=== PATIENT | male | born 1945 | race Caucasian/White ===

== ENCOUNTER → 2017-02-11 | Outpatient (CLI) | payer OTHER ==
[~2017-02-11] MED LIST: AMR2 PO; CPRDOTS OTR; FLM4 PO; GADAVIST IV PRN; HYDCR1CL TOP; INSDGIPEN SC; LISI-787 PO; METF-384 PO; VGR50 PO
--- NOTE | 2017-02-11 21:47 | DIAGNOSTIC IMAGING REPORT ---
MRI right foot RIGHT LOWER EXT NON JOINT COMBO CLINICAL HISTORY: OSTEOMYELITIS Right osteomyelitis TECHNIQUE: Multiaxial MRI acquisition COMPARISON STUDY: None FINDINGS: Severe cellulitis-type process over the dorsal aspect of the osseous structures of the foot and forefoot. Findings of bone marrow replacement involving the proximal and distal phalanx of the great toe. Considerable associated granulation and/or inflammatory tissue. These regions show considerable postcontrast enhancement. Very subtle in homogeneity medial lateral aspect of the distal first metatarsal raise the possibility of very early and or minimal osteomyelitis like change. The remaining phalanges show generally unremarkable signal characteristics. No additional bone marrow replacing process is identified. There is no evidence for a drainable abscess or collection. IMPRESSION: 1. Findings of diffuse cellulitis, although there is no evidence for drainable abscess or collection. 2. Osteomyelitis with bony destructive change involving the proximal and distal phalanx of the great toe. 3. Possible early minimal osteomyelitis-type change distal aspect first metatarsal. 4. No additional foci of osteomyelitis.. 5. Moderate generalized degenerative change. Electronically signed by: Abdullahi Zapata M.D. 02/11/2017 9:45 PM Dictated Date/Time: 02/11/2017 9:42 PM
== END | disposition home or self-care (01) ==
LOC: C.MRI 19:46
PROVIDERS: ATTEND Physician Assistant
DX: M86.171 Other acute osteomyelitis, right ankle and foot (principal)

== ENCOUNTER 2018-03-26 13:05 | Inpatient (IN) | payer OTHER ==
[~2018-03-26] VITALS: Ht 162.6 cm; Wt 92.8 kg
[2018-03-26] VITALS (12 sets, daily range): BP systolic 103–133; BP diastolic 61–81; PULSE 72–90; TEMP 36.8–37.8; O2SAT 93–97; Ht 162.6 cm; Wt 92.8 kg
[~2018-03-26 13:05] MED LIST changes: -GADAVIST IV PRN
[2018-03-26] MEDS ORDERED: DiphenhydrAMINE HCL 50 MG/ML VIAL IV STA (13:41)
[2018-03-26] MEDS ORDERED: FAMOTIDINE 20MG/5ML IV PUSH IV STA (13:41)
[2018-03-26] MEDS ORDERED: METHYLPREDNISOLONE 125 MG VIAL IV STA (13:41)
[2018-03-26 14:23] LABS: BASO % 0.3 %; BASO ABS # 0.03 K/uL (0-0.2); EOS % 1.8 %; EOS ABS # 0.21 K/uL (0-0.5); HEMATOCRIT 43.8 % (42-52); HEMOGLOBIN 15.5 g/dL (14.0-18.0); IG# 0.03 K/uL (0.00-0.02); LYMPH % 26.7 %; LYMPH ABS # 3.13 K/uL (1.2-3.4); MEAN CELL VOLUME 84.1 fL (80-100); MEAN CORPUSCULAR HEMOGLOBIN 29.8 pg (25-34); MEAN CORPUSCULAR HGB CONC 35.4 g/dl (32-36); MEAN PLATELET VOLUME 10.5 fL (7.4-10.4); MONO % 7.2 %; MONO ABS # 0.85 K/uL (0.11-0.59); NEUT % 63.7 %; NEUT ABS # 7.49 K/uL (1.4-6.5); PLATELET COUNT 253 K/uL (130-400); RED CELL DISTRIBUTION WIDTH CV 12.2 % (11.5-14.5); RED CELL DISTRIBUTION WIDTH SD 37.3 fL (36.4-46.3); WHITE BLOOD COUNT 11.74 K/uL (4.8-10.8)
[2018-03-26 14:35] LABS: CALCIUM 9.1 mg/dl (8.5-10.1); CREATININE 1.24 mg/dl (0.60-1.40); POTASSIUM 3.5 mmol/L (3.5-5.1)
[2018-03-26] MEDS ORDERED: LSN/10125 PO (14:52)
[2018-03-26] MEDS ORDERED: ASPI81TA28 PO (14:52)
[2018-03-26] MEDS ORDERED: NVLG SC (14:52)
[2018-03-26] MEDS ORDERED: SIMV80TA2 PO (14:52)
[2018-03-26] MEDS ORDERED: DiphenhydrAMINE HCL 50 MG/ML VIAL IV PRN (15:45)
[2018-03-26] MEDS ORDERED: CLONIDINE HCL 0.1 MG TAB PO PRN (15:45)
[2018-03-26] MEDS ORDERED: ALUMINUM/MAGNESIUM/SIMETH (MAALOX MAX) 30 ML UDC PO PRN (15:45)
[2018-03-26] MEDS ORDERED: FAMOTIDINE IV INJ 20 MG in DEXTROSE 5% 100ML 100 ML IV SCH (15:45)
[2018-03-26] MEDS ORDERED: NITROGLYCERIN 0.4 MG SL PER TAB CHARGE SL PRN (15:45)
[2018-03-26] MEDS ORDERED: ACETAMINOPHEN 325 MG TAB PO PRN (15:45)
[2018-03-26] MEDS ORDERED: ONDANSETRON INJ 2 MG/ML 2 ML VIAL IV PRN (15:45)
[2018-03-26] MEDS ORDERED: GLUCAGON FOR INJ 1 MG VIAL IM PRN (16:15)
[2018-03-26] MEDS ORDERED: CARBOHYDRATES FOR HYPOGLYCEMIA PO PRN (16:15)
[2018-03-26] MEDS ORDERED: DEXTROSE 50% 50 ML SYR IV PRN (16:15)
[2018-03-26] MEDS ORDERED: GLUCOSE 40% GEL 15 GM TUBE PO PRN (16:15)
[2018-03-26] MEDS ORDERED: GLUCOSE 10 TABS/TUBE PO PRN (16:15)
--- NOTE | 2018-03-26 16:44 | HISTORY & PHYSICAL EXAMINATION ---
DATE OF ADMISSION: 03/26/2018 CHIEF COMPLAINT: Angioedema. HISTORY OF PRESENT ILLNESS: This is a 72-year-old male with past medical history significant for type 2 diabetes, hyperlipidemia, obesity, hypertension, otitis media, chronic mastoiditis, unilateral hearing loss, presents with angioedema. The patient says in the midnight, he woke up with the swelling of the tongue, and this was not getting better, so he came to the ER. Initially, his tongue was swollen very much. His lips were also swollen, and the ER physician thought of intubating him, but he was responding well with Solu-Medrol, Pepcid, and Benadryl. Swelling has much improved. Denies any shortness of breath. He says he is hungry and wants to eat. Denies any headaches, no blurred vision. He is hard of hearing. He has some runny nose. Denies sore throat, denies cough, no fever, no chills, no chest pain, no shortness of breath, no abdominal pain, no nausea. Normal bowel and bladder movements. Currently resting comfortably and hemodynamically stable. ALLERGIES: No known drug allergies. PAST MEDICAL HISTORY: As mentioned above. PAST SURGICAL HISTORY: Colonoscopy, mastoid surgery, left foot surgery, shoulder arthroscopic surgery. MEDICATIONS: The patient is on aspirin 81 mg p.o. daily, Lantus 35 units at bedtime, Novolin N 5 units under skin b.i.d., lisinopril/hydrochlorothiazide 10/12.5 mg p.o. daily, metformin 1000 mg p.o. b.i.d., simvastatin 80 mg p.o. daily, Flomax 0.4 mg p.o. daily. FAMILY HISTORY: Significant for father who of lung cancer at the age of 54. Mother has hypertension. Uncles, brothers, and aunts have diabetes. SOCIAL HISTORY: . Former smoker, quit in 1980. Alcohol occasional. No drug use. REVIEW OF SYMPTOMS: As per HPI. Rest of review of systems negative. PHYSICAL EXAMINATION: GENERAL: The patient is moderate build, not in distress. VITAL SIGNS: Temperature 37, pulse 89, respiratory rate is 16, blood pressure 124/75, oxygen saturation 93% on room air. HEENT: No pallor, no icterus. Pupils equal, round, reactive to light. Swollen tongue and swollen lips. NECK: No JVD, no carotid bruit, no neck masses. CARDIOVASCULAR SYSTEM: S1 and S2 heard, regular rate and rhythm, no murmur, no gallop. RESPIRATORY SYSTEM: Normal AP diameter. No accessory muscle use. No wheezing, no crackles. GASTROINTESTINAL: Abdomen is soft, bowel sounds present, nontender, no distention. CENTRAL NERVOUS SYSTEM: Cranial nerves II through XII grossly intact. Nonfocal. EXTREMITIES: No edema, no erythema. LABORATORY DATA: WBC 11.7, hemoglobin 15.5, hematocrit 43.8, platelets 253. Sodium 132, potassium 3.5, chloride 96, CO2 of 27, BUN 15, creatinine 1.2, serum glucose 315. Calcium 9.1. PT 10.4, INR 1, APTT 26. ASSESSMENT AND PLAN: This is a 72-year-old male who presents with 1. Angioedema, The patient says there is no change in medication recently. No insect bites. No food allergy. Probably lisinopril could be a culprit although the patient is on it for about 10 years on this medication. We will hold lisinopril/hydrochlorothiazide medication. The patient received IV methylprednisone, IV Pepcid, and IV Benadryl in the ER. We will continue with Claritin, Pepcid, and methylprednisolone. Monitor on the tele floor and IV Benadryl p.r.n. The patient was receiving 2 units of fresh frozen plasma in the ER. 2. Diabetes. The patient is on Lantus 25 units at bedtime and insulin sliding scale. Hold metformin. We will monitor the blood sugar. 3. Hypertension. Holding lisinopril/hydrochlorothiazide. The patient is on clonidine p.r.n. We will monitor the blood pressure. May discharge him on amlodipine. 4. Hyperlipidemia, on statin, which is on hold for now. 5. The patient is to continue Flomax. 6. Deep venous thrombosis prophylaxis: SCDs. 7. Disposition: Admit to tele floor. Expect to discharge him home and follow with his family doctor. Level 1. Full code. MTDD
[2018-03-26] MEDS: SODIUM CHLORIDE 0.9% 1000ML 1,000 ML IV SCH (17:10)
[2018-03-26] MEDS: INSULIN ASPART 100 UNITS/ML 3 ML PEN SC SCH ×2 (18:00→21:34)
--- NOTE | 2018-03-26 19:21 | EMERGENCY ROOM VISIT NOTE ---
History Report prepared by Shira: Felicia Robledo Under the Supervision of: Dr. Carlos Vega M.D. First contact with patient: 13:34 Chief Complaint: FACIAL PAIN/INJURY Stated Complaint: SWELLED TOUNGE History of Present Illness The patient is a 72 year old male who presents to the Emergency Room with complaints of a sudden swollen tongue since 0001 this morning. He states that the swelling has gone down since. The patient reports having shortness of breath initially but has since resolved since the swelling in his tongue has decreased. He also complains of swollen neck, but denies having rashes and fevers. He states that he has been on Lisinopril for years. He denies eating anything usual. The patient denies any pain to his neck or mouth or recent dental work. Source of History: patient Onset: 2017 this morning Position: tongue Symptom Intensity: moderate Quality: other (swollen) Timing: other (Improving) Associated Symptoms: + SOB, No fevers, No rash Note: additional symptom: swollen neck Review of Systems See HPI for pertinent positives & negatives. A total of 10 systems reviewed and were otherwise negative. Past Medical & Surgical Medical Problems: (1) Angioedema (2) Hypertension Family History No pertinent family history Social History Smoking Status: Former Smoker Marital Status: Occupation Status: retired Current/Historical Medications Scheduled Aspirin (Aspirin Ec), 81 MG PO DAILY Hctz/Lisinopril (Lisinopril/Hctz 10/12.5 Mg), 1 TAB PO DAILY Insulin Aspart (Novolog), 5 UNITS SC TID Insulin Glargine (Lantus Solostar), 35 UNITS SC HS Metformin Hcl (Glucophage), 1,000 MG PO BID Simvastatin (Zocor), 80 MG PO QPM Tamsulosin HCl (Tamsulosin HCl), 0.4 MG PO DAILY Allergies Coded Allergies: No Known Allergies (Unverified , 03/26/18) Physical Exam Vital Signs Date Time Temp Pulse Resp B/P (MAP) Pulse Ox O2 Delivery O2 Flow Rate FiO2 03/26/18 15:37 37.0 90 18 117/77 97 03/26/18 15:22 37.0 73 16 124/75 93 03/26/18 15:06 72 16 125/78 94 Room Air 03/26/18 14:59 76 18 133/72 94 Room Air 03/26/18 14:51 95 Room Air 03/26/18 14:51 95 Room Air 03/26/18 14:48 76 20 112/72 95 Room Air 03/26/18 14:36 72 19 133/75 95 Room Air 03/26/18 14:23 72 19 119/73 94 03/26/18 14:18 78 18 122/66 96 Room Air 03/26/18 14:10 96 Room Air 03/26/18 14:08 78 20 119/69 96 Room Air 03/26/18 14:05 96 Room Air 03/26/18 14:01 96 Room Air 03/26/18 13:58 80 20 125/87 96 Room Air 03/26/18 13:48 82 03/26/18 13:23 37.1 90 20 122/74 95 Room Air Physical Exam Constitutional: Vital signs reviewed. Eyes: Pupils are equal round reactive to light. Conjunctiva are noninjected. ENT: Mild swelling to the tongue, no uvula edema. No significant swelling to the throat, no elevation of the tongue. No tenderness to the submental region. Patient is edentulous. Mucous membranes are moist. Respiratory: Clear to auscultation bilaterally. Breath sounds are equal bilaterally. Cardiovascular: Regular rate and rhythm. No rubs or gallops. GI: Soft, nondistended and nontender. Bowel sounds are present. Musculoskeletal: No peripheral edema. No lower extremity tenderness. Integumentary: No cyanosis. No urticaria. Neurological: The patient is awake and alert. No focal deficits. Psychiatric: Normal affect. Medical Decision & Procedures Laboratory Results 03/26/18 13:51 Red Blood Count 5.21, Mean Corpuscular Volume 84.1, Mean Corpuscular Hemoglobin 29.8, Mean Corpuscular Hemoglobin Concent 35.4, Mean Platelet Volume 10.5, Neutrophils (%) (Auto) 63.7, Lymphocytes (%) (Auto) 26.7, Monocytes (%) (Auto) 7.2, Eosinophils (%) (Auto) 1.8, Basophils (%) (Auto) 0.3, Neutrophils # (Auto) 7.49, Lymphocytes # (Auto) 3.13, Monocytes # (Auto) 0.85, Eosinophils # (Auto) 0.21, Basophils # (Auto) 0.03 03/26/18 13:51 Test 03/26/18 13:51 03/26/18 14:06 White Blood Count 11.74 K/uL (4.8-10.8) Red Blood Count 5.21 M/uL (4.7-6.1) Hemoglobin 15.5 g/dL (14.0-18.0) Hematocrit 43.8 % (42-52) Mean Corpuscular Volume 84.1 fL (80-100) Mean Corpuscular Hemoglobin 29.8 pg (25-34) Mean Corpuscular Hemoglobin Concent 35.4 g/dl (32-36) Platelet Count 253 K/uL (130-400) Mean Platelet Volume 10.5 fL (7.4-10.4) Neutrophils (%) (Auto) 63.7 % Lymphocytes (%) (Auto) 26.7 % Monocytes (%) (Auto) 7.2 % Eosinophils (%) (Auto) 1.8 % Basophils (%) (Auto) 0.3 % Neutrophils # (Auto) 7.49 K/uL (1.4-6.5) Lymphocytes # (Auto) 3.13 K/uL (1.2-3.4) Monocytes # (Auto) 0.85 K/uL (0.11-0.59) Eosinophils # (Auto) 0.21 K/uL (0-0.5) Basophils # (Auto) 0.03 K/uL (0-0.2) RDW Standard Deviation 37.3 fL (36.4-46.3) RDW Coefficient of Variation 12.2 % (11.5-14.5) Immature Granulocyte % (Auto) 0.3 % Immature Granulocyte # (Auto) 0.03 K/uL (0.00-0.02) Prothrombin Time 10.4 SECONDS (9.0-12.0) Prothromb Time International Ratio 1.0 (0.9-1.1) Activated Partial Thromboplast Time 26.0 SECONDS (21.0-31.0) Partial Thromboplastin Ratio 1.0 Anion Gap 7.0 mmol/L (3-11) Est Creatinine Clear Calc Drug Dose 55.3 ml/min Estimated GFR () 66.9 Estimated GFR (Non- 57.7 BUN/Creatinine Ratio 12.1 (10-20) Calcium Level 9.1 mg/dl (8.5-10.1) Beta-Hydroxybutyric Acid 0.94 mg/dL (0.2-2.81) Hepatitis C Antibody Screen NEG (NEG) Laboratory results as reviewed by me. Medications Administered Medications (Trade) Dose Ordered Sig/Larissa Route Start Time Stop Time Status Last Admin Dose Admin Methylprednisolone Sodium Succinate (Solu-Medrol IV) 125 mg NOW STAT IV 03/26/18 13:41 03/26/18 13:44 DC 03/26/18 13:53 125 MG Diphenhydramine HCl (Benadryl Inj) 50 mg NOW STAT IV 03/26/18 13:41 03/26/18 13:44 DC 03/26/18 13:54 50 MG Famotidine (Pepcid 20mg Iv Push) 20 mg ONE STAT IV 03/26/18 13:41 03/26/18 13:44 DC 03/26/18 13:51 20 MG ED Course 1336: The patient was evaluated in room C8. A complete history and physical exam was performed. 1341: Ordered Famotidine 20 mg IV, Benadryl Inj 50 mg IV, Methylprednisolone Sodium Succinate 125 mg IV. 1345: The patient was moved to the trauma bay. I again explained carefully why we are giving him FFP and his diagnosis and treatment plan. The patient denies having worsening symptoms. He also consented to intubation if necessary. 1410: I spoke to Dr. Posada who said that he is happy to take the patient to the ICU if necessary. I said I will speak to the hospitalist to see how they feel. He agrees that it is unlikely to be Bryan's due to rapid improvement. 1413: I reassessed the patient. We are still waiting for FFP. He denies any symptoms besides being hungry. He has no change in appearance. 1452: I spoke with Mana Ramos PA-C of the [facility] Hospitalist Service. We discussed the patient and his results. The patient will be further evaluated by Mana Ramos PA-C. 1545: I checked on the patient. FFP is infusing. He does not have any change in symptoms. Medical Decision This is a 72-year-old male who presents with swelling to his tongue and throat. Differential diagnosis includes MARYSOL inhibitor induced angioedema, idiopathic angioedema, allergic reaction, Bryan's angina I did perform a limited focused review of portions of the patient's old chart on the electronic medical record. The patient has had no recent pertinent visits to this hospital. I did evaluate the patient as noted above. Patient is presenting with angioedema. He did show me a picture from how he first looked on his phone. He had severe swelling of his tongue at that time which was protruding out of his mouth. Currently he has some mild swelling but has significant swelling to his neck. He does not require immediate intubation. He has no difficulty breathing or stridor. I do suspect he has MARYSOL inhibitor induced angioedema as he is on Zestoretic. I do not believe he has Claudia's angina. The patient is edentulous and has no pain to his throat or mouth. He also has no fever. Additionally he has had significant improvement spontaneously which is not consistent with Bryan's. IV access was established. The patient was moved to the trauma bay. I did obtain consent for transfusion of blood products. I did transfuse the patient 2 units of FFP. I did treat the patient with IV Solu- Medrol, Pepcid and Benadryl. The patient was placed on a continuous gambling monitor. I did order and personally review the patient's 12-lead EKG as described above. I did order and review the patient's blood work as noted in the electronic medical record. He is hyperglycemic. He is mildly hyponatremic. I did reassess the patient multiple times. I did explain the diagnosis to him and his . I did discuss case with the manager of training. I did discuss case with the hospitalist and case preparer and liner. He was accepted to the ICU. Medication Reconcilliation Current Medication List: was personally reviewed by me Blood Pressure Screening Patient's blood pressure: Normal blood pressure Consults Time Called: 1400 Consulting Physician: Dr. Posada, Vice President Of Compliance Returned Call: [address] Posada who said that he is happy to take the patient to the ICU if necessary. I said I will speak to the hospitalist to see how they feel. He agrees that it is unlikely to be Bryan's due to rapid improvement. Additional Consults: Time Called: 1452 Consulted Physician: Mana Ramos PA-C, [facility] Returned Call: 1452 Additional Comments: I spoke with Mana Ramos PA-C of the [facility]ist [facility]. We discussed the patient and his results. The patient will be further evaluated by Mana Ramos PA-C. Impression Primary Impression: Angioedema Additional Impressions: Hyponatremia Hyperglycemia Critical Care I have personally spent 40 minutes of critical care time in the direct management of this patient. This includes bedside care, interpretation of diagnostic studies, and testing, discussion with consultants, patient, and family members, and other required patient management activities. This 40 minutes is in excess of all separately billable procedures. Scribe Attestation The scribe's documentation has been prepared under my direct and personally reviewed by me in its entirety. I confirm that the note above accurately reflects all work, treatment, procedures, and medical decision making performed by me. Departure Information Dispostion Being Evaluated By Hospitalist Referrals Lamberto Razo M.D. (PCP) Patient Instructions [facility] Problem Qualifiers Primary Impression: Angioedema Encounter type: initial encounter Qualified Codes: T78.3XXA - Angioneurotic edema, initial encounter
[2018-03-26] MEDS ORDERED: INSULIN GLARGINE SOLOSTAR 100 UNITS/ML 3 ML PEN SC SCH (21:00)
[2018-03-26] MEDS ORDERED: CETIRIZINE HCL 10 MG TAB PO SCH (21:00)
[2018-03-27] MEDS ORDERED: INSULIN ASPART 100 UNITS/ML 3 ML PEN SC ONE (00:15)
[2018-03-27 00:25] VITALS: BP 123/72; PULSE 71; TEMP 37; O2SAT 95
[2018-03-27 04:09] VITALS: BP 118/66; PULSE 66; TEMP 37; O2SAT 92
[2018-03-27] MEDS: SODIUM CHLORIDE 0.9% 1000ML 1,000 ML IV SCH (05:19)
[2018-03-27] MEDS ORDERED: FAMOTIDINE IV INJ 20 MG in SYRINGE 3 ML IV SCH (06:00)
[2018-03-27 06:13] LABS: BASO % 0.1 %; BASO ABS # 0.01 K/uL (0-0.2); HEMATOCRIT 40.6 % (42-52); HEMOGLOBIN 14.3 g/dL (14.0-18.0); IG# 0.03 K/uL (0.00-0.02); LYMPH ABS # 1.62 K/uL (1.2-3.4); MEAN CELL VOLUME 84.8 fL (80-100); MEAN CORPUSCULAR HEMOGLOBIN 29.9 pg (25-34); MEAN CORPUSCULAR HGB CONC 35.2 g/dl (32-36); MEAN PLATELET VOLUME 10.4 fL (7.4-10.4); MONO % 3.5 %; MONO ABS # 0.47 K/uL (0.11-0.59); NEUT % 84.2 %; PLATELET COUNT 256 K/uL (130-400); RED CELL DISTRIBUTION WIDTH SD 37.3 fL (36.4-46.3); WHITE BLOOD COUNT 13.53 K/uL (4.8-10.8)
[2018-03-27 06:43] VITALS: BP 106/59; PULSE 61; TEMP 36.9; O2SAT 94
[2018-03-27 06:45] LABS: CALCIUM 8.7 mg/dl (8.5-10.1); CREATININE 0.96 mg/dl (0.60-1.40); POTASSIUM 3.4 mmol/L (3.5-5.1)
[2018-03-27] MEDS ORDERED: POTASSIUM CHLORIDE 10 MEQ TABCR PO STA (07:35)
[2018-03-27] MEDS: INSULIN ASPART 100 UNITS/ML 3 ML PEN SC SCH ×2 (08:01→11:55)
[2018-03-27] MEDS ORDERED: METHYLPREDNISOLONE IV 60 MG in SYRINGE 0 ML IV SCH (09:00)
[2018-03-27] MEDS ORDERED: TAMSULOSIN HCL 0.4 MG CAP PO SCH (09:00)
[2018-03-27] MEDS ORDERED: ASPIRIN 81 MG ECTAB PO SCH (09:00)
[2018-03-27] MEDS ORDERED: INSULIN GLARGINE SOLOSTAR 100 UNITS/ML 3 ML PEN SC ONE (10:00)
[2018-03-27] MEDS ORDERED: AMLODIPINE BESYLATE 5 MG TAB PO ONE (10:00)
[2018-03-27 10:23] VITALS: BP 106/59; PULSE 61; TEMP 36.9; O2SAT 94
[2018-03-27 10:54] VITALS: BP 114/66; PULSE 67; TEMP 36.6; O2SAT 96
[2018-03-27] MEDS ORDERED: PRED10TA PO (14:56)
[2018-03-27] MEDS ORDERED: ZYR10 PO (14:56)
[2018-03-27] MEDS ORDERED: NRV5 PO (14:56)
[2018-03-27] MEDS ORDERED: RANI150T3 PO (14:56)
--- NOTE | 2018-03-27 15:00 | Discharge Instructions ---
Discharge Instructions Date of Service March 27, 2018. Admission Reason for Admission: Angioedema Discharge Discharge Diagnosis / Problem: angioedema Discharge Goals Goal(s): Decrease discomfort Activity Recommendations Activity Limitations: resume your previous activity . Instructions / Follow-Up Instructions / Follow-Up FOLLOWUP WITH FAMILY DOCTOR ON April AT 12:45PM BLOOD PRESSURE CHECK UP WITH FAMILY DOCTOR. STOPPED BLOOD PRESSURE MEDICATION LISINOPRIL/HCTZ( LISINOPRIL MOST LIKELY CAUSE FOR ALLERGIC REACTION). STARTED ON NEW BLOOD PRESSURE MEDICATION AMLODIPINE 5MG ONE TABLET DAILY. ALSO PRESCRIBED PREDNISONE TAPERING DOSE, ZYRTEC AND ZANTAC FOR COUPLE OF WEEKS. ALLERGY/IMMUNOLOGY REFERRAL PER FAMILY DOCTOR. MONITOR BLOOD SUGARS WHILE ON PREDNISONE Current Hospital Diet Patient's current hospital diet: Diabetes Type 2 Diet, AHA Diet (Heart Healthy) Discharge Diet Recommended Diet: AHA Diet (Heart Healthy), Diabetes Type 2 Diet Pending Studies Studies pending at discharge: no Medical Emergencies . Who to Call and When: Medical Emergencies: If at any time you feel your situation is an emergency, please call 911 immediately. . Non-Emergent Contact Non-Emergency issues call your: Primary Care Provider . . "Provider Documentation" section prepared by Yannick Parson. .
--- NOTE | 2018-03-27 19:16 | Progress Note ---
Internal Med Progress Note Date of Service: March 27, 2018. Provider Documentation: SUBJECTIVE: resting comfortably tounge swelling and lips swelling resolved tolerating regular diet no sob afebrile wants to go home OBJECTIVE: Vital Signs-as noted below Exam: General-alert and awake and oriented. Not in distress ENT-normal hearing Neck-supple Lungs-cta b/l no wheezing or crackles Heart-s1 and s2 heard regular rate and rhythm,no Murmur Abdomen-soft bowel sounds present non tender no distension Extremities-no edema present non tender Neuro-alert and awake moves extremities Lab data as noted below. ASSESSMENT & PLAN: This is a 72-year-old male who presents with 1. Angioedema, The patient says there is no change in medication recently. No insect bites. No food allergy. Probably lisinopril could be a culprit although the patient is on it for about 10 years on this medication. We will hold lisinopril/hydrochlorothiazide medication. The patient received IV methylprednisone, IV Pepcid, and IV Benadryl in the ER. We will continue with zyrtec, Pepcid, and methylprednisolone. Monitor on the tele floor and IV Benadryl p.r.n. The patient was receiving 2 units of fresh frozen plasma in the ER. resolved d/c on prednisone taper, zyrtec and zantac f/u with pcp. 2. Diabetes. The patient is on Lantus 25 units at bedtime and insulin sliding scale. Hold metformin. We will monitor the blood sugar. d/c on home meds. 3. Hypertension. Holding lisinopril/hydrochlorothiazide. The patient is on clonidine p.r.n. stopped lisnopril/hctz on discharge. started on amlodipine 5mg daily f/u with pcp. 4. Hyperlipidemia, on statin, 5. The patient is to continue Flomax. discharged home Vital Signs: Date Time Temp Pulse Resp B/P (MAP) Pulse Ox O2 Delivery O2 Flow Rate FiO2 03/27/18 14:59 Room Air 03/27/18 11:32 Room Air 03/27/18 10:54 36.6 67 20 114/66 (82) 96 Room Air 03/27/18 10:23 36.9 61 16 94 Room Air 03/27/18 08:00 Room Air 03/27/18 06:43 36.9 61 16 106/59 (75) 94 Room Air 03/27/18 04:09 37.0 66 16 118/66 (83) 92 Room Air 03/27/18 04:00 Room Air 03/27/18 00:25 37.0 71 16 123/72 (89) 95 Room Air 03/26/18 23:59 Room Air 03/26/18 22:58 73 18 118/75 94 03/26/18 21:55 37.6 73 17 121/72 94 03/26/18 20:55 37.8 74 17 127/81 94 03/26/18 20:00 Room Air 03/26/18 19:55 37.8 78 17 103/61 94 03/26/18 19:25 36.8 75 16 115/70 94 Lab Results: Results Past 24 Hours Test 03/26/18 20:44 03/27/18 00:01 03/27/18 05:39 03/27/18 07:29 Range/Units Bedside Glucose 391 240 167 70-99 mg/dl White Blood Count 13.53 4.8-10.8 K/uL Red Blood Count 4.79 4.7-6.1 M/uL Hemoglobin 14.3 14.0-18.0 g/dL Hematocrit 40.6 42-52 % Mean Corpuscular Volume 84.8 80-100 fL Mean Corpuscular Hemoglobin 29.9 25-34 pg Mean Corpuscular Hemoglobin Concent 35.2 32-36 g/dl Platelet Count 256 130-400 K/uL Mean Platelet Volume 10.4 7.4-10.4 fL Neutrophils (%) (Auto) 84.2 % Lymphocytes (%) (Auto) 12.0 % Monocytes (%) (Auto) 3.5 % Eosinophils (%) (Auto) 0.0 % Basophils (%) (Auto) 0.1 % Neutrophils # (Auto) 11.40 1.4-6.5 K/uL Lymphocytes # (Auto) 1.62 1.2-3.4 K/uL Monocytes # (Auto) 0.47 0.11-0.59 K/uL Eosinophils # (Auto) 0.00 0-0.5 K/uL Basophils # (Auto) 0.01 0-0.2 K/uL RDW Standard Deviation 37.3 36.4-46.3 fL RDW Coefficient of Variation 12.0 11.5-14.5 % Immature Granulocyte % (Auto) 0.2 % Immature Granulocyte # (Auto) 0.03 0.00-0.02 K/uL Sodium Level 135 136-145 mmol/L Potassium Level 3.4 3.5-5.1 mmol/L Chloride Level 101 98-107 mmol/L Carbon Dioxide Level 29 21-32 mmol/L Anion Gap 5.0 3-11 mmol/L Blood Urea Nitrogen 15 7-18 mg/dl Creatinine 0.96 0.60-1.40 mg/dl Est Creatinine Clear Calc Drug Dose 71.5 ml/min Estimated GFR () 91.2 Estimated GFR (Non- 78.7 BUN/Creatinine Ratio 16.0 10-20 Random Glucose 128 70-99 mg/dl Calcium Level 8.7 8.5-10.1 mg/dl Magnesium Level 2.0 1.8-2.4 mg/dl Test 03/27/18 11:24 Range/Units Bedside Glucose 212 70-99 mg/dl
--- NOTE | 2018-03-27 19:34 | Discharge Summary ---
Discharge Summary Date of Service March 27, 2018. Discharge Summary Admission Date: March 26, 2018 at 15:48 Discharge Date: March 27, 2018 Discharge Disposition: Home Principal Diagnosis: ANGIOEDEMA Secondary Diagnoses/Problems: type 2 diabetes, hyperlipidemia, obesity, hypertension, otitis media, chronic mastoiditis, unilateral hearing loss Medication Reconciliation New Medications: Amlodipine Besylate (Amlodipine Besylate) 5 Mg Tab 5 MG PO DAILY, #30 TAB 1 Refill Prednisone Tab (Prednisone) 10 Mg Tab 50 MG PO UD, #30 TAB PREDNSIONE 50MG PO DAILY X 2 DAYS THEN PREDNSIONE 40MG PO DAILY X 2 DAYS THEN PREDNSIONE 30MG PO DAILY X 2 DAYS THEN PREDNSIONE 20MG PO DAILY X 2 DAYS THEN PREDNSIONE 10MG PO DAILY X 2 DAYS THEN STOP Ranitidine Hcl (Zantac) 150 Mg Tab 150 MG PO BID, #30 TAB Cetirizine HCl (All Day Allergy) 10 Mg Tab 10 MG PO HS for 14 Days, TAB Continued Medications: Aspirin (Aspirin Ec) 81 Mg Tab 81 MG PO DAILY Insulin Aspart (Novolog) 100 Units/Ml Inj 5 UNITS SC TID Insulin Glargine (Lantus Solostar) 100 Unit/Ml Inj 35 UNITS SC HS, PEN Metformin Hcl (Glucophage) 1,000 Mg Tab 1000 MG PO BID, TAB Simvastatin (Zocor) 80 Mg Tab 80 MG PO QPM, TAB Tamsulosin HCl (Tamsulosin HCl) 0.4 Mg Cap 0.4 MG PO DAILY Discontinued Medications: Hctz/Lisinopril (Lisinopril/Hctz 10/12.5 Mg) 1 Ea Tab 1 TAB PO DAILY, TAB Admission Information HPI (per Admitting provider): : This is a 72-year-old male with past medical history significant for type 2 diabetes, hyperlipidemia, obesity, hypertension, otitis media, chronic mastoiditis, unilateral hearing loss, presents with angioedema. The patient says in the midnight, he woke up with the swelling of the tongue, and this was not getting better, so he came to the ER. Initially, his tongue was swollen very much. His lips were also swollen, and the ER physician thought of intubating him, but he was responding well with Solu-Medrol, Pepcid, and Benadryl. Swelling has much improved. Denies any shortness of breath. He says he is hungry and wants to eat. Denies any headaches, no blurred vision. He is hard of hearing. He has some runny nose. Denies sore throat, denies cough, no fever, no chills, no chest pain, no shortness of breath, no abdominal pain, no nausea. Normal bowel and bladder movements. Currently resting comfortably and hemodynamically stable. Physical Exam (per Admitting): GENERAL: The patient is moderate build, not in distress. VITAL SIGNS: Temperature 37, pulse 89, respiratory rate is 16, blood pressure 124/75, oxygen saturation 93% on room air. HEENT: No pallor, no icterus. Pupils equal, round, reactive to light. Swollen tongue and swollen lips. NECK: No JVD, no carotid bruit, no neck masses. CARDIOVASCULAR SYSTEM: S1 and S2 heard, regular rate and rhythm, no murmur, no gallop. RESPIRATORY SYSTEM: Normal AP diameter. No accessory muscle use. No wheezing, no crackles. GASTROINTESTINAL: Abdomen is soft, bowel sounds present, nontender, no distention. CENTRAL NERVOUS SYSTEM: Cranial nerves II through XII grossly intact. Nonfocal. EXTREMITIES: No edema, no erythema. Hospital Course This is a 72-year-old male who presents with 1. Angioedema, The patient says there is no change in medication recently. No insect bites. No food allergy. Probably lisinopril could be a culprit although the patient is on it for about 10 years on this medication. We will hold lisinopril/hydrochlorothiazide medication. The patient received IV methylprednisone, IV Pepcid, and IV Benadryl in the ER. We will continue with zyrtec, Pepcid, and methylprednisolone. Monitor on the tele floor and IV Benadryl p.r.n. The patient was receiving 2 units of fresh frozen plasma in the ER. resolved d/c on prednisone taper, zyrtec and zantac f/u with pcp. 2. Diabetes. The patient is on Lantus 25 units at bedtime and insulin sliding scale. Hold metformin. We will monitor the blood sugar. d/c on home meds. 3. Hypertension. Holding lisinopril/hydrochlorothiazide. The patient is on clonidine p.r.n. stopped lisnopril/hctz on discharge. started on amlodipine 5mg daily f/u with pcp. 4. Hyperlipidemia, on statin, 5. The patient is to continue Flomax. discharged home Total time spent on discharge = 35MINUTES This includes examination of the patient, discharge planning, medication reconciliation, and communication with other providers. Discharge Instructions Discharge Instructions Date of Service March 27, 2018. Admission Reason for Admission: Angioedema Discharge Discharge Diagnosis / Problem: angioedema Discharge Goals Goal(s): Decrease discomfort Activity Recommendations Activity Limitations: resume your previous activity . Instructions / Follow-Up Instructions / Follow-Up FOLLOWUP WITH FAMILY DOCTOR ON April AT 12:45PM BLOOD PRESSURE CHECK UP WITH FAMILY DOCTOR. STOPPED BLOOD PRESSURE MEDICATION LISINOPRIL/HCTZ( LISINOPRIL MOST LIKELY CAUSE FOR ALLERGIC REACTION). STARTED ON NEW BLOOD PRESSURE MEDICATION AMLODIPINE 5MG ONE TABLET DAILY. ALSO PRESCRIBED PREDNISONE TAPERING DOSE, ZYRTEC AND ZANTAC FOR COUPLE OF WEEKS. ALLERGY/IMMUNOLOGY REFERRAL PER FAMILY DOCTOR. MONITOR BLOOD SUGARS WHILE ON PREDNISONE Current Hospital Diet Patient's current hospital diet: Diabetes Type 2 Diet, AHA Diet (Heart Healthy) Discharge Diet Recommended Diet: AHA Diet (Heart Healthy), Diabetes Type 2 Diet Pending Studies Studies pending at discharge: no Medical Emergencies . Who to Call and When: Medical Emergencies: If at any time you feel your situation is an emergency, please call 911 immediately. . Non-Emergent Contact Non-Emergency issues call your: Primary Care Provider
== END 2018-03-27 15:42 | disposition home or self-care (01) | DRG 916 ==
LOC: C.EDB 13:06 → C.2E 15:48 → ENRESERV 16:03
PROVIDERS: ADMIT Internal Medicine; ATTEND Internal Medicine
DX: T78.3XXA Angioneurotic edema, initial encounter (principal); E87.1 Hypo-osmolality and hyponatremia; I10 Essential (primary) hypertension; E11.65 Type 2 diabetes mellitus with hyperglycemia; E78.5 Hyperlipidemia, unspecified; E66.9 Obesity, unspecified; H91.90 Unspecified hearing loss, unspecified ear; H70.10 Chronic mastoiditis, unspecified ear; Z68.35 Body mass index [BMI] 35.0-35.9, adult; Z79.82 Long term (current) use of aspirin; Z87.891 Personal history of nicotine dependence; Z79.4 Long term (current) use of insulin; Z79.84 Long term (current) use of oral hypoglycemic drugs; Z83.3 Family history of diabetes mellitus; Z82.49 Family history of ischemic heart disease and other diseases of the circulatory system; Z80.1 Family history of malignant neoplasm of trachea, bronchus and lung

== ENCOUNTER 2021-11-08 10:35 | Inpatient (IN) ==
--- NOTE | 2021-11-08 10:54 | Emergency Department Note ---
History of Present Illness General Chief complaint: Shortness of Breath/Dyspnea Stated complaint: VOMITING,NAUSEA,RUNNY NOSE,SOB Time Seen by Provider: 11/08/21 10:42 Source: patient Mode of arrival: wheelchair Limitations: physical limitation (severely CHILKAT) History of Present Illness Provider complaint: Multiple complaints Onset (ago): day(s) 4 Maximum Pain Intensity: 4 Associated symptoms: + headaches, + loss of appetite, + malaise, + nausea/vomiting and + weakness; no chest pain, no cough, no fever/chills or no shortness of breath This is a 76 male [facility] emergency room with multiple complaints that he states began on Thursday. Patient states he has had weakness, lightheadedness, poor appetite, nausea. He denies vomiting or diarrhea, denies overt fevers or chills. Only bedside states he lives with them and no one else in the household has been ill. They cannot provide any additional history. Difficulty obtaining history from the patient as he is severely hard of hearing. Patient does have chronic lower extremity edema that he feels is unchanged. Patient denies worsening cough or shortness of breath at rest, however states he feels more winded with exertion. Denies chest pain or abdominal pain. Denies any new medications. Pt seen during a time of high acuity and national emergency pandemic while wearing PPE. Home Medications Medication Instructions Recorded Confirmed Type amlodipine 5 mg tablet 5 mg PO DAILY 11/08/21 11/08/21 History aspirin 81 mg tablet,delayed 81 mg PO DAILY 11/08/21 11/08/21 History release atorvastatin 40 mg tablet 40 mg PO DAILY 11/08/21 11/08/21 History insulin NPH isoph U-100 human 100 35 unit SUBCUT HS 11/08/21 11/08/21 History unit/mL subcutaneous suspension (Novolin N NPH U-100 Insulin isophane) insulin regular human 100 unit/mL 5 unit SUBCUT TID 11/08/21 11/08/21 History injection solution (Novolin R Regular U-100 Insulin) metformin 1,000 mg tablet 1,000 mg PO BID 11/08/21 11/08/21 History tamsulosin 0.4 mg capsule 0.4 mg PO HS 11/08/21 11/08/21 History Allergies Allergy/AdvReac Type Severity Reaction Status Date / Time No Known Allergies Allergy Unverified 03/26/18 14:44 Past Med/Surg History Social History Feels Safe at Home: Yes Review of Systems A total of 10 systems reviewed and were otherwise negative All systems reviewed & are unremarkable except as noted in HPI & below Physical Exam Vital Signs Vital Signs - 24 hr 11/08/21 10:38 11/08/21 11:33 11/08/21 12:36 Temperature 36.8 C Temperature Source Temporal Artery Scan Pulse Rate 79 Pulse Rate [Apical] 145 H Respiratory Rate 20 23 Respiratory Effort / Characteristics Non-Labored Non-Labored Respiratory Depth Normal Respiratory Pattern Regular Blood Pressure 156/83 H Blood Pressure [Left Arm] 129/90 Blood Pressure Mean 107 Blood Pressure Mean [Left Arm] 103 Pulse Oximetry 97 97 95 Oxygen Delivery Method Room Air Room Air Oxygen Flow Rate 0 Sepsis Recent Fever Within 48 Hours No Sepsis New/Unexplained Change in Mental Status No Sepsis Action Taken by Nursing No Action Required 11/08/21 13:05 11/08/21 13:20 Temperature Temperature Source Pulse Rate 141 H Pulse Rate [Apical] 96 H Respiratory Rate 18 Respiratory Effort / Characteristics Respiratory Depth Respiratory Pattern Blood Pressure 124/93 Blood Pressure [Left Arm] 124/93 Blood Pressure Mean Blood Pressure Mean [Left Arm] 103 Pulse Oximetry Oxygen Delivery Method Oxygen Flow Rate Sepsis Recent Fever Within 48 Hours Sepsis New/Unexplained Change in Mental Status Sepsis Action Taken by Nursing GENERAL: alert, well appearing, well nourished, no distress, non-toxic, severely CHILKAT EYE EXAM: normal conjunctiva, PERRL and EOM's grossly intact OROPHARYNX: no exudate, no erythema, lips, buccal mucosa, and tongue normal and mucous membranes are moist NECK: supple, no nuchal rigidity, no adenopathy, non-tender LUNGS: Clear to auscultation. Normal chest wall mechanics, no w/r/r, no tachypnea or increased work of breathing HEART: JESSICA murmurs, S1 normal and S2 normal ABDOMEN: abdomen soft, non-tender, normo-active bowel sounds, no masses, no rebound or guarding. BACK: Back is symmetrical on inspection and there is no deformity, no midline tenderness, no CVA tenderness. SKIN: no rashes and no bruising UPPER EXTREMITIES: upper extremities are grossly normal. FROM, nml pulses b/l. LOWER EXTREMITIES: 2+ pitting edema b/l, ulcerative area noted anterior distal RLE. FROM, nml pulses b/l. NEURO EXAM: Normal sensorium, cranial nerves II-XII grossly intact, normal speech, no gross weakness of arms, no gross weakness of legs. Gross sensation intact. Course Course 1405: Discussed with [facility]. Administered Medications Heparin Sodium/Dextrose (Heparin Sodium/Dextrose) 25,000 units in 500 mls @ 26 mls/hr IV .[id number] [facility]; Protocol Stop: 12/08/21 14:59 Last Admin: 11/08/21 15:59 Dose: 1,300 units/hr, 26 mls/hr Documented by: [id number] Cosigned by: [id number] Discontinued Medications Furosemide (Furosemide 40 Mg/4 Ml Vial) 40 mg IV ONE ONE Stop: 11/08/21 12:47 Last Admin: 11/08/21 13:08 Dose: 40 mg Documented by: [id number] Heparin Sodium (Porcine) (Heparin Sod (Porcine) 1000 Unit/Ml) 6,000 units IV NOW ONE Stop: 11/08/21 14:55 Last Admin: 11/08/21 15:58 Dose: 6,000 units Documented by: [id number] Cosigned by: [id number] Heparin Sodium (Porcine) (Heparin Sod (Porcine) 1000 Unit/Ml) Confirm Administered Dose 1,000 units .ROUTE .STK-MED ONE Stop: 11/08/21 15:44 Last Admin: 11/08/21 15:59 Dose: Not Given Documented by: [id number] Heparin Sodium/Dextrose (Heparin 32700 Unit/500 Ml D5w) Confirm Administered Dose 25,000 units IV .STK-MED ONE Stop: 11/08/21 15:44 Last Admin: 11/08/21 16:00 Dose: Not Given Documented by: [id number] Cefepime HCl (Maxipime) 2,000 mg in 20 mls @ 5 mls/min IV NOW STA; Protocol Stop: 11/08/21 14:41 Last Admin: 11/08/21 15:27 Dose: 5 mls/min Documented by: [id number] Insulin Human Regular (Novolin-R Insulin Per Unit Charge) 10 units SC NOW STA Stop: 11/08/21 12:47 Last Admin: 11/08/21 12:57 Dose: 10 units Documented by: [id number] Cosigned by: [id number] Insulin Human Regular (Novolin-R Insulin Per Unit Charge) 8 units SC NOW STA Stop: 11/08/21 15:02 Last Admin: 11/08/21 15:26 Dose: 8 units Documented by: [id number] Cosigned by: [id number] Ioversol (Optiray 320 125ml) 79 ml IV ONCE ONE Stop: 11/08/21 15:55 Last Admin: 11/08/21 15:55 Dose: 79 ml Documented by: [id number] Metoprolol Tartrate (Metoprolol Tartrate 1 Mg/Ml Vial) 5 mg IV NOW STA Stop: 11/08/21 12:57 Last Admin: 11/08/21 13:05 Dose: 5 mg Documented by: [id number] Metoprolol Tartrate (Metoprolol Tartrate 1 Mg/Ml Vial) 5 mg IV NOW STA Stop: 11/08/21 14:33 Last Admin: 11/08/21 14:44 Dose: 5 mg Documented by: [id number] Medical Decision Making Differential Diagnosis Differential Diagnosis includes but is not limited to dehydration, stroke, anemia, hypoglycemia, hyponatremia, hypernatremia, urinary tract infection, pneumonia, bronchitis, sepsis, gastroenteritis, additional abdominal pathology, metabolic abnormalities and infections. Medical Records Attestation: I reviewed the patient's medical records. Home Medications Current Medication List: was personally reviewed by me Laboratory Data Attestation: I reviewed the patient's lab results. Result diagrams: 11/08/21 11:23 11/08/21 11:23 Lab Results 11/08/21 11/08/21 11/08/21 Range/Units 11:23 11:23 11:23 WBC 16.89 H (4.8-10.8) K/uL RBC 4.42 L (4.7-6.1) M/uL Hgb 13.3 L (14.0-18.0) g/dL Hct 39.7 L (42-52) % MCV 89.8 (80-100) fL MCH 30.1 (25-34) pg MCHC 33.5 (32-36) g/dL RDW Std Deviation 42.8 (36.4-46.3) fL RDW Coeff of Scott 13.1 (11.5-14.5) % Plt Count 409 H (130-400) K/uL MPV 10.6 H (7.4-10.4) fL Immature Gran % (Auto) 0.4 % Neut % (Auto) 83.1 % Lymph % (Auto) 8.0 % Ray % (Auto) 8.2 % Eos % (Auto) 0.2 % Baso % (Auto) 0.1 % Neut # (Auto) 14.04 H (1.4-6.5) K/uL Lymph # (Auto) 1.35 (1.2-3.4) K/uL Ray # (Auto) 1.38 H (0.11-0.59) K/uL Eos # (Auto) 0.03 (0-0.5) K/uL Baso # (Auto) 0.02 (0-0.2) K/uL Immature Gran # (Auto) 0.07 H (0.00-0.02) K/uL PT (9.0-12.0) Seconds INR (0.9-1.1) APTT (21.0-31.0) Seconds PTT Ratio Sodium 129 L (136-145) mmol/L Potassium 4.3 (3.5-5.1) mmol/L Chloride 93 L (98-107) mmol/L Carbon Dioxide 29 (21-32) mmol/L Anion Gap 7.0 (3-11) BUN 23 H (7-18) mg/dl Creatinine 1.32 (0.6-1.4) mg/dl Est Cr Clr Drug Dosing 48.2 ml/min Est GFR ( Amer) 60.3 ml/min Est GFR (Non-Af Amer) 52.0 ml/min BUN/Creatinine Ratio 17.1 (10-20) Glucose 497 H* (70-99) mg/dl POC Glucose (70-99) mg/dl Osmolality (280-300) mOsm/kg Lactate (0.4-2.0) mmol/L Calcium 9.4 (8.5-10.1) mg/dl Magnesium 2.2 (1.8-2.4) mg/dl Total Bilirubin 0.8 (0.2-1) mg/dl AST 15 (15-37) U/L ALT 20 (12-78) Alkaline Phosphatase 112 (45-117) U/L Troponin I < 0.015 (0-0.045) ng/ml NT-Pro-B Natriuret Pep 2219 H (0-1800) pg/ml Total Protein 8.5 H (6.4-8.2) gm/dl Albumin 2.9 L (3.4-5.0) gm/dl Globulin 5.6 H (2.5-4.0) gm/dl Albumin/Globulin Ratio 0.5 L (0.9-2) Lipase 214 (73-393) U/L Beta-Hydroxybutyric Acd (0.2-2.81) mg/dl Procalcitonin (0-0.5) ng/ml TSH 2.020 (0.300-4.500) uIu/ml Nasal Screen MRSA (PCR) (Negative) SARS-CoV-2 (PCR) NEGATIVE (Negative) Influenza Type A (PCR) Negative (Neg) Influenza Type B (PCR) Negative (Neg) RSV (RT-PCR) Negative (Neg) 11/08/21 11/08/21 11/08/21 Range/Units 11:23 11:23 13:00 WBC (4.8-10.8) K/uL RBC (4.7-6.1) M/uL Hgb (14.0-18.0) g/dL Hct (42-52) % MCV (80-100) fL MCH (25-34) pg MCHC (32-36) g/dL RDW Std Deviation (36.4-46.3) fL RDW Coeff of Scott (11.5-14.5) % Plt Count (130-400) K/uL MPV (7.4-10.4) fL Immature Gran % (Auto) % Neut % (Auto) % Lymph % (Auto) % Ray % (Auto) % Eos % (Auto) % Baso % (Auto) % Neut # (Auto) (1.4-6.5) K/uL Lymph # (Auto) (1.2-3.4) K/uL Ray # (Auto) (0.11-0.59) K/uL Eos # (Auto) (0-0.5) K/uL Baso # (Auto) (0-0.2) K/uL Immature Gran # (Auto) (0.00-0.02) K/uL PT 10.5 (9.0-12.0) Seconds INR 1.0 (0.9-1.1) APTT 29.8 (21.0-31.0) Seconds PTT Ratio 1.1 Sodium (136-145) mmol/L Potassium (3.5-5.1) mmol/L Chloride (98-107) mmol/L Carbon Dioxide (21-32) mmol/L Anion Gap (3-11) BUN (7-18) mg/dl Creatinine (0.6-1.4) mg/dl Est Cr Clr Drug Dosing ml/min Est GFR ( Amer) ml/min Est GFR (Non-Af Amer) ml/min BUN/Creatinine Ratio (10-20) Glucose (70-99) mg/dl POC Glucose (70-99) mg/dl Osmolality 312 H (280-300) mOsm/kg Lactate (0.4-2.0) mmol/L Calcium (8.5-10.1) mg/dl Magnesium (1.8-2.4) mg/dl Total Bilirubin (0.2-1) mg/dl AST (15-37) U/L ALT (12-78) Alkaline Phosphatase (45-117) U/L Troponin I (0-0.045) ng/ml NT-Pro-B Natriuret Pep (0-1800) pg/ml Total Protein (6.4-8.2) gm/dl Albumin (3.4-5.0) gm/dl Globulin (2.5-4.0) gm/dl Albumin/Globulin Ratio (0.9-2) Lipase (73-393) U/L Beta-Hydroxybutyric Acd (0.2-2.81) mg/dl Procalcitonin 0.50 (0-0.5) ng/ml TSH (0.300-4.500) uIu/ml Nasal Screen MRSA (PCR) (Negative) SARS-CoV-2 (PCR) (Negative) Influenza Type A (PCR) (Neg) Influenza Type B (PCR) (Neg) RSV (RT-PCR) (Neg) 11/08/21 11/08/21 11/08/21 Range/Units 13:40 14:01 14:03 WBC (4.8-10.8) K/uL RBC (4.7-6.1) M/uL Hgb (14.0-18.0) g/dL Hct (42-52) % MCV (80-100) fL MCH (25-34) pg MCHC (32-36) g/dL RDW Std Deviation (36.4-46.3) fL RDW Coeff of Scott (11.5-14.5) % Plt Count (130-400) K/uL MPV (7.4-10.4) fL Immature Gran % (Auto) % Neut % (Auto) % Lymph % (Auto) % Ray % (Auto) % Eos % (Auto) % Baso % (Auto) % Neut # (Auto) (1.4-6.5) K/uL Lymph # (Auto) (1.2-3.4) K/uL Ray # (Auto) (0.11-0.59) K/uL Eos # (Auto) (0-0.5) K/uL Baso # (Auto) (0-0.2) K/uL Immature Gran # (Auto) (0.00-0.02) K/uL PT (9.0-12.0) Seconds INR (0.9-1.1) APTT (21.0-31.0) Seconds PTT Ratio Sodium (136-145) mmol/L Potassium (3.5-5.1) mmol/L Chloride (98-107) mmol/L Carbon Dioxide (21-32) mmol/L Anion Gap (3-11) BUN (7-18) mg/dl Creatinine (0.6-1.4) mg/dl Est Cr Clr Drug Dosing ml/min Est GFR ( Amer) ml/min Est GFR (Non-Af Amer) ml/min BUN/Creatinine Ratio (10-20) Glucose (70-99) mg/dl POC Glucose 398 H* (70-99) mg/dl Osmolality (280-300) mOsm/kg Lactate 1.7 (0.4-2.0) mmol/L Calcium (8.5-10.1) mg/dl Magnesium (1.8-2.4) mg/dl Total Bilirubin (0.2-1) mg/dl AST (15-37) U/L ALT (12-78) Alkaline Phosphatase (45-117) U/L Troponin I (0-0.045) ng/ml NT-Pro-B Natriuret Pep (0-1800) pg/ml Total Protein (6.4-8.2) gm/dl Albumin (3.4-5.0) gm/dl Globulin (2.5-4.0) gm/dl Albumin/Globulin Ratio (0.9-2) Lipase (73-393) U/L Beta-Hydroxybutyric Acd (0.2-2.81) mg/dl Procalcitonin (0-0.5) ng/ml TSH (0.300-4.500) uIu/ml Nasal Screen MRSA (PCR) Negative (Negative) SARS-CoV-2 (PCR) (Negative) Influenza Type A (PCR) (Neg) Influenza Type B (PCR) (Neg) RSV (RT-PCR) (Neg) Imaging Data Radiologist's Impression: Chest X-Ray 11/08/21 10:50 XR chest 1V portable CLINICAL HISTORY: weak, cough TECHNIQUE: Single frontal radiograph of the chest was obtained. Comparison: None available at the time of this dictation. FINDINGS: No lines and tubes are seen. The cardiomediastinal silhouette is normal. The lungs are clear. No evidence of pleural effusion or pneumothorax. IMPRESSION: No acute chest disease. ACT 112: Negative or not required by law. Electronically signed by: Anderson Serra M.D. 11/08/2021 11:53 AM ECG Data Attestation: I personally reviewed and interpreted this ECG as follows: Indication: + SOB/dyspnea Rate (beats per minute): 101 Rhythm: + sinus tachycardia ECG Intervals/blocks: + Normal QRS and + Normal QT ECG [place]: + Left axis deviation ECG ST segments: + Nonspecific ST abnormalities ECG Findings: + PACs Additional Comments: Repeat EKG from 1314 shows atrial fibrillation with RVR at a rate of 108, a right bundle branch block with a QRS of 126, normal QT, left axis, and nonspecific ST/T wave changes MDM Narrative This is a 76-year-old male presents emergency department due to multiple symptoms that he states began the beginning of the week. Patient severely hard of hearing, initial HPI very limited as a result of this. Labs drawn and sent, chest x-ray performed, patient started on telemetry. Family at bedside only able to provide minimal additional information. Patient found to have a leukocytosis. Patient noted to have bilateral lower extremity edema which she stated was chronic and unchanged, however there was an ulcerative lesion noted anteriorly to the distal right lower extremity with mild surrounding erythema. Patient denied any worsening pain at the site. While patient being evaluated he was noted to have a rhythm change that now appeared to be atrial fibrillation with RVR. Repeat EKG was performed. Patient's chest x-ray did not show any obvious pneumonia or acute pulmonary edema. Patient found to have an elevated BNP. Patient denied any prior history of CHF. Patient was given 1 dose of metoprolol IV with improvement in his overall rate. Despite lower extremity edema I do not suspect PE. No hypoxia or increased shortness of breath noted, patient describes trouble breathing with exertion. Covid swab negative. Patient otherwise remained hemodynamically stable. He denied any coming chest pain or shortness of breath at rest. Blood cultures and procalcitonin added due to leukocytosis. Nasal swab performed due to need for additional inpatient evaluation, and MRSA swab added. Patient also noted to have marked hyperglycemia. Patient given SQ insulin with some improvement. No evidence of DKA. Case discussed with hospitalist for additional evaluation and management. An order was placed for continuous cardiac monitoring. The monitor shows a rate of _108_ with _atrial fibrillation_ rhythm. Impression & Plan Dyspnea, Atrial fibrillation with rapid ventricular response, Elevated brain natriuretic peptide (BNP) level, Bilateral edema of lower extremity, Leukocytosis Discharge Plan Visit Data Chief Complaint: Shortness of Breath/Dyspnea Stated Complaint: VOMITING,NAUSEA,RUNNY NOSE,SOB ED Provider: Era Peterson Discharge Problem: Dyspnea, Atrial fibrillation with rapid ventricular response, Elevated brain natriuretic peptide (BNP) level, Bilateral edema of lower extremity, Leukocytosis Patient Disposition: Being Evaluated by Hospitalist Discharge Instructions Interventions: ED Discharge Assessment Last Done: 11/08/21 16:16 Discharge Problem: Dyspnea Qualifiers: Dyspnea type: shortness of breath Qualified Code(s): R06.02 - Shortness of breath Leukocytosis Qualifiers: Leukocytosis type: unspecified Qualified Code(s): D72.829 - Elevated white blood cell count, unspecified
[2021-11-08 11:33] LABS: Basophils # (auto) 0.02 K/uL (0-0.2); Basophils % (auto) 0.1 %; Eosinophils # (auto) 0.03 K/uL (0-0.5); Eosinophils % (auto) 0.2 %; Hematocrit (blood only) 39.7 % (42-52); Hemoglobin 13.3 g/dL (14.0-18.0); Immature Granulocytes # (auto) 0.07 K/uL (0.00-0.02); Immature Granulocytes % (auto) 0.4 %; Lymphocytes # (auto) 1.35 K/uL (1.2-3.4); Mean Corpuscular Hemoglobin 30.1 pg (25-34); Mean Corpuscular Hgb Conc 33.5 g/dL (32-36); Mean Corpuscular Volume 89.8 fL (80-100); Mean Platelet Volume 10.6 fL (7.4-10.4); Monocytes # (auto) 1.38 K/uL (0.11-0.59); Monocytes % (auto) 8.2 %; Neutrophils # (auto) 14.04 K/uL (1.4-6.5); Neutrophils % (auto) 83.1 %; Platelet Count 409 K/uL (130-400); RDW Coefficient of Variation 13.1 % (11.5-14.5); RDW Standard Deviation 42.8 fL (36.4-46.3); Red Blood Count 4.42 M/uL (4.7-6.1); White Blood Count 16.89 K/uL (4.8-10.8)
--- NOTE | 2021-11-08 11:54 | XRay Report ---
XR chest 1V portable CLINICAL HISTORY: weak, cough TECHNIQUE: Single frontal radiograph of the chest was obtained. Comparison: None available at the time of this dictation. FINDINGS: No lines and tubes are seen. The cardiomediastinal silhouette is normal. The lungs are clear. No evid ence of pleural effusion or pneumothorax. IMPRESSION: No acute chest disease. ACT 112: Negative or not required by law. Electronically signed by: Anderson Serra M.D. 11/08/2021 11:53 AM
[2021-11-08 12:15] LABS: Influenza A virus by PCR Negative (Neg); Influenza B virus by PCR Negative (Neg); RSV by PCR Negative (Neg); SARS CoV2 RNA(COVID-19) InHosp NEGATIVE (Negative)
[2021-11-08 12:39] LABS: Alanine Aminotransferase 20 (12-78); Albumin Globulin Ratio 0.5 (0.9-2); Albumin Level 2.9 gm/dl (3.4-5.0); Alkaline Phosphatase 112 U/L (45-117); Aspartate Aminotransferase 15 U/L (15-37); BUN Creatinine Ratio 17.1 (10-20); Bilirubin,Total 0.8 mg/dl (0.2-1); Blood Urea Nitrogen 23 mg/dl (7-18); Calcium 9.4 mg/dl (8.5-10.1); Carbon Dioxide 29 mmol/L (21-32); Chloride 93 mmol/L (98-107); Creatinine Clr Calc Pharmacy 48.2 ml/min; Est GFR (African American) 60.3 ml/min; Globulin 5.6 gm/dl (2.5-4.0); Glucose 497 mg/dl (70-99); Lipase 214 U/L (73-393); Magnesium 2.2 mg/dl (1.8-2.4); NT Pro B Type Natriuretic Pept 2219 pg/ml (0-1800); Potassium 4.3 mmol/L (3.5-5.1); Sodium 129 mmol/L (136-145); Total Protein 8.5 gm/dl (6.4-8.2); Troponin I < 0.015 ng/ml (0-0.045)
[2021-11-08] MEDS ORDERED: NovoLIN-R INSULIN PER UNIT CHARGE SC STA ×2 (12:46→15:01)
[2021-11-08] MEDS ORDERED: FUROSEMIDE 40 MG/4 ML VIAL IV ONE (12:46)
[2021-11-08] MEDS ORDERED: METOPROLOL TARTRATE 1 MG/ML VIAL IV STA ×2 (12:56→14:32)
[2021-11-08] MEDS ORDERED: CEFEPIME 2,000 MG/20 ML VIAL IV STA (14:38)
[2021-11-08] MEDS ORDERED: HEPARIN SOD (PORCINE) 1000 UNIT/ML IV ONE (14:54)
[2021-11-08 15:09] LABS: Appearance Urine Clear (Clear); Bacteria Urine Automated Negative (Negative); Bilirubin Urine Negative (Negative); Blood Urine Negative (Negative); Cast Urine Automated 0 /lpf (0-5); Color Urine Yellow; Glucose Urine UA 3+ (Negative); Ketones Urine Negative (Negative); Leukocyte Esterase Urine 1+ (Negative); Nitrite Urine Negative (Negative); Protein Urine Negative (Negative); RBC Urine Automated 0-4 /hpf (0-4); Specific Gravity Urine 1.012 (1.000-1.030); Urobilinogen Urine Negative (Negative); WBC Urine Automated >30 /hpf (0-5); pH Urine 6.5 (4.5-7.5)
[2021-11-08 15:17] LABS: D Dimer 1760 ug/L FEU (0-500)
[2021-11-08] MEDS ORDERED: HEPARIN 25000 UNIT/500 ML D5W IV ONE (15:43)
[2021-11-08] MEDS ORDERED: HEPARIN SOD (PORCINE) 1000 UNIT/ML ONE (15:43)
[2021-11-08] MEDS ORDERED: OPTIRAY 320 125ml IV ONE (15:54)
[2021-11-08 15:57] LABS: Partial Thromboplastin Ratio 1.1; Partial Thromboplastin Time 29.8 Seconds (21.0-31.0); Prothrombin Time 10.5 Seconds (9.0-12.0)
[2021-11-08] MEDS: HEPARIN SODIUM/DEXTROSE 25,000 UNITS/500 ML BAG IV SCH (15:59)
--- NOTE | 2021-11-08 16:03 | CT Scan Report ---
CT angio chest PE protocol CLINICAL HISTORY: SOB TECHNIQUE: Multidetector row helical CT of the chest was performed. Coronal and sagittal reformations were obtained. Coronal and sagittal MIPS were obtained from the axial data set and were submitted fo r review. Automated dose lowering techniques and/or adjustment according to patient size were utiliz ed for this exam. Comparison: None available at the time of this dictation. FINDINGS: Lungs and pleura: Mosaic attenuation is seen. Bibasilar atelectasis is noted. Heart and pericardium: Heart size is normal. No pericardial effusion. Vessels: No evidence of pulmonary embolism. Mediastinum and gregorio: Unremarkable. Chest wall and lower neck: Unremarkable. Abdomen: A hiatal hernia is seen. Bones: Degenerative changes in the thoracic spine. Old healed rib fractures are incidentally noted on the left. IMPRESSION: 1. No evidence of pulmonary embolism. 2. Mosaic attenuation may reflect small airways disease. No evidence of consolidation to suggest pne [facility]. ACT 112: Negative or not required by law. Electronically signed by: Anderson Serra M.D. 11/08/2021 4:02 PM
[2021-11-08] MEDS ORDERED: PHARMACY GLYCEMIC MGMT CONSULT PRN (16:14)
[2021-11-08] MEDS ORDERED: GLUCOSE 10 TABS/TUBE PO PRN (16:14)
[2021-11-08] MEDS ORDERED: DEXTROSE 50% 50 ML SYRINGE IV PRN (16:14)
[2021-11-08] MEDS ORDERED: ACETAMINOPHEN 325 MG TAB PO PRN (16:14)
[2021-11-08] MEDS ORDERED: GLUCOSE 40% GEL 15 GM TUBE PO PRN (16:14)
[2021-11-08] MEDS ORDERED: CARBOHYDRATES FOR HYPOGLYCEMIA PO PRN (16:14)
[2021-11-08] MEDS ORDERED: GLUCAGON FOR INJ 1 MG VIAL SQ PRN (16:14)
--- NOTE | 2021-11-08 16:18 | Electrocardiogram Report ---
Test Reason : Blood Pressure : / mmHG Vent. Rate : 101 BPM Atrial Rate : 144 BPM P-R Int : 144 ms QRS Dur : 114 ms QT Int : 384 ms P-R-T Axes : 048 -55 065 degrees QTc Int : 497 ms Sinus tachycardia with Premature atrial complexes Right bundle branch block Left anterior fascicular block Bifascicular block Left ventricular hypertrophy with repolarization abnormality Cannot rule out Septal infarct , age undetermined Abnormal ECG When compared with ECG of 21-OCT-2012 11:14, Premature atrial complexes are now Present (RBBB and left anterior fascicular block) is now Present Confirmed by Hill Echevarria ([id number]) on 11/08/2021 4:18:12 PM Referred By: Confirmed By:Hill Echevarria
--- NOTE | 2021-11-08 16:20 | Electrocardiogram Report ---
Test Reason : Blood Pressure : / mmHG Vent. Rate : 108 BPM Atrial Rate : 082 BPM P-R Int : 000 ms QRS Dur : 126 ms QT Int : 364 ms P-R-T Axes : 000 -58 069 degrees QTc Int : 487 ms Atrial fibrillation with rapid ventricular response Right bundle branch block Left anterior fascicular block Bifascicular block Voltage criteria for left ventricular hypertrophy Cannot rule out Septal infarct (cited on or before 08-NOV-2021) Abnormal ECG When compared with ECG of 08-NOV-2021 11:05, (unconfirmed) Atrial fibrillation has replaced Sinus rhythm Confirmed by Hill Echevarria ([id number]) on 11/08/2021 4:20:44 PM Referred By: REFERRED SELF Confirmed By:Hill Echevarria
[2021-11-08] MEDS ORDERED: PIPERACILL/TAZOBAC CONSULT ACTIVE PRN (16:42)
[2021-11-08] MEDS ORDERED: PIPERACILLIN/TAZOBACTAM 4.5 GM in DEXTROSE 5% 100 ML IV ONE (17:00)
--- NOTE | 2021-11-08 17:05 | Ultrasound Report ---
BILATERAL LOWER EXTREMITY VENOUS DOPPLER HISTORY: elevated D-dimer, swollen lower extremities COMPARISON STUDY: None. FINDINGS: There is normal compressibility, flow, and augmentation within the bilateral lower extremit y deep venous systems. IMPRESSION: No DVT within the right or left lower extremity. ACT 112: Negative or not required by law. Electronically signed by: Del Blackburn M.D. 11/08/2021 5:04 PM
--- NOTE | 2021-11-08 17:13 | History & Physical Report ---
Date of Service November 08, 2021 Assessment & Plan (1) Atrial fibrillation with rapid ventricular response: Plan: -Admit to telemetry -Patient presenting from home with reports of worsening shortness of breath x 1 week. -In the ED, found to be in new onset atrial fibrillation with RVR -S/p metoprolol 5 mg IV x 2 with improvement in heart rate, will start metoprolol tartrate 12.5 mg p.o. every 6 hours -[id number] -will start IV heparin bolus and drip -Echo -Cardiology consult, input appreciated -Given clear CXR in the setting of new onset A. fib, D-dimer was checked and found to be elevated. CTA chest negative for PE and BL LE Doppler negative for DVT (2) Volume overload: Plan: -Lower extremity edema noted on exam -S/p Lasix 40 mg IV in the ED, continue Lasix 40 mg IV daily -Hanna placed for strict I's and O's, low Na+ diet, daily weights -? Tachycardia induced heart failure vs other, echo pending (3) Cellulitis: Plan: -LLE erythematous and warm to touch. Wound noted on right anterior quintana. -WBC 16 K, tachycardic. Normal lactate and stable BP. -Start IV Zosyn -Noted negative MRSA nasal swab -Wound care nurse consult (4) DM type 2 (diabetes mellitus, type 2): Plan: -Hgb A1c 13.2 01/2021, history of noncompliance -Presenting with uncontrolled hyperglycemia, glucose of 497 -No signs of DKA -Received SQ insulin in the ED with improvement in blood sugar -Continue with Lantus and NovoLog per protocol -Glycemic pharmacy consult (5) Abnormal urinalysis: Plan: -UA does not strongly suggest UTI -On IV Zosyn as above -Follow urine culture (6) Hypertension: Plan: -BP currently controlled -will hold amlodipine for now while starting metoprolol (7) DVT prophylaxis: Plan: -On IV heparin Admission and Anticipated Discharge Date Admission Date: November 08, 2021 History of Present Illness Chief Complaint: Shortness of Breath Primary Care Provider: James Maria, 76 year old male with PMH DM type II, HTN, BPH, medical non compliance, and other problems listed below who presents to the ED with reports of shortness of breath. Patient is extremely hard of hearing and history is difficult to obtain. is also at the bedside however she is a poor historian as well. Patient has been complaining of nausea and worsening shortness of breath over the past 1 week. He reports one episode of vomiting. He has lower extremity edema on exam and patient and are both unsure how long it has been present. Patient denies chest pain and palpitations. No lightheadedness, dizziness, diaphoresis, syncopal events. No abdominal pain or diarrhea. Denies bright red bleeding per rectum, dark tarry stools, hematemesis, coffee-ground emesis. No urinary symptoms. No fevers or chills. In the ED, patient is found to be in new onset atrial fibrillation with RVR. He has bilateral lower extremity swelling with evidence of cellulitis on the left anterior quintana. WBC 16 K. BP stable, lactate WNL. Glucose 497. Patient was given IV cefepime, IV Lasix 40 mg, 10 units regular insulin SQ, metoprolol 5 mg IV. Allergies Allergy/AdvReac Type Severity Reaction Status Date / Time No Known Allergies Allergy Unverified 03/26/18 14:44 Home Medications Medication Instructions Recorded Confirmed Type amlodipine 5 mg tablet 5 mg PO DAILY 11/08/21 11/08/21 History aspirin 81 mg tablet,delayed 81 mg PO DAILY 11/08/21 11/08/21 History release atorvastatin 40 mg tablet 40 mg PO DAILY 11/08/21 11/08/21 History insulin NPH isoph U-100 human 100 35 unit SUBCUT HS 11/08/21 11/08/21 History unit/mL subcutaneous suspension (Novolin N NPH U-100 Insulin isophane) insulin regular human 100 unit/mL 5 unit SUBCUT TID 11/08/21 11/08/21 History injection solution (Novolin R Regular U-100 Insulin) metformin 1,000 mg tablet 1,000 mg PO BID 11/08/21 11/08/21 History tamsulosin 0.4 mg capsule 0.4 mg PO HS 11/08/21 11/08/21 History Past Med/Surg History Medical History BPH (benign prostatic hyperplasia) DM type 2 (diabetes mellitus, type 2) Hypertension Surgical History H/O shoulder surgery S/P foot surgery, left Family History Brother Diabetes Social History (Updated 11/08/21 @ 17:24 by BARTOLO Galvin) Smoking Status: Former smoker Hx Alcohol Use: No Feels Safe at Home: Yes Review of Systems Review of Systems: ROS per HPI, all other systems reviewed and negative Physical Exam Constitutional: + ill appearing; no acute distress Eyes: PERRL, conjunctivae normal, anicteric sclerae ENMT: external ear and nose normal, oropharynx normal Ears: + hearing impairment Respiratory: normal respiratory effort, lungs clear to auscultation Cardiovascular: Rate/Rhythm: + tachycardic and + irregularly irregular Vessels: normal peripheral pulses Extremities: + edema (+2 pitting edema BLE) Gastrointestinal (Abdomen): normal bowel sounds, soft, nontender, no hepatosplenomegaly Musculoskeletal: no cyanosis or clubbing, extremities motor strength 5/5 Skin: no rashes, warm and dry Dry, cracking skin noted BLE; right anterior quintana wound without significant surrounding erythema or drainage; left anterior quintana red and warm to touch, no drainage noted Neurologic: PERRL, EOMI, accommodation nl, no face palsy, no dysarthria Psychiatric: A+Ox3, euthymic affect Results & Data Results & Data ([facility]) Vital Signs (Past 12 Hours) Vital Signs Temp Pulse Pulse Resp BP BP Pulse Ox 11/08/21 16:00 93 H 18 93 11/08/21 14:42 140 H 18 108/73 95 11/08/21 13:20 96 H 18 124/93 11/08/21 13:05 141 H 124/93 11/08/21 12:36 145 H 23 129/90 95 11/08/21 11:33 97 11/08/21 10:38 36.8 C 79 20 156/83 H 97 Laboratory Results Short CBC 11/08/21 11/08/21 Range/Units 11:23 11:23 WBC 16.89 H (4.8-10.8) K/uL Hgb 13.3 L (14.0-18.0) g/dL Hct 39.7 L (42-52) % Plt Count 409 H (130-400) K/uL Glucose 497 H* (70-99) mg/dl BMP 11/08/21 11:23 Sodium 129 L Potassium 4.3 Chloride 93 L Carbon Dioxide 29 BUN 23 H Creatinine 1.32 Glucose 497 H* Calcium 9.4 Cardiac Enzymes 11/08/21 Range/Units 11:23 Troponin I < 0.015 (0-0.045) ng/ml Liver Function 11/08/21 Range/Units 11:23 Total Bilirubin 0.8 (0.2-1) mg/dl AST 15 (15-37) U/L ALT 20 (12-78) Alkaline Phosphatase 112 (45-117) U/L Albumin 2.9 L (3.4-5.0) gm/dl Urine 11/08/21 Range/Units 15:00 Urine Color Yellow Urine Appearance Clear (Clear) Urine pH 6.5 (4.5-7.5) Ur Specific [place] 1.012 (1.000-1.030) Urine Protein Negative (Negative) Urine Glucose (UA) 3+ H (Negative) Diagnostic Findings Chest X-Ray 11/08/21 10:50 XR chest 1V portable CLINICAL HISTORY: weak, cough TECHNIQUE: Single frontal radiograph of the chest was obtained. Comparison: None available at the time of this dictation. FINDINGS: No lines and tubes are seen. The cardiomediastinal silhouette is normal. The lungs are clear. No evidence of pleural effusion or pneumothorax. IMPRESSION: No acute chest disease. ACT 112: Negative or not required by law. Electronically signed by: Anderson Serra M.D. 11/08/2021 11:53 AM Venous Doppler Study 11/08/21 15:22 BILATERAL LOWER EXTREMITY VENOUS DOPPLER HISTORY: elevated D-dimer, swollen lower extremities COMPARISON STUDY: None. FINDINGS: There is normal compressibility, flow, and augmentation within the bilateral lower extremity deep venous systems. IMPRESSION: No DVT within the right or left lower extremity. ACT 112: Negative or not required by law. Electronically signed by: Del Blackburn M.D. 11/08/2021 5:04 PM Chest CTA 11/08/21 15:36 CT angio chest PE protocol CLINICAL HISTORY: SOB TECHNIQUE: Multidetector row helical CT of the chest was performed. Coronal and sagittal reformations were obtained. Coronal and sagittal MIPS were obtained from the axial data set and were submitted for review. Automated dose lowering techniques and/or adjustment according to patient size were utilized for this exam. Comparison: None available at the time of this dictation. FINDINGS: Lungs and pleura: Mosaic attenuation is seen. Bibasilar atelectasis is noted. Heart and pericardium: Heart size is normal. No pericardial effusion. Vessels: No evidence of pulmonary embolism. Mediastinum and gregorio: Unremarkable. Chest wall and lower neck: Unremarkable. Abdomen: A hiatal hernia is seen. Bones: Degenerative changes in the thoracic spine. Old healed rib fractures are incidentally noted on the left. IMPRESSION: 1. No evidence of pulmonary embolism. 2. Mosaic attenuation may reflect small airways disease. No evidence of consolidation to suggest pneumonia. ACT 112: Negative or not required by law. Electronically signed by: Anderson Serra M.D. 11/08/2021 4:02 PM Code Status & VTE Plan Code Status Patient is a full code as per my discussion with him. VTE Prophylaxis Plan VTE Prophylaxis will be ordered: No Supervising Physician Co-Signing Physician Notes Primary concern is 76-year-old man extremely hard of hearing therefore history is challenging. Presents with worsening shortness of breath over the last week and worsening lower extremity edema. Found to have new onset atrial fibrillation with rapid ventricular response. Also hyperglycemic with a glucose of 497. Leukocytosis present 16 K with a normal lactate. He is not septic appearing but has a left lower extremity cellulitis that is evident. Denies any fevers or chills. Physical exam reveals overall hypervolemia but patient is comfortable and not tachypneic. He is oxygenating well on room air. Heart exam reveals S1/S2 heard with no murmurs gallops or rubs. An irregularly irregular rhythm was auscultated. Pulmonary auscultation was clear throughout but prompted coughing that was nonproductive. Abdomen was soft, protuberant, nondistended and nontender. 2+ pitting edema in bilateral lower extremities with lower extremity erythema extending up the leg around a well-healed anterior tibial wound and stopping short of the knee. There is additional warmth to this area and no clear area of drainage. Hanna is in place and he appears to have 1200 cc output just 2 hours after Lasix IV was given. He responded well to Lasix and two doses of IV Lopressor and subsequently was put on oral Lopressor for rate control. Agree with plan above including echocardiogram and cardiac consult. In the setting of clear chest x-ray with new onset atrial fibrillation and swollen legs a D-dimer was checked and elevated. A CT of the chest with contrast revealed no evidence of PE and there was no blood clot in either lower extremity. Continue heparin drip for stroke prevention, and insulin overnight to correct hyperglycemia. DO Jonathan
[2021-11-08] MEDS ORDERED: INSULIN GLARGINE SOLOSTAR 100 UNITS/ML 3 ML PEN SC ONE (17:15)
[2021-11-08] MEDS: METOPROLOL TARTRATE 25 MG TAB PO SCH ×2 (17:18→21:45)
[2021-11-08] MEDS ORDERED: PIPERACILLIN/TAZOBACTAM 4.5 GM/120ML D5W IV ONE (17:38)
[2021-11-08] MEDS: Heparin IV Adult Wt-Based Standard WITH Bolus Protocol IV SCH ×2 (18:06→18:07)
[2021-11-08] MEDS: INSULIN ASPART PER UNIT SC SCH ×2 (18:39→21:34)
--- NOTE | 2021-11-08 19:32 | Pharmacy Report ---
Pharmacy Glycemic Short Note 2 - Date of Service November 08, 2021 - Glycemic Short BSG Results (Last 24 hours): 11/08/21 11/08/21 11/08/21 11:23 14:01 17:04 Glucose 497 H* POC Glucose 398 H* 255 H 11/08/21 18:12 Glucose POC Glucose 213 H OUTPATIENT ANTIDIABETIC REGIMEN: * NPH 35 units SC HS * Novolin R 5 units SC TIDM * Metformin 1000 mg PO BIDM * HbA1c pending ASSESSMENT: * FA is a 76 year old male presented to ED today with complaints of nausea and worsening shortness of breath x 1 week, subsequently found to be in Afib with RVR. Patient also with LLE cellulitis. * BSG on presentation of 497 mg/dL, treated with 18 units of SC Novolin-R * BSGs trended downward, 213 mg/dL at dinnertime * Will give reduced dose of basal insulin today in light of clear liquid diet PLAN FOR INPATIENT GLYCEMIC CONTROL: * Hold outpatient oral diabetes medications * Basal insulin * Lantus 25 units SC x 1 (~70% of home basal dose) * Bolus insulin * NovoLog per scale ACHS or Q6hrs while NPO * Goal Range: Low 110 mg/dL - High 140 mg/dL * Correction Factor: 30 mg/dL/unit * Nutritional / Prandial insulin per carb ratio of 1 unit per 8 grams CHO consumed PLAN FOR DISCHARGE: * tbd
[2021-11-08] MEDS ORDERED: INSULIN GLARGINE SOLOSTAR 100 UNITS/ML 3 ML PEN SC SCH (21:00)
[2021-11-08] MEDS: PIPERACILLIN/TAZOBACTAM 3.375 GM in DEXTROSE 5% 100 ML IV SCH (21:45)
[2021-11-08] MEDS: TAMSULOSIN HCL 0.4 MG CAP PO SCH (21:45)
[2021-11-08 23:36] LABS: Partial Thromboplastin Ratio 1.5; Partial Thromboplastin Time 39.3 Seconds (21.0-31.0)
[2021-11-09] MEDS ORDERED: INSULIN ASPART PER UNIT SC SCH (02:00)
[2021-11-09] MEDS: METOPROLOL TARTRATE 25 MG TAB PO SCH ×3 (03:48→20:51)
[2021-11-09] MEDS: PIPERACILLIN/TAZOBACTAM 3.375 GM in DEXTROSE 5% 100 ML IV SCH ×3 (06:12→20:58)
[2021-11-09 07:21] LABS: Hematocrit (blood only) 35.4 % (42-52); Hemoglobin 11.8 g/dL (14.0-18.0); Mean Corpuscular Hemoglobin 29.9 pg (25-34); Mean Corpuscular Hgb Conc 33.3 g/dL (32-36); Mean Corpuscular Volume 89.6 fL (80-100); Mean Platelet Volume 10.5 fL (7.4-10.4); Platelet Count 404 K/uL (130-400); RDW Coefficient of Variation 13.3 % (11.5-14.5); RDW Standard Deviation 43.8 fL (36.4-46.3); Red Blood Count 3.95 M/uL (4.7-6.1); White Blood Count 21.54 K/uL (4.8-10.8)
[2021-11-09 07:46] LABS: Partial Thromboplastin Ratio 1.4; Partial Thromboplastin Time 37.3 Seconds (21.0-31.0)
[2021-11-09] MEDS: INSULIN ASPART PER UNIT SC SCH ×4 (07:53→20:58)
[2021-11-09 08:07] LABS: BUN Creatinine Ratio 20.9 (10-20); Calcium 8.6 mg/dl (8.5-10.1); Creatinine Clr Calc Pharmacy 62.3 ml/min; Est GFR (African American) 85.4 ml/min; Est GFR (Non-African American) 73.7 ml/min
[2021-11-09] MEDS: ASPIRIN 81 MG ECTAB PO SCH (08:55)
[2021-11-09] MEDS: ATORVASTATIN 40 MG TAB PO SCH (08:55)
[2021-11-09] MEDS: FUROSEMIDE 40 MG/4 ML VIAL IV SCH (08:56)
[2021-11-09] MEDS ORDERED: HEPARIN SOD (PORCINE) 1000 UNIT/ML IV ONE (09:00)
[2021-11-09 09:08] LABS: Estimated Average Glucose 269 mg/dl
[2021-11-09] MEDS: HEPARIN SODIUM/DEXTROSE 25,000 UNITS/500 ML BAG IV SCH ×2 (09:21→16:10)
[2021-11-09] MEDS ORDERED: POTASSIUM CHLORIDE CRTAB 20 MEQ TABCR PO STA (09:34)
--- NOTE | 2021-11-09 10:51 | Cardiology Consultation ---
Date of Consultation November 09, 2021 Assessment & Plan (1) Paroxysmal atrial fibrillation: (2) Premature atrial complexes: (3) Moderate aortic stenosis: (4) HTN (hypertension): (5) DM type 2 (diabetes mellitus, type 2): Newly diagnosed atrial fibrillation with rapid ventricular response. Patient spontaneously converted to sinus rhythm. Continue beta-arnel therapy. Transition to metoprolol tartrate 25 mg twice daily. Continue intravenous heparin while hospitalized. Recommend Eliquis 5 mg twice daily for chronic anticoagulation. This may be initiated at time of discharge if cost effective. Echocardiogram demonstrating newly diagnosed moderate aortic valve stenosis. Physical exam consistent with this finding. Recommend repeat 2D transthoracic echocardiogram in 6-12 months. Amlodipine can remain on hold to allow for titration of metoprolol as needed. Thank you for allowing to participate in the care of your patient. Outpatient cardiology follow-up in 2-4 weeks. History of Present Illness Reason for Consultation: Paroxysmal atrial fibrillation Requesting Physician: Angela MCFARLAND Attending Physician: Vicente Adamson MD History of Present Illness 76-year-old patient presented to the emergency department with shortness of breath. Interview limited due to severe hearing impairment. H&P reports shortness of breath, however, patient states he had "abdominal discomfort" on admission. Initial ECG demonstrating sinus rhythm with frequent premature atrial complexes with conversion to atrial fibrillation with RVR yesterday. He spontaneously converted back to sinus rhythm with PACs at approximately 5 PM 11/08/2021. Low-dose beta-arnel and intravenous heparin initiated. Bedside echocardiogram revealing preserved LV systolic function with moderate aortic stenosis. Patient resting comfortably. Lying supine without conversational dyspnea. Denies orthopnea or PND. No palpitations, lightheadedness, dizziness, chest discomfort, or unusual shortness of breath. Ambulates with use of a cane. Reports remote fall without significant injury, however, in general he is steady. Lives with his and daughter. Denies any history of GI bleeding. History of diabetes and hypertension. Allergies Allergy/AdvReac Type Severity Reaction Status Date / Time No Known Allergies Allergy Unverified 03/26/18 14:44 Home Medications Medication Instructions Recorded Confirmed Type amlodipine 5 mg tablet 5 mg PO DAILY 11/08/21 11/08/21 History aspirin 81 mg tablet,delayed 81 mg PO DAILY 11/08/21 11/08/21 History release atorvastatin 40 mg tablet 40 mg PO DAILY 11/08/21 11/08/21 History insulin NPH isoph U-100 human 100 35 unit SUBCUT HS 11/08/21 11/08/21 History unit/mL subcutaneous suspension (Novolin N NPH U-100 Insulin isophane) insulin regular human 100 unit/mL 5 unit SUBCUT TID 11/08/21 11/08/21 History injection solution (Novolin R Regular U-100 Insulin) metformin 1,000 mg tablet 1,000 mg PO BID 11/08/21 11/08/21 History tamsulosin 0.4 mg capsule 0.4 mg PO HS 11/08/21 11/08/21 History Patient History Medical History BPH (benign prostatic hyperplasia) DM type 2 (diabetes mellitus, type 2) Hypertension Surgical History H/O shoulder surgery S/P foot surgery, left Family History Brother Diabetes Social History Smoking Status: Never smoker Second Hand Exposure: No; Do You Dip or Chew Tobacco: No; Tobacco Cessation Education Requested by Patient: No Hx Alcohol Use: Yes Alcohol type: beer Hx Substance Use: No Preferred Language: Indonesian Communication Ability: Effective Wrapper Sorter Required: No Beliefs That Will Affect Care: None Current Living Situation: Spouse Other Information That Helps Us Care for You: No Feels Safe at Home: Yes Safety Concerns: Feels Safe At This Time Assistive Devices: None Review of Systems Review of Systems: All systems reviewed & are unremarkable except as noted in Subjective Physical Exam Constitutional: well developed and well nourished; no acute distress ENMT: Ears: + hearing impairment Respiratory: normal respiratory effort; no respiratory distress and no retractions Auscultation: no crackles, no rales, no rhonchi and no wheezes Cardiovascular: Rate/Rhythm: + irregularly irregular Heart Sounds: normal S1, normal S2 and + murmur (3/6 mid to late peaking, systolic, medium pitched) Vessels: no JVD and no carotid bruit Extremities: no edema Gastrointestinal (Abdomen): Inspection/Auscultation: abdomen normal to inspection and normal bowel sounds; abdomen not distended Percussion/Palpatio n: abdomen soft; abdomen nontender, no guarding and abdomen not rigid Neurologic: CN's II-XI intact bilaterally and moves all extremities; no focal motor deficits Motor/Sensory: no tremor Results & Data ([facility]) Vital Signs (Past 12 Hours) Vital Signs Temp Pulse Pulse Resp BP Pulse Ox 11/09/21 07:59 37.0 C 88 16 120/73 96 11/09/21 07:29 84 11/09/21 03:47 36.5 C 73 16 125/76 93 11/08/21 23:00 36.9 C 86 69 16 120/80 93
[2021-11-09] MEDS: DOXYCYCLINE HYCLATE 100 MG in DEXTROSE 5% 100 ML IV SCH (11:22)
--- NOTE | 2021-11-09 11:24 | Hospitalist Progress Note ---
Date of Service November 09, 2021 Assessment & Plan (1) Atrial fibrillation with rapid ventricular response: Plan: -Admitted to telemetry -Patient presenting from home with reports of worsening shortness of breath x 1 week. -In the ED, found to be in new onset atrial fibrillation with RVR -S/p metoprolol 5 mg IV x 2 with improvement in heart rate on admission, started metoprolol tartrate 12.5 mg p.o. every 6 hours -[id number] - started IV heparin on admission -Echo ordered -EF 60 to 65%. There is mild concentric LVH. LA is moderately dilated. Aortic valve is moderately calcified. Moderate valvular aortic stenosis. -Cardiology consulted, input appreciated -Patient converted to sinus rhythm overnight -Plan to switch to metoprolol 25 twice daily, continue IV heparin while inpatient, likely discharge on Eliquis, hold amlodipine while titrating metoprol ol -Patient will also need to follow-up with cardiology in 2 to 4 weeks, and repeat echo in 6 to 12 months, given moderate -Given clear CXR in the setting of new onset A. fib, D-dimer was checked and found to be elevated. CTA chest negative for PE and BL LE Doppler negative for DVT (2) Volume overload: Plan: -Lower extremity edema noted on exam -S/p Lasix 40 mg IV in the ED, continue Lasix 40 mg IV daily -Hanna placed for strict I's and O's, low Na+ diet, daily weights -? Tachycardia induced heart failure vs other, echo ordered -Tachycardia now resolved, patient responding well to Lasix (3) Cellulitis: Plan: -LLE erythematous and warm to touch. Wound noted on right anterior quintana. -WBC 16 K, tachycardic on admission. Normal lactate and stable BP. -Started IV Zosyn on admission, WBC now elevated above 20,000 - Blood cultures pending, added doxycycline for possible MRSA coverage -Noted negative MRSA nasal swab -Wound care nurse consult (4) DM type 2 (diabetes mellitus, type 2): Plan: -Hgb A1c 13.2 01/2021, history of noncompliance Current hemoglobin A1c, 11% -Presenting with uncontrolled hyperglycemia, glucose of 497 -No signs of DKA -Received SQ insulin in the ED with improvement in blood sugar -Continue with Lantus and NovoLog per protocol -Glycemic pharmacy consult (5) Abnormal urinalysis: Plan: -UA does not strongly suggest UTI -On IV Zosyn as above -Follow urine culture (6) Hypertension: Plan: -BP currently controlled -will hold amlodipine for now while starting metoprolol (7) DVT prophylaxis: Plan: -On IV heparin Admission and Anticipated Discharge Date Admission Date: November 08, 2021 Subjective Patient seen in follow-up of Avni parra with RVR Converted to sinus rhythm overnight Blood work concerning for leukocytosis, also A1c obtained this morning at 11% Currently patient is sitting up in bed, eating lunch. Said that he felt hungry at first, but now his appetite is not so good. He says that he has some increased shortness of breath, however he is breathing comfortably on room air. Denies fevers, chills, chest pain, abdominal pain, nausea or vomiting. Hanna catheter is placed, draining clear yellow urine. Patient is very hard of hearing. Review of Systems Review of Systems: All systems reviewed & are unremarkable except as noted in Subjective Physical Exam Physical Exam: Constitutional:L elderly male + ill appearing; no acu te distress Eyes: PERRL, EOMI, conju nctivae normal, an icteric sclerae ENMT: external ear and n ose normal, oropha rynx normal Ears: + hearing impairm ent Respiratory: normal respiratory effort, lungs audi ar to auscultation , + decreased mena th sounds Cardiovascular:L RRR Vessels: jennifer l peripheral pulse s Extremities: + edema (+1 pitting edema BLE) Gastrointestinal ( Abdomen): normal bowel sound s, soft, nontender Musculoskeletal: extremities motor strength 5/5 Skin: warm and dry, crac braydon skin noted BL E; right anterior quintana wound without significant surro unding erythema, l eft anterior quintana red and warm to to uch, no drainage n oted Neurologic: PERRL, EOMI, no fa ce palsy, no dysar thria, moves extre mities Psychiatric: A+Ox3, euthymic af fect Results & Data Results & Data ([facility]) Vital Signs (Past 12 Hours) Vital Signs Temp Pulse Pulse Resp BP Pulse Ox 11/09/21 07:59 37.0 C 88 16 120/73 96 11/09/21 07:29 84 11/09/21 03:47 36.5 C 73 16 125/76 93 Laboratory Results 11/09/21 11/09/21 11/09/21 Range/Units 06:56 06:56 06:56 WBC (4.8-10.8) K/uL RBC (4.7-6.1) M/uL Hgb (14.0-18.0) g/dL Hct (42-52) % MCV (80-100) fL MCH (25-34) pg MCHC (32-36) g/dL RDW Std Deviation (36.4-46.3) fL RDW Coeff of Scott (11.5-14.5) % Plt Count (130-400) K/uL MPV (7.4-10.4) fL Immature Gran % (Auto) % Neut % (Auto) % Lymph % (Auto) % [place] % (Auto) % Eos % (Auto) % Baso % (Auto) % Neut # (Auto) (1.4-6.5) K/uL Lymph # (Auto) (1.2-3.4) K/uL [place] # (Auto) (0.11-0.59) K/uL Eos # (Auto) (0-0.5) K/uL Baso # (Auto) (0-0.2) K/uL Immature Gran # (Auto) (0.00-0.02) K/uL PT (9.0-12.0) Seconds INR (0.9-1.1) APTT 37.3 H (21.0-31.0) Seconds PTT Ratio 1.4 D-Dimer (0-500) ug/L FEU Sodium (136-145) mmol/L Potassium (3.5-5.1) mmol/L Chloride (98-107) mmol/L Carbon Dioxide (21-32) mmol/L Anion Gap (3-11) BUN (7-18) mg/dl Creatinine (0.6-1.4) mg/dl Est Cr Clr Drug Dosing ml/min Est GFR ( Amer) ml/min Est GFR (Non-Af Amer) ml/min BUN/Creatinine Ratio (10-20) Glucose (70-99) mg/dl POC Glucose (70-99) mg/dl Estimat Average Glucose 269 mg/dl Hemoglobin A1c 11.0 H (4.5-5.6) % Osmolality (280-300) mOsm/kg Lactate (0.4-2.0) mmol/L Calcium (8.5-10.1) mg/dl Magnesium 2.1 (1.8-2.4) mg/dl Total Bilirubin (0.2-1) mg/dl AST (15-37) U/L ALT (12-78) Alkaline Phosphatase (45-117) U/L Troponin I (0-0.045) ng/ml NT-Pro-B Natriuret Pep (0-1800) pg/ml Total Protein (6.4-8.2) gm/dl Albumin (3.4-5.0) gm/dl Globulin (2.5-4.0) gm/dl Albumin/Globulin Ratio (0.9-2) Lipase (73-393) U/L Beta-Hydroxybutyric Acd (0.2-2.81) mg/dl Procalcitonin (0-0.5) ng/ml TSH (0.300-4.500) uIu/ml Urine Color Urine Appearance (Clear) Urine pH (4.5-7.5) Ur Specific [place] (1.000-1.030) Urine Protein (Negative) Urine Glucose (UA) (Negative) Urine Ketones (Negative) Urine Blood (Negative) Urine Nitrite (Negative) Urine Bilirubin (Negative) Urine Urobilinogen (Negative) Ur Leukocyte Esterase (Negative) Urine WBC (Auto) (0-5) /hpf Urine RBC (Auto) (0-4) /hpf U Hyaline Cast (Auto) (0-5) /lpf U Epithel Cells (Auto) (0-5) /lpf Urine Bacteria (Auto) (Negative) Urine Osmolality (500-800) mOsm/kg Nasal Screen MRSA (PCR) (Negative) SARS-CoV-2 (PCR) (Negative) Influenza Type A (PCR) (Neg) Influenza Type B (PCR) (Neg) RSV (RT-PCR) (Neg) 11/09/21 11/09/21 11/09/21 Range/Units 06:56 06:56 01:42 WBC 21.54 H (4.8-10.8) K/uL RBC 3.95 L (4.7-6.1) M/uL Hgb 11.8 L (14.0-18.0) g/dL Hct 35.4 L (42-52) % MCV 89.6 (80-100) fL MCH 29.9 (25-34) pg MCHC 33.3 (32-36) g/dL RDW Std Deviation 43.8 (36.4-46.3) fL RDW Coeff of Scott 13.3 (11.5-14.5) % Plt Count 404 H (130-400) K/uL MPV 10.5 H (7.4-10.4) fL Immature Gran % (Auto) % Neut % (Auto) % Lymph % (Auto) % [place] % (Auto) % Eos % (Auto) % Baso % (Auto) % Neut # (Auto) (1.4-6.5) K/uL Lymph # (Auto) (1.2-3.4) K/uL [place] # (Auto) (0.11-0.59) K/uL Eos # (Auto) (0-0.5) K/uL Baso # (Auto) (0-0.2) K/uL Immature Gran # (Auto) (0.00-0.02) K/uL PT (9.0-12.0) Seconds INR (0.9-1.1) APTT (21.0-31.0) Seconds PTT Ratio D-Dimer (0-500) ug/L FEU Sodium 137 D (136-145) mmol/L Potassium 3.0 L D (3.5-5.1) mmol/L Chloride 99 (98-107) mmol/L Carbon Dioxide 31 (21-32) mmol/L Anion Gap 6.0 (3-11) BUN 21 H (7-18) mg/dl Creatinine 0.99 D (0.6-1.4) mg/dl Est Cr Clr Drug Dosing 62.3 ml/min Est GFR ( Amer) 85.4 ml/min Est GFR (Non-Af Amer) 73.7 ml/min BUN/Creatinine Ratio 20.9 H (10-20) Glucose 161 H (70-99) mg/dl POC Glucose 120 H (70-99) mg/dl Estimat Average Glucose mg/dl Hemoglobin A1c (4.5-5.6) % Osmolality (280-300) mOsm/kg Lactate (0.4-2.0) mmol/L Calcium 8.6 (8.5-10.1) mg/dl Magnesium (1.8-2.4) mg/dl Total Bilirubin (0.2-1) mg/dl AST (15-37) U/L ALT (12-78) Alkaline Phosphatase (45-117) U/L Troponin I (0-0.045) ng/ml NT-Pro-B Natriuret Pep (0-1800) pg/ml Total Protein (6.4-8.2) gm/dl Albumin (3.4-5.0) gm/dl Globulin (2.5-4.0) gm/dl Albumin/Globulin Ratio (0.9-2) Lipase (73-393) U/L Beta-Hydroxybutyric Acd (0.2-2.81) mg/dl Procalcitonin (0-0.5) ng/ml TSH (0.300-4.500) uIu/ml Urine Color Urine Appearance (Clear) Urine pH (4.5-7.5) Ur Specific [place] (1.000-1.030) Urine Protein (Negative) Urine Glucose (UA) (Negative) Urine Ketones (Negative) Urine Blood (Negative) Urine Nitrite (Negative) Urine Bilirubin (Negative) Urine Urobilinogen (Negative) Ur Leukocyte Esterase (Negative) Urine WBC (Auto) (0-5) /hpf Urine RBC (Auto) (0-4) /hpf U Hyaline Cast (Auto) (0-5) /lpf U Epithel Cells (Auto) (0-5) /lpf Urine Bacteria (Auto) (Negative) Urine Osmolality (500-800) mOsm/kg Nasal Screen MRSA (PCR) (Negative) SARS-CoV-2 (PCR) (Negative) Influenza Type A (PCR) (Neg) Influenza Type B (PCR) (Neg) RSV (RT-PCR) (Neg) 11/08/21 11/08/21 11/08/21 Range/Units 23:13 23:08 23:08 WBC (4.8-10.8) K/uL RBC (4.7-6.1) M/uL Hgb (14.0-18.0) g/dL Hct (42-52) % MCV (80-100) fL MCH (25-34) pg MCHC (32-36) g/dL RDW Std Deviation (36.4-46.3) fL RDW Coeff of Scott (11.5-14.5) % Plt Count (130-400) K/uL MPV (7.4-10.4) fL Immature Gran % (Auto) % Neut % (Auto) % Lymph % (Auto) % [place] % (Auto) % Eos % (Auto) % Baso % (Auto) % Neut # (Auto) (1.4-6.5) K/uL Lymph # (Auto) (1.2-3.4) K/uL [place] # (Auto) (0.11-0.59) K/uL Eos # (Auto) (0-0.5) K/uL Baso # (Auto) (0-0.2) K/uL Immature Gran # (Auto) (0.00-0.02) K/uL PT (9.0-12.0) Seconds INR (0.9-1.1) APTT 39.3 H (21.0-31.0) Seconds PTT Ratio 1.5 D-Dimer (0-500) ug/L FEU Sodium (136-145) mmol/L Potassium (3.5-5.1) mmol/L Chloride (98-107) mmol/L Carbon Dioxide (21-32) mmol/L Anion Gap (3-11) BUN (7-18) mg/dl Creatinine (0.6-1.4) mg/dl Est Cr Clr Drug Dosing ml/min Est GFR ( Amer) ml/min Est GFR (Non-Af Amer) ml/min BUN/Creatinine Ratio (10-20) Glucose (70-99) mg/dl POC Glucose 73 (70-99) mg/dl Estimat Average Glucose mg/dl Hemoglobin A1c (4.5-5.6) % Osmolality (280-300) mOsm/kg Lactate (0.4-2.0) mmol/L Calcium (8.5-10.1) mg/dl Magnesium (1.8-2.4) mg/dl Total Bilirubin (0.2-1) mg/dl AST (15-37) U/L ALT (12-78) Alkaline Phosphatase (45-117) U/L Troponin I < 0.015 (0-0.045) ng/ml NT-Pro-B Natriuret Pep (0-1800) pg/ml Total Protein (6.4-8.2) gm/dl Albumin (3.4-5.0) gm/dl Globulin (2.5-4.0) gm/dl Albumin/Globulin Ratio (0.9-2) Lipase (73-393) U/L Beta-Hydroxybutyric Acd (0.2-2.81) mg/dl Procalcitonin (0-0.5) ng/ml TSH (0.300-4.500) uIu/ml Urine Color Urine Appearance (Clear) Urine pH (4.5-7.5) Ur Specific [place] (1.000-1.030) Urine Protein (Negative) Urine Glucose (UA) (Negative) Urine Ketones (Negative) Urine Blood (Negative) Urine Nitrite (Negative) Urine Bilirubin (Negative) Urine Urobilinogen (Negative) Ur Leukocyte Esterase (Negative) Urine WBC (Auto) (0-5) /hpf Urine RBC (Auto) (0-4) /hpf U Hyaline Cast (Auto) (0-5) /lpf U Epithel Cells (Auto) (0-5) /lpf Urine Bacteria (Auto) (Negative) Urine Osmolality (500-800) mOsm/kg Nasal Screen MRSA (PCR) (Negative) SARS-CoV-2 (PCR) (Negative) Influenza Type A (PCR) (Neg) Influenza Type B (PCR) (Neg) RSV (RT-PCR) (Neg) 11/08/21 11/08/21 11/08/21 Range/Units 21:32 18:12 17:41 WBC (4.8-10.8) K/uL RBC (4.7-6.1) M/uL Hgb (14.0-18.0) g/dL Hct (42-52) % MCV (80-100) fL MCH (25-34) pg MCHC (32-36) g/dL RDW Std Deviation (36.4-46.3) fL RDW Coeff of Scott (11.5-14.5) % Plt Count (130-400) K/uL MPV (7.4-10.4) fL Immature Gran % (Auto) % Neut % (Auto) % Lymph % (Auto) % [place] % (Auto) % Eos % (Auto) % Baso % (Auto) % Neut # (Auto) (1.4-6.5) K/uL Lymph # (Auto) (1.2-3.4) K/uL [place] # (Auto) (0.11-0.59) K/uL Eos # (Auto) (0-0.5) K/uL Baso # (Auto) (0-0.2) K/uL Immature Gran # (Auto) (0.00-0.02) K/uL PT (9.0-12.0) Seconds INR (0.9-1.1) APTT (21.0-31.0) Seconds PTT Ratio D-Dimer (0-500) ug/L FEU Sodium (136-145) mmol/L Potassium (3.5-5.1) mmol/L Chloride (98-107) mmol/L Carbon Dioxide (21-32) mmol/L Anion Gap (3-11) BUN (7-18) mg/dl Creatinine (0.6-1.4) mg/dl Est Cr Clr Drug Dosing ml/min Est GFR ( Amer) ml/min Est GFR (Non-Af Amer) ml/min BUN/Creatinine Ratio (10-20) Glucose (70-99) mg/dl POC Glucose 105 H 213 H (70-99) mg/dl Estimat Average Glucose mg/dl Hemoglobin A1c (4.5-5.6) % Osmolality (280-300) mOsm/kg Lactate (0.4-2.0) mmol/L Calcium (8.5-10.1) mg/dl Magnesium (1.8-2.4) mg/dl Total Bilirubin (0.2-1) mg/dl AST (15-37) U/L ALT (12-78) Alkaline Phosphatase (45-117) U/L Troponin I < 0.015 (0-0.045) ng/ml NT-Pro-B Natriuret Pep (0-1800) pg/ml Total Protein (6.4-8.2) gm/dl Albumin (3.4-5.0) gm/dl Globulin (2.5-4.0) gm/dl Albumin/Globulin Ratio (0.9-2) Lipase (73-393) U/L Beta-Hydroxybutyric Acd (0.2-2.81) mg/dl Procalcitonin (0-0.5) ng/ml TSH (0.300-4.500) uIu/ml Urine Color Urine Appearance (Clear) Urine pH (4.5-7.5) Ur Specific [place] (1.000-1.030) Urine Protein (Negative) Urine Glucose (UA) (Negative) Urine Ketones (Negative) Urine Blood (Negative) Urine Nitrite (Negative) Urine Bilirubin (Negative) Urine Urobilinogen (Negative) Ur Leukocyte Esterase (Negative) Urine WBC (Auto) (0-5) /hpf Urine RBC (Auto) (0-4) /hpf U Hyaline Cast (Auto) (0-5) /lpf U Epithel Cells (Auto) (0-5) /lpf Urine Bacteria (Auto) (Negative) Urine Osmolality (500-800) mOsm/kg Nasal Screen MRSA (PCR) (Negative) SARS-CoV-2 (PCR) (Negative) Influenza Type A (PCR) (Neg) Influenza Type B (PCR) (Neg) RSV (RT-PCR) (Neg) 11/08/21 11/08/21 11/08/21 Range/Units 17:04 15:00 15:00 WBC (4.8-10.8) K/uL RBC (4.7-6.1) M/uL Hgb (14.0-18.0) g/dL Hct (42-52) % MCV (80-100) fL MCH (25-34) pg MCHC (32-36) g/dL RDW Std Deviation (36.4-46.3) fL RDW Coeff of Scott (11.5-14.5) % Plt Count (130-400) K/uL MPV (7.4-10.4) fL Immature Gran % (Auto) % Neut % (Auto) % Lymph % (Auto) % [place] % (Auto) % Eos % (Auto) % Baso % (Auto) % Neut # (Auto) (1.4-6.5) K/uL Lymph # (Auto) (1.2-3.4) K/uL [place] # (Auto) (0.11-0.59) K/uL Eos # (Auto) (0-0.5) K/uL Baso # (Auto) (0-0.2) K/uL Immature Gran # (Auto) (0.00-0.02) K/uL PT (9.0-12.0) Seconds INR (0.9-1.1) APTT (21.0-31.0) Seconds PTT Ratio D-Dimer (0-500) ug/L FEU Sodium (136-145) mmol/L Potassium (3.5-5.1) mmol/L Chloride (98-107) mmol/L Carbon Dioxide (21-32) mmol/L Anion Gap (3-11) BUN (7-18) mg/dl Creatinine (0.6-1.4) mg/dl Est Cr Clr Drug Dosing ml/min Est GFR ( Amer) ml/min Est GFR (Non-Af Amer) ml/min BUN/Creatinine Ratio (10-20) Glucose (70-99) mg/dl POC Glucose 255 H (70-99) mg/dl Estimat Average Glucose mg/dl Hemoglobin A1c (4.5-5.6) % Osmolality (280-300) mOsm/kg Lactate (0.4-2.0) mmol/L Calcium (8.5-10.1) mg/dl Magnesium (1.8-2.4) mg/dl Total Bilirubin (0.2-1) mg/dl AST (15-37) U/L ALT (12-78) Alkaline Phosphatase (45-117) U/L Troponin I (0-0.045) ng/ml NT-Pro-B Natriuret Pep (0-1800) pg/ml Total Protein (6.4-8.2) gm/dl Albumin (3.4-5.0) gm/dl Globulin (2.5-4.0) gm/dl Albumin/Globulin Ratio (0.9-2) Lipase (73-393) U/L Beta-Hydroxybutyric Acd (0.2-2.81) mg/dl Procalcitonin (0-0.5) ng/ml TSH (0.300-4.500) uIu/ml Urine Color Yellow Urine Appearance Clear (Clear) Urine pH 6.5 (4.5-7.5) Ur Specific [place] 1.012 (1.000-1.030) Urine Protein Negative (Negative) Urine Glucose (UA) 3+ H (Negative) Urine Ketones Negative (Negative) Urine Blood Negative (Negative) Urine Nitrite Negative (Negative) Urine Bilirubin Negative (Negative) Urine Urobilinogen Negative (Negative) Ur Leukocyte Esterase 1+ H (Negative) Urine WBC (Auto) >30 H (0-5) /hpf Urine RBC (Auto) 0-4 (0-4) /hpf U Hyaline Cast (Auto) 0 (0-5) /lpf U Epithel Cells (Auto) 5-10 H (0-5) /lpf Urine Bacteria (Auto) Negative (Negative) Urine Osmolality 310 L (500-800) mOsm/kg Nasal Screen MRSA (PCR) (Negative) SARS-CoV-2 (PCR) (Negative) Influenza Type A (PCR) (Neg) Influenza Type B (PCR) (Neg) RSV (RT-PCR) (Neg) 11/08/21 11/08/21 11/08/21 Range/Units 14:49 14:03 14:01 WBC (4.8-10.8) K/uL RBC (4.7-6.1) M/uL Hgb (14.0-18.0) g/dL Hct (42-52) % MCV (80-100) fL MCH (25-34) pg MCHC (32-36) g/dL RDW Std Deviation (36.4-46.3) fL RDW Coeff of Scott (11.5-14.5) % Plt Count (130-400) K/uL MPV (7.4-10.4) fL Immature Gran % (Auto) % Neut % (Auto) % Lymph % (Auto) % [place] % (Auto) % Eos % (Auto) % Baso % (Auto) % Neut # (Auto) (1.4-6.5) K/uL Lymph # (Auto) (1.2-3.4) K/uL [place] # (Auto) (0.11-0.59) K/uL Eos # (Auto) (0-0.5) K/uL Baso # (Auto) (0-0.2) K/uL Immature Gran # (Auto) (0.00-0.02) K/uL PT (9.0-12.0) Seconds INR (0.9-1.1) APTT (21.0-31.0) Seconds PTT Ratio D-Dimer 1760 H* (0-500) ug/L FEU Sodium (136-145) mmol/L Potassium (3.5-5.1) mmol/L Chloride (98-107) mmol/L Carbon Dioxide (21-32) mmol/L Anion Gap (3-11) BUN (7-18) mg/dl Creatinine (0.6-1.4) mg/dl Est Cr Clr Drug Dosing ml/min Est GFR ( Amer) ml/min Est GFR (Non-Af Amer) ml/min BUN/Creatinine Ratio (10-20) Glucose (70-99) mg/dl POC Glucose 398 H* (70-99) mg/dl Estimat Average Glucose mg/dl Hemoglobin A1c (4.5-5.6) % Osmolality (280-300) mOsm/kg Lactate (0.4-2.0) mmol/L Calcium (8.5-10.1) mg/dl Magnesium (1.8-2.4) mg/dl Total Bilirubin (0.2-1) mg/dl AST (15-37) U/L ALT (12-78) Alkaline Phosphatase (45-117) U/L Troponin I (0-0.045) ng/ml NT-Pro-B Natriuret Pep (0-1800) pg/ml Total Protein (6.4-8.2) gm/dl Albumin (3.4-5.0) gm/dl Globulin (2.5-4.0) gm/dl Albumin/Globulin Ratio (0.9-2) Lipase (73-393) U/L Beta-Hydroxybutyric Acd (0.2-2.81) mg/dl Procalcitonin (0-0.5) ng/ml TSH (0.300-4.500) uIu/ml Urine Color Urine Appearance (Clear) Urine pH (4.5-7.5) Ur Specific [place] (1.000-1.030) Urine Protein (Negative) Urine Glucose (UA) (Negative) Urine Ketones (Negative) Urine Blood (Negative) Urine Nitrite (Negative) Urine Bilirubin (Negative) Urine Urobilinogen (Negative) Ur Leukocyte Esterase (Negative) Urine WBC (Auto) (0-5) /hpf Urine RBC (Auto) (0-4) /hpf U Hyaline Cast (Auto) (0-5) /lpf U Epithel Cells (Auto) (0-5) /lpf Urine Bacteria (Auto) (Negative) Urine Osmolality (500-800) mOsm/kg Nasal Screen MRSA (PCR) Negative (Negative) SARS-CoV-2 (PCR) (Negative) Influenza Type A (PCR) (Neg) Influenza Type B (PCR) (Neg) RSV (RT-PCR) (Neg) 11/08/21 11/08/21 11/08/21 Range/Units 13:40 13:00 11:23 WBC (4.8-10.8) K/uL RBC (4.7-6.1) M/uL Hgb (14.0-18.0) g/dL Hct (42-52) % MCV (80-100) fL MCH (25-34) pg MCHC (32-36) g/dL RDW Std Deviation (36.4-46.3) fL RDW Coeff of Scott (11.5-14.5) % Plt Count (130-400) K/uL MPV (7.4-10.4) fL Immature Gran % (Auto) % Neut % (Auto) % Lymph % (Auto) % [place] % (Auto) % Eos % (Auto) % Baso % (Auto) % Neut # (Auto) (1.4-6.5) K/uL Lymph # (Auto) (1.2-3.4) K/uL [place] # (Auto) (0.11-0.59) K/uL Eos # (Auto) (0-0.5) K/uL Baso # (Auto) (0-0.2) K/uL Immature Gran # (Auto) (0.00-0.02) K/uL PT 10.5 (9.0-12.0) Seconds INR 1.0 (0.9-1.1) APTT 29.8 (21.0-31.0) Seconds PTT Ratio 1.1 D-Dimer (0-500) ug/L FEU Sodium (136-145) mmol/L Potassium (3.5-5.1) mmol/L Chloride (98-107) mmol/L Carbon Dioxide (21-32) mmol/L Anion Gap (3-11) BUN (7-18) mg/dl Creatinine (0.6-1.4) mg/dl Est Cr Clr Drug Dosing ml/min Est GFR ( Amer) ml/min Est GFR (Non-Af Amer) ml/min BUN/Creatinine Ratio (10-20) Glucose (70-99) mg/dl POC Glucose (70-99) mg/dl Estimat Average Glucose mg/dl Hemoglobin A1c (4.5-5.6) % Osmolality 312 H (280-300) mOsm/kg Lactate 1.7 (0.4-2.0) mmol/L Calcium (8.5-10.1) mg/dl Magnesium (1.8-2.4) mg/dl Total Bilirubin (0.2-1) mg/dl AST (15-37) U/L ALT (12-78) Alkaline Phosphatase (45-117) U/L Troponin I (0-0.045) ng/ml NT-Pro-B Natriuret Pep (0-1800) pg/ml Total Protein (6.4-8.2) gm/dl Albumin (3.4-5.0) gm/dl Globulin (2.5-4.0) gm/dl Albumin/Globulin Ratio (0.9-2) Lipase (73-393) U/L Beta-Hydroxybutyric Acd (0.2-2.81) mg/dl Procalcitonin (0-0.5) ng/ml TSH (0.300-4.500) uIu/ml Urine Color Urine Appearance (Clear) Urine pH (4.5-7.5) Ur Specific [place] (1.000-1.030) Urine Protein (Negative) Urine Glucose (UA) (Negative) Urine Ketones (Negative) Urine Blood (Negative) Urine Nitrite (Negative) Urine Bilirubin (Negative) Urine Urobilinogen (Negative) Ur Leukocyte Esterase (Negative) Urine WBC (Auto) (0-5) /hpf Urine RBC (Auto) (0-4) /hpf U Hyaline Cast (Auto) (0-5) /lpf U Epithel Cells (Auto) (0-5) /lpf Urine Bacteria (Auto) (Negative) Urine Osmolality (500-800) mOsm/kg Nasal Screen MRSA (PCR) (Negative) SARS-CoV-2 (PCR) (Negative) Influenza Type A (PCR) (Neg) Influenza Type B (PCR) (Neg) RSV (RT-PCR) (Neg) 11/08/21 11/08/21 11/08/21 Range/Units 11:23 11:23 11:23 WBC (4.8-10.8) K/uL RBC (4.7-6.1) M/uL Hgb (14.0-18.0) g/dL Hct (42-52) % MCV (80-100) fL MCH (25-34) pg MCHC (32-36) g/dL RDW Std Deviation (36.4-46.3) fL RDW Coeff of Scott (11.5-14.5) % Plt Count (130-400) K/uL MPV (7.4-10.4) fL Immature Gran % (Auto) % Neut % (Auto) % Lymph % (Auto) % [place] % (Auto) % Eos % (Auto) % Baso % (Auto) % Neut # (Auto) (1.4-6.5) K/uL Lymph # (Auto) (1.2-3.4) K/uL [place] # (Auto) (0.11-0.59) K/uL Eos # (Auto) (0-0.5) K/uL Baso # (Auto) (0-0.2) K/uL Immature Gran # (Auto) (0.00-0.02) K/uL PT (9.0-12.0) Seconds INR (0.9-1.1) APTT (21.0-31.0) Seconds PTT Ratio D-Dimer (0-500) ug/L FEU Sodium 129 L (136-145) mmol/L Potassium 4.3 (3.5-5.1) mmol/L Chloride 93 L (98-107) mmol/L Carbon Dioxide 29 (21-32) mmol/L Anion Gap 7.0 (3-11) BUN 23 H (7-18) mg/dl Creatinine 1.32 (0.6-1.4) mg/dl Est Cr Clr Drug Dosing 48.2 ml/min Est GFR ( Amer) 60.3 ml/min Est GFR (Non-Af Amer) 52.0 ml/min BUN/Creatinine Ratio 17.1 (10-20) Glucose 497 H* (70-99) mg/dl POC Glucose (70-99) mg/dl Estimat Average Glucose mg/dl Hemoglobin A1c (4.5-5.6) % Osmolality (280-300) mOsm/kg Lactate (0.4-2.0) mmol/L Calcium 9.4 (8.5-10.1) mg/dl Magnesium 2.2 (1.8-2.4) mg/dl Total Bilirubin 0.8 (0.2-1) mg/dl AST 15 (15-37) U/L ALT 20 (12-78) Alkaline Phosphatase 112 (45-117) U/L Troponin I < 0.015 (0-0.045) ng/ml NT-Pro-B Natriuret Pep 2219 H (0-1800) pg/ml Total Protein 8.5 H (6.4-8.2) gm/dl Albumin 2.9 L (3.4-5.0) gm/dl Globulin 5.6 H (2.5-4.0) gm/dl Albumin/Globulin Ratio 0.5 L (0.9-2) Lipase 214 (73-393) U/L Beta-Hydroxybutyric Acd (0.2-2.81) mg/dl Procalcitonin 0.50 (0-0.5) ng/ml TSH 2.020 (0.300-4.500) uIu/ml Urine Color Urine Appearance (Clear) Urine pH (4.5-7.5) Ur Specific [place] (1.000-1.030) Urine Protein (Negative) Urine Glucose (UA) (Negative) Urine Ketones (Negative) Urine Blood (Negative) Urine Nitrite (Negative) Urine Bilirubin (Negative) Urine Urobilinogen (Negative) Ur Leukocyte Esterase (Negative) Urine WBC (Auto) (0-5) /hpf Urine RBC (Auto) (0-4) /hpf U Hyaline Cast (Auto) (0-5) /lpf U Epithel Cells (Auto) (0-5) /lpf Urine Bacteria (Auto) (Negative) Urine Osmolality (500-800) mOsm/kg Nasal Screen MRSA (PCR) (Negative) SARS-CoV-2 (PCR) NEGATIVE (Negative) Influenza Type A (PCR) Negative (Neg) Influenza Type B (PCR) Negative (Neg) RSV (RT-PCR) Negative (Neg) 11/08/21 Range/Units 11:23 WBC 16.89 H (4.8-10.8) K/uL RBC 4.42 L (4.7-6.1) M/uL Hgb 13.3 L (14.0-18.0) g/dL Hct 39.7 L (42-52) % MCV 89.8 (80-100) fL MCH 30.1 (25-34) pg MCHC 33.5 (32-36) g/dL RDW Std Deviation 42.8 (36.4-46.3) fL RDW Coeff of Scott 13.1 (11.5-14.5) % Plt Count 409 H (130-400) K/uL MPV 10.6 H (7.4-10.4) fL Immature Gran % (Auto) 0.4 % Neut % (Auto) 83.1 % Lymph % (Auto) 8.0 % [place] % (Auto) 8.2 % Eos % (Auto) 0.2 % Baso % (Auto) 0.1 % Neut # (Auto) 14.04 H (1.4-6.5) K/uL Lymph # (Auto) 1.35 (1.2-3.4) K/uL [place] # (Auto) 1.38 H (0.11-0.59) K/uL Eos # (Auto) 0.03 (0-0.5) K/uL Baso # (Auto) 0.02 (0-0.2) K/uL Immature Gran # (Auto) 0.07 H (0.00-0.02) K/uL PT (9.0-12.0) Seconds INR (0.9-1.1) APTT (21.0-31.0) Seconds PTT Ratio D-Dimer (0-500) ug/L FEU Sodium (136-145) mmol/L Potassium (3.5-5.1) mmol/L Chloride (98-107) mmol/L Carbon Dioxide (21-32) mmol/L Anion Gap (3-11) BUN (7-18) mg/dl Creatinine (0.6-1.4) mg/dl Est Cr Clr Drug Dosing ml/min Est GFR ( Amer) ml/min Est GFR (Non-Af Amer) ml/min BUN/Creatinine Ratio (10-20) Glucose (70-99) mg/dl POC Glucose (70-99) mg/dl Estimat Average Glucose mg/dl Hemoglobin A1c (4.5-5.6) % Osmolality (280-300) mOsm/kg Lactate (0.4-2.0) mmol/L Calcium (8.5-10.1) mg/dl Magnesium (1.8-2.4) mg/dl Total Bilirubin (0.2-1) mg/dl AST (15-37) U/L ALT (12-78) Alkaline Phosphatase (45-117) U/L Troponin I (0-0.045) ng/ml NT-Pro-B Natriuret Pep (0-1800) pg/ml Total Protein (6.4-8.2) gm/dl Albumin (3.4-5.0) gm/dl Globulin (2.5-4.0) gm/dl Albumin/Globulin Ratio (0.9-2) Lipase (73-393) U/L Beta-Hydroxybutyric Acd (0.2-2.81) mg/dl Procalcitonin (0-0.5) ng/ml TSH (0.300-4.500) uIu/ml Urine Color Urine Appearance (Clear) Urine pH (4.5-7.5) Ur Specific [place] (1.000-1.030) Urine Protein (Negative) Urine Glucose (UA) (Negative) Urine Ketones (Negative) Urine Blood (Negative) Urine Nitrite (Negative) Urine Bilirubin (Negative) Urine Urobilinogen (Negative) Ur Leukocyte Esterase (Negative) Urine WBC (Auto) (0-5) /hpf Urine RBC (Auto) (0-4) /hpf U Hyaline Cast (Auto) (0-5) /lpf U Epithel Cells (Auto) (0-5) /lpf Urine Bacteria (Auto) (Negative) Urine Osmolality (500-800) mOsm/kg Nasal Screen MRSA (PCR) (Negative) SARS-CoV-2 (PCR) (Negative) Influenza Type A (PCR) (Neg) Influenza Type B (PCR) (Neg) RSV (RT-PCR) (Neg) Medications Administered Current Inpatient Medications Acetaminophen (Acetaminophen 325 Mg Tab) 650 mg PO Q4H PRN PRN Reason: Pain or Fever Stop: 12/08/21 16:13 Aspirin (Aspirin 81 Mg Ectab) 81 mg PO DAILY [facility] Stop: 12/09/21 08:59 Last Admin: 11/09/21 08:55 Dose: 81 mg Documented by: Atorvastatin Calcium (Atorvastatin 40 Mg Tab) 40 mg PO DAILY [facility] Stop: 12/09/21 08:59 Last Admin: 11/09/21 08:55 Dose: 40 mg Documented by: Dextrose (Dextrose 50% 50 Ml Syringe) 25 - 50 ml IV UD PRN; Protocol PRN Reason: Hypoglycemia Protocol Stop: 12/08/21 16:13 Furosemide (Furosemide 40 Mg/4 Ml Vial) 40 mg IV DAILY [facility] Stop: 12/09/21 08:59 Last Admin: 11/09/21 08:56 Dose: 40 mg Documented by: Glucagon (Glucagon For Inj 1 Mg Vial) 1 mg SQ UD PRN; Protocol PRN Reason: Hypoglycemia Protocol Stop: 12/08/21 16:13 Glucose (Glucose 10 Tabs/Tube) 4 - 8 tabs PO UD PRN; Protocol PRN Reason: Hypoglycemia Protocol Stop: 12/08/21 16:13 Glucose (Glucose 40% Gel 15 Gm Tube) 15 - 30 gm PO UD PRN; Protocol PRN Reason: Hypoglycemia Protocol Stop: 12/08/21 16:13 Heparin Sodium/Dextrose (Heparin Sodium/Dextrose) 25,000 units in 500 mls @ 30 mls/hr IV .[id number] [facility]; Protocol Stop: 12/08/21 14:59 Last Admin: 11/09/21 09:21 Dose: 1,500 units/hr, 30 mls/hr Documented by: Piperacillin Sod/Tazobactam (Sod 3.375 gm/ Dextrose) 115 mls @ 28.75 mls/hr IV Q8H [facility]; Protocol Stop: 11/15/21 21:59 Last Infusion: 11/09/21 10:12 Dose: Infused Documented by: Doxycycline Hyclate 100 mg/ (Dextrose) 110 mls @ 50 mls/hr IV Q12H [facility] Stop: 11/16/21 10:59 Insulin Aspart (Insulin Aspart Per Unit) 0 units SC ACHS [facility] Stop: 12/08/21 16:29 Last Admin: 11/09/21 07:53 Dose: 5 units Documented by: Metoprolol Tartrate (Metoprolol Tartrate 25 Mg Tab) 12.5 mg PO Q6H [facility] Stop: 12/08/21 15:59 Last Admin: 11/09/21 09:21 Dose: 12.5 mg Documented by: Miscellaneous (Carbohydrates For Hypoglycemia ) 15 - 30 gm PO UD PRN PRN Reason: Hypoglycemia Protocol Stop: 12/08/21 16:13 Miscellaneous Information (Pharmacy Glycemic Mgmt Consult) 1 ea N/A UD PRN; Protocol PRN Reason: Consult Stop: 12/08/21 16:13 Miscellaneous Information (Piperacill/Tazobac Consult Active) 1 ea N/A UD PRN PRN Reason: Consult Stop: 12/08/21 16:41 Tamsulosin HCl (Tamsulosin Hcl 0.4 Mg Cap) 0.4 mg PO HS [facility] Stop: 12/08/21 20:59 Last Admin: 11/08/21 21:45 Dose: 0.4 mg Documented by:
[2021-11-09] MEDS ORDERED: METOPROLOL TARTRATE 25 MG TAB PO ONE (13:00)
[2021-11-09] MEDS: ADVANCED PROBIOTIC 1250 MG CAPSULE PO SCH (13:20)
[2021-11-09 14:32] LABS: Partial Thromboplastin Ratio 1.6; Partial Thromboplastin Time 42.1 Seconds (21.0-31.0)
--- NOTE | 2021-11-09 14:47 | Pharmacy Report ---
Pharmacy Glycemic Short Note 2 - Date of Service November 09, 2021 - Glycemic Short BSG Results (Last 24 hours): 11/08/21 11/08/21 11/08/21 17:04 18:12 21:32 Glucose POC Glucose 255 H 213 H 105 H 11/08/21 11/09/21 11/09/21 23:13 01:42 06:56 Glucose 161 H POC Glucose 73 120 H 11/09/21 11/09/21 11:39 11:41 Glucose POC Glucose 326 H* 294 H OUTPATIENT ANTIDIABETIC REGIMEN: * NPH 35 units SC HS * Novolin R 5 units SC TIDM * Metformin 1000 mg PO BIDM * HbA1c pending ASSESSMENT: 11/09: * Patient received total of 46 units of insulin yesterday; 25 units basal + 21 units bolus. * Fasting BSG = 161 mg/dl. Continued same basal dose of insulin at HS. * Pre-lunch BSG trended up to 294 mg/dl. Novolog parameters tightened with dinner. 11/08/21 * FA is a 76 year old male presented to ED today with complaints of nausea and worsening shortness of breath x 1 week, subsequently found to be in Afib with RVR. Patient also with LLE cellulitis. * BSG on presentation of 497 mg/dL, treated with 18 units of SC Novolin-R * BSGs trended downward, 213 mg/dL at dinnertime * Will give reduced dose of basal insulin today in light of clear liquid diet PLAN FOR INPATIENT GLYCEMIC CONTROL: * Hold outpatient oral diabetes medications * Basal insulin * Lantus 25 units SC HS * Bolus insulin: tightened CF/CR * NovoLog per scale ACHS or Q6hrs while NPO * Goal Range: Low 110 mg/dL - High 140 mg/dL * Correction Factor: 25 mg/dL/unit * Nutritional / Prandial insulin per carb ratio of 1 unit per 7 grams CHO consumed PLAN FOR DISCHARGE: * tbd
[2021-11-09] MEDS ORDERED: POTASSIUM CHLORIDE CRTAB 20 MEQ TABCR PO SCH (16:00)
[2021-11-09] MEDS ORDERED: PROMETHAZINE HCL 6.25 MG in SODIUM CHLORIDE 0.9% 50 ML IV PRN (17:42)
[2021-11-09] MEDS: TAMSULOSIN HCL 0.4 MG CAP PO SCH (20:52)
[2021-11-09] MEDS: INSULIN GLARGINE SOLOSTAR 100 UNITS/ML 3 ML PEN SC SCH (20:54)
[2021-11-09 21:44] LABS: Partial Thromboplastin Time 51.3 Seconds (21.0-31.0)
[2021-11-10] MEDS: DOXYCYCLINE HYCLATE 100 MG in DEXTROSE 5% 100 ML IV SCH ×3 (00:38→23:21)
[2021-11-10] MEDS: HEPARIN SODIUM/DEXTROSE 25,000 UNITS/500 ML BAG IV SCH ×2 (02:11→18:26)
[2021-11-10] MEDS: PIPERACILLIN/TAZOBACTAM 3.375 GM in DEXTROSE 5% 100 ML IV SCH ×3 (05:43→21:06)
--- NOTE | 2021-11-10 06:58 | Hospitalist Progress Note ---
Date of Service November 10, 2021 Assessment & Plan (1) Atrial fibrillation with rapid ventricular response: Plan: -Admitted to telemetry -Patient presenting from home with reports of worsening shortness of breath x 1 week. -In the ED, found to be in new onset atrial fibrillation with RVR -S/p metoprolol 5 mg IV x 2 with improvement in heart rate on admission, started metoprolol tartrate 12.5 mg p.o. every 6 hours -[id number] - started IV heparin on admission -Echo ordered -EF 60 to 65%. There is mild concentric LVH. LA is moderately dilated. Aortic valve is moderately calcified. Moderate valvular aortic stenosis. -Cardiology consulted, input appreciated -Patient spontaneously converted to sinus rhythm overnight, has frequent PACs, bursts of paroxysmal atrial tachycardia -switched to metoprolol 25 twice daily, continue IV heparin while inpatient, likely discharge on Eliquis, hold amlodipine while titrating metoprolol -Patient will also need to follow-up with cardiology in 2 to 4 weeks, and repeat echo in 6 to 12 months, given moderate -Given clear CXR in the setting of new onset A. fib, D-dimer was checked and found to be elevated. CTA chest negative for PE and BL LE Doppler negative for DVT (2) Volume overload: Plan: -Lower extremity edema noted on exam -S/p Lasix 40 mg IV in the ED, continue Lasix 40 mg IV daily -Hanna placed for strict I's and O's, low Na+ diet, daily weights -? Tachycardia induced heart failure vs other, echo ordered -Tachycardia now resolved, patient responding well to Lasix (3) Cellulitis: Plan: -LLE erythematous and warm to touch. Wound noted on right anterior quintana. -WBC 16 K, tachycardic on admission. Normal lactate and stable BP. -Started IV Zosyn on admission, WBC now elevated above 20,000 - Blood cultures negative in 48 hrs - added doxycycline for possible MRSA coverage -Noted negative MRSA nasal swab -Wound care nurse consult (4) DM type 2 (diabetes mellitus, type 2): Plan: -Hgb A1c 13.2 01/2021, history of noncompliance Current hemoglobin A1c, 11% -Presenting with uncontrolled hyperglycemia, glucose of 497 -No signs of DKA -Received SQ insulin in the ED with improvement in blood sugar -Continue with Lantus and NovoLog per protocol -Glycemic pharmacy consult (5) Abnormal urinalysis: Plan: -UA does not strongly suggest UTI -On IV Zosyn as above -Follow urine culture (6) Hypertension: Plan: -BP currently controlled -will hold amlodipine for now while starting metoprolol (7) DVT prophylaxis: Plan: -On IV heparin Admission and Anticipated Discharge Date Admission Date: November 08, 2021 Subjective Patient seen in follow-up of Avni parra with RVR Converted to sinus rhythm Blood work concerning for leukocytosis, also A1c obtained here at 11% Currently patient is sitting up in chair, eating. Says his appetite is much improved. Continues to have increased shortness of breath, however he is breathing comfortably on room air. Denies fevers, chills, chest pain, abdominal pain, nausea or vomiting. Hanna catheter is placed, draining clear yellow urine. Patient is very hard of hearing. Review of Systems Review of Systems: All systems reviewed & are unremarkable except as noted in Subjective Physical Exam Physical Exam: Constitutional:L elderly male + ill appearing; no acu te distress Eyes: PERRL, EOMI, conju nctivae normal, an icteric sclerae ENMT: external ear and n ose normal, oropha rynx normal Ears: + hearing impairm ent Respiratory: normal respiratory effort, lungs audi ar to auscultation , + decreased mena th sounds Cardiovascular:L irregular, + syst. murmur, + edema ( +1 pitting edema B LE) Gastrointestinal ( Abdomen): normal bowel sound s, soft, nontender Musculoskeletal: extremities motor strength 5/5 Skin: warm and dry, crac braydon skin noted BL E; right anterior quintana wound without significant surro unding erythema, l eft anterior quintana red and warm to to uch, no drainage n oted Neurologic: PERRL, EOMI, no fa ce palsy, no dysar thria, moves extre mities Psychiatric: A+Ox3, euthymic af fect Results & Data Results & Data ([facility]) Vital Signs (Past 12 Hours) Vital Signs Temp Pulse Pulse Resp BP BP Pulse Ox 11/10/21 04:26 37.0 C 76 20 132/74 94 11/10/21 00:29 79 11/09/21 23:35 36.9 C 69 20 99/59 L 93 11/09/21 20:27 36.6 C 68 18 119/71 92 Laboratory Results 11/10/21 11/10/21 11/10/21 Range/Units 11:25 11:25 07:57 WBC (4.8-10.8) K/uL RBC (4.7-6.1) M/uL Hgb (14.0-18.0) g/dL Hct (42-52) % MCV (80-100) fL MCH (25-34) pg MCHC (32-36) g/dL RDW Std Deviation (36.4-46.3) fL RDW Coeff of Scott (11.5-14.5) % Plt Count (130-400) K/uL MPV (7.4-10.4) fL APTT 64.9 H* (21.0-31.0) Seconds PTT Ratio 2.5 Sodium (136-145) mmol/L Potassium (3.5-5.1) mmol/L Chloride (98-107) mmol/L Carbon Dioxide (21-32) mmol/L Anion Gap (3-11) BUN (7-18) mg/dl Creatinine (0.6-1.4) mg/dl Est Cr Clr Drug Dosing ml/min Est GFR ( Amer) ml/min Est GFR (Non-Af Amer) ml/min BUN/Creatinine Ratio (10-20) Glucose (70-99) mg/dl POC Glucose 332 H* 321 H* (70-99) mg/dl Calcium (8.5-10.1) mg/dl Phosphorus (2.5-4.9) mg/dl Magnesium (1.8-2.4) mg/dl 11/10/21 11/10/21 11/10/21 Range/Units 07:57 07:57 07:31 WBC 17.95 H (4.8-10.8) K/uL RBC 4.35 L (4.7-6.1) M/uL Hgb 13.1 L (14.0-18.0) g/dL Hct 39.4 L (42-52) % MCV 90.6 (80-100) fL MCH 30.1 (25-34) pg MCHC 33.2 (32-36) g/dL RDW Std Deviation 43.9 (36.4-46.3) fL RDW Coeff of Scott 13.2 (11.5-14.5) % Plt Count 505 H (130-400) K/uL MPV 10.0 (7.4-10.4) fL APTT (21.0-31.0) Seconds PTT Ratio Sodium 131 L (136-145) mmol/L Potassium 3.2 L (3.5-5.1) mmol/L Chloride 92 L (98-107) mmol/L Carbon Dioxide 34 H (21-32) mmol/L Anion Gap 5.0 (3-11) BUN 18 (7-18) mg/dl Creatinine 1.20 (0.6-1.4) mg/dl Est Cr Clr Drug Dosing 51.3 ml/min Est GFR ( Amer) 67.7 ml/min Est GFR (Non-Af Amer) 58.4 ml/min BUN/Creatinine Ratio 15.2 (10-20) Glucose 273 H (70-99) mg/dl POC Glucose 289 H (70-99) mg/dl Calcium 8.7 (8.5-10.1) mg/dl Phosphorus 2.3 L (2.5-4.9) mg/dl Magnesium 2.0 (1.8-2.4) mg/dl 11/09/21 11/09/21 11/09/21 Range/Units 21:04 20:48 16:37 WBC (4.8-10.8) K/uL RBC (4.7-6.1) M/uL Hgb (14.0-18.0) g/dL Hct (42-52) % MCV (80-100) fL MCH (25-34) pg MCHC (32-36) g/dL RDW Std Deviation (36.4-46.3) fL RDW Coeff of Scott (11.5-14.5) % Plt Count (130-400) K/uL MPV (7.4-10.4) fL APTT 51.3 H* (21.0-31.0) Seconds PTT Ratio 2.0 Sodium (136-145) mmol/L Potassium (3.5-5.1) mmol/L Chloride (98-107) mmol/L Carbon Dioxide (21-32) mmol/L Anion Gap (3-11) BUN (7-18) mg/dl Creatinine (0.6-1.4) mg/dl Est Cr Clr Drug Dosing ml/min Est GFR ( Amer) ml/min Est GFR (Non-Af Amer) ml/min BUN/Creatinine Ratio (10-20) Glucose (70-99) mg/dl POC Glucose 155 H 238 H (70-99) mg/dl Calcium (8.5-10.1) mg/dl Phosphorus (2.5-4.9) mg/dl Magnesium (1.8-2.4) mg/dl 11/09/21 Range/Units 13:57 WBC (4.8-10.8) K/uL RBC (4.7-6.1) M/uL Hgb (14.0-18.0) g/dL Hct (42-52) % MCV (80-100) fL MCH (25-34) pg MCHC (32-36) g/dL RDW Std Deviation (36.4-46.3) fL RDW Coeff of Scott (11.5-14.5) % Plt Count (130-400) K/uL MPV (7.4-10.4) fL APTT 42.1 H (21.0-31.0) Seconds PTT Ratio 1.6 Sodium (136-145) mmol/L Potassium (3.5-5.1) mmol/L Chloride (98-107) mmol/L Carbon Dioxide (21-32) mmol/L Anion Gap (3-11) BUN (7-18) mg/dl Creatinine (0.6-1.4) mg/dl Est Cr Clr Drug Dosing ml/min Est GFR ( Amer) ml/min Est GFR (Non-Af Amer) ml/min BUN/Creatinine Ratio (10-20) Glucose (70-99) mg/dl POC Glucose (70-99) mg/dl Calcium (8.5-10.1) mg/dl Phosphorus (2.5-4.9) mg/dl Magnesium (1.8-2.4) mg/dl Medications Administered Current Inpatient Medications Acetaminophen (Acetaminophen 325 Mg Tab) 650 mg PO Q4H PRN PRN Reason: Pain or Fever Stop: 12/08/21 16:13 Aspirin (Aspirin 81 Mg Ectab) 81 mg PO DAILY [facility] Stop: 12/09/21 08:59 Last Admin: 11/09/21 08:55 Dose: 81 mg Documented by: Atorvastatin Calcium (Atorvastatin 40 Mg Tab) 40 mg PO DAILY [facility] Stop: 12/09/21 08:59 Last Admin: 11/09/21 08:55 Dose: 40 mg Documented by: Dextrose (Dextrose 50% 50 Ml Syringe) 25 - 50 ml IV UD PRN; Protocol PRN Reason: Hypoglycemia Protocol Stop: 12/08/21 16:13 Furosemide (Furosemide 40 Mg/4 Ml Vial) 40 mg IV DAILY [facility] Stop: 12/09/21 08:59 Last Admin: 11/09/21 08:56 Dose: 40 mg Documented by: Glucagon (Glucagon For Inj 1 Mg Vial) 1 mg SQ UD PRN; Protocol PRN Reason: Hypoglycemia Protocol Stop: 12/08/21 16:13 Glucose (Glucose 10 Tabs/Tube) 4 - 8 tabs PO UD PRN; Protocol PRN Reason: Hypoglycemia Protocol Stop: 12/08/21 16:13 Glucose (Glucose 40% Gel 15 Gm Tube) 15 - 30 gm PO UD PRN; Protocol PRN Reason: Hypoglycemia Protocol Stop: 12/08/21 16:13 Heparin Sodium/Dextrose (Heparin Sodium/Dextrose) 25,000 units in 500 mls @ 31 mls/hr IV .Q16H8M [facility]; Protocol Stop: 12/08/21 14:59 Last Admin: 11/10/21 02:11 Dose: 1,550 units/hr, 31 mls/hr Documented by: Piperacillin Sod/Tazobactam (Sod 3.375 gm/ Dextrose) 115 mls @ 28.75 mls/hr IV Q8H [facility]; Protocol Stop: 11/15/21 21:59 Last Admin: 11/10/21 05:43 Dose: 28.8 mls/hr Documented by: Doxycycline Hyclate 100 mg/ (Dextrose) 110 mls @ 50 mls/hr IV Q12H [facility] Stop: 11/16/21 10:59 Last Infusion: 11/10/21 02:50 Dose: Infused Documented by: Promethazine HCl 6.25 mg/ (Sodium Chloride) 50.25 mls @ 201 mls/hr IV Q6H PRN PRN Reason: Nausea And Vomiting Stop: 12/09/21 17:41 Last Infusion: 11/09/21 18:40 Dose: Infused Documented by: Insulin Aspart (Insulin Aspart Per Unit) 0 units SC ACHS [facility] Stop: 12/08/21 16:29 Last Admin: 11/09/21 20:58 Dose: 1 units Documented by: Insulin Glargine (Insulin Glargine Solostar 100 Units/Ml 3 Ml Pen) 25 units SC HS [facility] Stop: 12/09/21 20:59 Last Admin: 11/09/21 20:54 Dose: 25 units Documented by: Lactobacillus Acidoph/Casei/Rhamnos (Advanced Probiotic 1250 Mg Capsule) 2 cap PO DAILY [facility] Stop: 12/09/21 12:59 Last Admin: 11/09/21 13:20 Dose: 2 cap Documented by: Metoprolol Tartrate (Metoprolol Tartrate 25 Mg Tab) 25 mg PO BID [facility] Stop: 12/09/21 20:59 Last Admin: 11/09/21 20:51 Dose: 25 mg Documented by: Miscellaneous (Carbohydrates For Hypoglycemia ) 15 - 30 gm PO UD PRN PRN Reason: Hypoglycemia Protocol Stop: 12/08/21 16:13 Miscellaneous Information (Pharmacy Glycemic Mgmt Consult) 1 ea N/A UD PRN; Protocol PRN Reason: Consult Stop: 12/08/21 16:13 Miscellaneous Information (Piperacill/Tazobac Consult Active) 1 ea N/A UD PRN PRN Reason: Consult Stop: 12/08/21 16:41 Tamsulosin HCl (Tamsulosin Hcl 0.4 Mg Cap) 0.4 mg PO HS [facility] Stop: 12/08/21 20:59 Last Admin: 11/09/21 20:52 Dose: 0.4 mg Documented by:
[2021-11-10 08:07] LABS: Hematocrit (blood only) 39.4 % (42-52); Hemoglobin 13.1 g/dL (14.0-18.0); Mean Corpuscular Hemoglobin 30.1 pg (25-34); Mean Corpuscular Hgb Conc 33.2 g/dL (32-36); Mean Corpuscular Volume 90.6 fL (80-100); Platelet Count 505 K/uL (130-400); RDW Coefficient of Variation 13.2 % (11.5-14.5); RDW Standard Deviation 43.9 fL (36.4-46.3); Red Blood Count 4.35 M/uL (4.7-6.1); White Blood Count 17.95 K/uL (4.8-10.8)
[2021-11-10 08:28] LABS: Partial Thromboplastin Ratio 2.5
[2021-11-10] MEDS: INSULIN ASPART PER UNIT SC SCH ×4 (08:31→20:55)
[2021-11-10 08:32] LABS: Partial Thromboplastin Time 64.9 Seconds (21.0-31.0)
[2021-11-10 08:34] LABS: BUN Creatinine Ratio 15.2 (10-20); Calcium 8.7 mg/dl (8.5-10.1); Creatinine Clr Calc Pharmacy 51.3 ml/min; Est GFR (African American) 67.7 ml/min; Est GFR (Non-African American) 58.4 ml/min; Potassium 3.2 mmol/L (3.5-5.1)
[2021-11-10] MEDS: ATORVASTATIN 40 MG TAB PO SCH (08:34)
[2021-11-10] MEDS: METOPROLOL TARTRATE 25 MG TAB PO SCH ×2 (08:34→20:58)
[2021-11-10] MEDS: ADVANCED PROBIOTIC 1250 MG CAPSULE PO SCH (08:34)
[2021-11-10] MEDS: ASPIRIN 81 MG ECTAB PO SCH (08:34)
[2021-11-10 08:35] LABS: Phosphorus 2.3 mg/dl (2.5-4.9)
[2021-11-10] MEDS ORDERED: POTASSIUM CHLORIDE CRTAB 20 MEQ TABCR PO STA ×2 (08:44→15:34)
[2021-11-10] MEDS ORDERED: INSULIN GLARGINE SOLOSTAR 100 UNITS/ML 3 ML PEN SC SCH (09:00)
--- NOTE | 2021-11-10 13:59 | Cardiology Progress Note ---
Date of Service November 10, 2021 Assessment & Plan (1) Paroxysmal atrial fibrillation: (2) Premature atrial complexes: (3) Moderate aortic stenosis: (4) HTN (hypertension): (5) DM type 2 (diabetes mellitus, type 2): Plan: Newly diagnosed atrial fibrillation with rapid ventricular response. Patient spontaneously converted to sinus rhythm. Short bursts of asymptomatic paroxysmal atrial tachycardia on telemetry. Transition to metoprolol tartrate 25 mg twice daily. Continue intravenous heparin while hospitalized. Transition to Eliquis 5 mg twice daily at time of discharge if cost effective. Echocardiogram demonstrating newly diagnosed moderate aortic valve stenosis. Physical exam consistent with this finding. Repeat 2D transthoracic echocardiogram in 6-12 months. Continue to hold amlodipine. Thank you for allowing to participate in the care of your patient. Outpatient cardiology follow-up in 2-4 weeks. Admission and Anticipated Discharge Date Admission Date: November 08, 2021 Subjective Patient seen and examined at bedside. Hard of hearing. Denies chest pain, shortness of breath, or palpitations. Telemetry demonstrating sinus rhythm with frequent premature atrial complex heart rate generally in the low to mid 80s. Short bursts of paroxysmal atrial tachycardia recorded. No signs/symptoms of GI/ blood loss. Denies orthopnea, or PND. Lower extremity edema and healing excoriation unchanged. Review of Systems Review of Systems: All systems reviewed & are unremarkable except as noted in Subjective Physical Exam Constitutional: well developed and well nourished; no acute distress ENMT: Ears: + hearing impairment Respiratory: normal respiratory effort; no respiratory distress and no retractions Auscultation: no crackles, no rales, no rhonchi and no wheezes Cardiovascular: Rate/Rhythm: + irregularly irregular Heart Sounds: normal S1, normal S2 and + murmur (3/6 mid to late peaking, systolic, medium pitched) Vessels: no JVD and no carotid bruit Extremities: no edema Gastrointestinal (Abdomen): Inspection/Auscultation: abdomen normal to inspection and normal bowel sounds; abdomen not distended Percussion/Palpation: abdomen soft; abdomen nontender, no guarding and abdomen not rigid Neurologic: CN's II-XI intact bilaterally and moves all extremities; no focal motor deficits Motor/Sensory: no tremor Results & Data ([facility]) Vital Signs (Past 12 Hours) Vital Signs Temp Pulse Pulse Resp BP Pulse Ox 11/10/21 12:01 36.9 C 63 18 135/72 95 11/10/21 08:00 36.8 C 60 20 142/63 H 95 11/10/21 07:11 68 11/10/21 04:26 37.0 C 76 20 132/74 94
--- NOTE | 2021-11-10 17:51 | Electrocardiogram Report ---
Test Reason : Blood Pressure : / mmHG Vent. Rate : 081 BPM Atrial Rate : 104 BPM P-R Int : 000 ms QRS Dur : 122 ms QT Int : 402 ms P-R-T Axes : 000 -55 023 degrees QTc Int : 466 ms Sinus rhythm with frequent Premature supraventricular complexes Right bundle branch block Left anterior fascicular block Bifascicular block Moderate voltage criteria for LVH, may be normal variant Cannot rule out Septal infarct (cited on or before 08-NOV-2021) Nonspecific T wave abnormality Abnormal ECG When compared with ECG of 08-NOV-2021 13:14, Sinus rhythm has replaced Atrial fibrillation Nonspecific T wave abnormality now evident in Inferior leads Nonspecific T wave abnormality, worse in Anterior leads Confirmed by Ky Minaya ([id number]) on 11/10/2021 5:50:49 PM Referred By: REFERRED SELF Confirmed By:Ky Minaya
[2021-11-10] MEDS: INSULIN GLARGINE SOLOSTAR 100 UNITS/ML 3 ML PEN SC SCH (20:57)
[2021-11-10] MEDS: TAMSULOSIN HCL 0.4 MG CAP PO SCH (20:58)
[2021-11-11] MEDS: INSULIN ASPART PER UNIT SC SCH ×6 (00:24→20:59)
--- NOTE | 2021-11-11 06:06 | Electrocardiogram Report ---
Test Reason : Blood Pressure : / mmHG Vent. Rate : 081 BPM Atrial Rate : 129 BPM P-R Int : 150 ms QRS Dur : 118 ms QT Int : 440 ms P-R-T Axes : 047 -61 -10 degrees QTc Int : 511 ms Sinus rhythm with frequent Premature atrial complexes Right bundle branch block Left anterior fascicular block Bifascicular block Moderate voltage criteria for LVH, may be normal variant Cannot rule out Septal infarct (cited on or before 08-NOV-2021) Abnormal ECG When compared with ECG of 09-NOV-2021 06:08, Nonspecific T wave abnormality, improved in Anterior leads Confirmed by Ky Minaya ([id number]) on 11/11/2021 6:06:11 AM Referred By: REFERRED SELF Confirmed By:Ky Minaya
[2021-11-11] MEDS: PIPERACILLIN/TAZOBACTAM 3.375 GM in DEXTROSE 5% 100 ML IV SCH (06:07)
[2021-11-11 06:23] LABS: BUN Creatinine Ratio 15.9 (10-20); Calcium 8.2 mg/dl (8.5-10.1); Creatinine Clr Calc Pharmacy 51.7 ml/min; Est GFR (African American) 67.7 ml/min; Est GFR (Non-African American) 58.4 ml/min; Magnesium 1.9 mg/dl (1.8-2.4); Partial Thromboplastin Ratio 2.4; Potassium 3.4 mmol/L (3.5-5.1)
[2021-11-11 06:24] LABS: Phosphorus 2.2 mg/dl (2.5-4.9)
[2021-11-11 06:37] LABS: Partial Thromboplastin Time 63.4 Seconds (21.0-31.0)
[2021-11-11] MEDS: ASPIRIN 81 MG ECTAB PO SCH (08:13)
[2021-11-11] MEDS: ADVANCED PROBIOTIC 1250 MG CAPSULE PO SCH (08:13)
[2021-11-11] MEDS: INSULIN GLARGINE SOLOSTAR 100 UNITS/ML 3 ML PEN SC SCH ×2 (08:13→21:00)
[2021-11-11] MEDS: ATORVASTATIN 40 MG TAB PO SCH (08:14)
[2021-11-11] MEDS: METOPROLOL TARTRATE 25 MG TAB PO SCH ×2 (08:14→21:01)
[2021-11-11] MEDS: FUROSEMIDE 40 MG/4 ML VIAL IV SCH (08:26)
[2021-11-11 08:47] LABS: Hematocrit (blood only) 35.1 % (42-52); Hemoglobin 11.6 g/dL (14.0-18.0); Mean Corpuscular Hemoglobin 29.8 pg (25-34); Mean Corpuscular Volume 90.2 fL (80-100); Mean Platelet Volume 10.4 fL (7.4-10.4); Platelet Count 492 K/uL (130-400); RDW Coefficient of Variation 13.2 % (11.5-14.5); RDW Standard Deviation 43.4 fL (36.4-46.3); Red Blood Count 3.89 M/uL (4.7-6.1); White Blood Count 15.99 K/uL (4.8-10.8)
[2021-11-11] MEDS: HEPARIN SODIUM/DEXTROSE 25,000 UNITS/500 ML BAG IV SCH (09:39)
--- NOTE | 2021-11-11 10:46 | Cardiology Progress Note ---
Date of Service November 11, 2021 Assessment & Plan (1) Paroxysmal atrial fibrillation: (2) Premature atrial complexes: (3) Moderate aortic stenosis: (4) HTN (hypertension): (5) DM type 2 (diabetes mellitus, type 2): (6) Hypokalemia: Plan: Continue metoprolol tartrate 25 mg twice daily. Continue intravenous heparin while hospitalized. Transition to Eliquis 5 mg twice daily at time of discharge if cost effective. Echocardiogram demonstrating newly diagnosed moderate aortic valve stenosis. Repeat 2D transthoracic echocardiogram in 6-12 months. Thank you for allowing to participate in the care of your patient. Outpatient cardiology follow-up in 2-4 weeks. Admission and Anticipated Discharge Date Admission Date: November 08, 2021 Subjective Patient seen examined the bedside. Poor historian due to hearing impairment. Telemetry reveals sinus rhythm with PACs. No recurrent atrial fibrillation. Denies chest pain or shortness of breath. No palpitations, lightheadedness, or dizziness. Hypokalemia and hypophosphatemia noted on a.m. labs. Currently receiving intravenous supplementation. Review of Systems Review of Systems: Other (Unable to complete a full review of systems due to severe hearing impairment.) Physical Exam Constitutional: well developed and well nourished; no acute distress ENMT: Ears: + hearing impairment Respiratory: normal respiratory effort; no respiratory distress and no retractions Auscultation: no crackles, no rales, no rhonchi and no wheezes Cardiovascular: Rate/Rhythm: + irregularly irregular Heart Sounds: normal S1, normal S2 and + murmur (3/6 mid to late peaking, systolic, medium pitched) Vessels: no JVD and no carotid bruit Extremities: no edema Gastrointestinal (Abdomen): Inspection/Auscultation: abdomen normal to inspection and normal bowel sounds; abdomen not distended Percussion/Palpation: abdomen soft; abdomen nontender, no guarding and abdomen not rigid Neurologic: CN's II-XI intact bilaterally and moves all extremities; no focal motor deficits Motor/Sensory: no tremor Results & Data ([facility]) Vital Signs (Past 12 Hours) Vital Signs Temp Pulse Pulse Resp BP Pulse Ox 11/11/21 08:09 36.5 C 69 19 154/88 H 97 11/11/21 03:55 36.8 C 74 20 118/74 94 11/10/21 23:10 37.1 C 63 16 125/61 94 11/10/21 23:00 81
[2021-11-11] MEDS ORDERED: POTASSIUM CHLORIDE CRTAB 20 MEQ TABCR PO STA (11:23)
--- NOTE | 2021-11-11 11:26 | Hospitalist Progress Note ---
Date of Service November 11, 2021 Assessment & Plan (1) Atrial fibrillation with rapid ventricular response: Plan: Acute HFpEF in setting of newly diagnosed Aortic valve stenosis and Afib RVR. -Admitted to telemetry -Patient presenting from home with reports of worsening shortness of breath x 1 week. -In the ED, found to be in new onset atrial fibrillation with RVR -S/p metoprolol 5 mg IV x 2 with improvement in heart rate on admission, started metoprolol tartrate 12.5 mg p.o. every 6 hours -[id number] 4 - started IV heparin on admission -Echo ordered -EF 60 to 65%. There is mild concentric LVH. LA is moderately dilated. Aortic valve is moderately calcified. Moderate valvular aortic stenosis. -Cardiology consulted, input appreciated -Patient spontaneously converted to sinus rhythm overnight, has frequent PACs, bursts of paroxysmal atrial tachycardia -switched to metoprolol 25 twice daily, continue IV heparin while inpatient, likely discharge on Eliquis, hold amlodipine while titrating metoprolol -Eliquis abarca checked, $47 per month -Patient will also need to follow-up with cardiology in 2 to 4 weeks, and repeat echo in 6 to 12 months, given moderate -Given clear CXR in the setting of new onset A. fib, D-dimer was checked and found to be elevated. CTA chest negative for PE and BL LE Doppler negative for DVT (2) Volume overload: Plan: -Lower extremity edema noted on exam -S/p Lasix 40 mg IV in the ED, continue Lasix 40 mg IV daily -Hanna placed for strict I's and O's, low Na+ diet, daily weights -? Tachycardia induced heart failure vs other, echo ordered -Tachycardia now resolved, patient responding well to Lasix (3) Cellulitis: Plan: -LLE erythematous and warm to touch. Wound noted on right anterior quintana. -WBC 16 K, tachycardic on admission. Normal lactate and stable BP. -Started IV Zosyn on admission, WBC now elevated above 20,000 - Blood cultures negative in 48 hrs - follow the final results - added doxycycline for possible MRSA coverage -Noted negative MRSA nasal swab -Wound care nurse consult -WBC is trending down (4) DM type 2 (diabetes mellitus, type 2): Plan: -Hgb A1c 13.2 01/2021, history of noncompliance Current hemoglobin A1c, 11% -Presenting with uncontrolled hyperglycemia, glucose of 497 -No signs of DKA -Received SQ insulin in the ED with improvement in blood sugar -Continue with Lantus and NovoLog per protocol -Glycemic pharmacy consult, diabetes education provided - pt will need close outpt follow up (5) Abnormal urinalysis: Plan: -UA does not strongly suggest UTI -On IV Zosyn as above -urine culture not c/w uti (6) Hypertension: Plan: -BP currently controlled -will hold amlodipine for now while starting metoprolol (7) DVT prophylaxis: Plan: -On IV heparin Admission and Anticipated Discharge Date Admission Date: November 08, 2021 Subjective Patient seen in follow-up of Avni parra with RVR Converted to sinus rhythm Blood work concerning for leukocytosis, also A1c obtained here at 11% Currently patient is laying in bed, in NAD Overall feeling much better Denies fevers, chills, chest pain, abdominal pain, nausea or vomiting. Breathing is improved. Patient is very hard of hearing. Patient's updated at the bedside. She was also updated by habitat biologist, given elevated hemoglobin A1c. Zosyn switched to cefazolin. Review of Systems Review of Systems: All systems reviewed & are unremarkable except as noted in Subjective Physical Exam Physical Exam: Constitutional:L elderly male in no acute distress Eyes: PERRL, EOMI, conju nctivae normal, an icteric sclerae ENMT: external ear and n ose normal, oropha rynx normal Ears: + hearing impairm ent Respiratory: normal respiratory effort, lungs audi ar to auscultation , + decreased mena th sounds Cardiovascular:L irregular, + syst. murmur, + edema ( +1 pitting edema B LE) Gastrointestinal ( Abdomen): normal bowel sound s, soft, nontender Musculoskeletal: extremities motor strength 5/5 Skin: warm and dry, crac braydon skin noted BL E; right anterior quintana wound without significant surro unding erythema, l eft anterior quintana red and warm to to uch, no drainage n oted Neurologic: PERRL, EOMI, no fa ce palsy, no dysar thria, moves extre mities Psychiatric: A+Ox3, euthymic af fect Results & Data Results & Data ([facility]) Vital Signs (Past 12 Hours) Vital Signs Temp Pulse Pulse Resp BP Pulse Ox 11/11/21 08:09 36.5 C 69 19 154/88 H 97 11/11/21 08:00 75 11/11/21 03:55 36.8 C 74 20 118/74 94 Laboratory Results 11/11/21 11/11/21 11/11/21 Range/Units 11:15 07:20 05:42 WBC 15.99 H (4.8-10.8) K/uL RBC 3.89 L (4.7-6.1) M/uL Hgb 11.6 L (14.0-18.0) g/dL Hct 35.1 L (42-52) % MCV 90.2 (80-100) fL MCH 29.8 (25-34) pg MCHC 33.0 (32-36) g/dL RDW Std Deviation 43.4 (36.4-46.3) fL RDW Coeff of Scott 13.2 (11.5-14.5) % Plt Count 492 H (130-400) K/uL MPV 10.4 (7.4-10.4) fL APTT (21.0-31.0) Seconds PTT Ratio Sodium (136-145) mmol/L Potassium (3.5-5.1) mmol/L Chloride (98-107) mmol/L Carbon Dioxide (21-32) mmol/L Anion Gap (3-11) BUN (7-18) mg/dl Creatinine (0.6-1.4) mg/dl Est Cr Clr Drug Dosing ml/min Est GFR ( Amer) ml/min Est GFR (Non-Af Amer) ml/min BUN/Creatinine Ratio (10-20) Glucose (70-99) mg/dl POC Glucose 268 H 173 H (70-99) mg/dl Calcium (8.5-10.1) mg/dl Phosphorus (2.5-4.9) mg/dl Magnesium (1.8-2.4) mg/dl 11/11/21 11/11/21 11/11/21 Range/Units 05:42 05:42 04:27 WBC (4.8-10.8) K/uL RBC (4.7-6.1) M/uL Hgb (14.0-18.0) g/dL Hct (42-52) % MCV (80-100) fL MCH (25-34) pg MCHC (32-36) g/dL RDW Std Deviation (36.4-46.3) fL RDW Coeff of Scott (11.5-14.5) % Plt Count (130-400) K/uL MPV (7.4-10.4) fL APTT 63.4 H* (21.0-31.0) Seconds PTT Ratio 2.4 Sodium 133 L (136-145) mmol/L Potassium 3.4 L (3.5-5.1) mmol/L Chloride 99 (98-107) mmol/L Carbon Dioxide 29 (21-32) mmol/L Anion Gap 5.0 (3-11) BUN 19 H (7-18) mg/dl Creatinine 1.20 (0.6-1.4) mg/dl Est Cr Clr Drug Dosing 51.7 ml/min Est GFR ( Amer) 67.7 ml/min Est GFR (Non-Af Amer) 58.4 ml/min BUN/Creatinine Ratio 15.9 (10-20) Glucose 169 H (70-99) mg/dl POC Glucose 163 H (70-99) mg/dl Calcium 8.2 L (8.5-10.1) mg/dl Phosphorus 2.2 L (2.5-4.9) mg/dl Magnesium 1.9 (1.8-2.4) mg/dl 11/11/21 11/10/21 11/10/21 Range/Units 00:18 20:31 16:23 WBC (4.8-10.8) K/uL RBC (4.7-6.1) M/uL Hgb (14.0-18.0) g/dL Hct (42-52) % MCV (80-100) fL MCH (25-34) pg MCHC (32-36) g/dL RDW Std Deviation (36.4-46.3) fL RDW Coeff of Scott (11.5-14.5) % Plt Count (130-400) K/uL MPV (7.4-10.4) fL APTT (21.0-31.0) Seconds PTT Ratio Sodium (136-145) mmol/L Potassium (3.5-5.1) mmol/L Chloride (98-107) mmol/L Carbon Dioxide (21-32) mmol/L Anion Gap (3-11) BUN (7-18) mg/dl Creatinine (0.6-1.4) mg/dl Est Cr Clr Drug Dosing ml/min Est GFR ( Amer) ml/min Est GFR (Non-Af Amer) ml/min BUN/Creatinine Ratio (10-20) Glucose (70-99) mg/dl POC Glucose 217 H 86 116 H (70-99) mg/dl Calcium (8.5-10.1) mg/dl Phosphorus (2.5-4.9) mg/dl Magnesium (1.8-2.4) mg/dl 11/10/21 11/10/21 Range/Units 11:25 11:25 WBC (4.8-10.8) K/uL RBC (4.7-6.1) M/uL Hgb (14.0-18.0) g/dL Hct (42-52) % MCV (80-100) fL MCH (25-34) pg MCHC (32-36) g/dL RDW Std Deviation (36.4-46.3) fL RDW Coeff of Scott (11.5-14.5) % Plt Count (130-400) K/uL MPV (7.4-10.4) fL APTT (21.0-31.0) Seconds PTT Ratio Sodium (136-145) mmol/L Potassium (3.5-5.1) mmol/L Chloride (98-107) mmol/L Carbon Dioxide (21-32) mmol/L Anion Gap (3-11) BUN (7-18) mg/dl Creatinine (0.6-1.4) mg/dl Est Cr Clr Drug Dosing ml/min Est GFR ( Amer) ml/min Est GFR (Non-Af Amer) ml/min BUN/Creatinine Ratio (10-20) Glucose (70-99) mg/dl POC Glucose 332 H* 321 H* (70-99) mg/dl Calcium (8.5-10.1) mg/dl Phosphorus (2.5-4.9) mg/dl Magnesium (1.8-2.4) mg/dl Medications Administered Current Inpatient Medications Acetaminophen (Acetaminophen 325 Mg Tab) 650 mg PO Q4H PRN PRN Reason: Pain or Fever Stop: 12/08/21 16:13 Aspirin (Aspirin 81 Mg Ectab) 81 mg PO DAILY [facility] Stop: 12/09/21 08:59 Last Admin: 11/11/21 08:13 Dose: 81 mg Documented by: Atorvastatin Calcium (Atorvastatin 40 Mg Tab) 40 mg PO DAILY [facility] Stop: 12/09/21 08:59 Last Admin: 11/11/21 08:14 Dose: 40 mg Documented by: Dextrose (Dextrose 50% 50 Ml Syringe) 25 - 50 ml IV UD PRN; Protocol PRN Reason: Hypoglycemia Protocol Stop: 12/08/21 16:13 Furosemide (Furosemide 40 Mg/4 Ml Vial) 40 mg IV DAILY [facility] Stop: 12/09/21 08:59 Last Admin: 11/11/21 08:26 Dose: 40 mg Documented by: Glucagon (Glucagon For Inj 1 Mg Vial) 1 mg SQ UD PRN; Protocol PRN Reason: Hypoglycemia Protocol Stop: 12/08/21 16:13 Glucose (Glucose 10 Tabs/Tube) 4 - 8 tabs PO UD PRN; Protocol PRN Reason: Hypoglycemia Protocol Stop: 12/08/21 16:13 Glucose (Glucose 40% Gel 15 Gm Tube) 15 - 30 gm PO UD PRN; Protocol PRN Reason: Hypoglycemia Protocol Stop: 12/08/21 16:13 Heparin Sodium/Dextrose (Heparin Sodium/Dextrose) 25,000 units in 500 mls @ 31 mls/hr IV .Q16H8M [facility]; Protocol Stop: 12/08/21 14:59 Last Admin: 11/11/21 09:39 Dose: 1,550 units/hr, 31 mls/hr Documented by: Piperacillin Sod/Tazobactam (Sod 3.375 gm/ Dextrose) 115 mls @ 28.75 mls/hr IV Q8H [facility]; Protocol Stop: 11/15/21 21:59 Last Infusion: 11/11/21 10:38 Dose: Infused Documented by: Doxycycline Hyclate 100 mg/ (Dextrose) 110 mls @ 50 mls/hr IV Q12H [facility] Stop: 11/16/21 10:59 Last Infusion: 11/11/21 01:33 Dose: Infused Documented by: Promethazine HCl 6.25 mg/ (Sodium Chloride) 50.25 mls @ 201 mls/hr IV Q6H PRN PRN Reason: Nausea And Vomiting Stop: 12/09/21 17:41 Last Infusion: 11/09/21 18:40 Dose: Infused Documented by: Insulin Aspart (Insulin Aspart Per Unit) 0 units SC ACHS [facility] Stop: 12/08/21 16:29 Last Admin: 11/11/21 08:24 Dose: 17 units Documented by: Insulin Glargine (Insulin Glargine Solostar 100 Units/Ml 3 Ml Pen) 20 units SC BID [facility] Stop: 12/10/21 08:59 Last Admin: 11/11/21 08:13 Dose: 20 units Documented by: Lactobacillus Acidoph/Casei/Rhamnos (Advanced Probiotic 1250 Mg Capsule) 2 cap PO DAILY [facility] Stop: 12/09/21 12:59 Last Admin: 11/11/21 08:13 Dose: 2 cap Documented by: Metoprolol Tartrate (Metoprolol Tartrate 25 Mg Tab) 25 mg PO BID [facility] Stop: 12/09/21 20:59 Last Admin: 11/11/21 08:14 Dose: 25 mg Documented by: Miscellaneous (Carbohydrates For Hypoglycemia ) 15 - 30 gm PO UD PRN PRN Reason: Hypoglycemia Protocol Stop: 12/08/21 16:13 Miscellaneous Information (Pharmacy Glycemic Mgmt Consult) 1 ea N/A UD PRN; Protocol PRN Reason: Consult Stop: 12/08/21 16:13 Miscellaneous Information (Piperacill/Tazobac Consult Active) 1 ea N/A UD PRN PRN Reason: Consult Stop: 12/08/21 16:41 Potassium Chloride (Potassium Chloride Crtab 20 Meq Tabcr) 40 meq PO NOW STA Stop: 11/11/21 11:24 Tamsulosin HCl (Tamsulosin Hcl 0.4 Mg Cap) 0.4 mg PO HS [facility] Stop: 12/08/21 20:59 Last Admin: 11/10/21 20:58 Dose: 0.4 mg Documented by:
[2021-11-11] MEDS: DOXYCYCLINE HYCLATE 100 MG in DEXTROSE 5% 100 ML IV SCH ×2 (12:03→23:22)
[2021-11-11] MEDS: ceFAZolin 2000MG 2,000 MG/15 ML SYR IV SCH ×2 (15:17→21:01)
[2021-11-11] MEDS: TAMSULOSIN HCL 0.4 MG CAP PO SCH (21:01)
[2021-11-12] MEDS: HEPARIN SODIUM/DEXTROSE 25,000 UNITS/500 ML BAG IV SCH ×2 (01:44→17:19)
[2021-11-12] MEDS: ceFAZolin 2000MG 2,000 MG/15 ML SYR IV SCH ×3 (05:48→21:00)
[2021-11-12 06:40] LABS: Hematocrit (blood only) 35.9 % (42-52); Hemoglobin 11.7 g/dL (14.0-18.0); Mean Corpuscular Hemoglobin 29.5 pg (25-34); Mean Corpuscular Hgb Conc 32.6 g/dL (32-36); Mean Corpuscular Volume 90.7 fL (80-100); Mean Platelet Volume 9.9 fL (7.4-10.4); Platelet Count 521 K/uL (130-400); RDW Coefficient of Variation 13.2 % (11.5-14.5); RDW Standard Deviation 43.7 fL (36.4-46.3); Red Blood Count 3.96 M/uL (4.7-6.1); White Blood Count 13.43 K/uL (4.8-10.8)
[2021-11-12 07:10] LABS: Partial Thromboplastin Ratio 2.2
[2021-11-12 07:27] LABS: Partial Thromboplastin Time 58.8 Seconds (21.0-31.0)
[2021-11-12 07:29] LABS: BUN Creatinine Ratio 14.9 (10-20); Calcium 8.4 mg/dl (8.5-10.1); Creatinine Clr Calc Pharmacy 54.8 ml/min; Est GFR (African American) 71.2 ml/min; Est GFR (Non-African American) 61.5 ml/min; Magnesium 2.1 mg/dl (1.8-2.4); Phosphorus 2.6 mg/dl (2.5-4.9); Potassium 3.7 mmol/L (3.5-5.1)
[2021-11-12] MEDS: INSULIN ASPART PER UNIT SC SCH ×4 (07:59→21:00)
[2021-11-12] MEDS: ATORVASTATIN 40 MG TAB PO SCH (08:00)
[2021-11-12] MEDS: ASPIRIN 81 MG ECTAB PO SCH (08:00)
[2021-11-12] MEDS: ADVANCED PROBIOTIC 1250 MG CAPSULE PO SCH (08:00)
[2021-11-12] MEDS: METOPROLOL TARTRATE 25 MG TAB PO SCH ×2 (08:00→21:00)
[2021-11-12] MEDS: FUROSEMIDE 40 MG/4 ML VIAL IV SCH (08:03)
[2021-11-12] MEDS ORDERED: INSULIN GLARGINE SOLOSTAR 100 UNITS/ML 3 ML PEN SC SCH (09:00)
--- NOTE | 2021-11-12 09:08 | Hospitalist Progress Note ---
Date of Service November 12, 2021 Assessment & Plan (1) Atrial fibrillation with rapid ventricular response: Plan: Acute HFpEF in setting of newly diagnosed Aortic valve stenosis and Afib RVR. -Admitted to telemetry -Patient presenting from home with reports of worsening shortness of breath x 1 week. -In the ED, found to be in new onset atrial fibrillation with RVR -S/p metoprolol 5 mg IV x 2 with improvement in heart rate on admission, started metoprolol tartrate 12.5 mg p.o. every 6 hours -[id number] - started IV heparin on admission -Echo ordered -EF 60 to 65%. There is mild concentric LVH. LA is moderately dilated. Aortic valve is moderately calcified. Moderate valvular aortic stenosis. -Cardiology consulted, input appreciated -Patient spontaneously converted to sinus rhythm overnight, has frequent PACs, bursts of paroxysmal atrial tachycardia -switched to metoprolol 25 twice daily, continue IV heparin while inpatient, likely discharge on Eliquis, hold amlodipine while titrating metoprolol -Eliquis abarca checked, $47 per month -Patient will also need to follow-up with cardiology in 2 to 4 weeks, and repeat echo in 6 to 12 months, given moderate -Given clear CXR in the setting of new onset A. fib, D-dimer was checked and found to be elevated. CTA chest negative for PE and BL LE Doppler negative for DVT (2) Volume overload: Plan: -Lower extremity edema noted on exam -S/p Lasix 40 mg IV in the ED, continue Lasix 40 mg IV daily -Hanna placed for strict I's and O's, low Na+ diet, daily weights -? Tachycardia induced heart failure vs other, echo ordered -Tachycardia now resolved, patient responding well to Lasix (3) Cellulitis: Plan: -LLE erythematous and warm to touch. Wound noted on right anterior quintana. -WBC 16 K, tachycardic on admission. Normal lactate and stable BP. -Started IV Zosyn on admission, WBC now elevated above 20,000 - Blood cultures negative in 48 hrs - follow the final results - added doxycycline for possible MRSA coverage -Noted negative MRSA nasal swab -Wound care nurse consult -WBC is trending down, zosyn switched to cefazolin, plan to switch to PO Abx (4) DM type 2 (diabetes mellitus, type 2): Plan: -Hgb A1c 13.2 01/2021, history of noncompliance Current hemoglobin A1c, 11% -Presenting with uncontrolled hyperglycemia, glucose of 497 -No signs of DKA -Received SQ insulin in the ED with improvement in blood sugar -Continue with Lantus and NovoLog per protocol -Glycemic pharmacy consult, diabetes education provided - pt will need close outpt follow up (5) Abnormal urinalysis: Plan: -UA does not strongly suggest UTI -On IV Zosyn as above -urine culture not c/w uti (6) Hypertension: Plan: -BP currently controlled -will hold amlodipine for now while starting metoprolol (7) DVT prophylaxis: Plan: -On IV heparin Admission and Anticipated Discharge Date Admission Date: November 08, 2021 Subjective Patient seen in follow-up of Avni parra with RVR Converted to sinus rhythm Blood work concerning for leukocytosis likely secondary to LE cellulitis, also A1c obtained here elevated at 11% Currently patient is laying in bed, in NAD Overall feeling much better Denies fevers, chills, chest pain, abdominal pain, nausea or vomiting. Breathing is improved. Patient is very hard of hearing. Patient's updated at the bedside yesterday. She was also updated by conservation educator, given elevated hemoglobin A1c. Review of Systems Review of Systems: All systems reviewed & are unremarkable except as noted in Subjective Physical Exam Physical Exam: Constitutional:L elderly male in no acute distress Eyes: PERRL, EOMI, conju nctivae normal, an icteric sclerae ENMT: external ear and n ose normal, oropha rynx normal Ears: + hearing impairm ent Respiratory: normal respiratory effort, lungs audi ar to auscultation , + decreased mena th sounds Cardiovascular:L irregular, + syst. murmur, + edema ( +1 pitting edema B LE) Gastrointestinal ( Abdomen): normal bowel sound s, soft, nontender Musculoskeletal: extremities motor strength 5/5 Skin: warm and dry, crac braydon skin noted BL E; right anterior quintana wound without significant surro unding erythema, l eft anterior quintana red and warm to to uch, no drainage n oted (improving) Neurologic: PERRL, EOMI, no fa ce palsy, no dysar thria, moves extre mities Psychiatric: A+Ox3, euthymic af fect Results & Data Results & Data ([facility]) Vital Signs (Past 12 Hours) Vital Signs Temp Pulse Pulse Resp BP Pulse Ox 11/12/21 08:59 75 11/12/21 08:12 36.5 C 97 H 20 120/63 98 11/12/21 03:39 36.5 C 52 L 18 119/72 96 11/11/21 23:56 36.4 C L 78 16 110/67 95 Laboratory Results 11/12/21 11/12/21 11/12/21 Range/Units 07:19 05:55 05:55 WBC 13.43 H (4.8-10.8) K/uL RBC 3.96 L (4.7-6.1) M/uL Hgb 11.7 L (14.0-18.0) g/dL Hct 35.9 L (42-52) % MCV 90.7 (80-100) fL MCH 29.5 (25-34) pg MCHC 32.6 (32-36) g/dL RDW Std Deviation 43.7 (36.4-46.3) fL RDW Coeff of Scott 13.2 (11.5-14.5) % Plt Count 521 H (130-400) K/uL MPV 9.9 (7.4-10.4) fL APTT 58.8 H* (21.0-31.0) Seconds PTT Ratio 2.2 Sodium (136-145) mmol/L Potassium (3.5-5.1) mmol/L Chloride (98-107) mmol/L Carbon Dioxide (21-32) mmol/L Anion Gap (3-11) BUN (7-18) mg/dl Creatinine (0.6-1.4) mg/dl Est Cr Clr Drug Dosing ml/min Est GFR ( Amer) ml/min Est GFR (Non-Af Amer) ml/min BUN/Creatinine Ratio (10-20) Glucose (70-99) mg/dl POC Glucose 226 H (70-99) mg/dl Calcium (8.5-10.1) mg/dl Phosphorus (2.5-4.9) mg/dl Magnesium (1.8-2.4) mg/dl 11/12/21 11/11/21 11/11/21 Range/Units 05:55 20:05 16:23 WBC (4.8-10.8) K/uL RBC (4.7-6.1) M/uL Hgb (14.0-18.0) g/dL Hct (42-52) % MCV (80-100) fL MCH (25-34) pg MCHC (32-36) g/dL RDW Std Deviation (36.4-46.3) fL RDW Coeff of Scott (11.5-14.5) % Plt Count (130-400) K/uL MPV (7.4-10.4) fL APTT (21.0-31.0) Seconds PTT Ratio Sodium 132 L (136-145) mmol/L Potassium 3.7 (3.5-5.1) mmol/L Chloride 99 (98-107) mmol/L Carbon Dioxide 27 (21-32) mmol/L Anion Gap 6.0 (3-11) BUN 17 (7-18) mg/dl Creatinine 1.15 (0.6-1.4) mg/dl Est Cr Clr Drug Dosing 54.8 ml/min Est GFR ( Amer) 71.2 ml/min Est GFR (Non-Af Amer) 61.5 ml/min BUN/Creatinine Ratio 14.9 (10-20) Glucose 203 H (70-99) mg/dl POC Glucose 172 H 177 H (70-99) mg/dl Calcium 8.4 L (8.5-10.1) mg/dl Phosphorus 2.6 (2.5-4.9) mg/dl Magnesium 2.1 (1.8-2.4) mg/dl 11/11/21 Range/Units 11:15 WBC (4.8-10.8) K/uL RBC (4.7-6.1) M/uL Hgb (14.0-18.0) g/dL Hct (42-52) % MCV (80-100) fL MCH (25-34) pg MCHC (32-36) g/dL RDW Std Deviation (36.4-46.3) fL RDW Coeff of Scott (11.5-14.5) % Plt Count (130-400) K/uL MPV (7.4-10.4) fL APTT (21.0-31.0) Seconds PTT Ratio Sodium (136-145) mmol/L Potassium (3.5-5.1) mmol/L Chloride (98-107) mmol/L Carbon Dioxide (21-32) mmol/L Anion Gap (3-11) BUN (7-18) mg/dl Creatinine (0.6-1.4) mg/dl Est Cr Clr Drug Dosing ml/min Est GFR ( Amer) ml/min Est GFR (Non-Af Amer) ml/min BUN/Creatinine Ratio (10-20) Glucose (70-99) mg/dl POC Glucose 268 H (70-99) mg/dl Calcium (8.5-10.1) mg/dl Phosphorus (2.5-4.9) mg/dl Magnesium (1.8-2.4) mg/dl Medications Administered Current Inpatient Medications Acetaminophen (Acetaminophen 325 Mg Tab) 650 mg PO Q4H PRN PRN Reason: Pain or Fever Stop: 12/08/21 16:13 Aspirin (Aspirin 81 Mg Ectab) 81 mg PO DAILY D[facility] Stop: 12/09/21 08:59 Last Admin: 11/12/21 08:00 Dose: 81 mg Documented by: Atorvastatin Calcium (Atorvastatin 40 Mg Tab) 40 mg PO DAILY [facility] Stop: 12/09/21 08:59 Last Admin: 11/12/21 08:00 Dose: 40 mg Documented by: Dextrose (Dextrose 50% 50 Ml Syringe) 25 - 50 ml IV UD PRN; Protocol PRN Reason: Hypoglycemia Protocol Stop: 12/08/21 16:13 Furosemide (Furosemide 40 Mg/4 Ml Vial) 40 mg IV DAILY DARIN Stop: 12/09/21 08:59 Last Admin: 11/12/21 08:03 Dose: 40 mg Documented by: Glucagon (Glucagon For Inj 1 Mg Vial) 1 mg SQ UD PRN; Protocol PRN Reason: Hypoglycemia Protocol Stop: 12/08/21 16:13 Glucose (Glucose 10 Tabs/Tube) 4 - 8 tabs PO UD PRN; Protocol PRN Reason: Hypoglycemia Protocol Stop: 12/08/21 16:13 Glucose (Glucose 40% Gel 15 Gm Tube) 15 - 30 gm PO UD PRN; Protocol PRN Reason: Hypoglycemia Protocol Stop: 12/08/21 16:13 Heparin Sodium/Dextrose (Heparin Sodium/Dextrose) 25,000 units in 500 mls @ 31 mls/hr IV .Q16H8M [facility]; Protocol Stop: 12/08/21 14:59 Last Titration: 11/12/21 07:31 Dose: 1,550 units/hr, 31 mls/hr Documented by: Doxycycline Hyclate 100 mg/ (Dextrose) 110 mls @ 50 mls/hr IV Q12H [facility] Stop: 11/16/21 10:59 Last Infusion: 11/12/21 01:34 Dose: Infused Documented by: Promethazine HCl 6.25 mg/ (Sodium Chloride) 50.25 mls @ 201 mls/hr IV Q6H PRN PRN Reason: Nausea And Vomiting Stop: 12/09/21 17:41 Last Infusion: 11/09/21 18:40 Dose: Infused Documented by: Cefazolin Sodium (Ancef 2000mg) 2,000 mg in 15 mls @ 3.75 mls/min IV Q8H [facility]; Protocol Stop: 11/18/21 13:59 Last Admin: 11/12/21 05:48 Dose: 3.75 mls/min Documented by: Insulin Aspart (Insulin Aspart Per Unit) 0 units SC DAILY@0730 [facility] Stop: 12/08/21 16:29 Last Admin: 11/12/21 07:59 Dose: 20 units Documented by: Insulin Aspart (Insulin Aspart Per Unit) 0 units SC 1130,1630,2100 [facility] Stop: 12/12/21 11:29 Insulin Glargine (Insulin Glargine Solostar 100 Units/Ml 3 Ml Pen) 25 units SC BID [facility] Stop: 12/10/21 08:59 Last Admin: 11/12/21 08:00 Dose: 25 units Documented by: Lactobacillus Acidoph/Casei/Rhamnos (Advanced Probiotic 1250 Mg Capsule) 2 cap PO DAILY [facility] Stop: 12/09/21 12:59 Last Admin: 11/12/21 08:00 Dose: 2 cap Documented by: Metoprolol Tartrate (Metoprolol Tartrate 25 Mg Tab) 25 mg PO BID [facility] Stop: 12/09/21 20:59 Last Admin: 11/12/21 08:00 Dose: 25 mg Documented by: Miscellaneous (Carbohydrates For Hypoglycemia ) 15 - 30 gm PO UD PRN PRN Reason: Hypoglycemia Protocol Stop: 12/08/21 16:13 Miscellaneous Information (Pharmacy Glycemic Mgmt Consult) 1 ea N/A UD PRN; Protocol PRN Reason: Consult Stop: 02/06/22 16:13 Tamsulosin HCl (Tamsulosin Hcl 0.4 Mg Cap) 0.4 mg PO [facility] Stop: 12/08/21 20:59 Last Admin: 11/11/21 21:01 Dose: 0.4 mg Documented by:
--- NOTE | 2021-11-12 09:43 | Pharmacy Report ---
Pharmacy Glycemic Short Note 2 - Date of Service November 12, 2021 - Glycemic Short BSG Results (Last 24 hours): 11/11/21 11/11/21 11/11/21 11:15 16:23 20:05 Glucose POC Glucose 268 H 177 H 172 H 11/12/21 11/12/21 05:55 07:19 Glucose 203 H POC Glucose 226 H OUTPATIENT ANTIDIABETIC REGIMEN: * NPH 35 units SC HS * Novolin R 5 units SC TIDM * Metformin 1000 mg PO BIDM * HbA1c: 11% (11/09/21) ASSESSMENT: 11/11: * BSGs yesterday of 173, 268, 177, and 172 mg/dL * Received 91 units of insulin (40 units of basal and 51 units of prandial/correctional) * Fasting BSG of 226 mg/dL this morning - will increase basal insulin today * Given high at lunch yesterday, will tighten AM Novolog 11/09: * Patient received total of 46 units of insulin yesterday; 25 units basal + 21 units bolus. * Fasting BSG = 161 mg/dl. Continued same basal dose of insulin at HS. * Pre-lunch BSG trended up to 294 mg/dl. Novolog parameters tightened with dinner. 11/08/21 * FA is a 76 year old male presented to ED today with complaints of nausea and worsening shortness of breath x 1 week, subsequently found to be in Afib with RVR. Patient also with LLE cellulitis. * BSG on presentation of 497 mg/dL, treated with 18 units of SC Novolin-R * BSGs trended downward, 213 mg/dL at dinnertime * Will give reduced dose of basal insulin today in light of clear liquid diet PLAN FOR INPATIENT GLYCEMIC CONTROL: * Hold outpatient oral diabetes medications * Basal insulin * Lantus 20-25 units SC BID (see EHR for details) * Bolus insulin: tightened CF/CR * NovoLog per scale ACHS or Q6hrs while NPO * Goal Range: Low 110 mg/dL - High 140 mg/dL * Correction Factor: 15 mg/dL/unit with breakfast, 25 mg/dL/unit with lunch, dinner, HS * Nutritional / Prandial insulin per carb ratio of 1 unit per 5 grams CHO consumed w/ breakfast, 1 unit per 7 grams CHO consumed w/ lunch, dinner, HS PLAN FOR DISCHARGE: * HbA1c of 11% suggests poor outpatient glycemic control * Current regimen is not providing adequate basal insulin as he is only receiving NPH once daily * Patient uses Novolin R and NPH as an outpatient due to cost considerations * Agree with note from patient educator that patient would likely benefit from pre-mixed 70/30 insulin SC BIDM * Will continue to follow inpatient insulin needs to guide dosing of 70/30 insulin * Discontinue current outpatient NPH and regular insulin orders * SMBG pre-breakfast, pre-dinner, and HS * eGFR > 60 - reasonable to continue metformin at discharge * Patient will need prompt outpatient follow-up to guide further insulin dosing
--- NOTE | 2021-11-12 10:11 | Cardiology Progress Note ---
Date of Service November 12, 2021 Assessment & Plan (1) Paroxysmal atrial fibrillation: (2) Premature atrial complexes: (3) Moderate aortic stenosis: (4) HTN (hypertension): (5) DM type 2 (diabetes mellitus, type 2): (6) Hypokalemia: (7) Cellulitis: Plan: Continue metoprolol tartrate 25 mg twice daily. Continue intravenous heparin while hospitalized. Transition to Eliquis 5 mg twice daily at time of discharge if cost effective. Echocardiogram demonstrating newly diagnosed moderate aortic valve stenosis. Repeat 2D transthoracic echocardiogram in 6-12 months. Treatment of cellulitis as per internal medicine. Supplement electrolytes as indicated. Thank you for allowing to participate in the care of your patient. Outpatient cardiology follow-up in 2-4 weeks. Admission and Anticipated Discharge Date Admission Date: November 08, 2021 Subjective Patient seen and examined at the bedside. Denies chest pain or shortness of breath. Limited historian due to severe hearing impairment. Left lower extremity cellulitis improving. Telemetry reviewed sinus rhythm with frequent premature atrial complexes. Heart rate ranging 80-90 bpm. Review of Systems Review of Systems: All systems reviewed & are unremarkable except as noted in Subjective Physical Exam Constitutional: well developed and well nourished; no acute distress ENMT: Ears: + hearing impairment Respiratory: normal respiratory effort; no respiratory distress and no retractions Auscultation: no crackles, no rales, no rhonchi and no wheezes Cardiovascular: Rate/Rhythm: + irregularly irregular Heart Sounds: normal S1, normal S2 and + murmur (3/6 mid to late peaking, systolic, medium pitched) Vessels: no JVD and no carotid bruit Extremities: + edema (Left lower extr emity edema with erythema) Gastrointestinal (Abdomen): Inspection/Auscultation: abdomen normal to inspection and normal bowel sounds; abdomen not distended Percussion/Palpation: abdomen soft; abdomen nontender, no guarding and abdomen not rigid Neurologic: CN's II-XI intact bilaterally and moves all extremities; no focal motor deficits Motor/Sensory: no tremor Results & Data ([facility]) Vital Signs (Past 12 Hours) Vital Signs Temp Pulse Pulse Resp BP Pulse Ox 11/12/21 08:59 75 11/12/21 08:12 36.5 C 97 H 20 120/63 98 11/12/21 03:39 36.5 C 52 L 18 119/72 96 11/11/21 23:56 36.4 C L 78 16 110/67 95
[2021-11-12] MEDS: DOXYCYCLINE HYCLATE 100 MG in DEXTROSE 5% 100 ML IV SCH ×2 (11:16→22:39)
[2021-11-12] MEDS: INSULIN GLARGINE SOLOSTAR 100 UNITS/ML 3 ML PEN SC SCH (20:59)
[2021-11-12] MEDS: TAMSULOSIN HCL 0.4 MG CAP PO SCH (21:00)
[2021-11-13] MEDS: ceFAZolin 2000MG 2,000 MG/15 ML SYR IV SCH ×3 (05:38→21:41)
[2021-11-13 05:47] LABS: Hemoglobin 12.5 g/dL (14.0-18.0); Mean Corpuscular Hemoglobin 29.9 pg (25-34); Mean Corpuscular Hgb Conc 33.8 g/dL (32-36); Mean Corpuscular Volume 88.5 fL (80-100); Mean Platelet Volume 9.8 fL (7.4-10.4); Platelet Count 517 K/uL (130-400); RDW Coefficient of Variation 13.1 % (11.5-14.5); RDW Standard Deviation 42.1 fL (36.4-46.3); Red Blood Count 4.18 M/uL (4.7-6.1); White Blood Count 13.04 K/uL (4.8-10.8)
[2021-11-13 06:06] LABS: BUN Creatinine Ratio 18.9 (10-20); Calcium 8.6 mg/dl (8.5-10.1); Creatinine Clr Calc Pharmacy 59.5 ml/min; Est GFR (African American) 78.6 ml/min; Est GFR (Non-African American) 67.8 ml/min; Magnesium 1.9 mg/dl (1.7-2.4); Phosphorus 3.8 mg/dl (2.5-4.9)
[2021-11-13 06:11] LABS: Partial Thromboplastin Ratio 2.1
[2021-11-13 06:15] LABS: Partial Thromboplastin Time 55.3 Seconds (21.0-31.0)
[2021-11-13] MEDS: INSULIN ASPART PER UNIT SC SCH ×4 (07:39→21:45)
[2021-11-13] MEDS: ASPIRIN 81 MG ECTAB PO SCH (07:40)
[2021-11-13] MEDS: INSULIN GLARGINE SOLOSTAR 100 UNITS/ML 3 ML PEN SC SCH ×2 (07:40→21:40)
[2021-11-13] MEDS: METOPROLOL TARTRATE 25 MG TAB PO SCH ×2 (07:40→21:41)
[2021-11-13] MEDS: ADVANCED PROBIOTIC 1250 MG CAPSULE PO SCH (07:40)
[2021-11-13] MEDS: ATORVASTATIN 40 MG TAB PO SCH (07:40)
[2021-11-13] MEDS: FUROSEMIDE 40 MG/4 ML VIAL IV SCH (07:46)
[2021-11-13] MEDS ORDERED: INSULIN GLARGINE SOLOSTAR 100 UNITS/ML 3 ML PEN SC SCH (09:00)
--- NOTE | 2021-11-13 09:06 | Pharmacy Report ---
Pharmacy Glycemic Short Note 2 - Date of Service November 13, 2021 - Glycemic Short BSG Results (Last 24 hours): 11/12/21 11/12/21 11/12/21 11:24 16:26 20:12 Glucose POC Glucose 287 H 104 H 146 H 11/13/21 11/13/21 05:19 07:16 Glucose 157 H POC Glucose 228 H OUTPATIENT ANTIDIABETIC REGIMEN: * NPH 35 units SC HS * Novolin R 5 units SC TIDM * Metformin 1000 mg PO BIDM * HbA1c: 11% (11/09/21) ASSESSMENT: 11/12: * BSGs yesterday of 226, 287, 104, and 146 mg/dL * Received 92 units of insulin (50 of which was basal) * Continues on heparin infusion (contains dextrose) * Will plan to continue use scaled Lantus dose this evening to provide equivalent/increased dose compared to yesterday 11/11: * BSGs yesterday of 173, 268, 177, and 172 mg/dL * Received 91 units of insulin (40 units of basal and 51 units of prandial/correctional) * Fasting BSG of 226 mg/dL this morning - will increase basal insulin today * Given high at lunch yesterday, will tighten AM Novolog 11/08/21 * FA is a 76 year old male presented to ED today with complaints of nausea and worsening shortness of breath x 1 week, subsequently found to be in Afib with RVR. Patient also with LLE cellulitis. * BSG on presentation of 497 mg/dL, treated with 18 units of SC Novolin-R * BSGs trended downward, 213 mg/dL at dinnertime * Will give reduced dose of basal insulin today in light of clear liquid diet PLAN FOR INPATIENT GLYCEMIC CONTROL: * Hold outpatient oral diabetes medications * Basal insulin * Lantus 25-30 units SC BID (see EHR for details) * Bolus insulin: tightened CF/CR * NovoLog per scale ACHS or Q6hrs while NPO * Goal Range: Low 110 mg/dL - High 140 mg/dL * Correction Factor: 15 mg/dL/unit with breakfast, 25 mg/dL/unit with lunch, dinner, HS * Nutritional / Prandial insulin per carb ratio of 1 unit per 5 grams CHO consumed w/ breakfast, 1 unit per 7 grams CHO consumed w/ lunch, dinner, HS PLAN FOR DISCHARGE: * HbA1c of 11% suggests poor outpatient glycemic control * Current regimen is not providing adequate basal insulin as he is only receiving NPH once daily * Patient uses Novolin R and NPH as an outpatient due to cost considerations * Agree with note from consumer educator that patient would likely benefit from pre-mixed 70/30 insulin SC BIDM * At this point, pre-mixed 70/30 insulin 45 units SC with breakfast and 25 units SC with dinner is reasonable (prioritizing safety) * Discontinue current outpatient NPH and regular insulin orders * SMBG pre-breakfast, pre-dinner, and HS * eGFR > 60 - reasonable to continue metformin at discharge * Patient will need prompt outpatient follow-up to guide further insulin dosing
[2021-11-13] MEDS: HEPARIN SODIUM/DEXTROSE 25,000 UNITS/500 ML BAG IV SCH (09:33)
--- NOTE | 2021-11-13 10:45 | Cardiology Progress Note ---
Date of Service November 13, 2021 Assessment & Plan (1) Paroxysmal atrial fibrillation: (2) Premature atrial complexes: (3) Moderate aortic stenosis: (4) HTN (hypertension): (5) DM type 2 (diabetes mellitus, type 2): (6) Hypokalemia: (7) Cellulitis: Plan: Telemetry reviewed demonstrating irregular supraventricular rhythm. Difficulty discerning P wave activity. Will reassess twelve-lead ECG. Continue metoprolol tartrate 25 mg twice daily. Continue intravenous heparin while hospitalized. Transition to Eliquis 5 mg twice daily at time of discharge if cost effective. Echocardiogram demonstrating newly diagnosed moderate aortic valve stenosis. Repeat 2D transthoracic echocardiogram in 6-12 months. Treatment of cellulitis as per internal medicine. Supplement electrolytes as indicated. Outpatient cardiology follow-up in 2-4 weeks. Admission and Anticipated Discharge Date Admission Date: November 08, 2021 Subjective Patient seen and examined at the bedside. Left lower extremity cellulitis improving. Denies chest pain or palpitations. Poor historian due to severe hearing impairment. Communication via writing on tablet today. Review of Systems Review of Systems: All systems reviewed & are unremarkable except as noted in Subjective Physical Exam Constitutional: well developed and well nourished; no acute distress ENMT: Ears: + hearing impairment Respiratory: normal respiratory effort; no respiratory distress and no retractions Auscultation: no crackles, no rales, no rhonchi and no wheezes Cardiovascular: Rate/Rhythm: + irregularly irregular Heart Sounds: normal S1, normal S2 and + murmur (3/6 mid to late peaking, systolic, medium pitched) Vessels: no JVD and no carotid bruit Extremities: + edema (Left lower ex tremity edema with erythema) Gastrointestinal (Abdomen): Inspection/Auscultation: abdomen normal to inspection and normal bowel sounds; abdomen not distended Percussion/Palpation: abdomen soft; abdomen nontender, no guarding and abdomen not rigid Neurologic: CN's II-XI intact bilaterally and moves all extremities; no focal motor deficits Motor/Sensory: no tremor Results & Data ([facility]) Vital Signs (Past 12 Hours) Vital Signs Temp Pulse Pulse Resp BP Pulse Ox 11/13/21 08:00 60 11/13/21 07:55 36.9 C 83 18 128/61 96 11/13/21 02:56 36.8 C 72 18 133/84 95 11/12/21 23:09 36.8 C 72 18 138/82 92 11/12/21 23:00 69
[2021-11-13] MEDS: DOXYCYCLINE HYCLATE 100 MG in DEXTROSE 5% 100 ML IV SCH ×2 (11:05→22:33)
--- NOTE | 2021-11-13 12:14 | Electrocardiogram Report ---
Test Reason : Blood Pressure : / mmHG Vent. Rate : 058 BPM Atrial Rate : 058 BPM P-R Int : 156 ms QRS Dur : 132 ms QT Int : 438 ms P-R-T Axes : 052 -64 -39 degrees QTc Int : 429 ms Sinus bradycardia with Premature atrial complexes Right bundle branch block Left anterior fascicular block Moderate voltage criteria for LVH, may be normal variant Possible Old Septal infarct (cited on or before 08-NOV-2021) Abnormal ECG When compared with ECG of 10-NOV-2021 04:59, No significant change Confirmed by Sujit Perez ([id number]) on 11/13/2021 12:13:56 PM Referred By: REFERRED SELF Confirmed By:Sujit Perez
[2021-11-13] MEDS: TAMSULOSIN HCL 0.4 MG CAP PO SCH (21:41)
--- NOTE | 2021-11-13 23:42 | Hospitalist Progress Note ---
Date of Service November 13, 2021 Assessment & Plan (1) Atrial fibrillation with rapid ventricular response: Plan: Acute HFpEF in setting of newly diagnosed Aortic valve stenosis and Afib RVR. -Admitted to telemetry -Patient presenting from home with reports of worsening shortness of breath x 1 week. -In the ED, found to be in new onset atrial fibrillation with RVR -S/p metoprolol 5 mg IV x 2 with improvement in heart rate on admission, started metoprolol tartrate 12.5 mg p.o. every 6 hours -[id number] - started IV heparin on admission -Echo ordered -EF 60 to 65%. There is mild concentric LVH. LA is moderately dilated. Aortic valve is moderately calcified. Moderate valvular aortic stenosis. -Cardiology consulted, input appreciated -Patient spontaneously converted to sinus rhythm overnight, has frequent PACs, bursts of paroxysmal atrial tachycardia -switched to metoprolol 25 twice daily, continue IV heparin while inpatient, likely discharge on Eliquis, hold amlodipine while titrating metoprolol -Eliquis abarca checked, $47 per month -Patient will also need to follow-up with cardiology in 2 to 4 weeks, and repeat echo in 6 to 12 months, given moderate 11/13/21 Cardiology on board Continue metoprolol 25 mg BID rate control with metoprolol Continue heparin drip for now, will transition to Eliquis (2) Volume overload: Plan: -Lower extremity edema noted on exam -S/p Lasix 40 mg IV in the ED, continue Lasix 40 mg IV daily -Hanna placed for strict I's and O's, low Na+ diet, daily weights -? Tachycardia induced heart failure vs other, echo ordered -Tachycardia now resolved, patient responding well to Lasix - Will transition to PO lasix on discharge (3) Cellulitis: Plan: -LLE erythematous and warm to touch. Wound noted on right anterior quintana. -WBC 16 K, tachycardic on admission. Normal lactate and stable BP. -Started IV Zosyn on admission, WBC now elevated above 20,000 - Blood cultures negative in 48 hrs - follow the final results - added doxycycline for possible MRSA coverage -Noted negative MRSA nasal swab -Wound care nurse consult -WBC is trending down, zosyn switched to cefazolin, plan to switch to PO Abx (4) DM type 2 (diabetes mellitus, type 2): Plan: -Hgb A1c 13.2 01/2021, history of noncompliance Current hemoglobin A1c, 11% -Presenting with uncontrolled hyperglycemia, glucose of 497 -No signs of DKA -Received SQ insulin in the ED with improvement in blood sugar -Continue with Lantus and NovoLog per protocol -Glycemic pharmacy consult, diabetes education provided - pt will need close outpt follow up (5) Abnormal urinalysis: Plan: -UA does not strongly suggest UTI -On IV Zosyn as above -urine culture not c/w uti (6) Hypertension: Plan: -BP currently controlled -will hold amlodipine for now while starting metoprolol (7) DVT prophylaxis: Plan: -On IV heparin Admission and Anticipated Discharge Date Admission Date: November 08, 2021 Subjective Pt was seen and examined for follow up of SOB and LLE cellulitis Lying in bed with no acute distress watching TV Pt said that he feels fine Cellulitis in LE improves Denies any chest pain, palpitation, dizziness and SOB Review of Systems Review of Systems: All systems reviewed & are unremarkable except as noted in Subjective Physical Exam Physical Exam: General- No acute distress Head- atraumatic Eyes- PERRL, EOMI, ENT- decrease hearing function Neck- supple, no JVD Lungs- clear to auscultation Heart- irregular rhythm; +murmur Abdomen- normal bowel sounds, soft, nontender Extremities- no calf tenderness, +edema, LLE edema improved Neuro- alert, oriented x 3; PERRL, EOMI; no facial palsy; no dysarthria Skin- warm & dry Results & Data Results & Data ([facility]) Vital Signs (Past 12 Hours) Vital Signs Temp Pulse Pulse Resp BP Pulse Ox 11/13/21 23:09 36.7 C 64 19 131/75 96 11/13/21 19:09 36.7 C 82 18 144/83 H 92 11/13/21 16:30 36.5 C 89 18 133/64 98 11/13/21 16:00 69
[2021-11-14] MEDS: HEPARIN SODIUM/DEXTROSE 25,000 UNITS/500 ML BAG IV SCH ×2 (01:02→17:04)
[2021-11-14] MEDS: ceFAZolin 2000MG 2,000 MG/15 ML SYR IV SCH ×3 (05:28→20:48)
[2021-11-14 06:36] LABS: Partial Thromboplastin Ratio 2.5
[2021-11-14 06:47] LABS: Partial Thromboplastin Time 65.2 Seconds (21.0-31.0)
[2021-11-14] MEDS: METOPROLOL TARTRATE 25 MG TAB PO SCH ×2 (08:10→20:27)
[2021-11-14] MEDS: ATORVASTATIN 40 MG TAB PO SCH (08:10)
[2021-11-14] MEDS: ASPIRIN 81 MG ECTAB PO SCH (08:10)
[2021-11-14] MEDS: ADVANCED PROBIOTIC 1250 MG CAPSULE PO SCH (08:10)
[2021-11-14] MEDS: FUROSEMIDE 40 MG/4 ML VIAL IV SCH (08:15)
[2021-11-14] MEDS: INSULIN GLARGINE SOLOSTAR 100 UNITS/ML 3 ML PEN SC SCH ×2 (08:36→20:27)
[2021-11-14] MEDS: INSULIN ASPART PER UNIT SC SCH ×5 (08:38→20:47)
--- NOTE | 2021-11-14 10:30 | Cardiology Progress Note ---
Date of Service November 14, 2021 Assessment & Plan (1) Paroxysmal atrial fibrillation: (2) Heart failure with preserved ejection fraction: (3) Cellulitis: (4) Moderate aortic stenosis: (5) Premature atrial complexes: Plan: Patient remains in sinus rhythm with frequent premature atrial complexes on telemetry. Continue beta-arnel. Transition IV heparin to Eliquis at discharge. Volume status improved with IV furosemide. Renal function remains stable. Cell ulitis resolving. Patient may be transition to oral furosemide 40 mg daily. Echocardiogram demonstrating newly diagnosed moderate aortic valve stenosis. Repeat 2D transthoracic echocardiogram in 6-12 months. Treatment of cellulitis as per internal medicine. Supplement electrolytes as indicated. Outpatient cardiology follow-up in 2-4 weeks. Admission and Anticipated Discharge Date Admission Date: November 08, 2021 Subjective JunePatient seen and examined at the bedside. Telemetry reveals sinus rhythm with PACs. Fluid balance -1.8 L. Stable renal function. No orthopnea or PND. Denies palpitations or chest discomfort. Poor historian due to severe hearing impairment. Review of Systems Review of Systems: All systems reviewed & are unremarkable except as noted in Subjective Physical Exam Constitutional: well developed and well nourished; no acute distress ENMT: Ears: + hearing impairment Respiratory: normal respiratory effort; no respiratory distress and no retractions Auscultation: no crackles, no rales, no rhonchi and no wheezes Cardiovascular: Rate/Rhythm: + irregularly irregular Heart Sounds: normal S1, normal S2 and + murmur (3/6 mid to late peaking, systolic, medium pitched) Vessels: no JVD and no carotid bruit Extremities: + edema (Left lower extr emity edema with erythema) Gastrointestinal (Abdomen): Inspection/Auscultation: abdomen normal to inspection and normal bowel sounds; abdomen not distended Percussion/Palpation: abdomen soft; abdomen nontender, no guarding and abdomen not rigid Neurologic: CN's II-XI intact bilaterally and moves all extremities; no focal motor deficits Motor/Sensory: no tremor Results & Data ([facility]) Vital Signs (Past 12 Hours) Vital Signs Temp Pulse Pulse Resp BP Pulse Ox 11/14/21 07:26 36.5 C 61 19 118/68 93 11/14/21 02:39 36.9 C 70 18 128/86 94 11/13/21 23:09 36.7 C 64 19 131/75 96 11/13/21 23:00 74
[2021-11-14 10:51] LABS: Hematocrit (blood only) 37.7 % (42-52); Hemoglobin 12.4 g/dL (14.0-18.0); Mean Corpuscular Hemoglobin 29.7 pg (25-34); Mean Corpuscular Hgb Conc 32.9 g/dL (32-36); Mean Corpuscular Volume 90.4 fL (80-100); Platelet Count 516 K/uL (130-400); RDW Coefficient of Variation 13.3 % (11.5-14.5); RDW Standard Deviation 43.7 fL (36.4-46.3); Red Blood Count 4.17 M/uL (4.7-6.1); White Blood Count 14.21 K/uL (4.8-10.8)
[2021-11-14 11:20] LABS: BUN Creatinine Ratio 18.4 (10-20); Calcium 8.3 mg/dl (8.5-10.1); Est GFR (Non-African American) 62.1 ml/min; Potassium 4.4 mmol/L (3.5-5.1)
--- NOTE | 2021-11-14 11:21 | Pharmacy Report ---
Pharmacy Glycemic Short Note 2 - Date of Service November 14, 2021 - Glycemic Short BSG Results (Last 24 hours): 11/13/21 11/13/21 11/13/21 11:25 11:26 11:27 POC Glucose 485 H* 269 H 304 H* 11/13/21 11/13/21 11/14/21 16:14 19:56 07:13 POC Glucose 178 H 196 H 190 H 11/14/21 10:52 POC Glucose 284 H OUTPATIENT ANTIDIABETIC REGIMEN: * NPH 35 units SC HS * Novolin R 5 units SC TIDM * Metformin 1000 mg PO BIDM * HbA1c: 11% (11/09/21) ASSESSMENT: 11/14/21: * Patient has been receiving ~100 units of insulin per day for the past several days, with a majority of BSGs still above goal. * Novolog parameters tightened this morning to provide additional coverage with breakfast, but pre-lunch BSG still elevated today. Will tighten again tomorrow morning if patient remains hospitalized. * Likely transition to NPH tomorrow morning in preparation for discharge on 70/30 insulin. 11/12 * BSGs yesterday of 226, 287, 104, and 146 mg/dL * Received 92 units of insulin (50 of which was basal) * Continues on heparin infusion (contains dextrose) * Will plan to continue use scaled Lantus dose this evening to provide equivalent/increased dose compared to yesterday 11/11 * BSGs yesterday of 173, 268, 177, and 172 mg/dL * Received 91 units of insulin (40 units of basal and 51 units of prandial/correctional) * Fasting BSG of 226 mg/dL this morning - will increase basal insulin today * Given high at lunch yesterday, will tighten AM Novolog 11/08 * FA is a 76 year old male presented to ED today with complaints of nausea and worsening shortness of breath x 1 week, subsequently found to be in Afib with RVR. Patient also with LLE cellulitis. * BSG on presentation of 497 mg/dL, treated with 18 units of SC Novolin-R * BSGs trended downward, 213 mg/dL at dinnertime * Will give reduced dose of basal insulin today in light of clear liquid diet PLAN FOR INPATIENT GLYCEMIC CONTROL: * Hold outpatient oral diabetes medications * Basal insulin * Lantus 25-30 units SC BID (see EHR for details) * Bolus insulin: tightened CF/CR * NovoLog per scale ACHS or Q6hrs while NPO * Goal Range: Low 110 mg/dL - High 140 mg/dL * Correction Factor: 12 mg/dL/unit with breakfast, 25 mg/dL/unit with lunch, dinner, HS * Nutritional / Prandial insulin per carb ratio of 1 unit per 3 grams CHO consumed w/ breakfast, 1 unit per 7 grams CHO consumed w/ lunch, dinner, HS PLAN FOR DISCHARGE: * HbA1c of 11% suggests poor outpatient glycemic control * Current regimen is not providing adequate basal insulin as he is only receiving NPH once daily * Patient uses Novolin R and NPH as an outpatient due to cost considerations * Agree with note from sap bpc architect that patient would likely benefit from pre-mixed 70/30 insulin SC BIDM * At this point, pre-mixed 70/30 insulin 55 units SC with breakfast and 25 units SC with dinner is reasonable (prioritizing safety) * Discontinue current outpatient NPH and regular insulin orders * SMBG pre-breakfast, pre-dinner, and HS * eGFR > 60 - reasonable to continue metformin at discharge * Patient will need prompt outpatient follow-up to guide further insulin dosing
[2021-11-14] MEDS: DOXYCYCLINE HYCLATE 100 MG in DEXTROSE 5% 100 ML IV SCH ×2 (12:09→23:47)
[2021-11-14 18:09] LABS: Partial Thromboplastin Time 52.8 Seconds (21.0-31.0)
[2021-11-14] MEDS: TAMSULOSIN HCL 0.4 MG CAP PO SCH (20:27)
--- NOTE | 2021-11-14 23:12 | Hospitalist Progress Note ---
Date of Service November 14, 2021 Assessment & Plan (1) Atrial fibrillation with rapid ventricular response: Plan: Acute HFpEF in setting of newly diagnosed Aortic valve stenosis and Afib RVR. -Admitted to telemetry -Patient presenting from home with reports of worsening shortness of breath x 1 week. -In the ED, found to be in new onset atrial fibrillation with RVR -S/p metoprolol 5 mg IV x 2 with improvement in heart rate on admission, started metoprolol tartrate 12.5 mg p.o. every 6 hours -[id number] - started IV heparin on admission -Echo ordered -EF 60 to 65%. There is mild concentric LVH. LA is moderately dilated. Aortic valve is moderately calcified. Moderate valvular aortic stenosis. -Cardiology consulted, input appreciated -Patient spontaneously converted to sinus rhythm overnight, has frequent PACs, bursts of paroxysmal atrial tachycardia -switched to metoprolol 25 twice daily, continue IV heparin while inpatient, likely discharge on Eliquis, hold amlodipine while titrating metoprolol -Eliquis abarca checked, $47 per month -Patient will also need to follow-up with cardiology in 2 to 4 weeks, and repeat echo in 6 to 12 months, given moderate 11/14/21 Cardiology on board Continue metoprolol 25 mg BID rate control with metoprolol Continue heparin drip for now, will transition to Eliquis (2) Volume overload: Plan: -Lower extremity edema noted on exam -S/p Lasix 40 mg IV in the ED, continue Lasix 40 mg IV daily -Hanna placed for strict I's and O's, low Na+ diet, daily weights -? Tachycardia induced heart failure vs other, echo ordered -Tachycardia now resolved, patient responding well to Lasix - Continue IV lasix for now, will transition to PO lasix 40mg daily (3) Cellulitis: Plan: -LLE erythematous and warm to touch. Wound noted on right anterior quintana. -WBC 16 K, tachycardic on admission. Normal lactate and stable BP. -Started IV Zosyn on admission, WBC now elevated above 20,000 - Blood cultures negative in 48 hrs - follow the final results - added doxycycline for possible MRSA coverage -Noted negative MRSA nasal swab -Wound care nurse consult -WBC is trending down, zosyn switched to cefazolin, plan to switch to PO Abx (4) DM type 2 (diabetes mellitus, type 2): Plan: -Hgb A1c 13.2 01/2021, history of noncompliance Current hemoglobin A1c, 11% -Presenting with uncontrolled hyperglycemia, glucose of 497 -No signs of DKA -Received SQ insulin in the ED with improvement in blood sugar -Continue with Lantus and NovoLog per protocol -Glycemic pharmacy consult, diabetes education provided - pt will need close outpt follow up (5) Abnormal urinalysis: Plan: -UA does not strongly suggest UTI -On IV Zosyn as above -urine culture grew multiple organisms ( possible contamination) (6) Hypertension: Plan: BP currently controlled Amlodipine on hold Continue metoprolol (7) D-dimer, elevated: Plan: Mostly due to acute illness/infection Doppler of LE showed no DVT within the right or left lower extremity. CTA showed no evidence of pulmonary embolism. Mosaic attenuation may reflect small airways disease. No evidence of consolidation to suggest pneumonia. (8) DVT prophylaxis: Plan: -On IV heparin Admission and Anticipated Discharge Date Admission Date: November 08, 2021 Subjective Pt was seen and examined for follow up of SOB and LLE cellulitis Lying in bed with no acute distress watching TV Denies any chest pain, palpitation, dizziness and SOB Review of Systems Review of Systems: All systems reviewed & are unremarkable except as noted in Subjective Physical Exam Physical Exam: General- No acute distress Head- atraumatic Eyes- PERRL, EOMI, ENT- decrease hearing function Neck- supple, no JVD Lungs- clear to auscultation Heart- irregular rhythm; +murmur Abdomen- normal bowel sounds, soft, nontender Extremities- no calf tenderness, +edema, LLE edema improved Neuro- alert, oriented x 3; PERRL, EOMI; no facial palsy; no dysarthria Skin- warm & dry Results & Data Results & Data ([facility]) Vital Signs (Past 12 Hours) Vital Signs Temp Pulse Resp BP Pulse Ox 11/14/21 22:19 36.8 C 73 18 133/81 94 11/14/21 19:19 36.9 C 63 17 145/87 H 95 11/14/21 15:25 36.8 C 60 19 119/63 95
[2021-11-15] MEDS: ceFAZolin 2000MG 2,000 MG/15 ML SYR IV SCH ×3 (06:17→22:23)
[2021-11-15 06:50] LABS: Partial Thromboplastin Time 79.5 Seconds (21.0-31.0)
[2021-11-15] MEDS: METOPROLOL TARTRATE 25 MG TAB PO SCH ×2 (07:58→20:58)
[2021-11-15] MEDS: ASPIRIN 81 MG ECTAB PO SCH (07:58)
[2021-11-15] MEDS: ADVANCED PROBIOTIC 1250 MG CAPSULE PO SCH (07:58)
[2021-11-15] MEDS: ATORVASTATIN 40 MG TAB PO SCH (07:58)
[2021-11-15] MEDS: FUROSEMIDE 40 MG/4 ML VIAL IV SCH (08:03)
[2021-11-15] MEDS: HEPARIN SODIUM/DEXTROSE 25,000 UNITS/500 ML BAG IV SCH (08:48)
[2021-11-15] MEDS: INSULIN HUMAN NPH SC SCH (08:49)
--- NOTE | 2021-11-15 09:07 | Pharmacy Report ---
Pharmacy Glycemic Short Note 2 - Date of Service November 15, 2021 - Glycemic Short BSG Results (Last 24 hours): 11/14/21 11/14/21 11/14/21 05:37 10:52 16:10 Glucose 178 H POC Glucose 284 H 133 H 11/14/21 11/15/21 19:43 07:30 Glucose POC Glucose 197 H 150 H OUTPATIENT ANTIDIABETIC REGIMEN: * NPH 35 units SC HS * Novolin R 5 units SC TIDM * Metformin 1000 mg PO BIDM * HbA1c: 11% (11/09/21) ASSESSMENT: 11/15: * BSGs acceptable yesterday. Received 60 units of Lantus + 55 units of Novolog (TDD = 115 units). * Transitioned patient to NPH this AM to prepare for discharge on 70/30 insulin. * Will split NPH 2/3 in the AM and 1/3 in the PM * Novolog parameters had been tightened for this morning by previous pharmacist to account for persistent postprandial hyperglycemia at lunchtime. Will cont inue. * Slight mixup this morning and AM Novolog was not administered by RN due to 0730 dose already being documented on from previous day accidently. Regardless, lunch BSG was lowest it's been in several days likely due to NPH peak. 11/14: * Patient has been receiving ~100 units of insulin per day for the past several days, with a majority of BSGs still above goal. * Novolog parameters tightened this morning to provide additional coverage with breakfast, but pre-lunch BSG still elevated today. Will tighten again tomorrow morning if patient remains hospitalized. * Likely transition to NPH tomorrow morning in preparation for discharge on 70/30 insulin. PLAN FOR INPATIENT GLYCEMIC CONTROL: * Hold outpatient oral diabetes medications * Basal insulin * Discontinue Lantus * NPH 35 units SC daily with breakfast * NPH 20-25 units SC daily with dinner (BSG 140 or less = 20 units; BSG 141 or more = 25 units) * Bolus insulin * NovoLog per scale ACHS or Q6hrs while NPO * Goal Range: Low 110 mg/dL - High 140 mg/dL * Correction Factor: 12 mg/dL/unit with breakfast, 25 mg/dL/unit with lunch, dinner, HS * Nutritional / Prandial insulin per carb ratio of 1 unit per 3 grams CHO consumed w/ breakfast, 1 unit per 7 grams CHO consumed w/ lunch, dinner, HS PLAN FOR DISCHARGE: * HbA1c of 11% suggests poor outpatient glycemic control * Current regimen is not providing adequate basal insulin as he is only receiving NPH once daily * Patient uses Novolin R and NPH as an outpatient due to cost considerations * Agree with note from educator senior clinical that patient would likely benefit from pre-mixed 70/30 insulin SC BIDM * At this point, pre-mixed 70/30 insulin 60 units SC with breakfast and 30 units SC with dinner is reasonable (prioritizing safety) * Discontinue current outpatient NPH and regular insulin orders * SMBG pre-breakfast, pre-dinner, and HS * eGFR > 60 - reasonable to continue metformin at discharge * Patient will need prompt outpatient follow-up to guide further insulin dosing
[2021-11-15 09:55] LABS: Hematocrit (blood only) 37.4 % (42-52); Hemoglobin 12.4 g/dL (14.0-18.0); Mean Corpuscular Hgb Conc 33.2 g/dL (32-36); Mean Corpuscular Volume 90.3 fL (80-100); Mean Platelet Volume 9.8 fL (7.4-10.4); Platelet Count 470 K/uL (130-400); RDW Coefficient of Variation 13.3 % (11.5-14.5); RDW Standard Deviation 43.7 fL (36.4-46.3); Red Blood Count 4.14 M/uL (4.7-6.1); White Blood Count 13.04 K/uL (4.8-10.8)
--- NOTE | 2021-11-15 10:14 | Cardiology Progress Note ---
Date of Service November 15, 2021 Assessment & Plan (1) Paroxysmal atrial fibrillation: (2) Heart failure with preserved ejection fraction: (3) Cellulitis: (4) Moderate aortic stenosis: (5) Premature atrial complexes: Plan: Patient remains in sinus rhythm with frequent premature atrial complexes on telemetry. Continue beta-arnel. Discontinue IV heparin. Eliquis 5 mg twice daily. Outpatient cost $47 per month. Transition to oral furosemide 40 mg daily. Echocardiogram demonstrating newly diagnosed moderate aortic valve stenosis. Repeat 2D transthoracic echocardiogram in 6-12 months. Treatment of cellulitis as per internal medicine. Supplement electrolytes as indicated. No further inpatient cardiac testing or intervention. Cardiology will sign off. Please call with questions. Outpatient cardiology follow-up in 2-4 weeks. Admission and Anticipated Discharge Date Admission Date: November 08, 2021 Subjective Patient seen and examined at bedside. Fluid balance negative additional 2 L. Remains in sinus rhythm on telemetry. No chest pain or shortness of breath. Denies palpitations or lightheadedness. No signs/symptoms of GI/ blood loss. Requesting discharge. Offers no new concerns/complaints. White blood cell count and platelet trending downward. Severe hearing impairment. Review of Systems Review of Systems: All systems reviewed & are unremarkable except as noted in Subjective Physical Exam Constitutional: well developed and well nourished; no acute distress ENMT: Ears: + hearing impairment Respiratory: normal respiratory effort; no respiratory distress and no retractions Auscultation: no crackles, no rales, no rhonchi and no wheezes Cardiovascular: Rate/Rhythm: + irregularly irregular Heart Sounds: normal S1, normal S2 and + murmur (3/6 mid to late peaking, systolic, medium pitched) Vessels: no JVD and no carotid bruit Extremities: + edema (Left lower extremity edema with erythema) Gastrointestinal (Abdomen): Inspection/Auscultation: abdomen normal to inspection and normal bowel sounds; abdomen not distended Percussion/Pa lpation: abdomen soft; abdomen nontender, no guarding and abdomen not rigid Neurologic: CN's II-XI intact bilaterally and moves all extremities; no focal motor deficits Motor/Sensory: no tremor Results & Data ([facility]) Vital Signs (Past 12 Hours) Vital Signs Temp Pulse Pulse Resp BP BP Pulse Ox 11/15/21 07:39 36.7 C 66 19 120/70 96 11/15/21 07:38 63 11/15/21 05:25 36.6 C 58 L 16 114/66 95 11/14/21 22:19 36.8 C 73 18 133/81 94
[2021-11-15 10:15] LABS: BUN Creatinine Ratio 20.7 (10-20); Calcium 8.6 mg/dl (8.5-10.1); Est GFR (African American) 74.4 ml/min; Est GFR (Non-African American) 64.2 ml/min; Potassium 4.1 mmol/L (3.5-5.1)
[2021-11-15] MEDS: DOXYCYCLINE HYCLATE 100 MG in DEXTROSE 5% 100 ML IV SCH ×2 (11:24→22:23)
[2021-11-15] MEDS: INSULIN ASPART PER UNIT SC SCH ×3 (12:04→21:05)
[2021-11-15] MEDS: APIXABAN 5 MG TABLET PO SCH ×2 (12:05→20:59)
[2021-11-15 13:26] LABS: Partial Thromboplastin Ratio 1.2; Partial Thromboplastin Time 32.2 Seconds (21.0-31.0)
[2021-11-15] MEDS ORDERED: INSULIN HUMAN NPH SC SCH (16:30)
[2021-11-15] MEDS: TAMSULOSIN HCL 0.4 MG CAP PO SCH (20:58)
--- NOTE | 2021-11-15 23:26 | Hospitalist Progress Note ---
Date of Service November 15, 2021 Assessment & Plan (1) Atrial fibrillation with rapid ventricular response: Plan: Acute HFpEF in setting of newly diagnosed Aortic valve stenosis and Afib RVR. -Admitted to telemetry -Patient presenting from home with reports of worsening shortness of breath x 1 week. -In the ED, found to be in new onset atrial fibrillation with RVR -S/p metoprolol 5 mg IV x 2 with improvement in heart rate on admission, started metoprolol tartrate 12.5 mg p.o. every 6 hours -[id number] - started IV heparin on admission -Echo ordered -EF 60 to 65%. There is mild concentric LVH. LA is moderately dilated. Aortic valve is moderately calcified. Moderate valvular aortic stenosis. -Cardiology consulted, input appreciated -Patient spontaneously converted to sinus rhythm overnight, has frequent PACs, bursts of paroxysmal atrial tachycardia -switched to metoprolol 25 twice daily, continue IV heparin while inpatient, likely discharge on Eliquis, hold amlodipine while titrating metoprolol -Eliquis abarca checked, $47 per month -Patient will also need to follow-up with cardiology in 2 to 4 weeks, and repeat echo in 6 to 12 months, given moderate 11/15/21 Cardiology on board Continue metoprolol 25 mg BID rate control with metoprolol Heparin drip discontinue, then transition to Eliquis (2) Volume overload: Plan: -Lower extremity edema noted on exam -S/p Lasix 40 mg IV in the ED, continue Lasix 40 mg IV daily -Hanna placed for strict I's and O's, low Na+ diet, daily weights -? Tachycardia induced heart failure vs other, echo ordered -Tachycardia now resolved, patient responding well to Lasix - Continue IV lasix for now, will transition to PO lasix 40mg daily in am (3) Cellulitis: Plan: -LLE erythematous and warm to touch. Wound noted on right anterior quintana. -WBC 16 K, tachycardic on admission. Normal lactate and stable BP. -Started IV Zosyn on admission, WBC now elevated above 20,000 - Blood cultures negative in 48 hrs - follow the final results - added doxycycline for possible MRSA coverage -Noted negative MRSA nasal swab -Wound care nurse consult -WBC is trending down, zosyn switched to cefazolin, plan to switch to PO Abx Clinically improved significantly (4) DM type 2 (diabetes mellitus, type 2): Plan: -Hgb A1c 13.2 01/2021, history of noncompliance Current hemoglobin A1c, 11% -Presenting with uncontrolled hyperglycemia, glucose of 497 -No signs of DKA -Received SQ insulin in the ED with improvement in blood sugar -Continue with Lantus and NovoLog per protocol -Glycemic pharmacy consult, diabetes education provided - pt will need close outpt follow up (5) Abnormal urinalysis: Plan: -UA does not strongly suggest UTI -On IV Zosyn as above -urine culture grew multiple organisms ( possible contamination) (6) Hypertension: Plan: BP currently controlled Amlodipine on hold Continue metoprolol (7) D-dimer, elevated: Plan: Mostly due to acute illness/infection Doppler of LE showed no DVT within the right or left lower extremity. CTA showed no evidence of pulmonary embolism. Mosaic attenuation may reflect small airways disease. No evidence of consolidation to suggest pneumonia. (8) DVT prophylaxis: Plan: -On IV heparin Admission and Anticipated Discharge Date Admission Date: November 08, 2021 Subjective Pt was seen and examined for follow up of SOB and LLE cellulitis Lying in bed with no acute distress watching TV Patient is very anxious to go home today We will remove Hanna catheter and PT/OT eval before discharge Denies any chest pain, palpitation, dizziness and SOB Review of Systems Review of Systems: All systems reviewed & are unremarkable except as noted in Subjective Physical Exam Physical Exam: General- No acute distress Head- atraumatic Eyes- PERRL, EOMI, ENT- decrease hearing function Neck- supple, no JVD Lungs- clear to auscultation Heart- irregular rhythm; +murmur Abdomen- normal bowel sounds, soft, nontender Extremities- no calf tenderness, +edema, LLE edema improved Neuro- alert, oriented x 3; PERRL, EOMI; no facial palsy; no dysarthria Skin- warm & dry Results & Data Results & Data ([facility]) Vital Signs (Past 12 Hours) Vital Signs Temp Pulse Pulse Resp BP BP Pulse Ox 11/15/21 19:32 36.6 C 64 18 113/70 95 11/15/21 15:28 36.7 C 68 64 19 124/72 91 11/15/21 11:29 36.5 C 58 L 20 121/71 97
[2021-11-16] MEDS: ceFAZolin 2000MG 2,000 MG/15 ML SYR IV SCH ×2 (05:46→15:21)
[2021-11-16] MEDS: APIXABAN 5 MG TABLET PO SCH (08:09)
[2021-11-16] MEDS: METOPROLOL TARTRATE 25 MG TAB PO SCH (08:10)
[2021-11-16] MEDS: ATORVASTATIN 40 MG TAB PO SCH (08:10)
[2021-11-16] MEDS: ADVANCED PROBIOTIC 1250 MG CAPSULE PO SCH (08:11)
[2021-11-16] MEDS: ASPIRIN 81 MG ECTAB PO SCH (08:12)
[2021-11-16] MEDS: INSULIN ASPART PER UNIT SC SCH ×2 (08:17→12:08)
[2021-11-16] MEDS: INSULIN HUMAN NPH SC SCH (08:25)
[2021-11-16] MEDS ORDERED: FUROSEMIDE 40 MG TAB PO SCH (09:00)
[2021-11-16 09:17] LABS: Hematocrit (blood only) 39.9 % (42-52); Hemoglobin 12.9 g/dL (14.0-18.0); Mean Corpuscular Hemoglobin 29.7 pg (25-34); Mean Corpuscular Hgb Conc 32.3 g/dL (32-36); Mean Corpuscular Volume 91.7 fL (80-100); Mean Platelet Volume 9.8 fL (7.4-10.4); Platelet Count 469 K/uL (130-400); RDW Coefficient of Variation 13.3 % (11.5-14.5); RDW Standard Deviation 44.7 fL (36.4-46.3); Red Blood Count 4.35 M/uL (4.7-6.1); White Blood Count 11.72 K/uL (4.8-10.8)
[2021-11-16 09:29] LABS: Partial Thromboplastin Ratio 1.2; Partial Thromboplastin Time 30.8 Seconds (21.0-31.0)
--- NOTE | 2021-11-16 16:24 | Discharge Summary ---
Date of Service November 16, 2021 Admission HPI Per Admitting Provider 76 year old male with PMH DM type II, HTN, BPH, medical non compliance, and other problems listed below who presents to the ED with reports of shortness of breath. Patient is extremely hard of hearing and history is difficult to obtain. is also at the bedside however she is a poor historian as well. Patient has been complaining of nausea and worsening shortness of breath over the past 1 week. He reports one episode of vomiting. He has lower extremity edema on exam and patient and are both unsure how long it has been present. Patient denies chest pain and palpitations. No lightheadedness, dizziness, diaphoresis, syncopal events. No abdominal pain or diarrhea. Denies bright red bleeding per rectum, dark tarry stools, hematemesis, coffee-ground emesis. No urinary symptoms. No fevers or chills. In the ED, patient is found to be in new onset atrial fibrillation with RVR. He has bilateral lower extremity swelling with evidence of cellulitis on the left anterior quintana. WBC 16 K. BP stable, lactate WNL. Glucose 497. Patient was given IV cefepime, IV Lasix 40 mg, 10 units regular insulin SQ, metoprolol 5 mg IV. Admission Exam Per Admitting Provider Constitutional: + ill appearing; no acute distress Eyes: PERRL, conjunctivae normal, anicteric sclerae ENMT: external ear and nose normal, oropharynx normal Ears: + hearing impairment Respiratory: normal respiratory effort, lungs clear to auscultation Cardiovascular: Rate/Rhythm: + tachycardic and + irregularly irregular Vessels: normal peripheral pulses Extremities: + edema (+2 pitting edema BLE) Gastrointestinal (Abdomen): normal bowel sounds, soft, nontender, no hepatosplenomegaly Musculoskeletal: no cyanosis or clubbing, extremities motor strength 5/5 Skin: no rashes, warm and dry Dry, cracking skin noted BLE; right anterior quintana wound without significant surrounding erythema or drainage; left anterior quintana red and warm to touch, no drainage noted Neurologic: PERRL, EOMI, accommodation nl, no face palsy, no dysarthria Psychiatric: A+Ox3, euthymic affect Principal Diagnosis Atrial fibrillation with rapid ventricular response: Volume overload: Cellulitis: DM type 2 (diabetes mellitus, type 2) Hypertension: D-dimer, elevated: Discharge Exam General- No acute distress Head- atraumatic Eyes- PERRL, EOMI, ENT- decrease hearing function Neck- supple, no JVD Lungs- clear to auscultation Heart- irregular rhythm; +murmur Abdomen- normal bowel sounds, soft, nontender Extremities- no calf tenderness, +edema, LLE edema improved Neuro- alert, oriented x 3; PERRL, EOMI; no facial palsy; no dysarthria Skin- warm & dry Discharge Data Allergies Allergy/AdvReac Type Severity Reaction Status Date / Time No Known Allergies Allergy Unverified 03/26/18 14:44 Consultations 11/08/21 14:04 ED Decision to Admit Stat 11/08/21 15:16 Consult Cardiology Routine Ordered Studies 11/08/21 15:22 US venous doppler LE BI Urgent 11/08/21 15:36 CT angio chest PE protocol Stat CT angio chest PE protocol CLINICAL HISTORY: SOB TECHNIQUE: Multidetector row helical CT of the chest was performed. Coronal and sagittal reformations were obtained. Coronal and sagittal MIPS were obtained from the axial data set and were submitted for review. Automated dose lowering techniques and/or adjustment according to patient size were utilized for this exam. Comparison: None available at the time of this dictation. FINDINGS: Lungs and pleura: Mosaic attenuation is seen. Bibasilar atelectasis is noted. Heart and pericardium: Heart size is normal. No pericardial effusion. Vessels: No evidence of pulmonary embolism. Mediastinum and gregorio: Unremarkable. Chest wall and lower neck: Unremarkable. Abdomen: A hiatal hernia is seen. Bones: Degenerative changes in the thoracic spine. Old healed rib fractures are incidentally noted on the left. IMPRESSION: 1. No evidence of pulmonary embolism. 2. Mosaic attenuation may reflect small airways disease. No evidence of consolidation to suggest pneumonia. ACT 112: Negative or not required by law. Electronically signed by: Anderson Serra M.D. 11/08/2021 4:02 PM Dictated:11/08/21 1558 Transcribed: 11/08/21 1558 BILATERAL LOWER EXTREMITY VENOUS DOPPLER HISTORY: elevated D-dimer, swollen lower extremities COMPARISON STUDY: None. FINDINGS: There is normal compressibility, flow, and augmentation within the bilateral lower extremity deep venous systems. IMPRESSION: No DVT within the right or left lower extremity. ACT 112: Negative or not required by law. Electronically signed by: Del Blackburn M.D. 11/08/2021 5:04 PM Dictated:11/08/[id number] Transcribed: 11/08/21 170 XR chest 1V portable CLINICAL HISTORY: weak, cough TECHNIQUE: Single frontal radiograph of the chest was obtained. Comparison: None available at the time of this dictation. FINDINGS: No lines and tubes are seen. The cardiomediastinal silhouette is normal. The lungs are clear. No evidence of pleural effusion or pneumothorax. IMPRESSION: No acute chest disease. ACT 112: Negative or not required by law. Electronically signed by: Anderson Serra M.D. 11/08/2021 11:53 AM Dictated:11/08/21 115 Transcribed: 11/08/21 115 Diabetes Follow up Diabetes Follow-up Needed for HgbA1c >9% Hospital Course (1) Atrial fibrillation with rapid ventricular response: Acute HFpEF in setting of newly diagnosed Aortic valve stenosis and Afib RVR. -Admitted to telemetry -Patient presenting from home with reports of worsening shortness of breath x 1 week. -In the ED, found to be in new onset atrial fibrillation with RVR -S/p metoprolol 5 mg IV x 2 with improvement in heart rate on admission, started metoprolol tartrate 12.5 mg p.o. every 6 hours -[id number] - started IV heparin on admission -Echo ordered -EF 60 to 65%. There is mild concentric LVH. LA is moderately dilated. Aortic valve is moderately calcified. Moderate valvular aortic stenosis. -Cardiology consulted, input appreciated -Patient spontaneously converted to sinus rhythm overnight, has frequent PACs, bursts of paroxysmal atrial tachycardia -switched to metoprolol 25 twice daily, continue IV heparin while inpatient, likely discharge on Eliquis, hold amlodipine while titrating metoprolol -Eliquis abarca checked, $47 per month -Patient will also need to follow-up with cardiology in 2 to 4 weeks, and repeat echo in 6 to 12 months, given moderate 11/15/21 Cardiology on board Continue metoprolol 25 mg BID rate control with metoprolol Heparin drip discontinue, then transition to Eliquis (2) Volume overload: -Lower extremity edema noted on exam -S/p Lasix 40 mg IV in the ED, continue Lasix 40 mg IV daily -Hanna placed for strict I's and O's, low Na+ diet, daily weights -? Tachycardia induced heart failure vs other, echo ordered -Tachycardia now resolved, patient responding well to Lasix - Continue IV lasix for now, will transition to PO lasix 40mg daily in am (3) Cellulitis: -LLE erythematous and warm to touch. Wound noted on right anterior quintana. -WBC 16 K, tachycardic on admission. Normal lactate and stable BP. -Started IV Zosyn on admission, WBC now elevated above 20,000 - Blood cultures negative in 48 hrs - follow the final results - added doxycycline for possible MRSA coverage -Noted negative MRSA nasal swab -Wound care nurse consult -WBC is trending down, zosyn switched to cefazolin, plan to switch to PO Abx Clinically improved significantly (4) DM type 2 (diabetes mellitus, type 2): -Hgb A1c 13.2 01/2021, history of noncompliance Current hemoglobin A1c, 11% -Presenting with uncontrolled hyperglycemia, glucose of 497 -No signs of DKA -Received SQ insulin in the ED with improvement in blood sugar -Continue with Lantus and NovoLog per protocol -Glycemic pharmacy consult, diabetes education provided - pt will need close outpt follow up (5) Abnormal urinalysis: -UA does not strongly suggest UTI -On IV Zosyn as above -urine culture grew multiple organisms ( possible contamination) (6) Hypertension: BP currently controlled Amlodipine on hold Continue metoprolol (7) D-dimer, elevated: Mostly due to acute illness/infection Doppler of LE showed no DVT within the right or left lower extremity. CTA showed no evidence of pulmonary embolism. Mosaic attenuation may reflect small airways disease. No evidence of consolidation to suggest pneumonia. (8) DVT prophylaxis: -On IV heparin Total Time Total Time Spent Total Time Spent (In Minutes): 35 minutes Discharge Plan Discharge Items Patient Disposition: Home - Home Health Services Reason For Visit: AFIB RVR Discharge Diagnosis: Atrial fibrillation with rapid ventricular response: Volume overload: Cellulitis: DM type 2 (diabetes mellitus, type 2) Hypertension: D-dimer, elevated: Activity: Resume your previous activity Non-emergency contact: Primary Care Provider Call non-emergency contact if: you have any medication questions Follow-up/Referrals: James Maria DO [Primary Care Provider] - (Date & Time 11/20/2021 2:20 PM Provider James Maria DO Department [facility] ) Diet: Carb Consistent or DM2 Addtl Attending Provider Instructions: Follow up with your primary care provider on 11/20/2021 at 2:20 PM at the [facility] Follow up with cardiology Dr. Oreilly in 2-4 weeks for repeat echocardiogram in 6 months Check BMP in 1-2 weeks to monitor electrolytes and renal function Continue monitor your blood sugar and bring your blood sugar log at your next appointment with your provider Continue Insulin 70/30 with 50 units subq with breakfast and 25 units Subq with dinner Fall precaution Medication Instructions:Eliquis Your condition is typically treated with an anticoagulant. Anticoagulants will thin your blood to help prevent new clots. You should take her medication exactly as directed. Never skip a dose. Never take a double dose. If you miss a dose, take it as soon as you remember. Avoid NSAIDs (Motrin, Aleve, Naproxen, Ibuprofen, Advil, Meloxicam,..) due to risks of bleeding Call your Primary Care doctor if you experience any of the following: Swelling or Pain in your leg Sudden, continuous pain deep in a muscle Pain that worsens when you are active or when you stand still for a long time Chest Pain Sudden Shortness of Breath Rapid or pounding heart beat Fainting Dizziness Cough with blood or bloody sputum Sweating more than normal Bruises Heavy or uncontrolled bleeding Blood in your urine, stool or vomit Black or tarry stools Pending Studies at Discharge: No Stand-Alone Forms: [facility], Smoking Cessation Medications and DC Order Prescriptions: New Eliquis 5 mg tablet 5 mg PO BID Qty: 60 RF: 0 furosemide 40 mg Tablet 40 mg PO QAM 30 Days Qty: 30 RF: 0 metoprolol tartrate 25 mg Tablet 25 mg PO BID 30 Days Qty: 60 RF: 0 Novolin 70/30 U-100 Insulin 100 unit/mL (70-30) suspension 1 sliding scale dose subcut USEASDIRECTD Qty: 10 RF: 0 Continued atorvastatin 40 mg tablet 40 mg PO DAILY RF: 0 aspirin 81 mg tablet,delayed release (DR/EC) 81 mg PO DAILY RF: 0 tamsulosin 0.4 mg capsule 0.4 mg PO HS RF: 0 metformin 1,000 mg tablet 1,000 mg PO BID RF: 0 Discontinued amlodipine 5 mg tablet 5 mg PO DAILY RF: 0 Novolin R Regular U-100 Insuln 100 unit/mL solution 5 unit subcut TID RF: 0 Novolin N NPH U-100 Insulin 100 unit/mL suspension 35 unit SUBCUT HS RF: 0 Discharge Orders: Discharge Order (Routine); Ordered 11/16/21 Ordered By: Javan Montiel/Other Patient Handouts: Diabetes and Heart Disease, High Blood Sugar (Hy perglycemia), Managing Type 2 Diabetes, Eating Heart-Healthy Foods Admission Data Admit Date/Time: 11/08/21 14:09 Attending Provider: Javan Keith Admit Provider: Crystal Castillo Primary Care Provider: James Maria Other Providers: Clemente Slaughter ; Crystal Castillo ; Vicente Adamson Other Interventions: Discharge Summary Assessment (RN) Last Done: 11/16/21 15:29
== END 2021-11-16 17:33 | disposition home or self-care (01) | DRG 308 ==
LOC: ED 10:35 → EDINP 14:09 → SUATTDRO 14:09 → 2S 16:16

== ENCOUNTER 2021-12-01 11:31 | Inpatient (IN) ==
--- NOTE | 2021-12-01 12:54 | Emergency Department Note ---
Impression & Plan Bacteremia, Cellulitis of right anterior lower leg ED Provider Note Name: KATHARINE VANN Age: 76 Sex: M Arrives Via: Walk-In Informant: Patient, ED Provider: Naveen Mendez MD Chief Complaint: Illness Impression: As per impressions above Medical Decision Makin-year-old gentleman with recent hospitalization has a history of A. fib, CAD, the M2, hypertension, recurrent cellulitis, multiple other medical comorbidities. He notes that he was here 2 days ago for an episode of weakness and was discharged after feeling better. He returns due to 2 of 4 bottles of blood cultures being positive at this time. Patient states he is just been tired but otherwise feeling well. He has been on an antibiotic for a right quintana infection, Keflex for the last 9 days. notes that the quintana infection has not improved at all. Patient has not had any recent fevers, chills, nausea, vomiting or other acute symptoms while here or in the last day besides this just generalized weakness and fatigue. Labs are unremarkable and there is no evidence that he is currently septic however he does have positive blood cultures must be presumed bacteremic at this time. Given his history I feel that hospitalization would be the more effective way of monitoring this patient. He was given IV daptomycin as this should cover primarily skin issues. Pharmacist was consulted who agrees with this plan. Marian pastor was consulted for further management. Per pharmacy evaluation patient is on Keflex for which she has been on about 9 days. It appears per the that this is due to the cellulitis of his right leg which has been gradually worsening despite the Keflex. Prior Medical Record and Triage/Nursing Notes reviewed by Me Additional history obtained from chart Differentials:Viral syndrome, otitis, pharyngitis, pneumonia, influenza, meningitis, urinary tract infection, sepsis, bacteremia, as well as other pathologies. Vital Signs: reviewed and remarkable for no significant abnormalities Interventions: Daptomycin 6 mg/kg IV Labs:Reviewed and remarkable for no significant abnormalities Imaging:States of imaging reviewed from 2 days ago EKG:Per My Interpretation: Indication Sepsis: NSR 61 bpm, qtc 455 with bifascicular. No Ectopy. No Ischemia. Compared to EKG 11/30/21, no significant changes. Consults:Dr Inna Fonseca Hospitalist Plan: Disposition:Hospitalization Condition: Good History of Present Illness:76-year-old male arrives for evaluation of positive blood cultures. Patient notes he been feeling weak and tired in the last few days. He has been developing a worsening redness of his right leg and reportedly was started on an antibiotic that is unsure what it is. Patient was seen in the ER 2 days ago after falling and weakness. He was noted to be hy poglycemic with hypokalemia and elevated lactate. As he was feeling better he was discharged home. Overnight blood cultures into the 4 bottles had become positive with gram-positive cocci. Patient states since going home is just been tired. His notes he is not getting up moving around as much. He has been eating and drinking okay. He denies any cough, fevers, chills, nausea, vomiting, urinary/bowel symptoms. He does note that he has been having increasing swelling of his lower legs and his lower abdomen. He does sometimes get short of breath with exertion but notes more that he is quite fatigued. He has not taken any medications this morning other than his typical medications a nd his antibiotic. He is unsure what the antibiotic is but feels it is a green pill. He does not know why he started the antibiotic but thinks it may have been because of the redness on his leg. Patient denies any history of severe infections nor sepsis previously. He does have a history of paroxysmal A. fib and is on Eliquis for this. Patient denies any falls, trauma, injuries since his evaluation a few days ago when he had extensive work-up at that time. Patient was advised to come to the ER as now 2 of the 4 blood cultures have started growing out bacteria. ROS: See above HPI for pertinent positives & negatives. A total of 10 systems reviewed and were otherwise negative. Past Medical History:See Below Past Surgical History:See Below Family History:See Below Social History:See Below Home Medications:See Below Allergies:No known drug allergies Vitals:Blood Pressure: 130/84, Pulse 64, RR 18, T 36.0C, O2 98% on RA Physical Exam: GENERAL: Patient is tired and elderly appearing and in no acute distress. EYES: No scleral icterus, unremarkable pupils. ENT: Mucous membranes moist, no nasal congestion. NECK: No masses appreciated, nomeningismus, trachea is midline. RESPIRATORY: No dyspnea. Crackles bilateral lower lungs but equal bilaterally. No wheeze, no rhonchi. CARDIOVASCULAR: Irregular.No murmurs, rubs, gallops appreciated. GASTROINTESTINAL: Mildly distended but otherwise abdomen soft, non-tender, no peritonitis.Bowel sounds positive.No masses appreciated. BACK: No midline tenderness, no CVA tenderness EXTREMITIES: 3+ pitting edema right lower leg 2+ pitting edema left lower leg moderate erythema right lower leg with scab. Overall vascular disease noted normal motion all extremities, no cyanosis. NEUROLOGIC: Alert and oriented, no acute motor or sensory deficits, no focal weakness, cranial nerves grossly intact. Patient is very hard of hearing SKIN: No rash, no jaundice, no diaphoresis. PSYCH: Appropriate GCS: 15 ED Course: Times/Reassessments: Stable throughout no complaints Naveen Mendez MD Past Med/Surg History Medical History BPH (benign prostatic hyperplasia) DM type 2 (diabetes mellitus, type 2) Hypertension Surgical History H/O shoulder surgery S/P foot surgery, left Family History Brother Diabetes Social History Smoking Status: Former smoker Tobacco Type: Cigarettes Second Hand Exposure: No; Hx Alcohol Use: Yes Alcohol type: beer Hx Substance Use: No Preferred Language: Taiwanese Communication Ability: Effective Sort Manager Required: No Beliefs That Will Affect Care: None marital status: Current Living Situation: Spouse How many Children do You have: 3 Feels Safe at Home: Yes Assistive Devices: None Allergies Allergies Allergy/AdvReac Type Severity Reaction Status Date / Time No Known Allergies Allergy Unverified 03/26/18 14:44 Home Meds Home Medications Medication Instructions Recorded Confirmed aspirin 81 mg tablet,delayed 81 mg PO DAILY 11/08/21 11/08/21 release atorvastatin 40 mg tablet 40 mg PO DAILY 11/08/21 11/08/21 metformin 1,000 mg tablet 1,000 mg PO BID 11/08/21 11/08/21 tamsulosin 0.4 mg capsule 0.4 mg PO HS 11/08/21 11/08/21 Previous Rx's Medication Instructions Recorded apixaban 5 mg tablet (Eliquis) 5 mg PO BID #60 tab 11/11/21 furosemide 40 mg tablet 40 mg PO QAM 30 Days #30 tab 11/16/21 insulin human U-100 NPH-regulr 1 sliding scale dose SUBCUT 11/16/21 70-30 mix 100 unit/mL subcutaneous USEASDIRECTD #10 ml susp (Novolin 70/30 U-100 Insulin) metoprolol tartrate 25 mg tablet 25 mg PO BID 30 Days #60 tab 11/16/21 Results & Data (ED) Vital Signs Vital Signs - 24 hr 12/01/21 11:38 Temperature 36.0 C L Temperature Source Temporal Artery Scan Pulse Rate 64 Pulse Rhythm Regular Pulse Strength Normal Respiratory Rate 18 Respiratory Effort / Characteristics Non-Labored Spontaneous Respiratory Depth Normal Respiratory Pattern Regular Blood Pressure 130/84 Blood Pressure Mean 99 Blood Pressure Position Sitting Pulse Oximetry 98 Oxygen Delivery Method Room Air Sepsis Recent Fever Within 48 Hours No Sepsis New/Unexplained Change in Mental Status No Sepsis Action Taken by Nursing No Action Required Laboratory Data Result diagrams: 12/01/21 12:19 12/01/21 12:19 Lab Results 12/01/21 12/01/21 12/01/21 Range/Units 12:19 12:19 12:19 WBC 9.48 (4.8-10.8) K/uL RBC 4.17 L (4.7-6.1) M/uL Hgb 12.4 L (14.0-18.0) g/dL Hct 37.9 L (42-52) % MCV 90.9 (80-100) fL MCH 29.7 (25-34) pg MCHC 32.7 (32-36) g/dL RDW Std Deviation 44.1 (36.4-46.3) fL RDW Coeff of Scott 13.3 (11.5-14.5) % Plt Count 247 (130-400) K/uL MPV 10.7 H (7.4-10.4) fL Immature Gran % (Auto) 0.1 % Neut % (Auto) 46.5 % Lymph % (Auto) 42.8 % [place] % (Auto) 6.5 % Eos % (Auto) 3.7 % Baso % (Auto) 0.4 % Neut # (Auto) 4.40 (1.4-6.5) K/uL Lymph # (Auto) 4.06 H (1.2-3.4) K/uL [place] # (Auto) 0.62 H (0.11-0.59) K/uL Eos # (Auto) 0.35 (0-0.5) K/uL Baso # (Auto) 0.04 (0-0.2) K/uL Immature Gran # (Auto) 0.01 (0.00-0.02) K/uL PT 11.6 (9.0-12.0) Seconds INR 1.2 H (0.9-1.1) APTT 30.0 (21.0-31.0) Seconds PTT Ratio 1.1 Sodium 138 (136-145) mmol/L Potassium 3.7 (3.5-5.1) mmol/L Chloride 99 (98-107) mmol/L Carbon Dioxide 32 (21-32) mmol/L Anion Gap 7 (3-11) BUN 28 H (6-23) mg/dl Creatinine 1.30 (0.6-1.4) mg/dl Est Cr Clr Drug Dosing 49.9 ml/min Est GFR ( Amer) 61.4 ml/min Est GFR (Non-Af Amer) 53.0 ml/min BUN/Creatinine Ratio 21.5 H (10-20) Glucose 103 H (70-99(Fasting)) mg/dl Lactate (0.4-2.0) mmol/L Calcium 8.8 (8.5-10.1) mg/dl Magnesium 1.8 (1.7-2.4) mg/dl Total Bilirubin 0.7 (0.2-1.0) mg/dl AST 14 (13-39) U/L ALT 11 (7-52) U/L Alkaline Phosphatase 52 (34-104) U/L Troponin I < 0.03 (0-0.04) ng/ml B-Natriuretic Peptide (0-100) pg/ml Total Protein 7.7 (6.0-8.3) gm/dl Albumin 3.8 (3.4-5.0) gm/dl Globulin 3.9 (2.5-4.0) gm/dl Albumin/Globulin Ratio 1.0 (0.9-2) Procalcitonin (0-0.5) ng/ml 12/01/21 12/01/21 12/01/21 Range/Units 12:19 13:03 13:03 WBC (4.8-10.8) K/uL RBC (4.7-6.1) M/uL Hgb (14.0-18.0) g/dL Hct (42-52) % MCV (80-100) fL MCH (25-34) pg MCHC (32-36) g/dL RDW Std Deviation (36.4-46.3) fL RDW Coeff of Scott (11.5-14.5) % Plt Count (130-400) K/uL MPV (7.4-10.4) fL Immature Gran % (Auto) % Neut % (Auto) % Lymph % (Auto) % [place] % (Auto) % Eos % (Auto) % Baso % (Auto) % Neut # (Auto) (1.4-6.5) K/uL Lymph # (Auto) (1.2-3.4) K/uL [place] # (Auto) (0.11-0.59) K/uL Eos # (Auto) (0-0.5) K/uL Baso # (Auto) (0-0.2) K/uL Immature Gran # (Auto) (0.00-0.02) K/uL PT (9.0-12.0) Seconds INR (0.9-1.1) APTT (21.0-31.0) Seconds PTT Ratio Sodium (136-145) mmol/L Potassium (3.5-5.1) mmol/L Chloride (98-107) mmol/L Carbon Dioxide (21-32) mmol/L Anion Gap (3-11) BUN (6-23) mg/dl Creatinine (0.6-1.4) mg/dl Est Cr Clr Drug Dosing ml/min Est GFR ( Amer) ml/min Est GFR (Non-Af Amer) ml/min BUN/Creatinine Ratio (10-20) Glucose (70-99(Fasting)) mg/dl Lactate 0.7 (0.4-2.0) mmol/L Calcium (8.5-10.1) mg/dl Magnesium (1.7-2.4) mg/dl Total Bilirubin (0.2-1.0) mg/dl AST (13-39) U/L ALT (7-52) U/L Alkaline Phosphatase (34-104) U/L Troponin I (0-0.04) ng/ml B-Natriuretic Peptide 67 (0-100) pg/ml Total Protein (6.0-8.3) gm/dl Albumin (3.4-5.0) gm/dl Globulin (2.5-4.0) gm/dl Albumin/Globulin Ratio (0.9-2) Procalcitonin < 0.05 (0-0.5) ng/ml Discharge Plan Visit Data Chief Complaint: Swelling/Edema to Extremity Stated Complaint: BACTERIAL INFECTION, SWELLING IN LE ED Provider: Naveen Mendez Discharge Problem: Bacteremia, Cellulitis of right anterior lower leg Forms Stand Alone Forms: [facility] Prescriptions Prescriptions: No Action atorvastatin 40 mg tablet 40 mg PO DAILY RF: 0 aspirin 81 mg tablet,delayed release (DR/EC) 81 mg PO DAILY RF: 0 tamsulosin 0.4 mg capsule 0.4 mg PO HS RF: 0 metformin 1,000 mg tablet 1,000 mg PO BID RF: 0 Eliquis 5 mg tablet 5 mg PO BID Qty: 60 RF: 0 furosemide 40 mg Tablet 40 mg PO QAM 30 Days Qty: 30 RF: 0 metoprolol tartrate 25 mg Tablet 25 mg PO BID 30 Days Qty: 60 RF: 0 Novolin 70/30 U-100 Insulin 100 unit/mL (70-30) suspension 1 sliding scale dose subcut USEASDIRECTD Qty: 10 RF: 0 Referrals Referrals: James Maria DO [Primary Care Provider] -
[2021-12-01 12:58] LABS: Basophils # (auto) 0.04 K/uL (0-0.2); Basophils % (auto) 0.4 %; Eosinophils # (auto) 0.35 K/uL (0-0.5); Eosinophils % (auto) 3.7 %; Hematocrit (blood only) 37.9 % (42-52); Hemoglobin 12.4 g/dL (14.0-18.0); Immature Granulocytes # (auto) 0.01 K/uL (0.00-0.02); Immature Granulocytes % (auto) 0.1 %; Lymphocytes # (auto) 4.06 K/uL (1.2-3.4); Lymphocytes % (auto) 42.8 %; Mean Corpuscular Hemoglobin 29.7 pg (25-34); Mean Corpuscular Hgb Conc 32.7 g/dL (32-36); Mean Corpuscular Volume 90.9 fL (80-100); Mean Platelet Volume 10.7 fL (7.4-10.4); Monocytes # (auto) 0.62 K/uL (0.11-0.59); Monocytes % (auto) 6.5 %; Neutrophils % (auto) 46.5 %; Platelet Count 247 K/uL (130-400); RDW Coefficient of Variation 13.3 % (11.5-14.5); RDW Standard Deviation 44.1 fL (36.4-46.3); Red Blood Count 4.17 M/uL (4.7-6.1); White Blood Count 9.48 K/uL (4.8-10.8)
[2021-12-01 13:08] LABS: INR 1.2 (0.9-1.1); Partial Thromboplastin Ratio 1.1; Prothrombin Time 11.6 Seconds (9.0-12.0)
[2021-12-01] MEDS ORDERED: DAPTOmycin 450 MG in SYRINGE 0 ML IV ONE (13:14)
[2021-12-01 13:30] LABS: Troponin I < 0.03 ng/ml (0-0.04)
[2021-12-01 13:43] LABS: Alanine Aminotransferase 11 U/L (7-52); Albumin Level 3.8 gm/dl (3.4-5.0); Alkaline Phosphatase 52 U/L (34-104); Anion Gap 7 (3-11); Aspartate Aminotransferase 14 U/L (13-39); BUN Creatinine Ratio 21.5 (10-20); Bilirubin,Total 0.7 mg/dl (0.2-1.0); Blood Urea Nitrogen 28 mg/dl (6-23); Calcium 8.8 mg/dl (8.5-10.1); Carbon Dioxide 32 mmol/L (21-32); Chloride 99 mmol/L (98-107); Creatinine Clr Calc Pharmacy 49.9 ml/min; Est GFR (African American) 61.4 ml/min; Globulin 3.9 gm/dl (2.5-4.0); Glucose 103 mg/dl (70-99(Fasting)); Magnesium 1.8 mg/dl (1.7-2.4); Potassium 3.7 mmol/L (3.5-5.1); Sodium 138 mmol/L (136-145); Total Protein 7.7 gm/dl (6.0-8.3)
--- NOTE | 2021-12-01 14:59 | History & Physical Report ---
Date of Service December 01, 2021 Assessment & Plan (1) Bacteremia: Plan: Patient is 76 y/o M with PMH paroxysmal A. fib on Eliquis, DM 2, HTN, dyslipidemia, BPH, chronic hearing loss presented to ER as call back as had positive blood cultures from ER visit yesterday for fall. 2 out of 4 blood cultures gram-positive cocci. 11/30/2021 WBC: 14. Lactate: 2.1 Today WBC: 9, lactate: 1.7 Blood cultures pending In ER given daptomycin Continue daptomycin ID consult May need to consider echo CBC in am (2) Cellulitis: Plan: Possible lower extremity cellulitis Recently treated for left lower extremity cellulitis during admission 11/08/2021- 11/16/2021 Continue daptomycin BLE Edema Echo 11/2021 with EF: 60-65%, moderate aortic stenosis Lungs clear to auscultation Continue oral lasix, monitor volume status may need to further adjust (3) DM type 2 (diabetes mellitus, type 2): Plan: Hypoglycemic episodes A1c: 11 on 11/09/2021 Patient's home insulin was adjusted upon hospital discharge. Past several days has had to hypoglycemic episodes which resulted in patient having falls and unresponsive episodes. Patient denies noting any hypoglycemic symptoms Hold home insulin and Metformin NovoLog sliding scale, loose correction at this time Pharmacy consult for assistance Patient will need further adjusting her medications to try to avoid hypoglycemic episodes (4) Paroxysmal atrial fibrillation: Plan: On Eliquis Continue Eliquis, metoprolol tartrate (5) Hypertension: Plan: Stable Continue metoprolol tartrate (6) Dyslipidemia: Plan: Hold atorvastatin while on daptomycin DVT Prophylaxis On Eliquis Full Code as per discussion with pt Follows with Dr Maria for routine care Pt was seen and care coordinated with Dr Castillo. See addendum History of Present Illness Chief Complaint: +blood cultures Primary Care Provider: James Maria, Patient is 76 y/o M with PMH paroxysmal A. fib on Eliquis, DM 2, HTN, dyslipidemia, BPH, chronic hearing loss presented to ER as call back as had positive blood cultures from yesterday. History obtained from patient however with increased difficulty secondary to patient's hearing loss, his assist with history. Patient with history of hospitalization 11/08/2021-11/16/2021 for new onset atrial fibrillation, volume overload, LLE cellulitis. During that admission he was treated with Zosyn, doxycycline and was transitioned to cefazolin. He was discharged home on Eliquis. 11/22/21 was given Keflex for cellulitis leg. Yesterday seen in ER 11/30/2021 as he had a fall and was found to have BSG in the 30s by EMS and was brought to hospital. Patient reports he remembers lying on couch and then next thing he remembers EMS was around him on his kitchen floor and he was diaphoretic. During ER evaluation patient had CT head without any acute intracranial abnormality, CXR without acute abnormality, had WBC of 14, lactate of 2.1. Cultures were drawn. His BSG had improved and he was discharged home. Patient reports at home last night his blood sugars were running high 200s. This morning his BSG was 118. Patient states also had an episode of hypoglycemia 3 days ago where his family found him lying down and yelling out for help and at that time was found to have BSG of 48, EMS had given patient glucose and had improved. He denies noticing any symptoms of hypoglycemia. Patient does not remember this episode. Patient reports recently was taking Novolin NPH 50 units before breakfast and 25 units before supper since his last admission (prior to that was on Novolin NPH 35units HS, Novolin R 5 units TID) Reports last several days has been taking Novolin NPH 35 units at bedtime. Reports he cut his Metformin from 1000 mg twice daily to 500 mg twice daily at direction of ER and had 500 mg Metformin this morning. Patient and are unsure if he has had any increased lower extremity edema or redness to legs. Denies fever/chills, N/V/D/C, ARBOLEDA, dizziness, vision changes, neck pain, CP, SOB, orthopnea, palpitations, cough, sore throat, choking, otalgia, rhinorrhea, abdominal pain, paresthesias, extremity weakness, urinary symptoms. Allergies Allergy/AdvReac Type Severity Reaction Status Date / Time lisinopril Allergy Severe Swelling Unverified 12/01/21 14:28 of Face/Lips/Tongue Home Medications Medication Instructions Recorded Confirmed Type aspirin 81 mg tablet,delayed 81 mg PO QAM 11/08/21 12/01/21 History release atorvastatin 40 mg tablet 40 mg PO QAM 11/08/21 12/01/21 History metformin 1,000 mg tablet 500 mg PO BIDM 11/08/21 12/01/21 History tamsulosin 0.4 mg capsule 0.4 mg PO HS 11/08/21 12/01/21 History apixaban 5 mg tablet (Eliquis) 5 mg PO BID #60 tab 11/11/21 12/01/21 Rx furosemide 40 mg tablet 40 mg PO QAM 30 Days #30 tab 11/16/21 12/01/21 Rx metoprolol tartrate 25 mg tablet 25 mg PO BID 30 Days #60 tab 11/16/21 12/01/21 Rx cephalexin 500 mg capsule 500 mg PO TID 12/01/21 12/01/21 History insulin NPH isoph U-100 human 100 35 unit SUBCUT HS 12/01/21 12/01/21 History unit/mL subcutaneous suspension (Novolin N NPH U-100 Insulin isophane) Past Med/Surg History Medical History BPH (benign prostatic hyperplasia) DM type 2 (diabetes mellitus, type 2) Dyslipidemia Hearing loss Hypertension Paroxysmal atrial fibrillation Surgical History H/O shoulder surgery S/P foot surgery, left Family History Brother Diabetes Social History Smoking Status: Never smoker Tobacco Type: Cigarettes Second Hand Exposure: No; Do You Dip or Chew Tobacco: No; Hx Alcohol Use: Yes Alcohol type: beer Hx Substance Use: No Preferred Language: Moroccan Communication Ability: Effective Communication Ability Comment: 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 glasses at bedside Review of Systems Review of Systems: All systems reviewed & are unremarkable except as noted in HPI & below Physical Exam Physical Exam: General: no acute distress, WDWN Head: normocephalic, atraumatic Eyes: PERRL, EOM's intact, conjunctiva non-injected, anicteric ENT: normal inspection external ears, nose, mucous membranes moist Neck: supple, trachea midline Lungs: clear, no respiratory distress, no wheezing/rhonchi/rales CV: RRR, + systolic murmur, 2+ pretibial edema Abd: normal BS, soft, non-tender Ext: no calf tenderness, RLE: anterior quintana with eschar with surrounding erythema, LLE: mild erythema anterior leg, non-tender to palpation Neuro: A&O x 3, no focal deficits noted, normal affect Skin: warm, dry Results & Data Results & Data ([facility]) Vital Signs (Past 12 Hours) Vital Signs Temp Pulse Resp BP Pulse Ox 12/01/21 14:10 65 19 12/01/21 14:01 66 24 118/84 12/01/21 14:00 61 20 12/01/21 13:50 58 L 15 12/01/21 13:40 59 L 16 12/01/21 13:30 58 L 17 130/71 12/01/21 13:20 60 20 12/01/21 13:10 57 L 16 12/01/21 13:04 59 L 16 104/69 12/01/21 13:00 58 L 17 12/01/21 12:52 58 L 17 120/72 94 12/01/21 12:51 58 L 18 95 12/01/21 11:38 36.0 C L 64 18 130/84 98 Laboratory Results Short CBC 12/01/21 Range/Units 12:19 WBC 9.48 (4.8-10.8) K/uL Hgb 12.4 L (14.0-18.0) g/dL Hct 37.9 L (42-52) % Plt Count 247 (130-400) K/uL BMP 12/01/21 12:19 Sodium 138 Potassium 3.7 Chloride 99 Carbon Dioxide 32 BUN 28 H Creatinine 1.30 Glucose 103 H Calcium 8.8 Cardiac Enzymes 12/01/21 Range/Units 12:19 Troponin I < 0.03 (0-0.04) ng/ml Liver Function 12/01/21 Range/Units 12:19 Total Bilirubin 0.7 (0.2-1.0) mg/dl AST 14 (13-39) U/L ALT 11 (7-52) U/L Alkaline Phosphatase 52 (34-104) U/L Albumin 3.8 (3.4-5.0) gm/dl Code Status & VTE Plan VTE Prophylaxis Plan VTE Prophylaxis will be ordered: Yes Supervising Physician Co-Signing Physician Notes I have seen and examined the patient and have discussed the case with the provider above. I agree with the assessment and plan as stated. 76 yo M recently discharged on an increased amount of insulin presented to the ER recently and was hypoglycemic. Incidentally found to have positive blood cultures and was called back to the ER. Questionable bilateral lower extremity cellulitis as a source of GPC in blood, not yet speciated. Feels well, afebrile. Denies any other issues. Very hard of hearing limiting history somewhat. Also has an estranged relationship with his who is in the room. Physical exam reveals a WNWD older man in NAD who is breathing with normal effort, clear lungs to auscultation, 3/6 JESSICA across precordium, a soft, NTND abdomen, and bilateral lower extremities with erythema on the distal lower legs with a well healed scabbed wound on the left lower leg and the right leg looks as if a wound has just healed. Slight swelling present but no milagro edema. Agree with Daptomycin and monitoring as above. Repeat blood cultures are pending and there is no other obvious source at this time. DO Jonathan
[2021-12-01] MEDS ORDERED: GLUCOSE 40% GEL 15 GM TUBE PO PRN (17:33)
[2021-12-01] MEDS ORDERED: GLUCOSE 10 TABS/TUBE PO PRN (17:33)
[2021-12-01] MEDS ORDERED: PHARMACY GLYCEMIC MGMT CONSULT PRN (17:33)
[2021-12-01] MEDS ORDERED: DEXTROSE 50% 50 ML SYRINGE IV PRN (17:33)
[2021-12-01] MEDS ORDERED: CARBOHYDRATES FOR HYPOGLYCEMIA PO PRN (17:33)
[2021-12-01] MEDS ORDERED: ACETAMINOPHEN 325 MG TAB PO PRN (17:33)
[2021-12-01] MEDS ORDERED: GLUCAGON FOR INJ 1 MG VIAL SQ PRN (17:33)
[2021-12-01] MEDS: INSULIN ASPART PER UNIT SC SCH ×2 (17:59→21:32)
[2021-12-01] MEDS: METOPROLOL TARTRATE 25 MG TAB PO SCH (21:25)
[2021-12-01] MEDS: TAMSULOSIN HCL 0.4 MG CAP PO SCH (21:26)
[2021-12-01] MEDS: APIXABAN 5 MG TABLET PO SCH (21:58)
[2021-12-01 23:19] LABS: Appearance Urine Cloudy (Clear); Bacteria Urine Automated Negative (Negative); Bilirubin Urine Negative (Negative); Blood Urine 1+ (Negative); Color Urine Yellow; Glucose Urine UA Negative (Negative); Ketones Urine Negative (Negative); Leukocyte Esterase Urine 3+ (Negative); Nitrite Urine Negative (Negative); Protein Urine Negative (Negative); RBC Urine Automated 0-4 /hpf (0-4); Specific Gravity Urine 1.008 (1.000-1.030); Urobilinogen Urine Negative (Negative); WBC Urine Automated >30 /hpf (0-5); pH Urine 6.5 (4.5-7.5)
[2021-12-02] MEDS ORDERED: INSULIN ASPART PER UNIT SC ONE (02:00)
[2021-12-02 07:46] LABS: Hematocrit (blood only) 35.1 % (42-52); Hemoglobin 11.3 g/dL (14.0-18.0); Mean Corpuscular Hemoglobin 29.5 pg (25-34); Mean Corpuscular Hgb Conc 32.2 g/dL (32-36); Mean Corpuscular Volume 91.6 fL (80-100); Mean Platelet Volume 10.4 fL (7.4-10.4); Platelet Count 223 K/uL (130-400); RDW Coefficient of Variation 13.3 % (11.5-14.5); RDW Standard Deviation 44.4 fL (36.4-46.3); Red Blood Count 3.83 M/uL (4.7-6.1); White Blood Count 9.88 K/uL (4.8-10.8)
[2021-12-02] MEDS: FUROSEMIDE 40 MG TAB PO SCH (07:49)
[2021-12-02] MEDS: APIXABAN 5 MG TABLET PO SCH ×2 (07:49→20:10)
[2021-12-02] MEDS: ASPIRIN 81 MG ECTAB PO SCH (07:49)
[2021-12-02] MEDS: METOPROLOL TARTRATE 25 MG TAB PO SCH ×2 (07:49→21:15)
[2021-12-02] MEDS: INSULIN ASPART PER UNIT SC SCH ×4 (07:53→20:12)
[2021-12-02 08:09] LABS: BUN Creatinine Ratio 23.1 (10-20); Calcium 8.4 mg/dl (8.5-10.1); Creatinine Clr Calc Pharmacy 59.9 ml/min; Est GFR (African American) 76.9 ml/min; Est GFR (Non-African American) 66.3 ml/min; Potassium 3.5 mmol/L (3.5-5.1)
--- NOTE | 2021-12-02 09:11 | Electrocardiogram Report ---
Test Reason : Blood Pressure : / mmHG Vent. Rate : 061 BPM Atrial Rate : 061 BPM P-R Int : 160 ms QRS Dur : 120 ms QT Int : 452 ms P-R-T Axes : 050 -55 025 degrees QTc Int : 455 ms Normal sinus rhythm Right bundle branch block Left anterior fascicular block Bifascicular block Voltage criteria for left ventricular hypertrophy Abnormal ECG When compared with ECG of 30-NOV-2021 03:29, Premature supraventricular complexes are no longer Present Confirmed by Hill Echevarria ([id number]) on 12/02/2021 9:10:55 AM Referred By: REFERRED SELF Confirmed By:Hill Echevarria
--- NOTE | 2021-12-02 09:22 | Pharmacy Report ---
Pharmacy Glycemic Short Note 2 - Date of Service December 02, 2021 - Glycemic Short BSG Results (Last 24 hours): 12/01/21 12/01/21 12/01/21 12:19 17:51 21:21 Glucose 103 H POC Glucose 79 92 12/02/21 12/02/21 12/02/21 01:59 07:28 07:31 Glucose 109 H POC Glucose 166 H 112 H OUTPATIENT ANTIDIABETIC REGIMEN: * Supposed to be taking: * Novolin 70/30 - 50 units SC w/ breakfast and 25 units SC w/ dinner * Metformin 1000 mg PO BIDM * Actually taking: * NPH 50 units SC w/ breakfast and 25 units SC w/ dinner (caused hypoglycemia) * Last several days: NPH 35 units SC at bedtime * Metformin 500 mg PO BIDM * HbA1c = 11% (11/09/21) ASSESSMENT: * 76 yo M admitted yesterday secondary to bacteremia. Pharmacy has been consulted to assist with inpatient glycemic management. Patient has noted multiple recent episodes of hypoglycemia with hypoglycemic unawareness. Believe there is some confusion with home insulin regimen since it was changed prior to discharge earlier this month. * BSG was 103 mg/dL upon admission. Trended down to 79 mg/dL at dinner and then 92 mg/dL at bedtime. Received no insulin yesterday. Only Metformin in AM prior to admission. * Fasting BSG was 112 mg/dL this AM. Will hold off on any further basal at this time. But given A1c from earlier this month, patient will likely require basal in the coming days. * Novolog will be initiated according to previous admission data with tighter carb coverage/correctional with breakfast only. Targeting a goal of 110-140 mg/dL. PLAN FOR INPATIENT GLYCEMIC CONTROL: * Hold outpatient oral diabetes medications * Basal insulin * None at this time * Bolus insulin * NovoLog per scale ACHS or Q6hrs while NPO * Goal Range: Low 110 mg/dL - High 140 mg/dL * Breakfast: Correction Factor: 12 mg/dL/unit; Nutritional / Prandial insulin per carb ratio of 1 unit per 4 grams CHO consumed * Lunch, Dinner, Bedtime: Correction Factor: 25 mg/dL/unit; Nutritional / Prandial insulin per carb ratio of 1 unit per 7 grams CHO consumed PLAN FOR DISCHARGE: * To be determined.
[2021-12-02] MEDS ORDERED: DAPTOmycin 400 MG in SYRINGE 0 ML IV SCH (14:00)
--- NOTE | 2021-12-02 19:01 | Hospitalist Progress Note ---
Date of Service December 02, 2021 Assessment & Plan (1) Bacteremia: Plan: Patient is 76 y/o M with PMH paroxysmal A. fib on Eliquis, DM 2, HTN, dyslipidemia, BPH, chronic hearing loss presented to ER as call back as had positive blood cultures from ER visit yesterday for fall. 2 out of 4 blood cultures gram-positive cocci. mild leukocytosis that resolved overnight cellultis has improved overnight. 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 (2) Cellulitis: Plan: plan as above. (3) DM type 2 (diabetes mellitus, type 2): Plan: Hypoglycemic episodes at home after escalation in insulin given at discharge, mid Nov. Hard to say if he is complying with the instructions correctly, but lows are dangerous. Currently, he is controlled and glycemic pharmacist is consulted. Cont and appreciate pharmacy dc recs for insulin going home tomorrow. (4) Paroxysmal atrial fibrillation: Plan: Continue Eliquis, heart rate at goal on metoprolol tartrate (5) Hypertension: Plan: chronic, stable, cont current therapy. (6) Dyslipidemia: Plan: Hold atorvastatin while on daptomycin (7) DVT prophylaxis: Plan: Eliquis Full Dispo-to floor, dc home tomorrow. 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 Physical Exam Physical Exam: CONSTITUTIONAL: WNWD, vitals as above, generally well- appearing, NAD EYES: normal conjunctivae, no scleral icterus ENT: external ear and nose normal, MMM NECK: trachea midline RESPIRATORY: clear to auscultation bilaterally, no crackles, rales or wheezes, normal respiratory effort CARDIOVASCULAR: regular rate and rhythm, S1 and 2 heard without murmurs, gallops or rubs, no JVD, no peripheral edema CHEST: inspection of chest was normal GASTROINTESTINAL: soft, nontender, ND, no guarding MUSCULOSKELETAL: strength 5/5 throughout, head is normocephalic and atraumatic SKIN: warm and dry NEUROLOGIC: CN 2-12 grossly intact except he is hard of hearing, no sensory deficit, normal cognition, normal speech, no tremor PSYCHIATRIC: alert cooperative and oriented to person, place and time. Euthymic mood, makes good eye contact, language grossly intact, recent and remote memory grossly intact. Results & Data Results & Data ([facility]) Vital Signs (Past 12 Hours) Vital Signs Temp Pulse Pulse Resp BP Pulse Ox 12/02/21 16:45 55 L 12/02/21 16:12 36.5 C 57 L 20 125/75 97 12/02/21 11:14 36.3 C L 55 L 20 142/82 H 99 12/02/21 07:32 55 L Laboratory Results Short CBC 12/02/21 Range/Units 07:28 WBC 9.88 (4.8-10.8) K/uL Hgb 11.3 L (14.0-18.0) g/dL Hct 35.1 L (42-52) % Plt Count 223 (130-400) K/uL BMP 12/02/21 07:28 Sodium 137 Potassium 3.5 Chloride 101 Carbon Dioxide 32 BUN 25 H Creatinine 1.08 Glucose 109 H Calcium 8.4 L Urine 12/01/21 Range/Units 23:00 Urine Color Yellow Urine Appearance Cloudy A (Clear) Urine pH 6.5 (4.5-7.5) Ur Specific [place] 1.008 (1.000-1.030) Urine Protein Negative (Negative) Urine Glucose (UA) Negative (Negative) Medications Administered Current Inpatient Medications Acetaminophen (Acetaminophen 325 Mg Tab) 650 mg PO Q4H PRN PRN Reason: Pain or Fever Stop: 12/31/21 17:32 Apixaban (Apixaban 5 Mg Tablet) 5 mg PO BID DARIN Stop: 12/31/21 20:59 Last Admin: 12/02/21 07:49 Dose: 5 mg Documented by: Aspirin (Aspirin 81 Mg Ectab) 81 mg PO QAM DARIN Stop: 01/01/22 08:59 Last Admin: 12/02/21 07:49 Dose: 81 mg Documented by: Dextrose (Dextrose 50% 50 Ml Syringe) 25 - 50 ml IV UD PRN; Protocol PRN Reason: Hypoglycemia Protocol Stop: 12/31/21 17:32 Furosemide (Furosemide 40 Mg Tab) 40 mg PO QAM [facility] Stop: 01/01/22 08:59 Last Admin: 12/02/21 07:49 Dose: 40 mg Documented by: Glucagon (Glucagon For Inj 1 Mg Vial) 1 mg SQ UD PRN; Protocol PRN Reason: Hypoglycemia Protocol Stop: 12/31/21 17:32 Glucose (Glucose 10 Tabs/Tube) 4 - 8 tabs PO UD PRN; Protocol PRN Reason: Hypoglycemia Protocol Stop: 12/31/21 17:32 Glucose (Glucose 40% Gel 15 Gm Tube) 15 - 30 gm PO UD PRN; Protocol PRN Reason: Hypoglycemia Protocol Stop: 12/31/21 17:32 Daptomycin 400 mg/ Syringe 8 mls @ 4 mls/min IV Q24H [facility]; Protocol Stop: 12/16/21 13:59 Last Admin: 12/02/21 17:12 Dose: 4 mls/min Documented by: Insulin Aspart (Insulin Aspart Per Unit) 0 units SC DAILY@0730 DARIN; Protocol Stop: 12/31/21 17:59 Insulin Aspart (Insulin Aspart Per Unit) 0 units SC TID@1130,1630,2100 [facility]; Protocol Stop: 01/01/22 11:29 Last Admin: 12/02/21 17:11 Dose: 6 units Documented by: Metoprolol Tartrate (Metoprolol Tartrate 25 Mg Tab) 25 mg PO BID [facility] Stop: 12/31/21 20:59 Last Admin: 12/02/21 07:49 Dose: 25 mg Documented by: Miscellaneous (Carbohydrates For Hypoglycemia ) 15 - 30 gm PO UD PRN PRN Reason: Hypoglycemia Protocol Stop: 12/31/21 17:32 Miscellaneous Information (Daptomycin Consult Active) 1 ea N/A UD PRN PRN Reason: Consult Stop: 12/31/21 13:13 Miscellaneous Information (Pharmacy Glycemic Mgmt Consult) 1 ea N/A UD PRN; Protocol PRN Reason: Consult Stop: 12/31/21 17:32 Tamsulosin HCl (Tamsulosin Hcl 0.4 Mg Cap) 0.4 mg PO HS [facility] Stop: 12/31/21 20:59 Last Admin: 12/01/21 21:26 Dose: 0.4 mg Documented by:
[2021-12-02] MEDS ORDERED: LINEZOLID CONSULT ACTIVE PRN (19:12)
[2021-12-02] MEDS: LINEZOLID 600 MG TAB PO SCH (20:10)
[2021-12-02] MEDS: TAMSULOSIN HCL 0.4 MG CAP PO SCH (20:10)
[2021-12-03] MEDS ORDERED: INSULIN ASPART PER UNIT SC SCH ×2 (07:30→11:30)
[2021-12-03] MEDS: ASPIRIN 81 MG ECTAB PO SCH (08:13)
[2021-12-03] MEDS: FUROSEMIDE 40 MG TAB PO SCH (08:13)
[2021-12-03] MEDS: APIXABAN 5 MG TABLET PO SCH (08:13)
[2021-12-03] MEDS: METOPROLOL TARTRATE 25 MG TAB PO SCH (08:14)
[2021-12-03] MEDS: LINEZOLID 600 MG TAB PO SCH (08:14)
[2021-12-03] MEDS ORDERED: INSULIN 70% ASPART PROTAMINE/30% ASPART SC ONE (08:30)
--- NOTE | 2021-12-03 12:22 | Discharge Summary ---
Date of Service December 03, 2021 Admission HPI Per Admitting Provider Patient is 76 y/o M with PMH paroxysmal A. fib on Eliquis, DM 2, HTN, dyslipidemia, BPH, chronic hearing loss presented to ER as call back as had positive blood cultures from yesterday. History obtained from patient however with increased difficulty secondary to patient's hearing loss, his assist with history. Patient with history of hospitalization 11/08/2021-11/16/2021 for new onset atrial fibrillation, volume overload, LLE cellulitis. During that admission he was treated with Zosyn, doxycycline and was transitioned to cefazolin. He was discharged home on Eliquis. 11/22/21 was given Keflex for cellulitis leg. Yesterday seen in ER 11/30/2021 as he had a fall and was found to have BSG in the 30s by EMS and was brought to hospital. Patient reports he remembers lying on couch and then next thing he remembers EMS was around him on his kitchen floor and he was diaphoretic. During ER evaluation patient had CT head without any acute intracranial abnormality, CXR without acute abnormality, had WBC of 14, lactate of 2.1. Cultures were drawn. His BSG had improved and he was discharged home. Patient reports at home last night his blood sugars were running high 200s. This morning his BSG was 118. Patient states also had an episode of hypoglycemia 3 days ago where his family found him lying down and yelling out for help and at that time was found to have BSG of 48, EMS had given patient glucose and had improved. He denies noticing any symptoms of hypoglycemia. Patient does not remember this episode. Patient reports recently was taking Novolin NPH 50 units before breakfast and 25 units before supper since his last admission (prior to that was on Novolin NPH 35units HS, Novolin R 5 units TID) Reports last several days has been taking Novolin NPH 35 units at bedtime. Reports he cut his Metformin from 1000 mg twice daily to 500 mg twice daily at direction of ER and had 500 mg Metformin this morning. Patient and are unsure if he has had any increased lower extremity edema or redness to legs. Denies fever/chills, N/V/D/C, ARBOLEDA, dizziness, vision changes, neck pain, CP, SOB, orthopnea, palpitations, cough, sore throat, choking, otalgia, rhinorrhea, abdominal pain, paresthesias, extremity weakness, urinary symptoms. Admission Exam Per Admitting Provider General: no acute distress, WDWN Head: normocephalic, atraumatic Eyes: PERRL, EOM's intact, conjunctiva non-injected, anicteric ENT: normal inspection external ears, nose, mucous membranes moist Neck: supple, trachea midline Lungs: clear, no respiratory distress, no wheezing/rhonchi/rales CV: RRR, + systolic murmur, 2+ pretibial edema Abd: normal BS, soft, non-tender Ext: no calf tenderness, RLE: anterior quintana with eschar with surrounding erythema, LLE: mild erythema anterior leg, non-tender to palpation Neuro: A&O x 3, no focal deficits noted, normal affect Skin: warm, dry Principal Diagnosis bilateral leg cellulitis insulin dependent diabetes mellitus Discharge Exam CONSTITUTIONAL: WNWD, vitals as above, generally well-appearing, NAD EYES: normal conjunctivae, no scleral icterus ENT: external ear and nose normal, MMM NECK: trachea midline RESPIRATORY: clear to auscultation bilaterally, no crackles, rales or wheezes, normal respiratory effort CARDIOVASCULAR: regular rate and rhythm, S1 and 2 heard without murmurs, gallops or rubs, no JVD, no peripheral edema CHEST: inspection of chest was normal GASTROINTESTINAL: soft, nontender, ND, no guarding MUSCULOSKELETAL: strength 5/5 throughout, head is normocephalic and atraumatic SKIN: warm and dry NEUROLOGIC: CN 2-12 grossly intact except he is hard of hearing, no sensory deficit, normal cognition, normal speech, no tremor PSYCHIATRIC: alert cooperative and oriented to person, place and time. Euthymic mood, makes good eye contact, language grossly intact, recent and remote memory grossly intact. Discharge Data Allergies Allergy/AdvReac Type Severity Reaction Status Date / Time lisinopril Allergy Severe Swelling Unverified 12/01/21 14:28 of Face/Lips/Tongue Consultations 12/01/21 14:05 ED Decision to Admit Stat 12/01/21 17:33 Consult Infectious Diseases Routine Hospital Course (1) Bacteremia: Patient is 76 y/o M with PMH paroxysmal A. fib on Eliquis, DM 2, HTN, dyslipidemia, BPH, chronic hearing loss presented to ER as call back as had positive blood cultures from ER visit for fall. 2 out of 4 blood cultures gram-positive cocci. mild leukocytosis that resolved overnight cellultis has improved overnight. 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 (2) Cellulitis: plan as above. (3) DM type 2 (diabetes mellitus, type 2): Hypoglycemic episodes at home after escalation in insulin given at discharge, mid Nov. Hard to say if he is complying with the instructions correctly, but lows are dangerous. Currently, he is controlled and glycemic pharmacist is consulted. (4) Paroxysmal atrial fibrillation: Continue Eliquis, heart rate at goal on metoprolol tartrate (5) Hypertension: chronic, stable, cont current therapy. (6) Dyslipidemia: Hold atorvastatin while on daptomycin (7) DVT prophylaxis: Eliquis Full Dispo-to floor, me home Total Time Total Time Spent Total Time Spent (In Minutes): 60 Discharge Plan Discharge Items Patient Disposition: Home - Self-Care Reason For Visit: BACTERIAMIA Discharge Diagnosis: bilateral leg cellulitis insulin dependent diabetes mellitus Condition on Discharge: Good Activity: Resume your previous activity Non-emergency contact: Primary Care Provider Call non-emergency contact if: you have any medication questions, your symptoms worsen and you have a fever Follow-up/Referrals: James Maria DO [Primary Care Provider] - (Date & Time 12/10/2021 11:00 AM Provider James Maria DO Department [facility] ) Diet: Carb Consistent or DM2 Addtl Attending Provider Instructions: Please take all medications as instructed on discharge list below. You have been given antibiotics to take for your legs, which have improved. This is consistent with cellulitis. You were also found to have some low blood sugars, which may be from not switching to the 70/30 mixed insulin that was prescribed at the last discharge. Please make sure to take this insulin INSTEAD OF your Novolin NPH, as your Novolin NPH given at night may cause more low blood sugar levels which can be dangerous. Close MTM clinic followup is recommended. Please follow-up with your primary care provider within one week of the hospital discharge for re-evaluation of your legs, and to ensure you are still doing well on the antibiotic therapy. This will also be an important time to check that your blood sugars have been steady on this new insulin. Please bring a record of your blood sugars for review when you come to your outpatient appointment. It was a pleasure taking care of you! Please call if you have any questions or problems. You can reach a [facility] hospitalist on duty at [facility] 24 hours a day by calling [phone]. Take care of yourself. Crystal Castillo, [facility] Center[facility] Pending Studies at Discharge: Yes Studies:: finalized blood cultures are pending Stand-Alone Forms: My [facility] Medications and DC Order Prescriptions: New linezolid 600 mg Tablet 600 mg PO BID Qty: 28 RF: 0 Novolin 70/30 U-100 Insulin 100 unit/mL (70-30) suspension 15 unit subcut DIRECTED Qty: 10 RF: 0 Continued atorvastatin 40 mg tablet 40 mg PO QAM RF: 0 aspirin 81 mg tablet,delayed release (DR/EC) 81 mg PO QAM RF: 0 tamsulosin 0.4 mg capsule 0.4 mg PO HS RF: 0 metformin 1,000 mg tablet 500 mg PO BIDM RF: 0 Eliquis 5 mg tablet 5 mg PO BID Qty: 60 RF: 0 Changed Novolin N NPH U-100 Insulin 100 unit/mL suspension 15 unit SUBCUT QAM Qty: 10 RF: 0 Discontinued cephalexin 500 mg capsule 500 mg PO TID RF: 0 Novolin N NPH U-100 Insulin 100 unit/mL suspension 35 unit SUBCUT HS RF: 0 Discharge Orders: Discharge Order (Routine); Ordered 12/03/21 Ordered By: Crystal Montiel/Other Patient Handouts: Managing Type 2 Diabetes, Special Foot Care for Diabetes Admission Data Admit Date/Time: 12/01/21 14:58 Attending Provider: Crystal Castillo Admit Provider: Crystal Castillo Primary Care Provider: James Maria Other Providers: Javan Keith ; Rebel Pacheco ; Alethea Jennings ; Wilian Ramos I. ; Roland Coleman II ; Gerri Thacker ; Abdullahi Bains ; Stanford Whitfield Other Interventions: Discharge Summary Assessment (RN) Last Done: 12/03/21 12:44
--- NOTE | 2021-12-03 15:07 | Pharmacy Report ---
Pharmacy Glycemic Short Note 2 - Date of Service December 03, 2021 - Glycemic Short BSG Results (Last 24 hours): 12/02/21 12/02/21 12/03/21 16:39 20:08 07:57 POC Glucose 93 132 H 173 H 12/03/21 12:06 POC Glucose 174 H OUTPATIENT ANTIDIABETIC REGIMEN: * Supposed to be taking: * Novolin 70/30 - 50 units SC w/ breakfast and 25 units SC w/ dinner * Metformin 1000 mg PO BIDM * Actually taking: * NPH 50 units SC w/ breakfast and 25 units SC w/ dinner (caused hypoglycemia) * Last several days: NPH 35 units SC at bedtime * Metformin 500 mg PO BIDM * HbA1c = 11% (11/09/21) ASSESSMENT: 12/03 * Initiated 70/30 this AM with intent to use at home, however, patient with large supply of NPH that he would prefer to use (per Twila Siddiqui) * To be discharged today per Dr. Castillo - see below 12/02 * 76 yo M admitted yesterday secondary to bacteremia. Pharmacy has been consulted to assist with inpatient glycemic management. Patient has noted multiple recent episodes of hypoglycemia with hypoglycemic unawareness. Believe there is some confusion with home insulin regimen since it was changed prior to discharge earlier this month. * BSG was 103 mg/dL upon admission. Trended down to 79 mg/dL at dinner and then 92 mg/dL at bedtime. Received no insulin yesterday. Only Metformin in AM prior to admission. * Fasting BSG was 112 mg/dL this AM. Will hold off on any further basal at this time. But given A1c from earlier this month, patient will likely require basal in the coming days. * Novolog will be initiated according to previous admission data with tighter carb coverage/correctional with breakfast only. Targeting a goal of 110-140 mg/dL. PLAN FOR INPATIENT GLYCEMIC CONTROL: * Hold outpatient oral diabetes medications * Basal insulin * None at this time * Bolus insulin * NovoLog per scale ACHS or Q6hrs while NPO * Goal Range: Low 110 mg/dL - High 140 mg/dL * Breakfast: Correction Factor: 12 mg/dL/unit; Nutritional / Prandial insulin per carb ratio of 1 unit per 4 grams CHO consumed * Lunch, Dinner, Bedtime: Correction Factor: 25 mg/dL/unit; Nutritional / Prandial insulin per carb ratio of 1 unit per 7 grams CHO consumed PLAN FOR DISCHARGE: * Discussed extensively with Twila Siddiqui and Dr. Castillo. Patient's preference for NPH as only insulin is reasonable for now as insulin requirements this admission are significantly different and lower than prior. Will change to AM administration for now, which will hopefully prevent lows. Will start with low-dose NPH. Metformin was recently decreased due to lows - patient may benefit from an increase but will defer to MTM clinic which he is to f/u w in ~5 days * Plan * NPH 15 units SC qAM * Metformin 500 mg PO BIDM
--- NOTE | 2021-12-03 20:44 | Communication Note ---
Date of Service: December 03, 2021 Patient had already been discharged when the final change to NPH recommendation was made. In fact the patient had expressed that he was not using the original 70/[address] Keith at discharge a couple of weeks ago. He had wanted to use the NPH insulin he had in his personal stock before transitioning. Today on discharge, he left with the discharge summary sheet that said he should have a Novolin 70/30 Flex Pen and take 30 units in the morning and 15 units at night. His reports that she preferred the vial and not the pen, therefore the pharmacist dispensed the active Rx from Dr. Keith a few weeks ago which stated he should take 50 units in the morning and 25 units at night. I instructed his to let him know to decrease the dosage accordingly . She repeated back to me that he should only be taking 30 units in the morning and 15 units in the evening of the Novolin 70/30 solution that he picled up today. Verbalized understanding with intent to comply. Crystal Castillo DO [facility] Hospitalist
== END 2021-12-03 15:15 | disposition home or self-care (01) | DRG 603 ==
LOC: ED 11:31 → EDINP 14:58 → 2N 12-02 02:14 → 3N 12-03 03:34
DX: N40.0 Benign prostatic hyperplasia without lower urinary tract symptoms; I25.10 Atherosclerotic heart disease of native co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 angina pectoris; Z87.891 Personal history of nicotine dependence; Z79.82 Long term (current) use of aspirin; Z79.4 Long term (current) use of insulin; I35.0 Nonrheumatic aortic (valve) stenosis; L03.116 Cellulitis of left lower limb; E87.6 Hypokalemia; L03.115 Cellulitis of right lower limb; H91.90 Unspecified hearing loss, unspecified ear; I48.0 Paroxysmal atrial fibrillation; I10 Essential (primary) hypertension; E78.5 Hyperlipidemia, unspecified; E11.649 Type 2 diabetes mellitus with hypoglycemia without coma; Z91.14 Patient's other noncompliance with medication regimen

== ENCOUNTER 2022-05-16 13:07 | Inpatient (IN) ==
[2022-05-16] MEDS ORDERED: VANCOMYCIN HCL 1,500 MG in SODIUM CHLORIDE 0.9% 500 ML IV ONE (14:29)
[2022-05-16] MEDS ORDERED: CIPROFLOXACIN / D5W 400 MG/200 ML BAG IV STA (14:29)
[2022-05-16] MEDS ORDERED: VANCOMYCIN CONSULT ACTIVE PRN ×2 (14:29→18:32)
--- NOTE | 2022-05-16 14:37 | Emergency Department Note ---
History of Present Illness General Chief complaint: Foot Injury/Pain Stated complaint: WOUND ON BOTTOM OF RIGHT FOOT Time Seen by Provider: 05/16/22 14:05 Source: patient and family () History of Present Illness Provider complaint: Right foot swelling and redness Onset (ago): week(s) 1 Location: foot and right Radiation: non-radiation Pain Consistency: + constant Quality: + other (Swelling and redness) Relieved By: + none Associated symptoms: no chest pain, no cough, no fever/chills, no malaise, no n ausea/vomiting or no shortness of breath This is a 76-year-old male sent here from his doctor's office for an infection of his right foot. The patient has had redness and swelling to the right foot for approximately 1 week. He was on doxycycline and Keflex for this because he had some redness to his quintana with some abrasions. He is still on this medication. He apparently stepped on 2 screws a week ago which punctured his shoe and went into his foot. He did not notice at the time as he has diabetic neuropathy and his feet are insensate. He progressively developed swelling and redness to the foot. He has had no fevers or chills, cough or cold symptoms, chest pain, shortness of breath, nausea, vomiting, diarrhea, abdominal pain or urinary symptoms. He was seen at his doctor's office today and sent here for IV antibiotics. Home Medications Medication Instructions Recorded Confirmed Type atorvastatin 40 mg tablet 40 mg PO QA 11/08/21 05/16/22 History tamsulosin 0.4 mg capsule 0.4 mg PO [facility] 11/08/21 05/16/22 History apixaban 5 mg tablet (Eliquis) 5 mg PO BID #60 tabs 11/11/21 05/16/22 Rx furosemide 40 mg tablet 40 mg PO DAILY 05/16/22 05/16/22 History insulin aspart U-100 100 unit/mL 5 unit subcut TIDM 05/16/22 05/16/22 History (3 mL) subcutaneous pen (Novolog Flexpen U-100 Insulin aspart) insulin glargine 100 unit/mL (3 20 unit subcut HS 05/16/22 05/16/22 History mL) subcutaneous pen (Lantus Solostar U-100 Insulin) metformin 500 mg tablet,extended 1,000 mg PO QA 05/16/22 05/16/22 History release 24 hr metoprolol tartrate 25 mg tablet 25 mg PO BID 05/16/22 05/16/22 History silver sulfadiazine 1 % topical 1 applic topical DAILY 05/16/22 05/16/22 History cream (SSD) Allergies Allergy/AdvReac Type Severity Reaction Status Date / Time lisinopril Allergy Severe Swelling Verified 05/16/22 16:40 of Face/Lips/Tongue Past Med/Surg History Medical History Atrial fibrillation with rapid ventricular response Bilateral edema of lower extremity BPH (benign prostatic hyperplasia) Dyslipidemia Dyspnea Elevated brain natriuretic peptide (BNP) level Hearing loss Hypertension Leukocytosis Surgical History H/O shoulder surgery S/P foot surgery, left Family History Brother Diabetes Social History Smoking Status: Former smoker Tobacco Type: Cigarettes Second Hand Exposure: No; Hx Alcohol Use: Yes Alcohol type: beer Hx Substance Use: No Preferred Language: Bengali Communication Ability: Effective Garage Attendant Required: No Beliefs That Will Affect Care: None marital status: Current Living Situation: Spouse How many Children do You have: 3 Feels Safe at Home: Yes Assistive Devices: Glasses Review of Systems See HPI for pertinent positives & negatives. and A total of 10 systems reviewed and were otherwise negative Physical Exam Vital Signs Vital Signs - 24 hr 05/16/22 13:23 05/16/22 13:55 Temperature 36.4 C L Temperature Source Temporal Artery Scan Pulse Rate 78 Pulse Rate [Finger] 75 Pulse Rhythm Regular Pulse Rhythm [Finger] Regular Pulse Strength Normal Pulse Strength [Finger] Normal Respiratory Rate 20 18 Respiratory Effort / Characteristics Non-Labored Spontaneous Non-Labored Respiratory Depth Normal Normal Respiratory Pattern Regular Blood Pressure 112/69 Blood Pressure [Right Arm] 130/63 Blood Pressure Mean 83 Blood Pressure Mean [Right Arm] 85 Blood Pressure Position Sitting Blood Pressure Position [Right Arm] Lying Pulse Oximetry 94 95 Oxygen Delivery Method Room Air Room Air Sepsis Recent Fever Within 48 Hours No Sepsis New/Unexplained Change in Mental Status No Sepsis Action Taken by Nursing No Action Required Constitutional: Vital signs reviewed. Eyes: Pupils are equal round reactive to light. Conjunctiva are noninjected. ENT: Pharynx is clear without erythema or exudate. Mucous membranes are moist. Neck supple without meningeal signs. Respiratory: Clear to auscultation bilaterally. Breath sounds are equal bilater ally. Cardiovascular: Regular rate and rhythm. No rubs or gallops. GI: Soft, nondistended and nontender. Bowel sounds are present. Musculoskeletal: Diffuse swelling to the right foot with 1 cm puncture wound to the sole in the midfoot without drainage. There is diffuse erythema to the sole of the foot. No tenderness. There is some increased warmth. Abrasions to the right quintana with some mild erythema. Integumentary: No cyanosis. or jaundice. Neurological: The patient is awake and alert. Very hard of hearing. Psychiatric: Normal affect. Not anxious appearing. Course Administered Medications Discontinued Medications Vancomycin HCl 1,500 mg/ (Sodium Chloride) 530 mls @ 200 mls/hr IV NOW ONE Stop: 05/16/22 17:07 Last Admin: 05/16/22 15:43 Dose: 200 mls/hr Documented By: [facility] Medical Decision Making Differential Diagnosis Cellulitis, abscess, retained foreign body, osteomyelitis, fracture, Sirs Medical Records Attestation: I reviewed the patient's medical records. I did perform a limited focused review of portions of the patient's old chart on the electronic medical record. The patient was admitted in December for bacteremia and bilateral lower extremity cellulitis. He had 2 out of 4 blood cultures which grew out gram-positive cocci Home Medications Current Medication List: was personally reviewed by me Laboratory Data Attestation: I reviewed the patient's lab results. Result diagrams: 05/16/22 14:49 05/16/22 14:49 Lab Results 05/16/22 05/16/22 Range/Units 14:49 14:49 WBC 12.07 H (4.8-10.8) K/ul RBC 4.13 L (4.63-6.08) M/uL Hgb 12.0 L (14.0-18.0) g/dl Hct 35.0 L (40.1-51.0) % MCV 84.7 (80.0-100.0) fL MCH 29.1 (25.0-34.0) pg MCHC 34.3 (32.0-36.0) g/dL RDW Std Deviation 38.6 (36.4-46.3) fL RDW Coeff of Scott 12.5 (11.5-14.5) % Plt Count 356 (130-400) K/uL MPV 10.2 (9.4-12.4) fL Immature Gran % (Auto) 0.2 % Neut % (Auto) 76.5 % Lymph % (Auto) 14.8 % Blair % (Auto) 7.5 % Eos % (Auto) 0.6 % Baso % (Auto) 0.4 % Neut # (Auto) 9.23 H (1.4-6.5) K/uL Lymph # (Auto) 1.79 (1.2-3.4) K/uL Blair # (Auto) 0.90 H (0.24-0.82) K/uL Eos # (Auto) 0.07 (0-0.50) K/uL Baso # (Auto) 0.05 (0-0.2) K/uL Immature Gran # (Auto) 0.03 H (0.00-0.02) K/uL Sodium 136 (136-145) mmol/L Potassium 3.1 L (3.5-5.1) mmol/L Chloride 95 L (98-107) mmol/L Carbon Dioxide 31 (21-32) mmol/L Anion Gap 10 (3-11) BUN 18 (6-23) mg/dl Creatinine 1.07 (0.6-1.4) mg/dl Est Cr Clr Drug Dosing 57.6 ml/min Est GFR ( Amer) 77.7 ml/min Est GFR (Non-Af Amer) 67.1 ml/min BUN/Creatinine Ratio 16.8 (10-20) Glucose 198 H (70-99(Fasting)) mg/dl Calcium 8.7 (8.5-10.1) mg/dl Total Bilirubin 1.0 (0.2-1.0) mg/dl AST 14 (13-39) U/L ALT 12 (7-52) U/L Alkaline Phosphatase 69 (34-104) U/L Total Protein 7.3 (6.0-8.3) gm/dl Albumin 3.4 (3.4-5.0) gm/dl Globulin 3.9 (2.5-4.0) gm/dl Albumin/Globulin Ratio 0.9 (0.9-2) Imaging Data Radiologist's Impression: Foot X-Ray 05/16/22 14:06 XR foot RT min 3V routine CLINICAL HISTORY: stepped on nail eval for foreign body or fracture within right foot COMPARISON STUDY: Right foot MRI 02/11/2017. FINDINGS: Diffuse soft tissue swelling within the right ankle and right foot. There are small plantar and posterior calcaneal spurs. No acute fracture or dislocation within the right foot. Chronic changes within the proximal phalanx of the right first toe. Moderate degenerative changes. Bunion at the first MTP joint. The Lisfranc joint is intact. No radiopaque foreign bodies. Mild degenerative changes at the intertarsal joints IMPRESSION: 1. No fracture or dislocation within the right foot. 2. No radiopaque foreign bodies. 3. Chronic/degenerative changes as described above. ACT 112: Negative or not required by law. Electronically signed by: Del Blackburn M.D. 05/16/2022 2:47 PM [facility] Narrative I did evaluate the patient as noted above. The patient is presenting with a right foot infection after stepping on 2 screws through his shoes a week ago. He has been on doxycycline and Keflex before he injured himself but he has worsening infection. He was seen by his doctor and sent here for IV antibiotic treatment. He does have severe diabetic neuropathy and so he does not really feel the foot at all. I the access was established. Blood cultures were obtained. I did treat the patient with IV Vanco and Cipro. I did order and personally reviewed the images of the patient's right foot x-rays as described above. There is no evidence of acute fracture or foreign body. I did order and review the patient's blood work as noted in the electronic medical record. His white count is elevated at 12. Hemoglobin is 12 is well. Platelet count is within normal limits. CMP is remarkable for hyperglycemia with a glucose of 198 and a potassium of 3.1. He was given K dur 40 mill equivalent p.o. He was informed of his test results. I did discuss case with the hospitalist and case management social worker.. Impression & Plan Right foot infection, Puncture wound of foot, right, Acute hyperglycemia, Acute hypokalemia Discharge Plan Visit Data Chief Complaint: Foot Injury/Pain Stated Complaint: WOUND ON BOTTOM OF RIGHT FOOT ED Provider: Carlos Vega Discharge Problem: Right foot infection, Puncture wound of foot, right, Acute hyperglycemia, Acute hypokalemia Patient Disposition: Being Evaluated by Hospitalist Forms Stand Alone Forms: My [facility] Prescriptions Prescriptions: No Action furosemide 40 mg tablet 40 mg PO DAILY silver sulfadiazine [SSD] 1 % cream 1 applic TOPICAL DAILY Rx Instructions: APPLY TO LEFT FOOT metformin 500 mg tablet extended release 24 hr 1,000 mg PO QAM insulin aspart U-100 [Novolog Flexpen U-100 Insulin] 100 unit/mL (3 mL) Insulin Pen 5 unit SUBCUT TIDM metoprolol tartrate 25 mg tablet 25 mg PO BID insulin glargine [Lantus Solostar U-100 Insulin] 100 unit/mL (3 mL) insulin pen 20 unit SUBCUT HS Rx Instructions: PER GMG 15 UNITS AT HS. atorvastatin 40 mg tablet 40 mg PO QAM tamsulosin 0.4 mg capsule 0.4 mg PO QAM Eliquis 5 mg tablet 5 mg PO BID Qty: 60 0RF Referrals Referrals: James Maria DO [Primary Care Provider] - : Puncture wound of foot, right Qualifiers: Encounter type: initial encounter Qualified Code(s): S91.331A - Puncture wound without foreign body, right foot, initial encounter
--- NOTE | 2022-05-16 14:48 | XRay Report ---
XR foot RT min 3V routine CLINICAL HISTORY: stepped on nail eval for foreign body or fracture within right foot COMPARISON STUDY: Right foot MRI 02/11/2017. FINDINGS: Diffuse soft tissue swelling within the right ankle and right foot. There are small plantar and posterior calcaneal spurs. No acute fracture or dislocation within the right foot. Chronic gregory es within the proximal phalanx of the right first toe. Moderate degenerative changes. Bunion at the f irst MTP joint. The Lisfranc joint is intact. No radiopaque foreign bodies. Mild degenerative changes at the intertarsal joints IMPRESSION: 1. No fracture or dislocation within the right foot. 2. No radiopaque foreign bodies. 3. Chronic/degenerative changes as described above. ACT 112: Negative or not required by law. Electronically signed by: Del Blackburn M.D. 05/16/2022 2:47 PM
[2022-05-16 14:58] LABS: Basophils # (auto) 0.05 K/uL (0-0.2); Basophils % (auto) 0.4 %; Eosinophils # (auto) 0.07 K/uL (0-0.50); Eosinophils % (auto) 0.6 %; Immature Granulocytes # (auto) 0.03 K/uL (0.00-0.02); Immature Granulocytes % (auto) 0.2 %; Lymphocytes # (auto) 1.79 K/uL (1.2-3.4); Lymphocytes % (auto) 14.8 %; Mean Corpuscular Hemoglobin 29.1 pg (25.0-34.0); Mean Corpuscular Hgb Conc 34.3 g/dL (32.0-36.0); Mean Corpuscular Volume 84.7 fL (80.0-100.0); Mean Platelet Volume 10.2 fL (9.4-12.4); Monocytes % (auto) 7.5 %; Neutrophils # (auto) 9.23 K/uL (1.4-6.5); Neutrophils % (auto) 76.5 %; Platelet Count 356 K/uL (130-400); RDW Coefficient of Variation 12.5 % (11.5-14.5); RDW Standard Deviation 38.6 fL (36.4-46.3); Red Blood Count 4.13 M/uL (4.63-6.08); White Blood Count 12.07 K/ul (4.8-10.8)
[2022-05-16 15:34] LABS: Albumin Globulin Ratio 0.9 (0.9-2); Albumin Level 3.4 gm/dl (3.4-5.0); BUN Creatinine Ratio 16.8 (10-20); Calcium 8.7 mg/dl (8.5-10.1); Creatinine Clr Calc Pharmacy 57.6 ml/min; Est GFR (African American) 77.7 ml/min; Est GFR (Non-African American) 67.1 ml/min; Globulin 3.9 gm/dl (2.5-4.0); Potassium 3.1 mmol/L (3.5-5.1); Total Protein 7.3 gm/dl (6.0-8.3)
[2022-05-16] MEDS ORDERED: POTASSIUM CHLORIDE 10 MEQ TABCR PO STA (16:05)
--- NOTE | 2022-05-16 17:01 | History & Physical Report ---
Date of Service May 16, 2022 Assessment & Plan (1) Right foot ulcer: Plan: Cellulitis RLE Patient is 76 y/o M with PMH paroxysmal A. fib on Eliquis, DM 2, HTN, dyslipidemia, BPH, chronic hearing loss presented to ER for right foot wound x approximately two weeks after stepping on screw. Denies fever/chills Vitals stable, afebrile, WBC: 12. ESR: 55, CRP: 2.95, normal procalcitonin Lactate pending Xray right foot: No fracture or dislocation within the right foot. No radiopaque foreign bodies. Doppler RLE: No DVT Blood cultures pending Wound culture pending In ER given cipro, vancomycin Will change to Zosyn, vancomycin Since inflammatory markers elevated MRI foot pending to r/o osteomyelitis CBC, BMP in am Wound nurse consult Ortho consult Hypokalemia: K: 3.1 In ER given 40meq KCl po Replace and monitor Obtain magnesium lab BLE Edema: History Echo 11/2021 with EF: 60-65%, moderate aortic stenosis Lungs clear to auscultation Continue oral lasix, monitor volume status may need to further adjust DM type 2: A1c: 11 on 11/09/2021 Hold home Metformin Continue Lantus Novolog sliding scale per protocol A1c in am Paroxysmal atrial fibrillation: On Eliquis Continue Eliquis, metoprolol tartrate Hypertension: Stable Continue metoprolol tartrate Dyslipidemia: Continue atorvastatin BPH: Continue tamsulosin DVT Prophylaxis: On Eliquis Full Code as per discussion with pt Follows with Dr Maria for routine care Pt was seen and care coordinated with Dr Wyatt. See addendum History of Present Illness Chief Complaint: Right foot wound Primary Care Provider: James Maria DO Patient is 76 y/o M with PMH paroxysmal A. fib on Eliquis, DM 2, HTN, dyslipidemia, BPH, chronic hearing loss presented to ER for right foot wound x approximately two weeks. Patient is poor historian and is very hard of hearing. Reports approximately 2 weeks ago he unknowingly stepped on screw with right foot. States found it at the end of the day when he took his shoe off he had blood on bottom of foot and screw lodged into sole of shoe. He reports history neuropathy and does not have sensation to feet, therefore denies any foot pain. He is unaware of any drainage from foot. Denies known fever or chills. Patient reports blisters to bilateral hands in April 2022 as well as scabs to bilateral legs from scratching per pt. Patient was seen by [facility] on 04/25/22 and had noted scabs to RLE with redness to lower anterior and lateral leg with suspected cellulitis and was started on Keflex. Patient admits to not taking as directed and only took about half of course of treatment. Outpatient chart reviewed. Telemedicine visit on 05/02/22 and given doxycycline for 10 day course secondary to continued RLE erythema. Tdap ordered in 04/2022 outpatient. Patient not sure of his medications. Patient's reports he manages own medications and she thinks he usually takes as directed but isn't sure. Denies fever/chills, diaphoresis, N/V/D/C, ARBOLEDA, dizziness, syncope, vision changes, neck pain, CP, SOB, orthopnea, palpitations, cough, sore throat, choking, otalgia, rhinorrhea, abdominal pain, paresthesias, weakness, rashes, urinary symptoms. Allergies Allergy/AdvReac Type Severity Reaction Status Date / Time lisinopril Allergy Severe Swelling Verified 05/16/22 16:40 of Face/Lips/Tongue Home Medications Medication Instructions Recorded Confirmed Type atorvastatin 40 mg tablet 40 mg PO QAM 11/08/21 05/16/22 History tamsulosin 0.4 mg capsule 0.4 mg PO QAM 11/08/21 05/16/22 History apixaban 5 mg tablet (Eliquis) 5 mg PO BID #60 tabs 11/11/21 05/16/22 Rx furosemide 40 mg tablet 40 mg PO DAILY 05/16/22 05/16/22 History insulin aspart U-100 100 unit/mL 5 unit subcut TIDM 05/16/22 05/16/22 History (3 mL) subcutaneous pen (Novolog Flexpen U-100 Insulin aspart) insulin glargine 100 unit/mL (3 20 unit subcut HS 05/16/22 05/16/22 History mL) subcutaneous pen (Lantus Solostar U-100 Insulin) metformin 500 mg tablet,extended 1,000 mg PO QAM 05/16/22 05/16/22 History release 24 hr metoprolol tartrate 25 mg tablet 25 mg PO BID 05/16/22 05/16/22 History silver sulfadiazine 1 % topical 1 applic topical DAILY 05/16/22 05/16/22 History cream (SSD) Past Med/Surg History Medical History (Updated 05/16/22 @ 19:39 by Joseline Diggs PA-C) Atrial fibrillation with rapid ventricular response Bilateral edema of lower extremity BPH (benign prostatic hyperplasia) Diabetes mellitus, type II Dyslipidemia Dyspnea Edema of both legs Elevated brain natriuretic peptide (BNP) level Hearing loss Hypertension Leukocytosis Paroxysmal atrial fibrillation Surgical History H/O shoulder surgery S/P foot surgery, left Family History Brother Diabetes Social History Smoking Status: Former smoker Tobacco Type: Cigarettes Second Hand Exposure: No; Hx Alcohol Use: Yes Alcohol type: beer Hx Substance Use: No Preferred Language: Ivorian Communication Ability: Effective Data Processor Required: No Beliefs That Will Affect Care: None marital status: Current Living Situation: Spouse How many Children do You have: 3 Feels Safe at Home: Yes Assistive Devices: Glasses Review of Systems Review of Systems: All systems reviewed & are unremarkable except as noted in HPI & below Physical Exam Physical Exam: General: no distress, WDWN Head: normocephalic, atraumatic Eyes: conjunctiva non-injected, anicteric ENT: hard of hearing, normal inspection external ears, nose, mucous membranes moist Neck: supple, trachea midline Lungs: clear, no respiratory distress, no wheezing/rhonchi/rales CV: RRR, + murmur Abd: normal BS, soft, non-tender Ext: no cyanosis, no calf tenderness, RLE greater than LLE pitting edema, RLE: anterior quintana with slight erythema (reviewed outpatient chart and images and much decreased erythema of RLE from previous); Right Foot: +ulcer plantar surface mid foot with surrounding maceration, no purulent discharge Neuro: A&O x 3, no focal deficits noted, normal affect Skin: warm, dry, bilateral lower legs with scattered scabs Results & Data Results & Data ([facility]) Vital Signs (Past 12 Hours) Vital Signs Temp Pulse Pulse Resp BP BP Pulse Ox 05/16/22 13:55 75 18 130/63 95 05/16/22 13:23 36.4 C L 78 20 112/69 94 O2 Del Method 05/16/22 13:55 Room Air 05/16/22 13:23 Room Air Laboratory Results Short CBC 05/16/22 Range/Units 14:49 WBC 12.07 H (4.8-10.8) K/ul Hgb 12.0 L (14.0-18.0) g/dl Hct 35.0 L (40.1-51.0) % Plt Count 356 (130-400) K/uL BMP 05/16/22 14:49 Sodium 136 Potassium 3.1 L Chloride 95 L Carbon Dioxide 31 BUN 18 Creatinine 1.07 Glucose 198 H Calcium 8.7 Liver Function 05/16/22 Range/Units 14:49 Total Bilirubin 1.0 (0.2-1.0) mg/dl AST 14 (13-39) U/L ALT 12 (7-52) U/L Alkaline Phosphatase 69 (34-104) U/L Albumin 3.4 (3.4-5.0) gm/dl Diagnostic Findings Foot X-Ray 05/16/22 14:06 XR foot RT min 3V routine CLINICAL HISTORY: stepped on nail eval for foreign body or fracture within right foot COMPARISON STUDY: Right foot MRI 02/11/2017. FINDINGS: Diffuse soft tissue swelling within the right ankle and right foot. There are small plantar and posterior calcaneal spurs. No acute fracture or dislocation within the right foot. Chronic changes within the proximal phalanx of the right first toe. Moderate degenerative changes. Bunion at the first MTP joint. The Lisfranc joint is intact. No radiopaque foreign bodies. Mild degenerative changes at the intertarsal joints IMPRESSION: 1. No fracture or dislocation within the right foot. 2. No radiopaque foreign bodies. 3. Chronic/degenerative changes as described above. ACT 112: Negative or not required by law. Electronically signed by: Del Blackburn M.D. 05/16/2022 2:47 PM Venous Doppler Study 05/16/22 17:22 ULTRASOUND RIGHT LOWER EXTREMITY VENOUS CLINICAL HISTORY: Right leg swelling. Foot wound. COMPARISON STUDY: Bilateral lower extremity venous ultrasound dated 11/08/2021. TECHNIQUE: Real-time, grayscale, and color Doppler sonography of the deep veins of the right lower extremity was performed from the inguinal crease to the calf. Compression and augmentation were utilized. FINDINGS: There is no sonographic evidence of deep venous thrombosis identified in the right lower extremity. The common femoral, superficial femoral, and popliteal veins are patent and normally compressible. The greater saphenous vein and the profunda femoris vein at the junction with the common femoral vein are clear. The visualized calf veins are patent. A small popliteal cyst measures 3.1 x 0.7 x 1.1 cm. IMPRESSION: 1. There is no sonographic evidence of deep venous thrombosis identified in the right lower extremity. 2. Small popliteal cyst. ACT 112: Negative or not required by law. Electronically signed by: Chris Earl M.D. 05/16/2022 6:44 PM Code Status & VTE Plan VTE Prophylaxis Plan VTE Prophylaxis will be ordered: Yes Supervising Physician Co-Signing Physician Notes Patient was seen and examined independently at bedside. Chart reviewed. Case discussed with Joseline and agree with the documentation above. In summary, this is a 76 year old diabetic male, very hard of hearing, who was sent to the ED for evaluation of right leg cellulitis and right sole puncture wound from a screw. He has been on keflex followed by pastor as OP. On exam, he is lying comfortably in bed, AAO, hard of hearing, chest clear, heart sounds normal, abd benign, RLE swollen compared to the left, cellulitis on right quintana, right sole with puncture wound with surrounding maceration, no purulent drainage noted. Labs with mild leucocytosis, Xray right foot with no fracture or radiopaque foreign bodies. Agree with broad empiric antibiotics for now given his DM, and failure of OP ABx pending blood and wound culture results, check inflammatory markers ESR, CRP- if elevated, consider MRI right foot to r/o underlying OM. Check procal, lactate. Might need podiatry/ID eval pending clx and imaging results. Tailor antibiotics as more data available. Rest as per the note above.
[2022-05-16] MEDS ORDERED: POTASSIUM CHLORIDE 10 MEQ TABCR PO ONE (18:31)
[2022-05-16] MEDS ORDERED: DEXTROSE 50% 50 ML SYRINGE IV PRN (18:32)
[2022-05-16] MEDS ORDERED: GLUCOSE 40% GEL 15 GM TUBE PO PRN (18:32)
[2022-05-16] MEDS ORDERED: CARBOHYDRATES FOR HYPOGLYCEMIA PO PRN (18:32)
[2022-05-16] MEDS ORDERED: GLUCAGON FOR INJ 1 MG VIAL SQ PRN (18:32)
[2022-05-16] MEDS ORDERED: ACETAMINOPHEN 325 MG TAB PO PRN (18:32)
[2022-05-16] MEDS ORDERED: POLYETHYLENE (MIRALAX) 17 GM PACK PO PRN (18:32)
[2022-05-16] MEDS ORDERED: PROMETHAZINE HCL 6.25 MG in SODIUM CHLORIDE 0.9% 50 ML IV PRN (18:32)
[2022-05-16] MEDS ORDERED: GLUCOSE 10 TAB/TUBE PO PRN (18:32)
--- NOTE | 2022-05-16 18:46 | Ultrasound Report ---
ULTRASOUND RIGHT LOWER EXTREMITY VENOUS CLINICAL HISTORY: Right leg swelling. Foot wound. COMPARISON STUDY: Bilateral lower extremity venous ultrasound dated 11/08/2021. TECHNIQUE: Real-time, grayscale, and color Doppler sonography of the deep veins of the right lower ex tremity was performed from the inguinal crease to the calf. Compression and augmentation were utilize d. FINDINGS: There is no sonographic evidence of deep venous thrombosis identified in the right lower ex tremity. The common femoral, superficial femoral, and popliteal veins are patent and normally anita sible. The greater saphenous vein and the profunda femoris vein at the junction with the common femor al vein are clear. The visualized calf veins are patent. A small popliteal cyst measures 3.1 x 0.7 x 1.1 cm. IMPRESSION: 1. There is no sonographic evidence of deep venous thrombosis identified in the right lower extremity . 2. Small popliteal cyst. ACT 112: Negative or not required by law. Electronically signed by: Chris Earl M.D. 05/16/2022 6:44 PM
--- NOTE | 2022-05-16 19:25 | Pharmacy Report ---
Pharmacy PK ABX Note - Date of Service May 16, 2022 - Assessment and Plan Assessment 76 year old M receiving vancomycin/Zosyn for treatment of ft infection. Pertinent microbiologic data includes: N/A. Day # 1 of antimicrobial therapy. Plan Vancomycin * Loading dose: 1500 mg IVx 1 * Maintenance dose: 1000 mg IV every 12 hours * Regimen is predicted to achieve target AUC/DIAMANTE of 400-600 mg/L.hr * Trough to be ordered based upon duration and clinical picture Pharmacy will continue to follow and will adjust dose/frequency as necessary. Thank you. Pharmacy has transitioned to AUC monitoring for vancomycin. AUC/DIAMANTE is the preferred PK/PD target and is associated with decreased risk of nephrotoxicity compared to traditional trough targets.
[2022-05-16] MEDS ORDERED: PIPERACILLIN/TAZOBACTAM 3.375 GM in DEXTROSE 5% 100 ML IV ONE (20:00)
[2022-05-16] MEDS ORDERED: POTASSIUM CHLORIDE CRTAB 20 MEQ TABCR PO ONE (21:00)
[2022-05-16] MEDS: METOPROLOL TARTRATE 25 MG TAB PO SCH (21:33)
[2022-05-16] MEDS: LANTUS PER UNIT CHARGE SQ SCH (21:33)
[2022-05-16] MEDS: APIXABAN 5 MG TABLET PO SCH (21:33)
[2022-05-16] MEDS: INSULIN ASPART PER UNIT SC SCH (21:33)
[2022-05-16] MEDS ORDERED: VANCOMYCIN HCL 1,000 MG in SODIUM CHLORIDE 0.9% 500 ML IV SCH (23:00)
[2022-05-16] MEDS ORDERED: VANCOMYCIN HCL 1,000 MG in SODIUM CHLORIDE 0.9% 250 ML IV SCH (23:00)
--- NOTE | 2022-05-17 01:30 | Magnetic Resonance Report ---
MRI OF THE RIGHT ANKLE WITHOUT IV CONTRAST CLINICAL HISTORY: Right ankle wound. The patient stepped on a nail. Assess for osteomyelitis. COMPARISON STUDY: Radiographs of the right foot dated 05/16/2022. TECHNIQUE: MRI of the right ankle is performed utilizing various T1 and T2-weighted sequences in the axial, sagittal, and coronal planes. IV contrast was not administered for this examination. The exami nation is degraded by motion artifact. FINDINGS: There is a small wound along the plantar aspect of the hindfoot at the level of the anterio r calcaneus. Diffuse soft tissue edema is present around the foot and ankle with mild subcutaneous fl uid. No organized fluid collection is seen suggest abscess. There is no marrow signal abnormality vamsi ntified typical for osteomyelitis. There is no evidence of acute fracture. 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 There is a small defect in the medial band of the plantar fascia at the punct ure site, likely related to the puncture wound. The plantar fascia is otherwise intact. Moderate oste oarthritic change is seen throughout the ankle and hindfoot. Degenerative change is noted in the tibi otalar articulation with a trace joint effusion. Tiny osteochondral defects are noted in the talar do me. The Achilles tendon is normal in morphology and signal intensity. There is a split tear of the pe roneus brevis tendon. The peroneus longus tendon is intact. The anterior and posterior tendons are pr eserved. There is chronic tearing of the anterior tibiofibular and anterior talofibular ligaments, as well as the calcaneofibular ligament. The deltoid ligament appears intact. There is a large plantar heel spur. An os trigonum is incidentally noted. There is generalized atrophy of the regional muscula ture. Intramuscular edema is noted within the flexor musculature along the plantar aspect of the foot . IMPRESSION: 1. There is evidence of a puncture wound along the plantar aspect of the hindfoot. 2. Diffuse soft tissue edema is present throughout the foot and ankle. Correlate clinically for evide nce of cellulitis. No organized fluid collection is seen to indicate abscess. 3. There is no marrow signal abnormality to indicate osteomyelitis as clinically queried. 4. There is a nonspecific myositis of the flexor musculature along the plantar aspect of the hindfoot . 5. Chronic and degenerative changes as above. 6. Split thickness tear of the peroneus brevis tendon. 7. Additional findings as above. Electronically signed by: Chris Earl M.D. 05/17/2022 1:28 AM
[2022-05-17] MEDS: PIPERACILLIN/TAZOBACTAM 3.375 GM in DEXTROSE 5% 100 ML IV SCH ×3 (01:40→17:24)
[2022-05-17 06:53] LABS: Basophils # (auto) 0.08 K/uL (0-0.2); Basophils % (auto) 0.8 %; Eosinophils % (auto) 1.9 %; Hematocrit (blood only) 33.3 % (40.1-51.0); Hemoglobin 10.9 g/dl (14.0-18.0); Immature Granulocytes # (auto) 0.04 K/uL (0.00-0.02); Immature Granulocytes % (auto) 0.4 %; Lymphocytes # (auto) 2.37 K/uL (1.2-3.4); Lymphocytes % (auto) 22.7 %; Mean Corpuscular Hemoglobin 28.5 pg (25.0-34.0); Mean Corpuscular Hgb Conc 32.7 g/dL (32.0-36.0); Mean Corpuscular Volume 86.9 fL (80.0-100.0); Mean Platelet Volume 10.4 fL (9.4-12.4); Monocytes # (auto) 0.98 K/uL (0.24-0.82); Monocytes % (auto) 9.4 %; Neutrophils # (auto) 6.77 K/uL (1.4-6.5); Neutrophils % (auto) 64.8 %; Platelet Count 337 K/uL (130-400); RDW Coefficient of Variation 12.4 % (11.5-14.5); RDW Standard Deviation 39.5 fL (36.4-46.3); Red Blood Count 3.83 M/uL (4.63-6.08); White Blood Count 10.44 K/ul (4.8-10.8)
[2022-05-17 07:25] LABS: BUN Creatinine Ratio 18.8 (10-20); Calcium 7.9 mg/dl (8.5-10.1); Creatinine Clr Calc Pharmacy 59.1 ml/min; Est GFR (African American) 88.6 ml/min; Est GFR (Non-African American) 76.5 ml/min; Magnesium 1.5 mg/dl (1.7-2.4); Potassium 3.9 mmol/L (3.5-5.1)
[2022-05-17 07:46] LABS: Estimated Average Glucose 177 mg/dl; Hemoglobin A1C 7.8 % (4.5-5.6)
--- NOTE | 2022-05-17 08:27 | Progress Notes ---
DATE OF SERVICE: 05/17/2022. The patient is a 76-year-old gentleman with diabetes and neuropathy. He stepped on a screw 2 weeks ago, has a puncture wound on the bottom of the right foot. He was admitted by medicine. He has been afebrile. His vital signs are stable. White count initially was 12 but it is down to 10 now. Sed rate 55. C- reactive protein 2.95. Examination demonstrates that he has palpable dorsalis pedis and posterior tibial pulses. There is mild swelling of the foot and ankle. He can wiggle his toes and flex and extend the ankle with normal strength. There is a puncture wound on the plantar aspect of the foot with a 0.5 cm area of excoriation. There is no crepitation, subcutaneous emphysema, significant redness, swelling, or mass appreciated. There is no drainage and pain is mild. He reports being able to feel some discomfort now, but the foot is generally numb. Capillary refill less than 2 seconds. I reviewed x-rays, which show no evidence of fracture or dislocation. The MRI shows a puncture wound, but no abscess or osteomyelitis. Reports are noted. IMPRESSION: Puncture wound on the bottom of the right foot in a patient who has neuropathy and diabetes. cellulitis PLAN: His health history, medications, etc., are noted and reviewed. Fortunately, he does not require any orthopedic intervention. I would recommend that we apply a dressing to the foot to protect it. He can elevate, apply ice. He may weightbear as tolerated. He may eat. He does not require any orthopedic surgery. He can follow up with us in the office upon his discharge. A short course of antibiotics should suffice. He may continue on his blood thinner. Cultures are pending. Job ID: [id number] [facility]
[2022-05-17] MEDS ORDERED: TAMSULOSIN HCL 0.4 MG CAP PO SCH (09:00)
[2022-05-17] MEDS: APIXABAN 5 MG TABLET PO SCH ×2 (09:07→22:05)
[2022-05-17] MEDS: FUROSEMIDE 40 MG TAB PO SCH (09:07)
[2022-05-17] MEDS: METOPROLOL TARTRATE 25 MG TAB PO SCH ×2 (09:07→22:05)
[2022-05-17] MEDS: ATORVASTATIN 40 MG TAB PO SCH (09:07)
[2022-05-17] MEDS: INSULIN ASPART PER UNIT SC SCH ×4 (09:11→22:00)
[2022-05-17] MEDS: LANTUS PER UNIT CHARGE SQ SCH ×2 (09:12→22:00)
[2022-05-17] MEDS: MAGNESIUM SULFATE / D5W 1 GM/100 ML BAG IV SCH ×2 (10:52→12:41)
[2022-05-17] MEDS: VANCOMYCIN HCL 750 MG in SODIUM CHLORIDE 0.9% 250 ML IV SCH ×2 (11:03→22:08)
--- NOTE | 2022-05-17 22:10 | Hospitalist Progress Note ---
Date of Service May 17, 2022 Assessment & Plan (1) Right foot ulcer: Plan: Cellulitis RLE Patient is 76 y/o M with PMH paroxysmal A. fib on Eliquis, DM 2, HTN, dyslipidemia, BPH, chronic hearing loss presented to ER for right foot wound x approximately two weeks after stepping on screw. Vitals stable, afebrile, WBC: 12. ESR: 55, CRP: 2.95, normal procalcitonin Xray right foot: No fracture or dislocation within the right foot. No radiopaque foreign bodies. Doppler RLE: No DVT MRI right ankle showed evidence of a puncture wound along the plantar aspect of the hindfoot. Diffuse soft tissue edema is present throughout the foot and ankle. Blood cultures no growth so far Wound culture grew staph species Received IV Cipro and vancomycin in the ER Currently on IV Zosyn and Vanco Orthopedic on board recommended no orthopedic surgical intervention at this time Continue weightbearing as tolerated Dressing can be placed to protect left foot Follow-up with Ortho as an outpatient Continue monitor closely Hypokalemia: K: 3.1 on admission Potassium 3.9 this morning Continue monitor BLE Edema: History Echo 11/2021 with EF: 60-65%, moderate aortic stenosis Lungs clear to auscultation Continue oral lasix DM type 2: Most recent hemoglobin A1c 7.8 on07/18/22 Continue to hold home Metformin Continue Lantus and insulin sliding scale Continue monitor blood sugar Paroxysmal atrial fibrillation: Continue Eliquis, metoprolol tartrate stable Hypertension: Stable Continue metoprolol tartrate Dyslipidemia: Continue atorvastatin BPH: Continue tamsulosin DVT Prophylaxis: On Eliquis Full Code Admission and Anticipated Discharge Date Admission Date: May 16, 2022 Subjective Patient was seen and evaluated for follow-up of f right leg cellulitis and right sole puncture wound from a screw. Sitting on the edge of the bed with present eating his meal and watching TV He said pain is controlled under at the bottom of the right foot Denies any chest pain, palpitation, dizziness, shortness of breath. Review of Systems Review of Systems: All systems reviewed & are unremarkable except as noted in Subjective Physical Exam Physical Exam: General- No acute distress Head- atraumatic Eyes- PERRL, EOMI, ENT- +decrease hearing function Neck- supple, no JVD Lungs- clear to auscultation Heart- regular rhythm; no murmur Abdomen- normal bowel sounds, soft, nontender Extremities- no calf tenderness, +right foot swelling, +puncture at the bottom of right foot, No drainage Neuro- alert, oriented x 3; PERRL, EOMI; no facial palsy; no dysarthria Skin- warm & dry Results & Data Results & Data ([facility]) Vital Signs (Past 12 Hours) Vital Signs Temp Pulse Resp BP Pulse Ox O2 Del Method 05/17/22 16:00 36.3 C L 62 18 128/69 96 Room Air
[2022-05-17] MEDS ORDERED: Nursing to Pharmacy Communication SCH (22:30)
[2022-05-18] MEDS: PIPERACILLIN/TAZOBACTAM 3.375 GM in DEXTROSE 5% 100 ML IV SCH ×2 (03:05→10:03)
[2022-05-18 07:56] LABS: Hematocrit (blood only) 33.2 % (40.1-51.0); Mean Corpuscular Hemoglobin 29.2 pg (25.0-34.0); Mean Corpuscular Hgb Conc 33.1 g/dL (32.0-36.0); Mean Corpuscular Volume 88.1 fL (80.0-100.0); Mean Platelet Volume 10.3 fL (9.4-12.4); Platelet Count 302 K/uL (130-400); RDW Coefficient of Variation 12.6 % (11.5-14.5); Red Blood Count 3.77 M/uL (4.63-6.08); White Blood Count 9.28 K/ul (4.8-10.8)
[2022-05-18 08:18] LABS: BUN Creatinine Ratio 16.7 (10-20); Calcium 8.1 mg/dl (8.5-10.1); Creatinine Clr Calc Pharmacy 52.5 ml/min; Est GFR (African American) 76.9 ml/min; Est GFR (Non-African American) 66.3 ml/min; Magnesium 1.9 mg/dl (1.7-2.4); Potassium 3.7 mmol/L (3.5-5.1)
[2022-05-18] MEDS: METOPROLOL TARTRATE 25 MG TAB PO SCH (08:47)
[2022-05-18] MEDS: ATORVASTATIN 40 MG TAB PO SCH (08:47)
[2022-05-18] MEDS: APIXABAN 5 MG TABLET PO SCH (08:47)
[2022-05-18] MEDS: FUROSEMIDE 40 MG TAB PO SCH (08:47)
[2022-05-18] MEDS: LANTUS PER UNIT CHARGE SQ SCH (08:49)
[2022-05-18] MEDS: INSULIN ASPART PER UNIT SC SCH ×2 (08:49→12:56)
[2022-05-18] MEDS: VANCOMYCIN HCL 750 MG in SODIUM CHLORIDE 0.9% 250 ML IV SCH (11:17)
[2022-05-18] MEDS ORDERED: metroNIDAZOLE 500 MG TAB PO SCH (14:00)
[2022-05-18] MEDS ORDERED: cephALEXin 500 MG CAP PO SCH (14:00)
--- NOTE | 2022-05-18 15:36 | Discharge Summary ---
Date of Service May 18, 2022 Admission HPI Per Admitting Provider Patient is 76 y/o M with PMH paroxysmal A. fib on Eliquis, DM 2, HTN, dyslipidemia, BPH, chronic hearing loss presented to ER for right foot wound x approximately two weeks. Patient is poor historian and is very hard of hearing. Reports approximately 2 weeks ago he unknowingly stepped on screw with right foot. States found it at the end of the day when he took his shoe off he had blood on bottom of foot and screw lodged into sole of shoe. He reports history neuropathy and does not have sensation to feet, therefore denies any foot pain. He is unaware of any drainage from foot. Denies known fever or chills. Patient reports blisters to bilateral hands in April 2022 as well as scabs to bilateral legs from scratching per pt. Patient was seen by [facility] on 04/25/22 and had noted scabs to RLE with redness to lower anterior and lateral leg with suspected cellulitis and was started on Keflex. Patient admits to not taking as directed and only took about half of course of treatment. Outpatient chart reviewed. Telemedicine visit on 05/02/22 and given doxycycline for 10 day course secondary to continued RLE erythema. Tdap ordered in 04/2022 outpatient. Patient not sure of his medications. Patient's reports he manages own medications and she thinks he usually takes as directed but isn't sure. Denies fever/chills, diaphoresis, N/V/D/C, ARBOELDA, dizziness, syncope, vision changes, neck pain, CP, SOB, orthopnea, palpitations, cough, sore throat, choking, otalgia, rhinorrhea, abdominal pain, paresthesias, weakness, rashes, urinary symptoms. Admission Exam Per Admitting Provider General: no distress, WDWN Head: normocephalic, atraumatic Eyes: conjunctiva non-injected, anicteric ENT: hard of hearing, normal inspection external ears, nose, mucous membranes moist Neck: supple, trachea midline Lungs: clear, no respiratory distress, no wheezing/rhonchi/rales CV: RRR, + murmur Abd: normal BS, soft, non-tender Ext: no cyanosis, no calf tenderness, RLE greater than LLE pitting edema, RLE: anterior quintana with slight erythema (reviewed outpatient chart and images and much decreased erythema of RLE from previous); Right Foot: +ulcer plantar surface mid foot with surrounding maceration, no purulent discharge Neuro: A&O x 3, no focal deficits noted, normal affect Skin: warm, dry, bilateral lower legs with scattered scabs Principal Diagnosis Right foot cellulitis Hypokalemia: Diabetes Paroxysmal atrial fibrillation: Hypertension: Dyslipidemia: BPH Discharge Exam General- No acute distress Head- atraumatic Eyes- PERRL, EOMI, ENT- +decrease hearing function Neck- supple, no JVD Lungs- clear to auscultation Heart- regular rhythm; no murmur Abdomen- normal bowel sounds, soft, nontender Extremities- no calf tenderness, +right foot swelling, +puncture at the bottom of right foot, No drainage Neuro- alert, oriented x 3; PERRL, EOMI; no facial palsy; no dysarthria Skin- warm & dry Discharge Data Allergies Allergy/AdvReac Type Severity Reaction Status Date / Time lisinopril Allergy Severe Swelling Verified 05/16/22 16:40 of Face/Lips/Tongue Consultations 05/16/22 16:05 ED Decision to Admit Stat 05/17/22 08:00 Consult Orthopedic Surgery Routine Ordered Studies 05/16/22 17:22 US venous doppler LE RT Urgent 05/16/22 19:40 MR ankle RT wo con Routine MRI OF THE RIGHT ANKLE WITHOUT IV CONTRAST CLINICAL HISTORY: Right ankle wound. The patient stepped on a nail. Assess for osteomyelitis. COMPARISON STUDY: Radiographs of the right foot dated 05/16/2022. TECHNIQUE: MRI of the right ankle is performed utilizing various T1 and T2- weighted sequences in the axial, sagittal, and coronal planes. IV contrast was not administered for this examination. The examination is degraded by motion artifact. FINDINGS: There is a small wound along the plantar aspect of the hindfoot at the level of the anterior calcaneus. Diffuse soft tissue edema is present around the foot and ankle with mild subcutaneous fluid. No organized fluid collection is seen suggest abscess. There is no marrow signal abnormality identified typical for osteomyelitis. There is no evidence of acute fracture. 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 There is a small defect in the medial band of the plantar fascia at the puncture site, likely related to the puncture wound. The plantar fascia is otherwise intact. Moderate osteoarthritic change is seen throughout the ankle and hindfoot. Degenerative change is noted in the tibiotalar articulation with a trace joint effusion. Tiny osteochondral defects are noted in the talar dome. The Achilles tendon is normal in morphology and signal intensity. There is a split tear of the peroneus brevis tendon. The peroneus longus tendon is intact. The anterior and posterior tendons are preserved. There is chronic tearing of the anterior tibiofibular and anterior t alofibular ligaments, as well as the calcaneofibular ligament. The deltoid ligament appears intact. There is a large plantar heel spur. An os trigonum is incidentally noted. There is generalized atrophy of the regional musculature. Intramuscular edema is noted within the flexor musculature along the plantar aspect of the foot. IMPRESSION: 1. There is evidence of a puncture wound along the plantar aspect of the hindfoot. 2. Diffuse soft tissue edema is present throughout the foot and ankle. Correlate clinically for evidence of cellulitis. No organized fluid collection is seen to indicate abscess. 3. There is no marrow signal abnormality to indicate osteomyelitis as clinically queried. 4. There is a nonspecific myositis of the flexor musculature along the plantar aspect of the hindfoot. 5. Chronic and degenerative changes as above. 6. Split thickness tear of the peroneus brevis tendon. 7. Additional findings as above. Electronically signed by: Chris Earl M.D. 05/17/2022 1:28 AM Dictated:05/16/222148 Transcribed: 05/16/222148 ULTRASOUND RIGHT LOWER EXTREMITY VENOUS CLINICAL HISTORY: Right leg swelling. Foot wound. COMPARISON STUDY: Bilateral lower extremity venous ultrasound dated 11/08/2021. TECHNIQUE: Real-time, grayscale, and color Doppler sonography of the deep veins of the right lower extremity was performed from the inguinal crease to the calf. Compression and augmentation were utilized. FINDINGS: There is no sonographic evidence of deep venous thrombosis identified in the right lower extremity. The common femoral, superficial femoral, and popliteal veins are patent and normally compressible. The greater saphenous vein and the profunda femoris vein at the junction with the common femoral vein are clear. The visualized calf veins are patent. A small popliteal cyst measures 3.1 x 0.7 x 1.1 cm. IMPRESSION: 1. There is no sonographic evidence of deep venous thrombosis identified in the right lower extremity. 2. Small popliteal cyst. ACT 112: Negative or not required by law. Electronically signed by: Chris Earl M.D. 05/16/2022 6:44 PM Dictated:05/16/221843 Transcribed: 05/16/221843 XR foot RT min 3V routine CLINICAL HISTORY: stepped on nail eval for foreign body or fracture within right foot COMPARISON STUDY: Right foot MRI 02/11/2017. FINDINGS: Diffuse soft tissue swelling within the right ankle and right foot. There are small plantar and posterior calcaneal spurs. No acute fracture or dislocation within the right foot. Chronic changes within the proximal phalanx of the right first toe. Moderate degenerative changes. Bunion at the first MTP joint. The Lisfranc joint is intact. No radiopaque foreign bodies. Mild degenerative changes at the intertarsal joints IMPRESSION: 1. No fracture or dislocation within the right foot. 2. No radiopaque foreign bodies. 3. Chronic/degenerative changes as described above. ACT 112: Negative or not required by law. Electronically signed by: Del Blackburn M.D. 05/16/2022 2:47 PM Dictated:05/16/22 144 Transcribed: 05/16/221443 Hospital Course (1) Right foot ulcer: Cellulitis RLE Patient is 76 y/o M with PMH paroxysmal A. fib on Eliquis, DM 2, HTN, dyslipidemia, BPH, chronic hearing loss presented to ER for right foot wound x approximately two weeks after stepping on screw. Vitals stable, afebrile, WBC: 12. ESR: 55, CRP: 2.95, normal procalcitonin Xray right foot: No fracture or dislocation within the right foot. No radiopaque foreign bodies. Doppler RLE: No DVT MRI right ankle showed evidence of a puncture wound along the plantar aspect of the hindfoot. Diffuse soft tissue edema is present throughout the foot and ankle. Blood cultures no growth so far Wound culture grew staph species Received IV Cipro and vancomycin in the ER Currently on IV Zosyn and Vanco Will transition to Keflex 50mmg TID and Flagyl 500mg TID for 7 days Orthopedic on board recommended no orthopedic surgical intervention at this time Continue weightbearing as tolerated Dressing can be placed to protect left foot Follow-up with Ortho as an outpatient Continue monitor closely Hypokalemia: K: 3.1 on admission Potassium 3.9 this morning Continue monitor BLE Edema: History Echo 11/2021 with EF: 60-65%, moderate aortic stenosis Lungs clear to auscultation Continue oral lasix DM type 2: Most recent hemoglobin A1c 7.8 on07/18/22 Continue to hold home Metformin Continue Lantus and insulin sliding scale Continue monitor blood sugar Paroxysmal atrial fibrillation: Continue Eliquis, metoprolol tartrate stable Hypertension: Stable Continue metoprolol tartrate Dyslipidemia: Continue atorvastatin BPH: Continue tamsulosin DVT Prophylaxis: On Eliquis Full Code Total Time Total Time Spent Total Time Spent (In Minutes): 35 minutes Discharge Plan Discharge Items Patient Disposition: Home - Self-Care Reason For Visit: CELLULITIS Discharge Diagnosis: Right foot cellulitis Hypokalemia: Diabetes Paroxysmal atrial fibrillation: Hypertension: Dyslipidemia: BPH Activity: Resume your previous activity Non-emergency contact: Primary Care Provider Call non-emergency contact if: you have any medication questions, your symptoms worsen, your pain is unusual for you, your temperature is above 101, your wound has increased redness and your wound has increased drainage Follow-up/Referrals: Jeremiah Catalan MD [Surgeon] - James Maria DO [Primary Care Provider] - Diet: Carb Consistent or DM2 Addtl Attending Provider Instructions: Follow up with your primary care provider within 1 week (please call to schedule for the appointment ) Follow up with orthopedic Dr. Catalan in 2 to 3 weeks (please call to schedule for the appointment) Continue weightbearing as tolerated Dressing can be placed at the bottom of the left foot to protect it from dirt Continue daily wound care complete the course of the antibiotic Fall precaution Seek medical attention if wound worsening (drainage, redness, pain) or develop any fever Pending Studies at Discharge: No Stand-Alone Forms: [facility], Smoking Cessation Medications and DC Order Prescriptions: New cephalexin 500 mg Capsule 500 mg PO TID 7 Days Qty: 21 0RF metronidazole 500 mg Tablet 500 mg PO TID 7 Days Qty: 21 0RF Continued furosemide 40 mg tablet 40 mg PO DAILY silver sulfadiazine [SSD] 1 % cream 1 applic TOPICAL DAILY Rx Instructions: APPLY TO LEFT FOOT metformin 500 mg tablet extended release 24 hr 1,000 mg PO QAM insulin aspart U-100 [Novolog Flexpen U-100 Insulin] 100 unit/mL (3 mL) Insulin Pen 5 unit SUBCUT TIDM metoprolol tartrate 25 mg tablet 25 mg PO BID insulin glargine [Lantus Solostar U-100 Insulin] 100 unit/mL (3 mL) insulin pen 20 unit SUBCUT HS Rx Instructions: PER GMG 15 UNITS AT HS. atorvastatin 40 mg tablet 40 mg PO QAM tamsulosin 0.4 mg capsule 0.4 mg PO QAM Eliquis 5 mg tablet 5 mg PO BID Qty: 60 0RF Discharge Orders: Discharge Order (Routine); Ordered 05/18/22 Ordered By: Javan Keith Admission Data Admit Date/Time: 05/16/22 16:30 Attending Provider: Javan Keith Admit Provider: Derek Wyatt Primary Care Provider: James Maria Other Providers: Derek Wyatt ; Jeremiah Catalan Other Interventions: Discharge Summary Assessment (RN) Last Done: 05/18/22 15:53
[2022-05-18] MEDS ORDERED: TAMSULOSIN HCL 0.4 MG CAP PO SCH (21:00)
== END 2022-05-18 16:33 | disposition home or self-care (01) | DRG 605 ==
LOC: ED 13:07 → EDINP 16:30 → SUATTDRO 16:30 → 3N 19:21

== ENCOUNTER 2023-04-29 14:54 | Inpatient (IN) ==
[2023-04-29 16:04] LABS: Appearance Urine Cloudy (Clear); Bacteria Urine Automated Negative (Negative); Bilirubin Urine Negative (Negative); Blood Urine 2+ (Negative); Color Urine Yellow; Glucose Urine UA 3+ (Negative); Ketones Urine Negative (Negative); Leukocyte Esterase Urine 2+ (Negative); Nitrite Urine Negative (Negative); Protein Urine 1+ (Negative); RBC Urine Automated 0-4 /hpf (0-4); Specific Gravity Urine 1.024 (1.000-1.030); Urobilinogen Urine Negative (Negative); WBC Urine Automated >30 /hpf (0-5); pH Urine 5.5 (4.5-7.5)
[2023-04-29 16:16] LABS: Basophils # (auto) 0.04 K/uL (0-0.2); Basophils % (auto) 0.6 %; Hematocrit (blood only) 42.5 % (42.0-52.0); Hemoglobin 14.3 g/dl (14.0-18.0); Immature Granulocytes # (auto) 0.02 K/uL (0.01-0.20); Immature Granulocytes % (auto) 0.3 %; Lymphocytes # (auto) 0.42 K/uL (1.2-3.4); Lymphocytes % (auto) 6.6 %; Mean Corpuscular Hemoglobin 29.5 pg (25.0-34.0); Mean Corpuscular Hgb Conc 33.6 g/dL (32.0-36.0); Mean Corpuscular Volume 87.8 fL (80.0-100.0); Mean Platelet Volume 10.9 fL (9.4-12.4); Monocytes # (auto) 0.23 K/uL (0.11-0.59); Monocytes % (auto) 3.6 %; Neutrophils # (auto) 5.67 K/uL (1.40-6.50); Neutrophils % (auto) 88.9 %; Platelet Count 180 K/uL (130-400); RDW Coefficient of Variation 12.8 % (11.5-14.5); RDW Standard Deviation 41.1 fL (36.4-46.3); Red Blood Count 4.84 M/uL (4.70-6.10); White Blood Count 6.38 K/ul (4.8-10.8)
[2023-04-29 16:24] LABS: Alanine Aminotransferase 10 U/L (7-52); Albumin Globulin Ratio 0.9 (0.9-2); Albumin Level 3.6 gm/dl (3.4-5.0); Alkaline Phosphatase 76 U/L (34-104); Anion Gap 10 (3-11); Aspartate Aminotransferase 14 U/L (13-39); BUN Creatinine Ratio 18.6 (10-20); Bilirubin,Total 0.9 mg/dl (0.2-1.0); Blood Urea Nitrogen 24 mg/dl (6-23); Calcium 8.6 mg/dl (8.6-10.3); Carbon Dioxide 28 mmol/L (21-32); Chloride 91 mmol/L (98-107); Est GFR (African American) 61.6 ml/min; Est GFR (Non-African American) 53.1 ml/min; Globulin 3.8 gm/dl (2.5-4.0); Glucose 425 mg/dl (70-99(Fasting)); Potassium 4.2 mmol/L (3.5-5.1); Sodium 129 mmol/L (136-145); Total Protein 7.4 gm/dl (6.0-8.3)
[2023-04-29 16:29] LABS: INR 1.2 (0.9-1.1); Partial Thromboplastin Ratio 1.1; Partial Thromboplastin Time 30.8 Seconds (21.0-31.0); Prothrombin Time 12.9 Seconds (9.0-12.0)
[2023-04-29] MEDS ORDERED: cefTRIAXone SODIUM 2,000 MG/70 ML BAG IV STA (16:34)
[2023-04-29] MEDS ORDERED: NovoLIN-R INSULIN PER UNIT CHARGE IV STA (16:34)
[2023-04-29] MEDS ORDERED: SODIUM CHLORIDE 0.9% 1000ML 1,000 ML IV ONE ×2 (16:34→20:20)
--- NOTE | 2023-04-29 16:34 | Electrocardiogram Report ---
Test Reason : Blood Pressure : / mmHG Vent. Rate : 087 BPM Atrial Rate : 087 BPM P-R Int : 152 ms QRS Dur : 114 ms QT Int : 432 ms P-R-T Axes : 041 -62 -56 degrees QTc Int : 519 ms Sinus rhythm with Premature supraventricular complexes Pulmonary disease pattern Incomplete right bundle branch block Left anterior fascicular block Left ventricular hypertrophy ( R in aVL , Romhilt-Quevedo ) Cannot rule out Septal infarct (cited on or before 29-APR-2023) Prolonged QT Abnormal ECG When compared with ECG of 01-DEC-2021 12:10, Premature supraventricular complexes are now Present Anterior T wave inversion now present Confirmed by Chema Landa ([id number]) on 04/29/2023 4:33:47 PM Referred By: Confirmed By:Chema Landa
--- NOTE | 2023-04-29 16:37 | Emergency Department Note ---
Impression & Plan UTI (urinary tract infection), Acute hyperglycemia, Weakness ED Provider Note NAME: KATHARINE VANN AGE: 77 SEX: M : 1945 ARRIVES VIA: Walk-In INFORMANT: Patient ED PROVIDER(S): Norberto Cervantes DO CHIEF COMPLAINT: weakness HPI: Patient is a 77-year-old male who presents to the ER with a past medical history of memory issues, ulcer on the right heel, sent in by wound care clinic for patient being tired/weak and run down. Patient notes that he has not been feeling good since yesterday and had some vomiting yesterday. He had not eaten anything yesterday. Today he did not take his insulin because he was not eating. He does admit to eating part of a whopper from [employer] and drinking a little fluid. Denies any headache or change in vision. No chest pain or shortness of breath. No belly pain. Denies any dysuria, urgency, or frequency. No fevers. notes that the wound on the heel is improving. PAST MEDICAL HISTORY:See Below PAST SURGICAL HISTORY:See Below FAMILY HISTORY:See Below SOCIAL HISTORY:See Below HOME MEDICATIONS:See Below ALLERGIES:See Below VITALS:See Below PHYSICAL EXAMINATION: GENERAL: Sitting up in bed, alert, well appearing, well nourished, no distress, non-toxic EYE EXAM: normal conjunctiva. PERRL and EOM's grossly intact. OROPHARYNX:mucous membranes are moist NECK: supple, no nuchal rigidity, no adenopathy, non-tender LUNGS: Clear to auscultation. Normal chest wall mechanics HEART: no murmurs, S1 normal and S2 normal ABDOMEN: abdomen soft, non-tender, normo-active bowel sounds, no masses, no rebound or guarding. BACK: Back is symmetrical on inspection and there is no deformity, no midline tenderness, no CVA tenderness. SKIN: Wound at the base of the right heel with no surrounding erythema or induration. UPPER EXTREMITIES: upper extremities are grossly normal. LOWER EXTREMITIES: No pitting edema. NEURO EXAM: Normal sensorium, cranial nerves II-XII grossly intact, normal speech, no gross weakness of arms, no gross weakness of legs. MEDICAL DECISION MAKING: Patient is a 77-year-old male who presents ER for above-stated complaint. IV was established blood work was obtained. External records were reviewed. Labs show no significant leukocytosis or anemia. INR was unremarkable. BMP with a mild hyponatremia at 129 which is pseudo secondary to the elevated glucose at 425. Patient was given 8 units as well as IV fluids. Close trend down to 2-3. LFTs bilirubin was unremarkable. TSH was unremarkable. UA showed leuks and whites with only 10-20 epithelial cells. Did show a fair amount of urinary retention. Hanna was ordered as a CT abdomen pelvis showed no other acute pathology. Patient was updated at bedside. Discussed with the at bedside as well as majority of history was obtained from her. X-ray of the right foot was unremarkable. He was given 2 g of Rocephin and admitted to the hospital service after discussion with them for further evaluation management and treatment. Triage Nursing notes reviewed. Limited review of prior medical records performed Vital Signs: reviewed and remarkable for no significant abnormalities Differential diagnosis: Infection, dehydration, metabolic abnormality, hypo/hyperglycemia, electrolyte disturbance, anemia, hypoxia, cardiac sources, intracerebral event, toxicologic, neurologic, as well as other pathologies. ER treatment provided: See below Diagnostics interpreted by me include EKG and cardiac monitoring as listed below: -Cardiac Monitoring: An order was placed for continuous cardiac monitoring. The monitor shows a rate of 90 with sinus rhythm. -ECG: Sinus rhythm rate of 61 Left axis right bundle branch block QTc 455 -Laboratory studies:Interpreted by me as stated above in MDM and shown below. Imaging studies: Xrays: As interpreted by me: Portable AP upright 1 view of the chest shows no focal infiltrate X-ray of the calcaneus was unremarkable CTs show: CT of the abdomen pelvis was unremarkable Consultation(s): As described in MDM Procedures:none Critical Care: None Past Med/Surg History Medical History Abnormal urinalysis Acute hyperglycemia Acute hypokalemia Atrial fibrillation with rapid ventricular response Bilateral edema of lower extremity BPH (benign prostatic hyperplasia) Cellulitis D-dimer, elevated Diabetes mellitus, type II DM type 2 (diabetes mellitus, type 2) DVT prophylaxis Dyslipidemia Dyspnea Edema of both legs Elevated brain natriuretic peptide (BNP) level Hearing loss Heart failure with preserved ejection fraction HTN (hypertension) Hypertension Hypokalemia Leukocytosis Moderate aortic stenosis Paroxysmal atrial fibrillation Paroxysmal atrial fibrillation Premature atrial complexes Puncture wound of foot, right Right foot infection Volume overload Surgical History H/O shoulder surgery S/P foot surgery, left Family History Brother Diabetes Social History Smoking Status: Former smoker Tobacco Type: Cigarettes Second Hand Exposure: No; Do You Dip or Chew Tobacco: No (quit in 1979); Hx Alcohol Use: Yes Alcohol type: beer Hx Substance Use: No Preferred Language: Romanian Communication Ability: Effective Communication Ability Comment: pt very hard of hearing Nitroglycerin Nitrator Operator Batch Required: No Beliefs That Will Affect Care: None marital status: Current Living Situation: Spouse How many Children do You have: 3 Feels Safe at Home: Yes Assistive Devices: Cane and Glasses Allergies Allergies Allergy/AdvReac Type Severity Reaction Status Date / Time lisinopril Allergy Severe Swelling Verified 04/29/23 14:12 of Face/Lips/Tongue Home Meds Home Medications Medication Instructions Recorded Confirmed atorvastatin 40 mg tablet 40 mg PO QAM 11/08/21 04/29/23 tamsulosin 0.4 mg capsule 0.4 mg PO QAM 11/08/21 04/29/23 insulin aspart U-100 100 unit/mL 5 unit subcut TIDM 05/16/22 04/29/23 (3 mL) subcutaneous pen (Novolog FlexPen U-100 Insulin aspart) insulin glargine 100 unit/mL (3 20 unit subcut HS 05/16/22 04/29/23 mL) subcutaneous pen (Lantus Solostar U-100 Insulin) metformin 500 mg tablet,extended 1,000 mg PO QAM 05/16/22 04/29/23 release 24 hr metoprolol tartrate 25 mg tablet 25 mg PO BID 05/16/22 04/29/23 furosemide 40 mg tablet 0 mg PO QAM 11/20/22 04/29/23 furosemide 40 mg tablet 0 mg PO QPM 11/20/22 04/29/23 Previous Rx's Medication Instructions Recorded apixaban 5 mg tablet (Eliquis) 5 mg PO BID #60 tabs 11/11/21 Results & Data (ED) Vital Signs Vital Signs - 24 hr 04/29/23 14:58 04/29/23 15:51 04/29/23 15:53 Temperature 36.4 C L Temperature Source Temporal Artery Scan Pulse Rate 83 87 Pulse Rate [Apical] 85 Respiratory Rate 26 H 24 Respiratory Depth Normal Blood Pressure 138/77 Blood Pressure [Right Arm] 126/79 Blood Pressure Mean 97 Blood Pressure Mean [Right Arm] 94 Blood Pressure Position Sitting Pulse Oximetry 96 96 Oxygen Delivery Method Room Air Sepsis Recent Fever Within 48 Hours No Sepsis New/Unexplained Change in Mental Status No Sepsis Action Taken by Nursing No Action Required 04/29/23 17:58 04/29/23 20:04 Temperature Temperature Source Pulse Rate 87 Pulse Rate [Apical] 90 Respiratory Rate 20 Respiratory Depth Blood Pressure Blood Pressure [Right Arm] 133/81 Blood Pressure Mean Blood Pressure Mean [Right Arm] 98 Blood Pressure Position Pulse Oximetry 95 Oxygen Delivery Method Room Air Sepsis Recent Fever Within 48 Hours Sepsis New/Unexplained Change in Mental Status Sepsis Action Taken by Nursing Laboratory Data 04/29/23 15:43 04/29/23 15:43 Lab Results 04/29/23 04/29/23 04/29/23 Range/Units 15:33 15:43 15:43 WBC 6.38 (4.8-10.8) K/ul RBC 4.84 (4.70-6.10) M/uL Hgb 14.3 (14.0-18.0) g/dl Hct 42.5 (42.0-52.0) % MCV 87.8 (80.0-100.0) fL MCH 29.5 (25.0-34.0) pg MCHC 33.6 (32.0-36.0) g/dL RDW Std Deviation 41.1 (36.4-46.3) fL RDW Coeff of Scott 12.8 (11.5-14.5) % Plt Count 180 (130-400) K/uL MPV 10.9 (9.4-12.4) fL Immature Gran % (Auto) 0.3 % Neut % (Auto) 88.9 % Lymph % (Auto) 6.6 % P[place] % (Auto) 3.6 % Eos % (Auto) 0.0 % Baso % (Auto) 0.6 % Neut # (Auto) 5.67 (1.40-6.50) K/uL Lymph # (Auto) 0.42 L (1.2-3.4) K/uL [place] # (Auto) 0.23 (0.11-0.59) K/uL Eos # (Auto) 0.00 (0-0.50) K/uL Baso # (Auto) 0.04 (0-0.2) K/uL Immature Gran # (Auto) 0.02 (0.01-0.20) K/uL PT 12.9 H (9.0-12.0) Seconds INR 1.2 H (0.9-1.1) APTT 30.8 (21.0-31.0) Seconds PTT Ratio 1.1 Sodium (136-145) mmol/L Potassium (3.5-5.1) mmol/L Chloride (98-107) mmol/L Carbon Dioxide (21-32) mmol/L Anion Gap (3-11) BUN (6-23) mg/dl Creatinine (0.6-1.4) mg/dl Est Cr Clr Drug Dosing Est GFR ( Amer) ml/min Est GFR (Non-Af Amer) ml/min BUN/Creatinine Ratio (10-20) Glucose (70-99(Fasting)) mg/dl POC Glucose (70-99) mg/dl Calcium (8.6-10.3) mg/dl Magnesium (1.7-2.4) mg/dl Total Bilirubin (0.2-1.0) mg/dl AST (13-39) U/L ALT (7-52) U/L Alkaline Phosphatase (34-104) U/L Total Protein (6.0-8.3) gm/dl Albumin (3.4-5.0) gm/dl Globulin (2.5-4.0) gm/dl Albumin/Globulin Ratio (0.9-2) TSH (0.300-4.500) uIu/ml Urine Color Urine Appearance (Clear) Urine pH (4.5-7.5) Ur Specific [place] (1.000-1.030) Urine Protein (Negative) Urine Glucose (UA) (Negative) Urine Ketones (Negative) Urine Blood (Negative) Urine Nitrite (Negative) Urine Bilirubin (Negative) Urine Urobilinogen (Negative) Ur Leukocyte Esterase (Negative) Urine WBC (Auto) (0-5) /hpf Urine RBC (Auto) (0-4) /hpf U Hyaline Cast (Auto) (0-5) /lpf U Epithel Cells (Auto) (0-5) /lpf Urine Bacteria (Auto) (Negative) Urine Yeast SARS-CoV-2 (PCR) NEGATIVE (Negative) Influenza Type A (PCR) Negative (Neg) Influenza Type B (PCR) Negative (Neg) RSV (RT-PCR) Negative (Neg) 04/29/23 04/29/23 04/29/23 Range/Units 15:43 15:43 15:43 WBC (4.8-10.8) K/ul RBC (4.70-6.10) M/uL Hgb (14.0-18.0) g/dl Hct (42.0-52.0) % MCV (80.0-100.0) fL MCH (25.0-34.0) pg MCHC (32.0-36.0) g/dL RDW Std Deviation (36.4-46.3) fL RDW Coeff of Scott (11.5-14.5) % Plt Count (130-400) K/uL MPV (9.4-12.4) fL Immature Gran % (Auto) % Neut % (Auto) % Lymph % (Auto) % P[place] % (Auto) % Eos % (Auto) % Baso % (Auto) % Neut # (Auto) (1.40-6.50) K/uL Lymph # (Auto) (1.2-3.4) K/uL [place] # (Auto) (0.11-0.59) K/uL Eos # (Auto) (0-0.50) K/uL Baso # (Auto) (0-0.2) K/uL Immature Gran # (Auto) (0.01-0.20) K/uL PT (9.0-12.0) Seconds INR (0.9-1.1) APTT (21.0-31.0) Seconds PTT Ratio Sodium 129 L (136-145) mmol/L Potassium 4.2 (3.5-5.1) mmol/L Chloride 91 L (98-107) mmol/L Carbon Dioxide 28 (21-32) mmol/L Anion Gap 10 (3-11) BUN 24 H (6-23) mg/dl Creatinine 1.29 (0.6-1.4) mg/dl Est Cr Clr Drug Dosing Not Reportable Est GFR ( Amer) 61.6 ml/min Est GFR (Non-Af Amer) 53.1 ml/min BUN/Creatinine Ratio 18.6 (10-20) Glucose 425 H* (70-99(Fasting)) mg/dl POC Glucose (70-99) mg/dl Calcium 8.6 (8.6-10.3) mg/dl Magnesium 1.7 (1.7-2.4) mg/dl Total Bilirubin 0.9 (0.2-1.0) mg/dl AST 14 (13-39) U/L ALT 10 (7-52) U/L Alkaline Phosphatase 76 (34-104) U/L Total Protein 7.4 (6.0-8.3) gm/dl Albumin 3.6 (3.4-5.0) gm/dl Globulin 3.8 (2.5-4.0) gm/dl Albumin/Globulin Ratio 0.9 (0.9-2) TSH 1.379 (0.300-4.500) uIu/ml Urine Color Yellow Urine Appearance Cloudy A (Clear) Urine pH 5.5 (4.5-7.5) Ur Specific [place] 1.024 (1.000-1.030) Urine Protein 1+ H (Negative) Urine Glucose (UA) 3+ H (Negative) Urine Ketones Negative (Negative) Urine Blood 2+ H (Negative) Urine Nitrite Negative (Negative) Urine Bilirubin Negative (Negative) Urine Urobilinogen Negative (Negative) Ur Leukocyte Esterase 2+ H (Negative) Urine WBC (Auto) >30 H (0-5) /hpf Urine RBC (Auto) 0-4 (0-4) /hpf U Hyaline Cast (Auto) 1-5 (0-5) /lpf U Epithel Cells (Auto) 10-20 H (0-5) /lpf Urine Bacteria (Auto) Negative (Negative) Urine Yeast Not Reportable SARS-CoV-2 (PCR) (Negative) Influenza Type A (PCR) (Neg) Influenza Type B (PCR) (Neg) RSV (RT-PCR) (Neg) 04/29/23 04/29/23 Range/Units 16:39 19:02 WBC (4.8-10.8) K/ul RBC (4.70-6.10) M/uL Hgb (14.0-18.0) g/dl Hct (42.0-52.0) % MCV (80.0-100.0) fL MCH (25.0-34.0) pg MCHC (32.0-36.0) g/dL RDW Std Deviation (36.4-46.3) fL RDW Coeff of Scott (11.5-14.5) % Plt Count (130-400) K/uL MPV (9.4-12.4) fL Immature Gran % (Auto) % Neut % (Auto) % Lymph % (Auto) % [place] % (Auto) % Eos % (Auto) % Baso % (Auto) % Neut # (Auto) (1.40-6.50) K/uL Lymph # (Auto) (1.2-3.4) K/uL [place] # (Auto) (0.11-0.59) K/uL Eos # (Auto) (0-0.50) K/uL Baso # (Auto) (0-0.2) K/uL Immature Gran # (Auto) (0.01-0.20) K/uL PT (9.0-12.0) Seconds INR (0.9-1.1) APTT (21.0-31.0) Seconds PTT Ratio Sodium (136-145) mmol/L Potassium (3.5-5.1) mmol/L Chloride (98-107) mmol/L Carbon Dioxide (21-32) mmol/L Anion Gap (3-11) BUN (6-23) mg/dl Creatinine (0.6-1.4) mg/dl Est Cr Clr Drug Dosing Est GFR ( Amer) ml/min Est GFR (Non-Af Amer) ml/min BUN/Creatinine Ratio (10-20) Glucose (70-99(Fasting)) mg/dl POC Glucose 368 H* 223 H (70-99) mg/dl Calcium (8.6-10.3) mg/dl Magnesium (1.7-2.4) mg/dl Total Bilirubin (0.2-1.0) mg/dl AST (13-39) U/L ALT (7-52) U/L Alkaline Phosphatase (34-104) U/L Total Protein (6.0-8.3) gm/dl Albumin (3.4-5.0) gm/dl Globulin (2.5-4.0) gm/dl Albumin/Globulin Ratio (0.9-2) TSH (0.300-4.500) uIu/ml Urine Color Urine Appearance (Clear) Urine pH (4.5-7.5) Ur Specific [place] (1.000-1.030) Urine Protein (Negative) Urine Glucose (UA) (Negative) Urine Ketones (Negative) Urine Blood (Negative) Urine Nitrite (Negative) Urine Bilirubin (Negative) Urine Urobilinogen (Negative) Ur Leukocyte Esterase (Negative) Urine WBC (Auto) (0-5) /hpf Urine RBC (Auto) (0-4) /hpf U Hyaline Cast (Auto) (0-5) /lpf U Epithel Cells (Auto) (0-5) /lpf Urine Bacteria (Auto) (Negative) Urine Yeast SARS-CoV-2 (PCR) (Negative) Influenza Type A (PCR) (Neg) Influenza Type B (PCR) (Neg) RSV (RT-PCR) (Neg) Administered Medications Discontinued Medications Ceftriaxone Sodium (Rocephin) 2,000 mg in 70 mls @ 140 mls/hr IV NOW STA Stop: 04/29/23 17:03 Last Infusion: 04/29/23 17:35 Dose: 0 mls/hr Documented By: Admin: 04/29/23 16:49 Dose: 140 mls/hr Documented By: Sodium Chloride (Nss 1000ml) 1,000 mls @ 999 mls/hr IV .Q1H1M ONE Stop: 04/29/23 17:34 Last Infusion: 04/29/23 17:50 Dose: 0 mls/hr Documented By: JEAN PAUL Admin: 04/29/23 16:50 Dose: 999 mls/hr Documented By: Cefepime HCl (Maxipime) 2,000 mg in 20 mls @ 5 mls/min IV NOW STA; Protocol Stop: 04/29/23 19:39 Last Admin: 04/29/23 20:05 Dose: 5 mls/min Documented By: DANICA Insulin Glargine (Lantus Per Unit Charge) 30 units SQ NOW STA Stop: 04/29/23 19:39 Last Admin: 04/29/23 20:06 Dose: 30 units Documented By: DANICA Co-signed By: Insulin Human Regular (Novolin-R Insulin Per Unit Charge) 8 units IV NOW STA Stop: 04/29/23 16:35 Last Admin: 04/29/23 16:49 Dose: 8 units Documented By: Co-signed By: JOSEPHINE Ioversol (Optiray 320 100ml) 93 ml IV ONCE ONE Stop: 04/29/23 17:52 Last Admin: 04/29/23 17:51 Dose: 93 ml Documented By: BARBARA Imaging Data Radiologist's Impression: Chest X-Ray 04/29/23 15:04 XR chest 1V not portable CLINICAL HISTORY: lethargy TECHNIQUE: Single frontal radiograph of the chest was obtained. Comparison: Comparison is made to chest radiograph 11/30/2021 FINDINGS: No lines and tubes are seen. Cardiomegaly is noted. The lungs are clear. No evidence of pleural effusion or pneumothorax. IMPRESSION: No acute chest disease. ACT 112: Negative or not required by law. Electronically signed by: Anderson Serra M.D. 04/29/2023 5:20 PM Abdomen/Pelvis CT 04/29/23 16:34 CT abd pelvis IV con only CLINICAL HISTORY: abd pain vomiting TECHNIQUE: Helical axial images of the abdomen and pelvis were obtained and displayed. Automated dose lowering techniques and/or adjustment according to patient size were utilized for this exam. This exam was performed with intravenous contrast. CT DOSE: 1549.33 mGy.cm COMPARISON: None available at the time of this dictation. FINDINGS: Lower chest: Bibasilar atelectasis versus scarring is seen. Liver: Unremarkable. No focal lesions are seen. Gallbladder and biliary tree: No calcified gallstones. Normal caliber wall. No intra- or extrahepatic biliary ductal dilation. Pancreas: Unremarkable, no focal lesions. Spleen: Unremarkable. Adrenals: Unremarkable. Kidneys and ureters: Left or the right hydronephrosis and hydroureter are seen. Bladder: Diffuse homogeneous wall thickening is seen. Reproductive organs: Unremarkable. Bowel: The appendix is normal. There is a small hiatal hernia. Lymph nodes Retroperitoneal: Unremarkable. Pelvic: Unremarkable. Mesenteric: Unremarkable. Peritoneum: Normal. Vessels: Atherosclerotic calcifications are seen. Abdominal wall: Right fat-containing inguinal hernia. Bones: Degenerative changes in the visualized spine. Benign-appearing chondroid lesion is seen in the left intertrochanteric femur. 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 No acute abnormality. ACT 112: Negative or not required by law. Electronically signed by: Anderson Serra M.D. 04/29/2023 6:33 PM Calcaneus X-Ray 04/29/23 16:34 XR calcaneus RT min 2V CLINICAL HISTORY: r heel wound TECHNIQUE: 2 views of the right calcaneus were obtained. Comparison: None available at the time of this dictation. FINDINGS: No evidence of bony erosion is seen. The alignment is anatomic. The joint spaces are well preserved. Soft tissue swelling is seen. IMPRESSION: No radiographic evidence of osteomyelitis. If clinical concern remains, MRI is a more sensitive modality. ACT 112: Negative or not required by law. Electronically signed by: Anderson Serra M.D. 04/29/2023 5:18 PM Discharge Plan Visit Data Chief Complaint: Vomiting Stated Complaint: ISNT EATING,VOMITING,SHAKING ED Provider: Norberto Cervantes Discharge Problem: UTI (urinary tract infection), Acute hyperglycemia, Weakness Forms Stand Alone Forms: [facility] Prescriptions Prescriptions: No Action furosemide 40 mg tablet 0 mg PO QPM Rx Instructions: Patient only taking 40mg at night if needed for swelling metformin 500 mg tablet extended release 24 hr 1,000 mg PO QAM insulin aspart U-100 [Novolog FlexPen U-100 Insulin] 100 unit/mL (3 mL) Insulin Pen 5 unit SUBCUT TIDM metoprolol tartrate 25 mg tablet 25 mg PO BID insulin glargine [Lantus Solostar U-100 Insulin] 100 unit/mL (3 mL) insulin pen 20 unit SUBCUT HS Rx Instructions: PER [facility]G 15 UNITS AT HS. furosemide 40 mg tablet 0 mg PO QAM Rx Instructions: Pt only taking 80mg by mouth in the morning as needed for swelling atorvastatin 40 mg tablet 40 mg PO QAM tamsulosin 0.4 mg capsule 0.4 mg PO QAM Eliquis 5 mg tablet 5 mg PO BID Qty: 60 0RF Referrals Referrals: James Maria DO [Primary Care Provider] -
[2023-04-29 16:43] LABS: Influenza A virus by PCR Negative (Neg); Influenza B virus by PCR Negative (Neg); RSV by PCR Negative (Neg); SARS CoV2 RNA(COVID-19) Ceph NEGATIVE (Negative)
--- NOTE | 2023-04-29 17:20 | XRay Report ---
XR calcaneus RT min 2V CLINICAL HISTORY: r heel wound TECHNIQUE: 2 views of the right calcaneus were obtained. Comparison: None available at the time of this dictation. FINDINGS: No evidence of bony erosion is seen. The alignment is anatomic. The joint spaces are well preserved. Soft tissue swelling is seen. IMPRESSION: No radiographic evidence of osteomyelitis. If clinical concern remains, MRI is a more sensitive modal ity. ACT 112: Negative or not required by law. Electronically signed by: Anderson Serra M.D. 04/29/2023 5:18 PM
--- NOTE | 2023-04-29 17:22 | XRay Report ---
XR chest 1V not portable CLINICAL HISTORY: lethargy TECHNIQUE: Single frontal radiograph of the chest was obtained. Comparison: Comparison is made to chest radiograph 11/30/2021 FINDINGS: No lines and tubes are seen. Cardiomegaly is noted. The lungs are clear. No evidence of pleural effus ion or pneumothorax. IMPRESSION: No acute chest disease. ACT 112: Negative or not required by law. Electronically signed by: Anderson Serra M.D. 04/29/2023 5:20 PM
[2023-04-29] MEDS ORDERED: OPTIRAY 320 100ml IV ONE (17:51)
--- NOTE | 2023-04-29 18:35 | CT Scan Report ---
CT abd pelvis IV con only CLINICAL HISTORY: abd pain vomiting TECHNIQUE: Helical axial images of the abdomen and pelvis were obtained and displayed. Automated dose lowering techniques and/or adjustment according to patient size were utilized for this exam. This e xam was performed with intravenous contrast. CT DOSE: 1549.33 mGy.cm COMPARISON: None available at the time of this dictation. FINDINGS: Lower chest: Bibasilar atelectasis versus scarring is seen. Liver: Unremarkable. No focal lesions are seen. Gallbladder and biliary tree: No calcified gallstones. Normal caliber wall. No intra- or extrahepatic biliary ductal dilation. Pancreas: Unremarkable, no focal lesions. Spleen: Unremarkable. Adrenals: Unremarkable. Kidneys and ureters: Left or the right hydronephrosis and hydroureter are seen. Bladder: Diffuse homogeneous wall thickening is seen. Reproductive organs: Unremarkable. Bowel: The appendix is normal. There is a small hiatal hernia. Lymph nodes Retroperitoneal: Unremarkable. Pelvic: Unremarkable. Mesenteric: Unremarkable. Peritoneum: Normal. Vessels: Atherosclerotic calcifications are seen. Abdominal wall: Right fat-containing inguinal hernia. Bones: Degenerative changes in the visualized spine. Benign-appearing chondroid lesion is seen in the left intertrochanteric femur. 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 No acute abnormality. ACT 112: Negative or not required by law. Electronically signed by: Anderson Serra M.D. 04/29/2023 6:33 PM
[2023-04-29] MEDS ORDERED: CEFEPIME 2,000 MG/20 ML VIAL IV STA (19:36)
[2023-04-29] MEDS ORDERED: LANTUS PER UNIT CHARGE SQ STA (19:38)
[2023-04-29 20:06] LABS: Magnesium 1.7 mg/dl (1.7-2.4)
--- NOTE | 2023-04-29 20:11 | History & Physical Report ---
Date of Service April 29, 2023 Assessment & Plan (1) Weakness: Plan: Multifactorial: Complicated UTI secondary to obstructive uropathy (bladder outlet obstruction on CT), history of BPH, no sepsis for now hyperglycemia secondary to medication noncompliance, DM2 insulin requiring suboptimal control as of recent hemoglobin A1c of 9.2 last December 2022 chronic diastolic heart failure (EF 60%, TTE 2022), patient on the dry side PAF, patient NSR on Eliquis moderate hypertension, stable hyperlipidemia on statin Rx chronic anemia, hemoglobin better than baseline secondary to hemoconcentration severe hearing loss history chronic LE venous ulcers, stable as per recent wound care center visit Irrational thoughts/behavior as per rule out delusional disorder Possible functional disability, patient does not think patient can live independently. past tobacco abuse Medical telemetry CS, Cefepime Continue Hanna catheter Urology consult Re: Bladder outlet obstruction Basal bolus insulin, ISS BG goal 1 10-1 40, carb count coverage, update hemoglobin A1c Gentle IV hydration for now given valvular heart disease Psych consult as per patient request Re: Irrational thoughts/behavior, concern for delusional disorder PT OT eval DVT prophylaxis. Eliquis DNR as per patient's prior wishes as per . Patient requesting updates providers. Zabrina Farhana Sebastian, contact #[phone]. Text document was generated using [employer] voice recognition software. It may contain grammatical or spelling errors. Kindly contact undersigned for clarification of any documentation item in question. History of Present Illness Chief Complaint: Fatigue, weakness as per records Primary Care Provider: James Maria DO History obtained from patient, family, and records. History from patient secondary to severe hearing impairment. Medical history significant for chronic diastolic heart failure (EF 60%, TTE 2022), A-fib on Eliquis, moderate , hypertension, hyperlipidemia, BPH, chronic anemia (baseline hemoglobin of 11), severe hearing loss, history chronic LE venous ulcers, hoarding behavior as per records/hx of obsessional thoughts/acts as per records, past tobacco abuse Last confinement May 2022 for right foot cellulitis. Patient seen at [facility] in [facility] last month for malaise and fatigue. Patient returning to [facility] from [employer] [place] at that time. Patient noted to be hyperglycemic, BSG 300s. Patient has been living in his car on a family property with limited access to electricity and running water as per the last few months. Patient concerned about patient's irrational behavior. Patient contemplating on asking patient's family doctor to have a psychiatrist evaluate patient. Patient not feeling well since last week. Tired no appetite, with emesis. Not taking insulin because of poor appetite. Patient denies headache, chest pain, SOB, abdominal pain. 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 Patient directed to ER for evaluation. BSG 400s upon arrival at the ER. Hanna catheter placed for urinary retention. IV ceftriaxone administered at the ER for UTI. Medical History as above Surgical History : Mastoidectomy, shoulder surgery, foot surgery Family History : DM, lung cancer Personal/Social history : Past tobacco abuse, occasional EtOH intake, retired from [employer] employment Allergies Allergy/AdvReac Type Severity Reaction Status Date / Time lisinopril Allergy Severe Swelling Verified 04/29/23 14:12 of Face/Lips/Tongue Home Medications Medication Instructions Recorded Confirmed Type atorvastatin 40 mg tablet 40 mg PO QAM 11/08/21 04/29/23 History tamsulosin 0.4 mg capsule 0.4 mg PO QAM 11/08/21 04/29/23 History apixaban 5 mg tablet (Eliquis) 5 mg PO BID #60 tabs 11/11/21 04/29/23 Rx insulin aspart U-100 100 unit/mL 5 unit subcut TIDM 05/16/22 04/29/23 History (3 mL) subcutaneous pen (Novolog FlexPen U-100 Insulin aspart) insulin glargine 100 unit/mL (3 20 unit subcut HS 05/16/22 04/29/23 History mL) subcutaneous pen (Lantus Solostar U-100 Insulin) metformin 500 mg tablet,extended 1,000 mg PO QAM 05/16/22 04/29/23 History release 24 hr metoprolol tartrate 25 mg tablet 25 mg PO BID 05/16/22 04/29/23 History furosemide 40 mg tablet 0 mg PO QAM 11/20/22 04/29/23 History furosemide 40 mg tablet 0 mg PO QPM 11/20/22 04/29/23 History Past Med/Surg History Medical History Abnormal urinalysis Acute hyperglycemia Acute hypokalemia Atrial fibrillation with rapid ventricular response Bilateral edema of lower extremity BPH (benign prostatic hyperplasia) Cellulitis D-dimer, elevated Diabetes mellitus, type II DM type 2 (diabetes mellitus, type 2) DVT prophylaxis Dyslipidemia Dyspnea Edema of both legs Elevated brain natriuretic peptide (BNP) level Hearing loss Heart failure with preserved ejection fraction HTN (hypertension) Hypertension Hypokalemia Leukocytosis Moderate aortic stenosis Paroxysmal atrial fibrillation Paroxysmal atrial fibrillation Premature atrial complexes Puncture wound of foot, right Right foot infection Volume overload Surgical History H/O shoulder surgery S/P foot surgery, left Family History Brother Diabetes Social History Smoking Status: Former smoker Tobacco Type: Cigarettes Second Hand Exposure: No; Do You Dip or Chew Tobacco: No; Tobacco Cessation Education Requested by Patient: No Hx Alcohol Use: No Hx Substance Use: No Preferred Language: Yoruba Communication Ability: Impaired Communication Ability Comment: pt very hard of hearing Golf Caddie Required: No Beliefs That Will Affect Care: None marital status: Current Living Situation: Alone Current Living Situation Comment: lives in a building that has no running water How many Children do You have: 3 Other Information That Helps Us Care for You: No Feels Safe at Home: Yes Safety Concerns: Feels Safe At This Time Assistive Devices: Cane Review of Systems Review of Systems: Could not be reliably obtained secondary to hearing impairment Physical Exam Physical Exam: GENERAL: Slightly uncomfortable, hard of hearing, no respiratory distress SKIN: Normal color, warm HEENT: Bespectacled, pink palpebral conjunctivae, no ptosis, dry buccal mucosa NECK : Supple, no tenderness CHEST : CTA, no tenderness HEART : RRR, systolic murmur ABDOMEN: Some distention, nontender EXTREMITIES : Dressings over both lower extremities,, no LE tenderness, no other conspicuous deformities noted NEUROLOGIC : Coherent, no facial asymmetry, marked hearing impairment, gait and stance not assessed Results & Data Results & Data Vital Signs (Past 12 Hours) Vital Signs Temp Pulse Pulse Resp BP BP Pulse Ox 04/29/23 20:04 87 04/29/23 17:58 90 20 133/81 95 04/29/23 15:53 87 04/29/23 15:51 85 24 126/79 96 04/29/23 14:58 36.4 C L 83 26 H 138/77 96 O2 Del Method 04/29/23 20:04 04/29/23 17:58 Room Air 04/29/23 15:53 04/29/23 15:51 04/29/23 14:58 Room Air Laboratory Results Laboratory Results WBC 6.38 K/ul (4.8-10.8) 04/29/23 15:43 RBC 4.84 M/uL (4.70-6.10) 04/29/23 15:43 Hgb 14.3 g/dl (14.0-18.0) 04/29/23 15:43 Hct 42.5 % (42.0-52.0) 04/29/23 15:43 MCV 87.8 fL (80.0-100.0) 04/29/23 15:43 MCH 29.5 pg (25.0-34.0) 04/29/23 15:43 MCHC 33.6 g/dL (32.0-36.0) 04/29/23 15:43 RDW Std Deviation 41.1 fL (36.4-46.3) 04/29/23 15:43 RDW Coeff of Scott 12.8 % (11.5-14.5) 04/29/23 15:43 Plt Count 180 K/uL (130-400) 04/29/23 15:43 MPV 10.9 fL (9.4-12.4) 04/29/23 15:43 Immature Gran % (Auto) 0.3 % 04/29/23 15:43 Neut % (Auto) 88.9 % 04/29/23 15:43 Lymph % (Auto) 6.6 % 04/29/23 15:43 [place] % (Auto) 3.6 % 04/29/23 15:43 Eos % (Auto) 0.0 % 04/29/23 15:43 Baso % (Auto) 0.6 % 04/29/23 15:43 Neut # (Auto) 5.67 K/uL (1.40-6.50) 04/29/23 15:43 Lymph # (Auto) 0.42 K/uL (1.2-3.4) L 04/29/23 15:43 [place] # (Auto) 0.23 K/uL (0.11-0.59) 04/29/23 15:43 Eos # (Auto) 0.00 K/uL (0-0.50) 04/29/23 15:43 Baso # (Auto) 0.04 K/uL (0-0.2) 04/29/23 15:43 Immature Gran # (Auto) 0.02 K/uL (0.01-0.20) 04/29/23 15:43 PT 12.9 Seconds (9.0-12.0) H 04/29/23 15:43 INR 1.2 (0.9-1.1) H 04/29/23 15:43 APTT 30.8 Seconds (21.0-31.0) 04/29/23 15:43 PTT Ratio 1.1 04/29/23 15:43 Sodium 129 mmol/L (136-145) L 04/29/23 15:43 Potassium 4.2 mmol/L (3.5-5.1) 04/29/23 15:43 Chloride 91 mmol/L (98-107) L 04/29/23 15:43 Carbon Dioxide 28 mmol/L (21-32) 04/29/23 15:43 Anion Gap 10 (3-11) 04/29/23 15:43 BUN 24 mg/dl (6-23) H 04/29/23 15:43 Creatinine 1.29 mg/dl (0.6-1.4) 04/29/23 15:43 Est Cr Clr Drug Dosing Not Reportable 04/29/23 15:43 Est GFR ( Amer) 61.6 ml/min 04/29/23 15:43 Est GFR (Non-Af Amer) 53.1 ml/min 04/29/23 15:43 BUN/Creatinine Ratio 18.6 (10-20) 04/29/23 15:43 Glucose 425 mg/dl (70-99(Fasting)) H* 04/29/23 15:43 POC Glucose 223 mg/dl (70-99) H 04/29/23 19:02 Calcium 8.6 mg/dl (8.6-10.3) 04/29/23 15:43 Magnesium 1.7 mg/dl (1.7-2.4) 04/29/23 15:43 Total Bilirubin 0.9 mg/dl (0.2-1.0) 04/29/23 15:43 AST 14 U/L (13-39) 04/29/23 15:43 ALT 10 U/L (7-52) 04/29/23 15:43 Alkaline Phosphatase 76 U/L (34-104) 04/29/23 15:43 Total Protein 7.4 gm/dl (6.0-8.3) 04/29/23 15:43 Albumin 3.6 gm/dl (3.4-5.0) 04/29/23 15:43 Globulin 3.8 gm/dl (2.5-4.0) 04/29/23 15:43 Albumin/Globulin Ratio 0.9 (0.9-2) 04/29/23 15:43 Urine Color Yellow 04/29/23 15:43 Urine Appearance Cloudy (Clear) A 04/29/23 15:43 Urine pH 5.5 (4.5-7.5) 04/29/23 15:43 Ur Specific Cecilia 1.024 (1.000-1.030) 04/29/23 15:43 Urine Protein 1+ (Negative) H 04/29/23 15:43 Urine Glucose (UA) 3+ (Negative) H 04/29/23 15:43 Urine Ketones Negative (Negative) 04/29/23 15:43 Urine Blood 2+ (Negative) H 04/29/23 15:43 Urine Nitrite Negative (Negative) 04/29/23 15:43 Urine Bilirubin Negative (Negative) 04/29/23 15:43 Urine Urobilinogen Negative (Negative) 04/29/23 15:43 Ur Leukocyte Esterase 2+ (Negative) H 04/29/23 15:43 Urine WBC (Auto) >30 /hpf (0-5) H 04/29/23 15:43 Urine RBC (Auto) 0-4 /hpf (0-4) 04/29/23 15:43 U Hyaline Cast (Auto) 1-5 /lpf (0-5) 04/29/23 15:43 U Epithel Cells (Auto) 10-20 /lpf (0-5) H 04/29/23 15:43 Urine Bacteria (Auto) Negative (Negative) 04/29/23 15:43 Urine Yeast Not Reportable 04/29/23 15:43 SARS-CoV-2 (PCR) NEGATIVE (Negative) 04/29/23 15:33 Influenza Type A (PCR) Negative (Neg) 04/29/23 15:33 Influenza Type B (PCR) Negative (Neg) 04/29/23 15:33 RSV (RT-PCR) Negative (Neg) 04/29/23 15:33 Impressions Chest X-Ray 04/29/23 15:04 XR chest 1V not portable CLINICAL HISTORY: lethargy TECHNIQUE: Single frontal radiograph of the chest was obtained. Comparison: Comparison is made to chest radiograph 11/30/2021 FINDINGS: No lines and tubes are seen. Cardiomegaly is noted. The lungs are clear. No evidence of pleural effusion or pneumothorax. IMPRESSION: No acute chest disease. ACT 112: Negative or not required by law. Electronically signed by: Anderson Serra M.D. 04/29/2023 5:20 PM Abdomen/Pelvis CT 04/29/23 16:34 CT abd pelvis IV con only CLINICAL HISTORY: abd pain vomiting TECHNIQUE: Helical axial images of the abdomen and pelvis were obtained and displayed. Automated dose lowering techniques and/or adjustment according to patient size were utilized for this exam. This exam was performed with intravenous contrast. CT DOSE: 1549.33 mGy.cm COMPARISON: None available at the time of this dictation. FINDINGS: Lower chest: Bibasilar atelectasis versus scarring is seen. Liver: Unremarkable. No focal lesions are seen. Gallbladder and biliary tree: No calcified gallstones. Normal caliber wall. No intra- or extrahepatic biliary ductal dilation. Pancreas: Unremarkable, no focal lesions. Spleen: Unremarkable. Adrenals: Unremarkable. Kidneys and ureters: Left or the right hydronephrosis and hydroureter are seen. Bladder: Diffuse homogeneous wall thickening is seen. Reproductive organs: Unremarkable. Bowel: The appendix is normal. There is a small hiatal hernia. Lymph nodes Retroperitoneal: Unremarkable. Pelvic: Unremarkable. Mesenteric: Unremarkable. Peritoneum: Normal. Vessels: Atherosclerotic calcifications are seen. Abdominal wall: Right fat-containing inguinal hernia. Bones: Degenerative changes in the visualized spine. Benign-appearing chondroid lesion is seen in the left intertrochanteric femur. 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 No acute abnormality. ACT 112: Negative or not required by law. Electronically signed by: Anderson Serra M.D. 04/29/2023 6:33 PM Calcaneus X-Ray 04/29/23 16:34 XR calcaneus RT min 2V CLINICAL HISTORY: r heel wound TECHNIQUE: 2 views of the right calcaneus were obtained. Comparison: None available at the time of this dictation. FINDINGS: No evidence of bony erosion is seen. The alignment is anatomic. The joint spaces are well preserved. Soft tissue swelling is seen. IMPRESSION: No radiographic evidence of osteomyelitis. If clinical concern remains, MRI is a more sensitive modality. ACT 112: Negative or not required by law. Electronically signed by: Anderson Serra M.D. 04/29/2023 5:18 PM Diagnostic Findings EKG as per my interpretation : Rate 85, NSR, LAD, LAFB, RBBB, LVH, T wave inversions inferior and anterolateral leads
--- NOTE | 2023-04-29 20:38 | Urology Consultation ---
Date of Consultation April 29, 2023 Assessment & Plan (1) BPH (benign prostatic hyperplasia): The patient has been admitted to [facility] secondary to altered mental status from presumed hyperglycemia and urinary tract infection. I discussed with the hospitalist service. From a urologic perspective we recommend the following: Patient has had a Hanna catheter placed would recommend maintaining this catheter for the present time as appears the patient has a chronic bladder outlet obstruction resulting hydronephrosis. The Hanna catheter will hopefully help alleviate some of the hydronephrosis and will also provide source control for urinary tract infection It appears by urinalysis that the patient does have a urinary tract infection. He was initially treated with antibiotics in form of Rocephin but this has been changed to cefepime. A urine culture has been sent. Broad-spectrum antibiotics to be continued until further culture data is available at which time his antibiotics can be adjusted based on these results As noted the patient has had a normal PSA in the year 2019 As an outpatient the patient does take Flomax which should continue Additional recommendations be forthcoming based on his clinical course as it unfolds History of Present Illness Reason for Consultation: Bladder outlet obstruction with bilateral hydronephrosis History of Present Illness This is a 77-year-old male who presented to the emergency department secondary to altered mental status from the wound care center. It should be noted that the patient was somewhat confused and therefore did not prove to be the best historian. The history was obtained from discussion with the hospitalist service and review of records. This patient presented to the emergency department from the wound care clinic as the patient was noted to be tired and somewhat confused. I was that I was able to question the patient briefly and he could answer some yes or no questions. Patient did report that he was not feeling well and had some vomiting on 04/29/2023. The patient reportedly was not taking his insulin because he has not been eating very much. I did question patient on urologic symptoms and the patient notes over the past several days he felt as though he had urinary frequency having to urinate every 15 minutes. He could not delineate whether or not he was emptying his bladder completely. He did not report any fevers, shakes, or chills. Since arrival to the emergency department patient has had labs and imaging which independent reviewed. Chest x-ray showed no evidence of pneumonia. A CT scan of the abdomen pelvis showed the patient had evidence of chronic bladder outlet obstruction with bilateral hydronephrosis noted with left appearing greater than right. A calcaneus x-ray was performed that showed no evidence of osteomyelitis. Labs include a CBC were white blood cell count, hemoglobin, hematocrit, platelet count were normal. Chemistry profile shows sodium is 129 with a normal potassium. BUN had a slight elevation at 24 and his creatinine was within the normal range at 1.29. A urinalysis was performed that showed cloudy urine which was negative for nitrites. He did have 2+ leukocyte Estrace and greater than 30 white blood cells per high-power field. No bacteria or yeast were noted on this study. Patient was tested for COVID-19, influenza a and B, and RSV all of which were negative. It is noteworthy mention that the patient did have a PSA checked as an outpatient in 2019 which was noted to be nonelevated At the time of my interview he was resting comfortably in the bed he was in no distress Allergies Allergy/AdvReac Type Severity Reaction Status Date / Time lisinopril Allergy Severe Swelling Verified 04/29/23 14:12 of Face/Lips/Tongue Home Medications Medication Instructions Recorded Confirmed Type atorvastatin 40 mg tablet 40 mg PO QAM 11/08/21 04/29/23 History tamsulosin 0.4 mg capsule 0.4 mg PO QAM 11/08/21 04/29/23 History apixaban 5 mg tablet (Eliquis) 5 mg PO BID #60 tabs 11/11/21 04/29/23 Rx insulin aspart U-100 100 unit/mL 5 unit subcut TIDM 05/16/22 04/29/23 History (3 mL) subcutaneous pen (Novolog FlexPen U-100 Insulin aspart) insulin glargine 100 unit/mL (3 20 unit subcut HS 05/16/22 04/29/23 History mL) subcutaneous pen (Lantus Solostar U-100 Insulin) metformin 500 mg tablet,extended 1,000 mg PO QAM 05/16/22 04/29/23 History release 24 hr metoprolol tartrate 25 mg tablet 25 mg PO BID 05/16/22 04/29/23 History furosemide 40 mg tablet 0 mg PO QAM 11/20/22 04/29/23 History furosemide 40 mg tablet 0 mg PO QPM 11/20/22 04/29/23 History Patient History Medical History Abnormal urinalysis Acute hyperglycemia Acute hypokalemia Atrial fibrillation with rapid ventricular response Bilateral edema of lower extremity BPH (benign prostatic hyperplasia) Cellulitis D-dimer, elevated Diabetes mellitus, type II DM type 2 (diabetes mellitus, type 2) DVT prophylaxis Dyslipidemia Dyspnea Edema of both legs Elevated brain natriuretic peptide (BNP) level Hearing loss Heart failure with preserved ejection fraction HTN (hypertension) Hypertension Hypokalemia Leukocytosis Moderate aortic stenosis Paroxysmal atrial fibrillation Paroxysmal atrial fibrillation Premature atrial complexes Puncture wound of foot, right Right foot infection Volume overload Surgical History H/O shoulder surgery S/P foot surgery, left Family History Brother Diabetes Social History Smoking Status: Former smoker Tobacco Type: Cigarettes Second Hand Exposure: No; Do You Dip or Chew Tobacco: No (quit in 1979); Hx Alcohol Use: Yes Alcohol type: beer Hx Substance Use: No Preferred Language: Telugu Communication Ability: Effective Communication Ability Comment: pt very hard of hearing Socket 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 Required: No Beliefs That Will Affect Care: None marital status: Current Living Situation: Spouse How many Children do You have: 3 Feels Safe at Home: Yes Assistive Devices: Cane and Glasses Review of Systems Constitutional: no fever Respiratory: no dyspnea Cardiovascular: no chest pain Gastrointestinal: no abdominal pain Genitourinary: + as per Subjective / HPI Musculoskeletal: no back pain Physical Exam Constitutional: WD/WN, vitals as above Eyes: no conjunctival abnormality ENMT: Ears: + hearing impairment Neck: trachea midline Respiratory: normal respiratory effort; no respiratory distress and no labored breathing Cardiovascular: Rate/Rhythm: regular rate and regular rhythm Gastrointestinal (Abdomen): Abdomen is soft and nonrigid. Palpation did not cause pain Genitourinary: No CVA tenderness noted bilaterally Results & Data Vital Signs (Past 12 Hours) Vital Signs Temp Pulse Pulse Resp BP BP Pulse Ox 04/29/23 20:04 87 04/29/23 17:58 90 20 133/81 95 04/29/23 15:53 87 04/29/23 15:51 85 24 126/79 96 04/29/23 14:58 36.4 C L 83 26 H 138/77 96 O2 Del Method 04/29/23 20:04 04/29/23 17:58 Room Air 04/29/23 15:53 04/29/23 15:51 04/29/23 14:58 Room Air PG Care Time/CCT Total # of Minutes Spent Total Time Spent with Patient: Total time spent is greater than 50% in coordination of care (as documented) at patient's floor/unit and/or counseling patient: Coding Level of Care Code 81818 INT INP/OBS CARE 375MIN Diagnoses BPH (benign prostatic hyperplasia) N40.0
[2023-04-29] MEDS ORDERED: GLUCAGON FOR INJ 1 MG VIAL SQ PRN (22:27)
[2023-04-29] MEDS ORDERED: CARBOHYDRATES FOR HYPOGLYCEMIA PO PRN (22:27)
[2023-04-29] MEDS ORDERED: GLUCOSE 10 TAB/TUBE PO PRN (22:27)
[2023-04-29] MEDS ORDERED: PROMETHAZINE HCL 6.25 MG in SODIUM CHLORIDE 0.9% 50 ML IV PRN (22:27)
[2023-04-29] MEDS ORDERED: DEXTROSE 50% 50 ML SYRINGE IV PRN (22:27)
[2023-04-29] MEDS ORDERED: GLUCOSE 40% GEL 15 GM TUBE PO PRN (22:27)
[2023-04-29] MEDS: APIXABAN 5 MG TABLET PO SCH (23:23)
[2023-04-29] MEDS: METOPROLOL TARTRATE 25 MG TAB PO SCH (23:23)
[2023-04-29] MEDS: INSULIN ASPART PER UNIT CHARGE SC SCH (23:23)
[2023-04-30] MEDS ORDERED: METOPROLOL TARTRATE 1 MG/ML VIAL IV STA ×2 (06:11→08:43)
[2023-04-30] MEDS: MAGNESIUM SULFATE / D5W 1 GM/100 ML BAG IV SCH ×2 (06:24→09:03)
[2023-04-30 07:19] LABS: Estimated Average Glucose 260 mg/dl; Hemoglobin A1C 10.7 % (4.5-5.6)
[2023-04-30 07:34] LABS: Basophils # (auto) 0.04 K/uL (0-0.2); Basophils % (auto) 0.7 %; Hematocrit (blood only) 37.5 % (42.0-52.0); Hemoglobin 12.7 g/dl (14.0-18.0); Immature Granulocytes # (auto) 0.02 K/uL (0.01-0.20); Immature Granulocytes % (auto) 0.3 %; Lymphocytes # (auto) 0.62 K/uL (1.2-3.4); Lymphocytes % (auto) 10.4 %; Mean Corpuscular Hemoglobin 29.7 pg (25.0-34.0); Mean Corpuscular Hgb Conc 33.9 g/dL (32.0-36.0); Mean Corpuscular Volume 87.8 fL (80.0-100.0); Mean Platelet Volume 10.9 fL (9.4-12.4); Monocytes # (auto) 0.33 K/uL (0.11-0.59); Monocytes % (auto) 5.5 %; Neutrophils # (auto) 4.94 K/uL (1.40-6.50); Neutrophils % (auto) 83.1 %; Platelet Count 129 K/uL (130-400); RDW Coefficient of Variation 12.8 % (11.5-14.5); RDW Standard Deviation 40.7 fL (36.4-46.3); Red Blood Count 4.27 M/uL (4.70-6.10); White Blood Count 5.95 K/ul (4.8-10.8)
[2023-04-30 07:48] LABS: BUN Creatinine Ratio 16.5 (10-20); Calcium 7.8 mg/dl (8.6-10.3); Creatinine Clr Calc Pharmacy 61.2 ml/min; Est GFR (African American) 75.5 ml/min; Est GFR (Non-African American) 65.1 ml/min; Potassium 3.4 mmol/L (3.5-5.1)
[2023-04-30] MEDS: INSULIN ASPART PER UNIT CHARGE SC SCH ×4 (07:58→20:18)
[2023-04-30] MEDS: TAMSULOSIN HCL 0.4 MG CAP PO SCH (07:59)
[2023-04-30] MEDS: CEFEPIME 2,000 MG in SYRINGE 0 ML IV SCH ×2 (07:59→20:26)
[2023-04-30] MEDS: ATORVASTATIN 40 MG TAB PO SCH (07:59)
[2023-04-30] MEDS: METOPROLOL TARTRATE 25 MG TAB PO SCH ×3 (07:59→20:26)
[2023-04-30] MEDS: APIXABAN 5 MG TABLET PO SCH ×2 (07:59→20:26)
--- NOTE | 2023-04-30 09:58 | Urology Progress Note ---
Date of Service April 30, 2023 Assessment & Plan (1) Urinary retention: (2) Hydronephrosis: (3) UTI (urinary tract infection): (4) BPH (benign prostatic hyperplasia): Plan 77yo/M who presented with weakness and altered mental status and admitted with presumed hyperglycemia and urinary tract infection. CT abd pelvis on arrival demonstrated chronic bladder outlet obstruction with resulting left greater than right hydronephrosis. Afebrile at present (Tmax 38.0C earlier this morning). Hemodynamically stable. Labs today show no leukocytosis, hemoglobin 12.7, creatinine normal. Urine culture pending, on IV cefepime. Hanna intact and draining clear yellow urine with sediment. Continue supportive care and antibiotics. Follow culture and tailor as culture data becomes available. Maintain Hanna catheter. Okay to hand irrigate as needed for retention, suprapubic pain. Urology will follow. Admission and Anticipated Discharge Date Admission Date: April 29, 2023 Subjective Pt examined at bedside this AM. Awake, resting in bed on arrival. No acute distress. Denied fever, chills, nausea, vomiting. There is a documented fever of 38C at 0726 this morning. Denies any pain or discomfort. Hanna draining clear urine with sediment. Review of Systems Constitutional: as per Subjective / HPI Gastrointestinal: as per Subjective / HPI Genitourinary: + as per Subjective / HPI Physical Exam Constitutional: no acute distress ENMT: Ears: + hearing impairment Neurologic: awake Psychiatric: Orientation: alert and cooperative Genitourinary: Hanna catheter intact draining clear urine with sediment Results & Data Vital Signs (Past 12 Hours) Vital Signs Temp Pulse Pulse Resp BP BP Pulse Ox 04/30/23 09:21 117 H 153/84 H 04/30/23 09:06 125 H 157/91 H 04/30/23 08:33 37.3 C 117 H 16 103/75 93 04/30/23 06:40 133 H 147/84 H 04/30/23 07:26 38.0 C H 113 H 18 118/83 93 04/30/23 07:26 122 H 04/30/23 06:40 133 H 147/76 H 04/30/23 06:35 130 H 133/86 04/30/23 06:23 120 H 133/86 04/30/23 03:38 36.5 C 72 18 130/82 97 04/29/23 23:59 76 04/29/23 23:00 04/29/23 23:00 37.0 C 81 18 149/84 H 95 O2 Del Method 04/30/23 09:21 04/30/23 09:06 04/30/23 08:33 Room Air 04/30/23 06:40 04/30/23 07:26 Room Air 04/30/23 07:26 04/30/23 06:40 04/30/23 06:35 04/30/23 06:23 04/30/23 03:38 Room Air 04/29/23 23:59 04/29/23 23:00 Room Air 04/29/23 23:00 Room Air PG Care Time/CCT Total # of Minutes Spent Total Time Spent with Patient: Total time spent is greater than 50% in coordination of care (as documented) at patient's floor/unit and/or counseling patient: Coding Level of Care Code 07757 SUB INP/OBS CARE 2/35MIN Diagnoses Urinary retention R33.9 Hydronephrosis N13.30 UTI (urinary tract infection) N39.0 BPH (benign prostatic hyperplasia) N40.0
--- NOTE | 2023-04-30 11:25 | Cardiology Consultation ---
Date of Consultation April 30, 2023 Assessment & Plan (1) Paroxysmal atrial fibrillation: (2) Hydronephrosis: (3) UTI (urinary tract infection): (4) Aortic stenosis: Plan IMPRESSION: 77 year old male admitted for generalized weakness/malaise found to have an acute UTI and hydronephrosis. Hx of PAF, lapsed into course AFIB/Flutter this am around 03:30 am. Self converted to NSR at 11:10 am. PLAN: Recurrent PAF likely due to acute illness self converted to NSR- recommend treatment of underlying UTI per primary service/urology. 1. Continue beta arnel as ordered, tartrate 25 mg TID- consider transitioning to succinate formulary at discharge. 2. Continue anticoagulation with Eliquis 5 mg twice daily as ordered. 3. Monitor renal function, mild hyponatremia and hypokalemia noted, replete potassium for a goal of 4.0 and mag of 2.0. 4. Aortic stenosis classified as moderate on last echo 12/2022- will continue to monitor as an outpatient. Case discussed with Dr. Mathis. Supervising Physician Co-Signing Physician Notes Patient seen and examined records as above. Intermittent atrial fibrillation observed this admission with underlying bifascicular heart block. No profound bradycardia arrhythmias. Patient asymptomatic but intermittently experiencing atrial fibrillation Plan as above we will increase metoprolol to tartrate even further to 4 times p er day. Supplement potassium If becomes persistent issue would consider amiodarone however bifascicular block on EKG with increased tendencies towards high degree AV block with antiarrhythmic therapy Treat underlying medical issues History of Present Illness Reason for Consultation: PAF RVR Requesting Physician: Marian pastor Attending Physician: Derek Wyatt MD History of Present Illness 77-year-old male who initially presented to [facility] emergency department due to generalized malaise and weakness Was seen at the wound care clinic on 04/27 due to lower extremity venous ulcers and at this time was found to be weak with decreased responsiveness. He was directed to the ER for further evaluations. Patient was hyperglycemic and retaining urine. Urology consulted. Hanna catheter was placed and patient was started on antibiotics. Upon chart review it appears the patient has been living out of his car with limited access to electricity and running water. had concerns regarding patient's irrational behavior. Otherwise patient carries a history of chronic diastolic CHF with most recent echocardiogram showing an EF of 60% on 12/2022. Also noted to have paroxysmal AFIB- anticoagulated on Eliquis, moderate aortic stenosis, and hypertension. Cardiology consulted this morning (04/30) due to course AFIB/Flutter rapid ventricular rates (120-160s) around 0330 am. Self converted to NSR with PACs 70s at 11:10 am. He is currently maintained on metoprolol tartrate 25 mg 3 times daily and anticoagulated with Eliquis. Hypokalemia noted on blood work, supplemented with 40meq of potassium this morning. Upon entrance into the room patient resting in bed. at bedside and assists with history due to significant hearing impairment. No acute concerns. Patient was asymptomatic while in AFIB. No chest pain or shortness. No lightheadedness. No evidence of acute CHF- Denies orthopnea, PND, or lower extremity edema. PAST MEDICAL HISTORY: 1. Paroxysmal atrial fibrillation with a [id number] score of 4 2. Moderate aortic stenosis 3. Very hard of hearing 4. Diabetes 5. Hypertension Allergies Allergy/AdvReac Type Severity Reaction Status Date / Time lisinopril Allergy Severe Swelling Verified 04/29/23 14:12 of Face/Lips/Tongue Home Medications Medication Instructions Recorded Confirmed Type atorvastatin 40 mg tablet 40 mg PO QAM 11/08/21 04/29/23 History tamsulosin 0.4 mg capsule 0.4 mg PO QAM 11/08/21 04/29/23 History apixaban 5 mg tablet (Eliquis) 5 mg PO BID #60 tabs 11/11/21 04/29/23 Rx insulin aspart U-100 100 unit/mL 5 unit subcut TIDM 05/16/22 04/29/23 History (3 mL) subcutaneous pen (Novolog FlexPen U-100 Insulin aspart) insulin glargine 100 unit/mL (3 20 unit subcut HS 05/16/22 04/29/23 History mL) subcutaneous pen (Lantus Solostar U-100 Insulin) metformin 500 mg tablet,extended 1,000 mg PO QAM 05/16/22 04/29/23 History release 24 hr metoprolol tartrate 25 mg tablet 25 mg PO BID 05/16/22 04/29/23 History furosemide 40 mg tablet 0 mg PO QAM 11/20/22 04/29/23 History furosemide 40 mg tablet 0 mg PO QPM 11/20/22 04/29/23 History Patient History Medical History Abnormal urinalysis Acute hyperglycemia Acute hypokalemia Atrial fibrillation with rapid ventricular response Bilateral edema of lower extremity BPH (benign prostatic hyperplasia) Cellulitis D-dimer, elevated Diabetes mellitus, type II DM type 2 (diabetes mellitus, type 2) DVT prophylaxis Dyslipidemia Dyspnea Edema of both legs Elevated brain natriuretic peptide (BNP) level Hearing loss Heart failure with preserved ejection fraction HTN (hypertension) Hypertension Hypokalemia Leukocytosis Moderate aortic stenosis Paroxysmal atrial fibrillation Paroxysmal atrial fibrillation Premature atrial complexes Puncture wound of foot, right Right foot infection Volume overload Surgical History H/O shoulder surgery S/P foot surgery, left Family History Brother Diabetes Social History Smoking Status: Former smoker Tobacco Type: Cigarettes Second Hand Exposure: No; Do You Dip or Chew Tobacco: No; Tobacco Cessation Education Requested by Patient: No Hx Alcohol Use: No Hx Substance Use: No Preferred Language: Persian Communication Ability: Impaired Communication Ability Comment: pt very hard of hearing Private Duty Nurse Required: No Beliefs That Will Affect Care: None marital status: Current Living Situation: Alone Current Living Situation Comment: lives in a building that has no running water How many Children do You have: 3 Other Information That Helps Us Care for You: No Feels Safe at Home: Yes Safety Concerns: Feels Safe At This Time Assistive Devices: Cane Review of Systems Review of Systems: All systems reviewed & are unremarkable except as noted in HPI & below and Other (Limited due to hearing impairment.) Physical Exam Constitutional: WD/WN, vitals as above no acute distress Eyes: PERRL, conjunctivae normal, anicteric sclerae Neck: normal visual inspection and trachea midline Respiratory: normal respiratory effort, lungs clear to auscultation no cough Cardiovascular: RRR, no murmur, no edema Heart Sounds: normal S1, normal S2 and + murmur (+2/6 systolic murmur) Vessels: no JVD Extremities: no edema Gastrointestinal (Abdomen): normal bowel sounds, soft, nontender, no hepatosplenomegaly Skin: no rashes, warm and dry Psychiatric: Orientation: alert, oriented to person and oriented to place Results & Data Vital Signs (Past 12 Hours) Vital Signs Temp Pulse Pulse Resp BP BP BP 04/30/23 10:49 37.6 C H 54 L 18 121/84 04/30/23 09:21 117 H 153/84 H 04/30/23 09:06 125 H 157/91 H 04/30/23 08:33 37.3 C 117 H 16 103/75 04/30/23 06:40 133 H 147/84 H 04/30/23 07:26 38.0 C H 113 H 18 118/83 04/30/23 07:26 122 H 04/30/23 06:40 133 H 147/76 H 04/30/23 06:35 130 H 133/86 04/30/23 06:23 120 H 133/86 04/30/23 03:38 36.5 C 72 18 130/82 04/29/23 23:59 76 Pulse Ox O2 Del Method 04/30/23 10:49 92 Room Air 04/30/23 09:21 04/30/23 09:06 04/30/23 08:33 93 Room Air 04/30/23 06:40 04/30/23 07:26 93 Room Air 04/30/23 07:26 04/30/23 06:40 04/30/23 06:35 04/30/23 06:23 04/30/23 03:38 97 Room Air 04/29/23 23:59 Laboratory Results Cardiac Enzymes 04/29/23 Range/Units 15:43 AST 14 (13-39) U/L Coagulation 04/29/23 Range/Units 15:43 PT 12.9 H (9.0-12.0) Seconds APTT 30.8 (21.0-31.0) Seconds CBC 04/29/23 04/30/23 Range/Units 15:43 06:44 WBC 6.38 5.95 (4.8-10.8) K/ul RBC 4.84 4.27 L (4.70-6.10) M/uL Hgb 14.3 12.7 L (14.0-18.0) g/dl Hct 42.5 37.5 L (42.0-52.0) % Plt Count 180 129 L (130-400) K/uL Neut # (Auto) 5.67 4.94 (1.40-6.50) K/uL Lymph # (Auto) 0.42 L 0.62 L (1.2-3.4) K/uL Tate # (Auto) 0.23 0.33 (0.11-0.59) K/uL Eos # (Auto) 0.00 0.00 (0-0.50) K/uL Baso # (Auto) 0.04 0.04 (0-0.2) K/uL Comprehensive Metabolic Panel 04/29/23 04/30/23 Range/Units 15:43 06:44 Sodium 129 L 131 L (136-145) mmol/L Potassium 4.2 3.4 L (3.5-5.1) mmol/L Chloride 91 L 96 L (98-107) mmol/L Carbon Dioxide 28 29 (21-32) mmol/L BUN 24 H 18 (6-23) mg/dl Creatinine 1.29 1.09 (0.6-1.4) mg/dl Glucose 425 H* 123 H (70-99(Fasting)) mg/dl Calcium 8.6 7.8 L (8.6-10.3) mg/dl AST 14 (13-39) U/L ALT 10 (7-52) U/L Alkaline Phosphatase 76 (34-104) U/L Total Protein 7.4 (6.0-8.3) gm/dl Albumin 3.6 (3.4-5.0) gm/dl Intake and Output 04/29/23 04/30/23 04/30/23 22:59 06:59 14:59 Intake Total 1070 / 1070 200 / 200 Output Total 950 / 950 Balance 1070 / 120 -950 / 120 200 / 200 Intake: IV 1070 / 1070 200 / 200 Magnesium Sulfate / D5w 1 gm In 200 / 200 100 ml @ 50 mls/hr IV Q2H DARIN Rx#:[id number] Sodium Chloride 0.9% 1000ML 1, 1000 / 1000 000 ml @ 999 mls/hr IV .Q1H1M ONE Rx#:[id number] cefTRIAXone SODIUM 2,000 mg In 70 / 70 70 ml @ 140 mls/hr IV NOW STA Rx#:[id number] Output: Urine Amount (Catheter) 950 / 950 Hanna/Indwelling 950 / 950 Other: Weight 84.5 kg 88 kg Weight Measurement Method Built in [facility]
--- NOTE | 2023-04-30 11:41 | Electrocardiogram Report ---
Test Reason : Blood Pressure : / mmHG Vent. Rate : 118 BPM Atrial Rate : 357 BPM P-R Int : 000 ms QRS Dur : 120 ms QT Int : 336 ms P-R-T Axes : 089 -62 068 degrees QTc Int : 470 ms Atrial flutter with variable A-V block Pulmonary disease pattern Right bundle branch block Left anterior fascicular block Left ventricular hypertrophy with repolarization abnormality Abnormal ECG When compared with ECG of 29-APR-2023 15:30, Atrial flutter has replaced Sinus rhythm HR has increased by 31 bpm Confirmed by Sujit Perez ([id number]) on 04/30/2023 11:41:50 AM Referred By: REFERRED SELF Confirmed By:Sujit Perez
--- NOTE | 2023-04-30 12:32 | Psychiatric Consultation ---
Date of Consultation April 30, 2023 Impression / Recommendations Impression Diagnostically it is difficult to fully assess Selvin given his severe hearing loss with no access to hearing aids nor ability to use sign language or alternative means of communicating except via writing and he is not very cooperative with this process and disengaged quickly. There are no overt signs of psychosis nor bev, he denies depressed or anxious mood and seems he is able to care for his basic needs. Of greater concern is his level of cognition given recent hyponatremia, which can certainly contribute to confusion/encephalopathy, versus possible dementia/neurocognitive disorder given prior head CT in Nov 2021 with radiologist read noting "Age-related involutional changes. White matter hypodensities suggest chronic microvascular ischemic disease. Cerebral vascular calcifications." Given his multiple metabolic and cardiovascular conditions there may be a component of vascular dementia. In terms of delusional disorder that is impossible to assess at this time given limited ability to engage with him. Certainly chronic hoarding behaviors, obsessional acts/beliefs and preference to be on his own could represent some type of schizoid personality disorder though given his long marriage, children and report of recent family vacation with cruise to [place] suspect much more likely is that his increased isolation represents martial discord versus worse vernon dementia process with change in behaviors. (1) Memory loss: (2) Severe hearing loss: Plan -Consider outpatient dementia/memory workup with brain MRI if concerns for behavioral changes persist -Strongly recommend hearing aids/corrective device; he may be isolating due to frustration of not being able to communicate when around others Psych History Identifying Data 77 yo old man with history of CHF, afib, HTN, HLD, BPH, severe hearing loss, chronic venous ulcers with no known formal psychiatric history but history of hoarding/obsessions admitted medically for weakness. Psychiatry consulted for rule out of delusional disorder. Chief Complaint "I'm in my tree stand". History of Present Illness Selvin was admitted for weakness felt to be multifactorial in nature including UTI. During admission his reported concerns about him: "Patient has been living in his car on a family property with limited access to electricity and running water as per the last few months.Patient concerned about patient's irrational behavior." per hospitalist H&P and requested psychiatry consult. In meeting with patient and his today full assessment is extremely difficult due to his severe hearing loss requiring that all questions be written out for him to respond to. He stated he enjoys going to his property because that's where his tree stand is and he likes being there. Stated his mood is "so so" and then fell back asleep and did not wake until his lunch was brought. His , Farhana, at bedside provides some collateral but this is also limited. She states they have been for 54 years and have three children. Selvin spends the winter months in their apartment but in the summer has been living out near his tree stand and using the bathroom in the [place]. He drives to the store to get food and comes to the apartment to change clothes and shower. She wishes he wouldn't go out there but notes that he is "stubborn" and she hasn't been able to convince him to remain in the apartment. No clear marital stress but she notes that maybe if she got an apartment with more than one bedroom then he might spend more time at home. She doesn't have concerns about his driving but doesn't think it's good for him to be staying out at the tree stand. She denies that he has any psychiatric history of prior diagnoses, no history of hospitalizations, no prior suicide attempts. Allergies Allergy/AdvReac Type Severity Reaction Status Date / Time lisinopril Allergy Severe Swelling Verified 04/29/23 14:12 of Face/Lips/Tongue Home Medications Medication Instructions Recorded Confirmed Type atorvastatin 40 mg tablet 40 mg PO QAM 11/08/21 04/29/23 History tamsulosin 0.4 mg capsule 0.4 mg PO QAM 11/08/21 04/29/23 History apixaban 5 mg tablet (Eliquis) 5 mg PO BID #60 tabs 11/11/21 04/29/23 Rx insulin aspart U-100 100 unit/mL 5 unit subcut TIDM 05/16/22 04/29/23 History (3 mL) subcutaneous pen (Novolog FlexPen U-100 Insulin aspart) insulin glargine 100 unit/mL (3 20 unit subcut HS 05/16/22 04/29/23 History mL) subcutaneous pen (Lantus Solostar U-100 Insulin) metformin 500 mg tablet,extended 1,000 mg PO QAM 05/16/22 04/29/23 History release 24 hr metoprolol tartrate 25 mg tablet 25 mg PO BID 05/16/22 04/29/23 History furosemide 40 mg tablet 0 mg PO QAM 11/20/22 04/29/23 History furosemide 40 mg tablet 0 mg PO QPM 11/20/22 04/29/23 History Patient History Medical History Abnormal urinalysis Acute hyperglycemia Acute hypokalemia Atrial fibrillation with rapid ventricular response Bilateral edema of lower extremity BPH (benign prostatic hyperplasia) Cellulitis D-dimer, elevated Diabetes mellitus, type II DM type 2 (diabetes mellitus, type 2) DVT prophylaxis Dyslipidemia Dyspnea Edema of both legs Elevated brain natriuretic peptide (BNP) level Hearing loss Heart failure with preserved ejection fraction HTN (hypertension) Hypertension Hypokalemia Leukocytosis Moderate aortic stenosis Paroxysmal atrial fibrillation Paroxysmal atrial fibrillation Premature atrial complexes Puncture wound of foot, right Right foot infection Volume overload Surgical History H/O shoulder surgery S/P foot surgery, left Family History Brother Diabetes Social History Smoking Status: Former smoker Tobacco Type: Cigarettes Second Hand Exposure: No; Do You Dip or Chew Tobacco: No; Tobacco Cessation Education Requested by Patient: No Hx Alcohol Use: No Hx Substance Use: No Preferred Language: Slovenian Communication Ability: Impaired Communication Ability Comment: pt very hard of hearing Transportation Department Head Required: No Beliefs That Will Affect Care: None marital status: Current Living Situation: Alone Current Living Situation Comment: lives in a building that has no running water How many Children do You have: 3 Other Information That Helps Us Care for You: No Feels Safe at Home: Yes Safety Concerns: Feels Safe At This Time Assistive Devices: Cane Physical Exam Psychiatric: Orientation: alert and oriented to person Apperance: appropriately dressed and appropriately groomed Eye Contact: + fair eye contact Motor Behavior: no abnormal motor movements Speech: normal rate/rhythm/volume of speech (brief) Affect: + constricted affect Mood: no depressed mood and no anxious mood Thought Process: + concrete thought process Thought Content: reality based without delusions Suicidal Thoughts: denies suicidal thoughts Insight: + limited insight Judgment: + limited judgement Vital Signs (Past 24 Hours): Last Vital Signs Temp 37.6 C H 04/30/23 10:49 Pulse 71 04/30/23 11:49 Resp 18 04/30/23 10:49 BP 121/84 04/30/23 10:49 Pulse Ox 92 04/30/23 10:49 O2 Del Method Room Air 04/30/23 10:49 Review of Systems Other (severe hearing loss) Results & Data (PSY) Laboratory Results hyponatremia Medications Administered Apixaban (Apixaban 5 Mg Tablet) 5 mg PO BID [facility] Stop: 05/29/23 22:26 Last Admin: 04/30/23 07:59 Dose: 5 mg Documented By: Admin: 04/29/23 23:23 Dose: 5 mg Documented By: WARREN Atorvastatin Calcium (Atorvastatin 40 Mg Tab) 40 mg PO [facility] Stop: 05/30/23 08:59 Last Admin: 04/30/23 07:59 Dose: 40 mg Documented By: BELINDA Sodium Chloride (Nss 1000ml) 1,000 mls @ 50 mls/hr IV .Q20H ONE Stop: 04/30/23 16:19 Last Admin: 04/29/23 22:36 Dose: 50 mls/hr Documented By: WARREN Cefepime HCl 2,000 mg/ Syringe 20 mls @ 5 mls/min IV Q12H [facility]; Protocol Stop: 05/10/23 07:59 Last Admin: 04/30/23 07:59 Dose: 5 mls/min Documented By: BELINDA Insulin Aspart (Insulin Aspart Per Unit Charge) 0 units SC ACHS [facility] Stop: 05/29/23 22:26 Last Admin: 04/30/23 12:16 Dose: 4 units Documented By: BELINDA Co-signed By: LUIS F Admin: 04/30/23 07:58 Dose: 1 units Documented By: BELINDA Co-signed By: LUIS F Admin: 04/29/23 23:23 Dose: 4 units Documented By: WARREN Co-signed By: SD Tamsulosin HCl (Tamsulosin Hcl 0.4 Mg Cap) [facility] Stop: 05/30/23 08:59 Last Admin: 04/30/23 07:59 Dose: 0.4 mg Documented By: BELINDA Coding Level of Care Code 03799 IN/OBS CONSULT LVL 3,45M Diagnoses Memory loss R41.3 Severe hearing loss H91.90 Time Spent (min) 50
[2023-04-30] MEDS ORDERED: METOPROLOL TARTRATE 25 MG TAB PO SCH (14:00)
[2023-04-30] MEDS ORDERED: POTASSIUM CHLORIDE CRTAB 20 MEQ TABCR PO ONE (14:45)
--- NOTE | 2023-04-30 18:33 | Hospitalist Progress Note ---
Date of Service April 30, 2023 Assessment & Plan (1) UTI (urinary tract infection): (2) Urinary retention: (3) Paroxysmal atrial fibrillation with RVR: (4) Diabetes mellitus, type II: (5) Hyponatremia: (6) Hypokalemia: Plan 77-year-old male with multiple medical problems including chronic diastolic CHF, paroxysmal A-fib on Eliquis, presented to ED not feeling well for past week. Not taking insulin because of poor appetite and blood sugar 400s in the ED, also found to have urinary retention and Hanna was placed. Per , patient has been living in his car on a family property with limited access to electricity and running water for the last few months CT A/P- Chronic bladder outlet obstruction is seen with resulting left greater than right hydronephrosis. No acute abnormality. Xray rt calcaneus- No radiographic evidence of osteomyelitis. UTI-continue cefepime pending final urine culture results. Urine retention-status post Hanna. Urology following. Continue Flomax. Hyponatremia-mild, recheck in am Hypokalemia- repleted, recheck in am Paroxysmal A-fib with RVR- going in and out of A fib. Lopressor increased to qid. Already on eliquis. Lopressor prn. Cardiology on board Right heel ulcer- does not look infected. Xray does not show OM. Follows with wound care and already improving per . continue wound care. Valvular heart disease-echo shows moderately severe valve aortic stenosis, mild MR, trace TR, EF 50 to 55%. Diabetes mellitus type 2- continue lantus, SSI. adjust as indicated Hearing loss- recommend hearing aids Seen by psych- recommended OP dementia/memory workup with brain MRI if concerns for behavioral changes persist. Strongly recommend hearing aids/corrective device; he may be isolating due to frustration of not being able to communicate when around others DVT ppx- Eliquis Dispo- pending clx results. PT OT malgorzata. Admission and Anticipated Discharge Date Admission Date: April 29, 2023 Subjective Patient was seen and examined at bedside in presence of his . He was sleeping but easily arousable. States he is tired and did not get much sleep last night and is trying to catch up with sleep. Had fever this morning. Appetite okay. No chest pain, shortness of breath, nausea or vomiting. Review of Systems Review of Systems: All systems reviewed & are unremarkable except as noted in Subjective Physical Exam Physical Exam: General: Sleeping, easily arousable, not in acute distress, on room air HEENT: ARNOL[place], MMM Chest: Fair breath sounds bilaterally, no wheezes or crackles CVS: Irregular, normal heart sounds, no murmur Abdomen: Soft, non tender, not distended, normal bowel sounds Neuro: Sleeping, easily arousable, very hard of hearing, answering simple questions Extremities: No cyanosis, clubbing or edema Skin: Left heel wound noted- doesn't look deep or infected- follows with wound care 3x/wk and states improving Results & Data Results & Data Vital Signs (Past 12 Hours) Vital Signs Temp Pulse Pulse Resp BP BP BP 04/30/23 17:29 111 H 125/75 04/30/23 16:31 112 H 04/30/23 15:45 36.8 C 114 H 18 106/61 04/30/23 13:29 101 H 108/68 04/30/23 11:49 71 04/30/23 08:00 04/30/23 10:49 37.6 C H 54 L 18 121/84 04/30/23 09:21 117 H 153/84 H 04/30/23 09:06 125 H 157/91 H 04/30/23 08:33 37.3 C 117 H 16 103/75 04/30/23 06:40 133 H 147/84 H 04/30/23 07:26 38.0 C H 113 H 18 118/83 04/30/23 07:26 122 H 04/30/23 06:40 133 H 147/76 H 04/30/23 06:35 130 H 133/86 Pulse Ox O2 Del Method 04/30/23 17:29 04/30/23 16:31 04/30/23 15:45 93 Room Air 04/30/23 13:29 04/30/23 11:49 04/30/23 08:00 Room Air 04/30/23 10:49 92 Room Air 04/30/23 09:21 04/30/23 09:06 04/30/23 08:33 93 Room Air 04/30/23 06:40 04/30/23 07:26 93 Room Air 04/30/23 07:26 04/30/23 06:40 04/30/23 06:35
[2023-04-30] MEDS: LANTUS PER UNIT CHARGE SQ SCH (20:25)
[2023-05-01 07:35] LABS: Albumin Globulin Ratio 0.9 (0.9-2); Albumin Level 3.1 gm/dl (3.4-5.0); BUN Creatinine Ratio 15.8 (10-20); Bilirubin,Total 0.9 mg/dl (0.2-1.0); Calcium 7.9 mg/dl (8.6-10.3); Creatinine Clr Calc Pharmacy 66.2 ml/min; Est GFR (African American) 82.8 ml/min; Est GFR (Non-African American) 71.4 ml/min; Globulin 3.6 gm/dl (2.5-4.0); Magnesium 2.1 mg/dl (1.7-2.4); Phosphorus 2.2 mg/dl (2.5-4.9); Potassium 3.8 mmol/L (3.5-5.1); Total Protein 6.7 gm/dl (6.0-8.3)
--- NOTE | 2023-05-01 07:35 | Cardiology Progress Note ---
Date of Service May 01, 2023 Assessment & Plan (1) Paroxysmal atrial fibrillation: (2) Hydronephrosis: (3) UTI (urinary tract infection): (4) Aortic stenosis: Plan IMPRESSION: 77 year old male admitted for generalized weakness/malaise found to have an acute UTI and hydronephrosis. History of paroxysmal atrial fibrillation, having episodes of intermittent atrial fibrillation observed this admission with underlying bifascicular heart block. No profound bradycardia arrhythmias. Patient asymptomatic. PLAN: Recurrent PAF likely due to acute illness self converted to NSR- recommend treatment of underlying UTI per primary service/urology. 1. Continue beta arnel as ordered, tartrate 25 mg 4 times daily- consider transitioning to succinate formulary at discharge. 2. Start amiodarone 200 mg three times daily with meals, however, given bifascicular block caution use- monitor on telemetry while inpatient. 3. Continue anticoagulation with Eliquis 5 mg twice daily as ordered. 4. Monitor renal function, replete potassium for a goal of 4.0 and mag of 2.0. 5. Aortic stenosis classified as moderate on last echo 12/2022- will continue to monitor as an outpatient. Case discussed with Dr. Mathis. Will monitor. Admission and Anticipated Discharge Date Admission Date: April 29, 2023 Supervising Physician Co-Signing Physician Notes Patient seen and examined, chart, medications, telemetry reviewed. No acute cardiac implants but still having intermittent atrial fibrillation. Plan as above initiated amiodarone with continued telemetry, daily EKG. Keep potassium greater than 4 Subjective 77 year old male admitted for generalized weakness/malaise found to have an acute UTI and hydronephrosis. Hx of PAF, lapsed into course AFIB/Flutter this am around 03:30 am on 04/30. Self converted to NSR at 11:10 am, 04/30. Metoprolol tartrate increased to 25 mg 4 times daily. Anticoagulated with Eliquis. 05/01: Telemetry: Episodes of PAF with rates 110-460s. NSR rates in the 80s. Upon entrance into the room patient resting in bed without complaint. ROS limited due to significant hearing impairment. Remains asymptomatic with PAF. No acute concerns. No chest pain or shortness. No lightheadedness. No evidence of acute CHF- Denies orthopnea, PND, or lower extremity edema Review of Systems Review of Systems: All systems reviewed & are unremarkable except as noted in HPI & below (limited due to [place]) Physical Exam Constitutional: WD/WN, vitals as above no acute distress Eyes: PERRL, conjunctivae normal, anicteric sclerae Neck: normal visual inspection and trachea midline Respiratory: normal respiratory effort, lungs clear to auscultation no cough Cardiovascular: Rate/Rhythm: + tachycardic and + irregularly irregular Heart Sounds: normal S1, normal S2 and + murmur (+2/6 systolic murmur) Vessels: no JVD Extremities: no edema Gastrointestinal (Abdomen): normal bowel sounds, soft, nontender, no hepatosplenomegaly Skin: no rashes, warm and dry Psychiatric: Orientation: alert, oriented to person and oriented to place Results & Data Vital Signs (Past 12 Hours) Vital Signs Temp Pulse Pulse Resp BP BP Pulse Ox 05/01/23 07:08 115 H 05/01/23 03:55 37 C 66 18 114/63 93 05/01/23 00:00 79 04/30/23 23:23 37 C 66 18 116/60 94 04/30/23 20:00 O2 Del Method 05/01/23 07:08 05/01/23 03:55 Room Air 05/01/23 00:00 04/30/23 23:23 Room Air 04/30/23 20:00 Room Air Laboratory Results Cardiac Enzymes 05/01/23 Range/Units 06:52 AST 32 (13-39) U/L CBC 05/01/23 Range/Units 06:52 WBC 7.54 (4.8-10.8) K/ul RBC 4.40 L (4.70-6.10) M/uL Hgb 13.2 L (14.0-18.0) g/dl Hct 37.6 L (42.0-52.0) % Plt Count 91 L (130-400) K/uL Comprehensive Metabolic Panel 05/01/23 Range/Units 06:52 Sodium 129 L (136-145) mmol/L Potassium 3.8 (3.5-5.1) mmol/L Chloride 94 L (98-107) mmol/L Carbon Dioxide 29 (21-32) mmol/L BUN 16 (6-23) mg/dl Creatinine 1.01 (0.6-1.4) mg/dl Glucose 110 H (70-99(Fasting)) mg/dl Calcium 7.9 L (8.6-10.3) mg/dl AST 32 (13-39) U/L ALT 18 (7-52) U/L Alkaline Phosphatase 58 (34-104) U/L Total Protein 6.7 (6.0-8.3) gm/dl Albumin 3.1 L (3.4-5.0) gm/dl Intake and Output 04/30/23 05/01/23 05/01/23 22:59 06:59 14:59 Intake Total 1989 100 / 0 Output Total 2099 800 / 2900 Balance -110 / -610 -700 / -610 Intake: IV 1000 / 1200 Sodium Chloride 0.9% 1000ML 1, 1000 / 1000 000 ml @ 50 mls/hr IV .Q20H [facility] Rx#:[id number] Oral 990 / 1090 100 / 1090 Output: Urine Amount (Catheter) 2099 800 / 2900 Hanna/Indwelling 2099 800 / 2900 Other: Weight 88.4 kg Weight Measurement Method Built in [facility]
[2023-05-01 07:55] LABS: Hematocrit (blood only) 37.6 % (42.0-52.0); Hemoglobin 13.2 g/dl (14.0-18.0); Mean Corpuscular Hgb Conc 35.1 g/dL (32.0-36.0); Mean Corpuscular Volume 85.5 fL (80.0-100.0); Mean Platelet Volume 11.7 fL (9.4-12.4); Platelet Count 91 K/uL (130-400); RDW Coefficient of Variation 12.7 % (11.5-14.5); RDW Standard Deviation 39.5 fL (36.4-46.3); White Blood Count 7.54 K/ul (4.8-10.8)
[2023-05-01] MEDS: POTASSIUM CHLORIDE CRTAB 20 MEQ TABCR PO SCH (08:01)
[2023-05-01] MEDS: CEFEPIME 2,000 MG in SYRINGE 0 ML IV SCH ×2 (08:01→20:36)
[2023-05-01] MEDS: ATORVASTATIN 40 MG TAB PO SCH (08:01)
[2023-05-01] MEDS: APIXABAN 5 MG TABLET PO SCH ×2 (08:01→20:36)
[2023-05-01] MEDS: METOPROLOL TARTRATE 25 MG TAB PO SCH ×4 (08:01→20:37)
[2023-05-01] MEDS: TAMSULOSIN HCL 0.4 MG CAP PO SCH (08:01)
[2023-05-01] MEDS: INSULIN ASPART PER UNIT CHARGE SC SCH ×4 (08:03→21:14)
[2023-05-01] MEDS: POT PHOSPHATE MONOBASIC W/ SOD TAB PO SCH ×4 (08:54→20:38)
[2023-05-01 09:16] LABS: Anaplasmosis Smear(Rpt to DOH) Pos for Anaplasma
[2023-05-01] MEDS: DOXYCYCLINE HYCLATE 100 MG in DEXTROSE 5% 100 ML IV SCH ×2 (09:59→20:38)
[2023-05-01] MEDS: AMIODARONE 200 MG TAB PO SCH ×3 (10:00→16:24)
[2023-05-01] MEDS: ACETAMINOPHEN 325 MG TAB PO PRN (11:12)
--- NOTE | 2023-05-01 12:33 | Urology Progress Note ---
Date of Service May 01, 2023 Assessment & Plan (1) Urinary retention: (2) Hydronephrosis: (3) UTI (urinary tract infection): (4) BPH (benign prostatic hyperplasia): Plan 77yo/M who presented with weakness and altered mental status and admitted with presumed hyperglycemia and urinary tract infection. CT abd pelvis on arrival demonstrated chronic bladder outlet obstruction with resulting left greater than right hydronephrosis. Afebrile at present (Tmax 37.9C earlier this morning). Hemodynamically stable. Labs today show no leukocytosis, hemoglobin 13.2, creatinine normal. Urine culture with more than 3 types of organisms present, all moderate counts. On Cefepime and Doxycycline. Hanna intact and draining clear yellow urine. Continue supportive care and antibiotics. Maintain Hanna catheter. Okay to hand irrigate as needed for retention, suprapubic pain. Will arrange outpatient follow-up with our service for voiding trial and continued care. Urology will follow peripherally. Please contact us with any further questions, concerns, or changes in patient status. Admission and Anticipated Discharge Date Admission Date: April 29, 2023 Subjective Patient examined at bedside this AM. Awake, sitting up in bed on arrival. No acute distress. ROS limited due to significant hearing impairment. Denied any pain or discomfort. Hanna catheter intact, draining clear yellow urine Review of Systems Constitutional: as per Subjective / HPI Gastrointestinal: as per Subjective / HPI Genitourinary: + as per Subjective / HPI Physical Exam Constitutional: no acute distress ENMT: Ears: + hearing impairment Neurologic: awake Psychiatric: Orientation: alert and cooperative Genitourinary: Hanna catheter intact draining clear urine Results & Data Vital Signs (Past 12 Hours) Vital Signs Temp Pulse Pulse Resp BP Pulse Ox O2 Del Method 05/01/23 11:10 37.9 C H 144 H 22 125/85 95 Room Air 05/01/23 07:45 Room Air 05/01/23 07:49 37.8 C H 130 H 22 128/84 94 Room Air 05/01/23 07:08 115 H 05/01/23 03:55 37 C 66 18 114/63 93 Room Air PG Care Time/CCT Total # of Minutes Spent Total Time Spent with Patient: Total time spent is greater than 50% in coordination of care (as documented) at patient's floor/unit and/or counseling patient: Coding Level of Care Code 89129 SUB INP/OBS CARE 235MIN Diagnoses Urinary retention R33.9 Hydronephrosis N13.30 UTI (urinary tract infection) N39.0 BPH (benign prostatic hyperplasia) N40.0
[2023-05-01] MEDS ORDERED: GADOBUTROL 65ML VIAL IV ONE (15:51)
--- NOTE | 2023-05-01 16:03 | Hospitalist Progress Note ---
Date of Service May 01, 2023 Assessment & Plan (1) UTI (urinary tract infection): (2) Urinary retention: (3) Paroxysmal atrial fibrillation with RVR: (4) Diabetes mellitus, type II: (5) Hyponatremia: (6) Hypokalemia: Plan 77-year-old male with multiple medical problems including chronic diastolic CHF, paroxysmal A-fib on Eliquis, presented to ED not feeling well for past week. Not taking insulin because of poor appetite and blood sugar 400s in the ED, also found to have urinary retention and Hanna was placed. Per , patient has been living in [place] with limited access to electricity and running water for the last few months CT A/P- Chronic bladder outlet obstruction is seen with resulting left greater than right hydronephrosis. No acute abnormality. Xray rt calcaneus- No radiographic evidence of osteomyelitis. 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 Will consider discontinuation of empiric ABx if continues to improve with doxy. . Urine retention-status post Hanna. Urology following. Continue Flomax. Hyponatremia-mild, relatively stable, recheck in am Hypokalemia- resolved Paroxysmal A-fib with RVR- Tele reviewed. Still with Afib despite escalation of Lopressor to qid. Amio added per cardio today. Already on eliquis. Cardiology on board Right heel ulcer- does not look infected. Xray does not show OM. Follows with wound care and already improving per . continue wound care. Valvular heart disease-echo shows moderately severe valve aortic stenosis, mild MR, trace TR, EF 50 to 55%. Diabetes mellitus type 2- continue lantus, SSI. adjust as indicated Hearing loss- recommend hearing aids Seen by psych- recommended OP dementia/memory workup with brain MRI if concerns for behavioral changes persist. Strongly recommend hearing aids/corrective device; he may be isolating due to frustration of not being able to communicate when around others. Will order MRI brain per recommendation. DVT ppx- Eliquis Dispo- Amio loaded for A fib. Pending clinical improvement. MRI pending. PT OT eval Admission and Anticipated Discharge Date Admission Date: April 29, 2023 Subjective Seen and examined at bedside. Very hard of hearing. States he got good sleep. Denies any CP, palpitations, fever, chills. No N/V. Appetite normal. Review of Systems Review of Systems: All systems reviewed & are unremarkable except as noted in Subjective Physical Exam Physical Exam: General: Sleeping, easily arousable, not in acute distress, on room air HEENT: ARNOLDO, MMM Chest: Fair breath sounds bilaterally, no wheezes or crackles CVS: Irregular, normal heart sounds, no murmur Abdomen: Soft, non tender, not distended, normal bowel sounds Neuro: Sleeping, easily arousable, very hard of hearing, answering simple questions Extremities: No cyanosis, clubbing or edema Skin: Left heel wound noted- doesn't look deep or infected- follows with wound care 3x/wk and states improving Results & Data Results & Data Vital Signs (Past 12 Hours) Vital Signs Temp Pulse Pulse Resp BP BP Pulse Ox 05/01/23 12:36 36.5 C 52 L 18 120/82 94 05/01/23 12:33 36.4 C L 150 H 22 117/73 95 05/01/23 11:10 37.9 C H 144 H 22 125/85 95 05/01/23 07:45 05/01/23 07:49 37.8 C H 130 H 22 128/84 94 05/01/23 07:08 115 H O2 Del Method 05/01/23 12:36 Room Air 05/01/23 12:33 Room Air 05/01/23 11:10 Room Air 05/01/23 07:45 Room Air 05/01/23 07:49 Room Air 05/01/23 07:08
--- NOTE | 2023-05-01 16:43 | Magnetic Resonance Report ---
MR brain wo/w con CLINICAL HISTORY: AMS, behavioral issues TECHNIQUE: Multiplanar and multisequence MR images of the brain were obtained prior to and following administration of gadolinium contrast. Comparison: None available at the time of this dictation. FINDINGS: No abnormal restricted diffusion is identified. Foci of T2 and FLAIR hyperintensity are noted in the paraventricular areas consistent with chronic small vessel ischemic disease. Ex vacuo ventriculomegal y and sulcal enlargement is noted compatible with diffuse volume loss. No mass or abnormal enhancemen t is seen. There is no mass effect or midline shift. There is no evidence of acute intraparenchymal h emorrhage. No extra axial fluid collections are seen. The corpus callosum, pituitary gland, and cereb ellar tonsils appear grossly unremarkable. Flow voids of the major intracranial arterial vessels are identified. The imaged portions of the para nasal sinuses, mastoid air cells, and orbits are unremarkable. IMPRESSION: No acute abnormalities. ACT 112: Negative or not required by law. Electronically signed by: Anderson Serra M.D. 05/01/2023 4:40 PM
[2023-05-01] MEDS: LANTUS PER UNIT CHARGE SQ SCH ×2 (21:17→21:44)
[2023-05-02] MEDS: INSULIN ASPART PER UNIT CHARGE SC SCH ×4 (08:17→22:07)
[2023-05-02] MEDS: CEFEPIME 2,000 MG in SYRINGE 0 ML IV SCH (08:18)
[2023-05-02] MEDS: APIXABAN 5 MG TABLET PO SCH ×2 (08:18→20:43)
[2023-05-02] MEDS: ATORVASTATIN 40 MG TAB PO SCH (08:18)
[2023-05-02] MEDS: TAMSULOSIN HCL 0.4 MG CAP PO SCH (08:19)
[2023-05-02] MEDS: POTASSIUM CHLORIDE CRTAB 20 MEQ TABCR PO SCH (08:19)
[2023-05-02] MEDS: METOPROLOL TARTRATE 25 MG TAB PO SCH ×2 (08:23→20:43)
[2023-05-02] MEDS: AMIODARONE 200 MG TAB PO SCH ×3 (08:23→18:03)
[2023-05-02] MEDS: DOXYCYCLINE HYCLATE 100 MG in DEXTROSE 5% 100 ML IV SCH ×2 (08:37→20:45)
[2023-05-02 08:52] LABS: Hematocrit (blood only) 33.7 % (42.0-52.0); Hemoglobin 11.8 g/dl (14.0-18.0); Mean Corpuscular Hemoglobin 29.7 pg (25.0-34.0); Mean Corpuscular Volume 84.9 fL (80.0-100.0); Mean Platelet Volume 11.9 fL (9.4-12.4); Platelet Count 86 K/uL (130-400); RDW Coefficient of Variation 12.6 % (11.5-14.5); RDW Standard Deviation 38.5 fL (36.4-46.3); Red Blood Count 3.97 M/uL (4.70-6.10); White Blood Count 8.85 K/ul (4.8-10.8)
[2023-05-02 09:04] LABS: Calcium 7.9 mg/dl (8.6-10.3); Creatinine Clr Calc Pharmacy 66.7 ml/min; Est GFR (African American) 83.8 ml/min; Est GFR (Non-African American) 72.3 ml/min; Magnesium 1.9 mg/dl (1.7-2.4); Phosphorus 2.6 mg/dl (2.5-4.9); Potassium 3.4 mmol/L (3.5-5.1)
[2023-05-02] MEDS: ACETAMINOPHEN 325 MG TAB PO PRN ×2 (09:48→23:56)
--- NOTE | 2023-05-02 12:03 | Cardiology Progress Note ---
Date of Service May 02, 2023 Assessment & Plan (1) Paroxysmal atrial fibrillation: (2) Hydronephrosis: (3) UTI (urinary tract infection): (4) Aortic stenosis: Plan Reduce metoprolol to tartrate to 25 mg twice daily. Continue oral amiodarone 200 mg 3 times daily. Oral anticoagulation with Eliquis 5 mg twice daily. Monitor renal function. Replace potassium as indicated. Surveillance of moderate to severe aortic stenosis with repeat echocardiography in the outpatient setting. Addendum: ECG demonstrating prolonged QT. Recommend repeat ECG with further recommendations regarding amiodarone dosing pending review. Admission and Anticipated Discharge Date Admission Date: April 29, 2023 Subjective 77-year-old male seen examined at the bedside. Extremely hard of hearing. Continues to note headache over the past 3 days. Internal medicine aware of symptoms. MRI of the brain unremarkable. Denies chest pain or shortness of breath. Telemetry reveals sinus rhythm with PACs, heart rate 60-70s beats per minute. Review of Systems Review of Systems: Other (Incomplete review of systems due to hearing impairment) Physical Exam Constitutional: well nourished; no acute distress Respiratory: no respiratory distress, no labored breathing and no retractions Auscultation: no crackles, no rales, no rhonchi and no wheezes Cardiovascular: Rate/Rhythm: + irregularly irregular Heart Sounds: normal S1, normal S2 and + murmur (3/6 systolic ejection) Extremities: no edema Gastrointestinal (Abdomen): Inspection/Auscultation: abdomen not distended Percussion/Palpation: abdomen nontender, no guarding and abdomen not rigid Neurologic: CN's II-XI intact bilaterally and moves all extremities Motor/Sensory: no tremor Results & Data Vital Signs (Past 12 Hours) Vital Signs Temp Pulse Pulse Resp BP BP Pulse Ox 05/02/23 11:00 36.4 C L 52 L 18 109/71 94 05/02/23 07:57 05/02/23 07:37 37.2 C 63 16 104/68 92 05/02/23 06:22 84 05/02/23 04:04 36.9 C 81 18 121/72 93 05/02/23 01:48 71 O2 Del Method 05/02/23 11:00 Room Air 05/02/23 07:57 Room Air 05/02/23 07:37 Room Air 05/02/23 06:22 07/01/23 04:04 Room Air 05/02/23 01:48 Laboratory Results CBC 05/02/23 Range/Units 08:25 WBC 8.85 (4.8-10.8) K/ul RBC 3.97 L (4.70-6.10) M/uL Hgb 11.8 L (14.0-18.0) g/dl Hct 33.7 L (42.0-52.0) % Plt Count 86 L (130-400) K/uL Comprehensive Metabolic Panel 05/02/23 Range/Units 08:25 Sodium 130 L (136-145) mmol/L Potassium 3.4 L (3.5-5.1) mmol/L Chloride 95 L (98-107) mmol/L Carbon Dioxide 30 (21-32) mmol/L BUN 22 (6-23) mg/dl Creatinine 1.00 (0.6-1.4) mg/dl Glucose 136 H (70-99(Fasting)) mg/dl Calcium 7.9 L (8.6-10.3) mg/dl Intake and Output 05/01/23 05/02/23 05/02/23 22:59 06:59 14:59 Intake Total 810 / 1550 150 / 1550 110 / 110 Output Total 625 / 1075 450 / 1075 Balance 185 / 475 -300 / 475 110 / 110 Intake: IV 110 / 220 110 / 110 Doxycycline Hyclate 100 mg In 110 / 220 110 / 110 Dextrose 5% 100 ml @ 50 mls/hr IV Q12H [facility] Rx#:[id number] Oral 700 / 1330 150 / 1330 Output: Urine 275 / 275 Urine Amount (Catheter) 350 / 800 450 / 800 Hanna/Indwelling 350 / 800 450 / 800 Other: Weight 88.4 kg 87.9 kg Weight Measurement Method Built in [facility]
--- NOTE | 2023-05-02 12:54 | Hospitalist Progress Note ---
Date of Service May 02, 2023 Assessment & Plan (1) Anaplasmosis: (2) Paroxysmal atrial fibrillation with RVR: (3) Hypokalemia: (4) Urinary retention: (5) Diabetes mellitus, type II: (6) Hyponatremia: Plan 77-year-old male with multiple medical problems including chronic diastolic CHF, paroxysmal A-fib on Eliquis, presented to ED not feeling well for past week. Not taking insulin because of poor appetite and blood sugar 400s in the ED, also found to have urinary retention and Hanna was placed. Per , patient has been living in [place] with limited access to electricity and running water for the last few months CT A/P- Chronic bladder outlet obstruction is seen with resulting left greater than right hydronephrosis. No acute abnormality. Xray rt calcaneus- No radiographic evidence of osteomyelitis. 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 Lyme negative. Abnormal UA-urine culture negative. Empiric cefepime discontinued 05/02. Monitor. Urine retention-status post Hanna. Urology following. Continue Flomax. Hyponatremia-mild, relatively stable, recheck in am Hypokalemia-mild, on oral supplementation Paroxysmal A-fib with RVR- Tele reviewed. Lopressor dose reduced per cardiology. On Amio loading per cardiology started 05/01. Already on eliquis. Cardiology on board Prolonged QTc- QTc worsened to 537. On amio load- cardio aware. Avoid further QT prolonging meds, replete electrolytes. Valvular heart disease-echo shows moderately severe valve aortic stenosis, mild MR, trace TR, EF 50 to 55%. Repeat echo as outpatient per cardiology Right heel ulcer- does not look infected. Xray does not show OM. Follows with wound care and already improving per . continue wound care. Diabetes mellitus type 2- continue lantus, SSI. adjust as indicated Hearing loss- recommend hearing aids Seen by psych- recommended OP dementia/memory workup with brain MRI if concerns for behavioral changes persist. Strongly recommend hearing aids/corrective device; he may be isolating due to frustration of not being able to communicate when around others. MRI brain with no acute findings. DVT ppx- Eliquis Dispo- Amio loaded for A fib. PT OT eval Admission and Anticipated Discharge Date Admission Date: April 29, 2023 Subjective Patient was seen and examined at bedside. He is sleepy but easily arousable. States he feels tired. No fever, chills, chest pain, shortness of breath, nausea or vomiting. Review of Systems Review of Systems: All systems reviewed & are unremarkable except as noted in Subjective Physical Exam Physical Exam: General: Sleeping, easily arousable, not in acute distress, on room air HEENT: ARNOLDO, MMM Chest: Fair breath sounds bilaterally, no wheezes or crackles CVS: Regular, normal heart sounds, no murmur Abdomen: Soft, non tender, not distended, normal bowel sounds Neuro: Sleeping, easily arousable, very hard of hearing, answering simple questions Extremities: No cyanosis, clubbing or edema Skin: Left heel wound noted- doesn't look deep or infected- follows with wound care 3x/wk and states improving Results & Data Results & Data Vital Signs (Past 12 Hours) Vital Signs Temp Pulse Pulse Resp BP BP Pulse Ox 05/02/23 11:00 36.4 C L 52 L 18 109/71 94 05/02/23 07:57 05/02/23 07:37 37.2 C 63 16 104/68 92 05/02/23 06:22 84 05/02/23 04:04 36.9 C 81 18 121/72 93 05/02/23 01:48 71 O2 Del Method 05/02/23 11:00 Room Air 05/02/23 07:57 Room Air 05/02/23 07:37 Room Air 05/02/23 06:22 05/02/23 04:04 Room Air 05/02/23 01:48 Laboratory Results Short CBC 05/02/23 Range/Units 08:25 WBC 8.85 (4.8-10.8) K/ul Hgb 11.8 L (14.0-18.0) g/dl Hct 33.7 L (42.0-52.0) % Plt Count 86 L (130-400) K/uL BMP 05/02/23 08:25 Sodium 130 L Potassium 3.4 L Chloride 95 L Carbon Dioxide 30 BUN 22 Creatinine 1.00 Glucose 136 H Calcium 7.9 L Diagnostic Findings Current Inpatient Medications Acetaminophen (Acetaminophen 325 Mg Tab) 650 mg PO Q4H PRN PRN Reason: Pain or Fever Stop: 05/29/23 22:26 Last Admin: 05/02/23 09:48 Dose: 650 mg Amiodarone HCl (Amiodarone 200 Mg Tab) 200 mg PO TIDM [facility] Stop: 05/31/23 09:29 Last Admin: 05/02/23 08:23 Dose: 200 mg Apixaban (Apixaban 5 Mg Tablet) 5 mg PO BID [facility] Stop: 05/29/23 22:26 Last Admin: 05/02/23 08:18 Dose: 5 mg Atorvastatin Calcium (Atorvastatin 40 Mg Tab) 40 mg PO QAM [facility] Stop: 05/30/23 08:59 Last Admin: 05/02/23 08:18 Dose: 40 mg Dextrose (Dextrose 50% 50 Ml Syringe) 25 - 50 ml IV UD PRN; Protocol PRN Reason: Hypoglycemia Protocol Stop: 05/29/23 22:26 Glucagon (Glucagon For Inj 1 Mg Vial) 1 mg SQ UD PRN; Protocol PRN Reason: Hypoglycemia Protocol Stop: 05/29/23 22:26 Glucose (Glucose 40% Gel 15 Gm Tube) 15 - 30 gm PO UD PRN; Protocol PRN Reason: Hypoglycemia Protocol Stop: 05/29/23 22:26 Glucose (Glucose 10 Tab/Tube) 4 - 8 tab PO UD PRN; Protocol PRN Reason: Hypoglycemia Treatment Stop: 05/29/23 22:26 Promethazine HCl 6.25 mg/ (Sodium Chloride) 50.25 mls @ 201 mls/hr IV Q6H PRN PRN Reason: Nausea And Vomiting Stop: 05/29/23 22:26 Doxycycline Hyclate 100 mg/ (Dextrose) 110 mls @ 50 mls/hr IV Q12H [facility] Stop: 05/15/23 09:29 Last Infusion: 05/02/23 10:39 Dose: Infused Insulin Aspart (Insulin Aspart Per Unit Charge) 0 units SC ACHS [facility] Stop: 05/29/23 22:26 Last Admin: 05/02/23 08:17 Dose: 2 units Insulin Glargine (Lantus Per Unit Charge) 40 units SQ HS [facility] Stop: 05/31/23 21:29 Last Admin: 05/01/23 21:44 Dose: 10 units Metoprolol Tartrate (Metoprolol Tartrate 25 Mg Tab) 25 mg PO BID [facility] Stop: 06/01/23 20:59 Miscellaneous (Carbohydrates For Hypoglycemia ) 15 - 30 gm PO UD PRN PRN Reason: Hypoglycemia Protocol Stop: 05/29/23 22:26 Potassium Chloride (Potassium Chloride Crtab 20 Meq Tabcr) 40 meq PO DAILY [facility] Stop: 05/31/23 08:59 Last Admin: 05/02/23 08:19 Dose: 40 meq Tamsulosin HCl (Tamsulosin Hcl 0.4 Mg Cap) 0.4 mg PO QAM [facility] Stop: 05/30/23 08:59 Last Admin: 05/02/23 08:19 Dose: 0.4 mg
[2023-05-02] MEDS ORDERED: POTASSIUM CHLORIDE CRTAB 20 MEQ TABCR PO ONE (13:04)
[2023-05-02] MEDS: LANTUS PER UNIT CHARGE SQ SCH (22:07)
[2023-05-03 06:31] LABS: Hematocrit (blood only) 31.7 % (42.0-52.0); Hemoglobin 10.8 g/dl (14.0-18.0); Mean Corpuscular Hemoglobin 29.8 pg (25.0-34.0); Mean Corpuscular Hgb Conc 34.1 g/dL (32.0-36.0); Mean Corpuscular Volume 87.3 fL (80.0-100.0); Mean Platelet Volume 11.9 fL (9.4-12.4); Platelet Count 102 K/uL (130-400); RDW Coefficient of Variation 12.9 % (11.5-14.5); RDW Standard Deviation 41.1 fL (36.4-46.3); Red Blood Count 3.63 M/uL (4.70-6.10); White Blood Count 10.43 K/ul (4.8-10.8)
[2023-05-03 06:53] LABS: BUN Creatinine Ratio 26.6 (10-20); Creatinine Clr Calc Pharmacy 70.6 ml/min; Est GFR (African American) 90.3 ml/min; Est GFR (Non-African American) 77.9 ml/min; Potassium 3.9 mmol/L (3.5-5.1)
[2023-05-03] MEDS: INSULIN ASPART PER UNIT CHARGE SC SCH ×4 (08:28→20:54)
[2023-05-03] MEDS: AMIODARONE 200 MG TAB PO SCH (08:29)
[2023-05-03] MEDS: ATORVASTATIN 40 MG TAB PO SCH (08:30)
[2023-05-03] MEDS: APIXABAN 5 MG TABLET PO SCH ×2 (08:30→20:53)
[2023-05-03] MEDS: POTASSIUM CHLORIDE CRTAB 20 MEQ TABCR PO SCH (08:31)
[2023-05-03] MEDS: DOXYCYCLINE HYCLATE 100 MG in DEXTROSE 5% 100 ML IV SCH ×2 (08:32→20:55)
[2023-05-03] MEDS: TAMSULOSIN HCL 0.4 MG CAP PO SCH (08:32)
[2023-05-03] MEDS: METOPROLOL TARTRATE 25 MG TAB PO SCH ×3 (08:33→21:42)
[2023-05-03] MEDS: ACETAMINOPHEN 325 MG TAB PO PRN ×2 (08:36→21:37)
--- NOTE | 2023-05-03 11:19 | Hospitalist Progress Note ---
Date of Service May 03, 2023 Assessment & Plan (1) Anaplasmosis: (2) Paroxysmal atrial fibrillation with RVR: (3) Hypokalemia: (4) Urinary retention: (5) Diabetes mellitus, type II: (6) Hyponatremia: Plan 77-year-old male with multiple medical problems including chronic diastolic CHF, paroxysmal A-fib on Eliquis, presented to ED not feeling well for past week. Not taking insulin because of poor appetite and blood sugar 400s in the ED, also found to have urinary retention and Hanna was placed. Per , patient has been living in his car [place] a [place] property with limited access to electricity and running water for the last few months CT A/P- Chronic bladder outlet obstruction is seen with resulting left greater than right hydronephrosis. No acute abnormality. Xray rt calcaneus- No radiographic evidence of osteomyelitis. 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 Urine retention-status post Hanna. Urology following. Continue Flomax. Hyponatremia-mild, relatively stable, recheck in am Hypokalemia- resolved with oral supplementation Paroxysmal A-fib with RVR- Tele reviewed. Initially lopressor uptitrated but was still having Afib with RVR, hence amion was started by cardio on 05/01 but had prolonged QTc >500, hence amio on hold today. Repeat EKG in am. Continue lopressor, eliquis and tele. Prolonged QTc- QTc still >500. Amio on hold per cardio. Avoid further QT prolonging meds. Valvular heart disease-echo shows moderately severe valve aortic stenosis, mild MR, trace TR, EF 50 to 55%. Repeat echo as outpatient per cardiology Right heel ulcer- does not look infected. Xray does not show OM. Follows with wound care and already improving per . continue wound care. Diabetes mellitus type 2- continue lantus, SSI. adjust as indicated Hearing loss- recommend hearing aids Seen by psych- recommended OP dementia/memory workup with brain MRI if concerns for behavioral changes persist. Strongly recommend hearing aids/corrective device; he may be isolating due to frustration of not being able to communicate when around others. MRI brain with no acute findings. DVT ppx- Eliquis Dispo- On amio load for A fib requiring inpatient monitoring. Also will need PT OT Eval Admission and Anticipated Discharge Date Admission Date: April 29, 2023 Subjective Patient was seen and examined at bedside. He feels much better and is asking when he can go home. He is fully awake alert today and had done his breakfast. No fever, chills, chest pain, shortness of breath, nausea or vomiting Review of Systems Review of Systems: All systems reviewed & are unremarkable except as noted in Subjective Physical Exam Physical Exam: General: Sitting in bed not in acute distress, on room air HEENT: [place], MMM Chest: Fair breath sounds bilaterally, no wheezes or crackles CVS: Regular, normal heart sounds, no murmur Abdomen: Soft, non tender, not distended, normal bowel sounds Neuro: Awake, alert, very hard of hearing, answering questions appropriately Extremities: No cyanosis, clubbing or edema Skin: Left heel wound noted- doesn't look deep or infected- follows with wound care 3x/wk and improving Results & Data Results & Data Vital Signs (Past 12 Hours) Vital Signs Temp Pulse Pulse Resp BP BP Pulse Ox 05/03/23 06:44 56 L 05/03/23 07:24 37.0 C 53 L 16 126/72 93 05/03/23 02:57 36.6 C 53 L 18 121/72 94 O2 Del Method 05/03/23 06:44 05/03/23 07:24 Room Air 05/03/23 02:57 Room Air Laboratory Results Short CBC 05/03/23 Range/Units 05:44 WBC 10.43 (4.8-10.8) K/ul Hgb 10.8 L (14.0-18.0) g/dl Hct 31.7 L (42.0-52.0) % Plt Count 102 L (130-400) K/uL BMP 05/03/23 05:44 Sodium 132 L Potassium 3.9 Chloride 98 Carbon Dioxide 29 BUN 25 H Creatinine 0.94 Glucose 91 Calcium 8.0 L Medications Administered Current Inpatient Medications Acetaminophen (Acetaminophen 325 Mg Tab) 650 mg PO Q4H PRN PRN Reason: Pain or Fever Stop: 05/29/23 22:26 Last Admin: 05/03/23 08:36 Dose: 650 mg Apixaban (Apixaban 5 Mg Tablet) 5 mg PO BID DARIN Stop: 05/29/23 22:26 Last Admin: 05/03/23 08:30 Dose: 5 mg Atorvastatin Calcium (Atorvastatin 40 Mg Tab) 40 mg PO QAM [facility]IN Stop: 05/30/23 08:59 Last Admin: 05/03/23 08:30 Dose: 40 mg Dextrose (Dextrose 50% 50 Ml Syringe) 25 - 50 ml IV UD PRN; Protocol PRN Reason: Hypoglycemia Protocol Stop: 05/29/23 22:26 Glucagon (Glucagon For Inj 1 Mg Vial) 1 mg SQ UD PRN; Protocol PRN Reason: Hypoglycemia Protocol Stop: 05/29/23 22:26 Glucose (Glucose 40% Gel 15 Gm Tube) 15 - 30 gm PO UD PRN; Protocol PRN Reason: Hypoglycemia Protocol Stop: 05/29/23 22:26 Glucose (Glucose 10 Tab/Tube) 4 - 8 tab PO UD PRN; Protocol PRN Reason: Hypoglycemia Treatment Stop: 05/29/23 22:26 Promethazine HCl 6.25 mg/ (Sodium Chloride) 50.25 mls @ 201 mls/hr IV Q6H PRN PRN Reason: Nausea And Vomiting Stop: 05/29/23 22:26 Doxycycline Hyclate 100 mg/ (Dextrose) 110 mls @ 50 mls/hr IV Q12H [facility] Stop: 05/15/23 09:29 Last Infusion: 05/03/23 10:47 Dose: Infused Insulin Aspart (Insulin Aspart Per Unit Charge) 0 units SC ACHS D[facility] Stop: 05/29/23 22:26 Last Admin: 05/03/23 08:28 Dose: 3 units Insulin Glargine (Lantus Per Unit Charge) 40 units SQ HS D[facility]IN Stop: 05/31/23 21:29 Last Admin: 05/02/23 22:07 Dose: 40 units Metoprolol Tartrate (Metoprolol Tartrate 25 Mg Tab) 25 mg PO Q8 [facility] Stop: 06/02/23 13:59 Miscellaneous (Carbohydrates For Hypoglycemia ) 15 - 30 gm PO UD PRN PRN Reason: Hypoglycemia Protocol Stop: 05/29/23 22:26 Potassium Chloride (Potassium Chloride Crtab 20 Meq Tabcr) 40 meq PO DAILY DARIN Stop: 05/31/23 08:59 Last Admin: 05/03/23 08:31 Dose: 40 meq Tamsulosin HCl (Tamsulosin Hcl 0.4 Mg Cap) 0.4 mg PO QAM [facility] Stop: 05/30/23 08:59 Last Admin: 05/03/23 08:32 Dose: 0.4 mg
[2023-05-03] MEDS ORDERED: POTASSIUM CHLORIDE CRTAB 20 MEQ TABCR PO STA (11:33)
[2023-05-03] MEDS ORDERED: AMIODARONE 200 MG TAB PO SCH (11:36)
--- NOTE | 2023-05-03 11:40 | Cardiology Progress Note ---
Date of Service May 03, 2023 Assessment & Plan (1) Paroxysmal atrial fibrillation: (2) Prolonged QT interval: (3) Anaplasmosis: (4) Hydronephrosis: (5) UTI (urinary tract infection): (6) Aortic stenosis: Plan Repeat ECG today demonstrating prolonged QT interval. Hold amiodarone. Increase metoprolol tartrate to 25 mg 3 times daily. Repeat ECG in a.m.. Continue oral anticoagulation with Eliquis. Replace potassium as indicated. Surveillance of moderate to severe aortic stenosis with repeat echocardiography in the outpatient setting. Admission and Anticipated Discharge Date Admission Date: April 29, 2023 Subjective Patient seen examined the bedside. Hard of hearing. Denies chest pain or palpitations. Telemetry reveals sinus rhythm with PACs. Repeat ECG this a.m. demonstrating prolonged QT however somewhat improved compared to 05/02/2023. Previously noted headache unchanged. Review of Systems Review of Systems: All systems reviewed & are unremarkable except as noted in Subjective Physical Exam Constitutional: well nourished; no acute distress Respiratory: no respiratory distress, no labored breathing and no retractions Auscultation: no crackles, no rales, no rhonchi and no wheezes Cardiovascular: Rate/Rhythm: + irregularly irregular Heart Sounds: normal S1, normal S2 and + murmur (3/6 systolic ejection) Extremities: no edema Gastrointestinal (Abdomen): Inspection/Auscultation: abdomen not distended Percussion/Palpation: abdomen nontender, no guarding and abdomen not rigid Neurologic: CN's II-XI intact bilaterally and moves all extremities Motor/Sensory: no tremor Results & Data Vital Signs (Past 12 Hours) Vital Signs Temp Pulse Pulse Resp BP BP Pulse Ox 05/03/23 11:00 36.7 C 59 L 18 120/70 97 05/03/23 06:44 56 L 05/03/23 07:24 37.0 C 53 L 16 126/72 93 05/03/23 02:57 36.6 C 53 L 18 121/72 94 O2 Del Method 05/03/23 11:00 Room Air 05/03/23 06:44 05/03/23 07:24 Room Air 05/03/23 02:57 Room Air Laboratory Results CBC 05/03/23 Range/Units 05:44 WBC 10.43 (4.8-10.8) K/ul RBC 3.63 L (4.70-6.10) M/uL Hgb 10.8 L (14.0-18.0) g/dl Hct 31.7 L (42.0-52.0) % Plt Count 102 L (130-400) K/uL Comprehensive Metabolic Panel 05/03/23 Range/Units 05:44 Sodium 132 L (136-145) mmol/L Potassium 3.9 (3.5-5.1) mmol/L Chloride 98 (98-107) mmol/L Carbon Dioxide 29 (21-32) mmol/L BUN 25 H (6-23) mg/dl Creatinine 0.94 (0.6-1.4) mg/dl Glucose 91 (70-99(Fasting)) mg/dl Calcium 8.0 L (8.6-10.3) mg/dl Intake and Output 05/02/23 05/03/23 05/03/23 22:59 06:59 14:59 Intake Total 950 / 1460 400 / 1460 110 / 110 Output Total 1150 / 1575 425 / 1575 Balance -200 / -115 -25 / -115 110 / 110 Intake: IV 110 / 220 110 / 110 Doxycycline Hyclate 100 mg In 110 / 220 110 / 110 Dextrose 5% 100 ml @ 50 mls/hr IV Q12H [facility] Rx#:[id number] Oral 840 / 1240 400 / 1240 Output: Urine Amount (Catheter) 1150 / 1575 425 / 1575 Hanna/Indwelling 1150 / 1575 425 / 1575 Other: Weight 86.9 kg Weight Measurement Method Built in [facility]
[2023-05-03] MEDS: LANTUS PER UNIT CHARGE SQ SCH (20:54)
[2023-05-04] MEDS: METOPROLOL TARTRATE 25 MG TAB PO SCH ×3 (06:06→21:09)
--- NOTE | 2023-05-04 06:09 | Electrocardiogram Report ---
Test Reason : Blood Pressure : / mmHG Vent. Rate : 076 BPM Atrial Rate : 057 BPM P-R Int : 144 ms QRS Dur : 120 ms QT Int : 478 ms P-R-T Axes : 069 -56 -41 degrees QTc Int : 537 ms Sinus bradycardia with frequent Premature supraventricular complexes Right bundle branch block Left anterior fascicular block Bifascicular block Voltage criteria for left ventricular hypertrophy Abnormal ECG When compared with ECG of 30-APR-2023 09:12, Sinus rhythm has replaced Atrial fibrillation QT has lengthened T wave inversion now evident in Inferolateral leads Confirmed by Ky Minaya ([id number]) on 05/04/2023 6:09:12 AM Referred By: REFERRED SELF Confirmed By:Ky Minaya
[2023-05-04 07:07] LABS: BUN Creatinine Ratio 23.7 (10-20); Calcium 8.3 mg/dl (8.6-10.3); Creatinine Clr Calc Pharmacy 71.4 ml/min; Est GFR (African American) 91.5 ml/min; Est GFR (Non-African American) 78.9 ml/min; Magnesium 1.9 mg/dl (1.7-2.4); Potassium 4.1 mmol/L (3.5-5.1)
[2023-05-04] MEDS: DOXYCYCLINE HYCLATE 100 MG in DEXTROSE 5% 100 ML IV SCH ×2 (08:53→21:08)
[2023-05-04] MEDS: INSULIN ASPART PER UNIT CHARGE SC SCH ×4 (08:53→21:08)
[2023-05-04] MEDS: ATORVASTATIN 40 MG TAB PO SCH (08:54)
[2023-05-04] MEDS: APIXABAN 5 MG TABLET PO SCH ×2 (08:54→21:09)
[2023-05-04] MEDS: TAMSULOSIN HCL 0.4 MG CAP PO SCH (08:54)
[2023-05-04] MEDS: POTASSIUM CHLORIDE CRTAB 20 MEQ TABCR PO SCH (08:54)
[2023-05-04] MEDS ORDERED: METOPROLOL TARTRATE 25 MG TAB PO ONE (09:28)
--- NOTE | 2023-05-04 11:54 | Cardiology Progress Note ---
Date of Service May 04, 2023 Assessment & Plan (1) Paroxysmal atrial fibrillation: (2) Prolonged QT interval: (3) Anaplasmosis: (4) Hydronephrosis: (5) UTI (urinary tract infection): (6) Aortic stenosis: Plan Unfortunately metoprolol was held over the last 24 hours due to mild sinus bradycardia (HR 55-60 bpm) and therefore, patient reverted back to atrial fibrillation RVR at 8:28 this morning. He is asymptomatic. Metoprolol tartrate was held this morning, so one dose reordered now at 25 mg daily. Continue metoprolol tartrate q 8 hours as ordered. Continue Eliquis 5 mg BID. Will not resume amiodarone given borderline prolonged QT intervals. Surveillance of moderate to severe aortic stenosis with repeat echocardiography in the outpatient setting. Continue treatment for anaplasmosis and UTI per hospitalist. Case discussed with Dr. Alegria I spent a total of 35 minutes on the date of service in preparation, delivery, and documentation of the care provided to this patient, excluding any time spent in the performance of separately billed services. Shelley Russell PA-C Department of Cardiology, [facility] This chart was completed in part utilizing Speech Voice Recognition Software. Grammatical errors, random word insertions, pronoun errors, and incomplete sentences are an occasional consequence of this system due to software limitations, ambient noise, and hardware issues. Any formal questions or concerns about the content, text, or information contained within the body of this dictation should be directly addressed to the provider for clarification. Admission and Anticipated Discharge Date Admission Date: April 29, 2023 Supervising Physician Co-Signing Physician Notes Supervising Physician Attestation: I have personally performed a history and physical examination on the patient. I agree with the physician health education assistant's findings and plan as documented with the following additions. Subjective: Patient with out acute cardiac complaint. Difficult to account for his mental status given underlying hearing difficulty. He has been in and out of atrial fibrillation. At most recent review of telemetry as of 2:36 PM today, he was back in sinus rhythm with premature atrial contractions Exam: Cardiovascular: Regular rhythm, 1/6 systolic murmur, trace edema, lower extremity leg wraps noted : Hanna catheter in place draining clear yellow urine Data: EKG performed 05/04/2023 at 9:23 AM revealed atrial fibrillation 112 bpm with bifascicular block, QTc 570, however this must be interpreted in the setting of his wide QRS duration of 120 ms, and T wave inversions. Assessment and Plan: Paroxysmal atrial fibrillation -Agree with metoprolol rather than amiodarone due to concerns of QT interval prolongation in the setting of underlying bifascicular block. -Continue anticoagulation with Eliquis. -Continue doxycycline for the treatment of suspected anaplasmosis. -Ongoing observation for moderate to severe aortic stenosis, outpatient follow- up recommended. I spent a total of 20 minutes on the date of service in preparation, delivery, and documentation of the care provided to this patient, excluding any time spent in the performance of separately billed services. Cyrus Alegria, DO Subjective Patient resting in bed. Feeling well this morning. Hard of hearing. Denies chest pain, SOB, palpitations, weakness. Slept well. Per nurse, patient's metoprolol was held since yesterday morning, meaning he missed yesterday afternoon, evening and this morning dose due to sinus bradycardia. Unfortunately at 8:28 AM, patient reverted back in to atrial fibrillation with mildly elevated rates. He is asymptomatic. Review of Systems Review of Systems: All systems reviewed & are unremarkable except as noted in HPI & below Physical Exam Constitutional: WD/WN, vitals as above well nourished; no acute distress Respiratory: no respiratory distress, no labored breathing, no retractions and no cough Auscultation: no crackles, no rales, no rhonchi and no wheezes Cardiovascular: RRR, no murmur, no edema Rate/Rhythm: + tachycardic and + irregularly irregular Heart Sounds: + murmur (3/6 systolic ejection) V essels: no JVD Extremities: + edema (trace ankle and pretibial edema) Gastrointestinal (Abdomen): normal bowel sounds, soft, nontender, no hepatosplenomegaly Inspection/Auscultation: abdomen not distended Percussion/Palpation: abdomen nontender, no guarding and abdomen not rigid Skin: no rashes, warm and dry Neurologic: CN's II-XI intact bilaterally and moves all extremities Motor/Sensory: no tremor Psychiatric: Orientation: alert, oriented to person and oriented to place Results & Data Vital Signs (Past 12 Hours) Vital Signs Temp Pulse Pulse Resp BP BP Pulse Ox 05/04/23 11:29 37.6 C H 92 H 18 146/67 H 94 05/04/23 07:35 36.5 C 84 18 144/69 H 94 05/04/23 06:00 57 L 05/04/23 07:14 05/04/23 04:06 36.7 C 59 L 18 126/72 96 O2 Del Method 05/04/23 11:29 Room Air 05/04/23 07:35 Room Air 05/04/23 06:00 05/04/23 07:14 Room Air 05/04/23 04:06 Room Air Laboratory Results Comprehensive Metabolic Panel 05/04/23 Range/Units 06:16 Sodium 134 L (136-145) mmol/L Potassium 4.1 (3.5-5.1) mmol/L Chloride 99 (98-107) mmol/L Carbon Dioxide 30 (21-32) mmol/L BUN 22 (6-23) mg/dl Creatinine 0.93 (0.6-1.4) mg/dl Glucose 73 (70-99(Fasting)) mg/dl Calcium 8.3 L (8.6-10.3) mg/dl Intake and Output 05/03/23 05/04/23 05/04/23 22:59 06:59 14:59 Intake Total 720 / 1180 350 / 1180 110 / 110 Output Total 1550 / 2450 900 / 2450 850 / 850 Balance -830 / -1270 -550 / -1270 -740 / -740 Intake: IV 110 / 220 110 / 110 Doxycycline Hyclate 100 mg In 110 / 220 110 / 110 Dextrose 5% 100 ml @ 50 mls/hr IV Q12H [facility] Rx#:[id number] Oral 720 / 960 240 / 960 Output: Urine Amount (Catheter) 1550 / 2450 900 / 2450 850 / 850 Hanna/Indwelling 1550 / 2450 900 / 2450 850 / 850 Other: Weight 87 kg 87 kg Weight Measurement Method [facility] Built in [facility] Patient Weight 05/05/23 06:59 Weight 87 kg Diagnostic Findings Telemetry reviewed: NSR overnight. This morning at 8:28, patient reverted back to atrial fibrillation with HR's 90-110 bmp. EKG this morning: Atrial fibrillation with RVR RBBB, LAFB QT/QTc 418/570 ms EKG this morning around 7:00 AM Sinus bradycardia with Premature atrial complexes Right bundle branch block Left anterior fascicular block Bifascicular block Moderate voltage criteria for LVH, may be normal variant QT/QTc 478/473 ms Medications Administered Current Inpatient Medications Acetaminophen (Acetaminophen 325 Mg Tab) 650 mg PO Q4H PRN PRN Reason: Pain or Fever Stop: 05/29/23 22:26 Last Admin: 05/03/23 21:37 Dose: 650 mg Apixaban (Apixaban 5 Mg Tablet) 5 mg PO BID [facility] Stop: 05/29/23 22:26 Last Admin: 05/04/23 08:54 Dose: 5 mg Atorvastatin Calcium (Atorvastatin 40 Mg Tab) 40 mg PO QAM [facility] Stop: 05/30/23 08:59 Last Admin: 05/04/23 08:54 Dose: 40 mg Dextrose (Dextrose 50% 50 Ml Syringe) 25 - 50 ml IV UD PRN; Protocol PRN Reason: Hypoglycemia Protocol Stop: 05/29/23 22:26 Glucagon (Glucagon For Inj 1 Mg Vial) 1 mg SQ UD PRN; Protocol PRN Reason: Hypoglycemia Protocol Stop: 05/29/23 22:26 Glucose (Glucose 40% Gel 15 Gm Tube) 15 - 30 gm PO UD PRN; Protocol PRN Reason: Hypoglycemia Protocol Stop: 05/29/23 22:26 Glucose (Glucose 10 Tab/Tube) 4 - 8 tab PO UD PRN; Protocol PRN Reason: Hypoglycemia Treatment Stop: 05/29/23 22:26 Promethazine HCl 6.25 mg/ (Sodium Chloride) 50.25 mls @ 201 mls/hr IV Q6H PRN PRN Reason: Nausea And Vomiting Stop: 05/29/23 22:26 Doxycycline Hyclate 100 mg/ (Dextrose) 110 mls @ 50 mls/hr IV Q12H [facility] Stop: 05/15/23 09:29 Last Infusion: 05/04/23 11:23 Dose: Infused Insulin Aspart (Insulin Aspart Per Unit Charge) 0 units SC ACHS [facility] Stop: 05/29/23 22:26 Last Admin: 05/04/23 08:53 Dose: 3 units Insulin Glargine (Lantus Per Unit Charge) 40 units SQ HS [facility] Stop: 05/31/23 21:29 Last Admin: 05/03/23 20:54 Dose: 40 units Metoprolol Tartrate (Metoprolol Tartrate 25 Mg Tab) 25 mg PO Q8 [facility] Stop: 06/02/23 13:59 Last Admin: 05/04/23 06:06 Dose: Not Given Miscellaneous (Carbohydrates For Hypoglycemia ) 15 - 30 gm PO UD PRN PRN Reason: Hypoglycemia Protocol Stop: 05/29/23 22:26 Potassium Chloride (Potassium Chloride Crtab 20 Meq Tabcr) 40 meq PO DAILY DARIN Stop: 05/31/23 08:59 Last Admin: 05/04/23 08:54 Dose: 40 meq Tamsulosin HCl (Tamsulosin Hcl 0.4 Mg Cap) 0.4 mg PO QAM [facility] Stop: 05/30/23 08:59 Last Admin: 05/04/23 08:54 Dose: 0.4 mg
--- NOTE | 2023-05-04 13:48 | Hospitalist Progress Note ---
Date of Service May 04, 2023 Assessment & Plan (1) Anaplasmosis: (2) Paroxysmal atrial fibrillation with RVR: (3) Hypokalemia: (4) Urinary retention: (5) Diabetes mellitus, type II: (6) Hyponatremia: Plan 77-year-old male with multiple medical problems including chronic diastolic CHF, paroxysmal A-fib on Eliquis, presented to ED not feeling well for past week. Not taking insulin because of poor appetite and blood sugar 400s in the ED, also found to have urinary retention and Hanna was placed. Per , patient has been living in his car on a family property with limited access to electricity and running water for the last few months CT A/P- Chronic bladder outlet obstruction is seen with resulting left greater than right hydronephrosis. No acute abnormality. Xray rt calcaneus- No radiographic evidence of osteomyelitis. 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 Lyme negative. Urine retention-status post Hanna. Urology following. Continue Flomax. Hyponatremia-mild, improved, recheck in am Hypokalemia- resolved with oral supplementation Paroxysmal A-fib with RVR- Tele reviewed. Initially lopressor uptitrated but was still having Afib with RVR, hence amio was started by cardio on 05/01 but had prolonged QTc >500, hence amio discontinued. However he had sinus bradycardia and his beta-arnel was held-converted to A-fib this vnuganw-jheg-wnyxkei was resumed and now back to sinus rhythm. Continue lopressor, eliquis and tele. Prolonged QTc- QTc still >500. Amio discontinued per cardio. Avoid further QT prolonging meds. Valvular heart disease-echo shows moderately severe valve aortic stenosis, mild MR, trace TR, EF 50 to 55%. Repeat echo as outpatient per cardiology Right heel ulcer- does not look infected. Xray does not show OM. Follows with wound care and already improving per . continue wound care. Diabetes mellitus type 2- continue lantus, SSI. adjust as indicated Hearing loss- recommend hearing aids Seen by psych- recommended OP dementia/memory workup with brain MRI if concerns for behavioral changes persist. Strongly recommend hearing aids/corrective device; he may be isolating due to frustration of not being able to communicate when around others. MRI brain with no acute findings. DVT ppx- Eliquis Dispo- PT OT Eval for discharge planning Admission and Anticipated Discharge Date Admission Date: April 29, 2023 Subjective Patient was seen and examined at bedside. Feels good. Denies any new issues. No fever, chills, chest pain or shortness of breath nausea or vomiting. He states his tiredness is improving. Appetite is normal. Having regular bowel movements daily Review of Systems Review of Systems: All systems reviewed & are unremarkable except as noted in Subjective Physical Exam Physical Exam: General: Sitting in bed not in acute distress, on room air HEENT: ARNOLDO, MMM Chest: Fair breath sounds bilaterally, no wheezes or crackles CVS: Regular, normal heart sounds, no murmur Abdomen: Soft, non tender, not distended, normal bowel sounds Neuro: Awake, alert, very hard of hearing, answering questions appropriately Extremities: No cyanosis, clubbing or edema Skin: Left heel wound noted- doesn't look deep or infected- follows with wound care 3x/wk and improving Results & Data Results & Data Vital Signs (Past 12 Hours) Vital Signs Temp Pulse Pulse Resp BP BP Pulse Ox 05/04/23 11:29 37.6 C H 92 H 18 146/67 H 94 05/04/23 07:35 36.5 C 84 18 144/69 H 94 05/04/23 06:00 57 L 05/04/23 07:14 05/04/23 04:06 36.7 C 59 L 18 126/72 96 O2 Del Method 05/04/23 11:29 Room Air 05/04/23 07:35 Room Air 05/04/23 06:00 05/04/23 07:14 Room Air 05/04/23 04:06 Room Air Laboratory Results BMP 05/04/23 06:16 Sodium 134 L Potassium 4.1 Chloride 99 Carbon Dioxide 30 BUN 22 Creatinine 0.93 Glucose 73 Calcium 8.3 L Medications Administered Current Inpatient Medications Acetaminophen (Acetaminophen 325 Mg Tab) 650 mg PO Q4H PRN PRN Reason: Pain or Fever Stop: 05/29/23 22:26 Last Admin: 05/03/23 21:37 Dose: 650 mg Apixaban (Apixaban 5 Mg Tablet) 5 mg PO BID [facility] Stop: 05/29/23 22:26 Last Admin: 05/04/23 08:54 Dose: 5 mg Atorvastatin Calcium (Atorvastatin 40 Mg Tab) 40 mg PO QAM [facility] Stop: 05/30/23 08:59 Last Admin: 05/04/23 08:54 Dose: 40 mg Dextrose (Dextrose 50% 50 Ml Syringe) 25 - 50 ml IV UD PRN; Protocol PRN Reason: Hypoglycemia Protocol Stop: 05/29/23 22:26 Glucagon (Glucagon For Inj 1 Mg Vial) 1 mg SQ UD PRN; Protocol PRN Reason: Hypoglycemia Protocol Stop: 05/29/23 22:26 Glucose (Glucose 40% Gel 15 Gm Tube) 15 - 30 gm PO UD PRN; Protocol PRN Reason: Hypoglycemia Protocol Stop: 05/29/23 22:26 Glucose (Glucose 10 Tab/Tube) 4 - 8 tab PO UD PRN; Protocol PRN Reason: Hypoglycemia Treatment Stop: 05/29/23 22:26 Promethazine HCl 6.25 mg/ (Sodium Chloride) 50.25 mls @ 201 mls/hr IV Q6H PRN PRN Reason: Nausea And Vomiting Stop: 05/29/23 22:26 Doxycycline Hyclate 100 mg/ (Dextrose) 110 mls @ 50 mls/hr IV Q12H [facility] Stop: 05/15/23 09:29 Last Infusion: 05/04/23 11:23 Dose: Infused Insulin Aspart (Insulin Aspart Per Unit Charge) 0 units SC ACHS [facility] Stop: 05/29/23 22:26 Last Admin: 05/04/23 12:26 Dose: 8 units Insulin Glargine (Lantus Per Unit Charge) 40 units SQ HS [facility] Stop: 05/31/23 21:29 Last Admin: 05/03/23 20:54 Dose: 40 units Metoprolol Tartrate (Metoprolol Tartrate 25 Mg Tab) 25 mg PO Q8 [facility] Stop: 06/02/23 13:59 Last Admin: 05/04/23 06:06 Dose: Not Given Miscellaneous (Carbohydrates For Hypoglycemia ) 15 - 30 gm PO UD PRN PRN Reason: Hypoglycemia Protocol Stop: 05/29/23 22:26 Potassium Chloride (Potassium Chloride Crtab 20 Meq Tabcr) 40 meq PO DAILY [facility] Stop: 05/31/23 08:59 Last Admin: 05/04/23 08:54 Dose: 40 meq Tamsulosin HCl (Tamsulosin Hcl 0.4 Mg Cap) 0.4 mg PO QAM [facility] Stop: 05/30/23 08:59 Last Admin: 05/04/23 08:54 Dose: 0.4 mg
[2023-05-04] MEDS: LANTUS PER UNIT CHARGE SQ SCH (21:08)
[2023-05-05] MEDS: METOPROLOL TARTRATE 25 MG TAB PO SCH (06:10)
[2023-05-05 06:39] LABS: Hematocrit (blood only) 33.7 % (42.0-52.0); Hemoglobin 11.3 g/dl (14.0-18.0); Mean Corpuscular Hemoglobin 29.4 pg (25.0-34.0); Mean Corpuscular Hgb Conc 33.5 g/dL (32.0-36.0); Mean Corpuscular Volume 87.5 fL (80.0-100.0); Mean Platelet Volume 11.3 fL (9.4-12.4); Platelet Count 244 K/uL (130-400); RDW Standard Deviation 41.2 fL (36.4-46.3); Red Blood Count 3.85 M/uL (4.70-6.10); White Blood Count 13.02 K/ul (4.8-10.8)
[2023-05-05 06:51] LABS: BUN Creatinine Ratio 27.2 (10-20); Calcium 8.2 mg/dl (8.6-10.3); Creatinine Clr Calc Pharmacy 72.1 ml/min; Est GFR (African American) 92.7 ml/min; Est GFR (Non-African American) 79.9 ml/min; Magnesium 1.9 mg/dl (1.7-2.4); Potassium 4.4 mmol/L (3.5-5.1)
[2023-05-05] MEDS: POTASSIUM CHLORIDE CRTAB 20 MEQ TABCR PO SCH (08:18)
[2023-05-05] MEDS: TAMSULOSIN HCL 0.4 MG CAP PO SCH (08:19)
[2023-05-05] MEDS: APIXABAN 5 MG TABLET PO SCH (08:19)
[2023-05-05] MEDS: ATORVASTATIN 40 MG TAB PO SCH (08:19)
[2023-05-05] MEDS: INSULIN ASPART PER UNIT CHARGE SC SCH ×2 (08:23→12:26)
[2023-05-05] MEDS: DOXYCYCLINE HYCLATE 100 MG in DEXTROSE 5% 100 ML IV SCH (09:45)
--- NOTE | 2023-05-05 14:00 | Discharge Summary ---
Date of Service May 05, 2023 Admission HPI Per Admitting Provider History obtained from patient, family, and records. History from patient secondary to severe hearing impairment. Medical history significant for chronic diastolic heart failure (EF 60%, TTE 2022), A-fib on Eliquis, moderate , hypertension, hyperlipidemia, BPH, chronic anemia (baseline hemoglobin of 11), severe hearing loss, history chronic LE venous ulcers, hoarding behavior as per records/hx of obsessional thoughts/acts as per records, past tobacco abuse Last confinement May 2022 for right foot cellulitis. Patient seen at [facility] in [facility] last month for malaise and fatigue. Patient returning to [facility] from [employer] at that time. Patient noted to be hyperglycemic, BSG 300s. Patient has been living in his car on a family property with limited access to electricity and running water as per the last few months. Patient concerned about patient's irrational behavior. Patient contemplating on asking patient's family doctor to have a psychiatrist evaluate patient. Patient not feeling well since last week. Tired no appetite, with emesis. Not taking insulin because of poor appetite. Patient denies headache, chest pain, SOB, abdominal pain. 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 Patient directed to ER for evaluation. BSG 400s upon arrival at the ER. Yee catheter placed for urinary retention. IV ceftriaxone administered at the ER for UTI. 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 Admission Exam Per Admitting Provider GENERAL: Slightly uncomfortable, hard of hearing, no respiratory distress SKIN: Normal color, warm HEENT: Bespectacled, pink palpebral conjunctivae, no ptosis, dry buccal mucosa NECK : Supple, no tenderness CHEST : CTA, no tenderness HEART : RRR, systolic murmur ABDOMEN: Some distention, nontender EXTREMITIES : Dressings over both lower extremities,, no LE tenderness, no other conspicuous deformities noted NEUROLOGIC : Coherent, no facial asymmetry, marked hearing impairment, gait and stance not assessed Principal Diagnosis Anaplasmosis, paroxysmal atrial fibrillation with RVR Discharge Exam General: Sitting in bed not in acute distress, on room air HEENT: ARNOLDO, MMM Chest: Fair breath sounds bilaterally, no wheezes or crackles CVS: Regular, normal heart sounds, no murmur Abdomen: Soft, non tender, not distended, normal bowel sounds Neuro: Awake, alert, very hard of hearing, answering questions appropriately Extremities: No cyanosis, clubbing or edema Skin: Left heel wound noted- doesn't look deep or infected- follows with wound care 3x/wk and improving Discharge Data Allergies Allergy/AdvReac Type Severity Reaction Status Date / Time lisinopril Allergy Severe Swelling Verified 04/29/23 14:12 of Face/Lips/Tongue Consultations 04/29/23 19:35 ED Decision to Admit Stat 04/29/23 20:17 Consult Psychiatry Routine 04/29/23 22:27 Consult Urology Routine 04/30/23 08:43 Consult Cardiology Routine Ordered Studies 04/29/23 16:34 CT Abd and Pelvis [CT abd pelvis IV con only] Stat 05/01/23 08:08 MRI Brain [MR brain wo/w con] Routine Laboratory Results WBC 13.02 K/ul (4.8-10.8) H 05/05/23 05:49 RBC 3.85 M/uL (4.70-6.10) L 05/05/23 05:49 Hgb 11.3 g/dl (14.0-18.0) L 05/05/23 05:49 Hct 33.7 % (42.0-52.0) L 05/05/23 05:49 MCV 87.5 fL (80.0-100.0) 05/05/23 05:49 MCH 29.4 pg (25.0-34.0) 05/05/23 05:49 MCHC 33.5 g/dL (32.0-36.0) 05/05/23 05:49 RDW Std Deviation 41.2 fL (36.4-46.3) 05/05/23 05:49 RDW Coeff of Scott 13.0 % (11.5-14.5) 05/05/23 05:49 Plt Count 244 K/uL (130-400) 05/05/23 05:49 MPV 11.3 fL (9.4-12.4) 05/05/23 05:49 Immature Gran % (Auto) 0.3 % 04/30/23 06:44 Neut % (Auto) 83.1 % 04/30/23 06:44 Lymph % (Auto) 10.4 % 04/30/23 06:44 [place] % (Auto) 5.5 % 04/30/23 06:44 Eos % (Auto) 0.0 % 04/30/23 06:44 Baso % (Auto) 0.7 % 04/30/23 06:44 Neut # (Auto) 4.94 K/uL (1.40-6.50) 04/30/23 06:44 Lymph # (Auto) 0.62 K/uL (1.2-3.4) L 04/30/23 06:44 [place] # (Auto) 0.33 K/uL (0.11-0.59) 04/30/23 06:44 Eos # (Auto) 0.00 K/uL (0-0.50) 04/30/23 06:44 Baso # (Auto) 0.04 K/uL (0-0.2) 04/30/23 06:44 Immature Gran # (Auto) 0.02 K/uL (0.01-0.20) 04/30/23 06:44 Peripher Smr Path Cons 05/01/23 06:52 PT 12.9 Seconds (9.0-12.0) H 04/29/23 15:43 INR 1.2 (0.9-1.1) H 04/29/23 15:43 APTT 30.8 Seconds (21.0-31.0) 04/29/23 15:43 PTT Ratio 1.1 04/29/23 15:43 Sodium 133 mmol/L (136-145) L 05/05/23 05:49 Potassium 4.4 mmol/L (3.5-5.1) 05/05/23 05:49 Chloride 99 mmol/L (98-107) 05/05/23 05:49 Carbon Dioxide 29 mmol/L (21-32) 05/05/23 05:49 Anion Gap 5 (3-11) 05/05/23 05:49 BUN 25 mg/dl (6-23) H 05/05/23 05:49 Creatinine 0.92 mg/dl (0.6-1.4) 05/05/23 05:49 Est Cr Clr Drug Dosing 72.1 ml/min 05/05/23 05:49 Est GFR ( Amer) 92.7 ml/min 05/05/23 05:49 Est GFR (Non-Af Amer) 79.9 ml/min 05/05/23 05:49 BUN/Creatinine Ratio 27.2 (10-20) H 05/05/23 05:49 Glucose 94 mg/dl (70-99(Fasting)) 05/05/23 05:49 POC Glucose 208 mg/dl (70-99) H 05/05/23 11:15 Estimat Average Glucose 260 mg/dl 04/29/23 15:43 Hemoglobin A1c 10.7 % (4.5-5.6) H 04/29/23 15:43 Calcium 8.2 mg/dl (8.6-10.3) L 05/05/23 05:49 Phosphorus 2.6 mg/dl (2.5-4.9) 05/02/23 08:25 Magnesium 1.9 mg/dl (1.7-2.4) 05/05/23 05:49 Total Bilirubin 0.9 mg/dl (0.2-1.0) 05/01/23 06:52 AST 32 U/L (13-39) 05/01/23 06:52 ALT 18 U/L (7-52) 05/01/23 06:52 Alkaline Phosphatase 58 U/L (34-104) 05/01/23 06:52 Total Protein 6.7 gm/dl (6.0-8.3) 05/01/23 06:52 Albumin 3.1 gm/dl (3.4-5.0) L 05/01/23 06:52 Globulin 3.6 gm/dl (2.5-4.0) 05/01/23 06:52 Albumin/Globulin Ratio 0.9 (0.9-2) 05/01/23 06:52 TSH 1.379 uIu/ml (0.300-4.500) 04/29/23 15:43 Urine Color Yellow 04/29/23 15:43 Urine Appearance Cloudy (Clear) A 04/29/23 15:43 Urine pH 5.5 (4.5-7.5) 04/29/23 15:43 Ur Specific [place] 1.024 (1.000-1.030) 04/29/23 15:43 Urine Protein 1+ (Negative) H 04/29/23 15:43 Urine Glucose (UA) 3+ (Negative) H 04/29/23 15:43 Urine Ketones Negative (Negative) 04/29/23 15:43 Urine Blood 2+ (Negative) H 04/29/23 15:43 Urine Nitrite Negative (Negative) 04/29/23 15:43 Urine Bilirubin Negative (Negative) 04/29/23 15:43 Urine Urobilinogen Negative (Negative) 04/29/23 15:43 Ur Leukocyte Esterase 2+ (Negative) H 04/29/23 15:43 Urine WBC (Auto) >30 /hpf (0-5) H 04/29/23 15:43 Urine RBC (Auto) 0-4 /hpf (0-4) 04/29/23 15:43 U Hyaline Cast (Auto) 1-5 /lpf (0-5) 04/29/23 15:43 U Epithel Cells (Auto) 10-20 /lpf (0-5) H 04/29/23 15:43 Urine Bacteria (Auto) Negative (Negative) 04/29/23 15:43 Urine Yeast Not Reportable 04/29/23 15:43 Anaplasma Smear See Comment A 05/01/23 06:52 Anaplasma Comment Pos for Anaplasma 05/01/23 06:52 SARS-CoV-2 (PCR) NEGATIVE (Negative) 04/29/23 15:33 Influenza Type A (PCR) Negative (Neg) 04/29/23 15:33 Influenza Type B (PCR) Negative (Neg) 04/29/23 15:33 RSV (RT-PCR) Negative (Neg) 04/29/23 15:33 Impressions Chest X-Ray 04/29/23 15:04 XR chest 1V not portable CLINICAL HISTORY: lethargy TECHNIQUE: Single frontal radiograph of the chest was obtained. Comparison: Comparison is made to chest radiograph 11/30/2021 FINDINGS: No lines and tubes are seen. Cardiomegaly is noted. The lungs are clear. No evidence of pleural effusion or pneumothorax. IMPRESSION: No acute chest disease. ACT 112: Negative or not required by law. Electronically signed by: Anderson Serra M.D. 04/29/2023 5:20 PM Abdomen/Pelvis CT 04/29/23 16:34 CT abd pelvis IV con only CLINICAL HISTORY: abd pain vomiting TECHNIQUE: Helical axial images of the abdomen and pelvis were obtained and displayed. Automated dose lowering techniques and/or adjustment according to patient size were utilized for this exam. This exam was performed with intravenous contrast. CT DOSE: 1549.33 mGy.cm COMPARISON: None available at the time of this dictation. FINDINGS: Lower chest: Bibasilar atelectasis versus scarring is seen. Liver: Unremarkable. No focal lesions are seen. Gallbladder and biliary tree: No calcified gallstones. Normal caliber wall. No intra- or extrahepatic biliary ductal dilation. Pancreas: Unremarkable, no focal lesions. Spleen: Unremarkable. Adrenals: Unremarkable. Kidneys and ureters: Left or the right hydronephrosis and hydroureter are seen. Bladder: Diffuse homogeneous wall thickening is seen. Reproductive organs: Unremarkable. Bowel: The appendix is normal. There is a small hiatal hernia. Lymph nodes Retroperitoneal: Unremarkable. Pelvic: Unremarkable. Mesenteric: Unremarkable. Peritoneum: Normal. Vessels: Atherosclerotic calcifications are seen. Abdominal wall: Right fat-containing inguinal hernia. Bones: Degenerative changes in the visualized spine. Benign-appearing chondroid lesion is seen in the left intertrochanteric femur. 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 No acute abnormality. ACT 112: Negative or not required by law. Electronically signed by: Anderson Serra M.D. 04/29/2023 6:33 PM Calcaneus X-Ray 04/29/23 16:34 XR calcaneus RT min 2V CLINICAL HISTORY: r heel wound TECHNIQUE: 2 views of the right calcaneus were obtained. Comparison: None available at the time of this dictation. FINDINGS: No evidence of bony erosion is seen. The alignment is anatomic. The joint spaces are well preserved. Soft tissue swelling is seen. IMPRESSION: No radiographic evidence of osteomyelitis. If clinical concern remains, MRI is a more sensitive modality. ACT 112: Negative or not required by law. Electronically signed by: Anderson Serra M.D. 04/29/2023 5:18 PM Brain MRI 05/01/23 08:08 MR brain wo/w con CLINICAL HISTORY: AMS, behavioral issues TECHNIQUE: Multiplanar and multisequence MR images of the brain were obtained prior to and following administration of gadolinium contrast. Comparison: None available at the time of this dictation. FINDINGS: No abnormal restricted diffusion is identified. Foci of T2 and FLAIR hyperintensity are noted in the paraventricular areas consistent with chronic small vessel ischemic disease. Ex vacuo ventriculomegaly and sulcal enlargement is noted compatible with diffuse volume loss. No mass or abnormal enhancement is seen. There is no mass effect or midline shift. There is no evidence of acute intraparenchymal hemorrhage. No extra axial fluid collections are seen. The corpus callosum, pituitary gland, and cerebellar tonsils appear grossly unremarkable. Flow voids of the major intracranial arterial vessels are identified. The imaged portions of the paranasal sinuses, mastoid air cells, and orbits are unremarkable. IMPRESSION: No acute abnormalities. ACT 112: Negative or not required by law. Electronically signed by: Anderson Serra M.D. 05/01/2023 4:40 PM Diabetes Follow up Diabetes Follow-up Needed for HgbA1c >9% Hospital Course (1) Anaplasmosis: (2) Paroxysmal atrial fibrillation with RVR: (3) Hypokalemia: (4) Urinary retention: (5) Diabetes mellitus, type II: (6) Hyponatremia: Plan 77-year-old male with multiple medical problems including chronic diastolic CHF, paroxysmal A-fib on Eliquis, presented to ED not feeling well for past week. Not taking insulin because of poor appetite and blood sugar 400s in the ED, also found to have urinary retention and Yee was placed. Per , patient has been living in his car [place] a [place] with limited access to electricity and running water for the last few months. Patient was found to have chronic GORDON with hydronephrosis and underwent placement per urology. Also started on Flomax. Patient was started empirically on cefepime for suspected UTI but was discontinued as urine cultures were negative. He was however found to have anaplasmosis and was started on doxycycline with improvement in his mentation, alertness and energy. Hospital course was complicated by A-fib with RVR which did not resolve with uptitration of beta-arnel, hence Amio was added to his limited due to prolongation of QTc more than 500 and it was discontinued. He has converted back to normal sinus rhythm with only beta-blockers now. I spoke to cardiology prior to discharge who attributed his paroxysmal A-fib with RVR related to acute medical illness and hopefully should resolve once it is fully treated and recommended continuing his home dose of beta-blockers. He also has chronic heel wound which does not look infected and seems to be improving-it is being followed by wound care as outpatient. Patient was seen by therapy and recommended home with home therapy. Patient is comfortable and stable for discharge home on Yee with outpatient follow-up for voiding trial. Also discharging on Doxy to complete antibiotic course for anaplasmosis. Anaplasmosis- started on doxy D5, continue Doxy to complete antibiotic course. Lyme negative. Urine retention- CT A/P- Chronic bladder outlet obstruction is seen with resulting left greater than right hydronephrosis. No acute abnormality. - Seen by urology, status post Yee. Continue Flomax. - Follow-up with urology outpatient for voiding trial -Discussed with RN to teach Yee care to patient and family prior to discharge Hyponatremia-mild, improving, 133 at discharge Hypokalemia- resolved Paroxysmal A-fib with RVR- Tele reviewed. Initially lopressor uptitrated but was still having Afib with RVR, hence amio was started by cardio on 05/01 but had prolonged QTc >500, hence amio discontinued. However he had sinus bradycardia and his beta-arnel was held-converted to B-jwf-gztu-arnel was resumed and now back to sinus rhythm. Continue lopressor, eliquis. Asymptomatic with A-fib episodes. Prolonged QTc- QTc still >500. Amio discontinued per cardio. Avoid further QT prolonging meds. Valvular heart disease-echo shows moderately severe valve aortic stenosis, mild MR, trace TR, EF 50 to 55%. Repeat echo as outpatient per cardiology Right heel ulcer- does not look infected. Xray does not show OM. Follows with wound care and already improving per . continue wound care. Follow-up as outpatient Diabetes mellitus type 2- continue home meds Hearing loss- recommend hearing aids Seen by psych- recommended OP dementia/memory workup with brain MRI if concerns for behavioral changes persist. Strongly recommend hearing aids/corrective device; he may be isolating due to frustration of not being able to communicate when around others. MRI brain with no acute findings. Total Time Total Time Spent Total Time Spent (In Minutes): 40 Discharge Plan Discharge Items Patient Disposition: Home - Self-Care Reason For Visit: ENCEPHALOPATHY Discharge Diagnosis: Anaplasmosis, Paroxysmal A fib with RVR Activity: Resume your previous activity Non-emergency contact: Primary Care Provider, Breastfeeding Educator and Urologist Call non-emergency contact if: you have any medication questions, your symptoms worsen, your pain is concerning for you and you have a fever Follow-up/Referrals: Joni Leong DO [Physician] - (call to schedule appointment for voiding trial) James Maria DO [Primary Care Provider] - Diet: Carb Consistent or DM2 and Heart Healthy Addtl Attending Provider Instructions: Continue doxycycline 1 tab twice daily for for 1 more week Continue yee and yee care. Follow up with urology for voiding trial Continue local wound care If fever, chills, confusion etc, please come back to the emergency Precautions against further tick bites Addtl Cleaning Technician Provider Instructions: The urology office will contact you to arrange a follow-up visit. Please call our office at [phone] with any questions, concerns or need to reschedule appointments for any reason. We are happy to assist you. Yee Catheter care: Keep the catheter well secured with either a leg back or leg strap with large bag. Empty your bag when it's about half full. Use mild soap (such as Dove or Dial) and water to wash the catheter and the head of your penis daily, or more frequently if needed. You may shower as normal. Please avoid tub baths or soaking until catheter removed. Call [facility] at [phone] right away if you have any of the following: Heavy bleeding, clots, or bright red blood from the catheter Catheter that falls out or stops draining Foul-smelling discharge from your catheter Pending Studies at Discharge: No Stand-Alone Forms: [facility], Smoking Cessation Medications and DC Order Prescriptions: New doxycycline hyclate 100 mg tablet 100 mg PO BID Qty: 14 0RF Continued furosemide 40 mg tablet 0 mg PO QPM Rx Instructions: Patient only taking 40mg at night if needed for swelling metformin 500 mg tablet extended release 24 hr 1,000 mg PO QAM insulin aspart U-100 [Novolog FlexPen U-100 Insulin] 100 unit/mL (3 mL) Insulin Pen 5 unit SUBCUT TIDM metoprolol tartrate 25 mg tablet 25 mg PO BID insulin glargine [Lantus Solostar U-100 Insulin] 100 unit/mL (3 mL) insulin pen 20 unit SUBCUT HS Rx Instructions: PER GMG 15 UNITS AT HS. furosemide 40 mg tablet 0 mg PO QAM Rx Instructions: Pt only taking 80mg by mouth in the morning as needed for swelling atorvastatin 40 mg tablet 40 mg PO QAM tamsulosin 0.4 mg capsule 0.4 mg PO QAM Eliquis 5 mg tablet 5 mg PO BID Qty: 60 0RF Discharge Orders: Discharge Order (Routine); Ordered 05/05/23 Ordered By: Derek Wyatt Admission Data Admit Date/Time: 04/29/23 20:13 Attending Provider: Derek Wyatt Admit Provider: Gerald Hagan Primary Care Provider: James Maria Other Providers: Rubia Morrison ; Sona Colmenares ; Abdullahi Merritt ; Gerald Hagan ; Chema Hannah ; Del Ward ; Arron Tripathi ; Angela Douglas ; Joni Leong ; Georgie Nevarez ; Flavia Jin ; Naveen Krishnamurthy ; Arabella Hanson ; Danya Charles. ; Carlos Patrick ; Ceferino Honeycutt ; Cleve Mathis ; [facility] Other Interventions: Discharge Summary Assessment (RN) Last Done: 05/05/23 13:34
--- NOTE | 2023-05-05 14:20 | Communication Note ---
Date of Service: May 05, 2023 Patient resting comfortably. Telemetry reveals sinus rhythm in the 60s overnight last night and again today. Having had an episode of atrial fibrillation on 05/04/2023. Hanna catheter remains in place, with 3.8 L of urine output noted in the last 24 hours. Continue metoprolol tartrate 25 mg every 8 hours, Eliquis 5 mg twice daily. Continue doxycycline.
--- NOTE | 2023-05-05 22:28 | Electrocardiogram Report ---
Test Reason : Blood Pressure : / mmHG Vent. Rate : 067 BPM Atrial Rate : 067 BPM P-R Int : 156 ms QRS Dur : 120 ms QT Int : 496 ms P-R-T Axes : 033 -55 -44 degrees QTc Int : 524 ms Sinus rhythm with Premature atrial complexes Right bundle branch block Left anterior fascicular block Bifascicular block Voltage criteria for left ventricular hypertrophy T wave abnormality, consider inferolateral ischemia Abnormal ECG When compared with ECG of 02-MAY-2023 09:41, No significant change was found Confirmed by Ky Minaya ([id number]) on 05/05/2023 10:27:37 PM Referred By: REFERRED SELF Confirmed By:Ky Minaya
--- NOTE | 2023-05-06 22:56 | Electrocardiogram Report ---
Test Reason : Blood Pressure : / mmHG Vent. Rate : 059 BPM Atrial Rate : 059 BPM P-R Int : 150 ms QRS Dur : 118 ms QT Int : 478 ms P-R-T Axes : 074 -51 -37 degrees QTc Int : 473 ms Sinus bradycardia with Premature atrial complexes Right bundle branch block Left anterior fascicular block Bifascicular block Moderate voltage criteria for LVH, may be normal variant T wave abnormality, consider inferior ischemia Abnormal ECG When compared with ECG of 03-MAY-2023 09:30, T wave inversion no longer evident in Anterolateral leads Confirmed by Ky Minaya ([id number]) on 05/06/2023 10:56:26 PM Referred By: REFERRED SELF Confirmed By:Ky Minaya
--- NOTE | 2023-05-06 23:04 | Electrocardiogram Report ---
Test Reason : Blood Pressure : / mmHG Vent. Rate : 112 BPM Atrial Rate : 087 BPM P-R Int : 000 ms QRS Dur : 120 ms QT Int : 418 ms P-R-T Axes : 000 -61 065 degrees QTc Int : 570 ms Atrial fibrillation with rapid ventricular response Right bundle branch block Left anterior fascicular block Bifascicular block Voltage criteria for left ventricular hypertrophy Abnormal ECG When compared with ECG of 04-MAY-2023 06:01, Atrial fibrillation has replaced Sinus rhythm Vent. rate has increased BY 53 BPM Confirmed by Ky Minaya ([id number]) on 05/06/2023 11:04:12 PM Referred By: REFERRED SELF Confirmed By:Ky Minaya
--- NOTE | 2023-05-07 22:13 | Electrocardiogram Report ---
Test Reason : Blood Pressure : / mmHG Vent. Rate : 056 BPM Atrial Rate : 056 BPM P-R Int : 152 ms QRS Dur : 126 ms QT Int : 528 ms P-R-T Axes : 045 -55 -46 degrees QTc Int : 509 ms Poor data quality, interpretation may be adversely affected Sinus bradycardia Right bundle branch block Left anterior fascicular block Left ventricular hypertrophy with QRS widening Abnormal ECG When compared with ECG of 04-MAY-2023 09:23, Sinus rhythm has replaced Atrial fibrillation Vent. rate has decreased BY 56 BPM T wave inversion now evident in Inferior leads Confirmed by Ky Minaya ([id number]) on 05/07/2023 10:13:25 PM Referred By: REFERRED SELF Confirmed By:Ky Minaya
--- NOTE | 2023-05-07 22:15 | Electrocardiogram Report ---
Test Reason : Blood Pressure : / mmHG Vent. Rate : 056 BPM Atrial Rate : 056 BPM P-R Int : 152 ms QRS Dur : 118 ms QT Int : 482 ms P-R-T Axes : 052 -54 -45 degrees QTc Int : 465 ms Sinus bradycardia Right bundle branch block Left anterior fascicular block Bifascicular block Moderate voltage criteria for LVH, may be normal variant Abnormal ECG When compared with ECG of 05-May-2023 06:02, No significant change Confirmed by Ky Minaya ([id number]) on 05/07/2023 10:14:46 PM Referred By: REFERRED SELF Confirmed By:Ky Minaya
== END 2023-05-05 14:31 | disposition home health service (06) | DRG 699 ==
LOC: ED 14:54 → 2N 20:13

== ENCOUNTER 2023-07-24 12:49 | Inpatient (IN) ==
[2023-07-24] MEDS ORDERED: SODIUM CHLORIDE 0.9% 2,000 ML IV ONE (13:18)
[2023-07-24] MEDS ORDERED: METOPROLOL TARTRATE 1 MG/ML VIAL IV STA ×2 (13:20→13:50)
[2023-07-24 13:36] LABS: iSTAT Blood Urea Nitrogen > 140 mg/dl (7-18); iSTAT Carbon Dioxide 25 mmol/L (24-31); iSTAT Chloride 103 mmol/L (101-112); iSTAT Creatinine 3.2 mg/dl (0.6-1.3); iSTAT Glucose 700 mg/dl (70-99); iSTAT Hematocrit 46 % (42-52); iSTAT Hemoglobin 15.6 g/dl (14.0-18.0); iSTAT Ionized Calcium 1.06 mmol/l (1.12-1.32); iSTAT Potassium 3.9 mmol/L (3.3-5.0); iSTAT Sodium 143 mmol/L (135-144)
--- NOTE | 2023-07-24 13:45 | XRay Report ---
XR chest 1V portable HISTORY: Sepsis COMPARISON: Chest 04/29/2023. FINDINGS: No pneumothorax. No pleural effusions. The cardiac silhouette remains mildly enlarged. No e vidence for pulmonary edema. No new focal lung consolidations to suggest a pneumonia. No acute fractu res identified. IMPRESSION: No significant change compared to the prior study. No acute process. ACT 112: Negative or not required by law. Electronically signed by: Del Blackburn M.D. 07/24/2023 1:43 PM
--- NOTE | 2023-07-24 13:49 | Emergency Department Note ---
Impression & Plan Hyperosmolar hyperglycemic state (HHS), Homelessness, DKA (diabetic ketoacidosis), Elevated troponin, Sepsis, Acute renal failure, Indwelling Hanna catheter present, Atrial flutter with rapid ventricular response ED Provider Note NAME: KATHARINE VANN AGE: 77 SEX: M ARRIVES VIA: Ambulance INFORMANT: Patient ED PROVIDER(S): Mane Jolley MD CHIEF COMPLAINT: Weakness, tachycardia, hyperglycemia PLAN: Disposition: Admit MEDICAL DECISION MAKING: The patient is a 77-year-old gentleman with a past medical history of atrial fibrillation on Eliquis, history of diabetes, homelessness who presents to the emergency department via EMS for evaluation of confusion, generalized weakness. Per EMS the patient had not been seen for 4 days. The patient is homeless and lives on family property and lives in a tent. The patient's reports that he has been doing this for the past 2 months. This was also documented in a recent hospitalization to this facility in May. The patient apparently has been taking his medications per the . She reports she does store his insulin and refrigerator and gives it to him. She reports that the patient cannot live with her and their daughter according to the lease. He was briefly staying with his sister but she acknowledges that he is a "hoarder" and so cannot live with his sister anymore. The patient also has extremely poor hearing and cannot provide any history. Per EMS report/discussion on medical command they found the patient to have a BSG greater than 500 and was noted to have heart rate in the 180s with a narrow complex which did not respond to 6 mg followed by 12 mg of adenosine. Blood pressure was 140s/100s. The patient was awake and alert. They describe that the patient appears significantly dehydrated and so IV access was limited and so left tibial IO was placed. Per my instruction they administered IV fluid hydration with pressure bag and if trending improvement HR could defer treatment with rate controlling medications until arriving to the emergency department. Upon arriving to the emergency department the patient is ill-appearing, afebrile. Heart rate had trended from the 170s-180s to 160s-170s after 500 cc of normal saline, 150-160s after 1000cc NSS total. Blood pressure remained 100s. I-STAT performed demonstrates glucose of 700 with sodium of 143 and thus adjusted sodium is 155 representing approximate 4L free water deficit. Creatinine is 3.2 reflecting acute kidney injury/renal failure with BUN greater than 140. H/H 15.6/46 which is increased from values last month likely reflecting hemoconcentration in the setting of suspected HHS. EKG on arrival demonstrates suspected atrial flutter at 166, incomplete right bundle branch block, left anterior fascicular block, LVH. Marked ST abnormality is noted without overt ST elevation. QTc 501, QRS 114. Of note, the patient did spontaneously cardiovert to normal sinus rhythm following IV fluid hydration and Lopressor 5 mg x 1. WBC 16.6k with neutrophil predominance but no left shift, nonspecific. Mild lymphopenia is noted, also nonspecific. H/H 14.7/44.8 likely reflecting component of hemoconcentration. Platelets wnl. Initial VBG 7.29 after on the initial 500 cc of fluid. Subsequently serum chemistry demonstrates normal bicarbonate of 24 with anion gap of 17. Creatinine of 3.01 with BUN of 122 demonstrating improving trend from initial i- STAT. Sodium 142 with glucose of 760 and so similar adjusted sodium of ~155. LFTs without significant normality. Initial high-sensitivity troponin 110, nons pecific and in the setting of atrial flutter with RVR 180s of uncertain duration. Procalcitonin is elevated 1.6. UA is suspicious for infection with WBCs albeit with epithelial cells and no bacteria. Lyme screen was negative. CT of the head and CT of the abdomen pelvis were performed for further evaluation and are pending. Otherwise, patient's treatment included 30 cc/kg of IVF NSS per IBW with caution due to acute renal failure, empiric antibiotics with cefepime and vancomycin, insulin drip for HHS, and IV fluid maintenance at 250 cc/h with half-normal saline and 20 of KCl. Patient's at the bedside was updated repeatedly of the patient's critical condition. Case was discussed with Marga Le [facility] PAC with Dr. Castillo, [facility] hospitalist, who will evaluate the patient for admission. Further management per admitting team. Triage Nursing notes reviewed and agree them. Prior/outside medical records reviewed Vital Signs: reviewed Differential diagnosis: Infection, dehydration, metabolic abnormality, hypo/hyperglycemia, electrolyte disturbance, anemia, hypoxia, cardiac sources, intracerebral event, toxicologic, neurologic, as well as other pathologies. ER treatment provided: See below. Diagnostics interpreted by me: ECG 1255: Atrial flutter rvr, 166 bpm, incomplete right bundle branch block, left anterior fascicular block, LVH. Marked ST abnormality is noted without overt ST elevation. QTc 501, QRS 114 ECG 1459: Sinus rhythm with PACs, 73 bpm, left anterior fascicular block, LVH, T wave inversion in the anterior and lateral leads, no overt ST elevation. QTc 515, QRS 120 Cardiac Monitoring: An order for continuous cardiac monitoring was placed and demonstrated Atrial flutter rvr, 166 bpm. Laboratory studies: See below Imaging studies: See below Consultation(s): Case was discussed with [facility] PAC with Dr. Castillo, [facility] hospitalist, who will evaluate the patient for admission. HPI: The patient is a 77-year-old gentleman with a past medical history of atrial fibrillation on Eliquis, history of diabetes, homelessness who presents to the emergency department via EMS for evaluation of confusion, generalized weakness. Per EMS the patient had not been seen for 4 days. The patient is homeless and lives on family property and lives in a tent. The patient's reports that he has been doing this for the past 2 months. This was also documented in a recent hospitalization to this facility in May. The patient a pparently has been taking his medications per the . She reports she does store his insulin and refrigerator and gives it to him. She reports that the patient cannot live with her and their daughter according to the lease. He was briefly staying with his sister but she acknowledges that he is a "hoarder" and so cannot live with his sister anymore. The patient also has extremely poor hearing and cannot provide any history. Per EMS report/discussion on medical command they found the patient to have a BSG greater than 500 and was noted to have heart rate in the 180s with a narrow complex which did not respond to 6 mg followed by 12 mg of adenosine. Blood pressure was 140s/100s. The patient was awake and alert. They describe that the patient appears significantly dehydrated and so IV access was limited and so left tibial IO was placed. Per my instruction they administered IV fluid hydration with pressure bag and if trending improvement HR could defer treatment with rate controlling medications until arriving to the emergency department. ROS: See above HPI for pertinent positives & negatives. A total of 10 systems reviewed and were otherwise negative. VITALS:See Below PHYSICAL EXAMINATION: GENERAL: Awake, alert, ill-appearing, unkempt. HENT: Normocephalic, atraumatic. Oropharynx with dry cracked MM. EYES: Normal conjunctiva. Sclera non-icteric. EOMI. No nystamgus. PEARRL. NECK: Supple. No nuchal rigidity. FROM. No JVD. RESPIRATORY: Clear to auscultation. CARDIAC: Tachycardic rate, irregular rhythm. Extremities warm and well perfused. Pulses equal. ABDOMEN: Soft, non-distended. No tenderness to palpation. No rebound or guarding. No masses. RECTAL: Deferred. MUSCULOSKELETAL: Chest examination reveals no tenderness. The back is symmetrical on inspection without obvious abnormality. There is no CVA tenderness to palpation. No joint edema. LOWER EXTREMITIES: Calves are equal size bilaterally and non-tender. No edema. No discoloration. NEURO: Chronic severe hearing loss. Otherwise, no overt sensory or motor deficits noted. SKIN: Cool, mottled, with tenting. No jaundice noted. ED COURSE: Procedures: Peripheral IV placement under dynamic ultrasound guidance. Indication: IV access / sepsis. Catheter type: 20 gauge, 2-inch angiocath Location: Right upper arm Emergent consent implied. Skin was prepped in the standard fashion with chlorhexidine. Ultrasound used to identify target vessel in the right upper arm. Needle was inserted through the skin in the standard fashion and carefully advanced under dynamic ultrasound guidance into blood vessel lumen. Good blood return and flush. The patient tolerated the procedure well and there were no complications. Critical Care: I have personally spent greater than 125 minutes of critical care time in the direct management of this patient. This includes bedside care, interpretation of diagnostic studies, and testing, discussion with consultants, patient, and family members, and other required patient management activities. This 125 minutes is in excess of all separately billable procedures. Mane Jolley MD Past Med/Surg History Medical History Abnormal urinalysis Acute hyperglycemia Acute hypokalemia Atrial fibrillation with rapid ventricular response Bilateral edema of lower extremity BPH (benign prostatic hyperplasia) Cellulitis D-dimer, elevated Diabetes mellitus, type II DM type 2 (diabetes mellitus, type 2) DVT prophylaxis Dyslipidemia Dyspnea Edema of both legs Elevated brain natriuretic peptide (BNP) level Hearing loss Heart failure with preserved ejection fraction HTN (hypertension) Hypertension Hypokalemia Leukocytosis Moderate aortic stenosis Paroxysmal atrial fibrillation Paroxysmal atrial fibrillation Premature atrial complexes Puncture wound of foot, right Right foot infection Volume overload Surgical History H/O shoulder surgery History of ear surgery age 19, mastoid S/P foot surgery, left Family History Brother Diabetes Social History Smoking Status: Former smoker Tobacco Type: Cigarettes Second Hand Exposure: No; Do You Dip or Chew Tobacco: No; Hx Alcohol Use: No Hx Substance Use: No Preferred Language: Thai Communication Ability: Impaired Communication Ability Comment: pt very hard of hearing Flight Kitchen Manager Required: No Beliefs That Will Affect Care: None marital status: Current Living Situation: Alone Current Living Situation Comment: lives in a building that has no running water How many Children do You have: 3 Feels Safe at Home: Yes Assistive Devices: Cane Allergies Allergies Allergy/AdvReac Type Severity Reaction Status Date / Time lisinopril Allergy Severe Swelling Verified 05/26/23 14:21 of Face/Lips/Tongue Home Meds Home Medications Medication Instructions Recorded Confirmed atorvastatin 40 mg tablet 40 mg PO QAM 11/08/21 07/24/23 insulin aspart U-100 100 unit/mL 5 unit subcut TIDM 05/16/22 07/24/23 (3 mL) subcutaneous pen (Novolog FlexPen U-100 Insulin aspart) metformin 500 mg tablet,extended 1,000 mg PO QAM 05/16/22 07/24/23 release 24 hr metoprolol tartrate 25 mg tablet 25 mg PO BID 05/16/22 07/24/23 furosemide 40 mg tablet 40 mg PO QPM 11/20/22 07/24/23 furosemide 40 mg tablet 80 mg PO QAM 11/20/22 07/24/23 insulin degludec 100 20 unit subcut HS 06/17/23 07/24/23 unit-liraglutide 3.6 mg/mL(3 mL) subcutaneous pen (Xultophy 100/3.6) Previous Rx's Medication Instructions Recorded apixaban 5 mg tablet (Eliquis) 5 mg PO BID #60 tabs 11/11/21 finasteride 5 mg tablet 5 mg PO DAILY #30 tabs 05/20/23 tamsulosin 0.4 mg capsule 0.4 mg PO DAILY #30 caps 05/20/23 Results & Data (ED) Vital Signs Vital Signs - 24 hr 07/24/23 12:56 07/24/23 13:18 07/24/23 13:00 Temperature 36.7 C Temperature Source Axillary Pulse Rate 172 H 162 H 159 H Pulse Rate from SpO2 Sensor Pulse Rhythm Irregular Respiratory Rate 22 28 H Respiratory Effort / Characteristics Non-Labored Spontaneous Respiratory Depth Normal Respiratory Pattern Regular Blood Pressure 110/78 Blood Pressure Mean 88 Blood Pressure Position Lying Pulse Oximetry 87 L Oxygen Delivery Method Room Air Oxygen Flow Rate Sepsis Recent Fever Within 48 Hours No Sepsis New/Unexplained Change in Mental Status Yes Sepsis Action Taken by Nursing Physician Notified 07/24/23 13:05 07/24/23 13:10 07/24/23 13:15 Temperature Temperature Source Pulse Rate 171 H 169 H 159 H Pulse Rate from SpO2 Sensor Pulse Rhythm Respiratory Rate 23 Respiratory Effort / Characteristics Respiratory Depth Respiratory Pattern Blood Pressure 110/75 Blood Pressure Mean 86 Blood Pressure Position Pulse Oximetry Oxygen Delivery Method Oxygen Flow Rate Sepsis Recent Fever Within 48 Hours Sepsis New/Unexplained Change in Mental Status Sepsis Action Taken by Nursing 07/24/23 13:20 07/24/23 13:30 07/24/23 13:32 Temperature Temperature Source Pulse Rate 160 H 173 H 150 H Pulse Rate from SpO2 Sensor 99 H 101 H Pulse Rhythm Respiratory Rate 26 H 27 H 25 H Respiratory Effort / Characteristics Respiratory Depth Respiratory Pattern Blood Pressure 110/78 135/60 135/60 Blood Pressure Mean 88 85 85 Blood Pressure Position Pulse Oximetry 85 L 94 93 Oxygen Delivery Method Nasal Cannula Nasal Cannula Nasal Cannula Oxygen Flow Rate 2 2 2 Sepsis Recent Fever Within 48 Hours Sepsis New/Unexplained Change in Mental Status Sepsis Action Taken by Nursing 07/24/23 13:40 07/24/23 13:51 07/24/23 14:01 Temperature Temperature Source Pulse Rate 166 H 167 H 154 H Pulse Rate from SpO2 Sensor Pulse Rhythm Respiratory Rate 26 H 28 H 26 H Respiratory Effort / Characteristics Respiratory Depth Respiratory Pattern Blood Pressure 80/65 L Blood Pressure Mean 70 Blood Pressure Position Pulse Oximetry 90 93 Oxygen Delivery Method Nasal Cannula Nasal Cannula Oxygen Flow Rate 2 2 Sepsis Recent Fever Within 48 Hours Sepsis New/Unexplained Change in Mental Status Sepsis Action Taken by Nursing 07/24/23 14:05 07/24/23 14:06 07/24/23 14:06 Temperature Temperature Source Pulse Rate 162 H 154 H Pulse Rate from SpO2 Sensor 96 H 102 H Pulse Rhythm Respiratory Rate 26 H 28 H Respiratory Effort / Characteristics Respiratory Depth Respiratory Pattern Blood Pressure 94/65 L Blood Pressure Mean 87 Blood Pressure Position Pulse Oximetry 92 91 Oxygen Delivery Method Oxygen Flow Rate Sepsis Recent Fever Within 48 Hours Sepsis New/Unexplained Change in Mental Status Sepsis Action Taken by Nursing 07/24/23 14:10 07/24/23 14:10 07/24/23 14:15 Temperature Temperature Source Pulse Rate 154 H 153 H Pulse Rate from SpO2 Sensor 122 H 101 H Pulse Rhythm Respiratory Rate 27 H 27 H Respiratory Effort / Characteristics Respiratory Depth Respiratory Pattern Blood Pressure 109/74 Blood Pressure Mean 89 Blood Pressure Position Pulse Oximetry 90 89 L Oxygen Delivery Method Oxygen Flow Rate Sepsis Recent Fever Within 48 Hours Sepsis New/Unexplained Change in Mental Status Sepsis Action Taken by Nursing 07/24/23 14:20 07/24/23 14:25 07/24/23 14:30 Temperature Temperature Source Pulse Rate 157 H 140 H 130 H Pulse Rate from SpO2 Sensor 99 H 97 H 101 H Pulse Rhythm Respiratory Rate 19 25 H 24 Respiratory Effort / Characteristics Respiratory Depth Respiratory Pattern Blood Pressure Blood Pressure Mean Blood Pressure Position Pulse Oximetry 83 L 87 L 96 Oxygen Delivery Method Oxygen Flow Rate Sepsis Recent Fever Within 48 Hours Sepsis New/Unexplained Change in Mental Status Sepsis Action Taken by Nursing 07/24/23 14:35 07/24/23 14:40 07/24/23 14:43 Temperature Temperature Source Pulse Rate 134 H 145 H Pulse Rate from SpO2 Sensor 109 H 105 H Pulse Rhythm Respiratory Rate 25 H 25 H Respiratory Effort / Characteristics Respiratory Depth Respiratory Pattern Blood Pressure 97/70 L Blood Pressure Mean 74 Blood Pressure Position Pulse Oximetry 99 97 Oxygen Delivery Method Oxygen Flow Rate Sepsis Recent Fever Within 48 Hours Sepsis New/Unexplained Change in Mental Status Sepsis Action Taken by Nursing 07/24/23 14:43 07/24/23 14:45 07/24/23 14:51 Temperature Temperature Source Pulse Rate 130 H 138 H 161 H Pulse Rate from SpO2 Sensor 126 H 94 H Pulse Rhythm Respiratory Rate 24 22 20 Respiratory Effort / Characteristics Respiratory Depth Respiratory Pattern Blood Pressure 89/73 L Blood Pressure Mean 78 Blood Pressure Position Pulse Oximetry 96 97 97 Oxygen Delivery Method Nasal Cannula Oxygen Flow Rate 2 Sepsis Recent Fever Within 48 Hours Sepsis New/Unexplained Change in Mental Status Sepsis Action Taken by Nursing 07/24/23 15:00 07/24/23 15:10 07/24/23 15:20 Temperature Temperature Source Pulse Rate 72 81 76 Pulse Rate from SpO2 Sensor 72 Pulse Rhythm Respiratory Rate 25 H 22 21 Respiratory Effort / Characteristics Respiratory Depth Respiratory Pattern Blood Pressure 125/69 110/78 108/72 Blood Pressure Mean 87 88 84 Blood Pressure Position Pulse Oximetry 98 99 99 Oxygen Delivery Method Nasal Cannula Nasal Cannula Nasal Cannula Oxygen Flow Rate 2 2 2 Sepsis Recent Fever Within 48 Hours Sepsis New/Unexplained Change in Mental Status Sepsis Action Taken by Nursing 07/24/23 15:30 07/24/23 15:41 07/24/23 16:00 Temperature Temperature Source Pulse Rate 80 81 77 Pulse Rate from SpO2 Sensor Pulse Rhythm Respiratory Rate 22 22 26 H Respiratory Effort / Characteristics Respiratory Depth Respiratory Pattern Blood Pressure 112/76 111/62 131/73 Blood Pressure Mean 88 78 92 Blood Pressure Position Pulse Oximetry 100 100 99 Oxygen Delivery Method Nasal Cannula Nasal Cannula Nasal Cannula Oxygen Flow Rate 2 2 2 Sepsis Recent Fever Within 48 Hours Sepsis New/Unexplained Change in Mental Status Sepsis Action Taken by Nursing 07/24/23 17:05 07/24/23 17:22 07/24/23 18:10 Temperature Temperature Source Pulse Rate 94 H 89 Pulse Rate from SpO2 Sensor 72 Pulse Rhythm Respiratory Rate 25 H Respiratory Effort / Characteristics Respiratory Depth Respiratory Pattern Blood Pressure 112/79 Blood Pressure Mean 90 Blood Pressure Position Pulse Oximetry 95 Oxygen Delivery Method Nasal Cannula Nasal Cannula Oxygen Flow Rate 2 2 Sepsis Recent Fever Within 48 Hours Sepsis New/Unexplained Change in Mental Status Sepsis Action Taken by Nursing 07/24/23 18:20 07/24/23 18:30 07/24/23 18:44 Temperature Temperature Source Pulse Rate 86 86 Pulse Rate from SpO2 Sensor 82 78 Pulse Rhythm Respiratory Rate 25 H 23 Respiratory Effort / Characteristics Respiratory Depth Respiratory Pattern Blood Pressure 120/54 L 106/74 Blood Pressure Mean 76 84 Blood Pressure Position Pulse Oximetry 99 100 Oxygen Delivery Method Nasal Cannula Nasal Cannula Room Air Oxygen Flow Rate 2 2 Sepsis Recent Fever Within 48 Hours Sepsis New/Unexplained Change in Mental Status Sepsis Action Taken by Nursing Laboratory Data Attestation: I reviewed the patient's lab results. 07/24/23 13:10 07/24/23 13:10 Lab Results 09/22/23 09/22/23 09/22/23 Range/Units 13:10 13:10 13:10 WBC 16.65 H (4.8-10.8) K/ul RBC 5.12 (4.70-6.10) M/uL Hgb 14.7 (14.0-18.0) g/dl POC Hgb (14.0-18.0) g/dl Hct 44.8 (42.0-52.0) % POC Hct (42-52) % MCV 87.5 (80.0-100.0) fL MCH 28.7 (25.0-34.0) pg MCHC 32.8 (32.0-36.0) g/dL RDW Std Deviation 45.0 (36.4-46.3) fL RDW Coeff of Scott 13.9 (11.5-14.5) % Plt Count 218 (130-400) K/uL MPV 11.8 (9.4-12.4) fL Immature Gran % (Auto) 0.3 % Neut % (Auto) 87.3 % Lymph % (Auto) 5.3 % Maury % (Auto) 6.5 % Eos % (Auto) 0.4 % Baso % (Auto) 0.2 % Neut # (Auto) 14.52 H (1.40-6.50) K/uL Lymph # (Auto) 0.89 L (1.20-3.40) K/uL Maury # (Auto) 1.08 H (0.11-0.59) K/uL Eos # (Auto) 0.07 (0.00-0.50) K/uL Baso # (Auto) 0.04 (0.00-0.20) K/uL Immature Gran # (Auto) 0.05 (0.01-0.20) K/uL PT 13.0 H (9.0-12.0) Seconds INR 1.2 H (0.9-1.1) ABG pH (7.35-7.45) ABG pCO2 (35-46) mmHg ABG pO2 (80-95) mmHg ABG HCO3 (19-24) mmol/L ABG O2 Saturation (90-95) % ABG Base Excess (-9-1.8) mEq/L Domingo Test (Pos) VBG pH (7.36-7.41) VBG pCO2 (38-50) mmHg VBG pO2 mmHg VBG HCO3 mmol/L VBG O2 Saturation % VBG Base Excess mEq/L Oxygen Given POC Sodium (135-144) mmol/L Sodium 142 (136-145) mmol/L POC Potassium (3.3-5.0) mmol/L Potassium 3.9 (3.5-5.1) mmol/L POC Chloride (101-112) mmol/L Chloride 101 (98-107) mmol/L Carbon Dioxide 24 (21-32) mmol/L POC Total CO2 (24-31) mmol/L Anion Gap 17 H (3-11) POC Anion Gap (16-25) mmol/L POC BUN (7-18) mg/dl BUN 125 H (6-23) mg/dl Creatinine 3.28 H (0.6-1.4) mg/dl POC Creatinine (0.6-1.3) mg/dl Est Cr Clr Drug Dosing 17.0 ml/min Est GFR ( Amer) 19.9 ml/min Est GFR (Non-Af Amer) 17.2 ml/min BUN/Creatinine Ratio 38.1 H (10-20) Glucose 768 H* (70-99(Fasting)) mg/dl POC Glucose (70-99) mg/dl POC Glucose (other) (70-99) mg/dl Osmolality (280-300) mOsm/kg Lactate (0.4-2.0) mmol/L Calcium 8.7 (8.6-10.3) mg/dl POC Ioniz Calcium Tho (1.12-1.32) mmol/l Phosphorus 5.8 H (2.5-4.9) mg/dl Magnesium 2.9 H (1.7-2.4) mg/dl Total Bilirubin 0.5 (0.2-1.0) mg/dl Direct Bilirubin 0.1 (0-0.2) mg/dl AST 11 L (13-39) U/L ALT 10 (7-52) U/L Alkaline Phosphatase 78 (34-104) U/L Total Creatine Kinase 116 (30-223) U/L Troponin I High Sens 110.4 H* (0-20) pg/ml Total Protein 7.4 (6.0-8.3) gm/dl Albumin 3.1 L (3.4-5.0) gm/dl Lipase 6 L (11-82) U/L Procalcitonin (0-0.5) ng/ml TSH (0.300-4.500) uIu/ml Urine Color Urine Appearance (Clear) Urine pH (4.5-7.5) Ur Specific [place] (1.000-1.030) Urine Protein (Negative) Urine Glucose (UA) (Negative) Urine Ketones (Negative) Urine Blood (Negative) Urine Nitrite (Negative) Urine Bilirubin (Negative) Urine Urobilinogen (Negative) Ur Leukocyte Esterase (Negative) Urine WBC (Auto) (0-5) /hpf Urine RBC (Auto) (0-4) /hpf U Hyaline Cast (Auto) (0-5) /lpf U Epithel Cells (Auto) (0-5) /lpf Urine Bacteria (Auto) (Negative) WBC Casts (0) /lpf Urine Osmolality (500-800) mOsm/kg Ur Random Creatinine mg/dl Ur Random Sodium mmol/L Ur Random Potassium mmol/L Ur Random Chloride mmol/L Salicylates (3.0-30) mg/dl Acetaminophen (10-30) ug/ml Ethyl Alcohol mg/dL (<10.0) mg/dl Anaplasma Smear Babesia Smear Lyme Disease IgG Ab (Negative) Lyme Disease IgM Ab (Negative) SARS-CoV-2 (PCR) (Negative) Influenza Type A (PCR) (Neg) Influenza Type B (PCR) (Neg) RSV (RT-PCR) (Neg) 07/24/23 07/24/23 07/24/23 Range/Units 13:10 13:10 13:10 WBC (4.8-10.8) K/ul RBC (4.70-6.10) M/uL Hgb (14.0-18.0) g/dl POC Hgb (14.0-18.0) g/dl Hct (42.0-52.0) % POC Hct (42-52) % MCV (80.0-100.0) fL MCH (25.0-34.0) pg MCHC (32.0-36.0) g/dL RDW Std Deviation (36.4-46.3) fL RDW Coeff of Scott (11.5-14.5) % Plt Count (130-400) K/uL MPV (9.4-12.4) fL Immature Gran % (Auto) % Neut % (Auto) % Lymph % (Auto) % Maury % (Auto) % Eos % (Auto) % Baso % (Auto) % Neut # (Auto) (1.40-6.50) K/uL Lymph # (Auto) (1.20-3.40) K/uL Maury # (Auto) (0.11-0.59) K/uL Eos # (Auto) (0.00-0.50) K/uL Baso # (Auto) (0.00-0.20) K/uL Immature Gran # (Auto) (0.01-0.20) K/uL PT (9.0-12.0) Seconds INR (0.9-1.1) ABG pH (7.35-7.45) ABG pCO2 (35-46) mmHg ABG pO2 (80-95) mmHg ABG HCO3 (19-24) mmol/L ABG O2 Saturation (90-95) % ABG Base Excess (-9-1.8) mEq/L Domingo Test (Pos) VBG pH (7.36-7.41) VBG pCO2 (38-50) mmHg VBG pO2 mmHg VBG HCO3 mmol/L VBG O2 Saturation % VBG Base Excess mEq/L Oxygen Given POC Sodium (135-144) mmol/L Sodium (136-145) mmol/L POC Potassium (3.3-5.0) mmol/L Potassium (3.5-5.1) mmol/L POC Chloride (101-112) mmol/L Chloride (98-107) mmol/L Carbon Dioxide (21-32) mmol/L POC Total CO2 (24-31) mmol/L Anion Gap (3-11) POC Anion Gap (16-25) mmol/L POC BUN (7-18) mg/dl BUN (6-23) mg/dl Creatinine (0.6-1.4) mg/dl POC Creatinine (0.6-1.3) mg/dl Est Cr Clr Drug Dosing ml/min Est GFR ( Amer) ml/min Est GFR (Non-Af Amer) ml/min BUN/Creatinine Ratio (10-20) Glucose (70-99(Fasting)) mg/dl POC Glucose (70-99) mg/dl POC Glucose (other) (70-99) mg/dl Osmolality 385 H* (280-300) mOsm/kg Lactate (0.4-2.0) mmol/L Calcium (8.6-10.3) mg/dl POC Ioniz Calcium Tho (1.12-1.32) mmol/l Phosphorus (2.5-4.9) mg/dl Magnesium (1.7-2.4) mg/dl Total Bilirubin (0.2-1.0) mg/dl Direct Bilirubin (0-0.2) mg/dl AST (13-39) U/L ALT (7-52) U/L Alkaline Phosphatase (34-104) U/L Total Creatine Kinase (30-223) U/L Troponin I High Sens (0-20) pg/ml Total Protein (6.0-8.3) gm/dl Albumin (3.4-5.0) gm/dl Lipase (11-82) U/L Procalcitonin 1.65 H (0-0.5) ng/ml TSH (0.300-4.500) uIu/ml Urine Color Urine Appearance (Clear) Urine pH (4.5-7.5) Ur Specific [place] (1.000-1.030) Urine Protein (Negative) Urine Glucose (UA) (Negative) Urine Ketones (Negative) Urine Blood (Negative) Urine Nitrite (Negative) Urine Bilirubin (Negative) Urine Urobilinogen (Negative) Ur Leukocyte Esterase (Negative) Urine WBC (Auto) (0-5) /hpf Urine RBC (Auto) (0-4) /hpf U Hyaline Cast (Auto) (0-5) /lpf U Epithel Cells (Auto) (0-5) /lpf Urine Bacteria (Auto) (Negative) WBC Casts (0) /lpf Urine Osmolality (500-800) mOsm/kg Ur Random Creatinine mg/dl Ur Random Sodium mmol/L Ur Random Potassium mmol/L Ur Random Chloride mmol/L Salicylates (3.0-30) mg/dl Acetaminophen (10-30) ug/ml Ethyl Alcohol mg/dL (<10.0) mg/dl Anaplasma Smear Babesia Smear Lyme Disease IgG Ab Negative (Negative) Lyme Disease IgM Ab Negative (Negative) SARS-CoV-2 (PCR) (Negative) Influenza Type A (PCR) (Neg) Influenza Type B (PCR) (Neg) RSV (RT-PCR) (Neg) 07/24/23 07/24/23 07/24/23 Range/Units 13:16 13:23 14:35 WBC (4.8-10.8) K/ul RBC (4.70-6.10) M/uL Hgb (14.0-18.0) g/dl POC Hgb 15.6 (14.0-18.0) g/dl Hct (42.0-52.0) % POC Hct 46 (42-52) % MCV (80.0-100.0) fL MCH (25.0-34.0) pg MCHC (32.0-36.0) g/dL RDW Std Deviation (36.4-46.3) fL RDW Coeff of Scott (11.5-14.5) % Plt Count (130-400) K/uL MPV (9.4-12.4) fL Immature Gran % (Auto) % Neut % (Auto) % Lymph % (Auto) % Maury % (Auto) % Eos % (Auto) % Baso % (Auto) % Neut # (Auto) (1.40-6.50) K/uL Lymph # (Auto) (1.20-3.40) K/uL Maury # (Auto) (0.11-0.59) K/uL Eos # (Auto) (0.00-0.50) K/uL Baso # (Auto) (0.00-0.20) K/uL Immature Gran # (Auto) (0.01-0.20) K/uL PT (9.0-12.0) Seconds INR (0.9-1.1) ABG pH (7.35-7.45) ABG pCO2 (35-46) mmHg ABG pO2 (80-95) mmHg ABG HCO3 (19-24) mmol/L ABG O2 Saturation (90-95) % ABG Base Excess (-9-1.8) mEq/L Domingo Test (Pos) VBG pH (7.36-7.41) VBG pCO2 (38-50) mmHg VBG pO2 mmHg VBG HCO3 mmol/L VBG O2 Saturation % VBG Base Excess mEq/L Oxygen Given POC Sodium 143 (135-144) mmol/L Sodium (136-145) mmol/L POC Potassium 3.9 (3.3-5.0) mmol/L Potassium (3.5-5.1) mmol/L POC Chloride 103 (101-112) mmol/L Chloride (98-107) mmol/L Carbon Dioxide (21-32) mmol/L POC Total CO2 25 (24-31) mmol/L Anion Gap (3-11) POC Anion Gap 19.0 (16-25) mmol/L POC BUN > 140 H* (7-18) mg/dl BUN (6-23) mg/dl Creatinine (0.6-1.4) mg/dl POC Creatinine 3.2 H (0.6-1.3) mg/dl Est Cr Clr Drug Dosing ml/min Est GFR ( Amer) ml/min Est GFR (Non-Af Amer) ml/min BUN/Creatinine Ratio (10-20) Glucose (70-99(Fasting)) mg/dl POC Glucose > 600 H* (70-99) mg/dl POC Glucose (other) 700 H* (70-99) mg/dl Osmolality (280-300) mOsm/kg Lactate 4.7 H* (0.4-2.0) mmol/L Calcium (8.6-10.3) mg/dl POC Ioniz Calcium Tho 1.06 L (1.12-1.32) mmol/l Phosphorus (2.5-4.9) mg/dl Magnesium (1.7-2.4) mg/dl Total Bilirubin (0.2-1.0) mg/dl Direct Bilirubin (0-0.2) mg/dl AST (13-39) U/L ALT (7-52) U/L Alkaline Phosphatase (34-104) U/L Total Creatine Kinase (30-223) U/L Troponin I High Sens (0-20) pg/ml Total Protein (6.0-8.3) gm/dl Albumin (3.4-5.0) gm/dl Lipase (11-82) U/L Procalcitonin (0-0.5) ng/ml TSH (0.300-4.500) uIu/ml Urine Color Urine Appearance (Clear) Urine pH (4.5-7.5) Ur Specific [place] (1.000-1.030) Urine Protein (Negative) Urine Glucose (UA) (Negative) Urine Ketones (Negative) Urine Blood (Negative) Urine Nitrite (Negative) Urine Bilirubin (Negative) Urine Urobilinogen (Negative) Ur Leukocyte Esterase (Negative) Urine WBC (Auto) (0-5) /hpf Urine RBC (Auto) (0-4) /hpf U Hyaline Cast (Auto) (0-5) /lpf U Epithel Cells (Auto) (0-5) /lpf Urine Bacteria (Auto) (Negative) WBC Casts (0) /lpf Urine Osmolality (500-800) mOsm/kg Ur Random Creatinine mg/dl Ur Random Sodium mmol/L Ur Random Potassium mmol/L Ur Random Chloride mmol/L Salicylates (3.0-30) mg/dl Acetaminophen (10-30) ug/ml Ethyl Alcohol mg/dL (<10.0) mg/dl Anaplasma Smear Babesia Smear Lyme Disease IgG Ab (Negative) Lyme Disease IgM Ab (Negative) SARS-CoV-2 (PCR) (Negative) Influenza Type A (PCR) (Neg) Influenza Type B (PCR) (Neg) RSV (RT-PCR) (Neg) 07/24/23 07/24/23 07/24/23 Range/Units 14:35 15:00 15:00 WBC (4.8-10.8) K/ul RBC (4.70-6.10) M/uL Hgb (14.0-18.0) g/dl POC Hgb (14.0-18.0) g/dl Hct (42.0-52.0) % POC Hct (42-52) % MCV (80.0-100.0) fL MCH (25.0-34.0) pg MCHC (32.0-36.0) g/dL RDW Std Deviation (36.4-46.3) fL RDW Coeff of Scott (11.5-14.5) % Plt Count (130-400) K/uL MPV (9.4-12.4) fL Immature Gran % (Auto) % Neut % (Auto) % Lymph % (Auto) % Maury % (Auto) % Eos % (Auto) % Baso % (Auto) % Neut # (Auto) (1.40-6.50) K/uL Lymph # (Auto) (1.20-3.40) K/uL Maury # (Auto) (0.11-0.59) K/uL Eos # (Auto) (0.00-0.50) K/uL Baso # (Auto) (0.00-0.20) K/uL Immature Gran # (Auto) (0.01-0.20) K/uL PT (9.0-12.0) Seconds INR (0.9-1.1) ABG pH (7.35-7.45) ABG pCO2 (35-46) mmHg ABG pO2 (80-95) mmHg ABG HCO3 (19-24) mmol/L ABG O2 Saturation (90-95) % ABG Base Excess (-9-1.8) mEq/L Domingo Test (Pos) VBG pH 7.29 L (7.36-7.41) VBG pCO2 50 (38-50) mmHg VBG pO2 51 mmHg VBG HCO3 24 mmol/L VBG O2 Saturation 72.1 % VBG Base Excess -3.1 mEq/L Oxygen Given POC Sodium (135-144) mmol/L Sodium (136-145) mmol/L POC Potassium (3.3-5.0) mmol/L Potassium (3.5-5.1) mmol/L POC Chloride (101-112) mmol/L Chloride (98-107) mmol/L Carbon Dioxide (21-32) mmol/L POC Total CO2 (24-31) mmol/L Anion Gap (3-11) POC Anion Gap (16-25) mmol/L POC BUN (7-18) mg/dl BUN (6-23) mg/dl Creatinine (0.6-1.4) mg/dl POC Creatinine (0.6-1.3) mg/dl Est Cr Clr Drug Dosing ml/min Est GFR ( Amer) ml/min Est GFR (Non-Af Amer) ml/min BUN/Creatinine Ratio (10-20) Glucose (70-99(Fasting)) mg/dl POC Glucose (70-99) mg/dl POC Glucose (other) (70-99) mg/dl Osmolality (280-300) mOsm/kg Lactate (0.4-2.0) mmol/L Calcium (8.6-10.3) mg/dl POC Ioniz Calcium Tho (1.12-1.32) mmol/l Phosphorus (2.5-4.9) mg/dl Magnesium (1.7-2.4) mg/dl Total Bilirubin (0.2-1.0) mg/dl Direct Bilirubin (0-0.2) mg/dl AST (13-39) U/L ALT (7-52) U/L Alkaline Phosphatase (34-104) U/L Total Creatine Kinase (30-223) U/L Troponin I High Sens (0-20) pg/ml Total Protein (6.0-8.3) gm/dl Albumin (3.4-5.0) gm/dl Lipase (11-82) U/L Procalcitonin (0-0.5) ng/ml TSH (0.300-4.500) uIu/ml Urine Color Yellow Urine Appearance Cloudy A (Clear) Urine pH 5.0 (4.5-7.5) Ur Specific [place] 1.018 (1.000-1.030) Urine Protein 1+ H (Negative) Urine Glucose (UA) 3+ H (Negative) Urine Ketones Negative (Negative) Urine Blood 3+ H (Negative) Urine Nitrite Negative (Negative) Urine Bilirubin Negative (Negative) Urine Urobilinogen Negative (Negative) Ur Leukocyte Esterase 2+ H (Negative) Urine WBC (Auto) >30 H (0-5) /hpf Urine RBC (Auto) 10-30 H (0-4) /hpf U Hyaline Cast (Auto) 1-5 (0-5) /lpf U Epithel Cells (Auto) 10-20 H (0-5) /lpf Urine Bacteria (Auto) Negative (Negative) WBC Casts 1-5 H (0) /lpf Urine Osmolality 406 L (500-800) mOsm/kg Ur Random Creatinine mg/dl Ur Random Sodium mmol/L Ur Random Potassium mmol/L Ur Random Chloride mmol/L Salicylates (3.0-30) mg/dl Acetaminophen (10-30) ug/ml Ethyl Alcohol mg/dL (<10.0) mg/dl Anaplasma Smear Babesia Smear Lyme Disease IgG Ab (Negative) Lyme Disease IgM Ab (Negative) SARS-CoV-2 (PCR) (Negative) Influenza Type A (PCR) (Neg) Influenza Type B (PCR) (Neg) RSV (RT-PCR) (Neg) 07/24/23 07/24/23 07/24/23 Range/Units 15:00 16:25 16:25 WBC (4.8-10.8) K/ul RBC (4.70-6.10) M/uL Hgb (14.0-18.0) g/dl POC Hgb (14.0-18.0) g/dl Hct (42.0-52.0) % POC Hct (42-52) % MCV (80.0-100.0) fL MCH (25.0-34.0) pg MCHC (32.0-36.0) g/dL RDW Std Deviation (36.4-46.3) fL RDW Coeff of Scott (11.5-14.5) % Plt Count (130-400) K/uL MPV (9.4-12.4) fL Immature Gran % (Auto) % Neut % (Auto) % Lymph % (Auto) % Maury % (Auto) % Eos % (Auto) % Baso % (Auto) % Neut # (Auto) (1.40-6.50) K/uL Lymph # (Auto) (1.20-3.40) K/uL Maury # (Auto) (0.11-0.59) K/uL Eos # (Auto) (0.00-0.50) K/uL Baso # (Auto) (0.00-0.20) K/uL Immature Gran # (Auto) (0.01-0.20) K/uL PT (9.0-12.0) Seconds INR (0.9-1.1) ABG pH (7.35-7.45) ABG pCO2 (35-46) mmHg ABG pO2 (80-95) mmHg ABG HCO3 (19-24) mmol/L ABG O2 Saturation (90-95) % ABG Base Excess (-9-1.8) mEq/L Domingo Test (Pos) VBG pH (7.36-7.41) VBG pCO2 (38-50) mmHg VBG pO2 mmHg VBG HCO3 mmol/L VBG O2 Saturation % VBG Base Excess mEq/L Oxygen Given POC Sodium (135-144) mmol/L Sodium 140 (136-145) mmol/L POC Potassium (3.3-5.0) mmol/L Potassium 3.6 (3.5-5.1) mmol/L POC Chloride (101-112) mmol/L Chloride 107 (98-107) mmol/L Carbon Dioxide 21 (21-32) mmol/L POC Total CO2 (24-31) mmol/L Anion Gap 12 H (3-11) POC Anion Gap (16-25) mmol/L POC BUN (7-18) mg/dl BUN 122 H (6-23) mg/dl Creatinine 3.09 H (0.6-1.4) mg/dl POC Creatinine (0.6-1.3) mg/dl Est Cr Clr Drug Dosing 18.1 ml/min Est GFR ( Amer) 21.4 ml/min Est GFR (Non-Af Amer) 18.5 ml/min BUN/Creatinine Ratio 39.5 H (10-20) Glucose 694 H* (70-99(Fasting)) mg/dl POC Glucose (70-99) mg/dl POC Glucose (other) (70-99) mg/dl Osmolality (280-300) mOsm/kg Lactate (0.4-2.0) mmol/L Calcium 8.0 L (8.6-10.3) mg/dl POC Ioniz Calcium Tho (1.12-1.32) mmol/l Phosphorus (2.5-4.9) mg/dl Magnesium (1.7-2.4) mg/dl Total Bilirubin (0.2-1.0) mg/dl Direct Bilirubin (0-0.2) mg/dl AST (13-39) U/L ALT (7-52) U/L Alkaline Phosphatase (34-104) U/L Total Creatine Kinase (30-223) U/L Troponin I High Sens 102.7 H* (0-20) pg/ml Total Protein (6.0-8.3) gm/dl Albumin (3.4-5.0) gm/dl Lipase (11-82) U/L Procalcitonin (0-0.5) ng/ml TSH 1.716 (0.300-4.500) uIu/ml Urine Color Urine Appearance (Clear) Urine pH (4.5-7.5) Ur Specific [place] (1.000-1.030) Urine Protein (Negative) Urine Glucose (UA) (Negative) Urine Ketones (Negative) Urine Blood (Negative) Urine Nitrite (Negative) Urine Bilirubin (Negative) Urine Urobilinogen (Negative) Ur Leukocyte Esterase (Negative) Urine WBC (Auto) (0-5) /hpf Urine RBC (Auto) (0-4) /hpf U Hyaline Cast (Auto) (0-5) /lpf U Epithel Cells (Auto) (0-5) /lpf Urine Bacteria (Auto) (Negative) WBC Casts (0) /lpf Urine Osmolality (500-800) mOsm/kg Ur Random Creatinine 38.5 mg/dl Ur Random Sodium 14 mmol/L Ur Random Potassium 24.3 mmol/L Ur Random Chloride < 15 mmol/L Salicylates (3.0-30) mg/dl Acetaminophen (10-30) ug/ml Ethyl Alcohol mg/dL < 10.0 (<10.0) mg/dl Anaplasma Smear Babesia Smear Lyme Disease IgG Ab (Negative) Lyme Disease IgM Ab (Negative) SARS-CoV-2 (PCR) (Negative) Influenza Type A (PCR) (Neg) Influenza Type B (PCR) (Neg) RSV (RT-PCR) (Neg) 07/24/23 07/24/23 07/24/23 Range/Units 16:25 17:06 17:10 WBC (4.8-10.8) K/ul RBC (4.70-6.10) M/uL Hgb (14.0-18.0) g/dl POC Hgb (14.0-18.0) g/dl Hct (42.0-52.0) % POC Hct (42-52) % MCV (80.0-100.0) fL MCH (25.0-34.0) pg MCHC (32.0-36.0) g/dL RDW Std Deviation (36.4-46.3) fL RDW Coeff of Scott (11.5-14.5) % Plt Count (130-400) K/uL MPV (9.4-12.4) fL Immature Gran % (Auto) % Neut % (Auto) % Lymph % (Auto) % Maury % (Auto) % Eos % (Auto) % Baso % (Auto) % Neut # (Auto) (1.40-6.50) K/uL Lymph # (Auto) (1.20-3.40) K/uL Maury # (Auto) (0.11-0.59) K/uL Eos # (Auto) (0.00-0.50) K/uL Baso # (Auto) (0.00-0.20) K/uL Immature Gran # (Auto) (0.01-0.20) K/uL PT (9.0-12.0) Seconds INR (0.9-1.1) ABG pH (7.35-7.45) ABG pCO2 (35-46) mmHg ABG pO2 (80-95) mmHg ABG HCO3 (19-24) mmol/L ABG O2 Saturation (90-95) % ABG Base Excess (-9-1.8) mEq/L Domingo Test (Pos) VBG pH (7.36-7.41) VBG pCO2 (38-50) mmHg VBG pO2 mmHg VBG HCO3 mmol/L VBG O2 Saturation % VBG Base Excess mEq/L Oxygen Given POC Sodium (135-144) mmol/L Sodium (136-145) mmol/L POC Potassium (3.3-5.0) mmol/L Potassium (3.5-5.1) mmol/L POC Chloride (101-112) mmol/L Chloride (98-107) mmol/L Carbon Dioxide (21-32) mmol/L POC Total CO2 (24-31) mmol/L Anion Gap (3-11) POC Anion Gap (16-25) mmol/L POC BUN (7-18) mg/dl BUN (6-23) mg/dl Creatinine (0.6-1.4) mg/dl POC Creatinine (0.6-1.3) mg/dl Est Cr Clr Drug Dosing ml/min Est GFR ( Amer) ml/min Est GFR (Non-Af Amer) ml/min BUN/Creatinine Ratio (10-20) Glucose (70-99(Fasting)) mg/dl POC Glucose 594 H* (70-99) mg/dl POC Glucose (other) (70-99) mg/dl Osmolality (280-300) mOsm/kg Lactate (0.4-2.0) mmol/L Calcium (8.6-10.3) mg/dl POC Ioniz Calcium Tho (1.12-1.32) mmol/l Phosphorus (2.5-4.9) mg/dl Magnesium (1.7-2.4) mg/dl Total Bilirubin (0.2-1.0) mg/dl Direct Bilirubin (0-0.2) mg/dl AST (13-39) U/L ALT (7-52) U/L Alkaline Phosphatase (34-104) U/L Total Creatine Kinase (30-223) U/L Troponin I High Sens (0-20) pg/ml Total Protein (6.0-8.3) gm/dl Albumin (3.4-5.0) gm/dl Lipase (11-82) U/L Procalcitonin (0-0.5) ng/ml TSH (0.300-4.500) uIu/ml Urine Color Urine Appearance (Clear) Urine pH (4.5-7.5) Ur Specific [place] (1.000-1.030) Urine Protein (Negative) Urine Glucose (UA) (Negative) Urine Ketones (Negative) Urine Blood (Negative) Urine Nitrite (Negative) Urine Bilirubin (Negative) Urine Urobilinogen (Negative) Ur Leukocyte Esterase (Negative) Urine WBC (Auto) (0-5) /hpf Urine RBC (Auto) (0-4) /hpf U Hyaline Cast (Auto) (0-5) /lpf U Epithel Cells (Auto) (0-5) /lpf Urine Bacteria (Auto) (Negative) WBC Casts (0) /lpf Urine Osmolality (500-800) mOsm/kg Ur Random Creatinine mg/dl Ur Random Sodium mmol/L Ur Random Potassium mmol/L Ur Random Chloride mmol/L Salicylates < 3.0 L (3.0-30) mg/dl Acetaminophen < 3 L (10-30) ug/ml Ethyl Alcohol mg/dL (<10.0) mg/dl Anaplasma Smear Babesia Smear Lyme Disease IgG Ab (Negative) Lyme Disease IgM Ab (Negative) SARS-CoV-2 (PCR) NEGATIVE (Negative) Influenza Type A (PCR) Negative (Neg) Influenza Type B (PCR) Negative (Neg) RSV (RT-PCR) Negative (Neg) 07/24/23 07/24/23 07/24/23 Range/Units 17:28 17:28 17:33 WBC (4.8-10.8) K/ul RBC (4.70-6.10) M/uL Hgb (14.0-18.0) g/dl POC Hgb (14.0-18.0) g/dl Hct (42.0-52.0) % POC Hct (42-52) % MCV (80.0-100.0) fL MCH (25.0-34.0) pg MCHC (32.0-36.0) g/dL RDW Std Deviation (36.4-46.3) fL RDW Coeff of Scott (11.5-14.5) % Plt Count (130-400) K/uL MPV (9.4-12.4) fL Immature Gran % (Auto) % Neut % (Auto) % Lymph % (Auto) % Maury % (Auto) % Eos % (Auto) % Baso % (Auto) % Neut # (Auto) (1.40-6.50) K/uL Lymph # (Auto) (1.20-3.40) K/uL Maury # (Auto) (0.11-0.59) K/uL Eos # (Auto) (0.00-0.50) K/uL Baso # (Auto) (0.00-0.20) K/uL Immature Gran # (Auto) (0.01-0.20) K/uL PT (9.0-12.0) Seconds INR (0.9-1.1) ABG pH 7.38 (7.35-7.45) ABG pCO2 38 (35-46) mmHg ABG pO2 96 H (80-95) mmHg ABG HCO3 23 (19-24) mmol/L ABG O2 Saturation 98.5 H (90-95) % ABG Base Excess -2.3 (-9-1.8) mEq/L Domingo Test Pos (Pos) VBG pH (7.36-7.41) VBG pCO2 (38-50) mmHg VBG pO2 mmHg VBG HCO3 mmol/L VBG O2 Saturation % VBG Base Excess mEq/L Oxygen Given 2 L POC Sodium (135-144) mmol/L Sodium (136-145) mmol/L POC Potassium (3.3-5.0) mmol/L Potassium (3.5-5.1) mmol/L POC Chloride (101-112) mmol/L Chloride (98-107) mmol/L Carbon Dioxide (21-32) mmol/L POC Total CO2 (24-31) mmol/L Anion Gap (3-11) POC Anion Gap (16-25) mmol/L POC BUN (7-18) mg/dl BUN (6-23) mg/dl Creatinine (0.6-1.4) mg/dl POC Creatinine (0.6-1.3) mg/dl Est Cr Clr Drug Dosing ml/min Est GFR ( Amer) ml/min Est GFR (Non-Af Amer) ml/min BUN/Creatinine Ratio (10-20) Glucose (70-99(Fasting)) mg/dl POC Glucose (70-99) mg/dl POC Glucose (other) (70-99) mg/dl Osmolality (280-300) mOsm/kg Lactate 3.3 H* (0.4-2.0) mmol/L Calcium (8.6-10.3) mg/dl POC Ioniz Calcium Tho (1.12-1.32) mmol/l Phosphorus (2.5-4.9) mg/dl Magnesium (1.7-2.4) mg/dl Total Bilirubin (0.2-1.0) mg/dl Direct Bilirubin (0-0.2) mg/dl AST (13-39) U/L ALT (7-52) U/L Alkaline Phosphatase (34-104) U/L Total Creatine Kinase (30-223) U/L Troponin I High Sens (0-20) pg/ml Total Protein (6.0-8.3) gm/dl Albumin (3.4-5.0) gm/dl Lipase (11-82) U/L Procalcitonin (0-0.5) ng/ml TSH (0.300-4.500) uIu/ml Urine Color Urine Appearance (Clear) Urine pH (4.5-7.5) Ur Specific [place] (1.000-1.030) Urine Protein (Negative) Urine Glucose (UA) (Negative) Urine Ketones (Negative) Urine Blood (Negative) Urine Nitrite (Negative) Urine Bilirubin (Negative) Urine Urobilinogen (Negative) Ur Leukocyte Esterase (Negative) Urine WBC (Auto) (0-5) /hpf Urine RBC (Auto) (0-4) /hpf U Hyaline Cast (Auto) (0-5) /lpf U Epithel Cells (Auto) (0-5) /lpf Urine Bacteria (Auto) (Negative) WBC Casts (0) /lpf Urine Osmolality (500-800) mOsm/kg Ur Random Creatinine mg/dl Ur Random Sodium mmol/L Ur Random Potassium mmol/L Ur Random Chloride mmol/L Salicylates (3.0-30) mg/dl Acetaminophen (10-30) ug/ml Ethyl Alcohol mg/dL (<10.0) mg/dl Anaplasma Smear See Comment Babesia Smear See Comment Lyme Disease IgG Ab (Negative) Lyme Disease IgM Ab (Negative) SARS-CoV-2 (PCR) (Negative) Influenza Type A (PCR) (Neg) Influenza Type B (PCR) (Neg) RSV (RT-PCR) (Neg) 07/24/23 Range/Units 18:11 WBC (4.8-10.8) K/ul RBC (4.70-6.10) M/uL Hgb (14.0-18.0) g/dl POC Hgb (14.0-18.0) g/dl Hct (42.0-52.0) % POC Hct (42-52) % MCV (80.0-100.0) fL MCH (25.0-34.0) pg MCHC (32.0-36.0) g/dL RDW Std Deviation (36.4-46.3) fL RDW Coeff of Scott (11.5-14.5) % Plt Count (130-400) K/uL MPV (9.4-12.4) fL Immature Gran % (Auto) % Neut % (Auto) % Lymph % (Auto) % Maury % (Auto) % Eos % (Auto) % Baso % (Auto) % Neut # (Auto) (1.40-6.50) K/uL Lymph # (Auto) (1.20-3.40) K/uL Maury # (Auto) (0.11-0.59) K/uL Eos # (Auto) (0.00-0.50) K/uL Baso # (Auto) (0.00-0.20) K/uL Immature Gran # (Auto) (0.01-0.20) K/uL PT (9.0-12.0) Seconds INR (0.9-1.1) ABG pH (7.35-7.45) ABG pCO2 (35-46) mmHg ABG pO2 (80-95) mmHg ABG HCO3 (19-24) mmol/L ABG O2 Saturation (90-95) % ABG Base Excess (-9-1.8) mEq/L Domingo Test (Pos) VBG pH (7.36-7.41) VBG pCO2 (38-50) mmHg VBG pO2 mmHg VBG HCO3 mmol/L VBG O2 Saturation % VBG Base Excess mEq/L Oxygen Given POC Sodium (135-144) mmol/L Sodium (136-145) mmol/L POC Potassium (3.3-5.0) mmol/L Potassium (3.5-5.1) mmol/L POC Chloride (101-112) mmol/L Chloride (98-107) mmol/L Carbon Dioxide (21-32) mmol/L POC Total CO2 (24-31) mmol/L Anion Gap (3-11) POC Anion Gap (16-25) mmol/L POC BUN (7-18) mg/dl BUN (6-23) mg/dl Creatinine (0.6-1.4) mg/dl POC Creatinine (0.6-1.3) mg/dl Est Cr Clr Drug Dosing ml/min Est GFR ( Amer) ml/min Est GFR (Non-Af Amer) ml/min BUN/Creatinine Ratio (10-20) Glucose (70-99(Fasting)) mg/dl POC Glucose 489 H* (70-99) mg/dl POC Glucose (other) (70-99) mg/dl Osmolality (280-300) mOsm/kg Lactate (0.4-2.0) mmol/L Calcium (8.6-10.3) mg/dl POC Ioniz Calcium Tho (1.12-1.32) mmol/l Phosphorus (2.5-4.9) mg/dl Magnesium (1.7-2.4) mg/dl Total Bilirubin (0.2-1.0) mg/dl Direct Bilirubin (0-0.2) mg/dl AST (13-39) U/L ALT (7-52) U/L Alkaline Phosphatase (34-104) U/L Total Creatine Kinase (30-223) U/L Troponin I High Sens (0-20) pg/ml Total Protein (6.0-8.3) gm/dl Albumin (3.4-5.0) gm/dl Lipase (11-82) U/L Procalcitonin (0-0.5) ng/ml TSH (0.300-4.500) uIu/ml Urine Color Urine Appearance (Clear) Urine pH (4.5-7.5) Ur Specific [place] (1.000-1.030) Urine Protein (Negative) Urine Glucose (UA) (Negative) Urine Ketones (Negative) Urine Blood (Negative) Urine Nitrite (Negative) Urine Bilirubin (Negative) Urine Urobilinogen (Negative) Ur Leukocyte Esterase (Negative) Urine WBC (Auto) (0-5) /hpf Urine RBC (Auto) (0-4) /hpf U Hyaline Cast (Auto) (0-5) /lpf U Epithel Cells (Auto) (0-5) /lpf Urine Bacteria (Auto) (Negative) WBC Casts (0) /lpf Urine Osmolality (500-800) mOsm/kg Ur Random Creatinine mg/dl Ur Random Sodium mmol/L Ur Random Potassium mmol/L Ur Random Chloride mmol/L Salicylates (3.0-30) mg/dl Acetaminophen (10-30) ug/ml Ethyl Alcohol mg/dL (<10.0) mg/dl Anaplasma Smear Babesia Smear Lyme Disease IgG Ab (Negative) Lyme Disease IgM Ab (Negative) SARS-CoV-2 (PCR) (Negative) Influenza Type A (PCR) (Neg) Influenza Type B (PCR) (Neg) RSV (RT-PCR) (Neg) Administered Medications Insulin Human Regular 250 (units/ Sodium Chloride) 250 mls @ 7.6 mls/hr IV .Q24H DARIN; Protocol Stop: 08/23/23 15:29 Last Titration: 07/24/23 17:09 Dose: 9.1 units/hr, 9.1 mls/hr Documented By: CHANEL Co-signed By: ROMULO Admin: 07/24/23 15:53 Dose: 7.6 units/hr, 7.6 mls/hr Documented By: ROMULO Co-signed By: CHANEL Potassium Chloride/Sodium Chloride (1/2 Nss + 20meq Kcl 1000ml) 20 meq in 1,000 mls @ 250 mls/hr IV .Q4H DARIN; Protocol Stop: 08/23/23 15:29 Last Admin: 07/24/23 15:53 Dose: 250 mls/hr Documented By: ROMULO Discontinued Medications Sodium Chloride (Nss) 2,000 mls @ 999 mls/hr IV .Q2H1M ONE Stop: 07/24/23 15:18 Last Admin: 07/24/23 13:10 Dose: 999 mls/hr Documented By: CHANEL Cefepime HCl (Maxipime) 2,000 mg in 20 mls @ 5 mls/min IV NOW STA; Protocol Stop: 07/24/23 15:01 Last Admin: 07/24/23 15:54 Dose: 5 mls/min Documented By: ROMULO Vancomycin HCl 2,000 mg/ (Sodium Chloride) 540 mls @ 200 mls/hr IV NOW ONE Stop: 07/24/23 17:55 Last Admin: 07/24/23 15:53 Dose: 200 mls/hr Documented By: ROMULO Insulin Human Regular (Novolin-R Bolus From Bag) 7.6 units IV ONE ONE Stop: 07/24/23 15:46 Last Admin: 07/24/23 15:54 Dose: 7.6 units Documented By: ROMULO Co-signed By: CHANEL Metoprolol Tartrate (Metoprolol Tartrate 1 Mg/Ml Vial) 5 mg IV NOW STA Stop: 07/24/23 13:21 Last Admin: 07/24/23 14:17 Dose: 5 mg Documented By: CHANEL Metoprolol Tartrate (Metoprolol Tartrate 1 Mg/Ml Vial) 5 mg IV NOW STA Stop: 07/24/23 13:51 Last Admin: 07/24/23 16:04 Dose: Not Given Documented By: CHANEL Imaging Data Radiologist's Impression: Chest X-Ray 07/24/23 13:18 XR chest 1V portable HISTORY: Sepsis COMPARISON: Chest 04/29/2023. FINDINGS: No pneumothorax. No pleural effusions. The cardiac silhouette remains mildly enlarged. No evidence for pulmonary edema. No new focal lung consolidations to suggest a pneumonia. No acute fractures identified. IMPRESSION: No significant change compared to the prior study. No acute process. ACT 112: Negative or not required by law. Electronically signed by: Del Blackburn M.D. 07/24/2023 1:43 PM Discharge Plan Visit Data Chief Complaint: Confusion Stated Complaint: CONFUSION ED Provider: Cross,Mane E Discharge Problem: Hyperosmolar hyperglycemic state (HHS), Homelessness, DKA (diabetic ket oacidosis), Elevated troponin, Sepsis, Acute renal failure, Indwelling [place]anna catheter present, Atrial flutter with rapid ventricular response Discharge Instructions Interventions: ED Discharge Assessment Last Done: 07/24/23 18:44 Forms Stand Alone Forms: [facility] Prescriptions Prescriptions: No Action furosemide 40 mg tablet 40 mg PO QPM Rx Instructions: Patient only taking 40mg at night if needed for swelling Xultophy 100/3.6 100 unit-3.6 mg /mL (3 mL) insulin pen 20 unit subcut HS tamsulosin 0.4 mg capsule 0.4 mg PO DAILY Qty: 30 11RF finasteride 5 mg tablet 5 mg PO DAILY Qty: 30 11RF metformin 500 mg tablet extended release 24 hr 1,000 mg PO QAM insulin aspart U-100 [Novolog FlexPen U-100 Insulin] 100 unit/mL (3 mL) Insulin Pen 5 unit SUBCUT TIDM metoprolol tartrate 25 mg tablet 25 mg PO BID furosemide 40 mg tablet 80 mg PO QAM Rx Instructions: Pt only taking 80mg by mouth in the morning as needed for swelling atorvastatin 40 mg tablet 40 mg PO QAM Eliquis 5 mg tablet 5 mg PO BID Qty: 60 0RF Referrals Referrals: James Maria DO [Primary Care Provider] -
[2023-07-24 14:43] LABS: Basophils # (auto) 0.04 K/uL (0.00-0.20); Basophils % (auto) 0.2 %; Eosinophils # (auto) 0.07 K/uL (0.00-0.50); Eosinophils % (auto) 0.4 %; Hematocrit (blood only) 44.8 % (42.0-52.0); Hemoglobin 14.7 g/dl (14.0-18.0); Immature Granulocytes # (auto) 0.05 K/uL (0.01-0.20); Immature Granulocytes % (auto) 0.3 %; Lymphocytes # (auto) 0.89 K/uL (1.20-3.40); Lymphocytes % (auto) 5.3 %; Mean Corpuscular Hemoglobin 28.7 pg (25.0-34.0); Mean Corpuscular Hgb Conc 32.8 g/dL (32.0-36.0); Mean Corpuscular Volume 87.5 fL (80.0-100.0); Mean Platelet Volume 11.8 fL (9.4-12.4); Monocytes # (auto) 1.08 K/uL (0.11-0.59); Monocytes % (auto) 6.5 %; Neutrophils # (auto) 14.52 K/uL (1.40-6.50); Neutrophils % (auto) 87.3 %; Platelet Count 218 K/uL (130-400); RDW Coefficient of Variation 13.9 % (11.5-14.5); Red Blood Count 5.12 M/uL (4.70-6.10); White Blood Count 16.65 K/ul (4.8-10.8)
[2023-07-24 14:56] LABS: Base Excess VBG -3.1 mEq/L; HCO3 VBG 24 mmol/L; Oxygen Saturation VBG 72.1 %; PCO2 VBG 50 mmHg (38-50); PO2 VBG 51 mmHg; pH VBG 7.29 (7.36-7.41)
[2023-07-24] MEDS ORDERED: CEFEPIME 2,000 MG/20 ML VIAL IV STA (14:58)
[2023-07-24 15:03] LABS: INR 1.2 (0.9-1.1)
[2023-07-24] MEDS ORDERED: VANCOMYCIN CONSULT ACTIVE PRN (15:14)
[2023-07-24] MEDS ORDERED: VANCOMYCIN HCL 2,000 MG in SODIUM CHLORIDE 0.9% 500 ML IV ONE (15:14)
[2023-07-24 15:21] LABS: Albumin Level 3.1 gm/dl (3.4-5.0); BUN Creatinine Ratio 38.1 (10-20); Bilirubin Direct 0.1 mg/dl (0-0.2); Bilirubin,Total 0.5 mg/dl (0.2-1.0); Calcium 8.7 mg/dl (8.6-10.3); Est GFR (African American) 19.9 ml/min; Est GFR (Non-African American) 17.2 ml/min; Magnesium 2.9 mg/dl (1.7-2.4); Phosphorus 5.8 mg/dl (2.5-4.9); Potassium 3.9 mmol/L (3.5-5.1); Total Protein 7.4 gm/dl (6.0-8.3); Troponin I High Sensitivity 110.4 pg/ml (0-20)
[2023-07-24] MEDS ORDERED: GLUCOSE 40% GEL 15 GM TUBE PO PRN (15:26)
[2023-07-24] MEDS ORDERED: STAT IV Infusion **Titration per Protocol STA (15:26)
[2023-07-24] MEDS ORDERED: HHS GOAL RANGE 250-350 mg/dl ONE ×2 (15:26→19:42)
[2023-07-24] MEDS ORDERED: GLUCAGON FOR INJ 1 MG VIAL SQ PRN (15:26)
[2023-07-24] MEDS ORDERED: DEXTROSE 50% 50 ML SYRINGE IV PRN (15:26)
[2023-07-24] MEDS ORDERED: GLUCOSE 10 TAB/TUBE PO PRN (15:26)
[2023-07-24] MEDS ORDERED: INSULIN REGULAR 250 UNITS in SODIUM CHLORIDE 0.9% 247.5 ML IV SCH (15:30)
[2023-07-24 15:37] LABS: Appearance Urine Cloudy (Clear); Bacteria Urine Automated Negative (Negative); Bilirubin Urine Negative (Negative); Blood Urine 3+ (Negative); Color Urine Yellow; Glucose Urine UA 3+ (Negative); Ketones Urine Negative (Negative); Leukocyte Esterase Urine 2+ (Negative); Nitrite Urine Negative (Negative); Protein Urine 1+ (Negative); Specific Gravity Urine 1.018 (1.000-1.030); Urobilinogen Urine Negative (Negative); WBC Urine Automated >30 /hpf (0-5)
[2023-07-24] MEDS ORDERED: NovoLIN-R BOLUS FROM BAG IV ONE (15:45)
[2023-07-24] MEDS: SODIUM CHLOR 0.45% + 20MEQ KCL 20 MEQ/1,000 ML BAG IV SCH (15:53)
[2023-07-24 16:23] LABS: Lyme Ab IgG w/WB Rflx Negative (Negative); Lyme Ab IgM w/WB Rflx Negative (Negative)
--- NOTE | 2023-07-24 16:25 | Critical Care Consultation ---
Date of Consultation July 24, 2023 Assessment & Plan (1) Elevated troponin: (2) Severe aortic stenosis: (3) Acute electrocardiogram changes: (4) Chronic heart failure with preserved ejection fraction (HFpEF): (5) CESAR (acute kidney injury): (6) Metabolic encephalopathy: (7) High anion gap metabolic acidosis: (8) Admitted to intensive care unit: (9) Paroxysmal atrial fibrillation: (10) Diabetes mellitus, type II: Plan Reason Critically Ill: 77-year-old male past medical history of HFpEF, paroxysmal A-fib on apixaban, diabetes, dyslipidemia presented to the hospital with A-fib with RVR and hypotension Chest x-ray 07/24/2023 personally reviewed: Portable film, fair inspiratory effort, bilateral costophrenic and cardiophrenic intersecting, increased cardiac silhouette, increased pulmonary vascular markings 2D echo 04/30/2023: EF 50-55%, moderate concentric LVH, moderate to severe aortic stenosis, moderate mitral calcification, RV normal in size and function Neuro - [facility]: Negative -- Altered mental status Patient is very hard to hear It is difficult to ascertain whether he is truly encephalopathic, HHS might be playing a role With sign language he answers all the questions appropriately Follow-up TSH and free T4 Cardiac - -- Hypotension Patient responded to IV fluids Continue to monitor -- A-fib with RVR At the time of presentation Rate controlled now after IV fluid bolus --Elevated troponin with T wave inversions Continue to trend Eat G 07/24/2023: Sinus rhythm, left axis deviation with LVH, incomplete right bundle branch block, T wave inversions with ST depression in the lateral leads Respiratory - -- Acute hypoxic respiratory failure Does have some patchy opacities on the chest x-ray Continue with O2 supplementation to keep oxygen saturation 90-92% GI - -- No acute issues RENAL/LYTES - --High anion gap Delta-delta: Greater than 2, metabolic acidosis plus alkalosis High anion gap is likely from lactic acidosis, alkalosis could be from CESAR Follow up serum osm, urine osm, urine lytes Follow up ABG Monitor -- CESAR Follow-up urine lites Monitor BUN/creatinine Avoid nephrotoxic medications Strict ins and outs - -- BPH On finasteride and tamsulosin ENDO - -- HHS Continue with insulin drip until anion gap closes Decreasing blood glucose no more than 100 in an hour Replace potassium IV when potassium level between 3.3-5.3 BMP every 4 hours Continue with IV fluids HEME - -- Monitor H&H ID - -- Leukocytosis Urine negative for bacteria and leukocyte esterase Procalcitonin 1.65 On physical exam patient does have crackles Treat as if patient has pneumonia --Prophylaxis VTE: Apixaban GI: Pantoprazole Lines: Peripheral Diet: N.p.o. Plan: Given the hyponatremia would recommend half NS fluids after resuscitation is done Continue with broad-spectrum antibiotics Follow-up TSH Strict in and out Follow-up urine lites Do not decrease the blood glucose more than 100/h I have personally spent 55 minutes of critical care time in the direct management of this patient. This is a life/limb threatening event. This includes time spent evaluating patient, direct bedside care, chart review, placing orders, interpretation of diagnostic studies, discussion with consultants, patient, and family members, as well as other required patient management activities. This time is exclusive of all separately billable procedures, and teaching time and separate from and in addition to any other critical care service time. History of Present Illness History of Present Illness 77-year-old male present to the hospital brought to the hospital for altered mental status Past medical history: HFpEF, paroxysmal A-fib on Eliquis, hypertension, dyslipidemia ICU consulted for hypotension and DKA When patient presented to the ER his heart rate was in the 170s-180s. He was given adenosine x2. He received a bolus after which his heart rate went to 150s. He was given 5 mg of Lopressor which finally led to his rhythm going back to sinus At the time of examination patient's heart rate was in the low 70s. Saturation 94% on 2 L. Blood pressure in the 130s He is very hard to hear. He denied any pain except for the left lower extremity where he got intraosseous line. Denies any issues with breathing. No abdominal pain. He was recently admitted to treated with UTI with negative cultures. Patient is very hard to hear. History was obtained from previous records and ER chart Allergies Allergy/AdvReac Type Severity Reaction Status Date / Time lisinopril Allergy Severe Swelling Verified 05/26/23 14:21 of Face/Lips/Tongue Home Medications Medication Instructions Recorded Confirmed Type atorvastatin 40 mg tablet 40 mg PO QAM 11/08/21 07/24/23 History apixaban 5 mg tablet (Eliquis) 5 mg PO BID #60 tabs 11/11/21 07/24/23 Rx insulin aspart U-100 100 unit/mL 5 unit subcut TIDM 05/16/22 07/24/23 History (3 mL) subcutaneous pen (Novolog FlexPen U-100 Insulin aspart) metformin 500 mg tablet,extended 1,000 mg PO QAM 05/16/22 07/24/23 History release 24 hr metoprolol tartrate 25 mg tablet 25 mg PO BID 05/16/22 07/24/23 History furosemide 40 mg tablet 40 mg PO QPM 11/20/22 07/24/23 History furosemide 40 mg tablet 80 mg PO QAM 11/20/22 07/24/23 History finasteride 5 mg tablet 5 mg PO DAILY #30 tabs 05/20/23 07/24/23 Rx tamsulosin 0.4 mg capsule 0.4 mg PO DAILY #30 caps 05/20/23 07/24/23 Rx insulin degludec 100 20 unit subcut HS 06/17/23 07/24/23 History unit-liraglutide 3.6 mg/mL(3 mL) subcutaneous pen (Xultophy 100/3.6) Patient History Medical History (Updated 07/24/23 @ 16:52 by Marga Le PA-C) Abnormal urinalysis Acute hyperglycemia Acute hypokalemia Atrial fibrillation with rapid ventricular response Bilateral edema of lower extremity BPH (benign prostatic hyperplasia) Cellulitis D-dimer, elevated Diabetes mellitus, type II DM type 2 (diabetes mellitus, type 2) DVT prophylaxis Dyslipidemia Dyspnea Edema of both legs Elevated brain natriuretic peptide (BNP) level Hearing loss Heart failure with preserved ejection fraction HTN (hypertension) Hypertension Hypokalemia Leukocytosis Moderate aortic stenosis Paroxysmal atrial fibrillation Paroxysmal atrial fibrillation Premature atrial complexes Puncture wound of foot, right Right foot infection Volume overload Surgical History (Updated 06/17/23 @ 16:06 by Chanell Darden PA-C) H/O shoulder surgery History of ear surgery age 19, mastoid S/P foot surgery, left Family History Brother Diabetes Social History Smoking Status: Former smoker Tobacco Type: Cigarettes Second Hand Exposure: No; Do You Dip or Chew Tobacco: No; Hx Alcohol Use: No Hx Substance Use: No Preferred Language: Vietnamese Communication Ability: Impaired Communication Ability Comment: pt very hard of hearing Fresh Food Manager Required: No Beliefs That Will Affect Care: None marital status: Current Living Situation: Alone Current Living Situation Comment: lives in a building that has no running water How many Children do You have: 3 Feels Safe at Home: Yes Assistive Devices: Cane Review of Systems Review of Systems: All systems reviewed & are unremarkable except as noted in HPI & below Physical Exam Physical Exam: Constitutional: No acute distress HEENT: EOMI, PERRLA Respiratory system: Decreased air entry bilaterally, no wheeze, no rhonchi, positive crackles bilaterally CVS: S1-S2 positive, 3 out of 6 systolic murmur appreciated best at the aorta Abdomen: Soft, nontender, nondistended, positive bowel sounds x4 Extremities: +2 pulses bilaterally radialis, no cyanosis, no edema, +1 pulses bilateral lower extremities, Right extremity warm, chronic venous stasis of the right lower extremity, left lower extremity cold Neuro: Awake alert oriented x3 Psych: Normal mood and affect G/U: Positive Hanna Skin: no rashes, warm and dry Lymphatic: no cervical or axillary lymphadenopathy Results & Data Results & Data Vital Signs (Past 12 Hours) Vital Signs Temp Pulse Resp BP Pulse Ox O2 Del Method O2 Flow Rate 07/24/23 14:45 138 H 22 97 07/24/23 14:43 130 H 24 96 07/24/23 14:43 97/70 L 07/24/23 14:40 145 H 25 H 97 07/24/23 14:35 134 H 25 H 99 07/24/23 14:30 130 H 24 96 07/24/23 14:25 140 H 25 H 87 L 07/24/23 14:20 157 H 19 83 L 07/24/23 14:15 153 H 27 H 89 L 07/24/23 14:10 154 H 27 H 90 07/24/23 14:10 109/74 07/24/23 14:06 94/65 L 07/24/23 14:06 154 H 28 H 91 07/24/23 14:05 162 H 26 H 92 07/24/23 14:01 154 H 26 H 07/24/23 13:51 167 H 28 H 93 Nasal Cannula 2 07/24/23 13:40 166 H 26 H 80/65 L 90 Nasal Cannula 2 07/24/23 13:32 150 H 25 H 135/60 93 Nasal Cannula 2 07/24/23 13:30 173 H 27 H 135/60 94 Nasal Cannula 2 07/24/23 13:20 160 H 26 H 110/78 85 L Nasal Cannula 2 07/24/23 13:15 159 H 23 07/24/23 13:10 169 H 23 110/75 07/24/23 13:05 171 H 23 07/24/23 13:00 159 H 28 H 07/24/23 13:18 36.7 C 162 H 22 110/78 87 L Room Air 07/24/23 12:56 172 H Laboratory Results 07/24/23 13:10 07/24/23 13:10 Coding Level of Care Code 68975 CRITICAL CARE 1ST 30-74M Diagnoses Elevated troponin R77.8 Severe aortic stenosis I35.0 Acute electrocardiogram changes R94.31 Chronic heart failure with preserved ejection fraction (HFpEF) I50.32 CESAR (acute kidney injury) N17.9 Metabolic encephalopathy G93.41 High anion gap metabolic acidosis E87.29 Admitted to intensive care unit Z78.9 Paroxysmal atrial fibrillation I48.0 Diabetes mellitus, type II E11.9 Time Spent (min) 55
--- NOTE | 2023-07-24 16:33 | History & Physical Report ---
Date of Service July 24, 2023 Assessment & Plan (1) Admitted to intensive care unit: (2) DKA (diabetic ketoacidosis): (3) High anion gap metabolic acidosis: (4) Metabolic encephalopathy: (5) Paroxysmal atrial fibrillation: (6) CESAR (acute kidney injury): (7) Elevated troponin: (8) Acute electrocardiogram changes: (9) Chronic heart failure with preserved ejection fraction (HFpEF): (10) Severe aortic stenosis: Plan This is a critically ill 77-year-old male who has a significant past medical history of medication noncompliance, T2DM, PAF anticoagulated on Eliquis, chronic HFpEF, moderate to severe aortic stenosis, HTN, HLD and BPH who presents to ED via EMS secondary to altered mental status. Admitted to intensive care unit DKA in setting of uncontrolled T2DM High anion gap metabolic acidosis Metabolic encephalopathy Lactic acidosis Patient being admitted to ICU Attending discussed with ICU provider Dr. Cruz continue insulin bolus/gtt Currently has 1/2NS + 20 meq KCL @ 250/hr q4h vbg ph, bmp, mag, phos trend lactic acid - received 2L in ED further tx and management as per steel inspector home regimen of basal/bolus insulin and metformin previous a1c 10.7 04/29/23 Possible Sepsis pt with initial tachycardia, leukocytosis, initial hypotension, lactic acidosis tachycardia improved after fluid administration/IV lopressor for afib blood/urine culture obtained empirically tx with vanco/cefepime in ED - will continue for now CT head/CT a/p pending lyme screen negative anaplasma, babesia ordered - pt recently dx with anaplasma and started on tx in May, uncertain if he completed tx CESAR baseline cr 0.8 presents with BUN/CR 125/3.28 likely profound dehydration Elevated troponin Acute EKG changes obtain stat echo per steel inspector, this was discussed with buttonhole marker cycle trops, likely in setting of critical illness EKG 73 NSR PAC, RBBB, LAFB, St t wave changes diffusely likely demand ischemia PAF initially presented in RVR, converted after IVF and IV metoprolol uncertain if compliant with eliquis will place on Heparin gtt for now Chronic HFpEF Severe Aortic Stenosis HTN HLD daily weights/strict intake and output recent echo: 04/2023 EF 50-55%, moderate concentric LVH, moderate to severe aortic stenosis, moderate mitral calcification, RV normal in size and function monitor volume status closey BPH with GORDON yee in place [facility] urology follow pt, yee exchanged in ED urine appears negative, await culture continue yee DVT ppx: IV heparin, transiton to eliquis when able to tolerate po FULL CODE - as per discussion with , will need reevaluated once pt more alert PCP: Elvie Maria Dispo: pt currently residing in a tent on a property of his that does not have running water which is unsafe, office of aging involved, lives with daughter in [facility] in [place] and she tells me occupancy is only 2 so he can't live there. Last hosp stay dispo to sister jerel apparently, will need CM involvement Pt was seen and examined in collaboration with Dr. Castillo, please see addendum A total of 125 was spent coordinating, documenting, and providing care for this patient excluding time spent in the performance of separately billed services. This included personally viewing all current laboratories and imaging studies, medication reconciliation, outpatient chart review, and discussion with specialists. History of Present Illness Chief Complaint: altered mental status. Primary Care Provider: James Maria, This is a 77-year-old male who has a significant past medical history of med ication noncompliance, T2DM, PAF anticoagulated on Eliquis, chronic HFpEF, moderate to severe aortic stenosis, HTN, HLD and BPH who presents to ED via EMS secondary to altered mental status. Patient's is at bedside and helps elicit history although still very limited. Patient was last seen by her on 07/20 when she took him to urology appointment due to concern for possible Yee catheter not functioning. At that time his Yee catheter was functioning appropriately but he underwent Yee exchange at that time. She then dropped him back off to his, "tent." Patient and do not live together. lives with their daughter in an apartment and due to occupancy limit of 2 he is unable to stay there. She states that he currently lives in [place] on a piece of their property in a tent. There is a house there but does not have electricity or running water so therefore he stays in a tent. She is unsure if he has been compliant with his medications. Nobody heard from him since Thursday when his son went to check on him today he was confused and altered. EMS was then summoned. Of significance patient was recently hospitalized on 04/29-05/05. At that time he presented with weakness and blood sugars in the 400s along with urinary retention. Yee catheter was placed at that time. He was seen and evaluated by urology and found to have chronic bladder outlet obstruction and recommended continue Yee catheter placement and started on Flomax. He was also empirically treated for UTI although this cultures came back negative. His hospital course at that time was complicated with A-fib with RVR. He was also noted to have anaplasmosis and started on doxycycline. History is unable to be obtained from patient secondary to underlying confusion as well as a severe he aring impairment. Upon arrival EMS noted patient to have elevated heart rates into the 170s 180s. Adenosine was tried x2 without improvement. He received a 500 bolus of IV fluid with mild improvement in heart rates into the 150s. When patient arrived at ED he received further IV fluid as well as Lopressor 5 mg IV x1 which resulted in a spontaneous conversion back to normal sinus rhythm with normotension. He was found to have severe hyperglycemia, HHS, hyponatremia, concern for sepsis, elevated troponin with significant EKG changes, CESAR, lactic acidosis. In ED received 2 L of IV fluid, empirically was treated with IV cefepime and vancomycin and initiated on insulin bolus and drip. Allergies Allergy/AdvReac Type Severity Reaction Status Date / Time lisinopril Allergy Severe Swelling Verified 05/26/23 14:21 of Face/Lips/Tongue Home Medications Medication Instructions Recorded Confirmed Type atorvastatin 40 mg tablet 40 mg PO QAM 11/08/21 07/24/23 History apixaban 5 mg tablet (Eliquis) 5 mg PO BID #60 tabs 11/11/21 07/24/23 Rx insulin aspart U-100 100 unit/mL 5 unit subcut TIDM 05/16/22 07/24/23 History (3 mL) subcutaneous pen (Novolog FlexPen U-100 Insulin aspart) metformin 500 mg tablet,extended 1,000 mg PO QAM 05/16/22 07/24/23 History release 24 hr metoprolol tartrate 25 mg tablet 25 mg PO BID 05/16/22 07/24/23 History furosemide 40 mg tablet 40 mg PO QPM 11/20/22 07/24/23 History furosemide 40 mg tablet 80 mg PO QAM 11/20/22 07/24/23 History finasteride 5 mg tablet 5 mg PO DAILY #30 tabs 05/20/23 07/24/23 Rx tamsulosin 0.4 mg capsule 0.4 mg PO DAILY #30 caps 05/20/23 07/24/23 Rx insulin degludec 100 20 unit subcut HS 06/17/23 07/24/23 History unit-liraglutide 3.6 mg/mL(3 mL) subcutaneous pen (Xultophy 100/3.6) Past Med/Surg History Medical History Abnormal urinalysis Acute hyperglycemia Acute hypokalemia Atrial fibrillation with rapid ventricular response Bilateral edema of lower extremity BPH (benign prostatic hyperplasia) Cellulitis D-dimer, elevated Diabetes mellitus, type II DM type 2 (diabetes mellitus, type 2) DVT prophylaxis Dyslipidemia Dyspnea Edema of both legs Elevated brain natriuretic peptide (BNP) level Hearing loss Heart failure with preserved ejection fraction HTN (hypertension) Hypertension Hypokalemia Leukocytosis Moderate aortic stenosis Paroxysmal atrial fibrillation Paroxysmal atrial fibrillation Premature atrial complexes Puncture wound of foot, right Right foot infection Volume overload Surgical History H/O shoulder surgery History of ear surgery age 19, mastoid S/P foot surgery, left Family History Brother Diabetes Social History Smoking Status: Former smoker Tobacco Type: Cigarettes Second Hand Exposure: No; Do You Dip or Chew Tobacco: No; Hx Alcohol Use: No Hx Substance Use: No Preferred Language: Montenegrin Communication Ability: Impaired Communication Ability Comment: pt very hard of hearing Traveler Changer Required: No Beliefs That Will Affect Care: None marital status: Current Living Situation: Alone Current Living Situation Comment: lives in a building that has no running water How many Children do You have: 3 Feels Safe at Home: Yes Assistive Devices: Cane Review of Systems Review of Systems: All systems reviewed & are unremarkable except as noted in HPI & below Physical Exam Physical Exam: please refer to Dr. Castillo addendum for physical exam findings Results & Data Results & Data Vital Signs (Past 12 Hours) Vital Signs Temp Pulse Resp BP Pulse Ox O2 Del Method O2 Flow Rate 07/24/23 14:45 138 H 22 97 07/24/23 14:43 130 H 24 96 07/24/23 14:43 97/70 L 07/24/23 14:40 145 H 25 H 97 07/24/23 14:35 134 H 25 H 99 07/24/23 14:30 130 H 24 96 07/24/23 14:25 140 H 25 H 87 L 07/24/23 14:20 157 H 19 83 L 07/24/23 14:15 153 H 27 H 89 L 07/24/23 14:10 154 H 27 H 90 07/24/23 14:10 109/74 07/24/23 14:06 94/65 L 07/24/23 14:06 154 H 28 H 91 07/24/23 14:05 162 H 26 H 92 07/24/23 14:01 154 H 26 H 07/24/23 13:51 167 H 28 H 93 Nasal Cannula 2 07/24/23 13:40 166 H 26 H 80/65 L 90 Nasal Cannula 2 07/24/23 13:32 150 H 25 H 135/60 93 Nasal Cannula 2 07/24/23 13:30 173 H 27 H 135/60 94 Nasal Cannula 2 07/24/23 13:20 160 H 26 H 110/78 85 L Nasal Cannula 2 07/24/23 13:15 159 H 23 07/24/23 13:10 169 H 23 110/75 07/24/23 13:05 171 H 23 07/24/23 13:00 159 H 28 H 07/24/23 13:18 36.7 C 162 H 22 110/78 87 L Room Air 07/24/23 12:56 172 H Diagnostic Findings Chest X-Ray 07/24/23 13:18 XR chest 1V portable HISTORY: Sepsis COMPARISON: Chest 04/29/2023. FINDINGS: No pneumothorax. No pleural effusions. The cardiac silhouette remains mildly enlarged. No evidence for pulmonary edema. No new focal lung consolidations to suggest a pneumonia. No acute fractures identified. IMPRESSION: No significant change compared to the prior study. No acute process. ACT 112: Negative or not required by law. Electronically signed by: Del Blackburn M.D. 07/24/2023 1:43 PM Medications Administered Medication List Vancomycin HCl 2,000 mg/ (Sodium Chloride) 540 mls @ 200 mls/hr IV NOW ONE Stop: 07/24/23 17:55 Last Admin: 07/24/23 15:53 Dose: 200 mls/hr Documented By: ROMULO Insulin Human Regular 250 (units/ Sodium Chloride) 250 mls @ 7.6 mls/hr IV .Q24H DARIN; Protocol Stop: 08/23/23 15:29 Last Admin: 07/24/23 15:53 Dose: 7.6 units/hr, 7.6 mls/hr Documented By: ROMULO Co-signed By: CHANEL Potassium Chloride/Sodium Chloride (1/2 Nss + 20meq Kcl 1000ml) 20 meq in 1,000 mls @ 250 mls/hr IV .Q4H DARIN; Protocol Stop: 08/23/23 15:29 Last Admin: 07/24/23 15:53 Dose: 250 mls/hr Documented By: ROMULO Discontinued Medications Sodium Chloride (Nss) 2,000 mls @ 999 mls/hr IV .Q2H1M ONE Stop: 07/24/23 15:18 Last Admin: 07/24/23 13:10 Dose: 999 mls/hr Documented By: CHANEL Cefepime HCl (Maxipime) 2,000 mg in 20 mls @ 5 mls/min IV NOW STA; Protocol Stop: 07/24/23 15:01 Last Admin: 07/24/23 15:54 Dose: 5 mls/min Documented By: ROMULO Insulin Human Regular (Novolin-R Bolus From Bag) 7.6 units IV ONE ONE Stop: 07/24/23 15:46 Last Admin: 07/24/23 15:54 Dose: 7.6 units Documented By: ROMULO Co-signed By: CHANEL Metoprolol Tartrate (Metoprolol Tartrate 1 Mg/Ml Vial) 5 mg IV NOW STA Stop: 07/24/23 13:21 Last Admin: 07/24/23 14:17 Dose: 5 mg Documented By: CHANEL Metoprolol Tartrate (Metoprolol Tartrate 1 Mg/Ml Vial) 5 mg IV NOW STA Stop: 07/24/23 13:51 Last Admin: 07/24/23 16:04 Dose: Not Given Documented By: CHANEL ECG Additional Comments: EKG 73 NSR PAC, RBBB, LAFB, St t wave changes diffusely COVID-19 Results Results COVID-19 Adm Lab Results: RBC 5.12 M/uL (4.70-6.10) 07/24/23 WBC 16.65 K/ul (4.8-10.8) H 07/24/23 Hgb 14.7 g/dl (14.0-18.0) 07/24/23 Hct 44.8 % (42.0-52.0) 07/24/23 Plt Count 218 K/uL (130-400) 07/24/23 Neutrophils (%) (Auto) 87.3 % 07/24/23 Lymphocytes (%) (Auto) 5.3 % 07/24/23 Monocytes # (Auto) 1.08 K/uL (0.11-0.59) H 07/24/23 Eosinophils # (Auto) 0.07 K/uL (0.00-0.50) 07/24/23 Immature Granulocyte % (Auto) 0.3 % 07/24/23 Neutrophils # (Auto) 14.52 K/uL (1.40-6.50) H 07/24/23 Lymphocytes # (Auto) 0.89 K/uL (1.20-3.40) L 07/24/23 Monocytes # (Auto) 1.08 K/uL (0.11-0.59) H 07/24/23 Eosinophils # (Auto) 0.07 K/uL (0.00-0.50) 07/24/23 Basophils # (Auto) 0.04 K/uL (0.00-0.20) 07/24/23 Immature Granulocyte # (Auto) 0.05 K/uL (0.01-0.20) 3 Na 140 mmol/L (136-145) 07/24/23 K 3.6 mmol/L (3.5-5.1) 07/24/23 Cl 107 mmol/L (98-107) 07/24/23 CO2 21 mmol/L (21-32) 07/24/23 Anion Gap 12 (3-11) H 07/24/23 BUN 122 mg/dl (6-23) H 07/24/23 Creatinine 3.09 mg/dl (0.6-1.4) H 07/24/23 BUN/Creatinine Ratio 39.5 (10-20) H 07/24/23 Glucose Level 694 mg/dl (70-99(Fasting)) H* 07/24/23 Ca 8.0 mg/dl (8.6-10.3) L 07/24/23 Phosphorus Level 5.8 mg/dl (2.5-4.9) H 07/24/23 Total Bilirubin 0.5 mg/dl (0.2-1.0) 07/24/23 Direct Bilirubin 0.1 mg/dl (0-0.2) 07/24/23 AST/SGOT 11 U/L (13-39) L 07/24/23 ALT/SGPT 10 U/L (7-52) 07/24/23 Alkaline Phosphatase 78 U/L (34-104) 07/24/23 Total Protein 7.4 gm/dl (6.0-8.3) 07/24/23 Albumin 3.1 gm/dl (3.4-5.0) L 07/24/23 Total CK 116 U/L (30-223) 07/24/23 Procalcitonin 1.65 ng/ml (0-0.5) H 07/24/23 INR 1.2 (0.9-1.1) H 07/24/23 COVID-19 PCR NEGATIVE (Negative) 07/24/23 Influenza Virus Type A (PCR) Negative (Neg) 07/24/23 Influenza Virus Type B (PCR) Negative (Neg) 07/24/23 ABG pH 7.38 (7.35-7.45) 07/24/23 ABG pCO2 38 mmHg (35-46) 07/24/23 ABG pO2 96 mmHg (80-95) H 07/24/23 ABG HCO3 23 mmol/L (19-24) 07/24/23 ABG O2 Saturation 98.5 % (90-95) H 07/24/23 ABG Base Excess -2.3 mEq/L (-9-1.8) 07/24/23 Chest X-Ray 07/24/23 Code Status & VTE Plan Code Status FULL CODE - discussed with at bedside who feels this is what he would want will need to be re evaluated once pt more medical stable VTE Prophylaxis Plan VTE Prophylaxis will be ordered: Yes Supervising Physician Co-Signing Physician Notes I have seen and examined the patient and have discussed the case with the provider above. I agree with the assessment and plan as stated. 77-year-old patient with a history of atrial fibrillation on Eliquis, diabetes and homelessness presents with confusion and weakness. He lives on someone's property in a tent and has variable compliance with medications including insulin. He arrives in rapid ventricular response improved after 2 doses of adenosine in route and 1 dose of Lopressor 5 mg IV. He spontaneously converted to sinus rhythm after fluid resuscitation and initial treatment in the ER. He was hypotensive with blood pressure responding to fluid boluses and now in the 120 systolic. He appears clinically septic with uncertain source. In addition to IV fluid resuscitation he was started on vancomycin and cefepime for broad- spectrum antibiotic coverage. His is present at the bedside but does not live with him and has not seen him since Thursday. On Thursday she states that he was walking to his urology appointment and was mentating clearly. This was 5 days ago. Work-up includes EKG with new T wave inversions and ST depressions in the inferior lateral leads. Troponin is 38. He is found to have acute renal failure with a creatinine of 3.28 and a baseline creatinine of 0.92. Glucose is 768 and he is in diabetic ketoacidosis. Anion gap is elevated. Serum osmolality is 385 with calculated serum osmolality of 371 giving an awesome gap of 14. An ethyl alcohol level, acetaminophen level and salicylate level are pending. pH is 7.29. Lactate is elevated and this with ketosis likely represents the cause of his acidosis. Additional ingestion cannot be ruled out at this time however. On exam he is hard of hearing and just has general weakness. He is nonverbal and does not follow instructions. Mucous membranes are dry, pupils are round and equal bilaterally. Skin is warm and dry. Cardiac exam reveals S1-S2 without murmur with a regular rate and rhythm. Lungs are clear to auscultation throughout. Abdomen is soft there is tenderness in the right upper quadrant. Extremities are warm and well-perfused. He is confused limiting and neuromuscular exam but there does not appear to be any overt focal deficit outside of the confusion. Labs, imaging, EKG, medications reviewed. Medications reconciled using outpatient records. Discussed case with ICU doctor for transfer to ICU given multiple systems affected and a septic patient. Stat echo requested per ICU physician with new T wave inversions and ST depressions. Doubt ACS given lower highly sensitive troponin in a critically ill patient with ongoing tachycardia. 1. Severe sepsis 2. Rapid atrial fibrillation, h/o PAF on apixaban 3. Acute renal failure 4. Demand ischemia 5. Homelessness 6. Acute metabolic encephalopathy 7. Anion gap metabolic acidosis 8. Chronic HFpEF 9. Moderate aortic stenosis Critically ill with sepsis 2/2 unclear source, DKA with presumed noncompliance with insulin, acute renal failure likely a result of sepsis/ongoing illness and lack of access to proper food and water given homelessness, and acute metabolic encephalopathy. Cont sepsis resuscitation efforts. He appears more resuscitated and has converted to sinus rhythm. Agree with admission to ICU with multiple systems affected. Cont IVF but cautious to avoid overloading given h/o aortic stenosis. Tick borne illness possible given h/o living in a tent outdoors. Rickettsial panel pending. Echo ordered to rule out ACS with elevated troponin, confusion and EKG changes. Acidosis and renal failure will likely correct with IVF. DKA with IVF and insulin which was started in the ER. reports she thinks he is a full code and that she would be his medical decision maker. The Office of Aging has been contacted given his current living conditions which are inadequate for his age, medical conditions, and frailty level. He is also hard of hearing which may contribute to delirium and insecurity. Will work to communicate our plans clearly as he starts to improve clinically. NPO for now. DO Jonathan
[2023-07-24 16:53] LABS: Potassium 3.6 mmol/L (3.5-5.1)
--- NOTE | 2023-07-24 16:53 | Communication Note ---
Date of Service: July 24, 2023 HOSPITALIST ATTENDING ADDENDUM: 77-year-old patient with a history of atrial fibrillation on Eliquis, diabetes and homelessness presents with confusion and weakness. He lives on someone's property in a tent and has variable compliance with medications including insulin. He arrives in rapid ventricular response improved after 2 doses of adenosine in route and 1 dose of Lopressor 5 mg IV. He spontaneously converted to sinus rhythm after fluid resuscitation and initial treatment in the ER. He was hypotensive with blood pressure responding to fluid boluses and now in the 120 systolic. He appears clinically septic with uncertain source. In addition to IV fluid resuscitation he was started on vancomycin and cefepime for broad- spectrum antibiotic coverage. His is present at the bedside but does not live with him and has not seen him since Thursday. On Thursday she states that he was walking to his urology appointment and was mentating clearly. This was 5 days ago. Work-up includes EKG with new T wave inversions and ST depressions in the inferior lateral leads. Troponin is 38. He is found to have acute renal failure with a creatinine of 3.28 and a baseline creatinine of 0.92. Glucose is 768 and he is in diabetic ketoacidosis. Anion gap is elevated. Serum osmolality is 385 with calculated serum osmolality of 371 giving an awesome gap of 14. An ethyl alcohol level, acetaminophen level and salicylate level are pending. pH is 7.29. Lactate is elevated and this with ketosis likely represents the cause of his acidosis. Additional ingestion cannot be ruled out at this time however. On exam he is hard of hearing and just has general weakness. He is nonverbal and does not follow instructions. Mucous membranes are dry, pupils are round and equal bilaterally. Skin is warm and dry. Cardiac exam reveals S1-S2 without murmur with a regular rate and rhythm. Lungs are clear to auscultation throughout. Abdomen is soft there is tenderness in the right upper quadrant. Extremities are warm and well-perfused. He is confused limiting and neuromuscular exam but there does not appear to be any overt focal deficit outside of the confusion. Labs, imaging, EKG, medications reviewed. Medications reconciled using outpatient records. Discussed case with ICU doctor for transfer to ICU given multiple systems affected and a septic patient. Stat echo requested per ICU physician with new T wave inversions and ST depressions. Doubt ACS given lower highly sensitive troponin in a critically ill patient with ongoing tachycardia. 1. Severe sepsis 2. Rapid atrial fibrillation, h/o PAF on apixaban 3. Acute renal failure 4. Demand ischemia 5. Homelessness 6. Acute metabolic encephalopathy 7. Anion gap metabolic acidosis 8. Chronic HFpEF 9. Moderate aortic stenosis Critically ill with sepsis 2/2 unclear source, DKA with presumed noncompliance with insulin, acute renal failure likely a result of sepsis/ongoing illness and lack of access to proper food and water given homelessness, and acute metabolic encephalopathy. Cont sepsis resuscitation efforts. He appears more resuscitated and has converted to sinus rhythm. Agree with admission to ICU with multiple systems affected. Cont IVF but cautious to avoid overloading given h/o aortic stenosis. Tick borne illness possible given h/o living in a te nt outdoors. Rickettsial panel pending. Echo ordered to rule out ACS with elevated troponin, confusion and EKG changes. Acidosis and renal failure will likely correct with IVF. DKA with IVF and insulin which was started in the ER. reports she thinks he is a full code and that she would be his medical decision maker. The Office of Aging has been contacted given his current living conditions which are inadequate for his age, medical conditions, and frailty level. He is also hard of hearing which may contribute to delirium and insecurity. Will work to communicate our plans clearly as he starts to improve clinically. NPO for now. DO Jonathan
[2023-07-24 17:04] LABS: Acetaminophen < 3 ug/ml (10-30); Salicylate < 3.0 mg/dl (3.0-30)
--- NOTE | 2023-07-24 17:11 | Electrocardiogram Report ---
Test Reason : Blood Pressure : / mmHG Vent. Rate : 073 BPM Atrial Rate : 073 BPM P-R Int : 140 ms QRS Dur : 120 ms QT Int : 468 ms P-R-T Axes : 063 -59 237 degrees QTc Int : 515 ms Sinus rhythm with Premature atrial complexes Right bundle branch block Left anterior fascicular block Left ventricular hypertrophy T-wave inversion in Anterior leads , consider ischemia Abnormal ECG When compared with ECG of 05-MAY-2023 06:03, Premature atrial complexes are now Present T wave inversion now evident in Anterior leads Confirmed by Sujit Perez ([id number]) on 07/24/2023 5:11:25 PM Referred By: REFERRED SELF Confirmed By:Sujit Perez
[2023-07-24 17:23] LABS: BUN Creatinine Ratio 39.5 (10-20); Creatinine Clr Calc Pharmacy 18.1 ml/min; Est GFR (African American) 21.4 ml/min; Est GFR (Non-African American) 18.5 ml/min
[2023-07-24] MEDS ORDERED: PENDING D5 1/2NS+20mEq KCL IVF SCH ×2 (17:30→18:15)
[2023-07-24 17:35] LABS: Troponin I High Sensitivity 102.7 pg/ml (0-20)
[2023-07-24 17:39] LABS: Thyroid Stimulating Hormone 1.716 uIu/ml (0.300-4.500)
[2023-07-24 17:44] LABS: Base Excess ABG -2.3 mEq/L (-9-1.8); HCO3 ABG 23 mmol/L (19-24); Oxygen Saturation ABG 98.5 % (90-95); PCO2 ABG 38 mmHg (35-46); PO2 ABG 96 mmHg (80-95); pH ABG 7.38 (7.35-7.45)
[2023-07-24 17:51] LABS: Allen Test Pos (Pos)
[2023-07-24] MEDS ORDERED: PANTOprazole 40 MG TAB PO STA (18:19)
[2023-07-24 18:25] LABS: Chloride Random Urine < 15 mmol/L; Potassium Random Urine 24.3 mmol/L; Sodium Random Urine 14 mmol/L
[2023-07-24 18:25] LABS: Influenza A virus by PCR Negative (Neg); Influenza B virus by PCR Negative (Neg); RSV by PCR Negative (Neg); SARS CoV2 RNA(COVID-19) Ceph NEGATIVE (Negative)
[2023-07-24 18:33] LABS: Creatinine Urine Random 38.5 mg/dl
[2023-07-24] MEDS ORDERED: INSULIN ASPART PER UNIT CHARGE SC SCH (19:42)
[2023-07-24] MEDS ORDERED: PHARMACY GLYCEMIC MGMT CONSULT PRN (19:42)
[2023-07-24] MEDS ORDERED: Heparin IV Adult Wt-Based Standard *NO* Bolus Protocol IV SCH (19:42)
--- NOTE | 2023-07-24 19:49 | CT Scan Report ---
Exam(s): CT HEAD Without Contrast EXAM: CT Head Without Intravenous Contrast CLINICAL HISTORY: Reason for exam: ams. TECHNIQUE: Axial computed tomography images of the head/brain without intravenous contrast. CTDI is 37.78 mGy and DLP is 546.36 mGy-cm. Automated exposure control was utilized for the study. A dose lowering technique was utilized adhering to the principles of ALARA. COMPARISON: No relevant prior studies available. FINDINGS: No acute intracranial hemorrhage. No midline shift or mass effect. The territorial franco-white matter differentiation is maintained throughout. Age-related cerebral volume loss. Periventricular and subcortical white matter hypoattenuation, consistent with chronic microangiopathy. The visualized orbits appear grossly unremarkable. The calvarium is intact. The visualized paranasal sinuses and mastoid air cells are grossly clear. IMPRESSION: No acute intracranial hemorrhage, midline shift, or mass effect. Electronically signed by: Shawn Trotter MD 07/24/23 19:48 PM
--- NOTE | 2023-07-24 19:50 | CT Scan Report ---
Exam(s): CT ABDOMEN + PELVIS Without Contrast EXAM: CT Abdomen and Pelvis Without Intravenous Contrast CLINICAL HISTORY: Reason for exam: sepsis, ?UTI. TECHNIQUE: Axial computed tomography images of the abdomen and pelvis without intravenous contrast. CTDI is 26.62 mGy and DLP is 1218.87 mGy-cm. Automated exposure control was utilized for the study. A dose lowering technique was utilized adhering to the principles of ALARA. COMPARISON: No relevant prior studies available. FINDINGS: Lung bases: Unremarkable. No mass. No consolidation. Mediastinum: Small hiatal hernia. ABDOMEN: Liver: Hepatic steatosis. Gallbladder and bile ducts: Sludge in the gallbladder. No calcified stones. No ductal dilation. Pancreas: Atrophy of the pancreas. No ductal dilation. Spleen: Unremarkable. No splenomegaly. Adrenals: Unremarkable. No mass. Kidneys and ureters: No hydronephrosis or nephrolithiasis. Mild fullness of the bilateral renal collecting systems. Stomach and bowel: Diverticulosis, without acute diverticulitis. No small bowel obstruction. No free intraperitoneal air . PELVIS: Appendix: No findings to suggest acute appendicitis. Bladder: Wall thickening of the urinary bladder with indwelling Hanna catheter. Correlate for UTI. No stones. Reproductive: Unremarkable as visualized. ABDOMEN and PELVIS: Intraperitoneal space: Unremarkable. No free air. No significant fluid collection. Bones/joints: Degenerative changes of the spine. No acute fracture. No dislocation. Soft tissues: Unremarkable. Vasculature: Atherosclerotic changes of the aorta. No abdominal aortic aneurysm. Lymph nodes: Unremarkable. No enlarged lymph nodes. IMPRESSION: 1. Wall thickening of the urinary bladder with indwelling Hanna catheter. Correlate for UTI. 2. Hepatic steatosis. 3. Sludge in the gallbladder. 4. No hydronephrosis or nephrolithiasis. Mild fullness of the bilateral renal collecting systems. 5. Diverticulosis, without acute diverticulitis. No small bowel obstruction. No free intraperitoneal air . Electronically signed by: Shawn Trotter MD 07/24/23 19:49 PM
[2023-07-24] MEDS: HEPARIN SODIUM/DEXTROSE 25,000 UNITS/500 ML BAG IV SCH (20:25)
[2023-07-24] MEDS: INSULIN ASPART PER UNIT CHARGE SC SCH ×2 (21:07→21:09)
[2023-07-24] MEDS: D5W AND 1/2NSS + 20MEQ KCL 20 MEQ/1,000 ML BAG IV SCH (21:07)
[2023-07-24] MEDS: ICU Protocol for HYPERglycemia SCH ×2 (21:08→21:09)
--- NOTE | 2023-07-24 21:43 | Pharmacy Report ---
Pharmacy PK ABX Note - Date of Service July 24, 2023 - Assessment and Plan Assessment 77 year old M receiving cefepime/vancomycin for treatment of UTI/AMS. Pertinent microbiologic data includes: blood cultures and urine culture pending. Serum creatinine (3.28mg/dL) significantly elevated from baseline (~1.0mg/dL) Day # 1 of antimicrobial therapy. Plan Vancomycin * Loading dose: 2000 mg IV x 1 * Will dose further vancomycin per levels due to CESAR * Random level ordered for 07/24/23 with AM labs Cefepime * 2gm x1 given in ED * Target dose 2gm Q8H * Dose adjusted to 1gm Q12H based on CrCl ~17 Pharmacy will continue to follow and will adjust dose/frequency as necessary. Thank you.
[2023-07-24 21:58] LABS: BUN Creatinine Ratio 39.7 (10-20); Calcium 8.2 mg/dl (8.6-10.3); Creatinine Clr Calc Pharmacy 20.5 ml/min; Est GFR (African American) 22.9 ml/min; Est GFR (Non-African American) 19.8 ml/min; Magnesium 2.7 mg/dl (1.7-2.4); Phosphorus 3.4 mg/dl (2.5-4.9); Potassium 3.9 mmol/L (3.5-5.1); Troponin I High Sensitivity 163.1 pg/ml (0-20)
[2023-07-24] MEDS ORDERED: POTASSIUM CHLORIDE CRTAB 20 MEQ TABCR PO STA (22:11)
[2023-07-25] MEDS: D5W AND 1/2NSS + 20MEQ KCL 20 MEQ/1,000 ML BAG IV SCH ×3 (00:25→10:20)
[2023-07-25 01:12] LABS: BUN Creatinine Ratio 38.6 (10-20); Calcium 7.9 mg/dl (8.6-10.3); Creatinine Clr Calc Pharmacy 21.4 ml/min; Est GFR (African American) 24.1 ml/min; Est GFR (Non-African American) 20.8 ml/min; Magnesium 2.3 mg/dl (1.7-2.4); Phosphorus 2.5 mg/dl (2.5-4.9)
[2023-07-25 03:50] LABS: Partial Thromboplastin Ratio 1.2; Partial Thromboplastin Time 33.7 Seconds (21.0-31.0)
[2023-07-25] MEDS ORDERED: CEFEPIME 1,000 MG in SYRINGE 0 ML IV SCH (04:00)
[2023-07-25] MEDS ORDERED: HEPARIN SOD (PORCINE) 1000 UNIT/ML IV ONE (04:15)
[2023-07-25 05:20] LABS: A calco-baum cmplx NotReported Not Detected (NotDetected); Bact fragilis Not Reported Not Detected (NotDetected); C auris Not Reported Not Detected (NotDetected); CTX-M Resistant Gene Not Detected (NotDetected); Calbicans Not Reported Not Detected (NotDetected); Candida glabrata Not Reported Not Detected (NotDetected); Candida krusei Not Reported Not Detected (NotDetected); Cneoformans/gatti Not Reported Not Detected (NotDetected); Cparapsilosis Not Reported Not Detected (NotDetected); E cloacae compx Not Reported Not Detected (NotDetected); Efaecalis Not Reported Not Detected (NotDetected); Efaecium Not Reported Not Detected (NotDetected); Enterobacterales DETECTED (NotDetected); Enterobacterales Not Reported DETECTED (NotDetected); Escherichia coli Not Reported Not Detected (NotDetected); H influenzae Not Reported Not Detected (NotDetected); IMP Resistant Gene Not Detected (NotDetected); K aerogenes Not Reported Not Detected (NotDetected); KPC Resistant Gene Not Detected (NotDetected); Koxytoca Not Reported Not Detected (NotDetected); Kpneumoniae grp Not Reported Not Detected (NotDetected); Lmonocyt Not Reported Not Detected (NotDetected); N meningitidis Not Reported Not Detected (NotDetected); NDM Resistant Gene Not Detected (NotDetected); OXA 48 Like Resistant Gene Not Detected (NotDetected); P aeruginosa Not Reported Not Detected (NotDetected); Proteus spp Not Reported Not Detected (NotDetected); Salmonella spp Not Reported Not Detected (NotDetected); Smarcescens Not Reported DETECTED (NotDetected); Staph lugdunensis Not Reported Not Detected (NotDetected); Staph spp. Not Reported Not Detected (NotDetected); Staphaureus Not Reported Not Detected (NotDetected); Staphepi Not Reported Not Detected (NotDetected); Stenmaltophilia Not Reported Not Detected (NotDetected); Strep agal(GrpB) Not Reported Not Detected (NotDetected); Strep pneum Not Reported Not Detected (NotDetected); Strep pyog (GrpA) Not Reported Not Detected (NotDetected); Strep spp Not Reported Not Detected (NotDetected); VIM Resistant Gene Not Detected (NotDetected)
[2023-07-25 05:44] LABS: Calcium 7.7 mg/dl (8.6-10.3); Creatinine Clr Calc Pharmacy 22.5 ml/min; Est GFR (African American) 25.7 ml/min; Est GFR (Non-African American) 22.1 ml/min; Magnesium 2.3 mg/dl (1.7-2.4); Phosphorus 2.1 mg/dl (2.5-4.9); Potassium 3.9 mmol/L (3.5-5.1)
[2023-07-25 06:10] LABS: Serratia marcescens DETECTED (NotDetected)
--- NOTE | 2023-07-25 07:03 | Electrocardiogram Report ---
Test Reason : Blood Pressure : / mmHG Vent. Rate : 166 BPM Atrial Rate : 000 BPM P-R Int : 000 ms QRS Dur : 114 ms QT Int : 302 ms P-R-T Axes : 000 -57 150 degrees QTc Int : 501 ms Atrial fibrillation with rapid ventricular response Incomplete right bundle branch block Left anterior fascicular block Left ventricular hypertrophy Marked ST abnormality, possible lateral subendocardial injury Abnormal ECG When compared with ECG of 05-MAY-2023 06:03, Significant changes have occurred Confirmed by Arron Jennings ([id number]) on 07/25/2023 7:02:48 AM Referred By: REFERRED SELF Confirmed By:Tito Jennings
[2023-07-25] MEDS: SODIUM CHLOR 0.45% + 20MEQ KCL 20 MEQ/1,000 ML BAG IV SCH (07:25)
--- NOTE | 2023-07-25 07:52 | Critical Care Progress Note ---
Date of Service July 25, 2023 Assessment & Plan (1) Elevated troponin: (2) Severe aortic stenosis: (3) Acute electrocardiogram changes: (4) Chronic heart failure with preserved ejection fraction (HFpEF): (5) CESAR (acute kidney injury): (6) Metabolic encephalopathy: (7) High anion gap metabolic acidosis: (8) Admitted to intensive care unit: (9) Paroxysmal atrial fibrillation: (10) Diabetes mellitus, type II: Plan Reason Critically Ill: 77-year-old male past medical history of HFpEF, paroxysmal A-fib on apixaban, diabetes, dyslipidemia presented to the hospital with A-fib with RVR and hypotension Chest x-ray 07/24/2023 personally reviewed: Portable film, fair inspiratory effort, bilateral costophrenic and cardiophrenic intersecting, increased cardiac silhouette, increased pulmonary vascular markings 2D echo 07/24/2023: EF 55%, RV normal in size and function, moderate concentric LVH, mild pulmonary hypertension, grade 2 diastolic dysfunction, moderate to severe aortic stenosis Neuro - [facility] ICU: Negative -- Altered mental status --> improved Patient is very hard to hear It is difficult to ascertain whether he is truly encephalopathic, [facility] might be playing a role With sign language he answers all the questions appropriately Follow-up TSH and free T4 Cardiac - -- Hypotension Patient responded to IV fluids Continue to monitor -- A-fib with RVR At the time of presentation Continue with metoprolol --Elevated troponin with T wave inversions Continue to trend Repeat 2D echo 07/25/2023 does not show any significant change compared to before EKG 07/24/2023: Sinus rhythm, left axis deviation with LVH, incomplete right bundle branch block, T wave inversions with ST depression in the lateral leads -- Moderate to severe aortic stenosis with pulmonary hypertension Type II 2D echo 07/24/2023: EF 55%, RV normal in size and function, moderate concentric LVH, mild pulmonary hypertension, grade 2 diastolic dysfunction, moderate to severe aortic stenosis Respiratory - -- Patchy opacities on the chest x-ray Not requiring any oxygen right now GI - -- No acute issues RENAL/LYTES - -- S/p high anion gap Delta-delta: Greater than 2, metabolic acidosis plus alkalosis High anion gap is likely from lactic acidosis, alkalosis could be from renal loss Monitor -- CESAR --> improving Monitor BUN/creatinine Avoid nephrotoxic medications Strict ins and outs - -- BPH On finasteride and tamsulosin at home Currently on home ENDO - -- HHS Continue with insulin drip until anion gap closes Decreasing blood glucose no more than 100 in an hour Replace potassium IV when potassium level between 3.3-5.3 BMP every 4 hours Continue with IV fluids HEME - -- Monitor H&H ID - -- Gram-negative bacteremia Urine negative for bacteria and leukocyte esterase Nasal MRSA negative Procalcitonin 1.65 On physical exam patient does have crackles Source unclear right now, pneumonia versus GI Continue with cefepime --Prophylaxis VTE: Heparin drip GI: Pantoprazole Lines: Peripheral Diet: N.p.o. Plan: In/out: +3.7 L, urine output 1974 Patient still into A-fib RVR. He was given 5 mg of metoprolol x2. Heart rate still in the 130s If it persistently stays that way then I will start him on diltiazem drip. If the blood pressure starts trending down then we will start him on amiodarone drip. He is already on apixaban at home. Continue with antibiotics for gram-negative bacteremia Potassium and phosphorus being replaced. Resume cardiac diet was the patient is bridged to subcu insulin We will try to see if we can bridge insulin drip to subcu insulin I have personally spent 38 minutes of critical care time in the direct management of this patient. This is a life/limb threatening event. This includes time spent evaluating patient, direct bedside care, chart review, placing orders, interpretation of diagnostic studies, discussion with consultants, patient, and family members, as well as other required patient management activities. This time is exclusive of all separately billable procedures, and teaching time and separate from and in addition to any other critical care service time. Admission and Anticipated Discharge Date Admission Date: July 24, 2023 Subjective Patient seen and examined at bedside. No acute distress, no adverse events overnight. At the time of examination patient went into A-fib with RVR heart rate in the 150s. Blood pressure was still in the 110s. He was not in any shortness of breath. He was saturating 97% on room air. He is very hard to hear. Denies any chest pain at that time No shortness of breath Denies any abdominal pain Review of Systems Review of Systems: All systems reviewed & are unremarkable except as noted in Subjective Physical Exam Physical Exam: Constitutional: No acute distress HEENT: EOMI, PERRLA Respiratory system: Decreased air entry bilaterally, no wheeze, no rhonchi, positive crackles bilaterally CVS: S1-S2 positive, 3 out of 6 systolic murmur appreciated best at the aorta Abdomen: Soft, nontender, nondistended, positive bowel sounds x4 Extremities: +2 pulses bilaterally radialis, no cyanosis, no edema, +1 pulses bilateral lower extremities, chronic venous stasis of the right lower extremity Neuro: Awake alert oriented to self and place Psych: Normal mood and affect G/U: Positive Hanna Skin: no rashes, warm and dry Lymphatic: no cervical or axillary lymphadenopathy Results & Data Results & Data Vital Signs (Past 12 Hours) Vital Signs Temp Pulse Resp BP BP Pulse Ox O2 Del Method 07/25/23 06:02 37.4 C 106 H 25 H 112/54 L 97 07/25/23 06:02 112/54 L 07/25/23 06:00 37.5 C 100 H 25 H 100 07/25/23 05:02 115/52 L 07/25/23 05:02 37.5 C 119 H 25 H 100 07/25/23 05:00 37.5 C 95 H 26 H 115/52 L 86 L 07/25/23 04:01 138/78 07/25/23 04:01 37.6 C H 102 H 22 100 07/25/23 04:00 37.6 C H 108 H 25 H 138/78 94 07/25/23 03:33 115/67 07/25/23 03:33 37.6 C H 102 H 21 95 07/25/23 03:00 37.8 C H 101 H 27 H 115/67 95 07/25/23 02:01 119/50 L 07/25/23 02:01 37.9 C H 94 H 24 96 07/25/23 02:00 37.9 C H 109 H 28 H 119/50 L 83 L 07/25/23 01:00 38.0 C H 98 H 29 H 114/61 93 07/25/23 01:00 114/61 07/25/23 00:00 38.0 C H 110 H 29 H 97/56 L 84 L 07/25/23 00:00 97/56 L 07/24/23 23:00 38.1 C H 102 H 30 H 97/56 L 85 L 07/24/23 22:01 38.1 C H 95 H 26 H 98 07/24/23 22:01 113/53 L 07/24/23 22:00 38.1 C H 115 H 28 H 113/53 L 79 L 07/24/23 21:47 38.0 C H 96 H 28 H 100 07/24/23 21:47 93/53 L 07/24/23 20:00 Room Air 07/24/23 21:00 37.9 C H 96 H 28 H 108/64 95 07/24/23 20:19 108/64 07/24/23 20:19 37.7 C H 89 25 H 07/24/23 20:00 37.6 C H 97 H 24 106/57 L 99 07/24/23 20:00 106/57 L 07/24/23 21:07 97 H 07/24/23 20:55 37.5 C 22 90/64 L 97 Room Air Laboratory Results 07/24/23 13:10 07/25/23 05:07 Coding Level of Care Code 63850 CRITICAL CARE 1ST 30-74M Diagnoses Elevated troponin R77.8 Severe aortic stenosis I35.0 Acute electrocardiogram changes R94.31 Chronic heart failure with preserved ejection fraction (HFpEF) I50.32 CESAR (acute kidney injury) N17.9 Metabolic encephalopathy G93.41 High anion gap metabolic acidosis E87.29 Admitted to intensive care unit Z78.9 Paroxysmal atrial fibrillation I48.0 Diabetes mellitus, type II E11.9 Time Spent (min) 38
[2023-07-25] MEDS ORDERED: POTASSIUM PHOS 3 MMOL/1 ML INFUSION IV STA (08:03)
[2023-07-25] MEDS ORDERED: LANTUS PER UNIT CHARGE SC ONE ×3 (08:30→21:00)
[2023-07-25] MEDS ORDERED: POTASSIUM PHOSPHATE 15 MMOL in SODIUM CHLORIDE 0.9% 250 ML IV ONE (08:30)
[2023-07-25] MEDS ORDERED: METOPROLOL TARTRATE 1 MG/ML VIAL IV ONE ×2 (08:30→08:38)
[2023-07-25] MEDS ORDERED: METOPROLOL TARTRATE 1 MG/ML VIAL IV PRN (08:42)
[2023-07-25] MEDS ORDERED: AMIODARONE IV BOLUS & DRIP IV STA (08:53)
[2023-07-25] MEDS ORDERED: 0.2 MICRON FILTER SET 1 EACH IV STA (08:53)
[2023-07-25] MEDS ORDERED: AMIODARONE / D5W 150 MG/100 ML BAG IV STA (08:53)
[2023-07-25] MEDS ORDERED: STAT IV Infusion **Titration per Protocol STA (08:53)
[2023-07-25] MEDS ORDERED: AMIODARONE / D5W 360 MG/200 ML BAG IV ONE (09:03)
[2023-07-25 09:36] LABS: Calcium 7.7 mg/dl (8.6-10.3); Magnesium 2.2 mg/dl (1.7-2.4); Potassium 4.2 mmol/L (3.5-5.1)
[2023-07-25] MEDS: ICU Protocol for HYPERglycemia SCH ×4 (09:38→20:17)
[2023-07-25] MEDS: INSULIN ASPART PER UNIT CHARGE SC SCH ×4 (09:40→20:18)
[2023-07-25 09:42] LABS: BUN Creatinine Ratio 37.6 (10-20); Creatinine Clr Calc Pharmacy 23.2 ml/min; Est GFR (African American) 26.6 ml/min; Phosphorus 2.3 mg/dl (2.5-4.9)
[2023-07-25] MEDS ORDERED: fentaNYL citrate PF 100 MCG/2 ML VIAL ONE (10:03)
[2023-07-25] MEDS ORDERED: MIDAZOLAM HCL 1 MG/ML 2ML VIAL ONE (10:07)
[2023-07-25 10:32] LABS: Troponin I High Sensitivity 176.8 pg/ml (0-20)
--- NOTE | 2023-07-25 10:41 | Nephrology Consultation ---
Date of Consultation July 25, 2023 Assessment & Plan (1) CESAR (acute kidney injury): Patient with acute kidney injury due to ischemic ATN in setting of gram-negative bacteremia. Creatinine on admission was 3.2 from a normal baseline of 0.9. Patient is being resuscitated with IV fluids and antibiotics. Creatinine downtrending to 2.5. Electrolytes are stable no indication for dialysis. -Avoid hypotension. Avoid contrast or other nephrotoxins. Continue IV fluids for resuscitation (2) DKA (diabetic ketoacidosis): Patient is on insulin drip per ICU and primary team. (3) Bacteremia: Continue IV antibiotics renally dosed for current GFR. History of Present Illness Reason for Consultation: Acute renal failure Requesting Physician: Delano Qureshi MD Attending Physician: Delano Qureshi MD History of Present Illness This is 77-year-old male with history of type 2 diabetes on insulin, A-fib on Eliquis CHF, BPH follows with urology and fairly normal renal function at baseline who was admitted with altered mental status found to have DKA and acute kidney injury with creatinine of 3.28. Patient has been unwell for about 5 days. Patient is reportedly homeless and has medication noncompliance. His blood cultures are growing gram-negative bacilli. He is receiving IV antibiotics. He is getting IV fluids creatinine is improving to 2.6. This morning he went into A-fib with rapid ventricular response and did not respond to amiodarone. He has been cardioverted. Heart rate is now in the 80s. Blood pressure is improving. He has a Hanna catheter and making some urine. Allergies Allergy/AdvReac Type Severity Reaction Status Date / Time lisinopril Allergy Severe Swelling Verified 05/26/23 14:21 of Face/Lips/Tongue Home Medications Medication Instructions Recorded Confirmed Type atorvastatin 40 mg tablet 40 mg PO QAM 11/08/21 07/24/23 History apixaban 5 mg tablet (Eliquis) 5 mg PO BID #60 tabs 11/11/21 07/24/23 Rx insulin aspart U-100 100 unit/mL 5 unit subcut TIDM 05/16/22 07/24/23 History (3 mL) subcutaneous pen (Novolog FlexPen U-100 Insulin aspart) metformin 500 mg tablet,extended 1,000 mg PO QAM 05/16/22 07/24/23 History release 24 hr metoprolol tartrate 25 mg tablet 25 mg PO BID 05/16/22 07/24/23 History furosemide 40 mg tablet 40 mg PO QPM 11/20/22 07/24/23 History furosemide 40 mg tablet 80 mg PO QAM 11/20/22 07/24/23 History finasteride 5 mg tablet 5 mg PO DAILY #30 tabs 05/20/23 07/24/23 Rx tamsulosin 0.4 mg capsule 0.4 mg PO DAILY #30 caps 05/20/23 07/24/23 Rx insulin degludec 100 20 unit subcut HS 06/17/23 07/24/23 History unit-liraglutide 3.6 mg/mL(3 mL) subcutaneous pen (Colbyltophy 100/3.6) Patient History Medical History Abnormal urinalysis Acute hyperglycemia Acute hypokalemia Atrial fibrillation with rapid ventricular response Bilateral edema of lower extremity BPH (benign prostatic hyperplasia) Cellulitis D-dimer, elevated Diabetes mellitus, type II DM type 2 (diabetes mellitus, type 2) DVT prophylaxis Dyslipidemia Dyspnea Edema of both legs Elevated brain natriuretic peptide (BNP) level Hearing loss Heart failure with preserved ejection fraction HTN (hypertension) Hypertension Hypokalemia Leukocytosis Moderate aortic stenosis Paroxysmal atrial fibrillation Paroxysmal atrial fibrillation Premature atrial complexes Puncture wound of foot, right Right foot infection Volume overload Surgical History H/O shoulder surgery History of ear surgery age 19, mastoid S/P foot surgery, left Family History Brother Diabetes Social History Smoking Status: Former smoker Tobacco Type: Cigarettes Second Hand Exposure: No; Do You Dip or Chew Tobacco: No; Hx Alcohol Use: No Hx Substance Use: No Preferred Language: Upper Sorbian Communication Ability: GRINDSTONE Communication Ability Comment: pt very hard of hearing Engine Tester Required: No Beliefs That Will Affect Care: None marital status: Current Living Situation: Alone Current Living Situation Comment: lives in a building that has no running water How many Children do You have: 3 Feels Safe at Home: Hesitant to Answer Assistive Devices: Cane Review of Systems Review of Systems: All other systems were reviewed and negative except as noted in HPI Physical Exam Physical Exam: General exam: Appears comfortable, no acute distress HEENT: Pupils are equal and reactive to light Neck: No JVD, neck is supple trachea is midline Respiratory system: Clear breath sounds bilaterally. Gastrointestinal: Abdomen is soft, non distended, non tender, bowel sounds are present CVS: Regular rate and rhythm. No murmurs, rubs or gallops Musculoskeletal: No joint or muscle tenderness Extremities: Non tender, 1+ edema, peripheral pulses are present Neuro: Oriented, no tremors, no focal neurological deficits Skin: No rashes Results & Data Vital Signs (Past 12 Hours) Vital Signs Temp Pulse Resp BP Pulse Ox 07/25/23 09:40 160 H 114/61 07/25/23 09:40 155 H 115/75 07/25/23 08:55 140 H 109/61 07/25/23 08:54 150 H 117/81 07/25/23 06:02 37.4 C 106 H 25 H 112/54 L 97 07/25/23 06:02 112/54 L 07/25/23 06:00 37.5 C 100 H 25 H 100 07/25/23 05:02 115/52 L 07/25/23 05:02 37.5 C 119 H 25 H 100 07/25/23 05:00 37.5 C 95 H 26 H 115/52 L 86 L 07/25/23 04:01 138/78 07/25/23 04:01 37.6 C H 102 H 22 100 07/25/23 04:00 37.6 C H 108 H 25 H 138/78 94 07/25/23 03:33 115/67 07/25/23 03:33 37.6 C H 102 H 21 95 07/25/23 03:00 37.8 C H 101 H 27 H 115/67 95 07/25/23 02:01 119/50 L 07/25/23 02:01 37.9 C H 94 H 24 96 07/25/23 02:00 37.9 C H 109 H 28 H 119/50 L 83 L 07/25/23 01:00 38.0 C H 98 H 29 H 114/61 93 07/25/23 01:00 114/61 07/25/23 00:00 38.0 C H 110 H 29 H 97/56 L 84 L 07/25/23 00:00 97/56 L 07/24/23 23:00 38.1 C H 102 H 30 H 97/56 L 85 L Laboratory Results 07/25/23 08:24 07/24/23 07/24/23 07/24/23 13:10 13:10 21:12 WBC 16.65 H RBC 5.12 MCV 87.5 MCH 28.7 MCHC 32.8 RDW Std Deviation 45.0 RDW Coeff of Scott 13.9 Plt Count 218 MPV 11.8 Phosphorus 5.8 H 3.4 D Albumin 3.1 L 07/25/23 07/25/23 07/25/23 00:41 05:07 08:24 WBC RBC MCV MCH MCHC RDW Std Deviation RDW Coeff of Scott Plt Count MPV Phosphorus 2.5 2.1 L 2.3 L Albumin
--- NOTE | 2023-07-25 11:03 | Procedure Note ---
Procedure Note Date of Service July 25, 2023 Note Cardioversion note: Patient heart rate was persistently in the 150s-160s even after giving 10 mg of Lopressor. He was even given amiodarone bolus 150 mg with no change. His systolic blood pressure started to trend down into the 90s. Plan was made to cardiovert the patient. Verbal consent was obtained from the patient. The patient was given 50 mcg of fentanyl and 2 mg of midazolam. Pads where placed for continuous monitoring. It was placed in synchronized mode. Defibrillator was charged to 150 J. 1 shock of synchronized cardioversion was given with return of rhythm and sinus. MAP postprocedure was 68 We will continue with amiodarone drip. Please note the above document was generated using voice recognition software. It may contain grammatical, syntax or spelling errors.Any formal questions or concerns about the content, text or information contained within the body of this dictation should be directly addressed to the provider for clarification. Coding CPT Codes Resuscitation - Resuscitation: 26980 Cardioversion electric, ext ([id number]) [facility] Procedure Codes (Charges) Resuscitation Resuscitation: 01095 Cardioversion electric, ext
[2023-07-25 11:19] LABS: Partial Thromboplastin Ratio 1.5
[2023-07-25 11:31] LABS: Partial Thromboplastin Time 41.9 Seconds (21.0-31.0)
[2023-07-25] MEDS: CEFEPIME 2,000 MG in SYRINGE 0 ML IV SCH ×2 (11:32→23:26)
[2023-07-25] MEDS: SODIUM CHLORIDE 0.45 % 1,000 ML IV SCH (11:32)
[2023-07-25] MEDS: POT PHOSPHATE MONOBASIC W/ SOD TAB PO SCH ×3 (12:43→20:24)
[2023-07-25] MEDS: METOPROLOL TARTRATE 25 MG TAB PO SCH ×2 (12:43→20:24)
[2023-07-25] MEDS: PANTOprazole 40 MG TAB PO SCH (12:44)
[2023-07-25 13:09] LABS: BUN Creatinine Ratio 38.8 (10-20); Calcium 7.7 mg/dl (8.6-10.3); Creatinine Clr Calc Pharmacy 23.2 ml/min; Est GFR (African American) 26.6 ml/min; Phosphorus 2.2 mg/dl (2.5-4.9); Potassium 4.6 mmol/L (3.5-5.1)
--- NOTE | 2023-07-25 14:03 | Pharmacy Report ---
Pharmacy Glycemic Short Note 2 - Date of Service July 25, 2023 - Glycemic Short BSG Results (Last 24 hours): 07/24/23 07/24/23 07/24/23 13:10 16:25 17:06 Glucose 768 H* 694 H* POC Glucose 594 H* 07/24/23 07/24/23 07/24/23 18:11 19:13 20:03 Glucose POC Glucose 489 H* 372 H* 299 H 07/24/23 07/24/23 07/24/23 21:07 21:12 21:58 Glucose 167 H POC Glucose 292 H 184 H 07/24/23 07/24/23 07/25/23 22:31 23:04 00:03 Glucose POC Glucose 183 H 150 H 256 H 07/25/23 07/25/23 07/25/23 00:41 01:02 01:57 Glucose 208 H POC Glucose 228 H 224 H 07/25/23 07/25/23 07/25/23 03:02 04:05 04:54 Glucose POC Glucose 201 H 200 H 182 H 07/25/23 07/25/23 07/25/23 05:07 06:02 06:59 Glucose 185 H POC Glucose 192 H 217 H 07/25/23 07/25/23 07/25/23 08:09 08:24 09:08 Glucose 257 H POC Glucose 241 H 245 H 07/25/23 11:08 Glucose POC Glucose 296 H OUTPATIENT ANTIDIABETIC REGIMEN: * Xultophy 20 units SC HS * Novolog 5 units SC AC * HbA1c: 10.7% (04/29/23) ASSESSMENT: * 77 yo M admitted on 07/24/23 secondary to HHS/CESAR/Afib/Resp failure. Pharmacy has been consulted to assist with inpatient glycemic management. Patient is a Type 2 diabetic as an outpatient. Please refer to outpatient regimen and most recent HbA1c above. * BSG was 768 mg/dL upon arrival yesterday. Started on an insulin drip. Received ~ 62 units via drip over a 12 hour period. * Will give a dose of basal insulin this morning in hopes of transitioning. Hazardous Waste Remover okay with transitioning today. * RN shut insulin drip off right after Lantus administration without overlap due to compatibility issues. Discontinued dextrose and potassium containing fluids. Hazardous Waste Remover would like 1/2 NS running at 75 mL/hr. * Remains NPO. No enteral nutrition yet. Cefepime for infection. Amiodarone and Heparin drips running. * Will start Novolog q4 for time being. PLAN FOR INPATIENT GLYCEMIC CONTROL: * Discontinued insulin drip and fluids associated with drip * Basal insulin * Lantus 15 units SC x 1 this AM * Lantus 0-10 units SC x 1 this PM per BSG (see eMAR for more details) * Bolus insulin * NovoLog per scale q4h while NPO * Goal Range: Low 110 mg/dL - High 140 mg/dL * Correction Factor: 20 mg/dL/unit * Nutritional / Prandial insulin per carb ratio of 1 unit per 7 grams CHO consumed
--- NOTE | 2023-07-25 14:19 | Hospitalist Progress Note ---
Date of Service July 25, 2023 Assessment & Plan (1) Admitted to intensive care unit: (2) DKA (diabetic ketoacidosis): (3) High anion gap metabolic acidosis: (4) Metabolic encephalopathy: (5) Paroxysmal atrial fibrillation: (6) CESAR (acute kidney injury): (7) Elevated troponin: (8) Acute electrocardiogram changes: (9) Chronic heart failure with preserved ejection fraction (HFpEF): (10) Severe aortic stenosis: Plan per admitting service notes with addendum: This is a critically ill 77-year-old male who has a significant past medical history of medication noncompliance, T2DM, PAF anticoagulated on Eliquis, chronic HFpEF, moderate to severe aortic stenosis, HTN, HLD and BPH who presents to ED via EMS secondary to altered mental status. DKA in the setting of Sepsis Metabolic encephalopathy 07/25 transitioned to Glargine + Novolog continue to monitor closely Sepsis secondary to Bacteremia, UTI Gram negative bacilli pt with initial tachycardia, leukocytosis, initial hypotension, lactic acidosis tachycardia improved after fluid administration/IV lopressor for afib blood/urine culture obtained empirically tx with vanco/cefepime in ED - will continue for now CT head/CT a/p pending lyme screen negative anaplasma, babesia ordered - pt recently dx with anaplasma and started on tx in May, uncertain if he completed tx 07/25 Urine and Blood culture: gram negative bacilli repeat blood culture ordered for tomorrow continue IV Cefepime Day 2 CESAR baseline cr 0.8 presents with BUN/CR 125/3.28 crea 2.5 continue IV fluids Elevated troponin Acute EKG changes obtain stat echo per cash register servicer, this was discussed with time checker cycle trops, likely in setting of critical illness EKG 73 NSR PAC, RBBB, LAFB, St t wave changes diffusely likely demand ischemia 07/25 trop 100, 200, 100s Atrial Fibrillation in RVR has history of a fib initially presented in RVR, converted after IVF and IV metoprolol uncertain if compliant with eliquis 07/25 required Cardioversion as HR still elevated, BP on the lower side converted to sinus rhythm continue Amiodarone drip continue Heparin drip Chronic HFpEF Severe Aortic Stenosis HTN HLD daily weights/strict intake and output recent echo: 04/2023 EF 50-55%, moderate concentric LVH, moderate to severe aortic stenosis, moderate mitral calcification, RV normal in size and function 07/25 appears euvolemic at this time BPH with GORDON yee in place [facility] urology follow pt, yee exchanged in ED urine appears negative, await culture continue yee DVT ppx: IV heparin, transiton to eliquis when able to tolerate po FULL CODE - as per discussion with , will need reevaluated once pt more alert PCP: Elvie Maria Disposititon: pending Admission and Anticipated Discharge Date Admission Date: July 24, 2023 Subjective ff up for DKA, etc seen resting in bed, sleeping, awakened to verbal stimuli but drifts back to sleep s/p Cardioversion for A fib, received Fentanyl prior to procedure no pain, shortness of breath Review of Systems Review of Systems: all noted and negative except for above Physical Exam Physical Exam: General-drowsy, not in distress, breathing in sentences with no effort or accessory muscle use Eyes- anicteric Neck- no JVD Lungs- clear breath sounds bilaterally, no rales/wheezes Heart- normal rate, regular rhythm; no murmurs Abdomen- normal bowel sounds, nondistended, soft, nontender Extremities- no pretibial edema, no calf tenderness Neuro- drowsy; no gross focal neurologic deficits Skin- warm & dry Results & Data Results & Data Vital Signs (Past 12 Hours) Vital Signs Temp Pulse Resp BP Pulse Ox O2 Del Method 07/25/23 13:42 Room Air 07/25/23 08:00 114 H 07/25/23 09:40 160 H 114/61 07/25/23 09:40 155 H 115/75 07/25/23 08:55 140 H 109/61 07/25/23 08:54 150 H 117/81 07/25/23 06:02 37.4 C 106 H 25 H 112/54 L 97 07/25/23 06:02 112/54 L 07/25/23 06:00 37.5 C 100 H 25 H 100 07/25/23 05:02 115/52 L 07/25/23 05:02 37.5 C 119 H 25 H 100 07/25/23 05:00 37.5 C 95 H 26 H 115/52 L 86 L 07/25/23 04:01 138/78 07/25/23 04:01 37.6 C H 102 H 22 100 07/25/23 04:00 37.6 C H 108 H 25 H 138/78 94 07/25/23 03:33 115/67 07/25/23 03:33 37.6 C H 102 H 21 95 07/25/23 03:00 37.8 C H 101 H 27 H 115/67 95 all noted and reviewed including below
[2023-07-25] MEDS: PANTOprazole 40 MG in SYRINGE 0 ML IV SCH (14:56)
[2023-07-25] MEDS ORDERED: AMIODARONE / D5W 360 MG/200 ML BAG IV SCH (15:00)
[2023-07-25] MEDS: HEPARIN SODIUM/DEXTROSE 25,000 UNITS/500 ML BAG IV SCH (15:02)
[2023-07-25] MEDS ORDERED: fentaNYL citrate PF 100 MCG/2 ML VIAL IV STA (16:36)
[2023-07-25] MEDS ORDERED: MIDAZOLAM HCL 1 MG/ML 2ML VIAL IV STA (16:37)
[2023-07-25] MEDS ORDERED: ICU ELECTROLYTE REPLACEMENT PROTOCOL SCH (18:00)
--- NOTE | 2023-07-25 22:08 | Communication Note ---
Date of Service: July 25, 2023 RN inquiring about CODE STATUS not currently addressed in patient's EMR. DNR as per prior directives as per discussion with patient's over the ph one.
[2023-07-25] MEDS ORDERED: ACETAMINOPHEN 325 MG TAB PO STA (23:07)
[2023-07-25] MEDS ORDERED: ACETAMINOPHEN 325 MG TAB PO PRN (23:07)
[2023-07-26 00:40] LABS: Potassium 3.9 mmol/L (3.5-5.1)
[2023-07-26] MEDS ORDERED: traMADol HCL 50 MG TABLET PO STA (01:28)
[2023-07-26] MEDS: SODIUM CHLORIDE 0.45 % 1,000 ML IV SCH ×2 (01:42→13:59)
[2023-07-26] MEDS: INSULIN ASPART PER UNIT CHARGE SC SCH ×5 (01:43→19:54)
[2023-07-26 06:30] LABS: Basophils # (auto) 0.03 K/uL (0.00-0.20); Basophils % (auto) 0.2 %; Eosinophils % (auto) 3.9 %; Hematocrit (blood only) 32.2 % (42.0-52.0); Hemoglobin 10.5 g/dl (14.0-18.0); Immature Granulocytes # (auto) 0.16 K/uL (0.01-0.20); Lymphocytes # (auto) 2.42 K/uL (1.20-3.40); Lymphocytes % (auto) 15.7 %; Mean Corpuscular Hemoglobin 28.7 pg (25.0-34.0); Mean Corpuscular Hgb Conc 32.6 g/dL (32.0-36.0); Mean Platelet Volume 11.7 fL (9.4-12.4); Monocytes # (auto) 0.83 K/uL (0.11-0.59); Monocytes % (auto) 5.4 %; Neutrophils # (auto) 11.36 K/uL (1.40-6.50); Neutrophils % (auto) 73.8 %; Platelet Count 182 K/uL (130-400); RDW Coefficient of Variation 14.5 % (11.5-14.5); RDW Standard Deviation 46.8 fL (36.4-46.3); Red Blood Count 3.66 M/uL (4.70-6.10)
[2023-07-26 07:04] LABS: Partial Thromboplastin Ratio 1.8
[2023-07-26 07:06] LABS: Partial Thromboplastin Time 49.5 Seconds (21.0-31.0)
--- NOTE | 2023-07-26 07:14 | Electrocardiogram Report ---
Test Reason : Blood Pressure : / mmHG Vent. Rate : 065 BPM Atrial Rate : 065 BPM P-R Int : 130 ms QRS Dur : 112 ms QT Int : 518 ms P-R-T Axes : 045 -65 -85 degrees QTc Int : 538 ms Normal sinus rhythm with sinus arrhythmia Left anterior fascicular block Bifascicular block Minimal voltage criteria for LVH, may be normal variant Marked T-wave abnormality, consider inferolateral ischemia Abnormal ECG When compared with ECG of 24-JUL-2023 14:59, Premature atrial complexes are no longer Present Confirmed by Arron Jennings ([id number]) on 07/26/2023 7:14:11 AM Referred By: REFERRED SELF Confirmed By:Tito Jennings
--- NOTE | 2023-07-26 07:24 | Electrocardiogram Report ---
Test Reason : Blood Pressure : / mmHG Vent. Rate : 059 BPM Atrial Rate : 059 BPM P-R Int : 134 ms QRS Dur : 118 ms QT Int : 568 ms P-R-T Axes : 042 -50 261 degrees QTc Int : 562 ms Sinus bradycardia with marked sinus arrhythmia Left anterior fascicular block Left ventricular hypertrophy with QRS widening and repolarization abnormality vs ischemia Incomplete right bundle branch block Prolonged QT Abnormal ECG When compared with ECG of 25-JUL-2023 11:13, (unconfirmed) No significant change was found Confirmed by Arron Jennings ([id number]) on 07/26/2023 7:23:52 AM Referred By: REFERRED SELF Confirmed By:Tito Jennings
--- NOTE | 2023-07-26 07:34 | Ultrasound Report ---
BILATERAL LOWER EXTREMITY VENOUS DOPPLER CLINICAL HISTORY: leg pain COMPARISON STUDY: Right lower extremity venous Doppler ultrasound May 16, 2022. Bilateral lower ext remity venous Doppler ultrasound November 08, 2021. TECHNIQUE: Sonography of the deep venous system of the bilateral lower extremities was performed. Co mpression and augmentation were evaluated. FINDINGS: Evaluation of the calf vessels was suboptimal due to edema. Left popliteal vein was not we ll-visualized due to difficulty positioning. The bilateral common femoral, superficial femoral and po pliteal veins were compressible. Augmentation was normal. Flow was shown within the deep calf vessels . Note is made of a 3.6 x 0.7 x 2.4 cm right popliteal cyst. IMPRESSION: 1. No evidence of deep venous thrombus within the bilateral lower extremities although exam technical ly compromised, as above. 2. 3.6 x 0.7 x 2.4 cm right popliteal cyst. ACT 112: Negative or not required by law. Electronically signed by: Marco Mcpherson M.D. 07/26/2023 7:32 AM
[2023-07-26] MEDS: PANTOprazole 40 MG TAB PO SCH (08:50)
[2023-07-26] MEDS: METOPROLOL TARTRATE 25 MG TAB PO SCH ×2 (08:50→20:03)
[2023-07-26] MEDS: HEPARIN SODIUM/DEXTROSE 25,000 UNITS/500 ML BAG IV SCH (09:32)
[2023-07-26] MEDS: CEFEPIME 2,000 MG in SYRINGE 0 ML IV SCH ×2 (10:09→22:24)
[2023-07-26 10:12] LABS: Calcium 7.8 mg/dl (8.6-10.3); Creatinine Clr Calc Pharmacy 26.3 ml/min; Est GFR (African American) 28.1 ml/min; Est GFR (Non-African American) 24.2 ml/min; Potassium 3.4 mmol/L (3.5-5.1)
[2023-07-26] MEDS: PANTOprazole 40 MG in SYRINGE 0 ML IV SCH (10:44)
--- NOTE | 2023-07-26 10:58 | Nephrology Progress Note ---
Date of Service July 26, 2023 Assessment & Plan (1) CESAR (acute kidney injury): Plan: Patient with acute kidney injury due to ischemic ATN in setting of gram-negative bacteremia. Creatinine on admission was 3.2 from a normal baseline of 0.9. today cr down to 2.4. Patient is being resuscitated with IV fluids and antibiotics. Electrolytes are stable no indication for dialysis. -Avoid hypotension. Avoid contrast or other nephrotoxins. Continue IV fluids f or resuscitation (2) DKA (diabetic ketoacidosis): Plan: Patient is on insulin drip per ICU and primary team. (3) Bacteremia: Plan: Continue IV antibiotics renally dosed for current GFR. Admission and Anticipated Discharge Date Admission Date: July 24, 2023 Subjective Seen for CESAR. he feels better today. He says he is hungry and wants to eat. No SOB Review of Systems Review of Systems: All other systems were reviewed and negative except as noted in HPI Physical Exam Physical Exam: General exam: Appears comfortable, no acute distress HEENT: Pupils are equal and reactive to light Neck: No JVD, neck is supple trachea is midline Respiratory system: Clear breath sounds bilaterally. Gastrointestinal: Abdomen is soft, non distended, non tender, bowel sounds are present CVS: Regular rate and rhythm. No murmurs, rubs or gallops Musculoskeletal: No joint or muscle tenderness Extremities: Non tender, 1+ edema, peripheral pulses are present Neuro: Oriented, no tremors, no focal neurological deficits Skin: No rashes Results & Data Vital Signs (Past 12 Hours) Vital Signs Temp Pulse Pulse Resp BP Pulse Ox O2 Del Method 07/26/23 07:44 36.5 C 59 L 17 117/54 L 92 Room Air 07/26/23 07:20 61 07/26/23 05:15 97/64 L 07/26/23 02:32 36.8 C 67 19 93/55 L 93 Room Air 07/25/23 23:26 37 C 68 19 118/55 L 97 Room Air Laboratory Results 07/26/23 05:50 07/25/23 07/26/23 12:21 05:43 WBC 15.40 H RBC 3.66 L MCV 88.0 MCH 28.7 MCHC 32.6 RDW Std Deviation 46.8 H RDW Coeff of Scott 14.5 Plt Count 182 MPV 11.7 Phosphorus 2.2 L
[2023-07-26] MEDS ORDERED: INSULIN ASPART PER UNIT CHARGE SC SCH (12:00)
--- NOTE | 2023-07-26 13:59 | Pharmacy Report ---
Pharmacy Glycemic Short Note 2 - Date of Service July 26, 2023 - Glycemic Short BSG Results (Last 24 hours): 07/25/23 07/25/23 07/25/23 14:44 16:36 20:14 Glucose POC Glucose 303 H* 200 H 238 H 07/26/23 07/26/23 07/26/23 01:11 05:06 05:50 Glucose 81 POC Glucose 124 H 71 07/26/23 07/26/23 07/26/23 06:29 07:59 11:59 Glucose POC Glucose 84 88 127 H OUTPATIENT ANTIDIABETIC REGIMEN: * Xultophy 20 units SC HS * Novolog 5 units SC AC * HbA1c: 10.7% (04/29/23) ASSESSMENT: 07/26: * Selvin received 59 units of insulin yesterday, 40 units basal + 19 units bolus. BSGs were: 725-886-498-302-200-238 mg/dL. * Fasting BSG was below goal at 84 mg/dL this AM. Will reduce basal significantly given NPO and dextrose discontinued. Will loosen Novolog as well while NPO. 07/25: * 77 yo M admitted on 07/24/23 secondary to HHS/CESAR/Afib/Resp failure. Pharmacy has been consulted to assist with inpatient glycemic management. Patient is a Type 2 diabetic as an outpatient. Please refer to outpatient regimen and most recent HbA1c above. * BSG was 768 mg/dL upon arrival yesterday. Started on an insulin drip. Received ~ 62 units via drip over a 12 hour period. * Will give a dose of basal insulin this morning in hopes of transitioning. 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 * RN shut insulin drip off right after Lantus administration without overlap due to compatibility issues. Discontinued dextrose and potassium containing fluids. Biscuit Factory Worker would like 1/2 NS running at 75 mL/hr. * Remains NPO. No enteral nutrition yet. Cefepime for infection. Amiodarone and Heparin drips running. * Will start Novolog q4 for time being. PLAN FOR INPATIENT GLYCEMIC CONTROL: * Basal insulin * Lantus 12 units SC HS * Bolus insulin * NovoLog per scale q4h while NPO * Goal Range: Low 110 mg/dL - High 140 mg/dL * Correction Factor: 30 mg/dL/unit * Nutritional / Prandial insulin per carb ratio of 1 unit per 10 grams CHO consumed
[2023-07-26] MEDS ORDERED: POTASSIUM CHLORIDE CRTAB 20 MEQ TABCR PO STA (14:05)
[2023-07-26] MEDS: traMADol HCL 50 MG TABLET PO PRN (14:36)
[2023-07-26] MEDS: ICU Protocol for HYPERglycemia SCH (15:25)
--- NOTE | 2023-07-26 15:37 | Hospitalist Progress Note ---
Date of Service July 26, 2023 Assessment & Plan (1) DKA (diabetic ketoacidosis): (2) High anion gap metabolic acidosis: (3) Metabolic encephalopathy: (4) Paroxysmal atrial fibrillation: (5) CESAR (acute kidney injury): (6) Elevated troponin: (7) Acute electrocardiogram changes: (8) Chronic heart failure with preserved ejection fraction (HFpEF): (9) Severe aortic stenosis: Plan per admitting service notes with addendum: This is a critically ill 77-year-old male who has a significant past medical history of medication noncompliance, T2DM, PAF anticoagulated on Eliquis, chronic HFpEF, moderate to severe aortic stenosis, HTN, HLD and BPH who presents to ED via EMS secondary to altered mental status. Sepsis secondary to Bacteremia, UTI Serratia marescens In the setting of indwelling Yee catheter pt with initial tachycardia, leukocytosis, initial hypotension, lactic acidosis tachycardia improved after fluid administration/IV lopressor for afib blood/urine culture obtained empirically tx with vanco/cefepime in ED - will continue for now CT head/CT a/p pending lyme screen negative anaplasma, babesia ordered - pt recently dx with anaplasma and started on tx in May, uncertain if he completed tx 07/26 Urine and Blood culture: Serratia marescens repeat blood culture: Pending Stable continue IV Cefepime Day 3 We will consult ID DKA in the setting of Sepsis Metabolic encephalopathy 07/26 Resolved transitioned to Glargine + Novolog continue to monitor closely CESAR Likely from prerenal, sepsis baseline cr 0.8 presents with BUN/CR 125/3.28 crea still at 2.5 Nephrology service on board continue IV fluids Atrial Fibrillation in RVR In the setting of sepsis has history of a fib initially presented in RVR, converted after IVF and IV metoprolol uncertain if compliant with eliquis 07/26 required Cardioversion in the ICU converted to sinus rhythm Also required amiodarone drip Continue metoprolol tartrate 25 mg twice daily Transition from heparin drip to usual Eliquis 5 mg twice a day this evening Elevated troponin Acute EKG changes obtain stat echo per weighmaster, this was discussed with food services coordinator cycle trops, likely in setting of critical illness EKG 73 NSR PAC, RBBB, LAFB, St t wave changes diffusely likely demand ischemia 9/24 trop 100, 200, 100s Chronic HFpEF Severe Aortic Stenosis HTN HLD daily weights/strict intake and output recent echo: 04/2023 EF 50-55%, moderate concentric LVH, moderate to severe aortic stenosis, moderate mitral calcification, RV normal in size and function 07/26 appears euvolemic at this time BPH with GORDON yee in place [facility] urology follow pt, yee exchanged in ED continue yee DVT ppx: IV heparin, transiton to eliis FULL CODE - as per discussion with , will need reevaluated once pt more alert PCP: Elvie Maria Disposition Pending Will order PT and OT evaluation Admission and Anticipated Discharge Date Admission Date: July 24, 2023 Subjective Follow-up for bacteremia, UTI, DKA, etc. seen resting in bed, comfortable states he feels fine overall no chest pain, dyspnea, palpitations, dizziness no fever/chills, nausea/vomiting no other new symptoms Review of Systems Review of Systems: all noted and negative except for above Physical Exam Physical Exam: General- oriented x 3, not in distress, speaks in sentences with no effort or accessory muscle use Eyes- anicteric Neck- no JVD Lungs- clear breath sounds bilaterally, no crackles or wheezing Heart- normal rate, regular rhythm; no murmurs Abdomen- normal bowel sounds, nondistended, soft, no tenderness Extremities- no pretibial edema, no calf tenderness Neuro- alert, oriented x 3; no gross focal neurologic deficits Skin- warm & dry Results & Data Results & Data Vital Signs (Past 12 Hours) Vital Signs Temp Pulse Pulse Resp BP Pulse Ox O2 Del Method 07/26/23 12:24 36.6 C 58 L 19 124/68 91 Room Air 07/26/23 08:00 Room Air 07/26/23 07:44 36.5 C 59 L 17 117/54 L 92 Room Air 07/26/23 07:20 61 07/26/23 05:15 97/64 L all noted and reviewed including below
[2023-07-26] MEDS ORDERED: Nursing to Pharmacy Communication SCH (15:45)
[2023-07-26] MEDS: APIXABAN 5 MG TABLET PO SCH (20:03)
[2023-07-26] MEDS ORDERED: LANTUS PER UNIT CHARGE SC SCH (21:00)
[2023-07-27] MEDS: SODIUM CHLORIDE 0.45 % 1,000 ML IV SCH ×3 (04:18→18:21)
[2023-07-27] MEDS: traMADol HCL 50 MG TABLET PO PRN (04:32)
[2023-07-27 06:31] LABS: BUN Creatinine Ratio 28.8 (10-20); Calcium 7.7 mg/dl (8.6-10.3); Est GFR (African American) 27.7 ml/min; Est GFR (Non-African American) 23.9 ml/min; Magnesium 2.3 mg/dl (1.7-2.4); Phosphorus 3.1 mg/dl (2.5-4.9); Potassium 4.3 mmol/L (3.5-5.1)
[2023-07-27] MEDS: INSULIN ASPART PER UNIT CHARGE SC SCH ×4 (08:18→22:06)
[2023-07-27] MEDS: PANTOprazole 40 MG TAB PO SCH (08:18)
[2023-07-27] MEDS: METOPROLOL TARTRATE 25 MG TAB PO SCH ×2 (08:18→21:49)
[2023-07-27] MEDS: APIXABAN 5 MG TABLET PO SCH ×2 (08:18→21:49)
--- NOTE | 2023-07-27 09:25 | Nephrology Progress Note ---
Date of Service July 27, 2023 Assessment & Plan (1) CESAR (acute kidney injury): Plan: Improving stage 3 nonoliguric CESAR from ischemic ATN in setting of gram-negative bacteremia. Creatinine on admission was 3.2 from a normal baseline of 0.9. today cr plateau'd mid 2's x 24 hrs w/ polyuria. Patient is being resuscitated with IV fluids and antibiotics. Electrolytes are stable no indication for dialysis. DKA has resolved; no longer on insulin gtt -Avoid hypotension. Avoid contrast or other nephrotoxins. -Continue 1/2 NS current rate for resuscitation (2) Bacteremia: Plan: arriaga sensitive Serratia marescens bacteremia >> 9/24 cxs negative at 24hrs. Continue cefepime renally dosed for current GFR. Admission and Anticipated Discharge Date Admission Date: July 24, 2023 Subjective off of insulin gtt now; 3.4 L UOP past 24 hr; no interval events clinically. denies pain, sob, edema worsening. Review of Systems Review of Systems: All systems reviewed & are unremarkable except as noted in Subjective Physical Exam Constitutional: well developed, well nourished and + frail appearing; no acute distress Eyes: EOM intact bilaterally ENMT: Ears: + hearing impairment; no external ear abnormality Nose: no external nose abnormality Mouth: + dry oral mucous membranes Neck: no nuchal rigidity Respiratory: normal respiratory effort Auscultation: + diminished lung sounds and + crackles (bibasilar) Cardiovascular: Rate/Rhythm: regular rate and regular rhythm Extremities: + edema (2+ BL ankle) Gastrointestinal (Abdomen): Inspection/Auscultation: normal bowel sounds Percussion/Palpation: abdomen soft; abdomen nontender Musculoskeletal: Extremities: strength 5/5 throughout Skin: no rashes, warm and dry Neurologic: griffith, fluent speech, no tremor Results & Data Vital Signs (Past 12 Hours) Vital Signs Temp Pulse Pulse Resp BP Pulse Ox O2 Del Method 07/27/23 07:19 36.4 C L 61 16 124/72 93 Room Air 07/27/23 02:34 37 C 60 18 118/64 94 Room Air 07/27/23 00:00 57 L 07/26/23 22:54 36.8 C 60 18 108/53 L 94 Room Air Laboratory Results 07/26/23 05:43 07/27/23 05:53
[2023-07-27] MEDS: CEFEPIME 2,000 MG in SYRINGE 0 ML IV SCH ×2 (11:15→22:11)
--- NOTE | 2023-07-27 13:08 | Pharmacy Report ---
Pharmacy Glycemic Short Note 2 - Date of Service July 27, 2023 - Glycemic Short BSG Results (Last 24 hours): 07/26/23 07/26/23 07/27/23 16:23 19:51 05:53 Glucose 164 H POC Glucose 206 H 249 H 07/27/23 07/27/23 07:21 11:27 Glucose POC Glucose 153 H 173 H OUTPATIENT ANTIDIABETIC REGIMEN: * Xultophy 20 units SC HS * Novolog 5 units SC AC * HbA1c: 10.7% (04/29/23) ASSESSMENT: 07/27: * BSGs 142-892-410-173mg/dL the last 24h. Received 12 units of basal and 11 units of bolus insulin yesterday. * Diet reinitiated and continues on antibiotics. * Increase basal to 15 units at HS given slightly elevated fasting. Novolog parameters tightened with advancement of diet. 07/26: * Selvin received 59 units of insulin yesterday, 40 units basal + 19 units bolus. BSGs were: [id number] mg/dL. * Fasting BSG was below goal at 84 mg/dL this AM. Will reduce basal significantly given NPO and dextrose discontinued. Will loosen Novolog as well while NPO. 07/25: * 77 yo M admitted on 07/24/23 secondary to HHS/CESAR/Afib/Resp failure. Pharmacy has been consulted to assist with inpatient glycemic management. Patient is a Type 2 diabetic as an outpatient. Please refer to outpatient regimen and most recent HbA1c above. * BSG was 768 mg/dL upon arrival yesterday. Started on an insulin drip. Received ~ 62 units via drip over a 12 hour period. * Will give a dose of basal insulin this morning in hopes of transitioning. Staff Counsel okay with transitioning today. * RN shut insulin drip off right after Lantus administration without overlap due to compatibility issues. Discontinued dextrose and potassium containing fluids. Staff Counsel would like 1/2 NS running at 75 mL/hr. * Remains NPO. No enteral nutrition yet. Cefepime for infection. Amiodarone and Heparin drips running. * Will start Novolog q4 for time being. PLAN FOR INPATIENT GLYCEMIC CONTROL: * Basal insulin * Lantus 15 units SC HS * Bolus insulin * NovoLog per scale q4h while NPO * Goal Range: Low 110 mg/dL - High 140 mg/dL * Correction Factor: 20 mg/dL/unit * Nutritional / Prandial insulin per carb ratio of 1 unit per 7 grams CHO consumed
--- NOTE | 2023-07-27 15:17 | Hospitalist Progress Note ---
Date of Service July 27, 2023 Assessment & Plan (1) DKA (diabetic ketoacidosis): (2) High anion gap metabolic acidosis: (3) Metabolic encephalopathy: (4) Paroxysmal atrial fibrillation: (5) CESAR (acute kidney injury): (6) Elevated troponin: (7) Acute electrocardiogram changes: (8) Chronic heart failure with preserved ejection fraction (HFpEF): (9) Severe aortic stenosis: Plan per admitting service notes with addendum: This is a critically ill 77-year-old male who has a significant past medical history of medication noncompliance, T2DM, PAF anticoagulated on Eliquis, chronic HFpEF, moderate to severe aortic stenosis, HTN, HLD and BPH who presents to ED via EMS secondary to altered mental status. Sepsis secondary to Bacteremia, UTI Serratia marescens In the setting of indwelling Yee catheter pt with initial tachycardia, leukocytosis, initial hypotension, lactic acidosis tachycardia improved after fluid administration/IV lopressor for afib blood/urine culture obtained empirically tx with vanco/cefepime in ED - will continue for now CT head/CT a/p pending lyme screen negative anaplasma, babesia ordered - pt recently dx with anaplasma and started on tx in May, uncertain if he completed tx 07/27 Urine and Blood culture: Serratia marescens repeat blood culture: Negative Stable continue IV Cefepime Day 4 ID consulted DKA in the setting of Sepsis Metabolic encephalopathy 07/27 Resolved transitioned to Glargine + Novolog continue to monitor closely CESAR Likely from prerenal, sepsis baseline cr 0.8 presents with BUN/CR 125/3.28 crea still at 2.5 Nephrology service on board continue IV fluids Atrial Fibrillation in RVR In the setting of sepsis has history of a fib initially presented in RVR, converted after IVF and IV metoprolol uncertain if compliant with eliquis required Cardioversion in the ICU converted to sinus rhythm Also required amiodarone drip 07/27 SR now Continue metoprolol tartrate 25 mg twice daily Eliquis 5 mg twice a day Elevated troponin Acute EKG changes obtain stat echo per rail car loader, this was discussed with resaw carriage operator cycle trops, likely in setting of critical illness EKG 73 NSR PAC, RBBB, LAFB, St t wave changes diffusely likely demand ischemia trop 100, 200, 100s Chronic HFpEF Severe Aortic Stenosis HTN HLD daily weights/strict intake and output recent echo: 04/2023 EF 50-55%, moderate concentric LVH, moderate to severe aortic stenosis, moderate mitral calcification, RV normal in size and function appears euvolemic at this time BPH with GORDON yee in place [facility] urology follow pt, yee exchanged in ED continue yee DVT ppx: Gera FULL CODE - as per discussion with , will need reevaluated once pt more garrett leigh PCP: Elvie Maria Disposition Pending PT/OT evaluation Admission and Anticipated Discharge Date Admission Date: July 24, 2023 Subjective ff up for bacteremia, UTI, etc seen resting in bed, comfortable sitting up states he feels improving overall no chest pain, dyspnea, palpitations, dizziness no abdominal pain ,nausea, chills no other symptoms Review of Systems Review of Systems: all noted and negative except for above Physical Exam Physical Exam: General- oriented x 3, not in distress, speaks in sentences with no effort or accessory muscle use Eyes- anicteric Neck- no JVD Lungs- clear breath sounds bilaterally, no rales/wheezes Heart- normal rate, regular rhythm; no murmurs Abdomen- normal bowel sounds, nondistended, soft, nontender Extremities- no pretibial edema, no calf tenderness Neuro- alert, oriented x 3; no gross focal neurologic deficits Skin- warm & dry Results & Data Results & Data Vital Signs (Past 12 Hours) Vital Signs Temp Pulse Pulse Resp BP Pulse Ox O2 Del Method 07/27/23 12:37 37.1 C 07/27/23 12:34 61 20 118/62 95 Nasal Cannula 07/27/23 07:00 61 07/27/23 07:19 36.4 C L 61 16 124/72 93 Room Air O2 Flow Rate 07/27/23 12:37 07/27/23 12:34 2 07/27/23 07:00 07/27/23 07:19 all noted and reviewed including below
--- NOTE | 2023-07-27 16:56 | Infectious Disease Consult ---
Date of Service July 27, 2023 Telehealth Information I performed this visit using a real-time telehealth connection between my location and the patients location ([facility]). After connecting through interactive tele-video, patient was identified by name and date of and/or wristband check.Patient (or authorized healthcare help desk representative) was informed that this was a telemedicine visit and it was being conducted confidentially over secure lines. My office door was closed and no one else was present in the room with me.Patient (or authorized healthcare help desk representative) provided consent to proceed with the visit, expressed an understanding of privacy and security of the telemedicine visit, and gave permission to have a hospital help desk representative in the room in order to assist with the visit and to conduct portions of the visit, as needed. I informed the patient (or authorized healthcare help desk representative) that I reviewed their record and presented the opportunity for them to ask any questions regarding the visit today. The patient agreed to participate. Assessment & Plan (1) Gram-negative bacteremia: (2) Catheter-associated urinary tract infection: (3) Indwelling Yee catheter present: (4) DKA (diabetic ketoacidosis): Plan - We agree with the primary team on IV cefepime. Please continue IV cefepime while inpatient. Can step-down to oral Bactrim DS 1 tablet twice daily to complete a course of 10 days including inpatient hospital days. Anticipated end date will be August 03, 2023. - Thank you for consulting ID. We will sign off for now. History of Present Illness History of Present Illness Mr. Sebastian is 77 yo man with medical history of type 2 diabetes, HTN, heart failure with preserved ejection fraction, severe aortic stenosis, paroxysmal AFib, dyslipidemia, and BPH (with indwelling Yee catheter) who was admitted to [facility] on 07/24 because of altered mental status. On presentation, he was found to be in AFib with RVR at 172. He was normotensive and afebrile. He was also hypoxic at room air thus requiring 2 L per minute oxygen via nasal cannula. His initial workup showed leukocytosis of 16.6 (ANC C 14.5), CESAR and anion gap metabolic acidosis. He had a CT abdomen pelvis showing a urinary bladder wall thickening with indwelling Yee catheter. Hepatic steatosis and sludge in the gallbladder were also noticed. No hydronephrosis or nephrolithiasis and there was diverticulosis without acute diverticulitis. Shortly after admission, 3/4 bottles of blood culture came back positive for Serratia. The organism also grew from urine culture. Id team was consulted for further recommendations and to help with the management of complicated UTI with Serratia bacteremia. Allergies Allergy/AdvReac Type Severity Reaction Status Date / Time lisinopril Allergy Severe Swelling Verified 05/26/23 14:21 of Face/Lips/Tongue Home Medications Medication Instructions Recorded Confirmed Type atorvastatin 40 mg tablet 40 mg PO QAM 11/08/21 07/24/23 History apixaban 5 mg tablet (Eliquis) 5 mg PO BID #60 tabs 11/11/21 07/24/23 Rx insulin aspart U-100 100 unit/mL 5 unit subcut TIDM 05/16/22 07/24/23 History (3 mL) subcutaneous pen (Novolog FlexPen U-100 Insulin aspart) metformin 500 mg tablet,extended 1,000 mg PO QAM 05/16/22 07/24/23 History release 24 hr metoprolol tartrate 25 mg tablet 25 mg PO BID 05/16/22 07/24/23 History furosemide 40 mg tablet 40 mg PO QPM 11/20/22 07/24/23 History furosemide 40 mg tablet 80 mg PO QAM 11/20/22 07/24/23 History finasteride 5 mg tablet 5 mg PO DAILY #30 tabs 05/20/23 07/24/23 Rx tamsulosin 0.4 mg capsule 0.4 mg PO DAILY #30 caps 05/20/23 07/24/23 Rx insulin degludec 100 20 unit subcut HS 06/17/23 07/24/23 History unit-liraglutide 3.6 mg/mL(3 mL) subcutaneous pen (Xultophy 100/3.6) Patient History Medical History Abnormal urinalysis Acute hyperglycemia Acute hypokalemia Atrial fibrillation with rapid ventricular response Bilateral edema of lower extremity BPH (benign prostatic hyperplasia) Cellulitis D-dimer, elevated Diabetes mellitus, type II DM type 2 (diabetes mellitus, type 2) DVT prophylaxis Dyslipidemia Dyspnea Edema of both legs Elevated brain natriuretic peptide (BNP) level Hearing loss Heart failure with preserved ejection fraction HTN (hypertension) Hypertension Hypokalemia Leukocytosis Moderate aortic stenosis Paroxysmal atrial fibrillation Paroxysmal atrial fibrillation Premature atrial complexes Puncture wound of foot, right Right foot infection Volume overload Surgical History H/O shoulder surgery History of ear surgery age 19, mastoid S/P foot surgery, left Family History Brother Diabetes Social History Smoking Status: Former smoker Tobacco Type: Cigarettes Second Hand Exposure: No; Do You Dip or Chew Tobacco: No; Hx Alcohol Use: No Hx Substance Use: No Preferred Language: Pashto Communication Ability: [facility] Communication Ability Comment: pt very hard of hearing Community Education Coordinator Required: No Beliefs That Will Affect Care: None marital status: Current Living Situation: Alone Current Living Situation Comment: lives in a building that has no running water How many Children do You have: 3 Feels Safe at Home: Hesitant to Answer Assistive Devices: Cane Review of Systems Constitutional: fatigue, but no fever or chills HEENT: no sore throat, no nasal discharge Cardiovascular: no chest pain, or palpitations Respiratory: no shortness of breath, no cough Gastrointestinal: No nausea, vomiting, diarrhea or abdominal pain : yee catheter in place Musculoskeletal/Skin: no muscle pain or skin rash Neurologic: no dizziness or headache Physical Exam Couldn't be obtained as the consult was via telemed. Results & Data Vital Signs (Past 12 Hours) Vital Signs Temp Pulse Pulse Resp BP Pulse Ox O2 Del Method 07/27/23 15:17 36.4 C L 60 18 118/61 94 Room Air 07/27/23 12:37 37.1 C 07/27/23 12:34 61 20 118/62 95 Nasal Cannula 07/27/23 07:00 61 07/27/23 07:19 36.4 C L 61 16 124/72 93 Room Air O2 Flow Rate 07/27/23 15:17 07/27/23 12:37 07/27/23 12:34 2 07/27/23 07:00 07/27/23 07:19 Laboratory Results MICROBIOLOGY: 07/24: 3/4 bottles of blood culture positive for Serratia 07/24: Urine culture positive for Serratia 07/26: 2 sets of blood culture negative to date Diagnostic Findings Ct abd/pelvis on 07/24: 1. Wall thickening of the urinary bladder with indwelling Yee catheter. Correlate for UTI. 2. Hepatic steatosis. 3. Sludge in the gallbladder. 4. No hydronephrosis or nephrolithiasis. Mild fullness of the bilateral renal collecting systems. 5. Diverticulosis, without acute diverticulitis. No small bowel obstruction. No free intraperitoneal air .
[2023-07-27] MEDS ORDERED: LANTUS PER UNIT CHARGE SC SCH (21:00)
[2023-07-28] MEDS: traMADol HCL 50 MG TABLET PO PRN ×3 (00:50→21:41)
[2023-07-28] MEDS: SODIUM CHLORIDE 0.45 % 1,000 ML IV SCH (06:30)
[2023-07-28 07:23] LABS: Creatinine Clr Calc Pharmacy 26.8 ml/min; Est GFR (African American) 31.8 ml/min; Est GFR (Non-African American) 27.4 ml/min; Magnesium 2.1 mg/dl (1.7-2.4); Phosphorus 2.8 mg/dl (2.5-4.9); Potassium 4.1 mmol/L (3.5-5.1)
--- NOTE | 2023-07-28 08:22 | Nephrology Progress Note ---
Date of Service July 28, 2023 Assessment & Plan (1) CESAR (acute kidney injury): Plan: further improving stage 3 nonoliguric CESAR from ischemic ATN in setting of gram- negative bacteremia. Creatinine on admission was 3.2 from a normal baseline of 1.0. today cr somewhat improved to 2.2 w/ ongoing polyuria, suggestive of recovery phase of ATN. Patient is being resuscitated with IV fluids and antibiotics. Electrolytes are stable no indication for dialysis. DKA has resolved; no longer on insulin gtt. On Lasix 80/40 as an outpatient -Avoid hypotension. Avoid contrast or other nephrotoxins. -Stopped half-normal saline Started potassium 20 mill equivalents twice daily Started Lasix 20 mg IV every 8 hour (patient with Hanna) Care coordinated with Dr. Qureshi (2) Bacteremia: Plan: arriaga sensitive Serratia marescens bacteremia >> 9/24 cxs negative at 48 hrs. Continue cefepime renally dosed for current GFR; plan to change to bactrim at d/c per ID Admission and Anticipated Discharge Date Admission Date: July 24, 2023 Subjective No interval events clinically. Does admit his breath is a bit short. He cannot really comment on his edema. Review of Systems Review of Systems: All systems reviewed & are unremarkable except as noted in Subjective Physical Exam Constitutional: well developed, well nourished and + frail appearing; no acute distress Eyes: EOM intact bilaterally ENMT: Ears: + hearing impairment; no external ear abnormality Nose: no external nose abnormality Mouth: + dry oral mucous membranes Neck: no nuchal rigidity Respiratory: + labored breathing (Slight) Auscultation: + diminished lung sounds and + crackles (bibasilar) Cardiovascular: Rate/Rhythm: regular rate and regular rhythm Extremities: + edema (2+ BL ankle) Gastrointestinal (Abdomen): Inspection/Auscultation: normal bowel sounds Percussion/Palpation: abdomen soft; abdomen nontender Musculoskeletal: Extremities: strength 5/5 throughout Skin: no rashes, warm and dry Results & Data Vital Signs (Past 12 Hours) Vital Signs Temp Pulse Pulse Resp BP Pulse Ox O2 Del Method 07/28/23 02:29 36.8 C 63 18 128/76 98 Room Air 07/28/23 00:00 64 07/27/23 23:00 37.1 C 61 18 133/69 94 Room Air Laboratory Results 07/26/23 05:43 07/28/23 06:18
[2023-07-28] MEDS: METOPROLOL TARTRATE 25 MG TAB PO SCH ×2 (08:28→20:21)
[2023-07-28] MEDS: PANTOprazole 40 MG TAB PO SCH (08:28)
[2023-07-28] MEDS: APIXABAN 5 MG TABLET PO SCH ×2 (08:28→20:20)
[2023-07-28] MEDS: INSULIN ASPART PER UNIT CHARGE SC SCH ×4 (08:35→21:43)
[2023-07-28] MEDS: CEFEPIME 2,000 MG in SYRINGE 0 ML IV SCH (10:50)
--- NOTE | 2023-07-28 11:46 | Pharmacy Report ---
Pharmacy Glycemic Short Note 2 - Date of Service July 28, 2023 - Glycemic Short BSG Results (Last 24 hours): 07/27/23 07/27/23 07/27/23 16:17 19:42 20:13 Glucose POC Glucose 203 H 219 H 191 H 07/28/23 07/28/23 07/28/23 06:18 07:38 11:20 Glucose 156 H POC Glucose 187 H 229 H OUTPATIENT ANTIDIABETIC REGIMEN: * Xultophy 20 units SC HS * Novolog 5 units SC AC * HbA1c: 10.7% (04/29/23) ASSESSMENT: 07/28: * BSGs 255-306-912-229mg/dL the last 24h. Received 15 units of basal and 25 units of bolus insulin yesterday. * Tolerating diet, continues on cefepime. * Increase basal to 20 units given elevated fasting. Tighten novolog for improved prandial coverage and improved PO intake. 07/27: * BSGs [phone]/dL the last 24h. Received 12 units of basal and 11 units of bolus insulin yesterday. * Diet reinitiated and continues on antibiotics. * Increase basal to 15 units at HS given slightly elevated fasting. Novolog parameters tightened with advancement of diet. 07/26: * Selvin received 59 units of insulin yesterday, 40 units basal + 19 units bolus. BSGs were: [phone] mg/dL. * Fasting BSG was below goal at 84 mg/dL this AM. Will reduce basal significantly given NPO and dextrose discontinued. Will loosen Novolog as well while NPO. 07/25: * 77 yo M admitted on 07/24/23 secondary to HHS/CESAR/Afib/Resp failure. Pharmacy has been consulted to assist with inpatient glycemic management. Patient is a Type 2 diabetic as an outpatient. Please refer to outpatient regimen and most recent HbA1c above. * BSG was 768 mg/dL upon arrival yesterday. Started on an insulin drip. Received ~ 62 units via drip over a 12 hour period. * Will give a dose of basal insulin this morning in hopes of transitioning. Conductor Pullman okay with transitioning today. * RN shut insulin drip off right after Lantus administration without overlap due to compatibility issues. Discontinued dextrose and potassium containing fluids. Conductor Pullman would like 1/2 NS running at 75 mL/hr. * Remains NPO. No enteral nutrition yet. Cefepime for infection. Amiodarone and Heparin drips running. * Will start Novolog q4 for time being. PLAN FOR INPATIENT GLYCEMIC CONTROL: * Basal insulin * Lantus 20 units SC HS * Bolus insulin * NovoLog per scale q4h while NPO * Goal Range: Low 110 mg/dL - High 140 mg/dL * Correction Factor: 15mg/dL/unit * Nutritional / Prandial insulin per carb ratio of 1 unit per 5 grams CHO consumed
[2023-07-28] MEDS: FUROSEMIDE INJ 20 MG/2 ML VIAL IV SCH ×2 (12:36→21:31)
[2023-07-28] MEDS: POTASSIUM CHLORIDE CRTAB 20 MEQ TABCR PO SCH ×2 (12:37→20:24)
--- NOTE | 2023-07-28 15:22 | Hospitalist Progress Note ---
Date of Service July 28, 2023 Assessment & Plan (1) DKA (diabetic ketoacidosis): (2) High anion gap metabolic acidosis: (3) Metabolic encephalopathy: (4) Paroxysmal atrial fibrillation: (5) CESAR (acute kidney injury): (6) Elevated troponin: (7) Acute electrocardiogram changes: (8) Chronic heart failure with preserved ejection fraction (HFpEF): (9) Severe aortic stenosis: Plan per admitting service notes with addendum: This is a critically ill 77-year-old male who has a significant past medical history of medication noncompliance, T2DM, PAF anticoagulated on Eliquis, chronic HFpEF, moderate to severe aortic stenosis, HTN, HLD and BPH who presents to ED via EMS secondary to altered mental status. Sepsis secondary to Bacteremia, UTI Serratia marescens In the setting of indwelling Yee catheter pt with initial tachycardia, leukocytosis, initial hypotension, lactic acidosis tachycardia improved after fluid administration/IV lopressor for afib blood/urine culture obtained empirically tx with vanco/cefepime in ED - will continue for now CT head/CT a/p pending lyme screen negative anaplasma, babesia ordered - pt recently dx with anaplasma and started on tx in May, uncertain if he completed tx 07/28 Urine and Blood culture: Serratia marescens repeat blood culture: Negative Stable continue IV Cefepime Day 5 ID consulted-recommend oral Bactrim- contraindicated in light of acute kidney injury Recommended Levaquin-contraindicated in light of prolonged QT ID recommends last day of antibiotic August 03, 2023 Recommend continue IV antibiotics till then DKA in the setting of Sepsis Metabolic encephalopathy 07/28 Resolved transitioned to Glargine + Novolog continue to monitor closely CESAR Likely from prerenal, sepsis baseline cr 0.8 presents with BUN/CR 125/3.28 crea still at 2.2 Nephrology service on board given IV fluids - (+) edema IV fluids held Lasix 20mg IV q8h ordered Atrial Fibrillation in RVR In the setting of sepsis has history of a fib initially presented in RVR, converted after IVF and IV metoprolol uncertain if compliant with eliquis required Cardioversion in the ICU converted to sinus rhythm Also required amiodarone drip 07/28 SR now Continue metoprolol tartrate 25 mg twice daily Eliquis 5 mg twice a day Elevated troponin Acute EKG changes obtain stat echo per criminal justice lawyer, this was discussed with printed circuit boards solder leveler cycle trops, likely in setting of critical illness EKG 73 NSR PAC, RBBB, LAFB, St t wave changes diffusely likely demand ischemia trop 100, 200, 100s Chronic HFpEF Severe Aortic Stenosis HTN HLD daily weights/strict intake and output recent echo: 04/2023 EF 50-55%, moderate concentric LVH, moderate to severe aortic stenosis, moderate mitral calcification, RV normal in size and function appears euvolemic at this time BPH with GORDON yee in place [facility] urology follow pt, yee exchanged in ED continue yee DVT ppx: Eliquis FULL CODE - as per discussion with , will need reevaluated once pt more alert PCP: Elvie Maria Disposition Pending PT/OT evaluation Admission and Anticipated Discharge Date Admission Date: July 24, 2023 Subjective Follow-up for UTI, bacteremia, etc. Seen resting in bed, comfortable, not in distress, watching TV States he feels okay overall Feels he is improving No chest pain, palpitation, shortness of breath, dizziness Denies abdominal pain, nausea or vomiting No other new symptoms Review of Systems Review of Systems: all noted and negative except for above Physical Exam Physical Exam: General- oriented x 3, not in distress, speaks in sentences with no effort or accessory muscle use Eyes- anicteric Neck- no JVD Lungs- clear breath sounds bilaterally, no rales/wheezes Heart- normal rate, regular rhythm; no murmurs Abdomen- normal bowel sounds, nondistended, soft, nontender Extremities- no pretibial edema, no calf tenderness Neuro- alert, oriented x 3; no gross focal neurologic deficits Skin- warm & dry Results & Data Results & Data Vital Signs (Past 12 Hours) Vital Signs Temp Pulse Pulse Resp BP Pulse Ox O2 Del Method 07/28/23 11:57 36.8 C 63 18 119/79 97 Room Air 07/28/23 07:00 60 07/28/23 08:00 36.8 C 88 18 104/56 L 97 Room Air all noted and reviewed including below
[2023-07-28] MEDS: CARBOHYDRATES FOR HYPOGLYCEMIA PO PRN (20:00)
[2023-07-28] MEDS ORDERED: LANTUS PER UNIT CHARGE SC SCH (21:00)
[2023-07-29] MEDS ORDERED: INSULIN ASPART PER UNIT CHARGE SC SCH
[2023-07-29] MEDS: CEFEPIME 2,000 MG in SYRINGE 0 ML IV SCH ×2 (00:15→10:58)
[2023-07-29] MEDS: FUROSEMIDE INJ 20 MG/2 ML VIAL IV SCH ×2 (04:28→12:12)
[2023-07-29 06:17] LABS: Hematocrit (blood only) 35.4 % (42.0-52.0); Hemoglobin 11.7 g/dl (14.0-18.0); Mean Corpuscular Hemoglobin 28.7 pg (25.0-34.0); Mean Corpuscular Hgb Conc 33.1 g/dL (32.0-36.0); Mean Corpuscular Volume 86.8 fL (80.0-100.0); Platelet Count 275 K/uL (130-400); RDW Coefficient of Variation 14.1 % (11.5-14.5); RDW Standard Deviation 45.2 fL (36.4-46.3); Red Blood Count 4.08 M/uL (4.70-6.10); White Blood Count 15.04 K/ul (4.8-10.8)
[2023-07-29 06:38] LABS: Calcium 8.4 mg/dl (8.6-10.3); Creatinine Clr Calc Pharmacy 24.8 ml/min; Est GFR (African American) 28.9 ml/min; Phosphorus 3.1 mg/dl (2.5-4.9); Potassium 4.1 mmol/L (3.5-5.1)
[2023-07-29] MEDS: INSULIN ASPART PER UNIT CHARGE SC SCH ×4 (08:56→21:19)
[2023-07-29] MEDS: PANTOprazole 40 MG TAB PO SCH (08:57)
[2023-07-29] MEDS: APIXABAN 5 MG TABLET PO SCH ×2 (08:57→21:18)
[2023-07-29] MEDS: METOPROLOL TARTRATE 25 MG TAB PO SCH ×2 (08:57→21:21)
[2023-07-29] MEDS: POTASSIUM CHLORIDE CRTAB 20 MEQ TABCR PO SCH (08:58)
[2023-07-29] MEDS ORDERED: LANTUS PER UNIT CHARGE SC SCH (09:00)
--- NOTE | 2023-07-29 09:17 | Hospitalist Progress Note ---
Date of Service July 29, 2023 Assessment & Plan (1) DKA (diabetic ketoacidosis): (2) High anion gap metabolic acidosis: (3) Metabolic encephalopathy: (4) Paroxysmal atrial fibrillation: (5) CESAR (acute kidney injury): (6) Elevated troponin: (7) Acute electrocardiogram changes: (8) Chronic heart failure with preserved ejection fraction (HFpEF): (9) Severe aortic stenosis: Plan per admitting service notes with addendum: This is a critically ill 77-year-old male who has a significant past medical history of medication noncompliance, T2DM, PAF anticoagulated on Eliquis, chronic HFpEF, moderate to severe aortic stenosis, HTN, HLD and BPH who presents to ED via EMS secondary to altered mental status. Sepsis secondary to Bacteremia, UTI Serratia marescens In the setting of indwelling Yee catheter pt with initial tachycardia, leukocytosis, initial hypotension, lactic acidosis tachycardia improved after fluid administration/IV lopressor for afib blood/urine culture obtained empirically tx with vanco/cefepime in ED CT head/CT a/p pending lyme screen negative anaplasma, babesia ordered - pt recently dx with anaplasma and started on tx in May, uncertain if he completed tx Urine and Blood culture: Serratia marescens repeat blood culture: Negative continue IV Cefepime Day 6 ID consulted-recommend oral Bactrim- contraindicated in light of acute kidney injury Recommended Levaquin-contraindicated in light of prolonged QT ID recommends last day of antibiotic August 03, 2023 Recommend continue IV antibiotics till then DKA in the setting of Sepsis Metabolic encephalopathy Resolved transitioned to Glargine + Novolog continue to monitor closely CESAR Likely from prerenal, sepsis baseline cr 0.8 presents with BUN/CR 125/3.28 crea still at 2.4 Nephrology service consulted and following closely Pt received IVF, IV lasix Atrial Fibrillation in RVR In the setting of sepsis has history of a fib initially presented in RVR, converted after IVF and IV metoprolol uncertain if compliant with eliquis required Cardioversion in the ICU converted to sinus rhythm Also required amiodarone drip SR now Continue metoprolol tartrate 25 mg twice daily Eliquis 5 mg twice a day Elevated troponin Acute EKG changes obtained echo per bird raiser, this was discussed with processing specialist cycled trops, likely in setting of critical illness EKG 73 NSR PAC, RBBB, LAFB, St t wave changes diffusely likely demand ischemia trop 100, 200, 100s Chronic HFpEF Severe Aortic Stenosis HTN HLD daily weights/strict intake and output recent echo: 04/2023 EF 50-55%, moderate concentric LVH, moderate to severe aortic stenosis, moderate mitral calcification, RV normal in size and function appears euvolemic at this time BPH with GORDON yee in place [facility] urology follow pt, yee exchanged in ED continue yee DVT ppx: Eliquis FULL CODE - as per discussion with , will need reevaluated once pt more alert. Currently DNR/DNI in our system. PCP: Elvie Maria Disposition Pending, [facility] of [facility] involved PT/OT evaluation Admission and Anticipated Discharge Date Admission Date: July 24, 2023 Subjective Follow-up for UTI, bacteremia, CESAR, etc. Sitting up in chair, in NAD, eating - also met with office of ageing and was interviewed by them States he feels better overall No fevre, chills, chest pain, palpitation, shortness of breath, dizziness Denies abdominal pain, nausea or vomiting BP on lower side overnight Nephrology following closely Review of Systems Review of Systems: All systems reviewed & are unremarkable except as noted in Subjective Physical Exam Physical Exam: General- oriented x 3, not in distress, speaks in sentences with no effort or accessory muscle use Eyes- anicteric Neck- no JVD Lungs- clear breath sounds bilaterally, no rales/wheezes Heart- normal rate, regular rhythm; no murmurs Abdomen- normal bowel sounds, nondistended, soft, nontender Extremities- no pretibial edema, no calf tenderness Neuro- alert, oriented x 3; no gross focal neurologic deficits Skin- warm & dry Results & Data Results & Data Vital Signs (Past 12 Hours) Vital Signs Temp Pulse Pulse Resp BP Pulse Ox O2 Del Method 07/29/23 08:07 36.1 C L 71 24 110/62 96 Room Air 07/29/23 04:42 36.8 C 64 15 117/68 95 Room Air 07/29/23 00:00 62 07/29/23 00:05 36.8 C 61 19 129/65 95 Room Air Laboratory Results 07/29/23 07/29/23 07/29/23 Range/Units 07:28 05:39 05:39 WBC 15.04 H (4.8-10.8) K/ul RBC 4.08 L (4.70-6.10) M/uL Hgb 11.7 L (14.0-18.0) g/dl Hct 35.4 L (42.0-52.0) % MCV 86.8 (80.0-100.0) fL MCH 28.7 (25.0-34.0) pg MCHC 33.1 (32.0-36.0) g/dL RDW Std Deviation 45.2 (36.4-46.3) fL RDW Coeff of Scott 14.1 (11.5-14.5) % Plt Count 275 (130-400) K/uL MPV 11.0 (9.4-12.4) fL Sodium 138 (136-145) mmol/L Potassium 4.1 (3.5-5.1) mmol/L Chloride 106 (98-107) mmol/L Carbon Dioxide 26 (21-32) mmol/L Anion Gap 6 (3-11) BUN 53 H (6-23) mg/dl Creatinine 2.41 H (0.6-1.4) mg/dl Est Cr Clr Drug Dosing 24.8 ml/min Est GFR ( Amer) 28.9 ml/min Est GFR (Non-Af Amer) 25.0 ml/min BUN/Creatinine Ratio 22.0 H (10-20) Glucose 170 H (70-99(Fasting)) mg/dl POC Glucose 191 H (70-99) mg/dl Calcium 8.4 L (8.6-10.3) mg/dl Phosphorus 3.1 (2.5-4.9) mg/dl Magnesium 2.0 (1.7-2.4) mg/dl 07/29/23 07/28/23 07/28/23 Range/Units 04:27 23:50 20:17 WBC (4.8-10.8) K/ul RBC (4.70-6.10) M/uL Hgb (14.0-18.0) g/dl Hct (42.0-52.0) % MCV (80.0-100.0) fL MCH (25.0-34.0) pg MCHC (32.0-36.0) g/dL RDW Std Deviation (36.4-46.3) fL RDW Coeff of Scott (11.5-14.5) % Plt Count (130-400) K/uL MPV (9.4-12.4) fL Sodium (136-145) mmol/L Potassium (3.5-5.1) mmol/L Chloride (98-107) mmol/L Carbon Dioxide (21-32) mmol/L Anion Gap (3-11) BUN (6-23) mg/dl Creatinine (0.6-1.4) mg/dl Est Cr Clr Drug Dosing ml/min Est GFR ( Amer) ml/min Est GFR (Non-Af Amer) ml/min BUN/Creatinine Ratio (10-20) Glucose (70-99(Fasting)) mg/dl POC Glucose 164 H 160 H 77 (70-99) mg/dl Calcium (8.6-10.3) mg/dl Phosphorus (2.5-4.9) mg/dl Magnesium (1.7-2.4) mg/dl 07/28/23 07/28/23 07/28/23 Range/Units 19:52 19:51 16:37 WBC (4.8-10.8) K/ul RBC (4.70-6.10) M/uL Hgb (14.0-18.0) g/dl Hct (42.0-52.0) % MCV (80.0-100.0) fL MCH (25.0-34.0) pg MCHC (32.0-36.0) g/dL RDW Std Deviation (36.4-46.3) fL RDW Coeff of Scott (11.5-14.5) % Plt Count (130-400) K/uL MPV (9.4-12.4) fL Sodium (136-145) mmol/L Potassium (3.5-5.1) mmol/L Chloride (98-107) mmol/L Carbon Dioxide (21-32) mmol/L Anion Gap (3-11) BUN (6-23) mg/dl Creatinine (0.6-1.4) mg/dl Est Cr Clr Drug Dosing ml/min Est GFR ( Amer) ml/min Est GFR (Non-Af Amer) ml/min BUN/Creatinine Ratio (10-20) Glucose (70-99(Fasting)) mg/dl POC Glucose 64 L* 67 L* 74 (70-99) mg/dl Calcium (8.6-10.3) mg/dl Phosphorus (2.5-4.9) mg/dl Magnesium (1.7-2.4) mg/dl 07/28/23 Range/Units 11:20 WBC (4.8-10.8) K/ul RBC (4.70-6.10) M/uL Hgb (14.0-18.0) g/dl Hct (42.0-52.0) % MCV (80.0-100.0) fL MCH (25.0-34.0) pg MCHC (32.0-36.0) g/dL RDW Std Deviation (36.4-46.3) fL RDW Coeff of Scott (11.5-14.5) % Plt Count (130-400) K/uL MPV (9.4-12.4) fL Sodium (136-145) mmol/L Potassium (3.5-5.1) mmol/L Chloride (98-107) mmol/L Carbon Dioxide (21-32) mmol/L Anion Gap (3-11) BUN (6-23) mg/dl Creatinine (0.6-1.4) mg/dl Est Cr Clr Drug Dosing ml/min Est GFR ( Amer) ml/min Est GFR (Non-Af Amer) ml/min BUN/Creatinine Ratio (10-20) Glucose (70-99(Fasting)) mg/dl POC Glucose 229 H (70-99) mg/dl Calcium (8.6-10.3) mg/dl Phosphorus (2.5-4.9) mg/dl Magnesium (1.7-2.4) mg/dl Medications Administered Current Inpatient Medications Acetaminophen (Acetaminophen 325 Mg Tab) 650 mg PO QID PRN PRN Reason: pain/fever Stop: 08/24/23 23:06 Apixaban (Apixaban 5 Mg Tablet) 5 mg PO BID DARIN Stop: 08/25/23 20:59 Last Admin: 07/29/23 08:57 Dose: 5 mg Dextrose (Dextrose 50% 50 Ml Syringe) 25 - 50 ml IV UD PRN; Protocol PRN Reason: Hypoglycemia Protocol Stop: 08/23/23 15:25 Furosemide (Furosemide Inj 20 Mg/2 Ml Vial) 20 mg IV Q8H [facility] Stop: 08/27/23 11:59 Last Admin: 07/29/23 04:28 Dose: 20 mg Glucagon (Glucagon For Inj 1 Mg Vial) 1 mg SQ UD PRN; Protocol PRN Reason: Hypoglycemia Protocol Stop: 08/23/23 15:25 Glucose (Glucose 40% Gel 15 Gm Tube) 15 - 30 gm PO UD PRN; Protocol PRN Reason: Hypoglycemia Protocol Stop: 08/23/23 15:25 Glucose (Glucose 10 Tab/Tube) 4 - 8 tab PO UD PRN; Protocol PRN Reason: Hypoglycemia Treatment Stop: 08/23/23 15:25 Cefepime HCl 2,000 mg/ Syringe 20 mls @ 5 mls/min IV Q12H [facility] Stop: 08/08/23 10:29 Last Admin: 07/29/23 00:15 Dose: 5 mls/min Insulin Aspart (Insulin Aspart Per Unit Charge) 0 units SC ACHS [facility]; Protocol Stop: 08/25/23 16:29 Last Admin: 07/29/23 08:56 Dose: 15 units Insulin Glargine (Lantus Per Unit Charge) 20 units SC DAILY [facility]; Protocol Stop: 08/27/23 20:59 Last Admin: 07/29/23 08:57 Dose: 20 units Metoprolol Tartrate (Metoprolol Tartrate 25 Mg Tab) 25 mg PO BID [facility] Stop: 08/24/23 08:59 Last Admin: 07/29/23 08:57 Dose: 25 mg Metoprolol Tartrate (Metoprolol Tartrate 1 Mg/Ml Vial) 5 mg IV Q4 PRN PRN Reason: HR>120 Stop: 08/24/23 11:59 Miscellaneous (Carbohydrates For Hypoglycemia ) 15 - 30 gm PO UD PRN PRN Reason: Hypoglycemia Protocol Stop: 08/23/23 15:25 Last Admin: 07/28/23 20:00 Dose: 15 gm Miscellaneous Information (Pharmacy Glycemic Mgmt Consult) 1 each N/A UD PRN PRN Reason: Consult Stop: 08/23/23 19:41 Pantoprazole Sodium (Pantoprazole 40 Mg Tab) 40 mg PO DAILY [facility] Stop: 08/24/23 08:59 Last Admin: 07/29/23 08:57 Dose: 40 mg Potassium Chloride (Potassium Chloride Crtab 20 Meq Tabcr) 20 meq PO BID DARIN Stop: 08/27/23 11:59 Last Admin: 07/29/23 08:58 Dose: 20 meq Tramadol HCl (Tramadol Hcl 50 Mg Tablet) 25 - 50 mg PO Q4H PRN PRN Reason: Pain Stop: 08/25/23 05:21 Last Admin: 07/28/23 21:41 Dose: 50 mg
[2023-07-29] MEDS: CEFEPIME 1,000 MG in SYRINGE 0 ML IV SCH (12:12)
--- NOTE | 2023-07-29 12:36 | Pharmacy Report ---
Pharmacy Glycemic Short Note 2 - Date of Service July 29, 2023 - Glycemic Short BSG Results (Last 24 hours): 07/28/23 07/28/23 07/28/23 16:37 19:51 19:52 Glucose POC Glucose 74 67 L* 64 L* 07/28/23 07/28/23 07/29/23 20:17 23:50 04:27 Glucose POC Glucose 77 160 H 164 H 07/29/23 07/29/23 07/29/23 05:39 07:28 11:13 Glucose 170 H POC Glucose 191 H 312 H* 07/29/23 11:14 Glucose POC Glucose 283 H OUTPATIENT ANTIDIABETIC REGIMEN: * Xultophy 20 units SC HS * Novolog 5 units SC AC * HbA1c: 10.7% (04/29/23) ASSESSMENT: 07/29: * BSGs 26-38-766-283mg/dl the last 24h. Received no basal and 38 units of bolus insulin yesterday. * Stressors stable. * Given low BSGs yesterday at dinner, Lantus was held. Resumed this AM at 20 units as fasting was 191mg/dL. Novolog loosened back to 20/6 today and again BSG is high at lunch. Will use a tighter carb ratio tomorrow at breakfast with looser ratio at all other times (max 15 units at lunch, dinner and HS). 07/28: * BSGs [phone]/dL the last 24h. Received 15 units of basal and 25 units of bolus insulin yesterday. * Tolerating diet, continues on cefepime. * Increase basal to 20 units given elevated fasting. Tighten novolog for improved prandial coverage and improved PO intake. 07/27: * BSGs [phone]/dL the last 24h. Received 12 units of basal and 11 units of bolus insulin yesterday. * Diet reinitiated and continues on antibiotics. * Increase basal to 15 units at HS given slightly elevated fasting. Novolog parameters tightened with advancement of diet. 07/26: * Selvin received 59 units of insulin yesterday, 40 units basal + 19 units bolus. BSGs were: [phone] mg/dL. * Fasting BSG was below goal at 84 mg/dL this AM. Will reduce basal significantly given NPO and dextrose discontinued. Will loosen Novolog as well while NPO. 07/25: * 77 yo M admitted on 07/24/23 secondary to HHS/CESAR/Afib/Resp failure. Pharmacy has been consulted to assist with inpatient glycemic management. Patient is a Type 2 diabetic as an outpatient. Please refer to outpatient regimen and most recent HbA1c above. * BSG was 768 mg/dL upon arrival yesterday. Started on an insulin drip. Received ~ 62 units via drip over a 12 hour period. * Will give a dose of basal insulin this morning in hopes of transitioning. Tier Lift Operator okay with transitioning today. * RN shut insulin drip off right after Lantus administration without overlap due to compatibility issues. Discontinued dextrose and potassium containing fluids. Tier Lift Operator would like 1/2 NS running at 75 mL/hr. * Remains NPO. No enteral nutrition yet. Cefepime for infection. Amiodarone and Heparin drips running. * Will start Novolog q4 for time being. PLAN FOR INPATIENT GLYCEMIC CONTROL: * Basal insulin * Lantus 20 units SC daily * Bolus insulin * NovoLog per scale q4h while NPO * Goal Range: Low 110 mg/dL - High 140 mg/dL * Correction Factor: 20mg/dL/unit * Nutritional / Prandial insulin per carb ratio of 1 unit per 5 grams (breakfast), 6 grams (1130,1630,2100) CHO consumed
--- NOTE | 2023-07-29 13:51 | Nephrology Progress Note ---
Date of Service July 29, 2023 Assessment & Plan (1) CESAR (acute kidney injury): Plan: today plateau'd stage 3 nonoliguric CESAR from ischemic ATN in setting of gram- negative bacteremia; had improved initially then stalled w/ resuming diuretics. Creatinine on admission was 3.2 from a normal baseline of 1.0. today cr plateau'd at 2.4 w/ massive polyuria, suggestive of recovery phase of ATN in setting of diuretics. Patient is on antibiotics. Electrolytes are stable no indication for dialysis. DKA has resolved; no longer on insulin gtt. On Lasix 80/40 as an outpatient -Avoid hypotension. Avoid contrast or other nephrotoxins. -creat may worsen tomorrow >> overall 9L negative on the admission and 7L past 24 hrs >>>had considered giving NS but w/ marked fluid intake (2+L on daylight by midday), will let him continue po ad harinder -hold lasix and K after midday today >> likely to resume in am -recheck BMP in AM and reevaluate at that point -stricter I/O to be taken and started daily standing weight to help eval volume status -defer to primary service when to remove yee (could remove today; would keep one more day if feasible given 9L UOP (sic)) Care coordinated with Dr. Adamson (2) Bacteremia: Plan: arriaga sensitive Serratia marescens bacteremia w/ presume source >> 07/26 cxs ne gative at 48 hrs and not further updated today so far. Continue cefepime renally dosed for current GFR; plan to change to bactrim at d/c per ID Admission and Anticipated Discharge Date Admission Date: July 24, 2023 Subjective I/O have been somewhat incomplete overnight >> pt taking in far more than charted; does endorse thirst ; no sob, no change in edema Review of Systems Review of Systems: All systems reviewed & are unremarkable except as noted in Subjective Physical Exam Constitutional: well developed, well nourished and + frail appearing; no acute distress Eyes: EOM intact bilaterally ENMT: Ears: + hearing impairment; no external ear abnormality Nose: no external nose abnormality Mouth: + dry oral mucous membranes Neck: no nuchal rigidity Respiratory: normal respiratory effort and + labored breathing (Slight) Auscultation: + diminished lung sounds and + crackles (bibasilar) Cardiovascular: Rate/Rhythm: regular rate and regular rhythm Extremities: + edema (2+ BL ankle) Gastrointestinal (Abdomen): Inspection/Auscultation: normal bowel sounds Percussion/Palpation: abdomen soft; abdomen nontender Musculoskeletal: Extremities: strength 5/5 throughout Skin: no rashes, warm and dry Results & Data Vital Signs (Past 12 Hours) Vital Signs Temp Pulse Resp BP Pulse Ox O2 Del Method 07/29/23 11:31 36.3 C L 79 11 L 98/76 L 98 Room Air 07/29/23 08:07 36.1 C L 71 24 110/62 96 Room Air 07/29/23 04:42 36.8 C 64 15 117/68 95 Room Air Laboratory Results 07/29/23 05:39 07/29/23 05:39 Diagnostic Findings TTE > modertate/ severe , EF 55%; DDF
[2023-07-29] MEDS ORDERED: SODIUM CHLORIDE 0.9% 1,000 ML IV SCH (14:00)
[2023-07-30] MEDS: CEFEPIME 1,000 MG in SYRINGE 0 ML IV SCH ×2 (00:30→12:08)
[2023-07-30 06:13] LABS: Hematocrit (blood only) 32.2 % (42.0-52.0); Hemoglobin 10.8 g/dl (14.0-18.0); Mean Corpuscular Hemoglobin 29.3 pg (25.0-34.0); Mean Corpuscular Hgb Conc 33.5 g/dL (32.0-36.0); Mean Corpuscular Volume 87.3 fL (80.0-100.0); Mean Platelet Volume 10.8 fL (9.4-12.4); Platelet Count 328 K/uL (130-400); RDW Coefficient of Variation 14.2 % (11.5-14.5); Red Blood Count 3.69 M/uL (4.70-6.10); White Blood Count 18.85 K/ul (4.8-10.8)
[2023-07-30] MEDS: traMADol HCL 50 MG TABLET PO PRN (06:32)
[2023-07-30 06:39] LABS: Creatinine Clr Calc Pharmacy 23.4 ml/min; Est GFR (African American) 26.9 ml/min; Est GFR (Non-African American) 23.2 ml/min; Magnesium 1.9 mg/dl (1.7-2.4); Phosphorus 3.7 mg/dl (2.5-4.9); Potassium 4.1 mmol/L (3.5-5.1)
[2023-07-30 08:22] LABS: Babesia microti DNA Not Detected (Not Detected)
[2023-07-30] MEDS: METOPROLOL TARTRATE 25 MG TAB PO SCH ×2 (08:56→20:02)
[2023-07-30] MEDS: PANTOprazole 40 MG TAB PO SCH (08:56)
[2023-07-30] MEDS: INSULIN ASPART PER UNIT CHARGE SC SCH ×4 (08:56→20:08)
[2023-07-30] MEDS: APIXABAN 5 MG TABLET PO SCH ×2 (08:56→20:03)
[2023-07-30] MEDS ORDERED: LANTUS PER UNIT CHARGE SC SCH (09:00)
--- NOTE | 2023-07-30 09:52 | Nephrology Progress Note ---
Date of Service July 30, 2023 Assessment & Plan (1) CESAR (acute kidney injury): Plan: today slightly worse stage 3 nonoliguric CESAR from ischemic ATN in setting of gram-negative bacteremia; had improved initially then stalled w/ resuming diuretics. Creatinine on admission was 3.2 from a normal baseline of 1.0. today cr increased from 2.4 yesterday to 2.6 today w/ massive polyuria, suggestive of recovery phase of ATN in setting of diuretics. Patient is on a ntibiotics. Electrolytes are stable no indication for dialysis. DKA has resolved; no longer on insulin gtt. On Lasix 80/40 as an outpatient but not likely he was taking as prescribed -Avoid hypotension. Avoid contrast or other nephrotoxins. -creat may worsen tomorrow >> intake and outtake have not always been accurately charted and nursing aware/working on this Standing weight today 77.7 -Will for today continue to hold lasix and K -recheck BMP in AM -Continue strict intake and outtake and daily standing weight to help eval volume status -for now no FR -defer to primary service when to remove yee >> history of obstructive uropathy and failed or near failed voiding trial prior to admission (2) Bacteremia: Plan: arriaga sensitive Serratia marescens bacteremia w/ presume source >> 07/26 cxs negative at 48 hrs and not further updated today so far. Continue cefepime renally dosed for current GFR; plan to change to bactrim at d/c per ID Admission and Anticipated Discharge Date Admission Date: July 24, 2023 Subjective No interval events clinically. Patient feels his fluid status is acceptable. No shortness of breath, no worsening edema Review of Systems Review of Systems: All systems reviewed & are unremarkable except as noted in Subjective Physical Exam Constitutional: well developed, well nourished and + frail appearing; no acute distress Eyes: EOM intact bilaterally ENMT: Ears: + hearing impairment; no external ear abnormality Nose: no external nose abnormality Mouth: + dry oral mucous membranes Neck: no nuchal rigidity Respiratory: normal respiratory effort Auscultation: + diminished lung sounds Cardiovascular: Rate/Rhythm: regular rate and regular rhythm Extremities: + edema (2+ BL ankle) Gastrointestinal (Abdomen): Inspection/Auscultation: normal bowel sounds Percussion/Palpation: abdomen soft; abdomen nontender Musculoskeletal: Extremities: strength 5/5 throughout Skin: no rashes, warm and dry Results & Data Vital Signs (Past 12 Hours) Vital Signs Temp Pulse Pulse Resp BP Pulse Ox O2 Del Method 07/30/23 08:00 Room Air 07/30/23 08:00 62 07/30/23 08:04 36.6 C 64 18 127/99 95 Room Air 07/30/23 03:30 36.8 C 68 18 144/81 H 95 Room Air 07/29/23 23:00 78 07/29/23 23:18 37.5 C 72 18 122/66 93 Room Air Laboratory Results 07/30/23 05:35 07/30/23 05:35
--- NOTE | 2023-07-30 11:24 | Hospitalist Progress Note ---
Date of Service July 30, 2023 Assessment & Plan (1) DKA (diabetic ketoacidosis): (2) High anion gap metabolic acidosis: (3) Metabolic encephalopathy: (4) Paroxysmal atrial fibrillation: (5) CESAR (acute kidney injury): (6) Elevated troponin: (7) Acute electrocardiogram changes: (8) Chronic heart failure with preserved ejection fraction (HFpEF): (9) Severe aortic stenosis: Plan This is a critically ill 77-year-old male who has a significant past medical history of medication noncompliance, T2DM, PAF anticoagulated on Eliquis, chronic HFpEF, moderate to severe aortic stenosis, HTN, HLD and BPH who presents to ED via EMS secondary to altered mental status. Sepsis secondary to Bacteremia, UTI Serratia marescens In the setting of indwelling Yee catheter pt with initial tachycardia, leukocytosis, initial hypotension, lactic acidosis tachycardia improved after fluid administration/IV lopressor for afib blood/urine culture obtained empirically tx with vanco/cefepime in ED CT head/CT a/p pending lyme screen negative anaplasma, babesia ordered - pt recently dx with anaplasma and started on tx in May, uncertain if he completed tx Urine and Blood culture: Serratia marescens repeat blood culture: Negative continue IV Cefepime ID consulted-recommend oral Bactrim- contraindicated in light of acute kidney injury Recommended Levaquin-contraindicated in light of prolonged QT ID recommends last day of antibiotic August 03, 2023 Recommend continue IV antibiotics till then DKA in the setting of Sepsis Metabolic encephalopathy Resolved transitioned to Glargine + Novolog continue to monitor closely CESAR Likely from prerenal, sepsis baseline cr 0.8 presents with BUN/CR 125/3.28 crea still at 2.4 -> 2.6 Nephrology service consulted and following closely Pt received IVF, IV lasix; holding lasix now Atrial Fibrillation in RVR In the setting of sepsis has history of a fib initially presented in RVR, converted after IVF and IV metoprolol uncertain if compliant with eliquis required Cardioversion in the ICU converted to sinus rhythm Also required amiodarone drip SR now Continue metoprolol tartrate 25 mg twice daily Eliquis 5 mg twice a day Elevated troponin Acute EKG changes obtained echo per director transition, this was discussed with newsstand vendor cycled trops, likely in setting of critical illness EKG 73 NSR PAC, RBBB, LAFB, St t wave changes diffusely likely demand ischemia trop 100, 200, 100s Chronic HFpEF Severe Aortic Stenosis HTN HLD daily weights/strict intake and output recent echo: 04/2023 EF 50-55%, moderate concentric LVH, moderate to severe aortic stenosis, moderate mitral calcification, RV normal in size and function appears euvolemic at this time BPH with GORDON yee in place [facility] follow pt, yee exchanged in ED continue yee DVT ppx: Eliquis FULL CODE - as per discussion with , will need reevaluated once pt more alert. Currently DNR/DNI in our system. PCP: Elvie Maria Disposition Pending, Office of ageing involved PT/OT evaluation Admission and Anticipated Discharge Date Admission Date: July 24, 2023 Subjective Follow-up for UTI, bacteremia, CESAR, etc. Sitting up in chair, in NAD, eating. States he feels better overall No fever, chills, chest pain, palpitation, shortness of breath, dizziness Denies abdominal pain, nausea or vomiting BP on lower side previous night Nephrology following closely Also met with office of ageing and was interviewed by them yesterday Review of Systems Review of Systems: All systems reviewed & are unremarkable except as noted in Subjective Physical Exam Physical Exam: General- oriented x 3, not in distress, speaks in sentences with no effort or accessory muscle use Eyes- anicteric Neck- no JVD Lungs- clear breath sounds bilaterally, no rales/wheezes Heart- normal rate, regular rhythm; no murmurs Abdomen- normal bowel sounds, nondistended, soft, nontender Extremities- no pretibial edema, no calf tenderness Neuro- alert, oriented x 3; no gross focal neurologic deficits Skin- warm & dry Results & Data Results & Data Vital Signs (Past 12 Hours) Vital Signs Temp Pulse Pulse Resp BP Pulse Ox O2 Del Method 07/30/23 08:00 Room Air 07/30/23 08:00 62 07/30/23 08:04 36.6 C 64 18 127/99 95 Room Air 07/30/23 03:30 36.8 C 68 18 144/81 H 95 Room Air Laboratory Results 07/30/23 07/30/23 07/30/23 Range/Units 11:07 07:18 05:35 WBC 18.85 H (4.8-10.8) K/ul RBC 3.69 L (4.70-6.10) M/uL Hgb 10.8 L (14.0-18.0) g/dl Hct 32.2 L (42.0-52.0) % MCV 87.3 (80.0-100.0) fL MCH 29.3 (25.0-34.0) pg MCHC 33.5 (32.0-36.0) g/dL RDW Std Deviation 45.0 (36.4-46.3) fL RDW Coeff of Scott 14.2 (11.5-14.5) % Plt Count 328 (130-400) K/uL MPV 10.8 (9.4-12.4) fL Sodium (136-145) mmol/L Potassium (3.5-5.1) mmol/L Chloride (98-107) mmol/L Carbon Dioxide (21-32) mmol/L Anion Gap (3-11) BUN (6-23) mg/dl Creatinine (0.6-1.4) mg/dl Est Cr Clr Drug Dosing ml/min Est GFR ( Amer) ml/min Est GFR (Non-Af Amer) ml/min BUN/Creatinine Ratio (10-20) Glucose (70-99(Fasting)) mg/dl POC Glucose 252 H 160 H (70-99) mg/dl Calcium (8.6-10.3) mg/dl Phosphorus (2.5-4.9) mg/dl Magnesium (1.7-2.4) mg/dl Babesia microti DNA PCR (Not Detected) 07/30/23 07/29/23 07/29/23 Range/Units 05:35 20:59 16:18 WBC (4.8-10.8) K/ul RBC (4.70-6.10) M/uL Hgb (14.0-18.0) g/dl Hct (42.0-52.0) % MCV (80.0-100.0) fL MCH (25.0-34.0) pg MCHC (32.0-36.0) g/dL RDW Std Deviation (36.4-46.3) fL RDW Coeff of Scott (11.5-14.5) % Plt Count (130-400) K/uL MPV (9.4-12.4) fL Sodium 138 (136-145) mmol/L Potassium 4.1 (3.5-5.1) mmol/L Chloride 103 (98-107) mmol/L Carbon Dioxide 27 (21-32) mmol/L Anion Gap 8 (3-11) BUN 59 H (6-23) mg/dl Creatinine 2.56 H (0.6-1.4) mg/dl Est Cr Clr Drug Dosing 23.4 ml/min Est GFR ( Amer) 26.9 ml/min Est GFR (Non-Af Amer) 23.2 ml/min BUN/Creatinine Ratio 23.0 H (10-20) Glucose 150 H (70-99(Fasting)) mg/dl POC Glucose 97 184 H (70-99) mg/dl Calcium 8.0 L (8.6-10.3) mg/dl Phosphorus 3.7 (2.5-4.9) mg/dl Magnesium 1.9 (1.7-2.4) mg/dl Babesia microti DNA PCR (Not Detected) 07/24/23 Range/Units 17:28 WBC (4.8-10.8) K/ul RBC (4.70-6.10) M/uL Hgb (14.0-18.0) g/dl Hct (42.0-52.0) % MCV (80.0-100.0) fL MCH (25.0-34.0) pg MCHC (32.0-36.0) g/dL RDW Std Deviation (36.4-46.3) fL RDW Coeff of Scott (11.5-14.5) % Plt Count (130-400) K/uL MPV (9.4-12.4) fL Sodium (136-145) mmol/L Potassium (3.5-5.1) mmol/L Chloride (98-107) mmol/L Carbon Dioxide (21-32) mmol/L Anion Gap (3-11) BUN (6-23) mg/dl Creatinine (0.6-1.4) mg/dl Est Cr Clr Drug Dosing ml/min Est GFR ( Amer) ml/min Est GFR (Non-Af Amer) ml/min BUN/Creatinine Ratio (10-20) Glucose (70-99(Fasting)) mg/dl POC Glucose (70-99) mg/dl Calcium (8.6-10.3) mg/dl Phosphorus (2.5-4.9) mg/dl Magnesium (1.7-2.4) mg/dl Babesia microti DNA PCR Not Detected (Not Detected) Medications Administered Current Inpatient Medications Acetaminophen (Acetaminophen 325 Mg Tab) 650 mg PO QID PRN PRN Reason: pain/fever Stop: 08/24/23 23:06 Apixaban (Apixaban 5 Mg Tablet) 5 mg PO BID DARIN Stop: 08/25/23 20:59 Last Admin: 07/30/23 08:56 Dose: 5 mg Dextrose (Dextrose 50% 50 Ml Syringe) 25 - 50 ml IV UD PRN; Protocol PRN Reason: Hypoglycemia Protocol Stop: 08/23/23 15:25 Furosemide (Furosemide Inj 20 Mg/2 Ml Vial) 20 mg IV Q8H DARIN Stop: 08/27/23 11:59 Last Admin: 07/29/23 12:12 Dose: 20 mg Glucagon (Glucagon For Inj 1 Mg Vial) 1 mg SQ UD PRN; Protocol PRN Reason: Hypoglycemia Protocol Stop: 08/23/23 15:25 Glucose (Glucose 40% Gel 15 Gm Tube) 15 - 30 gm PO UD PRN; Protocol PRN Reason: Hypoglycemia Protocol Stop: 08/23/23 15:25 Glucose (Glucose 10 Tab/Tube) 4 - 8 tab PO UD PRN; Protocol PRN Reason: Hypoglycemia Treatment Stop: 08/23/23 15:25 Cefepime HCl 1,000 mg/ Syringe 10 mls @ 5 mls/min IV Q12H DARIN; Protocol Stop: 08/03/23 11:59 Last Admin: 07/30/23 00:30 Dose: 5 mls/min Insulin Aspart (Insulin Aspart Per Unit Charge) 0 units SC TID@1130,1630,2100 [facility]; Protocol Stop: 08/25/23 16:29 Last Admin: 07/29/23 21:19 Dose: Not Given Insulin Aspart (Insulin Aspart Per Unit Charge) 0 units SC DAILY@0730 [facility] Stop: 08/29/23 07:29 Last Admin: 07/30/23 08:56 Dose: 11 units Insulin Glargine (Lantus Per Unit Charge) 23 units SC DAILY [facility]; Protocol Stop: 08/27/23 20:59 Last Admin: 07/30/23 08:57 Dose: 23 units Metoprolol Tartrate (Metoprolol Tartrate 25 Mg Tab) 25 mg PO BID D[facility]IN Stop: 08/24/23 08:59 Last Admin: 07/30/23 08:56 Dose: 25 mg Metoprolol Tartrate (Metoprolol Tartrate 1 Mg/Ml Vial) 5 mg IV Q4 PRN PRN Reason: HR>120 Stop: 08/24/23 11:59 Miscellaneous (Carbohydrates For Hypoglycemia ) 15 - 30 gm PO UD PRN PRN Reason: Hypoglycemia Protocol Stop: 08/23/23 15:25 Last Admin: 07/28/23 20:00 Dose: 15 gm Miscellaneous Information (Pharmacy Glycemic Mgmt Consult) 1 each N/A UD PRN PRN Reason: Consult Stop: 08/23/23 19:41 Pantoprazole Sodium (Pantoprazole 40 Mg Tab) 40 mg PO DAILY [facility] Stop: 08/24/23 08:59 Last Admin: 07/30/23 08:56 Dose: 40 mg Potassium Chloride (Potassium Chloride Crtab 20 Meq Tabcr) 20 meq PO BID DARIN Stop: 08/27/23 11:59 Last Admin: 07/29/23 08:58 Dose: 20 meq Tramadol HCl (Tramadol Hcl 50 Mg Tablet) 25 - 50 mg PO Q4H PRN PRN Reason: Pain Stop: 08/25/23 05:21 Last Admin: 07/30/23 06:32 Dose: 50 mg
--- NOTE | 2023-07-30 14:18 | Pharmacy Report ---
Pharmacy Glycemic Short Note 2 - Date of Service July 30, 2023 - Glycemic Short BSG Results (Last 24 hours): 07/29/23 07/29/23 07/30/23 16:18 20:59 05:35 Glucose 150 H POC Glucose 184 H 97 07/30/23 07/30/23 07:18 11:07 Glucose POC Glucose 160 H 252 H OUTPATIENT ANTIDIABETIC REGIMEN: * Xultophy 20 units SC HS * Novolog 5 units SC AC * HbA1c: 10.7% (04/29/23) ASSESSMENT: 07/30: * BSGs 953-24-734-252mg/dL the last 24h. Received 20 units of basal and 42 units of bolus insulin yesterday. * Other stressors stable. * Titrate basal given elevated fasting to 23 units. Novolog further tightened at breakfast. Will loosen lunch, dinner, HS parameters given tendency to go low at night (continue max 15 units) 07/29: * BSGs 84-45-013-283mg/dl the last 24h. Received no basal and 38 units of bolus insulin yesterday. * Stressors stable. * Given low BSGs yesterday at dinner, Lantus was held. Resumed this AM at 20 units as fasting was 191mg/dL. Novolog loosened back to 20/6 today and again BSG is high at lunch. Will use a tighter carb ratio tomorrow at breakfast with looser ratio at all other times (max 15 units at lunch, dinner and HS). 07/28: * BSGs 144-914-855-229mg/dL the last 24h. Received 15 units of basal and 25 units of bolus insulin yesterday. * Tolerating diet, continues on cefepime. * Increase basal to 20 units given elevated fasting. Tighten novolog for improved prandial coverage and improved PO intake. 07/27: * BSGs 756-125-748-173mg/dL the last 24h. Received 12 units of basal and 11 units of bolus insulin yesterday. * Diet reinitiated and continues on antibiotics. * Increase basal to 15 units at HS given slightly elevated fasting. Novolog parameters tightened with advancement of diet. 07/26: * Selvin received 59 units of insulin yesterday, 40 units basal + 19 units bolus. BSGs were: [phone] mg/dL. * Fasting BSG was below goal at 84 mg/dL this AM. Will reduce basal significantly given NPO and dextrose discontinued. Will loosen Novolog as well while NPO. 07/25: * 77 yo M admitted on 07/24/23 secondary to HHS/CESAR/Afib/Resp failure. Pharmacy has been consulted to assist with inpatient glycemic management. Patient is a Type 2 diabetic as an outpatient. Please refer to outpatient regimen and most recent HbA1c above. * BSG was 768 mg/dL upon arrival yesterday. Started on an insulin drip. Received ~ 62 units via drip over a 12 hour period. * Will give a dose of basal insulin this morning in hopes of transitioning. Genetic Technologist okay with transitioning today. * RN shut insulin drip off right after Lantus administration without overlap due to compatibility issues. Discontinued dextrose and potassium containing fluids. Genetic Technologist would like 1/2 NS running at 75 mL/hr. * Remains NPO. No enteral nutrition yet. Cefepime for infection. Amiodarone and Heparin drips running. * Will start Novolog q4 for time being. PLAN FOR INPATIENT GLYCEMIC CONTROL: * Basal insulin * Lantus 23 units SC daily * Bolus insulin * NovoLog per scale ACHS * Goal Range: Low 110 mg/dL - High 140 mg/dL * Correction Factor: 15mg/dL/unit (breakfast), 25mg/dL/unit (lunch/dinner/ HS) * Nutritional / Prandial insulin per carb ratio of 1 unit per 5 grams (breakfast), 7 grams (lunch/dinner/HS) CHO consumed
--- NOTE | 2023-07-30 22:16 | Electrocardiogram Report ---
Test Reason : Blood Pressure : / mmHG Vent. Rate : 056 BPM Atrial Rate : 056 BPM P-R Int : 136 ms QRS Dur : 110 ms QT Int : 522 ms P-R-T Axes : 045 -60 243 degrees QTc Int : 503 ms Sinus bradycardia Incomplete right bundle branch block Left anterior fascicular block Possible Septal infarct , age undetermined Prolonged QT Abnormal ECG When compared with ECG of 26-JUL-2023 06:24, QT has shortened Confirmed by Ky Minaya ([id number]) on 07/30/2023 10:15:42 PM Referred By: REFERRED SELF Confirmed By:Ky Minaya
[2023-07-31] MEDS: CEFEPIME 1,000 MG in SYRINGE 0 ML IV SCH ×3 (00:42→23:01)
[2023-07-31] MEDS: traMADol HCL 50 MG TABLET PO PRN ×2 (00:44→23:01)
[2023-07-31 06:25] LABS: BUN Creatinine Ratio 25.8 (10-20); Calcium 8.1 mg/dl (8.6-10.3); Creatinine Clr Calc Pharmacy 24.5 ml/min; Est GFR (African American) 28.5 ml/min; Est GFR (Non-African American) 24.6 ml/min; Magnesium 1.8 mg/dl (1.7-2.4); Phosphorus 3.3 mg/dl (2.5-4.9); Potassium 4.5 mmol/L (3.5-5.1)
[2023-07-31 06:26] LABS: Hematocrit (blood only) 32.4 % (42.0-52.0); Hemoglobin 10.7 g/dl (14.0-18.0); Mean Corpuscular Hemoglobin 28.4 pg (25.0-34.0); Mean Corpuscular Volume 85.9 fL (80.0-100.0); Mean Platelet Volume 10.5 fL (9.4-12.4); Platelet Count 324 K/uL (130-400); RDW Coefficient of Variation 14.1 % (11.5-14.5); RDW Standard Deviation 44.4 fL (36.4-46.3); Red Blood Count 3.77 M/uL (4.70-6.10); White Blood Count 16.39 K/ul (4.8-10.8)
--- NOTE | 2023-07-31 07:25 | Hospitalist Progress Note ---
Date of Service July 31, 2023 Assessment & Plan (1) DKA (diabetic ketoacidosis): (2) High anion gap metabolic acidosis: (3) Metabolic encephalopathy: (4) Paroxysmal atrial fibrillation: (5) CESAR (acute kidney injury): (6) Elevated troponin: (7) Acute electrocardiogram changes: (8) Chronic heart failure with preserved ejection fraction (HFpEF): (9) Severe aortic stenosis: Plan This is a critically ill 77-year-old male who has a significant past medical history of medication noncompliance, T2DM, PAF anticoagulated on Eliquis, chronic HFpEF, moderate to severe aortic stenosis, HTN, HLD and BPH who presents to ED via EMS secondary to altered mental status. Sepsis secondary to Bacteremia, UTI Serratia marescens In the setting of indwelling Yee catheter pt with initial tachycardia, leukocytosis, initial hypotension, lactic acidosis tachycardia improved after fluid administration/IV lopressor for afib blood/urine culture obtained empirically tx with vanco/cefepime in ED CT head/CT a/p obtained lyme screen negative anaplasma, babesia ordered - pt recently dx with anaplasma and started on tx in May, uncertain if he completed tx Urine and Blood culture: Serratia marescens repeat blood culture: Negative continue IV Cefepime ID consulted-recommend oral Bactrim- contraindicated in light of acute kidney injury Recommended Levaquin-contraindicated in light of prolonged QT ID recommends last day of antibiotic August 03, 2023 Recommend continue IV antibiotics till then DKA in the setting of Sepsis Metabolic encephalopathy Resolved transitioned to Glargine + Novolog continue to monitor closely CESAR Likely from prerenal, sepsis baseline cr 0.8 presents with BUN/CR 125/3.28 crea still at 2.4 Nephrology service consulted and following closely Pt received IVF, IV lasix prn Atrial Fibrillation in RVR In the setting of sepsis has history of a fib initially presented in RVR, converted after IVF and IV metoprolol uncertain if compliant with eliquis required Cardioversion in the ICU converted to sinus rhythm Also required amiodarone drip SR now Continue metoprolol tartrate 25 mg twice daily Eliquis 5 mg twice a day Elevated troponin Acute EKG changes obtained echo per cash van salesperson, this was discussed with lead burner supervisor cycled trops, likely in setting of critical illness EKG 73 NSR PAC, RBBB, LAFB, St t wave changes diffusely likely demand ischemia trop 100, 200, 100s Chronic HFpEF Severe Aortic Stenosis HTN HLD daily weights/strict intake and output recent echo: 04/2023 EF 50-55%, moderate concentric LVH, moderate to severe aortic stenosis, moderate mitral calcification, RV normal in size and function appears euvolemic at this time BPH with GORDON yee in place [facility] follow pt, yee exchanged in ED continue yee DVT ppx: Gera Initially FULL CODE - as per discussion with on admission ->Currently DNR/DNI - changed by conference specialist after discussing w/ fam. PCP: Elvie Maria Disposition Pending, Office of ageing involved PT/OT evaluation Admission and Anticipated Discharge Date Admission Date: July 24, 2023 Subjective Follow-up for UTI, bacteremia, CESAR, etc. Laying in bed in NAD. Feels more tired today. says he feels some shortness of breath, he is saturating well on RA. Reports some cough. No fever, chills, chest pain, palpitation Denies abdominal pain, nausea or vomiting. He is eating well, has good appetite. Nephrology following closely CM and Office of ageing involved. Review of Systems Review of Systems: All systems reviewed & are unremarkable except as noted in Subjective Physical Exam Physical Exam: General- oriented x 3, not in distress, speaks in sentences with no effort or accessory muscle use Eyes- anicteric Neck- no JVD Lungs- clear breath sounds bilaterally, no rales/wheezes Heart- normal rate, regular rhythm; no murmurs Abdomen- normal bowel sounds, nondistended, soft, nontender Extremities- no pretibial edema, no calf tenderness Neuro- alert, oriented x 3; no gross focal neurologic deficits Skin- warm & dry Results & Data Results & Data Vital Signs (Past 12 Hours) Vital Signs Temp Pulse Pulse Resp BP Pulse Ox O2 Del Method 07/31/23 04:36 36.4 C L 63 16 102/62 95 Room Air 07/31/23 00:00 65 07/30/23 22:25 37.3 C 65 20 117/67 97 Room Air Laboratory Results 07/31/23 07/31/23 07/31/23 Range/Units 07:14 05:38 05:38 WBC 16.39 H (4.8-10.8) K/ul RBC 3.77 L (4.70-6.10) M/uL Hgb 10.7 L (14.0-18.0) g/dl Hct 32.4 L (42.0-52.0) % MCV 85.9 (80.0-100.0) fL MCH 28.4 (25.0-34.0) pg MCHC 33.0 (32.0-36.0) g/dL RDW Std Deviation 44.4 (36.4-46.3) fL RDW Coeff of Scott 14.1 (11.5-14.5) % Plt Count 324 (130-400) K/uL MPV 10.5 (9.4-12.4) fL Sodium 134 L (136-145) mmol/L Potassium 4.5 (3.5-5.1) mmol/L Chloride 101 (98-107) mmol/L Carbon Dioxide 27 (21-32) mmol/L Anion Gap 6 (3-11) BUN 63 H (6-23) mg/dl Creatinine 2.44 H (0.6-1.4) mg/dl Est Cr Clr Drug Dosing 24.5 ml/min Est GFR ( Amer) 28.5 ml/min Est GFR (Non-Af Amer) 24.6 ml/min BUN/Creatinine Ratio 25.8 H (10-20) Glucose 207 H (70-99(Fasting)) mg/dl POC Glucose 202 H (70-99) mg/dl Calcium 8.1 L (8.6-10.3) mg/dl Phosphorus 3.3 (2.5-4.9) mg/dl Magnesium 1.8 (1.7-2.4) mg/dl Babesia microti DNA PCR (Not Detected) 07/30/23 07/30/23 07/30/23 Range/Units 20:03 16:09 11:07 WBC (4.8-10.8) K/ul RBC (4.70-6.10) M/uL Hgb (14.0-18.0) g/dl Hct (42.0-52.0) % MCV (80.0-100.0) fL MCH (25.0-34.0) pg MCHC (32.0-36.0) g/dL RDW Std Deviation (36.4-46.3) fL RDW Coeff of Scott (11.5-14.5) % Plt Count (130-400) K/uL MPV (9.4-12.4) fL Sodium (136-145) mmol/L Potassium (3.5-5.1) mmol/L Chloride (98-107) mmol/L Carbon Dioxide (21-32) mmol/L Anion Gap (3-11) BUN (6-23) mg/dl Creatinine (0.6-1.4) mg/dl Est Cr Clr Drug Dosing ml/min Est GFR ( Amer) ml/min Est GFR (Non-Af Amer) ml/min BUN/Creatinine Ratio (10-20) Glucose (70-99(Fasting)) mg/dl POC Glucose 204 H 202 H 252 H (70-99) mg/dl Calcium (8.6-10.3) mg/dl Phosphorus (2.5-4.9) mg/dl Magnesium (1.7-2.4) mg/dl Babesia microti DNA PCR (Not Detected) 07/24/23 Range/Units 17:28 WBC (4.8-10.8) K/ul RBC (4.70-6.10) M/uL Hgb (14.0-18.0) g/dl Hct (42.0-52.0) % MCV (80.0-100.0) fL MCH (25.0-34.0) pg MCHC (32.0-36.0) g/dL RDW Std Deviation (36.4-46.3) fL RDW Coeff of Scott (11.5-14.5) % Plt Count (130-400) K/uL MPV (9.4-12.4) fL Sodium (136-145) mmol/L Potassium (3.5-5.1) mmol/L Chloride (98-107) mmol/L Carbon Dioxide (21-32) mmol/L Anion Gap (3-11) BUN (6-23) mg/dl Creatinine (0.6-1.4) mg/dl Est Cr Clr Drug Dosing ml/min Est GFR ( Amer) ml/min Est GFR (Non-Af Amer) ml/min BUN/Creatinine Ratio (10-20) Glucose (70-99(Fasting)) mg/dl POC Glucose (70-99) mg/dl Calcium (8.6-10.3) mg/dl Phosphorus (2.5-4.9) mg/dl Magnesium (1.7-2.4) mg/dl Babesia microti DNA PCR Not Detected (Not Detected) Medications Administered Current Inpatient Medications Acetaminophen (Acetaminophen 325 Mg Tab) 650 mg PO QID PRN PRN Reason: pain/fever Stop: 08/24/23 23:06 Apixaban (Apixaban 5 Mg Tablet) 5 mg PO BID DARIN Stop: 08/25/23 20:59 Last Admin: 07/30/23 20:03 Dose: 5 mg Dextrose (Dextrose 50% 50 Ml Syringe) 25 - 50 ml IV UD PRN; Protocol PRN Reason: Hypoglycemia Protocol Stop: 08/23/23 15:25 Furosemide (Furosemide Inj 20 Mg/2 Ml Vial) 20 mg IV Q8H DARIN Stop: 08/27/23 11:59 Last Admin: 07/29/23 12:12 Dose: 20 mg Glucagon (Glucagon For Inj 1 Mg Vial) 1 mg SQ UD PRN; Protocol PRN Reason: Hypoglycemia Protocol Stop: 08/23/23 15:25 Glucose (Glucose 40% Gel 15 Gm Tube) 15 - 30 gm PO UD PRN; Protocol PRN Reason: Hypoglycemia Protocol Stop: 08/23/23 15:25 Glucose (Glucose 10 Tab/Tube) 4 - 8 tab PO UD PRN; Protocol PRN Reason: Hypoglycemia Treatment Stop: 08/23/23 15:25 Cefepime HCl 1,000 mg/ Syringe 10 mls @ 5 mls/min IV Q12H DARIN; Protocol Stop: 08/03/23 11:59 Last Admin: 07/31/23 00:42 Dose: 5 mls/min Insulin Aspart (Insulin Aspart Per Unit Charge) 0 units SC TID@1130,1630,2100 [facility]; Protocol Stop: 08/25/23 16:29 Last Admin: 07/30/23 20:08 Dose: 3 units Insulin Aspart (Insulin Aspart Per Unit Charge) 0 units SC DAILY@0730 [facility] Stop: 08/29/23 07:29 Last Admin: 07/30/23 08:56 Dose: 11 units Insulin Glargine (Lantus Per Unit Charge) 23 units SC DAILY [facility]; Protocol Stop: 08/27/23 20:59 Last Admin: 07/30/23 08:57 Dose: 23 units Metoprolol Tartrate (Metoprolol Tartrate 25 Mg Tab) 25 mg PO BID DARIN Stop: 08/24/23 08:59 Last Admin: 07/30/23 20:02 Dose: 25 mg Metoprolol Tartrate (Metoprolol Tartrate 1 Mg/Ml Vial) 5 mg IV Q4 PRN PRN Reason: HR>120 Stop: 08/24/23 11:59 Miscellaneous (Carbohydrates For Hypoglycemia ) 15 - 30 gm PO UD PRN PRN Reason: Hypoglycemia Protocol Stop: 08/23/23 15:25 Last Admin: 07/28/23 20:00 Dose: 15 gm Miscellaneous Information (Pharmacy Glycemic Mgmt Consult) 1 each N/A UD PRN PRN Reason: Consult Stop: 08/23/23 19:41 Pantoprazole Sodium (Pantoprazole 40 Mg Tab) 40 mg PO DAILY [facility] Stop: 08/24/23 08:59 Last Admin: 07/30/23 08:56 Dose: 40 mg Potassium Chloride (Potassium Chloride Crtab 20 Meq Tabcr) 20 meq PO BID DARIN Stop: 08/27/23 11:59 Last Admin: 07/29/23 08:58 Dose: 20 meq Tramadol HCl (Tramadol Hcl 50 Mg Tablet) 25 - 50 mg PO Q4H PRN PRN Reason: Pain Stop: 08/25/23 05:21 Last Admin: 07/31/23 00:44 Dose: 50 mg
[2023-07-31] MEDS: APIXABAN 5 MG TABLET PO SCH ×2 (08:03→21:22)
[2023-07-31] MEDS: PANTOprazole 40 MG TAB PO SCH (08:04)
[2023-07-31] MEDS: METOPROLOL TARTRATE 25 MG TAB PO SCH ×2 (08:04→21:22)
[2023-07-31] MEDS: INSULIN ASPART PER UNIT CHARGE SC SCH ×4 (08:10→21:22)
[2023-07-31] MEDS: LANTUS PER UNIT CHARGE SC SCH (08:10)
--- NOTE | 2023-07-31 08:42 | XRay Report ---
XR chest 1V portable CLINICAL HISTORY: HF pt gaining wt > check plm vasc congestion TECHNIQUE: Single frontal radiograph of the chest was obtained. Comparison: Comparison is made to chest radiograph 07/24/2023 FINDINGS: No lines and tubes are seen. Cardiomegaly is noted. The lungs are clear. No evidence of pleural effus ion or pneumothorax. IMPRESSION: Cardiomegaly without significant pulmonary vascular congestion. ACT 112: Negative or not required by law. Electronically signed by: Anderson Serra M.D. 07/31/2023 8:40 AM
[2023-07-31] MEDS ORDERED: LANTUS PER UNIT CHARGE SC SCH (09:00)
[2023-07-31] MEDS: FUROSEMIDE INJ 20 MG/2 ML VIAL IV SCH ×3 (09:14→21:23)
--- NOTE | 2023-07-31 11:53 | Pharmacy Report ---
Pharmacy Glycemic Short Note 2 - Date of Service July 31, 2023 - Glycemic Short BSG Results (Last 24 hours): 07/30/23 07/30/23 07/31/23 16:09 20:03 05:38 Glucose 207 H POC Glucose 202 H 204 H 07/31/23 07/31/23 07:14 11:13 Glucose POC Glucose 202 H 229 H OUTPATIENT ANTIDIABETIC REGIMEN: * Xultophy 20 units SC HS * Novolog 5 units SC AC * HbA1c: 10.7% (04/29/23) ASSESSMENT: 07/31: * BSGs elevated the last 24h: [phone]/dL. Received 23 units of basal and 42 units of bolus insulin yesterday. * Further titrate basal, 30 units. Novolog carb ratio tightened at breakfast and lunch. Continue with looser parameters at dinner and HS. 07/30: * BSGs 665-41-238-252mg/dL the last 24h. Received 20 units of basal and 42 units of bolus insulin yesterday. * Other stressors stable. * Titrate basal given elevated fasting to 23 units. Novolog further tightened at breakfast. Will loosen lunch, dinner, HS parameters given tendency to go low at night (continue max 15 units) 07/29: * BSGs [phone]/dl the last 24h. Received no basal and 38 units of bolus insulin yesterday. * Stressors stable. * Given low BSGs yesterday at dinner, Lantus was held. Resumed this AM at 20 units as fasting was 191mg/dL. Novolog loosened back to 20/6 today and again BSG is high at lunch. Will use a tighter carb ratio tomorrow at breakfast with looser ratio at all other times (max 15 units at lunch, dinner and HS). 07/28: * BSGs [phone]/dL the last 24h. Received 15 units of basal and 25 units of bolus insulin yesterday. * Tolerating diet, continues on cefepime. * Increase basal to 20 units given elevated fasting. Tighten novolog for improved prandial coverage and improved PO intake. 07/27: * BSGs [phone]/dL the last 24h. Received 12 units of basal and 11 units of bolus insulin yesterday. * Diet reinitiated and continues on antibiotics. * Increase basal to 15 units at HS given slightly elevated fasting. Novolog parameters tightened with advancement of diet. 07/26: * Selvin received 59 units of insulin yesterday, 40 units basal + 19 units bolus. BSGs were: [phone] mg/dL. * Fasting BSG was below goal at 84 mg/dL this AM. Will reduce basal significantly given NPO and dextrose discontinued. Will loosen Novolog as well while NPO. 07/25: * 77 yo M admitted on 07/24/23 secondary to HHS/CESAR/Afib/Resp failure. Pharmacy has been consulted to assist with inpatient glycemic management. Patient is a Type 2 diabetic as an outpatient. Please refer to outpatient regimen and most recent HbA1c above. * BSG was 768 mg/dL upon arrival yesterday. Started on an insulin drip. Received ~ 62 units via drip over a 12 hour period. * Will give a dose of basal insulin this morning in hopes of transitioning. Bundle Person okay with transitioning today. * RN shut insulin drip off right after Lantus administration without overlap due to compatibility issues. Discontinued dextrose and potassium containing fluids. Bundle Person would like 1/2 NS running at 75 mL/hr. * Remains NPO. No enteral nutrition yet. Cefepime for infection. Amiodarone and Heparin drips running. * Will start Novolog q4 for time being. PLAN FOR INPATIENT GLYCEMIC CONTROL: * Basal insulin * Lantus 30 units SC daily * Bolus insulin * NovoLog per scale ACHS * Goal Range: Low 110 mg/dL - High 140 mg/dL * Correction Factor: 15mg/dL/unit (breakfast), 20 mg/dL/unit (lunch), 25mg/dL/unit (dinner/ HS) * Nutritional / Prandial insulin per carb ratio of 1 unit per 4 grams (breakfast), 6 grams (lunch), 7 grams (dinner/HS) CHO consumed
--- NOTE | 2023-07-31 17:20 | Nephrology Progress Note ---
Date of Service July 31, 2023 Assessment & Plan (1) CESAR (acute kidney injury): Plan: today basically plateau'd stage 3 nonoliguric CESAR from ischemic ATN in setting of gram-negative bacteremia; had improved initially then stalled w/ resuming diuretics. Creatinine on admission was 3.2 from a normal baseline of 1.0. today cr increased from 2.4 yesterday to 2.6 today w/ massive polyuria, suggestive of recovery phase of ATN in setting of diuretics. Patient is on antibiotics. Electrolytes are stable no indication for dialysis. DKA has resolved; no longer on insulin gtt. On Lasix 80/40 as an outpatient but not likely he was taking as prescribed -Avoid hypotension. Avoid contrast or other nephrotoxins. >> intake and outtake have not always been accurately charted and nursing aware/working on this Standing weight today 80.1 from 77.7 yesterday ->>>>Will for today resume lasix and K at lower doses >> 10 mg tid lasix and 20 mEq bid K startrign this PM -recheck BMP in AM -Continue strict intake and outtake and daily standing weight to help eval volume status -for now no FR >> history of obstructive uropathy and failed or near failed voiding trial prior to admission; so would not remove yee unles urology OK's (2) Bacteremia: Plan: arriaga sensitive Serratia marescens bacteremia w/ presume source >> 07/26 cxs negative at 48 hrs and not further updated today so far. Continue cefepime renally dosed for current GFR; plan to change to bactrim at d/c per ID Admission and Anticipated Discharge Date Admission Date: July 24, 2023 Subjective no interval events clnically. seen on early AM rounds. notes he feels more sob today, mroe short. also c/o sore butt from sitting in bed. Review of Systems Review of Systems: All systems reviewed & are unremarkable except as noted in Subjective Physical Exam Constitutional: well developed, well nourished and + frail appearing; no acute distress Eyes: EOM intact bilaterally ENMT: Ears: + hearing impairment; no external ear abnormality Nose: no external nose abnormality Mouth: + dry oral mucous membranes Neck: no nuchal rigidity Respiratory: normal respiratory effort and + labored breathing (Slightly more prominent today) Auscultation: + diminished lung sounds and + crackles (bibasilar) Cardiovascular: Rate/Rhythm: regular rate and regular rhythm Extremities: + edema (2+ BL ankle) Gastrointestinal (Abdomen): Inspection/Auscultation: normal bowel sounds Percussion/Palpation: abdomen soft; abdomen nontender Musculoskeletal: Extremities: strength 5/5 throughout Skin: no rashes, warm and dry Results & Data Vital Signs (Past 12 Hours) Vital Signs Temp Pulse Pulse Resp BP Pulse Ox O2 Del Method 07/31/23 16:05 36.6 C 60 17 115/61 98 Room Air 07/31/23 11:57 36.6 C 65 18 144/56 H 98 Room Air 07/31/23 08:00 63 07/31/23 07:58 36.6 C 65 18 127/68 96 Room Air Laboratory Results 07/31/23 05:38 07/31/23 05:38
--- OUTSIDE RECORDS SUMMARY | 2023-07-31 19:40 | External Medical Summary | Summary of Care ---
Author Name Unknown Organization [facility] Address [address] [facility] [place] [address] Phone [phone] Care Team Providers Care Auto Garage Mechanic Name Role Phone Rylan Mariar Sophy Primary Care Provider Reason for Visit * Reason Comments Dosage Adjustment In Person (Anticoag Cl inic) Diabetes Follow-Up * Evaluate & Treat - Unlimited Visits (Within 10 days (routine)) - Authorized Specialty Diagnoses / Procedures Referred By Collin leigh Referred To Contact Pharmacist / Pharmacy Diagnoses Type 2 diabetes mellitus with hemoglobin A1c goal of less than 8.0% ([facility]) Michael Hunt DO [address] [place] [address] Referral ID Status Reason Start Date Expiration Date Visits Requested Visits Authorized [id number] Authorized Specialty Services Required 05/08/2023 99 99 Encounter Details Date Type Department Care Team Description 05/27/2023 Office Visit Pharmacy, [facility] [address] [address] [facility] [address] [place] [address] [address] Type 2 diabetes mellitus with hemoglobin A1c goal of less than 8.0% ([facility])* Allergies Active Allergy Reactions Severity Noted Date Comments Lisinopril Edema face/lips/tongue High 04/05/2018 documented as of this encounter (statuses as of 05/27/2023) Medications Medication Sig Dispensed Refills Start Date End Date Status ONETOUCH ULTRA BLUE STRP USE TO CHECK GLUCOSE 4 TIMES DAILY 100 Strip 0 7 Active ONETOUCH DELICA LANCETS 33G MISC USE ONE TO CHECK GLUCOSE 4 TIMES DAILY 100 Each 0 7 Active Sildenafil Citrate (VIAGRA) 50 MG TabletIndications:Im potence of organic origin Take 1 Tab by mouth as needed for Erectile Dysfunction. 5 Tab 6 7 Active Glucose Blood (ONETOUCH VERIO) STRP Use up to 4 times a day E11.9 300 Strip 3 7 Active Fluorouracil 5 % External Cream (Efudex) Apply to Scalp, ears, and temples twice a day for three weeks. 40 g 1 1 Active Insulin Syringe-Needle U-100 30G X 5/16" 0.3 MLIndications:Type 2 diabetes mellitus with polyneuropathy (HCC),Type 2 diabetes mellitus with hemoglobin A1c goal of less than 8.0% (HCC) Use up to 4 x a day for insulin dosing E11.9 3 Each 1 1 Active FreeStyle Rose Marie 2 Sensor Test blood sugars four times daily 2 Each 11 2 Active FreeStyle Rose Marie 2 Grant Device Test blood sugars four times daily 1 Each 0 2 Active Insulin Aspart 100 UNIT/ML Injection Solution 5 Units. Pt takes 5 to 6 units before meals 0 2 Active Gentamicin Sulfate 0.1 % External OintmentIndications: Secondary impetiginization Apply to wounds on hands twice daily 15 g 1 3 Active Cephalexin 500 MG Oral Capsule (Keflex) Take 1 Capsule by mouth in the morning and 1 Capsule at noon and 1 Capsule before bedtime. 0 3 Active Silver sulfADIAZINE 1 % External Cream (Silvadene) Apply to wounds on hands 100 g 1 3 Active Ciprofloxacin HCl 500 MG Oral Tablet (Cipro) Take 1 Tablet by mouth in the morning and 1 Tablet before bedtime. 14 Tablet 0 3 Active Additional Information Patient not taking.Reported on 05/07/2023 Pen Webster 32G X 4 MMIndications:Type 2 diabetes mellitus with hemoglobin A1c goal of less than 8.0% ([facility]) Use as directed. Use to inject insulin up to 4 times daily. 400 Each 3 3 Active Pen Webster 32G X 4 MM Use as directed. Use to inject insulin up to 4 times daily. 30 Each 0 3 Active Doxycycline Hyclate 100 MG Oral Tablet Take 1 Tablet by mouth in the morning and 1 Tablet before bedtime. 0 3 Active Metoprolol Tartrate 25 MG Oral Tablet (Lopressor)Indicatio ns:Chronic atrial fibrillation (HCC) TAKE ONE TABLET BY MOUTH TWICE A DAY -- IN THE MORNING AND BEFORE BEDTIME 180 Tablet 1 3 04/28/20 24 Active metFORMIN HCl ER 500 MG Oral Tablet Extended Release 24 Hour (Glucophage XR)Indications:Type 2 diabetes mellitus with diabetic neuropathy, with long-term current use of insulin (HCC) TAKE TWO TABLETS BY MOUTH EVERY MORNING 180 Tablet 3 3 02/26/20 24 Active NovoLOG FlexPen 100 UNIT/ML Subcutaneous Solution Pen-injector INJECT 5 UNITS UNDER THE SKIN THREE TIMES DAILY WITH MEALS 15 mL 3 3 01/15/20 24 Active Tamsulosin HCl 0.4 MG Oral Capsule (Flomax)Indications: BPH with obstruction/lower urinary tract symptoms TAKE ONE CAPSULE BY MOUTH EVERY MORNING 100 Capsule 2 3 01/01/20 24 Active Atorvastatin Calcium 40 MG Oral Tablet (Lipitor)Indications :Dyslipidemia TAKE ONE TABLET BY MOUTH EVERY DAY 90 Tablet 1 3 01/01/20 24 Active Eliquis 5 MG Oral TabletIndications:Ch ronic atrial fibrillation (HCC) TAKE ONE TABLET BY MOUTH TWICE A DAY; MORNING AND BEFORE BEDTIME 180 Tablet 3 3 12/29/19 24 Active Furosemide 40 MG Oral Tablet (Lasix) TAKE TWO TABLETS BY MOUTH EVERY MORNING AND ONE TABLET IN THE AFTERNOON 270 Tablet 3 3 11/17/19 24 Active Xultophy 100-3.6 UNIT-MG/ML Subcutaneous Solution Pen-injector (Insulin Degludec-Liraglutide ) Inject 20 Units under the skin at bedtime. 15 mL 5 3 Active Insulin Glargine Solostar 100 UNIT/ML Subcutaneous Solution Pen-injectorIndicati ons:Type 2 diabetes mellitus with hemoglobin A1c goal of less than 8.0% (HCC) Inject 12 units subcutaneously at bedtime 15 mL 3 3 05/27/20 23 Discontin ued(Medic ation/Dos e Changed) documented as of this encounter (statuses as of 05/27/2023) Active Problems Problem Noted Date Medical home patient encounter 3 Hypertensive heart disease with chronic diastolic congestive heart failure 01/20/2023 Chronic heart failure with preserved eje ction fraction 01/06/2023 Nonrheumatic aortic valve stenosis 11/21 Cellulitis of toe of left foot 2 Last Assessment & Plan: Wound culture taken Start keflex 500 mg QID x 7 days Wound care clinic tomorrow Unsteady gait when walking 05/27/2022 Last Assessment & Plan: PT/OT eval ordered/faxed Overweight (BMI 25.0-29.9) 05/22/2022 Hoarding behavior 03/20/2022 Paroxysmal atrial fibrillation 2 Last Assessment & Plan: Rate controlled Continue metoprolol and eliquis Moderate aortic stenosis 03/20/2022 Diabetic ulcer of toe of rig ht foot associated with type 2 diabetes mellitus, with fat layer exposed 01/09/2022 Atherosclerosis of [place] coronary arter y without angina pectoris 01/09/2022 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 Readings usually in the 100's Continue Lantus 20 u HS, Novolog 5 u TID with meals Foot deformity, bilateral 10/21/2018 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 Last Assessment & Plan: BP at goal Continue lasix 40 mg daily Dyslipidemia 10/15/2009 Overview: Per Lipid Taxonomy. Type 2 diabetes mellitus with hemoglobin A1c goal of less than 8.0% 08/16/2009 Overview: Modified per Diabetes protocol #14. ICD-10 update of inactive term Last Assessment & Plan: BS have been hitting lows due to extra novolog Encouraged pt to stick to novolog 5 u TID with meals, metformin 1000 mg BID, Lantus 20 u at night. Will f/u with MTM to discuss Mixed conductive and sensori neural hearing loss of right ear with restricted hearing of left ear Overview: right documented as of this encounter (statuses as of 05/27/2023) Resolved Problems Problem Noted Date Resolved Date Heart failure 06/05/2022 01/20/2023 Puncture wound of right foot 05/26/2022 Overview: With associated cellulitis. Inpt treatment 05/16-05/18 Last Assessment & Plan: Healing well Going to wound care Blistering of skin 04/25/2022 05/22/2022 Last Assessment & Plan: Pt denies burning hands or smoking. He is not picking blisters, no rash on other parts of body, No pain or s/s infection. Covering fingers. Not on palms--not itchy. Will send derm ask a doc for advice. Cellulitis of right lower extremity 04/25/2022 05/22/2022 Last Assessment & Plan: Concern for early cellulitis. See photos with erythema R lower leg. Will start cephalexin. Advised to call with worsening symptoms. Will plan nurse or [facility] provider telemedicine recheck visit one week to assess healing. Need for prophylactic vaccin ation with tetanus-diphtheria (Td) 04/15/2022 05/22/2022 Wound of right leg 03/20/2022 05/22/2022 Mixed obsessional thoughts and acts 11/21/2019 01/09/2022 Need for prophylactic vaccin ation and inoculation against influenza 10/21/2018 02/09/2020 Overview: Acute. DM type 2 nursing care encounter 10/21/2018 03/13/2020 Neurogenic ulcer of foot 05/19/2017 017 HTN, GOAL BELOW 140/80 06/21/2012 6 Overview: Per HTN Protocol #27. OBESITY, BMI 30-34 (SEE ACTUAL BMI) 01/24/2010 03/13/2020 Overview: Per Obesity Taxonomy HTN, GOAL BELOW 130/80 11/28/2009 2 Overview: Per HTN Taxonomy. DM type 2, not at goal 04/05/2009 9 Overview: Modified per Diabetes protocol #14. Dyslipidemia, goal LDL below 160 04/05/2009 10/15/2009 Overview: Per Lipid Taxonomy. Obesity, BMI not known 04/04/2009 0 Overview: Per Obesity Taxonomy ADVANCE DIRECTIVE INFORMATION 07/15/2006 Overview: Pt took booklet. Historical. AC SEROUS OTITIS MEDIA 07/15/2006 8 HTN, goal below 140/90 12/26/2004 0 Overview: Per HTN Taxonomy. 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 Allergic rhinitis 10/21/2018 Dysfunction of eustachian tube 1 12/22/2017 documented as of this encounter (statuses as of 05/27/2023) Immunizations Name Administration Dates Next Due COVID-19 mRNA, LNP-s, No Pre serve, 2-Dose Series (Moderna) 03/24/2021,02/22/2021 COVID-19, LNP-s, No Preserve , Ministerio-sucrose, Ages 12+ (Pfizer) 02/25/2022 Covid-19, Mrna, Lnp-s, Pf, B ivalent, 30 Mcg, IM, 12 yrs and above (Pfizer) 11/17/2022 Pneumococcal Conjugate Vacc, 13 Valent (Prevnar) 12/24/2015 Pneumococcal Polysaccharide PPV23 (Pneumovax) 07/23/2011 Seasonal Influenza Virus Vac cine, Unspecified Formulation 08/10/2021,08/03/2020,08/22/2019,10/21,09/10/2017,09/16/2016,2013 ,08/03/2012,07/23/2011,09/10/2010,12/04,08/06/2009,11/01/2008 Seasonal Influenza, Quadriva lent Hd (Fluzone Hd) 08/05/2022,08/10/2021 Seasonal Influenza, Quadriva lent, No Preserve, 6 Mons & Above, IM 08/03/2020,10/21/2018,09/10/2017 Seasonal Influenza, Quadriva lent, No Preserve, IM 09/16/2016,11/22/2015 Seasonal Influenza, Split, I IV3, With Preserve, Inj 08/15/2014,2013,08/03/2012,07/23,09/10/2010,12/25/2009,08/06/2009 ,11/01/2008 Seasonal Influenza, Trivalen t, Adjuvanted, 65+ yrs 08/22/2019 TDAP (age 10 and older)(Boostrix) 02/03/2023 TDAP (age 11 and older)(Adacel) 10/21/2011 Varicella Zoster Vaccine (Adult) 08/03/2012 Zoster Vaccine Recombinant (Shingrix) 03/13/2020 ,11/21/2019 documented as of this encounter Social History Tobacco Use Types Packs/Day Years Used Date Smoking Tobacco: Former Cigarettes Q uit: 11/02/1980 Passive Smoke Exposure: Never Smokeless Tobacco: Never Alcohol Use Standard Drinks/Week Comments Yes 0 (1 standard drink = 0.6 oz pure alcohol) As of 2.17.2006, the last noted alcohol intake was 1 ounces. Food Insecurity Answer Date Recorded Within the past 12 months, y ou worried that your food would run out before you got money to buy more. Never true 01/28/2023 Within the past 12 months, t he food you bought just didn't last and you didn't have money to get more. Never true 01/28/2023 Sex Assigned at Date Recorded Male 11/21/2019 11:44 AM EST Job Start Date Occupation Industry Not on file Not on file Not on file documented as of this encounter Progress Notes * Samina Blunt, [facility] - 05/27/2023 12:56 PM EDT Images from the original note were not included. Medication Therapy Disease [facility] - Diabetes Management Progress Note Selvin Sebastian, identified by name and date of , is a 77 year old male being seen for diabetes management/education. Patient presents for return diabetic visit. DIABETES: Current diabetic medications: Lantus 20 units QHS Humalog 6 untis with meals-usually just with breakfast Metformin ER 500 mg 2 tabs AM Medication Injection Site: Abdomen Lifestyle: Diet: unchanged Glucose Review/SMBG: Readings obtained from patient device Hypoglycemia: Does your blood sugar go below 70 mg/dL? Yes Hyperglycemia symptoms present: none Recent Labs Units 05/19/23 1525 01/27/23 1101 09/01/22 1442 HEMOGLOBIN A1C - [facility] % 9.4* 9.2* 9.0* Recent Labs Units 05/19/23 1525 01/27/23 1101 11/20/22 1157 ESTIMATED GLOMERULAR FILTRATION RATE - [facility] mL/min 54* 63 59* CREATININE - [facility] mg/dL 1.4* 1.2 1.3* HYPERTENSION: Patient on ACEi/ARB: no, Lisinopril ADR BP Readings from Last 3 Encounters: 05/11/23 106/60 02/18/23 122/60 02/03/23 116/66 Blood pressure at goal: yes HYPERLIPIDEMIA: Patient is taking moderate or high intensity statin: yes HEALTH MAINTENANCE REVIEW: There are no preventive care reminders to display for this patient. ASSESSMENT & PLAN: ICD-10-CM 1. Type 2 diabetes mellitus with hemoglobin A1c goal of less than 8.0% (HCC) E11.9 BG Readings - Blood sugars uncontrolled. Medications - Reviewed current regimen, patient is adherent to regimen. Diet, Exercise, Lifestyle - No significant lifestyle changes since last visit. Discussed with patient . Patient is agreeable to CGM Patient aware to contact clinic if any hypoglycemia before next visit. MEDICATION CHANGES: yes, see below; preferred pharmacy Diabetic Medications: STOP Lantus 20 units QHS Humalog 6 untis with meals-usually just with breakfast Metformin ER 500 mg 2 tabs AM START Xultofy 20 units HEALTH MAINTENANCE INTERVENTIONS: Labs: Up to Date Immunizations: Up to Date Foot Exam: Up to Date Eye Exam: Up to Date Annual Wellness Visit: Up to Date FOLLOW UP: Return to clinic in 12 weeks 09/03/2023 Russel Sue PharmD Clinical Pharmacist [facility] 05/27/2023 1:55 PM Samina Blunt RPh Clinical Pharmacist - Police Crime Scene Technician [facility] 05/27/2023, 12:56 PM documented in this encounter Plan of Treatment Upcoming Encounters Date Type Specialty Care Team Description 06/26/2023 Nutrition Services Nutrition Services Dinah Mohamud RDN [address] [place] [id number] 06/26/2023 Office Visit Podiatry Kylie Burroughs DPM [address] [place] [address] 07/13/2023 Office Visit Cardiology Del Díaz Jr., DO 08/05/2023 Office Visit Otolaryngology Jose Antonio Su MD [address] [place], [place] [id number] 09/03/2023 Office Visit Pharmacy [facility]a [address] [place] [address] 09/03/2023 Office Visit Family Medicine James Maria DO [address] [place] [address] 09/11/2023 Office Visit Dermatology Lily Piedra MD 02/08/2024 Office Visit Family Medicine James Maria, DO [address] [place] [address] Scheduled Procedures Name Priority Associated Diagnoses Date/Ti me COLONOSCOPY FLEXIBLE PROXIMA L DIAGNOSTIC Recall Encounter for screening colonoscopy Health Maintenance Due Date Last Done Comments Influenza Vaccine (FLU shot) (#1) 2023 08/05/2022, 08/10/2021, 08/10/2021, Additional history exists B-12 09/01/2023 09/01/2022, 11/02, 01/11/2018 DIABETES-EYE EXAM 09/01/2023 09/01/2022, , 12/15/2019, Additional history exists DIABETES-FOOT EXAM 09/01/2023 09/01/2022, 0 02/28/2021, 10/13/2019, Additional history exists HbA1c 11/19/2023 05/19/2023, 01/01, 09/01/2022, Additional history exists Albumin/Creatinine Ratio 01/28/2024 023, 06/05/2022, 03/13/2020, Additional history exists Depression Screening, Annual for Pts 12 and Over 02/19/2024 02/18/2023 GFR 05/19/2024 05/19/2023, 05/0 04/2023, 01/27/2023, Additional history exists DTaP,Tdap,and Td Vaccines (3 - Td or Tdap) 02/03/2033 02/03/2023, 10/21/2011, 11/09/2003 Pneumococcal Vaccine: 65+ Years Completed 12/24/2015, 07/23/2011 Zoster Vaccines Completed 03/13/2020, 11/03, 08/03/2012 COVID-19 Vaccine Completed 11/17/2022, , 03/24/2021, Additional history exists GARDASIL-HPV IMMUNIZATION SERIES Aged Out No longer eligible based on patient's age to complete this topic Hepatitis B Aged Out No longer eligi ble based on patient's age to complete this topic MENINGOCOCCAL (MENACTRA/MENVEO) Aged Out No longer eligible based on patient's age to complete this topic documented as of this encounter Medical Devices Not on filedocumented as of this encounter Visit Diagnoses Diagnosis Type 2 diabetes mellitus with hemoglobin A1c goal of less than 8.0% ([facility])- Primary documented in this encounter Advance Directives Healthcare Agents on File Name Relationship Healthcare [facility] Communication Farhana Sebastian Spouse Health Care Agent Care Teams Auto Garage Mechanic Relationship Specialty Start Date End Date James Maria DO [address] [place] [id number] PCP - General Family Medicine 06/07/18 documented as of this encounter
--- OUTSIDE RECORDS SUMMARY | 2023-07-31 19:40 | External Medical Summary ---
Author Name UNSPECIFIED Address Unknown Organization [facility] History of Encounters Reason for Assessment: Discharge from [facility] Inpatient Facility where the patient bee n admitted: No inpatient facility admission Discharge Disposition: Other Unknown Functional Assessment When Dyspneic: When walking more th an 20 feet, climbing stairs Bowel Incontinence Frequency: Very rarel y or never has bowel incontinence Cognitive and Behavioral and Psychiatric Symptoms: None Current Ability: Bathing: able to partic ipate in bathing self in shower or tub, but requires presence of another person throughout the bath for assistance or supervision. Current Ability: Ambulation: Requires us e of a two-handed device (e.g., walker or crutches) to walk alone on a level surface and/or requires human supervision or assistance to negotiate stairs or steps or uneven surfaces. Current: Management Of Oral Medications: Able to take medication(s) at the correct times if: (a) individual dosages are prepared in advance by another person; OR (b) another person develops a drug diary or chart
--- OUTSIDE RECORDS SUMMARY | 2023-07-31 19:40 | External Medical Summary | Summary of Care ---
Author Name Unknown Organization [facility] Address [address] [place] [address] Phone [phone] Care Team Providers Care Fish Pitcher Name Role Phone Rylan Mariar Sophy Primary Care Provider Reason for Visit * Reason Comments Follow Up Routine foot care Encounter Details Date Type Department Care Team Description 06/26/2023 Office Visit Podiatry [facility] [address] [facility] [place] [address] Kylie Burroughs, DPMarga [address] [facility], [place] [id number] DM type 2 with diabetic peripheral neuropathy (HCC)*; Onychomycosis Allergies Active Allergy Reactions Severity Noted Date Comments Lisinopril Edema face/lips/tongue High 04/05/2018 documented as of this encounter (statuses as of 06/26/2023) Medications Medication Sig Dispensed Refills Start Date End Date Status ONETOUCH ULTRA BLUE STRP USE TO CHECK GLUCOSE 4 TIMES DAILY 100 Strip 0 11/13/2016 Active ONETOUCH DELICA LANCETS 33G MISC USE ONE TO CHECK GLUCOSE 4 TIMES DAILY 100 Each 0 11/13/2016 Active Sildenafil Citrate (VIAGRA) 50 MG TabletIndications:Imp otence of organic origin Take 1 Tab by mouth as needed for Erectile Dysfunction. 5 Tab 6 08/24/2017 Active Glucose Blood (ONETOUCH VERIO) STRP Use up to 4 times a day E11.9 300 Strip 3 08/24/2017 Active Fluorouracil 5 % External Cream (Efudex) Apply to Scalp, ears, and temples twice a day for three weeks. 40 g 1 07/05/2021 Active Insulin Syringe-Needle U-100 30G X 5/16" 0.3 MLIndications:Type 2 diabetes mellitus with polyneuropathy (HCC),Type 2 diabetes mellitus with hemoglobin A1c goal of less than 8.0% (HCC) Use up to 4 x a day for insulin dosing E11.9 3 Each 1 09/05/2021 Active FreeStyle Rose Marie 2 Sensor Test blood sugars four times daily 2 Each 11 12/27/2021 Active FreeStyle Rose Marie 2 [place] Device Test blood sugars four times daily 1 Each 0 12/27/2021 Active Insulin Aspart 100 UNIT/ML Injection Solution 5 Units. Pt takes 5 to 6 units before meals 0 05/16/2022 Active Gentamicin Sulfate 0.1 % External OintmentIndications:S econdary impetiginization Apply to wounds on hands twice daily 15 g 1 01/28/2023 Active Cephalexin 500 MG Oral Capsule (Keflex) Take 1 Capsule by mouth in the morning and 1 Capsule at noon and 1 Capsule before bedtime. 0 11/24/2022 Active Silver sulfADIAZINE 1 % External Cream (Silvadene) Apply to wounds on hands 100 g 1 04/01/2023 Active Ciprofloxacin HCl 500 MG Oral Tablet (Cipro) Take 1 Tablet by mouth in the morning and 1 Tablet before bedtime. 14 Tablet 0 04/01/2023 Active Additional Information Patient not taking.Reported on 05/07/2023 Pen Morrison 32G X 4 MMIndications:Type 2 diabetes mellitus with hemoglobin A1c goal of less than 8.0% ([facility]) Use as directed. Use to inject insulin up to 4 times daily. 400 Each 3 05/06/2023 Active Pen Morrison 32G X 4 MM Use as directed. Use to inject insulin up to 4 times daily. 30 Each 0 05/06/2023 Active Doxycycline Hyclate 100 MG Oral Tablet Take 1 Tablet by mouth in the morning and 1 Tablet before bedtime. 0 05/05/2023 Active Metoprolol Tartrate 25 MG Oral Tablet (Lopressor)Indication s:Chronic atrial fibrillation (HCC) TAKE ONE TABLET BY MOUTH TWICE A DAY -- IN THE MORNING AND BEFORE BEDTIME 180 Tablet 1 04/29/2023 4 Active metFORMIN HCl ER 500 MG Oral Tablet Extended Release 24 Hour (Glucophage XR)Indications:Type 2 diabetes mellitus with diabetic neuropathy, with long-term current use of insulin (HCC) TAKE TWO TABLETS BY MOUTH EVERY MORNING 180 Tablet 3 02/26/2023 4 Active NovoLOG FlexPen 100 UNIT/ML Subcutaneous Solution Pen-injector INJECT 5 UNITS UNDER THE SKIN THREE TIMES DAILY WITH MEALS 15 mL 3 01/15/2023 4 Active Tamsulosin HCl 0.4 MG Oral Capsule (Flomax)Indications:B PH with obstruction/lower urinary tract symptoms TAKE ONE CAPSULE BY MOUTH EVERY MORNING 100 Capsule 2 01/01/2023 4 Active Atorvastatin Calcium 40 MG Oral Tablet (Lipitor)Indications: Dyslipidemia TAKE ONE TABLET BY MOUTH EVERY DAY 90 Tablet 1 01/01/2023 4 Active Eliquis 5 MG Oral TabletIndications:Chr onic atrial fibrillation (HCC) TAKE ONE TABLET BY MOUTH TWICE A DAY; MORNING AND BEFORE BEDTIME 180 Tablet 3 12/29/2022 4 Active Furosemide 40 MG Oral Tablet (Lasix) TAKE TWO TABLETS BY MOUTH EVERY MORNING AND ONE TABLET IN THE AFTERNOON 270 Tablet 3 11/17/2022 4 Active Xultophy 100-3.6 UNIT-MG/ML Subcutaneous Solution Pen-injector (Insulin Degludec-Liraglutide) Inject 20 Units under the skin at bedtime. 15 mL 5 05/27/2023 Active documented as of this encounter (statuses as of 06/26/2023) Active Problems Problem Noted Date Medical home [...] 05/22/2022 Hoarding behavior 03/20/2022 Paroxysmal atrial fibrillation Last Assessment & Plan: Rate controlled Continue metoprolol and eliquis Moderate aortic stenosis 03/20/2022 Diabetic ulcer of toe of rig ht foot associated with type 2 diabetes mellitus, with fat layer exposed 01/09/2022 Atherosclerosis of [place] coronary arter y without angina pectoris 01/09/2022 [...] as of this encounter (statuses as of 06/26/2023) Resolved Problems Problem Noted Date Resolved Date [...] as of this encounter (statuses as of 06/26/2023) Immunizations Name Administration Dates Next Due COVID-19 [...] cine, Unspecified Formulation 08/10/2021,08/03/2020,08/22/2019,10/21,09/10/2017,09/16/2016,2013 ,08/03/2012,07/23/2011,09/10/2010,12/04,08/06/2009,11/01/2008 Seasonal Influenza, PF, 6 mo ns & Above, IM , (Flulaval) 08/03/2020,10/21/2018,09/10/2017 Seasonal Influenza, Quadriva lent Hd (Fluzone Hd) 08/05/2022,08/10/2021 Seasonal Influenza, Quadriva lent, No Preserve, IM [...] as of this encounter Progress Notes * Kylie Burroughs DPM - 06/26/2023 2:40 PM EDT Podiatry Established Note [facility] Name: Selvin Sebastian : 1945 Date: 06/26/2023 REASON FOR VISIT: diabetic foot care SUBJECTIVE: This patient is a 77 year old male who presents today accompanied by his . He is very hard of hearing and she helps communicate. 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 He is unable totrim his toenails which are elongated, thickened. He has tubi presser hand compression sleeves on and reports new wounds. She has yet to call [facility] wound care of which he typically goes to. They have no concerns though. 02/03/2023 was last visit with PCP James Maria DO. He also saw Dr. Rudd on 05/11/23 for hospital discharge follow up. 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 Inpt treatment 05/16-05/18 Sensorineural hearing loss, unilateral 2003 left ALLERGIES: Review of patient's allergies indicates: Allergen Reactions Lisinopril Edema face/lips/tongue REVIEW OF SYSTEMS: CONSTITUTIONAL: No change in weight, No fatigue and No fevers, sweats, or chills FOCUSED PODIATRIC EXAM: Vascular: Pedal pulses not assessed due to compression wraps. Capillary refill time is within normal limits to all toes. No warmth. Neurologic: No hypersensitivity. Musculoskeletal: He denies pain with palpation of either foot. Dermatological: Toenails 1-5 bilaterally are thickened and elongated as well as discolored. No interdigital changes. Chronic appearing discoloration documented in past note. Difficult to assess due to compression wraps. No visible open wounds. Class Findings for Routine Foot Care Class A Findings: None Class B Findings: Advanced trophic changes (at least three of the following): hair growth (decreaseor absence), nail changes (thickening) and pigmentary changes (discoloration) Class C Findings: Edema and Paresthesia (abnormal spontaneous sensations in feet) Modifier: Q9 - 1 Class B Finding and 2 Class C Findings DIAGNOSTIC STUDIES: None ASSESSMENT: 1. DM type 2 with diabetic peripheral neuropathy (HCC) 2. Onychomycosis TA T1 T2 T3 T4 T5 T6 T7 T8 T9 PLAN: Procedure: After mild cleansing and drying of feet, toenails 1-5 bilaterally were manually and mechanically debrided without incident. A nail splitter was used to remove all incurvating edges. A nail sticker wasused to trim nail to appropriate length. An electrical bur was used in a side to side motion to reduce nail thickness, hypertrophic growth, and to smooth all edges. Patient tolerated well. They noted improvement following procedure. Follow up: 3 months documented in this encounter Nursing Notes * MANUEL Elliott - 06/26/2023 2:43 PM EDT Patient presents today for routine foot care. documented in this encounter Plan of Treatment Upcoming Encounters Date Type Specialty Care Team Description 07/13/2023 Office Visit Cardiology Del Díaz Jr., DO 08/05/2023 Office Visit Otolaryngology Jose Antonio Su MD [address] [place] [address] 09/03/2023 Office Visit Pharmacy [facility] Erica [address] [place] [address] 09/03/2023 Office Visit Family James Rooney DO [address] [place] [address] 09/11/2023 Office Visit Dermatology Luis F Mendez MD [address] [place] [address] 09/30/2023 Office Visit Podiatry Kylie Burroughs DPM [address] [place] [address] 02/08/2024 Office Visit Family James Rooney DO [address] [place] [address] Scheduled Procedures Name Priority Associated Diagnoses Date/Ti [...] and Over 02/19/2024 02/18/2023 GFR 05/19/2024 05/19/2023, 0504/2023, 01/27/2023, Additional history exists DTaP,Tdap,and Td Vaccines [...] as of this encounter Visit Diagnoses Diagnosis DM type 2 with diabetic peripheral neuropathy (HCC)- Primary Type II or unspecified type diabetes mellitus with neurological manifestations, not stated as uncontrolled Onychomycosis Dermatophytosis of nail documented in this encounter Advance Directives Healthcare Agents on File Name Relationship Healthcare Agent Relationshi p Communication Farhana Sebastian Spouse Health Care Agent Care Teams Fish Pitcher Relationship Specialty Start Date End Date James Maria DO [address] [place] [address] PCP - General Family Medicine 06/07/18 documented as of this encounter
--- OUTSIDE RECORDS SUMMARY | 2023-07-31 19:40 | External Medical Summary | Summary of Care ---
Author Name Unknown Organization [facility] Address [address] [facility] [address] Phone [phone] Care Team Providers Care Casting Supervisor Name Role Phone James Maria DO Primary Care Provider Reason for Visit * Reason Onset Date Comments Forms Request 05/26/2023 Physician Order Discharge Agency from [facility] Encounter Details Date Type Department Care Team Description 05/26/2023 Telephone Family Practice [facility] [address] [place] [phone] James Maria DO [address] [place] [phone] Forms Request (Physician Order Discharge A... Allergies Active Allergy Reactions Severity Noted Date Comments Lisinopril Edema face/lips/tongue High 04/05/2018 documented as of this encounter (statuses as of 05/26/2023) Medications Medication Sig Dispensed Refills Start Date End Date Status ONETOUCH ULTRA BLUE STRP USE TO CHECK GLUCOSE 4 TIMES DAILY 100 Strip 0 7 Active ONETOUCH DELICA LANCETS 33G MISC USE ONE TO CHECK GLUCOSE 4 TIMES DAILY 100 Each 0 7 Active Sildenafil Citrate (VIAGRA) 50 MG TabletIndications:Imp [...] hemoglobin A1c goal of less than 8.0% ([facility]) Use up to 4 x a day for insulin dosing E11.9 3 Each 1 1 Active FreeStyle Rose Marie 2 Sensor Test blood sugars four times daily 2 Each 11 2 Active FreeStyle Rose Marie 2 [place] Device Test blood sugars four times daily 1 Each 0 2 Active Insulin Aspart 100 UNIT/ML Injection Solution 5 Units. Pt takes 5 to 6 units before meals 0 2 Active Gentamicin Sulfate 0.1 % External OintmentIndications:S [...] Information Patient not taking.Reported on 05/07/2023 Pen Luna 32G X 4 MMIndications:Type 2 diabetes mellitus with hemoglobin A1c goal of less than 8.0% ([facility]) Use as directed. Use to inject insulin up to 4 times daily. 400 Each 3 3 Active Pen Luna 32G X 4 MM Use as directed. Use to inject insulin up to 4 times daily. 30 Each 0 3 Active Doxycycline Hyclate 100 MG Oral Tablet Take 1 Tablet by mouth in the morning and 1 Tablet before bedtime. 0 3 Active Insulin Glargine Solostar 100 UNIT/ML Subcutaneous Solution Pen-injectorIndicatio ns:Type 2 diabetes mellitus with hemoglobin A1c goal of less than 8.0% ([facility]) Inject 12 units subcutaneously at bedtime 15 mL 3 3 Active Metoprolol Tartrate 25 MG Oral [...] 01/01/20 24 Active Eliquis 5 MG Oral TabletIndications:Chr onic atrial fibrillation (HCC) TAKE ONE TABLET BY MOUTH TWICE A DAY; MORNING AND BEFORE BEDTIME 180 Tablet 3 3 12/29/19 24 Active Furosemide 40 MG Oral Tablet (Lasix) TAKE TWO TABLETS BY MOUTH EVERY MORNING AND ONE TABLET IN THE AFTERNOON 270 Tablet 3 3 11/17/19 24 Active documented as of this encounter (statuses as of 05/26/2023) Active Problems Problem Noted Date Medical home [...] with fat layer exposed 01/09/2022 Atherosclerosis of [place] coronary arter y without angina pectoris 01/09/2022 [...] as of this encounter (statuses as of 05/26/2023) Resolved Problems Problem Noted Date Resolved Date [...] DM type 2, not at goal 04/05/2009 10/15/200 9 Overview: Modified per Diabetes protocol #14. [...] as of this encounter (statuses as of 05/26/2023) Immunizations Name Administration Dates Next Due COVID-19 [...] on file documented as of this encounter Miscellaneous Notes * Telephone Encounter - MICHEL Castañeda - 05/26/2023 12:11 PM EDT A Physician Order Discharge form was dropped off [facility] for Dr. James Maria and was placed in his mailbox. documented in this encounter Plan of Treatment Upcoming Encounters Date Type Specialty Care Team Description 05/27/2023 Office Visit Pharmacy [facility] Erica [address] [place] [phone] 06/26/2023 Nutrition Services Nutrition Services Dinah Mohamud, FELIPEN [address] [place] [address] 06/26/2023 Office Visit Podiatry Kylie Burroughs, REMEDIOS [address] [facility] [place] [phone] 07/13/2023 Office Visit Cardiology Del Díaz Jr., DO 08/05/2023 Office Visit Otolaryngology Jose Antonio Su MD [address] [place], [place] [phone] 09/03/2023 Office Visit Family Medicine James Maria DO [address] [place] [phone] 09/11/2023 Office Visit Dermatology Lily Piedra MD 02/08/2024 Office Visit Family Medicine James Maria DO [address] [place] [address] Scheduled Procedures Name Priority Associated Diagnoses Date/Ti [...] Not on filedocumented as of this encounter Advance Directives Healthcare Agents on File Name Relationship [facility] Farhana Sebastian Spouse Health Care Agent Care Teams Casting Supervisor Relationship Specialty Start Date End Date James Maria, [address] [place] [address] PCP - General Family Medicine 06/07/18 documented as of this encounter
--- OUTSIDE RECORDS SUMMARY | 2023-07-31 19:40 | External Medical Summary | Summary of Care ---
Author Name Unknown Organization [facility] Address [address] [facility] [place] [address] Phone [phone] Care Team Providers Care Second Baller Name Role Phone Yariel Mariavor Sophy Primary Care Provider Reason for Visit * Reason Comments DSMT Follow-Up Encounter Details Date Type Department Care Team Description 06/26/2023 Nutrition Services Nutrition, [facility] [address] [place] [address] Dinah Mohamud RDN [address] [place] [address] Type 2 diabetes mellitus with hemoglobin A1c goal of less than 8.0% ([facility])*; Dyslipidemia; HTN, goal below 130/80; Type 2 diabetes mellitus with polyneuropathy ([facility]); Overweight (BMI 25.0-29.9) Allergies Active Allergy Reactions Severity Noted Date [...] 11 12/27/2021 Active FreeStyle Rose Marie 2 [place] Device Test blood sugars four times daily [...] Information Patient not taking.Reported on 05/07/2023 Pen [place] 32G X 4 MMIndications:Type 2 diabetes mellitus with hemoglobin A1c goal of less than 8.0% (HCC) Use as directed. Use to inject insulin up to 4 times daily. 400 Each 3 05/06/2023 Active Pen [place] 32G X 4 MM Use as directed. [...] with fat layer exposed 01/09/2022 Atherosclerosis of [place] coronary arter y without angina pectoris 01/09/2022 [...] = 0.6 oz pure alcohol) As of 2..2006, the last noted alcohol intake was 1 [...] on file documented as of this encounter Last Filed Vital Signs Vital Sign Reading Time Taken Comments Blood Pressure - - Pulse - - Temperature - - Respiratory Rate - - Oxygen Saturation - - Inhaled Oxygen Concentration - - Weight 81 kg (178 lb 8 oz) 06/26/2023 2:11 PM ED T Height 167.6 cm (5' 6") 06/26/2023 2:11 PM EDT Body Mass Index 28.81 06/26/2023 2:11 PM EDT documented in this encounter Patient Instructions * Patient Instructions* Dinah Mohamud RDN - 06/26/2023 2:34 PM EDT Participant will take insulin daily as prescribed. documented in this encounter Progress Notes * Dinah Mohamud RDN - 06/26/2023 2:12 PM EDT DIABETES SELF-MANAGEMENT TRAINING/FOLLOW UP NOTE Name: Selvin Sebastian Date: 06/26/2023 Participant was seen in person in clinic today. is also present. Last order of DIABETES MANAGEMENT EDUCATION (ADA) REFERRAL was found on 05/08/2023 from Telephone on 05/08/2023 Last order of CLINICAL NUTRITION AND DIABETES EDUCATION ANNUAL RENEWAL was found on 12/22/2022 from Telephone on 12/19/2022 Last order of PEDIATRIC DIABETES MANAGEMENT EDUCATION (ADA) REFERRAL OP was found on 05/13/2017 fromOffice Visit on 05/13/[address]? Yes Participant scheduled for 1:1 training due to lack of classes scheduled within 2 months of appointment. What diabetes concerns and/or barriers to care would you like to discuss in your appointment: none Topics from last visit to attempt to cover today: none Was behavior objective from last visit met at least 80% of the time: Medications: No Psychosocial Screening: Lately have you been feeling down, depressed or hopeless most of the day? No Food Insecurity: Within the past 12 months, I worried whether our food would run out before we got money to buy more. No Within the past 12 months, the food we bought just did not last and we did not have money to buy more. No Sleep Health: Addressed - How many hours are you sleeping during the night? 6 hours Do you have difficulty falling or staying asleep? Yes, staying asleep Do you snore? Does not know Are you waking up during the night with symptoms of low glucose levels (shaky, sweaty, nightmares)?No Are you waking up during the night to urinate frequently? Participant currently has a urinary catheter in place Diabetes Medications: Aspart insulin 5-6 units before meals Metformin 500 mg 2 tablets in AM and 2 tablets at HS Novolog 5 units with meals (not being used) Xultophy 20 units at evening (not currently being used) Monitoring blood glucose, interpreting and using results Results for orders placed or performed in visit on 05/19/23 HEMOGLOBIN A1C Result Value Ref Range Hemoglobin A1C 9.4 (H) 4.0 - 5.6 % Estimated Average Glucose 223 (H) <126 mg/dL Results for orders placed or performed in visit on 01/27/23 HEMOGLOBIN A1C Result Value Ref Range Hemoglobin A1C 9.2 (H) 4.0 - 5.6 % Estimated Average Glucose 217 (H) <126 mg/dL Results for orders placed or performed in visit on 09/01/22 HEMOGLOBIN A1C Result Value Ref Range Hemoglobin A1C 9.0 (H) 4.0 - 5.6 % Estimated Average Glucose 212 (H) <126 mg/dL Out of target, trending up slightly Self-Monitoring Blood Glucose Source of Information: Participant does not monitor blood glucoses Hypoglycemia?: No Diet: Breakfast: oatmeal with brown sugar with milk, coffee Snacks: none Lunch: can of vegetable or pot roast or nails or barley soup or sandwich-ham BBQ, coffee Snacks: none Dinner: skips or pot roast soup or TV dinner-turkey, gravy, mashed potatoes, apple dessert Snacks: crackers with cheese spread Drinks: water, coffee sometimes with Splenda Restaurant meals: once a week Alcohol: couple times a week-beer Tobacco Use: No Weight management review: Wt Readings from Last 6 Encounters: 06/26/23 81 kg (178 lb 8 oz) 05/19/23 81.7 kg (180 lb 3.2 oz) 05/11/23 84.8 kg (187 lb) 04/20/23 85.3 kg (188 lb 1.6 oz) 02/18/23 92.1 kg (203 lb 1.6 oz) 02/03/23 91.7 kg (202 lb 3 oz) Weight changes since last visit: decreased 9.5 lbs in past 4 months Physical Activity: Limited, currently wobbly, sometimes walks with walker. States he is fine to walk after he gets up. ADA STANDARDS OF CARE/BUNDLE MEASURES Diabetes Bundle / Standards of Care: Needs annual dilated eye exam, B12 screening (if taking metformin), dental exam, and flu vaccine Therapy Management Plan: Hypertension: BP Readings from Last 3 Encounters: 05/11/23 106/60 02/18/23 122/60 02/03/23 116/66 At goal/target Dyslipidemia: Lab Results Component Value Date/Time LDL CHOLESTEROL (CALCULATED) - [facility] 56 05/19/2023 03:25 PM LDL CHOLESTEROL (CALCULATED) - [facility] 85 06/04/2016 01:48 PM LDL CHOLESTEROL (DIRECT MEASURE) - [facility] 53 01/11/2018 11:20 AM At goal/target Taking Statin Kidney function review: Lab Results Component Value Date/Time ESTIMATED GLOMERULAR FILTRATION RATE - [facility] 54 (L) 05/19/2023 03:25 PM ESTIMATED GLOMERULAR FILTRATION RATE - [facility] >60.0 06/01/2020 03:18 PM ESTIMATED GLOMERULAR FILTRATION RATE - [facility] >60.0 2013 03:29 PM Lab Results Component Value Date/Time ALBUMIN / CREATININE RATIO, URINE - [facility] 63 (H) 01/27/2023 11:20 AM ALBUMIN / CREATININE RATIO, URINE - [facility] 23 03/13/2020 01:44 PM Out of target DSMT/Diabetes MNT Diagnosis: Inability or lack of desire to manage self care related to not following diabetes medication regimen as evidenced by encounter with participant DSMT Follow-up Assessment of Content Areas: Choose the answer that represents the participant's competency in ONLY topics assessed from previous visit and addressed today. Areas taught today must correlate with intervention. If content area not assessed and/or intervened today, it will be deferred to future session. Using medications safely: Needs review (2) Monitoring blood glucose, interpreting and using results: Needs review (2) Prevention, detection, and treatment of chronic complications: Needs review (2) Developing strategies to address psychosocial issues: Needs review (2) DSMT/ Diabetes MNT intervention: Medication: Participant again states he is not taking his insulin regimen. Encouraged him to take it. Discussed Xultophy was ordered but states MTM pharmacist states he can take previous insulinuntil it's gone. States "I don't know" when asked why he isn't taking it. Monitoring: Participant is not currently checking glucose levels. states she needs to get another sensor; last one was working incorrectly. Patient states he doesn't like to check glucose levelswith a meter due to sore fingers when checking. Reminded of his appointment with [facility] on[facility] 03. Chronic Complications: Discussed need for taking insulin regimen and checking glucose levels to prevent complications. Reminded of participant's Cardiology appointment on July 13. Psychosocial: No social issues now noted. states participant is living in a trailer on the property. Participant Selected Behavioral Objective: Medications: To improve blood glucose levels, I will take insulin daily as prescribed. Recommended Medication Changes: No changes. Education materials given to participant/caregiver and reviewed during today's visit: None given today Possible Future Topics: Content areas that were not assessed in prior visits: All content areas have been assessed. Time Spent With Patient: Time in: 2:10 PM Time out: 2:36 PM Billing: MNT: 30 Minutes (23-37) Plan for Return: 4 months Participant provided with contact information for Diabetes Care [facility] Machine Engra[facility]. All [facility] providers within the system are able to see [place] [employer] education and outcomes within the participant's electronic medical record. Dinah Mohamud RDN, NUTRITION SERVICES [facility] Diabetes Care and [employer] [facility] documented in this encounter Plan of Treatment Upcoming Encounters Date Type Specialty Care Team Description 07/13/2023 Office Visit Cardiology Del Díaz Jr., DO 08/05/2023 Office Visit Otolaryngology Jose Antonio Su MD [address] [place] [address] 09/03/2023 Office Visit Pharmacy [facility] [address] [place] [address] 09/03/2023 Office Visit Family Medicine James Maria, DO [address] [place] [address] 09/11/2023 Office Visit Dermatology Luis F Mendez MD [address] [place] [address] 09/30/2023 Office Visit Podiatry Kylie Burroughs, [facility] [address] [place] [address] 02/08/2024 Office Visit Family Medicine James Maria DO [address] [place] [address] Scheduled Procedures Name Priority Associated Diagnoses Date/Ti [...] hemoglobin A1c goal of less than 8.0% (HCC)- Primary Dyslipidemia Other and unspecified hyperlipidemia HTN, goal below 130/80 Unspecified essential hypertension Type 2 diabetes mellitus with polyneuropathy (HCC) Type II or unspecified type diabetes mellitus with neurological manifestations, not stated as uncontrolled Overweight (BMI 25.0-29.9) Overweight documented in this encounter Advance Directives Healthcare Agents on File Name Relationship Healthcare Agent Relationshi p Communication Farhana Sebastian Spouse Health Care Agent Care Teams Second Baller Relationship Specialty Start Date End Date James Maria DO [address] [place] [address] PCP - General Family Medicine 06/07/18 documented as of this encounter
--- OUTSIDE RECORDS SUMMARY | 2023-07-31 19:40 | External Medical Summary | Summary of Care ---
Author Name Unknown Organization [facility] Address [address] [facility] [facility] [address] Phone [phone] Care Team Providers Care Maintenance Shop Laborer Name Role Phone James Maria DO Primary Care Provider Reason for Visit * Reason Onset Date Comments Test Results 05/21/2023 Encounter Details Date Type Department Care Team Description 05/21/2023 Telephone Family Practice [facility] [address] [place] [address] Angela Rudd DO [address] [place] [address] Test Results (/) Allergies Active Allergy Reactions Severity Noted Date Comments Lisinopril Edema face/lips/tongue High 04/05/2018 documented as of this encounter (statuses as of 05/25/2023) Medications Medication Sig Dispensed Refills Start Date [...] hemoglobin A1c goal of less than 8.0% ([facility]) Use up to 4 x a day for insulin dosing E11.9 3 Each 1 1 Active FreeStyle Rose Marie 2 Sensor Test blood sugars four times daily 2 Each 11 2 Active FreeStyle Rose Marie 2 [place] Device Test blood sugars four times daily [...] Information Patient not taking.Reported on 05/07/2023 Pen [place] 32G X 4 MMIndications:Type 2 diabetes mellitus with hemoglobin A1c goal of less than 8.0% ([facility]) Use as directed. Use to inject insulin up to 4 times daily. 400 Each 3 3 Active Pen [place] 32G X 4 MM Use as directed. Use to inject insulin up to 4 times daily. 30 Each 0 3 Active Doxycycline Hyclate 100 MG Oral Tablet Take 1 Tablet by mouth in the morning and 1 Tablet before bedtime. 0 3 Active Insulin Glargine Solostar 100 UNIT/ML Subcutaneous Solution Pen-injectorIndicatio ns:Type 2 diabetes mellitus with hemoglobin A1c goal of less than 8.0% ([facility]) Inject 12 units subcutaneously at bedtime 15 [...] as of this encounter (statuses as of 05/25/2023) Active Problems Problem Noted Date Medical home [...] with fat layer exposed 01/09/2022 Atherosclerosis of [place] coronary arter y without angina pectoris 01/09/2022 [...] as of this encounter (statuses as of 05/25/2023) Resolved Problems Problem Noted Date Resolved Date [...] as of this encounter (statuses as of 05/25/2023) Immunizations Name Administration Dates Next Due COVID-19 [...] encounter Miscellaneous Notes * Telephone Encounter - MANUEL Main - 05/22/2023 2:54 PM EDT Spoke to , made aware. * Telephone Encounter - Angela Rdud DO - 05/22/2023 1:41 PM EDT First time note of low potassium, will await recheck in 1 month. Would advise to try to incorportate K into diet - leafy greens, beans, bananas Thank you * Telephone Encounter - Shani Calderon LPN - 05/21/2023 3:28 PM EDT Called and s/w . Aware of results, can get recheck bw done in 1 month. Pt does not take a potassium supplement. Do you want him to start one? * Telephone Encounter - Angela Rudd DO - 05/21/2023 2:38 PM EDT Labs stable but note of mild elevation in wbc, anemia, low potassium Would advise recheck 1 month with nonfasting labs Does pt take K supplement while on lasix? Thank you documented in this encounter Plan of Treatment Upcoming Encounters Date Type Specialty Care Team Description 05/27/2023 Office Visit Pharmacy [facility] [address] [place] [address] 06/26/2023 Nutrition Services Nutrition Services Dinah Mohamud RDN [address] [place] [address] 06/26/2023 Office Visit Podiatry Kylie Burroughs DPM [address] [place] [address] 07/13/2023 Office Visit Cardiology Del Díaz Jr., DO 08/05/2023 Office Visit Otolaryngology Jose Antonio Su MD [address] [place] [address] 09/03/2023 Office Visit Family James Rooney DO [address] [place] [address] 09/11/2023 Office Visit Dermatology Lily Piedra MD 02/08/2024 Office Visit Family James Rooney DO [address] [place] [address] Scheduled Orders Name Type Priority Associated Diagnoses Orde r Schedule CBC WITH WBC DIFFERENTIAL Lab Routine Leukocytosis, unspecified type Hypokalemia Expected: 06/19/2023 (Approximate), Expires: 05/21/2024 BASIC METABOLIC PANEL Lab Routine Leukocytosis, unspecified type Hypokalemia Expected: 06/19/2023 (Approximate), Expires: 05/20/2024 Scheduled Procedures Name Priority Associated Diagnoses Date/Ti [...] as of this encounter Visit Diagnoses Diagnosis Leukocytosis, unspecified type- Primary Hypokalemia Hypopotassemia documented in this encounter Advance Directives Healthcare Agents on File Name Relationship Healthcare Agent [facility] Communication Farhana Sebastian Spouse Health Care Agent Care Teams Maintenance Shop Laborer Relationship Specialty Start Date End Date James Maria, [address] [place] [address] PCP - General Family Medicine 06/07/18 documented as of this encounter
--- OUTSIDE RECORDS SUMMARY | 2023-07-31 19:41 | External Medical Summary | Summary of Care ---
Author Name Unknown Organization [facility] Address [address] [facility] [address] Phone [phone] Care Team Providers Care Glass Frame Fitter Name Role Phone Rylan Mariar Sophy Primary Care Provider Encounter Details Date Type Department Care Team Description 05/19/2023 Office Visit Audiology [facility] [address] [place] [address] Dixie Mcgill Au.D. [address] [place] [address] Mixed conductive and sensorineural hearing loss of right ear with restricted hearing of left ear* Allergies Active Allergy Reactions Severity Noted Date Comments Lisinopril Edema face/lips/tongue High 04/05/2018 documented as of this encounter (statuses as of 05/19/2023) Medications Medication Sig Dispensed Refills Start Date [...] hemoglobin A1c goal of less than 8.0% ([facility]) Use up to 4 x a day for insulin dosing E11.9 3 Each 1 1 Active FreeStyle Rose Marie 2 Sensor Test blood sugars four times daily 2 Each 11 2 Active FreeStyle Rose Marie 2 [place] Device Test blood sugars four times daily [...] Information Patient not taking.Reported on 05/07/2023 Pen [place] 32G X 4 MMIndications:Type 2 diabetes mellitus with hemoglobin A1c goal of less than 8.0% ([facility]) Use as directed. Use to inject insulin up to 4 times daily. 400 Each 3 3 Active Pen [place] 32G X 4 MM Use as directed. Use to inject insulin up to 4 times daily. 30 Each 0 3 Active Doxycycline Hyclate 100 MG Oral Tablet Take 1 Tablet by mouth in the morning and 1 Tablet before bedtime. 0 3 Active Insulin Glargine Solostar 100 UNIT/ML Subcutaneous Solution Pen-injectorIndicatio ns:Type 2 diabetes mellitus with hemoglobin A1c goal of less than 8.0% ([facility]) Inject 12 units subcutaneously at bedtime 15 [...] as of this encounter (statuses as of 05/19/2023) Active Problems Problem Noted Date Medical home [...] with fat layer exposed 01/09/2022 Atherosclerosis of [place] coronary arter y without angina pectoris 01/09/2022 [...] as of this encounter (statuses as of 05/19/2023) Resolved Problems Problem Noted Date Resolved Date [...] as of this encounter (statuses as of 05/19/2023) Immunizations Name Administration Dates Next Due COVID-19 [...] as of this encounter Progress Notes * Bryan Perez - 05/19/2023 3:02 PM EDT Images from the original note were not included. Audiologic evaluation was completed on referral from Otolaryngology clinic. Tympanometry 530[address] Right: Flat with normal equivalent volume ("Type B") Left: Could not obtain seal Standard audiometric testing 31339 ABSD insert earphones Fair to Good reliability Right: severe to profound mixed hearing loss Left: DNT Speech awareness thresholds were consistent with hearing thresholds, obtained @ 75 dbHL in right ear . Word recognition scores CNE Bryan Avilez, CCC-A 05/19/2023 3:02 PM Scan: audiogram, tympanograms documented in this encounter Plan of Treatment Upcoming Encounters Date Type Specialty Care Team Description 05/19/2023 Laboratory Laboratory [facility] [address] [facility] [place] [address] Arrived 05/27/2023 [facility] [address] [facility] [place] [address] 06/26/2023 Nutrition Services Nutrition Services Dinah Mohamud RDN [address] [facility] [place] [address] 06/26/2023 Office Visit Podiatry Kylie Burroughs DPM [address] [place], [place] [id number] 07/13/2023 Office Visit Cardiology Del Díaz Jr., DO 08/05/2023 Office Visit Otolaryngology Jose Antonio Su MD [address] [place] [address] 09/03/2023 Office Visit Family Medicine James Maria DO [address] [place] [address] 09/11/2023 Office Visit Dermatology Lily Piedra MD 02/08/2024 Office Visit Family Medicine James Maria DO [address] [place] [address] Scheduled Procedures Name Priority Associated Diagnoses Date/Ti me COLONOSCOPY FLEXIBLE PROXIMA L DIAGNOSTIC Recall Encounter for screening colonoscopy Health Maintenance Due Date Last Done Comments Influenza Vaccine (FLU shot) (#1) 2023 08/05/2022, 08/10/2021, 08/10/2021, Additional history exists HbA1c 07/30/2023 01/27/2023, 08/04, 05/21/2022, Additional history exists B-12 09/01/2023 09/01/2022, 11/02, 01/11/2018 DIABETES-EYE EXAM 09/01/2023 09/01/2022, , 12/15/2019, Additional history exists DIABETES-FOOT EXAM 09/01/2023 09/01/2022, 0 02/28/2021, 10/13/2019, Additional history exists Albumin/Creatinine Ratio 01/28/2024 023, 06/05/2022, 03/13/2020, Additional history exists Depression Screening, Annual for Pts 12 and Over 02/19/2024 02/18/2023 GFR 03/07/2024 03/07/2023, 01/01, 11/20/2022, Additional history exists DTaP,Tdap,and Td Vaccines (3 [...] Not on filedocumented as of this encounter Procedures Procedure Name Priority Date/Time Associated Diagnosis Comments AUDIOMETRIC RESULT 05/19/2023 documented in this encounter Results * AUDIOMETRIC RESULT (05/19/2023) 05/19/2023 [facility] documented in this encounter Visit Diagnoses Diagnosis Mixed conductive and sensorineural hearing loss of right ear with restricted hearing of left ear- Primary documented in this encounter Advance Directives Healthcare Agents on File Name Relationship Healthcare Agent Relationshi p Communication Farhana Sebastian Spouse Health Care Agent Care Teams Glass Frame Fitter Relationship Specialty Start Date End Date James Maria DO [address] [place] [address] PCP - General Family Medicine 06/07/18 documented as of this encounter
--- OUTSIDE RECORDS SUMMARY | 2023-07-31 19:41 | External Medical Summary ---
Author Name Unknown Address Unknown Organization [facility] [place] [address] Laboratory Report Ordering Provider Test Date Status BENJAMIN BA 05/19/2023 15:25:03 Final Observation Date Value Abnormality Reference (Units ) Status SYNC LEUKOCYTES IN BLOOD BY AUTOMATED COUNT 05/19/2023 15:25:03 11.92 Above high normal 4.00-10.80 (K/uL) Final Segs 05/19/2023 15:25:03 61.4 40.0-75.0 (%) Final Lymphs % 05/19/2023 15:25:03 26.6 18.0-42.0 (%) Final Monos 05/19/2023 15:25:03 9.1 1.0-11.0 (%) Final Eosinophils 05/19/2023 15:25:03 2.6 0.0-6.0 (%) Final Basos 05/19/2023 15:25:03 0.3 0.0-2.0 (%) Final Absolute Segs 05/19/2023 15:25:03 7.32 1.80-7.70 (K/uL) Final Lymphs, absolute 05/19/2023 15:25:03 3.17 1.00-4.80 (K/ul) Final Monos, Abs 05/19/2023 15:25:03 1.09 0.00-1.10 (K/uL) Final Eos, Abs 05/19/2023 15:25:03 0.31 0.00-0.70 (K/uL) Final Basos, Abs 05/19/2023 15:25:03 0.03 0.00-0.20 (K/uL) Final Performing Location [facility] [place] [address]
--- OUTSIDE RECORDS SUMMARY | 2023-07-31 19:41 | External Medical Summary | Summary of Care ---
Author Name Unknown Organization [facility] Address [address] [place] [address] Phone [phone] Care Team Providers Care Associate Professor Of Literature Name Role Phone Crow James Dyefiliberto Primary Care Provider Reason for Visit * Reason Comments Outpatient Testing Encounter Details Date Type Department Care Team Description 05/19/2023 [facility] [place] [address] [facility] [address] [place] [address] Mixed conductive and sensorineural hearing loss of both ears; Dyslipidemia; Type 2 diabetes mellitus with hemoglobin A1c goal of less than 8.0% ([facility]); Anaplasmosis; Bladder outlet obstruction; Atrial fibrillation with RVR ([facility]); Electrolyte abnormality Allergies Active Allergy Reactions Severity Noted Date [...] 11 2 Active FreeStyle Rose Marie 2 [place] Device Test blood sugars four times daily [...] Information Patient not taking.Reported on 05/07/2023 Pen Otley 32G X 4 MMIndications:Type 2 diabetes mellitus with hemoglobin A1c goal of less than 8.0% ([facility]) Use as directed. Use to inject insulin up to 4 times daily. 400 Each 3 3 Active Pen Otley 32G X 4 MM Use as directed. [...] with fat layer exposed 01/09/2022 Atherosclerosis of [place] coronary arter y without angina pectoris 01/09/2022 [...] 30 Mcg, IM, 12 yrs and above ([facility]) 11/17/2022 Pneumococcal Conjugate Vacc, 13 Valent (Prevnar) [...] on file documented as of this encounter Plan of Treatment Upcoming Encounters Date Type Specialty Care Team Description 05/27/2023 Office Visit Pharmacy [facility] [address] [facility] [place] [address] 06/26/2023 Nutrition Services Nutrition Services Dinah Mohamud, FELIPEN [address] [place] [address] 06/26/2023 Office Visit Podiatry Kylie Burroughs, REMEDIOS [address] [facility] [place] [address] 07/13/2023 Office Visit Cardiology Del Díaz Jr., 08/05/2023 Office Visit Otolaryngology Jose Antonio Su MD [address] [place] [address] 09/03/2023 Office Visit Family Medicine James Maria DO [address] [place] [address] 09/11/2023 Office Visit Dermatology Lily Piedra MD 02/08/2024 Office Visit Family Medicine James Maria, DO [address] [place] [address] Pending Results Name Type Priority Associated Diagnoses Date /Time COMPREHENSIVE METABOLIC PANEL Lab Routine Dyslipidemia 05/19/2023 3:25 PM EDT HEMOGLOBIN A1C Lab Routine Type 2 diabetes mellitus with hemoglobin A1c goal of less than 8.0% ([facility]) 05/19/2023 3:25 PM EDT LIPID PANEL WITH DIRECT LDL IF TG IS HIGH Lab Routine Dyslipidemia 05/19/2023 3:25 PM EDT Scheduled Procedures Name Priority Associated Diagnoses Date/Ti [...] Procedure Name Priority Date/Time Associated Diagnosis Comments DIFFERENTIAL, AUTOMATED Routine 05/19/2023 3:25 PM EDT Mixed conductive and sensorineural hearing loss of both ears CBC WITH WBC DIFFERENTIAL Routine 05/19/2023 3:25 PM EDT Mixed conductive and sensorineural hearing loss of both ears CBC Routine 05/19/2023 3:25 PM EDT Mixed conductive and sensorineural hearing loss of both ears documented in this encounter Results * (ABNORMAL) DIFFERENTIAL, AUTOMATED (05/19/2023 3:25 PM EDT) [facility] Signature WBC 11.92(H) 4.00 - 10.80 K/uL 05/19/2023 3:38 PM EDT [facility] Neutrophils % 61.4 40.0 - 75.0 % 05/19/2023 3:38 PM EDT [facility] Lymphocytes % 26.6 18.0 - 42.0 % 05/19/2023 3:38 PM EDT [facility] Monocytes % 9.1 1.0 - 11.0 % 05/19/2023 3:38 PM EDT [facility] Eosinophils % 2.6 0.0 - 6.0 % 05/19/2023 3:38 PM EDT [facility] Basophils % 0.3 0.0 - 2.0 % 05/19/2023 3:38 PM EDT [facility] [place] [facility] Absolute Neutrophils 7.32 1.80 - 7.70 K/uL 05/19/2023 3:38 PM EDT [facility] Absolute Lymphocytes 3.17 1.00 - 4.80 K/ul 05/19/2023 3:38 PM EDT [facility] Absolute Monocytes 1.09 0.00 - 1.10 K/uL 05/19/2023 3:38 PM EDT [facility] Absolute Eosinophils 0.31 0.00 - 0.70 K/uL 05/19/2023 3:38 PM EDT [facility] Absolute Basophils 0.03 0.00 - 0.20 K/uL 05/19/2023 3:38 PM EDT [facility] Blood Venous blood specimen / Unknown Venipuncture / Unknown 05/19/2023 3:25 PM EDT 05/19/2023 3:25 PM EDT James Maria DO LAB BLOOD ORDER [facility] [place] [facility] [address] [facility] [place] [address] * (ABNORMAL) CBC (05/19/2023 3:25 PM EDT) WBC 11.92(H) 4.00 - 10.80 K/uL 05/19/2023 3:38 PM EDT [facility] RBC 4.52 4.50 - 5.25 M/uL 05/19/2023 3:38 PM EDT [facility] HGB 13.2(L) 14.0 - 16.8 g/dL 05/19/2023 3:38 PM EDT [facility] HCT 39.7(L) 40.0 - 48.4 % 05/19/2023 3:38 PM EDT [facility] MCV 87.8 82.0 - 99.5 fL 05/19/2023 3:38 PM EDT [facility] MCH 29.2 27.0 - 34.0 pg 05/19/2023 3:38 PM EDT [facility] MCHC 33.2 32.0 - 36.0 g/dL 05/19/2023 3:38 PM EDT [facility] RDW 13.1 11.5 - 15.5 % 05/19/2023 3:38 PM EDT [facility] PLT 271 140 - 400 K/uL 05/19/2023 3:38 PM EDT [facility] MPV 10.3 6.6 - 11.1 fL 05/19/2023 3:38 PM EDT [facility] Blood Venous blood specimen / Unknown Venipuncture / Unknown 05/19/2023 3:25 PM EDT 05/19/2023 3:25 PM EDT James Maria DO LAB BLOOD ORDER [facility] [address] [place] [address] documented in this encounter Visit Diagnoses Diagnosis Mixed conductive and sensorineural hearing loss of both ears Mixed hearing loss, bilateral Dyslipidemia Other and unspecified hyperlipidemia Type 2 diabetes mellitus with hemoglobin A1c goal of less than 8.0% (HCC) Anaplasmosis Other ehrlichiosis Bladder outlet obstruction Bladder neck obstruction Atrial fibrillation with RVR (HCC) Atrial fibrillation Electrolyte abnormality Electrolyte and fluid disorders not elsewhere classified documented in this encounter Advance Directives Healthcare Agents on File Name Relationship Healthcare Agent Relationshi p Communication Farhana Sebastian Spouse Health Care Agent Care Teams Associate Professor Of Literature Relationship Specialty Start Date End Date James Maria DO [address] [place] [address] PCP - General Family Medicine 06/07/18 documented as of this encounter
--- OUTSIDE RECORDS SUMMARY | 2023-07-31 19:41 | External Medical Summary ---
Author Name Unknown Address Unknown Organization [id number]:[facility] - [address] [place] [address] Laboratory Report Ordering Provider Test Date Status BENJAMIN BA 05/19/2023 15:25:03 Final Observation Date Value Abnormality Reference (Units ) Status WBC, Total 05/19/2023 15:25:03 11.92 Above high normal 4 .00-10.80 (K/uL) Final RBC 05/19/2023 15:25:03 4.52 4.50-5.25 (M/uL) Final Hemoglobin 05/19/2023 15:25:03 13.2 Below low normal 14 .0-16.8 (g/dL) Final HCT 05/19/2023 15:25:03 39.7 Below low normal 40. 0-48.4 (%) Final MCV 05/19/2023 15:25:03 87.8 82.0-99.5 (fL) Final MCH 05/19/2023 15:25:03 29.2 27.0-34.0 (pg) Final MCHC 05/19/2023 15:25:03 33.2 32.0-36.0 (g/dL) Final RDW 05/19/2023 15:25:03 13.1 11.5-15.5 (%) Final Platelets 05/19/2023 15:25:03 271 140-400 (K /uL) Final MPV 05/19/2023 15:25:03 10.3 6.6-11.1 ( fL) Final Performing Location [facility] [address] - [address] [place] [address]
--- OUTSIDE RECORDS SUMMARY | 2023-07-31 19:41 | External Medical Summary ---
Author Name Unknown Address Unknown Organization K01:[facility] [address] [place] [address] Laboratory Report Ordering Provider Test Date Status BENJAMIN BA 05/19/2023 15:25:03 Final Observation Date Value Abnormality Reference (Units ) Status Triglyceride 05/19/2023 15:25:03 71 <=174 ( mg/dL) Final Performing Location [facility] - [address] [place] [address]
--- OUTSIDE RECORDS SUMMARY | 2023-07-31 19:41 | External Medical Summary | Summary of Care ---
Author Name Unknown Organization [facility] Address [address] [facility] [address] Phone [phone] Care Team Providers Care Human Resources Director Name Role Phone James Maria DO Primary Care Provider Reason for Visit * Reason Comments Hearing Problem * Evaluate & Treat - Unlimited Visits (Within 3 days (urgent)) - Authorized Specialty Diagnoses / Procedures Referred By Collin leigh Referred To Contact Otolaryngology Diagnoses Mixed conductive and sensorineural hearing loss of both ears James Maria DO [address] [place] [address] Referral ID Status Reason Start Date Expiration Date Visits Requested Visits Authorized [id number] Authorized Specialty Services Required 02/03/2023 999 999 Encounter Details Date Type Department Care Team Description 05/19/2023 Office Visit Otolaryngology [facility] [address] [place] [address] Gurinder Arias DO [address] [place] [address] Bilateral hearing loss, unspecified hearing loss type* Allergies Active Allergy Reactions Severity Noted Date [...] 11 2 Active FreeStyle Rose Marie 2 [place] Device Test blood sugars four times daily [...] Information Patient not taking.Reported on 05/07/2023 Pen Coleman 32G X 4 MMIndications:Type 2 diabetes mellitus with hemoglobin A1c goal of less than 8.0% (HCC) Use as directed. Use to inject insulin up to 4 times daily. 400 Each 3 3 Active Pen Coleman 32G X 4 MM Use as directed. [...] DM type 2, not at goal 04/05/2009 10//200 9 Overview: Modified per Diabetes protocol #14. [...] - Inhaled Oxygen Concentration - - Weight 81.7 kg (180 lb 3.2 oz) 05/19/2023 2:35 P M EDT Height 167.6 cm (5' 6") 05/19/2023 2:35 PM EDT Body Mass Index 29.09 05/19/2023 2:35 PM EDT documented in this encounter Progress Notes * Gurinder Arias, DO - 05/19/2023 2:36 PM EDT Images from the original note were not included. Otolaryngology Head and Neck Surgery 05/19/2023 Patient comes in today for check of his ears. He has a ear with no hearing on the left. This happened when he was 18 years old.. He saw Dr. Multani in 2020 for right tympanic membrane perforation. He recommended observation as this was his only hearing ear. 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.A31 Type 2 diabetes mellitus with hemoglobin A1c goal of less than 8.0% ([facility]) E11.9 Dyslipidemia E78.5 HTN, goal below 130/80 I10 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, bilateral M21.961, M21.962 Type 2 diabetes mellitus with polyneuropathy ([facility]) E11.42 Tympanic membrane perforation, 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, 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, with fat layer exposed ([facility]) E11.621, L97.512 Atherosclerosis of [place] co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 angina pectoris I25.10 Hoarding behavior F42.3 Paroxysmal atrial fibrillation ([facility]) I48.0 Moderate aortic stenosis I35.0 Overweight (BMI 25.0-29.9) E66.3 Unsteady gait when walking R26.81 Cellulitis of toe of left foot L03.032 Nonrheumatic aortic valve stenosis I35.0 Chronic heart failure with preserved ejection fraction (HCC) I50.32 Hypertensive heart disease with chronic diastolic congestive heart failure (HCC) I11.0, I50.32 Medical home patient encounter Z00.8 Past Medical History: Diagnosis Date Allergic rhinitis 2003 BPH with obstruction/lower urinary tract symptoms 03/13/2020 Chronic mastoiditis 2004 Diabetes mellitus (HCC) Dysfunction of eustachian tube 2004 Dyslipidemia 10/15/2009 Per Lipid Taxonomy. Hypertension Mixed hearing loss, unilateral 2004 right Mixed obsessional thoughts and acts 11/21/2019 Multilevel degenerative disc disease 03/13/2020 Otitis media 2004 Overweight (BMI 25.0-29.9) 05/22/2022 Puncture wound of right foot 05/26/2022 With associated cellulitis. Inpt treatment 05/16-05/18 Sensorineural hearing loss, unilateral 2003 left Past Surgical History: Procedure Laterality Date COLONOSCOPY 11/05 clear - repeat 10 y COLONOSCOPY, DIAGNOSTIC (RECTUM) 12/10/2015 diverticulosis, repeat 10 yrs/COLONOSCOPY FLEXIBLE PROXIMAL DIAGNOSTIC performed by Agustin Saravia MD at ENDOSCOPY [facility] FOOT/TOE SURGERY NEC 11/14 L foot deformity L-/S-SPINE PARAVERTEBRAL FACET INJ,1 LEVEL 05/03/2020 L-/S-SPINE PARAVERTEBRAL FACET INJ, 1 LEVEL performed by Avtar Merchant DO at OR [facility] MASTOID SURGERY REVISION/APICECTOMY age 18 [facility] SHOULDER ARTHROSCOPY SURGERY 01/07 spur removed Medications Current Outpatient Medications Medication Sig Dispense Refill ONETOUCH ULTRA BLUE STRP USE TO CHECK GLUCOSE 4 TIMES DAILY 100 Strip 0 ONETOUCH DELICA LANCETS 33G [facility] USE ONE TO CHECK GLUCOSE 4 TIMES DAILY 100 Each 0 Sildenafil Citrate (VIAGRA) 50 MG Tablet Take 1 Tab by mouth as needed for Erectile Dysfunction. 5 Tab 6 Glucose Blood (ONETOUCH VERIO) STRP Use up to 4 times a day E11.9 300 Strip 3 Fluorouracil 5 % External Cream (Efudex) Apply to Scalp, ears, and temples twice a day for three weeks. 40 g 1 Insulin Syringe-Needle U-100 30G X 5/16" 0.3 ML Use up to 4 x a day for insulin dosing E11.9 3 Each 1 FreeStyle Rose Marie 2 Sensor Test blood sugars four times daily 2 Each 11 FreeStyle Rose Marie 2 [place] Device Test blood sugars four times daily 1 Each 0 Insulin Aspart 100 UNIT/ML Injection Solution 5 Units. Pt takes 5 to 6 units before meals Gentamicin Sulfate 0.1 % External Ointment Apply to wounds on hands twice daily 15 g 1 Cephalexin 500 MG Oral Capsule (Keflex) Take 1 Capsule by mouth in the morning and 1 Capsule atnoon and 1 Capsule before bedtime. (Patient not taking: Reported on 02/03/2023) Qavaxho-Uqgzjy-Foqsm Pertussis 5-2.5-18.5 LF-MCG/0.5 Suspension Prefilled Syringe (Boostrix) Administer 0.5ml intramuscularly as directed 0.5 mL 0 Silver sulfADIAZINE 1 % External Cream (Silvadene) Apply to wounds on hands 100 g 1 Ciprofloxacin HCl 500 MG Oral Tablet (Cipro) Take 1 Tablet by mouth in the morning and 1 Tabletbefore bedtime. (Patient not taking: Reported on 05/07/2023) 14 Tablet 0 Pen Coleman 32G X 4 MM Use as directed. Use to inject insulin up to 4 times daily. 400 Each 3 Pen Coleman 32G X 4 MM Use as directed. Use to inject insulin up to 4 times daily. 30 Each 0 Doxycycline Hyclate 100 MG Oral Tablet Take 1 Tablet by mouth in the morning and 1 Tablet before bedtime. Insulin Glargine Solostar 100 UNIT/ML Subcutaneous Solution Pen-injector Inject 12 units subcutaneously at bedtime 15 mL 3 Metoprolol Tartrate 25 MG Oral Tablet (Lopressor) TAKE ONE TABLET BY MOUTH TWICE A DAY -- IN THE MORNING AND BEFORE BEDTIME 180 Tablet 1 metFORMIN HCl ER 500 MG Oral Tablet Extended Release 24 Hour (Glucophage XR) TAKE TWO TABLETS BY MOUTH EVERY MORNING 180 Tablet 3 NovoLOG FlexPen 100 UNIT/ML Subcutaneous Solution Pen-injector INJECT 5 UNITS UNDER THE SKIN THREE TIMES DAILY WITH MEALS 15 mL 3 Tamsulosin HCl 0.4 MG Oral Capsule (Flomax) TAKE ONE CAPSULE BY MOUTH EVERY MORNING 100 Capsule2 Atorvastatin Calcium 40 MG Oral Tablet (Lipitor) TAKE ONE TABLET BY MOUTH EVERY DAY 90 Tablet 1 Eliquis 5 MG Oral Tablet TAKE ONE TABLET BY MOUTH TWICE A DAY; MORNING AND BEFORE BEDTIME 180 Tablet 3 Furosemide 40 MG Oral Tablet (Lasix) TAKE TWO TABLETS BY MOUTH EVERY MORNING AND ONE TABLET IN THE AFTERNOON 270 Tablet 3 No current facility-administered medications for this visit. Allergies Review of patient's allergies indicates: Allergen Reactions Lisinopril Edema face/lips/tongue Family History Family History Problem Relation Age of Onset Diabetes Uncle (Unspecified) Diabetes Uncle (Unspecified) Diabetes Aunt (Unspecified) Diabetes Aunt (Unspecified) Hypertension Mother MVA age 69 Cancer Father lung - age 54 Diabetes Brother Social History Social History Tobacco Use Smoking status: Former Types: Cigarettes Quit date: 11/02/1980 Years since quittin.5 Passive exposure: Never Smokeless tobacco: Never Substance Use Topics Alcohol use: Yes Alcohol/week: 0.0 standard drinks Comment: As of 12.19.2006, the last noted alcohol intake was 1 ounces. Vaping/E-Cigarette Use Vaping/E-Cigarette Substances Vaping/E-Cigarette Devices Review of Systems Negative for constitutional, eyes, cardiac, pulmonary, hepatic, renal, digestive, hematologic, epileptic, syncopal, musculo-skeletal, mental health, integumentary, hypertensive, lipid, arthritic, diabetic, thyroid or neurologic disorders (except as listed in the PMH and Problem List). Physical Examination: Ht 1.676 m (5' 6") | Wt 81.7 kg (180 lb 3.2 oz) | BMI 29.09 kg/m | BSA 1.95 m PHYSICAL EXAM General: This is a healthy appearing male who appears his stated age. The patient is alert and appropriately verbally conversant without hoarseness. Face: The face was inspected and no cutaneous masses or lesions were visualized. There was no erythema or edema noted. Facial movement was symmetric without weakness. No skin lesions were detected. There was no sinus tenderness elicited. The parotid and submandibular glands were normal to palpation. Eyes: Extra-ocular muscle function was intact. No nystagmus was observed. Pupils were equal. Cranial Nerves: Cranial nerves II, III, IV, and were noted to be intact via extra-ocular muscle movement testing. Cranial nerve VII noted to be intact and symmetric by facial movement. Ears: Examination of the ears revealed that the auricles were normally formed with no lesions. The external auditory canals were cleaned of any obstructing cerumen. Left tympanic membrane was intact but thickened and opaque. Right TM with a near total perforation Assessment: 77-year-old male with a profound hearing loss in the left ear and a near total perforation in the right with resultant severe mixed hearing loss on the right Plan: - will refer to otology at [facility] to see if tympanoplasty would be an option as his bone scores on the right are in the mild to moderate range. - he will follow-up in my office p.r.n.. I spent a total of 30 minutes on the date of service in preparation, delivery, and documentation ofthe care provided to the above patient, excluding any time spent on the performance of any procedures or separately billable services. documented in this encounter Nursing Notes * Kitty Madison LPN - 05/19/2023 2:33 PM EDT Chief Complaint Patient presents with Hearing Problem Patient presents today with . states he is here for his hearing. She states he has no hearing in the left ear and has a perf in the right ear. Saw Dr. Multani in 2020 who stated there couldn't be much done. They want a second opinion on this. No ear pain. Has some ear drainage. No recent hearing test. documented in this encounter Plan of Treatment Upcoming Encounters Date Type Specialty Care Team Description 05/19/2023 Laboratory [facility] [address] [place] [address] Arrived 05/27/2023 Office Visit Pharmacy [facility] [address] [place] [address] 06/26/2023 Nutrition Services Nutrition Services Dinah Mohamud RDN [address] [facility] [place] [address] 06/26/2023 Office Visit Podiatry Kylie Burroughs DPM [address] [place] [address] [place] [address] 07/13/2023 Office Visit Cardiology Del Díaz Jr., DO 08/05/2023 Office Visit Otolaryngology Jose Antonio Su MD [address] [place] [address] 09/03/2023 Office Visit Family [facility] James Maria DO [address] [place] [address] 09/11/2023 Office Visit Dermatology Lily Piedra MD 02/08/2024 Office Visit [facility] James Maria DO [address] [place] [address] Scheduled Procedures Name Priority Associated Diagnoses Date/Ti me COLONOSCOPY FLEXIBLE PROXIMA L DIAGNOSTIC Recall Encounter for screening colonoscopy Scheduled Referrals Name Type Priority Associated Diagnoses Orde r Schedule OTOLARYNGOLOGY REFERRAL OP Referral Within 3 days (urgent) Mixed conductive and sensorineural hearing loss of both ears Ordered: 02/03/2023 Health Maintenance Due Date Last Done Comments [...] as of this encounter Visit Diagnoses Diagnosis Bilateral hearing loss, unspecified hearing loss type- Primary documented in this encounter Advance Directives Healthcare Agents on File Name Relationship Healthcare Agent Relationshi p Communication Farhana Jaz Spouse Health Care Agent Care Teams Human Resources Director Relationship Specialty Start Date End Date James Maria DO [address] [place] [address] PCP - General Family Medicine 06/07/18 documented as of this encounter
--- OUTSIDE RECORDS SUMMARY | 2023-07-31 19:41 | External Medical Summary | Summary of Care ---
Author Name Unknown Organization [facility] Address [address] [facility] [place] [address] Phone [phone] Care Team Providers Care Baking Assistant Name Role Phone Rylan Mariar Sophy Primary Care Provider Reason for Visit * Reason Comments case management Encounter Details Date Type Department Care Team Description 05/13/2023 Group Dynamics InstructorStrip Deburrer [address] [place] [address] Marga Leong, RN Medical home patient encounter* Allergies Active Allergy Reactions Severity Noted Date Comments Lisinopril Edema face/lips/tongue High 04/05/2018 documented as of this encounter (statuses as of 05/13/2023) Medications Medication Sig Dispensed Refills Start Date [...] 11 2 Active FreeStyle Rose Marie 2 [place] Device Test blood sugars four times daily [...] Information Patient not taking.Reported on 05/07/2023 Pen Reading 32G X 4 MMIndications:Type 2 diabetes mellitus with hemoglobin A1c goal of less than 8.0% ([facility]) Use as directed. Use to inject insulin up to 4 times daily. 400 Each 3 3 Active Pen Reading 32G X 4 MM Use as directed. Use to inject insulin up to 4 times daily. 30 Each 0 3 Active Doxycycline Hyclate 100 MG Oral Tablet Take 1 Tablet by mouth in the morning and 1 Tablet before bedtime. 0 3 Active Insulin Glargine Solostar 100 UNIT/ML Subcutaneous Solution Pen-injectorIndicatio ns:Type 2 diabetes mellitus with hemoglobin A1c goal of less than 8.0% ([facility]) Inject 12 units subcutaneously at bedtime 15 [...] as of this encounter (statuses as of 05/13/2023) Active Problems Problem Noted Date Medical home [...] with fat layer exposed 01/09/2022 Atherosclerosis of [place] coronary arter y without angina pectoris 01/09/2022 [...] as of this encounter (statuses as of 05/13/2023) Resolved Problems Problem Noted Date Resolved Date [...] as of this encounter (statuses as of 05/13/2023) Immunizations Name Administration Dates Next Due COVID-19 [...] as of this encounter Progress Notes * Marga Leong RN - 05/13/2023 10:35 AM EDT 1. Follow-up Post Discharge 2. Attempted Phone Call Third Attempt 3. Call Outcome Left Voicemail/Message 4. Plan To send letter documented in this encounter Plan of Treatment Upcoming Encounters Date Type Specialty Care Team Description 05/19/2023 Office Visit Otolaryngology Gurinder Arias DO [address] [place] [address] 05/27/2023 Office Visit Pharmacy [facility] Erica [address] [place] [address] 06/26/2023 Nutrition Services Nutrition Services Cade Dinahty Lowry, RDN [address] [place] [address] 06/26/2023 Office Visit Podiatry Kylie Burroughs, DPMarga [address] [place] [address] 07/13/2023 Office Visit Cardiology Del Díaz Jr., DO 09/03/2023 Office Visit Family Medicine James Maria, [address] [address] 09/11/2023 Office Visit Dermatology Lily Piedra MD 02/08/2024 Office Visit Family Medicine James Maria, [address] [place] [address] Scheduled Procedures Name Priority Associated Diagnoses Date/Ti [...] as of this encounter Visit Diagnoses Diagnosis Medical home patient encounter- Primary Other specified examination documented in this encounter Advance Directives Healthcare Agents on File Name Relationship Healthcare [facility] Communication Farhana Sebastian Spouse Health Care Agent Care Teams Baking Assistant Relationship Specialty Start Date End Date James Maria DO [address] [place] [address] PCP - General Family Medicine 06/07/18 documented as of this encounter
--- OUTSIDE RECORDS SUMMARY | 2023-07-31 19:41 | External Medical Summary ---
Author Name Unknown Address Unknown Organization K[facility] - [address] [place] [address] Laboratory Report Ordering Provider Test Date Status BENJAMIN BA 05/19/2023 15:25:03 Final Observation Date Value Abnormality Reference (Units ) Status HbA1C 05/19/2023 15:25:03 9.4 Above high normal 4. 0-5.6 (%) Final Performing Location [facility] - [address] [place] [address]
--- OUTSIDE RECORDS SUMMARY | 2023-07-31 19:41 | External Medical Summary ---
Author Name Unknown Address Unknown Organization K01[facility] [place] [address] [place] [address] Laboratory Report Ordering Provider Test Date Status MEJIABENJAMIN BLANTON 05/19/2023 15:25:03 Final Observation Date Value Abnormality Reference (Units ) Status BUN 05/19/2023 15:25:03 24 Above high normal 6-20 (mg/dL) Final Creatinine 05/19/2023 15:25:03 1.4 Above high normal 0.6-1.2 (mg/dL) Final Glomerular filtration rate/1.73 sq M.predicted [Volume Rate/Area] in Serum, Plasma or Blood by Creatinine-based formula (CKD-EPI) 05/19/2023 15:25:03 54 Below low normal >=60 (mL/min) Final Performing Location [facility] [place] [address] [place] [address]
--- OUTSIDE RECORDS SUMMARY | 2023-07-31 19:42 | External Medical Summary | Summary of Care ---
Author Name Unknown Organization [facility] [address] [facility] [address] Phone [phone] Care Team Providers Care Ball Worker Name Role Phone James Maria Primary Care Provider Reason for Visit * Reason Onset Date Comments Hospital Follow-Up Pt being seen for hospital f/u apt he had UTI and also for vomiting and had high sugar. Was just seen in Urology today. Hospital Follow-Up 05/11/2023 Encounter Details Date Type Department Care Team Description 05/11/2023 Office Visit Family Practice [facility] [address] [place] [address] Angela Rudd DO [address] [place] [address] Hospital discharge follow-up*; Anaplasmosis; Bladder outlet obstruction; Atrial fibrillation with RVR ([facility]); Electrolyte abnormality; Type 2 diabetes mellitus with hemoglobin A1c goal of less than 8.0% ([facility]) Allergies Active Allergy Reactions Severity Noted Date Comments Lisinopril Edema face/lips/tongue High 04/05/2018 documented as of this encounter (statuses as of 05/11/2023) Medications Medication Sig Dispensed Refills Start Date [...] 11 2 Active FreeStyle Rose Marie 2 [place] Device Test blood sugars four times daily [...] Information Patient not taking.Reported on 05/07/2023 Pen [place] 32G X 4 MMIndications:Type 2 diabetes mellitus with hemoglobin A1c goal of less than 8.0% (HCC) Use as directed. Use to inject insulin up to 4 times daily. 400 Each 3 3 Active Pen [place] 32G X 4 MM Use as directed. [...] as of this encounter (statuses as of 05/11/2023) Active Problems Problem Noted Date Medical home [...] with fat layer exposed 01/09/2022 Atherosclerosis of [place] coronary arter y without angina pectoris 01/09/2022 [...] as of this encounter (statuses as of 05/11/2023) Resolved Problems Problem Noted Date Resolved Date [...] with worsening symptoms. Will plan nurse or [facility] provider telemedicine recheck visit one week to [...] as of this encounter (statuses as of 05/11/2023) Immunizations Name Administration Dates Next Due COVID-19 [...] Passive Smoke Exposure: Never Smokeless Tobacco: Never Tobacco Cessation:Counseling Given: Not Answered Alcohol Use Standard Drinks/Week Comments Yes 0 [...] Sign Reading Time Taken Comments Blood Pressure 106/60 05/11/2023 4:38 PM EDT Pulse 60 05/11/2023 4:38 PM EDT Temperature 36.7 C (98 F) 05/11/2023 4:38 PM EDT Respiratory Rate 18 05/11/2023 4:38 PM EDT Oxygen Saturation - - Inhaled Oxygen Concentration - - Weight 84.8 kg (187 lb) 05/11/2023 4:38 PM EDT Height - - Body Mass Index 30.18 04/20/2023 3:34 PM EDT documented in this encounter Progress Notes * Angela Meeks Tobin, DO - 05/11/2023 4:48 PM EDT Subjective: Selvin Sebastian is a 77 year old male. Chief Complaint Patient presents with Hospital Follow-Up Pt being seen for hospital f/u apt he had UTI and also for vomiting and had high sugar. Was just seen in Urology today. There are no exam notes on file for this visit. HPI: This is a 77 year old male with PMHx as below presents with [facility] hospital follow up Admitted 04/29 Discharged 05/05 [address] [place] family property over last few months Did not feel well - decreased responsiveness at wound care appt Dx anaplasmosis, a fib with RVR CT chronic GORDON L >R hydronephrosis with urinary retention yee placed, saw urology today. Started flomax. Has follow up appt next week ? 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 Did have MRI brain in hospital no acute abnormaltiies Rose Marie was placed - has MTM follow up No concerns today Health Maintenance Due Topic Date Due B-12 Never done Patient Active Problem List Diagnosis Code Mixed conductive and sensorineural hearing loss of right ear with restricted hearing of left ear H90.A31 Type 2 diabetes mellitus with hemoglobin A1c goal of less than 8.0% (HCC) E11.9 Dyslipidemia E78.5 HTN, goal below 130/80 I10 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, bilateral M21.961, M21.962 Type 2 diabetes mellitus with polyneuropathy (HCC) E11.42 Tympanic membrane perforation, 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, 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, with fat layer exposed ([facility]) E11.621, L97.512 Atherosclerosis of [place] co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 angina pectoris I25.10 Hoarding behavior F42.3 Paroxysmal atrial fibrillation ([facility]) I48.0 Moderate aortic stenosis I35.0 Overweight (BMI 25.0-29.9) E66.3 Unsteady gait when walking R26.81 Cellulitis of toe of left foot L03.032 Nonrheumatic aortic valve stenosis I35.0 Chronic heart failure with preserved ejection fraction (HCC) I50.32 Hypertensive heart disease with chronic diastolic congestive heart failure (HCC) I11.0, I50.32 Medical home patient encounter Z00.8 Current Outpatient Medications Medication Sig Dispense Refill EqalixTOUCH ULTRA BLUE STRP USE TO CHECK GLUCOSE 4 TIMES DAILY 100 Strip 0 EqalixTOUCH DELICA LANCETS 33G MISC USE ONE TO [...] 2 Each 11 FreeStyle Rose Marie 2 [place] Device Test blood sugars four times daily 1 Each 0 Insulin Aspart 100 UNIT/ML Injection Solution 5 Units. Pt takes 5 to 6 units before meals Gentamicin Sulfate 0.1 % External Ointment Apply to wounds on hands twice daily 15 g 1 Pen [place] 32G X 4 MM Use as directed. Use to inject insulin up to 4 times daily. 400 Each 3 Pen [place] 32G X 4 MM Use as directed. [...] TABLET IN THE AFTERNOON 270 Tablet 3 Cephalexin 500 MG Oral Capsule (Keflex) Take 1 Capsule by mouth in the morning and 1 Capsule atnoon and 1 Capsule before bedtime. (Patient not taking: Reported on 02/03/2023) Afuyadw-Hxkzst-Vughq Pertussis 5-2.5-18.5 LF-MCG/0.5 Suspension Prefilled Syringe (Boostrix) Administer 0.5ml intramuscularly as directed 0.5 mL 0 Silver sulfADIAZINE 1 % External Cream (Silvadene) Apply to wounds on hands 100 g 1 Ciprofloxacin HCl 500 MG Oral Tablet (Cipro) Take 1 Tablet by mouth in the morning and 1 Tabletbefore bedtime. (Patient not taking: Reported on 05/07/2023) 14 Tablet 0 No current facility-administered medications for this visit. Past Medical History: Diagnosis Date Allergic rhinitis 2004 BPH with obstruction/lower urinary tract symptoms 03/13/2020 [...] performed by Agustin Saravia MD at ENDOSCOPY [facility] FOOT/TOE SURGERY NEC 11/14 L foot deformity L-/S-SPINE PARAVERTEBRAL FACET INJ,1 LEVEL 05/03/2020 L-/S-SPINE PARAVERTEBRAL FACET INJ, 1 LEVEL performed by Avtar Merchant DO at OR [facility] MASTOID SURGERY REVISION/APICECTOMY age 18 [facility] SHOULDER ARTHROSCOPY SURGERY 01/07 spur removed Review of patient's allergies indicates: Allergen Reactions Lisinopril Edema face/lips/tongue Family History Problem Relation Age of Onset Diabetes Uncle (Unspecified) Diabetes Uncle (Unspecified) Diabetes Aunt (Unspecified) Diabetes Aunt (Unspecified) Hypertension Mother MVA age 69 Cancer Father lung - age 54 Diabetes Brother Family Status Relation Status UNCLE (Not Specified) UNCLE (Not Specified) AUNT (Not Specified) AUNT (Not Specified) Mo (Not Specified) Fa (Not Specified) Bro (Not Specified) Social History Socioeconomic History Marital status: Spouse name: Farhana Number of children: 3 Years of education: Not on file Highest education level: Not on file Occupational History 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 Drug use: No Sexual activity: Not on file Other Topics Concern Not on file Social History Narrative Not on file Social Determinants of Health Financial Resource Strain: Not on file Food Insecurity: No Food Insecurity Worried About Running Out of Food in the Last Year: Never true Ran Out of Food in the Last Year: Never true Transportation Needs: Not on file Physical Activity: Not on file Stress: Not on file Social Connections: Not on file Intimate Partner Violence: Not on file Housing Stability: Not on file Review of Systems: As per HPI all other ROS negative. Wt Readings from Last 3 Encounters: 05/11/23 84.8 kg (187 lb) 06/19/23 85.3 kg (188 lb 1.6 oz) 02/18/23 92.1 kg (203 lb 1.6 oz) Results for orders placed or performed in visit on 04/01/23 CULTURE, WOUND, SUPERFICIAL, AEROBIC Result Value Ref Range Culture Growth Many Staphylococcus, coagulase negative (A) Susceptibility Staphylococcus, coagulase negative - MICROBROTH DILUTIONS Clindamycin Susceptible Erythromycin Resistant Oxacillin* Resistant * Oxacillin/Methicillin resistant Staphylococci are considered clinically resistant to all Beta-lactam (Penicillin and Cephalosporin) antibiotics. Quinolone antibiotics should also not be used for Staphylococci that are Oxacillin resistant. Penicillin G Resistant Tetracycline Resistant Trimeth/Sulfamethoxazole Resistant Vancomycin Susceptible SURGICAL PATHOLOGY Result Value Ref Range Final Diagnosis A. Skin, R dorsal hand, punch: Intradermal cleft with fibrin (see comment) Comment: A trichrome/elastin stain shows that the material within and surrounding the cleft contains degenerated elastin. 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 The material surrounding the cleft is negative for CK5/6 and Thioflavin-T, making bullous amyloidosis unlikely. 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 B. Skin, R dorsal hand perilesional biopsy, direct immunofluorescence: IgG: Staining of dermal amorphous material IgA: Similar but less intense staining as IgG C3: Granular C3 at the dermal epidermal junction and in dermal papillae Fibrinogen: Staining of the dermal amorphous material and surrounding dermis +/- Controls: Appropriate References: Zay A, Gissel L, Devonte JR, Barry JL. Bullous solar elastosis. Am J Dermatopathol. 2005 Dec;27(1):34-5. doi: 10.1097/[id number]. PMID: 99127183. Darryl BT, Nikos UP, Navid B. Bullous solar elastosis. J Am Acad Dermatol. 1995;34(5 Pt 1):856-8. doi: 10.1016/n5055-[address]21(42)37584-8. PMID: 3362795. 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 Skin. punch Received in formalin with a container labeled with "Selvin Sebastian", "[id number]" and "1945" and " right dorsal hand". Received is a 0.4 x 0.4 cm skin punch. The skin surface is mckeon, dull. The underlying tissue is inked. The specimen is wrapped and submitted bisected in cassette A1. Gross By: CAM B. Skin. biopsy, immunofluorescence Received in [place]'s solution with a container labeled with "Selvin Sebastian", "[id number]" and "1945" and " right dorsal hand Perilesional". Received is a 0.3 x 0.2 cm skin punch. The skin surface is mckeon, dull. The specimen is washed, snap frozen, and slides are cut for immunofluorescence. Gross By: CAM Microscopic Description A: Hematoxylin and eosin stained sections of this punch biopsy reveal a hyperkeratotic stratum corneum overlying an acanthotic epidermis. The underlying dermis shows marked solar elastosis with focalclefting and cracking of the amorphous bluish material and focal intradermal cystic areas, some associated with fibrin. There is a superficial perivascular lymphocytic infiltrate with focal red bloodcell extravasation. B: Microscopic examination performed. Sign Out Location Pathologist sign out performed at [facility] ([facility] [address] [place] [address]. Photographic images and diagrams represent diaz findings in this case; they are not intended to replace a complete review of the final diagnostic report. The following statement applies to Flow Cytometry, Histology, In situ Hybridization Assays and Molecular Genetics. This test was developed and performed at [facility] and its performance characteristics determined by [employer]. It has not been cleared or approved by the U.S. Food and Drug Administration. The FDA has determined that such clearance or approval is not necessary. This test is used for clinical purposes. It should not be regarded as investigationalor for research. Special stains, including histochemical stains, and studies using immunologic and KALINA methodology (where applicable) are performed with appropriate positive and negative control reactions. OBJECTIVE: Physical Exam: BP 106/60 | Pulse 60 | Temp 36.7 C (98 F) (Tympanic) | Resp 18 | Wt 84.8 kg (187 lb) | BMI 30.18 kg/m | BSA 1.99 m General: alert, healthy and no distress Heart: regular rate & rhythm and pos JESSICA Lungs: lungs clear to auscultation Hospital discharge follow-up (Primary) - DISCH MED RECON CUR MED LIS Anaplasmosis - CBC WITH WBC DIFFERENTIAL; Future; Expected date: 05/11/2023 Bladder outlet obstruction - CBC WITH WBC DIFFERENTIAL; Future; Expected date: 05/11/2023 Atrial fibrillation with RVR (HCC) - CBC WITH WBC DIFFERENTIAL; Future; Expected date: 05/11/2023 Electrolyte abnormality - COMPREHENSIVE METABOLIC PANEL; Future; Expected date: 05/11/2023 Type 2 diabetes mellitus with hemoglobin A1c goal of less than 8.0% (HCC) Angela Rudd DO documented in this encounter Plan of Treatment Upcoming Encounters Date Type Specialty Care Team Description 05/19/2023 Office Visit Otolaryngology Gurinder Arias DO [address] [place] [address] 05/27/2023 Office Visit Pharmacy [facility] Erica [address] [place] [address] 06/26/2023 Nutrition Services Nutrition Services Dinah Mohamud, ALFIE [address] [place] [address] 06/26/2023 Office Visit Podiatry Kylie Burroughs, N[address] [place] [address] 07/13/2023 Office Visit Cardiology Del Díaz Jr., DO 09/03/2023 Office Visit Family Medicine James Maria DO [address] [place] [address] 09/11/2023 Office Visit Dermatology Lily Piedra MD 02/08/2024 Office Visit Family Medicine James Maria, [address] [place] [address] Scheduled Orders Name Type Priority Associated Diagnoses Orde r Schedule CBC WITH WBC DIFFERENTIAL Lab Routine Anaplasmosis Bladder outlet obstruction Atrial fibrillation with RVR (HCC) Expected: 05/11/2023 (Approximate), Expires: 05/11/2024 COMPREHENSIVE METABOLIC PANEL Lab Routine Electrolyte abnormality Expected: 05/11/2023 (Approximate), Expires: 05/10/2024 Scheduled Procedures Name Priority Associated Diagnoses Date/Ti me COLONOSCOPY FLEXIBLE PROXIMA L DIAGNOSTIC Recall Encounter for screening colonoscopy Health Maintenance Due Date Last Done Comments B-12 1963 Influenza Vaccine (FLU shot) (#1) 2023 08/05/2022, 08/10/2021, 08/10/2021, Additional history exists HbA1c 07/30/2023 01/27/2023, 08/04, 05/21/2022, Additional history exists DIABETES-EYE EXAM 09/01/2023 09/01/2022, , 12/15/2019, Additional [...] as of this encounter Visit Diagnoses Diagnosis Hospital discharge follow-up- Primary Other follow-up examination Anaplasmosis Other ehrlichiosis Bladder outlet obstruction Bladder neck obstruction Atrial fibrillation with RVR (HCC) Atrial fibrillation Electrolyte abnormality Electrolyte and fluid disorders not elsewhere classified Type 2 diabetes mellitus with hemoglobin A1c goal of less than 8.0% ([facility]) documented in this encounter Advance Directives Healthcare Agents on File Name Relationship Healthcare Agent [facility] Communication Farhana Sebastian Spouse Health Care Agent Care Teams Ball Worker Relationship Specialty Start Date End Date James Maria DO [address] [place] [address] PCP - General Family Medicine 06/07/18 documented as of this encounter
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
--- OUTSIDE RECORDS SUMMARY | 2023-07-31 19:42 | External Medical Summary | Summary of Care ---
Author Name Unknown Organization [facility] Address [address] [address] Phone [phone] Care Team Providers Care Clinical Evaluator Name Role Phone Rylan Mariar Sophy Primary Care Provider Reason for Referral * Evaluate & Treat - Unlimited Visits (Within 10 days (routine)) - Authorized Specialty Diagnoses / Procedures Referred By Collin leigh Referred To Contact Pharmacist / Pharmacy Diagnoses Type 2 diabetes mellitus with hemoglobin A1c goal of less than 8.0% ([facility]LY [facility]) Michael Hunt DO [address] [place] [address] Referral ID Status Reason Start Date Expiration Date Visits Requested Visits Authorized [id number] Authorized Specialty Services Required 05/08/2023 99 99 Question Answer Referral Priority Within 10 days (routine) Department: Primary Care Reason for Referral: DM Target A1c: < 8 Comments Pharmacist Medication Therapy Management: Minimum frequency patient should be seen in person for medication management: as appropriate per clinical condition and patient status By my signature, I understand that my patient Selvin Sebastian will have his medication therapy managed by the [facility] Medication Therapy Disease Management [facility] ([facility]) per established policies, procedures, and protocols. I also certify that this referral may serve as an initiation of service for the management of drug therapy in the above noted patient. [facility] providers will be responsible for scheduling patient visits, obtaining appropriate laboratory studies, and adjusting medication management therapy per patient's need, in addition to those roles spelled out in the clinic policy, procedures, and drug management protocols. I understand that the service provided by the [facility] Clinic is voluntary and have informed patient that they can refuse the service at their discretion. I am aware that the [facility] Clinic will provide me with a copy of the patient encounter via my [employer]. I authorize the [facility] to carry out these activities on my behalf. I consider this program to be a necessary part of the patient's medical care. Michael Hunt DO * Evaluate & Treat - Unlimited Visits (Within 10 days (routine)) - Authorized Specialty Diagnoses / Procedures Referred By Contac t Referred To Contact Maid Supervisor / Nutrition Services Diagnoses Type 2 diabetes mellitus with hemoglobin A1c goal of less than 8.0% ([facility]) Michael Hunt DO [address] [place] [address] Referral ID Status Reason Start Date Expiration Date Visits Requested Visits Authorized [id number] Authorized Specialty Services Required 05/08/[phone] Question Answer Referral Priority Within 10 days (routine) Reason for Referral Type 2 Diabetes Is this a newly diagnosed condition? No Comments This referral is for Diabetes Self-Management Training (DSMT) by a recognized [place] [employer] (ADA) museum educator: Nurse (RN), Registered Dietitian Supervisory Clerk (RDN), and/or Diabetes Medical Nutrition Therapy (MNT) Management (dietitian only). Diabetes educators are responsible for assessing the participant's diabetes education needs, and providing diabetes self-management training in accordance with the standards set by the ADA for DSMT. Any adjustment in diabetes therapy will be made within the guidelines of standards of practice and [facility] approved policies and procedures. I understand that the museum educator will keep me informed. Areas of Education: Pathophysiology Nutrition Physical Activity Medications Monitoring Acute Complications Chronic Complications Psychosocial Management Promote Health/Behavior Change Participant will be offered 1:1 education training if there is a lack of classes available within 2 months. Providers can also order 1:1 training if indicated for participant for the following reasons: 1:1 Training for Insulin Initiation Participant Inappropriate for Class Setting By my electronic signature, I understand that my patient will be offered the comprehensive ADA content area above unless deemed not appropriate of I specify otherwise here: Reason for Visit * Reason Onset Date Comments Advice 05/08/2023 Encounter Details Date Type Department Care Team Description 05/08/[address] [facility] [address] [place] [address] James Maria DO [address] [place] [address] Advice Allergies Active Allergy Reactions Severity Noted Date Comments Lisinopril Edema face/lips/tongue High 04/05/2018 documented as of this encounter (statuses as of 05/11/2023) Medications Medication Sig Dispensed Refills Start Date End Date Status ONETOUCH ULTRA BLUE STRP USE TO CHECK GLUCOSE 4 TIMES DAILY 100 Strip 0 11/13/19 17 Active ONETOUCH DELICA LANCETS 33G MISC USE ONE TO CHECK GLUCOSE 4 TIMES DAILY 100 Each 0 11/13/19 17 Active Sildenafil Citrate (VIAGRA) 50 MG TabletIndications:I mpotence of organic origin Take 1 Tab by mouth as needed for Erectile Dysfunction. 5 Tab 6 08/24/20 17 Active Glucose Blood (ONETOUCH VERIO) STRP Use up to 4 times a day E11.9 300 Strip 3 08/24/20 17 Active Fluorouracil 5 % External Cream (Efudex) Apply to Scalp, ears, and temples twice a day for three weeks. 40 g 1 07/05/20 21 Active Insulin Syringe-Needle U-100 30G X 03/17" 0.3 MLIndications:Type 2 diabetes mellitus with polyneuropathy (HCC),Type 2 diabetes mellitus with hemoglobin A1c goal of less than 8.0% (HCC) Use up to 4 x a day for insulin dosing E11.9 3 Each 1 09/05/20 21 Active FreeStyle Rose Marie 2 Sensor Test blood sugars four times daily 2 Each 11 12/27/19 22 Active FreeStyle Rose Marie 2 [place] Device Test blood sugars four times daily 1 Each 0 12/27/19 Active Insulin Aspart 100 UNIT/ML Injection Solution 5 Units. Pt takes 5 to 6 units before meals 0 05/16/20 Active Gentamicin Sulfate 0.1 % External OintmentIndications :Secondary impetiginization Apply to wounds on hands twice daily 15 g 1 01/29/20 Active Cephalexin 500 MG Oral Capsule (Keflex) Take 1 Capsule by mouth in the morning and 1 Capsule at noon and 1 Capsule before bedtime. 0 11/24/19 Active Silver sulfADIAZINE 1 % External Cream (Silvadene) Apply to wounds on hands 100 g 1 04/01/20 Active Ciprofloxacin HCl 500 MG Oral Tablet (Cipro) Take 1 Tablet by mouth in the morning and 1 Tablet before bedtime. 14 Tablet 0 04/01/20 Active Additional Information Patient not taking.Reported on 05/07/2023 [place] 32G X 4 MMIndications:Type 2 diabetes mellitus with hemoglobin A1c goal of less than 8.0% ([facility]) Use as directed. Use to inject insulin up to 4 times daily. 400 Each 3 05/06/20 Active [place] 32G X 4 MM Use as directed. Use to inject insulin up to 4 times daily. 30 Each 0 05/06/20 Active Doxycycline Hyclate 100 MG Oral Tablet Take 1 Tablet by mouth in the morning and 1 Tablet before bedtime. 0 05/05/20 Active Insulin Glargine Solostar 100 UNIT/ML Subcutaneous Solution Pen-injector (Lantus SoloStar)Indication s:Type 2 diabetes mellitus with hemoglobin A1c goal of less than 8.0% ([facility]) Inject 12 units subcutaneously at bedtime 15 mL 3 05/08/20 Active Furosemide 40 MG Oral Tablet (Lasix) Take 2 tablets in the morning, 1 tablet in the afternoon 270 Tablet 3 11/17/19 23 023 Discontinued(L egacy prescription brought in as discontinued) Eliquis 5 MG Oral TabletIndications:a fib Take 1 Tablet by mouth in the morning and 1 Tablet before bedtime. 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 TAKE ONE CAPSULE BY MOUTH EVERY MORNING 100 Capsule 2 01/02/20 23 023 Discontinued(L egacy prescription brought in as discontinued) NovoLOG FlexPen 100 UNIT/ML Subcutaneous Solution Pen-injector (insulin aspart) INJECT UNDER THE SKIN 5 UNITS THREE TIMES A DAY WITH MEALS 15 mL 3 01/16/20 23 023 Discontinued(L egacy prescription brought in as discontinued) Lantus SoloStar 100 UNIT/ML Subcutaneous Solution Pen-injector (Insulin Glargine Solostar)Indication s:Type 2 diabetes mellitus with hemoglobin A1c goal of less than 8.0% (HCC) INJECT 15 UNITS UNDER THE SKIN BEFORE BEDTIME 15 mL 3 02/10/20 23 023 Discontinued metFORMIN HCl ER 500 MG Oral Tablet Extended Release 24 Hour (Glucophage XR)Indications:Type 2 diabetes mellitus with diabetic neuropathy, with long-term current use of insulin (HCC) TAKE TWO TABLETS BY MOUTH EVERY MORNING 180 Tablet 3 02/27/20 23 023 Discontinued(L egacy prescription brought in as discontinued) Metoprolol Tartrate 25 MG Oral Tablet (Lopressor)Indicati ons:Chronic atrial fibrillation (HCC) TAKE ONE TABLET BY MOUTH TWICE A DAY -- IN THE MORNING AND BEFORE BEDTIME 180 Tablet 1 04/29/20 23 023 Discontinued(L egacy prescription brought in as discontinued) documented as of this encounter (statuses as [...] with fat layer exposed 01/09/2022 Atherosclerosis of [place] coronary arter y without angina pectoris 01/09/2022 [...] 30 Mcg, IM, 12 yrs and above ([employer]) 11/17/2022 Pneumococcal Conjugate Vacc, 13 Valent (Prevnar) [...] encounter Miscellaneous Notes * Telephone Encounter - Celina Lau LPN - 05/11/2023 2:26 PM EDT Instructions per Dr. Hunt as listed below for BS parameters and Lantus placed in letter form and faxed to [facility], attn: Kristi Munoz RN At [phone]. Kristi at [facility] advised information will be faxed as requested. * Telephone Encounter - Ananya Monk - 05/11/2023 12:00 PM EDT Patient scheduled with clinical informatics educator. * Telephone Encounter - Sara Woods LPN - 05/08/2023 4:47 PM EDT Kristi returned call. Informed of message. Verbalized understanding. She requested orders for lantus and parameters on BS to be fax to [facility] FAX [phone] * Telephone Encounter - Naveen Johnson RN - 05/08/2023 4:37 PM EDT Called, left message for Kristi Munoz RN home health nursing to return call to nurse call center. Please inform Kristi of Dr. Hunt's previous message. FYI to [facility]. * Telephone Encounter - Michael Hunt DO - 05/08/2023 4:19 PM EDT Advise decrease Lantus insulin to 12 units at bedtime and continue home glucose monitoring. Advise prolonged fasting. Continue to monitor home glucose levels and call for blood glucose less than 50 or greater than 400 Advise referral [facility] pharmacy and museum educator * Telephone Encounter - Beverly Storey LPN - 05/08/2023 3:22 PM EDT Provider to address: Dr. Maria Reason for Call: Advice Contact: Telephone Call Contact Type: Care Coordination Outcome: HH Concerns Kristi RN Calling from: [facility] Report/Concerns of: BS Symptoms: No symptoms at this time. Vitals: BP 115/75, P 61- has been dropping to 50 and will then go back up, RR 17, T 96.0, SP O2 98%RA, Lung sounds CTA but diminished at the bases, BS 68 Narrative: Reports that the pt's BSG has been going below 70's at times since 10 PM last night. BSG at this time is 68 and was up to 115 earlier today at 0530. Pt has not taken any insulin since 8 PM last night but did take Metformin this morning. Pt had dinner last night around 5-6 PM. Since the pt has not had a full meal. Has drank soda and iseating cheese-it's now. Pt's eating schedule is off since coming home from the hospital. Is having the pt drink hot chocolate at this time. Is going to speak with their social scientist to see what resources can be set up for the pt. Asks that she is called back with advice due to the pt being hard of hearing. Kristi can be reached at [phone]. Please advise. Total Time including non face to face (minutes): 15 * Telephone Encounter - MICHEL Norman - 05/08/2023 3:18 PM EDT Reason for patient's call: report on patient Low blood sugars Caller was transferred to Beverly at the nurse line. documented in this encounter Plan of Treatment Upcoming Encounters Date Type Specialty Care Team Description 05/11/2023 Office Visit Family Medicine Angela Rudd, [address] [place] [address] 05/19/2023 Office Visit Otolaryngology Gurinder Arias, [address] [place] [address] 05/27/2023 Office Visit Pharmacy [facility], [facility] Erica [address] [place] [address] 06/26/2023 Nutrition Services Nutrition Services Dinah Mohamud, RDN [address] [place] [address] 06/26/2023 Office Visit Podiatry Kylie Burroughs, REMEDI[facility] [address] [place] [address] [place] [address] 07/13/2023 Office Visit Cardiology Del Díaz Jr., DO 09/03/2023 Office Visit Family Medicine James Maria DO [address] [place] [address] 09/11/2023 Office Visit Dermatology Lily Piedra MD 02/08/2024 Office Visit Family Medicine James Maria DO [address] [place] [address] Scheduled Procedures Name Priority Associated Diagnoses Date/Ti me COLONOSCOPY FLEXIBLE PROXIMA L DIAGNOSTIC Recall Encounter for screening colonoscopy Scheduled Referrals Name Type Priority Associated Diagnoses Orde r Schedule DIABETES MANAGEMENT EDUCATION (ADA) REFERRAL Referral Within 10 days (routine) Type 2 diabetes mellitus with hemoglobin A1c goal of less than 8.0% (HCC) Ordered: 05/08/2023 PHARMACIST MEDS THERAPY MGMT REFERRAL OP Referral Within 10 days (routine) Type 2 diabetes mellitus with hemoglobin A1c goal of less than 8.0% (HCC) Ordered: 05/08/2023 Health Maintenance Due Date Last Done Comments [...] than 8.0% ([facility])- Primary documented in this encounter Advance Directives Healthcare Agents on File Name Relationship Healthcare Agent Relationshi p Communication Farhana [place] Spouse Health Care Agent Care Teams Clinical Evaluator Relationship Specialty Start Date End Date James Maria DO [address] [place] [address] PCP - General Family Medicine 06/07/18 documented as of this encounter
--- OUTSIDE RECORDS SUMMARY | 2023-07-31 19:42 | External Medical Summary | Summary of Care ---
Author Name Unknown Organization [facility] Address [address] [facility] [place] [address] Phone [phone] Care Team Providers Care Stitcher Around Name Role Phone Yariel Mariavor Sophy DO Primary Care Provider Reason for Visit * Reason Comments eRx-Medication Refill Encounter Details Date Type Department Care Team Description 04/27/2023 Refill Family Practice [facility] [address] [place] [address] Kenney Walton DO [address] [place] [address] Chronic atrial fibrillation (HCC) Allergies Active Allergy Reactions Severity Noted Date Comments Lisinopril Edema face/lips/tongue High 04/05/2018 documented as of this encounter (statuses as of 04/30/2023) Medications Medication Sig Dispensed Refills Start Date [...] 11 2 Active FreeStyle Rose Marie 2 [place] Device Test blood sugars four times daily 1 Each 0 2 Active Pen [place] 32G X 4 MMIndications:Type 2 diabetes mellitus with hemoglobin A1c goal of less than 8.0% ([facility]) Use as directed . Use to inject insulin up to 4 times daily. 400 Each 3 2 Active Insulin Aspart 100 UNIT/ML Injection Solution 5 Units. Pt takes 5 to 6 units before meals 0 2 Active Furosemide 40 MG Oral Tablet (Lasix) Take 2 tablets in the morning, 1 tablet in the afternoon 270 Tablet 3 3 Active Eliquis 5 MG Oral TabletIndications:tip b Take 1 Tablet by mouth in the morning and 1 Tablet before bedtime. 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 0 3 Active Lantus SoloStar 100 UNIT/ML Subcutaneous Solution Pen-injector (Insulin Glargine Solostar)Indications: Type 2 diabetes mellitus with hemoglobin A1c goal of less than 8.0% ([facility]) INJECT 15 UNITS UNDER THE SKIN BEFORE BEDTIME 15 mL 3 3 Active metFORMIN HCl ER 500 MG Oral Tablet Extended Release 24 Hour (Glucophage XR)Indications:Type 2 diabetes mellitus with diabetic neuropathy, with long-term current use of insulin (HCC) TAKE TWO TABLETS BY MOUTH EVERY MORNING 180 Tablet 3 3 Active Silver sulfADIAZINE 1 % External Cream (Silvadene) Apply to wounds on hands 100 g 1 3 Active Ciprofloxacin HCl 500 MG Oral Tablet (Cipro) Take 1 Tablet by mouth in the morning and 1 Tablet before bedtime. 14 Tablet 0 3 Active Metoprolol Tartrate 25 MG Oral Tablet (Lopressor)Indication s:Chronic atrial fibrillation (HCC) TAKE ONE TABLET BY MOUTH TWICE A DAY -- IN THE MORNING AND BEFORE BEDTIME 180 Tablet 1 3 Active Metoprolol Tartrate 25 MG Oral Tablet (Lopressor)Indication s:Chronic atrial fibrillation (HCC) Take 1 Tablet by mouth in the morning and 1 Tablet before bedtime. 180 Tablet 0 3 04/29/20 23 Discontinued documented as of this encounter (statuses as of 04/30/2023) Active Problems Problem Noted Date Hypertensive heart [...] with fat layer exposed 01/09/2022 Atherosclerosis of [place] coronary arter y without angina pectoris 01/09/2022 [...] as of this encounter (statuses as of 04/30/2023) Resolved Problems Problem Noted Date Resolved Date [...] as of this encounter (statuses as of 04/30/2023) Immunizations Name Administration Dates Next Due COVID-19 [...] encounter Miscellaneous Notes * Telephone Encounter - Pinky Flores LPN - 04/30/2023 8:44 AM EDTSigned Prescriptions: Disp Refills Metoprolol Tartrate 25 MG Oral Tablet (Lop*180 Ta*1 Sig: TAKE ONE TABLET BY MOUTH TWICE A DAY -- IN THE MORNING AND BEFORE BEDTIMEAuthorizing Provider: KENNEY WALTON User: FRED DUPONT * Telephone Encounter - Fred Dupont [facility] - 04/29/2023 1:09 PM EDTSigned Prescriptions: Disp Refills Metoprolol Tartrate 25 MG Oral Tablet (Lop*180 Ta*1 Sig: TAKE ONE TABLET BY MOUTH TWICE A DAY -- IN THE MORNING AND BEFORE BEDTIME Authorizing Provider: KENNEY WALTON Ordering User: FRED DUPONT * Telephone Encounter - Jonna Deshpande [facility] - 04/29/2023 1:01 PM EDT Did you pend patient's preferred pharmacy and medication before forwarding?yes Pharmacy: [facility] Pending Prescriptions: Disp Refills Metoprolol Tartrate 25 MG Oral Tablet (Lo*180 Ta*0 Sig: TAKE ONE TABLET BY MOUTH TWICE A DAY -- IN THE MORNING AND BEFORE BEDTIME Last Visit: Visit date not found (in office), 05/27/2022 (telemedicine) Next Visit: Visit date not found If no future appointments scheduled, and last appointment is greater than a year ago, please schedule patient for a follow-up appointment Last date the medication was ordered: 01/09/23 Is this request for a controlled substance?No Urine Drug Screen:No results found for this or any previous visit. Patient Phone Numbers Labs: Lab Results Component Value Date/Time CREAT 1.2 01/27/2023 11:01 AM CREAT 1.32 11/08/2021 12:00 AM CREAT 1.1 06/01/2020 03:18 PM POTASSIUM 4.0 01/27/2023 11:01 AM POTASSIUM 4.3 11/08/2021 12:00 AM POTASSIUM 4.5 06/01/2020 03:18 PM TSH 2.020 11/08/2021 12:00 AM TSH 2.18 11/01/2008 10:02 AM LDLCALC 56 09/01/2022 02:42 PM LDLCALC 85 06/04/2016 01:48 PM LDLDIRECT 53 01/11/2018 11:20 AM ALT 19 09/01/2022 02:42 PM ALT 8 (L) 01/11/2018 11:20 AM HGBA1C 9.2 (H) 01/27/2023 11:01 AM HGBA1C 7.4 (H) 03/13/2020 09:26 AM documented in this encounter Plan of Treatment Upcoming Encounters Date Type Specialty Care Team Description 05/07/2023 Office Visit Dermatology Angelica Vuong MD [address] [place] [address], [place] [address] 05/19/2023 Office Visit Otolaryngology Gurinder Arias, DO [address] [place] [address] 05/27/2023 Office Visit Pharmacy [facility] Erica [address] [place] [address] 06/26/2023 Nutrition Services Nutrition Services Dinah Mohamud, ALFIE [address] [place] [address] 06/26/2023 Office Visit Podiatry Fred Burroughs, REM[place] [address] [place], [place] [address] [address] 07/13/2023 Office Visit Cardiology Del Díaz Jr., DO 09/03/2023 Office Visit Family Medicine James Maria, DO [address] [place] [address] 09/11/2023 Office Visit Dermatology Lily Piedra MD 02/08/2024 Office Visit Family Medicine James Maria, [address] [place] [address] Scheduled Procedures Name Priority Associated Diagnoses Date/Ti [...] as of this encounter Visit Diagnoses Diagnosis Chronic atrial fibrillation (HCC) Atrial fibrillation documented in this encounter Advance Directives Healthcare Agents on File Name Relationship Healthcare Agent Relationshi p Communication Farhana Sebastian Spouse Health Care Agent Care Teams Stitcher Around Relationship Specialty Start Date End Date James Maria DO [address] [place] [address] PCP - General Family Medicine 06/07/18 documented as of this encounter
--- OUTSIDE RECORDS SUMMARY | 2023-07-31 19:42 | External Medical Summary | Summary of Care ---
Author Name Unknown Organization [facility] Address [address] [facility] [place] [address] Phone [phone] Care Team Providers Care Casting Room Operator Name Role Phone Yariel Mariavor Sophy Primary Care Provider Reason for Visit * Reason Comments Nutritional Services Documentation Encounter Details Date Type Department Care Team Description 04/22/2023 Nutrition Services Nutrition, [facility] [address] [place] [address] Dinah Mohamud RDN [address] [place] [address] Allergies Active Allergy Reactions Severity Noted Date Comments Lisinopril Edema face/lips/tongue High 04/05/2018 documented as of this encounter (statuses as of 04/22/2023) Medications Medication Sig Dispensed Refills Start Date [...] 11 12/27/2021 Active FreeStyle Rose Marie 2 [place] Device Test blood sugars four times daily 1 Each 0 12/27/2021 Active Pen [place] 32G X 4 MMIndications:Type 2 diabetes mellitus with hemoglobin A1c goal of less than 8.0% ([facility]) Use as directed . Use to inject [...] than 8.0% ([facility]) INJECT 15 UNITS UNDER THE SKIN BEFORE BEDTIME 15 mL 3 02/09/2023 Active metFORMIN HCl ER 500 MG Oral Tablet Extended Release 24 Hour (Glucophage XR)Indications:Type 2 diabetes mellitus with diabetic neuropathy, with long-term current use of insulin ([facility]) TAKE TWO TABLETS BY MOUTH EVERY MORNING 180 Tablet 3 02/26/2023 Active Silver sulfADIAZINE 1 % External Cream (Silvadene) Apply to wounds on hands 100 g 1 04/01/2023 Active Ciprofloxacin HCl 500 MG Oral Tablet (Cipro) Take 1 Tablet by mouth in the morning and 1 Tablet before bedtime. 14 Tablet 0 04/01/2023 Active documented as of this encounter (statuses as of 04/22/2023) Active Problems Problem Noted Date Hypertensive heart [...] with fat layer exposed 01/09/2022 Atherosclerosis of [place] coronary arter y without angina pectoris 01/09/2022 [...] as of this encounter (statuses as of 04/22/2023) Resolved Problems Problem Noted Date Resolved Date [...] with worsening symptoms. Will plan nurse or [facility] provider telemedicine recheck visit one week to [...] as of this encounter (statuses as of 04/22/2023) Immunizations Name Administration Dates Next Due COVID-19 mRNA, LNP-s, No Pre serve, 2-Dose Series (Moderna) 03/24/2021,02/22/2021 COVID-19, LNP-s, No Preserve , Ministerio-sucrose, Ages 12+ (Pfizer) 02/25/2022 Covid-19, Mrna, Lnp-s, Pf, B ivalent, 30 Mcg, IM, 12 yrs and above ([facility]) 11/17/2022 Pneumococcal Conjugate Vacc, 13 Valent (Prevnar) [...] as of this encounter Progress Notes * Dinah Mohamud RDN - 04/22/2023 2:19 PM EDT I contacted [facility] in regards to 's complaint of the cost of pt's insulin being higher. Spoke withChristine regarding this. Information on pt's cost of insulin is: Novolog flexpen solution pen injector - 90 day supply, this is eligible now for refill, copay will be $77.45 lantus solostar solution pen injector- 100 day supply, next refill is on 05/08/23 - copay will be$60.72 Attempted to contact pt's regarding this. Left message on her voicemail. Also sent her a [employer] message regarding the same. Dinah Mohamud RDN, Clinical Dietitian II, [facility] Clinical Nutrition Services [facility] [address] [place] [address] Available via [employer] Portal documented in this encounter Plan of Treatment Upcoming Encounters Date Type Specialty Care Team Description 05/19/2023 Office Visit Otolaryngology Gurinder Arias, [address] [place] [address] 05/27/2023 Office Visit Pharmacy [facility] Erica [address] [place] [address] 06/26/2023 Nutrition Services Nutrition Services Dinah Mohamud RDN [address] [place] [address] 06/26/2023 Office Visit Podiatry Kylie Burroughs DPM [address] [facility] [place], [place] [address] 07/13/2023 Office Visit Cardiology Del Díaz Jr., DO 09/03/2023 Office Visit Family Medicine James Maria DO [address] [place] [address] 09/11/2023 Office Visit Dermatology Lily Piedra MD 02/08/2024 Office Visit Family Medicine James Maria DO [address] [place] [address] Scheduled Procedures Name Priority Associated Diagnoses Date/Ti [...] Agents on File Name Relationship Healthcare Agent [facility] p Communication Farhana Sebastian Spouse Health Care Agent [phone] (Mobile) Care Teams Casting Room Operator Relationship Specialty Start Date End Date James Maria DO [address] [place] [address] PCP - General Family Medicine 06/07/18 documented as of this encounter
--- OUTSIDE RECORDS SUMMARY | 2023-07-31 19:42 | External Medical Summary | Summary of Care ---
Author Name Unknown Organization [facility] [address] [facility] [address] Phone [phone] Care Team Providers Care Railroad Mechanic Name Role Phone James Maria DO Primary Care Provider Reason for Referral * Evaluate & Treat - Unlimited Visits (Within 3 days (urgent)) - Authorized Specialty Diagnoses / Procedures Referred By Collin leigh Referred To Contact Psychiatry Diagnoses Behavioral change James Maria DO [address] [place] [address] Referral ID Status Reason Start Date Expiration Date Visits Requested Visits Authorized [id number] Authorized Specialty Services Required 04/16/2023 999 999 Question Answer Referral Priority Within 3 days (urgent) Is this referral for medication management? Yes Referral To anita Reason for Referral Other (Comment) Comments Question of cognitive status, is he competent? Living in the [facility] right now, not taking care of himself. Reason for Visit * Reason Onset Date Comments Appointment 04/16/2023 Encounter Details Date Type Department Care Team Description 04/16/2023 Telephone Family Practice [facility] [address] [place] [address] James Maria DO [address] [place] [address] Appointment Allergies Active Allergy Reactions Severity Noted Date Comments Lisinopril Edema face/lips/tongue High 04/05/2018 documented as of this encounter (statuses as of 04/16/2023) Medications Medication Sig Dispensed Refills Start Date [...] 11 12/27/2021 Active FreeStyle Rose Marie [address] [place] Device Test blood sugars four times daily 1 Each 0 12/27/2021 Active Pen [place] 32G X 4 MMIndications:Type 2 diabetes mellitus with hemoglobin A1c goal of less than 8.0% (HCC) Use as directed . Use to inject [...] neuropathy, with long-term current use of insulin ([facility]) TAKE TWO TABLETS BY MOUTH EVERY MORNING 180 Tablet 3 02/26/2023 Active Silver sulfADIAZINE 1 % External Cream (Silvadene) Apply to wounds on hands 100 g 1 04/01/2023 Active Ciprofloxacin HCl 500 MG Oral Tablet (Cipro) Take 1 Tablet by mouth in the morning and 1 Tablet before bedtime. 14 Tablet 0 04/01/2023 Active documented as of this encounter (statuses as of 04/16/2023) Active Problems Problem Noted Date Hypertensive heart disease with chronic diastolic congestive heart failure 01/20/2023 Chronic heart failure with preserved eje ction fraction 01/06/2023 Nonrheumatic aortic valve stenosis 11/21 Cellulitis of toe of left foot Last Assessment & Plan: Wound culture taken [...] with fat layer exposed 01/09/2022 Atherosclerosis of [place] coronary arter y without angina pectoris 01/09/2022 [...] as of this encounter (statuses as of 04/16/2023) Resolved Problems Problem Noted Date Resolved Date [...] as of this encounter (statuses as of 04/16/2023) Immunizations Name Administration Dates Next Due COVID-19 [...] Miscellaneous Notes * Telephone Encounter - MICHEL Liu - 04/16/2023 4:23 PM EDT LMOM for patient to call and schedule intake visit with Iris. MICHEL Liu * Telephone Encounter - Ananya Monk - 04/16/2023 4:19 PM EDT Please assist with scheduling 3 day urgent referral * Telephone Encounter - James Maria DO - 04/16/2023 4:09 PM EDT Schedule appointment please Call for appointment arrangement documented in this encounter Plan of Treatment Upcoming Encounters Date Type Specialty Care Team Description 04/20/2023 Nutrition Services Nutrition Services Dinah Mohamud, ALFIE [address] [place] [address] 05/19/2023 Office Visit Otolaryngology Gurinder Arias DO [address] [place] [address] 05/27/2023 Office Visit Pharmacy [facility] [address] Erica [address] [place] [address] 06/26/2023 Office Visit Podiatry Kylie Burroughs, [address] [place] [address] 07/13/2023 Office Visit Cardiology Del Díaz Jr., DO 09/03/2023 Office Visit Family Medicine James Maria DO [address] [place] [address] 09/11/2023 Office Visit Dermatology Lily Piedra MD 02/08/2024 Office Visit Family Medicine James Maria DO [address] [place] [address] Scheduled Procedures Name Priority Associated Diagnoses Date/Ti me COLONOSCOPY FLEXIBLE PROXIMA L DIAGNOSTIC Recall Encounter for screening colonoscopy Scheduled Referrals Name Type Priority Associated Diagnoses Orde r Schedule ADULT/PEDS PSYCHIATRY REFERRAL OP Referral Within 3 days (urgent) Behavioral change Ordered: 04/16/2023 Health Maintenance Due Date Last Done Comments [...] as of this encounter Visit Diagnoses Diagnosis Behavioral change- Primary Unspecified disturbance of conduct documented in this encounter Advance Directives Healthcare Agents on File Name Relationship Healthcare Agent Relationshi p Communication Farhana Sebastian Spouse Health Care Agent Care Teams Railroad Mechanic Relationship Specialty Start Date End Date James Maria DO [address] [place] [address] PCP - General Family Medicine 06/07/18 documented as of this encounter
--- OUTSIDE RECORDS SUMMARY | 2023-07-31 19:42 | External Medical Summary | Summary of Care ---
Author Name Unknown Organization [facility] Address [address] [facility] [place] [address] Phone [phone] Care Team Providers Care Surgical Sales Representative Name Role Phone Yariel Mariavor Sophy Primary Care Provider Reason for Visit * Reason Comments Nutritional Services Documentation Encounter Details Date Type Department Care Team Description 05/01/2023 Nutrition Services Nutrition, [facility] [address] [place] [address] Dinah Mohamud RDN [address] [place] [address] Allergies Active Allergy Reactions Severity Noted Date Comments Lisinopril Edema face/lips/tongue High 04/05/2018 documented as of this encounter (statuses as of 05/01/2023) Medications Medication Sig Dispensed Refills Start Date [...] hemoglobin A1c goal of less than 8.0% ([facility]) Use up to 4 x a day for insulin dosing E11.9 3 Each 1 09/05/2021 Active FreeStyle Rose Marie 2 Sensor Test blood sugars four times daily 2 Each 11 12/27/2021 Active FreeStyle Rose Marie 2 [place] Device Test blood sugars four times daily 1 Each 0 12/27/2021 Active Pen [place] 32G X 4 MMIndications:Type 2 diabetes mellitus with hemoglobin A1c goal of less than 8.0% ([facility]) Use as directed . Use [...] EVERY MORNING 100 Capsule 2 01/01/2023 Active NovoLOG FlexPen 100 UNIT/ML Subcutaneous Solution [...] hemoglobin A1c goal of less than 8.0% ([facility]) INJECT 15 UNITS UNDER THE SKIN BEFORE BEDTIME 15 mL 3 02/09/2023 Active metFORMIN HCl ER 500 MG Oral Tablet Extended Release 24 Hour (Glucophage XR)Indications:Type 2 diabetes mellitus with diabetic neuropathy, with long-term current use of insulin ([facility]) TAKE TWO TABLETS BY MOUTH EVERY MORNING 180 Tablet 3 02/26/2023 Active Silver sulfADIAZINE 1 % External Cream (Silvadene) Apply to wounds on hands 100 g 1 04/01/2023 Active Ciprofloxacin HCl 500 MG Oral Tablet (Cipro) Take 1 Tablet by mouth in the morning and 1 Tablet before bedtime. 14 Tablet 0 04/01/2023 Active Metoprolol Tartrate 25 MG Oral Tablet (Lopressor)Indications :Chronic atrial fibrillation ([facility]) TAKE ONE TABLET BY MOUTH TWICE A DAY -- IN THE MORNING AND BEFORE BEDTIME 180 Tablet 1 04/29/2023 Active documented as of this encounter (statuses as of 05/01/2023) Active Problems Problem Noted Date Hypertensive heart [...] with fat layer exposed 01/09/2022 Atherosclerosis of [place] coronary arter y without angina pectoris 01/09/2022 [...] as of this encounter (statuses as of 05/01/2023) Resolved Problems Problem Noted Date Resolved Date [...] with worsening symptoms. Will plan nurse or [facility] provider telemedicine recheck visit one week to [...] as of this encounter (statuses as of 05/01/2023) Immunizations Name Administration Dates Next Due COVID-19 mRNA, LNP-s, No Pre serve, 2-Dose Series (Moderna) 03/24/2021,02/22/2021 COVID-19, LNP-s, No Preserve , Ministerio-sucrose, Ages 12+ (Pfizer) 02/25/2022 Covid-19, Mrna, Lnp-s, Pf, B ivalent, 30 Mcg, IM, 12 yrs and above ([employer]) 11/17/2022 Pneumococcal Conjugate Vacc, 13 Valent (Prevnar) [...] = 0.6 oz pure alcohol) As of 2, the last noted alcohol intake was 1 [...] Progress Notes * Dinah Mohamud RDN - 05/01/2023 3:51 PM EDT Attempted to contact pt for follow-up after April 20 appointment. Spoke with pt's . She stateshe is currently in the hospital, [facility]. Patient's glucose level was 412 last Thursday but pt refused to go to the ER. Per pt eating poorly 2 days prior to admission, and had an episode of vomiting.He agreed to go to the local ER on Thursday. has no questions or concerns for me regarding diabetes or nutrition at this time. Dinah Mohamud RDN, Clinical Dietitian II, [facility] Clinical Nutrition Services [facility] [address] [place] [address] Available via [employer] Portal documented in this encounter Plan of Treatment Upcoming Encounters Date Type Specialty Care Team Description 05/07/2023 Office Visit Dermatology Angelica Vuong MD [address] [facility] [place] [address] 05/19/2023 Office Visit Otolaryngology Gurinder Arias, DO [address] [place] [address] 05/27/2023 Office Visit Pharmacy [facility] Erica [address] [place] [address] 06/26/2023 Nutrition Services Nutrition Services Dinah Mohamud, ALFIE [address] [place] [address] 06/26/2023 Office Visit Podiatry Kylie Burroughs [address] [address] 07/13/2023 Office Visit Cardiology Del Díaz Jr., DO 09/03/2023 Office Visit Family Medicine James Maria DO [address] [place] [address] 09/11/2023 Office Visit Dermatology Lily Piedra MD 02/08/2024 Office Visit Family Medicine James Maria DO [address] [place] [address] Scheduled Procedures Name Priority Associated Diagnoses Date/Ti [...] Sebastian Spouse Health Care Agent Care Teams Surgical Sales Representative Relationship Specialty Start Date End Date James Maria DO [address] [place] [address] PCP - General Family Medicine 06/07/18 documented as of this encounter
--- OUTSIDE RECORDS SUMMARY | 2023-07-31 19:42 | External Medical Summary | Summary of Care ---
Author Name Unknown Organization [facility] Address [address] [facility] [address] Phone [phone] Care Team Providers Care Executive Legal Secretary Name Role Phone James Maria Primary Care Provider Reason for Visit * Reason Onset Date Comments Test Results Biopsy 04/07/2023 Encounter Details Date Type Department Care Team Description 04/07/2023 Telephone Dermatology [facility] [place] [address] [facility] [place] [address] Lily Piedra MD [address] [facility] [place] [address] Test Results Biopsy Allergies Active Allergy Reactions Severity Noted Date Comments Lisinopril Edema face/lips/tongue High 04/05/2018 documented as of this encounter (statuses as of 04/08/2023) Medications Medication Sig Dispensed Refills Start Date [...] 11 12/27/2021 Active FreeStyle Rose Marie 2 [place] Device Test blood sugars four times daily 1 Each 0 12/27/2021 Active Pen [place] 32G X 4 MMIndications:Type 2 diabetes mellitus with hemoglobin A1c goal of less than 8.0% ([facility]) Use as directed . [...] hemoglobin A1c goal of less than 8.0% ([facility]) INJECT 15 UNITS UNDER THE SKIN BEFORE BEDTIME 15 mL 3 02/09/2023 Active metFORMIN HCl ER 500 MG Oral Tablet Extended Release 24 Hour (Glucophage XR)Indications:Type 2 diabetes mellitus with diabetic neuropathy, with long-term current use of insulin ([facility]) TAKE TWO TABLETS BY [...] as of this encounter (statuses as of 04/08/2023) Active Problems Problem Noted Date Hypertensive heart [...] with fat layer exposed 01/09/2022 Atherosclerosis of [place] coronary arter y without angina pectoris 01/09/2022 [...] as of this encounter (statuses as of 04/08/2023) Resolved Problems Problem Noted Date Resolved Date [...] as of this encounter (statuses as of 04/08/2023) Immunizations Name Administration Dates Next Due COVID-19 mRNA, LNP-s, No Pre serve, 2-Dose Series (Moderna) 03/24/2021,02/22/2021 COVID-19, LNP-s, No Preserve , Ministerio-sucrose, Ages 12+ (Pfizer) 02/25/2022 Covid-19, Mrna, Lnp-s, Pf, B ivalent, 30 Mcg, IM, 12 yrs and above ([employer]) 11/17/2022 Pneumococcal Conjugate Vacc, 13 Valent (Prevnar) [...] Influenza, Trivalen t, Adjuvanted, 65+ yrs 08/22/2019 TD - Tetanus/Diptheria (ADULT) 11/09/2003 TDAP (age 10 and older)(Boostrix) 02/03/2023 TDAP [...] Miscellaneous Notes * Telephone Encounter - MICHEL Cooney - 04/08/2023 2:49 PM EDT Added patient to recall list for 1 month f/u with a MD. * Telephone Encounter - Katherine Ugarte LPN - 04/08/2023 2:[address] per Dr. Piedra, patient will need appointment in 1 month * Telephone Encounter - Katherine Ugarte LPN - 04/07/2023 8:51 AM EDT Left voice message on patient's (Farhana) cell phone to return call to office. * Telephone Encounter - Kathreine Ugarte LPN - 04/07/2023 7:25 AM EDT ----- Message from Lily Piedra MD sent at 04/06/2023 5:23 PM EDT ----- Please let pt know that biopsies continue to show changes suggestive of blistering from underlying diabetes. No other specific changes identified. Wound care should be helping with hand wounds. Pt needs follow up in next 1 mo - thank you documented in this encounter Plan of Treatment Upcoming Encounters Date Type Specialty Care Team Description 04/20/2023 Nutrition Services Nutrition Services Dinah Mohamud, FELIPEN [address] [place] [address] 05/19/2023 Office Visit Otolaryngology Gurinder Arias, DO [address] [place] [address] 05/27/2023 Office Visit Pharmacy [facility] Erica [address] [place] [address] 06/26/2023 Office Visit Podiatry Kylie Burroughs, [address] [address] 07/13/2023 Office Visit Cardiology Del Díaz Jr., DO 09/03/2023 Office Visit Family Medicine James Maria, DO [address] [place] [address] 09/11/2023 Office Visit Dermatology Lily Piedra MD [address] [place] [address], [place] [address] 02/08/2024 Office Visit Family Medicine James Maria DO [address] [place] [address] Scheduled Procedures Name Priority Associated Diagnoses Date/Ti [...] 01/28/2024 023, 06/05/2022, 03/13/2020, Additional history exists GFR 01/28/2024 01/27/2023, 11/02, 11/14/2022, Additional history exists Depression Screening, Annual for Pts 12 and Over 02/19/2024 02/18/2023 DTaP,Tdap,and Td Vaccines (3 - Td or [...] Sebastian Spouse Health Care Agent Care Teams Executive Legal Secretary Relationship Specialty Start Date End Date James Maria DO [address] [place] [address] PCP - General Family Medicine 06/07/18 documented as of this encounter
--- OUTSIDE RECORDS SUMMARY | 2023-07-31 19:42 | External Medical Summary | Summary of Care ---
Author Name Unknown Organization [facility] Address [address] [facility] [place] [address] Phone [phone] Care Team Providers Care Full Decator Operator Name Role Phone Yariel Mariavor Sophy DO Primary Care Provider Reason for Visit * Reason Comments eRx-Medication Refill Encounter Details Date Type Department Care Team Description 04/27/2023 Refill Family Practice [facility] [address] [place] [address] Kenney Walton DO [address] [place] [address] Chronic atrial fibrillation (HCC) Allergies Active Allergy Reactions Severity Noted Date Comments Lisinopril Edema face/lips/tongue High 04/05/2018 documented as of this encounter (statuses as of 04/29/2023) Medications Medication Sig Dispensed Refills Start Date [...] 11 2 Active FreeStyle Rose Marie 2 [place] Device Test blood sugars four times daily 1 Each 0 2 Active Pen [place] 32G X 4 MMIndications:Type 2 diabetes mellitus with hemoglobin A1c goal of less than 8.0% ([facility]) Use as directed . Use to inject [...] hemoglobin A1c goal of less than 8.0% ([facility]) INJECT 15 UNITS UNDER THE SKIN BEFORE [...] as of this encounter (statuses as of 04/29/2023) Active Problems Problem Noted Date Hypertensive heart [...] with fat layer exposed 01/09/2022 Atherosclerosis of [place] coronary arter y without angina pectoris 01/09/2022 [...] as of this encounter (statuses as of 04/29/2023) Resolved Problems Problem Noted Date Resolved Date [...] as of this encounter (statuses as of 04/29/2023) Immunizations Name Administration Dates Next Due COVID-19 [...] encounter Miscellaneous Notes * Telephone Encounter - Fred Dupont RPh - 04/29/2023 1:09 PM EDTSigned Prescriptions: Disp Refills Metoprolol Tartrate 25 MG Oral Tablet (Lop*180 Ta*1 Sig: TAKE ONE TABLET BY MOUTH TWICE A DAY -- IN THE MORNING AND BEFORE BEDTIME Authorizing Provider: KENNEY WALTON Ordering User: FRED DUPONT * Telephone Encounter - Jonna Deshpande CPhT - 04/29/2023 1:01 PM EDT Did you pend patient's preferred pharmacy and medication before forwarding?yes Pharmacy: [facility] Pending Prescriptions: Disp Refills Metoprolol Tartrate [...] or any previous visit. Patient Phone Numbers StudyRoom [phone] Labs: Lab Results Component Value Date/Time CREAT [...] Office Visit Dermatology Angelica Vuong MD [address] [facility] [address] 05/19/2023 Office Visit Otolaryngology Gurinder Arias, DO [address] [place] [address] 05/27/2023 Office Visit Pharmacy [facility] Erica [address] [place], [place] [address] 06/26/2023 Nutrition Services Nutrition Services Dinah Mohamud, ALFIE [address] [place] [address] 06/26/2023 Office Visit Podiatry Fred Burroughs [address] [address] 07/13/2023 Office Visit Cardiology Del Díaz Jr., DO 09/03/2023 Office Visit Family Medicine James Maria DO [address] [place] [address] 09/11/2023 Office Visit Dermatology Lily Piedra MD 02/08/2024 Office Visit Family Medicine James Maria DO [address] [place] [address] Scheduled Procedures Name Priority Associated Diagnoses Date/Ti [...] Agents on File Name Relationship Healthcare Agent Relationsca p Communication Farhana Sebastian Spouse Health Care Agent Care Teams Full Decator Operator Relationship Specialty Start Date End Date James Maria DO [address] [place] [address] PCP - General Family Medicine 06/07/18 documented as of this encounter
--- OUTSIDE RECORDS SUMMARY | 2023-07-31 19:42 | External Medical Summary | Summary of Care ---
Author Name Unknown Organization [facility] [address] [facility] [address] Phone [phone] Care Team Providers Care Machinist Bench Name Role Phone MariaJamesfiliberto Primary Care Provider Encounter Details Date Type Department Care Team Description 05/08/2023 Tow Truck OperatorKitchen Mechanic [facility] [address] [place] [address] Shani Garcia, RN Medical home patient encounter* Allergies Active Allergy Reactions Severity Noted Date Comments Lisinopril Edema face/lips/tongue High 04/05/2018 documented as of this encounter (statuses as of 05/08/2023) Medications Medication Sig Dispensed Refills Start Date [...] 0.3 MLIndications:Type 2 diabetes mellitus with polyneuropathy ([facility]),Type 2 diabetes mellitus with hemoglobin A1c goal of less than 8.0% ([facility]) Use up to 4 x a day for insulin dosing E11.9 3 Each 1 09/05/2021 Active FreeStyle Rose Marie 2 Sensor Test blood sugars four times daily 2 Each 11 12/27/2021 Active FreeStyle Rose Marie 2 [place] Device Test blood sugars four times daily 1 Each 0 12/27/2021 Active Insulin Aspart 100 UNIT/ML Injection Solution 5 Units. Pt takes 5 to 6 units before meals 0 05/16/2022 Active Furosemide 40 MG Oral Tablet (Lasix) Take 2 tablets in the morning, 1 tablet in the afternoon 270 Tablet 3 11/17/2022 Active Eliquis 5 MG Oral TabletIndications:tip b [...] 01/15/2023 Active Gentamicin Sulfate 0.1 % External OintmentIndications:S [...] A1c goal of less than 8.0% ([facility]) INJECT 15 UNITS UNDER THE SKIN BEFORE BEDTIME 15 mL 3 02/09/2023 Active metFORMIN HCl ER 500 MG Oral Tablet Extended Release 24 Hour (Glucophage XR)Indications:Type 2 diabetes mellitus with diabetic neuropathy, with long-term current use of insulin ([facility]) TAKE TWO TABLETS BY MOUTH EVERY MORNING 180 Tablet 3 02/26/2023 Active Silver sulfADIAZINE 1 % External Cream (Silvadene) Apply to wounds on hands 100 g 1 04/01/2023 Active Ciprofloxacin HCl 500 MG Oral Tablet (Cipro) Take 1 Tablet by mouth in the morning and 1 Tablet before bedtime. 14 Tablet 0 04/01/2023 Active Additional Information Patient not taking.Reported on 05/07/2023 Metoprolol Tartrate 25 MG Oral Tablet (Lopressor)Indication s:Chronic atrial fibrillation (HCC) TAKE ONE TABLET BY MOUTH TWICE A DAY -- IN THE MORNING AND BEFORE BEDTIME 180 Tablet 1 04/29/2023 Active [place] 32G X 4 MMIndications:Type 2 diabetes mellitus with hemoglobin A1c goal of less than 8.0% (HCC) Use as directed. Use to inject insulin up to 4 times daily. 400 Each 3 05/06/2023 Active [place] 32G X 4 MM Use as directed. Use to inject insulin up to 4 times daily. 30 Each 0 05/06/2023 Active Doxycycline Hyclate 100 MG Oral Tablet Take 1 Tablet by mouth in the morning and 1 Tablet before bedtime. 0 05/05/2023 Active documented as of this encounter (statuses as of 05/08/2023) Active Problems Problem Noted Date Medical home [...] with fat layer exposed 01/09/2022 Atherosclerosis of [place] coronary arter y without angina pectoris 01/09/2022 [...] as of this encounter (statuses as of 05/08/2023) Resolved Problems Problem Noted Date Resolved Date [...] with worsening symptoms. Will plan nurse or [facility] provider telemedicine recheck visit one week [...] DM type 2, not at goal 04/05/2009 10 9 Overview: Modified per Diabetes protocol #14. [...] as of this encounter (statuses as of 05/08/2023) Immunizations Name Administration Dates Next Due COVID-19 [...] as of this encounter Progress Notes * Shani Garcia RN - 05/08/2023 1:14 PM EDT CM coverage for primary CM: 1. Follow-up Post Discharge 2. Attempted Phone Call Second Attempt 3. Call Outcome Left Voicemail/Message 4. Plan To attempt another outreach documented in this encounter Plan of Treatment Upcoming Encounters Date Type Specialty Care Team Description 05/11/2023 Office Visit Family Medicine Angela Rudd DO [address] [place] [address] 05/19/2023 Office Visit Otolaryngology Gurinder Arias DO [address] [place] [address] 05/27/2023 Office Visit Pharmacy [facility] Erica [address] [place] [address] 06/26/2023 Nutrition Services Nutrition Services Dinah Mohamud, FELIPEN [address] [place] [address] 06/26/2023 Office Visit Podiatry Kylie Burroughs, DPNan [address] [place] [address] [place] [address] 07/13/2023 Office Visit Cardiology Del Díaz Jr., DO 09/03/2023 Office Visit Family Medicine James Maria, [address] [place] [address] 09/11/2023 Office Visit Dermatology Lily Piedra MD 02/08/2024 Office Visit Family Medicine James Maria, [address] [place] [address] Scheduled Procedures Name Priority Associated Diagnoses Date/Ti me COLONOSCOPY FLEXIBLE PROXIMA L DIAGNOSTIC Recall Encounter for screening colonoscopy Health Maintenance Due Date Last Done Comments Influenza Vaccine (FLU shot) (#1) 2023 08/05/2022, 08/10/2021, 08/10/2021, Additional history exists HbA1c 07/30/2023 01/27/2023, 08/04, 05/21/2022, Additional history exists B-12 09/01/2023 DIABETES-EYE EXAM 09/01/2023 09/01/2022, , 12/15/2019, Additional [...] Name Relationship Healthcare Agent [facility] p Communication Farhana Sebastian Spouse Health Care Agent [phone] (Mobile) Care Teams Machinist Bench Relationship Specialty Start Date End Date James Maria DO [address] [place] [address] PCP - General Family Medicine 06/07/18 documented as of this encounter
--- OUTSIDE RECORDS SUMMARY | 2023-07-31 19:42 | External Medical Summary | Summary of Care ---
Author Name Unknown Organization [facility] Address [address] [facility] [place] [address] Phone [phone] Care Team Providers Care Mail Caller Name Role Phone Rylan Mariar Sophy Primary Care Provider Reason for Visit * Reason Comments case management Encounter Details Date Type Department Care Team Description 05/07/2023 Radiation Oncology TherapistFinish Mender [address] [place] [address] Marga Leong, RN Medical home patient encounter* Allergies Active Allergy Reactions Severity Noted Date Comments Lisinopril Edema face/lips/tongue High 04/05/2018 documented as of this encounter (statuses as of 05/07/2023) Medications Medication Sig Dispensed Refills Start Date [...] 11 12/27/2021 Active FreeStyle Rose Marie 2 [place] Device Test blood sugars four times daily [...] Oral Tablet (Lopressor)Indications :Chronic atrial fibrillation (HCC) TAKE ONE TABLET BY MOUTH TWICE A DAY -- IN THE MORNING AND BEFORE BEDTIME 180 Tablet 1 04/29/2023 Active Pen [place] 32G X 4 MMIndications:Type 2 diabetes mellitus with hemoglobin A1c goal of less than 8.0% (HCC) Use as directed. Use to inject insulin up to 4 times daily. 400 Each 3 05/06/2023 Active Pen [place] 32G X 4 MM Use as directed. Use to inject insulin up to 4 times daily. 30 Each 0 05/06/2023 Active documented as of this encounter (statuses as of 05/07/2023) Active Problems Problem Noted Date Medical home [...] with fat layer exposed 01/09/2022 Atherosclerosis of [place] coronary arter y without angina pectoris 01/09/2022 [...] as of this encounter (statuses as of 05/07/2023) Resolved Problems Problem Noted Date Resolved Date [...] with worsening symptoms. Will plan nurse or [facility] provider telemedicine recheck visit one week [...] as of this encounter (statuses as of 05/07/2023) Immunizations Name Administration Dates Next Due COVID-19 [...] Progress Notes * Marga Leong RN - 05/07/2023 9:58 AM EDT 1. Follow-up Post Discharge 2. Attempted Phone Call First Attempt 3. Call Outcome Left Voicemail/Message 4. Plan To attempt another outreach Patient was declined for [facility] enrollment. Message received via tiger text. documented in this encounter Plan of Treatment Upcoming Encounters Date Type Specialty Care Team Description 05/07/2023 [facility] [address] [facility] [address] 05/11/2023 Office Visit Family Medicine Angela Rudd DO [address] [place] [address] 05/19/2023 Office Visit Otolaryngology Gurinder Arias, DO [address] [place] [address] 05/27/2023 Office Visit Pharmacy [facility] Erica [address] [place] [address] 06/26/2023 Nutrition Services Nutrition Services Dinah Mohamud, FELIPEN [address] [place] [address] 06/26/2023 Office Visit Podiatry Kylie Burroughs DPM [address] [place] [address] [place] [address] 07/13/2023 Office Visit Cardiology Del Díaz Jr., DO 09/03/2023 Office Visit Family Medicine James Maria DO [address] [place] [address] 09/11/2023 Office Visit Dermatology Lily Piedra MD 02/08/2024 Office Visit Family Medicine James Maria, [address] [place] [address] Scheduled Procedures Name Priority Associated Diagnoses Date/Ti [...] Agents on File Name Relationship Healthcare Agent [facility] Communication Farhana Sebastian Spouse Health Care Agent Care Teams Mail Caller Relationship Specialty Start Date End Date Jaems Maria DO [address] [place] [address] PCP - General Family Medicine 06/07/18 documented as of this encounter
--- OUTSIDE RECORDS SUMMARY | 2023-07-31 19:42 | External Medical Summary | Summary of Care ---
Author Name Unknown Organization [facility] Address [address] [facility] [place] [address] Phone [phone] Care Team Providers Care Braille Typist Name Role Phone Mejia Maria DO Primary Care Provider Reason for Visit * Reason Onset Date Comments Medication Refill 05/06/2023 Encounter Details Date Type Department Care Team Description 05/06/2023 Refill Family Practice [facility] [address] [place] [address] Mejia Maria DO [address] [place] [address] Type 2 diabetes mellitus with hemoglobin A1c goal of less than 8.0% ([facility]) Allergies Active Allergy Reactions Severity Noted Date Comments Lisinopril Edema face/lips/tongue High 04/05/2018 documented as of this encounter (statuses as of 05/06/2023) Medications Medication Sig Dispensed Refills Start Date [...] 07/05/2021 Active Insulin Syringe-Needle U-100 30G X /16" 0.3 MLIndications:Type 2 diabetes mellitus with polyneuropathy (HCC),Type 2 diabetes mellitus with hemoglobin A1c goal of less than 8.0% ([facility]) Use up to 4 x a day for insulin dosing E11.9 3 Each 1 09/05/2021 Active FreeStyle Rose Marie 2 Sensor Test blood sugars four times daily 2 Each 11 12/27/2021 Active FreeStyle Rose Marie 2 [place] Device Test blood sugars four times daily [...] A1c goal of less than 8.0% ([facility]) INJECT 15 UNITS UNDER [...] BEDTIME 180 Tablet 1 04/29/2023 Active [place] 32G X 4 MMIndications:Type 2 diabetes mellitus with hemoglobin A1c goal of less than 8.0% ([facility]) Use as directed. Use to inject insulin up to 4 times daily. 400 Each 3 05/06/2023 Active [place] 32G X 4 MM Use as directed. Use to inject insulin up to 4 times daily. 30 Each 0 05/06/2023 Active [place] 32G X 4 MMIndications:Type 2 diabetes mellitus with hemoglobin A1c goal of less than 8.0% ([facility]) Use as directed . Use to inject insulin up to 4 times daily. 400 Each 3 01/06/2022 05/06/20 23 Discontinu ed(Refill) documented as of this encounter (statuses as of 05/06/2023) Active Problems Problem Noted Date Hypertensive heart [...] with fat layer exposed 01/09/2022 Atherosclerosis of [place] coronary arter y without angina pectoris 01/09/2022 [...] as of this encounter (statuses as of 05/06/2023) Resolved Problems Problem Noted Date Resolved Date [...] as of this encounter (statuses as of 05/06/2023) Immunizations Name Administration Dates Next Due COVID-19 mRNA, LNP-s, No Pre serve, 2-Dose Series (Moderna) 03/24/2021,02/22/2021 COVID-19, LNP-s, No Preserve , Ministerio-sucrose, Ages 12+ (Pfizer) 02/25/2022 Covid-19, Mrna, Lnp-s, Pf, B ivalent, 30 Mcg, IM, 12 yrs and above (SelectMinds) 11/17/2022 Pneumococcal Conjugate Vacc, 13 Valent (Prevnar) [...] encounter Miscellaneous Notes * Telephone Encounter - Mejia Maria DO - 05/06/2023 11:10 AM EDT Signed Prescriptions: Disp Refills [place] 32G X 4 MM 400 Ea*3 Sig: Use as directed. Use to inject insulin up to 4 times daily. Authorizing Provider: MEJIA AMRIA [place] 32G X 4 MM 30 Each0 Sig: Use as directed. Use to inject insulin up to 4 times daily. Authorizing Provider: MEJIA MARIA * Telephone Encounter - Sara Marga Woods LPN - 05/06/2023 10:26 AM EDT Provider to address: Dr Maria Reason for Call: Medication Refill Contact: Telephone Call Contact Type: Medication Outcome: calling, pt is out of pen needles, would like short term supply sent to [facility] and RX sent to mail order. Orders pending Pending Prescriptions: Disp Refills [place] 32G X 4 MM 400 Ea*3 Sig: Use as directed. Use to inject insulin up to 4 times daily. [place] 32G X 4 MM 30 Each0 Sig: Use as directed. Use to inject insulin up to 4 times daily. 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, bilateral M21.961, M21.962 Type 2 diabetes mellitus with polyneuropathy ([facility]) E11.42 Tympanic membrane perforation, 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, 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, with fat layer exposed ([facility]) E11.621, L97.512 Atherosclerosis of [place] co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 angina pectoris I25.10 Hoarding behavior F42.3 Paroxysmal atrial fibrillation ([facility]) I48.0 Moderate aortic stenosis I35.0 Overweight (BMI 25.0-29.9) E66.3 Unsteady gait when walking R26.81 Cellulitis of toe of left foot L03.032 Nonrheumatic aortic valve stenosis I35.0 Chronic heart failure with preserved ejection fraction (HCC) I50.32 Hypertensive heart disease with chronic diastolic congestive heart failure (HCC) I11.0, I50.32 Labs: Lab Results Component Value Date/Time CREATININE - [facility] 1.2 01/27/2023 11:01 AM CREATININE - [facility] 1.1 06/01/2020 03:18 PM CREATININE, RANDOM URINE - [facility] 33 01/27/2023 11:20 AM CREATININE, RANDOM URINE - [facility] 113 03/13/2020 01:44 PM CREATININE-OUTSIDE LAB 1.32 11/08/2021 12:00 AM Lab Results Component Value Date/Time POTASSIUM - [facility] 4.0 01/27/2023 11:01 AM POTASSIUM - [facility] 4.5 06/01/2020 03:18 PM POTASSIUM-OUTSIDE LAB 4.3 11/08/2021 12:00 AM Lab Results Component Value Date/Time TSH - [facility] 2.18 11/01/2008 10:02 AM TSH - OUTSIDE LAB 2.020 11/08/2021 12:00 AM Lab Results Component Value Date/Time LDL CHOLESTEROL (CALCULATED) - [facility] 56 09/01/2022 02:42 PM LDL CHOLESTEROL (CALCULATED) - [facility] 70 02/27/2021 11:24 AM LDL CHOLESTEROL (CALCULATED) - [facility] 85 06/04/2016 01:48 PM LDL CHOLESTEROL (CALCULATED) - [facility] 110 02/13/2015 09:41 AM LDL CHOLESTEROL (DIRECT MEASURE) - [facility] 53 01/11/2018 11:20 AM LDL CHOLESTEROL (DIRECT MEASURE) - [facility] 54 09/10/2017 11:28 AM Lab Results Component Value Date/Time ALT - [facility] 19 09/01/2022 02:42 PM ALT - [facility] 8 (L) 01/11/2018 11:20 AM Hemoglobin AIC Results: Lab Results Component Value Date/Time HEMOGLOBIN A1C - [facility] 9.2 (H) 01/27/2023 11:01 AM HEMOGLOBIN A1C - [facility] 9.0 (H) 09/01/2022 02:42 PM HEMOGLOBIN A1C - [facility] 7.8 (H) 05/21/2022 04:49 PM HEMOGLOBIN A1C - [facility] 7.4 (H) 03/13/2020 09:26 AM HEMOGLOBIN A1C - [facility] 11.5 (H) 11/16/2019 08:37 AM HEMOGLOBIN A1C - [facility] 14.3 (H) 12/13/2018 03:03 PM Total Time including non face to face (minutes): 5 documented in this encounter Plan of Treatment Upcoming Encounters Date Type Specialty Care Team Description 05/07/2023 Office Visit Dermatology Angelica Vuong MD [address] [place] [address], [place] [address] 05/11/2023 Office Visit Family Medicine Angela Rudd, DO [address] [place] [address] 05/19/2023 Office Visit Otolaryngology Gurinder Arias, DO [address] [place] [address] 05/27/2023 Office Visit Pharmacy [facility] Erica [address] [place] [address] 06/26/2023 Nutrition Services Nutrition Services Dinah Mohamud, FELIPEN [address] [place] [address] 06/26/2023 Office Visit Podiatry Kylie Burroughs, REMEDIOS [address] [place], [place] [address] [id number] 07/13/2023 Office Visit Cardiology Del Díaz Jr., DO 09/03/2023 Office Visit Family Medicine Mejia Maria, DO [address] [place] [address] 09/11/2023 Office Visit Dermatology Lily Piedra MD 02/08/2024 Office Visit Family Medicine Mejia Maria, [address] [place] [address] Scheduled Procedures Name Priority Associated Diagnoses Date/Ti [...] A1c goal of less than 8.0% ([facility]) documented in this encounter Advance Directives Healthcare Agents on File Name Relationship Healthcare Agent [facility] p Communication Farhana Sebastian Spouse Health Care Agent Care Teams Braille Typist Relationship Specialty Start Date End Date Mejia Maria DO [address] [place] [address] PCP - General Family Medicine 06/07/18 documented as of this encounter
--- OUTSIDE RECORDS SUMMARY | 2023-07-31 19:42 | External Medical Summary | Summary of Care ---
Author Name Unknown Organization [facility] Address [address] [facility] [place] [address] Phone [phone] Care Team Providers Care Internship Coordinator Name Role Phone James Maria Primary Care Provider Reason for Visit * Reason Comments Follow Up Here for 1 mo f/u bl isters on fingers. Just got out hospital on Thursday had UTI. No strength in hands per patient. Encounter Details Date Type Department Care Team Description 05/07/2023 Office Visit Dermatology [facility] [address] [facility] [place] [address] Angelica Vuong MD 200 [place] [address] Dermatosis* Allergies Active Allergy Reactions Severity Noted Date Comments Lisinopril Edema face/lips/tongue High 04/05/2018 documented as of this encounter (statuses as of 05/10/2023) Medications Medication Sig Dispensed Refills Start Date End Date Status ONETOUCH ULTRA BLUE STRP USE TO CHECK GLUCOSE 4 TIMES DAILY 100 Strip 0 11/13/19 17 Active ONETOUCH DELICA LANCETS 33G MISC USE ONE TO CHECK GLUCOSE 4 TIMES DAILY 100 Each 0 11/13/19 17 Active Sildenafil Citrate (VIAGRA) 50 MG TabletIndications:Im [...] 21 Active Insulin Syringe-Needle U-100 30G X /16" [...] 12/27/19 22 Active FreeStyle Rose Marie 2 [place] Device Test blood sugars four times daily 1 Each 0 12/27/19 22 Active Insulin Aspart 100 UNIT/ML Injection Solution 5 Units. Pt takes 5 to 6 units before meals 0 05/16/20 22 Active Gentamicin Sulfate 0.1 % External OintmentIndications: Secondary impetiginization Apply to wounds on hands twice daily 15 g 1 01/29/20 23 Active Cephalexin 500 MG Oral Capsule (Keflex) Take 1 Capsule by mouth in the morning and 1 Capsule at noon and 1 Capsule before bedtime. 0 11/24/19 23 Active Silver sulfADIAZINE 1 % External Cream (Silvadene) Apply to wounds on hands 100 g 1 04/01/20 23 Active Ciprofloxacin HCl 500 MG Oral Tablet (Cipro) Take 1 Tablet by mouth in the morning and 1 Tablet before bedtime. 14 Tablet 0 04/01/20 Active Additional Information Patient not taking.Reported on 05/07/2023 [place] 32G X 4 MMIndications:Type 2 diabetes mellitus with hemoglobin A1c goal of less than 8.0% ([facility]) Use as directed. Use to inject insulin up to 4 times daily. 400 Each 3 05/06/20 23 Active Pen [place] 32G X 4 MM Use as directed. Use to inject insulin up to 4 times daily. 30 Each 0 05/06/20 23 Active Doxycycline Hyclate 100 MG Oral Tablet Take 1 Tablet by mouth in the morning and 1 Tablet before bedtime. 0 05/05/20 23 Active Furosemide 40 MG Oral Tablet (Lasix) Take 2 tablets in the morning, 1 tablet in the afternoon 270 Tablet 3 11/17/19 23 01/16/2 023 Discontinued([place] prescription brought in as discontinued) Eliquis 5 MG Oral TabletIndications:af ib Take 1 Tablet by mouth in the morning and 1 Tablet before bedtime. 180 Tablet 3 12/29/19 023 Discontinued([place] prescription brought in as discontinued) Atorvastatin Calcium 40 MG Oral Tablet (Lipitor)Indications :Dyslipidemia TAKE ONE TABLET BY MOUTH EVERY DAY 90 Tablet 1 01/02/20 23 023 Discontinued([place] prescription brought in as discontinued) Tamsulosin HCl 0.4 MG Oral Capsule (Flomax)Indications: BPH with obstruction/lower urinary tract symptoms TAKE ONE CAPSULE BY MOUTH EVERY MORNING 100 Capsule 2 01/02/20 023 Discontinued([place] prescription brought in as discontinued) NovoLOG FlexPen 100 UNIT/ML Subcutaneous Solution Pen-injector (insulin aspart) INJECT UNDER THE SKIN 5 UNITS THREE TIMES A DAY WITH MEALS 15 mL 3 01/16/20 023 Discontinued([place] prescription brought in as discontinued) Lantus SoloStar 100 UNIT/ML Subcutaneous Solution Pen-injector (Insulin Glargine Solostar)Indications :Type 2 diabetes mellitus with hemoglobin A1c goal of less than 8.0% (HCC) INJECT 15 UNITS UNDER THE SKIN BEFORE BEDTIME 15 mL 3 02/10/20 023 Discontinued metFORMIN HCl ER 500 MG Oral Tablet Extended Release 24 Hour (Glucophage XR)Indications:Type 2 diabetes mellitus with diabetic neuropathy, with long-term current use of insulin (HCC) TAKE TWO TABLETS BY MOUTH EVERY MORNING 180 Tablet 3 02/27/20 023 Discontinued([place] prescription brought in as discontinued) Metoprolol Tartrate 25 MG Oral Tablet (Lopressor)Indicatio ns:Chronic atrial fibrillation (HCC) TAKE ONE TABLET BY MOUTH TWICE A DAY -- IN THE MORNING AND BEFORE BEDTIME 180 Tablet 1 04/29/20 23 023 Discontinued([place] prescription brought in as discontinued) documented as of this encounter (statuses as of 05/10/2023) Active Problems Problem Noted Date Medical home patient encounter Hypertensive heart disease with chronic diastolic congestive [...] with fat layer exposed 01/09/2022 Atherosclerosis of [place] coronary arter y without angina pectoris 01/09/2022 [...] as of this encounter (statuses as of 05/10/2023) Resolved Problems Problem Noted Date Resolved Date [...] as of this encounter (statuses as of 05/10/2023) Immunizations Name Administration Dates Next Due COVID-19 [...] as of this encounter Progress Notes * Angelica Vuong MD - 05/07/2023 1:16 PM EDT SUBJECTIVE: History of Present Illness: Selvin Sebastian is a 77 year old male seen today for follow up of ulcers on hands. 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 REVIEW OF SYSTEMS: SKIN: No other new or changing moles. HEME/LYMPH: No new or enlarging lumps or bumps. MEDICA TIONS: Current Outpatient Medications Medication Sig Dispense Refill ONETOUCH ULTRA BLUE STRP USE TO CHECK GLUCOSE 4 TIMES DAILY 100 Strip 0 ONETOUCH DELICA LANCETS 33G MISC USE ONE [...] 2 Each 11 FreeStyle Rose Marie 2 [place] Device Test blood sugars four times daily 1 Each 0 Insulin Aspart 100 UNIT/ML Injection Solution 5 Units. Pt takes 5 to 6 units before meals Furosemide 40 MG Oral Tablet (Lasix) Take 2 tablets in the morning, 1 tablet in the afternoon 270 Tablet 3 Eliquis 5 MG Oral Tablet Take 1 Tablet by mouth in the morning and 1 Tablet before bedtime. 180Tablet 3 Atorvastatin Calcium 40 MG Oral Tablet (Lipitor) TAKE ONE TABLET BY MOUTH EVERY DAY 90 Tablet 1 Tamsulosin HCl 0.4 MG Oral Capsule (Flomax) TAKE ONE CAPSULE BY MOUTH EVERY MORNING 100 Capsule2 NovoLOG FlexPen 100 UNIT/ML Subcutaneous Solution Pen-injector (insulin aspart) INJECT UNDER THE SKIN 5 UNITS THREE TIMES A DAY WITH MEALS 15 mL 3 Gentamicin Sulfate 0.1 % External Ointment Apply to wounds on hands twice daily 15 g 1 Cephalexin 500 MG Oral Capsule (Keflex) Take 1 Capsule by mouth in the morning and 1 Capsule atnoon and 1 Capsule before bedtime. (Patient not taking: Reported on 02/03/2023) Nvbmapc-Ssdslw-Xxrzy Pertussis 5-2.5-18.5 LF-MCG/0.5 Suspension Prefilled Syringe (Boostrix) Administer 0.5ml intramuscularly as directed 0.5 mL 0 Lantus SoloStar 100 UNIT/ML Subcutaneous Solution Pen-injector (Insulin Glargine Solostar) INJECT 15 UNITS UNDER THE SKIN BEFORE BEDTIME 15 mL 3 metFORMIN HCl ER 500 MG Oral Tablet Extended Release 24 Hour (Glucophage XR) TAKE TWO TABLETS BY MOUTH EVERY MORNING 180 Tablet 3 Silver sulfADIAZINE 1 % External Cream (Silvadene) Apply to wounds on hands 100 g 1 Ciprofloxacin HCl 500 MG Oral Tablet (Cipro) Take 1 Tablet by mouth in the morning and 1 Tabletbefore bedtime. (Patient not taking: Reported on 05/07/2023) 14 Tablet 0 Metoprolol Tartrate 25 MG Oral Tablet (Lopressor) TAKE ONE TABLET BY MOUTH TWICE A DAY -- IN THE MORNING AND BEFORE BEDTIME 180 Tablet 1 [place] 32G X 4 MM Use as directed. Use to inject insulin up to 4 times daily. 400 Each 3 [place] 32G X 4 MM Use as directed. Use to inject insulin up to 4 times daily. 30 Each 0 Doxycycline Hyclate 100 MG Oral Tablet Take 1 Tablet by mouth in the morning and 1 Tablet before bedtime. No current facility-administered medications for this visit. ALLERG IES: Lisinopril OBJECTIVE: GEN: poor hearing - Healthy, alert, no distress, appears oriented, pleasant and cooperative. SKIN: Detailed exam of bilateral upper ext. (arm, hand, fingers) completed and are normal except: 1. Hands - a few erosions, healing ASSESS MENT/PLAN: 1. Bullous process, healing Con't silvadene to any eroded areas 1-2x daily, vaseline under occlusion at night otherwise, pt will call if any worsening wounds Follow-up: as needed There were no barriers tolearning and no other pain was related to today's visit. The patient and/or person accompanying patient demonstrates understanding of the visit and treatment. Angelica Vuong MD 05/07/2023 1:17 PM documented in this encounter Nursing Notes * aPm Ferreira LPN - 05/07/2023 1:15 PM EDT Patient identified by name and date of . Do you have any concerns about pain management for today's visit? No Living Will or Advance Directive for Health Care as noted on problem list. [facility] is a way you can talk to your provider online through e-mail. Would you like to sign up? I can activate it for you? ALREADY ACTIVE Chief Complaint Patient presents with Follow Up Here for 1 mo f/u blisters on fingers. Just got out hospital on Thursday had UTI. documented in this encounter Plan of Treatment Upcoming Encounters Date Type Specialty Care Team Description 05/11/2023 Office Visit Family Medicine Angela Rudd, DO [address] [place] [address] 05/19/2023 Office Visit Otolaryngology Gurinder Arias, [address] [place] [address] 05/27/2023 Office Visit Pharmacy [facility] [address] [place] [address] 06/26/2023 Nutrition Services Nutrition Services Dinah Mohamud RDN [address] [place] [address] 06/26/2023 Office Visit Podiatry Kylie Burroughs DPM [address] [place] [address] [place] [address] 07/13/2023 Office Visit Cardiology Del Díaz Jr., DO 09/03/2023 Office Visit Family Medicine James Maria, [address] [place] [address] 09/11/2023 Office Visit Dermatology Lily Piedra MD 02/08/2024 Office Visit Family Medicine James Maria, [address] [place] [address] Scheduled Procedures Name Priority Associated Diagnoses Date/Ti [...] as of this encounter Visit Diagnoses Diagnosis 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
--- OUTSIDE RECORDS SUMMARY | 2023-07-31 19:43 | External Medical Summary | Summary of Care ---
Author Name Unknown Organization [facility] [address] [facility] [address] Phone [phone] Care Team Providers Care Electrolysis Engineer Name Role Phone James Maria Primary Care Provider Reason for Visit * Reason Onset Date Comments Test Results Biopsy 04/07/2023 Encounter Details Date Type Department Care Team Description 04/07/2023 Telephone Dermatology [facility] [place] [address] [facility] [place] [address] Lily Piedra MD [address] [facility] [place] [address] Test Results Biopsy Allergies Active Allergy Reactions Severity Noted Date Comments Lisinopril Edema face/lips/tongue High 04/05/2018 documented as of this encounter (statuses as of 04/07/2023) Medications Medication Sig Dispensed Refills Start Date [...] 11 12/27/2021 Active FreeStyle Rose Marie 2 [place] Device Test blood sugars four times daily 1 Each 0 12/27/2021 Active Pen [place] 32G X 4 MMIndications:Type 2 diabetes mellitus with hemoglobin A1c goal of less than 8.0% ([facility]) Use as directed . Use [...] goal of less than 8.0% ([facility]) INJECT 15 UNITS UNDER THE SKIN BEFORE BEDTIME 15 mL 3 02/09/2023 Active metFORMIN HCl ER 500 MG Oral Tablet Extended Release 24 Hour (Glucophage XR)Indications:Type 2 diabetes mellitus with diabetic neuropathy, with long-term current use of insulin ([facility]) TAKE TWO TABLETS BY MOUTH [...] as of this encounter (statuses as of 04/07/2023) Active Problems Problem Noted Date Hypertensive heart [...] with fat layer exposed 01/09/2022 Atherosclerosis of [place] coronary arter y without angina pectoris 01/09/2022 [...] as of this encounter (statuses as of 04/07/2023) Resolved Problems Problem Noted Date Resolved Date [...] as of this encounter (statuses as of 04/07/2023) Immunizations Name Administration Dates Next Due COVID-19 mRNA, LNP-s, No Pre serve, 2-Dose Series (Moderna) 03/24/2021,02/22/2021 COVID-19, LNP-s, No Preserve , Ministerio-sucrose, Ages 12+ (Pfizer) 02/25/2022 Covid-19, Mrna, Lnp-s, Pf, B ivalent, 30 Mcg, IM, 12 yrs and above ([employer] 11/17/2022 Pneumococcal Conjugate Vacc, 13 Valent (Prevnar) [...] encounter Miscellaneous Notes * Telephone Encounter - Katherine Ugarte LPN - 04/07/2023 8:51 AM EDT Left voice message on patient's (Farhana) cell phone to return call to office. * Telephone Encounter - Katherine Ugarte LPN - 04/07/2023 7:25 AM EDT [...] Description 04/20/2023 Nutrition Services Nutrition Services Dinah Mohamud RDN [address] [place] [address] 05/19/2023 Office Visit Otolaryngology Gurinder Arias, DO [address] [place] [address] 05/27/2023 Office Visit Pharmacy [facility] Erica [address] [place] [address] 06/26/2023 Office Visit Podiatry Kylie Burroughs Marga [address] [facility] [place] [address] 07/13/2023 Office Visit Cardiology Del Díaz Jr., DO 09/03/2023 Office Visit Family Medicine James Maria, [address] [place] [address] 09/11/2023 Office Visit Dermatology Lily Piedra MD [address] [place] [address], [place] [address] 02/08/2024 Office Visit Family Medicine James Maria DO [address] [place] [address] Scheduled Procedures Name Priority Associated Diagnoses Date/Ti [...] Sebastian Spouse Health Care Agent Care Teams Electrolysis Engineer Relationship Specialty Start Date End Date James Maria DO [address] [place] [address] PCP - General Family Medicine 06/07/18 documented as of this encounter
--- OUTSIDE RECORDS SUMMARY | 2023-07-31 19:43 | External Medical Summary | Summary of Care ---
Author Name Unknown Organization [facility] Address [address] [facility] [address] Phone [phone] Care Team Providers Care Clinical Specialist Medical Device Name Role Phone James Maria Primary Care Provider Reason for Visit * Reason Onset Date Comments Test Results 04/06/2023 Encounter Details Date Type Department Care Team Description 04/06/2023 Telephone Dermatology [facility] [place] [address] [facility] [place] [address] Lily Piedra MD 200 [place] [address] Test Results Allergies Active Allergy Reactions Severity Noted Date [...] 11 12/27/2021 Active FreeStyle Rose Marie 2 [place] Device Test blood sugars four times daily 1 Each 0 12/27/2021 Active Pen [place] 32G X 4 MMIndications:Type 2 diabetes mellitus with hemoglobin A1c goal of less than 8.0% ([facility]) Use as directed . Use to [...] goal of less than 8.0% ([facility]) INJECT 15 UNITS UNDER THE SKIN BEFORE BEDTIME 15 mL 3 02/09/2023 Active metFORMIN HCl ER 500 MG Oral Tablet Extended Release 24 Hour (Glucophage XR)Indications:Type 2 diabetes mellitus with diabetic neuropathy, with long-term current use of insulin ([facility]) TAKE TWO TABLETS BY MOUTH EVERY [...] with fat layer exposed 01/09/2022 Atherosclerosis of [place] coronary arter y without angina pectoris 01/09/2022 [...] with worsening symptoms. Will plan nurse or [facility] provider telemedicine recheck visit one [...] 30 Mcg, IM, 12 yrs and above ([employer]) 11/17/2022 Pneumococcal Conjugate Vacc, 13 Valent (Prevnar) [...] Encounter - Katherine Ugarte LPN - 04/07/2023 8:50 AM EDT Left voice message on patient's (Farhana) cell phone to return call. * Telephone Encounter - Katherine Ugarte LPN - 04/06/2023 7:22 AM EDT ----- Message from Lily Piedra MD sent at 04/05/2023 7:24 AM EDT ----- Please let pt know staph had a lot or resistance and the cipro isn't convering well. Only option is clindamycin is still infected. If pt not getting care at wound center now, please arrange derm follow up in next 1-2 wks. thanks documented in this encounter Plan of Treatment Upcoming Encounters Date Type Specialty Care Team Description 04/20/2023 Nutrition Services Nutrition Services Dinah Mohamud, FELIPEN [address] [place] [address] 05/19/2023 Office Visit Otolaryngology Gurinder Arias, DO [address] [place] [address] 05/27/2023 Office Visit Pharmacy [facility] Erica [address] [place] [address] 06/26/2023 Office Visit Podiatry [facility]ylie Burroughs, [facility] [id number] 07/13/2023 Office Visit Cardiology Del Díaz Jr., DO 09/03/2023 Office Visit Family Medicine James Maria, [address] [place] [address] 09/11/2023 Office Visit Dermatology Lily Piedra MD [address] [place] [address], [place] [address] 02/08/2024 Office Visit Family Medicine James Maria, [address] [place] [address] Scheduled Procedures Name Priority Associated Diagnoses Date/Ti [...] Spouse Health Care Agent Care Teams Clinical Specialist Medical Device Relationship Specialty Start Date End Date James Maria, [address] [place] [address] PCP - General Family Medicine 06/07/18 documented as of this encounter
--- OUTSIDE RECORDS SUMMARY | 2023-07-31 19:43 | External Medical Summary | Summary of Care ---
Author Name Unknown Organization [facility] Address [address] [facility] [address] Phone [phone] Care Team Providers Care Folding Machine Tender Name Role Phone James Maria Primary Care Provider Reason for Visit * Reason Onset Date Comments Test Results Biopsy 04/07/2023 Encounter Details Date Type Department Care Team Description 04/07/2023 Telephone Dermatology [facility] [place] [address] [facility] [place] [address] Lily Piedra MD [address] [facility] [place] [address] Test Results Biopsy Allergies Active Allergy Reactions [...] 11 12/27/2021 Active FreeStyle Rose Marie 2 [place] Device Test blood sugars four times daily 1 Each 0 12/27/2021 Active Pen [place] 32G X 4 MMIndications:Type 2 diabetes mellitus with hemoglobin A1c goal of less than 8.0% ([facility]) Use as directed . Use to inject [...] hemoglobin A1c goal of less than 8.0% ([facility]) INJECT 15 UNITS UNDER THE SKIN BEFORE BEDTIME 15 mL 3 02/09/2023 Active metFORMIN HCl ER 500 MG Oral Tablet Extended Release 24 Hour (Glucophage XR)Indications:Type 2 diabetes mellitus with diabetic neuropathy, with long-term current use of insulin ([facility]) TAKE TWO TABLETS BY MOUTH EVERY MORNING [...] with fat layer exposed 01/09/2022 Atherosclerosis of [place] coronary arter y without angina pectoris 01/09/2022 [...] 30 Mcg, IM, 12 yrs and above ([employer]) 11/17/2022 Pneumococcal Conjugate Vacc, 13 Valent (Prevnar) [...] Mohamud, FELIPEN [address] [place] [address] 05/19/2023 Office Visit Otolaryngology Gurinder Arias, DO [address] [place] [address] 05/27/2023 Office Visit Pharmacy [facility] Erica [address] [place] [address] 06/26/2023 Office Visit Podiatry Kylie Burroughs, DP [address] [facility] [place] [address] 07/13/2023 Office Visit Cardiology Del Díaz Jr., DO 09/03/2023 Office Visit Family Medicine James Maria, [address] [place] [address] 09/11/2023 Office Visit Dermatology Lily Piedra MD [address] [place] [address] 02/08/2024 Office Visit Family Medicine James Maria, DO [address] [place] [address] Scheduled Procedures Name Priority Associated Diagnoses Date/Ti [...] Sebastian Spouse Health Care Agent Care Teams Folding Machine Tender Relationship Specialty Start Date End Date James Maria DO [address] [place] [address] PCP - General Family Medicine 06/07/18 documented as of this encounter
--- OUTSIDE RECORDS SUMMARY | 2023-07-31 19:43 | External Medical Summary | Summary of Care ---
Author Name Unknown Organization [facility] Address [address] [facility] [address] Phone [phone] Care Team Providers Care Lip Of Shank Cutter Name Role Phone James Maria Primary Care Provider Reason for Visit * Reason Onset Date Comments Test Results Biopsy 04/07/2023 Encounter Details Date Type Department Care Team Description 04/07/2023 Telephone Dermatology [facility] [place] [address] [facility] [place] [address] Lily Piedra MD [address] [facility] [place] [address] Test Results Biopsy Allergies Active Allergy Reactions [...] 11 12/27/2021 Active FreeStyle Rose Marie 2 [place] Device Test blood sugars four times daily 1 Each 0 12/27/2021 Active Pen [place] 32G X 4 MMIndications:Type 2 diabetes mellitus with hemoglobin A1c goal of less than 8.0% ([facility]) Use as directed . Use to [...] A1c goal of less than 8.0% ([facility]) INJECT 15 UNITS UNDER THE SKIN BEFORE BEDTIME 15 mL 3 02/09/2023 Active metFORMIN HCl ER 500 MG Oral Tablet Extended Release 24 Hour (Glucophage XR)Indications:Type 2 diabetes mellitus with diabetic neuropathy, with long-term current use of insulin ([facility]) TAKE TWO TABLETS BY MOUTH EVERY [...] with fat layer exposed 01/09/2022 Atherosclerosis of [place] coronary arter y without angina pectoris 01/09/2022 [...] 30 Mcg, IM, 12 yrs and above ([employer]) 11/17/2022 Pneumococcal Conjugate Vacc, 13 Valent (Prevnar) [...] Mohamud, ALFIE [address] [place] [address] 05/19/2023 Office Visit Otolaryngology Gurinder Arias, DO [address] [place] [address] 05/27/2023 Office Visit Pharmacy [facility] Erica [address] [place] [address] 06/26/2023 Office Visit Podiatry Kylie Burroughs, [address] [address] 07/13/2023 Office Visit Cardiology Del Díaz Jr., DO 09/03/2023 Office Visit Family Medicine James Maria DO [address] [place] [address] 09/11/2023 Office Visit Dermatology Lily Piedra MD [address] [place] [address], [place] [address] 02/08/2024 Office Visit Family Medicine James Maria DO [address] [place] [address] Scheduled Procedures Name Priority Associated Diagnoses Date/Ti me COLONOSCOPY FLEXIBLE PROXIMA L DIAGNOSTIC Recall Encounter for screening colonoscopy Health Maintenance Due Date Last Done Comments HbA1c 07/30/2023 01/27/2023, 08/04, 05/21/2022, Additional history exists DIABETES-EYE EXAM 09/01/2023 09/01/2022, , 12/15/2019, Additional history exists DIABETES-FOOT EXAM 09/01/2023 09/01/2022, 0 02/28/2021, 10/13/2019, Additional history exists Yearly B-12 09/01/2023 09/01/2022, 11/02, 01/11/2018 Albumin/Creatinine Ratio 01/28/202401/27/2 023, 06/05/2022, 03/13/2020, Additional history exists GFR [...] Sebastian Spouse Health Care Agent Care Teams Lip Of Shank Cutter Relationship Specialty Start Date End Date James Maria DO [address] [place] [address] PCP - General Family Medicine 06/07/18 documented as of this encounter
--- OUTSIDE RECORDS SUMMARY | 2023-07-31 19:43 | External Medical Summary | Summary of Care ---
Author Name Unknown Organization [facility] Address [address] [facility] [place] [address] Phone [phone] Care Team Providers Care Oysterman Name Role Phone James Maria Primary Care Provider Reason for Visit * Reason Onset Date Comments Test Results 04/06/2023 Encounter Details Date Type Department Care Team Description 04/06/2023 Telephone Dermatology [facility] [place] [address] [facility] [place] [address] Lily Piedra MD 200 [place] [address] Test Results Allergies Active Allergy Reactions Severity [...] A1c goal of less than 8.0% ([facility]) Use up to 4 x a day for insulin dosing E11.9 3 Each 1 09/05/2021 Active FreeStyle Rose Marie 2 Sensor Test blood sugars four times daily 2 Each 11 12/27/2021 Active FreeStyle Rose Marie 2 [place] Device Test blood sugars four times daily 1 Each 0 12/27/2021 Active Pen [place] 32G X 4 MMIndications:Type 2 diabetes mellitus with hemoglobin A1c goal of less than 8.0% ([facility]) Use as directed . 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 Will plan nurse or [facility] provider telemedicine recheck visit one week [...] 30 Mcg, IM, 12 yrs and above ([employer]) 11/17/2022 Pneumococcal Conjugate Vacc, 13 Valent (Prevnar) [...] Ugarte LPN - 04/08/2023 2:29 PM EDT Patient's made aware of message from Dr. Piedra. * Telephone Encounter - Katherine Ugarte LPN - 04/08/2023 9:09 AM EDT Left a second message on patient's 's cell phone to return call. * Telephone [...] 04/20/2023 Nutrition Services Nutrition Services Dinah Mohamud, RDN [address] [place] [address] 05/19/2023 Office Visit Otolaryngology Gurinder Arias, DO [address] [place] [address] 05/27/2023 Office Visit Pharmacy [facility] Erica [address] [place] [address] 06/26/2023 Office Visit Podiatry Kylie Burroughs [address] [place] [address] 07/13/2023 Office Visit Cardiology Del Díaz Jr., 09/03/2023 Office Visit Family Medicine James Maria, DO [address] [place] [address] 09/11/2023 Office Visit Dermatology Lily Piedra MD [address] [place] [address], [place] [address] 02/08/2024 Office Visit Family Medicine [place] James Sherfiliberto, DO [address] [place] [address] Scheduled Procedures Name Priority Associated Diagnoses Date/Ti [...] Agents on File Name Relationship [facility] Farhana Sebastian Spouse Health Care Agent Care Teams Oysterman Relationship Specialty Start Date End Date James Maria DO [address] [place] [address] PCP - General Family Medicine 06/07/18 documented as of this encounter
--- OUTSIDE RECORDS SUMMARY | 2023-07-31 19:43 | External Medical Summary | Summary of Care ---
Author Name Unknown Organization [facility] Address [address] [facility] [place] [address] Phone [phone] Care Team Providers Care Airport Operations Manager Name Role Phone James Maria Primary Care Provider Reason for Visit * Reason Onset Date Comments Test Results 04/06/2023 Encounter Details Date Type Department Care Team Description 04/06/2023 Telephone Dermatology [facility] [place] [address] [facility] [place] [address] Lily Piedra MD 200 [place] [address] Test Results Allergies Active Allergy Reactions Severity [...] hemoglobin A1c goal of less than 8.0% ([facility]) Use up to 4 x a day for insulin dosing E11.9 3 Each 1 09/05/2021 Active FreeStyle Rose Marie 2 Sensor Test blood sugars four times daily 2 Each 11 12/27/2021 Active FreeStyle Rose Marie 2 [place] Device Test blood sugars four times daily 1 Each 0 12/27/2021 Active Pen [place] 32G X 4 MMIndications:Type 2 diabetes mellitus with hemoglobin A1c goal of less than 8.0% ([facility]) Use as directed . Use to inject [...] hemoglobin A1c goal of less than 8.0% ([facility]) INJECT 15 UNITS UNDER THE SKIN BEFORE BEDTIME 15 mL 3 02/09/2023 Active metFORMIN HCl ER 500 MG Oral Tablet Extended Release 24 Hour (Glucophage XR)Indications:Type 2 diabetes mellitus with diabetic neuropathy, with long-term current use of insulin ([facility]) TAKE TWO TABLETS BY MOUTH EVERY MORNING [...] with fat layer exposed 01/09/2022 Atherosclerosis of [place] coronary arter y without angina pectoris 01/09/2022 [...] with worsening symptoms. Will plan nurse or [facility] provider telemedicine recheck visit one [...] 30 Mcg, IM, 12 yrs and above ([employer]) 11/17/2022 Pneumococcal Conjugate Vacc, 13 Valent (Prevnar) [...] to return call. * Telephone Encounter - Ktaherine Ugarte LPN - 04/06/2023 7:22 AM EDT [...] Mohamud, ALFIE [address] [place] [address] 05/19/2023 Office Visit Otolaryngology Gurinder Arias, DO [address] [place] [address] 05/27/2023 Office Visit Pharmacy [facility] Erica [address] [place] [address] 06/26/2023 Office Visit Podiatry Kylie Burroughs [address] [place] [address] 07/13/2023 Office Visit Cardiology Del Díaz Jr., DO 09/03/2023 Office Visit Family Medicine James Maria, [address] [place] [address] 09/11/2023 Office Visit Dermatology Lily Piedra MD [address] [place] [address], [place] [address] 02/08/2024 Office Visit Family Medicine James Maria DO [address] [place] [address] Scheduled Procedures Name Priority Associated Diagnoses Date/Ti me COLONOSCOPY FLEXIBLE PROXIMA L DIAGNOSTIC Recall Encounter for screening colonoscopy [facility] Maintenance Due Date Last Done Comments [...] Agents on File Name Relationship Healthcare Agent [facility] p Communication Farhana Sebastian Spouse Health Care Agent Care Teams Airport Operations Manager Relationship Specialty Start Date End Date James Maria, [address] [place] [address] PCP - General Family Medicine 06/07/18 documented as of this encounter
--- OUTSIDE RECORDS SUMMARY | 2023-07-31 19:43 | External Medical Summary | Summary of Care ---
Author Name Unknown Organization [facility] Address [address] [facility] [place] [address] Phone [phone] Care Team Providers Care Aircraft Detail Draftsperson Name Role Phone James Maria Primary Care Provider Reason for Visit * Reason Onset Date Comments Test Results 04/06/2023 Encounter Details Date Type Department Care Team Description 04/06/2023 Telephone Dermatology [facility] [place] 200 [facility] [place] [address] Lily Piedra MD 200 [place] [address] Test Results Allergies Active Allergy Reactions Severity Noted Date Comments Lisinopril Edema face/lips/tongue High 04/05/2018 documented as of this encounter (statuses as of 04/06/2023) Medications Medication Sig Dispensed Refills Start Date [...] hemoglobin A1c goal of less than 8.0% ([facility]) Use up to 4 x a day for insulin dosing E11.9 3 Each 1 09/05/2021 Active FreeStyle Rose Marie 2 Sensor Test blood sugars four times daily 2 Each 11 12/27/2021 Active FreeStyle Rose Marie 2 [place] Device Test blood sugars four times daily 1 Each 0 12/27/2021 Active Pen [place] 32G X 4 MMIndications:Type 2 diabetes mellitus with hemoglobin A1c goal of less than 8.0% ([facility]) Use as directed . Use to [...] hemoglobin A1c goal of less than 8.0% ([facility]) INJECT 15 UNITS UNDER THE SKIN BEFORE BEDTIME 15 mL 3 02/09/2023 Active metFORMIN HCl ER 500 MG Oral Tablet Extended Release 24 Hour (Glucophage XR)Indications:Type 2 diabetes mellitus with diabetic neuropathy, with long-term current use of insulin ([facility]) TAKE TWO TABLETS BY MOUTH EVERY MORNING 180 Tablet 3 02/26/2023 Active Silver sulfADIAZINE 1 % External Cream (Silvadene) Apply to wounds on hands 100 g 1 04/01/2023 Active Ciprofloxacin HCl 500 MG Oral Tablet (Cipro) Take 1 Tablet by mouth in the morning and 1 Tablet before bedtime. 14 Tablet 0 04/01/2023 Active documented as of this encounter (statuses as of 04/06/2023) Active Problems Problem Noted Date Hypertensive heart [...] with fat layer exposed 01/09/2022 Atherosclerosis of [place] coronary arter y without angina pectoris 01/09/2022 [...] as of this encounter (statuses as of 04/06/2023) Resolved Problems Problem Noted Date Resolved Date [...] with worsening symptoms. Will plan nurse or [facility] provider telemedicine recheck visit one week [...] as of this encounter (statuses as of 04/06/2023) Immunizations Name Administration Dates Next Due COVID-19 mRNA, LNP-s, No Pre serve, 2-Dose Series (Moderna) 03/24/2021,02/22/2021 COVID-19, LNP-s, No Preserve , Ministerio-sucrose, Ages 12+ (Pfizer) 02/25/2022 Covid-19, Mrna, Lnp-s, Pf, B ivalent, 30 Mcg, IM, 12 yrs and above ([employer]) 11/17/2022 Pneumococcal Conjugate Vacc, 13 Valent (Prevnar) [...] Mohamud, FELIPEN [address] [place] [address] 05/19/2023 Office Visit Otolaryngology Gurinder Arias, DO [address] [place] [address] 05/27/2023 Office Visit Pharmacy [facility] Erica [address] [place] [address] 06/26/2023 Office Visit Podiatry Kylie Burroughs, REMEDIOS [address] [facility] [place] [address] 07/13/2023 Office Visit Cardiology Del Díaz Jr., 09/03/2023 Office Visit Family Medicine James Maria DO [address] [place] [address] 09/11/2023 [facility] [address] [place] [address], [place] [address] 02/08/2024 Office Visit Family Medicine James Mraia DO [address] [place] [address] Scheduled Procedures Name Priority Associated Diagnoses Date/Ti [...] Jaz Spouse Health Care Agent Care Teams Aircraft Detail Draftsperson Relationship Specialty Start Date End Date James Maria DO [address] [place] [address] PCP - General Family Medicine 06/07/18 documented as of this encounter
--- OUTSIDE RECORDS SUMMARY | 2023-07-31 19:44 | External Medical Summary | Summary of Care ---
Author Name Unknown Organization [facility] Address [address] [place] [address] Phone [phone] Care Team Providers Care Dry Chain Operator Name Role Phone James Maria Primary Care Provider Reason for Visit * Reason Comments Follow Up Here for blisters on fingers. Encounter Details Date Type Department Care Team Description 04/01/2023 Office Visit Dermatology [facility] [place] [address] [facility] [place] [address] Lily Piedra MD 200 [facility] [place] [address] Skin bulla*; Open wound of finger of left hand, initial encounter Allergies Active Allergy Reactions Severity Noted Date Comments Lisinopril Edema face/lips/tongue High 04/05/2018 documented as of this encounter (statuses as of 04/01/2023) Medications Medication Sig Dispensed Refills Start Date [...] times a day E11.9 300 Strip 3 10/23/201 7 Active Fluorouracil 5 % External Cream [...] 11 2 Active FreeStyle Rose Marie 2 [place] Device Test blood sugars four times daily 1 Each 0 2 Active Pen [place] 32G X 4 MMIndications:Type 2 diabetes mellitus with hemoglobin A1c goal of less than 8.0% ([facility]) Use as directed . Use [...] 3 3 Active Eliquis 5 MG Oral TabletIndications:af ib Take [...] EVERY MORNING 100 Capsule 2 3 Active Metoprolol Tartrate 25 MG Oral Tablet (Lopressor)Indicatio ns:Chronic atrial fibrillation (HCC) Take 1 Tablet by mouth in the morning and 1 Tablet before bedtime. 180 Tablet 0 3 Active NovoLOG FlexPen 100 UNIT/ML Subcutaneous Solution Pen-injector (insulin aspart) INJECT UNDER THE SKIN 5 UNITS THREE TIMES A DAY WITH MEALS 15 mL 3 3 Active Gentamicin Sulfate 0.1 % External OintmentIndications: [...] before bedtime. 14 Tablet 0 3 Active Silver sulfADIAZINE 1 % External Cream (Silvadene) Apply to sores on hands 3 times daily until healed 50 g 3 2 023 Discontinued(Re fill) Silver sulfADIAZINE 1 % External Cream (Silvadene) Apply to sores on hands 3 times daily until healed 50 g 3 3 023 Discontinued documented as of this encounter (statuses as of 04/01/2023) Active Problems Problem Noted Date Hypertensive heart [...] with fat layer exposed 01/09/2022 Atherosclerosis of [place] coronary arter y without angina pectoris 01/09/2022 [...] as of this encounter (statuses as of 04/01/2023) Resolved Problems Problem Noted Date Resolved Date [...] as of this encounter (statuses as of 04/01/2023) Immunizations Name Administration Dates Next Due COVID-19 [...] as of this encounter Progress Notes * Lily Piedra MD - 04/01/2023 12:22 PM EDT Chief Complaint Patient presents with Follow Up Here for blisters on fingers. History of Present Illness: Selvin Sebastian is a 77 year old male seen today for follow up of blisters on hands. 01/28/2023 (in office), see last visit - took cipro and things got temporarily better, now getting more blisters again. Biopsies and dif non- diagnostic in past, amyloid bx neg Has deep wounds on left hand. Not using any care. Not healing. Is seeing wound care for foot, but they're not currently treating hands MEDICA TIONS: Current Outpatient Medications Medication Sig [...] 2 Each 11 FreeStyle Rose Marie 2 [place] Device Test blood sugars four times daily 1 Each 0 Pen [place] 32G X 4 MM Use as directed . Use to inject insulin up to 4 times daily. 400 Each 3 Insulin Aspart 100 UNIT/ML Injection Solution 5 Units. Pt takes 5 to 6 units before meals Silver sulfADIAZINE 1 % External Cream (Silvadene) Apply to sores on hands 3 times daily until healed 50 g 3 Furosemide 40 MG Oral Tablet (Lasix) Take [...] CAPSULE BY MOUTH EVERY MORNING 100 Capsule2 Metoprolol Tartrate 25 MG Oral Tablet (Lopressor) Take 1 Tablet by mouth in the morning and 1 Tablet before bedtime. 180 Tablet 0 NovoLOG FlexPen 100 UNIT/ML Subcutaneous Solution Pen-injector [...] bedtime. (Patient not taking: Reported on 02/03/2023) Npmiejc-Fbhwrc-Mtetz Pertussis 5-2.5-18.5 LF-MCG/0.5 Suspension Prefilled Syringe (Boostrix) Administer 0.5ml intramuscularly as directed 0.5 mL 0 Lantus SoloStar 100 UNIT/ML Subcutaneous Solution Pen-injector (Insulin Glargine Solostar) INJECT 15 UNITS UNDER THE SKIN BEFORE BEDTIME 15 mL 3 metFORMIN HCl ER 500 MG Oral Tablet Extended Release 24 Hour (Glucophage XR) TAKE TWO TABLETS BY MOUTH EVERY MORNING 180 Tablet 3 No current facility-administered medications for this visit. 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 Questions were answered. Risks including infection, bleeding, scar and expected care were outlined. Patient understands that further treatment may be recommended for concerning pathology. The lesion in questions was identified with skin marking pen and photographed. Location: A R dorsal hand margin of lesion B. R dorsal hand perilesional . The site was prepped with alcohol and anesthetized with <2.5mL buffered 0.5% lidocaine with 1:200,000 epinephrine. A 4 mm punch tool was used to remove lesion. Specimen in formalin to dermatopathology. gelfoam, dressing applied and wound instructions given. We will correspond regarding results and further treatment recommendations as appropriate. 2. Ulcerations L hand May have started as blisters Dressed today - start ciprofloxacin 500 BID for 1 wk Start silvadene dressings until can be seen by wound Called wound center to ask for care (he has appt Thursday for foot) Follow-up: 1 mo There were no barriers tolearning and no other pain was related to today's visit. The patient and/or person accompanying patient demonstrates understanding of the visit and treatment. Lily Piedra MD 04/01/2023 12:23 PM documented in this encounter Nursing Notes * Pam Ferreira LPN - 04/01/2023 12:23 PM EDT Patient identified by name and date of . Do you have any concerns about pain management for today's visit? No Living Will or Advance Directive for Health Care as noted on problem list. [facility] is a way you can talk to your provider online through e-mail. Would you like to sign up? I can activate it for you? ALREADY ACTIVE Chief Complaint Patient presents with Follow Up Here for blisters on fingers. documented in this encounter Plan of Treatment Upcoming Encounters Date Type Specialty Care Team Description 04/20/2023 Nutrition Services Nutrition Services Dinah Mohamud RDN [address] [place] [address] 05/19/2023 Office Visit Otolaryngology Gurinder Arias, DO [address] [place] [address] 05/27/[address] [facility] Erica [address] [place] [address] 06/26/2023 Office Visit Podiatry Kylie Burroughs, REMEDIOS [address] [facility] [place] [address] 07/13/2023 Office Visit Cardiology Del Díaz Jr., DO 09/03/2023 Office Visit Family Medicine James Maria, [address] [place] [address] 09/11/2023 Office Visit Dermatology Lily Piedra MD [address] [place] [address], [place] [address] 02/08/2024 Office Visit Family Medicine James Maria, DO [address] [place] [address] Pending Results Name Type Priority Associated Diagnoses Date /Time SURGICAL PATHOLOGY Pathology Routine Skin bulla 04/01/2023 12:48 PM EDT CULTURE, WOUND, SUPERFICIAL, AEROBIC Lab Routine Open wound of finger of left hand, initial encounter 04/01/2023 12:54 PM EDT Scheduled Procedures Name Priority Associated [...] as of this encounter Visit Diagnoses Diagnosis Skin bulla- Primary Other specified disorder of skin Open wound of finger of left hand, initial encounter documented in this encounter Advance Directives Healthcare Agents on File Name Relationship Healthcare Agent Relationshi p Communication Farhana Sebastian Spouse Health Care Agent Care Teams Dry Chain Operator Relationship Specialty Start Date End Date James Maria DO [address] [place] [address] PCP - General Family Medicine 06/07/18 documented as of this encounter
--- OUTSIDE RECORDS SUMMARY | 2023-07-31 19:44 | External Medical Summary | Summary of Care ---
Author Name Unknown Organization [facility] Address [address] [facility] [place] [address] Phone [phone] Care Team Providers Care Lead Simulation Modeling Engineer Name Role Phone Rylan Mariar Sophy Primary Care Provider Encounter Details Date Type Department Care Team Description 03/25/2023 Telephone [facility] [place] [address] [place] [address] Wendy Cisneros CRNP [address] [facility] [place] [address] Allergies Active Allergy Reactions Severity Noted Date Comments Lisinopril Edema face/lips/tongue High 04/05/2018 documented as of this encounter (statuses as of 03/25/2023) Medications Medication Sig Dispensed Refills Start Date [...] 11 12/27/2021 Active FreeStyle Rose Marie 2 [place] Device Test blood sugars four times daily 1 Each 0 12/27/2021 Active Pen [place] 32G X 4 MMIndications:Type 2 diabetes mellitus with hemoglobin A1c goal of less than 8.0% ([facility]) Use as directed . Use to inject insulin up to 4 times daily. 400 Each 3 01/06/2022 Active Insulin Aspart 100 UNIT/ML Injection Solution 5 Units. Pt takes 5 to 6 units before meals 0 05/16/2022 Active Silver sulfADIAZINE 1 % External Cream (Silvadene) Apply to sores on hands 3 times daily until healed 50 g 3 08/27/2022 Active Furosemide 40 MG Oral Tablet (Lasix) [...] EVERY MORNING 180 Tablet 3 02/26/2023 Active documented as of this encounter (statuses as of 03/25/2023) Active Problems Problem Noted Date Hypertensive heart [...] with fat layer exposed 01/09/2022 Atherosclerosis of [place] coronary arter y without angina pectoris 01/09/2022 [...] as of this encounter (statuses as of 03/25/2023) Resolved Problems Problem Noted Date Resolved Date [...] as of this encounter (statuses as of 03/25/2023) Immunizations Name Administration Dates Next Due COVID-19 mRNA, LNP-s, No Pre serve, 2-Dose Series (Moderna) 03/24/2021,02/22/2021 COVID-19, LNP-s, No Preserve , Ministerio-sucrose, Ages 12+ (Pfizer) 02/25/2022 Covid-19, Mrna, Lnp-s, Pf, B ivalent Booster, 30 Mcg, IM, 12 yrs and above [...] encounter Miscellaneous Notes * Telephone Encounter - BARTOLO Bentley - 03/25/2023 2:19 PM EDT I continue to get refill/form requests from [facility] for patients Rose Marie supplies. [place] is no longer following pt. The forms needs sent to PCP for signature. [employer] #[phone] fax [phone] Sharing with intake to call and request they fax to pcp. Sharing with pcp and MTM as FYI. documented in this encounter Plan of Treatment Upcoming Encounters Date Type Specialty Care Team Description 04/01/2023 Office Visit Dermatology Lily Piedra MD [address] [place] [address] 04/03/2023 Office Visit Otolaryngology Gurinder Arias DO [address] [place] [address] 04/20/2023 Nutrition Services Nutrition Services Dinah Mohamud, FELIPEN [address] [place] [address] 05/27/2023 Office Visit Pharmacy [facility] Erica [address] [place] [address] 06/26/2023 Office Visit Podiatry Kylie Burroughs, REMEDIOS [address] [facility] [place] [address] 07/13/2023 Office Visit Cardiology Del Díaz Jr., DO 09/03/2023 Office Visit Family Medicine James Maria DO [address] [place] [address] 09/11/2023 Office Visit Dermatology Lily Piedra MD [address] [place] [address], [place] [address] 02/08/2024 Office Visit Family Medicine James Maria DO [address] [place] [address] Scheduled Procedures Name Priority Associated Diagnoses Date/Ti [...] Sebastian Spouse Health Care Agent Care Teams Lead Simulation Modeling Engineer Relationship Specialty Start Date End Date James Maria DO [address] [place] [address] PCP - General Family Medicine 06/07/18 documented as of this encounter
--- OUTSIDE RECORDS SUMMARY | 2023-07-31 19:44 | External Medical Summary | Summary of Care ---
Author Name Unknown Organization [facility] Address [address] [place] [address] Phone [phone] Care Team Providers Care Tyre Retreader Name Role Phone Rylan Mariar Sophy Primary Care Provider Reason for Visit * Reason Onset Date Comments Appointment 03/04/2023 Encounter Details Date Type Department Care Team Description 03/04/2023 Telephone Podiatry, [facility] [address] [place] [address] Kylie Burroughs, REMEDIOS [address] [place] [address] Appointment Allergies Active Allergy Reactions Severity Noted Date Comments Lisinopril Edema face/lips/tongue High 04/05/2018 documented as of this encounter (statuses as of 03/04/2023) Medications Medication Sig Dispensed Refills Start Date [...] 11 12/27/2021 Active FreeStyle Rose Marie 2 [place] Device Test blood sugars four times daily 1 Each 0 12/27/2021 Active Pen [place] 32G X 4 MMIndications:Type 2 diabetes mellitus [...] as of this encounter (statuses as of 03/04/2023) Active Problems Problem Noted Date Hypertensive heart [...] with fat layer exposed 01/09/2022 Atherosclerosis 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 documented in this encounter Plan of Treatment Upcoming Encounters Date Type Specialty Care Team Description 03/23/2023 [facility] [address] [place] [address] 04/03/2023 Office Visit Otolaryngology Gurinder Arias DO [address] [place] [address] 04/20/2023 Nutrition Services Nutrition Services Dinah Mohamud RDN [address] [place] [address] 05/27/2023 Office Visit Pharmacy [facility], [facility] Erica [address] [place] [address] 07/13/2023 Office Visit Cardiology Del Díaz Jr., DO 09/03/2023 Office Visit Family Medicine James Maria, [address] [place] [address] 09/11/2023 Office Visit Dermatology Lily Piedra MD [address] [place] [address] 02/08/2024 Office Visit Family Medicine James Maria, [address] [place] [address] Scheduled Procedures Name Priority Associated Diagnoses Date/Ti me COLONOSCOPY FLEXIBLE PROXIMA L DIAGNOSTIC Recall Encounter for screening colonoscopy Health Maintenance Due Date Last Done Comments HgA1C 07/30/2023 01/27/2023, 08/04, 05/21/2022, Additional history exists DIABETES-EYE EXAM 09/01/2023 09/01/2022, , 12/15/2019, Additional history exists DIABETES-FOOT EXAM 09/01/2023 09/01/2022, 0 02/28/2021, 10/13/2019, Additional history exists Yearly B-12 09/01/2023 09/01/2022, 11/02, 01/11/2018 Albumin/Creatinine Ratio 01/28/2024 023, 06/05/2022, 03/13/2020, Additional history exists GFR - Renal Function 01/28/2024 01/27/2023, 11/20/2022, 11/14/2022, Additional history exists Depression Screening, Annual [...] Sebastian Spouse Health Care Agent Care Teams Tyre Retreader Relationship Specialty Start Date End Date James Maria DO [address] [place] [address] PCP - General Family Medicine 06/07/18 documented as of this encounter
--- OUTSIDE RECORDS SUMMARY | 2023-07-31 19:44 | External Medical Summary ---
Author Name Unknown Address Unknown Organization K01:[facility] [address] [facility] [address] [place] [address] Laboratory Report Ordering Provider Test Date Status HERMES GOMEZ 04/01/2023 12:54:06 Final Observation Date Value Abnormality Reference (Units ) Status Bacteria identified in Unspecified specimen by Culture 04/01/2023 12:54:06 [id number]^STAPHYLO COCCUS, COAGULASE NEGATIVE Abnormal Final Performing Location [facility] [address] [place] [address] Ordering Provider Test Date Status HERMES GOMEZ 04/01/2023 12:54:06 Final Observation Date Value Abnormality Reference (Units ) Status Clindamycin 04/01/2023 12:54:06 <=0.25 Susceptible Final Erythromycin susceptibility 04/01/2023 12:54:06 >=8 Resistant Final Oxacillinsusceptibility 04/01/2023 12:54:06 >=4 Resistant Final Performing Location [facility] [place] [address] [place] [address]
--- OUTSIDE RECORDS SUMMARY | 2023-07-31 19:44 | External Medical Summary | Summary of Care ---
Author Name Unknown Organization [facility] Address [address] [place] [address] Phone [phone] Care Team Providers Care Cut Off Saw Operator Metal Name Role Phone James Maria Primary Care Provider Reason for Visit * Reason Comments Follow Up Here for blisters on fingers. Encounter Details Date Type Department Care Team Description 04/01/2023 Office Visit Dermatology Dakota S[facility]chez [place] [address] [facility] [place] [address] Lily Piedra MD 200 [facility] [place] [address] Skin bulla*; Open wound of finger of [...] 11 2 Active FreeStyle Rose Marie 2 [place] Device Test blood sugars four times daily 1 Each 0 2 Active Pen [place] 32G X 4 MMIndications:Type 2 diabetes mellitus with hemoglobin A1c goal of less than 8.0% ([facility]) Use as directed . Use to inject [...] with fat layer exposed 01/09/2022 Atherosclerosis of [place] coronary arter y without angina pectoris 01/09/2022 [...] 2 Each 11 FreeStyle Rose Marie 2 [place] Device Test blood sugars four times daily 1 Each 0 Pen [place] 32G X 4 MM Use as directed [...] bedtime. (Patient not taking: Reported on 02/03/2023) Bacgojx-Ktvimi-Dsshn Pertussis 5-2.5-18.5 LF-MCG/0.5 Suspension Prefilled Syringe (Boostrix) [...] wound instructions given. We will correspond regarding resultsand further treatment recommendations as appropriate. 2. Ulcerations [...] Mohamud RDN [address] [place] [address] 05/19/2023 Office Visit Otolaryngology Gurinder Arias, DO [address] [place] [address] 05/27/2023 Office Visit Pharmacy [facility] Erica [address] [place] [address] 06/26/2023 Office Visit Podiatry Kylie Burroughs, REMEDIOS [address] [facility] [place] [address] 07/13/2023 Office Visit Cardiology Del Díaz Jr., DO 09/03/2023 Office Visit Family Medicine James Maria, [address] [place] [address] 09/11/2023 Office Visit Dermatology Lily Piedra MD [address] [place] [address], [place] [address] 02/08/2024 Office Visit Family Medicine James Maria, DO [address] [place] [address] Pending Results Name Type Priority Associated Diagnoses [...] Sebastian Spouse Health Care Agent Care Teams Cut Off Saw Operator Metal Relationship Specialty Start Date End Date James Maria DO [address] [place] [address] PCP - General Family Medicine 06/07/18 documented as of this encounter
--- OUTSIDE RECORDS SUMMARY | 2023-07-31 19:44 | External Medical Summary | Summary of Care ---
Author Name Unknown Organization [facility] Address [address] [facility] [place] [address] Phone [phone] Care Team Providers Care Reed Repairer Name Role Phone Yariel Mariavor Sophy Primary Care Provider Reason for Visit * Reason Comments eRx-Medication Refill Encounter Details Date Type Department Care Team Description 02/26/2023 Refill [facility], [facility] [address] [place] [address] Wendy Cisneros CRNP [address] [place] [address] Type 2 diabetes mellitus with diabetic neuropathy, with long-term current use of insulin ([facility]) Allergies Active Allergy Reactions Severity Noted Date Comments Lisinopril Edema face/lips/tongue High 04/05/2018 documented as of this encounter (statuses as of 02/26/2023) Medications Medication Sig Dispensed Refills Start Date [...] 11 2 Active FreeStyle Rose Marie 2 [place] Device Test blood sugars four times daily 1 Each 0 2 Active Pen [place] 32G X 4 MMIndications:Type 2 diabetes mellitus with hemoglobin A1c goal of less than 8.0% ([facility]) Use as directed . Use to inject insulin up to 4 times daily. 400 Each 3 2 Active Insulin Aspart 100 UNIT/ML Injection Solution 5 Units. Pt takes 5 to 6 units before meals 0 2 Active Silver sulfADIAZINE 1 % External Cream (Silvadene) Apply to sores on hands 3 times daily until healed 50 g 3 2 Active Furosemide 40 MG Oral Tablet [...] neuropathy, with long-term current use of insulin ([facility]) TAKE TWO TABLETS BY MOUTH EVERY MORNING 180 Tablet 3 3 Active metFORMIN HCl ER 500 MG Oral Tablet Extended Release 24 Hour (Glucophage XR)Indications:Type 2 diabetes mellitus with diabetic neuropathy, with long-term current use of insulin ([facility]) Take by mouth 2 Tablets in the morning. 180 Tablet 3 2 02/27/20 23 Discontinued documented as of this encounter (statuses as of 02/26/2023) Active Problems Problem Noted Date Hypertensive heart [...] with fat layer exposed 01/09/2022 Atherosclerosis of [place] coronary arter y without angina pectoris 01/09/2022 [...] as of this encounter (statuses as of 02/26/2023) Resolved Problems Problem Noted Date Resolved Date [...] as of this encounter (statuses as of 02/26/2023) Immunizations Name Administration Dates Next Due COVID-19 [...] encounter Miscellaneous Notes * Telephone Encounter - Julia Johnson MD - 02/26/2023 6:59 PM EDT Signed Prescriptions: Disp Refills metFORMIN HCl ER 500 MG Oral Tablet Extend*180 Ta*3 Sig: TAKE TWO TABLETS BY MOUTH EVERY MORNING Authorizing Provider: JULIA JOHNSON * Telephone Encounter - BARTOLO Bentley - 02/26/2023 4:48 PM EDTPending Prescriptions: Disp Refills metFORMIN HCl ER 500 MG Oral Tablet Extend*180 Ta*3 Sig: TAKE TWO TABLETS BY MOUTH EVERY MORNING * Telephone Encounter - Pinky Flores LPN - 02/26/2023 4:34 PM EDTPending Prescriptions: Disp Refills metFORMIN HCl ER 500 MG Oral Tablet Extend*180 Ta*3 Sig: TAKE TWO TABLETS BY MOUTH EVERY MORNING * Telephone Encounter - Pinky Flores LPN - 02/26/2023 4:31 PM EDT Did you pend patient's preferred pharmacy and medication before forwarding?yes Pharmacy: [facility] [place] Pending Prescriptions: Disp Refills metFORMIN HCl ER 500 MG Oral Tablet Exten*180 Ta*3 Sig: TAKE TWO TABLETS BY MOUTH EVERY MORNING Last Visit: Visit date not found (in office), 05/27/2022 (telemedicine) Next Visit: Visit date not found If no future appointments scheduled, and last appointment is greater than a year ago, please schedule patient for a follow-up appointment Last date the medication was ordered: 12/25/21 Is this request for a controlled substance?No Urine Drug Screen:No results found for this or any previous visit. Patient Phone Numbers [employer] [phone] [employer] [phone] Labs: Lab Results Component Value Date/Time CREAT [...] AM HGBA1C 7.4 (H) 03/13/2020 09:26 AM Pinky Flores LPN [facility] 02/26/2023,4:31 PM documented in this encounter Plan of Treatment Upcoming Encounters Date Type Specialty Care Team Description 03/23/2023 Office Visit Podiatry Kylie Burruoghs DPM [address] [place] [address] [place] [address] 04/03/2023 Office Visit Otolaryngology Gurinder Arias DO [address] [place] [address] 04/20/2023 Nutrition Services Nutrition Services Dinah Mohamud RDN [address] [place] [address] 05/27/2023 Office Visit Pharmacy Anatoly Vogel [facility] Erica [address] [place] [address] 07/13/2023 Office Visit Cardiology Del Díaz Jr., DO 09/03/2023 Office Visit Family Medicine James Maria, [address] [place] [address] 09/11/2023 Office Visit Dermatology Lily Piedra MD [address] [facility], [place] [address] 02/08/2024 Office Visit Family Medicine James Maria DO [address] [place] [address] Scheduled Procedures Name Priority Associated Diagnoses Date/Ti [...] Diagnoses Diagnosis Type 2 diabetes mellitus with diabetic neuropathy, with long-term current use of insulin (HCC) documented in this encounter Advance Directives Healthcare Agents on File Name [facility] Farhana Sebastian Spouse Health Care Agent Care Teams Reed Repairer Relationship Specialty Start Date End Date James Maria DO [address] [place] [address] PCP - General Family Medicine 06/07/18 documented as of this encounter
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
--- OUTSIDE RECORDS SUMMARY | 2023-07-31 19:44 | External Medical Summary | Summary of Care ---
Author Name Unknown Organization [facility] Address [address] [facility] [place] [address] Phone [phone] Care Team Providers Care Butcher Name Role Phone James Maria Primary Care Provider Reason for Visit * Reason Onset Date Comments [facility]: Maintenance 03/25/2023 Encounter Details Date Type Department Care Team Description 03/25/2023 Telephone [facility], [facility] [address] [place] [address] Wendy Cisneros CRNP [address] [place] [address] [facility]: Maintenance Allergies Active Allergy Reactions Severity Noted Date [...] less than 8.0% ([facility]) Use up to 4 x a day for insulin dosing E11.9 3 Each 1 09/05/2021 Active FreeStyle Rose Marie 2 Sensor Test blood sugars four times daily 2 Each 11 12/27/2021 Active FreeStyle Rose Marie 2 [place] Device Test blood sugars four times daily 1 Each 0 12/27/2021 Active Pen [place] 32G X 4 MMIndications:Type 2 diabetes mellitus with hemoglobin A1c goal of less than 8.0% ([facility]) Use as directed . Use to inject [...] with fat layer exposed 01/09/2022 Atherosclerosis of [place] coronary arter y without angina pectoris 01/09/2022 [...] 30 Mcg, IM, 12 yrs and above ([facility]) 11/17/2022 Pneumococcal Conjugate Vacc, 13 Valent (Prevnar) [...] encounter Miscellaneous Notes * Telephone Encounter - Jane Merino LPN - 03/25/2023 3:18 PM EDT [facility] Spoke to Sharla and made aware to contact PCP office withany medical issues as patient not with [facility] at this time. Gave PCP name and contact info. * Telephone Encounter - BARTOLO Bentley - 03/25/2023 2:19 PM EDT I continue to get refill/form requests from [facility] for patients Rose Marie supplies. [facility] is no longer following pt. The forms needs sent to PCP for signature. [facility] #[phone] fax [phone] Sharing with intake to call and request they fax to pcp. Sharing with pcp and MTM as FYI. documented in this encounter Plan of Treatment Upcoming Encounters Date Type Specialty Care Team Description 04/01/2023 Office Visit Dermatology Lily Piedra MD [address] [place] [place], [place] [address] 04/03/2023 Office Visit Otolaryngology Gurinder Arias, DO [address] [place] [address] 04/20/2023 Nutrition Services Nutrition Services Dinah Mohamud, FELIPEN [address] [place] [address] 05/27/2023 Office Visit Pharmacy [facility] Erica [address] [place] [address] 06/26/2023 Office Visit Podiatry Kylie Burroughs, DPMarga [address] [facility] [place] [address] 07/13/2023 Office Visit Cardiology Del Díaz Jr., DO 09/03/2023 Office Visit Family Medicine James Maria, DO [address] [place] [address] 09/11/2023 Office Visit Dermatology Lily Piedra MD [address] [place], [place] [address] 02/08/2024 Office Visit Family Medicine James Maria, DO [address] [place] [address] Scheduled Procedures Name Priority Associated Diagnoses Date/Ti [...] Sebastian Spouse Health Care Agent Care Teams Butcher Relationship Specialty Start Date End Date James Maria DO [address] [place] [address] PCP - General Family Medicine 06/07/18 documented as of this encounter
--- OUTSIDE RECORDS SUMMARY | 2023-07-31 19:45 | External Medical Summary | Summary of Care ---
Author Name Unknown Organization [facility] Address [address] [place] [address] Phone [phone] Care Team Providers Care Conveyor Operator Name Role Phone James Maria Primary Care Provider Reason for Visit * Reason Onset Date Comments Referral Requested by Specialist 02/24/2023 Encounter Details Date Type Department Care Team Description 02/24/2023 Telephone Podiatry, [facility] [address] [place] [address] Kylie Burroughs DPM [address] [place] [address] Referral Requested by Specialist Allergies Active Allergy Reactions Severity Noted Date Comments Lisinopril Edema face/lips/tongue High 04/05/2018 documented as of this encounter (statuses as of 02/24/2023) Medications Medication Sig Dispensed Refills Start Date [...] MLIndications:Type 2 diabetes mellitus with polyneuropathy ([facility]),Type 2 diabetes mellitus with hemoglobin A1c goal of less than 8.0% ([facility]) Use up to 4 x a day for insulin dosing E11.9 3 Each 1 09/05/2021 Active metFORMIN HCl ER 500 MG Oral Tablet Extended Release 24 Hour (Glucophage XR)Indications:Type 2 diabetes mellitus with diabetic neuropathy, with long-term current use of insulin ([facility]) Take by mouth 2 Tablets in the morning. 180 Tablet 3 12/25/2021 Active FreeStyle Rose Marie 2 Sensor Test blood sugars four times daily 2 Each 11 12/27/2021 Active FreeStyle Rose Marie 2 [place] Device Test blood sugars four times daily 1 Each 0 12/27/2021 Active Pen [place] 32G X 4 MMIndications:Type 2 diabetes mellitus [...] BEFORE BEDTIME 15 mL 3 02/09/2023 Active documented as of this encounter (statuses as of 02/24/2023) Active Problems Problem Noted Date Hypertensive heart [...] with fat layer exposed 01/09/2022 Atherosclerosis of [place] coronary arter y without angina pectoris 01/09/2022 [...] as of this encounter (statuses as of 02/24/2023) Resolved Problems Problem Noted Date Resolved Date [...] as of this encounter (statuses as of 02/24/2023) Immunizations Name Administration Dates Next Due COVID-19 mRNA, LNP-s, No Pre serve, 2-Dose Series (Moderna) 03/24/2021,02/22/2021 COVID-19, LNP-s, No Preserve , Ministerio-sucrose, Ages 12+ (Pfizer) 02/25/2022 Covid-19, Mrna, Lnp-s, Pf, B ivalent Booster, 30 Mcg, IM, 12 yrs and above ([place]) 11/17/2022 Pneumococcal Conjugate Vacc, 13 Valent (Prevnar) [...] encounter Miscellaneous Notes * Telephone Encounter - Samantha Bailey LPN - 02/24/2023 12:06 PM EDT I believe this was sent to the incorrect pool. * Telephone Encounter - MICHEL Donaldson - 02/24/2023 10:54 AM EDT Due to new Medicare guidelines for Podiatry Routine Footcare & Mycotic Nail visits, we will need documented medical necessity for this patient's upcoming appointment on 03/23/2023. Moving forward, a new referral will need to be placed every 6 months and must include the below information for Medicare to pay for services. Can you please assist with placing a new referral with the below outlined? 1) Can Patient perform routine footcare without assistance? (Y/N) 2)Does patient have a chronic condition? (Y/N) 3) Has patient been seen in the past 6 months? (Y/N) documented in this encounter Plan of Treatment Upcoming Encounters Date Type Specialty Care Team Description 03/23/2023 Office Visit Podiatry Kylie Burroughs, REMEDIOS [address] [place] [place] [address] 04/20/2023 Nutrition Services Nutrition Services Dinah Mohamud, ALFIE [address] [place] [address] 05/27/2023 Office Visit Pharmacy [facility] [address] Erica [address] [place] [address] 07/13/2023 Office Visit Cardiology Del Díaz Jr., DO 09/03/2023 Office Visit Family Medicine James Maria DO [address] [place] [address] 09/11/2023 Office Visit Dermatology Lily Piedra MD [address] [place] [address] 02/08/2024 Office Visit Family Medicine James Maria DO [address] [place] [id number] Scheduled Procedures Name Priority Associated Diagnoses Date/Ti [...] Communication Farhana Sebastian Spouse Health Care Agent [phone] (Mobile) Care Teams Conveyor Operator Relationship Specialty Start Date End Date James Maria DO [address] [place] [address] PCP - General Family Medicine 06/07/18 documented as of this encounter
--- OUTSIDE RECORDS SUMMARY | 2023-07-31 19:45 | External Medical Summary | Summary of Care ---
Author Name Unknown Organization [facility] Address [address] [place] [address] Phone [phone] Care Team Providers Care Chain Repairer Name Role Phone James Maria Primary Care Provider Reason for Visit * Reason Onset Date Comments Referral Requested by Specialist 02/24/2023 Encounter Details Date Type Department Care Team Description 02/24/2023 Telephone Podiatry, [facility] [address] [place] [address] Kylie Burroughs DPM [address] [place] [address] Referral Requested by Specialist Allergies Active Allergy Reactions Severity Noted Date Comments Lisinopril Edema face/lips/tongue High 04/05/2018 documented as of this encounter (statuses as of 02/25/2023) Medications Medication Sig Dispensed Refills Start Date [...] 0.3 MLIndications:Type 2 diabetes mellitus with polyneuropathy ([facility]),Type 2 diabetes mellitus with hemoglobin A1c goal of less than 8.0% ([facility]) Use up to 4 x a day for insulin dosing E11.9 3 Each 1 09/05/2021 Active metFORMIN HCl ER 500 MG Oral Tablet Extended Release 24 Hour (Glucophage XR)Indications:Type 2 diabetes mellitus with diabetic neuropathy, with long-term current use of insulin ([facility]) Take by mouth 2 Tablets in the morning. 180 Tablet 3 12/25/2021 Active FreeStyle Rose Marie 2 Sensor Test blood sugars four times daily 2 Each 11 12/27/2021 Active FreeStyle Rose Marie 2 [place] Device Test blood sugars four times daily 1 Each 0 12/27/2021 Active Pen [place] 32G X 4 MMIndications:Type 2 diabetes mellitus with hemoglobin A1c goal of less than 8.0% ([facility]) Use as directed . Use to [...] hemoglobin A1c goal of less than 8.0% ([facility]) INJECT 15 UNITS UNDER THE SKIN BEFORE BEDTIME 15 mL 3 02/09/2023 Active documented as of this encounter (statuses as of 02/25/2023) Active Problems Problem Noted Date Hypertensive heart [...] with fat layer exposed 01/09/2022 Atherosclerosis of [place] coronary arter y without angina pectoris 01/09/2022 [...] as of this encounter (statuses as of 02/25/2023) Resolved Problems Problem Noted Date Resolved Date [...] as of this encounter (statuses as of 02/25/2023) Immunizations Name Administration Dates Next Due COVID-19 mRNA, LNP-s, No Pre serve, 2-Dose Series (Moderna) 03/24/2021,02/22/2021 COVID-19, LNP-s, No Preserve , Ministerio-sucrose, Ages 12+ (Pfizer) 02/25/2022 Covid-19, Mrna, Lnp-s, Pf, B ivalent Booster, 30 Mcg, IM, 12 yrs and above ([place]) 11/17/2022 Pneumococcal Conjugate Vacc, 13 Valent (Prevnar) [...] as of this encounter Miscellaneous Notes * Addendum Note - Jabari Bowen LPN - 02/25/2023 2:41 PM EDTAddended by: JABARI BOWEN on: 02/25/2023 02:41 PM Modules accepted: Orders * Telephone Encounter - Jabari Bowen LPN - 02/25/2023 2:40 PM EDT Pended referral with 3 questions. Please review sign and then we will fax * Telephone Encounter - MICHEL Hernández - 02/24/2023 12:47 PM EDT FYI pt was seen here 4-4 * Telephone Encounter - Samantha Bailey LPN [...] 03/23/2023 Office Visit Podiatry Kylie Burroughs, REMEDI[facility] [address] [place] [address] [place] [id number] 04/03/2023 Office Visit Otolaryngology Gurinder Arias DO [address] [place] [address] 04/20/2023 Nutrition Services Nutrition Services Dinah Mohamud RDN [address] [place] [address] 05/27/2023 Office Visit Pharmacy [facility] [address] [place] [address] 07/13/2023 Office Visit Cardiology Del Díaz Jr., DO 09/03/2023 Office Visit Family Medicine James Maria, [address] [place] [address] 09/11/2023 Office Visit Dermatology Lily Piedra MD [address] [facility], [place] [address] 02/08/2024 Office Visit Family Medicine James Maria, DO [address] [place] [address] Scheduled Procedures Name Priority Associated Diagnoses Date/Ti [...] with neurological manifestations, not stated as uncontrolled documented in this encounter Advance Directives Healthcare Agents on File Name Relationship Healthcare Agent Relationshi p Communication Farhana Sebastian Spouse Health Care Agent Care Teams Chain Repairer Relationship Specialty Start Date End Date James Maria DO [address] [place] [address] PCP - General Family Medicine 06/07/18 documented as of this encounter
--- OUTSIDE RECORDS SUMMARY | 2023-07-31 19:45 | External Medical Summary | Summary of Care ---
Author Name Unknown Organization [facility] Address [address] [facility] [address] Phone [phone] Care Team Providers Care Technical System Analyst Name Role Phone Yariel Mariavor Sophy Primary Care Provider Reason for Visit * Reason Onset Date Comments Adult Annual Wellness Visit, Initial Visit 02/18 Encounter Details Date Type Department Care Team Description 02/18/2023 Pharmacy Pharmacy, [facility] [address] [facility] [address] [facility] [address] [place] [address] Routine general medical examination at a health care facility* Allergies Active Allergy Reactions Severity Noted Date Comments Lisinopril Edema face/lips/tongue High 04/05/2018 documented as of this encounter (statuses as of 02/18/2023) Medications Medication Sig Dispensed Refills Start Date [...] 0.3 MLIndications:Type 2 diabetes mellitus with polyneuropathy ([facility]),Type 2 diabetes mellitus with hemoglobin A1c goal of less than 8.0% ([facility]) Use up to 4 x a day for insulin dosing E11.9 3 Each 1 09/05/2021 Active metFORMIN HCl ER 500 MG Oral Tablet Extended Release 24 Hour (Glucophage XR)Indications:Type 2 diabetes mellitus with diabetic neuropathy, with long-term current use of insulin ([facility]) Take by mouth 2 Tablets in the morning. 180 Tablet 3 12/25/2021 Active FreeStyle Rose Marie 2 Sensor Test blood sugars four times daily 2 Each 11 12/27/2021 Active FreeStyle Rose Marie 2 [place] Device Test blood sugars four times daily 1 Each 0 12/27/2021 Active Pen Victor 32G X 4 MMIndications:Type 2 diabetes mellitus [...] as of this encounter (statuses as of 02/18/2023) Active Problems Problem Noted Date Hypertensive heart [...] with fat layer exposed 01/09/2022 Atherosclerosis of [place] coronary arter y without angina pectoris 01/09/2022 [...] as of this encounter (statuses as of 02/18/2023) Resolved Problems Problem Noted Date Resolved Date [...] as of this encounter (statuses as of 02/18/2023) Immunizations Name Administration Dates Next Due COVID-19 mRNA, LNP-s, No Pre serve, 2-Dose Series (Moderna) 03/24/2021,02/22/2021 COVID-19, LNP-s, No Preserve , Ministerio-sucrose, Ages 12+ (Pfizer) 02/25/2022 Covid-19, Mrna, Lnp-s, Pf, B ivalent Booster, 30 Mcg, IM, 12 yrs and above ([email or web address]) 11/17/2022 Pneumococcal Conjugate Vacc, 13 Valent (Prevnar) [...] = 0.6 oz pure alcohol) As of 12.19.2006, the last noted alcohol [...] Sign Reading Time Taken Comments Blood Pressure 122/60 02/18/2023 1:55 PM EDT Pulse 57 02/18/2023 1:55 PM EDT Temperature - - Respiratory Rate - - Oxygen Saturation - - Inhaled Oxygen Concentration - - Weight 92.1 kg (203 lb 1.6 oz) 02/18/2023 1:55 P M EDT Height 167.6 cm (5' 6") 02/18/2023 1:55 PM EDT Body Mass Index 32.78 02/18/2023 1:55 PM EDT documented in this encounter Patient Instructions * Patient Instructions* Samina Blunt, [facility] - 02/18/2023 1:56 PM EDT Hi Zabrina Jaz, As your primary care physician, I know that regular visits with my patients who have several chronic conditions can go a long way in helping you stay healthy. Many times, the clinic team and I are in touch with you and/or other care team members between office visits to adjust medications, discuss any changes in your health, and review our care plan to make sure it is still meeting your needs. I am dedicated to helping you take a more active role in your overall care. It is important that there are resources available to you, so I created a personalized plan of care with a Health Calendar for you, which is included on the next page of this letter. Below is a list that summarizes your electronic health record: Health Maintenance Due: Health Maintenance Due Topic Date Due Depression Screening, Annual for Pts 12 and Over 11/21/2020 Current Medication List: (as of 02/18/2023 (in office), Visit date not found (telemedicine) ) Current Outpatient Medications Medication Sig Dispense Refill [...] for insulin dosing E11.9 3 Each 1 metFORMIN HCl ER 500 MG Oral Tablet Extended Release 24 Hour (Glucophage XR) Take by mouth 2 Tablets in the morning. 180 Tablet 3 FreeStyle Rose Marie 2 Sensor Test blood sugars four times daily 2 Each 11 FreeStyle Rose Marie 2 [place] Device Test blood sugars four times daily 1 Each 0 Pen Victor 32G X 4 MM Use as directed [...] bedtime. (Patient not taking: Reported on 02/03/2023) Xllhvyp-Pfvuvs-Rsqyv Pertussis 5-2.5-18.5 LF-MCG/0.5 Suspension Prefilled Syringe (Boostrix) Administer 0.5ml intramuscularly as directed 0.5 mL 0 Lantus SoloStar 100 UNIT/ML Subcutaneous Solution Pen-injector (Insulin Glargine Solostar) INJECT 15 UNITS UNDER THE SKIN BEFORE BEDTIME 15 mL 3 No current facility-administered medications for this visit. Current List of Allergies: (as of 02/18/2023 (in office), Visit date not found (telemedicine) ) Review of patient's allergies indicates: Allergen Reactions Lisinopril Edema face/lips/tongue Most Recent Lab Results: Results for orders placed or performed in visit on 01/27/23 HEMOGLOBIN A1C Result Value Ref Range Hemoglobin A1C 9.2 (H) 4.0 - 5.6 % Estimated Average Glucose 217 (H) <126 mg/dL BASIC METABOLIC PANEL Result Value Ref Range BUN 23 (H) 6 - 20 mg/dL Creatinine 1.2 0.6 - 1.2 mg/dL Estimated Glomerular Filtration Rate 63 >=60 mL/min Sodium 141 135 - 146 mmol/L Potassium 4.0 3.5 - 5.1 mmol/L Chloride 97 (L) 98 - 107 mmol/L CO2 36 (H) 22 - 32 mmol/L Anion Gap 8 7 - 15 mmol/L Glucose 82 70 - 120 mg/dL Calcium 9.5 8.4 - 10.2 mg/dL CBC Result Value Ref Range WBC 9.97 4.00 - 10.80 K/uL RBC 4.83 4.50 - 5.25 M/uL HGB 13.7 (L) 14.0 - 16.8 g/dL HCT 41.7 40.0 - 48.4 % MCV 86.3 82.0 - 99.5 fL MCH 28.4 27.0 - 34.0 pg MCHC 32.9 32.0 - 36.0 g/dL RDW 12.2 11.5 - 15.5 % PLT 268 140 - 400 K/uL MPV 11.2 6.6 - 11.1 fL nRBCs 0 <=0 /100 WBCs ALBUMIN / CREATININE RATIO, URINE Result Value Ref Range Albumin, Random Urine 2.08 mg/dL Creatinine, Random Urine 33 mg/dL Albumin / Creatinine Ratio, Urine 63 (H) <30 mg/g Creat Sincerely, James Maria, DO 02/18/2023 [facility] Calendar (as of 02/18/2023 (in office), Visit date not found (telemedicine) ) Care needs Care needs Last completed Due next A1C blood sugar test 01/27/2023 07/30/2023 Dilated eye exam (by eye doctor or retinal camera) 09/01/2022 09/01/2023 Yearly foot exam 09/01/2022 09/01/2023 Yearly B-12 vitamin test 09/01/2022 09/01/2023 Urine albumin/creatinine test 01/27/2023 01/28/2024 Kidney Function Test 01/27/2023 01/28/2024 Diphtheria, tetanus & pertussis vaccines (3 - Td or Tdap) 02/03/2023 02/03/2033 As you look over the recommended services, be sure to check with your insurance company to determine what's covered. [employer] is a great tool that helps you review your medical record online, including test results, doctor notes and your health summary. You can also schedule appointments with me and other members of your care team, request prescription refills and ask for advice related to your medical conditions at [email or web address]. documented in this encounter Progress Notes * Samina Blunt RPh - 02/18/2023 1:10 PM EDT I had the privilege of seeing Selvin Bereket Sebastian for an Annual Wellness Visit today. Care Gaps and Best Practices were addressed as appropriate I reviewed health maintenance items and preventative health recommendations. All other screenings and interventions are noted below. Adult Annual Wellness Visit: Selvin Sebastian is a 77 year old male who presents for an Adult Annual Wellness Visit. Depression Screening: Did the patient complete the screening questionnaire for Depression? Yes Is the patient's total score for Depression 15 or greater? No, no further intervention needed, unless requested by patient. Did the patient answer positively to the suicide question? No, no further intervention needed, unless requested by patient. In general, compared to other people your age, what would you say that your health is? Good Ht Readings from Last 1 Encounters: 02/18/23 1.676 m (5' 6") Wt Readings from Last 1 Encounters: 02/18/23 92.1 kg (203 lb 1.6 oz) Body Mass Index: BMI Greater than 30 Body mass index is 32.78 kg/m. BP Readings from Last 1 Encounters: 02/18/23 122/60 Medical/Surgical/Family History Reviewed: Yes Past Medical History: Diagnosis Date Allergic rhinitis [...] performed by Agustin Saravia MD at ENDOSCOPY [facility] FOOT/TOE SURGERY NEC 11/14 L foot deformity L-/S-SPINE PARAVERTEBRAL FACET INJ,1 LEVEL 05/03/2020 L-/S-SPINE PARAVERTEBRAL FACET INJ, 1 LEVEL performed by Avtar Merchant, at OR [facility] MASTOID SURGERY REVISION/APICECTOMY age 18 [facility] SHOULDER ARTHROSCOPY SURGERY 01/07 spur removed Family History Problem Relation Age of Onset Diabetes Uncle (Unspecified) Diabetes Uncle (Unspecified) Diabetes Aunt (Unspecified) Diabetes Aunt (Unspecified) Hypertension Mother MVA age 69 Cancer Father lung - age 54 Diabetes Brother Has patient ever had cancer? No Social History Tobacco Use Smoking status: Former Types: Cigarettes Quit date: 11/02/1980 Years since quittin.3 Smokeless tobacco: Never Substance Use Topics Alcohol use: Yes Alcohol/week: 0.0 standard drinks Comment: As of 2.2006, the last noted alcohol intake was 1 ounces. Vaping/E-Cigarette Use Vaping/E-Cigarette Substances Vaping/E-Cigarette Devices Tobacco/Alcohol screening completed today? Yes Hospital Care: Admissions (within the last year): no ER within 30 days: No Does the patient have an Advance Directives/Living Will? No. Does the patient want information? Yes. Information given to patient Last Physical Exam: Last physical exam: 02/03/23 Does patient see primary provider regularly? Yes Does patient see other providers? No Patient Care Team updated? Yes Review of patient's allergies indicates: Allergen Reactions Lisinopril Edema face/lips/tongue Immunization History Administered Date(s) Administered COVID-19 mRNA, LNP-s, No Preserve, 2-Dose Series (Moderna) 02/22/2021, 03/24/2021 COVID-19, LNP-s, No Preserve, Ministerio-sucrose, Ages 12+ (Pfizer) 02/25/2022 Covid-19, Mrna, Lnp-s, Pf, Bivalent Booster, 30 Mcg, IM, 12 yrs and above (Pfizer) 11/17/2022 Pneumococcal Conjugate Vacc, 13 Valent (Prevnar) 12/24/2015 Pneumococcal Polysaccharide PPV23 (Pneumovax) 07/23/2011 Seasonal Influenza Virus Vaccine, Unspecified Formulation 11/01/2008, 08/06/2009, 12/25/2009, 09/10/2010, 07/23/2011, 08/03/2012, 2013, 09/16/2016, 09/10/2017, 10/21/2018, 08/22/2019, 08/03/2020, 08/10/2021 Seasonal Influenza, Quadrivalent Hd (Fluzone Hd) 08/10/2021, 08/05/2022 Seasonal Influenza, Quadrivalent, No Preserve, 6 Mons & Above, IM 09/10/2017, 10/21/2018, 08/03/2020 Seasonal Influenza, Quadrivalent, No Preserve, IM 11/22/2015, 09/16/2016 Seasonal Influenza, Split, IIV3, With Preserve, Inj 11/01/2008, 08/06/2009, 12/25/2009, 09/10/2010, 07/23/2011, 08/03/2012, 2013, 08/15/2014 Seasonal Influenza, Trivalent, Adjuvanted, 65+ yrs 08/22/2019 TD - Tetanus/Diptheria (ADULT) 11/09/2003 TDAP (age 10 and older)(Boostrix) 02/03/2023 TDAP (age 11 and older)(Adacel) 10/21/2011 Varicella Zoster Vaccine (Adult) 08/03/2012 Zoster Vaccine Recombinant (Shingrix) 11/21/2019, 03/13/2020 Current Outpatient Medications Medication Sig Dispense Refill [...] for insulin dosing E11.9 3 Each 1 metFORMIN HCl ER 500 MG Oral Tablet Extended Release 24 Hour (Glucophage XR) Take by mouth 2 Tablets in the morning. 180 Tablet 3 FreeStyle Rose Marie 2 Sensor Test blood sugars four times daily 2 Each 11 FreeStyle Rose Marie 2 [place] Device Test blood sugars four times daily 1 Each 0 Pen Victor 32G X 4 MM Use as directed [...] bedtime. (Patient not taking: Reported on 02/03/2023) Yxqjshq-Xqawix-Fpysh Pertussis 5-2.5-18.5 LF-MCG/0.5 Suspension Prefilled Syringe (Boostrix) Administer 0.5ml intramuscularly as directed 0.5 mL 0 Lantus SoloStar 100 UNIT/ML Subcutaneous Solution Pen-injector (Insulin Glargine Solostar) INJECT 15 UNITS UNDER THE SKIN BEFORE BEDTIME 15 mL 3 No current facility-administered medications for this visit. 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, with fat layer exposed ([facility]) E11.621, L97.512 Atherosclerosis of ho-chunk co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 angina pectoris I25.10 Hoarding behavior F42.3 Paroxysmal atrial fibrillation ([facility]) I48.0 Moderate aortic stenosis I35.0 Overweight (BMI 25.0-29.9) E66.3 Unsteady gait when walking R26.81 Cellulitis of toe of left foot L03.032 Nonrheumatic aortic valve stenosis I35.0 Chronic heart failure with preserved ejection fraction (HCC) I50.32 Hypertensive heart disease with chronic diastolic congestive heart failure (HCC) I11.0, I50.32 Medication Compliance: Patient is able to obtain all of his medications? Yes Patient takes medications as prescribed? Yes Patient manages own medications: Yes Patient uses a pill box? No Dental Exam: No Eye Screening: No Are you having trouble with hearing? Yes Do you use an assistive device to help your hearing? No Exercise Screening: exercises 1-2 times per week Nutrition Assessment: Eats three meals a day Pain Screening: Are you having any pain? No Sleep Screening Tool 'STOP': 1. Do you snore? Yes 2. Do you feel fatigued during the day? No 3. Do you wake up feeling like you haven't slept? No 4. Have you been told you stop breathing at night? No 5. Do you gasp for air or choke while sleeping? No 6. Have you been told you have Sleep Apnea? No 7. Do you have high blood pressure or are on medication(s) to control high blood pressure? Yes SCORE: If you check YES to two or more questions, make a referral for Obstructive Sleep Apnea Patient and Caregiver Support System: Patient lives alone Means of Transportation: Drives. Not a concern. Patient lives in apartment Community Resources: Unkown and Not Applicable Functional Status and ADL Skills: Has patient ever had an amputation? No Functional Assessment: 60- Requires occasional assistance but is able to care for needs Ambulation: Patient ambulates without assistive device. Independent Dressing: Gets clothes and dresses without any assistance: Independent Able to move freely in chair or bed including turning over: Independent Repositioning (bed or chair): Not applicable Transfers: Independent Toileting: Goes to bathroom, uses toilet, arranges clothes and returns without any assistance: Independent Toileting: continent of bladder and continent of bowel Feeding: Self Bathing: Assist; Not Applicable Requires minimal assistance with ADLs. Instrumental ADL's: Shopping: Independent Housekeeping: Moderate Assistance Handling Finances: Independent DME Vendor Name: Not Applicable Fall Risk Assessment: Can the patient demonstrate that he can stand from a sitting position? Yes Has the patient had a fall within the last 6 months? Yes Does the patient have a problem with his gait or balance? Yes Does the patient take 4 or more prescription medicines? Yes Does the patient use sedatives or narcotics? No Fall Risk Factors Present: History of falls within the past 6 months Yes Cause of fall: Patient lost balance. Uses more than 4 medications Balance or gait disturbances Older than age 70 Pbm-Uf-gkg-Go Test: Time began at 1:43. Patient stood from sitting position and walked approximately 10 feet, returned and sat down. Total time for dma-xp-wqs-go test was 15 seconds. Mis-Py-ouu-Go Test completed? Yes Gender Specific Preventative Plan: Health Maintenance Topic Date Due Depression Screening, Annual for Pts 12 and Over 11/21/2020 HgA1C 07/30/2023 DIABETES-EYE EXAM 09/01/2023 DIABETES-FOOT EXAM 09/01/2023 Yearly B-12 09/01/2023 Albumin/Creatinine Ratio 01/28/2024 GFR - Renal Function 01/28/2024 DTaP,Tdap,and Td Vaccines (3 - Td or Tdap) 02/03/2033 Influenza Vaccine (FLU shot) Completed Zoster Vaccines Completed Pneumococcal Vaccine: 65+ Years Completed COVID-19 Vaccine Completed Hepatitis B Aged Out MENINGOCOCCAL (MENACTRA/MENVEO) Aged Out GARDASIL-HPV IMMUNIZATION SERIES Aged Out Follow Up/ Referrals/Handouts: Falls Risk screening - patient at high risk for falls Routine general medical examination at a health care facility (Primary) Follow Up: Return in 1 year (on 02/19/2024) for 12 month Subsequent Adult Wellness Visit. | For: 12 month Subsequent Adult Wellness Visit | Check-out note: 12 month Subsequent Adult Wellness Visit Would patient like to schedule next AWV visit? No Samina Blunt, [facility] AD8 Dementia Screening Interview Person answering questions: patient Remember, "Yes, a change" indicates that there has been a change in the last several years caused by cognitive (thinking and memory) problems 1. Problems with judgement (eg: problems making decisions, bad financial decisions, problems with thinking). No (0) 2. Less interest in hobbies/activities. No (0) 3. Repeats the same things over and over (questions, stories, or statements). No (0) 4. Trouble learning how to use a tool, appliance, or gadget (eg: VCR, computer, microwave, remote control). No (0) 5. Forgets correct month or year. No (0) 6. Trouble handling complicated financial affairs (eg: balancing checkbook, income taxes, paying bills). No (0) 7. Trouble remembering appointments. No (0) 8. Daily problems with thinking and/or memory. No (0) TOTAL AD8: 0 - AD8 Dementia Screening Score The final score is a sum of the number items marked "Yes, A Change". 0 - 1: Normal cognition; 2 or greater: Cognitive impairments is likely to be present - further testing required documented in this encounter Plan of Treatment Upcoming Encounters Date Type Specialty Care Team Description 03/23/2023 Office Visit Podiatry Kylie Burroughs DPM [address] [place] [address] [place] [id number] 04/20/2023 Nutrition Services Nutrition Services Dinah Mohamud RDN [address] [place] [address] 05/27/2023 Office Visit Pharmacy [facility] Erica [address] [place] [address] 07/13/2023 Office Visit Cardiology Del Díaz Jr., DO 09/03/2023 Office Visit Family Medicine James Maria DO [address] [place] [address] 09/11/2023 Office Visit Dermatology Lily Piedra MD [address] [place] [address], [place] [address] 02/08/2024 Office Visit Family Medicine James Maria, [address] [place] [address] Scheduled Procedures Name Priority Associated Diagnoses Date/Ti me COLONOSCOPY FLEXIBLE PROXIMA L DIAGNOSTIC Recall Encounter for screening colonoscopy Health Maintenance Due Date Last Done Comments Depression Screening, Annual for Pts 12 and Over 11/21/2020 11/21/2019 HgA1C 07/30/2023 01/27/2023, 08/04, 05/21/2022, Additional history exists DIABETES-EYE EXAM 09/01/2023 09/01/2022, , 12/15/2019, Additional history exists DIABETES-FOOT EXAM 09/01/2023 09/01/2022, 0 02/28/2021, 10/13/2019, Additional history exists Yearly B-12 09/01/2023 09/01/2022, 11/02, 01/11/2018 Albumin/Creatinine Ratio 01/28/2024 023, 06/05/2022, 03/13/2020, Additional history exists GFR - Renal Function 01/28/2024 01/27/2023, 11/20/2022, 11/14/2022, Additional history exists DTaP,Tdap,and Td Vaccines (3 [...] as of this encounter Visit Diagnoses Diagnosis Routine general medical examination at a health care facility- Primary documented in this encounter Advance Directives Healthcare Agents on File Name Relationship Healthcare Agent Relationshi p Communication Farhana Sebastian Spouse Health Care Agent Care Teams Technical System Analyst Relationship Specialty Start Date End Date James Maria DO [address] [place] [address] PCP - General Family Medicine 06/07/18 documented as of this encounter
--- OUTSIDE RECORDS SUMMARY | 2023-07-31 19:45 | External Medical Summary | Summary of Care ---
Author Name Unknown Organization [facility] Address [address] [place] [address] Phone [phone] Care Team Providers Care Manager Implementation Name Role Phone Yariel Mariavor Sophy Primary Care Provider Reason for Referral * Evaluate & Treat - Unlimited Visits (Within 30 days (routine)) - Authorized Specialty Diagnoses / Procedures Referred By Collin leigh Referred To Contact Podiatry Diagnoses DM type 2 with diabetic peripheral neuropathy (HCC) Kylie Burroughs DPM [address] [place] [address] Referral ID Status Reason Start Date Expiration Date Visits Requested Visits Authorized [id number] Authorized Specialty Services Required 02/25/[phone] Question Answer Referral Priority Within 30 days (routine) Which condition are you referring this patient for? Routine Foot Care Medicare Patient? No Comments 1) Can Patient perform routine footcare without assistance? NO 2)Does patient have a chronic condition? YES 3) Has patient been seen in the past 6 months? YES Reason for Visit * Reason Onset Date Comments Referral Requested by Specialist 02/24/2023 Encounter Details Date Type Department Care Team Description 02/24/2023 Telephone Podiatry, [address] [address] Kylie Burroughs DPM [address] [place] [address] Referral Requested by Specialist Allergies [...] with long-term current use of insulin (HCC) Take by mouth 2 Tablets in the morning. 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 01/09/2022 [...] encounter Miscellaneous Notes * Addendum Note - Kenney Rudd DO - 02/25/2023 2:44 PM EDTAddended by: KENNEY RUDD on: 02/25/2023 02:44 PM Modules accepted: Orders * Addendum Note - Jabari Bowen LPN [...] Description 03/23/2023 Office Visit Podiatry Kylie Burroughs, DPMarga [address] [place] [address] 04/03/2023 Office Visit Otolaryngology Gurinder Arias, DO [address] [place] [address] 04/20/2023 Nutrition Services Nutrition Services Dinah Mohamud, FELIPEN [address] [place] [address] 05/27/2023 Office Visit Pharmacy [facility] Erica [address] [place] [address] 07/13/2023 Office Visit Cardiology Del Díaz Jr., 09/03/2023 Office Visit Family Medicine James Maria, [address] [place] [address] 09/11/2023 Office Visit Dermatology Lily Piedra MD [address] [place] [address], [place] [address] 02/08/2024 Office Visit Family Medicine James Maria, DO [address] [place] [address] Scheduled Procedures Name Priority Associated Diagnoses Date/Ti [...] Agents on File Name Relationship Healthcare Agent [facility] Communication Farhanadiego Sebastian Spouse Health Care Agent Care Teams Manager Implementation Relationship Specialty Start Date End Date James Maria DO [address] [place] [address] PCP - General Family Medicine 06/07/18 documented as of this encounter
--- OUTSIDE RECORDS SUMMARY | 2023-07-31 19:45 | External Medical Summary | Summary of Care ---
Author Name Unknown Organization [facility] Address [address] [place] [address] Phone [phone] Care Team Providers Care Installer Apprentice Name Role Phone Yariel Mariavor Sophy Primary Care Provider Reason for Referral * Evaluate & Treat - Unlimited Visits (Within 30 days (routine)) - Authorized Specialty Diagnoses / Procedures Referred By Collin leigh Referred To Contact Podiatry Diagnoses DM type 2 with diabetic peripheral neuropathy (HCC) Kylie Burroughs DPM [address] [place] [address] Referral ID Status Reason Start Date Expiration Date Visits Requested Visits Authorized [id number] Authorized Specialty Services Required 02/25/2023 999 999 [...] Department Care Team Description 02/24/2023 Telephone Podiatry, [address] [address] Kylie Burroughs DPM [address] [place] [address] Referral Requested by Specialist Allergies [...] 11 12/27/2021 Active FreeStyle Rose Marie 2 [place] Device Test blood sugars four times daily 1 Each 0 12/27/2021 Active Pen [place] 32G X 4 MMIndications:Type 2 diabetes mellitus [...] of less than 8.0% ([facility]) INJECT 15 UNITS UNDER THE SKIN [...] with fat layer exposed 01/09/2022 Atherosclerosis of [place] coronary arter y without angina pectoris 01/09/2022 [...] Office Visit Podiatry Kylie Burroughs, DPMarga [address] [place] [address] 04/03/2023 Office Visit Otolaryngology Gurinder Arais, DO [address] [place] [address] 04/20/2023 Nutrition Services Nutrition Services Dinah Mohamud, FELIPEN [address] [place] [address] 05/27/2023 Office Visit Pharmacy [facility] Erica [address] [place] [address] 07/13/2023 Office Visit Cardiology Del Díaz Jr., 09/03/2023 Office Visit Family Medicine James Maria, [address] [place] [address] 09/11/2023 Office Visit Dermatology Lily Piedra MD [address] [place] [address], [place] [address] 02/08/2024 Office Visit Family Medicine James Maria, DO [address] [place] [address] Scheduled Procedures Name Priority Associated Diagnoses Date/Ti [...] Agents on File Name Relationship Healthcare Agent [facility] Communication Farhanadiego Sebastian Spouse Health Care Agent Care Teams Installer Apprentice Relationship Specialty Start Date End Date James Maria DO [address] [place] [address] PCP - General Family Medicine 06/07/18 documented as of this encounter
--- OUTSIDE RECORDS SUMMARY | 2023-07-31 19:45 | External Medical Summary | Summary of Care ---
Author Name Unknown Organization [facility] Address [address] [place] [address] Phone [phone] Care Team Providers Care Switch Engineer Name Role Phone James Maria Primary Care Provider Reason for Visit * Reason Onset Date Comments TRIAGE 02/23/2023 Encounter Details Date Type Department Care Team Description 02/23/2023 Telephone Otolaryngology [facility] [address] [place] [address] Services, Scheduling [address] [place] [address] TRIAGE Allergies Active Allergy Reactions Severity Noted Date [...] 0.3 MLIndications:Type 2 diabetes mellitus with polyneuropathy ([facility]),Type 2 diabetes mellitus with hemoglobin A1c goal of less than 8.0% ([facility]) Use up to 4 x a day for insulin dosing E11.9 3 Each 1 09/05/2021 Active metFORMIN HCl ER 500 MG Oral Tablet Extended Release 24 Hour (Glucophage XR)Indications:Type 2 diabetes mellitus with diabetic neuropathy, with long-term current use of insulin ([facility]) Take by mouth 2 Tablets in the morning. 180 Tablet 3 12/25/2021 Active FreeStyle Rose Marie 2 Sensor Test blood sugars four times daily 2 Each 11 12/27/2021 Active FreeStyle Rose Marie 2 [place] Device Test blood sugars four times daily 1 Each 0 12/27/2021 Active Pen [place] 32G X 4 MMIndications:Type 2 diabetes mellitus with hemoglobin A1c goal of less than 8.0% ([facility]) Use as directed . Use to inject [...] with fat layer exposed 01/09/2022 Atherosclerosis of [place] coronary arter y without angina pectoris 01/09/2022 [...] Miscellaneous Notes * Telephone Encounter - MICHEL Snyder - 02/24/2023 1:47 PM EDT Patient is scheduled Unique * Telephone Encounter - Jane Pool LPN - 02/24/2023 9:45 AM EDT Next available with audio. There is a separate referral for audio. Can be seen first with Julia for a hearing test also. * Telephone Encounter - MICHEL Andrew - 02/23/2023 4:54 PM EDT Please be Advised of a 3 Day Urgent Referral for tinnitus to be triaged for Audio/ENT Thank You documented in this encounter Plan of Treatment Upcoming Encounters Date Type Specialty Care Team Description 03/23/2023 Office Visit Podiatry Kylie Burroughs, DPM [address] [place] [address] 04/03/2023 Office Visit Otolaryngology Gurinder Arias, DO [address] [place] [address] 04/20/2023 Nutrition Services Nutrition Services Dinah Mohamud, FELIPEN [address] [place] [address] 05/27/2023 Office Visit Pharmacy [facility] Erica [address] [place] [address] 07/13/2023 Office Visit Cardiology Del Díaz Jr., 09/03/2023 Office Visit Family Medicine James Maria, DO [address] [place] [address] 09/11/2023 Office Visit Dermatology Lily Piedra MD [address] [place] [address] 02/08/2024 Office Visit Family Medicine James Maria, DO [address] [place] [address] Scheduled Procedures Name Priority Associated Diagnoses Date/Ti [...] Sebastian Spouse Health Care Agent Care Teams Switch Engineer Relationship Specialty Start Date End Date James Maria DO [address] [place] [address] PCP - General Family Medicine 06/07/18 documented as of this encounter
--- OUTSIDE RECORDS SUMMARY | 2023-07-31 19:45 | External Medical Summary | Summary of Care ---
Author Name Unknown Organization [facility] Address [address] [place] [address] Phone [phone] Care Team Providers Care Special Education Professor Name Role Phone James Maria Primary Care Provider Reason for Visit * Reason Onset Date Comments Referral Requested by Specialist 02/24/2023 Encounter Details Date Type Department Care Team Description 02/24/2023 Telephone Podiatry, [facility] [address] [place] [address] Kylie Burroughs DPM [address] [place] [address] Referral Requested by Specialist Allergies [...] 0.3 MLIndications:Type 2 diabetes mellitus with polyneuropathy ([facility]),Type 2 diabetes mellitus with hemoglobin A1c goal of less than 8.0% ([facility]) Use up to 4 x a day for insulin dosing E11.9 3 Each 1 09/05/2021 Active metFORMIN HCl ER 500 MG Oral Tablet Extended Release 24 Hour (Glucophage XR)Indications:Type 2 diabetes mellitus with diabetic neuropathy, with long-term current use of insulin ([facility]) Take by mouth 2 Tablets in the morning. 180 Tablet 3 12/25/2021 Active FreeStyle Rose Marie 2 Sensor Test blood sugars four times daily 2 Each 11 12/27/2021 Active FreeStyle Rose Marie 2 [place] Device Test blood sugars four times daily 1 Each 0 12/27/2021 Active Pen [place] 32G X 4 MMIndications:Type 2 diabetes mellitus with hemoglobin A1c goal of less than 8.0% ([facility]) Use as directed . Use [...] hemoglobin A1c goal of less than 8.0% ([facility]) INJECT 15 UNITS UNDER THE SKIN [...] 30 Mcg, IM, 12 yrs and above ([facility]) 11/17/2022 Pneumococcal Conjugate Vacc, 13 Valent (Prevnar) [...] Miscellaneous Notes * Telephone Encounter - MICHEL Hernández - [...] Office Visit Podiatry Kylie Burroughs, DPMarga [address] [facility] [place] [address] 04/20/2023 Nutrition Services Nutrition Services Dinah Mohamud, ALFIE [address] [place] [address] 05/27/2023 Office Visit Pharmacy [facility] Erica [address] [place] [address] 07/13/2023 Office Visit Cardiology Del Díaz Jr., DO 09/03/2023 Office Visit Family Medicine James Maria, [address] [place] [address] 09/11/2023 Office Visit Dermatology Lily Piedra MD [address] [place] [address], [place] [address] 02/08/2024 Office Visit Family Medicine James Maria, [address] [place] [address] Scheduled Procedures Name Priority Associated Diagnoses Date/Ti [...] Agents on File Name Relationship [facility] Communication Farhana Sebastian Spouse Health Care Agent Care Teams Special Education Professor Relationship Specialty Start Date End Date James Maria DO [address] [place] [address] PCP - General Family Medicine 06/07/18 documented as of this encounter
--- OUTSIDE RECORDS SUMMARY | 2023-07-31 19:45 | External Medical Summary | Summary of Care ---
Author Name Unknown Organization [facility] Address [address] [place] [address] Phone [phone] Care Team Providers Care Manager Cash Name Role Phone James Maria Primary Care Provider Reason for Visit * Reason Onset Date Comments Referral Requested by Specialist 02/24/2023 Encounter Details Date Type Department Care Team Description 02/24/2023 Telephone Podiatry, [facility] [address] [place] [address] Kylie Burroughs DPM [address] [place] [address] Referral Requested by Specialist Allergies [...] 2 diabetes mellitus with polyneuropathy ([facility]),Type 2 diabetes mellitus with hemoglobin A1c goal of less than 8.0% ([facility]) Use up to 4 x a day for insulin dosing E11.9 3 Each 1 09/05/2021 Active metFORMIN HCl ER 500 MG Oral Tablet Extended Release 24 Hour (Glucophage XR)Indications:Type 2 diabetes mellitus with diabetic neuropathy, with long-term current use of insulin ([facility]) Take by mouth 2 Tablets in the morning. 180 Tablet 3 12/25/2021 Active FreeStyle Rose Marie 2 Sensor Test blood sugars four times daily 2 Each 11 12/27/2021 Active FreeStyle Rose Marie 2 [place] Device Test blood sugars four times daily 1 Each 0 12/27/2021 Active Pen [place] 32G X 4 MMIndications:Type 2 diabetes mellitus with hemoglobin A1c goal of less than 8.0% ([facility]) Use as directed . Use [...] goal of less than 8.0% ([facility]) INJECT 15 UNITS UNDER THE [...] with fat layer exposed 01/09/2022 Atherosclerosis of [place] coronary arter y without angina pectoris [...] 30 Mcg, IM, 12 yrs and above ([facility]) 11/17/2022 Pneumococcal Conjugate Vacc, 13 Valent (Prevnar) [...] Office Visit Podiatry Kylie Burroughs, REMEDIOS [address] [place] [address] 04/20/2023 Nutrition Services Nutrition Services Dinah Mohamud, ALFIE [address] [place] [address] 05/27/2023 Office Visit Pharmacy [facility] Erica [address] [place] [address] 07/13/2023 Office Visit Cardiology Del Díaz Jr., DO 09/03/2023 Office Visit Family Medicine James Maria DO [address] [place] [address] 09/11/2023 Office Visit Dermatology Lily Piedra MD [address] [facility] [place] [address] 02/08/2024 Office Visit Family Medicine James Maria DO [address] [place] [address] Scheduled Procedures Name Priority Associated Diagnoses Date/Ti [...] Communication Farhana Sebastian Spouse Health Care Agent [phone] (Mobile) Care Teams Manager Cash Relationship Specialty Start Date End Date James Maria DO [address] [place] [address] PCP - General Family Medicine 06/07/18 documented as of this encounter
--- OUTSIDE RECORDS SUMMARY | 2023-07-31 19:45 | External Medical Summary | Summary of Care ---
Author Name Unknown Organization [facility] [address] [facility] [address] Phone [phone] Care Team Providers Care Scout Executive Name Role Phone Yariel Mariavor Sophy Primary Care Provider Reason for Visit * Reason Comments Dosage Adjustment In Person (Anticoag Cl inic) Diabetes Follow-Up Encounter Details Date Type Department Care Team Description 02/18/2023 [facility] Visit Pharm[facility], [facility] [address] [facility] [address] Type 2 diabetes mellitus with hemoglobin A1c goal of less than 8.0% ([facility])* Allergies Active Allergy Reactions Severity Noted Date [...] 11 12/27/2021 Active FreeStyle Rose Marie 2 [place] Device Test blood sugars four times daily 1 Each 0 12/27/2021 Active Pen [place] 32G X 4 MMIndications:Type 2 diabetes mellitus [...] with fat layer exposed 01/09/2022 Atherosclerosis of [place] coronary arter y without angina pectoris 01/09/2022 [...] 07/15/2006 8 HTN, goal below 140/90 12/26/2004 01/27/201 0 Overview: Per HTN Taxonomy. Hearing loss [...] 30 Mcg, IM, 12 yrs and above ([facility]) 11/17/2022 Pneumococcal Conjugate Vacc, 13 Valent (Prevnar) [...] this encounter Progress Notes * Samina Blunt, [facility] - 02/18/2023 1:01 PM EDT Images from the original note [...] your blood sugar go below 70 mg/dL? No Hyperglycemia symptoms present: none Recent Labs Units 01/27/23 1101 09/01/22 1442 05/21/22 1649 HEMOGLOBIN A1C - [facility] % 9.2* 9.0* 7.8* Recent Labs Units 01/27/23 1101 11/20/22 1157 11/14/22 1404 ESTIMATED GLOMERULAR FILTRATION RATE - [facility] mL/min 63 59* 55* CREATININE - [facility] mg/dL 1.2 1.3* 1.3* HYPERTENSION: Patient on ACEi/ARB: yes BP Readings from Last 3 Encounters: 02/03/23 116/66 01/06/23 126/70 12/01/22 120/62 Blood pressure at goal: yes HYPERLIPIDEMIA: Patient is taking moderate or high intensity statin: yes HEALTH MAINTENANCE REVIEW: Health Maintenance Due Topic Date Due Depression Screening, Annual for Pts 12 and Over 11/21/2020 ASSESSMENT & PLAN: No diagnosis found. BG Readings - Blood sugars uncontrolled. See BG download from CGM. Medications - Reviewed current regimen, patient is adherent to regimen. Will increase meal time insulin for better after meal coverage. Diet, Exercise, Lifestyle - No significant lifestyle changes since last visit. Discussed with patient. Patient is agreeable to CGM. Patient aware to contact clinic if any hypoglycemia before next visit. MEDICATION CHANGES: yes, see below; preferred pharmacy: [facility] ([facility]) Diabetic Medications: Lantus 20 units QHS Humalog 6 untis with meals-usually just with breakfast Metformin ER 500 mg 2 tabs AM HEALTH MAINTENANCE INTERVENTIONS: Labs: Up to Date Immunizations: Up to Date Foot Exam: Up to Date Eye Exam: Up to Date Annual Wellness Visit: Visit Scheduled for 02/18/23 FOLLOW UP: Return to clinic in 12 weeks 02/18/2023 Samina Blunt RPh Clinical Pharmacist - Midlevel Provider Med[facility] 02/18/2023, 1:01 PM documented in this encounter Plan of Treatment Upcoming Encounters Date Type Specialty Care Team Description 03/23/2023 Office Visit Podiatry Kylie Burroughs DPM [address] [place] [address] 04/20/2023 Nutrition Services Nutrition Services Dinah Mohamud RDN [address] [place] [address] 05/27/2023 Office Visit Pharmacy [facility] Erica [address] [place] [address] 07/13/2023 Office Visit Cardiology Del Díaz Jr., DO 09/03/2023 Office Visit Family Medicine James Maria DO [address] [place] [address] 09/11/2023 Office Visit Dermatology Lily Piedra MD [address] [facility], [place] [address] 02/08/2024 Office Visit Family Medicine James Maria DO [address] [place] [address] Scheduled Procedures Name Priority Associated Diagnoses Date/Ti [...] goal of less than 8.0% (HCC)- Primary documented in this encounter Advance Directives Healthcare Agents on File Name Relationship Healthcare Agent Relationshi p Communication Farhana Sebastian Spouse Health Care Agent Care Teams Scout Executive Relationship Specialty Start Date End Date James Maria DO [address] [place] [address] PCP - General Family Medicine 06/07/18 documented as of this encounter
--- OUTSIDE RECORDS SUMMARY | 2023-07-31 19:45 | External Medical Summary | Summary of Care ---
Author Name Unknown Organization [facility] Address [address] [place] [address] Phone [phone] Care Team Providers Care Quality Control Operator Name Role Phone James Maria Primary Care Provider Reason for Visit * Reason Onset Date Comments Referral Requested by Specialist 02/24/2023 Encounter Details Date Type Department Care Team Description 02/24/2023 Telephone Podiatry, [facility] [address] [place] [address] Kylie Burroughs DPM [address] [place] [address] Referral Requested by Specialist Allergies [...] 0.3 MLIndications:Type 2 diabetes mellitus with polyneuropathy ([facility]),Type 2 diabetes mellitus with hemoglobin A1c goal of less than 8.0% ([facility]) Use up to 4 x a day for insulin dosing E11.9 3 Each 1 09/05/2021 Active metFORMIN HCl ER 500 MG Oral Tablet Extended Release 24 Hour (Glucophage XR)Indications:Type 2 diabetes mellitus with diabetic neuropathy, with long-term current use of insulin ([facility]) Take by mouth 2 Tablets in the morning. 180 Tablet 3 12/25/2021 Active FreeStyle Rose Marie 2 Sensor Test blood sugars four times daily 2 Each 11 12/27/2021 Active FreeStyle Rose Marie 2 [place] Device Test blood sugars four times daily 1 Each 0 12/27/2021 Active Pen [place] 32G X 4 MMIndications:Type 2 diabetes mellitus with hemoglobin A1c goal of less than 8.0% ([facility]) Use as directed . Use to [...] hemoglobin A1c goal of less than 8.0% ([facility]) INJECT 15 UNITS UNDER THE SKIN [...] with fat layer exposed 01/09/2022 Atherosclerosis of [place] coronary arter y without angina pectoris 01/09/2022 [...] 30 Mcg, IM, 12 yrs and above ([facility]) 11/17/2022 Pneumococcal Conjugate Vacc, 13 Valent (Prevnar) [...] Miscellaneous Notes * Telephone Encounter - MICHEL Donaldson - [...] 03/23/2023 Office Visit Podiatry Kylie Burroughs, REMEDIOS [address] [place], [place] [address] [address] 04/20/2023 Nutrition Services Nutrition Services Dinah Mohamud, FELIPEN [address] [place] [address] 05/27/[address] [facility] Erica [address] [place] [address] 07/13/2023 Office Visit Cardiology Del Díaz Jr., 09/03/2023 Office Visit Family Medicine James Maria, [address] [place] [address] 09/11/2023 Office Visit Dermatology Lily Piedra MD [address] [place] [address], [place] [address] 02/08/2024 Office Visit Family Medicine James Maria, [address] [place] [address] Scheduled Procedures Name Priority Associated Diagnoses Date/Ti [...] Sebastian Spouse Health Care Agent Care Teams Quality Control Operator Relationship Specialty Start Date End Date James Maria DO [address] [place] [address] PCP - General Family Medicine 06/07/18 documented as of this encounter
--- OUTSIDE RECORDS SUMMARY | 2023-07-31 19:46 | External Medical Summary | Summary of Care ---
Author Name Unknown Organization [facility] Address [address] [facility] [place] [address] Phone [phone] Care Team Providers Care Mission Analyst Name Role Phone James Maria DO Primary Care Provider Reason for Visit * Reason Onset Date Comments Appointment 09/01/2022 bilateral leg sw elling, skin cracking/open under and in between toes Encounter Details Date Type Department Care Team Description 09/01/2022 Telephone Family Practice [facility] [address] [facility] [place] [address] James Maria DO [address] [facility] [place] [address] Appointment (bilateral leg swelling, skin ... Allergies Active Allergy Reactions Severity Noted Date Comments Lisinopril Edema face/lips/tongue High 04/05/2018 documented as of this encounter (statuses as of 02/16/2023) Medications Medication Sig Dispensed Refills Start Date End Date Status ONETOUCH ULTRA BLUE STRP USE TO CHECK GLUCOSE 4 TIMES DAILY 100 Strip 0 11/13/2016 Active ONETOUCH DELICA LANCETS 33G MISC USE ONE TO CHECK GLUCOSE 4 TIMES DAILY 100 Each 0 11/13/2016 Active Sildenafil Citrate (VIAGRA) 50 MG TabletIndications:I [...] 11 12/27/2021 Active FreeStyle Rose Marie 2 [place] Device Test blood sugars four times daily 1 Each 0 12/27/2021 Active Pen [place] 32G X 4 MMIndications:Type 2 diabetes mellitus with hemoglobin A1c goal of less than 8.0% ([facility]) Use as directed . Use to inject insulin up to 4 times daily. 400 Each 3 01/06/2022 Active Insulin Aspart 100 UNIT/ML Injection Solution 5 Units. Pt takes 5 to 6 units before meals 0 05/16/2022 Active Silver sulfADIAZINE 1 % External Cream (Silvadene) Apply to sores on hands 3 times daily until healed 50 g 3 08/27/2022 Active Eliquis 5 MG Oral TabletIndications:C hronic atrial fibrillation (HCC) Take by mouth 1 Tablet in the morning AND 1 Tablet before bedtime. 180 Tablet 3 12/25/2021 12/29/19 23 Discontinued Metoprolol Tartrate 25 MG Oral Tablet (Lopressor)Indicati ons:Chronic atrial fibrillation (HCC) Take by mouth 1 Tablet in the morning AND 1 Tablet before bedtime. 180 Tablet 3 12/25/2021 01/10/20 23 Discontinued Lantus SoloStar 100 UNIT/ML Subcutaneous Solution Pen-injector (Insulin Glargine)Indication s:Type 2 diabetes mellitus with hemoglobin A1c goal of less than 8.0% (HCC) Inject under the skin 15 Units before bedtime. 15 mL 3 01/06/2022 02/10/20 23 Discontinued NovoLOG FlexPen 100 UNIT/ML Subcutaneous Solution Pen-injector (insulin aspart) Inject under the skin 5 Units three times a day with meals . 15 mL 3 01/08/2022 01/16/20 23 Discontinued Tamsulosin HCl 0.4 MG Oral Capsule (Flomax)Indications :BPH with obstruction/lower urinary tract symptoms TAKE ONE CAPSULE BY MOUTH EVERY MORNING 100 Capsule 2 04/11/2022 01/02/20 23 Discontinued Furosemide 40 MG Oral Tablet (Lasix)Indications: Chronic atrial fibrillation (HCC) Take by mouth 1 Tablet in the morning. 90 Tablet 3 06/05/2022 11/17/19 23 Discontinued Atorvastatin Calcium 40 MG Oral Tablet (Lipitor)Indication s:cholesterol Take by mouth 1 Tablet in the morning. 90 Tablet 1 06/27/2022 01/02/20 23 Discontinued documented as of this encounter (statuses as of 02/16/2023) Active Problems Problem Noted Date Hypertensive heart [...] as of this encounter (statuses as of 02/16/2023) Resolved Problems Problem Noted Date Resolved Date [...] as of this encounter (statuses as of 02/16/2023) Immunizations Name Administration Dates Next Due COVID-19 mRNA, LNP-s, No Pre serve, 2-Dose Series (Moderna) 03/24/2021,02/22/2021 COVID-19, LNP-s, No Preserve , Ministerio-sucrose, Ages 12+ (Pfizer) 02/25/2022 Pneumococcal Conjugate Vacc, 13 Valent (Prevnar) 12/24/2015 [...] t, Adjuvanted, 65+ yrs 08/22/2019 TDAP (age 11 and older)(Adacel) 10/21/2011 Varicella [...] Miscellaneous Notes * Telephone Encounter - MICHEL Ward - 09/02/2022 12:30 PM EDT LM to see about moving Podiatry appt up. * Telephone Encounter - James Maria DO - 09/01/2022 3:05 PM EDT Please send these messages to scheduling first who can work on getting appointments for patients Visit with any available * Telephone Encounter - Leona Penn LPN - 09/01/2022 2:40 PM EDT Patient presented to mobile bus today for DM foot exam. Exam revealed bilateral leg swelling with cracking/opened skin underneath and in between his toes, feet are cool with an odor to them. Patient's states "I don't know if he is taking the Lasix, I think he is." Patient did not have good feeling in feet during foot exam. Patient is scheduled for podiatry appointment on 09/19/2022, however [facility] feels as if the patient should be sooner just to make sure feet do not get infected. Please help schedule appointment for patient if sooner appointment is available. Thank you. documented in this encounter Plan of Treatment Upcoming Encounters Date Type Specialty Care Team Description 02/18/2023 Office Visit Pharmacy [facility] [address] [place] [address] 02/18/2023 Pharmacy Pharmacy [facility] [address] [place] [address] 03/23/2023 Office Visit Podiatry Kylie Burroughs DPM [address] [facility] [place] [address] 04/20/2023 Nutrition Services Nutrition Services Dinah Mohamud RDN [address] [place] [address] 07/13/2023 Office Visit Cardiology Del Díaz Jr., DO [address] [place] [address] 09/03/2023 Office Visit Family Medicine James Maria, [address] [place] [address] 09/11/2023 Office Visit Dermatology Lily Piedra MD [address] [place] [address] 02/08/2024 Office Visit Family Medicine James Maria DO [address] [place] [address] Scheduled Procedures Name Priority Associated Diagnoses Date/Ti [...] Sebastian Spouse Health Care Agent Care Teams Mission Analyst Relationship Specialty Start Date End Date James Maria DO [address] [place] [address] PCP - General Family Medicine 06/07/18 documented as of this encounter
--- OUTSIDE RECORDS SUMMARY | 2023-07-31 19:46 | External Medical Summary | Summary of Care ---
Author Name Unknown Organization [facility] Address [address] [place] [address] Phone [phone] Care Team Providers Care Inspector Chief Name Role Phone Rylan Mariar Sophy Primary Care Provider Reason for Visit * Reason Comments Outpatient Testing Encounter Details Date Type Department Care Team Description 01/27/2023 Laboratory [facility] [place] [address] [place] [address] [place] [address] [place] [address] HTN, goal below 130/80; Paroxysmal atrial fibrillation (HCC); Nonrheumatic aortic valve stenosis Allergies Active Allergy Reactions Severity Noted Date Comments Lisinopril Edema face/lips/tongue High 04/05/2018 documented as of this encounter (statuses as of 01/27/2023) Medications Medication Sig Dispensed Refills Start Date [...] 11 12/27/2021 Active FreeStyle Rose Marie 2 [place] Device Test blood sugars four times daily 1 Each 0 12/27/2021 Active Lantus SoloStar 100 UNIT/ML Subcutaneous Solution Pen-injector (Insulin Glargine)Indications:T ype 2 diabetes mellitus with hemoglobin A1c goal of less than 8.0% (HCC) Inject under the skin 15 Units before bedtime. 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 01/09/2022 [...] as of this encounter (statuses as of 01/27/2023) Resolved Problems Problem Noted Date Resolved Date [...] as of this encounter (statuses as of 01/27/2023) Immunizations Name Administration Dates Next Due COVID-19 mRNA, LNP-s, No Pre serve, 2-Dose Series (Moderna) 03/24/2021,02/22/2021 COVID-19, LNP-s, No Preserve , Ministerio-sucrose, Ages 12+ (Pfizer) 02/25/2022 Covid-19, Mrna, Lnp-s, Pf, B ivalent Booster, 30 Mcg, IM, 12 yrs and above (Pfizer) 11/17/2022 Pneumococcal Conjugate Vacc, 13 Valent (Prevnar) 12/24/2015 Pneumococcal Polysaccharide PPV23 (Pneumovax) 07/23/2011 Seasonal Influenza, Quadriva lent Hd (Fluzone Hd) 08/05/2022,08/10/2021 Seasonal Influenza, Quadriva lent, No Preserve, 6 [place] & Above, IM 08/03/2020,10/21/2018,09/10/2017 Seasonal Influenza, Quadriva lent, No Preserve, IM 09/16/2016,11/22/2015 Seasonal Influenza, Split, I IV3, With Preserve, Inj 08/15/2014,2013,08/03/2012,07/23,09/10/2010,12/25/2009,08/06/2009 ,11/01/2008 Seasonal Influenza, Trivalen t, Adjuvanted, 65+ yrs 08/22/2019 TD - Tetanus/Diptheria (ADULT) 11/09/2003 TDAP (age 11 and older)(Adacel) 10/21/2011 Varicella [...] got money to buy more. Never true 08/21/2022 Within the past 12 months, t he food you bought just didn't last and you didn't have money to get more. Never true 05/15/2022 Sex Assigned at Date Recorded Male 11/21/2019 11:44 AM EST Job Start Date Occupation Industry Not on file Not on file Not on file documented as of this encounter Plan of Treatment Upcoming Encounters Date Type Specialty Care Team Description 02/03/2023 Office Visit Family Medicine James Maria DO [address] [place] [address] 02/18/2023 Office Visit Pharmacy [facility] [address] [facility] [place] [address] 02/18/2023 Pharmacy Pharmacy [facility] [address] [facility] [place] [address] 03/23/2023 Office Visit Podiatry Kylie Burroughs, DP [address] [facility] [place] [address] 04/20/2023 Nutrition Services Nutrition Services Dinah Mohamud RDN [address] [place] [address] 07/13/2023 Office Visit Cardiology Del Díaz Jr., DO [address] [place] [address] 09/11/2023 Office Visit Dermatology Lily Piedra MD [address] [place] [address], [place] [address] Pending Results Name Type Priority Associated Diagnoses Date /Time HEMOGLOBIN A1C Lab Routine HTN, goal below 130/80 01/27/2023 11:01 AM EDT BASIC METABOLIC PANEL Lab Routine HTN, goal below 130/80 01/27/2023 11:01 AM EDT CBC Lab Routine Paroxysmal atrial fibrillation (HCC) Nonrheumatic aortic valve stenosis 01/27/2023 11:01 AM EDT ALBUMIN / CREATININE RATIO, URINE Lab Routine HTN, goal below 130/80 01/27/2023 11:20 AM EDT Scheduled Procedures Name Priority Associated Diagnoses Date/Ti me COLONOSCOPY FLEXIBLE PROXIMA L DIAGNOSTIC Recall Encounter for screening colonoscopy Health Maintenance Due Date Last Done Comments Depression Screening, Annual for Pts 12 and Over 11/21/2020 11/21/2019 DTaP,Tdap,and Td Vaccines (2 - Td or Tdap) 10/21/2021 10/21/2011, 11/09/2003 HgA1C 03/01/2023 09/01/2022, 05/03, 02/27/2021, Additional history exists Albumin/Creatinine Ratio 06/05/2023 022, 03/13/2020, 12/13/2018, Additional history exists DIABETES-EYE EXAM 09/01/2023 09/01/2022, , 12/15/2019, Additional history exists DIABETES-FOOT EXAM 09/01/2023 09/01/2022, 0 02/28/2021, 10/13/2019, Additional history exists Yearly B-12 09/01/2023 09/01/2022, 11/02, 01/11/2018 GFR - Renal Function 11/20/2023 11/20/2022, 11/14/2022, 09/01/2022, Additional history exists Pneumococcal Vaccine: 65+ Years Completed 12/24/2015, 07/23/2011 Zoster Vaccines Completed 03/13/2020, 11/03, 08/03/2012 Influenza Vaccine (FLU shot) Completed 01/2022, 08/10/2021, 08/03/2020, Additional history exists COVID-19 Vaccine Completed 11/17/2022, [...] as of this encounter Visit Diagnoses Diagnosis HTN, goal below 130/80 Unspecified essential hypertension Paroxysmal atrial fibrillation (HCC) Atrial fibrillation Nonrheumatic aortic valve stenosis Aortic valve disorders documented in this encounter Advance Directives Healthcare Agents on File Name Relationship Healthcare Agent Relationshi p Communication Farhana Sebastian Spouse Health Care Agent Care Teams Inspector Chief Relationship Specialty Start Date End Date James Maria DO [address] [place] [address] PCP - General Family Medicine 06/07/18 documented as of this encounter
--- OUTSIDE RECORDS SUMMARY | 2023-07-31 19:46 | External Medical Summary | Summary of Care ---
Author Name Unknown Organization [facility] Address [address] [place] [address] Phone [phone] Care Team Providers Care Credit Negotiator Name Role Phone James Maria DO Primary Care Provider Reason for Visit * Reason Comments Follow Up Patient here for bli sters on his hands. He has been getting new blisters. Antibiotic oral Cipro and gentamicin ointment recently called to pharmacy. Just started. Patient very lethargic today. Encounter Details Date Type Department Care Team Description 01/28/2023 Office Visit Dermatology [facility] [place] [address] [facility] [place] [address] Lily Piedra MD [address] [facility] [place] [address] Bullous disorder, unspecified* Allergies Active Allergy Reactions Severity Noted Date Comments Lisinopril Edema face/lips/tongue High 04/05/2018 documented as of this encounter (statuses as of 01/28/2023) Medications Medication Sig Dispensed Refills Start Date [...] 11 12/27/2021 Active FreeStyle Rose Marie 2 [place] Device Test blood sugars four times daily 1 Each 0 12/27/2021 Active Lantus SoloStar 100 UNIT/ML Subcutaneous Solution Pen-injector (Insulin Glargine)Indications:T ype 2 diabetes mellitus with hemoglobin A1c goal of less than 8.0% (HCC) Inject under the skin 15 Units before bedtime. 15 mL 3 01/06/2022 Active Pen [place] 32G X 4 MMIndications:Type 2 diabetes mellitus [...] WITH MEALS 15 mL 3 01/15/2023 Active Ciprofloxacin HCl 500 MG Oral Tablet (Cipro)Indications:Sec ondary impetiginization 1 tablet twice daily for 5 days 10 Tablet 0 01/28/2023 Active Gentamicin Sulfate 0.1 % External OintmentIndications:Se condary impetiginization Apply to wounds on hands twice daily 15 g 1 01/28/2023 Active documented as of this encounter (statuses as of 01/28/2023) Active Problems Problem Noted Date Hypertensive heart [...] with fat layer exposed 01/09/2022 Atherosclerosis of [place] coronary arter y without angina pectoris 01/09/2022 [...] as of this encounter (statuses as of 01/28/2023) Resolved Problems Problem Noted Date Resolved Date [...] worsening symptoms. Will plan nurse or [facility] provider telemedicine recheck visit one week [...] as of this encounter (statuses as of 01/28/2023) Immunizations Name Administration Dates Next Due COVID-19 [...] Progress Notes * Lily Piedra MD - 01/28/2023 2:41 PM EDT Chief Complaint Patient presents with Follow Up Patient here for blisters on his hands. He has been getting new blisters. Antibiotic oral Cipro andgentamicin ointment recently called to pharmacy. Just started. Patient very lethargic today. History of Present Illness: Selvin Sebastian is a 77 year old male seen today for follow up of bullous lesions. 01/19/2023 (in office), saw Dr. Vuong last week. Had been popping blisters with pins. Culture with few enterobacter. cipro was prescribed but somehow not able to obtain at pharmacy. Got the gentamicin ointment and started using it. Amyloid fat pad biopsy negative biopsy 2021 - Skin, right 3rd dorsal finger: Intraepidermal to subepidermal separation with epidermal degeneration (see comment) Comment: Based on the histologic findings a viral process could be considered but this is a disconnect with the clinical findings. The broad zone of underlying fibrosis suggests prior scarring. Biopsy of a freshblister may be helpful. The dorsal hands appear doughy with possible coalescing papules. Biopsy of one of theseareas may also be helpful. B. Skin, perilesional right 3rd dorsal finger DIF: IgG: negative IgA: negative C3: granular at the dermal epidermal junction Fibrinogen: non-specific dermal staining +/- Controls: Appropriate Comment: The C3 findings in isolation are not specific and not supportive of epidermolysis bullosa acquisita or porphyria cutanea tarda. Clinical History notable for late complications of diabetes Also of note, his reports that his sister also gets blisters on his hands. 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 Also found that the tylenol he uses carries awarning about 'blisters'. REVIEW OF SYSTEMS: SKIN: no other skin symptoms MEDICA TIONS: Current Outpatient Medications Medication Sig [...] 2 Each 11 FreeStyle Rose Marie 2 [place] Device Test blood sugars four times daily 1 Each 0 Lantus SoloStar 100 UNIT/ML Subcutaneous Solution Pen-injector (Insulin Glargine) Inject under the skin 15 Units before bedtime. 15 mL 3 Pen [place] 32G X 4 MM Use as directed [...] A DAY WITH MEALS 15 mL 3 Ciprofloxacin HCl 500 MG Oral Tablet (Cipro) 1 tablet twice daily for 5 days 10 Tablet 0 Gentamicin Sulfate 0.1 % External Ointment Apply to wounds on hands twice daily 15 g 1 No current facility-administered medications for this visit. [place] IES: Lisinopril OBJECTIVE: SKIN: Erosions (bandages) on fingers with intact 1 cm bullae left 3rd finger. Dorsal hands with ecchymoses and solar damage. ASSESS MENT/PLAN: 1. Bullous diabetacorum Amyloid has been ruled out and lack of inflammatory process less likely EBA with negative DIF findings. Advised avoidance of frictional/sheer forces and poking blisters when the do occur may result in infection cipro 500 mg BID resent to pharmacy today is interested in discussing trial off eliquis but would need to cover with alternate anticoagulant - should discuss with pcp. Follow-up: as needed There were no barriers tolearning and no other pain was related to today's visit. The patient and/or person accompanying patient demonstrates understanding of the visit and treatment. Lily Piedra MD 01/28/2023 2:41 PM documented in this encounter Nursing Notes * Kathy Wall Geri, ACID BATH MIXER - 01/28/2023 1:06 PM EDT Patient identified by name and date of . Do you have any concerns about pain management for today's visit? No Living Will or Advance Directive for Health Care as noted on problem list. [facility] is a way you can talk to your provider online through e-mail. Would you like to sign up? I can activate it for you? ALREADY ACTIVE Chief Complaint Patient presents with Follow Up Patient here for blisters on his hands. He has been getting new blisters. Antibiotic oral Cipro andgentamicin ointment recently called to pharmacy. Just started. Patient very lethargic today. documented in this encounter Plan of Treatment Upcoming Encounters Date Type Specialty Care Team Description 02/03/2023 Office Visit Family Medicine James Maria DO [address] [place] [address] 02/18/2023 Office Visit Pharmacy [facility] [address] [facility] [place] [address] 02/18/2023 Pharmacy Pharmacy [facility] [address] [place] [address] 03/23/2023 Office Visit Podiatry Kylie Burroughs DPM [address] [facility] [place] [address] 04/20/2023 Nutrition Services Nutrition Services Dinah Mohamud RDN [address] [place] [address] 07/13/2023 Office Visit Cardiology Del Díaz Jr., DO [address] [place] [address] 09/11/2023 Office Visit Dermatology Lily Piedra MD [address] [place] [address] Scheduled Procedures Name Priority Associated Diagnoses Date/Ti me COLONOSCOPY FLEXIBLE PROXIMA L DIAGNOSTIC Recall Encounter for screening colonoscopy Health Maintenance Due Date Last Done Comments Depression Screening, Annual for Pts 12 and Over 11/21/2020 11/21/2019 DTaP,Tdap,and Td Vaccines (2 - Td or Tdap) 10/21/2021 10/21/2011, 11/09/2003 HgA1C 07/30/2023 01/27/2023, 08/04, 05/21/2022, Additional history exists DIABETES-EYE EXAM 09/01/2023 09/01/2022, , 12/15/2019, Additional history exists DIABETES-FOOT EXAM 09/01/2023 09/01/2022, 0 02/28/2021, 10/13/2019, Additional history exists Yearly B-12 09/01/2023 09/01/2022, 11/02, 01/11/2018 Albumin/Creatinine Ratio 01/28/2024 023, 06/05/2022, 03/13/2020, Additional history exists GFR - Renal Function 01/28/2024 01/27/2023, 11/20/2022, 11/14/2022, Additional history exists Pneumococcal Vaccine: 65+ Years [...] as of this encounter Visit Diagnoses Diagnosis Bullous disorder, unspecified- Primary documented in this encounter Advance Directives Healthcare Agents on File Name Relationship Healthcare Agent Relationshi p Communication Farhana Sebastian Spouse Health Care Agent Care Teams Credit Negotiator Relationship Specialty Start Date End Date James Maria DO [address] [place] [address] PCP - General Family Medicine 06/07/18 documented as of this encounter
--- OUTSIDE RECORDS SUMMARY | 2023-07-31 19:46 | External Medical Summary | Summary of Care ---
Author Name Unknown Organization [facility] Address [address] [place] [address] Phone [phone] Care Team Providers Care [employer] Consultant Name Role Phone Rylan Mariar Sophy Primary Care Provider Reason for Visit * Reason Comments Outpatient Testing Encounter Details Date Type Department Care Team Description 01/27/2023 Laboratory [facility] [place] [address] [place] [address] [place] [address] [place] [address] HTN, goal below 130/80; Paroxysmal [...] 11 12/27/2021 Active FreeStyle Rose Marie 2 [place] Device Test blood sugars four times daily 1 Each 0 12/27/2021 Active Lantus SoloStar 100 UNIT/ML Subcutaneous Solution Pen-injector (Insulin Glargine)Indications:T ype 2 diabetes mellitus with hemoglobin A1c goal of less than 8.0% (HCC) Inject under the skin 15 Units before bedtime. 15 mL 3 01/06/2022 Active Pen [place] 32G X 4 MMIndications:Type 2 diabetes mellitus [...] with fat layer exposed 01/09/2022 Atherosclerosis of [place] coronary arter y without angina pectoris 01/09/2022 [...] James Maria DO [address] [place] [address] 02/18/2023 Office Visit Pharmacy [facility] [address] [facility] [place] [address] 02/18/2023 Pharmacy [facility] [address] [facility] [place] [address] 03/23/2023 Office Visit Podiatry Kylie Burroughs, DP [address] [facility] [place] [address] 04/20/2023 Nutrition Services Nutrition Services Dinah Mohamud RDN [address] [place] [address] 07/13/2023 Office Visit Cardiology Del Díaz Jr., DO [address] [place] [address] 09/11/2023 Office Visit Dermatology Lily Piedra MD [address] [place] [address], [place] [address] Pending Results Name Type Priority Associated Diagnoses [...] Sebastian Spouse Health Care Agent Care Teams [employer] Consultant Relationship Specialty Start Date End Date James Maria DO [address] [place] [address] PCP - General Family Medicine 06/07/18 documented as of this encounter
--- OUTSIDE RECORDS SUMMARY | 2023-07-31 19:46 | External Medical Summary | Summary of Care ---
Author Name Unknown Organization [facility] Address [address] [place] [address] Phone [phone] Care Team Providers Care Director Furniture Name Role Phone James Maria DO Primary Care Provider Reason for Visit * Reason Onset Date Comments Advice 02/06/2023 Encounter Details Date Type Department Care Team Description 02/06/2023 Telephone Family Practice [facility] [place] [address] James Maria DO 132 [facility] [place] [address] Advice Allergies Active Allergy Reactions Severity Noted Date Comments Lisinopril Edema face/lips/tongue High 04/05/2018 documented as of this encounter (statuses as of 02/07/2023) Medications Medication Sig Dispensed Refills Start Date [...] 11 12/27/2021 Active FreeStyle Rose Marie 2 [place] Device Test blood sugars four times daily 1 Each 0 12/27/2021 Active Lantus SoloStar 100 UNIT/ML Subcutaneous Solution Pen-injector (Insulin Glargine)Indications:T ype 2 diabetes mellitus with hemoglobin A1c goal of less than 8.0% ([facility]) Inject under the skin 15 Units before bedtime. 15 mL 3 01/06/2022 Active Pen [place] 32G X 4 MMIndications:Type 2 diabetes mellitus with hemoglobin A1c goal of less than 8.0% ([facility]) Use as directed . Use [...] 1 Capsule before bedtime. 0 11/24/2022 Active documented as of this encounter (statuses as of 02/07/2023) Active Problems Problem Noted Date Hypertensive heart [...] with fat layer exposed 01/09/2022 Atherosclerosis of [place] coronary arter y without angina pectoris 01/09/2022 [...] as of this encounter (statuses as of 02/07/2023) Resolved Problems Problem Noted Date Resolved Date [...] with worsening symptoms. Will plan nurse or [facility] provider telemedicine recheck visit one week [...] as of this encounter (statuses as of 02/07/2023) Immunizations Name Administration Dates Next Due COVID-19 [...] Telephone Encounter - Celina Lau LPN - 02/07/2023 9:13 AM EDT Audiology referral faxed to office as noted below with receipt confirmaiton. My G sent. * Telephone Encounter - Sara Woods LPN - 02/06/2023 12:01 PM EDT calling, she just calling Chanell Darden's office to scheduled audiology appt. They told her the referral has not been received and needs sent. Please fax referral for audiology from 02/03/23 to [phone]. documented in this encounter Plan of Treatment Upcoming Encounters Date Type Specialty Care Team Description 02/18/2023 Office Visit [facility] [address] [place] [address] 02/18/2023 Pharmacy Pharmacy [facility] [address] [place] [address] 03/23/2023 Office Visit [facility] [address] [facility] [address] 04/20/2023 Nutrition Services Nutrition Services Dinah Mohamud, ALFIE [address] [place] [address] 07/13/2023 Office Visit Cardiology Del Díaz Jr., DO [address] [place] [address] 09/03/2023 Office Visit Family Medicine James Maria DO [address] [place] [address] 09/11/2023 Office Visit Dermatology Lily Piedra MD 200 [facility], [place] [address] 02/08/2024 Office Visit Family Medicine James Maria DO [address] [place] [address] Scheduled Procedures Name Priority Associated Diagnoses Date/Ti [...] as of this encounter Visit Diagnoses Diagnosis Mixed conductive and sensorineural hearing loss of right ear with restricted hearing of left ear- Primary documented in this encounter Advance Directives Healthcare Agents on File Name Relationship Healthcare Agent Relationshi p Communication Farhana Sebastian Spouse Health Care Agent [phone] (Mobile) Care Teams Director Furniture Relationship Specialty Start Date End Date James Maria DO [address] [place] [address] PCP - General Family Medicine 06/07/18 documented as of this encounter
--- OUTSIDE RECORDS SUMMARY | 2023-07-31 19:46 | External Medical Summary | Summary of Care ---
Author Name Unknown Organization [facility] Address [address] [place] [address] Phone [phone] Care Team Providers Care Registered Clinical Dietitian Name Role Phone James Maria Primary Care Provider Reason for Visit * Reason Onset Date Comments Med Request 01/28/2023 Encounter Details Date Type Department Care Team Description 01/28/2023 Telephone Dermatology [facility] [place] [facility] [place] [address] [facility] [address] Med Request Allergies Active Allergy Reactions Severity Noted Date [...] 11 12/27/2021 Active FreeStyle Rose Marie 2 [place] Device Test blood sugars four times daily 1 Each 0 12/27/2021 Active Lantus SoloStar 100 UNIT/ML Subcutaneous Solution Pen-injector (Insulin Glargine)Indications: Type 2 diabetes mellitus with hemoglobin A1c goal of less than 8.0% ([facility]) Inject under the skin 15 Units before bedtime. 15 mL 3 01/06/2022 Active Pen [place] 32G X 4 MMIndications:Type 2 diabetes mellitus [...] Active Ciprofloxacin HCl 500 MG Oral Tablet (Cipro)Indications:Se condary impetiginization 1 tablet twice daily for 5 days 10 Tablet 0 01/28/2023 Active Gentamicin Sulfate 0.1 % External OintmentIndications:S econdary impetiginization Apply to wounds on hands twice daily 15 g 1 01/28/2023 Active Gentamicin Sulfate 0.1 % External OintmentIndications:S econdary impetiginization Apply to wounds on hands twice daily 15 g 1 01/21/2023 01/29/20 23 Discontinu ed(Refill) Ciprofloxacin HCl 500 MG Oral Tablet (Cipro)Indications:Se condary impetiginization 1 tablet twice daily for 5 days 10 Tablet 0 01/21/2023 01/29/20 23 Discontinu ed(Refill) documented as of this [...] with fat layer exposed 01/09/2022 Atherosclerosis of [place] coronary arter y without angina pectoris 01/09/2022 [...] with worsening symptoms. Will plan nurse or [facility] provider telemedicine recheck visit one week [...] encounter Miscellaneous Notes * Telephone Encounter - Angelica Vuong MD - 01/28/2023 9:40 AM EDT Yes - it was supposed to be transferred to local pharmacy, not sure what happened. I can make sure it's there now. Pt can wait to fill ilt until visit today, Dr. Cardoza may want to utilize this regimen or wait until bx or cultures are done depending on exam. * Telephone Encounter - MICHEL Cooney - 01/28/2023 9:31 AM EDT Spoke to patient's . They never got the Cipro pills that were ordered by you on January 21. Shestated [facility] send [facility] to [facility] but they never received it. They did get the gentamycin ointment. Can the Cipro be sent to [facility] on ? Or should we wait since patient is being seen this afternoon by Dr. Piedra to possibly biopsy new blisters on fingers? documented in this encounter Plan of Treatment Upcoming Encounters Date Type Specialty Care Team Description 02/03/2023 Office Visit Family Medicine James Maria DO [address] [facility] [place] [address] 02/18/2023 Office Visit Pharmacy [facility] [address] [place] [address] 02/18/2023 Pharmacy Pharmacy [facility] [address] [place] [address] 03/23/2023 Office Visit Podiatry Kylie Burroughs DPM [address] [place] [address] 04/20/2023 Nutrition Services Nutrition Services Dinah Mohamud RDN [address] [place] [address] 07/13/2023 Office Visit Cardiology Del Díaz Jr., DO [address] [place] [address] 09/11/2023 Office Visit Dermatology Lily Piedra MD [address] [place] [address] Scheduled Procedures Name Priority Associated Diagnoses Date/Ti [...] as of this encounter Visit Diagnoses Diagnosis Secondary impetiginization Impetigo documented in this encounter Advance Directives Healthcare Agents on File Name Relationship Healthcare Agent Relationshi p Communication Farhana Sebastian Spouse Health Care Agent Care Teams Registered Clinical Dietitian Relationship Specialty Start Date End Date James Maria, [address] [place] [address] PCP - General Family Medicine 06/07/18 documented as of this encounter
--- OUTSIDE RECORDS SUMMARY | 2023-07-31 19:46 | External Medical Summary | Summary of Care ---
Author Name Unknown Organization [facility] Address [address] [place] [address] Phone [phone] Care Team Providers Care Professional Poker Player Name Role Phone Mejia Maria DO Primary Care Provider Reason for Visit * Reason Comments eRx-Medication Refill Encounter Details Date Type Department Care Team Description 02/09/2023 Refill Family Practice [facility] [address] [place] [address] Mejia Maria DO [address] [place] [address] Type 2 diabetes mellitus with hemoglobin A1c goal of less than 8.0% ([facility]) Allergies Active Allergy Reactions Severity Noted Date Comments Lisinopril Edema face/lips/tongue High 04/05/2018 documented as of this encounter (statuses as of 02/09/2023) Medications Medication Sig Dispensed Refills Start Date [...] 0.3 MLIndications:Type 2 diabetes mellitus with polyneuropathy ([facility]),Type 2 diabetes mellitus with hemoglobin A1c goal of less than 8.0% ([facility]) Use up to 4 x a day for insulin dosing E11.9 3 Each 1 1 Active metFORMIN HCl ER 500 MG Oral Tablet Extended Release 24 Hour (Glucophage XR)Indications:Type 2 diabetes mellitus with diabetic neuropathy, with long-term current use of insulin ([facility]) Take by mouth 2 Tablets in the morning. 180 Tablet 3 2 Active FreeStyle Rose Marie 2 Sensor Test blood sugars four times daily 2 Each 11 2 Active FreeStyle Rose Marie 2 [place] Device Test blood sugars four times daily 1 Each 0 2 Active Pen [place] 32G X 4 MMIndications:Type 2 diabetes mellitus with hemoglobin A1c goal of less than 8.0% ([facility]) Use as directed . Use to inject [...] BEFORE BEDTIME 15 mL 3 3 Active Lantus SoloStar 100 UNIT/ML Subcutaneous Solution Pen-injector (Insulin Glargine)Indications: Type 2 diabetes mellitus with hemoglobin A1c goal of less than 8.0% ([facility]) Inject under the skin 15 Units before bedtime. 15 mL 3 2 02/10/20 23 Discontinued documented as of this encounter (statuses as of 02/09/2023) Active Problems Problem Noted Date Hypertensive heart [...] with fat layer exposed 01/09/2022 Atherosclerosis of [place] coronary arter y without angina pectoris 01/09/2022 [...] as of this encounter (statuses as of 02/09/2023) Resolved Problems Problem Noted Date Resolved Date [...] with worsening symptoms. Will plan nurse or [facility] provider telemedicine recheck visit one week [...] as of this encounter (statuses as of 02/09/2023) Immunizations Name Administration Dates Next Due COVID-19 [...] Telephone Encounter - Mejia Maria DO - 02/09/2023 1:52 PM EDTSigned Prescriptions: Disp Refills Lantus SoloStar 100 UNIT/ML Subcutaneous S*15 mL 3 Sig: INJECT 15 UNITS UNDER THE SKIN BEFORE BEDTIME Authorizing Provider: MEJIA MARIA * Telephone Encounter - Lashaun Call LPN - 02/09/2023 1:38 PM EDTPending Prescriptions: Disp Refills Lantus SoloStar 100 UNIT/ML Subcutaneous S*15 mL 3 Sig: INJECT 15 UNITS UNDER THE SKIN BEFORE BEDTIME * Telephone Encounter - Lashaun Call LPN - 02/09/2023 1:37 PM EDT Pending Prescriptions: Disp Refills Lantus SoloStar 100 UNIT/ML Subcutaneous *15 mL 3 Sig: INJECT 15 UNITS UNDER THE SKIN BEFORE BEDTIME Last Visit: 02/03/2023 (in office), Visit date not found (telemedicine) Next Visit: 09/03/2023 Last date the medication was ordered: 01/06/22 Patient Active Problem List Diagnosis Code Mixed conductive and sensorineural hearing loss of right ear with restricted hearing of left ear H90.A31 Type 2 diabetes mellitus with hemoglobin A1c goal of less than 8.0% ([facility]) E11.9 Dyslipidemia E78.5 HTN, goal below 130/80 I10 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, bilateral M21.961, M21.962 Type 2 diabetes mellitus with polyneuropathy ([facility]) E11.42 Tympanic membrane perforation, 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, 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, with fat layer exposed ([facility]) E11.621, L97.512 Atherosclerosis of [place] co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 angina pectoris I25.10 Hoarding behavior F42.3 Paroxysmal atrial fibrillation ([facility]) I48.0 Moderate aortic stenosis I35.0 Overweight (BMI [...] - [facility] 14.3 (H) 12/13/2018 03:03 PM documented in this encounter Plan of Treatment Upcoming Encounters Date Type Specialty Care Team Description 02/18/2023 [facility] [address] [place] [address] 02/18/2023 Pharmacy Pharmacy [facility] [address] [place] [address] 03/23/2023 Office Visit Podiatry Kylie Burroughs DPM [address] [facility] [place] [address] 04/20/2023 Nutrition Services Nutrition Services Dinah Mohamud, ALFIE [address] [place] [address] 07/13/2023 Office Visit Cardiology Del Díaz Jr., [address] [place] [address] 09/03/2023 Office Visit Family Medicine Mejia Maria DO [address] [place] [address] 09/11/2023 Office Visit Dermatology Lily Piedra MD [address] [place] [address], [place] [address] 02/08/2024 Office Visit Family Medicine Mejia Maria, [address] [place] [address] Scheduled Procedures Name Priority Associated Diagnoses Date/Ti [...] A1c goal of less than 8.0% ([facility]CC) documented in this encounter Advance Directives Healthcare Agents on File Name Relationship Healthcare Agent [facility] p Communication Farhana Sebastian Spouse Health Care Agent Care Teams Professional Poker Player Relationship Specialty Start Date End Date Mejia Maria, [address] [place] [address] PCP - General Family Medicine 06/07/18 documented as of this encounter
--- OUTSIDE RECORDS SUMMARY | 2023-07-31 19:46 | External Medical Summary ---
Author Name Unknown Address Unknown Organization K01:[facility] - [address] [place] [address] Laboratory Report Ordering Provider Test Date Status BENJAMIN BA 01/27/2023 11:20:48 Final Observation Date Value Abnormality Reference (Units ) Status Albumin, Urine 01/27/2023 11:20:48 2.08 (mg/dL) Final Creatinine, Urine 01/27/2023 11:20:48 33 (mg/dL) Final Albumin/Creatinine [Mass Ratio] in Urine 01/27/2023 11:20:48 63 Above high normal <30 (mg/g Creat) Final Performing Location [facility] - [address] [place] [address]
--- OUTSIDE RECORDS SUMMARY | 2023-07-31 19:46 | External Medical Summary | Summary of Care ---
Author Name Unknown Organization [facility] Address [address] [place] [address] Phone [phone] Care Team Providers Care Principal Automation Engineer Name Role Phone James Maria Primary Care Provider Reason for Visit * Reason Onset Date Comments Appointment 01/27/2023 Encounter Details Date Type Department Care Team Description 01/27/2023 Telephone Dermatology [facility] [place] [address] [facility] [place] [address] Lily Piedra MD 200 [facility] [place] [address] Appointment Allergies Active Allergy Reactions Severity Noted [...] ([facility]) Use up to 4 x [...] 11 12/27/2021 Active FreeStyle Rose Marie 2 [place] Device Test blood sugars four times daily 1 Each 0 12/27/2021 Active Lantus SoloStar 100 UNIT/ML Subcutaneous Solution Pen-injector (Insulin Glargine)Indications: Type 2 diabetes mellitus with hemoglobin A1c goal of less than 8.0% ([facility]) Inject under the skin 15 Units before bedtime. 15 mL 3 01/06/2022 Active Pen [place] 32G X 4 MMIndications:Type 2 diabetes mellitus [...] Telephone Encounter - MICHEL Cooney - 01/28/2023 9:30 AM EDT Called patient's and scheduled sooner appt for this afternoon with Dr. Piedra. * Telephone Encounter - MICHEL Cooney - 01/27/2023 2:45 PM EDT [facility] wound clinic called to schedule patient with derm due to him having 2 blisters on his fingers. Offered February [address] Piedra. Wound clinic felt he would probably should be seen sooner. Will schedule pt for February 11 and call pt with sooner appointment when/if we get a cancellation. documented in this encounter Plan of Treatment Upcoming Encounters Date Type Specialty Care Team Description 01/28/2023 Office Visit Dermatology Lily Piedra MD 200 [facility] [place] [address] 02/03/2023 Office Visit Family Medicine James Maria DO [address] [place] [address] 02/18/2023 Office Visit Pharmacy [facility]a [address] [place] [address] 02/18/2023 Pharmacy Pharmacy [facility] [address] [place] [address] 03/23/2023 Office Visit Podiatry Kylie Burroughs, DPM [address] [facility], [place] [address] 04/20/2023 Nutrition Services Nutrition Services Dinah Mohamud, ALFIE [address] [place] [address] 07/13/2023 Office Visit Cardiology Del Díaz Jr., DO [address] [place] [address] 09/11/2023 Office Visit Dermatology Lily Piedra MD [address] [place] [address], [place] [address] Scheduled Procedures Name Priority Associated Diagnoses Date/Ti [...] Agents on File Name Relationship Healthcare Agent [facility] Communication Farhana Sebastian Spouse Health Care Agent Care Teams Principal Automation Engineer Relationship Specialty Start Date End Date James Maria, [address] [place] [address] PCP - General Family Medicine 06/07/18 documented as of this encounter
--- OUTSIDE RECORDS SUMMARY | 2023-07-31 19:46 | External Medical Summary | Summary of Care ---
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 Furnace Operator Name Role Phone James Maria DO Primary Care Provider Reason for Referral * Evaluate & Treat - Unlimited Visits (Within 3 days (urgent)) - Authorized Specialty Diagnoses / Procedures Referred By Collin leigh Referred To Contact Otolaryngology Diagnoses Mixed conductive and sensorineural hearing loss of both ears James Maria DO [address] [place] [address] Referral ID Status Reason Start Date Expiration Date Visits Requested Visits Authorized [id number] Authorized Specialty Services Required 02/03/2023 [id number] Question Answer Referral Priority Within 3 days (urgent) Reason for Referral Ear Conditions Specific Condition: Hearing Loss Is this sudden hearing loss or post chemotherapy hearing loss? No Comments Jose Rafael Darden * Evaluate & Treat - Unlimited Visits (Within 3 days (urgent)) - Authorized Specialty Diagnoses / Procedures Referred By Collin leigh Referred To Contact Audiology Diagnoses Mixed conductive and sensorineural hearing loss of both ears James Maria DO [address] [place] [address] Referral ID Status Reason Start Date Expiration Date Visits Requested Visits Authorized [id number] Authorized Specialty Services Required 02/03/2023 [id number] Question Answer Referral Priority Within 3 days (urgent) Reason for Referral: Hearing Loss Is this sudden hearing loss? No Comments Jose Rafael [place] Joanne Chanell Anthonycandido Reason for Visit * Reason Onset Date Comments Return Visit Pt here for 8 mo return. Pt accompanied by his . Blisters on hands and feet x 3 months. Pt has seen Dermatology for this and [facility]. Immunizations 02/03/2023 Encounter Details Date Type Department Care Team Description 02/03/2023 Office Visit [facility] [address] [place] [address] James Maria DO [address] [place] [address] Type 2 diabetes mellitus with hemoglobin A1c goal of less than 8.0% (HCC)*; Obesity, Class I, BMI 30.0-34.9 (see actual BMI); Dyslipidemia; Diabetic ulcer of toe of right foot associated with type 2 diabetes mellitus, with fat layer exposed (HCC); Paroxysmal atrial fibrillation (HCC); Need for zagphqaidj-qxukrad-xqyv ussis (Tdap) vaccine; HTN, goal below 130/80; Mixed conductive and sensorineural hearing loss of both ears Allergies Active Allergy Reactions Severity Noted Date Comments Lisinopril Edema face/lips/tongue High 04/05/2018 documented as of this encounter (statuses as of 02/03/2023) Medications Medication Sig Dispensed Refills Start Date [...] 11 12/27/2021 Active FreeStyle Rose Marie 2 Galt Device Test blood sugars four times daily 1 Each 0 12/27/2021 Active Lantus SoloStar 100 UNIT/ML Subcutaneous Solution Pen-injector (Insulin Glargine)Indications: Type 2 diabetes mellitus with hemoglobin A1c goal of less than 8.0% (HCC) Inject under the skin 15 Units before bedtime. 15 mL 3 01/06/2022 Active Pen [place] 32G X 4 MMIndications:Type 2 diabetes mellitus [...] 1 Capsule before bedtime. 0 11/24/2022 Active Suxmmog-Vqhrko-Biccp Pertussis 5-2.5-18.5 LF-MCG/0.5 Suspension Prefilled Syringe (Boostrix)Indications :Need for dpjxkdtjnn-lrxsixf-lx rtussis (Tdap) vaccine Inject 0.5 mL into a large muscle once for 1 dose. 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 01/09/2022 [...] as of this encounter (statuses as of 02/03/2023) Resolved Problems Problem Noted Date Resolved Date [...] as of this encounter (statuses as of 02/03/2023) Immunizations Name Administration Dates Next Due COVID-19 [...] Cigarettes Q uit: 11/02/1980 Smokeless Tobacco: Never Tobacco Cessation:Counseling Given: Not [...] Sign Reading Time Taken Comments Blood Pressure 116/66 02/03/2023 1:33 PM EDT Pulse 64 02/03/2023 1:33 PM EDT Temperature 36.8 C (98.3 F) 02/03/2023 1:33 PM ED T Respiratory Rate 16 02/03/2023 1:33 PM EDT Oxygen Saturation 96% 02/03/2023 1:33 PM EDT Inhaled Oxygen Concentration - - Weight 91.7 kg (202 lb 3 oz) 02/03/2023 1:33 PM EDT Height - - Body Mass Index 32.63 12/19/2022 3:09 PM EST documented in this encounter Patient Instructions * Patient Instructions* Celina Seay TONY Lau - 02/03/2023 1:34 PM EDT ~~PATIENT INSTRUCTIONS FOR Td VACCINE~~ Possible side effects of Td vaccine, (tetanus shot), are usually mild and can include: 1. Soreness or redness at injection site 2. Low grade fever 3. Body aches You may use a fever / pain reducing medication as needed for these symptoms. LET YOUR DOCTOR KNOW IMMEDIATELY IF YOU HAVE DIFFICULTY BREATHING OR SWALLOWING, EXPERIENCE ITCHINGOF FEET OR HANDS, HAVE SWELLING OF EYES, FACE OR INSIDE OF NOSE. BMI (Body Mass Index) is the number obtained by dividing a person's weight in kilograms by his or her height in meters squared. BMI is used in determining obesity. BMI is not used to determine a person's actual percentage of body fat, but it is a good tool to mechanical intern weight in terms of what is healthy and unhealthy. It is used to identify adults at increased risk for developing weight related medical problems. Estimated body mass index is 32.63 kg/m as calculated from the following: Height as of 12/19/22: 1.676 m (5' 6"). Weight as of this encounter: 91.7 kg (202 lb 3 oz). Obesity - BMI 30 kg/m2 to 34.9 kg/mg - Obese individuals are at risk for developing: * Heart disease * Stroke * Diabetes * High Blood Pressure * High Cholesterol * GERD (acid reflux) * Sleep Apnea * Osteoarthritis * Fatty Liver Disease * Certain Types of Cancers * Gout * Gall Bladder Disease - Weight loss has been shown to decrease weight related medical problems. - Each additional 5 unit increase in BMI at/above 25 kg/m2 is linked to a 40% increase in from heart and coronary artery disease. - The lifespan of those with a BMI of 30-35 kg/m2 is reduced by two to four years compared to thosewith a normal BMI. - A 12-week weight management text message program is also available. Go to [employer] and seethe message under '[facility]' for more information and enrollment. Patient is Instructed to: Diet: * Limit total fat intake to no more than 40 grams per day (low fat diet). * Increase fruits and vegetables to 5 servings per day, combined. * Limited starches (breads, pasta, rice, potatoes, corn, cereals) to 4 servings per day. Avoid Calorie Containing Drinks: * No fruit juices, regular sodas or sweetened drinks. * Water is preferred - 64 ounces per day unless advised of a fluid restriction. * Diet sodas and drinks permitted. Keep Honest, Accurate Food logs: * www.[employer].Rebelle * www.[employer].Rebelle * If you bite it - write it! Weigh Yourself Weekly: * Morning is best. * Try to do this outside your home. * Have a friend/spouse remind you to weigh yourself, accountability to others helps. Perform 30 minutes of physical activity daily: * Can do all at once or 5 minutes 6 times per day * 8, 000-10,000 steps per day using a pedometer * Make it fun! documented in this encounter Progress Notes * James Maria DO - 02/03/2023 1:42 PM EDT Images from the original note were not included. Assessment and Plan Type 2 diabetes mellitus with hemoglobin A1c goal of less than 8.0% (HCC) Needs to continue to work toward improvement in diet Patient still drinks regular sugar root beer and multiple light beers daily at home Skin lesions likely related to poor glycemic control And yet patient's inability to change his diet makes proper control nearly impossible - HEMOGLOBIN A1C; Future Obesity, Class I, BMI 30.0-34.9 (see actual BMI) Provided education Dyslipidemia - COMPREHENSIVE METABOLIC PANEL; Future - LIPID PANEL WITH DIRECT LDL IF TG IS HIGH; Future Diabetic ulcer of toe of right foot associated with type 2 diabetes mellitus, with fat layer exposed (HCC) Paroxysmal atrial fibrillation (HCC) Need for avfujinveb-ekzvugc-rhejwuexz (Tdap) vaccine - Iotlotj-Lwrgww-Wuavu Pertussis 5-2.5-18.5 LF-MCG/0.5 Suspension Prefilled Syringe (Boostrix); Inject 0.5 mL into a large muscle once for 1 dose. As directed HTN, goal below 130/80 - ALBUMIN / CREATININE RATIO, URINE; Future Mixed conductive and sensorineural hearing loss of both ears - CBC WITH WBC DIFFERENTIAL; Future - AUDIOLOGY REFERRAL OP - OTOLARYNGOLOGY REFERRAL OP History of Present Illness Selvin Sebastian is a 77 year old male that presents for Return Visit (Pt here for 8 mo return. Pt accompanied by his . Blisters on hands and feet x 3 months. Pt has seen Dermatology for this and [facility]. ) and Immunizations Presents in f/u today Exceptionally hard of hearing Would like to see [facility] audiology to see if anything else can be done Admits to poor dietary control Compliant with meds otherwise Ongoing skin blisters/bullae, were biopsied with derm Physical Exam Vitals: 02/03/23 1333 Temp: 36.8 C (98.3 F) Pulse: 64 Resp: 16 SpO2: 96% BP: 116/66 Physical Exam Constitutional: Appearance: Normal appearance. HENT: Head: Normocephalic and atraumatic. Eyes: Extraocular Movements: Extraocular movements intact. Pupils: Pupils are equal, round, and reactive to light. Cardiovascular: Rate and Rhythm: Normal rate. Heart sounds: Murmur heard. Neurological: General: No focal deficit present. Mental Status: He is alert and oriented to person, place, and time. Psychiatric: Mood and Affect: Mood normal. Behavior: Behavior normal. Wrap-Up Follow-up: Return in about 6 months (around 08/05/2023). | Check-out note: 6 month f/u and 12 months with ga Time: Total time today was 42 minutes excluding any time spent in the performance of separately billed services. Patient counseling on weight management given. * Celina aLu LPN - 02/03/2023 1:34 PM EDT documented in this encounter Plan of Treatment Upcoming Encounters Date Type Specialty Care Team Description 02/18/2023 Office Visit Pharmacy [facility] [address] [place] [address] 02/18/2023 Pharmacy Pharmacy [facility] [address] [place] [address] 03/23/2023 Office Visit Podiatry Kylie Burroughs, [facility] [address] [facility] [address] 04/20/2023 Nutrition Services Nutrition Services Dinah Mohamud, RDN [address] [place] [address] 07/13/2023 Office Visit Cardiology Del Díaz Jr. DO [address] [place] [address] 09/03/2023 Office Visit Family Medicine James Maria, [address] [place] [address] 09/11/2023 Office Visit Dermatology Lily Piedra MD [address] [place] [address], [place] [address] 02/08/2024 Office Visit Family Medicine James Maria DO [address] [place] [address] Scheduled Orders Name Type Priority Associated Diagnoses Orde r Schedule CBC WITH WBC DIFFERENTIAL Lab Routine Mixed conductive and sensorineural hearing loss of both ears Expected: 02/03/2023 (Approximate), Expires: 02/04/2024 COMPREHENSIVE METABOLIC PANEL Lab Routine Dyslipidemia Expected: 02/03/2023 (Approximate), Expires: 02/04/2024 HEMOGLOBIN A1C Lab Routine Type 2 diabetes mellitus with hemoglobin A1c goal of less than 8.0% (HCC) Expected: 02/03/2023 (Approximate), Expires: 02/04/2024 ALBUMIN / CREATININE RATIO, URINE Lab Routine HTN, goal below 130/80 Expected: 02/03/2023 (Approximate), Expires: 02/04/2024 LIPID PANEL WITH DIRECT LDL IF TG IS HIGH Lab Routine Dyslipidemia Expected: 02/03/2023, Expires: 02/04/2024 Scheduled Procedures Name Priority Associated Diagnoses Date/Ti me COLONOSCOPY FLEXIBLE PROXIMA L DIAGNOSTIC Recall Encounter for screening colonoscopy Scheduled Referrals Name Type Priority Associated Diagnoses Orde r Schedule AUDIOLOGY REFERRAL OP Referral Within 3 d ays (urgent) Mixed conductive and sensorineural hearing loss of both ears Ordered: 02/03/2023 OTOLARYNGOLOGY REFERRAL OP Referral Within 3 days [...] goal of less than 8.0% (HCC)- Primary Obesity, Class I, BMI 30.0-34.9 (see actual BMI) Obesity, unspecified Dyslipidemia Other and unspecified hyperlipidemia Diabetic ulcer of toe of right foot associated with type 2 diabetes mellitus, with fat layer exposed (HCC) Paroxysmal atrial fibrillation (HCC) Atrial fibrillation Need for gahcdijuxe-xdjutnb-clhlklbsw (Tdap) vaccine Need for prophylactic vaccination with combined xdpuejkuoz-vongnom-ohwyjdhzw (DTP) vaccine HTN, goal below 130/80 Unspecified essential hypertension Mixed conductive and sensorineural hearing loss of both ears Mixed hearing loss, bilateral documented in this encounter Advance Directives Healthcare Agents on File Name Relationship Healthcare Agent [facility] p Communication Farhana Sebastian Spouse Health Care Agent Care Teams Hydrogen Braze Furnace Operator Relationship Specialty Start Date End Date James Maria DO [address] [place] [address] PCP - General Family Medicine 06/07/18 documented as of this encounter
--- OUTSIDE RECORDS SUMMARY | 2023-07-31 19:47 | External Medical Summary ---
Author Name Unknown Address Unknown Organization [id number]:[facility] - [address] [place] [address] Laboratory Report Ordering Provider Test Date Status JULIEN QUIROS 01/27/2023 11:01:11 Final Observation Date Value Abnormality Reference (Units ) Status WBC, Total 01/27/2023 11:01:11 9.97 4.00-10.80 (K/uL) Final RBC 01/27/2023 11:01:11 4.83 4.50-5.25 (M/uL) Final Hemoglobin 01/27/2023 11:01:11 13.7 Below low normal 14.0-16.8 (g/dL) Final HCT 01/27/2023 11:01:11 41.7 40.0-48.4 (%) Final MCV 01/27/2023 11:01:11 86.3 82.0-99.5 (fL) Final MCH 01/27/2023 11:01:11 28.4 27.0-34.0 (pg) Final MCHC 01/27/2023 11:01:11 32.9 32.0-36.0 (g/dL) Final RDW 01/27/2023 11:01:11 12.2 11.5-15.5 (%) Final Platelets 01/27/2023 11:01:11 268 140-400 (K/uL) Final MPV 01/27/2023 11:01:11 11.2 6.6-11.1 (fL) Final Nucleated erythrocytes/100 leukocytes [Ratio] in Blood by Automated count 01/27/2023 11:01:11 0 <=0 (/100 WBCs) Final Performing Location [facility] - [address] [place] [address]
--- OUTSIDE RECORDS SUMMARY | 2023-07-31 19:47 | External Medical Summary | Summary of Care ---
Author Name Unknown Organization [facility] Address [address] [facility] [place] [address] Phone [phone] Care Team Providers Care Cloth Pattern Maker Name Role Phone James Maria Primary Care Provider Reason for Visit * Reason Comments Follow Up 5 week follow up. Ec ho 12/30/22. SOB ongoing. Edema in LE is better and wounds are healed. Denies chest pain, dizziness and palpitations. Encounter Details Date Type Department Care Team Description 01/06/2023 Office Visit Cardiology, [facility] [address] [facility] [place] [id number] Shelley Russell PA-C [address] [facility] [place] [address] Chronic heart failure with preserved ejection fraction (HCC)*; Paroxysmal atrial fibrillation (HCC); Nonrheumatic aortic valve stenosis; HTN, goal below 130/80 Allergies Active Allergy Reactions Severity Noted Date Comments Lisinopril Edema face/lips/tongue High 04/05/2018 documented as of this encounter (statuses as of 01/06/2023) Medications Medication Sig Dispensed Refills Start Date [...] the morning. 180 Tablet 3 12/25/2021 Active Metoprolol Tartrate 25 MG Oral Tablet (Lopressor)Indication s:Chronic atrial fibrillation (HCC) Take by mouth 1 Tablet in the morning AND 1 Tablet before bedtime. 180 Tablet 3 12/25/2021 Active FreeStyle Rose Marie 2 Sensor Test blood sugars four times daily 2 Each 11 12/27/2021 Active FreeStyle Rose Marie 2 [place] Device Test blood sugars four times daily 1 Each 0 12/27/2021 Active Lantus SoloStar 100 UNIT/ML Subcutaneous Solution Pen-injector (Insulin Glargine)Indications: Type 2 diabetes mellitus with hemoglobin A1c goal of less than 8.0% (HCC) Inject under the skin 15 Units before bedtime. 15 mL 3 01/06/2022 Active Pen [place] 32G X 4 MMIndications:Type 2 diabetes mellitus with hemoglobin A1c goal of less than 8.0% (HCC) Use as directed . Use to inject insulin up to 4 times daily. 400 Each 3 01/06/2022 Active NovoLOG FlexPen 100 UNIT/ML Subcutaneous Solution Pen-injector (insulin aspart) Inject under the skin 5 Units three times a day with meals . 15 mL 3 01/08/2022 Active Insulin Aspart 100 UNIT/ML Injection Solution [...] EVERY MORNING 100 Capsule 2 01/01/2023 Active documented as of this encounter (statuses as of 01/06/2023) Active Problems Problem Noted Date Chronic heart failure with preserved eje ction fraction 01/06/2023 Nonrheumatic aortic valve stenosis 11/21 Heart failure 06/05/2022 Cellulitis of toe of left foot 2 Last Assessment & Plan: Wound culture taken Start keflex 500 mg QID x 7 days Wound care clinic tomorrow Unsteady gait when walking 05/27/2022 Last Assessment & Plan: PT/OT eval ordered/faxed Puncture wound of right foot 05/26/2022 Overview: With associated cellulitis. Inpt treatment 05/16-05/18 Last Assessment & Plan: Healing well Going to wound care Overweight (BMI 25.0-29.9) 05/22/2022 Hoarding behavior 03/20/2022 Paroxysmal atrial fibrillation 2 Last Assessment & Plan: Rate controlled Continue metoprolol and eliquis Moderate aortic stenosis 03/20/2022 Diabetic ulcer of toe of rig ht foot associated with type 2 diabetes mellitus, with fat layer exposed 01/09/2022 Atherosclerosis of [place] coronary arter y without angina pectoris 01/09/2022 [...] as of this encounter (statuses as of 01/06/2023) Resolved Problems Problem Noted Date Resolved Date Blistering of skin 04/25/2022 05/22/2022 Last Assessment [...] with worsening symptoms. Will plan nurse or [facility] provider telemedicine recheck visit one week to [...] as of this encounter (statuses as of 01/06/2023) Immunizations Name Administration Dates Next Due COVID-19 [...] Sign Reading Time Taken Comments Blood Pressure 126/70 01/06/2023 1:52 PM EST Pulse 68 01/06/2023 1:52 PM EST Temperature 36.2 C (97.2 F) 01/06/2023 1:52 PM ES T Respiratory Rate 18 01/06/2023 1:52 PM EST Oxygen Saturation - - Inhaled Oxygen Concentration - - Weight 90.7 kg (200 lb) 01/06/2023 1:52 PM EST Height - - Body Mass Index 32.28 12/19/2022 3:09 PM EST documented in this encounter Progress Notes * Shelley Russell PA-C - 01/06/2023 2:05 PM EST 01/06/2023 Cardiology F/U: HPI: Patient is a 77-year-old male here today for close cardiology follow-up visit. Last clinic evaluation approximately 6 weeks ago with the undersigned. Primary marketing communications specialist is Dr. Díaz. Patient is significantly hard of hearing and has difficulty communicating. Most of the history and recent events were obtained from the who then communicates to the patient. In November 2022, furosemide was titrated to 80 mg in the morning and 40 mg in the afternoon due to worsening shortness of breath/edema. Symptoms improved with titration of diuretic.. He had LE woundsand went to wound clinic. Was treated for cellulitis and now improved/healed. Weight is stable from prior visit. He had updated echo demonstrating moderate . Currently he reports ongoing dyspnea, but this is stable. Denies chest pain. No dizziness. No palpitations. He has been out of Eliquis for about 1 week. Should have in the mail today. No chest pain, palpitations, dizziness, syncope or near syncope. No orthopnea, PND, or increased lower extremity edema. No fever, chills, cough, hematochezia, melena, or hemoptysis. Review of Systems: See HPI for pertinent positives. All others negative, other than those noted in HPI. PAST MEDICAL HISTORY: 1. Paroxysmal atrial fibrillation with a CHADS2 VASc score of 4 2. Moderate aortic stenosis 3. Very hard of hearing 4. Diabetes 5. Hypertension Patient Active Problem List Diagnosis Code Mixed conductive and sensorineural hearing loss of right ear with restricted hearing of left ear H90.A31 Type 2 diabetes mellitus with hemoglobin A1c goal of less than 8.0% ([facility]) E11.9 Dyslipidemia E78.5 HTN, goal below 130/80 I10 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, bilateral M21.961, M21.962 Type 2 diabetes mellitus with polyneuropathy ([facility]) E11.42 Tympanic membrane perforation, 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, 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, with fat layer exposed ([facility]) E11.621, L97.512 Atherosclerosis of [place] co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 angina pectoris I25.10 Hoarding behavior F42.3 Paroxysmal atrial fibrillation ([facility]) I48.0 Moderate aortic stenosis I35.0 Overweight (BMI 25.0-29.9) E66.3 Puncture wound of right foot S91.331A Unsteady gait when walking R26.81 Heart failure ([facility]) I50.9 Cellulitis of toe of left foot L03.032 Nonrheumatic aortic valve stenosis I35.0 Allergies as of 01/06/2023 - Reviewed 01/06/2023 Allergen Reaction Noted Lisinopril Edema face/lips/tongue 04/05/2018 Current Outpatient Medications Medication Sig Dispense Refill ONETOUCH ULTRA BLUE STRP USE TO CHECK GLUCOSE 4 TIMES DAILY 100 Strip 0 ONETOUCH DELICA LANCETS 33G MISC USE ONE TO CHECK GLUCOSE 4 TIMES DAILY 100 Each 0 Glucose Blood (ONETOUCH VERIO) STRP Use up [...] Tablets in the morning. 180 Tablet 3 Metoprolol Tartrate 25 MG Oral Tablet (Lopressor) Take by mouth 1 Tablet in the morning AND 1 Tablet before bedtime. 180 Tablet 3 FreeStyle Rose Marie 2 Sensor Test blood sugars four times daily 2 Each 11 FreeStyle Rose Marie 2 [place] Device Test blood sugars four times daily 1 Each 0 Lantus SoloStar 100 UNIT/ML Subcutaneous Solution Pen-injector (Insulin Glargine) Inject under the skin 15 Units before bedtime. 15 mL 3 Pen [place] 32G X 4 MM Use as directed . Use to inject insulin up to 4 times daily. 400 Each 3 NovoLOG FlexPen 100 UNIT/ML Subcutaneous Solution Pen-injector (insulin aspart) Inject under the skin 5 Units three times a day with meals . 15 mL 3 Insulin Aspart 100 UNIT/ML Injection Solution [...] CAPSULE BY MOUTH EVERY MORNING 100 Capsule2 Sildenafil Citrate (VIAGRA) 50 MG Tablet Take 1 Tab by mouth as needed for Erectile Dysfunction. 5 Tab 6 No current facility-administered medications for this visit. PHYSICAL EXAM: Vital Signs: BP 126/70 | Pulse 68 | Temp 36.2 C (97.2 F) | Resp 18 | Wt 90.7 kg (200 lb) | BMI 32.28 kg/m | BSA 2.06 m Wt Readings from Last 3 Encounters: 01/06/23 90.7 kg (200 lb) 12/19/22 91.6 kg (201 lb 14.4 oz) 12/01/22 90.6 kg (199 lb 12.8 oz) General: Awake, alert and oriented x 3. No acute distress. Hard of Hearing HEENT: Normocephalic, atraumatic. Neck: No JVD. No bruit. Cardiovascular: Regular. Positive S-4. Normal S-1 and S-2. No S-3. 3/6 mid to late systolic ejection murmur, greatest at the right sternal border, second intercostal space with radiation to the bilateral carotids. No rubs. Pulmonary: Clear to auscultation bilaterally. No rales, rhonchi, or wheezing. Abdomen: Bowel sounds x 4, soft. No rebound, guarding or tenderness. No organomegaly. Extremities: Compression stockings in place. Soft. No edema. Cardiac studies/labs: Echo report reviewed dated Dec 2022: Interpretation Summary The examination is adequate to evaluate the referral indication. The LV wall thickness is mildly increased (concentric). The left ventricular wall motion is normal. Calculated LV ejection Fraction = 60% (bi-plane method of discs). The left ventricular diastolic function is moderately abnormal (grade II). The aortic valve is severely calcified. Moderate aortic valve stenosis is present. Peak CW velocity=3.3 m/s, Mean gradient 22.1 mm Hg, DI=0.34, GAB=1.1 cm2. Mild tricuspid regurgitation is present. The aortic root and proximal ascending aorta are normal sized. Compared to the report of the prior study performed at [facility] on 11/09/2021, the aortic valve velocities have progressed. EKG performed Nov 2022 Normal sinus rhythm Right bundle branch block Left anterior fascicular block Bifascicular block Voltage criteria for LVH. Compared with prior EKG, PAC's are no longer present. Echocardiogram report reviewed dated November 09, 2021 at [facility]: Study was technically limited. No comparison study available. Ejection fraction 60-65%. Mild concentric LVH. Left atrium is moderately dilated. Aortic valve is moderately calcified. Moderate aortic valvular stenosis. Latest Reference Range & Units 11/14/22 14:04 11/20/22 11:57 BNP, NT-Pro <300 pg/mL 438 (H) Sodium 135 - 146 mmol/L 139 139 Potassium 3.5 - 5.1 mmol/L 4.6 4.3 Chloride 98 - 107 mmol/L 96 (L) 96 (L) CO2 22 - 32 mmol/L 32 35 (H) BUN 6 - 20 mg/dL 24 (H) 22 (H) Creatinine 0.6 - 1.2 mg/dL 1.3 (H) 1.3 (H) Estimated Glomerular Filtration Rate >=60 mL/min 55 (L) 59 (L) Anion Gap 7 - 15 mmol/L 11 8 Glucose 70 - 120 mg/dL 201 (H) 154 (H) Calcium 8.4 - 10.2 mg/dL 9.6 9.6 (H): Data is abnormally high (L): Data is abnormally low IMPRESSION: 77 year old male 1. Chronic HFpEF - improved edema/volume status with titration of furosemide. Appears euvolemic. Continue current furosemide dose. 2. Paroxysmal atrial fibrillation with a CHADS2 VASc score of 4. Currently NSR by exam finding. Continue anticoagulation 3. Moderate aortic stenosis - stable per recent echo. Plan to repeat in 1 year. 4. Very hard of hearing 5. Diabetes 6. Hypertension - controlled RECOMMENDATIONS: Edema improved. Appears euvolemic. Continue furosemide to 80 mg in the morning and 40 mg in the afternoon. Updated labs requested to monitor renal function. Stable moderate per echo. Will monitor. Repeat in 1 year. Continue metoprolol and Eliquis. He was educated on stroke risks when he runs out of [employer]. Short term supply offered for local pharmacy but he declines. Script should be in mail today and he will resume. Low sodium diet encouraged. Fluid restriction of 50-60 ounces per day. CHF tools discussed including daily weights, salt/sodium/fluid restriction, and use of diuretic protocol.. Most of today's visit and instructions were relayed through due to hearing impairment of the patient. All questions answered. I spent a total of 30 minutes on the date of service in preparation, delivery, and documentation ofthe care provided to Selvin Sebastian excluding any time spent in the performance of separately billed services. The patient agrees to the above plan and will call with additional questions or concerns. ER with all emergencies advised. Follow-up: Return in about 6 months (around 07/09/2023). | Check-out note: With Dr. Arjun Russell PAJoanneC Department of Cardiology This chart was completed in part utilizing [employer] Voice Recognition Software. Grammatical errors, random word insertions, prounoun errors, and incomplete sentences are an occasional consequence of this system due to software limitations, ambient noise, and hardware issues. Any formal questions or concerns about the content, text, or information contained within the body of this dictation should be directly addressed to the provider for clarification. documented in this encounter Nursing Notes * Ruben Valencia LPN - 01/06/2023 1:52 PM EST Patient identified by full name and date of Chief Complaint Patient presents with Follow Up 5 week follow up. Echo 12/30/22. SOB ongoing. Edema in LE is better and wounds are healed. Denies chest pain, dizziness and palpitations. Examination Room: 1 Name: Selvin Sebastian Date of : (1945). Reason for Visit: 5 week follow up Interim Hospitalization(s): Denies Problems/Concerns: See chief complaint Chest Pain/SOB: See chief complaint [facility] Discussed: Yes My [employer] [facility] is a way you can talk to your provider online through e-mail. Would you like to sign up? I can activate it for you? ALREADY ACTIVE Patient was instructed to not get up on the exam table until directed and assisted by their provider; patient is to remain seated in the chair/ wheelchair/ exam table for fall prevention and safety reasons. Patient is aware to have assistance to step down off exam table with personnel. Patient voiced full comprehension of instructions. documented in this encounter Plan of Treatment Upcoming Encounters Date Type Specialty Care Team Description 01/27/2023 Laboratory Laboratory [place] [address] [place] [facility] [place] [address] 02/03/2023 Office Visit Family Medicine James Maria DO [address] [place] [address] 02/18/2023 Office Visit Pharmacy Anatoly Vogel [facility] Erica [address] [place] [address] 02/18/2023 Pharmacy Pharmacy [facility] [address] [place] [address] 03/23/2023 Office Visit Podiatry Kylie Burroughs, REMEDIOS [address] [facility] [place] [address] 04/20/2023 Nutrition Services Nutrition Services Dinah Mohamud, ALFIE [address] [place] [address] 07/13/2023 Office Visit Cardiology Del Díaz Jr., DO [address] [place] [address] 09/11/2023 Office Visit Dermatology Lily Piedra MD [address] [place] [address] Scheduled Orders Name Type Priority Associated Diagnoses Orde r Schedule CBC Lab Routine Paroxysmal atrial fibrillation (HCC) Nonrheumatic aortic valve stenosis Expected: 01/06/2023, Expires: 01/07/2024 Scheduled Procedures Name Priority Associated Diagnoses Date/Ti me COLONOSCOPY FLEXIBLE PROXIMA L DIAGNOSTIC Recall Encounter for screening colonoscopy Health Maintenance Due Date Last Done Comments Depression Screening, Annual for Pts 12 and Over 11/21/2020 11/21/2019 DTaP,Tdap,and Td Vaccines (2 - Td or Tdap) 10/21/2021 10/21/2011, 11/09/2003 HgA1C 03/01/2023 09/01/2022, 07, 02/27/2021, Additional history exists Albumin/Creatinine Ratio 06/05/2023 [...] of this encounter Visit Diagnoses Diagnosis Chronic heart failure with preserved ejection fraction (HCC)- Primary Paroxysmal atrial fibrillation (HCC) Atrial fibrillation Nonrheumatic aortic valve stenosis Aortic valve disorders HTN, goal below 130/80 Unspecified essential hypertension documented in this encounter Advance Directives Healthcare Agents on File Name Relationship [facility] Farhana Sebastian Spouse Health Care Agent Care Teams Cloth Pattern Maker Relationship Specialty Start Date End Date James Maria DO [address] [place] [address] PCP - General Family Medicine 06/07/18 documented as of this encounter
--- OUTSIDE RECORDS SUMMARY | 2023-07-31 19:47 | External Medical Summary | Summary of Care ---
Author Name Unknown Organization [facility] Address [address] [place] [address] Phone [phone] Care Team Providers Care Sealer Aircraft Name Role Phone James Maria Primary Care Provider Reason for Visit * Reason Comments Follow Up Patient here for bli sters on his hands, arms, fingers. 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 He declined treatment previously but is now willing. Encounter Details Date Type Department Care Team Description 01/19/2023 Office Visit Dermatology [facility] [address] [facility] [place] [address] Angelica Vuong MD [address] [place] [address] Dermatitis*; Skin bulla; Secondary impetiginization Allergies Active Allergy Reactions Severity Noted Date Comments Lisinopril Edema face/lips/tongue High 04/05/2018 documented as of this encounter (statuses as of 01/21/2023) Medications Medication Sig Dispensed Refills Start Date [...] 11 12/27/2021 Active FreeStyle Rose Marie 2 [place] Device Test blood sugars four times daily 1 Each 0 12/27/2021 Active Lantus SoloStar 100 UNIT/ML Subcutaneous Solution Pen-injector (Insulin Glargine)Indications:T ype 2 diabetes mellitus with hemoglobin A1c goal of less than 8.0% (HCC) Inject under the skin 15 Units before bedtime. 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 Will plan nurse or [facility] provider telemedicine recheck visit one [...] DM type 2, not at goal 04/05/2009 10/ 9 Overview: Modified per Diabetes protocol #14. [...] as of this encounter (statuses as of 01/21/2023) Immunizations Name Administration Dates Next Due COVID-19 [...] Progress Notes * Angelica Vuong MD - 01/19/2023 11:27 AM EDT SUBJECTIVE: History of Present Illness: Selvin Sebastian is a 77 year old male seen today for follow up of hand blisters. Date Last Appointment: 08/27/2022 (in office, Dr. 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 Sometimes these are painful but he also has chronic numbness in hands/feet per . Hx bx and DIF 08/2022 inconclusive R 3rd finger (no evidence of EBA, PCT or BP), amyloid testing 'not interpretable'. Used silvadene with minimal improvement. 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 15 mL 3 Pen [place] 32G X 4 MM Use as directed [...] A DAY WITH MEALS 15 mL 3 No current facility-administered medications for this visit. ALLERG IES: Lisinopril OBJECTIVE: GEN: very poor hearing and slow gait, somnelent, no distress, appears oriented, pleasant and cooperative. SKIN: Detailed exam of abdomen and bilateral hand completed and are normal except: 1. R hand dorsal 3rd and 5th digits - 2 ulcers (each about 1.5 cm) with fibrinous centers and erythematous borders (from prior bullae per pt and ) Reviewed prior photos of leg and hand wounds, background slightly waxy scaly dorsal hand skin 2. Normal abdominal skin ASSESS MENT/PLAN: 1. Bullae and resultant and recalcitrant ulcers, DIF inconclusive, DDx bullous diabetacorum, R/O amyloid as below, orf based on clinical exam but hx not consistent with this. Re-cultured R 3rd digit wound, vaseline, bandages and wound center visits as previously. *there are no fresh bullae today, and they defer another hand bx for now (path mentioned biopsying 'doughy skin'), *will consider punch of dorsal hand in future. 2. R/O amyloid punch biopsy of fat pad - Punch biopsy was advised. Benefits of establish/confirmingdiagnosis and risks of scarring, recurrence, need for further treatment were explained and after verbal consent patient chose to proceed with the procedure. Time out called. Patient identified, procedure verified, site identified and verified. Patient and staff present in agreement. Area prepped with alcohol. Anesthesia with 0.5% lidocaine was administered, and a 4mm punch biopsy was performed. Hemostasis was obtained with gelfoam and pressure. The area was covered with a pressure dressing, andpost-op instructions were given. Patient tolerated the procedure well without complication and willbe contacted with the pathology. Follow-up: will adjust with lab/path results There were no barriers tolearning and no other pain was related to today's visit. The patient and/or person accompanying patient demonstrates understanding of the visit and treatment. Angelica Vuong MD 01/19/2023 11:27 AM documented in this encounter Nursing Notes * Kathy Nevarez LPN - 01/19/2023 11:16 AM EDT Patient identified by name and date of . Do you have any concerns about pain management for today's visit? No Living Will or Advance Directive for Health Care as noted on problem list. [facility] is a way you can talk to your provider online through e-mail. Would you like to sign up? I can activate it for you? ALREADY ACTIVE Chief Complaint Patient presents with Follow Up Patient here for blisters on his hands, arms, fingers. 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 He declined treatment previously but is now willing. documented in this encounter Miscellaneous Notes * Addendum Note - Angelica Vuong MD - 01/21/2023 3:07 PM EDTAddended by: ANGELICA VUONG on: 01/21/2023 03:07 PM Modules accepted: Orders * Result Encounter Note - Angelica Vuong MD - 01/21/2023 3:05 PM EDT Please let pt know there was infection on culture, fat pad biopsy did not show the internal inflammatory disease we talked about (amyloid). We will call in an antibiotic on the surface of the skin and internally to see if we can get the fingers to improve. If there is a new blister, they should call for Dr. Cardoza or me to biopsy documented in this encounter Plan of Treatment Upcoming Encounters Date Type Specialty Care Team Description 01/27/2023 Laboratory Laboratory [place] [address] [facility] [place] [address] 02/03/2023 Office Visit Family Medicine James Maria DO [address] [place] [address] 02/18/2023 Office Visit [facility] Erica [address] [place] [address] 02/18/2023 Pharmacy Pharmacy [facility] Erica [address] [place] [address] 03/23/2023 Office Visit Podiatry Kylie Burroughs DPM [address] [facility] [place] [address] 04/20/2023 Nutrition Services Nutrition Services Dinah Mohamud, ALFIE [address] [place] [address] 07/13/2023 Office Visit Cardiology Del Díaz Jr., DO [address] [place] [address] 09/11/2023 Office Visit Dermatology Lily Piedra MD [address] [place] [address] Scheduled Procedures Name Priority Associated Diagnoses Date/Ti me COLONOSCOPY FLEXIBLE PROXIMA L DIAGNOSTIC Recall Encounter for screening colonoscopy Health Maintenance Due Date Last Done Comments Depression Screening, Annual for Pts 12 and Over 11/21/2020 11/21/2019 DTaP,Tdap,and Td Vaccines (2 - Td or Tdap) 10/21/2021 10/21/2011, 11/09/2003 HgA1C 03/01/2023 09/01/2022, 07/2 , 02/27/2021, Additional history exists Albumin/Creatinine Ratio 06/05/2023 [...] Procedure Name Priority Date/Time Associated Diagnosis Comments SURGICAL PATHOLOGY Routine 01/19/2023 12 :00 PM EDT Dermatitis CULTURE, WOUND, SUPERFICIAL, AEROBIC Routine 01/19/2023 11:41 AM EDT Dermatitis documented in this encounter Results * SURGICAL PATHOLOGY (01/19/2023 12:00 PM EDT) Final Diagnosis A. Skin, abdomen, punch: Negative for amyloid on thioflavin T stain 01/21/2023 2:22 PM EDT [facility] Clinical History See Order Comments 01/21/2023 2:22 PM EDT [facility] Order Comments Normal abdominal skin for punch fat pad bx today (hx recalcitrant ulcers and waxy skin on hands x months, prior bx/DIF of hands inconclusive 08/2022) 01/21/2023 2:22 PM EDT [facility] Gross Description A. Skin. amyloid punch Received in formalin with a container labeled with "Selvin Sebastian", "[id number]" and "1945" and " abdomen". Received is a 0.4 x 0.4 cm skin punch. The skin surface is white, shiny and remarkable for a somewhat centrally located, slightly depressed mckeon area measuring approximately 0.2 x 0.1 cm, extending 0.1 cm from nearest margin. The specimen is wrapped in lens paper and submitted intact in cassette A1. Also received within the same specimen cup are multiple fragments of white to yellow, shiny lobular tissue measuring approximally 0.9 x 0.6 x 0.3 cm in aggregate. The specimen is wrapped in lens paper and entirely submitted in cassette A2. Gross By: RONNA Hopper 01/21/2023 2:22 PM EDT LABORATORY [facility] Sign Out Location Pathologist sign out performed at [facility] ([facility]), [facility] [place] [address]. 01/21/2023 2:22 PM EDT LABORATORY [facility] Photographic images and diagrams represent diaz findings in this case; they are not intended to replace a complete review of the final diagnostic report. The following statement applies to Flow Cytometry, Histology, In situ Hybridization Assays and Molecular Genetics. This test was developed and performed at [facility] and its performance characteristics determined by [employer]. It has not been cleared or approved by the U.S. Food and Drug Administration. The FDA has determined that such clearance or approval is not necessary. This test is used for clinical purposes. It should not be regarded as investigational or for research. Special stains, including histochemical stains, and studies using immunologic and KALINA methodology (where applicable) are performed with appropriate positive and negative control reactions. 01/21/2023 2:22 PM EDT LABORATORY [facility] Tissue Skin structure / Unknown 01/19/2023 12:00 PM EDT 01/19/2023 12:00 PM EDT Comment:Normal abdominal ski n for punch fat pad bx today (hx recalcitrant ulcers and waxy skin on hands x months, prior bx/DIF of hands inconclusive 08/2022) Angelica Vuong MD LAB PATHOLOGY OR DERABLES LABORATORY [facility] [address] [place] [address] * (ABNORMAL) CULTURE, WOUND, SUPERFICIAL, AEROBIC (01/19/2023 11:41 AM EDT) Culture Growth Few Enterobacter cloacae complex(A) MICROBROTH DILUTIONS 01/21/2023 1:46 PM EDT LABORATORY [facility] Comment:This bacterial speci es is known to produce a chromosomal AmpC inducible beta lactamase. Penicillin or cephalosporin use, with the exception of cefepime, may result in resistance. Superficial Wound Structure of right hand / Unknown Non-blood Collection / Unknown 01/19/2023 11:41 AM EDT 01/19/2023 1:52 PM EDT Narrative LABORATORY [facility] - 01/21/2023 1:46 PM EDT Light growth normal ervin Organism Antibiotic Method Susceptibility Enterobacter cloacae complex Cefepime MICROBROTH DILUTIONS <=1: Susceptible Enterobacter cloacae complex Cefoxitin MICROBROTH DILUTIONS >=64: Resistant Enterobacter cloacae complex Ciprofloxacin MICROBROTH DILUTIONS <=0.25: Susceptible Enterobacter cloacae complex Gentamicin MICROBROTH DILUTIONS <=1: Susceptible Enterobacter cloacae complex Piperacillin Tazobactam MICROBROTH DILUTIONS <=4: Susceptible Enterobacter cloacae complex Trimeth/Sulfamethoxazo le MICROBROTH DILUTIONS <=20: Susceptible Angelica Vuong MD LAB MICRO - GENE RAL ORDERABLES LABORATORY [facility] [address] [place] [address] documented in this encounter Visit Diagnoses Diagnosis Dermatitis- Primary Contact dermatitis and other eczema, due to unspecified cause Skin bulla Other specified disorder of skin Secondary impetiginization Impetigo documented in this encounter Advance Directives Healthcare Agents on File Name Relationship Healthcare Agent Relationshi p Communication Farhana Sebastian Spouse Health Care Agent Care Teams Sealer Aircraft Relationship Specialty Start Date End Date James Maria DO [address] [place] [address] PCP - General Family Medicine 06/07/18 documented as of this encounter
--- OUTSIDE RECORDS SUMMARY | 2023-07-31 19:47 | External Medical Summary | Summary of Care ---
Author Name Unknown Organization [facility] [address] [facility] [address] Phone [phone] Care Team Providers Care Pay Station Collector Name Role Phone Mejia Maria DO Primary Care Provider Reason for Visit * Reason Comments eRx-Medication Refill Encounter Details Date Type Department Care Team Description 01/13/2023 Refill Pharmacy, [facility] [address] [place] [address] Mejia Maria DO [address] [facility] [place] [address] Allergies Active Allergy Reactions Severity Noted Date Comments Lisinopril Edema face/lips/tongue High 04/05/2018 documented as of this encounter (statuses as of 01/15/2023) Medications Medication Sig Dispensed Refills Start Date End Date Status ONETOUCH ULTRA BLUE STRP USE TO CHECK GLUCOSE 4 TIMES DAILY 100 Strip 0 7 Active ONETOUCH DELICA LANCETS 33G MISC USE ONE TO CHECK GLUCOSE 4 TIMES DAILY 100 Each 0 7 Active Sildenafil Citrate (VIAGRA) 50 MG TabletIndications:I [...] 11 2 Active FreeStyle Rose Marie 2 [place] Device Test blood sugars four times daily 1 Each 0 2 Active Lantus SoloStar 100 UNIT/ML Subcutaneous Solution Pen-injector (Insulin Glargine)Indication s:Type 2 diabetes mellitus with hemoglobin A1c goal of less than 8.0% ([facility]) Inject under the skin 15 Units before bedtime. 15 mL 3 2 Active Pen [place] 32G X 4 MMIndications:Type 2 diabetes mellitus with hemoglobin A1c goal of less than 8.0% ([facility]) Use as directed . Use to inject [...] 3 3 Active Eliquis 5 MG Oral TabletIndications:a fib Take 1 Tablet by mouth in the morning and 1 Tablet before bedtime. 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 180 Tablet 0 3 Active NovoLOG FlexPen 100 UNIT/ML Subcutaneous Solution Pen-injector (insulin aspart) INJECT UNDER THE SKIN 5 UNITS THREE TIMES A DAY WITH MEALS 15 mL 3 3 Active NovoLOG FlexPen 100 UNIT/ML Subcutaneous Solution Pen-injector (insulin aspart) Inject under the skin 5 Units three times a day with meals . 15 mL 3 2 01/16/20 23 Discontinued documented as of this encounter (statuses as of 01/15/2023) Active Problems Problem Noted Date Chronic heart [...] with fat layer exposed 01/09/2022 Atherosclerosis of [place] coronary arter y without angina pectoris 01/09/2022 [...] as of this encounter (statuses as of 01/15/2023) Resolved Problems Problem Noted Date Resolved Date [...] as of this encounter (statuses as of 01/15/2023) Immunizations Name Administration Dates Next Due COVID-19 mRNA, LNP-s, No Pre serve, 2-Dose Series (Moderna) 03/24/2021,02/22/2021 COVID-19, LNP-s, No Preserve , Ministreio-sucrose, Ages 12+ (Pfizer) 02/25/2022 Covid-19, Mrna, Lnp-s, [...] Telephone Encounter - Mejia Maria DO - 01/15/2023 8:06 AM EDTSigned Prescriptions: Disp Refills NovoLOG FlexPen 100 UNIT/ML Subcutaneous S*15 mL 3 Sig: INJECT UNDER THE SKIN 5 UNITS THREE TIMES A DAY WITH MEALS Authorizing Provider: MEJIA MARIA * Telephone Encounter - MANUEL Main ASSIST - 01/14/2023 8:05 AM EDT Pending Prescriptions: Disp Refills NovoLOG FlexPen 100 UNIT/ML Subcutaneous S*15 mL 3 Sig: Inject under the skin 5 Units three times a day with meals . * Telephone Encounter - Clara Hwang MED ASSIST - 01/14/2023 8:04 AM EDT Did you pend patient's preferred pharmacy and medication before forwarding?yes Pharmacy: [facility] Pending Prescriptions: Disp Refills NovoLOG FlexPen 100 UNIT/ML Subcutaneous *15 mL 3 Sig: INJECT UNDER THE SKIN 5 UNITS THREE TIMES A DAY WITH MEALS Last Visit: 11/17/2022 (in office), Visit date not found (telemedicine) Next Visit: 02/18/2023 If no future appointments scheduled, and last appointment is greater than a year ago, please schedule patient for a follow-up appointment Last date the medication was ordered: 01/08/2022 Is this request for a controlled substance?No Urine Drug Screen:No results found for this or any previous visit. Patient Phone Numbers Labs: Lab Results Component Value Date/Time CREAT 1.3 (H) 11/20/2022 11:57 AM CREAT 1.32 11/08/2021 12:00 AM CREAT 1.1 06/01/2020 03:18 PM POTASSIUM 4.3 11/20/2022 11:57 AM POTASSIUM 4.3 11/08/2021 12:00 AM POTASSIUM 4.5 06/01/2020 03:18 PM TSH 2.020 11/08/2021 12:00 AM TSH 2.18 11/01/2008 10:02 AM LDLCALC 56 09/01/2022 02:42 PM LDLCALC 85 06/04/2016 01:48 PM LDLDIRECT 53 01/11/2018 11:20 AM ALT 19 09/01/2022 02:42 PM ALT 8 (L) 01/11/2018 11:20 AM HGBA1C 9.0 (H) 09/01/2022 02:42 PM HGBA1C 7.4 (H) 03/13/2020 09:26 AM documented in this encounter Plan of Treatment Upcoming Encounters Date Type Specialty Care Team Description 01/19/2023 Office Visit Dermatology Angelica Vuong MD [address] [place] [address] 01/27/2023 Laboratory [facility] [address] [address] 02/03/2023 Office Visit Family Medicine Mejia Maria, DO [address] [place] [address] 02/18/2023 [facility] [address] [place] [address] 02/18/2023 Pharmacy Pharmacy [facility] [address] [place] [address] 03/23/2023 Office Visit Podiatry Kylie Burroughs, DPM [address] [facility] [place] [address] 04/20/2023 Nutrition Services Nutrition Services Dinah Mohamud, RDN [address] [place] [address] 07/13/2023 Office Visit Cardiology Del Díaz Jr., DO [address] [place] [address] 09/11/2023 Office Visit Dermatology Lily Piedra MD [address] [place] [address] Scheduled Procedures Name Priority Associated Diagnoses Date/Ti [...] Agents on File Name Relationship Healthcare Agent [facility] Communication Farhana Sebastian Spouse Health Care Agent [id number] (Mobile) Care Teams Pay Station Collector Relationship Specialty Start Date End Date Mejia Maria DO [address] [place] [address] PCP - General Family Medicine 06/07/18 documented as of this encounter
--- OUTSIDE RECORDS SUMMARY | 2023-07-31 19:47 | External Medical Summary | Summary of Care ---
Author Name Unknown Organization [facility] Address [address] [place] [address] Phone [phone] Care Team Providers Care Hydraulic Dredge Operator Name Role Phone James Maria Primary Care Provider Reason for Visit * Reason Comments eRx-Medication Refill Encounter Details Date Type Department Care Team Description 01/09/2023 Refill [facility] at [facility], [facility] [address] [facility] [place] [address] Wendy Cisneros CRNP [address] [facility] [place] [address] Chronic atrial fibrillation (HCC) Allergies Active Allergy Reactions Severity Noted Date Comments Lisinopril Edema face/lips/tongue High 04/05/2018 documented as of this encounter (statuses as of 01/09/2023) Medications Medication Sig Dispensed Refills Start Date [...] 11 2 Active FreeStyle Rose Marie 2 Gary Device Test blood sugars four times daily 1 Each 0 2 Active Lantus SoloStar 100 UNIT/ML Subcutaneous Solution Pen-injector (Insulin Glargine)Indication s:Type 2 diabetes mellitus with hemoglobin A1c goal of less than 8.0% (HCC) Inject under the skin 15 Units before bedtime. 15 mL 3 2 Active Pen [place] 32G X 4 MMIndications:Type 2 diabetes mellitus with hemoglobin A1c goal of less than 8.0% (HCC) Use as directed . Use to inject insulin up to 4 times daily. 400 Each 3 2 Active NovoLOG FlexPen 100 UNIT/ML Subcutaneous Solution Pen-injector (insulin aspart) Inject under the skin 5 Units three times a day with meals . 15 mL 3 2 Active Insulin Aspart 100 UNIT/ML [...] before bedtime. 180 Tablet 0 3 Active Metoprolol Tartrate 25 MG Oral Tablet (Lopressor)Indicati ons:Chronic atrial fibrillation (HCC) Take by mouth 1 Tablet in the morning AND 1 Tablet before bedtime. 180 Tablet 3 2 01/10/20 23 Discontinued documented as of this encounter (statuses as of 01/09/2023) Active Problems Problem Noted Date Chronic heart [...] with fat layer exposed 01/09/2022 Atherosclerosis of [place] coronary arter y without angina pectoris 01/09/2022 [...] as of this encounter (statuses as of 01/09/2023) Resolved Problems Problem Noted Date Resolved Date [...] as of this encounter (statuses as of 01/09/2023) Immunizations Name Administration Dates Next Due COVID-19 [...] encounter Miscellaneous Notes * Telephone Encounter - Kenney Walton DO - 01/09/2023 5:52 PM ESTSigned Prescriptions: Disp Refills Metoprolol Tartrate 25 MG Oral Tablet (Lop*180 Ta*0 Sig: Take 1 Tablet by mouth in the morning and 1 Tablet before bedtime.Authorizing Provider: KENNEY WALTON-- * Telephone Encounter - BARTOLO Bentley - 01/09/2023 3:57 PM ESTPending Prescriptions: Disp Refills Metoprolol Tartrate 25 MG Oral Tablet [Pha*180 Ta*3 Sig: TAKE ONE TABLET BY MOUTH TWICE A DAY IN THE MORNING AND BEFORE BEDTIME * Telephone Encounter - Pinky Flores LPN - 01/09/2023 1:36 PM ESTPending Prescriptions: Disp Refills Metoprolol Tartrate 25 MG Oral Tablet [Pha*180 Ta*3 Sig: TAKE ONE TABLET BY MOUTH TWICE A DAY IN THE MORNING AND BEFORE BEDTIME * Telephone Encounter - Pinky Flores LPN - 01/09/2023 1:35 PM EST Did you pend patient's preferred pharmacy and medication before forwarding?yes Pharmacy: [facility] Pending Prescriptions: Disp Refills Metoprolol Tartrate 25 MG Oral Tablet (Lo*180 Ta*3 Sig: TAKE ONE TABLET BY MOUTH TWICE A DAY IN THE MORNING AND BEFORE BEDTIME Last Visit: Visit date not found (in office), 05/27/2022 (telemedicine) Next Visit: Visit date not found If no future appointments scheduled, and last appointment is greater than a year ago, please schedule patient for a follow-up appointment Last date the medication was ordered: 12/05/21 Is this request for a controlled substance?No [...] PM HGBA1C 7.4 (H) 03/13/2020 09:26 AM Pinky Flores LPN [facility] 01/09/2023,1:35 PM documented in this encounter Plan of Treatment Upcoming Encounters Date Type Specialty Care Team Description 01/27/2023 Laboratory Laboratory [place] [id number] [place] [facility] [place] [address] 02/03/2023 Office Visit Family Medicine James Maria DO [address] [place] [address] 02/18/2023 Office Visit Pharmacy [facility] [address] [place] [address] 02/18/2023 Pharmacy [facility] [address] [facility] [address] 03/23/2023 Office Visit Podiatry Kylie Burroughs DPM [address] [place] [address] [place] [phone] 04/20/2023 Nutrition Services Nutrition Services Dinah Mohamud, FELIPEN [address] [place] [address] 07/13/2023 Office Visit Cardiology Del Díaz Jr., DO [address] [place] [address] 09/11/2023 Office Visit Dermatology Lily Piedra MD [address] [facility], [place] [address] Scheduled Procedures Name Priority Associated Diagnoses Date/Ti [...] Agents on File Name Relationship Healthcare Agent [facility] Communication Farhana Sebastian Spouse Health Care Agent Care Teams Hydraulic Dredge Operator Relationship Specialty Start Date End Date James Maria DO [address] [place] [address] PCP - General Family Medicine 06/07/18 documented as of this encounter
--- OUTSIDE RECORDS SUMMARY | 2023-07-31 19:47 | External Medical Summary | Summary of Care ---
Author Name Unknown Organization [facility] Address [address] [place] [facility] [place] [address] Phone [phone] Care Team Providers Care Equity Manager Name Role Phone James Maria Primary Care Provider Reason for Visit * Reason Onset Date Comments Test Results 11/25/2022 Encounter Details Date Type Department Care Team Description 11/25/2022 Telephone Cardiology, [facility] [address] [place] [id number] Shelley Russell PA-C [address] [employer] [place] [address] Test Results Allergies Active Allergy Reactions Severity Noted Date Comments Lisinopril Edema face/lips/tongue High 04/05/2018 documented as of this encounter (statuses as of 01/19/2023) Medications Medication Sig Dispensed Refills Start Date [...] 11 2 Active FreeStyle Rose Marie 2 [place] Device Test blood sugars four times daily 1 Each 0 2 Active Lantus SoloStar 100 UNIT/ML Subcutaneous Solution Pen-injector (Insulin Glargine)Indication s:Type 2 diabetes mellitus with hemoglobin A1c goal of less than 8.0% (HCC) Inject under the skin 15 Units before bedtime. 15 mL 3 2 Active Pen [place] 32G X 4 MMIndications:Type 2 diabetes mellitus [...] 3 3 Active Eliquis 5 MG Oral TabletIndications:C hronic atrial fibrillation (HCC) Take by mouth 1 Tablet in the morning AND 1 Tablet before bedtime. 180 Tablet 3 2 12/29/19 23 Discontinued Metoprolol Tartrate 25 MG Oral Tablet (Lopressor)Indicati ons:Chronic atrial fibrillation (HCC) Take by mouth 1 Tablet in the morning AND 1 Tablet before bedtime. 180 Tablet 3 2 01/10/20 23 Discontinued NovoLOG FlexPen 100 UNIT/ML Subcutaneous Solution Pen-injector (insulin aspart) Inject under the skin 5 Units three times a day with meals . 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 Will await reply * Telephone Encounter - Shelley Russell PA-C - 11/26/2022 12:36 PM EST Increase furosemide to 80 mg in AM and 80 mg in PM. Repeat BMP in 1 week. Daily weight encouraged - record readings. Low sodium diet encouraged. Fluid restriction of about 50-60 ounces per day. Continue with wound clinic and leg wraps. * Telephone Encounter - Flavia Houston RN - 11/25/2022 3:08 PM EST Called, spoke with patient's spouse Farhana. Farhana reports evaluated at wound clinic today 11/25/2022. Wraps placed on legs; patient returns to wound clinic . Not noting much improvement in swelling prior to today with increase in diuretic. Patient and spouse forgot to weigh. No weight taken at wound clinic per spouse either. Daily weight education given to spouse, encouraged to start tomorrow. Aware to keep follow up on 12/01/22. * Telephone Encounter - Flavia Houston RN - 11/25/2022 3:03 PM EST ----- Message from Shelley Russell PA-C sent at 11/21/2022 11:54 AM EST ----- Stable labs and renal function. See how patient's edema is doing since increasing furosemide to 80 mg in AM and 40 mg in PM. Any improvement? Is weight down at all? How many lbs? Did he go to wound clinic this week as scheduled? Based on response and improvement, will make further recommendations regarding ongoing diuretic dose. documented in this encounter Plan of Treatment Upcoming Encounters Date Type Specialty Care Team Description 01/27/2023 Laboratory Laboratory [facility] [address] [place] [facility] [place] [address] 02/03/2023 Office Visit Family Medicine James Maria DO [address] [facility] [place] [address] 02/18/2023 Office Visit Pharmacy [facility] [address] [facility] [address] 02/18/2023 Pharmacy [facility] [address] [facility] [address] 03/23/2023 Office Visit Podiatry Kylie Burroughs DPM [address] [facility] [place] [address] 04/20/2023 Nutrition Services Nutrition Services Dinah Mohamud RDN [address] [place] [address] 07/13/2023 Office Visit Cardiology Del Díaz Jr., DO [address] [place] [address] 09/11/2023 Office Visit Dermatology Lily Piedra MD [address] [place], [place] [address] [address] Scheduled Procedures Name Priority Associated Diagnoses Date/Ti [...] Name Relationship Healthcare Agent Relationshi p Communication Farhanadiego Sebastian Spouse Health Care Agent Care Teams Equity Manager Relationship Specialty Start Date End Date James Maria DO [address] [place] [address] PCP - General Family Medicine 06/07/18 documented as of this encounter
--- OUTSIDE RECORDS SUMMARY | 2023-07-31 19:47 | External Medical Summary | Summary of Care ---
Author Name Unknown Organization [facility] Address [address] [facility] [place] [address] Phone [phone] Care Team Providers Care Call Or Contact Centre Team Leader Name Role Phone James Maria Primary Care Provider Reason for Visit * Reason Comments eRx-Medication Refill Encounter Details Date Type Department Care Team Description 01/01/2023 Refill ising at Home, [facility] [address] [facility] [place] [address] Lesa Johnson MD [address] [facility] [place] [address] Dyslipidemia Allergies Active Allergy Reactions Severity Noted Date Comments Lisinopril Edema face/lips/tongue High 04/05/2018 documented as of this encounter (statuses as of 01/01/2023) Medications Medication Sig Dispensed Refills Start Date [...] the morning. 180 Tablet 3 2 Active Metoprolol Tartrate 25 MG Oral Tablet (Lopressor)Indicati ons:Chronic atrial fibrillation (HCC) Take by mouth 1 Tablet in the morning AND 1 Tablet before bedtime. 180 Tablet 3 2 Active FreeStyle Rose Marie 2 Sensor Test blood sugars four times daily 2 Each 11 2 Active FreeStyle Rose Marie 2 [place] Device Test blood sugars four times daily 1 Each 0 2 Active Lantus SoloStar 100 UNIT/ML Subcutaneous Solution Pen-injector (Insulin Glargine)Indication s:Type 2 diabetes mellitus with hemoglobin A1c goal of less than 8.0% (HCC) Inject under the skin 15 Units before bedtime. 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 01/09/2022 [...] as of this encounter (statuses as of 01/01/2023) Resolved Problems Problem Noted Date Resolved Date [...] as of this encounter (statuses as of 01/01/2023) Immunizations Name Administration Dates Next Due COVID-19 [...] encounter Miscellaneous Notes * Telephone Encounter - Michael Hunt DO - 01/01/2023 5:25 PM ESTSigned Prescriptions: Disp Refills Atorvastatin Calcium 40 MG Oral Tablet (Li*90 Tab*1 Sig: TAKE ONE TABLET BY MOUTH EVERY DAY Authorizing Provider: MICHAEL HUNT * Telephone Encounter - Pinky Flores LPN - 01/01/2023 2:06 PM ESTPending Prescriptions: Disp Refills Atorvastatin Calcium 40 MG Oral Tablet [Ph*90 Tab*1 Sig: TAKE ONE TABLET BY MOUTH EVERY DAY * Telephone Encounter - Pinky Flores LPN - 01/01/2023 2:01 PM EST Did you pend patient's preferred pharmacy and medication before forwarding?yes Pharmacy: [facility] [place] Pending Prescriptions: Disp Refills Atorvastatin Calcium 40 MG Oral Tablet (L*90 Tab*1 Sig: TAKE ONE TABLET BY MOUTH EVERY DAY Last Visit: Visit date not found (in office), 05/27/2022 (telemedicine) Next Visit: Visit date not found If no future appointments scheduled, and last appointment is greater than a year ago, please schedule patient for a follow-up appointment Last date the medication was ordered: 06/27/22 Is this request for a controlled substance?No [...] AM Pinky Flores LPN [facility] 01/01/2023,2:01 PM documented in this encounter Plan of Treatment Upcoming Encounters Date Type Specialty Care Team Description 01/06/2023 Office Visit Cardiology Shelley Russell PA-C [address] [place] [address] 01/27/2023 Laboratory Laboratory [place], [address] [place] [address] 02/03/2023 Office Visit Family Medicine James Maria DO [address] [place] [address] 02/18/2023 Office Visit Pharmacy [facility] [address] [place] [address] 02/18/2023 Pharmacy Pharmacy [facility] [address] [facility] [address] 03/23/2023 Office Visit Podiatry Kylie Burroughs, DPMarga [address] [place] [address] 04/20/2023 Nutrition Services Nutrition Services Dinah Mohamud, ALFIE [address] [facility] [place] [address] 09/11/2023 Office Visit Dermatology Lily Piedra MD [address] [place] [address] Scheduled Procedures Name Priority Associated Diagnoses Date/Ti me COLONOSCOPY FLEXIBLE PROXIMA L DIAGNOSTIC Recall Encounter for screening colonoscopy Health Maintenance Due Date Last Done Comments Depression Screening, Annual for Pts 12 and Over 11/21/2020 11/21/2019 DTaP,Tdap,and Td Vaccines (2 - Td or Tdap) 10/21/2021 10/21/2011, 11/09/2003 HgA1C 03/01/2023 09/01/2022, 07/, 02/27/2021, Additional history exists Albumin/Creatinine Ratio 06/05/2023 [...] as of this encounter Visit Diagnoses Diagnosis Dyslipidemia Other and unspecified hyperlipidemia documented in this encounter Advance Directives Healthcare Agents on File Name Relationship Healthcare Agent Relationshi p Communication Farhana Sebastian Spouse Health Care Agent Care Teams Call Or Contact Centre Team Leader Relationship Specialty Start Date End Date James Maria DO [address] [place] [address] PCP - General Family Medicine 06/07/18 documented as of this encounter
--- OUTSIDE RECORDS SUMMARY | 2023-07-31 19:47 | External Medical Summary ---
Author Name Unknown Address Unknown Organization K01:[facility] - [address] [place] [address] Laboratory Report Ordering Provider Test Date Status BENJAMIN BA 01/27/2023 11:01:11 Final Observation Date Value Abnormality Reference (Units ) Status HbA1C 01/27/2023 11:01:11 9.2 Above high normal 4. 0-5.6 (%) Final Performing Location [facility] - [address] [place] [address]
--- OUTSIDE RECORDS SUMMARY | 2023-07-31 19:47 | External Medical Summary | Summary of Care ---
Author Name Unknown Organization [facility] Address [address] [facility] [place] [address] Phone [phone] Care Team Providers Care Customer Support Representative Name Role Phone James Maria DO Primary Care Provider Reason for Visit * Reason Comments eRx-Medication Refill Encounter Details Date Type Department Care Team Description 01/01/2023 Refill [facility], [facility] [address] [facility] [place] [address] James Maria DO [address] [facility] [place] [address] BPH with obstruction/lower urinary tract symptoms Allergies Active Allergy Reactions Severity Noted Date [...] 11 2 Active FreeStyle Rose Marie 2 [place] Device Test blood sugars four times daily 1 Each 0 2 Active Lantus SoloStar 100 UNIT/ML Subcutaneous Solution Pen-injector (Insulin Glargine)Indication s:Type 2 diabetes mellitus with hemoglobin A1c goal of less than 8.0% (HCC) Inject under the skin 15 Units before bedtime. 15 mL 3 2 Active Pen [place] 32G X 4 MMIndications:Type 2 diabetes mellitus [...] before bedtime. 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 without angina pectoris 01/09/2022 [...] 01/01/2023 5:25 PM ESTSigned Prescriptions: Disp Refills Tamsulosin HCl 0.4 MG Oral Capsule (Flomax)100 Ca*2 Sig: TAKE ONE CAPSULE BY MOUTH EVERY MORNING Authorizing Provider: MICHAEL HUNT * Telephone Encounter - Pinky Flores LPN - 01/01/2023 2:13 PM ESTPending Prescriptions: Disp Refills Tamsulosin HCl 0.4 MG Oral Capsule [Pharma*100 Ca*2 Sig: TAKE ONE CAPSULE BY MOUTH EVERY MORNING * Telephone Encounter - Pinky Flores LPN - 01/01/2023 2:07 PM EST Did you pend patient's preferred pharmacy and medication before forwarding?yes Pharmacy: [facility] [place] Pending Prescriptions: Disp Refills Tamsulosin HCl 0.4 MG Oral Capsule (Floma*100 Ca*2 Sig: TAKE ONE CAPSULE BY MOUTH EVERY MORNING Last Visit: Visit date not found (in office), 05/27/2022 (telemedicine) Next Visit: Visit date not found If no future appointments scheduled, and last appointment is greater than a year ago, please schedule patient for a follow-up appointment Last date the medication was ordered: 04/11/22 Is this request for a controlled substance?No [...] AM Pinky Flores LPN [facility] 01/01/2023,2:07 PM documented in this encounter Plan of Treatment Upcoming Encounters Date Type Specialty Care Team Description 01/06/2023 Office Visit Cardiology Shelley Russell PA-C [address] [place] [address] 01/27/2023 Laboratory Laboratory [facility] [address] [place] [address] 02/03/2023 Office Visit Family Medicine James Maria DO [address] [place] [address] 02/18/2023 [facility] [place] [address] 02/18/2023 Pharmacy Pharmacy [facility] [address] [place] [address] 03/23/2023 Office Visit Podiatry Kylie Burroughs DPM [address] [place] [address] [place] [address] 04/20/2023 Nutrition Services Nutrition Services Dinah Mohamud, ALFIE [address] [place] [address] 09/11/2023 Office Visit Dermatology Lily Piedra MD [address] [place] [address] Scheduled Procedures Name Priority Associated Diagnoses Date/Ti [...] as of this encounter Visit Diagnoses Diagnosis BPH with obstruction/lower urinary tract symptoms Hypertrophy of prostate with urinary obstruction and other lower urinary tract symptoms (LUTS) documented in this encounter Advance Directives Healthcare Agents on File Name Relationship Healthcare Agent Relationshi p Communication Farhana Sebastian Spouse Health Care Agent Care Teams Customer Support Representative Relationship Specialty Start Date End Date James Maria DO [address] [place] [address] PCP - General Family Medicine 06/07/18 documented as of this encounter
--- OUTSIDE RECORDS SUMMARY | 2023-07-31 19:47 | External Medical Summary | Summary of Care ---
Author Name Unknown Organization [facility] Address [address] [place] [address] Phone [phone] Care Team Providers Care Farm Equipment Mechanic Name Role Phone James Maria Primary Care Provider Reason for Visit * Reason Comments Follow Up Patient here for bli sters on his hands, arms, fingers. 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 He declined treatment previously but is now willing. Encounter Details Date Type Department Care Team Description 01/19/2023 Office Visit Dermatology [facility] [address] [place] [address] Angelica Vuong MD [address] [place] [address] Dermatitis*; Skin bulla Allergies Active Allergy Reactions Severity Noted Date [...] 11 12/27/2021 Active FreeStyle Rose Marie 2 [place] Device Test blood sugars four times daily 1 Each 0 12/27/2021 Active Lantus SoloStar 100 UNIT/ML Subcutaneous Solution Pen-injector (Insulin Glargine)Indications: Type 2 diabetes mellitus with hemoglobin A1c goal of less than 8.0% (HCC) Inject under the skin 15 Units before bedtime. 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 15 mL 3 Pen [place] 32G X 4 MM Use as directed [...] Health Care as noted on problem list. [employer] is a way you can talk to [...] is now willing. documented in this encounter Plan of Treatment Upcoming Encounters Date Type Specialty Care Team Description 01/27/2023 Laboratory Laboratory [place], [facility] [address] [facility] [place] [address] 02/03/2023 Office Visit Family Medicine James Maria, DO [address] [place] [address] 02/18/2023 Office Visit Pharmacy [facility] [address] [place] [address] 02/18/2023 Pharmacy Pharmacy [facility] [address] [place] [address] 03/23/2023 Office Visit Podiatry Kylie Burroughs DPM [address] [place], [place] [address] [address] 04/20/2023 Nutrition Services Nutrition Services Dinah Mohamud, FELIPEN [address] [place] [address] 07/13/2023 Office Visit Cardiology Del Díaz Jr., DO [address] [place] [address] 09/11/2023 Office Visit Dermatology Lily Piedra MD [address] [place] [address] Scheduled Procedures Name Priority Associated Diagnoses Date/Ti [...] Order Comments 01/21/2023 2:22 PM EDT [facility] Order Comments Normal abdominal skin for punch fat pad bx today (hx recalcitrant ulcers and waxy skin on hands x months, prior bx/DIF of hands inconclusive 08/2022) 01/21/2023 2:22 PM EDT [facility] Gross Description A. Skin. amyloid punch Received in formalin with a container labeled with "Selvin Sebastian", "[id number]" and "1945" and " abdomen". Received is [...] RONNA Hopper 01/21/2023 2:22 PM EDT [facility] Sign Out Location Pathologist sign out performed at [facility] ([facility] [address] [place] [id number]. 01/21/2023 2:22 PM EDT [facility] Photographic images and diagrams represent diaz findings in this case; they are not intended to replace a complete review of the final diagnostic report. The following statement applies to Flow Cytometry, Histology, In situ Hybridization Assays and Molecular Genetics. This test was developed and performed at [facility] and its performance characteristics determined by [employer]. It has not been cleared or approved [...] control reactions. 01/21/2023 2:22 PM EDT [facility] Tissue Skin structure / Unknown 01/19/2023 12:00 PM EDT 01/19/2023 12:00 PM EDT Comment:Normal abdominal ski n for punch fat pad bx today (hx recalcitrant ulcers and waxy skin on hands x months, prior bx/DIF of hands inconclusive 08/2022) Angelica Vuong MD LAB PATHOLOGY OR DERABLES Performing Organization Address [facility] Co de Phone Number [facility] [address] [place] [address] * (ABNORMAL) CULTURE, WOUND, SUPERFICIAL, AEROBIC (01/19/2023 11:41 AM EDT) Culture Growth Few Enterobacter cloacae complex(A) MICROBROTH DILUTIONS 01/21/2023 1:46 PM EDT [facility] Comment:This bacterial speci es is known to produce a chromosomal AmpC inducible beta lactamase. Penicillin or cephalosporin use, with the exception of cefepime, may result in resistance. Superficial Wound Structure of right hand / Unknown Non-blood Collection / Unknown 01/19/2023 11:41 AM EDT 01/19/2023 1:52 PM EDT Narrative [facility] - 01/21/2023 1:46 PM EDT Light growth [...] MD LAB MICRO - GENE RAL ORDERABLES Performing Organization Address [facility]/ZIP Co de Phone Number [facility] [address] [place] [address] documented in this encounter Visit Diagnoses Diagnosis Dermatitis- Primary Contact dermatitis and other eczema, due to unspecified cause Skin bulla Other specified disorder of skin documented in this encounter Advance Directives Healthcare Agents on File Name Relationship Healthcare Agent Relationshi p Communication Farhana Sebastian Spouse Health Care Agent Care Teams Farm Equipment Mechanic Relationship Specialty Start Date End Date James Maria DO [address] [place] [address] PCP - General Family Medicine 06/07/18 documented as of this encounter
--- OUTSIDE RECORDS SUMMARY | 2023-07-31 19:47 | External Medical Summary ---
Author Name Unknown Address Unknown Organization [id number]:LAB[facility]ATORY [facility] - [address] [place] [address] Laboratory Report Ordering Provider Test Date Status BENJAMIN BA 01/27/2023 11:01:11 Final Observation Date Value Abnormality Reference (Units ) Status BUN 01/27/2023 11:01:11 23 Above high normal 6-20 (mg/dL) Final Creatinine 01/27/2023 11:01:11 1.2 0.6-1.2 (mg/dL) Final Glomerular filtration rate/1.73 sq M.predicted [Volume Rate/Area] in Serum, Plasma or Blood by Creatinine-based formula (CKD-EPI) 01/27/2023 11:01:11 63 >=60 (mL/min) Final Performing Location [facility] - [address] [place] [address]
--- OUTSIDE RECORDS SUMMARY | 2023-07-31 19:47 | External Medical Summary | Summary of Care ---
Author Name Unknown Organization [facility] Address [address] [place] [address] Phone [phone] Care Team Providers Care Family Living Educator Name Role Phone James Maria Primary Care Provider Reason for Visit * Reason Comments Follow Up Patient here for bli sters on his hands, arms, fingers. 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 He declined treatment previously but is now willing. Encounter Details Date Type Department Care Team Description 01/19/2023 Office Visit Dermatology [facility] [address] [facility] [place] [address] Angeliac Vuong MD [address] [place] [address] Dermatitis*; Skin bulla Allergies Active Allergy Reactions [...] 11 12/27/2021 Active FreeStyle Rose Marie 2 [place] Device Test blood sugars four times daily 1 Each 0 12/27/2021 Active Lantus SoloStar 100 UNIT/ML Subcutaneous Solution Pen-injector (Insulin Glargine)Indications: Type 2 diabetes mellitus with hemoglobin A1c goal of less than 8.0% (HCC) Inject under the skin 15 Units before bedtime. 15 mL 3 01/06/2022 Active Pen [place] 32G X 4 MMIndications:Type 2 diabetes mellitus [...] with fat layer exposed 01/09/2022 Atherosclerosis of [place] coronary arter y without angina pectoris 01/09/2022 [...] 2 Each 11 FreeStyle Rose Marie 2 [place] Device Test blood sugars four times daily 1 Each 0 Lantus SoloStar 100 UNIT/ML Subcutaneous Solution Pen-injector (Insulin Glargine) Inject under the skin 15 Units before bedtime. 15 mL 3 Pen [place] 32G X 4 MM Use as directed [...] Health Care as noted on problem list. [employer] is a way you can talk to [...] Specialty Care Team Description 01/27/2023 Laboratory [facility] [address] [facility] [address] 02/03/2023 Office Visit Family Medicine James Maria, [address] [facility] [place], [place] [address] 02/18/2023 Office Visit Pharmacy [facility] [address] [facility] [place] [address] 02/18/2023 Pharmacy Pharmacy [facility] [address] [facility], [place] [address] 03/23/2023 Office Visit Podiatry Kylie Burroughs, DP [address] [facility] [place] [address] 04/20/2023 Nutrition Services Nutrition Services Dinah Mohamud, RDN [address] [place], [place] [address] 07/13/2023 Office Visit Cardiology Del Díaz Jr., DO [address] [place], [place] [address] 09/11/2023 Office Visit Dermatology Lily Piedra MD [address] [place] [address], [place] [address] Pending Results Name Type Priority Associated Diagnoses Date /Time SURGICAL PATHOLOGY Pathology Routine Dermatitis 01/19/2023 12:00 PM EDT Scheduled Orders Name Type Priority Associated Diagnoses Orde r Schedule CULTURE, WOUND, SUPERFICIAL, AEROBIC Lab Routine Dermatitis Ordered: 01/19/2023 Scheduled Procedures Name Priority Associated Diagnoses Date/Ti [...] as of this encounter Visit Diagnoses Diagnosis Dermatitis- Primary Contact dermatitis and other eczema, due to unspecified cause Skin bulla Other specified disorder of skin documented in this encounter Advance Directives Healthcare Agents on File Name Relationship Healthcare Agent [facility] p Communication Farhana Sebastian Spouse Health Care Agent Care Teams Family Living Educator Relationship Specialty Start Date End Date Jmaes Maria DO [address] [place] [address] PCP - General Family Medicine 06/07/18 documented as of this encounter
--- OUTSIDE RECORDS SUMMARY | 2023-07-31 19:47 | External Medical Summary ---
Author Name Unknown Address Unknown Organization K01:LAB[facility]ATORY [facility] - [address] [facility] [address] [place] [address] Laboratory Report Ordering Provider Test Date Status ENOCH OJEDA 01/19/2023 11:41:49 Final Observation Date Value Abnormality Reference (Units ) Status Bacteria identified in Unspecified specimen by Culture 01/19/2023 11:41:49 [id number] ACTER CLOACAE COMPLEX Abnormal Final Performing Location [facility]ORY [facility] - [address] [place] [address] Ordering Provider Test Date Status ENOCH OJEDA 01/19/2023 11:41:49 Final Observation Date Value Abnormality Reference (Units) Status Cefepime susceptibility 01/19/2023 11:41:49 <=1 Susceptible Final cefOXitin [Susceptibility] 01/19/2023 11:41:49 >=64 Resistant Final Ciprofloxacin 01/19/2023 11:41:49 <=0.25 Susceptible Final Gentamicin susceptibility 01/19/2023 11:41:49 <=1 Susceptible Final Piperacillin + Tazobactamsusceptibility 01/19/2023 11:41:49 <=4 Susceptible Final TMP-SMZ susceptibility 01/19/2023 11:41:49 <=20 Susceptible Final Performing Location [facility]ATORY [facility] [place] - [address] [facility] [address]
--- OUTSIDE RECORDS SUMMARY | 2023-07-31 19:47 | External Medical Summary | Summary of Care ---
Author Name Unknown Organization [facility] Address [address] [place] [address] Phone [phone] Care Team Providers Care Car Rental Deliverer Name Role Phone James Maria Primary Care Provider Reason for Visit * Reason Onset Date Comments Test Results 01/22/2023 Encounter Details Date Type Department Care Team Description 01/22/2023 Telephone Dermatology [facility] [place] [address] [facility] [place] [address] [facility] [address] Test Results Allergies Active Allergy Reactions Severity Noted Date Comments Lisinopril Edema face/lips/tongue High 04/05/2018 documented as of this encounter (statuses as of 01/22/2023) Medications Medication Sig Dispensed Refills Start Date [...] ([facility]) Use up to 4 x a day [...] 11 12/27/2021 Active FreeStyle Rose Marie 2 [place] Device Test blood sugars four times daily 1 Each 0 12/27/2021 Active Lantus SoloStar 100 UNIT/ML Subcutaneous Solution Pen-injector (Insulin Glargine)Indications:T ype 2 diabetes mellitus with hemoglobin A1c goal of less than 8.0% ([facility]) Inject under the skin 15 Units before bedtime. 15 mL 3 01/06/2022 Active Pen [place] 32G X 4 MMIndications:Type 2 diabetes mellitus with hemoglobin A1c goal of less than 8.0% ([facility]) Use as directed . Use to inject [...] as of this encounter (statuses as of 01/22/2023) Active Problems Problem Noted Date Hypertensive heart [...] as of this encounter (statuses as of 01/22/2023) Resolved Problems Problem Noted Date Resolved Date [...] as of this encounter (statuses as of 01/22/2023) Immunizations Name Administration Dates Next Due COVID-19 [...] encounter Miscellaneous Notes * Telephone Encounter - Pam Ferreira LPN - 01/22/2023 2:22 PM EDT Patients advised. She stated understanding. * Telephone Encounter - Pam Ferreira LPN - 01/22/2023 2:22 PM EDT ----- Message from Angelica Vuong MD sent at 01/21/2023 3:05 PM EDT ----- Please let pt know there was infection [...] Specialty Care Team Description 01/27/2023 Laboratory Laboratory [facility] [address] [place] [address] 02/03/2023 Office Visit Family Medicine James Maria, [address] [place] [address] 02/18/2023 Office Visit Pharmacy [facility] [address] [place] [address] 02/18/2023 Pharmacy Pharmacy [facility] [address] [place] [address] 03/23/2023 Office Visit Podiatry Kylie Burroughs DPM [address] [facility] [place] [address] 04/20/2023 Nutrition Services Nutrition Services Dinah Mohamud, RDN [address] [place] [address] 07/13/2023 Office Visit Cardiology Del Díaz Jr., DO [address] [place] [address] 09/11/2023 Office Visit Dermatology Lily Piedra MD [address] [place] [address] Scheduled Procedures Name Priority Associated Diagnoses Date/Ti [...] Sebastian Spouse Health Care Agent Care Teams Car Rental Deliverer Relationship Specialty Start Date End Date James Maria, [address] [place] [address] PCP - General Family Medicine 06/07/18 documented as of this encounter
--- OUTSIDE RECORDS SUMMARY | 2023-07-31 19:48 | External Medical Summary | Summary of Care ---
Author Name Unknown Organization [place] [address] Care Team Providers Care Parcel Carrier Name Role Phone James Maria Primary Care Provider Reason for Referral * Precert (Within 10 days (routine)) - Authorized Specialty Diagnoses / Procedures Referred By Contac t Referred To Contact Cardiac Studies Diagnoses Paroxysmal atrial fibrillation (HCC) Localized edema Nonrheumatic aortic valve stenosis Procedures ECHO, COMPLETE (2D), TRANS-THORACIC Shelley Russell PA-C [address] [place] [id number] Referral ID Status Reason Start Date Expiration Date V isits Requested Visits Authorized [id number] Authorized Precert 11/24/2022 999 999 Reason for Visit * Reason Comments Follow Up Encounter Details Date Type Department Care Team Description 11/17/2022 Office Visit Cardiology, [facility] [address] [place] [id number] Shelley Russell PA-C [address] [place] [id number] Localized edema*; Paroxysmal atrial fibrillation (HCC); Nonrheumatic aortic valve stenosis; HTN, goal below 130/80; Acute heart failure with preserved ejection fraction (HCC) Allergies Active Allergy Reactions Severity Noted Date Comments Lisinopril Edema face/lips/tongue High 04/05/2018 documented as of this encounter (statuses as of 11/21/2022) Medications Medication Sig Dispensed Refills Start Date [...] Erectile Dysfunction. 5 Tab 6 7 Active Additional Information Patient not taking.Informant: Spouse, Reported on 11/11/2022 Glucose Blood (ONETOUCH VERIO) STRP Use up to 4 times a day E11.9 300 Strip 3 7 Active Additional Information Patient not taking.Informant: Spouse, Reported on 11/11/2022 Fluorouracil 5 % External Cream (Efudex) Apply [...] dosing E11.9 3 Each 1 1 Active Eliquis 5 MG Oral TabletIndications:C hronic atrial fibrillation (HCC) Take by mouth 1 Tablet in the morning AND 1 Tablet before bedtime. 180 Tablet 3 2 Active Additional Information Patient taking differently:5 mg Oral BID(AM/PM),Indications: afib, Informant: Spouse, Reported on 11/11/2022 metFORMIN HCl ER 500 MG Oral Tablet [...] 11 2 Active FreeStyle Rose Marie 2 [place] Device Test blood sugars four times daily 1 Each 0 2 Active Lantus SoloStar 100 UNIT/ML Subcutaneous Solution Pen-injector (Insulin Glargine)Indication s:Type 2 diabetes mellitus with hemoglobin A1c goal of less than 8.0% (HCC) Inject under the skin 15 Units before bedtime. 15 mL 3 2 Active Pen [place] 32G X 4 MMIndications:Type 2 diabetes mellitus with hemoglobin A1c goal of less than 8.0% (HCC) Use as directed . Use to inject insulin up to 4 times daily. 400 Each 3 2 Active NovoLOG FlexPen 100 UNIT/ML Subcutaneous Solution Pen-injector (insulin aspart) Inject under the skin 5 Units three times a day with meals . 15 mL 3 2 Active Tamsulosin HCl 0.4 MG Oral Capsule (Flomax)Indications :BPH with obstruction/lower urinary tract symptoms TAKE ONE CAPSULE BY MOUTH EVERY MORNING 100 Capsule 2 2 Active Insulin Aspart 100 UNIT/ML Injection Solution 5 Units . Pt takes 5 to 6 units before meals 0 2 Active Atorvastatin Calcium 40 MG Oral Tablet (Lipitor)Indication s:cholesterol Take by mouth 1 Tablet in the morning. 90 Tablet 1 2 Active Silver sulfADIAZINE 1 % External Cream (Silvadene) Apply to sores on hands 3 times daily until healed 50 g 3 2 Active Furosemide 40 MG Oral Tablet (Lasix) Take 2 tablets in the morning, 1 tablet in the afternoon 270 Tablet 3 3 Active Furosemide 40 MG Oral Tablet (Lasix)Indications: Chronic atrial fibrillation (HCC) Take by mouth 1 Tablet in the morning. 90 Tablet 3 2 11/17/19 23 Discontinued documented as of this encounter (statuses as of 11/21/2022) Active Problems Problem Noted Date Nonrheumatic aortic [...] with fat layer exposed 01/09/2022 Atherosclerosis of [place] coronary arter y without angina pectoris 01/09/2022 [...] as of this encounter (statuses as of 11/21/2022) Resolved Problems Problem Noted Date Resolved Date [...] as of this encounter (statuses as of 11/21/2022) Immunizations Name Administration Dates Next Due COVID-19 [...] Sign Reading Time Taken Comments Blood Pressure 110/64 11/17/2022 12:57 PM EST Pulse 72 11/17/2022 12:57 PM EST Temperature 36.6 C (97.9 F) 11/17/2022 12:[address] Respiratory Rate 22 11/17/2022 12:57 PM EST Oxygen Saturation 99% 11/17/2022 12:57 PM EST Inhaled Oxygen Concentration - - Weight 92.5 kg (204 lb) 11/17/2022 12:57 PM EST Height - - Body Mass Index 32.94 09/04/2022 4:37 PM EDT documented in this encounter Progress Notes * Shelley Russell PA-C - 11/17/2022 12:58 PM EST 11/17/2022 Cardiology Acute Visit: HPI: Patient is a 77-year-old male here today for an acute cardiology visit requested by the patient's PCP office for worsening lower extremity edema and weight gain of approximately 25 lb over the last several months. Last clinic evaluation approximately [address] Díaz. Patient is significantly hard of hearing and has difficulty communicating. Most of the history and recent events were obtained from the who then communicated to the patient. Patient went to see PCP last week for routine follow-up. Found to be up approximately 25 lb in weight with worsening LE edema. Several small open wounds noted. He was referred to the wound clinic ands appt this week. No overt signs of cellulitis but B/L erythema noted again today Furosemide was increased to 40 mg twice daily for 3 days. Patient is on sure if this aided his symptoms. Weight is actually up again 4 lb today compared to PCP visit. He notes shortness of breath with minimal activity. No hypoxia in exam room today. No chest pain. No orthopnea, PND, lower extremityedema. reports he chronically sleeps upright in a recliner with feet hanging down. He is on chr onic anticoagulation so DVT is unlikely. Review of Systems: See HPI for pertinent positives. All others negative, other than those noted in HPI. PAST MEDICAL HISTORY: 1. Paroxysmal atrial fibrillation with a chads Vasc score of 4 2. Moderate aortic stenosis 3. Very hard of hearing 4. Diabetes 5. Hypertension Patient Active Problem List Diagnosis Code Mixed conductive and sensorineural hearing loss of right ear with restricted hearing of left ear H90.A31 Type 2 diabetes mellitus with hemoglobin A1c goal of less than 8.0% ([facility]) E11.9 Dyslipidemia E78.5 HTN, goal below 130/80 I10 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, bilateral M21.961, M21.962 Type 2 diabetes mellitus with polyneuropathy ([facility]) E11.42 Tympanic membrane perforation, 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, 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, with fat layer exposed ([facility]) E11.621, L97.512 Atherosclerosis of [place] co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 angina pectoris I25.10 Hoarding behavior F42.3 Paroxysmal atrial fibrillation (HCC) I48.0 Moderate aortic stenosis I35.0 Overweight (BMI 25.0-29.9) E66.3 Puncture wound of right foot S91.331A Unsteady gait when walking R26.81 Heart failure (HCC) I50.9 Cellulitis of toe of left foot L03.032 Allergies as of 11/17/2022 - Reviewed 11/17/2022 Allergen Reaction Noted Lisinopril Edema face/lips/tongue 04/05/2018 Current Outpatient Medications Medication Sig Dispense Refill ONETOUCH ULTRA BLUE STRP USE TO CHECK GLUCOSE 4 TIMES DAILY 100 Strip 0 ONETOUCH DELICA LANCETS 33G MISC USE ONE TO CHECK GLUCOSE 4 TIMES DAILY 100 Each 0 Fluorouracil 5 % External Cream (Efudex) Apply to Scalp, ears, and temples twice a day for three weeks. 40 g 1 Eliquis 5 MG Oral Tablet Take by mouth 1 Tablet in the morning AND 1 Tablet before bedtime. (Patient taking differently: Take 1 Tablet by mouth in the morning and 1 Tablet before bedtime.) 180 Tablet 3 metFORMIN HCl ER 500 MG Oral [...] 2 Each 11 FreeStyle Rose Marie 2 [place] Device Test blood sugars four times daily 1 Each 0 Lantus SoloStar 100 UNIT/ML Subcutaneous Solution Pen-injector (Insulin Glargine) Inject under the skin 15 Units before bedtime. 15 mL 3 Pen [place] 32G X 4 MM Use as directed . Use to inject insulin up to 4 times daily. 400 Each 3 NovoLOG FlexPen 100 UNIT/ML Subcutaneous Solution Pen-injector (insulin aspart) Inject under the skin 5 Units three times a day with meals . 15 mL 3 Tamsulosin HCl 0.4 MG Oral Capsule (Flomax) TAKE ONE CAPSULE BY MOUTH EVERY MORNING 100 Capsule2 Atorvastatin Calcium 40 MG Oral Tablet (Lipitor) Take by mouth 1 Tablet in the morning. 90 Tablet 1 Silver sulfADIAZINE 1 % External Cream (Silvadene) Apply to sores on hands 3 times daily until healed 50 g 3 Furosemide 40 MG Oral Tablet (Lasix) Take 2 tablets in the morning, 1 tablet in the afternoon 270 Tablet 3 Sildenafil Citrate (VIAGRA) 50 MG Tablet Take 1 Tab by mouth as needed for Erectile Dysfunction. (Patient not taking: Reported on 11/11/2022) 5 Tab 6 Glucose Blood (ONETOUCH VERIO) STRP Use up to 4 times a day E11.9 (Patient not taking: Reportedon 06/23/2022) 300 Strip 3 Insulin Syringe-Needle U-100 30G X /16" 0.3 ML Use up to 4 x a day for insulin dosing E11.9 3 Each 1 Insulin Aspart 100 UNIT/ML Injection Solution 5 Units . Pt takes 5 to 6 units before meals (Patient not taking: Reported on 06/23/2022) No current facility-administered medications for this visit. PHYSICAL EXAM: Vital Signs: BP 110/64 (BP Cuff Size: Large) | Pulse 72 | Temp 36.6 C (97.9 F) (Infrared ) | Resp 22 | Wt 92.5 kg (204 lb) | SpO2 99% | BMI 32.94 kg/m | BSA 2.08 m Wt Readings from Last 3 Encounters: 11/17/22 92.5 kg (204 lb) 11/11/22 90.9 kg (200 lb 6.4 oz) 09/04/22 80.8 kg (178 lb 2.1 oz) General: Awake, alert and oriented x [...] rebound, guarding or tenderness. No organomegaly. Extremities: 2+ hard indurated edema B/L with erythema B/L. Cardiac studies/labs: EKG performed today and reviewed personally: Normal sinus rhythm Right bundle branch block Left anterior fascicular block Bifascicular block Voltage criteria for LVH. Compared with prior EKG, PAC's are no longer present. Echocardiogram report reviewed dated November 09, 2021 at [facility]: Study was technically limited. No comparison study available. Ejection fraction 60-65%. Mild concentric LVH. Left atrium is moderately dilated. Aortic valve is moderately calcified. Moderate aortic valvular stenosis. Latest Reference Range & Units 11/14/22 14:04 Sodium 135 - 146 mmol/L 139 Potassium 3.5 - 5.1 mmol/L 4.6 Chloride 98 - 107 mmol/L 96 (L) CO2 22 - 32 mmol/L 32 BUN 6 - 20 mg/dL 24 (H) Creatinine 0.6 - 1.2 mg/dL 1.3 (H) Estimated Glomerular Filtration Rate >=60 mL/min 55 (L) Anion Gap 7 - 15 mmol/L 11 Glucose 70 - 120 mg/dL 201 (H) Calcium 8.4 - 10.2 mg/dL 9.6 (L): Data is abnormally low (H): Data is abnormally high IMPRESSION: 77 year old male 1. Worsening LE edema B/L with ulcerations 2. Paroxysmal atrial fibrillation with a chads Vasc score of 4. Currently NSR. Continue anticoagulation 3. Moderate aortic stenosis 4. Very hard of hearing 5. Diabetes 6. Hypertension RECOMMENDATIONS: Increased edema noted B/L with significant weight gain and ulcerations. He has been set up with wound clinic for later this week. Recommend further titration of diuretics. He will increase furosemide to 80 mg in the morning and 40 mg in the afternoon. Repeat BMP later this week. At that time will see if any progress is being made and will provide instructions for ongoing dose of diuretic. Low sodium diet encouraged. Will update echo as well to reevaluate LV function and aortic stenosis. CHF tools discussed including daily weights, salt/sodium/fluid restriction, and use of diuretic protocol.. Instructions written and provided to patient/. Most of today's visit and instructions were relayed through due to hearing impairment of the patient. I spent a total of 40 minutes on the date of service in preparation, delivery, and documentation ofthe care provided to Selvin Sebastian excluding any time spent in the performance of separately billed services. The patient agrees to the above plan and will call with additional questions or concerns. ER with all emergencies advised. Follow-up: Return in about 2 weeks (around 12/01/2022). | Check-out note: Blood work on in [place] Schedule echo 2 week f/u Drew Díaz or another AP Shelley Russell PA-C Department of Cardiology This chart was completed in part utilizing [employer] Voice Recognition Software. Grammatical errors, random word insertions, prounoun errors, and incomplete sentences are an occasional consequence of this system due to software limitations, ambient noise, and hardware issues. Any formal questions or concerns about the content, text, or information contained within the body of this dictation should be directly addressed to the provider for clarification. documented in this encounter Procedure Notes * Carlos Oreilly DO - 11/17/2022 12:54 PM ESTAssociated Order(s): EKG REASON FOR STUDY: parox a-fib; moderate aortic stenosis; diab CONCLUSIONS: Normal sinus rhythm with sinus arrhythmia Right bundle branch block Left anterior fascicular block Bifascicular block Left ventricular hypertrophy Abnormal ECG When compared with ECG of 26-NOV-2021 14:05, Premature atrial complexes are no longer Present Minimal criteria for Septal infarct are no longer Present Ventricular Rate: 69 Atrial Rate: 69 DC Interval: 178 QRS Duration: 120 QT/QTc: 446/477 ms P-R-T Dum[place]: 78 : -51 : 13 degrees documented in this encounter Nursing Notes * Kelechi Brooks RN - 11/17/2022 12:55 PM EST Examination Room: room 1 Name: Selvin Sebastian Date of : (1945). Reason for Visit: for follow up Interim Hospitalization(s): denies Problems/Concerns: lower legs swollen Chest Pain/SOB: PIERCE; denies [facility] Discussed: Yes [facility] is a way you can talk to [...] Encounters Date Type Specialty Care Team Description 12/01/2022 Office Visit Cardiology Shelley Russell PA-C [address] [facility] [place] [address] 12/10/2022 Office Visit Cardiology Del Díaz Jr., [address] [facility] [place] [address] 12/19/2022 Nutrition Services Nutrition Services Dinah Mohamud, FELIPEN [address] [facility] [place] [address] 12/24/2022 Office Visit [facility] Kylie Burroughs[facility] [phone] 12/30/2022 Cardiac Studies Cardiac Studies 02/03/2023 Office Visit Family Medicine James Maria, [address] [facility] [place] [address] 02/18/2023 Office Visit Pharmacy [facility] [address] [facility] [place] [address] 02/18/2023 Pharmacy [facility] [phone] 09/11/2023 Office Visit Dermatology Lily Piedra MD [address] [place], [place] [address] [address] Scheduled Orders Name Type Priority Associated Diagnoses Orde r Schedule ECHO, COMPLETE (2D), TRANS-THORACIC Echocardiology Routine Paroxysmal atrial fibrillation (HCC) Localized edema Nonrheumatic aortic valve stenosis Expected: 11/24/2022 (Approximate), Expires: 05/17/2024 Scheduled Procedures Name Priority Associated Diagnoses Date/Ti me COLONOSCOPY FLEXIBLE PROXIMA L DIAGNOSTIC Recall Encounter for screening colonoscopy Health Maintenance Due Date Last Done Comments Depression Screening, Annual for Pts 12 and Over 11/21/2020 11/21/2019 DTaP,Tdap,and Td Vaccines (2 - Td or Tdap) 10/21/2021 10/21/2011, 11/09/2003 HgA1C 03/01/2023 09/01/2022, 05/03, 02/27/2021, Additional history exists Alb / Creat Ratio 06/05/2023 06/05/2022, , 12/13/2018, Additional history exists DIABETES-EYE EXAM 09/01/2023 [...] Procedure Name Priority Date/Time Associated Diagnosis Comments DC ECG ROUTINE ECG W/LEAST 12 LDS W/I&R Routine 11/17/2022 12:54 PM EST Paroxysmal atrial fibrillation (HCC) Localized edema documented in this encounter Results * (ABNORMAL) BASIC METABOLIC PANEL (11/20/2022 11:57 AM EST) BUN 22(H) 6 - 20 mg/dL 11/20/2022 10:13 PM EST [facility] Creatinine 1.3(H) 0.6 - 1.2 mg/dL 11/20/2022 10:13 PM EST [facility] Estimated Glomerular Filtration Rate 59(L) >=60 mL/min 11/20/2022 10:13 PM EST [facility] Comment:eGFR is calculated b ased on the CKD-EPI 2020 equation Sodium 139 135 - 146 mmol/L 11/20/2022 10:13 PM EST [facility] Potassium 4.3 3.5 - 5.1 mmol/L 11/20/2022 10:13 PM EST [facility] Chloride 96(L) 98 - 107 mmol/L 11/20/2022 10:13 PM EST [facility] CO2 35(H) 22 - 32 mmol/L 11/20/2022 10:13 PM EST [facility] Anion Gap 8 7 - 15 mmol/L 11/20/2022 10:13 PM EST [facility] Glucose 154(H) 70 - 120 mg/dL 11/20/2022 10:13 PM EST [facility] Calcium 9.6 8.4 - 10.2 mg/dL 11/20/2022 10:13 PM EST [facility] Blood Venous blood specimen / Unknown Venipuncture / Unknown 11/20/2022 11:57 AM EST 11/20/2022 12:00 PM EST Shelley Russell PA-C LAB BLOOD [facility] [address] [place] [address] * (ABNORMAL) CBC (11/20/2022 11:57 AM EST) WBC 9.67 4.00 - 10.80 K/uL 11/20/2022 11:49 PM EST [facility] RBC 4.44 4.50 - 5.25 M/uL 11/20/2022 11:49 PM EST [facility] HGB 13.1(L) 14.0 - 16.8 g/dL 11/20/2022 11:49 PM EST [facility] HCT 40.2 40.0 - 48.4 % 11/20/2022 11:49 PM EST [facility] MCV 90.5 82.0 - 99.5 fL 11/20/2022 11:49 PM EST [facility] MCH 29.5 27.0 - 34.0 pg 11/20/2022 11:49 PM EST [facility] MCHC 32.6 32.0 - 36.0 g/dL 11/20/2022 11:49 PM EST [facility] RDW 12.4 11.5 - 15.5 % 11/20/2022 11:49 PM EST [facility] PLT 260 140 - 400 K/uL 11/20/2022 11:49 PM EST [facility] MPV 11.1 6.6 - 11.1 fL 11/20/2022 11:49 PM EST [facility] nRBCs 0 <=0 /100 WBCs 11/20/2022 11:49 PM EST [facility] Blood Venous blood specimen / Unknown Venipuncture / Unknown 11/20/2022 11:57 AM EST 11/20/2022 12:00 PM EST Shelley Russell PA-C [facility] Organization Address City/State/ZIP Co de Phone Number [facility] [address] [place] [address] * EKG (11/17/2022 12:54 PM EST) 11/17/2022 12:5 4 PM EST Procedure Note Carlos Oreilly DO - 11/17/2022 12:54 PM EST REASON FOR STUDY: parox a-fib; moderate aortic stenosis; diab CONCLUSIONS: Normal sinus rhythm with sinus arrhythmia Right bundle branch block Left anterior fascicular block Bifascicular block Left ventricular hypertrophy Abnormal ECG When compared with ECG of 26-NOV-2021 14:05, Premature atrial complexes are no longer Present Minimal criteria for Septal infarct are no longer Present Ventricular Rate: 69 Atrial Rate: 69 DC Interval: 178 QRS Duration: 120 QT/QTc: 446/477 ms P-R-T Dumont: 78 : -51 : 13 degrees Shelley Russell PA-C EKG [facility] CARDIOLOGY documented in this encounter Visit Diagnoses Diagnosis Localized edema- Primary Edema Paroxysmal atrial fibrillation (HCC) Atrial fibrillation Nonrheumatic aortic valve stenosis Aortic valve disorders HTN, goal below 130/80 Unspecified essential hypertension Acute heart failure with preserved ejection fraction (HCC) documented in this encounter Advance Directives Healthcare Agents on File Name Relationship Healthcare Agent [facility] Communication Farhana Sebastian Spouse Health Care Agent Care Teams Parcel Carrier Relationship Specialty Start Date End Date James Maria DO [address] [place] [id number] PCP - General Family Medicine 06/07/18 documented as of this encounter
--- OUTSIDE RECORDS SUMMARY | 2023-07-31 19:48 | External Medical Summary | Summary of Care ---
Author Name Unknown Organization [facility] Address [place] [address] Care Team Providers Care Rip Tailer Name Role Phone Rylan Mariar Sophy Primary Care Provider Reason for Visit * Reason Comments Nutritional Services Documentation Encounter Details Date Type Department Care Team Description 12/24/2022 Nutrition Services Nutrition, Erica Vogel [address] [place] [address] Dinah Mohamud RDN [address] [facility] [place] [address] Arrived Allergies Active Allergy Reactions Severity Noted Date Comments Lisinopril Edema face/lips/tongue High 04/05/2018 documented as of this encounter (statuses as of 12/24/2022) Medications Medication Sig Dispensed Refills Start Date End Date Status ONETOUCH ULTRA BLUE STRP USE TO CHECK GLUCOSE 4 TIMES DAILY 100 Strip 0 11/13/2016 Active ONETOUCH DELICA LANCETS 33G MISC USE ONE TO CHECK GLUCOSE 4 TIMES DAILY 100 Each 0 11/13/2016 Active Sildenafil Citrate (VIAGRA) 50 MG TabletIndications:Im [...] dosing E11.9 3 Each 1 09/05/2021 Active Eliquis 5 MG Oral TabletIndications:Ch ronic atrial fibrillation (HCC) Take by mouth 1 Tablet in the morning AND 1 Tablet before bedtime. 180 Tablet 3 12/25/2021 Active Additional Information Patient taking differently:5 mg [...] Tablet (Lopressor)Indicatio ns:Chronic atrial fibrillation (HCC) Take by mouth 1 Tablet in the morning AND 1 Tablet before bedtime. 180 Tablet 3 12/25/2021 Active FreeStyle Rose Marie 2 Sensor Test blood sugars four times daily 2 Each 11 12/27/2021 Active FreeStyle Rose Marie 2 [place] Device Test blood sugars four times daily 1 Each 0 12/27/2021 Active Lantus SoloStar 100 UNIT/ML Subcutaneous Solution Pen-injector (Insulin Glargine)Indications :Type 2 diabetes mellitus with hemoglobin A1c goal of less than 8.0% (HCC) Inject under the skin 15 Units before bedtime. 15 mL 3 01/06/2022 Active Pen [place] 32G X 4 MMIndications:Type 2 diabetes mellitus with hemoglobin A1c goal of less than 8.0% (HCC) Use as directed . Use to inject insulin up to 4 times daily. 400 Each 3 01/06/2022 Active NovoLOG FlexPen 100 UNIT/ML Subcutaneous Solution Pen-injector (insulin aspart) Inject under the skin 5 Units three times a day with meals . 15 mL 3 01/08/2022 Active Tamsulosin HCl 0.4 MG Oral Capsule (Flomax)Indications: BPH with obstruction/lower urinary tract symptoms TAKE ONE CAPSULE BY MOUTH EVERY MORNING 100 Capsule 2 04/11/2022 Active Insulin Aspart 100 UNIT/ML Injection Solution 5 Units. Pt takes 5 to 6 units before meals 0 05/16/2022 Active Atorvastatin Calcium 40 MG Oral Tablet (Lipitor)Indications :cholesterol Take by mouth 1 Tablet in the morning. 90 Tablet 1 06/27/2022 Active Silver sulfADIAZINE 1 % External Cream (Silvadene) Apply to sores on hands 3 times daily until healed 50 g 3 08/27/2022 Active Furosemide 40 MG Oral Tablet (Lasix) Take 2 tablets in the morning, 1 tablet in the afternoon 270 Tablet 3 11/17/2022 Active documented as of this encounter (statuses as of 12/24/2022) Active Problems Problem Noted Date Nonrheumatic aortic [...] with fat layer exposed 01/09/2022 Atherosclerosis of [place] coronary arter y without angina pectoris 01/09/2022 [...] as of this encounter (statuses as of 12/24/2022) Resolved Problems Problem Noted Date Resolved Date [...] as of this encounter (statuses as of 12/24/2022) Immunizations Name Administration Dates Next Due COVID-19 [...] Progress Notes * Dinah Mohamud RDN - 12/24/2022 1:35 PM EST Message sent to pt's PCP requesting a Neurology referral to address symptoms of neuropathy. Also requested a current albumin/creatinine ratio. If no improvement in this level, requested Nephrology consult. Dinah Mohamud RDN, Clinical Dietitian II, [facility] Clinical Nutrition Services [facility] [address] [place] [address] Available via [employer] Portal documented in this encounter Plan of Treatment Upcoming Encounters Date Type Specialty Care Team Description 12/24/2022 Office Visit Podiatry Kylie Burroughs, [facility] [address] [place], [place] [address] [id number] DM type 2 with diabetic peripheral neuropathy (HCC)*; Corns and callosities; Onychomycosis 12/30/2022 Cardiac Studies Cardiac Studies 01/06/2023 Office Visit Cardiology Shelley Russell PA-C [address] [place] [address] 02/03/2023 Office Visit Family Medicine James Maria DO [address] [place] [address] 02/18/20[facility] [address] [place] [address] 02/18/2023 Pharmacy Pharmacy [facility] [address] [place] [address] 04/20/2023 Nutrition Services Nutrition Services Dinah Mohamud RDN [address] [place] [address] 09/11/2023 Office Visit Dermatology Lily Piedra MD [address] [facility] [place] [address] Scheduled Procedures Name Priority Associated Diagnoses Date/Ti [...] Sebastian Spouse Health Care Agent Care Teams Rip Tailer Relationship Specialty Start Date End Date James Maria DO 132 [facility] [place] [address] PCP - General Family Medicine 06/07/18 documented as of this encounter
--- OUTSIDE RECORDS SUMMARY | 2023-07-31 19:48 | External Medical Summary | Summary of Care ---
Author Name Unknown Organization [place] [address] Care Team Providers Care Validation Software Facilitator Name Role Phone James Maria Primary Care Provider Reason for Visit * Reason Comments Follow Up Encounter Details Date Type Department Care Team Description 12/01/2022 Office Visit Cardiology, [facility] [address] [place] [address] Shelley Russell PA-C [address] [place] [address] Acute on chronic heart failure with preserved ejection fraction (HCC)*; Paroxysmal atrial fibrillation (HCC); Nonrheumatic aortic valve stenosis; HTN, goal below 130/80 Allergies Active Allergy Reactions Severity Noted Date Comments Lisinopril Edema face/lips/tongue High 04/05/2018 documented as of this encounter (statuses as of 12/01/2022) Medications Medication Sig Dispensed Refills Start Date [...] 11 12/27/2021 Active FreeStyle Rose Marie 2 [place] Device Test blood sugars four times daily 1 Each 0 12/27/2021 Active Lantus SoloStar 100 UNIT/ML Subcutaneous Solution Pen-injector (Insulin Glargine)Indications :Type 2 diabetes mellitus with hemoglobin A1c goal of less than 8.0% (HCC) Inject under the skin 15 Units before bedtime. 15 mL 3 01/06/2022 Active Pen [place] 32G X 4 MMIndications:Type 2 diabetes mellitus [...] as of this encounter (statuses as of 12/01/2022) Active Problems Problem Noted Date Nonrheumatic aortic [...] with fat layer exposed 01/09/2022 Atherosclerosis of [place] coronary arter y without angina pectoris 01/09/2022 [...] as of this encounter (statuses as of 12/01/2022) Resolved Problems Problem Noted Date Resolved Date [...] as of this encounter (statuses as of 12/01/2022) Immunizations Name Administration Dates Next Due COVID-19 [...] Sign Reading Time Taken Comments Blood Pressure 120/62 12/01/2022 3:20 PM EST Pulse 60 12/01/2022 3:20 PM EST Temperature 36.6 C (97.8 F) 12/01/2022 3:20 PM ES T Respiratory Rate 18 12/01/2022 3:20 PM EST Oxygen Saturation - - Inhaled Oxygen Concentration - - Weight 90.6 kg (199 lb 12.8 oz) 12/01/2022 3:20 PM EST Height - - Body Mass Index 32.26 09/04/2022 4:37 PM EDT documented in this encounter Progress Notes * Shelley Russell PA-C - 12/01/2022 3:53 PM EST 12/01/2022 Cardiology F/U: HPI: Patient is a 77-year-old male here today for close cardiology follow-up visit. Last clinic evaluation approximately 2 weeks ago with the undersigned as an acute add on at that time with complaints of worsening lower extremity edema and shortness of breath. Primary quality assurance assessor is Dr. Díaz. Patient is significantly hard of hearing and has difficulty communicating. Most of the history and recent events were obtained from the who then communicates to the patient. Last visit, furosemide was titrated to 80 mg in the morning and 40 mg in the afternoon due to worsening shortness of breath, weight gain of approximately 20 some lb and worsening lower extremity edema. He was sent to the [facility] wound clinic due to blistering of his legs and cellulitis. He has weeklyvisits and his swelling is improving. Finished antibiotics. After last labs, furosemide was to be increased to 80 mg twice daily but patient never received this message and has only been taking 80 in the morning and 40 mg in the afternoon. However he continues to respond to this dose. He is down nearly 6 lb since prior office visit. reports his lower extremity edema and wounds have greatly improved per this morning's visit to the Wound Clinic. He notes ongoing fatigue and shortness of breath. He is yet to have his repeat echocardiogram to evaluate aortic stenosis. Recent labs demonstrated stable renal function. 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, with fat layer exposed ([facility]) E11.621, L97.512 Atherosclerosis of [place] co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 angina pectoris I25.10 Hoarding behavior F42.3 Paroxysmal atrial fibrillation ([facility]) I48.0 Moderate aortic stenosis I35.0 Overweight (BMI 25.0-29.9) E66.3 Puncture wound of right foot S91.331A Unsteady gait when walking R26.81 Heart failure ([facility]) I50.9 Cellulitis of toe of left foot L03.032 Nonrheumatic aortic valve stenosis I35.0 Allergies as of 12/01/2022 - Reviewed 12/01/2022 Allergen Reaction Noted Lisinopril Edema face/lips/tongue 04/05/2018 [...] for insulin dosing E11.9 3 Each 1 Eliquis 5 MG Oral Tablet Take [...] before bedtime. 180 Tablet 3 FreeStyle Rose Amrie 2 Sensor Test blood sugars four times daily 2 Each 11 FreeStyle Rose Marie 2 [place] Device Test blood sugars four times daily 1 Each 0 Lantus SoloStar 100 UNIT/ML Subcutaneous Solution Pen-injector (Insulin Glargine) Inject under the skin 15 Units before bedtime. 15 mL 3 Pen [place] 32G X 4 MM Use as directed . Use to inject insulin up to 4 times daily. 400 Each 3 NovoLOG FlexPen 100 UNIT/ML Subcutaneous Solution Pen-injector (insulin aspart) Inject under the skin 5 Units three times a day with meals . 15 mL 3 Tamsulosin HCl 0.4 MG Oral Capsule (Flomax) TAKE ONE CAPSULE BY MOUTH EVERY MORNING 100 Capsule2 Insulin Aspart 100 UNIT/ML Injection Solution 5 Units. Pt takes 5 to 6 units before meals Atorvastatin Calcium 40 MG Oral Tablet (Lipitor) Take by mouth 1 Tablet in the morning. 90 Tablet 1 Silver sulfADIAZINE 1 % External Cream (Silvadene) Apply to sores on hands 3 times daily until healed 50 g 3 Furosemide 40 MG Oral Tablet (Lasix) Take 2 tablets in the morning, 1 tablet in the afternoon 270 Tablet 3 No current facility-administered medications for this visit. PHYSICAL EXAM: Vital Signs: BP 120/62 | Pulse 60 | Temp 36.6 C (97.8 F) | Resp 18 | Wt 90.6 kg (199 lb 12.8 oz) | BMI 32.26 kg/m | BSA 2.05 m Wt Readings from Last 3 Encounters: 12/01/22 90.6 kg (199 lb 12.8 oz) 11/17/22 92.5 kg (204 lb) 11/11/22 90.9 kg (200 lb 6.4 oz) General: Awake, alert and oriented x [...] rebound, guarding or tenderness. No organomegaly. Extremities: B/L extremities wrapped. No pitting edema above wraps. Cardiac studies/labs: EKG performed Nov 2022 Normal sinus rhythm Right bundle branch block Left anterior fascicular block Bifascicular block Voltage criteria for LVH. Compared with prior EKG, PAC's are no longer present. Echocardiogram report reviewed dated November 09, 2021 at [facility]: Study was technically limited. No comparison [...] low IMPRESSION: 77 year old male 1. Acute on chronic diastolic HF - improved edema/volume status with titration of furosemide. Weight trending down. 2. Paroxysmal atrial fibrillation with a CHADS2 VASc score of 4. Currently NSR. Continue anticoagulation 3. Moderate aortic stenosis - repeat echo scheduled for Dec 2022. 4. Very hard of hearing 5. Diabetes 6. Hypertension - controlled RECOMMENDATIONS: Edema improving. Weight trending down. Continue furosemide Recommend further titration of diuretics. He will increase furosemide to 80 mg in the morning and 40 mg in the afternoon. Recent labs with stable renal function. I'm concerned that his aortic stenosis has progressed based on his worsening fluid status and murmur on exam. Echo has been scheduled and will await results. May need to consider [facility] valve clinic appt. Low sodium diet encouraged. Fluid restriction of 50-60 ounces per day. CHF tools discussed including daily weights, salt/sodium/fluid restriction, and use of diuretic protocol.. Most of today's visit and instructions were relayed through due to hearing impairment of the patient. All questions answered. I spent a total of 40 minutes on the date of service in preparation, delivery, and documentation ofthe care provided to Selvin Sebastian excluding any time spent in the performance of separately billed services. The patient agrees to the above plan and will call with additional questions or concerns. ER with all emergencies advised. Follow-up: Return in about 1 month (around 12/30/2022). | Check-out note: Cancel dec appt with Dr. Díaz; Reschedule appt with Dr. Díaz for after echo in 1-2 months Shelley Russell PA-C Department of Cardiology This chart was completed in part utilizing [employer] Speech Voice Recognition Software. Grammatical errors, random [...] documented in this encounter Nursing Notes * Carolyn Rowan LPN - 12/01/2022 3:19 PM EST Examination Room: 6 Name: Selvin Sebastian Date of : (1945) Reason for Visit: Follow up[ Interim Hospitalization(s): Denies Problems/Concerns: SOB, fatigue Chest Pain/SOB: Denies [facility] a way you can [...] Encounters Date Type Specialty Care Team Description 12/19/2022 Nutrition Services Nutrition Services Dinah Mohamud, ALFIE [address] [place] [address] 12/24/2022 Office Visit Podiatry Kylie Burroughs DPM [address] [facility] [place] [address] 12/30/2022 Cardiac Studies Cardiac Studies 01/06/2023 Office Visit Cardiology Shelley Russell PA-C [address] [place] [address] 02/03/2023 Office Visit Family Medicine James Maria DO [address] [place] [address] 02/18/2023 [facility] [address] [place] [address] 02/18/2023 Pharmacy Pharmacy [facility] Erica 132 [facility] [place] [address] 09/11/2023 Office Visit Dermatology Lily Piedra MD 200 [facility] [place] [address] Scheduled Procedures Name Priority Associated Diagnoses Date/Ti [...] as of this encounter Visit Diagnoses Diagnosis Acute on chronic heart failure with preserved ejection fraction (HCC)- Primary Paroxysmal atrial fibrillation (HCC) Atrial fibrillation Nonrheumatic aortic valve stenosis Aortic valve disorders HTN, goal below 130/80 Unspecified essential hypertension documented in this encounter Advance Directives Healthcare Agents on File Name Relationship Healthcare Agent Relationsia p Communication Farhana Sebastian Spouse Health Care Agent Care Teams Validation Software Facilitator Relationship Specialty Start Date End Date James Maria DO 132 [facility] [place] [address] PCP - General Family Medicine 06/07/18 documented as of this encounter
--- OUTSIDE RECORDS SUMMARY | 2023-07-31 19:48 | External Medical Summary | Summary of Care ---
Author Name Unknown Organization [facility] Address [place] [address] Care Team Providers Care Engineering Mgr Name Role Phone James Maria Primary Care Provider Encounter Details Date Type Department Care Team Description 12/17/2022 Telephone [facility] [place] 132 [facility] [place] [address] Wendy Cisneros CRNP [facility] [place] [address] Allergies Active Allergy Reactions Severity Noted Date Comments Lisinopril Edema face/lips/tongue High 04/05/2018 documented as of this encounter (statuses as of 12/17/2022) Medications Medication Sig Dispensed Refills Start Date [...] 11 12/27/2021 Active FreeStyle Rose Marie 2 [place] Device Test blood sugars four times daily 1 Each 0 12/27/2021 Active Lantus SoloStar 100 UNIT/ML Subcutaneous Solution Pen-injector (Insulin Glargine)Indications :Type 2 diabetes mellitus with hemoglobin A1c goal of less than 8.0% (HCC) Inject under the skin 15 Units before bedtime. 15 mL 3 01/06/2022 Active Pen [place] 32G X 4 MMIndications:Type 2 diabetes mellitus [...] as of this encounter (statuses as of 12/17/2022) Active Problems Problem Noted Date Nonrheumatic aortic [...] with fat layer exposed 01/09/2022 Atherosclerosis of [place] coronary arter y without angina pectoris 01/09/2022 [...] as of this encounter (statuses as of 12/17/2022) Resolved Problems Problem Noted Date Resolved Date [...] as of this encounter (statuses as of 12/17/2022) Immunizations Name Administration Dates Next Due COVID-19 [...] * Telephone Encounter - BARTOLO Bentley - 12/17/2022 2:13 PM EST Pt is no longer followed by [facility], please call [employer] [facility] [employer] at [phone] and request theyfax request for rose marie supplies to pcp for approval. Thanks. documented in this encounter Plan of Treatment Upcoming Encounters Date Type Specialty Care Team Description 12/19/2022 Nutrition Services Nutrition Services Dinah Mohamud RDN [address] [place] [address] 12/24/2022 Office Visit Podiatry Kylie Burroughs DPM [address] [place], [place] [address] [address] 12/30/2022 Cardiac Studies Cardiac Studies 01/06/2023 Office Visit Cardiology Shelley Russell PA-C [address] [place] [address] 02/03/2023 Office Visit Family Medicine James Maria DO [address] [place] [address] 02/18/2023 Office Visit Pharmacy [facility] Erica [address] [place] [address] 02/18/2023 Pharmacy Pharmacy [facility] [address] [place] [address] 09/11/2023 Office Visit Dermatology Lily Piedra MD [address] [place] [address], [place] [address] Scheduled Procedures Name Priority Associated Diagnoses Date/Ti [...] Agents on File Name Relationship Healthcare Agent [facility] Communication Farhana Sebastian Spouse Health Care Agent Care Teams Engineering Mgr Relationship Specialty Start Date End Date James Maria DO [address] [place] [address] PCP - General Family Medicine 06/07/18 documented as of this encounter
--- OUTSIDE RECORDS SUMMARY | 2023-07-31 19:48 | External Medical Summary | Summary of Care ---
Author Name Unknown Organization [place] [address] Care Team Providers Care Mail Sorter Name Role Phone Yariel Mariavor Sophy Primary Care Provider Reason for Visit * Reason Comments DSMT Follow-Up Encounter Details Date Type Department Care Team Description 12/19/2022 Nutrition Services Nutrition, [facility] [address] [facility] [place] [address] Dinah Mohamud RDN 132 [facility] [place] [address] Type 2 diabetes mellitus with hemoglobin A1c goal of less than 8.0% ([facility])*; Dyslipidemia; Obesity, Class I, BMI 30.0-34.9 (see actual BMI); HTN, goal below 130/80 Allergies Active Allergy Reactions Severity Noted Date Comments Lisinopril Edema face/lips/tongue High 04/05/2018 documented as of this encounter (statuses as of 12/19/2022) Medications Medication Sig Dispensed Refills Start Date [...] 11 12/27/2021 Active FreeStyle Rose Marie 2 [place] Device Test blood sugars four times daily 1 Each 0 12/27/2021 Active Lantus SoloStar 100 UNIT/ML Subcutaneous Solution Pen-injector (Insulin Glargine)Indications :Type 2 diabetes mellitus with hemoglobin A1c goal of less than 8.0% (HCC) Inject under the skin 15 Units before bedtime. 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 Will plan nurse or INH provider telemedicine recheck visit one week to [...] as of this encounter (statuses as of 12/19/2022) Immunizations Name Administration Dates Next Due COVID-19 [...] - Inhaled Oxygen Concentration - - Weight 91.6 kg (201 lb 14.4 oz) 12/19/2022 3:09 PM EST with coat and shoes Height 167.6 cm (5' 6") 12/19/2022 3:09 PM EST Body Mass Index 32.59 12/19/2022 3:09 PM EST documented in this encounter Patient Instructions * Patient Instructions* Dinah Mohamud RDN - 12/19/2022 3:50 PM EST Participant will prime pen before insulin injection. Will contact Dr Maria about a referral to address worsening Neuropathy. documented in this encounter Progress Notes * Dinah Mohamud RDN - 12/19/2022 3:09 PM EST DIABETES SELF-MANAGEMENT TRAINING/FOLLOW UP NOTE Name: Selvin Sebastian Date: 12/19/2022 Participant seen in person, is also present. Last order of DIABETES MANAGEMENT EDUCATION (ADA) REFERRAL was found on 01/09/2022 from Home Visit on 01/09/2022 No order of CLINICAL NUTRITION AND DIABETES EDUCATION ANNUAL RENEWAL is found. Last order of PEDIATRIC DIABETES MANAGEMENT EDUCATION (ADA) REFERRAL OP was found on 05/13/2017 fromOffice Visit on 05/13/[address]? No, request pended Participant scheduled for 1:1 training due to lack of classes scheduled within 2 months of appointment. What diabetes concerns and/or barriers to care would you like to discuss in your appointment: Participant complains of painful fingertips and reddened fingers, and swollen legs. notes his ulcer on his toe has healed. Topics from last visit to attempt to cover today: None Was behavior objective from last visit met at least 80% of the time: Preventing chronic problems: Yes Diabetes Medications: Lantus 15 units in the evening Novolog 5 units before meals Metformin ER 500 mg 2 tablets in AM Monitoring blood glucose, interpreting and using results [...] Estimated Average Glucose 177 (H) <126 mg/dL Results for orders placed or performed in visit on 02/27/21 HEMOGLOBIN A1C Result Value Ref Range Hemoglobin A1C 13.2 (H) 4.0 - 5.6 % Estimated Average Glucose 332 (H) <126 mg/dL Out of target Self-Monitoring Blood Glucose Source of Information: Participant brought meter/CGM-has Freestyle Rose Marie 68-280's Hypoglycemia?: Yes, participant has had 1 episodes in past 1 week. Treats hypoglycemia by: Juice or milk Diet: Breakfast: Rice Chex cereal or pancakes and eggs, coffee Lunch: Vegetable beef or nails or beef barley soup, crackers Supper / Dinner: steak, black coffee, ring bologna and cheese Snacks: Pretzels and cheese Beverages: Water, coffee, root beer Weight management review: Wt Readings from Last 3 Encounters: 12/19/22 91.6 kg (201 lb 14.4 oz) 12/01/22 90.6 kg (199 lb 12.8 oz) 11/17/22 92.5 kg (204 lb) Weight changes since last visit: 23.8 lbs in past 3 months. Lasix dosage increased recently per . Physical Activity: Limited due to balance issues ADA STANDARDS OF CARE/BUNDLE MEASURES Therapy Management Plan: Hypertension: BP Readings from Last 3 Encounters: 12/01/22 120/62 11/17/22 110/64 11/11/22 126/60 At goal/target Taking Metoprolol Dyslipidemia: Lab Results Component Value Date/Time LDL CHOLESTEROL (CALCULATED) - As Seen on TV 56 09/01/2022 02:42 PM LDL CHOLESTEROL (CALCULATED) - As Seen on TV 85 06/04/2016 01:48 PM LDL CHOLESTEROL (DIRECT MEASURE) - As Seen on TV 53 01/11/2018 11:20 AM Results for orders placed or performed in visit on 09/01/22 LIPID PANEL WITH DIRECT LDL IF TG IS HIGH Result Value Ref Range Triglycerides 92 <=174 mg/dL Cholesterol 105 <200 mg/dL HDL Cholesterol 31 (L) >39 mg/dL Non-HDL Cholesterol 74 <=159 mg/dL LDL Cholesterol 56 <=129 mg/dL At goal/target Taking Statin/Antilipemic Kidney function review: ESTIMATED GLOMERULAR FILTRATION RATE - Date Value Ref Range Status 11/20/2022 59 (L) >=60 mL/min Final Comment: eGFR is calculated based on the CKD-EPI 2020 equation 06/01/2020 >60.0 >60 Final Comment: If patient is , multiply estimated GFR by 1.159. 2013 >60.0 >60 mL/min Final ALBUMIN / CREATININE RATIO, URINE - [facility] Date Value Ref Range Status 06/05/2022 140 (H) <30 mg/g Creat Final 03/13/2020 23 <30 mg/g creat Final Comment: Normal: <30 mg/g creatinine High: 30-300 mg/g creatinine Very High: >300 mg/g creatinine Nephrotic: >2200 mg/g creatinine No results found for: PROTEIN/ CREATININE RATIO At goal/target Diabetes Bundle / Standards of Care: Needs kidney function DSMT Follow-up Assessment of Content Areas: Choose [...] review (2) Prevention, detection, and treatment of acute complications: Needs review (2) Prevention, detection, and treatment of chronic complications: Needs review (2) DSMT/ Diabetes MNT intervention: Nutrition: Encouraged participant to decrease intake of foods and fluids with added sugar. He occasionally drinks regular soda, dislikes diet soda. Also notes eating a high-CHO meal before coming to appointment today. His CHO intake continues to vary from meal to meal per 's and his report. Medication: Reviewed participant's med regimen. Notes he did not take his mealtime insulin today before eating his high-CHO meal-meat, potatoes with gravy, and macaroni & cheese. Encouraged him to take meal time insulin 15 minutes before meals. Participant able to demonstrate adequate techniquefor giving insulin. States he rotates sites of injection. Reviewed recommended method of disposal of used needles. Reviewed need of priming pen prior to giving injection. Participant asking why he has a drop of liquid on tip of needle after injecting. Encouraged him to count to 10 before removing needle from skin and to be sure to prime the pen-rationale for doing this reviewed with him. He is ask ing what areas of the body he can inject-reviewed these with him using handout indicated below (Injecting Insulin). Monitoring: Participant able to show me glucose levels from CGM. [place] scanned- resulting glucose 215. He continues to be [facility]-next appointment on February 18. Acute Complications: Briefly reviewed need to treat hypoglycemia with simple CHO's. Encouraged participant to treat hypoglycemia with juice instead of milk. Chronic Complications: Participant is being followed by Cardiology in addition to [facility]. He has an upcoming appointment with Podiatry on December 24-he and are aware. Discussed follow-up with Neurology to address worsening neuropathy symptoms. If next albumin/creatinine ratio is elevated and increasing, he would also benefit from Nephrology referral. Participant Selected Behavioral Objective: Medications: To improve blood glucose levels, I will prime pen before insulin injection. Recommended Medication Changes: None Education materials given to participant/caregiver and reviewed during today's visit: Injecting insulin All [facility] providers within the system are able to see ADA education and outcomes within the participant electronic medical record. Possible Future Topics: Content areas that were not assessed in prior visits: All content areas have been assessed. Time Spent With Patient: Time in: 3:06 PM Time out: 3:54 PM Billing: DSMT: 30 Minutes Plan for Return: 04/20/2023 Participant provided with contact information for Diabetes Care and Pipe Finisher. Dinah Mohamud RDN, NUTRITION SERVICES [facility] Diabetes Care and Pipe Finisher documented in this encounter Plan of Treatment Upcoming Encounters Date Type Specialty Care Team Description 12/24/2022 Office Visit Podiatry Kylie Burroughs, DPM [address] [facility] [place] [address] 12/30/2022 Cardiac Studies Cardiac Studies 01/06/2023 Office Visit Cardiology Shelley Russell PA-C [address] [facility] [place] [address] 02/03/2023 Office Visit [facility] Medicine [facility] [address] 02/18/2023 [facility] [address] 02/18/2023 Pharmacy Pharmacy [facility] [address] [place] [address] 04/20/2023 Nutrition Services Nutrition Services Dinah Moh[facility]ud RDN [facility] [address] 09/11/2023 Office Visit Dermatology Lily Piedra MD [address] [place] [address], [place] [address] Scheduled Procedures Name Priority Associated Diagnoses Date/Ti [...] (HCC)- Primary Dyslipidemia Other and unspecified hyperlipidemia Obesity, Class I, BMI 30.0-34.9 (see actual BMI) Obesity, unspecified HTN, goal below 130/80 Unspecified essential hypertension documented in this encounter Advance Directives Healthcare Agents on File Name Relationship Healthcare Agent [facility] p Communication Farhana Sebastian Spouse Health Care Agent Care Teams Mail Sorter Relationship Specialty Start Date End Date James Maria DO [address] [place] [address] PCP - General Family Medicine 06/07/18 documented as of this encounter
--- OUTSIDE RECORDS SUMMARY | 2023-07-31 19:48 | External Medical Summary | Summary of Care ---
Author Name Unknown Organization [place] [address] Care Team Providers Care Visitor Services Representative Name Role Phone Mejia Maria DO Primary Care Provider Reason for Visit * Reason Comments eRx-Medication Refill Encounter Details Date Type Department Care Team Description 12/28/2022 Refill Family Practice [facility] [address] [place] [id number] Mejia Maria DO [address] [place] [address] Chronic atrial fibrillation (HCC) Allergies Active Allergy Reactions Severity Noted Date Comments Lisinopril Edema face/lips/tongue High 04/05/2018 documented as of this encounter (statuses as of 12/29/2022) Medications Medication Sig Dispensed Refills Start Date [...] 11 2 Active FreeStyle Rose Marie 2 [place] Device Test blood sugars four times daily 1 Each 0 2 Active Lantus SoloStar 100 UNIT/ML Subcutaneous Solution Pen-injector (Insulin Glargine)Indication s:Type 2 diabetes mellitus with hemoglobin A1c goal of less than 8.0% (HCC) Inject under the skin 15 Units before bedtime. 15 mL 3 2 Active Pen [place] 32G X 4 MMIndications:Type 2 diabetes mellitus [...] before bedtime. 180 Tablet 3 3 Active Eliquis 5 MG Oral TabletIndications:C hronic atrial fibrillation (HCC) Take by mouth 1 Tablet in the morning AND 1 Tablet before bedtime. 180 Tablet 3 2 12/29/19 23 Discontinued documented as of this encounter (statuses as of 12/29/2022) Active Problems Problem Noted Date Nonrheumatic aortic [...] with fat layer exposed 01/09/2022 Atherosclerosis of [place] coronary arter y without angina pectoris [...] as of this encounter (statuses as of 12/29/2022) Resolved Problems Problem Noted Date Resolved Date [...] as of this encounter (statuses as of 12/29/2022) Immunizations Name Administration Dates Next Due COVID-19 [...] Telephone Encounter - Mejia Maria DO - 12/29/2022 1:08 PM ESTSigned Prescriptions: Disp Refills Eliquis 5 MG Oral Tablet 180 Ta*3 Sig: Take 1 Tablet by mouth in the morning and 1 Tablet before bedtime. Authorizing Provider: MEJIA MARIA * Telephone Encounter - Beverly Storey LPN - 12/29/2022 12:10 PM EST Pending Prescriptions: Disp Refills Eliquis 5 MG Oral Tablet [Pharmacy Med Na*180 Ta*3 Sig: TAKE ONE TABLET BY MOUTH TWICE A DAY Last Visit: 11/11/2022 (in office), Visit date not found (telemedicine) Next Visit: 02/03/2023 Last date the medication was ordered: 12.25.2021 Pt only has a couple days left of the medication. Patient Active Problem List Diagnosis Code Mixed [...] [facility]) E11.621, L97.512 Atherosclerosis of [place] co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 angina pectoris I25.10 Hoarding behavior F42.3 Paroxysmal atrial fibrillation ([facility]) I48.0 Moderate aortic stenosis I35.0 Overweight (BMI 25.0-29.9) E66.3 Puncture wound of right foot S91.331A Unsteady gait when walking R26.81 Heart failure ([facility]) I50.9 Cellulitis of toe of left foot L03.032 Nonrheumatic aortic valve stenosis I35.0 Labs: Lab Results Component Value Date/Time CREATININE - [facility] 1.3 (H) 11/20/2022 11:57 AM CREATININE - [facility] 1.1 06/01/2020 03:18 PM CREATININE, RANDOM URINE - [facility] 29 06/05/2022 02:59 PM CREATININE, RANDOM URINE - [facility] 113 03/13/2020 01:44 PM CREATININE-OUTSIDE LAB 1.32 11/08/2021 12:00 AM Lab Results Component Value Date/Time POTASSIUM - [facility] 4.3 11/20/2022 11:57 AM POTASSIUM - [facility] 4.5 06/01/2020 03:18 [...] Component Value Date/Time HEMOGLOBIN A1C - [facility] 9.0 (H) 09/01/2022 02:42 PM HEMOGLOBIN A1C - [facility] 7.8 (H) 05/21/2022 04:49 PM HEMOGLOBIN A1C - [facility] 13.2 (H) 02/27/2021 11:24 AM HEMOGLOBIN A1C - [facility] 7.4 (H) 03/13/2020 09:26 AM HEMOGLOBIN A1C - [facility] 11.5 (H) 11/16/2019 08:37 AM HEMOGLOBIN A1C - [facility] 14.3 (H) 12/13/2018 03:03 PM documented in this encounter Plan of Treatment Upcoming Encounters Date Type Specialty Care Team Description 12/30/2022 Cardiac Studies Cardiac Studies 01/06/2023 Office Visit Cardiology Shelley Russell PA-C [address] [place] [address] 01/27/2023 Laboratory Laboratory [address] [place] [address] 02/03/2023 Office Visit Family Medicine Mejia Maria DO [address] [place] [address] 02/18/2023 Office Visit Pharmacy [facility] [address] [place] [address] 02/18/2023 Pharmacy [facility] [place] [address] 03/23/2023 Office Visit Podiatry Kylie Burroughs DPM [address] [place] [address] [place] [address] 04/20/2023 Nutrition Services Nutrition Services Dinah Mohamud RDN [address] [place] [address] 09/11/2023 Office Visit Dermatology Lily Piedra MD [address] [place] [address] Scheduled Procedures Name Priority Associated Diagnoses Date/Ti [...] File Name Relationship [facility] Farhana Sebastian Spouse Health Care Agent Care Teams Visitor Services Representative Relationship Specialty Start Date End Date Mejia Maria DO 132 [facility] [place] [address] PCP - General Family Medicine 06/07/18 documented as of this encounter
--- OUTSIDE RECORDS SUMMARY | 2023-07-31 19:48 | External Medical Summary | Summary of Care ---
Author Name Unknown Organization [place] [address] Care Team Providers Care Lane Marker Installer Name Role Phone Rylan Mariar Sophy Primary Care Provider Reason for Referral * Evaluate & Treat - Unlimited Visits (Within 3 days (urgent)) - Authorized Specialty Diagnoses / Procedures Referred By Contac t Referred To Contact Dietitian Diagnoses Type 2 diabetes mellitus with hemoglobin A1c goal of less than 8.0% ([facility]) Dinah Mohamud RDN [address] [place] [address] Referral ID Status Reason Start Date Expiration Date Visits Requested Visits Authorized [id number] Authorized Specialty Services Required 12/22/[phone] Question Answer Referral Priority Within 3 days (urgent) Comments This referral/annual renewal order is for Medical Nutrition Therapy (MNT) or Diabetes Self-Management Training (DSMT). MNT is provided by a Registered Dietitian Reading Specialist. MNT is an evidence-based medical approach to treating certain chronic conditions through the use of an individually-tailored nutrition, lifestyle changes and behavior modification plan. Diabetes Self-Management Training (DSMT) is provided by a recognized [place] [employer] (ADA) elementary educator: Nurse (RN), Registered Dietitian Reading Specialist (RDN), and/or Diabetes Medical Nutrition Therapy (MNT) Management (dietitian only). Diabetes educators are responsible for assessing the participant's diabetes education needs, and providing diabetes self-management training in accordance with the standards set by the ADA for DSMT. Any adjustment in diabetes therapy will be made within the guidelines of standards of practice and [facility] approved policies and procedures. I understand that the elementary educator will keep me informed. Areas of [...] Visit * Reason Onset Date Comments Referral 12/19/2022 Encounter Details Date Type Department Care Team Description 12/19/2022 Telephone Erica Rico [address] [place] [address] Dinah Mohamud RDN [address] [place] [address] Referral Allergies Active Allergy Reactions Severity Noted Date Comments Lisinopril Edema face/lips/tongue High 04/05/2018 documented as of this encounter (statuses as of 12/22/2022) Medications Medication Sig Dispensed Refills Start Date [...] 11 12/27/2021 Active FreeStyle Rose Marie 2 [place] Device Test blood sugars four times daily 1 Each 0 12/27/2021 Active Lantus SoloStar 100 UNIT/ML Subcutaneous Solution Pen-injector (Insulin Glargine)Indications :Type 2 diabetes mellitus with hemoglobin A1c goal of less than 8.0% (HCC) Inject under the skin 15 Units before bedtime. 15 mL 3 01/06/2022 Active Pen [place] 32G X 4 MMIndications:Type 2 diabetes mellitus [...] as of this encounter (statuses as of 12/22/2022) Active Problems Problem Noted Date Nonrheumatic aortic [...] with fat layer exposed 01/09/2022 Atherosclerosis of [place] coronary arter y without angina pectoris 01/09/2022 [...] as of this encounter (statuses as of 12/22/2022) Resolved Problems Problem Noted Date Resolved Date [...] as of this encounter (statuses as of 12/22/2022) Immunizations Name Administration Dates Next Due COVID-19 [...] encounter Miscellaneous Notes * Telephone Encounter - Dinah Mohamud RDN - 12/19/2022 8:08 PM EST Due to new calendar year, need current ADA Liquid Sugar Melter referral. Please sign pended order. Thank you. Dinah Mohamud RDN, Clinical Dietitian II, [facility] Clinical Nutrition Services [facility] [address] [place] [address] Available via [employer] St[employer] Portal documented in this encounter Plan of Treatment Upcoming Encounters Date Type Specialty Care Team Description 12/24/2022 Office Visit Podiatry Kylie Burroughs, DPMarga [address] [facility] [place] [address] 12/30/2022 Cardiac Studies Cardiac Studies 01/06/2023 Office Visit Cardiology Shelley Russell PA-C [address] [place] [address] 02/03/2023 Office Visit Family Medicine James Maria DO [address] [place] [address] 02/18/2023 [facility] [address] [place] [address] 02/18/2023 [facility] [address] [place] [address] 04/20/2023 Nutrition Services Nutrition Services Dinah Mohamud RDN [address] [place] [address] 09/11/2023 Office Visit Dermatology VanLily mills MD [address] [facility] [place] [address] Scheduled Procedures Name Priority Associated Diagnoses Date/Ti me COLONOSCOPY FLEXIBLE PROXIMA L DIAGNOSTIC Recall Encounter for screening colonoscopy Scheduled Referrals Name Type Priority Associated Diagnoses Orde r Schedule CLINICAL NUTRITION AND DIABETES EDUCATION ANNUAL RENEWAL Referral Within 3 days (urgent) Type 2 diabetes mellitus with hemoglobin A1c goal of less than 8.0% (HCC) Ordered: 12/22/2022 Health Maintenance Due Date Last Done Comments [...] Agents on File Name Relationship Healthcare Agent [facility] p Communication Farhana Sebastian Spouse Health Care Agent Care Teams Lane Marker Installer Relationship Specialty Start Date End Date James Maria DO 132 [facility] [place] [address] PCP - General Family Medicine 06/07/18 documented as of this encounter
--- OUTSIDE RECORDS SUMMARY | 2023-07-31 19:48 | External Medical Summary | Summary of Care ---
Author Name Unknown Organization [place] [address] Care Team Providers Care Living Supervisor Name Role Phone Rylan Mariar Sophy Primary Care Provider Reason for Visit * Reason Onset Date Comments Appointment 12/17/2022 Encounter Details Date Type Department Care Team Description 12/17/2022 Telephone [facility] [address] [facility] [place] [address] Services, Scheduling [address] [place] [address] Appointment (///) Allergies Active Allergy Reactions Severity Noted Date [...] 11 12/27/2021 Active FreeStyle Rose Marie 2 [place] Device Test blood sugars four times daily 1 Each 0 12/27/2021 Active Lantus SoloStar 100 UNIT/ML Subcutaneous Solution Pen-injector (Insulin Glargine)Indications :Type 2 diabetes mellitus with hemoglobin A1c goal of less than 8.0% (HCC) Inject under the skin 15 Units before bedtime. 15 mL 3 01/06/2022 Active Pen [place] 32G X 4 MMIndications:Type 2 diabetes mellitus [...] with fat layer exposed 01/09/2022 Atherosclerosis of [place] coronary arter y without angina pectoris 01/09/2022 [...] Miscellaneous Notes * Telephone Encounter - MICHEL Devries - 12/17/2022 3:53 PM EST Per Request to call [employer] at [phone] and have fax request for rose marie supply to PCP for approval... Called [employer] and lmom to advised to fax over request to PCP. documented in this encounter Plan of Treatment Upcoming Encounters Date Type Specialty Care Team Description 12/19/2022 Nutrition Services Nutrition Services Dinah Mohamud RDN [address] [place] [address] 12/24/2022 Office Visit Podiatry [facility]ylie [facility]roughs DPM [facility] [address] 12/30/2022 Cardiac Studies Cardiac Studies 01/06/2023 Office Visit Cardiology Shelley Russell PA-C [address] [place] [address] 02/03/2023 Office Visit Family Medicine James Maria DO [address] [place] [address] 02/18/2023 Office Visit Pharmacy [facility] [address] [place] [address] 02/18/2023 Pharmacy [facility] [address] [place] [address] 09/11/2023 Office Visit Dermatology Lily Piedra MD [address] [place] [address], [place] [address] Scheduled Procedures Name Priority Associated Diagnoses Date/Ti [...] File Name Relationship Healthcare Agent [facility] p Communication Farhana Sebastian Spouse Health Care Agent Care Teams Living Supervisor Relationship Specialty Start Date End Date James Maria DO [address] [place] [address] PCP - General Family Medicine 06/07/18 documented as of this encounter
--- OUTSIDE RECORDS SUMMARY | 2023-07-31 19:48 | External Medical Summary | Summary of Care ---
Author Name Unknown Organization [place] [address] Care Team Providers Care Aerospace Mechanic Name Role Phone James Maria Primary Care Provider Reason for Visit * Reason Comments Diabetic Foot Care Encounter Details Date Type Department Care Team Description 12/24/2022 Office Visit Podiatry [facility] 132 [facility] [place] [id number] Kylie Burroughs, DPMarga 400 [facility] [place] [id number] DM type 2 with diabetic peripheral [...] 11 12/27/2021 Active FreeStyle Rose Marie 2 [place] Device Test blood sugars four times daily [...] this encounter Progress Notes * Kylie Burroughs, DPM - 12/24/2022 2:00 PM EST Podiatry Established Note [facility] Name: Selvin Sebastian : 1945 Date: 12/24/2022 REASON FOR VISIT: diabetic foot care SUBJECTIVE: This patient is a 77 year old male who presents today accompanied by his . He is very hard of hearing and she helps communicate. 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 He is unable totrim his toenails which are elongated, thickened. He has compression wraps to the legs. reports wounds are nearly healed and they have one appointment with [facility] wound care coming up. 06/05/22 was last visit with PCP James Maria [...] Otitis media 2004 Overweight (BMI 25.0-29.9) 05/22/2022 Sensorineural hearing loss, unilateral 2003 left ALLERGIES: Review of patient's allergies indicates: Allergen Reactions Lisinopril Edema face/lips/tongue REVIEW OF SYSTEMS: CONSTITUTIONAL: No change in weight, No fatigue and No fevers, sweats, or chills FOCUSED PODIATRIC EXAM: Vascular: Pedal pulses not assessed due to compression wraps. Capillary refill time is within normal limits to all toes. No warmth. Neurologic: Sensation (light touch) intact to the bilateral lower extremities. No hypersensitivity. No weakness. No tremor. Musculoskeletal: He denies pain with palpation of [...] used to remove all incurvating edges. A tobacco cutter wasused to trim nail to appropriate length. An electrical bur was used in a side to side motion to reduce nail thickness, hypertrophic growth, and to smooth all edges. Patient tolerated well. They noted improvement following procedure. Follow up: 3 months documented in this encounter Nursing Notes * Celeste Huber LPN - 12/24/2022 1:46 PM EST Pt presents with his for diabetic nail care, no pain in feet. States BSG 'was high' today. documented in this encounter Plan of Treatment Upcoming Encounters Date Type Specialty Care Team Description 12/24/2022 Nutrition Services Nutrition Services Dinah Mohamud RDN 132 [place] [address] Arrived 12/30/2022 Cardiac Studies Cardiac Studies 01/06/2023 Office Visit Cardiology Shelley Russell PA-C [address] [place] [address] 02/03/2023 Office Visit Family Medicine James Maria DO [address] [place] [address] 02/18/2023 Office Visit Pharmacy [facility] [address] [place] [address] 02/18/2023 Pharmacy Pharmacy [facility] [address] [place] [address] 03/23/2023 Office Visit Podiatry Kylie Burroughs DPM [address] [place] [address] [place] [address] 04/20/2023 Nutrition Services Nutrition Services Dinah Mohamud RDN [address] [place] [address] 09/11/2023 Office Visit Dermatology Lily Piedra MD [address] [place] [address] Scheduled Procedures Name Priority Associated Diagnoses Date/Ti [...] Sebastian Spouse Health Care Agent Care Teams Aerospace Mechanic Relationship Specialty Start Date End Date James Maria DO [address] [place] [address] PCP - General Family Medicine 06/07/18 documented as of this encounter
--- OUTSIDE RECORDS SUMMARY | 2023-07-31 19:48 | External Medical Summary | Summary of Care ---
Author Name Unknown Organization [facility] [place] [address] Care Team Providers Care Meat Manager Name Role Phone James Maria Primary Care Provider Encounter Details Date Type Department Care Team Description 11/20/2022 Telephone [facility] [place] 132 [facility] [place] [address] Wendy Cisneros CRNP 132 [place] [address] Allergies Active Allergy Reactions Severity Noted Date Comments Lisinopril Edema face/lips/tongue High 04/05/2018 documented as of this encounter (statuses as of 11/20/2022) Medications Medication Sig Dispensed Refills Start Date [...] Erectile Dysfunction. 5 Tab 6 08/24/2017 Active Additional Information Patient not taking.Informant: Spouse, Reported on 11/11/2022 Glucose Blood (ONETOUCH VERIO) STRP Use up to 4 times a day E11.9 300 Strip 3 08/24/2017 Active Additional Information Patient not taking.Informant: Spouse, [...] 12/27/2021 Active FreeStyle Rose Marie 2 [place] Device Test blood sugars four times daily 1 Each 0 12/27/2021 Active Lantus SoloStar 100 UNIT/ML Subcutaneous Solution Pen-injector (Insulin Glargine)Indications :Type 2 diabetes mellitus with hemoglobin A1c goal of less than 8.0% (HCC) Inject under the skin 15 Units before bedtime. 15 mL 3 01/06/2022 Active Pen [place] 32G X 4 MMIndications:Type 2 diabetes mellitus [...] as of this encounter (statuses as of 11/20/2022) Active Problems Problem Noted Date Heart failure 06/05/2022 Cellulitis of toe of [...] with fat layer exposed 01/09/2022 Atherosclerosis of [place] coronary arter y without angina pectoris 01/09/2022 [...] as of this encounter (statuses as of 11/20/2022) Resolved Problems Problem Noted Date Resolved Date [...] as of this encounter (statuses as of 11/20/2022) Immunizations Name Administration Dates Next Due COVID-19 [...] * Telephone Encounter - BARTOLO Bentley - 11/20/2022 12:10 PM EST Pt is no longer followed by [facility]. Received fax for his diabetic supplies. Faxing to Jayla Spence to forward to PCP to address. documented in this encounter Plan of Treatment Upcoming Encounters Date Type Specialty Care Team Description 12/01/2022 Office Visit Cardiology Shelley Russell PA-C [address] [place] [address] 12/10/2022 Office Visit Cardiology Del Díaz Jr., DO [address] [place] [address] 12/19/2022 Nutrition Services Nutrition Services Dinah Mohamud, ALFIE [address] [place] [address] 12/24/2022 Office Visit Podiatry Kylie Burroughs, REMEDIOS [address] [place] [address] [place] [address] 12/30/2022 Cardiac Studies Cardiac Studies 02/03/2023 Office Visit Family Medicine James Maria, DO [address] [place] [address] 02/18/2023 Office Visit Pharmacy [facility] [address] [place] [address] 02/18/2023 Pharmacy Pharmacy [facility] [place] [address] 09/11/2023 Office Visit Dermatology [facility]ied[facility] [address] [facility] [address] Scheduled Procedures Name Priority Associated Diagnoses Date/Ti [...] 09/01/2022, 11/02, 01/11/2018 GFR - Renal Function 11/14/2023 11/14/2022, 09/01/2022, 05/21/2022, Additional history exists Pneumococcal Vaccine: 65+ Years [...] Sebastian Spouse Health Care Agent Care Teams Meat Manager Relationship Specialty Start Date End Date James Maria DO 132 [facility] [place] [address] PCP - General Family Medicine 06/07/18 documented as of this encounter
--- OUTSIDE RECORDS SUMMARY | 2023-07-31 19:49 | External Medical Summary | Summary of Care ---
Author Name Unknown Organization [place] [address] Care Team Providers Care Home Health Lvn Name Role Phone James Maria Primary Care Provider Reason for Visit * Reason Comments Dosage Adjustment In Person (Anticoag Cl inic) Diabetes Follow-Up Encounter Details Date Type Department Care Team Description 09/22/2022 Office Visit Pharmacy, [facility] 132 [facility] [place] [address] [facility] [address] Type 2 diabetes mellitus with hemoglobin A1c goal of less than 8.0% ([facility])* Allergies Active Allergy Reactions Severity Noted Date Comments Lisinopril Edema face/lips/tongue High 04/05/2018 documented as of this encounter (statuses as of 09/22/2022) Medications Medication Sig Dispensed Refills Start Date End Date Status ONETOUCH ULTRA BLUE STRP USE TO CHECK GLUCOSE 4 TIMES DAILY 100 Strip 0 11/13/2016 Active Additional Information Patient not taking.Reported on 06/23/2022 ONETOUCH DELICA LANCETS 33G MISC USE ONE TO CHECK GLUCOSE 4 TIMES DAILY 100 Each 0 11/13/2016 Active Additional Information Patient not taking.Reported on 06/23/2022 Sildenafil Citrate (VIAGRA) 50 MG TabletIndications:Im potence of organic origin Take 1 Tab by mouth as needed for Erectile Dysfunction. 5 Tab 6 08/24/2017 Active Glucose Blood (ONETOUCH VERIO) STRP Use up to 4 times a day E11.9 300 Strip 3 08/24/2017 Active Additional Information Patient not taking.Reported on 06/23/2022 Fluorouracil 5 % External Cream (Efudex) Apply [...] Patient taking differently:5 mg Oral BID(AM/PM),Indications: afib, Reported on 06/23/2022 metFORMIN HCl ER 500 MG Oral Tablet [...] 11 12/27/2021 Active FreeStyle Rose Marie 2 [place] Device Test blood sugars four times daily 1 Each 0 12/27/2021 Active Lantus SoloStar 100 UNIT/ML Subcutaneous Solution Pen-injector (Insulin Glargine)Indications :Type 2 diabetes mellitus with hemoglobin A1c goal of less than 8.0% (HCC) Inject under the skin 15 Units before bedtime. 15 mL 3 01/06/2022 Active Pen [place] 32G X 4 MMIndications:Type 2 diabetes mellitus [...] 2 04/11/2022 Active Insulin Aspart 100 UNIT/ML Subcutaneous Solution 5 Units . Pt takes 5 to 6 units before meals 0 05/16/2022 Active Furosemide 40 MG Oral Tablet (Lasix)Indications:C hronic atrial fibrillation (HCC) Take by mouth 1 Tablet in the morning. 90 Tablet 3 06/05/2022 Active Additional Information Patient taking differently:40 mg OralDAILY PRN, Other, edema, Reported on 06/23/2022 Atorvastatin Calcium 40 MG Oral Tablet (Lipitor)Indications :cholesterol Take by mouth 1 Tablet in the morning. 90 Tablet 1 06/27/2022 Active Silver sulfADIAZINE 1 % External Cream (Silvadene) Apply to sores on hands 3 times daily until healed 50 g 3 08/27/2022 Active documented as of this encounter (statuses as of 09/22/2022) Active Problems Problem Noted Date Heart failure [...] as of this encounter (statuses as of 09/22/2022) Resolved Problems Problem Noted Date Resolved Date [...] as of this encounter (statuses as of 09/22/2022) Immunizations Name Administration Dates Next Due COVID-19 [...] as of this encounter Progress Notes * Russel Clark, [facility] - 09/22/2022 11:36 AM EST Medication Therapy [facility] - Diabetes Management Progress Note Selvin Sebastian, identified by name and date of , is a 77 year old male being seen for diabetes management/education. Patient presents for return diabetic visit. DIABETES: Pertinent Interval History: Patient has been experiencing sensor difficulties with Rose Marie, no data from 09/09 to 09/20. Patient admits he has not been taking insulin due to not knowing what BG is. Did not perform BG fingerstick, wants to avoid because of many finger blisters/scabs. Current diabetic medications: Lantus 20 units QHS Humalog 5 untis with meals-usually just with breakfast Metformin ER 500 mg 2 tabs AM Medication Injection Site: Abdomen Lifestyle: Diet: unchanged Glucose Review/SMBG: Readings obtained from patient device Could not perform Rose Marie download so I reviewed Rose Marie device directly. Confirmed no data from 09/09 to 09/20. Sensor now working with readings almost all > 250, some "HI" (>500). Hypoglycemia: Does your blood sugar go below 70 mg/dL? No Hyperglycemia symptoms present: none Recent Labs Units 09/01/22 1442 05/21/22 1649 02/27/21 1124 HEMOGLOBIN A1C - [facility] % 9.0* 7.8* 13.2* Recent Labs Units 09/01/22 1442 05/21/22 1649 11/08/21 0000 ESTIMATED GLOMERULAR FILTRATION RATE - [facility] mL/min 71 81 -- EGFR-OUTSIDE LAB ML/MIN -- -- 52.0 CREATININE - [facility] mg/dL 1.1 1.0 -- CREATININE-OUTSIDE LAB MG/DL -- -- 1.32 HYPERTENSION: Patient on ACEi/ARB: no, allergy history BP Readings from Last 3 Encounters: 08/05/22 118/62 06/27/22 96/74 06/05/22 108/54 Blood pressure at goal: yes HYPERLIPIDEMIA: Patient is taking moderate or high intensity statin: yes HEALTH MAINTENANCE REVIEW: Health Maintenance Due Topic Date Due Hepatitis B (1 of 3 - 3-dose series) Never done Depression Screening, Annual for Pts 12 and Over 11/21/2020 DTaP,Tdap,and Td Vaccines (2 - Td or Tdap) 10/21/2021 COVID-19 Vaccine (4 - Booster for Moderna series) 04/22/2022 ASSESSMENT & PLAN: ICD-10-CM 1. Type 2 diabetes mellitus with hemoglobin A1c goal of less than 8.0% ([facility]) E11.9 BG Readings - Blood sugars uncontrolled. LibreView download failed. I looked through Rose Marie device to find no readings before 09/09 and 09/20. In the last few days, all readings generally > 250 mg/dl with some undetectably high (>500 mg/dl for rose marie). Patient admits he has not been taking insulin due to having issues with sensor (working now). Encouraged patient to (1) call rose marie customer service for any sensor/device malfunctions (provided number), and (2) to check BG with fingerstick if rose marie is not working. Of note, BG was controlled at previous visit on the prescribed regimen. Medications - Reviewed current regimen, patient is not adherent to regimen. Patient has been avoiding insulin use (both short and long acting) for last couple weeks due to fear of not knowing BG. Emphasized extreme importance to patient and his of him not foregoing insulin like this, as reflecting in his current readings > 500 mg/dl. Diet, Exercise, Lifestyle - No significant lifestyle changes since last visit. Patient is agreeable to Rose Marie Patient aware to contact clinic if any hypoglycemia before next visit. MEDICATION CHANGES: Resume Insulin as prescribed Diabetic Medications: Lantus 20 units QHS Humalog 5 untis with meals-usually just with breakfast Metformin ER 500 mg 2 tabs AM HEALTH MAINTENANCE INTERVENTIONS: Labs: Up to Date Immunizations: Due for Hep B, Tdap Foot Exam: Up to Date Eye Exam: Up to Date Annual Wellness Visit: Due - schedule at next visit FOLLOW UP: Return to clinic in 8 weeks 11/17/2022 Russel Clark [facility] Clinical Pharmacist - Drop Hammer Operator Helper Medication Therapy Management Clinic 09/22/2022, 11:36 AM documented in this encounter Plan of Treatment Upcoming Encounters Date Type Specialty Care Team Description 11/17/2022 Office Visit Pharmacy [facility] [address] [place] [address] 12/10/2022 Office Visit Cardiology Del Díaz Jr., DO [address] [place] [address] 12/24/2022 Office Visit Podiatry Kylie Burroughs DPM [address] [place] [address] [place] [address] 02/03/2023 Office Visit Family Medicine James Maria, 132 [place] [address] 09/11/2023 Office Visit Dermatology Lily Piedra MD 200 [place] [address] Scheduled Procedures Name Priority Associated Diagnoses Date/Ti me COLONOSCOPY FLEXIBLE PROXIMA L DIAGNOSTIC Recall Encounter for screening colonoscopy Health Maintenance Due Date Last Done Comments Hepatitis B (1 of 3 - 3-dose series) 1945 Depression Screening, Annual for Pts 12 and Over 11/21/2020 11/21/2019 DTaP,Tdap,and Td Vaccines (2 - Td or Tdap) 10/21/2021 10/21/2011, 11/09/2003 COVID-19 Vaccine (4 - Booster for Moderna series) 04/22/2022 02/25/2022, 03/24/2021, 02/22/2021 DIABETES-HGBA1C EVERY 6 MONTHS 03/01/2023 09/01/2022, 05/21/2022, 02/27/2021, Additional history exists Alb / Creat Ratio 06/05/2023 06/05/2022, , 12/13/2018, Additional history exists DIABETES-EYE EXAM 09/01/2023 09/01/2022, , 12/15/2019, Additional history exists DIABETES-FOOT EXAM 09/01/2023 09/01/2022, 0 02/28/2021, 10/13/2019, Additional history exists GFR - Renal Function 09/01/2023 09/01/2022, 05/21/2022, 11/08/2021, Additional history exists Yearly B-12 09/01/2023 09/01/2022, 11/02, 01/11/2018 Pneumococcal Vaccine: 65+ Years Completed 12/24/2015, 07/23/2011 Zoster Vaccines Completed 03/13/2020, 11/03, 08/03/2012 Influenza Vaccine (FLU shot) Completed 01/2022, 08/10/2021, 08/03/2020, Additional history exists GARDASIL-HPV IMMUNIZATION SERIES Aged [...] than 8.0% ([facility])- Primary documented in this encounter Advance Directives Healthcare Agents on File Name Relationship Healthcare Agent [facility] Farhana Sebastian Spouse Health Care Agent Care Teams Home Health Lvn Relationship Specialty Start Date End Date James Maria DO [address] [place] [address] PCP - General Family Medicine 06/07/18 documented as of this encounter
--- OUTSIDE RECORDS SUMMARY | 2023-07-31 19:49 | External Medical Summary | Summary of Care ---
Author Name Unknown Organization [place] [address] Care Team Providers Care Precipitate Washer Name Role Phone James Maria Primary Care Provider Encounter Details Date Type Department Care Team Description 09/19/2022 Office Visit Podiatry [facility] 132 [facility] [place] [id number] Kylie Burroughs, DPMarga [address] [facility] [phone] Onychomycosis*; Corns and callosities; DM type 2 with diabetic peripheral neuropathy (HCC) Allergies Active Allergy Reactions Severity Noted Date Comments Lisinopril Edema face/lips/tongue High 04/05/2018 documented as of this encounter (statuses as of 09/19/2022) Medications Medication Sig Dispensed Refills Start Date [...] 11 12/27/2021 Active FreeStyle Rose Marie 2 [place] Device Test blood sugars four times daily 1 Each 0 12/27/2021 Active Lantus SoloStar 100 UNIT/ML Subcutaneous Solution Pen-injector (Insulin Glargine)Indications :Type 2 diabetes mellitus with hemoglobin A1c goal of less than 8.0% (HCC) Inject under the skin 15 Units before bedtime. 15 mL 3 01/06/2022 Active Pen [place] 32G X 4 MMIndications:Type 2 diabetes mellitus [...] as of this encounter (statuses as of 09/19/2022) Active Problems Problem Noted Date Heart failure [...] as of this encounter (statuses as of 09/19/2022) Resolved Problems Problem Noted Date Resolved Date [...] as of this encounter (statuses as of 09/19/2022) Immunizations Name Administration Dates Next Due COVID-19 [...] of this encounter Progress Notes * Kylie Palmersh, REMEDIOS - 09/19/2022 1:54 PM EST Podiatry Established Note [facility] Name: Selvin Sebastian : 1945 Date: 09/19/2022 REASON FOR VISIT: diabetic foot care SUBJECTIVE: This patient is a 77 year old male who presents today accompanied by his . He is very hard of hearing and she helps communicate. 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 He has no open wounds. They report being discharged from [facility] wound care. 06/05/22 was last visit with PCP James [...] fatigue and No fevers, sweats, or chills EXTREMITIES: No pain, redness or swelling on the joints SKIN/INTEGUMENTARY: No rash and No itching, + Eschars to both legs FOCUSED PODIATRIC EXAM: Vascular: Pedal pulses palpable including dorsalis pedis and posterior tibial artery at 2/4 bilaterally. Capillary refill time is within normal limits to all toes. Non pitting edema noted to both legs. No warmth. Neurologic: Sensation (light touch) intact to the bilateral lower extremities. No hypersensitivity. No weakness. No tremor. Musculoskeletal: He denies pain with palpation of either foot. Dermatological: Toenails 1-5 bilaterally are thickened and elongated as well as discolored. No interdigital changes. Hyperkeratotic skin to the dorsal aspect of the left third toe. Chronic appearing discoloration tofeet/legs. Class Findings for Routine Foot Care Class A Findings: None Class B Findings: Advanced trophic changes (at least three of the following): hair growth (decreaseor absence), nail changes (thickening) and pigmentary changes (discoloration) Class C Findings: Edema and Paresthesia (abnormal spontaneous sensations in feet) Modifier: Q9 - 1 Class B Finding and 2 Class C Findings DIAGNOSTIC STUDIES: None ASSESSMENT: 1. Onychomycosis TA T1 T2 T3 T4 T5 T6 T7 T8 T9 2. Corns and callosities x 1 left third toe 3. DM type 2 with diabetic peripheral neuropathy (HCC) PLAN: Procedure: After mild cleansing and drying of feet, toenails 1-5 bilaterally were manually and mechanically debrided without incident. A nail splitter was used to remove all incurvating edges. A hand nailer was used to trim nail to appropriate length. An electrical bur was used in a side to side motion to reduce nail thickness, hypertrophic growth, and to smooth all edges. Patient tolerated well. They noted improvement following procedure. Procedure: After prepping the area with alcohol and allowing to dry, the hyperkeratotic lesion to the left third toe was sharply pared of all hyperkeratotic skin without incident. This was performed with a #15 blade. An electrical umbrella bur was used to reduce any remaining edges. Patient tolerated well andnoted improvement following procedure. Follow up: 3 months documented in this encounter Nursing Notes * Celeste Huber LPN - 09/19/2022 1:51 PM EST Pt presents with his for diabetic nail care, no pain in feet. Has a Rose Marie, states his sensor came out, has not replaced it yet; so did not check BSG today. documented in this encounter Plan of Treatment Upcoming Encounters Date Type Specialty Care Team Description 09/22/2022 Office Visit [facility]acy [facility] [address] [place] [address] 12/10/2022 Office Visit Cardiology Del Díaz Jr., [address] [place] [address] 12/24/2022 Office Visit Podiatry Kylie Burroughs DPM [address] [place], [place] [address] [address] 02/03/2023 Office Visit Family Medicine James Maria, [address] [place] [address] 09/11/2023 Office Visit Dermatology Lily Piedra MD 200 [place] [address] Scheduled Procedures Name Priority Associated Diagnoses Date/Ti [...] as of this encounter Visit Diagnoses Diagnosis Onychomycosis- Primary Dermatophytosis of nail Corns and callosities DM type 2 with diabetic peripheral neuropathy (HCC) Type II or unspecified type diabetes mellitus with neurological manifestations, not stated as uncontrolled documented in this encounter Advance Directives Healthcare Agents on File Name Relationship Healthcare Agent [facility] jj Sebastian Spouse Health Care Agent Care Teams Precipitate Washer Relationship Specialty Start Date End Date James Maria DO [address] [place] [address] PCP - General Family Medicine 06/07/18 documented as of this encounter
--- OUTSIDE RECORDS SUMMARY | 2023-07-31 19:49 | External Medical Summary ---
Author Name Unknown Address Unknown Organization K01:[facility] [address] [place] [address] Laboratory Report Ordering Provider Test Date Status JULIEN QUIROS 11/20/2022 11:57:56 Final Observation Date Value Abnormality Reference (Units ) Status BUN 11/20/2022 11:57:56 22 Above high normal 6-20 (mg/dL) Final Creatinine 11/20/2022 11:57:56 1.3 Above high normal 0.6-1.2 (mg/dL) Final Glomerular filtration rate/1.73 sq M.predicted [Volume Rate/Area] in Serum, Plasma or Blood by Creatinine-based formula (CKD-EPI) 11/20/2022 11:57:56 59 Below low normal >=60 (mL/min) Final Performing Location [facility] [place] - [address] [place] [address]
--- OUTSIDE RECORDS SUMMARY | 2023-07-31 19:49 | External Medical Summary | Summary of Care ---
Author Name Unknown Organization [place] [address] Care Team Providers Care Principal Product Manager Name Role Phone James Maria Primary Care Provider Reason for Visit * Reason Comments Dosage Adjustment In Person (Anticoag Cl inic) Diabetes Follow-Up Encounter Details Date Type Department Care Team Description 11/17/2022 Office Visit Pharmacy, [facility] [address] [facility] [place] [address] [facility] 132 [facility] [place] [address] Type 2 diabetes mellitus with hemoglobin A1c goal of less than 8.0% ([facility])* Allergies Active Allergy Reactions Severity Noted Date Comments Lisinopril Edema face/lips/tongue High 04/05/2018 documented as of this encounter (statuses as of 11/17/2022) Medications Medication Sig Dispensed Refills Start Date End Date Status ONETOUCH ULTRA BLUE STRP USE TO CHECK GLUCOSE 4 TIMES DAILY 100 Strip 0 11/13/2016 Active Additional Information Patient not taking.Informant: Spouse, Reported on 11/11/2022 ONETOUCH DELICA LANCETS 33G MISC USE ONE TO CHECK GLUCOSE 4 TIMES DAILY 100 Each 0 11/13/2016 Active Additional Information Patient not taking.Informant: Spouse, Reported on 11/11/2022 Sildenafil Citrate (VIAGRA) 50 MG TabletIndications:Im potence [...] 11 12/27/2021 Active FreeStyle Rose Marie 2 [place] Device Test blood sugars four times daily 1 Each 0 12/27/2021 Active Lantus SoloStar 100 UNIT/ML Subcutaneous Solution Pen-injector (Insulin Glargine)Indications :Type 2 diabetes mellitus with hemoglobin A1c goal of less than 8.0% (HCC) Inject under the skin 15 Units before bedtime. 15 mL 3 01/06/2022 Active Pen [place] 32G X 4 MMIndications:Type 2 diabetes mellitus [...] taking differently:40 mg OralDAILY PRN, Other, edema, Informant: Spouse, Reported on 11/11/2022 Atorvastatin Calcium 40 MG Oral Tablet (Lipitor)Indications :cholesterol Take by mouth 1 Tablet in the morning. 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 Will plan nurse or [facility] provider telemedicine recheck visit one week [...] as of this encounter (statuses as of 11/17/2022) Immunizations Name Administration Dates Next Due COVID-19 [...] this encounter Progress Notes * Samina Blunt, [facility] - 11/17/2022 11:20 AM EST Images from the original note were not [...] % 9.0* 7.8* 13.2* Recent Labs Units 11/14/22 1404 09/01/22 1442 05/21/22 1649 ESTIMATED GLOMERULAR FILTRATION RATE - [facility] mL/min 55* 71 81 CREATININE - [facility] mg/dL 1.3* 1.1 1.0 HYPERTENSION: Patient on ACEi/ARB: no, declines BP Readings from Last 3 Encounters: 11/11/22 126/60 08/05/22 118/62 06/27/22 96/74 Blood pressure at goal: yes HYPERLIPIDEMIA: Patient is taking moderate or high intensity statin: yes HEALTH MAINTENANCE REVIEW: Health Maintenance Due Topic Date Due Depression Screening, Annual for Pts 12 and Over 11/21/2020 DTaP,Tdap,and Td Vaccines (2 - Td or Tdap) 10/21/2021 ASSESSMENT & PLAN: No diagnosis found. BG Readings - Blood sugars controlled. Medications - Reviewed current regimen, patient is adherent to regimen. Recommending to continue atthis time. Diet, Exercise, Lifestyle - No significant lifestyle changes since last visit. Discussed with patient. Patient is agreeable to CGM. Patient aware to contact clinic if any hypoglycemia before next visit. MEDICATION CHANGES: no change Diabetic Medications: Lantus 20 units QHS Humalog 6 untis with meals-usually just with breakfast Metformin ER 500 mg 2 tabs AM HEALTH MAINTENANCE INTERVENTIONS: Labs: Up to Date Immunizations: Up to Date Foot Exam: Up to Date Eye Exam: Up to Date Annual Wellness Visit: Visit Scheduled for 02/18/22 FOLLOW UP: Return to clinic in 12 weeks 02/18/2023 Samina Blunt RPh Clinical Pharmacist - Driver Medication [facility] 11/17/2022, 11:20 AM documented in this encounter Plan of Treatment Upcoming Encounters Date Type Specialty Care Team Description 11/17/2022 Office Visit Cardiology Shelley Russell PA-C [address] [place] [address] 12/10/2022 Office Visit Cardiology Del Díaz Jr., DO [address] [place] [address] 12/19/2022 Nutrition Services Nutrition Services Dinah Mohamud RDN [address] [place] [address] 12/24/2022 Office Visit Podiatry Kylie Burroughs DPM [address] [place] [address] 02/03/2023 Office Visit Family Medicine Jaems Maria, [address] [place] [address] 02/18/2023 Office Visit Pharmacy [facility] Erica [address] [place] [address] 02/18/2023 Pharmacy Pharmacy [facility] [address] [place] [address] 09/11/2023 Office Visit Dermatology Lily Piedra MD 200 [facility], [place] [address] Scheduled Procedures Name Priority Associated Diagnoses Date/Ti [...] Agents on File Name Relationship [facility] Communication Farhana Sebastian Spouse Health Care Agent [phone] (Mobile) Care Teams Principal Product Manager Relationship Specialty Start Date End Date James Maria DO [address] [place] [address] PCP - General Family Medicine 06/07/18 documented as of this encounter
--- OUTSIDE RECORDS SUMMARY | 2023-07-31 19:49 | External Medical Summary ---
Author Name Unknown Address Unknown Organization K01:LABORATORY [facility] – [place], [place] - [address] [facility] [address] Laboratory Report Ordering Provider Test Date Status JULIEN QUIROS 11/20/2022 11:57:56 Final Observation Date Value Abnormality Reference (Units ) Status WBC, Total 11/20/2022 11:57:56 9.67 4.00-10.80 (K/uL) Final RBC 11/20/2022 11:57:56 4.44 4.50-5.25 (M/uL) Final Hemoglobin 11/20/2022 11:57:56 13.1 Below low normal 14.0-16.8 (g/dL) Final HCT 11/20/2022 11:57:56 40.2 40.0-48.4 (%) Final MCV 11/20/2022 11:57:56 90.5 82.0-99.5 (fL) Final MCH 11/20/2022 11:57:56 29.5 27.0-34.0 (pg) Final MCHC 11/20/2022 11:57:56 32.6 32.0-36.0 (g/dL) Final RDW 11/20/2022 11:57:56 12.4 11.5-15.5 (%) Final Platelets 11/20/2022 11:57:56 260 140-400 (K/uL) Final MPV 11/20/2022 11:57:56 11.1 6.6-11.1 (fL) Final Nucleated erythrocytes/100 leukocytes [Ratio] in Blood by Automated count 11/20/2022 11:57:56 0 <=0 (/100 WBCs) Final Performing Location LABORATORY [facility] - [address] [place] [address]
--- OUTSIDE RECORDS SUMMARY | 2023-07-31 19:49 | External Medical Summary ---
Author Name Unknown Address Unknown Organization K01:[place] [place] [address] [facility] [address] Laboratory Report Ordering Provider Test Date Status SHAGGY LANGFORD 11/14/2022 14:04:54 Final Observation Date Value Abnormality Reference (Units ) Status BUN 11/14/2022 14:04:54 24 Above high normal 6-20 (mg/dL) Final Creatinine 11/14/2022 14:04:54 1.3 Above high normal 0.6-1.2 (mg/dL) Final Glomerular filtration rate/1.73 sq M.predicted [Volume Rate/Area] in Serum, Plasma or Blood by Creatinine-based formula (CKD-EPI) 11/14/2022 14:04:54 55 Below low normal >=60 (mL/min) Final Performing Location [facility] [place] [address] [facility] [address]
--- OUTSIDE RECORDS SUMMARY | 2023-07-31 19:49 | External Medical Summary | Summary of Care ---
Author Name Unknown Organization [place] [address] Care Team Providers Care Service Rig Operator Name Role Phone James Maria Primary Care Provider Reason for Visit * Reason Comments Outpatient Testing Encounter Details Date Type Department Care Team Description 11/20/2022 Laboratory Laboratory, [place] [address] [place] [address] [place], [facility] [address] [place] [address] Paroxysmal atrial fibrillation (HCC); Localized edema; Nonrheumatic aortic valve stenosis Allergies Active Allergy [...] 11 12/27/2021 Active FreeStyle Rose Marie 2 [place] Device Test blood sugars four times daily 1 Each 0 12/27/2021 Active Lantus SoloStar 100 UNIT/ML Subcutaneous Solution Pen-injector (Insulin Glargine)Indications :Type 2 diabetes mellitus with hemoglobin A1c goal of less than 8.0% (HCC) Inject under the skin 15 Units before bedtime. 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 01/09/2022 [...] Shelley Russell PA-C [address] [place] [address] 12/10/2022 Office Visit Cardiology Del Díaz Jr., [address] [place] [address] 12/19/2022 Nutrition Services Nutrition Services Dinah Mohamud RDN [address] [place] [address] 12/24/2022 Office Visit Podiatry Kylie Burroughs, [facility] [address] [facility] [place] [address] 12/30/2022 Cardiac Studies Cardiac Studies 02/03/2023 Office Visit Family Medicine James Maria, [address] [place] [address] 02/18/2023 Office Visit Pharmacy [facility] Erica [address] [place] [address] 02/18/2023 [facility] [address] [place] [address] 09/11/2023 Office [facility]ermatology [facility] [address] Pending Results Name Type Priority Associated Diagnoses Date /Time CBC Lab Routine Paroxysmal atrial fibrillation (HCC) Localized edema Nonrheumatic aortic valve stenosis 11/20/2022 11:57 AM EST BASIC METABOLIC PANEL Lab Routine Paroxysmal atrial fibrillation (HCC) Localized edema Nonrheumatic aortic valve stenosis 11/20/2022 11:57 AM EST Scheduled Procedures Name Priority Associated Diagnoses Date/Ti [...] as of this encounter Visit Diagnoses Diagnosis Paroxysmal atrial fibrillation (HCC) Atrial fibrillation Localized edema Edema Nonrheumatic aortic valve stenosis Aortic valve disorders documented in this encounter Advance Directives Healthcare Agents on File Name Relationship Healthcare Agent Relationshi p Communication Farhana Sebastian Spouse Health Care Agent Care Teams Service Rig Operator Relationship Specialty Start Date End Date James Maria DO 132 [facility] [place] [address] PCP - General Family Medicine 06/07/18 documented as of this encounter
--- OUTSIDE RECORDS SUMMARY | 2023-07-31 19:49 | External Medical Summary | Summary of Care ---
Author Name Unknown Organization [place] [address] Care Team Providers Care Workers Compensation Administrator Name Role Phone James Maria DO Primary Care Provider Reason for Visit * Reason Onset Date Comments Appointment 11/10/2022 Encounter Details Date Type Department Care Team Description 11/10/2022 Telephone Family Practice [facility] [address] [place] [address] James Maria DO [address] [place] [address] Appointment Allergies Active Allergy Reactions Severity Noted Date Comments Lisinopril Edema face/lips/tongue High 04/05/2018 documented as of this encounter (statuses as of 11/10/2022) Medications Medication Sig Dispensed Refills Start Date [...] 11 12/27/2021 Active FreeStyle Rose Marie 2 [place] Device Test blood sugars four times daily 1 Each 0 12/27/2021 Active Lantus SoloStar 100 UNIT/ML Subcutaneous Solution Pen-injector (Insulin Glargine)Indications :Type 2 diabetes mellitus with hemoglobin A1c goal of less than 8.0% (HCC) Inject under the skin 15 Units before bedtime. 15 mL 3 01/06/2022 Active Pen [place] 32G X 4 MMIndications:Type 2 diabetes mellitus [...] as of this encounter (statuses as of 11/10/2022) Active Problems Problem Noted Date Heart failure [...] with fat layer exposed 01/09/2022 Atherosclerosis of tribal coronary arter y without angina pectoris 01/09/2022 [...] as of this encounter (statuses as of 11/10/2022) Resolved Problems Problem Noted Date Resolved Date [...] with worsening symptoms. Will plan nurse or [facility] provider telemedicine recheck visit one week to [...] as of this encounter (statuses as of 11/10/2022) Immunizations Name Administration Dates Next Due COVID-19 [...] encounter Miscellaneous Notes * Telephone Encounter - Beverly Storey LPN - 11/10/2022 10:12 AM EST Pt's spouse Farhana marina. States that the pt has a sore to his left lower leg near the [place]. Has been applying medicine and a bandaid to the area but when taking the bandaid off the area, it is completely soaked with yellow drainage. Is concerned that the area may be infected. Denies fever. Is asking to schedule the pt an appt. Appt scheduled for tomorrow 11.11.2022. documented in this encounter Plan of Treatment Upcoming Encounters Date Type Specialty Care Team Description 11/11/2022 Office Visit Family Medicine Benjamin Lennon CRNP [address] [place] [address] 11/17/2022 Office Visit Pharmacy [facility] Erica [address] [place] [address] 12/10/2022 Office Visit Cardiology Del Díaz Jr., DO [address] [place] [address] 12/19/2022 Nutrition Services Nutrition Services Dinah Mohamud RDN [address] [place] [address] 12/24/2022 Office Visit Podiatry Kylie Burroughs DPM [address] [place] [address] [place] [address] 02/03/2023 Office Visit Family Medicine James Maria DO [address] [place] [address] 09/11/2023 Office Visit Dermatology Lily Piedra MD 200 [facility] [place] [address] Scheduled Procedures Name Priority Associated Diagnoses Date/Ti [...] Sebastian Spouse Health Care Agent Care Teams Workers Compensation Administrator Relationship Specialty Start Date End Date James Maria DO [address] [place] [address] PCP - General Family Medicine 06/07/18 documented as of this encounter
--- OUTSIDE RECORDS SUMMARY | 2023-07-31 19:49 | External Medical Summary | Summary of Care ---
Author Name Unknown Organization [place] [address] Care Team Providers Care Nickel Plant Operator Name Role Phone James Maria Primary Care Provider Encounter Details Date Type Department Care Team Description 09/23/2022 Telephone Pharmacy, [facility] [address] [place] [address] [facility] [address] [place] [address] Allergies Active Allergy Reactions Severity Noted Date Comments Lisinopril Edema face/lips/tongue High 04/05/2018 documented as of this encounter (statuses as of 09/23/2022) Medications Medication Sig Dispensed Refills Start Date [...] 11 12/27/2021 Active FreeStyle Rose Marie 2 [place] Device Test blood sugars four times daily 1 Each 0 12/27/2021 Active Lantus SoloStar 100 UNIT/ML Subcutaneous Solution Pen-injector (Insulin Glargine)Indications :Type 2 diabetes mellitus with hemoglobin A1c goal of less than 8.0% (HCC) Inject under the skin 15 Units before bedtime. 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 Verified that patient resumed taking his insulin as prescribed. Educated spouse on S/S of DKA and that this is a medical emergency, should it occur. verbalizes understanding. Also notified that patient left paperwork of his in the office today and that we will hold onto it at clinic for them to come pick itup. Russel Clark PharmD, [facility] Emergency Department Technician Clinical Pharmacist 09/23/2022, 9:05 AM documented in this encounter Plan of Treatment Upcoming Encounters Date Type Specialty Care Team Description 11/17/2022 Office Visit Pharmacy [facility] Erica [address] [place] [address] 12/10/2022 Office Visit Cardiology Del Díaz Jr., DO [address] [place] [address] 12/24/2022 Office Visit Podiatry Kylie Burroughs DPM [address] [facility] [place] [address] 02/03/2023 Office Visit Family Medicine James Maria DO [address] [place] [address] 09/11/2023 Office Visit Dermatology Lily Piedra MD [address] [place] [address], [place] [address] Scheduled Procedures Name Priority Associated Diagnoses Date/Ti [...] Sebastian Spouse Health Care Agent Care Teams Nickel Plant Operator Relationship Specialty Start Date End Date James Maria DO [address] [place] [address] PCP - General Family Medicine 06/07/18 documented as of this encounter
--- OUTSIDE RECORDS SUMMARY | 2023-07-31 19:49 | External Medical Summary | Summary of Care ---
Author Name Unknown Organization [place] [address] Care Team Providers Care History Card Clerk Name Role Phone James Maria DO Primary Care Provider Encounter Details Date Type Department Care Team Description 11/17/2022 Immunization Pharmacy, [facility] [address] [facility] [place] [address] [facility] [address] [facility] [place] [address] Arrived Allergies Active Allergy Reactions Severity Noted [...] 11 12/27/2021 Active FreeStyle Rose Marie 2 [place] Device Test blood sugars four times daily 1 Each 0 12/27/2021 Active Lantus SoloStar 100 UNIT/ML Subcutaneous Solution Pen-injector (Insulin Glargine)Indications :Type 2 diabetes mellitus with hemoglobin A1c goal of less than 8.0% (HCC) Inject under the skin 15 Units before bedtime. 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 pectoris [...] [facility] Erica [address] [place] [address] 11/17/2022 Office Visit Cardiology Shelley Russell PA-C [address] [place] [address] 12/10/2022 Office Visit Cardiology Del Díaz Jr., DO [address] [place] [address] 12/19/2022 Nutrition Services Nutrition Services Dinah Mohamud, ALFIE [address] [place] [address] 12/24/2022 Office Visit Podiatry Kylie Burroughs DPM [address] [facility] [place] [address] 02/03/2023 Office Visit Family Medicine James Maria, [address] [place] [address] 09/11/2023 Office Visit Dermatology Lily Piedra MD [address] [place], [place] [address] [address] Scheduled Procedures Name Priority Associated Diagnoses Date/Ti [...] Sebastian Spouse Health Care Agent Care Teams History Card Clerk Relationship Specialty Start Date End Date James Maria DO [address] [place] [address] PCP - General Family Medicine 06/07/18 documented as of this encounter
--- OUTSIDE RECORDS SUMMARY | 2023-07-31 19:49 | External Medical Summary | Summary of Care ---
Author Name Unknown Organization [place] [address] Care Team Providers Care Wheel Cutter Name Role Phone James Maria Primary Care Provider Reason for Visit * Reason Comments Outpatient Testing Encounter Details Date Type Department Care Team Description 11/14/2022 Laboratory Laboratory, [place] [address] [place] [address] [place], Laboratory [address] [place] [address] Heart failure, unspecified HF chronicity, unspecified heart failure type (HCC) Allergies Active Allergy Reactions Severity Noted Date Comments Lisinopril Edema face/lips/tongue High 04/05/2018 documented as of this encounter (statuses as of 11/14/2022) Medications Medication Sig Dispensed Refills Start Date [...] 11 12/27/2021 Active FreeStyle Rose Marie 2 [place] Device Test blood sugars four times daily 1 Each 0 12/27/2021 Active Lantus SoloStar 100 UNIT/ML Subcutaneous Solution Pen-injector (Insulin Glargine)Indications :Type 2 diabetes mellitus with hemoglobin A1c goal of less than 8.0% (HCC) Inject under the skin 15 Units before bedtime. 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 pectoris 01/09/2022 [...] as of this encounter (statuses as of 11/14/2022) Resolved Problems Problem Noted Date Resolved Date [...] as of this encounter (statuses as of 11/14/2022) Immunizations Name Administration Dates Next Due COVID-19 [...] Date Type Specialty Care Team Description 11/17/2022 Immunization Pharmacy [facility] [place] [place] [address] 11/17/2022 Office Visit Pharmacy [facility] Erica [address] [place] [address] 11/17/2022 Office Visit Cardiology Shelley Russell PA-C [address] [place] [address] 12/10/2022 Office Visit Cardiology Del Díaz Jr., [address] [place] [address] 12/19/2022 Nutrition Services Nutrition Services Dinha Mohamud, FELIPEN [address] [place] [address] 12/24/2022 Office Visit Podiatry Kylie Burroughs DPM [address] [place] [id number] 02/03/2023 Office Visit Family Medicine James Maria, [address] [place] [address] 09/11/2023 Office Visit Dermatology Lily Piedra MD [address] [place] [address] [place] [address] Pending Results Name Type Priority Associated Diagnoses Date /Time BASIC METABOLIC PANEL Lab Routine Heart failure, unspecified HF chronicity, unspecified heart failure type (HCC) 11/14/2022 2:04 PM EST BNP, NT-PRO Lab Routine Heart failure, unspecified HF chronicity, unspecified heart failure type (HCC) 11/14/2022 2:04 PM EST Scheduled Procedures Name Priority Associated Diagnoses Date/Ti me COLONOSCOPY FLEXIBLE PROXIMA L DIAGNOSTIC Recall Encounter for screening colonoscopy Health Maintenance Due Date Last Done Comments Depression Screening, Annual for Pts 12 and Over 11/21/2020 11/21/2019 DTaP,Tdap,and Td Vaccines (2 - Td or Tdap) 10/21/2021 10/21/2011, 11/09/2003 COVID-19 Vaccine (4 - Booster for Moderna series) 04/22/2022 02/25/2022, 03/24/2021, 02/22/2021 HgA1C 03/01/2023 09/01/2022, 05/03, 02/27/2021, Additional history [...] as of this encounter Visit Diagnoses Diagnosis Heart failure, unspecified HF chronicity, unspecified heart failure type (HCC) documented in this encounter Advance Directives Healthcare Agents on File Name Relationship Healthcare Agent [facility] Communication Farhana Sebastian Spouse Health Care Agent Care Teams Wheel Cutter Relationship Specialty Start Date End Date James Maria, [address] [place] [address] PCP - General Family Medicine 06/07/18 documented as of this encounter
--- OUTSIDE RECORDS SUMMARY | 2023-07-31 19:49 | External Medical Summary | Summary of Care ---
Author Name Unknown Organization [place] [address] Care Team Providers Care Internetworking Technician Name Role Phone Yariel Mariavor Sophy Primary Care Provider Reason for Visit * Reason Onset Date Comments Appointment 11/12/2022 Encounter Details Date Type Department Care Team Description 11/12/2022 Telephone Family Practice [facility] [address] [facility] [place] [id number] Benjamin Lennon CRNP 132 [facility] [place] [address] Appointment Allergies Active Allergy Reactions Severity Noted Date Comments Lisinopril Edema face/lips/tongue High 04/05/2018 documented as of this encounter (statuses as of 11/19/2022) Medications Medication Sig Dispensed Refills Start Date [...] 11 2 Active FreeStyle Rose Marie 2 [place] Device Test blood sugars four times daily 1 Each 0 2 Active Lantus SoloStar 100 UNIT/ML Subcutaneous Solution Pen-injector (Insulin Glargine)Indication s:Type 2 diabetes mellitus with hemoglobin A1c goal of less than 8.0% (HCC) Inject under the skin 15 Units before bedtime. 15 mL 3 2 Active Pen Lolita 32G X 4 MMIndications:Type 2 diabetes mellitus [...] 2 Active Furosemide 40 MG Oral Tablet (Lasix)Indications: Chronic atrial fibrillation (HCC) Take by mouth 1 Tablet in the morning. 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 Agree with PCP recommendations for DTP of furosemide twice per day. Will await labs and response to therapy * Telephone Encounter - MICHEL Villatoro - 11/13/2022 1:45 PM EST Spoke with Farhana. Pt is scheduled for 11/17/22 with Shelley. Labs scheduled as well. * Telephone Encounter - Kelechi Brooks RN - 11/13/2022 1:14 PM EST Patient will have lab work drawn tomorrow 11/14/[address] [facility]. He has has 22 weight gain since 09/2022. His lower extremities are swollen. No abdominal; bloating; no cough. Does get PIERCE. He was taking Lasix 40 mg in am. Seen by doctor yesterday who told him to take 40 mg In am and 40 mg in pm X 3 days. He is on the 2nd day of it. * Telephone Encounter - Shelley Russell PA-C - 11/13/2022 11:14 AM EST Ok to add on next week at 1:00. In the meantime, nursing staff - please call patient. Assess for CHF symptoms beside weight gain - SOB, edema, abdominal bloating, orthopnea, cough? See how often he is taking furosemide and what dose? PCP ordered labs and not yet done. It would be helpful if he could have these done as well before the weekend and we can potentially adjust meds before appt * Telephone Encounter - MICHEL Hernández - 11/12/2022 8:21 AM EST Return pt of Dr Díaz, nothing open with him or AP, please triage and contact pt to schedule an appt. Thanks! * Telephone Encounter - BARTOLO Crooks - 11/12/2022 8:13 AM EST He came in for his wound yesterday-- noted he had 22lbs weight gain since September. HF patient. Please schedule pt with cardiology within 3 days. documented in this encounter Plan of Treatment Upcoming Encounters Date Type Specialty Care Team Description 11/20/2022 Laboratory Laboratory [facility] [address] [place] [address] 12/01/2022 Office Visit Cardiology Shelley Russell PA-C [address] [facility] [place] [address] 12/10/2022 Office Visit Cardiology Del Díaz Jr., DO [address] [place] [address] 12/19/2022 Nutrition Services Nutrition Services Dinah Mohamud RDN [address] [place] [address] 12/24/2022 Office Visit Podiatry Kylie Burroughs, REM[facility] [address] [facility] [place] [address] 12/30/2022 Cardiac Studies Cardiac Studies 02/03/2023 Office Visit Family Medicine James Maria DO 132 [facility] [place] [address] 02/18/2023 Office Visit Pharmacy [facility] [address] [place] [address] 02/18/2023 Pharmacy Pharm[facility], [facility] [address] [place] [address] 09/11/2023 Office Visit Dermatology Lily Piedra MD [address] [place] [address], [place] [address] Scheduled Procedures Name Priority Associated Diagnoses Date/Ti [...] File Name Relationship [facility] Farhana Sebastian Spouse Health Care Agent Care Teams Internetworking Technician Relationship Specialty Start Date End Date James Maria DO 132 [place] [address] PCP - General Family Medicine 06/07/18 documented as of this encounter
--- OUTSIDE RECORDS SUMMARY | 2023-07-31 19:49 | External Medical Summary ---
Author Name Unknown Address Unknown Organization K01:[facility] - [address] [place] [address] Laboratory Report Ordering Provider Test Date Status SHAGGY LANGFORD 11/14/2022 14:04:54 Final Observation Date Value Abnormality Reference (Units ) Status BNP, Pro-hormone 11/14/2022 14:04:54 438 Above high no rmal <300 (pg/mL) Final Performing Location [facility] - [address] [place] [address]
--- OUTSIDE RECORDS SUMMARY | 2023-07-31 19:49 | External Medical Summary | Summary of Care ---
Author Name Unknown Organization [place] [address] Care Team Providers Care Chemical Educator Name Role Phone James Maria Primary Care Provider Reason for Visit * Reason Comments DSMT Follow-Up Encounter Details Date Type Department Care Team Description 09/04/2022 Telemedicine Erica Rico 132 [facility] [place] [address] Dinah Mohamud RDN 132 [facility] [place] [address] Type 2 diabetes mellitus with hemoglobin A1c goal of less than 8.0% ([facility]; Dyslipidemia; HTN, goal below 130/80 Allergies Active Allergy Reactions Severity Noted Date Comments Lisinopril Edema face/lips/tongue High 04/05/2018 documented as of this encounter (statuses as of 09/04/2022) Medications Medication Sig Dispensed Refills Start Date End Date Status ONETOUCH ULTRA BLUE STRP USE TO CHECK GLUCOSE 4 TIMES DAILY 100 Strip 0 11/13/2016 Active Additional Information Patient not taking. Reported on 06/23/2022 ONETOUCH DELICA LANCETS 33G MISC USE ONE TO CHECK GLUCOSE 4 TIMES DAILY 100 Each 0 11/13/2016 Active Additional Information Patient not taking. Reported on 06/23/2022 Sildenafil Citrate (VIAGRA) 50 MG TabletIndications:Im potence of organic origin Take 1 Tab by mouth as needed for Erectile Dysfunction. 5 Tab 6 08/24/2017 Active Glucose Blood (ONETOUCH VERIO) STRP Use up to 4 times a day E11.9 300 Strip 3 08/24/2017 Active Additional Information Patient not taking. Reported on 06/23/2022 Fluorouracil 5 % External Cream [...] 3 12/25/2021 Active Additional Information Patient taking differently: 5 mg Oral BID, Indications: afib, Reported on 06/23/2022 metFORMIN HCl ER [...] 11 12/27/2021 Active FreeStyle Rose Marie 2 [place] Device Test blood sugars four times daily 1 Each 0 12/27/2021 Active Lantus SoloStar 100 UNIT/ML Subcutaneous Solution Pen-injector (Insulin Glargine)Indications :Type 2 diabetes mellitus with hemoglobin A1c goal of less than 8.0% (HCC) Inject under the skin 15 Units before bedtime. 15 mL 3 01/06/2022 Active Pen Aurora 32G X 4 MMIndications:Type 2 diabetes mellitus [...] 3 06/05/2022 Active Additional Information Patient taking differently: 40 mg Oral DAILY PRN, Other, edema, Reported on 06/23/2022 Atorvastatin Calcium 40 MG Oral Tablet (Lipitor)Indications :cholesterol Take by mouth 1 Tablet in the morning. 90 Tablet 1 06/27/2022 Active Silver sulfADIAZINE 1 % External Cream (Silvadene) Apply to sores on hands 3 times daily until healed 50 g 3 08/27/2022 Active documented as of this encounter (statuses as of 09/04/2022) Active Problems Problem Noted Date Heart failure [...] with fat layer exposed 01/09/2022 Atherosclerosis of [place] coronary arter y without angina pectoris 01/09/2022 [...] as of this encounter (statuses as of 09/04/2022) Resolved Problems Problem Noted Date Resolved Date [...] as of this encounter (statuses as of 09/04/2022) Immunizations Name Administration Dates Next Due COVID-19 [...] Tobacco Use Types Packs/Day Years Used Date Former Smoker Quit: 11/02 Smokeless Tobacco: Never Used Alcohol Use Standard Drinks/Week Comments Yes 0 [...] - Inhaled Oxygen Concentration - - Weight 80.8 kg (178 lb 2.1 oz) 09/04/2022 4:37 P M EDT Height 167.6 cm (5' 5.98") 09/04/2022 4:37 PM ED T Body Mass Index 28.77 09/04/2022 4:37 PM EDT documented in this encounter Patient Instructions * Patient Instructions* Dinah Mohamud RDN - 09/04/2022 4:49 PM EDT Participant will go to follow-up appointments with Podiatry, Cardiology, PCP, and [facility] as scheduled. documented in this encounter Progress Notes * Dinah Mohamud RDN - 09/04/2022 4:37 PM EDT DIABETES SELF-MANAGEMENT TRAINING/FOLLOW UP NOTE Name: Selvin Sebastian Date: 09/04/2022 After connecting to the patient via telephone, the patient was identified by name and date of . Patient was then informed that this was a telephone call only visit. The patient agreed to participate. Visit Disposition: Routine follow-up Total call duration was 8 minutes. Last order of DIABETES MANAGEMENT EDUCATION (ADA) [...] you like to discuss in your appointment: None. reports participant recently got over a "bad cold". States he was treated with Robitussin DM. States she has a cold today. Topics from last visit to attempt to cover today: None Was behavior objective from last visit met at least 80% of the time: Nutrition: Goal met 80% of the time: No Monitoring: Goal met 80% of the time: Unable to determine Diabetes Medications: Not reviewed Monitoring blood glucose, interpreting and using results [...] Estimated Average Glucose 332 (H) <126 mg/dL Self-Monitoring Blood Glucose Source of Information: Participant has a Freestyle Rose Marie Frequency of tests: unable to determine Hypoglycemia?: Unknown Diet: Not reviewed Weight management review: Wt Readings from Last 3 Encounters: 09/04/22 80.8 kg (178 lb 2.1 oz) 06/05/22 80.8 kg (178 lb 3 oz) 05/23/22 77.3 kg (170 lb 6.4 oz) Weight changes since last visit: decreased 9 lbs in past 5 1/2 months Physical Activity: Not reviewed ADA STANDARDS OF CARE/BUNDLE MEASURES Therapy Management Plan: Hypertension: BP Readings from Last 3 Encounters: 08/05/22 118/62 06/27/22 96/74 06/05/22 108/54 At goal/target Taking Metoprolol Dyslipidemia: Lab Results Component Value Date/Time LDL CHOLESTEROL (CALCULATED) - [facility] 56 09/01/2022 02:42 PM LDL CHOLESTEROL (CALCULATED) - [facility] 85 06/04/2016 01:48 PM LDL CHOLESTEROL (DIRECT MEASURE) - [facility] 53 01/11/2018 11:20 AM Results for orders [...] RATE - Date Value Ref Range Status 09/01/2022 71 >=60 mL/min Final Comment: eGFR is calculated based on the CKD-EPI 2020 equation 06/01/2020 >60.0 >60 Final Comment: If patient is , multiply estimated GFR by 1.159. 2013 >60.0 >60 mL/min Final ALBUMIN / CREATININE RATIO, URINE - Date Value Ref Range Status 06/05/2022 140 (H) <30 mg/g Creat Final 03/13/2020 23 <30 mg/g creat Final Comment: Normal: <30 mg/g creatinine High: 30-300 mg/g creatinine Very High: >300 mg/g creatinine Nephrotic: >2200 mg/g creatinine No results found for: PROTEIN/ CREATININE RATIO Out of target Diabetes Bundle / Standards of Care: Not reviewed DSMT Follow-up Assessment of Content Areas: Choose the answer that represents the participant's competency in ONLY topics assessed from previous visit and addressed today. Areas taught today must correlate with intervention. If content area not assessed and/or intervened today, it will be deferred to future session. Monitoring blood glucose, interpreting and using results: Needs review (2) Prevention, detection, and treatment of chronic complications: Needs review (2) DSMT/ Diabetes MNT intervention: Nutrition: states participant still occasionally drinks sugary beverages but notes not as often as previously. Monitoring: states participant's glucose levels fluctuate. No other details offered by . His diabetes regimen continues to be monitored by [facility]. Chronic Complications: states participant is doing well. States his open areas on his feet arehealed, but she notes some open areas on his toes. States she was given a treatment to apply; states this is working to clear it up. States participant has a [facility]. States he often has lower extremity edema-takes lasix PRN. Participant Selected Behavioral Objective: Preventing [facility] problems: To decrease the risk for complications, I will go to follow-up appointments with Podiatry, Cardiology, PCP, and [facility] as scheduled. Recommended Medication Changes: No changes recommended at this time Education materials given to participant/caregiver and reviewed during today's visit: None given today All [facility] providers within the system are able to see ADA education and outcomes within the participant electronic medical record. Of note: Due to 's respiratory symptoms, phone visit cut short. She is agreeable to a follow-upfor participant in next few months. Possible Future Topics: Content areas that were not assessed in prior visits: All content areas have been assessed. Time Spent With Patient: Time in: 12:47 PM Time out: 12:55 PM Billing: MNT: 15 Minutes (8-22) Plan for Return: 3 months Participant provided with contact information for Diabetes Care and Supervisor Machining. Dinah Mohamud RDN, NUTRITION SERVICES [facility] Diabetes Care and Supervisor Machining documented in this encounter Plan of Treatment Upcoming Encounters Date Type Specialty Care Team Description 09/19/2022 Office Visit Podiatry Kylie Burroughs, [facility] [address] [place] [address] [place] [address] 09/22/2022 Office Visit [facility]acy [facility] [address] [place] [address] 12/10/2022 Office Visit Cardiology Del Díaz Jr., DO [address] [place] [address] 02/03/2023 Office Visit Family Medicine James Maria, [address] [place] [address] 09/11/2023 Office Visit Dermatology Lily Piedra MD [address] [place] [address] [place] [address] Scheduled Procedures Name Priority Associated Diagnoses Date/Ti [...] this topic documented as of this encounter Implants Not on filedocumented as of this encounter Visit Diagnoses Diagnosis Type 2 diabetes mellitus with hemoglobin A1c goal of less than 8.0% (HCC)- Primary Dyslipidemia Other and unspecified hyperlipidemia HTN, goal below 130/80 Unspecified essential hypertension documented in this encounter Advance Directives Documents on File Type Date Recorded Patient Animal Humane Agent Supervisor Expl 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 Advanced Directive Advanced Directive Advanced Directive Advanced Directive Advanced Directive Advanced Directive Advanced Directive Advanced Directive Advanced Directive Advanced Directive Advanced Directive Advanced Directive Advanced Directive Advanced Directive Advanced Directive Advanced Directive Advanced Directive Advanced Directive Advanced Directive Advanced Directive Advanced Directive Advanced Directive Advanced Directive Advanced Directive Advanced Directive Advanced Directive Advanced Directive Advanced Directive Advanced Directive Advanced Directive Advanced Directive Advanced Directive Advanced Directive Advanced Directive Advanced Directive Advanced Directive Advanced Directive Advanced Directive Advanced Directive Advanced Directive Advanced Directive Advanced Directive Advanced Directive Advanced Directive Advanced Directive Advanced Directive Advanced Directive Advanced Directive Advanced Directive Advanced Directive Advanced Directive Advanced Directive Advanced Directive Advanced Directive Advanced Directive Advanced Directive Advanced Directive Advanced Directive Advanced Directive Advanced Directive Advanced Directive Advanced Directive Advanced Directive Advanced Directive Advanced Directive Advanced Directive Advanced Directive Advanced Directive Advanced Directive Advanced Directive Advanced Directive Advanced Directive Advanced Directive Advanced Directive Advanced Directive Advanced Directive Advanced Directive Advanced Directive Advanced Directive Advanced Directive Advanced Directive Advanced Directive Advanced Directive Advanced Directive Advanced Directive Advanced Directive Advanced Directive Advanced Directive Advanced Directive Advanced Directive Advanced Directive Advanced Directive Advanced Directive Advanced Directive Advanced Directive Advanced Directive Advanced Directive Advanced Directive Advanced Directive Advanced Directive Advanced Directive Advanced Directive Advanced Directive Advanced Directive Advanced Directive Advanced Directive Advanced Directive Advanced Directive Advanced Directive Advanced Directive Advanced Directive Advanced Directive Advanced Directive Advanced Directive Advanced Directive Advanced Directive Advanced Directive Advanced Directive Healthcare Agents on File Name Relationship Healthcare Agent Relationshi p Communication Farhana Sebastian Spouse Health Care Agent Care Teams Chemical Educator Relationship Specialty Start Date End Date James Maria DO [address] [place] [address] PCP - General Family Medicine 06/07/18 documented as of this encounter
--- OUTSIDE RECORDS SUMMARY | 2023-07-31 19:49 | External Medical Summary | Summary of Care ---
Author Name Unknown Organization [place] [address] Care Team Providers Care Composite Science Teacher Name Role Phone Crow James Dyefiliberto Primary Care Provider Reason for Referral * Evaluate & Treat - Unlimited Visits (Within 10 days (routine)) - Authorized Specialty Diagnoses / Procedures Referred By Conthuang t Referred To Contact Wound Care Diagnoses Ulcers of both lower extremities, unspecified ulcer stage (HCC) Benjamin Lennon CRNP [address] [place] [address] Referral ID Status Reason Start Date Expiration Date Visits Requested Visits Authorized [id number] Authorized Specialty Services Required 11/11/2022 999 999 Question Answer Referral Priority Within 10 days (routine) Comments Assess for: Hx of wound healing problem, ulcers in L calf Reason for Visit * Reason Comments Other Wound to left leg in the calf area; patient accompanied by spouse Farhana; she reports he is also having swelling to both legs - she states wound has been ongoing for about 2 weeks; patient states he has also been getting blisters to his hands Wound Care Encounter Details Date Type Department Care Team Description 11/11/2022 Office Visit Family Practice [facility] [address] [place] [address] Benjamin Lennon CRNP [address] [place] [address] Heart failure, unspecified HF chronicity, unspecified heart failure type (HCC)*; Ulcers of both lower extremities, unspecified ulcer stage ([facility]) Allergies Active Allergy Reactions Severity Noted Date Comments Lisinopril Edema face/lips/tongue High 04/05/2018 documented as of this encounter (statuses as of 11/11/2022) Medications Medication Sig Dispensed Refills Start Date [...] 12/27/2021 Active FreeStyle Rose Marie 2 [place] Device Test blood sugars four times daily 1 Each 0 12/27/2021 Active Lantus SoloStar 100 UNIT/ML Subcutaneous Solution Pen-injector (Insulin Glargine)Indications :Type 2 diabetes mellitus with hemoglobin A1c goal of less than 8.0% (HCC) Inject under the skin 15 Units before bedtime. 15 mL 3 01/06/2022 Active Pen [place] 32G X 4 MMIndications:Type 2 diabetes mellitus [...] as of this encounter (statuses as of 11/11/2022) Active Problems Problem Noted Date Heart failure [...] with fat layer exposed 01/09/2022 Atherosclerosis of [place] coronary arter y without angina pectoris 01/09/2022 [...] as of this encounter (statuses as of 11/11/2022) Resolved Problems Problem Noted Date Resolved Date [...] as of this encounter (statuses as of 11/11/2022) Immunizations Name Administration Dates Next Due COVID-19 [...] Sign Reading Time Taken Comments Blood Pressure 126/60 11/11/2022 4:24 PM EST Pulse 56 11/11/2022 4:24 PM EST Temperature 36.3 C (97.3 F) 11/11/2022 4 :24 PM EST Respiratory Rate 16 11/11/2022 4:24 PM EST Oxygen Saturation 94% 11/11/2022 4:2 4 PM EST 94% - 95% room air Inhaled Oxygen Concentration - - Weight 90.9 kg (200 lb 6.4 oz) 11/11/2022 4:24 PM EST without jacket or pants Height - - Body Mass Index 32.36 09/04/2022 4:37 PM EDT documented in this encounter Progress Notes * BARTOLO Crooks - 11/11/2022 4:50 PM EST Images from the original note were not included. Follow up Family Medicine Visit History of Present Illness Selvin Sebastian is a pleasant 77 year old male presenting with left wound calf. Accompanied by spouse Farhana Sebastian. Upon checking weight, he gained nearly 30lbs. Pt was re-weighted with just gown, still 22 lbs gain since 09/04/22. Patient was sleeping in in the chair when I entered the exam room. Extremely [place]. Farhana reports increased swelling in bilateral lower extremities. Has been taking lasix 40mg daily, does not check weight at home. Wound in his LLE, non healing for 2 weeks. 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/13/2020 Otitis media 2004 Overweight (BMI 25.0-29.9) 05/22/2022 Sensorineural hearing loss, unilateral 2003 left Past Surgical History: Procedure Laterality Date COLONOSCOPY 11/05 clear - repeat 10 y COLONOSCOPY, DIAGNOSTIC (RECTUM) 12/10/2015 diverticulosis, repeat 10 yrs/COLONOSCOPY FLEXIBLE PROXIMAL DIAGNOSTIC performed by Agustin Saravia MD at ENDOSCOPY [facility] FOOT/TOE SURGERY NEC 11/14 L foot deformity L-/S-SPINE PARAVERTEBRAL FACET INJ,1 LEVEL 05/03/2020 L-/S-SPINE PARAVERTEBRAL FACET INJ, 1 LEVEL performed by Avtar Merchant DO at OR [facility] MASTOID SURGERY REVISION/APICECTOMY age 18 [facility] SHOULDER ARTHROSCOPY SURGERY 01/07 spur removed Outpatient Medications Marked as Taking for the 11/11/22 encounter (Office Visit) with BARTOLO Crooks Medication Sig Silver sulfADIAZINE 1 % External Cream (Silvadene) Apply to sores on hands 3 times daily until healed Atorvastatin Calcium 40 MG Oral Tablet (Lipitor) Take by mouth 1 Tablet in the morning. Furosemide 40 MG Oral Tablet (Lasix) Take by mouth 1 Tablet in the morning. (Patient taking differently: Take 1 Tablet by mouth daily as needed for Other (edema).) Tamsulosin HCl 0.4 MG Oral Capsule (Flomax) TAKE ONE CAPSULE BY MOUTH EVERY MORNING NovoLOG FlexPen 100 UNIT/ML Subcutaneous Solution Pen-injector (insulin aspart) Inject under the skin 5 Units three times a day with meals . Lantus SoloStar 100 UNIT/ML Subcutaneous Solution Pen-injector (Insulin Glargine) Inject under the skin 15 Units before bedtime. Pen [place] 32G X 4 MM Use as directed . Use to inject insulin up to 4 times daily. FreeStyle Rose Marie 2 [place] Device Test blood sugars four times daily FreeStyle Rose Marie 2 Sensor Test blood sugars four times daily Eliquis 5 MG Oral Tablet Take by mouth 1 Tablet in the morning AND 1 Tablet before bedtime. (Patient taking differently: Take 1 Tablet by mouth in the morning and 1 Tablet before bedtime.) metFORMIN HCl ER 500 MG Oral Tablet Extended Release 24 Hour (Glucophage XR) Take by mouth 2 Tablets in the morning. Metoprolol Tartrate 25 MG Oral Tablet (Lopressor) Take by mouth 1 Tablet in the morning AND 1 Tablet before bedtime. Insulin Syringe-Needle U-100 30G X 5/16" 0.3 ML Use up to 4 x a day for insulin dosing E11.9 Fluorouracil 5 % External Cream (Efudex) Apply to Scalp, ears, and temples twice a day for three weeks. Review of patient's allergies indicates: Allergen Reactions Lisinopril Edema face/lips/tongue Most Recent Immunizations Administered Date(s) Administered COVID-19 mRNA, LNP-s, No Preserve, 2-Dose Series (Moderna) 03/24/2021 COVID-19, LNP-s, No Preserve, Ministerio-sucrose, Ages 12+ (Pfizer) 02/25/2022 Pneumococcal Conjugate Vacc, 13 Valent (Prevnar) 12/24/2015 Pneumococcal Polysaccharide PPV23 (Pneumovax) 07/23/2011 Seasonal Influenza, Quadrivalent Hd (Fluzone Hd) 08/05/2022 Seasonal Influenza, Quadrivalent, No Preserve, 6 Mons & Above, IM 08/03/2020 Seasonal Influenza, Quadrivalent, No Preserve, IM 09/16/2016 Seasonal Influenza, Split, IIV3, With Preserve, Inj 08/15/2014 Seasonal Influenza, Trivalent, Adjuvanted, 65+ yrs 08/22/2019 TD - Tetanus/Diptheria (ADULT) 11/09/2003 TDAP (age 11 and older)(Adacel) 10/21/2011 Varicella Zoster Vaccine (Adult) 08/03/2012 Zoster Vaccine Recombinant (Shingrix) 03/13/2020 Review of Systems: Review of Systems Constitutional: Positive for fatigue and unexpected weight change. Negative for chills and fever. Respiratory: Positive for shortness of breath (on exertion). Negative for wheezing. Cardiovascular: Positive for leg swelling. Negative for chest pain. Physical Exam BP 126/60 (BP Site: Left Arm, BP Position: Sitting, BP Cuff Size: Large) | Pulse 56 | Temp 36.3 C(97.3 F) (Tympanic) | Resp 16 | Wt 93.4 kg (206 lb) | BMI 33.27 kg/m | BSA 2.09 m Physical Exam Constitutional: General: He is not in acute distress. Appearance: Normal appearance. He is not toxic-appearing. HENT: Head: Normocephalic. Cardiovascular: Rate and Rhythm: Normal rate and regular rhythm. Heart sounds: Murmur (systolic) heard. Pulmonary: Effort: Pulmonary effort is normal. No respiratory distress. Breath sounds: Normal breath sounds. No wheezing or rales. Musculoskeletal: Cervical back: Neck supple. Right lower le+ Edema present. Left lower le+ Edema present. Legs: Comments: Two open ulcers in L calf with several small blisters, scabs on R quintana Skin: General: Skin is warm. Findings: Wound present. No erythema. Neurological: Mental Status: He is alert and oriented to person, place, and time. Psychiatric: Mood and Affect: Mood normal. Assessment and Plan 1. Heart failure, unspecified HF chronicity, unspecified heart failure type (HCC) Vitals stable, O2 Sats 95% Increase Lasix 40mg BID x 3 days and follow up with cardiology in 3 days - BASIC METABOLIC PANEL; Future - BNP, NT-PRO; Future 2. Ulcers of both lower extremities, unspecified ulcer stage (HCC) Multifactorial, venous statis, HF, DM No erythema or strikes Extensive swelling and blisters noted - WOUND CARE REFERRAL OP Wrap-Up I have advised the patient to call our office with any worsening or new symptoms. I spent a total of 40-54 minutes (exact time 45 mins) on the date of service in preparation, delivery, and documentation of the care provided to Selvin Sebastian excluding any time spent in the performance of separately billed services. JENNIFER Crooks, BARTOLO [facility] [place] documented in this encounter Nursing Notes * Naveen Johnson RN - 11/11/2022 4:20 PM EST Chief Complaint Patient presents with Other Wound to left leg in the calf area; patient accompanied by spouse Farhana; she reports he is also having swelling to both legs - she states wound has been ongoing for about 2 weeks; patient states he has also been getting blisters to his hands Wound Care documented in this encounter Plan of Treatment Upcoming Encounters Date Type Specialty Care Team Description 11/17/2022 Office Visit Pharmacy [facility] [address] [address] 12/10/2022 Office Visit Cardiology Del Díaz Jr., DO [address] [address] 12/19/2022 Nutrition Services Nutrition Services Dinah Mohamud, RDN [address] [facility] [address] [place] [address] 12/24/2022 Office Visit Podiatry Kylie Burroughs, DPM [address] [facility] [address] [address] 02/03/2023 Office Visit Family Medicine James Maria, DO [address] [address] 09/11/2023 Office Visit Dermatology Lily Piedra MD [address] [facility] [place] [facility] [place] [address] Scheduled Orders Name Type Priority Associated Diagnoses Orde r Schedule BASIC METABOLIC PANEL Lab Routine Heart failure, unspecified HF chronicity, unspecified heart failure type (HCC) Expected: 11/11/2022 (Approximate), Expires: 11/11/2023 BNP, NT-PRO Lab Routine Heart failure, unspecified HF chronicity, unspecified heart failure type (HCC) Expected: 11/11/2022 (Approximate), Expires: 11/11/2023 Scheduled Procedures Name Priority Associated Diagnoses Date/Ti me COLONOSCOPY FLEXIBLE PROXIMA L DIAGNOSTIC Recall Encounter for screening colonoscopy Scheduled Referrals Name Type Priority Associated Diagnoses Orde r Schedule WOUND CARE REFERRAL OP Referral Within 10 days (routine) Ulcers of both lower extremities, unspecified ulcer stage (HCC) Ordered: 11/11/2022 Health Maintenance Due Date Last Done Comments Depression Screening, Annual for Pts 12 and Over 11/21/2020 11/21/2019 DTaP,Tdap,and Td Vaccines (2 - Td or Tdap) 10/21/2021 10/21/2011, 11/09/2003 COVID-19 Vaccine (4 - Booster for Moderna series) 04/22/2022 02/25/2022, 03/24/2021, 02/22/2021 HgA1C 03/01/2023 09/01/2022, 07/, 02/27/2021, Additional history exists Alb / Creat [...] unspecified HF chronicity, unspecified heart failure type (HCC)- Primary Ulcers of both lower extremities, unspecified ulcer stage (HCC) documented in this encounter Advance Directives Healthcare Agents on File Name Relationship Healthcare Agent Relationshi p Communication Farhana Sebastian Spouse Health Care Agent Care Teams Composite Science Teacher Relationship Specialty Start Date End Date James Maria DO [address] [address] PCP - General Family Medicine 06/07/18 documented as of this encounter
--- OUTSIDE RECORDS SUMMARY | 2023-07-31 19:50 | External Medical Summary | Summary of Care ---
Author Name Unknown Organization [place] [address] Care Team Providers Care Reach Truck Operator Name Role Phone James Maria DO Primary Care Provider Encounter Details Date Type Department Care Team Description 09/01/2022 Nurse Only Family [facility] [address] [place] [address] 2, Nurse Care [facility] [address] [place] [address] Arrived Allergies Active Allergy Reactions Severity Noted Date Comments Lisinopril Edema face/lips/tongue High 04/05/2018 documented as of this encounter (statuses as of 09/01/2022) Medications Medication Sig Dispensed Refills Start Date [...] 11 12/27/2021 Active FreeStyle Rose Marie 2 [place] Device Test blood sugars four times daily 1 Each 0 12/27/2021 Active Lantus SoloStar 100 UNIT/ML Subcutaneous Solution Pen-injector (Insulin Glargine)Indications :Type 2 diabetes mellitus with hemoglobin A1c goal of less than 8.0% (HCC) Inject under the skin 15 Units before bedtime. 15 mL 3 01/06/2022 Active Pen [place] 32G X 4 MMIndications:Type 2 diabetes mellitus [...] as of this encounter (statuses as of 09/01/2022) Active Problems Problem Noted Date Heart failure [...] with fat layer exposed 01/09/2022 Atherosclerosis of [place] coronary arter y without angina pectoris 01/09/2022 [...] as of this encounter (statuses as of 09/01/2022) Resolved Problems Problem Noted Date Resolved Date [...] as of this encounter (statuses as of 09/01/2022) Immunizations Name Administration Dates Next Due COVID-19 [...] on file documented as of this encounter Patient Instructions * Patient Instructions* Mallika Elise Trey, TONY - 09/01/2022 2:45 PM EDT Diabetes: Keeping Feet Healthy Inspect your feet every day for signs of a problem. Diabetes can damage nerves in your feet and cause neuropathy. This condition makes it hard for you to feel injuries or sore spots. Diabetes can also change blood flow, making it harder for small problems, like a blister, to heal properly. In fact, minor injuries can quickly become serious infections that send you to the hospital. Practice self-care to protect your feet and keep them healthy. Take Special Care Inspect your feet daily for problems such as redness, blisters, cracks, dry skin, or numbness. Use a mirror to see the bottoms of your feet. Or, ask for help. Manage your diabetes. Monitor and control your blood sugar. Take all your medications as prescribed. Avoid walking barefoot, even indoors. Wash your feet with warm water and mild soap. Dry well, especially between toes. Dont treat corns or calluses yourself. Talk to your doctor or hr coordinator (a doctor who specializes in foot care) if you need assistance trimming your toenails. Use moisturizing cream or lotion if you have dry skin, but dont use it between toes. Dont use heating pads on your feet. If you have neuropathy, you could get a burn and not feel it. Stop smoking. Smoking restricts blood flow and can make it harder for wounds to heal. Have Regular Checkups Foot problems can develop quickly. So be sure to follow your healthcare teams schedule for regular checkups. During office visits, take off your shoes and socks as soon as you get in the exam room. Ask your healthcare provider to examine your feet for problems. This will make it easier to find and treat small skin irritations before they get worse. Regular checkups can also help keep track of the blood flow and feeling in your feet. If you have neuropathy, you may need to have checkups more often. Wear Proper Footwear Wearing proper footwear is very important. If areas of your feet have been damaged by too much pressure, your healthcare provider may recommend changing your footwear. In some cases, avoiding high heels or tight work boots may be all thats needed. Or, your healthcare provider may recommend special shoes or custom inserts. These help protect your feet and keep existing irritations from getting worse. If you need special footwear, ask your healthcare provider if you qualify for [employer] diabetic shoe program. Make Sure Shoes and Socks Fit Any pair of shoesnew or oldshould feel comfortable as soon as you put them on. There shouldnt be any rubbing when you walk. Wear the right shoe for any activity. For instance, a running shoeis designed to keep your feet injury-free while jogging. Buy shoes at the end of the day, when yourfeet are larger. Make sure they provide support without feeling too loose. Make sure your socks fit, too. Wear soft, seamless, well-padded socks for activity. Cotton or microfiber socks are best to help to absorb sweat. To protect your feet, avoid shoes that are open-toed or open-heeled. If you have questions about what kinds of shoes and socks are best, talk to your healthcare team. Get Regular Exercise Regular exercise improves blood flow in your feet. It also increases foot strength and flexibility.Gentle exercises, like walking or riding a stationary bicycle, are best. You can also do special foot exercises. Just be sure to talk with your healthcare provider before starting any exercise program. Also mention if any exercise causes pain, redness, or other signs of foot problems. Note: If you have any kind of break in the skin of your foot or ankle, keep the area clean. Then call your doctorespecially if the area doesnt appear to be healing. [id number] [employer], [address] [place] [address], [place] [address]. All rights reserved. This information is not intended as a substitute for professional medical care. Always follow your healthcare professional's instructions. documented in this encounter Progress Notes * Mallika Yang LPN - 09/01/2022 2:38 PM EDT DM Foot Exam completed today. Provider aware. Mallika Yang LPN Socks and Shoes Removed for Annual Diabetic Foot Screening RIGHT FOOT: Area of Concern: In between toes, open areas noted, and under great toe and pad of foot, appears to look blisters that may have opened, skin is sloughing off. . RIGHT Dorsalis Pedis Pulse: Palpable RIGHT Posterior Tibial Pulse: Unable to locate RIGHT Monofilament:Patient reports difficulty feeling monofilament at Great toe- plantar surface, Third toe-plantar surface, Ball of Foot-base of great toe, Ball of Foot-base of 3rd toe and Ball of Foot-base of little toe LEFT FOOT: Area of Concern open areas noted between toes and underneath on foot pad noted, appears as may have had blisters that opened. Skin is sloughing off. LEFT Dorsalis Pedis Pulse: Unable to locate LEFT Posterior Tibial Pulse: Unable to locate LEFT Monofilament:Patient reports difficulty feeling monofilament at Great toe- plantar surface, Third toe-plantar surface, Ball of Foot-base of great toe, Ball of Foot-base of 3rd toe and Ball of Foot-base of little toe Do you need diabetic shoes: N/A documented in this encounter Plan of Treatment Upcoming Encounters Date Type Specialty Care Team Description 09/03/2022 Office Visit Cardiology Arjun Nielsen, DO [place] [id number] 09/19/2022 Office Visit Podiatry Kylie Burroughs, DPM [address] [place] [address] [address] [phone] 09/22/2022 Office Visit Pharmacy [facility]a [address] [address] 02/03/2023 Office Visit Family Medicine James Maria DO [address] [address] 09/11/2023 Office Visit Dermatology Lily Piedra MD [address] [place] [address] Scheduled Orders Name Type Priority Associated Diagnoses Orde r Schedule CBC Lab Routine HTN, goal below 130/80 Encounter for long-term (current) use of medications Ordered: 09/01/2022 DIFFERENTIAL, AUTOMATED Lab Routine HTN, goal below 130/80 Encounter for long-term (current) use of medications Ordered: 09/01/2022 Scheduled Procedures Name Priority Associated Diagnoses Date/Ti me COLONOSCOPY FLEXIBLE PROXIMA L DIAGNOSTIC Recall Encounter for screening colonoscopy Health Maintenance Due Date Last Done Comments Yearly B-12 11/16/2020 11/16/2019, 01/11/2018 Depression Screening, Annual for Pts 12 and Over 11/21/2020 11/21/2019 DTaP,Tdap,and Td Vaccines (2 - Td or Tdap) 10/21/2021 10/21/2011, 11/09/2003 COVID-19 Vaccine (4 - Booster for Moderna series) 04/22/2022 02/25/2022, 03/24/2021, 02/22/2021 DIABETES-HGBA1C EVERY 6 MONTHS 11/21/2022 05/21/2022, 02/27/2021, 03/13/2020, Additional history exists GFR - Renal Function 05/21/2023 05/21/2022, 11/08/2021, 02/27/2021, Additional history exists Alb / Creat Ratio 06/05/2023 06/05/2022, , 12/13/2018, Additional history exists DIABETES-EYE EXAM 09/01/2023 09/01/2022, , 12/15/2019, Additional history exists DIABETES-FOOT EXAM 09/01/2023 09/01/2022, 0 02/28/2021, 10/13/2019, Additional history exists Pneumococcal Vaccine: 65+ Years [...] Procedure Name Priority Date/Time Associated Diagnosis Comments TELEMEDICINE DIABETIC EYE Routine 09/01/2022 Screening for diabetic retinopathy documented in this encounter Results * TELEMEDICINE DIABETIC EYE (09/01/2022) Specimen Narrative documented in this encounter Visit Diagnoses Diagnosis Type 2 diabetes mellitus with polyneuropathy (HCC)- Primary Type II or unspecified type diabetes mellitus with neurological manifestations, not stated as uncontrolled Screening for diabetic retinopathy Screening for other eye conditions Type 2 diabetes mellitus with hemoglobin A1c goal of less than 8.0% (HCC) Dyslipidemia Other and unspecified hyperlipidemia HTN, goal below 130/80 Unspecified essential hypertension Encounter for long-term (current) use of medications Encounter for long-term (current) use of other medications documented in this encounter Advance Directives Documents on File Type Date Recorded Patient 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
--- OUTSIDE RECORDS SUMMARY | 2023-07-31 19:50 | External Medical Summary | Summary of Care ---
Author Name Unknown Organization [place] [address] Care Team Providers Care Engineer System Administrator Name Role Phone James Maria DO Primary Care Provider Reason for Visit * Reason Onset Date Comments Health Maintenance 08/19/2022 Encounter Details Date Type Department Care Team Description 08/19/2022 Telephone Family Practice [facility] [address] [facility] [place] [address] James Maria DO [address] [facility] [place] [address] Health Maintenance Allergies Active Allergy Reactions Severity Noted Date Comments Lisinopril Edema face/lips/tongue High 04/05/2018 documented as of this encounter (statuses as of 08/19/2022) Medications Medication Sig Dispensed Refills Start Date [...] 11 12/27/2021 Active FreeStyle Rose Marie 2 [place] Device Test blood sugars four times daily 1 Each 0 12/27/2021 Active Lantus SoloStar 100 UNIT/ML Subcutaneous Solution Pen-injector (Insulin Glargine)Indications :Type 2 diabetes mellitus with hemoglobin A1c goal of less than 8.0% (HCC) Inject under the skin 15 Units before bedtime. 15 mL 3 01/06/2022 Active Pen [place] 32G X 4 MMIndications:Type 2 diabetes mellitus [...] the morning. 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 Never true 05/15/2022 Within the past 12 months, t he food you bought just didn't last and you didn't have money to get more. Never true 05/15/2022 Sex Assigned at Date Recorded Male 11/21/2019 11:44 AM EST Job Start Date Occupation Industry Not on file Not on file Not on file documented as of this encounter Miscellaneous Notes * Telephone Encounter - Vania Brownlee CMA - 08/19/2022 9:50 AM EDT Care Gaps Comprehensive Care Outreach Last Office/Telemedicine Visit: 06/05/2022 (in office), Visit date not found (telemedicine) Last Office/Telemedine Visit Annual Wellness: Next Office Visit: 02/03/2023 Hemoglobin AIC Results: Lab Results Component Value Date/Time HEMOGLOBIN A1C - [facility] 7.8 (H) 05/21/2022 04:49 PM HEMOGLOBIN A1C - [facility] 13.2 (H) 02/27/2021 11:24 AM HEMOGLOBIN A1C - [facility] 7.4 (H) 03/13/2020 09:26 AM HEMOGLOBIN A1C - [facility] 11.5 (H) 11/16/2019 08:37 AM HEMOGLOBIN A1C - [facility] 14.3 (H) 12/13/2018 03:03 PM Reviewed Health Maintenance below: Care needs Care needs Last completed Due next Yearly B-12 vitamin test 11/16/2019 11/16/2020 Diphtheria, tetanus & pertussis vaccines (2 - Td or Tdap) 10/21/2011 10/21/2021 Yearly foot exam 02/28/2021 02/28/2022 Dilated eye exam (by eye doctor or retinal camera) 03/04/2021 03/04/2022 COVID-19 Vaccine (4 - Booster for Moderna series) 02/25/2022 04/22/2022 A1C blood sugar test - every 6 months 05/21/2022 11/21/2022 Kidney Function Test 05/21/2022 05/21/2023 Urine albumin/creatinine test 06/05/2022 06/05/2023 Care Gap Outreach Action Taken: my portal message sent documented in this encounter Plan of Treatment Upcoming Encounters Date Type Specialty Care Team Description 09/03/2022 Office Visit Cardiology ArjunDel monsivais Jr., DO [address] [place] [address] 09/19/2022 Office Visit Podiatry Kylie Burroughs, DPM [address] [place] [address] 09/19/2022 Office Visit Pharmacy [facility] Erica [address] [place] [address] 02/03/2023 Office Visit Family Medicine James Maria, DO [address] [place] [address] Scheduled Procedures Name Priority Associated Diagnoses Date/Ti me COLONOSCOPY FLEXIBLE PROXIMA L DIAGNOSTIC Recall Encounter for screening colonoscopy Health Maintenance Due Date Last Done Comments Yearly B-12 11/16/2020 11/16/2019, 01/11/2018 Depression Screening, Annual for Pts 12 and Over 11/21/2020 11/21/2019 DTaP,Tdap,and Td Vaccines (2 - Td or Tdap) 10/21/2021 10/21/2011, 11/09/2003 DIABETES-FOOT EXAM 02/28/2022 02/28/2021, 1 12/14/2018, 06/07/2018, Additional history exists DIABETES-EYE EXAM 03/04/2022 03/04/2021, , 06/30/2016, Additional history exists COVID-19 Vaccine (4 - Booster for Moderna series) 04/22/2022 02/25/2022, 03/24/2021, 02/22/2021 DIABETES-HGBA1C EVERY 6 MONTHS 11/21/2022 05/21/2022, 02/27/2021, 03/13/2020, Additional history exists GFR - Renal Function 05/21/2023 05/21/2022, 11/08/2021, 02/27/2021, Additional history exists Alb / Creat Ratio 06/05/2023 06/05/2022, , 12/13/2018, Additional history exists Pneumococcal Vaccine: 65+ Years [...] filedocumented as of this encounter Advance Directives Documents on File Type Date Recorded Patient Leaf Sticker Expl anation Advanced Directive service a hi [...] Agents on File Name Relationship Healthcare Agent [facility] p Communication Farhana Sebastian Spouse Health Care Agent Care Teams Engineer System Administrator Relationship Specialty Start Date End Date James Maria DO [address] [facility] [place] [address] PCP - General Family Medicine 06/07/18 documented as of this encounter
--- OUTSIDE RECORDS SUMMARY | 2023-07-31 19:50 | External Medical Summary | Continuity of Care Document ---
Author Name Unknown Organization [id number] Address [address] [place] [id number] Care Team Providers Care Senior Program Planner Name Role Phone James Maria Primary Care Physician [phone] Encounter [facility] [id number] Date(s): 08/18/22 - 08/18/22 [id number] [address] [address] Encounter Diagnosis Puncture wound of foot, right(Discharge Diagnosis) - 08/18/22 Diabetic foot ulcer(Discharge Diagnosis) - 08/18/22 Discharge Disposition: Home or Self Care Attending Physician: MD Alayna, Jeremiah Lau Allergies, Adverse Reactions, Alerts Substance Reaction Severity Status hydrochlorothiazide-triamterene swelling Active Medications atorvastatin 40 mg oral tablet Start: 05/19/22 13:36:00 EDT Start Date: 05/19/22 Status: Ordered Eliquis 5 mg oral tablet Start: 05/19/22 13:35:00 EDT, 1 tab, PO, bid Start Date: 05/19/22 Status: Ordered furosemide 40 mg oral tablet Start: 05/19/22 13:34:00 EDT Start Date: 05/19/22 Status: Ordered metFORMIN 500 mg oral tablet Start: 05/19/22 13:34:00 EDT, 1 tab, PO, bid Start Date: 05/19/22 Status: Ordered metoprolol tartrate Start: 05/19/22 13:36:00 EDT Start Date: 05/19/22 Status: Ordered metroNIDAZOLE Start: 05/19/22 13:36:00 EDT Start Date: 05/19/22 Status: Ordered tamsulosin 0.4 mg oral capsule Start: 05/19/22 13:34:00 EDT Start Date: 05/19/22 Status: Ordered Mental Status 08/18/22 Barriers to Learning one year None evide nt Mandatory Health Literacy Documentation Yes Health Literacy Communication Barriers N ever Primary Language Tajik Problem List Condition Confirmation Course Effective Dates Status Health St [facility] Informant Diabetic foot ulcer Confirmed Active Puncture wound of foot, right Confirmed Active Diagnosis Diagnosis Type Effective Dates Health Status Cl inical Service Informant Diabetic foot ulcer Discharge Diagnosis 08/18/22 Puncture wound of foot, right Discharge Diagnosis 08/18/22 Social History Social History Type Response Smoking Status Never smoked cigaret live Sex Male Patient Care team information Personnel Name: DO Marai Trevor S Address: Address: [address] [place] [address] [place] [address]
--- OUTSIDE RECORDS SUMMARY | 2023-07-31 19:50 | External Medical Summary | Summary of Care ---
Author Name Unknown Organization [place] [address] Care Team Providers Care Dragline Engineer Name Role Phone Mejia Maria DO Primary Care Provider Reason for Visit * Reason Comments Follow Up Here for 2 week f/u blistering disorder. on his hands . Encounter Details Date Type Department Care Team Description 08/27/2022 Office Visit Dermatology [place] [address] [facility] [place] [address] Lily Piedra MD [address] [place] [address] Bullous disorder, unspecified* Allergies Active Allergy Reactions Severity Noted Date Comments Lisinopril Edema face/lips/tongue High 04/05/2018 documented as of this encounter (statuses as of 08/27/2022) Medications Medication Sig Dispensed Refills Start Date [...] 11 12/27/2021 Active FreeStyle Rose Marie 2 [place] Device Test blood sugars four times daily 1 Each 0 12/27/2021 Active Lantus SoloStar 100 UNIT/ML Subcutaneous Solution Pen-injector (Insulin Glargine)Indications :Type 2 diabetes mellitus with hemoglobin A1c goal of less than 8.0% (HCC) Inject under the skin 15 Units before bedtime. 15 mL 3 01/06/2022 Active Pen [place] 32G X 4 MMIndications:Type 2 diabetes mellitus [...] as of this encounter (statuses as of 08/27/2022) Active Problems Problem Noted Date Heart failure [...] with fat layer exposed 01/09/2022 Atherosclerosis of [place] coronary arter y without angina pectoris 01/09/2022 [...] as of this encounter (statuses as of 08/27/2022) Resolved Problems Problem Noted Date Resolved Date [...] as of this encounter (statuses as of 08/27/2022) Immunizations Name Administration Dates Next Due COVID-19 [...] this encounter Patient Instructions * Patient Instructions* Lily Piedra MD - 08/27/2022 9:29 AM EDT Everything You Should Know About Diabetic Blisters Medically reviewed by Luis Kohler M.D. By Carmencita Short Updated on July 30, 2018 If you have diabetes and experience the spontaneous eruption of blisters on your skin, they may well be diabetic blisters. These are also called bullosis diabeticorum or diabetic bullae. Although theblisters may be alarming when you first spot them, theyre painless and normally heal on their own without leaving scars. A number of skin conditions are associated with diabetes. Diabetic blisters are fairly rare. An article in the International Journal of Diabetes in Developing CountriesTrusted Source notes that in the [place], the disorder occurs in only 0.5 percent of people with diabetes. Diabetic blisters are twice as likely to be found in men than in women. Appearance of diabetic blisters Diabetic blisters most often appear on your legs, feet, and toes. Less frequently, they show up on hands, fingers, and arms. Diabetic blisters can be as large as 6 inches, though theyre normally smaller. Theyre often described as looking like blisters that occur when you get a burn, only without the pain. Diabetic blisters seldom appear as a single lesion. Rather, they are bilateral or occur in clusters. The skin surrounding the blisters isnt normally red or swollen. If it is, see your doctor promptly. Diabetic blisters contain a clear, sterile fluid, and theyre usually itchy. Read about the eight best remedies for itching. Treatment for diabetic blisters Given the risk of infection and ulceration when you have diabetes, you may want to see a gear hobber set up operator to rule out more serious skin conditions. Diabetic blisters usually heal in two to five weeks without intervention, according to an article in Clinical Diabetes. The fluid in the blisters is sterile. To prevent infection, you shouldnt puncture the blisters yourself, though if the lesion is large, your doctor may want to drain the fluid. This will keep the skin intact as a covering for the wound, which is seldom the case if the blister ruptures accidentally. Blisters may be treated with antibiotic cream or ointment and bandaged to protect them from furtherinjury. Your doctor may prescribe a steroidal cream if itching is severe. See a comparison of two antibiotic creams, Bacitracin and Neosporin. Ultimately, keeping your blood sugar levels under control is the most important step you can take to prevent diabetic blisters or to speed their healing if you already have them. Causes of diabetic blisters The cause of diabetic blisters is unknown. Many lesions appear with no known injury. Wearing shoes that dont fit well can cause blisters. The fungal infection Ratna albicans is another common cause of blisters in people who have diabetes. Youre more likely to get diabetic blisters if your blood sugar levels arent well controlled. People who have diabetic neuropathy, nerve damage that reduces sensitivity to pain, are more vulnerable to diabetic blisters. Peripheral artery disease is also thought to play a role. How to prevent diabetic blisters Its important to be vigilant about the condition of your skin if you have diabetes. Blisters andlesions may go unnoticed if you have neuropathy. There are steps you can take to prevent blisters and to keep from developing secondary infections when you have the lesions: Inspect your feet thoroughly each day. Protect your feet from injury by always wearing shoes and socks. Wear shoes that arent too tight. Break in new shoes slowly. Wear gloves when using scissors, hand tools, and gardening equipment that can cause blisters. Ultraviolet light causes blisters in some people. Apply sunscreen and limit exposure to the sun. HEALTHLINE NEWSLETTER Get our Diabetes email Twice a week well send you tips on eating wisely, news on breakthroughs, and more to help you stay on top of diabetes. Enter your email Your privacy is important to us When to see your doctor Contact your doctor if you develop blisters. Most blisters will heal themselves, but there is risk of secondary infection. The following symptoms warrant an immediate call to the doctor: redness around the blister swelling warmth radiating from the lesion pain fever that accompanies the above symptoms documented in this encounter Progress Notes * Lily Piedra MD - 08/27/2022 9:40 AM EDT Chief Complaint Patient presents with Follow Up Here for 2 week f/u blistering disorder. on his hands . History of Present Illness: Selvin Sebastian is a 77 year old male seen today for follow up of blistering on hands. 08/13/2022 (in office), Pt here with for follow up Biopsies healed well DM poorly controlled last year, but getting better States sister gets blisters too on hands, but no childhood or younger adult history of it in family Pt has history of legs wounds with slow healing, sees wound center, but now are healed A. 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 Amyloid stains were not interpretable REVIEW OF SYSTEMS: SKIN: No other new or changing moles. HEME/LYMPH: No new or enlarging lumps or bumps. MEDICA TIONS: Current Outpatient Medications Medication Sig Dispense Refill Silver sulfADIAZINE 1 % External Cream (Silvadene) Apply to sores on hands 3 times daily until healed 50 g 3 ONETOUCH ULTRA BLUE STRP USE TO CHECK GLUCOSE 4 TIMES DAILY (Patient not taking: Reported on 06/23/2022) 100 Strip 0 ONETOUCH DELICA LANCETS 33G MISC USE ONE TO CHECK GLUCOSE 4 TIMES DAILY (Patient not taking: Reported on 06/23/2022) 100 Each 0 Sildenafil Citrate (VIAGRA) 50 MG Tablet Take 1 Tab by mouth as needed for Erectile Dysfunction. 5 Tab 6 Glucose Blood (ONETOUCH VERIO) STRP Use up to 4 times a day E11.9 (Patient not taking: Reportedon 06/23/2022 ) 300 Strip 3 Fluorouracil 5 % External [...] Tablet before bedtime. (Patient taking differently: Take by mouth 5 mg 2 times a day . ) 180 Tablet 3 metFORMIN HCl ER 500 [...] 2 Each 11 FreeStyle Rose Marie 2 [place] Device Test blood sugars four times daily 1 Each 0 Lantus SoloStar 100 UNIT/ML Subcutaneous Solution Pen-injector (Insulin Glargine) Inject under the skin 15 Units before bedtime. 15 mL 3 Pen [place] 32G X 4 MM Use as directed [...] MORNING 100 Capsule2 Insulin Aspart 100 UNIT/ML Subcutaneous Solution 5 Units . Pt takes 5 to 6 units before meals (Patient not taking: Reported on 06/23/2022 ) Furosemide 40 MG Oral Tablet (Lasix) Take by mouth 1 Tablet in the morning. (Patient taking differently: Take by mouth 40 mg daily as needed for Other (edema). ) 90 Tablet 3 Atorvastatin Calcium 40 MG Oral Tablet (Lipitor) Take by mouth 1 Tablet in the morning. 90 Tablet 1 No current facility-administered medications for this visit. ALLERG IES: Lisinopril OBJECTIVE: GEN: Healthy, alert, no distress, appears oriented, pleasant and cooperative. SKIN: Hands - crusted healing blisters, solar elastosis ASSESS MENT/PLAN: 1. 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 Offered biopsy hand and abd fat to check for amyloid. Pt declines today but will think about it For wound care silvadene cream TID to blisters until healed. Bandage and protect as much as possible Follow-up: 1 yr skin check There were no barriers tolearning and no other pain was related to today's visit. The patient and/or person accompanying patient demonstrates understanding of the visit and treatment. Lily Piedra MD 08/27/2022 9:40 AM Ref: SELF[[id number]] NO STREET ADDRESS AVAILABLE None (office) None (fax) PCP: MEJIA MARIA [address] [place] [address] [phone] documented in this encounter Nursing Notes * Pam Ferreira LPN - 08/27/2022 9:14 AM EDT Patient identified by name and date of . Do you have any concerns about pain management for today's visit? No Living Will or Advance Directive for Health Care as noted on problem list. [facility] is a way you can talk to your provider online through e-mail. Would you like to sign up? I can activate it for you? ALREADY ACTIVE Chief Complaint Patient presents with Follow Up Here for 2 week f/u blistering disorder. on his hands . documented in this encounter Plan of Treatment Upcoming Encounters Date Type Specialty Care Team Description 09/01/2022 Nurse Only Family Medicine 2, Nurse [facility] [address] [place] [address] 09/03/2022 Office Visit Cardiology Arjun Nielsen, Del Gann DO [address] [place] [address] 09/19/2022 Office Visit Podiatry Kylie Burroughs DPM [address] [place] [address] 09/19/2022 Office Visit Pharmacy [facility] Erica [address] [facility] [place] [address] 02/03/2023 Office Visit Family Medicine Mejia Maria DO [address] [facility] [place] [address] 09/11/2023 Office Visit Dermatology Lily Piedra MD [address] [place] [address] Scheduled Procedures Name Priority Associated Diagnoses Date/Ti [...] Primary documented in this encounter Advance Directives Documents on File Type Date Recorded Patient Eyewear Consultant Expl anation Advanced Directive service a hi [...] on File Name Relationship Healthcare Agent [facility] Communication Farhana Sebastian Spouse Health Care Agent Care Teams Dragline Engineer Relationship Specialty Start Date End Date Mejia Maria DO [address] [place] [address] PCP - General Family Medicine 06/07/18 documented as of this encounter
--- OUTSIDE RECORDS SUMMARY | 2023-07-31 19:50 | External Medical Summary ---
Author Name Unknown Address Unknown Organization [facility] [address] [place] [address] Laboratory Report Ordering Provider Test Date Status BENJAMIN BA 09/01/2022 14:42:32 Final Observation Date Value Abnormality Reference (Units ) Status Vitamin B12 09/01/2022 14:42:32 441 232-1,24 5 (pg/mL) Final Performing Location [facility] [address] [place] [address]
--- OUTSIDE RECORDS SUMMARY | 2023-07-31 19:50 | External Medical Summary ---
Author Name Unknown Address Unknown Organization [facility] [address] [place] [address] Laboratory Report Ordering Provider Test Date Status BENJAMIN BA 09/01/2022 14:42:32 Final Observation Date Value Abnormality Reference (Units ) Status Triglyceride 09/01/2022 14:42:32 92 <=174 ( mg/dL) Final Performing Location [facility] [address] [place] [address]
--- OUTSIDE RECORDS SUMMARY | 2023-07-31 19:50 | External Medical Summary ---
Author Name Unknown Address Unknown Organization [facility] [address] [place] [address] Laboratory Report Ordering Provider Test Date Status BENJAMIN BA 09/01/2022 14:42:32 Final Observation Date Value Abnormality Reference (Units ) Status HbA1C 09/01/2022 14:42:32 9.0 Above high normal 4. 0-5.6 (%) Final Performing Location [facility] - [address] [place] [address]
--- OUTSIDE RECORDS SUMMARY | 2023-07-31 19:50 | External Medical Summary | Summary of Care ---
Author Name Unknown Organization [place] [address] Care Team Providers Care Manager Lvn Name Role Phone James Maria DO Primary Care Provider Reason for Visit * Reason Onset Date Comments Scan To Read 09/01/2022 diabetic retinop athy screening Encounter Details Date Type Department Care Team Description 09/01/2022 Telephone Family Practice [facility] [address] [place] [address] James Maria DO [address] [facility] [place] [address] Scan To Read (diabetic retinopathy screeni... Allergies Active Allergy Reactions Severity Noted Date Comments Lisinopril Edema face/lips/tongue High 04/05/2018 documented as of this encounter (statuses as of 09/03/2022) Medications Medication Sig Dispensed Refills Start Date [...] 11 12/27/2021 Active FreeStyle Rose Marie 2 [place] Device Test blood sugars four times daily 1 Each 0 12/27/2021 Active Lantus SoloStar 100 UNIT/ML Subcutaneous Solution Pen-injector (Insulin Glargine)Indications :Type 2 diabetes mellitus with hemoglobin A1c goal of less than 8.0% (HCC) Inject under the skin 15 Units before bedtime. 15 mL 3 01/06/2022 Active Pen [place] 32G X 4 MMIndications:Type 2 diabetes mellitus [...] as of this encounter (statuses as of 09/03/2022) Active Problems Problem Noted Date Heart failure [...] with fat layer exposed 01/09/2022 Atherosclerosis of [place] coronary arter y without angina pectoris 01/09/2022 [...] as of this encounter (statuses as of 09/03/2022) Resolved Problems Problem Noted Date Resolved Date [...] as of this encounter (statuses as of 09/03/2022) Immunizations Name Administration Dates Next Due COVID-19 [...] encounter Miscellaneous Notes * Telephone Encounter - Jeremiah Bermudez MD - 09/01/2022 3:20 PM EDT Retinal Scan Imaging [place] [id number] Retinal Scan Interpretation: There is no retinopathy in both eyes Diabetes Retinal Imaging Care Plan: The retinal scan results are normal - I will forward this encounter to the Ophthalmology DM Letter Pool [[id number]], they will send a normal retinal scan letter to the patient, and the patient will be seen back for a yearly scan. Jeremiah Bermudez MD 09/01/2022 3:20 PM * Telephone Encounter - Leona Penn LPN - 09/01/2022 2:33 PM EDT A Diabetic Telemed Eye image was taken and requires your interpretation for Dr Maria. Please check your inbasket for image. Patient prefers to be seen at [facility] if a follow-up appointment is needed. documented in this encounter Plan of Treatment Upcoming Encounters Date Type Specialty Care Team Description 09/19/2022 Office Visit Podiatry Kylie Burroughs DPM [address] [place] [id number] 09/22/2022 Office Visit Pharmacy [facility]a [address] [facility] [place] [address] 12/10/2022 Office Visit Cardiology Del Díaz Jr., DO [address] [place] [address] 02/03/2023 Office Visit Family Medicine James Maria, DO [address] [place] [address] 09/11/2023 Office Visit Dermatology Lily Piedra MD [address] [place] [address], [place] [address] Scheduled Procedures Name Priority Associated Diagnoses Date/Ti [...] Documents on File Type Date Recorded Patient Manager Helpdesk Expl anation Advanced Directive service a hi [...] Spouse Health Care Agent Care Teams Manager Lvn Relationship Specialty Start Date End Date James Maria DO [address] [place] [address] PCP - General Family Medicine 06/07/18 documented as of this encounter
--- OUTSIDE RECORDS SUMMARY | 2023-07-31 19:50 | External Medical Summary ---
Author Name Unknown Address Unknown Organization K01:LAB[facility]ATORY [facility] - [address] [facility] [address] Laboratory Report Ordering Provider Test Date Status BENJAMIN BA 09/01/2022 14:42:32 Final Observation Date Value Abnormality Reference (Units ) Status SYNC LEUKOCYTES IN BLOOD BY AUTOMATED COUNT 09/01/2022 14:42:32 9.96 4.00-10.80 (K/uL) Final Segs 09/01/2022 14:42:32 59.5 40.0-75.0 (%) Final Lymphs % 09/01/2022 14:42:32 31.2 18.0-42.0 (%) Final Monos 09/01/2022 14:42:32 6.1 1.0-11.0 (%) Final Eosinophils 09/01/2022 14:42:32 2.1 0.0-6.0 (%) Final Basos 09/01/2022 14:42:32 0.6 0.0-2.0 (%) Final Immature Granulocyte, Percent 09/01/2022 14:42:32 0.5 0.0-2.0 (%) Final Absolute Segs 09/01/2022 14:42:32 5.92 1.80-7.70 (K/uL) Final Lymphs, absolute 09/01/2022 14:42:32 3.11 1.00-4.80 (K/ul) Final Monos, Abs 09/01/2022 14:42:32 0.61 0.00-1.10 (K/uL) Final Eos, Abs 09/01/2022 14:42:32 0.21 0.00-0.70 (K/uL) Final Basos, Abs 09/01/2022 14:42:32 0.06 0.00-0.20 (K/uL) Final Immature Granulocytes, Number 09/01/2022 14:42:32 0.05 0.00-0.20 (K/uL) Final Performing Location LABORATORY [facility] [place] - [address] [facility] [address]
--- OUTSIDE RECORDS SUMMARY | 2023-07-31 19:50 | External Medical Summary ---
Author Name Unknown Address Unknown Organization K01:LABORATORY [facility] [place] - [address] [facility] [address] Laboratory Report Ordering Provider Test Date Status BENJAMIN BA 09/01/2022 14:42:32 Final Observation Date Value Abnormality Reference (Units ) Status WBC, Total 09/01/2022 14:42:32 9.96 4.00-10.80 (K/uL) Final RBC 09/01/2022 14:42:32 4.61 4.50-5.25 (M/uL) Final Hemoglobin 09/01/2022 14:42:32 13.6 Below low normal 14.0-16.8 (g/dL) Final HCT 09/01/2022 14:42:32 41.6 40.0-48.4 (%) Final MCV 09/01/2022 14:42:32 90.2 82.0-99.5 (fL) Final MCH 09/01/2022 14:42:32 29.5 27.0-34.0 (pg) Final MCHC 09/01/2022 14:42:32 32.7 32.0-36.0 (g/dL) Final RDW 09/01/2022 14:42:32 12.5 11.5-15.5 (%) Final Platelets 09/01/2022 14:42:32 298 140-400 (K/uL) Final MPV 09/01/2022 14:42:32 10.9 6.6-11.1 (fL) Final Nucleated erythrocytes/100 leukocytes [Ratio] in Blood by Automated count 09/01/2022 14:42:32 0 <=0 (/100 WBCs) Final Performing Location LABORATORY [facility] [place] - [address] [place] [address]
--- OUTSIDE RECORDS SUMMARY | 2023-07-31 19:50 | External Medical Summary | Summary of Care ---
Author Name Unknown Organization [place] [address] Care Team Providers Care Sccm Administrator Name Role Phone James Maria DO Primary Care Provider Encounter Details Date Type Department Care Team Description 08/18/2022 Scan Encounter Family Practice [facility] [address] [place] [address] James Maria DO [address] [place] [address] <No scans attached> Allergies Active Allergy Reactions Severity Noted Date [...] 11 12/27/2021 Active FreeStyle Rose Marie 2 [place] Device Test blood sugars four times daily 1 Each 0 12/27/2021 Active Lantus SoloStar 100 UNIT/ML Subcutaneous Solution Pen-injector (Insulin Glargine)Indications :Type 2 diabetes mellitus with hemoglobin A1c goal of less than 8.0% (HCC) Inject under the skin 15 Units before bedtime. 15 mL 3 01/06/2022 Active Pen [place] 32G X 4 MMIndications:Type 2 diabetes mellitus [...] with fat layer exposed 01/09/2022 Atherosclerosis of [place] coronary arter y without angina pectoris 01/09/2022 [...] Care Team Description 09/03/2022 Office Visit Cardiology Del Díaz Jr., DO [address] [place] [address] 09/19/2022 Office Visit Podiatry Kylie Burroughs, REMEDIOS [address] [place] [address] [place] [address] 09/19/2022 Office Visit Pharmacy [facility] Erica [address] [place] [address] 02/03/2023 Office Visit Family Medicine James Maria DO [address] [place] [address] Scheduled Procedures Name Priority Associated Diagnoses Date/Ti [...] Documents on File Type Date Recorded 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
--- OUTSIDE RECORDS SUMMARY | 2023-07-31 19:50 | External Medical Summary | Summary of Care ---
Author Name Unknown Organization [place] [address] Care Team Providers Care Director Law Enforcement Name Role Phone James Maria DO Primary Care Provider Reason for Visit * Reason Onset Date Comments Health Maintenance 08/21/2022 Encounter Details Date Type Department Care Team Description 08/21/2022 Telephone Family Practice [facility] [address] [facility] [place] [address] James Maria DO [address] [facility] [place] [address] Health Maintenance Allergies Active Allergy Reactions Severity Noted Date Comments Lisinopril Edema face/lips/tongue High 04/05/2018 documented as of this encounter (statuses as of 08/21/2022) Medications Medication Sig Dispensed Refills Start Date [...] 11 12/27/2021 Active FreeStyle Rose Marie 2 [place] Device Test blood sugars four times daily 1 Each 0 12/27/2021 Active Lantus SoloStar 100 UNIT/ML Subcutaneous Solution Pen-injector (Insulin Glargine)Indications :Type 2 diabetes mellitus with hemoglobin A1c goal of less than 8.0% (HCC) Inject under the skin 15 Units before bedtime. 15 mL 3 01/06/2022 Active Pen [place] 32G X 4 MMIndications:Type 2 diabetes mellitus [...] as of this encounter (statuses as of 08/21/2022) Active Problems Problem Noted Date Heart failure [...] fat layer exposed 01/09/2022 Atherosclerosis of [place] coronary arter y without angina pectoris [...] as of this encounter (statuses as of 08/21/2022) Resolved Problems Problem Noted Date Resolved Date [...] as of this encounter (statuses as of 08/21/2022) Immunizations Name Administration Dates Next Due COVID-19 [...] Telephone Encounter - Vania Brownlee CMA - 08/21/2022 9:03 AM EDT Care Gaps Comprehensive Care Outreach [...] 06/05/2022 06/05/2023 Care Gap Outreach Action Taken: Spoke to patient scheduled with mobile bus documented in this encounter Plan of Treatment Upcoming Encounters Date Type Specialty Care Team Description 09/01/2022 Nurse Only Family Medicine 2, Nurse [facility] Mobile [address] [facility] [place], [place] [address] 09/03/2022 Office Visit Cardiology Del Díaz Jr., DO [address] [facility] [place] [address] 09/19/2022 Office Visit Podiatry Kylie Burroughs, DP [address] [place] [place] [address] 09/19/2022 Office Visit Pharmacy [facility] [address] Erica [address] [place] [address] 02/03/2023 Office Visit [facility] [place] [address] Scheduled Procedures Name Priority Associated Diagnoses Date/Ti [...] as of this encounter Visit Diagnoses Diagnosis Screening for diabetic retinopathy- Primary Screening for other eye conditions documented in this encounter Advance Directives Documents on File Type Date Recorded 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
--- OUTSIDE RECORDS SUMMARY | 2023-07-31 19:50 | External Medical Summary ---
Author Name Unknown Address Unknown Organization K01:[place] [facility] [place] [address] [place] [address] Laboratory Report Ordering Provider Test Date Status BENJAMIN BA 09/01/2022 14:42:32 Final Observation Date Value Abnormality Reference (Units ) Status BUN 09/01/2022 14:42:32 21 Above high normal 6-20 (mg/dL) Final Creatinine 09/01/2022 14:42:32 1.1 0.6-1.2 (mg/dL) Final Glomerular filtration rate/1.73 sq M.predicted [Volume Rate/Area] in Serum, Plasma or Blood by Creatinine-based formula (CKD-EPI) 09/01/2022 14:42:32 71 >=60 (mL/min) Final Performing Location [facility] [place] [address] [place] [address]
--- OUTSIDE RECORDS SUMMARY | 2023-07-31 19:50 | External Medical Summary | Summary of Care ---
Author Name Unknown Organization [place] [address] Care Team Providers Care Rack Pusher Name Role Phone James Maria Primary Care Provider Reason for Visit * Reason Onset Date Comments Test Results Biopsy 08/22/2022 Encounter Details Date Type Department Care Team Description 08/22/2022 Telephone Dermatology [facility] Princess Troutman [address] [facility] [place] [address] Lily Piedra MD [address] [facility] [place] [address] Test Results Biopsy Allergies Active Allergy Reactions Severity Noted Date Comments Lisinopril Edema face/lips/tongue High 04/05/2018 documented as of this encounter (statuses as of 08/26/2022) Medications Medication Sig Dispensed Refills Start Date [...] 11 12/27/2021 Active FreeStyle Rose Marie 2 [place] Device Test blood sugars four times daily 1 Each 0 12/27/2021 Active Lantus SoloStar 100 UNIT/ML Subcutaneous Solution Pen-injector (Insulin Glargine)Indications :Type 2 diabetes mellitus with hemoglobin A1c goal of less than 8.0% (HCC) Inject under the skin 15 Units before bedtime. 15 mL 3 01/06/2022 Active Pen [place] 32G X 4 MMIndications:Type 2 diabetes mellitus [...] as of this encounter (statuses as of 08/26/2022) Active Problems Problem Noted Date Heart failure [...] with fat layer exposed 01/09/2022 Atherosclerosis of [place] coronary arter y without angina pectoris [...] as of this encounter (statuses as of 08/26/2022) Resolved Problems Problem Noted Date Resolved Date [...] as of this encounter (statuses as of 08/26/2022) Immunizations Name Administration Dates Next Due COVID-19 [...] * Telephone Encounter - MICHEL Cooney - 08/26/2022 12:19 PM EDT When I called pt to scheduled f/u appt (spoke to ) she said someone called about the biopsy results. I read her Dr. Piedra message/results and scheduled pt's f/u appt for tomorrow. * Telephone Encounter - Trini Estrada LPN - 08/25/2022 9:09 AM EDT Message left for patient to return call for results * Telephone Encounter - Dxiie Vivas LPN - 08/22/2022 3:03 PM EDT LMOM for patient to return call for results. * Telephone Encounter - Dixie Vivas LPN - 08/22/2022 3:03 PM EDT ----- Message from Lily Piedra MD sent at 08/22/2022 2:40 PM EDT ----- Please let pt know that biopsy didn't identify specific underlying cause for blistering. It may be from diabetes (most likely, but if wanting to exclude all other possibilities I can do one more biopsy from back of hand to check for another rare disorder. Thanks! documented in this encounter Plan of Treatment Upcoming Encounters Date Type Specialty Care Team Description 08/27/2022 Office Visit Dermatology Lily Piedra MD [address] [place] [address], [place] [address] 09/01/2022 Nurse Only Family Medicine 2, Nurse [facility] [place] Mobile [address] [place] [address] 09/03/2022 Office Visit Cardiology Del Díaz Jr., [address] [place] [address] 09/19/2022 Office Visit Podiat[facility] Kylie Burroughs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
--- OUTSIDE RECORDS SUMMARY | 2023-07-31 19:51 | External Medical Summary | Summary of Care ---
Author Name Unknown Organization [place] [address] Care Team Providers Care Printing Assistant Name Role Phone James Maria Primary Care Provider Reason for Visit * Reason Comments Follow Up Patient here for a c heck of a few spots on his scalp and ears. He also has been getting blisters on his hands that started in the past few weeks. Has some scabbed areas on arms. * Evaluate & Treat - Unlimited Visits (Within 10 days (routine)) - Authorized Specialty Diagnoses / Procedures Referred By Collin leigh Referred To Contact Dermatology Diagnoses Rash and nonspecific skin eruption [facility]neros [facility] [address] [facility] [address] Referral ID Status Reason Start Date Expiration Date Visits Requested Visits Authorized Authorized Specialty Services Required 04/28/2022 [id number] Encounter Details Date Type Department Care Team Description 08/13/2022 Office Visit Dermatology [facility] [place] [address] [place] [address] Lily Piedra MD [address] [facility] [place] [address] Bullous disorder*; Actinic keratoses; History of skin cancer Allergies Active Allergy Reactions Severity Noted Date Comments Lisinopril Edema face/lips/tongue High 04/05/2018 documented as of this encounter (statuses as of 08/13/2022) Medications Medication Sig Dispensed Refills Start Date [...] 11 12/27/2021 Active FreeStyle Rose Marie 2 [place] Device Test blood sugars four times daily 1 Each 0 12/27/2021 Active Lantus SoloStar 100 UNIT/ML Subcutaneous Solution Pen-injector (Insulin Glargine)Indications :Type 2 diabetes mellitus with hemoglobin A1c goal of less than 8.0% (HCC) Inject under the skin 15 Units before bedtime. 15 mL 3 01/06/2022 Active Pen [place] 32G X 4 MMIndications:Type 2 diabetes mellitus [...] as of this encounter (statuses as of 08/13/2022) Active Problems Problem Noted Date Heart failure 06/05/2022 Cellulitis of toe of left foot Last [...] with fat layer exposed 01/09/2022 Atherosclerosis of [place] coronary arter y without angina pectoris 01/09/2022 [...] as of this encounter (statuses as of 08/13/2022) Resolved Problems Problem Noted Date Resolved Date [...] as of this encounter (statuses as of 08/13/2022) Immunizations Name Administration Dates Next Due COVID-19 [...] Progress Notes * Lily Piedra MD - 08/13/2022 9:17 AM EDT Chief Complaint Patient presents with Follow Up Patient here for a check of a few spots on his scalp and ears. He also has been getting blisters onhis hands that started in the past few weeks. Has some scabbed areas on arms. Referring: BARTOLO Bentley Pt here with his , he has minimal hearing. He can hear some things when she speaks very loudly in R ear, also uses a tablet or written communication, no ASL HPI: 77 year old male with primary complaint of a skin eruption today. Referred by pcp with ask a doc 04/25 : Pt reporting past 10 days has blister that erupt on the fingers that open then scab. No pain, itching or drainage. No lesions anywhere else. No lesion on feet. He denies burning himself. Please see photos. Keeping hands clean and dry. Photos uploaded for review Still getting blisters, can't say whether sun exposure worsens them. asymptomatic blisters. Only new med in past year is eliquis and some temporary antibiotics last spring. 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 15 mL 3 Pen [place] 32G X 4 MM Use as directed [...] No current facility-administered medications for this visit. Review of patient's allergies indicates: Allergen Reactions Lisinopril Edema face/lips/tongue Exam: Well appearing in NAD. [place] type 2 skin. Left post helix, frontal scalp and forehead x3 Flat papule(s) with raised erythematous scaly circumscribed area with franco/white keratotic scale bilateral dorsal hands with few fluid filled blisters <1 cm and ecchymoses, faint erythema around some blisters Scattered benign appearing lesions over examined skin including waxy flesh- colored, greyish brown benign and non-inflamed appearing stuck-on papules and plaques and benign and uniform appearing brownmacules and patches in sun exposed areas. Impression/Plan: 1. blistering of hands and forearms differential diagnosis immunobullous, pct, phototoxic drug, bullous diabetacorum Somewhat, but not severely bothering pt, but he wants to know why he is blistering. Recommended biopsy and direct immunofluorescence for further information. May need additional lab studies pending results Recommended photoprotection high spf and /or gloves for mechanical protection of hands Procedure Note Punch Biopsy x2 Discussed the risks, benefits and alternatives of punch biopsy for pathological interpretation and verbal informed consent was obtained. Questions were answered. Risks including infection, bleeding, scar and expected care were outlined. Patient understands that further treatment may be recommended for concerning pathology. The lesion in questions was identified with skin marking pen and photographed. Location: R 3rd finger at lesion margin and R 3rd finger perilesional. The site was prepped with alcohol and anesthetized with <2.5mL buffered 0.5% lidocaine with 1:200,000 epinephrine. A 4 mm punch tool was used to remove lesion. Specimen in formalin to dermatopathology. 5-0 Prolene simple suture, dressing applied and wound instructions given. We will correspond regarding results and further treatment recommendations as appropriate. Suture removal: 2 wks Specimen (A) Specimen Description: R 3rd dorsal finger Specimen (B) Specimen Description: perilesional R 3rd dorsal finger for routine DIF all conjugates 2. Actinic keratosis Precancerous nature of these lesions was discussed with the patient and various options for field or spot treatment vs observation along with their respective applicable risks and benefits were also discussed. Procedure Note Cryotherapy: Discussed the risks, benefits and alternatives of cryotherapy and verbal informed consent was obtained. Questions were answered. Risks including infection, bleeding, scar, lesions recurrence and expected care were outlined. 4 site(s) were treated with 5-10 second freeze cycle x1 (location in exam) Wound care instructions given. Recheck if not resolved after healing or lesions recur. 3. history of Actinic keratosis and nonmelanoma skin cancer 4. Solar lentigines seborrheic keratosis Benign. Reassurance. Return to clinic 2 wks documented in this encounter Nursing Notes * Kathy Nevarez LPN - 08/13/2022 9:11 AM EDT Patient identified by name and date of . Do you have any concerns about pain management for today's visit? No Living Will or Advance Directive for Health Care as noted on problem list. [facility] is a way you can talk to your provider online through e-mail. Would you like to sign up? I can activate it for you? NO Chief Complaint Patient presents with Follow Up Patient here for a check of a few spots on his scalp and ears. He also has been getting blisters onhis hands that started in the past few weeks. Has some scabbed areas on arms. documented in this encounter Plan of Treatment Upcoming Encounters Date Type Specialty Care Team Description 09/03/2022 Office Visit Cardiology Arjun Nielsen, Del Gann DO [address] [facility] [place] [address] 09/19/2022 Office Visit Podiatry Kylie Burroughs, NANIM [address] [place] [address] 09/19/2022 Office Visit [facility]acy [facility] [place]a [address] [place] [address] 02/03/2023 Office Visit Family Medicine James Maria DO [address] [place] [address] Scheduled Orders Name Type Priority Associated Diagnoses Orde r Schedule SURGICAL PATHOLOGY Pathology Routine Bullous disorder Ordered: 08/13/2022 Scheduled Procedures Name Priority Associated Diagnoses Date/Ti [...] of this encounter Visit Diagnoses Diagnosis Bullous disorder- Primary Unspecified bullous dermatosis Actinic keratoses Actinic keratosis History of skin cancer Personal history of other malignant neoplasm of skin documented in this encounter Advance Directives Documents on File Type Date Recorded 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
--- OUTSIDE RECORDS SUMMARY | 2023-07-31 19:51 | External Medical Summary | Summary of Care ---
Author Name Unknown Organization [place] [address] Care Team Providers Care Auto Mechanics Instructor Name Role Phone James Maria Primary Care Provider Reason for Visit * Reason Onset Date Comments [facility]: Maintenance r eturn Medication Administration 08/05/2022 Flu an d/or Pneumo Inj Encounter Details Date Type Department Care Team Description 08/05/2022 Home Visit [facility], [facility] 132 [facility] [place] [address] Elda Ponce, RN 132 [facility] [place] [address] Need for prophylactic vaccination and inoculation against influenza*; Advanced care planning/counseling discussion Allergies Active Allergy Reactions Severity Noted Date Comments Lisinopril Edema face/lips/tongue High 04/05/2018 documented as of this encounter (statuses as of 08/05/2022) Medications Medication Sig Dispensed Refills Start Date End Date Status ONETOUCH ULTRA BLUE STRP USE TO CHECK GLUCOSE 4 TIMES DAILY 100 Strip 0 7 Active Additional Information Patient not taking. Reported on 06/23/2022 ONETOUCH DELICA LANCETS 33G MISC USE ONE TO CHECK GLUCOSE 4 TIMES DAILY 100 Each 0 7 Active Additional Information Patient not taking. Reported on 06/23/2022 Sildenafil Citrate (VIAGRA) 50 MG TabletIndications:I mpotence of organic origin Take 1 Tab by mouth as needed for Erectile Dysfunction. 5 Tab 6 7 Active Glucose Blood (ONETOUCH VERIO) STRP Use up to 4 times a day E11.9 300 Strip 3 7 Active Additional Information Patient not taking. Reported [...] 3 2 Active Additional Information Patient taking differently: 5 [...] 11 2 Active FreeStyle Rose Marie 2 [place] Device Test blood sugars four times daily 1 Each 0 2 Active Lantus SoloStar 100 UNIT/ML Subcutaneous Solution Pen-injector (Insulin Glargine)Indication s:Type 2 diabetes mellitus with hemoglobin A1c goal of less than 8.0% (HCC) Inject under the skin 15 Units before bedtime. 15 mL 3 2 Active Pen Reading 32G X 4 MMIndications:Type 2 [...] 2 2 Active Insulin Aspart 100 UNIT/ML Subcutaneous Solution 5 Units . Pt takes 5 to 6 units before meals 0 2 Active Furosemide 40 MG Oral Tablet (Lasix)Indications: Chronic atrial fibrillation (HCC) Take by mouth 1 Tablet in the morning. 90 Tablet 3 2 Active Additional Information Patient taking differently: 40 mg Oral DAILY PRN, Other, edema, Reported on 06/23/2022 Atorvastatin Calcium 40 MG Oral Tablet (Lipitor)Indication s:cholesterol Take by mouth 1 Tablet in the morning. 90 Tablet 1 2 Active Silver sulfADIAZINE 1 % External Cream (Silvadene) Apply topically to affected area daily. Apply to to the left foot ulcer once daily. Cover with dry dressing. Perform once daily. 50 g 1 1 08/05/20 22 Discontinued documented as of this encounter (statuses as of 08/05/2022) Active Problems Problem Noted Date Heart failure [...] as of this encounter (statuses as of 08/05/2022) Resolved Problems Problem Noted Date Resolved Date [...] as of this encounter (statuses as of 08/05/2022) Immunizations Name Administration Dates Next Due COVID-19 [...] Sign Reading Time Taken Comments Blood Pressure 118/62 08/05/2022 1:55 PM EDT Pulse 56 08/05/2022 1:55 PM EDT Temperature 36.6 C (97.8 F) 08/05/2022 1:55 PM ED T Respiratory Rate 20 08/05/2022 1:55 PM EDT Oxygen Saturation 97% 08/05/2022 1:55 PM EDT Inhaled Oxygen Concentration - - Weight - - Height - - Body Mass Index - - documented in this encounter Progress Notes * Elda Ponce RN - 08/05/2022 1:46 PM EDT [facility] Electronic Scale Assembler And Tester Monthly Visit Date: 08/05/2022 Time: 1:46 PM Name: Selvin Sebastian : 1945 Situation: return Background: Pafib, htn, CAD, moderate aortic stenosis, CHF, cellulitis, DM, dyslipidemia, neuropathy, DDD, BPH,b/l hearing loss [facility] Enrollment Date: 11/20/21 Last [facility] Provider Visit: 06/05/22 Utilization: 06/05/22 - cellulitis toe of L foot, culture, Keflex, Wound Clinic Managed Dr. Catalan - [facility] Assessment: Visited pt and at pt's sister's home in [place] Wounds are healed and has been d/c'd from [facility] Has been staying with his and daughter in [place] Is technically still homeless Has info, per , about ''Out of the Cold'' program but pt [place] to register [place] Checking bsgs 6-10x/daily Range 136-226 over past two days Wearing Freestyle Rose Marie and denies issues with device Wearing his new diabetic shoes Physical Exam: BP 118/62 | Pulse 56 | Temp 36.6 C (97.8 F) | Resp 20 | SpO2 97% Pain 0 Physical Exam HENT: Head: Normocephalic. Cardiovascular: Rate and Rhythm: Normal rate. Rhythm irregular. Comments: Irregularly irregular systolic murmur noted Pulmonary: Effort: Pulmonary effort is normal. Breath sounds: Normal breath sounds. Abdominal: General: Bowel sounds are normal. Palpations: Abdomen is soft. Musculoskeletal: Right lower leg: Edema present. Left lower leg: Edema present. Comments: RLE: well healing wound present to the sole of R foot. Skin peeling surrounding wound. No erythema or drainage noted LLE: Deep fissure-like wound in between the great toe and sole of the foot. Thick cream/brown drainage noted with surrounding erythema to distal foot DP pulses not palpable bilaterally Cap refill <2 seconds bilaterally +1 pitting edema bilaterallyl Skin: General: Skin is warm and dry. Capillary Refill: Capillary refill takes less than 2 seconds. Neurological: General: No focal deficit present. Mental Status: He is alert. Gait: Gait normal. Psychiatric: Mood and Affect: Mood normal. Problems/Symptoms: Review of Systems Constitutional: Negative. HENT: Positive for hearing loss (very DEERING - communicate with white board). Eyes: Negative. Respiratory: Negative. Cardiovascular: Positive for leg swelling (+2 b/l le pitting). Negative for chest pain and palpitations. Gastrointestinal: Negative. Endocrine: Negative. Genitourinary: Negative. Musculoskeletal: Positive for arthralgias and gait problem. Skin: Negative for wound. Allergic/Immunologic: Negative. Hematological: Bruises/bleeds easily. Psychiatric/Behavioral: Negative. All other systems reviewed and are negative. Medication Reconciliation: (See medication list) Does patient take medications as ordered: Yes Patient Well Being: Remains homeless Has been staying with and daughter much of time [facility] Completed this Visit: No. Routine visit and No falls since last visit Advanced Care Planning: No documentation, note updated. ACP Schmidt Info: DNR. DNI. Comfort measures only. Do not send to hospital unless comfort cannot be achieved at home. Elda Ponce RN 08/05/2022 2:24 PM Reinforcement/Education: Reinforced safety education and fall prevention. and Reinforced medication regimen. Timing., Dosing. and Purspose. Treatment/Plan: MTM follows for DM [facility] manages wounds [facility] Clinic for DM angeline Escobaralfredito Trotter Referral made to [facility] Patient's 'Red Flags': Instructed to report any signs of infection: Redness, swelling, uncontrolled pain, green/yellow drainage, foul odor or fever. Increased edema Unable to get insulin from sister's home (lives in van, stores new insulin pens at sister's home) Patient's Goals of Care: Hear better Wound healing Stay out of hospital Home Interventions Provided: Home Intervention: Other; flu vaccine Reinforced current Plan of Care, including self-management and medication regimen Updated Advanced Care Planning Note Updated Exacerbation Plan Patient Needs to Remember: Call [facility] with red flags Referrals Needed: none Follow Up: Is there cellular connectivity/connectivity in the home? Yes Does the patient have internet in the home? No Patient encouraged to call the intake phone number for all urgent but not emergent issues. Is the patient new to [facility] [facility] within the last 30 days? Yes, Is this a Transitions of Care visit? No Provider is in agreement with Plan of Care: Yes Scheduled to follow up with patient per PCP and specialists as scheduled. Elda Ponce RN 08/05/2022 1:46 PM PRE - ADMINISTRATION DOCUMENTATION Are you experiencing any cold symptoms or fever? No Have you had Guillain-Montezuma Syndrome (an illness that causes paralysis) within the last 6 weeks? No Have you had the flu shot in the past? YES Have you ever had a reaction to the flu shot? No Elda Ponce RN, 08/05/2022 2:20 PM Immunization Administration Documentation Time Out Procedure Performed: Yes Patient Identified (Ask Name/Date of ): Yes Does the patient have a fever greater than 101 degrees today? No Patient allergic to latex? No VFC Stock: No Injection(s) verified: Yes, Injection Name: Fluzone Verified Side and Site: Yes Verified Shot(s) with Parent(s)/Patient: Yes [facility] Graduation Progress Episode Start Date: Noted: 11/20/2021 [facility] Cohort: Focused Care Management (3-9 months) Active [facility] Care Team No data was found Updated: 08/05/2022 2:27 PM Active [facility] In-Home Services No data was found Additional Information: Has been d/c'd from [facility] Updated: 08/05/2022 2:27 PM Clinical Utilization No unanticipated acute utilization for a minimum of 2 months: Met No home-based advanced interventions for a minimum of 1 month: Met Additional Information: No data was found Updated: 08/05/2022 2:27 PM Self-Management and Exacerbation Planning "Red Flags" identified with EHR documentation, patient education, and teach back: Met "Self-Management Plan" identified with EHR documentation, patient education, and teach back: Met "Exacerbation Plan" identified with EHR documentation, patient education, and teach back: Met Additional Information: No data was found Updated: 08/05/2022 2:28 PM Social Determinants of Health [facility]DoH identified, documented in the EHR and solution(s) in place: In Progress Additional Information: Homeless - staying with and daughter much of time but their apt only allow 2 people to stay at apt. Pt has hoarding d/o and home has been condemned. [facility] Pt and have home in spring but per their reports they are unable to afford fourchette sewer and water hookups. Referral was made to [facility], Zaira Ballard, Rotary Driller Helper. Pt was given application and has been in touch with Mrs. Ballard for potential financial assistance. Patient also has number for Out of the Cold Program but has declined to register for program ([facility]) Updated: 08/05/2022 2:35 PM Patient-Centered Communication ACP Activity: In Progress ACP Note: In Progress Advanced Directive documents up-to-date and scanned in the EHR: In Progress Additional Information: No data was found Updated: 08/05/2022 2:35 PM Care Coordination Remote Patient Monitoring in place and transition communicated: Not Started Medication List up-to-date and adequate supply in the home: Met PCP and relevant Specialty appointments scheduled: Met Additional Information: No data was found Updated: 08/05/2022 2:35 PM documented in this encounter Miscellaneous Notes * ACP (Advance Care Planning) - Elda Ponce RN - 08/05/2022 2:20 PM EDT Patient-centered Communication 08/05/2022 The patient/surrogate voluntarily agreed to participate in advance care planning discussion. They were advised that this is a separate service which may incur out of pocket cost in the form of copayment and/or deductibles. Location: sister's home Individual(s) present for conversation: Patient and Spouse Decisions Additional Comments Discerning What Matters Most to the Patient: Source: Content from Respecting Choices Program Aligning Care With What Matters Most: Rationale for Decisions Source: Content from Respecting Choices Program 15 minutes spent in direct pzuj-op-doyd discussion today, Elda Ponce RN documented in this encounter Plan of Treatment Upcoming Encounters Date Type Specialty Care Team Description 08/13/2022 Office Visit Dermatology Lily Piedra MD [address] [facility] [place] [address] 09/03/2022 Office Visit Cardiology Del Díaz Jr., DO 132 [place] [address] 09/19/2022 Office Visit Podiatry Kylie Burroughs DPM [address] [place] [address] [place] [address] 09/19/2022 Office Visit Pharmacy [facility] Erica [address] [place] [address] 02/03/2023 Office Visit Family Medicine James Maria DO 132 [place] [address] Scheduled Procedures Name Priority Associated Diagnoses Date/Ti [...] as of this encounter Visit Diagnoses Diagnosis Need for prophylactic vaccination and inoculation against influenza- Primary Advanced care planning/counseling discussion Other specified counseling documented in this encounter Advance Directives Documents on File Type Date Recorded Patient Cd Technician Expl 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 Relationship Healthcare Agent Relationshi p Communication Farhana Auman Spouse Health Care Agent Care Teams Auto Mechanics Instructor Relationship Specialty Start Date End Date James Maria, [address] [facility] [place] [address] PCP - General Family Medicine 06/07/18 documented as of this encounter
--- OUTSIDE RECORDS SUMMARY | 2023-07-31 19:51 | External Medical Summary | Summary of Care ---
Author Name Unknown Organization [place] [address] Care Team Providers Care Ice Cream Man Name Role Phone James Maria DO Primary Care Provider Encounter Details Date Type Department Care Team Description 07/04/2022 Scan Encounter Family Practice [facility] [address] [place] [address] James Maria DO [address] [place] [address] <No scans attached> Allergies Active Allergy Reactions Severity Noted Date Comments Lisinopril Edema face/lips/tongue High 04/05/2018 documented as of this encounter (statuses as of 08/08/2022) Medications Medication Sig Dispensed Refills Start Date [...] 11 12/27/2021 Active FreeStyle Rose Marie 2 [place] Device Test blood sugars four times daily 1 Each 0 12/27/2021 Active Lantus SoloStar 100 UNIT/ML Subcutaneous Solution Pen-injector (Insulin Glargine)Indications :Type 2 diabetes mellitus with hemoglobin A1c goal of less than 8.0% (HCC) Inject under the skin 15 Units before bedtime. 15 mL 3 01/06/2022 Active Pen [place] 32G X 4 MMIndications:Type 2 diabetes mellitus [...] as of this encounter (statuses as of 08/08/2022) Active Problems Problem Noted Date Heart failure [...] with fat layer exposed 01/09/2022 Atherosclerosis of [place] coronary arter y without angina pectoris 01/09/2022 [...] as of this encounter (statuses as of 08/08/2022) Resolved Problems Problem Noted Date Resolved Date [...] as of this encounter (statuses as of 08/08/2022) Immunizations Name Administration Dates Next Due COVID-19 mRNA, LNP-s, No Pre serve, 2-Dose Series (Moderna) 03/24/2021,02/22/2021 COVID-19, LNP-s, No Preserve , Ministerio-sucrose, Ages 12+ (Pfizer) 02/25/2022 Pneumococcal Conjugate Vacc, 13 Valent (Prevnar) 12/24/2015 Pneumococcal Polysaccharide PPV23 (Pneumovax) 07/23/2011 Seasonal Influenza, Quadriva lent Hd (Fluzone Hd) 08/10/2021 Seasonal Influenza, Quadriva lent, No Preserve, 6 [...] Office Visit Dermatology Lily Piedra MD 200 [facility], [place] [address] 09/03/2022 Office Visit Cardiology Del Díaz Jr., DO 132 [facility] [place] [address] 09/19/2022 Office Visit Podiatry Kylie Burroughs DPM [address] [place] [address] [place] [address] 09/19/2022 Office Visit Pharmacy [facility] Erica [address] [place] [address] 02/03/2023 Office Visit Family Medicine James Maria, 132 [facility] [place] [address] Scheduled Procedures Name Priority Associated Diagnoses Date/Ti [...] Documents on File Type Date Recorded Patient Filer Helper Expl anation Advanced Directive service a hi [...] Agents on File Name Relationship Healthcare Agent Yunvalarie jj Communication Farhana Sebastian Spouse Health Care Agent Care Teams Ice Cream Man Relationship Specialty Start Date End Date James Maria, 132 [facility] [place] [address] PCP - General Family Medicine 06/07/18 documented as of this encounter
--- OUTSIDE RECORDS SUMMARY | 2023-07-31 20:10 | External Medical Summary | Summary of Care ---
Author Name Unknown Organization [facility] [address] Care Team Providers Care Skidway Worker Name Role Phone James Maria DO Primary Care Provider Encounter Details Date Type Department Care Team Description 07/04/2022 Scan Encounter Family Practice [facility] [address] [place] [address] James Maria DO [address] [place] [address] <No scans attached> Allergies Active Allergy Reactions Severity Noted Date Comments Lisinopril Edema face/lips/tongue High 04/05/2018 documented as of this encounter (statuses as of 07/10/2022) Medications Medication Sig Dispensed Refills Start Date [...] Information Patient not taking. Reported on 06/23/2022 Silver sulfADIAZINE 1 % External Cream (Silvadene) Apply topically to affected area daily. Apply to to the left foot ulcer once daily. Cover with dry dressing. Perform once daily. 50 g 1 04/17/2021 Active Additional Information Patient taking differently: Topical DAILY PRN, Wound Care, Apply to to the left foot ulcer once daily. Cover with dry dressing. Perform once daily., Reported on 06/23/2022 Fluorouracil 5 % External [...] blood sugars four times daily 2 Each 12/27/2021 Active FreeStyle Rose Marie 2 [place] Device Test blood sugars four times daily 1 Each 0 12/27/2021 Active Lantus SoloStar 100 UNIT/ML Subcutaneous Solution Pen-injector (Insulin Glargine)Indications :Type 2 diabetes mellitus with hemoglobin A1c goal of less than 8.0% (HCC) Inject under the skin 15 Units before bedtime. 15 mL 3 01/06/2022 Active Pen [place] 32G X 4 MMIndications:Type 2 diabetes mellitus with hemoglobin A1c goal of less than 8.0% ([facility]) Use as directed . Use to [...] as of this encounter (statuses as of 07/10/2022) Active Problems Problem Noted Date Heart failure [...] as of this encounter (statuses as of 07/10/2022) Resolved Problems Problem Noted Date Resolved Date [...] with worsening symptoms. Will plan nurse or [facility] provider telemedicine recheck visit one [...] as of this encounter (statuses as of 07/10/2022) Immunizations Name Administration Dates Next Due COVID-19 [...] = 0.6 oz pure alcohol) As of 2.17.2007, the last noted alcohol intake was 1 [...] 08/13/2022 Office Visit Dermatology Lily Piedra MD [address] [place] [id number] 09/03/2022 Office Visit Cardiology Del Díaz Jr., 132 [facility] [place] [address] 09/19/2022 Office Visit [facility] [address] 09/19/20[facility] [address] [place] [address] 02/03/2023 Office Visit Family Medicine James Maria, 132 [facility] [place] [address] Scheduled Procedures Name Priority Associated Diagnoses Date/Ti [...] Vaccine (4 - Booster for Moderna series) 06/27/2022 02/25/2022, 03/24/2021, 02/22/2021 Influenza Vaccine (FLU shot) (#1) 2022 08/10/2021, 08/03/2020, 08/22/2019, Additional history exists DIABETES-HGBA1C EVERY 6 MONTHS 11/21/2022 05/21/2022, 02/27/2021, 03/13/2020, Additional history exists GFR - Renal Function 05/21/2023 05/21/2022, 11/08/2021, 02/27/2021, Additional history exists Alb / Creat Ratio 06/05/2023 06/05/2022, , 12/13/2018, Additional history exists Pneumococcal Vaccine: 65+ Years Completed 12/24/2015, 07/23/2011 Zoster Vaccines Completed 03/13/2020, 11/03, 08/03/2012 GARDASIL-HPV IMMUNIZATION SERIES Aged Out No longer [...] Documents on File Type Date Recorded Patient Blade Boner Expl anation Advanced Directive service a hi [...] Directive Advanced Directive Advanced Directive Advanced Directive Care Teams Skidway Worker Relationship Specialty Start Date End Date James Maria, 132 [facility] [place] [address] PCP - General Family Medicine 06/07/18 documented as of this encounter
--- OUTSIDE RECORDS SUMMARY | 2023-07-31 20:10 | External Medical Summary | Summary of Care ---
Author Name Unknown Organization [place] [address] Care Team Providers Care Wheat Cleaner Name Role Phone Rylan Mariar Sophy Primary Care Provider Reason for Visit * Reason Onset Date Comments Appointment 07/15/2022 Encounter Details Date Type Department Care Team Description 07/15/2022 Telephone [facility] [address] [facility] [place] [address] Services, Scheduling [address] [place] [address] Appointment Allergies Active Allergy Reactions Severity Noted Date Comments Lisinopril Edema face/lips/tongue High 04/05/2018 documented as of this encounter (statuses as of 07/15/2022) Medications Medication Sig Dispensed Refills Start Date [...] 11 12/27/2021 Active FreeStyle Rose Marie 2 [place] Device Test blood sugars four times daily 1 Each 0 12/27/2021 Active Lantus SoloStar 100 UNIT/ML Subcutaneous Solution Pen-injector (Insulin Glargine)Indications :Type 2 diabetes mellitus with hemoglobin A1c goal of less than 8.0% (HCC) Inject under the skin 15 Units before bedtime. 15 mL 3 01/06/2022 Active Pen [place] 32G X 4 MMIndications:Type 2 diabetes mellitus [...] as of this encounter (statuses as of 07/15/2022) Active Problems Problem Noted Date Heart failure [...] with fat layer exposed 01/09/2022 Atherosclerosis of [place] coronary arter y without angina pectoris [...] as of this encounter (statuses as of 07/15/2022) Resolved Problems Problem Noted Date Resolved Date [...] as of this encounter (statuses as of 07/15/2022) Immunizations Name Administration Dates Next Due COVID-19 [...] * Telephone Encounter - MICHEL Devries - 07/15/2022 1:01 PM EDT Per Request to schedule 3 week return... Called s/w pt's Farhana genao adv 08/05 at 1:30pm is a good date and time. documented in this encounter Plan of Treatment Upcoming Encounters Date Type Specialty Care Team Description 08/05/2022 Home Visit [facility] Elda Ponce, RN [address] [place] [address] 08/13/2022 Office Visit Dermatology Lily Piedra MD [address] [place] [address], [place] [address] 09/03/2022 Office Visit Cardiology Del Díaz Jr., DO 132 [place] [address] 09/19/2022 Office Visit Podiatry Kylie Burroughs DPM [address] [facility] [place] [phone] 09/19/2022 Office Visit Pharmacy [facility] Erica [address] [place] [address] 02/03/2023 Office Visit Family Medicine James Maria, 132 [place] [address] Scheduled Procedures Name Priority Associated Diagnoses Date/Ti [...] Documents on File Type Date Recorded Patient Administrative Support Assoc Expl anation Advanced Directive service a hi [...] Directive Advanced Directive Advanced Directive Care Teams Wheat Cleaner Relationship Specialty Start Date End Date James Maria, DO 132 [facility] [place] [address] PCP - General Family Medicine 06/07/18 documented as of this encounter
--- OUTSIDE RECORDS SUMMARY | 2023-07-31 20:10 | External Medical Summary | Summary of Care ---
Author Name Unknown Organization [place] [address] Care Team Providers Care Hearing Instrument Specialist Name Role Phone James Maria Primary Care Provider Encounter Details Date Type Department Care Team Description 06/27/2022 Home Visit [facility], [facility] [address] [facility] [place] [address] Elda Ponce, RN [address] [facility] [place] [address] Allergies Active Allergy Reactions Severity Noted Date Comments Lisinopril Edema face/lips/tongue High 04/05/2018 documented as of this encounter (statuses as of 07/22/2022) Medications Medication Sig Dispensed Refills Start Date [...] Perform once daily. 50 g 1 1 Active Additional Information Patient taking differently: Topical [...] 11 2 Active FreeStyle Rose Marie 2 [place] Device Test blood sugars four times daily 1 Each 0 2 Active Lantus SoloStar 100 UNIT/ML Subcutaneous Solution Pen-injector (Insulin Glargine)Indication s:Type 2 diabetes mellitus with hemoglobin A1c goal of less than 8.0% (HCC) Inject under the skin 15 Units before bedtime. 15 mL 3 2 Active Pen [place] 32G X 4 MMIndications:Type 2 diabetes mellitus with hemoglobin A1c goal of less than 8.0% ([facility]) Use as directed . Use [...] Calcium 40 MG Oral Tablet (Lipitor)Indication s:Dyslipidemia Take by mouth 1 Tablet in the morning. 90 Tablet 1 2 06/27/20 22 Discontinued documented as of this encounter (statuses as of 07/22/2022) Active Problems Problem Noted Date Heart failure [...] with fat layer exposed 01/09/2022 Atherosclerosis of [place] coronary arter y without angina pectoris [...] as of this encounter (statuses as of 07/22/2022) Resolved Problems Problem Noted Date Resolved Date [...] with worsening symptoms. Will plan nurse or [facility] provider telemedicine recheck visit one [...] MEDIA 07/15/2006 8 HTN, goal below 140/90 12/26/200411/28/201 0 Overview: Per HTN Taxonomy. 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 Allergic rhinitis 10/21/2018 Dysfunction of eustachian tube 1 12/22/2017 documented as of this encounter (statuses as of 07/22/2022) Immunizations Name Administration Dates Next Due COVID-19 [...] Sign Reading Time Taken Comments Blood Pressure 96/74 06/27/2022 11:40 AM EDT Pulse 56 06/27/2022 11:40 AM EDT Temperature 36.3 C (97.4 F) 06/27/2022 11:40 AM E DT Respiratory Rate - - Oxygen Saturation 98% 06/27/2022 11:40 AM EDT Inhaled Oxygen Concentration - - Weight - - Height - - Body Mass Index - - documented in this encounter Progress Notes * Elda Ponce RN - 06/27/2022 8:26 AM EDT Images from the original note were not included. [facility] Gas Technician Monthly Visit Date: 06/27/2022 Time: 8:26 AM Name: Selvin Sebastian : 1945 Situation: return Background: Pafib, htn, CAD, moderate aortic stenosis, CHF, cellulitis, DM, dyslipidemia, neuropathy, DDD, BPH,b/l hearing loss [facility] Enrollment Date: 11/20/21 Last [facility] Provider Visit: 06/05/22 Utilization: 06/05/22 - cellulitis toe of L foot, culture, Keflex, Wound Clinic Dr. Catalan - [facility] Assessment: HH PT ordered for pt, [facility] unable to reach pt, contacts did not know where pt was located - wifechanging dressings for pt PT CURRENTLY HOMELESS: T/c to Farhana, reports she has lived in [place] for 5 years In beginning pt was living at their mother's home that they inherited in [place] Hoarded self and out of home in [place] went to live with daughter in [place] and Selvin went to live in [place] with sister [place] home has been condemned and is being sold Selvin no longer living with sister and occasionally stays at [place] property that is going to be sold in July, other times he stays with and daughter in their apt in [place] but they are not allowed to have more than 2 people in apt so he is technically homeless Lives out of his mini van much of time and sleeps in van nights he is unable to stay with and daughter in [place] Pt and have another home in [place] but they can not live there b/c the water and bung sewer are not hooked up and they do not have the money for hookups Farhana gave permission for me to contact [facility], Zaira Ballard [phone] to see about financial assistance in getting hookups paid for so that Selvin and Farhana can both [facility] and no longer pay rent Pt and both present for visit at pt's sister's home in [place] Had removed his Freestyle Rose Marie from his arm b/c it was not working Has another one - assisted him in putting on his arm MEDS: Requesting refill for Atorvastatin [id number]-rec completed Pt taking pills and insulin correctly WOUNDS: R anterior LE R Plantar Wound: Base L great toe L anterior LE Physical Exam: BP 96/74 | Pulse 56 | Temp 36.3 C (97.4 F) | SpO2 98% Pain 0 Physical Exam HENT: Head: Normocephalic. Cardiovascular: Comments: Irregularly irregular systolic murmur noted Pulmonary: Effort: Pulmonary effort is normal. Breath sounds: Normal breath sounds. Abdominal: General: Bowel sounds are normal. Palpations: Abdomen is soft. Musculoskeletal: Comments: RLE: well healing wound present to [...] Skin: General: Skin is warm and dry. Neurological: General: No focal deficit present. Mental Status: He is alert. Psychiatric: Mood and Affect: Mood normal. Problems/Symptoms: Review of Systems Constitutional: Negative. HENT: Positive for hearing loss (very [place] - communicate with white board). Eyes: Negative. Respiratory: Negative. Cardiovascular: Positive for leg swelling. Negative for chest pain and palpitations. Gastrointestinal: Negative. Endocrine: Negative. Genitourinary: Negative. Musculoskeletal: Positive for arthralgias and gait problem. Skin: Positive for wound. Allergic/Immunologic: Negative. Hematological: Bruises/bleeds easily. Psychiatric/Behavioral: Negative. All other systems reviewed and are negative. Medication Reconciliation: (See medication list) Does patient take medications as ordered: Yes Patient Well Being: [facility]-10 Completed this Visit: No. Routine visit and No falls since last visit Advanced Care Planning: No documentation, deferred d/t other issues. Reinforcement/Education: Educated on home safety: Create a fall proof home o Clear floors of clutter, loose wires, throw rugs, and cords. o Make sure halls, stairways, and entrances are well lit. o Install a nightlight in your bedroom, hallway and bathroom. o Install grab bars or handrails in the bathroom and on stairs. o Use a non-skid tub/shower mat. o Avoid climbing on a chair; instead use a step stool with a high handrail. o Keep sidewalks and steps in good repair o Keep steps and sidewalks free of snow and ice. Using aids to support and prevent falls o If you have poor balance or have fallen in the past, consider additional support such as a cane or walker. o Use a cane with good support and that is the proper length for you. o Use a walker if a cane doesnt provide enough support. Avoid medications that increase the risk of falling by causing dizziness, change in sensation or slowed reflexes. o Certain medicines may cause falls blood pressure pills, heart medicines, water pills, or sleeping pills. o Be sure to understand each medicine that you are taking and any side effects that may occur. Improve your balance and flexibility with muscle strengthening exercises. Ask your health care provider for some exercises that will be right for you. Instructed to report any signs of infection: Redness, swelling, uncontrolled pain, green/yellow drainage, foul odor or fever. Instructed to eat a healthy, well-balanced diet. Be cognizant of foods high in sugar and carbohydrates. Increase physical activity, take all medications as directed, monitor blood glucose twice a day. Check blood glucose once before breakfast (fasting) and once two hours after a meal (post-prandial), document and take readings to next PCP visit. Report consistently elevated or low readings. Goal is <130mg/dl fasting and <180mg/dl post-prandial. Target A1C is <7%. Reinforced safety education and fall prevention. and Reinforced medication regimen. Timing., Dosing. and Purspose. Treatment/Plan: MT follows for DM [facility] manages wounds [facility] mgmt Ramona Trotter Referral made to [facility] Home Interventions Provided: Home Intervention: Wound Care Specialty Referral Placed Reinforced current Plan of Care, including self-management and medication regimen Updated Advanced Care Planning Note Updated Exacerbation Plan Patient's 'Red Flags': 1. Instructed to report any signs of infection: Redness, swelling, uncontrolled pain, green/yellow drainage, foul odor or fever. 2. Increased edema 3. Unable to get insulin from sister's home (lives in van, stores new insulin pens at sister's home) Patient's Goals of Care: 1. Hear better 2. Wound healing 3. Stay out of hospital Patient Needs to Remember: Call [facility] with red flags Referrals Needed: Other to [facility] - referral placed Follow Up: Is there cellular connectivity/connectivity in the home? Yes Does the patient have internet in the home? Yes Patient encouraged to call the intake phone number for all urgent but not emergent issues. Is the patient new to [facility] within the last 30 days? No, Assess appropriateness for upcoming telehealth visits. Cancel telehealth visits & schedule home visit with care store team member(s)as indicated. Provider is in agreement with Plan of Care: Yes Scheduled to follow up with patient 08/05/22. Elda Ponce RN 06/27/2022 8:26 AM documented in this encounter Plan of Treatment Upcoming Encounters Date Type Specialty Care Team Description 08/05/2022 [facility] Visit [facility] Elda Ponce RN [address] [place] [address] [place] [address] 08/13/2022 Office Visit Dermatology Lily Piedra MD [address] [place] [address] 09/03/2022 Office Visit Cardiology Del Díaz Jr., DO 132 [facility] [place] [address] 09/19/2022 Office Visit Podiatry Kylie Burroughs, [facility] [address] [facility] [place] [address] 09/19/2022 Office Visit Pharmacy [facility] Erica 132 [facility] [place] [address] 02/03/2023 Office Visit Family Medicine James Maria, [address] [facility] [place] [address] Scheduled Procedures Name Priority Associated Diagnoses Date/Ti [...] Documents on File Type Date Recorded Patient Rate Examiner Expl anation Advanced Directive service a hi [...] Directive Advanced Directive Advanced Directive Care Teams Hearing Instrument Specialist Relationship Specialty Start Date End Date James Maria DO 132 [facility] [place] [address] PCP - General Family Medicine 06/07/18 documented as of this encounter
--- OUTSIDE RECORDS SUMMARY | 2023-07-31 20:11 | External Medical Summary | Continuity of Care Document ---
Author Name Unknown Organization [id number] Address [address] [place] [phone] Care Team Providers Care Press Secretary Name Role Phone James Maria Primary Care Physician [phone] Encounter [facility] [id number] Date(s): 07/04/22 - 07/04/22 [id number] [address] [address] Encounter Diagnosis Puncture wound of foot, right(Discharge Diagnosis) - 07/04/22 Diabetic foot ulcer(Discharge Diagnosis) - 07/04/22 Discharge Disposition: Home or Self Care Attending [...] Start Date: 05/19/22 Status: Ordered Mental Status 07/04/22 Barriers to Learning one year None evide nt Mandatory Health Literacy Documentation Yes Health Literacy Communication Barriers N ever Primary Language Cuban Problem List Condition Effective Dates Status Health Status Inform ant Diabetic foot ulcer(Confirmed) Active Puncture wound of foot, right(Confirmed) Active Diagnosis Diagnosis Type Effective Dates Health Status Cl inical Service Informant Diabetic foot ulcer Discharge Diagnosis 07/04/22 Puncture wound of foot, right Discharge Diagnosis 07/04/22 Social History Social History Type Response Smoking Status Never smoked cigaret live Sex Male Care Team Personnel Name: DO Maria Trevor S Address: [address] [place] [address] [place] [address] [place]
--- OUTSIDE RECORDS SUMMARY | 2023-07-31 20:11 | External Medical Summary | Summary of Care ---
Author Name Unknown Organization [place] [address] Care Team Providers Care Rack Carrier Name Role Phone James Maria DO Primary Care Provider Encounter Details Date Type Department Care Team Description 06/24/2022 Scan Encounter Family Practice [facility] [address] [place] [address] James Maria DO [address] [place] [address] <No scans attached> Allergies Active Allergy Reactions Severity Noted Date Comments Lisinopril Edema face/lips/tongue High 04/05/2018 documented as of this encounter (statuses as of 07/01/2022) Medications Medication Sig Dispensed Refills Start Date [...] Each 12/27/2021 Active FreeStyle Rose Marie 2 [place] Device Test blood sugars four times daily 1 Each 0 12/27/2021 Active Lantus SoloStar 100 UNIT/ML Subcutaneous Solution Pen-injector (Insulin Glargine)Indications :Type 2 diabetes mellitus with hemoglobin A1c goal of less than 8.0% (HCC) Inject under the skin 15 Units before bedtime. 15 mL 3 01/06/2022 Active Pen [place] 32G X 4 MMIndications:Type 2 diabetes mellitus with hemoglobin A1c goal of less than 8.0% ([facility]) Use as directed . Use to [...] DAILY PRN, Other, edema, Reported on 06/23/2022 documented as of this encounter (statuses as of 07/01/2022) Active Problems Problem Noted Date Heart failure [...] with fat layer exposed 01/09/2022 Atherosclerosis of [place] coronary arter y without angina pectoris 01/09/2022 [...] as of this encounter (statuses as of 07/01/2022) Resolved Problems Problem Noted Date Resolved Date [...] as of this encounter (statuses as of 07/01/2022) Immunizations Name Administration Dates Next Due COVID-19 [...] Encounters Date Type Specialty Care Team Description 08/07/2022 Office Visit Dermatology Suha Duran MD [address] [place] [address] 09/03/2022 Office Visit Cardiology Del Díaz Jr., DO 132 [facility] [place] [address] 09/19/2022 Office Visit Podiatry Kylie Burroughs DPM [address] [place], [place] [address] [address] 09/19/2022 Office Visit Pharmacy [facility] Erica [address] [facility] [place] [address] 02/03/2023 Office Visit Family Medicine James Maria DO 132 [facility] [place] [address] Scheduled Procedures Name Priority Associated Diagnoses Date/Ti [...] Documents on File Type Date Recorded Patient Leather Grader Expl anation Advanced Directive service a hi [...] Directive Advanced Directive Advanced Directive Care Teams Rack Carrier Relationship Specialty Start Date End Date James Maria DO [address] [facility] [place] [address] PCP - General Family Medicine 06/07/18 documented as of this encounter
--- OUTSIDE RECORDS SUMMARY | 2023-07-31 20:11 | External Medical Summary | Summary of Care ---
Author Name Unknown Organization [place] [address] Care Team Providers Care Roentgenology Teacher Name Role Phone James Maria DO Primary Care Provider Encounter Details Date Type Department Care Team Description 06/25/2022 Scan Encounter Family Practice [facility] [address] [place] [address] James Maria DO [address] [place] [address] <No scans attached> Allergies Active Allergy Reactions Severity Noted Date Comments Lisinopril Edema face/lips/tongue High 04/05/2018 documented as of this encounter (statuses as of 06/26/2022) Medications Medication Sig Dispensed Refills Start Date [...] 07/05/2021 Active Insulin Syringe-Needle U-100 30G X 03/17" 0.3 MLIndications:Type 2 diabetes mellitus with polyneuropathy (HCC),Type 2 diabetes mellitus with hemoglobin A1c goal of less than 8.0% (HCC) Use up to 4 x a day for insulin dosing E11.9 3 Each 1 09/05/2021 Active Atorvastatin Calcium 40 MG Oral Tablet (Lipitor)Indications :Dyslipidemia Take by mouth 1 Tablet in the morning. 90 Tablet 1 12/25/2021 Active Additional Information Patient taking differently: 40 mg Oral DAILY, Indications: cholesterol, Reported on 06/17/2022 Eliquis 5 MG Oral TabletIndications:Ch ronic atrial [...] 11 12/27/2021 Active FreeStyle Rose Marie 2 [place] Device Test blood sugars four times daily 1 Each 0 12/27/2021 Active Lantus SoloStar 100 UNIT/ML Subcutaneous Solution Pen-injector (Insulin Glargine)Indications :Type 2 diabetes mellitus with hemoglobin A1c goal of less than 8.0% (HCC) Inject under the skin 15 Units before bedtime. 15 mL 3 01/06/2022 Active Pen [place] 32G X 4 MMIndications:Type 2 diabetes mellitus [...] as of this encounter (statuses as of 06/26/2022) Active Problems Problem Noted Date Heart failure [...] 05/22/2022 Hoarding behavior 03/20/2022 Paroxysmal atrial fibrillation 05/19/202 2 Last Assessment & Plan: Rate controlled [...] as of this encounter (statuses as of 06/26/2022) Resolved Problems Problem Noted Date Resolved Date [...] as of this encounter (statuses as of 06/26/2022) Immunizations Name Administration Dates Next Due COVID-19 [...] Encounters Date Type Specialty Care Team Description 06/27/2022 Home Visit [facility] Elda Ponce, RN [address] [place] [address] 08/07/2022 Office Visit Dermatology Suha Duran MD [address] [place] [address] 09/03/2022 Office Visit Cardiology Del Díaz Jr., DO [address] [place] [address] 09/19/2022 Office Visit Podiatry Kylie Burroughs DPM [address] [place], [place] [address] [address] 09/19/2022 Office Visit Pharmacy [facility] Erica [address] [place] [address] 02/03/2023 Office Visit Family Medicine James Maria DO [address] [place] [address] Scheduled Procedures Name Priority Associated Diagnoses Date/Ti [...] Documents on File Type Date Recorded Patient Street Engineer Expl anation Advanced Directive service a hi [...] Directive Advanced Directive Advanced Directive Care Teams Roentgenology Teacher Relationship Specialty Start Date End Date James Maria DO [facility] [place] [address] PCP - General Family Medicine 06/07/18 documented as of this encounter
--- OUTSIDE RECORDS SUMMARY | 2023-07-31 20:11 | External Medical Summary | Summary of Care ---
Author Name Unknown Organization [place] [address] Care Team Providers Care Roller Machine Operator Name Role Phone James Maria DO Primary Care Provider Reason for Visit * Reason Onset Date Comments eRx-Medication Refill Status Check 06/27/2022 Encounter Details Date Type Department Care Team Description 06/27/2022 [facility] 132 [facility] [place] [address] Wendy Cisneros CRNP [address] [facility] [place] [address] Dyslipidemia Allergies Active Allergy Reactions Severity Noted Date Comments Lisinopril Edema face/lips/tongue High 04/05/2018 documented as of this encounter (statuses as of 06/27/2022) Medications Medication Sig Dispensed Refills Start Date [...] 11 2 Active FreeStyle Rose Marie 2 [place] Device Test blood sugars four times daily 1 Each 0 2 Active Lantus SoloStar 100 UNIT/ML Subcutaneous Solution Pen-injector (Insulin Glargine)Indication s:Type 2 diabetes mellitus with hemoglobin A1c goal of less than 8.0% (HCC) Inject under the skin 15 Units before bedtime. 15 mL 3 2 Active Pen [place] 32G X 4 MMIndications:Type 2 diabetes mellitus [...] the morning. 90 Tablet 1 2 Active Atorvastatin Calcium 40 MG Oral Tablet (Lipitor)Indication s:Dyslipidemia Take by mouth 1 Tablet in the morning. 90 Tablet 1 2 06/27/20 22 Discontinued documented as of this encounter (statuses as of 06/27/2022) Active Problems Problem Noted Date Heart failure [...] with fat layer exposed 01/09/2022 Atherosclerosis of [place] coronary arter y without angina pectoris 01/09/2022 [...] as of this encounter (statuses as of 06/27/2022) Resolved Problems Problem Noted Date Resolved Date [...] as of this encounter (statuses as of 06/27/2022) Immunizations Name Administration Dates Next Due COVID-19 [...] Miscellaneous Notes * Telephone Encounter - Julia Melgar MD - 06/27/2022 5:47 PM EDT Signed Prescriptions: Disp Refills Atorvastatin Calcium 40 MG Oral Tablet (Li*90 Tab*1 Sig: Take by mouth 1 Tablet in the morning. Authorizing Provider: JULIA MELGAR * Telephone Encounter - BARTOLO Bentley - 06/27/2022 2:18 PM EDT Pending Prescriptions: Disp Refills Atorvastatin Calcium 40 MG Oral Tablet [Ph*90 Tab*1 Sig: TAKE ONE TABLET BY MOUTH EVERY MORNING * Telephone Encounter - JOHN Garcia - 06/27/2022 2:05 PM EDT Pharmacy checking status. Thanks, Chanell Magana [employer] Accommodation Support Worker Pharmacy Refill Call Center 06/27/2022,2:05 PM * Telephone Encounter - Kylie Avalos [facility] - 06/27/2022 2:02 PM EDT Pending Prescriptions: Disp Refills Atorvastatin Calcium 40 MG Oral Tablet (L*90 Tab*1 Sig: TAKE ONE TABLET BY MOUTH EVERY MORNING * Telephone Encounter - Kylie Avalos [facility] - 06/27/2022 2:01 PM EDT Did you pend patient's preferred pharmacy and medication before forwarding?yes Pharmacy: [facility]- [place] Pending Prescriptions: Disp Refills Atorvastatin Calcium 40 MG Oral Tablet (L*90 Tab*1 Sig: TAKE ONE TABLET BY MOUTH EVERY MORNING Last Visit: Visit [...] Labs: Lab Results Component Value Date/Time CREAT 1.0 05/21/2022 04:49 PM CREAT 1.32 11/08/2021 12:00 AM CREAT 1.1 06/01/2020 03:18 PM POTASSIUM 3.6 05/21/2022 04:49 PM POTASSIUM 4.3 11/08/2021 12:00 AM POTASSIUM 4.5 06/01/2020 03:18 PM TSH 2.020 11/08/2021 12:00 AM TSH 2.18 11/01/2008 10:02 AM LDLCALC 70 02/27/2021 11:24 AM LDLCALC 85 06/04/2016 01:48 PM LDLDIRECT 53 01/11/2018 11:20 AM ALT 15 05/21/2022 04:49 PM ALT 8 (L) 01/11/2018 11:20 AM HGBA1C 7.8 (H) 05/21/2022 04:49 PM HGBA1C 7.4 (H) 03/13/2020 09:26 AM documented in this encounter Plan of Treatment Upcoming Encounters Date Type Specialty Care Team Description 08/07/2022 Office [facility] [address] 09/03/2022 Office Visit Cardiology Del Díaz Jr., DO [address] [place] [address] 09/19/2022 Office Visit Podiatry Kylie Burroughs, [address] [place] [address] 09/19/2022 Office Visit Pharmacy [facility] Erica [address] [place] [address] 02/03/2023 Office Visit Family Medicine James Maria DO [address] [place] [address] Scheduled Procedures Name Priority Associated Diagnoses Date/Ti [...] hyperlipidemia documented in this encounter Advance Directives Documents on File Type Date Recorded Patient Shale Processing Technician Expl 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 Directive Advanced Directive Advanced Directive Care Teams Roller Machine Operator Relationship Specialty Start Date End Date James Maria DO 132 [facility] [place] [address] PCP - General Family Medicine 06/07/18 documented as of this encounter
--- OUTSIDE RECORDS SUMMARY | 2023-07-31 20:11 | External Medical Summary | Summary of Care ---
Author Name Unknown Organization [place] [address] Care Team Providers Care Field Agronomist Name Role Phone James Maria Primary Care Provider Reason for Visit * Reason Comments Medication Discussion Encounter Details Date Type Department Care Team Description 06/23/2022 Pharmacy Pharmacy Call Center [address] [place] [address] Wb, Telepharmacy [facility] Part D [address] [place] [address] Encounter for medication review* Allergies Active Allergy Reactions Severity Noted Date Comments Lisinopril Edema face/lips/tongue High 04/05/2018 documented as of this encounter (statuses as of 06/23/2022) Medications Medication Sig Dispensed Refills Start Date [...] 11 12/27/2021 Active FreeStyle Rose Marie 2 [place] Device Test blood sugars four times daily 1 Each 0 12/27/2021 Active Lantus SoloStar 100 UNIT/ML Subcutaneous Solution Pen-injector (Insulin Glargine)Indications :Type 2 diabetes mellitus with hemoglobin A1c goal of less than 8.0% (HCC) Inject under the skin 15 Units before bedtime. 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 PHARMACY MTM PROGRESS NOTE [facility] [address] [facility] [place] [address] Service Delivery Delivery Method: Phone Outcome: [facility] Completed Health Profile Current Conditions: Afib, Diabetes, Enlarged Prostate, Fluid Rentention, High Blood Pressure, High Cholesterol and Sexual Dysfunction Drug allergies & side effects: Review of patient's allergies indicates: Allergen Reactions Lisinopril Edema face/lips/tongue Med List Home Medications Provider Atorvastatin Calcium 40 MG Oral Tablet (Lipitor) BARTOLO Bentley Take by mouth 1 Tablet in the morning. Patient taking differently: Take by mouth 40 mg daily . Associated Diagnoses: Dyslipidemia Eliquis 5 MG Oral Tablet BARTOLO Bentley Take by mouth 1 Tablet in the morning AND 1 Tablet before bedtime. Patient taking differently: Take by mouth 5 mg 2 times a day . Associated Diagnoses: Chronic atrial fibrillation (HCC) Fluorouracil 5 % External Cream (Efudex) Chris Damon MD Apply to Scalp, ears, and temples twice a day for three weeks. Patient not taking: Reported on 05/21/2022 Associated Diagnoses: -- FreeStyle Rose Marie 2 [place] Device BARTOLO Bentley Test blood sugars four times daily Associated Diagnoses: -- FreeStyle Rose Marie 2 Sensor BARTOLO Bentley Test blood sugars four times daily Associated Diagnoses: -- Furosemide 40 MG Oral Tablet (Lasix) James Maria DO Take by mouth 1 Tablet in the morning. Patient taking differently: Take by mouth 40 mg daily as needed for Other (edema). Associated Diagnoses: Chronic atrial fibrillation (HCC) Glucose Blood (ONETOUCH VERIO) STRP Lamberto Razo MD Use up to 4 times a day E11.9 Patient not taking: Reported on 06/23/2022 Associated Diagnoses: -- Insulin Aspart 100 UNIT/ML Subcutaneous Solution History Per Patient Associated Diagnoses: -- Insulin Syringe-Needle U-100 30G X 5/16" 0.3 ML James Maria DO Use up to 4 x a day for insulin dosing E11.9 Associated Diagnoses: Type 2 diabetes mellitus with polyneuropathy (HCC), Type 2 diabetes mellitus with hemoglobin A1c goal of less than 8.0% (HCC) Lantus SoloStar 100 UNIT/ML Subcutaneous Solution Pen-injector (Insulin Glargine) James Maria DO Inject under the skin 15 Units before bedtime. Associated Diagnoses: Type 2 diabetes mellitus with hemoglobin A1c goal of less than 8.0% (HCC) metFORMIN HCl ER 500 MG Oral Tablet Extended Release 24 Hour (Glucophage XR) BARTOLO Bentley Take by mouth 2 Tablets in the morning. Associated Diagnoses: Type 2 diabetes mellitus with diabetic neuropathy, with long-term current use of insulin (HCC) Metoprolol Tartrate 25 MG Oral Tablet (Lopressor) BARTOLO Bentley Take by mouth 1 Tablet in the morning AND 1 Tablet before bedtime. Associated Diagnoses: Chronic atrial fibrillation (HCC) NovoLOG FlexPen 100 UNIT/ML Subcutaneous Solution Pen-injector (insulin aspart) James Maria DO Inject under the skin 5 Units three times a day with meals . Associated Diagnoses: -- ONETOUCH DELICA LANCETS 33G MISC Vania Cabrera DO USE ONE TO CHECK GLUCOSE 4 TIMES DAILY Patient not taking: Reported on 06/23/2022 Associated Diagnoses: -- Notes: Dx: E11.9 ONETOUCH ULTRA BLUE STRP Vania Cabrera DO USE TO CHECK GLUCOSE 4 TIMES DAILY Patient not taking: Reported on 06/23/2022 Associated Diagnoses: -- Pen [place] 32G X 4 MM James Maria, DO Use as directed . Use to inject insulin up to 4 times daily. Associated Diagnoses: Type 2 diabetes mellitus with hemoglobin A1c goal of less than 8.0% ([facility]) Sildenafil Citrate (VIAGRA) 50 MG Tablet Lamberto Razo MD Take 1 Tab by mouth as needed for Erectile Dysfunction. Associated Diagnoses: Impotence of organic origin Silver sulfADIAZINE 1 % External Cream (Silvadene) Kylie Burroughs DPM Apply topically to affected area daily. Apply to to the left foot ulcer once daily. Cover with dry dressing. Perform once daily. Patient taking differently: Apply topically to affected area daily as needed for Wound Care. Apply to to the left foot ulcer once daily. Cover with dry dressing. Perform once daily. 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 06/07/15 ran out of medication not taking DANET Corley 08/07/15 reviewed DM meds today DANTE Corley TIPs None Action Plan 1. What type of item is this? Non-medication related Describe the item for the patient takeaway: Your blood pressure Describe what the patient should do (for the patient takeaway): It is also important to monitoryour blood pressure regularly. Make sure to record your readings in a log and take them with you toyour appointments. Providing these readings to your healthcare providers can help them better control your blood pressure. 2. What type of item is this? Non-medication related Describe the item for the patient takeaway: Your blood sugar Describe what the patient should do (for the patient takeaway): It is also important to monitoryour blood sugar regularly. Make sure to record your readings in a log and take them with you to your appointments. Providing these readings to your healthcare providers can help them better control your blood sugar. 3. What type of item is this? Non-medication related Describe the item for the patient takeaway: Your feet at home Describe what the patient should do (for the patient takeaway): When you have diabetes, it could put you at an increased risk for foot infections. Checking your feet at home is a great way to prevent foot infections. Check your feet daily for cuts, scrapes, blisters, sores and signs of infection. Signs of infection could include redness, swelling or skin feeling warm to touch. If you cannot see the bottom of your feet, use a mirror or ask someone for help. 4. What type of item is this? Non-medication related Describe the item for the patient takeaway: Your high or low blood sugar Describe what the patient should do (for the patient takeaway): When your blood sugar is too high or too low your body could experience symptoms. Signs include: dizziness, shakiness, feeling hungry, feeling thirsty, sweatiness, nervousness, irritability, weakness, sleepiness, blurred vision, increased urination, lack of coordination. If you notice any of these signs, it is a great time to check your blood sugar. Takeaway Service Information ? Date CMR was completed: 06/23/2022 ? Who was the recipient of the CMR service: Family Member (First Name: Farhana, Last Name: Jza) ? Was the patient in a skilled nursing care (LTC) facility when the CMR was completed? No ? Pharmacist's availability for questions: Thursday-Thursday 8:00am-4:30pm Takeaway Information ? Will the Patient Takeaway be sent to the Patient or someone else? Patient ? Language Template for the Patient Takeaway: Bahraini ? Additional notes for the Patient Takeaway (optional): I attest that I have reviewed and updated the patient's conditions, allergies, and medications to the best of my ability. Additional Call Notes 30 CMR Pt denied any issues with meds, is up to date on labs and appears adherent to meds Educated the importance of home bp and bg monitoring and what to do when low Educated the importance of checking feet at home regularly JOHN Gilbert Student Clinical Pharmacist Telepharmacy 06/23/2022, 2:20 PM * JOHN Gilbert Student - 06/23/2022 2:20 PM EDT CMR completed by [employer] student. documented in this encounter Plan of Treatment Upcoming Encounters Date Type Specialty Care Team Description 06/27/2022 Home Visit [facility] Elda Ponce, RN [address] [facility] [place] [address] 08/07/2022 Office Visit Dermatology Suha Duran MD [address] [place] [address] 09/03/2022 Office Visit Cardiology Del Díaz Jr., DO [address] [facility] [place] [address] 09/19/2022 Office Visit Podiatry Kylie Burroughs DPM [address] [place] [address] [place] [id number] 09/19/2022 Office Visit Pharmacy [facility] Erica [address] [facility] [place] [address] 02/03/2023 Office Visit Family Medicine James Maria DO [address] [facility] [place] [address] Scheduled Procedures Name Priority Associated Diagnoses Date/Ti [...] as of this encounter Visit Diagnoses Diagnosis Encounter for medication review- Primary Encounter for long-term (current) use of other medications documented in this encounter Advance Directives Documents on File Type Date Recorded Patient Trade Sales Assistant Expl anation Advanced Directive service a hi [...] Directive Advanced Directive Advanced Directive Care Teams Field Agronomist Relationship Specialty Start Date End Date James Maria, [address] [facility] [place] [id number] PCP - General Family Medicine 06/07/18 documented as of this encounter
--- OUTSIDE RECORDS SUMMARY | 2023-07-31 20:11 | External Medical Summary | Summary of Care ---
Author Name Unknown Organization [place] [address] Care Team Providers Care Crop Production Advisor Name Role Phone James Maria DO Primary Care Provider Reason for Visit * Reason Onset Date Comments [facility]: Maintenance 07/02/2022 c are coordination Encounter Details Date Type Department Care Team Description 07/02/2022 Scheduled Telephone [facility], [facility] 132 [facility] [place] [address] Elda Ponce, RN 132 [facility] [place] [address] Allergies Active Allergy Reactions Severity Noted Date Comments Lisinopril Edema face/lips/tongue High 04/05/2018 documented as of this encounter (statuses as of 07/02/2022) Medications Medication Sig Dispensed Refills Start Date [...] 11 12/27/2021 Active FreeStyle Rose Marie 2 [place] Device Test blood sugars four times daily 1 Each 0 12/27/2021 Active Lantus SoloStar 100 UNIT/ML Subcutaneous Solution Pen-injector (Insulin Glargine)Indications :Type 2 diabetes mellitus with hemoglobin A1c goal of less than 8.0% (HCC) Inject under the skin 15 Units before bedtime. 15 mL 3 01/06/2022 Active Pen [place] 32G X 4 MMIndications:Type 2 diabetes mellitus [...] as of this encounter (statuses as of 07/02/2022) Active Problems Problem Noted Date Heart failure [...] with fat layer exposed 01/09/2022 Atherosclerosis of [place] coronary arter y without angina pectoris 01/09/2022 [...] as of this encounter (statuses as of 07/02/2022) Resolved Problems Problem Noted Date Resolved Date [...] as of this encounter (statuses as of 07/02/2022) Immunizations Name Administration Dates Next Due COVID-19 [...] encounter Miscellaneous Notes * Telephone Encounter - Elda Ponce RN - 07/02/2022 10:08 AM EDT T/c to [facility] Spoke with [facility] saw him x1 at sister's address in [place] Was not able to get in touch with him for several weeks after that Was d/c'd from [facility] d/t [email or web address] does not go to [place] and pt may end up living in [place] in near future New referral will need to be made by [facility] T/c to [facility] left for [facility] along with my cell number No call back - f/u call to [facility] left for nursing staff asking to call me on my provided # rec'd call back from Ange - she was unaware that he was homeless and that was unable to visit him and no longer sees pt Informed that pt's dressings are not always changed on time d/t pt being homeless T/c to Farhana Delcid reports that pt was at Wound Clinic yesterday Toe is healed Wound care qod She is performing wound care for him every 2-3 days Has needed supplies Has apt with Dr. Catalan, [facility] on 07/04/22 to f/u for wound care management - was seen by Dr. Catalan in hospital per Farhana and [facility] wanted him to f/u Visit to Farhana at her apt in [place] Provided [employer] Application, encouraged to complete AGUSTIN T/c to Zaira Ballard with [employer] [facility] - informed Farhana has application, provided Farhana'snumber to Zaira with Farhana's permission documented in this encounter Plan of Treatment Upcoming Encounters Date Type Specialty Care Team Description 08/07/2022 Office Visit Dermatology Suha Duran MD [address] [place] [address] 09/03/2022 Office Visit Cardiology Del Díaz Jr., DO 132 [facility] [place] [address] 09/19/2022 Office Visit Podiatry Kylie Burroughs DPM [address] [facility] [place] [address] 09/19/2022 Office Visit Pharmacy [facility] Erica 132 [facility] [place] [address] 02/03/2023 Office Visit Family Medicine James Maria, 132 [facility] [place] [address] Scheduled Procedures Name Priority Associated Diagnoses Date/Ti [...] Documents on File Type Date Recorded Patient Kiln Car Repairer Expl anation Advanced Directive service a hi [...] Directive Advanced Directive Advanced Directive Care Teams Crop Production Advisor Relationship Specialty Start Date End Date James Maria DO [address] [place] [address] PCP - General Family Medicine 06/07/18 documented as of this encounter
--- OUTSIDE RECORDS SUMMARY | 2023-07-31 20:12 | External Medical Summary | Summary of Care ---
Author Name Unknown Organization [place] [address] Care Team Providers Care Apprentice Architect Name Role Phone James Maria Primary Care Provider Reason for Visit * Reason Comments Medication Discussion Encounter Details Date Type Department Care Team Description 06/23/2022 Pharmacy Pharmacy Call Center [address] [facility] [place] [address] W[place], Telepharmacy [facility] Part D [address] [place] [address] Encounter for medication review* Allergies Active Allergy [...] 11 12/27/2021 Active FreeStyle Rose Marie 2 [place] Device Test blood sugars four times daily 1 Each 0 12/27/2021 Active Lantus SoloStar 100 UNIT/ML Subcutaneous Solution Pen-injector (Insulin Glargine)Indications :Type 2 diabetes mellitus with hemoglobin A1c goal of less than 8.0% (HCC) Inject under the skin 15 Units before bedtime. 15 mL 3 01/06/2022 Active Pen [place] 32G X 4 MMIndications:Type 2 diabetes mellitus [...] with fat layer exposed 01/09/2022 Atherosclerosis of [place] coronary arter y without angina pectoris [...] this encounter Progress Notes * Josephine Simeon, [facility] - 06/23/2022 3:20 PM EDT Images from the original note were not included. PHARMACY MTM PROGRESS NOTE [facility]ARMACY [address] [facility] [address] Service Delivery Delivery Method: Phone Outcome: [facility] Completed Health Profile Current Conditions: Afib, Diabetes, [...] Associated Diagnoses: -- FreeStyle Rose Marie 2 [place] Device BARTOLO Bentley Test blood sugars four [...] Reported on 06/23/2022 Associated Diagnoses: -- Pen [place] 32G X 4 MM James Maria, DO Use as directed . Use to inject insulin up to 4 times daily. Associated Diagnoses: Type 2 diabetes mellitus with hemoglobin A1c goal of less than 8.0% ([facility]) Sildenafil Citrate (VIAGRA) 50 MG Tablet Lamberto [...] 06/07/15 ran out of medication not taking DANTE Corley 08/07/15 reviewed DM meds today DANTE [...] Family Member (First Name: Farhana, Last Name: Jaz) ? Was the patient in a care home care (LTC) facility when the CMR was completed? No ? Pharmacist's availability for questions: Thursday-Thursday 8:00am-4:30pm Takeaway Information ? Will the Patient Takeaway be sent to the Patient or someone else? Patient ? Language Template for the Patient Takeaway: Turkmen ? Additional notes for the Patient Takeaway [...] [facility] Elda Ponce, RN 132 [facility] [place] [address] 08/07/2022 Office Visit Dermatology Suha Duran MD [address] [place] [address] 09/03/2022 Office Visit Cardiology Del Díaz Jr., DO 132 [facility] [place] [address] 09/19/2022 Office Visit Podiatry Kylie Burroughs DPM [address] [place] [address] [place] [address] 09/19/2022 Office Visit Pharmacy [facility] Erica 132 [facility] [place] [address] 02/03/2023 Office Visit Family Medicine James Maria DO [address] [facility] [place] [address] Scheduled Procedures Name Priority Associated Diagnoses Date/Ti [...] Documents on File Type Date Recorded Patient Instrument Maker Expl anation Advanced Directive service a hi [...] Directive Advanced Directive Advanced Directive Care Teams Apprentice Architect Relationship Specialty Start Date End Date James Maria, 132 [facility] [place] [id number] PCP - General Family Medicine 06/07/18 documented as of this encounter
--- OUTSIDE RECORDS SUMMARY | 2023-07-31 20:12 | External Medical Summary | Summary of Care ---
Author Name Unknown Organization [place] [address] Care Team Providers Care Job Trainer Name Role Phone James Maria DO Primary Care Provider Encounter Details Date Type Department Care Team Description 06/18/[address] [facility] [address] [place] [address] James Maria DO [address] [place] [address] <No scans attached> Allergies Active Allergy Reactions [...] day E11.9 300 Strip 3 08/24/2017 Active Silver sulfADIAZINE 1 % External Cream (Silvadene) Apply topically to affected area daily. Apply to to the left foot ulcer once daily. Cover with dry dressing. Perform once daily. 50 g 1 04/17/2021 Active Fluorouracil 5 % External Cream (Efudex) Apply to Scalp, ears, and temples twice a day for three weeks. 40 g 1 07/05/2021 Active Additional Information Patient not taking. Reported on 05/21/2022 Insulin Syringe-Needle U-100 30G X 5/16" 0.3 [...] before bedtime. 180 Tablet 3 12/25/2021 Active metFORMIN HCl ER 500 MG Oral [...] 11 12/27/2021 Active FreeStyle Rose Marie 2 [place] Device Test blood sugars four times daily 1 Each 0 12/27/2021 Active Lantus SoloStar 100 UNIT/ML Subcutaneous Solution Pen-injector (Insulin Glargine)Indications :Type 2 diabetes mellitus with hemoglobin A1c goal of less than 8.0% (HCC) Inject under the skin 15 Units before bedtime. 15 mL 3 01/06/2022 Active Additional Information Patient taking differently: 20 Units Subcutaneous QHS, Reported on 03/18/2022 Pen [place] 32G X 4 MMIndications:Type 2 diabetes mellitus with hemoglobin A1c goal of less than 8.0% ([facility]) Use as directed . Use [...] the morning. 90 Tablet 3 06/05/2022 Active documented as of this encounter (statuses [...] with fat layer exposed 01/09/2022 Atherosclerosis of [place] coronary arter y without angina pectoris 01/09/2022 [...] Encounters Date Type Specialty Care Team Description 06/23/2022 Pharmacy Pharmacy [place], Telepharmacy [facility] Part [address] [facility] [place] [address] 06/27/2022 [facility] Visit [facility] Elda Ponce, RN 132 [facility] [place] [address] 08/07/2022 Office Visit Dermatology Suha Duran MD [address] [place] [address] 09/03/2022 Office Visit Cardiology Del Díaz Jr., DO 132 [facility] [place] [address] 09/19/2022 Office Visit Podiatry Kylie Burroughs DPM [address] [place], [place] [address] [id number] 09/19/2022 Office Visit Pharmacy [facility] Erica 132 [facility] [place] [address] 02/03/2023 Office Visit Family Medicine James Maria, [address] [facility] [place] [address] Scheduled Procedures Name Priority Associated Diagnoses Date/Ti [...] Documents on File Type Date Recorded Patient Nba Player Expl anation Advanced Directive service a hi [...] Directive Advanced Directive Advanced Directive Care Teams Job Trainer Relationship Specialty Start Date End Date James Maria, [address] [place] [address] [place] [address] PCP - General Family Medicine 06/07/18 documented as of this encounter
--- OUTSIDE RECORDS SUMMARY | 2023-07-31 20:12 | External Medical Summary | Summary of Care ---
Author Name Unknown Organization [facility] [address] Care Team Providers Care Educational Programming Director Name Role Phone James Maria Primary Care Provider Reason for Visit * Reason Comments Medication Discussion Encounter Details Date Type Department Care Team Description 06/23/2022 Pharmacy Pharmacy Call Center [phone] [place] [address] Wb, Telepharmacy [facility] Part D [address] [place] [address] Encounter for medication review* Allergies Active Allergy [...] 11 12/27/2021 Active FreeStyle Rose Marie 2 [place] Device Test blood sugars four times daily 1 Each 0 12/27/2021 Active Lantus SoloStar 100 UNIT/ML Subcutaneous Solution Pen-injector (Insulin Glargine)Indications :Type 2 diabetes mellitus with hemoglobin A1c goal of less than 8.0% (HCC) Inject under the skin 15 Units before bedtime. 15 mL 3 01/06/2022 Active Pen [place] 32G X 4 MMIndications:Type 2 diabetes mellitus [...] with fat layer exposed 01/09/2022 Atherosclerosis of [place] coronary arter y without angina [...] this encounter Progress Notes * Josephine Simeon, [facility] - 06/23/2022 3:20 PM EDT Images from the original note were not included. PHARMACY MTM PROGRESS NOTE [facility] [address] [facility] [address] Service Delivery Delivery Method: Phone Outcome: [facility] Completed Health Profile Current Conditions: Afib, Diabetes, [...] Associated Diagnoses: -- FreeStyle Rose Marie 2 [place] Device BARTOLO Bentley Test blood sugars four [...] Reported on 06/23/2022 Associated Diagnoses: -- Pen [place] 32G X 4 MM James Maria, DO Use as directed . Use to inject insulin up to 4 times daily. Associated Diagnoses: Type 2 diabetes mellitus with hemoglobin A1c goal of less than 8.0% ([facility]) Sildenafil Citrate (VIAGRA) 50 MG [...] Jaz) ? Was the patient in a nursing home care (LTC) facility when the CMR was completed? No ? Pharmacist's availability for questions: Thursday-Thursday 8:00am-4:30pm Takeaway Information ? Will the Patient Takeaway be sent to the Patient or someone else? Patient ? Language Template for the Patient Takeaway: [place]an ? Additional notes for the Patient Takeaway [...] [facility] Elda Ponce, RN [address] [facility] [place] [address] 08/07/2022 Office Visit Dermatology Suha Duran MD [address] [place] [address] 09/03/2022 Office Visit Cardiology Del Díaz Jr., DO 132 [facility] [place] [address] 09/19/2022 Office Visit Podiatry Kylie Burroughs DPM [address] [place] [address] [place] [address] 09/19/2022 Office Visit Pharmacy [facility] Erica [address] [facility] [place] [address] 02/03/2023 Office Visit Family Medicine James Maria DO 132 [facility] [place] [address] Scheduled Procedures Name Priority Associated Diagnoses Date/Ti [...] Documents on File Type Date Recorded Patient Pad Tufter Expl anation Advanced Directive service a hi [...] Directive Advanced Directive Advanced Directive Care Teams Educational Programming Director Relationship Specialty Start Date End Date James Maria, [address] [facility] [place] [id number] PCP - General Family Medicine 06/07/18 documented as of this encounter
--- OUTSIDE RECORDS SUMMARY | 2023-07-31 20:12 | External Medical Summary | Summary of Care ---
Author Name Unknown Organization [place] [address] Care Team Providers Care Catalog Specialist Name Role Phone James Maria Primary Care Provider Reason for Visit * Reason Comments Dosage Adjustment In Person (Anticoag Cl inic) Diabetes Follow-Up Encounter Details Date Type Department Care Team Description 06/20/2022 Office Visit Pharmacy, [facility] 132 [facility] [place] [address] [facility] 132 [facility] [place] [address] Type 2 diabetes mellitus with hemoglobin A1c goal of less than 8.0% ([facility])* Allergies Active Allergy Reactions Severity Noted Date Comments Lisinopril Edema face/lips/tongue High 04/05/2018 documented as of this encounter (statuses as of 06/20/2022) Medications Medication Sig Dispensed Refills Start Date [...] on 05/21/2022 Insulin Syringe-Needle U-100 30G X 03/17" 0.3 [...] 11 12/27/2021 Active FreeStyle Rose Marie 2 [place] Device Test blood sugars four times daily 1 Each 0 12/27/2021 Active Lantus SoloStar 100 UNIT/ML Subcutaneous Solution Pen-injector (Insulin Glargine)Indications :Type 2 diabetes mellitus with hemoglobin A1c goal of less than 8.0% (HCC) Inject under the skin 15 Units before bedtime. 15 mL 3 01/06/2022 Active Additional Information Patient taking differently: 20 Units Subcutaneous QHS, Reported on 03/18/2022 Pen [place] 32G X 4 MMIndications:Type 2 diabetes mellitus with hemoglobin A1c goal of less than 8.0% ([facility]) Use as directed . Use to [...] MG Oral Tablet (Lasix)Indications:C hronic atrial fibrillation ([facility]) Take by mouth 1 Tablet in the morning. 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 - 06/20/2022 1:59 PM EDT Medication Therapy [facility] - Diabetes Management Progress Note Selvin Sebastian, identified by name and date of , is a 76 year old male being seen for diabetes [...] Hyperglycemia symptoms present: none Recent Labs Units 05/21/22 1649 02/27/21 1124 HEMOGLOBIN A1C - [facility] % 7.8* 13.2* Recent Labs Units 05/21/22 1649 11/08/21 0000 02/27/21 1124 ESTIMATED GLOMERULAR FILTRATION RATE - [facility] mL/min 81 -- 72.4 EGFR-OUTSIDE LAB ML/MIN -- 52.0 -- CREATININE - [facility] mg/dL 1.0 -- 1.0 CREATININE-OUTSIDE LAB MG/DL -- 1.32 -- HYPERTENSION: Patient on ACEi/ARB: no, renal function BP Readings from Last 3 Encounters: 06/05/22 108/54 06/04/22 118/57 05/27/22 118/70 Blood pressure at goal: yes HYPERLIPIDEMIA: Patient is taking moderate or high intensity statin: yes HEALTH MAINTENANCE REVIEW: Health Maintenance Due Topic Date Due Yearly B-12 11/16/2020 Depression Screening, Annual for Pts 12 and Over 11/21/2020 DTaP,Tdap,and Td Vaccines (2 - Td or Tdap) 10/21/2021 DIABETES-FOOT EXAM 02/28/2022 DIABETES-EYE EXAM 03/04/2022 ASSESSMENT & PLAN: No diagnosis found. BG Readings Blood sugars controlled. A1c is well controlled and so is his CGM download. Medications Reviewed current regimen, patient is adherent to regimen. Discussed short acting insulin and when to take it. Diet, Exercise, Lifestyle No significant lifestyle changes since last visit. [...] UP: Return to clinic in 12 weeks 09/19/2022 Samina Blunt RPh Clinical Pharmacist - [facility] Medication Therapy [facility] 06/20/2022, 1:59 PM documented in this encounter Plan of Treatment Upcoming Encounters Date Type Specialty Care Team Description 06/23/2022 Pharmacy Pharmacy Wb, Telepharmacy [facility] [address] [place] [address] 06/27/2022 [facility] Visit [facility] Elda Ponce RN [address] [place] [address] 08/07/2022 Office Visit Dermatology Suha Duran MD [address] [place] [address] 09/03/2022 Office Visit Cardiology Del Díaz Jr., DO [address] [place] [address] 09/19/2022 Office Visit Podiatry Kylie Burroughs DPM [address] [place] [address] 09/19/2022 Office Visit Pharmacy [facility] Erica [address] [place] [address] 02/03/2023 Office Visit Family Medicine James Maria, 132 [place] [address] Scheduled Procedures Name Priority Associated Diagnoses Date/Ti [...] Documents on File Type Date Recorded Patient Hospital Wellness Coordinator Expl anation Advanced Directive service a hi [...] Directive Advanced Directive Advanced Directive Care Teams Catalog Specialist Relationship Specialty Start Date End Date James Maria DO [address] [place] [address] PCP - General Family Medicine 06/07/18 documented as of this encounter
--- OUTSIDE RECORDS SUMMARY | 2023-07-31 20:12 | External Medical Summary | Summary of Care ---
Author Name Unknown Organization [place] [address] Care Team Providers Care Packager Head Name Role Phone James Maria Primary Care Provider Reason for Visit * Reason Comments Diabetic Foot Care Encounter Details Date Type Department Care Team Description 06/18/2022 Office Visit Podiatry [facility] [address] [facility] [place] [address] Kylie Burroughs, [facility] [address] [facility] [phone] Onychomycosis*; DM type 2 with diabetic peripheral neuropathy (HCC); Edema of both lower legs Allergies Active Allergy Reactions Severity Noted Date Comments Lisinopril Edema face/lips/tongue High 04/05/2018 documented as of this encounter (statuses as of 06/18/2022) Medications Medication Sig Dispensed Refills Start Date [...] 11 12/27/2021 Active FreeStyle Rose Marie 2 [place] Device Test blood sugars four times daily 1 Each 0 12/27/2021 Active Lantus SoloStar 100 UNIT/ML Subcutaneous Solution Pen-injector (Insulin Glargine)Indications :Type 2 diabetes mellitus with hemoglobin A1c goal of less than 8.0% (HCC) Inject under the skin 15 Units before bedtime. 15 mL 3 01/06/2022 Active Additional Information Patient taking differently: 20 Units Subcutaneous QHS, Reported on 03/18/2022 Pen [place] 32G X 4 MMIndications:Type 2 diabetes mellitus [...] as of this encounter (statuses as of 06/18/2022) Active Problems Problem Noted Date Heart failure [...] fat layer exposed 01/09/2022 Atherosclerosis of [place] coronary arter y without angina pectoris 01/09/2022 [...] as of this encounter (statuses as of 06/18/2022) Resolved Problems Problem Noted Date Resolved Date [...] as of this encounter (statuses as of 06/18/2022) Immunizations Name Administration Dates Next Due COVID-19 [...] Progress Notes * Kylie Burroughs, DPM - 06/18/2022 12:51 PM EDT Podiatry Established Note [facility] Name: Selvin Sebastian : 1945 Date: 06/18/2022 REASON FOR VISIT: diabetic foot care SUBJECTIVE: This patient is a 76 year old male who presents today accompanied by his . He is very hard of hearing and she helps communicate. 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 reports recent hospitalization for toe and foot wounds. He is following with [facility] and has a follow up on Thursday. Past Medical History: Diagnosis Date Allergic rhinitis [...] discolored. No interdigital changes. Chronic appearing discoloration to feet/legs. Open wound interdigital space on left first toe as well as medial aspect of first metatarsal head and right plantar foot. Dressing not removed to right plantar foot. Class Findings for Routine Foot Care Class [...] T4 T5 T6 T7 T8 T9 2. DM type 2 with diabetic peripheral neuropathy (HCC) 3. Edema of both lower legs PLAN: Procedure: After mild cleansing and drying of feet, toenails 1-5 bilaterally were manually and mechanically debrided without incident. A nail splitter was used to remove all incurvating edges. A nail welter wasused to trim nail to appropriate length. An electrical bur was used in a side to side motion to reduce nail thickness, hypertrophic growth, and to smooth all edges. Patient tolerated well. They noted improvement following procedure. Wounds are being treated by outside facility. Follow up: 3 months documented in this encounter Nursing Notes * Celeste Huber LPN - 06/18/2022 12:48 PM EDT Pt presents with his for diabetic nail care, no pain in feet. She states he sees wound care for bilateral foot wounds, R foot is almost healed, a culture was taken of the L foot. BSG 272 this morning. documented in this encounter Plan of Treatment Upcoming Encounters Date Type Specialty Care Team Description 06/19/2022 Pharmacy Pharmacy Wb, Telepharmacy [facility] [address] [place] [address] 06/20/2022 Office Visit [facility]acy [facility] Erica [address] [facility] [place] [address] 06/27/2022 [facility] Rica Taylor, RN 132 [facility] [place] [address] 08/07/2022 Office Visit Dermatology Suha Duran MD [address] [place] [address] 09/03/2022 Office Visit Cardiology Del Díaz Jr., DO 132 [facility] [place] [address] 09/19/2022 Office Visit Podiatry Kylie Burroughs, [facility] [address] [facility] [place] [address] 02/03/2023 Office Visit Family Medicine James Maria, 132 [facility] [place] [address] Scheduled Procedures Name Priority Associated Diagnoses Date/Ti [...] Diagnoses Diagnosis Onychomycosis- Primary Dermatophytosis of nail DM type 2 with diabetic peripheral neuropathy (HCC) Type II or unspecified type diabetes mellitus with neurological manifestations, not stated as uncontrolled Edema of both lower legs documented in this encounter Advance Directives Documents on File Type Date Recorded 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
--- OUTSIDE RECORDS SUMMARY | 2023-07-31 20:12 | External Medical Summary | Summary of Care ---
Author Name Unknown Organization [place] [address] Care Team Providers Care Liquid Sugar Fortifier Name Role Phone James Maria DO Primary Care Provider Encounter Details Date Type Department Care Team Description 06/05/2022 Scan Encounter Family Practice [facility] [address] [place] [address] James Maria DO [address] [place] [address] <No scans attached> Allergies Active Allergy Reactions Severity Noted Date Comments Lisinopril Edema face/lips/tongue High 04/05/2018 documented as of this encounter (statuses as of 06/10/2022) Medications Medication Sig Dispensed Refills Start Date [...] the morning. 90 Tablet 1 12/25/2021 Active Eliquis 5 MG Oral TabletIndications:Ch ronic [...] 12/27/2021 Active FreeStyle Rose Marie 2 [place] Device Test blood sugars four times daily 1 Each 0 12/27/2021 Active Lantus SoloStar 100 UNIT/ML Subcutaneous Solution Pen-injector (Insulin Glargine)Indications :Type 2 diabetes mellitus with hemoglobin A1c goal of less than 8.0% (HCC) Inject under the skin 15 Units before bedtime. 15 mL 3 01/06/2022 Active Additional Information Patient taking differently: 20 Units Subcutaneous QHS, Reported on 03/18/2022 Pen [place] 32G X 4 MMIndications:Type 2 diabetes mellitus [...] EVERY MORNING 100 Capsule 2 04/11/2022 Active Cephalexin 500 MG Oral Capsule Take by mouth 1 Capsule in the morning AND 1 Capsule at noon AND 1 Capsule in the evening AND 1 Capsule before bedtime. Do all this for 7 days. 28 Capsule 0 06/04/2022 2 Active Insulin Aspart 100 UNIT/ML Subcutaneous Solution 5 Units . Pt takes 5 to 6 units before meals 0 05/16/2022 Active Furosemide 40 MG Oral Tablet (Lasix)Indications:C hronic atrial fibrillation (HCC) Take by mouth 1 Tablet in the morning. 90 Tablet 3 06/05/2022 Active documented as of this encounter (statuses as of 06/10/2022) Active Problems Problem Noted Date Heart failure [...] with fat layer exposed 01/09/2022 Atherosclerosis of [place] coronary arter y without angina pectoris 01/09/2022 [...] as of this encounter (statuses as of 06/10/2022) Resolved Problems Problem Noted Date Resolved Date [...] as of this encounter (statuses as of 06/10/2022) Immunizations Name Administration Dates Next Due COVID-19 [...] Encounters Date Type Specialty Care Team Description 06/18/2022 Office Visit Podiatry Kylie Burroughs DPM [address] [place] [address] 06/18/2022 Office Visit Pharmacy [facility] Erica 132 [facility] [place] [address] 06/27/2022 [facility] Visit [facility] Rica Taylor RN [address] [facility] [place] [address] 08/07/2022 Office Visit Dermatology Suha Duran MD [address] [place] [address] 09/03/2022 Office Visit Cardiology Del Díaz Jr., [address] [place] [address] 02/03/2023 Office Visit [facility] [place] [address] Scheduled Procedures Name Priority Associated Diagnoses Date/Ti [...] 05/21/2023 05/21/2022, 11/08/2021, 02/27/2021, Additional history exists DIABETES-URINE ALBUMIN/CREATININE EVERY 12 MONTHS 06/05/2023 06/05/2022, 03/13/2020, 12/13/2018, Additional history exists Pneumococcal Vaccine: 65+ [...] Documents on File Type Date Recorded 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
--- OUTSIDE RECORDS SUMMARY | 2023-07-31 20:12 | External Medical Summary | Summary of Care ---
Author Name Unknown Organization [place] [address] Care Team Providers Care Well Service Floor Worker Name Role Phone James Maria DO Primary Care Provider Reason for Visit * Reason Comments Return Visit Pt here for 6 mo ret urn. Pt had wound clinic appt this am due to bilat feet wounds. Encounter Details Date Type Department Care Team Description 06/05/2022 Office Visit Family Practice [facility] [address] [facility] [place] [id number] James Maria DO [address] [facility] [place] [address] Type 2 diabetes mellitus with hemoglobin A1c goal of less than 8.0% ([facility])*; Type 2 diabetes mellitus with polyneuropathy (HCC); Diabetic ulcer of toe of right foot associated with type 2 diabetes mellitus, with fat layer exposed (HCC); Heart failure, unspecified HF chronicity, unspecified heart failure type (HCC); Paroxysmal atrial fibrillation (HCC); Chronic atrial fibrillation (HCC); DM type 2 nursing care encounter (HCC); HTN, goal below 130/80; Atherosclerosis of [place] coronary artery of [place] heart without angina pectoris; Encounter for long-term (current) use of medications Allergies Active Allergy Reactions Severity Noted Date Comments Lisinopril Edema face/lips/tongue High 04/05/2018 documented as of this encounter (statuses as of 06/16/2022) Medications Medication Sig Dispensed Refills Start Date [...] day E11.9 300 Strip 3 7 Active Silver sulfADIAZINE 1 % External Cream (Silvadene) Apply topically to affected area daily. Apply to to the left foot ulcer once daily. Cover with dry dressing. Perform once daily. 50 g 1 1 Active Fluorouracil 5 % External Cream (Efudex) Apply to Scalp, ears, and temples twice a day for three weeks. 40 g 1 1 Active Additional Information Patient not taking. Reported on 05/21/2022 Insulin Syringe-Needle U-100 30G X 03/17" 0.3 MLIndications:Type 2 diabetes mellitus with polyneuropathy (HCC),Type 2 diabetes mellitus with hemoglobin A1c goal of less than 8.0% (HCC) Use up to 4 x a day for insulin dosing E11.9 3 Each 1 1 Active Atorvastatin Calcium 40 MG Oral Tablet (Lipitor)Indication s:Dyslipidemia Take by mouth 1 Tablet in the morning. 90 Tablet 1 2 Active Eliquis 5 MG Oral TabletIndications:C hronic atrial fibrillation (HCC) Take by mouth 1 Tablet in the morning AND 1 Tablet before bedtime. 180 Tablet 3 2 Active metFORMIN HCl ER 500 MG Oral [...] 11 2 Active FreeStyle Rose Marie 2 [place] Device Test blood sugars four times daily 1 Each 0 2 Active Lantus SoloStar 100 UNIT/ML Subcutaneous Solution Pen-injector (Insulin Glargine)Indication s:Type 2 diabetes mellitus with hemoglobin A1c goal of less than 8.0% (HCC) Inject under the skin 15 Units before bedtime. 15 mL 3 2 Active Additional Information Patient taking differently: 20 Units Subcutaneous QHS, Reported on 03/18/2022 [place] 32G X 4 MMIndications:Type 2 diabetes mellitus [...] the morning. 90 Tablet 3 2 Active Blood Glucose Monitoring Suppl ([employer] ULTRA SYSTEM) W/DEVICE KIT Use as directed 4 times a day as needed for Hyperglycemia (high sugar) or Hypoglycemia (low sugar). Use up to four times a day as directed 1 Kit 0 6 06/05/20 22 Discontinue d(Medicatio n List Clean Up) Blood Glucose Monitoring Suppl (ONETOUCH VERIO) w/Device KITIndications:Type 2 diabetes mellitus with hemoglobin A1c goal of 7.0%-8.0% (HCC) Use as directed. Recommend check glucose levels at least 2 times daily-once in AM before breakfast and once 2 hours after evening meal. 1 Kit 0 8 06/05/20 22 Discontinue d(Medicatio n List Clean Up) Furosemide 40 MG Oral Tablet (Lasix)Indications: Chronic atrial fibrillation (HCC) Take by mouth 1 Tablet in the morning. 90 Tablet 3 2 06/05/20 22 Discontinue d(Refill) Cephalexin 500 MG Oral Capsule Take by mouth 1 Capsule in the morning AND 1 Capsule at noon AND 1 Capsule in the evening AND 1 Capsule before bedtime. Do all this for 7 days. 28 Capsule 0 2 06/11/20 22 documented as of this encounter (statuses as of 06/16/2022) Active Problems Problem Noted Date Heart failure [...] with fat layer exposed 01/09/2022 Atherosclerosis of [place] coronary arter y without angina pectoris 01/09/2022 [...] as of this encounter (statuses as of 06/16/2022) Resolved Problems Problem Noted Date Resolved Date [...] as of this encounter (statuses as of 06/16/2022) Immunizations Name Administration Dates Next Due COVID-19 [...] Sign Reading Time Taken Comments Blood Pressure 108/54 06/05/2022 2:17 PM EDT Pulse 51 06/05/2022 2:17 PM EDT Temperature 36.4 C (97.5 F) 06/05/2022 2:17 PM ED T Respiratory Rate 16 06/05/2022 2:17 PM EDT Oxygen Saturation 97% 06/05/2022 2:17 PM EDT Inhaled Oxygen Concentration - - Weight 80.8 kg (178 lb 3 oz) 06/05/2022 2:17 PM EDT Height - - Body Mass Index 28.77 05/23/2022 3:10 PM EDT documented in this encounter Patient Instructions * Patient Instructions* Celina Lau LPN - 06/05/2022 2:32 PM EDT Images from the original note were not included. Dear Selvin Sebastian, The care of your Diabetes is very important to us. A yearly diabetic eye exam is important to protect your vision. If youre getting an eye exam done outside of [facility] please tell your Eye Doctor to fax or mail us the results of your Diabetic Eye Exam at your next visit. Our Address and Fax Number are listed below to help. Thank you for helping us to improve your Diabetes Care Our Office Address and Fax Number: James Maria DO Family [address] [phone] Diabetic Retinopathy: Evaluating Your Eyes Diabetic retinopathy is a condition that happens when diabetes damages blood vessels in the rear ofthe eye. It can lead to vision loss. To help catch it early, have a complete dilated eye exam at least once a year. During the exam, the eye healthcare provider will review your medical history, examine your eyes, and check your vision. Women who are and have pre-existing type 1 or type 2 diabetes have an increased risk of retinopathy. Women with diabetes should have an eye exam before or in the first trimester. They should continue to be monitored every trimester and for 1 year after delivery, depending on the severity of the retinopathy. The retina is the light-sensitive part of the eye that allows you to see. High blood sugar can damage blood vessels of the retina and cause them to leak or bleed. This damage can lead to abnormal blood vessel growth. This condition is called diabetic retinopathy. You may not have symptoms early in the disease. Later, there may be floaters, blurred vision, or poor night vision. There may also be partial or complete vision loss. Early cases of diabetic retinopathy can be treated by carefully controlling blood sugar, blood pressure, and cholesterol. Surgery or laser treatments may help restore lost vision. Laser surgery can shrink abnormal blood vessels or close ones that are leaking. Medicines injected in the eye can help decrease swelling of the retina. Home care Take all medicines, including insulin or oral diabetic medicine, exactly as prescribed. Follow the diet advised by your healthcare provider. If you have high cholesterol, follow a low-fat, low-cholesterol diet. Monitor blood sugars as advised. Try to achieve your ideal weight. If you smoke, quit smoking. Tobacco use worsens the effect of diabetes on your blood vessels. If you have high blood pressure, consider buying an automatic blood pressure machine. These are available at most pharmacies. Use this to monitor your blood pressure. Report your blood pressure readings to your healthcare provider. Exercise regularly. Follow-up care Follow up with your healthcare provider, or as advised. You must have a complete eye exam at least once a year, more often if needed. Untreated diabetic retinopathy can lead to complete loss of vision. Occupational therapists can help you adapt to any vision loss you have, including learning techniques to safely administer insulin. When to seek medical advice Call your healthcare provider right away if any of these occur. Increasing blurriness or any sudden changes in your vision Sudden flashes of light inside your eye New floaters (small dots or strings that seem to be moving across your field of vision) Eye pain, redness, or discharge from your eyelid New dark spots appearing in your field of vision Halos around lights Dimness of vision Partial or complete loss of vision Women with diabetes should have a complete eye exam before becoming , or as soon as possible when they find out they are . Retinopathy sometimes worsens during . Your eye exam Your eye healthcare provider uses an eye chart and other tools to check your vision. Then he or sheexamines your eyes for signs of disease. You are given eye drops to widen (dilate) your pupils. Youmay have one or more of the following tests: Tonometry to measure fluid pressure inside the eye. Slit lamp exam to allow the healthcare provider to view the structures of your eye. Ultrasound to create an image of the eye using sound waves. Ultrasound may be used if blood is found in the clear gel that fills the eye (vitreous). Ocular coherence tomography (OCT) to create an image of the retina using light waves. This showsif there is fluid leaking into certain parts of the eye. It can also measure the thickness of the retina. Fluorescein angiography This test may be done to check the health of the inside lining of the eye (retina). It also checks the tiny blood vessels (capillaries) that carry blood to the retina. During the test: Photographs are taken of the retina. A dye is then injected into the bloodstream through the arm or hand. The dye travels to the capillaries in the eye. More photographs are taken of the retina. The dye causes the capillaries to stand out on the photographs. You may feel brief nausea during the procedure. For a few hours after the test, your skin, eyes, and urine may appear yellow. Talk with your healthcare provider for more information about this test. Date Last Reviewed: 04/02/201619998467-1713 [employer]. [address] [place] [address]. All rights reserved. This information is not intended as a substitute for professional medical care. Always follow your healthcare professional's instructions. documented in this encounter Progress Notes * James Maria DO - 06/05/2022 2:37 PM EDT Images from the original note were not included. 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 DM type 2 nursing care encounter ([facility]) - TELEMEDICINE DIABETIC EYE; Future HTN, goal below 130/80 - VITAMIN B12; Future - CBC WITH WBC DIFFERENTIAL; Future - COMPREHENSIVE METABOLIC PANEL; Future - HEMOGLOBIN A1C; Future - ALBUMIN / CREATININE RATIO, URINE; Future - LIPID PANEL WITH DIRECT LDL IF TG IS HIGH; Future Atherosclerosis of [place] coronary artery of [place] heart without angina pectoris Encounter for long-term (current) use of medications - VITAMIN B12; Future - CBC WITH WBC DIFFERENTIAL; Future - COMPREHENSIVE METABOLIC PANEL; Future - HEMOGLOBIN A1C; Future - ALBUMIN / CREATININE RATIO, URINE; Future - LIPID PANEL WITH DIRECT LDL IF TG IS HIGH; Future History of Present Illness Selvin Sebastian is a 76 year old male that presents for Return Visit (Pt here for 6 mo return. Pt had wound clinic appt this am due to bilat feet wounds.) Presents in f/u today Almost unable to communicate with him Due to his lack of hearing But writing is one way we communicate No new concerns today A1C back for review Physical Exam Vitals: 06/05/22 1417 Temp: 36.4 C (97.5 F) Pulse: 51 Resp: 16 SpO2: 97% BP: 108/54 Physical Exam Vitals and nursing note reviewed. Constitutional: Appearance: Normal appearance. HENT: Head: Normocephalic and atraumatic. Right Ear: Tympanic membrane, ear canal and external ear normal. There is no impacted cerumen. Left Ear: Tympanic membrane, ear canal and external ear normal. There is no impacted cerumen. Nose: Nose normal. Mouth/Throat: Mouth: Mucous membranes are moist. Pharynx: Oropharynx is clear. Eyes: Extraocular Movements: Extraocular movements intact. Conjunctiva/sclera: Conjunctivae normal. Pupils: Pupils are equal, round, and reactive to light. Cardiovascular: Rate and Rhythm: Normal rate and regular rhythm. Heart sounds: Normal heart sounds. Pulmonary: Effort: Pulmonary effort is normal. Breath sounds: Normal breath sounds. Abdominal: General: Abdomen is flat. Palpations: Abdomen is soft. Musculoskeletal: General: Normal range of motion. Cervical back: Normal range of motion and neck supple. Lymphadenopathy: Cervical: No cervical adenopathy. Skin: General: Skin is warm and dry. Neurological: General: No focal deficit present. Mental Status: He is alert and oriented to person, place, and time. Wrap-Up Follow-up: Return in about 8 months (around 02/03/2023). | Check-out note: Please schedule for telemedicine eye exam Time: Total time today was 45 minutes excluding any time spent in the performance of separately billed services. * Celina Lau LPN - 06/05/2022 2:32 PM EDT The importance of having a yearly diabetic eye exam has been discussed with patient. Order and/or Referral placed along with patient instructions. Provider made aware. Celina Lau LPN documented in this encounter Miscellaneous Notes * Addendum Note - MICHEL Forrester - 06/16/2022 6:22 PM EDT Addended by: ODETTE LLANES on: 06/16/2022 06:22 PM Modules accepted: Orders documented in this encounter Plan of Treatment Upcoming Encounters Date Type Specialty Care Team Description 06/18/2022 Office Visit Podiatry Kylie Burroughs DPM [address] [facility] [place] [id number] 06/18/2022 Office Visit Pharmacy [facility] Erica [address] [place] [address] 06/27/2022 Home Visit [facility] Rica Taylor, RN [address] [facility] [place] [address] 08/07/2022 Office Visit Dermatology Suha Duran MD [address] [facility] [place] [address] 09/03/2022 Office Visit Cardiology Del Díaz Jr., DO [address] [place] [id number] 02/03/2023 Office Visit Family Medicine Yariel Mariavoolaf Beckett, DO [address] [place] [address] Scheduled Orders Name Type Priority Associated Diagnoses Orde r Schedule VITAMIN B12 Lab Routine Type 2 diabetes mellitus with hemoglobin A1c goal of less than 8.0% (HCC) HTN, goal below 130/80 Encounter for long-term (current) use of medications Expected: 06/05/2022 (Approximate), Expires: 06/05/2023 CBC WITH WBC DIFFERENTIAL Lab Routine Type 2 diabetes mellitus with hemoglobin A1c goal of less than 8.0% (HCC) HTN, goal below 130/80 Encounter for long-term (current) use of medications Expected: 06/05/2022 (Approximate), Expires: 06/05/2023 COMPREHENSIVE METABOLIC PANEL Lab Routine Type 2 diabetes mellitus with hemoglobin A1c goal of less than 8.0% (HCC) HTN, goal below 130/80 Encounter for long-term (current) use of medications Expected: 06/05/2022 (Approximate), Expires: 06/05/2023 HEMOGLOBIN A1C Lab Routine Type 2 diabetes mellitus with hemoglobin A1c goal of less than 8.0% (HCC) HTN, goal below 130/80 Encounter for long-term (current) use of medications Expected: 06/05/2022 (Approximate), Expires: 06/05/2023 LIPID PANEL WITH DIRECT LDL IF TG IS HIGH Lab Routine Type 2 diabetes mellitus with hemoglobin A1c goal of less than 8.0% (HCC) HTN, goal below 130/80 Encounter for long-term (current) use of medications Expected: 06/05/2022, Expires: 06/05/2023 Scheduled Procedures Name Priority Associated Diagnoses Date/Ti [...] Procedure Name Priority Date/Time Associated Diagnosis Comments ALBUMIN / CREATININE RATIO, URINE Routine 06/05/2022 2:59 PM EDT Type 2 diabetes mellitus with hemoglobin A1c goal of less than 8.0% (HCC) HTN, goal below 130/80 Encounter for long-term (current) use of medications documented in this encounter Results * (ABNORMAL) ALBUMIN / CREATININE RATIO, URINE (06/05/2022 2:59 PM EDT) Albumin, Random Urine 4.05 mg/dL [facility] [place]inine, Random Urine 29 mg/dL [facility] [place] Albumin / Creatinine Ratio, Urine 140(H) <30 mg/g Creat [facility] [place] Spec[place] Urine - Urine specimen obtai brian by clean catch procedure (specimen) Narrative [facility] [place] 06/05/2022 10:56 PM EDT Normal: <30 mg/g creatinine High: 30-300 mg/g creatinine Very High: >300 mg/g creatinine Nephrotic: >2200 mg/g creatinine [facility] [place] [address] [place] [address] documented in this encounter Visit Diagnoses Diagnosis Type 2 diabetes mellitus with hemoglobin A1c goal of less than 8.0% (HCC)- Primary Type 2 diabetes mellitus with polyneuropathy (HCC) Type II or unspecified type diabetes mellitus with neurological manifestations, not stated as uncontrolled Diabetic ulcer of toe of right foot associated with type 2 diabetes mellitus, with fat layer exposed (HCC) Heart failure, unspecified HF chronicity, unspecified heart failure type (HCC) Paroxysmal atrial fibrillation (HCC) Atrial fibrillation Chronic atrial fibrillation (HCC) Atrial fibrillation DM type 2 nursing care encounter (HCC) Type II or unspecified type diabetes mellitus without mention of complication, not stated as uncontrolled HTN, goal below 130/80 Unspecified essential hypertension Atherosclerosis of [place] coronary artery of [place] heart without angina pectoris Encounter for long-term (current) use of medications Encounter for long-term (current) use of other medications documented in this encounter Advance Directives Documents on File Type Date Recorded Patient Hotel Registration Clerk Expl anation Advanced Directive service a hi [...] Directive Advanced Directive Advanced Directive Care Teams Well Service Floor Worker Relationship Specialty Start Date End Date James Maria, [address] [facility] [place] [address] PCP - General Family Medicine 06/07/18 documented as of this encounter
--- OUTSIDE RECORDS SUMMARY | 2023-07-31 20:12 | External Medical Summary | Continuity of Care Document ---
Author Name Unknown Organization [id number] Address [address] [place] [id number] Care Team Providers Care Action Finisher Name Role Phone James Maria Primary Care Physician [phone] Encounter [facility] [phone] Date(s): 06/18/22 - 06/18/22 [id number] [address] [address] Encounter Diagnosis Puncture wound of foot, right(Discharge Diagnosis) - 06/18/22 Diabetic foot ulcer(Discharge Diagnosis) - 06/18/22 Discharge Disposition: Home or Self Care Attending [...] Start Date: 05/19/22 Status: Ordered Mental Status 06/18/22 Barriers to Learning one year None evide nt Mandatory Health Literacy Documentation Yes Health Literacy Communication Barriers N ever Primary Language Bulgarian Problem List Condition Effective Dates Status Health Status Inform ant Diabetic foot ulcer(Confirmed) Active Puncture wound of foot, right(Confirmed) Active Diagnosis Diagnosis Type Effective Dates Health Status Cl inical Service Informant Puncture wound of foot, right Discharge Diagnosis 06/18/22 Diabetic foot ulcer Discharge Diagnosis 06/18/22 Social History Social History Type Response Smoking Status Never smoked cigaret live Sex Male Care Team Personnel Name: DO Maria Trevor S Address: [address] [place] [address] [place] [address] [place]
--- OUTSIDE RECORDS SUMMARY | 2023-07-31 20:13 | External Medical Summary | Summary of Care ---
Author Name Unknown Organization [place] [address] Care Team Providers Care Forensic Document Examiner Name Role Phone James Maria Primary Care Provider Reason for Visit * Reason Onset Date Comments Information 06/04/2022 Encounter Details Date Type Department Care Team Description 06/04/2022 Telephone [facility] [place] [place] [address] [place] [address] Services, Scheduling [address] [place] [address] Information Allergies Active Allergy Reactions Severity Noted Date Comments Lisinopril Edema face/lips/tongue High 04/05/2018 documented as of this encounter (statuses as of 06/04/2022) Medications Medication Sig Dispensed Refills Start Date End Date Status Blood Glucose Monitoring Suppl (ONETOUCH ULTRA SYSTEM) W/DEVICE KIT Use as directed 4 times a day as needed for Hyperglycemia (high sugar) or Hypoglycemia (low sugar). Use up to four times a day as directed 1 Kit 0 01/29/2016 Active ONETOUCH ULTRA BLUE STRP USE TO CHECK [...] day E11.9 300 Strip 3 08/24/2017 Active Blood Glucose Monitoring Suppl ([employer]) w/Device KITIndications:Type 2 diabetes mellitus with hemoglobin A1c goal of 7.0%-8.0% ([facility]) Use as directed. Recommend check glucose levels at least 2 times daily-once in AM before breakfast and once 2 hours after evening meal. 1 Kit 0 05/12/2018 Active Silver sulfADIAZINE 1 % External Cream [...] less than 8.0% ([facility]) Use up to 4 x a day for insulin dosing E11.9 3 Each 1 09/05/2021 Active Atorvastatin Calcium 40 MG Oral Tablet (Lipitor)Indication s:Dyslipidemia Take by mouth 1 Tablet in the morning. 90 Tablet 1 12/25/2021 Active Eliquis 5 MG Oral TabletIndications:C hronic atrial fibrillation (HCC) Take by mouth 1 Tablet in the morning AND 1 Tablet before bedtime. 180 Tablet 3 12/25/2021 Active Furosemide 40 MG Oral Tablet (Lasix)Indications: Chronic atrial fibrillation (HCC) Take by mouth 1 Tablet in the morning. 90 Tablet 3 12/25/2021 Active metFORMIN HCl ER [...] times daily 2 Each 11 12/27/2021 Active Protection PlusStAgolo Rose Marie 2 [place] Device Test blood sugars four times daily 1 Each 0 12/27/2021 Active Lantus SoloStar 100 UNIT/ML Subcutaneous Solution Pen-injector (Insulin Glargine)Indication s:Type 2 diabetes mellitus with hemoglobin A1c goal of less than 8.0% (HCC) Inject under the skin 15 Units before bedtime. 15 mL 3 01/06/2022 Active Additional Information Patient taking differently: 20 Units Subcutaneous QHS, Reported on 03/18/2022 Pen [place] 32G X 4 MMIndications:Type 2 diabetes mellitus [...] EVERY MORNING 100 Capsule 2 04/11/2022 Active documented as of this encounter (statuses as of 06/04/2022) Active Problems Problem Noted Date Unsteady gait when walking 05/27/2022 Last Assessment & Plan: No actual falls, but has bumped into goetz while walking. Denies hitting his head. PT/OT eval and treat Puncture wound of right foot 05/26/2022 Overview: With associated cellulitis. Inpt treatment 05/16-05/18 Last Assessment & Plan: Finished abx. No surrounding erythema. Some erythema on quintana, but chronic. Continue to dress wound daily F/u schedule with Dr. Catalan (ortho) and Dr. Burroughs (podiatry) Overweight (BMI 25.0-29.9) 05/22/2022 Hoarding behavior 03/20/2022 Paroxysmal atrial fibrillation 2 Last Assessment & Plan: Rate controlled Continue metroprolol 25 mg BID, Eliquis 5 mg BID Moderate aortic stenosis 03/20/2022 Diabetic ulcer of toe of rig ht foot associated with type 2 diabetes mellitus, with fat layer exposed 01/09/2022 Atherosclerosis of [place] coronary arter y without angina pectoris 01/09/2022 [...] Last Assessment & Plan: BP at goal Dyslipidemia 10/15/2009 Overview: Per Lipid Taxonomy. Type 2 diabetes mellitus with hemoglobin A1c goal of less than 8.0% 08/16/2009 Overview: Modified per Diabetes protocol #14. ICD-10 update of inactive term Last Assessment & Plan: Uncontrolled--being followed by MTM --lantus 15 units daily --novolog 5 units TID wit meals --metformin 1000mg BID Mixed conductive and sensori neural hearing loss of right ear with restricted hearing of left ear Overview: right documented as of this encounter (statuses as of 06/04/2022) Resolved Problems Problem Noted Date Resolved Date [...] as of this encounter (statuses as of 06/04/2022) Immunizations Name Administration Dates Next Due COVID-19 [...] Miscellaneous Notes * Telephone Encounter - MICHEL Estrada - 06/04/2022 10:28 AM EDT Working in basket request to fax referral to HH for SN and PT form [facility]. [facility] onreferral so contacted them and faxed info to Sheila's attn and am waiting her return cb Sheila wang and asked for needs and I read through latest encounter for just PT and then refaxed her snapshot and demo and order and reached out to JACQUE Logan for more info to share and cb Sheila at [phone] when I get it To move ahead Sheila wang and said they cannot meet his needs now. Per Gisele Taylor, try [facility] and[facility]or [facility]? documented in this encounter Plan of Treatment Upcoming Encounters Date Type Specialty Care Team Description 06/05/2022 Office Visit Family Medicine James Maria DO [address] [place] [address] 06/10/2022 Home Visit Family Medicine Sara Recinos, Community Health Electronic Publisher [address] [place] [address] 06/18/2022 Office [facility] [address] 06/18/2022 Office Visit Pharmacy [facility] Erica [address] [facility] [place] [address] 06/27/2022 [facility] Rica Taylor, RN 132 [facility] [place] [address] 08/07/2022 Office Visit Dermatology Suha Duran MD [address] [place] [address] 09/03/2022 Office Visit Cardiology Del Díaz Jr., DO 132 [facility] [place] [address] Scheduled Procedures Name Priority Associated Diagnoses Date/Ti me COLONOSCOPY FLEXIBLE PROXIMA L DIAGNOSTIC Recall Encounter for screening colonoscopy Health Maintenance Due Date Last Done Comments Yearly B-12 11/16/2020 11/16/2019, 01/11/2018 Depression Screening, Annual for Pts 12 and Over 11/21/2020 11/21/2019 DIABETES-URINE ALBUMIN/CREATININE EVERY 12 MONTHS 03/13/2021 03/13/2020, 12/13/2018, 01/11/2018, Additional history exists DTaP,Tdap,and Td Vaccines (2 - Td or [...] 05/21/2023 05/21/2022, 11/08/2021, 02/27/2021, Additional history exists Pneumococcal Vaccine: 65+ Years [...] Documents on File Type Date Recorded Patient Toxicology Teacher Expl anation Advanced Directive service a hi [...] Directive Advanced Directive Advanced Directive Care Teams Forensic Document Examiner Relationship Specialty Start Date End Date James Maria DO [address] [place] [address] PCP - General Family Medicine 06/07/18 documented as of this encounter
--- OUTSIDE RECORDS SUMMARY | 2023-07-31 20:13 | External Medical Summary | Summary of Care ---
Author Name Unknown Organization [place] [address] Care Team Providers Care Behavioral Health Clinician Name Role Phone James Maria Primary Care Provider Reason for Visit * Reason Onset Date Comments Appointment 06/06/2022 Encounter Details Date Type Department Care Team Description 06/06/2022 Telephone [facility] [address] [facility] [place] [id number] Services, Scheduling [address] [place] [address] Appointment Allergies Active Allergy Reactions Severity Noted Date Comments Lisinopril Edema face/lips/tongue High 04/05/2018 documented as of this encounter (statuses as of 06/06/2022) Medications Medication Sig Dispensed Refills Start Date [...] 11 12/27/2021 Active FreeStyle Rose Marie 2 [place] Device Test blood sugars four times daily 1 Each 0 12/27/2021 Active Lantus SoloStar 100 UNIT/ML Subcutaneous Solution Pen-injector (Insulin Glargine)Indications :Type 2 diabetes mellitus with hemoglobin A1c goal of less than 8.0% (HCC) Inject under the skin 15 Units before bedtime. 15 mL 3 01/06/2022 Active Additional Information Patient taking differently: 20 Units Subcutaneous QHS, Reported on 03/18/2022 Pen [place] 32G X 4 MMIndications:Type 2 diabetes mellitus [...] as of this encounter (statuses as of 06/06/2022) Active Problems Problem Noted Date Heart failure [...] with fat layer exposed 01/09/2022 Atherosclerosis of [place] coronary arter y without angina pectoris 01/09/2022 [...] as of this encounter (statuses as of 06/06/2022) Resolved Problems Problem Noted Date Resolved Date [...] as of this encounter (statuses as of 06/06/2022) Immunizations Name Administration Dates Next Due COVID-19 [...] Miscellaneous Notes * Telephone Encounter - MICHEL Alexander - 06/06/2022 12:01 PM EDT In basket request: Spouse cancel 06/18 appointment not going to work needs it cancelled. Return call to schedule new appointment date and time. Left detailed message to call [facility] to seewhat day would work for patient. Provider schedule is open Jenny Logan. We can offer patient June 23 documented in this encounter Plan of Treatment Upcoming Encounters Date Type Specialty Care Team Description 06/18/2022 Office Visit Podiatry Kylie Burroughs DPM [address] [place], [place] [address] [address] 06/18/2022 Office Visit Pharmacy [facility] Erica [address] [place] [address] 06/27/2022 Home Visit [facility] Rica Taylor, RN 132 [facility] [place] [address] 08/07/2022 Office Visit Dermatology Suha Duran MD [address] [place] [address] 09/03/2022 Office Visit Cardiology Del Díaz Jr., DO [address] [place] [address] 02/03/2023 Office Visit Family Medicine James Maria, [address] [place] [address] Scheduled Procedures Name Priority Associated Diagnoses Date/Ti [...] Documents on File Type Date Recorded Patient Hose Finisher Expl anation Advanced Directive service a hi [...] Directive Advanced Directive Advanced Directive Care Teams Behavioral Health Clinician Relationship Specialty Start Date End Date James [facility] [place] [address] PCP - General Family Medicine 06/07/18 documented as of this encounter
--- OUTSIDE RECORDS SUMMARY | 2023-07-31 20:13 | External Medical Summary | Summary of Care ---
Author Name Unknown Organization [place] [address] Care Team Providers Care Air Conditioning Installer Supervisor Name Role Phone James Maria DO Primary Care Provider Reason for Visit * Reason Comments Return Visit Pt here for 6 mo ret urn. Pt had wound clinic appt this am due to bilat feet wounds. Encounter Details Date Type Department Care Team Description 06/05/2022 Office Visit Family Practice [facility] 132 [facility] [place] [id number] James [facility] DO [address] [facility] [address] Type 2 diabetes mellitus with hemoglobin A1c goal of less than 8.0% ([facility])*; Type 2 diabetes mellitus with polyneuropathy (HCC); Diabetic ulcer of toe of right foot associated with type 2 diabetes mellitus, with fat layer exposed (HCC); Heart failure, unspecified HF chronicity, unspecified heart failure type (HCC); Paroxysmal atrial fibrillation (HCC); Chronic atrial fibrillation (HCC); DM type 2 nursing care encounter (HCC); HTN, goal below 130/80; Atherosclerosis of [place] coronary artery of [place] heart without angina pectoris; Encounter for long-term (current) use of medications Allergies Active Allergy Reactions Severity Noted Date Comments Lisinopril Edema face/lips/tongue High 04/05/2018 documented as of this encounter (statuses as of 06/05/2022) Medications Medication Sig Dispensed Refills Start Date [...] 2 Each 11 2 Active FreeStyle Rose Marei 2 [place] Device Test blood sugars four times daily 1 Each 0 2 Active Lantus SoloStar 100 UNIT/ML Subcutaneous Solution Pen-injector (Insulin Glargine)Indication s:Type 2 diabetes mellitus with hemoglobin A1c goal of less than 8.0% (HCC) Inject under the skin 15 Units before bedtime. 15 mL 3 2 Active Additional Information Patient taking differently: 20 Units Subcutaneous QHS, Reported on 03/18/2022 Pen [place] 32G X 4 MMIndications:Type 2 diabetes mellitus [...] EVERY MORNING 100 Capsule 2 2 Active Cephalexin 500 MG Oral Capsule Take by mouth 1 Capsule in the morning AND 1 Capsule at noon AND 1 Capsule in the evening AND 1 Capsule before bedtime. Do all this for 7 days. 28 Capsule 0 2 06/11/20 22 Active Insulin Aspart 100 UNIT/ML Subcutaneous Solution 5 Units . Pt takes 5 to 6 units before meals 0 2 Active Furosemide 40 MG Oral Tablet (Lasix)Indications: Chronic atrial fibrillation (HCC) Take by mouth 1 Tablet in the morning. 90 Tablet 3 2 Active Blood Glucose Monitoring Suppl ([employer] ULTRA SYSTEM) W/DEVICE KIT Use as directed 4 times a day as needed for Hyperglycemia (high sugar) or Hypoglycemia (low sugar). Use up to four times a day as directed 1 Kit 0 6 06/05/20 22 Discontinu ed(Medicat ion List Clean Up) Blood Glucose Monitoring Suppl ([employer]) w/Device KITIndications:Type 2 diabetes mellitus with hemoglobin A1c goal of 7.0%-8.0% (HCC) Use as directed. Recommend check glucose levels at least 2 times daily-once in AM before breakfast and once 2 hours after evening meal. 1 Kit 0 8 06/05/20 Discontinu ed(Medicat ion List Clean Up) Furosemide 40 MG Oral Tablet (Lasix)Indications: Chronic atrial fibrillation (HCC) Take by mouth 1 Tablet in the morning. 90 Tablet 3 2 06/05/20 Discontinu ed(Refill) documented as of this encounter (statuses as of 06/05/2022) Active Problems Problem Noted Date Heart failure 06/05/2022 Unsteady gait when walking 05/27/2022 Last Assessment [...] with fat layer exposed 01/09/2022 Atherosclerosis of [place] coronary arter y without angina pectoris 01/09/2022 [...] as of this encounter (statuses as of 06/05/2022) Resolved Problems Problem Noted Date Resolved Date [...] as of this encounter (statuses as of 06/05/2022) Immunizations Name Administration Dates Next Due COVID-19 [...] getting an eye exam done outside of [facility] please tell your Eye Doctor to fax or mail us the results of your Diabetic Eye Exam at your next visit. Our Address and Fax Number are listed below to help. Thank you for helping us to improve your Diabetes Care Our Office Address and Fax Number: James Maria, Family [address] [address] Diabetic Retinopathy: Evaluating Your Eyes Diabetic retinopathy [...] information about this test. Date Last Reviewed: 04/02/201619993353-3033 [employer]. [address] [place] [address], [place] [address]. All rights reserved. This information is not [...] morning. DM type 2 nursing care encounter (HCC) - TELEMEDICINE DIABETIC EYE; Future HTN, goal below 130/80 - VITAMIN B12; Future - CBC WITH WBC DIFFERENTIAL; Future - COMPREHENSIVE METABOLIC PANEL; Future - HEMOGLOBIN A1C; Future - ALBUMIN / CREATININE RATIO, URINE; Future - LIPID PANEL WITH DIRECT LDL IF TG IS HIGH; Future Atherosclerosis of [place] coronary artery of [place] heart without angina pectoris Encounter for long-term [...] Celina Lau LPN documented in this encounter Plan of Treatment Upcoming Encounters Date Type Specialty Care Team Description 06/10/2022 Home Visit Family Medicine Sara Recinos, Community [facility] Flight Test Shop Mechanic [address] [place] [address] 06/18/2022 Office Visit [facility] [address] 06/18/2022 Office Visit Pharmacy [facility] Erica [address] [facility] [place] [address] 06/27/2022 [facility] Visit [facility] [place] Rica Taylor, RN [address] [facility] [place] [address] 08/07/2022 Office Visit Dermatology Suha Duran MD [address] [place] [address] 09/03/2022 Office Visit Cardiology Del Díaz Jr., DO [address] [facility] [place] [address] 02/03/2023 Office Visit Family Medicine James Maria, [address] [facility] [place] [address] Scheduled Orders Name Type Priority Associated Diagnoses [...] of medications Expected: 06/05/2022 (Approximate), Expires: 06/05/2023 ALBUMIN / CREATININE RATIO, URINE Lab Routine Type 2 diabetes mellitus with [...] below 130/80 Unspecified essential hypertension Atherosclerosis of [place] coronary artery of [place] heart without angina pectoris Encounter for long-term (current) use of medications Encounter for long-term (current) use of other medications documented in this encounter Advance Directives Documents on File Type Date Recorded Patient Hydraulic Barker Operator Expl 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 Directive Advanced Directive Advanced Directive Care Teams Air Conditioning Installer Supervisor Relationship Specialty Start Date End Date James Maria DO [address] [place] [address] PCP - General Family Medicine 06/07/18 documented as of this encounter
--- OUTSIDE RECORDS SUMMARY | 2023-07-31 20:13 | External Medical Summary | Summary of Care ---
Author Name Unknown Organization [place] [address] Care Team Providers Care Yarn Cleaner Name Role Phone James Maria Primary Care Provider Reason for Visit * Reason Onset Date Comments Information 06/04/2022 Encounter Details Date Type Department Care Team Description 06/04/2022 Telephone [facility] [employer] [place] [facility] [address] [place] [address] Services, Scheduling [address] [place] [address] Information Allergies Active Allergy Reactions Severity Noted [...] 3 08/24/2017 Active Blood Glucose Monitoring Suppl ([employer] w/Device KITIndications:Type 2 diabetes mellitus with hemoglobin A1c goal of 7.0%-8.0% ([facility]) Use as directed. Recommend check glucose levels [...] A1c goal of less than 8.0% ([facility]) Use up to 4 x a day [...] times daily 2 Each 11 12/27/2021 Active Fiber[employer] NetworksStSkyPower Rose Marie 2 [place] Device Test blood sugars four times daily 1 Each 0 12/27/2021 Active Lantus SoloStar 100 UNIT/ML Subcutaneous Solution Pen-injector (Insulin Glargine)Indication s:Type 2 diabetes mellitus with hemoglobin A1c goal of less than 8.0% (HCC) Inject under the skin 15 Units before bedtime. 15 mL 3 01/06/2022 Active Additional Information Patient taking differently: 20 Units Subcutaneous QHS, Reported on 03/18/2022 Pen [place] 32G X 4 MMIndications:Type 2 diabetes [...] of 06/05/2022) Active Problems Problem Noted Date Unsteady gait [...] with fat layer exposed 01/09/2022 Atherosclerosis of [place] coronary arter y without angina pectoris [...] to HH for SN and PT form [facility] Found [facility] listed onreferral so contacted them and faxed info to Sheila's attn and am waiting her return cb Sheila wang and asked for needs and I read through latest encounter for just PT and then refaxed her snapshot and demo and order and reached out to JACQUE oLgan for more info to share and cb Sheila at [phone] when I get it To move ahead Sheila wang and said they cannot meet his needs now. Per Gisele Taylor, try [facility] and[facility]or [facility]? Called [facility] 06/05 and spoke to Autumn who has availability next week and asked me to fax docs to her attn at [phone] so I did so at 830am documented in this encounter Plan of Treatment Upcoming Encounters Date Type Specialty Care Team Description 06/05/2022 Office Visit Family Medicine James Maria, 132 [facility] [place] [address] 06/10/2022 Home Visit Family Medicine Sara Recinos, [facility] Winemaker [address] [facility] [address] 06/18/2022 Office Visit Podiatry Kylie Burroughs, DPM [address] [facility] [place] [address] 06/18/2022 Office Visit Pharmacy [facility] Erica 132 [facility] [place] [address] 06/27/2022 [facility] Visit [facility] Rica Taylor, RN 132 [facility] [place] [address] 08/07/2022 Office Visit Dermatology Suha Duran MD [address] [place] [address] 09/03/2022 Office Visit Cardiology Del Díaz Jr., DO 132 [facility] [place] [address] Scheduled Procedures Name Priority Associated Diagnoses Date/Ti [...] Documents on File Type Date Recorded Patient Mexican Food Cook Expl anation Advanced Directive service a hi [...] Directive Advanced Directive Advanced Directive Care Teams Yarn Cleaner Relationship Specialty Start Date End Date James Maria DO [address] [place] [address] PCP - General Family Medicine 06/07/18 documented as of this encounter
--- OUTSIDE RECORDS SUMMARY | 2023-07-31 20:13 | External Medical Summary | Summary of Care ---
Author Name Unknown Organization [place] [address] Care Team Providers Care English Adjunct Faculty Name Role Phone James Maria DO Primary Care Provider Reason for Visit * Reason Comments Return Visit Pt here for 6 mo ret urn. Pt had wound clinic appt this am due to bilat feet wounds. Encounter Details Date Type Department Care Team Description 06/05/2022 Office Visit Family Practice [facility] 132 [facility] [place] [id number] James Maria DO [address] [facility] [place] [address] Type 2 diabetes mellitus with hemoglobin A1c goal of less than 8.0% ([facility])*; Type 2 diabetes mellitus with polyneuropathy (HCC); Diabetic ulcer of toe of right foot associated with type 2 diabetes mellitus, with fat layer exposed (HCC); Heart failure, unspecified HF chronicity, unspecified heart failure type (HCC); Paroxysmal atrial fibrillation (HCC); Chronic atrial fibrillation (HCC); DM type 2 nursing care encounter (HCC); HTN, goal below 130/80; Atherosclerosis of [place] coronary artery of [place] heart without angina pectoris; Encounter for long-term [...] 11 2 Active FreeStyle Rose Marie 2 Ashley Device Test blood sugars four times daily 1 Each 0 2 Active Lantus SoloStar 100 UNIT/ML Subcutaneous Solution Pen-injector (Insulin Glargine)Indication s:Type 2 diabetes mellitus with hemoglobin A1c goal of less than 8.0% (HCC) Inject under the skin 15 Units before bedtime. 15 mL 3 2 Active Additional Information Patient taking differently: 20 Units Subcutaneous QHS, Reported on 03/18/2022 Pen [place] 32G X 4 MMIndications:Type 2 diabetes mellitus [...] 3 2 Active Blood Glucose Monitoring Suppl ([facility] ULTRA SYSTEM) W/DEVICE KIT Use as directed 4 times a day as needed for Hyperglycemia (high sugar) or Hypoglycemia (low sugar). Use up to four times a day as directed 1 Kit 0 6 06/05/20 22 Discontinu ed(Medicat ion List Clean Up) Blood Glucose Monitoring Suppl ([employer] Technologies[employer]CH VERIO) w/Device KITIndications:Type 2 diabetes mellitus [...] with fat layer exposed 01/09/2022 Atherosclerosis of [place] coronary arter y without angina pectoris [...] getting an eye exam done outside of [facility] please tell your Eye Doctor to fax or mail us the results of your Diabetic Eye Exam at your next visit. Our Address and Fax Number are listed below to help. Thank you for helping us to improve your Diabetes Care Our Office Address and Fax Number: James Maria, Family [address] [address] Diabetic Retinopathy: Evaluating Your Eyes Diabetic retinopathy [...] information about this test. Date Last Reviewed: 04/02/201619998511-0833 [employer]. [address] [place] [address], [place] [address]. All rights reserved. This information is not [...] IF TG IS HIGH; Future Atherosclerosis of [place] coronary artery of [place] heart without angina pectoris Encounter for long-term [...] Visit Family Medicine Sara Recinos, Community Health Chemical Production Engineer [address] [place] [address] 06/18/2022 Office Visit Podiatry Kylie Burroughs DPM [facility] [address] 06/18/2022 Office Visit Pharmacy [facility] Erica 132 [facility] [place] [address] 06/27/2022 [facility] Visit [facility] Rica Taylor, RN 132 [facility] [place] [address] 08/07/2022 Office Visit Dermatology Suha Duran MD [address] [place] [address] 09/03/2022 Office Visit Cardiology Del Díaz Jr., DO 132 [facility] [place] [address] 02/03/2023 Office Visit Family Medicine James Maria, [address] [facility] [place] [address] Scheduled Orders Name Type Priority Associated Diagnoses [...] below 130/80 Unspecified essential hypertension Atherosclerosis of [place] coronary artery of [place] heart without angina pectoris Encounter for long-term (current) use of medications Encounter for long-term (current) use of other medications documented in this encounter Advance Directives Documents on File Type Date Recorded Patient Buildings And Grounds Superintendent Expl 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
--- OUTSIDE RECORDS SUMMARY | 2023-07-31 20:13 | External Medical Summary | Summary of Care ---
Author Name Unknown Organization [place] [address] Care Team Providers Care Wired Sweatband Cutter Name Role Phone James Maria Primary Care Provider Reason for Visit * Reason Onset Date Comments [facility]: Maintenance 06/04/2022 Encounter Details Date Type Department Care Team Description 06/04/2022 Telephone [facility], [facility] 132 [facility] [place] [address] [facility] 132 [place] [address] [facility]: Maintenance Allergies Active Allergy [...] 5 Tab 6 08/24/2017 Active Glucose Blood ([employer] VERIO) STRP Use up to 4 times a day E11.9 300 Strip 3 08/24/2017 Active Blood Glucose Monitoring Suppl ([employer] H2 VERIO) w/Device KITIndications:Type 2 diabetes mellitus with [...] 11 12/27/2021 Active FreeStyle Rose Marie 2 [place] Device Test blood sugars four times daily 1 Each 0 12/27/2021 Active Lantus SoloStar 100 UNIT/ML Subcutaneous Solution Pen-injector (Insulin Glargine)Indication s:Type 2 diabetes mellitus with hemoglobin A1c goal of less than 8.0% (HCC) Inject under the skin 15 Units before bedtime. 15 mL 3 01/06/2022 Active Additional Information Patient taking differently: 20 Units Subcutaneous QHS, Reported on 03/18/2022 Pen [place] 32G X 4 MMIndications:Type 2 diabetes mellitus with hemoglobin A1c goal of less than 8.0% ([facility]) Use as directed . Use [...] days. 28 Capsule 0 06/04/2022 2 Active documented as of this encounter (statuses [...] encounter Miscellaneous Notes * Telephone Encounter - Sherie Larson RN - 06/05/2022 10:43 AM EDT [facility] D/t notes reflecting acceptance Sherie Larson RN, JORDONN SARI nuclear powerplant mechanic helperUltrasonic Seaming Machine Operator * Telephone Encounter - Sherie Larson RN - 06/04/2022 3:14 PM EDT PC from jose daniel Mackenzie from [facility] stating they can NOT accept patient Message routed to care teams Sherie Larson RN, BSN SARI nuclear powerplant mechanic helperUltrasonic Seaming Machine Operator documented in this encounter Plan of Treatment Upcoming Encounters Date Type Specialty Care Team Description 06/05/2022 Office Visit Family Medicine James Maria DO [address] [place] [address] 06/10/2022 Home Visit Family Medicine Sara Recinso, Community Health Concessions Manager [address] [facility] [id number] 06/18/2022 Office Visit Podiatry Kylie Burroughs DPM 400 [facility] [place] [phone] 06/18/2022 Office Visit Pharmacy [facility] Erica 132 [facility] [place] [address] 06/27/2022 Home Visit [facility] Rica Taylor, RN 132 [facility] [place] [address] 08/07/2022 Office Visit Dermatology Suha Duran MD [address] [place] [address] 09/03/2022 Office Visit Cardiology Del Díaz Jr., DO 132 [facility] [place] [address] Scheduled Procedures Name Priority Associated Diagnoses Date/Ti [...] Documents on File Type Date Recorded 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
--- OUTSIDE RECORDS SUMMARY | 2023-07-31 20:13 | External Medical Summary | Summary of Care ---
Author Name Unknown Organization [place] [address] Care Team Providers Care Clam Grader Name Role Phone Crow James Sophy Primary Care Provider Encounter Details Date Type Department Care Team Description 06/04/2022 Home Visit [facility], [facility] [address] [facility] [place] [address] Jenny Logan PA-C 132 [facility] [place] [address] Cellulitis of toe of left foot*; Paroxysmal atrial fibrillation (HCC); HTN, goal below 130/80; Puncture wound of right foot, subsequent encounter; Unsteady gait when walking Allergies Active Allergy Reactions Severity Noted Date [...] 11 2 Active FreeStyle Rose Marie 2 [place] Device Test blood sugars four times daily 1 Each 0 2 Active Lantus SoloStar 100 UNIT/ML Subcutaneous Solution Pen-injector (Insulin Glargine)Indication s:Type 2 diabetes mellitus with hemoglobin A1c goal of less than 8.0% (HCC) Inject under the skin 15 Units before bedtime. 15 mL 3 2 Active Additional Information Patient taking differently: 20 Units Subcutaneous QHS, Reported on 03/18/2022 Pen [place] 32G X 4 MMIndications:Type 2 diabetes mellitus [...] 28 Capsule 0 2 06/11/20 22 Active Blood Glucose Monitoring Suppl ([employer] ULTRA SYSTEM) W/DEVICE KIT Use as directed 4 times a day as needed for Hyperglycemia (high sugar) or Hypoglycemia (low sugar). Use up to four times a day as directed 1 Kit 0 6 06/05/20 22 Discontinu ed(Medicat ion List Clean Up) Blood Glucose Monitoring Suppl ([employer]) w/Device KITIndications:Type 2 diabetes mellitus with hemoglobin A1c goal of 7.0%-8.0% ([facility]) Use as directed. Recommend check glucose levels at least 2 times daily-once in AM before breakfast and once 2 hours after evening meal. 1 Kit 0 8 06/05/20 22 Discontinu ed(Medicat ion List Clean Up) Furosemide 40 MG Oral Tablet (Lasix)Indications: Chronic atrial fibrillation (HCC) Take by mouth 1 Tablet in the morning. 90 Tablet 3 2 06/05/20 22 Discontinu ed(Refill) documented as of this encounter [...] Sign Reading Time Taken Comments Blood Pressure 118/57 06/04/2022 12:25 PM EDT Pulse 57 06/04/2022 12:25 PM EDT Temperature 36.6 C (97.9 F) 06/04/2022 12:25 PM E DT Respiratory Rate 18 06/04/2022 12:25 PM EDT Oxygen Saturation 97% 06/04/2022 12:25 PM EDT Inhaled Oxygen Concentration - - Weight - - Height - - Body Mass Index - - documented in this encounter Progress Notes * Jenny Logan PA-C - 06/05/2022 3:44 PM EDT Images from the original note were not included. [facility] Problem Oriented Charting Provider Visit Date: 06/05/2022 Time: 3:44 PM Ga Sub-Program: Focused Care Management (3-9 months) Assessment and Plan Cellulitis of toe of left foot Assessment & Plan: Wound culture taken Start keflex 500 mg QID x 7 days Wound care clinic tomorrow Orders: - Culture, Wound, Deep, Aerobic and Anaerobic Paroxysmal atrial fibrillation (HCC) Assessment & Plan: Rate controlled Continue metoprolol and eliquis HTN, goal below 130/80 Assessment & Plan: BP at goal Continue lasix 40 mg daily Puncture wound of right foot, subsequent encounter Assessment & Plan: Healing well Going to wound care Unsteady gait when walking Assessment & Plan: PT/OT eval ordered/faxed Additional Medical Decision Making: Selvin was seen with his , Farhana, today. She aided in communication ([place]) and information. It appears that the R foot is healing well. The left great toe has a wound and associated cellulitis. A culture was taken. Pt was started on Keflex. He will f/u withwound care tomorrow. He also has been experiencing some low blood sugars-usually around noon time. I believe the pt is giving himself extra novolog if his BS is running high. I advised against this. We will monitor his BS over the next few weeks. He also has an appointment with MTM on 06/18. I will f/u with pt next week. ADVANCED CARE PLANNING: Briefly discussed with . They have not yet discussed this. I provided aPOLST form, which we can discuss next visit. Scheduled appointments in the next 60 days: Future Appointments-next 60 days Date/Time Provider Specialty Dept Phone 06/10/2022 12:00 PM Sara Recinos, [facility] Family Medicine [phone] 06/18/2022 1:00 PM (Arrive by 12:45 PM) Kylie Burroughs DPM Podiatry [phone] 06/18/2022 2:30 PM [facility] [phone] 06/27/2022 2:30 PM Rica Taylor RN [facility] [phone] 08/07/2022 1:00 PM (Arrive by 12:45 PM) Suha Duran MD Dermatology [phone] 09/03/2022 3:00 PM (Arrive by 2:45 PM) Del Díaz Jr., Cardiology [phone] 02/03/2023 1:20 PM (Arrive by 1:05 PM) James Maria [facility] [phone] A total of 60 minutes was spent face to face (via video-based telemedicine if designated as a telemedicine visit) Subjective Subjective Is this a Telemedicine Visit? No, this is an Home Visit. Reason For [facility] Visit: Follow-Up Current Concerns: Selvin Sebastian is a 76 year old male seen today for a [facility] provider visit. Today's concerns: 1. L foot discoloration. Noticed for the last week. Denies pain or injury. No drainage noticed. No fever 2. Blood sugars have occasionally been running low around noon time. Pt reports getting high readings during lunch time that seem to persist, which prompted him to occasionally give himself an extra dose of novolog. This was discussed and discouraged. He will follow up with MTM to discuss adjustments. 3. Unsteadiness. Fell off the second rung of a ladder last week. Landed on his feet. Scraped his chest. Currently denies pain or difficulty breathing. Denies dizziness. Ambulating without any aids. Additional Review of Systems All other systems reviewed and are negative. Objective Objective BP 118/57 (BP Site: Right Arm, BP Position: Sitting) | Pulse 57 | Temp 36.6 C (97.9 F) | Resp 18 | SpO2 97% Last Weights: Wt Readings from Last 3 Encounters: 06/05/22 80.8 kg (178 lb 3 oz) 05/23/22 77.3 kg (170 lb 6.4 oz) 05/16/22 76.9 kg (169 lb 9.6 oz) Last BPs: BP Readings from Last 4 Encounters: 06/05/22 108/54 06/04/22 118/57 05/27/22 118/70 05/23/22 102/60 Physical Exam HENT: Head: Normocephalic. Cardiovascular: Comments: [...] alert. Psychiatric: Mood and Affect: Mood normal. Lab Review: I have reviewed the following results: BMP results Recent Labs Units 05/21/22 1649 11/08/21 0000 02/27/21 1124 SODIUM - [facility] mmol/L 136 -- 134* POTASSIUM - [facility] mmol/L 3.6 -- 4.2 POTASSIUM-OUTSIDE LAB MMOL/L -- 4.3 -- CHLORIDE - [facility] mmol/L 95* -- 97* CO2 - [facility] mmol/L 27 -- 23 CREATININE - [facility] mg/dL 1.0 -- 1.0 CREATININE-OUTSIDE LAB MG/DL -- 1.32 -- BUN - [facility] mg/dL 13 -- 14 CBC results Recent Labs Units 05/21/22 1649 11/08/21 0000 02/27/21 1124 WBC AUTO - [facility] K/uL 11.24* -- 9.72 HGB - [facility] g/dL 12.3* -- 14.6 HEMOGLOBIN-OUTSIDE LAB G/DL -- 13.3* -- HCT - [facility] % 37.3* -- 42.6 PLATELET AUTO - [facility] K/uL 343 -- 292 HbA1c results Recent Labs Units 05/21/22 1649 02/27/21 1124 HEMOGLOBIN A1C - [facility] % 7.8* 13.2* Medication Review "Bottles Out" medication review not performed today due to no changes with medication list reviewedand updated in the EMR as appropriate Jenny Logan PA-C 3:44 PM *Communication sent to PCP (via autofax if [facility]), [facility] Health Care Team members,relevant Specialty Care Physicians* documented in this encounter Miscellaneous Notes * Assessment & Plan Note - Jenny Logan PA-C - 06/05/2022 4:20 PM EDT Associated Problem(s): Paroxysmal atrial fibrillation (HCC) Rate controlled Continue metoprolol and eliquis * Assessment & Plan Note - Jenny Logan PA-C - 06/05/2022 4:19 PM EDT Associated Problem(s): Cellulitis of toe of left foot Wound culture taken Start keflex 500 mg QID x 7 days Wound care clinic tomorrow * Assessment & Plan Note - Jenny Logan PA-C - 06/05/2022 4:18 PM EDT Associated Problem(s): Unsteady gait when walking PT/OT eval ordered/faxed * Assessment & Plan Note - Jenny Logan PA-C - 06/05/2022 4:18 PM EDT Associated Problem(s): Puncture wound of right foot Healing well Going to wound care * Assessment & Plan Note - Jenny Logan PA-C - 06/05/2022 4:16 PM EDT Associated Problem(s): Type 2 diabetes mellitus with hemoglobin A1c goal of less than 8.0% (HCC) BS have been hitting lows due to extra novolog Encouraged pt to stick to novolog 5 u TID with meals, metformin 1000 mg BID, Lantus 20 u at night. Will f/u with MTM to discuss * Assessment & Plan Note - Jenny Logan PA-C - 06/05/2022 4:15 PM EDT Associated Problem(s): HTN, goal below 130/80 BP at goal Continue lasix 40 mg daily documented in this encounter Plan of Treatment Upcoming Encounters Date Type Specialty Care Team Description 06/10/2022 Home Visit Family Medicine Sara Recinos, Community Health Coal Hauler [address] [place] [address] 06/18/2022 Office Visit Podiatry Kylie Burroughs, DPM 400 [facility] [place] [address] 06/18/2022 Office Visit [facility]acy [facility]a [address] [facility] [place] [address] 06/27/2022 [facility] Visit [facility] Rica Taylor, RN 132 [facility] [place] [address] 08/07/2022 Office Visit Dermatology Suha Duran MD [address] [place] [address] 09/03/2022 Office Visit Cardiology Del Díaz Jr., DO [address] [facility] [place] [address] 02/03/2023 Office Visit Family Medicine James Maria, DO [address] [facility] [place] [address] Pending Results Name Type Priority Associated Diagnoses Date /Time CULTURE, WOUND, DEEP, AEROBIC AND ANAEROBIC Lab Routine Cellulitis of toe of left foot 06/04/2022 12:57 PM EDT Scheduled Procedures Name Priority Associated [...] Procedure Name Priority Date/Time Associated Diagnosis Comments CULTURE, WOUND, DEEP, AEROBIC AND ANAEROBIC Routine 06/04/2022 12:57 PM EDT Cellulitis of toe of left foot documented in this encounter Visit Diagnoses Diagnosis Cellulitis of toe of left foot- Primary Cellulitis and abscess of toe, unspecified Paroxysmal atrial fibrillation (HCC) Atrial fibrillation HTN, goal below 130/80 Unspecified essential hypertension Puncture wound of right foot, subsequent encounter Unsteady gait when walking documented in this encounter Advance Directives Documents on File Type Date Recorded Patient Chip Applying Machine Tender Expl anation Advanced Directive service a hi [...] Directive Advanced Directive Advanced Directive Care Teams Clam Grader Relationship Specialty Start Date End Date James Maria, 132 [facility] [place] [address] PCP - General Family Medicine 06/07/18 documented as of this encounter
--- OUTSIDE RECORDS SUMMARY | 2023-07-31 20:13 | External Medical Summary ---
Author Name Unknown Address Unknown Organization K01:[facility] - [address] [place] [address] Laboratory Report Ordering Provider Test Date Status BENJAMIN BA 06/05/2022 14:59:58 Final Observation Date Value Abnormality Reference (Units ) Status Albumin, Urine 06/05/2022 14:59:58 4.05 (mg/dL) Final Creatinine, Urine 06/05/2022 14:59:58 29 (mg/dL) Final Albumin/Creatinine [Mass Ratio] in Urine 06/05/2022 14:59:58 140 Above high normal <30 (mg/g Creat) Final Performing Location [facility] [address] [place] [address]
--- OUTSIDE RECORDS SUMMARY | 2023-07-31 20:13 | External Medical Summary | Summary of Care ---
Author Name Unknown Organization [place] [address] Care Team Providers Care Inspector Shells Name Role Phone James Maria Primary Care Provider Reason for Visit * Reason Onset Date Comments Appointment 06/06/2022 Encounter Details Date Type Department Care Team Description 06/06/2022 Telephone [facility] [place] [address] [place] [address] Services, Scheduling [address] [place] [address] Appointment Allergies Active Allergy Reactions Severity Noted [...] 11 12/27/2021 Active FreeStyle Rose Marie 2 [place] Device Test blood sugars four times daily 1 Each 0 12/27/2021 Active Lantus SoloStar 100 UNIT/ML Subcutaneous Solution Pen-injector (Insulin Glargine)Indications :Type 2 diabetes mellitus with hemoglobin A1c goal of less than 8.0% (HCC) Inject under the skin 15 Units before bedtime. 15 mL 3 01/06/2022 Active Additional Information Patient taking differently: 20 Units Subcutaneous QHS, Reported on 03/18/2022 Pen [place] 32G X 4 MMIndications:Type 2 diabetes mellitus [...] for 7 days. 28 Capsule 0 06/04/2022 Active Insulin Aspart 100 UNIT/ML Subcutaneous Solution [...] with fat layer exposed 01/09/2022 Atherosclerosis of [place] coronary arter y without angina pectoris 01/09/2022 [...] Telephone Encounter - Jane Merino LPN - 06/06/2022 9:39 AM EDT Patient spouse calling back 06/18 appointment not going to work needs it cancelled. Will cancel and send to scheduling to reach out with new appt date and time. * Telephone Encounter - MICHEL Estrada - 06/06/2022 9:12 AM EDT In basket request to cancel ARABELLA visit on 06/10 and reschedule an AP home visit with A Desmond instead. Found 06/16@10am and called to lmom of this apptmt documented in this encounter Plan of Treatment Upcoming Encounters Date Type Specialty Care Team Description 06/18/2022 Office Visit Podiatry Kylie Burroughs, [facility] [address] [facility] [place] [address] 06/18/2022 Office Visit [facility]acy [facility] Erica [address] [place] [address] 06/18/2022 Home Visit [facility] Jenny Logan PA-C [address] [place] [address] 06/27/2022 Home Visit [facility] Rica Taylor, RN [address] [place] [address] 08/07/2022 Office Visit Dermatology Suha Duran MD 16 [facility] [address] 09/03/2022 Office Visit Cardiology Del Díaz Jr., DO [address] [place] [address] 02/03/2023 Office Visit Family Medicine James Maria, [address] [place] [address] Scheduled Procedures Name Priority Associated Diagnoses Date/Ti [...] Documents on File Type Date Recorded Patient Closing Agent Expl anation Advanced Directive service a hi [...] Directive Advanced Directive Advanced Directive Care Teams Inspector Shells Relationship Specialty Start Date End Date James Maria DO [address] [place] [address] PCP - General Family Medicine 06/07/18 documented as of this encounter
--- OUTSIDE RECORDS SUMMARY | 2023-07-31 20:13 | External Medical Summary | Summary of Care ---
Author Name Unknown Organization [place] [address] Care Team Providers Care Cement Fittings Maker Name Role Phone Rylan Mariar Sophy Primary Care Provider Encounter Details Date Type Department Care Team Description 06/05/2022 Telephone [facility] [place] 132 [facility] [place] [address] Jneny Logan PA-C 132 [facility] [place] [address] Allergies Active Allergy Reactions Severity Noted Date [...] 11 12/27/2021 Active FreeStyle Rose Marie 2 [place] Device Test blood sugars four times daily 1 Each 0 12/27/2021 Active Lantus SoloStar 100 UNIT/ML Subcutaneous Solution Pen-injector (Insulin Glargine)Indications :Type 2 diabetes mellitus with hemoglobin A1c goal of less than 8.0% (HCC) Inject under the skin 15 Units before bedtime. 15 mL 3 01/06/2022 Active Additional Information Patient taking differently: 20 Units Subcutaneous QHS, Reported on 03/18/2022 Pen [place] 32G X 4 MMIndications:Type 2 diabetes mellitus [...] with fat layer exposed 01/09/2022 Atherosclerosis of [place] coronary arter y without angina [...] with worsening symptoms. Will plan nurse or [facility] provider telemedicine recheck visit one week to [...] encounter Miscellaneous Notes * Telephone Encounter - Jenny Logan PA-C - 06/05/2022 4:24 PM EDT Please schedule me for a follow up visit in 1 week (home visit) Please cancel ARABELLA appointment on 06/10 thank you documented in this encounter Plan of Treatment Upcoming Encounters Date Type Specialty Care Team Description 06/10/2022 Home Visit Family Medicine Sara Recinos, Community [facility] Local Owner Operator Truck Driver [address] [place] [address] 06/18/2022 Office Visit Podiatry Kylie Burroughs DPM [address] [place] [address] 06/18/[address] [facility] [address] 06/27/2022 Home Visit [facility] Rica Taylor RN 132 [facility] [place] [address] 08/07/2022 Office Visit Dermatology Suha Duran MD [address] [place] [address] 09/03/2022 Office Visit Cardiology Del Díaz Jr., DO 132 [facility] [place] [address] 02/03/2023 Office Visit Family Medicine James Maria, 132 [facility] [place] [address] Scheduled Procedures Name Priority Associated Diagnoses Date/Ti [...] Documents on File Type Date Recorded 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
--- OUTSIDE RECORDS SUMMARY | 2023-07-31 20:13 | External Medical Summary | Summary of Care ---
Author Name Unknown Organization [place] [address] Care Team Providers Care Electric Wirer Name Role Phone James Maria Primary Care Provider Reason for Visit * Reason Onset Date Comments Appointment 06/06/2022 Encounter Details Date Type Department Care Team Description 06/06/2022 Telephone [facility] [place], [place] [address] [place] [address] Services, Scheduling [address] [place] [address] Appointment Allergies Active Allergy Reactions Severity Noted [...] 11 12/27/2021 Active FreeStyle Rose Marie 2 [place] Device Test blood sugars four times daily 1 Each 0 12/27/2021 Active Lantus SoloStar 100 UNIT/ML Subcutaneous Solution Pen-injector (Insulin Glargine)Indications :Type 2 diabetes mellitus with hemoglobin A1c goal of less than 8.0% (HCC) Inject under the skin 15 Units before bedtime. 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 Found 06/16@10am and called to lmom of this apptmt documented in this encounter Plan of Treatment Upcoming Encounters Date Type Specialty Care Team Description 06/16/2022 Home Visit [facility] Jenny Logan PA-C [address] [place] [address] 06/18/2022 Office Visit Podiatry Kylie Burroughs, DPMarga 400 [facility] [place] [address] 06/18/2022 Office Visit Pharmacy [facility] Erica [address] [place] [address] 06/27/2022 Home Visit [facility] Rica Taylor, RN [address] [place] [address] 08/07/2022 Office Visit Dermatology Suha Duran MD 16 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
--- OUTSIDE RECORDS SUMMARY | 2023-07-31 20:14 | External Medical Summary ---
Author Name Unknown Address Unknown Organization K01:[facility] [address] [place] [address] Laboratory Report Ordering Provider Test Date Status ANA PAL 06/04/2022 12:57:46 Final Observation Date Value Abnormality Reference (Units ) Status Bacteria identified in Unspecified specimen by Culture 06/04/2022 12:57:46 [id number] LOCOCCUS AUREUS Abnormal Final Performing Location [facility] - [address] [place] [address] Ordering Provider Test Date Status ANA PAL 06/04/2022 12:57:46 Final Observation Date Value Abnormality Reference (Units ) Status Clindamycin 06/04/2022 12:57:46 <=0.25 Susceptible Final Erythromycin susceptibility 06/04/2022 12:57:46 <=0.25 Susceptible Final Oxacillinsusceptibility 06/04/2022 12:57:46 <=0.25 Susceptible Final Penicillin susceptibility 06/04/2022 12:57:46 0.06 Resistant Final Tetracyclinesusceptibility 06/04/2022 12:57:46 >=16 Resistant Final TMP-SMZ susceptibility 06/04/2022 12:57:46 <=10 Susceptible Final Vancomycinsusceptibility 06/04/2022 12:57:46 <=0.5 Susceptible Final Performing Location LABORATORY C - [address] [address]
--- OUTSIDE RECORDS SUMMARY | 2023-07-31 20:14 | External Medical Summary | Summary of Care ---
Author Name Unknown Organization [place] [address] Care Team Providers Care Handkerchief Maker Name Role Phone James Maria Primary Care Provider Encounter Details Date Type Department Care Team Description 06/03/2022 Telephone [facility] [place] 132 [facility] [place] [address] Jenny Logan PA-C 132 [facility] [place] [address] Allergies Active Allergy Reactions Severity Noted Date Comments Lisinopril Edema face/lips/tongue High 04/05/2018 documented as of this encounter (statuses as of 06/03/2022) Medications Medication Sig Dispensed Refills Start Date [...] Tab 6 08/24/2017 Active Glucose Blood (ONETOUCH VERPeregrine Diamonds) STRP Use up to 4 times a day E11.9 300 Strip 3 08/24/2017 Active Blood Glucose Monitoring Suppl (Ahead) w/Device KITIndications:Type 2 diabetes mellitus with hemoglobin [...] 11 12/27/2021 Active FreeStyle Rose Marie 2 [place] Device Test blood sugars four times daily 1 Each 0 12/27/2021 Active Lantus SoloStar 100 UNIT/ML Subcutaneous Solution Pen-injector (Insulin Glargine)Indication s:Type 2 diabetes mellitus with hemoglobin A1c goal of less than 8.0% (HCC) Inject under the skin 15 Units before bedtime. 15 mL 3 01/06/2022 Active Additional Information Patient taking differently: 20 Units Subcutaneous QHS, Reported on 03/18/2022 Pen [place] 32G X 4 MMIndications:Type 2 diabetes mellitus [...] as of this encounter (statuses as of 06/03/2022) Active Problems Problem Noted Date Unsteady gait [...] with fat layer exposed 01/09/2022 Atherosclerosis of [place] coronary arter y without angina pectoris 01/09/2022 [...] as of this encounter (statuses as of 06/03/2022) Resolved Problems Problem Noted Date Resolved Date [...] as of this encounter (statuses as of 06/03/2022) Immunizations Name Administration Dates Next Due COVID-19 [...] Telephone Encounter - Jenny Logan PA-C - 06/03/2022 4:07 PM EDT Could you please fax the order for PT/OT?' Thank you! documented in this encounter Plan of Treatment Upcoming Encounters Date Type Specialty Care Team Description 06/04/2022 Home Visit [facility] Jenny Logan PA-C [address] [place] [address] 06/05/2022 Office Visit Family Medicine James Maria DO [address] [place] [address] 06/10/2022 Home Visit Family Medicine Sara Recinos, Community [facility] Nurseryperson [address] [place] [address] 06/18/2022 Office Visit Podiatry Kylie Burroughs DPM [address] [facility] [place] [address] 06/18/2022 Office Visit Pharmacy [facility] Nick Maldonado [address] [place] [address] 06/27/2022 Home Visit [facility] Rica Taylor, RN [address] [place] [address] 08/07/2022 Office Visit Dermatology Suha Duran MD [address] [place] [address] 09/03/2022 Office Visit Cardiology Arjun Nielsen, [place], 132 [facility] [place] [address] Scheduled Procedures Name Priority Associated Diagnoses Date/Ti [...] Documents on File Type Date Recorded 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
--- OUTSIDE RECORDS SUMMARY | 2023-07-31 20:14 | External Medical Summary | Summary of Care ---
Author Name Unknown Organization [place] [address] Care Team Providers Care Lpn Private Duty Name Role Phone James Maria Primary Care Provider Reason for Referral * Evaluate & Treat - Unlimited Visits (Within 10 days (routine)) - Authorized Specialty Diagnoses / Procedures Referred By Collin leigh Referred To Contact Physical Therapy / Physical Medicine And Rehab Diagnoses Unsteady gait when walking Jenny Logan PA-C 132 [facility] [place] [address] Referral ID Status Reason Start Date Expiration Date Visits Requested Visits Authorized [id number] Authorized Specialty Services Required 05/27/[phone] Question Answer Referral Priority Within 10 days (routine) Reason for Visit * Reason Comments [facility]: Maintenance Encounter Details Date Type Department Care Team Description 05/27/2022 Telemedicine [facility], [facility] 132 [facility] [place] [address] Wendy Cisneros CRNP 132 [facility] [place] [address] Radha Lazaro, [facility] [employer] [address] [place] [address] Paroxysmal atrial fibrillation (HCC)*; HTN, goal below 130/80; Type 2 diabetes mellitus with polyneuropathy (HCC); Puncture wound of right foot, subsequent encounter; Unsteady gait when walking Allergies Active Allergy Reactions Severity Noted Date Comments Lisinopril Edema face/lips/tongue High 04/05/2018 documented as of this encounter (statuses as of 05/28/2022) Medications Medication Sig Dispensed Refills Start Date End Date Status Blood Glucose Monitoring Suppl ([employer] ULTRA SYSTEM) W/DEVICE KIT Use as directed [...] 3 08/24/2017 Active Blood Glucose Monitoring Suppl (ModulusUCH VERIO) w/Device KITIndications:Type 2 diabetes mellitus with hemoglobin A1c goal of 7.0%-8.0% ([facility]) Use as directed. Recommend check glucose levels [...] 11 12/27/2021 Active FreeStyle Rose Marie 2 [place] Device Test blood sugars four times daily 1 Each 0 12/27/2021 Active Lantus SoloStar 100 UNIT/ML Subcutaneous Solution Pen-injector (Insulin Glargine)Indication s:Type 2 diabetes mellitus with hemoglobin A1c goal of less than 8.0% ([facility]) Inject under the skin 15 Units before bedtime. 15 mL 3 01/06/2022 Active Additional Information Patient taking differently: 20 Units Subcutaneous QHS, Reported on 03/18/2022 Pen [place] 32G X 4 MMIndications:Type 2 diabetes mellitus with hemoglobin A1c goal of less than 8.0% ([facility]) Use as directed . Use to [...] as of this encounter (statuses as of 05/28/2022) Active Problems Problem Noted Date Unsteady gait [...] with fat layer exposed 01/09/2022 Atherosclerosis of [place] coronary arter y without angina pectoris 01/09/2022 [...] as of this encounter (statuses as of 05/28/2022) Resolved Problems Problem Noted Date Resolved Date [...] DM type 2, not at goal 04/05/2009 10/200 9 Overview: Modified per Diabetes protocol #14. [...] as of this encounter (statuses as of 05/28/2022) Immunizations Name Administration Dates Next Due COVID-19 [...] Sign Reading Time Taken Comments Blood Pressure 118/70 05/27/2022 5:12 PM EDT Pulse 56 05/27/2022 5:12 PM EDT Temperature 37 C (98.6 F) 05/27/2022 5:12 PM EDT Respiratory Rate 18 05/27/2022 5:12 PM EDT Oxygen Saturation 98% 05/27/2022 5:12 PM EDT Inhaled Oxygen Concentration - - Weight - - Height - - Body Mass Index - - documented in this encounter Progress Notes * Radha Lazaro, [facility] - 05/27/2022 12:30 PM EDT [facility] Visit Date: 05/27/2022 Time: 12:46 PM Name: Selvin Sebastian : 1945 Referral Source: general production manager Source of Information: Patient and Spoken language: Citizen [place] NOTE: Very hard of hearing Patient can read in [place]: Yes. Brand Analyst needed: No. May need to use written questions or speak in to his right ear COVID-19 screening completed: Yes Vitals: Vital signs completed: Yes, vital signs within normal range. BP 118/70 (BP Site: Left Arm, BP Position: Sitting) | Pulse 56 | Temp 37 C (98.6 F) | Resp 18 |SpO2 98% Condition Changes: Changes in health or social status since last visit: Patients home was recently taken by this [facility]. per it was not livable. Patient is staying between his sisters home and his 's home bella his car. He and are not to gethere but still .She does help him with his foot dressing changes. ARABELLA contacted [employer] regarding this situation mentioned that they have called The patient has new concerns since last visit: No Medications: Medication review completed? Yes, no gaps identified Does the patient have barriers to medication adherence? No. Patient reports difficulty paying for medications or might in the future: No. Telehealth: This is a telehealth visit: Yes. Type of telehealth visit: Transition of Care Visit conducted with: Physician/AP Symptoms Surveys and Evaluations: [facility] completed this visit: No. Last flowsheet values for [facility]: Age 65+: 1 (05/21/2022 4:00 PM) Diagnosis (3 or more co-existing): 1 (05/21/2022 4:00 PM) Prior history of falls within 3 months: 1 (05/21/2022 4:00 PM) Incontinence: 0 (05/21/2022 4:00 PM) Visual impairment: 0 (05/21/2022 4:00 PM) Impaired functional mobility: 1 (05/21/2022 4:00 PM) Environmental hazards: 1 (05/21/2022 4:00 PM) Poly Pharmacy (4 or more prescriptions - any type): 1 (05/21/2022 4:00 PM) Pain affecting level of function: 0 (05/21/2022 4:00 PM) Cognitive impairment: 0 (05/21/2022 4:00 PM) Score - a score of 4 or more is considered at risk for fallin (05/21/2022 4:00 PM) Plan: Reinforced patient's three red flags by the care team Patient's 'Red Flags': 1. Increased edema 2. Redness or foul drainage from wounds 3. Consistent bsg less than 70 or over 300 Follow Up: Patient encouraged to call the intake phone number for all urgent but not emergent issues. Scheduled to follow up with patient as needed Radha Lazaro [facility] 05/27/2022 12:46 PM * Jenny Logan PA-C - 05/26/2022 9:36 PM EDT Images from the original note were not included. [facility] Problem Oriented Charting Provider Visit Date: 05/26/2022 Time: 9:36 PM [facility] Cohort: Focused Care Management (3-9 months) Assessment and Plan Paroxysmal atrial fibrillation (HCC) Assessment & Plan: Rate controlled Continue metroprolol 25 mg BID, Eliquis 5 mg BID HTN, goal below 130/80 Assessment & Plan: BP at goal Type 2 diabetes mellitus with polyneuropathy (HCC) Assessment & Plan: HgbA1C 7.8 on 05/21/22. Readings usually in the 100's Continue Lantus 20 u HS, Novolog 5 u TID with meals Puncture wound of right foot, subsequent encounter Assessment & Plan: Finished abx. No surrounding erythema. Some erythema on quintana, but chronic. Continue to dress wound daily F/u schedule with Dr. Catalan (ortho) and Dr. Burroughs (podiatry) Unsteady gait when walking Assessment & Plan: No actual falls, but has bumped into goetz while walking. Denies hitting his head. PT/OT eval and treat Additional Medical Decision Making: Mr. Sebastian'mathew R foot appears to be healing well. His vital signs are stable. He does report getting unsteady on his feet and has fallen against doorways/goetz. Neverfall to ground. Never has hit head. Denies dizziness. Will get PT/OT eval. He is knowledgeable of his medications and checks blood sugars regularly. He will f/u with ortho and podiatry as scheduled. He has follow up scheduled with us 06/10 for a recheck. Home Interventions Provided: Specialty Referral Placed Scheduled appointments in the next 60 days: Future Appointments-next 60 days Date/Time Provider Specialty Dept Phone 05/27/2022 12:30 PM Radha Lazaro [facility]; [facility] [phone] 06/03/2022 10:00 AM Radha Lazaro [facility]; [facility] [phone] 06/05/2022 2:40 PM (Arrive by 2:25 PM) James Maria DO Family Medicine [phone] 06/10/2022 12:00 PM Sara Recinos [facility] Family Medicine [phone] 06/18/2022 1:00 PM (Arrive by 12:45 PM) Kylie Burroughs DPM Podiatry [phone] 06/18/2022 2:30 PM [facility] [phone] 06/27/2022 2:30 PM Rica Taylor RN [facility] [phone] 08/07/2022 1:00 PM (Arrive by 12:45 PM) Suha Duran MD Dermatology [phone] 09/03/2022 3:00 PM (Arrive by 2:45 PM) Del Díaz Jr., DO Cardiology [phone] A total of 35 minutes was spent face to face (via video-based telemedicine if designated as a telemedicine visit) Subjective Subjective Is this a Telemedicine Visit? Yes, Patient location: HOME. I was not in a hospital or clinic location. After connecting through televideo, patient was verified with two unique identifiers. Patient (or authorized legal security representative) was then informed that this was a Telemedicine visit and being conducted confidentially over secure lines. Methods to assure confidentiality were taken. Patient acknowledged consent and understanding of privacy and security of the Telemedicine visit. The patient agreed to participate. Reason For [facility] Visit: Follow-Up Current Concerns: Selvin Sebastian is a 76 year old male seen today for a [facility] provider visit. Today's concerns: Pt reports being somewhat tired. Appetite has been good. No pain in the foot from the puncture wound. He finished his course of ABX. Stays with his sister or his . Family helps with meals. No recent falls but has been unsteady on occasion No dizziness. No fevers reported. Bandaging the R foot daily with the help of family. Still driving. comes with him to appointments because of his hearing loss. Objective Objective There were no vitals taken for this visit. Last Weights: Wt Readings from Last 3 Encounters: 05/23/22 77.3 kg (170 lb 6.4 oz) 05/16/22 76.9 kg (169 lb 9.6 oz) 02/25/22 84.8 kg (187 lb) Last BPs: BP Readings from Last 4 Encounters: 05/23/22 102/60 05/21/22 110/60 05/16/22 116/62 05/02/22 122/58 Physical Exam HENT: Head: Normocephalic. Cardiovascular: Rate and Rhythm: Normal rate and regular rhythm. Pulmonary: Effort: Pulmonary effort is normal. Breath sounds: Normal breath sounds. Musculoskeletal: Comments: Puncture wound to sole of R foot without any surrounding erythema or edema Mild erythema on R quintana with trace nonpitting edema Neurological: General: No focal deficit present. Mental Status: He is alert. Psychiatric: Mood and Affect: Mood normal. Lab Review: I have reviewed the following results: BMP results Recent Labs Units 05/21/22 1649 11/08/21 0000 02/27/21 1124 06/01/20 1518 SODIUM - [facility] mmol/L 136 -- 134* 135 POTASSIUM - [facility] mmol/L 3.6 -- 4.2 4.5 POTASSIUM-OUTSIDE LAB MMOL/L -- 4.3 -- -- CHLORIDE - [facility] mmol/L 95* -- 97* 93* CO2 - [facility] mmol/L 27 -- 23 29 CREATININE - [facility] mg/dL 1.0 -- 1.0 1.1 CREATININE-OUTSIDE LAB MG/DL -- 1.32 -- -- BUN - [facility] mg/dL 13 -- 14 17 Lipid panel results Recent Labs Units 02/27/21 1124 CHOLESTEROL - [facility] mg/dL 125 LDL CHOLESTEROL (CALCULATED) - [facility] mg/dL 70 HDL CHOLESTEROL - [facility] mg/dL 42 TRIGLYCERIDES - [facility] mg/dL 65 CBC results Recent Labs Units 05/21/22 1649 [...] 13.2* Medication Review "Bottles Out" medication review performed today and medication list in EMR updated Jenny Logan PA-C 9:36 PM *Communication sent to PCP (via [facility] if [facility]), [facility]/Population Health Care Team members,relevant Specialty Care Physicians* documented in this encounter Miscellaneous Notes * Assessment & Plan Note - Jenny Logan PA-C - 05/27/2022 3:59 PM EDT Associated Problem(s): Puncture wound of right foot Finished abx. No surrounding erythema. Some erythema on quintana, but chronic. Continue to dress wound daily F/u schedule with Dr. Catalan (ortho) and Dr. Burroughs (podiatry) * Assessment & Plan Note - Jenny Logan PA-C - 05/27/2022 3:58 PM EDT Associated Problem(s): HTN, goal below 130/80 BP at goal * Assessment & Plan Note - Jenny Logan PA-C - 05/27/2022 3:56 PM EDT Associated Problem(s): Unsteady gait when walking No actual falls, but has bumped into goetz while walking. Denies hitting his head. PT/OT eval and treat * Assessment & Plan Note - Jenny Logan PA-C - 05/27/2022 3:54 PM EDT Associated Problem(s): Type 2 diabetes mellitus with polyneuropathy (HCC) HgbA1C 7.8 on 05/21/22. Readings usually in the 100's Continue Lantus 20 u HS, Novolog 5 u TID with meals * Assessment & Plan Note - Jenny Logan PA-C - 05/27/2022 3:52 PM EDT Associated Problem(s): Paroxysmal atrial fibrillation (HCC) Rate controlled Continue metroprolol 25 mg BID, Eliquis 5 mg BID documented in this encounter Plan of Treatment Upcoming Encounters Date Type Specialty Care Team Description 06/03/2022 Telemedicine [facility] Wendy Cisneros CRNP [address] [place] [address] Radha Lazaro, [facility] [address] [place] [address] 06/05/2022 Office Visit Family Medicine James Maria DO [address] [place] [address] 06/10/2022 Home Visit Family Medicine Sara Recinos, [facility] [place] [address] 06/18/2022 Office Visit Podiatry Kylie Burroughs, DPMarga [address] [facility] [place] [address] 06/18/2022 Office Visit Pharmacy [facility] Erica 132 [facility] [place] [address] 06/27/2022 Home Visit [facility] Rica Taylor RN 132 [facility] [place] [address] 08/07/2022 Office Visit Dermatology Suha Duran MD 16 [place], [place] [phone] 09/03/2022 Office Visit Cardiology Del Díaz Jr., DO 132 [facility] [place] [address] Scheduled Procedures Name Priority Associated Diagnoses Date/Ti me COLONOSCOPY FLEXIBLE PROXIMA L DIAGNOSTIC Recall Encounter for screening colonoscopy Scheduled Referrals Name Type Priority Associated Diagnoses Orde r Schedule PHYSICAL THERAPY REFERRAL OP Referral Within 10 days (routine) Unsteady gait when walking Ordered: 05/27/2022 Health Maintenance Due Date Last Done Comments [...] encounter Visit Diagnoses Diagnosis Paroxysmal atrial fibrillation (HCC)- Primary Atrial fibrillation HTN, goal below 130/80 Unspecified essential hypertension Type 2 diabetes mellitus with polyneuropathy (HCC) Type II or unspecified type diabetes mellitus with neurological manifestations, not stated as uncontrolled Puncture wound of right foot, subsequent encounter Unsteady gait when walking documented in this encounter Advance Directives Documents on File Type Date Recorded 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
--- OUTSIDE RECORDS SUMMARY | 2023-07-31 20:14 | External Medical Summary | Summary of Care ---
Author Name Unknown Organization [place] [address] Care Team Providers Care Rn Procedure Name Role Phone James Maria DO Primary Care Provider Encounter Details Date Type Department Care Team Description 05/28/2022 Scan Encounter Family Practice [facility] [address] [place] [address] James Maria DO [address] [place] [address] <No scans attached> Allergies Active Allergy Reactions [...] 5 Tab 6 08/24/2017 Active Glucose Blood (TravelCLICKTOUCH VERIO) STRP Use up to 4 times a day E11.9 300 Strip 3 08/24/2017 Active Blood Glucose Monitoring Suppl ([employer]) w/Device KITIndications:Type 2 diabetes mellitus with hemoglobin [...] 11 12/27/2021 Active FreeStyle Rose Marie 2 [place] Device Test blood sugars four times daily 1 Each 0 12/27/2021 Active Lantus SoloStar 100 UNIT/ML Subcutaneous Solution Pen-injector (Insulin Glargine)Indication s:Type 2 diabetes mellitus with hemoglobin A1c goal of less than 8.0% (HCC) Inject under the skin 15 Units before bedtime. 15 mL 3 01/06/2022 Active Additional Information Patient taking differently: 20 Units Subcutaneous QHS, Reported on 03/18/2022 Pen [place] 32G X 4 MMIndications:Type 2 diabetes mellitus [...] layer exposed 01/09/2022 Atherosclerosis of [place] coronary arter y without angina pectoris 01/09/2022 [...] Date Type Specialty Care Team Description 06/04/2022 Telemedicine [facility] Wendy Cisneros CRNP 132 [place] [address] Sara Recinos, [facility] B[employer] Torch Operator [address] [place] [address] 06/05/2022 Office Visit Family Medicine James Maria DO 132 [place] [address] 06/10/2022 Home Visit Family Medicine Sara Recinos, [facility] Health Blow Torch Operator [address] [place] [address] 06/18/2022 Office Visit Podiatry Kylie Burroughs DPM [address] [place] [phone] 06/18/2022 Office Visit Pharmacy [facility] Erica 132 [place] [address] 06/27/2022 Home Visit [facility] Rica Taylor RN 132 [place] [address] 08/07/2022 Office Visit Dermatology Suha Duran MD 16 [place], [place] [phone] 09/03/2022 Office Visit Cardiology Arjun Nielsen, Del Gann, DO [address] [place] [address] Scheduled Procedures Name Priority Associated Diagnoses Date/Ti [...] Documents on File Type Date Recorded Patient Chemical Educator Expl anation Advanced Directive service a hi [...] Directive Advanced Directive Advanced Directive Care Teams Rn Procedure Relationship Specialty Start Date End Date James Maria DO 132 [place] [address] PCP - General Family Medicine 06/07/18 documented as of this encounter
--- OUTSIDE RECORDS SUMMARY | 2023-07-31 20:14 | External Medical Summary | Continuity of Care Document ---
Author Name Unknown Organization [place] [id number] Address [address] [place] [id number] Care Team Providers Care Audio Technician Name Role Phone Jaems Maria Primary Care Physician [phone] Encounter [facility] ZAIDYANIR [id number] Date(s): 05/28/22 - 05/28/22 [place] [id number] Medicine [address] [place] [address] Encounter Diagnosis Puncture wound of foot, right(Discharge Diagnosis) - 05/28/22 Discharge Disposition: Home or Self Care Attending Physician: MD Alayna, Jeremiah Lau Allergies, Adverse Reactions, Alerts Substance Reaction Severity Status hydrochlorothiazide-triamterene swelling Active Assessment and Plan Extracted from: Title:Clinical Document Author:GLORIA Vora, Wiilan Meneses Date:05/26/22 ORTHOPAEDICS OUTPATIENT NOTE Name: KATHARINE VANN Patient Number: [id number] : 1945 Date of Service: 05/26/2022 HPI: Patient did not show for scheduled appointment today, she will be called to be rescheduled with me or Dr. Catalan. Medications atorvastatin 40 mg oral tablet Start: 05/19/22 13:36:00 EDT Start Date: 05/19/22 Status: Ordered cephalexin Start: 05/19/22 13:35:00 EDT Start Date: 05/19/22 Status: Ordered Eliquis [...] 13:34:00 EDT Start Date: 05/19/22 Status: Ordered Problem List Condition Effective Dates Status Health Status Inform ant Puncture wound of foot, right(Confirmed) Active Diagnosis Diagnosis Type Effective Dates Health Status Cl inical Service Informant Puncture wound of foot, right Discharge Diagnosis 05/28/22 Social History Social History Type Response Smoking Status Never smoked cigaret live Sex Male Care Team Personnel Name: DO Maria Trevor S Address: [address] [place] [address] [place] [address]
--- OUTSIDE RECORDS SUMMARY | 2023-07-31 20:14 | External Medical Summary | Summary of Care ---
Author Name Unknown Organization [place] [address] Care Team Providers Care Media Reconciliation Specialist Name Role Phone James Maria Primary Care Provider Reason for Visit * Reason Onset Date Comments Information 06/04/2022 Encounter Details Date Type Department Care Team Description 06/04/2022 Telephone [facility] [place] [address] [place] [address] Services, Scheduling [address] [place] [address] Information Allergies Active Allergy Reactions Severity Noted [...] 3 08/24/2017 Active Blood Glucose Monitoring Suppl ([employer]) w/Device KITIndications:Type 2 diabetes mellitus with hemoglobin A1c goal of 7.0%-8.0% ([facility]) Use as directed. Recommend check glucose levels [...] less than 8.0% ([facility]) Use up to 4 x a day [...] times daily 2 Each 11 12/27/2021 Active [employer] Rose Marie 2 [place] Device Test blood sugars four times daily 1 Each 0 12/27/2021 Active Lantus SoloStar 100 UNIT/ML Subcutaneous Solution Pen-injector (Insulin Glargine)Indication s:Type 2 diabetes mellitus with hemoglobin A1c goal of less than 8.0% (HCC) Inject under the skin 15 Units before bedtime. 15 mL 3 01/06/2022 Active Additional Information Patient taking differently: 20 Units Subcutaneous QHS, Reported on 03/18/2022 Pen [place] 32G X 4 MMIndications:Type 2 diabetes mellitus [...] with fat layer exposed 01/09/2022 Atherosclerosis of [place] coronary arter y without angina pectoris 01/09/2022 [...] HH for SN and PT [facility]. Found [facility] listed onreferral so contacted them and faxed info to Sheila's attn and am waiting her return cb Sheila cb and asked for needs and I read through latest encounter for just PT and then refaxed her snapshot and demo and order and reached out to JACQUE Logan for more info to share and cb Sheila at [phone] when I get it To move ahead documented in this encounter Plan of Treatment Upcoming Encounters Date Type Specialty Care Team Description 06/05/2022 Office Visit Family Medicine James Maria DO 132 [place] [address] 06/10/2022 Home Visit Family Medicine Sara Recinos, [facility] Recreation Establishment Manager [address] [place] [address] 06/18/2022 Office Visit [facility] [address] 06/18/2022 Office Visit [facility] Erica [address] [place] [address] 06/27/2022 Home Visit [facility] Rica Taylor, DANTE [address] [place] [address] 08/07/2022 Office Visit Dermatology Suha Duran MD [address] [place] [address] 09/03/2022 Office Visit Cardiology Del Díaz Jr., DO 132 [facility] [place] [address] Scheduled Procedures Name Priority Associated Diagnoses Date/Ti [...] Documents on File Type Date Recorded Patient Principal Cyber Engineer Expl 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 Directive Advanced Directive Advanced Directive Care Teams Media Reconciliation Specialist Relationship Specialty Start Date End Date James Maria DO 132 [place] [address] PCP - General Family Medicine 06/07/18 documented as of this encounter
--- OUTSIDE RECORDS SUMMARY | 2023-07-31 20:14 | External Medical Summary | Summary of Care ---
Author Name Unknown Organization [place] [address] Care Team Providers Care Analysis Analyst Name Role Phone James Maria Primary Care Provider Reason for Referral * Evaluate & Treat - Unlimited Visits (Within 10 days (routine)) - Authorized Specialty Diagnoses / Procedures Referred By Collin leigh Referred To Contact Physical Therapy / Physical Medicine And Rehab Diagnoses Unsteady gait when walking Jenny Logan PA-C [address] [facility] [place] [address] Referral ID Status Reason Start Date Expiration Date Visits Requested Visits Authorized [id number] Authorized Specialty Services Required 05/27/2022 999 999 Question Answer Referral Priority Within 10 days (routine) Reason for Visit * Reason Comments [facility]: Maintenance Encounter Details Date Type Department Care Team Description 05/27/2022 Telemedicine [facility], [facility] [address] [facility] [place] [address] Wendy Cisneros CRNP [address] [facility] [place] [address] Radha Lazaro, Community Health Stove Bottom Worker [address] [place] [address] Paroxysmal atrial fibrillation (HCC)*; HTN, goal below 130/80; Type 2 diabetes mellitus with polyneuropathy (HCC); Puncture wound of right foot, subsequent encounter; Unsteady gait when walking Allergies Active Allergy Reactions Severity Noted Date Comments Lisinopril Edema face/lips/tongue High 04/05/2018 documented as of this encounter (statuses as of 06/03/2022) Medications Medication Sig Dispensed Refills Start Date End Date Status Blood Glucose Monitoring Suppl (EventVue ULTRA SYSTEM) W/DEVICE KIT Use as directed [...] 3 08/24/2017 Active Blood Glucose Monitoring Suppl (SnipdUCH VERIO) w/Device KITIndications:Type 2 diabetes mellitus with hemoglobin A1c goal of 7.0%-8.0% ([facility]) Use as directed. Recommend check [...] 11 12/27/2021 Active FreeStyle Rose Marie 2 [place] Device Test blood sugars four times daily 1 Each 0 12/27/2021 Active Lantus SoloStar 100 UNIT/ML Subcutaneous Solution Pen-injector (Insulin Glargine)Indication s:Type 2 diabetes mellitus with hemoglobin A1c goal of less than 8.0% ([facility]) Inject under the skin 15 Units before bedtime. 15 mL 3 01/06/2022 Active Additional Information Patient taking differently: 20 Units Subcutaneous QHS, Reported on 03/18/2022 Pen [place] 32G X 4 MMIndications:Type 2 diabetes mellitus [...] with fat layer exposed 01/09/2022 Atherosclerosis of [place] coronary arter y without angina pectoris [...] Progress Notes * Radha Lazaro, Community Health Stove Bottom Worker - 05/27/2022 12:30 PM EDT Community Health Stove Bottom Worker Visit Date: 05/27/2022 Time: 12:46 PM Name: Selvin Sebastian : 1945 Referral Source: manager library Source of Information: Patient and Spoken language: Mosotho NOTE: Very hard of hearing Patient can read in Mosotho: Yes. Recreation Teacher needed: No. May need to use written [...] Patients home was recently taken by this [facility]. per it was not livable. Patient is [...] conducted with: Physician/AP Symptoms Surveys and Evaluations: [facility] completed this visit: No. Last flowsheet values for [facility]: Age 65+: 1 (05/21/2022 4:00 PM) Diagnosis [...] patient as needed Radha Lazaro Community [facility] Stove Bottom Worker 05/27/2022 12:46 PM Electronically signed by Radha Lazaro [facility] Stove Bottom Worker at 05/28/2022 11:29 AM EDT * Jenny Logan PA-C - 05/26/2022 9:36 PM EDT Images from the original note were not included. [facility] Problem Oriented Charting Provider Visit Date: 05/26/2022 Time: 9:36 PM [facility] Cohort: Focused Care Management (3-9 [...] Dept Phone 05/27/2022 12:30 PM Radha Lazaro [facility] Stove Bottom Worker; [facility] [phone] 06/03/2022 10:00 AM Radha Lazaro [facility] Stove Bottom Worker; [facility] [phone] 06/05/2022 2:40 PM (Arrive by 2:25 PM) James Maria DO Family Medicine [phone] 06/10/2022 12:00 PM Sara Recinos [facility] Stove Bottom Worker Family Medicine [phone] 06/18/2022 1:00 PM (Arrive by 12:45 PM) Kylie Burroughs DPM Podiatry [phone] 06/18/2022 2:30 PM [facility] [phone] 06/27/2022 2:30 PM Rica Taylor RN [facility] [phone] 08/07/2022 1:00 PM (Arrive by 12:45 PM) Suha Duran MD Dermatology [phone] 09/03/2022 3:00 PM (Arrive by 2:45 PM) Del Díaz Jr., DO Cardiology [phone] A total of 35 minutes was spent face to face (via video-based telemedicine if designated as a telemedicine visit) Subjective Subjective Is this a Telemedicine Visit? Yes, Patient location: HOME. I was not in a hospital or clinic location. After connecting through televideo, patient was verified with two unique identifiers. Patient (or authorized legal inside outside sales representative) was then informed that this was a Telemedicine visit and being conducted confidentially over secure lines. Methods to assure confidentiality were taken. Patient acknowledged consent and understanding of privacy and security of the Telemedicine visit. The patient agreed to participate. Reason For [facility] Visit: Follow-Up Current Concerns: Selvin [...] sent to PCP (via [facility]ax if [facility]), [facility]/Population Health Care Team members,relevant Specialty [...] Specialty Care Team Description 06/04/2022 Home Visit [facility] Jenny Logan PA-C 132 [place] [address] 06/05/2022 Office Visit Family Medicine James [facility] [address] 06/10/2022 Home Visit Family Medicine Sara Recinos, Community Health Stove Bottom Worker [address] [place] [address] 06/18/2022 Office Visit Podiatry Kylie Burroughs, DPM [address] [place] [address] [address] 06/18/2022 Office Visit Pharmacy [facility] Erica 132 [facility] [place] [address] 06/27/2022 Home Visit [facility] Rica Taylor, RN [address] [facility] [place] [address] 08/07/2022 Office Visit Dermatology Suha Duran MD [address] [place] [address] 09/03/2022 Office Visit Cardiology Del Díaz Jr., DO 132 [facility] [place] [address] Scheduled Procedures Name Priority Associated Diagnoses Date/Ti [...] Documents on File Type Date Recorded Patient All Around Presser Expl anation Advanced Directive service a hi [...] Directive Advanced Directive Advanced Directive Care Teams Analysis Analyst Relationship Specialty Start Date End Date James Maria DO [address] [facility] [place] [address] PCP - General Family Medicine 06/07/18 documented as of this encounter
--- OUTSIDE RECORDS SUMMARY | 2023-07-31 20:14 | External Medical Summary | Summary of Care ---
Author Name Unknown Organization [place] [address] Care Team Providers Care Dredge Mechanic Name Role Phone James Maria Primary Care Provider Encounter Details Date Type Department Care Team Description 05/27/2022 Telephone Care Coordination [address] [place] [address] Radha Lazaro, Community Health Coal Cutting Machine Operator [address] [place] [address] Allergies Active Allergy Reactions Severity Noted Date Comments Lisinopril Edema face/lips/tongue High 04/05/2018 documented as of this encounter (statuses as of 05/27/2022) Medications Medication Sig Dispensed Refills Start Date [...] 3 08/24/2017 Active Blood Glucose Monitoring Suppl ([employer]) w/Device KITIndications:Type 2 diabetes mellitus with hemoglobin A1c goal of 7.0%-8.0% ([facility]) Use as directed. Recommend check glucose levels [...] than 8.0% ([facility]) Use up to 4 x a day [...] times daily 2 Each 11 12/27/2021 Active KinetaStPanizon Rose Marie 2 [place] Device Test blood sugars four times daily 1 Each 0 12/27/2021 Active Lantus SoloStar 100 UNIT/ML Subcutaneous Solution Pen-injector (Insulin Glargine)Indication s:Type 2 diabetes mellitus with hemoglobin A1c goal of less than 8.0% (HCC) Inject under the skin 15 Units before bedtime. 15 mL 3 01/06/2022 Active Additional Information Patient taking differently: 20 Units Subcutaneous QHS, Reported on 03/18/2022 Pen [place] 32G X 4 MMIndications:Type 2 diabetes [...] as of this encounter (statuses as of 05/27/2022) Active Problems Problem Noted Date Unsteady gait [...] with fat layer exposed 01/09/2022 Atherosclerosis of [place] coronary arter y without angina pectoris 01/09/2022 [...] as of this encounter (statuses as of 05/27/2022) Resolved Problems Problem Noted Date Resolved Date [...] as of this encounter (statuses as of 05/27/2022) Immunizations Name Administration Dates Next Due COVID-19 [...] Telephone Encounter - Jenny Logan PA-C - 05/27/2022 5:20 PM EDT Please fax PT/OT referral. Please also cancel [facility] provider visit on 06/03. Thank you documented in this encounter Plan of Treatment Upcoming Encounters Date Type Specialty Care Team Description 06/03/2022 Telemedicine [facility] Wendy Cisneros CRNP 132 [facility] [place] [address] Radha Lazaro, Community Health Coal Cutting Machine Operator [address] [place] [address] 06/05/2022 Office Visit Family Medicine James Maria DO 132 [facility] [place] [address] 06/10/2022 Home Visit Family Medicine Sara Recinos, Community Health Coal Cutting Machine Operator [address] [place] [address] 06/18/2022 Office Visit Podiatry Kylie Burroughs DPM [address] [place] [address] [place] [address] 06/18/2022 Office Visit Pharmacy [facility] Erica [address] [facility] [place] [address] 06/27/2022 Home Visit [facility] Rica Taylor, RN 132 [facility] [place] [address] 08/07/2022 Office Visit Dermatology Suha Duran MD [address] [place] [address] 09/03/2022 Office Visit Cardiology Del Díaz Jr., DO 132 [facility] [place] [address] Scheduled Procedures Name Priority Associated Diagnoses Date/Ti [...] Documents on File Type Date Recorded Patient Building Supervisor Expl 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 Directive Advanced Directive Advanced Directive Care Teams Dredge Mechanic Relationship Specialty Start Date End Date James Maria DO 132 [facility] [place] [id number] PCP - General Family Medicine 06/07/18 documented as of this encounter
--- OUTSIDE RECORDS SUMMARY | 2023-07-31 20:14 | External Medical Summary | Summary of Care ---
Author Name Unknown Organization [place] [address] Care Team Providers Care Chief Engineer Name Role Phone James Maria Primary Care Provider Reason for Visit * Reason Onset Date Comments [facility]: Maintenance 06/04/2022 Encounter Details Date Type Department Care Team Description 06/04/2022 Telephone [facility], [facility] 132 [facility] [place] [address] [facility], Nurse [facility] 132 [place] [address] [facility]: Maintenance Allergies Active Allergy [...] 5 Tab 6 08/24/2017 Active Glucose Blood (Azure SolutionsTOUCH VERIO) STRP Use up to 4 times a day E11.9 300 Strip 3 08/24/2017 Active Blood Glucose Monitoring Suppl (Azure SolutionsTOSyntensia VERIO) w/Device KITIndications:Type 2 diabetes mellitus with [...] 11 12/27/2021 Active FreeStyle Rose Marie 2 [place] Device Test blood sugars four times daily 1 Each 0 12/27/2021 Active Lantus SoloStar 100 UNIT/ML Subcutaneous Solution Pen-injector (Insulin Glargine)Indication s:Type 2 diabetes mellitus with hemoglobin A1c goal of less than 8.0% (HCC) Inject under the skin 15 Units before bedtime. 15 mL 3 01/06/2022 Active Additional Information Patient taking differently: 20 Units Subcutaneous QHS, Reported on 03/18/2022 Pen [place] 32G X 4 MMIndications:Type 2 diabetes mellitus [...] with fat layer exposed 01/09/2022 Atherosclerosis of [place] coronary arter y without angina pectoris 01/09/2022 [...] EDT PC from jose daniel Mackenzie from [facility] stating they can NOT accept patient Message routed to care teams Sherie Larson RN, BSN [facility] outside sales professionalVoice Writing Reporter documented in this encounter Plan of Treatment Upcoming Encounters Date Type Specialty Care Team Description 06/05/2022 Office Visit Family Medicine James Maria DO 132 [place] [address] 06/10/2022 Home Visit Family Medicine Sara Recinos, Community Health Graphic Pre Press Trades Worker [address] [place] [address] 06/18/2022 Office Visit Podiatry Kylie Burroughs DPM [address] [place] [address] 06/18/2022 Office Visit Pharmacy [facility] Erica [address] [place] [address] 06/27/2022 Home Visit [facility] Rcia Taylor, RN 132 [facility] [place] [address] 08/07/2022 Office Visit Dermatology Suha Duran MD [address] [place] [address] 09/03/2022 Office Visit Cardiology Del Díaz Jr., DO [address] [place] [address] Scheduled Procedures Name Priority Associated Diagnoses Date/Ti [...] Documents on File Type Date Recorded Patient Payroll Tax Specialist Expl anation Advanced Directive service a hi [...] Directive Advanced Directive Advanced Directive Care Teams Chief Engineer Relationship Specialty Start Date End Date James Maria DO [address] [place] [address] PCP - General Family Medicine 06/07/18 documented as of this encounter
--- OUTSIDE RECORDS SUMMARY | 2023-07-31 20:14 | External Medical Summary | Summary of Care ---
Author Name Unknown Organization [place] [address] Care Team Providers Care Window Glazier Helper Name Role Phone James Maria Primary Care Provider Reason for Visit * Reason Onset Date Comments Information 06/04/2022 Encounter Details Date Type Department Care Team Description 06/04/2022 Telephone [facility] [place], [place] [address] [place] [address] Services, Scheduling [address] [place] [address] Information Allergies Active Allergy Reactions Severity Noted [...] 3 08/24/2017 Active Blood Glucose Monitoring Suppl ([employer]) w/Device KITIndications:Type 2 diabetes mellitus with hemoglobin A1c goal of 7.0%-8.0% ([facility]) Use as directed. Recommend check [...] of less than 8.0% ([facility]) Use up to 4 x [...] times daily 2 Each 11 12/27/2021 Active Mobile CaptainStPitchPoint Solutions Rose Marie 2 [place] Device Test blood sugars four times daily 1 Each 0 12/27/2021 Active Lantus SoloStar 100 UNIT/ML Subcutaneous Solution Pen-injector (Insulin Glargine)Indication s:Type 2 diabetes mellitus with hemoglobin A1c goal of less than 8.0% (HCC) Inject under the skin 15 Units before bedtime. 15 mL 3 01/06/2022 Active Additional Information Patient taking differently: 20 Units Subcutaneous QHS, Reported on 03/18/2022 Pen [place] 32G X 4 MMIndications:Type 2 diabetes mellitus [...] with fat layer exposed 01/09/2022 Atherosclerosis of [place] coronary arter y without angina pectoris 01/09/2022 [...] HH for SN and PT [facility]. [facility] onreferral so contacted them and faxed info to Sheila's attn and am waiting her return cb documented in this encounter Plan of Treatment Upcoming Encounters Date Type Specialty Care Team Description 06/05/2022 Office Visit Family Medicine James Maria DO 132 [place] [address] 06/10/2022 Home Visit Family Medicine Sara Recinos, Community Health Skate Maker [address] [place] [address] 06/18/2022 Office Visit Podiatry Kylie Burroughs, REMEDIOS [address] [place] [address] 06/18/2022 Office Visit Pharmacy [facility] Erica 132 [place] [address] 06/27/2022 Home Visit [facility] [place] Rica Taylor, RN 132 [place] [address] 08/07/2022 Office Visit Dermatology Suha Duran MD [address] [place] [address] 09/03/2022 Office Visit Cardiology Arjun Nielsen, [place], [address] [place] [address] Scheduled Procedures Name Priority Associated Diagnoses Date/Ti [...] Documents on File Type Date Recorded Patient Spinning Mule Tender Expl 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 Directive Advanced Directive Advanced Directive Care Teams Window Glazier Helper Relationship Specialty Start Date End Date James Maria DO 132 [place] [address] PCP - General Family Medicine 06/07/18 documented as of this encounter
--- OUTSIDE RECORDS SUMMARY | 2023-07-31 20:15 | External Medical Summary | Summary of Care ---
Author Name Unknown Organization [place] [address] Care Team Providers Care Him Analyst Name Role Phone James Maria Primary Care Provider Reason for Visit * Reason Onset Date Comments [facility]: Maintenance 05/20/2022 Encounter Details Date Type Department Care Team Description 05/20/2022 Telephone [facility] 132 [facility] [place] [address] [facility], Nurse [facility] 132 [place] [address] [facility]: Maintenance Allergies Active Allergy Reactions Severity Noted Date Comments Lisinopril Edema face/lips/tongue High 04/05/2018 documented as of this encounter (statuses as of 05/20/2022) Medications Medication Sig Dispensed Refills Start Date [...] 5 Tab 6 08/24/2017 Active Glucose Blood (MiTioTOUCH VERIO) STRP Use up to 4 times a day E11.9 300 Strip 3 08/24/2017 Active Blood Glucose Monitoring Suppl (MiTioTOActivation Life VERIO) w/Device KITIndications:Type 2 diabetes mellitus with [...] 11 12/27/2021 Active FreeStyle Rose Marie 2 [place] Device Test blood sugars four times daily 1 Each 0 12/27/2021 Active Lantus SoloStar 100 UNIT/ML Subcutaneous Solution Pen-injector (Insulin Glargine)Indication s:Type 2 diabetes mellitus with hemoglobin A1c goal of less than 8.0% ([facility]) Inject under the skin 15 Units before bedtime. 15 mL 3 01/06/2022 Active Additional Information Patient taking differently: 20 Units Subcutaneous QHS, Reported on 03/18/2022 Pen [place] 32G X 4 MMIndications:Type 2 diabetes mellitus [...] as of this encounter (statuses as of 05/20/2022) Active Problems Problem Noted Date Blistering of skin 04/25/2022 Last Assessment & Plan: Pt denies burning hands or smoking. He is not picking blisters, no rash on other parts of body, No pain or s/s infection. Covering fingers. Not on palms--not itchy. Will send derm ask a doc for advice. Cellulitis of right lower extremity 04/03 Last Assessment & Plan: Concern for early cellulitis. See photos with erythema R lower leg. Will start cephalexin. Advised to call with worsening symptoms. Will plan nurse or [facility] provider telemedicine recheck visit one week to assess healing. 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 Dyslipidemia 10/15/2009 Overview: Per Lipid Taxonomy. Type [...] as of this encounter (statuses as of 05/20/2022) Resolved Problems Problem Noted Date Resolved Date Mixed obsessional thoughts and acts 11/21/2019 01/09/2022 [...] as of this encounter (statuses as of 05/20/2022) Immunizations Name Administration Dates Next Due COVID-19 [...] encounter Miscellaneous Notes * Telephone Encounter - Tawana Williamson LPN - 05/20/2022 10:31 AM EDT Patient admitted to [facility] 05/16-05/19 for cellulitis Discharged to home No RRS Risk Adm/ED 15% TT sent to [facility] corporation officer to schedule TOCs documented in this encounter Plan of Treatment Upcoming Encounters Date Type Specialty Care Team Description 06/04/2022 Office Visit Podiatry Kylie Burroughs, REMEDIOS [address] [place] [address] 06/05/2022 Office Visit Family Medicine James Maria, DO 132 [facility] [place] [address] 06/18/2022 Office Visit Pharmacy [facility]a [facility] [place] [address] 08/07/2022 Office Visit Dermatology Suha Duran MD [address] [place] [address] 09/03/2022 Office Visit Cardiology Del Díaz Jr., 132 [facility] [place] [address] Scheduled Procedures Name Priority Associated Diagnoses Date/Ti me COLONOSCOPY FLEXIBLE PROXIMA L DIAGNOSTIC Recall Encounter for screening colonoscopy Health Maintenance Due Date Last Done Comments Yearly B-12 11/16/2020 11/16/2019, 01/11/2018 Depression Screening, Annual for Pts 12 and Over 11/21/2020 11/21/2019 DIABETES-URINE ALBUMIN/CREATININE EVERY 12 MONTHS 03/13/2021 03/13/2020, 12/13/2018, 01/11/2018, Additional history exists DIABETES-HGBA1C EVERY 6 MONTHS 08/29/2021 02/27/2021, 03/13/2020, 11/16/2019, Additional history exists DTaP,Tdap,and Td Vaccines (2 - Td or Tdap) 10/21/2021 10/21/2011, 11/09/2003 DIABETES-FOOT EXAM 02/28/2022 02/28/2021, 1 12/14/2018, 06/07/2018, Additional history exists DIABETES-EYE EXAM 03/04/2022 03/04/2021, , 06/30/2016, Additional history exists COVID-19 Vaccine (4 - Booster for Moderna series) 06/27/2022 02/25/2022, 03/24/2021, 02/22/2021 Influenza Vaccine (FLU shot) (#1) 2022 08/10/2021, 08/03/2020, 08/22/2019, Additional history exists GFR - Renal Function 11/08/2022 11/08/2021, 02/27/2021, 06/01/2020, Additional history exists Pneumococcal Vaccine: 65+ Years [...] Documents on File Type Date Recorded Patient Rural Route Carrier Expl anation Advanced Directive service a ih default Advanced Directive Advanced Directive Advanced Directive [...] Directive Advanced Directive Advanced Directive Care Teams Him Analyst Relationship Specialty Start Date End Date James Maria DO [address] [place] [id number] PCP - General Family Medicine 06/07/18 documented as of this encounter
--- OUTSIDE RECORDS SUMMARY | 2023-07-31 20:15 | External Medical Summary | Summary of Care ---
Author Name Unknown Organization [place] [address] Care Team Providers Care Ceiling Insulation Blower Name Role Phone James Maria Primary Care Provider Reason for Visit * Reason Comments [facility]: Maintenance Encounter Details Date Type Department Care Team Description 05/21/2022 Home Visit [facility], [facility] [address] [facility] [place] [address] Rica Taylor, RN 132 [facility] [place] [address] Allergies Active Allergy Reactions Severity Noted Date Comments Lisinopril Edema face/lips/tongue High 04/05/2018 documented as of this encounter (statuses as of 05/21/2022) Medications Medication Sig Dispensed Refills Start Date [...] 5 Tab 6 08/24/2017 Active Glucose Blood (MoodMeTOUCH VERLevlr) STRP Use up to 4 times a day E11.9 300 Strip 3 08/24/2017 Active Blood Glucose Monitoring Suppl (Bigcommerce) w/Device KITIndications:Type 2 diabetes mellitus with hemoglobin [...] g 1 04/17/2021 Active Additional Information Patient not taking. Reported on 05/21/2022 Fluorouracil 5 % External Cream (Efudex) Apply [...] 11 12/27/2021 Active FreeStyle Rose Marie 2 [place]win Device Test blood sugars four times daily 1 Each 0 12/27/2021 Active Lantus SoloStar 100 UNIT/ML Subcutaneous Solution Pen-injector (Insulin Glargine)Indication s:Type 2 diabetes mellitus with hemoglobin A1c goal of less than 8.0% (HCC) Inject under the skin 15 Units before bedtime. 15 mL 3 01/06/2022 Active Additional Information Patient taking differently: 20 Units Subcutaneous QHS, Reported on 03/18/2022 Pen [place] 32G X 4 MMIndications:Type 2 diabetes mellitus [...] EVERY MORNING 100 Capsule 2 04/11/2022 Active metroNIDAZOLE 500 MG Oral Tablet (Flagyl) Take by mouth 500 mg in the morning AND 500 mg at noon AND 500 mg before bedtime. 0 05/19/2022 2 Active Cephalexin 500 MG Oral Capsule (Keflex) Take by mouth 500 mg in the morning AND 500 mg at noon AND 500 mg before bedtime. 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 pectoris 01/09/2022 [...] Last Assessment & Plan: Uncontrolled--being followed by [facility] --lantus 15 units daily --novolog 5 units TID wit meals --metformin 1000mg BID Mixed conductive and sensori neural hearing loss of right ear with restricted hearing of left ear Overview: right documented as of this encounter (statuses as of 05/21/2022) Resolved Problems Problem Noted Date Resolved Date [...] as of this encounter (statuses as of 05/21/2022) Immunizations Name Administration Dates Next Due COVID-19 [...] Sign Reading Time Taken Comments Blood Pressure 110/60 05/21/2022 3:26 PM EDT Pulse 60 05/21/2022 3:26 PM EDT Temperature 35.9 C (96.6 F) 05/21/2022 3:26 PM ED T Respiratory Rate 18 05/21/2022 3:26 PM EDT Oxygen Saturation 94% 05/21/2022 3:26 PM EDT Inhaled Oxygen Concentration - - Weight - - Height - - Body Mass Index - - documented in this encounter Progress Notes * Rica Taylor RN - 05/21/2022 1:18 PM EDT Images from the original note were not included. [facility] Pellet Machine Operator KINZA #1 Visit Date: 05/21/2022 Time: 1:18 PM Name: Selvin Sebastian : 1945 Current Concerns: Pt seen for KINZA #1 Admitted to [facility] 05/16 - 05/18/22 for right foot puncture wound with cellulitis - had stepped on a screw unknowingly two weeks prior - he found it the evening he had done it from seeing blood on his sock and a screw lodged into the sole of his shoe He was started on Doxy at home after finding wound and also ordered Tdap outpatient Discharge Dx: RLE Cellulitis, hypokalemia (3.1), DM, Afib, Dyslipidemia, HTN, BPH Discharged home on Keflex 500mg TID and Metronidazole 500mg PO TID, both for one week Pt continues to live with sister - he goes to his 's apartment at times to visit - does have home in [place] but reports they cannot live there d/t his hoarding tendencies. reports that pt is going to lose his home soon is helping pt with dressing changes to right plantar foot HgbA1C, CMP, CBCD drawn from left AC and transported to [facility] lab - pt tolerated well Pt reports minimal pain "once in a while" from right foot wound Daily wound care of cleanse with NSS, apply xeroform and dsd, apply marysol wrap - or dtr does wound care Wound measure 0.7cm x 0.7cm x 0.4cm - no drainage noted on old dressing Has next appt with Dr. Catalan ([facility] ortho) in one week - reports he has been managing the wound Will have HH ordered for SN for wd management and PT - pt is having balance issues, unsteady Blood sugars as follows: 05/21-3:39pm - 121 05/21 3:23 pm - 72 05/21 2:45pm - 59 05/21 2:13pm - 70 05/21 9:29am - 117 05/21 3:21am - 69 05/20-5:36pm - 256 Prior to those reading were ranging 127 - 249 since home from hospital Physical Exam: BP 110/60 | Pulse 60 | Temp 35.9 C (96.6 F) | Resp 18 | SpO2 94% Pain 0 Physical Exam Constitutional: General: He is not in acute distress. HENT: Nose: Nose normal. Cardiovascular: Rate and Rhythm: Normal rate and regular rhythm. Pulses: Normal pulses. Heart sounds: Normal heart sounds. Pulmonary: Effort: Pulmonary effort is normal. Breath sounds: Normal breath sounds. Musculoskeletal: Right lower leg: Edema present. Left lower leg: Edema present. Skin: General: Skin is warm and dry. Neurological: Mental Status: He is alert and oriented to person, place, and time. Problems/Symptoms: Review of Systems Constitutional: Negative. HENT: Positive for hearing loss (very [place]). Eyes: Negative. Cardiovascular: Positive for leg swelling. Gastrointestinal: Negative. Genitourinary: Negative. Musculoskeletal: Positive for arthralgias and gait problem. Skin: Positive for wound (right plantar foot). Hematological: Bruises/bleeds easily. Psychiatric/Behavioral: Negative. Medication Reconciliation: (See medication list) Does patient take medications as ordered: Yes Patient Well Being: PHQ2/9: Myc Visit Accident Related Question Question 05/20/2022 2:00 PM EDT - Filed by Patient Is this visit related to an accident? (i.e work, motor vehicle) No No change in living situation Continues to live with sister [facility] Completed this Visit: Yes. [facility]: Reason Completed: Status post ED visit/hospital admission [facility] Interventions: Fall education provided, reviewed/provided Fall brochure Referral: PT: Recommend appropriate ambulation assistive device Advanced Care Planning: No documentation, ACP update last month - no change at this time. Patient's Goals of Care: 1. Hear better 2. Wound healing 3. Stay out of hospital Reinforcement/Education: DIABETES: -Blood sugar testing schedule: Twice a day, once in the morning and again 2 hours after a meal. -Blood sugar goals: Less than 120, fasting and less than 180, 2 hours after a meal -Record and take to PCP appointments -Notify your doctor if your blood sugar is consistently above goal -Hypoglycemia (low blood sugar) action plan: If blood sugar is less than 70 or having symptoms of low blood sugar eat or drink a snack of 15gm of carbohydrate (2-3 glucose tablets, glass juice, 1Cnon-fat milk, etc) wait 15 min if blood sugar still low repeat snack, wait 15 minutes if still low call health care provider. Ask provider if a medication adjustment is needed if experiencing low blood sugars frequently, twice a week or more. -Hyperglycemia (high blood sugar) action Plan: Take medications as directed, test blood sugars frequently, if above goal, contact your health care provider. Ask for changes to medication if blood sugars continue to run above goal. -Eat three well balanced meals a day 5 servings fruit/vegetable per day Educated on home safety: Create a fall [...] exercises that will be right for you. Reinforced safety education and fall prevention. and Reinforced medication regimen. Timing., Dosing. and Purspose. Treatment/Plan: Continue meds as prescribed, reviewed Freestyle rose marie for bsg monitoring 4x a day Use fingerstick if Freestyle not working/falls off Wound care daily to right plantar foot Home Health referral for wound management and PT Pt severely [place] - use white board for communication Labs drawn and taken to [facility] Interventions Provided: Labs/Specimen Collection Performed HgbA1c, CBCD, CMP Home Intervention: Wound Care and Other; Eval Consulted PCP/Specialist Reinforced current Plan of Care, including self-management and medication regimen Patient's 'Red Flags': 1. Increased edema 2. Redness or foul drainage from wounds 3. Consistent bsg less than 70 or over 300 Patient Needs to Remember: Call [facility] at with any new or worsening health concerns or problems, red flag symptoms. Referrals Needed: Home Health Nursing and PT Follow Up: Is there cellular connectivity/connectivity in the home? Yes Does the patient have internet in the home? No Patient encouraged to call the intake phone number for all urgent but not emergent issues. Is the patient new to [facility] within the last 30 days? No, Assess appropriateness for upcoming telehealth visits. Cancel telehealth visits & schedule home visit with care seafood team member(s)as indicated. Provider is in agreement with Plan of Care: Yes Scheduled to follow up with patient per KINZA schedule. Rica Taylor RN 05/21/2022 1:18 PM documented in this encounter Plan of Treatment Upcoming Encounters Date Type Specialty Care Team Description 05/23/2022 Office Visit Family Medicine Sujit Yañez MD [address] [place] [address] 05/27/2022 Telemedicine [facility] Wendy Cisneros CRNP [address] [place] [address] Radha Lazaro, Community Health Safety Compliance Specialist [facility] [place] [address] 06/03/2022 Telemedicine [facility] Wendy Cisneros CRNP [address] [place] [address] Radha Lazaro, Community Health Safety Compliance Specialist [address] [place] [address] 06/05/2022 Office Visit Family Medicine James Maria DO [address] [place] [address] 06/10/2022 Home Visit Family Medicine Sara Recinos, Community Health Safety Compliance Specialist [address] [place] [address] 06/18/2022 Office Visit Podiatry Kylie Burroughs, [address] [address] 06/18/2022 Office Visit Pharmacy [facility] Erica [address] [place] [address] 08/07/2022 Office Visit Dermatology Suha uDran MD [address] [place], [place] [id number] 09/03/2022 Office Visit Cardiology Del Díaz Jr., DO [address] [place] [address] Scheduled Procedures Name Priority Associated Diagnoses Date/Ti [...] Documents on File Type Date Recorded 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
--- OUTSIDE RECORDS SUMMARY | 2023-07-31 20:15 | External Medical Summary ---
Author Name Unknown Address Unknown Organization [id number]:[facility] - [address] [place] [address] Laboratory Report Ordering Provider Test Date Status BRIDGER WARD 05/21/2022 16:49:47 Final Observation Date Value Abnormality Reference (Units ) Status BUN 05/21/2022 16:49:47 13 6-20 (mg/dL) Final Creatinine 05/21/2022 16:49:47 1.0 0.6-1.2 (mg/dL) Final Glomerular filtration rate/1.73 sq M.predicted [Volume Rate/Area] in Serum, Plasma or Blood by Creatinine-based formula (CKD-EPI) 05/21/2022 16:49:47 81 >=60 (mL/min) Final Performing Location [facility] - [address] [place] [address]
--- OUTSIDE RECORDS SUMMARY | 2023-07-31 20:15 | External Medical Summary ---
Author Name Unknown Address Unknown Organization [id number]:[facility]ATORY [facility] [place] - [address] [facility] [address] Laboratory Report Ordering Provider Test Date Status BRIDGER WARD 05/21/2022 16:49:48 Final Observation Date Value Abnormality Reference (Units ) Status WBC, Total 05/21/2022 16:49:48 11.24 Above high normal 4.00-10.80 (K/uL) Final RBC 05/21/2022 16:49:48 4.08 4.50-5.25 (M/uL) Final Hemoglobin 05/21/2022 16:49:48 12.3 Below low normal 14.0-16.8 (g/dL) Final HCT 05/21/2022 16:49:48 37.3 Below low normal 40.0-48.4 (%) Final MCV 05/21/2022 16:49:48 91.4 82.0-99.5 (fL) Final MCH 05/21/2022 16:49:48 30.1 27.0-34.0 (pg) Final MCHC 05/21/2022 16:49:48 33.0 32.0-36.0 (g/dL) Final RDW 05/21/2022 16:49:48 12.7 11.5-15.5 (%) Final MPV 05/21/2022 16:49:48 10.5 6.6-11.1 (fL) Final Nucleated erythrocytes/100 leukocytes [Ratio] in Blood by Automated count 05/21/2022 16:49:48 0 <=0 (/100 WBCs) Final Platelets 05/21/2022 16:49:48 343 140-400 (K/uL) Final Performing Location [facility]ORY [facility] - [address] [place] [address]
--- OUTSIDE RECORDS SUMMARY | 2023-07-31 20:15 | External Medical Summary | Summary of Care ---
Author Name Unknown Organization [place] [address] Care Team Providers Care Executive Pilot Name Role Phone Yariel Mariavor Sophy Primary Care Provider Reason for Visit * Reason Onset Date Comments Appointment 05/22/2022 Encounter Details Date Type Department Care Team Description 05/22/2022 Telephone [facility], [facility] [address] [facility] [place] [address] Services, Scheduling [address] [place] [address] Appointment Allergies Active Allergy Reactions Severity Noted Date Comments Lisinopril Edema face/lips/tongue High 04/05/2018 documented as of this encounter (statuses as of 05/22/2022) Medications Medication Sig Dispensed Refills Start Date [...] 3 08/24/2017 Active Blood Glucose Monitoring Suppl (ThermoCeramix) w/Device KITIndications:Type 2 diabetes mellitus with hemoglobin [...] 11 12/27/2021 Active FreeStyle Rose Marie 2 Tobias Device Test blood sugars four times daily 1 Each 0 12/27/2021 Active Lantus SoloStar 100 UNIT/ML Subcutaneous Solution Pen-injector (Insulin Glargine)Indication s:Type 2 diabetes mellitus with hemoglobin A1c goal of less than 8.0% (HCC) Inject under the skin 15 Units before bedtime. 15 mL 3 01/06/2022 Active Additional Information Patient taking differently: 20 Units Subcutaneous QHS, Reported on 03/18/2022 Pen [place] 32G X 4 MMIndications:Type 2 diabetes mellitus [...] as of this encounter (statuses as of 05/22/2022) Active Problems Problem Noted Date Overweight (BMI 25.0-29.9) 05/22/2022 Hoarding behavior 03/20/2022 Paroxysmal atrial fibrillation 2 Moderate aortic stenosis 03/20/2022 Diabetic ulcer of toe of rig ht foot associated with type 2 diabetes mellitus, with fat layer exposed 01/09/2022 Atherosclerosis of [place] coronary arter y without angina pectoris 01/09/2022 [...] as of this encounter (statuses as of 05/22/2022) Resolved Problems Problem Noted Date Resolved Date [...] as of this encounter (statuses as of 05/22/2022) Immunizations Name Administration Dates Next Due COVID-19 [...] encounter Miscellaneous Notes * Telephone Encounter - Ori BrownMICHEL - 05/22/2022 8:50 AM EDT Reason for call:Patient is scheduled for [facility] visit on 06/27 2:30pm Patient Farhana took the call and was Agreeable. Farhana stated is hard at hear. documented in this encounter Plan of Treatment Upcoming Encounters Date Type Specialty Care Team Description 05/23/2022 Office Visit Family Medicine Sujit Yañez MD [address] [place] [place] [address] 05/27/2022 Telemedicine [facility] Wendy [facility]neros CRNP [address] [facility] [place] [address] Radha Lazaro, [facility] Health Fmd Teacher [address] [place] [address] 06/03/2022 Telemedicine [facility]os [facility] [address] Radha Lazaro, Community Health Fmd Teacher [address] [place] [address] 06/05/2022 Office Visit Family Medicine James Maria [facility] [address] [facility] [place] [address] 06/10/2022 Home Visit Family Medicine Sara Recinos, [facility] Health Fmd Teacher [address] [place] [address] 06/18/2022 Office Visit Podiatry Kylie Burroughs DPM [address] [place] [address] [place] [phone] 06/18/2022 Office Visit Pharmacy [facility] Erica 132 [facility] [place] [address] 06/27/2022 Home Visit [facility] Rica Taylor, RN 132 [facility] [place] [address] 08/07/2022 Office Visit Dermatology Suha Duran MD [address] [place] [address] 09/03/2022 Office Visit Cardiology Del Díaz Jr., DO 132 [facility] [place] [address] Scheduled Procedures Name Priority Associated Diagnoses Date/Ti [...] Documents on File Type Date Recorded 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
--- OUTSIDE RECORDS SUMMARY | 2023-07-31 20:15 | External Medical Summary ---
Author Name Unknown Address Unknown Organization K01:[facility] [place] [address] [place] [address] Laboratory Report Ordering Provider Test Date Status BRIDGER WARD 05/21/2022 16:49:48 Final Observation Date Value Abnormality Reference (Units ) Status HbA1C 05/21/2022 16:49:48 7.8 Above high normal 4. 0-5.6 (%) Final Performing Location LABORATORY [facility] - [address] [place] [address]
--- OUTSIDE RECORDS SUMMARY | 2023-07-31 20:15 | External Medical Summary | Summary of Care ---
Author Name Unknown Organization [place] [address] Care Team Providers Care Freight Receiver Name Role Phone James Maria DO Primary Care Provider Encounter Details Date Type Department Care Team Description 05/18/2022 Scan Encounter Family Practice [facility] [address] [place] [address] James Maria DO [address] [place] [address] <No scans attached> Allergies Active Allergy Reactions [...] 5 Tab 6 08/24/2017 Active Glucose Blood (Planet8TOUCH VERSunfun Info) STRP Use up to 4 times a day E11.9 300 Strip 3 08/24/2017 Active Blood Glucose Monitoring Suppl (Cell[employer]) w/Device KITIndications:Type 2 diabetes mellitus with hemoglobin [...] 11 12/27/2021 Active FreeStyle Rose Marie 2 [place] Device Test blood sugars four times daily 1 Each 0 12/27/2021 Active Lantus SoloStar 100 UNIT/ML Subcutaneous Solution Pen-injector (Insulin Glargine)Indication s:Type 2 diabetes mellitus with hemoglobin A1c goal of less than 8.0% (HCC) Inject under the skin 15 Units before bedtime. 15 mL 3 01/06/2022 Active Additional Information Patient taking differently: 20 Units Subcutaneous QHS, Reported on 03/18/2022 Pen [place] 32G X 4 MMIndications:Type 2 diabetes mellitus [...] Description 06/04/2022 Office Visit Podiatry Kylie Burroughs, DPMarga [address] [facility] [place] [address] 06/05/2022 Office Visit Family Medicine James Maria DO [address] [place] [address] 06/18/2022 Office Visit Pharmacy Anatoly [facility]ogel Erica [address] [place] [address] 08/07/2022 Office Visit Dermatology Suha Duran MD [address] [place] [address] 09/03/2022 Office Visit Cardiology Arjun Nielsen, Del Gann, DO [address] [place] [address] Scheduled Procedures Name Priority Associated Diagnoses Date/Ti [...] Documents on File Type Date Recorded 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
--- OUTSIDE RECORDS SUMMARY | 2023-07-31 20:15 | External Medical Summary | Summary of Care ---
Author Name Unknown Organization [place] [address] Care Team Providers Care Horticulture Worker Name Role Phone James Maria Primary Care Provider Reason for Referral * Evaluate & Treat - Unlimited Visits (Within 3 days (urgent)) - Authorized Specialty Diagnoses / Procedures Referred By Collin leigh Referred To Contact HOME CARE / Home Care Diagnoses Impaired gait and mobility Diabetic ulcer of toe of right foot associated with type 2 diabetes mellitus, with fat layer exposed (HCC) Sujit Carbera DO [address] [place] [address] Referral ID Status Reason Start Date Expiration Date Visits Requested Visits Authorized [id number] Authorized Specialty Services Required 05/21/2022 999 999 Question Answer Referral Priority Within 3 days (urgent) Comments [facility] Home - SN, PT/OT Encounter Details Date Type Department Care Team Description 05/21/2022 Orders Only [facility], [facility] [address] [place] [address] Sujit Cabrera DO [address] [facility] [place] [address] Impaired gait and mobility*; Diabetic ulcer of toe of right foot associated with type 2 diabetes mellitus, with fat layer exposed (HCC) Allergies Active Allergy Reactions Severity Noted Date Comments Lisinopril Edema face/lips/tongue High 04/05/2018 documented as of this encounter (statuses as of 05/21/2022) Medications Medication Sig Dispensed Refills Start Date End Date Status Blood Glucose Monitoring Suppl (Nuovo BiologicsUCH ULTRA SYSTEM) W/DEVICE KIT Use as directed [...] 3 08/24/2017 Active Blood Glucose Monitoring Suppl (ONETOUCH VERIO) w/Device [...] 11 12/27/2021 Active FreeStyle Rose Marie 2 [place] Device Test blood sugars four times daily 1 Each 0 12/27/2021 Active Lantus SoloStar 100 UNIT/ML Subcutaneous Solution Pen-injector (Insulin Glargine)Indication s:Type 2 diabetes mellitus with hemoglobin A1c goal of less than 8.0% ([facility]) Inject under the skin 15 Units before bedtime. 15 mL 3 01/06/2022 Active Additional Information Patient taking differently: 20 Units Subcutaneous QHS, Reported on 03/18/2022 Pen [place] 32G X 4 MMIndications:Type 2 diabetes mellitus with hemoglobin A1c goal of less than 8.0% ([facility]) Use as directed . Use to inject [...] with fat layer exposed 01/09/2022 Atherosclerosis of [place] coronary arter y without angina pectoris 01/09/2022 [...] Visit Family Medicine Sujit Yañez MD [address] [facility] [place] [address] 05/27/2022 Telemedicine [facility] Wendy Cisneros CRNP [address] [facility] [place] [address] Radha Lazaro, Community Health Tree Chipper [address] [place] [address] 06/03/2022 Telemedicine [facility] Wendy Cisneros CRNP 132 [facility] [place] [address] Radha Lazaro, Community Health Tree Chipper [address] [place] [address] 06/05/2022 Office Visit Family Medicine James Maria DO 132 [facility] [place] [address] 06/10/2022 Home Visit Family Medicine Sara Recinos, [facility] Tree Chipper [address] [place] [address] 06/18/2022 Office Visit Podiatry Kylie Burroughs, REMEDIOS [address] [place] [address] [place] [address] 06/18/2022 Office Visit Pharmacy [facility] Erica [address] [facility] [place] [address] 08/07/2022 Office Visit Dermatology Suha Duran MD [address] [place] [address] 09/03/2022 Office Visit Cardiology Del Díaz Jr., DO 132 [facility] [place] [address] Scheduled Procedures Name Priority Associated Diagnoses Date/Ti me COLONOSCOPY FLEXIBLE PROXIMA L DIAGNOSTIC Recall Encounter for screening colonoscopy Scheduled Referrals Name Type Priority Associated Diagnoses Orde r Schedule HOME HEALTH REFERRAL OP Referral Within 3 days (urgent) Impaired gait and mobility Diabetic ulcer of toe of right foot associated with type 2 diabetes mellitus, with fat layer exposed (HCC) Ordered: 05/21/2022 Health Maintenance Due Date Last Done Comments [...] as of this encounter Visit Diagnoses Diagnosis Impaired gait and mobility- Primary Diabetic ulcer of toe of right foot associated with type 2 diabetes mellitus, with fat layer exposed (HCC) documented in this encounter Advance Directives Documents on File Type Date Recorded Patient 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
--- OUTSIDE RECORDS SUMMARY | 2023-07-31 20:15 | External Medical Summary | Summary of Care ---
Author Name Unknown Organization [place] [address] Care Team Providers Care Instrument Lens Grinder Name Role Phone James Maria DO Primary Care Provider Encounter Details Date Type Department Care Team Description 05/26/2022 Scan Encounter Family Practice [facility] [address] [place] [address] James Maria DO [address] [place] [address] <No scans attached> Allergies Active Allergy Reactions [...] 5 Tab 6 08/24/2017 Active Glucose Blood (idemamaTOUCH VERIO) STRP Use up to 4 times a day E11.9 300 Strip 3 08/24/2017 Active Blood Glucose Monitoring Suppl ([employer] w/Device KITIndications:Type 2 diabetes mellitus with hemoglobin [...] 11 12/27/2021 Active FreeStyle Rose Marie 2 [place] Device Test blood sugars four times daily 1 Each 0 12/27/2021 Active Lantus SoloStar 100 UNIT/ML Subcutaneous Solution Pen-injector (Insulin Glargine)Indication s:Type 2 diabetes mellitus with hemoglobin A1c goal of less than 8.0% (HCC) Inject under the skin 15 Units before bedtime. 15 mL 3 01/06/2022 Active Additional Information Patient taking differently: 20 Units Subcutaneous QHS, Reported on 03/18/2022 Pen [place] 32G X 4 MMIndications:Type 2 diabetes mellitus [...] of 05/27/2022) Active Problems Problem Noted Date Puncture wound of right foot 05/26/2022 Overview: With associated cellulitis. 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 01/09/2022 [...] Encounters Date Type Specialty Care Team Description 05/27/2022 Telemedicine [facility] Wendy Cisneros CRNP 132 [facility] [place] [address] Radha Lazaro, Community [facility] Global Sourcing Manager [address] [facility] [place] [address] 06/03/2022 Telemedicine [facility] Wendy Cisneros CRNP 132 [place] [address] Radha Lazaro, Community Health Global Sourcing Manager [address] [place] [address] 06/05/2022 Office Visit Family Medicine James Maria, DO [address] [facility] [place] [address] 06/10/2022 Home Visit Family Medicine Sara Recinos, [facility] Health Global Sourcing Manager [address] [place] [address] 06/18/2022 Office Visit Podiatry Kylie Burroughs, [address] [address] 06/18/2022 Office Visit Pharmacy [facility] Erica 132 [place] [address] 06/27/2022 Home Visit [facility] Rica Taylor, RN 132 [facility] [place] [address] 08/07/2022 Office Visit Dermatology Suha Duran MD [address] [place] [address] 09/03/2022 Office Visit Cardiology Del Díaz Jr., DO 132 [facility] [place] [address] Scheduled Procedures Name Priority Associated Diagnoses Date/Ti [...] Documents on File Type Date Recorded 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 [place] [address] PCP - General Family Medicine 06/07/18 documented as of this encounter
--- OUTSIDE RECORDS SUMMARY | 2023-07-31 20:15 | External Medical Summary | Summary of Care ---
Author Name Unknown Organization [place] [address] Care Team Providers Care Semiconductor Processing Technician Name Role Phone James Maria DO Primary Care Provider Encounter Details Date Type Department Care Team Description 05/16/2022 Scan Encounter Family Practice [facility] [address] [place] [address] James Maria DO [address] [place] [address] <No scans attached> Allergies Active Allergy Reactions Severity Noted Date Comments Lisinopril Edema face/lips/tongue High 04/05/2018 documented as of this encounter (statuses as of 05/19/2022) Medications Medication Sig Dispensed Refills Start Date [...] 5 Tab 6 08/24/2017 Active Glucose Blood (BundlrTOUCH VERMakerCraft) STRP Use up to 4 times a day E11.9 300 Strip 3 08/24/2017 Active Blood Glucose Monitoring Suppl ([employer]YouRemember) w/Device KITIndications:Type 2 diabetes mellitus with hemoglobin [...] 11 12/27/2021 Active FreeStyle Rose Marie 2 [place] Device Test blood sugars four times daily 1 Each 0 12/27/2021 Active Lantus SoloStar 100 UNIT/ML Subcutaneous Solution Pen-injector (Insulin Glargine)Indication s:Type 2 diabetes mellitus with hemoglobin A1c goal of less than 8.0% (HCC) Inject under the skin 15 Units before bedtime. 15 mL 3 01/06/2022 Active Additional Information Patient taking differently: 20 Units Subcutaneous QHS, Reported on 03/18/2022 Pen [place] 32G X 4 MMIndications:Type 2 diabetes mellitus [...] as of this encounter (statuses as of 05/19/2022) Active Problems Problem Noted Date Blistering of [...] as of this encounter (statuses as of 05/19/2022) Resolved Problems Problem Noted Date Resolved Date [...] as of this encounter (statuses as of 05/19/2022) Immunizations Name Administration Dates Next Due COVID-19 [...] Office Visit Podiatry Kylie Burroughs, DPMarga [address] [facility] [place] [address] 06/05/2022 Office Visit Family Medicine James Maria DO 132 [place] [address] 06/18/2022 Office Visit Pharmacy [facility] Erica [address] [place] [address] 08/07/2022 Office Visit Dermatology Suha Duran MD 16 [place] [address] 09/03/2022 Office Visit Cardiology Arjun Nielsen, Del Gann, DO [address] [place] [address] Scheduled Procedures Name Priority Associated Diagnoses Date/Ti [...] Documents on File Type Date Recorded Patient Insurance Legal Assistant Expl 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 Directive Advanced Directive Advanced Directive Care Teams Semiconductor Processing Technician Relationship Specialty Start Date End Date James Maria, [address] [facility] [place] [address] PCP - General Family Medicine 06/07/18 documented as of this encounter
--- OUTSIDE RECORDS SUMMARY | 2023-07-31 20:15 | External Medical Summary | Summary of Care ---
Author Name Unknown Organization [place] [address] Care Team Providers Care Machine Engineer Name Role Phone James Maria Primary Care Provider Reason for Visit * Reason Onset Date Comments Appointment 05/20/2022 Encounter Details Date Type Department Care Team Description 05/20/2022 Telephone [facility] [place] [place] [address] [place] [address] Services, Scheduling [address] [place] [address] Appointment Allergies Active Allergy Reactions Severity Noted [...] 3 08/24/2017 Active Blood Glucose Monitoring Suppl ([employer]) w/Device KITIndications:Type 2 diabetes mellitus with hemoglobin [...] Each 12/27/2021 Active FreeStyle Rose Marie 2 [place] Device Test blood sugars four times daily 1 Each 0 12/27/2021 Active Lantus SoloStar 100 UNIT/ML Subcutaneous Solution Pen-injector (Insulin Glargine)Indication s:Type 2 diabetes mellitus with hemoglobin A1c goal of less than 8.0% ([facility]) Inject under the skin 15 Units before bedtime. 15 mL 3 01/06/2022 Active Additional Information Patient taking differently: 20 Units Subcutaneous QHS, Reported on 03/18/2022 Pen [place] 32G X 4 MMIndications:Type 2 diabetes mellitus with hemoglobin A1c goal of less than 8.0% ([facility]) Use as directed . Use to [...] with fat layer exposed 01/09/2022 Atherosclerosis of [place] coronary arter y without angina pectoris 01/09/2022 [...] * Telephone Encounter - MICHEL Estrada - 05/20/2022 11:40 AM EDT Sander Machine scheduling for KINZA (Transition of Care) Telehealth visits: Yes. The patient has a Readmission Risk Score: Yes. The patient's Readmission Risk Score is 25% or less: Yes (Readmission Risk Score is 18-25%) The patient has cellular connectivity in their home to conduct a telehealth visit: Yes Please schedule the patient utilizing the MODERATE RISK Telehealth KINZA Scheduling Guidelines Called and spoke to Farhana regarding KINZA appts below and she was agreeable but asked for her number to be called prior to visit to determine which address, [place], or [place] addressto go to 05/21@4pm 05/27@1230pm 8/@10am 8/@12pm documented in this encounter Plan of Treatment Upcoming Encounters Date Type Specialty Care Team Description 05/21/2022 Home Visit [facility] Rica Taylor RN 132 [place] [address] 05/27/2022 Telemedicine [facility] Wendy Cisneros CRNP [address] [facility] [address] Radha Lazaro, [facility] Dry Color Tester [address] [place] [address] 06/03/2022 Telemedicine [facility] Wendy Cisneros CRNP [address] [place] [address] Radha Lazaro, [facility] Dry Color Tester [address] [place] [address] 06/04/2022 Office Visit Podiatry Kylie Burroughs, DPMarga [address] [place] [phone] 06/05/2022 Office Visit Family Medicine James Maria DO [address] [place] [address] 06/10/2022 Home Visit Family Medicine Radha Lazaro, [facility] Dry Color Tester [address] [place] [address] 06/18/2022 Office Visit [facility] [address] 08/07/2022 Office Visit Dermatology Suha Duran MD 16 [place], [place] [phone] 09/03/2022 Office Visit Cardiology Arjun Nielsen, Del Gann DO [address] [place] [address] Scheduled Procedures Name Priority Associated Diagnoses Date/Ti [...] Documents on File Type Date Recorded Patient Prick Stitcher Expl anation Advanced Directive service a hi [...] Directive Advanced Directive Advanced Directive Care Teams Machine Engineer Relationship Specialty Start Date End Date James Maria, DO 132 [facility] [place] [address] PCP - General Family Medicine 06/07/18 documented as of this encounter
--- OUTSIDE RECORDS SUMMARY | 2023-07-31 20:15 | External Medical Summary | Summary of Care ---
Author Name Unknown Organization [place] [address] Care Team Providers Care Guest Attendant Name Role Phone James Maria DO Primary Care Provider Encounter Details Date Type Department Care Team Description 05/16/2022 Scan Encounter Family Practice [facility] [address] [place] [address] James Maria DO [address] [place] [address] <No scans attached> Allergies Active Allergy Reactions [...] 5 Tab 6 08/24/2017 Active Glucose Blood (Fair and SquareTOUCH VERSWITCH Materials) STRP Use up to 4 times a day E11.9 300 Strip 3 08/24/2017 Active Blood Glucose Monitoring Suppl (onlinetours) w/Device KITIndications:Type 2 diabetes mellitus with hemoglobin [...] 11 12/27/2021 Active FreeStyle Rose Marie 2 [place] Device Test blood sugars four times daily 1 Each 0 12/27/2021 Active Lantus SoloStar 100 UNIT/ML Subcutaneous Solution Pen-injector (Insulin Glargine)Indication s:Type 2 diabetes mellitus with hemoglobin A1c goal of less than 8.0% (HCC) Inject under the skin 15 Units before bedtime. 15 mL 3 01/06/2022 Active Additional Information Patient taking differently: 20 Units Subcutaneous QHS, Reported on 03/18/2022 Pen [place] 32G X 4 MMIndications:Type 2 diabetes mellitus [...] Office Visit Podiatry Kylie Burroughs, DPMarga [address] [facility] [place] [address] 06/05/2022 Office Visit Family Medicine James Maria DO 132 [place] [address] 06/18/2022 Office Visit Pharmacy Anatoly [facility] Erica [address] [place] [address] 08/07/2022 Office Visit Dermatology Suha Duran MD 16 [place] [address] 09/03/2022 Office Visit Cardiology Arjun Nielsen, Del Gann, DO [address] [place] [address] Scheduled Procedures Name Priority Associated Diagnoses Date/Ti [...] Documents on File Type Date Recorded Patient Flash Designer Expl anation Advanced Directive service a hi [...] Directive Advanced Directive Advanced Directive Care Teams Guest Attendant Relationship Specialty Start Date End Date James Maria, 132 [facility] [place] [address] PCP - General Family Medicine 06/07/18 documented as of this encounter
--- OUTSIDE RECORDS SUMMARY | 2023-07-31 20:15 | External Medical Summary ---
Author Name Unknown Address Unknown Organization K01:[facility] - [address] [facility] [place] [address] Laboratory Report Ordering Provider Test Date Status BRIDGER WARD 05/21/2022 16:49:48 Final Observation Date Value Abnormality Reference (Units ) Status SYNC LEUKOCYTES IN BLOOD BY AUTOMATED COUNT 05/21/2022 16:49:48 11.24 Above high normal 4.00-10.80 (K/uL) Final Segs 05/21/2022 16:49:48 62.0 40.0-75.0 (%) Final Lymphs % 05/21/2022 16:49:48 27.3 18.0-42.0 (%) Final Monos 05/21/2022 16:49:48 7.7 1.0-11.0 (%) Final Eosinophils 05/21/2022 16:49:48 1.8 0.0-6.0 (%) Final Basos 05/21/2022 16:49:48 0.6 0.0-2.0 (%) Final Immature Granulocyte, Percent 05/21/2022 16:49:48 0.6 0.0-2.0 (%) Final Absolute Segs 05/21/2022 16:49:48 6.96 1.80-7.70 (K/uL) Final Lymphs, absolute 05/21/2022 16:49:48 3.07 1.00-4.80 (K/ul) Final Monos, Abs 05/21/2022 16:49:48 0.87 0.00-1.10 (K/uL) Final Eos, Abs 05/21/2022 16:49:48 0.20 0.00-0.70 (K/uL) Final Basos, Abs 05/21/2022 16:49:48 0.07 0.00-0.20 (K/uL) Final Immature Granulocytes, Number 05/21/2022 16:49:48 0.07 0.00-0.20 (K/uL) Final Performing Location [facility] [address] [facility] [address]
--- OUTSIDE RECORDS SUMMARY | 2023-07-31 20:15 | External Medical Summary | Continuity of Care Document ---
Author Name Unknown Organization [facility] [address] [place], [place] [address]A Address [facility] [place], [place] [id number] Encounter [facility] [id number] Date(s): 05/19/22 - 05/19/22 [facility] [address] [facility] [address], [address] [address] Encounter Diagnosis Puncture wound of foot, right(Discharge Diagnosis) - 05/19/22 Discharge Disposition: Home or Self Care Attending Physician: MD Catalan Paul S Allergies, Adverse Reactions, Alerts Substance Reaction Severity [...] Start Date: 05/19/22 Status: Ordered Mental Status 05/19/22 Barriers to Learning one year None evide nt Mandatory Health Literacy Documentation Yes Health Literacy Communication Barriers N ever Primary Language German Problem List Condition Effective Dates Status Health Status Inform ant Puncture wound of foot, right(Confirmed) Active Diagnosis Diagnosis Type Effective Dates Health Status Cl inical Service Informant Puncture wound of foot, right Discharge Diagnosis 05/19/22 Vital Signs Most recent to oldest [Reference Range]: 1 Height 161 cm (05/19/22 1:31 PM) Patient Weight 80.4 kg (05/19/22 1:31 PM) Body Mass Index 31.02 kg/m2 (05/19/22 1:31 PM) Social History Social History Type Response Smoking Status Never smoked cigaret live Sex Male
--- OUTSIDE RECORDS SUMMARY | 2023-07-31 20:15 | External Medical Summary | Summary of Care ---
Author Name Unknown Organization [place] [address] Care Team Providers Care Restaurant Area Manager Name Role Phone James Maria Primary Care Provider Reason for Visit * Reason Onset Date Comments Hospital Follow-Up [facility], right f oot injury Hospital Follow-Up 05/23/2022 Encounter Details Date Type Department Care Team Description 05/23/2022 Office Visit Family Practice [facility] [place] [id number] Sujit Yañez MD 132 [facility] [place] [address] Hospital discharge follow-up*; Puncture wound of right foot, subsequent encounter; Type 2 diabetes mellitus with hemoglobin A1c goal of less than 8.0% ([facility]); Type 2 diabetes mellitus with polyneuropathy ([facility]); Paroxysmal atrial fibrillation ([facility]); HTN, goal below 130/80; Atherosclerosis of knik coronary artery of knik heart without angina pectoris; Moderate aortic stenosis; Mixed conductive and sensorineural hearing loss of right ear with restricted hearing of left ear; Hoarding behavior; Overweight (BMI 25.0-29.9) Allergies Active Allergy Reactions Severity Noted Date Comments Lisinopril Edema face/lips/tongue High 04/05/2018 documented as of this encounter (statuses as of 05/23/2022) Medications Medication Sig Dispensed Refills Start Date End Date Status Blood Glucose Monitoring Suppl (Concept3D SYSTEM) W/DEVICE KIT Use as directed 4 [...] 5 Tab 6 08/24/2017 Active Glucose Blood (AVOBTOUCH VERIO) STRP Use up to 4 times a day E11.9 300 Strip 3 08/24/2017 Active Blood Glucose Monitoring Suppl (Lavish Skate) w/Device KITIndications:Type 2 diabetes mellitus with hemoglobin A1c goal of 7.0%-8.0% ([facility]) Use as directed. Recommend check glucose levels [...] less than 8.0% ([facility]) Use up to 4 x a day [...] 11 12/27/2021 Active FreeStyle Rose Marie 2 [place] Device Test blood sugars four times daily 1 Each 0 12/27/2021 Active Lantus SoloStar 100 UNIT/ML Subcutaneous Solution Pen-injector (Insulin Glargine)Indication s:Type 2 diabetes mellitus with hemoglobin A1c goal of less than 8.0% (HCC) Inject under the skin 15 Units before bedtime. 15 mL 3 01/06/2022 Active Additional Information Patient taking differently: 20 Units Subcutaneous QHS, Reported on 03/18/2022 Pen [place] 32G X 4 MMIndications:Type 2 diabetes mellitus [...] as of this encounter (statuses as of 05/23/2022) Active Problems Problem Noted Date Overweight (BMI 25.0-29.9) 05/22/2022 Hoarding behavior 03/20/2022 Paroxysmal atrial fibrillation 2 Moderate aortic stenosis 03/20/2022 Diabetic ulcer of toe of rig ht foot associated with type 2 diabetes mellitus, with fat layer exposed 01/09/2022 Atherosclerosis of knik coronary arter y without angina pectoris 01/09/2022 [...] as of this encounter (statuses as of 05/23/2022) Resolved Problems Problem Noted Date Resolved Date [...] as of this encounter (statuses as of 05/23/2022) Immunizations Name Administration Dates Next Due COVID-19 [...] Sign Reading Time Taken Comments Blood Pressure 102/60 05/23/2022 3:10 PM EDT Pulse 70 05/23/2022 3:10 PM EDT Temperature - - Respiratory Rate - - Oxygen Saturation 96% 05/23/2022 3:10 PM EDT Inhaled Oxygen Concentration - - Weight 77.3 kg (170 lb 6.4 oz) 05/23/2022 3:10 P M EDT Height 167.6 cm (5' 5.98") 05/23/2022 3:10 PM ED T Body Mass Index 27.52 05/23/2022 3:10 PM EDT documented in this encounter Progress Notes * Sujit Yañez MD - 05/23/2022 3:13 PM EDT SUBJECTIVE: Selvin Sebastian is a 76 year old male. Chief Complaint Patient presents with Hospital Follow-Up [facility], right foot injury Hospital Follow-Up Recent Admission: Patient was recently admitted to [facility]. The date of discharge was 05/18/22. Discharge report receivedand reviewed. HPI: Patient is a medically complex and very [place] male who comes in today accompanied by his for a hospital discharge follow up for a puncture wound of the right foot. He was given IV antibioticswhile in the hospital and discharged on keflex and flagyl. He has follow up scheduled with orthopedics. He has a complex living situation where he apparently lives with his sometimes, but then at other times lives with his sister. He and his are very poor historians, not really knowing much of anything about his medications. Fortunately [facility] will be seeing him in 4 days time. 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, with fat layer exposed ([facility]) E11.621, L97.512 Atherosclerosis of knik co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 angina pectoris I25.10 Hoarding behavior F42.3 Paroxysmal atrial fibrillation ([facility]) I48.0 Moderate aortic stenosis I35.0 Overweight (BMI 25.0-29.9) E66.3 Current Outpatient Medications Medication Sig Dispense Refill Blood Glucose Monitoring Suppl (fuseSPORT ULTRA SYSTEM) W/DEVICE KIT Use as directed 4 times a day as needed for Hyperglycemia (high sugar) or Hypoglycemia (low sugar). Use up to four times a day as directed 1 Kit 0 Hot PotatoUCH ULTRA BLUE STRP USE TO CHECK GLUCOSE 4 TIMES DAILY 100 Strip 0 Hot PotatoUCH DELICA LANCETS 33G MISC USE ONE TO CHECK GLUCOSE 4 TIMES DAILY 100 Each 0 Sildenafil Citrate (VIAGRA) 50 MG Tablet Take 1 Tab by mouth as needed for Erectile Dysfunction. 5 Tab 6 Glucose Blood (Hot PotatoUCH VERIO) STRP Use up to 4 times a day E11.9 300 Strip 3 Blood Glucose Monitoring Suppl (Exhale FansIO) w/Device KIT Use as directed. Recommend check glucose levels at least 2 times daily-once in AM before breakfast and once 2 hours after evening meal. 1 Kit 0 Silver sulfADIAZINE 1 % External Cream (Silvadene) Apply topically to affected area daily. Apply to to the left foot ulcer once daily. Cover with dry dressing. Perform once daily. 50 g 1 Insulin Syringe-Needle U-100 30G X 5/16" 0.3 ML Use up to 4 x a day for insulin dosing E11.9 3 Each 1 Atorvastatin Calcium 40 MG Oral Tablet (Lipitor) Take by mouth 1 Tablet in the morning. 90 Tablet 1 Eliquis 5 MG Oral Tablet Take by mouth 1 Tablet in the morning AND 1 Tablet before bedtime. 180Tablet 3 Furosemide 40 MG Oral Tablet (Lasix) Take by mouth 1 Tablet in the morning. 90 Tablet 3 metFORMIN HCl ER 500 MG [...] 2 Each 11 FreeStyle Rose Marie 2 [place] Device Test blood sugars four times daily 1 Each 0 Lantus SoloStar 100 UNIT/ML Subcutaneous Solution Pen-injector (Insulin Glargine) Inject under the skin 15 Units before bedtime. (Patient taking differently: Inject under the skin 20 Units every night at bedtime . ) 15 mL 3 Pen [place] 32G X 4 MM Use as directed . Use to inject insulin up to 4 times daily. 400 Each 3 NovoLOG FlexPen 100 UNIT/ML Subcutaneous Solution Pen-injector (insulin aspart) Inject under the skin 5 Units three times a day with meals . 15 mL 3 Tamsulosin HCl 0.4 MG Oral Capsule (Flomax) TAKE ONE CAPSULE BY MOUTH EVERY MORNING 100 Capsule2 metroNIDAZOLE 500 MG Oral Tablet (Flagyl) Take by mouth 500 mg in the morning AND 500 mg at noon AND 500 mg before bedtime. Cephalexin 500 MG Oral Capsule (Keflex) Take by mouth 500 mg in the morning AND 500 mg at noon AND 500 mg before bedtime. Fluorouracil 5 % External Cream (Efudex) Apply to Scalp, ears, and temples twice a day for three weeks. (Patient not taking: Reported on 05/21/2022 ) 40 g 1 No current facility-administered medications for this visit. Current and discharge medications have been reconciled. Review of patient's allergies indicates: Allergen Reactions Lisinopril Edema face/lips/tongue OBJECTIVE: BP 102/60 | Pulse 70 | Ht 1.676 m (5' 5.98") | Wt 77.3 kg (170 lb 6.4 oz) | SpO2 96% | BMI 27.52 kg/m | BSA 1.9 m PHYSICAL EXAM: Gen: nad, very [place] Heart: irregularly irregular, late peaking systolic murmur Skin: no worrisome lesions or rashes Lungs: ctab Ext: right plantar foot with puncture wound with surrounding maceration, no drainage or warmth ASSESSMENT: Hospital discharge follow-up (Primary) - DISCH MED RECON CUR MED LIS Puncture wound of right foot, subsequent encounter -complete full course of Keflex/Flagyl -re-evaluation by [facility] in 4 days To continue all medication as he has been for all of the problems listed below: Type 2 diabetes mellitus with hemoglobin A1c goal of less than 8.0% (HCC) Type 2 diabetes mellitus with polyneuropathy (HCC) Paroxysmal atrial fibrillation (HCC) HTN, goal below 130/80 Atherosclerosis of knik coronary artery of knik heart without angina pectoris Moderate aortic stenosis Mixed conductive and sensorineural hearing loss of right ear with restricted hearing of left ear Hoarding behavior Overweight (BMI 25.0-29.9) PLAN: Continue present medication(s): Follow up as needed. Sujit Yañez MD documented in this encounter Nursing Notes * CAMPBELL Brown - 05/23/2022 3:10 PM EDT Chief Complaint Patient presents with Hospital Follow-Up [facility], right foot injury documented in this encounter Plan of Treatment Upcoming Encounters Date Type Specialty Care Team Description 05/27/2022 Telemedicine [facility] Wendy Cisneros CRNP [address] [place] [address] Radha Lazaro, [facility] Health Insulator Technician [facility] [place] [place] [address] 06/03/2022 Telemedicine [facility] Wendy Cisneros CRNP [address] [place] [address] Radha Lazaro, [facility] Health Insulator Technician [facility] [place] [place] [address] 06/05/2022 Office Visit Family Medicine James Maria, [address] [place] [address] 06/10/2022 Home Visit Family Medicine Sara Recinos, [facility] Insulator Technician [address] [place] [address] 06/18/2022 Office Visit Podiatry Kylie Burroughs, DPM [address] [facility] [place] [id number] 06/18/2022 [facility] 132 [place] [address] 06/27/2022 Home Visit [facility] [place] Rica Taylor RN [address] [place] [address] 08/07/2022 Office Visit Dermatology Suha Duran MD [address] [place] [address] 09/03/2022 Office Visit Cardiology Del Díaz Jr., DO [address] [place] [address] Scheduled Procedures Name Priority Associated Diagnoses Date/Ti [...] Hospital discharge follow-up- Primary Other follow-up examination Puncture wound of right foot, subsequent encounter Type 2 diabetes mellitus with hemoglobin A1c goal of less than 8.0% (HCC) Type 2 diabetes mellitus with polyneuropathy (HCC) Type II or unspecified type diabetes mellitus with neurological manifestations, not stated as uncontrolled Paroxysmal atrial fibrillation (HCC) Atrial fibrillation HTN, goal below 130/80 Unspecified essential hypertension Atherosclerosis of knik coronary artery of knik heart without angina pectoris Moderate aortic stenosis Aortic valve disorders Mixed conductive and sensorineural hearing loss of right ear with restricted hearing of left ear Hoarding behavior Other conduct disorder Overweight (BMI 25.0-29.9) Overweight documented in this encounter Advance Directives Documents on File Type Date Recorded Patient Sales Service Assistant Expl 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 Directive Advanced Directive Advanced Directive Care Teams Restaurant Area Manager Relationship Specialty Start Date End Date James Maria, DO 132 [facility] [place] [address] PCP - General Family Medicine 06/07/18 documented as of this encounter
--- OUTSIDE RECORDS SUMMARY | 2023-07-31 20:16 | External Medical Summary | Summary of Care ---
Author Name Unknown Organization [place] [address] Care Team Providers Care Bar Machine Operator Multiple Spindle Name Role Phone James Maria Primary Care Provider Reason for Visit * Reason Comments Acute stepped on screw ove r a week ago, R foot Encounter Details Date Type Department Care Team Description 05/16/2022 Office Visit Family Practice [facility] 132 [facility] [place] [phone] Adriana Durán CRNP 132 [facility] [place] [address] Diabetic ulcer of right foot associated with diabetes mellitus due to underlying condition, unspecified part of foot, unspecified ulcer stage (HCC)*; Uncontrolled type 2 diabetes mellitus with hyperglycemia (HCC) Allergies Active Allergy Reactions Severity Noted Date Comments Lisinopril Edema face/lips/tongue High 04/05/2018 documented as of this encounter (statuses as of 05/16/2022) Medications Medication Sig Dispensed Refills Start Date End Date Status Blood Glucose Monitoring Suppl (Pursuit VascularUCH ULTRA SYSTEM) W/DEVICE KIT Use as directed 4 times a day as needed for Hyperglycemia (high sugar) or Hypoglycemia (low sugar). Use up to four times a day as directed 1 Kit 0 01/29/2016 Active AvisenaTOUCH ULTRA BLUE STRP USE TO CHECK GLUCOSE 4 TIMES DAILY 100 Strip 0 11/13/2016 Active AvisenaTOUCH DELICA LANCETS 33G MISC USE ONE TO CHECK GLUCOSE 4 TIMES DAILY 100 Each 0 11/13/2016 Active Sildenafil Citrate (VIAGRA) 50 MG TabletIndications:I mpotence of organic origin Take 1 Tab by mouth as needed for Erectile Dysfunction. 5 Tab 6 08/24/2017 Active Glucose Blood (Dpivision) STRP Use up to 4 times a day E11.9 300 Strip 3 08/24/2017 Active Blood Glucose Monitoring Suppl (Dpivision) w/Device KITIndications:Type 2 diabetes mellitus with hemoglobin A1c goal of 7.0%-8.0% ([facility]) Use as directed. Recommend check [...] 11 12/27/2021 Active FreeStyle Rose Marie 2 [place] Device Test blood sugars four times daily 1 Each 0 12/27/2021 Active Lantus SoloStar 100 UNIT/ML Subcutaneous Solution Pen-injector (Insulin Glargine)Indication s:Type 2 diabetes mellitus with hemoglobin A1c goal of less than 8.0% (HCC) Inject under the skin 15 Units before bedtime. 15 mL 3 01/06/2022 Active Additional Information Patient taking differently: 20 Units Subcutaneous QHS, Reported on 03/18/2022 Pen [place] 32G X 4 MMIndications:Type 2 diabetes mellitus [...] as of this encounter (statuses as of 05/16/2022) Active Problems Problem Noted Date Blistering of [...] as of this encounter (statuses as of 05/16/2022) Resolved Problems Problem Noted Date Resolved Date [...] as of this encounter (statuses as of 05/16/2022) Immunizations Name Administration Dates Next Due COVID-19 [...] Sign Reading Time Taken Comments Blood Pressure 116/62 05/16/2022 12:11 PM EDT Pulse 55 05/16/2022 12:11 PM EDT Temperature 35.6 C (96.1 F) 05/16/2022 12:11 PM E DT Respiratory Rate - - Oxygen Saturation 98% 05/16/2022 12:11 PM EDT Inhaled Oxygen Concentration - - Weight 76.9 kg (169 lb 9.6 oz) 05/16/2022 12:11 PM EDT Height - - Body Mass Index 27.37 02/25/2022 11:14 AM EDT documented in this encounter Progress Notes * BARTOLO Zelaya - 05/16/2022 12:25 PM EDT Images from the original note were not included. History of Present Illness Selvin Sebastian is a 76 year old male that presents for Acute (stepped on screw over a week ago, R foot) HPI Here for R foot ulcer. Very uncontrolled diabetes -- last A1C >13. He stepped on 2 screws about 2-3 weeks ago (can't recall exactly when and not sure how long they were there) and didn't feel it. Noticed blood in his shoe. [facility] provider rx'd keflex course, then also completed a doxycourse. Feels like it's doing better but at no point had any pain so not sure how well it's healing. He is with his , though reviewing his GA notes it looks like he sometimes lives with sister. She has not noticed any fevers, chills, confusion/lethargy. He has chronic LE edema but his R leg ismore swollen. He is very hard of hearing and has limited ability to answer some of the questions abo ut his foot. Physical Exam Vitals: 05/16/22 1211 Temp: 35.6 C (96.1 F) Pulse: 55 SpO2: 98% BP: 116/62 Physical Exam Vitals reviewed. Constitutional: General: He is not in acute distress. Musculoskeletal: Right lower leg: Edema (2+) present. Left lower leg: Edema (1+) present. Skin: Comments: + erythema, edema of RLE + ulcer plantar R foot with white macerated tissue surrounding it. + foul odor. No tenderness, though he has no feeling in feet at baseline. + erythema/warmth of toes. Neurological: Mental Status: He is lethargic. Assessment and Plan Diabetic ulcer of right foot associated with diabetes mellitus due to underlying condition, unspecified part of foot, unspecified ulcer stage (HCC) Recommend ER for urgent labs, imaging and IV antibiotics if indicated; and patient agreeable. to transport him. Nursing will call ER and send over this note. Uncontrolled type 2 diabetes mellitus with hyperglycemia (HCC) - as above Wrap-Up Follow Up: Return if symptoms worsen or fail to improve. Time: I spent a total of 20-29 minutes (exact time 25 mins) on the date of service in preparation, delivery, and documentation of the care provided to Selvin Sebastian excluding any time spent in the performance of separately billed services. documented in this encounter Nursing Notes * Margaret Ramirez LPN - 05/16/2022 12:08 PM EDT The patient has been properly identified by confirmation of name and date of . Chief Complaint Patient presents with Acute stepped on screw over a week ago, R foot Pt here with his , pt is hard of hearing so does most of the explaining. Pt did not feel screws go in to foot. There is now a wound, with white surrounding tissue. Pt went to diabetic shoe appt, lady there suggest they be seen and wrapped foot for pt. Home health Rx antibiotic, pt took for a week. documented in this encounter Plan of Treatment Upcoming Encounters Date Type Specialty Care Team Description 06/04/2022 Office Visit Podiatry Kylie Burroughs, DPMarga [address] [facility] [place] [phone] 06/05/2022 Office Visit [facility] [address] 06/18/2022 Office Visit Pharmacy [facility] Erica 132 [place] [address] 08/07/2022 Office Visit Dermatology Suha Duran MD 16 [facility] [place] [address] 09/03/2022 Office Visit Cardiology Del Díaz Jr., DO [facility] [address] Scheduled Procedures Name Priority Associated Diagnoses Date/Ti [...] as of this encounter Visit Diagnoses Diagnosis Diabetic ulcer of right foot associated with diabetes mellitus due to underlying condition, unspecified part of foot, unspecified ulcer stage (HCC)- Primary Uncontrolled type 2 diabetes mellitus with hyperglycemia (HCC) documented in this encounter Advance Directives Documents on File Type Date Recorded Patient Telecommunications Network Planner Expl anation Advanced Directive service a hi [...] Directive Advanced Directive Advanced Directive Care Teams Bar Machine Operator Multiple Spindle Relationship Specialty Start Date End Date James Maria, 132 [facility] [place] [address] PCP - General Family Medicine 06/07/18 documented as of this encounter
--- OUTSIDE RECORDS SUMMARY | 2023-07-31 20:16 | External Medical Summary | Summary of Care ---
Author Name Unknown Organization [place] [address] Care Team Providers Care Paper Reeler Name Role Phone James Maria Primary Care Provider Reason for Visit * Reason Comments Acute stepped on screw ove r a week ago, R foot Encounter Details Date Type Department Care Team Description 05/16/2022 Office Visit Family Practice [facility] [address] [facility] [place] [phone] Adriana Durán CRNP 132 [facility] [place] [address] Diabetic ulcer of right [...] End Date Status Blood Glucose Monitoring Suppl (HupuUCH ULTRA SYSTEM) W/DEVICE KIT Use as directed 4 times a day as needed for Hyperglycemia (high sugar) or Hypoglycemia (low sugar). Use up to four times a day as directed 1 Kit 0 01/29/2016 Active DeskLodgeTOUCH ULTRA BLUE STRP USE TO CHECK GLUCOSE 4 TIMES DAILY 100 Strip 0 11/13/2016 Active DeskLodgeTOUCH DELICA LANCETS 33G MISC USE ONE TO CHECK GLUCOSE 4 TIMES DAILY 100 Each 0 11/13/2016 Active Sildenafil Citrate (VIAGRA) 50 MG TabletIndications:I mpotence of organic origin Take 1 Tab by mouth as needed for Erectile Dysfunction. 5 Tab 6 08/24/2017 Active Glucose Blood ([place]) STRP Use up to 4 times a day E11.9 300 Strip 3 08/24/2017 Active Blood Glucose Monitoring Suppl ([place]) w/Device KITIndications:Type 2 diabetes mellitus with hemoglobin A1c goal of 7.0%-8.0% ([facility]) Use as directed. Recommend check glucose levels [...] 11 12/27/2021 Active FreeStyle Rose Marie 2 [place] Device Test blood sugars four times daily 1 Each 0 12/27/2021 Active Lantus SoloStar 100 UNIT/ML Subcutaneous Solution Pen-injector (Insulin Glargine)Indication s:Type 2 diabetes mellitus with hemoglobin A1c goal of less than 8.0% (HCC) Inject under the skin 15 Units before bedtime. 15 mL 3 01/06/2022 Active Additional Information Patient taking differently: 20 Units Subcutaneous QHS, Reported on 03/18/2022 Pen [place] 32G X 4 MMIndications:Type 2 diabetes mellitus [...] with fat layer exposed 01/09/2022 Atherosclerosis of chitina coronary arter y without angina pectoris 01/09/2022 [...] Office Visit Podiatry Kylie Burroughs, DPMarga 400 [facility] [place] [phone] 06/05/2022 Office Visit Family Medicine James Maria DO [facility] [address] 06/18/2022 Office Visit Pharmacy [facility] Erica [address] [place] [address] 08/07/2022 Office Visit Dermatology Suha Duran MD 16 [place] [address] 09/03/2022 Office Visit Cardiology Del D[facility]az Jr., DO [facility] [address] Scheduled Procedures Name Priority Associated Diagnoses Date/Ti [...] Documents on File Type Date Recorded Patient Geothermal Sheet Metal Worker Expl anation Advanced Directive service a hi [...] Directive Advanced Directive Advanced Directive Care Teams Paper Reeler Relationship Specialty Start Date End Date James Maria, 132 [facility] [place] [address] PCP - General Family Medicine 06/07/18 documented as of this encounter
--- OUTSIDE RECORDS SUMMARY | 2023-07-31 20:16 | External Medical Summary | Summary of Care ---
Author Name Unknown Organization [place] [address] Care Team Providers Care Floor Worker Well Service Name Role Phone Yariel Mariavor Sophy Primary Care Provider Reason for Visit * Reason Comments [facility]: Acute Encounter Details Date Type Department Care Team Description 05/02/2022 Home Visit [facility] [address] [place] [address] Elzbieta Vaz CRNP [address] [facility] [place] [address] Sara Recinos, Community Health Construction Consultant [address] [place] [address] Cellulitis of right lower extremity*; Type 2 diabetes mellitus with hemoglobin A1c goal of less than 8.0% ([facility]); Blistering of skin; Hoarding behavior Allergies Active Allergy Reactions Severity Noted Date Comments Lisinopril Edema face/lips/tongue High 04/05/2018 documented as of this encounter (statuses as of 05/02/2022) Medications Medication Sig Dispensed Refills Start Date End Date Status Blood Glucose Monitoring Suppl (FTBproTOUCH ULTRA SYSTEM) W/DEVICE KIT Use as directed 4 times a day as needed for Hyperglycemia (high sugar) or Hypoglycemia (low sugar). Use up to four times a day as directed 1 Kit 0 6 Active ONETOUCH ULTRA BLUE STRP USE TO CHECK GLUCOSE 4 TIMES DAILY 100 Strip 0 7 Active ONETOUCH DELICA LANCETS 33G MISC USE ONE TO CHECK GLUCOSE 4 TIMES DAILY 100 Each 0 7 Active Sildenafil Citrate (VIAGRA) 50 MG TabletIndications: Impotence of organic origin Take 1 Tab by mouth as needed for Erectile Dysfunction. 5 Tab 6 7 Active Glucose Blood (FTBproTOUCH VERIO) STRP Use up to 4 times a day E11.9 300 Strip 3 7 Active Blood Glucose Monitoring Suppl (FTBproTOUCH VERIO) w/Device KITIndications:Typ e 2 diabetes mellitus with hemoglobin A1c goal of 7.0%-8.0% (HCC) Use as directed. Recommend check glucose levels at least 2 times daily-once in AM before breakfast and once 2 hours after evening meal. 1 Kit 0 8 Active Silver sulfADIAZINE 1 % External Cream (Silvadene) Apply topically to affected area daily. Apply to to the left foot ulcer once daily. Cover with dry dressing. Perform once daily. 50 g 1 1 Active Fluorouracil 5 % External Cream (Efudex) Apply to Scalp, ears, and temples twice a day for three weeks. 40 g 1 1 Active Insulin Syringe-Needle U-100 30G X 03/17" 0.3 MLIndications:Type 2 diabetes mellitus with polyneuropathy (HCC),Type 2 diabetes mellitus with hemoglobin A1c goal of less than 8.0% (HCC) Use up to 4 x a day for insulin dosing E11.9 3 Each 1 1 Active Atorvastatin Calcium 40 MG Oral Tablet (Lipitor)Indicatio ns:Dyslipidemia Take by mouth 1 Tablet in the morning. 90 Tablet 1 2 Active Eliquis 5 MG Oral TabletIndications: Chronic atrial fibrillation (HCC) Take by mouth 1 Tablet in the morning AND 1 Tablet before bedtime. 180 Tablet 3 2 Active Furosemide 40 MG Oral Tablet (Lasix)Indications :Chronic atrial fibrillation (HCC) Take by mouth 1 Tablet in the morning. 90 Tablet 3 2 Active metFORMIN HCl ER 500 MG Oral Tablet Extended Release 24 Hour (Glucophage XR)Indications:Typ e 2 diabetes mellitus with diabetic neuropathy, with long-term current use of insulin (HCC) Take by mouth 2 Tablets in the morning. 180 Tablet 3 2 Active Metoprolol Tartrate 25 MG Oral Tablet (Lopressor)Indicat ions:Chronic atrial fibrillation (HCC) Take by mouth 1 Tablet in the morning AND 1 Tablet before bedtime. 180 Tablet 3 2 Active FreeStyle Rose Marie 2 Sensor Test blood sugars four times daily 2 Each 11 2 Active FreeStyle Rose Marie 2 Joseph Device Test blood sugars four times daily 1 Each 0 2 Active Lantus SoloStar 100 UNIT/ML Subcutaneous Solution Pen-injector (Insulin Glargine)Indicatio ns:Type 2 diabetes mellitus with hemoglobin A1c goal of less than 8.0% (HCC) Inject under the skin 15 Units before bedtime. 15 mL 3 2 Active Additional Information Patient taking differently: 20 Units Subcutaneous QHS, Reported on 03/18/2022 Pen [place] 32G X 4 MMIndications:Type 2 diabetes mellitus [...] Active Tamsulosin HCl 0.4 MG Oral Capsule (Flomax)Indication s:BPH with obstruction/lower urinary tract symptoms TAKE ONE CAPSULE BY MOUTH EVERY MORNING 100 Capsule 2 2 Active Doxycycline Hyclate 100 MG Oral CapsuleIndications :Cellulitis of right lower extremity Take by mouth 1 Capsule in the morning AND 1 Capsule before bedtime. Do all this for 10 days. Until gone.. 20 Capsule 0 2 022 Active Cephalexin 500 MG Oral Capsule (Keflex)Indication s:Cellulitis of right lower extremity Take by mouth 1 Capsule in the morning AND 1 Capsule at noon AND 1 Capsule before bedtime. Do all this for 7 days. 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 Never true 11/21/2019 Within the past 12 months, t he food you bought just didn't last and you didn't have money to get more. Never true 11/21/2019 Sex Assigned at Date Recorded Male 11/21/2019 11:44 AM EST Job Start Date Occupation Industry Not on file Not on file Not on file documented as of this encounter Last Filed Vital Signs Vital Sign Reading Time Taken Comments Blood Pressure 122/58 05/02/2022 10:05 AM EDT Pulse 52 05/02/2022 10:05 AM EDT Temperature 36.8 C (98.2 F) 05/02/2022 10:05 AM E DT Respiratory Rate 16 05/02/2022 10:05 AM EDT Oxygen Saturation 96% 05/02/2022 10:05 AM EDT Inhaled Oxygen Concentration - - Weight - - Height - - Body Mass Index - - documented in this encounter Progress Notes * BARTOLO Isbell - 05/02/2022 9:58 AM EDT [facility] Visit Date: 05/02/2022 Plan/Discussion: 1. Cellulitis of right lower extremity Failed Keflex as he did not complete as directed Still red and warm per ARABELLA Change to doxycycline 100 mg q12hr for 10 days and d/c Kefelx ARABELLA mold forms builder vs next week for follow up To wound care if not better No HH as he is driving - Doxycycline Hyclate 100 MG Oral Capsule; Take by mouth 1 Capsule in the morning AND 1 Capsule before bedtime. Do all this for 10 days. Until gone.. Dispense: 20 Capsule; Refill: 0 - [facility] 2. Type 2 diabetes mellitus with hemoglobin A1c goal of less than 8.0% (HCC) On Lantus 15 U HS Novolog 5 U AC Metformin BID Rose Marie not working and trying to replace sensor Refused fingerstick today - ARABELLA to follow up later Stay hydrated and eat regular meals - [facility] 3. Blistering of skin Derm referral placed last week; Ask-A-Doc recommendation To call for appt No change in lesions from last week per pictures 4. Hoarding behavior Staying with sister Per he had a trailer but lost it to hoarding issues A total of 40 minutes was spent face to face via video-based telemedicine. HPI: Patient location: HOME. I was not in a hospital or clinic location. After connecting through televideo, patient was verified with two unique identifiers. Patient (or authorized legal risk control field representative) was then informed that this was a Telemedicine visit and being conducted confidentially over secure lines. Methods to assure confidentiality were taken. Patient acknowledged consent and understanding of privacy and security of the Telemedicine visit. The patient agreed to participate. Telehealth visit type: Yes, Acute What accessories are you using? Stethoscope Was there a change to the patient's care plan? Yes, In-Person Assessment Requested, Medication Change or Adjustment and Advice: Acute Medical Concerns Selvin Sebastian is a 76 year old male seen in his home for a [facility] telemedicine provider visit. Date of D/C: N/A HPI: Seen today for acute vs follow up from 04/25 with [facility] provider who ordered Keflex for early rt lower leg cellulitis and new blistering of fingers. Did Ask-A-Doc derm who reviewed images and recommended in person evaluation at [facility] or [place]. Dermatology referral was placed. Seen via video today with and ARABELLA. He is very [place]. He reportedly tripped over his shoe and lost his balance this morning, felt dizzy. May have banged into wall? Denies injury and did not hit hishead. He does not have a working Rose Marie sensor. Took meds this am. Change timing of Flomax to HS andto eat regular meals. Stay hydrated. Change antibiotic to doxycycline 100 mg q12hr for 10 days - instructed not to keep meds in hot car all day, including insulin pens. Can try Silvadene daily to scabbed areas, cover with Telfa, secure with Bautista and tape and use low compression tubigrips for edema mgmt and to pad legs from additionalinjury on car doors. States he is driving; if he does not heal next week then will refer to wound care clinic. ARABELLA mold forms builder vs next week for VS, BG readings and leg assessment. Aware he has derm referral pending from last week for fingers. ARABELLA mold forms builder vs next week for follow up Current Concerns: Dizzy/fell today, Rose Marie sensor not working, did not finish more than 50% of keflex caps from last week. No change in blisters on fingers ROS: Review of Systems Constitutional: Negative for activity change, appetite change, chills and fever. Cardiovascular: Positive for leg swelling. Gastrointestinal: Negative for blood in stool and constipation. Endocrine: Not able to get Rose Marie working Did not check BG today and refused to use fingers due to soreness Storing insulin pens in hot car all day with other medications Genitourinary: Negative for difficulty urinating. Musculoskeletal: Positive for gait problem. Off balance at times Takes Flomax in morning Skin: Positive for wound (did not complete most of Keflex - still 13 caps left. Raised area RLE notimproving ). Neurological: Positive for dizziness (this am; took meds and only ate piece of banana). Lost balance today when sole of his shoe fell apart and he bumped into wall but did not hit his head Hematological: Bruises/bleeds easily. Physical Exam (performed by personalized living assistant in the patient's home and limited to available telehealth tools): BP 122/58 | Pulse 52 | Temp 36.8 C (98.2 F) | Resp 16 | SpO2 96% Physical Exam Vitals reviewed. Constitutional: General: He is not in acute distress. HENT: Head: Normocephalic. Ears: Comments: [place] Cardiovascular: Rate and Rhythm: Bradycardia present. Rhythm irregular. Heart sounds: Murmur heard. Pulmonary: Effort: Pulmonary effort is normal. Breath sounds: Normal breath sounds. Abdominal: General: Bowel sounds are normal. Musculoskeletal: Right lower leg: Edema present. Left lower leg: Edema present. Skin: Coloration: Skin is not pale. Comments: RLE with raised cellulitic areas that are warm (per ARABELLA) and multiple scabs anterior and one posterior LLE with more edema Has not been wearing compression stockings Hit left forehead on willis of car and mildly ecchymotic Blisters on digits unchanged per pictures Neurological: Mental Status: He is alert. Mental status is at baseline. Psychiatric: Mood and Affect: Mood normal. Behavior: Behavior normal. Thought Content: Thought content normal. BARTOLO Lopez [facility] 11:11 AM * Yanira Veras [facility] Health Construction Consultant - 05/02/2022 8:51 AM EDT Community Health Construction Consultant Visit Date: 05/02/2022 Time: 9:30 AM Name: Selvin Sebastian : 1945 Referral Source: manager small business Source of Information: Patient and , Farhana Spoken language: Argentine Patient can read in Argentine: Yes. Rug Measurer needed: No. COVID-19 screening completed: Yes Vitals: Vital signs completed: Yes, vital signs within normal range. There were no vitals taken for this visit. Condition Changes: Changes in health or social status since last visit: Patient being seen for telehealth visit re: BLE wounds. Patient is independently mobile and continues to drive. Will not qualify for home health, per MORTAR CARRIER.Patient agreeable to go to wound clinic, if need. H/o blisters to hands. Observed scabbed areas to fingertips of both hands. No new blisters observed. Advised patient and spouse of need to follow up with dermatology. Verbalized understanding. Provided patient with non stick pads, gauze wrap, and paper tape. Advised and patient to cleanse BLE's with mild soap and water. Pat dry. Apply silvadine cream to all scabbed areas (including area to back of leg). Apply tefla pad - advised one can be cut down to smaller pieces - over silvadine. Wrap with gauze and secure with tape. Ensure gauze is snug, but not tight. Elevate BLE's when in dependent position. The patient has new concerns since last visit: Yes, reports he has been getting "sensor error" on freestyle rose marie. showed ARABELLA sensor that came off last week. Needle was bent. Educated on proper placement of rose marie. Advised to make sure applicator clicks into sensor prior to removing it from the package, then press sensor firmly into the back of the arm. Hold for approx 30 seconds, then release, and pull applicator away from the skin, leaving sensor intact. returned demonstration. Patient reports he hasn't checked bsg since last sensor fell off. Patient paired rose marie to sensor. 60 minutes until able to read. Advised patient and that ARABELLA will call back in an hour for bsg reading and report to MORTAR CARRIER. Verbalized understanding. Progress towards goals since last visit: Not specified Medications: Medication review completed? No, - Does the patient have barriers to medication adherence? No. Patient reports difficulty paying for medications or might in the future: No. Telehealth: This is a telehealth visit: Yes. Type of telehealth visit: Return/Routine Visit conducted with: Physician/AP Symptoms Surveys and Evaluations: MAHC10 completed this visit: Yes. = 5/10 Score is 4 or more? Yes, notified Provider/Property Field Inspector Last flowsheet values for MAHC10: Age 65+: 1 (04/25/2022 3:00 PM) Diagnosis (3 or more co-existing): 1 (04/25/2022 3:00 PM) Prior history of falls within 3 months: 1 (04/25/2022 3:00 PM) Incontinence: 0 (04/25/2022 3:00 PM) Visual impairment: 0 (04/25/2022 3:00 PM) Impaired functional mobility: 0 (04/25/2022 3:00 PM) Environmental hazards: 0 (04/25/2022 3:00 PM) Poly Pharmacy (4 or more prescriptions - any type): 1 (04/25/2022 3:00 PM) Pain affecting level of function: 0 (04/25/2022 3:00 PM) Cognitive impairment: 1 (04/25/2022 3:00 PM) Score - a score of 4 or more is considered at risk for fallin (04/25/2022 3:00 PM) Social Determinants of Health: Safety: o Patient reports feeling unsafe in their home: No. Housing: o Patient reports they are at risk of becoming homeless: No. Home/Living situation: o Patient lives alone: No, lives with sister and her . is involved, but not currently living with patient o Bathroom is located 1 o Bedroom is located 1 o Patient has to go up and down steps: No. o Patient receives help from family/friends/neighbors/community agencies etc.: No. DME: o DME used: Walker o Patient has concerns related to DME: No. Financial: o Patient reports experiencing a financial hardship: No. Employment: o Patient is unemployed or without regular income: No. Utilities: o Patient reports difficulty paying heating, water, or electric bill: No. Transportation: o Patient drives: No. o Does anyone drive patient to appointments and shopping? Yes. o Patient receives community or public transportation assistance: No. o Patient reports trouble getting a ride to medical visits or work: Never True. Clothing: o Patient reports being unable to get clothing when it was really needed: No. Food insecurity: o Patient has concerns surrounding meals/food: No. o Within the past 12 months patient worried food would run out before having money to buy more: Never True. o Within the past 12 months the food patient bought did not last and did not have money to get more: Never True o Food is needed for this week: No. Caregiver/Childcare: o Patient feels overwhelmed with taking care of a child, family member or friend: No. o If caregiver is present, patient reports adequate support: Yes. Connections: o How often do you feel lonely or isolated from those around you? Never. Plan: Per MD, advised patient to wash wound with mild soap and water, pat dry, apply SS cream, and adhesive bandage. Reinforced patient's three red flags by the care team 1. S/s of infection - redness, fever, foul drainage 2. Bsg highs and lows, >300 or <70 3. Redness of LE r/t cellulitis Follow Up: Patient encouraged to call the intake phone number for all urgent but not emergent issues. Scheduled to follow up with patient in PRN. [facility] 05/02/2022 9:30 AM documented in this encounter Plan of Treatment Upcoming Encounters Date Type Specialty Care Team Description 05/09/2022 Home Visit Family Medicine Radha Lazaro, Community Health Construction Consultant [address] [place] [address] 06/04/2022 Office Visit Podiatry Kylie Burroughs DPM [address] [place] [id number] 06/05/2022 Office Visit Family Medicine James Maria DO [address] [facility] [place] [address] 06/18/2022 Office Visit Pharmacy [facility] Erica [address] [facility] [place] [address] 08/07/2022 Office Visit Dermatology Suha Duran MD [address] [place] [address] 09/03/2022 Office Visit Cardiology Arjun Nielsen, [place], DO [address] [place] [address] Scheduled Procedures Name Priority Associated Diagnoses Date/Ti [...] 2022 08/10/2021, 08/03/2020, 08/22/2019, Additional history exists BASIC METABOLIC PANEL (BMP) FOR HTN YEARLY 11/08/2022 11/08/2021, 02/27/2021, 06/01/2020, Additional history exists [...] as of this encounter Visit Diagnoses Diagnosis Cellulitis of right lower extremity- Primary Cellulitis and abscess of leg, except foot Type 2 diabetes mellitus with hemoglobin A1c goal of less than 8.0% (HCC) Blistering of skin Hoarding behavior Other conduct disorder documented in this encounter Advance Directives Documents on File Type Date Recorded Patient Technical Writing Lead/Mgr Expl anation Advanced Directive service a hi [...] Directive Advanced Directive Advanced Directive Care Teams Floor Worker Well Service Relationship Specialty Start Date End Date James Maria, [address] [place] [address] PCP - General Family Medicine 06/07/18 documented as of this encounter
--- OUTSIDE RECORDS SUMMARY | 2023-07-31 20:16 | External Medical Summary | Summary of Care ---
Author Name Unknown Organization [place] [address] Care Team Providers Care Hand Buffing Wheel Former Name Role Phone James Maria Primary Care Provider Encounter Details Date Type Department Care Team Description 05/09/2022 Home Visit Care Coordination [address] [place] [address] Radha Lazaro, Community Health Agricultural Economics Teacher [address] [place] [address] No Show Allergies Active Allergy Reactions Severity Noted Date Comments Lisinopril Edema face/lips/tongue High 04/05/2018 documented as of this encounter (statuses as of 05/09/2022) Medications Medication Sig Dispensed Refills Start Date [...] 3 08/24/2017 Active Blood Glucose Monitoring Suppl (TrendMDTOseedtag VERIO) w/Device KITIndications:Type 2 diabetes mellitus with [...] Each 12/27/2021 Active FreeStyle Rose Marie 2 [place] Device Test blood sugars four times daily 1 Each 0 12/27/2021 Active Lantus SoloStar 100 UNIT/ML Subcutaneous Solution Pen-injector (Insulin Glargine)Indication s:Type 2 diabetes mellitus with hemoglobin A1c goal of less than 8.0% ([facility]) Inject under the skin 15 Units before bedtime. 15 mL 3 01/06/2022 Active Additional Information Patient taking differently: 20 Units Subcutaneous QHS, Reported on 03/18/2022 Pen What[place] 32G X 4 MMIndications:Type 2 diabetes mellitus [...] EVERY MORNING 100 Capsule 2 04/11/2022 Active Doxycycline Hyclate 100 MG Oral CapsuleIndications: Cellulitis of right lower extremity Take by mouth 1 Capsule in the morning AND 1 Capsule before bedtime. Do all this for 10 days. Until gone.. 20 Capsule 0 05/02/2022 Active documented as of this encounter (statuses as of 05/09/2022) Active Problems Problem Noted Date Blistering of [...] with fat layer exposed 01/09/2022 Atherosclerosis of [place] coronary arter y without angina pectoris 01/09/2022 [...] as of this encounter (statuses as of 05/09/2022) Resolved Problems Problem Noted Date Resolved Date [...] as of this encounter (statuses as of 05/09/2022) Immunizations Name Administration Dates Next Due COVID-19 [...] as of this encounter Progress Notes * Radha Lazaro, Community Health Agricultural Economics Teacher - 05/09/2022 2:31 PM EDT ARABELLA call to patient no trim stencil maker. ARABELLA went to [place] address in chart. Women(sister) there stated he was staying there but is no longer.She stated he has a trailer in [place]. lives in [place]. Call to She stated she has seen patient today he is doing well reported legs are doing much better. stated she will have patient call ARABELLA Patient call to ARABELLA He reported he is staying place to place his home in [place] has no water no electric.Stated he is unable to fix this. He is interested in help to be able to live in his home in [place]. ARABELLA reached out to [facility].They will contact patient with housing resources Reporting his legs are doing much better. There is a pain in his toes sometimes Reported he hade two screws go threw his shoe 2-3 days ago. He did not feel them. He seen blood when taking his shoe off . cleaned area and applied antibacterial ointment Reporting BSG Have been [id number] documented in this encounter Plan of Treatment Upcoming Encounters Date Type Specialty Care Team Description 06/04/2022 Office Visit Podiatry Kylie Burroughs, [facility] [address] [place] [id number] 06/05/2022 Office Visit Family Medicine James Maria DO [address] [facility] [place] [address] 06/18/2022 Office Visit Pharmacy [facility] Erica [address] [facility] [place] [address] 08/07/2022 Office Visit Dermatology Suha Duran MD [address] [place] [address] 09/03/2022 Office Visit Cardiology Del Díaz Jr., [address] [facility] [place] [address] Scheduled Procedures Name Priority Associated Diagnoses Date/Ti [...] Documents on File Type Date Recorded Patient Congressional Assistant Expl 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 Directive Advanced Directive Advanced Directive Care Teams Hand Buffing Wheel Former Relationship Specialty Start Date End Date James Maria, [address] [facility] [place] [address] PCP - General Family Medicine 06/07/18 documented as of this encounter
--- OUTSIDE RECORDS SUMMARY | 2023-07-31 20:16 | External Medical Summary | Summary of Care ---
Author Name Unknown Organization [place] [address] Care Team Providers Care Retirement Administrator Name Role Phone James Maria Primary Care Provider Encounter Details Date Type Department Care Team Description 04/25/2022 Telephone [facility], [facility] 132 [facility] [place] [address] Wendy Cisneros CRNP [facility] [place] [address] Allergies Active Allergy Reactions Severity Noted Date Comments Lisinopril Edema face/lips/tongue High 04/05/2018 documented as of this encounter (statuses as of 04/28/2022) Medications Medication Sig Dispensed Refills Start Date End Date Status Blood Glucose Monitoring Suppl (ONETOArkansas Science & Technology Authority ULTRA SYSTEM) W/DEVICE KIT Use as directed [...] Tab 6 08/24/2017 Active Glucose Blood (ONETOUCH VERCommun.it) STRP Use up to 4 times a day E11.9 300 Strip 3 08/24/2017 Active Blood Glucose Monitoring Suppl ([employer]) w/Device KITIndications:Type 2 diabetes mellitus with hemoglobin A1c goal of 7.0%-8.0% ([facility]) Use as directed. Recommend check glucose [...] hemoglobin A1c goal of less than 8.0% ([facility]) Use up to 4 x a [...] Each 12/27/2021 Active FreeStyle Rose Marie 2 [place] Device Test blood sugars four times daily 1 Each 0 12/27/2021 Active Lantus SoloStar 100 UNIT/ML Subcutaneous Solution Pen-injector (Insulin Glargine)Indication s:Type 2 diabetes mellitus with hemoglobin A1c goal of less than 8.0% (HCC) Inject under the skin 15 Units before bedtime. 15 mL 3 01/06/2022 Active Additional Information Patient taking differently: 20 Units Subcutaneous QHS, Reported on 03/18/2022 Pen [place] 32G X 4 MMIndications:Type 2 diabetes mellitus [...] 04/11/2022 Active Cephalexin 500 MG Oral Capsule (Keflex)Indications :Cellulitis of right lower extremity Take by mouth 1 Capsule in the morning AND 1 Capsule at noon AND 1 Capsule before bedtime. Do all this for 7 days. 21 Capsule 0 04/25/2022 2 Active documented as of this encounter (statuses as of 04/28/2022) Active Problems Problem Noted Date Blistering of [...] with fat layer exposed 01/09/2022 Atherosclerosis of [place] coronary arter y without angina pectoris [...] as of this encounter (statuses as of 04/28/2022) Resolved Problems Problem Noted Date Resolved Date [...] as of this encounter (statuses as of 04/28/2022) Immunizations Name Administration Dates Next Due COVID-19 [...] Encounters Date Type Specialty Care Team Description 05/02/2022 [facility] Visit [facility] Elda Ponce, RN [address] [place] [address] 06/04/2022 Office Visit Podiatry Kylie Burroughs DPM [address] [place] [address] 06/05/2022 Office Visit Family Medicine James Maria DO [address] [place] [address] 06/18/2022 Office Visit [facility]acy [facility]a [address] [place] [address] 09/03/2022 Office Visit Cardiology Del Díaz Jr., DO [address] [place] [address] Scheduled Procedures Name Priority Associated Diagnoses Date/Ti [...] for Moderna series) 06/27/2022 02/25/2022, 03/24/2021, 02/22/2021 BASIC METABOLIC PANEL (BMP) FOR HTN YEARLY 11/08/2022 11/08/2021, 02/27/2021, 06/01/2020, Additional history exists Pneumococcal Vaccine: 65+ Years Completed 12/24/2015, 07/23/2011 Zoster Vaccines Completed 03/13/2020, 11/03, 08/03/2012 Influenza Vaccine (FLU shot) Completed 07/2021, 08/03/2020, 08/22/2019, Additional history exists GARDASIL-HPV IMMUNIZATION SERIES Aged Out No longer eligible based on patient's age to complete this topic MENINGOCOCCAL (MENACTRA/MENVEO) Aged Out No longer eligible based on patient's age to complete this topic documented as of this encounter Implants Not on filedocumented as of this encounter Advance Directives Documents on File Type Date Recorded Patient Pilot Captain Expl anation Advanced Directive service a hi [...] Directive Advanced Directive Advanced Directive Care Teams Retirement Administrator Relationship Specialty Start Date End Date James Maria, [address] [place] [address] PCP - General Family Medicine 06/07/18 documented as of this encounter
--- OUTSIDE RECORDS SUMMARY | 2023-07-31 20:16 | External Medical Summary | Summary of Care ---
Author Name Unknown Organization [place] [address] Care Team Providers Care Boat Canvas Maker Installer Name Role Phone James Maria Primary Care Provider Encounter Details Date Type Department Care Team Description 04/25/2022 Telephone [facility], [facility] 132 [facility] [place] [address] Wendy Cisneros CRNP 132 [facility] [address] Allergies Active Allergy Reactions Severity Noted Date Comments Lisinopril Edema face/lips/tongue High 04/05/2018 documented as of this encounter (statuses as of 04/28/2022) Medications Medication Sig Dispensed Refills Start Date End Date Status Blood Glucose Monitoring Suppl (ONETOCrowdSYNC ULTRA SYSTEM) W/DEVICE KIT Use as directed [...] Tab 6 08/24/2017 Active Glucose Blood (ONETOUCH VERAlticast) STRP Use up to 4 times a day E11.9 300 Strip 3 08/24/2017 Active Blood Glucose Monitoring Suppl (TSO3) w/Device KITIndications:Type 2 diabetes mellitus with hemoglobin A1c goal of 7.0%-8.0% ([facility]) Use as directed. Recommend check glucose [...] than 8.0% ([facility]) Use up to 4 x [...] Each 12/27/2021 Active FreeStyle Rose Marie 2 [place] Device Test blood sugars four times daily 1 Each 0 12/27/2021 Active Lantus SoloStar 100 UNIT/ML Subcutaneous Solution Pen-injector (Insulin Glargine)Indication s:Type 2 diabetes mellitus with hemoglobin A1c goal of less than 8.0% (HCC) Inject under the skin 15 Units before bedtime. 15 mL 3 01/06/2022 Active Additional Information Patient taking differently: 20 Units Subcutaneous QHS, Reported on 03/18/2022 Pen [place] 32G X 4 MMIndications:Type 2 diabetes mellitus [...] with fat layer exposed 01/09/2022 Atherosclerosis of [place] coronary arter y without angina pectoris 01/09/2022 [...] * Telephone Encounter - BARTOLO Bentley - 04/25/2022 5:41 PM EDT PT being treated for cellulitis RLE. Needs either nurse visit recheck next week or provider telemedicine to recheck the leg either or Thursday. Thanks. documented in this encounter Plan of Treatment Upcoming Encounters Date Type Specialty Care Team Description 05/02/2022 [facility] Visit [facility] Elda Ponce, RN [address] [place] [address] [place] [address] 06/04/2022 Office Visit Podiatry Kylie Burroughs, REMEDIOS [address] [place] [address] 06/05/2022 Office Visit Family Medicine James Maria, [address] [place] [address] 06/18/2022 Office Visit Pharmacy [facility] Erica [address] [place] [address] 09/03/2022 Office Visit Cardiology Del Díaz Jr., DO [address] [place] [address] Scheduled Procedures Name Priority Associated Diagnoses Date/Ti [...] Documents on File Type Date Recorded Patient Wide Area Network Administrator Expl anation Advanced Directive service a hi [...] Directive Advanced Directive Advanced Directive Care Teams Boat Canvas Maker Installer Relationship Specialty Start Date End Date James Maria DO [address] [place] [address] PCP - General Family Medicine 06/07/18 documented as of this encounter
--- OUTSIDE RECORDS SUMMARY | 2023-07-31 20:16 | External Medical Summary | Summary of Care ---
Author Name Unknown Organization [place] [address] Care Team Providers Care Soda Jerker Name Role Phone Yariel Mariavor Sophy Primary Care Provider Reason for Visit * Reason Onset Date Comments Appointment 05/02/2022 Encounter Details Date Type Department Care Team Description 05/02/2022 Telephone [facility], [facility] [address] [facility] [place] [address] Services, Scheduling [address] [place] [address] Appointment Allergies Active Allergy Reactions Severity Noted [...] 3 08/24/2017 Active Blood Glucose Monitoring Suppl ([employer]) w/Device KITIndications:Type 2 diabetes mellitus with hemoglobin [...] Each 12/27/2021 Active FreeStyle Rose Marie 2 [place] Device Test blood sugars four times daily 1 Each 0 12/27/2021 Active Lantus SoloStar 100 UNIT/ML Subcutaneous Solution Pen-injector (Insulin Glargine)Indication s:Type 2 diabetes mellitus with hemoglobin A1c goal of less than 8.0% ([facility]) Inject under the skin 15 Units before bedtime. 15 mL 3 01/06/2022 Active Additional Information Patient taking differently: 20 Units Subcutaneous QHS, Reported on 03/18/2022 Pen [place] 32G X 4 MMIndications:Type 2 diabetes mellitus with hemoglobin A1c goal of less than 8.0% ([facility]) Use as directed . Use to [...] days. Until gone.. 20 Capsule 0 05/02/2022 2 Active documented as of this encounter [...] with fat layer exposed 01/09/2022 Atherosclerosis of [place] coronary arter y without angina pectoris 01/09/2022 [...] * Telephone Encounter - MICHEL Alexander - 05/02/2022 11:12 AM EDT Next available appointment with Derm 08/07 at 1pm. Dermatology Scenery next appointment in 12/2022. Patient on waiting list for cancellation Appointment Location:Dermatology [address] [place] [address] Scheduling number Derm [phone] Attempted to call patient, no answer both number on chart. Mailbox is full documented in this encounter Plan of Treatment Upcoming Encounters Date Type Specialty Care Team Description 06/04/2022 Office Visit [facility] DPM [address] [facility] [address] 06/05/2022 Office Visit Family Medicine James Maria, 132 [facility] [place] [address] 06/18/2022 Office Visit Pharmacy [facility]a [address] [facility] [place] [address] 08/07/2022 Office Visit Dermatology Suha Duran MD [address] [place] [address] 09/03/2022 Office Visit Cardiology Del Díaz Jr., DO [address] [facility] [place] [address] Scheduled Procedures Name Priority Associated Diagnoses Date/Ti [...] Documents on File Type Date Recorded Patient Blueprinting And Photocopy Supervisor Expl 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 Directive Advanced Directive Advanced Directive Care Teams Soda Jerker Relationship Specialty Start Date End Date James Maria DO [address] [place] [address] PCP - General Family Medicine 06/07/18 documented as of this encounter
--- OUTSIDE RECORDS SUMMARY | 2023-07-31 20:16 | External Medical Summary | Summary of Care ---
Author Name Unknown Organization [place] [address] Care Team Providers Care Glue Bone Crusher Name Role Phone James Maria Primary Care Provider Reason for Visit * Reason Comments Acute stepped on screw ove r a week ago, R foot Encounter Details Date Type Department Care Team Description 05/16/2022 Office Visit Family Practice [facility] 132 [facility] [place] [id number] Adriana Durán CRNP 132 [facility] [place] [address] Diabetic ulcer of right [...] End Date Status Blood Glucose Monitoring Suppl (AdeptenceUCH ULTRA SYSTEM) W/DEVICE KIT Use as directed 4 times a day as needed for Hyperglycemia (high sugar) or Hypoglycemia (low sugar). Use up to four times a day as directed 1 Kit 0 01/29/2016 Active Advanced Seismic TechnologiesTOUCH ULTRA BLUE STRP USE TO CHECK GLUCOSE 4 TIMES DAILY 100 Strip 0 11/13/2016 Active Advanced Seismic TechnologiesTOUCH DELICA LANCETS 33G MISC USE ONE TO CHECK GLUCOSE 4 TIMES DAILY 100 Each 0 11/13/2016 Active Sildenafil Citrate (VIAGRA) 50 MG TabletIndications:I mpotence of organic origin Take 1 Tab by mouth as needed for Erectile Dysfunction. 5 Tab 6 08/24/2017 Active Glucose Blood (Algenol [employer]fuel) STRP Use up to 4 times a day E11.9 300 Strip 3 08/24/2017 Active Blood Glucose Monitoring Suppl (Algenol Biofuel) w/Device KITIndications:Type 2 diabetes mellitus with hemoglobin A1c goal of 7.0%-8.0% ([facility]) Use as directed. Recommend check glucose [...] 11 12/27/2021 Active FreeStyle Rose Marie 2 [place] Device Test blood sugars four times daily 1 Each 0 12/27/2021 Active Lantus SoloStar 100 UNIT/ML Subcutaneous Solution Pen-injector (Insulin Glargine)Indication s:Type 2 diabetes mellitus with hemoglobin A1c goal of less than 8.0% (HCC) Inject under the skin 15 Units before bedtime. 15 mL 3 01/06/2022 Active Additional Information Patient taking differently: 20 Units Subcutaneous QHS, Reported on 03/18/2022 Pen [place] 32G X 4 MMIndications:Type 2 diabetes mellitus [...] with fat layer exposed 01/09/2022 Atherosclerosis of [place] coronary arter y without angina pectoris 01/09/2022 [...] documented in this encounter Nursing Notes * Margaert Ramirez LPN - 05/16/2022 12:08 PM EDT [...] Office Visit Podiatry Kylie Burroughs, DPMarga [address] [facility] [place] [id number] 06/05/2022 Office Visit Family Medicine James [facility] DO [facility] [address] 06/18/2022 [facility] Visit [facility]acy [facility] Erica 132 [place] [address] 08/07/2022 Office Visit Dermatology Suha Duran MD 16 [facility] [place] [address] 09/03/2022 Office Visit Cardiology Del Díaz Jr., DO 132 [facility] [address] Scheduled Procedures Name Priority Associated Diagnoses Date/Ti [...] Documents on File Type Date Recorded Patient Borematic Operator Expl 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 Directive Advanced Directive Advanced Directive Care Teams Glue Bone Crusher Relationship Specialty Start Date End Date James Maria, 132 [facility] [place] [address] PCP - General Family Medicine 06/07/18 documented as of this encounter
--- OUTSIDE RECORDS SUMMARY | 2023-07-31 20:16 | External Medical Summary | Summary of Care ---
Author Name Unknown Organization [place] [address] Care Team Providers Care Primary School Teacher Librarian Name Role Phone Yariel Mariavor Sophy Primary Care Provider Reason for Visit * Reason Comments [facility]: Acute Encounter Details Date Type Department Care Team Description 05/02/2022 [facility] Visit [facility] [address] [place] [facility] [place] [address] Elzbieta Vaz CRNP [address] [place] [facility] [place] [address] Sara Recinos, Community Health Waiter/Waitress Third Class [address] [facility] [address] [place] [address] Cellulitis of right lower extremity*; Type 2 diabetes mellitus with hemoglobin A1c goal of less than 8.0% ([facility]); Blistering of skin; Hoarding behavior Allergies Active Allergy Reactions Severity Noted Date Comments Lisinopril Edema face/lips/tongue High 04/05/2018 documented as of this encounter (statuses as of 05/02/2022) Medications Medication Sig Dispensed Refills Start Date End Date Status Blood Glucose Monitoring Suppl (No Boundaries Brewing EmpireTOUCH ULTRA SYSTEM) W/DEVICE KIT Use as directed [...] 5 Tab 6 7 Active Glucose Blood (No Boundaries Brewing EmpireTOUCH VERIO) STRP Use up to 4 times a day E11.9 300 Strip 3 7 Active Blood Glucose Monitoring Suppl (No Boundaries Brewing EmpireTOUCH VERIO) w/Device KITIndications:Typ e 2 diabetes mellitus [...] 11 2 Active FreeStyle Rose Marie 2 [place] Device Test blood sugars four times daily 1 Each 0 2 Active Lantus SoloStar 100 UNIT/ML Subcutaneous Solution Pen-injector (Insulin Glargine)Indicatio ns:Type 2 diabetes mellitus with hemoglobin A1c goal of less than 8.0% (HCC) Inject under the skin 15 Units before bedtime. 15 mL 3 2 Active Additional Information Patient taking differently: 20 Units Subcutaneous QHS, Reported on 03/18/2022 Pen [place] 32G X 4 MMIndications:Type 2 diabetes mellitus [...] fat layer exposed 01/09/2022 Atherosclerosis of [place] coronary arter y without angina pectoris 01/09/2022 [...] for 10 days and d/c Kefelx ARABELLA account services coordinator vs next week for follow up To [...] two unique identifiers. Patient (or authorized legal call center support representative) was then informed that this was [...] male seen in his home for a [email or web address] telemedicine provider visit. Date of D/C: N/A HPI: Seen today for acute vs follow up from 04/25 with [facility] provider who ordered Keflex for early rt lower leg cellulitis and new blistering of fingers. Did Ask-A-Doc derm who reviewed images and recommended in person evaluation at [facility] or [facility]. Dermatology referral was placed. Seen via video today with and ARABELLA. He is very [place]. He reportedly tripped over his shoe and [...] will refer to wound care clinic. ARABELLA account services coordinator vs next week for VS, BG readings and leg assessment. Aware he has derm referral pending from last week for fingers. ARABELLA account services coordinator vs next week for follow up Current [...] Hematological: Bruises/bleeds easily. Physical Exam (performed by registered nurse first assistant in the patient's home and limited to available telehealth tools): BP 122/58 | Pulse 52 | Temp 36.8 C (98.2 F) | Resp 16 | SpO2 96% Physical Exam Vitals reviewed. Constitutional: General: He is not in acute distress. HENT: Head: Normocephalic. Ears: Comments: [place] Cardiovascular: Rate and Rhythm: Bradycardia present. Rhythm [...] at Home 11:11 AM * Yanira Veras [facility] Waiter/Waitress Third Class - 05/02/2022 8:51 AM EDT Images from the original note were not included. Community Health Waiter/Waitress Third Class Visit Date: 05/02/2022 Time: 9:30 AM Name: Selvin Sebastian : 1945 Referral Source: manager [place] Source of Information: Patient and , Farhana Spoken language: Mosotho Patient can read in Mosotho: Yes. Assistant Gm Of Content & Delivery needed: No. COVID-19 screening completed: Yes Vitals: Vital signs completed: Yes, vital signs within normal range. BP 122/58 | Pulse 52 | Temp 36.8 C (98.2 F) | Resp 16 | SpO2 96% Condition Changes: Changes in health or social status since last visit: Patient being seen for telehealth visit re: BLE wounds. Patient is independently mobile and continues to drive. Will not qualify for home health, per CATH LAB TECH.Patient agreeable to go to wound clinic, if [...] hour for bsg reading and report to CATH LAB TECH. Verbalized understanding. Progress towards goals since last [...] Score is 4 or more? Yes, notified Provider/Cigar Packer And Grader Last flowsheet values for MAHC10: Age 65+: [...] isolated from those around you? Never. Plan: Wrote down instructions for wound care and new med as per CATH LAB TECH. and patient verbalized understanding. ARABELLA will place call to to f/u re: bsg. Reinforced patient's three red flags by the [...] Visit Family Medicine Radha Lazaro, Community Health Waiter/Waitress Third Class [address] [place] [address] 06/04/2022 Office Visit Podiatry Kylie [facility]roughs DPM [facility] [address] 06/05/2022 Office Visit Family Medicine James Maria DO [address] [place] [address] 06/18/2022 Office Visit Pharmacy [facility]a [address] [place] [address] 08/07/2022 Office Visit Dermatology Suha Duran MD [address] [place] [address] 09/03/2022 Office Visit Cardiology Arjun Nielsen, Del Gann DO [address] [facility] [place] [address] Scheduled Procedures Name Priority Associated Diagnoses Date/Ti [...] Documents on File Type Date Recorded Patient Assistant Associate Professor Expl anation Advanced Directive service a hi [...] Directive Advanced Directive Advanced Directive Care Teams Primary School Teacher Librarian Relationship Specialty Start Date End Date James Maria DO [address] [facility] [place] [address] PCP - General Family Medicine 06/07/18 documented as of this encounter
--- OUTSIDE RECORDS SUMMARY | 2023-07-31 20:17 | External Medical Summary | Summary of Care ---
Author Name Unknown Organization [place] [address] Care Team Providers Care Cigar Roller Name Role Phone James Maria Primary Care Provider Reason for Visit * Reason Onset Date Comments [facility]: Maintenance 03/18/2022 Encounter Details Date Type Department Care Team Description 03/18/2022 Telephone [facility] 132 [facility] [place] [address] Rica Taylor, RN 132 [facility] [place] [address] [facility]: Maintenance Allergies Active Allergy Reactions Severity Noted Date Comments Lisinopril Edema face/lips/tongue High 04/05/2018 documented as of this encounter (statuses as of 03/19/2022) Medications Medication Sig Dispensed Refills Start Date [...] 5 Tab 6 08/24/2017 Active Glucose Blood (Biomedix vascular solutionTOUCH VERIO) STRP Use up to 4 times a day E11.9 300 Strip 3 08/24/2017 Active Blood Glucose Monitoring Suppl (Biomedix vascular solutionTOWePay VERIO) w/Device KITIndications:Type 2 diabetes mellitus with [...] 07/05/2021 Active Insulin Syringe-Needle U-100 30G X 5" 0.3 MLIndications:Type 2 diabetes mellitus with polyneuropathy [...] 12/25/2021 Active Furosemide 40 MG Oral Tablet (Lasix)Indications:C [...] before bedtime. 180 Tablet 3 12/25/2021 Active Tamsulosin HCl 0.4 MG Oral Capsule (Flomax)Indications: BPH with obstruction/lower urinary tract symptoms Take by mouth 1 Capsule in the morning. 90 Capsule 0 12/25/2021 Active FreeStyle Rose Marie 2 Sensor Test blood sugars four times daily 2 Each 11 12/27/2021 Active FreeStyle Rose Marie 2 [place] Device Test blood sugars four times daily 1 Each 0 12/27/2021 Active Lantus SoloStar 100 UNIT/ML Subcutaneous Solution Pen-injector (Insulin Glargine)Indications :Type 2 diabetes mellitus with hemoglobin A1c goal of less than 8.0% (HCC) Inject under the skin 15 Units before bedtime. 15 mL 3 01/06/2022 Active Additional Information Patient taking differently: 20 Units Subcutaneous QHS, Reported on 03/18/2022 Pen [place] 32G X 4 MMIndications:Type 2 diabetes mellitus with hemoglobin A1c goal of less than 8.0% (HCC) Use as directed . Use to inject insulin up to 4 times daily. 400 Each 3 01/06/2022 Active NovoLOG FlexPen 100 UNIT/ML Subcutaneous Solution Pen-injector (insulin aspart) Inject under the skin 5 Units three times a day with meals . 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 ICD-10 update of inactive term Mixed conductive and sensori neural hearing loss of right ear with restricted hearing of left ear Overview: right documented as of this encounter (statuses as of 03/19/2022) Resolved Problems Problem Noted Date Resolved Date [...] as of this encounter (statuses as of 03/19/2022) Immunizations Name Administration Dates Next Due COVID-19 [...] encounter Miscellaneous Notes * Telephone Encounter - Ceferino Davis RPh - 03/19/2022 12:49 PM EDT Noted. Patient followed by [facility] and last seen 03/17/22. Ceferino Davis [facility] * Telephone Encounter - BARTOLO Isbell - 03/19/2022 9:16 AM EDT [facility] Phone Encounter [facility] Cohort: Focused Care Management (3-9 months) Quick Links: Open wound RLE. Picture reviewed in [facility] from 03/18/22 Assessment and Recommendations: Open wound RLE - refer to HH Problem List Items Addressed This Visit None Addt'l Comments: Hx of diabetes, MTM please follow up with [facility] given open leg wound Will need telehealth vs for F2F for HH today or tomorrow To Do: Please see below for follow up items to be completed and correspondence: HERMINIO to [facility] Care Team Scheduling Pool please schedule SAME day facilitated telemedicine visit with Provider/BARTOLO Guerra [facility] - [facility] 03/19/2022 Scheduled appointments in the next 60 days: Future Appointments-next 60 days Date/Time Provider Specialty Dept Phone 04/01/2022 9:30 AM Sara Recinos, [facility] Mixing Machine Tender [place] [employer] Family Medicine [phone] 04/15/2022 10:00 AM Rica Taylor RN [facility] [phone] 06/02/2022 3:00 PM (Arrive by 2:45 PM) Del Díaz Jr., DO Cardiology [phone] 06/04/2022 1:00 PM (Arrive by 12:45 PM) Kylie Burroughs DPM Podiatry [phone] 06/04/2022 1:40 PM (Arrive by 1:25 PM) James Maria DO Family Medicine [phone] 06/18/2022 2:30 PM [facility] [phone] * Telephone Encounter - Rica Taylor RN - 03/18/2022 3:12 PM EDT Pt needs Home Health referral for wound care of RLE. Per pt and , they do not have a preference on which home health agency. Thank you. documented in this encounter Plan of Treatment Upcoming Encounters Date Type Specialty Care Team Description 03/20/2022 [facility]medicine [facility] [address] [facility] [address] Yanira Veras, [facility] Mixing Machine Tender [employer] [address] [place] [address] [place] [address] 04/01/2022 Home Visit Family Medicine Sara Recinos, [facility] Mixing Machine Tender [employer] [address] [place] [address] 04/15/2022 Home Visit [facility] Rica Taylor RN 132 [facility] [place] [address] 06/02/2022 Office Visit Cardiology Del Díaz Jr., DO 132 [place] [address] 06/04/2022 Office Visit Podiatry Kylie Burroughs DPM 400 [facility] [place] [address] 06/04/2022 Office Visit Family Medicine James Maria DO 132 [place] [address] 06/18/2022 Office [address] [facility] Erica 132 [place] [address] Scheduled Procedures Name Priority Associated Diagnoses Date/Ti [...] 03/04/2022 03/04/2021, , 06/30/2016, Additional history exists BASIC METABOLIC PANEL (BMP) FOR HTN YEARLY 11/08/2022 11/08/2021, 02/27/2021, 06/01/2020, Additional history exists Pneumococcal Vaccine: 65+ Years Completed 12/24/2015, 07/23/2011 Zoster Vaccines Completed 03/13/2020, 11/03, 08/03/2012 Influenza Vaccine (FLU shot) Completed 07/2021, 08/03/2020, 08/22/2019, Additional history exists COVID-19 Vaccine Completed 02/25/2022, , 02/22/2021 GARDASIL-HPV IMMUNIZATION SERIES Aged Out No longer eligible based on patient's age to complete this topic MENINGOCOCCAL (MENACTRA/MENVEO) Aged Out No longer eligible based on patient's age to complete this topic documented as of this encounter Implants Not on filedocumented as of this encounter Advance Directives Documents on File Type Date Recorded Patient Lvn Lpn Expl anation Advanced Directive service a hi [...] Directive Advanced Directive Advanced Directive Care Teams Cigar Roller Relationship Specialty Start Date End Date James Maria DO [address] [place] [address] PCP - General Family Medicine 06/07/18 documented as of this encounter
--- OUTSIDE RECORDS SUMMARY | 2023-07-31 20:17 | External Medical Summary | Summary of Care ---
Author Name Unknown Organization [place] [address] Care Team Providers Care Mainframe Systems Administrator Name Role Phone Mejia Maria Primary Care Provider Reason for Visit * Reason Comments eRx-Medication Refill Encounter Details Date Type Department Care Team Description 04/11/2022 [facility]ill [facility] 132 [facility] [place] [address] Wendy Cisneros CRNP 132 [facility] [place] [address] BPH with obstruction/lower urinary tract symptoms Allergies Active Allergy Reactions Severity Noted Date Comments Lisinopril Edema face/lips/tongue High 04/05/2018 documented as of this encounter (statuses as of 04/11/2022) Medications Medication Sig Dispensed Refills Start Date [...] 5 Tab 6 7 Active Glucose Blood ([employer]yan Consultancy ServicesTOUCH VERIO) STRP Use up to 4 times a day E11.9 300 Strip 3 7 Active Blood Glucose Monitoring Suppl (Vignyan Consultancy ServicesTOUnicotrip VERIO) w/Device KITIndications:Typ e 2 diabetes mellitus [...] 11 2 Active FreeStyle Rose Marie 2 [place] Device Test blood sugars four times daily 1 Each 0 2 Active Lantus SoloStar 100 UNIT/ML Subcutaneous Solution Pen-injector (Insulin Glargine)Indicatio ns:Type 2 diabetes mellitus with hemoglobin A1c goal of less than 8.0% (HCC) Inject under the skin 15 Units before bedtime. 15 mL 3 2 Active Additional Information Patient taking differently: 20 Units Subcutaneous QHS, Reported on 03/18/2022 Pen Lom[place] 32G X 4 MMIndications:Type 2 diabetes mellitus [...] EVERY MORNING 100 Capsule 2 2 Active Tamsulosin HCl 0.4 MG Oral Capsule (Flomax)Indication s:BPH with obstruction/lower urinary tract symptoms Take by mouth 1 Capsule in the morning. 90 Capsule 0 2 022 Discontinued documented as of this encounter (statuses as of 04/11/2022) Active Problems Problem Noted Date Hoarding behavior 03/20/2022 Paroxysmal atrial fibrillation 2 Moderate aortic stenosis 03/20/2022 Wound of right leg 03/20/2022 Diabetic ulcer of toe of rig ht foot associated with type 2 diabetes mellitus, with fat layer exposed 01/09/2022 Atherosclerosis of [place] coronary arter y without angina pectoris [...] as of this encounter (statuses as of 04/11/2022) Resolved Problems Problem Noted Date Resolved Date [...] as of this encounter (statuses as of 04/11/2022) Immunizations Name Administration Dates Next Due COVID-19 [...] encounter Miscellaneous Notes * Telephone Encounter - Judith Perez [facility] - 04/11/2022 8:42 AM EDT Signed Prescriptions: Disp Refills Tamsulosin HCl 0.4 MG Oral Capsule (Flomax)100 Ca*2 Sig: TAKE ONE CAPSULE BY MOUTH EVERY MORNINGAuthorizing Provider: MEJIA MARIA User: JUDITH PEREZ documented in this encounter Plan of Treatment Upcoming Encounters Date Type Specialty Care Team Description 04/15/2022 Home Visit [facility] Rica Taylor RN 132 [place] [address] 04/18/2022 Telemedicine [facility] Wendy Cisneros CRNP 132 [place] [address] Sara Recinos, [facility] Preschool Director [address] [place] [address] 06/02/2022 Office Visit Cardiology Del Díaz Jr., DO [address] [place] [address] 06/04/2022 Office Visit Podiatry Kylie Burroughs, DP [address] [place] [address] 06/04/2022 Office Visit Family Medicine Mejia Maria, [address] [place] [address] 06/18/2022 Office Visit Pharmacy [facility] Erica 132 [place] [address] Scheduled Procedures Name Priority Associated Diagnoses Date/Ti [...] (LUTS) documented in this encounter Advance Directives Documents on File Type Date Recorded Patient Bread Dumper Expl anation Advanced Directive service a hi [...] Directive Advanced Directive Advanced Directive Care Teams Mainframe Systems Administrator Relationship Specialty Start Date End Date Mejia Maria DO [address] [place] [address] PCP - General Family Medicine 06/07/18 documented as of this encounter
--- OUTSIDE RECORDS SUMMARY | 2023-07-31 20:17 | External Medical Summary | Summary of Care ---
Author Name Unknown Organization [place] [address] Care Team Providers Care Infrastructure Project Manager Name Role Phone James Maria Primary Care Provider Reason for Visit * Reason Onset Date Comments Immunizations 04/15/2022 Encounter Details Date Type Department Care Team Description 04/15/2022 [facility] Visit [facility] 132 [facility] [place] [address] Elvis Franks PA-C [address] [place] [address] [place] [address] Type 2 diabetes mellitus with hemoglobin A1c goal of less than 8.0% (HCC)*; Paroxysmal atrial fibrillation (HCC); Dyslipidemia; BPH with obstruction/lower urinary tract symptoms; HTN, goal below 130/80; Need for prophylactic vaccination with tetanus-diphtheria (Td) Allergies Active Allergy Reactions Severity Noted Date Comments Lisinopril Edema face/lips/tongue High 04/05/2018 documented as of this encounter (statuses as of 04/15/2022) Medications Medication Sig Dispensed Refills Start Date End Date Status Blood Glucose Monitoring Suppl (Salient PharmaceuticalsTOUCH ULTRA SYSTEM) W/DEVICE KIT Use as directed 4 times a day as needed for Hyperglycemia (high sugar) or Hypoglycemia (low sugar). Use up to four times a day as directed 1 Kit 0 01/29/2016 Active Salient PharmaceuticalsTOUCH ULTRA BLUE STRP USE TO CHECK GLUCOSE 4 TIMES DAILY 100 Strip 0 11/13/2016 Active ONETOUCH DELICA LANCETS 33G MISC USE ONE TO CHECK GLUCOSE 4 TIMES DAILY 100 Each 0 11/13/2016 Active Sildenafil Citrate (VIAGRA) 50 MG TabletIndications:I mpotence of organic origin Take 1 Tab by mouth as needed for Erectile Dysfunction. 5 Tab 6 08/24/2017 Active Glucose Blood (Salient PharmaceuticalsTOUCH VERIO) STRP Use up to 4 times a day E11.9 300 Strip 3 08/24/2017 Active Blood Glucose Monitoring Suppl (Salient PharmaceuticalsTOUCH VERIO) w/Device KITIndications:Type 2 diabetes mellitus with [...] 11 12/27/2021 Active FreeStyle Rose Marie 2 [place] Device Test blood sugars four times daily 1 Each 0 12/27/2021 Active Lantus SoloStar 100 UNIT/ML Subcutaneous Solution Pen-injector (Insulin Glargine)Indication s:Type 2 diabetes mellitus with hemoglobin A1c goal of less than 8.0% (HCC) Inject under the skin 15 Units before bedtime. 15 mL 3 01/06/2022 Active Additional Information Patient taking differently: 20 Units Subcutaneous QHS, Reported on 03/18/2022 Pen [place] 32G X 4 MMIndications:Type 2 diabetes mellitus [...] as of this encounter (statuses as of 04/15/2022) Active Problems Problem Noted Date Need for prophylactic vaccination with t etanus-diphtheria [...] as of this encounter (statuses as of 04/15/2022) Resolved Problems Problem Noted Date Resolved Date [...] as of this encounter (statuses as of 04/15/2022) Immunizations Name Administration Dates Next Due COVID-19 [...] Sign Reading Time Taken Comments Blood Pressure 120/58 04/15/2022 11:29 AM EDT Pulse 58 04/15/2022 11:29 AM EDT Temperature 35.4 C (95.7 F) 04/15/2022 11:29 AM E DT Respiratory Rate 15 04/15/2022 11:29 AM EDT Oxygen Saturation 98% 04/15/2022 11:29 AM EDT Inhaled Oxygen Concentration - - Weight - - Height - - Body Mass Index - - documented in this encounter Patient Instructions * Patient Instructions* Elvis Franks PA-C - 04/15/2022 1:01 PM EDT ~~PATIENT INSTRUCTIONS FOR Td VACCINE~~ [...] OF EYES, FACE OR INSIDE OF NOSE. documented in this encounter Plan of Treatment Upcoming Encounters Date Type Specialty Care Team Description 04/18/2022 Telemedicine [facility] Wendy Cisneros CRNP 132 [facility] [place] [address] Sara Recinos, Community [facility] Trawl Net Maker [address] [place] [address] 06/02/2022 Office Visit Cardiology Del Díaz Jr., DO [address] [place] [address] 06/04/2022 Office Visit Podiatry Kylie Burroughs, DPMarga 400 [facility] [place] [address] 06/05/2022 Office Visit Family Medicine James Maria, [address] [place] [address] 06/18/2022 Office Visit Pharmacy [facility] Erica [address] [place] [address] Scheduled Orders Name Type Priority Associated Diagnoses Orde r Schedule HEMOGLOBIN A1C Lab Routine Type 2 diabetes mellitus with hemoglobin A1c goal of less than 8.0% (HCC) Expected: 04/22/2022, Expires: 05/15/2022 CBC WITH WBC DIFFERENTIAL Lab Routine Type 2 diabetes mellitus with hemoglobin A1c goal of less than 8.0% (HCC) Dyslipidemia HTN, goal below 130/80 Expected: 04/22/2022 (Approximate), Expires: 05/15/2022 COMPREHENSIVE METABOLIC PANEL Lab Routine Type 2 diabetes mellitus with hemoglobin A1c goal of less than 8.0% (HCC) Dyslipidemia HTN, goal below 130/80 Expected: 04/22/2022 (Approximate), Expires: 05/15/2022 Scheduled Procedures Name Priority Associated Diagnoses Date/Ti [...] goal of less than 8.0% (HCC)- Primary Paroxysmal atrial fibrillation (HCC) Atrial fibrillation Dyslipidemia Other and unspecified hyperlipidemia BPH with obstruction/lower urinary tract symptoms Hypertrophy of prostate with urinary obstruction and other lower urinary tract symptoms (LUTS) HTN, goal below 130/80 Unspecified essential hypertension Need for prophylactic vaccination with tetanus-diphtheria (Td) documented in this encounter Advance Directives Documents on File Type Date Recorded Patient Shelter Case Manager Expl 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 Directive Advanced Directive Advanced Directive Care Teams Infrastructure Project Manager Relationship Specialty Start Date End Date James Maria, 132 [facility] [place] [address] PCP - General Family Medicine 06/07/18 documented as of this encounter
--- OUTSIDE RECORDS SUMMARY | 2023-07-31 20:17 | External Medical Summary | Summary of Care ---
Author Name Unknown Organization [place] [address] Care Team Providers Care Extrusion Former Name Role Phone Rylan Mariar Sophy Primary Care Provider Reason for Visit * Reason Onset Date Comments Appointment 04/28/2022 Encounter Details Date Type Department Care Team Description 04/28/2022 Telephone [facility], [facility] [address] [facility] [place] [address] Services, Scheduling [address] [place] [address] Appointment Allergies Active Allergy Reactions Severity Noted [...] 3 08/24/2017 Active Blood Glucose Monitoring Suppl ([employer]) w/Device KITIndications:Type 2 diabetes mellitus with hemoglobin [...] Each 12/27/2021 Active FreeStyle Rose Marie 2 [place] Device Test blood sugars four times daily 1 Each 0 12/27/2021 Active Lantus SoloStar 100 UNIT/ML Subcutaneous Solution Pen-injector (Insulin Glargine)Indication s:Type 2 diabetes mellitus with hemoglobin A1c goal of less than 8.0% ([facility]) Inject under the skin 15 Units before bedtime. 15 mL 3 01/06/2022 Active Additional Information Patient taking differently: 20 Units Subcutaneous QHS, Reported on 03/18/[address] [place] [address] 32G X 4 MMIndications:Type 2 diabetes mellitus [...] for 7 days. 21 Capsule 0 04/25/2022 Active documented as of this encounter (statuses [...] with fat layer exposed 01/09/2022 Atherosclerosis of [place] coronary arter y without angina pectoris 01/09/2022 [...] * Telephone Encounter - MICHEL Alexander - 04/28/2022 12:28 PM EDT Called and left detailed message. Appointment was scheduled for 05/02 at 8:30am CM DANTE Ponce. Recheck with CM RN or provider. C/O PT being treated for cellulitis RLE documented in this encounter Plan of Treatment Upcoming Encounters Date Type Specialty Care Team Description 05/02/2022 Home Visit [facility] Elda Ponce RN [address] [place] [address] [place] [address] 06/04/2022 Office Visit Podiatry Kylie Burroughs, [facility] [address] [place] [address] 06/05/2022 Office Visit Family Medicine James Maria, DO [address] [place] [address] 06/18/2022 Office Visit Pharmacy [facility] Erica [address] [place] [address] 09/03/2022 Office Visit Cardiology Del Díaz Jr., [address] [place] [address] Scheduled Procedures Name Priority Associated Diagnoses Date/Ti [...] Documents on File Type Date Recorded Patient [place] Expl anation Advanced Directive service a hi [...] Directive Advanced Directive Advanced Directive Care Teams Extrusion Former Relationship Specialty Start Date End Date James Maria DO 132 [place] [address] PCP - General Family Medicine 06/07/18 documented as of this encounter
--- OUTSIDE RECORDS SUMMARY | 2023-07-31 20:17 | External Medical Summary | Summary of Care ---
Author Name Unknown Organization [place] [address] Care Team Providers Care Founding Partner Name Role Phone Yariel Mariavoolaf Beckett Primary Care Provider Reason for Visit * Reason Comments [facility]: Telehealth Encounter Details Date Type Department Care Team Description 04/25/2022 Telemedicine [facility], [facility] [address] [place] [address] Wendy Cisneros CRNP [address] [place] [address] Sara Recinos, Community Health Pig Lead Melter Helper [address] [place] [address] Cellulitis of right lower extremity*; Type 2 diabetes mellitus with hemoglobin A1c goal of less than 8.0% ([facility]); Blistering of skin Allergies Active Allergy Reactions Severity Noted Date Comments Lisinopril Edema face/lips/tongue High 04/05/2018 documented as of this encounter (statuses as of 04/25/2022) Medications Medication Sig Dispensed Refills Start Date End Date Status Blood Glucose Monitoring Suppl (SociogramicsTOUCH ULTRA SYSTEM) W/DEVICE KIT Use as directed [...] 5 Tab 6 08/24/2017 Active Glucose Blood (SociogramicsTOUCH VERIO) STRP Use up to 4 times [...] 11 12/27/2021 Active FreeStyle Rose Marie 2 [place] Device Test blood sugars four times daily 1 Each 0 12/27/2021 Active Lantus SoloStar 100 UNIT/ML Subcutaneous Solution Pen-injector (Insulin Glargine)Indication s:Type 2 diabetes mellitus with hemoglobin A1c goal of less than 8.0% (HCC) Inject under the skin 15 Units before bedtime. 15 mL 3 01/06/2022 Active Additional Information Patient taking differently: 20 Units Subcutaneous QHS, Reported on 03/18/2022 Pen [place] 32G X 4 MMIndications:Type 2 diabetes mellitus [...] as of this encounter (statuses as of 04/25/2022) Active Problems Problem Noted Date Blistering of [...] with worsening symptoms. Will plan nurse or [facility] provider telemedicine recheck visit one week [...] Last Assessment & Plan: Uncontrolled--being followed by [facility] --lantus 15 units daily --novolog 5 units TID wit meals --metformin 1000mg BID Mixed conductive and sensori neural hearing loss of right ear with restricted hearing of left ear Overview: right documented as of this encounter (statuses as of 04/25/2022) Resolved Problems Problem Noted Date Resolved Date [...] as of this encounter (statuses as of 04/25/2022) Immunizations Name Administration Dates Next Due COVID-19 [...] Sign Reading Time Taken Comments Blood Pressure 115/56 04/25/2022 4:15 PM EDT Pulse 56 04/25/2022 4:15 PM EDT Temperature 36.4 C (97.5 F) 04/25/2022 4:15 PM ED T Respiratory Rate - - Oxygen Saturation 94% 04/25/2022 4:15 PM EDT Inhaled Oxygen Concentration - - Weight - - Height - - Body Mass Index - - documented in this encounter Progress Notes * BARTOLO Bentley - 04/25/2022 3:14 PM EDT Images from the original note were not included. [facility] Problem Oriented Charting Provider Visit Date: 04/25/2022 Time: 3:28 PM [facility] Cohort: Focused Care Management (3-9 months) Assessment and Plan {Visit Diagnoses Problem List - Afib CAD Diabetes Hypertension :40887} Cellulitis of right lower extremity Assessment & Plan: Concern for early cellulitis. See photos with erythema R lower leg. Will start cephalexin. Advised to call with worsening symptoms. Will plan nurse or [facility] provider telemedicine recheck visit one week to assess healing. Orders: - Cephalexin; Take by mouth 1 Capsule in the morning AND 1 Capsule at noon AND 1 Capsule before bedtime. Do all this for 7 days. Type 2 diabetes mellitus with hemoglobin A1c goal of less than 8.0% ([facility]) Assessment & Plan: Uncontrolled--being followed by [facility] --lantus 15 units daily --novolog 5 units TID wit meals --metformin 1000mg BID Blistering of skin Assessment & Plan: Pt denies burning hands or smoking. He is not picking blisters, no rash on other parts of body, No pain or s/s infection. Covering fingers. Not on palms--not itchy. Will send derm ask a doc for advice. Additional Medical Decision Making: Plan as above. Pt keeping follow up with specialists and pcp. Per , pt sees pcp in Jun. No further planned [facility] provider visits. Will follow up as above. Pt otherwise stable. Home Interventions Provided: Oral Medications: Antibiotic Consulted PCP/Specialist Reinforced current Plan of Care, including self-management and medication regimen Scheduled appointments in the next 60 days: Future Appointments-next 60 days Date/Time Provider Specialty Dept Phone 06/04/2022 1:00 PM (Arrive by 12:45 PM) Kylie Burroughs DPM Podiatry [phone] 06/05/2022 2:40 PM (Arrive by 2:25 PM) James Maria DO Family Medicine [phone] 06/18/2022 2:[address] [facility] [phone] 09/03/2022 3:00 PM (Arrive by 2:45 PM) Del Díaz Jr., DO Cardiology [phone] A total of 18 minutes was spent face to face (via video-based telemedicine if designated as a telemedicine visit) Subjective Subjective Is this a Telemedicine Visit? Yes, Patient location: HOME. I was not in a hospital or clinic location. After connecting through televideo, patient was verified with two unique identifiers. Patient (or authorized legal patient account representative) was then informed that this was a Telemedicine visit and being conducted confidentially over secure lines. Methods to assure confidentiality were taken. Patient acknowledged consent and understanding of privacy and security of the Telemedicine visit. The patient agreed to participate. Reason For [facility] Visit: Follow-Up Current Concerns: Selvin Sebastian is a 76 year old male seen today for a [facility] provider visit. Today's visit scheduled as follow up. Per chart review, was seen by Elvis Franks on 04/15 and stable. Today's concerns are: R hand with blisters on fingers, some that opened and scabbed. Has on both hands. Had for a week or so. Develops blisters that burst. No blisters anywhere else on body. None on feet. None on palms of hands. Also working on his car, bumping his anterior lower legs often. Has some scabs. No open areas, painor drainage. Objective Objective BP 115/56 | Pulse 56 | Temp 36.4 C (97.5 F) | SpO2 94% Last Weights: Wt Readings from Last 3 Encounters: 02/25/22 84.8 kg (187 lb) 12/26/21 82.8 kg (182 lb 8 oz) 12/18/21 86.6 kg (191 lb) Last BPs: BP Readings from Last 4 Encounters: 04/25/22 115/56 04/15/22 120/58 04/01/22 124/60 03/20/22 128/74 Physical Exam Constitutional: General: He is not in acute distress. Appearance: He is not toxic-appearing. Pulmonary: Effort: Pulmonary effort is normal. Skin: Comments: Bilat LE with scabbing--RLE with some mild surrounding erythema. No purulent drainage Bilat hands with scabbing, serous blister just below nail bed Neurological: Mental Status: He is alert. Lab Review: I have reviewed the following results: BMP results Recent Labs Units 11/08/21 0000 02/27/21 1124 06/01/20 1518 SODIUM - [facility] mmol/L -- 134* 135 POTASSIUM - [facility] mmol/L -- 4.2 4.5 POTASSIUM-OUTSIDE LAB MMOL/L 4.3 -- -- CHLORIDE - [facility] mmol/L -- 97* 93* CO2 - [facility] mmol/L -- 23 29 CREATININE - [facility] mg/dL -- 1.0 1.1 CREATININE-OUTSIDE LAB MG/DL 1.32 -- -- BUN - [facility] mg/dL -- 14 17 CBC results Recent Labs Units 11/08/21 0000 02/27/21 1124 WBC AUTO - [facility] K/uL -- 9.72 HGB - [facility] g/dL -- 14.6 HEMOGLOBIN-OUTSIDE LAB G/DL 13.3* -- HCT - [facility] % -- 42.6 PLATELET AUTO - [facility] K/uL -- 292 HbA1c results Recent Labs Units 02/27/21 1124 HEMOGLOBIN A1C - [facility] % 13.2* Medication Review New medication(s) added: cephalexin BARTOLO Bentley 3:14 PM *Communication sent to PCP (via [facility] if [facility]), [facility] Health Care Team members,relevant Specialty Care Physicians* * Sara Recinos [facility] Pig Lead Melter Helper - 04/25/2022 3:05 PM EDT Images from the original note were not included. Community [facility] Pig Lead Melter Helper Visit Date: 04/25/2022 Time: 3:05 PM Name: Selvin Sebastian : 1945 Referral Source: financial institution manager Source of Information: Patient Spoken language: tongan Patient can read in Khmer: Yes. Cushion Maker needed: No. COVID-19 screening completed: Yes Vitals: Vital signs completed: Yes, vital signs within normal range. BP 115/56 | Pulse 56 | Temp 36.4 C (97.5 F) | SpO2 94% Condition Changes: Changes in health or social status since last visit: Yes-rt hand has lump and then opens up. The patient has new concerns since last visit: No Progress towards goals since last visit: Medications: Medication review completed? No, none requested Does the patient have barriers to medication adherence? No. Patient reports difficulty paying for medications or might in the future: No. Telehealth: This is a telehealth visit: Yes. Type of telehealth visit: Return/Routine Visit conducted with: Physician/AP Symptoms Surveys and Evaluations: [facility] completed this visit: Yes. Score is 4 or more? Yes, notified Provider/Helicopter Dispatcher Last flowsheet values for [facility]: Age 65+: 1 (04/25/2022 3:00 PM) Diagnosis [...] at risk for fallin (04/25/2022 3:00 PM) Home Safety Does member identify any safety issues related to entering or exiting their home? No Does the patient need a wheelchair ramp to access the home? No Snow/ice removal assistance available? Yes Is there adequate lighting? Yes Are there railings on stairs? N/A Do sidewalks appear to be in good repair? Yes Does member identify any safety issues related to the interior of their home? No If durable medical equipment is used, halls and doorways easy to navigate? Yes Are there trip hazards in the home? No Are there working smoke detectors/CO2 detectors? Yes Is a health condition present or an air quality concern that an air conditioner or other coolingdevice will help? Yes Do stairs in the home have railings? No Is there a medical alert or phone near patient? Yes Are walkways clear and well lit? No Does member identify any safety issues related to utilizing or accessing the bathroom in their home? No Does bathroom have grab bars needed? Yes The patient reports needing help getting on and off the toilet? No Does the patient report needing help bathing? Yes He has his watch and make sure he is safe to shower. Are there any other identified issues/needs? No. If yes specify: Social Determinants of Health: Safety: o Patient reports feeling unsafe in their home: No. Housing: o Patient reports they are at risk of becoming homeless: No. Home/Living situation: o Patient lives alone: No, with sistere and family o Bathroom is located 1 o Bedroom is located 1 o Patient has to go up and down steps: No. Patient receives help from family/friends/neighbors/community agencies etc.: Yes. Type of help the patient receives: transportaton Patient perceives the help they receive as adequate: o Yes. DME: o DME used: Shower chair o Patient has concerns related to DME: No. Financial: o Patient reports experiencing a financial hardship: No. Employment: o Patient is unemployed or without regular income: No. Utilities: o Patient reports difficulty paying heating, water, or electric bill: No. Transportation: o Patient drives: Yes. o Does anyone drive patient to appointments [...] or isolated from those around you? Never. Heart Failure Checklist Patient states every day is a good day regarding his heart. His sleep is normal and he does not keep track of fluids or weigh himself on a daily basis. Right hand Left hand Left hand Left Leg T Right leg pink Patient states that the past 10 days or so he has these blister like lesions on his hands. They then will break open and then you can see on the left hand it leaves a indented spot. It is not painful. Patient right leg has pinkness around the scabbed area. He works outside on his car and gets these scrapes. Plan: Plan for the patient is to get the antibiotics the GENERAL AGENT will order for his leg and then wait to hear from BARTOLO about what she finds out from the director of testing about his fingers. Follow Up: Patient encouraged to call the intake phone number for all urgent but not emergent issues. Scheduled to follow up with patient as directed by CM. Sara Recinos [facility] Pig Lead Melter Helper 04/25/2022 3:05 PM Electronically signed by Sara Recinos [facility] Pig Lead Melter Helper at 04/25/2022 5:48 PM EDT documented in this encounter Miscellaneous Notes * Assessment & Plan Note - BARTOLO Bentley - 04/25/2022 5:43 PM EDT Associated Problem(s): Blistering of skin Pt denies burning hands or smoking. He is not picking blisters, no rash on other parts of body, No pain or s/s infection. Covering fingers. Not on palms--not itchy. Will send derm ask a doc for advice. * Assessment & Plan Note - BARTOLO Bentley - 04/25/2022 5:42 PM EDT Associated Problem(s): Cellulitis of right lower extremity Concern for early cellulitis. See photos with erythema R lower leg. Will start cephalexin. Advised to call with worsening symptoms. Will plan nurse or [facility] provider telemedicine recheck visit one week to assess healing. * Assessment & Plan Note - BARTOLO Bentley - 04/25/2022 5:39 PM EDT Associated Problem(s): Type 2 diabetes mellitus with hemoglobin A1c goal of less than 8.0% (HCC) Uncontrolled--being followed by [facility] --lantus 15 units daily --novolog 5 units TID wit meals --metformin 1000mg BID documented in this encounter Plan of Treatment Upcoming Encounters Date Type Specialty Care Team Description 06/04/2022 Office Visit Podiatry Kylie Burroughs DPM [address] [place] [address] 06/05/2022 Office Visit Family Medicine James Maria DO [address] [place] [address] 06/18/2022 Office Visit Pharmacy [facility] Erica [address] [place] [address] 09/03/2022 Office Visit Cardiology Del Díaz Jr., DO [address] [place] [address] Scheduled Procedures Name Priority Associated Diagnoses Date/Ti [...] less than 8.0% (HCC) Blistering of skin documented in this encounter Advance Directives Documents on File Type Date Recorded Patient Hydrostatic Tester Expl anation Advanced Directive service a hi [...] Directive Advanced Directive Advanced Directive Care Teams Founding Partner Relationship Specialty Start Date End Date James Maria DO [address] [facility] [place] [address] PCP - General Family Medicine 06/07/18 documented as of this encounter
--- OUTSIDE RECORDS SUMMARY | 2023-07-31 20:17 | External Medical Summary | Summary of Care ---
Author Name Unknown Organization [place] [address] Care Team Providers Care Barrel Roller Name Role Phone James Maria Primary Care Provider Reason for Visit * Reason Onset Date Comments Appointment 03/25/2022 Encounter Details Date Type Department Care Team Description 03/25/2022 Telephone [facility] [place], [place] [address] [place] [address] Services, Scheduling [address] [place] [address] Appointment Allergies Active Allergy Reactions Severity Noted Date Comments Lisinopril Edema face/lips/tongue High 04/05/2018 documented as of this encounter (statuses as of 03/25/2022) Medications Medication Sig Dispensed Refills Start Date [...] 3 08/24/2017 Active Blood Glucose Monitoring Suppl (oDesk) w/Device KITIndications:Type 2 diabetes mellitus with hemoglobin [...] goal of less than 8.0% ([facility]) Use up to 4 x [...] 12/27/2021 Active FreeStyle Rose Marie 2 [place] Device Test blood sugars four times daily 1 Each 0 12/27/2021 Active Lantus SoloStar 100 UNIT/ML Subcutaneous Solution Pen-injector (Insulin Glargine)Indications :Type 2 diabetes mellitus with hemoglobin A1c goal of less than 8.0% (HCC) Inject under the skin 15 Units before bedtime. 15 mL 3 01/06/2022 Active Additional Information Patient taking differently: 20 Units Subcutaneous QHS, Reported on 03/18/2022 Pen [place] 32G X 4 MMIndications:Type 2 diabetes mellitus [...] as of this encounter (statuses as of 03/25/2022) Active Problems Problem Noted Date Hoarding behavior 03/20/2022 Paroxysmal atrial fibrillation 2 Moderate aortic stenosis 03/20/2022 Wound of right leg 03/20/2022 Diabetic ulcer of toe of rig ht foot associated with type 2 diabetes mellitus, with fat layer exposed 01/09/2022 Atherosclerosis of [place] coronary arter y without angina pectoris [...] as of this encounter (statuses as of 03/25/2022) Resolved Problems Problem Noted Date Resolved Date [...] as of this encounter (statuses as of 03/25/2022) Immunizations Name Administration Dates Next Due COVID-19 [...] Miscellaneous Notes * Telephone Encounter - MICHEL Carter - 03/25/2022 11:23 AM EDT Per request, sched return telemed for 04/18 at 130pm, spouse aware and agreeable documented in this encounter Plan of Treatment Upcoming Encounters Date Type Specialty Care Team Description 04/01/2022 Home Visit Family Medicine Sara Recinos, Community Health Person Investigator [address] [place] [address] 04/15/2022 Home Visit [facility] Rica Taylor RN [address] [facility] [place] [address] 04/18/2022 Telemedicine [facility] Wendy Cisneros CRNP [address] [facility] [place] [address] Sara Recinos, Community Health Person Investigator [address] [place] [address] 06/02/2022 Office Visit Cardiology Del Díaz Jr., [address] [place] [address] 06/04/2022 Office Visit Podiatry Kylie Burroughs DPM [address] [facility] [place] [address] 06/04/2022 Office Visit Family Medicine James Maria DO [address] [place] [address] 06/18/2022 Office Visit Pharmacy [facility] Erica [address] [place] [address] Scheduled Procedures Name Priority Associated Diagnoses Date/Ti [...] Documents on File Type Date Recorded Patient Riding Teacher Expl 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 Directive Advanced Directive Advanced Directive Care Teams Barrel Roller Relationship Specialty Start Date End Date James Maria, [address] [facility] [place] [address] PCP - General Family Medicine 06/07/18 documented as of this encounter
--- OUTSIDE RECORDS SUMMARY | 2023-07-31 20:17 | External Medical Summary | Summary of Care ---
Author Name Unknown Organization [place] [address] Care Team Providers Care Section Leader And Machine Setter Name Role Phone James Maria Primary Care Provider Reason for Visit * Reason Comments [facility]: Maintenance Encounter Details Date Type Department Care Team Description 04/01/2022 Home Visit Care Coordination [address] [place] [address] Sara Recinos, Community [facility] Library Media Assistant [address] [place] [address] Allergies Active Allergy Reactions Severity Noted Date Comments Lisinopril Edema face/lips/tongue High 04/05/2018 documented as of this encounter (statuses as of 04/01/2022) Medications Medication Sig Dispensed Refills Start Date [...] 5 Tab 6 08/24/2017 Active Glucose Blood (TRAN.SL) STRP Use up to 4 times a day E11.9 300 Strip 3 08/24/2017 Active Blood Glucose Monitoring Suppl (TRAN.SL) w/Device KITIndications:Type 2 diabetes mellitus with hemoglobin A1c goal of 7.0%-8.0% ([facility]) Use as directed. Recommend check [...] A1c goal of less than 8.0% ([facility]) Use up to 4 x [...] 11 12/27/2021 Active FreeStyle Rose Marie 2 [place] Device Test blood sugars four times daily 1 Each 0 12/27/2021 Active Lantus SoloStar 100 UNIT/ML Subcutaneous Solution Pen-injector (Insulin Glargine)Indications :Type 2 diabetes mellitus with hemoglobin A1c goal of less than 8.0% (HCC) Inject under the skin 15 Units before bedtime. 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 [...] as of this encounter (statuses as of 04/01/2022) Immunizations Name Administration Dates Next Due COVID-19 [...] Sign Reading Time Taken Comments Blood Pressure 124/60 04/01/2022 10:56 AM EDT Pulse 80 04/01/2022 10:56 AM EDT Temperature 36.9 C (98.4 F) 04/01/2022 10:56 AM E DT Respiratory Rate - - Oxygen Saturation 93% 04/01/2022 10:56 AM EDT Inhaled Oxygen Concentration - - Weight - - Height - - Body Mass Index - - documented in this encounter Progress Notes * Sara Recinos, [facility] Health Library Media Assistant - 04/01/2022 9:48 AM EDT Images from the original note were not included. Community Health Library Media Assistant Visit Date: 04/01/2022 Time: 9:48 AM Name: Selvin Sebastian : 1945 Referral Source: group program manager Source of Information: Patient Spoken language: [place] Patient can read in Burmese: Yes. Strategic Sourcing Consultant needed: No. COVID-19 screening completed: Yes Vitals: Vital signs completed: Yes, vital signs within normal range. BP 124/60 | Pulse 80 | Temp 36.9 C (98.4 F) | SpO2 93% Condition Changes: Changes in health or social status since last visit: no The patient has new concerns since last visit: No Progress towards goals since last visit: His is checking his BS when the meter has the correct day/time. Medications: Medication review completed? No, Does the patient have barriers to medication adherence? No. Patient reports difficulty paying for medications or might in the future: No. Telehealth: This is a telehealth visit: No. Symptoms Surveys and Evaluations: [facility]10 completed this visit: Yes. Score is 4 or more? Yes, notified Provider/Cell Feed Department Supervisor Last flowsheet values for [facility]: Age 65+: 1 (04/01/2022 9:00 AM) Diagnosis (3 or more co-existing): 1 (04/01/2022 9:00 AM) Prior history of falls within 3 months: 1 (04/01/2022 9:00 AM) Incontinence: 0 (04/01/2022 9:00 AM) Visual impairment: 0 (04/01/2022 9:00 AM) Impaired functional mobility: 1 (04/01/2022 9:00 AM) Environmental hazards: 0 (04/01/2022 9:00 AM) Poly Pharmacy (4 or more prescriptions - any type): 1 (04/01/2022 9:00 AM) Pain affecting level of function: 0 (04/01/2022 9:00 AM) Cognitive impairment: 1 (04/01/2022 9:00 AM) Score - a score of 4 or more is considered at risk for fallin (04/01/2022 9:00 AM) Heart Failure Checklist A "good day" for the patient looks like every day Today is different than a "good day": no Patient describes sleep as good Normal The patient has been asked to track the amount of fluid they drink: No. There is an AMC scale in the home: No. Typically, the patient's meals look like Patient's food choices are lower in sodium. Home Safety Does member identify any safety issues related to entering or exiting their home? No Does the patient need a wheelchair ramp to access the home? No Snow/ice removal assistance available? Yes Is there adequate lighting? Yes Are there railings on stairs? No Do sidewalks appear to be in good [...] a medical alert or phone near patient? No Are walkways clear and well lit? Yes Does member identify any safety issues related to utilizing or accessing the bathroom in their home? No Does bathroom have grab bars needed? Yes The patient reports needing help getting on and off the toilet? No Does the patient report needing help bathing? No Are there any other identified issues/needs? No. If yes specify: Social Determinants of Health: Safety: o Patient reports feeling unsafe in their home: No. Housing: o Patient reports they are at risk of becoming homeless: No. Home/Living situation: o Patient lives alone: No, with sister and family members o Bathroom is located 1 o Bedroom is locateed 1 o Patient has to go up and down steps: No. Patient receives help from family/friends/neighbors/community agencies etc.: Yes. Type of help the patient receives: helping him hear and if needed getting food and RX. Patient perceives the help they receive as adequate: o Yes. DME: o DME used: Walker and Shower chair o Patient has concerns related [...] isolated from those around you? Never. Plan: Reinforced patient's three red flags by the care team 1. Fall with injury 2. Improve BS 3. Wound healing He states the wound is looking better. Spouse changes the bandage. When ARABELLA arrived the pt was having trouble with his Rose Marie. He stated the date, time and year changed for some reason and he lose his BS readings. We called company and fixed the settings and his BS was #150. He states he has fallen a few times and just get scraped up. ARABELLA communicated with White board with the patient. Follow Up: Patient encouraged to call the intake phone number for all urgent but not emergent issues. Scheduled to follow up with patient with tele-med on 04-18-22. Sara Recinos [facility] Health Library Media Assistant 04/01/2022 9:48 AM documented in this encounter Plan of Treatment Upcoming Encounters Date Type Specialty Care Team Description 04/15/2022 Home Visit [facility] Rica Taylor RN [address] [address] 04/18/2022 Telemedicine [facility] Wendy Cisneros CRNP [address] [address] Sara Recinos, [facility] Health Library Media Assistant [address] [place] [address] 06/02/2022 Office Visit Cardiology Del Díaz Jr., DO [address] [address] 06/04/2022 Office Visit Podiatry Kylie Burroughs DPM [address] [place] [address] 06/04/2022 Office Visit Family Medicine James Maria DO [address] [address] 06/18/2022 Office Visit Pharmacy Anatoly Vogel [address] [address] Scheduled Procedures Name Priority Associated Diagnoses Date/Ti [...] Documents on File Type Date Recorded Patient Learning Support Services Director Expl 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 Directive Advanced Directive Advanced Directive Care Teams Section Leader And Machine Setter Relationship Specialty Start Date End Date James Maria DO [address] [facility] [place] [address] PCP - General Family Medicine 06/07/18 documented as of this encounter
--- OUTSIDE RECORDS SUMMARY | 2023-07-31 20:17 | External Medical Summary | Summary of Care ---
Author Name Unknown Organization [place] [address] Care Team Providers Care Soft Shoe Dancer Name Role Phone James Maria Primary Care Provider Reason for Visit * Reason Onset Date Comments [facility]: Maintenance 04/14/2022 Encounter Details Date Type Department Care Team Description 04/14/2022 Telephone [facility], [facility] [address] [place] [address] Services, Scheduling [address] [place] [address] [facility]: Maintenance Allergies Active Allergy Reactions Severity Noted Date Comments Lisinopril Edema face/lips/tongue High 04/05/2018 documented as of this encounter (statuses as of 04/14/2022) Medications Medication Sig Dispensed Refills Start Date End Date Status Blood Glucose Monitoring Suppl (ONETONimbuzz ULTRA SYSTEM) W/DEVICE KIT Use as directed [...] 5 Tab 6 08/24/2017 Active Glucose Blood (ONEironSourceUCH VERdMetrics) STRP Use up to 4 times a day E11.9 300 Strip 3 08/24/2017 Active Blood Glucose Monitoring Suppl (BookMyForex.com) w/Device KITIndications:Type 2 diabetes mellitus with hemoglobin A1c goal of 7.0%-8.0% ([facility]) Use as directed. Recommend check glucose [...] goal of less than 8.0% ([facility]) Use up to 4 x a [...] Each 12/27/2021 Active FreeStyle Rose Marie 2 [place] Device Test blood sugars four times daily 1 Each 0 12/27/2021 Active Lantus SoloStar 100 UNIT/ML Subcutaneous Solution Pen-injector (Insulin Glargine)Indication s:Type 2 diabetes mellitus with hemoglobin A1c goal of less than 8.0% (HCC) Inject under the skin 15 Units before bedtime. 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 Scheduled 04/15/22 at 11:30am MICHEL Bonilla documented in this encounter Plan of Treatment Upcoming Encounters Date Type Specialty Care Team Description 04/15/2022 [facility] Visit [facility] Fr[facility]C [address] [facility] [place] [id number] 04/18/2022 Telemedicine [facility] Wendy Cisneros CRNP [address] [facility] [place] [address] Sara Recinos, Community Health Director Of Public Works [address] [place] [address] 06/02/2022 Office Visit Cardiology Del Díaz Jr., DO [address] [place] [address] 06/04/2022 Office Visit [facility] [address] [facility] [address] 06/04/2022 Office Visit Family Medicine James Maria, [address] [place] [address] 06/18/2022 Office Visit Pharmacy [facility] Nick [address] [place] [address] Scheduled Procedures Name Priority Associated Diagnoses Date/Ti [...] on File Type Date Recorded Patient Assistant Front End Manager Expl 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 Directive Advanced Directive Advanced Directive Care Teams Soft Shoe Dancer Relationship Specialty Start Date End Date James Maria, [address] [facility] [place] [address] PCP - General Family Medicine 06/07/18 documented as of this encounter
--- OUTSIDE RECORDS SUMMARY | 2023-07-31 20:17 | External Medical Summary | Summary of Care ---
Author Name Unknown Organization [place] [address] Care Team Providers Care Billboard Installer Name Role Phone James Maria Primary Care Provider Reason for Visit * Reason Onset Date Comments Appointment 03/19/2022 Encounter Details Date Type Department Care Team Description 03/19/2022 Telephone [facility], [facility] [address] [facility] [place] [address] Services, Scheduling [address] [place] [address] Appointment Allergies Active Allergy Reactions Severity Noted [...] 3 08/24/2017 Active Blood Glucose Monitoring Suppl (Lumaqco) w/Device KITIndications:Type 2 diabetes mellitus with hemoglobin [...] hemoglobin A1c goal of less than 8.0% ([facility]) Use up to 4 x a day [...] 11 12/27/2021 Active FreeStyle Rose Marie 2 [place] Device Test blood sugars four times daily 1 Each 0 12/27/2021 Active Lantus SoloStar 100 UNIT/ML Subcutaneous Solution Pen-injector (Insulin Glargine)Indications :Type 2 diabetes mellitus with hemoglobin A1c goal of less than 8.0% (HCC) Inject under the skin 15 Units before bedtime. 15 mL 3 01/06/2022 Active Additional Information Patient taking differently: 20 Units Subcutaneous QHS, Reported on 03/18/2022 Pen [place] 32G X 4 MMIndications:Type 2 diabetes [...] with fat layer exposed 01/09/2022 Atherosclerosis of [place] coronary arter y without angina pectoris 01/09/2022 [...] * Telephone Encounter - MICHEL Alexander - 03/19/2022 12:39 PM EDT Request was completed. Attempted to call pts twice, no answer. I reached out to sister Jennifer who he is staying with. She will relay message to brother. TT ARABELLA Doyle regarding appt for tomorrow. FYI pts staying with sister [address] [place] [address]. documented in this encounter Plan of Treatment Upcoming Encounters Date Type Specialty Care Team Description 03/20/2022 Telemedicine [facility] [place] [address] [place], [place] [address] [address] Yanira Veras, Community Health Tack Coverer [address] [place] [address] [place] [address] 04/01/2022 Home Visit Family Medicine Sara Recinos, [facility] Health Tack Coverer [address] [place] [address] 04/15/2022 Home Visit [facility] Rica Taylor, RN [address] [address] 06/02/2022 Office Visit Cardiology Del Díaz Jr., DO [address] [address] 06/04/2022 Office Visit Podiatry Kylie Burroughs DPM [address] [place] [address] [place] [address] 06/04/2022 Office Visit Family Medicine James Maria DO [address] [address] 06/18/2022 Office Visit Pharmacy Vogel [facility]a [address] [facility] [place] [address] Scheduled Procedures Name Priority Associated Diagnoses Date/Ti [...] Documents on File Type Date Recorded Patient Spray Dyer Expl anation Advanced Directive service a hi [...] Directive Advanced Directive Advanced Directive Care Teams Billboard Installer Relationship Specialty Start Date End Date James Maria DO [address] [facility] [place] [address] PCP - General Family Medicine 06/07/18 documented as of this encounter
--- OUTSIDE RECORDS SUMMARY | 2023-07-31 20:17 | External Medical Summary | Summary of Care ---
Author Name Unknown Organization [place] [address] Care Team Providers Care Analytics Analyst Name Role Phone James Maria Primary Care Provider Reason for Referral * Evaluate & Treat - Unlimited Visits (Within 3 days (urgent)) - Authorized Specialty Diagnoses / Procedures Referred By Collin leigh Referred To Contact HOME CARE / Home Care Diagnoses Wound of right lower extremity, initial encounter Pantera Ybarra MD [address] [place] [address] Referral ID Status Reason Start Date Expiration Date Visits Requested Visits Authorized Authorized Specialty Services Required 03/20/2022 999 999 Question Answer Referral Priority Within 3 days (urgent) Comments Documentation of Mqxk-pi-Yufi Encounter Addendum Patient Name: [place] Sebastian I certify that this patient is under my care and that I, or a nurse practitioner or physician's prosthetic assistant working with me, had a osas-sv-fard encounter that meets the physician dryd-hk-wosl encounter requirements with this patient on: 03/20/22 The encounter with the patient was in whole, or in part, for the following medical condition, which is the primary reason for home health care (List medical condition): Wound care I certify that, based on my findings, the following services are medically necessary home health services: Nursing To provide the following care/treatments: (All hospitalists not following the patient after discharge should complete this section): Primary Care Physician to follow home care plan of care after discharge: Pantera Sneed MD My clinical findings support the need for the above services because: patient has wound R leg. Needs wound care. Going to clinic is taxing to patient and family. Further, I certify that my clinical findings support that this patient is homebound (i.e. Absences from home require considerable and taxing effort and are for medical reasons or sabianist services or infrequently or of short duration when for other reason) because: As above Physician Signature: Date of Signature: Physician Printed Name: Pantera Sneed MD Reason for Visit * Reason Comments [facility]: Acute Encounter Details Date Type Department Care Team Description 03/20/2022 Telemedicine [facility], [place] [address] [place] [address] [address] Pantera Ybarra MD [address] [place] [address] Yanira eVras, Community Health Computer Technical Specialist [address] [place] [address] [place] [address] Wound of right lower extremity, initial encounter*; Paroxysmal atrial fibrillation (HCC); Moderate aortic stenosis Allergies Active Allergy Reactions Severity Noted Date Comments Lisinopril Edema face/lips/tongue High 04/05/2018 documented as of this encounter (statuses as of 03/20/2022) Medications Medication Sig Dispensed Refills Start Date End Date Status Blood Glucose Monitoring Suppl (Likeastore ULTRA SYSTEM) W/DEVICE KIT Use as directed [...] 5 Tab 6 08/24/2017 Active Glucose Blood (SpringshotTOUCH VERIO) STRP Use up to 4 times a day E11.9 300 Strip 3 08/24/2017 Active Blood Glucose Monitoring Suppl (SpringshotTOUCH VERIO) w/Device KITIndications:Type 2 diabetes mellitus with [...] 11 12/27/2021 Active FreeStyle Rose Marie 2 [place] Device Test blood sugars four times daily 1 Each 0 12/27/2021 Active Lantus SoloStar 100 UNIT/ML Subcutaneous Solution Pen-injector (Insulin Glargine)Indications :Type 2 diabetes mellitus with hemoglobin A1c goal of less than 8.0% (HCC) Inject under the skin 15 Units before bedtime. 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 01/09/2022 [...] as of this encounter (statuses as of 03/20/2022) Resolved Problems Problem Noted Date Resolved Date [...] as of this encounter (statuses as of 03/20/2022) Immunizations Name Administration Dates Next Due COVID-19 [...] Sign Reading Time Taken Comments Blood Pressure 128/74 03/20/2022 1:26 PM EDT Pulse 54 03/20/2022 1:26 PM EDT Temperature 37.6 C (99.7 F) 03/20/2022 1:26 PM ED T Respiratory Rate 18 03/20/2022 1:26 PM EDT Oxygen Saturation 92% 03/20/2022 1:26 PM EDT Inhaled Oxygen Concentration - - Weight - - Height - - Body Mass Index - - documented in this encounter Progress Notes * Yanira Veras [facility] Health Computer Technical Specialist - 03/20/2022 1:36 PM EDT Images from the original note were not included. Community Health Computer Technical Specialist Visit Date: 03/20/2022 Time: 1:37 PM Name: [place] Sebastian : 1945 Referral Source: manager drilling Source of Information: Patient and , Farhana Spoken language: Kuwaiti Patient can read in Kuwaiti: Yes. Fraud Analyst needed: No. COVID-19 screening completed: Yes Vitals: Vital signs completed: Yes, vital signs within normal range. BP 128/74 | Pulse 54 | Temp 37.6 C (99.7 F) | Resp 18 | SpO2 92% Condition Changes: Changes in health or social status since last visit: Patient being seen for telehealth visit re: home health referral. The patient has new concerns since last visit: Yes, open area to RLE. Has been applying silver sulfadiazine cream - had been ordered previously by Dr. Frias for toe wound, which has since healed. Progress towards goals since last visit: Not [...] Score is 4 or more? Yes, notified Provider/Spring Manufacturing Set Up Technician [facility]: Age 65+: 1 (03/06/2022 9:00 AM) Diagnosis (3 or more co-existing): 1 (03/06/2022 9:00 AM) Prior history of falls within 3 months: 1 (03/06/2022 9:00 AM) Incontinence: 0 (03/06/2022 9:00 AM) Visual impairment: 0 (03/06/2022 9:00 AM) Impaired functional mobility: 0 (03/06/2022 9:00 AM) Environmental hazards: 0 (03/06/2022 9:00 AM) Poly Pharmacy (4 or more prescriptions - any type): 1 (03/06/2022 9:00 AM) Pain affecting level of function: 1 (03/06/2022 9:00 AM) Cognitive impairment: 1 (03/06/2022 9:00 AM) Score - a score of 4 or more is considered at risk for fallin (03/06/2022 9:00 AM) Social Determinants of Health: Safety: o Patient [...] with patient in PRN. Afua Mccarthy Health Computer Technical Specialist 03/20/2022 1:37 PM * Pantera Enrique MD - 03/20/2022 1:00 PM EDT Images from the original note were not included. [facility] Tele[facility] Visit Date: 03/20/2022 Plan/Discussion: Selvin was seen today by tele medicine. He has a wound R leg, which he probably sustained after a fall last week. He is hearing impaired , and it is not clear how he fell. He denies dizziness. Exam showed good blood pressure with no orthostatic changes. Wound is 2 x 1 cm 3 mm deep.mild erythema with no tenderness. Redness improved significantly over the last two days after applying silvadene cream. Advised to continue cleaning the wound with baby tram shampoo , dry, then apply silvadene cream daily. I placed a request for home health for wound care. Patient is home bound and going to physician office is taxing to him and family. Diagnosis and Associated Orders: ICD-10-CM 1. Wound of right lower extremity, initial encounter S81.801A 2. Paroxysmal atrial fibrillation (HCC) rhythm is regular . Metoprolol for rate control Eliquis 5 mg twice a day I48.0 3. Moderate aortic stenosis No reported anginal pain Fluid status is euvolemic I35.0 Plan Home Health Referral OP HPI: Patient location: HOME. I was not in a hospital or clinic location. After connecting through [employer], patient was verified with two unique identifiers. Patient (or authorized legal sales development representative) was then informed that this was a Telemedicine visit and being conducted confidentially over secure lines. Methods to assure confidentiality were taken. Patient acknowledged consent and understanding of privacy and security of the Telemedicine visit. The patient agreed to participate. Telehealth visit type: Yes, Acute What accessories are you using? Stethoscope Was there a change to the patient's care plan? Yes, Specialty referral [place] is a 76 year old male seen in his home for a [facility] telemedicine provider visit. Patient is seen today for face to face visit for home health. Mr. 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 He has difficulty hearing . Communication was facilitated by his . He told W that he fell a week ago. He attributed the fall to poor balance. He denies feeling dizzy with standing. Blood pressure is 128/74. He was noted to have an ulceration R leg on 03/18/22. has been putting sulfadiazine cream. Photos from 03/18/22 showed an ulceration 2 x 1 cm 3 mm deep with surrounding erythema. Follow up photo from today , showed improved erythema. ROS: Review of Systems Constitutional: Negative for chills and fever. Respiratory: Negative for cough and shortness of breath. Cardiovascular: Positive for leg swelling. Negative for chest pain. Mild bilateral leg swelling Genitourinary: Negative for difficulty urinating and dysuria. Neurological: Negative for dizziness. Psychiatric/Behavioral: Negative for agitation. Physical Exam (performed by prosthetic assistant in the patient's home and limited to available telehealth tools): BP 128/74 | Pulse 54 | Temp 37.6 C (99.7 F) | Resp 18 | SpO2 92% Physical Exam Constitutional: General: He is not in acute distress. Appearance: He is not ill-appearing, toxic-appearing or diaphoretic. Comments: Difficulty of hearing Cardiovascular: Rate and Rhythm: Normal rate and regular rhythm. Heart sounds: Murmur heard. Comments: 2/6 systolic murmur Pulmonary: Effort: Pulmonary effort is normal. No respiratory distress. Breath sounds: No wheezing or rales. Musculoskeletal: Comments: + 1 bilateral leg edema Skin: Coloration: Skin is not jaundiced or pale. Comments: Wound R leg 2 x 1 cm 2 mm deep No discharge Mild erythema with no skin tenderness Neurological: Mental Status: He is alert and oriented to person, place, and time. Psychiatric: Mood and Affect: Mood normal. MD [facility] 3:03 PM documented in this encounter Plan of Treatment Upcoming Encounters Date Type Specialty Care Team Description 04/01/2022 Home Visit Family Medicine Sara Recinos, Community Health Computer Technical Specialist [address] [place] [address] 04/15/2022 [facility] Visit [facility] Rica Taylor RN [address] [facility] [place] [address] 06/02/2022 Office Visit Cardiology Del Díaz Jr., DO 132 [facility] [place] [address] 06/04/2022 Office Visit Podiatry Kylie Burroughs DPM [address] [facility] [place] [address] 06/04/2022 Office Visit Family Medicine James Maria DO [address] [place] [address] 06/18/2022 Office Visit Pharmacy [facility] Erica [address] [place] [address] Scheduled Procedures Name Priority Associated Diagnoses Date/Ti me COLONOSCOPY FLEXIBLE PROXIMA L DIAGNOSTIC Recall Encounter for screening colonoscopy Scheduled Referrals Name Type Priority Associated Diagnoses Orde r Schedule HOME HEALTH REFERRAL OP Referral Within 3 days (urgent) Wound of right lower extremity, initial encounter Ordered: 03/20/2022 Health Maintenance Due Date Last Done Comments [...] as of this encounter Visit Diagnoses Diagnosis Wound of right lower extremity, initial encounter- Primary Paroxysmal atrial fibrillation (HCC) Atrial fibrillation Moderate aortic stenosis Aortic valve disorders documented in this encounter Advance Directives Documents on File Type Date Recorded 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
--- OUTSIDE RECORDS SUMMARY | 2023-07-31 20:18 | External Medical Summary | Summary of Care ---
Author Name Unknown Organization [place] [address] Care Team Providers Care Chemist Helper Name Role Phone James Maria Primary Care Provider Reason for Visit * Reason Comments Nutritional Services Documentation Encounter Details Date Type Department Care Team Description 03/13/2022 Nutrition Services Nutrition, [facility] 132 [facility] [place] [address] Dinah Mohamud RDN 132 [facility] [place] [address] Arrived Allergies Active Allergy Reactions Severity Noted Date Comments Lisinopril Edema face/lips/tongue High 04/05/2018 documented as of this encounter (statuses as of 03/13/2022) Medications Medication Sig Dispensed Refills Start Date End Date Status Blood Glucose Monitoring Suppl (Semantics3TOUCH ULTRA SYSTEM) W/DEVICE KIT Use as directed [...] 5 Tab 6 08/24/2017 Active Glucose Blood (Semantics3TOUCH VERDealCurious) STRP Use up to 4 times a day E11.9 300 Strip 3 08/24/2017 Active Blood Glucose Monitoring Suppl ([employer]) w/Device KITIndications:Type 2 diabetes mellitus with hemoglobin A1c goal of 7.0%-8.0% ([facility]) Use as directed. Recommend check [...] 11 12/27/2021 Active FreeStyle Rose Marie 2 [place] Device Test blood sugars four times daily 1 Each 0 12/27/2021 Active Lantus SoloStar 100 UNIT/ML Subcutaneous Solution Pen-injector (Insulin Glargine)Indications :Type 2 diabetes mellitus with hemoglobin A1c goal of less than 8.0% (HCC) Inject under the skin 15 Units before bedtime. 15 mL 3 01/06/2022 Active Pen [place] 32G X 4 MMIndications:Type 2 diabetes mellitus [...] as of this encounter (statuses as of 03/13/2022) Active Problems Problem Noted Date Diabetic ulcer [...] as of this encounter (statuses as of 03/13/2022) Resolved Problems Problem Noted Date Resolved Date [...] as of this encounter (statuses as of 03/13/2022) Immunizations Name Administration Dates Next Due COVID-19 [...] Progress Notes * Dinah Mohamud RDN - 03/13/2022 1:42 PM EDT Attempted to contact pt and to follow-up from diabetes visit of February 25. Patient called me back. States he is still having problems with his CGM. States one fell out and another one was ordered but states he can have no more than 2 per month. States his glucose levels have occasionally beenlow [id number]. States he treated these by drinking soda. States his rechecks following these l evels were about the same. Was told he is receiving "false readings." No issues with obtaining insulin or diabetes supplies noted. Will forward information to pt regarding adhesive he can use to helpCGM stick better. Told him to be sure CGM sensor is not placed on an area with a skin impairment-mole, ulcer, etc or on top of hair on arms. Patient had appointment with [facility] nurse earlier today. Continue to monitor pt's diabetes regimen. Dinah Mohamud RDN [facility] [place], [place] Available via Sal[employer] Text documented in this encounter Plan of Treatment Upcoming Encounters Date Type Specialty Care Team Description 03/17/2022 Office Visit Pharmacy [facility] Erica [address] [place] [address] 03/18/2022 Home Visit [facility] Rica Taylor RN [address] [address] [address] 06/02/2022 Office Visit Cardiology eDl Díaz Jr., DO [address] [address] 06/04/2022 Office Visit Podiatry Kylie Burroughs DPM [address] [place] [address] 06/04/2022 Office Visit Family Medicine James Maria, [address] [address] Scheduled Procedures Name Priority Associated Diagnoses Date/Ti [...] Documents on File Type Date Recorded Patient Injection Machine 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
--- OUTSIDE RECORDS SUMMARY | 2023-07-31 20:18 | External Medical Summary | Summary of Care ---
Author Name Unknown Organization [place] [address] Care Team Providers Care Air Conditioning Supervisor Name Role Phone James Maria Primary Care Provider Reason for Visit * Reason Comments [facility]: Maintenance Encounter Details Date Type Department Care Team Description 03/18/2022 Home Visit [facility], [facility] 132 [facility] [place] [address] Rica Taylor, RN 132 [facility] [place] [address] Allergies Active Allergy Reactions Severity Noted Date Comments Lisinopril Edema face/lips/tongue High 04/05/2018 documented as of this encounter (statuses as of 03/19/2022) Medications Medication Sig Dispensed Refills Start Date End Date Status Blood Glucose Monitoring Suppl (O2 IrelandTOUCH ULTRA SYSTEM) W/DEVICE KIT Use as directed [...] 5 Tab 6 08/24/2017 Active Glucose Blood (O2 IrelandTOUCH VERGenterpret) STRP Use up to 4 times a day E11.9 300 Strip 3 08/24/2017 Active Blood Glucose Monitoring Suppl (J[employer]ong.[employer]) w/Device KITIndications:Type 2 diabetes mellitus with hemoglobin [...] 12/27/2021 Active FreeStyle Rose Marie 2 [place] Device Test blood sugars four times daily 1 Each 0 12/27/2021 Active Lantus SoloStar 100 UNIT/ML Subcutaneous Solution Pen-injector (Insulin Glargine)Indications :Type 2 diabetes mellitus with hemoglobin A1c goal of less than 8.0% (HCC) Inject under the skin 15 Units before bedtime. 15 mL 3 01/06/2022 Active Additional Information Patient taking differently: 20 Units Subcutaneous QHS, Reported on 03/18/2022 Pen [place] 32G X 4 MMIndications:Type 2 diabetes mellitus [...] with fat layer exposed 01/09/2022 Atherosclerosis of tolowa dee-ni' coronary arter y without angina pectoris 01/09/2022 [...] Sign Reading Time Taken Comments Blood Pressure 118/64 03/18/2022 9:58 AM EDT Pulse 60 03/18/2022 9:58 AM EDT Temperature - - Respiratory Rate 18 03/18/2022 9:58 AM EDT Oxygen Saturation 95% 03/18/2022 9:58 AM EDT Inhaled Oxygen Concentration - - Weight - - Height - - Body Mass Index - - documented in this encounter Progress Notes * Rica Taylor RN - 03/18/2022 9:51 AM EDT Images from the original note were not included. [facility] Visit Date: 03/18/2022 Time: 9:51 AM Name: Selvin Sebastian : 1945 Current Concerns: Pt seen for return RNCM visit Pt reports he has not been using freestyle rose marie - both sensors he had placed had fallen out and hecannot find the last one that fell off. Pt needs refills - will message Nerveda for assist with this Pt reports he does not check via fingerstick because fingers are too sore Last sugar reading was 5/9 and it was 125, per monitor log has been completing wound care of RLE LLE healed Physical Exam: BP 118/64 | Pulse 60 | Resp 18 | SpO2 95% Pain 6 Physical Exam Constitutional: General: He is not in acute distress. Cardiovascular: Rate and Rhythm: Normal rate and regular rhythm. Pulses: Normal pulses. Heart sounds: Normal heart sounds. Pulmonary: Effort: Pulmonary effort is normal. Breath sounds: Normal breath sounds. Abdominal: General: Bowel sounds are normal. Palpations: Abdomen is soft. Musculoskeletal: Right lower leg: Edema (+1) present. Left lower leg: Edema (+1) present. Skin: General: Skin is warm and dry. Neurological: Mental Status: He is alert and oriented to person, place, and time. Problems/Symptoms: Review of Systems Constitutional: Negative. HENT: Negative. Eyes: Negative. Respiratory: Negative. Cardiovascular: Positive for leg swelling. Gastrointestinal: Negative. Endocrine: Negative. Genitourinary: Negative. Musculoskeletal: Positive for arthralgias. Skin: Positive for wound. Neurological: Negative. Psychiatric/Behavioral: Negative. Medication Reconciliation: (See medication list) Does patient take medications as ordered: Yes Patient Well Being: PHQ2/9: About Me Question 03/13/2022 12:01 PM EDT - Filed by Patient Demographics Section: I identify my ethnicity as: Not or I identify my race as: White My preferred language is: Greek I need an combined rail operator to communicate with you: I identify my gender as: Male My pronouns are: he/him/his My sex assigned at and orginally recorded on my certificate was: Male My sexual orientation is: Straight (not lesbian or gallego) Have you ever served in the ? Never Served (Not a ) Myc Visit Accident Related Question Question 03/13/2022 12:01 PM EDT - Filed by Patient Is this visit related to an accident? (i.e work, motor vehicle) No No change in living situation Denies falls since last visit [facility] Completed this Visit: No. Routine visit and No falls since last visit Advanced Care Planning: No documentation, difficulty to do with pt d/t hearing impaired - will need present to discussACP. Patient's Goals of Care: 1. Improved bsgs 2. Wound healing Reinforcement/Education: DIABETES: -Blood sugar testing schedule: Twice [...] Dosing. and Purspose. Treatment/Plan: Continue meds as prescribed Freestyle rose marie for bsg monitoring 4x a day Use fingerstick if Freestyle not working/falls off Tubigrips on in am, off in pm Wound care daily to [facility] Home Health referral for wound management Pt severely [place] - use white board for communication Home Interventions Provided: Home Intervention: Other; Evaluation Consulted PCP/Specialist Reinforced current Plan of Care, including self-management and medication regimen Patient's 'Red Flags': 1. S/s of infection - redness, fever, foul drainage 2. bsg highs and lows, >300 or <70 3. Redness of LE r/t cellulitis Patient Needs to Remember: Call [facility] at with any new or worsening health concerns or problems, red flag symptoms. Referrals Needed: Home Health Follow Up: Is there cellular connectivity/connectivity in the home? Yes Does the patient have internet in the home? No Patient encouraged to call the intake phone number for all urgent but not emergent issues. Is the patient new to [facility] within the last 30 days? No, Assess appropriateness for upcoming telehealth visits. Cancel telehealth visits & schedule home visit with care count team clerk(s)as indicated. Provider is in agreement with Plan of Care: Yes Scheduled to follow up with patient in 2 weeks with ARABELLA and 2 weeks after with RNCM. Rica Taylor RN 03/18/2022 9:51 AM documented in this encounter Plan of Treatment Upcoming Encounters Date Type Specialty Care Team Description 04/01/2022 Home Visit Family Medicine Sara Recinos, Community Health Hydroelectric Plant Structural Engineer [address] [place] [address] 04/15/2022 Home Visit [facility] Rica Taylor RN [address] [place] [address] 06/02/2022 Office Visit Cardiology Del Díaz Jr., DO [address] [address] 06/04/2022 Office Visit Podiatry Kylie Burroughs DPM [address] [place] [address] 06/04/2022 Office Visit Family Medicine James Maria DO [address] [place] [address] 06/18/2022 Office Visit Pharmacy [facility] Erica [address] [place] [address] Scheduled Procedures Name Priority Associated Diagnoses Date/Ti [...] Documents on File Type Date Recorded Patient Family Service Aide Expl 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 Directive Advanced Directive Care Teams Air Conditioning Supervisor Relationship Specialty Start Date End Date James Maria, 132 [facility] [place] [id number] PCP - General Family Medicine 06/07/18 documented as of this encounter
--- OUTSIDE RECORDS SUMMARY | 2023-07-31 20:18 | External Medical Summary | Summary of Care ---
Author Name Unknown Organization [facility] [address] Care Team Providers Care Research Project Coordinator Name Role Phone James Maria Primary Care Provider Reason for Visit * Reason Onset Date Comments [facility]: Maintenance 03/12/2022 Encounter Details Date Type Department Care Team Description 03/12/2022 Telephone [facility], [facility] 132 [facility] [place] [address] [facility], Nurse [facility] 132 [place] [address] [facility]: Maintenance Allergies Active Allergy [...] 5 Tab 6 08/24/2017 Active Glucose Blood (ICON AircraftTOUCH VERIdeacentric) STRP Use up to 4 times a day E11.9 300 Strip 3 08/24/2017 Active Blood Glucose Monitoring Suppl ([employer]) w/Device KITIndications:Type 2 diabetes mellitus with [...] 11 12/27/2021 Active FreeStyle Rose Marie 2 [place] Device Test blood sugars four times daily 1 Each 0 12/27/2021 Active Lantus SoloStar 100 UNIT/ML Subcutaneous Solution Pen-injector (Insulin Glargine)Indications :Type 2 diabetes mellitus with hemoglobin A1c goal of less than 8.0% (HCC) Inject under the skin 15 Units before bedtime. 15 mL 3 01/06/2022 Active Pen [place] 32G X 4 MMIndications:Type 2 diabetes mellitus [...] Telephone Encounter - Ceferino Davis RPh - 03/13/2022 10:41 AM EDT The DME company was switched to [employer] as there were issues contacting [facility]. Patient's supplies weredelivered by Angie a month ago and no further action needed. Confirmed via [employer]. Ceferino Davis RPh * Telephone Encounter - BARTOLO Bentley - 03/12/2022 5:47 PM EDT Please see pharmacy note grom 4/4ge: F/u freestyle rose marie 2 Supplier was changed to [employer], will f/u on same later in week. Scheduled.4 I believe his supplier changed and this is why the form was not completed. Ceferino/Rosalie--can you confirm? * Telephone Encounter - Sherie Larson RN - 03/12/2022 5:15 PM EDT Yamila Queen from DME company [employer] needing PWO form filled out in its entirety to beable to provide supplies for patients freestyle rose marie. Current form on file under patient files scanned in on 01/28/22 by latoya ahmadi (header: physicians order from [facility] medical) incomplete This form can be edited. Whole form needs to be filled out. Each box need to be checked, initialledby physician and bottom of form signed by physician [facility] has been trying to get this form completed since 12/2021 Will send form to britta parra and care team When complete please fax back to [facility] medical Fax # Ph if needed Sherie Larson RN, BSN [facility] welding testerDragline Engineer documented in this encounter Plan of Treatment Upcoming Encounters Date Type Specialty Care Team Description 03/17/2022 [facility]a [address] [address] 03/18/2022 Home Visit [facility] Rica Taylor RN [address] [address] 06/02/2022 Office Visit Cardiology Del Díaz Jr., DO [address] [address] 06/04/2022 Office Visit Podiatry Kylie Burroughs DPM [address] [facility] [place] [address] 06/04/2022 Office Visit Family Medicine James Maria, [address] [address] Scheduled Procedures Name Priority Associated Diagnoses Date/Ti [...] Documents on File Type Date Recorded Patient Adjunct Professor Of Law Expl anation Advanced Directive service a hi [...] Directive Advanced Directive Advanced Directive Care Teams Research Project Coordinator Relationship Specialty Start Date End Date aJmes Maria DO [address] [address] PCP - General Family Medicine 06/07/18 documented as of this encounter
--- OUTSIDE RECORDS SUMMARY | 2023-07-31 20:18 | External Medical Summary | Summary of Care ---
Author Name Unknown Organization [place] [address] Care Team Providers Care Dopeman Name Role Phone James Maria Primary Care Provider Reason for Visit * Reason Comments Dosage Adjustment In Person (Anticoag Cl inic) Diabetes Follow-Up Encounter Details Date Type Department Care Team Description 03/17/2022 Office Visit Pharmacy, [facility] [address] [facility] [address] Type 2 diabetes mellitus with hemoglobin A1c goal of less than 8.0% ([facility])* Allergies Active Allergy Reactions Severity Noted Date Comments Lisinopril Edema face/lips/tongue High 04/05/2018 documented as of this encounter (statuses as of 03/17/2022) Medications Medication Sig Dispensed Refills Start Date [...] 5 Tab 6 08/24/2017 Active Glucose Blood (GirafficTOUCH VERIO) STRP Use up to 4 times a day E11.9 300 Strip 3 08/24/2017 Active Blood Glucose Monitoring Suppl (PowerPractical VERIO) w/Device KITIndications:Type 2 diabetes mellitus with [...] 11 12/27/2021 Active FreeStyle Rose Marie 2 [place] Device Test blood sugars four times daily 1 Each 0 12/27/2021 Active Lantus SoloStar 100 UNIT/ML Subcutaneous Solution Pen-injector (Insulin Glargine)Indications :Type 2 diabetes mellitus with hemoglobin A1c goal of less than 8.0% (HCC) Inject under the skin 15 Units before bedtime. 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 Medication Therapy Disease [facility] - Diabetes Management Progress Note Selvin Sebastian, identified by name and date of , is a 76 year old male being seen for diabetes management/education. Patient presents for return diabetic visit. DIABETES: Current diabetic medications: STOP: Insulin NPH 70/30 30 units before breakfast and 15 units before dinner START: Lantus 20 units QHS START: Humalog 5 untis with meals-usually just with breakfast Metformin ER 500 mg 2 tabs AM Medication Injection Site: Abdomen Lifestyle: Diet: unchanged Glucose Review/SMBG: Readings obtained from patient device Hypoglycemia: Does your blood sugar go below 70 mg/dL? No Hyperglycemia symptoms present: none Recent Labs Units 02/27/21 1124 HEMOGLOBIN A1C - [facility] % 13.2* Recent Labs Units 11/08/21 0000 02/27/21 1124 06/01/20 1518 ESTIMATED GLOMERULAR FILTRATION RATE - [facility] mL/min -- 72.4 -- EGFR-OUTSIDE LAB ML/MIN 52.0 -- -- CREATININE - [facility] mg/dL -- 1.0 1.1 CREATININE-OUTSIDE LAB MG/DL 1.32 -- -- HYPERTENSION: Patient on ACEi/ARB: no, kidneys BP Readings from Last 3 Encounters: 03/06/22 126/59 02/28/22 130/72 02/11/22 104/60 Blood pressure at goal: yes HYPERLIPIDEMIA: Patient is taking moderate or high intensity statin: yes HEALTH MAINTENANCE REVIEW: Health Maintenance Due Topic Date Due Yearly B-12 11/16/2020 Depression Screening, Annual for Pts 12 and Over 11/21/2020 DIABETES-URINE ALBUMIN/CREATININE EVERY 12 MONTHS 03/13/2021 DIABETES-HGBA1C EVERY 6 MONTHS 08/29/2021 DTaP,Tdap,and Td Vaccines (2 - Td or Tdap) 10/21/2021 DIABETES-FOOT EXAM 02/28/2022 DIABETES-EYE EXAM 03/04/2022 ASSESSMENT & PLAN: No diagnosis found. BG Readings Blood sugars controlled. BG values per rose marie download well controlled. Medications Reviewed current regimen, patient is adherent to regimen. Recommending to continue current medications. Diet, Exercise, Lifestyle No significant lifestyle changes since last visit. Discussed with patient Patient is agreeable to CGM Patient aware [...] Exam: Up to Date Annual Wellness Visit: N/A FOLLOW UP: Return to clinic in 8 weeks Samina Blunt RPh Clinical Pharmacist - Police Officer Booking Medication Therapy Management [facility] 03/17/2022, 1:52 PM documented in this encounter Plan of Treatment Upcoming Encounters Date Type Specialty Care Team Description 03/18/2022 Home Visit [facility] Rica Taylor RN [address] [address] 06/02/2022 Office Visit Cardiology Del Díaz Jr., DO [address] [address] 06/04/2022 Office Visit Podiatry Kylie Burroughs DPM [address] [place] [address] [place] [address] 06/04/2022 Office Visit Family Medicine James Maria DO [address] [address] 06/26/2022 Office Visit Pharmacy [facility] Erica [address] [address] Scheduled Procedures Name Priority Associated Diagnoses Date/Ti [...] Documents on File Type Date Recorded Patient Maintenance Inspector Expl anation Advanced Directive service a hi [...] Directive Advanced Directive Advanced Directive Care Teams Dopeman Relationship Specialty Start Date End Date James Maria, 132 [facility] [place] [address] PCP - General Family Medicine 06/07/18 documented as of this encounter
--- OUTSIDE RECORDS SUMMARY | 2023-07-31 20:18 | External Medical Summary | Summary of Care ---
Author Name Unknown Organization [place] [address] Care Team Providers Care Binding Cutter Synthetic Cloth Name Role Phone James Maria Primary Care Provider Reason for Visit * Reason Onset Date Comments [facility]: Maintenance 03/18/2022 Encounter Details Date Type Department Care Team Description 03/18/2022 Telephone [facility], [facility] [address] [facility] [place] [address] Rica Taylor, RN 132 [facility] [place] [address] [facility]: Maintenance Allergies Active Allergy [...] 5 Tab 6 08/24/2017 Active Glucose Blood (Stars ExpressTOUCH VERIO) STRP Use up to 4 times a day E11.9 300 Strip 3 08/24/2017 Active Blood Glucose Monitoring Suppl (Stars ExpressTOPMG Solutions VERIO) w/Device KITIndications:Type 2 diabetes mellitus with [...] 11 12/27/2021 Active FreeStyle Rose Marie 2 [place] Device Test blood sugars four times daily 1 Each 0 12/27/2021 Active Lantus SoloStar 100 UNIT/ML Subcutaneous Solution Pen-injector (Insulin Glargine)Indications :Type 2 diabetes mellitus with hemoglobin A1c goal of less than 8.0% (HCC) Inject under the skin 15 Units before bedtime. 15 mL 3 01/06/2022 Active Additional Information Patient taking differently: 20 Units Subcutaneous QHS, Reported on 03/18/2022 Pen [place] 32G X 4 MMIndications:Type 2 diabetes mellitus [...] Miscellaneous Notes * Telephone Encounter - BARTOLO Isbell - 03/19/2022 9:16 AM EDT [facility] Remote Medical Command Phone Encounter [facility] Cohort: Focused Care Management (3-9 months) Quick Links: Open wound RLE. Picture reviewed in Epic from 03/18/22 Assessment and Recommendations: Open wound [...] schedule SAME day facilitated telemedicine visit with Provider/ARABELLA BARTOLO Lopez Remote Medical Command - [facility] 03/19/2022 Scheduled appointments in the next 60 days: Future Appointments-next 60 days Date/Time Provider Specialty Dept Phone 04/01/2022 9:30 AM Sara Recinos, [facility] Caramel Cutter Helper Family Medicine [phone] 04/15/2022 10:00 AM Rica Taylor RN [facility] [phone] 06/02/2022 3:00 PM (Arrive by 2:45 PM) Del Díaz Jr., DO Cardiology [phone] 06/04/2022 1:00 PM (Arrive by 12:45 PM) Kylie Burroughs DPM Podiatry [phone] 06/04/2022 1:40 PM (Arrive by 1:25 PM) James Maria, DO Family Medicine [phone] 06/18/2022 2:30 PM [facility] [phone] * Telephone Encounter - Rica Taylor RN - 03/18/2022 3:12 PM EDT Pt needs Home Health referral for wound care of RLE. Per pt and , they do not have a preference on which home health agency. Thank you. documented in this encounter Plan of Treatment Upcoming Encounters Date Type Specialty Care Team Description 04/01/2022 Home Visit Family Medicine Sara Recinos, [facility] Cutter Helper [address] [place] [address] 04/15/2022 Home Visit [facility] Rica Taylor RN [address] [address] 06/02/2022 Office Visit Cardiology Del Díaz Jr., DO [address] [address] 06/04/2022 Office Visit Podiatry Kylie Burroughs DPM [address] [place] [address] 06/04/2022 Office Visit Family Medicine James Maria DO [address] [address] 06/18/2022 Office Visit Pharmacy [facility] [address] [address] Scheduled Procedures Name Priority Associated Diagnoses Date/Ti [...] Documents on File Type Date Recorded Patient Stock Patch Sawyer Expl anation Advanced Directive service a hi [...] Directive Advanced Directive Advanced Directive Care Teams Binding Cutter Synthetic Cloth Relationship Specialty Start Date End Date James Maria DO [address] [address] PCP - General Family Medicine 06/07/18 documented as of this encounter
--- OUTSIDE RECORDS SUMMARY | 2023-07-31 20:18 | External Medical Summary | Summary of Care ---
Author Name Unknown Organization [place] [address] Care Team Providers Care Color Paste Mixer Name Role Phone James Maria Primary Care Provider Reason for Visit * Reason Onset Date Comments [facility]: Maintenance 03/12/2022 Encounter Details Date Type Department Care Team Description 03/12/2022 Telephone [facility], [facility] 132 [facility] [place] [address] [facility], Nurse [facility] [place] [address] [facility]: Maintenance Allergies Active Allergy [...] 5 Tab 6 08/24/2017 Active Glucose Blood ([place] SuperdomeTOUCH VERAnelletti Sic[employer] Street [employer]) STRP Use up to 4 times a day E11.9 300 Strip 3 08/24/2017 Active Blood Glucose Monitoring Suppl ([employer]) w/Device KITIndications:Type 2 diabetes mellitus with hemoglobin [...] 11 12/27/2021 Active FreeStyle Rose Marie 2 [place] Device Test blood sugars four times daily 1 Each 0 12/27/2021 Active Lantus SoloStar 100 UNIT/ML Subcutaneous Solution Pen-injector (Insulin Glargine)Indications :Type 2 diabetes mellitus with hemoglobin A1c goal of less than 8.0% (HCC) Inject under the skin 15 Units before bedtime. 15 mL 3 01/06/2022 Active Pen [place] 32G X 4 MMIndications:Type 2 diabetes mellitus [...] with fat layer exposed 01/09/2022 Atherosclerosis of [place] coronary arter y without angina pectoris 01/09/2022 [...] EDT The DME company was switched to [employer] as there were issues contacting [facility]. Patient's supplies weredelivered by Angie a month ago and no further action needed. Confirmed via [employer]. Ceferino Davis RPh * Telephone Encounter - BARTOLO Bentley - 03/12/2022 5:47 PM EDT Please see pharmacy note grom 4/4ge: F/u freestyle rose marie 2 Supplier was changed to [employer], will f/u on same later in week. Scheduled.4 I believe his supplier changed and this is why the form was not completed. Ceferino/Rosalie--can you confirm? * Telephone Encounter - Sherie Larson RN - 03/12/2022 5:15 PM EDT Yamila Queen from DME company [employer] needing PWO form filled out in its entirety to beable to provide supplies for patients freestyle rose marie. Current form on file under patient files scanned in on 01/28/22 by latoya ahmadi (header: physicians order from [facility] medical) incomplete This form can be edited. Whole form needs to be filled out. Each box need to be checked, initialledby physician and bottom of form signed by physician [facility] has been trying to get this form completed since 12/2021 Will send form to britta parra and care team When complete please fax back to [facility] medical Fax # Ph if needed Sherie Larson RN, BSN [facility] drawbridge operatorCircular Knitter Helper documented in this encounter Plan of Treatment Upcoming Encounters Date Type Specialty Care Team Description 03/17/2022 Office Visit Pharmacy [facility] Erica [address] [address] 03/18/2022 Home Visit [facility] Rica Taylor RN [address] [address] 06/02/2022 Office Visit Cardiology Del Díaz Jr., DO [address] [address] 06/04/2022 Office Visit Podiatry Kylie Burroughs DPM [facility] [place] [address] 06/04/2022 Office Visit Family Medicine James Maria, [address] [address] Scheduled Procedures Name Priority Associated Diagnoses Date/Ti [...] Documents on File Type Date Recorded Patient Video Intern Expl anation Advanced Directive service a hi [...] Directive Advanced Directive Advanced Directive Care Teams Color Paste Mixer Relationship Specialty Start Date End Date James Maria DO [address] [address] PCP - General Family Medicine 06/07/18 documented as of this encounter
--- OUTSIDE RECORDS SUMMARY | 2023-07-31 20:18 | External Medical Summary | Summary of Care ---
Author Name Unknown Organization [place] [address] Care Team Providers Care Flask Maker Name Role Phone James Maria Primary Care Provider Reason for Visit * Reason Onset Date Comments [facility]: Maintenance 03/18/2022 Encounter Details Date Type Department Care Team Description 03/18/2022 Telephone [facility], [facility] 132 [place] [address] Services, Scheduling [address] [place] [address] [facility]: Maintenance Allergies Active Allergy Reactions Severity Noted Date Comments Lisinopril Edema face/lips/tongue High 04/05/2018 documented as of this encounter (statuses as of 03/18/2022) Medications Medication Sig Dispensed Refills Start Date End Date Status Blood Glucose Monitoring Suppl (PlayyOnTOUCH ULTRA SYSTEM) W/DEVICE KIT Use as directed [...] 3 08/24/2017 Active Blood Glucose Monitoring Suppl ([employer]) w/Device KITIndications:Type 2 diabetes mellitus with hemoglobin A1c goal of 7.0%-8.0% ([facility]) Use as directed. Recommend check glucose levels [...] of less than 8.0% ([facility]) Use up to 4 x a day [...] 11 12/27/2021 Active FreeStyle Rose Marie 2 [place] Device Test blood sugars four times daily 1 Each 0 12/27/2021 Active Lantus SoloStar 100 UNIT/ML Subcutaneous Solution Pen-injector (Insulin Glargine)Indications :Type 2 diabetes mellitus with hemoglobin A1c goal of less than 8.0% (HCC) Inject under the skin 15 Units before bedtime. 15 mL 3 01/06/2022 Active Additional Information Patient taking differently: 20 Units Subcutaneous QHS, Reported on 03/18/2022 Pen [place] 32G X 4 MMIndications:Type 2 diabetes mellitus [...] as of this encounter (statuses as of 03/18/2022) Active Problems Problem Noted Date Diabetic ulcer [...] as of this encounter (statuses as of 03/18/2022) Resolved Problems Problem Noted Date Resolved Date [...] as of this encounter (statuses as of 03/18/2022) Immunizations Name Administration Dates Next Due COVID-19 [...] * Telephone Encounter - MICHEL Bonilla - 03/18/2022 10:33 AM EDT was not able to be at visit with Debbie Taylor today. She wanted to tell her about something's and would like a call. TT to RN to call with to get updates for her visit. MICHEL Bonilla documented in this encounter Plan of Treatment Upcoming Encounters Date Type Specialty Care Team Description 04/01/2022 Home Visit Family Medicine Sara Recinos, [facility] Mechanic Insulator [address] [place] [address] 04/15/2022 [facility] Visit [facility] Rica Taylor RN [address] [address] 06/02/2022 Office Visit Cardiology Del Díaz Jr., DO [address] [address] 06/04/2022 Office Visit Podiatry Kylie Burroughs DPM [address] [place] [address] 06/04/2022 Office Visit Family Medicine James Maria DO [address] [address] 06/18/2022 Office Visit Pharmacy [facility] Maldonado [address] [address] Scheduled Procedures Name Priority Associated Diagnoses Date/Ti [...] Documents on File Type Date Recorded Patient Marketing Segment Manager Expl 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 Directive Advanced Directive Advanced Directive Care Teams Flask Maker Relationship Specialty Start Date End Date James Maria DO [address] [address] PCP - General Family Medicine 06/07/18 documented as of this encounter
--- OUTSIDE RECORDS SUMMARY | 2023-07-31 20:18 | External Medical Summary | Summary of Care ---
Author Name Unknown Organization [place] [address] Care Team Providers Care Potline Monitor Name Role Phone James Maria Primary Care Provider Reason for Visit * Reason Onset Date Comments [facility]: Maintenance 03/12/2022 Encounter Details Date Type Department Care Team Description 03/12/2022 Telephone [facility], [facility] 132 [facility] [place] [address] [facility], Nurse [facility] [address] [place] [address] [facility]: Maintenance Allergies Active Allergy [...] 5 Tab 6 08/24/2017 Active Glucose Blood (simplifyMDTOUCH VERNewport Media) STRP Use up to 4 times a day E11.9 300 Strip 3 08/24/2017 Active Blood Glucose Monitoring Suppl (Yast) w/Device KITIndications:Type 2 diabetes mellitus with hemoglobin [...] 11 12/27/2021 Active FreeStyle Rose Marie 2 [place] Device Test blood sugars four times daily 1 Each 0 12/27/2021 Active Lantus SoloStar 100 UNIT/ML Subcutaneous Solution Pen-injector (Insulin Glargine)Indications :Type 2 diabetes mellitus with hemoglobin A1c goal of less than 8.0% (HCC) Inject under the skin 15 Units before bedtime. 15 mL 3 01/06/2022 Active Pen [place] 32G X 4 MMIndications:Type 2 diabetes mellitus [...] layer exposed 01/09/2022 Atherosclerosis of [place] coronary arter y without angina pectoris 01/09/2022 [...] Telephone Encounter - Sherie Larson RN - 03/13/2022 12:24 PM EDT Notified [facility] DME company and made them aware DME company was changed to [employer] [facility] for yamila queen of above Sherie Larson RN, BSN [facility] manager railAnnealing Torch Operator * Telephone Encounter - Ceferino Davis RPh - 03/13/2022 10:41 AM EDT The DME company was switched to [employer] as there were issues contacting [facility]. Patient's supplies weredelivered by Angie a month ago and no further action needed. Confirmed via [facility]. Ceferino Davis RPh * Telephone Encounter - BARTOLO Bentley - 03/12/2022 5:47 PM EDT Please see pharmacy note grom 4/4ge: F/u freestyle rose marie 2 Supplier was changed to [employer], will f/u on same later in week. Scheduled.4 I believe his supplier changed and this is why the form was not completed. Ceferino/Rosalie--can you confirm? * Telephone Encounter - Sherie Larson RN - 03/12/2022 5:15 PM EDT Yamila Queen from DME company [facility] [employer] needing PWO form filled out in its entirety to beable to provide supplies for patients freestyle rose marie. Current form on file under patient files scanned in on 01/28/22 by latoya ahmadi (header: physicians order from [facility]) incomplete This form can be edited. Whole form needs to be filled out. Each box need to be checked, initialledby physician and bottom of form signed by physician [facility] has been trying to get this form completed since 12/2021 Will send form to britta parra and care team When complete please fax back to [facility] medical Fax # Ph if needed Sherie Larson RN, BSN [facility] manager railAnnealing Torch Operator documented in this encounter Plan of Treatment Upcoming Encounters Date Type Specialty Care Team Description 03/17/2022 Office Visit Pharmacy [facility] Erica [address] [address] 03/18/2022 Home Visit [facility] Rica Taylor RN [address] [address] 06/02/2022 Office Visit Cardiology Del Díaz Jr., DO [address] [address] 06/04/2022 Office Visit Podiatry Kylie Burroughs, [facility] [address] [place] [address] [place] [address] 06/04/2022 Office Visit Family Medicine James Maria DO [address] [place] [address] Scheduled Procedures Name Priority Associated Diagnoses Date/Ti [...] Documents on File Type Date Recorded Patient Machine Shop Specialist Expl 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 Directive Advanced Directive Advanced Directive Care Teams Potline Monitor Relationship Specialty Start Date End Date James Maria DO 132 [facility] [place] [address] PCP - General Family Medicine 06/07/18 documented as of this encounter
--- OUTSIDE RECORDS SUMMARY | 2023-07-31 20:18 | External Medical Summary | Summary of Care ---
Author Name Unknown Organization [place] [address] Care Team Providers Care Electrical Unit Rebuilder Name Role Phone James Maria Primary Care Provider Reason for Visit * Reason Comments Nutritional Services Documentation Encounter Details Date Type Department Care Team Description 03/13/2022 Nutrition Services Nutrition, [facility] 132 [facility] [place] [address] Dinah Mohamud RDN 132 [facility] [place] [address] Arrived Allergies Active Allergy Reactions Severity Noted Date Comments Lisinopril Edema face/lips/tongue High 04/05/2018 documented as of this encounter (statuses as of 03/13/2022) Medications Medication Sig Dispensed Refills Start Date End Date Status Blood Glucose Monitoring Suppl (NetWitnessTOUCH ULTRA SYSTEM) W/DEVICE KIT Use as directed [...] 5 Tab 6 08/24/2017 Active Glucose Blood (NetWitnessTOUCH VERCotap) STRP Use up to 4 times a day E11.9 300 Strip 3 08/24/2017 Active Blood Glucose Monitoring Suppl (Moveline) w/Device KITIndications:Type 2 diabetes mellitus with hemoglobin A1c goal of 7.0%-8.0% ([facility]) Use as directed. Recommend check glucose levels [...] 11 12/27/2021 Active FreeStyle Rose Marie 2 [place] Device Test blood sugars four times daily 1 Each 0 12/27/2021 Active Lantus SoloStar 100 UNIT/ML Subcutaneous Solution Pen-injector (Insulin Glargine)Indications :Type 2 diabetes mellitus with hemoglobin A1c goal of less than 8.0% (HCC) Inject under the skin 15 Units before bedtime. 15 mL 3 01/06/2022 Active Pen [place] 32G X 4 MMIndications:Type 2 diabetes mellitus [...] with fat layer exposed 01/09/2022 Atherosclerosis of [place] coronary arter y without angina pectoris 01/09/2022 [...] States his glucose levels have occasionally beenlow [id number]. States he treated these by drinking soda. [...] arms. Patient had appointment with Marian at [facility] nurse earlier today. Continue to monitor pt's diabetes regimen. Dinah Mohamud RDN Clinical Nutrition Services [place], [place] Available via [place] Text documented in this encounter Plan of Treatment Upcoming Encounters Date Type Specialty Care Team Description 03/17/2022 Office Visit Pharmacy Jaspreet [facility] Erica [address] [place] [address] 03/18/2022 Home Visit [facility] Rica Taylor RN [address] [place] [address] 06/02/2022 Office Visit Cardiology Del Díaz Jr., DO [address] [place] [address] 06/04/2022 Office Visit Podiatry Kylie Burroughs DPM [address] [place] [address] 06/04/2022 Office Visit Family Medicine James Maria, [address] [place] [address] Scheduled Procedures Name Priority Associated Diagnoses Date/Ti [...] Documents on File Type Date Recorded Patient Audiometric Technician Expl 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 Directive Advanced Directive Advanced Directive Care Teams Electrical Unit Rebuilder Relationship Specialty Start Date End Date James Maria DO 132 [facility] [place] [address] PCP - General Family Medicine 06/07/18 documented as of this encounter
--- OUTSIDE RECORDS SUMMARY | 2023-07-31 20:18 | External Medical Summary | Summary of Care ---
Author Name Unknown Organization [place] [address] Care Team Providers Care Dot Compliance Specialist Name Role Phone James Maria Primary Care Provider Encounter Details Date Type Department Care Team Description 03/14/2022 Telephone Pharmacy, [place] [address] [place] [address] [facility] [place] [address] [place], [place] [id number] Allergies Active Allergy Reactions Severity Noted Date Comments Lisinopril Edema face/lips/tongue High 04/05/2018 documented as of this encounter (statuses as of 03/14/2022) Medications Medication Sig Dispensed Refills Start Date [...] 3 08/24/2017 Active Blood Glucose Monitoring Suppl (Tao Sales) w/Device KITIndications:Type 2 diabetes mellitus with hemoglobin [...] 11 12/27/2021 Active FreeStyle Rose Marie 2 [place] Device Test blood sugars four times daily 1 Each 0 12/27/2021 Active Lantus SoloStar 100 UNIT/ML Subcutaneous Solution Pen-injector (Insulin Glargine)Indications :Type 2 diabetes mellitus with hemoglobin A1c goal of less than 8.0% (HCC) Inject under the skin 15 Units before bedtime. 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 Called and spoke to patient's , Farhana. Advised that they call the rose marie support number to have the sensors replaced. Additionally suggested the use of skin-tac to provide better adhesionof the sensors. Patient scheduled to see [facility] 03/17/22. Arron Vang [facility] Clinical Pharmacist 03/14/2022, 10:42 AM documented in this encounter Plan of Treatment Upcoming Encounters Date Type Specialty Care Team Description 03/17/2022 Office Visit Pharmacy [facility] Erica [address] [address] 03/18/2022 Home Visit [facility] Rica Taylor, RN [address] [address] 06/02/2022 Office Visit Cardiology Del Díaz Jr., DO [address] [address] 06/04/2022 Office Visit Podiatry Kylie Burroughs DPM [address] [place] [address] Anirudh [place] [address] 06/04/2022 Office Visit Family Medicine James Maria DO [address] [address] [address] Scheduled Procedures Name Priority Associated Diagnoses Date/Ti [...] Documents on File Type Date Recorded Patient Feed Research Aide Expl 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 Directive Advanced Directive Advanced Directive Care Teams Dot Compliance Specialist Relationship Specialty Start Date End Date James Maria DO 132 [facility] [place] [address] PCP - General Family Medicine 06/07/18 documented as of this encounter
--- OUTSIDE RECORDS SUMMARY | 2023-07-31 20:18 | External Medical Summary | Summary of Care ---
Author Name Unknown Organization [place] [address] Care Team Providers Care Release Coordinator Name Role Phone Crow James Sophy Primary Care Provider Reason for Visit * Reason Comments Medication Management Encounter Details Date Type Department Care Team Description 03/13/2022 Pharmacy [facility], [facility] [address] [facility] [place] [address] Pharmacist, [facility] [address] [facility] [place] [address] Type 2 diabetes mellitus (HCC)* Allergies Active Allergy Reactions Severity Noted Date Comments Lisinopril Edema face/lips/tongue High 04/05/2018 documented as of this encounter (statuses as of 03/13/2022) Medications Medication Sig Dispensed Refills Start Date End Date Status Blood Glucose Monitoring Suppl (Tapcentive, Inc.TOUCH ULTRA SYSTEM) W/DEVICE KIT Use as directed 4 times a day as needed for Hyperglycemia (high sugar) or Hypoglycemia (low sugar). Use up to four times a day as directed 1 Kit 0 01/29/2016 Active Tapcentive, Inc.TOUCH ULTRA BLUE STRP USE TO CHECK GLUCOSE 4 TIMES DAILY 100 Strip 0 11/13/2016 Active Tapcentive, Inc.TOUCH DELICA LANCETS 33G MISC USE ONE TO CHECK GLUCOSE 4 TIMES DAILY 100 Each 0 11/13/2016 Active Sildenafil Citrate (VIAGRA) 50 MG TabletIndications:Im potence of organic origin Take 1 Tab by mouth as needed for Erectile Dysfunction. 5 Tab 6 08/24/2017 Active Glucose Blood (Tapcentive, Inc.TOUCH VERIO) STRP Use up to 4 times a day E11.9 300 Strip 3 08/24/2017 Active Blood Glucose Monitoring Suppl (Tapcentive, Inc.TOInaaya) w/Device KITIndications:Type 2 diabetes mellitus with hemoglobin [...] 11 12/27/2021 Active FreeStyle Rose Marie 2 [place]ountze Device Test blood sugars four times daily 1 Each 0 12/27/2021 Active Lantus SoloStar 100 UNIT/ML Subcutaneous Solution Pen-injector (Insulin Glargine)Indications :Type 2 diabetes mellitus with hemoglobin A1c goal of less than 8.0% (HCC) Inject under the skin 15 Units before bedtime. 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 Discussed with patient's same and does not appear they qualify for PACE. States at them momentthere is no issue with medication cost. Pt did sweet pickle maker one of his meds about a month or 2 ago and had to pay a copay but did not pay anything the last time he picked up meds. Encouraged patient's to call [facility] if any issues with cost in the future with same and can look into other options and see if any assistance is available. Provided [facility] number to patient's . [facility] at Home 03/13/2022,1:10 PM documented in this encounter Plan of Treatment Upcoming Encounters Date Type Specialty Care Team Description 03/17/2022 Office Visit Pharmacy [facility] Erica [address] [address] 03/18/2022 Home Visit [facility] Rica Taylor RN [address] [address] 06/02/2022 Office Visit Cardiology Del Díaz Jr., DO [address] [address] [address] 06/04/2022 Office Visit Podiatry Kylie Burroughs DPM [address] [place] [address] [place] [address] 06/04/2022 Office Visit Family Medicine James Maria, [address] [address] [address] Scheduled Procedures Name Priority Associated Diagnoses Date/Ti [...] Visit Diagnoses Diagnosis Type 2 diabetes mellitus (HCC)- Primary Type II or unspecified type diabetes mellitus without mention of complication, not stated as uncontrolled documented in this encounter Advance Directives Documents on File Type Date Recorded Patient Food Service Worker Expl 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 Directive Advanced Directive Advanced Directive Care Teams Release Coordinator Relationship Specialty Start Date End Date James Maria, [address] [address] PCP - General Family Medicine 06/07/18 documented as of this encounter
--- OUTSIDE RECORDS SUMMARY | 2023-07-31 20:19 | External Medical Summary | Summary of Care ---
Author Name Unknown Organization [place] [address] Care Team Providers Care Lozenge Maker Helper Name Role Phone James Maria Primary Care Provider Reason for Visit * Reason Onset Date Comments [facility]: Maintenance 03/12/2022 Encounter Details Date Type Department Care Team Description 03/12/2022 Telephone [facility] 132 [facility] [place] [address] [facility], Nurse [facility] 132 [place] [address] [facility]: Maintenance Allergies Active Allergy Reactions Severity Noted Date Comments Lisinopril Edema face/lips/tongue High 04/05/2018 documented as of this encounter (statuses as of 03/12/2022) Medications Medication Sig Dispensed Refills Start Date [...] 5 Tab 6 08/24/2017 Active Glucose Blood (Doctor on DemandTOUCH VERDowntown) STRP Use up to 4 times a day E11.9 300 Strip 3 08/24/2017 Active Blood Glucose Monitoring Suppl (Fleck - The Bigger Picture) w/Device KITIndications:Type 2 diabetes mellitus with hemoglobin [...] bedtime. 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 Current form on file under patient files scanned in on 01/28/22 by latoya ahmadi (header: physicians order from [facility]) incomplete This form can be edited. Whole form needs to be filled out. Each box need to be checked, initialledby physician and bottom of form signed by physician [facility] has been trying to get this form completed since 12/2021 Will send form to britta parra and care team When complete please fax back to [facility] medical Fax # Ph if needed Sherie Larson RN, BSN [facility] track liner operatorSpaghetti Press Helper documented in this encounter Plan of Treatment Upcoming Encounters Date Type Specialty Care Team Description 03/13/2022 Pharmacy [facility] [place] [address] [address] [facility] [place] [address] 03/17/2022 Office Visit Pharmacy [facility] Erica [address] [address] 03/18/2022 Home Visit [facility] Rica Taylor RN [address] [address] 06/02/2022 Office Visit Cardiology Del Díaz Jr., DO [address] [address] 06/04/2022 Office Visit Podiatry Kylie Burroughs DPM [address] [place] [address] 06/04/2022 Office Visit Family Medicine James Maria, [address] [place] [address] Scheduled Procedures Name Priority Associated Diagnoses Date/Ti [...] Documents on File Type Date Recorded Patient Residential Support Worker Expl 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 Directive Advanced Directive Advanced Directive Care Teams Lozenge Maker Helper Relationship Specialty Start Date End Date James Maria DO [address] [address] PCP - General Family Medicine 06/07/18 documented as of this encounter
--- OUTSIDE RECORDS SUMMARY | 2023-07-31 20:19 | External Medical Summary | Summary of Care ---
Author Name Unknown Organization [place] [address] Care Team Providers Care Poll Watcher Name Role Phone James Maria DO Primary Care Provider Reason for Visit * Reason Onset Date Comments Advice 03/05/2022 diabetic shoe Encounter Details Date Type Department Care Team Description 03/05/2022 Telephone Family Practice [facility] 132 [facility] [place] [phone] James Maria DO 132 [facility] [place] [address] Advice (diabetic shoe ) Allergies Active Allergy Reactions Severity Noted Date Comments Lisinopril Edema face/lips/tongue High 04/05/2018 documented as of this encounter (statuses as of 03/06/2022) Medications Medication Sig Dispensed Refills Start Date [...] 5 Tab 6 08/24/2017 Active Glucose Blood (Paperless WorldTOUCH VERIO) STRP Use up to 4 times a day E11.9 300 Strip 3 08/24/2017 Active Blood Glucose Monitoring Suppl (Paperless WorldTONotch VERIO) w/Device KITIndications:Type 2 diabetes mellitus with [...] 11 12/27/2021 Active FreeStyle Rose Marie 2 [place] Device Test blood sugars four times daily 1 Each 0 12/27/2021 Active Lantus SoloStar 100 UNIT/ML Subcutaneous Solution Pen-injector (Insulin Glargine)Indications :Type 2 diabetes mellitus with hemoglobin A1c goal of less than 8.0% (HCC) Inject under the skin 15 Units before bedtime. 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 Refaxed paper work to [employer] at [phone]. * Telephone Encounter - MICHEL Escobedo - 03/05/2022 1:10 PM EDT Received a call asking if fax was received by office. Name[facility]Company sending [facility] What fax is pertaining to: Diabetic shoe order Date(s) they sent request: March 03 Verified fax number they are sending to is correct (Y or N): yes Callback Number for the clinic to call to verified if fax was received: [phone] ext [phone] documented in this encounter Plan of Treatment Upcoming Encounters Date Type Specialty Care Team Description 03/17/2022 Office Visit Pharmacy [facility] Erica [address] [address] [address] 03/18/2022 Home Visit [facility] Rica Taylor, RN [address] [address] 06/02/2022 Office Visit Cardiology Del Díaz Jr., DO [address] [address] [address] 06/04/2022 Office Visit Podiatry Kylie Burroughs DPM [address] [place] [address] [place] [address] 06/04/2022 Office Visit Family Medicine James Maria, [address] [place] [address] Scheduled Procedures Name Priority Associated Diagnoses Date/Ti [...] Documents on File Type Date Recorded Patient Cupola Melting Supervisor Expl 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 Directive Advanced Directive Advanced Directive Care Teams Poll Watcher Relationship Specialty Start Date End Date [facility]maes Maria, [facility] [place] [address] PCP - General Family Medicine 06/07/18 documented as of this encounter
--- OUTSIDE RECORDS SUMMARY | 2023-07-31 20:19 | External Medical Summary | Summary of Care ---
Author Name Unknown Organization [place] [address] Care Team Providers Care Calculus Tutor Name Role Phone Yariel Mariavor Sophy Primary Care Provider Reason for Visit * Reason Onset Date Comments [facility]: Maintenance 02/28/2022 Encounter Details Date Type Department Care Team Description 02/28/2022 Telephone [facility], [facility] [address] [facility] [place] [address] Coordinator, [facility] [address] [facility] [place] [address] [facility]: Maintenance Allergies Active Allergy Reactions Severity Noted Date Comments Lisinopril Edema face/lips/tongue High 04/05/2018 documented as of this encounter (statuses as of 02/28/2022) Medications Medication Sig Dispensed Refills Start Date [...] 5 Tab 6 08/24/2017 Active Glucose Blood (StreamLine CallTOUCH VERhiogi) STRP Use up to 4 times a day E11.9 300 Strip 3 08/24/2017 Active Blood Glucose Monitoring Suppl (BitPoster) w/Device KITIndications:Type 2 diabetes mellitus with hemoglobin [...] bedtime. 15 mL 3 01/06/2022 Active Pen [place] 32G X 4 MMIndications:Type 2 diabetes mellitus [...] as of this encounter (statuses as of 02/28/2022) Active Problems Problem Noted Date Diabetic ulcer [...] as of this encounter (statuses as of 02/28/2022) Resolved Problems Problem Noted Date Resolved Date [...] as of this encounter (statuses as of 02/28/2022) Immunizations Name Administration Dates Next Due COVID-19 [...] encounter Miscellaneous Notes * Telephone Encounter - Ana Maria Barragan RN - 02/28/2022 4:38 PM EDT Phone call from [facility] Medical They need the form faxed in signed/completed for the Rose Marie Monitor ordered Do not see form in chart file Provided fax #, they said it was sent to incorrect fax #. They will fax it again to [phone] Ligia Barragan RN, BSN [facility] Intake Triage Coordinator [phone] documented in this encounter Plan of Treatment Upcoming Encounters Date Type Specialty Care Team Description 03/06/2022 Home Visit Family Medicine Sara Recinos, Community Health Conference Interpreter [address] [place] [address] 03/17/2022 Office Visit Pharmacy [facility] Erica [address] [address] 03/18/2022 Home Visit [facility] Rica Taylor, RN [address] [address] 06/02/2022 Office Visit Cardiology Del Díaz Jr., [address] [address] [address] 06/04/2022 Office Visit Podiatry Kylie Burroughs DPM [address] [place] [address] [place] [address] 06/04/2022 Office Visit Family Medicine James Maria DO [address] [address] Scheduled Procedures Name Priority Associated Diagnoses Date/Ti [...] Documents on File Type Date Recorded Patient Polymer Tester Expl 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 Directive Advanced Directive Advanced Directive Care Teams Calculus Tutor Relationship Specialty Start Date End Date James Maria, [address] [facility] [place] [id number] PCP - General Family Medicine 06/07/18 documented as of this encounter
--- OUTSIDE RECORDS SUMMARY | 2023-07-31 20:19 | External Medical Summary | Summary of Care ---
Author Name Unknown Organization [place] [address] Care Team Providers Care Stamping Die Maker Bench Name Role Phone James Maria Primary Care Provider Reason for Visit * Reason Comments [facility]: Maintenance Encounter Details Date Type Department Care Team Description 03/06/2022 Home Visit Care Coordination [address] [place] [address] Sara Recinos, Community Health Night Auditor [address] [place] [address] Allergies Active Allergy Reactions Severity Noted Date [...] 5 Tab 6 08/24/2017 Active Glucose Blood (Electrikus) STRP Use up to 4 times a day E11.9 300 Strip 3 08/24/2017 Active Blood Glucose Monitoring Suppl (Electrikus) w/Device KITIndications:Type 2 diabetes mellitus with hemoglobin A1c goal of 7.0%-8.0% ([facility]) Use as directed. Recommend check glucose [...] of less than 8.0% ([facility]) Use up to 4 x a [...] 11 12/27/2021 Active FreeStyle Rose Marie 2 [place] Device Test blood sugars four times daily 1 Each 0 12/27/2021 Active Lantus SoloStar 100 UNIT/ML Subcutaneous Solution Pen-injector (Insulin Glargine)Indications :Type 2 diabetes mellitus with hemoglobin A1c goal of less than 8.0% (HCC) Inject under the skin 15 Units before bedtime. 15 mL 3 01/06/2022 Active Pen [place] 32G X 4 MMIndications:Type 2 diabetes mellitus [...] with fat layer exposed 01/09/[address] 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 Community Health Night Auditor Visit Date: 03/06/2022 Time: 9:45 AM Name: Selvin Sebastian : 1945 Referral Source: food stand manager Source of Information: Patient Spoken language: anguillan Patient can read in Belarusian: Yes. Slab Lifting Supervisor needed: No. Patient is hard of hearing and you need to write questions on paper or white board. COVID-19 screening completed: No Vitals: Vital signs completed: Yes, vital signs within normal range. BP 126/59 | Pulse 59 | Temp 36.6 C (97.8 F) | SpO2 97% Condition Changes: Changes in health or social status since last visit: no The patient has new concerns since last visit: Yes, Rose Marie meter is giving errors and numbers are upand down. Progress towards goals since last visit: Leg area looks better. Medications: Medication review completed? No, none requested Does the patient have barriers to medication adherence? No. Patient reports difficulty paying for medications or might in the future: No. Telehealth: This is a telehealth visit: No. Symptoms Surveys and Evaluations: MAHC10 completed this visit: Yes. Score is 4 or more? Yes, notified Provider/Power Plant Installer Last flowsheet values for MAHC10: Age 65+: 1 (03/06/2022 9:00 AM) Diagnosis [...] at risk for fallin (03/06/2022 9:00 AM) Home Safety Does member identify any safety [...] used, halls and doorways easy to navigate? N/A Are there trip hazards in the home? No Are there working smoke detectors/CO2 detectors? Yes Is a health condition present or an air quality concern that an air conditioner or other coolingdevice will help? Yes Do stairs in the home have railings? No Is there a medical alert or phone near patient? Yes Are walkways clear and well lit? Yes [...] Patient lives alone: No, with sister and other family members o Bathroom is located 1 o Bedroom is located 1 o Patient has to go up and down steps: No. Patient receives help from family/friends/neighbors/community agencies etc.: Yes. Type of help the patient receives: transportation to appts and getting RX Patient perceives the help they receive as adequate: o Yes. DME: o DME used: Walker [employer] Cane o Patient has concerns related to DME: [...] isolated from those around you? Never. Plan: Plan for the patient to follow up with G@ if any new problems or concerns. Patient wants to know where he can purchase the stockings the CM gave to him. His meter is not working correctly. Numbers are spiratic. [facility] will contact the company and ask what the patient can do. See below. Patient had numerous Sensor Error reading. We tried many times and off and on we received this error. [facility] will contact the bttn and notify pharmacy about this error. Lower leg area looks good. No drainage He states he is not using vaseline anymore per request from CM. . Follow Up: Patient encouraged to call the intake phone number for all urgent but not emergent issues. He has not done anything regarding his living will yet. He no longer has dark spots on his elbows. It looks clear. He states he has fallen a few times in the past few months. Patient was given a paper of the upcoming appt with CM. Scheduled to follow up with patient as needed per . Sara Recinos, Community Health Night Auditor 03/06/2022 9:45 AM documented in this encounter Plan of Treatment Upcoming Encounters Date Type Specialty Care Team Description 03/17/2022 Office Visit Pharmacy [facility] Erica [address] [address] 03/18/2022 Home Visit [facility] Rica Taylor, RN [address] [address] 06/02/2022 Office Visit Cardiology Del Díza Jr., DO [address] [address] 06/04/2022 Office Visit Podiatry Kylie Burroughs DPM [address] [place] [address] [place] Maurer [phone] 06/04/2022 Office Visit Family Medicine James Maria, [address] [address] Scheduled Procedures Name Priority Associated Diagnoses Date/Ti [...] Documents on File Type Date Recorded Patient Bridge Inspector Expl 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 Directive Advanced Directive Advanced Directive Care Teams Stamping Die Maker Bench Relationship Specialty Start Date End Date James Maria DO [address] [place] [address] PCP - General Family Medicine 06/07/18 documented as of this encounter
--- OUTSIDE RECORDS SUMMARY | 2023-07-31 20:19 | External Medical Summary | Summary of Care ---
Author Name Unknown Organization [place] [address] Care Team Providers Care Swimming Pool Service Technician Name Role Phone Yariel Mariavor Sophy Primary Care Provider Reason for Visit * Reason Comments Physician In Private Practice Documentation Encounter Details Date Type Department Care Team Description 03/03/2022 Physician In Private Practice [facility], [facility] [address] [facility] [place] [address] [facility] [address] [facility] [place] [address] Allergies Active Allergy Reactions Severity Noted Date Comments Lisinopril Edema face/lips/tongue High 04/05/2018 documented as of this encounter (statuses as of 03/03/2022) Medications Medication Sig Dispensed Refills Start Date [...] 5 Tab 6 08/24/2017 Active Glucose Blood (Shift NetworkTOInVenture VERSahale Snacks) STRP Use up to 4 times a day E11.9 300 Strip 3 08/24/2017 Active Blood Glucose Monitoring Suppl ([employer]) w/Device KITIndications:Type 2 diabetes mellitus with hemoglobin [...] 11 12/27/2021 Active FreeStyle Rose Marie 2 [place] Device Test blood sugars four times daily 1 Each 0 12/27/2021 Active Lantus SoloStar 100 UNIT/ML Subcutaneous Solution Pen-injector (Insulin Glargine)Indications :Type 2 diabetes mellitus with hemoglobin A1c goal of less than 8.0% (HCC) Inject under the skin 15 Units before bedtime. 15 mL 3 01/06/2022 Active Pen [place] 32G X 4 MMIndications:Type 2 diabetes mellitus [...] as of this encounter (statuses as of 03/03/2022) Active Problems Problem Noted Date Diabetic ulcer [...] as of this encounter (statuses as of 03/03/2022) Resolved Problems Problem Noted Date Resolved Date [...] as of this encounter (statuses as of 03/03/2022) Immunizations Name Administration Dates Next Due COVID-19 [...] as of this encounter Progress Notes * Anais Ritter LCSW - 03/03/2022 3:04 PM EDT Worker was consulted by Rica HOWELL CM Selvin has hoarding behavior. Farhana ( ) is presently looking for suggestions to assist with his behavior. Chart was reviewed. Worker discussed at length Selvin and his behavior. As shared by Rica HOWELL CM his mobile home has been cleaned up once before but his behavior continues. Selvin is driving and making trips to his mobile home while he is staying with his sister> Jennifer. Farhana ( ) is with her daughter. Worker suggested to Rica HOWELL CM: 1/ If Selvin wants help in addressing his behavior counseling may be of help. 2/ Psychiatrist can assist with medication > referral from PCP Worker reached out to Ana Maria MOREIRA for Behavioral Health >[phone] for suggestions. She will follow up with this worker if she has any information that can be helpful. Worker placed a call to Farhana () [phone]. Message was left for a return call. Anais Ritter LCSW [facility] Lacing String Cutter [facility] [phone] documented in this encounter Plan of Treatment Upcoming Encounters Date Type Specialty Care Team Description 03/06/2022 Home Visit Family Medicine Sara Recinos, Community Health Brake Assembler [address] [place] [address] 03/17/2022 Office Visit Pharmacy [facility], [facility] Erica [address] [place] [address] 03/18/2022 Home Visit [facility] Rica Taylor RN [address] [place] [address] 06/02/2022 Office Visit Cardiology Arjun Nielsen, Del Gann DO [address] [place] [address] 06/04/2022 Office Visit Podiatry Kylie Burroughs DPM [address] [place] [address] 06/04/2022 Office Visit Family Medicine James Maria, DO [address] [place] [address] Scheduled Procedures Name Priority Associated Diagnoses Date/Ti [...] Documents on File Type Date Recorded Patient Casing Running Machine Tender Expl 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 Directive Advanced Directive Advanced Directive Care Teams Swimming Pool Service Technician Relationship Specialty Start Date End Date James Maria DO [address] [facility] [place] [address] PCP - General Family Medicine 06/07/18 documented as of this encounter
--- OUTSIDE RECORDS SUMMARY | 2023-07-31 20:19 | External Medical Summary | Summary of Care ---
Author Name Unknown Organization [place] [address] Care Team Providers Care Ampoule Sealer Name Role Phone Crow James Sophy Primary Care Provider Reason for Visit * Reason Comments Medication Management Encounter Details Date Type Department Care Team Description 03/04/2022 Pharmacy [facility], [facility] [address] [facility] [place] [address] Pharmacist, [facility] [address] [facility] [place] [address] Type 2 diabetes mellitus (HCC)* Allergies Active Allergy Reactions Severity Noted Date Comments Lisinopril Edema face/lips/tongue High 04/05/2018 documented as of this encounter (statuses as of 03/04/2022) Medications Medication Sig Dispensed Refills Start Date End Date Status Blood Glucose Monitoring Suppl (Citizen SportsTOUCH ULTRA SYSTEM) W/DEVICE KIT Use as directed 4 times a day as needed for Hyperglycemia (high sugar) or Hypoglycemia (low sugar). Use up to four times a day as directed 1 Kit 0 01/29/2016 Active Citizen SportsTOUCH ULTRA BLUE STRP USE TO CHECK GLUCOSE 4 TIMES DAILY 100 Strip 0 11/13/2016 Active ONETOUCH DELICA LANCETS 33G MISC USE ONE TO CHECK GLUCOSE 4 TIMES DAILY 100 Each 0 11/13/2016 Active Sildenafil Citrate (VIAGRA) 50 MG TabletIndications:Im potence of organic origin Take 1 Tab by mouth as needed for Erectile Dysfunction. 5 Tab 6 08/24/2017 Active Glucose Blood (Citizen SportsTOUCH VERIO) STRP Use up to 4 times a day E11.9 300 Strip 3 08/24/2017 Active Blood Glucose Monitoring Suppl (Citizen SportsTOMeriTaleem) w/Device KITIndications:Type 2 diabetes mellitus with hemoglobin [...] 11 12/27/2021 Active FreeStyle Rose Marie 2 [place] Device Test blood sugars four times daily 1 Each 0 12/27/2021 Active Lantus SoloStar 100 UNIT/ML Subcutaneous Solution Pen-injector (Insulin Glargine)Indications :Type 2 diabetes mellitus with hemoglobin A1c goal of less than 8.0% (HCC) Inject under the skin 15 Units before bedtime. 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 Will attempt to reach again re med costs/pace Pinky Flores LPN [facility] 03/04/2022,4:59 PM documented in this encounter Plan of Treatment Upcoming Encounters Date Type Specialty Care Team Description 03/05/2022 Pharmacy [facility] Pharmacist, [facility] [address] [facility] [place] [address] 03/06/2022 Home Visit Family Medicine Sara Recinos, Community Health Hair Stylist [address] [place] [address] 03/17/2022 Office Visit Pharmacy [facility] Erica [address] [place] [address] [address] 03/18/2022 Home Visit [facility] Rica Taylor, RN [address] [address] [address] 06/02/2022 Office Visit Cardiology Del Díaz Jr., DO [address] [address] [address] 06/04/2022 Office Visit Podiatry Kylie Burroughs DPM [address] [place] [address] [place] [address] 06/04/2022 Office Visit Family Medicine James Maria DO [address] [place] [address] Scheduled Procedures Name Priority Associated Diagnoses Date/Ti [...] Documents on File Type Date Recorded Patient Jail Manager Expl 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 Directive Advanced Directive Advanced Directive Care Teams Ampoule Sealer Relationship Specialty Start Date End Date James Maria, 132 [facility] [place] [address] PCP - General Family Medicine 06/07/18 documented as of this encounter
--- OUTSIDE RECORDS SUMMARY | 2023-07-31 20:19 | External Medical Summary | Summary of Care ---
Author Name Unknown Organization [place] [address] Care Team Providers Care Power Project Manager Name Role Phone Crow James Sophy Primary Care Provider Reason for Visit * Reason Comments Medication Management Encounter Details Date Type Department Care Team Description 02/27/2022 Pharmacy [facility], [facility] [address] [facility] [place] [address] Pharmacist, [facility] [address] [facility] [place] [address] Type 2 diabetes mellitus (HCC)* Allergies Active Allergy Reactions Severity Noted Date Comments Lisinopril Edema face/lips/tongue High 04/05/2018 documented as of this encounter (statuses as of 02/27/2022) Medications Medication Sig Dispensed Refills Start Date End Date Status Blood Glucose Monitoring Suppl (ONETOUCH ULTRA SYSTEM) W/DEVICE KIT Use as directed 4 times a day as needed for Hyperglycemia (high sugar) or Hypoglycemia (low sugar). Use up to four times a day as directed 1 Kit 0 01/29/2016 Active LongaccessTOUCH ULTRA BLUE STRP USE TO CHECK GLUCOSE 4 TIMES DAILY 100 Strip 0 11/13/2016 Active ONETOUCH DELICA LANCETS 33G MISC USE ONE TO CHECK GLUCOSE 4 TIMES DAILY 100 Each 0 11/13/2016 Active Sildenafil Citrate (VIAGRA) 50 MG TabletIndications:Im potence of organic origin Take 1 Tab by mouth as needed for Erectile Dysfunction. 5 Tab 6 08/24/2017 Active Glucose Blood (LongaccessTOUCH VERIO) STRP Use up to 4 times a day E11.9 300 Strip 3 08/24/2017 Active Blood Glucose Monitoring Suppl (LongaccessTOAttributor) w/Device KITIndications:Type 2 diabetes mellitus with hemoglobin [...] 11 12/27/2021 Active FreeStyle Rose Marie 2 [place] Device Test blood sugars four times daily 1 Each 0 12/27/2021 Active Lantus SoloStar 100 UNIT/ML Subcutaneous Solution Pen-injector (Insulin Glargine)Indications :Type 2 diabetes mellitus with hemoglobin A1c goal of less than 8.0% (HCC) Inject under the skin 15 Units before bedtime. 15 mL 3 01/06/2022 Active Pen [place] 32G X 4 MMIndications:Type 2 diabetes mellitus [...] as of this encounter (statuses as of 02/27/2022) Active Problems Problem Noted Date Diabetic ulcer of toe of rig ht foot associated with type 2 diabetes mellitus, with fat layer exposed 01/09/2022 Atherosclerosis of [place] coronary arter y without angina pectoris [...] as of this encounter (statuses as of 02/27/2022) Resolved Problems Problem Noted Date Resolved Date [...] as of this encounter (statuses as of 02/27/2022) Immunizations Name Administration Dates Next Due COVID-19 [...] Progress Notes * Pinky Flores LPN - 02/27/2022 5:19 PM EDT Scheduled for f/u call for tomorrow, 02/28 Pinky Flores LPN [facility] 02/27/2022,5:19 PM documented in this encounter Plan of Treatment Upcoming Encounters Date Type Specialty Care Team Description 02/28/2022 Pharmacy [facility] Pharmacist, [place] [address] [address] [facility] [place] [address] 02/28/2022 Home Visit [facility] Elda Ponce RN [address] [address] [address] 03/06/2022 Home Visit Family Medicine Sara Recinos, Community Health Paraprofessional Education Assistant [address] [place] [address] 03/17/2022 Office Visit Pharmacy [facility] Erica [address] [place] [address] 03/18/2022 Home Visit [facility] Rica Taylor RN [address] [place] [address] 06/02/2022 Office Visit Cardiology Del Díaz Jr., DO [address] [address] [address] 06/04/2022 Office [facility] [address] [facility] [address] 06/04/2022 Office Visit Family Medicine James Maria, [address] [place] [address] Scheduled Procedures Name Priority Associated Diagnoses Date/Ti [...] Documents on File Type Date Recorded Patient Wire Worker Expl 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 Directive Advanced Directive Advanced Directive Care Teams Power Project Manager Relationship Specialty Start Date End Date James Maria, [address] [facility] [place] [address] PCP - General Family Medicine 06/07/18 documented as of this encounter
--- OUTSIDE RECORDS SUMMARY | 2023-07-31 20:19 | External Medical Summary | Summary of Care ---
Author Name Unknown Organization [place] [address] Care Team Providers Care Door Clamp Operator Name Role Phone James Maria Primary Care Provider Reason for Visit * Reason Onset Date Comments Forms Request 02/27/2022 Encounter Details Date Type Department Care Team Description 02/27/2022 Telephone Family Practice [facility] [address] [place] [address] Celina Lau LPN Forms Request Allergies Active Allergy Reactions Severity Noted [...] 3 08/24/2017 Active Blood Glucose Monitoring Suppl ([employer] [place]) w/Device KITIndications:Type 2 diabetes mellitus with hemoglobin [...] of less than 8.0% ([facility]) Use up to 4 x a [...] 11 12/27/2021 Active FreeStyle Rose Marie 2 [place] Device Test blood sugars four times daily 1 Each 0 12/27/2021 Active Lantus SoloStar 100 UNIT/ML Subcutaneous Solution Pen-injector (Insulin Glargine)Indications :Type 2 diabetes mellitus with hemoglobin A1c goal of less than 8.0% (HCC) Inject under the skin 15 Units before bedtime. 15 mL 3 01/06/2022 Active Pen [place] 32G X 4 MMIndications:Type 2 diabetes mellitus [...] with fat layer exposed 01/09/2022 Atherosclerosis of [place] coronary arter y without angina pectoris 01/09/2022 [...] Telephone Encounter - Celina Lau LPN - 03/03/2022 11:20 AM EDT Faxed form [facility] addended notes and [facility] Added note that Miguel Ángel to assist with shoes. * Telephone Encounter - James Maria DO - 02/27/2022 3:33 PM EDT Done - thank you * Telephone Encounter - Celina Lau LPN - 02/27/2022 2:56 PM EDT Can you please addend your 12/05/2021 OFV notes to reflect need for pt to have diabetic shoes. Received Diabetic shoes form request from Miguel Ángel. [facility]. Will fax notes, Miguel [facility]ngel form [facility] referral noting pt to go through [facility] once complete. documented in this encounter Plan of Treatment Upcoming Encounters Date Type Specialty Care Team Description 03/06/2022 Home Visit Family Medicine Sara Recinos, Community Health Vocational Rehabilitation Teacher [address] [place] [address] 03/17/2022 Office Visit Pharmacy [facility] Erica [address] [place] [address] 03/18/2022 Home Visit [facility] Rica Taylor, RN [address] [address] 06/02/2022 Office Visit Cardiology Del Díaz Jr., DO [address] [place] [address] 06/04/2022 Office Visit Podiatry Kylie Burroughs DPM [address] [place] [address] 06/04/2022 Office Visit Family Medicine James Maria, 132 [facility] [place] [address] Scheduled Procedures Name Priority Associated Diagnoses Date/Ti [...] Documents on File Type Date Recorded Patient Digital Project Manager Expl 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 Directive Advanced Directive Advanced Directive Care Teams Door Clamp Operator Relationship Specialty Start Date End Date James Maria DO [address] [facility] [place] [address] PCP - General Family Medicine 06/07/18 documented as of this encounter
--- OUTSIDE RECORDS SUMMARY | 2023-07-31 20:19 | External Medical Summary | Summary of Care ---
Author Name Unknown Organization [place] [address] Care Team Providers Care Private Security Guard Name Role Phone Crow James Sophy Primary Care Provider Reason for Visit * Reason Comments Medication Management Encounter Details Date Type Department Care Team Description 03/03/2022 Pharmacy [facility], [facility] [address] [place] [address] Pharmacist, [facility] [address] [place] [address] Type 2 diabetes mellitus (HCC)* Allergies Active Allergy Reactions Severity Noted Date Comments Lisinopril Edema face/lips/tongue High 04/05/2018 documented as of this encounter (statuses as of 03/03/2022) Medications Medication Sig Dispensed Refills Start Date End Date Status Blood Glucose Monitoring Suppl (CommProveTOUCH ULTRA SYSTEM) W/DEVICE KIT Use as directed 4 times a day as needed for Hyperglycemia (high sugar) or Hypoglycemia (low sugar). Use up to four times a day as directed 1 Kit 0 01/29/2016 Active CommProveTOUCH ULTRA BLUE STRP USE TO CHECK GLUCOSE 4 TIMES DAILY 100 Strip 0 11/13/2016 Active ONETOUCH [place]ICA LANCETS 33G MISC USE ONE TO CHECK GLUCOSE 4 TIMES DAILY 100 Each 0 11/13/2016 Active Sildenafil Citrate (VIAGRA) 50 MG TabletIndications:Im potence of organic origin Take 1 Tab by mouth as needed for Erectile Dysfunction. 5 Tab 6 08/24/2017 Active Glucose Blood (CommProveTOUCH VERIO) STRP Use up to 4 times a day E11.9 300 Strip 3 08/24/2017 Active Blood Glucose Monitoring Suppl (Comm[employer]Transport [employer]aceuticals) w/Device KITIndications:Type 2 diabetes mellitus with [...] 11 12/27/2021 Active FreeStyle Rose Marie 2 [place] Device Test blood sugars four times daily 1 Each 0 12/27/2021 Active Lantus SoloStar 100 UNIT/ML Subcutaneous Solution Pen-injector (Insulin Glargine)Indications :Type 2 diabetes mellitus with hemoglobin A1c goal of less than 8.0% (HCC) Inject under the skin 15 Units before bedtime. 15 mL 3 01/06/2022 Active Pen [place] 32G X 4 MMIndications:Type 2 diabetes [...] with fat layer exposed 01/09/2022 Atherosclerosis of [place] coronary arter y without angina pectoris [...] Progress Notes * Pinky Flores LPN - 03/03/2022 4:54 PM EDT Tried to call cell phone, would ring and disconnect. Scheduled for f/u tomorrow. Pinky Flores LPN [facility] 03/03/2022,4:54 PM documented in this encounter Plan of Treatment Upcoming Encounters Date Type Specialty Care Team Description 03/04/2022 Pharmacy [facility] Pharmacist, [place] [address] [place] [address] 03/06/2022 Home Visit Family Medicine Sara Recinos, Community Health Engraving Patternmaker [address] [place] [address] 03/17/2022 Office Visit Pharmacy [facility] Erica [address] [place] [address] 03/18/2022 Home Visit [facility] Rica Taylor, RN [address] [place] [address] 06/02/2022 Office Visit Cardiology Del Díaz Jr., DO [address] [place] [address] 06/04/2022 Office Visit Podiatry Kylie Burroughs DPM [address] [place] [address] [place] [address] 06/04/2022 Office Visit Family Medicine James Maria DO [address] [place] [address] Scheduled Procedures Name Priority Associated Diagnoses Date/Ti [...] Documents on File Type Date Recorded Patient Temple Marker Expl anation Advanced Directive service a hi [...] Directive Advanced Directive Advanced Directive Care Teams Private Security Guard Relationship Specialty Start Date End Date James Maria DO 132 [facility] [place] [address] PCP - General Family Medicine 06/07/18 documented as of this encounter
--- OUTSIDE RECORDS SUMMARY | 2023-07-31 20:19 | External Medical Summary | Summary of Care ---
Author Name Unknown Organization [place] [address] Care Team Providers Care Frame Carver Spindle Name Role Phone James Maria Primary Care Provider Reason for Visit * Reason Onset Date Comments [facility]: Maintenance 03/12/2022 Encounter Details Date Type Department Care Team Description 03/12/2022 Telephone [facility], [facility] 132 [facility] [place] [address] [facility], Nurse [facility] [address] [facility] [place] [address] [facility]: Maintenance Allergies Active Allergy [...] 5 Tab 6 08/24/2017 Active Glucose Blood (LifeproofTOUCH VERGojimo) STRP Use up to 4 times a day E11.9 300 Strip 3 08/24/2017 Active Blood Glucose Monitoring Suppl ([employer]) w/Device KITIndications:Type 2 diabetes mellitus with hemoglobin [...] bedtime. 15 mL 3 01/06/2022 Active Pen [place] 32G X 4 MMIndications:Type 2 diabetes mellitus [...] with fat layer exposed 01/09/2022 Atherosclerosis of [place] coronary arter y without angina pectoris 01/09/2022 [...] rose marie 2 Supplier was changed to [employer], will f/u on same later in week. Scheduled.4 I believe his supplier changed and this is why the form was not completed. Ceferino/Rosalie--can you confirm? * Telephone Encounter - Sherie Larson RN - 03/12/2022 5:15 PM EDT Yamila Queen from [employer] needing PWO form filled out in its entirety to beable to provide supplies for patients freestyle rose marie. Current form on file under patient files scanned in on 01/28/22 by latoya ahmadi (header: physicians order from [facility] medical) incomplete This form can be edited. Whole form needs to be filled out. Each box need to be checked, initialledby physician and bottom of form signed by physician [facility] has been trying to get this form completed since 12/2021 Will send form to britta parra and care team When complete please fax back to [facility] medical Fax # Ph if needed Sherie Larson RN, BSN [facility] computer patternmakerStrickler Attendant documented in this encounter Plan of Treatment Upcoming Encounters Date Type Specialty Care Team Description 03/13/2022 Pharmacy [facility] PharmacistAnatoly [address] [facility] [place] [address] 03/17/2022 Office Visit Pharmacy [facility] Vogel [address] [place] [address] 03/18/2022 Home Visit [facility] Rica Taylor, RN [address] [place] [address] 06/02/2022 Office Visit Cardiology Del Díaz Jr., DO [address] [place] [address] 06/04/2022 Office Visit Podiatry Kylie Burroughs, [facility] [address] [facility] [place] [address] 06/04/2022 Office Visit Family Medicine James Maria, [address] [place] [address] Scheduled Procedures Name Priority Associated Diagnoses Date/Ti [...] Documents on File Type Date Recorded Patient Community Services Manager Expl anation Advanced Directive service a ih [...] Directive Advanced Directive Advanced Directive Care Teams Frame Carver Spindle Relationship Specialty Start Date End Date James Maria DO [address] [place] [address] PCP - General Family Medicine 06/07/18 documented as of this encounter
--- OUTSIDE RECORDS SUMMARY | 2023-07-31 20:19 | External Medical Summary | Summary of Care ---
Author Name Unknown Organization [place] [address] Care Team Providers Care Medical Billing Associate Name Role Phone James Maria Primary Care Provider Reason for Visit * Reason Onset Date Comments [facility]: Maintenance 03/07/2022 Encounter Details Date Type Department Care Team Description 03/07/2022 Telephone [facility], [facility] 132 [facility] [place] [address] [facility], Nurse [facility] [address] [place] [address] [facility]: Maintenance Allergies Active Allergy Reactions Severity Noted Date Comments Lisinopril Edema face/lips/tongue High 04/05/2018 documented as of this encounter (statuses as of 03/07/2022) Medications Medication Sig Dispensed Refills Start Date [...] 5 Tab 6 08/24/2017 Active Glucose Blood (OberScharrerTOUCH VERNCPC Enterprises LLC) STRP Use up to 4 times a day E11.9 300 Strip 3 08/24/2017 Active Blood Glucose Monitoring Suppl ([employer]) w/Device KITIndications:Type 2 diabetes mellitus with hemoglobin [...] 11 12/27/2021 Active FreeStyle Rose Marie 2 [place] Device Test blood sugars four times daily 1 Each 0 12/27/2021 Active Lantus SoloStar 100 UNIT/ML Subcutaneous Solution Pen-injector (Insulin Glargine)Indications :Type 2 diabetes mellitus with hemoglobin A1c goal of less than 8.0% (HCC) Inject under the skin 15 Units before bedtime. 15 mL 3 01/06/2022 Active Pen [place] 32G X 4 MMIndications:Type 2 diabetes mellitus [...] as of this encounter (statuses as of 03/07/2022) Active Problems Problem Noted Date Diabetic ulcer [...] as of this encounter (statuses as of 03/07/2022) Resolved Problems Problem Noted Date Resolved Date [...] as of this encounter (statuses as of 03/07/2022) Immunizations Name Administration Dates Next Due COVID-19 [...] encounter Miscellaneous Notes * Telephone Encounter - Jessica Avery RN - 03/07/2022 11:15 AM EDT Call from [place] with [facility]. Requesting response to form that was faxed to [facility] on 02/28/2022. Chart reviewed and form is not in file. Requested [facility] to re fax same to [facility]. Devora Avery RN CCM Straightedge Worker [facility] documented in this encounter Plan of Treatment Upcoming Encounters Date Type Specialty Care Team Description 03/17/2022 Office Visit Pharmacy [facility] Erica [address] [place] [address] 03/18/2022 Home Visit [facility] Rica Taylor RN [address] [place] [address] 06/02/2022 Office Visit Cardiology Del Díaz Jr., DO [address] [place] [address] 06/04/2022 Office Visit Podiatry Kylie Burroughs DPM [address] [place] [address] [place] [address] 06/04/2022 Office Visit Family Medicine James Maria DO [address] [place] [address] Scheduled Procedures Name Priority Associated Diagnoses Date/Ti [...] Documents on File Type Date Recorded Patient Cook Chill Technician Expl 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 Directive Advanced Directive Advanced Directive Care Teams Medical Billing Associate Relationship Specialty Start Date End Date James Maria DO 132 [facility] [place] [address] PCP - General Family Medicine 06/07/18 documented as of this encounter
--- OUTSIDE RECORDS SUMMARY | 2023-07-31 20:19 | External Medical Summary | Summary of Care ---
Author Name Unknown Organization [place] [address] Care Team Providers Care Datacap Developer Name Role Phone James Maria Primary Care Provider Reason for Visit * Reason Comments [facility]: Acute Encounter Details Date Type Department Care Team Description 02/28/2022 Home Visit [facility], [facility] [address] [facility] [place] [address] Rica Taylor, RN 132 [facility] [place] [address] Hoarding behavior* Allergies Active Allergy Reactions Severity Noted Date Comments Lisinopril Edema face/lips/tongue High 04/05/2018 documented as of this encounter (statuses as of 02/28/2022) Medications Medication Sig Dispensed Refills Start Date End Date Status Blood Glucose Monitoring Suppl (Torch GroupTOUCH ULTRA SYSTEM) W/DEVICE KIT Use as directed [...] 5 Tab 6 08/24/2017 Active Glucose Blood (Torch GroupTOSHERPA assistant) STRP Use up to 4 times a day E11.9 300 Strip 3 08/24/2017 Active Blood Glucose Monitoring Suppl ([employer]) w/Device KITIndications:Type 2 diabetes mellitus with hemoglobin [...] morning. 90 Capsule 0 12/25/2021 Active FreeStyle Agusto 2 Sensor Test blood sugars four times daily 2 Each 11 12/27/2021 Active FreeStyle Agusto 2 [place] Device Test blood sugars four times daily 1 Each 0 12/27/2021 Active Lantus SoloStar 100 UNIT/ML Subcutaneous Solution Pen-injector (Insulin Glargine)Indications :Type 2 diabetes mellitus with hemoglobin A1c goal of less than 8.0% (HCC) Inject under the skin 15 Units before bedtime. 15 mL 3 01/06/2022 Active Pen [place] 32G X 4 MMIndications:Type 2 diabetes mellitus [...] with fat layer exposed 01/09/2022 Atherosclerosis of [place] coronary arter y without angina pectoris 01/09/2022 [...] Sign Reading Time Taken Comments Blood Pressure 130/72 02/28/2022 1:24 PM EDT Pulse 62 02/28/2022 1:24 PM EDT Temperature 36.6 C (97.9 F) 02/28/2022 1:24 PM ED T Respiratory Rate 18 02/28/2022 1:24 PM EDT Oxygen Saturation 94% 02/28/2022 1:24 PM EDT Inhaled Oxygen Concentration - - Weight - - Height - - Body Mass Index - - documented in this encounter Progress Notes * Rica Taylor RN - 02/28/2022 12:16 PM EDT Images from the original note were not included. [facility] Manager SystemVice President [employer] Visit Date: 02/28/2022 Time: 12:16 PM Name: Selvin Sebastian : 1945 Current Concerns: Acute visit for Appbistroe teaching Pt had help from clinic for first sensor, but it did not stay on Pt reports he has not checked his sugar in past few days because the sensor came off and fingers are too sore. came for teaching and was showed how to apply sensor Worsening wounds of anterior LLE and new wound or RLE - pics taken above. Pt had band aids on and has been applying vaseline every 2-3 days. Wound edges of LLE wound are macerated. There was serosanguinous drainage on both bandages- moderate amount of LLE and scant of RLE Pt denies any pain from the wounds. TT to [facility] and assessment, pics, and request for home health nursing for wound care. Areas cleansed with soap and water and nonadherent band aide applied. Tubigrips applied for edema - pt got these at clinic yesterday - states they are more comfortable than his compression socks Spoke with after visit and she voices concern with pt's hoarding at their trailer. They are not able to live in it and it has been cleaned up once but pt went and bought more items and it is cluttered again, per . She is wondering if any resources to help with pt's hoarding. He is staying with his sister and is staying with dtr because they are unable to live in theirtrailer. Referral to . Problems/Symptoms: Review of Systems Constitutional: Negative. HENT: Negative. Eyes: Negative. Respiratory: Positive for shortness of breath (PIERCE - at baseline). Cardiovascular: Positive for leg swelling. Gastrointestinal: Negative. Endocrine: Negative. Genitourinary: Negative. Musculoskeletal: Positive for arthralgias and gait problem. Skin: Positive for wound (anterior RLE and LLE - pics above). Psychiatric/Behavioral: Negative. Physical Exam: BP 130/72 | Pulse 62 | Temp 36.6 C (97.9 F) | Resp 18 | SpO2 94% [...] and oriented to person, place, and time. [facility]-10 Completed this Visit: No. No falls since last visit Treatment/Plan: Continue meds as prescribed Tubigrips on in am, off in pm Freestyle agusto sensor -change every 2 weeks Home Health referral for wound intermediate Interventions Provided: Home Intervention: Other; Evaluation Consulted PCP/Specialist Reinforced current Plan of Care, including self-management and medication regimen Patient's 'Red Flags': 1. S/s of infection - redness, fever, foul drainage 2. bsg highs and lows - >300 and <70 3. Redness of LE r/t cellulitis Patient Needs to Remember: Call [facility] at with any new or worsening health concerns or problems, red flag symptoms. Referrals Needed: Home Health Follow Up: Is there cellular connectivity/connectivity in the home? Yes Does the patient have internet in the home? Yes Patient encouraged to call the intake phone number for all urgent but not emergent issues. Scheduled to follow up with patient in one week with ARABELLA and 3 weeks after with RNCM. Rica Taylor RN 02/28/2022 12:16 PM documented in this encounter Plan of Treatment Upcoming Encounters Date Type Specialty Care Team Description 03/06/2022 Home Visit Family Medicine Sara Recinos, Community Health Daycare Assistant [address] [place] [address] 03/17/2022 Office Visit Pharmacy [facility] Erica 132 [facility] [place] [address] 03/18/2022 Home Visit [facility] Rica Taylor RN 132 [facility] [place] [address] 06/02/2022 Office Visit Cardiology Del Díaz Jr., DO 132 [facility] [place] [address] 06/04/2022 Office Visit Podiatry Kylie Burroughs DPM [address] [place] [address] 06/04/2022 Office Visit Family Medicine James Maria DO 132 [facility] [place] [address] Scheduled Procedures Name Priority Associated Diagnoses Date/Ti [...] as of this encounter Visit Diagnoses Diagnosis Hoarding behavior- Primary Other conduct disorder documented in this encounter Advance Directives Documents on File Type Date Recorded Patient Bundle Tier And Labeler Expl anation Advanced Directive service a hi [...] Directive Advanced Directive Advanced Directive Care Teams Datacap Developer Relationship Specialty Start Date End Date James Maria DO [address] [facility] [place] [address] PCP - General Family Medicine 06/07/18 documented as of this encounter
--- OUTSIDE RECORDS SUMMARY | 2023-07-31 20:20 | External Medical Summary | Summary of Care ---
Author Name Unknown Organization [place] [address] Care Team Providers Care Manager Talent Management Name Role Phone Jaems Maria Primary Care Provider Reason for Visit * Reason Comments Diabetic Foot Care Encounter Details Date Type Department Care Team Description 02/27/2022 Office Visit Podiatry [facility] [address] [facility] [place] [address] Kylie Burroughs, REMEDIOS [address] [facility] [place] [id number] Onychomycosis*; DM type 2 with diabetic peripheral neuropathy (HCC); Eschar of lower leg; Edema of both lower legs Allergies Active Allergy Reactions Severity Noted Date Comments Lisinopril Edema face/lips/tongue High 04/05/2018 documented as of this encounter (statuses as of 02/27/2022) Medications Medication Sig Dispensed Refills Start Date End Date Status Blood Glucose Monitoring Suppl (QualySenseTOUCH ULTRA SYSTEM) W/DEVICE KIT Use as directed [...] 5 Tab 6 08/24/2017 Active Glucose Blood (QualySenseTOUCH VERIO) STRP Use up to 4 times a day E11.9 300 Strip 3 08/24/2017 Active Blood Glucose Monitoring Suppl (SFOX) w/Device KITIndications:Type 2 diabetes mellitus with hemoglobin [...] 12/27/2021 Active FreeStyle Rose Marie 2 [place] Device Test blood sugars four times daily 1 Each 0 12/27/2021 Active Lantus SoloStar 100 UNIT/ML Subcutaneous Solution Pen-injector (Insulin Glargine)Indications :Type 2 diabetes mellitus with hemoglobin A1c goal of less than 8.0% (HCC) Inject under the skin 15 Units before bedtime. 15 mL 3 01/06/2022 Active Pen [place] 32G X 4 MMIndications:Type 2 diabetes mellitus [...] with fat layer exposed 01/09/2022 Atherosclerosis of [place] coronary arter y without angina pectoris 01/09/2022 [...] Progress Notes * Kylie Burroughs, DPM - 02/27/2022 2:30 PM EDT Podiatry Established Note [facility] Name: Selvin Sebastian : 1945 Date: 02/27/2022 REASON FOR VISIT: diabetic foot care SUBJECTIVE: This patient is a 76 year old male who presents today accompanied by his . He is very hard of hearing and she helps communicate. He denies pain or any issues with exception of some sores to the front of both legs. She has been applying silvadene and bandaids. FBS not reported. He does have neuropathy. 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 No interdigital changes. Dry eschars to the anterior lower legs x 3 both sides. Chronic appearing discoloration. Class Findings for Routine Foot Care Class [...] 2 with diabetic peripheral neuropathy (HCC) 3. Eschar of lower leg 4. Edema of both lower legs PLAN: edure: After mild cleansing and drying of feet, toenails 1-5 bilaterally were manually and mechanically debrided without incident. A nail splitter was used to remove all incurvating edges. A card cutter wasused to trim nail to appropriate length. An electrical bur was used in a side to side motion to reduce nail thickness, hypertrophic growth, and to smooth all edges. Patient tolerated well. They noted improvement following procedure. They are to continue silvadene and dry dressings to eschars. Nurse applied similar dressing today and dispensed tubi java programmer analyst compression sleeves for him to try during the day. I recommended they contactPCP as he may need labs/change in diuretic. Follow up: 3 mo documented in this encounter Nursing Notes * Celeste Huber LPN - 02/27/2022 2:16 PM EDT Pt presents with his for routine diabetic nail care, no pain in feet. States did not test BSG,Freestyle Rose Marie is not working, 'she comes tomorrow'. documented in this encounter Plan of Treatment Upcoming Encounters Date Type Specialty Care Team Description 02/28/2022 Home Visit [facility] Elda Ponce, RN [address] [place] [address] 03/06/2022 Home Visit Family Medicine Sara Recinos, [facility] Mold Swabber [address] [place] [address] 03/17/2022 Office Visit [facility]acy [facility] Erica [address] [place] [address] 03/18/2022 Home Visit [facility] Rica Taylor, RN [address] [place] [address] 06/02/2022 Office Visit Cardiology Del Díaz Jr., [address] [place] [address] 06/04/2022 Office Visit Podiatry Kylie Burroughs DPM [address] [place], [place] [address] [place] [id number] 06/04/2022 Office Visit Family Medicine James Maria, [address] [place] [address] Scheduled Procedures Name Priority Associated Diagnoses Date/Ti [...] with neurological manifestations, not stated as uncontrolled Eschar of lower leg Unspecified local infection of skin and subcutaneous tissue Edema of both lower legs documented in this encounter Advance Directives Documents on File Type Date Recorded Patient Interior Design Coordinator Expl 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 Directive Advanced Directive Advanced Directive Care Teams Manager Talent Management Relationship Specialty Start Date End Date James Maria DO [address] [place] [address] PCP - General Family Medicine 06/07/18 documented as of this encounter
--- OUTSIDE RECORDS SUMMARY | 2023-07-31 20:20 | External Medical Summary | Summary of Care ---
Author Name Unknown Organization [place] [address] Care Team Providers Care Sailor Name Role Phone James Maria Primary Care Provider Reason for Visit * Reason Comments Diabetic Foot Care Encounter Details Date Type Department Care Team Description 02/27/2022 Office Visit Podiatry [facility] [address] [facility] [place] [address] Kylie Burroughs, REMEDI[place] [address] [facility] [phone] Onychomycosis*; DM type 2 with diabetic peripheral neuropathy (HCC); Eschar of lower leg; Edema of both lower legs Allergies Active Allergy Reactions Severity Noted Date Comments Lisinopril Edema face/lips/tongue High 04/05/2018 documented as of this encounter (statuses as of 02/27/2022) Medications Medication Sig Dispensed Refills Start Date End Date Status Blood Glucose Monitoring Suppl (TapBookAuthorTOUCH ULTRA SYSTEM) W/DEVICE KIT Use as directed [...] 5 Tab 6 08/24/2017 Active Glucose Blood (TapBookAuthorTOUCH VERIO) STRP Use up to 4 times a day E11.9 300 Strip 3 08/24/2017 Active Blood Glucose Monitoring Suppl ([employer]) w/Device KITIndications:Type 2 diabetes mellitus with hemoglobin [...] 11 12/27/2021 Active FreeStyle Rose Marie 2 [place] Device Test blood sugars four times daily 1 Each 0 12/27/2021 Active Lantus SoloStar 100 UNIT/ML Subcutaneous Solution Pen-injector (Insulin Glargine)Indications :Type 2 diabetes mellitus with hemoglobin A1c goal of less than 8.0% (HCC) Inject under the skin 15 Units before bedtime. 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 A crystal cutter wasused to trim nail to appropriate length. An electrical bur was used in a side to side motion to reduce nail thickness, hypertrophic growth, and to smooth all edges. Patient tolerated well. They noted improvement following procedure. They are to continue silvadene and dry dressings to eschars. Nurse applied similar dressing today and dispensed tubi fertilizer mixer compression sleeves for him to try during [...] Home Elda Ponce, RN [address] [place] [address] 03/06/2022 Home Visit Family Medicine Sara Recinos, [facility] [address] [facility] [address] 03/17/2022 Office Visit Pharmacy [facility] [address] [place] [address] 03/18/2022 Home Visit [facility] Rica Taylor, DANTE [address] [place] [address] 06/02/2022 Office Visit Cardiology Del Díaz Jr., DO [address] [place] [address] 06/04/2022 Office Visit Family Medicine James Maria, [address] [place] [address] Scheduled Procedures Name Priority Associated Diagnoses Date/Ti [...] Documents on File Type Date Recorded Patient Barometers Calibrator Expl anation Advanced Directive service a hi [...] Directive Advanced Directive Advanced Directive Care Teams Sailor Relationship Specialty Start Date End Date James Maria DO [address] [place] [address] PCP - General Family Medicine 06/07/18 documented as of this encounter
--- OUTSIDE RECORDS SUMMARY | 2023-07-31 20:20 | External Medical Summary | Summary of Care ---
Author Name Unknown Organization [place] [address] Care Team Providers Care Coffee Roaster Helper Name Role Phone Crow James Sophy Primary Care Provider Reason for Visit * Reason Comments Medication Management Encounter Details Date Type Department Care Team Description 02/26/2022 Pharmacy [facility] [address] [facility] [place] [address] Pharmacist, [facility] [address] [facility] [place] [id number] Type 2 diabetes mellitus (HCC)* Allergies Active Allergy Reactions Severity Noted Date Comments Lisinopril Edema face/lips/tongue High 04/05/2018 documented as of this encounter (statuses as of 02/26/2022) Medications Medication Sig Dispensed Refills Start Date End Date Status Blood Glucose Monitoring Suppl (ONETOUCH ULTRA SYSTEM) W/DEVICE KIT Use as directed 4 times a day as needed for Hyperglycemia (high sugar) or Hypoglycemia (low sugar). Use up to four times a day as directed 1 Kit 0 01/29/2016 Active CubeaconTOUCH ULTRA BLUE STRP USE TO CHECK GLUCOSE 4 TIMES DAILY 100 Strip 0 11/13/2016 Active ONETOUCH [place] LANCETS 33G MISC USE ONE TO CHECK GLUCOSE 4 TIMES DAILY 100 Each 0 11/13/2016 Active Sildenafil Citrate (VIAGRA) 50 MG TabletIndications:Im potence of organic origin Take 1 Tab by mouth as needed for Erectile Dysfunction. 5 Tab 6 08/24/2017 Active Glucose Blood (CubeaconTOUCH VERIO) STRP Use up to 4 times a day E11.9 300 Strip 3 08/24/2017 Active Blood Glucose Monitoring Suppl (CubeaconTOFatsoma) w/Device KITIndications:Type 2 diabetes mellitus with hemoglobin [...] 11 12/27/2021 Active FreeStyle Rose Marie 2 [place] Device Test blood sugars four times daily 1 Each 0 12/27/2021 Active Lantus SoloStar 100 UNIT/ML Subcutaneous Solution Pen-injector (Insulin Glargine)Indications :Type 2 diabetes mellitus with hemoglobin A1c goal of less than 8.0% (HCC) Inject under the skin 15 Units before bedtime. 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 Called mobile as listed, left msg to call [facility] back. [facility] Unable to contact patient - will add patient to schedule for second attempt. Pinky Flores LPN [facility] 02/26/2022,4:37 PM documented in this encounter Plan of Treatment Upcoming Encounters Date Type Specialty Care Team Description 02/27/2022 Pharmacy [facility] Pharmacist, [facility] [address] [facility] [place] [address] 02/27/2022 Office Visit Podiatry Kylie Burroughs Marga [address] [place] [address] [place] [id number] 02/28/2022 Home Visit [facility] Elda Ponce RN [address] [place] [address] 03/06/2022 Home Visit Family Medicine Sara Recinos, [facility] Exhibit Artist [address] [place] [address] 03/17/2022 Office Visit Pharmacy [facility] Erica [address] [place] [address] 03/18/2022 Home Visit [facility] Rica Taylor, RN [address] [place] [address] 06/02/2022 Office Visit Cardiology Arjun Nielsen, Del Gann DO [address] [place] [address] 06/04/2022 Office Visit Family Medicine James Maria, [address] [place] [address] Scheduled Procedures Name Priority Associated Diagnoses Date/Ti [...] Documents on File Type Date Recorded Patient Captain Airline Pilot Expl anation Advanced Directive service a hi [...] Directive Advanced Directive Advanced Directive Care Teams Coffee Roaster Helper Relationship Specialty Start Date End Date James Maria, [address] [facility] [place] [address] PCP - General Family Medicine 06/07/18 documented as of this encounter
--- OUTSIDE RECORDS SUMMARY | 2023-07-31 20:20 | External Medical Summary | Summary of Care ---
Author Name Unknown Organization [facility] [place] [address] Care Team Providers Care Porter Luggage Name Role Phone James Maria DO Primary Care Provider Reason for Referral * Evaluate & Treat - Unlimited Visits (Within 3 days (urgent)) - Authorized Specialty Diagnoses / Procedures Referred By Contac t Referred To Contact Pharmacist / Pharmacy Diagnoses Type 2 diabetes mellitus with hemoglobin A1c goal of less than 8.0% ([facility]) James Maria DO [address] [place] [address] Referral ID Status Reason Start Date Expiration Date Visits Requested Visits Authorized [id number] Authorized Specialty Services Required 12/05/2021 99 99 Question Answer Referral Priority Within 3 days (urgent) Department: Primary Care Reason for Referral: DM Target A1c: < 8 Comments Pharmacist Medication Therapy Management: Minimum frequency patient should be seen in person for medication management: as appropriate per clinical condition and patient status By my signature, I understand that my patient Selvin Sebastian will have his medication therapy managed by the [facility] Med[facility] ([facility]) per established policies, procedures, and protocols. I also certify that this referral may serve as an initiation of service for the management of drug therapy in the above noted patient. [facility] providers will be responsible for scheduling patient visits, obtaining appropriate laboratory studies, and adjusting medication management therapy per patient's need, in addition to those roles spelled out in the clinic policy, procedures, and drug management protocols. I understand that the service provided by the [facility] Clinic is voluntary and have informed patient that they can refuse the service at their discretion. I am aware that the [facility] will provide me with a copy of the patient encounter via my [employer] InGreasebook. I authorize the [facility] to carry out these activities on my behalf. I consider this program to be a necessary part of the patient's medical care. James Maria DO Reason for Visit * Reason Comments Hospital Follow-Up Pt here for hosp f/u , discharged from [facility] on 12/03/2021 for diabetes , bilat lower leg cellulitis. Encounter Details Date Type Department Care Team Description 12/05/2021 Office Visit Family [facility] [address] [address] James Maria DO [address] [address] Type 2 diabetes mellitus with hemoglobin A1c goal of less than 8.0% (HCC)*; Obesity, Class I, BMI 30.0-34.9 (see actual BMI); Type 2 diabetes mellitus with polyneuropathy (HCC); Dyslipidemia; HTN, goal below 130/80; BPH with obstruction/lower urinary tract symptoms; Mixed conductive and sensorineural hearing loss of right ear with restricted hearing of left ear; MARYSOL inhibitor intolerance; Type 2 diabetes mellitus with hemoglobin A1c goal of less than 7.0% (HCC); Chronic atrial fibrillation (HCC) Allergies Active Allergy Reactions Severity Noted Date Comments Lisinopril Edema face/lips/tongue High 04/05/2018 documented as of this encounter (statuses as of 02/27/2022) Medications Medication Sig Dispensed Refills Start Date End Date Status Blood Glucose Monitoring Suppl (NeoStemUCH ULTRA SYSTEM) W/DEVICE KIT Use as directed 4 times a day as needed for Hyperglycemia (high sugar) or Hypoglycemia (low sugar). Use up to four times a day as directed 1 Kit 0 01/29/20 16 Active NeoStemUCH ULTRA BLUE STRP USE TO CHECK GLUCOSE 4 TIMES DAILY 100 Strip 0 11/13/19 17 Active ONETOUCH DELICA LANCETS 33G MISC USE ONE TO CHECK GLUCOSE 4 TIMES DAILY 100 Each 0 11/13/19 17 Active Sildenafil Citrate (VIAGRA) 50 MG TabletIndications: Impotence of organic origin Take 1 Tab by mouth as needed for Erectile Dysfunction. 5 Tab 6 08/24/20 17 Active Glucose Blood (Reliance GlobalcomTOUCH VERIO) STRP Use up to 4 times a day E11.9 300 Strip 3 08/24/20 17 Active Blood Glucose Monitoring Suppl (Reliance GlobalcomTOSitrion VERIO) w/Device KITIndications:Typ e 2 diabetes mellitus with hemoglobin A1c goal of 7.0%-8.0% (HCC) Use as directed. Recommend check glucose levels at least 2 times daily-once in AM before breakfast and once 2 hours after evening meal. 1 Kit 0 05/12/20 18 Active Silver sulfADIAZINE 1 % External Cream (Silvadene) Apply topically to affected area daily. Apply to to the left foot ulcer once daily. Cover with dry dressing. Perform once daily. 50 g 1 04/17/20 21 Active Fluorouracil 5 % External Cream (Efudex) Apply to Scalp, ears, and temples twice a day for three weeks. 40 g 1 07/05/20 21 Active Insulin Syringe-Needle U-100 30G X 5/16" 0.3 MLIndications:Type 2 diabetes mellitus with polyneuropathy (HCC),Type 2 diabetes mellitus with hemoglobin A1c goal of less than 8.0% (HCC) Use up to 4 x a day for insulin dosing E11.9 3 Each 1 09/05/20 21 Active ReliOn Pen Timbo 32G X 4 MM (Insulin Pen Needle)Indications :Type 2 diabetes mellitus with polyneuropathy (HCC) Use as directed with flexpen 100 Each 6 09/05/20 21 022 Discontinued metFORMIN HCl 1000 MG Oral Tablet (Glucophage)Indica tions:Type 2 diabetes mellitus with hemoglobin A1c goal of less than 7.0% (HCC) Take 1 Tab by mouth 2 times a day with morning and evening meals. 180 Tab 1 09/05/20 21 022 Discontinued Atorvastatin Calcium 40 MG Oral Tablet (Lipitor) Take 1 Tab by mouth daily. 90 Tab 1 09/05/20 21 022 Discontinued(Re fill) Aspirin EC 81 MG Oral Tablet Delayed ReleaseIndications :Type 2 diabetes mellitus with diabetic neuropathy, with long-term current use of insulin (HCC) Take 1 Tab by mouth daily. 100 Tab 1 09/05/20 21 022 Discontinued(Me dication List Clean Up) Tamsulosin HCl 0.4 MG Oral Capsule (Flomax) Take 1 Cap by mouth daily. 90 Cap 0 09/05/20 21 022 Discontinued(Re fill) Insulin NPH Isophane & Regular (70-30) 100 UNIT/ML Subcutaneous Suspension (NovoLIN 70/30)Indications: Type 2 diabetes mellitus with hemoglobin A1c goal of less than 8.0% (HCC) Inject under the skin 2 times a day. 50 units before breakfast and 25 units before supper. 30 mL 5 11/20/19 22 022 Discontinued(Re fill) Eliquis 5 MG Oral TabletIndications: Chronic atrial fibrillation (HCC) Take 1 Tablet by mouth 2 times a day. 180 Tablet 3 11/20/19 22 022 Discontinued(Re fill) Furosemide 40 MG Oral Tablet (Lasix)Indications :Chronic atrial fibrillation (HCC) Take 1 Tablet by mouth daily. 90 Tablet 3 11/20/19 22 022 Discontinued(Re fill) Metoprolol Tartrate 25 MG Oral Tablet (Lopressor) Take 25 mg by mouth 2 times a day. 0 11/16/19 22 022 Discontinued(Re fill) Cephalexin 500 MG Oral Capsule (Keflex) Take by mouth 500 mg in the morning AND 500 mg at noon AND 500 mg before bedtime. 0 022 Discontinued(Il dication List Clean Up) Insulin NPH Isophane & Regular (70-30) 100 UNIT/ML Subcutaneous Suspension (NovoLIN 70/30)Indications: Type 2 diabetes mellitus with hemoglobin A1c goal of less than 8.0% (HCC) Inject under the skin 2 times a day. 30 units before breakfast and 15 units before supper. 30 mL 5 12/05/19 22 022 Discontinued(Re fill) metFORMIN HCl ER 500 MG Oral Tablet Extended Release 24 Hour (Glucophage XR)Indications:Typ e 2 diabetes mellitus with hemoglobin A1c goal of less than 8.0% (HCC) Take by mouth 2 Tablets in the morning. 180 Tablet 3 12/05/19 22 022 Discontinued(Re fill) Metoprolol Tartrate 25 MG Oral Tablet (Lopressor) Take by mouth 1 Tablet in the morning AND 1 Tablet before bedtime. 180 Tablet 3 12/05/19 22 022 Discontinued(Re fill) documented as of this encounter (statuses as [...] Reading Time Taken Comments Blood Pressure 122/60 12/05/2021 8:52 AM EST Pulse 60 12/05/2021 8:52 AM EST Temperature 36.7 C (98 F) 12/05/2021 8:52 AM EST Respiratory Rate 16 12/05/2021 8:52 AM EST Oxygen Saturation 96% 12/05/2021 8:52 AM EST Inhaled Oxygen Concentration - - Weight 86.8 kg (191 lb 4 oz) 12/05/2021 8:52 AM EST Height 167.6 cm (5' 6") 12/05/2021 8:52 AM EST p t reports Body Mass Index 30.87 12/05/2021 8:52 AM EST documented in this encounter Patient Instructions * Patient Instructions* James Maria - 12/05/2021 9:06 AM EST BMI (Body Mass Index) is the number obtained by dividing a person's weight in kilograms by his or her height in meters squared. BMI is used in determining obesity. BMI is not used to determine a person's actual percentage of body fat, but it is a good tool to theatre director weight in terms of what is healthy and unhealthy. It is used to identify adults at increased risk for developing weight related medical problems. Estimated body mass index is 30.87 kg/m as calculated from the following: Height as of this encounter: 1.676 m (5' 6"). Weight as of this encounter: 86.8 kg (191 lb 4 oz). Obesity - BMI 30 kg/m2 to [...] message program is also available. Go to Tipser and seethe message under '[employer] News' for more information and enrollment. Patient [...] permitted. Keep Honest, Accurate Food logs: * www.Topio.CAPNIA * www.ZOCKO * If you bite it - write [...] Progress Notes * James Maria DO - 12/05/2021 9:06 AM EST Assessment and plan Type 2 diabetes mellitus with hemoglobin A1c goal of less than 8.0% (HCC) Backing off dosing slightly to prevent lows Home log shows all values between 85-160 which is better Still lots of variability due to his dietary lack of control Would advise patient to get diabetic shoes due to his ongoing labile A1C and impaired foot exam/sensation. - Insulin NPH Isophane & Regular (70-30) 100 UNIT/ML Subcutaneous Suspension (NovoLIN 70/30); Inject under the skin 2 times a day. 30 units before breakfast and 15 units before supper. - metFORMIN HCl ER 500 MG Oral Tablet Extended Release 24 Hour (Glucophage XR); Take by mouth 2 Tablets in the morning. 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 | Check-out note: Please set up cardiology f/u in the next 3-4 weeks Subjective Selvin Sebastian is a 76 year old male that presents for Hospital Follow-Up (Pt here for hosp f/u, discharged from [facility] on 12/03/2021 for diabetes , bilat lower leg cellulitis.) Communication continues to be difficult due to hearing loss Lack of medical understanding Will be getting arranged with Marian at home He had not followed through on the insulin regimen From our last visit, had a hypoglycemic episode at home Objective BP 122/60 | Pulse 60 | Temp 36.7 C (98 F) | Resp 16 | Ht 1.676 m (5' 6") Comment: pt reports | Wt 86.8 kg (191 lb 4 oz) | SpO2 96% | BMI 30.87 kg/m | BSA 2.01 m Body mass index is 30.87 kg/m. BP Readings from Last 3 Encounters: 12/05/21 122/60 11/26/21 108/56 11/22/21 114/60 Wt Readings from Last 3 Encounters: 12/05/21 86.8 kg (191 lb 4 oz) 11/26/21 84.3 kg (185 lb 14.4 oz) 11/20/21 82 kg (180 lb 11.2 oz) Physical Exam Vitals and nursing note reviewed. [...] Normal range of motion and neck supple. Right lower le+ Pitting Edema present. Left lower le+ Pitting Edema present. Lymphadenopathy: Cervical: No cervical adenopathy. Skin: General: Skin is warm and dry. Neurological: General: No focal deficit present. Mental Status: He is alert and oriented to person, place, and time. Total time today including reviewing chart before the visit, pertinent labs, imaging reports, face to face time, and documentation time was 48 minutes. The above was discussed and understanding was expressed. James Maria DO Patient counseling on weight management given. documented in this encounter Nursing Notes * Celina Lau LPN - 12/05/2021 8:55 AM EST The patient has been properly identified by confirmation of name and date of . Chief Complaint Patient presents with Hospital Follow-Up Pt here for hosp f/u, discharged from [facility] on 12/03/2021 for diabetes , bilat lower leg cellulitis. documented in this encounter Plan of Treatment Upcoming Encounters Date Type Specialty Care Team Description 02/28/2022 Home Visit [facility] Elda Ponce RN [address] [address] 03/06/2022 Home Visit Family Medicine Sara Recinos, Community Health Carpet Floor Layer Apprentice [address] [place] [address] 03/17/2022 [facility] [address] [address] 03/18/2022 Home Visit [facility] Rica Taylor RN [address] [address] 06/02/2022 Office Visit Cardiology Del Díaz Jr., DO [address] [address] 06/04/2022 Office Visit Podiatry Kylie Burroughs DPM [address] [place] [address] [address] [address] 06/04/2022 Office Visit Family Medicine James Maria, [address] [address] Scheduled Procedures Name Priority Associated Diagnoses Date/Ti me COLONOSCOPY FLEXIBLE PROXIMA L DIAGNOSTIC Recall Encounter for screening colonoscopy Scheduled Referrals Name Type Priority Associated Diagnoses Orde r Schedule PHARMACIST MEDS THERAPY MGMT REFERRAL OP Referral Within 3 days (urgent) Type 2 diabetes mellitus with hemoglobin A1c goal of less than 8.0% ([facility]) Ordered: 12/05/2021 Health Maintenance Due Date Last Done Comments [...] BMI 30.0-34.9 (see actual BMI) Obesity, unspecified Type 2 diabetes mellitus with polyneuropathy (HCC) Type II or unspecified type diabetes mellitus with neurological manifestations, not stated as uncontrolled Dyslipidemia Other and unspecified hyperlipidemia HTN, goal below 130/80 Unspecified essential hypertension BPH with obstruction/lower urinary tract symptoms Hypertrophy of prostate with urinary obstruction and other lower urinary tract symptoms (LUTS) 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
--- OUTSIDE RECORDS SUMMARY | 2023-07-31 20:20 | External Medical Summary | Summary of Care ---
Author Name Unknown Organization [place] [address] Care Team Providers Care Middle [employer] Director Name Role Phone James Maria DO Primary Care Provider Reason for Visit * Reason Onset Date Comments Letter Requests 02/25/2022 Statement of Cer tifying Physician for Therapeutic Shoes Encounter Details Date Type Department Care Team Description 02/25/2022 Telephone Family Practice [facility] [address] [facility] [address] [id number] James Maria DO [address] [facility] [address] [address] Letter Requests (Statement of Certifying P... Allergies Active Allergy Reactions Severity Noted Date Comments Lisinopril Edema face/lips/tongue High 04/05/2018 documented as of this encounter (statuses as of 02/25/2022) Medications Medication Sig Dispensed Refills Start Date End Date Status Blood Glucose Monitoring Suppl (Wizzard SoftwareTOUCH ULTRA SYSTEM) W/DEVICE KIT Use as directed [...] 5 Tab 6 08/24/2017 Active Glucose Blood (Wizzard SoftwareTOUCH VERIO) STRP Use up to 4 times a day E11.9 300 Strip 3 08/24/2017 Active Blood Glucose Monitoring Suppl ([employer]) w/Device KITIndications:Type 2 diabetes mellitus with hemoglobin [...] 11 12/27/2021 Active FreeStyle Rose Marie 2 Reform Device Test blood sugars four times daily 1 Each 0 12/27/2021 Active Lantus SoloStar 100 UNIT/ML Subcutaneous Solution Pen-injector (Insulin Glargine)Indications :Type 2 diabetes mellitus with hemoglobin A1c goal of less than 8.0% (HCC) Inject under the skin 15 Units before bedtime. 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 Maria to complete. Please call patient at [phone] once complete. documented in this encounter Plan of Treatment Upcoming Encounters Date Type Specialty Care Team Description 02/27/2022 Office Visit Podiatry Kylie Burroughs, DPM [address] [facility] [address] [address] 03/06/2022 Home Visit Family Medicine Sara Recinos, Community Health Agronomy Instructor [address] [place] [address] 03/17/2022 Office Visit Pharmacy [facility] Erica [address] [address] 03/18/2022 Home Visit [facility] Rica Taylor, RN [address] [address] 06/02/2022 Office Visit Cardiology Del Díaz Jr., DO [address] [address] 06/04/2022 Office Visit Family Medicine James Maria DO [address] [address] Scheduled Procedures Name Priority Associated Diagnoses Date/Ti [...] Documents on File Type Date Recorded 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
--- OUTSIDE RECORDS SUMMARY | 2023-07-31 20:20 | External Medical Summary | Summary of Care ---
Author Name Unknown Organization [place] [address] Care Team Providers Care Resources Representative Name Role Phone James Maria Primary Care Provider Reason for Visit * Reason Comments DSMT INITIAL * Evaluate & Treat - Unlimited Visits (Within 10 days (routine)) - Authorized Specialty Diagnoses / Procedures Referred By Collin leigh Referred To Contact Dietitian / Nutrition Services Diagnoses Type 2 diabetes mellitus with polyneuropathy (HCC) Jane Gaytan PA-C [address] [place] [address] Referral ID Status Reason Start Date Expiration Date Visits Requested Visits Authorized [id number] Authorized Specialty Services Required 01/09/2022 [id number] Encounter Details Date Type Department Care Team Description 02/25/2022 Nutrition Services Nutrition, Erica Vogel 132 [facility] [place] [address] Dinah Mohamud RDN 132 [facility] [place] [address] Type 2 diabetes mellitus with hemoglobin A1c goal of less than 8.0% (HCC)*; Type 2 diabetes mellitus with polyneuropathy (HCC); HTN, goal below 130/80; Dyslipidemia; Obesity, Class I, BMI 30.0-34.9 (see actual BMI) Allergies Active Allergy Reactions Severity Noted Date Comments Lisinopril Edema face/lips/tongue High 04/05/2018 documented as of this encounter (statuses as of 02/25/2022) Medications Medication Sig Dispensed Refills Start Date End Date Status Blood Glucose Monitoring Suppl ([employer] ULTRA SYSTEM) W/DEVICE KIT Use as directed [...] 5 Tab 6 08/24/2017 Active Glucose Blood (you[employer]Q - Maps With Life[employer]CH VERIO) STRP Use up to 4 times a day E11.9 300 Strip 3 08/24/2017 Active Blood Glucose Monitoring Suppl (RareCyteIO) w/Device KITIndications:Type 2 diabetes mellitus with hemoglobin [...] 11 12/27/2021 Active FreeStyle Rose Marie 2 [place] Device Test blood sugars four times daily 1 Each 0 12/27/2021 Active Lantus SoloStar 100 UNIT/ML Subcutaneous Solution Pen-injector (Insulin Glargine)Indications :Type 2 diabetes mellitus with hemoglobin A1c goal of less than 8.0% ([facility]) Inject under the skin 15 Units before bedtime. 15 mL 3 01/06/2022 Active Pen [place] 32G X 4 MMIndications:Type 2 diabetes mellitus with hemoglobin A1c goal of less than 8.0% ([facility]) Use as directed . Use [...] - - Weight 84.8 kg (187 lb) 02/25/2022 11:14 AM EDT Height 167.6 cm (5' 6") 02/25/2022 11:14 AM EDT Body Mass Index 30.18 02/25/2022 11:14 AM EDT documented in this encounter Patient Instructions * Patient Instructions* Dinah Mohamud RDN - 02/25/2022 12:00 PM EDT Participant will decrease intake of sugar-sweetened beverages to no more than 2 servings a week. Participant will check glucose levels in AM and before meals and 2 hours after each meal using CGM. documented in this encounter Progress Notes * Dinah Mohamud RDN - 02/25/2022 11:14 AM EDT DIABETES SELF-MANAGEMENT TRAINING/INITIAL NOTE Name: Selvin Sebastian Date: 02/25/2022 Participant is being seen for diabetes. He is accompanied by his . Last order of DIABETES MANAGEMENT EDUCATION (ADA) [...] you like to discuss in your appointment: Having difficulties with CGM and sensor. What insulin regimen he can follow now, as he states he is "in the donut hole" in regards to his insurance coverage. In your words, what is diabetes? asked/not answered Do you believe that diabetes can be controlled? Yes Are you ready to make small changes to help with diabetes self-management: Yes What type of diabetes to you have? Type 2 Diabetes diagnosis year: ~2011 Do you have a family history of diabetes? Yes Have you had any previous diabetes education? Yes Support systems: Spouse Barriers to care: Hard of hearing Special Needs: Other: spouse Psychosocial Screening: Lately have you been feeling down, depressed or hopeless most of the day? No How Do You Manage Stress? Just keep going Within the past 12 months, I worried whether our food would run out before we got money to buy more. No Within the past 12 months, the food we bought just did not last and we did not have money to buy more. No Diabetes Medications: Metformin ER 500 mg 2 tablets in AM Novolog 5 units with each meal Lantus 15 units daily at bedtime Monitoring blood glucose, interpreting and using results Results for orders placed or performed in visit on 02/27/21 HEMOGLOBIN A1C Result Value Ref Range Hemoglobin A1C 13.2 (H) 4.0 - 5.6 % Estimated Average Glucose 332 (H) <126 mg/dL Results for orders placed or performed in visit on 03/13/20 HEMOGLOBIN A1C Result Value Ref Range Hemoglobin A1C 7.4 (H) 4.0 - 5.6 % EST AVG GLUCOSE 166 (H) <126 Results for orders placed or performed in visit on 11/16/19 HEMOGLOBIN A1C Result Value Ref Range Hemoglobin A1C 11.5 (H) 4.0 - 5.6 % EST AVG GLUCOSE 283 (H) <126 Out of target, reviewed above level with him Self-Monitoring Blood Glucose Source of Information: Participant brought meter/CGM. However, CGM sensor is not in place. Frequency of tests: several times throughout the day. No glucose level readings available, however,during our encounter. Hypoglycemia?: Yes, participant has had 2 episodes in past 4 weeks. Treats hypoglycemia by: Regular juice/soda Diet: Breakfast: oatmeal a little milk sometimes with brown sugar or a banana, 2 cups coffee with Splenda Lunch: Tomato soup with 2% milk, grilled cheese or Quarter Pounder with cheese, coffee or water or diet soda, regular Mountain Dew Supper / Dinner: Porterhouse steak, baked potato with sour cream, sometimes a vegetable-peas, coffee Snacks: banana or annalise crackers or PB crackers Beverages: [place] juice or soda or coffee Weight management review: Wt Readings from Last 3 Encounters: 02/25/22 84.8 kg (187 lb) 12/26/21 82.8 kg (182 lb 8 oz) 12/18/21 86.6 kg (191 lb) Weight changes: Stable Physical Activity: Limited due to foot deformity and diabetic neuropathy Do you know the risks of uncontrolled diabetes? Yes ADA STANDARDS OF CARE/BUNDLE MEASURES Therapy Management Plan: Hypertension: BP Readings from Last 3 Encounters: 02/11/22 104/60 01/22/22 115/59 01/09/22 104/62 At goal/target Dyslipidemia: Lab Results Component Value Date/Time LDL CHOLESTEROL (CALCULATED) - [facility] 70 02/27/2021 11:24 AM LDL CHOLESTEROL (CALCULATED) - [facility] 85 06/04/2016 01:48 PM LDL CHOLESTEROL (DIRECT MEASURE) - [facility] 53 01/11/2018 11:20 AM Results for orders placed or performed in visit on 02/27/21 LIPID PANEL WITH DIRECT LDL IF TRIGLYCERIDE IS ELEVATED Result Value Ref Range Triglycerides 65 <=174 mg/dL Cholesterol 125 <200 mg/dL HDL Cholesterol 42 >39 mg/dL Non-HDL Cholesterol 83 <=159 mg/dL LDL Cholesterol 70 <=129 mg/dL At goal/target Taking Statin/Antilipemic Kidney function review: ESTIMATED GLOMERULAR FILTRATION RATE - Value Ref Range Status 02/27/2021 72.4 >=60.0 mL/min Final Comment: If patient is , multiply estimated GFR by 1.159. 06/01/2020 >60.0 >60 Final Comment: If patient is , multiply estimated GFR by 1.159. 2013 >60.0 >60 mL/min Final ALBUMIN / CREATININE RATIO, URINE - Value Ref Range Status 03/13/2020 23 <30 mg/g creat Final Comment: Normal: <30 mg/g creatinine High: 30-300 mg/g creatinine Very High: >300 mg/g creatinine Nephrotic: >2200 mg/g creatinine No results found for: PROTEIN/ CREATININE RATIO Not addressed, no current level available Diabetes Bundle / Standards of Care: Not fully addressed DSMT Initial Visit Assessment of Content Areas: Choose the answer that represents the participant's competency in each area. All need to be assessed, N/C, or N/A (with reason) at initial. Areas taught must match intervention. If content area not assessed and/or intervened today, it will be deferred to future session. Diabetes disease process and treatment process: Needs instruction (1) Incorporating nutrition management into lifestyle: Needs instruction (1) Incorporating physical activity into lifestyle: Needs instruction (1) Using medications safely: Needs review (2) Monitoring blood glucose, interpreting and using results: Needs instruction (1) Prevention, detection, and treatment of acute complications: Needs instruction (1) Prevention, detection, and treatment of chronic complications: Needs review (2) Developing strategies to address psychosocial issues: Needs instruction (1) Developing strategies to promote health/change behavior: Needs instruction (1) DSMT/ Diabetes MNT intervention: Nutrition: Taught and had participant identify foods that contain carbohydrates. Encouraged participant to limit sugar-sweetened beverages. Also encouraged him to limit CHO intake to 45 grams per meal. He admits to occasionally drinking regular soda and some other foods with sugar. Medication: Participant concerned about being able to afford insulin. States he will be paying hundreds of dollars for his insulin soon, saying he is in the donut hole with his medication coverage. Discussed need for insulin with him. Told him I would contact his [facility] Pharmacist to discuss this issue with him. Monitoring: Participant states he doesn't check his glucose levels with a meter because he cannot obtain an adequate drop of blood. Also complains of his fingers becoming sore with frequent checking.He is being followed by the [facility] Clinic. Reviewed basic principles of CGM monitoring. Discussed withhim that his reader needs to be in close proximity of his sensor. States recently an alarm was going off saying that the sensor could not be read by the reader. Discussed that it's important to charge reader regularly. He states he often turns off his reader before going to bed. Encouraged him to leave reader on, saying that this is the purpose of the system, to monitor glucose levels throughout the day, including at night. Chronic Complications: Participant asking about getting his COVID booster. Appointment for this setup here at [facility]. Participant Selected Behavioral Objective: Nutrition: To improve blood glucose control I will decrease intake of sugar- sweetened beverages to no more than 2 servings a week. Monitoring: To identify blood glucose trends, I will check glucose levels in AM and before meals and 2 hours after each meal using the CGM. Recommended Medication Changes: None Metformin ER 500 mg 2 tablets daily Novolog 5 units with each meal Lantus 15 units daily at bedtime Education materials given to participant/caregiver and reviewed during today's visit: Meal and snack ideas for diabetes Tips for eating well to manage blood sugars Diabetes Self-Management Support:: Hotlines: 1-174-YAZYJZWW ( ) Possible Future Topics: Content areas that were not assessed in first visit: All content areas have been assessed. Time Spent With Patient: Time in: 11:11 AM Time out: 12:15 PM Billing: DSMT: 1 Hour Plan for Return: 3 months Participant provided with contact information for Diabetes Care and Post Form Remover. Dinah Mohamud RDN, [facility] Diabetes Care and Post Form Remover documented in this encounter Plan of Treatment Upcoming Encounters Date Type Specialty Care Team Description 02/26/2022 Pharmacy [facility] Pharmacist, Anatoly [facility] [address] [facility] [place] [address] 02/27/2022 Office Visit Podiatry Kylie Burroughs DPM [address] [place] [address] 03/06/2022 Home Visit Family Medicine Sara Recinos, Community [facility] Financial Operations Consultant [address] [facility] [address] 03/17/2022 Office Visit Pharmacy [facility] Vogel Erica [address] [place] [address] 03/18/2022 Home Visit [facility] Rica Taylor, RN [address] [place] [address] 06/02/2022 Office Visit Cardiology Del Díaz Jr., DO [address] [place] [address] 06/04/2022 Office Visit Family Medicine James Maria, DO [address] [place] [address] Scheduled Procedures Name Priority Associated Diagnoses Date/Ti me COLONOSCOPY FLEXIBLE PROXIMA L DIAGNOSTIC Recall Encounter for screening colonoscopy Scheduled Referrals Name Type Priority Associated Diagnoses Orde r Schedule NUTRITION-CLINICAL DIETITIAN REFERRAL OP Referral Within 10 days (routine) Type 2 diabetes mellitus with polyneuropathy (HCC) Ordered: 01/09/2022 Health Maintenance Due Date Last Done Comments [...] with neurological manifestations, not stated as uncontrolled HTN, goal below 130/80 Unspecified essential hypertension Dyslipidemia Other and unspecified hyperlipidemia Obesity, Class I, BMI 30.0-34.9 (see actual BMI) Obesity, unspecified documented in this encounter Advance Directives Documents on File Type Date Recorded 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
--- OUTSIDE RECORDS SUMMARY | 2023-07-31 20:20 | External Medical Summary | Summary of Care ---
Author Name Unknown Organization [place] [address] Care Team Providers Care Public Affairs Specialist Name Role Phone James Maria Primary Care Provider Reason for Visit * Reason Onset Date Comments Appointment 02/26/2022 Encounter Details Date Type Department Care Team Description 02/26/2022 Telephone [facility] [place], [place] [address] [place], [place] [id number] Appointments, Patient Appointment Allergies Active Allergy Reactions Severity Noted [...] 3 08/24/2017 Active Blood Glucose Monitoring Suppl ([employer] VERIO) w/Device KITIndications:Type 2 diabetes mellitus with [...] 12/27/2021 Active FreeStyle Rose Marie 2 [place] Device Test blood sugars four times daily 1 Each 0 12/27/2021 Active Lantus SoloStar 100 UNIT/ML Subcutaneous Solution Pen-injector (Insulin Glargine)Indications :Type 2 diabetes mellitus with hemoglobin A1c goal of less than 8.0% (HCC) Inject under the skin 15 Units before bedtime. 15 mL 3 01/06/2022 Active Pen [place] 32G X 4 MMIndications:Type 2 diabetes mellitus [...] with fat layer exposed 01/09/2022 Atherosclerosis of [place] band coronary arter y without angina pectoris [...] * Telephone Encounter - MICHEL Estrada - 02/26/2022 9:35 AM EDT Called to let know of apptmt today at 130 with Melina Ponce to assist in using his [employer] Rose Marie 2 andwife said she will find out if he will be at [facility] address of other one and if not at [facility], will cb so I can notate on appt for the nurse, otherwise it will be the [facility] address documented in this encounter Plan of Treatment Upcoming Encounters Date Type Specialty Care Team Description 02/26/2022 [facility] Elda Ponce RN [address] [place] [address] 02/27/2022 Office Visit Podiatry Kylie Burroughs, [address] [address] 03/06/2022 Home Visit Family Medicine Sara Recinos, Community Health Shank Burnisher [address] [place] [address] 03/17/2022 Office Visit Pharmacy [facility] Erica [address] [place] [address] 03/18/2022 Home Visit [facility] Rica Taylor RN 132 [place] [address] 06/02/2022 Office Visit Cardiology Del Díaz Jr., DO [address] [place] [address] 06/04/2022 Office Visit Family Medicine James Maria, 132 [place] [address] Scheduled Procedures Name Priority Associated Diagnoses Date/Ti [...] Documents on File Type Date Recorded Patient Account [employer] Expl anation Advanced Directive service a hi [...] Directive Advanced Directive Advanced Directive Care Teams Public Affairs Specialist Relationship Specialty Start Date End Date James Maria DO 132 [place] [address] PCP - General Family Medicine 06/07/18 documented as of this encounter
--- OUTSIDE RECORDS SUMMARY | 2023-07-31 20:20 | External Medical Summary | Summary of Care ---
Author Name Unknown Organization [place] [address] Care Team Providers Care Stock Car Driver Name Role Phone James Maria Primary Care Provider Reason for Visit * Reason Onset Date Comments Appointment 02/26/2022 Encounter Details Date Type Department Care Team Description 02/26/2022 Telephone [facility] [place] [place] [address] [place] [address] Services, Scheduling [address] [place] [address] Appointment Allergies Active Allergy Reactions Severity Noted [...] 3 08/24/2017 Active Blood Glucose Monitoring Suppl ([employer]) w/Device KITIndications:Type 2 diabetes mellitus with hemoglobin [...] 11 12/27/2021 Active FreeStyle Rose Marie 2 [place] Device Test blood sugars four times daily 1 Each 0 12/27/2021 Active Lantus SoloStar 100 UNIT/ML Subcutaneous Solution Pen-injector (Insulin Glargine)Indications :Type 2 diabetes mellitus with hemoglobin A1c goal of less than 8.0% (HCC) Inject under the skin 15 Units before bedtime. 15 mL 3 01/06/2022 Active Pen [place] 32G X 4 MMIndications:Type 2 diabetes mellitus [...] with fat layer exposed 01/09/2022 Atherosclerosis of [place] coronary arter y without angina pectoris 01/09/2022 [...] Miscellaneous Notes * Telephone Encounter - MICHEL Crain - 02/26/2022 4:07 PM EDT As requested by RNCM Kris- rescheduled today's visit to Thursday due to RNCM being delayed by another visit. Patient agreed with 02/28/2022 at 2pm. documented in this encounter Plan of Treatment Upcoming Encounters Date Type Specialty Care Team Description 02/27/2022 Office Visit Podiatry Kylie Burroughs, DPM [address] [facility] [place] [id number] 02/28/2022 Home Visit [facility] Elda Ponce RN 132 [place] [address] 03/06/2022 Home Visit Family Medicine Sara Recinos, Community Health Sailing Master [address] [place] [address] 03/17/2022 Office Visit Pharmacy [facility] [address] [place] [address] 03/18/2022 Home Visit [facility] Rica Taylor RN [address] [place] [address] 06/02/2022 Office Visit Cardiology Del Díaz Jr., DO [address] [place] [address] 06/04/2022 Office Visit Family Medicine James Maria DO [address] [place] [address] Scheduled Procedures Name Priority Associated Diagnoses Date/Ti [...] on File Type Date Recorded Patient Manager Document Expl anation Advanced Directive service a hi [...] Directive Advanced Directive Advanced Directive Care Teams Stock Car Driver Relationship Specialty Start Date End Date James Maria DO 132 [facility] [place] [address] PCP - General Family Medicine 06/07/18 documented as of this encounter
--- OUTSIDE RECORDS SUMMARY | 2023-07-31 20:20 | External Medical Summary | Summary of Care ---
Author Name Unknown Organization [place] [address] Care Team Providers Care Human Resources Trainee Name Role Phone James Maria Primary Care Provider Encounter Details Date Type Department Care Team Description 02/25/2022 Immunization Pharmacy, [facility] 132 [facility] [place] [address] [place] [address] Vaccine Pharmacy [facility] [address] [facility] [place] [address] Encounter for immunization* Allergies Active Allergy Reactions Severity Noted Date [...] 5 Tab 6 08/24/2017 Active Glucose Blood ([employer]OCorNova VERnew test company) STRP Use up to 4 times a day E11.9 300 Strip 3 08/24/2017 Active Blood Glucose Monitoring Suppl (Med Access) w/Device KITIndications:Type 2 diabetes mellitus with hemoglobin [...] 11 12/27/2021 Active FreeStyle Rose Marie 2 [place] Device Test blood sugars four times daily 1 Each 0 12/27/2021 Active Lantus SoloStar 100 UNIT/ML Subcutaneous Solution Pen-injector (Insulin Glargine)Indications :Type 2 diabetes mellitus with hemoglobin A1c goal of less than 8.0% (HCC) Inject under the skin 15 Units before bedtime. 15 mL 3 01/06/2022 Active Pen [place] 32G X 4 MMIndications:Type 2 diabetes mellitus [...] with fat layer exposed 01/09/2022 Atherosclerosis of [place] coronary arter y without angina pectoris 01/09/2022 [...] Description 02/27/2022 Office Visit Podiatry Kylie Burroughs, REMEDIOS [address] [facility] [place] [address] 03/06/2022 Home Visit Family Medicine Sara Recinos, Community Health Attic Blower [address] [place] [address] 03/17/2022 Office Visit Pharmacy [facility] Erica [address] [place] [address] 03/18/2022 Home Visit [facility] Rica Taylor RN [address] [place] [address] 06/02/2022 Office Visit Cardiology Del Díaz Jr., DO [address] [place] [address] 06/04/2022 Office Visit Family Medicine James Maria, [address] [place] [address] Scheduled Procedures Name Priority Associated Diagnoses Date/Ti [...] this encounter Visit Diagnoses Diagnosis Encounter for immunization- Primary Need for other specified prophylactic vaccination against single bacterial disease documented in this encounter Advance Directives Documents on File Type Date Recorded 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
--- OUTSIDE RECORDS SUMMARY | 2023-07-31 20:20 | External Medical Summary | Summary of Care ---
Author Name Unknown Organization [place] [address] Care Team Providers Care Adjunct Nursing Faculty Name Role Phone Crow James Sophy Primary Care Provider Reason for Visit * Reason Comments Medication Management Encounter Details Date Type Department Care Team Description 02/21/2022 Pharmacy [facility], [facility] [address] [place] [address] Pharmacist, [facility] [address] [place] [address] Type 2 diabetes mellitus (HCC)* Allergies Active Allergy Reactions Severity Noted Date Comments Lisinopril Edema face/lips/tongue High 04/05/2018 documented as of this encounter (statuses as of 02/24/2022) Medications Medication Sig Dispensed Refills Start Date End Date Status Blood Glucose Monitoring Suppl (Privacy AnalyticsTOUCH ULTRA SYSTEM) W/DEVICE KIT Use as directed 4 times a day as needed for Hyperglycemia (high sugar) or Hypoglycemia (low sugar). Use up to four times a day as directed 1 Kit 0 01/29/2016 Active Privacy AnalyticsTOUCH ULTRA BLUE STRP USE TO CHECK GLUCOSE 4 TIMES DAILY 100 Strip 0 11/13/2016 Active ONETOUCH DELICA LANCETS 33G MISC USE ONE TO CHECK GLUCOSE 4 TIMES DAILY 100 Each 0 11/13/2016 Active Sildenafil Citrate (VIAGRA) 50 MG TabletIndications:Im potence of organic origin Take 1 Tab by mouth as needed for Erectile Dysfunction. 5 Tab 6 08/24/2017 Active Glucose Blood (Privacy AnalyticsTOUCH VERIO) STRP Use up to 4 times a day E11.9 300 Strip 3 08/24/2017 Active Blood Glucose Monitoring Suppl (Privacy AnalyticsTOYoogaia) w/Device KITIndications:Type 2 diabetes mellitus with hemoglobin [...] 11 12/27/2021 Active FreeStyle Rose Marie 2 [place] Device Test blood sugars four times daily 1 Each 0 12/27/2021 Active Lantus SoloStar 100 UNIT/ML Subcutaneous Solution Pen-injector (Insulin Glargine)Indications :Type 2 diabetes mellitus with hemoglobin A1c goal of less than 8.0% (HCC) Inject under the skin 15 Units before bedtime. 15 mL 3 01/06/2022 Active Pen [place] 32G X 4 MMIndications:Type 2 diabetes mellitus [...] as of this encounter (statuses as of 02/24/2022) Active Problems Problem Noted Date Diabetic ulcer [...] as of this encounter (statuses as of 02/24/2022) Resolved Problems Problem Noted Date Resolved Date [...] as of this encounter (statuses as of 02/24/2022) Immunizations Name Administration Dates Next Due COVID-19 mRNA, LNP-s, No Pre serve, 2-Dose Series (Moderna) 03/24/2021,02/22/2021 Pneumococcal Conjugate Vacc, 13 Valent (Prevnar) 12/24/2015 [...] Progress Notes * Pinky Flores LPN - 02/21/2022 9:36 AM EDT F/u re rose marie. Called mobile as listed, left msg to call GA back. Appears Rose Marie was delivered, wanted to check on same and if pt was able to set up. If not, can havenurse assist with same when she comes out next on 03/18. [facility] 02/21/2022,9:36 AM documented in this encounter Plan of Treatment Upcoming Encounters Date Type Specialty Care Team Description 02/25/2022 Nutrition Services Nutrition Services Dinah Mohamud RDN [address] [address] 02/27/2022 Office Visit Podiatry Kylie Burroughs, REMEDIOS [address] [place], [place] [address] [address] 03/06/2022 Home Visit Family Medicine Sara Recinos, Community Health Bus Aide [address] [place] [address] 03/17/2022 Office Visit Pharmacy [facility] Erica [address] [address] 03/18/2022 Home Visit [facility] Rica Taylor, RN [address] [address] 06/02/2022 Office Visit Cardiology Del Díaz Jr., DO [address] [address] 06/04/2022 Office Visit Family Medicine James Maria DO [address] [address] Scheduled Procedures Name Priority Associated Diagnoses Date/Ti me COLONOSCOPY FLEXIBLE PROXIMA L DIAGNOSTIC Recall Encounter for screening colonoscopy Health Maintenance Due Date Last Done Comments Yearly B-12 11/16/2020 11/16/2019, 01/11/2018 Depression Screening, Annual for Pts 12 and Over 11/21/2020 11/21/2019 DIABETES-URINE ALBUMIN/CREATININE EVERY 12 MONTHS 03/13/2021 03/13/2020, 12/13/2018, 01/11/2018, Additional history exists COVID-19 Vaccine (3 - Booster for Moderna series) 08/24/2021 03/24/2021, 02/22/2021 DIABETES-HGBA1C EVERY 6 MONTHS 08/29/2021 02/27/2021, 03/13/2020, [...] Documents on File Type Date Recorded 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
--- OUTSIDE RECORDS SUMMARY | 2023-07-31 20:20 | External Medical Summary | Summary of Care ---
Author Name Unknown Organization [place] [address] Care Team Providers Care Actuarial Internship Name Role Phone James Maria DO Primary Care Provider Reason for Visit * Reason Onset Date Comments Letter Requests 02/25/2022 Statement of Cer tifying Physician for Therapeutic Shoes Encounter Details Date Type Department Care Team Description 02/25/2022 Telephone Family Practice [facility] [address] [facility] [place] [address] James Maria DO [address] [facility] [place] [address] Letter Requests (Statement of Certifying P... Allergies Active Allergy Reactions Severity Noted Date Comments Lisinopril Edema face/lips/tongue High 04/05/2018 documented as of this encounter (statuses as of 02/25/2022) Medications Medication Sig Dispensed Refills Start Date End Date Status Blood Glucose Monitoring Suppl (Shenick Network SystemsTOUCH ULTRA SYSTEM) W/DEVICE KIT Use as directed [...] 5 Tab 6 08/24/2017 Active Glucose Blood (Shenick Network SystemsTOUCH VERIO) STRP Use up to 4 times a day E11.9 300 Strip 3 08/24/2017 Active Blood Glucose Monitoring Suppl (Sentilla) w/Device KITIndications:Type 2 diabetes mellitus with hemoglobin [...] 11 12/27/2021 Active FreeStyle Rose Marie 2 [place] Device Test blood sugars four times daily 1 Each 0 12/27/2021 Active Lantus SoloStar 100 UNIT/ML Subcutaneous Solution Pen-injector (Insulin Glargine)Indications :Type 2 diabetes mellitus with hemoglobin A1c goal of less than 8.0% (HCC) Inject under the skin 15 Units before bedtime. 15 mL 3 01/06/2022 Active Pen [place] 32G X 4 MMIndications:Type 2 diabetes mellitus [...] Miscellaneous Notes * Telephone Encounter - MANUEL Nicholson - 02/25/2022 7:03 PM EDT Form placed in Dr. Maria's mailbox. * Telephone Encounter - MICHEL Davila - 02/25/2022 12:35 PM EDT Patients dropped off Statement of Certifying Physician for Therapeutic Shoes for Dr. Maria to complete. Please call patient at [phone] once complete. documented in this encounter Plan of Treatment Upcoming Encounters Date Type Specialty Care Team Description 02/26/2022 Pharmacy [facility] Pharmacist, [facility] [address] [facility] [place] [address] 02/27/2022 Office Visit Podiatry Kylie Burroughs, DPMarga [address] [facility] [place] [phone] 03/06/2022 Home Visit Family Medicine Sara Recinos, Community Health Assembler [employer] [address] [place] [address] 03/17/2022 Office Visit Pharmacy [facility] Erica [address] [address] 03/18/2022 Home Visit [facility] Rica Taylor, RN [address] [place] [address] 06/02/2022 Office Visit Cardiology Arjun Nielsen, Del Gann DO [address] [address] 06/04/2022 Office Visit Family Medicine James Maria, DO [address] [address] Scheduled Procedures Name Priority Associated Diagnoses Date/Ti [...] Documents on File Type Date Recorded 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
--- OUTSIDE RECORDS SUMMARY | 2023-07-31 20:21 | External Medical Summary | Summary of Care ---
Author Name Unknown Organization [place] [address] Care Team Providers Care Bindery Helper Name Role Phone James Maria Primary Care Provider Reason for Visit * Reason Onset Date Comments [facility]: Maintenance 02/13/2022 Encounter Details Date Type Department Care Team Description 02/13/2022 Telephone [facility], [facility] [address] [facility] [place] [address] [facility], Nurse [facility] [address] [facility] [place] [address] [facility]: Maintenance Allergies Active Allergy Reactions Severity Noted Date Comments Lisinopril Edema face/lips/tongue High 04/05/2018 documented as of this encounter (statuses as of 02/20/2022) Medications Medication Sig Dispensed Refills Start Date [...] 5 Tab 6 08/24/2017 Active Glucose Blood (StartSamplingTOUCH VERMandata (Management & Data Services)) STRP Use up to 4 times a day E11.9 300 Strip 3 08/24/2017 Active Blood Glucose Monitoring Suppl (myBarrister) w/Device KITIndications:Type 2 diabetes mellitus with hemoglobin [...] 11 12/27/2021 Active FreeStyle Rose Marie 2 [place] Device Test blood sugars four times daily 1 Each 0 12/27/2021 Active Lantus SoloStar 100 UNIT/ML Subcutaneous Solution Pen-injector (Insulin Glargine)Indications :Type 2 diabetes mellitus with hemoglobin A1c goal of less than 8.0% (HCC) Inject under the skin 15 Units before bedtime. 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 You can disregard form. Thanks! Pinky Flores LPN [facility] 02/20/2022,5:08 PM * Telephone Encounter - BARTOLO Bentley - 02/13/2022 4:53 PM EDT Sharing with Rosalie Flores--was supplier changed? Do I need to do this form? * Telephone Encounter - Aida Valerio RN - 02/13/2022 12:34 PM EDT Call received from Gabriela at [facility]. States that they received from for the CGM on 01/28/22 butit was not completely filled out. Scan noted in pt files tab. Requesting to have provider answer all questions on the form and send back to them via fax. documented in this encounter Plan of Treatment Upcoming Encounters Date Type Specialty Care Team Description 02/25/2022 Nutrition Services Nutrition Services Dinah Mohamud[facility] AL[facility]E [facility] [address] 02/27/2022 Office Visit Podiatry Kylie Burroughs, [facility] [address] [facility] [address] 03/06/2022 Home Visit Family Medicine aSra Recinos, Community Health Switchboard Wirer [address] [place], [place] [id number] 03/17/2022 Office Visit Pharmacy [facility] Erica [address] [address] 03/18/2022 Home Visit [facility] Rica Taylor, RN [address] [address] 06/02/2022 Office Visit Cardiology Del Díaz Jr., [address] [address] 06/04/2022 Office Visit Family Medicine James Maria, [address] [address] Scheduled Procedures Name Priority Associated Diagnoses Date/Ti [...] Documents on File Type Date Recorded Patient Light Bulb Tester Expl 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 Directive Advanced Directive Advanced Directive Care Teams Bindery Helper Relationship Specialty Start Date End Date James Maria DO 132 [facility] [place] [address] PCP - General Family Medicine 06/07/18 documented as of this encounter
--- OUTSIDE RECORDS SUMMARY | 2023-07-31 20:21 | External Medical Summary | Summary of Care ---
Author Name Unknown Organization [place] [address] Care Team Providers Care Latin Professor Name Role Phone James Maria DO Primary Care Provider Reason for Visit * Reason Onset Date Comments Health Maintenance 02/10/2022 Encounter Details Date Type Department Care Team Description 02/10/2022 Telephone Family Practice [facility] [address] [facility] [place] [phone] James Maria DO 132 [facility] [place] [id number] Health Maintenance Allergies Active Allergy Reactions Severity Noted Date Comments Lisinopril Edema face/lips/tongue High 04/05/2018 documented as of this encounter (statuses as of 02/10/2022) Medications Medication Sig Dispensed Refills Start Date End Date Status Blood Glucose Monitoring Suppl (Alpha Payments CloudTOUCH ULTRA SYSTEM) W/DEVICE KIT Use as directed [...] 5 Tab 6 08/24/2017 Active Glucose Blood (Alpha Payments CloudTOZipit Wireless) STRP Use up to 4 times a day E11.9 300 Strip 3 08/24/2017 Active Blood Glucose Monitoring Suppl (FreeDrive) w/Device KITIndications:Type 2 diabetes mellitus with hemoglobin [...] 11 12/27/2021 Active FreeStyle Rose Marie 2 [place] Device Test blood sugars four times daily 1 Each 0 12/27/2021 Active Lantus SoloStar 100 UNIT/ML Subcutaneous Solution Pen-injector (Insulin Glargine)Indications :Type 2 diabetes mellitus with hemoglobin A1c goal of less than 8.0% (HCC) Inject under the skin 15 Units before bedtime. 15 mL 3 01/06/2022 Active Pen [place] 32G X 4 MMIndications:Type 2 diabetes [...] as of this encounter (statuses as of 02/10/2022) Active Problems Problem Noted Date Diabetic ulcer [...] as of this encounter (statuses as of 02/10/2022) Resolved Problems Problem Noted Date Resolved Date [...] as of this encounter (statuses as of 02/10/2022) Immunizations Name Administration Dates Next Due COVID-19 [...] encounter Miscellaneous Notes * Telephone Encounter - Jeannie L Shriner, DIRECTOR OF GRANTS - 02/10/2022 8:19 AM EDT Care Gaps Comprehensive Care Outreach Last Office/Telemedicine Visit: 12/05/2021 (in office), Visit date not found (telemedicine) Last Office/Telemedine Visit Annual Wellness: Next Office Visit: 06/04/2022 Reviewed Health Maintenance below: Health Maintenance Care needs: Frequency: Last completed: Due next: Yearly B-12 Vitamin Test 1 Year 11/16/2019 11/16/2020 Yearly Urine Albumin/creatinine Test 1 Year 03/13/2020 03/13/2021 Covid-19 Vaccine (#3[3 - Booster for Moderna series) Series 03/24/2021 08/24/2021 A1c Blood Sugar Test - Every 6 Months 6 Months 02/27/2021 08/29/2021 Diphtheria, Tetanus & Pertussis Vaccines (#2[2 - Td or Tdap) Series 10/21/2011 10/21/2021 Yearly Foot Exam 1 Year 02/28/2021 02/28/2022 Dilated Eye Exam (By Eye Doctor Or Retinal Camera) 1 Year 03/04/2021 03/04/2022 Yearly Basic Metabolic Panel 1 Year 11/08/2021 11/08/2022 Care Gap Outreach Action Taken: Left message documented in this encounter Plan of Treatment Upcoming Encounters Date Type Specialty Care Team Description 02/11/2022 Home Visit [facility] Rica Taylor RN [address] [address] 02/17/2022 Office Visit Pharmacy [facility] Erica [address] [address] 02/25/2022 Nutrition Services Nutrition Services Dinah Mohamud RDN [address] [place] [address] 02/27/2022 Office Visit Podiatry Kylie Burroughs DPM [address] [facility] [place] [address] 03/06/2022 Home Visit Family Medicine Sara Recinos, Community Health Regional Vice President Surgical Sales [address] [place] [address] 06/02/2022 Office Visit Cardiology Del Díaz Jr., DO [address] [facility] [place] [address] 06/04/2022 Office Visit Family Medicine James Maria, DO [address] [place] [address] Scheduled Procedures Name Priority Associated Diagnoses Date/Ti [...] Documents on File Type Date Recorded Patient Home Organizer Expl anation Advanced Directive service a hi [...] Directive Advanced Directive Advanced Directive Care Teams Latin Professor Relationship Specialty Start Date End Date James Maria DO [address] [place] [address] PCP - General Family Medicine 06/07/18 documented as of this encounter
--- OUTSIDE RECORDS SUMMARY | 2023-07-31 20:21 | External Medical Summary | Summary of Care ---
Author Name Unknown Organization [place] [address] Care Team Providers Care Python Django Developer Name Role Phone James Maria Primary Care Provider Reason for Visit * Reason Comments Dosage Adjustment In Person (Anticoag Cl inic) Diabetes Management Encounter Details Date Type Department Care Team Description 02/17/2022 Office Visit [facility] [place] [address] [facility] [address] Type 2 diabetes mellitus with hemoglobin A1c goal of less than 8.0% ([facility])* Allergies Active Allergy Reactions Severity Noted Date Comments Lisinopril Edema face/lips/tongue High 04/05/2018 documented as of this encounter (statuses as of 02/17/2022) Medications Medication Sig Dispensed Refills Start Date [...] 5 Tab 6 08/24/2017 Active Glucose Blood (Onsite CareTOUCH VERIO) STRP Use up to 4 times a day E11.9 300 Strip 3 08/24/2017 Active Blood Glucose Monitoring Suppl (Onsite CareTOSecureAuth VERIO) w/Device KITIndications:Type 2 diabetes mellitus with [...] 11 12/27/2021 Active FreeStyle Rose Marie 2 [place] Device Test blood sugars four times daily 1 Each 0 12/27/2021 Active Lantus SoloStar 100 UNIT/ML Subcutaneous Solution Pen-injector (Insulin Glargine)Indications :Type 2 diabetes mellitus with hemoglobin A1c goal of less than 8.0% (HCC) Inject under the skin 15 Units before bedtime. 15 mL 3 01/06/2022 Active Pen [place] 32G X 4 MMIndications:Type 2 diabetes mellitus [...] as of this encounter (statuses as of 02/17/2022) Active Problems Problem Noted Date Diabetic ulcer of toe of rig ht foot associated with type 2 diabetes mellitus, with fat layer exposed 01/09/2022 Atherosclerosis of j[place] coronary arter y without angina pectoris 01/09/2022 [...] as of this encounter (statuses as of 02/17/2022) Resolved Problems Problem Noted Date Resolved Date [...] as of this encounter (statuses as of 02/17/2022) Immunizations Name Administration Dates Next Due COVID-19 [...] as of this encounter Progress Notes * Arron Vang, [facility] - 02/17/2022 3:07 PM EDT Medication Therapy Disease [facility] - Diabetes Management Progress Note Selvin Sebastian, identified by name and date of , is a 76 year old male being seen for diabetes management/education. Patient presents for return diabetic visit. DIABETES: Current diabetic medications: STOP: Insulin NPH 70/30 30 units before breakfast and 15 units before dinner START: Lantus 15 units QHS START: Humalog 5 untis with meals Metformin ER 500 mg 2 tabs AM Medication Injection Site: Abdomen Lifestyle: Diet: unchanged Glucose Review/SMBG: Unavailable patient not checking fingersticks due to sore fingers Hypoglycemia: Does your blood sugar go below 70 mg/dL? No Hyperglycemia symptoms present: none Recent Labs Units 02/27/21 1124 03/13/20 0926 HEMOGLOBIN A1C - [facility] % 13.2* 7.4* Recent Labs Units 11/08/21 0000 02/27/21 1124 06/01/20 1518 ESTIMATED GLOMERULAR FILTRATION RATE - [facility] mL/min -- 72.4 -- EGFR-OUTSIDE LAB ML/MIN 52.0 -- -- CREATININE - [facility] mg/dL -- 1.0 1.1 CREATININE-OUTSIDE LAB MG/DL 1.32 -- -- HYPERTENSION: Patient on ACEi/ARB: no, BP controlled BP Readings from Last 3 Encounters: 02/11/22 104/60 01/22/22 115/59 01/09/22 104/62 Blood pressure at goal: yes HYPERLIPIDEMIA: Patient is taking moderate or high intensity statin: yes HEALTH MAINTENANCE REVIEW: Health Maintenance Due Topic Date Due Yearly B-12 11/16/2020 Depression Screening, Annual for Pts 12 and Over 11/21/2020 DIABETES-URINE ALBUMIN/CREATININE EVERY 12 MONTHS 03/13/2021 COVID-19 Vaccine (3 - Booster for Moderna series) 08/24/2021 DIABETES-HGBA1C EVERY 6 MONTHS 08/29/2021 DTaP,Tdap,and Td Vaccines (2 - Td or Tdap) 10/21/2021 DIABETES-FOOT EXAM 02/28/2022 DIABETES-EYE EXAM 03/04/2022 ASSESSMENT & PLAN: No diagnosis found. Ambulatory Continuous Monitoring: Continuous Glucose Monitor Placement Summary Patient Owned Device: Yes Brand: Rose Marie , CGM placed 02/17/22 Patient enrolled in diabetes education program >/= 3 months: Yes Patient continues to monitor BG levels in conjunction with CGM wear a minimum of 3 checks per day and completes CGM calibration if warranted for device. Patient with MDI insulin regimen OR insulin pump wear: yes BG Readings Blood sugars not available. Will bring patient back in 4 weeks to check BG readingsfrom rose marie device that was placed today. Medications Reviewed current regimen, patient is adherent to regimen. NO changes, will wait until patient returns in 4 weeks to check BG readings from rose marie device that was placed today. Diet, Exercise, Lifestyle No significant lifestyle changes since last visit. Patient is agreeable to SMBG 4 time(s) daily with CGM Patient aware to contact clinic if any hypoglycemia before next visit. MEDICATION CHANGES: no change Diabetic Medications: STOP: Insulin NPH 70/30 30 units before breakfast and 15 units before dinner START: Lantus 15 units QHS START: Humalog 5 untis with meals Metformin ER 500 mg 2 tabs AM HEALTH MAINTENANCE INTERVENTIONS: Labs: Ordered & Scheduled: HgA1c and BMP/CMP Immunizations: Up to Date Foot Exam: Up to Date Eye Exam: Up to Date Annual Wellness Visit: N/A FOLLOW UP: Return to clinic in 4 weeks 03/17/2022 Arron Vang [facility] Clinical Pharmacist - Physician Medication Therapy Management Clinic 02/17/2022, 3:07 PM documented in this encounter Plan of Treatment Upcoming Encounters Date Type Specialty Care Team Description 02/25/2022 Nutrition Services Nutrition Services Dinah Mohamud, ALFIE [address] [facility] [place] [address] 02/27/2022 Office Visit Podiat[facility]roughs DPM [facility] [address] 03/06/2022 Home Visit Family Medicine Sara Recinos, Community Health Vp Talent Management [address] [facility] [place] [address] 03/17/2022 Office Visit [facility]acy [facility] Erica [address] [place] [address] 03/18/2022 Home Visit [facility] Rica Taylor, RN [address] [place] [address] 06/02/2022 Office Visit Cardiology Del Díaz Jr., DO [address] [place] [address] 06/04/2022 Office Visit Family Medicine James Maria, DO [address] [address] Scheduled Procedures Name Priority Associated Diagnoses Date/Ti [...] Documents on File Type Date Recorded Patient Perfume Maker Expl 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
--- OUTSIDE RECORDS SUMMARY | 2023-07-31 20:21 | External Medical Summary | Summary of Care ---
Author Name Unknown Organization [place] [address] Care Team Providers Care Cash Application Clerk Name Role Phone James Maria Primary Care Provider Reason for Visit * Reason Onset Date Comments [facility]: Maintenance 02/13/2022 Encounter Details Date Type Department Care Team Description 02/13/2022 Telephone [facility], [facility] [address] [facility] [place] [address] [facility], Nurse [facility] [address] [place] [address] [facility]: Maintenance Allergies Active Allergy Reactions Severity Noted Date Comments Lisinopril Edema face/lips/tongue High 04/05/2018 documented as of this encounter (statuses as of 02/13/2022) Medications Medication Sig Dispensed Refills Start Date [...] 5 Tab 6 08/24/2017 Active Glucose Blood (BandwidthTOUCH VERNetworked Insights) STRP Use up to 4 times a day E11.9 300 Strip 3 08/24/2017 Active Blood Glucose Monitoring Suppl (Cymbet) w/Device KITIndications:Type 2 diabetes mellitus with hemoglobin [...] 90 Capsule 0 12/25/2021 Active FreeStyle Rose Mraie 2 Sensor Test blood sugars four times daily 2 Each 11 12/27/2021 Active FreeStyle Rose Marie 2 [place] Device Test blood sugars four times daily 1 Each 0 12/27/2021 Active Lantus SoloStar 100 UNIT/ML Subcutaneous Solution Pen-injector (Insulin Glargine)Indications :Type 2 diabetes mellitus with hemoglobin A1c goal of less than 8.0% (HCC) Inject under the skin 15 Units before bedtime. 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 Do I need to do this form? * Telephone Encounter - Aida Valerio RN - 02/13/2022 12:34 PM EDT Call received from Gabriela at [facility]. States that they received from for the CGM on 01/28/22 butit was not completely filled out. Scan noted in pt files tab. Requesting to have provider answer all questions on the form and send back to them via fax. documented in this encounter Plan of Treatment Upcoming Encounters Date Type Specialty Care Team Description 02/17/2022 Office Visit Pharmacy [facility] [address] [address] 02/25/2022 Nutrition Services Nutrition Services Dinah Mohamud RDN [address] [address] 02/27/2022 Office Visit Podiatry Kylie Burroughs, DPMarga [address] [place] [address] 03/06/2022 Home Visit Family Medicine Sara Recinos, Community Health Management Recruiter [address] [place] [address] 03/18/2022 Home Visit [facility] Rica Taylro, RN [address] [address] 06/02/2022 Office Visit Cardiology Arjun Nielsen, Del Gann DO [address] [address] 06/04/2022 Office Visit Family Medicine James Maria DO [address] [address] Scheduled Procedures Name Priority Associated Diagnoses Date/Ti [...] Documents on File Type Date Recorded Patient Frog Catcher Expl anation Advanced Directive service a hi [...] Directive Advanced Directive Advanced Directive Care Teams Cash Application Clerk Relationship Specialty Start Date End Date James Maria, [address] [facility] [place] [address] PCP - General Family Medicine 06/07/18 documented as of this encounter
--- OUTSIDE RECORDS SUMMARY | 2023-07-31 20:21 | External Medical Summary | Summary of Care ---
Author Name Unknown Organization [place] [address] Care Team Providers Care Transition Of Care Specialist Name Role Phone James Maria Primary Care Provider Reason for Visit * Reason Comments [facility]: Maintenance Encounter Details Date Type Department Care Team Description 02/11/2022 Home Visit [facility], [facility] [address] [facility] [place] [address] Rica Taylor, RN 132 [facility] [place] [address] Allergies Active Allergy Reactions Severity Noted Date Comments Lisinopril Edema face/lips/tongue High 04/05/2018 documented as of this encounter (statuses as of 02/11/2022) Medications Medication Sig Dispensed Refills Start Date End Date Status Blood Glucose Monitoring Suppl (GLAMSQUADTOUCH ULTRA SYSTEM) W/DEVICE KIT Use as directed [...] 5 Tab 6 08/24/2017 Active Glucose Blood (GLAMSQUADTOUCH VERGallery AlSharq) STRP Use up to 4 times a day E11.9 300 Strip 3 08/24/2017 Active Blood Glucose Monitoring Suppl (TRA) w/Device KITIndications:Type 2 diabetes mellitus with hemoglobin [...] 11 12/27/2021 Active FreeStyle Rose Marie 2 [place] Device Test blood sugars four times daily 1 Each 0 12/27/2021 Active Lantus SoloStar 100 UNIT/ML Subcutaneous Solution Pen-injector (Insulin Glargine)Indications :Type 2 diabetes mellitus with hemoglobin A1c goal of less than 8.0% ([facility]) Inject under the skin 15 Units before bedtime. 15 mL 3 01/06/2022 Active Pen [place] 32G X 4 MMIndications:Type 2 diabetes mellitus with hemoglobin A1c goal of less than 8.0% ([facility]) Use as directed . Use to inject insulin up to 4 times daily. 400 Each 3 01/06/2022 Active NovoLOG FlexPen 100 UNIT/ML Subcutaneous Solution Pen-injector (insulin aspart) Inject under the skin 5 Units three times a day with meals . 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 type 2 diabetes mellitus, with fat layer exposed 01/09/2022 Atherosclerosis of [place] coronary arter y without angina pectoris 01/09/2022 [...] as of this encounter (statuses as of 02/11/2022) Resolved Problems Problem Noted Date Resolved Date [...] as of this encounter (statuses as of 02/11/2022) Immunizations Name Administration Dates Next Due COVID-19 [...] Sign Reading Time Taken Comments Blood Pressure 104/60 02/11/2022 3:49 PM EDT Pulse 76 02/11/2022 3:49 PM EDT Temperature 37.2 C (99 F) 02/11/2022 3:49 PM EDT Respiratory Rate 18 02/11/2022 3:49 PM EDT Oxygen Saturation 91% 02/11/2022 3:49 PM EDT Inhaled Oxygen Concentration - - Weight - - Height - - Body Mass Index - - documented in this encounter Progress Notes * Rica Taylor RN - 02/11/2022 10:58 AM EDT Images from the original note were not included. [facility] Thrasher Feeder Visit Date: 02/11/2022 Time: 2:58 PM Name: Selvin Sebastian : 1945 Current Concerns: Pt seen for return RNCM visit Bloods sugars have been ranging 69-248 - most are in the mid 100's Pt has only been checking 2x a day Has not received Idea Devicee in mail yet Meds reviewed with pt and found that he is still taking Novolin 70/30 Instructed him to stop and start taking Lantus 15 units at bedtime and novolog 5 units 3x a day with meals He verbalizes understanding Wounds on RLE Pt will change dressing to LE wounds Wound care is to cleanse with soap and water, apply thin layer vaseline and DSD every 3 days and prn Instructions written for pt. Physical Exam: BP 104/60 | Pulse 76 | Temp 37.2 C (99 F) | Resp 18 | SpO2 91% Pain 0 Physical Exam HENT: Nose: Nose normal. Cardiovascular: Rate and [...] Systems Constitutional: Negative. HENT: Negative. Eyes: Negative. Cardiovascular: Positive for leg swelling. Gastrointestinal: Negative. Endocrine: Negative. Genitourinary: Negative. Musculoskeletal: Positive for arthralgias. Skin: Positive for wound. Neurological: Negative. Psychiatric/Behavioral: Negative. Medication Reconciliation: (See medication list) Does patient take medications as ordered: Yes Patient Well Being: PHQ2/9: No questionnaires available. No change in living situation Continues to stay with sister Denies falls [facility]-10 Completed this Visit: No. Routine visit and No falls since last visit Advanced Care Planning: No documentation, ACP updated last visit. Patient's Goals of Care: 1. Improved bsg control 2. Obtain freestyle rose marie 3. Wound healing Reinforcement/Education: DIABETES: -Blood sugar testing [...] a day 5 servings fruit/vegetable per day Reinforced safety education and fall prevention. and Reinforced medication regimen. Timing., Dosing. and Purspose. Treatment/Plan: Continue meds as prescribed Compression stockings to BLE daily Elevate LE as much as possible Fall precautions - use cane or walker Keep all appts and attend MTM for DM management Continue to check bsg 3-4x a day CCD diet Home Interventions Provided: Home Intervention: Wound Care and Other; Evaluation Reinforced current Plan of Care, including self-management and medication regimen Patient's 'Red Flags': 1. S/s of infection - redness, fever, fould drainage 2. bsg highs and lows 3. Redness of LE r/t cellullitis Patient Needs to Remember: Call [facility] at with any new or worsening health concerns or problems, red flag symptoms. Referrals Needed: Other none Follow Up: Is there cellular connectivity/connectivity [...] visits & schedule home visit with care pressure steamer tender(s)as indicated. Provider is in agreement with Plan of Care: Yes Scheduled to follow up with patient in 2 weeks with ARABELLA and 2 weeks after with RNCM - pt to call when Freestyle comes so [facility] can help apply.. Rica Taylor RN 02/11/2022 2:58 PM documented in this encounter Plan of Treatment Upcoming Encounters Date Type Specialty Care Team Description 02/17/2022 Office Visit Pharmacy [facility] [address] [address] 02/25/2022 Nutrition Services Nutrition Services Dinah Mohamud RDN [address] [address] 02/27/2022 Office Visit Podiatry Kylie Burroughs, DPMarga [address] [place] [address] 03/06/2022 Home Visit Family Medicine Sara Recinos, Community Health Nanoelectronics Engineer [address] [place] [address] 03/18/2022 Home Visit [facility] Rica Taylor RN [address] [address] 06/02/2022 Office Visit Cardiology Arjun Nielsen, Del Gann DO [address] [address] 06/04/2022 Office Visit Family Medicine James Maria, DO [address] [address] Scheduled Procedures Name Priority Associated Diagnoses Date/Ti [...] Documents on File Type Date Recorded Patient Collections Specialist Expl 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 Directive Advanced Directive Advanced Directive Care Teams Transition Of Care Specialist Relationship Specialty Start Date End Date James Maria DO [address] [facility] [place] [address] PCP - General Family Medicine 06/07/18 documented as of this encounter
--- OUTSIDE RECORDS SUMMARY | 2023-07-31 20:21 | External Medical Summary | Summary of Care ---
Author Name Unknown Organization [place] [address] Care Team Providers Care Maintenance Engineer Oil Field Name Role Phone Crow James Sophy Primary Care Provider Reason for Visit * Reason Comments Medication Management Encounter Details Date Type Department Care Team Description 02/21/2022 Pharmacy [facility] [place], [facility] [address] [facility] [place] [address] Pharmacist, [facility] [address] [facility] [place] [address] Type 2 diabetes mellitus (HCC)* Allergies Active Allergy Reactions Severity Noted Date Comments Lisinopril Edema face/lips/tongue High 04/05/2018 documented as of this encounter (statuses as of 02/21/2022) Medications Medication Sig Dispensed Refills Start Date End Date Status Blood Glucose Monitoring Suppl (DEM SolutionsTOUCH ULTRA SYSTEM) W/DEVICE KIT Use as directed 4 times a day as needed for Hyperglycemia (high sugar) or Hypoglycemia (low sugar). Use up to four times a day as directed 1 Kit 0 01/29/2016 Active DEM SolutionsTOUCH ULTRA BLUE STRP USE TO CHECK GLUCOSE 4 TIMES DAILY 100 Strip 0 11/13/2016 Active ONETOUCH DELICA LANCETS 33G MISC USE ONE TO CHECK GLUCOSE 4 TIMES DAILY 100 Each 0 11/13/2016 Active Sildenafil Citrate (VIAGRA) 50 MG TabletIndications:Im potence of organic origin Take 1 Tab by mouth as needed for Erectile Dysfunction. 5 Tab 6 08/24/2017 Active Glucose Blood (DEM SolutionsTOUCH VERIO) STRP Use up to 4 times a day E11.9 300 Strip 3 08/24/2017 Active Blood Glucose Monitoring Suppl (DEM SolutionsTOPersonal Genome Diagnostics (PGD)) w/Device KITIndications:Type 2 diabetes mellitus with hemoglobin [...] 11 12/27/2021 Active FreeStyle Rose Marie 2 [place] Device Test blood sugars four times daily 1 Each 0 12/27/2021 Active Lantus SoloStar 100 UNIT/ML Subcutaneous Solution Pen-injector (Insulin Glargine)Indications :Type 2 diabetes mellitus with hemoglobin A1c goal of less than 8.0% (HCC) Inject under the skin 15 Units before bedtime. 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, with fat layer exposed 01/09/2022 Atherosclerosis of [place] coronary arter y without angina pectoris [...] as of this encounter (statuses as of 02/21/2022) Resolved Problems Problem Noted Date Resolved Date [...] as of this encounter (statuses as of 02/21/2022) Immunizations Name Administration Dates Next Due COVID-19 [...] Services Dinah Mohamud RDN [address] [address] 02/27/2022 Office Visit Podiatry Kylie Burroughs, REMEDIOS [address] [place], [place] [address] [address] 03/06/2022 Home Visit Family Medicine Sara Recinos, Community Health Compressed Gases Tester [address] [place] [address] 03/17/2022 Office Visit Pharmacy [facility] Erica [address] [address] 03/18/2022 Home Visit [facility] Rica Taylor, RN [address] [address] 06/02/2022 Office Visit Cardiology Del Díaz Jr., DO [address] [address] 06/04/2022 Office Visit Family Medicine James Maria DO [address] [address] Scheduled Procedures Name Priority Associated Diagnoses Date/Ti [...] Documents on File Type Date Recorded 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
--- OUTSIDE RECORDS SUMMARY | 2023-07-31 20:21 | External Medical Summary | Summary of Care ---
Author Name Unknown Organization [place] [address] Care Team Providers Care Salvage Grinder Name Role Phone James Maria Primary Care Provider Reason for Visit * Reason Onset Date Comments [facility]: Maintenance 02/13/2022 Encounter Details Date Type Department Care Team Description 02/13/2022 Telephone [facility], [facility] [address] [employer] [place] [address] [facility], Nurse [facility] [address] [address] [facility]: Maintenance Allergies Active Allergy [...] 5 Tab 6 08/24/2017 Active Glucose Blood (Chill.comTOUCH VERePetWorld) STRP Use up to 4 times a day E11.9 300 Strip 3 08/24/2017 Active Blood Glucose Monitoring Suppl (ApplyInc.com) w/Device KITIndications:Type 2 diabetes mellitus with hemoglobin [...] 11 12/27/2021 Active FreeStyle Rose Marie 2 [place] Device Test blood sugars four times daily 1 Each 0 12/27/2021 Active Lantus SoloStar 100 UNIT/ML Subcutaneous Solution Pen-injector (Insulin Glargine)Indications :Type 2 diabetes mellitus with hemoglobin A1c goal of less than 8.0% (HCC) Inject under the skin 15 Units before bedtime. 15 mL 3 01/06/2022 Active Pen [place] 32G X 4 MMIndications:Type 2 diabetes [...] encounter Miscellaneous Notes * Telephone Encounter - Aida Valerio RN - 02/13/2022 12:34 PM EDT Call received from Gabriela at [facility]. States that they received from for the CGM on 01/28/22 butit was not completely filled out. Scan noted in pt files tab. Requesting to have provider answer all questions on the form and send back to them via fax. documented in this encounter Plan of Treatment Upcoming Encounters Date Type Specialty Care Team Description 02/17/2022 Office Visit Pharmacy [facility]a [address] [address] 02/25/2022 Nutrition Services Nutrition Services Dinah Mohamud, ALFIE [address] [address] 02/27/2022 Office Visit Podiatry Kylie Burroughs, DPM[address] [place] [address] 03/06/2022 Home Visit Family Medicine Sara Recinos, Community Health Configuration Technician [address] [place] [address] 03/18/2022 Home Visit [facility] Rica Taylor RN [address] [address] 06/02/2022 Office Visit Cardiology Del Díaz Jr., DO [address] [address] 06/04/2022 Office Visit Family Medicine James Maria, [address] [address] Scheduled Procedures Name Priority Associated Diagnoses Date/Ti [...] Documents on File Type Date Recorded Patient Examiner Rating Clerk Expl 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 Directive Advanced Directive Advanced Directive Care Teams Salvage Grinder Relationship Specialty Start Date End Date James Maria DO [address] [address] PCP - General Family Medicine 06/07/18 documented as of this encounter
--- OUTSIDE RECORDS SUMMARY | 2023-07-31 20:21 | External Medical Summary | Summary of Care ---
Author Name Unknown Organization [place] [address] Care Team Providers Care Scientific Publications Editor Name Role Phone Lamberto Razo MD Primary Care Provider [place] Reason for Visit * Reason Comments DSMT Follow-Up Encounter Details Date Type Department Care Team Description 05/11/2018 Nutrition Services Nutrition, [facility] [address] [facility] [place] [address] Dinah Mohamud, ALFIE 132 [facility] [place] [address] Type 2 diabetes mellitus with hemoglobin A1c goal of less than 7.0% ([facility])*; OBESITY, BMI 30-34 (SEE ACTUAL BMI); Dyslipidemia, goal LDL below 100; HTN, goal below 140/90 Allergies Active Allergy Reactions Severity Noted Date Comments Lisinopril Edema face/lips/tongue High 04/05/2018 documented as of this encounter (statuses as of 02/22/2022) Medications Medication Sig Dispensed Refills Start Date End Date Status Blood Glucose Monitoring Suppl ([employer] ULTRA SYSTEM) W/DEVICE KIT Use as directed [...] 7 Active Sildenafil Citrate (VIAGRA) 50 MG TabletIndicatio ns:Impotence of organic origin Take 1 Tab by mouth as needed for Erectile Dysfunction. 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 1080 g 1 7 06/07/20 18 Discontinued(Co urse of treatment completed) insulin isophane human (NOVOLIN N RELION) 100 UNIT/ML injection Inject 5 Units under the skin 2 times a day. 1 Vial 5 7 10/13/20 19 Discontinued insulin glargine (LANTUS SOLOSTAR) 100 UNIT/ML SOPNIndications :Type 2 diabetes mellitus with hemoglobin A1c goal of less than 7.0% (HCC) 35 units at bedtime. 15 Pre-filled Pen Syringe Dosing Unit 3 8 01/26/20 19 Discontinued(Re fill) insulin glargine (LANTUS) 100 UNIT/ML injectionIndica tions:Type 2 diabetes mellitus with hemoglobin A1c goal of less than 7.0% (HCC) Inject 35 Units under the skin at bedtime. 35 units 15 Vial 3 8 12/13/19 19 Discontinued(Du plicate) NOVOLOG FLEXPEN 100 UNIT/ML SOPNIndications :Type 2 diabetes mellitus with hemoglobin A1c goal of less than 7.0% (HCC) Inject 5 Units under the skin three times a day with meals. 5 units with Breakfast, lunch, and dinner 5 Pre-filled Pen Syringe Dosing Unit 3 8 01/26/20 19 Discontinued(Re fill) RELION INSULIN SYRINGE 30G X 5/16" 0.3 ML MISCIndications :Type 2 diabetes mellitus with hemoglobin A1c goal of less than 7.0% (HCC) For insulin dosing 4 times daily 1 Box Dosing Unit 3 8 10/14/20 19 Discontinued aspirin enteric coated 81 MG TBECIndications :Type 2 diabetes mellitus with diabetic neuropathy, unspecified (HCC) Take 1 Tab by mouth daily. 100 Tab 3 8 02/20/20 21 Discontinued(Re fill) MetFORMIN (GLUCOPHAGE) 1000 MG TabletIndicatio ns:Type 2 diabetes mellitus with hemoglobin A1c goal of less than 7.0% (HCC) TAKE ONE TABLET BY MOUTH TWICE DAILY WITH MORNING AND EVENING MEALS 180 Tab 3 8 01/26/20 19 Discontinued(Re fill) tamsulosin (FLOMAX) 0.4 MG Capsule Take 1 Cap by mouth daily. 90 Cap 3 8 01/26/20 19 Discontinued(Re fill) amLODIPine (NORVASC) 5 MG Tablet Take 1 Tab by mouth daily. 90 Tab 3 8 01/26/20 19 Discontinued(Re fill) atorvaSTATin (LIPITOR) 40 MG Tablet Take 1 Tab by mouth daily. 90 Tab 3 8 01/26/20 19 Discontinued(Re fill) documented as of this encounter (statuses as of 02/22/2022) Active Problems Problem Noted Date MARYSOL inhibitor intolerance 04/05/2018 HTN, goal below [...] as of this encounter (statuses as of 02/22/2022) Resolved Problems Problem Noted Date Resolved Date Neurogenic ulcer of foot 05/19/2017 017 HTN, [...] as of this encounter (statuses as of 02/22/2022) Immunizations Name Administration Dates Next Due Pneumococcal Conjugate Vacc, 13 Valent (Prevnar) 12/24/2015 Pneumococcal Polysaccharide PPV23 (Pneumovax) 07/23/2011 Seasonal Influenza, Quadriva lent, No Preserve, 6 Mons & Above, IM 09/10/2017 Seasonal Influenza, Quadriva lent, No Preserve, IM 09/16/2016,11/22/2015 Seasonal Influenza, Split, I IV3, With Preserve, Inj 08/15/2014,2013,08/03/2012,07/23,09/10/2010,12/25/2009,08/06/2009 ,11/01/2008 TD - Tetanus/Diptheria (ADULT) 11/09/2003 TDAP (age 11 and older)(Adacel) 10/21/2011 Varicella Zoster Vaccine (Adult) 08/03/2012 documented as of this encounter Social History [...] - Inhaled Oxygen Concentration - - Weight 92 kg (202 lb 12.8 oz) 05/11/2018 4:13 PM EDT Height 167.6 cm (5' 6") 05/11/2018 4:13 PM EDT Body Mass Index 32.73 05/11/2018 4:13 PM EDT documented in this encounter Patient Instructions * Patient Instructions* Dinah Mohamud RDN - 05/11/2018 4:48 PM EDT Patient will check glucose levels at least 2 times daily-once in AM and 2 hours after evening meal. Patient will decrease consumption of sugar, sweetened beverages daily. documented in this encounter Progress Notes * Dinah Mohamud RDN - 05/11/2018 4:25 PM EDT DIABETES SELF MANAGEMENT TRAINING/MEDICAL NUTRITION THERAPY Name: Selvin Sebastian Date: 05/11/2018 Last order of DIABETES MANAGEMENT EDUCATION (ADA) REFERRAL was found on 08/18/2017 from Telephone on 08/18/[address]? No, Pended order for referral sent. Participant scheduled for 1:1 training due to lack of classes scheduled within 2 months of appointment. Selvin Sebastian, identified by name and date of , is a 72 year old male being seen for diabetes education DSMT/MNT assessment: Participant's diabetes concerns and/or barriers to care they would like to address at today's visit: None Lately have you been feeling down, depressed or hopeless most of the day? no Diabetes medication: Metformin 1000 mg 1 tablet in AM and PM with meals Lantus 35 units at bedtime Novolog 5 units with meals-breakfast, lunch, and supper Glucose review: HEMOGLOBIN A1C Stephie Dt/Tm Resulted Value Status HEMOGLOBIN, A1C (%) 01/11/18 11:20A 01/11/18 8.2* F EST AVG GLUCOSE (MG/DL) 01/11/18 11:20A 01/11/18 189* F HEMOGLOBIN A1C Stephie Dt/Tm Resulted Value Status HEMOGLOBIN, A1C (%) 09/10/17 11:28A 09/10/17 9.4* F EST AVG GLUCOSE (MG/DL) 09/10/17 11:28A 09/10/17 223* F HEMOGLOBIN A1C Stephie Dt/Tm Resulted Value Status HEMOGLOBIN, A1C (%) 05/13/17 11:12A 05/13/17 7.3* F EST AVG GLUCOSE (MG/DL) 05/13/17 11:12A 05/13/17 163* F Reviewed most current A1c level with participant and discussed recommended range with him. Self-Monitoring Blood Glucose Participant does not monitor blood glucoses recently. States his glucometer is broken. He had been told to check glucose levels 4 times/day prior to that. Glucose levels when he was checking them- 198-216. Hypoglycemia?: No Diet review: Breakfast: orange juice, black coffee Lunch: ham & cheese sandwich, sweetened tea, water or burger and fries Supper / Dinner: meat and potatoes, peas Snacks: crackers Beverages: regular, soda Alcohol: 2 beers/day in evening-3 times week Weight management review: Wt Readings from Last 3 Encounters: 05/11/18 92 kg (202 lb 12.8 oz) 04/05/18 93.6 kg (206 lb 6 oz) 01/11/18 97.1 kg (214 lb) Weight changes since last visit: 5.1 kg in past 4 months-5.2% Physical Activity: outside yard work DSMT/Diabetes MNT diagnosis: Chronic complication knowledge deficit related to unfamiliar with long-term diabetic-related complications as evidenced by pt encounter. Limited adherence to diabetes management recommendations related to regular consumption of sugar-sweetened beverages as evidenced by diet recall. DSMT/ Diabetes MNT intervention: Nutrition: Discussed importance of consistent meals to help regulate blood sugar levels. Selvin continues to skip or consume very little for breakfast-sometimes only juice and black coffee. Discussed importance of monitoring portion sizes of CHO-containing foods and eating more consistent meals. He continues to consume mostly meat and high CHO foods-bread, potatoes. Monitoring: Discussed importance of checking blood sugar levels regularly-Blood Glucose Log provided to him. States he has been getting his test strips delivered free since change in his insurance. Reports glucometer is broken. Participant taught how to use glucometer at previous visits. Pended order for Rx for glucometer compatible for strips sent to his attending-Dr James Maria per spouse. Chronic Complications: Discussed chronic complications of diabetes-heart disease, kidney failure, slow-healing wounds. Also encouraged participant to have labs checked again early next year-last doneMarch 2018. Suggested he also obtain flu shot when available. Participant Selected Behavioral Objective: Nutrition: To improve blood glucose control I will decrease consumption of sugar-sweetened beverages. Monitoring: To identify blood glucose trends, I will check my blood sugar level in AM and 2 hours after evening meal. Recommendations: Therapy Management Plan: 1.)Diabetes: Medication no change 2.) Hypertension: BP Readings from Last 3 Encounters: 04/05/18 130/80 03/26/18 110/62 01/11/18 126/76 Being monitored by PCP. Blood pressure medications being adjusted per 3.) Dyslipidemia: LDL (DIRECT MEASURE)(mg/dL) Stephie Dt/Tm Resulted Value Status 01/11/18 11:20A 01/11/18 53 FINAL Not addressed, no recent cardiac labs 4.) Kidney function review: E GLOM FILT RATE Date Value Ref Range Status 01/11/2018 >60.0 >60 Final Comment: If patient is , multiply estimated GFR by 1.159. MICROALBUMIN RATIO Date Value Ref Range Status 01/11/2018 <11 <30 mg/g creat Final Comment: Normal: <30 mg/g creatinine High: 30-300 mg/g creatinine Very High: >300 mg/g creatinine Nephrotic: >2200 mg/g creatinine At goal/target 5.) Diabetes Bundle / Standards of Care: Needs annual foot exam, blood pressure, flu vaccine and lipid panel Plan for return: Next Office Visit: No Future Appointments Time in: 4:00 PM Time out: 4:35 PM Reminder - Communication must be sent to providers external to Marian Mohamud RDN, NUTRITION SERVICES [facility] [employer] documented in this encounter Plan of Treatment Upcoming Encounters Date Type Specialty Care Team Description 02/25/2022 Nutrition Services Nutrition Dinah Peres RDN [address] [place] [address] 02/27/2022 Office Visit Podiatry Kylie Burroughs, REMEDIOS [address] [place] [address] 03/06/2022 Home Visit Family Medicine Sara Recinos, [facility] Executive Director [address] [place] [address] 03/17/2022 [facility] [address] [place] [address] 03/18/2022 [facility] Visit [facility] Rica Taylor, RN [address] [place] [address] 06/02/2022 Office Visit Cardiology Del Díaz Jr., DO [address] [place] [address] 06/04/2022 Office Visit Family Medicine James Maria DO [address] [place] [address] Scheduled Procedures Name Priority Associated Diagnoses Date/Ti [...] hemoglobin A1c goal of less than 7.0% (HCC)- Primary OBESITY, BMI 30-34 (SEE ACTUAL BMI) Obesity, unspecified Dyslipidemia, goal LDL below 100 Other and unspecified hyperlipidemia HTN, goal below 140/90 Unspecified essential hypertension documented in this encounter Advance Directives Documents on File Type Date Recorded Patient Toeing Stockings Expl anation Advanced Directive service a hi [...] Directive Advanced Directive Advanced Directive Care Teams Scientific Publications Editor Relationship Specialty Start Date End Date Lamberto Razo MD PCP - General 01/10/1998 06/06/18 documented as of this encounter
--- OUTSIDE RECORDS SUMMARY | 2023-07-31 20:22 | External Medical Summary | Summary of Care ---
Author Name Unknown Organization [place] [address] Care Team Providers Care Histopathologist Name Role Phone James Maria Primary Care Provider Encounter Details Date Type Department Care Team Description 01/29/2022 Patient Reported Data Patient Survey Ortho OBERD Allergies Active Allergy Reactions Severity Noted Date Comments Lisinopril Edema face/lips/tongue High 04/05/2018 documented as of this encounter (statuses as of 01/29/2022) Medications Medication Sig Dispensed Refills Start Date End Date Status Blood Glucose Monitoring Suppl (streamOnceTOUCH ULTRA SYSTEM) W/DEVICE KIT Use as directed [...] Each 12/27/2021 Active FreeStyle Rose Marie 2 [place] Device Test blood sugars four times daily 1 Each 0 12/27/2021 Active Lantus SoloStar 100 UNIT/ML Subcutaneous Solution Pen-injector (Insulin Glargine)Indications :Type 2 diabetes mellitus with hemoglobin A1c goal of less than 8.0% (HCC) Inject under the skin 15 Units before bedtime. 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 foot associated with type 2 diabetes mellitus, with fat layer exposed 01/09/2022 Atherosclerosis of [place] coronary arter y without angina pectoris 01/09/2022 [...] as of this encounter (statuses as of 01/29/2022) Resolved Problems Problem Noted Date Resolved Date [...] as of this encounter (statuses as of 01/29/2022) Immunizations Name Administration Dates Next Due COVID-19 [...] Specialty Care Team Description 02/11/2022 Home Visit [facility] Rica Taylor, RN [address] [address] 02/17/2022 Office Visit [facility] Erica [address] [place] [address] 02/25/2022 Nutrition Services Nutrition Services Dinah Mohamud, FELIPEN [address] [place] [address] 02/26/2022 [facility] Burroughs[facility] [id number] 03/06/2022 Home Visit Family Medicine Sara Recinos, [facility] [employer] R[employer] [address] [place], [place] [id number] 03/12/2022 Office Visit Family Medicine James Maria DO [address] [place] [address] 06/02/2022 Office Visit Cardiology Del Díaz Jr., DO [address] [place] [address] 06/04/2022 Office Visit Family Medicine James Maria DO [address] [place] [address] Scheduled Procedures Name Priority Associated Diagnoses Date/Ti [...] Documents on File Type Date Recorded 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
--- OUTSIDE RECORDS SUMMARY | 2023-07-31 20:22 | External Medical Summary | Summary of Care ---
Author Name Unknown Organization [place] [address] Care Team Providers Care Dog Raiser Name Role Phone James Maria Primary Care Provider Reason for Visit * Reason Comments [facility]: Maintenance Encounter Details Date Type Department Care Team Description 01/22/2022 Home Visit Care Coordination [address] [place] [address] Sara Recinos, [facility] Collector [address] [place] [address] Allergies Active Allergy Reactions Severity Noted Date Comments Lisinopril Edema face/lips/tongue High 04/05/2018 documented as of this encounter (statuses as of 01/22/2022) Medications Medication Sig Dispensed Refills Start Date [...] 5 Tab 6 08/24/2017 Active Glucose Blood ([employer])) STRP Use up to 4 times a day E11.9 300 Strip 3 08/24/2017 Active Blood Glucose Monitoring Suppl ([employer]GN [employer])) w/Device KITIndications:Type 2 diabetes mellitus with hemoglobin A1c goal of 7.0%-8.0% ([facility]) Use as directed. Recommend [...] A1c goal of less than 8.0% ([facility]) Use up to 4 [...] 11 12/27/2021 Active FreeStyle Rose Marie 2 [place] Device Test blood sugars four times daily 1 Each 0 12/27/2021 Active Lantus SoloStar 100 UNIT/ML Subcutaneous Solution Pen-injector (Insulin Glargine)Indications :Type 2 diabetes mellitus with hemoglobin A1c goal of less than 8.0% (HCC) Inject under the skin 15 Units before bedtime. 15 mL 3 01/06/2022 Active Pen [place] 32G X 4 MMIndications:Type 2 diabetes mellitus [...] as of this encounter (statuses as of 01/22/2022) Active Problems Problem Noted Date Diabetic ulcer of toe of rig ht foot associated with type 2 diabetes mellitus, with fat layer exposed 01/09/2022 Atherosclerosis of [place] coronary arter y without angina pectoris 01/09/2022 [...] as of this encounter (statuses as of 01/22/2022) Resolved Problems Problem Noted Date Resolved Date [...] as of this encounter (statuses as of 01/22/2022) Immunizations Name Administration Dates Next Due COVID-19 [...] Sign Reading Time Taken Comments Blood Pressure 115/59 01/22/2022 10:04 AM EDT Pulse 69 01/22/2022 10:04 AM EDT Temperature 36.9 C (98.4 F) 01/22/2022 10:04 AM E DT Respiratory Rate - - Oxygen Saturation 92% 01/22/2022 10:04 AM EDT Inhaled Oxygen Concentration - - Weight - - Height - - Body Mass Index - - documented in this encounter Progress Notes * Sara Recinos, [facility] Collector - 01/22/2022 9:41 AM EDT Images from the original note were not included. [facility] Collector Visit Date: 01/22/2022 Time: 9:41 AM Name: Selvin Sebastian : 1945 Referral Source: mass spectrometry manager Source of Information: Patient Spoken language: luxembourger Patient can read in Bermudian: Yes. Buffer Machine needed: No. COVID-19 screening completed: Yes Vitals: Vital signs completed: Yes, vital signs within normal range. BP 115/59 | Pulse 69 | Temp 36.9 C (98.4 F) | SpO2 92% Condition Changes:no Changes in health or social status since [...] Score is 4 or more? Yes, notified Provider/Intensivist Last flowsheet values for [facility]: Age 65+: 1 (01/22/2022 9:00 AM) Diagnosis (3 or more co-existing): 1 (01/22/2022 9:00 AM) Prior history of falls within 3 months: 1 (01/22/2022 9:00 AM) Incontinence: 0 (01/22/2022 9:00 AM) Visual impairment: 1 (01/22/2022 9:00 AM) Impaired functional mobility: 0 (01/22/2022 9:00 AM) Environmental hazards: 0 (01/22/2022 9:00 AM) Poly Pharmacy (4 or more prescriptions - any type): 1 (01/22/2022 9:00 AM) Pain affecting level of function: 0 (01/22/2022 9:00 AM) Cognitive impairment: 1 (01/22/2022 9:00 AM) Score - a score of 4 or more is considered at risk for fallin (01/22/2022 9:00 AM) Heart Failure Checklist A "good day" for the patient looks like every day-he has a heart murmur. Today is different than a "good day": No Patient describes sleep as good Normal The [...] air conditioner or other coolingdevice will help? No Do stairs in the home have railings? N/A Is there a medical alert or phone [...] o Patient lives alone: No, with sister o Bathroom is located 1 o Bedroom is located 1 o Patient has to go up and down steps: No. Patient receives help from family/friends/neighbors/community agencies etc.: Yes. Type of help the patient receives: transportation with due to his hearing loss she needs to listen to physicians. Patient perceives the help they receive as adequate: o Yes. DME: o DME used: Cane and Shower chair o Patient has concerns [...] for the patient to follow up with [facility] if any new problems or concerns. Patient did not complete his living will yet. He is wearing compression socks. Would area he states looks better. It was wrapped and he said it was not time to change it yet. Toe area looks good. Dark spot on elbow that he states when he bumps it sometimes it bleeds. BS log. He stated he forgot to eat on 01-21 and that is why his BS was low. He was outside. Follow Up: Patient encouraged to call the intake phone number for all urgent but not emergent issues. Patient has question for nurse~ If he forgets to check his BS before he eats - how long does it take to get into our system? Should he check his BS as soon as he remembers and will it be accurate? He has a spot on the top of his right hand that is crusty and when he bumps it sometimes it will bleed. He wants to know what it is? Scheduled to follow up with patient with ARABELLA on 03-06-22. Sara Recinos [facility] 01/22/2022 9:41 AM documented in this encounter Plan of Treatment Upcoming Encounters Date Type Specialty Care Team Description 02/11/2022 [facility] Visit [facility] Rica Taylor, RN [address] [address] [address] 02/17/2022 Office Visit Pharmacy [facility] [address] [address] 02/25/2022 Nutrition Services Nutrition Services Dinah Mohamud RDN [address] [address] 02/26/2022 Office Visit Podiatry Kylie Burroughs DPM [address] [place] [address] 03/06/2022 Home Visit Family Medicine Sara Recinos, [facility] [address] [place] [address] 03/12/2022 Office Visit Family Medicine James Maria, DO [address] [address] 06/02/2022 Office Visit Cardiology Del Díaz Jr., DO [address] [place] [address] 06/04/2022 Office Visit Family Medicine James Maria, DO [address] [address] Scheduled Procedures Name Priority Associated Diagnoses Date/Ti [...] Documents on File Type Date Recorded 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
--- OUTSIDE RECORDS SUMMARY | 2023-07-31 20:22 | External Medical Summary | Summary of Care ---
Author Name Unknown Organization [place] [address] Care Team Providers Care Program Professional Name Role Phone Crow James Sophy Primary Care Provider Reason for Visit * Reason Comments Medication Management Encounter Details Date Type Department Care Team Description 01/31/2022 Pharmacy [facility], [facility] [address] [facility] [place] [address] Pharmacist, [facility] [address] [facility] [place] [address] Type 2 diabetes mellitus (HCC)* Allergies Active Allergy Reactions Severity Noted Date Comments Lisinopril Edema face/lips/tongue High 04/05/2018 documented as of this encounter (statuses as of 01/31/2022) Medications Medication Sig Dispensed Refills Start Date End Date Status Blood Glucose Monitoring Suppl (JamKazamTOUCH ULTRA SYSTEM) W/DEVICE KIT Use as directed 4 times a day as needed for Hyperglycemia (high sugar) or Hypoglycemia (low sugar). Use up to four times a day as directed 1 Kit 0 01/29/2016 Active JamKazamTOUCH ULTRA BLUE STRP USE TO CHECK GLUCOSE 4 TIMES DAILY 100 Strip 0 11/13/2016 Active ONETOUCH DELICA LANCETS 33G MISC USE ONE TO CHECK GLUCOSE 4 TIMES DAILY 100 Each 0 11/13/2016 Active Sildenafil Citrate (VIAGRA) 50 MG TabletIndications:Im potence of organic origin Take 1 Tab by mouth as needed for Erectile Dysfunction. 5 Tab 6 08/24/2017 Active Glucose Blood (JamKazamTOUCH VERIO) STRP Use up to 4 times a day E11.9 300 Strip 3 08/24/2017 Active Blood Glucose Monitoring Suppl (JamKazamTOEntone Technologies) w/Device KITIndications:Type 2 diabetes mellitus with [...] 11 12/27/2021 Active FreeStyle Rose Marie 2 [place] Device Test blood sugars four times daily 1 Each 0 12/27/2021 Active Lantus SoloStar 100 UNIT/ML Subcutaneous Solution Pen-injector (Insulin Glargine)Indications :Type 2 diabetes mellitus with hemoglobin A1c goal of less than 8.0% (HCC) Inject under the skin 15 Units before bedtime. 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 Called [facility], call transferred 3 times. Per Darlyn they did receive our documentation however, form was not filled out correctly and would need to fill out new form. Original order was submitted 12/27 and given the with wait time for patient's device, attempted to reach out to tomorrow [facility] to request to be changed to a different supplier. Spoke to tomorrow [facility] on same, they will switch to a different supplier. Will follow up next week on same. documented in this encounter Plan of Treatment Upcoming Encounters Date Type Specialty Care Team Description 02/03/2022 [facility] Pharmacist [place] [address] [facility] [place] [address] 02/11/2022 Home Visit [facility] Rica Taylor, RN [address] [facility] [place] [address] 02/17/2022 Office Visit Pharmacy [facility] Erica [address] [facility] [place] [address] 02/25/2022 Nutrition Services Nutrition Services Dinah Mohamud RDN [address] [facility] [place] [address] 02/26/2022 Office Visit Podiatry Kylie Burroughs, DPMarga [address] [facility] [place] [address] 03/06/2022 Home Visit Family Medicine Sara Recinos, Community [facility] Concrete Block Plant Supervisor [address] [place] [address] 03/12/2022 Office Visit Family Medicine James Maria DO [address] [place] [address] 06/02/2022 Office Visit Cardiology Del Díaz Jr., DO [address] [place] [address] 06/04/2022 Office Visit Family Medicine James Maria, DO [address] [place] [address] Scheduled Procedures Name Priority Associated Diagnoses Date/Ti [...] Documents on File Type Date Recorded Patient Openstack Developer Expl anation Advanced Directive service a hi [...] Directive Advanced Directive Advanced Directive Care Teams Program Professional Relationship Specialty Start Date End Date James Maria, [address] [place] [address] PCP - General Family Medicine 06/07/18 documented as of this encounter
--- OUTSIDE RECORDS SUMMARY | 2023-07-31 20:22 | External Medical Summary | Summary of Care ---
Author Name Unknown Organization [place] [address] Care Team Providers Care Junior Linux Systems Administrator Name Role Phone James Maria Primary Care Provider Reason for Visit * Reason Onset Date Comments [facility]: Maintenance 01/13/2022 Encounter Details Date Type Department Care Team Description 01/13/2022 Telephone [facility], [facility] [address] [facility] [place] [address] [facility], Nurse [facility] [address] [facility] [place] [address] [facility]: Maintenance Allergies Active Allergy Reactions Severity Noted Date Comments Lisinopril Edema face/lips/tongue High 04/05/2018 documented as of this encounter (statuses as of 01/13/2022) Medications Medication Sig Dispensed Refills Start Date [...] 5 Tab 6 08/24/2017 Active Glucose Blood (NOSTROMO ICTTOUCH VERLogoworks) STRP Use up to 4 times a day E11.9 300 Strip 3 08/24/2017 Active Blood Glucose Monitoring Suppl (Sportlobster) w/Device KITIndications:Type 2 diabetes mellitus with hemoglobin [...] 11 12/27/2021 Active FreeStyle Rose Marie 2 [place] Device Test blood sugars four times daily 1 Each 0 12/27/2021 Active Lantus SoloStar 100 UNIT/ML Subcutaneous Solution Pen-injector (Insulin Glargine)Indications :Type 2 diabetes mellitus with hemoglobin A1c goal of less than 8.0% (HCC) Inject under the skin 15 Units before bedtime. 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 States that they send an order for a Free Style Rose Marie to [facility] right fax [phone]. Will refax order today Will send message to Admin team to monitor faxes for order and expedite. documented in this encounter Plan of Treatment Upcoming Encounters Date Type Specialty Care Team Description 01/22/2022 Home Visit Family Medicine Sara Recinos, Community [facility] Check Totaler [address] [place] [address] 02/11/2022 Home Visit [facility] Rica Taylor RN [address] [place] [address] 02/17/2022 Office Visit Pharmacy [facility] Erica [address] [place] [address] 02/26/2022 Office Visit Podiatry Kylie Burroughs, [facility] [address] [place] [address] 03/12/2022 Office Visit Family James Rooney, DO [address] [place] [address] 06/02/2022 Office Visit Cardiology Del Díaz Jr., DO [address] [place] [address] 06/04/2022 Office Visit Family James Rooney, DO [address] [place] [address] Scheduled Procedures Name Priority Associated Diagnoses Date/Ti [...] Documents on File Type Date Recorded Patient Taxation Agent Expl 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 Directive Advanced Directive Advanced Directive Care Teams Junior Linux Systems Administrator Relationship Specialty Start Date End Date James Maria DO [address] [place] [address] PCP - General Family Medicine 06/07/18 documented as of this encounter
--- OUTSIDE RECORDS SUMMARY | 2023-07-31 20:22 | External Medical Summary | Summary of Care ---
Author Name Unknown Organization [place] [address] Care Team Providers Care Furnace Process Supervisor Name Role Phone James Maria Primary Care Provider Encounter Details Date Type Department Care Team Description 01/29/2022 Patient Reported Data Patient Survey Ortho OBERD Allergies Active Allergy Reactions Severity Noted Date Comments Lisinopril Edema face/lips/tongue High 04/05/2018 documented as of this encounter (statuses as of 01/29/2022) Medications Medication Sig Dispensed Refills Start Date End Date Status Blood Glucose Monitoring Suppl (FlamsredTOUCH ULTRA SYSTEM) W/DEVICE KIT Use as directed [...] Each 12/27/2021 Active FreeStyle Rose Marie 2 [place] Device Test blood sugars four times daily 1 Each 0 12/27/2021 Active Lantus SoloStar 100 UNIT/ML Subcutaneous Solution Pen-injector (Insulin Glargine)Indications :Type 2 diabetes mellitus with hemoglobin A1c goal of less than 8.0% (HCC) Inject under the skin 15 Units before bedtime. 15 mL 3 01/06/2022 Active Pen [place] 32G X 4 MMIndications:Type 2 diabetes mellitus [...] [facility] Rica Taylor, RN [address] [place] [address] 02/17/2022 Office Visit [facility] Erica [address] [place] [address] 02/25/2022 Nutrition Services Nutrition Services Dinah Mohamud, FELIPEN [address] [place] [address] 02/26/2022 Office Visit [facility]iat[facility] Kylie Burroughs[facility]PM [address] [facility] [phone] 03/06/2022 Home Visit Family Medicine Sara Recinos, Community [facility] Rubber Cutting Machine Tender [address] [place], [place] [phone] 03/12/2022 Office Visit Family Medicine James Maria DO [address] [place] [address] 06/02/2022 Office Visit Cardiology Del Díaz Jr., DO [address] [place] [address] 06/04/2022 Office Visit Family Medicine James Maria DO [address] [place] [address] Scheduled Procedures Name Priority Associated Diagnoses Date/Ti [...] Documents on File Type Date Recorded Patient Communication Coordinator Expl 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 Directive Advanced Directive Advanced Directive Care Teams Furnace Process Supervisor Relationship Specialty Start Date End Date James Maria DO [address] [place] [address] PCP - General Family Medicine 06/07/18 documented as of this encounter
--- OUTSIDE RECORDS SUMMARY | 2023-07-31 20:22 | External Medical Summary | Summary of Care ---
Author Name Unknown Organization [place] [address] Care Team Providers Care Fbi Profiler Name Role Phone James Maria Primary Care Provider Reason for Visit * Reason Onset Date Comments Medication Problem 01/13/2022 Encounter Details Date Type Department Care Team Description 01/13/2022 Telephone Pharmacy, [facility] [address] [facility] [address] [facility] [address] [place] [address] Medication Problem Allergies Active Allergy Reactions Severity Noted Date Comments Lisinopril Edema face/lips/tongue High 04/05/2018 documented as of this encounter (statuses as of 01/13/2022) Medications Medication Sig Dispensed Refills Start Date End Date Status Blood Glucose Monitoring Suppl (Good Works NowTOUCH ULTRA SYSTEM) W/DEVICE KIT Use as directed 4 times a day as needed for Hyperglycemia (high sugar) or Hypoglycemia (low sugar). Use up to four times a day as directed 1 Kit 0 01/29/2016 Active Good Works NowTOUCH ULTRA BLUE STRP USE TO CHECK GLUCOSE 4 TIMES DAILY 100 Strip 0 11/13/2016 Active ONETOUCH DELICA LANCETS 33G MISC USE ONE TO CHECK GLUCOSE 4 TIMES DAILY 100 Each 0 11/13/2016 Active Sildenafil Citrate (VIAGRA) 50 MG TabletIndications:Im potence of organic origin Take 1 Tab by mouth as needed for Erectile Dysfunction. 5 Tab 6 08/24/2017 Active Glucose Blood (Good Works NowTOUCH VERtagWALLET) STRP Use up to 4 times a day E11.9 300 Strip 3 08/24/2017 Active Blood Glucose Monitoring Suppl (Draftster) w/Device KITIndications:Type 2 diabetes mellitus with hemoglobin A1c goal of 7.0%-8.0% ([facility]) Use as directed. Recommend check [...] 11 12/27/2021 Active FreeStyle Rose Marie 2 [place] Device Test blood sugars four times daily 1 Each 0 12/27/2021 Active Lantus SoloStar 100 UNIT/ML Subcutaneous Solution Pen-injector (Insulin Glargine)Indications :Type 2 diabetes mellitus with hemoglobin A1c goal of less than 8.0% (HCC) Inject under the skin 15 Units before bedtime. 15 mL 3 01/06/2022 Active Pen [place] 32G X 4 MMIndications:Type 2 diabetes mellitus [...] with fat layer exposed 01/09/2022 Atherosclerosis of [place] coronary arter y without angina pectoris 01/09/2022 [...] Miscellaneous Notes * Telephone Encounter - Arron Vang, [facility] - 01/13/2022 11:51 AM EDT Patient still waiting on lantus prescription from mail order. Patient's to call to inquire about prescription. Arron Vang [facility] Clinical Pharmacist 01/13/2022, 11:52 AM * Telephone Encounter - MICHEL Rodriguez - 01/13/2022 11:04 AM EDT Pt called stating he only got one of the insulin pens (isn't sure which one it is), requestingto speak to [facility]. documented in this encounter Plan of Treatment Upcoming Encounters Date Type Specialty Care Team Description 01/22/2022 Home Visit Family Medicine Sara Recinos, Community [facility] Automotive Sales Specialist [address] [place] [address] 02/11/2022 Home Visit [facility] Rica Taylor RN [address] [place] [address] 02/17/2022 Office Visit Pharmacy [facility] Erica [address] [place] [address] 02/26/2022 Office Visit Podiatry Kylie Burroughs DPM [address] [facility] [place] [address] 03/12/2022 Office Visit Family Medicine James Maria DO [address] [place] [address] 06/02/2022 Office Visit Cardiology Del Díaz Jr., DO [address] [place] [address] 06/04/2022 Office Visit Family Medicine James Maria, DO [address] [place] [address] Scheduled Procedures Name Priority Associated Diagnoses Date/Ti [...] Documents on File Type Date Recorded Patient Dock Supervisor Expl 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 Directive Advanced Directive Advanced Directive Care Teams Fbi Profiler Relationship Specialty Start Date End Date James Maria, [address] [facility] [place] [address] PCP - General Family Medicine 06/07/18 documented as of this encounter
--- OUTSIDE RECORDS SUMMARY | 2023-07-31 20:22 | External Medical Summary | Summary of Care ---
Author Name Unknown Organization [place] [address] Care Team Providers Care Triple Drum Operator Name Role Phone Crow James Sophy Primary Care Provider Reason for Visit * Reason Comments Medication Management Encounter Details Date Type Department Care Team Description 02/03/2022 Pharmacy [facility], [facility] [address] [facility] [place] [address] Pharmacist, [facility] [address] [facility] [place] [address] Type 2 diabetes mellitus (HCC)* Allergies Active Allergy Reactions Severity Noted Date Comments Lisinopril Edema face/lips/tongue High 04/05/2018 documented as of this encounter (statuses as of 02/03/2022) Medications Medication Sig Dispensed Refills Start Date End Date Status Blood Glucose Monitoring Suppl (Monitor My MedsTOUCH ULTRA SYSTEM) W/DEVICE KIT Use as directed 4 times a day as needed for Hyperglycemia (high sugar) or Hypoglycemia (low sugar). Use up to four times a day as directed 1 Kit 0 01/29/2016 Active Monitor My MedsTOUCH ULTRA BLUE STRP USE TO CHECK GLUCOSE 4 TIMES DAILY 100 Strip 0 11/13/2016 Active ONETOUCH DELICA LANCETS 33G MISC USE ONE TO CHECK GLUCOSE 4 TIMES DAILY 100 Each 0 11/13/2016 Active Sildenafil Citrate (VIAGRA) 50 MG TabletIndications:Im potence of organic origin Take 1 Tab by mouth as needed for Erectile Dysfunction. 5 Tab 6 08/24/2017 Active Glucose Blood (Monitor My MedsTOUCH VERIO) STRP Use up to 4 times a day E11.9 300 Strip 3 08/24/2017 Active Blood Glucose Monitoring Suppl (Monitor My MedsTODefinigen) w/Device KITIndications:Type 2 diabetes mellitus with hemoglobin [...] 11 12/27/2021 Active FreeStyle Rose Marie 2 [place] Device Test blood sugars four times daily 1 Each 0 12/27/2021 Active Lantus SoloStar 100 UNIT/ML Subcutaneous Solution Pen-injector (Insulin Glargine)Indications :Type 2 diabetes mellitus with hemoglobin A1c goal of less than 8.0% (HCC) Inject under the skin 15 Units before bedtime. 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 Scheduled.4 documented in this encounter Plan of Treatment Upcoming Encounters Date Type Specialty Care Team Description 02/11/2022 Home Visit [facility] Rica Taylor, RN [address] [place] [address] 02/17/2022 Office Visit Pharmacy [facility] [address] [place] [address] 02/25/2022 Nutrition Services Nutrition Services Dinah Mohamud RDN [address] [place] [address] 02/26/2022 Office Visit Podiatry Kylie Burroughs, DPM [address] [place] [address] 03/06/2022 Home Visit Family Medicine Sara Recinos, Community [facility] Derrick Boat Operator [address] [place] [address] 03/12/2022 Office Visit Family Medicine James Maria, [address] [place] [address] 06/02/2022 Office Visit Cardiology Del Díaz Jr., [address] [place] [address] 06/04/2022 Office Visit Family Medicine James Maria, [address] [place] [address] Scheduled Procedures Name Priority Associated Diagnoses Date/Ti [...] Documents on File Type Date Recorded Patient Senior Research Executive Expl anation Advanced Directive service a hi [...] Directive Advanced Directive Advanced Directive Care Teams Triple Drum Operator Relationship Specialty Start Date End Date James Maria, [address] [facility] [place] [id number] PCP - General Family Medicine 06/07/18 documented as of this encounter
--- OUTSIDE RECORDS SUMMARY | 2023-07-31 20:22 | External Medical Summary | Summary of Care ---
Author Name Unknown Organization [place] [address] Care Team Providers Care Paper Box Maker Name Role Phone James Maria DO Primary Care Provider Reason for Visit * Reason Comments Follow Up Encounter Details Date Type Department Care Team Description 12/26/2021 Office Visit Cardiology, [facility] [address] [place] [address] Del Díaz Jr., DO [address] [place] [address] Paroxysmal atrial fibrillation (HCC)* Allergies Active Allergy Reactions Severity Noted Date Comments Lisinopril Edema face/lips/tongue High 04/05/2018 documented as of this encounter (statuses as of 01/28/2022) Medications Medication Sig Dispensed Refills Start Date End Date Status Blood Glucose Monitoring Suppl (ONETOUCH ULTRA SYSTEM) W/DEVICE KIT Use as directed 4 times a day as needed for Hyperglycemia (high sugar) or Hypoglycemia (low sugar). Use up to four times a day as directed 1 Kit 0 01/29/20 16 Active ONETOUCH ULTRA BLUE STRP USE TO [...] Tab 6 08/24/20 17 Active Glucose Blood (XitronixTOUCH VERProject Travel) STRP Use up to 4 times a day E11.9 300 Strip 3 08/24/20 17 Active Blood Glucose Monitoring Suppl (Tenantrex) w/Device KITIndications:Typ e 2 diabetes mellitus with [...] E11.9 3 Each 1 09/05/20 21 Active Atorvastatin Calcium 40 MG Oral Tablet (Lipitor)Indicatio ns:Dyslipidemia Take by mouth 1 Tablet in the morning. 90 Tablet 1 12/25/19 22 Active Eliquis 5 MG Oral TabletIndications: Chronic atrial fibrillation (HCC) Take by mouth 1 Tablet in the morning AND 1 Tablet before bedtime. 180 Tablet 3 12/25/19 22 Active Furosemide 40 MG Oral Tablet (Lasix)Indications :Chronic atrial fibrillation (HCC) Take by mouth 1 Tablet in the morning. 90 Tablet 3 12/25/19 22 Active metFORMIN HCl ER 500 MG Oral Tablet Extended Release 24 Hour (Glucophage XR)Indications:Typ e 2 diabetes mellitus with diabetic neuropathy, with long-term current use of insulin (HCC) Take by mouth 2 Tablets in the morning. 180 Tablet 3 12/25/19 22 Active Metoprolol Tartrate 25 MG Oral Tablet (Lopressor)Indicat ions:Chronic atrial fibrillation (HCC) Take by mouth 1 Tablet in the morning AND 1 Tablet before bedtime. 180 Tablet 3 12/25/19 22 Active Tamsulosin HCl 0.4 MG Oral Capsule (Flomax)Indication s:BPH with obstruction/lower urinary tract symptoms Take by mouth 1 Capsule in the morning. 90 Capsule 0 12/25/19 22 Active ReliOn Pen [place] 32G X 4 MM (Insulin Pen Needle)Indications :Type 2 diabetes mellitus with polyneuropathy (HCC) Use as directed with flexpen 100 Each 6 09/05/20 21 022 Discontinued Aspirin EC 81 MG Oral Tablet Delayed ReleaseIndications :Type 2 diabetes mellitus with diabetic neuropathy, with long-term current use of insulin (HCC) Take 1 Tab by mouth daily. 100 Tab 1 09/05/20 21 022 Discontinued(In dication List Clean Up) Insulin NPH Isophane & Regular (70-30) 100 UNIT/ML Subcutaneous Suspension (NovoLIN 70/30)Indications: Type 2 diabetes mellitus with diabetic neuropathy, with long-term current use of insulin (HCC) Inject under the skin 2 times a day. 20 units before breakfast and 15 units before supper. 30 mL 5 12/25/19 22 022 Discontinued documented as of this encounter (statuses as of 01/28/2022) Active Problems Problem Noted Date Diabetic ulcer [...] as of this encounter (statuses as of 01/28/2022) Resolved Problems Problem Noted Date Resolved Date [...] as of this encounter (statuses as of 01/28/2022) Immunizations Name Administration Dates Next Due COVID-19 [...] Smoker Quit: 11/02 Smokeless Tobacco: Never Used Tobacco Cessation:Counseling Given: Yes Alcohol Use Standard Drinks/Week Comments Yes 0 [...] Reading Time Taken Comments Blood Pressure 118/62 12/26/2021 3:26 PM EST Pulse 60 12/26/2021 3:26 PM EST Temperature - - Respiratory Rate 18 12/26/2021 3:26 PM EST Oxygen Saturation - - Inhaled Oxygen Concentration - - Weight 82.8 kg (182 lb 8 oz) 12/26/2021 3:26 PM EST Height - - Body Mass Index 29.46 12/05/2021 8:52 AM EST documented in this encounter Progress Notes * Del Díaz Jr., DO - 01/28/2022 3:17 PM EDT CLINIC NOTES Cardiology, [address] [place] [address] Selvin Sebastian : 1945 Dear James, It was my pleasure to see Mr. Sebastian in re-evaluation today December 26, 2021. As you know, he is a very pleasant yet hard of hearing 76-year-old gentleman who has been following us here in the cardiology clinic for paroxysmal atrial fibrillation. Since his last evaluation with me he his stateshe has been doing well. He denies any cardiac complaints of chest pain, shortness of breath, palpitations, lightheadedness, dizziness or syncope. He has been taking his medications as directed without issue. He was hospitalized at [facility] recently for an infection. PAST MEDICAL HISTORY: 1. Paroxysmal atrial fibrillation with a chads Vasc score of 4 2. Moderate aortic stenosis 3. Very hard of hearing 4. Diabetes 5. Hypertension Review of Systems: Pertinent positives as per HPI, comprehensive all system review otherwise negative. Allergies as of 12/26/2021 - Reviewed 12/26/2021 Allergen Reaction Noted Lisinopril Edema face/lips/tongue 04/05/2018 Current Outpatient Medications Medication Sig Dispense Refill Blood Glucose Monitoring Suppl (TrackyUCH ULTRA SYSTEM) W/DEVICE KIT Use as directed 4 times a day as needed for Hyperglycemia (high sugar) or Hypoglycemia (low sugar). Use up to four times a day as directed 1 Kit 0 TrackyUCH ULTRA BLUE STRP USE TO CHECK GLUCOSE 4 TIMES DAILY 100 Strip 0 ONETOUCH DELICA LANCETS 33G [facility] USE ONE TO CHECK GLUCOSE 4 TIMES DAILY 100 Each 0 Sildenafil Citrate (VIAGRA) 50 MG Tablet Take 1 Tab by mouth as needed for Erectile Dysfunction. 5 Tab 6 Glucose Blood (TrackyUCH VERProject Travel) STRP Use up to 4 times a day E11.9 300 Strip 3 Blood Glucose Monitoring Suppl (Tenantrex) w/Device KIT Use as directed. Recommend check glucose levels at least 2 times daily-once in AM before breakfast and once 2 hours after evening meal. 1 Kit 0 Silver sulfADIAZINE 1 % External Cream (Silvadene) Apply topically to affected area daily. Apply to to the left foot ulcer once daily. Cover with dry dressing. Perform once daily. 50 g 1 Fluorouracil 5 % External Cream (Efudex) Apply [...] 1 Tablet before bedtime. 180 Tablet 3 Tamsulosin HCl 0.4 MG Oral Capsule (Flomax) Take by mouth 1 Capsule in the morning. 90 Capsule 0 FreeStyle Rose Marie 2 Sensor Test blood sugars four times daily 2 Each 11 FreeStyle Rose Marie 2 [place] Device Test blood sugars four times daily 1 Each 0 Lantus SoloStar 100 UNIT/ML Subcutaneous Solution Pen-injector (Insulin Glargine) Inject under the skin 15 Units before bedtime. 15 mL 3 Pen [place] 32G X 4 MM Use as directed . Use to inject insulin up to 4 times daily. 400 Each 3 NovoLOG FlexPen 100 UNIT/ML Subcutaneous Solution Pen-injector (insulin aspart) Inject under the skin 5 Units three times a day with meals . 15 mL 3 No current facility-administered medications for this visit. PHYSICAL EXAM: Vital Signs: BP 118/62 (BP Site: Left Arm, BP Position: Sitting, BP Cuff Size: Large) | Pulse 60 | Resp 18 | Wt 82.8 kg (182 lb 8 oz) | BMI 29.46 kg/m | BSA 1.96 m General: Awake, alert and oriented x 3. No acute distress. HEENT: Normocephalic, atraumatic. Pupils equal, round and reactive to light and accommodation. Extraocular muscles are intact. Anicteric sclera. Moist mucous membranes. Neck: No JVD. No bruit. Cardiovascular: Regular. Positive S-4. Normal S-1 and S-2. No S-3. 3/6 mid to late systolic ejection murmur, greatest at the right sternal border, second intercostal space with radiation to the bilateral carotids. No rubs. Pulmonary: Clear to auscultation bilaterally. No rales, rhonchi, or wheezing. Abdomen: Bowel sounds x 4, soft. No rebound, guarding or tenderness. No organomegaly. Extremities: No clubbing, cyanosis or edema. +2 pedal pulses bilaterally. Skin: Warm and dry. IMPRESSION: 1. Paroxysmal atrial fibrillation with a chads Vasc score of 4 2. Moderate aortic stenosis 3. Very hard of hearing 4. Diabetes 5. Hypertension RECOMMENDATIONS: It was my pleasure to see Mr. Sebastian in re-evaluation today. From a cardiac standpoint doing very well and no further cardiac testing or intervention is necessary at this time. He is on a very good medical regimen and no changes will be made today. I have encouraged to remain active and will see himback here in 6 months in follow-up. The patient left the office in good spirits after verbalizing that all of their questions were answered to satisfaction. Prior to their next visit, they were invited to call me with any questions or concerns. Thank you very much for allowing me to participate in the care of your patient. Del Díaz Jr, DO, [facility] Cardiovascular Medicine [facility] at [facility] This chart was completed in part utilizing [employer] Speech Voice Recognition Software. Grammatical errors, random [...] documented in this encounter Nursing Notes * Juan M Goodman LPN - 12/26/2021 3:23 PM EST Examination Room: 16 Name: Selvin Sebastian Date of : (1945). Reason for Visit: f/u Interim Hospitalization(s): [facility] 12/01/2021-12/03/2021 infection Problems/Concerns: [facility], at appt today. SOBOE. Chest Pain/SOB: see above [facility] you can [...] Home Rica Taylor RN [address] [address] 02/17/2022 Office Visit Pharmacy [facility] Erica [address] [place] [address] 02/25/2022 Nutrition Services Nutrition Services Dinah Mohamud RDN [address] [place] [address] 02/26/2022 Office Visit Podiatry Kylie Burroughs DPM [address] [place] [address] [place] [id number] 03/06/2022 Home Visit Family Medicine Sara Recinos, Community Health Jig Mill Operator [address] [place] [address] 03/12/2022 Office Visit Family Medicine Jaems Maria, DO [address] [place] [address] 06/02/2022 Office Visit Cardiology Del Díaz Jr., DO [address] [place] [address] 06/04/2022 Office Visit Family Medicine James Maria, DO [address] [place] [address] Scheduled Procedures Name Priority Associated Diagnoses Date/Ti [...] Paroxysmal atrial fibrillation (HCC)- Primary Atrial fibrillation documented in this encounter Advance Directives Documents on File Type Date Recorded 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
--- OUTSIDE RECORDS SUMMARY | 2023-07-31 20:22 | External Medical Summary | Summary of Care ---
Author Name Unknown Organization [place] [address] Care Team Providers Care Electronic Service Technician Name Role Phone James Maria DO Primary Care Provider Reason for Visit * Reason Onset Date Comments [facility]: Maintenance 01/16/2022 Encounter Details Date Type Department Care Team Description 01/16/2022 Telephone [facility], [facility] 132 [facility] [place] [address] Wendy Cisneros CRNP [address] [place] [address] [facility]: Maintenance Allergies Active Allergy Reactions Severity Noted Date Comments Lisinopril Edema face/lips/tongue High 04/05/2018 documented as of this encounter (statuses as of 01/16/2022) Medications Medication Sig Dispensed Refills Start Date [...] 5 Tab 6 08/24/2017 Active Glucose Blood (TimbreTOUCH VERIO) STRP Use up to 4 times a day E11.9 300 Strip 3 08/24/2017 Active Blood Glucose Monitoring Suppl (TimbreTOGood Start Genetics VERIO) w/Device KITIndications:Type 2 diabetes mellitus with [...] 11 12/27/2021 Active FreeStyle Rose Marie 2 [place] Device Test blood sugars four times daily 1 Each 0 12/27/2021 Active Lantus SoloStar 100 UNIT/ML Subcutaneous Solution Pen-injector (Insulin Glargine)Indications :Type 2 diabetes mellitus with hemoglobin A1c goal of less than 8.0% (HCC) Inject under the skin 15 Units before bedtime. 15 mL 3 01/06/2022 Active Pen [place] 32G X 4 MMIndications:Type 2 diabetes mellitus [...] as of this encounter (statuses as of 01/16/2022) Active Problems Problem Noted Date Diabetic ulcer [...] as of this encounter (statuses as of 01/16/2022) Resolved Problems Problem Noted Date Resolved Date [...] as of this encounter (statuses as of 01/16/2022) Immunizations Name Administration Dates Next Due COVID-19 [...] Telephone Encounter - Ceferino Davis RPh - 01/16/2022 12:58 PM EDT Noted - will investigate Ceferino Davis RPh * Telephone Encounter - BARTOLO Bentley - 01/16/2022 9:12 AM EDT I received a fax from [facility] [employer] for CGM orders. Sharing with [facility] for clarification. I do not knowwhat type or supplies he needs. Please assist. documented in this encounter Plan of Treatment Upcoming Encounters Date Type Specialty Care Team Description 01/22/2022 Home Visit Family Medicine Sara Recinos, Community Health Surgery Aide [address] [place] [address] 02/11/2022 [facility] Visit [facility] Rica Taylor RN [address] [place] [address] 02/17/2022 Office Visit Pharmacy [facility] Erica [address] [place] [address] 02/26/2022 Office Visit Podiatry Kylie Burroughs DPM [address] [place] [address] [place] [address] 03/12/2022 Office Visit Family Medicine James Maria DO [address] [place] [address] 06/02/2022 Office Visit Cardiology Del Díaz Jr., DO [address] [place] [address] 06/04/2022 Office Visit Family Medicine James Maria, DO [address] [place] [address] Scheduled Procedures Name Priority Associated Diagnoses Date/Ti [...] Documents on File Type Date Recorded 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
--- OUTSIDE RECORDS SUMMARY | 2023-07-31 20:22 | External Medical Summary | Summary of Care ---
Author Name Unknown Organization [place] [address] Care Team Providers Care Stave Inspector Name Role Phone James Maria Primary Care Provider Reason for Visit * Reason Onset Date Comments [facility]: Maintenance 01/28/2022 Encounter Details Date Type Department Care Team Description 01/28/2022 Telephone [facility], [facility] 132 [facility] [place] [address] [facility], Nurse [facility] [address] [place] [address] [facility]: Maintenance Allergies Active Allergy [...] 5 Tab 6 08/24/2017 Active Glucose Blood (MobibeamTOUCH VERFisker Automotive) STRP Use up to 4 times a day E11.9 300 Strip 3 08/24/2017 Active Blood Glucose Monitoring Suppl ([employer] Corporation) w/Device KITIndications:Type 2 diabetes mellitus with [...] 11 12/27/2021 Active FreeStyle Rose Marie 2 [place] Device Test blood sugars four times daily 1 Each 0 12/27/2021 Active Lantus SoloStar 100 UNIT/ML Subcutaneous Solution Pen-injector (Insulin Glargine)Indications :Type 2 diabetes mellitus with hemoglobin A1c goal of less than 8.0% (HCC) Inject under the skin 15 Units before bedtime. 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 She is calling because she had faxed over a form that needed to be filled out and signed/dated. She is re-faxing form to be completed by BARTOLO Good. Fax completed form to [phone] Araseli Brown. RN [facility] RN [phone] documented in this encounter Plan of Treatment Upcoming Encounters Date Type Specialty Care Team Description 02/11/2022 Home Visit [facility] Rica Taylor RN [address] [place] [address] 02/17/2022 Office Visit Pharmacy [facility] Erica [address] [place] [address] 02/25/2022 Nutrition Services Nutrition Services Dinah Mohamud, ALFIE [address] [place] [address] 02/26/2022 Office Visit Podiatry Kylie Burroughs, [address] [facility] [place] [address] 03/06/2022 Home Visit Family Medicine Sara Recinos, Community Health Stack Attendant [address] [place] [address] 03/12/2022 Office Visit Family Medicine James Maria DO [address] [place] [address] 06/02/2022 Office Visit Cardiology Del Díaz Jr., DO [address] [place] [address] 06/04/2022 Office Visit Family Medicine James Maria, [address] [place] [address] Scheduled Procedures Name Priority Associated Diagnoses [...] Documents on File Type Date Recorded Patient Systems Support Engineer Expl 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 Directive Advanced Directive Advanced Directive Care Teams Stave Inspector Relationship Specialty Start Date End Date James Maria DO 132 [facility] [place] [id number] PCP - General Family Medicine 06/07/18 documented as of this encounter
--- OUTSIDE RECORDS SUMMARY | 2023-07-31 20:22 | External Medical Summary | Summary of Care ---
Author Name Unknown Organization [place] [address] Care Team Providers Care Plant Culture Manager Name Role Phone James Maria Primary Care Provider Reason for Visit * Reason Onset Date Comments [facility]: Maintenance 02/03/2022 Encounter Details Date Type Department Care Team Description 02/03/2022 Telephone [facility], [facility] [address] [facility] [place] [address] [facility], Nurse [facility] [address] [place] [address] [facility]: Maintenance Allergies Active Allergy [...] 5 Tab 6 08/24/2017 Active Glucose Blood (Beam ExpressTOUCH VERN-Trig) STRP Use up to 4 times a day E11.9 300 Strip 3 08/24/2017 Active Blood Glucose Monitoring Suppl (Worlds) w/Device KITIndications:Type 2 diabetes mellitus with hemoglobin [...] 11 12/27/2021 Active FreeStyle Rose Marie 2 [place] Device Test blood sugars four times daily 1 Each 0 12/27/2021 Active Lantus SoloStar 100 UNIT/ML Subcutaneous Solution Pen-injector (Insulin Glargine)Indications :Type 2 diabetes mellitus with hemoglobin A1c goal of less than 8.0% (HCC) Inject under the skin 15 Units before bedtime. 15 mL 3 01/06/2022 Active Pen [place] 32G X 4 MMIndications:Type 2 diabetes mellitus [...] Telephone Encounter - Araseli Brown RN - 02/03/2022 1:15 PM EDT Call received from Naresh from [facility] who is calling that they received a form that was signed by provide. They are re faxing the form to [phone] have it completed and signed. The original was signed by BARTOLO Garcia. Routing to Arik Brown. RN [facility] RN [phone] documented in this encounter Plan of Treatment Upcoming Encounters Date Type Specialty Care Team Description 02/11/2022 Home Visit [facility] [place] Rica Taylor RN [address] [place] [address] 02/17/2022 Office Visit Pharmacy [facility] [address] [address] 02/25/2022 Nutrition Services Nutrition Services Dinah Mohamud, ALFIE [address] [place] [address] 02/26/2022 Office Visit Podiatry Kylie Burroughs, [address] [place], [place] [id number] 03/06/2022 Home Visit Family Medicine Sara Recinos, Community Health Evaluation Analyst [address] [place] [address] 03/12/2022 Office Visit Family Medicine James Maria DO [address] [place] [address] 06/02/2022 Office Visit Cardiology Del Díaz Jr., DO [address] [place] [address] 06/04/2022 Office Visit Family Medicine James Maria, [address] [place] [address] Scheduled Procedures Name Priority Associated Diagnoses Date/Ti [...] Documents on File Type Date Recorded Patient Toe Stripper Expl anation Advanced Directive service a hi [...] Directive Advanced Directive Advanced Directive Care Teams Plant Culture Manager Relationship Specialty Start Date End Date James Maria DO 132 [facility] [place] [address] PCP - General Family Medicine 06/07/18 documented as of this encounter
--- OUTSIDE RECORDS SUMMARY | 2023-07-31 20:22 | External Medical Summary | Summary of Care ---
Author Name Unknown Organization [place] [address] Care Team Providers Care Financial Operations Analyst Name Role Phone James Maria Primary Care Provider Reason for Visit * Reason Onset Date Comments Information 01/21/2022 Encounter Details Date Type Department Care Team Description 01/21/2022 Telephone [facility], [facility] 132 [facility] [place] [address] Celina Handley, [place] [address] Information Allergies Active Allergy Reactions Severity Noted Date Comments Lisinopril Edema face/lips/tongue High 04/05/2018 documented as of this encounter (statuses as of 01/21/2022) Medications Medication Sig Dispensed Refills Start Date [...] 3 08/24/2017 Active Blood Glucose Monitoring Suppl (Jack On BlockTOUCH VERIO) w/Device KITIndications:Type 2 diabetes mellitus with [...] 12/27/2021 Active FreeStyle Rose Marie 2 [place] Device Test blood sugars four times daily 1 Each 0 12/27/2021 Active Lantus SoloStar 100 UNIT/ML Subcutaneous Solution Pen-injector (Insulin Glargine)Indications :Type 2 diabetes mellitus with hemoglobin A1c goal of less than 8.0% (HCC) Inject under the skin 15 Units before bedtime. 15 mL 3 01/06/2022 Active Pen [place] 32G X 4 MMIndications:Type 2 diabetes mellitus [...] as of this encounter (statuses as of 01/21/2022) Active Problems Problem Noted Date Diabetic ulcer of toe of rig ht foot associated with type 2 diabetes mellitus, with fat layer exposed 01/09/2022 Atherosclerosis of [place] coronary arter y without angina pectoris [...] as of this encounter (statuses as of 01/21/2022) Resolved Problems Problem Noted Date Resolved Date [...] as of this encounter (statuses as of 01/21/2022) Immunizations Name Administration Dates Next Due COVID-19 [...] Miscellaneous Notes * Telephone Encounter - Celina Handley RN - 01/21/2022 9:59 PM EDT This is a nurse triage encounter. If additional action is needed, do not route to nurse triage. Please route encounter to the applicable clinic pool. called to let KATHIE know that he will be at [address] [place] [address] for his apt tomorrow 01/22 documented in this encounter Plan of Treatment Upcoming Encounters Date Type Specialty Care Team Description 01/22/2022 Home Visit Family Medicine Sara Recinos, Community Health Marine Diver [address] [place] [address] 02/11/2022 Home Visit [facility] Rica Taylor RN [address] [address] [address] 02/17/2022 Office Visit Pharmacy [facility] Erica [address] [place] [address] 02/25/2022 Nutrition Services Nutrition Services Dinah Mohamud, ALFIE [address] [address] [address] 02/26/2022 Office Visit Podiatry Kylie Burroughs, [address] [address] 03/12/2022 Office Visit Family Medicine James Maria, DO [address] [place] [address] [address] 06/02/2022 Office Visit Cardiology Del Díaz Jr., DO [address] [place] [address] [address] 06/04/2022 Office Visit Family Medicine James Maria, [address] [address] Scheduled Procedures Name Priority Associated Diagnoses Date/Ti [...] Documents on File Type Date Recorded Patient Licensed Sales Producer Expl 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
--- OUTSIDE RECORDS SUMMARY | 2023-07-31 20:23 | External Medical Summary | Summary of Care ---
Author Name Unknown Organization [place] [address] Care Team Providers Care Iron Pourer Name Role Phone Yariel Mariavoolaf Beckett Primary Care Provider Reason for Visit * Reason Comments [facility]: Telehealth Encounter Details Date Type Department Care Team Description 12/25/2021 Telemedicine [facility], [facility] [address] [place] [address] Wendy Cisneros CRNP [address] [place] [address] Sara Recinos, Community Health Waiter [address] [place] [address] Dyslipidemia*; Type 2 diabetes mellitus with diabetic neuropathy, with long-term current use of insulin ([facility]); Chronic atrial fibrillation ([facility]); Type 2 diabetes mellitus with hemoglobin A1c goal of less than 8.0% ([facility]); BPH with obstruction/lower urinary tract symptoms; Hearing loss, unspecified hearing loss type, unspecified laterality Allergies Active Allergy Reactions Severity Noted Date Comments Lisinopril Edema face/lips/tongue High 04/05/2018 documented as of this encounter (statuses as of 12/25/2021) Medications Medication Sig Dispensed Refills Start Date End Date Status Blood Glucose Monitoring Suppl ([employer] ULTRA SYSTEM) W/DEVICE KIT Use as [...] 3 7 Active Blood Glucose Monitoring Suppl (ONETOUCH VERIO) [...] three weeks. 40 g 1 1 Active ReliOn Pen [place] 32G X 4 MM (Insulin Pen Needle)Indications: Type 2 diabetes mellitus with polyneuropathy (HCC) Use as directed with flexpen 100 Each 6 1 Active Insulin Syringe-Needle U-100 30G X 5/16" 0.3 MLIndications:Type 2 diabetes mellitus with polyneuropathy (HCC),Type 2 diabetes mellitus with hemoglobin A1c goal of less than 8.0% (HCC) Use up to 4 x a day for insulin dosing E11.9 3 Each 1 1 Active Aspirin EC 81 MG Oral Tablet Delayed ReleaseIndications: Type 2 diabetes mellitus with diabetic neuropathy, with long-term current use of insulin (HCC) Take 1 Tab by mouth daily. 100 Tab 1 1 Active Additional Information Patient not taking. Reported on 12/06/2021 Atorvastatin Calcium 40 MG Oral Tablet (Lipitor)Indication [...] the morning. 90 Tablet 3 2 Active Insulin NPH Isophane & Regular (70-30) 100 UNIT/ML Subcutaneous Suspension (NovoLIN 70/30)Indications:T ype 2 diabetes mellitus with diabetic neuropathy, with long-term current use of insulin (HCC) Inject under the skin 2 times a day. 20 units before breakfast and 15 units before supper. 30 mL 5 2 Active metFORMIN HCl ER 500 MG [...] before bedtime. 180 Tablet 3 2 Active Tamsulosin HCl 0.4 MG Oral Capsule (Flomax)Indications :BPH with obstruction/lower urinary tract symptoms Take by mouth 1 Capsule in the morning. 90 Capsule 0 2 Active Atorvastatin Calcium 40 MG Oral Tablet (Lipitor) Take 1 Tab by mouth daily. 90 Tab 1 1 12/25/19 22 Discontinu ed(Refill) Tamsulosin HCl 0.4 MG Oral Capsule (Flomax) Take 1 Cap by mouth daily. 90 Cap 0 1 12/25/19 22 Discontinu ed(Refill) Eliquis 5 MG Oral TabletIndications:C hronic atrial fibrillation (HCC) Take 1 Tablet by mouth 2 times a day. 180 Tablet 3 2 12/25/19 22 Discontinu ed(Refill) metFORMIN HCl ER 500 MG Oral Tablet Extended Release 24 Hour (Glucophage XR)Indications:Type 2 diabetes mellitus with hemoglobin A1c goal of less than 8.0% (HCC) Take by mouth 2 Tablets in the morning. 180 Tablet 3 2 12/25/19 22 Discontinu ed(Refill) Metoprolol Tartrate 25 MG Oral Tablet (Lopressor) Take by mouth 1 Tablet in the morning AND 1 Tablet before bedtime. 180 Tablet 3 2 12/25/19 22 Discontinu ed(Refill) Furosemide 40 MG Oral Tablet (Lasix)Indications: Chronic atrial fibrillation (HCC) Take by mouth 1 Tablet in the morning. 90 Tablet 3 2 12/25/19 22 Discontinu ed(Refill) Insulin NPH Isophane & Regular (70-30) 100 UNIT/ML Subcutaneous Suspension (NovoLIN 70/30)Indications:T ype 2 diabetes mellitus with hemoglobin A1c goal of less than 8.0% (HCC) Inject under the skin 2 times a day. 20 units before breakfast and 15 units before supper. 30 mL 5 2 12/25/19 22 Discontinu ed(Refill) documented as of this encounter (statuses as of 12/25/2021) Active Problems Problem Noted Date BPH with obstruction/lower urinary tract symptoms 03/13/2020 Multilevel degenerative disc disease 10/2020 Tympanic membrane perforation, right 01/2020 Mixed obsessional thoughts and acts 11/03 Type 2 diabetes mellitus with polyneurop athy [...] as of this encounter (statuses as of 12/25/2021) Resolved Problems Problem Noted Date Resolved Date Need for prophylactic vaccin ation and inoculation [...] as of this encounter (statuses as of 12/25/2021) Immunizations Name Administration Dates Next Due COVID-19 mRNA, LNP-s, No Pre serve, 2-Dose Series (Moderna) 02/22/2021 Pneumococcal Conjugate Vacc, 13 Valent (Prevnar) 12/24/2015 [...] Sign Reading Time Taken Comments Blood Pressure 126/62 12/25/2021 11:18 AM EST Pulse 74 12/25/2021 11:18 AM EST Temperature 36.7 C (98 F) 12/25/2021 11:18 AM EST Respiratory Rate - - Oxygen Saturation 94% 12/25/2021 11:18 AM EST Inhaled Oxygen Concentration - - Weight - - Height - - Body Mass Index - - documented in this encounter Progress Notes * Sara Recinos, [facility] Health Waiter - 12/25/2021 11:17 AM EST Images from the original note were not included. Community Health Waiter Visit Date: 12/25/2021 Time: 11:18 AM Name: Selvin Sebastian : 1945 Unable to finish tele-med due to connectivity problem. Referral Source: program development manager Source of Information: Patient Spoken language: irish Patient can read in Guatemalan: Yes. Outside Sales Representative Insurance needed: Yes. patient can't hear and we are using a white board COVID-19 screening completed: Yes Vitals: Vital signs completed: Yes, vital signs within normal range. BP 126/62 | Pulse 74 | Temp 36.7 C (98 F) | SpO2 94% Condition Changes: Changes [...] visit: Transition of Care Visit conducted with: Triage Nurse Symptoms Surveys and Evaluations: MAHC10 completed this visit: Yes. Score is 4 or more? Yes, notified Provider/Diesel Locomotive Engineer Last flowsheet values for MAHC10: Age 65+: 1 (12/25/2021 11:00 AM) Diagnosis (3 or more co-existing): 1 (12/25/2021 11:00 AM) Prior history of falls within 3 months: 0 (12/25/2021 11:00 AM) Incontinence: 0 (12/25/2021 11:00 AM) Visual impairment: 1 (12/25/2021 11:00 AM) Impaired functional mobility: 0 (12/25/2021 11:00 AM) Environmental hazards: 0 (12/25/2021 11:00 AM) Poly Pharmacy (4 or more prescriptions - any type): 1 (12/25/2021 11:00 AM) Pain affecting level of function: 1 (12/25/2021 11:00 AM) Cognitive impairment: 0 (12/25/2021 11:00 AM) Score - a score of 4 or more is considered at risk for fallin (12/25/2021 11:00 AM) Home Safety Does member identify any safety issues related to entering or exiting their home? d Does the patient need a wheelchair ramp [...] No Does bathroom have grab bars needed? No The patient reports needing help getting on [...] situation: o Patient lives alone: No, with spouse o Bathroom is located 1 o Bedroom is located 1 o Patient has to go up and down steps: Yes. Patient has concerns related to steps: No. Patient receives help from family/friends/neighbors/community agencies etc.: Yes. Type of help the patient receives: transportation Patient perceives the help they receive as adequate: o Yes. DME: o DME used: Cane, Shower chair and Stair glide o Patient has concerns related to DME: No. Financial: o Patient reports experiencing a financial hardship: No. Employment: o Patient is unemployed or without regular income: No. Utilities: o Patient reports difficulty paying heating, water, or electric bill: No. Transportation: o Patient drives: Yes. o Does anyone drive patient to appointments and shopping? No. o Patient receives community or public transportation assistance: Yes. Specify agency: van o Patient reports trouble getting a ride [...] Never. Plan: Plan for the patient to contact [facility] if any new problems or concerns. Pts BS today was 139. Follow Up: Patient encouraged to call the intake phone number for all urgent but not emergent issues. Scheduled to follow up with patient as requested per CM. All communication with the patient is done with a white board to write questions and then he can answer. In the future if there are questions it would be beneficial to have them printed out and he can read them and answer them. Unable to finish tele-med as connectivity problem with patient and provider. Patient asked to have all of his medications sent through to [facility] mail order and provider willdo that. His sister asked what address they are going to be sent to. Patient would like to have Rachel due to all the times he has to check his BS. BS today was 139. On his machine it was also [phone]. He does not have the day/time set up,but states he check his BS a lot. He wears his compression stockings, but does not take them off as he can't get them back on. He rolls them down and he does try to elevate his legs as often as he can. See pic of legs. Right leg. I did roll down his compression socks for this picture. Left leg. He states he has no fever or pain. He is currently staying at his sisters home in [place] His works at [employer] and has different hours and sometimes at night. Patient said his problems with falling seems to be at night so that is why he is staying at his sisters home. Provider will put in a request to have nurse go to the home tomorrow to look at the patients legs and answer any questions the family has. Sister asked to please call them first for the time that [email or web address] will be there. The patient has cardiology appt tomorrow afternoon. His is taking him. Sara Recinos [facility] Health Waiter 12/25/2021 11:18 AM * BARTOLO Bentley - 12/25/2021 11:12 AM EST [facility] Telehealth Visit Date: 12/25/2021 Plan/Discussion: Video portion of visit approx 5 min d/t ARABELLA equipment malfunction. Remaining visit completed via voice on visit now, no video. Refills sent to [facility] Mail order per pt request. Will have [facility] MTM look into getting Rose Marie. No concerns today. [facility] nurse to see pt 12/27. Unable to visualize the legs toreassess for cellulitis. No fevers. Nurse will reassess. Pt sees cardiology tomorrow. Denies any leg pain or redness. Will plan provider recheck via telemedicine 3 months. A total of 5 minutes was spent face to face via video-based telemedicine. Diagnosis and Associated Orders: ICD-10-CM 1. Dyslipidemia E78.5 2. Type 2 diabetes mellitus with diabetic neuropathy, with long-term current use of insulin ([facility]) E11.40 Z79.4 3. Chronic atrial fibrillation ([facility]) I48.20 4. Type 2 diabetes mellitus with hemoglobin A1c goal of less than 8.0% ([facility]) E11.9 5. BPH with obstruction/lower urinary tract symptoms N40.1 N13.8 6. Hearing loss, unspecified hearing loss type, unspecified laterality H91.90 Plan [facility] Internal Communication OP Atorvastatin Calcium 40 MG Oral Tablet (Lipitor) Eliquis 5 MG Oral Tablet Furosemide 40 MG Oral Tablet (Lasix) Insulin NPH Isophane & Regular (70-30) 100 UNIT/ML Subcutaneous Suspension (NovoLIN 70/30) metFORMIN HCl ER 500 MG Oral Tablet Extended Release 24 Hour (Glucophage XR) Metoprolol Tartrate 25 MG Oral Tablet (Lopressor) Tamsulosin HCl 0.4 MG Oral Capsule (Flomax) HPI: Patient location: HOME. I was in a hospital or clinic location. After connecting through televideo,patient was verified with two unique identifiers. Patient (or authorized legal technical account representative) was then informed that this was a Telemedicine visit and being conducted confidentially over secure lines. Methods to assure confidentiality were taken. Patient acknowledged consent and understanding of pr ivacy and security of the Telemedicine visit. The patient agreed to participate. Telehealth visit type: Yes, Transitions of Care What accessories are you using? None (Video Only)--brief Was there a change to the patient's care plan? No, reaffirm current plan of care Selvin Sebastian is a 76 year old male seen in his home for a [facility] telemedicine provider visit. Inpatient [facility] 12/01-12/03/21--noted he was inpatient [facility] 11/08-11/16 with new onset atrial fib, fluid overload and cellulitis. Given cephalexin 11/22 for cellulitis. In ED 11/30 for fall and found to have blood sugar 30s by EMS and taken to ED. Head CT without acute findings. CXR without acute findings. Dx bacteremia--was call back to ED d/t positive blood cultures. ID consulted and RAW STOCK MACHINE FEEDER appears to be contaminant. Linezolid for 4 days to treat cellulitis. Creat 1.3, hgb 12.4. Saw pcp 12/05/21--insulin dose reduced to 30 units breakfast and 15 units at supper. Metformin 1000 in am. Referred to [facility] Sees cardiology tomorrow. Chronic medical conditions: --pAF on eliquis --DM --insulin and metformin. Would like rose marie--has upcoming appt with [facility] 01/06/22 --hearing loss -chronic leg swelling on lasix --HLD-- on atorvastatin Condition today--very [place], denies any concerns. Staying with sister presently. He is interested in getting a rose marie. Blood sugar this am 139. He requests all rx be sent to mail order pharmacy. Component Latest Ref Rng & Units 02/27/2021 Hemoglobin A1C 4.0 - 5.6 % 13.2 (H) Estimated Average Glucose <126 mg/dL 332 (H) ROS: Review of Systems Constitutional: Negative for activity change, appetite change, chills and fatigue. Respiratory: Negative for shortness of breath. Cardiovascular: Negative for chest pain. Physical Exam (performed by assistant executive housekeeper in the patient's home and limited to available telehealth tools): BP 126/62 | Pulse 74 | Temp 36.7 C (98 F) | SpO2 94% BP Readings from Last 4 Encounters: 12/25/21 126/62 12/18/21 122/62 12/06/21 118/64 12/05/21 122/60 Wt Readings from Last 4 Encounters: 12/18/21 86.6 kg (191 lb) 12/05/21 86.8 kg (191 lb 4 oz) 11/26/21 84.3 kg (185 lb 14.4 oz) 11/20/21 82 kg (180 lb 11.2 oz) ] Physical Exam Not completed d/t no video capability. Verbal only BARTOLO Bentley [facility] 4:26 PM documented in this encounter Plan of Treatment Upcoming Encounters Date Type Specialty Care Team Description 12/26/2021 Office Visit Cardiology Del Díaz Jr., DO [address] [address] 12/27/2021 Home Visit [facility] Elda Ponce RN [address] [address] 12/31/2021 Home Visit [facility] Elda Ponce RN [address] [address] 01/06/2022 Office Visit Pharmacy Anatoly Vogel [address] [address] 02/26/2022 Office Visit Podiatry Kylie Burroughs DPM [address] [place] [address] [place] [address] 03/12/2022 Office Visit Family Medicine James Maria, DO [address] [place] [address] 06/02/2022 Office Visit Cardiology Del Díaz Jr., DO [address] [place] [address] 06/04/2022 Office Visit Family Medicine James Maria, DO [address] [place] [address] Scheduled Procedures Name Priority Associated Diagnoses Date/Ti me COLONOSCOPY FLEXIBLE PROXIMA L DIAGNOSTIC Recall Encounter for screening colonoscopy Health Maintenance Due Date Last Done Comments Yearly B-12 11/16/2020 11/16/2019, 01/11/2018 Depression Screening, Annual for Pts 12 and Over 11/21/2020 11/21/2019 DIABETES-URINE ALBUMIN/CREATININE EVERY 12 MONTHS 03/13/2021 03/13/2020, 12/13/2018, 01/11/2018, Additional history exists COVID-19 Vaccine (2 - Moderna 3-dose series) 03/22/2021 02/22/2021 DIABETES-HGBA1C EVERY 6 MONTHS 08/29/2021 02/27/2021, [...] as of this encounter Visit Diagnoses Diagnosis Dyslipidemia- Primary Other and unspecified hyperlipidemia Type 2 diabetes mellitus with diabetic neuropathy, with long-term current use of insulin (HCC) Chronic atrial fibrillation (HCC) Atrial fibrillation Type 2 diabetes mellitus with hemoglobin A1c goal of less than 8.0% (HCC) BPH with obstruction/lower urinary tract symptoms Hypertrophy of prostate with urinary obstruction and other lower urinary tract symptoms ([facility]) Hearing loss, unspecified hearing loss type, unspecified laterality documented in this encounter Advance Directives Documents on File Type Date Recorded Patient University Demonstrator Expl anation Advanced Directive service a hi [...] Directive Advanced Directive Advanced Directive Care Teams Iron Pourer Relationship Specialty Start Date End Date James Maria DO [address] [place] [address] PCP - General Family Medicine 06/07/18 documented as of this encounter
--- OUTSIDE RECORDS SUMMARY | 2023-07-31 20:23 | External Medical Summary | Summary of Care ---
Author Name Unknown Organization [place] [address] Care Team Providers Care Liquid Floor And Wall Applier Name Role Phone James Maria Primary Care Provider Reason for Visit * Reason Comments [facility]: Maintenance return Encounter Details Date Type Department Care Team Description 12/31/2021 Home Visit [facility], [facility] 132 [facility] [place] [address] Elda Ponce, RN 132 [place] [address] Allergies Active Allergy Reactions Severity Noted Date Comments Lisinopril Edema face/lips/tongue High 04/05/2018 documented as of this encounter (statuses as of 12/31/2021) Medications Medication Sig Dispensed Refills Start Date [...] 5 Tab 6 08/24/2017 Active Glucose Blood (NanteroTOGrain Management [employer] Financial Partners) STRP Use up to 4 times a day E11.9 300 Strip 3 08/24/2017 Active Blood Glucose Monitoring Suppl (CartoDB) w/Device KITIndications:Type 2 diabetes mellitus with hemoglobin [...] three weeks. 40 g 1 07/05/2021 Active ReliOn Pen [place] 32G X 4 MM (Insulin Pen Needle)Indications:T ype 2 diabetes mellitus with polyneuropathy (HCC) Use as directed with flexpen 100 Each 6 09/05/2021 Active Insulin Syringe-Needle U-100 30G X 5/16" [...] the morning. 90 Tablet 3 12/25/2021 Active Insulin NPH Isophane & Regular (70-30) 100 UNIT/ML Subcutaneous Suspension (NovoLIN 70/30)Indications:Ty pe 2 diabetes mellitus with diabetic neuropathy, with long-term current use of insulin (HCC) Inject under the skin 2 times a day. 20 units before breakfast and 15 units before supper. 30 mL 5 12/25/2021 Active Additional Information Patient taking differently: Inject under the skin 2 times a day. 15 units before breakfast and 10 units before supper., Reported on 12/27/2021 metFORMIN HCl ER 500 MG Oral Tablet [...] 11 12/27/2021 Active FreeStyle Rose Marie 2 [place] Device Test blood sugars four times daily 1 Each 0 12/27/2021 Active documented as of this encounter (statuses as of 12/31/2021) Active Problems Problem Noted Date BPH with [...] as of this encounter (statuses as of 12/31/2021) Resolved Problems Problem Noted Date Resolved Date [...] as of this encounter (statuses as of 12/31/2021) Immunizations Name Administration Dates Next Due COVID-19 [...] Sign Reading Time Taken Comments Blood Pressure 128/78 12/31/2021 11:19 AM EST Pulse 63 12/31/2021 11:19 AM EST Temperature 36.9 C (98.4 F) 12/31/2021 11:[address] Respiratory Rate 18 12/31/2021 11:19 AM EST Oxygen Saturation 97% 12/31/2021 11:19 AM EST Inhaled Oxygen Concentration - - Weight - - Height - - Body Mass Index - - documented in this encounter Progress Notes * Elda Ponce RN - 12/31/2021 10:43 AM EST Images from the original note were not included. [facility] Security Systems Specialist Monthly Visit Date: 12/31/2021 Time: 10:43 AM Name: Selvin Sebastian : 1945 Current Concerns: return F/u DM, wounds: Has not changed dressings since 12/27 when applied Dressings with small amt yellowish/greenish/brownish drainage Wounds improved in size and appearance No s/s infection Advised to change q3 days-verbalized understanding Cleansed with soap, water, thin layer vasaline applied to 1/2 ABD pad, secured with support stockings DM: Pharmacy assisting with getting pt Freestyle Rose Marie 70/30 decreased last week d/t low bsgs States bsgs went up when he started new bottle of 70/30 Range since 12/27 has been 131-304 No symptomatic highs/lows Has independently increased 70/30 back up to 20 units am, 15 units pm Reports has been washing lancet needle off with alcohol and reusing them-ADVISED NOT TO DO THIS CAN LEAD TO FALSE READINGS, USE NEW LANCET EVERY TIME CK BSG, VERBALIZED UNDERSTANDING Observed pt checking his bsg during visit and he is checking appropriately bsg 167 during visit Is aware to call [facility] when Freestyle Rose Marie arrives so that we may provide education Physical Exam: BP 128/78 | Pulse 63 | Temp 36.9 C (98.4 F) | Resp 18 | SpO2 97% Pain 0 Physical Exam Constitutional: General: He is not in acute distress. Cardiovascular: Rate and Rhythm: Rhythm irregular. Pulses: Normal pulses. Heart sounds: Murmur heard. Pulmonary: Effort: Pulmonary effort is normal. Breath sounds: Normal breath sounds. Abdominal: General: Bowel sounds are normal. Palpations: Abdomen is soft. Musculoskeletal: Right lower leg: Edema (+1) present. Left lower leg: Edema (+1) present. Skin: General: Skin is warm and dry. Neurological: Mental Status: He is alert and oriented to person, place, and time. Problems/Symptoms: Review of Systems Constitutional: Negative for activity change, appetite change, chills and fatigue. Respiratory: Negative for shortness of breath. Cardiovascular: Negative for chest pain. Medication Reconciliation: (See medication list) Does patient take medications as ordered: Yes Patient Well Being: Continues to stay with sister Denies falls Gait steady Advanced Care Planning: No documentation, see ACP note. Patient's Goals of Care: 1. Improved bsg control 2. Obtain Freestyle Rose Marie 3. Wound healing Reinforcement/Education: Instructed to report any signs of infection: Redness, swelling, uncontrolled pain, green/yellow drainage, foul odor or fever. DIABETES: -Blood sugar testing schedule: Twice a [...] medication regimen. Timing., Dosing. and Purspose. Treatment/Plan: 70/30 decreased to 15 units am, 10 units pm 12/27/21 Ceferino Davis, Pharmacist, ordering Freestyle Rose Marie meds as ordered When in person, use white board to communicate Over phone, talk with Ck bsgs bid vasaline to dressings, apply to dressings and secure to LE wounds with support hose, change at least q3d Ck bsgs qid and record on chart provided Home Interventions Provided: Home Intervention: Wound Care Reinforced current Plan of Care, including self-management and medication regimen Updated Advanced Care Planning Note Patient's 'Red Flags': 1. Instructed to report any signs of infection: Redness, swelling, uncontrolled pain, green/yellow drainage, foul odor or fever. 2. High/low bsgs 3. Redness as r/t cellulitis Patient Needs to Remember: Call [facility] with red flags Referrals Needed: none Follow Up: Is there cellular connectivity/connectivity in the home? Yes Does the patient have internet in the home? Yes Patient encouraged to call the intake phone number for all urgent but not emergent issues. Is the patient new to [facility] within the last 30 days? No, Assess appropriateness for upcoming telehealth visits. Cancel telehealth visits & schedule home visit with care team foreman(s)as indicated. Provider is in agreement with Plan of Care: Yes Scheduled to follow up with patient 01/09 with [facility] provider. Elda Ponce RN 12/31/2021 10:43 AM documented in this encounter Miscellaneous Notes * ACP (Advance Care Planning) - Elda Ponce RN - 12/31/2021 11:49 AM EST Much difficulty discussing ACP as communication has to be written for pt d/t CREEK States not sure if he would want CPR or intubation Wishes to talk to about ACP Provided with Combined Living Will and POA papers Agreed to discuss with and fill out as able and present at future HV documented in this encounter Plan of Treatment Upcoming Encounters Date Type Specialty Care Team Description 01/06/2022 Office Visit Pharmacy [facility] Erica 132 [facility] [place] [id number] 01/09/2022 Home Visit [facility] Jane Gaytan PA-C [address] [facility] [place] [address] 01/22/2022 Home Visit Family Medicine Sara Recinos, Community Health Pantry Chef [address] [place] [address] 02/11/2022 Home Visit [facility] Rica Taylor, RN [address] [place] [address] 02/26/2022 Office Visit Podiatry Kylie Burroughs, DPM 400 [facility] [place] [address] 03/12/2022 Office Visit Family Medicine James Maria, [address] [place] [address] 06/02/2022 Office Visit Cardiology Del Díaz Jr., 132 [place] [address] 06/04/2022 Office Visit Family Medicine James Maria, [address] [place] [address] Scheduled Procedures Name Priority Associated Diagnoses Date/Ti [...] Documents on File Type Date Recorded Patient Lead Operator Expl 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 Advanced Directive Advanced Directive Care Teams Liquid Floor And Wall Applier Relationship Specialty Start Date End Date James Maria DO [address] [place] [address] PCP - General Family Medicine 06/07/18 documented as of this encounter
--- OUTSIDE RECORDS SUMMARY | 2023-07-31 20:23 | External Medical Summary | Summary of Care ---
Author Name Unknown Organization [place] [address] Care Team Providers Care Assessment Rn Name Role Phone James Maria Primary Care Provider Reason for Visit * Reason Comments Dosage Adjustment In Person (Anticoag Cl inic) Diabetes Management Encounter Details Date Type Department Care Team Description 01/06/2022 Office Visit Pharm[facility], [facility] [place] [address] [facility] [address] Type 2 diabetes mellitus with hemoglobin A1c goal of less than 8.0% ([facility])* Allergies Active Allergy Reactions Severity Noted Date Comments Lisinopril Edema face/lips/tongue High 04/05/2018 documented as of this encounter (statuses as of 01/06/2022) Medications Medication Sig Dispensed Refills Start Date [...] 5 Tab 6 7 Active Glucose Blood (FrugalMechanicTOUCH [employer]Startup [employer]ak) STRP Use up to 4 times a day E11.9 300 Strip 3 7 Active Blood Glucose Monitoring Suppl (Zutux) w/Device KITIndications:Typ e 2 diabetes mellitus with [...] the morning. 90 Capsule 0 2 Active FreeStyle Rose Marie 2 Sensor Test blood sugars four times daily 2 Each 11 2 Active FreeStyle Rose Marie 2 [place] Device Test blood sugars four times daily 1 Each 0 2 Active Lantus SoloStar 100 UNIT/ML Subcutaneous Solution Pen-injector (Insulin Glargine)Indicatio ns:Type 2 diabetes mellitus with hemoglobin A1c goal of less than 8.0% (HCC) Inject under the skin 15 Units before bedtime. 15 mL 3 2 Active Insulin Lispro (1 Unit Dial) 100 UNIT/ML Subcutaneous Solution Pen-injector (HumaLOG KwikPen)Indication s:Type 2 diabetes mellitus with hemoglobin A1c goal of less than 8.0% (HCC) Inject under the skin 5 Units three times a day with meals . 15 mL 3 2 Active Pen [place] 32G X 4 MMIndications:Type 2 diabetes mellitus with hemoglobin A1c goal of less than 8.0% (HCC) Use as directed . Use to inject insulin up to 4 times daily. 400 Each 3 2 Active ReliOn Pen [place] 32G X 4 MM (Insulin Pen Needle)Indications :Type 2 diabetes mellitus with polyneuropathy (HCC) Use as directed with flexpen 100 Each 6 1 022 Discontinued Insulin NPH Isophane & Regular (70-30) 100 UNIT/ML Subcutaneous Suspension (NovoLIN 70/30)Indications: Type 2 diabetes mellitus with diabetic neuropathy, with long-term current use of insulin (HCC) Inject under the skin 2 times a day. 20 units before breakfast and 15 units before supper. 30 mL 5 2 022 Discontinued documented as of this encounter (statuses as of 01/06/2022) Active Problems Problem Noted Date BPH with [...] as of this encounter (statuses as of 01/06/2022) Resolved Problems Problem Noted Date Resolved Date [...] as of this encounter (statuses as of 01/06/2022) Immunizations Name Administration Dates Next Due COVID-19 [...] this encounter Progress Notes * Arron Vang, [facility] - 01/06/2022 2:13 PM EST Medication Therapy Disease Management [facility] - Diabetes Management Progress Note Selvin Sebastian, identified by name and date of , is a 76 year old male being seen for diabetes management/education. Patient presents for initial diabetic visit. 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/13/2020 Otitis media 2004 Sensorineural hearing loss, unilateral 2003 left Unable to do in depth history of DM due to time constraints (patient HAMILTON and requires messages to be written on a board to communicate) DIABETES: Current diabetic medications: Insulin NPH 70/30 30 units before breakfast and 15 units before dinner Metformin ER 500 mg 2 tabs AM Medication Injection Site: Abdomen Lifestyle: Diet: Unable to assess due to time constraints Glucose Review/SMBG: Readings obtained from patient device 7 day average 158 14 day average 157 30 day average 142 90 day average 144 Hypoglycemia: Does your blood sugar go below 70 mg/dL? Yes, 3 incidents over the past 2 weeks. Hyperglycemia symptoms present: none Recent Labs Units [...] controlled BP Readings from Last 3 Encounters: 12/31/21 128/78 12/27/21 110/60 12/26/21 118/62 Blood pressure at goal: yes HYPERLIPIDEMIA: Patient [...] Td or Tdap) 10/21/2021 DIABETES-FOOT EXAM 02/28/2022 ASSESSMENT & PLAN: ICD-10-CM 1. Type 2 diabetes mellitus with hemoglobin A1c goal of less than 8.0% ([facility]) E11.9 BG Readings Blood sugars controlled. BG averaging in the 140s to 150s over the past few months.Patient is experiencing lows which I explain is due to him using the 70/30 as a correction dose from time to time when his sugars go high. Medications Reviewed current regimen, patient is adherent to regimen. Patient agreeable to switch to a separate basal/bolus insulin regimen. Lantus and humalog. Diet, Exercise, Lifestyle Unable to assess due to time constraints. Patient is agreeable to SMBG 3 time(s) daily. Patient aware to contact clinic if any hypoglycemia before next visit. MEDICATION CHANGES: yes, see below; preferred pharmacy: [facility] ([facility]) Diabetic Medications: STOP: Insulin NPH 70/30 30 units before breakfast and 15 units before dinner START: Lantus 15 units QHS START: Humalog 5 untis with meals Metformin ER 500 mg 2 tabs AM FOLLOW UP: Return to clinic in 6 weeks 02/17/2022 Arron Vang RPh Clinical Pharmacist - Electrocardiographic Technician Medication Therapy Management [facility] 01/06/2022, 2:13 PM documented in this encounter Plan of Treatment Upcoming Encounters Date Type Specialty Care Team Description 01/09/2022 Home Visit [facility] Jane Gaytan PA-C [address] [place] [address] 01/22/2022 Home Visit Family Medicine Sara Recinos, Community Health Deputy Controller [address] [place] [address] 02/11/2022 Home Visit [facility] Rica Taylor, RN 132 [place] [address] 02/17/2022 Office Visit Pharmacy [facility] Erica [address] [place] [address] 02/26/2022 Office Visit Podiatry Kylie Burroughs, REMEDIOS 400 [facility] [place] [address] 03/12/2022 Office Visit Family James Rooney DO [address] [place] [address] 06/02/2022 Office Visit Cardiology Del Díaz Jr., DO [address] [place] [address] 06/04/2022 Office Visit Family James Rooney DO [address] [place] [address] Scheduled Procedures Name Priority Associated Diagnoses Date/Ti [...] Documents on File Type Date Recorded Patient Ramp Supervisor Expl 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 Directive Advanced Directive Advanced Directive Care Teams Assessment Rn Relationship Specialty Start Date End Date James Maria DO 132 [facility] [place] [address] PCP - General Family Medicine 06/07/18 documented as of this encounter
--- OUTSIDE RECORDS SUMMARY | 2023-07-31 20:23 | External Medical Summary | Summary of Care ---
Author Name Unknown Organization [place] [address] Care Team Providers Care Charting Clerk Name Role Phone James Maria Primary Care Provider Reason for Visit * Reason Onset Date Comments Information 12/30/2021 Encounter Details Date Type Department Care Team Description 12/30/2021 Telephone [facility] [place], [place] [address] [place] [address] Services, Scheduling [address] [place] [address] Information Allergies Active Allergy Reactions Severity Noted Date Comments Lisinopril Edema face/lips/tongue High 04/05/2018 documented as of this encounter (statuses as of 12/30/2021) Medications Medication Sig Dispensed Refills Start Date [...] 3 08/24/2017 Active Blood Glucose Monitoring Suppl (Betyah) w/Device KITIndications:Type 2 diabetes mellitus with hemoglobin [...] 40 g 1 07/05/2021 Active ReliOn Pen [place] 32G X 4 MM (Insulin Pen Needle)Indications:T [...] 11 12/27/2021 Active FreeStyle Rose Marie 2 [place] Device Test blood sugars four times daily 1 Each 0 12/27/2021 Active documented as of this encounter (statuses as of 12/30/2021) Active Problems Problem Noted Date BPH with [...] as of this encounter (statuses as of 12/30/2021) Resolved Problems Problem Noted Date Resolved Date [...] as of this encounter (statuses as of 12/30/2021) Immunizations Name Administration Dates Next Due COVID-19 [...] * Telephone Encounter - MICHEL Crain - 12/30/2021 11:32 AM EST of patient called in to report the patient is currently living with his sister and to see the patient at the [place] address that is in the chart under Temporary Address: [address] [place] [address]. [place]. [address] documented in this encounter Plan of Treatment Upcoming Encounters Date Type Specialty Care Team Description 12/31/2021 Home Visit [facility] Elda Ponce, RN [address] [place] [address] 01/06/2022 Office Visit Pharmacy [facility] [address] [place] [address] 01/09/2022 Home Visit [facility] Jane Gaytan PA-C [address] [place] [address] [place] [address] 02/26/2022 Office Visit Podiatry Kylie Burroughs DPM 400 [facility] [place] [address] 03/12/2022 Office Visit Family Medicine James Maria, [address] [place] [address] 06/02/2022 Office Visit Cardiology Del Díaz Jr., DO [address] [place] [address] 06/04/2022 Office Visit Family Medicine James Maria, [address] [place] [address] Scheduled Procedures Name Priority Associated Diagnoses Date/Ti [...] Documents on File Type Date Recorded Patient Upholstery Estimator Expl anation Advanced Directive service a hi [...] Directive Advanced Directive Advanced Directive Care Teams Charting Clerk Relationship Specialty Start Date End Date James Maria DO [address] [place] [address] PCP - General Family Medicine 06/07/18 documented as of this encounter
--- OUTSIDE RECORDS SUMMARY | 2023-07-31 20:23 | External Medical Summary | Summary of Care ---
Author Name Unknown Organization [place] [address] Care Team Providers Care Umbrella Tipper Machine Name Role Phone Yariel Mariavor Sophy Primary Care Provider Reason for Visit * Reason Comments Medication Management Encounter Details Date Type Department Care Team Description 12/27/2021 Pharmacy [facility], [facility] [address] [facility] [place] [phone] Pharmacist, [facility] [address] [facility] [address] Type 2 diabetes mellitus with diabetic neuropathy, with long-term current use of insulin ([facility])* Allergies Active Allergy Reactions Severity Noted Date Comments Lisinopril Edema face/lips/tongue High 04/05/2018 documented as of this encounter (statuses as of 12/27/2021) Medications Medication Sig Dispensed Refills Start Date [...] 5 Tab 6 08/24/2017 Active Glucose Blood (Merge[employer]rs AGTOUCH [email or web address]) STRP Use up to 4 times a day E11.9 300 Strip 3 08/24/2017 Active Blood Glucose Monitoring Suppl (Merge[employer]rs AGTOEnprise Solutions [email or web address]) w/Device KITIndications:Type 2 diabetes mellitus with hemoglobin A1c goal of 7.0%-8.0% ([facility]) Use as directed. Recommend check [...] 40 g 1 07/05/2021 Active ReliOn Pen [place] 32G X 4 MM (Insulin Pen Needle)Indications:T ype 2 diabetes mellitus with polyneuropathy (HCC) Use as directed with flexpen 100 Each 6 09/05/2021 Active Insulin Syringe-Needle U-100 30G X 5/16" 0.3 MLIndications:Type 2 diabetes mellitus with polyneuropathy (HCC),Type 2 diabetes mellitus with hemoglobin A1c goal of less than 8.0% ([facility]) Use up to 4 x [...] neuropathy, with long-term current use of insulin ([facility]) Inject under the skin 2 times a [...] 11 12/27/2021 Active FreeStyle Rose Marie 2 [place] Device Test blood sugars four times daily 1 Each 0 12/27/2021 Active documented as of this encounter (statuses as of 12/27/2021) Active Problems Problem Noted Date BPH with [...] as of this encounter (statuses as of 12/27/2021) Resolved Problems Problem Noted Date Resolved Date [...] as of this encounter (statuses as of 12/27/2021) Immunizations Name Administration Dates Next Due COVID-19 [...] as of this encounter Progress Notes * Ceferion Davis, [facility] - 12/27/2021 2:39 PM EST [facility] - Pharmacy Discussed with RNCM and sugars reviewed. Multiple lows, both during the day and overnight. Taking metformin 1000mg daily and Novolin 70/30: 20 units breakfast and 15 units supper. Patient reports that he decreases insulin on own to 15 units breakfast and 10 units dinner when having a low. This would have been my recommendation moving forward and patient reports no lows after taking this reduced dose. Patient to take metformin 1000mg daily and Novolin 70/30: 15 units breakfast and 10 units supper moving forward. Patient has close follow-up with RNCM. Follow-up as requested as patient is very hard of hearing and cannot manage via phone. Interested in Rose Marie and aware of cost estimates. Will submit to [employer]. Continuous Glucose Monitoring (CGM) Referral Device: PCS Edventuresyle Rose Marie 2 Patient is currently taking insulin 2 times daily. Patient is currently checking blood sugars 2+ times daily. Hemoglobin A1C last 3 results: Lab Results Component Value Date/Time HEMOGLOBIN A1C - [facility] 13.2 (H) 02/27/2021 11:24 AM HEMOGLOBIN A1C - [facility] 7.4 (H) 03/13/2020 09:26 AM HEMOGLOBIN A1C - [facility] 11.5 (H) 11/16/2019 08:37 AM HEMOGLOBIN A1C - [facility] 14.3 (H) 12/13/2018 03:03 PM HEMOGLOBIN-OUTSIDE LAB 13.3 (A) 11/08/2021 12:00 AM Ceferino Davis RPh [facility] 12/27/2021,2:50 PM documented in this encounter Plan of Treatment Upcoming Encounters Date Type Specialty Care Team Description 12/31/2021 Home Visit [facility] Elda Ponce RN [address] [place] [address] 01/06/2022 Office Visit Pharmacy [facility] Erica [address] [place] [address] 01/09/2022 Home Visit [facility] Jane Gaytan PA-C [address] [place] [address] [place] [address] 02/26/2022 Office Visit Podiatry Kylie Burroughs DPM [address] [place] [address] 03/12/2022 Office Visit Family Medicine James Maria, DO [address] [place] [address] 06/02/2022 Office Visit Cardiology Del Díaz Jr., DO [address] [place] [address] 06/04/2022 Office Visit Family Medicine James Maria, DO [address] [place] [address] Scheduled Procedures Name Priority Associated Diagnoses Date/Ti [...] neuropathy, with long-term current use of insulin (HCC)- Primary documented in this encounter Advance Directives Documents on File Type Date Recorded Patient Commercial Litigation Associate Expl anation Advanced Directive service a hi [...] Directive Advanced Directive Advanced Directive Care Teams Umbrella Tipper Machine Relationship Specialty Start Date End Date James Maria, [address] [place] [address] PCP - General Family Medicine 06/07/18 documented as of this encounter
--- OUTSIDE RECORDS SUMMARY | 2023-07-31 20:23 | External Medical Summary | Summary of Care ---
Author Name Unknown Organization [place] [address] Care Team Providers Care Director Of Early Childhood Education Name Role Phone James Maria DO Primary Care Provider Reason for Visit * Reason Onset Date Comments Medication Pre-auth 01/08/2022 Humalog kwik pen Encounter Details Date Type Department Care Team Description 01/08/2022 Telephone Pharmacy, [facility] [address] [place] [address] James Maria DO [address] [facility] [place] [address] Medication Pre-auth (Humalog kwikpen ) Allergies Active Allergy Reactions Severity Noted Date Comments Lisinopril Edema face/lips/tongue High 04/05/2018 documented as of this encounter (statuses as of 01/08/2022) Medications Medication Sig Dispensed Refills Start Date [...] 5 Tab 6 7 Active Glucose Blood (CorsairTOUCH VERIO) STRP Use up to 4 times a day E11.9 300 Strip 3 7 Active Blood Glucose Monitoring Suppl (CorsairTOZeusIO) w/Device KITIndications:Type 2 diabetes mellitus with hemoglobin [...] 11 2 Active FreeStyle Rose Marie 2 [place] Device Test blood sugars four times daily 1 Each 0 2 Active Lantus SoloStar 100 UNIT/ML Subcutaneous Solution Pen-injector (Insulin Glargine)Indication s:Type 2 diabetes mellitus with hemoglobin A1c goal of less than 8.0% (HCC) Inject under the skin 15 Units before bedtime. 15 mL 3 2 Active Pen [place] 32G X 4 MMIndications:Type 2 diabetes mellitus with hemoglobin A1c goal of less than 8.0% (HCC) Use as directed . Use to inject insulin up to 4 times daily. 400 Each 3 2 Active NovoLOG FlexPen 100 UNIT/ML Subcutaneous Solution Pen-injector (insulin aspart) Inject under the skin 5 Units three times a day with meals . 15 mL 3 2 Active Insulin Lispro (1 Unit Dial) 100 UNIT/ML Subcutaneous Solution Pen-injector (HumaLOG KwikPen)Indications :Type 2 diabetes mellitus with hemoglobin A1c goal of less than 8.0% (HCC) Inject under the skin 5 Units three times a day with meals . 15 mL 3 2 01/09/20 22 Discontinu ed(Medicat ion/Dose Changed) documented as of this encounter (statuses as of 01/08/2022) Active Problems Problem Noted Date BPH with [...] as of this encounter (statuses as of 01/08/2022) Resolved Problems Problem Noted Date Resolved Date [...] as of this encounter (statuses as of 01/08/2022) Immunizations Name Administration Dates Next Due COVID-19 [...] Notes * Telephone Encounter - Arron Vang [facility] - 01/08/2022 9:52 AM EST Novolog flex pen sent in instead of humalog. Patient aware of change. Arron Vang [facility] Clinical Pharmacist 01/08/2022, 9:52 AM * Telephone Encounter - Rubia Richard [facility] - 01/08/2022 9:31 AM EST Forwarding to [facility] in clinic pharmacist. Patient not currently managed for Diabetes by telepharmacy. Please advise. Thank you, Rubia Richard PharmD Clinical Pharmacist TelePharmacy 01/08/22 9:31 AM [phone] * Telephone Encounter - JOHN Austin - 01/08/2022 9:29 AM EST [facility] mail order calling to inform doctor that the patient's insurance will not pay for this medication without a completed prior authorization. Did confirm this information with the pharmacy. Pt's current insurance information is as follows: Patient name: Selvin Sebastian ID number: [id number] BIN number: [id number] PCN number: [id number] Group number: Subscriber name: Selvin Sebastian Primary or Secondary Insurance:Primary Medication: Humalog Kwikpen 100 unit/mL SOPN Reason for Request: Needs [place] Pharmacy and phone number: [facility] mail order [phone] Rx plan and phone number: [phone] What alternative medications does the pharmacy have in stock?: Thanks, Candy Smith [facility] 01/08/2022,9:29 AM documented in this encounter Plan of Treatment Upcoming Encounters Date Type Specialty Care Team Description 01/09/2022 Home Visit [facility] Jane Gaytan PA-C [address] [place] [address] 01/22/2022 Home Visit Family Medicine Sara Recinos, Community Health Customer Service Advisor [address] [place] [address] 02/11/2022 Home Visit [facility] Rica Taylor RN [address] [address] [address] 02/17/2022 Office Visit Pharmacy [facility] Erica [address] [address] 02/26/2022 Office Visit Podiatry Kylie Burroughs, DPM [address] [facility] [place] [address] 03/12/2022 Office Visit Family James Rooney DO [address] [address] 06/02/2022 Office Visit Cardiology Del Díaz Jr., DO [address] [address] 06/04/2022 Office Visit Family James Rooney DO [address] [address] Scheduled Procedures Name Priority Associated Diagnoses Date/Ti [...] Documents on File Type Date Recorded Patient Sheet Catcher Expl 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 Directive Advanced Directive Advanced Directive Care Teams Director Of Early Childhood Education Relationship Specialty Start Date End Date James Maria DO [address] [address] PCP - General Family Medicine 06/07/18 documented as of this encounter
--- OUTSIDE RECORDS SUMMARY | 2023-07-31 20:23 | External Medical Summary | Summary of Care ---
Author Name Unknown Organization [place] [address] Care Team Providers Care Racking Machine Operator Name Role Phone Rylan Mariar Sophy Primary Care Provider Reason for Referral * Evaluate & Treat - Unlimited Visits (Within 10 days (routine)) - Authorized Specialty Diagnoses / Procedures Referred By Collin leigh Referred To Contact [employer] / Nutrition Services Diagnoses Diabetic ulcer of toe of right foot associated with type 2 diabetes mellitus, with fat layer exposed (HCC) Jane Gaytan PA-C [address] [place] [address] Referral ID Status Reason Start Date Expiration Date Visits Requested Visits Authorized [id number] Authorized Specialty Services Required 01/09/[phone] Question Answer Referral Priority Within 10 days (routine) Comments This referral is for Diabetes Self-Management Training (DSMT) by a recognized [place] [employer] (ADA) conservation educator: Nurse (RN), Registered Dietitian Motocross Racer (RDN), and/or Diabetes Medical Nutrition Therapy (MNT) Management (dietitian only). Diabetes educators are responsible for assessing the participant's diabetes education needs, and providing diabetes self-management training in accordance with the standards set by the ADA for DSMT. Any adjustment in diabetes therapy will be made within the guidelines of standards of practice and [employer] approved policies and procedures. I understand that the conservation educator will keep me informed. Areas of [...] not appropriate of I specify otherwise here: n/a * Evaluate & Treat - Unlimited Visits (Within 10 days (routine)) - Authorized Specialty Diagnoses / Procedures Referred By Collin t Referred To Contact Dietitian / Nutrition Services Diagnoses Type 2 diabetes mellitus with polyneuropathy (HCC) Jane Gaytan PA-C [address] [place] [address] Referral ID Status Reason Start Date Expiration Date Visits Requested Visits Authorized [id number] Authorized Specialty Services Required 01/09/[phone] Question Answer Referral Priority Within 10 days (routine) What condition is the patient being seen for? All other conditions-use the comment box Comments Please call [id number] Sarbjit Fiore. Sarbjit prepares meals for pt and is concerned about his diet. Pt diabetic Reason for Visit * Reason Comments [facility]: Transition of Care Encounter Details Date Type Department Care Team Description 01/09/2022 Home Visit [facility], [place] [address] [place] [address] Jane Gaytan PA-C [address] [place] [place] [address] Diabetic ulcer of toe of right foot associated with type 2 diabetes mellitus, with fat layer exposed (HCC)*; Atherosclerosis of eagle co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 angina pectoris, unspecified whether eagle or transplanted heart; BPH with obstruction/lower urinary tract symptoms; Dyslipidemia; Mixed conductive and sensorineural hearing loss of right ear with restricted hearing of left ear; Type 2 diabetes mellitus with polyneuropathy (HCC) Allergies Active Allergy Reactions Severity Noted Date Comments Lisinopril Edema face/lips/tongue High 04/05/2018 documented as of this encounter (statuses as of 01/09/2022) Medications Medication Sig Dispensed Refills Start Date End Date Status Blood Glucose Monitoring Suppl (Kynetx ULTRA SYSTEM) W/DEVICE KIT Use as directed [...] 3 08/24/2017 Active Blood Glucose Monitoring Suppl (IpselexUCH VERIO) w/Device KITIndications:Type 2 diabetes mellitus with hemoglobin A1c goal of 7.0%-8.0% ([facility]) Use as directed. Recommend check glucose levels [...] goal of less than 8.0% ([facility]) Use up to 4 x a day [...] 11 12/27/2021 Active FreeStyle Rose Marie 2 [place] Device Test blood sugars four times daily 1 Each 0 12/27/2021 Active Lantus SoloStar 100 UNIT/ML Subcutaneous Solution Pen-injector (Insulin Glargine)Indications :Type 2 diabetes mellitus with hemoglobin A1c goal of less than 8.0% (HCC) Inject under the skin 15 Units before bedtime. 15 mL 3 01/06/2022 Active Pen [place] 32G X 4 MMIndications:Type 2 diabetes mellitus [...] as of this encounter (statuses as of 01/09/2022) Active Problems Problem Noted Date Diabetic ulcer of toe of rig ht foot associated with type 2 diabetes mellitus, with fat layer exposed 01/09/2022 Atherosclerosis of eagle coronary arter y without angina pectoris 01/09/2022 [...] as of this encounter (statuses as of 01/09/2022) Resolved Problems Problem Noted Date Resolved Date [...] as of this encounter (statuses as of 01/09/2022) Immunizations Name Administration Dates Next Due COVID-19 [...] Sign Reading Time Taken Comments Blood Pressure 104/62 01/09/2022 10:15 AM EST Pulse 67 01/09/2022 10:15 AM EST Temperature - - Respiratory Rate - - Oxygen Saturation - - Inhaled Oxygen Concentration - - Weight - - Height - - Body Mass Index - - documented in this encounter Progress Notes * Jane Gaytan PA-C - 01/09/2022 6:55 AM EST [facility] Provider Visit Date: 01/09/2022 Time: 6:55 AM HPI: Selvin Sebastian is a 76 year old male seen in his home for a provider visit. Invited in by pt's brother in law. He explains that pt is very hard of hearing. Pt produces white board and asks that I write questions down so that he can answer. From chart review: Pt has had several hospital stays and ED visits in past 3 months. Most recently he was admitted to [facility] from 12/01 to 12/03. He was also in [facility] from 11/08 to11/16 for new onset atrial fib, fluid overload and cellulitis. He was also seen in the ED on 11/30 for fall and found to have blood sugar 30s. During his most recent stay (12/01-12/03) he wascalled and told to come back to the hospital because blood cultures from his 11/30 ER visit were posi tive. Two out of four blood cultures were positive for gram positive cocci. He was started on Daptomycin but switched to PO Linezolid for 14 days. BSG were also concerning with frequent lows reportedby pt. Pharmacist was consulted and he was placed on Novolin 70/30 15u daily. His Metformin remained at 500mg BID. His Novolin NPH was changed to 15u in am. Since pt has been home, he has felt good. He is happy to be home. He states that at least he can get out and go places when he is home. He notes that his only concern is of his BSGs which I reassuredhim are much better than the previous lows that he was having. He tells me that "they are changing my insulin again. He produces a paper with instructions to take Lantus 15u at bedtime, Novolog 5u with meals and to stop Novolog 70/30. He has finished his antibiotic for cellulitis. Blood sugars have been running much better Today he is 135mg/dl. His lowest reading over a 13 day period was 55mg/dl. His highest 13 day reading was 300mg/dl. He is wearing compression socks and states that he changes his dressing every day using telfa and vasaline. He denies fevers or chills. Overall he feels well. 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 ROS: Review of Systems Constitutional: Positive for fatigue. HENT: Positive for ear discharge, hearing loss, rhinorrhea and sneezing. Respiratory: Positive for shortness of breath (PIERCE). Cardiovascular: Positive for chest pain (occasional) and leg swelling (occasional). Gastrointestinal: Positive for diarrhea (occasional, food related). Musculoskeletal: Positive for arthralgias. Skin: Positive for wound (lower extremities). Neurological: Positive for dizziness ("when my sugar gets low"). Physical Exam: BP 104/62 | Pulse 67 Physical Exam Constitutional: General: He is not in acute distress. Appearance: Normal appearance. He is not ill-appearing, toxic-appearing or diaphoretic. HENT: Head: Normocephalic and atraumatic. Right Ear: External ear normal. Left Ear: External ear normal. Ears: Comments: Extremely hard of hearing Nose: Nose normal. Mouth/Throat: Mouth: Mucous membranes are moist. Eyes: General: No scleral icterus. Right eye: No discharge. Left eye: No discharge. Extraocular Movements: Extraocular movements intact. Conjunctiva/sclera: Conjunctivae normal. Pupils: Pupils are equal, round, and reactive to light. Cardiovascular: Rate and Rhythm: Normal rate. Rhythm irregular. Heart sounds: Murmur heard. No friction rub. No gallop. Pulmonary: Effort: Pulmonary effort is normal. No respiratory distress. Breath sounds: Normal breath sounds. No stridor. No wheezing, rhonchi or rales. Chest: Chest wall: No tenderness. Abdominal: General: Abdomen is flat. Bowel sounds are normal. There is no distension. Palpations: Abdomen is soft. There is no mass. Tenderness: There is no abdominal tenderness. There is no right CVA tenderness, left CVA tendernessor guarding. Musculoskeletal: General: No swelling, tenderness, deformity or signs of injury. Normal range of motion. Cervical back: Neck supple. Right lower leg: Edema (1+ edema from feet to knees) present. Left lower leg: Edema (1+ edema from feet to knees) present. Skin: General: Skin is warm and dry. Capillary Refill: Capillary refill takes less than 2 seconds. Coloration: Skin is not jaundiced or pale. Findings: No bruising, erythema, lesion or rash. Comments: Superficial skin tear over right anterior tibia. No redness, no drainage. Neurological: Mental Status: He is alert and oriented to person, place, and time. Cranial Nerves: No cranial nerve deficit. Sensory: No sensory deficit. Motor: No weakness. Coordination: Coordination normal. Gait: Gait normal. Deep Tendon Reflexes: Reflexes normal. Psychiatric: Mood and Affect: Mood normal. Behavior: Behavior normal. Thought Content: Thought content normal. Judgment: Judgment normal. Assessment/Plan: 1. Diabetic ulcer of toe of right foot associated with type 2 diabetes mellitus, with fat layer exposed (HCC) - DIABETES MANAGEMENT EDUCATION (ADA) REFERRAL - Continue wound dressing 2. Atherosclerosis of eagle co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 angina pectoris, unspecified whether eagle ortransplanted heart - Stable. - Significant heart murmur noted on exam. Pt states that he has had it for several years. Followed by Dr. Díaz 3. BPH with obstruction/lower urinary tract symptoms - Stable on Flomax 4. Dyslipidemia - Stable. Not on statin 5. Mixed conductive and sensorineural hearing loss of right ear with restricted hearing of left ear 6. Type 2 diabetes mellitus with polyneuropathy (HCC) - NUTRITION-CLINICAL DIETITIAN REFERRAL OP Home Interventions Provided: Specialty Referral Placed Reinforced current Plan of Care, including self-management and medication regimen - contacted [facility] for pt and gave permission for to speak on pt's behalf due to hearing loss. Jane Gaytan PA-C documented in this encounter Plan of Treatment Upcoming Encounters Date Type Specialty Care Team Description 01/22/2022 Home Visit Family Medicine Sara Recinos, Community Health Oil Dipper [address] [place] [address] 02/11/2022 Home Visit [facility] Rica Taylor RN [address] [address] 02/17/2022 Office Visit Pharmacy [facility] Erica [address] [address] 02/26/2022 Office Visit Podiatry Kylie Burroughs, REMEDI[facility] [address] [place] [address] [place] [address] 03/12/2022 Office Visit Family Medicine James Maria DO [address] [address] 06/02/2022 Office Visit Cardiology Del Díaz Jr., DO [address] [address] 06/04/2022 Office Visit Family Medicine James Maria, DO [address] [place] [address] Scheduled Procedures Name Priority Associated Diagnoses Date/Ti me COLONOSCOPY FLEXIBLE PROXIMA L DIAGNOSTIC Recall Encounter for screening colonoscopy Scheduled Referrals Name Type Priority Associated Diagnoses Orde r Schedule NUTRITION-CLINICAL DIETITIAN REFERRAL OP Referral Within 10 days (routine) Type 2 diabetes mellitus with polyneuropathy (HCC) Ordered: 01/09/2022 DIABETES MANAGEMENT EDUCATION (ADA) REFERRAL Referral Within 10 days (routine) Diabetic ulcer of toe of right foot associated with type 2 diabetes mellitus, with fat layer exposed (HCC) Ordered: 01/09/2022 Health Maintenance Due Date [...] encounter Visit Diagnoses Diagnosis Diabetic ulcer of toe of right foot associated with type 2 diabetes mellitus, with fat layer exposed (HCC)- Primary Atherosclerosis of eagle co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 angina pectoris, unspecified whether eagle or transplanted heart BPH with obstruction/lower urinary tract symptoms Hypertrophy of prostate with urinary obstruction and other lower urinary tract symptoms (LUTS) Dyslipidemia Other and unspecified hyperlipidemia Mixed conductive and sensorineural hearing loss of right ear with restricted hearing of left ear Type 2 diabetes mellitus with polyneuropathy (HCC) Type II or unspecified type diabetes mellitus with neurological manifestations, not stated as uncontrolled documented in this encounter Advance Directives Documents on File Type Date Recorded Patient Substance Abuse Technician Expl 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 Directive Advanced Directive Advanced Directive Care Teams Racking Machine Operator Relationship Specialty Start Date End Date James Maria DO [address] [place] [address] PCP - General Family Medicine 06/07/18 documented as of this encounter
--- OUTSIDE RECORDS SUMMARY | 2023-07-31 20:23 | External Medical Summary | Summary of Care ---
Author Name Unknown Organization [place] [address] Care Team Providers Care Crop Puller Name Role Phone James Maria Primary Care Provider Reason for Visit * Reason Comments [facility]: Maintenance return Encounter Details Date Type Department Care Team Description 12/31/2021 Home Visit [facility], [facility] [address] [facility] [place] [address] Elda Ponce, RN [address] [facility] [place] [address] Allergies Active Allergy Reactions Severity Noted Date [...] 5 Tab 6 08/24/2017 Active Glucose Blood (InnovegaTOBlip VERMarketRiders) STRP Use up to 4 times a day E11.9 300 Strip 3 08/24/2017 Active Blood Glucose Monitoring Suppl (Clipsure) w/Device KITIndications:Type 2 diabetes mellitus with hemoglobin [...] 40 g 1 07/05/2021 Active ReliOn Pen [place] 32G X 4 MM (Insulin Pen Needle)Indications:T [...] 11 12/27/2021 Active FreeStyle Rose Marie 2 [place] Device Test blood sugars four times daily [...] note were not included. [facility] Cardio Clin[facility] Monthly Visit Date: 12/31/2021 Time: 10:43 AM [...] 167 during visit Is aware to call [facility] when Freestyle Rose Marie arrives so that [...] r/t cellulitis Patient Needs to Remember: Call [facility] with red flags Referrals Needed: none Follow Up: Is there cellular connectivity/connectivity in the home? Yes Does the patient have internet in the home? Yes Patient encouraged to call the intake phone number for all urgent but not emergent issues. Is the patient new to [facility] within the last 30 days? No, Assess appropriateness for upcoming telehealth visits. Cancel telehealth visits & schedule home visit with care production team leader(s)as indicated. Provider is in agreement with Plan of Care: Yes Scheduled to follow up with patient 01/09 with [facility] provider. Elda Ponce RN 12/31/2021 10:43 AM documented in this encounter Miscellaneous Notes * ACP (Advance Care Planning) - Elda Ponce RN - 12/31/2021 11:49 AM EST Much difficulty discussing ACP as communication has to be written for pt d/t [place]OWER [place] States not sure if he would want [...] Clinic Erica [address] [facility] [address] [id number] 01/09/2022 Home Visit [facility] Jane Gaytan PA-C [address] [facility] [place] [address] 01/22/2022 Home Visit Family Medicine Sara Recinos, Community Health Ironworker Wire Fence Erector [address] [place] [address] 02/11/2022 Home Visit [facility] Rica Taylor, RN [address] [address] 02/26/2022 Office Visit Podiatry Kylie Burroughs, DPM [address] [facility] [place] [address] 03/12/2022 Office Visit Family Medicine James Maria, [address] [address] 06/02/2022 Office Visit Cardiology Del Díaz Jr., [address] [address] 06/04/2022 Office Visit Family Medicine James Maria, [address] [address] Scheduled Procedures Name Priority Associated Diagnoses Date/Ti [...] Documents on File Type Date Recorded Patient Rotary Surface Grinder Expl 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 Advanced Directive Advanced Directive Care Teams Crop Puller Relationship Specialty Start Date End Date James Maria DO [address] [address] PCP - General Family Medicine 06/07/18 documented as of this encounter
--- OUTSIDE RECORDS SUMMARY | 2023-07-31 20:23 | External Medical Summary | Summary of Care ---
Author Name Unknown Organization [facility] [place] [address] Care Team Providers Care Senior Officer Name Role Phone James Maria Primary Care Provider Reason for Visit * Reason Comments [facility]: Acute ck LE's for jada lulitis, edema Encounter Details Date Type Department Care Team Description 12/27/2021 Home Visit [facility], [facility] [address] [facility] [place] [address] Elda Ponce, RN 132 [facility] [place] [address] Allergies Active Allergy Reactions Severity Noted Date [...] 5 Tab 6 08/24/2017 Active Glucose Blood (ecomomTOUCH VERIO) STRP Use up to 4 times a day E11.9 300 Strip 3 08/24/2017 Active Blood Glucose Monitoring Suppl (Yantra) w/Device KITIndications:Type 2 diabetes mellitus with hemoglobin A1c goal of 7.0%-8.0% ([facility]) Use as directed. Recommend check glucose levels [...] 40 g 1 07/05/2021 Active ReliOn Pen [place] 32G X 4 MM (Insulin Pen Needle)Indications:T [...] before supper. 30 mL 5 12/25/2021 Active metFORMIN HCl ER 500 MG [...] the morning. 90 Capsule 0 12/25/2021 Active documented as of this encounter (statuses [...] Reading Time Taken Comments Blood Pressure 110/60 12/27/2021 12:10 PM EST Pulse 64 12/27/2021 12:10 PM EST Temperature 36.7 C (98.1 F) 12/27/2021 12:[address] Respiratory Rate - - Oxygen Saturation 98% 12/27/2021 12:10 PM EST Inhaled Oxygen Concentration - - Weight - - Height - - Body Mass Index - - documented in this encounter Progress Notes * Elda Ponce RN - 12/27/2021 10:49 AM EST Images from the original note were not included. [facility] [employer] Sprayer Visit Date: 12/27/2021 Time: 10:49 AM Name: Selvin Sebastian : 1945 Situation: LE ck for cellulitis Background: [facility] 12/01-12/03 for bacteremia r/t cellulitis RLE, new onset a-fib, fluid overload, fall 11/30 r/t bsgin 30's Poorly controlled bsgs MTM pharmacist has had difficulty reaching pt Pt interested in Freestyle Rose Marie Assessment: TT above bsg list to Ceferino Davis [facility] Pharmacist Informed him pt taking metformin 1000mg qam Ordered 20 units am, 15 untis pm When getting low readings pt decreases to 15 units and 10 units which has prevented lows Has multiple small wounds b/l anterior LEs Has not been covering with dressings and when pulls support stockings down the scabs come off Has been leaving support hose down around ankles Wounds cleansed with soap, water vasaline applied to ABD ABD secured with support hose to knee Encouraged to change q3d Sleeps with stockings on Problems/Symptoms: Review of Systems Constitutional: Negative for activity change, appetite change, chills and fatigue. Eyes: Negative. Respiratory: Negative. Negative for shortness of breath. Cardiovascular: Positive for leg swelling (b/l le pitting +2). Negative for chest pain and palpitations. Gastrointestinal: Negative. Genitourinary: Negative. Musculoskeletal: Negative. Skin: Positive for wound (multiple small scabs anterior b/l le's, no s/s infection, no drainage). Neurological: Negative. Hematological: Negative. Psychiatric/Behavioral: Negative. Physical Exam: BP 110/60 | Pulse 64 | Temp 36.7 C (98.1 F) | SpO2 98% Pain 0 Physical Exam Constitutional: General: He is not in acute distress. Cardiovascular: Rate and Rhythm: Rhythm irregular. Pulses: Normal pulses. Heart sounds: Murmur heard. Pulmonary: Effort: Pulmonary effort is normal. Breath sounds: Normal breath sounds. Abdominal: General: Bowel sounds are normal. Palpations: Abdomen is soft. Musculoskeletal: Right lower leg: Edema (+2) present. Left lower leg: Edema (+2) present. Skin: General: Skin is warm and dry. Neurological: Mental Status: He is alert and oriented to person, place, and time. Treatment/Plan: 70/30 decreased to 15 units am, [...] record on chart provided Home Interventions Provided: Consulted PCP/Specialist Reinforced current Plan of Care, including self-management and medication regimen Updated Exacerbation Plan Patient's Goals of Care: 1. Improvement in blood sugar control 2. Get Freestyle Rose Marie 3. Wound healing Patient's 'Red Flags': 1. Instructed to report any signs of infection: Redness, swelling, uncontrolled pain, green/yellow drainage, foul odor or fever. 2. High/low bsgs 3. Redness as r/t to cellulitis Patient Needs to Remember: Call [facility] with red flags Referrals Needed: none Follow Up: Is there cellular connectivity/connectivity in the home? Yes Does the patient have internet in the home? Yes Patient encouraged to call the intake phone number for all urgent but not emergent issues. Scheduled to follow up with patient in one week. Elda Ponce RN 12/27/2021 10:49 AM documented in this encounter Plan of Treatment Upcoming Encounters Date Type Specialty Care Team Description 12/27/2021 [place] [address] [facility] [place] [address] 12/31/2021 [facility] Visit [facility] Elda Ponce RN [address] [place] [address] 01/06/2022 Office Visit Pharmacy Anatoly V[facility] Erica [address] [place] [address] 02/26/2022 Office Visit Podiatry Kylie Burroughs DPM [address] [place] [address] 03/12/2022 Office Visit Family Medicine James Maria, [address] [place] [address] 06/02/2022 Office Visit Cardiology Del Díaz Jr., DO [address] [place] [address] 06/04/2022 Office Visit Family Medicine James Maria, [address] [place] [address] Scheduled Procedures Name Priority Associated Diagnoses Date/Ti [...] Documents on File Type Date Recorded Patient Deckhand Fishing Vessel Expl anation Advanced Directive service a hi [...] Directive Advanced Directive Advanced Directive Care Teams Senior Officer Relationship Specialty Start Date End Date James Maria DO 132 [facility] [place] [address] PCP - General Family Medicine 06/07/18 documented as of this encounter
--- OUTSIDE RECORDS SUMMARY | 2023-07-31 20:23 | External Medical Summary | Summary of Care ---
Author Name Unknown Organization [place] [address] Care Team Providers Care Otr Hazmat Company Driver Name Role Phone Yariel Mariavor Sophy Primary Care Provider Reason for Visit * Reason Comments Medication Management Encounter Details Date Type Department Care Team Description 12/27/2021 Pharmacy [facility] [address] [facility] [place] [id number] Pharmacist, [facility] [address] [facility] [place] [address] Type 2 diabetes mellitus with diabetic neuropathy, with long-term current use of insulin ([facility])* Allergies Active Allergy Reactions Severity [...] 5 Tab 6 08/24/2017 Active Glucose Blood (RawbotsTOUCH VERFlint Capital) STRP Use up to 4 times a day E11.9 300 Strip 3 08/24/2017 Active Blood Glucose Monitoring Suppl (RawbotsTOCoskata VERFlint Capital) w/Device KITIndications:Type 2 diabetes mellitus with hemoglobin A1c goal of 7.0%-8.0% ([facility]) Use as directed. Recommend check [...] 40 g 1 07/05/2021 Active ReliOn Pen [place] 32G X 4 MM (Insulin Pen Needle)Indications:T ype 2 diabetes mellitus with polyneuropathy (HCC) Use as directed with flexpen 100 Each 6 09/05/2021 Active Insulin Syringe-Needle U-100 30G X 5/16" 0.3 MLIndications:Type 2 diabetes mellitus with polyneuropathy (HCC),Type 2 diabetes mellitus with hemoglobin A1c goal of less than 8.0% ([facility]) Use up to 4 x [...] long-term current use of insulin ([facility]) Inject under the skin 2 [...] as of this encounter Progress Notes * Ceferino Davis, [facility] - 12/27/2021 2:39 PM EST [facility] [...] of hearing and cannot manage via phone. Will also request RNCM obtain labs including A1c which is overdue and needed for continued supply of Rose Marie supplies. Interested in Rose Marie and aware of cost estimates. Will submit to [employer]. Continuous Glucose Monitoring (CGM) Referral Device: Mouth Foodsstyle Rose Marie 2 Patient is currently taking [...] Home Elda Ponce RN [address] [place] [address] 01/06/2022 Office Visit Pharmacy [facility] Erica [address] [place] [address] 01/09/2022 [facility] Visit [facility] Jane Gaytan PA-C [address] [facility] [address] 02/26/2022 Office Visit Podiatry Kylie Burroughs, DPM [address] [place] [address] 03/12/2022 Office Visit Family Medicine James Maria, DO [address] [place] [address] 06/02/2022 Office Visit Cardiology Del Díaz Jr., [address] [place] [address] 06/04/2022 Office Visit Family Medicine James Maria, [address] [place] [address] Scheduled Procedures Name Priority Associated Diagnoses Date/Ti [...] Documents on File Type Date Recorded Patient Flexo Operator Expl 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 Directive Advanced Directive Advanced Directive Care Teams Otr [employer]mat Company Driver Relationship Specialty Start Date End Date James Maria DO [address] [place] [address] PCP - General Family Medicine 06/07/18 documented as of this encounter
--- OUTSIDE RECORDS SUMMARY | 2023-07-31 20:23 | External Medical Summary | Summary of Care ---
Author Name Unknown Organization [facility] [address] Care Team Providers Care Water Resource Manager Name Role Phone Yariel Mariavor Spohy Primary Care Provider Reason for Visit * Reason Comments Medication Management Encounter Details Date Type Department Care Team Description 12/27/2021 Pharmacy [facility] [place], [facility] [address] [facility] [place] [phone] Pharmacist, [facility] [address] [facility] [place] [address] Type 2 diabetes mellitus with diabetic neuropathy, with long-term current use of insulin ([facility])* Allergies Active Allergy Reactions Severity Noted [...] 5 Tab 6 08/24/2017 Active Glucose Blood (Sloning BioTechnologyTOUCH VERABT Molecular Imaging) STRP Use up to 4 times a day E11.9 300 Strip 3 08/24/2017 Active Blood Glucose Monitoring Suppl (Sloning BioTechnologyTOSEDLine VERABT Molecular Imaging) w/Device KITIndications:Type 2 diabetes mellitus with hemoglobin A1c goal of 7.0%-8.0% ([facility]) Use as directed. Recommend check glucose [...] 40 g 1 07/05/2021 Active ReliOn Pen [place] 32G X 4 MM (Insulin Pen Needle)Indications:T ype 2 diabetes mellitus with polyneuropathy (HCC) Use as directed with flexpen 100 Each 6 09/05/2021 Active Insulin Syringe-Needle U-100 30G X 5/16" 0.3 MLIndications:Type 2 diabetes mellitus with polyneuropathy (HCC),Type 2 diabetes mellitus with hemoglobin A1c goal of less than 8.0% ([facility]) Use up to 4 x a [...] current use of insulin ([facility]) Inject under the skin 2 times a [...] 11 12/27/2021 Active FreeStyle Rose Marie 2 [place] Device Test blood sugars four times daily [...] as of this encounter Progress Notes * Dennis Davis, [facility] - 12/27/2021 2:39 PM EST [facility] [...] aware of cost estimates. Will submit to [employer]. Continuous Glucose Monitoring (CGM) Referral Device: US Biologicyle Rose Marie 2 Patient is currently taking [...] HEMOGLOBIN-OUTSIDE LAB 13.3 (A) 11/08/2021 12:00 AM Dennis Davis RPh [facility] 12/27/2021,2:50 PM documented in this encounter Miscellaneous Notes * Addendum Note - Dennis Davis RPh - 12/27/2021 3:46 PM EST Addended by: DENNIS DAVIS on: 12/27/2021 03:46 PM Modules accepted: Orders documented in this encounter Plan of Treatment Upcoming Encounters Date Type Specialty Care Team Description 12/31/2021 Home Visit [facility] Elda Ponce, RN 132 [facility] [place] [address] 01/06/2022 Office Visit Pharmacy [facility] Erica [address] [place] [address] 01/09/2022 Home Visit [facility] [place], Jane Chandler PA-C [address] [facility] [address] 02/26/2022 Office Visit Podiatry Kylie Burroughs, REM[facility] [address] [facility] [place] [id number] 03/12/2022 Office Visit Family Medicine James Maria, [address] [place] [address] 06/02/2022 Office Visit Cardiology Del Díaz Jr., [address] [place] [address] 06/04/2022 Office Visit Family Medicine James Maria, [address] [place] [address] Scheduled Orders Name Type Priority Associated Diagnoses Orde r Schedule CBC WITH WBC DIFFERENTIAL Lab Routine Type 2 diabetes mellitus with diabetic neuropathy, with long-term current use of insulin (HCC) Expected: 12/27/2021 (Approximate), Expires: 01/24/2022 Scheduled Procedures Name Priority Associated Diagnoses Date/Ti [...] Documents on File Type Date Recorded Patient Eye Specialist Expl 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 Directive Advanced Directive Advanced Directive Care Teams Water Resource Manager Relationship Specialty Start Date End Date James Maria, [address] [place] [address] PCP - General Family Medicine 06/07/18 documented as of this encounter
--- OUTSIDE RECORDS SUMMARY | 2023-07-31 20:24 | External Medical Summary | Summary of Care ---
Author Name Unknown Organization [place] [address] Care Team Providers Care Screen Roller Name Role Phone James Maria Primary Care Provider Reason for Visit * Reason Comments Appointment Encounter Details Date Type Department Care Team Description 12/19/2021 Pharmacy Pharmacy, [facility] [address] [facility] [place] [address] [facility] [address] [facility] [place] [address] Type 2 diabetes mellitus with hemoglobin A1c goal of less than 8.0% ([facility])* Allergies Active Allergy Reactions Severity Noted Date Comments Lisinopril Edema face/lips/tongue High 04/05/2018 documented as of this encounter (statuses as of 12/19/2021) Medications Medication Sig Dispensed Refills Start Date End Date Status Blood Glucose Monitoring Suppl (FFWDTOUCH ULTRA SYSTEM) W/DEVICE KIT Use as directed 4 times a day as needed for Hyperglycemia (high sugar) or Hypoglycemia (low sugar). Use up to four times a day as directed 1 Kit 0 01/29/2016 Active 2Web TechnologiesUCH ULTRA BLUE STRP USE TO CHECK GLUCOSE 4 TIMES DAILY 100 Strip 0 11/13/2016 Active FFWDTOUCH DELICA LANCETS 33G MISC USE ONE TO CHECK GLUCOSE 4 TIMES DAILY 100 Each 0 11/13/2016 Active Sildenafil Citrate (VIAGRA) 50 MG TabletIndications:Im potence of organic origin Take 1 Tab by mouth as needed for Erectile Dysfunction. 5 Tab 6 08/24/2017 Active Glucose Blood (FFWDTOUCH VERIO) STRP Use up to 4 times a day E11.9 300 Strip 3 08/24/2017 Active Blood Glucose Monitoring Suppl (Well) w/Device KITIndications:Type 2 diabetes mellitus with hemoglobin A1c goal of 7.0%-8.0% ([facility]) Use as directed. Recommend check glucose [...] 40 g 1 07/05/2021 Active ReliOn Pen [place] 32G X 4 MM (Insulin Pen Needle)Indications:T [...] Tab by mouth daily. 90 Tab 1 09/05/2021 Active Aspirin EC 81 MG Oral Tablet Delayed ReleaseIndications:T ype 2 diabetes mellitus with diabetic neuropathy, with long-term current use of insulin (HCC) Take 1 Tab by mouth daily. 100 Tab 1 09/05/2021 Active Additional Information Patient not taking. Reported on 12/06/2021 Tamsulosin HCl 0.4 MG Oral Capsule (Flomax) Take 1 Cap by mouth daily. 90 Cap 0 09/05/2021 Active Eliquis 5 MG Oral TabletIndications:Ch ronic atrial fibrillation (HCC) Take 1 Tablet by mouth 2 times a day. 180 Tablet 3 11/20/2021 Active metFORMIN HCl ER 500 MG Oral Tablet Extended Release 24 Hour (Glucophage XR)Indications:Type 2 diabetes mellitus with hemoglobin A1c goal of less than 8.0% (HCC) Take by mouth 2 Tablets in the morning. 180 Tablet 3 12/05/2021 Active Metoprolol Tartrate 25 MG Oral Tablet (Lopressor) Take by mouth 1 Tablet in the morning AND 1 Tablet before bedtime. 180 Tablet 3 12/05/2021 Active Furosemide 40 MG Oral Tablet (Lasix)Indications:C hronic atrial fibrillation (HCC) Take by mouth 1 Tablet in the morning. 90 Tablet 3 12/09/2021 Active Insulin NPH Isophane & Regular (70-30) 100 UNIT/ML Subcutaneous Suspension (NovoLIN 70/30)Indications:Ty pe 2 diabetes mellitus with hemoglobin A1c goal of less than 8.0% (HCC) Inject under the skin 2 times a day. 20 units before breakfast and 15 units before supper. 30 mL 5 12/09/2021 Active documented as of this encounter (statuses as of 12/19/2021) Active Problems Problem Noted Date BPH with [...] as of this encounter (statuses as of 12/19/2021) Resolved Problems Problem Noted Date Resolved Date [...] as of this encounter (statuses as of 12/19/2021) Immunizations Name Administration Dates Next Due COVID-19 [...] as of this encounter Progress Notes * MICHEL Munoz - 12/19/2021 10:55 AM EST Patient Phone Numbers Left message on patients answering machine to schedule [facility] appointment for Diabetic management. [facility] message sent --no Letter sent---no. Clinic will follow up again in 4 week(s). [Attempt # 2] MICHEL Munoz 12/19/2021, 10:55 AM documented in this encounter Plan of Treatment Upcoming Encounters Date Type Specialty Care Team Description 12/25/2021 [facility]medicine [facility] Wendy Cisneros CRNP [address] [place] [address] Sara Recinos, [facility] Ophthalmic Medical Assistant [address] [place] [address] 12/26/2021 Office Visit Cardiology Del Díaz Jr., DO [address] [place] [address] 12/31/2021 Home Visit [facility] Elda Ponce RN [address] [place] [address] 01/16/2022 Pharmacy Pharmacy [facility] [address] [place] [address] 02/26/2022 Office Visit Podiatry Kylie Burroughs, [address] [address] 03/12/2022 Office Visit Family Medicine James Maria DO [address] [place] [address] 06/02/2022 Office Visit Cardiology Del Díaz Jr., [address] [place] [address] 06/04/2022 Office Visit Family James Rooney, [address] [place] [address] Scheduled Procedures Name Priority Associated Diagnoses Date/Ti [...] Documents on File Type Date Recorded Patient Cloud Administrator Expl 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 Directive Advanced Directive Advanced Directive Care Teams Screen Roller Relationship Specialty Start Date End Date James Maria DO 132 [facility] [place] [address] PCP - General Family Medicine 06/07/18 documented as of this encounter
--- OUTSIDE RECORDS SUMMARY | 2023-07-31 20:24 | External Medical Summary | Summary of Care ---
Author Name Unknown Organization [facility] Address [place] [address] Care Team Providers Care Retail Cashier Associate Name Role Phone James Maria DO Primary Care Provider Reason for Visit * Reason Onset Date Comments Medication Question 12/20/2021 Encounter Details Date Type Department Care Team Description 12/20/2021 Telephone Family Practice [facility] [address] [place] [address] James Maria DO [address] [place] [address] Medication Question Allergies Active Allergy Reactions Severity Noted Date Comments Lisinopril Edema face/lips/tongue High 04/05/2018 documented as of this encounter (statuses as of 12/20/2021) Medications Medication Sig Dispensed Refills Start Date End Date Status Blood Glucose Monitoring Suppl (Campus SentinelTOUCH ULTRA SYSTEM) W/DEVICE KIT Use as directed [...] 5 Tab 6 08/24/2017 Active Glucose Blood (Campus SentinelTOUCH VERE-Duction) STRP Use up to 4 times a day E11.9 300 Strip 3 08/24/2017 Active Blood Glucose Monitoring Suppl (Helios) w/Device KITIndications:Type 2 diabetes mellitus with hemoglobin [...] 40 g 1 07/05/2021 Active ReliOn Pen [place] 32G X 4 MM (Insulin Pen Needle)Indications:T [...] as of this encounter (statuses as of 12/20/2021) Active Problems Problem Noted Date BPH with [...] as of this encounter (statuses as of 12/20/2021) Resolved Problems Problem Noted Date Resolved Date [...] as of this encounter (statuses as of 12/20/2021) Immunizations Name Administration Dates Next Due COVID-19 [...] encounter Miscellaneous Notes * Telephone Encounter - Sujit Yañez MD - 12/20/2021 3:09 PM EST Send to [facility] at home we don't seem to be intimately involved in his acute care for this problem. I am covering for Dr. Maria who is out of the office today and am unfamiliar with what is going on. * Telephone Encounter - Josephine Edwards LPN - 12/20/2021 10:22 AM EST Called and spoke with pharmacy. Pt was prescribed Zyvox when discharged from [facility] - no notes about needing another script. Pharmacy states that pt told them that a provider told the pt he needed another dose - please advise Pharmacy was going to try to get a hold of pt in the meantime * Telephone Encounter - JOHN Haywood - 12/20/2021 9:15 AM EST Pharmacist from [facility] calling to ask if patient should be receiving a Rx for Zyvox. Patient was in the pharmacy looking for it this morning. I did not see any notes pertaining to it. If Rx is being sent please route to [facility] Please contact [place] to advise at . Thank you, Rubia Godwin [facility] Manager Surgery II [facility] 12/20/2021,9:16 AM documented in this encounter Plan of Treatment Upcoming Encounters Date Type Specialty Care Team Description 12/25/2021 Telemedicine [facility] Wendy Cisneros CRNP [address] [address] [address] Sara Recinos, [facility] Ironer Hand [address] [place] [address] 12/26/2021 Office Visit Cardiology Arjun Nielsen, Del Gann DO [address] [place] [address] 12/31/2021 Home Visit [facility] Elda Ponce RN [address] [place] [address] 01/16/2022 Pharmacy Pharmacy [facility] Erica [address] [place] [address] 02/26/2022 Office Visit Podiatry Kylie Burroughs, DPMarga [address] [place] [address] 03/12/2022 Office Visit Family Medicine James Maria, DO [address] [place] [address] 06/02/2022 Office Visit Cardiology Del Díaz Jr., [address] [place] [address] 06/04/2022 Office Visit Family Medicine James Maria DO [address] [place] [address] Scheduled Procedures Name Priority Associated Diagnoses Date/Ti [...] on File Type Date Recorded Patient Manager Supplier Expl anation Advanced Directive service a hi [...] Directive Advanced Directive Advanced Directive Care Teams Retail Cashier Associate Relationship Specialty Start Date End Date James Maria DO 132 [facility] [place] [address] PCP - General Family Medicine 06/07/18 documented as of this encounter
--- OUTSIDE RECORDS SUMMARY | 2023-07-31 20:24 | External Medical Summary | Summary of Care ---
Author Name Unknown Organization [facility] Address [place] [address] Care Team Providers Care Social Welfare Administrator Name Role Phone James Maria Primary Care Provider Reason for Visit * Reason Onset Date Comments Referral 12/05/2021 Encounter Details Date Type Department Care Team Description 12/05/2021 Telephone Pharmacy, [facility] 132 [facility] [place] [address] [facility] 132 [facility] [place] [address] Referral Allergies Active Allergy Reactions Severity Noted [...] 3 08/24/2017 Active Blood Glucose Monitoring Suppl ([employer]) w/Device KITIndications:Type 2 diabetes mellitus with hemoglobin [...] 40 g 1 07/05/2021 Active ReliOn [place] 32G X 4 MM (Insulin Pen Needle)Indications:T ype 2 diabetes mellitus with polyneuropathy ([facility]) Use as directed with flexpen 100 Each 6 09/05/2021 Active Insulin Syringe-Needle U-100 30G X 5/16" 0.3 MLIndications:Type 2 diabetes mellitus with polyneuropathy ([facility]),Type 2 diabetes mellitus with hemoglobin [...] of insulin ([facility]) Take 1 Tab by mouth daily. 100 [...] less than 8.0% ([facility]) Take by mouth 2 Tablets in the morning. 180 Tablet 3 12/05/2021 Active Metoprolol Tartrate 25 MG Oral Tablet (Lopressor) Take by mouth 1 Tablet in the morning AND 1 Tablet before bedtime. 180 Tablet 3 12/05/2021 Active documented as of this encounter (statuses [...] Miscellaneous Notes * Telephone Encounter - MICHEL Vega - 12/05/2021 4:08 PM EST Patient Phone Numbers Left message on patients answering machine to schedule [facility] appointment for Diabetes management. Clinic will follow up again in 2 week(s). [Attempt # 1] MICHEL Vega 12/05/2021, 4:08 PM * Telephone Encounter - Samina Blunt RP - 12/05/2021 9:53 AM EST Referral reviewed and is appropriate. Please schedule. Initial appt length: 40 min Appointment type indicated: In Person Preferred Clinic for Appointment: [facility] Patient referred to [facility] clinic for diabetes on behalf of Dr. Maria. Referral reviewed and relevant pre-visit information listed below: DM: Relevant history obtained from referral: Target Hgb A1c: <8.0% Hemoglobin A1c Results: No components found for: [id number] Current DM Medications: Insulin NPH 70/30 30 units before breakfast and 15 units before dinner Metformin ER 500 mg 2 tabs AM Current MARYSOL/ARB therapy: NO Serum creatinine: 1.32 mg/dL 11/08/21 0000 Estimated creatinine clearance: 49.2 mL/min Current statin therapy: YES atorvastatin 40 mg daily Follow-up as scheduled. Samina Blunt RPh 12/05/2021, 9:53 AM * Telephone Encounter - MICHEL Munoz - 12/05/2021 9:18 AM EST Pharmacist Medication Therapy Management: Minimum frequency patient should be seen in person for medication management: as appropriate per clinical condition and patient status By my signature, I understand that my patient Selvin Sebastian will have his medication therapy managed by the [facility] Medication Therapy Disease Management Clinic ([facility]) per established policies, procedures, and protocols. I also certify that this referral may serve as an initiation of service for the management of drug therapy in the above noted patient. [facility] providers will be responsible for scheduling patient visits, obtaining appropriate laboratory studies, and adjusting medication management therapy per patient's need, in addition to those roles spelled out in the clinic policy, procedures, and drug management protocols. I understand that the service provided by the [facility] Clinic is voluntary and have informed patient that they can refuse the service at their discretion. I am aware that the [facility] Clinic will provide me with a copy of the patient encounter via my [employer]. I authorize the [facility] Clinic to carry out these activities on my behalf. I consider this program to be a necessary part of the patient's medical care. James Maria, DO Order Questions Question Answer Referral Priority Within 3 days (urgent) Department: Primary Care Reason for Referral: DM Target A1c: < 8 documented in this encounter Plan of Treatment Upcoming Encounters Date Type Specialty Care Team Description 12/25/2021 Telemedicine [facility] [place] Wendy Cisneros CRNP 132 [facility] [place] [address] Sara Recinos, Community Health Offal Trimmer [address] [place] [address] 12/26/2021 Office Visit Cardiology Del [facility] [place] [address] 12/31/2021 Home Visit [facility] Elda Ponce, RN [address] [place] [address] 01/16/2022 Pharmacy Pharmacy [facility] Erica [address] [place] [address] 02/26/2022 Office Visit Podiatry Kylie Burroughs, REMEDIOS [address] [place], [place] [address] [address] 03/12/2022 Office Visit Family Medicine James Maria DO [address] [place] [address] 06/02/2022 Office Visit Cardiology Del [facility] [place] [address] 06/04/2022 Office Visit Family Medicine James Maria DO [address] [place] [address] Scheduled Procedures Name Priority Associated Diagnoses Date/Ti [...] on File Type Date Recorded Patient Regional Operations Director Expl 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 Directive Advanced Directive Advanced Directive Care Teams Social Welfare Administrator Relationship Specialty Start Date End Date James Maria DO [address] [place] [address] PCP - General Family Medicine 06/07/18 documented as of this encounter
--- OUTSIDE RECORDS SUMMARY | 2023-07-31 20:24 | External Medical Summary | Summary of Care ---
Author Name Unknown Organization [facility] Address [place] [address] Care Team Providers Care Mysql Database Administrator Name Role Phone James Maria DO Primary Care Provider Reason for Visit * Reason Onset Date Comments Medication Question 12/20/2021 Encounter Details Date Type Department Care Team Description 12/20/2021 Telephone Family Practice [facility] [address] [place] [address] James Maria DO [address] [place] [address] Medication Question Allergies Active Allergy Reactions Severity Noted Date Comments Lisinopril Edema face/lips/tongue High 04/05/2018 documented as of this encounter (statuses as of 12/20/2021) Medications Medication Sig Dispensed Refills Start Date End Date Status Blood Glucose Monitoring Suppl (WideAngle TechnologiesTOUCH ULTRA SYSTEM) W/DEVICE KIT Use as directed [...] 5 Tab 6 08/24/2017 Active Glucose Blood (WideAngle TechnologiesTOUCH VERGood Travel Software) STRP Use up to 4 times a day E11.9 300 Strip 3 08/24/2017 Active Blood Glucose Monitoring Suppl (Hachimenroppi) w/Device KITIndications:Type 2 diabetes mellitus with hemoglobin A1c goal of 7.0%-8.0% ([facility]) Use as directed. Recommend check [...] 40 g 1 07/05/2021 Active ReliOn Pen [place] 32G X 4 MM (Insulin Pen Needle)Indications:T ype 2 diabetes mellitus with polyneuropathy ([facility]) Use as directed with flexpen 100 Each 6 09/05/2021 Active Insulin Syringe-Needle U-100 30G X 5/16" 0.3 MLIndications:Type 2 diabetes mellitus with polyneuropathy ([facility]),Type 2 diabetes mellitus with hemoglobin A1c goal of less than 8.0% ([facility]) Use up to 4 x [...] encounter Miscellaneous Notes * Telephone Encounter - Rubia Godwin reel stripper - 12/20/2021 9:15 AM EST Pharmacist from [facility] calling to ask if patient should be receiving a Rx for Zyvox. Patient was in the pharmacy looking for it this morning. I did not see any notes pertaining to it. If Rx is being sent please route to [facility] [address] [place] [address] MYRNA SANTILLAN Please contact Selvin to advise at . Thank you, Rubia Godwin CPhT Online Marketer II [facility] 12/20/2021,9:16 AM documented in this encounter Plan of Treatment Upcoming Encounters Date Type Specialty Care Team Description 12/25/2021 Telemedicine [facility] Wendy Cisneros CRNP [address] [place] [address] Sara Recinos, Community Health Area Director [address] [place] [address] 12/26/2021 Office Visit Cardiology Del D[facility]az Jr[facility] [address] [place] [address] 12/31/2021 Home Visit [facility] Elda Ponce RN [address] [place] [address] 01/16/2022 Pharmacy Pharmacy [facility] [address] [place] [address] 02/26/2022 Office Visit Podiatry Kylie Burroughs DPM [address] [place] [address] [place] [address] 03/12/2022 Office Visit Family Medicine James Maria, [address] [place] [address] 06/02/2022 Office Visit Cardiology Del D[facility]az Jr[facility] [address] [place] [address] 06/04/2022 Office Visit Family Medicine James Maria, 132 [place] [address] Scheduled Procedures Name Priority Associated Diagnoses Date/Ti [...] Documents on File Type Date Recorded Patient Seat Trimmer Expl anation Advanced Directive service a hi [...] Directive Advanced Directive Advanced Directive Care Teams Mysql Database Administrator Relationship Specialty Start Date End Date James Maria DO 132 [facility] [place] [address] PCP - General Family Medicine 06/07/18 documented as of this encounter
--- OUTSIDE RECORDS SUMMARY | 2023-07-31 20:24 | External Medical Summary | Summary of Care ---
Author Name Unknown Organization [facility] Address [place] [address] Care Team Providers Care Shoes Hand Sewer Name Role Phone James Maria DO Primary Care Provider Reason for Visit * Reason Onset Date Comments Medication Question 12/20/2021 Encounter Details Date Type Department Care Team Description 12/20/[address] [facility] [address] [place] [address] James Maria DO [address] [place] [address] Medication Question Allergies Active Allergy Reactions Severity [...] 5 Tab 6 7 Active Glucose Blood (ClearRiskTOUCH VERIO) STRP Use up to 4 times a day E11.9 300 Strip 3 7 Active Blood Glucose Monitoring Suppl (ClearRiskTOAgilOne) w/Device KITIndications:Type 2 diabetes mellitus with hemoglobin [...] 40 g 1 1 Active ReliOn [place] 32G X 4 MM (Insulin Pen Needle)Indications: [...] with long-term current use of insulin ([facility]) Take 1 Tab by mouth daily. 100 Tab 1 1 Active Additional Information Patient not taking. Reported on 12/06/2021 Atorvastatin Calcium 40 MG Oral Tablet (Lipitor) [...] * Telephone Encounter - BARTOLO Bentley - 12/25/2021 2:31 PM EST I was unable to complete video visit d/t poor can maker. Unable to evaluate his legs. Elda--you are seeing him tomorrow to evaluate his legs. See note below. Thanks! * Telephone Encounter - Rica Taylor RN - 12/23/2021 9:39 AM EST Per Hospital d/c summary, pt was prescribed 28 doses of Zyvox and to be re- evaluated by provider after discharge. Wendy - you are seeing patient this week. Can you please re-evaluate his legs and prescribe abx if you feel necessary? Last I was there he has some scabbing on both LE, but they were not with increased redness or warmth. Thank you. * Telephone Encounter - Sujit Yañez MD - 12/20/2021 3:09 PM EST Send to [facility] at home we don't seem to be intimately involved in his acute care for this problem. I am covering for Dr. Maria who is out of the office today and am unfamiliar with what is going on. * Telephone Encounter - Josephine Edwards LPN - 12/20/2021 10:22 AM EST Called and spoke with pharmacy. Pt was prescribed Zyvox when discharged from [facility] - no notes about needing another script. Pharmacy states that pt told them that a provider told the pt he needed another dose - please advise Pharmacy was going to try to get a hold of pt in the meantime * Telephone Encounter - JOHN Haywood Tech - 12/20/2021 9:15 AM EST Pharmacist from [facility] calling to ask if patient should be receiving a Rx for Zyvox. Patient was in the pharmacy looking for it this morning. I did not see any notes pertaining to it. If Rx is being sent please route to [facility] [address] [place] [address] MYRNA SANTILLAN Please contact Selvin to advise at . Thank you, Rubia Godwin [facility] Farm Machine Tender II [facility] 12/20/2021,9:16 AM documented in this encounter Plan of Treatment Upcoming Encounters Date Type Specialty Care Team Description 12/26/2021 Office Visit Cardiology Del D[facility] Jr[facility] [address] [place] [address] 12/27/2021 Home Visit [facility] Elda Ponce RN [address] [place] [address] 12/31/2021 Home Visit [facility] Elda Ponce RN [address] [place] [address] 01/06/2022 Office Visit Pharmacy [facility] Erica [address] [place] [address] 02/26/2022 Office Visit Podiatry Kylie Burroughs, [address] [place] [address] 03/12/2022 Office Visit Family Medicine James Maria DO [address] [place] [address] 06/02/2022 Office Visit Cardiology Del Díaz Jr., DO [address] [place] [address] 06/04/2022 Office Visit Family Medicine James Maria DO 132 [facility] [place] [address] Scheduled Procedures Name Priority Associated Diagnoses Date/Ti [...] Documents on File Type Date Recorded 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
--- OUTSIDE RECORDS SUMMARY | 2023-07-31 20:24 | External Medical Summary | Summary of Care ---
Author Name Unknown Organization [facility] Address [place] [address] Care Team Providers Care Operational Risk Analyst Name Role Phone James Maria Primary Care Provider Reason for Visit * Reason Comments [facility]: Maintenance Encounter Details Date Type Department Care Team Description 12/18/2021 Home Visit [facility], [facility] [address] [place] [address] Rica Taylor, RN 132 [facility] [place] [address] Allergies Active Allergy Reactions Severity Noted Date Comments Lisinopril Edema face/lips/tongue High 04/05/2018 documented as of this encounter (statuses as of 12/18/2021) Medications Medication Sig Dispensed Refills Start Date [...] 5 Tab 6 08/24/2017 Active Glucose Blood (Prescription Corporation of AmericaTODapper [email or web address]) STRP Use up to 4 times a day E11.9 300 Strip 3 08/24/2017 Active Blood Glucose Monitoring Suppl (Plurality) w/Device KITIndications:Type 2 diabetes mellitus with hemoglobin A1c goal of 7.0%-8.0% ([facility]) Use as directed. Recommend check [...] 40 g 1 07/05/2021 Active ReliOn [place] 32G X 4 MM (Insulin Pen Needle)Indications:T [...] as of this encounter (statuses as of 12/18/2021) Active Problems Problem Noted Date BPH with [...] as of this encounter (statuses as of 12/18/2021) Resolved Problems Problem Noted Date Resolved Date [...] as of this encounter (statuses as of 12/18/2021) Immunizations Name Administration Dates Next Due COVID-19 [...] Sign Reading Time Taken Comments Blood Pressure 122/62 12/18/2021 11:00 AM EST Pulse 60 12/18/2021 11:00 AM EST Temperature 36.1 C (97 F) 12/18/2021 11:00 AM EST Respiratory Rate 18 12/18/2021 11:00 AM EST Oxygen Saturation 97% 12/18/2021 11:00 AM EST Inhaled Oxygen Concentration - - Weight 86.6 kg (191 lb) 12/18/2021 11:00 AM EST Height - - Body Mass Index 30.83 12/05/2021 8:52 AM EST documented in this encounter Progress Notes * Rica Taylor RN - 12/18/2021 7:57 AM EST [facility] Banking Teacher Visit Date: 12/18/2021 Time: 10:57 AM Name: Selvin Sebastian : 1945 Current Concerns: Pt seen for KINZA #4 Hospitalized at [facility] 12/01 - 12/03 for Bacteremia Finished Keflex for cellulitis of RLE Pt continues to check blood sugars 3-6x a day They have been ranging 62-194 for the past week He did have one extreme high of 428 on 12/10 Has MTM appt tomorrow but it is a phone call and pt has hard time with these d/t [place] - msg sent to [facility] Samina Blunt to get changed to a visit Received Lasix and is taking as ordred Pt continues to have edema of BLE - states he does not elevate legs very often He did get compression socks but did not even open them He states he will start wearing them. He has two scabs on RLE quintana from his cellulitis - no s/s of infection now Assisted pt to get compression socks on during visit Advised to wear every day - on in am, off in pm Advised to elevate LE as much as possible Pt reports he does not weigh himself every day but he did gain 20 lbs in past few month His edema is above baseline since home from hospital Physical Exam: BP 122/62 | Pulse 60 | Temp 36.1 C (97 F) | Resp 18 | Wt 86.6 kg (191 lb) | SpO2 97% | BMI 30.83 kg/m | BSA 2.01 m Pain 0 Physical Exam Constitutional: General: He is not in acute distress. Cardiovascular: Rate and Rhythm: Rhythm irregular. Pulses: Normal pulses. Pulmonary: Effort: Pulmonary effort is normal. Breath [...] Systems Constitutional: Negative. HENT: Positive for hearing loss. Eyes: Negative. Respiratory: Positive for shortness of breath (PIERCE - at baseline). Cardiovascular: Positive for leg swelling. Gastrointestinal: Negative. Endocrine: Negative. Genitourinary: Negative. Musculoskeletal: Positive for arthralgias. Neurological: Negative. Psychiatric/Behavioral: Negative. Medication Reconciliation: (See medication list) Does patient take medications as ordered: Yes Patient Well Being: PHQ2/9: No questionnaires available. No change in living situation. Denies falls Advanced Care Planning: No documentation, none on file. Patient's Goals of Care: 1. Return home 2. Be healthy Reinforcement/Education: Educated on home safety: Create a [...] exercises that will be right for you. DIABETES: -Blood sugar testing schedule: Twice a [...] CCD diet Home Interventions Provided: Home Intervention: Other; Evaluation Consulted PCP/Specialist Reinforced current Plan of Care, including self-management and medication regimen Patient's 'Red Flags': 1. SOB 2. Blood sugars <80 or >250 3. Increased edema Patient Needs to Remember: Call [facility] at with any new or worsening health concerns or problems, red flag symptoms. Referrals Needed: Other none Follow Up: Is there cellular connectivity/connectivity in the home? Yes Does the patient have internet in the home? No Patient encouraged to call the intake phone number for all urgent but not emergent issues. Is the patient new to [employer] [facility] within the last 30 days? Yes, Is this a Transitions of Care visit? Yes, this is the 2nd visit or later, Yes cellular connectivity. Was their Readmission Risk Score less than 18%? Yes Does the patient have any active signs of an exacerbation? No Has the patient had any ED visits since being discharged? No, Please forward to [employer] for telehealth scheduling, and indicate appropriate week of Transition of Care. Provider is in agreement with Plan of Care: Yes Scheduled to follow up with patient in one week with provider and the following week with RNCM. Rica Taylor RN 12/18/2021 10:57 AM documented in this encounter Plan of Treatment Upcoming Encounters Date Type Specialty Care Team Description 12/19/2021 Pharmacy Pharmacy [facility] Erica [address] [place] [address] 12/25/2021 Telemedicine [facility] Wendy Cisneros CRNP [address] [place] [address] Sara Recinos, Community Health Regional Sales Director [address] [place] [address] 12/26/2021 Office Visit Cardiology Del Díaz Jr., [address] [place] [address] 12/31/2021 Home Visit [facility] Elda Ponce RN [address] [place] [address] 02/26/2022 Office Visit Podiatry Kylie Burroughs DPM [address] [place] [address] 03/12/2022 Office Visit Family Medicine James Maria DO [address] [place] [address] 06/02/2022 Office Visit Cardiology Del D[facility]az Jr[address] [place] [address] 06/04/2022 Office Visit Family Medicine James Maria DO [address] [place] [address] Scheduled Procedures Name Priority Associated Diagnoses Date/Ti [...] Documents on File Type Date Recorded Patient Quality Management Coordinator Expl 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 Directive Advanced Directive Advanced Directive Care Teams Operational Risk Analyst Relationship Specialty Start Date End Date James Maria DO 132 [facility] [place] [address] PCP - General Family Medicine 06/07/18 documented as of this encounter
--- OUTSIDE RECORDS SUMMARY | 2023-07-31 20:24 | External Medical Summary | Summary of Care ---
Author Name Unknown Organization [facility] Address [place] [address] Care Team Providers Care Content Director Name Role Phone James Maria DO Primary Care Provider Reason for Visit * Reason Onset Date Comments Medication Question 12/20/2021 Encounter Details Date Type Department Care Team Description 12/20/2021 Telephone Family Practice [facility] [address] [place] [address] James Maria DO [address] [place] [address] Medication Question Allergies Active Allergy Reactions Severity Noted Date Comments Lisinopril Edema face/lips/tongue High 04/05/2018 documented as of this encounter (statuses as of 12/20/2021) Medications Medication Sig Dispensed Refills Start Date End Date Status Blood Glucose Monitoring Suppl (JotSpotTOUCH ULTRA SYSTEM) W/DEVICE KIT Use as directed [...] 5 Tab 6 08/24/2017 Active Glucose Blood (JotSpotTOUCH VERMailana) STRP Use up to 4 times a day E11.9 300 Strip 3 08/24/2017 Active Blood Glucose Monitoring Suppl (Dilithium Networks) w/Device KITIndications:Type 2 diabetes mellitus with hemoglobin A1c goal of 7.0%-8.0% ([facility]) Use as directed. Recommend check glucose [...] 40 g 1 07/05/2021 Active ReliOn Pen [place] 32G X 4 MM (Insulin Pen [...] encounter Miscellaneous Notes * Telephone Encounter - Josephine Edwards LPN - 12/20/2021 10:22 AM EST Called and spoke with pharmacy. Pt was prescribed Zyvox when discharged from [facility] - no notes about needing another script. Pharmacy states that pt told them that a provider told the pt he needed another dose - please advise Pharmacy was going to try to get a hold of pt in the meantime * Telephone Encounter - JOHN Haywood - 12/20/2021 9:15 AM EST Pharmacist from [facility] calling to ask if patient should be receiving a Rx for Zyvox. Patient was in the pharmacy looking for it this morning. I did not see any notes pertaining to it. If Rx is being sent please route to [facility] [address] [place] [address] [facility] Please contact Selvin to advise at . Thank you, Rubia Godwin [facility] Child Care Attendant [employer] [facility] 12/20/2021,9:16 AM documented in this encounter Plan of Treatment Upcoming Encounters Date Type Specialty Care Team Description 12/25/2021 Telemedicine [facility] Wendy Cisneros CRNP [address] [place] [address] Sara Recinos, Community Health Senior Attorney [address] [place] [address] 12/26/2021 Office Visit Cardiology Del Díaz Jr., DO [address] [address] 12/31/2021 Home Visit [facility] Elda Ponce RN [address] [place] [address] 01/16/2022 Pharmacy Pharmacy [facility] [address] [address] 02/26/2022 Office Visit Podiatry Kylie Burroughs DPM [address] [place] [address] [place] [address] 03/12/2022 Office Visit Family Medicine James Maria, DO [address] [place] [address] 06/02/2022 Office Visit Cardiology Del Díaz Jr., DO [address] [place] [address] 06/04/2022 Office Visit Family Medicine James Maria, DO [address] [place] [address] Scheduled Procedures Name Priority Associated Diagnoses Date/Ti [...] Documents on File Type Date Recorded 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
--- OUTSIDE RECORDS SUMMARY | 2023-07-31 20:24 | External Medical Summary | Summary of Care ---
Author Name Unknown Organization [facility] Address [place] [address] Care Team Providers Care Iron Installer Name Role Phone James Maria DO Primary Care Provider Reason for Visit * Reason Onset Date Comments Medication Question 12/20/2021 Encounter Details Date Type Department Care Team Description 12/20/2021 Telephone Family Practice [facility] [address] [place] [address] James Maria DO [address] [place] [address] Medication Question Allergies Active Allergy Reactions Severity Noted Date Comments Lisinopril Edema face/lips/tongue High 04/05/2018 documented as of this encounter (statuses as of 12/23/2021) Medications Medication Sig Dispensed Refills Start Date End Date Status Blood Glucose Monitoring Suppl (Co-WorkTOUCH ULTRA SYSTEM) W/DEVICE KIT Use as directed [...] 5 Tab 6 08/24/2017 Active Glucose Blood (Co-WorkTOUCH VERTechTol Imaging) STRP Use up to 4 times a day E11.9 300 Strip 3 08/24/2017 Active Blood Glucose Monitoring Suppl (Regeneca Worldwide) w/Device KITIndications:Type 2 diabetes mellitus with hemoglobin [...] 40 g 1 07/05/2021 Active ReliOn Pen [place] 32G X 4 MM (Insulin Pen Needle)Indications:T [...] as of this encounter (statuses as of 12/23/2021) Active Problems Problem Noted Date BPH with [...] as of this encounter (statuses as of 12/23/2021) Resolved Problems Problem Noted Date Resolved Date [...] as of this encounter (statuses as of 12/23/2021) Immunizations Name Administration Dates Next Due COVID-19 [...] encounter Miscellaneous Notes * Telephone Encounter - Rica Taylor RN [...] - 12/20/2021 3:09 PM EST Send to [facility] we don't seem to be intimately involved in his acute care for this problem. I am covering for Dr. Maria who is out of the office today and am unfamiliar with what is going on. * Telephone Encounter - Josephine Edwards LPN - 12/20/2021 10:22 AM EST Called and spoke with pharmacy. Pt was prescribed Zyvox when discharged from [facility] - no notes about needing another script. Pharmacy states that pt told them that a provider told the pt he needed another dose - please advise Pharmacy was going to try to get a hold of pt in the meantime * Telephone Encounter - JOHN Haywood - 12/20/2021 9:15 AM EST Pharmacist from [facility] calling to ask if patient should be receiving a Rx for Zyvox. Patient was in the pharmacy looking for it this morning. I did not see any notes pertaining to it. If Rx is being sent please route to [facility] [address] [place] [address] [facility] Please contact Selvin to advise at . Thank you, Rubia Godwin CPhT C D Reactor Operator II [facility] 12/20/2021,9:16 AM documented in this encounter Plan of Treatment Upcoming Encounters Date Type Specialty Care Team Description 12/25/2021 Telemedicine [facility] Wendy Cisneros, MEDICAL OBSERVER 132 [facility] [place] [address] Sara Recinos, Community Health Surface Water Technician [address] [place] [address] 12/26/2021 Office Visit Cardiology Del Díaz Jr., [address] [place] [address] 12/31/2021 Home Visit [facility] Edla Ponce, RN [address] [address] [address] 01/06/2022 Office Visit Pharmacy [facility] Erica [address] [place] [address] 02/26/2022 Office Visit Podiatry Kylie Burroughs, DPM [address] [place] [id number] 03/12/2022 Office Visit Family Medicine James Maria DO [address] [place] [address] 06/02/2022 Office Visit Cardiology Del Díaz Jr., [address] [place] [address] 06/04/2022 Office Visit Family Medicine James Maria DO [address] [address] Scheduled Procedures Name Priority Associated Diagnoses Date/Ti [...] Documents on File Type Date Recorded Patient Landcare Officer Expl anation Advanced Directive service a hi [...] Advanced Directive Advanced Directive Care Teams Iron Installer Relationship Specialty Start Date End Date James Maria DO [address] [address] PCP - General Family Medicine 06/07/18 documented as of this encounter
--- OUTSIDE RECORDS SUMMARY | 2023-07-31 20:24 | External Medical Summary | Summary of Care ---
Author Name Unknown Organization [facility] Address [place] [address] Care Team Providers Care Supervisor Grinding Name Role Phone James Maria DO Primary Care Provider Reason for Visit * Reason Onset Date Comments Medication Question 12/20/2021 Encounter Details Date Type Department Care Team Description 12/20/2021 Telephone Family Practice [facility] [address] [place] [address] James Maria DO [address] [place] [address] Medication Question Allergies Active Allergy Reactions Severity Noted Date Comments Lisinopril Edema face/lips/tongue High 04/05/2018 documented as of this encounter (statuses as of 12/20/2021) Medications Medication Sig Dispensed Refills Start Date End Date Status Blood Glucose Monitoring Suppl (SkillatonTOUCH ULTRA SYSTEM) W/DEVICE KIT Use as directed [...] 5 Tab 6 08/24/2017 Active Glucose Blood (SkillatonTOUCH VERHuckletree) STRP Use up to 4 times a day E11.9 300 Strip 3 08/24/2017 Active Blood Glucose Monitoring Suppl (LegalSherpa) w/Device KITIndications:Type 2 diabetes mellitus with hemoglobin A1c goal of 7.0%-8.0% ([facility]) Use as directed. Recommend check [...] 40 g 1 07/05/2021 Active ReliOn Pen [place] 32G X 4 MM (Insulin Pen Needle)Indications:T ype 2 diabetes mellitus with polyneuropathy (HCC) Use as directed with flexpen 100 Each 6 09/05/2021 Active Insulin Syringe-Needle U-100 30G X 5/16" 0.3 MLIndications:Type 2 diabetes mellitus with polyneuropathy (HCC),Type 2 diabetes mellitus with hemoglobin A1c goal of less than 8.0% ([facility]) Use up to 4 x [...] Pt was prescribed Zyvox when discharged from [facility] - no notes about needing another script. Pharmacy states that pt told them that a provider told the pt he needed another dose - please advise Pharmacy was going to try to get a hold of pt in the meantime * Telephone Encounter - JOHN Haywood - 12/20/2021 9:15 AM EST Pharmacist from [facility] calling to ask if patient should be receiving a Rx for Zyvox. Patient was in the pharmacy looking for it this morning. I did not see any notes pertaining to it. If Rx is being sent please route to [facility] [address] [place] [address] [facility] Please contact Selvin to advise at . Thank you, Rubia Godwin [facility] Cartridge Loader II [facility] 12/20/2021,9:16 AM documented in this encounter Plan of Treatment Upcoming Encounters Date Type Specialty Care Team Description 12/25/2021 Telemedicine [facility] Wendy Cisneros CRNP [address] [place] [address] Sara Recinos, Community Health Dry Cell Assembly Machine Tender [address] [place] [address] 12/26/2021 Office Visit Cardiology Del Díaz Jr., DO [address] [address] 12/31/2021 Home Visit [facility] Elda Ponce RN [address] [place] [address] 01/16/[address] [facility] [address] [address] 02/26/2022 Office Visit Podiatry Kylie Burroughs DPM [address] [place] [address] [place] [address] 03/12/2022 Office Visit Family Medicine James Maria, DO [address] [place] [address] 06/02/2022 Office Visit Cardiology Del Díaz Jr., DO [address] [place] [address] 06/04/2022 Office Visit Family Medicine James Maria, DO [address] [address] Scheduled Procedures Name Priority Associated Diagnoses Date/Ti [...] Documents on File Type Date Recorded Patient Touring Production Manager Expl 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 Directive Advanced Directive Advanced Directive Care Teams Supervisor Grinding Relationship Specialty Start Date End Date James Maria DO 132 [facility] [place] [address] PCP - General Family Medicine 06/07/18 documented as of this encounter
--- OUTSIDE RECORDS SUMMARY | 2023-07-31 20:24 | External Medical Summary | Summary of Care ---
Author Name Unknown Organization [facility] Address [place] [address] Care Team Providers Care Shower Attendant Name Role Phone aJmes Maria Primary Care Provider Reason for Visit * Reason Onset Date Comments [facility]: Maintenance 12/18/2021 Encounter Details Date Type Department Care Team Description 12/18/2021 Telephone [facility], [facility] 132 [facility] [place] [address] Rica Taylor, RN 132 [facility] [place] [address] [facility]: Maintenance Allergies Active Allergy [...] 5 Tab 6 08/24/2017 Active Glucose Blood (Escapism MediaTOUCH VERIO) STRP Use up to 4 times a day E11.9 300 Strip 3 08/24/2017 Active Blood Glucose Monitoring Suppl (Escapism MediaTOEntaire Global Companies VERIO) w/Device KITIndications:Type 2 diabetes mellitus with hemoglobin A1c goal of 7.0%-8.0% ([facility]) Use as directed. Recommend check glucose levels [...] 40 g 1 07/05/2021 Active ReliOn Pen [place] 32G X 4 MM (Insulin Pen Needle)Indications:T ype 2 diabetes mellitus with polyneuropathy (HCC) Use as directed with flexpen 100 Each 6 09/05/2021 Active Insulin Syringe-Needle U-100 30G X 5/16" 0.3 MLIndications:Type 2 diabetes mellitus with polyneuropathy (HCC),Type 2 diabetes mellitus with hemoglobin A1c goal of less than 8.0% ([facility]) Use up to 4 x a day [...] Telephone Encounter - Ceferino Davis RPh - 12/18/2021 4:38 PM EST Attempted to contact multiple times - no answer Ceferino Davis RPh [facility] 12/18/2021,4:39 PM * Telephone Encounter - Светлана Herr RPh - 12/18/2021 11:32 AM EST Thank you for notifying us- the phone call tomorrow is there to have one of the assistants try to contact patient to get scheduled- I will route to their pool to notify them of this. Thanks! Светлана Herr, PharmD Clinical Pharmacist Medication Therapy Disease Management 12/18/2021, 11:33 AM * Telephone Encounter - Rica Taylor RN - 12/18/2021 11:13 AM EST [facility] - Pt has appt with you tomorrow for diabetes management - appears to be a telephone call. Pt is very [place] and needs all instructions written down so in person would be more suitable for him. He has had some lows in the 60's in the past week, mostly in am. Advised to make sure he is having a snack before bed such as milk, peanut butter crackers, to keep sugar stable overnight. Also he was still taking insulin after sugar was low - he reports he did adjust it. I advised him to hold his insulin for sugar less than 70 - until otherwise instructed by [facility]. Please reach out to pt/ and get visit scheduled or be sure to reach out to to assist in phone calls - but again, in person visits would be most beneficial for this pt. Also, he is interested in [facility]usto if he qualifies. Thank you. documented in this encounter Plan of Treatment Upcoming Encounters Date Type Specialty Care Team Description 12/19/[address] [facility] Erica 132 [facility] [place] [address] 12/25/2021 Telemedicine [facility] Wendy Cisneros CRNP 132 [facility] [place] [address] Sara Recinos, Community Health Salesperson Men'S Hats [address] [place] [address] 12/26/2021 Office Visit Cardiology Del Díaz Jr., DO [address] [place] [address] 12/31/2021 Home Visit [facility] Elda Ponce, RN [address] [place] [address] 02/26/2022 Office Visit Podiatry Kylie Burroughs, DPM [address] [facility] [id number] 03/12/2022 Office Visit Family Medicine James Maria, DO [address] [place] [address] 06/02/2022 Office Visit Cardiology Del Díaz Jr., DO [address] [place] [address] 06/04/2022 Office Visit Family Medicine James Maria, [address] [place] [address] Scheduled Procedures Name Priority Associated Diagnoses Date/Ti [...] Documents on File Type Date Recorded Patient Beam Builder Expl anation Advanced Directive service a hi [...] Directive Advanced Directive Advanced Directive Care Teams Shower Attendant Relationship Specialty Start Date End Date James Maria DO [address] [place] [address] PCP - General Family Medicine 06/07/18 documented as of this encounter
--- OUTSIDE RECORDS SUMMARY | 2023-07-31 20:24 | External Medical Summary | Summary of Care ---
Author Name Unknown Organization [place] [address] Care Team Providers Care Scourer Name Role Phone James Maria Primary Care Provider Reason for Visit * Reason Onset Date Comments [facility]: Maintenance 12/25/2021 Encounter Details Date Type Department Care Team Description 12/25/2021 Telephone [facility], [facility] 132 [facility] [place] [address] Services, Scheduling [address] [place] [address] [facility]: Maintenance Allergies Active Allergy [...] 3 08/24/2017 Active Blood Glucose Monitoring Suppl (Tiipz.com) w/Device KITIndications:Type 2 diabetes mellitus with hemoglobin [...] 40 g 1 07/05/2021 Active ReliOn Pen [place] 32G X 4 MM (Insulin Pen Needle)Indications:T [...] dosing E11.9 3 Each 1 09/05/2021 Active Aspirin EC 81 MG Oral Tablet Delayed ReleaseIndications:T ype 2 diabetes mellitus with diabetic neuropathy, with long-term current use of insulin (HCC) Take 1 Tab by mouth daily. 100 Tab 1 09/05/2021 Active Additional Information Patient not taking. Reported on 12/06/2021 Atorvastatin Calcium 40 MG Oral Tablet (Lipitor)Indications [...] * Telephone Encounter - MICHEL Bonilla - 12/25/2021 1:24 PM EST LMOM for that RN is going to stop and recheck patients legs, patient may need a stronger antibiotic. Scheduled for am with Elda Ponce RN. MICHEL Bonilla documented in this encounter Plan of Treatment Upcoming Encounters Date Type Specialty Care Team Description 12/26/2021 Office Visit Cardiology Del Díaz Jr., [address] [place] [address] 12/27/2021 Home Visit [facility] Elda Ponce RN [address] [address] 12/31/2021 Home Visit [facility] Elda Ponce RN [address] [place] [address] 01/06/2022 Office Visit Pharmacy [facility] Erica [address] [address] 02/26/2022 Office Visit Podiatry Kylie Burroughs, [address] [place] [address] 03/12/2022 Office Visit Family Medicine James Maria DO [address] [place] [address] 06/02/2022 Office Visit Cardiology Del Díaz Jr., [address] [place] [address] 06/04/2022 Office Visit Family Medicine James Maria DO [address] [place] [address] Scheduled Procedures Name Priority Associated Diagnoses Date/Ti [...] Documents on File Type Date Recorded Patient Pay Station Collector Expl anation Advanced Directive service a hi [...] Directive Advanced Directive Advanced Directive Care Teams Scourer Relationship Specialty Start Date End Date James Maria DO 132 [facility] [place] [address] PCP - General Family Medicine 06/07/18 documented as of this encounter
--- OUTSIDE RECORDS SUMMARY | 2023-07-31 20:25 | External Medical Summary | Summary of Care ---
Author Name Unknown Organization [place] [address] Care Team Providers Care Occupational Health And Safety Adviser Name Role Phone Rylan Mariar Sophy Primary Care Provider Reason for Visit * Reason Onset Date Comments Appointment 12/02/2021 Encounter Details Date Type Department Care Team Description 12/02/2021 Telephone [facility], [facility] [address] [facility] [place] [address] Services, Scheduling [address] [place] [address] Appointment Allergies Active Allergy Reactions Severity Noted Date Comments Lisinopril Edema face/lips/tongue High 04/05/2018 documented as of this encounter (statuses as of 12/02/2021) Medications Medication Sig Dispensed Refills Start Date [...] 3 08/24/2017 Active Blood Glucose Monitoring Suppl (Dekko) w/Device KITIndications:Type 2 diabetes mellitus with hemoglobin [...] 40 g 1 07/05/2021 Active ReliOn Pen [place] 32G X 4 MM (Insulin Pen Needle)Indications:T ype 2 diabetes mellitus with polyneuropathy (HCC) Use as directed with flexpen 100 Each 6 09/05/2021 Active metFORMIN HCl 1000 MG Oral Tablet (Glucophage)Indicati ons:Type 2 diabetes mellitus with hemoglobin A1c goal of less than 7.0% (HCC) Take 1 Tab by mouth 2 times a day with morning and evening meals. 180 Tab 1 09/05/2021 Active Insulin Syringe-Needle U-100 30G X [...] mouth daily. 100 Tab 1 09/05/2021 Active Tamsulosin HCl 0.4 MG Oral Capsule (Flomax) Take 1 Cap by mouth daily. 90 Cap 0 09/05/2021 Active Insulin NPH Isophane & Regular (70-30) 100 UNIT/ML Subcutaneous Suspension (NovoLIN 70/30)Indications:Ty pe 2 diabetes mellitus with hemoglobin A1c goal of less than 8.0% (HCC) Inject under the skin 2 times a day. 50 units before breakfast and 25 units before supper. 30 mL 5 11/20/2021 Active Eliquis 5 MG Oral TabletIndications:Ch ronic atrial fibrillation (HCC) Take 1 Tablet by mouth 2 times a day. 180 Tablet 3 11/20/2021 Active Furosemide 40 MG Oral Tablet (Lasix)Indications:C hronic atrial fibrillation (HCC) Take 1 Tablet by mouth daily. 90 Tablet 3 11/20/2021 Active Metoprolol Tartrate 25 MG Oral Tablet (Lopressor) Take 25 mg by mouth 2 times a day. 0 11/16/2021 Active Cephalexin 500 MG Oral CapsuleIndications:C ellulitis of left lower extremity Take 1 Capsule by mouth 3 times a day for 10 days. 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 Wanted to cancel his appt for tomorrow. documented in this encounter Plan of Treatment Upcoming Encounters Date Type Specialty Care Team Description 12/06/2021 Home Visit [facility] Rica Taylor, RN [address] [address] 02/26/2022 Office Visit Podiatry Kylie Burroughs, DPM [address] [place] [address] 03/12/2022 Office Visit Family Medicine James Maria, DO [address] [place] [address] 06/02/2022 Office Visit Cardiology Del Díaz Jr., DO [address] [place] [address] Scheduled Procedures Name Priority Associated Diagnoses Date/Ti [...] 03/04/2022 03/04/2021, , 06/30/2016, Additional history exists Pneumococcal Vaccine: 65+ Years [...] Documents on File Type Date Recorded Patient Trap Operator Expl 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 Directive Advanced Directive Advanced Directive Care Teams Occupational Health And Safety Adviser Relationship Specialty Start Date End Date James Maria DO 132 [facility] [place] [address] PCP - General Family Medicine 06/07/18 documented as of this encounter
--- OUTSIDE RECORDS SUMMARY | 2023-07-31 20:25 | External Medical Summary | Summary of Care ---
Author Name Unknown Organization [facility] Address [place] [address] Care Team Providers Care Gypsum Calciner Name Role Phone James Maria DO Primary Care Provider Reason for Visit * Reason Onset Date Comments [facility]: Maintenance 12/03/2021 Encounter Details Date Type Department Care Team Description 12/03/2021 Telephone General Internal Medicine [facility] [place] [address] [place] [address] James Maria DO [address] [place] [address] [facility]: Maintenance Allergies Active Allergy Reactions Severity Noted Date Comments Lisinopril Edema face/lips/tongue High 04/05/2018 documented as of this encounter (statuses as of 12/03/2021) Medications Medication Sig Dispensed Refills Start Date [...] 5 Tab 6 08/24/2017 Active Glucose Blood (Rebellion PhotonicsTOUCH VERIO) STRP Use up to 4 times a day E11.9 300 Strip 3 08/24/2017 Active Blood Glucose Monitoring Suppl (Rebellion PhotonicsTOAlgorithmia VERIO) w/Device KITIndications:Type 2 diabetes mellitus with [...] 40 g 1 07/05/2021 Active ReliOn Pen [place] 32G X 4 MM (Insulin Pen Needle)Indications:T [...] 2 times a day. 0 11/16/2021 Active documented as of this encounter (statuses as of 12/03/2021) Active Problems Problem Noted Date BPH with [...] as of this encounter (statuses as of 12/03/2021) Resolved Problems Problem Noted Date Resolved Date [...] as of this encounter (statuses as of 12/03/2021) Immunizations Name Administration Dates Next Due COVID-19 [...] Telephone Encounter - Tawana Williamson LPN - 12/03/2021 2:11 PM EST Pt already scheduled with RNCM on 12/06 and PCP on 12/10 * Telephone Encounter - Priscilla Jim RN - 12/03/2021 2:05 PM EST Forward IB message to appointment scheduler and JOINT SUPERVISOR to set up KINZA's Message routed Priscilla Jim RN BSN [facility] RN * Telephone Encounter - Rani Knott RN - 12/03/2021 12:51 PM EST Pt is followed by [facility] will forward encounter. * Telephone Encounter - Bernardo Camejo RN - 12/03/2021 12:18 PM EST Patient being discharged to home from [facility]. It is noted that last admission, 11/08-11/16/21, the patient's NPH insulin was discontinued and patient was placed on Novolin 70/30. Patient had not made these changes upon discharge. Patient had hypoglycemic episodes. Patient needs reinforced education on differences of insulin types and danger of being hypoglycemic. Patient has discharge appointment 12/10/21; he would benefit from MTM re- referral and close monitoring this week until seen by Dr Maria. Thank you documented in this encounter Plan of Treatment Upcoming Encounters Date Type Specialty Care Team Description 12/06/2021 [facility] Visit [facility] Rica Taylor RN [address] [address] 12/10/2021 Office Visit Family James Rooney DO [address] [address] 02/26/2022 Office Visit Podiatry Kylie Burroughs DPM [address] [place] [address] 03/12/2022 Office Visit Family James Rooney DO [address] [address] 06/02/2022 Office Visit Cardiology Arjun Nielsen, Del Gann, DO [address] [facility] [place] [address] Scheduled Procedures Name Priority Associated Diagnoses Date/Ti [...] Documents on File Type Date Recorded Patient Metalizing Machine Operator Automatic Expl anation Advanced Directive service a hi [...] Directive Advanced Directive Advanced Directive Care Teams Gypsum Calciner Relationship Specialty Start Date End Date James Maria DO [address] [facility] [place] [address] PCP - General Family Medicine 06/07/18 documented as of this encounter
--- OUTSIDE RECORDS SUMMARY | 2023-07-31 20:25 | External Medical Summary | Summary of Care ---
Author Name Unknown Organization [place] [address] Care Team Providers Care Entry Level Marketing Assistant Name Role Phone James Maria DO Primary Care Provider Reason for Visit * Reason Onset Date Comments Medication Problem 12/09/2021 Encounter Details Date Type Department Care Team Description 12/09/2021 Telephone Family Practice [facility] [address] [place] [address] James Maria DO [address] [place] [address] Medication Problem Allergies Active Allergy Reactions Severity Noted Date Comments Lisinopril Edema face/lips/tongue High 04/05/2018 documented as of this encounter (statuses as of 12/09/2021) Medications Medication Sig Dispensed Refills Start Date [...] 5 Tab 6 7 Active Glucose Blood (SourceryTOUCH VEREleven Wireless) STRP Use up to 4 times a day E11.9 300 Strip 3 7 Active Blood Glucose Monitoring Suppl ([employer]) w/Device KITIndications:Type 2 diabetes mellitus with hemoglobin A1c goal of 7.0%-8.0% ([facility]) Use as directed. Recommend check glucose levels [...] 40 g 1 1 Active ReliOn Pen [place] 32G X 4 MM (Insulin Pen Needle)Indications: [...] by mouth daily. 90 Tab 1 1 Active Aspirin EC 81 MG Oral Tablet Delayed ReleaseIndications: Type 2 diabetes mellitus with diabetic neuropathy, with long-term current use of insulin ([facility]) Take 1 Tab by mouth daily. 100 Tab 1 1 Active Additional Information Patient not taking. Reported on 12/06/2021 Tamsulosin HCl 0.4 MG Oral Capsule (Flomax) Take 1 Cap by mouth daily. 90 Cap 0 1 Active Eliquis 5 MG Oral TabletIndications:C hronic atrial fibrillation (HCC) Take 1 Tablet by mouth 2 times a day. 180 Tablet 3 2 Active metFORMIN HCl [...] before supper. 30 mL 5 2 Active Insulin NPH Isophane & Regular (70-30) 100 UNIT/ML Subcutaneous Suspension (NovoLIN 70/30)Indications:T ype 2 diabetes mellitus with hemoglobin A1c goal of less than 8.0% (HCC) Inject under the skin 2 times a day. 30 units before breakfast and 15 units before supper. 30 mL 5 2 12/09/19 22 Discontinu ed(Refill) documented as of this encounter (statuses as of 12/09/2021) Active Problems Problem Noted Date BPH with [...] as of this encounter (statuses as of 12/09/2021) Resolved Problems Problem Noted Date Resolved Date [...] as of this encounter (statuses as of 12/09/2021) Immunizations Name Administration Dates Next Due COVID-19 [...] Telephone Encounter - Celina Lau LPN - 12/09/2021 4:41 PM EST Left detailed message on pt's 's Farhana identified voice mail with below information read twice on voice mail per Dr. Maria. Also, that new Rx sent to pharmacy. Advised to contact our office for further question or concern. * Telephone Encounter - Brianna Amaro MED ASSIST - 12/09/2021 3:44 PM EST message left for patient to call back. * Telephone Encounter - James Maria DO - 12/09/2021 2:53 PM EST Advise dropping the 70/30 dose to 20 units in the morning, 15 in the evening. He is to see MTM on the and this will help as well to nail down a plan. * Telephone Encounter - Beverly Storey LPN - 12/09/2021 12:07 PM EST Farhana, pt's calling. States that pt is taking 30 units of Novolin 70/30 in the morning and 15 units at night. States that after pt takes the 30 units in the morning, it is dropping pt's BSG. Yesterday 2.6.22 pt's BSG dropped to 54 after taking the morning dose and was 68 or 69 today 2.7.22after taking the morning dose. Pt brought BSG back up yesterday by drinking soda with sugar in it. Pt is not there at this time and is staying at his sisters place. Called PCP office and spoke with Abbie and will let PCP's nurse aware. Pharm selected. Please advise. documented in this encounter Plan of Treatment Upcoming Encounters Date Type Specialty Care Team Description 12/18/2021 [facility] Visit [facility] Rica Taylor, RN [address] [place] [address] 12/19/2021 Pharmacy Pharmacy [facility] Erica [address] [place] [address] 12/25/2021 Telemedicine [facility] Wendy Cisneros CRNP [address] [place] [address] Sara Recinos, [facility] Medical Director [address] [place] [address] 12/26/2021 Office Visit Cardiology Del Díaz Jr., DO [address] [address] 02/26/2022 Office Visit Podiatry Kylie Burroughs, REMEDIOS [address] [place] [address] 03/12/2022 Office Visit Family Medicine James Maria DO [address] [address] 06/02/2022 Office Visit Cardiology Del Díaz Jr., DO [address] [address] 06/04/2022 Office Visit Family Medicine James Maria DO [address] [address] Scheduled Procedures Name Priority Associated Diagnoses Date/Ti [...] Documents on File Type Date Recorded 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
--- OUTSIDE RECORDS SUMMARY | 2023-07-31 20:25 | External Medical Summary | Summary of Care ---
Author Name Unknown Organization [facility] Address [place] [address] Care Team Providers Care Parliamentary Librarian Name Role Phone James Maria Primary Care Provider Reason for Visit * Reason Comments [facility]: Maintenance Encounter Details Date Type Department Care Team Description 12/06/2021 [facility] Visit [facility] [address] [place] [address] Rica Taylor, RN [address] [facility] [place] [address] Allergies Active Allergy Reactions Severity Noted Date Comments Lisinopril Edema face/lips/tongue High 04/05/2018 documented as of this encounter (statuses as of 12/06/2021) Medications Medication Sig Dispensed Refills Start Date [...] 5 Tab 6 7 Active Glucose Blood (Innovate/ProtectTOUCH VERVenturepax) STRP Use up to 4 times a day E11.9 300 Strip 3 7 Active Blood Glucose Monitoring Suppl (Adaptive TCR) w/Device KITIndications:Type 2 diabetes mellitus with hemoglobin A1c goal of 7.0%-8.0% ([facility]) Use as directed. Recommend check [...] 40 g 1 1 Active ReliOn Pen [place] 32G X 4 MM (Insulin Pen Needle)Indications: Type 2 diabetes mellitus with polyneuropathy (HCC) Use as directed with flexpen 100 Each 6 1 Active Insulin Syringe-Needle U-100 30G X 5/16" 0.3 MLIndications:Type 2 diabetes mellitus with polyneuropathy (HCC),Type 2 diabetes mellitus with hemoglobin A1c goal of less than 8.0% ([facility]) Use up to 4 x a day for insulin dosing E11.9 3 Each 1 1 Active Atorvastatin Calcium 40 MG Oral Tablet (Lipitor) Take 1 Tab by mouth daily. 90 Tab 1 1 Active Aspirin EC 81 MG Oral Tablet Delayed ReleaseIndications: Type 2 diabetes mellitus with diabetic neuropathy, with long-term current use of insulin ([facility]) Take 1 Tab by mouth daily. 100 Tab 1 1 Active Additional Information Patient not taking. Reported on 12/06/2021 Tamsulosin HCl 0.4 MG Oral Capsule (Flomax) Take 1 Cap by mouth daily. 90 Cap 0 1 Active Eliquis 5 MG Oral TabletIndications:C hronic atrial fibrillation (HCC) Take 1 Tablet by mouth 2 times a day. 180 Tablet 3 2 Active Furosemide 40 MG Oral Tablet (Lasix)Indications: Chronic atrial fibrillation (HCC) Take 1 Tablet by mouth daily. 90 Tablet 3 2 Active Insulin NPH [...] before bedtime. 180 Tablet 3 2 Active Cephalexin 500 MG Oral Capsule (Keflex) Take by mouth 500 mg in the morning AND 500 mg at noon AND 500 mg before bedtime. 0 12/06/19 22 Discontinu ed(Medicat ion List Clean Up) documented as of this encounter (statuses as of 12/06/2021) Active Problems Problem Noted Date BPH with [...] as of this encounter (statuses as of 12/06/2021) Resolved Problems Problem Noted Date Resolved Date [...] as of this encounter (statuses as of 12/06/2021) Immunizations Name Administration Dates Next Due COVID-19 [...] Reading Time Taken Comments Blood Pressure 118/64 12/06/2021 2:46 PM EST Pulse 56 12/06/2021 2:46 PM EST Temperature 36.7 C (98 F) 12/06/2021 2:46 PM EST Respiratory Rate 18 12/06/2021 2:46 PM EST Oxygen Saturation 94% 12/06/2021 2:46 PM EST Inhaled Oxygen Concentration - - Weight - - Height - - Body Mass Index - - documented in this encounter Progress Notes * Rica Taylor RN - 12/06/2021 2:41 PM EST [facility] Straightener Hand KINZA #2 Visit Date: 12/06/2021 Time: 2:41 PM Name: Selvin Sebastian : 1945 Current Concerns: Pt seen for KINZA #2 Hospitalized at [facility] 12/01 - 12/03 for Bacteremia Finished Keflex for cellulitis of RLE Still has edema of BLE - advised to get compression stockings Bottle out med rec completed - missing Furosemide - TE sent to PCP to get refill Pt reports he checks his sugar 3-6x a day - he reports he does check it before meals and at bed time. He says he checks it more often if he feels it isn't a good reading It has been ranging 82- 252 He continues to stay with his sister for now Use [employer] for communication d/t [facility] Physical Exam: BP 118/64 | Pulse 56 | Temp 36.7 C (98 F) | Resp 18 | SpO2 94% Pain 0 Physical Exam Constitutional: General: He is not in acute distress. HENT: Nose: Nose normal. Cardiovascular: Rate and Rhythm: Normal rate. Rhythm irregular. Pulses: Normal pulses. Heart sounds: Normal heart sounds. Pulmonary: Effort: Pulmonary effort is normal. Breath sounds: Normal breath sounds. Abdominal: Palpations: Abdomen is soft. Musculoskeletal: Right lower [...] Genitourinary: Negative. Musculoskeletal: Positive for arthralgias. Skin: Negative. Neurological: Negative. Psychiatric/Behavioral: Negative. Medication Reconciliation: (See medication list) Does patient take medications as ordered: Yes Patient Well Being: PHQ2/9: No questionnaires available. No change in living situation Denies any recent falls Advanced Care Planning: No documentation, none [...] Dosing. and Purspose. Treatment/Plan: Continue meds as prescribed/reviewed TE sent to PCP regard Furosemide - pt needs refill Compression stockings to BLE daily Elevate LE [...] Increased edema Patient Needs to Remember: Call [facility] at with any new or worsening health concerns or problems, red flag symptoms. Referrals Needed: Other none Follow Up: Is there cellular connectivity/connectivity in the home? Yes Does the patient have internet in the home? No Patient encouraged to call the intake phone number for all urgent but not emergent issues. Is the patient new to [facility] at Home within the last 30 days? Yes, Is this a Transitions of Care visit? Yes, this is the 2nd visit or later, Yes cellular connectivity. Was their Readmission Risk Score less than 18%? Yes Does the patient have any active signs of an exacerbation? No Has the patient had any ED visits since being discharged? No, Please forward to Community Product Marketer for telehealth scheduling, and indicate appropriate week of Transition of Care. Provider is in agreement with Plan of Care: Yes Scheduled to follow up with patient per KINZA schedule. Rica Taylor RN 12/06/2021 2:41 PM documented in this encounter Plan of Treatment Upcoming Encounters Date Type Specialty Care Team Description 12/18/2021 [facility] Visit [facility] Rica Taylor RN [address] [facility] [place] [address] 12/19/2021 Pharmacy Pharmacy [facility] Erica [address] [place] [address] 12/26/2021 Office Visit Cardiology Del Díaz Jr., [address] [address] 02/26/2022 Office Visit Podiatry Kylie Burroughs DPM [address] [place] [address] [place] [address] 03/12/2022 Office Visit Family Medicine James Maria, [address] [address] 06/02/2022 Office Visit Cardiology Del Díaz Jr., [address] [place] [address] 06/04/2022 Office Visit Family Medicine James Maria, DO [address] [place] [address] Scheduled Procedures Name Priority Associated Diagnoses Date/Ti [...] Documents on File Type Date Recorded 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
--- OUTSIDE RECORDS SUMMARY | 2023-07-31 20:25 | External Medical Summary | Summary of Care ---
Author Name Unknown Organization [facility] Address [place] [address] Care Team Providers Care Crm Marketing Analyst Name Role Phone Mejia Maria Primary Care Provider Reason for Visit * Reason Onset Date Comments Medication Refill 12/06/2021 Encounter Details Date Type Department Care Team Description 12/06/2021 Refill ising at Home, [facility] [address] [facility] [place] [address] Rica Taylor, RN [address] [facility] [place] [address] Chronic atrial fibrillation (HCC) Allergies Active Allergy [...] 5 Tab 6 7 Active Glucose Blood (CYTIMMUNE SCIENCESTOUCH VERIO) STRP Use up to 4 times a day E11.9 300 Strip 3 7 Active Blood Glucose Monitoring Suppl (CYTIMMUNE SCIENCESTOExepron VERIO) w/Device KITIndications:Type 2 diabetes mellitus with hemoglobin A1c goal of 7.0%-8.0% ([facility]) Use as directed. Recommend check glucose [...] 40 g 1 1 Active ReliOn Pen [place] 32G X 4 MM (Insulin Pen Needle)Indications: Type 2 diabetes mellitus with polyneuropathy (HCC) Use as directed with flexpen 100 Each 6 1 Active Insulin Syringe-Needle U-100 30G X 5/16" 0.3 MLIndications:Type 2 diabetes mellitus with polyneuropathy (HCC),Type 2 diabetes mellitus with hemoglobin A1c goal of less than 8.0% ([facility]) Use up to 4 x a day for insulin dosing E11.9 3 Each 1 1 Active Atorvastatin Calcium 40 MG Oral Tablet (Lipitor) Take 1 Tab by mouth daily. 90 Tab 1 1 Active Aspirin EC 81 MG Oral Tablet Delayed ReleaseIndications: Type 2 diabetes mellitus with diabetic neuropathy, with long-term current use of insulin ([facility]) Take 1 Tab by mouth daily. 100 Tab 1 1 Active Additional Information Patient not taking. Reported on 12/06/2021 Tamsulosin HCl 0.4 MG Oral Capsule (Flomax) Take 1 Cap by mouth daily. 90 Cap 0 1 Active Eliquis 5 MG Oral TabletIndications:C hronic atrial fibrillation (HCC) Take 1 Tablet by mouth 2 times a day. 180 Tablet 3 2 Active Insulin NPH Isophane [...] the morning. 90 Tablet 3 2 Active Furosemide 40 MG Oral Tablet (Lasix)Indications: Chronic atrial fibrillation (HCC) Take 1 Tablet by mouth daily. 90 Tablet 3 2 12/06/19 22 Discontinu ed(Refill) documented as of this [...] Telephone Encounter - Mejia Maria DO - 12/09/2021 10:09 AM EST Signed Prescriptions: Disp Refills Furosemide 40 MG Oral Tablet (Lasix) 90 Tab*3 Sig: Take by mouth 1 Tablet in the morning. Authorizing Provider: MEJIA MARIA * Telephone Encounter - Rica Taylor RN - 12/06/2021 3:[address] Maria - Doing med rec at home with pt and he is missing Furosemide. He says he didn't know he was supposed to take it. Looks like the script was sent to [facility]. Pt uses [facility]. Can you please send the script to Cristal? Pt also as Aspirin on his list but he says he was told he does not have to take it since on the [facility] [place] documented in this encounter Plan of Treatment Upcoming Encounters Date Type Specialty Care Team Description 12/18/2021 [facility] Rica Taylor RN [address] [place] [address] 12/19/[address] [facility] Erica [address] [place] [address] 12/26/2021 Office Visit Cardiology Del Díaz Jr., DO [address] [place] [address] 02/26/2022 Office Visit Podiatry Kylie Burroughs DPM [address] [place] [address] [place] [address] 03/12/2022 Office Visit Family Medicine Mejia Maria DO [address] [place] [address] 06/02/2022 Office Visit Cardiology Del Díaz Jr., DO [address] [place] [address] 06/04/2022 Office Visit Family Medicine Mejia Maria, DO [address] [place] [address] Scheduled Procedures Name Priority Associated Diagnoses Date/Ti [...] Documents on File Type Date Recorded Patient Silk Hanger Expl anation Advanced Directive service a hi [...] Directive Advanced Directive Advanced Directive Care Teams Crm Marketing Analyst Relationship Specialty Start Date End Date Mejia Maria DO [address] [facility] [place] [address] PCP - General Family Medicine 06/07/18 documented as of this encounter
--- OUTSIDE RECORDS SUMMARY | 2023-07-31 20:25 | External Medical Summary | Summary of Care ---
Author Name Unknown Organization [facility] Address [place] [address] Care Team Providers Care Supervisor Education Name Role Phone James Maria DO Primary Care Provider Encounter Details Date Type Department Care Team Description 12/01/2021 Scan Encounter Family Practice [facility] [address] [place] [id number] [facility] [place] [address] <No scans attached> Allergies Active Allergy Reactions [...] 3 08/24/2017 Active Blood Glucose Monitoring Suppl (ComActivity) w/Device KITIndications:Type 2 diabetes mellitus with hemoglobin [...] 40 g 1 07/05/2021 Active ReliOn Pen [place] 32G X 4 MM (Insulin Pen Needle)Indications:T [...] 12/06/2021 Home Visit [facility] Rica Taylor, DANTE [address] [place] [address] 02/26/2022 Office Visit Podiatry Kylie Burroughs DPM [address] [place] [address] 03/12/2022 Office Visit Family Medicine James Maria DO [address] [place] [address] 06/02/2022 Office Visit Cardiology Arjun Nielsen, Del Gann, DO [address] [place] [address] Scheduled Procedures Name Priority Associated Diagnoses Date/Ti [...] Documents on File Type Date Recorded 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
--- OUTSIDE RECORDS SUMMARY | 2023-07-31 20:25 | External Medical Summary | Summary of Care ---
Author Name Unknown Organization [facility] Address [place] [address] Care Team Providers Care Financial Services Assistant Name Role Phone James Maria DO Primary Care Provider Reason for Visit * Reason Onset Date Comments [facility]: Maintenance 12/03/2021 Encounter Details Date Type Department Care Team Description 12/03/2021 Telephone General Internal Medicine [facility] [place] [address] [place] [address] James Maria DO [address] [place] [address] [facility]: Maintenance Allergies Active [...] 5 Tab 6 08/24/2017 Active Glucose Blood (CouchbaseTOUCH VERIO) STRP Use up to 4 times a day E11.9 300 Strip 3 08/24/2017 Active Blood Glucose Monitoring Suppl (CouchbaseTORue89 VERIO) w/Device KITIndications:Type 2 diabetes mellitus with [...] 40 g 1 07/05/2021 Active ReliOn Pen [place] 32G X 4 MM (Insulin Pen Needle)Indications:T [...] 2:05 PM EST Forward IB message to master scheduler and [facility] [employer] PROMOTER to set up KINZA's Message routed Priscilla Jim RN BSN [facility] RN * Telephone Encounter - Rani Knott RN - 12/03/2021 12:51 PM EST Pt is followed by [facility] will forward encounter. * Telephone Encounter - Bernardo Camejo RN - 12/03/2021 12:18 PM EST Patient being discharged to home from [facility]. 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
--- OUTSIDE RECORDS SUMMARY | 2023-07-31 20:25 | External Medical Summary | Summary of Care ---
Author Name Unknown Organization [facility] Address [place] [address] Care Team Providers Care Retread Builder Name Role Phone James Maria DO Primary Care Provider Encounter Details Date Type Department Care Team Description 12/03/2021 Scan Encounter Family Practice [facility] [address] [place] [id number] [facility] DO [facility] [place] [address] <No scans attached> Allergies Active Allergy Reactions Severity Noted Date Comments Lisinopril Edema face/lips/tongue High 04/05/2018 documented as of this encounter (statuses as of 12/17/2021) Medications Medication Sig Dispensed Refills Start Date [...] Tab 6 08/24/2017 Active Glucose Blood (ONETOUCH VERKIS Group) STRP Use up to 4 times a day E11.9 300 Strip 3 08/24/2017 Active Blood Glucose Monitoring Suppl (Make Works) w/Device KITIndications:Type 2 diabetes mellitus with hemoglobin [...] 40 g 1 07/05/2021 Active ReliOn Pen [place] 32G X 4 MM (Insulin Pen Needle)Indications:T ype 2 diabetes mellitus with polyneuropathy ([facility]) Use as directed with flexpen 100 Each 6 09/05/2021 Active Insulin Syringe-Needle U-100 30G X 5/16" 0.3 MLIndications:Type 2 diabetes mellitus with polyneuropathy ([facility]),Type 2 diabetes mellitus with hemoglobin A1c goal [...] neuropathy, with long-term current use of insulin ([facility]) Take 1 Tab by mouth daily. 100 Tab 1 09/05/2021 Active Additional Information Patient not taking. Reported on 12/06/2021 Tamsulosin HCl 0.4 MG Oral Capsule (Flomax) Take 1 Cap by mouth daily. 90 Cap 0 09/05/2021 Active Eliquis 5 MG Oral TabletIndications:Ch ronic atrial fibrillation (HCC) Take 1 Tablet by mouth 2 times a day. 180 Tablet 3 11/20/2021 Active documented as of this encounter (statuses as of 12/17/2021) Active Problems Problem Noted Date BPH with [...] as of this encounter (statuses as of 12/17/2021) Resolved Problems Problem Noted Date Resolved Date [...] as of this encounter (statuses as of 12/17/2021) Immunizations Name Administration Dates Next Due COVID-19 [...] 12/18/2021 Home Visit [facility] Rica Taylor RN [address] [address] [address] 12/19/2021 Pharmacy Pharmacy [facility] [address] [address] 12/25/2021 Telemedicine [facility] Wendy Cisneros CRNP [address] [address] Sara Recinos, Community Health Printing Supervisor [address] [place] [address] 12/26/2021 Office Visit Cardiology Del Díaz Jr., DO [address] [address] 02/26/2022 Office Visit Podiatry Kylie Burroughs, REMEDIOS [address] [facility] [place] [address] 03/12/2022 Office Visit Family Medicine James Maria DO [address] [address] 06/02/2022 Office Visit Cardiology Del Díaz Jr., DO [address] [address] 06/04/2022 Office Visit Family Medicine James Maria, DO [address] [address] Scheduled Procedures Name Priority Associated Diagnoses Date/Ti [...] Documents on File Type Date Recorded Patient Ecmo Specialist Expl 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 Directive Advanced Directive Advanced Directive Care Teams Retread Builder Relationship Specialty Start Date End Date James Maria DO 132 [facility] [place] [address] PCP - General Family Medicine 06/07/18 documented as of this encounter
--- OUTSIDE RECORDS SUMMARY | 2023-07-31 20:25 | External Medical Summary | Summary of Care ---
Author Name Unknown Organization [facility] [place] [address] Care Team Providers Care Watch Electrician Name Role Phone James Maria DO Primary Care Provider Reason for Referral * Evaluate & Treat - Unlimited Visits (Within 3 days (urgent)) - Authorized Specialty Diagnoses / Procedures Referred By Contac t Referred To Contact Pharmacist / Pharmacy Diagnoses Type 2 diabetes mellitus with hemoglobin A1c goal of less than 8.0% ([facility]) James Maria DO [address] [place] [address] Referral ID Status Reason Start Date Expiration Date Visits Requested Visits Authorized [id number] Authorized Specialty Services Required 12/05/2021 99 99 [...] have his medication therapy managed by the [facility] Medication Therapy Disease Management [facility] ([facility]) per established policies, procedures, and protocols. I also certify that this referral may serve as an initiation of service for the management of drug therapy in the above noted patient. [facility] providers will be responsible for scheduling patient visits, obtaining appropriate laboratory studies, and adjusting medication management therapy per patient's need, in addition to those roles spelled out in the clinic policy, procedures, and drug management protocols. I understand that the service provided by the [facility] Clinic is voluntary and have informed patient that they can refuse the service at their discretion. I am aware that the [facility] Clinic will provide me with a copy of the patient encounter via my [employer] InTicket Cakesket. I authorize the [facility] Clinic to carry out these activities on my behalf. I consider this program to be a necessary part of the patient's medical care. James Maria DO Reason for Visit * Reason Comments Hospital Follow-Up Pt here for hosp f/u , discharged from [facility] on 12/03/2021 for diabetes , bilat lower leg cellulitis. Encounter Details Date Type Department Care Team Description 12/05/[address] [facility] [address] [address] James Maria DO [address] [place] [address] Type 2 diabetes mellitus with hemoglobin A1c [...] as of this encounter (statuses as of 12/05/2021) Medications Medication Sig Dispensed Refills Start Date End Date Status Blood Glucose Monitoring Suppl (Oceans HealthcareUCH ULTRA SYSTEM) W/DEVICE KIT Use as directed 4 times a day as needed for Hyperglycemia (high sugar) or Hypoglycemia (low sugar). Use up to four times a day as directed 1 Kit 0 01/29/20 16 Active Ozy MediaTOUCH ULTRA BLUE STRP USE TO CHECK GLUCOSE 4 TIMES DAILY 100 Strip 0 11/13/19 17 Active ONETOUCH DELICA LANCETS 33G [facility] USE ONE TO CHECK GLUCOSE 4 TIMES DAILY 100 Each 0 11/13/19 17 Active Sildenafil Citrate (VIAGRA) 50 MG TabletIndications: Impotence of organic origin Take 1 Tab by mouth as needed for Erectile Dysfunction. 5 Tab 6 08/24/20 17 Active Glucose Blood (Ozy MediaTOUCH VERIO) STRP Use up to 4 times a day E11.9 300 Strip 3 08/24/20 17 Active Blood Glucose Monitoring Suppl (Medbox) w/Device KITIndications:Typ e 2 diabetes mellitus with [...] weeks. 40 g 1 07/05/20 21 Active ReliOn Pen [place] 32G X 4 MM (Insulin Pen Needle)Indications :Type 2 diabetes mellitus with polyneuropathy ([facility]) Use as directed with flexpen 100 Each 6 09/05/20 21 Active Insulin Syringe-Needle U-100 30G X 5/16" 0.3 MLIndications:Type 2 diabetes mellitus with polyneuropathy ([facility]),Type 2 diabetes mellitus with hemoglobin A1c goal of less than 8.0% ([facility]) Use up to 4 x a day for insulin dosing E11.9 3 Each 1 09/05/20 21 Active Atorvastatin Calcium 40 MG Oral Tablet (Lipitor) Take 1 Tab by mouth daily. 90 Tab 1 09/05/20 21 Active Aspirin EC 81 MG Oral Tablet Delayed ReleaseIndications :Type 2 diabetes mellitus with diabetic neuropathy, with long-term current use of insulin ([facility]) Take 1 Tab by mouth daily. 100 Tab 1 09/05/20 21 Active Tamsulosin HCl 0.4 MG Oral Capsule (Flomax) Take 1 Cap by mouth daily. 90 Cap 0 09/05/20 21 Active Eliquis 5 MG Oral TabletIndications: Chronic atrial fibrillation (HCC) Take 1 Tablet by mouth 2 times a day. 180 Tablet 3 11/20/19 22 Active Furosemide 40 MG Oral Tablet (Lasix)Indications :Chronic atrial fibrillation (HCC) Take 1 Tablet by mouth daily. 90 Tablet 3 11/20/19 22 Active Cephalexin 500 MG Oral Capsule (Keflex) Take by mouth 500 mg in the morning AND 500 mg at noon AND 500 mg before bedtime. 0 Active Insulin NPH Isophane & Regular (70-30) 100 UNIT/ML Subcutaneous Suspension (NovoLIN 70/30)Indications: Type 2 diabetes mellitus with hemoglobin A1c goal of less than 8.0% (HCC) Inject under the skin 2 times a day. 30 units before breakfast and 15 units before supper. 30 mL 5 12/05/19 22 Active metFORMIN HCl ER 500 MG Oral Tablet Extended Release 24 Hour (Glucophage XR)Indications:Typ e 2 diabetes mellitus with hemoglobin A1c goal of less than 8.0% (HCC) Take by mouth 2 Tablets in the morning. 180 Tablet 3 12/05/19 22 Active Metoprolol Tartrate 25 MG Oral Tablet (Lopressor) Take by mouth 1 Tablet in the morning AND 1 Tablet before bedtime. 180 Tablet 3 12/05/19 22 Active metFORMIN HCl 1000 MG Oral Tablet (Glucophage)Indica tions:Type 2 diabetes mellitus with hemoglobin A1c goal of less than 7.0% (HCC) Take 1 Tab by mouth 2 times a day with morning and evening meals. 180 Tab 1 09/05/20 21 022 Discontinued Insulin NPH Isophane & Regular (70-30) 100 UNIT/ML Subcutaneous Suspension (NovoLIN 70/30)Indications: Type 2 diabetes mellitus with hemoglobin A1c goal of less than 8.0% (HCC) Inject under the skin 2 times a day. 50 units before breakfast and 25 units before supper. 30 mL 5 11/20/19 22 022 Discontinued(Re fill) Metoprolol Tartrate 25 MG Oral Tablet (Lopressor) Take 25 mg by mouth 2 times a day. 0 11/16/19 22 022 Discontinued(Re fill) documented as of this encounter (statuses as of 12/05/2021) Active Problems Problem Noted Date BPH with [...] as of this encounter (statuses as of 12/05/2021) Resolved Problems Problem Noted Date Resolved Date [...] as of this encounter (statuses as of 12/05/2021) Immunizations Name Administration Dates Next Due COVID-19 [...] encounter Patient Instructions * Patient Instructions* James Maria, DO - 12/05/2021 9:06 AM EST BMI (Body Mass Index) is the number obtained by dividing a person's weight in kilograms by his or her height in meters squared. BMI is used in determining obesity. BMI is not used to determine a person's actual percentage of body fat, but it is a good tool to medical secretary weight in terms of what is healthy [...] message program is also available. Go to TroopSwap and seethe message under '[employer] News' for more information and enrollment. Patient [...] permitted. Keep Honest, Accurate Food logs: * www.aXess [place].Conductiv * www.[employer] * If you bite it - write [...] due to his dietary lack of control - Insulin NPH Isophane & Regular (70-30) [...] (Pt here for hosp f/u, discharged from [facility] on 12/03/2021 for diabetes , bilat lower leg cellulitis.) Communication continues to be difficult due to hearing loss Lack of medical understanding Will be getting arranged with [facility] home He had not followed through [...] Pt here for hosp f/u, discharged from [facility] on 12/03/2021 for diabetes , bilat lower leg cellulitis. documented in this encounter Plan of Treatment Upcoming Encounters Date Type Specialty Care Team Description 12/06/2021 [facility] Visit [facility] Rica Taylor RN [address] [address] 12/26/2021 Office Visit Cardiology Del Díaz Jr., DO [address] [address] 02/26/2022 Office Visit Podiatry Kylie Burroughs, DPM [address] [facility] [place] [address] 03/12/2022 Office Visit Family Medicine James Maria, DO [address] [address] 06/02/2022 Office Visit Cardiology Del Díaz Jr., DO [address] [address] 06/04/2022 Office Visit Family Medicine James Maria, DO [address] [address] Scheduled Procedures Name Priority Associated Diagnoses Date/Ti me COLONOSCOPY FLEXIBLE PROXIMA L DIAGNOSTIC Recall Encounter for screening colonoscopy Scheduled Referrals Name Type Priority Associated Diagnoses Orde r Schedule PHARMACIST MEDS THERAPY MGMT REFERRAL OP Referral Within 3 days (urgent) Type 2 diabetes mellitus with hemoglobin A1c goal of less than 8.0% ([facility]) Ordered: 12/05/2021 Health Maintenance Due [...] Documents on File Type Date Recorded Patient Special Police Officer Expl 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 Directive Advanced Directive Advanced Directive Care Teams Watch Electrician Relationship Specialty Start Date End Date James Maria DO 132 [facility] [place] [address] PCP - General Family Medicine 06/07/18 documented as of this encounter
--- OUTSIDE RECORDS SUMMARY | 2023-07-31 20:25 | External Medical Summary | Summary of Care ---
Author Name Unknown Organization [facility] Address [place] [address] Care Team Providers Care Tool Grinder Set Up Operator Gear Name Role Phone James Maria Primary Care Provider Reason for Visit * Reason Onset Date Comments [facility]: Maintenance 12/18/2021 Encounter Details Date Type Department Care Team Description 12/18/2021 Telephone [facility], [facility] [address] [facility] [place] [address] Rica Taylor, RN 132 [facility] [place] [address] [facility]: Maintenance Allergies Active Allergy [...] 5 Tab 6 08/24/2017 Active Glucose Blood (ONEHOPETOUCH VERIO) STRP Use up to 4 times a day E11.9 300 Strip 3 08/24/2017 Active Blood Glucose Monitoring Suppl (ONEHOPETORuangguru VERIO) w/Device KITIndications:Type 2 diabetes mellitus with [...] 40 g 1 07/05/2021 Active ReliOn Pen [place] 32G X 4 MM (Insulin Pen Needle)Indications:T [...] encounter Miscellaneous Notes * Telephone Encounter - Светлана Herr [facility] - 12/18/2021 11:32 AM EST Thank you [...] Taylor RN - 12/18/2021 11:13 AM EST [facility] - Pt has appt with you tomorrow for diabetes management - appears to be a telephone call. Pt is very [place] and needs all instructions written down so [...] than 70 - until otherwise instructed by [facility]. Please reach out to pt/ and get visit scheduled or be sure to reach out to to assist in phone calls - but again, in person visits would be most beneficial for this pt. Also, he is interested in [facility] if he qualifies. Thank you. documented in this encounter Plan of Treatment Upcoming Encounters Date Type Specialty Care Team Description 12/19/2021 Pharmacy Pharmacy [facility] Erica [address] [address] 12/25/2021 Telemedicine [facility] Wendy Cisneros CRNP [address] [place] [address] Sara Recinos, Community Health Balance Wheel Hand Filer [address] [place] [address] 12/26/2021 Office Visit Cardiology Arjun Nielsen, Del Gann DO [address] [address] 12/31/2021 Home Visit [facility] Elda Ponce RN [address] [place] [address] 02/26/2022 Office [facility] [address] 03/12/2022 Office Visit Family Medicine James Maria, DO [address] [address] 06/02/2022 Office Visit Cardiology Del Díaz Jr., DO [address] [address] 06/04/2022 Office Visit Family Medicine James Maria, [address] [address] Scheduled Procedures Name Priority Associated Diagnoses Date/Ti [...] Documents on File Type Date Recorded Patient Parcel Post Officer Expl 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 Directive Advanced Directive Advanced Directive Care Teams Tool Grinder Set Up Operator Gear Relationship Specialty Start Date End Date James Maria DO 132 [facility] [place] [address] PCP - General Family Medicine 06/07/18 documented as of this encounter
--- OUTSIDE RECORDS SUMMARY | 2023-07-31 20:25 | External Medical Summary | Summary of Care ---
Author Name Unknown Organization [place] [address] Care Team Providers Care Special Police Officer Name Role Phone James Maria Primary Care Provider Reason for Visit * Reason Onset Date Comments [facility]: Maintenance 12/09/2021 Encounter Details Date Type Department Care Team Description 12/09/2021 Telephone [facility], [facility] [address] [facility] [place] [address] Services, Scheduling [address] [place] [address] [facility]: Maintenance Allergies Active Allergy [...] 3 08/24/2017 Active Blood Glucose Monitoring Suppl ([employer]) w/Device KITIndications:Type 2 diabetes mellitus with hemoglobin [...] 40 g 1 07/05/2021 Active ReliOn Pen [place] 32G X 4 MM (Insulin Pen Needle)Indications:T [...] 10/21/2018 03/13/2020 Neurogenic ulcer of foot 05/19/2017 07/20/2 017 HTN, GOAL BELOW 140/80 06/21/2012 6 [...] * Telephone Encounter - MICHEL Bonilla - 12/09/2021 4:35 PM EST lmom for patient that Wendy MCFARLAND and ARABELLA Recinos are scheduled for a visit on 12/25/21 Phone number provided for [facility] at [phone]. MICHEL Bonilla documented in this encounter Plan of Treatment Upcoming Encounters Date Type Specialty Care Team Description 12/18/2021 Home Visit [facility] Rica Taylor, RN [address] [address] 12/19/2021 Pharmacy Pharmacy [facility] Erica [address] [address] 12/25/2021 Telemedicine [facility] Wendy Cisneros CRNP [address] [place] [address] Sara Recinos, Community Health Library Media Technician [address] [place] [address] 12/26/2021 Office Visit Cardiology Del Díaz Jr., DO [address] [address] 02/26/2022 Office Visit Podiatry Kylie Burroughs, REMEDIOS [address] [place] [address] 03/12/2022 Office Visit Family Medicine James Maria DO [address] [address] 06/02/2022 Office Visit Cardiology Del Díaz Jr., DO [address] [address] 06/04/2022 Office Visit Family Medicine James Maria DO [address] [address] Scheduled Procedures Name Priority Associated Diagnoses Date/Ti [...] Documents on File Type Date Recorded Patient Moving Worker Expl 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 Directive Advanced Directive Advanced Directive Care Teams Special Police Officer Relationship Specialty Start Date End Date James Maria, DO [address] [address] PCP - General Family Medicine 06/07/18 documented as of this encounter
--- OUTSIDE RECORDS SUMMARY | 2023-07-31 20:26 | External Medical Summary | Summary of Care ---
Author Name Unknown Organization [facility] Address [place] [address] Care Team Providers Care Dipper Machine Operator Name Role Phone Crow James Dyefiliberto Primary Care Provider Reason for Visit * Reason Onset Date Comments [facility]: Maintenance 11/22/2021 Encounter Details Date Type Department Care Team Description 11/22/2021 Telephone [facility], [facility] [address] [facility] [place] [address] Carlos Beebe DO [address] [place] [facility] [place] [address] [facility]: Maintenance Allergies Active Allergy Reactions Severity Noted Date Comments Lisinopril Edema face/lips/tongue High 04/05/2018 documented as of this encounter (statuses as of 11/22/2021) Medications Medication Sig Dispensed Refills Start Date [...] 5 Tab 6 08/24/2017 Active Glucose Blood (SWEEPiOTOUCH VERIO) STRP Use up to 4 times a day E11.9 300 Strip 3 08/24/2017 Active Blood Glucose Monitoring Suppl (SWEEPiOTOWantering VERIO) w/Device KITIndications:Type 2 diabetes mellitus with [...] 40 g 1 07/05/2021 Active ReliOn Pen [place] 32G X 4 MM (Insulin Pen [...] A1c goal of less than 8.0% ([facility]) Inject under the skin 2 times [...] for 10 days. 30 Capsule 0 11/22/2021 2 Active documented as of this encounter (statuses as of 11/22/2021) Active Problems Problem Noted Date BPH with [...] as of this encounter (statuses as of 11/22/2021) Resolved Problems Problem Noted Date Resolved Date [...] as of this encounter (statuses as of 11/22/2021) Immunizations Name Administration Dates Next Due COVID-19 [...] encounter Miscellaneous Notes * Telephone Encounter - Era Newman LPN - 11/22/2021 3:57 PM EST F/u calls scheduled * Telephone Encounter - Carlos Beebe DO - 11/22/2021 3:06 PM EST Patient being seen for transition of care after admission for AFib and left lower extremity cellulitis. AFib is rate controlled and on anticoagulation. Was discharged on 3 days of doxycycline but left lower extremity still with erythema, warmth to palpation. Will give 7 days of Keflex for left lower extremity cellulitis. Problem List Items Addressed This Visit None Visit Diagnoses Cellulitis of left lower extremity - Primary Relevant Medications Cephalexin 500 MG Oral Capsule Please place on for phone call follow-up over the weekend. documented in this encounter Plan of Treatment Upcoming Encounters Date Type Specialty Care Team Description 11/23/2021 Scheduled Telephone [facility], Nurse [facility] [place] [address] 11/23/2021 Scheduled Telephone [facility], Nurse [facility] [place] [address] 11/24/2021 Scheduled Telephone [facility], [facility] [place] [address] 11/24/2021 Scheduled Telephone [facility], [facility] [place] [address] 11/26/2021 Office Visit Podiatry Sara Bridges DPM [address] [address] 11/26/2021 Office Visit Cardiology Del Díaz Jr., DO [address] [address] 11/28/2021 Home Visit [facility] Wendy Cisneros CRNP [address] [address] 12/06/2021 [facility] Visit [facility] Rica Taylor RN [address] [address] 03/12/2022 Office Visit Family Medicine James Maria DO [address] [address] Scheduled Procedures Name Priority Associated Diagnoses Date/Ti [...] this encounter Visit Diagnoses Diagnosis Cellulitis of left lower extremity- Primary Cellulitis and abscess of leg, except foot documented in this encounter Advance Directives Documents on File Type Date Recorded Patient Matcher Offbearer Expl anation Advanced Directive service a hi [...] Directive Advanced Directive Advanced Directive Care Teams Dipper Machine Operator Relationship Specialty Start Date End Date James Maria DO [address] [facility] [place] [address] PCP - General Family Medicine 06/07/18 documented as of this encounter
--- OUTSIDE RECORDS SUMMARY | 2023-07-31 20:26 | External Medical Summary | Summary of Care ---
Author Name Unknown Organization [place] [address] Care Team Providers Care Manager Plumbing Name Role Phone James Maria Primary Care Provider Encounter Details Date Type Department Care Team Description 11/22/2021 Telephone [facility], [place] [address] [place] [address] Services, Scheduling [address] [place] [address] Allergies Active Allergy Reactions Severity Noted Date Comments Lisinopril Edema face/lips/tongue High 04/05/2018 documented as of this encounter (statuses as of 11/22/2021) Medications Medication Sig Dispensed Refills Start Date End Date Status Blood Glucose Monitoring Suppl (Hundsun TechnologiesUCH ULTRA SYSTEM) W/DEVICE KIT Use as directed [...] 40 g 1 07/05/2021 Active ReliOn Pen [place] 32G X 4 MM (Insulin Pen Needle)Indications:T [...] * Telephone Encounter - MICHEL Estrada - 11/22/2021 4:13 PM EST Per request of Melina Ponce, I put patient on daily weekend f/u calls to check cellulitis documented in this encounter Plan of Treatment Upcoming Encounters Date Type Specialty Care Team Description 11/23/2021 Scheduled Telephone [facility], Nurse [address] [place] [address] 11/24/2021 Scheduled Telephone [facility] [place], Nurse Macrina Womack [address] [place] [address] 11/26/2021 Office Visit Podiatry Sara Bridges DPM [address] [place] [address] 11/26/2021 Office Visit Cardiology Del Díaz Jr., DO [address] [place] [address] 11/28/2021 Home Visit [facility] Wendy Cisneros CRNP [address] [place] [address] 12/06/2021 Home Visit [facility] Rica Taylor, DANTE [address] [place] [address] 03/12/2022 Office Visit Family Medicine James Maria, DO [address] [place] [address] Scheduled Procedures Name Priority Associated Diagnoses Date/Ti [...] Documents on File Type Date Recorded Patient Colorer Machine Expl anation Advanced Directive service a hi [...] Advanced Directive Advanced Directive Care Teams Manager Plumbing Relationship Specialty Start Date End Date James Maria DO 132 [facility] [place] [address] PCP - General Family Medicine 06/07/18 documented as of this encounter
--- OUTSIDE RECORDS SUMMARY | 2023-07-31 20:26 | External Medical Summary | Summary of Care ---
Author Name Unknown Organization [facility] Address [place] [address] Care Team Providers Care Signal Worker Helper Name Role Phone Jmaes Maria DO Primary Care Provider Encounter Details Date Type Department Care Team Description 12/01/2021 Scan Encounter Family Practice [facility] [address] [place] [id number] James [facility] DO [facility] [place] [address] <No scans attached> Allergies Active Allergy Reactions [...] 3 08/24/2017 Active Blood Glucose Monitoring Suppl (Dasher) w/Device KITIndications:Type 2 diabetes mellitus with hemoglobin [...] 40 g 1 07/05/2021 Active ReliOn Pen [place] 32G X 4 MM (Insulin Pen [...] Encounters Date Type Specialty Care Team Description 12/03/2021 Telemedicine [facility] Wendy Cisneros CRNP 132 [facility] [place] [address] Sara Recinos, Community Health Research Physicist [address] [facility] [place] [address] 12/06/2021 Home Visit [facility] Rica Taylor, RN [address] [place] [address] 02/26/2022 Office Visit Podiatry Kylie Burroughs, DPM [address] [place] [address] 03/12/2022 Office Visit Family Medicine James Maria, DO [address] [place] [address] 06/02/2022 Office Visit Cardiology Del Díaz Jr., DO [address] [place] [address] Scheduled Procedures Name Priority Associated Diagnoses Date/Ti [...] Documents on File Type Date Recorded Patient Veterinary Technology Instructor Expl anation Advanced Directive service a hi [...] Directive Advanced Directive Advanced Directive Care Teams Signal Worker Helper Relationship Specialty Start Date End Date James Maria DO 132 [facility] [place] [address] PCP - General Family Medicine 06/07/18 documented as of this encounter
--- OUTSIDE RECORDS SUMMARY | 2023-07-31 20:26 | External Medical Summary | Summary of Care ---
Author Name Unknown Organization [place] [address] Care Team Providers Care Portfolio Director Name Role Phone James Maria Primary Care Provider Encounter Details Date Type Department Care Team Description 12/02/2021 Scan Encounter Infectious Disease, [place] [address] [place] [address] Wilian Ramos MD [address] [place] [address] <No scans attached> Allergies Active Allergy Reactions [...] 3 08/24/2017 Active Blood Glucose Monitoring Suppl (Top Hand Rodeo Tour VERSumoing) w/Device KITIndications:Type 2 diabetes mellitus with hemoglobin [...] 40 g 1 07/05/2021 Active ReliOn Pen [place] 32G X 4 MM (Insulin Pen Needle)Indications:T [...] Description 12/03/2021 Telemedicine [facility] Wendy Cisneros, BARTOLO 132 [facility] [place] [address] Sara Recinos, Community Health Reshipping Clerk [address] [place] [address] 12/06/2021 Home Visit [facility] Rica Taylor, RN [address] [place] [address] 02/26/2022 Office Visit Podiatry Kylie Burroughs, DPM [address] [place] [address] 03/12/2022 Office Visit Family Medicine James Maria, DO [address] [place] [address] 06/02/2022 Office Visit Cardiology Del Díaz Jr., DO [address] [place] [address] Scheduled Procedures Name Priority Associated Diagnoses Date/Ti [...] on File Type Date Recorded Patient Lead Janitor Expl anation Advanced Directive service a hi [...] Directive Advanced Directive Advanced Directive Care Teams Portfolio Director Relationship Specialty Start Date End Date James Maria DO 132 [facility] [place] [address] PCP - General Family Medicine 06/07/18 documented as of this encounter
--- OUTSIDE RECORDS SUMMARY | 2023-07-31 20:26 | External Medical Summary | Summary of Care ---
Author Name Unknown Organization [place] [address] Care Team Providers Care Payment Processor Name Role Phone James Maria Primary Care Provider Reason for Visit * Reason Onset Date Comments Appointment 11/28/2021 Encounter Details Date Type Department Care Team Description 11/28/2021 Telephone [facility], [place] [address] [place] [address] Services, Scheduling [address] [place] [address] Appointment Allergies Active Allergy Reactions Severity Noted Date Comments Lisinopril Edema face/lips/tongue High 04/05/2018 documented as of this encounter (statuses as of 11/28/2021) Medications Medication Sig Dispensed Refills Start Date [...] 3 08/24/2017 Active Blood Glucose Monitoring Suppl (Skysheet) w/Device KITIndications:Type 2 diabetes mellitus with hemoglobin [...] 40 g 1 07/05/2021 Active ReliOn Pen [place] 32G X 4 MM (Insulin Pen Needle)Indications:T [...] as of this encounter (statuses as of 11/28/2021) Active Problems Problem Noted Date BPH with [...] as of this encounter (statuses as of 11/28/2021) Resolved Problems Problem Noted Date Resolved Date [...] as of this encounter (statuses as of 11/28/2021) Immunizations Name Administration Dates Next Due COVID-19 [...] * Telephone Encounter - MICHEL Carter - 11/28/2021 4:23 PM EST Per provider request, resched appt to telemed for 12/03 at 9/930am, has connectivity, pt/family awareand agreeable. documented in this encounter Plan of Treatment Upcoming Encounters Date Type Specialty Care Team Description 12/03/2021 Telemedicine [facility]os CRNP [facility] [place] [address] Sara Recinos, Community Health Fisheries Technician [address] [place] [address] 12/06/2021 Home Visit [facility] Rica Taylor, RN [address] [place] [address] 02/26/2022 Office Visit Podiatry Kylie Burroughs, REMEDIOS [address] [place] [address] 03/12/2022 Office Visit Family Medicine James Maria, [address] [place] [address] 06/02/2022 Office Visit Cardiology Del Díaz Jr., DO [facility] [place] [address] Scheduled Procedures Name Priority Associated Diagnoses Date/Ti [...] Documents on File Type Date Recorded Patient Roentgenologist Expl anation Advanced Directive service a hi [...] Directive Advanced Directive Advanced Directive Care Teams Payment Processor Relationship Specialty Start Date End Date James Maria DO 132 [facility] [place] [address] PCP - General Family Medicine 06/07/18 documented as of this encounter
--- OUTSIDE RECORDS SUMMARY | 2023-07-31 20:26 | External Medical Summary | Summary of Care ---
Author Name Unknown Organization [place] [address] Care Team Providers Care Supreme Court Judge Name Role Phone James Maria DO Primary Care Provider Reason for Visit * Reason Comments Hospital Follow-Up * Evaluate & Treat - Unlimited Visits (Within 3 days (urgent)) - Closed Specialty Diagnoses / Procedures Referred By Collin leigh Referred To Contact Cardiovascular Medicine / Cardiology Diagnoses Chronic atrial fibrillation (HCC) Hospital discharge follow-up James Maria DO [address] [place] [id number] Referral ID Status Reason Start Date Expiration Date V isits Requested Visits Authorized [id number] Closed Specialty Services Required 11/20/2021 1 1 Encounter Details Date Type Department Care Team Description 11/26/2021 Office Visit Cardiology, [facility] [address] [place] [id number] Del Díaz Jr., DO [facility] [place] [address] Paroxysmal atrial fibrillation (HCC)* Allergies Active Allergy Reactions Severity Noted Date Comments Lisinopril Edema face/lips/tongue High 04/05/2018 documented as of this encounter (statuses as of 11/26/2021) Medications Medication Sig Dispensed Refills Start Date End Date Status Blood Glucose Monitoring Suppl (Photos I Like ULTRA SYSTEM) W/DEVICE KIT Use as directed [...] 40 g 1 07/05/2021 Active ReliOn Pen [place] 32G X 4 MM (Insulin Pen Needle)Indications:T [...] as of this encounter (statuses as of 11/26/2021) Active Problems Problem Noted Date BPH with [...] as of this encounter (statuses as of 11/26/2021) Resolved Problems Problem Noted Date Resolved Date [...] as of this encounter (statuses as of 11/26/2021) Immunizations Name Administration Dates Next Due COVID-19 [...] Sign Reading Time Taken Comments Blood Pressure 108/56 11/26/2021 2:03 PM EST Pulse 62 11/26/2021 2:03 PM EST Temperature 35.7 C (96.3 F) 11/26/2021 2:03 PM ES T Respiratory Rate 12 11/26/2021 2:03 PM EST Oxygen Saturation - - Inhaled Oxygen Concentration - - Weight 84.3 kg (185 lb 14.4 oz) 11/26/2021 2:03 PM EST Height - - Body Mass Index 30.01 11/05/2020 1:15 PM EST documented in this encounter Progress Notes * Del Díaz Jr., DO - 11/26/2021 2:20 PM EST CLINIC NOTES Cardiology, [address] [address] Selvin Sebastian : 1945 Dear James, It was my pleasure to see Mr. Sebastian in-hospital follow-up today November 26, 2021. As you know, he is a very pleasant yet very, very hard of hearing 76-year-old gentleman who presents today in follow-up for paroxysmal atrial fibrillation. He was originally admitted to [facility] for cellulitis and incidentally found to be in atrial fibrillation with rapid ventricular response. Hespontaneously converted on his own and was started on metoprolol and Eliquis. Since discharge the patient his state that he has been doing okay. He still has chronic shortness of breath that hasnot changed at all. He denies any chest pain, palpitations, lightheadedness or dizziness. He has been taking his medications as directed without issue. He has not had any significant bleeding issues with the Eliquis. PAST MEDICAL HISTORY: 1. Paroxysmal atrial fibrillation with a chads Vasc score of 4 2. Moderate aortic stenosis 3. Very hard of hearing 4. Diabetes 5. Hypertension Review of Systems: Pertinent positives as per HPI, comprehensive all system review otherwise negative. Allergies as of 11/26/2021 - Reviewed 11/26/2021 Allergen Reaction Noted Lisinopril Edema face/lips/tongue 04/05/2018 Current Outpatient Medications Medication Sig Dispense Refill Blood Glucose Monitoring Suppl (BootstrapLabs SYSTEM) W/DEVICE KIT Use as directed 4 times a day as needed for Hyperglycemia (high sugar) or Hypoglycemia (low sugar). Use up to four times a day as directed 1 Kit 0 IndexTankTOUCH ULTRA BLUE STRP USE TO CHECK GLUCOSE 4 TIMES DAILY 100 Strip 0 IndexTankTOUCH DELICA LANCETS 33G MISC USE ONE TO CHECK GLUCOSE 4 TIMES DAILY 100 Each 0 Sildenafil Citrate (VIAGRA) 50 MG Tablet Take 1 Tab by mouth as needed for Erectile Dysfunction. 5 Tab 6 Glucose Blood (SwankUCH VERIO) STRP Use up to 4 times a day E11.9 300 Strip 3 Blood Glucose Monitoring Suppl ([employer]) w/Device KIT Use as directed. Recommend check [...] day for three weeks. 40 g 1 ReliOn Pen [place] 32G X 4 MM (Insulin Pen Needle) Use as directed with flexpen 100 Each 6 metFORMIN HCl 1000 MG Oral Tablet (Glucophage) Take 1 Tab by mouth 2 times a day with morning and evening meals. 180 Tab 1 Insulin Syringe-Needle U-100 30G X 5/16" 0.3 ML Use up to 4 x a day for insulin dosing E11.9 3 Each 1 Atorvastatin Calcium 40 MG Oral Tablet (Lipitor) Take 1 Tab by mouth daily. 90 Tab 1 Aspirin EC 81 MG Oral Tablet Delayed Release Take 1 Tab by mouth daily. 100 Tab 1 Tamsulosin HCl 0.4 MG Oral Capsule (Flomax) Take 1 Cap by mouth daily. 90 Cap 0 Insulin NPH Isophane & Regular (70-30) 100 UNIT/ML Subcutaneous Suspension (NovoLIN 70/30) Inject under the skin 2 times a day. 50 units before breakfast and 25 units before supper. 30 mL 5 Eliquis 5 MG Oral Tablet Take 1 Tablet by mouth 2 times a day. 180 Tablet 3 Furosemide 40 MG Oral Tablet (Lasix) Take 1 Tablet by mouth daily. 90 Tablet 3 Metoprolol Tartrate 25 MG Oral Tablet (Lopressor) Take 25 mg by mouth 2 times a day. Cephalexin 500 MG Oral Capsule Take 1 Capsule by mouth 3 times a day for 10 days. 30 Capsule 0 No current facility-administered medications for this visit. PHYSICAL EXAM: Vital Signs: BP 108/56 | Pulse 62 | Temp 35.7 C (96.3 F) (Temporal Artery) | Resp 12 | Wt 84.3 kg (185 lb 14.4 oz) | BMI 30.01 kg/m | BSA 1.98 m General: Awake, alert and oriented x [...] and dry. IMPRESSION: 1. Paroxysmal atrial fibrillation currently normal sinus rhythm on chronic Eliquis anticoagulation 2. 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 Moderate aortic stenosis RECOMMENDATIONS: It was my pleasure to see Mr. Sebastian in-hospital follow-up today. From a cardiac standpoint he is doing well and no further cardiac testing or intervention is necessary at this time. He has not had any symptoms from atrial fibrillation and is tolerating anticoagulation without issue so no changes will be made today. We will plan on seeing him back here in 6 months in follow-up. The patient left the office in good spirits after verbalizing that all of their questions were answered to satisfaction. Prior to their next visit, they were invited to call me with any questions or concerns. Thank you very much for allowing me to participate in the care of your patient. Del Díaz Jr, DO, FAC, FAC Cardiovascular Medicine [facility] This chart was completed in part utilizing Techpacker Speech Voice Recognition Software. Grammatical errors, random [...] documented in this encounter Nursing Notes * Promise Calderón LPN - 11/26/2021 2:00 PM EST Pt here for post hospital visit for Afib while admitted. Does c/o dyspnea documented in this encounter Plan of Treatment Upcoming Encounters Date Type Specialty Care Team Description 11/28/2021 Home Visit [facility] Wendy Cisneros CRNP [address] [place] [address] 12/06/2021 Home Visit [facility] Rica Taylor RN [address] [place] [address] 02/26/2022 Office Visit Podiatry Kylie Burroughs DPM 400 [facility] [place] [address] 03/12/2022 Office Visit Family Medicine James Maria DO [address] [place] [address] 06/02/2022 Office Visit Cardiology Del Díaz Jr., DO [address] [place] [address] Scheduled Orders Name Type Priority Associated Diagnoses Orde r Schedule EKG EKG Routine Paroxysmal atrial fibrillation (HCC) Ordered: 11/26/2021 Scheduled Procedures Name Priority Associated Diagnoses Date/Ti [...] Documents on File Type Date Recorded Patient Port Traffic Manager Expl 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 Directive Advanced Directive Advanced Directive Care Teams Supreme Court Judge Relationship Specialty Start Date End Date James Maria, [address] [place] [address] PCP - General Family Medicine 06/07/18 documented as of this encounter
--- OUTSIDE RECORDS SUMMARY | 2023-07-31 20:26 | External Medical Summary | Summary of Care ---
Author Name Unknown Organization [facility] Address [place] [address] Care Team Providers Care Community Living Coach Name Role Phone Rylan Mariar Sophy Primary Care Provider Reason for Visit * Reason Onset Date Comments [facility]: Maintenance 11/23/2021 Encounter Details Date Type Department Care Team Description 11/23/2021 Scheduled Telephone [facility], [facility] 132 [facility] [place] [address] [facility], Nurse [facility] 132 [facility] [place] [address] Allergies Active Allergy Reactions Severity Noted Date Comments Lisinopril Edema face/lips/tongue High 04/05/2018 documented as of this encounter (statuses as of 11/23/2021) Medications Medication Sig Dispensed Refills Start Date [...] 5 Tab 6 08/24/2017 Active Glucose Blood (SkoovyTOUCH VERIO) STRP Use up to 4 times a day E11.9 300 Strip 3 08/24/2017 Active Blood Glucose Monitoring Suppl (SkoovyTOAgilis Systems) w/Device KITIndications:Type 2 diabetes mellitus with [...] 40 g 1 07/05/2021 Active ReliOn Pen [place] 32G X 4 MM (Insulin Pen Needle)Indications:T [...] as of this encounter (statuses as of 11/23/2021) Active Problems Problem Noted Date BPH with [...] as of this encounter (statuses as of 11/23/2021) Resolved Problems Problem Noted Date Resolved Date [...] as of this encounter (statuses as of 11/23/2021) Immunizations Name Administration Dates Next Due COVID-19 [...] encounter Miscellaneous Notes * Telephone Encounter - Saumya Khan RN - 11/23/2021 8:55 AM EST Phone call placed to pt to follow up with cellulitis. Phone calls placed to both number listed for the pt. No answer at either line. LMOM requesting a return call to [facility] for any needs or concerns. [phone]# given. documented in this encounter Plan of Treatment Upcoming Encounters Date Type Specialty Care Team Description 11/24/2021 Scheduled Telephone [facility] [place], Nurse Macrina Womack [address] [place] [address] 11/26/2021 Office Visit Podiatry Sara Bridges DPM [address] [place] [address] 11/26/2021 Office Visit Cardiology Del Díaz Jr., 132 [place] [address] 11/28/2021 Home Visit [facility] Wendy Cisneros CRNP [address] [place] [address] 12/06/2021 Home Visit [facility] Rica Taylor RN [address] [place] [address] 03/12/2022 Office Visit Family Medicine James Maria, [address] [place] [address] Scheduled Procedures Name Priority Associated Diagnoses Date/Ti [...] Documents on File Type Date Recorded Patient Director Retail Brand Development Expl anation Advanced Directive service a hi [...] Directive Advanced Directive Advanced Directive Care Teams Community Living Coach Relationship Specialty Start Date End Date James Maria, [address] [place] [address] PCP - General Family Medicine 06/07/18 documented as of this encounter
--- OUTSIDE RECORDS SUMMARY | 2023-07-31 20:26 | External Medical Summary | Summary of Care ---
Author Name Unknown Organization [facility] Address [place] [address] Care Team Providers Care Reeler Operator Name Role Phone Rylan Mariar Sophy Primary Care Provider Reason for Visit * Reason Onset Date Comments [facility]: Maintenance 11/24/2021 Encounter Details Date Type Department Care Team Description 11/24/2021 Scheduled Telephone [facility], [facility] 132 [facility] [place] [address] [facility], Nurse [facility] 132 [facility] [place] [address] Allergies Active Allergy Reactions Severity Noted Date Comments Lisinopril Edema face/lips/tongue High 04/05/2018 documented as of this encounter (statuses as of 11/24/2021) Medications Medication Sig Dispensed Refills Start Date [...] 5 Tab 6 08/24/2017 Active Glucose Blood (Training IntelligenceTOUCH VERIO) STRP Use up to 4 times a day E11.9 300 Strip 3 08/24/2017 Active Blood Glucose Monitoring Suppl (Training IntelligenceTOEllevation) w/Device KITIndications:Type 2 diabetes mellitus with hemoglobin [...] 40 g 1 07/05/2021 Active ReliOn Pen [place] 32G X 4 MM (Insulin Pen Needle)Indications:T [...] as of this encounter (statuses as of 11/24/2021) Active Problems Problem Noted Date BPH with [...] as of this encounter (statuses as of 11/24/2021) Resolved Problems Problem Noted Date Resolved Date [...] as of this encounter (statuses as of 11/24/2021) Immunizations Name Administration Dates Next Due COVID-19 [...] Telephone Encounter - Saumya Khan RN - 11/24/2021 9:02 AM EST Call placed to pt for acute follow up. There was no answer. LMOM requesting a return call to [facility] [place], [phone]# given. documented in this encounter Plan of Treatment Upcoming Encounters Date Type Specialty Care Team Description 11/26/2021 Office Visit Podiatry Sara Bridges DPM [address] [place] [address] 11/26/2021 Office Visit Cardiology Del Díaz Jr., DO [address] [place] [address] 11/28/2021 Home Visit [facility] Wendy Cisneros CRNP [address] [place] [address] 12/06/2021 Home Visit [facility] Rica Taylor RN [address] [place] [address] 03/12/2022 Office Visit Family Medicine James Maria, DO [address] [place] [address] Scheduled Procedures Name Priority Associated Diagnoses Date/Ti [...] Documents on File Type Date Recorded Patient Battery Container Tester Aluminum Expl anation Advanced Directive service a hi [...] Directive Advanced Directive Advanced Directive Care Teams Reeler Operator Relationship Specialty Start Date End Date James Maria DO 132 [facility] [place] [address] PCP - General Family Medicine 06/07/18 documented as of this encounter
--- OUTSIDE RECORDS SUMMARY | 2023-07-31 20:26 | External Medical Summary | Summary of Care ---
Author Name Unknown Organization [place] [address] Care Team Providers Care Rehabilitation Counselor Name Role Phone James Maria Primary Care Provider Reason for Visit * Reason Comments [facility]: Acute toc1 Encounter Details Date Type Department Care Team Description 11/22/2021 Home Visit [facility] 132 [facility] [place] [address] Elda Ponce, RN [address] [facility] [place] [address] Allergies Active Allergy Reactions Severity Noted Date Comments Lisinopril Edema face/lips/tongue High 04/05/2018 documented as of this encounter (statuses as of 11/30/2021) Medications Medication Sig Dispensed Refills Start Date [...] 5 Tab 6 7 Active Glucose Blood (SupertecTOUCH VERIO) STRP Use up to 4 times a day E11.9 300 Strip 3 7 Active Blood Glucose Monitoring Suppl (LapSpace) w/Device KITIndications:Typ e 2 diabetes mellitus with [...] 40 g 1 1 Active ReliOn Pen [place] 32G X 4 MM (Insulin Pen Needle)Indications :Type 2 diabetes mellitus with polyneuropathy (HCC) Use as directed with flexpen 100 Each 6 1 Active metFORMIN HCl 1000 MG Oral Tablet (Glucophage)Indica tions:Type 2 diabetes mellitus with hemoglobin A1c goal of less than 7.0% (HCC) Take 1 Tab by mouth 2 times a day with morning and evening meals. 180 Tab 1 1 Active Insulin Syringe-Needle U-100 30G [...] mouth daily. 100 Tab 1 1 Active Tamsulosin HCl 0.4 MG Oral Capsule (Flomax) Take 1 Cap by mouth daily. 90 Cap 0 1 Active Insulin NPH Isophane & Regular (70-30) 100 UNIT/ML Subcutaneous Suspension (NovoLIN 70/30)Indications: Type 2 diabetes mellitus with hemoglobin A1c goal of less than 8.0% (HCC) Inject under the skin 2 times a day. 50 units before breakfast and 25 units before supper. 30 mL 5 2 Active Eliquis 5 MG Oral TabletIndications: Chronic atrial fibrillation (HCC) Take 1 Tablet by mouth 2 times a day. 180 Tablet 3 2 Active Furosemide 40 MG Oral Tablet (Lasix)Indications :Chronic atrial fibrillation (HCC) Take 1 Tablet by mouth daily. 90 Tablet 3 2 Active Metoprolol Tartrate 25 MG Oral Tablet (Lopressor) Take 25 mg by mouth 2 times a day. 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 14 Tab 0 1 022 Discontinued Metoprolol Succinate ER 25 MG Oral Tablet Extended Release 24 Hour (toPROL XL)Indications:Chr onic atrial fibrillation (HCC) Take 1 Tablet by mouth daily. 90 Tablet 5 2 022 Discontinued documented as of this encounter (statuses as of 11/30/2021) Active Problems Problem Noted Date BPH with [...] as of this encounter (statuses as of 11/30/2021) Resolved Problems Problem Noted Date Resolved Date [...] as of this encounter (statuses as of 11/30/2021) Immunizations Name Administration Dates Next Due COVID-19 [...] Sign Reading Time Taken Comments Blood Pressure 114/60 11/22/2021 2:48 PM EST Pulse 64 11/22/2021 2:48 PM EST Temperature 36.9 C (98.4 F) 11/22/2021 2:48 PM ES T Respiratory Rate - - Oxygen Saturation 97% 11/22/2021 2:48 PM EST Inhaled Oxygen Concentration - - Weight - - Height - - Body Mass Index - - documented in this encounter Progress Notes * Elda Ponce RN - 11/22/2021 1:50 PM EST [facility] Corporate Financial AnalystGeospatial Technician Visit Date: 11/22/2021 Time: 1:51 PM Name: Selvin Sebastian : 1945 Situation: francesca 1 Background: Pt d/c from [facility] [place]-new onset a-fib No d/c summary in [facility] has d/c instructions Decided to stay with sister, Jennifer, and her H Pt lives in [place] Pt's lives in [place] Pt is extremely KWIGILLING[place]-need to write on white board to communicate Jennifer is poor historian-not sure why pt is staying with her or what plans are as to if/when going home, not sure of relationship between pt and his Saw pcp 11/20-note reviewed, accompanied pt to pcp visit Took doxycycline x3 days, last dose 11/19- for cellulitis LLE but pt not certain why he was taking it or that he was taking abx Assessment: Has difficulty getting enough blood from fingers to check bsgs-assisted pt x3 to obtain enough blood bsg 140 during visit Insulin changed to 70/30 Using up ''old insulin'' (his previous type) then will start 70/30 Not taking baby asa-advised to buy, agreed to do so Stop Meloxicam apap for pain prn Was to stop amlodipine but was still taking-advised to stop 3x3 R anterior LE wound 3x3, covered with thick scab, no drainage, surrounding skin is wnl, no s/s infection Problems/Symptoms: Review of Systems Constitutional: Negative. HENT: Positive for hearing loss (b/l severe). Eyes: Negative. Respiratory: Positive for shortness of breath (mild PIERCE). Negative for cough. Cardiovascular: Positive for leg swelling (+1 b/l le pitting). Negative for chest pain and palpitations. Gastrointestinal: Negative. Endocrine: Negative. Genitourinary: Negative. Musculoskeletal: Negative. Skin: Negative. Allergic/Immunologic: Negative. Neurological: Negative. Hematological: Negative. Psychiatric/Behavioral: Negative. Physical Exam: BP 114/60 | Pulse 64 | Temp 36.9 C (98.4 F) | SpO2 97% Pain 0 Physical Exam Constitutional: Appearance: Normal appearance. He is normal weight. HENT: Head: Normocephalic and atraumatic. Mouth/Throat: Mouth: Mucous membranes are moist. Cardiovascular: Rate and Rhythm: Normal rate. Rhythm irregular. Pulses: Normal pulses. Heart sounds: Normal heart sounds. Pulmonary: Effort: Pulmonary effort is normal. Breath sounds: Normal breath sounds. Abdominal: General: Bowel sounds are normal. Palpations: Abdomen is soft. Musculoskeletal: General: Normal range of motion. Skin: General: Skin is warm and dry. Capillary Refill: Capillary refill takes less than 2 seconds. Neurological: General: No focal deficit present. Mental Status: He is alert and oriented to person, place, and time. Mental status is at baseline. Treatment/Plan: [facility] Pharmacist referral-?Flukle as ordered When in person, use white board to communicate Over phone, talk with Ck bsgs bid DIABETES: -Blood sugar testing schedule: Twice a [...] a day 5 servings fruit/vegetable per day Home Interventions Provided: Reinforced current Plan of Care, including self-management and medication regimen Updated Exacerbation Plan Patient's Goals of Care: 1. Return home 2. Be healthy Patient's 'Red Flags': 1. sob 2. palpitations 3. Cp Patient Needs to Remember: Call [facility] with red flags Referrals Needed: [facility] and Other pt interested in [employer] [place] Follow Up: Patient encouraged to call the intake phone number for all urgent but not emergent issues. Scheduled to follow up with patient per FRANCESCA schedule. Elda Ponce RN 11/22/2021 1:51 PM documented in this encounter Plan of Treatment Upcoming Encounters Date Type Specialty Care Team Description 12/03/2021 Telemedicine [facility] Wendy Cisneros CRNP [address] [place] [address] Sara Recinos, Community Health Asbestos Microscopist [address] [place] [address] 12/06/2021 Home Visit [facility] Rica Taylor RN [address] [place] [address] 02/26/2022 Office Visit Podiatry Kylie Burroughs DPM [address] [facility] [place], [place] [phone] 03/12/2022 Office Visit Family Medicine James Maria DO 132 [place] [address] 06/02/2022 Office Visit Cardiology Del Díaz Jr., DO [address] [place] [address] Scheduled Procedures Name Priority Associated Diagnoses Date/Ti [...] on File Type Date Recorded Patient Principal Architectural Firm Expl anation Advanced Directive service a hi [...] Directive Advanced Directive Advanced Directive Care Teams Rehabilitation Counselor Relationship Specialty Start Date End Date James Maria DO [address] [place] [address] PCP - General Family Medicine 06/07/18 documented as of this encounter
--- OUTSIDE RECORDS SUMMARY | 2023-07-31 20:26 | External Medical Summary | Summary of Care ---
Author Name Unknown Organization [facility] [place] [address] Care Team Providers Care Minister Name Role Phone James Maria Primary Care Provider Encounter Details Date Type Department Care Team Description 11/30/2021 Orders Only [facility], [place] 132 [facility] [place] [address] Elda Ponce, RN 132 [facility] [place] [address] Type 2 diabetes mellitus with hemoglobin A1c goal of less than 8.0% ([facility])* Allergies Active Allergy Reactions Severity Noted Date Comments Lisinopril Edema face/lips/tongue High 04/05/2018 documented as of this encounter (statuses as of 11/30/2021) Medications Medication Sig Dispensed Refills Start Date End Date Status Blood Glucose Monitoring Suppl (NeurologixTOUCH ULTRA SYSTEM) W/DEVICE KIT Use as directed [...] 5 Tab 6 08/24/2017 Active Glucose Blood (NeurologixTOUCH VERIO) STRP Use up to 4 times a day E11.9 300 Strip 3 08/24/2017 Active Blood Glucose Monitoring Suppl ([email or web address]) w/Device KITIndications:Type 2 diabetes mellitus with hemoglobin [...] 40 g 1 07/05/2021 Active ReliOn Pen [place] 32G X 4 MM (Insulin Pen Needle)Indications:T [...] less than 8.0% ([facility]) Inject under the skin 2 times a [...] [facility] Wendy Cisneros CRNP 132 [facility] [place] [address] Sara Recinos, Community Health Tobacco Acreage Measurer [address] [facility] [address] 12/06/2021 Home Visit [facility] Rica Taylor, RN [address] [place] [address] 02/26/2022 Office Visit Podiatry Kylie Burroughs, REMEDIOS [address] [place] [place] [phone] 03/12/2022 Office Visit Family Medicine James Maria, DO [address] [place] [address] 06/02/2022 Office Visit Cardiology Del Díaz Jr., DO [address] [place] [address] Scheduled Procedures Name Priority Associated Diagnoses Date/Ti [...] Documents on File Type Date Recorded Patient Wet Crown Blocking Operator Expl 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 Directive Advanced Directive Advanced Directive Care Teams Minister Relationship Specialty Start Date End Date James Maria, [address] [place] [address] [place] [address] PCP - General Family Medicine 06/07/18 documented as of this encounter
--- OUTSIDE RECORDS SUMMARY | 2023-07-31 20:26 | External Medical Summary | Summary of Care ---
Author Name Unknown Organization [facility] Address [place] [address] Care Team Providers Care Employment Security Officer Name Role Phone James Maria Primary Care Provider Reason for Visit * Reason Comments Diabetic Foot Care Encounter Details Date Type Department Care Team Description 11/26/2021 Office Visit Podiatry [facility] [address] [place] [address] aSra Bridges DPM [address] [place] [address] Onychomycosis*; DM type 2 with diabetic peripheral neuropathy (HCC); Corns and callosities Allergies Active Allergy Reactions Severity Noted Date Comments Lisinopril Edema face/lips/tongue High 04/05/2018 documented as of this encounter (statuses as of 11/26/2021) Medications Medication Sig Dispensed Refills Start Date End Date Status Blood Glucose Monitoring Suppl (140FireTOUCH ULTRA SYSTEM) W/DEVICE KIT Use as directed [...] 5 Tab 6 08/24/2017 Active Glucose Blood (140FireTOUCH VERIO) STRP Use up to 4 times a day E11.9 300 Strip 3 08/24/2017 Active Blood Glucose Monitoring Suppl ([employer]) w/Device KITIndications:Type 2 diabetes mellitus with hemoglobin [...] 40 g 1 07/05/2021 Active ReliOn Pen [place] 32G X 4 MM (Insulin Pen Needle)Indications:T [...] as of this encounter Progress Notes * Sara Bridges, REMEDIOS - 11/26/2021 10:39 AM EST Podiatry Established Note [facility] Name: Selvin Sebastian : 1945 Date: 11/26/2021 REASON FOR VISIT: diabetic foot care SUBJECTIVE: This patient is a 76 year old male who presents today accompanied by his . He is very hard of hearing and she helps communicate with white board. He denies pain or any issues. FBS notreported. He does have neuropathy. His left third toe is cocked upwards. He has extremely dry skin to the left foot. Past Medical History: Diagnosis Date Allergic rhinitis [...] the joints SKIN/INTEGUMENTARY: No rash and No itching FOCUSED PODIATRIC EXAM: Vitals: There were no vitals filed for this visit. General: Normal mood and affect. No apparent distress. Vascular: Pedal pulses palpable including dorsalis pedis and posterior tibial artery at 2/4 bilaterally. Capillary refill time is within normal limits to all toes. No edema noted. No warmth. Neurologic: Sensation (light touch) intact to the bilateral lower extremities. No hypersensitivity. No weakness. No tremor. Musculoskeletal: He denies pain with palpation of either foot. The left third toe is somewhat shorted and contractedat the MPJ. Dermatological: Toenails 1-5 bilaterally are thickened and elongated as well as discolored. No interdigital changes. There is a corn to the dorsal aspect of the left 4th toe. Peeling skin to the left foot. DIAGNOSTIC STUDIES: None ASSESSMENT: 1. Onychomycosis TA T1 T2 T3 T4 T5 T6 T7 T8 T9 2. Corns and callosities x 1 left 4th toe 3. DM type 2 with diabetic peripheral neuropathy (HCC) 4. History of foot surgery PLAN: Procedure: After prepping the area with alcohol and allowing to dry, the hyperkeratotic lesion to the left 4thtoe was sharply pared of all hyperkeratotic skin without incident. This was performed with a #15 blade. An electrical umbrella bur was used to reduce any remaining edges. Patient tolerated well and noted improvement following procedure. Procedure: After mild cleansing and drying of feet, toenails 1-5 bilaterally were manually and mechanically debrided without incident. A nail splitter was used to remove all incurvating edges. A granite cutter was used to trim nail to appropriate length. An electrical bur was used in a side to side motion to reduce nail thickness, hypertrophic growth, and to smooth all edges. Patient tolerated well. They noted improvement following procedure. Instructed pt to wash his feet with soap and water. Follow up: 3 mo Sara Bridges DPM documented in this encounter Nursing Notes * Celeste Huber LPN - 11/26/2021 10:20 AM EST Pt presents with his for routine diabetic foot care, no pain in feet. BSG 69, 70 and 80 this morning. documented in this encounter Plan of Treatment Upcoming Encounters Date Type Specialty Care Team Description 11/26/2021 Office Visit Cardiology Arjun Nielsen, Del Gann DO 132 [facility] [place] [address] 11/28/2021 Home Visit [facility] Wendy Cisneros CRNP 132 [facility] [place] [address] 12/06/2021 Home Visit [facility] Rica Taylor RN 132 [facility] [place] [address] 02/26/2022 Office Visit Podiatry Kylie Burroughs DPM [address] [place] [address] [place] [address] 03/12/2022 Office Visit Family Medicine James Maria, DO [address] [place] [address] Scheduled Procedures Name Priority Associated Diagnoses Date/Ti [...] with neurological manifestations, not stated as uncontrolled Corns and callosities documented in this encounter Advance Directives Documents on File Type Date Recorded Patient Union Laborer Expl 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 Directive Advanced Directive Advanced Directive Care Teams Employment Security Officer Relationship Specialty Start Date End Date James Maria DO 132 [facility] [place] [address] PCP - General Family Medicine 06/07/18 documented as of this encounter
--- OUTSIDE RECORDS SUMMARY | 2023-07-31 20:26 | External Medical Summary | Summary of Care ---
Author Name Unknown Organization [facility] Address [place] [address] Care Team Providers Care Functional Manager Name Role Phone James Maria DO Primary Care Provider Encounter Details Date Type Department Care Team Description 11/30/2021 Scan Encounter Family Practice [facility] [address] [place] [id number] [facility] [place] [address] <No scans attached> Allergies Active Allergy Reactions [...] 3 08/24/2017 Active Blood Glucose Monitoring Suppl (CrayonPixel) w/Device KITIndications:Type 2 diabetes mellitus with hemoglobin [...] 40 g 1 07/05/2021 Active ReliOn Pen [place] 32G X 4 MM (Insulin Pen Needle)Indications:T [...] [facility] Wendy Cisneros CRNP 132 [facility] [place] [address] Sara Recinos, Community Health Sales Demonstrator [address] [facility] [place] [address] 12/06/2021 Home Visit [facility] Rica Taylor, RN [address] [place] [address] 02/26/2022 Office Visit Podiatry Kylie Burroughs, DPM [address] [place] [address] 03/12/2022 Office Visit Family Medicine James Maria, DO [address] [place] [address] 06/02/2022 Office Visit Cardiology Del Díaz Jr., DO [address] [place] [address] Scheduled Procedures Name Priority Associated Diagnoses Date/Ti [...] Documents on File Type Date Recorded Patient Analytical Statistician Expl anation Advanced Directive service a hi [...] Directive Advanced Directive Advanced Directive Care Teams Functional Manager Relationship Specialty Start Date End Date James Maria DO 132 [facility] [place] [address] PCP - General Family Medicine 06/07/18 documented as of this encounter
--- OUTSIDE RECORDS SUMMARY | 2023-07-31 20:27 | External Medical Summary | Summary of Care ---
Author Name Unknown Organization [facility] Address [place] [address] Care Team Providers Care Fourdrinier Wire Weaver Name Role Phone James Maria DO Primary Care Provider Encounter Details Date Type Department Care Team Description 11/11/2021 Orders Only Family Practice [facility] [address] [place] [phone] James [facility] DO [facility] [place] [address] Allergies Active Allergy Reactions Severity Noted Date Comments Lisinopril Edema face/lips/tongue High 04/05/2018 documented as of this encounter (statuses as of 11/11/2021) Medications Medication Sig Dispensed Refills Start Date [...] 3 08/24/2017 Active Blood Glucose Monitoring Suppl ([employer]) w/Device KITIndications:Type 2 diabetes mellitus with hemoglobin A1c goal of 7.0%-8.0% (HCC) Use as directed. Recommend check glucose levels at least 2 times daily-once in AM before breakfast and once 2 hours after evening meal. 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 30 Tab 0 02/19/2021 Active Silver sulfADIAZINE 1 % External Cream (Silvadene) Apply topically to affected area daily. Apply to to the left foot ulcer once daily. Cover with dry dressing. Perform once daily. 50 g 1 04/17/2021 Active Amoxicillin-Pot Clavulanate 875-125 MG Oral Tablet (Augmentin) Take 1 Tab by mouth 2 times a day. 14 Tab 0 05/31/2021 Active Fluorouracil 5 % External Cream (Efudex) Apply to Scalp, ears, and temples twice a day for three weeks. 40 g 1 07/05/2021 Active ReliOn Pen [place] 32G X 4 MM (Insulin Pen Needle)Indications:T [...] mouth daily. 100 Tab 1 09/05/2021 Active amLODIPine Besylate 5 MG Oral Tablet (Norvasc) Take 1 Tab by mouth daily. 90 Tab 1 09/05/2021 Active Tamsulosin HCl 0.4 MG Oral Capsule (Flomax) Take 1 Cap by mouth daily. 90 Cap 0 09/05/2021 Active Insulin Regular Human 100 UNIT/ML Injection Solution (NovoLIN R ReliOn)Indications:T ype 2 diabetes mellitus with polyneuropathy (HCC) INJECT 5 UNITS SUBCUTANEOUSLY THREE TIMES DAILY BEFORE MEALS 30 mL 1 10/14/2021 Active Insulin NPH (Human) (Isophane) 100 UNIT/ML Subcutaneous Suspension (NovoLIN N ReliOn)Indications:T ype 2 diabetes mellitus with polyneuropathy (HCC) Inject 35 Units under the skin at bedtime. 12 Each 1 10/14/2021 Active documented as of this encounter (statuses as of 11/11/2021) Active Problems Problem Noted Date BPH with [...] as of this encounter (statuses as of 11/11/2021) Resolved Problems Problem Noted Date Resolved Date [...] as of this encounter (statuses as of 11/11/2021) Immunizations Name Administration Dates Next Due COVID-19 [...] Office Visit Podiatry Sara Bridges DPM 132 [facility] [place] [address] 03/12/2022 Office Visit Family Medicine James Maria, [address] [place] [address] Scheduled Procedures Name Priority Associated Diagnoses Date/Ti me COLONOSCOPY FLEXIBLE PROXIMA L DIAGNOSTIC Recall Encounter for screening colonoscopy Health Maintenance Due Date Last Done Comments Yearly B-12 11/16/2020 11/16/2019, 01/11/2018 Depression Screening, Annual for Pts 12 and Over 11/21/2020 11/21/2019 DIABETES-URINE MICROALBUMIN EVERY 12 MONTHS 03/13/2021 03/13/2020, 12/13/2018, 01/11/2018, [...] Procedure Name Priority Date/Time Associated Diagnosis Comments XR CHEST 1 VIEW Routine 11/08/2021 CHEMISTRY-OUTSIDE Routine 11/08/2021 TSH Routine 11/08/2021 documented in this encounter Results * TSH (11/08/2021) TSH - OUTSIDE LAB 2.020 0.300 - 4.500 UIU/ML OUTSIDE LAB (SEE SCANNED REPORT) Specimen Blood - Venous blood specime n (specimen) Narrative OUTSIDE LAB (SEE SCANNED REPORT) * CHEMISTRY-OUTSIDE (11/08/2021) CREATININE-OUTSIDE LAB 1.32 0.6 - 1.4 MG/DL OUTSIDE LAB (SEE SCANNED REPORT) EGFR-OUTSIDE LAB 52.0 ML/MIN OUTSIDE LAB (SEE SCANNED REPORT) POTASSIUM-OUTSIDE LAB 4.3 3.5 - 5.1 MMOL/L OUTSIDE LAB (SEE SCANNED REPORT) GLUCOSE-OUTSIDE LAB 497(A) 70 - 99 MG/DL OUTSIDE LAB (SEE SCANNED REPORT) HOURS FASTING OUTSIDE LAB (S EE SCANNED REPORT) TRIGLYCERIDES-OUTSIDE LAB OUTSIDE LAB (SEE SCANNED REPORT) CHOLESTEROL-OUTSIDE LAB OUTSIDE LAB (SEE SCANNED REPORT) HDL-OUTSIDE LAB OUTSIDE LAB (SEE SCANNED REPORT) CHOL/HDL RATIO-OUTSIDE LAB OUTSIDE LAB (SEE SCANNED REPORT) LDL (CALCULATED)-OUTSIDE LAB OUTSIDE LAB (SEE SCANNED REPORT) LDL (DIRECT MEASURE)-OUTSIDE LAB OUTSIDE LAB (SEE SCANNED REPORT) HEMOGLOBIN, [id number] LAB OUTSIDE LAB (SEE SCANNED REPORT) PHOSPHORUS-OUTSIDE LAB OUTSIDE LAB (SEE SCANNED REPORT) PTH-OUTSIDE LAB OUTSIDE LAB (SEE SCANNED REPORT) MICROALBUMIN RATIO-OUTSIDE LAB OUTSIDE LAB (SEE SCANNED REPORT) PROTEIN, UA-OUTSIDE LAB OUTSIDE LAB (SEE SCANNED REPORT) HEMOGLOBIN-OUTSIDE LAB 13.3(A) 14.0 - 18.0 G/DL OUTSIDE LAB (SEE SCANNED REPORT) CHEMISTRY COMMENT-OUTSIDE LAB Comment:SEE SCAN - CBC,CHEM,MAG,TR OPONIN,LIPASE,M RSA NASAL SCREEN OUTSIDE LAB (SEE SCANNED REPORT) Specimen Narrative OUTSIDE LAB (SEE SCANNED REPORT) * XR CHEST 1 VIEW (11/08/2021) Anatomical Region Laterality Modality Chest Other Specimen Narrative OUTSIDE LAB (SEE SCANNED REPORT) documented in this encounter Advance Directives Documents on File Type Date Recorded Patient Performance Specialist Expl 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 Directive Advanced Directive Advanced Directive Care Teams Fourdrinier Wire Weaver Relationship Specialty Start Date End Date James Maria DO 132 [facility] [place] [phone] PCP - General Family Medicine 06/07/18 documented as of this encounter
--- OUTSIDE RECORDS SUMMARY | 2023-07-31 20:27 | External Medical Summary | Summary of Care ---
Author Name Unknown Organization [facility] Address [place] [address] Care Team Providers Care Flosser Name Role Phone James Maria DO Primary Care Provider Encounter Details Date Type Department Care Team Description 11/16/[address] [facility] [address] [place] [id number] [facility] DO [facility] [place] [address] <No scans attached> Allergies Active Allergy Reactions Severity Noted Date Comments Lisinopril Edema face/lips/tongue High 04/05/2018 documented as of this encounter (statuses as of 11/20/2021) Medications Medication Sig Dispensed Refills Start Date [...] 3 08/24/2017 Active Blood Glucose Monitoring Suppl (Triviala) w/Device KITIndications:Type 2 diabetes mellitus with hemoglobin [...] 40 g 1 07/05/2021 Active ReliOn Pen [place] 32G X 4 MM (Insulin Pen Needle)Indications:T [...] as of this encounter (statuses as of 11/20/2021) Active Problems Problem Noted Date BPH with [...] as of this encounter (statuses as of 11/20/2021) Resolved Problems Problem Noted Date Resolved Date [...] as of this encounter (statuses as of 11/20/2021) Immunizations Name Administration Dates Next Due COVID-19 [...] Encounters Date Type Specialty Care Team Description 11/20/2021 Office Visit Family Medicine James Maria DO 132 [facility] [place] [address] 11/26/2021 Office Visit Podiatry Sara Bridges DPM [address] [place] [address] 03/12/2022 Office Visit Family Medicine James Maria DO [address] [place] [address] Scheduled Procedures Name Priority Associated Diagnoses Date/Ti [...] Documents on File Type Date Recorded Patient Specialist Managers Expl anation Advanced Directive service a hi [...] Directive Advanced Directive Advanced Directive Care Teams Flosser Relationship Specialty Start Date End Date James Maria DO 132 [facility] [place] [address] PCP - General Family Medicine 06/07/18 documented as of this encounter
--- OUTSIDE RECORDS SUMMARY | 2023-07-31 20:27 | External Medical Summary | Summary of Care ---
Author Name Unknown Organization [facility] Address [place] [address] Care Team Providers Care Pipe Coverer Helper Name Role Phone Yariel Mariavor Sophy Primary Care Provider Reason for Visit * Reason Onset Date Comments [facility]: Enrollment 11/20/2021 Encounter Details Date Type Department Care Team Description 11/20/2021 Telephone [facility] [address] [facility] [place] [address] [facility], Nurse [facility] [address] [facility] [place] [address] [facility]: Enrollment Allergies Active Allergy Reactions Severity Noted Date [...] 5 Tab 6 08/24/2017 Active Glucose Blood (Hi-Lo LodgeTOUCH VERIO) STRP Use up to 4 times a day E11.9 300 Strip 3 08/24/2017 Active Blood Glucose Monitoring Suppl (Hi-Lo LodgeTOMontage Studio VERIO) w/Device KITIndications:Type 2 diabetes mellitus with [...] once daily 90 Tab 0 01/31/2021 Active Silver sulfADIAZINE 1 % External Cream [...] 40 g 1 07/05/2021 Active ReliOn Pen [place] 32G X 4 MM (Insulin Pen Needle)Indications:T [...] daily. 90 Tablet 3 11/20/2021 Active Metoprolol Succinate ER 25 MG Oral Tablet Extended Release 24 Hour (toPROL XL)Indications:Chron ic atrial fibrillation (HCC) Take 1 Tablet by mouth daily. 90 Tablet 5 11/20/2021 Active documented as of this encounter [...] encounter Miscellaneous Notes * Telephone Encounter - Rani Knott RN - 11/20/2021 3:46 PM EST Thank you ! * Telephone Encounter - Tawana Williamson LPN - 11/20/2021 2:54 PM EST Selvin Sebastian was referred as a potential candidate for enrollment in the [facility] for [facility] by: PCP. A review of this chart was completed and Selvin is a candidate for Home Based Medical Care. Lots of med changes Patient/ not good with meds Patient VERY hard of hearing-mostly communicates with white board Will possibly need SW and ARABELLA involved as well Requesting visit for enrollment as soon as possible Spoke with Selvin about [facility] and the benefits of enrolling in the model of care and he agrees to enroll at this time. Requests afternoon visits Scheduled as follows: Elda Ponce: 11/22 130pm Wendy Cisneros: 11/28 3pm Rica Taylor: 12/06 230pm documented in this encounter Plan of Treatment Upcoming Encounters Date Type Specialty Care Team Description 11/22/2021 Home Visit [facility] Elda Ponce RN [address] [place] [address] 11/26/2021 Office Visit Podiatry Sara Bridges DPM [address] [place] [address] 11/28/2021 Home Visit [facility] Wendy Cisneros CRNP [address] [place] [address] 12/06/2021 Home Visit [facility] Rica Taylor RN [address] [place] [address] 03/12/2022 Office Visit Family Medicine James Maria, 132 [facility] [place] [address] Scheduled Procedures Name Priority Associated Diagnoses Date/Ti [...] Documents on File Type Date Recorded Patient Delivery Table Operator Expl 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 Directive Advanced Directive Advanced Directive Care Teams Pipe Coverer Helper Relationship Specialty Start Date End Date James Maria, 132 [facility] [place] [address] PCP - General Family Medicine 06/07/18 documented as of this encounter
--- OUTSIDE RECORDS SUMMARY | 2023-07-31 20:27 | External Medical Summary | Summary of Care ---
Author Name Unknown Organization [facility] [place] [address] Care Team Providers Care Nip Wrapper Name Role Phone James Maria DO Primary Care Provider Reason for Referral * Evaluate & Treat - Unlimited Visits (Within 3 days (urgent)) - Authorized Specialty Diagnoses / Procedures Referred By Collin leigh Referred To Contact Cardiovascular Medicine / Cardiology Diagnoses Chronic atrial fibrillation (HCC) Hospital discharge follow-up James Maria DO [address] [place] [address] Referral ID Status Reason Start Date Expiration Date Visits Requested Visits Authorized [id number] Authorized Specialty Services Required 11/20/2021 1 1 Question Answer Referral Priority Within 3 days (urgent) To which of the following clinics are you referring your patient? General Cardiology Clinic Reason for Visit * Reason Comments Hospital Follow-Up Was dizzy last night . Encounter Details Date Type Department Care Team Description 11/20/2021 Office Visit Family [facility] [address] [place] [address] James Maria DO [address] [place] [address] Hospital discharge follow-up*; Chronic atrial fibrillation (HCC); Type 2 diabetes mellitus with polyneuropathy (HCC); Type 2 diabetes mellitus with hemoglobin A1c goal of less than 8.0% (HCC); Dyslipidemia; HTN, goal below 130/80 Allergies Active Allergy Reactions Severity Noted Date Comments Lisinopril Edema face/lips/tongue High 04/05/2018 documented as of this encounter (statuses as of 11/20/2021) Medications Medication Sig Dispensed Refills Start Date End Date Status Blood Glucose Monitoring Suppl ([employer] ULTRA SYSTEM) W/DEVICE KIT Use as directed [...] Tab 6 08/24/20 17 Active Glucose Blood (CreditPing.comTOUCH VERIO) STRP Use up to 4 times a day E11.9 300 Strip 3 08/24/20 17 Active Blood Glucose Monitoring Suppl (PhantomUCH VERIO) w/Device KITIndications:Typ e 2 diabetes mellitus with hemoglobin A1c goal of 7.0%-8.0% ([facility]) Use as directed. Recommend check glucose levels at least 2 times daily-once in AM before breakfast and once 2 hours after evening meal. 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 Apply to to the left foot ulcer once daily. Cover with dry dressing. Perform once daily. 50 g 1 04/17/20 21 Active Amoxicillin-Pot Clavulanate 875-125 MG Oral Tablet (Augmentin) Take 1 Tab by mouth 2 times a day. 14 Tab 0 05/31/20 21 Active Fluorouracil 5 % External Cream (Efudex) Apply to Scalp, ears, and temples twice a day for three weeks. 40 g 1 07/05/20 21 Active ReliOn Pen [place] 32G X 4 MM (Insulin Pen Needle)Indications :Type 2 diabetes mellitus with polyneuropathy (HCC) Use as directed with flexpen 100 Each 6 09/05/20 21 Active metFORMIN HCl 1000 MG Oral Tablet (Glucophage)Indica tions:Type 2 diabetes mellitus with hemoglobin A1c goal of less than 7.0% (HCC) Take 1 Tab by mouth 2 times a day with morning and evening meals. 180 Tab 1 09/05/20 21 Active Insulin Syringe-Needle U-100 30G X 5/16" 0.3 MLIndications:Type 2 diabetes mellitus with polyneuropathy (HCC),Type 2 diabetes mellitus with hemoglobin A1c goal of less than 8.0% (HCC) Use up to 4 x a day for insulin dosing E11.9 3 Each 1 09/05/20 Active Atorvastatin Calcium 40 MG Oral Tablet (Lipitor) Take 1 Tab by mouth daily. 90 Tab 1 09/05/20 21 Active Aspirin EC 81 MG Oral Tablet Delayed ReleaseIndications :Type 2 diabetes mellitus with diabetic neuropathy, with long-term current use of insulin ([facility]) Take 1 Tab by mouth daily. 100 Tab 1 09/05/20 21 Active Tamsulosin HCl 0.4 MG Oral Capsule (Flomax) Take 1 Cap by mouth daily. 90 Cap 0 09/05/20 21 Active Insulin NPH Isophane & Regular (70-30) 100 UNIT/ML Subcutaneous Suspension (NovoLIN 70/30)Indications: Type 2 diabetes mellitus with hemoglobin A1c goal of less than 8.0% (HCC) Inject under the skin 2 times a day. 50 units before breakfast and 25 units before supper. 30 mL 11/20/19 22 Active Eliquis 5 MG Oral TabletIndications: Chronic atrial fibrillation (HCC) Take 1 Tablet by mouth 2 times a day. 180 Tablet 3 11/20/19 22 Active Furosemide 40 MG Oral Tablet (Lasix)Indications :Chronic atrial fibrillation (HCC) Take 1 Tablet by mouth daily. 90 Tablet 11/20/19 22 Active Metoprolol Succinate ER 25 MG Oral Tablet Extended Release 24 Hour (toPROL XL)Indications:Chr onic atrial fibrillation (HCC) Take 1 Tablet by mouth daily. 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 30 Tab 0 02/20/20 21 022 Discontinued amLODIPine Besylate 5 MG Oral Tablet (Norvasc) Take 1 Tab by mouth daily. 90 Tab 1 09/05/20 21 022 Discontinued Insulin Regular Human 100 UNIT/ML Injection Solution (NovoLIN R ReliOn)Indications :Type 2 diabetes mellitus with polyneuropathy (HCC) INJECT 5 UNITS SUBCUTANEOUSLY THREE TIMES DAILY BEFORE MEALS 30 mL 1 10/14/20 21 022 Discontinued Insulin NPH (Human) (Isophane) 100 UNIT/ML Subcutaneous Suspension (NovoLIN N ReliOn)Indications :Type 2 diabetes mellitus with polyneuropathy (HCC) Inject 35 Units under the skin at bedtime. 12 Each 1 10/14/20 21 022 Discontinued Eliquis 5 MG Oral Tablet Take 5 mg by mouth 2 times a day. 0 11/12/19 22 022 Discontinued(Re fill) documented as of [...] Sign Reading Time Taken Comments Blood Pressure 112/66 11/20/2021 1:29 PM EST Pulse 60 11/20/2021 1:29 PM EST Temperature 36.5 C (97.7 F) 11/20/2021 1:29 PM ES T Respiratory Rate 18 11/20/2021 1:29 PM EST Oxygen Saturation 98% 11/20/2021 1:29 PM EST Inhaled Oxygen Concentration - - Weight 82 kg (180 lb 11.2 oz) 11/20/2021 1:29 PM EST Height - - Body Mass Index 29.17 11/05/2020 1:15 PM EST documented in this encounter Progress Notes * James Maria, DO - 11/20/2021 1:47 PM EST Assessment and plan Hospital discharge Extensive education was given to the patient and his through verbal and written means. We willattempt to set up getting her at home for the patient to ensure that there is follow through for him in regards to his poor understanding of his health care. I am concerned that his lack of understanding of his medical conditions and medication will limit our ability to effectively treat him. Chronic atrial fibrillation (HCC) Will order through mail order, patient has enough supply to last him until that should arrive. Educated on bleeding risk and need to pursue emergency follow-up should he have a fall or head injury - Eliquis 5 MG Oral Tablet; Take 1 Tablet by mouth 2 times a day. - CARDIOLOGY REFERRAL OP Type 2 diabetes mellitus with polyneuropathy (HCC) Will be switching to 70 30 insulin, ordered through mail order, dose twice daily. This was written down for the patient as well. Type 2 diabetes mellitus with hemoglobin A1c goal of less than 8.0% (HCC) Dyslipidemia HTN, goal below 130/80 Amlodipine was stopped and metoprolol was started for hypertension and rate control Follow up Follow-up: Return in about 3 months (around 02/18/2022). | Check-out note: 2-4 week f/u with [facility] (per discharge summary) Every other with AKASH Montano Selvin Bereket Jaz is a 76 year old male that presents for Hospital Follow-Up (Was dizzy last night. ) Patient presents today in follow-up from hospitalization for new onset atrial fibrillation. Patientis doing better, and has much less swelling with a controlled heart rate. That being said, the patient continues to display very poor understanding of his health, let alone the reason for his hospitalization. His hearing is very poor, and most of the discussion takes place through writing on a pad and paper or discussing with his . Medications were changed during the hospitalization and we will review those to get day together and make sure that he understands the new regimen. Despite time spent with the patient in past foot stopping the plan of action, he has often times return to clinicdisplaying no awareness of the medications that he should be taking on a daily basis. Has evidence of this, despite his prescribed insulin dosing, he asks today how many times per day he is supposed to be taking his insulin. A1c during his hospitalization was 11. Patient was advised to follow up with Cardiology within a couple of weeks of his discharge, nothing has been set up yet. Objective BP 112/66 | Pulse 60 | Temp 36.5 C (97.7 F) (Tympanic) | Resp 18 | Wt 82 kg (180 lb 11.2 oz) | SpO2 98% | BMI 29.17 kg/m | BSA 1.95 m Body mass index is 29.17 kg/m. BP Readings from Last 3 Encounters: 11/20/21 112/66 09/05/21 116/78 02/28/21 116/58 Wt Readings from Last 3 Encounters: 11/20/21 82 kg (180 lb 11.2 oz) 09/05/21 78 kg (171 lb 14.4 oz) 02/28/21 78.1 kg (172 lb 4 oz) Physical Exam Constitutional: Appearance: Normal appearance. HENT: Head: Normocephalic and atraumatic. Eyes: Extraocular Movements: Extraocular movements intact. Pupils: Pupils are equal, round, and reactive to light. Musculoskeletal: Right lower le+ Pitting Edema present. Left lower le+ Pitting Edema present. Neurological: General: No focal deficit present. Mental Status: He is alert and oriented to person, place, and time. Psychiatric: Mood and Affect: Mood normal. Behavior: Behavior normal. Total time today including reviewing chart before the visit, pertinent labs, imaging reports, face to face time, and documentation time was 45 minutes. The above was discussed and understanding was expressed. James Maria DO documented in this encounter Nursing Notes * Vivian Lassiter RN - 11/20/2021 1:36 PM EST The patient has been properly identified by confirmation of name and date of . Chief Complaint Patient presents with Hospital Follow-Up Was dizzy last night. documented in this encounter Plan of Treatment Upcoming Encounters Date Type Specialty Care Team Description 11/26/2021 Office Visit Podiatry Sara Bridges, [facility] [address] [place] [address] 03/12/2022 Office Visit Family Medicine James Maria DO [address] [place] [address] Scheduled Procedures Name Priority Associated Diagnoses Date/Ti me COLONOSCOPY FLEXIBLE PROXIMA L DIAGNOSTIC Recall Encounter for screening colonoscopy Scheduled Referrals Name Type Priority Associated Diagnoses Orde r Schedule CARDIOLOGY REFERRAL OP Referral Within 3 days (urgent) Chronic atrial fibrillation (HCC) Hospital discharge follow-up Ordered: 11/20/2021 Health Maintenance Due Date Last Done Comments [...] Hospital discharge follow-up- Primary Other follow-up examination Chronic atrial fibrillation (HCC) Atrial fibrillation Type 2 diabetes mellitus with polyneuropathy (HCC) Type II or unspecified type diabetes mellitus with neurological manifestations, not stated as uncontrolled Type 2 diabetes mellitus with hemoglobin A1c goal of less than 8.0% (HCC) Dyslipidemia Other and unspecified hyperlipidemia HTN, goal below 130/80 Unspecified essential hypertension documented in this encounter Advance Directives Documents on File Type Date Recorded 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
--- OUTSIDE RECORDS SUMMARY | 2023-07-31 20:27 | External Medical Summary | Summary of Care ---
Author Name Unknown Organization [facility] Address [place] [address] Care Team Providers Care Medical Billing Specialist Name Role Phone James Maria DO Primary Care Provider Encounter Details Date Type Department Care Team Description 11/08/2021 Scan Encounter Family Practice [facility] [address] [place] [id number] [facility] DO [facility] [place] [address] <No scans attached> Allergies Active Allergy Reactions [...] 3 08/24/2017 Active Blood Glucose Monitoring Suppl ([place]) w/Device KITIndications:Type 2 diabetes mellitus with hemoglobin [...] 40 g 1 07/05/2021 Active ReliOn Pen [place] 32G X 4 MM (Insulin Pen Needle)Indications:T [...] Office Visit Podiatry Sara Bridges DPM 132 [facility] [place] [address] 03/12/2022 Office Visit Family Medicine James Maria, [address] [place] [address] Scheduled Procedures Name Priority Associated Diagnoses Date/Ti [...] Documents on File Type Date Recorded 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
--- OUTSIDE RECORDS SUMMARY | 2023-07-31 20:27 | External Medical Summary | Summary of Care ---
Author Name Unknown Organization [facility] Address [place] [address] Care Team Providers Care Event Management Consultant Name Role Phone James Maria DO Primary Care Provider Encounter Details Date Type Department Care Team Description 11/09/2021 Scan Encounter Family Practice [facility] [address] [place] [phone] [facility] DO [facility] [place] [address] <No scans attached> Allergies Active Allergy Reactions [...] 3 08/24/2017 Active Blood Glucose Monitoring Suppl (LeCab) w/Device KITIndications:Type 2 diabetes mellitus with hemoglobin [...] 40 g 1 07/05/2021 Active ReliOn Pen [place] 32G X 4 MM (Insulin Pen Needle)Indications:T [...] Office Visit Podiatry Sara Bridges DPM 132 [facility] [place] [address] 03/12/2022 Office Visit Family Medicine James Maria, [address] [place] [address] Scheduled Procedures Name Priority Associated Diagnoses Date/Ti [...] Documents on File Type Date Recorded 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
--- OUTSIDE RECORDS SUMMARY | 2023-07-31 20:27 | External Medical Summary | Summary of Care ---
Author Name Unknown Organization [facility] Address [place] [address] Care Team Providers Care Microbiological Laboratory Technician Name Role Phone James Maria DO Primary Care Provider Encounter Details Date Type Department Care Team Description 11/08/2021 Scan Encounter Family Practice [facility] [address] [place] [id number] [facility] DO [facility] [place] [address] <No scans attached> Allergies Active Allergy Reactions [...] 3 08/24/2017 Active Blood Glucose Monitoring Suppl (CloudSync) w/Device KITIndications:Type 2 diabetes mellitus with hemoglobin [...] 40 g 1 07/05/2021 Active ReliOn Pen [place] 32G X 4 MM (Insulin Pen Needle)Indications:T [...] Office Visit Podiatry Sara Bridges DPM 132 [facility] [place] [address] 03/12/2022 Office Visit Family Medicine James Maria, [address] [place] [address] Scheduled Procedures Name Priority Associated Diagnoses Date/Ti [...] Documents on File Type Date Recorded 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
--- OUTSIDE RECORDS SUMMARY | 2023-07-31 20:27 | External Medical Summary | Summary of Care ---
Author Name Unknown Organization [place] [address] Care Team Providers Care Quality Control Engineer Name Role Phone James Maria DO Primary Care Provider Reason for Referral * Evaluate & Treat - Unlimited Visits (Within 24 hrs (call dept; emergent)) - Authorized Specialty Diagnoses / Procedures Referred By Collin leigh Referred To Contact HOME CARE / [facility] Diagnoses Congestive heart failure (CHF) (HCC) Type 2 diabetes mellitus with hemoglobin A1c goal of less than 8.0% (HCC) HTN, goal below 130/80 Mixed conductive and sensorineural hearing loss of right ear with restricted hearing of left ear James Maria DO [address] [place] [address] Referral ID Status Reason Start Date Expiration Date Visits Requested Visits Authorized [id number] Authorized Specialty Services Required 11/20/2021 1 1 Question Answer Referral Priority Within 24 hrs (call dept; emergent) Does patient have multiple co-morbid conditions? Yes Does patient have GHP insurance? Yes Comments Currently staying with his sister: [address] [place] [address] Farhana Cell phone number [phone] Pt is extremely [place]. Reason for Visit * Reason Onset Date Comments case management 11/20/2021 CM FU Encounter Details Date Type Department Care Team Description 11/20/2021 Asphalt Paving Machine Operator Telephone Family Practice [facility] [address] [place] [address] Rani Knott, RN [address] [place] [address] case management (YAMILETH CRUZ) Allergies Active Allergy Reactions Severity Noted Date Comments Lisinopril Edema face/lips/tongue High 04/05/2018 documented as of this encounter (statuses as of 11/20/2021) Medications Medication Sig Dispensed Refills Start Date End Date Status Blood Glucose Monitoring Suppl (Shirley Mae'sUCH ULTRA SYSTEM) W/DEVICE KIT Use as directed [...] mellitus with hemoglobin A1c goal of 7.0%-8.0% ([facility]) Use as directed. Recommend check [...] 40 g 1 07/05/2021 Active ReliOn Pen [place] 32G X 4 MM (Insulin Pen Needle)Indications:T [...] Encounter - Rani Knott RN - 11/20/2021 2:22 PM EST Case Management Assessment Is this call for a hospital, intermediate or rehab facility discharge to home? Yes [facility] 11/08-11/09CHF; HTN; afib. new to eliquis S: Reports: Pt with hospital discharge, seen in the office with . He is extremely hard of hearing and she uses a white board written on to communicate properly with. Dr Maria with concerns related to hospital discharge and medication changes. Pt started on Eliquis, insulin changed to 70/30, lasix and furosemide. Pt manages his own medications per . Per Dr Maria, patient may stay on prior dose of insulin that he was taking prior to the hospital and then transition to 70/30 when mail order is settled,. Bilateral lower extremity edema, left more than right. Legs scaly and red. Not painful to touch. Ambulates without difficulty. Noted in [facility] notes that pt and were not sure how he ended up with so much swelling in his legs. HgbA1c >11 Apparent that patient is not managing well. They are currently staying with his sister. He would like to switch to mail order pharmacy , however in the past was more costly then [facility] (it may have been related to when he was on Lantus insulin.). Weight gain: does not weigh at home, states that the scales lie. Increased edema: bilateral lower extremities, left more than right. Chest pain denies Increased shortness of breath: denies Chills / Sweats / Fever: denies chills/sweats and denies fever Fall: denies falls. Appetite: denies muscle cramps, dizziness, fainting denies nausea, vomiting, burning, decreased appetite Bowel: denies problems Bladder: denies problems O: Office visit for post hospital discharge. Medications: concerns about medication compliance Does this patient qualify for an annual wellness visit? No A: Patient Centered Prioritized Goals: Development of self - management action plan with patient/caregiver/ provider. Identified Barriers: multiple medication changes, recent hospitalization. , Patient/caregiver's lack of understanding of their condition and prescribed treatment plan and Older than 70 years FUNCTIONAL STATUS: (Definition - assess ability to patient to manage their own care, includes evaluation of activities of daily living, and instrumental activities of daily living, and cognitive abilities status) ADL'S - Needs Assistance With: N/A as pt is independent IADL'S - Needs Assistance With: N/A as pt is independent Cognitive and Mental Health: denies problems, alert and oriented x 3 and able to communicate, understand instructions, process information. P: Asphalt Paving Machine Operator Interventions: discussed [facility], patient is agreeable. Would like to switch over to mail order, however hesitant regarding cost was higher in the past. Referral called to Simi at [facility]. May be able to see on Thursday if patient is agreeable. Reviewed HF symptom monitoring: -Weigh self daily in am, post-void and record -Do not add salt to food, avoid foods high in sodium -Limit fluids to 2 liters per day -Report the following: ->2 lb weight gain in one day or 5 lbs in a week to PCP -increased edema in feet, abdomen or hands -increased SOB and cough, especially if at night -increased fatigue or vertigo Reinforced safety education / fall prevention Reinforced medication regimen - timing / dosing / purpose PCP Notified of enrollment in CM/HM program: Yes SNP Member? No Re-evaluation of plan of care and progress towards goals achievement: Plan to refer to Jorge Saravia (Beatrice) Nikos HOWELL, BSN, [facility] Marian Maldonado [facility] Asphalt Paving Machine Operator [phone] documented in this encounter Plan of Treatment Upcoming Encounters Date Type Specialty Care Team Description 11/22/2021 Home Visit [facility] Elda Ponce RN [address] [place] [address] 11/26/2021 Office Visit Podiatry Sara Bridges DPM [address] [place], [place] [id number] 11/28/2021 Home Visit [facility] Wendy Cisneros CRNP [address] [place] [address] 12/06/2021 Home Visit [facility] Rica Taylor RN [address] [place] [address] 03/12/2022 Office Visit Family Medicine James Maria DO [address] [place] [address] Scheduled Procedures Name Priority Associated Diagnoses Date/Ti me COLONOSCOPY FLEXIBLE PROXIMA L DIAGNOSTIC Recall Encounter for screening colonoscopy Scheduled Referrals Name Type Priority Associated Diagnoses Orde r Schedule [facility] RE[facility]ERR[facility] OP Referral Within 24 hrs (call dept; emergent) Congestive heart failure (CHF) (HCC) Type 2 diabetes mellitus with hemoglobin A1c goal of less than 8.0% (HCC) HTN, goal below 130/80 Mixed conductive and sensorineural hearing loss of right ear with restricted hearing of left ear Ordered: 11/20/2021 Health Maintenance Due Date Last [...] as of this encounter Visit Diagnoses Diagnosis Congestive heart failure (CHF) (HCC)- Primary Congestive heart failure, unspecified Type 2 diabetes mellitus with hemoglobin A1c goal of less than 8.0% (HCC) HTN, goal below 130/80 Unspecified essential hypertension Mixed conductive and sensorineural hearing loss of right ear with restricted hearing of left ear documented in this encounter Advance Directives Documents on File Type Date Recorded Patient Traveling Clerk Expl 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 Directive Advanced Directive Advanced Directive Care Teams Quality Control Engineer Relationship Specialty Start Date End Date James Maria, [address] [place] [address] PCP - General Family Medicine 06/07/18 documented as of this encounter
--- OUTSIDE RECORDS SUMMARY | 2023-07-31 20:27 | External Medical Summary | Summary of Care ---
Author Name Unknown Organization [facility] Address [place] [address] Care Team Providers Care Depositing Machine Operator Name Role Phone James Maria Primary Care Provider Reason for Visit * Reason Onset Date Comments case management 11/18/2021 [facility] Encounter Details Date Type Department Care Team Description 11/18/2021 [place] Former Telephone Family Practice [facility] [address] [place] [id number] Rani Knott, RN [address] [facility] [place] [address] case management ([facility]) Allergies Active Allergy Reactions Severity Noted Date Comments Lisinopril Edema face/lips/tongue High 04/05/2018 documented as of this encounter (statuses as of 11/18/2021) Medications Medication Sig Dispensed Refills Start Date [...] 5 Tab 6 08/24/2017 Active Glucose Blood (GroupSpacesTOUCH VERIO) STRP Use up to 4 times a day E11.9 300 Strip 3 08/24/2017 Active Blood Glucose Monitoring Suppl (GroupSpacesTOHapplink) w/Device KITIndications:Type 2 diabetes mellitus with hemoglobin [...] 40 g 1 07/05/2021 Active ReliOn Pen [place] 32G X 4 MM (Insulin Pen Needle)Indications:T [...] as of this encounter (statuses as of 11/18/2021) Active Problems Problem Noted Date BPH with [...] as of this encounter (statuses as of 11/18/2021) Resolved Problems Problem Noted Date Resolved Date [...] as of this encounter (statuses as of 11/18/2021) Immunizations Name Administration Dates Next Due COVID-19 [...] Telephone Encounter - Rani Knott RN - 11/18/2021 2:28 PM EST 1. Follow-up Post Discharge 2. Attempted Phone Call First Attempt 3. Call Unanswered Left Voicemail 4. 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
--- OUTSIDE RECORDS SUMMARY | 2023-07-31 20:27 | External Medical Summary | Summary of Care ---
Author Name Unknown Organization [facility] Address [place] [address] Care Team Providers Care Reprographics Associate Name Role Phone James Maria DO Primary Care Provider Encounter Details Date Type Department Care Team Description 11/08/[address] [facility] [address] [place] [id number] [facility] [address] [facility] [place] [address] <No scans attached> Allergies Active Allergy Reactions [...] 3 08/24/2017 Active Blood Glucose Monitoring Suppl (NeuroSave) w/Device KITIndications:Type 2 diabetes mellitus with hemoglobin [...] 40 g 1 07/05/2021 Active ReliOn Pen [place] 32G X 4 MM (Insulin Pen Needle)Indications:T [...] Office Visit Podiatry Sara Bridges DPM [address] [facility] [place] [address] 03/12/2022 Office Visit Family Medicine James Maria, [address] [place] [address] Scheduled Procedures Name Priority Associated Diagnoses Date/Ti [...] Procedure Name Priority Date/Time Associated Diagnosis Comments OUTSIDE LAB RESULTS 11/08/2021 documented in this encounter Results * OUTSIDE LAB RESULTS (11/08/2021) Specimen Narrative documented in this encounter Advance Directives Documents on File Type Date Recorded Patient Health Support Specialist Expl 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 Directive Advanced Directive Advanced Directive Care Teams Reprographics Associate Relationship Specialty Start Date End Date James Maria DO [address] [facility] [place] [id number] PCP - General Family Medicine 06/07/18 documented as of this encounter
--- OUTSIDE RECORDS SUMMARY | 2023-07-31 20:28 | External Medical Summary | Summary of Care ---
Author Name Unknown Organization [facility] Address [place] [address] Care Team Providers Care Pan Washer Name Role Phone Crow James Dyefiliberto Primary Care Provider Reason for Visit * Reason Comments Follow Up Encounter Details Date Type Department Care Team Description 08/19/2021 Office Visit Podiatry [facility] [address] [facility] [place] [address] [facility] [address] [facility] [place] [address] [phone] DM type 2 with diabetic peripheral neuropathy (HCC)*; Onychomycosis; Corns and callosities Allergies Active Allergy Reactions Severity Noted Date Comments Lisinopril Edema face/lips/tongue High 04/05/2018 documented as of this encounter (statuses as of 08/19/2021) Medications Medication Sig Dispensed Refills Start Date End Date Status ciprofloxacin-dexame thasone (CIPRODEX) 0.3-0.1 % otic suspensionIndication s:Mixed hearing loss, unilateral,Chronic mastoiditis,Otitis media 4 DROPS RIGHT EAR ASNEEDED IF WATER GETS IN EAR 7.5 mL 3 01/29/2016 Active Additional Information Patient not taking. Reported on 11/05/2020 Blood Glucose Monitoring Suppl (Service Seeking ULTRA SYSTEM) W/DEVICE KIT Use as directed [...] 5 Tab 6 08/24/2017 Active Glucose Blood (Lodo SoftwareTOUCH VERIO) STRP Use up to 4 times a day E11.9 300 Strip 3 08/24/2017 Active Blood Glucose Monitoring Suppl (Service Seeking VERIO) w/Device KITIndications:Type 2 diabetes mellitus with hemoglobin A1c goal of 7.0%-8.0% ([facility]) Use as directed. Recommend check glucose levels at least 2 times daily-once in AM before breakfast and once 2 hours after evening meal. 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 30 Tab 0 02/19/2021 Active amLODIPine Besylate 5 MG Oral Tablet (Norvasc) Take 1 Tab by mouth daily. 90 Tab 1 02/20/2021 Active Aspirin EC 81 MG Oral Tablet Delayed ReleaseIndications:T ype 2 diabetes mellitus with diabetic neuropathy, unspecified ([facility]) Take 1 Tab by mouth daily. 100 Tab 1 02/20/2021 Active Atorvastatin Calcium 40 MG Oral Tablet (Lipitor) Take 1 Tab by mouth daily. 90 Tab 1 02/20/2021 Active Insulin Syringe-Needle U-100 30G X 5/16" 0.3 ML (ReliOn Insulin Syringe)Indications: Type 2 diabetes mellitus with polyneuropathy (HCC),Type 2 diabetes mellitus with hemoglobin A1c goal of less than 8.0% (HCC) Use up to 4 x a day for insulin dosing E11.9 3 Each 1 02/20/2021 Active metFORMIN HCl 1000 MG Oral Tablet (Glucophage)Indicati ons:Type 2 diabetes mellitus with hemoglobin A1c goal of less than 7.0% (HCC) Take 1 Tab by mouth 2 times a day with morning and evening meals. 180 Tab 1 02/20/2021 Active Insulin NPH (Human) (Isophane) 100 UNIT/ML Subcutaneous Suspension (NovoLIN N ReliOn)Indications:T ype 2 diabetes mellitus with polyneuropathy (HCC) Inject 35 Units under the skin at bedtime. 4 Each 1 02/28/2021 Active Insulin Regular Human 100 UNIT/ML Injection Solution (NovoLIN R ReliOn)Indications:T ype 2 diabetes mellitus with polyneuropathy (HCC) INJECT 5 UNITS SUBCUTANEOUSLY THREE TIMES DAILY BEFORE MEALS 10 mL 6 02/28/2021 Active ReliOn Pen [place] 32G X 4 MM (Insulin Pen Needle)Indications:T ype 2 diabetes mellitus with polyneuropathy (HCC) Use as directed with flexpen 100 Each 6 02/28/2021 Active Silver sulfADIAZINE 1 % External Cream [...] three weeks. 40 g 1 07/05/2021 Active documented as of this encounter (statuses as of 08/19/2021) Active Problems Problem Noted Date BPH with [...] as of this encounter (statuses as of 08/19/2021) Resolved Problems Problem Noted Date Resolved Date [...] as of this encounter (statuses as of 08/19/2021) Immunizations Name Administration Dates Next Due COVID-19 [...] 11/02 Smokeless Tobacco: Never Used Alcohol Use Drinks/Week oz/Week Comments Yes 0.0 As of 2.17.2006 , the last noted alcohol intake was 1 ounces. Food Insecurity Answer Date Recorded Within the past 12 months, y ou worried that your food would run out before you got money to buy more. Never true Within the past 12 months, t he food you bought just didn't last and you didn't have money to get more. Never true Sex Assigned at Date Recorded Male 11/21/2019 11:44 AM EST Job Start Date Occupation Industry Not on file Not on file Not on file documented as of this encounter Progress Notes * Sara Bridges DPM - 08/19/2021 3:52 PM EDT Podiatry Established Note [facility] Name: Selvin Sebastian : 1945 Date: 08/19/21 Patient was seen and toenails were addressed by certified diesel technician Michael Méndez under my supervision. She performed procedure without issue and patient was amendable to this today. Follow up: 3 months, they were instructed to call sooner with any concerns or new issues * Aida Méndez TECH - 08/19/2021 9:18 AM EDT The patient presents today for foot care. They offer no additional complaints outside of their toenails. Procedure: After mild cleansing and drying of toes, toenails 1-5 bilaterally were manually and mechanically reduced to appropriate length with a sterile nail nipper. Incurvating edges were removed. An electrical Dremel tool with bur was used in a side to side motion to reduce nail thickness, hypertrophic growth, and to smooth all edges. This was performed without incident. Patient tolerated well. documented in this encounter Plan of Treatment Upcoming Encounters Date Type Specialty Care Team Description 09/05/2021 Office Visit Family Medicine James Maria DO [address] [place] [address] [phone] 11/26/2021 Office Visit Podiatry Sara Bridges DPM [address] [place] [address] [phone] Health Maintenance Due Date Last Done Comments Yearly B-12 11/16/2020 11/16/2019, 01/11/2018 *DEPRESSION SCREENING,ANNUAL FOR PTS 12 AND OVER 11/24/2020 DIABETES-URINE MICROALBUMIN EVERY 12 MONTHS 03/13/2021 03/13/2020, 12/13/2018, 01/11/2018, Additional history exists COVID-19 Vaccine (2 - Moderna 2-dose series) 03/22/2021 02/22/2021 DIABETES-HGBA1C EVERY 6 MONTHS 08/29/2021 02/27/2021, 03/13/2020, 11/16/2019, Additional history exists DTaP,Tdap,and Td Vaccines (2 - Td) 10/21/2021 10/21/2011, 11/09/2003 DIABETES-FOOT EXAM 02/28/2022 02/28/2021, 1 12/14/2018, 06/07/2018, Additional history exists DIABETES-EYE EXAM 03/04/2022 03/04/2021, , 06/30/2016, Additional history exists Pneumococcal Vaccine: 65+ Years Completed 12/24/2015, 07/23/2011 Zoster Vaccines Completed 03/13/2020, 11/03, 08/03/2012 Influenza Vaccine (FLU shot) Completed 07/2021, 08/03/2020, 08/22/2019, Additional history exists MENINGOCOCCAL (MENACTRA/MENVEO) Aged Out No longer eligible based on patient's age to complete this topic documented as of this encounter Implants Not on filedocumented as of this encounter Visit Diagnoses Diagnosis DM type 2 with diabetic peripheral neuropathy (HCC)- Primary Type II or unspecified type diabetes mellitus with neurological manifestations, not stated as uncontrolled Onychomycosis Dermatophytosis of nail Corns and callosities documented in this encounter Advance Directives Documents on File Type Date Recorded 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
--- OUTSIDE RECORDS SUMMARY | 2023-07-31 20:28 | External Medical Summary | Summary of Care ---
Author Name Unknown Organization [place] [address] Care Team Providers Care Kit Planner Name Role Phone James Maria DO Primary Care Provider Reason for Referral * Evaluate & Treat - Unlimited Visits (Within 10 days (routine)) Status Reason Specialty Diagnoses / Procedures Referred By Contact Referred To Contact Authorized Specialty Services Required Dermatology Diagnoses History of skin cancer James Maria DO [address] [address] Question Answer Referral Priority Within 10 days (routine) Are you referring the patient for Mohs Surgery and have a current positive skin cancer biopsy result? No What is the reason for the patient referral? Other Comments Hx of skin CA, new lesion on ear lobe Electronically signed by James Maria DO at Reason for Visit * Reason Onset Date Comments Referral 07/03/2021 derm Encounter Details Date Type Department Care Team Description 07/03/2021 Telephone Family Practice [facility] [address] [address] James Maria DO [address] [address] [phone] Referral (derm) Allergies Active Allergy Reactions Severity Noted Date Comments Lisinopril Edema face/lips/tongue High 04/05/2018 documented as of this encounter (statuses as of 07/03/2021) Medications Medication Sig Dispensed Refills Start Date End Date Status ciprofloxacin-dexame thasone (CIPRODEX) 0.3-0.1 % otic suspensionIndication s:Mixed hearing loss, unilateral,Chronic mastoiditis,Otitis media 4 DROPS RIGHT EAR ASNEEDED IF WATER GETS IN EAR 7.5 mL 3 01/29/2016 Active Additional Information Patient not taking. Reported on 11/05/2020 Blood Glucose Monitoring Suppl ([employer] SYSTEM) W/DEVICE KIT Use as directed 4 times a day as needed for Hyperglycemia (high sugar) or Hypoglycemia (low sugar). Use up to four times a day as directed 1 Kit 0 01/29/2016 Active ONETOUCH ULTRA BLUE STRP USE TO CHECK GLUCOSE 4 TIMES DAILY 100 Strip 0 11/13/2016 Active 1bibTOUCH DELICA LANCETS 33G MISC USE ONE TO CHECK GLUCOSE 4 TIMES DAILY 100 Each 0 11/13/2016 Active Sildenafil Citrate (VIAGRA) 50 MG TabletIndications:Im potence of organic origin Take 1 Tab by mouth as needed for Erectile Dysfunction. 5 Tab 6 08/24/2017 Active Glucose Blood ([employer] Services[employer]CH VERIO) STRP Use up to 4 times a day E11.9 300 Strip 3 08/24/2017 Active Blood Glucose Monitoring Suppl (OneTouchEMRIO) w/Device KITIndications:Type 2 diabetes mellitus with hemoglobin A1c goal of 7.0%-8.0% (HCC) Use as directed. Recommend check glucose levels at least 2 times daily-once in AM before breakfast and once 2 hours after evening meal. 1 Kit 0 05/12/2018 Active NOVOLOG FLEXPEN 100 UNIT/ML SOPNIndications:Type 2 diabetes mellitus with hemoglobin A1c goal of less than 7.0% (HCC) INJECT 5 UNITS SUBCUTANEOUSLY THREE TIMES [...] 10 mL 6 02/28/2021 Active ReliOn [place] 32G X 4 MM (Insulin Pen [...] a day. 14 Tab 0 05/31/2021 Active documented as of this encounter (statuses as of 07/03/2021) Active Problems Problem Noted Date BPH with [...] as of this encounter (statuses as of 07/03/2021) Resolved Problems Problem Noted Date Resolved Date [...] as of this encounter (statuses as of 07/03/2021) Immunizations Name Administration Dates Next Due COVID-19 [...] encounter Miscellaneous Notes * Telephone Encounter - Annabella Cabral OSA - 07/03/2021 3:06 PM EDT Called patient's and scheduled appointment. * Telephone Encounter - Celeste Maria OSA - 07/03/2021 1:50 PM EDT Hx of skin CA, new lesion on ear lobe Will send to derm for triage for a sooner appt. * Telephone Encounter - James Maria DO - 07/03/2021 1:42 PM EDT d documented in this encounter Plan of Treatment Upcoming Encounters Date Type Specialty Care Team Description 07/05/2021 Office Visit Dermatology hCris Damon MD [address] [place] [address] [phone] 08/19/2021 Office Visit Podiatry [facility] [address] [place] [address] [phone] 09/05/2021 Office Visit Family Medicine James Maria DO [address] [facility] [place] [address] [phone] Scheduled Referrals Name Type Priority Associated Diagnoses Orde r Schedule DERMATOLOGY REFERRAL OP Referral Within 10 days (routine) History of skin cancer Ordered: 07/03/2021 Health Maintenance Due Date Last Done Comments Yearly B-12 11/16/2020 11/16/2019, 01/11/2018 *DEPRESSION SCREENING,ANNUAL FOR PTS 12 AND OVER 11/24/2020 DIABETES-URINE MICROALBUMIN EVERY 12 MONTHS 03/13/2021 03/13/2020, 12/13/2018, 01/11/2018, Additional history exists COVID-19 Vaccine (2 - Moderna 2-dose series) 03/22/2021 02/22/2021 Influenza Vaccine (FLU shot) (#1) 2021 08/03/2020, 08/22/2019, 10/21/2018, Additional history exists DIABETES-HGBA1C EVERY 6 MONTHS 08/29/2021 02/27/2021, 03/13/2020, 11/16/2019, Additional history exists DTaP,Tdap,and Td Vaccines (2 - Td) 10/21/2021 10/21/2011, 11/09/2003 DIABETES-FOOT EXAM 02/28/2022 02/28/2021, 1 12/14/2018, 06/07/2018, Additional history exists DIABETES-EYE EXAM 03/04/2022 03/04/2021, , 06/30/2016, Additional history exists Pneumococcal Vaccine: 65+ Years Completed 12/24/2015, 07/23/2011 Zoster Vaccines Completed 03/13/2020, 11/03, 08/03/2012 MENINGOCOCCAL (MENACTRA/MENVEO) Aged Out No longer eligible based on patient's age to complete this topic documented as of this encounter Implants Not on filedocumented as of this encounter Visit Diagnoses Diagnosis History of skin cancer- Primary Personal history of other malignant neoplasm of skin documented in this encounter Advance Directives Documents on File Type Date Recorded Patient Solid Waste Technician Expl 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
--- OUTSIDE RECORDS SUMMARY | 2023-07-31 20:28 | External Medical Summary | Summary of Care ---
Author Name Unknown Organization [facility] Address [facility] [place] [address] Care Team Providers Care Certified Legal Investigator Name Role Phone James Maria DO Primary Care Provider Reason for Visit * Reason Comments Follow Up Encounter Details Date Type Department Care Team Description 09/05/2021 Office Visit Family [facility] [address] [place] [address] James Maria DO [address] [address] [phone] Type 2 diabetes mellitus with hemoglobin A1c goal of less than 8.0% ([facility])*; Mixed obsessional thoughts and acts; Type 2 diabetes mellitus with polyneuropathy ([facility]); Dyslipidemia; HTN, goal below 130/80; BPH with obstruction/lower urinary tract symptoms; Type 2 diabetes mellitus with hemoglobin A1c goal of less than 7.0% ([facility]); Type 2 diabetes mellitus with diabetic neuropathy, with long-term current use of insulin ([facility]) Allergies Active Allergy Reactions Severity Noted Date Comments Lisinopril Edema face/lips/tongue High 04/05/2018 documented as of this encounter (statuses as of 09/05/2021) Medications Medication Sig Dispensed Refills Start Date End Date Status Blood Glucose Monitoring Suppl ([employer] ULTRA SYSTEM) W/DEVICE KIT Use as directed [...] Tab 6 08/24/20 17 Active Glucose Blood (Flex PharmaTOUCH VERIO) STRP Use up to 4 times a day E11.9 300 Strip 3 08/24/20 17 Active Blood Glucose Monitoring Suppl (Flex PharmaTOUCH VERIO) w/Device KITIndications:Typ e 2 diabetes mellitus [...] daily 90 Tab 0 02/01/20 21 Active Cyclobenzaprine HCl 5 MG Oral Tablet (Flexeril)Indicati ons:Chronic right-sided low back pain without sciatica Take 1 Tab by mouth 3 times a day as needed for Muscle spasms. 30 Tab 0 02/20/20 21 Active Silver sulfADIAZINE 1 % External [...] g 1 07/05/20 21 Active ReliOn [place] 32G X 4 MM (Insulin Pen Needle)Indications :Type 2 diabetes mellitus with polyneuropathy (HCC) Use as directed with flexpen 100 Each 6 09/05/20 21 Active Insulin Regular Human 100 UNIT/ML Injection Solution (NovoLIN R ReliOn)Indications :Type 2 diabetes mellitus with polyneuropathy (HCC) INJECT 5 UNITS SUBCUTANEOUSLY THREE TIMES DAILY BEFORE MEALS 10 mL 6 09/05/20 21 Active Insulin NPH (Human) (Isophane) 100 UNIT/ML Subcutaneous Suspension (NovoLIN N ReliOn)Indications :Type 2 diabetes mellitus with polyneuropathy (HCC) Inject 35 Units under the skin at bedtime. 4 Each 1 09/05/20 21 Active metFORMIN HCl 1000 MG [...] daily. 100 Tab 1 09/05/20 21 Active amLODIPine Besylate 5 MG Oral Tablet (Norvasc) Take 1 Tab by mouth daily. 90 Tab 1 09/05/20 21 Active Tamsulosin HCl 0.4 MG Oral Capsule (Flomax) Take 1 Cap by mouth daily. 90 Cap 0 09/05/20 21 Active ciprofloxacin-dexa methasone (CIPRODEX) 0.3-0.1 % otic suspensionIndicati ons:Mixed hearing loss, unilateral,Chronic mastoiditis,Otitis media 4 DROPS RIGHT EAR ASNEEDED IF WATER GETS IN EAR 7.5 mL 3 01/29/20 16 021 Discontinued(Wi dication List Clean Up) NOVOLOG FLEXPEN 100 UNIT/ML SOPNIndications:Ty pe 2 diabetes mellitus with hemoglobin A1c goal of less than 7.0% ([facility]) INJECT 5 UNITS SUBCUTANEOUSLY THREE TIMES DAILY WITH MEALS 15 mL 3 01/27/20 19 021 Discontinued Tamsulosin HCl 0.4 MG Oral Capsule (Flomax) Take 1 Cap by mouth daily. 90 Cap 0 04/20/20 21 021 Discontinued(Re fill) amLODIPine Besylate 5 MG Oral Tablet (Norvasc) Take 1 Tab by mouth daily. 90 Tab 1 02/21/20 21 021 Discontinued(Re fill) Aspirin EC 81 MG Oral Tablet Delayed ReleaseIndications :Type 2 diabetes mellitus with diabetic neuropathy, unspecified (HCC) Take 1 Tab by mouth daily. 100 Tab 1 02/21/20 21 021 Discontinued(Re fill) Atorvastatin Calcium 40 MG Oral Tablet (Lipitor) Take 1 Tab by mouth daily. 90 Tab 1 02/21/20 21 021 Discontinued(Re fill) Insulin Syringe-Needle U-100 30G X 5/16" 0.3 ML (ReliOn Insulin Syringe)Indication s:Type 2 diabetes mellitus with polyneuropathy (HCC),Type 2 diabetes mellitus with hemoglobin A1c goal of less than 8.0% (HCC) Use up to 4 x a day for insulin dosing E11.9 3 Each 1 02/21/20 21 021 Discontinued(Re fill) metFORMIN HCl 1000 MG Oral Tablet (Glucophage)Indica tions:Type 2 diabetes mellitus with hemoglobin A1c goal of less than 7.0% (HCC) Take 1 Tab by mouth 2 times a day with morning and evening meals. 180 Tab 1 02/21/20 21 Discontinued(Re fill) Insulin NPH (Human) (Isophane) 100 UNIT/ML Subcutaneous Suspension (NovoLIN N ReliOn)Indications :Type 2 diabetes mellitus with polyneuropathy (HCC) Inject 35 Units under the skin at bedtime. 4 Each 1 02/29/20 21 Discontinued(Re fill) Insulin Regular Human 100 UNIT/ML Injection Solution (NovoLIN R ReliOn)Indications :Type 2 diabetes mellitus with polyneuropathy (HCC) INJECT 5 UNITS SUBCUTANEOUSLY THREE TIMES DAILY BEFORE MEALS 10 mL 6 02/29/20 21 Discontinued(Re fill) ReliOn [place] 32G X 4 MM (Insulin Pen Needle)Indications :Type 2 diabetes mellitus with polyneuropathy (HCC) Use as directed with flexpen 100 Each 6 02/29/20 21 Discontinued(Re fill) documented as of this encounter (statuses as of 09/05/2021) Active Problems Problem Noted Date BPH with [...] as of this encounter (statuses as of 09/05/2021) Resolved Problems Problem Noted Date Resolved Date [...] as of this encounter (statuses as of 09/05/2021) Immunizations Name Administration Dates Next Due COVID-19 [...] Drinks/Week oz/Week Comments Yes 0.0 As of 2..2006 , the last noted alcohol intake was [...] Sign Reading Time Taken Comments Blood Pressure 116/78 09/05/2021 5:00 PM EDT Pulse 60 09/05/2021 5:00 PM EDT Temperature 36.1 C (97 F) 09/05/2021 5:00 PM EDT Respiratory Rate 16 09/05/2021 5:00 PM EDT Oxygen Saturation 97% 09/05/2021 5:00 PM EDT Inhaled Oxygen Concentration - - Weight 78 kg (171 lb 14.4 oz) 09/05/2021 5:00 PM EDT Height - - Body Mass Index 27.75 11/05/2020 1:15 PM EST documented in this encounter Progress Notes * James Maria, - 09/05/2021 5:16 PM EDT Nursing Notes: Vivian Lassiter RN 09/05/21 [id number] Signed The patient has been properly identified by confirmation of name and date of . Chief Complaint Patient presents with Follow Up ASSESSMENT/PLAN: 1. Mixed obsessional thoughts and acts 2. Type 2 diabetes mellitus with hemoglobin A1c goal of less than 8.0% ([facility]) - HEMOGLOBIN A1C; Future - Insulin Syringe-Needle U-100 30G X 5/16" 0.3 ML; Use up to 4 x a day for insulin dosing E11.9 Dispense: 3 Each; Refill: 1 3. Type 2 diabetes mellitus with polyneuropathy (HCC) - ReliOn [place] 32G X 4 MM (Insulin Pen Needle); Use as directed with flexpen Dispense: 100 Each; Refill: 6 - Insulin Regular Human 100 UNIT/ML Injection Solution (NovoLIN R ReliOn); INJECT 5 UNITS SUBCUTANEOUSLY THREE TIMES DAILY BEFORE MEALS Dispense: 10 mL; Refill: 6 - Insulin NPH (Human) (Isophane) 100 UNIT/ML Subcutaneous Suspension (NovoLIN N ReliOn); Inject 35 Units under the skin at bedtime. Dispense: 4 Each; Refill: 1 - Insulin Syringe-Needle U-100 30G X 5/16" 0.3 ML; Use up to 4 x a day for insulin dosing E11.9 Dispense: 3 Each; Refill: 1 4. Dyslipidemia - LIPID PANEL WITH DIRECT LDL IF TG IS HIGH; Future - COMPREHENSIVE METABOLIC PANEL; Future 5. HTN, goal below 130/80 6. BPH with obstruction/lower urinary tract symptoms 7. Type 2 diabetes mellitus with hemoglobin A1c goal of less than 7.0% ([facility]) - metFORMIN HCl 1000 MG Oral Tablet (Glucophage); Take 1 Tab by mouth 2 times a day with morning and evening meals. Dispense: 180 Tab; Refill: 1 8. Type 2 diabetes mellitus with diabetic neuropathy, unspecified ([facility]) - Aspirin EC 81 MG Oral Tablet Delayed Release; Take 1 Tab by mouth daily. Dispense: 100 Tab; Refill: 1 HPI: Selvin Sebastian is a 76 year old male who: Patient very hard of hearing, noncompliant with medical therapy, has been advised multiple times tothe consequences of the ongoing hyperglycemia that he is experiencing due to his lack of compliancewith therapy. Patient aware and willing to accept risks. ROS: See HPI for pertinent ROS PHYSICAL EXAMINATION: BP 116/78 | Pulse 60 | Temp 36.1 C (97 F) | Resp 16 | Wt 78 kg (171 lb 14.4 oz) | SpO2 97% | BMI 27.75 kg/m | BSA 1.91 m GENERAL: alert, healthy, no distress, well nourished and well developed EYES: PERRL, EOMI, Conjunctiva are pink and non-injected, sclera clear Results for orders placed or performed in visit on 02/27/21 LIPID PANEL WITH DIRECT LDL IF TRIGLYCERIDE IS ELEVATED Result Value Ref Range Triglycerides 65 <=174 mg/dL Cholesterol 125 <200 mg/dL HDL Cholesterol 42 >39 mg/dL Non-HDL Cholesterol 83 <=159 mg/dL LDL Cholesterol 70 <=129 mg/dL HEMOGLOBIN A1C Result Value Ref Range Hemoglobin A1C 13.2 (H) 4.0 - 5.6 % Estimated Average Glucose 332 (H) <126 mg/dL BASIC METAB PANEL, BMP Result Value Ref Range BUN 14 6 - 20 mg/dL Creatinine 1.0 0.6 - 1.2 mg/dL Estimated Glomerular Filtration Rate 72.4 >=60.0 mL/min Sodium 134 (L) 135 - 146 mmol/L Potassium 4.2 3.5 - 5.1 mmol/L Chloride 97 (L) 98 - 107 mmol/L CO2 23 22 - 32 mmol/L Anion Gap 14 7 - 15 mmol/L Glucose 251 (H) 70 - 120 mg/dL Calcium 9.2 8.4 - 10.2 mg/dL ANEMIA CBC Result Value Ref Range WBC 9.72 4.00 - 10.80 K/uL RBC 4.93 4.50 - 5.25 M/uL HGB 14.6 14.0 - 16.8 g/dL HCT 42.6 40.0 - 48.4 % MCV 86.4 82.0 - 99.5 fL MCH 29.6 27.0 - 34.0 pg MCHC 34.3 32.0 - 36.0 g/dL RDW 11.7 11.5 - 15.5 % MPV 11.2 (H) 6.6 - 11.1 fL Nucleated RBC 0 <=0 /100 WBCs Plt 292 140 - 400 K/uL AUTOMATED ANALYZER WBC DIFFERENTIAL Result Value Ref Range WBC 9.72 4.00 - 10.80 K/uL Neutrophils % 62.1 40.0 - 75.0 % Lymphocytes % 29.4 18.0 - 42.0 % Monocytes % 6.0 1.0 - 11.0 % Eosinophils % 1.6 0.0 - 6.0 % Basophils % 0.6 0.0 - 2.0 % Immature Granulocyte % 0.3 0.0 - 2.0 % Absolute Neutrophils 6.03 1.80 - 7.70 K/uL Absolute Lymphocytes 2.86 1.00 - 4.80 K/ul Absolute Monocytes 0.58 0.00 - 1.10 K/uL Absolute Eosinophils 0.16 0.00 - 0.70 K/uL Absolute Basophils 0.06 0.00 - 0.20 K/uL Absolute Immature Granulocytes 0.03 0.00 - 0.20 K/uL Patient Active Problem List Diagnosis Code Mixed conductive and sensorineural hearing loss of right ear with restricted hearing of left ear H90.A31 Type 2 diabetes mellitus with hemoglobin A1c goal of less than 8.0% ([facility]) E11.9 Dyslipidemia E78.5 HTN, goal below 130/80 I10 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, bilateral M21.961, M21.962 Type 2 diabetes mellitus with polyneuropathy ([facility]) E11.42 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, 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, 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 Past Medical History: Diagnosis Date Allergic rhinitis 2004 BPH with obstruction/lower urinary tract symptoms 03/13/2020 Chronic mastoiditis 2004 Diabetes mellitus ([facility]) Dysfunction of eustachian tube 2004 Dyslipidemia 10/15/2009 Per Lipid Taxonomy. Hypertension Mixed hearing loss, unilateral 2004 right Mixed obsessional thoughts and acts 11/21/2019 Multilevel degenerative disc disease 03/13/2020 Otitis media 2004 Sensorineural hearing loss, unilateral 2004 left Past Surgical History: Procedure Laterality Date COLONOSCOPY 11/05 clear - repeat 10 y COLONOSCOPY, DIAGNOSTIC (RECTUM) 12/10/2015 diverticulosis, repeat 10 yrs/COLONOSCOPY FLEXIBLE PROXIMAL DIAGNOSTIC performed by Agustin Saravia MD at ENDOSCOPY [facility] FOOT/TOE SURGERY NEC 11/14 L foot deformity L-/S-SPINE PARAVERTEBRAL FACET INJ,1 LEVEL 05/03/2020 L-/S-SPINE PARAVERTEBRAL FACET INJ, 1 LEVEL performed by Avtar Merchant DO at OR [facility] MASTOID SURGERY REVISION/APICECTOMY age 18 [facility] SHOULDER [facility]THROSCOPY SURGERY 01/07 spur removed Current Outpatient Medications Medication Sig Dispense Refill ReliOn [place] 32G X 4 MM (Insulin Pen Needle) Use as directed with flexpen 100 Each 6 Insulin Regular Human 100 UNIT/ML Injection Solution (NovoLIN R ReliOn) INJECT 5 UNITS SUBCUTANEOUSLY THREE TIMES DAILY BEFORE MEALS 10 mL 6 Insulin NPH (Human) (Isophane) 100 UNIT/ML Subcutaneous Suspension (NovoLIN N ReliOn) Inject 35Units under the skin at bedtime. 4 Each 1 metFORMIN HCl 1000 MG Oral Tablet (Glucophage) [...] Tab by mouth daily. 100 Tab 1 amLODIPine Besylate 5 MG Oral Tablet (Norvasc) Take 1 Tab by mouth daily. 90 Tab 1 Tamsulosin HCl 0.4 MG Oral Capsule (Flomax) Take 1 Cap by mouth daily. 90 Cap 0 Blood Glucose Monitoring Suppl (CreativeD ULTRA SYSTEM) W/DEVICE KIT Use as directed 4 times a day as needed for Hyperglycemia (high sugar) or Hypoglycemia (low sugar). Use up to four times a day as directed 1 Kit 0 ONETOUCH ULTRA BLUE STRP USE TO CHECK GLUCOSE 4 TIMES DAILY 100 Strip 0 Flex PharmaTOUCH [place] LANCETS 33G MISC USE ONE TO CHECK GLUCOSE 4 TIMES DAILY 100 Each 0 Sildenafil Citrate (VIAGRA) 50 MG Tablet Take 1 Tab by mouth as needed for Erectile Dysfunction. 5 Tab 6 Glucose Blood (Flex PharmaTOUCH VERIO) STRP Use up to 4 times a day E11.9 300 Strip 3 Blood Glucose Monitoring Suppl (CreativeD VERIO) w/Device KIT Use as directed. Recommend check glucose levels at least 2 times daily-once in AM before breakfast and once 2 hours after evening meal. 1 Kit 0 Meloxicam 15 MG Oral Tablet Take 1 tablet by mouth once daily 90 Tab 0 Cyclobenzaprine HCl 5 MG Oral Tablet (Flexeril) Take 1 Tab by mouth 3 times a day as needed forMuscle spasms. 30 Tab 0 Silver sulfADIAZINE 1 % External Cream (Silvadene) Apply topically to affected area daily. Apply to to the left foot ulcer once daily. Cover with dry dressing. Perform once daily. 50 g 1 Amoxicillin-Pot Clavulanate 875-125 MG Oral Tablet (Augmentin) Take 1 Tab by mouth 2 times a day. 14 Tab 0 Fluorouracil 5 % External Cream (Efudex) Apply to Scalp, ears, and temples twice a day for three weeks. 40 g 1 No current facility-administered medications for this visit. Review of patient's allergies indicates: Allergen Reactions Lisinopril Edema face/lips/tongue James Maria DO [address] [place] [address] I spent 35-45 minutes reviewing this patients chart, face to face with the patient, reviewing labs/results/imaging, and documenting their care. (This note was completed using the dictation program Fluency Direct. As such, there may be misspellings, word substitutions, or other variations that should not change the essence of the clinical content of this encounter note.If there is need for further clarification, please direct questions to the provider listed above.) documented in this encounter Nursing Notes * Viivan Lassiter RN - 09/05/2021 5:11 PM EDT The patient has been properly identified by confirmation of name and date of . Chief Complaint Patient presents with Follow Up documented in this encounter Plan of Treatment Upcoming Encounters Date Type Specialty Care Team Description 11/26/2021 Office Visit [facility] [address] [facility] [place] [address] [phone] Scheduled Orders Name Type Priority Associated Diagnoses Orde r Schedule HEMOGLOBIN A1C Lab Routine Type 2 diabetes mellitus with hemoglobin A1c goal of less than 8.0% (HCC) Expected: 09/05/2021 (Approximate), Expires: 09/05/2022 LIPID PANEL WITH DIRECT LDL IF TG IS HIGH Lab Routine Dyslipidemia Expected: 09/05/2021, Expires: 09/05/2022 COMPREHENSIVE METABOLIC PANEL Lab Routine Dyslipidemia Expected: 09/05/2021 (Approximate), Expires: 09/05/2022 VITAMIN B12 Lab Routine Type 2 diabetes mellitus with hemoglobin A1c goal of less than 8.0% (HCC) Expected: 09/05/2021 (Approximate), Expires: 09/05/2022 Health Maintenance Due Date Last Done Comments [...] goal of less than 8.0% (HCC)- Primary Mixed obsessional thoughts and acts Type 2 diabetes mellitus with polyneuropathy (HCC) Type II or unspecified type diabetes mellitus with neurological manifestations, not stated as uncontrolled Dyslipidemia Other and unspecified hyperlipidemia HTN, goal below 130/80 Unspecified essential hypertension BPH with obstruction/lower urinary tract symptoms Hypertrophy of prostate with urinary obstruction and other lower urinary tract symptoms (LUTS) Type 2 diabetes mellitus with hemoglobin A1c goal of less than 7.0% (HCC) Type 2 diabetes mellitus with diabetic neuropathy, with long-term current use of insulin (HCC) documented in this encounter Advance Directives Documents on File Type Date Recorded Patient Tug Hand Expl anation Advanced Directive service a hi [...]
--- OUTSIDE RECORDS SUMMARY | 2023-07-31 20:28 | External Medical Summary | Summary of Care ---
Author Name Unknown Organization [place] [address] Care Team Providers Care Application Analyst Name Role Phone James Maria Primary Care Provider Encounter Details Date Type Department Care Team Description 08/10/2021 [facility] [address] [address] Sarbjit Baig DO [address] [place] [address] Allergies Active Allergy Reactions Severity Noted Date Comments Lisinopril Edema face/lips/tongue High 04/05/2018 documented as of this encounter (statuses as of 08/10/2021) Medications Medication Sig Dispensed Refills Start Date End Date Status ciprofloxacin-dexame thasone (CIPRODEX) 0.3-0.1 % otic suspensionIndication s:Mixed hearing loss, unilateral,Chronic mastoiditis,Otitis media 4 DROPS RIGHT EAR ASNEEDED IF WATER GETS IN EAR 7.5 mL 3 01/29/2016 Active Additional Information Patient not taking. Reported on 11/05/2020 Blood Glucose Monitoring Suppl (TapShieldUCH ULTRA SYSTEM) W/DEVICE KIT Use as directed 4 times a day as needed for Hyperglycemia (high sugar) or Hypoglycemia (low sugar). Use up to four times a day as directed 1 Kit 0 01/29/2016 Active TapShieldUCH ULTRA BLUE STRP USE TO CHECK GLUCOSE 4 TIMES DAILY 100 Strip 0 11/13/2016 Active TapShieldUCH DELICA LANCETS 33G MISC USE ONE TO CHECK GLUCOSE 4 TIMES DAILY 100 Each 0 11/13/2016 Active Sildenafil Citrate (VIAGRA) 50 MG TabletIndications:Im potence of organic origin Take 1 Tab by mouth as needed for Erectile Dysfunction. 5 Tab 6 08/24/2017 Active Glucose Blood (CondoDomain) STRP Use up to 4 times a day E11.9 300 Strip 3 08/24/2017 Active Blood Glucose Monitoring Suppl (CondoDomain) w/Device KITIndications:Type 2 diabetes mellitus with hemoglobin A1c goal of 7.0%-8.0% ([facility]) Use as directed. Recommend check glucose levels at least 2 times daily-once in AM before breakfast and once 2 hours after evening meal. 1 Kit 0 05/12/2018 Active NOVOLOG FLEXPEN 100 UNIT/ML SOPNIndications:Type 2 diabetes mellitus with hemoglobin A1c goal of less than 7.0% ([facility]) INJECT 5 UNITS SUBCUTANEOUSLY THREE TIMES DAILY [...] hemoglobin A1c goal of less than 7.0% ([facility]) Take 1 Tab by mouth 2 times [...] 10 mL 6 02/28/2021 Active ReliOn Pen [place] 32G X 4 MM (Insulin Pen Needle)Indications:T [...] as of this encounter (statuses as of 08/10/2021) Active Problems Problem Noted Date BPH with [...] as of this encounter (statuses as of 08/10/2021) Resolved Problems Problem Noted Date Resolved Date [...] as of this encounter (statuses as of 08/10/2021) Immunizations Name Administration Dates Next Due COVID-19 [...] Encounters Date Type Specialty Care Team Description 08/19/2021 Office Visit Podiatry [facility] [address] [address] [phone] 09/05/2021 Office Visit Family Medicine James Maria, [address] [address] [phone] Health Maintenance Due Date Last Done Comments Yearly B-12 11/16/2020 11/16/2019, 01/11/2018 *DEPRESSION SCREENING,ANNUAL FOR PTS 12 AND OVER 11/24/2020 DIABETES-URINE MICROALBUMIN EVERY 12 MONTHS 03/13/2021 03/13/2020, 12/13/2018, 01/11/2018, Additional history exists COVID-19 Vaccine (2 - Moderna 2-dose series) 03/22/2021 02/22/2021 Influenza Vaccine (FLU shot) (#1) 2021 08/10/2021, 08/03/2020, 08/22/2019, Additional history exists DIABETES-HGBA1C [...] on File Type Date Recorded Patient Special Officer Expl 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
--- OUTSIDE RECORDS SUMMARY | 2023-07-31 20:28 | External Medical Summary | Summary of Care ---
Author Name Unknown Organization [place] [address] Care Team Providers Care Football Scout Name Role Phone Mejia Maria DO Primary Care Provider Reason for Visit * Reason Comments Follow Up Referred by re.new lesion on ear lobe. said the reason she called for referral is because ofscabs on both helix which are sore for about a year or so.Hx of SCC.Would like full body skin check.Pt.is very hard of hearing, with pt. * Evaluate & Treat - Unlimited Visits (Within 10 days (routine)) Status Reason Specialty Diagnoses / Procedures Referred By Contact Referred To Contact Closed Specialty Services Required Dermatology Diagnoses History of skin cancer Mejia Maria DO [address] [place] [address] Encounter Details Date Type Department Care Team Description 07/05/2021 Office Visit Dermatology [facility] [place] [address] [place] [address] Chris Damon MD [address] [place] [address] [place] (actinic keratosis)*; Hx of squamous cell carcinoma Allergies Active Allergy Reactions Severity Noted Date Comments Lisinopril Edema face/lips/tongue High 04/05/2018 documented as of this encounter (statuses as of 07/05/2021) Medications Medication Sig Dispensed Refills Start Date End Date Status ciprofloxacin-dexame thasone (CIPRODEX) 0.3-0.1 % otic suspensionIndication s:Mixed hearing loss, unilateral,Chronic mastoiditis,Otitis media 4 DROPS RIGHT EAR ASNEEDED IF WATER GETS IN EAR 7.5 mL 3 01/29/2016 Active Additional Information Patient not taking. Reported on 11/05/2020 Blood Glucose Monitoring Suppl ([employer] ULTRA SYSTEM) W/DEVICE KIT Use as directed [...] 5 Tab 6 08/24/2017 Active Glucose Blood (Industrial ToysUCH VERIO) STRP Use up to 4 times a day E11.9 300 Strip 3 08/24/2017 Active Blood Glucose Monitoring Suppl ([employer] ToysUCH VERIO) w/Device KITIndications:Type 2 diabetes mellitus with [...] 10 mL 6 02/28/2021 Active ReliOn Pen [place] 32G X 4 MM (Insulin Pen Needle)Indications:T [...] as of this encounter (statuses as of 07/05/2021) Active Problems Problem Noted Date BPH with [...] as of this encounter (statuses as of 07/05/2021) Resolved Problems Problem Noted Date Resolved Date [...] as of this encounter (statuses as of 07/05/2021) Immunizations Name Administration Dates Next Due COVID-19 [...] as of this encounter Progress Notes * Chris Damon MD - 07/05/2021 12:08 PM EDT SUBJECTIVE: Chief Complaint: Chief Complaint Patient presents with Follow Up Referred by re.new lesion on ear lobe. said the reason she called for referral is because ofscabs on both helix which are sore for about a year or so.Hx of SCC.Would like full body skin check.Pt.is very hard of hearing, with pt. History of Present Illness: Selvin Sebastian is a 75 year old male seen at the request of Mejia Maria DO for evaluation and treatment of skin check hx of squamous cell carcinoma in 2016 s/p mohs, uses hat but not sunscreen, today dry areas mostly ears but also scalp. He is very hard of hearing and history mostly obtained from his . 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 PSH: Past Surgical History: Procedure Laterality Date COLONOSCOPY 11/05 clear - repeat 10 y COLONOSCOPY, DIAGNOSTIC (RECTUM) 12/10/2015 diverticulosis, repeat 10 yrs/COLONOSCOPY FLEXIBLE PROXIMAL DIAGNOSTIC performed by Agustin Saravia MD at ENDOSCOPY [facility] FOOT/TOE SURGERY NEC 11/14 L foot deformity L-/S-SPINE PARAVERTEBRAL FACET INJ,1 LEVEL 05/03/2020 L-/S-SPINE PARAVERTEBRAL FACET INJ, 1 LEVEL performed by Avtra Merchant DO at OR [facility] MASTOID SURGERY REVISION/APICECTOMY age 18 [facility] SHOULDER ARTHROSCOPY SURGERY 01/07 spur removed Current Outpatient Medications Medication Sig Dispense Refill Fluorouracil 5 % External Cream (Efudex) Apply to Scalp, ears, and temples twice a day for three weeks. 40 g 1 Amoxicillin-Pot Clavulanate 875-125 MG Oral Tablet (Augmentin) Take 1 Tab by mouth 2 times a day. 14 Tab 0 Silver sulfADIAZINE 1 % External Cream (Silvadene) Apply topically to affected area daily. Apply toto the left foot ulcer once daily. Cover with dry dressing. Perform once daily. 50 g 1 Insulin NPH (Human) (Isophane) 100 UNIT/ML Subcutaneous Suspension (NovoLIN N ReliOn) Inject 35 Units under the skin at bedtime. 4 Each 1 Insulin Regular Human 100 UNIT/ML Injection Solution (NovoLIN R ReliOn) INJECT 5 UNITS SUBCUTANEOUSLY THREE TIMES DAILY BEFORE MEALS 10 mL 6 ReliOn Pen [place] 32G X 4 MM (Insulin Pen Needle) Use as directed with flexpen 100 Each 6 amLODIPine Besylate 5 MG Oral Tablet (Norvasc) Take 1 Tab by mouth daily. 90 Tab 1 Aspirin EC 81 MG Oral Tablet Delayed Release Take 1 Tab by mouth daily. 100 Tab 1 Atorvastatin Calcium 40 MG Oral Tablet (Lipitor) Take 1 Tab by mouth daily. 90 Tab 1 Insulin Syringe-Needle U-100 30G X 5/16" 0.3 ML (ReliOn Insulin Syringe) Use up to 4 x a day for insulin dosing E11.9 3 Each 1 metFORMIN HCl 1000 MG Oral Tablet (Glucophage) Take 1 Tab by mouth 2 times a day with morning and evening meals. 180 Tab 1 Cyclobenzaprine HCl 5 MG Oral Tablet (Flexeril) Take 1 Tab by mouth 3 times a day as needed for Muscle spasms. 30 Tab 0 Tamsulosin HCl 0.4 MG Oral Capsule (Flomax) Take 1 Cap by mouth daily. 90 Cap 0 Meloxicam 15 MG Oral Tablet Take 1 tablet by mouth once daily 90 Tab 0 NOVOLOG FLEXPEN 100 UNIT/ML SOPN INJECT 5 UNITS SUBCUTANEOUSLY THREE TIMES DAILY WITH MEALS 15 mL 3 Blood Glucose Monitoring Suppl (OkBuy.comTOUCH VERIO) w/Device KIT Use as directed. Recommend check glucose levels at least 2 times daily-once in AM before breakfast and once 2 hours after evening meal. 1 Kit 0 Glucose Blood (ONETOUCH VERIO) STRP Use up to 4 times a day E11.9 300 Strip 3 Sildenafil Citrate (VIAGRA) 50 MG Tablet Take 1 Tab by mouth as needed for Erectile Dysfunction. 5 Tab 6 ONETOUCH DELICA LANCETS 33G MISC USE ONE TO CHECK GLUCOSE 4 TIMES DAILY 100 Each 0 ONETOUCH ULTRA BLUE STRP USE TO CHECK GLUCOSE 4 TIMES DAILY 100 Strip 0 Blood Glucose Monitoring Suppl ([employer] ULTRA SYSTEM) W/DEVICE KIT Use as directed 4 times a day as needed for Hyperglycemia (high sugar) or Hypoglycemia (low sugar). Use up to four times a day as directed 1 Kit 0 ciprofloxacin-dexamethasone (CIPRODEX) 0.3-0.1 % otic suspension 4 DROPS RIGHT EAR ASNEEDED IF WATER GETS IN EAR (Patient not taking: Reported on 11/05/2020) 7.5 mL 3 Review of patient's allergies indicates: Allergen Reactions Lisinopril Edema face/lips/tongue Physical Exam: Gen: Healthy, alert and no distress. Complete exam completed and is normal except Few thin rough keratotic papules vertex, temples, and helical rims. Assessment and Plan: 1. actinic keratosis 2. Hx of squamous cell carcinoma Sunscreen daily Recommended efudex rather than cryo for above lesions. Explained typical course. Pt and in agreement. Follow up Yearly or sooner prn new/changing skin lesion Chris Damon MD 07/05/2021 12:08 PM Ref: MEJIA MARIA[[id number]] [address] [address] (office) [phone] (fax) PCP: MEJIA MARIA [address] [address] [phone] documented in this encounter Nursing Notes * Latisha Rutledge, RN - 07/05/2021 11:33 AM EDT Patient identified by name and date of . Do you have any concerns about pain management for today's visit? No Living Will or Advance Directive for Health Care as noted on problem list. [employer] is a way you can talk to your provider online through e-mail. Would you like to sign up? I can activate it for you? ALREADY ACTIVE Chief Complaint Patient presents with Follow Up Referred by Dr.Smith larose.new lesion on ear lobe. said the reason she called for referral is because ofscabs on both helix which are sore for about a year or so.Hx of SCC.Would like full body skin check.Pt.is very hard of hearing, with pt. documented in this encounter Plan of Treatment Upcoming Encounters Date Type Specialty Care Team Description 08/19/2021 Office Visit Podiatry [facility] [address] [address] [phone] 09/05/2021 Office Visit Family Medicine Mejia Maria DO [address] [address] [phone] Health Maintenance Due Date Last Done Comments [...] as of this encounter Visit Diagnoses Diagnosis AK (actinic keratosis)- Primary Actinic keratosis Hx of squamous cell carcinoma Personal history of malignant neoplasm of other site documented in this encounter Advance Directives Documents on File Type Date Recorded Patient Structural Analysis Engineer Expl 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
--- OUTSIDE RECORDS SUMMARY | 2023-07-31 20:28 | External Medical Summary | Summary of Care ---
Author Name Unknown Organization [place] [address] Care Team Providers Care Billing Control Clerk Name Role Phone James Maria DO Primary Care Provider Reason for Referral * Evaluate & Treat - Unlimited Visits (Within 10 days (routine)) Status Reason Specialty Diagnoses / Procedures Referred By Contact Referred To Contact Authorized Specialty Services Required Dermatology Diagnoses History of skin cancer James Maria DO [address] [address] Question Answer Referral Priority Within 10 days [...] Care Team Description 07/03/2021 Telephone Family Practice [facility] [address] [address] James Maria DO [address] [address] [phone] Referral (derm) Allergies Active Allergy Reactions Severity [...] Reported on 11/05/2020 Blood Glucose Monitoring Suppl ([employer] SYSTEM) W/DEVICE KIT Use as directed 4 times a day as needed for Hyperglycemia (high sugar) or Hypoglycemia (low sugar). Use up to four times a day as directed 1 Kit 0 01/29/2016 Active ONETOUCH ULTRA BLUE STRP USE TO CHECK GLUCOSE 4 TIMES DAILY 100 Strip 0 11/13/2016 Active HealthEdgeTOUCH DELICA LANCETS 33G MISC USE ONE TO CHECK GLUCOSE 4 TIMES DAILY 100 Each 0 11/13/2016 Active Sildenafil Citrate (VIAGRA) 50 MG TabletIndications:Im potence of organic origin Take 1 Tab by mouth as needed for Erectile Dysfunction. 5 Tab 6 08/24/2017 Active Glucose Blood (DangerUCH VERIO) STRP Use up to 4 times a day E11.9 300 Strip 3 08/24/2017 Active Blood Glucose Monitoring Suppl (O[employer]IO) w/Device KITIndications:Type 2 diabetes mellitus with hemoglobin [...] 10 mL 6 02/28/2021 Active ReliOn Pen [place] 32G X 4 MM (Insulin Pen Needle)Indications:T [...] encounter Miscellaneous Notes * Telephone Encounter - Celeste Maria OSA - 07/03/2021 1:50 PM EDT Hx of skin CA, new lesion on ear lobe Will send to derm for triage for a sooner appt. * Telephone Encounter - James Maria DO - 07/03/2021 1:42 PM EDT d documented in this encounter Plan of Treatment Upcoming Encounters Date Type Specialty Care Team Description 08/19/2021 Office Visit Podiatry [facility] [address] [address] [phone] 09/05/2021 Office Visit Family Medicine James Maria DO [address] [address] [phone] Scheduled Referrals Name Type Priority Associated Diagnoses [...] Documents on File Type Date Recorded Patient Drafter Structural Expl anation Advanced Directive service a hi [...]
--- OUTSIDE RECORDS SUMMARY | 2023-07-31 20:29 | External Medical Summary | Summary of Care ---
Author Name Unknown Organization [place] [address] Care Team Providers Care Collar Setter Name Role Phone James Maria DO Primary Care Provider Reason for Referral * Evaluate & Treat - Unlimited Visits (Within 10 days (routine)) Status Reason Specialty Diagnoses / Procedures Referred By Contact Referred To Contact Authorized Specialty Services Required Dermatology Diagnoses History of skin cancer James Maria DO [address] [address] Question Answer Referral Priority Within 10 days [...] Care Team Description 07/03/[address] [facility] [address] [address] James Maria DO [address] [address] [phone] Referral (derm) Allergies Active Allergy Reactions Severity [...] Reported on 11/05/2020 Blood Glucose Monitoring Suppl ([employer] SYSTEM) W/DEVICE KIT Use as directed 4 times a day as needed for Hyperglycemia (high sugar) or Hypoglycemia (low sugar). Use up to four times a day as directed 1 Kit 0 01/29/2016 Active ONETOUCH ULTRA BLUE STRP USE TO CHECK GLUCOSE 4 TIMES DAILY 100 Strip 0 11/13/2016 Active RUNformTOUCH DELICA LANCETS 33G MISC USE ONE TO CHECK GLUCOSE 4 TIMES DAILY 100 Each 0 11/13/2016 Active Sildenafil Citrate (VIAGRA) 50 MG TabletIndications:Im potence of organic origin Take 1 Tab by mouth as needed for Erectile Dysfunction. 5 Tab 6 08/24/2017 Active Glucose Blood ([facility] Centers[facility]CH VERIO) STRP Use up to 4 times a day E11.9 300 Strip 3 08/24/2017 Active Blood Glucose Monitoring Suppl ([employer] DevelopmentIO) w/Device KITIndications:Type 2 diabetes mellitus with hemoglobin [...] 10 mL 6 02/28/2021 Active ReliOn Pen [place] 32G X 4 MM (Insulin Pen Needle)Indications:T [...] Care Team Description 08/19/2021 Office Visit Podiatry [facility] [address] [address] [phone] 09/05/2021 Office Visit Family Medicine James Maria DO [address] [address] [phone] Scheduled Referrals Name Type Priority Associated Diagnoses [...] Documents on File Type Date Recorded Patient Sap Ppm Consultant Expl 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
--- OUTSIDE RECORDS SUMMARY | 2023-07-31 20:29 | External Medical Summary | Summary of Care ---
Author Name Unknown [facility] [address] Care Team Providers Care Cryogenic Transport Driver Name Role Phone James Maria Primary Care Provider Reason for Visit * Reason Onset Date Comments Referral 03/01/2021 Encounter Details Date Type Department Care Team Description 03/01/2021 Telephone Pharmacy, [facility] [address] [place] [address] [facility] [place] [address] Referral Allergies Active Allergy Reactions Severity Noted Date Comments Lisinopril Edema face/lips/tongue High 04/05/2018 documented as of this encounter (statuses as of 03/15/2021) Medications Medication Sig Dispensed Refills Start Date End Date Status ciprofloxacin-dexame thasone (CIPRODEX) 0.3-0.1 % otic suspensionIndication s:Mixed hearing loss, unilateral,Chronic mastoiditis,Otitis media 4 DROPS RIGHT EAR ASNEEDED IF WATER GETS IN EAR 7.5 mL 3 01/29/2016 Active Additional Information Patient not taking. Reported on 11/05/2020 Blood Glucose Monitoring Suppl (TaptuTOUCH ULTRA SYSTEM) W/DEVICE KIT Use as directed 4 times a day as needed for Hyperglycemia (high sugar) or Hypoglycemia (low sugar). Use up to four times a day as directed 1 Kit 0 01/29/2016 Active ONETOUCH ULTRA BLUE STRP USE TO CHECK GLUCOSE 4 TIMES DAILY 100 Strip 0 11/13/2016 Active TaptuTOUCH DELICA LANCETS 33G MISC USE ONE TO CHECK GLUCOSE 4 TIMES DAILY 100 Each 0 11/13/2016 Active Sildenafil Citrate (VIAGRA) 50 MG TabletIndications:Im potence of organic origin Take 1 Tab by mouth as needed for Erectile Dysfunction. 5 Tab 6 08/24/2017 Active Glucose Blood (Qual Canal VERAmmado) STRP Use up to 4 times a day E11.9 300 Strip 3 08/24/2017 Active Blood Glucose Monitoring Suppl (Gudog) w/Device KITIndications:Type 2 diabetes mellitus with hemoglobin A1c goal of 7.0%-8.0% ([facility]) Use as directed. Recommend check glucose levels at least 2 times daily-once in AM before breakfast and once 2 hours after evening meal. 1 Kit 0 05/12/2018 Active NOVOLOG FLEXPEN 100 UNIT/ML SOPNIndications:Type 2 diabetes mellitus with hemoglobin A1c goal of less than 7.0% ([facility]) INJECT 5 UNITS SUBCUTANEOUSLY THREE TIMES [...] 2 diabetes mellitus with diabetic neuropathy, unspecified ([facility]) Take 1 Tab by mouth daily. [...] 10 mL 6 02/28/2021 Active ReliOn Pen David 32G X 4 MM (Insulin Pen Needle)Indications:T ype 2 diabetes mellitus with polyneuropathy (HCC) Use as directed with flexpen 100 Each 6 02/28/2021 Active documented as of this encounter (statuses as of 03/15/2021) Active Problems Problem Noted Date BPH with [...] as of this encounter (statuses as of 03/15/2021) Resolved Problems Problem Noted Date Resolved Date [...] as of this encounter (statuses as of 03/15/2021) Immunizations Name Administration Dates Next Due COVID-19 mRNA, LNP-s, No Pre serve, 2-Dose Series (Moderna) 02/22/2021 Pneumococcal Conjugate Vacc, 13 Valent (Prevnar) 12/24/2015 Pneumococcal Polysaccharide PPV23 (Pneumovax) 07/23/2011 Seasonal Influenza, Quadriva lent, No Preserve, 6 Mons & Above, IM 08/03/2020,10/21/2018,09/10/2017 Seasonal Influenza, Quadriva lent, No Preserve, IM 09/16/2016,11/22/2015 Seasonal Influenza, Trivalen t, Adjuvanted, 65+ yrs 08/22/2019 Seasonal Influenza, Trivalen t, with Preserve, 3yr & Above, Split 08/15/2014,2013,08/03/2012,07/23,09/10/2010,12/25/2009,08/06/2009 ,11/01/2008 TD - Tetanus/Diptheria (ADULT) 11/09/2003 [...] encounter Miscellaneous Notes * Telephone Encounter - Joanne Parrish OSA - 03/15/2021 2:12 PM EDT Patient Phone Numbers Left message on patients answering machine to schedule [facility] appointment for diabetes management. [facility] message sent --yes Letter sent---no. Clinic will follow up again in 2 week(s). [Attempt # 1] MICHEL Miller 03/15/2021, 2:12 PM * Telephone Encounter - Samina Blunt RPh - 03/01/2021 1:52 PM EDT Referral reviewed and is appropriate. Please schedule. Initial appt length: 40 min Appointment type indicated: In Person Preferred Clinic for Appointment: Patient referred to [facility] clinic for diabetes on behalf of Dr. Maria. Referral reviewed and relevant pre-visit information listed below: DM: Relevant history obtained from referral: Hard of hearing Target Hgb A1c: <7.0% Hemoglobin A1c Results: Hemoglobin AIC Results: Lab Results Component Value Date/Time HEMOGLOBIN A1C - [facility] 13.2 (H) 02/27/2021 11:24 AM HEMOGLOBIN A1C - [facility] 7.4 (H) 03/13/2020 09:26 AM HEMOGLOBIN A1C - [facility] 11.5 (H) 11/16/2019 08:37 AM HEMOGLOBIN A1C - [facility] 14.3 (H) 12/13/2018 03:03 PM Current DM Medications: NPH 35 units at bedtime Regular 5 units with meals [id number] mg BID Current MARYSOL/ARB therapy: NO Serum creatinine: 1 mg/dL 02/27/21 1124 Estimated creatinine clearance: 62.7 mL/min Current statin therapy: YES atorvastatin 40 mg daily Follow-up as scheduled. Samina Blunt RPh 03/01/2021, 1:52 PM * Telephone Encounter - Joanne Parrish OSA - 03/01/2021 12:42 PM EDT Indication for Pharmacist Medication Therapy Management: Diagnosis: diabetes Relevant History: poor compliance with meds due to lack of hearing and understanding - needs more touch points Target LDL: LDL less than 100 Target HgB A1C: Hgb A1C 7 - 8 Target blood pressure: 140/80 Minimum frequency patient should be seen in person for medication management: as appropriate per clinical condition and patient status By my signature, I understand that my patient Selvin Sebastian will have his medication therapy managed by the [facility] ([facility]) per established policies, procedures, and protocols. I also certify that this referral may serve as an initiation of service for the management of drug therapy in the above noted patient. [facility] providers will be responsible for scheduling patient visits, obtaining appropriate laboratory studies, and adjusting medication management therapy per patient's need, in addition to those roles spelled out in the clinic policy, procedures, and drug management protocols. I understand that the service provided by the [facility] is voluntary and have informed patient that they can refuse the service at their discretion. I am aware that the [facility] will provide me with a copy of the patient encounter via my [employer]. I authorize the [facility] to carry out these activities on my behalf. I consider this program to be a necessary part of the patient's medical care. James Maria DO documented in this encounter Plan of Treatment Upcoming Encounters Date Type Specialty Care Team Description 03/29/2021 Pharmacy Pharmacy [facility] [address] [place] [address] 04/17/2021 Office Visit Podiatry [facility] [address] [address] [phone] 09/05/2021 Office Visit Family Medicine James Maria DO [address] [address] [address] [phone] Health Maintenance Due Date Last Done Comments [...] 11/03, 08/03/2012 Influenza Vaccine (FLU shot) Completed 12/2019, 08/22/2019, 10/21/2018, Additional history exists MENINGOCOCCAL (MENACTRA/MENVEO) Aged Out No longer eligible based on patient's age to complete this topic documented as of this encounter Implants Not on filedocumented as of this encounter Advance Directives Documents on File Type Date Recorded Patient Cognos Report Developer Expl 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
--- OUTSIDE RECORDS SUMMARY | 2023-07-31 20:29 | External Medical Summary | Summary of Care ---
Author Name Unknown Organization [place] [address] Care Team Providers Care Parts Interpreter Name Role Phone Rylan Mariar Sophy Primary Care Provider Reason for Visit * Reason Comments Follow Up L foot ulcer Encounter Details Date Type Department Care Team Description 05/01/2021 Office Visit Podiatry [facility] [address] [facility] [place] [address] Kylie Burroughs, REM[facility]IOS [address] [facility] [address] Diabetic ulcer of left midfoot associated with type 2 diabetes mellitus, with fat layer exposed (HCC)* Allergies Active Allergy Reactions Severity Noted Date Comments Lisinopril Edema face/lips/tongue High 04/05/2018 documented as of this encounter (statuses as of 05/01/2021) Medications Medication Sig Dispensed Refills Start Date End Date Status ciprofloxacin-dexame thasone (CIPRODEX) 0.3-0.1 % otic suspensionIndication s:Mixed hearing loss, unilateral,Chronic mastoiditis,Otitis media 4 DROPS RIGHT EAR ASNEEDED IF WATER GETS IN EAR 7.5 mL 3 01/29/2016 Active Additional Information Patient not taking. Reported on 11/05/2020 Blood Glucose Monitoring Suppl (ZangZing ULTRA SYSTEM) W/DEVICE KIT Use as directed [...] 5 Tab 6 08/24/2017 Active Glucose Blood (IntroMapsTOUCH VERIO) STRP Use up to 4 times a day E11.9 300 Strip 3 08/24/2017 Active Blood Glucose Monitoring Suppl (IntroMapsTOUCH VERIO) w/Device KITIndications:Type 2 diabetes mellitus with hemoglobin A1c goal of 7.0%-8.0% ([facility]) Use as directed. Recommend check glucose levels at least 2 times daily-once in AM before breakfast and once 2 hours after evening meal. 1 Kit 0 05/12/2018 Active NOVOLOG FLEXPEN 100 UNIT/ML SOPNIndications:Type 2 diabetes mellitus with hemoglobin A1c goal of less than 7.0% ([facility]) INJECT 5 UNITS SUBCUTANEOUSLY THREE TIMES DAILY [...] 2 diabetes mellitus with diabetic neuropathy, unspecified ([facility]) Take 1 Tab [...] 10 mL 6 02/28/2021 Active ReliOn Pen [place] 32G X 4 MM (Insulin Pen Needle)Indications:T [...] 2 times a day. 14 Tab 0 04/17/2021 Active documented as of this encounter (statuses as of 05/01/2021) Active Problems Problem Noted Date BPH with [...] as of this encounter (statuses as of 05/01/2021) Resolved Problems Problem Noted Date Resolved Date [...] as of this encounter (statuses as of 05/01/2021) Immunizations Name Administration Dates Next Due COVID-19 [...] Progress Notes * Kylie Burroughs, REMEDIOS - 05/01/2021 9:52 AM EDT Podiatry Established Note [facility] Name: Selvin Sebastian : 1945 Date: 05/01/2021 REASON FOR VISIT: 2 week follow up for left foot ulcer SUBJECTIVE: This patient is a 75 year old male who presents today for follow up of a left foot ulcer. He had reported stepping on something which caused this issue. He has completed Augmentin. Familymember present and reports using silvadene and dry dressing daily. She feels the area looks better.He denies pain. FBS not checked today. He offers no other complaints. Past Medical History: Diagnosis Date Allergic rhinitis [...] Edema face/lips/tongue REVIEW OF SYSTEMS: CONSTITUTIONAL: No fatigue and No fevers, sweats, or chills EXTREMITIES: No pain, redness or swelling on the joints SKIN/INTEGUMENTARY: No rash, No itching and Positive for open left foot ulcer FOCUSED PODIATRIC EXAM: General: No apparent distress. Vascular: Pedal pulses palpable including dorsalis pedis and posterior tibial artery at 2/4 left. Capillary refill time is within normal limits to all toes. Non pitting edema noted. No warmth. Absence of pedalhair growth noted. Neurologic: Sensation (light touch) intact to the left foot. No hypersensitivity. No weakness. No tremor. Musculoskeletal: No pain with palpation of the left plantar foot ulcer. No significant acute deformity. No weakness. Dermatological: Open ulceration left plantar midfoot 0.3cm x 0.2cm x 0.1cm depth. Wound borders intact but macerated. Wound base is pink granular. DIAGNOSTIC STUDIES: None ASSESSMENT: ICD-10-CM 1. Diabetic ulcer of left midfoot associated with type 2 diabetes mellitus, with fat layer exposed ([facility]) E11.621 L97.422 PLAN: -I recommended betadine to the wound and borders, nurse applied this today. Family member instructed to do this once daily x 2 days then switch to silvadene. -He is to continue offloading when possible. Follow up: 3 weeks Kylie Burroughs DPM documented in this encounter Nursing Notes * Celeste Huber LPN - 05/01/2021 9:42 AM EDT Pt presents with his for 2 week follow up L midfoot ulcer, pt's thinks it is healing, notpainful. Using Silvadene once daily. Did not test BSG today. documented in this encounter Plan of Treatment Upcoming Encounters Date Type Specialty Care Team Description 05/27/2021 Pharmacy Pharmacy [facility] [address] [address] 05/29/2021 Office Visit Podiatry Kylie Burroughs DPM [address] [facility] [place] [address] [phone] 07/25/2021 Office Visit Podiatry [facility] [address] [address] [address] [phone] 09/05/2021 Office Visit Family Medicine James Maria DO [address] [address] [address] [phone] Health Maintenance Due Date Last Done Comments [...] encounter Visit Diagnoses Diagnosis Diabetic ulcer of left midfoot associated with type 2 diabetes mellitus, with fat layer exposed (HCC)- Primary documented in this encounter Advance Directives Documents on File Type Date Recorded Patient Conference Translator Expl anation Advanced Directive service a hi [...]
--- OUTSIDE RECORDS SUMMARY | 2023-07-31 20:29 | External Medical Summary | Summary of Care ---
Author Name Unknown Organization [facility] Address [place] [address] Care Team Providers Care Medical Typist Name Role Phone James Maria DO Primary Care Provider Reason for Referral * Evaluate & Treat - Unlimited Visits (Within 10 days (routine)) Status Reason Specialty Diagnoses / Procedures Referred By Contact Referred To Contact Authorized Specialty Services Required Pharmacist / Pharmacy Diagnoses DM type 2 nursing care encounter (HCC) Type 2 diabetes mellitus with polyneuropathy (HCC) Type 2 diabetes mellitus with diabetic neuropathy, with long-term current use of insulin ([facility]) James Maria DO [address] [place] [address] Question Answer Referral Priority Within 10 days (routine) Comments Indication for Pharmacist Medication Therapy Management: Diagnosis: [...] have his medication therapy managed by the [facility] Medication Therapy Disease [facility] ([facility]) per established policies, procedures, and protocols. I also certify that this referral may serve as an initiation of service for the management of drug therapy in the above noted patient. [facility] providers will be responsible for scheduling patient visits, obtaining appropriate laboratory studies, and adjusting medication management therapy per patient's need, in addition to those roles spelled out in the clinic policy, procedures, and drug management protocols. I understand that the service provided by the [facility] is voluntary and have informed patient that they can refuse the service at their discretion. I am aware that the [facility] Clinic will provide me with a copy of the patient encounter via my [employer]. I authorize the [facility] to carry out these activities on my behalf. I consider this program to be a necessary part of the patient's medical care. James Maria DO Electronically signed by James Maria DO at Reason for Visit * Reason Comments Re-Check Pt here for recheck, no concers Encounter Details Date Type Department Care Team Description 02/28/2021 Office Visit [facility] [address] [address] James Maria DO [address] [address] DM type 2 nursing care encounter (HCC)*; Type 2 diabetes mellitus with polyneuropathy (HCC); Type 2 diabetes mellitus with diabetic neuropathy, with long-term current use of insulin (HCC); Type 2 diabetes mellitus with hemoglobin A1c goal of less than 8.0% (HCC); HTN, goal below 130/80; BPH with obstruction/lower urinary tract symptoms Allergies Active Allergy Reactions Severity Noted Date Comments Lisinopril Edema face/lips/tongue High 04/05/2018 documented as of this encounter (statuses as of 03/04/2021) Medications Medication Sig Dispensed Refills Start Date End Date Status ciprofloxacin-dexam ethasone (CIPRODEX) 0.3-0.1 % otic suspensionIndicatio ns:Mixed hearing loss, unilateral,Chronic mastoiditis,Otitis media 4 DROPS RIGHT EAR ASNEEDED IF WATER GETS IN EAR 7.5 mL 3 6 Active Additional Information Patient not taking. Reported on 11/05/2020 Blood Glucose Monitoring Suppl (GnuBIO ULTRA SYSTEM) W/DEVICE KIT Use as directed [...] evening meal. 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 90 Cap 0 1 Active Cyclobenzaprine HCl 5 MG Oral Tablet (Flexeril)Indicatio ns:Chronic right-sided low back pain without sciatica Take 1 Tab by mouth 3 times a day as needed for Muscle spasms. 30 Tab 0 1 Active amLODIPine Besylate 5 MG Oral Tablet (Norvasc) Take 1 Tab by mouth daily. 90 Tab 1 1 Active Aspirin EC 81 MG Oral Tablet Delayed ReleaseIndications: Type 2 diabetes mellitus with diabetic neuropathy, unspecified (HCC) Take 1 Tab by mouth daily. 100 Tab 1 1 Active Atorvastatin Calcium 40 MG Oral Tablet (Lipitor) Take 1 Tab by mouth daily. 90 Tab 1 1 Active Insulin Syringe-Needle U-100 30G X 5/16" 0.3 ML (ReliOn Insulin Syringe)Indications :Type 2 diabetes mellitus with polyneuropathy (HCC),Type 2 diabetes mellitus with hemoglobin A1c goal of less than 8.0% (HCC) Use up to 4 x a day for insulin dosing E11.9 3 Each 1 1 Active metFORMIN HCl 1000 MG Oral Tablet (Glucophage)Indicat ions:Type 2 diabetes mellitus with hemoglobin A1c goal of less than 7.0% (HCC) Take 1 Tab by mouth 2 times a day with morning and evening meals. 180 Tab 1 1 Active Insulin NPH (Human) (Isophane) 100 UNIT/ML Subcutaneous Suspension (NovoLIN N ReliOn)Indications: Type 2 diabetes mellitus with polyneuropathy (HCC) Inject 35 Units under the skin at bedtime. 4 Each 1 1 Active Insulin Regular Human 100 UNIT/ML Injection Solution (NovoLIN R ReliOn)Indications: Type 2 diabetes mellitus with polyneuropathy (HCC) INJECT 5 UNITS SUBCUTANEOUSLY THREE TIMES DAILY BEFORE MEALS 10 mL 6 1 Active ReliOn Pen Coldspring 32G X 4 MM (Insulin Pen Needle)Indications: Type 2 diabetes mellitus with polyneuropathy (HCC) Use as directed with flexpen 100 Each 6 1 Active Insulin Pen Needle (RELION PEN NEEDLES) 32G X 4 MM Use as directed with flexpen 100 Each 6 7 02/29/20 21 Discontinu ed(Refill) NovoLIN R ReliOn 100 UNIT/ML Injection Solution (insulin REGULAR human)Indications:T ype 2 diabetes mellitus with polyneuropathy (HCC) INJECT 5 UNITS SUBCUTANEOUSLY THREE TIMES DAILY BEFORE MEALS 10 mL 0 1 02/29/20 21 Discontinu ed(Refill) Insulin NPH (Human) (Isophane) 100 UNIT/ML Subcutaneous Suspension (NovoLIN N ReliOn)Indications: Type 2 diabetes mellitus with polyneuropathy (HCC) Inject 35 Units under the skin at bedtime. 4 Each 1 1 02/29/20 21 Discontinu ed(Refill) documented as of this encounter (statuses as of 03/04/2021) Active Problems Problem Noted Date BPH with [...] as of this encounter (statuses as of 03/04/2021) Resolved Problems Problem Noted Date Resolved Date [...] as of this encounter (statuses as of 03/04/2021) Immunizations Name Administration Dates Next Due COVID-19 [...] Sign Reading Time Taken Comments Blood Pressure 116/58 02/28/2021 2:03 PM EDT Pulse 64 02/28/2021 2:03 PM EDT Temperature 36.7 C (98 F) 02/28/2021 2:03 PM EDT Respiratory Rate 16 02/28/2021 2:03 PM EDT Oxygen Saturation - - Inhaled Oxygen Concentration - - Weight 78.1 kg (172 lb 4 oz) 02/28/2021 2:03 PM EDT Height - - Body Mass Index 27.8 11/05/2020 1:15 PM EST documented in this encounter Patient Instructions * Patient Instructions* Celina Mcqueen LPN - 02/28/2021 2:09 PM EDT Images from the original note were not included. Dear Selvin Sebastian, The care of your Diabetes is very important to us. A yearly diabetic eye exam is important to protect your vision. If youre getting an eye exam done outside of [facility] please tell your Eye Doctor to fax or mail us the results of your Diabetic Eye Exam at your next visit. Our Address and Fax Number are listed below to help. Thank you for helping us to improve your Diabetes Care Our Office Address and Fax Number: James Maria DO [address] [place] [address] Diabetic Retinopathy: Evaluating Your Eyes Diabetic retinopathy [...] information about this test. Date Last Reviewed: 04/02/201619990386-4983 [employer]. [address] [place] [address], [place] [address]. All rights reserved. This information is not intended as a substitute for professional medical care. Always follow your healthcare professional's instructions. Diabetes: Keeping Feet Healthy Inspect your feet [...] calluses yourself. Talk to your doctor or farmworker [employer] (a doctor who specializes in foot care) [...] the area doesnt appear to be healing. [id number] [employer], [address] [place] [address], [place] [address]. All rights reserved. This information is not intended as a substitute for professional medical care. Always follow your healthcare professional's instructions. Dear Selvin Sebastian, The care of your Diabetes is very important to us. A yearly diabetic eye exam is important to protect your vision. If youre getting an eye exam done outside of [facility] please tell your Eye Doctor to fax or mail us the results of your Diabetic Eye Exam at your next visit. Our Address and Fax Number are listed below to help. Thank you for helping us to improve your Diabetes Care Our Office Address and Fax Number: James Maria, DO Family [address] [place] [address] Diabetic Retinopathy: Evaluating Your Eyes Diabetic retinopathy [...] information about this test. Date Last Reviewed: 04/02/201619994917-5072 [employer]. [address] [place] [address], [place] [address]. All rights reserved. This information is not intended as a substitute for professional medical care. Always follow your healthcare professional's instructions. documented in this encounter Progress Notes * Celina Mcqueen LPN - 03/04/2021 9:10 AM EDT The importance of having a yearly diabetic eye exam has been discussed with patient. Order and/or Referral placed along with patient instructions. Provider made aware. Celina Mcqueen LPN * Celina Mcqueen LPN - 02/28/2021 2:39 PM EDT DM Foot Exam completed today. Provider aware. Celina Mcqueen LPN Socks and Shoes Removed for Annual Diabetic Foot Screening RIGHT FOOT: No Reddened, Cracking, Or Open Areas Noted. RIGHT Dorsalis Pedis Pulse: Palpable RIGHT Posterior Tibial Pulse: Palpable RIGHT Monofilament:Patient reports difficulty feeling monofilament at Great toe- plantar surface andThird toe-plantar surface LEFT FOOT: No Reddened, Cracking or Open Areas Noted. LEFT Dorsalis Pedis Pulse: Palpable LEFT Posterior Tibial Pulse: Palpable LEFT Monofilament:Patient reports difficulty feeling monofilament at Great toe- plantar surface and Third toe-plantar surface * Celina Mcqueen LPN - 02/28/2021 2:09 PM EDT The importance of having a yearly diabetic eye exam has been discussed with patient. Order and/or Referral placed along with patient instructions. Provider made aware. * James Maria, - 02/28/2021 2:07 PM EDT Nursing Notes: Celina Mcqueen LPN 02/28/21 1407 Signed The patient has been properly identified by confirmation of name and date of . Chief Complaint Patient presents with Re-Check Pt here for recheck, no concers ASSESSMENT/PLAN: 1. DM type 2 nursing care encounter (HCC) - TELEMEDICINE DIABETIC EYE - PHARMACIST MEDS THERAPY MGMT REFERRAL OP 2. Type 2 diabetes mellitus with polyneuropathy ([facility]) - Insulin NPH (Human) (Isophane) 100 UNIT/ML Subcutaneous Suspension (NovoLIN N ReliOn); Inject 35 Units under the skin at bedtime. Dispense: 4 Each; Refill: 1 - Insulin Regular Human 100 UNIT/ML Injection Solution (NovoLIN R ReliOn); INJECT 5 UNITS SUBCUTANEOUSLY THREE TIMES DAILY BEFORE MEALS Dispense: 10 mL; Refill: 6 - ReliOn Pen Coldspring 32G X 4 MM (Insulin Pen Needle); Use as directed with flexpen Dispense: 100 Each; Refill: 6 - PHARMACIST MEDS THERAPY MGMT REFERRAL OP 3. Type 2 diabetes mellitus with diabetic neuropathy, with long-term current use of insulin ([facility]) - HEMOGLOBIN A1C; Future - PHARMACIST MEDS THERAPY MGMT REFERRAL OP 4. Type 2 diabetes mellitus with hemoglobin A1c goal of less than 8.0% ([facility]) 5. HTN, goal below 130/80 6. BPH with obstruction/lower urinary tract symptoms HPI: Selvin Sebastian is a 75 year old male who: Presents with ongoing DMII Ran out of needles so didn't take insulin for a few months Didn't call the clinic Doesn't take daily readings No hypoglycemic events Ongoing great difficulty hearing Has seen ENT, no further recommendations ROS: See HPI for pertinent ROS PHYSICAL EXAMINATION: BP 116/58 (BP Site: Left Arm, BP Position: Sitting) | Pulse 64 | Temp 36.7 C (98 F) (Tympanic) | Resp 16 | Wt 78.1 kg (172 lb 4 oz) | BMI 27.80 kg/m | BSA 1.91 m GENERAL: alert, healthy, no distress, well nourished and well developed EYES: PERRL, EOMI, Conjunctiva are pink and non-injected, sclera clear NECK: supple, no adenopathy, thyroid normal size, non-tender, without nodularity HEART: regular rate & rhythm, no murmurs and no gallops LUNGS: clear to auscultation bilaterally. 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, 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, 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 Past Medical History: Diagnosis Date Allergic rhinitis 2003 BPH with obstruction/lower urinary tract symptoms 03/13/2020 Chronic mastoiditis 2004 Diabetes mellitus ([facility]) Dysfunction of eustachian tube 2004 Dyslipidemia 10/15/2009 [...] performed by Agustin Saravia MD at ENDOSCOPY [facility] FOOT/TOE SURGERY NEC 11/14 L foot deformity L-/S-SPINE PARAVERTEBRAL FACET INJ,1 LEVEL 05/03/2020 L-/S-SPINE PARAVERTEBRAL FACET INJ, 1 LEVEL performed by Avtar Merchant DO at OR [facility] MASTOID SURGERY REVISION/APICECTOMY age 18 [facility] SHOULDER ARTHROSCOPY SURGERY 01/07 spur removed Current Outpatient Medications Medication Sig Dispense Refill Insulin NPH (Human) (Isophane) 100 UNIT/ML Subcutaneous Suspension (NovoLIN N ReliOn) Inject 35Units under the skin at bedtime. 4 Each 1 Insulin Regular Human 100 UNIT/ML Injection Solution (NovoLIN R ReliOn) INJECT 5 UNITS SUBCUTANEOUSLY THREE TIMES DAILY BEFORE MEALS 10 mL 6 ReliOn Pen Coldspring 32G X 4 MM (Insulin Pen Needle) [...] Tab by mouth daily. 90 Tab 1 metFORMIN HCl 1000 MG Oral Tablet (Glucophage) Take 1 Tab by mouth 2 times a day with morning and evening meals. 180 Tab 1 Cyclobenzaprine HCl 5 MG Oral Tablet (Flexeril) Take 1 Tab by mouth 3 times a day as needed forMuscle spasms. 30 Tab 0 Tamsulosin HCl 0.4 MG Oral Capsule (Flomax) Take 1 Cap by mouth daily. 90 Cap 0 Meloxicam 15 MG Oral Tablet Take 1 tablet by mouth once daily 90 Tab 0 NOVOLOG FLEXPEN 100 UNIT/ML SOPN INJECT 5 UNITS SUBCUTANEOUSLY THREE TIMES DAILY WITH MEALS 15 mL 3 Blood Glucose Monitoring Suppl (PharmaIN) w/Device KIT Use as directed. Recommend check glucose levels at least 2 times daily-once in AM before breakfast and once 2 hours after evening meal. 1 Kit 0 Glucose Blood (ProjjixUCH VERIO) STRP Use up to 4 times a day E11.9 300 Strip 3 Exponential EntertainmentTOUCH DELICA LANCETS 33G [facility] USE ONE TO CHECK GLUCOSE 4 TIMES DAILY 100 Each 0 ONETOUCH ULTRA BLUE STRP USE TO CHECK GLUCOSE 4 TIMES DAILY 100 Strip 0 Blood Glucose Monitoring Suppl (ONETOUCH ULTRA SYSTEM) W/DEVICE KIT Use as directed 4 times a day as needed for Hyperglycemia (high sugar) or Hypoglycemia (low sugar). Use up to four times a day as directed 1 Kit 0 Insulin Syringe-Needle U-100 30G X 5/16" 0.3 ML (ReliOn Insulin Syringe) Use up to 4 x a day for insulin dosing E11.9 3 Each 1 Sildenafil Citrate (VIAGRA) 50 MG Tablet Take 1 Tab by mouth as needed for Erectile Dysfunction. 5 Tab 6 ciprofloxacin-dexamethasone (CIPRODEX) 0.3-0.1 % otic suspension 4 DROPS RIGHT EAR ASNEEDED IF WATER GETS IN EAR (Patient not taking: Reported on 11/05/2020) 7.5 mL 3 Review of patient's allergies indicates: Allergen Reactions Lisinopril Edema face/lips/tongue James Maria DO [address] [address] I spent 35-45 minutes reviewing this patients [...] in this encounter Nursing Notes * Celina Mcqueen LPN - 02/28/2021 2:03 PM EDT The patient has been properly identified by confirmation of name and date of . Chief Complaint Patient presents with Re-Check Pt here for recheck, no concers documented in this encounter Miscellaneous Notes * Addendum Note - Celina Mcqueen LPN - 03/04/2021 9:11 AM EDT Addended by: CELINA MCQUEEN on: 03/04/2021 09:11 AM Modules accepted: Orders, SmartSet * Addendum Note - Celina Mcqueen LPN - 02/28/2021 2:41 PM EDT Addended by: CELINA MCQUEEN on: 02/28/2021 02:41 PM Modules accepted: Orders, SmartSet documented in this encounter Plan of Treatment Upcoming Encounters Date Type Specialty Care Team Description 04/17/2021 Office Visit Podiatry [facility] [address] [place] [address] [phone] 09/05/2021 Office Visit Family Medicine James Maria [address] [place] [address] [phone] Scheduled Orders Name Type Priority Associated Diagnoses Orde r Schedule HEMOGLOBIN A1C Lab Routine Type 2 diabetes mellitus with diabetic neuropathy, with long-term current use of insulin (HCC) Expected: 05/30/2021 (Approximate), Expires: 02/28/2022 Scheduled Referrals Name Type Priority Associated Diagnoses Orde r Schedule PHARMACIST MEDS THERAPY MGMT REFERRAL OP Referral Within 10 days (routine) DM type 2 nursing care encounter (HCC) Type 2 diabetes mellitus with polyneuropathy (HCC) Type 2 diabetes mellitus with diabetic neuropathy, with long-term current use of insulin (HCC) Ordered: 02/28/2021 Health Maintenance Due Date Last Done Comments Yearly B-12 11/16/2020 11/16/2019, 01/11/2018 *DEPRESSION SCREENING,ANNUAL FOR PTS 12 AND OVER 11/24/2020 DIABETES-EYE EXAM 12/15/2020 12/15/2019, , 02/28/2013, Additional history exists DIABETES-URINE MICROALBUMIN EVERY 12 MONTHS 03/13/2021 03/13/2020, 12/13/2018, 01/11/2018, Additional history exists COVID-19 Vaccine (2 - Moderna 2-dose series) 03/22/2021 02/22/2021 DIABETES-HGBA1C EVERY 6 MONTHS 08/29/2021 02/27/2021, 03/13/2020, 11/16/2019, Additional history exists DTaP,Tdap,and Td Vaccines (2 - Td) 10/21/2021 10/21/2011, 11/09/2003 DIABETES-FOOT EXAM 02/28/2022 02/28/2021, 1 12/14/2018, 06/07/2018, Additional history exists Pneumococcal Vaccine: 65+ Years Completed 12/24/2015, 07/23/2011 Zoster Vaccines Completed 03/13/2020, 11/03, 08/03/2012 Influenza Vaccine (FLU shot) Completed 12/2019, 08/22/2019, 10/21/2018, Additional history exists MENINGOCOCCAL (MENACTRA/MENVEO) Aged Out No longer eligible based on patient's age to complete this topic documented as of this encounter Implants Not on filedocumented as of this encounter Visit Diagnoses Diagnosis DM type 2 nursing care encounter (HCC)- Primary Type II or unspecified type diabetes mellitus without mention of complication, not stated as uncontrolled Type 2 diabetes mellitus with polyneuropathy (HCC) Type II or unspecified type diabetes mellitus with neurological manifestations, not stated as uncontrolled Type 2 diabetes mellitus with diabetic neuropathy, with long-term current use of insulin (HCC) Type 2 diabetes mellitus with hemoglobin A1c goal of less than 8.0% (HCC) HTN, goal below 130/80 Unspecified essential hypertension BPH with obstruction/lower urinary tract symptoms Hypertrophy of prostate with urinary obstruction and other lower urinary tract symptoms (LUTS) documented in this encounter Advance Directives Documents on File Type Date Recorded Patient Paper Cone Maker Expl 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 Advanced Directive Advanced Directive
--- OUTSIDE RECORDS SUMMARY | 2023-07-31 20:29 | External Medical Summary | Summary of Care ---
Author Name Unknown Organization [place] [address] Care Team Providers Care Permastone Mechanic Name Role Phone James Maria DO Primary Care Provider Reason for Referral * Evaluate & Treat - Unlimited Visits (Within 10 days (routine)) Status Reason Specialty Diagnoses / Procedures Referred By Contact Referred To Contact Authorized Specialty Services Required Dermatology Diagnoses History of skin cancer James Maria DO [address] [address] Question Answer Referral Priority Within 10 days [...] Team Description 07/03/[address] [facility] [address] [address] James Maria DO [address] [address] [phone] Referral (derm) Allergies Active Allergy Reactions Severity [...] Reported on 11/05/2020 Blood Glucose Monitoring Suppl ([employer] SYSTEM) W/DEVICE KIT Use as directed 4 times a day as needed for Hyperglycemia (high sugar) or Hypoglycemia (low sugar). Use up to four times a day as directed 1 Kit 0 01/29/2016 Active ONETOUCH ULTRA BLUE STRP USE TO CHECK GLUCOSE 4 TIMES DAILY 100 Strip 0 11/13/2016 Active LOSC ManagementTOUCH DELICA LANCETS 33G MISC USE ONE TO CHECK GLUCOSE 4 TIMES DAILY 100 Each 0 11/13/2016 Active Sildenafil Citrate (VIAGRA) 50 MG TabletIndications:Im potence of organic origin Take 1 Tab by mouth as needed for Erectile Dysfunction. 5 Tab 6 08/24/2017 Active Glucose Blood (Travel.ruUCH VERIO) STRP Use up to 4 times a day E11.9 300 Strip 3 08/24/2017 Active Blood Glucose Monitoring Suppl (Accel DiagnosticsIO) w/Device KITIndications:Type 2 diabetes mellitus with hemoglobin [...] 10 mL 6 02/28/2021 Active ReliOn Pen [place] 32G X 4 MM (Insulin Pen Needle)Indications:T [...] Care Team Description 08/19/2021 Office Visit Podiatry [facility] [address] [address] [phone] 09/05/2021 Office Visit Family Medicine James Maria DO [address] [address] [phone] Scheduled Referrals Name Type Priority Associated Diagnoses [...] Documents on File Type Date Recorded Patient Alarm Adjuster Expl 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
--- OUTSIDE RECORDS SUMMARY | 2023-07-31 20:29 | External Medical Summary | Summary of Care ---
Author Name Unknown Organization [place] [address] Care Team Providers Care Cage Loader Name Role Phone James Maria Primary Care Provider Reason for Visit * Reason Comments Appointment Encounter Details Date Type Department Care Team Description 03/29/2021 Pharmacy Pharmacy, [facility] [address] [facility] [place] [address] [facility] 132 [facility] [place] [address] Type 2 diabetes mellitus with polyneuropathy (HCC)* Allergies Active Allergy Reactions Severity Noted Date Comments Lisinopril Edema face/lips/tongue High 04/05/2018 documented as of this encounter (statuses as of 03/28/2021) Medications Medication Sig Dispensed Refills Start Date End Date Status ciprofloxacin-dexame thasone (CIPRODEX) 0.3-0.1 % otic suspensionIndication s:Mixed hearing loss, unilateral,Chronic mastoiditis,Otitis media 4 DROPS RIGHT EAR ASNEEDED IF WATER GETS IN EAR 7.5 mL 3 01/29/2016 Active Additional Information Patient not taking. Reported on 11/05/2020 Blood Glucose Monitoring Suppl (The Ivory CompanyTOUCH ULTRA SYSTEM) W/DEVICE KIT Use as directed 4 times a day as needed for Hyperglycemia (high sugar) or Hypoglycemia (low sugar). Use up to four times a day as directed 1 Kit 0 01/29/2016 Active Uptake MedicalUCH ULTRA BLUE STRP USE TO CHECK GLUCOSE 4 TIMES DAILY 100 Strip 0 11/13/2016 Active ONETOUCH DELICA LANCETS 33G MISC USE ONE TO CHECK GLUCOSE 4 TIMES DAILY 100 Each 0 11/13/2016 Active Sildenafil Citrate (VIAGRA) 50 MG TabletIndications:Im potence of organic origin Take 1 Tab by mouth as needed for Erectile Dysfunction. 5 Tab 6 08/24/2017 Active Glucose Blood (Chipolo) STRP Use up to 4 times a day E11.9 300 Strip 3 08/24/2017 Active Blood Glucose Monitoring Suppl (Chipolo) w/Device KITIndications:Type 2 diabetes mellitus with hemoglobin A1c goal of 7.0%-8.0% ([facility]) Use as directed. Recommend check glucose levels at least 2 times daily-once in AM before breakfast and once 2 hours after evening meal. 1 Kit 0 05/12/2018 Active NOVOLOG FLEXPEN 100 UNIT/ML SOPNIndications:Type 2 diabetes mellitus with hemoglobin A1c goal of less than 7.0% ([facility]) INJECT 5 UNITS SUBCUTANEOUSLY THREE TIMES DAILY [...] 2 diabetes mellitus with diabetic neuropathy, unspecified ([facility]) Take 1 Tab by mouth daily. 100 [...] 10 mL 6 02/28/2021 Active ReliOn Pen [place] 32G X 4 MM (Insulin Pen Needle)Indications:T ype 2 diabetes mellitus with polyneuropathy (HCC) Use as directed with flexpen 100 Each 6 02/28/2021 Active documented as of this encounter (statuses as of 03/28/2021) Active Problems Problem Noted Date BPH with [...] as of this encounter (statuses as of 03/28/2021) Resolved Problems Problem Noted Date Resolved Date [...] as of this encounter (statuses as of 03/28/2021) Immunizations Name Administration Dates Next Due COVID-19 [...] as of this encounter Progress Notes * Joanne Parrish OSA - 03/28/2021 11:43 AM EDT Patient Phone Numbers Att 2 Left message with patient's , she will talk with patient about scheduling with the [facility] clinic Follow up in 4 weeks if nothing scheduled sooner documented in this encounter Plan of Treatment Upcoming Encounters Date Type Specialty Care Team Description 04/17/2021 Office Visit Podiatry [facility] [address] [place] [address] [phone] 04/26/2021 Pharmacy Pharmacy [facility] [place] [address] [place] [address] 09/05/2021 Office Visit Family Medicine James Maria DO [address] [place] [address] [phone] Health Maintenance Due Date Last Done Comments [...] Documents on File Type Date Recorded Patient Mushroom Farmer Expl anation Advanced Directive service a hi [...]
--- OUTSIDE RECORDS SUMMARY | 2023-07-31 20:29 | External Medical Summary | Summary of Care ---
Author Name Unknown Organization [facility] Address [place] [address] Care Team Providers Care Toeing Stockings Name Role Phone James Maria DO Primary Care Provider Reason for Visit * Reason Onset Date Comments Health Maintenance 05/14/2021 Encounter Details Date Type Department Care Team Description 05/14/2021 Telephone Family Practice [facility] [address] [place] [address] James Maria DO 132 [facility] [place] [address] [phone] Health Maintenance Allergies Active Allergy Reactions Severity Noted Date Comments Lisinopril Edema face/lips/tongue High 04/05/2018 documented as of this encounter (statuses as of 05/14/2021) Medications Medication Sig Dispensed Refills Start Date End Date Status ciprofloxacin-dexame thasone (CIPRODEX) 0.3-0.1 % otic suspensionIndication s:Mixed hearing loss, unilateral,Chronic mastoiditis,Otitis media 4 DROPS RIGHT EAR ASNEEDED IF WATER GETS IN EAR 7.5 mL 3 01/29/2016 Active Additional Information Patient not taking. Reported on 11/05/2020 Blood Glucose Monitoring Suppl (10seconds SoftwareTOUCH ULTRA SYSTEM) W/DEVICE KIT Use as directed 4 times a day as needed for Hyperglycemia (high sugar) or Hypoglycemia (low sugar). Use up to four times a day as directed 1 Kit 0 01/29/2016 Active 10seconds SoftwareTOUCH ULTRA BLUE STRP USE TO CHECK GLUCOSE 4 TIMES DAILY 100 Strip 0 11/13/2016 Active 10seconds SoftwareTOUCH DELICA LANCETS 33G MISC USE ONE TO CHECK GLUCOSE 4 TIMES DAILY 100 Each 0 11/13/2016 Active Sildenafil Citrate (VIAGRA) 50 MG TabletIndications:Im potence of organic origin Take 1 Tab by mouth as needed for Erectile Dysfunction. 5 Tab 6 08/24/2017 Active Glucose Blood (Neovasc) STRP Use up to 4 times a day E11.9 300 Strip 3 08/24/2017 Active Blood Glucose Monitoring Suppl (Neovasc) w/Device KITIndications:Type 2 diabetes mellitus with hemoglobin A1c goal of 7.0%-8.0% ([facility]) Use as directed. Recommend check glucose levels at least 2 times daily-once in AM before breakfast and once 2 hours after evening meal. 1 Kit 0 05/12/2018 Active NOVOLOG FLEXPEN 100 UNIT/ML SOPNIndications:Type 2 diabetes mellitus with hemoglobin A1c goal of less than 7.0% ([facility]) INJECT 5 UNITS SUBCUTANEOUSLY THREE TIMES [...] 2 diabetes mellitus with diabetic neuropathy, unspecified ([facility]) Take 1 Tab by mouth daily. [...] 10 mL 6 02/28/2021 Active ReliOn Pen [place] 32G X 4 MM (Insulin Pen Needle)Indications:T [...] as of this encounter (statuses as of 05/14/2021) Active Problems Problem Noted Date BPH with [...] as of this encounter (statuses as of 05/14/2021) Resolved Problems Problem Noted Date Resolved Date [...] as of this encounter (statuses as of 05/14/2021) Immunizations Name Administration Dates Next Due COVID-19 [...] Miscellaneous Notes * Telephone Encounter - Jeannie Abreu LPN - 05/14/2021 8:24 AM EDT Care Gaps Comprehensive Care Outreach Last Office/Telemedicine Visit: Last Office/Telemedicine Visit: 02/28/2021 Next Office Visit: Next Office Visit: 09/05/2021 Scheduled Provider(s): James Maria DO Reviewed Health Maintenance below Health Maintenance Topic Date Due Yearly B-12 11/16/2020 DIABETES-URINE MICROALBUMIN EVERY 12 MONTHS Already ordered COVID-19 Vaccine (2 - Moderna 2-dose series) 03/22/2021 DIABETES-HGBA1C EVERY 6 MONTHS Already ordered DTaP,Tdap,and Td Vaccines (2 - Td) 10/21/2021 Care Gap Outreach Action Taken: Unable to reach: Unable to reach/invalid number. [facility] Recapture Mailbox full documented in this encounter Plan of Treatment Upcoming Encounters Date Type Specialty Care Team Description 05/27/2021 Pharmacy Pharmacy [facility] [place] [address] [place] [address] 05/29/2021 Office Visit Podiatry Kylie Burroughs, Marga [address] [facility] [place] [address] [phone] 07/25/2021 Office Visit Podiatry [place] [address] [place] [address] [phone] 09/05/2021 Office Visit Family Medicine James Maria DO [address] [place] [address] [phone] Health Maintenance Due Date Last Done Comments [...] on File Type Date Recorded Patient Kiln Remover Expl anation Advanced Directive service a hi [...]
--- OUTSIDE RECORDS SUMMARY | 2023-07-31 20:29 | External Medical Summary | Summary of Care ---
Author Name Unknown Organization [place] [address] Care Team Providers Care Fingerer Name Role Phone Maria James Dyefiliberto Primary Care Provider Reason for Visit * Reason Comments Follow Up nail care Encounter Details Date Type Department Care Team Description 04/17/2021 Office Visit [facility] [place] [address] [facility] 132 [facility] [place] [address] [phone] Onychomycosis*; DM type 2 with diabetic peripheral neuropathy (HCC); Diabetic ulcer of left midfoot associated with type 2 diabetes mellitus, with fat layer exposed (HCC) Allergies Active Allergy Reactions Severity Noted Date Comments Lisinopril Edema face/lips/tongue High 04/05/2018 documented as of this encounter (statuses as of 04/17/2021) Medications Medication Sig Dispensed Refills Start Date End Date Status ciprofloxacin-dexame thasone (CIPRODEX) 0.3-0.1 % otic suspensionIndication s:Mixed hearing loss, unilateral,Chronic mastoiditis,Otitis media 4 DROPS RIGHT EAR ASNEEDED IF WATER GETS IN EAR 7.5 mL 3 01/29/2016 Active Additional Information Patient not taking. Reported on 11/05/2020 Blood Glucose Monitoring Suppl ([employer] ULTRA SYSTEM) W/DEVICE KIT Use as directed [...] 5 Tab 6 08/24/2017 Active Glucose Blood (AtheroMedTOUCH VERIO) STRP Use up to 4 times a day E11.9 300 Strip 3 08/24/2017 Active Blood Glucose Monitoring Suppl (AtheroMedTOJust Fab VERIO) w/Device KITIndications:Type 2 diabetes mellitus with hemoglobin A1c goal of 7.0%-8.0% ([facility]) Use as directed. Recommend check glucose levels at least 2 times daily-once in AM before breakfast and once 2 hours after evening meal. 1 Kit 0 05/12/2018 Active NOVOLOG FLEXPEN 100 UNIT/ML SOPNIndications:Type 2 diabetes mellitus with hemoglobin A1c goal of less than 7.0% ([facility]) INJECT 5 UNITS SUBCUTANEOUSLY THREE [...] 2 diabetes mellitus with diabetic neuropathy, unspecified ([facility]) Take 1 Tab by mouth [...] 10 mL 6 02/28/2021 Active ReliOn Pen [place] 32G X 4 MM (Insulin Pen Needle)Indications:T [...] as of this encounter (statuses as of 04/17/2021) Active Problems Problem Noted Date BPH with [...] as of this encounter (statuses as of 04/17/2021) Resolved Problems Problem Noted Date Resolved Date [...] as of this encounter (statuses as of 04/17/2021) Immunizations Name Administration Dates Next Due COVID-19 [...] Progress Notes * Kylie Burroughs, REMEDIOS - 04/17/2021 3:41 PM EDT Podiatry Established Note [facility] Name: Selvin Sebastian : 1945 Date: 04/17/2021 REASON FOR VISIT: chemistry quality control technician requested patient be evaluated for new left foot ulcer SUBJECTIVE: This patient is a 75 year old male who presents today for nail trimming. Our chemistry quality control technician debrided the nails, but noticed a large open wound to the left plantar foot. He reports stepping on something a few days ago. He is unaware of the wound. He denies pain. He offers no other concerns. 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 General: No apparent distress. Vascular: Pedal pulses palpable including dorsalis pedis and posterior tibial artery at 2/4 bilaterally. Capillary refill time is within normal limits to all toes. Non pitting edema noted. No warmth. Absence of pedal hair growth noted. Neurologic: Sensation (light touch) intact to the bilateral lower extremities. No hypersensitivity. No weakness. No tremor. Musculoskeletal: No pain with palpation of the left plantar foot ulcer. No significant acute deformity. No weakness. Dermatological: Open ulceration left plantar midfoot - 2.0cm x 1.2cm x 0.1cm depth. Wound borders intact. Wound base is pink granular. Maceration noted to both plantar feet. DIAGNOSTIC STUDIES: Hemoglobin AIC Results: Lab Results Component Value Date/Time HEMOGLOBIN A1C - [facility] 13.2 (H) 02/27/2021 11:24 AM HEMOGLOBIN A1C - [facility] 7.4 (H) 03/13/2020 09:26 AM HEMOGLOBIN A1C - [facility] 11.5 (H) 11/16/2019 08:37 AM HEMOGLOBIN A1C - [facility] 14.3 (H) 12/13/2018 03:03 PM ASSESSMENT: ICD-10-CM 1. Onychomycosis B35.1 2. DM type 2 with diabetic peripheral neuropathy ([facility]) E11.42 3. Diabetic ulcer of left midfoot associated with type 2 diabetes mellitus, with fat layer exposed ([facility]) E11.621 L97.422 PLAN: Patient was seen and toenails were addressed by certified chemistry quality control technician Michael Méndez under my supervision. She performed procedure without issue and patient was amendable to this today. MA applied applied bacitracin and dry dressing to the left foot ulcer. He is to limit pressure on the site when possible. Orders Placed This Encounter Medications Silver sulfADIAZINE 1 % External Cream (Silvadene) Sig: Apply topically to affected area daily. Apply to to the left foot ulcer once daily. Cover withdry dressing. Perform once daily. Dispense: 50 g Refill: 1 Amoxicillin-Pot Clavulanate 875-125 MG Oral Tablet (Augmentin) Sig: Take 1 Tab by mouth 2 times a day. Dispense: 14 Tab Refill: 0 He feels tetanus is up to date. Follow up: 2 weeks. They were instructed to contact me sooner with any concerns. Kylie Burroughs DPM * Aida Méndez TECH - 04/17/2021 1:27 PM EDT The patient presents today for foot [...] Encounters Date Type Specialty Care Team Description 04/26/2021 Pharmacy Pharmacy [place] [place] [address] [facility] [place] [address] 05/01/2021 Office Visit Podiatry Kylie Burroughs DPM [address] [facility] [place] [address] [phone] 07/25/2021 Office Visit Podiatry [facility] [address] [place] [address] [phone] 09/05/2021 Office Visit Family Medicine James Maria DO [address] [place] [address] [phone] Health Maintenance Due Date Last Done Comments [...] not stated as uncontrolled Diabetic ulcer of left midfoot associated with type 2 diabetes mellitus, with fat layer exposed (HCC) documented in this encounter Advance Directives Documents on File Type Date Recorded Patient Dietary Service Aide Expl 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
--- OUTSIDE RECORDS SUMMARY | 2023-07-31 20:29 | External Medical Summary | Summary of Care ---
Author Name Unknown Organization [place] [address] Care Team Providers Care Chief Compressor Station Engineer Name Role Phone James Maria Primary Care Provider Reason for Visit * Reason Comments Appointment Encounter Details Date Type Department Care Team Description 05/27/2021 [facility] [address] [facility] [address] Type 2 diabetes mellitus with polyneuropathy (HCC)* Allergies Active Allergy Reactions Severity Noted Date Comments Lisinopril Edema face/lips/tongue High 04/05/2018 documented as of this encounter (statuses as of 05/27/2021) Medications Medication Sig Dispensed Refills Start Date End Date Status ciprofloxacin-dexame thasone (CIPRODEX) 0.3-0.1 % otic suspensionIndication s:Mixed hearing loss, unilateral,Chronic mastoiditis,Otitis media 4 DROPS RIGHT EAR ASNEEDED IF WATER GETS IN EAR 7.5 mL 3 01/29/2016 Active Additional Information Patient not taking. Reported on 11/05/2020 Blood Glucose Monitoring Suppl (SlingTOUCH ULTRA SYSTEM) W/DEVICE KIT Use as directed 4 times a day as needed for Hyperglycemia (high sugar) or Hypoglycemia (low sugar). Use up to four times a day as directed 1 Kit 0 01/29/2016 Active Fair and SquareUCH ULTRA BLUE STRP USE TO CHECK GLUCOSE 4 TIMES DAILY 100 Strip 0 11/13/2016 Active ONETOUCH DELICA LANCETS 33G MISC USE ONE TO CHECK GLUCOSE 4 TIMES DAILY 100 Each 0 11/13/2016 Active Sildenafil Citrate (VIAGRA) 50 MG TabletIndications:Im potence of organic origin Take 1 Tab by mouth as needed for Erectile Dysfunction. 5 Tab 6 08/24/2017 Active Glucose Blood (T[place]) STRP Use up to 4 times a day E11.9 300 Strip 3 08/24/2017 Active Blood Glucose Monitoring Suppl (Tego) w/Device KITIndications:Type 2 diabetes mellitus with hemoglobin [...] 10 mL 6 02/28/2021 Active ReliOn Pen [place] 32G X 4 MM (Insulin Pen Needle)Indications:T [...] as of this encounter (statuses as of 05/27/2021) Active Problems Problem Noted Date BPH with [...] as of this encounter (statuses as of 05/27/2021) Resolved Problems Problem Noted Date Resolved Date [...] as of this encounter (statuses as of 05/27/2021) Immunizations Name Administration Dates Next Due COVID-19 [...] of this encounter Progress Notes * Samina Blunt RP - 05/27/2021 12:16 PM EDT I agree with documented plan of care. Samina Blunt, Pharm D Clinical Pharmacist 05/27/2021, 12:16 PM * Joanne Parrish OSA - 05/27/2021 10:09 AM EDT Selvin Sebastian has not contacted the clinic to schedule/reschedule an appointment for diabetes management per referral from pcp despite multiple requests (via phone, letter and/or [facility]) to doso by our team. Selvin is discharged from the Medication Therapy Disease Management (MTDM) service at this time due to inability to connect via letter, phone and/or MyG after 4 attempts. MICHEL Miller 05/27/2021, 10:09 AM documented in this encounter Plan of Treatment Upcoming Encounters Date Type Specialty Care Team Description 05/31/2021 Office Visit Podiatry Kylie Burroughs, DPM [address] [facility] [place] [address] [phone] 07/25/2021 Office Visit Podiatry [facility] [address] [place] [address] [phone] 09/05/2021 Office Visit Family Medicine James Maria DO [address] [place] [address] [phone] Health Maintenance Due Date Last Done Comments [...] Documents on File Type Date Recorded Patient Plate Stacker Expl anation Advanced Directive service a hi [...]
--- OUTSIDE RECORDS SUMMARY | 2023-07-31 20:29 | External Medical Summary | Summary of Care ---
Author Name Unknown Organization [place] [address] Care Team Providers Care Ferry Engineer Name Role Phone Rylan Mariar Sophy Primary Care Provider Reason for Visit * Reason Comments Follow Up bilat foot wounds Encounter Details Date Type Department Care Team Description 05/31/2021 Office Visit Podiatry [facility] 132 [facility] [place] [address] Kylie Burroughs, DPMarga [facility] [address] Healed ulcer of left foot*; Diabetic ulcer of toe of right foot associated with type 2 diabetes mellitus, with fat layer exposed (HCC); DM type 2 with diabetic peripheral neuropathy (HCC) Allergies Active Allergy Reactions Severity Noted Date Comments Lisinopril Edema face/lips/tongue High 04/05/2018 documented as of this encounter (statuses as of 05/31/2021) Medications Medication Sig Dispensed Refills Start Date End Date Status ciprofloxacin-dexam ethasone (CIPRODEX) 0.3-0.1 % otic suspensionIndicatio ns:Mixed hearing loss, unilateral,Chronic mastoiditis,Otitis media 4 DROPS RIGHT EAR ASNEEDED IF WATER GETS IN EAR 7.5 mL 3 6 Active Additional Information Patient not taking. Reported on 11/05/2020 Blood Glucose Monitoring Suppl (VBOX ULTRA SYSTEM) W/DEVICE KIT Use as directed [...] 10 mL 6 1 Active ReliOn Pen [place] 32G X 4 MM (Insulin Pen Needle)Indications: Type 2 diabetes mellitus with polyneuropathy (HCC) Use as directed with flexpen 100 Each 6 1 Active Silver sulfADIAZINE 1 % External Cream (Silvadene) Apply topically to affected area daily. Apply to to the left foot ulcer once daily. Cover with dry dressing. Perform once daily. 50 g 1 1 Active Amoxicillin-Pot Clavulanate 875-125 MG Oral Tablet (Augmentin) Take 1 Tab by mouth 2 times a day. 14 Tab 0 1 Active Amoxicillin-Pot Clavulanate 875-125 MG Oral Tablet (Augmentin) Take 1 Tab by mouth 2 times a day. 14 Tab 0 1 05/31/20 21 Discontinu ed(Refill) documented as of this encounter (statuses as of 05/31/2021) Active Problems Problem Noted Date BPH with [...] as of this encounter (statuses as of 05/31/2021) Resolved Problems Problem Noted Date Resolved Date [...] as of this encounter (statuses as of 05/31/2021) Immunizations Name Administration Dates Next Due COVID-19 [...] Progress Notes * Kylie Burroughs DPM - 05/31/2021 8:46 AM EDT Podiatry Established Note [facility] Name: Selvin Sebastian : 1945 Date: 05/31/2021 REASON FOR VISIT: follow up diabetic foot ulcer left, new issues - right foot ulcerations SUBJECTIVE: This patient is a 75 year old male who presents today for follow up of a left foot ulceration. His is present. She reports using silvadene once daily. He also has new ulcerations to the tops of right toes 1-2-3. Onset date not given. She reports his right first toenail came off. She has been doing silvadene daily. She also questions bug bites to both sides. He is hard of hearing and gave most history/concerns. Past Medical History: Diagnosis Date Allergic rhinitis [...] Edema face/lips/tongue REVIEW OF SYSTEMS: CONSTITUTIONAL: No fevers EXTREMITIES: Positive for chronic pain in feet SKIN/INTEGUMENTARY: No rash, No itching and Positive for open ulcerations, possible bug bites FOCUSED PODIATRIC EXAM: Vitals: There were no vitals filed for this visit. General: No apparent distress. Vascular: Pedal pulses palpable including dorsalis pedis and posterior tibial artery at 1/4 bilaterally. Capillary refill time is within normal limits to all toes. Non pitting edema noted to both lower legs and feet. No warmth. Neurologic: Sensation (light touch) intact to the bilateral lower extremities. No hypersensitivity. No weakness. No tremor. Musculoskeletal: He does not show signs of pain with palpation of the bilateral foot. No significant deformities noted. No weakness evident. No palpable mass. Dermatological: Left foot ulceration is closed. Some skin excoriation to the plantar aspect of this foot. Small redpapule x 1 anterior ankle. Right foot, small red papule anterior ankle. New ulcerations right foot with no odor, drainage, palpable fluctuance or crepitis: First toe: toenail absent. Open area 0.5cm x 0.4cm, no depth, red granular base. Erythema noted to distal portion of this toe. Second toe: Superficial open ulcer 0.4cm x 0.3cm dorsal aspect. Third toe: Open ulceration 1.0cm x 0.5cm, no depth with red granular base. DIAGNOSTIC STUDIES: Hemoglobin AIC Results: Lab Results Component Value Date/Time HEMOGLOBIN A1C - [facility] 13.2 (H) 02/27/2021 11:24 AM HEMOGLOBIN A1C - [facility] 7.4 (H) 03/13/2020 09:26 AM HEMOGLOBIN A1C - [facility] 11.5 (H) 11/16/2019 08:37 AM HEMOGLOBIN A1C - [facility] 14.3 (H) 12/13/2018 03:03 PM ASSESSMENT: ICD-10-CM 1. Healed ulcer of left foot Z87.2 2. Diabetic ulcer of toe of right foot associated with type 2 diabetes mellitus, with fat layer exposed ([facility]) E11.621 L97.512 3. DM type 2 with diabetic peripheral neuropathy ([facility]) E11.42 PLAN: -Left foot ulcer closed. They are to discontinue daily dressing but still inspect daily. I feel excoriations will improve with d/c of dressing. -Possibility of bug bites. They are to contact this office or PCP if not resolving or if more are noted. -Right foot - new ulcerations. Nurse applied silvadene and dry dressings. They are to do this daily. Given redness, antibiotic prescribed. Post-op shoe provided to offload. He is to weight bear as tolerated in this device. Orders Placed This Encounter Medications Amoxicillin-Pot Clavulanate 875-125 MG Oral Tablet (Augmentin) Sig: Take 1 Tab by mouth 2 times a day. Dispense: 14 Tab Refill: 0 Follow up: 3 weeks Kylie Burroughs DPM documented in this encounter Nursing Notes * Celeste Huber LPN - 05/31/2021 8:44 AM EDT Pt presents with his for 3 week follow up L foot ulcer, also has ulcers on R foot. documented in this encounter Plan of Treatment Upcoming Encounters Date Type Specialty Care Team Description 06/19/2021 Office Visit Podiatry Kylie Burroughs DPM [address] [place] [address] [phone] 07/25/2021 Office Visit Podiatry [facility] [address] [place] [address] [phone] 09/05/2021 Office Visit Family Medicine James Maria DO [address] [place] [address] [phone] Health Maintenance Due Date Last Done Comments [...] as of this encounter Visit Diagnoses Diagnosis Healed ulcer of left foot- Primary Diabetic ulcer of toe of right foot associated with type 2 diabetes mellitus, 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
--- OUTSIDE RECORDS SUMMARY | 2023-07-31 20:29 | External Medical Summary | Summary of Care ---
Author Name Unknown Organization [place] [address] Care Team Providers Care Skiing Teacher Name Role Phone James Maria Primary Care Provider Reason for Visit * Reason Comments Appointment Encounter Details Date Type Department Care Team Description 04/26/2021 Pharmacy Pharm[facility] [address] [facility] [address] Type 2 diabetes mellitus with polyneuropathy (HCC)* Allergies Active Allergy Reactions Severity Noted Date Comments Lisinopril Edema face/lips/tongue High 04/05/2018 documented as of this encounter (statuses as of 04/25/2021) Medications Medication Sig Dispensed Refills Start Date End Date Status ciprofloxacin-dexame thasone (CIPRODEX) 0.3-0.1 % otic suspensionIndication s:Mixed hearing loss, unilateral,Chronic mastoiditis,Otitis media 4 DROPS RIGHT EAR ASNEEDED IF WATER GETS IN EAR 7.5 mL 3 01/29/2016 Active Additional Information Patient not taking. Reported on 11/05/2020 Blood Glucose Monitoring Suppl (CAPS EntrepriseTOUCH ULTRA SYSTEM) W/DEVICE KIT Use as directed 4 times a day as needed for Hyperglycemia (high sugar) or Hypoglycemia (low sugar). Use up to four times a day as directed 1 Kit 0 01/29/2016 Active c-crowdUCH ULTRA BLUE STRP USE TO CHECK GLUCOSE 4 TIMES DAILY 100 Strip 0 11/13/2016 Active ONETOUCH DELICA LANCETS 33G MISC USE ONE TO CHECK GLUCOSE 4 TIMES DAILY 100 Each 0 11/13/2016 Active Sildenafil Citrate (VIAGRA) 50 MG TabletIndications:Im potence of organic origin Take 1 Tab by mouth as needed for Erectile Dysfunction. 5 Tab 6 08/24/2017 Active Glucose Blood (LocalVox Media) STRP Use up to 4 times a day E11.9 300 Strip 3 08/24/2017 Active Blood Glucose Monitoring Suppl (LocalVox Media) w/Device KITIndications:Type 2 diabetes mellitus with hemoglobin A1c goal of 7.0%-8.0% ([facility]) Use as directed. Recommend check glucose levels at least 2 times daily-once in AM before breakfast and once 2 hours after evening meal. 1 Kit 0 05/12/2018 Active NOVOLOG FLEXPEN 100 UNIT/ML SOPNIndications:Type 2 diabetes mellitus with hemoglobin A1c goal of less than 7.0% ([facility]) INJECT 5 UNITS SUBCUTANEOUSLY THREE TIMES [...] 2 diabetes mellitus with diabetic neuropathy, unspecified ([facility]) Take 1 Tab by mouth daily. [...] 10 mL 6 02/28/2021 Active ReliOn Pen [place] 32G X 4 MM (Insulin Pen Needle)Indications:T [...] as of this encounter (statuses as of 04/25/2021) Active Problems Problem Noted Date BPH with [...] as of this encounter (statuses as of 04/25/2021) Resolved Problems Problem Noted Date Resolved Date [...] as of this encounter (statuses as of 04/25/2021) Immunizations Name Administration Dates Next Due COVID-19 [...] Progress Notes * Joanne Parrish OSA - 04/25/2021 1:31 PM EDT Patient Phone Numbers Left message on patients answering machine to schedule [facility] appointment for diabetes management. [facility] message sent --yes Letter sent---no. Clinic will follow up again in 4 week(s). [Attempt # 3] MICHEL Miller 04/25/2021, 1:31 PM documented in this encounter Plan of Treatment Upcoming Encounters Date Type Specialty Care Team Description 05/01/2021 Office Visit Podiatry Kylie Burroughs DPM [address] [place], [place] [address] [address] [phone] 05/27/2021 Pharmacy [facility] [address] [place] [address] 07/25/2021 Office Visit Podiatry [facility] [address] [place] [address] [phone] 09/05/2021 Office Visit Family Medicine James Maria DO [address] [place] [address] [phone] Health Maintenance Due Date Last Done Comments [...] Documents on File Type Date Recorded Patient 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
--- OUTSIDE RECORDS SUMMARY | 2023-07-31 20:29 | External Medical Summary | Summary of Care ---
Author Name Unknown Organization [place] [address] Care Team Providers Care Emergency Medicine Specialist Name Role Phone Yariel Mariavor Sophy Primary Care Provider Reason for Visit * Reason Comments Follow Up R foot Encounter Details Date Type Department Care Team Description 06/27/[address] [facility] 132 [facility] [place] [address] Kylie Burroughs, REMEDIOS 400 [facility] [place] [address] Healed ulcer of right foot*; Maceration of skin; DM type 2 with diabetic peripheral neuropathy (HCC) Allergies Active Allergy Reactions Severity Noted Date Comments Lisinopril Edema face/lips/tongue High 04/05/2018 documented as of this encounter (statuses as of 06/28/2021) Medications Medication Sig Dispensed Refills Start Date End Date Status ciprofloxacin-dexame thasone (CIPRODEX) 0.3-0.1 % otic suspensionIndication s:Mixed hearing loss, unilateral,Chronic mastoiditis,Otitis media 4 DROPS RIGHT EAR ASNEEDED IF WATER GETS IN EAR 7.5 mL 3 01/29/2016 Active Additional Information Patient not taking. Reported on 11/05/2020 Blood Glucose Monitoring Suppl (Silo Labs ULTRA SYSTEM) W/DEVICE KIT Use as directed [...] 5 Tab 6 08/24/2017 Active Glucose Blood (QuorumTOUCH VERIO) STRP Use up to 4 times a day E11.9 300 Strip 3 08/24/2017 Active Blood Glucose Monitoring Suppl (QuorumTOUCH VERIO) w/Device KITIndications:Type 2 diabetes mellitus with hemoglobin A1c goal of 7.0%-8.0% ([facility]) Use as directed. Recommend check glucose levels at least 2 times daily-once in AM before breakfast and once 2 hours after evening meal. 1 Kit 0 05/12/2018 Active NOVOLOG FLEXPEN 100 UNIT/ML SOPNIndications:Type 2 diabetes mellitus with hemoglobin A1c goal of less than 7.0% ([facility]) INJECT 5 UNITS SUBCUTANEOUSLY THREE TIMES [...] mellitus with diabetic neuropathy, unspecified ([facility]) Take 1 Tab by mouth [...] 10 mL 6 02/28/2021 Active ReliOn Pen [place] 32G X 4 MM (Insulin Pen Needle)Indications:T [...] as of this encounter (statuses as of 06/28/2021) Active Problems Problem Noted Date BPH with [...] as of this encounter (statuses as of 06/28/2021) Resolved Problems Problem Noted Date Resolved Date [...] as of this encounter (statuses as of 06/28/2021) Immunizations Name Administration Dates Next Due COVID-19 [...] Progress Notes * Kylie Burroughs, DPM - 06/27/2021 3:42 PM EDT Podiatry Established Note [facility] Name: Selvin Sebastian : 1945 Date: 06/27/2021 REASON FOR VISIT: foot ulcer follow up, no complaints SUBJECTIVE: This patient is a 75 year old male who presents today accompanied by his . He is very hard of hearing. She reports using bandages to the right toes. He has completed a course of Augmentin. He denies pain. They offer no other concerns with the exception of white/wet skin to the bottom of the left forefoot. Past Medical History: Diagnosis Date Allergic rhinitis [...] Edema face/lips/tongue REVIEW OF SYSTEMS: CONSTITUTIONAL: No fevers, sweats, or chills EXTREMITIES: No [...] No weakness evident. No palpable mass. Dermatological: All foot ulcerations are closed. There is diffuse maceration to the plantar left forefoot. DIAGNOSTIC STUDIES: None ASSESSMENT: ICD-10-CM 1. Healed ulcer of right foot Z87.2 2. Maceration of skin L98.8 3. DM type 2 with diabetic peripheral neuropathy (HCC) E11.42 PLAN: -All ulcers appear closed. No open wounds noted. -Maceration to the left foot noted. I applied betadine and allowed the area to dry. I recommended they consider a foot spray or powder on foot/shoes. I encouraged use of socks and recommended they check shoes. Follow up: routine foot care Kylie Burroughs DPM documented in this encounter Nursing Notes * Celeste Huber LPN - 06/27/2021 3:37 PM EDT Pt presents with his for 3 week follow up R foot ulcerations, not painful, wearing post op shoe, completed Augmentin. documented in this encounter Plan of Treatment Upcoming Encounters Date Type Specialty Care Team Description 08/19/2021 Office Visit Podiatry [facility] [address] [place] [address] [phone] 09/05/2021 Office Visit Family Medicine James Maria DO [address] [place] [address] [phone] Health Maintenance Due Date Last Done Comments [...] encounter Visit Diagnoses Diagnosis Healed ulcer of right foot- Primary Maceration of skin Other specified disorder of skin DM type 2 with diabetic peripheral neuropathy (HCC) Type II or unspecified type diabetes mellitus with neurological manifestations, not stated as uncontrolled documented in this encounter Advance Directives Documents on File Type Date Recorded Patient 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
--- OUTSIDE RECORDS SUMMARY | 2023-07-31 20:29 | External Medical Summary | Summary of Care ---
Author Name Unknown Organization [place] [address] Care Team Providers Care Gre Tutor Name Role Phone James Maria Primary Care Provider Reason for Visit * Reason Onset Date Comments Appointment 05/23/2021 Encounter Details Date Type Department Care Team Description 05/23/2021 Telephone Podiatry [facility] 132 [facility] [place] [address] Services, Scheduling [address] [place] [address] Appointment Allergies Active Allergy Reactions Severity Noted Date Comments Lisinopril Edema face/lips/tongue High 04/05/2018 documented as of this encounter (statuses as of 05/23/2021) Medications Medication Sig Dispensed Refills Start Date End Date Status ciprofloxacin-dexame thasone (CIPRODEX) 0.3-0.1 % otic suspensionIndication s:Mixed hearing loss, unilateral,Chronic mastoiditis,Otitis media 4 DROPS RIGHT EAR ASNEEDED IF WATER GETS IN EAR 7.5 mL 3 01/29/2016 Active Additional Information Patient not taking. Reported on 11/05/2020 Blood Glucose Monitoring Suppl (ZeeboTOUCH ULTRA SYSTEM) W/DEVICE KIT Use as directed 4 times a day as needed for Hyperglycemia (high sugar) or Hypoglycemia (low sugar). Use up to four times a day as directed 1 Kit 0 01/29/2016 Active Spare BackupUCH ULTRA BLUE STRP USE TO CHECK GLUCOSE 4 TIMES DAILY 100 Strip 0 11/13/2016 Active ZeeboTOUCH DELICA LANCETS 33G MISC USE ONE TO CHECK GLUCOSE 4 TIMES DAILY 100 Each 0 11/13/2016 Active Sildenafil Citrate (VIAGRA) 50 MG TabletIndications:Im potence of organic origin Take 1 Tab by mouth as needed for Erectile Dysfunction. 5 Tab 6 08/24/2017 Active Glucose Blood (Peanut Labs) STRP Use up to 4 times a day E11.9 300 Strip 3 08/24/2017 Active Blood Glucose Monitoring Suppl (Peanut Labs) w/Device KITIndications:Type 2 diabetes mellitus with hemoglobin [...] less than 8.0% ([facility]) Use up to 4 x a [...] 10 mL 6 02/28/2021 Active ReliOn Pen [place] 32G X 4 MM (Insulin Pen Needle)Indications:T [...] as of this encounter (statuses as of 05/23/2021) Active Problems Problem Noted Date BPH with [...] as of this encounter (statuses as of 05/23/2021) Resolved Problems Problem Noted Date Resolved Date [...] as of this encounter (statuses as of 05/23/2021) Immunizations Name Administration Dates Next Due COVID-19 [...] encounter Miscellaneous Notes * Telephone Encounter - Alessandra Schmidt OSA - 05/23/2021 11:44 AM EDT Scheduled. Patient aware of appt date/time * Telephone Encounter - Rosario Bradshaw LPN - 05/23/2021 11:14 AM EDT Per verbal order Dr. Burroughs please schedule for 05/31/21 @8;40 * Telephone Encounter - Rosario Bradshaw LPN - 05/23/2021 10:52 AM EDT Please advise Diabetic ulcer of left midfoot associated with type 2 diabetes mellitus, with fat layer exposed (HCC) 05/01/21 last visit betadine to the wound and borders, nurse applied this today. Family member instructed to do this once daily x 2 days then switch to silvadene. -He is to continue offloading when possible. 3 week f/u Appt was cx for 05/29/21, * Telephone Encounter - Ellen Ferrell OSA - 05/23/2021 10:30 AM EDT Isiah, Pt had an appt scheduled on 05/29/[address] Burroughs for a 3 wk f/u but was cx due to providers schedule. Next avail is not until 06/17/21 please advise for sooner appt Thank you, Ellen documented in this encounter Plan of Treatment Upcoming Encounters Date Type Specialty Care Team Description 05/27/2021 Pharmacy Pharmacy Anatoly Vogel [address] [place] [address] 05/31/2021 Office Visit Podiatry Kylie Burroughs DPM [address] [place] [address] [place] [address] 07/25/2021 Office Visit Podiatry [facility] [address] [place] [address] [phone] 09/05/2021 Office Visit Family Medicine [facility] James Sophy, [address] [place] [address] [phone] Health Maintenance Due Date Last Done Comments [...] Documents on File Type Date Recorded Patient Industrial Methods Consultant Expl 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
--- OUTSIDE RECORDS SUMMARY | 2023-07-31 20:29 | External Medical Summary | Summary of Care ---
Author Name Unknown Organization [place] [address] Care Team Providers Care Test Borer Helper Name Role Phone Rylan Mariar Sophy Primary Care Provider Reason for Visit * Reason Comments Follow Up bilat foot wounds Encounter Details Date Type Department Care Team Description 05/31/2021 Office Visit Podiatry [facility] 132 [facility] [place] [address] Kylie Burroughs, DPMarga [address] [facility] [address] Healed ulcer of left foot*; [...] Reported on 11/05/2020 Blood Glucose Monitoring Suppl (AbbeyPost ULTRA SYSTEM) W/DEVICE KIT Use as directed [...] 10 mL 6 1 Active ReliOn Pen [place] 32G X 4 MM (Insulin Pen Needle)Indications: [...] 05/31/2021 8:46 AM EDT Podiatry Established Note [facility] Name: Selvin Sebastian : 1945 Date: 05/31/2021 [...] 2 diabetes mellitus, with fat layer exposed ([facility]) E11.621 L97.512 3. DM type 2 with diabetic peripheral neuropathy ([facility]) E11.42 PLAN: -Left foot ulcer closed. They [...] Office Visit Podiatry Kylie Burroughs DPM [address] [place] [address] [phone] 07/25/2021 Office Visit Podiatry [facility] [address] [place] [address] [phone] 09/05/2021 Office Visit Family Medicine James Maria DO [address] [place] [address] [phone] Health Maintenance Due Date Last Done Comments [...] Documents on File Type Date Recorded Patient Front Desk Manager Expl 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
--- OUTSIDE RECORDS SUMMARY | 2023-07-31 20:30 | External Medical Summary ---
Author Name Unknown Address Unknown Organization K01:[facility] - [address] [place] [address] Laboratory Report Ordering Provider Test Date Status MARGARET NAVARRO 02/27/2021 11:24:52 Final Observation Date Value Abnormality Reference (Units ) Status Triglyceride 02/27/2021 11:24:52 65 <=174 ( mg/dL) Final Performing Location [facility] - [address] [place] [address]
--- OUTSIDE RECORDS SUMMARY | 2023-07-31 20:30 | External Medical Summary ---
Author Name Unknown Address Unknown Organization K01:[facility] - [address] [place] [address] Laboratory Report Ordering Provider Test Date Status BENJAMIN BA 02/27/2021 11:24:52 Final Observation Date Value Abnormality Reference (Units ) Status BUN 02/27/2021 11:24:52 14 6-20 (mg/dL) Final Creatinine 02/27/2021 11:24:52 1.0 0.6-1.2 (mg/dL) Final Glomerular filtration rate/1.73 sq M.predicted [Volume Rate/Area] in Serum, Plasma or Blood by Creatinine-based formula (CKD-EPI) 02/27/2021 11:24:52 72.4 >=60.0 (mL/min) Final Performing Location LAB[facility]ORY [facility] - [address] [place] [address]
--- OUTSIDE RECORDS SUMMARY | 2023-07-31 20:30 | External Medical Summary | Summary of Care ---
Author Name Unknown Organization [facility] Address [place] [address] Care Team Providers Care Evp Name Role Phone Mejia Maria DO Primary Care Provider Reason for Visit * Reason Onset Date Comments Medication Refill 02/19/2021 Encounter Details Date Type Department Care Team Description 02/19/2021 Refill Family Practice [facility] [address] [place] [address] Mejia Maria DO [address] [facility] [place] [address] [phone] Chronic right-sided low back pain without sciatica Allergies Active Allergy Reactions Severity Noted Date Comments Lisinopril Edema face/lips/tongue High 04/05/2018 documented as of this encounter (statuses as of 02/19/2021) Medications Medication Sig Dispensed Refills Start Date End Date Status ciprofloxacin-dexam ethasone (CIPRODEX) 0.3-0.1 % otic suspensionIndicatio ns:Mixed hearing loss, unilateral,Chronic mastoiditis,Otitis media 4 DROPS RIGHT EAR ASNEEDED IF WATER GETS IN EAR 7.5 mL 3 6 Active Additional Information Patient not taking. Reported on 11/05/2020 Blood Glucose Monitoring Suppl (Smoltek AB ULTRA SYSTEM) W/DEVICE KIT Use as directed [...] Erectile Dysfunction. 5 Tab 6 7 Active Insulin Pen Needle (RELION PEN NEEDLES) 32G X 4 MM Use as directed with flexpen 100 Each 6 7 Active Glucose Blood (ONETOUCH VERIO) STRP Use up to 4 times a day E11.9 300 Strip 3 7 Active aspirin enteric coated 81 MG TBECIndications:Typ e 2 diabetes mellitus with diabetic neuropathy, unspecified (HCC) Take 1 Tab by mouth daily. 100 Tab 3 8 Active Blood Glucose Monitoring Suppl (ONETOUCH VERIO) [...] WITH MEALS 15 mL 3 9 Active amLODIPine (NORVASC) 5 MG Tablet Take 1 Tab by mouth daily. 90 Tab 3 0 Active atorvaSTATin (LIPITOR) 40 MG Tablet Take 1 Tab by mouth daily. 90 Tab 3 0 Active insulin isophane human (NOVOLIN N RELION) 100 UNIT/ML injectionIndication s:Type 2 diabetes mellitus with polyneuropathy (HCC) Inject 35 Units under the skin at bedtime. 4 Each 5 0 Active MetFORMIN (GLUCOPHAGE) 1000 MG TabletIndications:T ype 2 diabetes mellitus with hemoglobin A1c goal of less than 7.0% (HCC) Take 1 Tab by mouth 2 times a day with morning and evening meals. 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 90 Cap 0 1 Active Cyclobenzaprine HCl 5 MG Oral Tablet (Flexeril)Indicatio ns:Chronic right-sided low back pain without sciatica Take 1 Tab by mouth 3 times a day as needed for Muscle spasms. 30 Tab 0 1 Active cyclobenzaprine (FLEXERIL) 5 MG TabletIndications:C hronic right-sided low back pain without sciatica Take 1 Tab by mouth 3 times a day as needed for Muscle spasms. 30 Tab 0 0 02/20/20 21 Discontinu ed(Refill) tamsulosin (FLOMAX) 0.4 MG Capsule Take 1 Cap by mouth daily. 90 Cap 3 0 02/20/20 21 Discontinu ed(Refill) documented as of this encounter (statuses as of 02/19/2021) Active Problems Problem Noted Date BPH with [...] as of this encounter (statuses as of 02/19/2021) Resolved Problems Problem Noted Date Resolved Date [...] as of this encounter (statuses as of 02/19/2021) Immunizations Name Administration Dates Next Due Pneumococcal [...] Telephone Encounter - Mejia Maria DO - 02/19/2021 11:47 AM EDT Signed Prescriptions: Disp Refills Tamsulosin HCl 0.4 MG Oral Capsule (Flomax)90 Cap 0 Sig: Take 1 Cap by mouth daily. Authorizing Provider: MEJIA MARIA Cyclobenzaprine HCl 5 MG Oral Tablet (Flex*30 Tab 0 Sig: Take 1 Tab by mouth 3 times a day as needed for Muscle spasms. Authorizing Provider: MEJIA MARIA * Telephone Encounter - Priscilla Andrews, linesperson - 02/19/2021 11:01 AM EDT Pending Prescriptions: Disp Refills Tamsulosin HCl 0.4 MG Oral Capsule (Floma*90 Cap 0 Sig: Take 1 Cap by mouth daily. Cyclobenzaprine HCl 5 MG Oral Tablet (Fle*30 Tab 0 Sig: Take 1 Tab by mouth 3 times a day as needed for Muscle spasms. Last Office/Telemedicine Visit: 06/19/2020 Next Office Visit: 02/28/2021 Scheduled Provider(s): Mejia Maria DO If no future appointments scheduled, and last appointment is greater than a year ago, please schedule patient for a follow-up appointment Last date the medication was ordered: 11/21/2019 Pharmacy: [facility] [address] [place] Is this request for a controlled substance?No Urine Drug Screen:No results found for this or any previous visit. Patient Phone Numbers Labs: Lab Results Component Value Date/Time CREAT 1.1 06/01/2020 03:18 PM POTASSIUM 4.5 06/01/2020 03:18 PM TSH 2.18 11/01/2008 10:02 AM LDLCALC 85 06/04/2016 01:48 PM LDLDIRECT 53 01/11/2018 11:20 AM ALT 8 (L) 01/11/2018 11:20 AM HGBA1C 7.4 (H) 03/13/2020 09:26 AM documented in this encounter Plan of Treatment Upcoming Encounters Date Type Specialty Care Team Description 02/28/2021 Office Visit Family Medicine Mejia Maria, DO [address] [place] [address] [phone] 04/17/2021 Office Visit Podiatry [facility] [address] [place] [address] [phone] Health Maintenance Due Date Last Done Comments DIABETES-HGBA1C EVERY 6 MONTHS 09/13/2020 03/13/2020, 11/16/2019, 12/13/2018, Additional history exists DIABETES-FOOT EXAM 10/13/2020 10/13/2019, 0 06/07/2018, 05/13/2017, Additional history exists Yearly B-12 11/16/2020 11/16/2019, 01/11/2018 *DEPRESSION SCREENING,ANNUAL FOR PTS 12 AND OVER 11/24/2020 DIABETES-EYE EXAM 12/15/2020 12/15/2019, , 02/28/2013, Additional history exists DIABETES-URINE MICROALBUMIN EVERY 12 MONTHS 03/13/2021 03/13/2020, 12/13/2018, 01/11/2018, Additional history exists DTaP,Tdap,and Td Vaccines (2 - Td) 10/21/2021 10/21/2011, 11/09/2003 Pneumococcal Vaccine: 65+ Years Completed 12/24/2015, 07/23/2011 Zoster Vaccines Completed 03/13/2020, 11/03, 08/03/2012 Influenza Vaccine (FLU shot) Completed 12/2019, 08/22/2019, 10/21/2018, Additional history exists MENINGOCOCCAL (MENACTRA/MENVEO) Aged Out No longer eligible based on patient's age to complete this topic documented as of this encounter Implants Not on filedocumented as of this encounter Visit Diagnoses Diagnosis Chronic right-sided low back pain without sciatica documented in this encounter Advance Directives Documents on File Type Date Recorded Patient Major Gifts Manager Expl 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
--- OUTSIDE RECORDS SUMMARY | 2023-07-31 20:30 | External Medical Summary ---
Author Name Unknown Address Unknown Organization K01:[facility] [place] [address] [address] [place] [address] Laboratory Report Ordering Provider Test Date Status BENJAMIN BA 02/27/2021 11:24:52 Final Observation Date Value Abnormality Reference (Units ) Status SYNC LEUKOCYTES IN BLOOD BY AUTOMATED COUNT 02/27/2021 11:24:52 9.72 4.00-10.80 (K/uL) Final Segs 02/27/2021 11:24:52 62.1 40.0-75.0 (%) Final Lymphs % 02/27/2021 11:24:52 29.4 18.0-42.0 (%) Final Monos 02/27/2021 11:24:52 6.0 1.0-11.0 (%) Final Eosinophils 02/27/2021 11:24:52 1.6 0.0-6.0 (%) Final Basos 02/27/2021 11:24:52 0.6 0.0-2.0 (%) Final Immature Granulocyte, Percent 02/27/2021 11:24:52 0.3 0.0-2.0 (%) Final Absolute Segs 02/27/2021 11:24:52 6.03 1.80-7.70 (K/uL) Final Lymphs, absolute 02/27/2021 11:24:52 2.86 1.00-4.80 (K/ul) Final Monos, Abs 02/27/2021 11:24:52 0.58 0.00-1.10 (K/uL) Final Eos, Abs 02/27/2021 11:24:52 0.16 0.00-0.70 (K/uL) Final Basos, Abs 02/27/2021 11:24:52 0.06 0.00-0.20 (K/uL) Final Immature Granulocytes, Number 02/27/2021 11:24:52 0.03 0.00-0.20 (K/uL) Final Performing Location [facility] [place] [address] [facility] [address]
--- OUTSIDE RECORDS SUMMARY | 2023-07-31 20:30 | External Medical Summary ---
Author Name Unknown Address Unknown Organization K01:[facility] - [address] [place] [address] Laboratory Report Ordering Provider Test Date Status BENJAMIN BA 02/27/2021 11:24:52 Final Observation Date Value Abnormality Reference (Units ) Status HbA1C 02/27/2021 11:24:52 13.2 Above high normal 4. 0-5.6 (%) Final Performing Location [facility] - [address] [place] [address]
--- OUTSIDE RECORDS SUMMARY | 2023-07-31 20:30 | External Medical Summary | Summary of Care ---
Author Name Unknown Organization [facility] [place] [address] Care Team Providers Care Hot Roll Inspector Name Role Phone James Maria DO Primary [...] of insulin ([facility]) James Maria DO [address] [place] [address] Question Answer Referral Priority Within 10 days [...] have his medication therapy managed by the [facility] Medication Therapy Disease Management Clinic ([facility]) per established policies, procedures, and protocols. I also certify that this referral may serve as an initiation of service for the management of drug therapy in the above noted patient. [facility] providers will be responsible for scheduling patient visits, obtaining appropriate laboratory studies, and adjusting medication management therapy per patient's need, in addition to those roles spelled out in the clinic policy, procedures, and drug management protocols. I understand that the service provided by the [facility] is voluntary and have informed patient that they can refuse the service at their discretion. I am aware that the [facility] Clinic will provide me with a copy of the patient encounter via my [employer]. I authorize the [facility] to carry out these activities on my behalf. I consider this program to be a necessary part of the patient's medical care. James Maria DO Electronically signed by James Maria DO at Reason for Visit * Reason Comments Re-Check Pt here for recheck, no concers Encounter Details Date Type Department Care Team Description 02/28/2021 Office Visit [facility] [address] [place] [address] James Maria [...] as of this encounter (statuses as of 02/28/2021) Medications Medication Sig Dispensed Refills Start Date End Date Status ciprofloxacin-dexam ethasone (CIPRODEX) 0.3-0.1 % otic suspensionIndicatio ns:Mixed hearing loss, unilateral,Chronic mastoiditis,Otitis media 4 DROPS RIGHT EAR ASNEEDED IF WATER GETS IN EAR 7.5 mL 3 6 Active Additional Information Patient not taking. Reported on 11/05/2020 Blood Glucose Monitoring Suppl ([employer] ULTRA SYSTEM) W/DEVICE KIT Use as directed [...] goal of less than 7.0% ([facility]) INJECT 5 UNITS SUBCUTANEOUSLY THREE [...] 10 mL 6 1 Active ReliOn [place] 32G X 4 MM (Insulin Pen Needle)Indications: [...] as of this encounter (statuses as of 02/28/2021) Active Problems Problem Noted Date BPH with [...] as of this encounter (statuses as of 02/28/2021) Resolved Problems Problem Noted Date Resolved Date [...] as of this encounter (statuses as of 02/28/2021) Immunizations Name Administration Dates Next Due COVID-19 [...] getting an eye exam done outside of [facility] please tell your Eye Doctor to fax or mail us the results of your Diabetic Eye Exam at your next visit. Our Address and Fax Number are listed below to help. Thank you for helping us to improve your Diabetes Care Our Office Address and Fax Number: James Maria DO [address] [place] [address] Diabetic Retinopathy: Evaluating Your Eyes Diabetic retinopathy [...] information about this test. Date Last Reviewed: 04/02/[id number] [employer] [address] [place] [address], [place] [address]. All rights reserved. This information is not [...] calluses yourself. Talk to your doctor or wardrobe consultant (a doctor who specializes in foot care) [...] the area doesnt appear to be healing. [id number] [employer], [address] [place] [address], [place] [address]. All rights reserved. This information is not intended as a substitute for professional medical care. Always follow your healthcare professional's instructions. documented in this encounter Progress Notes * Celina Mcqueen LPN - 02/28/2021 2:39 [...] 2. Type 2 diabetes mellitus with polyneuropathy (HCC) - Insulin NPH (Human) (Isophane) 100 UNIT/ML Subcutaneous Suspension (NovoLIN N ReliOn); Inject 35 Units under the skin at bedtime. Dispense: 4 Each; Refill: 1 - Insulin Regular Human 100 UNIT/ML Injection Solution (NovoLIN R ReliOn); INJECT 5 UNITS SUBCUTANEOUSLY THREE TIMES DAILY BEFORE MEALS Dispense: 10 mL; Refill: 6 - ReliOn [place] 32G X 4 MM (Insulin Pen Needle); Use as directed with flexpen Dispense: 100 Each; Refill: 6 - [facility] MGMT REFERRAL OP 3. Type 2 diabetes mellitus with diabetic neuropathy, with long-term current use of insulin (HCC) - HEMOGLOBIN A1C; Future - [facility]ARMAC[facility] MGMT REFERRAL OP 4. Type 2 diabetes mellitus with hemoglobin A1c goal of less than 8.0% ([facility]) 5. 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 Past Medical History: Diagnosis Date Allergic rhinitis 2004 BPH with obstruction/lower urinary tract symptoms 03/13/2020 Chronic mastoiditis 2004 Diabetes mellitus ([facility]) Dysfunction of eustachian tube 2004 [...] performed by Agustin Saravia MD at [facility] FOOT/TOE SURGERY NEC 11/14 L foot deformity L-/S-SPINE PARAVERTEBRAL FACET INJ,1 LEVEL 05/03/2020 L-/S-SPINE PARAVERTEBRAL FACET INJ, 1 LEVEL performed by Avtar Merchant DO at [facility] MASTOID SURGERY REVISION/APICECTOMY age 18 [facility] [place] SHOULDER ARTHROSCOPY SURGERY 01/07 spur removed Current Outpatient Medications Medication Sig Dispense Refill Insulin NPH (Human) (Isophane) 100 UNIT/ML Subcutaneous Suspension (NovoLIN N ReliOn) Inject 35Units under the skin at bedtime. 4 Each 1 Insulin Regular Human 100 UNIT/ML Injection Solution (NovoLIN R ReliOn) INJECT 5 UNITS SUBCUTANEOUSLY THREE TIMES DAILY BEFORE MEALS 10 mL 6 ReliOn [place] 32G X 4 MM (Insulin Pen Needle) [...] 15 mL 3 Blood Glucose Monitoring Suppl (ONETOUCH VERIO) w/Device KIT Use as directed. Recommend check glucose levels at least 2 times daily-once in AM before breakfast and once 2 hours after evening meal. 1 Kit 0 Glucose Blood (ONETOUCH VERIO) STRP Use up to 4 times a day E11.9 300 Strip 3 ONETOUCH DELICA LANCETS 33G MISC USE ONE [...] Reactions Lisinopril Edema face/lips/tongue James Maria DO Family Practice [facility] [address] [facility] [place] [address] I spent 35-45 minutes reviewing this patients [...] Care Team Description 04/17/2021 Office Visit Podiatry [facility] [address] [address] [phone] 09/05/2021 Office Visit Family Medicine James Maria DO [address] [address] [phone] Scheduled Orders Name Type Priority Associated Diagnoses [...] Documents on File Type Date Recorded Patient Highway Maintenance Supervisor Expl 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 Advanced Directive Advanced Directive
--- OUTSIDE RECORDS SUMMARY | 2023-07-31 20:30 | External Medical Summary | Summary of Care ---
Author Name Unknown Organization [facility] Address [place] [address] Care Team Providers Care Game Technician Name Role Phone Mejia Maria DO Primary Care Provider Reason for Visit * Reason Onset Date Comments Medication Refill 02/19/2021 Encounter Details Date Type Department Care Team Description 02/19/2021 Refill Family Practice [facility] [address] [place] [address] Mejia Maria DO [address] [place] [address] [phone] Type 2 diabetes mellitus with diabetic neuropathy, unspecified (HCC); Chronic right-sided low back pain without sciatica; Type 2 diabetes mellitus with polyneuropathy (HCC); Type 2 diabetes mellitus with hemoglobin A1c goal of less than 8.0% (HCC); Type 2 diabetes mellitus with hemoglobin A1c goal of less than 7.0% ([facility]) Allergies Active Allergy Reactions Severity Noted Date Comments Lisinopril Edema face/lips/tongue High 04/05/2018 documented as of this encounter (statuses as of 02/20/2021) Medications Medication Sig Dispensed Refills Start Date End Date Status ciprofloxacin-dexam ethasone (CIPRODEX) 0.3-0.1 % otic suspensionIndicatio ns:Mixed hearing loss, unilateral,Chronic mastoiditis,Otitis media 4 DROPS RIGHT EAR ASNEEDED IF WATER GETS IN EAR 7.5 mL 3 03/29/201 6 Active Additional Information Patient not taking. Reported on 11/05/2020 Blood Glucose Monitoring Suppl ([employer] ULTRA SYSTEM) W/DEVICE KIT Use as directed [...] BEFORE MEALS 10 mL 0 1 Active amLODIPine Besylate 5 MG [...] daily. 90 Tab 1 1 Active Insulin NPH (Human) (Isophane) 100 UNIT/ML Subcutaneous Suspension (NovoLIN N ReliOn)Indications: Type 2 diabetes mellitus with polyneuropathy (HCC) Inject 35 Units under the skin at bedtime. 4 Each 1 1 Active Insulin Syringe-Needle U-100 30G [...] evening meals. 180 Tab 1 1 Active aspirin enteric coated 81 MG TBECIndications:Typ e 2 diabetes mellitus with diabetic neuropathy, unspecified (HCC) Take 1 Tab by mouth daily. 100 Tab 3 8 02/20/20 21 Discontinu ed(Refill) amLODIPine (NORVASC) 5 MG Tablet Take 1 Tab by mouth daily. 90 Tab 3 0 02/20/20 21 Discontinu ed(Refill) atorvaSTATin (LIPITOR) 40 MG Tablet Take 1 Tab by mouth daily. 90 Tab 3 0 02/20/20 21 Discontinu ed(Refill) insulin isophane human (NOVOLIN N RELION) 100 UNIT/ML injectionIndication s:Type 2 diabetes mellitus with polyneuropathy (HCC) Inject 35 Units under the skin at bedtime. 4 Each 5 0 02/20/20 21 Discontinu ed(Refill) MetFORMIN (GLUCOPHAGE) 1000 MG TabletIndications:T ype 2 diabetes mellitus with hemoglobin A1c goal of less than 7.0% (HCC) Take 1 Tab by mouth 2 times a day with morning and evening meals. 180 Tab 3 0 02/20/20 21 Discontinu ed(Refill) Insulin Syringe-Needle U-100 (RELION INSULIN SYRINGE) 30G X 5/16" 0.3 ML MISCIndications:Typ e 2 diabetes mellitus with polyneuropathy (HCC),Type 2 diabetes mellitus with hemoglobin A1c goal of less than 8.0% (HCC) Use up to 4 x a day for insulin dosing E11.9 3 Each 3 0 02/20/20 21 Discontinu ed(Refill) documented as of this encounter (statuses as of 02/20/2021) Active Problems Problem Noted Date BPH with [...] as of this encounter (statuses as of 02/20/2021) Resolved Problems Problem Noted Date Resolved Date [...] as of this encounter (statuses as of 02/20/2021) Immunizations Name Administration Dates Next Due Pneumococcal [...] encounter Miscellaneous Notes * Telephone Encounter - Cristian Morales, [facility] - 02/20/2021 9:49 AM EDT Signed Prescriptions: Disp Refills amLODIPine Besylate 5 MG Oral Tablet (Norv*90 Tab 1 Sig: Take 1 Tab by mouth daily. Authorizing Provider: MEJIA MARIA Ordering User: CRISTIAN MORALES Aspirin EC 81 MG Oral Tablet Delayed Relea*100 Tab1 Sig: Take 1 Tab by mouth daily. Authorizing Provider: MEJIA MARIA Ordering User: CRISTIAN MORALES Caleb rvastatin Calcium 40 MG Oral Tablet (Li*90 Tab 1 Sig: Take 1 Tab by mouth daily. Authorizing Provider: MEJIA MARIA Ordering User: CRISTIAN MORALES Insulin NPH (Human) (Isophane) 100 UNIT/ML*4 Each 1 Sig: Inject 35 Units under the skin at bedtime. Authorizing Provider: MEJIA MARIA Ordering User: CRISTIAN MORALES Insulin Syringe-Needle U-100 30G X 5/16" 0*3 Each 1 Sig: Use up to 4 x a day for insulin dosing E11.9 Authorizing Provider: MEJIA MARIA Ordering User: CRISTIAN MORALES metFORMIN HCl 1000 MG Oral Tablet (Glucoph*180 Tab1 Sig: Take 1 Tab by mouth 2 times a day with morning and evening meals. Authorizing Provider: MEJIA MARIA Ordering User: CRISTIAN MORALES Electronically signed by Cristian Morales [facility] at 02/20/2021 9:49 AM EDT * Telephone Encounter - Cristian Morales [facility] - 02/20/2021 9:49 AM EDT Protocol met. Refills sent to pharmacy. 90 days with 1 refill given Thanks and have a great day, Cristian Morales Clinical Pharmacist Pharmacy Refill Call Center 02/20/2021, 9:49 AM Electronically signed by Cristian Morales [facility] at 02/20/2021 9:49 AM EDT * Telephone Encounter - Priscilla Andrews firmware software verification engineer - 02/19/2021 10:[address] [facility] pharmacy calling for refills to be transferred Pending Prescriptions: Disp Refills amLODIPine Besylate 5 MG Oral Tablet (Nor*90 Tab 0 Sig: Take 1 Tab by mouth daily. Aspirin EC 81 MG Oral Tablet Delayed Rele*100 Tab0 Sig: Take 1 Tab by mouth daily. Atorvastatin Calcium 40 MG Oral Tablet (L*90 Tab 0 Sig: Take 1 Tab by mouth daily. Insulin NPH (Human) (Isophane) 100 UNIT/M*4 Each 0 Sig: Inject 35 Units under the skin at bedtime. Insulin Syringe-Needle U-100 30G X 5/16" *3 Each 3 Sig: Use up to 4 x a day for insulin dosing E11.9 metFORMIN HCl 1000 MG Oral Tablet (Glucop*180 Tab0 Sig: Take 1 Tab by mouth 2 times a day with morning and evening meals. Last Office/Telemedicine Visit: 06/19/2020 Next Office Visit: 02/28/2021 Scheduled Provider(s): Mejia Maria DO If no future appointments scheduled, and last appointment is greater than a year ago, please schedule patient for a follow-up appointment Last date the medication was ordered: 06/19/2020 Pharmacy: [facility] [address] [address] [address] [place] Is this request for a [...] Description 02/28/2021 Office Visit Family Medicine Mejia Maria DO [address] [place] [address] [phone] 04/17/2021 Office Visit Podiatry [facility] [address] [address] [phone] Health Maintenance Due Date Last Done Comments [...] diabetes mellitus with diabetic neuropathy, unspecified (HCC) Chronic right-sided low back pain without sciatica Type 2 diabetes mellitus with polyneuropathy (HCC) Type II or unspecified type diabetes mellitus with neurological manifestations, not stated as uncontrolled Type 2 diabetes mellitus with hemoglobin A1c goal of less than 8.0% (HCC) Type 2 diabetes mellitus with hemoglobin A1c goal of less than 7.0% (HCC) documented in this encounter Advance Directives Documents on File Type Date Recorded Patient Rehabilitation Construction Specialist Expl 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
--- OUTSIDE RECORDS SUMMARY | 2023-07-31 20:30 | External Medical Summary ---
Author Name Unknown Address Unknown Organization K01:[facility] [address] [place] [address] Laboratory Report Ordering Provider Test Date Status BENJAMIN BA 02/27/2021 11:24:52 Final Observation Date Value Abnormality Reference (Units ) Status WBC, Total 02/27/2021 11:24:52 9.72 4.00-10.8 0 (K/uL) Final RBC 02/27/2021 11:24:52 4.93 4.50-5.25 (M/uL) Final Hemoglobin 02/27/2021 11:24:52 14.6 14.0-16.8 (g/dL) Final Performing Location [facility] [address] [place] [address]
--- OUTSIDE RECORDS SUMMARY | 2023-07-31 20:30 | External Medical Summary | Summary of Care ---
Author Name Unknown Organization [place] [address] Care Team Providers Care Medical Billing Manager Name Role Phone Mejia Maria DO Primary Care Provider Reason for Visit * Reason Comments eRx-Medication Refill Encounter Details Date Type Department Care Team Description 02/01/2021 Refill Pharmacy, [facility] [address] [place] [address] Mejia Maria DO [address] [place] [address] [phone] Type 2 diabetes mellitus with polyneuropathy (HCC) Allergies Active Allergy Reactions Severity Noted Date Comments Lisinopril Edema face/lips/tongue High 04/05/2018 documented as of this encounter (statuses as of 02/04/2021) Medications Medication Sig Dispensed Refills Start Date End Date Status ciprofloxacin-dexa methasone (CIPRODEX) 0.3-0.1 % otic suspensionIndicati ons:Mixed hearing loss, unilateral,Chronic mastoiditis,Otitis media 4 DROPS RIGHT EAR ASNEEDED IF WATER GETS IN EAR 7.5 mL 3 6 Active Additional Information Patient not taking. Reported on 11/05/2020 Blood Glucose Monitoring Suppl ([employer] ULTRA SYSTEM) W/DEVICE KIT Use as directed [...] 7 Active aspirin enteric coated 81 MG TBECIndications:Ty pe 2 diabetes mellitus with diabetic neuropathy, unspecified (HCC) Take 1 Tab by mouth daily. 100 Tab 3 8 Active Blood Glucose Monitoring Suppl (ONETOUCH VERIO) w/Device KITIndications:Typ e 2 diabetes mellitus with hemoglobin A1c goal of 7.0%-8.0% (HCC) Use as directed. Recommend check glucose levels at least 2 times daily-once in AM before breakfast and once 2 hours after evening meal. 1 Kit 0 8 Active NOVOLOG FLEXPEN 100 UNIT/ML SOPNIndications:Ty pe 2 diabetes mellitus with hemoglobin A1c goal of less than 7.0% (HCC) INJECT 5 UNITS SUBCUTANEOUSLY THREE TIMES DAILY WITH MEALS 15 mL 3 9 Active cyclobenzaprine (FLEXERIL) 5 MG TabletIndications: Chronic right-sided low back pain without sciatica Take 1 Tab by mouth 3 times a day as needed for Muscle spasms. 30 Tab 0 0 Active amLODIPine (NORVASC) 5 MG Tablet Take 1 Tab by mouth daily. 90 Tab 3 0 Active atorvaSTATin (LIPITOR) 40 MG Tablet Take 1 Tab by mouth daily. 90 Tab 3 0 Active insulin isophane human (NOVOLIN N RELION) 100 UNIT/ML injectionIndicatio ns:Type 2 diabetes mellitus with polyneuropathy (HCC) Inject 35 Units under the skin at bedtime. 4 Each 5 0 Active MetFORMIN (GLUCOPHAGE) 1000 MG TabletIndications: Type 2 diabetes mellitus with hemoglobin A1c goal of less than 7.0% (HCC) Take 1 Tab by mouth 2 times a day with morning and evening meals. 180 Tab 3 0 Active tamsulosin (FLOMAX) 0.4 MG Capsule Take 1 Cap by mouth daily. 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 4 Each 5 0 021 Discontinued documented as of this encounter (statuses as of 02/04/2021) Active Problems Problem Noted Date BPH with [...] as of this encounter (statuses as of 02/04/2021) Resolved Problems Problem Noted Date Resolved Date [...] as of this encounter (statuses as of 02/04/2021) Immunizations Name Administration Dates Next Due Pneumococcal [...] Telephone Encounter - Mejia Maria DO - 02/04/2021 9:44 AM EDT Signed Prescriptions: Disp Refills NovoLIN R ReliOn 100 UNIT/ML Injection Cathryn*10 mL 0 Sig: INJECT 5 UNITS SUBCUTANEOUSLY THREE TIMES DAILY BEFORE MEALS Authorizing Provider: MEJIA MARIA * Telephone Encounter - Lashaun Call LPN - 02/04/2021 8:51 AM EDT Pending Prescriptions: Disp Refills NovoLIN R ReliOn 100 UNIT/ML Injection So*10 mL 0 Sig: INJECT 5 UNITS SUBCUTANEOUSLY THREE TIMES DAILY BEFORE MEALS * Telephone Encounter - Lashaun Call LPN - 02/04/2021 8:05 AM EDT Pending Prescriptions: Disp Refills NovoLIN R ReliOn 100 UNIT/ML Injection So*10 mL 0 Sig: INJECT 5 UNITS SUBCUTANEOUSLY THREE TIMES DAILY BEFORE MEALS Last Office/Telemedicine Visit: 06/19/2020 Next Office Visit: 02/28/21 Last date the medication was ordered: 06/19/2020 Patient Active Problem List Diagnosis Code Mixed conductive and sensorineural hearing loss of right ear with restricted hearing of left ear H90.A31 Type 2 diabetes mellitus with hemoglobin A1c goal of less than 8.0% ([facility]) E11.9 Dyslipidemia E78.5 HTN, goal below 130/80 I10 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, bilateral M21.961, M21.962 Type 2 diabetes mellitus with polyneuropathy ([facility]) E11.42 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, 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, 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 Labs: Lab Results Component Value Date/Time CREATININE - [facility] 1.1 06/01/2020 03:18 PM CREATININE, RANDOM URINE - [facility] 113 03/13/2020 01:44 PM Lab Results Component Value Date/Time POTASSIUM - [facility] 4.5 06/01/2020 03:18 PM Lab Results Component Value Date/Time TSH - [facility] 2.18 11/01/2008 10:02 AM Lab Results Component Value Date/Time LDL CHOLESTEROL (CALCULATED) - [facility] 85 06/04/2016 01:48 PM LDL CHOLESTEROL (CALCULATED) - [facility] 110 02/13/2015 09:41 AM LDL CHOLESTEROL (DIRECT MEASURE) - [facility] 53 01/11/2018 11:20 AM LDL CHOLESTEROL (DIRECT MEASURE) - [facility] 54 09/10/2017 11:28 AM Lab Results Component Value Date/Time ALT - [facility] 8 (L) 01/11/2018 11:20 AM Hemoglobin AIC Results: Lab Results Component Value Date/Time HEMOGLOBIN A1C - [facility] 7.4 (H) 03/13/2020 09:26 AM HEMOGLOBIN A1C - [facility] 11.5 (H) 11/16/2019 08:37 AM HEMOGLOBIN A1C - [facility] 14.3 (H) 12/13/2018 03:03 PM documented in this encounter Plan of Treatment Upcoming Encounters Date Type Specialty Care Team Description 02/28/2021 Office Visit Family Medicine Mejia Maria, [address] [address] [phone] 04/17/2021 Office Visit Podiatry [facility] [address] [address] [phone] Health Maintenance Due Date Last Done Comments [...] Diagnosis Type 2 diabetes mellitus with polyneuropathy (HCC) Type II or unspecified type diabetes mellitus with neurological manifestations, not stated as uncontrolled documented in this encounter Advance Directives Documents on File Type Date Recorded Patient Powder 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
--- OUTSIDE RECORDS SUMMARY | 2023-07-31 20:30 | External Medical Summary | Summary of Care ---
Author Name Unknown Organization [facility] [place] [address] Care Team Providers Care Wireless Store Manager Name Role Phone James Maria DO [...] neuropathy, with long-term current use of insulin ([facility]) James Maria DO [address] [place] [address] Question Answer Referral Priority Within 10 days [...] have his medication therapy managed by the [facility] Medication Therapy Disease Management [facility] ([facility]) per established policies, procedures, and protocols. I also certify that this referral may serve as an initiation of service for the management of drug therapy in the above noted patient. [facility] providers will be responsible for scheduling patient visits, obtaining appropriate laboratory studies, and adjusting medication management therapy per patient's need, in addition to those roles spelled out in the clinic policy, procedures, and drug management protocols. I understand that the service provided by the [facility] is voluntary and have informed patient that they can refuse the service at their discretion. I am aware that the [facility] Clinic will provide me with a copy of the patient encounter via my [employer]. I authorize the [facility] to carry out these activities on my behalf. I consider this program to be a necessary part of the patient's medical care. James Maria DO Electronically signed by James Maria DO at Reason for Visit * Reason Comments Re-Check Pt here for recheck, no concers Encounter Details Date Type Department Care Team Description 02/28/2021 Office Visit [facility] [address] [address] James Maria DO [...] Reported on 11/05/2020 Blood Glucose Monitoring Suppl ([employer] ULTRA SYSTEM) W/DEVICE KIT Use as directed [...] hemoglobin A1c goal of less than 7.0% ([facility]) INJECT 5 UNITS SUBCUTANEOUSLY THREE TIMES [...] 10 mL 6 1 Active ReliOn Pen [place] 32G X 4 MM (Insulin Pen Needle)Indications: [...] * Patient Instructions* Celina Lau LPN - 02/28/2021 2:09 PM EDT Images from the original note were not included. Dear Selvin Sebastian, The care of your Diabetes is very important to us. A yearly diabetic eye exam is important to protect your vision. If youre getting an eye exam done outside of [facility] please tell your Eye Doctor to fax or mail us the results of your Diabetic Eye Exam at your next visit. Our Address and Fax Number are listed below to help. Thank you for helping us to improve your Diabetes Care Our Office Address and Fax Number: James Maria DO [address] [place] [address] Diabetic Retinopathy: Evaluating Your Eyes Diabetic retinopathy [...] information about this test. Date Last Reviewed: 04/02/201619998768-9000 [employer]. [address] [place] [address], [place] [address]. All rights reserved. This information is not [...] calluses yourself. Talk to your doctor or air sealing technician (a doctor who specializes in foot care) [...] the area doesnt appear to be healing. [id number] [employer], [address] [place] [address], [place] [address]. All rights reserved. This information is not intended as a substitute for professional medical care. Always follow your healthcare professional's instructions. documented in this encounter Progress Notes * Celina Lau LPN - 02/28/2021 2:09 PM EDT The importance of having a yearly diabetic eye exam has been discussed with patient. Order and/or Referral placed along with patient instructions. Provider made aware. * James Maria, DO - 02/28/2021 2:07 PM EDT Nursing Notes: Celina Lau, TONY 02/28/21 1407 Signed The patient has been properly identified by confirmation of name and date of . Chief Complaint Patient presents with Re-Check Pt here for recheck, no concers ASSESSMENT/PLAN: 1. DM type 2 nursing care encounter (HCC) - TELEMEDICINE DIABETIC EYE - PHARMACIST MEDS THERAPY MGMT REFERRAL OP 2. Type 2 diabetes mellitus with polyneuropathy ([facility]) - Insulin NPH (Human) (Isophane) 100 UNIT/ML Subcutaneous Suspension (NovoLIN N ReliOn); Inject 35 Units under the skin at bedtime. Dispense: 4 Each; Refill: 1 - Insulin Regular Human 100 UNIT/ML Injection Solution (NovoLIN R ReliOn); INJECT 5 UNITS SUBCUTANEOUSLY THREE TIMES DAILY BEFORE MEALS Dispense: 10 mL; Refill: 6 - ReliOn Pen [place] 32G X 4 MM (Insulin Pen Needle); Use as directed with flexpen Dispense: 100 Each; Refill: 6 - PHARMACIST MEDS THERAPY MGMT REFERRAL OP 3. Type 2 diabetes mellitus with diabetic neuropathy, with long-term current use of insulin ([facility]) - HEMOGLOBIN A1C; Future - PHARMACIST MEDS THERAPY MGMT REFERRAL OP 4. Type 2 diabetes mellitus with hemoglobin A1c goal of less than 8.0% ([facility]) 5. HTN, goal below 130/80 6. 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 Past Medical History: Diagnosis Date Allergic rhinitis 2004 BPH with obstruction/lower urinary tract symptoms 03/13/2020 Chronic mastoiditis 2004 Diabetes mellitus ([facility]) Dysfunction of eustachian tube 2004 Dyslipidemia [...] performed by Agustin Saravia MD at ENDOSCOPY [facility] FOOT/TOE SURGERY NEC 11/14 L foot deformity L-/S-SPINE PARAVERTEBRAL FACET INJ,1 LEVEL 05/03/2020 L-/S-SPINE PARAVERTEBRAL FACET INJ, 1 LEVEL performed by Avtar Merchant DO at OR [facility] MASTOID SURGERY REVISION/APICECTOMY age 18 [facility] [place] 01/07 spur removed Current Outpatient Medications Medication Sig Dispense Refill Insulin NPH (Human) (Isophane) 100 UNIT/ML Subcutaneous Suspension (NovoLIN N ReliOn) Inject 35Units under the skin at bedtime. 4 Each 1 Insulin Regular Human 100 UNIT/ML Injection Solution (NovoLIN R ReliOn) INJECT 5 UNITS SUBCUTANEOUSLY THREE TIMES DAILY BEFORE MEALS 10 mL 6 ReliOn Pen [place] 32G X 4 MM (Insulin Pen Needle) [...] 300 Strip 3 ONETOUCH DELICA LANCETS 33G [facility] [place] ONE TO CHECK GLUCOSE 4 TIMES [...] Reactions Lisinopril Edema face/lips/tongue James Maria DO [facility] [address] [facility] [place] [address] I spent 35-45 minutes reviewing this patients [...] Nursing Notes * Celina Lau LPN - 02/28/2021 2:03 PM EDT The patient has been properly identified by confirmation of name and date of . Chief Complaint Patient presents with Re-Check Pt here for recheck, no concers documented in this encounter Plan of Treatment Upcoming Encounters Date Type Specialty Care Team Description 04/17/2021 [facility] [address] [place] [address] [phone] Scheduled Orders Name Type Priority Associated Diagnoses [...] Documents on File Type Date Recorded Patient Gelatin Powder Mixer Expl 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 Advanced Directive
--- OUTSIDE RECORDS SUMMARY | 2023-07-31 20:31 | External Medical Summary | Summary of Care ---
Author Name Unknown Organization [facility] Address [place] [address] Care Team Providers Care Accounts Receivable Manager Name Role Phone James Maria DO Primary Care Provider Reason for Visit * Reason Onset Date Comments Health Maintenance 01/15/2021 Encounter Details Date Type Department Care Team Description 01/15/[address] [facility] [address] [place] [address] James Maria DO [address] [facility] [place] [address] [phone] Health Maintenance Allergies Active Allergy Reactions Severity Noted Date Comments Lisinopril Edema face/lips/tongue High 04/05/2018 documented as of this encounter (statuses as of 01/15/2021) Medications Medication Sig Dispensed Refills Start Date End Date Status ciprofloxacin-dexame thasone (CIPRODEX) 0.3-0.1 % otic suspensionIndication s:Mixed hearing loss, unilateral,Chronic mastoiditis,Otitis media 4 DROPS RIGHT EAR ASNEEDED IF WATER GETS IN EAR 7.5 mL 3 01/29/2016 Active Additional Information Patient not taking. Reported on 11/05/2020 Blood Glucose Monitoring Suppl (BridgeLuxTOUCH ULTRA SYSTEM) W/DEVICE KIT Use as directed [...] Erectile Dysfunction. 5 Tab 6 08/24/2017 Active Insulin Pen Needle (RELION PEN NEEDLES) 32G X 4 MM Use as directed with flexpen 100 Each 6 08/24/2017 Active Glucose Blood (BridgeLuxTOUCH VERIO) STRP Use up to 4 times a day E11.9 300 Strip 3 08/24/2017 Active aspirin enteric coated 81 MG TBECIndications:Type 2 diabetes mellitus with diabetic neuropathy, unspecified (HCC) Take 1 Tab by mouth daily. 100 Tab 3 02/10/2018 Active Blood Glucose Monitoring Suppl (InComm VERIO) w/Device KITIndications:Type 2 diabetes mellitus with [...] WITH MEALS 15 mL 3 01/26/2019 Active cyclobenzaprine (FLEXERIL) 5 MG TabletIndications:Ch ronic right-sided low back pain without sciatica Take 1 Tab by mouth 3 times a day as needed for Muscle spasms. 30 Tab 0 11/21/2019 Active Meloxicam (MOBIC) 7.5 MG TabletIndications:Sp ondylosis of thoracolumbar region without myelopathy or radiculopathy Take 1 Tab by mouth daily. for pain. 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 90 Tab 1 01/18/2020 Active amLODIPine (NORVASC) 5 MG Tablet Take 1 Tab by mouth daily. 90 Tab 3 06/19/2020 Active atorvaSTATin (LIPITOR) 40 MG Tablet Take 1 Tab by mouth daily. 90 Tab 3 06/19/2020 Active insulin isophane human (NOVOLIN N RELION) 100 UNIT/ML injectionIndications :Type 2 diabetes mellitus with polyneuropathy (HCC) Inject 35 Units under the skin at bedtime. 4 Each 5 06/19/2020 Active insulin REGULAR human (NOVOLIN R RELION) 100 UNIT/ML injectionIndications :Type 2 diabetes mellitus with polyneuropathy (HCC) Inject 5 Units under the skin three times a day before meals. 4 Each 5 06/19/2020 Active MetFORMIN (GLUCOPHAGE) 1000 MG TabletIndications:Ty pe 2 diabetes mellitus with hemoglobin A1c goal of less than 7.0% (HCC) Take 1 Tab by mouth 2 times a day with morning and evening meals. 180 Tab 3 06/19/2020 Active tamsulosin (FLOMAX) 0.4 MG Capsule Take 1 Cap by mouth daily. 90 Cap 3 06/19/2020 Active Insulin Syringe-Needle U-100 (RELION INSULIN SYRINGE) 30G X 5/16" 0.3 ML MISCIndications:Type 2 diabetes mellitus with polyneuropathy (HCC),Type 2 diabetes mellitus with hemoglobin A1c goal of less than 8.0% (HCC) Use up to 4 x a day for insulin dosing E11.9 3 Each 3 06/19/2020 Active documented as of this encounter (statuses as of 01/15/2021) Active Problems Problem Noted Date BPH with [...] as of this encounter (statuses as of 01/15/2021) Resolved Problems Problem Noted Date Resolved Date [...] as of this encounter (statuses as of 01/15/2021) Immunizations Name Administration Dates Next Due Pneumococcal [...] Telephone Encounter - Jeannie Abreu LPN - 01/15/2021 8:24 AM EDT Care Gaps Comprehensive Care Outreach Last Office/Telemedicine Visit: Last Office/Telemedicine Visit: 06/19/2020 Next Office Visit: Next Office Visit: 02/28/2021 Scheduled Provider(s): James Maria DO Reviewed Health Maintenance below Health Maintenance Topic Date Due DIABETES-HGBA1C EVERY 6 MONTHS 09/13/2020 DIABETES-FOOT EXAM 10/13/2020 Yearly B-12 11/16/2020 DIABETES-EYE EXAM 12/15/2020 DIABETES-URINE MICROALBUMIN EVERY 12 MONTHS 03/13/2021 Care Gap Outreach Action Taken: Unable to reach: Left message. documented in this encounter Plan of Treatment Upcoming Encounters Date Type Specialty Care Team Description 02/28/2021 Office Visit Family Medicine James Maria DO [address] [facility] [place] [address] [phone] 04/17/2021 Office Visit Podiatry Region, [facility] [address] [place] [address] [phone] Health Maintenance Due Date Last Done Comments [...] Documents on File Type Date Recorded Patient Dental Associate Expl 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
--- OUTSIDE RECORDS SUMMARY | 2023-07-31 20:31 | External Medical Summary | Summary of Care ---
Author Name Unknown Organization [facility] Address [place] [address] Care Team Providers Care Hydrogeology Professor Name Role Phone James Maria DO Primary Care Provider Reason for Visit * Reason Onset Date Comments Advice 12/18/2020 Encounter Details Date Type Department Care Team Description 12/18/[address] [facility] [address] [place] [address] James Maria DO [address] [place] [address] [phone] Advice Allergies Active Allergy Reactions Severity Noted Date Comments Lisinopril Edema face/lips/tongue High 04/05/2018 documented as of this encounter (statuses as of 12/18/2020) Medications Medication Sig Dispensed Refills Start Date End Date Status ciprofloxacin-dexame thasone (CIPRODEX) 0.3-0.1 % otic suspensionIndication s:Mixed hearing loss, unilateral,Chronic mastoiditis,Otitis media 4 DROPS RIGHT EAR ASNEEDED IF WATER GETS IN EAR 7.5 mL 3 01/29/2016 Active Additional Information Patient not taking. Reported on 11/05/2020 Blood Glucose Monitoring Suppl (DataSiftTOUCH ULTRA SYSTEM) W/DEVICE KIT Use as directed [...] 100 Each 6 08/24/2017 Active Glucose Blood (DataSiftTOUCH VERIO) STRP Use up to 4 times a day E11.9 300 Strip 3 08/24/2017 Active aspirin enteric coated 81 MG TBECIndications:Type 2 diabetes mellitus with diabetic neuropathy, unspecified (HCC) Take 1 Tab by mouth daily. 100 Tab 3 02/10/2018 Active Blood Glucose Monitoring Suppl (Platfora VERIO) w/Device KITIndications:Type 2 diabetes mellitus with [...] as of this encounter (statuses as of 12/18/2020) Active Problems Problem Noted Date BPH with [...] as of this encounter (statuses as of 12/18/2020) Resolved Problems Problem Noted Date Resolved Date [...] as of this encounter (statuses as of 12/18/2020) Immunizations Name Administration Dates Next Due Pneumococcal [...] encounter Miscellaneous Notes * Telephone Encounter - Zaira Guillory RN - 12/18/2020 5:06 PM EST Order, demo sheet, notes faxed to [employer]. Called pt's , Farhana. She would like to have order sent to [facility]. Faxed to [facility]. * Telephone Encounter - Vania Cabrera DO - 12/18/2020 4:18 PM EST Order signed Please fax * Telephone Encounter - Ellen Boyd OSA - 12/18/2020 2:23 PM EST Patient's , Farhana, would like to speak with a nurse. She would like a referral to a DME for her to get diabetic shoes. Please call her back at [phone]. documented in this encounter Plan of Treatment Upcoming Encounters Date Type Specialty Care Team Description 12/25/2020 Office Visit Family Medicine James Maria, DO [address] [place] [address] [phone] 01/10/2021 Office Visit Podiatry [facility] [address] [place] [address] [phone] Health Maintenance Due Date Last Done Comments [...] Documents on File Type Date Recorded Patient Funnel Setter Expl 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 Advanced Directive Advanced Directive Advanced Directive Advanced Directive Advanced Directive Advanced Directive Advanced Directive Advanced Directive Advanced Directive Advanced Directive Advanced Directive Advanced Directive
--- OUTSIDE RECORDS SUMMARY | 2023-07-31 20:31 | External Medical Summary | Summary of Care ---
Author Name Unknown Organization [facility] Address [place] [address] Care Team Providers Care Foundry Worker General Name Role Phone James Maria DO Primary Care Provider Encounter Details Date Type Department Care Team Description 12/24/2020 Telephone Family Practice [facility] [address] [place] [address] James Maria DO [address] [facility] [place] [address] [phone] Allergies Active Allergy Reactions Severity Noted Date Comments Lisinopril Edema face/lips/tongue High 04/05/2018 documented as of this encounter (statuses as of 12/24/2020) Medications Medication Sig Dispensed Refills Start Date End Date Status ciprofloxacin-dexame thasone (CIPRODEX) 0.3-0.1 % otic suspensionIndication s:Mixed hearing loss, unilateral,Chronic mastoiditis,Otitis media 4 DROPS RIGHT EAR ASNEEDED IF WATER GETS IN EAR 7.5 mL 3 01/29/2016 Active Additional Information Patient not taking. Reported on 11/05/2020 Blood Glucose Monitoring Suppl (EurotriTOUCH ULTRA SYSTEM) W/DEVICE KIT Use as directed 4 times a day as needed for Hyperglycemia (high sugar) or Hypoglycemia (low sugar). Use up to four times a day as directed 1 Kit 0 01/29/2016 Active Février 46UCH ULTRA BLUE STRP USE TO CHECK GLUCOSE [...] 100 Each 6 08/24/2017 Active Glucose Blood (Perfect Pizza VERIO) STRP Use up to 4 times a day E11.9 300 Strip 3 08/24/2017 Active aspirin enteric coated 81 MG TBECIndications:Type 2 diabetes mellitus with diabetic neuropathy, unspecified (HCC) Take 1 Tab by mouth daily. 100 Tab 3 02/10/2018 Active Blood Glucose Monitoring Suppl (Frogdice) w/Device KITIndications:Type 2 diabetes mellitus with hemoglobin [...] as of this encounter (statuses as of 12/24/2020) Active Problems Problem Noted Date BPH with [...] as of this encounter (statuses as of 12/24/2020) Resolved Problems Problem Noted Date Resolved Date [...] as of this encounter (statuses as of 12/24/2020) Immunizations Name Administration Dates Next Due Pneumococcal [...] encounter Miscellaneous Notes * Telephone Encounter - Rita Grossman LPN - 12/24/2020 2:54 PM EST Requested information faxed. * Telephone Encounter - Autumn Vogel OSA - 12/24/2020 10:52 AM EST Caller requesting the following information to be faxed: Name/Company of caller: [employer] Health Information requested to be faxed: Face to face evaluation notes, foot exam, most recent A1C lab result Fax number: [phone] Attention to Name/Company: [employer] Any additional information?: Please fax documented in this encounter Plan of Treatment Upcoming Encounters Date Type Specialty Care Team Description 01/10/2021 Office Visit Podiatry [facility] [address] [place] [address] [phone] 02/28/2021 Office Visit Family Medicine James Maria DO [address] [place] [address] [phone] Health Maintenance Due Date Last Done Comments [...] Documents on File Type Date Recorded Patient Cia Agent Expl 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 Advanced Directive Advanced Directive Advanced Directive Advanced Directive Advanced Directive Advanced Directive Advanced Directive Advanced Directive Advanced Directive Advanced Directive Advanced Directive Advanced Directive Advanced Directive
--- OUTSIDE RECORDS SUMMARY | 2023-07-31 20:31 | External Medical Summary | Summary of Care ---
Author Name Unknown Organization [place] [address] Care Team Providers Care Pen Ruler Operator Name Role Phone James Maria Primary Care Provider Reason for Visit * Reason Comments Follow Up Right tympanic membr ane perforation Encounter Details Date Type Department Care Team Description 11/05/2020 Office Visit Otolaryngology [facility] [address] [place] [address] Del Multani II, MD 132 [facility] [place] [address] Tympanic membrane perforation, right* Allergies Active Allergy Reactions Severity Noted Date Comments Lisinopril Edema face/lips/tongue High 04/05/2018 documented as of this encounter (statuses as of 11/05/2020) Medications Medication Sig Dispensed Refills Start Date End Date Status ciprofloxacin-dexame thasone (CIPRODEX) 0.3-0.1 % otic suspensionIndication s:Mixed hearing loss, unilateral,Chronic mastoiditis,Otitis media 4 DROPS RIGHT EAR ASNEEDED IF WATER GETS IN EAR 7.5 mL 3 01/29/2016 Active Additional Information Patient not taking. Reported on 11/05/2020 Blood Glucose Monitoring Suppl (American Restaurant ConceptsTOUCH ULTRA SYSTEM) W/DEVICE KIT Use as directed 4 times a day as needed for Hyperglycemia (high sugar) or Hypoglycemia (low sugar). Use up to four times a day as directed 1 Kit 0 01/29/2016 Active American Restaurant ConceptsTOUCH ULTRA BLUE STRP USE TO CHECK GLUCOSE [...] 100 Each 6 08/24/2017 Active Glucose Blood ([employer] Restaurant ConceptsTOUCH VERIO) STRP Use up to 4 times a day E11.9 300 Strip 3 08/24/2017 Active aspirin enteric coated 81 MG TBECIndications:Type 2 diabetes mellitus with diabetic neuropathy, unspecified (HCC) Take 1 Tab by mouth daily. 100 Tab 3 02/10/2018 Active Blood Glucose Monitoring Suppl (TeamStreamzUCH VERIO) w/Device KITIndications:Type 2 diabetes mellitus with [...] hemoglobin A1c goal of less than 7.0% ([facility]) Take 1 Tab by mouth 2 times [...] as of this encounter (statuses as of 11/05/2020) Active Problems Problem Noted Date BPH with [...] as of this encounter (statuses as of 11/05/2020) Resolved Problems Problem Noted Date Resolved Date [...] as of this encounter (statuses as of 11/05/2020) Immunizations Name Administration Dates Next Due Pneumococcal [...] Pressure - - Pulse - - Temperature 36.7 C (98.1 F) 11/05/2020 1:15 PM ES T Respiratory Rate - - Oxygen Saturation - - Inhaled Oxygen Concentration - - Weight 80.4 kg (177 lb 4.8 oz) 11/05/2020 1:15 P M EST Height 167.6 cm (5' 6") 11/05/2020 1:15 PM EST Body Mass Index 28.62 11/05/2020 1:15 PM EST documented in this encounter Progress Notes * Del Multani II, MD - 11/05/2020 1:26 PM EST Nursing Notes: Brianna Amaro, MED ASSIST 11/05/20 1317 Signed Chief Complaint Patient presents with Follow Up Right tympanic membrane perforation Patient identifed by name and birthdate Do you have any concerns about pain management for today's visit? No Living Will or Advance Directive for Health Care as noted on the problem list. [facility] is a way you can talk to your provider on line through e-mail. Would you like to sign up? I can activate it for you? ALREADY ACTIVE Selvin Sebastian is a 75 year old male seen for a recheck of his right ear. He has not had any ear pain or drainage. He has some "crackling" and "popping" in his right ear. He is no longer using any eardrops. Last Office/Telemedicine Visit: 08/03/2020 (H72.91) Tympanic membrane perforation, right (primary encounter diagnosis) Plan: HE WAS PROVIDED WITH A RX FOR CIPRODEX, AND ENCOURAGED TO PRACTICE STRICT WATER PRECAUTIONS FOR THERIGHT EAR. ARRANGEMENTS WERE MADE TO SEE HIM BACK ON 11/05/2020. (H61.21) Impacted cerumen of right ear Plan: REMOVE IMPACTED EAR WAX W/ INSTRUMENT, ONE EAR RESOLVED. 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, 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 Past Medical History: Diagnosis Date Allergic rhinitis 2004 BPH with obstruction/lower urinary tract symptoms 03/13/2020 Chronic mastoiditis 2004 Diabetes mellitus ([facility]) Dysfunction of eustachian tube 2004 Dyslipidemia [...] performed by Agustin Saravia MD at ENDOSCOPY [facility] FOOT/TOE SURGERY NEC 11/14 L foot deformity L-/S-SPINE PARAVERTEBRAL FACET INJ,1 LEVEL 05/03/2020 L-/S-SPINE PARAVERTEBRAL FACET INJ, 1 LEVEL performed by Avtar Merchant DO at OR [facility] MASTOID SURGERY REVISION/APICECTOMY age 18 [facility]ROS[facility] SURGERY 01/07 spur removed Medications Current Outpatient Medications Medication Sig Dispense Refill amLODIPine (NORVASC) 5 MG Tablet Take 1 Tab by mouth daily. 90 Tab 3 atorvaSTATin (LIPITOR) 40 MG Tablet Take 1 Tab by mouth daily. 90 Tab 3 insulin isophane human (NOVOLIN N RELION) 100 UNIT/ML injection Inject 35 Units under the skin at bedtime. 4 Each 5 insulin REGULAR human (NOVOLIN R RELION) 100 UNIT/ML injection Inject 5 Units under the skin three times a day before meals. 4 Each 5 Insulin Syringe-Needle U-100 (RELION INSULIN SYRINGE) 30G X 5/16" 0.3 ML MISC Use up to 4 x a day for insulin dosing E11.9 3 Each 3 MetFORMIN (GLUCOPHAGE) 1000 MG Tablet Take 1 Tab by mouth 2 times a day with morning and evening meals. 180 Tab 3 tamsulosin (FLOMAX) 0.4 MG Capsule Take 1 Cap by mouth daily. 90 Cap 3 Meloxicam 15 MG Tablet Take 1 Tab by mouth daily. 90 Tab 1 Meloxicam (MOBIC) 7.5 MG Tablet Take 1 Tab by mouth daily. for pain. 30 Tab 11 cyclobenzaprine (FLEXERIL) 5 MG Tablet Take 1 Tab by mouth 3 times a day as needed for Muscle spasms. 30 Tab 0 NOVOLOG FLEXPEN 100 UNIT/ML SOPN INJECT 5 UNITS SUBCUTANEOUSLY THREE TIMES DAILY WITH MEALS 15 mL 3 Blood Glucose Monitoring Suppl (American Restaurant ConceptsTOUCH VERIO) w/Device KIT Use as directed. Recommend check glucose levels at least 2 times daily-once in AM before breakfast and once 2 hours after evening meal. 1 Kit 0 aspirin enteric coated 81 MG TBEC Take 1 Tab by mouth daily. 100 Tab 3 Glucose Blood (ONETOUCH VERIO) STRP Use up to 4 times a day E11.9 300 Strip 3 Insulin Pen Needle (RELION PEN NEEDLES) 32G X 4 MM Use as directed with flexpen 100 Each 6 Sildenafil Citrate (VIAGRA) 50 MG Tablet Take 1 Tab by mouth as needed for Erectile Dysfunction. 5 Tab 6 ONETOUCH DELICA LANCETS 33G MISC USE ONE TO CHECK GLUCOSE 4 TIMES DAILY 100 Each 0 ONETOUCH ULTRA BLUE STRP USE TO CHECK GLUCOSE 4 TIMES DAILY 100 Strip 0 Blood Glucose Monitoring Suppl (Rocketboom ULTRA SYSTEM) W/DEVICE KIT Use as directed 4 times a day as needed for Hyperglycemia (high sugar) or Hypoglycemia (low sugar). Use up to four times a day as directed 1 Kit 0 ciprofloxacin-dexamethasone (CIPRODEX) 0.3-0.1 % otic suspension 4 DROPS RIGHT EAR ASNEEDED IF WATER GETS IN EAR (Patient not taking: Reported on 11/05/2020) 7.5 mL 3 Allergies Review of patient's allergies indicates: Allergen Reactions Lisinopril Edema face/lips/tongue Family History Family History Problem Relation Age of Onset Diabetes Uncle (Unspecified) Diabetes Uncle (Unspecified) Diabetes Aunt (Unspecified) Diabetes Aunt (Unspecified) Hypertension Mother MVA age 69 Cancer Father lung - age 54 Diabetes Brother Social History Social History Tobacco Use Smoking status: Former Smoker Quit date: 11/02/1980 Years since quittin.0 Smokeless tobacco: Never Used Substance Use Topics Alcohol use: Yes Alcohol/week: 0.0 standard drinks Comment: As of 12.19.2006, the last noted alcohol intake was 1 ounces. Vaping/E-Cigarette Use Vaping/E-Cigarette Substances Vaping/E-Cigarette Devices Physical Examination: Temp 36.7 C (98.1 F) | Ht 1.676 m (5' 6") | Wt 80.4 kg (177 lb 4.8 oz) | BMI 28.62 kg/m | BSA 1.93 m EARS WERE EXAMINED USING THE OPERATING MICROSCOPE RIGHT EAR HAD A ISABEL TYMPANIC MEMBRANE PERFORATION WITH NORMAL MIDDLE EAR MUCOSA. LEFT EAR HAD AN INTACT AND COMPLETELY OPAQUE TM Given all of the above, the assessment and plan from today's visit is as follows. (H72.91) Tympanic membrane perforation, right (primary encounter diagnosis) Plan: EAR MICROSCOPY EXAM STABLE WITH NO INFECTION. HE WAS ADVISED TO F/U PRN WITH AGGIE IZQUIERDO PA-C. documented in this encounter Nursing Notes * Brianna Amaro, MED ASSIST - 11/05/2020 1:16 PM EST Chief Complaint Patient presents with Follow Up Right tympanic membrane perforation Patient identifed by name and birthdate Do you have any concerns about pain management for today's visit? No Living Will or Advance Directive for Health Care as noted on the problem list. [facility] is a way you can talk to your provider on line through e-mail. Would you like to sign up? I can activate it for you? ALREADY ACTIVE Selvin Sebastian is a 75 year old male seen for a recheck of his right ear. He has not had any ear pain or drainage. He has some "crackling" and "popping" in his right ear. He is no longer using any eardrops. Last Office/Telemedicine Visit: 08/03/2020 (H72.91) Tympanic membrane perforation, right (primary encounter diagnosis) Plan: HE WAS PROVIDED WITH A RX FOR CIPRODEX, AND ENCOURAGED TO PRACTICE STRICT WATER PRECAUTIONS FOR THERIGHT EAR. ARRANGEMENTS WERE MADE TO SEE HIM BACK ON 11/05/2020. (H61.21) Impacted cerumen of right ear Plan: REMOVE IMPACTED EAR WAX W/ INSTRUMENT, ONE EAR RESOLVED. documented in this encounter Plan of Treatment Upcoming Encounters Date Type Specialty Care Team Description 11/15/2020 Office Visit Podiatry [facility] [address] [address] [phone] 12/25/2020 Office Visit Family Medicine James Maria DO [address] [address] [phone] Scheduled Orders Name Type Priority Associated Diagnoses Orde r Schedule EAR MICROSCOPY EXAM Procedures Routine Tympanic membrane perforation, right Ordered: 11/05/2020 Health Maintenance Due Date Last Done Comments DIABETES-HGBA1C EVERY 6 MONTHS 09/13/2020 03/13/2020, 11/16/2019, 12/13/2018, Additional history exists DIABETES-FOOT EXAM 10/13/2020 10/13/2019, 0 06/07/2018, 05/13/2017, Additional history exists Yearly B-12 11/16/2020 11/16/2019, 01/11/2018 DIABETES-EYE EXAM 12/15/2020 12/15/2019, , 02/28/2013, Additional [...] as of this encounter Visit Diagnoses Diagnosis Tympanic membrane perforation, right- Primary documented in this encounter Advance Directives Documents on File Type Date Recorded Patient Bull Driver Expl 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 Advanced Directive Advanced Directive Advanced Directive Advanced Directive Advanced Directive Advanced Directive Advanced Directive Advanced Directive Advanced Directive Advanced Directive Advanced Directive
--- OUTSIDE RECORDS SUMMARY | 2023-07-31 20:31 | External Medical Summary | Summary of Care ---
Author Name Unknown Organization [place] [address] Care Team Providers Care Shell Trim Tool Setter Name Role Phone James Maria Primary Care Provider Reason for Visit * Reason Comments Follow Up Right tympanic membr ane perforation Encounter Details Date Type Department Care Team Description 11/05/2020 Office Visit Otolaryngology [facility] [address] [place] [address] Del Multani II, MD 132 [facility] [place] [address] Tympanic membrane perforation, right* [...] Reported on 11/05/2020 Blood Glucose Monitoring Suppl ([email or web address] ULTRA SYSTEM) W/DEVICE KIT Use as directed 4 times a day as needed for Hyperglycemia (high sugar) or Hypoglycemia (low sugar). Use up to four times a day as directed 1 Kit 0 01/29/2016 Active [email or web address] ULTRA BLUE STRP USE TO CHECK GLUCOSE [...] 100 Each 6 08/24/2017 Active Glucose Blood ([email or web address] VERIO) STRP Use up to 4 times a day E11.9 300 Strip 3 08/24/2017 Active aspirin enteric coated 81 MG TBECIndications:Type 2 diabetes mellitus with diabetic neuropathy, unspecified (HCC) Take 1 Tab by mouth daily. 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, 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, 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 Past Medical History: Diagnosis Date Allergic rhinitis 2004 BPH with obstruction/lower urinary tract symptoms 03/13/2020 Chronic mastoiditis 2004 Diabetes mellitus ([facility]) Dysfunction of eustachian tube 2004 [...] performed by Agustin Saravia MD at ENDOSCOPY [facility] FOOT/TOE SURGERY NEC 11/14 L foot deformity L-/S-SPINE PARAVERTEBRAL FACET INJ,1 LEVEL 05/03/2020 L-/S-SPINE PARAVERTEBRAL FACET INJ, 1 LEVEL performed by Avtar Merchant DO at OR [facility] MASTOID SURGERY REVISION/APICECTOMY age 18 [facility] SHOULDER ARTHROSCOPY SURGERY 01/07 spur removed Medications [...] 15 mL 3 Blood Glucose Monitoring Suppl ([email or web address] VERIO) w/Device KIT Use as directed. Recommend [...] 100 Strip 0 Blood Glucose Monitoring Suppl (Sw[employer] ULTRA SYSTEM) W/DEVICE KIT Use as directed [...] 4.8 oz) | BMI 28.62 kg/m | BSA1.93 m EARS WERE EXAMINED USING THE OPERATING [...] Team Description 11/15/2020 Office Visit Podiatry [facility] [address] [address] [phone] 12/25/2020 Office Visit Family Medicine James Maria DO [address] [address] [phone] Scheduled Orders Name Type Priority Associated Diagnoses [...] Documents on File Type Date Recorded Patient Small Engine Specialist Expl 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 Advanced Directive Advanced Directive Advanced Directive Advanced Directive Advanced Directive Advanced Directive Advanced Directive Advanced Directive Advanced Directive Advanced Directive Advanced Directive
--- OUTSIDE RECORDS SUMMARY | 2023-07-31 20:31 | External Medical Summary | Summary of Care ---
Author Name Unknown Organization [facility] [place] [address] Care Team Providers Care Seam Finisher Name Role Phone Mejia Maria DO Primary Care Provider Reason for Visit * Reason Comments eRx-Medication Refill Encounter Details Date Type Department Care Team Description 01/30/[address] 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 Reported on 11/05/2020 Blood Glucose Monitoring Suppl (InvoiceSharing ULTRA SYSTEM) W/DEVICE KIT Use as directed [...] Dysfunction. 5 Tab 6 08/24/20 17 Active Insulin Pen Needle (RELION PEN NEEDLES) 32G X 4 MM Use as directed with flexpen 100 Each 6 08/24/20 17 Active Glucose Blood (ONETOUCH VERIO) STRP Use up to 4 times a day E11.9 300 Strip 3 08/24/20 17 Active aspirin enteric coated 81 MG TBECIndications:Ty pe 2 diabetes mellitus with diabetic neuropathy, unspecified (HCC) Take 1 Tab by mouth daily. 100 Tab 3 02/11/20 18 Active Blood Glucose Monitoring Suppl (ONETOUCH VERIO) w/Device KITIndications:Typ e 2 diabetes mellitus with hemoglobin A1c goal of 7.0%-8.0% (HCC) Use as directed. Recommend check glucose levels at least 2 times daily-once in AM before breakfast and once 2 hours after evening meal. 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 30 Tab 0 11/21/19 20 Active amLODIPine (NORVASC) 5 MG Tablet Take 1 Tab by mouth daily. 90 Tab 3 06/19/20 20 Active atorvaSTATin (LIPITOR) 40 MG Tablet Take 1 Tab by mouth daily. 90 Tab 3 06/19/20 20 Active insulin isophane human (NOVOLIN N RELION) 100 UNIT/ML injectionIndicatio ns:Type 2 diabetes mellitus with polyneuropathy (HCC) Inject 35 Units under the skin at bedtime. 4 Each 5 06/19/20 20 Active insulin REGULAR human (NOVOLIN R RELION) 100 UNIT/ML injectionIndicatio ns:Type 2 diabetes mellitus with polyneuropathy (HCC) Inject 5 Units under the skin three times a day before meals. 4 Each 5 06/19/20 20 Active MetFORMIN (GLUCOPHAGE) 1000 MG TabletIndications: Type 2 diabetes mellitus with hemoglobin A1c goal of less than 7.0% (HCC) Take 1 Tab by mouth 2 times a day with morning and evening meals. 180 Tab 3 06/19/20 Active tamsulosin (FLOMAX) 0.4 MG Capsule Take 1 Cap by mouth daily. 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 for pain. 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 90 Tab 1 01/18/20 20 021 Discontinued documented as of this encounter (statuses as of 01/31/2021) Active Problems Problem Noted Date BPH with [...] as of this encounter (statuses as of 01/31/2021) Resolved Problems Problem Noted Date Resolved Date [...] as of this encounter (statuses as of 01/31/2021) Immunizations Name Administration Dates Next Due Pneumococcal [...] encounter Miscellaneous Notes * Telephone Encounter - Victoria Watson, [facility] - 01/31/2021 11:27 AM EDT Signed Prescriptions: Disp Refills Meloxicam 15 MG Oral Tablet 90 Tab 0 Sig: Take 1 tablet by mouthonce dailyAuthorizing Provider: MEJIA MARIA User: VICTORIA WATSON Prescriptions: Disp Refills NovoLIN N ReliOn 100 UNIT/ML Subcutaneous *30 mL 0 Sig: INJECT 35 UNITS SUB CUTANEOUSLY AT BEDTIMERefused By: VICTORIA WATSON for Refusal: Duplicate RequestReason for Refusal Comment: sent to [facility], refills available NovoLIN R ReliOn 100 UNIT/ML Injection Cathryn*20 mL 0 Sig: INJECT 5 UNITS SUBCUTANEOUSLY THREE TIMES DAILY BEFORE MEALSRefused By: VICTORIA WATSON for Refusal: Duplicate RequestReason for Refusal Comment: sent to [facility], refills available Atorvastatin Calcium 40 MG Oral Tablet (Li*90 Tab 0Sig: Take 1 tablet by mouth once dailyRefused By: VICTORIA WATSON for Refusal: DuplicateRequestReason for Refusal Comment: sent to [facility], refills available metFORMIN [id number] MG Oral Tablet (Glucoph*180 Tab0 Sig: TAKE 1 TABLET BY MOUTH TWICE DAILY WITH MORNING MEAL AND WITH EVENING MEALRefused By: VICTORIA WATSON for Refusal: Duplicate RequestReason for Refusal Comment: [facility] Tamsulosin HCl 0.4 MG Oral Capsule (Flomax)90 Cap 0 Sig:Take 1 capsule by mouth once dailyRefused By: VICTORIA WATSON for Refusal: Duplicate RequestReason for Refusal Comment: sent to [facility], refills available Meloxicam 7.5 MG Oral Tablet 90 Tab 0 Sig: TAKE 1 TABLET BY MOUTH ONCE DAILY FOR PAINRefused By: VICTORIA WATSON for Refusal: Course of treatment completeReason for Refusal Comment: increased to 15mg daily documented in this encounter Plan of Treatment Upcoming Encounters Date Type Specialty Care Team Description 02/28/2021 Office Visit Family Medicine Mejia Maria DO [address] [address] [phone] 04/17/2021 Office Visit Podiatry [facility] [address] [address] [address] [phone] Health Maintenance Due Date Last Done Comments [...] A1c goal of less than 7.0% (HCC) 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 Thoracic spondylosis without myelopathy documented in this encounter Advance Directives Documents on File Type Date Recorded Patient Logistics Engineer Expl 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
--- OUTSIDE RECORDS SUMMARY | 2023-07-31 20:31 | External Medical Summary | Summary of Care ---
Author Name Unknown Organization [facility] Address [facility] [place] [address] Care Team Providers Care Hair Spring Cutter Name Role Phone Crow James Dyefiliberto Primary Care Provider Reason for Visit * Reason Comments Follow Up nail care Encounter Details Date Type Department Care Team Description 01/10/2021 Office Visit Podiatry [facility] 132 [facility] [place] [address] Region, [facility] 132 [facility] [place] [address] [phone] Onychomycosis*; DM type 2 with diabetic peripheral neuropathy (HCC); History of foot surgery Allergies Active Allergy Reactions Severity Noted Date Comments Lisinopril Edema face/lips/tongue High 04/05/2018 documented as of this encounter (statuses as of 01/11/2021) Medications Medication Sig Dispensed Refills Start Date End Date Status ciprofloxacin-dexame thasone (CIPRODEX) 0.3-0.1 % otic suspensionIndication s:Mixed hearing loss, unilateral,Chronic mastoiditis,Otitis media 4 DROPS RIGHT EAR ASNEEDED IF WATER GETS IN EAR 7.5 mL 3 01/29/2016 Active Additional Information Patient not taking. Reported on 11/05/2020 Blood Glucose Monitoring Suppl (Trendyta ULTRA SYSTEM) W/DEVICE KIT Use as directed [...] 100 Each 6 08/24/2017 Active Glucose Blood (ONETOUCH VERIO) STRP Use up to 4 times a day E11.9 300 Strip 3 08/24/2017 Active aspirin enteric coated 81 MG TBECIndications:Type 2 diabetes mellitus with diabetic neuropathy, unspecified (HCC) Take 1 Tab by mouth daily. 100 Tab 3 02/10/2018 Active Blood Glucose Monitoring Suppl (ONETOUCH VERIO) [...] as of this encounter (statuses as of 01/11/2021) Active Problems Problem Noted Date BPH with [...] as of this encounter (statuses as of 01/11/2021) Resolved Problems Problem Noted Date Resolved Date [...] as of this encounter (statuses as of 01/11/2021) Immunizations Name Administration Dates Next Due Pneumococcal [...] Progress Notes * Kylie Burroughs DPM - 01/10/2021 1:24 PM EST Podiatry Established Note [facility] Name: Selvin Sebastian : 1945 Date: 01/10/21 1. Onychomycosis 2. DM type 2 with diabetic peripheral neuropathy (HCC) 3. History of foot surgery Patient was seen and toenails were addressed by certified civil drafting technician Michael Méndez under my supervision. She performed procedure without issue and patient was amendable to this today. Follow up: 3 months, they were instructed to call sooner with any concerns or new issues * Aida Méndez TECH - 01/10/2021 1:01 PM EST The patient presents today for foot care. [...] Description 02/28/2021 Office Visit Family Medicine James Maria, [address] [place] [address] [phone] 04/17/2021 Office Visit Podiatry Region, Assistant [facility] [address] [place] [address] [phone] Health Maintenance Due Date Last Done Comments [...] with neurological manifestations, not stated as uncontrolled History of foot surgery Personal history of surgery to other organs documented in this encounter Advance Directives Documents on File Type Date Recorded Patient Product Marketing Consultant Expl 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
--- OUTSIDE RECORDS SUMMARY | 2023-07-31 20:31 | External Medical Summary | Summary of Care ---
Author Name Unknown Organization [place] [address] Care Team Providers Care State Manager Name Role Phone Crow James Dyefiliberto Primary Care Provider Reason for Visit * Reason Comments Follow Up nail care Encounter Details Date Type Department Care Team Description 08/08/2020 Office [facility] [place] [address] [facility] [address] [facility] [place] [address] [phone] Onychomycosis*; DM type 2 with diabetic peripheral neuropathy (HCC); History of foot surgery Allergies Active Allergy Reactions Severity Noted Date Comments Lisinopril Edema face/lips/tongue High 04/05/2018 documented as of this encounter (statuses as of 08/08/2020) Medications Medication Sig Dispensed Refills Start Date End Date Status ciprofloxacin-dexame thasone (CIPRODEX) 0.3-0.1 % otic suspensionIndication s:Mixed hearing loss, unilateral,Chronic mastoiditis,Otitis media 4 DROPS RIGHT EAR ASNEEDED IF WATER GETS IN EAR 7.5 mL 3 01/29/2016 Active Additional Information Patient not taking. Reported on 05/03/2020 Blood Glucose Monitoring Suppl (Balance FinancialTOUCH ULTRA SYSTEM) W/DEVICE KIT Use as directed [...] 6 08/24/2017 Active Additional Information Patient not taking. Reported on 10/13/2019 Insulin Pen Needle (RELION PEN NEEDLES) 32G X 4 MM Use as directed with flexpen 100 Each 6 08/24/2017 Active Glucose Blood (Balance FinancialTOUCH VERIO) STRP Use up to 4 times a day E11.9 300 Strip 3 08/24/2017 Active aspirin enteric coated 81 MG TBECIndications:Type 2 diabetes mellitus with diabetic neuropathy, unspecified (HCC) Take 1 Tab by mouth daily. 100 Tab 3 02/10/2018 Active Blood Glucose Monitoring Suppl (Balance FinancialTOUCH VERIO) w/Device KITIndications:Type 2 diabetes mellitus with [...] Muscle spasms. 30 Tab 0 11/21/2019 Active Additional Information Patient not taking. Reported on 05/03/2020 Meloxicam (MOBIC) 7.5 MG TabletIndications:Sp ondylosis of thoracolumbar region without myelopathy or radiculopathy Take 1 Tab by mouth daily. for pain. 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 90 Tab 1 01/18/2020 Active Additional Information Patient not taking. Reported on 06/19/2020 amLODIPine (NORVASC) 5 MG Tablet Take 1 [...] dosing E11.9 3 Each 3 06/19/2020 Active Ciprofloxacin-Dexame thasone 0.3-0.1 % Otic Suspension (Ciprodex) Administer 4 Drops to the right ear 2 times a day for 7 days. For 7 days. 7.5 mL 1 08/03/2020 0 Active documented as of this encounter (statuses as of 08/08/2020) Active Problems Problem Noted Date BPH with [...] as of this encounter (statuses as of 08/08/2020) Resolved Problems Problem Noted Date Resolved Date [...] as of this encounter (statuses as of 08/08/2020) Immunizations Name Administration Dates Next Due Pneumococcal [...] Progress Notes * Kylie Burroughs DPM - 08/08/2020 9:08 AM EDT Podiatry Established Note [facility] Name: Selvin Sebastian : 1945 Date: 08/08/20 1. Onychomycosis 2. DM type 2 with diabetic peripheral neuropathy (HCC) 3. History of foot surgery Patient was seen and toenails were addressed by certified er medical technician Michael Méndez under my supervision. She performed procedure without issue and patient was amendable to this today. Follow up: 3 months, they were instructed to call sooner with any concerns or new issues * Aida Méndez TECH - 08/08/2020 8:16 AM EDT The patient presents today for [...] Encounters Date Type Specialty Care Team Description 11/05/2020 Office Visit Otolaryngology Del Multani II, MD [address] [address] [phone] 11/15/2020 Office Visit Podiatry [facility] [address] [address] [phone] 12/25/2020 Office Visit Family Medicine James Maria DO [address] [address] [phone] Scheduled Orders Name Type Priority Associated Diagnoses Orde r Schedule DEBRIDEMENT OF NAILS 6 OR MORE Procedures Routine Onychomycosis DM type 2 with diabetic peripheral neuropathy (HCC) History of foot surgery Ordered: 08/08/2020 Health Maintenance Due Date Last Done Comments [...] Documents on File Type Date Recorded Patient Hostess Expl 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 Advanced Directive Advanced Directive Advanced Directive Advanced Directive Advanced Directive Advanced Directive Advanced Directive Advanced Directive Advanced Directive Advanced Directive Advanced Directive
--- OUTSIDE RECORDS SUMMARY | 2023-07-31 20:32 | External Medical Summary | Summary of Care ---
Author Name Unknown Organization [facility] [place] [address] Care Team Providers Care Acting Section Chief Name Role Phone Yariel Mariavor Sophy Primary Care Provider Reason for Visit * Reason Onset Date Comments Medication Administration 08/03/2020 Flu an d/or Pneumo Inj Encounter Details Date Type Department Care Team Description 08/03/2020 Immunization/In jection [facility] [address] [facility] 132 [facility] [place] [address] Need for prophylactic vaccination and inoculation against influenza* Allergies Active Allergy Reactions Severity Noted Date Comments Lisinopril Edema face/lips/tongue High 04/05/2018 documented as of this encounter (statuses as of 08/03/2020) Medications Medication Sig Dispensed Refills Start Date End Date Status ciprofloxacin-dexame thasone (CIPRODEX) 0.3-0.1 % otic suspensionIndication s:Mixed hearing loss, unilateral,Chronic mastoiditis,Otitis media 4 DROPS RIGHT EAR ASNEEDED IF WATER GETS IN EAR 7.5 mL 3 01/29/2016 Active Additional Information Patient not taking. Reported on 05/03/2020 Blood Glucose Monitoring Suppl (Blueprint GeneticsTOUCH ULTRA SYSTEM) W/DEVICE KIT Use as directed [...] 100 Each 6 08/24/2017 Active Glucose Blood (Blueprint GeneticsTOUCH VERIO) STRP Use up to 4 times a day E11.9 300 Strip 3 08/24/2017 Active aspirin enteric coated 81 MG TBECIndications:Type 2 diabetes mellitus with diabetic neuropathy, unspecified (HCC) Take 1 Tab by mouth daily. 100 Tab 3 02/10/2018 Active Blood Glucose Monitoring Suppl (Blueprint GeneticsTOUCH VERIO) w/Device KITIndications:Type 2 diabetes mellitus with [...] as of this encounter (statuses as of 08/03/2020) Active Problems Problem Noted Date BPH with [...] as of this encounter (statuses as of 08/03/2020) Resolved Problems Problem Noted Date Resolved Date [...] as of this encounter (statuses as of 08/03/2020) Immunizations Name Administration Dates Next Due Pneumococcal [...] this encounter Patient Instructions * Patient Instructions* Brenda Santiago LPN - 08/03/2020 11:20 AM EDT ~~PATIENT INSTRUCTIONS FOR FLU SHOT~~ Possible side effects of influenza vaccine, (flu shot), are usually mild and include: 1. Soreness or redness at injection site 2. Low grade fever 3. Body aches You may use Tylenol/Acetaminophen as needed for these symptoms. LET YOUR DOCTOR KNOW IMMEDIATELY IF YOU HAVE DIFFICULTY BREATHING OR SWALLOWING, EXPERIENCE ITCHINGOF FEET OR HANDS, HAVE SWELLING OF EYES, FACE OR INSIDE OF NOSE. documented in this encounter Progress Notes * Brenda Santiago LPN - 08/03/2020 11:19 AM EDT PRE - ADMINISTRATION DOCUMENTATION Are you allergic to latex? No Are you experiencing any cold symptoms or fever? No Have you had Guillain-[place]le[place] Syndrome (an illness that causes paralysis) within the last 6 weeks? No Have you had the flu shot in the past? YES Have you ever had a reaction to the flu shot? No Brenda Santiago LPN, 08/03/2020 11:19 AM Immunization Administration Documentation Time Out Procedure Performed: Yes Patient Identified (Ask Name/Date of ): Yes Does the patient have a fever greater than 101 degrees today? No Patient allergic to latex? No VFC Stock: No Immunization(s) verified: Yes, Immunization Name: Flu, VIS Sheet(s) given: Yes Injection(s) verified: Yes, Injection Name: flulaval Verified Side and Site: Yes Verified Shot(s) with Parent(s)/Patient: Yes documented in this encounter Plan of Treatment Upcoming Encounters Date Type Specialty Care Team Description 08/23/2020 Office Visit Podiatry [facility] [address] [place] [address] 11/05/2020 Office Visit Otolaryngology Del Multani II, MD [address] [place] [address] 12/25/2020 Office Visit Family Medicine James Maria DO [address] [place] [address] Health Maintenance Due Date Last Done Comments Influenza Vaccine (FLU shot) (#1) 2020 08/03/2020, 08/22/2019, 10/21/2018, Additional history exists DIABETES-HGBA1C EVERY 6 MONTHS 09/13/2020 03/13/2020, 11/16/2019, [...] prophylactic vaccination and inoculation against influenza- Primary documented in this encounter Advance Directives Documents on File Type Date Recorded Patient Prototype Engineer Expl 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 Advanced Directive Advanced Directive Advanced Directive Advanced Directive Advanced Directive Advanced Directive Advanced Directive Advanced Directive Advanced Directive
--- OUTSIDE RECORDS SUMMARY | 2023-07-31 20:32 | External Medical Summary | Summary of Care ---
Author Name Unknown Organization [place] [address] Care Team Providers Care Policy Service Coordinator Name Role Phone James Maria Primary Care Provider Reason for Visit * Reason Comments Left Message UTC #2/3 -- due for 3 mo case mgmt assessment case management Encounter Details Date Type Department Care Team Description 06/20/2020 Arc Trimmer Telephone Care Coordination [address] [place], [place] [id number] Jane Arthur RN [address] [place] [address] [phone] Left Message (UTC #2/3 -- due for 3 mo gabriel... Allergies Active Allergy Reactions Severity Noted Date Comments Lisinopril Edema face/lips/tongue High 04/05/2018 documented as of this encounter (statuses as of 06/20/2020) Medications Medication Sig Dispensed Refills Start Date End Date Status ciprofloxacin-dexame thasone (CIPRODEX) 0.3-0.1 % otic suspensionIndication s:Mixed hearing loss, unilateral,Chronic mastoiditis,Otitis media 4 DROPS RIGHT EAR ASNEEDED IF WATER GETS IN EAR 7.5 mL 3 01/29/2016 Active Additional Information Patient not taking. Reported on 05/03/2020 11:17 AM Blood Glucose Monitoring Suppl (NauboUCH ULTRA SYSTEM) W/DEVICE KIT Use as directed [...] Information Patient not taking. Reported on 10/13/2019 8:44 AM Insulin Pen Needle (RELION PEN NEEDLES) 32G X 4 MM Use as directed with flexpen 100 Each 6 08/24/2017 Active Glucose Blood (MozaicoTOUCH VERIO) STRP Use up to 4 times a day E11.9 300 Strip 3 08/24/2017 Active aspirin enteric coated 81 MG TBECIndications:Type 2 diabetes mellitus with diabetic neuropathy, unspecified (HCC) Take 1 Tab by mouth daily. 100 Tab 3 02/10/2018 Active Blood Glucose Monitoring Suppl (MozaicoTOUCH VERIO) w/Device KITIndications:Type 2 diabetes mellitus with [...] Information Patient not taking. 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 for pain. 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 90 Tab 1 01/18/2020 Active Additional Information Patient not taking. Reported on 06/19/2020 9:07 AM amLODIPine (NORVASC) 5 MG Tablet Take 1 [...] as of this encounter (statuses as of 06/20/2020) Active Problems Problem Noted Date BPH with [...] as of this encounter (statuses as of 06/20/2020) Resolved Problems Problem Noted Date Resolved Date [...] as of this encounter (statuses as of 06/20/2020) Immunizations Name Administration Dates Next Due Pneumococcal Conjugate Vacc, 13 Valent (Prevnar) 12/24/2015 Pneumococcal Polysaccharide PPV23 (Pneumovax) 07/23/2011 Seasonal Influenza, Quadriva lent, No Preserve, 6 Mons & Above, IM 10/21/2018,09/10/2017 Seasonal Influenza, Quadriva lent, No Preserve, IM [...] file Not on file Not on file Travel History Travel Start Travel End COVID-19 Exposure Response Date Recorded In the last month, have you been in contact with someone who was confirmed or suspected to have Coronavirus / COVID-19? No / Unsure 06/19/2020 8:54 AM EDT documented as of this encounter Miscellaneous Notes * Telephone Encounter - Jerson, Jane Lau RN - 06/20/2020 9:31 AM EDT CHART REVIEW No recent ER or adm noted Hemoglobin AIC Results: HEMOGLOBIN, A1C(%) Stephie Dt/Tm Resulted Value Status 03/13/20 9:26A 03/13/20 7.4* FINAL 11/16/19 8:37A 11/16/19 11.5* FINAL 12/13/18 3:03P 12/14/18 14.3* FINAL 06/19 pcp-- overall okay Overall doing okay, but got mad at his pharmacist at [facility] and stop taking his diabetic medications for a while and lost a fair amount of weight while he was not taking his insulin. Is willing to be back on his medications but wants to get them through the mail order pharmacy now instead.\\ routine labs ordered 06/01/2020 -- epic release auth signed to talk to Farhana 05/09 urology -- voiding problems multifactorial (back problems, poorly controlled blood sugars, unrecognized urinary tract problems). PSA normal US r/o blockage but PVR common in DM 05/03 Interventional Pain mgmt. 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 assessment phone call to as patient is noted in chart to be VENETIE no answer, LMTRC to my direct # or 800# UTC #2/3 Jane Arthur RN MSN [facility] Medical [place] Float Arc Trimmer documented in this encounter Plan of Treatment Upcoming Encounters Date Type Specialty Care Team Description 07/11/2020 Office Visit Urology Fabby Nielsen, Chema Seay MD [address] [address] [place] [id number] 08/23/2020 Office Visit Podiatry [facility] [address] [place] [address] [phone] 12/25/2020 Office Visit Family Medicine James Maria DO [address] [place] [address] [phone] Health Maintenance Due Date Last Done Comments Influenza Vaccine (FLU shot) (#1) 2020 08/22/2019, 10/21/2018, 09/10/2017, Additional history exists DIABETES-HGBA1C EVERY 6 MONTHS [...] on File Type Date Recorded Patient Hospital Account Liaison Expl 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 Advanced Directive Advanced Directive Advanced Directive Advanced Directive Advanced Directive Advanced Directive
--- OUTSIDE RECORDS SUMMARY | 2023-07-31 20:32 | External Medical Summary | Summary of Care ---
Author Name Unknown Organization [place] [address] Care Team Providers Care Psychology Lecturer Name Role Phone James Maria Primary Care Provider Reason for Visit * Reason Onset Date Comments Advice 07/31/2020 Encounter Details Date Type Department Care Team Description 07/31/2020 Telephone Otolaryngology [facility] 132 [facility] [place] [address] Del Multani II, MD 132 [facility] [place] [address] Advice Allergies Active Allergy Reactions Severity Noted Date Comments Lisinopril Edema face/lips/tongue High 04/05/2018 documented as of this encounter (statuses as of 08/02/2020) Medications Medication Sig Dispensed Refills Start Date End Date Status ciprofloxacin-dexame thasone (CIPRODEX) 0.3-0.1 % otic suspensionIndication s:Mixed hearing loss, unilateral,Chronic mastoiditis,Otitis media 4 DROPS RIGHT EAR ASNEEDED IF WATER GETS IN EAR 7.5 mL 3 01/29/2016 Active Additional Information Patient not taking. Reported on 05/03/2020 Blood Glucose Monitoring Suppl (BixTOUCH ULTRA SYSTEM) W/DEVICE KIT Use as directed 4 times a day as needed for Hyperglycemia (high sugar) or Hypoglycemia (low sugar). Use up to four times a day as directed 1 Kit 0 01/29/2016 Active SpendSmart Payments CompanyUCH ULTRA BLUE STRP USE TO CHECK GLUCOSE [...] 100 Each 6 08/24/2017 Active Glucose Blood (SpendSmart Payments CompanyUCH VERIO) STRP Use up to 4 times a day E11.9 300 Strip 3 08/24/2017 Active aspirin enteric coated 81 MG TBECIndications:Type 2 diabetes mellitus with diabetic neuropathy, unspecified (HCC) Take 1 Tab by mouth daily. 100 Tab 3 02/10/2018 Active Blood Glucose Monitoring Suppl ([employer] VERIO) w/Device KITIndications:Type 2 diabetes mellitus with [...] as of this encounter (statuses as of 08/02/2020) Active Problems Problem Noted Date BPH with [...] as of this encounter (statuses as of 08/02/2020) Resolved Problems Problem Noted Date Resolved Date [...] as of this encounter (statuses as of 08/02/2020) Immunizations Name Administration Dates Next Due Pneumococcal [...] encounter Miscellaneous Notes * Telephone Encounter - Brianna Amaro MED ASSIST - 08/02/2020 8:40 AM EDT Patient has a patient scheduled with Dr. Multani tomorrow. * Telephone Encounter - Unique Good OSA - 07/31/2020 12:21 PM EDT Left message on voicemail to call us back to make an appointment with Dr Nerissa Calhoun * Telephone Encounter - Emely Rodrigues OSA - 07/31/2020 11:48 AM EDT Patients calling requesting an appointment for patient due to " clogged ears." Please advise at [phone] documented in this encounter Plan of Treatment Upcoming Encounters Date Type Specialty Care Team Description 08/03/2020 Office Visit Otolaryngology Del Multani II, MD [address] [place] [address] [phone] 08/23/2020 [facility] [address] [place] [address] [phone] 12/25/2020 Office Visit Family Medicine James Maria DO [address] [place] [address] [phone] Health Maintenance Due Date Last Done Comments [...] Documents on File Type Date Recorded Patient Chicken Catcher Expl 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 Advanced Directive Advanced Directive Advanced Directive Advanced Directive Advanced Directive Advanced Directive Advanced Directive
--- OUTSIDE RECORDS SUMMARY | 2023-07-31 20:32 | External Medical Summary | Summary of Care ---
Author Name Unknown Organization [place] [address] Care Team Providers Care Metal Mover Name Role Phone James Maria Primary Care Provider Reason for Visit * Reason Comments Test Results UA Encounter Details Date Type Department Care Team Description 06/05/2020 Telephone Urology [facility] [address], [address] [place], [place] [id number] Chema Sequeira Jr., MD 27 [facility] [place] [address] [place] [id number] Test Results (UA) Allergies Active Allergy Reactions Severity Noted Date Comments Lisinopril Edema face/lips/tongue High 04/05/2018 documented as of this encounter (statuses as of 07/11/2020) Medications Medication Sig Dispensed Refills Start Date End Date Status ciprofloxacin-dexam ethasone (CIPRODEX) 0.3-0.1 % otic suspensionIndicatio ns:Mixed hearing loss, unilateral,Chronic mastoiditis,Otitis media 4 DROPS RIGHT EAR ASNEEDED IF WATER GETS IN EAR 7.5 mL 3 6 Active Additional Information Patient not taking. Reported on 05/03/2020 11:17 AM Blood Glucose Monitoring Suppl (ONETOUCH ULTRA SYSTEM) [...] 6 7 Active Additional Information Patient not taking. [...] 3 9 Active cyclobenzaprine (FLEXERIL) 5 MG TabletIndications:C hronic right-sided low back pain without sciatica Take 1 Tab by mouth 3 times a day as needed for Muscle spasms. 30 Tab 0 0 Active Additional Information Patient not taking. Reported on 05/03/2020 11:17 AM Meloxicam (MOBIC) 7.5 MG TabletIndications:S pondylosis of thoracolumbar region without myelopathy or radiculopathy Take 1 Tab by mouth daily. for pain. 30 Tab 11 0 Active Meloxicam 15 MG TabletIndications:S pondylosis of thoracolumbar region without myelopathy or radiculopathy Take 1 Tab by mouth daily. 90 Tab 1 0 Active Additional Information Patient not taking. Reported on 06/19/2020 9:07 AM Insulin Syringe-Needle U-100 (RELION INSULIN SYRINGE) 30G X 5/16" 0.3 ML MISCIndications:Typ e 2 diabetes mellitus with polyneuropathy (HCC),Type 2 diabetes mellitus with hemoglobin A1c goal of less than 8.0% (HCC) Use up to 4 x a day for insulin dosing E11.9 1 Box Dosing Unit 3 9 06/19/20 Discontinu ed(Refill) zoster vac recomb adjuvanted (SHINGRIX) 50 MCG/0.5ML injectionIndication s:Need for vaccination for zoster Inject 0.5 mL into a large muscle now and repeat dose in 60 to 180 days 1 Each 1 0 06/19/20 Discontinu ed(Medicat ion List Clean Up) insulin isophane human (NOVOLIN N RELION) 100 UNIT/ML injectionIndication s:Type 2 diabetes mellitus with polyneuropathy (HCC) Inject 35 Units under the skin at bedtime. 4 Vial 5 0 06/19/20 20 Discontinu ed(Refill) insulin REGULAR human (NOVOLIN R RELION) 100 UNIT/ML injectionIndication s:Type 2 diabetes mellitus with polyneuropathy (HCC) Inject 5 Units under the skin three times a day before meals. 4 Vial 3 0 06/19/20 20 Discontinu ed(Refill) amLODIPine (NORVASC) 5 MG Tablet Take 1 tablet by mouth once daily 90 Tab 3 0 06/19/20 20 Discontinu ed(Refill) atorvaSTATin (LIPITOR) 40 MG Tablet Take 1 tablet by mouth once daily 90 Tab 0 0 06/19/20 20 Discontinu ed(Refill) MetFORMIN (GLUCOPHAGE) 1000 MG TabletIndications:T ype 2 diabetes mellitus with hemoglobin A1c goal of less than 7.0% ([facility]) TAKE 1 TABLET BY MOUTH TWICE DAILY WITH MORNING AND EVENING MEALS 180 Tab 0 0 06/19/20 20 Discontinu ed(Refill) tamsulosin (FLOMAX) 0.4 MG Capsule Take 1 capsule by mouth once daily 90 Cap 0 0 06/19/20 Discontinu ed(Refill) documented as of this encounter (statuses as of 07/11/2020) Active Problems Problem Noted Date BPH with [...] as of this encounter (statuses as of 07/11/2020) Resolved Problems Problem Noted Date Resolved Date [...] as of this encounter (statuses as of 07/11/2020) Immunizations Name Administration Dates Next Due Pneumococcal [...] Miscellaneous Notes * Telephone Encounter - Josephine Brewer LPN - 07/11/2020 10:10 AM EDT Pt had appointment but canceled today. * Telephone Encounter - Josephine Brewer LPN - 06/12/2020 7:49 AM EDT Still no answer.not able to leave a message. * Telephone Encounter - Josephine Brewer LPN - 06/08/2020 10:50 AM EDT I have not been able to reach julio for PVR check. * Telephone Encounter - James Maria DO - 06/05/2020 2:49 PM EDT Sounds like a good plan. I'll be seeing him back as well and will make sure he's still doing well and that the blood sugar is still under good control. Thank you! * Telephone Encounter - Chema Sequeira Jr., MD - 06/05/2020 1:59 PM EDT Thank you. We will await the result of the urine culture and can have him come into the office to check a flow PVR and make sure he is not in retention. If he is in retention then a catheter is the best short term option. His history of significant back problems and diabetes predispose him to having a neurogenic bladder. * Telephone Encounter - Celeste Maria OSA - 06/05/2020 1:50 PM EDT I talked to and scheduled an appt with Dr Maria * Telephone Encounter - James Maria DO - 06/05/2020 1:41 PM EDT His Hemoglobin A1C was 7.4% in March, showing well controlled Diabetes Mellitus. If his Diabetes is poorly controlled, this has occurred since that time. I'm not opposed to seeing him back in clinic to re-do lab testing and f/u on the DMII. * Telephone Encounter - Elsa Nuno LPN - 06/05/2020 12:39 PM EDT LMOM * Telephone Encounter - Chema Sequeira Jr., MD - 06/05/2020 12:22 PM EDT He had a urine test last week and it showed poorly controlled diabetes not infection. I want him tosee his PCP. I believe his main issue is sugar and he may need multi disciplinarian care. I will order a urine culture but that won't help his diabetes. * Telephone Encounter - Elsa Nuno LPN - 06/05/2020 11:57 AM EDT Pt requesting UA results. Hx of voiding difficulties and poorly controlled sugar. * Telephone Encounter - Clarissa Basurto OSA - 06/05/2020 10:59 AM EDT Who is Requesting Test Results: Farhana- patient's Primary Care Provider : Dr. Maria Tests Results Requested : ROUTINE URINALYSIS Date of Test : 06/01/2020 Location of Test: [facility] Ordering Provider: Dr. Sequeira Callback Number: [phone] Patient has been made aware that the turnaround time for test results are typically as follows: Laboratory results = within 2 days Pathology results (biopsy results/PAP) = 1-2 weeks Radiology results = within 1 week COVID testing = 24-48 hours documented in this encounter Plan of Treatment Upcoming Encounters Date Type Specialty Care Team Description 08/23/2020 Office Visit Podiatry [address] [place] [address] [phone] 12/25/2020 Office Visit Family Medicine [place] James Sherfiliberto, DO [address] [place] [address] [phone] Scheduled Orders Name Type Priority Associated Diagnoses Orde r Schedule CULTURE QUANT URINE Lab Routine Incomplete emptying of bladder Expected: 06/05/2020 (Approximate), Expires: 09/05/2020 Health Maintenance Due Date Last Done Comments [...] as of this encounter Visit Diagnoses Diagnosis Incomplete emptying of bladder- Primary Incomplete bladder emptying Type 2 diabetes mellitus with hemoglobin A1c goal of less than 8.0% (HCC) documented in this encounter Advance Directives Documents on File Type Date Recorded Patient Skinner Pelts Expl 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 Advanced Directive Advanced Directive Advanced Directive Advanced Directive Advanced Directive Advanced Directive
--- OUTSIDE RECORDS SUMMARY | 2023-07-31 20:32 | External Medical Summary | Summary of Care ---
Author Name Unknown Organization [facility] [place] [address] Care Team Providers Care Chiropractic Physician Name Role Phone Rylan Mariar Sophy Primary Care Provider Encounter Details Date Type Department Care Team Description 07/31/2020 Telephone Otolaryngology [facility] [address] [place] [address] Del Multani II, MD 132 [facility] [place] [address] Allergies Active Allergy Reactions Severity Noted Date Comments Lisinopril Edema face/lips/tongue High 04/05/2018 documented as of this encounter (statuses as of 07/31/2020) Medications Medication Sig Dispensed Refills Start Date End Date Status ciprofloxacin-dexame thasone (CIPRODEX) 0.3-0.1 % otic suspensionIndication s:Mixed hearing loss, unilateral,Chronic mastoiditis,Otitis media 4 DROPS RIGHT EAR ASNEEDED IF WATER GETS IN EAR 7.5 mL 3 01/29/2016 Active Additional Information Patient not taking. Reported on 05/03/2020 Blood Glucose Monitoring Suppl (Preact ULTRA SYSTEM) W/DEVICE KIT Use as directed 4 times a day as needed for Hyperglycemia (high sugar) or Hypoglycemia (low sugar). Use up to four times a day as directed 1 Kit 0 01/29/2016 Active SocialanceUCH ULTRA BLUE STRP USE TO CHECK GLUCOSE 4 TIMES DAILY 100 Strip 0 11/13/2016 Active SocialanceUCH DELICA LANCETS 33G MISC USE ONE TO [...] 100 Each 6 08/24/2017 Active Glucose Blood (Preact VERIO) STRP Use up to 4 times a day E11.9 300 Strip 3 08/24/2017 Active aspirin enteric coated 81 MG TBECIndications:Type 2 diabetes mellitus with diabetic neuropathy, unspecified (HCC) Take 1 Tab by mouth daily. 100 Tab 3 02/10/2018 Active Blood Glucose Monitoring Suppl (BeeBillion) w/Device KITIndications:Type 2 diabetes mellitus with hemoglobin [...] as of this encounter (statuses as of 07/31/2020) Active Problems Problem Noted Date BPH with [...] as of this encounter (statuses as of 07/31/2020) Resolved Problems Problem Noted Date Resolved Date [...] as of this encounter (statuses as of 07/31/2020) Immunizations Name Administration Dates Next Due Pneumococcal [...] Miscellaneous Notes * Telephone Encounter - Jane Weinberg OSA - 07/31/2020 12:44 PM EDT Patient's returned call , patient is scheduled for 08/03/[address] Multani. documented in this encounter Plan of Treatment Upcoming Encounters Date Type Specialty Care Team Description 08/03/2020 Office Visit Otolaryngology Del Multani II, MD [address] [place] [address] [phone] 08/23/2020 [facility] [address] [address] [address] [phone] 12/25/2020 Office Visit Family Medicine James Maria DO [address] [address] [phone] Health Maintenance Due Date Last Done Comments [...] Documents on File Type Date Recorded Patient Tiltrotor Crew Chief Expl 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 Advanced Directive Advanced Directive Advanced Directive Advanced Directive Advanced Directive Advanced Directive Advanced Directive
--- OUTSIDE RECORDS SUMMARY | 2023-07-31 20:32 | External Medical Summary | Summary of Care ---
Author Name Unknown Organization [facility] Address [facility] [place] [address] Care Team Providers Care Lightning Protection Installer Name Role Phone Rylan Mariar Sophy DO Primary Care Provider Reason for Visit * Reason Comments Test Results Encounter Details Date Type Department Care Team Description 04/20/2020 Telephone Interventional [facility], [facility] [address] [place] [address] CousinsAvtar DO [address] [place] [address] [phone] Test Results Allergies Active Allergy Reactions Severity Noted Date Comments Lisinopril Edema face/lips/tongue High 04/05/2018 documented as of this encounter (statuses as of 07/05/2020) Medications Medication Sig Dispensed Refills Start Date End Date Status ciprofloxacin-dexam ethasone (CIPRODEX) 0.3-0.1 % otic suspensionIndicatio ns:Mixed hearing loss, unilateral,Chronic mastoiditis,Otitis media 4 DROPS RIGHT EAR ASNEEDED IF WATER GETS IN EAR 7.5 mL 3 01/29/2016 Active Additional Information Patient not taking. Reported on 05/03/2020 11:17 AM Blood Glucose Monitoring Suppl (Giving AssistantTOUCH ULTRA SYSTEM) W/DEVICE KIT Use as directed 4 times a day as needed for Hyperglycemia (high sugar) or Hypoglycemia (low sugar). Use up to four times a day as directed 1 Kit 0 01/29/2016 Active LIFEMODELERUCH ULTRA BLUE STRP USE TO CHECK GLUCOSE [...] 100 Each 6 08/24/2017 Active Glucose Blood (LIFEMODELERUCH VERIO) STRP Use up to 4 times a day E11.9 300 Strip 3 08/24/2017 Active aspirin enteric coated 81 MG TBECIndications:Typ e 2 diabetes mellitus with diabetic neuropathy, unspecified (HCC) Take 1 Tab by mouth daily. 100 Tab 3 02/10/2018 Active Blood Glucose Monitoring Suppl (mSilica VERIO) w/Device KITIndications:Type 2 diabetes mellitus with hemoglobin A1c goal of 7.0%-8.0% (HCC) Use as directed. Recommend check glucose levels at least 2 times daily-once in AM before breakfast and once 2 hours after evening meal. 1 Kit 0 05/12/2018 Active NOVOLOG FLEXPEN 100 UNIT/ML SOPNIndications:Typ e 2 diabetes mellitus with hemoglobin A1c goal of less than 7.0% (HCC) INJECT 5 UNITS SUBCUTANEOUSLY THREE TIMES DAILY WITH MEALS 15 mL 3 01/26/2019 Active cyclobenzaprine (FLEXERIL) 5 MG TabletIndications:C hronic [...] Tab 11 01/11/2020 Active Meloxicam 15 MG TabletIndications:S pondylosis of thoracolumbar region without myelopathy or radiculopathy Take 1 Tab by mouth daily. 90 Tab 1 01/18/2020 Active Additional Information Patient not taking. Reported on 06/19/2020 9:07 AM documented as of this encounter (statuses as of 07/05/2020) Active Problems Problem Noted Date BPH with [...] as of this encounter (statuses as of 07/05/2020) Resolved Problems Problem Noted Date Resolved Date [...] as of this encounter (statuses as of 07/05/2020) Immunizations Name Administration Dates Next Due Pneumococcal [...] encounter Miscellaneous Notes * Telephone Encounter - Chanell Scott OSA - 04/20/2020 2:09 PM EDT Read status changed to STAT to ensure appropriately prioritized. * Telephone Encounter - Valentina Anthony OSA - 04/20/2020 11:43 AM EDT Who is Requesting Test Results: Patient's Primary Care Provider : Dr. James Maria Tests Results Requested : MRI L Spine Date of Test : 04/10/2020 Location of Test: [facility] Ordering Provider: Dr. Avtar Merchant Callback Number: [phone] Has been in process for almost two weeks. Pt's asking if Dr. Merchant could contact radiology and get it read sooner. Patient has been made aware that the turnaround time for test results are typically as follows: Laboratory results = within 2 days Pathology results (biopsy results/PAP) = 1-2 weeks Radiology results = within 1 week COVID testing = 24-48 hours documented in this encounter Plan of Treatment Upcoming Encounters Date Type Specialty Care Team Description 08/23/[address] [facility] [address] [address] [address] [phone] 12/25/2020 Office Visit Family Medicine James Maria DO [address] [place] [address] [phone] Health Maintenance Due Date Last Done Comments [...] Documents on File Type Date Recorded Patient Sausage Smoker Expl 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 Advanced Directive Advanced Directive Advanced Directive Advanced Directive Advanced Directive Advanced Directive
--- OUTSIDE RECORDS SUMMARY | 2023-07-31 20:32 | External Medical Summary | Summary of Care ---
Author Name Unknown Organization [place] [address] Care Team Providers Care Pattern Molder Name Role Phone James Maria Primary Care Provider Reason for Visit * Reason Onset Date Comments Advice 07/31/2020 Encounter Details Date Type Department Care Team Description 07/31/2020 Telephone Otolaryngology [facility] 132 [facility] [place] [address] Del Multani II, MD 132 [facility] [place] [address] Advice Allergies Active Allergy [...] Reported on 05/03/2020 Blood Glucose Monitoring Suppl ([email or web address] ULTRA SYSTEM) W/DEVICE KIT Use as directed 4 times a day as needed for Hyperglycemia (high sugar) or Hypoglycemia (low sugar). Use up to four times a day as directed 1 Kit 0 01/29/2016 Active [email or web address] ULTRA BLUE STRP USE TO CHECK GLUCOSE [...] 100 Each 6 08/24/2017 Active Glucose Blood ([email or web address] VERIO) STRP Use up to 4 times a day E11.9 300 Strip 3 08/24/2017 Active aspirin enteric coated 81 MG TBECIndications:Type 2 diabetes mellitus with diabetic neuropathy, unspecified (HCC) Take 1 Tab by mouth daily. 100 Tab 3 02/10/2018 Active Blood Glucose Monitoring Suppl ([email or web address] VERIO) w/Device KITIndications:Type 2 diabetes mellitus with [...] Date Recorded Male 11/21/2019 11:44 AM EST documented as of this encounter Miscellaneous Notes * Telephone Encounter - Unique Good OSA - 07/31/2020 12:21 PM EDT Left message on voiceCardioxyl Pharmaceuticalsil to call us back to make an appointment with Dr Nerissa Calhoun * Telephone Encounter - Emely Rodrigues OSA - 07/31/2020 11:48 AM EDT Patients calling requesting an appointment for patient due to " clogged ears." Please advise at [phone] documented in this encounter Plan of Treatment Upcoming Encounters Date Type Specialty Care Team Description 08/23/2020 Office Visit Podiatry [facility] [address] [address] [phone] 12/25/2020 Office Visit Family Medicine James Maria DO [address] [place] [address] [phone] Health Maintenance Due Date Last Done Comments [...] Documents on File Type Date Recorded Patient Supervisor Bottle House Cleaners Expl 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 Advanced Directive Advanced Directive Advanced Directive Advanced Directive Advanced Directive Advanced Directive
--- OUTSIDE RECORDS SUMMARY | 2023-07-31 20:32 | External Medical Summary | Summary of Care ---
Author Name Unknown Organization [place] [address] Care Team Providers Care Chipper Name Role Phone James Maria Primary Care Provider Reason for Visit * Reason Comments Follow Up clogged ears Encounter Details Date Type Department Care Team Description 08/03/2020 Office Visit Otolaryngology [facility] 132 [facility] [place] [address] Del Multani II, MD 132 [facility] [place] [id number] Tympanic membrane perforation, right*; Impacted cerumen of right ear Allergies Active Allergy Reactions Severity Noted Date [...] Reported on 05/03/2020 Blood Glucose Monitoring Suppl (EgullyTOUCH ULTRA SYSTEM) W/DEVICE KIT Use as directed [...] 100 Each 6 08/24/2017 Active Glucose Blood (EgullyTOUCH VERIO) STRP Use up to 4 times a day E11.9 300 Strip 3 08/24/2017 Active aspirin enteric coated 81 MG TBECIndications:Type 2 diabetes mellitus with diabetic neuropathy, unspecified (HCC) Take 1 Tab by mouth daily. 100 Tab 3 02/10/2018 Active Blood Glucose Monitoring Suppl (EgullyTOUCH VERIO) w/Device KITIndications:Type 2 diabetes mellitus with [...] Pressure - - Pulse - - Temperature 36.5 C (97.7 F) 08/03/2020 1 0:19 AM EDT Respiratory Rate - - Oxygen Saturation - - Inhaled Oxygen Concentration - - Weight 78.4 kg (172 lb 12.8 oz) 020 10:19 AM EDT Height - - Body Mass Index 27.89 12/15/2019 10:35 AM EST documented in this encounter Progress Notes * Del Multani II, MD - 08/03/2020 2:39 PM EDT Nursing Notes: Jane Noel LPN 08/03/20 1021 Signed Patient presents today with . Patient is using white board to communicate to the patient. Left ear has no hearing at all, WNL. Right ear has a perforation. states needs ear cleaned out. Last Office/Telemedicine Visit: 12/05/2019 (H72.91) Tympanic membrane perforation, right (primary encounter diagnosis) Plan: AUDIOLOGY LAB AFTER MY CLEANING, I WAS ABLE TO SHARE THE NEED FOR STRICT WATER PRECAUTONS (H91.92) Deafness, left Plan: AUDIOLOGY LAB NO INTERVENTION. (H90.A31) Mixed conductive and sensorineural hearing loss of right ear with restricted hearing of left ear Plan: AUDIOLOGY LAB HE WAS ALREADY WEARING A HEARING AID. I SHARED WITH HIS THAT HE SHOULD CONTINUE. (H61.21) Impacted cerumen of right ear Plan: [...] performed by Agustin Saravia MD at ENDOSCOPY [facility] FOOT/TOE SURGERY NEC 11/14 L foot deformity L-/S-SPINE PARAVERTEBRAL FACET INJ,1 LEVEL 05/03/2020 L-/S-SPINE PARAVERTEBRAL FACET INJ, 1 LEVEL performed by Avtar Merchant DO at OR [facility] MASTOID SURGERY REVISION/APICECTOMY age 18 [facility] 01/07 spur removed Medications Current Outpatient Medications Medication Sig Dispense Refill Ciprofloxacin-Dexamethasone 0.3-0.1 % Otic Suspension (Ciprodex) Administer 4 Drops to the right ear 2 times a day for 7 days. For 7 days. 7.5 mL 1 amLODIPine (NORVASC) 5 MG Tablet Take 1 [...] Tablet Take 1 Tab by mouth daily. (Patient not taking: Reported on 06/19/2020) 90 Tab 1 Meloxicam (MOBIC) 7.5 MG Tablet Take 1 Tab by mouth daily. for pain. 30 Tab 11 cyclobenzaprine (FLEXERIL) 5 MG Tablet Take 1 Tab by mouth 3 times a day as needed for Muscle spasms. (Patient not taking: Reported on 05/03/2020) 30 Tab 0 NOVOLOG FLEXPEN 100 UNIT/ML [...] Erectile Dysfunction. (Patient not taking: Reported on 10/13/2019) 5 Tab 6 ONETOUCH DELICA LANCETS 33G [...] IN EAR (Patient not taking: Reported on 05/03/2020) 7.5 mL 3 Allergies Review of patient's allergies indicates: Allergen Reactions Lisinopril Edema face/lips/tongue Family History Family History Problem Relation Age of Onset Diabetes Uncle (Unspecified) Diabetes Uncle (Unspecified) Diabetes Aunt (Unspecified) Diabetes Aunt (Unspecified) Hypertension Mother MVA age 69 Cancer Father lung - age 54 Diabetes Brother Social History Social History Tobacco Use Smoking status: Former Smoker Quit date: 11/02/1980 Years since quittin.7 Smokeless tobacco: Never Used Substance Use Topics Alcohol use: Yes Alcohol/week: 0.0 standard drinks Comment: As of 12.19.2006, the last noted alcohol intake was 1 ounces. Vaping/E-Cigarette Use Vaping/E-Cigarette Substances Vaping/E-Cigarette Devices Physical Examination: Temp 36.5 C (97.7 F) (Tympanic) | Wt 78.4 kg (172 lb 12.8 oz) | BMI 27.89 kg/m | BSA 1.91 m RIGHT EAR WAS EXAMINED WITH THE OPERATING MICROSCOPE THERE WAS CERUMEN IN THE EXTERNAL AUDITORY CANAL THAT WAS REMOVED USING MICROCYTIC SURGICAL TECHNIQUE. THIS INVOLVED THE USE OF A SLIGHTLY CURVED ADAMS PICK AN ALLIGATOR. SUCTION WAS ALSO USED. HE HAS A LARGE CENTRAL TYMPANIC MEMBRANE PERFORATION WITH HYPERTROPHIED MIDDLE EAR MUCOSA. Given all of the above, the assessment [...] ONE EAR RESOLVED. documented in this encounter Nursing Notes * Jane Noel LPN - 08/03/2020 10:16 AM EDT Patient presents today with . Patient is using white board to communicate to the patient. Left ear has no hearing at all, WNL. Right ear has a perforation. states needs ear cleaned out. Last Office/Telemedicine Visit: 12/05/2019 (H72.91) Tympanic membrane perforation, right (primary encounter diagnosis) Plan: AUDIOLOGY LAB AFTER MY CLEANING, I WAS ABLE TO SHARE THE NEED FOR STRICT WATER PRECAUTONS (H91.92) Deafness, left Plan: AUDIOLOGY LAB NO INTERVENTION. (H90.A31) Mixed conductive and sensorineural hearing loss of right ear with restricted hearing of left ear Plan: AUDIOLOGY LAB HE WAS ALREADY WEARING A HEARING AID. I SHARED WITH HIS THAT HE SHOULD CONTINUE. (H61.21) Impacted cerumen of right ear Plan: REMOVE IMPACTED EAR WAX W/ INSTRUMENT, ONE EAR RESOLVED. documented in this encounter Plan of Treatment Upcoming Encounters Date Type Specialty Care Team Description 08/08/2020 Office Visit Podiatry [facility] [address] [address] [address] [phone] 11/05/2020 Office Visit Otolaryngology Del Multani II, MD [address] [address] [phone] 12/25/2020 Office Visit Family Medicine James Maria DO [address] [address] [address] [phone] Scheduled Orders Name Type Priority Associated Diagnoses Orde r Schedule REMOVE IMPACTED EAR WAX W/ INSTRUMENT, ONE EAR Procedures Routine Impacted cerumen of right ear Ordered: 08/03/2020 Health Maintenance Due Date Last Done Comments [...] Diagnoses Diagnosis Tympanic membrane perforation, right- Primary Impacted cerumen of right ear Impacted cerumen documented in this encounter Advance Directives Documents on File Type Date Recorded Patient Seismograph Shooter Expl 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 Advanced Directive Advanced Directive Advanced Directive Advanced Directive Advanced Directive Advanced Directive Advanced Directive Advanced Directive Advanced Directive Advanced Directive
--- OUTSIDE RECORDS SUMMARY | 2023-07-31 20:32 | External Medical Summary | Summary of Care ---
Author Name Unknown Organization [place] [address] Care Team Providers Care Postie Name Role Phone James Maria Primary Care Provider Reason for Visit * Reason Comments Follow Up 3 month case mgmt as sessment case management Encounter Details Date Type Department Care Team Description 06/20/2020 Candy Cutter Hand Telephone Care Coordination [address] [facility] [place] [address] Jane Arthur RN [address] [place] [address] [phone] Follow Up (3 month case mgmt assessment); ... Allergies Active Allergy Reactions Severity Noted [...] 05/03/2020 11:17 AM Blood Glucose Monitoring Suppl (TruVitalsTOUCH ULTRA SYSTEM) W/DEVICE KIT Use as directed 4 times a day as needed for Hyperglycemia (high sugar) or Hypoglycemia (low sugar). Use up to four times a day as directed 1 Kit 0 01/29/2016 Active TruVitalsTOUCH ULTRA BLUE STRP USE TO CHECK GLUCOSE [...] 100 Each 6 08/24/2017 Active Glucose Blood (TruVitalsTOUCH VERIO) STRP Use up to 4 times a day E11.9 300 Strip 3 08/24/2017 Active aspirin enteric coated 81 MG TBECIndications:Type 2 diabetes mellitus with diabetic neuropathy, unspecified (HCC) Take 1 Tab by mouth daily. 100 Tab 3 02/10/2018 Active Blood Glucose Monitoring Suppl (LumaSense Technologies VERIO) w/Device KITIndications:Type 2 diabetes mellitus [...] Miscellaneous Notes * Telephone Encounter - Jane Arthur RN - 06/20/2020 10:32 AM EDT 3 Month Case Management Assessment Patient Active Problem List Diagnosis Code Mixed [...] N40.1, 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 No recent ER or adm noted 06/19 pcp-- overall okay Overall doing okay, but got mad at his pharmacist at [facility] and stop taking his diabetic medications for a while and lost a fair amount of weight while he was not taking his insulin. Is willing to be back on his medications but wants to get them through the mail order pharmacy now instead.\\ routine labs ordered 06/01/2020 -- epic release auth signed to talk to danny Delcid 05/09 urology -- voiding problems multifactorial (back problems, poorly controlled blood sugars, unrecognized urinary tract problems). PSA normal US r/o blockage but PVR common in DM 05/03 Interventional Pain mgmt. -- Bilateral L5-S1 intra-articular facet joint injection Diagnosis: Lumbar spondylosis without myelopathy or radiculopathy return call from Farhana as patient is not home. she states that he wasn't taking [facility], but he did However, pt was in to see PCP yesterday and got set up for mail-order pharmacy She states that he is taking his medications now He checks his blood sugars fairly regularly but his fingers get sore and he'll quit for a while. She doesn't know if he checked yesterday or today. reports occasional shortness of breath, but has never observed Occasional knee/leg pain, but is not really sure about etiology, taking Tylenol with relief, also has Mobic but [facility] lists as not taking ( states that he is) Denies GI/Gu symptoms, edema, cardiac pain/palpitations Reviewed role of insurance case manager and provided primary insurance case managerclient program manager information Reviewed upcoming appointments Reviewed lab orders placed at PCP appt yesterday -- do A1C sometime this fall, all others can wait til prior to next PCP appt December 2020 Education on DM2--please encourage to check daily, goal is mid-100s for now, report if consistently >200; discussed negative impact of consistently high blood sugars. Medication reconciliation -- unable to complete at this time as states manages his meds Follow up in 3 months or prn --consider closing case if A1C at goal and no utilization as no targeted conditions Jane Arthur RN MSN [facility] [place] Candy Cutter Hand documented in this encounter Plan of Treatment Upcoming Encounters Date Type Specialty Care Team Description 07/11/2020 Office Visit Urology Fabby Nielsen, Chema Seay MD [address] [facility] [address] [place] [address] [phone] 08/23/2020 Office Visit Podiatry [facility] [address] [place] [address] [phone] 12/25/2020 Office Visit Family Medicine James Maria, [address] [address] [phone] Health Maintenance Due Date Last Done Comments [...] Documents on File Type Date Recorded Patient Center Administrator Expl 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 Advanced Directive Advanced Directive Advanced Directive Advanced Directive Advanced Directive Advanced Directive
--- OUTSIDE RECORDS SUMMARY | 2023-07-31 20:33 | External Medical Summary | Summary of Care ---
Author Name Unknown Organization [place] [address] Care Team Providers Care Lab Rep Name Role Phone James Maria DO Primary Care Provider Reason for Visit * Reason Comments Follow Up elevated glucose Encounter Details Date Type Department Care Team Description 06/19/2020 Office Visit Family Practice [facility] [address] [place] [address] James Maria DO [address] [place] [address] [phone] HTN, goal below 130/80*; Type 2 diabetes mellitus with polyneuropathy (HCC); Type 2 diabetes mellitus with hemoglobin A1c goal of less than 7.0% (HCC); Type 2 diabetes mellitus with hemoglobin A1c goal of less than 8.0% (HCC); Dyslipidemia Allergies Active Allergy Reactions Severity Noted Date Comments Lisinopril Edema face/lips/tongue High 04/05/2018 documented as of this encounter (statuses as of 06/19/2020) Medications Medication Sig Dispensed Refills Start Date End Date Status ciprofloxacin-dexam ethasone (CIPRODEX) 0.3-0.1 % otic suspensionIndicatio ns:Mixed hearing loss, unilateral,Chronic mastoiditis,Otitis media 4 DROPS RIGHT EAR ASNEEDED IF WATER GETS IN EAR 7.5 mL 3 6 Active Additional Information Patient not taking. Reported on 05/03/2020 11:17 AM Blood Glucose Monitoring Suppl (FLENS ULTRA SYSTEM) W/DEVICE KIT Use as directed [...] at bedtime. 4 Each 5 0 Active insulin REGULAR human (NOVOLIN R RELION) 100 UNIT/ML injectionIndication s:Type 2 diabetes mellitus with polyneuropathy (HCC) Inject 5 Units under the skin three times a day before meals. 4 Each 5 0 Active MetFORMIN (GLUCOPHAGE) [...] dosing E11.9 3 Each 3 0 Active Insulin Syringe-Needle U-100 (RELION INSULIN SYRINGE) 30G X 5/16" 0.3 ML MISCIndications:Typ e 2 diabetes mellitus with polyneuropathy (HCC),Type 2 diabetes mellitus with hemoglobin A1c goal of less than 8.0% (HCC) Use up to 4 x a day for insulin dosing E11.9 1 Box Dosing Unit 3 9 06/19/20 20 Discontinu ed(Refill) zoster vac recomb adjuvanted (SHINGRIX) 50 MCG/0.5ML injectionIndication s:Need for vaccination for zoster Inject 0.5 mL into a large muscle now and repeat dose in 60 to 180 days 1 Each 1 0 06/19/20 20 Discontinu ed(Medicat ion List Clean Up) insulin [...] goal of less than 7.0% ([facility]) TAKE 1 TABLET BY MOUTH TWICE DAILY WITH MORNING AND EVENING MEALS 180 Tab 0 0 06/19/20 20 Discontinu ed(Refill) tamsulosin (FLOMAX) 0.4 MG Capsule Take 1 capsule by mouth once daily 90 Cap 0 0 06/19/20 20 Discontinu ed(Refill) documented as of this encounter (statuses as of 06/19/2020) Active Problems Problem Noted Date BPH with [...] as of this encounter (statuses as of 06/19/2020) Resolved Problems Problem Noted Date Resolved Date [...] as of this encounter (statuses as of 06/19/2020) Immunizations Name Administration Dates Next Due Pneumococcal [...] AM EDT documented as of this encounter Last Filed Vital Signs Vital Sign Reading Time Taken Comments Blood Pressure 126/72 06/19/2020 9:09 AM EDT Pulse 76 06/19/2020 9:09 AM EDT irreg ular Temperature 36.3 C (97.4 F) 06/19/2020 9:09 AM E DT Respiratory Rate 18 06/19/2020 9:09 AM EDT Oxygen Saturation - - Inhaled Oxygen Concentration - - Weight 78.5 kg (173 lb) 06/19/2020 9:09 AM EDT Height - - Body Mass Index 27.92 12/15/2019 10:35 AM EST documented in this encounter Progress Notes * James Maria, DO - 06/19/2020 9:21 AM EDT Nursing Notes: Rita Grossman, TONY 06/19/20 0911 Signed The patient has been properly identified by confirmation of name and date of . Chief Complaint Patient presents with Follow Up elevated glucose ASSESSMENT/PLAN: 1. Type 2 diabetes mellitus with polyneuropathy (HCC) - insulin isophane human (NOVOLIN N RELION) 100 UNIT/ML injection; Inject 35 Units under the skin at bedtime. Dispense: 4 Each; Refill: 5 - insulin REGULAR human (NOVOLIN R RELION) 100 UNIT/ML injection; Inject 5 Units under the skin three times a day before meals. Dispense: 4 Each; Refill: 5 - Insulin Syringe-Needle U-100 (RELION INSULIN SYRINGE) 30G X 5/16" 0.3 ML MISC; Use up to 4 x a day for insulin dosing E11.9 Dispense: 3 Each; Refill: 3 - HEMOGLOBIN A1C; Future - BASIC METAB PANEL, BMP; Future - CBC/DIFF WITH REFLEX WORKUP OF ANEMIA; Future - ALBUMIN / CREATININE RATIO, URINE; Future 2. Type 2 diabetes mellitus with hemoglobin A1c goal of less than 7.0% ([facility]) - MetFORMIN (GLUCOPHAGE) 1000 MG Tablet; Take 1 Tab by mouth 2 times a day with morning and eveningmeals. Dispense: 180 Tab; Refill: 3 - ALBUMIN / CREATININE RATIO, URINE; Future 3. Type 2 diabetes mellitus with hemoglobin A1c goal of less than 8.0% ([facility]) - Insulin Syringe-Needle U-100 (RELION INSULIN SYRINGE) 30G X 5/16" 0.3 ML MISC; Use up to 4 x a day for insulin dosing E11.9 Dispense: 3 Each; Refill: 3 - ALBUMIN / CREATININE RATIO, URINE; Future 4. HTN, goal below 130/80 - HEMOGLOBIN A1C; Future - BASIC METAB PANEL, BMP; Future - ALBUMIN / CREATININE RATIO, URINE; Future 5. Dyslipidemia - LIPID PANEL WITH DIRECT LDL IF TRIGLYCERIDE IS ELEVATED; Future HPI: Selvin Sebastian is a 74 year old male who: Presents today in follow-up. Overall doing okay, but got mad at his pharmacist at [facility] and stoptaking his diabetic medications for a while and lost a fair amount of weight while he was not taking his insulin. Is willing to be back on his medications but wants to get them through the mail orderpharmacy now instead. Has not been feeling bad, denies malaise or fatigue or polyuria. Did not wearhis hearing aids in today. ROS: CONSTITUTIONAL: no weight loss, no fevers, no sweats HEENT: no change in vision or hearing, no congestion, no sore throat CARDIAC: no chest pain, no palpitations, no orthopnea, no PIERCE, no syncope RESP: no wheezing and no SOB GI: no pain, no NVDC, no melena/hematochezia SKIN: no rashes MSK: no significant joint or muscle pain and no swelling : no dysuria or discharge NEURO: no memory loss, no numbness PSYCH: no SI/HI PHYSICAL EXAMINATION: BP 126/72 | Pulse 76[irregular[ | Temp (Src) 97.4 (Tympanic) | Resp 18 | Wt 173 lbs (78.472kg) | BMI 27.92 kg/m | BSA 1.91 m GENERAL: alert, healthy, no distress, well nourished and well developed HEAD: normocephalic, atraumatic EYES: PERRL, EOMI, Conjunctiva are pink and non-injected, sclera clear EARS: External ears normal, Canals clear, TM's Normal NOSE: no mucosal erythema, no mucosal edema, no purulent discharge OROPHARYNX: no exudate, no erythema, lips, buccal mucosa, and tongue normal, mucous membranes are moist and dentition normal NECK: supple, no adenopathy, thyroid normal size, non-tender, without nodularity HEART: regular rate & rhythm, no murmurs and no gallops LUNGS: clear to auscultation bilaterally. No wheezing/rales/rhonchi ABDOMEN: abdomen soft, non-tender, normal bowel sounds and no masses or organomegaly SKIN: skin color, texture, turgor are normal, no rashes or significant lesions EXTREMITIES: no joint deformities, effusion, or inflammation, no edema, no clubbing, no cyanosis, Full ROM, Pulses Intact, Strength equal bilaterally Patient Active Problem List Diagnosis Code Mixed conductive and sensorineural hearing loss of right ear with restricted hearing of left ear H90.A31 Type 2 diabetes mellitus with hemoglobin A1c goal of less than 8.0% ([facility]) E11.9 Dyslipidemia E78.5 HTN, goal below 130/80 I10 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, bilateral M21.961, M21.962 Type 2 diabetes mellitus with polyneuropathy ([facility]) E11.42 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, 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, 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 Past Medical History: Diagnosis Date Allergic rhinitis 2004 BPH with obstruction/lower urinary tract symptoms 03/13/2020 Chronic mastoiditis 2004 Diabetes mellitus ([facility]) Dysfunction of eustachian tube 2004 [...] performed by Agustin Saravia MD at ENDOSCOPY [facility] FOOT/TOE SURGERY NEC 11/14 L foot deformity L-/S-SPINE PARAVERTEBRAL FACET INJ,1 LEVEL 05/03/2020 L-/S-SPINE PARAVERTEBRAL FACET INJ, 1 LEVEL performed by Avtar Merchant DO at OR [facility] MASTOID SURGERY REVISION/APICECTOMY age 18 [facility] SHOULDER ARTHROSCOPY SURGERY 01/07 spur removed Current [...] by mouth daily. 90 Cap 3 Meloxicam (MOBIC) 7.5 MG Tablet Take 1 Tab by mouth daily. for pain. 30 Tab 11 Blood Glucose Monitoring Suppl (ONETOUCH VERIO) w/Device [...] as directed with flexpen 100 Each 6 ONETOUCH DELICA LANCETS 33G MISC USE ONE TO CHECK GLUCOSE 4 TIMES DAILY 100 Each 0 ONETOUCH ULTRA BLUE STRP USE TO CHECK GLUCOSE 4 TIMES DAILY 100 Strip 0 Blood Glucose Monitoring Suppl (ONETOUCH ULTRA SYSTEM) W/DEVICE KIT Use as directed 4 times a day as needed for Hyperglycemia (high sugar) or Hypoglycemia (low sugar). Use up to four times a dayas directed 1 Kit 0 Meloxicam 15 MG Tablet Take 1 Tab by mouth daily. (Patient not taking: Reported on 06/19/2020) 90 Tab 1 cyclobenzaprine (FLEXERIL) 5 MG Tablet Take 1 Tab by mouth 3 times a day as needed for Muscle spasms. (Patient not taking: Reported on 05/03/2020) 30 Tab 0 NOVOLOG FLEXPEN 100 UNIT/ML SOPN INJECT 5 UNITS SUBCUTANEOUSLY THREE TIMES DAILY WITH MEALS 15 mL 3 Sildenafil Citrate (VIAGRA) 50 MG Tablet Take 1 Tab by mouth as needed for Erectile Dysfunction. (Patient not taking: Reported on 10/13/2019) 5 Tab 6 ciprofloxacin-dexamethasone (CIPRODEX) 0.3-0.1 % otic suspension 4 DROPS RIGHT EAR ASNEEDED IF WATER GETS IN EAR (Patient not taking: Reported on 05/03/2020) 7.5 mL 3 Review of patient's allergies indicates: Allergen Reactions Lisinopril Edema face/lips/tongue James Maria DO Family Practice [facility] [address] [facility] [place] [address] (This note was completed using the dictation program Fluency Direct. As such, there may be misspellings, word substitutions, or other variations that should not change the essence of the clinical content of this encounter note.If there is need for further clarification, please direct questions to the provider listed above.) documented in this encounter Nursing Notes * Rita Grossman LPN - 06/19/2020 9:09 AM EDT The patient has been properly identified by confirmation of name and date of . Chief Complaint Patient presents with Follow Up elevated glucose documented in this encounter Plan of Treatment Upcoming Encounters Date Type Specialty Care Team Description 07/11/2020 Office Visit Urology Fabby Nielsen, Chema Seay MD [address] [address] [place] [address] [phone] 08/23/2020 Office Visit Podiatry [facility] [address] [facility] [place] [address] [phone] 12/25/2020 Office Visit Family Medicine James Maria DO [address] [facility] [place] [address] [phone] Scheduled Orders Name Type Priority Associated Diagnoses Orde r Schedule HEMOGLOBIN A1C Lab Routine Type 2 diabetes mellitus with polyneuropathy (HCC) HTN, goal below 130/80 Expected: 06/19/2020 (Approximate), Expires: 06/19/2021 BASIC METAB PANEL, BMP Lab Routine Type 2 diabetes mellitus with polyneuropathy (HCC) HTN, goal below 130/80 Expected: 06/19/2020 (Approximate), Expires: 06/19/2021 LIPID PANEL WITH DIRECT LDL IF TRIGLYCERIDE IS ELEVATED Lab Routine Dyslipidemia Expected: 06/19/2020, Expires: 06/19/2021 CBC/DIFF WITH REFLEX WORKUP OF ANEMIA Lab Routine Type 2 diabetes mellitus with polyneuropathy (HCC) Expected: 06/19/2020 (Approximate), Expires: 06/19/2021 ALBUMIN / CREATININE RATIO, URINE Lab Routine Type 2 diabetes mellitus with polyneuropathy (HCC) Type 2 diabetes mellitus with hemoglobin A1c goal of less than 7.0% (HCC) Type 2 diabetes mellitus with hemoglobin A1c goal of less than 8.0% (HCC) HTN, goal below 130/80 Expected: 06/19/2020 (Approximate), Expires: 06/19/2021 Health Maintenance Due Date Last Done Comments [...] encounter Visit Diagnoses Diagnosis HTN, goal below 130/80- Primary Unspecified essential hypertension Type 2 diabetes mellitus with polyneuropathy (HCC) Type II or unspecified type diabetes mellitus with neurological manifestations, not stated as uncontrolled Type 2 diabetes mellitus with hemoglobin A1c goal of less than 7.0% (HCC) Type 2 diabetes mellitus with hemoglobin A1c goal of less than 8.0% (HCC) Dyslipidemia Other and unspecified hyperlipidemia documented in this encounter Advance Directives Documents on File Type Date Recorded Patient Web Application Dev Specialist Expl 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 Advanced Directive Advanced Directive Advanced Directive Advanced Directive Advanced Directive Advanced Directive
--- OUTSIDE RECORDS SUMMARY | 2023-07-31 20:33 | External Medical Summary | Summary of Care ---
Author Name Unknown Organization [place] [address] Care Team Providers Care Cartridge Loader Name Role Phone James Maria Primary Care Provider Reason for Visit * Reason Comments Test Results UA Encounter Details Date Type Department Care Team Description 06/05/2020 Telephone Urology [facility] [address], [address] [place], [place] [id number] Chema Sequeira Jr., MD [address] [facility] [address] [place] [id number] Test Results (UA) Allergies Active Allergy Reactions Severity Noted Date Comments Lisinopril Edema face/lips/tongue High 04/05/2018 documented as of this encounter (statuses as of 06/05/2020) Medications Medication Sig Dispensed Refills Start Date End Date Status ciprofloxacin-dexam ethasone (CIPRODEX) 0.3-0.1 % otic suspensionIndicatio ns:Mixed hearing loss, unilateral,Chronic mastoiditis,Otitis media 4 DROPS RIGHT EAR ASNEEDED IF WATER GETS IN EAR 7.5 mL 3 01/29/2016 Active Additional Information Patient not taking. Reported on 05/03/2020 11:17 AM Blood Glucose Monitoring Suppl (MetanautixTOUCH ULTRA SYSTEM) W/DEVICE KIT Use as directed 4 times a day as needed for Hyperglycemia (high sugar) or Hypoglycemia (low sugar). Use up to four times a day as directed 1 Kit 0 01/29/2016 Active MetanautixTOUCH ULTRA BLUE STRP USE TO CHECK GLUCOSE [...] 100 Each 6 08/24/2017 Active Glucose Blood (MetanautixTOUCH VERIO) STRP Use up to 4 times a day E11.9 300 Strip 3 08/24/2017 Active aspirin enteric coated 81 MG TBECIndications:Typ e 2 diabetes mellitus with diabetic neuropathy, unspecified (HCC) Take 1 Tab by mouth daily. 100 Tab 3 02/10/2018 Active Blood Glucose Monitoring Suppl (MetanautixTOUCH VERIO) w/Device KITIndications:Type 2 diabetes mellitus with [...] WITH MEALS 15 mL 3 01/26/2019 Active Insulin Syringe-Needle U-100 (RELION INSULIN SYRINGE) 30G X 5/16" 0.3 ML MISCIndications:Typ e 2 diabetes mellitus with polyneuropathy (HCC),Type 2 diabetes mellitus with hemoglobin A1c goal of less than 8.0% (HCC) Use up to 4 x a day for insulin dosing E11.9 1 Box Dosing Unit 3 10/14/2019 Active zoster vac recomb adjuvanted (SHINGRIX) 50 MCG/0.5ML injectionIndication s:Need for vaccination for zoster Inject 0.5 mL into a large muscle now and repeat dose in 60 to 180 days 1 Each 1 11/21/2019 Active cyclobenzaprine (FLEXERIL) 5 MG TabletIndications:C hronic right-sided low back pain without sciatica Take 1 Tab by mouth 3 times a day as needed for Muscle spasms. 30 Tab 0 11/21/2019 Active Additional Information Patient not taking. Reported on 05/03/2020 11:17 AM insulin isophane human (NOVOLIN N RELION) 100 UNIT/ML injectionIndication s:Type 2 diabetes mellitus with polyneuropathy (HCC) Inject 35 Units under the skin at bedtime. 4 Vial 5 11/21/2019 Active insulin REGULAR human (NOVOLIN R RELION) 100 UNIT/ML injectionIndication s:Type 2 diabetes mellitus with polyneuropathy (HCC) Inject 5 Units under the skin three times a day before meals. 4 Vial 3 11/21/2019 Active Meloxicam (MOBIC) 7.5 MG TabletIndications:S pondylosis of [...] by mouth once daily 90 Tab 3 05/06/2020 Active atorvaSTATin (LIPITOR) 40 MG Tablet Take 1 tablet by mouth once daily 90 Tab 0 05/07/2020 Active MetFORMIN (GLUCOPHAGE) 1000 MG TabletIndications:T ype 2 diabetes mellitus with hemoglobin A1c goal of less than 7.0% ([facility]) TAKE 1 TABLET BY MOUTH TWICE DAILY WITH MORNING AND EVENING MEALS 180 Tab 0 05/07/2020 Active tamsulosin (FLOMAX) 0.4 MG Capsule Take 1 capsule by mouth once daily 90 Cap 0 05/07/2020 Active documented as of this encounter (statuses as of 06/05/2020) Active Problems Problem Noted Date BPH with [...] as of this encounter (statuses as of 06/05/2020) Resolved Problems Problem Noted Date Resolved Date [...] as of this encounter (statuses as of 06/05/2020) Immunizations Name Administration Dates Next Due Pneumococcal [...] or suspected to have Coronavirus / COVID-19? Unable to assess 06/01/2020 2:34 PM EDT documented as of this encounter Miscellaneous Notes * Telephone Encounter - James Maria DO [...] of Test : 06/01/2020 Location of Test: [place] Ordering Provider: Dr. Sequeira Callback Number: [phone] Patient has been made aware that the turnaround time for test results are typically as follows: Laboratory results = within 2 days Pathology results (biopsy results/PAP) = 1-2 weeks Radiology results = within 1 week COVID testing = 24-48 hours documented in this encounter Plan of Treatment Upcoming Encounters Date Type Specialty Care Team Description 06/19/2020 Office Visit Family Medicine James Maria, [address] [place] [id number] 07/11/2020 Office Visit Urology Fabby Nielsen, Chema Seay MD [address] [address] [place] [address] [phone] 08/23/2020 Office Visit Podiatry [facility] [address] [place] [address] [phone] Scheduled Orders Name Type Priority Associated Diagnoses [...] Documents on File Type Date Recorded Patient Medical Claims Examiner Expl 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 Advanced Directive Advanced Directive Advanced Directive Advanced Directive Advanced Directive
--- OUTSIDE RECORDS SUMMARY | 2023-07-31 20:33 | External Medical Summary ---
Author Name Unknown Address [address] [facility] [place] [address] Phone Organization K01:[facility] [address] [facility] [place] [address] Laboratory Report Ordering Provider Test Date Status MEJIABENJAMIN 06/01/2020 15:18:00 Final Observation Date Value Abnormality Reference (Units ) Status BUN 06/01/2020 22:34 17 6-20 (mg/dL) Final Creatinine 06/01/2020 22:34 1.1 0.6-1.2 (mg/ dL) Final E Glom Filt Rate 06/01/2020 22:34 >60.0 >60 Final Performing Location [facility] [address] [facility] [place] [address]
--- OUTSIDE RECORDS SUMMARY | 2023-07-31 20:33 | External Medical Summary | Summary of Care ---
Author Name Unknown Organization [facility] Address [facility] [place] [address] Care Team Providers Care Manager Perioperative Name Role Phone Rylan Mariar Sophy DO Primary Care Provider Reason for Visit * Reason Comments Follow Up Encounter Details Date Type Department Care Team Description 05/07/2020 Telephone [facility] [address] [place] [place] [address] CousinAvtar carmona DO [address] [place] [address] [phone] Follow Up Allergies Active Allergy Reactions Severity Noted Date Comments Lisinopril Edema face/lips/tongue High 04/05/2018 documented as of this encounter (statuses as of 06/06/2020) Medications Medication Sig Dispensed Refills Start Date End Date Status ciprofloxacin-dexam ethasone (CIPRODEX) 0.3-0.1 % otic suspensionIndicatio ns:Mixed hearing loss, unilateral,Chronic mastoiditis,Otitis media 4 DROPS RIGHT EAR ASNEEDED IF WATER GETS IN EAR 7.5 mL 3 01/29/2016 Active Additional Information Patient not taking. Reported on 05/03/2020 11:17 AM Blood Glucose Monitoring Suppl (Smash BucketTOUCH ULTRA SYSTEM) W/DEVICE KIT Use as directed 4 times a day as needed for Hyperglycemia (high sugar) or Hypoglycemia (low sugar). Use up to four times a day as directed 1 Kit 0 01/29/2016 Active Clean RunnerUCH ULTRA BLUE STRP USE TO CHECK GLUCOSE [...] 100 Each 6 08/24/2017 Active Glucose Blood (Smash BucketTOUCH VERIO) STRP Use up to 4 times a day E11.9 300 Strip 3 08/24/2017 Active aspirin enteric coated 81 MG TBECIndications:Typ e 2 diabetes mellitus with diabetic neuropathy, unspecified (HCC) Take 1 Tab by mouth daily. 100 Tab 3 02/10/2018 Active Blood Glucose Monitoring Suppl (Vator.TV VERIO) w/Device KITIndications:Type 2 diabetes mellitus with [...] of less than 7.0% ([facility]) TAKE 1 TABLET BY MOUTH TWICE DAILY WITH MORNING AND EVENING MEALS 180 Tab 0 05/07/2020 Active tamsulosin (FLOMAX) 0.4 MG Capsule Take 1 capsule by mouth once daily 90 Cap 0 05/07/2020 Active documented as of this encounter (statuses as of 06/06/2020) Active Problems Problem Noted Date BPH with [...] as of this encounter (statuses as of 06/06/2020) Resolved Problems Problem Noted Date Resolved Date [...] as of this encounter (statuses as of 06/06/2020) Immunizations Name Administration Dates Next Due Pneumococcal [...] encounter Miscellaneous Notes * Telephone Encounter - Avtar Merchant DO - 06/06/2020 7:46 AM EDT I would not pursue any further injection for at least the next few months. I do not have alternative options at this time * Telephone Encounter - Franci Ward OSA - 06/05/2020 2:43 PM EDT Patient is requesting another injection if recommended. * Telephone Encounter - Clarissa Basurto OSA - 06/05/2020 10:53 AM EDT Patient's Farhana calling stating that the patient is in some pain and radiates down his legs. Patient is also still sore. Return call to Farhana with any questions at [phone]. * Telephone Encounter - Gabriela Ojeda LPN - 05/07/2020 3:07 PM EDT called-stated pain is gone for the most part, just stiff and sore. Advised it's probably from the injection and should resolve on it's own. Advised to call back with report in 3wks as per discharge orders. documented in this encounter Plan of Treatment Upcoming Encounters Date Type Specialty Care Team Description 06/19/2020 Office Visit Family Medicine James Maria, [address] [place] [address] [phone] 07/11/2020 Office Visit Urology Chema Sequeira Jr., MD [address] [address] [place] [address] [phone] 08/23/2020 Office Visit Podiatry [facility] [address] [place] [address] [phone] Health Maintenance Due Date Last Done Comments [...] File Type Date Recorded Patient Hospital Account Manager Expl 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 Advanced Directive Advanced Directive Advanced Directive Advanced Directive Advanced Directive
--- OUTSIDE RECORDS SUMMARY | 2023-07-31 20:33 | External Medical Summary | Summary of Care ---
Author Name Unknown Organization [facility] Address [facility] [place] [address] Care Team Providers Care Wide Area Network Systems Administrator Name Role Phone Rylan Mariar Sophy DO Primary Care Provider Reason for Visit * Reason Comments Follow Up Encounter Details Date Type Department Care Team Description 05/07/2020 Telephone Interventional Pain Center, [facility] [address] [place] [address] CousinAvtar carmona DO [address] [place] [address] [phone] Follow Up Allergies Active Allergy Reactions Severity [...] 05/03/2020 11:17 AM Blood Glucose Monitoring Suppl (Ground Zero Group CorporationTOUCH ULTRA SYSTEM) W/DEVICE KIT Use as directed 4 times a day as needed for Hyperglycemia (high sugar) or Hypoglycemia (low sugar). 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 100 Tab 3 02/10/2018 Active Blood Glucose Monitoring Suppl (Plehn Analytics VERIO) w/Device KITIndications:Type 2 diabetes mellitus with [...] goal of less than 7.0% ([facility]) TAKE 1 TABLET BY MOUTH TWICE DAILY [...] encounter Miscellaneous Notes * Telephone Encounter - Clarissa Basurto OSA - 06/05/2020 10:53 AM EDT Patient's Farhana calling stating that the patient is in some pain and radiates down his legs. Patient is also still sore. Return call to Farhana with any questions at [phone]. * Telephone Encounter - Gabriela Ojeda LPN [...] Urology Fabby Nielsen, Chema Seay MD 27 [facility] [address] [place] [address] 08/23/2020 Office Visit Podiatry Region, [facility] 132 [facility] [place] [address] Health Maintenance Due Date Last Done [...] Documents on File Type Date Recorded Patient Jira Developer Expl 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 Advanced Directive Advanced Directive Advanced Directive Advanced Directive Advanced Directive
--- OUTSIDE RECORDS SUMMARY | 2023-07-31 20:33 | External Medical Summary | Summary of Care ---
Author Name Unknown Organization [place] [address] Care Team Providers Care Founder And President Name Role Phone James Maria Primary Care Provider Reason for Visit * Reason Comments Test Results UA Encounter Details Date Type Department Care Team Description 06/05/2020 Telephone Urology [facility] [address], [address] [place], [place] [id number] Chema Sequeira Jr., MD 27 [facility] [address] [place] [id number] Test Results (UA) Allergies Active Allergy Reactions Severity Noted Date Comments Lisinopril Edema face/lips/tongue High 04/05/2018 documented as of this encounter (statuses as of 06/08/2020) Medications Medication Sig Dispensed Refills Start Date End Date Status ciprofloxacin-dexam ethasone (CIPRODEX) 0.3-0.1 % otic suspensionIndicatio ns:Mixed hearing loss, unilateral,Chronic mastoiditis,Otitis media 4 DROPS RIGHT EAR ASNEEDED IF WATER GETS IN EAR 7.5 mL 3 01/29/2016 Active Additional Information Patient not taking. Reported on 05/03/2020 11:17 AM Blood Glucose Monitoring Suppl (OLIVERS ApparelTOUCH ULTRA SYSTEM) W/DEVICE KIT Use as directed 4 times a day as needed for Hyperglycemia (high sugar) or Hypoglycemia (low sugar). Use up to four times a day as directed 1 Kit 0 01/29/2016 Active OLIVERS ApparelTOUCH ULTRA BLUE STRP USE TO CHECK GLUCOSE [...] 100 Each 6 08/24/2017 Active Glucose Blood (OLIVERS ApparelTOUCH VERIO) STRP Use up to 4 times a day E11.9 300 Strip 3 08/24/2017 Active aspirin enteric coated 81 MG TBECIndications:Typ e 2 diabetes mellitus with diabetic neuropathy, unspecified (HCC) Take 1 Tab by mouth daily. 100 Tab 3 02/10/2018 Active Blood Glucose Monitoring Suppl (OLIVERS ApparelTOUCH VERIO) w/Device KITIndications:Type 2 diabetes mellitus with [...] hemoglobin A1c goal of less than 7.0% ([facility]) TAKE 1 TABLET BY MOUTH TWICE DAILY WITH MORNING AND EVENING MEALS 180 Tab 0 05/07/2020 Active tamsulosin (FLOMAX) 0.4 MG Capsule Take 1 capsule by mouth once daily 90 Cap 0 05/07/2020 Active documented as of this encounter (statuses as of 06/08/2020) Active Problems Problem Noted Date BPH with [...] as of this encounter (statuses as of 06/08/2020) Resolved Problems Problem Noted Date Resolved Date [...] as of this encounter (statuses as of 06/08/2020) Immunizations Name Administration Dates Next Due Pneumococcal [...] of Test : 06/01/2020 Location of Test: [place] Ordering Provider: Dr. Sequeira Callback Number: [phone] Patient has been made aware that the turnaround time for test results are typically as follows: Laboratory results = within 2 days Pathology results (biopsy results/PAP) = 1-2 weeks Radiology results = within 1 week COVID testing = 24-48 hours documented in this encounter Plan of Treatment Upcoming Encounters Date Type Specialty Care Team Description 06/19/2020 Office Visit Family Medicine James Maria, 132 [facility] [place] [address] [phone] 07/11/2020 Office Visit Urology Chema Sequeira Jr., MD [address] [address] [place] [address] [phone] 08/23/2020 Office Visit Podiatry [facility] [address] [place] [address] [phone] Scheduled Orders Name Type Priority Associated Diagnoses [...] of less than 8.0% ([facility]) documented in this encounter Advance Directives Documents on File Type Date Recorded Patient Summer Law Associate Expl 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 Advanced Directive Advanced Directive Advanced Directive Advanced Directive Advanced Directive
--- OUTSIDE RECORDS SUMMARY | 2023-07-31 20:33 | External Medical Summary | Summary of Care ---
Author Name Unknown Organization [facility] Address [facility] [place] [address] Care Team Providers Care Evaporator Helper Name Role Phone Rylan Mariar Sophy DO Primary Care Provider Reason for Visit * Reason Comments Follow Up Encounter Details Date Type Department Care Team Description 05/07/2020 Telephone Interventional Pain Center, [facility] [address] [place] [address] CousinAvtar carmona DO [address] [place] [address] [phone] Follow Up Allergies Active Allergy Reactions Severity [...] 05/03/2020 11:17 AM Blood Glucose Monitoring Suppl (PercuVisionTOUCH ULTRA SYSTEM) W/DEVICE KIT Use as directed 4 times a day as needed for Hyperglycemia (high sugar) or Hypoglycemia (low sugar). Use up to four times a day as directed 1 Kit 0 01/29/2016 Active LiquiGlideUCH ULTRA BLUE STRP USE TO CHECK GLUCOSE [...] 100 Each 6 08/24/2017 Active Glucose Blood (PercuVisionTOUCH VERIO) STRP Use up to 4 times a day E11.9 300 Strip 3 08/24/2017 Active aspirin enteric coated 81 MG TBECIndications:Typ e 2 diabetes mellitus with diabetic neuropathy, unspecified (HCC) Take 1 Tab by mouth daily. 100 Tab 3 02/10/2018 Active Blood Glucose Monitoring Suppl ([employer] VERIO) w/Device KITIndications:Type 2 diabetes mellitus with [...] goal of less than 7.0% ([facility]) TAKE 1 TABLET BY MOUTH [...] encounter Miscellaneous Notes * Telephone Encounter - Franci Ward OSA - 06/05/2020 2:43 PM EDT Patient is requesting another injection if recommended. * Telephone Encounter - Clarissa Basurto OSA - 06/05/2020 10:53 AM EDT Patient's Farhana calling stating that the patient is in some pain and radiates down his legs. Patient is also still sore. Return call to Farhana with any questions at [phone]. * Telephone Encounter - Gabriela Ojeda LPN [...] Family Medicine James Maria, 132 [place] [address] [phone] 07/11/2020 Office Visit Urology Chema Sequeira Jr., MD [address] [address] [place] [id number] 08/23/2020 Office Visit Podiatry Region, [facility] [address] [place] [address] [phone] Health Maintenance Due Date Last Done Comments [...] Documents on File Type Date Recorded Patient Pipe Caulker Expl 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 Advanced Directive Advanced Directive Advanced Directive Advanced Directive Advanced Directive
--- OUTSIDE RECORDS SUMMARY | 2023-07-31 20:33 | External Medical Summary | Summary of Care ---
Author Name Unknown Organization [place] [address] Care Team Providers Care Systems Integration Advisor Name Role Phone Rylan Mariar Sophy Primary Care Provider Reason for Visit * Reason Comments case management UTC #1 Encounter Details Date Type Department Care Team Description 06/11/2020 Rn Mobile Telephone Family Practice [facility] 132 [facility] [place] [id number] Rani Knott, RN 132 [facility] [place] [address] [phone] case management (UTC #1) Allergies Active Allergy Reactions Severity Noted Date Comments Lisinopril Edema face/lips/tongue High 04/05/2018 documented as of this encounter (statuses as of 06/11/2020) Medications Medication Sig Dispensed Refills Start Date End Date Status ciprofloxacin-dexam ethasone (CIPRODEX) 0.3-0.1 % otic suspensionIndicatio ns:Mixed hearing loss, unilateral,Chronic mastoiditis,Otitis media 4 DROPS RIGHT EAR ASNEEDED IF WATER GETS IN EAR 7.5 mL 3 01/29/2016 Active Additional Information Patient not taking. Reported on 05/03/2020 11:17 AM Blood Glucose Monitoring Suppl (SOMA BarcelonaTOUCH ULTRA SYSTEM) W/DEVICE KIT Use as directed 4 times a day as needed for Hyperglycemia (high sugar) or Hypoglycemia (low sugar). Use up to four times a day as directed 1 Kit 0 01/29/2016 Active SOMA BarcelonaTOUCH ULTRA BLUE STRP USE TO CHECK GLUCOSE [...] 100 Each 6 08/24/2017 Active Glucose Blood (SOMA BarcelonaTOUCH VERIO) STRP Use up to 4 times a day E11.9 300 Strip 3 08/24/2017 Active aspirin enteric coated 81 MG TBECIndications:Typ e 2 diabetes mellitus with diabetic neuropathy, unspecified (HCC) Take 1 Tab by mouth daily. 100 Tab 3 02/10/2018 Active Blood Glucose Monitoring Suppl (SOMA BarcelonaTOUCH VERIO) w/Device KITIndications:Type 2 diabetes mellitus with [...] as of this encounter (statuses as of 06/11/2020) Active Problems Problem Noted Date BPH with [...] as of this encounter (statuses as of 06/11/2020) Resolved Problems Problem Noted Date Resolved Date [...] as of this encounter (statuses as of 06/11/2020) Immunizations Name Administration Dates Next Due Pneumococcal [...] Telephone Encounter - Rani Knott RN - 06/11/2020 3:31 PM EDT [facility] #1 no answer documented in this encounter Plan of Treatment Upcoming Encounters Date Type Specialty Care Team Description 06/19/2020 Office Visit Family Medicine James Maria, 132 [facility] [place] [address] [phone] 07/11/2020 Office Visit Urology Fabby Nielsen, Chema Seay MD [address] [facility] [address] [place] [address] [phone] 08/23/2020 Office Visit Podiatry [facility] 132 [facility] [address] [place] [address] [phone] Health Maintenance Due Date Last Done Comments [...] Documents on File Type Date Recorded Patient Compliance Engineer Expl 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 Advanced Directive Advanced Directive Advanced Directive Advanced Directive Advanced Directive
--- OUTSIDE RECORDS SUMMARY | 2023-07-31 20:33 | External Medical Summary | Summary of Care ---
Author Name Unknown Organization [place] [address] Care Team Providers Care Spray Unit Feeder Name Role Phone James Maria Primary Care Provider Reason for Visit * Reason Comments Test Results UA Encounter Details Date Type Department Care Team Description 06/05/2020 Telephone Urology [facility] [address], [address] [place], [place] [address] Chema Sequeira Jr., MD 27 [facility] [address] [place] [id number] Test Results (UA) Allergies Active Allergy Reactions Severity Noted Date Comments Lisinopril Edema face/lips/tongue High 04/05/2018 documented as of this encounter (statuses as of 06/12/2020) Medications Medication Sig Dispensed Refills Start Date End Date Status ciprofloxacin-dexam ethasone (CIPRODEX) 0.3-0.1 % otic suspensionIndicatio ns:Mixed hearing loss, unilateral,Chronic mastoiditis,Otitis media 4 DROPS RIGHT EAR ASNEEDED IF WATER GETS IN EAR 7.5 mL 3 01/29/2016 Active Additional Information Patient not taking. Reported on 05/03/2020 11:17 AM Blood Glucose Monitoring Suppl (vChatterTOUCH ULTRA SYSTEM) W/DEVICE KIT Use as directed 4 times a day as needed for Hyperglycemia (high sugar) or Hypoglycemia (low sugar). Use up to four times a day as directed 1 Kit 0 01/29/2016 Active vChatterTOUCH ULTRA BLUE STRP USE TO CHECK GLUCOSE [...] 100 Each 6 08/24/2017 Active Glucose Blood (vChatterTOUCH VERIO) STRP Use up to 4 times a day E11.9 300 Strip 3 08/24/2017 Active aspirin enteric coated 81 MG TBECIndications:Typ e 2 diabetes mellitus with diabetic neuropathy, unspecified (HCC) Take 1 Tab by mouth daily. 100 Tab 3 02/10/2018 Active Blood Glucose Monitoring Suppl (vChatterTOUCH VERIO) w/Device KITIndications:Type 2 diabetes mellitus with [...] than 7.0% ([facility]) TAKE 1 TABLET BY MOUTH TWICE DAILY WITH MORNING AND EVENING MEALS 180 Tab 0 05/07/2020 Active tamsulosin (FLOMAX) 0.4 MG Capsule Take 1 capsule by mouth once daily 90 Cap 0 05/07/2020 Active documented as of this encounter (statuses as of 06/12/2020) Active Problems Problem Noted Date BPH with [...] as of this encounter (statuses as of 06/12/2020) Resolved Problems Problem Noted Date Resolved Date [...] as of this encounter (statuses as of 06/12/2020) Immunizations Name Administration Dates Next Due Pneumococcal [...] of Test : 06/01/2020 Location of Test: [place] Ordering Provider: Dr. Sequeira Callback Number: [phone] Patient has been made aware that the turnaround time for test results are typically as follows: Laboratory results = within 2 days Pathology results (biopsy results/PAP) = 1-2 weeks Radiology results = within 1 week COVID testing = 24-48 hours documented in this encounter Plan of Treatment Upcoming Encounters Date Type Specialty Care Team Description 06/19/2020 Office Visit Family Medicine James Maria DO [address] [place] [address] [phone] 07/11/2020 Office Visit Urology Chema Sequeira Jr., MD [address] [place] [address] [place] [address] [phone] 08/23/2020 Office Visit Podiatry [facility] [address] [place] [address] [phone] Scheduled Orders Name Type Priority Associated Diagnoses [...] on File Type Date Recorded Patient Senior Sales Executive Expl 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 Advanced Directive Advanced Directive Advanced Directive Advanced Directive Advanced Directive
--- OUTSIDE RECORDS SUMMARY | 2023-07-31 20:33 | External Medical Summary | Summary of Care ---
Author Name Unknown Organization [place] [address] Care Team Providers Care Novelties Sales Representative Name Role Phone James Maria Primary Care Provider Reason for Visit * Reason Comments Test Results UA Encounter Details Date Type Department Care Team Description 06/05/2020 Telephone Urology [facility] [address], [address] [place], [place] [address] Chema Sequeira Jr., MD 27 [facility] [address] [place] [id number] Test Results (UA) Allergies Active Allergy Reactions [...] 05/03/2020 11:17 AM Blood Glucose Monitoring Suppl (ShoutfitTOUCH ULTRA SYSTEM) W/DEVICE KIT Use as directed 4 times a day as needed for Hyperglycemia (high sugar) or Hypoglycemia (low sugar). 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 100 Tab 3 02/10/2018 Active Blood Glucose Monitoring Suppl (ShoutfitTOUCH VERIO) w/Device KITIndications:Type 2 diabetes mellitus with [...] A1c goal of less than 7.0% ([facility]) TAKE 1 TABLET BY MOUTH TWICE DAILY [...] of Test : 06/01/2020 Location of Test: [place] Ordering Provider: Dr. Sequeira Callback Number: [phone] Patient has been made aware that the [...] Medicine James Maria, [address] [place] [id number] 07/11/2020 Office Visit Urology Fabby Nielsen, Chema Seay MD [address] [address] [place] [address] [phone] 08/23/2020 Office Visit Podiatry [facility] [address] [place] [address] [phone] Scheduled Orders Name Type Priority Associated Diagnoses [...] Documents on File Type Date Recorded Patient Block Sawyer Expl 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 Advanced Directive Advanced Directive Advanced Directive Advanced Directive Advanced Directive
--- OUTSIDE RECORDS SUMMARY | 2023-07-31 20:33 | External Medical Summary | Summary of Care ---
Author Name Unknown Organization [place] [address] Care Team Providers Care Pressroom Foreman Name Role Phone James Maria Primary Care Provider Reason for Visit * Reason Comments Test Results UA Encounter Details Date Type Department Care Team Description 06/05/2020 Telephone Urology [facility] [address], [address] [place], [place] [address] Chema Sequeira Jr., MD 27 [facility] [address] [place] [id number] Test Results (UA) Allergies Active Allergy Reactions [...] 05/03/2020 11:17 AM Blood Glucose Monitoring Suppl (NallatechTOUCH ULTRA SYSTEM) W/DEVICE KIT Use as directed 4 times a day as needed for Hyperglycemia (high sugar) or Hypoglycemia (low sugar). 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 100 Tab 3 02/10/2018 Active Blood Glucose Monitoring Suppl (NallatechTOUCH VERIO) w/Device KITIndications:Type 2 diabetes mellitus with [...] goal of less than 7.0% ([facility]) TAKE 1 TABLET BY MOUTH TWICE DAILY [...] encounter Miscellaneous Notes * Telephone Encounter - Chema Sequeira Jr., [...] of Test : 06/01/2020 Location of Test: [place] Ordering Provider: Dr. Sequeira Callback Number: [phone] Patient has been made aware that the [...] James Maria DO [address] [place] [address] [phone] 07/11/2020 Office Visit Urology Fabby Nielsen, Chema Seay MD 27 [facility] [address] [place] [address] [phone] 08/23/2020 Office Visit Podiatry [facility] [address] [place] [address] [phone] Scheduled Orders Name Type Priority Associated Diagnoses [...] of less than 8.0% ([facility]) documented in this encounter Advance Directives Documents on File Type Date Recorded Patient Ultrasonic Solderer Expl 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 Advanced Directive Advanced Directive Advanced Directive Advanced Directive Advanced Directive
--- OUTSIDE RECORDS SUMMARY | 2023-07-31 20:33 | External Medical Summary | Summary of Care ---
Author Name Unknown Organization [facility] Address [facility] [place] [address] Care Team Providers Care Tare Man Name Role Phone Rylan Mariar Sophy DO Primary Care Provider Reason for Visit * Reason Comments Follow Up Encounter Details Date Type Department Care Team Description 05/07/2020 Telephone Interventional Pain Center, [facility] [address] [place] [address] CousinAvtar carmona DO [address] [place] [address] [phone] Follow Up Allergies Active Allergy Reactions Severity [...] 05/03/2020 11:17 AM Blood Glucose Monitoring Suppl (Kreatech DiagnosticsTOUCH ULTRA SYSTEM) W/DEVICE KIT Use as directed 4 times a day as needed for Hyperglycemia (high sugar) or Hypoglycemia (low sugar). 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 100 Tab 3 02/10/2018 Active Blood Glucose Monitoring Suppl (Attract[employer] VERIO) w/Device KITIndications:Type 2 diabetes mellitus with [...] A1c goal of less than 7.0% ([facility]) TAKE 1 TABLET BY MOUTH TWICE [...] call to Farhana with any questions at [phone]. * Telephone Encounter - Gabriela Ojeda LPN [...] Family Medicine James Maria, [address] [place] [address] [phone] 07/11/2020 Office Visit Urology Chema Sequeira Jr., MD [address] [address] [place] [address] 08/23/2020 Office Visit Podiatry Region, [facility] [address] [place] [address] [phone] Health Maintenance Due Date Last Done Comments [...] on File Type Date Recorded Patient Digital Marketing Executive Expl 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 Advanced Directive Advanced Directive Advanced Directive Advanced Directive Advanced Directive
--- OUTSIDE RECORDS SUMMARY | 2023-07-31 20:33 | External Medical Summary | Summary of Care ---
Author Name Unknown Organization [place] [address] Care Team Providers Care Department Mgr Name Role Phone James Maria Primary Care Provider Reason for Visit * Reason Comments Left Message UTC #2/3 -- due for 3 mo case mgmt assessment case management Encounter Details Date Type Department Care Team Description 06/20/2020 Hoop Riveting Machine Operator Telephone Care Coordination [address] [place], [place] [id number] Jane Arthur RN [address] [place] [address] [phone] Left Message (UTC #2/3 -- due for [...] 05/03/2020 11:17 AM Blood Glucose Monitoring Suppl (Beehive IndustriesUCH ULTRA SYSTEM) W/DEVICE KIT Use as directed [...] 100 Each 6 08/24/2017 Active Glucose Blood (TapShieldTOUCH VERIO) STRP Use up to 4 times a day E11.9 300 Strip 3 08/24/2017 Active aspirin enteric coated 81 MG TBECIndications:Type 2 diabetes mellitus with diabetic neuropathy, unspecified (HCC) Take 1 Tab by mouth daily. 100 Tab 3 02/10/2018 Active Blood Glucose Monitoring Suppl (TapShieldTOUCH VERIO) w/Device KITIndications:Type 2 diabetes mellitus with [...] but got mad at his pharmacist at [facility] and stop taking his diabetic medications [...] patient is noted in chart to be [place] no answer, LMTRC to my direct # or 800# UTC #2/3 Jane Arthur RN MSN [facility] Medical [place] Hoop Riveting Machine Operator documented in this encounter Plan of Treatment Upcoming Encounters Date Type Specialty Care Team Description 07/11/2020 Office Visit Urology Fabby Nielsen, Chema Seay MD [address] [address] [place] [id number] 08/23/2020 Office Visit Podiatry [facility] [address] [address] [phone] 12/25/2020 Office Visit Family Medicine James Maria DO [address] [address] [phone] Health Maintenance Due Date Last Done Comments [...] Documents on File Type Date Recorded Patient Program Director/Music Director Expl 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 Advanced Directive Advanced Directive Advanced Directive Advanced Directive Advanced Directive Advanced Directive
--- OUTSIDE RECORDS SUMMARY | 2023-07-31 20:33 | External Medical Summary | Summary of Care ---
Author Name Unknown Organization [facility] Address [place] [address] Care Team Providers Care Retail Pharmacy Manager Name Role Phone James Maria DO Primary Care Provider Reason for Visit * Reason Comments transfer of records FOI to Farhana delgado Encounter Details Date Type Department Care Team Description 06/01/2020 Telephone Family Practice [facility] [address] [facility] [place] [address] James Maria DO [address] [facility] [place] [address] [phone] transfer of records (FOI to Farhana delgado) Allergies Active Allergy Reactions Severity Noted Date Comments Lisinopril Edema face/lips/tongue High 04/05/2018 documented as of this encounter (statuses as of 06/01/2020) Medications Medication Sig Dispensed Refills Start Date End Date Status ciprofloxacin-dexam ethasone (CIPRODEX) 0.3-0.1 % otic suspensionIndicatio ns:Mixed hearing loss, unilateral,Chronic mastoiditis,Otitis media 4 DROPS RIGHT EAR ASNEEDED IF WATER GETS IN EAR 7.5 mL 3 01/29/2016 Active Additional Information Patient not taking. Reported on 05/03/2020 11:17 AM Blood Glucose Monitoring Suppl (JobbrTOUCH ULTRA SYSTEM) W/DEVICE KIT Use as directed [...] goal of less than 7.0% ([facility]) TAKE 1 TABLET BY MOUTH TWICE DAILY WITH MORNING AND EVENING MEALS 180 Tab 0 05/07/2020 Active tamsulosin (FLOMAX) 0.4 MG Capsule Take 1 capsule by mouth once daily 90 Cap 0 05/07/2020 Active documented as of this encounter (statuses as of 06/01/2020) Active Problems Problem Noted Date BPH with [...] as of this encounter (statuses as of 06/01/2020) Resolved Problems Problem Noted Date Resolved Date [...] as of this encounter (statuses as of 06/01/2020) Immunizations Name Administration Dates Next Due Pneumococcal [...] encounter Miscellaneous Notes * Telephone Encounter - Sarah Reis OSA - 06/01/2020 3:03 PM EDT Patient signed a CHRISTOPHER for , Farhana to be able to exchange/give all medical and billing information. Sent to [facility] for record. documented in this encounter Plan of Treatment Upcoming Encounters Date Type Specialty Care Team Description 07/11/2020 Office Visit Urology Fabby Nielsen, Chema Seay MD [address] [address] [place] [address] [phone] 08/23/2020 Office Visit Podiatry Region[facility] [address] [facility] [place] [address] [phone] Health Maintenance Due Date Last Done Comments [...] Documents on File Type Date Recorded Patient Lay Out Carpenter Expl 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 Advanced Directive Advanced Directive Advanced Directive Advanced Directive Advanced Directive
--- OUTSIDE RECORDS SUMMARY | 2023-07-31 20:33 | External Medical Summary | Summary of Care ---
Author Name Unknown Organization [place] [address] Care Team Providers Care Supervisor Channel Process Name Role Phone James Maria Primary Care Provider Reason for Visit * Reason Comments Test Results UA Encounter Details Date Type Department Care Team Description 06/05/2020 Telephone Urology [facility] [address], [address] [place], [place] [id number] Chema Sequeira Jr., MD [address] [facility] [address] [place] [id number] Test Results (UA) Allergies Active Allergy Reactions [...] 05/03/2020 11:17 AM Blood Glucose Monitoring Suppl ([employer] WarpTOUCH ULTRA SYSTEM) W/DEVICE KIT Use as directed 4 times a day as needed for Hyperglycemia (high sugar) or Hypoglycemia (low sugar). Use up to four times a day as directed 1 Kit 0 01/29/2016 Active [employer] WarpTOUCH ULTRA BLUE STRP USE TO CHECK GLUCOSE [...] 100 Each 6 08/24/2017 Active Glucose Blood ([employer] WarpTOUCH VERIO) STRP Use up to 4 times a day E11.9 300 Strip 3 08/24/2017 Active aspirin enteric coated 81 MG TBECIndications:Typ e 2 diabetes mellitus with diabetic neuropathy, unspecified (HCC) Take 1 Tab by mouth daily. 100 Tab 3 02/10/2018 Active Blood Glucose Monitoring Suppl ([employer] WarpTOUCH VERIO) w/Device KITIndications:Type 2 diabetes mellitus with [...] 7.0% ([facility]) TAKE 1 TABLET BY MOUTH TWICE DAILY [...] poorly controlled sugar. * Telephone Encounter - lCarissa Basurto OSA - 06/05/2020 10:59 AM EDT Who is Requesting Test Results: Farhana- patient's Primary Care Provider : Dr. Maria Tests Results Requested : ROUTINE URINALYSIS Date of Test : 06/01/2020 Location of Test: [place] Ordering Provider: Dr. Sequeira Callback Number: [phone] Patient has been made aware that the [...] James Maria DO [address] [place] [address] [phone] 07/11/2020 Office Visit Urology Fabby Nielsen, Chema Seay MD [address] [facility] [address] [place] [address] [phone] 08/23/2020 Office Visit Podiatry [facility] [address] [place] [address] [phone] Scheduled Orders Name Type Priority Associated Diagnoses [...] 8.0% ([facility]) documented in this encounter Advance Directives Documents on File Type Date Recorded Patient Passenger Brakeman Expl 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 Advanced Directive Advanced Directive Advanced Directive Advanced Directive Advanced Directive
--- OUTSIDE RECORDS SUMMARY | 2023-07-31 20:34 | External Medical Summary | Summary of Care ---
Author Name Unknown Organization [place] [address] Care Team Providers Care Registered Midwife Name Role Phone Mejia Maria DO Primary Care Provider Reason for Visit * Reason Comments NEW PATIENT * Evaluate & Treat - Unlimited Visits (Within 10 days (routine)) Status Reason Specialty Diagnoses / Procedures Referred By Contact Referred To Contact Authorized Specialty Services Required Urology Diagnoses Dysuria Mejia Maria DO [address] [facility] [place] [address] Encounter Details Date Type Department Care Team Description 05/29/2020 Office Visit Urology [facility] [address], [address] [place] [address] Chema Sequeira Jr., MD 27 [facility] [address] [place] [id number] Incomplete emptying of bladder* Allergies Active Allergy Reactions Severity Noted Date Comments Lisinopril Edema face/lips/tongue High 04/05/2018 documented as of this encounter (statuses as of 05/29/2020) Medications Medication Sig Dispensed Refills Start Date End Date Status ciprofloxacin-dexam ethasone (CIPRODEX) 0.3-0.1 % otic suspensionIndicatio ns:Mixed hearing loss, unilateral,Chronic mastoiditis,Otitis media 4 DROPS RIGHT EAR ASNEEDED IF WATER GETS IN EAR 7.5 mL 3 01/29/2016 Active Additional Information Patient not taking. Reported on 05/03/2020 11:17 AM Blood Glucose Monitoring Suppl (AltheaDxTOUCH ULTRA SYSTEM) W/DEVICE KIT Use as directed [...] goal of less than 7.0% ([facility]) TAKE 1 TABLET BY MOUTH TWICE DAILY WITH MORNING AND EVENING MEALS 180 Tab 0 05/07/2020 Active tamsulosin (FLOMAX) 0.4 MG Capsule Take 1 capsule by mouth once daily 90 Cap 0 05/07/2020 Active documented as of this encounter (statuses as of 05/29/2020) Active Problems Problem Noted Date BPH with [...] as of this encounter (statuses as of 05/29/2020) Resolved Problems Problem Noted Date Resolved Date [...] as of this encounter (statuses as of 05/29/2020) Immunizations Name Administration Dates Next Due Pneumococcal [...] have Coronavirus / COVID-19? No / Unsure 05/29/2020 3:20 PM EDT documented as of this encounter Last Filed Vital Signs Vital Sign Reading Time Taken Comments Blood Pressure - - Pulse - - Temperature 36.3 C (97.3 F) 05/29/2020 3:30 PM ED T Respiratory Rate - - Oxygen Saturation - - Inhaled Oxygen Concentration - - Weight - - Height - - Body Mass Index - - documented in this encounter Progress Notes * Fabby Nielsen, Chema Seay MD - 05/29/2020 3:33 PM EDT [id number] [place]: [place] [address] [phone] Selvin Sebastian is a 74 year old male, who presents in referral for evaluation of voiding problems.He sees pain management in the past and has been on Flomax for years but not sure why. PSA Results: PSA(ng/mL) Stephie Dt/Tm Resulted Value Status 03/13/20 9:26A 03/13/20 0.37 FINAL PSA SCREENING(ng/mL) Stephie Dt/Tm Resulted Value Status 09/10/10 2:37P 09/11/10 1.21 FINAL 11/01/08 10:02A 11/01/08 0.50 FINAL Recent renal ultrasound showed FINDINGS Right Kidney: Normal size and echotexture. The right kidney measures 11.9 cmx4.6 cmx5.5 cm. No significant collecting system dilatation or stones evident. Left Kidney: Normal size and echotexture. The left kidney measures 11.2 cmx6.0 cmx4.1 cm. No significant collecting system dilatation or stones evident. Bladder: Bilateral ureteral jets are noted. Prevoid urinary bladder volume is 372 mL. Postvoid urinary bladder volume is 146 mL. Current Outpatient Medications Medication Sig Dispense Refill atorvaSTATin (LIPITOR) 40 MG Tablet Take 1 tablet by mouth once daily 90 Tab 0 MetFORMIN (GLUCOPHAGE) 1000 MG Tablet TAKE 1 TABLET BY MOUTH TWICE DAILY WITH MORNING AND EVENING MEALS 180 Tab 0 tamsulosin (FLOMAX) 0.4 MG Capsule Take 1 capsule by mouth once daily 90 Cap 0 amLODIPine (NORVASC) 5 MG Tablet Take 1 tablet by mouth once daily 90 Tab 3 Meloxicam 15 MG Tablet Take 1 Tab by mouth daily. 90 Tab 1 Meloxicam (MOBIC) 7.5 MG Tablet Take 1 Tab by mouth daily. for pain. 30 Tab 11 cyclobenzaprine (FLEXERIL) 5 MG Tablet Take 1 Tab by mouth 3 times a day as needed for Muscle spasms. (Patient not taking: Reported on 05/03/2020) 30 Tab 0 insulin isophane human (NOVOLIN N RELION) 100 UNIT/ML injection Inject 35 Units under the skin at bedtime. 4 Vial 5 insulin REGULAR human (NOVOLIN R RELION) 100 UNIT/ML injection Inject 5 Units under the skin three times a day before meals. 4 Vial 3 zoster vac recomb adjuvanted (SHINGRIX) 50 MCG/0.5ML injection Inject 0.5 mL into a large muscle now and repeat dose in 60 to 180 days 1 Each 1 Insulin Syringe-Needle U-100 (RELION INSULIN SYRINGE) 30G X 5/16" 0.3 ML MISC Use up to 4 x a day for insulin dosing E11.9 1 Box Dosing Unit 3 NOVOLOG FLEXPEN 100 UNIT/ML SOPN INJECT 5 UNITS SUBCUTANEOUSLY THREE TIMES DAILY WITH MEALS 15 mL 3 Blood Glucose Monitoring Suppl (AltheaDxTOUCH VERIO) w/Device KIT Use as directed. Recommend [...] 100 Strip 0 Blood Glucose Monitoring Suppl (AltheaDxTOUCH ULTRA SYSTEM) W/DEVICE KIT Use as directed [...] allergies indicates: Allergen Reactions Lisinopril Edema face/lips/tongue Social History: Social History Tobacco Use Smoking status: Former Smoker Last attempt to quit: 11/02/1980 Years since quittin.5 Smokeless tobacco: Never Used Substance Use Topics Alcohol use: Yes Alcohol/week: 0.0 standard drinks Comment: As of 12.19.2006, the last noted alcohol intake was 1 ounces. Vaping/E-Cigarette Use Vaping/E-Cigarette Substances Vaping/E-Cigarette Devices Past Surgical History: Procedure Laterality Date COLONOSCOPY 11/05 clear - repeat 10 y COLONOSCOPY, DIAGNOSTIC (RECTUM) 12/10/2015 diverticulosis, repeat 10 yrs/COLONOSCOPY FLEXIBLE PROXIMAL DIAGNOSTIC performed by Agustin Saravia MD at ENDOSCOPY [facility] FOOT/TOE SURGERY NEC 11/14 L foot deformity L-/S-SPINE PARAVERTEBRAL FACET INJ,1 LEVEL 05/03/2020 L-/S-SPINE PARAVERTEBRAL FACET INJ, 1 LEVEL performed by Avtar Merchant DO at OR [facility] MASTOID SURGERY REVISION/APICECTOMY age 18 [facility]ROS[facility] SURGERY 01/07 spur removed Patient Active Problem List Diagnosis Code Mixed conductive and sensorineural hearing loss of right ear with restricted hearing of left ear H90.A31 Type 2 diabetes mellitus with hemoglobin A1c goal of less than 8.0% ([facility]) E11.9 Dyslipidemia E78.5 HTN, goal below 130/80 I10 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, bilateral M21.961, M21.962 Type 2 diabetes mellitus with polyneuropathy ([facility]) E11.42 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, 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, 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 Past Surgical History: no changes Past Medical History: no changes Patient's Family History: no changes ROS EXAM: No chest pain, No shortness of breath, No dyspnea on exertion, No orthopnea, No paroxysmal nocturnal dyspnea, No edema, No palpitations and No syncope ROS EXAM: No abdominal pain, No change in bowel habits, No significant heartburn, No significant change in appetite, No nausea, vomiting, diarrhea, or constipation, No hematemesis, No blood in stoolsor black tarry stools, No abdominal bloating or early satiety and No dysphagia ROS EXAM: Normal balance, No headaches, No seizures and No weakness ROS EXAM: Remainder of ROS Negative GENERAL EXAM: Alert and oriented x3 and no acute distress ABDOMEN: negative, Abdomen soft, non-tender. BS normal, No masses, organomegaly, hernia RECTAL EXAM: normal seminal vesicles, no rectal masses, prostate 30 gm benign. GENITAL EXAM: MALE Testes Descended , Testes W/O Lesions, Penis W/O Lesions, Penis Circumcised and Scrotum Normal Impression/Plan: He has voiding difficulties which could be related to back problems poorly controlled sugars or unrecognized urinary tract problems. His PSA is normal and we will do a urine study. The ultrasound rules out blockage but shows elevated residuals common in diabetes. Chema Sequeira Jr, MD 3:33 PM 05/29/2020 documented in this encounter Nursing Notes * Josephine Brewer [place], WHIP OPERATOR - 05/29/2020 3:29 PM EDT Pt was having trouble urinating but is doing better now. He is taking flomax and has been for years. He is here today with his who has to write everything on a white board for the patient. She says he cant hear. He is saying he has no c/o. He says he has no idea why he is here. PSA Results: PSA(ng/mL) Stephie Culver/Samy Resulted Value Status 03/13/20 9:26A 03/13/20 0.37 FINAL PSA SCREENING(ng/mL) Stephie Culver/Samy Resulted Value Status 09/10/10 2:37P 09/11/10 1.21 FINAL 11/01/08 10:02A 11/01/08 0.50 FINAL documented in this encounter Plan of Treatment Upcoming Encounters Date Type Specialty Care Team Description 07/11/2020 Office Visit Urology Fabby Nielsen, Chema Seay MD [address] [place] [address] [phone] 08/23/2020 Office Visit Podiatry [facility] [address] [facility] [place] [address] [phone] Scheduled Orders Name Type Priority Associated Diagnoses Orde r Schedule ROUTINE URINALYSIS Lab Routine Incomplete emptying of bladder Expected: 05/29/2020 (Approximate), Expires: 08/29/2020 Health Maintenance Due Date Last Done Comments [...] emptying of bladder- Primary Incomplete bladder emptying documented in this encounter Advance Directives Documents on File Type Date Recorded Patient Director Marketing Analytics Expl 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 Advanced Directive Advanced Directive Advanced Directive Advanced Directive
--- OUTSIDE RECORDS SUMMARY | 2023-07-31 20:34 | External Medical Summary | Summary of Care ---
Author Name Unknown Organization [place] [address] Care Team Providers Care Service Team Leader Name Role Phone James Maria DO Primary Care Provider Reason for Referral * Evaluate & Treat - Unlimited Visits (Within 10 days (routine)) Status Reason Specialty Diagnoses / Procedures Referred By Contact Referred To Contact Authorized Specialty Services Required Urology Diagnoses Dysuria James Maria DO [address] [place] [address] Reason for Visit * Reason Comments Advice Encounter Details Date Type Department Care Team Description 03/14/2020 Telephone Family Practice [facility] [address] [address] James Maria DO [address] [address] [phone] Advice Allergies Active Allergy Reactions Severity Noted Date Comments Lisinopril Edema face/lips/tongue High 04/05/2018 documented as of this encounter (statuses as of 03/15/2020) Medications Medication Sig Dispensed Refills Start Date End Date Status ciprofloxacin-dexam ethasone (CIPRODEX) 0.3-0.1 % otic suspensionIndicatio ns:Mixed hearing loss, unilateral,Chronic mastoiditis,Otitis media 4 DROPS RIGHT EAR ASNEEDED IF WATER GETS IN EAR 7.5 mL 3 01/29/2016 Active Blood Glucose Monitoring Suppl ([email or web address] ULTRA SYSTEM) W/DEVICE KIT Use as directed [...] evening meal. 1 Kit 0 05/12/2018 Active amLODIPine (NORVASC) 5 MG Tablet Take 1 Tab by mouth daily. 90 Tab 3 01/26/2019 Active atorvaSTATin (LIPITOR) 40 MG Tablet Take 1 Tab by mouth daily. 90 Tab 3 01/26/2019 Active MetFORMIN (GLUCOPHAGE) 1000 MG TabletIndications:T ype 2 diabetes mellitus with hemoglobin A1c goal of less than 7.0% (HCC) TAKE ONE TABLET BY MOUTH TWICE DAILY WITH MORNING AND EVENING MEALS 180 Tab 3 01/26/2019 Active tamsulosin (FLOMAX) 0.4 MG Capsule Take 1 Cap by mouth daily. 90 Cap 3 01/26/2019 Active NOVOLOG FLEXPEN 100 UNIT/ML SOPNIndications:Typ e [...] Muscle spasms. 30 Tab 0 11/21/2019 Active insulin isophane human (NOVOLIN N RELION) 100 UNIT/ML injectionIndication s:Type 2 diabetes mellitus with polyneuropathy (HCC) Inject 35 Units under the skin at bedtime. 4 Vial 5 11/21/2019 Active insulin REGULAR human (NOVOLIN R RELION) 100 UNIT/ML injectionIndication s:Type 2 diabetes mellitus with polyneuropathy ([facility]) Inject 5 Units under the skin three [...] mouth daily. 90 Tab 1 01/18/2020 Active documented as of this encounter (statuses as of 03/15/2020) Active Problems Problem Noted Date BPH with [...] as of this encounter (statuses as of 03/15/2020) Resolved Problems Problem Noted Date Resolved Date [...] as of this encounter (statuses as of 03/15/2020) Immunizations Name Administration Dates Next Due Pneumococcal [...] have Coronavirus / COVID-19? No / Unsure 03/13/2020 8:24 AM EDT documented as of this encounter Miscellaneous Notes * Telephone Encounter - Bee Soria OSA - 03/15/2020 2:21 PM EDT LMOM to see if patient would like to go to [facility] or [place] * Telephone Encounter - Cate Maria LPN - 03/15/2020 9:45 AM EDT Pt aware of all information. * Telephone Encounter - Sujit Yañez MD - 03/15/2020 9:33 AM EDT Agree with Dr. Maria. No further input from me. * Telephone Encounter - James Maria DO - 03/15/2020 9:08 AM EDT His PSA was normal Recommend UA as well (order placed) F/u with urology if needed for the stream difficulty. Will also see if Dr. Yañez has any other input from his visit with patient. * Telephone Encounter - Petar Méndez OSA - 03/14/2020 3:56 PM EDT Pt calling stating he received results from his ultrasound and his kidneys are normal. Pt's states he still has increased kidney pain.and it radiates to his penis. Pt states he is having trouble urinating - "it doesn't flow like it used to." Pt has a little bit of burning with urination. Pt has urinary frequency and hesitates when he has to go. Pt would like advice on what to do. Please advise pt at [phone] (this is his 's phone number. Pt states he doesn't hear well.) documented in this encounter Plan of Treatment Upcoming Encounters Date Type Specialty Care Team Description 04/03/2020 Office Visit Pain Management Avtar Merchant DO [address] [place] [address] [phone] Scheduled Orders Name Type Priority Associated Diagnoses Orde r Schedule URINE W/ MICROSCOPIC Lab Routine Dysuria Expected: 03/15/2020 (Approximate), Expires: 03/15/2021 Scheduled Referrals Name Type Priority Associated Diagnoses Orde r Schedule UROLOGY REFERRAL OP Referral Within 10 da ys (routine) Dysuria Ordered: 03/15/2020 Health Maintenance Due Date Last Done Comments *NEPHROLOGY REFERRAL DUE TO RESISTANT HTN 03/15/2020 DIABETES-HGBA1C EVERY 6 MONTHS 09/13/2020 03/13/2020, 11/16/2019, 12/13/2018, Additional history exists DIABETES-FOOT EXAM 10/13/2020 10/13/2019, 0 06/07/2018, 05/13/2017, Additional history exists Yearly B-12 11/16/2020 11/16/2019, 01/11/2018 DIABETES-EYE EXAM 12/15/2020 12/15/2019, , 02/28/2013, Additional history exists DIABETES-URINE MICROALBUMIN EVERY 12 MONTHS 03/13/2021 03/13/2020, 12/13/2018, 01/11/2018, Additional history exists DTaP,Tdap,and Td Vaccines (2 - Td) 10/21/2021 10/21/2011, 11/09/2003 Pneumococcal Vaccine: 65+ Years Completed 12/24/2015, 07/23/2011 Influenza Vaccine (FLU shot) Completed , 10/21/2018, 09/10/2017, Additional history exists Zoster Vaccines Completed 03/13/2020, 11/03, 08/03/2012 MENINGOCOCCAL (MENACTRA/MENVEO) Aged Out No longer eligible based on patient's age to complete this topic documented as of this encounter Implants Not on filedocumented as of this encounter Visit Diagnoses Diagnosis Dysuria- Primary documented in this encounter Advance Directives Documents on File Type Date Recorded Patient Combination Window Installer Expl anation Advanced Directive service a hi default Advanced Directive Advanced Directive Advanced Directive Advanced Directive Advanced Directive Advanced Directive
--- OUTSIDE RECORDS SUMMARY | 2023-07-31 20:34 | External Medical Summary | Summary of Care ---
Author Name Unknown Organization [place] [address] Care Team Providers Care On Site Manager Name Role Phone Rylan Mariar Sophy Primary Care Provider Reason for Visit * Reason Comments Follow Up Encounter Details Date Type Department Care Team Description 05/07/2020 Telephone Interventional Pain Center, [facility] [address] [place] [address] CousinAvtar carmona DO [address] [place] [address] [phone] Follow Up Allergies Active Allergy Reactions Severity Noted Date Comments Lisinopril Edema face/lips/tongue High 04/05/2018 documented as of this encounter (statuses as of 05/07/2020) Medications Medication Sig Dispensed Refills Start Date End Date Status ciprofloxacin-dexam ethasone (CIPRODEX) 0.3-0.1 % otic suspensionIndicatio ns:Mixed hearing loss, unilateral,Chronic mastoiditis,Otitis media 4 DROPS RIGHT EAR ASNEEDED IF WATER GETS IN EAR 7.5 mL 3 01/29/2016 Active Additional Information Patient not taking. Reported on 05/03/2020 11:17 AM Blood Glucose Monitoring Suppl (INTTRATOUCH ULTRA SYSTEM) W/DEVICE KIT Use as directed 4 times a day as needed for Hyperglycemia (high sugar) or Hypoglycemia (low sugar). Use up to four times a day as directed 1 Kit 0 01/29/2016 Active Inimex PharmaceuticalsUCH ULTRA BLUE STRP USE TO CHECK GLUCOSE [...] 100 Each 6 08/24/2017 Active Glucose Blood (INTTRATOUCH VERIO) STRP Use up to 4 times a day E11.9 300 Strip 3 08/24/2017 Active aspirin enteric coated 81 MG TBECIndications:Typ e 2 diabetes mellitus with diabetic neuropathy, unspecified (HCC) Take 1 Tab by mouth daily. 100 Tab 3 02/10/2018 Active Blood Glucose Monitoring Suppl (Inimex PharmaceuticalsUCH VERIO) w/Device KITIndications:Type 2 diabetes mellitus with [...] A1c goal of less than 7.0% ([facility]) TAKE 1 TABLET BY MOUTH TWICE DAILY WITH MORNING AND EVENING MEALS 180 Tab 0 05/07/2020 Active tamsulosin (FLOMAX) 0.4 MG Capsule Take 1 capsule by mouth once daily 90 Cap 0 05/07/2020 Active documented as of this encounter (statuses as of 05/07/2020) Active Problems Problem Noted Date BPH with [...] as of this encounter (statuses as of 05/07/2020) Resolved Problems Problem Noted Date Resolved Date [...] as of this encounter (statuses as of 05/07/2020) Immunizations Name Administration Dates Next Due Pneumococcal [...] have Coronavirus / COVID-19? No / Unsure 05/03/2020 6:59 PM EDT documented as of this encounter Miscellaneous Notes * Telephone Encounter - Gabriela Ojeda LPN - 05/07/2020 3:07 PM EDT called-stated pain is gone for the most part, just stiff and sore. Advised it's probably from the injection and should resolve on it's own. Advised to call back with report in 3wks as per discharge orders. documented in this encounter Plan of Treatment Upcoming Encounters Date Type Specialty Care Team Description 05/09/2020 Office Visit Podiatry Kylie Burroughs, DPM [address] [place] [address] [phone] 05/29/2020 Office Visit Urology Fabby Nielsen, Chema Seay [facility] [address] [facility] [address] [place] [address] [phone] Health Maintenance Due Date Last Done Comments *NEPHROLOGY REFERRAL DUE TO RESISTANT HTN 03/15/2020 Influenza Vaccine (FLU shot) (#1) 2020 08/22/2019, [...] Documents on File Type Date Recorded Patient Law Librarian Expl anation Advanced Directive service a ih default Advanced Directive Advanced Directive Advanced Directive Advanced Directive Advanced Directive Advanced Directive Advanced Directive Advanced Directive Advanced Directive
--- OUTSIDE RECORDS SUMMARY | 2023-07-31 20:34 | External Medical Summary | Summary of Care ---
Author Name Unknown Organization [place] [address] Care Team Providers Care Assistant Customer Service Manager Name Role Phone Yariel Mariaalessandro Dyefiliberto Primary Care Provider Reason for Visit * Reason Comments Diabetic Foot Care Encounter Details Date Type Department Care Team Description 05/09/2020 Office Visit Podiatry [facility] [address] [place] [address] Kylie Burroughs, DPMarga [address] [facility] [address] Onychomycosis*; Corns and callosities; DM type 2 with diabetic peripheral neuropathy (HCC); History of foot surgery Allergies Active Allergy Reactions Severity Noted Date Comments Lisinopril Edema face/lips/tongue High 04/05/2018 documented as of this encounter (statuses as of 05/09/2020) Medications Medication Sig Dispensed Refills Start Date End Date Status ciprofloxacin-dexam ethasone (CIPRODEX) 0.3-0.1 % otic suspensionIndicatio ns:Mixed hearing loss, unilateral,Chronic mastoiditis,Otitis media 4 DROPS RIGHT EAR ASNEEDED IF WATER GETS IN EAR 7.5 mL 3 01/29/2016 Active Additional Information Patient not taking. Reported on 05/03/2020 11:17 AM Blood Glucose Monitoring Suppl (CalcivisUCH ULTRA SYSTEM) W/DEVICE KIT Use as directed [...] goal of less than 7.0% ([facility]) TAKE 1 TABLET BY MOUTH TWICE DAILY WITH MORNING AND EVENING MEALS 180 Tab 0 05/07/2020 Active tamsulosin (FLOMAX) 0.4 MG Capsule Take 1 capsule by mouth once daily 90 Cap 0 05/07/2020 Active documented as of this encounter (statuses as of 05/09/2020) Active Problems Problem Noted Date BPH with [...] as of this encounter (statuses as of 05/09/2020) Resolved Problems Problem Noted Date Resolved Date [...] as of this encounter (statuses as of 05/09/2020) Immunizations Name Administration Dates Next Due Pneumococcal [...] have Coronavirus / COVID-19? No / Unsure 05/09/2020 9:14 AM EDT documented as of this encounter Last Filed Vital Signs Vital Sign Reading Time Taken Comments Blood Pressure - - Pulse - - Temperature 36.3 C (97.3 F) 05/09/2020 9:27 AM ED T Respiratory Rate - - Oxygen Saturation - - Inhaled Oxygen Concentration - - Weight - - Height - - Body Mass Index - - documented in this encounter Progress Notes * Kylie Burroughs DPM - 05/09/2020 10:13 AM EDT Podiatry Established Note [facility] Name: Selvin Sebastian : 1945 Date: 05/09/2020 REASON FOR VISIT: diabetic foot care SUBJECTIVE: This patient is a 74 year old male who presents today accompanied by his . He is very hard of hearing and she helps communicate with white board. He denies pain or any issues. FBS notreported. He does have neuropathy. His left third toe is cocked upwards. He had surgery in the pastby another provider. Past Medical History: Diagnosis Date Allergic rhinitis [...] and No itching FOCUSED PODIATRIC EXAM: Vitals: Filed Vitals: 05/09/20 0927 Temp: 36.3 C (97.3 F) General: Normal mood and affect. No apparent [...] dorsal aspect of the left 4th toe. DIAGNOSTIC STUDIES: Hemoglobin AIC Results: HEMOGLOBIN, A1C(%) Stephie Dt/Tm Resulted Value Status 03/13/20 9:26A 03/13/20 7.4* FINAL 11/16/19 8:37A 11/16/19 11.5* FINAL 12/13/18 3:03P 12/14/18 14.3* FINAL ASSESSMENT: 1. Onychomycosis TA T1 T2 T3 [...] used to remove all incurvating edges. A print cutter wasused to trim nail to appropriate length. An electrical bur was used in a side to side motion to reduce nail thickness, hypertrophic growth, and to smooth all edges. Patient tolerated well. They noted improvement following procedure. Follow up: 3 mo Kylie Burroughs DPM documented in this encounter Nursing Notes * Celeste Huber LPN - 05/09/2020 9:24 AM EDT Pt presents with for diabetic foot care, states no pain in feet. Did not test BSG this morning. 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 Pt's uses a small dry erase board to communicate with pt. jono JIMENEZ documented in this encounter Plan of Treatment Upcoming Encounters Date Type Specialty Care Team Description 05/29/2020 Office Visit Urology Fabby Nielsen, Chema Seay MD [address] [address] 08/23/2020 Office Visit Podiatry Region, [facility] The Dean [address] [place] [address] [phone] Scheduled Orders Name Type Priority Associated Diagnoses Orde r Schedule PARING/CUT BENIGN HYPERKERATOTIC LESION, ONE Procedures Routine Corns and callosities DM type 2 with diabetic peripheral neuropathy (HCC) History of foot surgery Ordered: 05/09/2020 DEBRIDEMENT OF NAILS 6 OR MORE Procedures Routine Onychomycosis DM type 2 with diabetic peripheral neuropathy (HCC) History of foot surgery Ordered: 05/09/2020 Health Maintenance Due Date Last Done Comments [...] Documents on File Type Date Recorded Patient Nursing Manager Expl 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 Advanced Directive Advanced Directive Advanced Directive
--- OUTSIDE RECORDS SUMMARY | 2023-07-31 20:34 | External Medical Summary | Summary of Care ---
Author Name Unknown Organization [place] [address] Care Team Providers Care Yarn Mercerizer Operator Helper Name Role Phone James Martinez DO Primary Care Provider Reason for Referral * Evaluate & Treat - Unlimited Visits (Within 10 days (routine)) Status Reason Specialty Diagnoses / Procedures Referred By Contact Referred To Contact Authorized Specialty Services Required Urology Diagnoses Dysuria James Martinez DO [address] [place] [address] Reason for Visit * Reason Comments Advice Encounter Details Date Type Department Care Team Description 03/14/2020 Telephone Family Practice [facility] [address] [address] James Martinez DO [address] [place] [address] [phone] Advice Allergies Active Allergy Reactions Severity Noted Date Comments Lisinopril Edema face/lips/tongue High 04/05/2018 documented as of this encounter (statuses as of 04/03/2020) Medications Medication Sig Dispensed Refills Start Date End Date Status ciprofloxacin-dexam ethasone (CIPRODEX) 0.3-0.1 % otic suspensionIndicatio ns:Mixed hearing loss, unilateral,Chronic mastoiditis,Otitis media 4 DROPS RIGHT EAR ASNEEDED IF WATER GETS IN EAR 7.5 mL 3 01/29/2016 Active Blood Glucose Monitoring Suppl (Recorrido ULTRA SYSTEM) W/DEVICE KIT Use as directed [...] injectionIndication s:Type 2 diabetes mellitus with polyneuropathy ([facility]) Inject 5 Units under the skin three [...] as of this encounter (statuses as of 04/03/2020) Active Problems Problem Noted Date BPH with [...] as of this encounter (statuses as of 04/03/2020) Resolved Problems Problem Noted Date Resolved Date [...] as of this encounter (statuses as of 04/03/2020) Immunizations Name Administration Dates Next Due Pneumococcal [...] have Coronavirus / COVID-19? No / Unsure 04/03/2020 10:00 AM EDT documented as of this encounter Miscellaneous Notes * Telephone Encounter - Carolyn Delarosa OSA - 04/03/2020 11:05 AM EDT Patient's spouse calling to let Dr. Pelayo know that they have changed their mind about going to [facility] for Urology. Patient would now like to be seen in [place]. Patient is scheduled to see Dr. Sequeira on 05/29/20 in [place]. * Telephone Encounter - Bee Soria OSA - 03/20/2020 12:37 PM EDT Referral faxed * Telephone Encounter - Angélica Olivas OSA - 03/19/2020 2:18 PM EDT Pts calling, they spoke with Urology and the pt has decided to go with [facility]. They areasking for the referral to be faxed through so [facility] can get in contact with them about setting up an appointment. Thank you. * Telephone Encounter - Bee Soria OSA - 03/19/2020 10:55 AM EDT LMOM and letter sent 03/19/20 * Telephone Encounter - Bee Soria OSA - 03/15/2020 2:21 PM EDT LMOM to see if patient would like to go to [facility] or [place] * Telephone Encounter - Cate Martinez LPN - 03/15/2020 9:45 AM EDT Pt aware of all information. * Telephone Encounter - Sujit Yañez MD - 03/15/2020 9:33 AM EDT Agree with Dr. Martinez. No further input from me. * Telephone Encounter - James Martinez DO - 03/15/2020 9:08 AM EDT His [...] what to do. Please advise pt at [phone] (this is his 's phone number. Pt states he doesn't hear well.) documented in this encounter Plan of Treatment Upcoming Encounters Date Type Specialty Care Team Description 04/10/2020 Imaging Radiology 05/29/2020 Office Visit Urology Fabyb Nielsen, Chema Seay MD [address] [place] [address] [place] [address] Scheduled Orders Name Type Priority Associated Diagnoses [...] on File Type Date Recorded Patient Supervisor Malt House Expl 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
--- OUTSIDE RECORDS SUMMARY | 2023-07-31 20:34 | External Medical Summary | Summary of Care ---
Author Name Unknown Organization [place] [address] Care Team Providers Care Cloud Physicist Name Role Phone James Maria DO Primary Care Provider Reason for Referral * Evaluate & Treat - Unlimited Visits (Within 10 days (routine)) Status Reason Specialty Diagnoses / Procedures Referred By Contact Referred To Contact Authorized Specialty Services Required Urology Diagnoses Dysuria James Maria DO [address] [place] [address] Reason for Visit * Reason Comments Advice Encounter Details Date Type Department Care Team Description 03/14/2020 Telephone Family Practice [facility] [address] [address] James Maria DO [address] [place] [address] [phone] Advice Allergies Active Allergy Reactions Severity Noted Date Comments Lisinopril Edema face/lips/tongue High 04/05/2018 documented as of this encounter (statuses as of 03/20/2020) Medications Medication Sig Dispensed Refills Start Date End Date Status ciprofloxacin-dexam ethasone (CIPRODEX) 0.3-0.1 % otic suspensionIndicatio ns:Mixed hearing loss, unilateral,Chronic mastoiditis,Otitis media 4 DROPS RIGHT EAR ASNEEDED IF WATER GETS IN EAR 7.5 mL 3 01/29/2016 Active Blood Glucose Monitoring Suppl (Capitol Bells ULTRA SYSTEM) W/DEVICE KIT Use as directed [...] injectionIndication s:Type 2 diabetes mellitus with polyneuropathy ([facility]) Inject 5 Units under the skin three [...] as of this encounter (statuses as of 03/20/2020) Active Problems Problem Noted Date BPH with [...] as of this encounter (statuses as of 03/20/2020) Resolved Problems Problem Noted Date Resolved Date [...] as of this encounter (statuses as of 03/20/2020) Immunizations Name Administration Dates Next Due Pneumococcal [...] encounter Miscellaneous Notes * Telephone Encounter - Angélica Olivas OSA - 03/19/2020 2:18 PM EDT Pts calling, they spoke with Urology and the pt has decided to go with [facility]. They areasking for the referral to be faxed through so [facility] can get in contact with them about setting up an appointment. Thank you. * Telephone Encounter - Bee Soria OSA - 03/19/2020 10:55 AM EDT LMOM and letter sent 03/19/20 * Telephone Encounter - Bee Soria OSA - 03/15/2020 2:21 PM EDT LMOM to see if patient would like to go to [facility] or [place] * Telephone Encounter - Cate Maria LPN [...] what to do. Please advise pt at [phone] (this is his 's phone number. Pt states he doesn't hear well.) documented in this encounter Plan of Treatment Upcoming Encounters Date Type Specialty Care Team Description 04/03/2020 Office Visit Pain Management Avtar Merchant Stephen, DO [address] [place] [address] [phone] Scheduled Orders Name Type Priority Associated Diagnoses [...] Documents on File Type Date Recorded Patient Textile Coating Machine Operator Expl anation Advanced Directive service a hi default Advanced Directive Advanced Directive Advanced Directive Advanced Directive Advanced Directive Advanced Directive
--- OUTSIDE RECORDS SUMMARY | 2023-07-31 20:34 | External Medical Summary | Summary of Care ---
Author Name Unknown Organization [place] [address] Care Team Providers Care Electrical Instrument Repairer Name Role Phone James Maria DO Primary Care Provider Reason for Referral * Evaluate & Treat - Unlimited Visits (Within 10 days (routine)) Status Reason Specialty Diagnoses / Procedures Referred By Contact Referred To Contact Authorized Specialty Services Required Urology Diagnoses Dysuria James Maria DO [address] [place] [address] Reason for Visit * Reason Comments Advice Encounter Details Date Type Department Care Team Description 03/14/2020 Telephone Family Practice [facility] [address] [address] James Maria DO [address] [place] [address] [phone] Advice Allergies Active Allergy Reactions Severity Noted Date Comments Lisinopril Edema face/lips/tongue High 04/05/2018 documented as of this encounter (statuses as of 03/19/2020) Medications Medication Sig Dispensed Refills Start Date End Date Status ciprofloxacin-dexam ethasone (CIPRODEX) 0.3-0.1 % otic suspensionIndicatio ns:Mixed hearing loss, unilateral,Chronic mastoiditis,Otitis media 4 DROPS RIGHT EAR ASNEEDED IF WATER GETS IN EAR 7.5 mL 3 01/29/2016 Active Blood Glucose Monitoring Suppl (Sanergy ULTRA SYSTEM) W/DEVICE KIT Use as directed [...] injectionIndication s:Type 2 diabetes mellitus with polyneuropathy ([facility]) Inject 5 Units under the skin three [...] as of this encounter (statuses as of 03/19/2020) Active Problems Problem Noted Date BPH with [...] as of this encounter (statuses as of 03/19/2020) Resolved Problems Problem Noted Date Resolved Date [...] as of this encounter (statuses as of 03/19/2020) Immunizations Name Administration Dates Next Due Pneumococcal [...] if patient would like to go to [facility] or [place] * Telephone Encounter - Cate Maria LPN [...] what to do. Please advise pt at [phone] (this is his 's phone number. Pt states he doesn't hear well.) documented in this encounter Plan of Treatment Upcoming Encounters Date Type Specialty Care Team Description 04/03/2020 Office Visit Pain Management Avtar Merchant DO [address] [place] [address] [phone] Scheduled Orders Name Type Priority Associated Diagnoses [...] Documents on File Type Date Recorded Patient Training Assistant Expl anation Advanced Directive service a hi default Advanced Directive Advanced Directive Advanced Directive Advanced Directive Advanced Directive Advanced Directive
--- OUTSIDE RECORDS SUMMARY | 2023-07-31 20:34 | External Medical Summary | Summary of Care ---
Author Name Unknown Organization [place] [address] Care Team Providers Care Assistant Kitchen Manager Name Role Phone James Maria Primary Care Provider Reason for Visit * Reason Comments Test Results Encounter Details Date Type Department Care Team Description 04/17/2020 Telephone Interventional Pain Center, [facility] [address] [place] [address] CousinAvtar carmona DO [address] [place] [address] [phone] Test Results Allergies Active Allergy Reactions Severity Noted Date Comments Lisinopril Edema face/lips/tongue High 04/05/2018 documented as of this encounter (statuses as of 04/18/2020) Medications Medication Sig Dispensed Refills Start Date End Date Status ciprofloxacin-dexam ethasone (CIPRODEX) 0.3-0.1 % otic suspensionIndicatio ns:Mixed hearing loss, unilateral,Chronic mastoiditis,Otitis media 4 DROPS RIGHT EAR ASNEEDED IF WATER GETS IN EAR 7.5 mL 3 01/29/2016 Active Blood Glucose Monitoring Suppl (Mcor TechnologiesTOUCH ULTRA SYSTEM) W/DEVICE KIT Use as directed 4 times a day as needed for Hyperglycemia (high sugar) or Hypoglycemia (low sugar). Use up to four times a day as directed 1 Kit 0 01/29/2016 Active AppNetaUCH ULTRA BLUE STRP USE TO CHECK GLUCOSE [...] 100 Each 6 08/24/2017 Active Glucose Blood (Mcor TechnologiesTOUCH VERIO) STRP Use up to 4 times a day E11.9 300 Strip 3 08/24/2017 Active aspirin enteric coated 81 MG TBECIndications:Typ e 2 diabetes mellitus with diabetic neuropathy, unspecified (HCC) Take 1 Tab by mouth daily. 100 Tab 3 02/10/2018 Active Blood Glucose Monitoring Suppl (Mcor TechnologiesTOUCH VERIO) w/Device KITIndications:Type 2 diabetes mellitus with [...] as of this encounter (statuses as of 04/18/2020) Active Problems Problem Noted Date BPH with [...] as of this encounter (statuses as of 04/18/2020) Resolved Problems Problem Noted Date Resolved Date [...] as of this encounter (statuses as of 04/18/2020) Immunizations Name Administration Dates Next Due Pneumococcal [...] have Coronavirus / COVID-19? No / Unsure 04/10/2020 1:53 PM EDT documented as of this encounter Miscellaneous Notes * Telephone Encounter - Avtar Merchant DO - 04/18/2020 7:29 AM EDT Not read by radiology yet. Should be within the next day or two. * Telephone Encounter - Humberto Montgomery OSA - 04/17/2020 3:01 PM EDT Who is Requesting Test Results: Pt's Primary Care Provider : Dr. Maria Tests Results Requested : MRI of spine Date of Test : 04/10 Location of Test: [facility] Ordering Provider: Dr. Merchant Callback Number: [phone] Patient has been made aware that the turnaround time for test results are typically as follows: Laboratory results = within 2 days Pathology results (biopsy results/PAP) = 1-2 weeks Radiology results = within 1 week COVID testing = 24-48 hours documented in this encounter Plan of Treatment Upcoming Encounters Date Type Specialty Care Team Description 05/09/2020 Office Visit Podiatry Kylie Burroughs DPM [address] [facility] [place] [address] 05/29/2020 Office Visit Urology Chema Sequeira Jr., MD [address] [address] [place] [address] Health Maintenance Due Date Last Done Comments [...] Documents on File Type Date Recorded Patient Frame Polisher Expl 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 Advanced Directive
--- OUTSIDE RECORDS SUMMARY | 2023-07-31 20:34 | External Medical Summary | Summary of Care ---
Author Name Unknown Organization [place] [address] Care Team Providers Care Rotary Saw Operator Name Role Phone James Maria DO Primary Care Provider Reason for Referral * Evaluate & Treat - Unlimited Visits (Within 10 days (routine)) Status Reason Specialty Diagnoses / Procedures Referred By Contact Referred To Contact Authorized Specialty Services Required Urology Diagnoses Dysuria James Maria DO [address] [place] [address] Reason for Visit * Reason Comments Advice Encounter Details Date Type Department Care Team Description 03/14/2020 Telephone Family Practice [facility] [address] [address] James Maria DO [address] [address] [phone] Advice Allergies Active Allergy Reactions Severity Noted [...] 3 01/29/2016 Active Blood Glucose Monitoring Suppl ([facility] ULTRA SYSTEM) W/DEVICE KIT Use as directed [...] injectionIndication s:Type 2 diabetes mellitus with polyneuropathy ([facility]) Inject 5 Units under the [...] the referral to be faxed through so [facility] can get in contact with them about setting up an appointment. Thank you. * Telephone Encounter - Bee Soria OSA - 03/19/2020 10:55 AM EDT LMOM and letter sent 03/19/20 * Telephone Encounter - Bee Soria OSA - 03/15/2020 2:21 PM EDT LMOM to see if patient would like to go to [facility] or [place] * Telephone Encounter - Cate Maria LPN [...] what to do. Please advise pt at [phone] (this is his 's phone number. Pt states he doesn't hear well.) documented in this encounter Plan of Treatment Upcoming Encounters Date Type Specialty Care Team Description 04/03/2020 Office Visit Pain Management Avtar Merchant, [address] [place] [address] [phone] Scheduled Orders Name Type Priority Associated Diagnoses [...] Documents on File Type Date Recorded Patient Pharmaceutical Sales Representative Expl anation Advanced Directive service a hi default Advanced Directive Advanced Directive Advanced Directive Advanced Directive Advanced Directive Advanced Directive
--- OUTSIDE RECORDS SUMMARY | 2023-07-31 20:34 | External Medical Summary | Summary of Care ---
Author Name Unknown Organization [place] [address] Care Team Providers Care Application Development Director Name Role Phone Mejia Maria DO Primary Care Provider Reason for Visit * Reason Comments eRx-Medication Refill Encounter Details Date Type Department Care Team Description 05/03/2020 Refill Family Practice [facility] [address] [place] [address] Mejia Maria DO [address] [facility] [place] [address] [phone] Dyslipidemia*; Type 2 diabetes mellitus with hemoglobin A1c goal of less than 7.0% ([facility]) Allergies Active Allergy Reactions Severity [...] 05/03/2020 11:17 AM Blood Glucose Monitoring Suppl ([employer] ULTRA SYSTEM) W/DEVICE KIT Use as directed [...] Dysfunction. 5 Tab 6 08/24/20 17 Active Additional Information Patient not taking. Reported [...] MEALS 15 mL 3 01/27/20 19 Active Insulin Syringe-Needle U-100 (RELION INSULIN SYRINGE) 30G X 5/16" 0.3 ML MISCIndications:Ty pe 2 diabetes mellitus with polyneuropathy (HCC),Type 2 diabetes mellitus with hemoglobin A1c goal of less than 8.0% (HCC) Use up to 4 x a day for insulin dosing E11.9 1 Box Dosing Unit 3 10/14/20 19 Active zoster vac recomb adjuvanted (SHINGRIX) 50 MCG/0.5ML injectionIndicatio ns:Need for vaccination for zoster Inject 0.5 mL into a large muscle now and repeat dose in 60 to 180 days 1 Each 1 11/21/19 20 Active cyclobenzaprine (FLEXERIL) 5 MG TabletIndications: Chronic right-sided low back pain without sciatica Take 1 Tab by mouth 3 times a day as needed for Muscle spasms. 30 Tab 0 11/21/19 20 Active Additional Information Patient not taking. Reported on 05/03/2020 11:17 AM insulin isophane human (NOVOLIN N RELION) 100 UNIT/ML injectionIndicatio ns:Type 2 diabetes mellitus with polyneuropathy (HCC) Inject 35 Units under the skin at bedtime. 4 Vial 5 11/21/19 20 Active insulin REGULAR human (NOVOLIN R RELION) 100 UNIT/ML injectionIndicatio ns:Type 2 diabetes mellitus with polyneuropathy (HCC) Inject 5 Units under the skin three times a day before meals. 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 for pain. 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 90 Tab 1 01/18/20 20 Active amLODIPine (NORVASC) 5 MG Tablet Take 1 tablet by mouth once daily 90 Tab 3 05/06/20 20 Active atorvaSTATin (LIPITOR) 40 MG Tablet Take 1 tablet by mouth once daily 90 Tab 0 05/07/20 20 Active MetFORMIN (GLUCOPHAGE) 1000 MG TabletIndications: Type 2 diabetes mellitus with hemoglobin A1c goal of less than 7.0% (HCC) TAKE 1 TABLET BY MOUTH TWICE DAILY WITH MORNING AND EVENING MEALS 180 Tab 0 05/07/20 20 Active tamsulosin (FLOMAX) 0.4 MG Capsule Take 1 capsule by mouth once daily 90 Cap 0 05/07/20 20 Active amLODIPine (NORVASC) 5 MG Tablet Take 1 Tab by mouth daily. 90 Tab 3 01/27/20 19 020 Discontinued atorvaSTATin (LIPITOR) 40 MG Tablet Take 1 Tab by mouth daily. 90 Tab 3 01/27/20 19 020 Discontinued MetFORMIN (GLUCOPHAGE) 1000 MG TabletIndications: Type 2 diabetes mellitus with hemoglobin A1c goal of less than 7.0% (HCC) TAKE ONE TABLET BY MOUTH TWICE DAILY WITH MORNING AND EVENING MEALS 180 Tab 3 01/27/20 19 020 Discontinued tamsulosin (FLOMAX) 0.4 MG Capsule Take 1 Cap by mouth daily. 90 Cap 3 01/27/20 19 020 Discontinued documented as of this encounter (statuses [...] booklet. Historical. AC SEROUS OTITIS MEDIA 07/15/2006 12/20/201 8 HTN, goal below 140/90 12/26/2004 0 [...] Telephone Encounter - Mejia Maria DO - 05/07/2020 8:02 AM EDT Signed Prescriptions: Disp Refills amLODIPine (NORVASC) 5 MG Tablet 90 Tab 3 Sig: Take 1 tablet by mouth once daily Authorizing Provider: MEJIA MARIA Ordering User: MELANIE STOUT atorvaSTATin (LIPITOR) 40 MG Tablet 90 Tab 0 Sig: Take 1 tablet by mouth once daily Authorizing Provider: MEJIA MARIA MetFORMIN (GLUCOPHAGE) 1000 MG Ta blet 180 Tab0 Sig: TAKE 1 TABLET BY MOUTH TWICE DAILY WITH MORNING AND EVENING MEALS Authorizing Provider: MEJIA MARIA tamsulosin (FLOMAX) 0.4 MG Capsule 90 Cap 0 Sig: Take 1 capsule by mouth once daily Authorizing Provider: MEJIA MARIA * Telephone Encounter - Melanie Stout [facility] - 05/06/2020 8:10 PM EDT Pending Prescriptions: Disp Refills atorvaSTATin (LIPITOR) 40 MG Tablet [Phar*90 Tab 0 Sig: Take 1 tablet by mouth once daily MetFORMIN (GLUCOPHAGE) 1000 MG Tablet [Ph*180 Tab0 Sig: TAKE 1 TABLET BY MOUTH TWICE DAILY WITH MORNING AND EVENING MEALS tamsulosin (FLOMAX) 0.4 MG Capsule [Pharm*90 Cap 0 Sig: Take 1 capsule by mouth once daily Sign ed Prescriptions: Disp Refills amLODIPine (NORVASC) 5 MG Tablet 90 Tab 3 Sig: Take 1 tablet by mouth once daily Authorizing Provider: MEJIA MARIA Ordering User: MELANIE STOUT * Telephone Encounter - Melanie Stout [facility] - 05/06/2020 8:10 PM EDT Unable to authorize medication refills for metformin and statin at this time. Part of the protocol criteria used for refill authorization was not satisfied. Patient needs updated lipid panel. Lab ordered. Please approve if appropriate. [facility]ills for tamsulosin. Please approve if appropriate. ThanksMelanie, PharmD Clinical Pharmacist [facility] 05/06/2020 8:10 PM * Telephone Encounter - Melanie Stout [facility] - 05/06/2020 8:06 PM EDT Pending Prescriptions: Disp Refills atorvaSTATin (LIPITOR) 40 MG Tablet [Phar*90 Tab 0 Sig: Take 1 tablet by mouth once daily MetFORMIN (GLUCOPHAGE) 1000 MG Tablet [Ph*180 Tab0 Sig: TAKE 1 TABLET BY MOUTH TWICE DAILY WITH MORNING AND EVENING MEALS tamsulosin (FLOMAX) 0.4 MG Capsule [Pharm*90 Cap 0 Sig: Take 1 capsule by mouth once daily Signed Prescriptions: Disp Refills amLODIPine (NORVASC) 5 MG Tablet 90 Tab 3 Sig: Take 1 tablet by mouth once daily Authorizing Provider: MEJIA MARIA Ordering User: MELANIE STOUT Last Office/Telemedicine Visit: 03/13/2020 Next Office Visit: No Future Appointments If no future appointments scheduled, and last appointment is greater than a year ago, please schedule patient for a follow-up appointment Last date the medication was ordered: 01/26/19 Pharmacy: [facility] [id number] [address] [address] Is this request for a controlled substance?No Urine Drug Screen:No results found for this or any previous visit. Patient Phone Numbers Labs: Lab Results Component Value Date/Time CREAT 1.0 03/13/2020 09:26 AM POTASSIUM 4.1 03/13/2020 09:26 AM TSH 2.18 11/01/2008 10:02 AM LDLCALC 85 06/04/2016 01:48 PM LDLDIRECT 53 01/11/2018 11:20 AM ALT 8 (L) 01/11/2018 11:20 AM HGBA1C 7.4 (H) 03/13/2020 09:26 AM documented in this encounter Plan of Treatment Upcoming Encounters Date Type Specialty Care Team Description 05/09/2020 Office Visit Podiatry Kylie Burroughs DPM [address] [facility] [place] [address] 05/29/2020 Office Visit Urology Fabby Nielsen, Chema Seay MD [address] [place] [address] [place] [address] Scheduled Orders Name Type Priority Associated Diagnoses Orde r Schedule LIPID PANEL WITH DIRECT LDL IF TRIGLYCERIDE IS ELEVATED Lab Routine Dyslipidemia Expected: 05/06/2020 (Approximate), Expires: 05/06/2021 Health Maintenance Due Date Last Done Comments [...] Documents on File Type Date Recorded Patient Grey Roll Man Expl 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 Advanced Directive Advanced Directive
--- OUTSIDE RECORDS SUMMARY | 2023-07-31 20:34 | External Medical Summary | Summary of Care ---
Author Name Unknown Organization [place] [address] Care Team Providers Care Amortization Schedule Clerk Name Role Phone James Maria DO Primary Care Provider Reason for Referral * Precert (Routine) Status Reason Specialty Diagnoses / Procedures Referred By Contact Referred To Contact Pending Review Precert Radiology Diagnoses Lumbar radicular pain Procedures MRI L SPINE WO CONTRAST Avtar Merchant DO [address] [place] [address] Reason for Visit * Reason Comments Back Pain * Evaluate & Treat - Unlimited Visits (Within 10 days (routine)) Status Reason Specialty Diagnoses / Procedures Referred By Contact Referred To Contact Authorized Specialty Services Required Pain Management Diagnoses 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 James Maria DO [address] [place] [address] Encounter Details Date Type Department Care Team Description 04/03/2020 Office Visit [facility] [address] [place] [address] Avtar Merchant DO [address] [place] [address] [phone] Lumbar radicular pain* Allergies Active Allergy Reactions Severity Noted Date [...] 3 01/29/2016 Active Blood Glucose Monitoring Suppl ([employer] ULTRA SYSTEM) W/DEVICE KIT Use as directed [...] AM EDT documented as of this encounter Progress Notes * Avtar Merchant, - 04/03/2020 10:21 AM EDT GENERAL HISTORY & PHYSICAL EXAMINATION - Anesthesia and Pain Service Name: Selivn Sebastian Location: [facility] REFERRING PHYSICIAN: James Maria DO Thank you for referring Selvin Sebastian. CHIEF COMPLAINT: Low back/leg pain HPI: Selvin Sebastian is a 74 year old male who presents for consultation at the request of Dr. Maria, regarding a 4 month history of persistent severe pain in the mid upper lumbar region with radiation into the buttock and groin. He has some degree of aching discomfort in the buttocks or upper thighs at times. He has a very difficult historian and his hearing is severely impaired. Questions are mostly written on a white board by his and he then answers. He does have increased pain with standing and ambulation although it is difficult to discern true claudication symptoms. He has been complaining of some difficulty voiding and was scheduled to see Urology although had this has yet to occur. He has been seen by nephrology in the past. He does have some degree of renal dysfunction secondary to his diabetes. He had x-rays the thoracic spine recently which show some degenerative loss of disc height expected for age. There has been no lumbar spine MRI. He the patient did attend physical therapy although he felt that it may have exacerbated the symptoms. There is no preceding trauma t hat he can recall. He did not note improvement with use of Tylenol, Meloxicam , or muscle relaxants. 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 PAST SURGICAL HISTORY: Past Surgical History: Procedure Laterality Date COLONOSCOPY 11/05 clear - repeat 10 y COLONOSCOPY, DIAGNOSTIC (RECTUM) 12/10/2015 diverticulosis, repeat 10 yrs/COLONOSCOPY FLEXIBLE PROXIMAL DIAGNOSTIC performed by Agustin Saravia MD at [facility] FOOT/TOE SURGERY NEC 11/14 L foot deformity MASTOID SURGERY REVISION/APICECTOMY age 18 [facility] SHOULDER ARTHROSCOPY SURGERY 01/07 spur removed FAMILY HISTORY: Family History Problem Relation Age of Onset Diabetes Uncle (Unspecified) Diabetes Uncle (Unspecified) Diabetes Aunt (Unspecified) Diabetes Aunt (Unspecified) Hypertension Mother MVA age 69 Cancer Father lung - age 54 Diabetes Brother SOCIAL HISTORY: Social History Tobacco Use Smoking status: Former Smoker Last attempt to quit: 11/02/1980 Years since quittin.4 Smokeless tobacco: Never Used Substance Use Topics Alcohol use: Yes Alcohol/week: 0.0 standard drinks Comment: As of 12.19.2006, the last noted alcohol intake was 1 ounces. Drug use: No CURRENT MEDICATIONS: Note that discontinued and completed medications (per the MAR) continue to display for 24 hours. Ordered medications to be given in the future also display. Current Outpatient Medications Medication Sig Dispense Refill insulin isophane human (NOVOLIN N RELION) 100 UNIT/ML injection Inject 35 Units under the skin at bedtime. 4 Vial 5 insulin REGULAR human (NOVOLIN R RELION) 100 UNIT/ML injection Inject 5 Units under the skin three times a day before meals. 4 Vial 3 amLODIPine (NORVASC) 5 MG Tablet Take 1 Tab by mouth daily. 90 Tab 3 atorvaSTATin (LIPITOR) 40 MG Tablet Take 1 Tab by mouth daily. 90 Tab 3 MetFORMIN (GLUCOPHAGE) 1000 MG Tablet TAKE ONE TABLET BY MOUTH TWICE DAILY WITH MORNING AND EVENING MEALS 180 Tab 3 NOVOLOG FLEXPEN 100 UNIT/ML SOPN INJECT 5 UNITS SUBCUTANEOUSLY THREE TIMES DAILY WITH MEALS 15 mL 3 tamsulosin (FLOMAX) 0.4 MG Capsule Take 1 Cap by mouth daily. 90 Cap 3 aspirin enteric coated 81 MG TBEC Take 1 Tab by mouth daily. 100 Tab 3 Meloxicam 15 MG Tablet Take 1 Tab by mouth daily. 90 Tab 1 Meloxicam (MOBIC) 7.5 MG Tablet Take 1 Tab by mouth daily. for pain. 30 Tab 11 cyclobenzaprine (FLEXERIL) 5 MG Tablet Take 1 Tab by mouth 3 times a day as needed for Muscle spasms. 30 Tab 0 zoster vac recomb adjuvanted (SHINGRIX) 50 MCG/0.5ML injection Inject 0.5 mL into a large muscle now and repeat dose in 60 to 180 days 1 Each 1 Insulin Syringe-Needle U-100 (RELION INSULIN SYRINGE) 30G X 5/16" 0.3 ML MISC Use up to 4 x a day for insulin dosing E11.9 1 Box Dosing Unit 3 Blood Glucose Monitoring Suppl ([employer]) w/Device KIT Use as directed. Recommend check [...] 100 Strip 0 Blood Glucose Monitoring Suppl ([employer] ULTRA SYSTEM) W/DEVICE KIT Use as directed 4 times a day as needed for Hyperglycemia (high sugar) or Hypoglycemia (low sugar). Use up to four times a day as directed 1 Kit 0 ciprofloxacin-dexamethasone (CIPRODEX) 0.3-0.1 % otic suspension 4 DROPS RIGHT EAR ASNEEDED IF WATER GETS IN EAR 7.5 mL 3 ALLERGIES: Lisinopril ROS: Constitutional: Negative for fatigue, fever, appetite change, unexplained weight loss, insomnia. Eyes: Negative for abnormal vision, dryness, pain. ENT:Positive for hearing loss, negative for tinnitus, vertigo, dizziness, sore throat, dysphagia. Respiratory: Negative for cough, sputum production, shortness of breath, dyspnea. Musculoskeletal: Positive for low back pain Neurological: Negative for headaches, fainting, seizures. Psychiatric: Negative for anxiety, depression, hallucinations, suicidal thoughts. Genitourinary: Negative for dysuria, urinary frequency, urinary urgency,hematuria. Hematologic/ Lymphatic: Negative for easy bleeding, bruising, lymphadenopathy. Gastrointestinal: Negative for abdominal pain, nausea, vomiting, constipation, diarrhea, cramping, heart burn, fecal incontinence. Cardiovascular: Negative for chest pain, palpitations, ankle swelling, orthopnea. PHYSICAL EXAMINATION: Most Recent Vital Signs: There were no vitals filed for this visit. General Appearance: Patient appears to be about stated age, pleasant and cooperative with normal affect. HEENT: head normocephalic, pupils equal round and reactive to light and accommodation, EOMI, hearing intact and equal bilaterally and nose clear, throat normal Heart: regular rate and rhythm Lungs: Clear to Auscultation MS: He can stand ambulate without gait abnormality. He has +5/5 motor function lower extremities. There are no gross sensory deficits noted. He has +1/4 Achilles and patellar reflexes. He does not have significant pain with range of motion testing of the hips. He does not have significant sacroiliac joint or trochanteric tenderness. He has some prominence to the right the lumbar paravertebral musculature versus left although no specific trigger points. There is some lumbar pain with extension facet loading bilaterally. ASSESSMENT: Lumbar radicular pain Possible lumbar spinal stenosis PLAN: In light of the persistent and significant back and buttock pain along with his urinary complaints,I think an MRI lumbar spine would be appropriate. I will review this study with him soon as it is available. The patient does indicate the spouse should be contacted as he is not able to hear on the phone. Avtar Merchant DO 04/03/2020 documented in this encounter Nursing Notes * Gabriela Ojeda LPN - 04/03/2020 10:02 AM EDT Patient reports low back and b/l lower ext pain [id number] PT increased pain-Drayer No MRI documented in this encounter Plan of Treatment Scheduled Orders Name Type Priority Associated Diagnoses Orde r Schedule MRI L SPINE WO CONTRAST Medical Imaging Routine Lumbar radicular pain Ordered: 04/03/2020 Health Maintenance Due Date Last Done Comments [...] as of this encounter Visit Diagnoses Diagnosis Lumbar radicular pain- Primary Thoracic or lumbosacral neuritis or radiculitis, unspecified documented in this encounter Advance Directives Documents on File Type Date Recorded 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
--- OUTSIDE RECORDS SUMMARY | 2023-07-31 20:34 | External Medical Summary | Summary of Care ---
Author Name Unknown Organization [place] [address] Care Team Providers Care Inside Sales Name Role Phone James Martinez DO Primary Care Provider Reason for Referral * Evaluate & Treat - Unlimited Visits (Within 10 days (routine)) Status Reason Specialty Diagnoses / Procedures Referred By Contact Referred To Contact Authorized Specialty Services Required Urology Diagnoses Dysuria James Martinez DO [address] [place] [address] Reason for Visit * Reason Comments Advice Encounter Details Date Type Department Care Team Description 03/14/2020 Telephone Family Practice [facility] [address] [address] James Martinez DO [address] [address] [address] [phone] Advice Allergies Active Allergy Reactions Severity Noted [...] 3 01/29/2016 Active Blood Glucose Monitoring Suppl ([employer] ULTRA SYSTEM) W/DEVICE KIT Use as directed [...] 2 diabetes mellitus with polyneuropathy ([facility]) Inject 5 Units under the [...] have changed their mind about going to [facility] for Urology. Patient would now like to be seen in [place]. Patient is scheduled to see Dr. Sequeira on 05/29/20 in [place]. * Telephone Encounter - Bee Soria OSA - 03/20/2020 12:37 PM EDT Referral faxed * Telephone Encounter - Angélica Olivas OSA - 03/19/2020 2:18 PM EDT Pts calling, they spoke with Urology and the pt has decided to go with [facility]. They areasking for the referral to be faxed through so [facility] can get in contact with them about setting up an appointment. Thank you. * Telephone Encounter - Bee Soria OSA - 03/19/2020 10:55 AM EDT LMOM and letter sent 03/19/20 * Telephone Encounter - Bee Soria OSA - 03/15/2020 2:21 PM EDT LMOM to see if patient would like to go to [facility] or [place] * Telephone Encounter - Cate Martinez LPN [...] what to do. Please advise pt at [phone] (this is his 's phone number. Pt states he doesn't hear well.) documented in this encounter Plan of Treatment Upcoming Encounters Date Type Specialty Care Team Description 04/10/2020 Imaging Radiology 05/29/2020 Office Visit Urology Fabby Nielsen, Chema Seay MD [address] [place] [address] [place] [address] Scheduled Orders Name Type [...] on File Type Date Recorded Patient Hospital Television Rental Clerk Expl anation Advanced Directive service a ih default Advanced Directive Advanced Directive Advanced Directive Advanced Directive Advanced Directive Advanced Directive Advanced Directive
--- OUTSIDE RECORDS SUMMARY | 2023-07-31 20:34 | External Medical Summary ---
Author Name Unknown Address [facility] [place] [address] Phone Organization [address]:[place] [address] [id number] Laboratory Report Ordering Provider Test Date Status DAREN POOL 06/01/2020 15:16:00 Final Observation Date Value Abnormality Reference (Units) Status Color Ur Auto 06/01/2020 21:44 STRAW Abnormal YEL Final Clarity, Urine 06/01/2020 21:44 CLEAR CLEAR Final Glucose Ur Strip.auto-mCnc 06/01/2020 21:44 1000 Abnormal NEG (mg/dL) Final Bilirub Ur Ql Strip.auto 06/01/2020 21:44 NEGATIVE NEG Final Ketones Ur Strip.auto-mCnc 06/01/2020 21:44 NEGATIVE NEG (mg/dL) Final Specific gravity, Urine 06/01/2020 21:44 1.035 Above high normal 1.003-1.030 Final Hemoglobin [Presence] in Urine by Automated test strip 06/01/2020 21:44 NEGATIVE NEG Final pH, Urine 06/01/2020 21:44 6.0 5.0-7.5 (units) Final Prot Ur Strip.auto-mCnc 06/01/2020 21:44 NEGATIVE NEG (mg/dL) Final Urobilinogen Ur Strip.auto-mCnc 06/01/2020 21:44 NORMAL NORM (mg/dL) Final Nitrite Ur Ql Strip.auto 06/01/2020 21:44 NEGATIVE NEG Final Leukocyte esterase [Presence} in Urine by Automated test strip 06/01/2020 21:44 NEGATIVE NEG Final Annotation Comment 06/01/2020 21:44 SCREEN NEGATIVE - MICROSCOPIC NOT DONE Final Performing Location [address] [address]
--- OUTSIDE RECORDS SUMMARY | 2023-07-31 20:34 | External Medical Summary | Summary of Care ---
Author Name Unknown Organization [place] [address] Care Team Providers Care Veterinary Dentist Name Role Phone James Maria DO Primary Care Provider Reason for Referral * Evaluate & Treat - Unlimited Visits (Within 10 days (routine)) Status Reason Specialty Diagnoses / Procedures Referred By Contact Referred To Contact Authorized Specialty Services Required Urology Diagnoses Dysuria James Maria DO [address] [place] [address] Reason for Visit * Reason Comments Advice Encounter Details Date Type Department Care Team Description 03/14/2020 Telephone Family Practice [facility] [address] [address] James Maria DO [address] [address] [phone] Advice Allergies Active Allergy Reactions Severity Noted [...] 3 01/29/2016 Active Blood Glucose Monitoring Suppl (SpongeFish ULTRA SYSTEM) W/DEVICE KIT Use as directed [...] injectionIndication s:Type 2 diabetes mellitus with polyneuropathy ([facility]) Inject 5 Units under the skin three [...] the referral to be faxed through so [facility] can get in contact with them about setting up an appointment. Thank you. * Telephone Encounter - Bee Soria OSA - 03/19/2020 10:55 AM EDT LMOM and letter sent 03/19/20 * Telephone Encounter - Bee Soria OSA - 03/15/2020 2:21 PM EDT LMOM to see if patient would like to go to [facility] or [place] * Telephone Encounter - Cate Maria LPN [...] what to do. Please advise pt at [phone] (this is his 's phone number. Pt states he doesn't hear well.) documented in this encounter Plan of Treatment Upcoming Encounters Date Type Specialty Care Team Description 04/03/2020 Office Visit Pain Management Avtar Merchant Stephen, DO [address] [place] [address] [phone] Scheduled Orders Name Type Priority Associated Diagnoses [...] Documents on File Type Date Recorded Patient Relations Liaison Expl anation Advanced Directive service a hi default Advanced Directive Advanced Directive Advanced Directive Advanced Directive Advanced Directive Advanced Directive
--- OUTSIDE RECORDS SUMMARY | 2023-07-31 20:34 | External Medical Summary | Summary of Care ---
Author Name Unknown Organization [place] [address] Care Team Providers Care Embossograph Operator Name Role Phone James Maria DO Primary Care Provider Reason for Referral * Evaluate & Treat - Unlimited Visits (Within 10 days (routine)) Status Reason Specialty Diagnoses / Procedures Referred By Contact Referred To Contact Authorized Specialty Services Required Urology Diagnoses Dysuria James Maria DO [address] [place] [address] Reason for Visit * Reason Comments Advice Encounter Details Date Type Department Care Team Description 03/14/2020 Telephone Family Practice [facility] [address] [address] James Maria DO [address] [address] [phone] Advice Allergies Active Allergy Reactions Severity Noted [...] 3 01/29/2016 Active Blood Glucose Monitoring Suppl (Excelimmune ULTRA SYSTEM) W/DEVICE KIT Use as directed [...] injectionIndication s:Type 2 diabetes mellitus with polyneuropathy ([facility]) Inject 5 Units under the [...] encounter Miscellaneous Notes * Telephone Encounter - Cate Maria LPN [...] what to do. Please advise pt at [phone] (this is his 's phone number. Pt states he doesn't hear well.) documented in this encounter Plan of Treatment Upcoming Encounters Date Type Specialty Care Team Description 04/03/2020 Office Visit Pain Management Avtar Merchant DO [address] [place] [address] [phone] Scheduled Orders Name Type Priority Associated Diagnoses [...] on File Type Date Recorded Patient Manager Electronic Expl anation Advanced Directive service a hi default Advanced Directive Advanced Directive Advanced Directive Advanced Directive Advanced Directive Advanced Directive
--- OUTSIDE RECORDS SUMMARY | 2023-07-31 20:35 | External Medical Summary ---
Author Name Unknown Address [facility] [address] [place] [id number] Phone Organization K01:[place] [address] [address] [place] [id number] Laboratory Report Ordering Provider Test Date Status LEDA POLK 03/13/2020 09:26:00 Final Observation Date Value Abnormality Reference (Units ) Status PSA 03/13/2020 18:06 0.37 <4.1 (ng/mL) Final Performing Location [address] [address]
--- OUTSIDE RECORDS SUMMARY | 2023-07-31 20:35 | External Medical Summary | Summary of Care ---
Author Name Unknown Organization [place] [address] Care Team Providers Care Hop Sorter Name Role Phone James Maria DO Primary Care Provider Reason for Referral * Evaluate & Treat - Unlimited Visits (Within 10 days (routine)) Status Reason Specialty Diagnoses / Procedures Referred By Contact Referred To Contact Authorized Specialty Services Required Urology Diagnoses Dysuria James Maria DO [address] [place] [address] Reason for Visit * Reason Comments Advice Encounter Details Date Type Department Care Team Description 03/14/2020 Telephone Family Practice [facility] [address] [address] James Maria DO [address] [address] [phone] Advice Allergies Active Allergy Reactions Severity Noted [...] 3 01/29/2016 Active Blood Glucose Monitoring Suppl ([employer] ULTRA SYSTEM) W/DEVICE KIT Use as directed [...] s:Type 2 diabetes mellitus with polyneuropathy ([facility]) Inject 5 Units under the skin [...] what to do. Please advise pt at [phone] (this is his 's phone number. Pt states he doesn't hear well.) documented in this encounter Plan of Treatment Upcoming Encounters Date Type Specialty Care Team Description 04/03/2020 Office Visit Pain Management Avtar Merchant DO [address] [place] [address] [phone] Scheduled Orders Name Type Priority Associated Diagnoses [...] Documents on File Type Date Recorded Patient Toy Mechanic Expl anation Advanced Directive service a hi default Advanced Directive Advanced Directive Advanced Directive Advanced Directive Advanced Directive Advanced Directive
--- OUTSIDE RECORDS SUMMARY | 2023-07-31 20:35 | External Medical Summary ---
Author Name Unknown Address [facility] [place] [address] Phone Organization K01:[place] [address] [place] [id number] Laboratory Report Ordering Provider Test Date Status FELICITASLEDA 03/13/2020 13:44:00 Final Observation Date Value Abnormality Reference (Units ) Status Albumin, Urine 03/13/2020 19:50 2.61 (mg/dL) Final Creat Ur-sCnc 03/13/2020 19:50 113 (mg/dL) Final Microalbumin / Creatinine Ratio 03/13/2020 19:50 23 <30 (mg/g creat) Final Performing Location [facility] [address] [facility] [address]
--- OUTSIDE RECORDS SUMMARY | 2023-07-31 20:35 | External Medical Summary | Summary of Care ---
Author Name Unknown Organization [place] [address] Care Team Providers Care Ice Cream Scooper Name Role Phone James Maria DO Primary Care Provider Reason for Visit * Reason Comments Order Request Encounter Details Date Type Department Care Team Description 03/08/2020 Telephone Family Practice [facility] [place] [address] James Maria DO [address] [place] [address] [phone] Order Request Allergies Active Allergy Reactions Severity Noted Date Comments Lisinopril Edema face/lips/tongue High 04/05/2018 documented as of this encounter (statuses as of 03/13/2020) Medications Medication Sig Dispensed Refills Start Date End Date Status ciprofloxacin-dexam ethasone (CIPRODEX) 0.3-0.1 % otic suspensionIndicatio ns:Mixed hearing loss, unilateral,Chronic mastoiditis,Otitis media 4 DROPS RIGHT EAR ASNEEDED IF WATER GETS IN EAR 7.5 mL 3 01/29/2016 Active Blood Glucose Monitoring Suppl (Managed SystemsTOUCH ULTRA SYSTEM) W/DEVICE KIT Use as [...] 100 Each 6 08/24/2017 Active Glucose Blood (Managed SystemsTOUCH VERIO) STRP Use up to 4 times a day E11.9 300 Strip 3 08/24/2017 Active aspirin enteric coated 81 MG TBECIndications:Typ e 2 diabetes mellitus with diabetic neuropathy, unspecified (HCC) Take 1 Tab by mouth daily. 100 Tab 3 02/10/2018 Active Blood Glucose Monitoring Suppl (Managed SystemsTOUCH VERIO) w/Device KITIndications:Type 2 diabetes mellitus with [...] as of this encounter (statuses as of 03/13/2020) Active Problems Problem Noted Date BPH with [...] as of this encounter (statuses as of 03/13/2020) Resolved Problems Problem Noted Date Resolved Date [...] as of this encounter (statuses as of 03/13/2020) Immunizations Name Administration Dates Next Due Pneumococcal [...] Vaccine (Adult) 08/03/2012 Zoster Vaccine Recombinant (Shingrix) 11/21/2019 documented as of this encounter Social History [...] encounter Miscellaneous Notes * Telephone Encounter - Priscilla Box LPN - 03/13/2020 10:50 AM EDT Pt scheduled to see Dr Yañez 03/13/2020 * Telephone Encounter - Maye Larkin LPN - 03/09/2020 2:40 PM EDT Left number for patient to call back. * Telephone Encounter - Adriana Stover PA-C - 03/09/2020 12:25 PM EDT OV, face to face Differential is broad Can go to [facility] or ER if severe * Telephone Encounter - Petar Mcdermott OSA - 03/08/2020 5:24 PM EDT An order was requested for this patient. Name of Requesting Provider: Patient's Order Requested: US Diagnosis/Reason for Request: kidneys Does the order need to be faxed somewhere? If so, where?: no Fax Number, if applicable: Call Back Number: [phone] An order was requested for this patient. Name of Requesting Provider: Patient's Order Requested: xray Diagnosis/Reason for Request: chest Does the order need to be faxed somewhere? If so, where?: no Fax Number, if applicable: Call Back Number: [phone] Patient's calling in stating that the patient's back pain has been moving across his sides andaround to the front. She stated that the chiropractor advised that it could be his kidneys. She also requested the chest xray due the pain. Patient is scheduled on 03/12/20 for a return appointment. documented in this encounter Plan of Treatment Upcoming Encounters Date Type Specialty Care Team Description 03/13/2020 Imaging Radiology 04/03/2020 Office Visit Pain Management Avtar Merchant, DO [address] [place] [address] [phone] Health Maintenance Due Date Last Done Comments DIABETES-URINE MICROALBUMIN EVERY 12 MONTHS 12/13/2019 12/13/2018, 01/11/2018, 12/24/2015, Additional history exists *BASIC METABOLIC PANEL (BMP) FOR HTN YEARLY 12/16/2019 Zoster Vaccines (3 of 3) 01/16/2020 11/21/2019, 12/2011 DIABETES-HGBA1C EVERY 6 MONTHS 05/16/2020 11/16/2019, 12/13/2018, 01/11/2018, Additional history exists DIABETES-FOOT EXAM 10/13/2020 10/13/2019, 0 06/07/2018, 05/13/2017, Additional history exists Yearly B-12 11/16/2020 11/16/2019, 01/11/2018 DIABETES-EYE EXAM 12/15/2020 12/15/2019, , 02/28/2013, Additional history exists DTaP,Tdap,and Td Vaccines (2 - Td) 10/21/2021 10/21/2011, 11/09/2003 Pneumococcal Vaccine: 65+ Years Completed 12/24/2015, 07/23/2011 Influenza Vaccine (FLU shot) Completed , 10/21/2018, 09/10/2017, Additional history exists MENINGOCOCCAL (MENACTRA/MENVEO) Aged Out No longer eligible based on patient's age to complete this topic documented as of this encounter Implants Not on filedocumented as of this encounter Advance Directives Documents on File Type Date Recorded Patient Marine Drafter Expl anation Advanced Directive service a hi default Advanced Directive Advanced Directive Advanced Directive Advanced Directive Advanced Directive Advanced Directive
--- OUTSIDE RECORDS SUMMARY | 2023-07-31 20:35 | External Medical Summary ---
Author Name Unknown Address [address] [facility] [place] [address] Phone Organization K0G:[facility] [employer] [address] [facility] [place] [address] Laboratory Report Ordering Provider Test Date Status LEDA POLK 03/13/2020 09:26:00 Final Observation Date Value Abnormality Reference (Units ) Status BUN 03/13/2020 10:51 24 Above high normal 6-20 (mg/dL) Final Creatinine 03/13/2020 10:51 1.0 0.6-1.2 (mg/ dL) Final E Glom Filt Rate 03/13/2020 10:51 >60.0 >60 Final Performing Location [facility] [employer] [address] [facility] [place] [address]
--- OUTSIDE RECORDS SUMMARY | 2023-07-31 20:35 | External Medical Summary | Summary of Care ---
Author Name Unknown Organization [facility] Address [place] [address] Care Team Providers Care Dredge Runner Name Role Phone James Maria DO Primary Care Provider Reason for Visit * Reason Comments Advice Encounter Details Date Type Department Care Team Description 01/10/2020 Telephone Family Practice [facility] [address] [place] [address] James Maria DO [address] [facility] [place] [address] [phone] Advice Allergies Active Allergy Reactions Severity Noted Date Comments Lisinopril Edema face/lips/tongue High 04/05/2018 documented as of this encounter (statuses as of 01/11/2020) Medications Medication Sig Dispensed Refills Start Date End Date Status ciprofloxacin-dexam ethasone (CIPRODEX) 0.3-0.1 % otic suspensionIndicatio ns:Mixed hearing loss, unilateral,Chronic mastoiditis,Otitis media 4 DROPS RIGHT EAR ASNEEDED IF WATER GETS IN EAR 7.5 mL 3 01/29/2016 Active Blood Glucose Monitoring Suppl (American AerogelTOUCH ULTRA SYSTEM) W/DEVICE KIT Use as directed [...] 100 Each 6 08/24/2017 Active Glucose Blood (Pegasus Tower CompanyUCH VERIO) STRP Use up to 4 times a day E11.9 300 Strip 3 08/24/2017 Active aspirin enteric coated 81 MG TBECIndications:Typ e 2 diabetes mellitus with diabetic neuropathy, unspecified (HCC) Take 1 Tab by mouth daily. 100 Tab 3 02/10/2018 Active Blood Glucose Monitoring Suppl (American AerogelTOUCH VERIO) w/Device KITIndications:Type 2 diabetes mellitus with [...] for pain. 30 Tab 11 01/11/2020 Active documented as of this encounter (statuses as of 01/11/2020) Active Problems Problem Noted Date Tympanic membrane perforation, right 01/2020 Obsessive-compulsive disorder, unspecifi ed 11/21/2019 Type 2 diabetes mellitus with polyneurop athy 12/13/2018 Need for prophylactic vaccination and in oculation against influenza 10/21/2018 DM type 2 nursing care encounter 018 Foot deformity, bilateral 10/21/2018 MARYSOL inhibitor intolerance 04/05/2018 HTN, goal below 140/90 01/07/2016 Overview: Per HTN Protocol #27. OBESITY, BMI 30-34 (SEE ACTUAL BMI) 01/01 Overview: Per Obesity Taxonomy DYSLIPIDEMIA, GOAL LDL BELOW 100 009 Overview: Per Lipid Taxonomy. Type 2 diabetes mellitus with hemoglobin A1c goal of less than 8.0% 08/16/2009 Overview: Modified per Diabetes protocol #14. ICD-10 update of inactive term ADVANCE DIRECTIVE INFORMATION 07/15/2006 Overview: Pt took booklet. Mixed conductive and sensori neural hearing loss of right ear with restricted hearing of left ear Overview: right Deafness, left Overview: left Otitis media Chronic mastoiditis documented as of this encounter (statuses as of 01/11/2020) Resolved Problems Problem Noted Date Resolved Date Neurogenic ulcer of foot 05/19/2017 017 HTN, GOAL BELOW 140/80 06/21/2012 6 Overview: Per HTN Protocol #27. HTN, GOAL BELOW 130/80 11/28/2009 2 Overview: Per HTN Taxonomy. DM type 2, not at goal 04/05/2009 9 Overview: Modified per Diabetes protocol #14. Dyslipidemia, goal LDL below 160 04/05/2009 10/15/2009 Overview: Per Lipid Taxonomy. Obesity, BMI not known 04/04/2009 0 Overview: Per Obesity Taxonomy AC SEROUS OTITIS MEDIA 07/15/2006 8 HTN, goal below 140/90 12/26/2004 0 Overview: Per HTN Taxonomy. Hearing loss 11/09/2003 05/13/2017 Allergic rhinitis 10/21/2018 Dysfunction of eustachian tube 1 12/22/2017 documented as of this encounter (statuses as of 01/11/2020) Immunizations Name Administration Dates Next Due Pneumococcal [...] file Travel History Travel Start Travel End documented as of this encounter Miscellaneous Notes * Telephone Encounter - Shani Freire OSA - 01/11/2020 9:54 AM EDT Patient has been notified of the message. Patient has no further questions. 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 Advise to take with food. F/u in clinic if still not improving. * Telephone Encounter - Shani Calderon LPN - 01/10/2020 4:42 PM EDT Last OV 12/15/19, bring back in for OV/re-eval? * Telephone Encounter - Chanell Lo OSA - 01/10/2020 4:27 PM EDT Pt's calling in to report to the pt's pcp that the pt did not go to PT today. Pt feels that the PT has been making his back pain much worse. She also states that the pain has moved from just up and down his spine outward around his sides. Medications have not been successful in treating the pain. They have been using icyhot seemed to help with use of a heating pad. Farhana states that one of the medications made the pt sick to his stomach. They are asking for advice for the next step in treatment. Please advise. 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
--- OUTSIDE RECORDS SUMMARY | 2023-07-31 20:35 | External Medical Summary | Summary of Care ---
Author Name Unknown Organization [place] [address] Care Team Providers Care Development Associate Name Role Phone James Maria DO Primary Care Provider Reason for Visit * Reason Comments case management Encounter Details Date Type Department Care Team Description 02/16/2020 Calendering Supervisor Telephone Family Practice [facility] [address] [facility] [place] [address] James Maria DO [address] [facility] [place] [address] [phone] case management Allergies Active Allergy Reactions Severity Noted Date Comments Lisinopril Edema face/lips/tongue High 04/05/2018 documented as of this encounter (statuses as of 02/17/2020) Medications Medication Sig Dispensed Refills Start Date End Date Status ciprofloxacin-dexam ethasone (CIPRODEX) 0.3-0.1 % otic suspensionIndicatio ns:Mixed hearing loss, unilateral,Chronic mastoiditis,Otitis media 4 DROPS RIGHT EAR ASNEEDED IF WATER GETS IN EAR 7.5 mL 3 01/29/2016 Active Blood Glucose Monitoring Suppl (ONETOUCH ULTRA SYSTEM) [...] 100 Each 6 08/24/2017 Active Glucose Blood (Green Revolution CoolingTOUCH VERIO) STRP Use up to 4 times a day E11.9 300 Strip 3 08/24/2017 Active aspirin enteric coated 81 MG TBECIndications:Typ e 2 diabetes mellitus with diabetic neuropathy, unspecified (HCC) Take 1 Tab by mouth daily. 100 Tab 3 02/10/2018 Active Blood Glucose Monitoring Suppl ([employer] Revolution CoolingTOUCH VERIO) w/Device KITIndications:Type 2 diabetes mellitus with [...] as of this encounter (statuses as of 02/17/2020) Active Problems Problem Noted Date Tympanic membrane perforation, right 01/2020 Obsessive-compulsive disorder, unspecifi ed 11/21/2019 Type 2 diabetes mellitus with polyneurop athy 12/13/2018 DM type 2 nursing care encounter 018 [...] ear Overview: right Deafness, left Overview: left Chronic mastoiditis documented as of this encounter (statuses as of 02/17/2020) Resolved Problems Problem Noted Date Resolved Date Need for prophylactic vaccin ation and inoculation against influenza 10/21/2018 02/09/2020 Overview: Acute. Neurogenic ulcer of foot 05/19/2017 017 HTN, [...] Per HTN Taxonomy. Hearing loss 11/09/2003 05/13/2017 Otitis media 02/09/2020 Overview: Acute. Allergic rhinitis 10/21/2018 Dysfunction of eustachian tube 1 12/22/2017 documented as of this encounter (statuses as of 02/17/2020) Immunizations Name Administration Dates Next Due Pneumococcal [...] have Coronavirus / COVID-19? No / Unsure 02/16/2020 2:35 PM EDT documented as of this encounter Miscellaneous Notes * Telephone Encounter - Rani Knott RN - 02/16/2020 2:31 PM EDT Spoke with today. Patient plans to keep his appt with Dr Maria on 02/22 in person. She reports that they are due for the second shingles shot and they would like to get it at the appointment. Has been going to chiropractor as well, had an appt today. Doing better with pain control. FYI Scheduling. documented in this encounter Plan of Treatment Upcoming Encounters Date Type Specialty Care Team Description 02/23/2020 Office Visit Family Medicine James Maria, [address] [place] [address] [phone] 04/03/2020 Office Visit Pain Management Avtar Merchant, [address] [place] [address] [phone] Health Maintenance Due Date Last Done Comments [...] Documents on File Type Date Recorded Patient Cable Maker Expl anation Advanced Directive service a hi default Advanced Directive Advanced Directive Advanced Directive Advanced Directive Advanced Directive
--- OUTSIDE RECORDS SUMMARY | 2023-07-31 20:35 | External Medical Summary | Summary of Care ---
Author Name Unknown Organization [facility] Address [place] [address] Care Team Providers Care Coil Binder Name Role Phone James Maria DO Primary Care Provider Reason for Visit * Reason Comments Appointment msg left Encounter Details Date Type Department Care Team Description 03/09/2020 Telephone Family Practice [facility] [address] [facility] [place] [address] James Maria DO [address] [facility] [place] [address] [phone] Appointment (msg left ) Allergies Active Allergy Reactions Severity Noted Date Comments Lisinopril Edema face/lips/tongue High 04/05/2018 documented as of this encounter (statuses as of 03/09/2020) Medications Medication Sig Dispensed Refills Start Date End Date Status ciprofloxacin-dexam ethasone (CIPRODEX) 0.3-0.1 % otic suspensionIndicatio ns:Mixed hearing loss, unilateral,Chronic mastoiditis,Otitis media 4 DROPS RIGHT EAR ASNEEDED IF WATER GETS IN EAR 7.5 mL 3 01/29/2016 Active Blood Glucose Monitoring Suppl (Alcanzar SolarUCH ULTRA SYSTEM) W/DEVICE KIT Use as directed 4 times a day as needed for Hyperglycemia (high sugar) or Hypoglycemia (low sugar). Use up to four times a day as directed 1 Kit 0 01/29/2016 Active Alcanzar SolarUCH ULTRA BLUE STRP USE TO CHECK GLUCOSE 4 TIMES DAILY 100 Strip 0 11/13/2016 Active Alcanzar SolarUCH DELICA LANCETS 33G MISC USE ONE TO [...] 100 Each 6 08/24/2017 Active Glucose Blood (Behind the BurnerTOUCH VERIO) STRP Use up to 4 times a day E11.9 300 Strip 3 08/24/2017 Active aspirin enteric coated 81 MG TBECIndications:Typ e 2 diabetes mellitus with diabetic neuropathy, unspecified (HCC) Take 1 Tab by mouth daily. 100 Tab 3 02/10/2018 Active Blood Glucose Monitoring Suppl (Behind the BurnerTOUCH VERIO) w/Device KITIndications:Type 2 diabetes mellitus with [...] as of this encounter (statuses as of 03/09/2020) Active Problems Problem Noted Date Tympanic membrane [...] as of this encounter (statuses as of 03/09/2020) Resolved Problems Problem Noted Date Resolved Date [...] as of this encounter (statuses as of 03/09/2020) Immunizations Name Administration Dates Next Due Pneumococcal [...] encounter Miscellaneous Notes * Telephone Encounter - Roxanne Benavides OSA - 03/09/2020 10:15 AM EDT msg left to notify, asked to reschedule with another provider if agreeable Green dotted. documented in this encounter Plan of Treatment Upcoming Encounters Date Type Specialty Care Team Description 04/03/2020 Office Visit Pain Management Avtar Merchant DO [address] [place] [address] [phone] Health Maintenance Due Date Last Done Comments [...] Documents on File Type Date Recorded Patient Dinkey Engine Firer Expl anation Advanced Directive service a hi default Advanced Directive Advanced Directive Advanced Directive Advanced Directive Advanced Directive
--- OUTSIDE RECORDS SUMMARY | 2023-07-31 20:35 | External Medical Summary | Summary of Care ---
Author Name Unknown Organization [facility] Address [place] [address] Care Team Providers Care Lead Housekeeper Name Role Phone James Maria DO Primary Care Provider Reason for Visit * Reason Comments Appointment msg left Encounter Details Date Type Department Care Team Description 03/09/2020 Telephone Family Practice [facility] [address] [facility] [place] [address] James Maria DO [address] [facility] [place] [address] [phone] Appointment (msg left ) Allergies Active Allergy Reactions Severity Noted Date Comments Lisinopril Edema face/lips/tongue High 04/05/2018 documented as of this encounter (statuses as of 03/10/2020) Medications Medication Sig Dispensed Refills Start Date End Date Status ciprofloxacin-dexam ethasone (CIPRODEX) 0.3-0.1 % otic suspensionIndicatio ns:Mixed hearing loss, unilateral,Chronic mastoiditis,Otitis media 4 DROPS RIGHT EAR ASNEEDED IF WATER GETS IN EAR 7.5 mL 3 01/29/2016 Active Blood Glucose Monitoring Suppl (ProgressusUCH ULTRA SYSTEM) W/DEVICE KIT Use as directed 4 times a day as needed for Hyperglycemia (high sugar) or Hypoglycemia (low sugar). Use up to four times a day as directed 1 Kit 0 01/29/2016 Active ProgressusUCH ULTRA BLUE STRP USE TO CHECK GLUCOSE 4 TIMES DAILY 100 Strip 0 11/13/2016 Active ProgressusUCH DELICA LANCETS 33G MISC USE ONE TO [...] 100 Each 6 08/24/2017 Active Glucose Blood (baseclickTOUCH VERIO) STRP Use up to 4 times a day E11.9 300 Strip 3 08/24/2017 Active aspirin enteric coated 81 MG TBECIndications:Typ e 2 diabetes mellitus with diabetic neuropathy, unspecified (HCC) Take 1 Tab by mouth daily. 100 Tab 3 02/10/2018 Active Blood Glucose Monitoring Suppl (baseclickTOUCH VERIO) w/Device KITIndications:Type 2 diabetes mellitus with [...] as of this encounter (statuses as of 03/10/2020) Active Problems Problem Noted Date Tympanic membrane [...] as of this encounter (statuses as of 03/10/2020) Resolved Problems Problem Noted Date Resolved Date [...] as of this encounter (statuses as of 03/10/2020) Immunizations Name Administration Dates Next Due Pneumococcal [...] have Coronavirus / COVID-19? No / Unsure 03/10/2020 11:01 AM EDT documented as of this encounter Miscellaneous Notes * Telephone Encounter - Carolyn Garcia LPN - 03/10/2020 1:31 PM EDT Left message on machine ok for shingles vaccine at appt * Telephone Encounter - Angélica Olivas OSA - 03/10/2020 11:10 AM EDT Pt's calling, appt was scheduled for Thursday with . Video appt was offered but declined because pt wants to be seen in person and to get shingles vaccine. wants to double check that it is called in that they will both have it available to get done on Thursday. will be coming in at 8:30 for nurse visit, and pt has appt at 8:45. Please advise, thank you. * Telephone Encounter - Roxanne Benavides OSA - 03/09/2020 10:15 AM EDT msg left to notify, asked to reschedule with another provider if agreeable Green dotted. documented in this encounter Plan of Treatment Upcoming Encounters Date Type Specialty Care Team Description 03/13/2020 Office Visit Family Medicine Sujit Yañez MD [address] [place] [address] [phone] 04/03/2020 Office Visit Pain Management Avtar Merchant DO [address] [place] [address] [phone] Health Maintenance Due Date Last Done Comments [...] on File Type Date Recorded Patient Sap Basis Administrator Expl anation Advanced Directive service a hi default Advanced Directive Advanced Directive Advanced Directive Advanced Directive Advanced Directive
--- OUTSIDE RECORDS SUMMARY | 2023-07-31 20:35 | External Medical Summary | Summary of Care ---
Author Name Unknown Organization [place] [address] Care Team Providers Care Chemistry Faculty Member Name Role Phone James Maria DO Primary Care Provider Reason for Visit * Reason Comments Scan To Read Encounter Details Date Type Department Care Team Description 12/15/2019 Telephone Family Practice [facility] [address] [facility] [place] [id number] James Maria DO 132 [facility] [place] [address] [phone] Scan To Read Allergies Active Allergy Reactions Severity Noted Date Comments Lisinopril Edema face/lips/tongue High 04/05/2018 documented as of this encounter (statuses as of 03/14/2020) Medications Medication Sig Dispensed Refills Start Date [...] 100 Each 6 08/24/2017 Active Glucose Blood (FlixlabTOUCH VERIO) STRP Use up to 4 times a day E11.9 300 Strip 3 08/24/2017 Active aspirin enteric coated 81 MG TBECIndications:Typ e 2 diabetes mellitus with diabetic neuropathy, unspecified (HCC) Take 1 Tab by mouth daily. 100 Tab 3 02/10/2018 Active Blood Glucose Monitoring Suppl (FlixlabTOUCH VERIO) w/Device KITIndications:Type 2 diabetes mellitus with [...] before meals. 4 Vial 3 11/21/2019 Active documented as of this encounter (statuses as of 03/14/2020) Active Problems Problem Noted Date BPH with [...] as of this encounter (statuses as of 03/14/2020) Resolved Problems Problem Noted Date Resolved Date [...] as of this encounter (statuses as of 03/14/2020) Immunizations Name Administration Dates Next Due Pneumococcal [...] Miscellaneous Notes * Telephone Encounter - Jeremiah Bermudze MD - 12/15/2019 5:35 PM EST Retinal Scan Imaging [facility] [place] [id number] Retinal Scan Interpretation: There is no retinopathy in both eyes Diabetes Retinal Imaging Care Plan: The retinal scan results are normal - I will forward this encounter to the Ophthalmology DM Letter Pool [[id number]], they will send a normal retinal scan letter to the patient, and the patient will be seen back for a yearly scan. Jeremiah Bermudez MD 12/15/2019 5:35 PM * Telephone Encounter - Brenda Santiago LPN - 12/15/2019 3:26 PM EST A Diabetic Telemed Eye image was taken and requires your interpretation for Dr Maria. Please check your inbasket for image. Patient prefers to be seen at [facility] if a follow-up appointment is needed. documented in this encounter Plan of Treatment Upcoming Encounters Date Type Specialty Care Team Description 04/03/2020 Office Visit Pain Management Avtar Merchant, DO [address] [place] [address] [phone] Health Maintenance Due Date Last Done Comments *BASIC METABOLIC PANEL (BMP) FOR HTN YEARLY 12/16/2019 DIABETES-HGBA1C EVERY 6 MONTHS 09/13/2020 03/13/2020, 11/16/2019, [...] Documents on File Type Date Recorded Patient Automatic Data Processing Planner Expl anation Advanced Directive service a hi default Advanced Directive Advanced Directive Advanced Directive Advanced Directive Advanced Directive Advanced Directive
--- OUTSIDE RECORDS SUMMARY | 2023-07-31 20:35 | External Medical Summary | Summary of Care ---
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 [address] [place] [address] James Maria DO [address] [facility] [place] [address] [phone] Medication Question Allergies Active Allergy Reactions Severity Noted Date Comments Lisinopril Edema face/lips/tongue High 04/05/2018 documented as of this encounter (statuses as of 01/18/2020) Medications Medication Sig Dispensed Refills Start Date [...] injectionIndication s:Type 2 diabetes mellitus with polyneuropathy ([facility]) Inject 35 Units under the skin at bedtime. 4 Vial 5 11/21/2019 Active insulin REGULAR human (NOVOLIN R RELION) 100 UNIT/ML injectionIndication s:Type 2 diabetes mellitus with polyneuropathy ([facility]) Inject 5 Units under the skin [...] as of this encounter (statuses as of 01/18/2020) Active Problems Problem Noted Date Tympanic membrane [...] as of this encounter (statuses as of 01/18/2020) Resolved Problems Problem Noted Date Resolved Date [...] as of this encounter (statuses as of 01/18/2020) Immunizations Name Administration Dates Next Due Pneumococcal [...] encounter Miscellaneous Notes * Telephone Encounter - Cathi Hernandez CPhT - 01/18/2020 2:03 PM EDT pts calling back, advised her new increased rx was sent in Cathi Taveras [facility] 01/18/2020, 2:03 PM * Telephone Encounter - Rita Grossman LPN - 01/18/2020 11:59 AM EDT Left message on 's VM to return call. Pt is hard of hearing. * Telephone Encounter - James Maria DO - 01/18/2020 11:42 AM EDT Agree with recommendations, ordered increased dose, BMP, and will also have pain management evaluation for consideration of injection due to the shooting pains. * Telephone Encounter - Sheila Tilley, [facility] - 01/18/2020 10:09 AM EDT Per patient's , helps for a couple hours. Sometimes patient has shooting pain up to the neck. Not sure if mobic helps with shooting pain. Per pt's , patient is still taking cyclobenzaprine. Believes this helps "somewhat" Patient is not taking ibuprofen or naproxen. Patient's last renal function is over a year ago. E GLOM FILT RATE Date Value Ref Range Status 12/13/2018 >60.0 >60 Final Comment: If patient is , multiply estimated GFR by 1.159. Recommend increasing patient to mobic 15mg once daily, having a BMP completed, and evaluating patient for nerve pain due to "shooting pain." Pended script for mobic 15mg. Please approve and advise ifappropriate. Thank you, Sheila Tilley, PharmD Clinical Pharmacist Telepharmacy 01/18/2020, 10:14 AM Electronically signed by Sheila Tilley [facility] at 01/18/2020 10:17 AM EDT * Telephone Encounter - Jonna Deshpande CPhT - 01/18/2020 10:05 AM EDT Pt's Farhana calling asking to increase his meloxicam 7.5 Warm transfer to [facility] Thank you, Jonna Deshpande CPhT Help Desk Engineer [facility] 01/18/2020, 10:06 AM documented in this encounter Plan of Treatment Upcoming Encounters Date Type Specialty Care Team Description 02/23/2020 Office Visit Family Medicine James Maria DO [address] [place] [address] [phone] 03/21/2020 Office Visit Podiatry [facility] [address] [place] [address] [phone] Scheduled Orders Name Type Priority Associated Diagnoses Orde r Schedule BASIC METAB PANEL, BMP Lab Routine 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
--- OUTSIDE RECORDS SUMMARY | 2023-07-31 20:35 | External Medical Summary | Summary of Care ---
Author Name Unknown Organization [place] [address] Care Team Providers Care Mba Intern Name Role Phone James Maria Primary Care Provider Reason for Visit * Reason Comments Re-Check Patient states havin g low back pain, flank and in the front both sides. patient states wonding if kidney problems. patient statse urine stream is not as strong as it was. just a little stream now. patinet also reports more Sob. pt states the older he gets the more SOB he gets. Immunizations Shingrix Encounter Details Date Type Department Care Team Description 03/13/2020 Office Visit Family Practice [facility] 132 [facility] [place] [address] Sujit Yañez MD 132 [facility] [place] [id number] Multilevel degenerative disc disease*; BPH with obstruction/lower urinary tract symptoms; Mixed obsessional thoughts and acts; HTN, goal below 130/80; Type 2 diabetes mellitus with hemoglobin A1c goal of less than 8.0% (HCC); Type 2 diabetes mellitus with polyneuropathy (HCC); Dyslipidemia; Mixed conductive and sensorineural hearing loss of right ear with restricted hearing of left ear; Foot deformity, bilateral; Screening PSA (prostate specific antigen); Need for vaccination for zoster; Flank pain Allergies Active Allergy Reactions Severity Noted Date [...] 3 01/29/2016 Active Blood Glucose Monitoring Suppl (Webinar.ruTOUCH ULTRA SYSTEM) W/DEVICE KIT Use as directed [...] Sign Reading Time Taken Comments Blood Pressure 144/82 03/13/2020 8:49 AM EDT Pulse 68 03/13/2020 8:49 AM EDT Temperature 37 C (98.6 F) 03/13/2020 8:49 AM EDT Respiratory Rate 20 03/13/2020 8:49 AM EDT Oxygen Saturation - - Inhaled Oxygen Concentration - - Weight 86 kg (189 lb 9.6 oz) 03/13/2020 8:49 AM EDT Height - - Body Mass Index 30.6 12/15/2019 10:35 AM EST documented in this encounter Progress Notes * Sujit Yañez MD - 03/13/2020 9:17 AM EDT SUBJECTIVE: Selvin Sebastian is a 74 year old male. CC: Chief Complaint Patient presents with Re-Check Patient states having low back pain, flank and in the front both sides. patient states wonding if kidney problems. patient statse urine stream is not as strong as it was. just a little stream now. patinet also reports more Sob. pt states the older he gets the more SOB he gets. Immunizations Shingrix Nursing Notes: Maye Larkin, TONY 03/13/20 0852 Signed Chief Complaint Patient presents with Re-Check Patient states having low back pain, flank and in the front both sides. patient states wonding if kidney problems. patient statse urine stream is not as strong as it was. just a little stream now. patinet also reports more Sob. pt states the older he gets the more SOB he gets. Patient is hard of hearing, had to remove my mask and talk in his ear. HPI: This is a 74 year old male who is very hard of hearing who comes in accompanied by his for ongoing back pain. They are both fair historians at best. He was seen here earlier this year for back pain and was referred to Dr. Merchant, who he will be seeing in a few weeks. He was not aware of this.His seems to have known this at one point, but forgot. Moreover, his tells me that he "stopped all of his medication" over the winter for "a few months." She cannot tell me why he did this.She states that he's been seeing a chiropractor for his lower back pain with minimal relief. Patient notes that his urine stream has decreased in strength. Per his last lab work, he has uncontrolled type 2 diabetes. Neither he nor his are sure about his medication, other than his insulin. Patient is very hard to communicate with due to his hearing problems. His physical exam today is relatively unremarkable. PHM: Patient Active Problem List Diagnosis Code Mixed conductive and sensorineural hearing loss of right ear with restricted hearing of left ear H90.A31 Type 2 diabetes mellitus with hemoglobin A1c goal of less than 8.0% ([facility]) E11.9 Dyslipidemia E78.5 HTN, goal below 130/80 I10 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, bilateral M21.961, M21.962 Type 2 diabetes mellitus with polyneuropathy ([facility]) E11.42 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, 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, 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 Past Surgical History: Procedure Laterality Date COLONOSCOPY 11/05 clear - repeat 10 y COLONOSCOPY, DIAGNOSTIC (RECTUM) 12/10/2015 diverticulosis, repeat 10 yrs/COLONOSCOPY FLEXIBLE PROXIMAL DIAGNOSTIC performed by Agustin Saravia MD at ENDOSCOPY [facility] FOOT/TOE SURGERY NEC 11/14 L foot deformity MASTOID SURGERY REVISION/APICECTOMY age 18 [facility] SHOULDER ARTHROSCOPY SURGERY 01/07 spur removed Family History Problem Relation Age of Onset Diabetes Uncle (Unspecified) Diabetes Uncle (Unspecified) Diabetes Aunt (Unspecified) Diabetes Aunt (Unspecified) Hypertension Mother MVA age 69 Cancer Father lung - age 54 Diabetes Brother Social History Socioeconomic History Marital status: Spouse name: Farhana Number of children: 3 Years of education: Not on file Highest education level: Not on file Occupational 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 Drug use: No Sexual activity: Not on file Lifestyle Physical activity: Days per week: Not on file Minutes per session: Not on file Stress: Not on file Relationships Social connections: Talks on phone: Not on file Gets together: Not on file Attends presybeterian service: Not on file Active member of club or organization: Not on file Attends meetings of clubs or organizations: Not on file Relationship status: Not on file Intimate partner violence: Fear of current or ex partner: Not on file Emotionally abused: Not on file Physically abused: Not on file Forced sexual activity: Not on file Other Topics Concern Not on file Social History Narrative Not on file Vaping/E-Cigarette Use Vaping/E-Cigarette Substances Vaping/E-Cigarette Devices No outpatient medications have been marked as taking for the 03/13/20 encounter (Office Visit) with Sujit Yañez MD. Review of patient's allergies indicates: Allergen Reactions Lisinopril Edema face/lips/tongue Extensive ROS Constitutional (f/c/wt/vision/hearing): Negative Resp (cough/sob/gray): Negative CV (cp/palp/fluttering/diaphoresis/gray/pnd):Negative GI (n/v/d/hrtburn): Negative Endo (hair/cold or heat intol/ 3 p's): Negative Neuro (shaking/weak/fatigu/parasthesi/): Negative Skin (rash/easy bruis/xerosis): Negative Psy (si/hi/halluc/): Negative (nocturia/hesit/drib/sexual review): see above hpi Lymph (swollen glands/b sx's/: Negative Msk: see hpi OBJECTIVE: BP 144/82 | Pulse 68 | Temp (Src) 98.6 (Tympanic) | Resp 20 | Wt 189 lbs 9.6 oz (86.002kg) | BMI 30.6 kg/m | BSA 2 m General: alert, healthy, no distress, well nourished and well developed Skin: skin color, texture, turgor are normal, no rashes or significant lesions Head: Normocephalic, No masses, lesions, tenderness or abnormalities Oropharynx: normal Eye Exam: PERRLA, EOMI, Conjunctiva are pink and non-injected, sclera clear Neck: supple, no adenopathy, no bruits, thyroid normal size, non-tender, without nodularity Heart: regular rate & rhythm, no murmurs and no gallops Lungs: chest symmetric with normal AP diameter, no chest deformities noted, no chest wall tenderness, lungs clear to auscultation Pulses: radial=2/4, carotid=2/4 w/o bruits, posterior tibial=2/4 Abdomen: abdomen soft, non-tender, normal bowel sounds, no masses or organomegaly and no CVA tenderness Extremities: no joint deformities, effusion, or inflammation, no edema, no clubbing, no cyanosis Back: + spasm of lumbar paraspinals ASSESSMENT/PLAN: Selvin was seen today for re-check and immunizations. Diagnoses and all orders for this visit: Multilevel degenerative disc disease -was prescribed mobic to take daily -seeing a chiropractor -I had to explain to patient and that a referral has been put in for him to see Dr. 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 Sujit Yañez MD * Maye Larkin LPN - 03/13/2020 9:04 AM EDT Does the patient have active shingles? No If, yes, patient must wait to receive vaccine till after rash is gone. Does the patient have an illness today with a fever more than 101?F? No Has the patient ever had a serious allergic reaction after receiving a vaccination? No Has the patient had a blood test showing they are not immune to Chicken Pox (rare)? No If yes, should get Chicken pox vaccine instead of shingrix. Shingrix Vaccine Information Sheet has been provided. Maye Larkin LPN 03/13/2020 9:04 AM IMMUNIZATION ADMINISTRATION DOCUMENTATION Time Out Procedure Performed: Yes Patient Identified (Ask Name/Date of ): Yes Patient allergic to latex?No VFC Stock? No Immunization(s) verified: Yes, Immunization Name: Shingrix, VIS Sheet(s) given: Yes Verified Side and Site: Yes Verified Shot(s) with Parent(s)/Patient: Yes Shingrix was administered per clinic protocol. Patient received the Shingrix VIS (Vaccine Information Sheet). Maye Larkin LPN, 03/13/2020, 9:04 AM documented in this encounter Nursing Notes * Maye Larkin LPN - 03/13/2020 8:48 AM EDT Chief Complaint Patient presents with Re-Check Patient states having low back pain, flank and in the front both sides. patient states wonding if kidney problems. patient statse urine stream is not as strong as it was. just a little stream now. patinet also reports more Sob. pt states the older he gets the more SOB he gets. Patient is hard of hearing, had to remove my mask and talk in his ear. documented in this encounter Plan of Treatment Upcoming Encounters Date Type Specialty Care Team Description 03/13/2020 Imaging Radiology 04/03/2020 Office Visit Pain Management [facility], Avtar Mitchell, [address] [place] [address] [phone] Pending Results Name Type Priority Associated Diagnoses Date /Time BASIC METAB PANEL, BMP Lab Routine HTN, goal below 130/80 03/13/2020 9:26 AM EDT PSA Lab Routine Screening PSA (prostate specific antigen) 03/13/2020 9:26 AM EDT Scheduled Orders Name Type Priority Associated Diagnoses Orde r Schedule BASIC METAB PANEL, BMP Lab Routine HTN, goal below 130/80 Expected: 03/13/2020 (Approximate), Expires: 03/13/2021 PSA Lab Routine Screening PSA (prostate specific antigen) Expected: 03/13/2020 (Approximate), Expires: 03/13/2021 ALBUMIN / CREATININE RATIO, URINE Lab Routine Type 2 diabetes mellitus with hemoglobin A1c goal of less than 8.0% (HCC) Expected: 03/13/2020 (Approximate), Expires: 03/13/2021 RENAL Medical Imaging Routine Flank pain Ordered: 03/13/2020 Health Maintenance Due Date Last Done Comments [...] as of this encounter Visit Diagnoses Diagnosis Multilevel degenerative disc disease- Primary Degeneration of intervertebral disc, site unspecified BPH with obstruction/lower urinary tract symptoms Hypertrophy of prostate with urinary obstruction and other lower urinary tract symptoms (LUTS) Mixed obsessional thoughts and acts HTN, goal below 130/80 Unspecified essential hypertension Type 2 diabetes mellitus with hemoglobin A1c goal of less than 8.0% (HCC) Type 2 diabetes mellitus with polyneuropathy (HCC) Type II or unspecified type diabetes mellitus with neurological manifestations, not stated as uncontrolled Dyslipidemia Other and unspecified hyperlipidemia 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
--- OUTSIDE RECORDS SUMMARY | 2023-07-31 20:35 | External Medical Summary | Summary of Care ---
Author Name Unknown Organization [place] [address] Care Team Providers Care Peoples[employer] Financ[employer] Consultant Name Role Phone Yariel Mariavor Sophy Primary Care Provider Encounter Details Date Type Department Care Team Description 03/13/2020 Telephone Family Practice [facility] 132 [facility] [place] [address] Sujit Yañez MD 132 [facility] [place] [address] Allergies Active Allergy Reactions Severity Noted [...] 100 Each 6 08/24/2017 Active Glucose Blood (ConsiderCTOUCH VERIO) STRP Use up to 4 times a day E11.9 300 Strip 3 08/24/2017 Active aspirin enteric coated 81 MG TBECIndications:Typ e 2 diabetes mellitus with diabetic neuropathy, unspecified (HCC) Take 1 Tab by mouth daily. 100 Tab 3 02/10/2018 Active Blood Glucose Monitoring Suppl (ConsiderCTOUCH VERIO) w/Device KITIndications:Type 2 diabetes mellitus with [...] Telephone Encounter - Carolyn Garcia LPN - 03/14/2020 9:54 AM EDT Left message on pt's cell * Telephone Encounter - Sujit Yañez MD - 03/13/2020 6:03 PM EDT Kidneys look fine on ultrasound. Please let patient know. documented in this encounter Plan of Treatment Upcoming Encounters Date Type Specialty Care Team Description 04/03/2020 Office Visit Pain Management Avtar Merchant, DO [address] [place] [address] [phone] Health Maintenance Due Date Last Done Comments [...] Documents on File Type Date Recorded Patient Screw Machine Adjuster Automatic Expl anation Advanced Directive service a hi default Advanced Directive Advanced Directive Advanced Directive Advanced Directive Advanced Directive Advanced Directive
--- OUTSIDE RECORDS SUMMARY | 2023-07-31 20:35 | External Medical Summary | Summary of Care ---
Author Name Unknown Organization [place] [address] Care Team Providers Care Machine Trimmer Name Role Phone Rylan Mariar Sophy Primary Care Provider Encounter Details Date Type Department Care Team Description 02/16/2020 Ski MakerWindow Decorator Practice [facility] [address] [place] [address] Rani Knott RN 195 [facility] [address] [place] [address] [phone] HTN, goal below 140/90* Allergies Active Allergy Reactions Severity Noted Date Comments Lisinopril Edema face/lips/tongue High 04/05/2018 documented as of this encounter (statuses as of 02/22/2020) Medications Medication Sig Dispensed Refills Start Date End Date Status ciprofloxacin-dexam ethasone (CIPRODEX) 0.3-0.1 % otic suspensionIndicatio ns:Mixed hearing loss, unilateral,Chronic mastoiditis,Otitis media 4 DROPS RIGHT EAR ASNEEDED IF WATER GETS IN EAR 7.5 mL 3 01/29/2016 Active Blood Glucose Monitoring Suppl (American Addiction CentersTOUCH ULTRA SYSTEM) W/DEVICE KIT Use as directed [...] 100 Each 6 08/24/2017 Active Glucose Blood (opendorseUCH VERIO) STRP Use up to 4 times a day E11.9 300 Strip 3 08/24/2017 Active aspirin enteric coated 81 MG TBECIndications:Typ e 2 diabetes mellitus with diabetic neuropathy, unspecified (HCC) Take 1 Tab by mouth daily. 100 Tab 3 02/10/2018 Active Blood Glucose Monitoring Suppl (American Addiction CentersTOUCH VERIO) w/Device KITIndications:Type 2 diabetes mellitus with [...] as of this encounter (statuses as of 02/22/2020) Active Problems Problem Noted Date Tympanic membrane [...] as of this encounter (statuses as of 02/22/2020) Resolved Problems Problem Noted Date Resolved Date [...] as of this encounter (statuses as of 02/22/2020) Immunizations Name Administration Dates Next Due Pneumococcal [...] PM EDT documented as of this encounter Progress Notes * Rani Knott RN - 02/16/2020 2:35 PM EDT Case Management Assessment Is this call for a hospital, half-way or rehab facility discharge to home? No S: Reports: spoke with Farhana, very limited with information. Reports that patient's pain has improved with going to the chiropractor. Just leaving an appointment now. She reports that he is a lot better today. Would like to keep appointment with Dr Maria next week and get second shingles shot. does not know if he is taking his BSG's or not, last HgbA1c was 11.5. O: Phone visit for 3 month FU. Medications: unclear if he is taking medications as directed. A: Patient Centered Prioritized Goals: Patient and caregiver demonstrate basic understanding of their disease process. Identified Barriers: spoke with and not patient. , Non Adherence to prescribed treatment plan,Patient/caregiver's lack of understanding of their condition and prescribed treatment plan, Lack ofmotivation and Older than 70 years FUNCTIONAL STATUS: (Definition - assess ability to patient to manage their own care, includes evaluation of activities of daily living, and instrumental activities of daily living, and cognitive abilities status) ADL'S - Needs Assistance With: N/A as pt is independent IADL'S - Needs Assistance With: N/A as pt is independent Cognitive and Mental Health: alert and oriented x 3 and able to communicate, understand instructions, process information. P: Ski Maker Interventions: discussed upcoming appointment, prefers office visit. Reinforced safety education / fall prevention Reinforced medication regimen - timing / dosing / purpose Will require additional education related to diabetes, has cancelled any follow up with MTM as wellfor DM. PCP Notified of enrollment in CM/HM program: Yes SNP Member? No Re-evaluation of plan of care and progress towards goals achievement: Plan to call patient in ~3 months to reassess and update plan of care, instructed to call Ski Maker or Primary Care Provider with change in symptoms or as needed before next follow-up Rani Knott RN (Kori), BSN, [facility] Ski Maker [phone] documented in this encounter Plan of Treatment Upcoming Encounters Date Type Specialty Care Team Description 03/12/2020 Office Visit Family Medicine James Maria, [address] [place] [address] [phone] 04/03/2020 Office Visit Pain Management Avtar Merchant, [address] [place] [address] [phone] Health Maintenance Due Date Last Done Comments [...] encounter Visit Diagnoses Diagnosis HTN, goal below 140/90- Primary Unspecified essential hypertension documented in this encounter Advance Directives Documents on File Type Date Recorded Patient Director Of Epidemiology Expl anation Advanced Directive service a hi default Advanced Directive Advanced Directive Advanced Directive Advanced Directive Advanced Directive
--- OUTSIDE RECORDS SUMMARY | 2023-07-31 20:35 | External Medical Summary | Summary of Care ---
Author Name Unknown Organization [place] [address] Care Team Providers Care New Patient Escort Name Role Phone James Maria DO Primary Care Provider Reason for Visit * Reason Comments Appointment appt rxd Encounter Details Date Type Department Care Team Description 02/22/2020 Telephone Family Practice [facility] [address] [place] [address] James Maria DO 132 [facility] [place] [address] [phone] Appointment (appt rxd ) Allergies Active Allergy Reactions Severity Noted [...] 3 01/29/2016 Active Blood Glucose Monitoring Suppl (Bubble Gum InteractiveTOUCH ULTRA SYSTEM) W/DEVICE KIT Use as directed 4 times a day as needed for Hyperglycemia (high sugar) or Hypoglycemia (low sugar). Use up to four times a day as directed 1 Kit 0 01/29/2016 Active PurchUCH ULTRA BLUE STRP USE TO CHECK GLUCOSE 4 TIMES DAILY 100 Strip 0 11/13/2016 Active Bubble Gum InteractiveTOUCH DELICA LANCETS 33G MISC USE ONE TO [...] 100 Each 6 08/24/2017 Active Glucose Blood (Bubble Gum InteractiveTOUCH VERIO) STRP Use up to 4 times a day E11.9 300 Strip 3 08/24/2017 Active aspirin enteric coated 81 MG TBECIndications:Typ e 2 diabetes mellitus with diabetic neuropathy, unspecified (HCC) Take 1 Tab by mouth daily. 100 Tab 3 02/10/2018 Active Blood Glucose Monitoring Suppl (Bubble Gum InteractiveTOUCH VERIO) w/Device KITIndications:Type 2 diabetes mellitus with [...] Miscellaneous Notes * Telephone Encounter - Chanell Lo OSA - 02/22/2020 9:36 AM EDT Patient has been notified of the message. Patient has no further questions. * Telephone Encounter - Roxanne Benavides OSA - 02/22/2020 8:59 AM EDT Called and left message on HIPAA compliant voicemail for patient changing their appointment time to[address] Maria at [facility]. documented in this encounter Plan of Treatment Upcoming Encounters Date Type Specialty Care Team Description 03/12/2020 Office Visit Family Medicine James Maria, 132 [facility] [place] [address] [phone] 04/03/2020 Office Visit Pain Management Cousins, Avtar Mitchell, DO [address] [place] [address] [phone] Health Maintenance Due Date Last Done Comments [...] Documents on File Type Date Recorded Patient Epic Trainer Expl anation Advanced Directive service a hi default Advanced Directive Advanced Directive Advanced Directive Advanced Directive Advanced Directive
--- OUTSIDE RECORDS SUMMARY | 2023-07-31 20:35 | External Medical Summary | Summary of Care ---
Author Name Unknown Organization [place] [address] Care Team Providers Care Gluer Machine Operator Name Role Phone Rylan Mariar Sophy Primary Care Provider Reason for Visit * Reason Comments Referral Encounter Details Date Type Department Care Team Description 12/15/2019 Telephone Family Practice [facility] [address] [place] [address] Shani Gao PA-C [address] [facility] [place] [address] Referral Allergies Active Allergy Reactions Severity Noted Date Comments Lisinopril Edema face/lips/tongue High 04/05/2018 documented as of this encounter (statuses as of 02/10/2020) Medications Medication Sig Dispensed Refills Start Date End Date Status ciprofloxacin-dexam ethasone (CIPRODEX) 0.3-0.1 % otic suspensionIndicatio ns:Mixed hearing loss, unilateral,Chronic mastoiditis,Otitis media 4 DROPS RIGHT EAR ASNEEDED IF WATER GETS IN EAR 7.5 mL 3 01/29/2016 Active Blood Glucose Monitoring Suppl (brotipsTOUCH ULTRA SYSTEM) W/DEVICE KIT Use as directed [...] 100 Each 6 08/24/2017 Active Glucose Blood (brotipsTOUCH VERIO) STRP Use up to 4 times a day E11.9 300 Strip 3 08/24/2017 Active aspirin enteric coated 81 MG TBECIndications:Typ e 2 diabetes mellitus with diabetic neuropathy, unspecified (HCC) Take 1 Tab by mouth daily. 100 Tab 3 02/10/2018 Active Blood Glucose Monitoring Suppl (brotipsTOUCH VERIO) w/Device KITIndications:Type 2 diabetes mellitus with [...] as of this encounter (statuses as of 02/10/2020) Active Problems Problem Noted Date Tympanic membrane [...] as of this encounter (statuses as of 02/10/2020) Resolved Problems Problem Noted Date Resolved Date Need for prophylactic vaccin ation and inoculation against influenza 10/21/2018 02/09/2020 Overview: Acute. Neurogenic ulcer of foot 05/19/2017 07/20/2 017 [...] as of this encounter (statuses as of 02/10/2020) Immunizations Name Administration Dates Next Due Pneumococcal [...] Miscellaneous Notes * Telephone Encounter - Gabriela Coronado OSA - 12/15/2019 12:58 PM EST [facility] [facility] [place] * Telephone Encounter - Luly Padilla LPN - 12/15/2019 12:53 PM EST Farhana aware and verbalized understanding, will comply They would to be set up with [facility] in [place] for PT * Telephone Encounter - Shani Gao PA-C - 12/15/2019 12:06 PM EST Please call pt and inform Farhana (pt cannot hear well) that xray showed multilevel degenerative changes (changes over time). No acute fractures. Still recommend go ahead with PT. XR T SPINE AP AND LATERAL Narrative: EXAM XR T SPINE AP AND LATERAL-12/15/2019 11:18 am HISTORY midline mid thoracic back pain over a month, worsening. no acute injury. COMPARISON None TECHNIQUE AP, lateral, swimmer's views thoracic spine FINDINGS Convex left curvature upper thoracic spine. No radiographically apparent fracture. Multilevel endplate osteophytes. Impression: IMPRESSION 1. Multilevel degenerative change of the spine. documented in this encounter Plan of Treatment Upcoming Encounters Date Type Specialty Care Team Description 02/23/2020 Office Visit Family Medicine James Maria DO [address] [facility] [place] [address] 03/21/2020 Office Visit Podiatry Region, [facility] [address] [place] [address] [phone] 04/03/2020 Office Visit Pain Management Avtar Merchant, DO [address] [place] [address] [phone] Health Maintenance Due Date Last Done Comments [...] Documents on File Type Date Recorded Patient Cell Repairer Expl anation Advanced Directive service a hi default Advanced Directive Advanced Directive Advanced Directive Advanced Directive Advanced Directive
--- OUTSIDE RECORDS SUMMARY | 2023-07-31 20:35 | External Medical Summary | Summary of Care ---
Author Name Unknown Organization [place] [address] Care Team Providers Care Welder Fabricator Name Role Phone James Maria DO Primary Care Provider Reason for Visit * Reason Comments Appointment appt rxd Encounter Details Date Type Department Care Team Description 02/22/2020 Telephone Family Practice [facility] [address] [place] [address] James Maria DO 132 [facility] [place] [address] [phone] Appointment (appt rxd ) Allergies Active Allergy [...] 3 01/29/2016 Active Blood Glucose Monitoring Suppl (ParAccelTOUCH ULTRA SYSTEM) W/DEVICE KIT Use as directed 4 times a day as needed for Hyperglycemia (high sugar) or Hypoglycemia (low sugar). Use up to four times a day as directed 1 Kit 0 01/29/2016 Active PicolightUCH ULTRA BLUE STRP USE TO CHECK GLUCOSE 4 TIMES DAILY 100 Strip 0 11/13/2016 Active ParAccelTOUCH DELICA LANCETS 33G MISC USE ONE TO [...] 100 Each 6 08/24/2017 Active Glucose Blood (ParAccelTOUCH VERIO) STRP Use up to 4 times a day E11.9 300 Strip 3 08/24/2017 Active aspirin enteric coated 81 MG TBECIndications:Typ e 2 diabetes mellitus with diabetic neuropathy, unspecified (HCC) Take 1 Tab by mouth daily. 100 Tab 3 02/10/2018 Active Blood Glucose Monitoring Suppl (ParAccelTOUCH VERIO) w/Device KITIndications:Type 2 diabetes mellitus with [...] voicemail for patient changing their appointment time [phone] [facility] at [facility]. documented in this encounter Plan of Treatment Upcoming Encounters Date Type Specialty Care Team Description 03/12/2020 Office Visit Family Medicine James Maria, [address] [place] [address] [phone] 04/03/2020 Office Visit Pain Management Avtar Merchant, DO [address] [place] [address] [phone] Health Maintenance Due Date Last Done Comments [...] on File Type Date Recorded Patient Community Service Organization Director Expl anation Advanced Directive service a hi default Advanced Directive Advanced Directive Advanced Directive Advanced Directive Advanced Directive
--- OUTSIDE RECORDS SUMMARY | 2023-07-31 20:35 | External Medical Summary | Summary of Care ---
Author Name Unknown Organization [facility] Address [place] [address] Care Team Providers Care Diamond Setter Name Role Phone James Maria DO Primary Care Provider Reason for Visit * Reason Comments Appointment msg left Encounter Details Date Type Department Care Team Description 03/09/2020 Telephone Family Practice [facility] [address] [facility] [place] [address] James Maria DO 132 [facility] [place] [address] [phone] Appointment (msg left ) Allergies Active Allergy [...] 3 01/29/2016 Active Blood Glucose Monitoring Suppl (CollabspotUCH ULTRA SYSTEM) W/DEVICE KIT Use as directed 4 times a day as needed for Hyperglycemia (high sugar) or Hypoglycemia (low sugar). Use up to four times a day as directed 1 Kit 0 01/29/2016 Active CollabspotUCH ULTRA BLUE STRP USE TO CHECK GLUCOSE 4 TIMES DAILY 100 Strip 0 11/13/2016 Active CollabspotUCH DELICA LANCETS 33G MISC USE ONE TO [...] 100 Each 6 08/24/2017 Active Glucose Blood (Ad InfuseTOUCH VERIO) STRP Use up to 4 times a day E11.9 300 Strip 3 08/24/2017 Active aspirin enteric coated 81 MG TBECIndications:Typ e 2 diabetes mellitus with diabetic neuropathy, unspecified (HCC) Take 1 Tab by mouth daily. 100 Tab 3 02/10/2018 Active Blood Glucose Monitoring Suppl (Ad InfuseTOUCH VERIO) w/Device KITIndications:Type 2 diabetes mellitus with [...] Yañez MD [address] [place] [address] [phone] 04/03/2020 Office Visit Pain Management BabarAvtar davidDO [address] [place] [address] [phone] Health Maintenance Due Date Last Done Comments [...] on File Type Date Recorded Patient Assistant District Attorney Expl anation Advanced Directive service a hi default Advanced Directive Advanced Directive Advanced Directive Advanced Directive Advanced Directive
--- OUTSIDE RECORDS SUMMARY | 2023-07-31 20:36 | External Medical Summary | Summary of Care ---
Author Name Unknown Organization [place] [address] Care Team Providers Care Sound Installation Worker Name Role Phone James Maria DO Primary Care Provider Reason for Visit * Reason Comments NEW PATIENT hearing * Evaluate & Treat - Unlimited Visits (Within 10 days (routine)) Status Reason Specialty Diagnoses / Procedures Referred By Contact Referred To Contact Authorized Specialty Services Required Otolaryngology Diagnoses Mixed conductive and sensorineural hearing loss of both ears James Maria DO 132 [facility] [place] [address] Encounter Details Date Type Department Care Team Description 12/05/2019 Office Visit Otolaryngology [facility] 132 [facility] [place] [address] Del Multani II, MD 132 [facility] [place] [address] Tympanic membrane perforation, right*; Deafness, left; Mixed conductive and sensorineural hearing loss of right ear with restricted hearing of left ear; Impacted cerumen of right ear Allergies Active Allergy Reactions Severity Noted Date Comments Lisinopril Edema face/lips/tongue High 04/05/2018 documented as of this encounter (statuses as of 12/05/2019) Medications Medication Sig Dispensed Refills Start Date End Date Status ciprofloxacin-dexam ethasone (CIPRODEX) 0.3-0.1 % otic suspensionIndicatio ns:Mixed hearing loss, unilateral,Chronic mastoiditis,Otitis media 4 DROPS RIGHT EAR ASNEEDED IF WATER GETS IN EAR 7.5 mL 3 01/29/2016 Active Additional Information Patient not taking. Reported on 10/13/2019 8:44 AM Blood Glucose Monitoring Suppl (ONETOUCH ULTRA [...] as of this encounter (statuses as of 12/05/2019) Active Problems Problem Noted Date Tympanic membrane [...] as of this encounter (statuses as of 12/05/2019) Resolved Problems Problem Noted Date Resolved Date [...] as of this encounter (statuses as of 12/05/2019) Immunizations Name Administration Dates Next Due Pneumococcal [...] Travel End documented as of this encounter Last Filed Vital Signs Vital Sign Reading Time Taken Comments Blood Pressure - - Pulse - - Temperature 37 C (98.6 F) 12/05/2019 1:28 PM EST Respiratory Rate - - Oxygen Saturation - - Inhaled Oxygen Concentration - - Weight 85.5 kg (188 lb 9.6 oz) 12/05/2019 1:28 P M EST Height 167.6 cm (5' 6") 12/05/2019 1:28 PM EST Body Mass Index 30.44 12/05/2019 1:28 PM EST documented in this encounter Progress Notes * Del Multani II, MD - 12/05/2019 2:26 PM EST Nursing Notes: Radha Fiore LPN 12/05/19 1333 Signed Chief Complaint Patient presents with NEW PATIENT hearing Selvin Sebastian is a 74 year old male who presents today for evaluation of hearing loss. He has no hearing to his left ear. He lost hearing to his left ear at the age of 19. He reports that he had aninfection to his left ear and he had a procedure done. He started to lose hearing to his right ear 1+ month ago. He is having clear drainage from ear with intermittent pain and tinnitus. He denies trauma to right ear. He is accompanied by in exam room. I REVIEWED NOTES GOING BACK TO [address] PALUMBO Problem List Patient Active Problem List Diagnosis Code ADVANCE DIRECTIVE INFORMATION Mixed conductive and sensorineural hearing loss of right ear with restricted hearing of left ear H90.A31 Deafness, left H91.92 Otitis media H66.90 Chronic mastoiditis H70.10 Type 2 diabetes mellitus with hemoglobin A1c goal of less than 8.0% ([facility]) E11.9 DYSLIPIDEMIA, GOAL LDL BELOW 100 E78.5 OBESITY, BMI 30-34 (SEE ACTUAL BMI) E66.9 HTN, goal below 140/90 I10 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 Need for prophylactic vaccination and inoculation against influenza Z23 DM type 2 nursing care encounter ([facility]) E11.9 Foot deformity, bilateral M21.961, M21.962 Type 2 diabetes mellitus with polyneuropathy ([facility]) E11.42 Obsessive-compulsive disorder, unspecified F42.9 Tympanic membrane perforation, right H72.91 Past Medical History: Diagnosis Date Allergic rhinitis 2004 Chronic mastoiditis 2004 Diabetes mellitus ([facility]) Dysfunction of eustachian tube 2004 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 Otitis media 2004 Sensorineural hearing loss, unilateral 2004 left Past Surgical History: Procedure Laterality Date COLONOSCOPY 11/05 clear - repeat 10 y COLONOSCOPY, DIAGNOSTIC (RECTUM) 12/10/2015 diverticulosis, repeat 10 yrs/COLONOSCOPY FLEXIBLE PROXIMAL DIAGNOSTIC performed by Agustin Saravia MD at END[facility] FOOT/TOE SURGERY NEC 11/14 L foot deformity MASTOID SURGERY REVISION/APICECTOMY age 18 [facility]G[place] 01/07 spur removed Medications Current Outpatient Medications Medication Sig Dispense Refill cyclobenzaprine (FLEXERIL) 5 MG Tablet Take 1 Tab by mouth 3 times a day as needed for Muscle spasms. 30 Tab 0 insulin isophane human (NOVOLIN [...] dosing E11.9 1 Box Dosing Unit 3 amLODIPine (NORVASC) 5 MG Tablet Take 1 Tab by mouth daily. 90 Tab 3 atorvaSTATin (LIPITOR) 40 MG Tablet Take 1 Tab by mouth daily. 90 Tab 3 MetFORMIN (GLUCOPHAGE) 1000 MG Tablet TAKE ONE TABLET BY MOUTH TWICE DAILY WITH MORNING AND EVENINGMEALS 180 Tab 3 NOVOLOG FLEXPEN 100 UNIT/ML SOPN INJECT 5 UNITS SUBCUTANEOUSLY THREE TIMES DAILY WITH MEALS 15 mL 3 tamsulosin (FLOMAX) 0.4 MG Capsule Take 1 Cap by mouth daily. 90 Cap 3 Blood Glucose Monitoring Suppl (Poll EverywhereTOUCH VERIO) w/Device KIT Use as directed. Recommend check glucose levels at least 2 times daily-once in AM before breakfast and once 2 hours after evening meal. 1 Kit 0 aspirin enteric coated 81 MG TBEC Take 1 Tab by mouth daily. 100 Tab 3 Glucose Blood (Poll EverywhereTOUCH VERIO) STRP Use up to 4 times [...] IN EAR (Patient not taking: Reported on 10/13/2019) 7.5 mL 3 Allergies Review of patient's [...] Last attempt to quit: 11/02/1980 Years since quittin.1 Smokeless tobacco: Never Used Substance Use Topics Alcohol use: Yes Alcohol/week: 0.0 standard drinks Comment: As of 12.19.2006, the last noted alcohol intake was 1 ounces. Physical Examination: Temp (Src) 98.6 (Tympanic) | Ht 5' 6" (1.676m) | Wt 188 lbs 9.6 oz (85.548kg) | BMI 30.44 kg/m | BSA 2 m EARS WERE EXAMINED USING THE OPERATING MICROSCOPE RIGHT EAR HAD INSPISSATED PUS AND FIRM CERUMEN REMOVED BY ME USING MICROSURGICAL TECHNIQUE USING A #5 SUCTION AND ALLIGATOR. AFTER THIS REMOVAL, A ISABEL TYMPANIC MEMBRANE PERFORATION WAS SEEN WITH MINIMALLY HYPERTROPHIED MIDDLE EAR MUCOSA. LEFT EAR HAD AN INTACT AND COMPLETELY OPAQUE TM AUDIOGRAM SHOWED NO USEFUL HEARING IN THE LEFT EAR WITH A MODERATE TO PROFOUND MIXED HEARING LOSS IN THE RIGHT EAR. HE HAD 50% 52% DISCRIMINATION IN THE RIGHT EAR AT 100 DECIBELS. +++++++ PATIENT WAS INVOLVED IN A VERBAL ALTERCATION WITH HIS IN BETWEEN HIS AUDIOGRAM AND MY RETURN FOR DISCUSSION. HE STORMED OUT OPF THE OFFICE NEVER AFFORDING ME AN OPPORTUNITY TO PROVIDE GROCERY CADDY. Given all of the above, the assessment [...] documented in this encounter Nursing Notes * Radha Fiore LPN - 12/05/2019 1:28 PM EST Chief Complaint Patient presents with NEW PATIENT hearing Selvin Sebastian is a 74 year old male who presents today for evaluation of hearing loss. He has no hearing to his left ear. He lost hearing to his left ear at the age of 19. He reports that he had aninfection to his left ear and he had a procedure done. He started to lose hearing to his right ear 1+ month ago. He is having clear drainage from ear with intermittent pain and tinnitus. He denies trauma to right ear. He is accompanied by in exam room. documented in this encounter Plan of Treatment Upcoming Encounters Date Type Specialty Care Team Description 12/15/2019 [place] [facility] [place] [address] [place] [address] 02/23/2020 Office Visit Family Medicine James Maria DO [address] [facility] [place] [address] Scheduled Orders Name Type Priority Associated Diagnoses Orde r Schedule REMOVE IMPACTED EAR WAX W/ INSTRUMENT, ONE EAR Procedures Routine Impacted cerumen of right ear Ordered: 12/05/2019 AUDIOLOGY LAB Procedures Routine Deafness, left Mixed conductive and sensorineural hearing loss of right ear with restricted hearing of left ear Tympanic membrane perforation, right Ordered: 12/05/2019 Health Maintenance Due Date Last Done Comments DIABETES-EYE EXAM 06/30/2017 06/30/2016, , 03/02/2011 (Done elsewhere), Additional history exists DIABETES-URINE MICROALBUMIN EVERY 12 MONTHS 12/13/2019 12/13/2018, 01/11/2018, 12/24/2015, Additional history exists Zoster Vaccines (3 of 3) 01/16/2020 11/21/2019, 12/2011 DIABETES-HGBA1C EVERY 6 MONTHS 05/16/2020 11/16/2019, 12/13/2018, 01/11/2018, Additional history exists DIABETES-FOOT EXAM 10/13/2020 10/13/2019, 0 06/07/2018, 05/13/2017, Additional history exists Yearly B-12 11/16/2020 11/16/2019, 01/11/2018 DTaP,Tdap,and Td Vaccines (2 - Td) 10/21/2021 10/21/2011, 11/09/2003 Pneumococcal Vaccine: 65+ Years Completed 12/24/2015, 07/23/2011 Influenza Vaccine (FLU shot) Completed , 10/21/2018, 09/10/2017, Additional history exists MENINGOCOCCAL (MENACTRA/MENVEO) Aged Out No longer eligible based on patient's age to complete this topic documented as of this encounter Implants Not on filedocumented as of this encounter Visit Diagnoses Diagnosis Tympanic membrane perforation, right- Primary Deafness, left Mixed conductive and sensorineural hearing loss of right ear with restricted hearing of left ear Impacted cerumen of right ear Impacted cerumen documented in this encounter Advance Directives Documents on File Type Date Recorded Patient Vendor Analyst Expl anation Advanced Directive service a hi default Advanced Directive Advanced Directive Advanced Directive Advanced Directive Advanced Directive
--- OUTSIDE RECORDS SUMMARY | 2023-07-31 20:36 | External Medical Summary | Summary of Care ---
Author Name Unknown Organization [place] [address] Care Team Providers Care Environmental Attorney Name Role Phone James Maria DO Primary Care Provider Reason for Referral * Evaluate & Treat - Unlimited Visits (Within 10 days (routine)) Status Reason Specialty Diagnoses / Procedures Referred By Contact Referred To Contact Authorized Specialty Services Required Audiology Diagnoses Mixed conductive and sensorineural hearing loss of both ears James [facility] DO [address] [facility] [place] [address] * Evaluate & Treat - Unlimited Visits (Within 10 days (routine)) Status Reason Specialty Diagnoses / Procedures Referred By Contact Referred To Contact Authorized Specialty Services Required Otolaryngology Diagnoses Mixed conductive and sensorineural hearing loss of both ears James Maria DO [address] [facility] [place] [address] Reason for Visit * Reason Comments Follow Up 1 month return, low back pain for a few weeks, right ear drainage Immunizations Shingrix Encounter Details Date Type Department Care Team Description 11/21/2019 Office Visit [facility] [address] [place] [address] James Maria DO [address] [place] [address] [phone] Need for vaccination for zoster*; Type 2 diabetes mellitus with polyneuropathy (HCC); DM type 2 nursing care encounter (HCC); HTN, goal below 140/90; Dyslipidemia, goal LDL below 100; Type 2 diabetes mellitus with hemoglobin A1c goal of less than 8.0% (HCC); Mixed conductive and sensorineural hearing loss of both ears; Chronic right-sided low back pain without sciatica Allergies Active Allergy Reactions Severity Noted Date Comments Lisinopril Edema face/lips/tongue High 04/05/2018 documented as of this encounter (statuses as of 11/21/2019) Medications Medication Sig Dispensed Refills Start Date End Date Status ciprofloxacin-dexam ethasone (CIPRODEX) 0.3-0.1 % otic suspensionIndicatio ns:Mixed hearing loss, unilateral,Chronic mastoiditis,Otitis media 4 DROPS RIGHT EAR ASNEEDED IF WATER GETS IN EAR 7.5 mL 3 6 Active Additional information Patient not taking. Reported on 10/13/2019 8:44 AM Blood Glucose Monitoring Suppl (Balls.ie ULTRA SYSTEM) W/DEVICE KIT Use as directed [...] Dysfunction. 5 Tab 6 7 Active Additional information Patient not taking. Reported on 10/13/2019 8:44 [...] 3 8 Active Blood Glucose Monitoring Suppl (AvisenaTOUCH VERIO) w/Device KITIndications:Type 2 diabetes mellitus with hemoglobin A1c goal of 7.0%-8.0% (HCC) Use as directed. Recommend check glucose levels at least 2 times daily-once in AM before breakfast and once 2 hours after evening meal. 1 Kit 0 8 Active amLODIPine (NORVASC) 5 MG Tablet Take 1 Tab by mouth daily. 90 Tab 3 9 Active atorvaSTATin (LIPITOR) 40 MG Tablet Take 1 Tab by mouth daily. 90 Tab 3 9 Active MetFORMIN (GLUCOPHAGE) 1000 MG TabletIndications:T ype 2 diabetes mellitus with hemoglobin A1c goal of less than 7.0% (HCC) TAKE ONE TABLET BY MOUTH TWICE DAILY WITH MORNING AND EVENING MEALS 180 Tab 3 9 Active tamsulosin (FLOMAX) 0.4 MG Capsule Take 1 Cap by mouth daily. 90 Cap 3 9 Active NOVOLOG FLEXPEN 100 UNIT/ML SOPNIndications:Typ e 2 diabetes mellitus with hemoglobin A1c goal of less than 7.0% (HCC) INJECT 5 UNITS SUBCUTANEOUSLY THREE TIMES DAILY WITH MEALS 15 mL 3 9 Active Insulin Syringe-Needle U-100 (RELION INSULIN SYRINGE) 30G X 5/16" 0.3 ML MISCIndications:Typ e 2 diabetes mellitus with polyneuropathy (HCC),Type 2 diabetes mellitus with hemoglobin A1c goal of less than 8.0% (HCC) Use up to 4 x a day for insulin dosing E11.9 1 Box Dosing Unit 3 9 Active zoster vac recomb adjuvanted (SHINGRIX) 50 MCG/0.5ML injectionIndication s:Need for vaccination for zoster Inject 0.5 mL into a large muscle now and repeat dose in 60 to 180 days 1 Each 1 0 Active cyclobenzaprine (FLEXERIL) 5 MG TabletIndications:C hronic right-sided low back pain without sciatica Take 1 Tab by mouth 3 times a day as needed for Muscle spasms. 30 Tab 0 0 Active insulin isophane human (NOVOLIN N RELION) 100 UNIT/ML injectionIndication s:Type 2 diabetes mellitus with polyneuropathy (HCC) Inject 35 Units under the skin at bedtime. 4 Vial 5 0 Active insulin REGULAR human (NOVOLIN R RELION) 100 UNIT/ML injectionIndication s:Type 2 diabetes mellitus with polyneuropathy (HCC) Inject 5 Units under the skin three times a day before meals. 4 Vial 3 0 Active ONETOUCH DELICA LANCETS 33G MISC Use 3 times daily for checking blood sugars 100 Each 3 7 11/21/19 Discontinu ed(Patient preference /discontin uation) insulin REGULAR human (NOVOLIN R RELION) 100 UNIT/ML injectionIndication s:Type 2 diabetes mellitus with polyneuropathy (HCC) Inject 5 Units under the skin three times a day before meals. 1 Vial 3 9 11/21/19 Discontinu ed(Refill) insulin isophane human (NOVOLIN N RELION) 100 UNIT/ML injectionIndication s:Type 2 diabetes mellitus with polyneuropathy (HCC) Inject 35 Units under the skin at bedtime. 1 Vial 5 9 11/21/19 Discontinu ed(Refill) insulin isophane human (NOVOLIN N RELION) 100 UNIT/ML injectionIndication s:Type 2 diabetes mellitus with polyneuropathy (HCC) Inject 35 Units under the skin at bedtime. 4 Vial 5 0 11/21/19 Discontinu ed(Refill) insulin REGULAR human (NOVOLIN R RELION) 100 UNIT/ML injectionIndication s:Type 2 diabetes mellitus with polyneuropathy (HCC) Inject 5 Units under the skin three times a day before meals. 4 Vial 3 0 11/21/19 Discontinu ed(Refill) documented as of this encounter (statuses as of 11/21/2019) Active Problems Problem Noted Date Obsessive-compulsive disorder, unspecifi ed 11/21/2019 Type 2 [...] INFORMATION 07/15/2006 Overview: Pt took booklet. Mixed hearing loss, unilateral Overview: right Sensorineural hearing loss, unilateral Overview: left Otitis media Chronic mastoiditis documented as of this encounter (statuses as of 11/21/2019) Resolved Problems Problem Noted Date Resolved Date [...] as of this encounter (statuses as of 11/21/2019) Immunizations Name Administration Dates Next Due Pneumococcal [...] Sign Reading Time Taken Comments Blood Pressure 126/74 11/21/2019 11:46 AM EST Pulse 80 11/21/2019 11:46 AM EST Temperature 36.5 C (97.7 F) 11/21/2019 11:[address] Respiratory Rate 20 11/21/2019 11:46 AM EST Oxygen Saturation - - Inhaled Oxygen Concentration - - Weight 83.5 kg (184 lb) 11/21/2019 11:46 AM EST Height - - Body Mass Index 29.7 10/13/2019 8:41 AM EST documented in this encounter Progress Notes * James Maria DO - 11/21/2019 11:53 AM EST Nursing Notes: Rita Grossman LPN 11/21/19 1152 Signed The patient has been properly identified by confirmation of name and date of . Chief Complaint Patient presents with Follow Up 1 month return, low back pain for a few weeks, right ear drainage ASSESSMENT/PLAN: 1. Type 2 diabetes mellitus with polyneuropathy (HCC) Slightly improved A1C, 3 weeks since back on meds Needs to stay on meds, will get repeat A1C in 3 months UTD on eye and foot exam - HEMOGLOBIN A1C; Future - insulin isophane human (NOVOLIN N RELION) 100 UNIT/ML injection; Inject 35 Units under the skin at bedtime. Dispense: 4 Vial; Refill: 5 - insulin REGULAR human (NOVOLIN R RELION) 100 UNIT/ML injection; Inject 5 Units under the skin three times a day before meals. Dispense: 4 Vial; Refill: 3 2. DM type 2 nursing care encounter (HCC) - HEMOGLOBIN A1C; Future 3. HTN, goal below 140/90 Controlled blood pressure on current medications 4. Dyslipidemia, goal LDL below 100 Continue to monitor 5. Type 2 diabetes mellitus with hemoglobin A1c goal of less than 8.0% ([facility]) As above - HEMOGLOBIN A1C; Future 6. 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 I would like to repeat audiologic testing and have follow-up with ENT for what I perceived to be severe bilateral hearing loss. - OTOLARYNGOLOGY REFERRAL OP - AUDIOLOGY REFERRAL OP 7. Need for vaccination for zoster - zoster vac recomb adjuvanted (SHINGRIX) 50 MCG/0.5ML injection; Inject 0.5 mL into a large musclenow and repeat dose in 60 to 180 days Dispense: 1 Each; Refill: 1 - ZOSTER VACCINE RECOMB, 2 DOSE, IM (SHINGRIX); Future - ZOSTER VACCINE RECOMB, 2 DOSE, IM (SHINGRIX) 8. Chronic right-sided low back pain without sciatica Consider PT if not improving - cyclobenzaprine (FLEXERIL) 5 MG Tablet; Take 1 Tab by mouth 3 times a day as needed for Muscle spasms. Dispense: 30 Tab; Refill: 0 HPI: Selvin Sebastian is a 74 year old male who: Presents today for follow-up. Got his medications on November 02 and has since been back on them. Noticing improved blood sugars. Has been having increasing issues with his hearing. would like to discuss this. ROS: CONSTITUTIONAL: no weight loss, no fevers, no sweats HEENT: no change in vision, significant hearing loss, no congestion, no sore throat CARDIAC: no chest pain, no palpitations, no orthopnea, no PIERCE, no syncope RESP: no wheezing and no SOB GI: no pain, no NVDC, no melena/hematochezia SKIN: no rashes MSK: no significant joint or muscle pain and no swelling : no dysuria or discharge NEURO: no memory loss, no numbness PSYCH: no SI/HI PHYSICAL EXAMINATION: BP 126/74 | Pulse 80 | Temp (Src) 97.7 (Tympanic) | Resp 20 | Wt 184 lbs (83.462kg) | BMI 29.7 kg/m | BSA 1.97 m GENERAL: alert, healthy, no distress, well nourished and well developed HEAD: normocephalic, atraumatic EYES: PERRL, EOMI, Conjunctiva are pink and non-injected, sclera clear EARS: External ears normal, Canals clear, TM's bilaterally disrupted with serous drainage NOSE: no mucosal erythema, no mucosal edema, [...] Full ROM, Pulses Intact, Strength equal bilaterally NEURO: alert & oriented x 3 with fluent speech, no focal motor/sensory deficits, gait normal, reflexes normal and symmetric MSK: Right-sided hypertonicity of the paraspinal musculature at the L1 and to level. Patient Active Problem List Diagnosis Code ADVANCE DIRECTIVE INFORMATION Mixed hearing loss, unilateral H90.8 Sensorineural hearing loss, unilateral H90.5 Otitis media H66.90 Chronic mastoiditis H70.10 Type 2 diabetes mellitus with hemoglobin A1c goal of less than 8.0% ([facility]) E11.9 DYSLIPIDEMIA, GOAL LDL BELOW 100 E78.5 OBESITY, BMI 30-34 (SEE ACTUAL BMI) E66.9 HTN, goal below 140/90 I10 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 Need for prophylactic vaccination and inoculation against influenza Z23 DM type 2 nursing care encounter ([facility]) E11.9 Foot deformity, bilateral M21.961, M21.962 Type 2 diabetes mellitus with polyneuropathy (HCC) E11.42 Obsessive-compulsive disorder, unspecified F42.9 Past Medical History: Diagnosis Date Allergic rhinitis 2003 Chronic mastoiditis 2004 Diabetes mellitus (HCC) Dysfunction of eustachian tube 2004 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 Otitis media 2003 Sensorineural hearing loss, unilateral 2003 left Past Surgical History: Procedure Laterality Date COLONOSCOPY 11/05 clear - repeat 10 y COLONOSCOPY, DIAGNOSTIC (RECTUM) 12/10/2015 diverticulosis, repeat 10 yrs/COLONOSCOPY FLEXIBLE PROXIMAL DIAGNOSTIC performed by Agustin Saravia MD at ENDOSCOPY [facility] FOOT/TOE SURGERY NEC 11/14 L foot deformity MASTOID SURGERY REVISION/APICECTOMY age 18 [facility] [place] SHOULDER ARTHROSCOPY SURGERY 01/07 spur removed Current [...] INSULIN SYRINGE) 30G X 5/16" 0.3 ML [facility] [place] Use up to 4 x a day [...] 90 Cap 3 Blood Glucose Monitoring Suppl (Animail) w/Device KIT Use as directed. Recommend check [...] a day as directed 1 Kit 0 Sildenafil Citrate (VIAGRA) 50 MG Tablet Take 1 Tab by mouth as needed for Erectile Dysfunction. (Patient not taking: Reported on 10/13/2019) 5 Tab 6 ciprofloxacin-dexamethasone (CIPRODEX) 0.3-0.1 % otic suspension 4 DROPS RIGHT EAR ASNEEDED IF WATER GETS IN EAR (Patient not taking: Reported on 10/13/2019) 7.5 mL 3 Review of patient's allergies indicates: Allergen Reactions Lisinopril Edema face/lips/tongue James Maria DO Family [address] [address] (This note was completed using the dictation program Fluency Direct. As such, there may be misspellings, word substitutions, or other variations that should not change the essence of the clinical content of this encounter note.If there is need for further clarification, please direct questions to the provider listed above.) documented in this encounter Nursing Notes * Rita Grossman LPN - 11/21/2019 11:46 AM EST The patient has been properly identified by confirmation of name and date of . Chief Complaint Patient presents with Follow Up 1 month return, low back pain for a few weeks, right ear drainage documented in this encounter Plan of Treatment Upcoming Encounters Date Type Specialty Care Team Description 12/05/2019 Office Visit Otolaryngology Del Multani II, MD [address] [place] [address] [phone] 12/15/2019 Office Visit [place]iatry [place] [address] [place] [id number] 02/23/2020 Office Visit Family Medicine James Maria DO [address] [place] [address] [phone] Scheduled Orders Name Type Priority Associated Diagnoses Orde r Schedule HEMOGLOBIN A1C Lab Routine Type 2 diabetes mellitus with polyneuropathy (HCC) DM type 2 nursing care encounter (HCC) Type 2 diabetes mellitus with hemoglobin A1c goal of less than 8.0% (HCC) Expected: 11/21/2019 (Approximate), Expires: 11/20/2020 Scheduled Referrals Name Type Priority Associated Diagnoses Orde r Schedule OTOLARYNGOLOGY REFERRAL OP Referral Within 10 days (routine) Mixed conductive and sensorineural hearing loss of both ears Ordered: 11/21/2019 AUDIOLOGY REFERRAL OP Referral Within 10 days (routine) Mixed conductive and sensorineural hearing loss of both ears Ordered: 11/21/2019 Health Maintenance Due Date Last Done Comments Zoster Vaccines (2 of 3) 09/28/2012 08/03/2012 DIABETES-EYE EXAM 06/30/2017 06/30/2016, , 03/02/2011 (Done elsewhere), Additional history exists *DEPRESSION SCREENING,ANNUAL FOR PTS 12 AND OVER 06/09/2019 DIABETES-URINE MICROALBUMIN EVERY 12 MONTHS 12/13/2019 12/13/2018, 01/11/2018, 12/24/2015, Additional history exists DIABETES-HGBA1C EVERY 6 MONTHS 05/16/2020 11/16/2019, 12/13/2018, 01/11/2018, Additional history exists DIABETES-FOOT EXAM 10/13/2020 10/13/2019, 0 06/07/2018, 05/13/2017, Additional history exists Yearly B-12 11/16/2020 11/16/2019, 01/11/2018 DTaP,Tdap,and Td Vaccines (2 - Td) 10/21/2021 10/21/2011, 11/09/2003 Pneumococcal Vaccine: 65+ Years Completed 12/24/2015, 07/23/2011 Influenza Vaccine (FLU shot) Completed , 10/21/2018, 09/10/2017, Additional history exists MENINGOCOCCAL (MENACTRA) Aged Out No longer eligible based on patient's age to complete this topic documented as of this encounter Implants Not on filedocumented as of this encounter Visit Diagnoses Diagnosis Need for vaccination for zoster- Primary Need for prophylactic vaccination and inoculation against other viral diseases Type 2 diabetes mellitus with polyneuropathy (HCC) Type II or unspecified type diabetes mellitus with neurological manifestations, not stated as uncontrolled DM type 2 nursing care encounter (HCC) Type II or unspecified type diabetes mellitus without mention of complication, not stated as uncontrolled HTN, goal below 140/90 Unspecified essential hypertension Dyslipidemia, goal LDL below 100 Other and unspecified hyperlipidemia Type 2 diabetes mellitus with hemoglobin A1c goal of less than 8.0% (HCC) Mixed conductive and sensorineural hearing loss of both ears Mixed hearing loss, bilateral Chronic right-sided low back pain without sciatica documented in this encounter Advance Directives Documents on File Type Date Recorded Patient Deckhand Sponge Boat Expl anation Advanced Directive service a hi default Advanced Directive Advanced Directive Advanced Directive Advanced Directive Advanced Directive
--- OUTSIDE RECORDS SUMMARY | 2023-07-31 20:36 | External Medical Summary | Summary of Care ---
Author Name Unknown Organization [place] [address] Care Team Providers Care Correctional Case Manager Name Role Phone James Maria Primary Care Provider Reason for Visit * Reason Comments Advice Encounter Details Date Type Department Care Team Description 12/29/2019 Telephone Otolaryngology [facility] [address] [place] [address] Del Multani II, MD 132 [facility] [place] [address] Advice Allergies Active Allergy Reactions Severity Noted Date Comments Lisinopril Edema face/lips/tongue High 04/05/2018 documented as of this encounter (statuses as of 12/30/2019) Medications Medication Sig Dispensed Refills Start Date End Date Status ciprofloxacin-dexam ethasone (CIPRODEX) 0.3-0.1 % otic suspensionIndicatio ns:Mixed hearing loss, unilateral,Chronic mastoiditis,Otitis media 4 DROPS RIGHT EAR ASNEEDED IF WATER GETS IN EAR 7.5 mL 3 01/29/2016 Active Blood Glucose Monitoring Suppl (Smart LunchesTOUCH ULTRA SYSTEM) W/DEVICE KIT Use as directed [...] 100 Each 6 08/24/2017 Active Glucose Blood (Smart LunchesTOUCH VERIO) STRP Use up to 4 times a day E11.9 300 Strip 3 08/24/2017 Active aspirin enteric coated 81 MG TBECIndications:Typ e 2 diabetes mellitus with diabetic neuropathy, unspecified (HCC) Take 1 Tab by mouth daily. 100 Tab 3 02/10/2018 Active Blood Glucose Monitoring Suppl (Smart LunchesTOUCH VERIO) w/Device KITIndications:Type 2 diabetes mellitus with [...] as of this encounter (statuses as of 12/30/2019) Active Problems Problem Noted Date Tympanic membrane [...] as of this encounter (statuses as of 12/30/2019) Resolved Problems Problem Noted Date Resolved Date [...] as of this encounter (statuses as of 12/30/2019) Immunizations Name Administration Dates Next Due Pneumococcal [...] Encounter - Brianna Amaro MED ASSIST - 12/30/2019 12:46 PM EST Patient's informed. She will olive picker today. * Telephone Encounter - Radha Fiore LPN - 12/30/2019 12:38 PM EST Message left for patient to return call. Letter for Jury Duty is signed, available and ready to be picked up. * Telephone Encounter - Del Multani II, MD - 12/29/2019 3:58 PM EST Radha, Please draft a letter excusing him from jury duty due to his hearing loss. I will sign it tomorrow. Thanks, Dr. Multani * Telephone Encounter - Emely Rodrigues OSA - 12/29/2019 11:55 AM EST Patient calling stating patient has received a letter for jury duty. Patients asking if Dr. Multani would be willing to write a letter to excuse patient from jury duty due to his " hearing problems" Please advise at [phone] documented in this encounter Plan of Treatment Upcoming Encounters Date Type Specialty Care Team Description 02/23/2020 Office Visit Family Medicine James Maria DO [address] [facility] [place] [address] [phone] 03/21/2020 Office Visit Podiatry [place] [address] [facility] [address] [place] [address] [phone] Health Maintenance Due Date Last Done Comments [...] Documents on File Type Date Recorded Patient Inspector Insulation Expl anation Advanced Directive service a hi default Advanced Directive Advanced Directive Advanced Directive Advanced Directive Advanced Directive
--- OUTSIDE RECORDS SUMMARY | 2023-07-31 20:36 | External Medical Summary ---
Author Name Unknown Address [facility] [place] [address] Phone Organization K01:[place] [address] [place] [id number] Laboratory Report Ordering Provider Test Date Status BENJAMIN BA 11/16/2019 08:37:00 Final Observation Date Value Abnormality Reference (Units ) Status HbA1C 11/16/2019 20:53 11.5 Above high normal 4.0-5 .6 (%) Final Performing Location [place] [id number]
--- OUTSIDE RECORDS SUMMARY | 2023-07-31 20:36 | External Medical Summary ---
Author Name Unknown Address [facility] [address] [place] [id number] Phone Organization K01:[place] [address] [address] [facility] [address] Laboratory Report Ordering Provider Test Date Status BENJAMIN BA 11/16/2019 08:37:00 Final Observation Date Value Abnormality Reference (Units ) Status Vitamin B12 11/16/2019 19:33 [id number] (p g/mL) Final Performing Location [address] [address]
--- OUTSIDE RECORDS SUMMARY | 2023-07-31 20:36 | External Medical Summary | Summary of Care ---
Author Name Unknown Organization [place] [address] Care Team Providers Care Lens Coater Name Role Phone James Maria DO Primary Care Provider Reason for Visit * Reason Comments case management referral Encounter Details Date Type Department Care Team Description 10/20/2019 Telephone Family Practice [facility] [address] [facility] [place] [id number] Edwin Sherman RN case management (referral) Allergies Active Allergy Reactions Severity Noted Date Comments Lisinopril Edema face/lips/tongue High 04/05/2018 documented as of this encounter (statuses as of 10/20/2019) Medications Medication Sig Dispensed Refills Start Date End Date Status ciprofloxacin-dexam ethasone (CIPRODEX) 0.3-0.1 % otic suspensionIndicatio ns:Mixed hearing loss, unilateral,Chronic mastoiditis,Otitis media 4 DROPS RIGHT EAR ASNEEDED IF WATER GETS IN EAR 7.5 mL 3 01/29/2016 Active Additional information Patient not taking. Reported on 10/13/2019 8:44 AM Blood Glucose Monitoring Suppl (IM5TOUCH ULTRA SYSTEM) W/DEVICE KIT Use as directed 4 times a day as needed for Hyperglycemia (high sugar) or Hypoglycemia (low sugar). Use up to four times a day as directed 1 Kit 0 01/29/2016 Active Additional information Patient not taking. Reported on 10/13/2019 8:44 AM ONETOUCH ULTRA BLUE STRP USE TO CHECK GLUCOSE 4 TIMES DAILY 100 Strip 0 11/13/2016 Active Additional information Patient not taking. Reported on 10/13/2019 8:44 AM ONETOUCH DELICA LANCETS 33G MISC USE ONE TO CHECK GLUCOSE 4 TIMES DAILY 100 Each 0 11/13/2016 Active Additional information Patient not taking. Reported on 10/13/2019 8:44 AM Sildenafil Citrate (VIAGRA) 50 MG TabletIndications:I mpotence of organic origin Take 1 Tab by mouth as needed for Erectile Dysfunction. 5 Tab 6 08/24/2017 Active Additional information Patient not taking. Reported on 10/13/2019 8:44 AM Insulin Pen Needle (RELION PEN NEEDLES) 32G X 4 MM Use as directed with flexpen 100 Each 6 08/24/2017 Active Additional information Patient not taking. Reported on 10/13/2019 8:44 AM ONETOUCH DELICA LANCETS 33G MISC Use 3 times daily for checking blood sugars 100 Each 3 08/24/2017 Active Glucose Blood (ONETOUCH VERIO) STRP Use up to 4 times a day E11.9 300 Strip 3 08/24/2017 Active Additional information Patient not taking. Reported on 10/13/2019 8:44 AM aspirin enteric coated 81 MG TBECIndications:Typ e 2 diabetes mellitus with diabetic neuropathy, unspecified (HCC) Take 1 Tab by mouth daily. 100 Tab 3 02/10/2018 Active Additional information Patient not taking. Reported on 10/13/2019 8:44 AM Blood Glucose Monitoring Suppl (ONETOUCH VERIO) w/Device KITIndications:Type 2 diabetes mellitus with hemoglobin A1c goal of 7.0%-8.0% (HCC) Use as directed. Recommend check glucose levels at least 2 times daily-once in AM before breakfast and once 2 hours after evening meal. 1 Kit 0 05/12/2018 Active Additional information Patient not taking. Reported on 10/13/2019 8:44 AM amLODIPine (NORVASC) 5 MG Tablet Take 1 Tab by mouth daily. 90 Tab 3 01/26/2019 Active Additional information Patient not taking. Reported on 10/13/2019 8:44 AM atorvaSTATin (LIPITOR) 40 MG Tablet Take 1 Tab by mouth daily. 90 Tab 3 01/26/2019 Active Additional information Patient not taking. Reported on 10/13/2019 8:44 AM MetFORMIN (GLUCOPHAGE) 1000 MG TabletIndications:T ype 2 diabetes mellitus with hemoglobin A1c goal of less than 7.0% (HCC) TAKE ONE TABLET BY MOUTH TWICE DAILY WITH MORNING AND EVENING MEALS 180 Tab 3 01/26/2019 Active Additional information Patient not taking. Reported on 10/13/2019 8:44 AM tamsulosin (FLOMAX) 0.4 MG Capsule Take 1 Cap by mouth daily. 90 Cap 3 01/26/2019 Active Additional information Patient not taking. Reported on 10/13/2019 8:44 AM NOVOLOG FLEXPEN 100 UNIT/ML SOPNIndications:Typ e 2 diabetes mellitus with hemoglobin A1c goal of less than 7.0% (HCC) INJECT 5 UNITS SUBCUTANEOUSLY THREE TIMES DAILY WITH MEALS 15 mL 3 01/26/2019 Active Additional information Patient not taking. Reported on 10/13/2019 8:44 AM insulin REGULAR human (NOVOLIN R RELION) 100 UNIT/ML injectionIndication s:Type 2 diabetes mellitus with polyneuropathy (HCC) Inject 5 Units under the skin three times a day before meals. 1 Vial 3 10/13/2019 Active insulin isophane human (NOVOLIN N RELION) 100 UNIT/ML injectionIndication s:Type 2 diabetes mellitus with polyneuropathy (HCC) Inject 35 Units under the skin at bedtime. 1 Vial 5 10/13/2019 Active Insulin Syringe-Needle U-100 (RELION INSULIN SYRINGE) 30G X 5/16" 0.3 ML MISCIndications:Typ e 2 diabetes mellitus with polyneuropathy (HCC),Type 2 diabetes mellitus with hemoglobin A1c goal of less than 8.0% (HCC) Use up to 4 x a day for insulin dosing E11.9 1 Box Dosing Unit 3 10/14/2019 Active documented as of this encounter (statuses as of 10/20/2019) Active Problems Problem Noted Date Type 2 diabetes mellitus with polyneurop athy [...] as of this encounter (statuses as of 10/20/2019) Resolved Problems Problem Noted Date Resolved Date [...] as of this encounter (statuses as of 10/20/2019) Immunizations Name Administration Dates Next Due Pneumococcal [...] last noted alcohol intake was 1 ounces. Sex Assigned at Date Recorded Not on file Job Start Date Occupation Industry Not on file Not on file Not on file Travel History Travel Start Travel End documented as of this encounter Miscellaneous Notes * Telephone Encounter - Rita Grossman LPN - 10/20/2019 4:21 PM EST Notes were faxed to [employer] as requested. * Telephone Encounter - Edwin Sherman RN - 10/20/2019 3:50 PM EST Spouse Farhana left a message to have papers for [employer] shoes be faxed to [employer], spoke with nurse and when they are completed by PCP she will fax, Phoned Farhana to make her aware. documented in this encounter Plan of Treatment Upcoming Encounters Date Type Specialty Care Team Description 11/21/2019 Office Visit Family Medicine James Maria, [address] [facility] [place] [address] [phone] 12/15/2019 Office Visit Podiatry Region, [place] [address] [place] [address] Health Maintenance Due Date Last Done Comments Zoster Vaccines (2 of 3) 09/28/2012 08/03/2012 DIABETES-EYE EXAM 06/30/2017 06/30/2016, , 03/02/2011 (Done elsewhere), Additional history exists Yearly B-12 01/11/2019 01/11/2018 *DEPRESSION SCREENING,ANNUAL FOR PTS 12 AND OVER 06/09/2019 DIABETES-HGBA1C EVERY 6 MONTHS 06/12/2019 12/13/2018, 01/11/2018, 09/10/2017, Additional history exists DIABETES-URINE MICROALBUMIN EVERY 12 MONTHS 12/13/2019 12/13/2018, 01/11/2018, 12/24/2015, Additional history exists DIABETES-FOOT EXAM 10/13/2020 10/13/2019, 0 06/07/2018, 05/13/2017, Additional history exists DTaP,Tdap,and Td Vaccines (2 [...] Documents on File Type Date Recorded Patient Conversion Developer Expl anation Advanced Directive service a hi default Advanced Directive Advanced Directive Advanced Directive Advanced Directive Advanced Directive
--- OUTSIDE RECORDS SUMMARY | 2023-07-31 20:36 | External Medical Summary | Summary of Care ---
Author Name Unknown Organization [facility] Address [address] Care Team Providers Care Copy Camera Operator Name Role Phone James Maria DO Primary Care Provider Reason for Referral * Evaluate & Treat - Unlimited Visits (Within 30 days (routine)) Status Reason Specialty Diagnoses / Procedures Referred By Contact Referred To Contact Authorized Specialty Services Required Optometry Diagnoses DM type 2 nursing care encounter (HCC) James Maria DO [address] [address] * Evaluate & Treat - Unlimited Visits (Within 10 days (routine)) Status Reason Specialty Diagnoses / Procedures Referred By Contact Referred To Contact Authorized Specialty Services Required [employer] Diagnoses Type 2 diabetes mellitus with hemoglobin A1c goal of less than 8.0% (HCC) James Maria DO [address] [address] Reason for Visit * Reason Comments Follow Up return, DM shoes pap erwork Encounter Details Date Type Department Care Team Description 10/13/2019 Office Visit Family [facility] [address] [address] James Maria DO [address] [address] [phone] Type 2 diabetes mellitus with hemoglobin A1c goal of less than 8.0% (HCC)*; Other termite helper (current) drug therapy; DM type 2 nursing care encounter (HCC); Risk and functional assessment; DM type 2 with diabetic peripheral neuropathy (HCC) Allergies Active Allergy Reactions Severity Noted Date Comments Lisinopril Edema face/lips/tongue High 04/05/2018 documented as of this encounter (statuses as of 10/20/2019) Medications Medication Sig Dispensed Refills Start Date End Date Status ciprofloxacin-de xamethasone (CIPRODEX) 0.3-0.1 % otic suspensionIndica tions:Mixed hearing loss, unilateral,Chron ic mastoiditis,Otit is media 4 DROPS RIGHT EAR ASNEEDED IF [...] as directed 1 Kit 0 6 Active Additional information Patient not taking. Reported on 10/13/2019 8:44 AM ONETOUCH ULTRA BLUE STRP USE TO CHECK GLUCOSE 4 TIMES DAILY 100 Strip 0 7 Active Additional information Patient not taking. Reported on 10/13/2019 8:44 AM ONETOUCH DELICA LANCETS 33G MISC USE ONE TO CHECK GLUCOSE 4 TIMES DAILY 100 Each 0 7 Active Additional information Patient not taking. Reported on 10/13/2019 8:44 AM Sildenafil Citrate (VIAGRA) 50 MG TabletIndication s:Impotence of organic origin Take 1 Tab by mouth as needed for Erectile Dysfunction. 5 Tab 6 7 Active Additional information Patient not taking. Reported on 10/13/2019 8:44 AM Insulin Pen Needle (RELION PEN NEEDLES) 32G X 4 MM Use as directed with flexpen 100 Each 6 7 Active Additional information Patient not taking. Reported on 10/13/2019 8:44 AM ONETOUCH DELICA LANCETS 33G MISC Use 3 times daily for checking blood sugars 100 Each 3 7 Active Glucose Blood (ONETOUCH VERIO) STRP Use up to 4 times a day E11.9 300 Strip 3 7 Active Additional information Patient not taking. Reported on 10/13/2019 8:44 AM aspirin enteric coated 81 MG TBECIndications: Type 2 diabetes mellitus with diabetic neuropathy, unspecified (HCC) Take 1 Tab by mouth daily. 100 Tab 3 8 Active Additional information Patient not taking. Reported on 10/13/2019 8:44 AM Blood Glucose Monitoring Suppl (Con[employer]iv VERIO) w/Device KITIndications:T ype 2 diabetes mellitus with hemoglobin A1c goal of 7.0%-8.0% (HCC) Use as directed. Recommend check glucose levels at least 2 times daily-once in AM before breakfast and once 2 hours after evening meal. 1 Kit 0 8 Active Additional information Patient not taking. Reported on 10/13/2019 8:44 AM amLODIPine (NORVASC) 5 MG Tablet Take 1 Tab by mouth daily. 90 Tab 3 9 Active Additional information Patient not taking. Reported on 10/13/2019 8:44 AM atorvaSTATin (LIPITOR) 40 MG Tablet Take 1 Tab by mouth daily. 90 Tab 3 9 Active Additional information Patient not taking. Reported on 10/13/2019 8:44 AM MetFORMIN (GLUCOPHAGE) 1000 MG TabletIndication s:Type 2 diabetes mellitus with hemoglobin A1c goal of less than 7.0% ([facility]) TAKE ONE TABLET BY MOUTH TWICE DAILY WITH MORNING AND EVENING MEALS 180 Tab 3 9 Active Additional information Patient not taking. Reported on 10/13/2019 8:44 AM tamsulosin (FLOMAX) 0.4 MG Capsule Take 1 Cap by mouth daily. 90 Cap 3 9 Active Additional information Patient not taking. Reported on 10/13/2019 8:44 AM NOVOLOG FLEXPEN 100 UNIT/ML SOPNIndications: Type 2 diabetes mellitus with hemoglobin A1c goal of less than 7.0% ([facility]) INJECT 5 UNITS SUBCUTANEOUSLY THREE TIMES DAILY WITH MEALS 15 mL 3 9 Active Additional information Patient not taking. Reported on 10/13/2019 8:44 AM insulin isophane human (NOVOLIN N RELION) 100 UNIT/ML injection Inject 5 Units under the skin 2 times a day. 1 Vial 5 7 10/13/20 19 Discontinued RELION INSULIN SYRINGE 30G X 5/16" 0.3 ML MISCIndications: Type 2 diabetes mellitus with hemoglobin A1c goal of less than 7.0% (HCC) For insulin dosing 4 times daily 1 Box Dosing Unit 3 8 10/14/20 19 Discontinued insulin glargine (LANTUS SOLOSTAR) 100 UNIT/ML SOPNIndications: Type 2 diabetes mellitus with hemoglobin A1c goal of less than 7.0% (HCC) 35 units at bedtime. 15 Pre-filled Pen Syringe Dosing Unit 3 9 10/13/20 19 Discontinued NOVOLOG FLEXPEN 100 UNIT/ML SOPNIndications: Type 2 diabetes mellitus with hemoglobin A1c goal of less than 7.0% (HCC) Inject 5 Units under the skin three times a day with meals. 5 units with Breakfast, lunch, and dinner 5 Pre-filled Pen Syringe Dosing Unit 3 9 10/13/20 19 Discontinued documented as of this encounter (statuses [...] Sign Reading Time Taken Comments Blood Pressure 154/82 10/13/2019 8:41 AM EST Pulse 76 10/13/2019 8:41 AM EST Temperature 36.5 C (97.7 F) 10/13/2019 8:41 AM ES T Respiratory Rate 16 10/13/2019 8:41 AM EST Oxygen Saturation - - Inhaled Oxygen Concentration - - Weight 78.9 kg (174 lb) 10/13/2019 8:41 AM EST Height 167.6 cm (5' 6") 10/13/2019 8:41 AM EST Body Mass Index 28.08 10/13/2019 8:41 AM EST documented in this encounter Patient Instructions * Patient Instructions* Rita Grossman LPN - 10/13/2019 8:40 AM EST Patient Instructions - Fall Prevention (This education is for all patients over 65 regardless of symptoms) Remember to take your current medications as prescribed. In order to prevent falls, you are encouraged to: Exercise Utilize assistive/adaptive devices Avoid multifocal lenses when walking Avoid hazards in home Maintain a regular toileting schedule Any questions please contact our office. Preventing Falls in the Home (This education is for all patients over 65 regardless of symptoms) As you get older, falls are more likely. Thats because your reaction time slows. Your muscles and joints may also get stiffer, making them less flexible. Illness, medications, and vision changes can also affect your balance. A fall could leave you unable to live on your own. To make your home safer, follow these tips: Floors Put nonskid pads under area rugs Remove throw rugs Replace worn floor coverings Tack carpets firmly to each step on carpeted stairs. Put nonskid strips on the edges of uncarpeted stairs Keep floors and stairs free of clutter and cords Arrange furniture so there are clear pathways Clean up any spills right away Bathrooms Install grab bars in the tub or shower Apply nonskid strips or put a nonskid rubber mat in the tub or shower Sit on a bath chair to bathe Use bathmats with nonskid backing Lighting Keep a flashlight in each room Put a nightlight along the pathway between the bedroom and the bathroom [employer] Patient Education Copyright 2008 - 2010 [employer] except where otherwise noted Preventing Falls: Exercises to Improve Balance, Flexibility, Strength, and Staying Power (This education is for all patients over 65 regardless of symptoms) Certain types of exercises may help make you less likely to fall. Try the ones below. Or do other exercises that your healthcare provider suggests. Depending on your health, you may need to start slowly. Dont let that stop you. Even small amounts of exercise can help you. Be sure to talk to yourhealthcare provider before starting any exercise program. Improve Balance Many types of exercise can help improve balance. Oscar chi and yoga are good examples. Heres another one to try. You can do it anytime and almost anywhere. Stand next to a counter or solid support. Push yourself up onto your tiptoes. Hold for 5 seconds. If you start to lose your balance, hold on to the counter. Rest and repeat 5 times. Work up to holding for 20 to 30 seconds, if you can. Increase Flexibility Being more flexible makes it easier for you to move around safely. Try exercises like the seated hamstring stretch. Sit in a chair and put one foot on a stool. Straighten your leg and reach with both hands down either side of your leg. Reach as far down your leg as you can. Hold for about 20 seconds. Go back to the starting position. Then repeat 5 times. Switch legs. Build Strength Resistance exercises help build strength. You can do them without equipment. Or you can use weights, elastic bands, or special machines. One such exercise is called the biceps curl. You can hold a 1 pound weight or even a can of soup. Do this exercise at least 3 times a week. Strive for everyday. Sit up straight in a chair. Keep your elbow close to your body and your wrist straight. Bend your arm, moving your hand up to your shoulder. Then slowly lower your arm. Repeat 5 times. Switch to the other arm. Build Your Staying Power Aerobic exercises make your heart and lungs stronger so you can keep moving longer. Walking and swimming are two of the best types of exercises you can do. Using a stationary bike is great, too. Find an aerobic exercise that you enjoy. Start slowly and build up. Even 5 minutes is helpful. Aimfor a goal of 30 minutes, at least 3 times a week. You dont have to do 30 minutes in one session. Break it up and walk a little throughout the day. More Helpful Tips Start easy. Slowly work up to doing more. Talk with your healthcare provider about the best exercises for you. Call senior centers or health clubs about exercise programs. If needed, have a family member watch you walk every so often to check your stability. Exercise with a friend. Choose an activity you both enjoy. Try exercises that you can do anytime, anywhere. Here are two examples. Have someone with you when you first try these: Practice walking by placing one foot right in front of the other. Stand up and sit down 10 times. Repeat this throughout the day. [employer] Patient Education Copyright 2008 [employer] except where otherwise noted. Preventing Falls: Moving Safely Using a Cane or Walker (This education is for all patients over 65 regardless of symptoms) Keep the cane away from your feet so you dont trip. A walking aid, such as a cane or walker, can help you stay more independent and avoid falls. Remember to keep your walking aid within easy reach when youre in a chair or in bed. And learn how to use it safely so you dont injure yourself. Using a Cane If you have a stronger side, hold the cane on that side. 17. Get your balance. 18. Move the cane and your weaker leg forward. 19. Support your weight on both the cane and your weaker side. 20. Step with your stronger leg. 21. Start again from step 1. If youre using a folding walker, be sure you know how to lock it open. Check that its locked open before each use. Using a Walker 7. Roll the walker (or lift it, if youre using one without wheels) forward about 12 inches. 8. Step forward with your weaker leg first. 9. Use the walker to help keep your balance. 10. Bring your other foot forward to the center of the walker. 11. Start again from step 1. Helpful Tips Check with your healthcare provider about the right walking aid to use. Ask about a walker with a seat attached. Check the tips of your cane or walker to make sure they have nonskid covers. Move slowly from room to room. Dont fitzgerald. Sit down to get dressed. Use a yousuf pack or backpack to keep your hands free. Get help for jobs that mean climbing, even on a stepstool. [employer] Patient Education Copyright 2008 - 2010 [employer] except where otherwise noted. Treating Urinary Incontinence in Men (This education is for all patients over 65 regardless of symptoms) You can't always control the release of urine. You may leak urine. Or you may not be able to hold your urine until you can get to a bathroom. This is called urinary incontinence. The problem can be managed. Talk to your doctor about your treatment options. Taking Medications Prescription medications may help you. They may: Help the sphincter to work better. (This is the muscle that closes to keep urine from leaking out of the bladder.) Help stop the bladder from james too often to push urine out. Help the bladder muscles contract with more force. Help relax the sphincter muscle and allow urine to flow more freely. Making Changes to Your Routine Certain changes in your daily routine may help. These include: Avoiding caffeine and alcohol. Using timed voiding. This is following a schedule for drinking fluids and urinating. Doing Kegel exercises daily. These exercises involve tightening the muscles in your sphincter and around your bladder to help strengthen them. Your doctor can explain how to do them. Using a Catheter A catheter is a narrow tube that is inserted through the urethra into the bladder. It drains urine.A condom catheter covers the penis. It channels urine into a collection bag. It is worn most of thetime. Intermittent catheterization means inserting a catheter to drain the bladder, then removing it. This is done on a regular schedule. Having Surgery If other options don't work, surgery may be recommended. If surgery is an option, your healthcare provider can discuss it with you and explain its risks and benefits. Healing After Prostate Surgery Surgery on the prostate gland can cause incontinence. Most often, the incontinence is only for a short time. It clears up when healing is complete. Very rarely, prostate surgery can result in permanent incontinence. Diabetes: Keeping Feet Healthy Inspect your feet [...] calluses yourself. Talk to your doctor or background check coordinator (a doctor who specializes in foot [...] the area doesnt appear to be healing. [id number] [employer], [address] [place] [address], [place] [address]. All rights reserved. This information is not intended as a substitute for professional medical care. Always follow your healthcare professional's instructions. Dear Selvin Sebastian, The care of your Diabetes is very important to us. A yearly diabetic eye exam is important to protect your vision. If youre getting an eye exam done outside of [facility] please tell your Eye Doctor to fax or mail us the results of your Diabetic Eye Exam at your next visit. Our Address and Fax Number are listed below to help. Thank you for helping us to improve your Diabetes Care Our Office Address and Fax Number: James Maria, DO Family Practice [address] [address] Diabetic Retinopathy: Evaluating Your Eyes Diabetic retinopathy [...] information about this test. Date Last Reviewed: 04/02/201619998766-5020 [employer]. [address] [place] [address]. All rights reserved. This information is not intended as a substitute for professional medical care. Always follow your healthcare professional's instructions. documented in this encounter Progress Notes * James Maria DO - 10/13/2019 9:22 AM EST Nursing Notes: Rita Grossman LPN 10/13/19 0850 Signed The patient has been properly identified by confirmation of name and date of . Chief Complaint Patient presents with Follow Up return, SARTHAK ta paperwork Patient reports he hasn't been taking any of his medications due to cost. ASSESSMENT/PLAN: 1. Type 2 diabetes mellitus with hemoglobin A1c goal of less than 8.0% (HCC) Wildly uncontrolled diabetes in the setting of lack of compliance due to concerns over medication cost. Will attempt to get counseling case manager to help with the coordination of this patient's insurance understanding and the ability for him to procure medications in the future. Also changed his insulin orders to cheaper versions of insulin at [facility] that he could hopefully have paid for regardless of whether his insurance will pick it upper not. Educated the patient on this and he was noncommittal about whether he will pick it up before the of the year. He will be a high risk for further complications in the future should he remain uncontrolled. - DIABETES FOOT EXAM - HEMOGLOBIN A1C; Future - POPULATION HEALTH REFERRAL OP 2. DM type 2 with diabetic peripheral neuropathy Patient with peripheral neuropathy and foot pain, would benefit greatly from diabetic foot wear. Will recommend he proceed with fitting for diabetic shoes. 3. Other termite helper (current) drug therapy - VITAMIN B12; Future 4. DM type 2 nursing care encounter (HCC) - OPTOMETRY (DIABETES-EXTENDED) REFERRAL OP 5. 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 Usually comes in with his who is able to communicate medically andfor medical changes, but today he is on his. States that he stopped taking his diabetic medicationsmonths ago. They used to be covered by his insurance but then he likely hit the donut hole then was having to pay large amounts of money for his medication. He will not be getting any medications until the 02 of November when his insurance reset. He doesn't seem to quite understand the ins and outsof his insurance coverage and how this impacts his ability to get medications. 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 Sensorineural hearing loss, unilateral H90.5 Otitis media H66.90 Chronic mastoiditis H70.10 Type 2 diabetes mellitus with hemoglobin A1c goal of less than 8.0% ([facility]) E11.9 DYSLIPIDEMIA, GOAL LDL BELOW 100 E78.5 OBESITY, BMI 30-34 (SEE ACTUAL BMI) E66.9 HTN, goal below 140/90 I10 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 Need for prophylactic vaccination and inoculation against influenza Z23 DM type 2 nursing care encounter ([facility]) E11.9 Foot deformity, bilateral M21.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, M21.962 Type 2 diabetes mellitus with polyneuropathy ([facility]) E11.42 Past Medical History: Diagnosis Date Allergic rhinitis 2004 Chronic mastoiditis 2003 Dysfunction of eustachian tube 2003 Mixed hearing loss, unilateral 2003 right Otitis media 2004 Sensorineural hearing loss, unilateral 2003 left Past Surgical History: Procedure Laterality Date COLONOSCOPY 11/05 clear - repeat 10 y COLONOSCOPY, DIAGNOSTIC (RECTUM) 12/10/2015 diverticulosis, repeat 10 yrs/COLONOSCOPY FLEXIBLE PROXIMAL DIAGNOSTIC performed by Agustin Saravia MD at [facility] 11/14 L foot deformity MASTOID SURGERY REVISION/APICECTOMY age 18 [facility] 01/07 spur removed Current Outpatient Medications Medication Sig Dispense Refill insulin isophane human (NOVOLIN N RELION) 100 UNIT/ML injection Inject 35 Units under the skin at bedtime. 1 Vial 5 insulin REGULAR human (NOVOLIN R RELION) 100 UNIT/ML injection Inject 5 Units under the skin three times a day before meals. 1 Vial 3 amLODIPine (NORVASC) 5 MG Tablet Take 1 Tab by mouth daily. (Patient not taking: Reported on 10/13/2019) 90 Tab 3 atorvaSTATin (LIPITOR) 40 MG Tablet Take 1 Tab by mouth daily. (Patient not taking: Reported on 10/13/2019) 90 Tab 3 MetFORMIN (GLUCOPHAGE) 1000 MG Tablet TAKE ONE TABLET BY MOUTH TWICE DAILY WITH MORNING AND EVENINGMEALS (Patient not taking: Reported on 10/13/2019) 180 Tab 3 NOVOLOG FLEXPEN 100 UNIT/ML SOPN INJECT 5 UNITS SUBCUTANEOUSLY THREE TIMES DAILY WITH MEALS (Patient not taking: Reported on 10/13/2019) 15 mL 3 tamsulosin (FLOMAX) 0.4 MG Capsule Take 1 Cap by mouth daily. (Patient not taking: Reported on 10/13/2019) 90 Cap 3 Blood Glucose Monitoring Suppl ([employer] VERIO) w/Device KIT Use as directed. Recommend check glucose levels at least 2 times daily-once in AM before breakfast and once 2 hours after evening meal. (Patient not taking: Reported on 10/13/2019) 1 Kit 0 aspirin enteric coated 81 MG TBEC Take 1 Tab by mouth daily. (Patient not taking: Reported on 10/13/2019) 100 Tab 3 RELION INSULIN SYRINGE 30G X 5/16" 0.3 ML MISC For insulin dosing 4 times daily (Patient not taking: Reported on 10/13/2019) 1 Box Dosing Unit 3 Glucose Blood (The [employer]acs InitiativeTOUCH VERIO) STRP Use up to 4 times a day E11.9 (Patient not taking: Reported on 10/13/2019) 300 Strip 3 Insulin Pen Needle (RELION PEN NEEDLES) 32G X 4 MM Use as directed with flexpen (Patient not taking: Reported on 10/13/2019) 100 Each 6 ONETOUCH DELICA LANCETS 33G MISC Use 3 times daily for checking blood sugars 100 Each 3 Sildenafil Citrate (VIAGRA) 50 MG Tablet Take 1 Tab by mouth as needed for Erectile Dysfunction. (Patient not taking: Reported on 10/13/2019) 5 Tab 6 ONETOUCH DELICA LANCETS 33G MISC USE ONE TO CHECK GLUCOSE 4 TIMES DAILY (Patient not taking: Reported on 10/13/2019) 100 Each 0 ONETOUCH ULTRA BLUE STRP USE TO CHECK GLUCOSE 4 TIMES DAILY (Patient not taking: Reported on 10/13/2019) 100 Strip 0 Blood Glucose Monitoring Suppl (ONETOUCH ULTRA SYSTEM) W/DEVICE KIT Use as directed 4 times a day as needed for Hyperglycemia (high sugar) or Hypoglycemia (low sugar). Use up to four times a day as directed (Patient not taking: Reported on 10/13/2019) 1 Kit 0 ciprofloxacin-dexamethasone (CIPRODEX) 0.3-0.1 % otic suspension 4 DROPS RIGHT EAR ASNEEDED IF WATER GETS IN EAR (Patient not taking: Reported on 10/13/2019) 7.5 mL 3 Review of patient's allergies indicates: Allergen Reactions Lisinopril Edema face/lips/tongue James Maria DO Family [address] [address] (This note was completed using the dictation program Fluency Direct. As such, there may be misspellings, word substitutions, or other variations that should not change the essence of the clinical content of this encounter note.If there is need for further clarification, please direct questions to the provider listed above.) The importance of having a yearly diabetic eye exam has been discussed with patient. Order and/or Referral placed along with patient instructions. Provider made aware. James Maria DO * Rita Grossman LPN - 10/13/2019 8:48 AM EST DM Foot Exam completed today. Provider aware. Rita Grossman LPN Socks and Shoes Removed for Annual Diabetic Foot Screening RIGHT FOOT: No Reddened, Cracking, Or Open Areas Noted. RIGHT Dorsalis Pedis Pulse: Unable to locate RIGHT Posterior Tibial Pulse: Unable to locate RIGHT Monofilament:Patient reports difficulty feeling monofilament at Great toe- plantar surface, Third toe-plantar surface, Ball of Foot-base of great toe, Ball of Foot-base of 3rd toe and Ball of Foot-base of little toe LEFT FOOT: No Reddened, Cracking or Open Areas Noted. LEFT Dorsalis Pedis Pulse: Unable to locate LEFT Posterior Tibial Pulse: Unable to locate LEFT Monofilament:Patient reports difficulty feeling monofilament at Great toe- plantar surface, Third toe-plantar surface, Ball of Foot-base of great toe, Ball of Foot-base of 3rd toe and Ball of Foot-base of little toe Hemoglobin a1c ordered today. Provider aware. Rita Grossman LPN documented in this encounter Nursing Notes * Rita Grossman LPN - 10/13/2019 8:41 AM EST The patient has been properly identified by confirmation of name and date of . Chief Complaint Patient presents with Follow Up return, DM shoes paperwork Patient reports he hasn't been taking any of his medications due to cost. documented in this encounter Plan of Treatment Upcoming Encounters Date Type Specialty Care Team Description 11/21/2019 Office Visit Family Medicine [facility] [address] [facility] [place] [address] [phone] 12/15/2019 Office Visit Podiatry [place] [address] [facility] [address] [phone] Scheduled Orders Name Type Priority Associated Diagnoses Orde r Schedule HEMOGLOBIN A1C Lab Routine Type 2 diabetes mellitus with hemoglobin A1c goal of less than 8.0% (HCC) Expected: 10/13/2019 (Approximate), Expires: 10/12/2020 VITAMIN B12 Lab Routine Other longterm (current) drug therapy Expected: 10/13/2019, Expires: 10/12/2020 Scheduled Referrals Name Type Priority Associated Diagnoses Orde r Schedule POPULATION HEALTH REFERRAL OP Referral Within 10 days (routine) Type 2 diabetes mellitus with hemoglobin A1c goal of less than 8.0% (HCC) Ordered: 10/13/2019 OPTOMETRY (DIABETES-EXTENDED) REFERRAL OP Referral Within 30 days (routine) DM type 2 nursing care encounter (HCC) Ordered: 10/13/2019 Health Maintenance Due Date Last Done Comments [...] goal of less than 8.0% (HCC)- Primary Other longterm (current) drug therapy DM type 2 nursing care encounter (HCC) Type II or unspecified type diabetes mellitus without mention of complication, not stated as uncontrolled Risk and functional assessment Screening for unspecified condition DM type 2 with diabetic peripheral neuropathy (HCC) Type II or unspecified type diabetes mellitus with neurological manifestations, not stated as uncontrolled documented in this encounter Advance Directives Documents on File Type Date Recorded Patient Grain Wafer Machine Operator Expl anation Advanced Directive service a hi default Advanced Directive Advanced Directive Advanced Directive Advanced Directive Advanced Directive
--- OUTSIDE RECORDS SUMMARY | 2023-07-31 20:36 | External Medical Summary | Summary of Care ---
Author Name Unknown Organization [place] [address] Care Team Providers Care Warehouse Assistant Name Role Phone James Maria Primary Care Provider Reason for Visit * Reason Comments Advice Encounter Details Date Type Department Care Team Description 12/29/2019 Telephone Otolaryngology [facility] [address] [place] [address] Del Multani II, MD 132 [facility] [place] [address] Advice Allergies Active Allergy [...] 3 01/29/2016 Active Blood Glucose Monitoring Suppl (ScienceLogicTOUCH ULTRA SYSTEM) W/DEVICE KIT Use as directed [...] 100 Each 6 08/24/2017 Active Glucose Blood (ScienceLogicTOUCH VERIO) STRP Use up to 4 times a day E11.9 300 Strip 3 08/24/2017 Active aspirin enteric coated 81 MG TBECIndications:Typ e 2 diabetes mellitus with diabetic neuropathy, unspecified (HCC) Take 1 Tab by mouth daily. 100 Tab 3 02/10/2018 Active Blood Glucose Monitoring Suppl (ScienceLogicTOUCH VERIO) w/Device KITIndications:Type 2 diabetes mellitus with [...] encounter Miscellaneous Notes * Telephone Encounter - Radha Fiore LPN [...] his " hearing problems" Please advise at [phone] documented in this encounter Plan of Treatment Upcoming Encounters Date Type Specialty Care Team Description 02/23/2020 Office Visit Family Medicine James Maria DO 132 [facility] [place] [address] 03/21/2020 Office Visit Podiatry [place] [address] [place] [address] [...] Documents on File Type Date Recorded Patient Take Down Sorter Expl anation Advanced Directive service a hi default Advanced Directive Advanced Directive Advanced Directive Advanced Directive Advanced Directive
--- OUTSIDE RECORDS SUMMARY | 2023-07-31 20:36 | External Medical Summary | Summary of Care ---
Author Name Unknown Organization [place] [address] Care Team Providers Care Freelance Programmer/App Developer Name Role Phone Crow James Dyefiliberto Primary Care Provider Reason for Visit * Reason Comments Follow Up nail care Encounter Details Date Type Department Care Team Description 12/15/2019 Office Visit Podiatry [facility] 132 [facility] [place] [address] [facility] [address] [place] [address] DM type 2 with diabetic peripheral neuropathy (HCC)*; Onychomycosis Allergies Active Allergy Reactions Severity Noted Date Comments Lisinopril Edema face/lips/tongue High 04/05/2018 documented as of this encounter (statuses as of 12/19/2019) Medications Medication Sig Dispensed Refills Start Date [...] 100 Each 6 08/24/2017 Active Glucose Blood (LucidworksUCH VERIO) STRP Use up to 4 times a day E11.9 300 Strip 3 08/24/2017 Active aspirin enteric coated 81 MG TBECIndications:Typ e 2 diabetes mellitus with diabetic neuropathy, unspecified (HCC) Take 1 Tab by mouth daily. 100 Tab 3 02/10/2018 Active Blood Glucose Monitoring Suppl (DinnDinn VERIO) w/Device KITIndications:Type 2 diabetes mellitus with [...] injectionIndication s:Type 2 diabetes mellitus with polyneuropathy ([facility]) Inject 35 Units under the skin at bedtime. 4 Vial 5 11/21/2019 Active insulin REGULAR human (NOVOLIN R RELION) 100 UNIT/ML injectionIndication s:Type 2 diabetes mellitus with polyneuropathy ([facility]) Inject 5 Units under the skin three times a day before meals. 4 Vial 3 11/21/2019 Active documented as of this encounter (statuses as of 12/19/2019) Active Problems Problem Noted Date Tympanic membrane [...] as of this encounter (statuses as of 12/19/2019) Resolved Problems Problem Noted Date Resolved Date [...] as of this encounter (statuses as of 12/19/2019) Immunizations Name Administration Dates Next Due Pneumococcal [...] Travel End documented as of this encounter Progress Notes * Sara Bridges DPM - 12/19/2019 7:51 AM EST Podiatry Established Note [facility] Name: Selvin Sebastian : 1945 Date: 12/19/19 Patient was seen and toenails were addressed by certified husbandry technician Michael Méndez under my supervision. She performed procedure without issue and patient was amendable to this today. Follow up: 3 months, they were instructed to call sooner with any concerns or new issues documented in this encounter Nursing Notes * Aida Méndez TECH - 12/15/2019 8:30 AM EST The patient presents today for foot care. They offer no additional complaints outside of their toenails. Procedure: Procedure: After mild cleansing and drying of [...] Visit Family Medicine James Maria DO [address] [address] [phone] 03/21/2020 Office Visit Podiatry Region, Sandblaster Paint Sprayer [place] [address] [place] [address] [phone] Scheduled Orders Name Type Priority Associated Diagnoses Orde r Schedule DEBRIDEMENT OF NAILS 6 OR MORE Procedures Routine DM type 2 with diabetic peripheral neuropathy (HCC) Onychomycosis Ordered: 12/19/2019 Health Maintenance Due Date Last Done Comments [...] nail documented in this encounter Advance Directives Documents on File Type Date Recorded Patient Invoice Classification Clerk Expl anation Advanced Directive service a hi default Advanced Directive Advanced Directive Advanced Directive Advanced Directive Advanced Directive
--- OUTSIDE RECORDS SUMMARY | 2023-07-31 20:36 | External Medical Summary | Summary of Care ---
Author Name Unknown Organization [place] [address] Care Team Providers Care Precinct Captain Name Role Phone James Maria DO Primary Care Provider Reason for Visit * Reason Comments case management referral Encounter Details Date Type Department Care Team Description 10/20/2019 Telephone Family Practice [facility] 132 [facility] [place] [id number] Edwin Sherman RN case management (referral) Allergies [...] 10/13/2019 8:44 AM Blood Glucose Monitoring Suppl (jslyhlTOUCH ULTRA SYSTEM) W/DEVICE KIT Use as directed [...] encounter Miscellaneous Notes * Telephone Encounter - Edwin Sherman, RN - 10/20/2019 3:50 PM EST Spouse [...] Office Visit Family Medicine James Maria, 132 [facility] [place] [address] [phone] 12/15/2019 [facility] [address] [place] [...] Documents on File Type Date Recorded Patient Mortar Man Expl anation Advanced Directive service a hi default Advanced Directive Advanced Directive Advanced Directive Advanced Directive Advanced Directive
--- OUTSIDE RECORDS SUMMARY | 2023-07-31 20:36 | External Medical Summary | Summary of Care ---
Author Name Unknown Organization [place] [address] Care Team Providers Care Evaporator Supervisor Name Role Phone James Maria Primary Care Provider Reason for Visit * Reason Comments [facility] Encounter Details Date Type Department Care Team Description 12/06/2019 Telephone Care Coordination [address] [place] [address] Sara Recinos, Community [facility] Feller Operator [address] [place] [address] [phone] [facility] Allergies Active Allergy Reactions Severity Noted Date Comments Lisinopril Edema face/lips/tongue High 04/05/2018 documented as of this encounter (statuses as of 12/06/2019) Medications Medication Sig Dispensed Refills Start Date End Date Status ciprofloxacin-dexam ethasone (CIPRODEX) 0.3-0.1 % otic suspensionIndicatio ns:Mixed hearing loss, unilateral,Chronic mastoiditis,Otitis media 4 DROPS RIGHT EAR ASNEEDED IF WATER GETS IN EAR 7.5 mL 3 01/29/2016 Active Additional Information Patient not taking. Reported on 10/13/2019 8:44 AM Blood Glucose Monitoring Suppl (LeftLane SportsUCH ULTRA SYSTEM) W/DEVICE KIT Use as directed 4 times a day as needed for Hyperglycemia (high sugar) or Hypoglycemia (low sugar). Use up to four times a day as directed 1 Kit 0 01/29/2016 Active LeftLane SportsUCH ULTRA BLUE STRP USE TO CHECK GLUCOSE [...] 100 Each 6 08/24/2017 Active Glucose Blood (BlokifyTOUCH VERIO) STRP Use up to 4 times a day E11.9 300 Strip 3 08/24/2017 Active aspirin enteric coated 81 MG TBECIndications:Typ e 2 diabetes mellitus with diabetic neuropathy, unspecified (HCC) Take 1 Tab by mouth daily. 100 Tab 3 02/10/2018 Active Blood Glucose Monitoring Suppl (LeftLane SportsUCH VERIO) w/Device KITIndications:Type 2 diabetes mellitus with [...] injectionIndication s:Type 2 diabetes mellitus with polyneuropathy ([facility]) Inject 35 Units under the skin at bedtime. 4 Vial 5 11/21/2019 Active insulin REGULAR human (NOVOLIN R RELION) 100 UNIT/ML injectionIndication s:Type 2 diabetes mellitus with polyneuropathy ([facility]) Inject 5 Units under the skin three times a day before meals. 4 Vial 3 11/21/2019 Active documented as of this encounter (statuses as of 12/06/2019) Active Problems Problem Noted Date Tympanic membrane [...] as of this encounter (statuses as of 12/06/2019) Resolved Problems Problem Noted Date Resolved Date [...] as of this encounter (statuses as of 12/06/2019) Immunizations Name Administration Dates Next Due Pneumococcal [...] Drinks/Week oz/Week Comments Yes 0.0 As of 2.17.2007 , the last noted alcohol intake was [...] encounter Miscellaneous Notes * Telephone Encounter - Sara Recinos [facility] Feller Operator - 12/06/2019 4:20 PM EST [facility] #[facility]-Unable to contact pt at home number. LMM with spouseon her phone to return call to [facility]. documented in this encounter Plan of Treatment Upcoming Encounters Date Type Specialty Care Team Description 12/15/2019 Office Visit Podiatry [place] [address] [place] [id number] 02/23/2020 Office Visit Family Medicine James Maria DO 132 [facility] [place] [address] Health Maintenance Due Date Last Done Comments DIABETES-EYE EXAM 06/30/2017 06/30/2016, , 03/02/2011 (Done elsewhere), Additional history exists DIABETES-URINE MICROALBUMIN EVERY 12 MONTHS 12/13/2019 12/13/2018, 01/11/2018, 12/24/2015, Additional history exists Zoster Vaccines (3 of 3) 01/16/2020 11/21/2019, 1012/2011 DIABETES-HGBA1C EVERY 6 MONTHS 05/16/2020 11/16/2019, 12/13/2018, [...] Documents on File Type Date Recorded Patient 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
--- OUTSIDE RECORDS SUMMARY | 2023-07-31 20:36 | External Medical Summary | Summary of Care ---
Author Name Unknown Organization [place] [address] Care Team Providers Care Jigger Artisan Name Role Phone James Maria Primary Care Provider Reason for Visit * Reason Comments Advice Encounter Details Date Type Department Care Team Description 12/29/2019 Telephone Otolaryngology [facility] [address] [place] [address] Del Multani II, MD 132 [facility] [place] [address] Advice Allergies Active Allergy [...] 3 01/29/2016 Active Blood Glucose Monitoring Suppl (MiyaobabeiTOUCH ULTRA SYSTEM) W/DEVICE KIT Use as directed [...] 100 Each 6 08/24/2017 Active Glucose Blood (MiyaobabeiTOUCH VERIO) STRP Use up to 4 times a day E11.9 300 Strip 3 08/24/2017 Active aspirin enteric coated 81 MG TBECIndications:Typ e 2 diabetes mellitus with diabetic neuropathy, unspecified (HCC) Take 1 Tab by mouth daily. 100 Tab 3 02/10/2018 Active Blood Glucose Monitoring Suppl (MiyaobabeiTOUCH VERIO) w/Device KITIndications:Type 2 diabetes mellitus with [...] encounter Miscellaneous Notes * Telephone Encounter - Del Multani II, [...] his " hearing problems" Please advise at [phone] documented in this encounter Plan of Treatment Upcoming Encounters Date Type Specialty Care Team Description 02/23/2020 Office Visit Family Medicine James Maria, 132 [facility] [place] [address] 03/21/2020 Office Visit Podiatry [place] [address] [place] [address] Health Maintenance Due Date Last [...] on File Type Date Recorded Patient Supervisor Evaporator Expl anation Advanced Directive service a hi default Advanced Directive Advanced Directive Advanced Directive Advanced Directive Advanced Directive
--- OUTSIDE RECORDS SUMMARY | 2023-07-31 20:36 | External Medical Summary | Summary of Care ---
Author Name Unknown Organization [place] [address] Care Team Providers Care Supervisor Hydrochloric Area Name Role Phone James Maria Primary Care Provider Reason for Visit * Reason Comments [facility] Care Coordination Services Encounter Details Date Type Department Care Team Description 11/24/2019 Telephone Care Coordination [address] [place] [address] Sara Recinos, Community Health Marine Diver [address] [place] [address] [phone] [facility] Care Coordination Services Allergies Active Allergy Reactions Severity Noted Date Comments Lisinopril Edema face/lips/tongue High 04/05/2018 documented as of this encounter (statuses as of 11/24/2019) Medications Medication Sig Dispensed Refills Start Date End Date Status ciprofloxacin-dexam ethasone (CIPRODEX) 0.3-0.1 % otic suspensionIndicatio ns:Mixed hearing loss, unilateral,Chronic mastoiditis,Otitis media 4 DROPS RIGHT EAR ASNEEDED IF WATER GETS IN EAR 7.5 mL 3 01/29/2016 Active Additional information Patient not taking. Reported on 10/13/2019 8:44 AM Blood Glucose Monitoring Suppl (TrendratingUCH ULTRA SYSTEM) W/DEVICE KIT Use as directed 4 times a day as needed for Hyperglycemia (high sugar) or Hypoglycemia (low sugar). Use up to four times a day as directed 1 Kit 0 01/29/2016 Active TrendratingUCH ULTRA BLUE STRP USE TO CHECK GLUCOSE [...] 100 Each 6 08/24/2017 Active Glucose Blood (Spotlight At NightTOUCH VERIO) STRP Use up to 4 times a day E11.9 300 Strip 3 08/24/2017 Active aspirin enteric coated 81 MG TBECIndications:Typ e 2 diabetes mellitus with diabetic neuropathy, unspecified (HCC) Take 1 Tab by mouth daily. 100 Tab 3 02/10/2018 Active Blood Glucose Monitoring Suppl (TrendratingUCH VERIO) w/Device KITIndications:Type 2 diabetes mellitus with [...] with polyneuropathy ([facility]) Inject 35 Units under the skin at bedtime. 4 Vial 5 11/21/2019 Active insulin REGULAR human (NOVOLIN R RELION) 100 UNIT/ML injectionIndication s:Type 2 diabetes mellitus with polyneuropathy ([facility]) Inject 5 Units under the skin three times a day before meals. 4 Vial 3 11/21/2019 Active documented as of this encounter (statuses as of 11/24/2019) Active Problems Problem Noted Date Obsessive-compulsive disorder, [...] as of this encounter (statuses as of 11/24/2019) Resolved Problems Problem Noted Date Resolved Date [...] as of this encounter (statuses as of 11/24/2019) Immunizations Name Administration Dates Next Due Pneumococcal [...] Telephone Encounter - Sara Recinos Community [facility] Marine Diver - 11/24/2019 10:27 AM EST [facility] #1-Unable to contact spouse to see if any additional needs. LMM to return call to [facility]. documented in this encounter Plan of Treatment Upcoming Encounters Date Type Specialty Care Team Description 12/05/2019 Office Visit Otolaryngology Del Multani II, MD [address] [place] [address] [phone] 12/15/2019 Office Visit Podiatry Region, [facility] [address] [place] [address] 02/23/2020 Office Visit Family Medicine James Maria DO 132 [place] [address] [phone] Health Maintenance Due Date Last Done Comments [...] Documents on File Type Date Recorded Patient Garage Supervisor Expl anation Advanced Directive service a hi default Advanced Directive Advanced Directive Advanced Directive Advanced Directive Advanced Directive
--- OUTSIDE RECORDS SUMMARY | 2023-07-31 20:36 | External Medical Summary | Summary of Care ---
Author Name Unknown Organization [facility] Address [place] [address] Care Team Providers Care Nuclear Fuels Research Engineer Name Role Phone James Maria Primary Care Provider Reason for Visit * Reason Comments case management UTC X 1 Encounter Details Date Type Department Care Team Description 10/24/2019 Telephone Family Practice [facility] 132 [facility] [place] [address] Edwin Sherman RN case management (UTC X 1) Allergies Active Allergy Reactions Severity Noted Date Comments Lisinopril Edema face/lips/tongue High 04/05/2018 documented as of this encounter (statuses as of 10/24/2019) Medications Medication Sig Dispensed Refills Start Date End Date Status ciprofloxacin-dexam ethasone (CIPRODEX) 0.3-0.1 % otic suspensionIndicatio ns:Mixed hearing loss, unilateral,Chronic mastoiditis,Otitis media 4 DROPS RIGHT EAR ASNEEDED IF WATER GETS IN EAR 7.5 mL 3 01/29/2016 Active Additional information Patient not taking. Reported on 10/13/2019 8:44 AM Blood Glucose Monitoring Suppl (CartesianTOUCH ULTRA SYSTEM) W/DEVICE KIT Use as directed [...] as of this encounter (statuses as of 10/24/2019) Active Problems Problem Noted Date Type 2 [...] as of this encounter (statuses as of 10/24/2019) Resolved Problems Problem Noted Date Resolved Date [...] as of this encounter (statuses as of 10/24/2019) Immunizations Name Administration Dates Next Due Pneumococcal [...] Miscellaneous Notes * Telephone Encounter - Edwin Sherman RN - 10/24/2019 11:45 AM EST UTC X 1 Phoned for CM Follow up, no answer, message left on voicemail with contact information. documented in this encounter Plan of Treatment Upcoming Encounters Date Type Specialty Care Team Description 11/21/2019 Office Visit Family Medicine James Maria, 132 [facility] [place] [address] 12/15/2019 Office Visit Podiatry Region, [place] [address] [place] [address] [...] Documents on File Type Date Recorded Patient Mri Tech Expl anation Advanced Directive service a hi default Advanced Directive Advanced Directive Advanced Directive Advanced Directive Advanced Directive
--- OUTSIDE RECORDS SUMMARY | 2023-07-31 20:36 | External Medical Summary | Summary of Care ---
Author Name Unknown Organization [place] [address] Care Team Providers Care Oyster Culler Name Role Phone James Maria Primary Care Provider Reason for Visit * Reason Comments Advice Encounter Details Date Type Department Care Team Description 12/29/2019 Telephone Otolaryngology [facility] [address] [place] [address] Del Multani II, MD 132 [facility] [place] [address] Advice Allergies Active Allergy Reactions Severity Noted Date Comments Lisinopril Edema face/lips/tongue High 04/05/2018 documented as of this encounter (statuses as of 12/29/2019) Medications Medication Sig Dispensed Refills Start Date End Date Status ciprofloxacin-dexam ethasone (CIPRODEX) 0.3-0.1 % otic suspensionIndicatio ns:Mixed hearing loss, unilateral,Chronic mastoiditis,Otitis media 4 DROPS RIGHT EAR ASNEEDED IF WATER GETS IN EAR 7.5 mL 3 01/29/2016 Active Blood Glucose Monitoring Suppl (Pythagoras SolarTOUCH ULTRA SYSTEM) W/DEVICE KIT Use as directed [...] 100 Each 6 08/24/2017 Active Glucose Blood (Pythagoras SolarTOUCH VERIO) STRP Use up to 4 times a day E11.9 300 Strip 3 08/24/2017 Active aspirin enteric coated 81 MG TBECIndications:Typ e 2 diabetes mellitus with diabetic neuropathy, unspecified (HCC) Take 1 Tab by mouth daily. 100 Tab 3 02/10/2018 Active Blood Glucose Monitoring Suppl (Pythagoras SolarTOUCH VERIO) w/Device KITIndications:Type 2 diabetes mellitus with [...] as of this encounter (statuses as of 12/29/2019) Active Problems Problem Noted Date Tympanic membrane [...] as of this encounter (statuses as of 12/29/2019) Resolved Problems Problem Noted Date Resolved Date [...] as of this encounter (statuses as of 12/29/2019) Immunizations Name Administration Dates Next Due Pneumococcal [...] his " hearing problems" Please advise at [phone] documented in this encounter Plan of Treatment Upcoming Encounters Date Type Specialty Care Team Description 02/23/2020 Office Visit Family Medicine James Maria, 132 [facility] [place] [address] 03/21/2020 Office Visit Podiatry [place] [address] [place] [address] [...] Documents on File Type Date Recorded Patient Car Jockey Expl anation Advanced Directive service a hi default Advanced Directive Advanced Directive Advanced Directive Advanced Directive Advanced Directive
--- OUTSIDE RECORDS SUMMARY | 2023-07-31 20:36 | External Medical Summary | Summary of Care ---
Author Name Unknown Organization [place] [address] Care Team Providers Care Quality Assurance Associate Name Role Phone James Maria DO Primary Care Provider Reason for Referral * Evaluate & Treat - Unlimited Visits (Within 10 days (routine)) Status Reason Specialty Diagnoses / Procedures Referred By Contact Referred To Contact Authorized Specialty Services Required Physical Therapy Diagnoses Acute midline thoracic back pain Shani Gao PA-C [address] [address] Reason for Visit * Reason Comments Acute having lower back pa in is taking Motrin IB but makes him sick to his stomach and they are not helping Encounter Details Date Type Department Care Team Description 12/15/2019 Office Visit Family Practice [facility] [address] [address] Shani Gao PA-C [address] [address] [phone] Acute midline thoracic back pain*; DM type 2 nursing care encounter (HCC); Mixed conductive and sensorineural hearing loss of right ear with restricted hearing of left ear; HTN, goal below 140/90 Allergies Active Allergy Reactions Severity Noted Date Comments Lisinopril Edema face/lips/tongue High 04/05/2018 documented as of this encounter (statuses as of 12/18/2019) Medications Medication Sig Dispensed Refills Start Date [...] as of this encounter (statuses as of 12/18/2019) Active Problems Problem Noted Date Tympanic membrane [...] #27. OBESITY, BMI 30-34 (SEE ACTUAL BMI) 03/2 03/2010 Overview: Per Obesity Taxonomy DYSLIPIDEMIA, GOAL LDL [...] as of this encounter (statuses as of 12/18/2019) Resolved Problems Problem Noted Date Resolved Date [...] as of this encounter (statuses as of 12/18/2019) Immunizations Name Administration Dates Next Due Pneumococcal [...] Sign Reading Time Taken Comments Blood Pressure 136/82 12/15/2019 10:35 AM EST Pulse 88 12/15/2019 10:35 AM EST Temperature 36.7 C (98 F) 12/15/2019 10:35 AM EST Respiratory Rate 18 12/15/2019 10:35 AM EST Oxygen Saturation - - Inhaled Oxygen Concentration - - Weight 85.8 kg (189 lb 3.2 oz) 12/15/2019 10:35 AM EST Height 167.6 cm (5' 6") 12/15/2019 10:35 AM EST Body Mass Index 30.54 12/15/2019 10:35 AM EST documented in this encounter Patient Instructions * Patient Instructions* Brenda Santiago LPN - 12/15/2019 10:26 AM EST Dear Selvin Sebastian, The care of your Diabetes is very important to us. A yearly diabetic eye exam is important to protect your vision. If youre getting an eye exam done outside of [facility] please tell your Eye Doctor to fax or mail us the results of your Diabetic Eye Exam at your next visit. Our Address and Fax Number are listed below to help. Thank you for helping us to improve your Diabetes Care Our Office Address and Fax Number: James Maria, DO Family Practice [address] [facility] [address] Diabetic Retinopathy: Evaluating Your Eyes Diabetic retinopathy [...] information about this test. Date Last Reviewed: 04/02/201619995028-3524 [employer]. [address] [place] [address], [place] [address]. All rights reserved. This information is not intended as a substitute for professional medical care. Always follow your healthcare professional's instructions. documented in this encounter Progress Notes * Shani Gao PA-C - 12/15/2019 10:49 AM EST Selvin Sebastian is a 74 year old year old male who presents for: Nursing Notes: Brenda Santiago LPN 12/15/19 1034 Signed The patient has been properly identified by confirmation of name and date of . Chief Complaint Patient presents with Acute having lower back pain is taking Motrin IB but makes him sick to his stomach and they are not helping HPI: Pt having middle back pain, seems to be midline. No recent injury. He's had chronic back pain notedbefore. Taking some motrin but not always with food. Some upset stomach with this. Overall back pain persists. No numbness, tingling, radiation. REVIEW OF SYSTEMS: See HPI for pertinent positives and negatives. Patient denies addtional complaints. PAST MEDICAL HISTORY: Past Medical History: Diagnosis Date Allergic rhinitis 2004 Chronic mastoiditis 2003 Diabetes mellitus (HCC) Dysfunction [...] CITY SHOULDER ARTHROSCOPY SURGERY 01/07 spur removed Social History Tobacco Use Smoking status: Former Smoker Last attempt to quit: 11/02/1980 Years since quittin.1 Smokeless tobacco: Never Used Substance Use Topics Alcohol use: Yes Alcohol/week: 0.0 standard drinks Comment: As of 12.19.2006, the last noted alcohol intake was 1 ounces. Patient Active Problem List Diagnosis Code ADVANCE DIRECTIVE INFORMATION Mixed conductive and sensorineural hearing loss of right ear with restricted hearing of left ear H90.A31 Deafness, left H91.92 Otitis media H66.90 Chronic mastoiditis H70.10 Type 2 diabetes mellitus with hemoglobin A1c goal of less than 8.0% ([facility]) E11.9 DYSLIPIDEMIA, GOAL LDL BELOW 100 E78.5 OBESITY, BMI 30-34 (SEE ACTUAL BMI) E66.9 HTN, goal below 140/90 I10 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 Need for prophylactic vaccination and inoculation against influenza Z23 DM type 2 nursing care encounter ([facility]) E11.9 Foot deformity, bilateral M21.961, M21.962 Type 2 diabetes mellitus with polyneuropathy ([facility]) E11.42 Obsessive-compulsive disorder, unspecified F42.9 Tympanic membrane perforation, right H72.91 Review of patient's allergies indicates: Allergen Reactions Lisinopril Edema face/lips/tongue Current Outpatient Medications Medication Sig Dispense Refill insulin isophane human (NOVOLIN N RELION) 100 UNIT/ML injection Inject 35 Units under the skin at bedtime. 4 Vial 5 insulin REGULAR human (NOVOLIN R RELION) 100 UNIT/ML injection Inject 5 Units under the skin three times a day before meals. 4 Vial 3 Insulin Syringe-Needle U-100 (RELION INSULIN SYRINGE) 30G [...] 90 Cap 3 Blood Glucose Monitoring Suppl ([employer] VERIO) w/Device KIT Use as directed. Recommend [...] 100 Strip 0 Blood Glucose Monitoring Suppl (D[employer]meib[employer].comTOUCH ULTRA SYSTEM) W/DEVICE KIT Use as directed 4 times a day as needed for Hyperglycemia (high sugar) or Hypoglycemia (low sugar). Use up to four times a day as directed 1 Kit 0 ciprofloxacin-dexamethasone (CIPRODEX) 0.3-0.1 % otic suspension 4 DROPS RIGHT EAR ASNEEDED IF WATER GETS IN EAR 7.5 mL 3 cyclobenzaprine (FLEXERIL) 5 MG Tablet Take 1 Tab by mouth 3 times a day as needed for Muscle spasms. 30 Tab 0 zoster vac recomb adjuvanted (SHINGRIX) 50 MCG/0.5ML injection Inject 0.5 mL into a large muscle now and repeat dose in 60 to 180 days 1 Each 1 Sildenafil Citrate (VIAGRA) 50 MG Tablet Take 1 Tab by mouth as needed for Erectile Dysfunction. (Patient not taking: Reported on 10/13/2019) 5 Tab 6 Nursing Notes and Vital Signs reviewed. PHYSICAL EXAM: VITALS: BP 136/82 | Pulse 88 | Temp (Src) 98 (Tympanic) | Resp 18 | Ht 5' 6" (1.676m) | Wt 189 lbs 3.2 oz (85.821kg) | BMI 30.54 kg/m | BSA 2 m GENERAL: Patient is alert, well appearing, well nourished, no obvious distress, +decreased hearing noted. HEAD: Normocephalic, no masses, lesions, or other abnormalities noted. EYE EXAM: Normal conjunctiva, PERRL and EOM's intact. Chest: normal chest symmetry and expansion, normal AP diameter. LUNGS: Normal respiratory rate and normal respiratory effort. No wheeze, rhonchi or rales HEART: RRR BACK: Back is symmetrical on inspection and there is no deformity. +TTP midline over thoracic spine. SKIN: Normal, no rashes and no bruising. EXTREMITIES: No clubbing, cyanosis or edema. No deformities, FROM throughout. Assessment: Acute midline thoracic back pain (Primary) - XR T SPINE AP AND LATERAL - PHYSICAL THERAPY REFERRAL OP DM type 2 nursing care encounter (HCC) - TELEMEDICINE DIABETIC EYE Mixed conductive and sensorineural hearing loss of right ear with restricted hearing of left ear Stable HTN, goal below 140/90 Stable Will xray back due to midline tenderness, no recent imaging. Will contact with results. PT as directed for back, okay to use ibuprofen with food, if not tolerating with food then stop andmy use tylenol. Follow up for failure to improve or if acute worsening. Pt given written instructions for plan as discussed today Patient Instructions Dear Selvin Sebastian, The care of your Diabetes is very important to us. A yearly diabetic eye exam is important to protect your vision. If youre getting an eye exam done outside of [facility] please tell your Eye Doctor to fax or mail us the results of your Diabetic Eye Exam at your next visit. Our Address and Fax Number are listed below to help. Thank you for helping us to improve your Diabetes Care Our Office Address and Fax Number: James Maria, DO Family Practice [address] [address] Diabetic Retinopathy: Evaluating Your Eyes Diabetic retinopathy [...] information about this test. Date Last Reviewed: 04/02/201619996685-6854 [employer]. [address] [place] [address]. All rights reserved. This information is not intended as a substitute for professional medical care. Always follow your healthcare professional's instructions. Shani Gao PA-C Family Practice [place] [id number] * Brenda Santiago LPN - 12/15/2019 10:25 AM EST The importance of having a yearly diabetic eye exam has been discussed with patient. Order and/or Referral placed along with patient instructions. Provider made aware. Brenda Santiago LPN documented in this encounter Nursing Notes * Brenda Santiago LPN - 12/15/2019 10:34 AM EST The patient has been properly identified by confirmation of name and date of . Chief Complaint Patient presents with Acute having lower back pain is taking Motrin IB but makes him sick to his stomach and they are not helping documented in this encounter Plan of Treatment Upcoming Encounters Date Type Specialty Care Team Description 02/23/2020 Office Visit Family Medicine James Maria, [address] [address] 03/21/2020 Office Visit Podiatry Region, [facility] [address] [address] Scheduled Referrals Name Type Priority Associated Diagnoses Orde r Schedule PHYSICAL THERAPY REFERRAL OP Referral Within 10 days (routine) Acute midline thoracic back pain Ordered: 12/15/2019 Health Maintenance Due Date Last Done Comments [...] Name Priority Date/Time Associated Diagnosis Comments XR T SPINE AP AND LATERAL STAT 12/15/2019 11:18 AM EST Acute midline thoracic back pain TELEMEDICINE DIABETIC EYE Routine 12/15/2019 DM type 2 nursing care encounter (HCC) documented in this encounter Results * XR T SPINE AP AND LATERAL (12/15/2019 11:18 AM EST) Specimen Impressions Performed At IMPRESSION 1. Multilevel degenerative change of the spine. [facility] Narrative Performed At EXAM XR T SPINE AP AND LATERAL-12/15/2019 11:18 am HISTORY midline mid thoracic back pain over a month, worsening. no acute injury. COMPARISON None TECHNIQUE AP, lateral, swimmer's views thoracic spine FINDINGS Convex left curvature upper thoracic spine. No radiographically apparent fracture. Multilevel endplate osteophytes. [facility] Procedure Note Interface, Rad In - 12/15/2019 11:36 AM EST EXAM XR T SPINE AP AND LATERAL-12/15/2019 11:18 am HISTORY midline mid thoracic back pain over a month, worsening. no acute injury. COMPARISON None TECHNIQUE AP, lateral, swimmer's views thoracic spine FINDINGS Convex left curvature upper thoracic spine. No radiographically apparentfracture. Multilevel endplate osteophytes. IMPRESSION IMPRESSION 1. Multilevel degenerative change of the spine. Performing Organization Address City/State/Zipcod e Phone Number [facility] * TELEMEDICINE DIABETIC EYE (12/15/2019) Specimen Narrative Performed At documented in this encounter Visit Diagnoses Diagnosis Acute midline thoracic back pain- Primary DM type 2 nursing care encounter (HCC) Type II or unspecified type diabetes mellitus without mention of complication, not stated as uncontrolled Mixed conductive and sensorineural hearing loss of right ear with restricted hearing of left ear HTN, goal below 140/90 Unspecified essential hypertension documented in this encounter Advance Directives Documents on File Type Date Recorded Patient Private Branch Exchange Service Adviser Expl anation Advanced Directive service a hi default Advanced Directive Advanced Directive Advanced Directive Advanced Directive Advanced Directive
--- OUTSIDE RECORDS SUMMARY | 2023-07-31 20:37 | External Medical Summary | Summary of Care ---
Author Name Unknown Organization [place] [address] Care Team Providers Care Inside Wirer Name Role Phone Rylan Mariar Sophy Primary Care Provider Reason for Visit * Reason Comments Medication Administration Flu and/or Pne umo Inj Encounter Details Date Type Department Care Team Description 08/22/2019 Nurse Only Ancillary [facility] [address] [place] [address] [facility] [address] [facility] [place] [address] Medication Administration (Flu and/or Pneu... Allergies Active Allergy Reactions Severity Noted Date Comments Lisinopril Edema face/lips/tongue High 04/05/2018 documented as of this encounter (statuses as of 08/22/2019) Medications Medication Sig Dispensed Refills Start Date End Date Status ciprofloxacin-dex amethasone (CIPRODEX) 0.3-0.1 % otic suspensionIndicat ions:Mixed hearing loss, unilateral,Chroni c mastoiditis,Otiti s media 4 DROPS RIGHT EAR ASNEEDED IF WATER GETS IN EAR 7.5 mL 3 01/29/2016 Active Blood Glucose Monitoring Suppl ([employer] BioscienceTOUCH ULTRA SYSTEM) W/DEVICE KIT Use as directed 4 times a day as needed for Hyperglycemia (high sugar) or Hypoglycemia (low sugar). Use up to four times a day as directed 1 Kit 0 01/29/2016 Active [employer] BioscienceTOUCH ULTRA BLUE STRP USE TO CHECK GLUCOSE 4 TIMES DAILY 100 Strip 0 11/13/2016 Active ONETOUCH DELICA LANCETS 33G MISC USE ONE TO CHECK GLUCOSE 4 TIMES DAILY 100 Each 0 11/13/2016 Active Sildenafil Citrate (VIAGRA) 50 MG TabletIndications :Impotence of organic origin Take 1 Tab by mouth as needed for Erectile Dysfunction. 5 Tab 6 08/24/2017 Active Insulin Pen Needle (RELION PEN NEEDLES) 32G X 4 MM Use as directed with flexpen 100 Each 6 08/24/2017 Active ONETOUCH DELICA LANCETS 33G MISC Use 3 times daily for checking blood sugars 100 Each 3 08/24/2017 Active Glucose Blood (ONETOUCH VERIO) STRP Use up to 4 times a day E11.9 300 Strip 3 08/24/2017 Active insulin isophane human (NOVOLIN N RELION) 100 UNIT/ML injection Inject 5 Units under the skin 2 times a day. 1 Vial 5 10/09/2017 Active RELION INSULIN SYRINGE 30G X 5/16" 0.3 ML MISCIndications:T ype 2 diabetes mellitus with hemoglobin A1c goal of less than 7.0% (HCC) For insulin dosing 4 times daily 1 Box Dosing Unit 3 01/11/2018 Active aspirin enteric coated 81 MG TBECIndications:T ype 2 diabetes mellitus with diabetic neuropathy, unspecified (HCC) Take 1 Tab by mouth daily. 100 Tab 3 02/10/2018 Active Blood Glucose Monitoring Suppl (ONETOUCH VERIO) w/Device KITIndications:Ty pe 2 diabetes mellitus with hemoglobin A1c [...] 3 01/26/2019 Active MetFORMIN (GLUCOPHAGE) 1000 MG TabletIndications :Type 2 diabetes mellitus with hemoglobin A1c goal of less than 7.0% (HCC) TAKE ONE TABLET BY MOUTH TWICE DAILY WITH MORNING AND EVENING MEALS 180 Tab 3 01/26/2019 Active insulin glargine (LANTUS SOLOSTAR) 100 UNIT/ML SOPNIndications:T ype 2 diabetes mellitus with hemoglobin A1c goal of less than 7.0% (HCC) 35 units at bedtime. 15 Pre-filled Pen Syringe Dosing Unit 3 01/26/2019 Active NOVOLOG FLEXPEN 100 UNIT/ML SOPNIndications:T ype 2 diabetes mellitus with hemoglobin A1c goal of less than 7.0% (HCC) Inject 5 Units under the skin three times a day with meals. 5 units with Breakfast, lunch, and dinner 5 Pre-filled Pen Syringe Dosing Unit 3 01/26/2019 Active tamsulosin (FLOMAX) 0.4 MG Capsule Take 1 Cap by mouth daily. 90 Cap 3 01/26/2019 Active NOVOLOG FLEXPEN 100 UNIT/ML SOPNIndications:T ype 2 diabetes mellitus with hemoglobin A1c goal of less than 7.0% (HCC) INJECT 5 UNITS SUBCUTANEOUSLY THREE TIMES DAILY WITH MEALS 15 mL 3 01/26/2019 Active documented as of this encounter (statuses as of 08/22/2019) Active Problems Problem Noted Date Type 2 [...] as of this encounter (statuses as of 08/22/2019) Resolved Problems Problem Noted Date Resolved Date [...] as of this encounter (statuses as of 08/22/2019) Immunizations Name Administration Dates Next Due Pneumococcal [...] Travel End documented as of this encounter Patient Instructions * Patient Instructions* Leighann Ferreira LPN - 08/22/2019 1:46 PM EDT ~~PATIENT INSTRUCTIONS FOR FLU SHOT~~ Possible [...] documented in this encounter Progress Notes * Leighann Ferreira LPN - 08/22/2019 1:46 PM EDT PRE - ADMINISTRATION DOCUMENTATION Are you allergic to latex? No Are you experiencing any cold symptoms or fever? No Have you had Guillain-Minturn Syndrome (an illness that causes paralysis) within the last 6 weeks? No Have you had the flu shot in the past? YES Have you ever had a reaction to the flu shot? No Leighann Ferreira LPN, 08/22/2019 1:46 PM Immunization Administration Documentation Time Out Procedure Performed: Yes Patient Identified (Ask Name/Date of ): Yes Does the patient have a fever greater than 101 degrees today? No Patient allergic to latex? No VFC Stock: No Immunization(s) verified: Yes , Immunization Name: Flu, VIS Sheet(s) given: Yes Verified Side and Site: Yes Verified Shot(s) with Parent(s)/Patient: Yes documented in this encounter Plan of Treatment Upcoming Encounters Date Type Specialty Care Team Description 09/08/2019 Office Visit Podiatry [address] [id number] Health Maintenance Due Date Last Done Comments DIABETES-EYE EXAM 06/30/2017 06/30/2016, , 03/02/2011 (Done elsewhere), Additional history exists Yearly B-12 01/11/2019 01/11/2018 DIABETES-FOOT EXAM 06/07/2019 06/07/2018, 0 05/13/2017, 05/09/2016, Additional history exists *DEPRESSION SCREENING,ANNUAL FOR PTS 12 AND OVER 06/09/2019 DIABETES-HGBA1C EVERY 6 MONTHS 06/12/2019 12/13/2018, 01/11/2018, 09/10/2017, Additional history exists Influenza Vaccine (FLU shot) (#1) 2019 10/21/2018, 09/10/2017, 09/16/2016, Additional history exists DIABETES-URINE MICROALBUMIN EVERY 12 MONTHS 12/13/2019 12/13/2018, 01/11/2018, 12/24/2015, Additional history exists DTaP,Tdap,and Td Vaccines (2 - Td) 10/21/2021 10/21/2011, 11/09/2003 Pneumococcal Vaccine: 65+ Years Completed 12/24/2015, 07/23/2011 MENINGOCOCCAL (MENACTRA) Aged Out No longer eligible based on patient's age to complete this topic documented as of this encounter Implants Not on filedocumented as of this encounter Visit Diagnoses Diagnosis Need for prophylactic vaccination and inoculation against influenza- Primary documented in this encounter Advance Directives Documents on File Type Date Recorded Patient Transcript Clerk Expl anation Advanced Directive service a hi default Advanced Directive Advanced Directive Advanced Directive Advanced Directive Advanced Directive
--- OUTSIDE RECORDS SUMMARY | 2023-07-31 20:37 | External Medical Summary | Summary of Care ---
Author Name Unknown Organization [place] [address] Care Team Providers Care Cafeteria Table Attendant Name Role Phone James Maria Primary Care Provider Reason for Visit * Reason Comments case management Encounter Details Date Type Department Care Team Description 10/14/2019 Telephone General Internal Medicine [facility] [address] [place] [address] Devora Angel RN [address] [place] [address] [phone] case management Allergies Active Allergy Reactions Severity Noted Date Comments Lisinopril Edema face/lips/tongue High 04/05/2018 documented as of this encounter (statuses as of 10/14/2019) Medications Medication Sig Dispensed Refills Start Date End Date Status ciprofloxacin-dexa methasone (CIPRODEX) 0.3-0.1 % otic suspensionIndicati ons:Mixed hearing loss, unilateral,Chronic mastoiditis,Otitis media 4 DROPS RIGHT EAR ASNEEDED IF WATER GETS IN EAR 7.5 mL 3 01/29/20 16 Active Additional information Patient not taking. Reported on 10/13/2019 8:44 AM Blood Glucose Monitoring Suppl (ONETOUCH ULTRA SYSTEM) W/DEVICE KIT Use as directed 4 times a day as needed for Hyperglycemia (high sugar) or Hypoglycemia (low sugar). Use up to four times a day as directed 1 Kit 0 01/29/20 16 Active Additional information Patient not taking. Reported on 10/13/2019 8:44 AM ONETOUCH ULTRA BLUE STRP USE TO CHECK GLUCOSE 4 TIMES DAILY 100 Strip 0 11/13/19 17 Active Additional information Patient not taking. Reported on 10/13/2019 8:44 AM ONETOUCH DELICA LANCETS 33G MISC USE ONE TO CHECK GLUCOSE 4 TIMES DAILY 100 Each 0 11/13/19 17 Active Additional information Patient not taking. Reported on 10/13/2019 8:44 AM Sildenafil Citrate (VIAGRA) 50 MG TabletIndications: Impotence of organic origin Take 1 Tab by mouth as needed for Erectile Dysfunction. 5 Tab 6 08/24/20 17 Active Additional information Patient not taking. Reported on 10/13/2019 8:44 AM Insulin Pen Needle (RELION PEN NEEDLES) 32G X 4 MM Use as directed with flexpen 100 Each 6 08/24/20 17 Active Additional information Patient not taking. Reported on 10/13/2019 8:44 AM ONETOUCH DELICA LANCETS 33G MISC Use 3 times daily for checking blood sugars 100 Each 3 08/24/20 17 Active Glucose Blood (ONETOUCH VERIO) STRP Use up to 4 times a day E11.9 300 Strip 3 08/24/20 17 Active Additional information Patient not taking. Reported on 10/13/2019 8:44 AM aspirin enteric coated 81 MG TBECIndications:Ty pe 2 diabetes mellitus with diabetic neuropathy, unspecified (HCC) Take 1 Tab by mouth daily. 100 Tab 3 02/11/20 18 Active Additional information Patient not taking. Reported on 10/13/2019 8:44 AM Blood Glucose Monitoring Suppl (ONETOUCH VERIO) w/Device KITIndications:Typ e 2 diabetes mellitus with hemoglobin A1c goal of 7.0%-8.0% (HCC) Use as directed. Recommend check glucose levels at least 2 times daily-once in AM before breakfast and once 2 hours after evening meal. 1 Kit 0 05/12/20 18 Active Additional information Patient not taking. Reported on 10/13/2019 8:44 AM amLODIPine (NORVASC) 5 MG Tablet Take 1 Tab by mouth daily. 90 Tab 3 01/27/20 19 Active Additional information Patient not taking. Reported on 10/13/2019 8:44 AM atorvaSTATin (LIPITOR) 40 MG Tablet Take 1 Tab by mouth daily. 90 Tab 3 01/27/20 19 Active Additional information Patient not taking. Reported on 10/13/2019 8:44 AM MetFORMIN (GLUCOPHAGE) 1000 MG TabletIndications: Type 2 diabetes mellitus with hemoglobin A1c goal of less than 7.0% (HCC) TAKE ONE TABLET BY MOUTH TWICE DAILY WITH MORNING AND EVENING MEALS 180 Tab 3 01/27/20 Active Additional information Patient not taking. Reported on 10/13/2019 8:44 AM tamsulosin (FLOMAX) 0.4 MG Capsule Take 1 Cap by mouth daily. 90 Cap 3 01/27/20 Active Additional information Patient not taking. Reported on 10/13/2019 8:44 AM NOVOLOG FLEXPEN 100 UNIT/ML SOPNIndications:Ty pe 2 diabetes mellitus with hemoglobin A1c goal of less than 7.0% (HCC) INJECT 5 UNITS SUBCUTANEOUSLY THREE TIMES DAILY WITH MEALS 15 mL 3 01/27/20 Active Additional information Patient not taking. Reported on 10/13/2019 8:44 AM insulin REGULAR human (NOVOLIN R RELION) 100 UNIT/ML injectionIndicatio ns:Type 2 diabetes mellitus with polyneuropathy (HCC) Inject 5 Units under the skin three times a day before meals. 1 Vial 3 10/13/20 19 Active insulin isophane human (NOVOLIN N RELION) 100 UNIT/ML injectionIndicatio ns:Type 2 diabetes mellitus with polyneuropathy (HCC) Inject 35 Units under the skin at bedtime. 1 Vial 5 10/13/20 19 Active Insulin Syringe-Needle U-100 (RELION INSULIN SYRINGE) 30G X 5/16" 0.3 ML MISCIndications:Ty pe 2 diabetes mellitus with polyneuropathy (HCC),Type 2 diabetes mellitus with hemoglobin A1c goal of less than 8.0% (HCC) Use up to 4 x a day for insulin dosing E11.9 1 Box Dosing Unit 3 10/14/20 19 Active RELION INSULIN SYRINGE 30G X 5/16" 0.3 ML MISCIndications:Ty pe 2 diabetes mellitus with hemoglobin A1c goal of less than 7.0% (HCC) For insulin dosing 4 times daily 1 Box Dosing Unit 3 01/12/20 18 019 Discontinued documented as of this encounter (statuses as of 10/14/2019) Active Problems Problem Noted Date Type 2 [...] as of this encounter (statuses as of 10/14/2019) Resolved Problems Problem Noted Date Resolved Date [...] as of this encounter (statuses as of 10/14/2019) Immunizations Name Administration Dates Next Due Pneumococcal [...] encounter Miscellaneous Notes * Telephone Encounter - Devora Angel RN - 10/14/2019 12:03 PM EST Called Cristal Reed. Novolin N and R insulin received and $0 copay for patient They are vials and he will need insulin syringes ordered to administer insulin. I pended order for your approval. I spoke with patient and spouse. They will leaf size picker insulin and start using today. I will send ARABELLA for home visit to see what meds he has in home, what he needs, and see what he understands. Edwin Sherman RN case manager to follow up next week. Thank you, Devora Angel RN documented in this encounter Plan of Treatment Upcoming Encounters Date Type Specialty Care Team Description 11/21/2019 Office Visit Family Medicine James Maria DO [address] [facility] [place] [address] 12/15/2019 Office Visit Podiatry Region, [place] [address] [place] [address] [...] Documents on File Type Date Recorded Patient Belt Repairer Expl anation Advanced Directive service a hi default Advanced Directive Advanced Directive Advanced Directive Advanced Directive Advanced Directive
--- OUTSIDE RECORDS SUMMARY | 2023-07-31 20:37 | External Medical Summary | Summary of Care ---
Author Name Unknown Organization [place] [address] Care Team Providers Care Bowl Turner Name Role Phone James Maira DO Primary Care Provider Reason for Referral * Evaluate & Treat - Unlimited Visits (Within 30 days (routine)) Status Reason Specialty Diagnoses / Procedures Referred By Contact Referred To Contact Authorized Specialty Services Required Optometry Diagnoses DM type 2 nursing care encounter (HCC) James Maria DO [address] [address] * Evaluate & Treat - Unlimited Visits (Within 10 days (routine)) Status Reason Specialty Diagnoses / Procedures Referred By Contact Referred To Contact Authorized Specialty Services Required Impregnator Electrolytic Capacitors Diagnoses Type 2 diabetes mellitus with hemoglobin A1c goal of less than 8.0% (HCC) James Maria DO [address] [place] [address] Reason for Visit * Reason Comments Follow Up return, DM shoes pap erwork Encounter Details Date Type Department Care Team Description 10/13/2019 Office Visit Family [facility] [address] [address] James Maria DO [address] [place] [address] [phone] Type 2 diabetes mellitus with hemoglobin A1c goal of less than 8.0% ([facility])*; Other bed bug exterminator (current) drug therapy; DM type 2 nursing care encounter (HCC); Risk and functional assessment Allergies Active Allergy Reactions Severity Noted Date Comments Lisinopril Edema face/lips/tongue High 04/05/2018 documented as of this encounter (statuses as of 10/13/2019) Medications Medication Sig Dispensed Refills Start Date [...] not taking. Reported on 10/13/2019 8:44 AM RELION INSULIN SYRINGE 30G X 5/16" 0.3 ML MISCIndications: Type 2 diabetes mellitus with hemoglobin A1c goal of less than 7.0% (HCC) For insulin dosing 4 times daily 1 Box Dosing Unit 3 8 Active Additional information Patient not taking. Reported on 10/13/2019 8:44 AM aspirin enteric coated 81 MG TBECIndications: Type 2 diabetes mellitus with diabetic neuropathy, unspecified (HCC) Take 1 Tab by mouth daily. 100 Tab 3 8 Active Additional information Patient not taking. Reported on 10/13/2019 8:44 AM Blood Glucose Monitoring Suppl ([employer]) w/Device KITIndications:T ype 2 diabetes mellitus with [...] as of this encounter (statuses as of 10/13/2019) Active Problems Problem Noted Date Type 2 [...] as of this encounter (statuses as of 10/13/2019) Resolved Problems Problem Noted Date Resolved Date [...] as of this encounter (statuses as of 10/13/2019) Immunizations Name Administration Dates Next Due Pneumococcal [...] 10 times. Repeat this throughout the day. [employer] Patient Education Copyright 2008 [employer] except where otherwise noted. Preventing Falls: Moving [...] that mean climbing, even on a stepstool. [employer] Patient Education Copyright 2008 - 2010 [employer] except where otherwise noted. Treating Urinary Incontinence [...] calluses yourself. Talk to your doctor or rn labor and delivery (a doctor who specializes in foot care) [...] the area doesnt appear to be healing. [id number] [employer], [address] [place] [address], [place] [address]. All rights reserved. This information is not intended as a substitute for professional medical care. Always follow your healthcare professional's instructions. Dear Selvin Sebastian, The care of your Diabetes is very important to us. A yearly diabetic eye exam is important to protect your vision. If youre getting an eye exam done outside of [facility] please tell your Eye Doctor to fax or mail us the results of your Diabetic Eye Exam at your next visit. Our Address and Fax Number are listed below to help. Thank you for helping us to improve your Diabetes Care Our Office Address and Fax Number: James Maria, DO Family Practice [address] [address] Diabetic Retinopathy: Evaluating Your Eyes Diabetic retinopathy [...] information about this test. Date Last Reviewed: 04/02/201619990429-0105 [employer]. [address] [place] [address]. All rights reserved. This information is not [...] over medication cost. Will attempt to get complex case manager to help with the coordination of this patient's insurance understanding and the ability for him to procure medications in the future. Also changed his insulin orders to cheaper versions of insulin at [facility] that he could hopefully have paid for [...] A1C; Future - POPULATION HEALTH REFERRAL OP 3. Other bed bug exterminator (current) drug therapy - VITAMIN B12; Future 4. DM type 2 nursing care encounter (HCC) - OPTOMETRY (DIABETES-EXTENDED) REFERRAL OP 5. 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, M21.962 Type 2 diabetes mellitus with polyneuropathy ([facility]) E11.42 Past Medical History: Diagnosis Date Allergic rhinitis 2003 Chronic mastoiditis 2003 Dysfunction of eustachian tube [...] foot deformity MASTOID SURGERY REVISION/APICECTOMY age 18 [facility] SHOULDER ARTHROSCOPY SURGERY [...] 90 Cap 3 Blood Glucose Monitoring Suppl (ONETOUCH VERIO) [...] 1 Box Dosing Unit 3 Glucose Blood (AvensoTOUCH VERIO) STRP Use up to 4 times [...] Edema face/lips/tongue James Maria DO Family Practice [address] [address] (This note was completed using the dictation [...] Visit Family Medicine James Maria DO 132 [facility] [place] [address] 12/15/2019 Office Visit Podiatry [place] [address] [place] [address] Scheduled Orders Name Type Priority Associated Diagnoses Orde r Schedule HEMOGLOBIN A1C Lab Routine Type 2 diabetes mellitus with hemoglobin A1c goal of less than 8.0% (HCC) Expected: 10/13/2019 (Approximate), Expires: 10/12/2020 VITAMIN B12 Lab Routine Other bed bug exterminator (current) drug therapy Expected: 10/13/2019, Expires: 10/12/2020 [...] of less than 8.0% (HCC)- Primary Other bed bug exterminator (current) drug therapy DM type 2 nursing care encounter (HCC) Type II or unspecified type diabetes mellitus without mention of complication, not stated as uncontrolled Risk and functional assessment Screening for unspecified condition documented in this encounter Advance Directives Documents on File Type Date Recorded Patient Kelp Gatherer Expl anation Advanced Directive service a hi default Advanced Directive Advanced Directive Advanced Directive Advanced Directive Advanced Directive
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
--- OUTSIDE RECORDS SUMMARY | 2023-07-31 20:37 | External Medical Summary | Summary of Care ---
Author Name Unknown Organization [facility] [address] Care Team Providers Care Commercial Baker Helper Name Role Phone James Maria Primary Care Provider Reason for Visit * Reason Comments case management Encounter Details Date Type Department Care Team Description 10/14/2019 Telephone General Internal Medicine [facility] [address] [place] [address] Devora Angel RN [address] [place] [address] [phone] case management Allergies Active Allergy Reactions Severity Noted Date Comments Lisinopril Edema face/lips/tongue High 04/05/2018 documented as of this encounter (statuses as of 10/17/2019) Medications Medication Sig Dispensed Refills Start Date [...] as of this encounter (statuses as of 10/17/2019) Active Problems Problem Noted Date Type 2 [...] as of this encounter (statuses as of 10/17/2019) Resolved Problems Problem Noted Date Resolved Date [...] as of this encounter (statuses as of 10/17/2019) Immunizations Name Administration Dates Next Due Pneumococcal [...] spoke with patient and spouse. They will meat pickler insulin and start using today. I will send ARABELLA for home visit to see what meds he has in home, what he needs, and see what he understands. Edwin Sherman RN case manager to follow up next week. Thank you, Devora Angel RN documented in this encounter Plan of Treatment Upcoming Encounters Date Type Specialty Care Team Description 10/17/2019 Home Visit Family Medicine Sara Recinos, Community Health Press Operator [place] [address] [facility] [place] [address] Arrived 11/21/2019 Office Visit Family Medicine James Maria DO 132 [facility] [place] [address] [phone] 12/15/2019 Office Visit Podiatry [facility] [address] [place] [...] Documents on File Type Date Recorded Patient Farm Demonstrator Expl anation Advanced Directive service a hi default Advanced Directive Advanced Directive Advanced Directive Advanced Directive Advanced Directive
--- OUTSIDE RECORDS SUMMARY | 2023-07-31 20:37 | External Medical Summary | Summary of Care ---
Author Name Unknown Organization [place] [address] Care Team Providers Care Block Hacker Name Role Phone Yariel Mariaalessandro Dyefiliberto Primary Care Provider Reason for Visit * Reason Comments case management Encounter Details Date Type Department Care Team Description 10/14/2019 Administrative Services OfficerChaperon [facility] [address] [place] [address] Devora Angel RN [address] [place] [address] [phone] Medical home patient encounter*; Type 2 diabetes mellitus with hemoglobin A1c goal of less than 8.0% ([facility]); HTN, goal below 140/90; Mixed hearing loss, unilateral Allergies Active Allergy Reactions Severity Noted Date [...] 10/13/2019 8:44 AM Blood Glucose Monitoring Suppl ([email or web address] ULTRA SYSTEM) W/DEVICE KIT Use as directed [...] as of this encounter Progress Notes * Devora Angel RN - 10/14/2019 12:47 PM EST Case Management Assessment- Comprehensive assessment. PMH: DM; Dyslipidemia; HTN; James foot deformity; Hearing loss; Otitis media; Obesity. Is this call for a hospital, halfway or rehab facility discharge to home? No S: Reports: Patient stopped all medications for a while(?). States he was in the donut hole and he wasn't paying $500 for insulin. Saw PCP yesterday and he ordered Novolin N and R insulin vials sent to [facility]. He didn't pick it up. [facility] called and it will cost $0 copay. Needs syringes.Spouse states he used to use syringes and he should be fine with it. She doesn't know what he takesor that he had stopped meds. They are receptive to ARABELLA making a home visit to try to see what is needed. States he did use mail order pharmacy and there was a problem with that. He was supposed to get labs done yesterday but he left without getting them. Spouse will make sure he gets them done nextweek. He is not homebound so he refuses home health. He sleeps a lot and voids a lot. Spouse stateshe drinks Coors Light and white birch beer. Last HGB A1C in 12-13-18 when he was taking medications was 14.3. Increased edema: denies Chest pain denies Increased shortness of breath: denies Chills / Sweats / Fever: denies fever Fall: denies any falls since last Care Management encounter assistive device:none Appetite: denies nausea, vomiting, burning, decreased appetite Bowel: denies problems Bladder: denies problems and increased urinary frequency Medications: Stopped everything and cost O: Phone visit for Comprehensive assessment. Spoke with Farhana-spouse and Selvin. Alert and oriented. Lives in apartment in [place] alone. Spouse visits often but doesn't stay with him. Spouse works nights in [employer] [facility]. Patient still drives. Always out and about. Needs a lot of instruction on why he needs to take medications and keep his BS down. Spouse seems very concerned and will help as much as she can. Medications: cost and does not understand purpose [...] understand some instructions, process some information P: Administrative Services Officer Interventions: Discussed diabetes and how high BS readings will harm all organs inside. Need to check BS before each meal and record. Need to pick up worker insulin and syringes today and start using them. Self Management Action Plan established Updated managing provider Reinforced fluid / diet restrictions Reinforced sodium restriction Reinforced safety education / fall prevention Reinforced medication regimen - timing / dosing / purpose- Larisa N and R Explained/reinforced role of shelter case manager. Encouraged to call with any issues or concerns. Gave direct phone number and contact information. Referral for [facility] home visit early week of 10-17-19. Patient stopped taking all medications due to cost. He is a very bad diabetic. Stopped all insulin as he was in the [facility]. Saw 10-13-19 and he was placed on cheaper form of insulin. He has a glucose monitor in home but doesn't use it. Seewhat he has in the home as far as monitor, are the strips out of date? What oral pills does he have, what does he need ordered. See about Care site Mail order pharmacy as he has [facility] [employer] insurance. See what foods he eats. Spouse told me he drinks Coors light and white birch beer. Please call spouse Farhana Sebastian at [phone] to set up visit. Also she confirmed his [place] is [address] [place], [place] [address] PCP Notified of enrollment in CM/HM program: Yes SNP Member? No Re-evaluation of plan of care and progress towards goals achievement: Kept MD appt. Receptive to home visit. Agrees to calls from case management. Plan to call patient in one week to reassess and update plan of care, instructed to call Administrative Services Officer or Primary Care Provider with change in symptoms or as needed before next follow-up, verbalizes understanding and agrees with plan. Devora Angel RN Outpatient Administrative Services Officer documented in this encounter Plan of Treatment Upcoming Encounters Date Type Specialty Care Team Description 11/21/2019 Office Visit Family Medicine James Maria, [address] [facility] [place] [address] 12/15/2019 [place] [address] [place] [address] [...] home patient encounter- Primary Other specified examination Type 2 diabetes mellitus with hemoglobin A1c goal of less than 8.0% ([facility]) HTN, goal below 140/90 Unspecified essential hypertension Mixed hearing loss, unilateral documented in this encounter Advance Directives Documents on File Type Date Recorded Patient Crown Blocker Expl anation Advanced Directive service a hi default Advanced Directive Advanced Directive Advanced Directive Advanced Directive Advanced Directive
--- OUTSIDE RECORDS SUMMARY | 2023-07-31 20:37 | External Medical Summary | Summary of Care ---
Author Name Unknown Organization [facility] Address [facility] [place] [address] Care Team Providers Care Gerentological Physiotherapist Name Role Phone James Maria Primary Care Provider Reason for Visit * Reason Comments case management UTC X 1 Encounter Details Date Type Department Care Team Description 10/18/2019 Telephone Family Practice [facility] 132 [facility] [place] [address] Edwin Sherman RN case management (UTC X 1) Allergies Active Allergy Reactions Severity Noted Date Comments Lisinopril Edema face/lips/tongue High 04/05/2018 documented as of this encounter (statuses as of 10/18/2019) Medications Medication Sig Dispensed Refills Start Date End Date Status ciprofloxacin-dexam ethasone (CIPRODEX) 0.3-0.1 % otic suspensionIndicatio ns:Mixed hearing loss, unilateral,Chronic mastoiditis,Otitis media 4 DROPS RIGHT EAR ASNEEDED IF WATER GETS IN EAR 7.5 mL 3 01/29/2016 Active Additional information Patient not taking. Reported on 10/13/2019 8:44 AM Blood Glucose Monitoring Suppl (EPAM SystemsTOUCH ULTRA SYSTEM) W/DEVICE KIT Use as [...] as of this encounter (statuses as of 10/18/2019) Active Problems Problem Noted Date Type 2 [...] as of this encounter (statuses as of 10/18/2019) Resolved Problems Problem Noted Date Resolved Date [...] as of this encounter (statuses as of 10/18/2019) Immunizations Name Administration Dates Next Due Pneumococcal [...] Telephone Encounter - Edwin Sherman RN - 10/18/2019 1:18 PM EST UTC X 1 Phoned for CM Follow up, no answer, message left on voicemail with contact information. documented in this encounter Plan of Treatment Upcoming Encounters Date Type Specialty Care Team Description 11/21/2019 Office Visit Family Medicine James Maria, 132 [facility] [place] [address] 12/15/2019 Office Visit Podiatry Region, [facility] [address] [...] Documents on File Type Date Recorded Patient Continuing Education Specialist Expl anation Advanced Directive service a hi default Advanced Directive Advanced Directive Advanced Directive Advanced Directive Advanced Directive
--- OUTSIDE RECORDS SUMMARY | 2023-07-31 20:37 | External Medical Summary | Summary of Care ---
Author Name Unknown Organization [place] [address] Care Team Providers Care Benefits Clerk Name Role Phone Crow James Dyefiliberto Primary Care Provider Reason for Visit * Reason Comments Follow Up nail care Encounter Details Date Type Department Care Team Description 09/15/2019 Office Visit Podiatry [facility] 132 [facility] [place] [address] [facility] [address] [place] [address] Onychomycosis*; DM type 2 with diabetic peripheral neuropathy (HCC) Allergies Active Allergy Reactions Severity Noted Date Comments Lisinopril Edema face/lips/tongue High 04/05/2018 documented as of this encounter (statuses as of 09/15/2019) Medications Medication Sig Dispensed Refills Start Date End Date Status ciprofloxacin-dex amethasone (CIPRODEX) 0.3-0.1 % otic suspensionIndicat ions:Mixed hearing loss, unilateral,Chroni c mastoiditis,Otiti s media 4 DROPS RIGHT EAR ASNEEDED IF WATER GETS IN EAR 7.5 mL 3 01/29/2016 Active Blood Glucose Monitoring Suppl (PowerInboxTOUCH ULTRA SYSTEM) W/DEVICE KIT Use as directed 4 times a day as needed for Hyperglycemia (high sugar) or Hypoglycemia (low sugar). Use up to four times a day as directed 1 Kit 0 01/29/2016 Active PowerInboxTOUCH ULTRA BLUE STRP USE TO CHECK GLUCOSE [...] as of this encounter (statuses as of 09/15/2019) Active Problems Problem Noted Date Type 2 [...] as of this encounter (statuses as of 09/15/2019) Resolved Problems Problem Noted Date Resolved Date [...] as of this encounter (statuses as of 09/15/2019) Immunizations Name Administration Dates Next Due Pneumococcal [...] Progress Notes * Kylie Burroughs DPM - 09/15/2019 11:38 AM EST Podiatry Established Note [facility] Name: Selvin Sebastian : 1945 Date: 09/15/19 1. Onychomycosis TA T1 T2 T3 T4 T5 T6 T7 T8 T9 2. DM type 2 with diabetic peripheral neuropathy (HCC) Q Codes: Q8 - Class B Findings: B2: Advanced trophic changes such as (three of the following): B2a: Hair growth (Decrease or absence) , B2b: Nail Changes (thickening) and B2d: Skin texture (thin, shiny) Q9 - Class C Findings: C3: Edema and C4: Parasthesias (abnormal spontaneous sensations in the feet) Patient was seen and toenails were addressed by certified industrial electrical technician Michael Méndez under my supervision. She performed procedure without issue and patient was amendable to this today. Follow up: 3 months, they were instructed to call sooner with any concerns or new issues documented in this encounter Nursing Notes * Aida Méndez TECH - 09/15/2019 8:27 AM EST The patient presents today for [...] Encounters Date Type Specialty Care Team Description 10/13/2019 Office Visit Family Medicine James Maria DO 132 [facility] [place] [address] [phone] 12/15/2019 Office Visit [place] [address] [place] [address] [phone] Scheduled Orders Name Type Priority Associated Diagnoses Orde r Schedule DEBRIDEMENT OF NAILS 6 OR MORE Procedures Routine Onychomycosis DM type 2 with diabetic peripheral neuropathy (HCC) Ordered: 09/15/2019 Health Maintenance Due Date Last Done Comments [...] on File Type Date Recorded Patient Program Manager Expl anation Advanced Directive service a hi default Advanced Directive Advanced Directive Advanced Directive Advanced Directive Advanced Directive
--- OUTSIDE RECORDS SUMMARY | 2023-07-31 20:37 | External Medical Summary | Summary of Care ---
Author Name Unknown Organization [place] [address] Care Team Providers Care Infectious Disease Technician Name Role Phone Rylan Mariar Sophy Primary Care Provider Reason for Visit * Reason Comments Med Request Encounter Details Date Type Department Care Team Description 10/13/2019 Telephone Pharmacy, [facility] [address] [place] [id number] [facility] 21 [facility] [place] [id number] Med Request Allergies Active Allergy Reactions Severity [...] INSULIN SYRINGE 30G X 5/16" 0.3 ML MISCIndications:Typ e 2 diabetes mellitus with hemoglobin A1c goal of less than 7.0% (HCC) For insulin dosing 4 times daily 1 Box Dosing Unit 3 01/11/2018 Active Additional information Patient not taking. Reported [...] at bedtime. 1 Vial 5 10/13/2019 Active documented as of this encounter (statuses [...] Telephone Encounter - James Maria DO - 10/13/2019 9:23 AM EST New insulin that is more affordable Will try to transition over, but very difficult to communicate due to deafness * Telephone Encounter - Samina Méndez RPh - 10/13/2019 9:12 AM EST New Insulin scripts as requested. Samina Taveras documented in this encounter Plan of Treatment Upcoming Encounters Date Type Specialty Care Team Description 11/21/2019 Office Visit Family Medicine James Maria DO 132 [facility] [place] [address] [phone] 12/15/2019 [place] [address] [place] [id number] Health Maintenance Due Date Last Done Comments [...] Documents on File Type Date Recorded Patient Gift Consultant Expl anation Advanced Directive service a hi default Advanced Directive Advanced Directive Advanced Directive Advanced Directive Advanced Directive
--- OUTSIDE RECORDS SUMMARY | 2023-07-31 20:37 | External Medical Summary | Summary of Care ---
Author Name Unknown Organization [place] [address] Care Team Providers Care Burglar Alarm Superintendent Name Role Phone James Maria Primary Care Provider Encounter Details Date Type Department Care Team Description 10/17/2019 Home Visit Care Coordination [address] [place] [address] Sara Recinos, [facility] [address] [place] [address] [phone] Arrived Allergies Active Allergy Reactions Severity Noted [...] 10/13/2019 8:44 AM Blood Glucose Monitoring Suppl (Coda AutomotiveTOUCH ULTRA SYSTEM) W/DEVICE KIT Use as directed [...] Drinks/Week oz/Week Comments Yes 0.0 As of 12.19.2006 , the last noted alcohol intake was 1 ounces. Sex Assigned at Date Recorded Not on file Job Start Date Occupation Industry Not on file Not on file Not on file Travel History Travel Start Travel End documented as of this encounter Progress Notes * Sara Recinos, [facility] - 10/18/2019 9:09 AM EST LATE ENTRY for ARABELLA HOME VISIT on 10-17-19~ ARABELLA did home visit with patient in his wifes apartment. Their daughter was laying on a bed in the living room. She had some type of surgery and was staying there. Home was a mess with papers and garbage all over the floor. There was enough room to sit at the table, but there were papers, cookiesand a lot of sweets on the table. Patient is very hard of hearing and his had to yell in his ear to hear anything ARABELLA was saying. Med review done, safety check and ARABELLA survey. Patient stated that there is a smoke alarm, steps up to the front door are in good condition. Patient/spouse states that the bedroom has good lighting and pt can go into the bathroom with no issues. Bathroom has towel rack he can hold on if needed, but does have a shower chair. Kitchen has enough food, items at safe reach to the cupboards without using a step stool. Spouse said he eats a lot of junk food and a lot of sugar products. He drink soda a lot and a little water. ARABELLA talked to them about watching his sugar due to his diabetes. Reinforced safety with patient. Patient does drive a car and has one. Patient is independent in his self-care per spouse and the only trouble he has sometimes is walking. He just sometimes has to hold on to the wall. He does wear glasses and can afford them when needed. Patient does not get any government assistance except for food stamps ($15). Patient does use oxygen and a nebulizer. We talked about watching sodium and fluid intake. ARABELLA gaveinformation regarding what foods to avoid that have high sodium, what to avoid to reduce sodium. Patient does wear hard soles shoes in the house. Stated that he does not know his BS as he left his monitor at his home in spring and stated he has no strips. ARABELLA asked how long he will be staying with spouse and they said he will be there while its cold. Sometime maybe after the new year he might go home but not sure when. He stated his strips were free and then there was a charge. He questioned about if his insulin needs to be refrigerated. ARABELLA was not sure as there was not anything marked o the bottle, but said she will check with CMand call them back. Spouse said the pt eats for breakfast cereal in the am and a lot of sweets during the day and very little water and drinks soda. Pt states he weighs #174. States when he walks he does sometimes get SOB. Med review done and is in [place] documents. ARABELLA told the pt about the mail order pharmacy and spouse said they will talk to PCP about that at the next visit. Most of the meds the pt had at the apartment, except for some of the Diabetes medications, which hewas not checking his BS. Will notify CM of this visit. Sent note to CM regarding information on his insulin and needing a monitor and strips. documented in this encounter Plan of Treatment Upcoming Encounters Date Type Specialty Care Team Description 11/21/2019 Office Visit Family Medicine James Maria DO 132 [facility] [place] [address] 12/15/2019 Office Visit Podiatry [facility] [place] [address] [place] [address] [...] on File Type Date Recorded Patient Medical Laboratory Specialist Expl anation Advanced Directive service a hi default Advanced Directive Advanced Directive Advanced Directive Advanced Directive Advanced Directive
--- OUTSIDE RECORDS SUMMARY | 2023-07-31 20:38 | External Medical Summary | Summary of Care ---
Author Name Unknown Organization [facility] [place] [address] Care Team Providers Care Student Success Counselor Name Role Phone James Maria DO Primary Care Provider Unavailable Reason for Visit * Reason Comments Medical Records Request Encounter Details Date Type Department Care Team Description 02/28/2019 Telephone Family Practice [facility] 132 [facility] [place] [address] James Maria DO [address] [facility] [place] [address] [phone] Medical Records Request Allergies Active Allergy Reactions Severity Noted Date Comments Lisinopril Edema face/lips/tongue High 04/05/2018 documented as of this encounter (statuses as of 02/28/2019) Medications Medication Sig Dispensed Refills Start Date End Date Status ciprofloxacin-dex amethasone (CIPRODEX) 0.3-0.1 % otic suspensionIndicat ions:Mixed hearing loss, unilateral,Chroni c mastoiditis,Otiti s media 4 DROPS RIGHT EAR ASNEEDED IF WATER GETS IN EAR 7.5 mL 3 01/29/2016 Active Blood Glucose Monitoring Suppl (ChoicePassTOUCH ULTRA SYSTEM) W/DEVICE KIT Use as directed [...] as of this encounter (statuses as of 02/28/2019) Active Problems Problem Noted Date Type 2 [...] as of this encounter (statuses as of 02/28/2019) Resolved Problems Problem Noted Date Resolved Date [...] as of this encounter (statuses as of 02/28/2019) Immunizations Name Dates Previously Given Next Due Pneumococcal Conjugate Vacc, 13 Valent (Prevnar) 12/24/2015 Pneumococcal Polysaccharide PPV23 (Pneumovax) 07/23/2011 Seasonal Influenza, Quadriva lent, No Preserve, 6 Mons & Above, IM 10/21/2018,09/10/2017 Seasonal Influenza, Quadriva lent, No Preserve, IM 09/16/2016,11/22/2015 Seasonal Influenza, Trivalen t, with Preserve, 3yr & Above, Split 08/15/2014,2013,08/03/2012,,09/10/2010,12/25/2009,2008,11/01/2008 TD - Tetanus/Diptheria (ADULT) 11/09/2003 TDAP (age [...] encounter Miscellaneous Notes * Telephone Encounter - Maury Vogt OSA - 02/28/2019 11:49 AM EDT [facility],Intellectual disabilities/Early Intervention -Drug and Alcohol is requesting medical records for continuation of care. Forwarded to [facility] documented in this encounter Plan of Treatment Upcoming Encounters Date Type Specialty Care Team Description 03/10/2019 Pharmacy Pharmacy [facility]a 132 [facility] [place] [address] 03/24/2019 Office Visit Podiatry Region, [facility] [address] [place] [address] Health Maintenance Due Date Last Done Comments DIABETES-EYE EXAM 06/30/2017 06/30/2016, , 03/02/2011 (Done elsewhere), Additional history exists Yearly B-12 01/11/2019 01/11/2018 DIABETES-FOOT EXAM 06/07/2019 06/07/2018, 0 05/13/2017, 05/09/2016, Additional history exists DIABETES-HGBA1C EVERY 6 MONTHS 06/12/2019 12/13/2018, 01/11/2018, 09/10/2017, Additional history exists DIABETES-URINE MICROALBUMIN EVERY 12 MONTHS 12/13/2019 12/13/2018, 01/11/2018, 12/24/2015, Additional history exists DTaP,Tdap,and Td Vaccines (2 - Td) 10/21/2021 10/21/2011, 11/09/2003 PNEUMOCOCCAL ADULT 65 YRS AND OVER Completed 12/24/2015, 07/23/2011 Influenza Vaccine (FLU shot) Completed , 09/10/2017, 09/16/2016, Additional history exists MENINGOCOCCAL (MENACTRA) Aged Out No longer eligible based on patient's age to complete this topic documented as of this encounter Implants Not on filedocumented as of this encounter Advance Directives Patient has advance care planning documents on file. For more information, please contact: [place] [phone]
--- OUTSIDE RECORDS SUMMARY | 2023-07-31 20:38 | External Medical Summary | Summary of Care ---
Author Name Unknown Organization [place] [address] Care Team Providers Care Shade Hanger Name Role Phone James Maria DO Primary Care Provider Reason for Visit * Reason Comments Forms Request Requesting form be f illed out for diabetic shoes, pt also states he gets the sensation that bugs are crawling on skin for about 6 months or more Medication Administration Flu and/or Pne umo Inj Encounter Details Date Type Department Care Team Description 10/21/2018 Office Visit Family Practice [facility] [address] [facility] [place] [address] James Maria DO [address] [facility] [place] [address] DM type 2 nursing care encounter (HCC)*; Need for prophylactic vaccination and inoculation against influenza; Type 2 diabetes mellitus with hemoglobin A1c goal of less than 8.0% (HCC); Foot deformity, bilateral Allergies Active Allergy Reactions Severity Noted Date Comments Lisinopril Edema face/lips/tongue High 04/05/2018 as of this encounter Medications Medication Sig Dispensed Refills Start Date End Date Status ciprofloxacin-de xamethasone (CIPRODEX) 0.3-0.1 % otic suspensionIndica tions:Mixed hearing loss, unilateral,Chron ic mastoiditis,Otit is media 4 DROPS RIGHT EAR ASNEEDED IF WATER GETS IN EAR 7.5 mL 3 6 Active Blood Glucose Monitoring Suppl ([employer] ULTRA SYSTEM) W/DEVICE KIT Use as directed [...] 7 Active Sildenafil Citrate (VIAGRA) 50 MG TabletIndication s:Impotence of organic origin Take 1 Tab by mouth as needed for Erectile Dysfunction. 5 Tab 6 7 Active Insulin Pen Needle (RELION PEN NEEDLES) 32G X 4 MM Use as directed with flexpen 100 Each 6 7 Active ONETOUCH DELICA LANCETS 33G MISC Use 3 times daily for checking blood sugars 100 Each 3 7 Active Glucose Blood (ONETOUCH VERIO) STRP Use up to 4 times a day E11.9 300 Strip 3 7 Active insulin isophane human (NOVOLIN N RELION) 100 UNIT/ML injection Inject 5 Units under the skin 2 times a day. 1 Vial 5 7 Active insulin glargine (LANTUS SOLOSTAR) 100 UNIT/ML SOPNIndications: Type 2 diabetes mellitus with hemoglobin A1c goal of less than 7.0% (HCC) 35 units at bedtime. 15 Pre-filled Pen Syringe Dosing Unit 3 8 Active insulin glargine (LANTUS) 100 UNIT/ML injectionIndicat ions:Type 2 diabetes mellitus with hemoglobin A1c goal of less than 7.0% (HCC) Inject 35 Units under the skin at bedtime. 35 units 15 Vial 3 8 Active NOVOLOG FLEXPEN 100 UNIT/ML SOPNIndications: Type 2 diabetes mellitus with hemoglobin A1c goal of less than 7.0% (HCC) Inject 5 Units under the skin three times a day with meals. 5 units with Breakfast, lunch, and dinner 5 Pre-filled Pen Syringe Dosing Unit 3 8 Active RELION INSULIN SYRINGE 30G X 5/16" 0.3 ML MISCIndications: Type 2 diabetes mellitus with hemoglobin A1c goal of less than 7.0% (HCC) For insulin dosing 4 times daily 1 Box Dosing Unit 3 8 Active aspirin enteric coated 81 MG TBECIndications: Type 2 diabetes mellitus with diabetic neuropathy, unspecified ([facility]) Take 1 Tab by mouth daily. 100 Tab 3 8 Active MetFORMIN (GLUCOPHAGE) 1000 MG TabletIndication s:Type 2 diabetes mellitus with hemoglobin A1c goal of less than 7.0% ([facility]) TAKE ONE TABLET BY MOUTH TWICE DAILY WITH MORNING AND EVENING MEALS 180 Tab 3 8 Active tamsulosin (FLOMAX) 0.4 MG Capsule Take 1 Cap by mouth daily. 90 Cap 3 8 Active amLODIPine (NORVASC) 5 MG Tablet Take 1 Tab by mouth daily. 90 Tab 3 8 Active atorvaSTATin (LIPITOR) 40 MG Tablet Take 1 Tab by mouth daily. 90 Tab 3 8 Active Blood Glucose Monitoring Suppl ([employer] VERIO) w/Device KITIndications:T ype 2 diabetes mellitus with hemoglobin A1c goal of 7.0%-8.0% ([facility]) Use as directed. Recommend check glucose levels at least 2 times daily-once in AM before breakfast and once 2 hours after evening meal. 1 Kit 0 8 Active Lisinopril-[place] chlorothiazide 10-12.5 MG per tablet 0 8 10/21/20 18 Discontinued as of this encounter Active Problems Problem Noted Date Need for prophylactic vaccination and in oculation [...] unilateral Overview: left Otitis media Chronic mastoiditis as of this encounter Resolved Problems Problem Noted Date Resolved Date [...] 10/21/2018 Dysfunction of eustachian tube 1 12/22/2017 as of this encounter Immunizations Name Dates Previously Given Next Due [...] older)(Adacel) 10/21/2011 Varicella Zoster Vaccine (Adult) 08/03/2012 as of this encounter Social History Tobacco [...] file Travel History Travel Start Travel End as of this encounter Last Filed Vital Signs Vital Sign Reading Time Taken Blood Pressure 122/68 10/21/2018 5:00 PM EST Pulse 72 10/21/2018 5:00 PM EST Temperature - - Respiratory Rate - - Oxygen Saturation - - Inhaled Oxygen Concentration - - Weight 85.3 kg (188 lb) 10/21/2018 5:00 PM EST Height - - Body Mass Index 30.34 10/21/2018 5:00 PM EST in this encounter Patient Instructions * Patient Instructions* Rita Grossman LPN - 10/21/2018 5:02 PM EST Dear Selvin Vann, The care of your Diabetes is very important to us. A yearly diabetic eye exam is important to protect your vision. Please tell your Eye Doctor to fax or mail us the results of your Diabetic Eye Exam at your next visit. Our Address and Fax Number are listed below to help. Thank you for helping us to improve your Diabetes Care Our Office Address and Fax Number: James Maria DO [address] [address] ~~PATIENT INSTRUCTIONS FOR FLU SHOT~~ Possible side [...] OF EYES, FACE OR INSIDE OF NOSE. in this encounter Progress Notes * James Maria DO - 10/21/2018 5:16 PM EST Nursing Notes: Rita Grossman LPN 10/21/18 1703 Signed The patient has been properly identified by confirmation of name and date of . Chief Complaint Patient presents with Forms Request Requesting form be filled out for diabetic shoes, pt also states he gets the sensation that bugs are crawling on skin for about 6 months or more ASSESSMENT/PLAN: 1. DM type 2 nursing care encounter ([facility]) 2. Need for prophylactic vaccination and inoculation against influenza immunized - INFLUENZA VACC, QUAD, PF, 6 MONTHS & UP, 0.5 ML, IM 3. Type 2 diabetes mellitus with hemoglobin A1c goal of less than 8.0% ([facility]) Last known A1C was 8.2, patient now has better access to his medications and will recheck his A1C before our follow up visit so we can titrate the Lantus as able. Patient also has significant foot issues including neuropathy, deformity and will need footwear to accommodate his diabetic care. Will check microalbumen before next visit as well. Did not tolerate ACEI. - ALBUMIN / CREATININE RATIO, URINE; Future 4. Foot deformity, bilateral Bilateral foot and toe deformity causing pressure calluses and potential for ulceration if left unmanaged. Will refer for diabetic footwear. HPI: Selvin Vann is a 73 year old male who presents to be evaluated for his DMII and for certification of need for diabetic foot wear. ROS: CONSTITUTIONAL: no weight loss, no fevers, no sweats HEENT: no change in vision or hearing, no congestion, no sore throat CARDIAC: no chest pain, no palpitations, no orthopnea, no PIERCE, no syncope RESP: no wheezing and no SOB GI: no pain, no NVDC, no melena/hematochezia SKIN: erythematous and calloused skin on feet MSK: no significant joint or muscle pain and no swelling : no dysuria or discharge NEURO: no memory loss, no numbness PSYCH: no SI/HI PHYSICAL EXAMINATION: BP 122/68 | Pulse 72 | Wt 188 lbs (85.276kg) | BMI 30.34 kg/m | BSA 1.99 m GENERAL: alert, healthy, no distress, well [...] bowel sounds and no masses or organomegaly NEURO:slight decrease in bilateral LE/foot sensation consistent with DMII neuropathy MSK:erythematous and calloused skin on feet, over lapping toes, no open wounds or ulcers seen on exam. 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 Need for prophylactic vaccination and inoculation against influenza Z23 DM type 2 nursing care encounter ([facility]) E11.9 Foot deformity, bilateral M21.961, M21.962 Past Medical History: Diagnosis Date Allergic rhinitis 2003 Chronic mastoiditis 2003 Dysfunction of eustachian tube 2004 Mixed hearing loss, unilateral 2003 right Otitis media 2004 Sensorineural hearing loss, unilateral 2003 left Past Surgical History: Procedure Laterality Date COLONOSCOPY 11/05 clear - repeat 10 y COLONOSCOPY FLEXIBLE PROXIMAL DIAGNOSTIC 12/10/2015 Performed by Agustin Saravia MD at [facility] COLONOSCOPY, DIAGNOSTIC (RECTUM) 12/10/2015 diverticulosis, repeat 10 yrs/COLONOSCOPY FLEXIBLE PROXIMAL DIAGNOSTIC performed by Agustin Saravia MD at [facility] FOOT/TOE SURGERY NEC 11/14 L foot deformity MASTOID SURGERY REVISION/APICECTOMY age 18 [facility] SHOULDER ARTHROSCOPY SURGERY 01/07 spur removed Current Outpatient Medications Medication Sig Dispense Refill Blood Glucose Monitoring Suppl ([employer]) w/Device KIT Use as directed. Recommend check glucose levels at least 2 times daily-once in AM before breakfast and once 2 hours after evening meal. 1 Kit 0 amLODIPine (NORVASC) 5 MG Tablet Take 1 Tab by mouth daily. 90 Tab 3 atorvaSTATin (LIPITOR) 40 MG Tablet Take 1 Tab by mouth daily. 90 Tab 3 aspirin enteric coated 81 MG TBEC Take 1 Tab by mouth daily. 100 Tab 3 MetFORMIN (GLUCOPHAGE) 1000 MG Tablet TAKE ONE TABLET BY MOUTH TWICE DAILY WITH MORNING AND EVENING MEALS 180 Tab 3 tamsulosin (FLOMAX) 0.4 MG Capsule Take 1 Cap by mouth daily. 90 Cap 3 insulin glargine (LANTUS SOLOSTAR) 100 UNIT/ML SOPN 35 units at bedtime. 15 Pre-filled Pen Syringe Dosing Unit 3 insulin glargine (LANTUS) 100 UNIT/ML injection Inject 35 Units under the skin at bedtime. 35 units 15 Vial 3 NOVOLOG FLEXPEN 100 UNIT/ML SOPN Inject 5 Units under the skin three times a day with meals. 5 units with Breakfast, lunch, and dinner 5 Pre-filled Pen Syringe Dosing Unit 3 RELION INSULIN SYRINGE 30G X 5/16" 0.3 ML MISC For insulin dosing 4 times daily 1 Box Dosing Unit 3 insulin isophane human (NOVOLIN N RELION) 100 UNIT/ML injection Inject 5 Units under the skin 2times a day. 1 Vial 5 Glucose Blood (ONETOUCH VERIO) STRP Use up to 4 times a day E11.9 300 Strip 3 Insulin Pen Needle (RELION PEN NEEDLES) 32G X 4 MM Use as directed with flexpen 100 Each 6 ONETOUCH DELICA LANCETS 33G MISC Use 3 times daily for checking blood sugars 100 Each 3 ONETOUCH DELICA LANCETS 33G MISC USE [...] WATER GETS IN EAR 7.5 mL 3 Review of patient's allergies indicates: Allergen Reactions Lisinopril Edema face/lips/tongue James Maria DO [facility] [address] [place] [id number] (This note was completed using the dictation program Fluency Direct. As such, there may be misspellings, word substitutions, or other variations that should not change the essence of the clinical content of this encounter note.If there is need for further clarification, please direct questions to the provider listed above.) * Rita Grossman LPN - 10/21/2018 5:02 PM EST The importance of having a yearly diabetic eye exam has been discussed with patient. Order and Referral placed along with patient instructions. Provider made aware. Rita Grossman LPN PRE - ADMINISTRATION DOCUMENTATION Are you allergic to latex? No Are you experiencing any cold symptoms or fever? No Have you had Guillain-[place] Syndrome (an illness that causes paralysis)? No Have you had the flu shot in the past? YES Have you ever had a reaction to the flu shot? No Rita Grossman LPN, 10/21/2018 5:02 PM Immunization Administration Documentation Time Out Procedure Performed: Yes Patient Identified (Ask Name/Date of ): Yes Does the patient have a fever greater than 101 degrees today? No Patient allergic to latex? No VFC Stock: No Immunization(s) verified: Yes, Immunization Name: Flu, VIS Sheet(s) given: Yes Verified Side and Site: Yes Verified Shot(s) with Parent(s)/Patient: Yes Injection tolerated well by patient. in this encounter Nursing Notes * Rita Grossman LPN - 10/21/2018 5:00 PM EST The patient has been properly identified by confirmation of name and date of . Chief Complaint Patient presents with Forms Request Requesting form be filled out for diabetic shoes, pt also states he gets the sensation that bugs are crawling on skin for about 6 months or more in this encounter Plan of Treatment Upcoming Encounters Date Type Specialty Care Team Description 12/13/2018 Office Visit Family Medicine James Maria DO [address] [place] [address] [phone] 12/30/2018 Office Visit Podiatry [facility] [place] [address] [place] [address] [phone] Scheduled Tests Name Priority Associated Diagnoses Order S chedule ALBUMIN / CREATININE RATIO, URINE Routine Type 2 diabetes mellitus with hemoglobin A1c goal of less than 8.0% ([facility]LY [facility]) Expected: 10/21/2018 (Approximate), Expires: 10/21/2019 Health Maintenance Due Date Last Done Comments DIABETES-EYE EXAM 06/30/2017 06/30/2016, , 03/02/2011 (Done elsewhere), Additional history exists Influenza Vaccine (FLU shot) (#1) 2018 09/10/2017, 09/16/2016, 11/22/2015, Additional history exists DIABETES-HGBA1C EVERY 6 MONTHS 07/14/2018 0 01/11/2018, 09/10/2017, 05/13/2017, Additional history exists DIABETES-URINE MICROALBUMIN EVERY 12 MONTHS 01/11/2019 01/11/2018, 12/24/2015, 02/02/2014, Additional history exists Yearly B-12 01/11/2019 01/11/2018 DIABETES-FOOT EXAM 06/07/2019 06/07/2018, 0 05/13/2017, 05/09/2016, Additional history exists DTaP,Tdap,and Td Vaccines (2 - Td) 10/21/20212010, 11/09/2003 PNEUMOCOCCAL ADULT 65 YRS AND OVER Completed 2015, 07/23/2011 as of this encounter Implants Not on fileas of this encounter Visit Diagnoses Diagnosis DM type 2 nursing care encounter (HCC)- Primary Type II or unspecified type diabetes mellitus without mention of complication, not stated as uncontrolled Need for prophylactic vaccination and inoculation against influenza Type 2 diabetes mellitus with hemoglobin A1c goal of less than 8.0% (HCC) Foot deformity, bilateral Unspecified deformity of ankle and foot, acquired in this encounter Advance Directives Patient has advance care planning documents on file. For more information, please contact: [place] [id number]
--- OUTSIDE RECORDS SUMMARY | 2023-07-31 20:38 | External Medical Summary | Summary of Care ---
Author Name Unknown Organization [place] [address] Care Team Providers Care Lead Printer Name Role Phone James Maria DO Primary Care Provider Unavailable Reason for Visit * Reason Comments Follow Up 6 month return, woul d like to discuss feet Encounter Details Date Type Department Care Team Description 12/13/2018 Office Visit Family Practice [facility] [address] [facility] [place] [address] James [facility] [place] [address] [phone] Type 2 diabetes mellitus with polyneuropathy ([facility])*; Dyslipidemia, goal LDL below 100; Type 2 diabetes mellitus with hemoglobin A1c goal of less than 8.0% ([facility]); HTN, goal below 140/90; DM type 2 nursing care encounter ([facility]); Foot deformity, bilateral; Sensorineural hearing loss, unilateral Allergies Active Allergy Reactions Severity Noted Date Comments Lisinopril Edema face/lips/tongue High 04/05/2018 documented as of this encounter (statuses as of 12/13/2018) Medications Medication Sig Dispensed Refills Start Date End Date Status ciprofloxacin-de xamethasone (CIPRODEX) 0.3-0.1 % otic suspensionIndica tions:Mixed hearing loss, unilateral,Chron ic mastoiditis,Otit is media 4 DROPS RIGHT EAR ASNEEDED IF WATER GETS IN EAR 7.5 mL 3 6 Active Blood Glucose Monitoring Suppl ([employer] ULTRA SYSTEM) W/DEVICE KIT Use as directed [...] Pen Syringe Dosing Unit 3 8 Active NOVOLOG FLEXPEN 100 UNIT/ML [...] 3 8 Active Blood Glucose Monitoring Suppl ([employer] VERIO) w/Device KITIndications:T ype 2 diabetes mellitus with hemoglobin A1c goal of 7.0%-8.0% (HCC) Use as directed. Recommend check glucose levels at least 2 times daily-once in AM before breakfast and once 2 hours after evening meal. 1 Kit 0 8 Active insulin glargine (LANTUS) 100 UNIT/ML injectionIndicat ions:Type 2 diabetes mellitus with hemoglobin A1c goal of less than 7.0% (HCC) Inject 35 Units under the skin at bedtime. 35 units 15 Vial 3 8 12/13/19 19 Discontinued documented as of this encounter (statuses as of 12/13/2018) Active Problems Problem Noted Date Type 2 [...] as of this encounter (statuses as of 12/13/2018) Resolved Problems Problem Noted Date Resolved Date [...] as of this encounter (statuses as of 12/13/2018) Immunizations Name Dates Previously Given Next Due [...] Vital Sign Reading Time Taken Blood Pressure 124/68 12/13/2018 2:25 PM EST Pulse 60 12/13/2018 2:25 PM EST Temperature 36.4 C (97.5 F) 12/13/2018 2 :25 PM EST Respiratory Rate 14 12/13/2018 2:25 PM EST Oxygen Saturation - - Inhaled Oxygen Concentration - - Weight 84.8 kg (187 lb) 12/13/2018 2:25 PM EST Height - - Body Mass Index 30.18 12/13/2018 2:25 PM EST documented in this encounter Progress Notes * James Maria, DO - 12/13/2018 2:34 PM EST Nursing Notes: Rita Grossman LPN 12/13/18 1427 Signed The patient has been properly identified by confirmation of name and date of . Chief Complaint Patient presents with Follow Up 6 month return, would like to discuss feet ASSESSMENT/PLAN: 1. Type 2 diabetes mellitus with polyneuropathy (HCC) Ongoing neuropathy with lower extremity lack of sensation in feet Has diabetic footwear now, but using only when the weather is good to preserve the shoes. Encouraged him to wear the diabetic shoes more often. 2. Dyslipidemia, goal LDL below 100 Ongoing therapy with atorvastatin due to ASCVD of 40% 3. Type 2 diabetes mellitus with hemoglobin A1c goal of less than 8.0% ([facility]) Getting A1C today and will titrate up in Lantus dosing if needed Had low B12, but patient reluctant to take at this time May decrease metformin dose in time as renal fnx declines 4. HTN, goal below 140/90 Stable and well controlled 5. DM type 2 nursing care encounter (HCC) updated 6. Foot deformity, bilateral As noted above 7. Sensorineural hearing loss, unilateral Stable, with R sided hearing aid which helps HPI: Selvin Vann is a 73 year old male who presents to F/u on DMII ROS: CONSTITUTIONAL: no weight loss, no fevers, [...] numbness PSYCH: no SI/HI PHYSICAL EXAMINATION: BP 124/68 | Pulse 60 | Temp (Src) 97.5 (Tympanic) | Resp 14 | Wt 187 lbs (84.823kg) | BMI 30.18 kg/m | BSA 1.99 m GENERAL: alert, [...] without nodularity HEART: regular rate & rhythm, aortic stenosis (moderate) and no gallops LUNGS: clear to auscultation bilaterally. No wheezing/rales/rhonchi SKIN: skin color, texture, turgor are normal, no rashes or significant lesions EXTREMITIES: no joint deformities, effusion, or inflammation, no edema, no clubbing, no cyanosis, Full ROM, Pulses Intact, Strength equal bilaterally NEURO: alert & oriented x 3 with fluent speech, + lower extremity motor/sensory deficits, gait normal, reflexes normal and symmetric MSK:normal ROM and strength Patient Active Problem List Diagnosis Code ADVANCE DIRECTIVE INFORMATION Mixed hearing loss, unilateral H90.8 Sensorineural hearing loss, unilateral H90.5 Otitis media H66.90 Chronic mastoiditis H70.10 Type 2 diabetes mellitus with hemoglobin A1c goal of less than 8.0% ([facility]) E11.9 DYSLIPIDEMIA, GOAL LDL BELOW 100 E78.5 OBESITY, BMI 30-34 (SEE ACTUAL BMI) E66.9 HTN, goal below 140/90 I10 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 Need for prophylactic vaccination and inoculation against influenza Z23 DM type 2 nursing care encounter ([facility]) E11.9 Foot deformity, bilateral M21.961, M21.962 Type 2 diabetes mellitus with polyneuropathy (HCC) E11.42 Past Medical History: Diagnosis Date Allergic rhinitis 2003 Chronic mastoiditis 2003 Dysfunction of eustachian tube 2003 Mixed hearing loss, unilateral 2003 right Otitis media 2003 Sensorineural hearing loss, unilateral 2003 left Past Surgical History: Procedure Laterality Date COLONOSCOPY 11/05 clear - repeat 10 y COLONOSCOPY FLEXIBLE PROXIMAL DIAGNOSTIC 12/10/2015 Performed by Agustin Saravia MD at ENDOSCOPY [facility] FOOT/TOE SURGERY NEC 11/14 L foot deformity MASTOID SURGERY REVISION/APICECTOMY age 18 [facility] SHOULDER ARTHROSCOPY SURGERY 01/07 spur removed Current Outpatient Medications Medication Sig Dispense Refill Blood Glucose Monitoring Suppl (ReviverMxIO) w/Device KIT Use as directed. Recommend check [...] 15 Pre-filled Pen Syringe Dosing Unit 3 NOVOLOG FLEXPEN 100 UNIT/ML SOPN Inject 5 Units under the skin three times a day with meals. 5 units with Breakfast, lunch, and dinner 5 Pre-filled Pen Syringe Dosing Unit 3 insulin isophane human (NOVOLIN [...] 100 Strip 0 Blood Glucose Monitoring Suppl ([employer] ULTRA SYSTEM) W/DEVICE KIT Use as directed 4 times a day as needed for Hyperglycemia (high sugar) or Hypoglycemia (low sugar). Use up to four times a day as directed 1 Kit 0 ciprofloxacin-dexamethasone (CIPRODEX) 0.3-0.1 % otic suspension 4 DROPS RIGHT EAR ASNEEDED IF WATER GETS IN EAR 7.5 mL 3 RELION INSULIN SYRINGE 30G X 5/16" 0.3 ML MISC For insulin dosing 4 times daily 1 Box Dosing Unit 3 ONETOUCH DELICA LANCETS 33G MISC Use 3 times daily for checking blood sugars 100 Each 3 Sildenafil Citrate (VIAGRA) 50 MG Tablet Take 1 Tab by mouth as needed for Erectile Dysfunction. 5 Tab 6 Review of patient's allergies indicates: Allergen Reactions Lisinopril Edema face/lips/tongue James Maria DO [facility] [address] [facility] [place] [address] (This note was completed using the dictation program Fluency Direct. As such, there may be misspellings, word substitutions, or other variations that should not change the essence of the clinical content of this encounter note.If there is need for further clarification, please direct questions to the provider listed above.) documented in this encounter Nursing Notes * Rita Grossman LPN - 12/13/2018 2:25 PM EST The patient has been properly identified by confirmation of name and date of . Chief Complaint Patient presents with Follow Up 6 month return, would like to discuss feet documented in this encounter Miscellaneous Notes * Addendum Note - Alexa Dickerson TECH - 12/13/2018 2:58 PM EST Addended by: ALEXA DICKERSON on: 12/13/2018 02:58 PM Modules accepted: Orders documented in this encounter Plan of Treatment Upcoming Encounters Date Type Specialty Care Team Description 12/30/2018 Office Visit Podiatry Region, [place] [address] [place] [address] [phone] Pending Results Name Priority Associated Diagnoses Date/Ti me ALBUMIN / CREATININE RATIO, URINE Routine Type 2 diabetes mellitus with hemoglobin A1c goal of less than 8.0% ([facility]) 12/13/2018 3:05 PM EST BASIC METAB PANEL, BMP Routine DM type 2 nursing care encounter ([facility]) 12/13/2018 3:03 PM EST HEMOGLOBIN A1C Routine DM type 2 nursing care encounter ([facility]) 12/13/2018 3:03 PM EST Health Maintenance Due Date Last Done Comments DIABETES-EYE EXAM 06/30/2017 06/30/2016, , 03/02/2011 (Done elsewhere), Additional history exists DIABETES-HGBA1C EVERY 6 MONTHS 07/14/2018 01/11/2018, 09/10/2017, 05/13/2017, Additional history exists DIABETES-URINE [...] with neurological manifestations, not stated as uncontrolled Dyslipidemia, goal LDL below 100 Other and unspecified hyperlipidemia Type 2 diabetes mellitus with hemoglobin A1c goal of less than 8.0% ([facility]) HTN, goal below 140/90 Unspecified essential hypertension DM type 2 nursing care encounter ([facility]) Type II or unspecified type diabetes mellitus without mention of complication, not stated as uncontrolled Foot deformity, bilateral Unspecified deformity of ankle and foot, acquired Sensorineural hearing loss, unilateral documented in this encounter Advance Directives Patient has advance care planning documents on file. For more information, please contact: [place] [phone]
--- OUTSIDE RECORDS SUMMARY | 2023-07-31 20:38 | External Medical Summary | Summary of Care ---
Author Name Unknown Organization [facility] Address [facility] [place] [address] Care Team Providers Care Auto Research Engineer Name Role Phone James Maria DO Primary Care Provider Unavailable Reason for Visit * Reason Comments Previsit Planning Encounter Details Date Type Department Care Team Description 07/05/[address] [facility] 132 [facility] [place] [address] James Maria DO 132 [facility] [place] [address] [phone] Previsit Planning Allergies Active Allergy Reactions Severity Noted Date Comments Lisinopril Edema face/lips/tongue High 04/05/2018 documented as of this encounter (statuses as of 07/05/2019) Medications Medication Sig Dispensed Refills Start Date End Date Status ciprofloxacin-dex amethasone (CIPRODEX) 0.3-0.1 % otic suspensionIndicat ions:Mixed hearing loss, unilateral,Chroni c mastoiditis,Otiti s media 4 DROPS RIGHT EAR ASNEEDED IF WATER GETS IN EAR 7.5 mL 3 01/29/2016 Active Blood Glucose Monitoring Suppl (Game NationTOUCH ULTRA SYSTEM) W/DEVICE KIT Use as directed [...] as of this encounter (statuses as of 07/05/2019) Active Problems Problem Noted Date Type 2 [...] as of this encounter (statuses as of 07/05/2019) Resolved Problems Problem Noted Date Resolved Date [...] as of this encounter (statuses as of 07/05/2019) Immunizations Name Administration Dates Next Due Pneumococcal [...] Miscellaneous Notes * Telephone Encounter - Jeannie bAreu LPN - 07/05/2019 2:28 PM EDT Patient contacted for Care Gaps Comprehensive Care Outreach. Last Office Visit: 12/13/2018 Next Office Visit: No Future Appointments Health Maintenance Due Topic Date Due DIABETES-EYE EXAM 06/30/2017 Yearly B-12 01/11/2019 DIABETES-FOOT EXAM 06/07/2019 *DEPRESSION SCREENING,ANNUAL FOR PTS 12 AND OVER 06/09/2019 DIABETES-HGBA1C EVERY 6 MONTHS 06/12/2019 Influenza Vaccine (FLU shot) (1) 07/03/2019 Outreach action taken: Contacted: Left message. documented in this encounter Plan of Treatment Health Maintenance Due Date Last Done Comments [...] 65 YRS AND OVER Completed 12/24/2015, 07/23/2011 MENINGOCOCCAL (MENACTRA) Aged Out No longer eligible based on patient's age to complete this topic documented as of this encounter Implants Not on filedocumented as of this encounter Advance Directives Documents on File Type Date Recorded Patient Esl Instructor Expl anation Advanced Directive service a hi default Advanced Directive Advanced Directive Advanced Directive Advanced Directive Advanced Directive
--- OUTSIDE RECORDS SUMMARY | 2023-07-31 20:38 | External Medical Summary ---
Author Name Unknown Address [facility] [address] [place] [id number] Phone Organization [id number] [address] [place] [id number] Laboratory Report Ordering Provider Test Date Status MEJIA,ALEXANDER 12/13/2018 15:03:00 Final Observation Date Value Abnormality Reference Status HbA1C 12/14/2018 06:21 14.3 Above high normal 4.0-5 .6 Final Performing Location [place] [address] [address] [facility] [address]
--- OUTSIDE RECORDS SUMMARY | 2023-07-31 20:38 | External Medical Summary | Summary of Care ---
Author Name Unknown Organization [place] [address] Care Team Providers Care Furniture Refinisher Name Role Phone James Maria DO Primary Care Provider Unavailable Reason for Visit * Reason Comments Referral Encounter Details Date Type Department Care Team Description 12/15/2018 Pharmacy Pharmacy, [facility] [address] [facility] [address] Type 2 diabetes mellitus with polyneuropathy (HCC)* Allergies Active Allergy Reactions Severity Noted Date Comments Lisinopril Edema face/lips/tongue High 04/05/2018 documented as of this encounter (statuses as of 12/15/2018) Medications Medication Sig Dispensed Refills Start Date End Date Status ciprofloxacin-dex amethasone (CIPRODEX) 0.3-0.1 % otic suspensionIndicat ions:Mixed hearing loss, unilateral,Chroni c mastoiditis,Otiti s media 4 DROPS RIGHT EAR ASNEEDED IF WATER GETS IN EAR 7.5 mL 3 01/29/2016 Active Blood Glucose Monitoring Suppl (Edgewood AveTOUCH ULTRA SYSTEM) W/DEVICE KIT Use as directed [...] a day. 1 Vial 5 10/09/2017 Active insulin glargine (LANTUS SOLOSTAR) 100 UNIT/ML SOPNIndications:T ype 2 diabetes mellitus with hemoglobin A1c goal of less than 7.0% (HCC) 35 units at bedtime. 15 Pre-filled Pen Syringe Dosing Unit 3 01/11/2018 Active NOVOLOG FLEXPEN 100 UNIT/ML SOPNIndications:T ype 2 diabetes mellitus with hemoglobin A1c goal of less than 7.0% (HCC) Inject 5 Units under the skin three times a day with meals. 5 units with Breakfast, lunch, and dinner 5 Pre-filled Pen Syringe Dosing Unit 3 01/11/2018 Active RELION INSULIN SYRINGE 30G X 5/16" 0.3 ML MISCIndications:T ype 2 diabetes mellitus with hemoglobin A1c goal of less than 7.0% (HCC) For insulin dosing 4 times daily 1 Box Dosing Unit 3 01/11/2018 Active aspirin enteric coated 81 MG TBECIndications:T ype 2 diabetes mellitus with diabetic neuropathy, unspecified (HCC) Take 1 Tab by mouth daily. 100 Tab 3 02/10/2018 Active MetFORMIN (GLUCOPHAGE) 1000 MG TabletIndications :Type 2 diabetes mellitus with hemoglobin A1c goal of less than 7.0% (HCC) TAKE ONE TABLET BY MOUTH TWICE DAILY WITH MORNING AND EVENING MEALS 180 Tab 3 02/10/2018 Active tamsulosin (FLOMAX) 0.4 MG Capsule Take 1 Cap by mouth daily. 90 Cap 3 02/10/2018 Active amLODIPine (NORVASC) 5 MG Tablet Take 1 Tab by mouth daily. 90 Tab 3 04/05/2018 Active atorvaSTATin (LIPITOR) 40 MG Tablet Take 1 Tab by mouth daily. 90 Tab 3 04/05/2018 Active Blood Glucose Monitoring Suppl ([employer] VERIO) w/Device KITIndications:Ty pe 2 diabetes mellitus with hemoglobin A1c goal of 7.0%-8.0% ([facility]) Use as directed. Recommend check glucose levels at least 2 times daily-once in AM before breakfast and once 2 hours after evening meal. 1 Kit 0 05/12/2018 Active documented as of this encounter (statuses as of 12/15/2018) Active Problems Problem Noted Date Type 2 [...] as of this encounter (statuses as of 12/15/2018) Resolved Problems Problem Noted Date Resolved Date [...] as of this encounter (statuses as of 12/15/2018) Immunizations Name Dates Previously Given Next Due [...] of this encounter Progress Notes * Samina Méndez RPh - 12/15/2018 4:23 PM EST I agree with documented plan of care. Samina Méndez, Pharm D Clinical Pharmacist 12/15/2018, 4:23 PM * Autumn Ochoa OSA - 12/15/2018 4:18 PM EST Pharmacist Disease Management Service 12/15/2018 Name: Selvin Bereket Jaz [address] [place] [phone] phone: There are no phone numbers on file. Called 's cell to set up appointment for diabetes education per physician referral. Att 1 Spoke with to explain [facility] clinic and offer appointment for patient. She is going to discuss with him and I will call back in about a week to offer to get him scheduled. Current diabetic Medications: Hemoglobin AIC Results: HEMOGLOBIN, A1C(%) Stephie Dt/Tm Resulted Value Status 12/13/18 3:03P 12/14/18 14.3* FINAL 01/11/18 11:20A 01/11/18 8.2* FINAL 09/10/17 11:28A 09/10/17 9.4* FINAL goal A1c per refferal: Glucose Results: GLUCOSE(mg/dL) Stephie Dt/Tm Resulted Value Status 12/13/18 3:03P 12/13/18 404* FINAL 01/11/18 11:20A 01/11/18 105 FINAL 09/10/17 11:28A 09/10/17 229* FINAL MICHEL Garsia Medication Therapy Management [facility] 12/15/2018, 4:18 PM documented in this encounter Plan of Treatment Upcoming Encounters Date Type Specialty Care Team Description 12/15/2018 [facility] [address] [place] [address] Type 2 diabetes mellitus with polyneuropathy (HCC)* 12/23/[address] [facility] [address] [place] [address] 12/30/2018 Office Visit Podiatry Region, [place] [address] [place] [address] [...] uncontrolled documented in this encounter Advance Directives Patient has advance care planning documents on file. For more information, please contact: [place] [phone]
--- OUTSIDE RECORDS SUMMARY | 2023-07-31 20:38 | External Medical Summary | Summary of Care ---
Author Name Unknown Organization [place] [address] Care Team Providers Care Theatre Arts Professor Name Role Phone James Maria DO Primary Care Provider Unavailable Reason for Visit * Reason Comments Appointment Encounter Details Date Type Department Care Team Description 02/10/2019 Pharm[facility] [address] [facility] [address] [facility] [address] Type 2 diabetes mellitus with polyneuropathy (HCC)* Allergies Active Allergy Reactions Severity Noted Date Comments Lisinopril Edema face/lips/tongue High 04/05/2018 documented as of this encounter (statuses as of 02/10/2019) Medications Medication Sig Dispensed Refills Start Date End Date Status ciprofloxacin-dex amethasone (CIPRODEX) 0.3-0.1 % otic suspensionIndicat ions:Mixed hearing loss, unilateral,Chroni c mastoiditis,Otiti s media 4 DROPS RIGHT EAR ASNEEDED IF WATER GETS IN EAR 7.5 mL 3 01/29/2016 Active Blood Glucose Monitoring Suppl (MOWGLITOUCH ULTRA SYSTEM) W/DEVICE KIT Use as directed [...] as of this encounter (statuses as of 02/10/2019) Active Problems Problem Noted Date Type 2 [...] as of this encounter (statuses as of 02/10/2019) Resolved Problems Problem Noted Date Resolved Date [...] as of this encounter (statuses as of 02/10/2019) Immunizations Name Dates Previously Given Next Due [...] Progress Notes * Samina Méndez RPh - 02/10/2019 9:09 AM EDT I agree with documented plan of care. Samina Méndez, Pharm D Clinical Pharmacist 02/10/2019, 9:09 AM * Joanne Parrish OSA - 02/10/2019 9:08 AM EDT Pharmacist Disease Management Service 02/10/2019 Name: Selvin Vann [address] [facility] [phone] Patient Phone Numbers Left message for patient to schedule new DM appointment Will follow up in 3-4 weeks, if no response will discharge from [facility] Current diabetic Medications: Hemoglobin AIC Results: HEMOGLOBIN, A1C(%) Stephie Dt/Tm Resulted Value Status 12/13/18 3:03P 12/14/18 14.3* FINAL 01/11/18 11:20A 01/11/18 8.2* FINAL 09/10/17 11:28A 09/10/17 9.4* FINAL goal A1c per refferal: Glucose Results: GLUCOSE(mg/dL) Stephie Dt/Tm Resulted Value Status 12/13/18 3:03P 12/13/18 404* FINAL 01/11/18 11:20A 01/11/18 105 FINAL 09/10/17 11:28A 09/10/17 229* FINAL MICHEL Miller Clinical Pharmacist Medication Therapy Management [facility] 02/10/2019, 9:08 AM documented in this encounter Plan of Treatment Upcoming Encounters Date Type Specialty Care Team Description 02/10/2019 Pharmacy Pharmacy [facility] [address] [place] [address] Type 2 diabetes mellitus with polyneuropathy (HCC)* 03/10/2019 Pharmacy Pharmacy [facility] [address] [place] [address] [facility] [address] [place] [...] For more information, please contact: [place] [phone]
--- OUTSIDE RECORDS SUMMARY | 2023-07-31 20:38 | External Medical Summary | Summary of Care ---
Author Name Unknown Organization [place] [address] Care Team Providers Care Surgical Tech Name Role Phone Mejia Maria DO Primary Care Provider Unavailable Reason for Visit * Reason Comments eRx-Medication Refill Encounter Details Date Type Department Care Team Description 01/26/2019 Refill Family Practice [facility] [address] [place] [address] Lamberto Razo MD [address] [place] [address] [phone] Type 2 diabetes mellitus with hemoglobin A1c goal of less than 7.0% ([facility]) Allergies Active Allergy Reactions Severity Noted Date Comments Lisinopril Edema face/lips/tongue High 04/05/2018 documented as of this encounter (statuses as of 01/26/2019) Medications Medication Sig Dispensed Refills Start Date [...] as of this encounter (statuses as of 01/26/2019) Active Problems Problem Noted Date Type 2 [...] as of this encounter (statuses as of 01/26/2019) Resolved Problems Problem Noted Date Resolved Date [...] as of this encounter (statuses as of 01/26/2019) Immunizations Name Dates Previously Given Next Due [...] Telephone Encounter - Mejia Maria DO - 01/26/2019 4:55 PM EDT Signed Prescriptions: Disp Refills NOVOLOG FLEXPEN 100 UNIT/ML SOPN 15 mL 3 Sig: INJECT 5 UNITS SUBCUTANEOUSLY THREE TIMES DAILY WITH MEALS Authorizing Provider: MEJIA MARIA Refused Prescriptions: Disp Refills insulin glargine (LANTUS SOLOSTAR) 100 UNI* 5 Sig: INJECT 35 UNITS SUBCUTANEOUSLY AT BEDTIME Refused By: CONNER ALONSO Reason for Refusal: Duplicate Request * Telephone Encounter - Conner Alonso LPN - 01/26/2019 1:40 PM EDT Pending Prescriptions: Disp Refills NOVOLOG FLEXPEN 100 UNIT/ML SOPN [Pharmac*15 mL 3 Sig: INJECT 5 UNITS SUBCUTANEOUSLY THREE TIMES DAILY WITH MEALS Refused Prescriptions: Disp Refills insulin glargine (LANTUS SOLOSTAR) 100 UNI* 5 Sig: INJECT 35 UNITS SUBCUTANEOUSLY AT BEDTIME Refused By: CONNER ALONSO Reason for Refusal: Dupl icate Request * Telephone Encounter - Conner Alonso LPN - 01/26/2019 1:39 PM EDT Pending Prescriptions: Disp Refills NOVOLOG FLEXPEN 100 UNIT/ML SOPN [Pharmac*15 mL 3 Sig: INJECT 5 UNITS SUBCUTANEOUSLY THREE TIMES DAILY WITH MEALS Refused Prescriptions: Disp Refills insulin glargine (LANTUS SOLOSTAR) 100 UNI* 5 Sig: INJECT 35 UNITS SUBCUTANEOUSLY AT BEDTIME Refused By: CONNER ALONSO Reason for Refusal: Duplicate Request Last Office Visit: 12/13/2018 Next Office Visit: No Future Appointments Last date the medication was ordered: 10/09/17 Patient Active Problem List Diagnosis Code ADVANCE [...] ([facility]) E11.42 Labs: CREATININE, RD URINE(mg/dL) Stephie Dt/Tm Resulted Value Status 12/13/18 3:05P 12/13/18 35 FINAL POTASSIUM(mmol/L) Stephie Dt/Tm Resulted Value Status 12/13/18 3:03P 12/13/18 4.2 FINAL TSH(uIU/mL) Stephie Dt/Tm Resulted Value Status 11/01/08 10:02A 11/01/08 2.18 FINAL LDL (DIRECT MEASURE)(mg/dL) Stephie Dt/Tm Resulted Value Status 01/11/18 11:20A 01/11/18 53 FINAL 09/10/17 11:28A 09/10/17 54 FINAL ALT(U/L) Stephie Dt/Tm Resulted Value Status 01/11/18 11:20A 01/11/18 8* FINAL Hemoglobin AIC Results: HEMOGLOBIN, A1C(%) Stephie Dt/Tm Resulted Value Status 12/13/18 3:03P 12/14/18 14.3* FINAL 01/11/18 11:20A 01/11/18 8.2* FINAL 09/10/17 11:28A 09/10/17 9.4* FINAL documented in this encounter Plan of Treatment Upcoming Encounters Date Type Specialty Care Team Description 02/10/2019 Pharmacy Pharmacy [facility] [address] [place] [address] 03/24/2019 Office Visit Podiatry [place] [address] [place] [address] [...] (HCC) documented in this encounter Advance Directives Patient has advance care planning documents on file. For more information, please contact: [place] [phone]
--- OUTSIDE RECORDS SUMMARY | 2023-07-31 20:38 | External Medical Summary | Summary of Care ---
Author Name Unknown Organization [place] [address] Care Team Providers Care Lockstitch Pocket Setter Name Role Phone James Maria DO Primary Care Provider Unavailable Reason for Visit * Reason Comments Follow Up nail care Encounter Details Date Type Department Care Team Description 12/30/2018 Office Visit Podiatry [facility] 132 [facility] [place] [address] [facility] [address] [place] [id number] Onychomycosis*; DM type 2 with diabetic peripheral neuropathy (HCC) Allergies Active Allergy Reactions Severity Noted Date Comments Lisinopril Edema face/lips/tongue High 04/05/2018 documented as of this encounter (statuses as of 12/30/2018) Medications Medication Sig Dispensed Refills Start Date [...] 3 04/05/2018 Active Blood Glucose Monitoring Suppl ([email or web address] VERIO) w/Device KITIndications:Ty pe 2 diabetes mellitus with hemoglobin A1c goal of 7.0%-8.0% ([facility]) Use as directed. Recommend check glucose levels at least 2 times daily-once in AM before breakfast and once 2 hours after evening meal. 1 Kit 0 05/12/2018 Active documented as of this encounter (statuses as of 12/30/2018) Active Problems Problem Noted Date Type 2 [...] as of this encounter (statuses as of 12/30/2018) Resolved Problems Problem Noted Date Resolved Date [...] Lipid Taxonomy. Obesity, BMI not known 04/04/2009 03/25/201 0 Overview: Per Obesity Taxonomy AC SEROUS OTITIS MEDIA 07/15/2006 8 HTN, goal below 140/90 12/26/2004 0 Overview: Per HTN Taxonomy. Hearing loss 11/09/2003 05/13/2017 Allergic rhinitis 10/21/2018 Dysfunction of eustachian tube 1 12/22/2017 documented as of this encounter (statuses as of 12/30/2018) Immunizations Name Dates Previously Given Next Due [...] Progress Notes * Kylie Burroughs DPM - 12/30/2018 10:18 AM EST Podiatry Established Note [facility] Name: Selvin Vann : 1945 Date: 12/30/18 1. Onychomycosis TA T1 T2 T3 T4 [...] seen and toenails were addressed by certified hydro technician Michael Méndez under my supervision. She performed procedure without issue and patient was amendable to this today. Follow up: 3 months, they were instructed to call sooner with any concerns or new issues documented in this encounter Nursing Notes * Aida Méndez TECH - 12/30/2018 9:23 AM EST The patient presents today for [...] Encounters Date Type Specialty Care Team Description 01/13/2019 Pharmacy Pharmacy [facility]aspreet Aknan [address] [place] [address] Health Maintenance Due Date Last Done Comments [...] For more information, please contact: [place] [phone]
--- OUTSIDE RECORDS SUMMARY | 2023-07-31 20:38 | External Medical Summary | Summary of Care ---
Author Name Unknown Organization [place] [address] Care Team Providers Care Fisheries Inspector Name Role Phone James Maria DO Primary Care Provider Unavailable Reason for Visit * Reason Comments Appointment Encounter Details Date Type Department Care Team Description 12/23/2018 Pharm[address] Pharm[address], [facility] [address] [facility] [address] Type 2 diabetes mellitus with polyneuropathy (HCC)* Allergies Active Allergy Reactions Severity Noted Date Comments Lisinopril Edema face/lips/tongue High 04/05/2018 documented as of this encounter (statuses as of 12/23/2018) Medications Medication Sig Dispensed Refills Start Date End Date Status ciprofloxacin-dex amethasone (CIPRODEX) 0.3-0.1 % otic suspensionIndicat ions:Mixed hearing loss, unilateral,Chroni c mastoiditis,Otiti s media 4 DROPS RIGHT EAR ASNEEDED IF WATER GETS IN EAR 7.5 mL 3 01/29/2016 Active Blood Glucose Monitoring Suppl (Soft Tissue RegenerationTOUCH ULTRA SYSTEM) W/DEVICE KIT Use as directed [...] 3 04/05/2018 Active Blood Glucose Monitoring Suppl ([employer] VERIO) w/Device KITIndications:Ty pe 2 diabetes mellitus with hemoglobin A1c goal of 7.0%-8.0% ([facility]) Use as directed. Recommend check glucose levels at least 2 times daily-once in AM before breakfast and once 2 hours after evening meal. 1 Kit 0 05/12/2018 Active documented as of this encounter (statuses as of 12/23/2018) Active Problems Problem Noted Date Type 2 [...] as of this encounter (statuses as of 12/23/2018) Resolved Problems Problem Noted Date Resolved Date [...] as of this encounter (statuses as of 12/23/2018) Immunizations Name Dates Previously Given Next Due [...] as of this encounter Progress Notes * Autumn Ochoa OSA - 12/23/2018 10:11 AM EST Att 2 Called patient's cell and left message for and him. Asked for his decision re: [facility] referral. Will send letter today and f/u in three weeks. documented in this encounter Plan of Treatment Upcoming Encounters Date Type Specialty Care Team Description 12/23/[address] [facility] [address] [place] [address] Type 2 diabetes mellitus with polyneuropathy (HCC)* 12/30/2018 Office Visit Podiatry Region, [place] [address] [place] [address] 01/13/2019 Pharmacy Pharmacy [facility] [place] [address] [facility] [place] [address] Health Maintenance Due Date Last Done Comments [...] For more information, please contact: [place] [phone]
--- OUTSIDE RECORDS SUMMARY | 2023-07-31 20:38 | External Medical Summary | Summary of Care ---
Author Name Unknown Organization [place] [address] Care Team Providers Care Cisco Certified Internetwork Expert Name Role Phone James Maria DO Primary Care Provider Unavailable Reason for Visit * Reason Comments Medication Refill Encounter Details Date Type Department Care Team Description 01/25/2019 Refill Family Practice [facility] 132 [facility] [place] [address] James Maria DO [address] [facility] [place] [address] [phone] Type 2 diabetes mellitus with hemoglobin A1c goal of less than 7.0% ([facility]) Allergies Active [...] 3 6 Active Blood Glucose Monitoring Suppl (ONETOUCH ULTRA [...] a day. 1 Vial 5 7 Active RELION INSULIN SYRINGE 30G X 5/16" [...] Blood Glucose Monitoring Suppl (ONETOUCH VERIO) w/Device KITIndications:T ype 2 diabetes mellitus [...] 3 9 Active MetFORMIN (GLUCOPHAGE) 1000 MG TabletIndication s:Type 2 diabetes mellitus with hemoglobin A1c goal of less than 7.0% (HCC) TAKE ONE TABLET BY MOUTH TWICE DAILY WITH MORNING AND EVENING MEALS 180 Tab 3 9 Active insulin glargine (LANTUS SOLOSTAR) 100 UNIT/ML SOPNIndications: Type 2 diabetes mellitus with hemoglobin A1c goal of less than 7.0% (HCC) 35 units at bedtime. 15 Pre-filled Pen Syringe Dosing Unit 3 9 Active NOVOLOG FLEXPEN 100 UNIT/ML SOPNIndications: Type 2 diabetes mellitus with hemoglobin A1c goal of less than 7.0% (HCC) Inject 5 Units under the skin three times a day with meals. 5 units with Breakfast, lunch, and dinner 5 Pre-filled Pen Syringe Dosing Unit 3 9 Active tamsulosin (FLOMAX) 0.4 MG Capsule Take 1 Cap by mouth daily. 90 Cap 3 9 Active insulin glargine (LANTUS SOLOSTAR) 100 UNIT/ML SOPNIndications: Type 2 diabetes mellitus with hemoglobin A1c goal of less than 7.0% (HCC) 35 units at bedtime. 15 Pre-filled Pen Syringe Dosing Unit 3 8 01/26/20 19 Discontinued NOVOLOG FLEXPEN 100 UNIT/ML SOPNIndications: Type 2 diabetes mellitus with hemoglobin A1c goal of less than 7.0% (HCC) Inject 5 Units under the skin three times a day with meals. 5 units with Breakfast, lunch, and dinner 5 Pre-filled Pen Syringe Dosing Unit 3 8 01/26/20 19 Discontinued MetFORMIN (GLUCOPHAGE) 1000 MG TabletIndication s:Type 2 diabetes mellitus with hemoglobin A1c goal of less than 7.0% (HCC) TAKE ONE TABLET BY MOUTH TWICE DAILY WITH MORNING AND EVENING MEALS 180 Tab 3 8 01/26/20 19 Discontinued tamsulosin (FLOMAX) 0.4 MG Capsule Take 1 Cap by mouth daily. 90 Cap 3 8 01/26/20 19 Discontinued amLODIPine (NORVASC) 5 MG Tablet Take 1 Tab by mouth daily. 90 Tab 3 8 01/26/20 19 Discontinued atorvaSTATin (LIPITOR) 40 MG Tablet Take 1 Tab by mouth daily. 90 Tab 3 8 01/26/20 19 Discontinued documented as of this encounter [...] Notes * Telephone Encounter - Cathi Hernandez [facility] - 01/25/2019 4:37 PM EDT Pending Prescriptions: Disp Refills amLODIPine (NORVASC) 5 MG Tablet 90 Tab 3 Sig: Take 1 Tab by mouth daily. atorvaSTATin (LIPITOR) 40 MG Tablet 90 Tab 3 Sig: Take 1 Tab by mouth daily. MetFORMIN (GLUCOPHAGE) 1000 MG Tablet 180 Tab3 Sig: TAKE ONE TABLET BY MOUTH TWICE DAILY WITH MORNING AND EVENING MEALS insulin glargine (LANTUS SOLOSTAR) 100 UN*15 Pre*3 Si units at bedtime. NOVOLOG FLEXPEN 100 UNIT/ML SOPN 5 Pre-*3 Sig: Inject 5 Units under the skin three times a day with meals. 5 units with Breakfast, lunch, and dinner tamsulosin (FLOMAX) 0.4 MG Capsule 90 Cap 3 Sig: Take 1 Cap by mouth daily. Last Office Visit: 12/13/2018 Next Office Visit: No Future Appointments If no future appointments scheduled, and last appointment is greater than a year ago, please schedule patient for a follow-up appointment Last date the medication was ordered: 04/05/18, 01/11/18, 02/10/18 Patient Phone Numbers VB Rags [phone] Labs: Lab Results Component Value Date/Time CREAT 0.9 12/13/2018 03:03 PM POTASSIUM 4.2 12/13/2018 03:03 PM TSH 2.18 11/01/2008 10:02 AM LDLCALC 85 06/04/2016 01:48 PM LDLDIRECT 53 01/11/2018 11:20 AM ALT 8 (L) 01/11/2018 11:20 AM HGBA1C 14.3 (H) 12/13/2018 03:03 PM documented in this encounter Plan of Treatment Upcoming Encounters Date Type Specialty Care Team Description 02/10/2019 Pharmacy Pharmacy [facility] [place] 132 [facility] [place] [address] 03/24/2019 Office Visit Podiatry Region, [facility] [address] [...] For more information, please contact: [place] [phone]
--- OUTSIDE RECORDS SUMMARY | 2023-07-31 20:38 | External Medical Summary | Summary of Care ---
Author Name Unknown Organization [place] [address] Care Team Providers Care Vocational Training Director Name Role Phone James Maria DO Primary Care Provider Unavailable Reason for Visit * Reason Comments Appointment Encounter Details Date Type Department Care Team Description 03/17/2019 Pharmacy Pharm[facility] [address] [facility] [address] Type 2 diabetes mellitus with polyneuropathy (HCC)* Allergies Active Allergy Reactions Severity Noted Date Comments Lisinopril Edema face/lips/tongue High 04/05/2018 documented as of this encounter (statuses as of 03/17/2019) Medications Medication Sig Dispensed Refills Start Date End Date Status ciprofloxacin-dex amethasone (CIPRODEX) 0.3-0.1 % otic suspensionIndicat ions:Mixed hearing loss, unilateral,Chroni c mastoiditis,Otiti s media 4 DROPS RIGHT EAR ASNEEDED IF WATER GETS IN EAR 7.5 mL 3 01/29/2016 Active Blood Glucose Monitoring Suppl (Wedge BusterTOUCH ULTRA SYSTEM) W/DEVICE KIT Use as directed [...] as of this encounter (statuses as of 03/17/2019) Active Problems Problem Noted Date Type 2 [...] as of this encounter (statuses as of 03/17/2019) Resolved Problems Problem Noted Date Resolved Date [...] as of this encounter (statuses as of 03/17/2019) Immunizations Name Dates Previously Given Next Due [...] Progress Notes * Joanne Parrish OSA - 03/17/2019 8:01 AM EDT After multiple attempts to contact patient with no response will discharge from [facility] clinic at this time. documented in this encounter Plan of Treatment Upcoming Encounters Date Type Specialty Care Team Description 03/17/2019 Pharmacy Pharmacy [facility] [place] [facility] [place] [address] Type 2 diabetes mellitus with polyneuropathy (HCC)* 03/24/2019 Office Visit Podiatry [place] [address] [place] [address] [...] For more information, please contact: [place] [phone]
--- OUTSIDE RECORDS SUMMARY | 2023-07-31 20:38 | External Medical Summary | Summary of Care ---
Author Name Unknown Organization [place] [address] Care Team Providers Care Narcotics Agent Name Role Phone James Maria DO Primary Care Provider Unavailable Reason for Visit * Reason Comments Follow Up 6 month return, woul d like to discuss feet Encounter Details Date Type Department Care Team Description 12/13/2018 Office Visit Family Practice [facility] 132 [facility] [place] [address] James Maria DO 132 [facility] [place] [address] [phone] Type 2 diabetes mellitus with polyneuropathy ([facility])*; Dyslipidemia, goal LDL below 100; Type 2 diabetes mellitus with hemoglobin A1c goal of less than 8.0% ([facility]); HTN, goal below 140/90; DM type 2 nursing care encounter ([facility]); Foot deformity, bilateral; Sensorineural hearing loss, unilateral [...] 3 6 Active Blood Glucose Monitoring Suppl (Extenda-Dent ULTRA SYSTEM) W/DEVICE KIT Use as directed [...] 3 8 Active Blood Glucose Monitoring Suppl (Extenda-Dent VERIO) w/Device KITIndications:T ype 2 diabetes mellitus [...] than 8.0% ([facility]) Getting A1C today and will titrate up [...] than 8.0% ([facility]) E11.9 DYSLIPIDEMIA, GOAL LDL BELOW 100 E78.5 OBESITY, BMI 30-34 (SEE ACTUAL BMI) E66.9 HTN, goal below 140/90 I10 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 Need for prophylactic vaccination and inoculation against influenza Z23 DM type 2 nursing care encounter ([facility]) E11.9 Foot deformity, bilateral M21.961, M21.962 Type [...] Performed by Agustin Saravia MD at ENDOSCOPY [facility] FOOT/TOE SURGERY NEC 11/14 L foot deformity MASTOID SURGERY REVISION/APICECTOMY age 18 [place] SHOULDER ARTHROSCOPY SURGERY 01/07 spur removed Current Outpatient Medications Medication Sig Dispense Refill Blood Glucose Monitoring Suppl (TalentSoftIO) w/Device KIT Use as directed. Recommend check [...] 100 Strip 0 Blood Glucose Monitoring Suppl (Extenda-Dent ULTRA SYSTEM) W/DEVICE KIT Use as directed [...] Reactions Lisinopril Edema face/lips/tongue James Maria DO [facility] 132 [facility] [place] [address] (This note was completed using the dictation [...] Team Description 12/30/2018 Office Visit Podiatry Region, [place] [address] [place] [address] [phone] Health Maintenance Due Date Last Done Comments [...] less than 8.0% (HCC) HTN, goal below 140/90 Unspecified essential hypertension DM type 2 nursing care encounter (HCC) Type II or unspecified type diabetes mellitus without mention of complication, not stated as uncontrolled Foot deformity, bilateral Unspecified deformity of ankle and foot, acquired Sensorineural hearing loss, unilateral documented in this encounter Advance Directives Patient has advance care planning documents on file. For more information, please contact: [place] [phone]
--- OUTSIDE RECORDS SUMMARY | 2023-07-31 20:38 | External Medical Summary | Summary of Care ---
Author Name Unknown Organization [place] [address] Care Team Providers Care Dumper [employer]ing [employer] Name Role Phone James Maria DO Primary Care Provider Unavailable Reason for Referral * Evaluate & Treat - Unlimited Visits (Within 10 days (routine)) Status Reason Specialty Diagnoses / Procedures Referred By Contact Referred To Contact Authorized Specialty Services Required Pharmacist / Pharmacy Diagnoses Type 2 diabetes mellitus with hemoglobin A1c goal of less than 8.0% ([facility]) James Maria DO 132 [facility] [place] [address] Encounter Details Date Type Department Care Team Description 12/14/2018 Telephone Family Practice [facility] [address] [place] [address] James Maria DO 132 [facility] [place] [address] [phone] Allergies Active Allergy Reactions Severity Noted Date Comments Lisinopril Edema face/lips/tongue High 04/05/2018 documented as of this encounter (statuses as of 12/24/2018) Medications Medication Sig Dispensed Refills Start Date [...] 3 04/05/2018 Active Blood Glucose Monitoring Suppl (MapMyFitness VERIO) w/Device KITIndications:Ty pe 2 diabetes mellitus with hemoglobin A1c goal of 7.0%-8.0% (HCC) Use as directed. Recommend check glucose levels at least 2 times daily-once in AM before breakfast and once 2 hours after evening meal. 1 Kit 0 05/12/2018 Active documented as of this encounter (statuses as of 12/24/2018) Active Problems Problem Noted Date Type 2 [...] as of this encounter (statuses as of 12/24/2018) Resolved Problems Problem Noted Date Resolved Date [...] as of this encounter (statuses as of 12/24/2018) Immunizations Name Dates Previously Given Next Due [...] encounter Miscellaneous Notes * Telephone Encounter - Brenda Santiago LPN - 12/14/2018 2:01 PM CECI Leyva could you please schedule this patient with [facility] clinic and let him know about an appointment Called patient and verified and reviewed note below from James Maria DO Made pt aware of A1C results and med change to increased Lantus insulin and [facility] Verbalized understanding. * Telephone Encounter - James Maria DO - 12/14/2018 1:16 PM EST Significant increase in A1C since last visit - recommend brining [facility] pharmacy on board and doing some more education and instruction with patient. Patient is hard of hearing and may have some limitations in his understanding of his disease state. Please contact patient to go over his Lantus and Metformin dosing with him to make sure he's takingboth medications as prescribed. If so, increase lantus to 40 units daily and keep daily fasting blood sugar log until MT visit. Ok to let him know that his A1C went up a good deal, and that we are going to coordinate with our Diabetes Pharmacy program ([facility]) to help improve his control. documented in this encounter Plan of Treatment Upcoming Encounters Date Type Specialty Care Team Description 12/30/2018 [place] [address] [place] [address] 01/13/2019 Pharmacy Pharmacy [facility] 132 [facility] [place] [address] Scheduled Referrals Name Priority Associated Diagnoses Order S jack PHARMACIST MEDS THERAPY MGMT REFERRAL OP Within 10 days (routine) Type 2 diabetes mellitus with hemoglobin A1c goal of less than 8.0% (HCC) Ordered: 12/14/2018 Health Maintenance Due Date Last Done Comments [...] Primary documented in this encounter Advance Directives Patient has advance care planning documents on file. For more information, please contact: [place] [phone]
--- OUTSIDE RECORDS SUMMARY | 2023-07-31 20:38 | External Medical Summary ---
Author Name Unknown Address [facility] N [facility] [place] [address] Phone Organization K01:[facility] [address] [facility] [facility] [place] [address] Laboratory Report Ordering Provider Test Date Status BENJAMIN BA 12/13/2018 15:05:00 Final Observation Date Value Abnormality Reference Status Albumin, Urine 12/13/2018 21:16 <1.20 Final Creat Ur-sCnc 12/13/2018 21:16 35 Final Microalbumin / Creatinine Ratio 12/13/2018 21:16 Uninterpretable Albumin/Creatinine Ratio due to very low albumin and creatinine values. <30 Final Performing Location [facility] [address] [facility] [place] [address]
--- OUTSIDE RECORDS SUMMARY | 2023-07-31 20:38 | External Medical Summary ---
Author Name Unknown Address [address] [place] [address] Phone Organization K0G:RADHA Vogel [address] [place] [address] Janis SANTILLAN [address] Laboratory Report Ordering Provider Test Date Status BENJAMIN BA 12/13/2018 15:03:00 Final Observation Date Value Abnormality Reference Status BUN 12/13/2018 15:48 10 6-20 Fin al Creatinine 12/13/2018 15:48 0.9 0.6-1.2 Fi nal Performing Location [facility] Erica Vogel [address] [place], [place] [address]gail Sajan Janis ASNTILLAN [address]
--- OUTSIDE RECORDS SUMMARY | 2023-07-31 20:38 | External Medical Summary | Summary of Care ---
Author Name Unknown Organization [place] [address] Care Team Providers Care Chief Librarian Circulation Department Name Role Phone James Maria DO Primary Care Provider Unavailable Reason for Visit * Reason Comments Appointment Encounter Details Date Type Department Care Team Description 01/13/2019 Pharm[facility] [address] [facility] [address] Type 2 diabetes mellitus with polyneuropathy (HCC)* Allergies Active Allergy Reactions Severity Noted Date Comments Lisinopril Edema face/lips/tongue High 04/05/2018 documented as of this encounter (statuses as of 01/13/2019) Medications Medication Sig Dispensed Refills Start Date End Date Status ciprofloxacin-dex amethasone (CIPRODEX) 0.3-0.1 % otic suspensionIndicat ions:Mixed hearing loss, unilateral,Chroni c mastoiditis,Otiti s media 4 DROPS RIGHT EAR ASNEEDED IF WATER GETS IN EAR 7.5 mL 3 01/29/2016 Active Blood Glucose Monitoring Suppl (Quadro DynamicsTOUCH ULTRA SYSTEM) W/DEVICE KIT Use as directed [...] 3 04/05/2018 Active Blood Glucose Monitoring Suppl ([employer] VERIO) w/Device KITIndications:Ty pe 2 diabetes mellitus with hemoglobin A1c goal of 7.0%-8.0% ([facility]) Use as directed. Recommend check glucose levels at least 2 times daily-once in AM before breakfast and once 2 hours after evening meal. 1 Kit 0 05/12/2018 Active documented as of this encounter (statuses as of 01/13/2019) Active Problems Problem Noted Date Type 2 [...] as of this encounter (statuses as of 01/13/2019) Resolved Problems Problem Noted Date Resolved Date [...] as of this encounter (statuses as of 01/13/2019) Immunizations Name Dates Previously Given Next Due [...] Progress Notes * Joanne Parrish OSA - 01/13/2019 8:48 AM EDT Att 3 Called patient's cell and left message for him. Asked for his decision re: [place] referral and to callus back to schedule. Will follow up in 3-4 weeks if no response documented in this encounter Plan of Treatment Upcoming Encounters Date Type Specialty Care Team Description 01/13/2019 Pharmacy Pharmacy [facility] [address] [place] [address] Type 2 diabetes mellitus with polyneuropathy (HCC)* 02/10/2019 Pharmacy Pharmacy [facility] Erica 132 [facility] [place] [address] Health Maintenance Due Date Last Done Comments [...] file. For more information, please contact: [place] [id number]
--- OUTSIDE RECORDS SUMMARY | 2023-07-31 20:39 | External Medical Summary | Summary of Care ---
Author Name Unknown Organization [place] [address] Phone Care Team Providers Care Operations Accountant Name Role Phone Lamberto Razo MD Primary Care Provider [phone] Reason for Visit * Reason Comments MEDICATION QUESTION Encounter Details Date Type Department Care Team Description 10/08/2017 Telephone Family Practice [facility] [address] [place] [address] Lamberto Razo MD 132 [facility] [place] [address] [phone] MEDICATION QUESTION Allergies Active Allergy Reactions Severity Noted Date Comments Lisinopril Edema face/lips/tongue High 04/05/2018 as of this encounter Medications Prescription Sig. Disp. Refills Start Date End Date Status ciprofloxacin-dex amethasone (CIPRODEX) 0.3-0.1 % otic suspensionIndicat ions:Mixed hearing loss, unilateral,Chroni c mastoiditis,Otiti s media 4 DROPS RIGHT EAR ASNEEDED IF WATER GETS IN EAR 7.5 mL 3 6 Active Blood Glucose Monitoring Suppl (Simple-FillUCH ULTRA SYSTEM) W/DEVICE KIT Use as directed [...] 7 Active Sildenafil Citrate (VIAGRA) 50 MG TabletIndications [...] day E11.9 300 Strip 3 7 Active lidocaine 5 % ointment APPLY 2-3 GRAMS TOPICALLY TO AFFECTED AREA 3-4 TIMES PER DAY. 1080 g 1 7 Active insulin isophane human (NOVOLIN N RELION) 100 UNIT/ML injection Inject 5 Units under the skin 2 times a day. 1 Vial 5 7 Active RELION INSULIN SYRINGE 30G X 5/16" 0.3 ML MISC 7 01/12/20 18 Discontinued aspirin enteric coated 81 MG TBECIndications:T ype 2 diabetes mellitus with diabetic neuropathy, unspecified (HCC) Take 1 Tab by mouth daily. 100 Tab 3 7 02/10/20 18 Discontinued simvastatin (ZOCOR) 80 MG TabletIndications :Dyslipidemia, goal LDL below 100 Take 1 Tab by mouth at bedtime. 90 Tab 3 7 02/10/20 18 Discontinued MetFORMIN (GLUCOPHAGE) 1000 MG TabletIndications :Type 2 diabetes mellitus with hemoglobin A1c goal of less than 7.0% (HCC) TAKE ONE TABLET BY MOUTH TWICE DAILY WITH MORNING AND EVENING MEALS 180 Tab 3 7 02/10/20 18 Discontinued tamsulosin (FLOMAX) 0.4 MG Capsule Take 1 Cap by mouth daily. 90 Cap 3 7 02/10/20 18 Discontinued Lisinopril-Hydroc hlorothiazide 10-12.5 MG per tabletIndications :Essential hypertension with goal blood pressure less than 140/90 Take 1 Tab by mouth daily. 90 Tab 3 7 02/10/20 18 Discontinued NOVOLOG FLEXPEN 100 UNIT/ML SOPNIndications:T ype 2 diabetes mellitus with hemoglobin A1c goal of less than 7.0% ([facility]) Inject 5 Units under the skin three times a day with meals. 5 units with Breakfast, lunch, and dinner 1 Pre-filled Pen Syringe Dosing Unit x 5 7 01/12/20 18 Discontinued insulin glargine (LANTUS SOLOSTAR) 100 UNIT/ML SOPNIndications:T ype 2 diabetes mellitus with hemoglobin A1c goal of less than 7.0% ([facility]) 35 units at bedtime. 5 Pre-filled Pen Syringe Dosing Unit 5 7 01/12/20 18 Discontinued insulin isophane human (NOVOLIN N RELION) 100 UNIT/ML injection Inject 5 units under the skin 3 times per day 1 Vial 5 7 10/09/20 17 Discontinued as of this encounter Active Problems Problem Noted Date MARYSOL inhibitor intolerance 04/05/2018 HTN, goal below 140/90 01/07/2016 Overview: Per HTN Protocol #27. OBESITY, BMI 30-34 (SEE ACTUAL BMI) 01/01 Overview: Per Obesity Taxonomy DYSLIPIDEMIA, GOAL LDL BELOW 100 009 Overview: Per Lipid Taxonomy. Type 2 diabetes mellitus with hemoglobin A1c goal of less than 7.0% ([facility]) 08/16/2009 Overview: Modified per Diabetes protocol #14. ICD-10 update of inactive term ADVANCE DIRECTIVE INFORMATION 07/15/2006 Overview: Pt took booklet. AC SEROUS OTITIS MEDIA 07/15/2006 Mixed hearing loss, unilateral Overview: right Sensorineural hearing loss, unilateral Overview: left Otitis media Chronic mastoiditis Allergic rhinitis Dysfunction of eustachian tube as of this encounter Resolved Problems Problem Noted Date Resolved Date Neurogenic ulcer of foot ([facility]) 05/19/2017 0 05/21/2017 HTN, GOAL BELOW 140/80 06/21/2012 6 Overview: Per HTN Protocol #27. HTN, GOAL BELOW 130/80 11/28/2009 2 Overview: Per HTN Taxonomy. DM type 2, not at goal ([facility]) 04/05/2009 Overview: Modified per Diabetes protocol #14. Dyslipidemia, goal LDL below 160 04/05/2009 10/15/2009 Overview: Per Lipid Taxonomy. Obesity, BMI not known 04/04/2009 0 Overview: Per Obesity Taxonomy HTN, goal below 140/90 12/26/2004 0 Overview: Per HTN Taxonomy. Hearing loss 11/09/2003 05/13/2017 as of this encounter Immunizations Name Dates Previously Given Next Due Pneumococcal Conjugate Vacc, 13 Valent (Prevnar) 12/24/2015 Pneumococcal Polyvalent Vacc (Pneumovax) 07/23/2011 Seasonal Influenza, Quadriva lent, No Preserve, 6 Mons & Above, IM 09/10/2017 Seasonal Influenza, Quadriva lent, No Preserve, IM 09/16/2016,11/22/2015 Seasonal Influenza, Trivalen t, with Preserve, 3yr & Above, Split 08/15/2014,2013,08/03/2012,07/04,09/10/2010,12/25/2009,08/06/20 09,11/01/2008 TD - Tetanus/Diptheria (ADULT) 11/09/2003 TDAP (age [...] Assigned at Date Recorded Not on file as of this encounter Miscellaneous Notes * Telephone Encounter - Zaira Guillory RN - 10/09/2017 10:51 AM EST Called pharmacy to clarify that it should be BID until Dr Razo reviews * Telephone Encounter - Vania Cabrera DO - 10/09/2017 9:59 AM EST Please call pharmacy rx changed to twice daily for now There was some change in rx so I'm uncertain if PCP wanted TID dose but can defer to him when he returns next week Also forwarding to Nutrition as pt was recently seen there Let me know if rx should be changed back to TID * Telephone Encounter - Ruben Valencia LPN - 10/09/2017 9:[address] Razo is not in the office today. Please review for clarification. * Telephone Encounter - Casandra Da Silva LPN - 10/08/2017 4:52 PM EST Pharmacy calling. Questioning sig for the novolin N is given 2 times a day. Sig is for 3 times a day, pharmacy calling to confirm that this is correct. in this encounter Plan of Treatment Upcoming Encounters Date Type Specialty Care Team Description 05/11/2018 Nutrition Services Nutrition Services Dinah Mohamud, RDN [address] [place] [id number] 06/07/2018 Office Visit Family Medicine James Maria DO 132 [facility] [place] [address] [phone] 06/16/2018 Office Visit Podiatry Kylie Burroughs DPM [address] [place] [address] Health Maintenance Due Date Last Done Comments DIABETES-EYE EXAM 06/30/2017 06/30/2016, , 03/02/2011 (Done elsewhere), Additional history exists DIABETES-FOOT EXAM 05/13/2018 05/13/2017, 0 05/09/2016, 2013, Additional history exists DIABETES-HGBA1C EVERY 6 MONTHS 07/14/2018 0 01/11/2018, 09/10/2017, 05/13/2017, Additional history exists DIABETES-LDL EVERY 12 MONTHS 01/11/201910/2018, 09/10/2017, 05/13/2017, Additional history exists DIABETES-URINE MICROALBUMIN EVERY 12 MONTHS 01/11/2019 01/11/2018, 12/24/2015, 02/02/2014, Additional history exists Yearly B-12 01/11/2019 01/11/2018 DTaP,Tdap,and Td Vaccines (2 - Td) 10/21/20212010, 11/09/2003 PNEUMOCOCCAL ADULT 65 YRS AND OVER Completed 2015, 07/23/2011 Influenza Vaccine (FLU shot) Completed 07/2017, 09/16/2016, 11/22/2015, Additional history exists as of this encounter Implants Not on fileas of this encounter
--- OUTSIDE RECORDS SUMMARY | 2023-07-31 20:39 | External Medical Summary | Summary of Care ---
Author Name Unknown Organization [place] [address] Phone Care Team Providers Care Manager Van Name Role Phone Lamberto Razo MD Primary Care Provider [phone] Reason for Referral * Evaluate & Treat - Unlimited Visits (Within 10 days (routine)) Status Reason Specialty Diagnoses / Procedures Referred By Contact Referred To Contact Pending Review Specialty Services Required Mold Capper Diagnoses Uncontrolled type 2 diabetes mellitus without complication, without long-term current use of insulin ([facility]) James Maria DO [address] [place] [address] Reason for Visit * Reason Comments REFERRAL Encounter Details Date Type Department Care Team Description 05/14/2018 Telephone Erica Rico [address] [place] [address] James Maria DO [address] [facility] [place] [address] [phone] REFERRAL Allergies Active Allergy Reactions Severity Noted Date Comments Lisinopril Edema face/lips/tongue High 04/05/2018 as of this encounter Medications Prescription Sig. Disp. Refills Start Date End Date Status ciprofloxacin-dexa [...] 11/13/2016 Active Sildenafil Citrate (VIAGRA) 50 MG TabletIndications: [...] day E11.9 300 Strip 3 08/24/2017 Active lidocaine 5 % ointment APPLY 2-3 GRAMS TOPICALLY TO AFFECTED AREA 3-4 TIMES PER DAY. 1080 g 1 09/08/2017 Active insulin isophane human (NOVOLIN N RELION) 100 UNIT/ML injection Inject 5 Units under the skin 2 times a day. 1 Vial 5 10/09/2017 Active insulin glargine (LANTUS SOLOSTAR) 100 UNIT/ML SOPNIndications:Ty pe 2 diabetes mellitus with hemoglobin A1c goal of less than 7.0% (HCC) 35 units at bedtime. 15 Pre-filled Pen Syringe Dosing Unit 3 01/11/2018 Active insulin glargine (LANTUS) 100 UNIT/ML injectionIndicatio ns:Type 2 diabetes mellitus with hemoglobin A1c goal of less than 7.0% (HCC) Inject 35 Units under the skin at bedtime. 35 units 15 Vial 3 01/11/2018 Active NOVOLOG FLEXPEN 100 UNIT/ML SOPNIndications:Ty pe [...] goal of less than 7.0% ([facility]) For insulin dosing 4 times daily 1 Box Dosing Unit 3 01/11/2018 Active aspirin enteric coated 81 MG TBECIndications:Ty pe 2 diabetes mellitus with diabetic neuropathy, unspecified (HCC) Take 1 Tab by mouth daily. 100 Tab 3 02/10/2018 Active MetFORMIN (GLUCOPHAGE) 1000 MG TabletIndications: Type 2 diabetes mellitus with hemoglobin A1c goal of less than 7.0% ([facility]) TAKE ONE TABLET BY MOUTH TWICE DAILY [...] 3 04/05/2018 Active Blood Glucose Monitoring Suppl ([employer]IO) w/Device KITIndications:Typ e 2 diabetes mellitus with hemoglobin A1c goal of 7.0%-8.0% ([facility]) Use as directed. Recommend check glucose levels at least 2 times daily-once in AM before breakfast and once 2 hours after evening meal. 1 Kit 0 05/12/2018 Active as of this encounter Active Problems Problem Noted Date MARYSOL inhibitor intolerance 04/05/2018 HTN, goal below 140/90 01/07/2016 Overview: Per HTN Protocol #27. OBESITY, BMI 30-34 (SEE ACTUAL BMI) 01/01 Overview: Per Obesity Taxonomy DYSLIPIDEMIA, GOAL LDL BELOW 100 009 Overview: Per Lipid Taxonomy. Type 2 diabetes mellitus with hemoglobin A1c goal of less than 7.0% ([facility]) 08/16/2009 Overview: Modified per Diabetes protocol #14. ICD-10 update of inactive term ADVANCE DIRECTIVE INFORMATION 07/15/2006 Overview: Pt took booklet. AC SEROUS OTITIS MEDIA 07/15/2006 Mixed hearing loss, unilateral Overview: right Sensorineural hearing loss, unilateral Overview: left Otitis media Chronic mastoiditis Allergic rhinitis Dysfunction of eustachian tube as of this encounter Resolved Problems Problem Noted Date Resolved Date Neurogenic ulcer of foot (HCC) 05/19/2017 0 05/21/2017 HTN, GOAL BELOW 140/80 06/21/2012 6 Overview: Per HTN Protocol #27. HTN, GOAL BELOW 130/80 11/28/2009 2 Overview: Per HTN Taxonomy. DM type 2, not at goal (HCC) 04/05/2009 Overview: Modified per Diabetes protocol #14. [...] Telephone Encounter - Dinah Mohamud RDN - 05/14/2018 4:47 PM EDT Please sign pended order for Destination Imagination Coordinator referral. Need current order due to new calendar year. Thank you. Dinah Mohamud RDN Mold Capper [facility] beeper # [phone] in this encounter Plan of Treatment Upcoming Encounters Date Type Specialty Care Team Description 06/07/2018 Office Visit Family Medicine James Maria, [address] [place] [address] 06/16/2018 Office Visit Podiatry Kylie Burroughs, DPM [address] [place] [address] Scheduled Referrals Name Priority Associated Diagnoses Order S chedule DIABETES MANAGEMENT EDUCATION (ADA) REFERRAL Within 10 days (routine) Uncontrolled type 2 diabetes mellitus without complication, without long-term current use of insulin (HCC) Ordered: 05/17/2018 Health Maintenance Due Date Last Done Comments DIABETES-EYE EXAM 06/30/2017 06/30/2016, , 03/02/2011 (Done elsewhere), Additional history exists DIABETES-FOOT EXAM 05/13/2018 05/13/2017, 0 05/09/2016, 2013, Additional history exists *DEPRESSION SCREENING, HILDAUA Gisele FOR PTS 18 AND OVER 05/15/2018 Influenza Vaccine (FLU shot) (#1) 2018 09/10/2017, [...] fileas of this encounter Visit Diagnoses Diagnosis Uncontrolled type 2 diabetes mellitus without complication, without long-term current use of insulin (HCC) - Primary in this encounter
--- OUTSIDE RECORDS SUMMARY | 2023-07-31 20:39 | External Medical Summary | Summary of Care ---
Author Name Unknown Organization [place] [address] Phone Care Team Providers Care Hardware Manager Name Role Phone James Maria DO Primary Care Provider Reason for Visit * Reason Comments MEDICATION PROBLEM Encounter Details Date Type Department Care Team Description 07/08/2018 Telephone Family Practice [facility] 132 [facility] [place] [address] James Maria DO 132 [facility] [place] [address] [phone] MEDICATION PROBLEM Allergies Active Allergy Reactions Severity Noted Date Comments Lisinopril Edema face/lips/tongue High 04/05/2018 as of this encounter Medications Prescription Sig. Disp. Refills Start Date End Date Status ciprofloxacin-dexa methasone (CIPRODEX) 0.3-0.1 % otic suspensionIndicati ons:Mixed hearing loss, unilateral,Chronic mastoiditis,Otitis media 4 DROPS RIGHT EAR ASNEEDED IF WATER GETS IN EAR 7.5 mL 3 01/29/2016 Active Blood Glucose Monitoring Suppl (VoltTOUCH ULTRA SYSTEM) W/DEVICE KIT Use as directed [...] 3 04/05/2018 Active Blood Glucose Monitoring Suppl ([employer]) w/Device KITIndications:Typ e 2 diabetes mellitus with hemoglobin A1c goal of 7.0%-8.0% ([facility]) Use as directed. Recommend check [...] A1c goal of less than 7.0% ([facility]) 08/16/2009 Overview: Modified per Diabetes protocol [...] Resolved Date Neurogenic ulcer of foot ([facility]) 05/19/2017 0 05/21/2017 HTN, GOAL BELOW 140/80 06/21/2012 6 Overview: Per HTN Protocol #27. HTN, GOAL BELOW 130/80 11/28/2009 2 Overview: Per HTN Taxonomy. DM type 2, not at goal ([facility]) 04/05/2009 Overview: Modified per Diabetes protocol #14. [...] t, with Preserve, 3yr & Above, Split 08/15/2014,2013,08/03/2012,07/04,09/10/2010,12/25/2009,08/06/20,11/01/2008 TD - Tetanus/Diptheria (ADULT) 11/09/2003 TDAP (age [...] Miscellaneous Notes * Telephone Encounter - Alessandra Boss LPN - 07/12/2018 12:27 PM EDT Pharm aware * Telephone Encounter - Rita Grossman LPN - 07/08/2018 5:44 PM EDT Called and spoke to pt, he was unsure of what medication I was talking about and put his on the phone. Talked to his and she stated it was discontinued he hasn't taken it, it was for the one time only. Advised her to call and let us know if anything changes and as of now we will not order it since he hasn't been taking. She verbalized understanding. Will let us know of any changes. * Telephone Encounter - James Maria DO - 07/08/2018 4:35 PM EDT He should probably come in at some point to discuss, but if he wants to stay on the medication and it is helping with heartburn/reflux issues that its a pretty safe one to continue. * Telephone Encounter - Rita GrossmanTONY - 07/08/2018 12:37 PM EDT Received refill request for Zantac 150mg take 1 tablet by mouth twice daily from [facility]. Pt is not on per our records, looked at scans, pt was in ER for angioedema and was D/C on the medication for 2 weeks starting (03/27/18). Would you like the pt to stay on the medication? in this encounter Plan of Treatment Upcoming Encounters Date Type Specialty Care Team Description 09/14/2018 Nutrition Services Nutrition Services Dinah Mohamud, RDN [address] [place] [address] 09/29/2018 Office Visit Podiatry Kylie Burroughs DPM [address] [place] [address] 12/13/2018 Office Visit Family Medicine James Maria, 132 [facility] [place] [address] Health Maintenance Due Date Last Done Comments Zoster Vaccines HMT (2 of 3) 09/28/2012 08/03/2012 DIABETES-EYE EXAM [...]
--- OUTSIDE RECORDS SUMMARY | 2023-07-31 20:39 | External Medical Summary | Summary of Care ---
Author Name Unknown Organization [place] [address] Phone Care Team Providers Care Word Processor Name Role Phone Lamberto Razo MD Primary Care Provider [phone] Reason for Visit * Reason Comments FACIAL SWELLING Encounter Details Date Type Department Care Team Description 03/26/2018 Convenient Care Visit [address] [place] [address] Darron Kuhn PA-C [address] [facility] [address] [place] [address] Edema of the tongue*;Lip swelling Allergies No Known Allergiesas of this encounter Medications Prescription Sig. Disp. [...] EVENING MEALS 180 Tab 3 02/10/2018 Active simvastatin (ZOCOR) 80 MG TabletIndications: Dyslipidemia, goal LDL below 100 Take 1 Tab by mouth at bedtime. 90 Tab 3 02/10/2018 Active Lisinopril-Hydroch lorothiazide 10-12.5 MG per tabletIndications: Essential hypertension with goal blood pressure less than 140/90 Take 1 Tab by mouth daily. 90 Tab 3 02/10/2018 Active tamsulosin (FLOMAX) 0.4 MG Capsule Take 1 Cap by mouth daily. 90 Cap 3 02/10/2018 Active as of this encounter Active Problems Problem Noted Date HTN, goal below 140/90 01/07/2016 Overview: Per HTN Protocol #27. OBESITY, BMI 30-34 (SEE ACTUAL BMI) 01/01 Overview: Per Obesity Taxonomy DYSLIPIDEMIA, GOAL LDL BELOW 100 009 Overview: Per Lipid Taxonomy. Type 2 diabetes mellitus with hemoglobin A1c goal of less than 7.0% ([facility]) 08/16/2009 Overview: Modified per Diabetes protocol #14. ICD-10 update of inactive term ADVANCE DIRECTIVE INFORMATION 07/15/2006 Overview: Pt took booklet. AC SEROUS OTITIS MEDIA 07/15/2006 Mixed hearing loss, unilateral Overview: right Sensorineural hearing loss, unilateral Overview: left Otitis media Chronic mastoiditis Allergic rhinitis Dysfunction of eustachian tube as of this encounter Resolved Problems Problem Noted Date Resolved Date Neurogenic ulcer of foot ([facility]) 05/19/2017 0 05/21/2017 HTN, GOAL BELOW 140/80 06/21/2012 6 Overview: Per HTN Protocol #27. HTN, GOAL BELOW 130/80 11/28/2009 2 Overview: Per HTN Taxonomy. DM type 2, not at goal ([facility]) 04/05/2009 Overview: Modified per Diabetes protocol #14. [...] Not on file as of this encounter Last Filed Vital Signs Vital Sign Reading Time Taken Blood Pressure 110/62 03/26/2018 12:45 PM EDT Pulse 96 03/26/2018 12:45 PM EDT Temperature - - Respiratory Rate 18 03/26/2018 12:4 5 PM EDT Oxygen Saturation 97% 03/26/2018 12: 45 PM EDT Inhaled Oxygen Concentration - - Weight - - Height - - Body Mass Index - - in this encounter Instructions * Patient Instructions - Darron Kuhn PA-C - 03/26/2018 12:55 PM EDT Go to [facility] ED immediately. In future, 911 should be called immediately with SOB or tongue swelling. Despite my recommendations you refused transport via ambulance which is why you signed AMA form. in this encounter Progress Notes * Darron Kuhn PA-C - 03/26/2018 12:47 PM EDT Formatting of this note may be different from the original. CONVENIENT CARE NOTE HPI: Selvin Sebastian is a 72 year old male who presents with chief complaint of edema lips/throat/tongue x 12 hours Pt reports he went to bed last night around 9PM and woke up between midnight and 4AM as he could not breathe. Reports the reason he could not breathe was d/t tongue swelling. Showed a picture on his phone of his tongue being swollen out of his mouth and drool which was taking at 4:47 AM. Reports heused ice and that helped with the swelling and he was able to breath normally. Still has a bit of swelling of lips so his wanted him to get checked out. Denies any new foods, drinks, medications, or other environmental changes. Reports he has never had this happen before. Did not take any medications like benadryl only used ice. He is alone in the exam room, he drove himself to the clinic today. ROS: See HPI for positives and negatives. Patient denies additional complaints. PAST MEDICAL HISTORY: Patient Active Problem List Diagnosis Code ADVANCE DIRECTIVE INFORMATION AC SEROUS OTITIS MEDIA H65.00 Mixed hearing loss, unilateral H90.8 Sensorineural hearing loss, unilateral H90.5 Otitis media H66.90 Chronic mastoiditis H70.10 Allergic rhinitis J30.9 Dysfunction of eustachian tube H69.80 Type 2 diabetes mellitus with hemoglobin A1c goal of less than 7.0% (HCC) E11.9 DYSLIPIDEMIA, GOAL LDL BELOW 100 E78.5 OBESITY, BMI 30-34 (SEE ACTUAL BMI) E66.9 HTN, goal below 140/90 I10 Past Surgical History: Procedure Laterality Date COLONOSCOPY 11/05 clear - repeat 10 y COLONOSCOPY, DIAGNOSTIC (RECTUM) 12/10/2015 diverticulosis, repeat 10 yrs/COLONOSCOPY FLEXIBLE PROXIMAL DIAGNOSTIC performed by Agustin Saravia MD at ENDOSCOPY [facility] FOOT/TOE SURGERY NEC 11/14 L foot deformity MASTOID SURGERY REVISION/APICECTOMY age 18 [facility] [place]GERY 01/07 spur removed Review of patient's allergies indicates: No Known Allergies Current Outpatient Prescriptions Medication Sig Dispense Refill aspirin enteric coated 81 MG TBEC Take 1 Tab by mouth daily. 100 Tab 3 Blood Glucose Monitoring Suppl (CHAIN[employer] ULTRA SYSTEM) W/DEVICE KIT Use as directed 4 times a day as needed for Hyperglycemia (high sugar) or Hypoglycemia (low sugar). Use up to four times a day as directed 1 Kit 0 ciprofloxacin-dexamethasone (CIPRODEX) 0.3-0.1 % otic suspension 4 DROPS RIGHT EAR ASNEEDED IF WATER GETS IN EAR 7.5 mL 3 Glucose Blood (ONETOUCH VERIO) STRP Use up to 4 times a day E11.9 300 Strip 3 insulin glargine (LANTUS SOLOSTAR) 100 UNIT/ML SOPN 35 units at bedtime. 15 Pre- filled Pen Syringe Dosing Unit 3 insulin glargine (LANTUS) 100 UNIT/ML injection Inject 35 Units under the skin at bedtime. 35 units15 Vial 3 insulin isophane human (NOVOLIN N RELION) 100 UNIT/ML injection Inject 5 Units under the skin 2 times a day. 1 Vial 5 Insulin Pen Needle (RELION PEN NEEDLES) 32G X 4 MM Use as directed with flexpen 100 Each 6 lidocaine 5 % ointment APPLY 2-3 GRAMS TOPICALLY TO AFFECTED AREA 3-4 TIMES PER DAY. 1080 g 1 Lisinopril-Hydrochlorothiazide 10-12.5 MG per tablet Take 1 Tab by mouth daily. 90 Tab 3 MetFORMIN (GLUCOPHAGE) 1000 MG Tablet TAKE ONE TABLET BY MOUTH TWICE DAILY WITH MORNING AND EVENINGMEALS 180 Tab 3 NOVOLOG FLEXPEN 100 UNIT/ML SOPN Inject 5 Units under the skin three times a day with meals. 5 units with Breakfast, lunch, and dinner 5 Pre-filled Pen Syringe Dosing Unit 3 ONETOUCH DELICA LANCETS 33G MISC USE ONE TO CHECK GLUCOSE 4 TIMES DAILY 100 Each 0 ONETOUCH DELICA LANCETS 33G MISC Use 3 times daily for checking blood sugars 100 Each 3 ONETOUCH ULTRA BLUE STRP USE TO CHECK GLUCOSE 4 TIMES DAILY 100 Strip 0 RELION INSULIN SYRINGE 30G X 5/16" 0.3 ML MISC For insulin dosing 4 times daily 1 Box Dosing Unit 3 Sildenafil Citrate (VIAGRA) 50 MG Tablet Take 1 Tab by mouth as needed for Erectile Dysfunction. 5 Tab 6 simvastatin (ZOCOR) 80 MG Tablet Take 1 Tab by mouth at bedtime. 90 Tab 3 tamsulosin (FLOMAX) 0.4 MG Capsule Take 1 Cap by mouth daily. 90 Cap 3 Nursing Notes: Nelida Rock, TECH 03/26/18 1242 Signed Selvin Sebastian, is a 72 year old male, who presents to the walk in clinic today that C/O Swelling of lips, throat and tongue. Went to bed at 9PM and woke up at 12AM and could not breathe. Put ice on tongue and swelling went down but still has swelling in the lips and throat. EXAM: BP 110/62 | Pulse 96 | Resp 18 | SaO2 97% GENERAL: alert, healthy, no distress, well nourished and well developed; talking in full sentences HEAD: Normocephalic, atraumatic EYES: PERRL, EOMI, Conjunctiva are pink and non-injected, sclera clear NOSE: no purulent discharge, no sinus tenderness, no mucosal erythema or edema OROPHARYNX: no exudate, mild edema of lips and upper neck, no edema of tongue, pt swallowing normally NECK: supple, mild edema upper neck HEART: regular rate & rhythm, no murmurs and no gallops LUNGS: clear to auscultation bilaterally, no wheezing, rales or rhonchi SKIN: skin color, texture, turgor are normal, no rashes or significant lesions NEURO: alert & oriented x 3 with fluent speech, no focal motor/sensory deficits, gait normal, reflexes normal and symmetric ASSESSMENT/PLAN K14.8 Edema of the tongue (primary encounter diagnosis) R22.0 Lip swelling Pt needs urgent evaluation and monitoring in the ED. Advised him he should have called 911 when he woke up unable to breath with significant tongue swelling. He refuses ambulance and wants to drive personal vehicle. AMA form signed as refusal for transport to hospital. Vitals stable at this time. Pt left clinic in stable condition. Spoke with [facility] ED Charge Nurse to notify them of pt's case and his arrival via personal vehicle. Pt verbalized understanding and agrees with plan. Patient Instructions Go to [facility] ED immediately. In future, 911 should be called immediately with SOB or tongue swelling. Despite my recommendations you refused transport via ambulance which is why you signed AMA form. [facility] [address] [facility] [address] in this encounter Nursing Notes * Nelida Rock, RONNA - 03/26/2018 12:41 PM EDT Selvin Sebastian, is a 72 year old male, who presents to the walk in clinic today that C/O Swelling of lips, throat and tongue. Went to bed at 9PM and woke up at 12AM and could not breathe. Put ice on tongue and swelling went down but still has swelling in the lips and throat. in this encounter Plan of Treatment Upcoming Encounters Date Type Specialty Care Team Description 05/11/2018 Nutrition Services Nutrition Services Dinah Mohamud, RDN [address] [address] 06/16/2018 Office Visit Podiatry Kylie Burroughs, DPM [...] fileas of this encounter Visit Diagnoses Diagnosis Edema of the tongue - Primar y Edema of larynx Lip swelling Diseases of lips in this encounter
--- OUTSIDE RECORDS SUMMARY | 2023-07-31 20:39 | External Medical Summary | Summary of Care ---
Author Name Unknown Organization [place] [address] Phone Care Team Providers Care Network Systems Engineer Name Role Phone Lamberto Razo MD Primary Care Provider [phone] Reason for Visit * Reason Comments HOSPITAL FOLLOW-UP Lisinopril made his tongue swell. Encounter Details Date Type Department Care Team Description 04/05/2018 Office Visit Family [facility] [address] [place] [address] Lamberto Razo MD [address] [place] [address] [phone] Angioedema, subsequent encounter*;Type 2 diabetes mellitus with hemoglobin A1c goal of less than 7.0% ([facility]);HTN, goal below 140/90;OBESITY, BMI 30-34 (SEE ACTUAL BMI);Mixed hearing loss, unilateral;RAUL inhibitor intolerance Allergies Active Allergy Reactions Severity Noted Date Comments Lisinopril Edema face/lips/tongue High 04/05/2018 as of this encounter Medications Prescription Sig. Disp. Refills Start Date End Date Status ciprofloxacin-dex amethasone (CIPRODEX) 0.3-0.1 % otic suspensionIndicat ions:Mixed hearing loss, unilateral,Chroni c mastoiditis,Otiti s media 4 DROPS RIGHT EAR ASNEEDED IF WATER GETS IN EAR 7.5 mL 3 6 Active Blood Glucose Monitoring Suppl ([employer] ULTRA SYSTEM) W/DEVICE KIT Use as directed [...] 8 Active insulin glargine (LANTUS) 100 UNIT/ML injectionIndicati ons:Type 2 diabetes mellitus with hemoglobin A1c goal of less than 7.0% (HCC) Inject 35 Units under the skin at bedtime. 35 units 15 Vial 3 8 Active NOVOLOG FLEXPEN 100 UNIT/ML SOPNIndications:T ype [...] less than 7.0% ([facility]) For insulin dosing 4 times daily 1 Box Dosing Unit 3 8 Active aspirin enteric coated 81 MG TBECIndications:T ype 2 diabetes mellitus with diabetic neuropathy, unspecified (HCC) Take 1 Tab by mouth daily. 100 Tab 3 8 Active MetFORMIN (GLUCOPHAGE) 1000 MG TabletIndications :Type [...] mouth daily. 90 Tab 3 8 Active simvastatin (ZOCOR) 80 MG TabletIndications :Dyslipidemia, goal LDL below 100 Take 1 Tab by mouth at bedtime. 90 Tab 3 8 04/05/20 18 Discontinued Lisinopril-Hydroc hlorothiazide 10-12.5 MG per tabletIndications :Essential hypertension with goal blood pressure less than 140/90 Take 1 Tab by mouth daily. 90 Tab 3 8 04/05/20 18 Discontinued amLODIPine (NORVASC) 5 MG Tablet Take 5 mg by mouth daily. 04/05/20 18 Discontinued as of this encounter Active Problems Problem Noted Date RAUL inhibitor intolerance 04/05/2018 HTN, goal below 140/90 01/07/2016 Overview: Per HTN Protocol #27. OBESITY, BMI 30-34 (SEE ACTUAL BMI) 01/01 Overview: Per Obesity Taxonomy DYSLIPIDEMIA, GOAL LDL BELOW 100 009 Overview: Per Lipid Taxonomy. Type 2 diabetes mellitus with hemoglobin A1c goal of less than 7.0% ([facility]) 08/16/2009 Overview: Modified per Diabetes protocol #14. ICD-10 update of inactive term ADVANCE DIRECTIVE INFORMATION 07/15/2006 Overview: Pt took booklet. AC SEROUS OTITIS MEDIA 07/15/2006 Mixed hearing loss, unilateral Overview: right Sensorineural hearing loss, unilateral Overview: left Otitis media Chronic mastoiditis Allergic rhinitis Dysfunction of eustachian tube as of this encounter Resolved Problems Problem Noted Date Resolved Date Neurogenic ulcer of foot ([facility]) 05/19/2017 0 05/21/2017 HTN, GOAL BELOW 140/80 06/21/2012 6 Overview: Per HTN Protocol #27. HTN, GOAL BELOW 130/80 11/28/2009 2 Overview: Per HTN Taxonomy. DM type 2, not at goal ([facility]) 04/05/2009 Overview: Modified per Diabetes protocol #14. [...] Vital Sign Reading Time Taken Blood Pressure 130/80 04/05/2018 12:55 PM EDT Pulse 88 04/05/2018 12:55 PM EDT Temperature - - Respiratory Rate - - Oxygen Saturation - - Inhaled Oxygen Concentration - - Weight 93.6 kg (206 lb 6 oz) 04/05/2018 12:55 PM EDT Height - - Body Mass Index 33.31 04/05/2018 12:55 PM EDT in this encounter Progress Notes * Lamberto Razo MD - 04/06/2018 1:21 PM EDT Subjective: Patient here for hospital follow-up He was hospitalized overnight on 03/26 because of angioedema related to lisinopril treatment He had been on lisinopril for 10 years but developed sudden edema of the tone airway and lips This resolved with treatment in the ER, presently on tapering dose of prednisone Now on amlodipine for blood pressure Blood pressure doing pretty well No more swelling or throat symptoms He is here with his reviewed his medications Still on insulin at present dose in addition to metformin Still on simvastatin 80 mg daily Last A1c was 8.2 Blood sugars have been high probably from prednisone Objective: TMs franco throat unremarkable no inflammation Neck without lymphadenopathy or thyromegaly Lungs clear Cardiac exam with regular rate rhythm no murmur Extremities without edema Assessment: T78.3XXD Angioedema, subsequent encounter (primary encounter diagnosis)-caused by lisinopril Now off lisinopril, on amlodipine for blood pressure Blood pressure controlled E11.9 Type 2 diabetes mellitus with hemoglobin a1c goal of less than 7.0% (hcc) Continue insulin and metformin Will plan to switch from Simvastatin to atorvastatin because of drug interaction I10 Htn, goal below 140/90-controlled Continue amlodipine E66.9 Obesity, bmi 30-34 (see actual bmi) H90.8 Mixed hearing loss, unilateral Z78.9 Raul inhibitor intolerance Follow up: Return in about 2 months (around 06/05/2018). Will do A1c at that time in this encounter Plan of Treatment Upcoming Encounters Date Type Specialty Care Team Description 05/11/2018 Nutrition Services Nutrition Services Dinah Mohamud, ALFIE [address] [place] [address] [phone] 06/07/2018 Office Visit Family Medicine New Provider Fam James Kimbrough [address] [facility] [place] [address] [phone] 06/16/2018 Office Visit Podiatry Kylie Burroughs, DPMarga [address] [place] [...] fileas of this encounter Visit Diagnoses Diagnosis Angioedema, subsequent encou nter - Primary Type 2 diabetes mellitus wit h hemoglobin A1c goal of less than 7.0% (HCC) HTN, goal below 140/90 Unspecified essential hypertension OBESITY, BMI 30-34 (SEE ACTU AL BMI) Obesity, unspecified Mixed hearing loss, unilater al RAUL inhibitor intolerance Other drug allergy in this encounter
--- OUTSIDE RECORDS SUMMARY | 2023-07-31 20:39 | External Medical Summary | Summary of Care ---
Author Name Unknown Organization [place] [address] Care Team Providers Care Emergency Care Attendant Name Role Phone James Maria Hardikfiliberto Primary Care Provider Reason for Visit * Reason Comments Follow Up diabetic foot care Encounter Details Date Type Department Care Team Description 09/29/2018 Office Visit Podiatry [facility] [address] [facility] [place] [address] Kylie Burroughs, DPM [address] [facility] [place] [address] Onychomycosis*; Type 2 diabetes mellitus with hemoglobin A1c goal of less than 7.0% ([facility]); DM type 2 with diabetic peripheral neuropathy ([facility]) Allergies Active Allergy Reactions Severity Noted Date Comments Lisinopril Edema face/lips/tongue High 04/05/2018 as of this encounter Medications Medication Sig Dispensed Refills Start Date End Date Status ciprofloxacin-dex amethasone (CIPRODEX) 0.3-0.1 % otic suspensionIndicat ions:Mixed hearing loss, unilateral,Chroni c mastoiditis,Otiti s media 4 DROPS RIGHT EAR ASNEEDED IF WATER GETS IN EAR 7.5 mL 3 01/29/2016 Active Blood Glucose Monitoring Suppl (myCampusTutorsTOUCH ULTRA SYSTEM) W/DEVICE KIT Use as directed [...] 01/11/2018 Active insulin glargine (LANTUS) 100 UNIT/ML injectionIndicati [...] 3 04/05/2018 Active Blood Glucose Monitoring Suppl (ImpressPages VERIO) w/Device KITIndications:Ty pe 2 diabetes mellitus with hemoglobin A1c goal of 7.0%-8.0% ([facility]) Use as directed. Recommend check glucose levels at least 2 times daily-once in AM before breakfast and once 2 hours after evening meal. 1 Kit 0 05/12/2018 Active as of this encounter Active Problems Problem Noted Date AMRYSOL inhibitor intolerance 04/05/2018 HTN, goal below 140/90 01/07/2016 Overview: Per HTN Protocol #27. OBESITY, BMI 30-34 (SEE ACTUAL BMI) 01/01 Overview: Per Obesity Taxonomy DYSLIPIDEMIA, GOAL LDL BELOW 100 009 Overview: Per Lipid Taxonomy. Type 2 diabetes mellitus with hemoglobin A1c goal of less than 7.0% 08/16/2009 Overview: Modified per Diabetes protocol #14. [...] Start Travel End as of this encounter Progress Notes * Kylie Burroughs DPM - 10/02/2018 1:46 PM EST Podiatry Established Note [facility] Name: Selvin Vann : 1945 Date: 09/29/2018 REASON FOR VISIT: diabetic foot care SUBJECTIVE:This patient is a 73year old male who presents today accompanied by a caregiver. The patient complains of elongated, thickened, discolored toenails. The patient states that the nails are difficult to reach and to trim. The patient notes pain to the nails and surrounding skin with enclosed shoe gear and with ambulation. He does have type II diabetes mellitus. He has been checking his BS. Past Medical History: Diagnosis Date Allergic rhinitis 2003 Chronic mastoiditis 2003 Dysfunction of eustachian tube 2003 Mixed hearing loss, unilateral 2003 right Otitis media 2004 Sensorineural hearing loss, unilateral 2004 left ALLERGIES: Review of patient's allergies indicates: Allergen Reactions Lisinopril Edema face/lips/tongue FOCUSED PODIATRIC EXAM: Vascular: Pedal pulses palpable including dorsalis pedis and posterior tibial artery at 2/4 bilaterally. Capillary refill time is within normal limits to all toes. Non-pittingedema noted to the bilaterallower legs. No warmth. Absence of pedal hair growth noted. Neurologic: Sensation (light touch) intact to the bilateral lower extremities. Musculoskeletal: Manual muscle strength is 5/5 to all compartments of the bilateral lower extremities. There is mild pain reported with palpation of toes 1-5 bilaterally. This includes the level of the nail. Dermatological: Skin temperature is within normal limits. Skin is thin, atrophic. No open lesions noted. No interdigital changes. No erythema/discoloration. Faint scars noted to the dorsal left first and second toes/metatarsals. Toenails 1-5 bilaterally are thickened, elongated, and discolored. The bilateral first toenails show subungual debris. Small less than 1mm in diameter red eschar to lateral right first toe. Q Codes: Q8 - Class B Findings: B2: Advanced trophic changes such as (three of the following): B2a: Hair growth (Decrease or absence) , B2b: Nail Changes (thickening) and B2d: Skin texture (thin, shiny) Q9 - Class C Findings: C3: Edema and C4: Parasthesias (abnormal spontaneous sensations in the feet) DIAGNOSTIC STUDIES: Hemoglobin AIC Results: HEMOGLOBIN, A1C(%) Stephie Dt/Tm Resulted Value Status 01/11/18 11:20A 01/11/18 8.2* FINAL 09/10/17 11:28A 09/10/17 9.4* FINAL 05/13/17 11:12A 05/13/17 7.3* FINAL ASSESSMENT: 1. Onychomycosis TA T1 T2 T3 T4 T5 T6 T7 T8 T9 2. Type 2 diabetes mellitus with hemoglobin A1c goal of less than 7.0% ([facility]) 3. DM type 2 with diabetic peripheral neuropathy ([facility]) PLAN: Procedure: After mild cleansing and drying of feet, toenails 1-5 bilaterally were manually and mechanically debrided without incident. A nail splitter was used to remove all incurvating edges. A hand thermal cutter wasused to trim nail to appropriate length. An electrical bur was used in a side to side motion to reduce nail thickness, hypertrophic growth, and to smooth all edges. Patient tolerated well. They noted improvement following procedure. Follow up: 3 mo Kylie Burroughs DPM in this encounter Nursing Notes * Laxmi Wang LPN - 09/29/2018 10:27 AM EST Pt presents for diabetic foot care. Bereket Wang LPN in this encounter Plan of Treatment Upcoming Encounters Date Type Specialty Care Team Description 10/12/2018 Office Visit Family Medicine James Maria, [address] [place] [address] [phone] 12/13/2018 Office Visit Family Medicine James Maria, [address] [place] [address] [phone] 12/30/2018 Office Visit Podiatry Region, [facility] [address] [place] [address] [phone] Health Maintenance Due Date Last Done Comments [...] fileas of this encounter Visit Diagnoses Diagnosis Onychomycosis- Primary Dermatophytosis of nail Type 2 diabetes mellitus with hemoglobin A1c goal of less than 7.0% (HCC) DM type 2 with diabetic peripheral neuropathy (HCC) Type II or unspecified type diabetes mellitus with neurological manifestations, not stated as uncontrolled in this encounter Advance Directives Patient has advance care planning documents on file. For more information, please contact: [place] [phone]
--- OUTSIDE RECORDS SUMMARY | 2023-07-31 20:39 | External Medical Summary | Summary of Care ---
Author Name Unknown Organization [place] [address] Phone Care Team Providers Care Billing Services Manager Name Role Phone Lamberto Razo MD Primary Care Provider [phone] Reason for Visit * Reason Comments Medication Management Encounter Details Date Type Department Care Team Description 04/05/2018 Telephone Family Practice [facility] [address] [place] [address] Lamberto Razo MD 132 [facility] [place] [address] [phone] Medication Management Allergies Active Allergy Reactions Severity Noted Date Comments Lisinopril Edema face/lips/tongue High 04/05/2018 as of this encounter Medications Prescription Sig. Disp. Refills Start Date End Date Status ciprofloxacin-dex amethasone (CIPRODEX) 0.3-0.1 % otic suspensionIndicat ions:Mixed hearing loss, unilateral,Chroni c mastoiditis,Otiti s media 4 DROPS RIGHT EAR ASNEEDED IF WATER GETS IN EAR 7.5 mL 3 6 Active Blood Glucose Monitoring Suppl (exurbe cosmeticsUCH ULTRA SYSTEM) W/DEVICE KIT Use as directed [...] than 7.0% ([facility]) TAKE ONE TABLET BY MOUTH TWICE DAILY [...] less than 7.0% ([facility]) 08/16/2009 Overview: Modified per Diabetes protocol #14. ICD-10 update of inactive term ADVANCE DIRECTIVE INFORMATION 07/15/2006 Overview: Pt took booklet. AC SEROUS OTITIS MEDIA 07/15/2006 Mixed hearing loss, unilateral Overview: right Sensorineural hearing loss, unilateral Overview: left Otitis media Chronic mastoiditis Allergic rhinitis Dysfunction of eustachian tube as of this encounter Resolved Problems Problem Noted Date Resolved Date Neurogenic ulcer of foot ([facility]) 05/19/2017 0 05/21/2017 HTN, GOAL BELOW 140/80 [...] encounter Miscellaneous Notes * Telephone Encounter - Amber Cutler RN - 04/05/2018 1:29 PM EDT Spoke to and she has been made aware of all below and has no questions * Telephone Encounter - Lamberto aRzo MD - 04/05/2018 1:22 PM EDT Please call patient I did send a prescription for amlodipine to [facility] On looking into it, there is drug interaction between simvastatin and amlodipine we should avoid this combination We should stop simvastatin 80 mg daily for cholesterol Replace it with Lipitor 40 mg daily continue amlodipine 5 mg daily for blood pressure Prescription was sent to [facility] This drug will work for cholesterol in this encounter Plan of Treatment Upcoming Encounters Date Type Specialty Care Team Description 05/11/2018 Nutrition Services Nutrition Services Dinah Mohamud, RDN [address] [place] [address] 06/07/2018 Office Visit Family Medicine New Provider Fam James Kimbrough [address] [facility] [place] [address] [phone] 06/16/2018 Office Visit Podiatry Kylie Burroughs DPM [...]
--- OUTSIDE RECORDS SUMMARY | 2023-07-31 20:39 | External Medical Summary | Summary of Care ---
Author Name Unknown Organization [place] [address] Phone Care Team Providers Care Billing Administrator Name Role Phone Lamberto Razo MD Primary Care Provider [phone] Reason for Visit * Reason Comments MEDICATION REFILL Encounter Details Date Type Department Care Team Description 02/09/2018 Refill Family Practice [facility] 132 [facility] [place] [address] Lamberto Razo MD 132 [facility] [place] [address] [phone] Type 2 diabetes mellitus with diabetic neuropathy, unspecified ([facility]);Type 2 diabetes mellitus with hemoglobin A1c goal of less than 7.0% ([facility]);Dyslipidemia, goal LDL below 100;Essential hypertension with goal blood pressure less than 140/90 Allergies Active Allergy Reactions Severity Noted Date Comments Lisinopril Edema face/lips/tongue High 04/05/2018 as of this encounter Medications Prescription Sig. Disp. Refills Start Date End Date Status ciprofloxacin-dex amethasone (CIPRODEX) 0.3-0.1 % otic suspensionIndicat ions:Mixed hearing loss, unilateral,Chroni c mastoiditis,Otiti s media 4 DROPS RIGHT EAR ASNEEDED IF WATER GETS IN EAR 7.5 mL 3 6 Active Blood Glucose Monitoring Suppl (Busy[employer] Software ULTRA SYSTEM) W/DEVICE KIT Use as directed 4 times a day as needed for Hyperglycemia (high sugar) or Hypoglycemia (low sugar). Use up to four times a day as directed 1 Kit 0 03/29/201 6 Active ONETOUCH ULTRA BLUE STRP USE [...] EVENING MEALS 180 Tab 3 8 Active aspirin enteric coated 81 [...] 180 Tab 3 7 02/10/20 18 Discontinued Lisinopril-Hydroc hlorothiazide 10-12.5 MG per tabletIndications :Essential hypertension with goal blood pressure less than 140/90 Take 1 Tab by mouth daily. 90 Tab 3 7 02/10/20 18 Discontinued simvastatin (ZOCOR) 80 MG TabletIndications :Dyslipidemia, goal LDL below 100 Take 1 Tab by mouth at bedtime. 90 Tab 3 8 04/05/20 18 Discontinued Lisinopril-Hydroc hlorothiazide 10-12.5 MG per tabletIndications :Essential hypertension with goal blood pressure less than 140/90 Take 1 Tab by mouth daily. 90 Tab 3 8 04/05/20 18 Discontinued as of this encounter Active Problems Problem Noted Date MARYSOL inhibitor intolerance 04/05/2018 HTN, goal below 140/90 01/07/2016 Overview: Per HTN Protocol #27. OBESITY, BMI 30-34 (SEE ACTUAL BMI) 01/01 Overview: Per Obesity Taxonomy DYSLIPIDEMIA, GOAL LDL BELOW 100 009 Overview: Per Lipid Taxonomy. Type 2 diabetes mellitus with hemoglobin A1c goal of less than 7.0% ([facility]) 08/16/2009 Overview: Modified per Diabetes [...] Date Resolved Date Neurogenic ulcer of foot ([facility]) 05/19/2017 0 05/21/2017 HTN, GOAL BELOW 140/80 06/21/2012 6 Overview: Per HTN Protocol #27. HTN, GOAL BELOW 130/80 11/28/2009 2 Overview: Per HTN Taxonomy. DM type 2, not at goal ([facility]) 04/05/2009 Overview: Modified per Diabetes [...] encounter Miscellaneous Notes * Telephone Encounter - Alva Jones [facility] - 02/10/2018 10:14 AM EDT Signed Prescriptions: Disp Refills aspirin enteric coated 81 MG TBEC 100 Tab3 Sig: Take 1 Tab by mouth daily. Authorizing Provider: LAMBERTO RAZO Ordering User: ALVA JONES MetFORMIN (GLUCOPHAGE) 1000 MG Tablet 180 Tab3 Sig: TAKE ONE TABLET BY MOUTH TWICE DAILY WITH MORNING AND EVENING MEALS Authorizing Provider: LAMBERTO RAZO Ordering User: ALVA JONES simvastatin (ZOCOR) 80 MG Tablet 90 Tab 3 Sig: Take 1 Tab by mouth at bedtime. Authorizing Provider: LAMBERTO RAZO Ordering User: ALVA JONES Lisinopril-Hydrochlorothiazide 10-12.5 MG *90 Tab 3 Sig: Take 1 Tab by mouth daily. Authorizing Provider: LAMBERTO RAZO Ordering User: ALVA JONES * Telephone Encounter - Alva Jones [facility] - 02/10/2018 10:13 AM EDT Approved all as previous. Labs and office visit up to date. Thanks, Alva Jones [facility] Staff Pharmacist Refill Call Center [phone] 02/10/2018, 10:13 AM * Telephone Encounter - Alessandra Bolaños OSA - 02/09/2018 9:55 AM EDT Formatting of this note may be different from the original. Pending Prescriptions: Disp Refills aspirin enteric coated 81 MG TBEC 100 Tab3 Sig: Take 1 Tab by mouth daily. MetFORMIN (GLUCOPHAGE) 1000 MG Tablet 180 Tab3 Sig: TAKE ONE TABLET BY MOUTH TWICE DAILY WITH MORNING AND EVENING MEALS simvastatin (ZOCOR) 80 MG Tablet 90 Tab 3 Sig: Take 1 Tab by mouth at bedtime. Lisinopril-Hydrochlorothiazide 10-12.5 MG*90 Tab 3 Sig: Take 1 Tab by mouth daily. Last Office Visit: 01/11/2018 Next Office Visit: No Future Appointments If no future appointments scheduled, and last appointment is greater than a year ago, please schedule patient for a follow-up appointment Last date the medication was ordered: 05/13/2017, 08/24/2017 x2 meds, 09/10/2017 Patient Phone Numbers Labs: Lab Results Component Value Date/Time CREAT 1.1 01/11/2018 11:20 AM POTASSIUM 4.4 01/11/2018 11:20 AM TSH 2.18 11/01/2008 10:02 AM LDLCALC 85 06/04/2016 01:48 PM LDLDIRECT 53 01/11/2018 11:20 AM ALT 8 (L) 01/11/2018 11:20 AM HGBA1C 8.2 (H) 01/11/2018 11:20 AM in this encounter Plan of Treatment Upcoming Encounters Date Type Specialty Care Team Description 05/11/2018 Nutrition Services Nutrition Services Dinah Mohamud, ALFIE [address] [facility] [place] [address] 06/07/2018 Office Visit Family Medicine James Maria DO 132 [facility] [place] [address] 06/16/2018 Office Visit Podiatry Kylie Burroughs, REMEDIOS [address] [place] [address] Health Maintenance [...] fileas of this encounter Visit Diagnoses Diagnosis Type 2 diabetes mellitus wit h diabetic neuropathy, unspecified (HCC) Type 2 diabetes mellitus wit h hemoglobin A1c goal of less than 7.0% (HCC) Dyslipidemia, goal LDL below 100 Other and unspecified hyperlipidemia Essential hypertension with goal blood pressure less than 140/90 in this encounter
--- OUTSIDE RECORDS SUMMARY | 2023-07-31 20:39 | External Medical Summary | Summary of Care ---
Author Name Unknown Organization [place] [address] Phone Care Team Providers Care Consulting Systems Engineer Name Role Phone Lamberto Razo MD Primary Care Provider [phone] Encounter Details Date Type Department Care Team Description 03/27/2018 Scan Encounter Unspecified Department <No scans attached> Allergies Active Allergy Reactions [...] of less than 7.0% ([facility]) 08/16/2009 Overview: Modified per Diabetes protocol #14. ICD-10 update of inactive term ADVANCE DIRECTIVE INFORMATION 07/15/2006 Overview: Pt took booklet. AC SEROUS OTITIS MEDIA 07/15/2006 Mixed hearing loss, unilateral Overview: right Sensorineural hearing loss, unilateral Overview: left Otitis media Chronic mastoiditis Allergic rhinitis Dysfunction of eustachian tube as of this encounter Resolved Problems Problem Noted Date Resolved Date Neurogenic ulcer of foot ([facility]) 05/19/2017 0 05/21/2017 HTN, GOAL BELOW 140/80 06/21/2012 6 Overview: Per HTN Protocol #27. HTN, GOAL BELOW 130/80 11/28/2009 2 Overview: Per HTN Taxonomy. DM type 2, not at goal ([facility]) 04/05/2009 Overview: Modified per Diabetes protocol #14. [...] Not on file as of this encounter Plan of Treatment Upcoming Encounters Date Type Specialty Care Team Description 05/11/2018 Nutrition Services Nutrition Services Dinah Mohamud, ALFIE [address] [place] [address] 06/07/2018 Office Visit Family Medicine New Provider Fam James Kimbrough 132 [facility] [place] [address] [phone] 06/16/2018 Office Visit Podiatry Kylie Burroughs, REMEDIOS [address] [place] [...]
--- OUTSIDE RECORDS SUMMARY | 2023-07-31 20:39 | External Medical Summary | Summary of Care ---
Author Name Unknown Organization [place] [address] Phone Care Team Providers Care Program Management Specialist Name Role Phone Lamberto Razo MD Primary Care Provider [phone] Reason for Visit * Reason Comments SELF-BLOOD GLUCOSE MONITORING Encounter Details Date Type Department Care Team Description 05/12/2018 Telephone Trisha, Erica [facility] [address] [place] [address] James Maria DO [address] [facility] [place] [address] [phone] SELF-BLOOD GLUCOSE MONITORING Allergies Active Allergy Reactions Severity Noted Date Comments Lisinopril Edema face/lips/tongue High 04/05/2018 as of this encounter Medications Prescription Sig. Disp. Refills Start Date End Date Status ciprofloxacin-dexa methasone (CIPRODEX) 0.3-0.1 % otic suspensionIndicati ons:Mixed hearing loss, unilateral,Chronic mastoiditis,Otitis media 4 DROPS RIGHT EAR ASNEEDED IF WATER GETS IN EAR 7.5 mL 3 01/29/2016 Active Blood Glucose Monitoring Suppl (RFI InformatiqueTOUCH ULTRA SYSTEM) W/DEVICE KIT Use as directed [...] goal of less than 7.0% ([facility]) TAKE ONE TABLET BY MOUTH TWICE DAILY [...] 3 04/05/2018 Active Blood Glucose Monitoring Suppl (atVenu VERIO) w/Device KITIndications:Typ e 2 diabetes mellitus [...] goal of less than 7.0% ([facility]) 08/16/2009 Overview: Modified per Diabetes [...] Date Resolved Date Neurogenic ulcer of foot ([facility]) 05/19/2017 0 05/21/2017 HTN, GOAL BELOW 140/80 06/21/2012 6 Overview: Per HTN Protocol #27. HTN, GOAL BELOW 130/80 11/28/2009 2 Overview: Per HTN Taxonomy. DM type 2, not at goal ([facility]) 04/05/2009 Overview: Modified per Diabetes [...] Telephone Encounter - Dinah Mohamud RDN - 05/12/2018 4:23 PM EDT Please sign pended order for One Touch Verio glucometer. Thank you. Dinah Mohamud RDN Convex Grinder Operator [facility] beeper # [phone] in this encounter Plan of Treatment Upcoming Encounters Date Type Specialty Care Team Description 06/07/2018 Office Visit Family Medicine James Maria DO 132 [facility] [place] [address] 06/16/2018 Office Visit Podiatry Kylie Burroughs, REMEDIOS [address] [place] [address] [phone] Health Maintenance Due Date Last Done Comments DIABETES-EYE EXAM 06/30/2017 06/30/2016, , 03/02/2011 (Done elsewhere), Additional history exists DIABETES-FOOT EXAM 05/13/2018 05/13/2017, 0 05/09/2016, 2013, Additional history exists Influenza Vaccine (FLU shot) [...] Diagnosis Type 2 diabetes mellitus wit h hemoglobin A1c goal of 7.0%-8.0% ([facility]) - Primary in this encounter
--- OUTSIDE RECORDS SUMMARY | 2023-07-31 20:39 | External Medical Summary | Summary of Care ---
Author Name Unknown Organization [place] [address] Phone Care Team Providers Care Roving Carrier Name Role Phone James Maria Primary Care Provider Reason for Visit * Reason Comments FOLLOW UP Encounter Details Date Type Department Care Team Description 06/16/2018 Office Visit Podiatry [facility] 132 [facility] [place] [address] Kylie Burroughs, DPM [address] [place] [address] Onychomycosis*;Type 2 diabetes mellitus with hemoglobin A1c goal of less than 7.0% ([facility]);DM type 2 with diabetic peripheral neuropathy ([facility]) Allergies Active Allergy Reactions Severity Noted Date Comments Lisinopril Edema face/lips/tongue High 04/05/2018 as of this encounter Medications Prescription Sig. Disp. Refills Start Date End Date Status ciprofloxacin-dexa methasone (CIPRODEX) 0.3-0.1 % otic suspensionIndicati ons:Mixed hearing loss, unilateral,Chronic mastoiditis,Otitis media 4 DROPS RIGHT EAR ASNEEDED IF WATER GETS IN EAR 7.5 mL 3 01/29/2016 Active Blood Glucose Monitoring Suppl (Studio SBVTOUCH ULTRA SYSTEM) W/DEVICE KIT Use as directed [...] goal of less than 7.0% ([facility]) TAKE ONE TABLET BY MOUTH TWICE DAILY [...] 3 04/05/2018 Active Blood Glucose Monitoring Suppl (Fabric7 Systems VERIO) w/Device KITIndications:Typ e 2 diabetes mellitus with hemoglobin A1c goal of 7.0%-8.0% ([facility]) Use as directed. Recommend check glucose levels at least 2 times daily-once in AM before breakfast and once 2 hours after evening meal. 1 Kit 0 05/12/2018 Active terbinafine (LAMISIL AT) 1 % cream Apply topically to affected area daily for 21 days. To affected area. 42 g 1 06/07/2018 8 Active as of this encounter Active Problems Problem Noted Date MARYSOL inhibitor intolerance 04/05/2018 HTN, goal below 140/90 01/07/2016 Overview: Per HTN Protocol #27. OBESITY, BMI 30-34 (SEE ACTUAL BMI) 01/01 Overview: Per Obesity Taxonomy DYSLIPIDEMIA, GOAL LDL BELOW 100 009 Overview: Per Lipid Taxonomy. Type 2 diabetes mellitus with hemoglobin A1c goal of less than 7.0% ([facility]) 08/16/2009 Overview: Modified per Diabetes protocol #14. ICD-10 update of inactive term ADVANCE DIRECTIVE INFORMATION 07/15/2006 Overview: Pt took booklet. AC SEROUS OTITIS MEDIA 07/15/2006 Mixed hearing loss, unilateral Overview: right Sensorineural hearing loss, unilateral Overview: left Otitis media Chronic mastoiditis Allergic rhinitis Dysfunction of eustachian tube as of this encounter Resolved Problems Problem Noted Date Resolved Date Neurogenic ulcer of foot ([facility]) 05/19/2017 0 05/21/2017 HTN, GOAL BELOW 140/80 [...] Not on file as of this encounter Progress Notes * Kylie Burroughs DPM - 06/16/2018 10:29 AM EDT Formatting of this note may be different from the original. Podiatry Established Note [facility] Name: Selvin Sebastian : 1945 Date: 06/16/2018 REASON FOR VISIT:diabetic foot care SUBJECTIVE: This patient is a 72year old male who presents today accompanied by [...] eustachian tube 2003 Mixed hearing loss, unilateral 2004 right Otitis media 2004 Sensorineural hearing loss, [...] touch) intact to the bilateral lower extremities. Patient is able to detect 5/10left and 6/10 right with 5.07 [place] Monofilament. Vibratory sensation is absent to thebilateral foot and ankle. Musculoskeletal: Manual muscle strength is 5/5 to [...] The bilateral first toenails show subungual debris. Q Codes: Q8 - Class B Findings: [...] A1c goal of less than 7.0% (HCC) 3. DM type 2 with diabetic peripheral neuropathy (HCC) PLAN: Procedure: After mild cleansing and drying of feet, toenails 1-5 bilaterally were manually and mechanically debrided without incident. A nail splitter was used to remove all incurvating edges. A computerized table cutter wasused to trim nail to appropriate length. An electrical bur was used in a side to side motion to reduce nail thickness, hypertrophic growth, and to smooth all edges. Patient tolerated well. They noted improvement following procedure. Follow up: 3 mo Kylie Burroughs DPM in this encounter Nursing Notes * Ivonne Larkin LPN - 06/16/2018 10:27 AM EDT Pt presents today for diabetic nail care. in this encounter Plan of Treatment Upcoming Encounters Date Type Specialty Care Team Description 12/13/2018 Office Visit Family Medicine James aMria, [address] [facility] [place] [address] [phone] Scheduled Tests Name Priority Associated Diagnoses Order S chedule DEBRIDEMENT OF NAILS 6 OR MORE Routine Onychomycosis Type 2 diabetes mellitus with hemoglobin A1c goal of less than 7.0% (HCC) DM type 2 with diabetic peripheral neuropathy (HCC) Ordered: 06/16/2018 Health Maintenance Due Date Last Done Comments [...] fileas of this encounter Visit Diagnoses Diagnosis Onychomycosis - Primary Dermatophytosis of nail Type 2 diabetes mellitus wit h hemoglobin A1c goal of less than 7.0% (HCC) DM type 2 with diabetic bettina pheral neuropathy (HCC) Type II or unspecified type diabetes mellitus with neurological manifestations, not stated as uncontrolled in this encounter
--- OUTSIDE RECORDS SUMMARY | 2023-07-31 20:39 | External Medical Summary | Summary of Care ---
Author Name Unknown Organization [place] [address] Phone Care Team Providers Care Cutter Gas Name Role Phone Lamberto Razo MD Primary Care Provider [phone] Reason for Visit * Reason Comments DSMT FOLLOW-UP Encounter Details Date Type Department Care Team Description 05/11/2018 Nutrition Services Nutrition, [facility] [address] [facility] [place] [address] Dinah Mohamud, RDN [address] [place] [address] Type 2 diabetes mellitus with hemoglobin A1c goal of less than 7.0% ([facility])*;OBESITY, BMI 30-34 (SEE ACTUAL BMI);Dyslipidemia, goal LDL below 100;HTN, goal below 140/90 Allergies Active Allergy Reactions [...] mellitus with diabetic neuropathy, unspecified ([facility]) Take 1 Tab by mouth daily. 100 Tab 3 02/10/2018 Active MetFORMIN (GLUCOPHAGE) 1000 MG TabletIndications: Type 2 diabetes mellitus with hemoglobin A1c goal of less than 7.0% ([facility]) TAKE ONE TABLET BY MOUTH TWICE DAILY [...] mouth daily. 90 Tab 3 04/05/2018 Active as of this encounter Active Problems Problem Noted Date MARYSOL inhibitor intolerance 04/05/2018 HTN, goal below 140/90 01/07/2016 Overview: Per HTN Protocol #27. OBESITY, BMI 30-34 (SEE ACTUAL BMI) 01/01 Overview: Per Obesity Taxonomy DYSLIPIDEMIA, GOAL LDL BELOW 100 009 Overview: Per Lipid Taxonomy. Type 2 diabetes mellitus with hemoglobin A1c goal of less than 7.0% ([facility]) 08/16/2009 Overview: Modified per Diabetes protocol #14. [...] Date Neurogenic ulcer of foot ([facility]) 05/19/2017 0 05/21/2017 HTN, GOAL BELOW 140/80 06/21/2012 6 Overview: Per HTN Protocol #27. HTN, GOAL BELOW 130/80 11/28/2009 2 Overview: Per HTN Taxonomy. DM type 2, not at goal ([facility]) 04/05/2009 Overview: Modified per Diabetes protocol #14. [...] Vital Sign Reading Time Taken Blood Pressure - - Pulse - - Temperature - - Respiratory Rate - - Oxygen Saturation - - Inhaled Oxygen Concentration - - Weight 92 kg (202 lb 12.8 oz) 8 4:13 PM EDT Height 167.6 cm (5' 6") 05/11/2018 4:13 PM EDT Body Mass Index 32.73 05/11/2018 4:13 PM EDT in this encounter Instructions * Patient Instructions - Dinah Mohamud RDN - 05/11/2018 4:48 PM EDT Patient will check glucose levels at least 2 times daily-once in AM and 2 hours after evening meal. Patient will decrease consumption of sugar, sweetened beverages daily. in this encounter Progress Notes * Dinah Mohamud RDN - 05/11/2018 4:25 PM EDT Formatting of this note may be different from the original. DIABETES SELF MANAGEMENT TRAINING/MEDICAL NUTRITION THERAPY Name: [...] labs checked again early next year-last doneMarch 2017. Suggested he also obtain flu shot when [...] external to Marian Mohamud RDN, NUTRITION SERVICES DONOVAN AKHTAR Certified [employer] Administrator in this encounter Plan of Treatment Upcoming Encounters Date Type Specialty Care Team Description 06/07/2018 Office Visit Family Medicine James Maria DO [address] [place] [address] 06/16/2018 Office Visit Podiatry Kylie [...] A1c goal of less than 7.0% (HCC) - Primary OBESITY, BMI 30-34 (SEE ACTU AL BMI) Obesity, unspecified Dyslipidemia, goal LDL below 100 Other and unspecified hyperlipidemia HTN, goal below 140/90 Unspecified essential hypertension in this encounter
--- OUTSIDE RECORDS SUMMARY | 2023-07-31 20:39 | External Medical Summary | Summary of Care ---
Author Name Unknown Organization [place] [address] Phone Care Team Providers Care Consumer Studies Professor Name Role Phone James Maria DO Primary Care Provider Reason for Visit * Reason Comments RECHECK 2 month recheck, pt is concerned he may have a yeast infection Encounter Details Date Type Department Care Team Description 06/07/2018 Office Visit Family [facility] [address] [place] [address] James Maria DO 132 [facility] [place] [address] [phone] DM type 2 nursing care encounter ([facility])*;Risk and functional assessment;Obesity, Class I, BMI 30.0-34.9 (see actual BMI);Type 2 diabetes mellitus with hemoglobin A1c goal of less than 7.0% ([facility]);Dyslipidemia, goal LDL below 100;OBESITY, BMI 30-34 (SEE ACTUAL BMI) Allergies Active Allergy Reactions Severity Noted [...] than 7.0% ([facility]) TAKE ONE TABLET BY MOUTH TWICE [...] 3 8 Active Blood Glucose Monitoring Suppl (Hey, Neighbor!IO) w/Device KITIndications:Ty pe 2 diabetes mellitus with hemoglobin A1c goal of 7.0%-8.0% ([facility]) Use as directed. Recommend check glucose levels at least 2 times daily-once in AM before breakfast and once 2 hours after evening meal. 1 Kit 0 8 Active terbinafine (LAMISIL AT) 1 % cream Apply topically to affected area daily for 21 days. To affected area. 42 g 1 8 06/28/20 18 Active lidocaine 5 % ointment APPLY 2-3 GRAMS TOPICALLY TO AFFECTED AREA 3-4 TIMES PER DAY. 1080 g 1 7 06/07/20 18 Discontinued clotrimazole (LOTRIMIN) 1 % cream Apply topically to affected area 2 times a day for 14 days. To affacted area for two weeks. 60 g 1 8 06/07/20 18 Discontinued as of this encounter Active Problems Problem Noted Date MARYSOL inhibitor intolerance 04/05/2018 HTN, goal below 140/90 01/07/2016 Overview: Per HTN Protocol #27. OBESITY, BMI 30-34 (SEE ACTUAL BMI) 01/01 Overview: Per Obesity Taxonomy DYSLIPIDEMIA, GOAL LDL BELOW 100 009 Overview: Per Lipid Taxonomy. Type 2 diabetes mellitus with hemoglobin A1c goal of less than 7.0% (HCC) 08/16/2009 Overview: Modified per Diabetes protocol #14. [...] of foot ([facility]) 05/19/2017 0 05/21/2017 HTN, GOAL BELOW 140/80 06/21/2012 6 Overview: Per HTN Protocol #27. HTN, GOAL BELOW 130/80 11/28/2009 2 Overview: Per HTN Taxonomy. DM type 2, not at goal ([facility]) 04/05/2009 Overview: Modified per Diabetes protocol #14. [...] Vital Sign Reading Time Taken Blood Pressure 126/70 06/07/2018 1:46 PM EDT Pulse 82 06/07/2018 1:46 PM EDT Temperature 36.8 C (98.3 F) 06/07/2018 1 :46 PM EDT Respiratory Rate 18 06/07/2018 1:46 PM EDT Oxygen Saturation - - Inhaled Oxygen Concentration - - Weight 87.4 kg (192 lb 9.6 oz) 06/07/20 18 1:46 PM EDT Height - - Body Mass Index 31.09 06/07/2018 1:46 PM EDT in this encounter Instructions * Patient Instructions - Rita Grossman LPN - 06/07/2018 1:43 PM EDT Patient Instructions - Fall Prevention (This education [...] pathway between the bedroom and the bathroom [facility] Patient Education Copyright 2008 - 2010 Dinesh [...] 10 times. Repeat this throughout the day. TigerText Patient Education Copyright 2008 - 2010 TigerText except where otherwise noted. Preventing Falls: Moving [...] that mean climbing, even on a stepstool. Nomanapril Patient Education Copyright 2008 - 2010 Dinesh except where otherwise noted. Treating Urinary Incontinence [...] calluses yourself. Talk to your doctor or gluing pressman (a doctor who specializes in foot care) [...] the area doesnt appear to be healing. 6419-2554 [employer], [address] [place] [address], [place] [address]. All rights reserved. This information is not intended as a substitute for professional medical care. Always follow your healthcare professional's instructions. BMI (Body Mass Index) is the number obtained by dividing a person's weight in kilograms by his or her height in meters squared. BMI is used in determining obesity. BMI is not used to determine a person's actual percentage of body fat, but it is a good tool to tree trimmer helper weight in terms of what is healthy and unhealthy. It is used to identify adults at increased risk for developing weight related medical problems. Estimated body mass index is 31.09 kg/(m^2) as calculated from the following: Height as of 05/11/18: 1.676 m (5' 6"). Weight as of this encounter: 87.4 kg (192 lb 9.6 oz). Obesity - BMI 30 kg/m2 to [...] message program is also available. Go to Chikka and seethe message under '[employer]' for more information and enrollment. Patient [...] permitted. Keep Honest, Accurate Food logs: * www.[employer].Grupo A * www.Fabric Engine * If you bite it - write [...] using a pedometer * Make it fun! Diabetes: Keeping Feet Healthy Inspect your feet [...] calluses yourself. Talk to your doctor or gluing pressman (a doctor who specializes in foot care) [...] the area doesnt appear to be healing. 9761-6754 [employer], [address] [place] [address], [place] [id number]. All rights reserved. This information is not intended as a substitute for professional medical care. Always follow your healthcare professional's instructions. in this encounter Progress Notes * James Maria, - 06/07/2018 2:06 PM EDT Formatting of this note may be different from the original. Nursing Notes: Rita Grossman, TONY 06/07/18 1357 Signed The patient has been properly identified by confirmation of name and date of . Chief Complaint Patient presents with RECHECK 2 month recheck, pt is concerned he may have a yeast infection HPI: Selvin Sebastian is a 72 year old male who presents for A rash in his groin and f/u for his BP, DM, and ROS: CONSTITUTIONAL: no weight loss, no fevers, [...] memory loss, no numbness PSYCH: no SI/HI Patient Active Problem List Diagnosis Code ADVANCE [...] below 140/90 I10 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 Past Medical History: Diagnosis Date Allergic rhinitis 2003 Chronic mastoiditis 2004 Dysfunction of eustachian tube 2004 Mixed hearing loss, unilateral 2004 right Otitis media 2004 Sensorineural hearing loss, unilateral 2003 left Past Surgical History: Procedure Laterality Date COLONOSCOPY 11/05 clear - repeat 10 y COLONOSCOPY, DIAGNOSTIC (RECTUM) 12/10/2015 diverticulosis, repeat 10 yrs/COLONOSCOPY FLEXIBLE PROXIMAL DIAGNOSTIC performed by Agustin Saravia [facility] NEC 11/14 L foot deformity MASTOID SURGERY REVISION/APICECTOMY age 18 [facility] SHOULDER ARTHROSCOPY SURGERY 01/07 spur removed Current Outpatient Prescriptions Medication Sig Dispense Refill Blood Glucose Monitoring Suppl (Cirrascale) w/Device KIT Use as directed. Recommend check [...] a day. 1 Vial 5 Glucose Blood (WikibonTOUCH VERIO) STRP Use up to 4 times [...] 100 Strip 0 Blood Glucose Monitoring Suppl (Curazy ULTRA SYSTEM) W/DEVICE KIT Use as directed 4 times a day as needed for Hyperglycemia (high sugar) or Hypoglycemia (low sugar). Use up to four times a day as directed 1 Kit 0 ciprofloxacin-dexamethasone (CIPRODEX) 0.3-0.1 % otic suspension 4 DROPS RIGHT EAR ASNEEDED IF WATER GETS IN EAR 7.5 mL 3 Review of patient's allergies indicates: Allergen Reactions Lisinopril Edema face/lips/tongue PHYSICAL EXAMINATION: BP 126/70 | Pulse 82 | Temp (Src) 98.3 (Tympanic) | Resp 18 | Wt 192 lbs 9.6 oz (87.363kg) | BMI 31.09 kg/m | BSA 2.02 m GENERAL: alert, healthy, no distress, well [...] gait normal, reflexes normal and symmetric MSK: ASSESSMENT/PLAN: 1. Risk and functional assessment - Order: Fall Risk Screening - Order: Urinary Incontinence Assessed 2. DM type 2 nursing care encounter (HCC) 8.2 on last check, getting close to goal Pt displays good awareness of self care and meds Recheck A1C at next visit Continue dietary interventions - Diabetes Foot Exam 3. 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 Type 2 diabetes mellitus with hemoglobin A1c goal of less than 8.0% ([facility]) 5. Dyslipidemia, goal LDL below 100 Under reasonable control, continue Statin therapy and f/u 6. OBESITY, BMI 30-34 (SEE ACTUAL BMI) Has lost 10 lb by cutting out soda 7. Tinea cruris -infection of the penile region and folds with candidal fungus -clotrimazole cream for James Maria DO [address] [address] (This note was completed using the dictation program Fluency Direct. As such, there may be misspellings, word substitutions, or other variations that should not change the essence of the clinical content of this encounter note.If there is need for further clarification, please direct questions to the provider listed above.) Dr. James Maria * James Maria DO - 06/07/2018 2:03 PM EDT Patient counseling on weight management given. * Rita Grossman LPN - 06/07/2018 1:56 PM EDT DM Foot Exam completed today. Provider aware. Rita Grossman LPN DM Foot Exam completed today. Provider aware. Rita Grossman LPN Socks and Shoes Removed for Annual Diabetic Foot Screening RIGHT FOOT: Area of Concern: Possible masseration on plantar surface . RIGHT Dorsalis Pedis Pulse: Palpable RIGHT Posterior Tibial Pulse: Unable to locate RIGHT Monofilament:Patient reports difficulty feeling monofilament at Great toe- plantar surface, Ball of Foot-base of great toe and Ball of Foot-base of 3rd toe LEFT FOOT: Area of Concern Possible masseration on plantar surface. LEFT Dorsalis Pedis Pulse: Palpable LEFT Posterior Tibial Pulse: Unable to locate LEFT Monofilament: Patient reports difficulty feeling monofilament at Great toe- plantar surface, Ball of Foot-base of great toe and Ball of Foot-base of 3rd toe in this encounter Nursing Notes * Rita Grossman LPN - 06/07/2018 1:46 PM EDT Formatting of this note may be different from the original. The patient has been properly identified by confirmation of name and date of . Chief Complaint Patient presents with RECHECK 2 month recheck, pt is concerned he may have a yeast infection in this encounter Plan of Treatment Upcoming Encounters Date Type Specialty Care Team Description 06/16/2018 Office Visit Podiatry Kylie Burroughs, [facility] [address] [place] [address] 12/13/2018 Office Visit [facility] [address] Scheduled Tests Name Priority Associated Diagnoses Order S chedule HEMOGLOBIN A1C Routine DM type 2 nursing care encounter (HCC) Expected: 06/07/2018 (Approximate), Expires: 06/07/2019 BASIC METAB PANEL, BMP Routine DM type 2 nursing care encounter (HCC) Expected: 06/07/2018 (Approximate), Expires: 06/07/2019 Health Maintenance Due Date Last Done Comments DIABETES-EYE EXAM 06/30/2017 06/30/2016, , 03/02/2011 (Done elsewhere), Additional history exists DIABETES-FOOT EXAM 05/13/2018 05/13/2017, 0 05/09/2016, 2013, Additional history exists *DEPRESSION SCREENING, RIGO Jaquez FOR PTS 18 AND OVER 05/15/2018 Influenza [...] Diagnoses Diagnosis DM type 2 nursing care encou nter (HCC) - Primary Type II or unspecified type diabetes mellitus without mention of complication, not stated as uncontrolled Risk and functional assessme nt Screening for unspecified condition OBESITY, BMI 30-34 (SEE ACTU AL BMI) Obesity, unspecified Type 2 diabetes mellitus wit h hemoglobin A1c goal of less than 7.0% (HCC) Dyslipidemia, goal LDL below 100 Other and unspecified hyperlipidemia in this encounter
--- OUTSIDE RECORDS SUMMARY | 2023-07-31 20:40 | External Medical Summary | Summary of Care ---
Author Name Unknown Organization [place] [address] Phone Care Team Providers Care Milk Treater Name Role Phone Lamberto Razo MD Primary Care Provider [phone] Reason for Visit * Reason Comments MEDICATION REFILL Encounter Details Date Type Department Care Team Description 02/09/2018 Refill Family Practice [facility] 132 [facility] [place] [address] Lamberto Razo MD 132 [facility] [place] [address] [phone] Allergies No Known Allergiesas of this encounter [...] TIMES DAILY 100 Each 0 11/13/2016 Active aspirin enteric coated 81 MG TBECIndications:Ty pe 2 diabetes mellitus with diabetic neuropathy, unspecified (HCC) Take 1 Tab by mouth daily. 100 Tab 3 05/13/2017 Active simvastatin (ZOCOR) 80 MG TabletIndications: Dyslipidemia, goal LDL below 100 Take 1 Tab by mouth at bedtime. 90 Tab 3 08/24/2017 Active Sildenafil Citrate (VIAGRA) 50 MG TabletIndications: [...] blood sugars 100 Each 3 08/24/2017 Active MetFORMIN (GLUCOPHAGE) 1000 MG TabletIndications: Type 2 diabetes mellitus with hemoglobin A1c goal of less than 7.0% (HCC) TAKE ONE TABLET BY MOUTH TWICE DAILY WITH MORNING AND EVENING MEALS 180 Tab 3 08/24/2017 Active Glucose Blood (ONETOUCH VERIO) STRP Use up to 4 times a day E11.9 300 Strip 3 08/24/2017 Active lidocaine 5 % ointment APPLY 2-3 GRAMS TOPICALLY TO AFFECTED AREA 3-4 TIMES PER DAY. 1080 g 1 09/08/2017 Active Lisinopril-Hydroch lorothiazide 10-12.5 MG per tabletIndications: Essential hypertension with goal blood pressure less than 140/90 Take 1 Tab by mouth daily. 90 Tab 3 09/10/2017 Active insulin isophane human (NOVOLIN N RELION) [...] 7.0% ([facility]) Inject 5 Units under the skin three times a day with meals. 5 units with Breakfast, lunch, and dinner 5 Pre-filled Pen Syringe Dosing Unit 3 01/11/2018 Active RELION INSULIN SYRINGE 30G X 5/16" 0.3 ML MISCIndications:Ty pe 2 diabetes mellitus with hemoglobin A1c goal of less than 7.0% ([facility]) For insulin dosing 4 times daily 1 Box Dosing Unit 3 01/11/2018 Active tamsulosin (FLOMAX) 0.4 MG Capsule Take [...] 7.0% ([facility]) 08/16/2009 Overview: Modified per Diabetes protocol #14. ICD-10 update of inactive term ADVANCE DIRECTIVE INFORMATION 07/15/2006 Overview: Pt took booklet. AC SEROUS OTITIS MEDIA 07/15/2006 Mixed hearing loss, unilateral Overview: right Sensorineural hearing loss, unilateral Overview: left Otitis media Chronic mastoiditis Allergic rhinitis Dysfunction of eustachian tube as of this encounter Resolved Problems Problem Noted Date Resolved Date Neurogenic ulcer of foot ([facility]) 05/19/2017 0 05/21/2017 HTN, GOAL BELOW 140/80 06/21/2012 6 Overview: Per HTN Protocol #27. HTN, GOAL BELOW 130/80 11/28/2009 2 Overview: Per HTN Taxonomy. DM type 2, not at goal ([facility]) 04/05/2009 Overview: Modified per Diabetes protocol #14. [...] encounter Miscellaneous Notes * Telephone Encounter - Lamberto Razo MD - 02/10/2018 8:21 AM EDT Signed Prescriptions: Disp Refills tamsulosin (FLOMAX) 0.4 MG Capsule 90 Cap 3 Sig: Take 1 Cap by mouth daily. Authorizing Provider: LAMBERTO RAZO * Telephone Encounter - Alessandra Bolaños OSA - 02/09/2018 9:59 AM EDT Formatting of this note may be different from the original. Pending Prescriptions: Disp Refills tamsulosin (FLOMAX) 0.4 MG Capsule 90 Cap 3 Sig: Take 1 Cap by mouth daily. Last Office Visit: 01/11/2018 Next Office Visit: No Future Appointments If no future appointments scheduled, and last appointment is greater than a year ago, please schedule patient for a follow-up appointment Last date the medication was ordered: 08/24/2017 Patient Phone Numbers Labs: Lab Results Component Value Date/Time CREAT 1.1 01/11/2018 11:20 AM POTASSIUM 4.4 01/11/2018 11:20 AM TSH 2.18 11/01/2008 10:02 AM LDLCALC 85 06/04/2016 01:48 PM LDLDIRECT 53 01/11/2018 11:20 AM ALT 8 (L) 01/11/2018 11:20 AM HGBA1C 8.2 (H) 01/11/2018 11:20 AM in this encounter Plan of Treatment Health Maintenance Due Date Last Done Comments *ADVANCE DIRECTIVE NOT ON FILE 11/19/2014 DIABETES-EYE EXAM 06/30/2017 06/30/2016, , 03/02/2011 (Done [...] Implants Not on fileas of this encounter Insurance Payer Benefit Plan / Group Subscriber ID Type Phone Address [facility] CLASSIC COMPLETE RX [id number] Medicare [phone] [place] [address] as of this encounter
--- OUTSIDE RECORDS SUMMARY | 2023-07-31 20:40 | External Medical Summary ---
Author Name Unknown Address [facility] [address] [place] [id number] Phone Organization K01:[place] [address] [place] [id number] Laboratory Report Ordering Provider Test Date Status PRINCE JOSHUA 01/11/2018 11:20:00 Final Observation Date Value Abnormality Reference Status Vitamin B12 01/11/2018 20:00 203 Below low normal 232- 1245 Final Performing Location [address] [address]
--- OUTSIDE RECORDS SUMMARY | 2023-07-31 20:40 | External Medical Summary | Summary of Care ---
Author Name Unknown Organization [place] [address] Phone Care Team Providers Care Scheduling Agent Name Role Phone Lamberto Razo MD Primary Care Provider [phone] Reason for Visit * Reason Comments Medical Records Request Encounter Details Date Type Department Care Team Description 01/05/2018 Telephone Family Practice [facility] [address] [place] [address] Lamberto Razo MD 132 [facility] [place] [address] [phone] Medical Records Request Allergies No Known Allergiesas of this encounter [...] TIMES DAILY 100 Each 0 11/13/2016 Active RELION INSULIN SYRINGE 30G X 5/16" 0.3 ML MISC 02/04/2017 Active aspirin enteric coated 81 MG TBECIndications:Ty [...] EVENING MEALS 180 Tab 3 08/24/2017 Active tamsulosin (FLOMAX) 0.4 MG Capsule Take 1 Cap by mouth daily. 90 Cap 3 08/24/2017 Active Glucose Blood (ONETOUCH VERIO) [...] mouth daily. 90 Tab 3 09/10/2017 Active NOVOLOG FLEXPEN 100 UNIT/ML SOPNIndications:Ty pe 2 diabetes mellitus with hemoglobin A1c goal of less than 7.0% (HCC) Inject 5 Units under the skin three times a day with meals. 5 units with Breakfast, lunch, and dinner 1 Pre-filled Pen Syringe Dosing Unit x 5 09/10/2017 Active insulin glargine (LANTUS SOLOSTAR) 100 UNIT/ML SOPNIndications:Ty pe 2 diabetes mellitus with hemoglobin A1c goal of less than 7.0% (HCC) 35 units at bedtime. 5 Pre-filled Pen Syringe Dosing Unit 5 09/10/2017 Active insulin isophane human (NOVOLIN N RELION) 100 UNIT/ML injection Inject 5 Units under the skin 2 times a day. 1 Vial 5 10/09/2017 Active as of this encounter Active Problems Problem Noted Date HTN, goal below 140/90 01/07/2016 Overview: Per HTN Protocol #27. OBESITY, BMI 30-34 (SEE ACTUAL BMI) 01/01 Overview: Per Obesity Taxonomy DYSLIPIDEMIA, GOAL LDL BELOW 100 009 Overview: Per Lipid Taxonomy. Type 2 diabetes mellitus with hemoglobin A1c goal of less than 7.0% ([facility]) 08/16/2009 Overview: Modified per Diabetes [...] Date Resolved Date Neurogenic ulcer of foot ([facility]) 05/19/2017 0 05/21/2017 HTN, GOAL BELOW 140/80 06/21/2012 6 Overview: Per HTN Protocol #27. HTN, GOAL BELOW 130/80 11/28/2009 2 Overview: Per HTN Taxonomy. DM type 2, not at goal ([facility]) 04/05/2009 Overview: Modified per Diabetes [...] Telephone Encounter - Maury Vogt OSA - 01/05/2018 11:35 AM [facility] Intellectual Disabilities/ Early Intervention- Drug and Alcohol is requesting records from 12/31/16 to present. Forwarded to [facility] in this encounter Plan of Treatment Upcoming Encounters Date Type Specialty Care Team Description 01/11/2018 Office Visit Family Practice Lamberto Razo MD [address] [place] [id number] Health Maintenance Due Date Last Done Comments Yearly B-12 1945 *ADVANCE DIRECTIVE NOT ON FILE 11/19/2014 DIABETES-URINE MICROALBUMIN EVERY 12 MONTHS 12/24/2016 12/24/2015, 02/02/2014, 01/27/2013, Additional history exists DIABETES-EYE EXAM 06/30/2017 06/30/2016, , 03/02/2011 (Done elsewhere), Additional history exists DIABETES-HGBA1C EVERY 6 MONTHS 03/10/2018 1 11/10/2016, 05/13/2017, 02/06/2017, Additional history exists DIABETES-FOOT EXAM 05/13/2018 05/13/2017, 0 05/09/2016, 2013, Additional history exists DIABETES-LDL EVERY 12 MONTHS 09/10/201807/2017, 05/13/2017, 06/04/2016, Additional history exists DTaP,Tdap,and Td Vaccines (2 - Td) 10/21/20212010, 11/09/2003 PNEUMOCOCCAL ADULT 65 YRS AND OVER Completed 2015, 07/23/2011 Influenza Vaccine (FLU shot) Completed 07/2017, 09/16/2016, 11/22/2015, Additional history exists as of this encounter Implants Not on fileas of this encounter Insurance Payer Benefit Plan / Group Subscriber ID Type Phone Address [facility] CLASSIC COMPLETE RX [id number] Medicare [phone] [place] [address] as of this encounter
--- OUTSIDE RECORDS SUMMARY | 2023-07-31 20:40 | External Medical Summary ---
Author Name Unknown Address [facility] [place] [address] Phone Organization K01:[facility] [address] [place] [id number] Laboratory Report Ordering Provider Test Date Status PRINCE JOSHUA 01/11/2018 11:19:00 Final Observation Date Value Abnormality Reference Status Albumin, Urine 01/11/2018 18:29 <1.20 Final Creatinine [Moles/volume] in Urine 01/11/2018 18:29 112 Final Microalbumin / Creatinine Ratio 01/11/2018 18:29 <11 <30 Final Performing Location [facility] [address] [facility] [address]
--- OUTSIDE RECORDS SUMMARY | 2023-07-31 20:40 | External Medical Summary | Summary of Care ---
Author Name Unknown Organization [place] [address] Phone Care Team Providers Care Picker / Packer Name Role Phone Lamberto Razo MD Primary Care Provider [phone] Reason for Visit * Reason Comments FOLLOW UP Encounter Details Date Type Department Care Team Description 01/11/2018 Office Visit Family Practice [facility] [address] [place] [address] Lamberto Razo MD 132 [facility] [place] [address] [phone] Type 2 diabetes mellitus with hemoglobin A1c goal of less than 7.0% ([facility])*;HTN, goal below 140/90;OBESITY, BMI 30-34 (SEE ACTUAL BMI);Dyslipidemia, goal LDL below 100;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 100 Tab 3 7 Active simvastatin (ZOCOR) 80 MG TabletIndications :Dyslipidemia, goal LDL below 100 Take 1 Tab by mouth at bedtime. 90 Tab 3 7 Active Sildenafil Citrate (VIAGRA) 50 MG [...] blood sugars 100 Each 3 7 Active MetFORMIN (GLUCOPHAGE) 1000 MG TabletIndications :Type 2 diabetes mellitus with hemoglobin A1c goal of less than 7.0% (HCC) TAKE ONE TABLET BY MOUTH TWICE DAILY WITH MORNING AND EVENING MEALS 180 Tab 3 7 Active tamsulosin (FLOMAX) 0.4 MG Capsule Take 1 Cap by mouth daily. 90 Cap 3 7 Active Glucose Blood (ONETOUCH VERIO) STRP Use up to 4 times a day E11.9 300 Strip 3 7 Active lidocaine 5 % ointment APPLY 2-3 GRAMS TOPICALLY TO AFFECTED AREA 3-4 TIMES PER DAY. 1080 g 1 7 Active Lisinopril-Hydroc hlorothiazide 10-12.5 MG per tabletIndications :Essential hypertension with goal blood pressure less than 140/90 Take 1 Tab by mouth daily. 90 Tab 3 7 Active insulin isophane human (NOVOLIN [...] 1 Box Dosing Unit 3 8 Active RELION INSULIN SYRINGE 30G X 5/16" 0.3 ML MISC 7 01/12/20 18 Discontinued NOVOLOG FLEXPEN 100 UNIT/ML SOPNIndications:T [...] Dosing Unit 5 7 01/12/20 18 Discontinued as of this encounter Active [...] Resolved Date Neurogenic ulcer of foot ([facility]) 05/19/2017 0 05/21/2017 HTN, GOAL [...] Vital Sign Reading Time Taken Blood Pressure 126/76 01/11/2018 10:48 AM EDT Pulse 82 01/11/2018 10:16 AM EDT Temperature 36.9 C (98.4 F) 01/11/2018 1 0:16 AM EDT Respiratory Rate 16 01/11/2018 10:1 6 AM EDT Oxygen Saturation - - Inhaled Oxygen Concentration - - Weight 97.1 kg (214 lb) 01/11/2018 10:1 6 AM EDT Height - - Body Mass Index 34.54 01/11/2018 10:16 AM EDT in this encounter Instructions * Patient Instructions - Lamberto Razo MD - 01/11/2018 10:53 AM EDT Formatting of this note may be different from the original. Personal [facility] Diabetic Report Card For: Selvin Sebastian 01/11/2018 Below is a summary of your relevant Diabetes Values that we feel could help you manage your health better. HEMOGLOBIN A1C Your most recent Hemoglobin A1c values are: HEMOGLOBIN, A1C(%) Stephie Dt/ Resulted Value Status 09/10/17 11:28A 09/10/17 9.4* FINAL 05/13/17 11:12A 05/13/17 7.3* FINAL 02/06/17 3:18P 02/07/17 11.2* FINAL The above values should be LESS than 7 (< 7). If these are more than 7 then you have a higher chance of having eye, kidney, and heart problems in the future. CHOLESTEROL Your most recent LDL cholesterol (bad cholesterol) results are: LDL (DIRECT MEASURE)(mg/dL) Stephie Dt/Tm Resulted Value Status 09/10/17 11:28A 09/10/17 54 FINAL 05/13/17 11:12A 05/13/17 63 FINAL LDL (CALCULATED)(mg/dL) Stephie Dt/Tm Resulted Value Status 06/04/16 1:48P 06/04/16 85 FINAL The above values should be LESS than 100 (<100). If these are consistently higher than 100, thenyour chance for heart attack and stroke increases yearly. BLOOD PRESSURE Your most recent Blood Pressure readings are: BP Readings from Last 3 Encounters: 01/11/18 126/76 09/10/17 116/68 05/13/17 114/64 The above values should be LESS than 130/80. Contact me if your readings at home are consistently higher than this. URINE PROTEIN Your most recent Urine Microalbumin tests (Urine Protein test) are: MICROALBUMIN RATIO(mg/g creat) Stephie Dt/Tm Resulted Value Status 12/24/15 2:23P 12/24/15 <21 FINAL The above values should be LESS than 30. If this value is consistenly more than 21, your chances for kidney problems increases yearly. You may go to [email or web address] and register to receive all of of the above information electronically via the internet. Lamberto Razo MD [facility] in this encounter Progress Notes * Lamberto Razo MD - 01/11/2018 1:04 PM EDT Subjective: Patient here for recheck he is here with his Blood pressure elevated on 1st appearance Agreeable to blood tests and B12 level. Reviewed his medications He requests written prescriptions for his insulin-wants to shop around different pharmacies weight has gone up Objective: Blood pressure checked by me Carotids 2+ bilaterally Lungs clear Cardiac regular rate rhythm Extremities with trace edema Assessment: E11.9 Type 2 diabetes mellitus with hemoglobin a1c goal of less than 7.0% (formerly [facility]) (primary encounter diagnosis) Plan: Hemoglobin a1c Ldl (direct measure) Basic metab panel, bmp Alt Albumin / creatinine ratio, urine Vitamin b12 Hemoglobin a1c Ldl (direct measure) Basic metab panel, bmp Alt Vitamin b12 Insulin glargine 100 unit/ml subq sopn Si units at bedtime. Insulin glargine 100 unit/ml subq soln Sig:Inject 35 units under the skin at bedtime. 35 units Novolog flexpen 100 unit/ml subq sopn Sig:Inject 5 units under the skin three times a day with meals. 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 in this encounter Nursing Notes * Abbie Simmons LPN - 01/11/2018 10:11 AM EDT Here for 4 month f/u apt, has no current issues but did mis 2 different apt, in this encounter Plan of Treatment Pending Results Name Priority Associated Diagnoses Date/Ti me HEMOGLOBIN A1C Routine Type 2 diabetes mellitus with hemoglobin A1c goal of less than 7.0% (HCC) 01/11/2018 11:20 AM EDT LDL (DIRECT MEASURE) Routine Type 2 diabetes mellitus with hemoglobin A1c goal of less than 7.0% (HCC) 01/11/2018 11:20 AM EDT BASIC METAB PANEL, BMP Routine Type 2 diabetes mellitus with hemoglobin A1c goal of less than 7.0% (HCC) 01/11/2018 11:20 AM EDT ALT Routine Type 2 diabetes mellitus with hemoglobin A1c goal of less than 7.0% (HCC) 01/11/2018 11:20 AM EDT ALBUMIN / CREATININE RATIO, URINE Routine Type 2 diabetes mellitus with hemoglobin A1c goal of less than 7.0% (HCC) 01/11/2018 11:19 AM EDT VITAMIN B12 Routine Other detention (current) drug therapy Type 2 diabetes mellitus with hemoglobin A1c goal of less than 7.0% (HCC) 01/11/2018 11:20 AM EDT Scheduled Tests Name Priority Associated Diagnoses Order S chedule HEMOGLOBIN A1C Routine Type 2 diabetes mellitus with hemoglobin A1c goal of less than 7.0% (HCC) Expected: 01/11/2018 (Approximate), Expires: 04/13/2018 LDL (DIRECT MEASURE) Routine Type 2 diabetes mellitus with hemoglobin A1c goal of less than 7.0% (HCC) Expected: 01/11/2018 (Approximate), Expires: 04/13/2018 BASIC METAB PANEL, BMP Routine Type 2 diabetes mellitus with hemoglobin A1c goal of less than 7.0% (HCC) Expected: 01/11/2018 (Approximate), Expires: 04/13/2018 ALT Routine Type 2 diabetes mellitus with hemoglobin A1c goal of less than 7.0% (HCC) Expected: 01/11/2018 (Approximate), Expires: 04/13/2018 VITAMIN B12 Routine Other detention (current) drug therapy Type 2 diabetes mellitus with hemoglobin A1c goal of less than 7.0% (HCC) Expected: 01/11/2018, Expires: 01/11/2019 Health Maintenance Due Date Last Done Comments [...] of less than 7.0% (HCC) - Primary HTN, goal below 140/90 Unspecified essential hypertension OBESITY, BMI 30-34 (SEE ACTU AL BMI) Obesity, unspecified Dyslipidemia, goal LDL below 100 Other and unspecified hyperlipidemia 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
--- OUTSIDE RECORDS SUMMARY | 2023-07-31 20:40 | External Medical Summary | Summary of Care ---
Author Name Unknown Organization [place] [address] Phone Care Team Providers Care Kier Operator Name Role Phone Lamberto Razo MD Primary Care Provider [phone] Reason for Visit * Reason Comments ORDER REQUEST Encounter Details Date Type Department Care Team Description 10/06/2017 Telephone Family Practice [facility] [address] [place] [address] Lamberto Razo MD 132 [facility] [place] [address] [phone] ORDER REQUEST Allergies No Known Allergiesas of this encounter [...] TIMES DAILY 100 Each 0 7 Active RELION INSULIN SYRINGE 30G X 5/16" 0.3 ML MISC 7 Active aspirin enteric coated 81 MG [...] mouth daily. 90 Tab 3 7 Active NOVOLOG FLEXPEN 100 UNIT/ML SOPNIndications:T ype 2 diabetes mellitus with hemoglobin A1c goal of less than 7.0% (HCC) Inject 5 Units under the skin three times a day with meals. 5 units with Breakfast, lunch, and dinner 1 Pre-filled Pen Syringe Dosing Unit x 5 7 Active insulin glargine (LANTUS SOLOSTAR) 100 UNIT/ML SOPNIndications:T ype 2 diabetes mellitus with hemoglobin A1c goal of less than 7.0% (HCC) 35 units at bedtime. 5 Pre-filled Pen Syringe Dosing Unit 5 7 Active insulin isophane human (NOVOLIN N [...] encounter Miscellaneous Notes * Telephone Encounter - Bhakti Baron LPN - 10/06/2017 11:53 AM CECI Mohamud from nutrition services at [facility] clinic is seeing this pt today. She reports the pt has been unable to afford his insulin and questions if the [facility] relion brand could be ordered for him as it is inexpensive. I have pended the relion novolin but unable to find relion lantus in this encounter Plan of Treatment Upcoming Encounters Date Type Specialty Care Team Description 11/19/2017 Office Visit Podiatry Kylie Burroughs, REMEDIOS [address] [place] [address] 11/24/2017 Nutrition Services Nutrition Services Dinah Mohamud, ALFIE [address] [facility] [place] [address] 01/11/2018 Office Visit Family Practice Lamberto Razo MD [address] [place] [address] [phone] Health Maintenance Due Date Last Done Comments [...] MONTHS 09/10/201807/2017, 05/13/2017, 06/04/2016, Additional history exists TETANUS EVERY 10 YEARS-TDAP (BOOSTRIX OR ADACEL) SUGGESTED IF NOT RECEIVED IN THE PAST. 10/21/2021 10/21/2011, 11/09/2003 COLONOSCOPY-EVERY 10 YRS AGE S 50-75 12/10/2025 12/10/2015, 12/10/2015, 11/10/2003 (Done elsewhere) PNEUMOCOCCAL ADULT 65 YRS AND OVER Completed 2015, 07/23/2011 Influenza Vaccine (FLU shot) Completed 07/2017, 09/16/2016, 11/22/2015, Additional history exists as of this encounter Implants Not on fileas of this encounter Insurance Payer Benefit Plan / Group Subscriber ID Type Phone Address [facility] [id number] Medicare [phone] [place] [address] as of this encounter
--- OUTSIDE RECORDS SUMMARY | 2023-07-31 20:40 | External Medical Summary | Summary of Care ---
Author Name Unknown Organization [place] [address] Phone Care Team Providers Care Rn Bsn Name Role Phone Lamberto Razo MD Primary Care Provider [phone] Reason for Visit * Reason Comments ADVICE breathing difficulty Encounter Details Date Type Department Care Team Description 03/26/[address] [facility] 132 [facility] [place] [address] Lamberto Razo MD 132 [facility] [place] [address] [phone] ADVICE (breathing difficulty) Allergies No Known Allergiesas of this encounter [...] Miscellaneous Notes * Telephone Encounter - Vania Cabrera DO - 03/26/2018 9:36 AM EDT Agree w/ER * Telephone Encounter - Alexandria Damon LPN - 03/26/2018 9:25 AM EDT Pt calling states that pt is having some difficulty breathing d/t his tongue being swollen. Advised pt needs to go to ED for eval if it is blocking his breathing. Farhana states that she will check with him and see if it still swollen. * Telephone Encounter - Anais Schmitz OSA - 03/26/2018 9:23 AM EDT Reason for patient's call: Breathing difficulty Caller was transferred to [place] at the dedicated phone nurse line. in this encounter Plan of Treatment Upcoming Encounters Date Type Specialty Care Team Description 05/11/2018 Nutrition Services Nutrition Services Dinah Mohamud, FELIPEN [address] [place] [address] 06/16/2018 Office Visit Podiatry Manjeet, Kylie S, DPM [address] [place] [id number] Health Maintenance Due Date Last Done Comments [...]
--- OUTSIDE RECORDS SUMMARY | 2023-07-31 20:40 | External Medical Summary | Summary of Care ---
Author Name Unknown Organization [place] [address] Phone Care Team Providers Care Tree Trimmer Name Role Phone Lamberto Razo MD Primary Care Provider [phone] Reason for Visit * Reason Comments FOLLOW UP Encounter Details Date Type Department Care Team Description 03/11/2018 Office Visit Podiatry [facility] 132 [facility] [place] [address] Kylie Burroughs, DPM [address] [facility] [address] Onychomycosis*;Type 2 diabetes mellitus with hemoglobin A1c goal of less than 7.0% ([facility]);DM type 2 with diabetic peripheral neuropathy ([facility]) Allergies No Known Allergiesas of this encounter [...] of less than 7.0% ([facility]) TAKE ONE TABLET BY MOUTH TWICE [...] of less than 7.0% ([facility]) 08/16/2009 Overview: Modified per Diabetes protocol #14. ICD-10 update of inactive term ADVANCE DIRECTIVE INFORMATION 07/15/2006 Overview: Pt took booklet. AC SEROUS OTITIS MEDIA 07/15/2006 Mixed hearing loss, unilateral Overview: right Sensorineural hearing loss, unilateral Overview: left Otitis media Chronic mastoiditis Allergic rhinitis Dysfunction of eustachian tube as of this encounter Resolved Problems Problem Noted Date Resolved Date Neurogenic ulcer of foot ([facility]) 05/19/2017 0 05/21/2017 HTN, GOAL BELOW 140/80 06/21/2012 6 Overview: Per HTN Protocol #27. HTN, GOAL BELOW 130/80 11/28/2009 2 Overview: Per HTN Taxonomy. DM type 2, not at goal ([facility]) 04/05/2009 Overview: Modified per Diabetes protocol [...] Progress Notes * Kylie Burroughs DPM - 03/11/2018 10:47 AM EDT Formatting of this note may be different from the original. Podiatry Established Note [facility] [place] Name: Selvin Sebastian : 1945 Date: 03/11/2018 REASON FOR VISIT: diabetic foot care, requesting new shoes SUBJECTIVE: This patient is a 72 year old male who presents today accompanied by a caregiver. Thepatient complains of elongated, thickened, discolored toenails. The patient states that the nails are difficult to reach and to trim. The patient notes pain to the nails and surrounding skin with enclosed shoe gear and with ambulation. He does have type II diabetes mellitus. He has been checking his BS. It can range from 200 to low 100's. He is requesting new diabetic shoes. He thinks his currentshoes are over one year old. Past Medical History: Diagnosis Date Allergic rhinitis 2003 Chronic mastoiditis 2003 Dysfunction of eustachian tube 2003 Mixed hearing loss, unilateral 2003 right Otitis media 2004 Sensorineural hearing loss, unilateral 2004 left ALLERGIES: Review of patient's allergies indicates: No Known Allergies FOCUSED PODIATRIC EXAM: Vascular: Pedal pulses palpable including dorsalis pedis and posterior tibial artery at 2/4 bilaterally. Capillary refill time is within normal limits to all toes. Non-pittingedema noted to the bilaterallower legs. No warmth. Absence of pedal hair growth noted. Neurologic: Sensation (light touch) intact to the bilateral lower extremities. Patient is able to detect 5/10left and 6/10 right with 5.07 Galien Boaz Monofilament. Vibratory sensation is absent to thebilateral foot and ankle. Patient is unable to detect sharp/dull discrimination. No hypersensitivity. No weakness. Negative Tinel's sign to the posterior tibial nerves. Musculoskeletal: Manual muscle strength is 5/5 to all compartments of the bilateral lower extremities. There is mild pain reported with palpation of toes 1-5 bilaterally. This includes the level of the nail. There is a mild hallux abductovalgus deformity to the left foot. Dermatological: Skin temperature is within normal limits. [...] used to remove all incurvating edges. A fingernail sculptor wasused to trim nail to appropriate length. An electrical bur was used in a side to side motion to reduce nail thickness, hypertrophic growth, and to smooth all edges. Patient tolerated well. They noted improvement following procedure. A new prescription for diabetic shoes was provided. Kylie Burroughs DPM in this encounter Nursing Notes * Cristela Steele LPN - 03/11/2018 10:43 AM EDT Pt here for routine nail care. He is diabetic. He did not check his BS today in this encounter Plan of Treatment Upcoming Encounters Date Type Specialty Care Team Description 05/11/2018 Nutrition Services Nutrition Services Dinah Mohamud, FELIPEN [address] [place] [facility] [place] [address] 06/16/2018 Office Visit Podiatry Kylie Burroughs DPM 310 [facility] [address] [place] [address] Scheduled Tests Name Priority Associated Diagnoses Order S chedule DEBRIDEMENT OF NAILS 6 OR MORE Routine Onychomycosis Type 2 diabetes mellitus with hemoglobin A1c goal of less than 7.0% (HCC) DM type 2 with diabetic peripheral neuropathy (HCC) Ordered: 03/11/2018 Health Maintenance Due Date Last Done Comments [...]
--- OUTSIDE RECORDS SUMMARY | 2023-07-31 20:40 | External Medical Summary ---
Author Name Unknown Address [address] [facility] [place] [address] Phone Organization K0G:RADHA Vogel [address] [facility] [place] [address] Laboratory Report Ordering Provider Test Date Status PRINCE JOSHUA 01/11/2018 11:20:00 Final Observation Date Value Abnormality Reference Status ALT (Alanine aminotransferase) 01/11/2018 13:48 8 Below low normal 10-50 Fi nal Performing Location [facility] Erica Vogel [address] [facility] [address]
--- OUTSIDE RECORDS SUMMARY | 2023-07-31 20:40 | External Medical Summary | Summary of Care ---
Author Name Unknown Organization [place] [address] Phone Care Team Providers Care Assembly Worker Name Role Phone Lamberto Razo MD Primary Care Provider [phone] Reason for Visit * Reason Comments Previsit Planning Encounter Details Date Type Department Care Team Description 01/11/2018 Telephone Family Practice [facility] 132 [facility] [place] [address] Lamberto Razo MD 132 [facility] [place] [address] [phone] Previsit Planning Allergies No Known Allergiesas of this encounter [...] Date Resolved Date Neurogenic ulcer of foot ([facility]) 05/19/2017 0 05/21/2017 HTN, GOAL BELOW 140/80 06/21/2012 6 Overview: Per HTN Protocol #27. HTN, GOAL BELOW 130/80 11/28/2009 2 Overview: Per HTN Taxonomy. DM type 2, not at goal ([facility]) 04/05/2009 Overview: Modified per Diabetes [...] encounter Miscellaneous Notes * Telephone Encounter - Mumtaz Denise, MED ASSIST - 01/11/2018 12:00 PM EDT Formatting of this note may be different from the original. Patient contacted for Care Gaps Comprehensive Care Outreach. Last Office Visit: 01/11/2018 Outreach action taken: Contacted: [place] [employer] Message Sent Health Maintenance Due Topic Date Due Yearly B-08/04/1945 *ADVANCE DIRECTIVE NOT ON FILE 11/19/2014 DIABETES-URINE MICROALBUMIN EVERY 12 MONTHS 12/24/2016 DIABETES-EYE EXAM 06/30/2017 in this encounter Plan of Treatment Health Maintenance Due Date Last Done Comments Yearly B-08/04/1945 *ADVANCE DIRECTIVE NOT ON FILE 11/19/2014 DIABETES-URINE [...] / Group Subscriber ID Type Phone Address [facility] CLASSIC COMPLETE RX [id number] Medicare [phone] [facility] [place] [phone] as of this encounter
--- OUTSIDE RECORDS SUMMARY | 2023-07-31 20:40 | External Medical Summary ---
Author Name Unknown Address [facility] [address] [place] [id number] Phone Organization K01:[facility] [address] [place] [id number] Laboratory Report Ordering Provider Test Date Status PRINCE JOSHUA 01/11/2018 11:20:00 Final Observation Date Value Abnormality Reference Status HbA1C 01/11/2018 19:04 8.2 Above high normal 4.0-6 .4 Final Performing Location [facility] [address] [facility] [address]
--- OUTSIDE RECORDS SUMMARY | 2023-07-31 20:40 | External Medical Summary ---
Author Name Unknown Address [address] [id number] Phone Organization K01:[facility] [address] [facility] [address] Laboratory Report Ordering Provider Test Date Status PRINCE JOSHUA 01/11/2018 11:20:00 Final Observation Date Value Abnormality Reference Status LDL, (direct) 01/11/2018 19:07 53 0-129 Final Performing Location [facility] [address] [facility] [address]
--- OUTSIDE RECORDS SUMMARY | 2023-07-31 20:41 | External Medical Summary ---
Author Name Unknown Address [address] [place] [address] Phone Organization K09:[facility] e [address] [place] [address] Laboratory Report Ordering Provider Test Date Status CHRIS CORREA 02/06/2017 15:18:00 Final Observation Date Value Abnormality Reference Status Albumin 02/06/2017 16:58 3.8 3.8-5.0 Fin al Performing Location [facility] [place] [address] [place] [address]
--- OUTSIDE RECORDS SUMMARY | 2023-07-31 20:41 | External Medical Summary ---
Author Name Unknown Address [address] [place] [address] Phone Organization K09:[facility] [address] [place] [address] Laboratory Report Ordering Provider Test Date Status GRICELDA CORREAW 02/06/2017 15:18:00 Final Observation Date Value Abnormality Reference Status ESR 02/06/2017 16:05 54 Above high normal 0-15 Final Performing Location [facility] [address] [place] [address]
--- OUTSIDE RECORDS SUMMARY | 2023-07-31 20:41 | External Medical Summary ---
Author Name Unknown Address [facility] [place] [place] [address] Phone Organization K01:[facility] [address] [place] [id number] Laboratory Report Ordering Provider Test Date Status PRINCE JOSHUA 05/13/2017 11:12:00 Final Observation Date Value Abnormality Reference Status HbA1C 05/13/2017 19:08 7.3 Above high normal 4.0-6 .4 Final Performing Location [place] [address] [address] [facility] [address]
--- OUTSIDE RECORDS SUMMARY | 2023-07-31 20:41 | External Medical Summary ---
Author Name Unknown Address [facility] [place] [address] Phone Organization K01:[place] [address] [place] [id number] Laboratory Report Ordering Provider Test Date Status GRICELDA CORREAW 02/06/2017 15:18:00 Final Observation Date Value Abnormality Reference Status HbA1C 02/07/2017 07:39 11.2 Above high normal 4.0-6 .4 Final Performing Location [place] [address] [address] [facility] [address]
--- OUTSIDE RECORDS SUMMARY | 2023-07-31 20:41 | External Medical Summary | Summary of Care ---
Author Name Unknown Organization [place] [address] Phone Care Team Providers Care Engineering Supplies Sales Name Role Phone Lamberto Razo MD Primary Care Provider [phone] Reason for Visit * Reason Comments MEDICATION REFILL Encounter Details Date Type Department Care Team Description 09/10/2017 Refill Family Practice [facility] 132 [facility] [place] [address] Lamberto Razo MD 132 [facility] [place] [address] [phone] Essential hypertension with goal blood pressure less than 140/90 Allergies No Known Allergiesas of this encounter [...] A1c goal of less than 7.0% ([facility]) TAKE ONE TABLET BY MOUTH TWICE DAILY [...] mouth daily. 90 Tab 3 7 Active levofloxacin (LEVAQUIN) 500 MG Tablet Take 1 Tab by mouth daily. Take one tablet by mouth once daily 90 Tab 3 7 09/10/20 17 Discontinued Cephalexin 500 MG Tablet 7 09/10/20 17 Discontinued Lisinopril-Hydroc hlorothiazide 10-12.5 MG per tabletIndications :Essential hypertension with goal blood pressure less than 140/90 Take 1 Tab by mouth daily. 90 Tab 3 7 09/10/20 17 Discontinued NOVOLOG FLEXPEN 100 UNIT/ML SOPN Inject 5 Units under the skin three times a day with meals. 5 units with Breakfast, lunch, and dinner 1 Pre-filled Pen Syringe Dosing Unit x 5 7 09/10/20 17 Discontinued insulin glargine (LANTUS SOLOSTAR) 100 UNIT/ML SOPNIndications:T ype 2 diabetes mellitus with hemoglobin A1c goal of less than 7.0% ([facility]) 35 units at bedtime. 5 Pre-filled Pen Syringe Dosing Unit 5 7 09/10/20 17 Discontinued as of this encounter Active Problems Problem Noted Date HTN, goal below 140/90 01/07/2016 Overview: Per HTN Protocol #27. OBESITY, BMI 30-34 (SEE ACTUAL BMI) 01/01 Overview: Per Obesity Taxonomy DYSLIPIDEMIA, GOAL LDL BELOW 100 009 Overview: Per Lipid Taxonomy. Type 2 diabetes mellitus with hemoglobin A1c goal of less than 7.0% ([facility]) 08/16/2009 Overview: Modified per Diabetes protocol #14. ICD-10 update of inactive term ADVANCE DIRECTIVE INFORMATION 07/15/2006 Overview: Pt took booklet. AC SEROUS OTITIS MEDIA 07/15/2006 Mixed hearing loss, unilateral Overview: right Sensorineural hearing loss, unilateral Overview: left Otitis media Chronic mastoiditis Allergic rhinitis Dysfunction of eustachian tube as of this encounter Resolved Problems Problem Noted Date Resolved Date Neurogenic ulcer of foot ([facility]) 05/19/2017 0 05/21/2017 HTN, GOAL BELOW 140/80 06/21/2012 6 Overview: Per HTN Protocol #27. HTN, GOAL BELOW 130/80 11/28/2009 2 Overview: Per HTN Taxonomy. DM type 2, not at goal ([facility]) 04/05/2009 Overview: Modified per Diabetes protocol #14. [...] Encounters Date Type Specialty Care Team Description 10/06/2017 Nutrition Services Nutrition [facility] Dinah Moh[facility]ud[facility]E [facility] [address] 11/19/2017 Office Visit Podiatry Kylie Burroughs, REMEDIOS 310 [facility] [address] Health Maintenance Due Date Last Done Comments *ADVANCE DIRECTIVE NOT ON FILE 11/19/2014 DIABETES-URINE MICROALBUMIN EVERY 12 MONTHS 12/24/2016 12/24/2015, 02/02/2014, 01/27/2013, Additional history exists Influenza Vaccine (FLU shot) (#1) 2017 09/16/2016, 11/22/2015, 08/15/2014, Additional history exists DIABETES-EYE EXAM 06/30/2017 06/30/2016, , 03/02/2011 (Done elsewhere), Additional history exists DIABETES-HGBA1C EVERY 6 MONTHS 11/13/2017 0 05/13/2017, 02/06/2017, 06/04/2016, Additional history exists DIABETES-FOOT EXAM 05/13/2018 05/13/2017, 0 05/09/2016, 2013, Additional history exists DIABETES-LDL EVERY 12 MONTHS 05/13/201810/2017, 06/04/2016, 02/13/2015, Additional history exists TETANUS EVERY 10 YEARS-TDAP (BOOSTRIX OR ADACEL) SUGGESTED IF NOT RECEIVED IN THE PAST. 10/21/2021 10/21/2011, 11/09/2003 COLONOSCOPY-EVERY 10 YRS AGE S 50-75 12/10/2025 12/10/2015, 12/10/2015, 11/10/2003 (Done elsewhere) PNEUMOCOCCAL ADULT 65 YRS AND OVER Completed 2015, 07/23/2011 as of this encounter Implants Not on fileas of this encounter Visit Diagnoses Diagnosis Essential hypertension with goal blood pressure less than 140/90 in this encounter Insurance Payer Benefit Plan / Group Subscriber ID Type Phone Address [facility] GHP CLASSIC COMPLETE RX [id number] Medicare [phone] [place] [address] as of this encounter
--- OUTSIDE RECORDS SUMMARY | 2023-07-31 20:41 | External Medical Summary ---
Author Name Unknown Address [address] [place], [place] [address] Phone Organization K09:[facility] [address] [place] [address] Laboratory Report Ordering Provider Test Date Status CHRIS CORREA 02/06/2017 15:18:00 Final Observation Date Value Abnormality Reference Status BUN 02/06/2017 16:58 19 6-20 Fin al Creatinine 02/06/2017 16:58 1.0 0.6-1.2 Fi nal Performing Location [place] [facility] [address] [place] [address]
--- OUTSIDE RECORDS SUMMARY | 2023-07-31 20:41 | External Medical Summary | Summary of Care ---
Author Name Unknown Organization [place] [address] Phone Care Team Providers Care Watch Band Assembler Name Role Phone Lamberto Razo MD Primary Care Provider [phone] Reason for Visit * Reason Comments DSMT FOLLOW-UP * Evaluate & Treat - Unlimited Visits (Within 10 days (routine)) Status Reason Specialty Diagnoses / Procedures Referred By Contact Referred To Contact Closed By Batch Specialty Services Required Powerhouse Mechanic Apprentice Diagnoses DM (diabetes mellitus), type 2 (HCC) Lamberto Razo MD [address] [place] [address] Myla Bob RDN Encounter Details Date Type Department Care Team Description 10/06/2017 [facility] [address] [place] [address] Dinah Mohamud RDN [address] [place] [address] Type 2 diabetes mellitus with hemoglobin A1c goal of less than 7.0% ([facility])* Allergies No Known Allergiesas of this encounter Medications Prescription Sig. Disp. Refills Start Date End Date Status ciprofloxacin-dexa methasone (CIPRODEX) 0.3-0.1 % otic suspensionIndicati ons:Mixed hearing loss, unilateral,Chronic mastoiditis,Otitis media 4 DROPS RIGHT EAR ASNEEDED IF WATER GETS IN EAR 7.5 mL 3 01/29/2016 Active Blood Glucose Monitoring Suppl (HelloSign ULTRA SYSTEM) W/DEVICE KIT Use as directed [...] 90 Cap 3 08/24/2017 Active Glucose Blood (Point Blank RangeTOUCH VERIO) STRP Use up to 4 times [...] goal of less than 7.0% ([facility]) Inject 5 Units under the skin three times a day with meals. 5 units with Breakfast, lunch, and dinner 1 Pre-filled Pen Syringe Dosing Unit x 5 09/10/2017 Active insulin glargine (LANTUS SOLOSTAR) 100 UNIT/ML SOPNIndications:Ty pe 2 diabetes mellitus with hemoglobin A1c goal of less than 7.0% ([facility]) 35 units at bedtime. 5 Pre-filled Pen Syringe Dosing Unit 5 09/10/2017 Active as of this encounter Active Problems Problem Noted Date HTN, goal below 140/90 01/07/2016 Overview: Per HTN Protocol #27. OBESITY, BMI 30-34 (SEE ACTUAL BMI) 01/01 Overview: Per Obesity Taxonomy DYSLIPIDEMIA, GOAL LDL BELOW 100 009 Overview: Per Lipid Taxonomy. Type 2 diabetes mellitus with hemoglobin A1c goal of less than 7.0% ([facility]) 08/16/2009 Overview: Modified per Diabetes protocol #14. [...] Date Neurogenic ulcer of foot ([facility]) 05/19/2017 0 05/21/2017 HTN, GOAL BELOW 140/80 06/21/2012 6 Overview: Per HTN Protocol #27. HTN, GOAL BELOW 130/80 11/28/2009 2 Overview: Per HTN Taxonomy. DM type 2, not at goal ([facility]) 04/05/2009 Overview: Modified per Diabetes protocol #14. [...] - Inhaled Oxygen Concentration - - Weight 89.3 kg (196 lb 12.8 oz) 017 11:09 AM EST Height - - Body Mass Index 31.76 10/06/2017 11:09 AM EST in this encounter Instructions * Patient Instructions - Dinah Mohamud RDN - 10/06/2017 11:00 AM EST Pt will decrease consumption of sugary sweetened beverages. Pt will check glucose levels daily in AM and daily in the evening. in this encounter Progress Notes * Dinah Mohamud RDN - 10/06/2017 11:00 AM EST Formatting of this note may be different from the original. DIABETES SELF MANAGEMENT TRAINING/MEDICAL NUTRITION THERAPY Name: Selvin Sebastian Date: 10/06/[address]? yes Selvin Sebastian, identified by name and date of , is a 72 year old male being seen for diabetes education DSMT/MNT assessment: Patient concerns: Patient's diabetes concerns that they want to address today. Current barriers to care/ life issues: Financial Hard of hearing Lately have you been feeling down, depressed or hopeless most of the day? no Diabetes medication: novolog Flexpen 5 units 3 times/day with meals-breakfast, lunch, and dinner lantus 35 units at bedtime Metformin 1000 mg tablet 1 times 2 times daily with morning and evening meals Glucose review: HEMOGLOBIN A1C Stephie Dt/Tm Resulted Value Status HEMOGLOBIN, A1C (%) 09/10/17 11:28A 09/10/17 9.4* F EST AVG GLUCOSE (MG/DL) 09/10/17 11:28A 09/10/17 223* F HEMOGLOBIN A1C Stephie Dt/Tm Resulted Value Status HEMOGLOBIN, A1C (%) 05/13/17 11:12A 05/13/17 7.3* F EST AVG GLUCOSE (MG/DL) 05/13/17 11:12A 05/13/17 163* F HEMOGLOBIN A1C Stephie Dt/Tm Resulted Value Status HEMOGLOBIN, A1C (%) 02/06/17 3:18P 02/07/17 11.2* F EST AVG GLUCOSE (MG/DL) 02/06/17 3:18P 02/07/17 275* F Pt is not regularly checking glucose levels. Diet review: Wt Readings from Last 3 Encounters: 10/06/17 89.3 kg (196 lb 12.8 oz) 09/10/17 91.4 kg (201 lb 9.6 oz) 05/13/17 92.5 kg (204 lb) weight decreased slightly 8 lbs in past 5 months (3.9%). Will continue to monitor. Describes typical diet history/24 hr recall Breakfast: Oatmeal with brown sugar and maple or a donut, coffee with Congolese vanilla creamer Lunch: sometimes skips, 1-2 hot dogs with ketchup, mustard, and onion Dinner: TV dinner Snacks: 1-2 beers Drinks: water, regular soda, beer Alcohol: At least once a month Pt states his food choices are limited due to financial constraints. States he has to "eat cheap". Exercise: sedentary DSMT/Diabetes MNT previous diagnosis resolved: Not met Pt is not taking his novolog or lantus insulin and is not checking his glucose levels lately. DSMT/Diabetes MNT diagnosis: Monitoring knowledge deficit related to pt not checking glucose levels regularly as evidenced by ptreport. Medication knowledge deficit related to pt not taking prescribed insulin due to financial constraints as evidenced by not filling prescription and pt report. Chronic complication knowledge deficit related to pt unfamiliar with long-term affects of uncontrolled glucose levels as evidenced by pt encounter. DSMT/ Diabetes MNT intervention: Nutrition: Taught and had patient identify foods that contain carbohydrates. Encouraged pt to limitconsumption of sugary sweetened beverages to help keep glucose levels down. Discussed trying to eatregular meals for consistent CHO intake to help to regulate glucose levels. Medication: Discussed differences between Novolog and Lantus insulins and when to take them. Pt notpresently taking either insulin, saying he's in the donut hole with his insurance. Is awaiting new year when he get his insulin then. He states he won't get his check until mid-November. Discussed that it's important for him to have his insulin to help regulate glucose levels to prevent health complications later on. Monitoring: Discussed importance of checking glucose levels on a regular basis to help control glucose levels. When pt had been checking glucose levels, states they were often above 300. Denies recent hypoglycemic episodes. I contacted pt's PCP to obtain new Rx for Relion; left message for PCP to order. Suggested to pt that he purchase this at [id number]. PCP made aw are. Leonard of insulin quoted to who states that this is cheaper than other insulin. Note that pt does have script for Relion listed in chart, but pt didn't pick it up (?). Chronic Complications: Discussed chronic complications of diabetes. Discussed importance of controlling glucose levels in long-term basis to help prevent chronic health issues later-renal failure, cardiovascular issues, neuropathy. Patient Selected Behavioral Objective: Nutrition: To improve blood glucose control I will decrease consumption of sugary, sweetened beverages. Monitoring: To identify blood glucose trends, I will check my blood glucose daily in AM and daily in evening. Recommendations: Therapy Management Plan: 1.)Diabetes: Medication no change novolog Flexpen 5 unites 3 times/day with meals-breakfast, lunch, and dinner lantus 35 units at bedtime Metformin 1000 mg tablet 1 times 2 times daily with morning and evening meals 2.) Hypertension: BP Readings from Last 3 Encounters: 09/10/17 116/68 05/13/17 114/64 02/11/17 120/66 lisinopril-Hydrochlorothiazide 10-12.5 mg 1 tablet daily 3.) Dyslipidemia: LDL (DIRECT MEASURE)(mg/dL) Stephie Dt/Tm Resulted Value Status 09/10/17 11:28A 09/10/17 54 FINAL zocor 80 mg 1 tablet daily at bedtime 4.) Diabetic Bundle / Health Maintenance: Not addressed Patient scheduled to Return 4-6 weeks Time in: 11:09 AM Time out: 12:03 PM Dinah Mohamud RDN 10/06/2017 1:42 PM in this encounter Plan of Treatment Upcoming Encounters Date Type Specialty Care Team Description 11/19/2017 Office Visit Podiatry Kylie Burroughs, REMEDIOS [address] [place] [address] [place] [address] 11/24/2017 Nutrition Services Nutrition Services Dinah Mohamud, FELIPEN [address] [place] [address] 01/11/2018 Office Visit Family Practice Lamberto Razo MD [address] [place] [address] [phone] Health Maintenance Due Date Last Done Comments [...] of less than 7.0% (HCC) - Primary in this encounter Insurance Payer Benefit Plan / Group Subscriber ID Type Phone Address [facility] GHP CLASSIC COMPLETE RX [id number] Medicare [phone] [place] [address] as of this encounter
--- OUTSIDE RECORDS SUMMARY | 2023-07-31 20:41 | External Medical Summary ---
Author Name Unknown Address [address] [place] [id number] Phone Organization K01:[facility] [address] [place] [id number] Laboratory Report Ordering Provider Test Date Status PRINCE JOSHUA 09/10/2017 11:28:00 Final Observation Date Value Abnormality Reference Status LDL, (direct) 09/10/2017 18:05 54 0-129 Final Performing Location [facility] [address] [facility] [address]
--- OUTSIDE RECORDS SUMMARY | 2023-07-31 20:41 | External Medical Summary ---
Author Name Unknown Address [address] [place] [address] Phone Organization K0G:[facility] [place] [address] [place] [address] [place] [address] Laboratory Report Ordering Provider Test Date Status PRINCE JOSHUA 09/10/2017 11:28:00 Final Observation Date Value Abnormality Reference Status BUN 09/10/2017 12:24 12 6-20 Fin al Creatinine 09/10/2017 12:24 1.1 0.6-1.2 Fi nal Performing Location [facility] [place] [place] [address] [place] [address]
--- OUTSIDE RECORDS SUMMARY | 2023-07-31 20:41 | External Medical Summary | Summary of Care ---
Author Name Unknown Organization [place] [address] Phone Care Team Providers Care Telex Operator Name Role Phone Lamberto Razo MD Primary Care Provider [phone] Reason for Referral * Evaluate & Treat - Unlimited Visits (Within 10 days (routine)) Status Reason Specialty Diagnoses / Procedures Referred By Contact Referred To Contact Authorized Specialty Services Required Optometry Diagnoses Type 2 diabetes mellitus with hemoglobin A1c goal of less than 7.0% ([facility]) [facility] R[facility] [address] [facility] [address] Reason for Visit * Reason Comments RECHECK MEDICATION ADMINISTRATION Flu and/or Pne umo Inj Encounter Details Date Type Department Care Team Description 09/10/2017 Office Visit Family Practice [facility] 132 [facility] [place] [address] Lamberto Razo MD 132 [facility] [place] [address] [phone] Type 2 diabetes mellitus with hemoglobin A1c goal of less than 7.0% ([facility])*;Mixed hearing loss, unilateral;Dyslipidemi a, goal LDL below 100;HTN, goal below 140/90;OBESITY, BMI 30-34 (SEE ACTUAL BMI);Need for prophylactic vaccination and inoculation against influenza Allergies No Known Allergiesas of this encounter [...] goal of less than 7.0% ([facility]) TAKE ONE TABLET BY MOUTH [...] PER DAY. 1080 g 1 7 Active NOVOLOG FLEXPEN 100 UNIT/ML SOPNIndications:T [...] Pen Syringe Dosing Unit 5 7 Active levofloxacin (LEVAQUIN) 500 MG Tablet [...] Date Neurogenic ulcer of foot ([facility]) 05/19/2017 0 05/21/2017 HTN, GOAL BELOW 140/80 06/21/2012 6 Overview: Per HTN Protocol #27. HTN, GOAL BELOW 130/80 11/28/2009 2 Overview: Per HTN Taxonomy. DM type 2, not at goal ([facility]) 04/05/2009 Overview: Modified per Diabetes [...] Smokeless Tobacco: Never Used Tobacco Cessation:Counseling Given: No Alcohol Use Drinks/Week oz/Week Comments Yes 0.0 As of 2.17.2006 , the last noted alcohol intake was 1 ounces. Sex Assigned at Date Recorded Not on file as of this encounter Last Filed Vital Signs Vital Sign Reading Time Taken Blood Pressure 116/68 09/10/2017 10:35 AM EST Pulse 82 09/10/2017 10:35 AM EST Temperature 36.3 C (97.3 F) 09/10/2017 1 0:35 AM EST Respiratory Rate 16 09/10/2017 10:3 5 AM EST Oxygen Saturation - - Inhaled Oxygen Concentration - - Weight 91.4 kg (201 lb 9.6 oz) 09/10/20 17 10:35 AM EST Height 167.6 cm (5' 6") 09/10/2017 10:3 5 AM EST Body Mass Index 32.54 09/10/2017 10:35 AM EST in this encounter Instructions * Patient Instructions - Lamberto Razo MD - 09/10/2017 11:04 AM EST Formatting of this note may be different from the original. Personal Rise Diabetic Report Card For: Selvin Sebastian 09/10/2017 Below is a summary of your relevant Diabetes Values that we feel could help you manage your health better. HEMOGLOBIN A1C Your most recent Hemoglobin A1c values are: HEMOGLOBIN, A1C(%) Stephie Dt/Tm Resulted Value Status 05/13/17 11:12A 05/13/17 7.3* FINAL 02/06/17 3:18P 02/07/17 11.2* FINAL 06/04/16 1:48P 06/04/16 7.0* FINAL The above values should be LESS than 7 (< 7). If these are more than 7 then you have a higher chance of having eye, kidney, and heart problems in the future. CHOLESTEROL Your most recent LDL cholesterol (bad cholesterol) results are: LDL (DIRECT MEASURE)(mg/dL) Stephie Dt/Tm Resulted Value Status 05/13/17 11:12A 05/13/17 63 FINAL LDL (CALCULATED)(mg/dL) Stephie Dt/Tm Resulted Value Status 06/04/16 1:48P 06/04/16 85 FINAL LDL DIRECT(REFLEX)(mg/dL) Stephie Dt/Tm Resulted Value Status 06/04/16 1:48P 06/04/16 FINAL Value: NOT APPLICABLE The above values should be LESS than 100 (<100). If these are consistently higher than 100, thenyour chance for heart attack and stroke increases yearly. BLOOD PRESSURE Your most recent Blood Pressure readings are: BP Readings from Last 3 Encounters: 09/10/17 116/68 05/13/17 114/64 02/11/17 120/66 The above values should be LESS than [...] problems increases yearly. You may go to [email or web address] and register to receive all of of the above information electronically via the internet. Lamberto Razo MD [facility] ~~PATIENT INSTRUCTIONS FOR FLU SHOT~~ Possible side [...] NOSE. in this encounter Progress Notes * Chanell Lua LPN - 09/10/2017 11:10 AM EST PRE - ADMINISTRATION DOCUMENTATION Are you allergic to latex? No Are you allergic to eggs or egg products? No Are you experiencing any cold symptoms or fever? No Have you had Guillain-[place] Syndrome (an illness that causes paralysis)? No Have you had the flu shot in the past? YES Have you ever had a reaction to the flu shot? No Chanell Lua LPN, 09/10/2017 11:10 AM Immunization Administration Documentation Time Out Procedure Performed: Yes Patient Identified (Ask Name/Date of ): Yes Does the patient have a fever greater than 101 degrees today? No Patient allergic to latex? No VFC Stock: No Immunization(s) verified: Yes, Immunization Name: Flu, VIS Sheet(s) given: Yes Verified Side and Site: Yes Verified Shot(s) with Parent(s)/Patient: Yes in this encounter Plan of Treatment Upcoming Encounters Date Type Specialty Care Team Description 10/06/2017 Nutrition Services Nutrition Services Dinah Mohamud, ALFIE [address] [place] [address] 11/19/2017 Office Visit Podiatry Kylie Burroughs DPM [address] [place] [address] 01/11/2018 Office Visit Family Practice Lamberto Razo MD [address] [place] [address] [phone] Pending Results Name Priority Associated Diagnoses Date/Ti me HEMOGLOBIN A1C Routine Type 2 diabetes mellitus with hemoglobin A1c goal of less than 7.0% (HCC) 09/10/2017 11:28 AM EST LDL (DIRECT MEASURE) Routine Type 2 diabetes mellitus with hemoglobin A1c goal of less than 7.0% (HCC) 09/10/2017 11:28 AM EST BASIC METAB PANEL, BMP Routine Type 2 diabetes mellitus with hemoglobin A1c goal of less than 7.0% (HCC) 09/10/2017 11:28 AM EST ALT Routine Type 2 diabetes mellitus with hemoglobin A1c goal of less than 7.0% (HCC) 09/10/2017 11:28 AM EST Scheduled Tests Name Priority Associated Diagnoses Order S chedule HEMOGLOBIN A1C Routine Type 2 diabetes mellitus with hemoglobin A1c goal of less than 7.0% (HCC) Expected: 09/10/2017 (Approximate), Expires: 12/11/2017 LDL (DIRECT MEASURE) Routine Type 2 diabetes mellitus with hemoglobin A1c goal of less than 7.0% (HCC) Expected: 09/10/2017 (Approximate), Expires: 12/11/2017 BASIC METAB PANEL, BMP Routine Type 2 diabetes mellitus with hemoglobin A1c goal of less than 7.0% (HCC) Expected: 09/10/2017 (Approximate), Expires: 12/11/2017 ALT Routine Type 2 diabetes mellitus with hemoglobin A1c goal of less than 7.0% (HCC) Expected: 09/10/2017 (Approximate), Expires: 12/11/2017 Scheduled Referrals Name Priority Associated Diagnoses Order S chedule OPTOMETRY (DIABETES-EXTENDED) REFERRAL OP Within 10 days (routine) Type 2 diabetes mellitus with hemoglobin A1c goal of less than 7.0% (HCC) Ordered: 09/10/2017 Health Maintenance Due Date Last Done Comments [...] of less than 7.0% (HCC) - Primary Mixed hearing loss, unilater al Dyslipidemia, goal LDL below 100 Other and unspecified hyperlipidemia HTN, goal below 140/90 Unspecified essential hypertension OBESITY, BMI 30-34 (SEE ACTU AL BMI) Obesity, unspecified Need for prophylactic vaccin ation and inoculation against influenza in this encounter Insurance Payer Benefit Plan / Group Subscriber ID Type Phone Address [facility] GHP CLASSIC COMPLETE RX [id number] Medicare [phone] [facility] [place] [phone] as of this encounter
--- OUTSIDE RECORDS SUMMARY | 2023-07-31 20:41 | External Medical Summary ---
Author Name Unknown Address [address] [place] [address] Phone Organization K09:[facility] [address] [facility] [place] [address] Laboratory Report Ordering Provider Test Date Status CHRIS CORREA 02/06/2017 15:18:00 Final Observation Date Value Abnormality Reference Status WBC, Total 02/06/2017 15:37 12.60 Above high normal 4.00 -10.80 Final RBC 02/06/2017 15:37 4.68 4.50-5.25 Fin al Hemoglobin 02/06/2017 15:37 14.0 14.0-16.8 Fi nal HCT 02/06/2017 15:37 41.3 40.0-48.4 Fin al MCV 02/06/2017 15:37 88.2 82.0-99.5 Fin al MCH 02/06/2017 15:37 29.9 27.0-34.0 Fin al MCHC 02/06/2017 15:37 33.9 32.0-36.0 Fin al RDW 02/06/2017 15:37 12.7 11.5-15.5 Fin al Platelets 02/06/2017 15:37 302 140-400 Fin al MPV 02/06/2017 15:37 9.6 6.6-11.1 Fin al Segs 02/06/2017 15:37 66.8 40-75 Fin al Lymphs % 02/06/2017 15:37 23.6 18-42 Fin al Monos 02/06/2017 15:37 7.0 1-11 Fin al Eosinophils 02/06/2017 15:37 2.4 0-6 F inal Basos 02/06/2017 15:37 0.2 0-2 Fin al Absolute Segs 02/06/2017 15:37 8.42 Above high normal 1 .8-7.7 Final Lymphs, absolute 02/06/2017 15:37 2.97 1.0-4. 8 Final Monos, Abs 02/06/2017 15:37 0.88 0.0-1.1 Fi nal Eos, Abs 02/06/2017 15:37 0.30 0.0-0.7 Fin roberot Roseos, Abs 02/06/2017 15:37 0.03 0.0-0.2 Fi nal Performing Location [facility] [address] [place] [address]
--- OUTSIDE RECORDS SUMMARY | 2023-07-31 20:41 | External Medical Summary | Summary of Care ---
Author Name Unknown Organization [place] [address] Phone Care Team Providers Care Package Checker Name Role Phone Lamberto Razo MD Primary Care Provider [phone] Reason for Visit * Reason Comments eRx-Medication Refill Encounter Details Date Type Department Care Team Description 09/07/2017 Refill Family Practice [facility] [address] [facility] [place] [address] Lamberto Razo MD [address] [facility] [place] [address] [phone] Allergies No Known Allergiesas of this encounter [...] TIMES DAILY 100 Each 0 11/13/2016 Active levofloxacin (LEVAQUIN) 500 MG Tablet Take 1 Tab by mouth daily. Take one tablet by mouth once daily 90 Tab 3 04/29/2017 Active Cephalexin 500 MG Tablet 04/28/2017 Active RELION INSULIN SYRINGE 30G X 5/16" 0.3 ML MISC 02/04/2017 Active aspirin enteric coated 81 MG TBECIndications:Ty pe 2 diabetes mellitus with diabetic neuropathy, unspecified (HCC) Take 1 Tab by mouth daily. 100 Tab 3 05/13/2017 Active Lisinopril-Hydroch lorothiazide 10-12.5 MG per tabletIndications: Essential hypertension with goal blood pressure less than 140/90 Take 1 Tab by mouth daily. 90 Tab 3 08/24/2017 Active simvastatin (ZOCOR) 80 MG TabletIndications: Dyslipidemia, goal LDL below 100 Take 1 Tab by mouth at bedtime. 90 Tab 3 08/24/2017 Active NOVOLOG FLEXPEN 100 UNIT/ML SOPN Inject 5 Units under the skin three times a day with meals. 5 units with Breakfast, lunch, and dinner 1 Pre-filled Pen Syringe Dosing Unit x 5 08/24/2017 Active Sildenafil Citrate (VIAGRA) 50 MG [...] EVENING MEALS 180 Tab 3 08/24/2017 Active insulin glargine (LANTUS SOLOSTAR) 100 UNIT/ML SOPNIndications:Ty pe 2 diabetes mellitus with hemoglobin A1c goal of less than 7.0% (HCC) 35 units at bedtime. 5 Pre-filled Pen Syringe Dosing Unit 5 08/24/2017 Active tamsulosin (FLOMAX) 0.4 MG Capsule Take 1 Cap by mouth daily. 90 Cap 3 08/24/2017 Active Glucose Blood (ONETOUCH VERIO) STRP Use up to 4 times a day E11.9 300 Strip 3 08/24/2017 Active lidocaine 5 % ointment APPLY 2-3 GRAMS TOPICALLY TO AFFECTED AREA 3-4 TIMES PER DAY. 1080 g 1 09/08/2017 Active as of this encounter Active Problems Problem Noted Date HTN, goal below 140/90 01/07/2016 Overview: Per HTN Protocol #27. OBESITY, BMI 30-34 (SEE ACTUAL BMI) 01/01 Overview: Per Obesity Taxonomy DYSLIPIDEMIA, GOAL LDL BELOW 100 009 Overview: Per Lipid Taxonomy. Type 2 diabetes mellitus with hemoglobin A1c goal of less than 7.0% ([facility]) 08/16/2009 Overview: Modified per Diabetes protocol #14. ICD-10 update of inactive term ADVANCE DIRECTIVE INFORMATION 07/15/2006 Overview: Pt took booklet. AC SEROUS OTITIS MEDIA 07/15/2006 Mixed hearing loss, unilateral Overview: right Sensorineural hearing loss, unilateral Overview: left Otitis media Chronic mastoiditis Allergic rhinitis Dysfunction of eustachian tube as of this encounter Resolved Problems Problem Noted Date Resolved Date Neurogenic ulcer of foot ([facility]) 05/19/2017 0 05/21/2017 HTN, GOAL BELOW 140/80 06/21/2012 6 Overview: Per HTN Protocol #27. HTN, GOAL BELOW 130/80 11/28/2009 2 Overview: Per HTN Taxonomy. DM type 2, not at goal ([facility]) 04/05/2009 Overview: Modified per Diabetes protocol [...] 07/23/2011 Seasonal Influenza, Quadriva lent, No Preserve, IM [...] Encounters Date Type Specialty Care Team Description 09/10/2017 Office Visit Family Practice Lamberto Razo MD [address] [facility] [place] [address] [phone] 10/06/2017 Nutrition Services Nutrition Services Dinah Mohamud, RDN [facility] [address] 11/19/2017 Office Visit Podiatry Kylie Burroughs DPM [address] [place] [address] [place] [address] Health Maintenance Due Date Last Done [...] Phone Address [facility] G[employer] CLASSIC COMPLETE RX [id number] Medicare [phone] [address] [facility] [place] [address] as of this encounter
--- OUTSIDE RECORDS SUMMARY | 2023-07-31 20:41 | External Medical Summary ---
Author Name Unknown Address [facility] [place] [address] Phone Organization K01:[facility] [address] [place] [id number] Laboratory Report Ordering Provider Test Date Status CRHIS CORREA 02/06/2017 15:18:00 Final Observation Date Value Abnormality Reference Status Prealbumin 02/06/2017 22:07 23 18-45 Fi nal Performing Location [address] [address]
--- OUTSIDE RECORDS SUMMARY | 2023-07-31 20:41 | External Medical Summary ---
Author Name Unknown Address [address] [facility] [place] [address] Phone Organization K0G:Lianne Vogel [address] [facility] [place] [address] Laboratory Report Ordering Provider Test Date Status PRINCE ANH LEWIS 06/04/2016 13:48:00 Final Obs # Observation Date Value Abnormality Reference Status Performing Location 0 ALT (Alanine aminotransferase) 06/04/2016 15:10 13 10-50 Final [facility] Erica Vogel [address] [place] [address]
--- OUTSIDE RECORDS SUMMARY | 2023-07-31 20:41 | External Medical Summary | Summary of Care ---
Author Name Unknown Organization [place] [address] Phone Care Team Providers Care Giving Officer Name Role Phone Lamberto Razo MD Primary Care Provider [phone] Reason for Referral * Evaluate & Treat - Unlimited Visits (Within 10 days (routine)) Status Reason Specialty Diagnoses / Procedures Referred By Contact Referred To Contact Authorized Specialty Services Required Optometry Diagnoses Type 2 diabetes mellitus with hemoglobin A1c goal of less than 7.0% ([facility]) [facility]amber[facility] [address] Reason for Visit * Reason Comments RECHECK MEDICATION ADMINISTRATION Flu and/or Pne umo Inj Encounter Details Date Type Department Care Team Description 09/10/2017 Office Visit Family Practice [facility] 132 [facility] [place] [address] Lamberto Razo MD [address] [facility] [place] [address] [phone] Type 2 diabetes mellitus with hemoglobin A1c goal of less than 7.0% ([facility])*;Mixed hearing loss, unilateral;Dyslipidemi a, goal [...] 3 6 Active Blood Glucose Monitoring Suppl (Banki.ru ULTRA SYSTEM) W/DEVICE KIT Use as directed 4 times a day as needed for Hyperglycemia (high sugar) or Hypoglycemia (low sugar). Use up to four times a day as directed 1 Kit 0 6 Active 3seventyTOUCH ULTRA BLUE STRP USE TO CHECK GLUCOSE 4 TIMES DAILY 100 Strip 0 7 Active 3seventyTOUCH DELICA LANCETS 33G MISC USE ONE TO CHECK GLUCOSE 4 TIMES DAILY 100 Each 0 7 Active RELION INSULIN SYRINGE 30G X 5/16" 0.3 ML MISC 7 Active aspirin enteric coated 81 MG TBECIndications:T ype 2 diabetes mellitus with diabetic neuropathy, unspecified (HCC) Take 1 Tab by mouth daily. 100 Tab 3 7 Active Lisinopril-Hydroc hlorothiazide 10-12.5 MG per tabletIndications :Essential hypertension with goal blood pressure less than 140/90 Take 1 Tab by mouth daily. 90 Tab 3 7 Active simvastatin (ZOCOR) 80 [...] 500 MG Tablet 7 09/10/20 17 Discontinued NOVOLOG FLEXPEN 100 [...] Date Resolved Date Neurogenic ulcer of foot ([facility]) 05/19/2017 0 05/21/2017 HTN, GOAL BELOW 140/80 06/21/2012 6 Overview: Per HTN Protocol #27. HTN, GOAL BELOW 130/80 11/28/2009 2 Overview: Per HTN Taxonomy. DM type 2, not at goal ([facility]) 04/05/2009 Overview: Modified per Diabetes [...] may be different from the original. Personal Carefx Diabetic Report Card For: Selvin Sebastian 09/10/2017 [...] problems increases yearly. You may go to [email or web address] and register to receive all of of the above information electronically via the internet. Lamberto Razo MD FAMILY PRACTICE [facility] ~~PATIENT INSTRUCTIONS FOR FLU SHOT~~ Possible side [...] symptoms or fever? No Have you had Guillain-[place] Syndrome (an illness that causes paralysis)? No [...] Nutrition Services Dinah Mohamud, ALFIE [address] [place] [address] 11/19/2017 Office Visit Podiatry Kylie Burroughs DPM [address] [place] [address] Scheduled Tests Name Priority Associated Diagnoses [...] Group Subscriber ID Type Phone Address [facility] GHP CLASSIC COMPLETE RX [id number] Medicare [phone] [address] [facility] [place] [address] as of this encounter
--- OUTSIDE RECORDS SUMMARY | 2023-07-31 20:41 | External Medical Summary | Summary of Care ---
Author Name Unknown Organization [place] [address] Phone Care Team Providers Care Sandstone Inspector Repairer Name Role Phone Lamberto Razo MD Primary Care Provider [phone] Reason for Referral * Evaluate & Treat - Unlimited Visits (Within 10 days (routine)) Status Reason Specialty Diagnoses / Procedures Referred By Contact Referred To Contact Authorized Specialty Services Required Optometry Diagnoses Type 2 diabetes mellitus with hemoglobin A1c goal of less than 7.0% ([facility]) Lamberto Razo MD [address] [facility] [address] Reason for Visit * Reason Comments RECHECK MEDICATION ADMINISTRATION Flu and/or Pne umo Inj Encounter Details Date Type Department Care Team Description 09/10/2017 Office Visit Family Practice [facility] 132 [facility] [place] [address] Lamberto Razo MD 132 [facility] [place] [address] [phone] Type 2 diabetes mellitus with hemoglobin A1c goal of less than 7.0% ([facility])*;Mixed hearing loss, unilateral;Dyslipidemi a, goal LDL below [...] goal of less than 7.0% ([facility]) TAKE ONE TABLET BY MOUTH TWICE DAILY [...] Date Neurogenic ulcer of foot ([facility]) 05/19/2017 0 05/21/2017 HTN, GOAL BELOW 140/80 06/21/2012 6 Overview: Per HTN Protocol #27. HTN, GOAL BELOW 130/80 11/28/2009 2 Overview: Per HTN Taxonomy. DM type 2, not at goal ([facility]) 04/05/2009 Overview: Modified per Diabetes protocol #14. [...] may be different from the original. Personal Q-go Diabetic Report Card For: Selvin Sebastian 09/10/2017 [...] problems increases yearly. You may go to [email or web address] and register to receive all of of the above information electronically via the internet. Lamberto Razo MD FAMILY [facility] ~~PATIENT INSTRUCTIONS FOR FLU SHOT~~ Possible side [...] symptoms or fever? No Have you had Guillain-[place] Syndrome (an illness that causes paralysis)? No [...] Site: Yes Verified Shot(s) with Parent(s)/Patient: Yes * Lamberto Razo MD - 09/10/2017 10:40 AM EST Subjective: Patient here for recheck He has been having trouble affording his insulin, He is in the doughnut hole, can 't afford either Lantus or NovoLog Has been without insulin for several days. Agreeable to flu shot Agreeable to blood tests He is due for optometry visit Blood pressure doing well Weight is down a couple lb He is followed by podiatry for his neuropathy Objective: Carotids 2+ bilaterally Lungs clear Cardiac exam regular rate rhythm Extremities without edema Assessment: E11.9 Type 2 diabetes mellitus with hemoglobin a1c goal of less than 7.0% (hcc) (primary encounter diagnosis) Plan: Hemoglobin a1c Ldl (direct measure) Basic metab panel, bmp Alt Hemoglobin a1c Ldl (direct measure) Basic metab panel, bmp Alt Optometry (diabetes-extended) referral op Novolog flexpen 100 unit/ml subq sopn Sig:Inject 5 units under the skin three times a day with meals. 5 units with breakfast, lunch, and dinner Insulin glargine 100 unit/ml subq sopn Si units at bedtime. I gave him written prescriptions for his insulin. He will shop around for the best deal. I emphasized his need to stay on the insulin. Continue metformin H90.8 Mixed hearing loss, unilateral Continue hearing aids E78.5 Dyslipidemia, goal ldl below 100 I10 Htn, goal below 140/90 Well controlled E66.9 Obesity, bmi 30-34 (see actual bmi) Z23 Need for prophylactic vaccination and inoculation against influenza Plan: Influenza vacc, quad, pf, 6 months & up, 0.5 ml, im Follow up: Return in about 4 months (around 01/08/2018). in this encounter Plan of Treatment Upcoming Encounters Date Type Specialty Care Team Description 10/06/2017 Nutrition Services Nutrition Services Dinah Mohamud, ALFIE [address] [place] [facility] [place] [address] 11/19/2017 Office Visit Podiatry Kylie Burroughs DPM [address] [facility] [address] 01/11/2018 Office Visit Family Practice Lamberto Razo MD 132 [place] [address] [phone] Pending Results Name Priority Associated Diagnoses Date/Ti me HEMOGLOBIN A1C Routine Type 2 diabetes mellitus with hemoglobin A1c goal of less than 7.0% ([facility]) 09/10/2017 11:28 AM EST LDL (DIRECT MEASURE) [...] goal of less than 7.0% ([facility]) Ordered: 09/10/2017 Health Maintenance Due Date Last [...] Implants Not on fileas of this encounter Results * ALT (09/10/2017 11:28 AM) Component Value Ref Range ALT 9(L) 10 - 50 U/L Specimen Performing Laborator y [employer] [facility] [address] [employer] [facility] [place] [address] * BASIC METAB PANEL, BMP (09/10/2017 11:28 AM) Component Value Ref Range BUN 12 6 - 20 mg/dL CREATININE 1.1 Comment: GFR should be used to assess renal function.Plasma/Serum creatinine may not be able to properly reflect renal function in some cases. 0.6 - 1.2 mg/dL SODIUM 135 135 - 146 mmol/L POTASSIUM 4.5 3.5 - 5.1 mmol/L CHLORIDE 97(L) 98 - 107 mmol/L CO2 27 22 - 32 mmol/L ANION GAP 11 7 - 15 mmol/L GLUCOSE 229(H) 70 - 120 mg/dL CALCIUM 8.9 8.4 - 10.2 mg/dL E GLOM FILT RATE >60.0Comment:If manisha ent is , multiply estimated GFR by 1.159. >60 Specimen Performing Laborator y [employer] [facility] 132 [facility] [place] [address] in this encounter Visit Diagnoses Diagnosis Type [...] / Group Subscriber ID Type Phone Address [facility] [employer] [facility] GHP CLASSIC COMPLETE RX [id number] Medicare [phone] [address] [facility] [place] [address] as of this encounter
--- OUTSIDE RECORDS SUMMARY | 2023-07-31 20:41 | External Medical Summary ---
Author Name Unknown Address Unknown Organization [id number]:Performed at [facility] [address] [place] [address] Laboratory Report Ordering Provider Test Date Status PRINCE ANH LEWIS 06/04/2016 13:48:00 Final Obs # Observation Date Value Abnormality Reference Status Performing Location 0 Fasting status - Reported 06/04/2016 13:51 12 Final Performed at [facility] [address] [place] [address] 1 Triglyceride 06/04/2016 21:45 131 <200 Final
--- OUTSIDE RECORDS SUMMARY | 2023-07-31 20:41 | External Medical Summary | Summary of Care ---
Author Name Unknown Organization [facility] [address] Phone Care Team Providers Care Medical Legal Investigator Name Role Phone Lamberto Razo MD Primary Care Provider [phone] Reason for Visit * Reason Comments MEDICATION PROBLEM Encounter Details Date Type Department Care Team Description 08/18/2017 Telephone Trisha, [facility] 132 [place] [address] Lamberto Razo MD [address] [place] [address] [phone] MEDICATION PROBLEM Allergies No Known Allergiesas of this encounter [...] day E11.9 300 Strip 3 7 Active Insulin Pen Needle (RELION PEN NEEDLES) 32G X 4 MM Use as directed with flexpen 100 Each 6 6 08/21/20 17 Discontinued MetFORMIN (GLUCOPHAGE) 1000 MG TabletIndications :Type 2 diabetes mellitus with hemoglobin A1c goal of less than 7.0% (HCC) TAKE ONE TABLET BY MOUTH TWICE DAILY WITH MORNING AND EVENING MEALS 180 Tab 3 6 08/21/20 17 Discontinued Lisinopril-Hydroc hlorothiazide 10-12.5 MG per tabletIndications :Essential hypertension with goal blood pressure less than 140/90 Take 1 Tab by mouth daily. 90 Tab 3 6 08/21/20 17 Discontinued simvastatin (ZOCOR) 80 MG TabletIndications :Dyslipidemia, goal LDL below 100 Take 1 Tab by mouth at bedtime. 90 Tab 3 6 08/21/20 17 Discontinued insulin glargine (LANTUS SOLOSTAR) 100 UNIT/ML SOPNIndications:T ype 2 diabetes mellitus with hemoglobin A1c goal of less than 7.0% (HCC) 15 units at bedtime. 5 Pre-filled Pen Syringe Dosing Unit 5 6 08/21/20 17 Discontinued Insulin Syringe-Needle U-100 30G X 1/2" 0.3 ML MISCIndications:T ype 2 diabetes mellitus with hemoglobin A1c goal of less than 7.0% (HCC) Use for 2 daily insulin for e11.9 1 Box Dosing Unit 11 7 08/24/20 17 Discontinued NOVOLOG FLEXPEN 100 UNIT/ML SOPN 5 Units. 5 units with Breakfast, lunch, and dinner x 5 7 08/21/20 17 Discontinued Sildenafil Citrate (VIAGRA) 50 MG TabletIndications :Impotence of organic origin Take 1 Tab by mouth as needed for Erectile Dysfunction. 5 Tab 6 7 08/21/20 17 Discontinued levofloxacin (LEVAQUIN) 500 MG Tablet Take 1 Tab by mouth daily. Take one tablet by mouth once daily 90 Tab 3 7 09/10/20 17 Discontinued tamsulosin (FLOMAX) 0.4 MG Capsule Take 1 Cap by mouth daily. 90 Cap 3 7 08/21/20 17 Discontinued Cephalexin 500 MG Tablet 7 09/10/20 17 Discontinued insulin glargine (LANTUS SOLOSTAR) 100 UNIT/ML SOPNIndications:T ype 2 diabetes mellitus with hemoglobin A1c goal of less than 7.0% (HCC) 35 units at bedtime. 5 Pre-filled Pen Syringe Dosing Unit 5 7 08/24/20 17 Discontinued Lisinopril-Hydroc hlorothiazide 10-12.5 MG per tabletIndications :Essential hypertension with goal blood pressure less than 140/90 Take 1 Tab by mouth daily. 90 Tab 3 7 09/10/20 17 Discontinued MetFORMIN (GLUCOPHAGE) 1000 MG TabletIndications :Type 2 diabetes mellitus with hemoglobin A1c goal of less than 7.0% (HCC) TAKE ONE TABLET BY MOUTH TWICE DAILY WITH MORNING AND EVENING MEALS 180 Tab 3 7 08/24/20 17 Discontinued tamsulosin (FLOMAX) 0.4 MG Capsule Take 1 Cap by mouth daily. 90 Cap 3 7 08/24/20 17 Discontinued NOVOLOG FLEXPEN 100 UNIT/ML SOPN Inject 5 Units under the skin three times a day with meals. 5 units with Breakfast, lunch, and dinner 1 Pre-filled Pen Syringe Dosing Unit x 5 7 09/10/20 17 Discontinued Glucose Blood (ONETOUCH VERIO) STRP Use up to 4 times a day E11.9 100 Strip 11 7 08/24/20 17 Discontinued insulin glargine (LANTUS SOLOSTAR) 100 UNIT/ML SOPNIndications:T ype 2 diabetes mellitus with hemoglobin A1c goal of less than 7.0% ([facility]) 35 units at bedtime. 5 Pre-filled Pen [...] of less than 7.0% ([facility]) 08/16/2009 Overview: Modified per Diabetes protocol #14. [...] Date Neurogenic ulcer of foot ([facility]) 05/19/2017 0 05/21/2017 HTN, GOAL BELOW 140/80 06/21/2012 6 Overview: Per HTN Protocol #27. HTN, GOAL BELOW 130/80 11/28/2009 2 Overview: Per HTN Taxonomy. DM type 2, not at goal ([facility]) 04/05/2009 Overview: Modified per Diabetes protocol #14. [...] 10/06/2017 Nutrition Services Nutrition Services Dinah Mohamud, FELIPEN [address] [facility] [place] [address] 11/19/2017 Office Visit Podiatry Kylie Burroughs DPM [address] [place] [address] 01/11/2018 Office Visit Family Practice Lamberto Razo MD 132 [place] [address] Health Maintenance Due Date Last Done [...] A1c goal of less than 7.0% (HCC) Essential hypertension with goal blood pressure less than 140/90 Dyslipidemia, goal LDL below 100 Other and unspecified hyperlipidemia Impotence of organic origin in this encounter Insurance Payer Benefit Plan / Group Subscriber ID Type Phone Address [facility] GHP CLASSIC COMPLETE RX [id number] Medicare [phone] [address] [facility] [place] [address] as of this encounter
--- OUTSIDE RECORDS SUMMARY | 2023-07-31 20:41 | External Medical Summary ---
Author Name Unknown Address [facility] [address] [place] [id number] Phone Organization K01:[place] [address] [address] [facility] [address] Laboratory Report Ordering Provider Test Date Status PRINCE ANH LEWIS 06/04/2016 13:48:00 Final Obs # Observation Date Value Abnormality Reference Status Performing Location 0 HbA1C 06/04/2016 21:47 7.0 Above high normal 4.0-6.4 Final [place] [address] [address] [facility] [address]
--- OUTSIDE RECORDS SUMMARY | 2023-07-31 20:41 | External Medical Summary ---
Author Name Unknown Address [facility] N [facility] Phone Organization K01:[place] [id number] Laboratory Report Ordering Provider Test Date Status CHRIS CORREA 02/06/2017 15:18:00 Final Observation Date Value Abnormality Reference Status CRP, low-sensitivity 02/06/2017 22:07 13 Above high n ormal 0-5 Final Performing Location [address] [address]
--- OUTSIDE RECORDS SUMMARY | 2023-07-31 20:41 | External Medical Summary ---
Author Name Unknown Address [facility] [place] [address] Phone Organization K01:[facility] [address] [place] [id number] Laboratory Report Ordering Provider Test Date Status PRINCE JOSHUA 05/13/2017 11:12:00 Final Observation Date Value Abnormality Reference Status Hep C Ab 05/13/2017 21:20 NEGATIVE NEG Fin al Performing Location [facility] [address] [facility] [address]
--- OUTSIDE RECORDS SUMMARY | 2023-07-31 20:41 | External Medical Summary ---
Author Name Unknown Address 132 [facility] [place] [address] Phone Organization K0G:RADHA Vogel [address] [place] [address] [place] [address] Laboratory Report Ordering Provider Test Date Status PRINCE JOSHUA 05/13/2017 11:12:00 Final Observation Date Value Abnormality Reference Status ALT (Alanine aminotransferase) 05/13/2017 12:25 11 10-50 Final Performing Location RADHA Vogel [address] [place] [address] [place] [address]
--- OUTSIDE RECORDS SUMMARY | 2023-07-31 20:41 | External Medical Summary ---
Author Name Unknown Address [address] [place] [address] Phone Organization K0G:RADHA Vogel [address] [place] [address] [place] [address] Laboratory Report Ordering Provider Test Date Status PRINCE JOSHUA 05/13/2017 11:12:00 Final Observation Date Value Abnormality Reference Status BUN 05/13/2017 12:25 18 6-20 Fin al Creatinine 05/13/2017 12:25 1.1 0.6-1.2 Fi nal Performing Location [facility] Erica Vogel [address] [place] [address]
--- OUTSIDE RECORDS SUMMARY | 2023-07-31 20:42 | External Medical Summary ---
Author Name Unknown Organization K0G:[facility], [address] [place] [address] S[place], [place] [address] Laboratory Report Ordering Provider Test Date Status JOSHUA QUEZADA MD 08/15/2014 15:11:00-0400 Final Obs # Observation Date Value ABNL Reference Status Pe rforming Location 1 ALT (Alanine aminotransferase) 08/15/2014 16:01-0400 20 10-50 U/L Final
--- OUTSIDE RECORDS SUMMARY | 2023-07-31 20:42 | External Medical Summary ---
Author Name Unknown Address [address] [place] [address] Phone Organization K01:[facility] [address] [facility] [address] Laboratory Report Ordering Provider Test Date Status PRINCE ANH LEWIS [id number] Final Obs # Observation Date Value Abnormality Reference Status Performing Location 0 Albumin, Urine [id number] <1.20 [facility] [address] [facility] [address] 1 Creatinine, Urine [id number] 58 [facility] [address] [facility] [address] 2 Microalbumin / Creatinine Ratio [id number] <21 <30 Final [facility] [address] [facility] [address]
--- OUTSIDE RECORDS SUMMARY | 2023-07-31 20:42 | External Medical Summary ---
Author Name Unknown Organization K01:[facility], [address] [address] Laboratory Report Ordering Provider Test Date Status JOSHUA QUEZADA MD 02/02/2014 14:45:00-0400 Final Obs # Observation Date Value ABNL Reference Status Pe rforming Location 1 BUN 02/02/2014 22:30-0400 21 H 6-20 mg/dL Final 2 Creatinine 02/02/2014 22:30-0400 1.1 0.7-1.3 mg/dL Final GFR should be used to assess renal function. Plasma/Serum creatinine may not be able to properly reflect renal function in some cases. If patient is , multiply estimated GFR by 1.159.
--- OUTSIDE RECORDS SUMMARY | 2023-07-31 20:42 | External Medical Summary ---
Author Name Unknown Organization K01:[facility], [address] [address] Laboratory Report Ordering Provider Test Date Status JOSHUA QUEZADA MD 08/15/2014 15:11:00-0400 Final Obs # Observation Date Value ABNL Reference Status Pe rforming Location 1 LDL, (direct) 08/15/2014 22:25-0400 80 0-129 mg/dL Final LDL CHOLESTEROL REFERENCE RANGES(mg/dL) <100 OPTIMAL GOAL FOR HIGH RISK PATIENTS 100-129 NEAR OR ABOVE NORMAL 130-159 BORDERLINE HIGH 160-189 HIGH >189 VERY HIGH
--- OUTSIDE RECORDS SUMMARY | 2023-07-31 20:42 | External Medical Summary ---
Author Name PRINCE KAMARA Organization K01:[facility], [address] [address] Support Name Relationship Address Phone JOSHUA QUEZADA MD Unknown Unavailabl e Laboratory Report Ordering Provider Test Date Status JOSHUA QUEZADA MD 04/20/2012 14:00:00-0400 Final Obs # Observation Date Value ABNL Reference Status Pe rforming Location 1 LDL, (direct) 04/20/2012 22:24-0400 66 0-129 mg/dL Final LDL CHOLESTEROL REFERENCE RANGES(mg/dL) <100 OPTIMAL GOAL FOR HIGH RISK PATIENTS 100-129 NEAR OR ABOVE NORMAL 130-159 BORDERLINE HIGH 160-189 HIGH >189 VERY HIGH
--- OUTSIDE RECORDS SUMMARY | 2023-07-31 20:42 | External Medical Summary ---
Author Name PRINCE KAMARA Organization K01:[facility] [address], [facility] [address] [place] [address] Support Name Relationship Address Phone PRINCE KAMARA, JOSHUA SOMMERS Unknown Unavailabl e Laboratory Report Ordering Provider Test Date Status JOSHUA QUEZADA MD 08/03/2012 13:37:00-0400 Final Obs # Observation Date Value ABNL Reference Status Pe rforming Location 1 ALT (Alanine aminotransferase) 08/03/2012 21:07-0400 17 10-50 U/L Final
--- OUTSIDE RECORDS SUMMARY | 2023-07-31 20:42 | External Medical Summary ---
Author Name Unknown Organization K01:[facility], [facility] [address] [address] Laboratory Report Ordering Provider Test Date Status JOSHUA QUEZADA MD 2013 15:29:00-0400 Final Obs # Observation Date Value ABNL Reference Status Pe rforming Location 1 ALT (Alanine aminotransferase) 2013 22:54-0400 15 10-50 U/L Final
--- OUTSIDE RECORDS SUMMARY | 2023-07-31 20:42 | External Medical Summary ---
Author Name PRINCE KAMARA Organization K01:[facility], [address] [address] Support Name Relationship Address Phone JOSHUA QUEZADA MD PROV Unknown Unavailabl e Laboratory Report Ordering Provider Test Date Status JOSHUA QUEZADA MD 01/27/2013 12:43:00-0400 Final Obs # Observation Date Value ABNL Reference Status Pe rforming Location 1 Albumin, Urine 01/27/2013 18:15-0400 0.60 0-2 mg/dL Final 2 Creatinine, Random Urine 01/27/2013 18:15-0400 99 mg/dL Final 3 Microalbumin / Creatinine Ratio 01/27/2013 18:15-0400 6 <31 mg/g creat Final Normal: 0- 29 mg/g creatinine High: 30-300 mg/g creatinine Very High and Nephrotic: >300 mg/g creatinine
--- OUTSIDE RECORDS SUMMARY | 2023-07-31 20:42 | External Medical Summary ---
Author Name Unknown Address [address] [id number] Phone Organization K01:[facility] [address] [facility] [address] Laboratory Report Ordering Provider Test Date Status PRINCE ANH LEWIS [id number] Final Obs # Observation Date Value Abnormality Reference Status Performing Location 0 HbA1C [id number] 11.7 Above high normal 4.0-6.4 Final [facility] [address] [facility] [address]
--- OUTSIDE RECORDS SUMMARY | 2023-07-31 20:42 | External Medical Summary ---
Author Name Unknown Organization K0G:[facility] Erica Vogel, [address] [address] Laboratory Report Ordering Provider Test Date Status JOSHUA QUEZADA MD 02/13/2015 09:41:00-0400 Final Obs # Observation Date Value ABNL Reference Status Pe rforming Location 1 BUN 02/13/2015 11:00-0400 22 H 6-20 mg/dL Final 2 Creatinine 02/13/2015 11:00-0400 1.1 0.7-1.3 mg/dL Final GFR should be used to assess renal function. Plasma/Serum creatinine may not be able to properly reflect renal function in some cases. If patient is , multiply estimated GFR by 1.159.
--- OUTSIDE RECORDS SUMMARY | 2023-07-31 20:42 | External Medical Summary ---
Author Name PRINCE KAMARA Organization K09:[address] , [place] [address] Support Name Relationship Address Phone JOSHUA QUEZADA MD PROV Unknown Unavailabl e Laboratory Report Ordering Provider Test Date Status JOSHUA QUEZADA MD 01/27/2013 12:35:00-0400 Final Obs # Observation Date Value ABNL Reference Status Pe rforming Location 1 BUN 01/27/2013 15:13-0400 13 6-20 mg/dL Final 2 Creatinine 01/27/2013 15:130400 1.1 0.7-1.3 mg/dL Final GFR should be used to assess renal function. Plasma/Serum creatinine may not be able to properly reflect renal function in some cases.
--- OUTSIDE RECORDS SUMMARY | 2023-07-31 20:42 | External Medical Summary ---
Author Name Unknown Organization K01:[facility], [address] [address] Laboratory Report Ordering Provider Test Date Status JOSHUA QUEZADA MD 2013 15:29:00-0400 Final Obs # Observation Date Value ABNL Reference Status Pe rforming Location 1 BUN 2013 22:54-0400 16 6-20 mg/dL Final 2 Creatinine 2013 22:54-0400 1.1 0.7-1.3 mg/dL Final GFR should be used to assess renal function. Plasma/Serum creatinine may not be able to properly reflect renal function in some cases.
--- OUTSIDE RECORDS SUMMARY | 2023-07-31 20:42 | External Medical Summary ---
Author Name Unknown Organization K0G:[facility], [facility] [address], [place] [address] Laboratory Report Ordering Provider Test Date Status JOSHUA QUEZADA MD 02/13/2015 09:41:00-0400 Final Obs # Observation Date Value ABNL Reference Status Pe rforming Location 1 ALT (Alanine aminotransferase) 02/13/2015 11:00-0400 25 10-50 U/L Final
--- OUTSIDE RECORDS SUMMARY | 2023-07-31 20:42 | External Medical Summary ---
Author Name PRINCE KAMARA Organization K01:[facility], [address] [address] Support Name Relationship Address Phone JOSHUA QUEZADA MD Unknown Unavailabl e Laboratory Report Ordering Provider Test Date Status JOSHUA QUEZADA MD 01/27/2013 12:35:00-0400 Final Obs # Observation Date Value ABNL Reference Status Pe rforming Location 1 HbA1C 01/27/2013 20:34-0400 6.5 H 3.4-6.4 % Final 2 Glucose, estimated average 01/27/2013 20:34-0400 140 H <126 MG/DL Final
--- OUTSIDE RECORDS SUMMARY | 2023-07-31 20:42 | External Medical Summary ---
Author Name Unknown Organization K0G:[facility] [place] [place] Erica Vogel, [address] [address] Laboratory Report Ordering Provider Test Date Status JOSHUA QUEZADA MD 08/15/2014 15:11:00-0400 Final Obs # Observation Date Value ABNL Reference Status Pe rforming Location 1 BUN 08/15/2014 16:01-0400 16 6-20 mg/dL Final 2 Creatinine 08/15/2014 16:01-0400 1.1 0.7-1.3 mg/dL Final GFR should be used to assess renal function. Plasma/Serum creatinine may not be able to properly reflect renal function in some cases. If patient is , multiply estimated GFR by 1.159.
--- OUTSIDE RECORDS SUMMARY | 2023-07-31 20:42 | External Medical Summary ---
Author Name Unknown Organization [id number] Laboratory Report Ordering Provider Test Date Status JOSHUA QUEZADA MD 02/13/2015 09:41:00-0400 Final Obs # Observation Date Value ABNL Reference Status Pe rforming Location 1 hours fasting 02/13/2015 09:43-0400 12 hours Final 2 Triglyceride 02/13/2015 17:46-0400 112 <200 mg/dL Final TRIGLYCERIDE REFERENCE RANGES (mg/dL) <150 NORMAL 150-199 BORDERLINE HIGH 200-499 HIGH >499 VERY HIGH TOTAL CHOLESTEROL REFERENCE RANGES(mg/dL) <200 DESIRABLE 200-239 BORDERLINE HIGH >239 HIGH HDL CHOLESTEROL REFERENCE RANGES(mg/dL) <40 LOW(UNDESIRABLE) >59 HIGH(DESIRABLE) LDL CHOLESTEROL REFERENCE RANGES(mg/dL) <100 OPTIMAL GOAL FOR HIGH RISK PATIENTS 100-129 NEAR OR ABOVE NORMAL 130-159 BORDERLINE HIGH 160-189 HIGH >189 VERY HIGH
--- OUTSIDE RECORDS SUMMARY | 2023-07-31 20:42 | External Medical Summary ---
Author Name Unknown Organization K01:[facility], [address] [address] Laboratory Report Ordering Provider Test Date Status JOSHUA QUEZADA MD 2013 15:29:00-0400 Final Obs # Observation Date Value ABNL Reference Status Pe rforming Location 1 HbA1C 2013 23:57-0400 6.9 H 3.4-6.4 % Final 2 Glucose, estimated average 2013 23:57-0400 151 H <126 MG/DL Final
--- OUTSIDE RECORDS SUMMARY | 2023-07-31 20:42 | External Medical Summary ---
Author Name Unknown Organization K01:[facility], [address] [address] Laboratory Report Ordering Provider Test Date Status JOSHUA QUEZADA MD 02/13/2015 09:41:00-0400 Final Obs # Observation Date Value ABNL Reference Status Pe rforming Location 1 HbA1C 02/13/2015 18:11-0400 8.9 H 4.0-6.4 % Final 2 Glucose, estimated average 02/13/2015 18:11-0400 209 H <126 MG/DL Final
--- OUTSIDE RECORDS SUMMARY | 2023-07-31 20:42 | External Medical Summary ---
Author Name PRINCE KAMARA Organization K09:[facility] heide [facility] [address], [place] [address] Support Name Relationship Address Phone JOSHUA QUEZADA MD PROV Unknown Unavailabl e Laboratory Report Ordering Provider Test Date Status JOSHUA QUEZADA MD 01/27/2013 12:35:00-0400 Final Obs # Observation Date Value ABNL Reference Status Pe rforming Location 1 ALT (Alanine aminotransferase) 01/27/2013 15:13-0400 15 10-50 U/L Final
--- OUTSIDE RECORDS SUMMARY | 2023-07-31 20:42 | External Medical Summary ---
Author Name PRINCE KAMARA Organization K01:[facility], [address] [address] Support Name Relationship Address Phone PRINCE KAMARA, JOSHUA SOMMERS Unknown Unavailabl e Laboratory Report Ordering Provider Test Date Status JOSHUA QUEZADA MD 08/03/2012 13:37:00-0400 Final Obs # Observation Date Value ABNL Reference Status Pe rforming Location 1 LDL, (direct) 08/03/2012 21:07-0400 48 0-129 mg/dL Final LDL CHOLESTEROL REFERENCE RANGES(mg/dL) <100 OPTIMAL GOAL FOR HIGH RISK PATIENTS 100-129 NEAR OR ABOVE NORMAL 130-159 BORDERLINE HIGH 160-189 HIGH >189 VERY HIGH
--- OUTSIDE RECORDS SUMMARY | 2023-07-31 20:42 | External Medical Summary ---
Author Name PRINCE KAMARA Organization K01:[facility], [address] [address] Support Name Relationship Address Phone JOSHUA QUEZADA MD Unknown Unavailabl e Laboratory Report Ordering Provider Test Date Status JOSHUA QUEZADA MD 04/20/2012 14:00:00-0400 Final Obs # Observation Date Value ABNL Reference Status Pe rforming Location 1 HbA1C 04/20/2012 23:13-0400 7.2 H 3.4-6.4 % Final 2 Glucose, estimated average 04/20/2012 23:13-0400 160 H <126 MG/DL Final
--- OUTSIDE RECORDS SUMMARY | 2023-07-31 20:42 | External Medical Summary ---
Author Name Unknown Organization K01:[facility], [facility] [address] [address] Laboratory Report Ordering Provider Test Date Status JOSHUA QUEZADA MD 02/02/2014 14:45:00-0400 Final Obs # Observation Date Value ABNL Reference Status Pe rforming Location 1 ALT (Alanine aminotransferase) 02/02/2014 22:30-0400 21 10-50 U/L Final
--- OUTSIDE RECORDS SUMMARY | 2023-07-31 20:42 | External Medical Summary ---
Author Name Unknown Organization K01:[facility], [address] [address] Laboratory Report Ordering Provider Test Date Status JOSHUA QUEZADA MD 08/15/2014 15:11:00-0400 Final Obs # Observation Date Value ABNL Reference Status Pe rforming Location 1 HbA1C 08/16/2014 16:18-0400 7.7 H 4.0-6.4 % Final 2 Glucose, estimated average 08/16/2014 16:18-0400 174 H <126 MG/DL Final
--- OUTSIDE RECORDS SUMMARY | 2023-07-31 20:42 | External Medical Summary ---
Author Name PRINCE KAMARA Organization K01[facility], [address] [address] Support Name Relationship Address Phone JOSHUA QUEZADA MD Unknown Unavailabl e Laboratory Report Ordering Provider Test Date Status JOSHUA QUEZADA MD 08/03/2012 13:37:00-0400 Final Obs # Observation Date Value ABNL Reference Status Pe rforming Location 1 BUN 08/03/2012 21:07-0400 13 6-20 mg/dL Final 2 Creatinine 08/03/2012 21:07-0400 1.0 0.7-1.3 mg/dL Final GFR should be used to assess renal function. Plasma/Serum creatinine may not be able to properly reflect renal function in some cases.
--- OUTSIDE RECORDS SUMMARY | 2023-07-31 20:42 | External Medical Summary ---
Author Name Unknown Organization K01:[facility], [address] [address] Laboratory Report Ordering Provider Test Date Status JOSHUA QUEZADA MD 02/02/2014 14:45:00-0400 Final Obs # Observation Date Value ABNL Reference Status Pe rforming Location 1 HbA1C 02/03/2014 10: 6.7 H 3.4-6.4 % Final 2 Glucose, estimated average 02/03/2014 10: 146 H <126 MG/DL Final
--- OUTSIDE RECORDS SUMMARY | 2023-07-31 20:43 | External Medical Summary ---
Author Name Unknown Organization K01:[facility], [address] [id number] Support Name Relationship Address Phone JOSHUA QUEZADA MD PROV Unknown Unavailab le Laboratory Report Ordering Provider Test Date Status JOSHUA QUEZADA MD 03/13/2011 14:30-0400 Final Obs # Observation Date Value ABNL Reference Status Pe rforming Location 1 HbA1C 03/13/2011 23:02-0400 6.8 H 3.4-6.4 % Final 2 Glucose, estimated average 03/13/2011 23:02-0400 148 H <126 MG/DL Final
--- OUTSIDE RECORDS SUMMARY | 2023-07-31 20:43 | External Medical Summary ---
Author Name Unknown Organization K01:[facility], [address] [address] Support Name Relationship Address Phone JOSHUA QUEZADA MD PROV Unknown Unavailab le Laboratory Report Ordering Provider Test Date Status JOSHUA QUEZADA MD 03/13/2011 14:30-0400 Final Obs # Observation Date Value ABNL Reference Status Pe rforming Location 1 ALT (Alanine aminotransferase) 03/13/2011 22:54-0400 29 10-50 U/L Final
--- OUTSIDE RECORDS SUMMARY | 2023-07-31 20:43 | External Medical Summary ---
Author Name Unknown Organization K01:[facility], [address] [id number] Support Name Relationship Address Phone JOSHUA QUEZADA MD PROV Unknown Unavailab le Laboratory Report Ordering Provider Test Date Status JOSHUA QUEZADA MD 03/13/2011 14:30-0400 Final Obs # Observation Date Value ABNL Reference Status Pe rforming Location 1 LDL, Direct Measure 03/13/2011 22:54-0400 104 0-129 mg/dL Final
--- OUTSIDE RECORDS SUMMARY | 2023-07-31 20:43 | External Medical Summary ---
Author Name Unknown Organization [employer] Support Name Relationship Address Phone JOSHUA QUEAZDA MD PROV Unknown Unavailab le Laboratory Report Ordering Provider Test Date Status JOSHUA QUEZADA MD 09/10/2010 14:37-0500 F Obs # Observation Date Value ABNL Reference Status Pe rforming Location 1 PSA SCREENING 09/11/2010 02:58-0500 1.21 <4.1 ng/mL Final
--- OUTSIDE RECORDS SUMMARY | 2023-07-31 20:43 | External Medical Summary ---
Author Name PRINCE KAMARA Organization K01:[facility], [address] [address] Support Name Relationship Address Phone JOSHUA QUEZADA MD Unknown Unavailabl e Laboratory Report Ordering Provider Test Date Status JOSHUA QUEZADA MD 10/21/2011 14:08:00-0500 Final Obs # Observation Date Value ABNL Reference Status Pe rforming Location 1 ALBUMIN, RD URINE 10/22/2011 00:11-0500 <0.30 0-2 mg/dL Final 2 CREATININE, RD URINE 10/22/2011 00:11-0500 72 mg/dL Final 3 MICROALBUMIN RATIO 10/22/2011 00:11-0500 <4 <31 mg/g creat Final Normal: 0- 29 mg/g creatinine High: 30-300 mg/g creatinine Very High and Nephrotic: >300 mg/g creatinine
--- OUTSIDE RECORDS SUMMARY | 2023-07-31 20:43 | External Medical Summary ---
Author Name PRINCE KAMARA Organization K01:[facility], [address] [address] Support Name Relationship Address Phone JOSHUA QUEZADA MD Unknown Unavailabl e Laboratory Report Ordering Provider Test Date Status JOSHUA QUEZADA MD 10/21/2011 14:02:00-0500 Final Obs # Observation Date Value ABNL Reference Status Pe rforming Location 1 BUN 10/21/2011 23:22-0500 17 6-20 mg/dL Final 2 CREATININE 10/21/2011 23:22-0500 1.0 0.7-1.3 mg/dL Final GFR should be used to assess renal function. Plasma/Serum creatinine may not be able to properly reflect renal function in some cases.
--- OUTSIDE RECORDS SUMMARY | 2023-07-31 20:43 | External Medical Summary ---
Author Name PRINCE KAMARA Organization K01:[facility], [address] [address] Support Name Relationship Address Phone JOSHUA QUEZADA MD Unknown Unavailabl e Laboratory Report Ordering Provider Test Date Status JOSHUA QUEZADA MD 04/20/2012 14:00:00-0400 Final Obs # Observation Date Value ABNL Reference Status Pe rforming Location 1 BUN 04/20/2012 22:24-0400 16 6-20 mg/dL Final 2 Creatinine 04/20/2012 22:24-0400 1.1 0.7-1.3 mg/dL Final GFR should be used to assess renal function. Plasma/Serum creatinine may not be able to properly reflect renal function in some cases.
--- OUTSIDE RECORDS SUMMARY | 2023-07-31 20:43 | External Medical Summary ---
Author Name PRINCE KAMARA Organization K01:[facility], [facility] [address] [address] Support Name Relationship Address Phone PRINCE KAMARA, JOSHUA SOMMERS Unknown Unavailabl e Laboratory Report Ordering Provider Test Date Status JOSHUA QUEZADA MD 04/20/2012 14:00:00-0400 Final Obs # Observation Date Value ABNL Reference Status Pe rforming Location 1 ALT (Alanine aminotransferase) 04/20/2012 22:24-0400 19 10-50 U/L Final
--- OUTSIDE RECORDS SUMMARY | 2023-07-31 20:43 | External Medical Summary ---
Author Name Unknown Organization [employer] [facility] tem Support Name Relationship Address Phone JOSHUA QUEZADA MD PROV Unknown Unavailab le Laboratory Report Ordering Provider Test Date Status JOSHUA QUEZADA MD 09/10/2010 14:37-0500 F Obs # Observation Date Value ABNL Reference Status Pe rforming Location 1 Hgb A1c Fr Bld 09/11/2010 02:15-0500 6.4 3.4-6.4 % Final 2 Mean Glucose Bld gHb Est-mCnc 09/11/2010 02:15-0500 137 H <126 MG/DL Final
--- OUTSIDE RECORDS SUMMARY | 2023-07-31 20:43 | External Medical Summary ---
Author Name PRINCE KAMARA Organization K01:[facility], [address] [facility] [address] Support Name Relationship Address Phone JOSHUA QUEZADA MD [facility] Unknown Unavailabl e Laboratory Report Ordering Provider Test Date Status JOSHUA QUEZADA MD 10/21/2011 14:02:00-0500 Final Obs # Observation Date Value ABNL Reference Status Pe rforming Location 1 HEMOGLOBIN, A1C 10/21/2011 22:57-0500 6.7 H 3.4-6.4 % Final 2 EST AVG GLUCOSE 10/21/2011 22:57-0500 146 H <126 MG/DL Final
--- OUTSIDE RECORDS SUMMARY | 2023-07-31 20:43 | External Medical Summary ---
Author Name Unknown Organization K01:[facility], [address] [facility] [address] Support Name Relationship Address Phone JOSHUA QUEZADA MD PROV Unknown Unavailab le Laboratory Report Ordering Provider Test Date Status JOSHUA QUEZADA MD 03/13/2011 14:30-0400 Final Obs # Observation Date Value ABNL Reference Status Pe rforming Location 1 BUN 03/13/2011 22:54-0400 17 6-20 mg/dL Final 2 Creatinine 03/13/2011 22:54-0400 1.0 0.7-1.5 mg/dL Final 3 Sodium 03/13/2011 22:54-0400 137 135-146 mmol/L Final 4 Potassium 03/13/2011 22:54-0400 4.2 3.5-5.1 mmol/L Final 5 Cl 03/13/2011 22:54-0400 100 98-111 mmol/L Final 6 CO2 03/13/2011 22:54-0400 28 22-32 mmol/L Final 7 Glucose 03/13/2011 22:54-0400 97 70-120 mg/dL Final 8 Anion gap 03/13/2011 22:54-0400 9 7-15 mmol/L Final 9 Calcium 03/13/2011 22:54-0400 9.7 8.3-10.5 mg/dL Final 10 GFR / 1.73 sq M.predicted 03/13/2011 22:54-0400 >60.0 >60 mL/min Final
--- OUTSIDE RECORDS SUMMARY | 2023-07-31 20:43 | External Medical Summary ---
Author Name Unknown Organization [employer] [facility] tem Support Name Relationship Address Phone JOSHUA QUEZADA MD PROV Unknown Unavailab le Laboratory Report Ordering Provider Test Date Status JOSHUA QUEZADA MD 09/10/2010 14:37-0500 F Obs # Observation Date Value ABNL Reference Status Pe rforming Location 1 LDLc SerPl Direct Assay-nc 09/11/2010 01:59-0500 69 0-129 mg/dL Final
--- OUTSIDE RECORDS SUMMARY | 2023-07-31 20:43 | External Medical Summary ---
Author Name PRINCE KAMARA Organization K01:[facility], [address] [address] Support Name Relationship Address Phone PRINCE KAMARA, JOSHUA SOMMERS Unknown Unavailabl e Laboratory Report Ordering Provider Test Date Status JOSHUA QUEZADA MD 10/21/2011 14:02:00-0500 Final Obs # Observation Date Value ABNL Reference Status Pe rforming Location 1 LDL (DIRECT MEASURE) 10/21/2011 23:22-0500 61 0-129 mg/dL Final LDL CHOLESTEROL REFERENCE RANGES(md/dL) <100 OPTIMAL GOAL FOR HIGH RISK PATIENTS 100-129 NEAR OR ABOVE NORMAL 130-159 BORDERLINE HIGH 160-189 HIGH >189 VERY HIGH
--- OUTSIDE RECORDS SUMMARY | 2023-07-31 20:43 | External Medical Summary ---
Author Name Unknown Organization [employer] [facility] tem Support Name Relationship Address Phone JOSHUA QUEZADA MD PROV Unknown Unavailab le Laboratory Report Ordering Provider Test Date Status JOSHUA QEUZADA MD 09/10/2010 14:37-0500 F Obs # Observation Date Value ABNL Reference Status Pe rforming Location 1 BUN [facility] 09/11/2010 01:59-0500 15 6-20 mg/dL Final 2 Creat SerPl-mCnc 09/11/2010 01:59-0500 1.1 0.7-1.5 mg/dL Final 3 Sodium SerPl-sCnc 09/11/2010 01:59-0500 137 135-146 mmol/L Final 4 Potassium SerPl-sCnc 09/11/2010 01:59-0500 3.7 3.5-5.1 mmol/L Final 5 Chloride SerPl-sCnc 09/11/2010 01:59-0500 98 98-111 mmol/L Final 6 CO2 SerPl-sCnc 09/11/2010 01:59-0500 31 22-32 mmol/L Final 7 Glucose SerPl-nc 09/11/2010 01:59-0500 122 H 70-120 mg/dL Final 8 Anion Gap SerPl-sCnc 09/11/2010 01:59-0500 8 7-15 mEq/L Final 9 Calcium SerPl-mCnc 09/11/2010 01:59-0500 9.1 8.3-10.5 mg/dL Final 10 Pred GFR SerPl MDRD-vRate 09/11/2010 01:59-0500 >60.0 >60 mL/min Final
--- OUTSIDE RECORDS SUMMARY | 2023-07-31 20:43 | External Medical Summary ---
Author Name PRINCE KAMARA Organization K01:[facility], [facility] [address] [place] [address] Support Name Relationship Address Phone PRINCE KAMARA, JOSHUA SOMMERS Unknown Unavailabl e Laboratory Report Ordering Provider Test Date Status JOSHUA QUEZADA MD 10/21/2011 14:02:00-0500 Final Obs # Observation Date Value ABNL Reference Status Pe rforming Location 1 ALT (Alanine aminotransferase) 10/21/2011 23:22-0500 23 10-50 U/L Final
[2023-07-31] MEDS: POTASSIUM CHLORIDE CRTAB 20 MEQ TABCR PO SCH (21:22)
[2023-08-01 05:59] LABS: Hematocrit (blood only) 31.4 % (42.0-52.0); Hemoglobin 10.2 g/dl (14.0-18.0); Mean Corpuscular Hemoglobin 28.3 pg (25.0-34.0); Mean Corpuscular Hgb Conc 32.5 g/dL (32.0-36.0); Mean Corpuscular Volume 87.2 fL (80.0-100.0); Mean Platelet Volume 10.4 fL (9.4-12.4); Platelet Count 341 K/uL (130-400); RDW Coefficient of Variation 14.2 % (11.5-14.5); RDW Standard Deviation 45.1 fL (36.4-46.3); White Blood Count 15.74 K/ul (4.8-10.8)
[2023-08-01 06:09] LABS: BUN Creatinine Ratio 31.1 (10-20); Calcium 8.1 mg/dl (8.6-10.3); Creatinine Clr Calc Pharmacy 28.6 ml/min; Est GFR (African American) 34.4 ml/min; Est GFR (Non-African American) 29.6 ml/min; Magnesium 1.8 mg/dl (1.7-2.4); Phosphorus 3.9 mg/dl (2.5-4.9); Potassium 4.3 mmol/L (3.5-5.1)
--- NOTE | 2023-08-01 07:56 | Hospitalist Progress Note ---
Date of Service August 01, 2023 Assessment & Plan (1) DKA (diabetic ketoacidosis): (2) High anion gap metabolic acidosis: (3) Metabolic encephalopathy: (4) Paroxysmal atrial fibrillation: (5) CESAR (acute kidney injury): (6) Elevated troponin: (7) Acute electrocardiogram changes: (8) Chronic heart failure with preserved ejection fraction (HFpEF): (9) Severe aortic stenosis: Plan This is a critically ill 77-year-old male who has a significant past medical history of medication noncompliance, T2DM, PAF anticoagulated on Eliquis, chronic HFpEF, moderate to severe aortic stenosis, HTN, HLD and BPH who presents to ED via EMS secondary to altered mental status. Sepsis secondary to Bacteremia, UTI Serratia marescens In the setting of indwelling Yee catheter pt with initial tachycardia, leukocytosis, initial hypotension, lactic acidosis tachycardia improved after fluid administration/IV lopressor for afib blood/urine culture obtained empirically tx with vanco/cefepime in ED CT head/CT a/p obtained lyme screen negative anaplasma, babesia ordered - pt recently dx with anaplasma and started on tx in May, uncertain if he completed tx Urine and Blood culture: Serratia marescens repeat blood culture: Negative continue IV Cefepime ID consulted-recommend oral Bactrim- contraindicated in light of acute kidney injury Recommended Levaquin-contraindicated in light of prolonged QT ID recommends last day of antibiotic August 03, 2023 Recommend continue IV antibiotics till then DKA in the setting of Sepsis Metabolic encephalopathy Resolved transitioned to Glargine + Novolog continue to monitor closely CESAR Likely from prerenal, sepsis baseline cr 0.8 presents with BUN/CR 125/3.28 creatinine down to 2 Nephrology service consulted and following closely Pt received IVF, IV lasix prn Atrial Fibrillation in RVR In the setting of sepsis has history of a fib initially presented in RVR, converted after IVF and IV metoprolol uncertain if compliant with eliquis required Cardioversion in the ICU converted to sinus rhythm Also required amiodarone drip SR now Continue metoprolol tartrate 25 mg twice daily Eliquis 5 mg twice a day Elevated troponin Acute EKG changes obtained echo per zipper setter chainstitch, this was discussed with legal assistant cycled trops, likely in setting of critical illness EKG 73 NSR PAC, RBBB, LAFB, St t wave changes diffusely likely demand ischemia trop 100, 200, 100s Chronic HFpEF Severe Aortic Stenosis HTN HLD daily weights/strict intake and output recent echo: 04/2023 EF 50-55%, moderate concentric LVH, moderate to severe aortic stenosis, moderate mitral calcification, RV normal in size and function appears euvolemic at this time BPH with GORDON yee in place [facility] urology follow pt, yee exchanged in ED continue yee DVT ppx: Eliquis Initially FULL CODE - as per discussion with on admission -> Currently DNR/DNI - changed by certifed refrigeration operator after discussing w/ fam. PCP: Elvie Maria Disposition Pending, Office of ageing involved PT/OT evaluation Admission and Anticipated Discharge Date Admission Date: July 24, 2023 Subjective Follow-up for UTI, bacteremia, CESAR, etc. Laying in bed in NAD. No fever, chills, chest pain, palpitation, shortness of breath Denies abdominal pain, nausea or vomiting. He is eating well, has good appetite. Nephrology following closely CM and Office of ageing involved. Review of Systems Review of Systems: All systems reviewed & are unremarkable except as noted in Subjective Physical Exam Physical Exam: General- oriented x 3, not in distress, speaks in sentences with no effort or accessory muscle use Eyes- anicteric Neck- no JVD Lungs- clear breath sounds bilaterally, + mild b/l basilar crackles Heart- normal rate, regular rhythm; no murmurs Abdomen- normal bowel sounds, nondistended, soft, nontender Extremities- no pretibial edema, no calf tenderness Neuro- alert, oriented x 3; no gross focal neurologic deficits Skin- warm & dry Results & Data Results & Data Vital Signs (Past 12 Hours) Vital Signs Temp Pulse Pulse Resp BP Pulse Ox O2 Del Method 08/01/23 07:17 61 08/01/23 03:05 36.6 C 61 16 112/60 97 Room Air 07/31/23 23:23 71 07/31/23 22:54 36.6 C 67 14 133/59 L 95 Room Air Laboratory Results 08/01/23 08/01/23 08/01/23 Range/Units 07:14 05:37 05:37 WBC 15.74 H (4.8-10.8) K/ul RBC 3.60 L (4.70-6.10) M/uL Hgb 10.2 L (14.0-18.0) g/dl Hct 31.4 L (42.0-52.0) % MCV 87.2 (80.0-100.0) fL MCH 28.3 (25.0-34.0) pg MCHC 32.5 (32.0-36.0) g/dL RDW Std Deviation 45.1 (36.4-46.3) fL RDW Coeff of Scott 14.2 (11.5-14.5) % Plt Count 341 (130-400) K/uL MPV 10.4 (9.4-12.4) fL Sodium 136 (136-145) mmol/L Potassium 4.3 (3.5-5.1) mmol/L Chloride 100 (98-107) mmol/L Carbon Dioxide 28 (21-32) mmol/L Anion Gap 8 (3-11) BUN 65 H (6-23) mg/dl Creatinine 2.09 H D (0.6-1.4) mg/dl Est Cr Clr Drug Dosing 28.6 ml/min Est GFR ( Amer) 34.4 ml/min Est GFR (Non-Af Amer) 29.6 ml/min BUN/Creatinine Ratio 31.1 H (10-20) Glucose 172 H (70-99(Fasting)) mg/dl POC Glucose 151 H (70-99) mg/dl Calcium 8.1 L (8.6-10.3) mg/dl Phosphorus 3.9 (2.5-4.9) mg/dl Magnesium 1.8 (1.7-2.4) mg/dl 07/31/23 07/31/23 07/31/23 Range/Units 20:33 16:23 11:13 WBC (4.8-10.8) K/ul RBC (4.70-6.10) M/uL Hgb (14.0-18.0) g/dl Hct (42.0-52.0) % MCV (80.0-100.0) fL MCH (25.0-34.0) pg MCHC (32.0-36.0) g/dL RDW Std Deviation (36.4-46.3) fL RDW Coeff of Scott (11.5-14.5) % Plt Count (130-400) K/uL MPV (9.4-12.4) fL Sodium (136-145) mmol/L Potassium (3.5-5.1) mmol/L Chloride (98-107) mmol/L Carbon Dioxide (21-32) mmol/L Anion Gap (3-11) BUN (6-23) mg/dl Creatinine (0.6-1.4) mg/dl Est Cr Clr Drug Dosing ml/min Est GFR ( Amer) ml/min Est GFR (Non-Af Amer) ml/min BUN/Creatinine Ratio (10-20) Glucose (70-99(Fasting)) mg/dl POC Glucose 146 H 134 H 229 H (70-99) mg/dl Calcium (8.6-10.3) mg/dl Phosphorus (2.5-4.9) mg/dl Magnesium (1.7-2.4) mg/dl Medications Administered Current Inpatient Medications Acetaminophen (Acetaminophen 325 Mg Tab) 650 mg PO QID PRN PRN Reason: pain/fever Stop: 08/24/23 23:06 Apixaban (Apixaban 5 Mg Tablet) 5 mg PO BID [facility] Stop: 08/25/23 20:59 Last Admin: 07/31/23 21:22 Dose: 5 mg Dextrose (Dextrose 50% 50 Ml Syringe) 25 - 50 ml IV UD PRN; Protocol PRN Reason: Hypoglycemia Protocol Stop: 08/23/23 15:25 Furosemide (Furosemide Inj 20 Mg/2 Ml Vial) 20 mg IV Q8H [facility] Stop: 08/27/23 11:59 Last Admin: 07/29/23 12:12 Dose: 20 mg Furosemide (Furosemide Inj 20 Mg/2 Ml Vial) 10 mg IV TID [facility] Stop: 08/30/23 08:59 Last Admin: 07/31/23 21:23 Dose: 10 mg Glucagon (Glucagon For Inj 1 Mg Vial) 1 mg SQ UD PRN; Protocol PRN Reason: Hypoglycemia Protocol Stop: 08/23/23 15:25 Glucose (Glucose 40% Gel 15 Gm Tube) 15 - 30 gm PO UD PRN; Protocol PRN Reason: Hypoglycemia Protocol Stop: 08/23/23 15:25 Glucose (Glucose 10 Tab/Tube) 4 - 8 tab PO UD PRN; Protocol PRN Reason: Hypoglycemia Treatment Stop: 08/23/23 15:25 Cefepime HCl 1,000 mg/ Syringe 10 mls @ 5 mls/min IV Q12H [facility]; Protocol Stop: 08/03/23 11:59 Last Admin: 07/31/23 23:01 Dose: 5 mls/min Insulin Aspart (Insulin Aspart Per Unit Charge) 0 units SC DAILY@0730 [facility] Stop: 08/29/23 07:29 Last Admin: 07/31/23 08:10 Dose: 19 units Insulin Aspart (Insulin Aspart Per Unit Charge) 0 units SC DAILY@1130 [facility]; Protocol Stop: 08/30/23 11:29 Last Admin: 07/31/23 11:43 Dose: 17 units Insulin Aspart (Insulin Aspart Per Unit Charge) 0 units SC BID@1630,2100 [facility]; Protocol Stop: 08/28/23 11:29 Last Admin: 07/31/23 21:22 Dose: 1 units Insulin Glargine (Lantus Per Unit Charge) 30 units SC DAILY [facility]; Protocol Stop: 08/27/23 20:59 Last Admin: 07/31/23 08:10 Dose: 30 units Metoprolol Tartrate (Metoprolol Tartrate 25 Mg Tab) 25 mg PO BID [facility] Stop: 08/24/23 08:59 Last Admin: 07/31/23 21:22 Dose: 25 mg Metoprolol Tartrate (Metoprolol Tartrate 1 Mg/Ml Vial) 5 mg IV Q4 PRN PRN Reason: HR>120 Stop: 08/24/23 11:59 Miscellaneous (Carbohydrates For Hypoglycemia ) 15 - 30 gm PO UD PRN PRN Reason: Hypoglycemia Protocol Stop: 08/23/23 15:25 Last Admin: 07/28/23 20:00 Dose: 15 gm Miscellaneous Information (Pharmacy Glycemic Mgmt Consult) 1 each N/A UD PRN PRN Reason: Consult Stop: 08/23/23 19:41 Pantoprazole Sodium (Pantoprazole 40 Mg Tab) 40 mg PO DAILY [facility] Stop: 08/24/23 08:59 Last Admin: 07/31/23 08:04 Dose: 40 mg Potassium Chloride (Potassium Chloride Crtab 20 Meq Tabcr) 20 meq PO BID [facility] Stop: 08/27/23 11:59 Last Admin: 07/31/23 21:22 Dose: 20 meq Tramadol HCl (Tramadol Hcl 50 Mg Tablet) 25 - 50 mg PO Q4H PRN PRN Reason: Pain Stop: 08/25/23 05:21 Last Admin: 07/31/23 23:01 Dose: 50 mg
[2023-08-01] MEDS: INSULIN ASPART PER UNIT CHARGE SC SCH ×4 (08:49→20:30)
[2023-08-01] MEDS: LANTUS PER UNIT CHARGE SC SCH (08:50)
[2023-08-01] MEDS: APIXABAN 5 MG TABLET PO SCH ×2 (08:50→19:57)
[2023-08-01] MEDS: PANTOprazole 40 MG TAB PO SCH (08:50)
[2023-08-01] MEDS: METOPROLOL TARTRATE 25 MG TAB PO SCH ×2 (08:50→19:57)
[2023-08-01] MEDS: POTASSIUM CHLORIDE CRTAB 20 MEQ TABCR PO SCH ×2 (08:50→19:58)
[2023-08-01] MEDS: FUROSEMIDE INJ 20 MG/2 ML VIAL IV SCH ×3 (08:50→19:58)
[2023-08-01] MEDS: CEFEPIME 1,000 MG in SYRINGE 0 ML IV SCH ×2 (11:48→23:28)
--- NOTE | 2023-08-01 12:52 | Nephrology Progress Note ---
Date of Service August 01, 2023 Assessment & Plan (1) CESAR (acute kidney injury): Plan: today basically plateau'd stage 3 nonoliguric CESAR from ischemic ATN in setting of gram-negative bacteremia; had improved initially then stalled w/ resuming diuretics. Creatinine on admission was 3.2 from a normal baseline of 1.0. today cr increased from 2.4 yesterday to 2.6 today w/ massive polyuria, suggestive of recovery phase of ATN in setting of diuretics. Patient is on antibiotics. Electrolytes are stable no indication for dialysis. DKA has resolved; no longer on insulin gtt. On Lasix 80/40 as an outpatient but not likely he was taking as prescribed. -Avoid hypotension. Avoid contrast or other nephrotoxins. >> intake and outtake have not always been accurately charted and nursing aware/working on this Standing weight daily -- Contine with lasix and K at lower doses >> 10 mg tid lasix and 20 mEq bid K as his renal functions continue to improve. -Continue strict intake and outtake and daily standing weight to help eval volume status -for now no FR >> history of obstructive uropathy and failed or near failed voiding trial prior to admission; so would not remove yee unles urology OK's (2) Bacteremia: Plan: arriaga sensitive Serratia marescens bacteremia w/ presume source >> 07/26 cxs negative at 48 hrs and not further updated today so far. Continue cefepime renally dosed for current GFR; plan to change to bactrim at d/c per ID Admission and Anticipated Discharge Date Admission Date: July 24, 2023 Subjective Follow-up for UTI, bacteremia, CESAR, etc. No fever, chills, chest pain, palpitation, shortness of breath Denies abdominal pain, nausea or vomiting. He is eating well, has good appetite. Good urineoutput. Review of Systems Review of Systems: All systems reviewed & are unremarkable except as noted in HPI & below Physical Exam Physical Exam: Constitutional:L well developed, we ll nourished and + frail appearing; no acute distress Eyes: EOM intact bilater ally ENMT: Ears: + hearing im pairment; no exter nal ear abnormalit y Nose: no registered pharmacist al nose abnormalit y Mouth: + dry or al mucous membrane s Neck: no nuchal rigidity Respiratory: normal respiratory effort and + labo red breathing (Sli ghtly more promine nt today) Auscult ation: + diminishe d lung sounds and + crackles (bibasi lar) Cardiovascular:L Rate/Rhythm: regul ar rate and regula r rhythm Extremit ies: + edema (2+ B L ankle) Gastrointestinal ( Abdomen): Inspection/Auscult ation: normal rufus l sounds Percussi on/Palpation: abdo men soft; abdomen nontender Musculoskeletal: Extremities: stren gth 5/5 throughout Skin: no rashes, warm an d dry Results & Data Vital Signs (Past 12 Hours) Vital Signs Temp Pulse Pulse Resp BP Pulse Ox O2 Del Method 08/01/23 12:19 36.6 C 70 24 107/53 L 94 Room Air 08/01/23 07:59 36.6 C 64 18 122/70 97 Room Air 08/01/23 07:17 61 08/01/23 03:05 36.6 C 61 16 112/60 97 Room Air Laboratory Results 08/01/23 05:37 08/01/23 05:37
[2023-08-01] MEDS: traMADol HCL 50 MG TABLET PO PRN (23:28)
[2023-08-02 07:36] LABS: Hematocrit (blood only) 32.1 % (42.0-52.0); Hemoglobin 10.4 g/dl (14.0-18.0); Mean Corpuscular Hemoglobin 28.6 pg (25.0-34.0); Mean Corpuscular Hgb Conc 32.4 g/dL (32.0-36.0); Mean Corpuscular Volume 88.2 fL (80.0-100.0); Mean Platelet Volume 10.4 fL (9.4-12.4); Platelet Count 372 K/uL (130-400); RDW Coefficient of Variation 14.2 % (11.5-14.5); RDW Standard Deviation 45.9 fL (36.4-46.3); Red Blood Count 3.64 M/uL (4.70-6.10); White Blood Count 14.46 K/ul (4.8-10.8)
[2023-08-02 07:48] LABS: BUN Creatinine Ratio 29.1 (10-20); Calcium 8.3 mg/dl (8.6-10.3); Creatinine Clr Calc Pharmacy 30.5 ml/min; Est GFR (African American) 37.1 ml/min; Magnesium 1.8 mg/dl (1.7-2.4); Phosphorus 4.1 mg/dl (2.5-4.9); Potassium 4.2 mmol/L (3.5-5.1)
[2023-08-02] MEDS: APIXABAN 5 MG TABLET PO SCH ×2 (08:52→20:20)
[2023-08-02] MEDS: METOPROLOL TARTRATE 25 MG TAB PO SCH ×2 (08:52→20:20)
[2023-08-02] MEDS: PANTOprazole 40 MG TAB PO SCH (08:53)
[2023-08-02] MEDS: FUROSEMIDE INJ 20 MG/2 ML VIAL IV SCH ×3 (08:53→20:20)
[2023-08-02] MEDS: POTASSIUM CHLORIDE CRTAB 20 MEQ TABCR PO SCH ×2 (08:53→20:20)
[2023-08-02] MEDS: INSULIN ASPART PER UNIT CHARGE SC SCH ×4 (09:00→20:20)
[2023-08-02] MEDS: LANTUS PER UNIT CHARGE SC SCH (09:00)
--- NOTE | 2023-08-02 10:58 | Hospitalist Progress Note ---
Date of Service August 02, 2023 Assessment & Plan (1) DKA (diabetic ketoacidosis): (2) High anion gap metabolic acidosis: (3) Metabolic encephalopathy: (4) Paroxysmal atrial fibrillation: (5) CESAR (acute kidney injury): (6) Elevated troponin: (7) Acute electrocardiogram changes: (8) Chronic heart failure with preserved ejection fraction (HFpEF): (9) Severe aortic stenosis: Plan This is a critically ill 77-year-old male who has a significant past medical history of medication noncompliance, T2DM, PAF anticoagulated on Eliquis, chronic HFpEF, moderate to severe aortic stenosis, HTN, HLD and BPH who presents to ED via EMS secondary to altered mental status. Sepsis secondary to Bacteremia, UTI Serratia marescens In the setting of indwelling Yee catheter pt with initial tachycardia, leukocytosis, initial hypotension, lactic acidosis tachycardia improved after fluid administration/IV lopressor for afib blood/urine culture obtained empirically tx with vanco/cefepime in ED CT head/CT a/p obtained lyme screen negative anaplasma, babesia ordered - pt recently dx with anaplasma and started on tx in May, uncertain if he completed tx Urine and Blood culture: Serratia marescens repeat blood culture: Negative continue IV Cefepime ID consulted-recommend oral Bactrim- contraindicated in light of acute kidney injury Recommended Levaquin-contraindicated in light of prolonged QT ID recommends last day of antibiotic August 03, 2023 Recommend continue IV antibiotics till then DKA in the setting of Sepsis Metabolic encephalopathy Resolved transitioned to Glargine + Novolog continue to monitor closely CESAR Likely from prerenal, sepsis baseline cr 0.8 presents with BUN/CR 125/3.28 creatinine down to 2 Nephrology service consulted and following closely Pt received IVF, IV lasix prn Atrial Fibrillation in RVR In the setting of sepsis has history of a fib initially presented in RVR, converted after IVF and IV metoprolol uncertain if compliant with eliquis required Cardioversion in the ICU converted to sinus rhythm Also required amiodarone drip SR now Continue metoprolol tartrate 25 mg twice daily Eliquis 5 mg twice a day Elevated troponin Acute EKG changes obtained echo per media technician, this was discussed with talent coordinator cycled trops, likely in setting of critical illness EKG 73 NSR PAC, RBBB, LAFB, St t wave changes diffusely likely demand ischemia trop 100, 200, 100s Chronic HFpEF Severe Aortic Stenosis HTN HLD daily weights/strict intake and output recent echo: 04/2023 EF 50-55%, moderate concentric LVH, moderate to severe aortic stenosis, moderate mitral calcification, RV normal in size and function appears euvolemic at this time BPH with GORDON yee in place [facility] follow pt, yee exchanged in ED continue yee DVT ppx: Gera Initially FULL CODE - as per discussion with on admission -> Currently DNR/DNI - changed by cigar making supervisor after discussing further PCP: Elvie Maria Disposition Pending, Office of ageing involved PT/OT evaluation Admission and Anticipated Discharge Date Admission Date: July 24, 2023 Subjective Follow-up for UTI, bacteremia, CESAR, etc. Laying in bed in NAD. Reports feeling well today. He is laying flat in bed on RA. No fever, chills, chest pain, palpitation, shortness of breath Denies abdominal pain, nausea or vomiting. He is eating well, has good appetite. Nephrology following closely CM and Office of ageing involved. Review of Systems Review of Systems: All systems reviewed & are unremarkable except as noted in Subjective Physical Exam Physical Exam: General- oriented x 3, not in distress, speaks in sentences with no effort or accessory muscle use Eyes- anicteric Neck- no JVD Lungs- clear breath sounds bilaterally, no wheezing Heart- normal rate, regular rhythm; no murmurs Abdomen- normal bowel sounds, nondistended, soft, nontender Extremities- no pretibial edema, no calf tenderness Neuro- alert, oriented x 3; no gross focal neurologic deficits Skin- warm & dry Results & Data Results & Data Vital Signs (Past 12 Hours) Vital Signs Temp Pulse Pulse Resp BP Pulse Ox O2 Del Method 08/02/23 07:57 36.6 C 60 16 127/70 94 Room Air 08/02/23 07:46 57 L 08/02/23 03:16 36.6 C 60 18 147/83 H 95 Room Air 08/01/23 23:25 36.8 C 63 18 127/68 94 Room Air 08/01/23 23:20 66 Laboratory Results 08/02/23 08/02/23 08/02/23 Range/Units 07:24 06:47 06:47 WBC 14.46 H (4.8-10.8) K/ul RBC 3.64 L (4.70-6.10) M/uL Hgb 10.4 L (14.0-18.0) g/dl Hct 32.1 L (42.0-52.0) % MCV 88.2 (80.0-100.0) fL MCH 28.6 (25.0-34.0) pg MCHC 32.4 (32.0-36.0) g/dL RDW Std Deviation 45.9 (36.4-46.3) fL RDW Coeff of Scott 14.2 (11.5-14.5) % Plt Count 372 (130-400) K/uL MPV 10.4 (9.4-12.4) fL Sodium 138 (136-145) mmol/L Potassium 4.2 (3.5-5.1) mmol/L Chloride 100 (98-107) mmol/L Carbon Dioxide 31 (21-32) mmol/L Anion Gap 7 (3-11) BUN 57 H (6-23) mg/dl Creatinine 1.96 H (0.6-1.4) mg/dl Est Cr Clr Drug Dosing 30.5 ml/min Est GFR ( Amer) 37.1 ml/min Est GFR (Non-Af Amer) 32.0 ml/min BUN/Creatinine Ratio 29.1 H (10-20) Glucose 131 H (70-99(Fasting)) mg/dl POC Glucose 125 H (70-99) mg/dl Calcium 8.3 L (8.6-10.3) mg/dl Phosphorus 4.1 (2.5-4.9) mg/dl Magnesium 1.8 (1.7-2.4) mg/dl 08/01/23 08/01/23 08/01/23 Range/Units 20:11 16:38 11:08 WBC (4.8-10.8) K/ul RBC (4.70-6.10) M/uL Hgb (14.0-18.0) g/dl Hct (42.0-52.0) % MCV (80.0-100.0) fL MCH (25.0-34.0) pg MCHC (32.0-36.0) g/dL RDW Std Deviation (36.4-46.3) fL RDW Coeff of Scott (11.5-14.5) % Plt Count (130-400) K/uL MPV (9.4-12.4) fL Sodium (136-145) mmol/L Potassium (3.5-5.1) mmol/L Chloride (98-107) mmol/L Carbon Dioxide (21-32) mmol/L Anion Gap (3-11) BUN (6-23) mg/dl Creatinine (0.6-1.4) mg/dl Est Cr Clr Drug Dosing ml/min Est GFR ( Amer) ml/min Est GFR (Non-Af Amer) ml/min BUN/Creatinine Ratio (10-20) Glucose (70-99(Fasting)) mg/dl POC Glucose 93 83 168 H (70-99) mg/dl Calcium (8.6-10.3) mg/dl Phosphorus (2.5-4.9) mg/dl Magnesium (1.7-2.4) mg/dl Medications Administered Current Inpatient Medications Acetaminophen (Acetaminophen 325 Mg Tab) 650 mg PO QID PRN PRN Reason: pain/fever Stop: 08/24/23 23:06 Apixaban (Apixaban 5 Mg Tablet) 5 mg PO BID [facility] Stop: 08/25/23 20:59 Last Admin: 08/02/23 08:52 Dose: 5 mg Dextrose (Dextrose 50% 50 Ml Syringe) 25 - 50 ml IV UD PRN; Protocol PRN Reason: Hypoglycemia Protocol Stop: 08/23/23 15:25 Furosemide (Furosemide Inj 20 Mg/2 Ml Vial) 20 mg IV Q8H [facility] Stop: 08/27/23 11:59 Last Admin: 07/29/23 12:12 Dose: 20 mg Furosemide (Furosemide Inj 20 Mg/2 Ml Vial) 10 mg IV TID [facility] Stop: 08/30/23 08:59 Last Admin: 08/02/23 08:53 Dose: 10 mg Glucagon (Glucagon For Inj 1 Mg Vial) 1 mg SQ UD PRN; Protocol PRN Reason: Hypoglycemia Protocol Stop: 08/23/23 15:25 Glucose (Glucose 40% Gel 15 Gm Tube) 15 - 30 gm PO UD PRN; Protocol PRN Reason: Hypoglycemia Protocol Stop: 08/23/23 15:25 Glucose (Glucose 10 Tab/Tube) 4 - 8 tab PO UD PRN; Protocol PRN Reason: Hypoglycemia Treatment Stop: 08/23/23 15:25 Cefepime HCl 1,000 mg/ Syringe 10 mls @ 5 mls/min IV Q12H [facility]; Protocol Stop: 08/03/23 11:59 Last Admin: 08/01/23 23:28 Dose: 5 mls/min Insulin Aspart (Insulin Aspart Per Unit Charge) 0 units SC DAILY@0730 [facility] Stop: 08/29/23 07:29 Last Admin: 08/02/23 09:00 Dose: 19 units Insulin Aspart (Insulin Aspart Per Unit Charge) 0 units SC DAILY@1130 [facility]; Protocol Stop: 08/30/23 11:29 Last Admin: 08/01/23 11:47 Dose: 15 units Insulin Aspart (Insulin Aspart Per Unit Charge) 0 units SC BID@1630,2100 [facility]; Protocol Stop: 08/28/23 11:29 Last Admin: 08/01/23 20:30 Dose: Not Given Insulin Glargine (Lantus Per Unit Charge) 30 units SC DAILY [facility]; Protocol Stop: 08/27/23 20:59 Last Admin: 08/02/23 09:00 Dose: 30 units Metoprolol Tartrate (Metoprolol Tartrate 25 Mg Tab) 25 mg PO BID [facility] Stop: 08/24/23 08:59 Last Admin: 08/02/23 08:52 Dose: 25 mg Metoprolol Tartrate (Metoprolol Tartrate 1 Mg/Ml Vial) 5 mg IV Q4 PRN PRN Reason: HR>120 Stop: 08/24/23 11:59 Miscellaneous (Carbohydrates For Hypoglycemia ) 15 - 30 gm PO UD PRN PRN Reason: Hypoglycemia Protocol Stop: 08/23/23 15:25 Last Admin: 07/28/23 20:00 Dose: 15 gm Miscellaneous Information (Pharmacy Glycemic Mgmt Consult) 1 each N/A UD PRN PRN Reason: Consult Stop: 08/23/23 19:41 Pantoprazole Sodium (Pantoprazole 40 Mg Tab) 40 mg PO DAILY [facility] Stop: 08/24/23 08:59 Last Admin: 08/02/23 08:53 Dose: 40 mg Potassium Chloride (Potassium Chloride Crtab 20 Meq Tabcr) 20 meq PO BID [facility] Stop: 08/27/23 11:59 Last Admin: 08/02/23 08:53 Dose: 20 meq Tramadol HCl (Tramadol Hcl 50 Mg Tablet) 25 - 50 mg PO Q4H PRN PRN Reason: Pain Stop: 08/25/23 05:21 Last Admin: 08/01/23 23:28 Dose: 50 mg
[2023-08-02] MEDS: CEFEPIME 1,000 MG in SYRINGE 0 ML IV SCH ×2 (11:40→23:22)
--- NOTE | 2023-08-02 12:52 | Nephrology Progress Note ---
Date of Service August 02, 2023 Assessment & Plan (1) CESAR (acute kidney injury): Plan: today basically plateau'd stage 3 nonoliguric CESAR from ischemic ATN in setting of gram-negative bacteremia; had improved initially then stalled w/ resuming diuretics. Creatinine on admission was 3.2 from a normal baseline of 1.0. today cr increased from 2.4 yesterday to 2.6 today w/ massive polyuria, suggestive of recovery phase of ATN in setting of diuretics. Patient is on antibiotics. Electrolytes are stable no indication for dialysis. DKA has resolved; no longer on insulin gtt. On Lasix 80/40 as an outpatient but not likely he was taking as prescribed. -Avoid hypotension. Avoid contrast or other nephrotoxins. >> intake and outake have hedy been accurately documented as per staff. Standing weight daily -- Contine with lasix and K at lower doses >> 10 mg tid lasix and 20 mEq bid K as his renal functions continue to improve. -Continue strict intake and outtake and daily standing weight to help eval volume status -for now no FR >> history of obstructive uropathy and failed or near failed voiding trial prior to admission; so would not remove yee unless urology OK's (2) Bacteremia: Plan: arriaga sensitive Serratia marescens bacteremia w/ presume source >> 07/26 cxs negative at 48 hrs and not further updated today so far. Continue cefepime renally dosed for current GFR; plan to change to bactrim at d/c per ID Admission and Anticipated Discharge Date Admission Date: July 24, 2023 Subjective Follow-up for UTI, bacteremia, CESAR Comfortble, sitting out in chair No fever, chills, chest pain, palpitation, shortness of breath Denies abdominal pain, nausea or vomiting. He is eating well, has good appetite. 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 boss al nose abnormalit y Mouth: + dry or al mucous membrane s Neck: no nuchal rigidity Respiratory: normal respiratory effort and + labo red breathing (Sli ghtly more promine nt today) Auscult ation: + diminishe d lung sounds and + crackles (bibasi lar) Cardiovascular:L Rate/Rhythm: regul ar rate and regula r rhythm Extremit ies: + edema (2+ B L ankle) Gastrointestinal ( Abdomen): Inspection/Auscult ation: normal rufus l sounds Percussi on/Palpation: abdo men soft; abdomen nontender Musculoskeletal: Extremities: stren gth 5/5 throughout Skin: no rashes, warm an d dry Results & Data Vital Signs (Past 12 Hours) Vital Signs Temp Pulse Pulse Resp BP Pulse Ox O2 Del Method 08/02/23 11:36 36.4 C L 59 L 16 124/70 95 Room Air 08/02/23 07:57 36.6 C 60 16 127/70 94 Room Air 08/02/23 07:46 57 L 08/02/23 03:16 36.6 C 60 18 147/83 H 95 Room Air Laboratory Results 08/02/23 06:47 08/02/23 06:47
[2023-08-02] MEDS: CARBOHYDRATES FOR HYPOGLYCEMIA PO PRN ×3 (16:22→16:52)
[2023-08-02] MEDS: traMADol HCL 50 MG TABLET PO PRN (23:22)
[2023-08-03 06:54] LABS: Hematocrit (blood only) 35.2 % (42.0-52.0); Hemoglobin 11.4 g/dl (14.0-18.0); Mean Corpuscular Hemoglobin 28.3 pg (25.0-34.0); Mean Corpuscular Hgb Conc 32.4 g/dL (32.0-36.0); Mean Corpuscular Volume 87.3 fL (80.0-100.0); Mean Platelet Volume 10.3 fL (9.4-12.4); Platelet Count 361 K/uL (130-400); RDW Coefficient of Variation 13.9 % (11.5-14.5); RDW Standard Deviation 44.9 fL (36.4-46.3); Red Blood Count 4.03 M/uL (4.70-6.10); White Blood Count 14.04 K/ul (4.8-10.8)
[2023-08-03 07:16] LABS: BUN Creatinine Ratio 26.2 (10-20); Calcium 8.4 mg/dl (8.6-10.3); Creatinine Clr Calc Pharmacy 25.7 ml/min; Est GFR (African American) 30.1 ml/min; Magnesium 1.7 mg/dl (1.7-2.4); Phosphorus 3.9 mg/dl (2.5-4.9); Potassium 4.2 mmol/L (3.5-5.1)
[2023-08-03] MEDS: INSULIN ASPART PER UNIT CHARGE SC SCH ×4 (08:11→21:04)
[2023-08-03] MEDS: LANTUS PER UNIT CHARGE SC SCH (08:12)
[2023-08-03] MEDS: APIXABAN 5 MG TABLET PO SCH ×2 (08:13→21:00)
[2023-08-03] MEDS: FUROSEMIDE INJ 20 MG/2 ML VIAL IV SCH ×3 (08:14→21:01)
[2023-08-03] MEDS: POTASSIUM CHLORIDE CRTAB 20 MEQ TABCR PO SCH ×2 (08:14→21:00)
[2023-08-03] MEDS: PANTOprazole 40 MG TAB PO SCH (08:14)
[2023-08-03] MEDS: METOPROLOL TARTRATE 25 MG TAB PO SCH ×2 (08:15→21:00)
--- NOTE | 2023-08-03 12:06 | Hospitalist Progress Note ---
Date of Service August 03, 2023 Assessment & Plan (1) DKA (diabetic ketoacidosis): (2) High anion gap metabolic acidosis: (3) Metabolic encephalopathy: (4) Paroxysmal atrial fibrillation: (5) CESAR (acute kidney injury): (6) Elevated troponin: (7) Acute electrocardiogram changes: (8) Chronic heart failure with preserved ejection fraction (HFpEF): (9) Severe aortic stenosis: Plan This is a critically ill 77-year-old male who has a significant past medical history of medication noncompliance, T2DM, PAF anticoagulated on Eliquis, chronic HFpEF, moderate to severe aortic stenosis, HTN, HLD and BPH who presents to ED via EMS secondary to altered mental status. Sepsis secondary to Bacteremia, UTI Serratia marescens In the setting of indwelling Yee catheter pt with initial tachycardia, leukocytosis, initial hypotension, lactic acidosis tachycardia improved after fluid administration/IV lopressor for afib blood/urine culture obtained empirically tx with vanco/cefepime in ED CT head/CT a/p obtained lyme screen negative anaplasma, babesia ordered - pt recently dx with anaplasma and started on tx in May, uncertain if he completed tx Urine and Blood culture: Serratia marescens repeat blood culture: Negative continue IV Cefepime ID consulted-recommend oral Bactrim- contraindicated in light of acute kidney injury Recommended Levaquin-contraindicated in light of prolonged QT ID recommends last day of antibiotic August 03, 2023 Recommend continue IV antibiotics till then DKA in the setting of Sepsis Metabolic encephalopathy Resolved transitioned to Glargine + Novolog continue to monitor closely CESAR Likely from prerenal, sepsis baseline cr 0.8 presents with BUN/CR 125/3.28 creatinine 2.3 Nephrology service consulted and following closely Pt received IVF, IV lasix prn Atrial Fibrillation in RVR In the setting of sepsis has history of a fib initially presented in RVR, converted after IVF and IV metoprolol uncertain if compliant with eliquis required Cardioversion in the ICU converted to sinus rhythm Also required amiodarone drip SR now Continue metoprolol tartrate 25 mg twice daily Eliquis 5 mg twice a day Elevated troponin Acute EKG changes obtained echo per shoe singer, this was discussed with supervisor fireworks assembly cycled trops, likely in setting of critical illness EKG 73 NSR PAC, RBBB, LAFB, St t wave changes diffusely likely demand ischemia trop 100, 200, 100s Chronic HFpEF Severe Aortic Stenosis HTN HLD daily weights/strict intake and output recent echo: 04/2023 EF 50-55%, moderate concentric LVH, moderate to severe aortic stenosis, moderate mitral calcification, RV normal in size and function appears euvolemic at this time BPH with GORDON yee in place [facility] urology follow pt, yee exchanged in ED continue yee DVT ppx: Gera Initially FULL CODE - as per discussion with on admission -> Currently DNR/DNI - changed by field installation technician after discussing further PCP: Elvie Maria Disposition Pending, Office of ageing involved PT/OT evaluation Admission and Anticipated Discharge Date Admission Date: July 24, 2023 Subjective Follow-up for UTI, bacteremia, CESAR, etc. Laying in bed in NAD. Reports feeling well today. He is laying flat in bed on RA. No fever, chills, chest pain, palpitation, shortness of breath Denies abdominal pain, nausea or vomiting. He is eating well, has good appetite. Nephrology following closely CM and Office of ageing involved. Review of Systems Review of Systems: All systems reviewed & are unremarkable except as noted in Subjective Physical Exam Physical Exam: General- oriented x 3, not in distress, speaks in sentences with no effort or accessory muscle use Eyes- anicteric Neck- no JVD Lungs- clear breath sounds bilaterally, no wheezing Heart- normal rate, regular rhythm; no murmurs Abdomen- normal bowel sounds, nondistended, soft, nontender Extremities- no pretibial edema, no calf tenderness Neuro- alert, oriented x 3; no gross focal neurologic deficits Skin- warm & dry Results & Data Results & Data Vital Signs (Past 12 Hours) Vital Signs Temp Pulse Pulse Resp BP BP Pulse Ox 08/03/23 11:23 36.7 C 60 17 119/73 93 08/03/23 08:00 61 08/03/23 07:22 36.9 C 61 19 133/91 100 08/03/23 03:40 36.7 C 61 18 108/55 L 97 O2 Del Method 08/03/23 11:23 Room Air 08/03/23 08:00 08/03/23 07:22 Room Air 08/03/23 03:40 Room Air Laboratory Results 08/03/23 08/03/23 08/03/23 Range/Units 11:20 07:11 05:55 WBC (4.8-10.8) K/ul RBC (4.70-6.10) M/uL Hgb (14.0-18.0) g/dl Hct (42.0-52.0) % MCV (80.0-100.0) fL MCH (25.0-34.0) pg MCHC (32.0-36.0) g/dL RDW Std Deviation (36.4-46.3) fL RDW Coeff of Scott (11.5-14.5) % Plt Count (130-400) K/uL MPV (9.4-12.4) fL Sodium 134 L (136-145) mmol/L Potassium 4.2 (3.5-5.1) mmol/L Chloride 97 L (98-107) mmol/L Carbon Dioxide 30 (21-32) mmol/L Anion Gap 7 (3-11) BUN 61 H (6-23) mg/dl Creatinine 2.33 H D (0.6-1.4) mg/dl Est Cr Clr Drug Dosing 25.7 ml/min Est GFR ( Amer) 30.1 ml/min Est GFR (Non-Af Amer) 26.0 ml/min BUN/Creatinine Ratio 26.2 H (10-20) Glucose 176 H (70-99(Fasting)) mg/dl POC Glucose 186 H 190 H (70-99) mg/dl Calcium 8.4 L (8.6-10.3) mg/dl Phosphorus 3.9 (2.5-4.9) mg/dl Magnesium 1.7 (1.7-2.4) mg/dl 08/03/23 08/02/23 08/02/23 Range/Units 05:55 19:57 17:05 WBC 14.04 H (4.8-10.8) K/ul RBC 4.03 L (4.70-6.10) M/uL Hgb 11.4 L (14.0-18.0) g/dl Hct 35.2 L (42.0-52.0) % MCV 87.3 (80.0-100.0) fL MCH 28.3 (25.0-34.0) pg MCHC 32.4 (32.0-36.0) g/dL RDW Std Deviation 44.9 (36.4-46.3) fL RDW Coeff of Scott 13.9 (11.5-14.5) % Plt Count 361 (130-400) K/uL MPV 10.3 (9.4-12.4) fL Sodium (136-145) mmol/L Potassium (3.5-5.1) mmol/L Chloride (98-107) mmol/L Carbon Dioxide (21-32) mmol/L Anion Gap (3-11) BUN (6-23) mg/dl Creatinine (0.6-1.4) mg/dl Est Cr Clr Drug Dosing ml/min Est GFR ( Amer) ml/min Est GFR (Non-Af Amer) ml/min BUN/Creatinine Ratio (10-20) Glucose (70-99(Fasting)) mg/dl POC Glucose 258 H 82 (70-99) mg/dl Calcium (8.6-10.3) mg/dl Phosphorus (2.5-4.9) mg/dl Magnesium (1.7-2.4) mg/dl 08/02/23 08/02/23 08/02/23 Range/Units 16:52 16:38 16:22 WBC (4.8-10.8) K/ul RBC (4.70-6.10) M/uL Hgb (14.0-18.0) g/dl Hct (42.0-52.0) % MCV (80.0-100.0) fL MCH (25.0-34.0) pg MCHC (32.0-36.0) g/dL RDW Std Deviation (36.4-46.3) fL RDW Coeff of Scott (11.5-14.5) % Plt Count (130-400) K/uL MPV (9.4-12.4) fL Sodium (136-145) mmol/L Potassium (3.5-5.1) mmol/L Chloride (98-107) mmol/L Carbon Dioxide (21-32) mmol/L Anion Gap (3-11) BUN (6-23) mg/dl Creatinine (0.6-1.4) mg/dl Est Cr Clr Drug Dosing ml/min Est GFR ( Amer) ml/min Est GFR (Non-Af Amer) ml/min BUN/Creatinine Ratio (10-20) Glucose (70-99(Fasting)) mg/dl POC Glucose 63 L* 54 L* 66 L* (70-99) mg/dl Calcium (8.6-10.3) mg/dl Phosphorus (2.5-4.9) mg/dl Magnesium (1.7-2.4) mg/dl Medications Administered Current Inpatient Medications Acetaminophen (Acetaminophen 325 Mg Tab) 650 mg PO QID PRN PRN Reason: pain/fever Stop: 08/24/23 23:06 Apixaban (Apixaban 5 Mg Tablet) 5 mg PO BID DARIN Stop: 08/25/23 20:59 Last Admin: 08/03/23 08:13 Dose: 5 mg Dextrose (Dextrose 50% 50 Ml Syringe) 25 - 50 ml IV UD PRN; Protocol PRN Reason: Hypoglycemia Protocol Stop: 08/23/23 15:25 Furosemide (Furosemide Inj 20 Mg/2 Ml Vial) 20 mg IV Q8H DARIN Stop: 08/27/23 11:59 Last Admin: 07/29/23 12:12 Dose: 20 mg Furosemide (Furosemide Inj 20 Mg/2 Ml Vial) 10 mg IV TID DARIN Stop: 08/30/23 08:59 Last Admin: 08/03/23 08:14 Dose: 10 mg Glucagon (Glucagon For Inj 1 Mg Vial) 1 mg SQ UD PRN; Protocol PRN Reason: Hypoglycemia Protocol Stop: 08/23/23 15:25 Glucose (Glucose 40% Gel 15 Gm Tube) 15 - 30 gm PO UD PRN; Protocol PRN Reason: Hypoglycemia Protocol Stop: 08/23/23 15:25 Glucose (Glucose 10 Tab/Tube) 4 - 8 tab PO UD PRN; Protocol PRN Reason: Hypoglycemia Treatment Stop: 08/23/23 15:25 Insulin Aspart (Insulin Aspart Per Unit Charge) 0 units SC DAILY@0730 DARIN Stop: 08/29/23 07:29 Last Admin: 08/03/23 08:11 Dose: 19 units Insulin Aspart (Insulin Aspart Per Unit Charge) 0 units SC DAILY@1130 DARIN; Protocol Stop: 08/30/23 11:29 Last Admin: 08/02/23 11:39 Dose: 17 units Insulin Aspart (Insulin Aspart Per Unit Charge) 0 units SC BID@1630,2100 DARIN; Protocol Stop: 08/28/23 11:29 Last Admin: 08/02/23 20:20 Dose: 8 units Insulin Glargine (Lantus Per Unit Charge) 30 units SC DAILY [facility]; Protocol Stop: 08/27/23 20:59 Last Admin: 08/03/23 08:12 Dose: 30 units Metoprolol Tartrate (Metoprolol Tartrate 25 Mg Tab) 25 mg PO BID [facility] Stop: 08/24/23 08:59 Last Admin: 08/03/23 08:15 Dose: 25 mg Metoprolol Tartrate (Metoprolol Tartrate 1 Mg/Ml Vial) 5 mg IV Q4 PRN PRN Reason: HR>120 Stop: 08/24/23 11:59 Miscellaneous (Carbohydrates For Hypoglycemia ) 15 - 30 gm PO UD PRN PRN Reason: Hypoglycemia Protocol Stop: 08/23/23 15:25 Last Admin: 08/02/23 16:52 Dose: 15 gm Miscellaneous Information (Pharmacy Glycemic Mgmt Consult) 1 each N/A UD PRN PRN Reason: Consult Stop: 08/23/23 19:41 Pantoprazole Sodium (Pantoprazole 40 Mg Tab) 40 mg PO DAILY [facility] Stop: 08/24/23 08:59 Last Admin: 08/03/23 08:14 Dose: 40 mg Potassium Chloride (Potassium Chloride Crtab 20 Meq Tabcr) 20 meq PO BID [facility] Stop: 08/27/23 11:59 Last Admin: 08/03/23 08:14 Dose: 20 meq Tramadol HCl (Tramadol Hcl 50 Mg Tablet) 25 - 50 mg PO Q4H PRN PRN Reason: Pain Stop: 08/25/23 05:21 Last Admin: 08/02/23 23:22 Dose: 50 mg
--- NOTE | 2023-08-03 12:39 | Pharmacy Report ---
Pharmacy Glycemic Short Note 2 - Date of Service August 03, 2023 - Glycemic Short BSG Results (Last 24 hours): 08/02/23 08/02/23 08/02/23 16:22 16:38 16:52 Glucose POC Glucose 66 L* 54 L* 63 L* 08/02/23 08/02/23 08/03/23 17:05 19:57 05:55 Glucose 176 H POC Glucose 82 258 H 08/03/23 08/03/23 07:11 11:20 Glucose POC Glucose 190 H 186 H OUTPATIENT ANTIDIABETIC REGIMEN: * Xultophy 20 units SC HS * Novolog 5 units SC AC * HbA1c: 10.7% (04/29/23) ASSESSMENT: 08/03: * BSGs yesterday [phone] mg/dL. Received 30 units of basal and 44 units of bolus yesterday. * Breakfast insulin given ~0900 which may have contributed to high BSG at lunch and subsequent low with dinner. Will loosen CR/CF with lunch today, however as patient was also below goal at dinner on 08/01.- monitor * Fasting 190 mg/dL this morning- monitor; consider increase in basal if trend continues (125 mg/dL yesterday). 07/31: * BSGs elevated the last 24h: [phone]/dL. Received 23 units of basal and 42 units of bolus insulin yesterday. * Further titrate basal, 30 units. Novolog carb ratio tightened at breakfast and lunch. Continue with looser parameters at dinner and HS. 07/30: * BSGs 267-05-386-252mg/dL the last 24h. Received 20 units of basal and 42 units of bolus insulin yesterday. * Other stressors stable. * Titrate basal given elevated fasting to 23 units. Novolog further tightened at breakfast. Will loosen lunch, dinner, HS parameters given tendency to go low at night (continue max 15 units) 07/29: * BSGs 30-60-526-283mg/dl the last 24h. Received no basal and 38 units of bolus insulin yesterday. * Stressors stable. * Given low BSGs yesterday at dinner, Lantus was held. Resumed this AM at 20 units as fasting was 191mg/dL. Novolog loosened back to / today and again BSG is high at lunch. Will use a tighter carb ratio tomorrow at breakfast with looser ratio at all other times (max 15 units at lunch, dinner and HS). 07/28: * BSGs [phone]/dL the last 24h. Received 15 units of basal and 25 units of bolus insulin yesterday. * Tolerating diet, continues on cefepime. * Increase basal to 20 units given elevated fasting. Tighten novolog for improved prandial coverage and improved PO intake. 07/27: * BSGs [phone]/dL the last 24h. Received 12 units of basal and 11 units of bolus insulin yesterday. * Diet reinitiated and continues on antibiotics. * Increase basal to 15 units at HS given slightly elevated fasting. Novolog parameters tightened with advancement of diet. 07/26: * Selvin received 59 units of insulin yesterday, 40 units basal + 19 units bolus. BSGs were: [phone] mg/dL. * Fasting BSG was below goal at 84 mg/dL this AM. Will reduce basal significantly given NPO and dextrose discontinued. Will loosen Novolog as well while NPO. 07/25: * 77 yo M admitted on 07/24/23 secondary to HHS/CESAR/Afib/Resp failure. Pharmacy has been consulted to assist with inpatient glycemic management. Patient is a Type 2 diabetic as an outpatient. Please refer to outpatient regimen and most recent HbA1c above. * BSG was 768 mg/dL upon arrival yesterday. Started on an insulin drip. Received ~ 62 units via drip over a 12 hour period. * Will give a dose of basal insulin this morning in hopes of transitioning. Pesticide Use Medical Coordinator okay with transitioning today. * RN shut insulin drip off right after Lantus administration without overlap due to compatibility issues. Discontinued dextrose and potassium containing fluids. Pesticide Use Medical Coordinator would like 1/2 NS running at 75 mL/hr. * Remains NPO. No enteral nutrition yet. Cefepime for infection. Amiodarone and Heparin drips running. * Will start Novolog q4 for time being. PLAN FOR INPATIENT GLYCEMIC CONTROL: * Basal insulin * Lantus 30 units SC daily * Bolus insulin * NovoLog per scale ACHS * Goal Range: Low 110 mg/dL - High 140 mg/dL * Correction Factor: 15mg/dL/unit (breakfast), 25 mg/dL/unit (lunch), 25mg/dL/unit (dinner/ HS) * Nutritional / Prandial insulin per carb ratio of 1 unit per 4 grams (breakfast), 7 grams (lunch), 7 grams (dinner/HS) CHO consumed
[2023-08-04 06:52] LABS: BUN Creatinine Ratio 26.8 (10-20); Calcium 8.7 mg/dl (8.6-10.3); Creatinine Clr Calc Pharmacy 25.5 ml/min; Est GFR (African American) 30.2 ml/min; Est GFR (Non-African American) 26.1 ml/min; Magnesium 1.9 mg/dl (1.7-2.4); Phosphorus 4.3 mg/dl (2.5-4.9); Potassium 4.2 mmol/L (3.5-5.1)
--- NOTE | 2023-08-04 07:30 | Pharmacy Report ---
Pharmacy Glycemic Short Note 2 - Date of Service August 04, 2023 - Glycemic Short BSG Results (Last 24 hours): 08/03/23 08/03/23 08/03/23 11:20 16:21 20:03 Glucose POC Glucose 186 H 89 143 H 08/04/23 08/04/23 05:32 07:19 Glucose 195 H POC Glucose 248 H OUTPATIENT ANTIDIABETIC REGIMEN: * Xultophy 20 units SC HS * Novolog 5 units SC AC * HbA1c: 10.7% (04/29/23) ASSESSMENT: 08/04: * Stressors stable - ordered T2DM diet * AM fasting BSG above goal range for many days (with the exception of 08/02, but BSG trended up overnight that night). Will increase Lantus * Dinnertime BSG below goal yesterday. Will loosen Novolog in the latter part of the day, particularly at lunch, to help prevent hypoglycemia. 08/03: * BSGs yesterday [phone] mg/dL. Received 30 units of basal and 44 units o f bolus yesterday. * Breakfast insulin given ~0900 which may have contributed to high BSG at lunch and subsequent low with dinner. Will loosen CR/CF with lunch today, however as patient was also below goal at dinner on 08/01.- monitor * Fasting 190 mg/dL this morning- monitor; consider increase in basal if trend continues (125 mg/dL yesterday). 07/31: * BSGs elevated the last 24h: [phone]/dL. Received 23 units of basal and 42 units of bolus insulin yesterday. * Further titrate basal, 30 units. Novolog carb ratio tightened at breakfast and lunch. Continue with looser parameters at dinner and HS. 07/30: * BSGs [phone]/dL the last 24h. Received 20 units of basal and 42 units of bolus insulin yesterday. * Other stressors stable. * Titrate basal given elevated fasting to 23 units. Novolog further tightened at breakfast. Will loosen lunch, dinner, HS parameters given tendency to go low at night (continue max 15 units) 07/29: * BSGs [phone]/dl the last 24h. Received no basal and 38 units of bolus insulin yesterday. * Stressors stable. * Given low BSGs yesterday at dinner, Lantus was held. Resumed this AM at 20 units as fasting was 191mg/dL. Novolog loosened back to 20/6 today and again BSG is high at lunch. Will use a tighter carb ratio tomorrow at breakfast with looser ratio at all other times (max 15 units at lunch, dinner and HS). 07/28: * BSGs [phone]/dL the last 24h. Received 15 units of basal and 25 units of bolus insulin yesterday. * Tolerating diet, continues on cefepime. * Increase basal to 20 units given elevated fasting. Tighten novolog for improv ed prandial coverage and improved PO intake. 07/27: * BSGs [phone]/dL the last 24h. Received 12 units of basal and 11 units of bolus insulin yesterday. * Diet reinitiated and continues on antibiotics. * Increase basal to 15 units at HS given slightly elevated fasting. Novolog parameters tightened with advancement of diet. 07/26: * Selvin received 59 units of insulin yesterday, 40 units basal + 19 units bolus. BSGs were: [phone] mg/dL. * Fasting BSG was below goal at 84 mg/dL this AM. Will reduce basal significantly given NPO and dextrose discontinued. Will loosen Novolog as well while NPO. 07/25: * 77 yo M admitted on 07/24/23 secondary to HHS/CESAR/Afib/Resp failure. Pharmacy has been consulted to assist with inpatient glycemic management. Patient is a Type 2 diabetic as an outpatient. Please refer to outpatient regimen and most recent HbA1c above. * BSG was 768 mg/dL upon arrival yesterday. Started on an insulin drip. Received ~ 62 units via drip over a 12 hour period. * Will give a dose of basal insulin this morning in hopes of transitioning. Back Sewer okay with transitioning today. * RN shut insulin drip off right after Lantus administration without overlap due to compatibility issues. Discontinued dextrose and potassium containing fluids. Back Sewer would like 1/2 NS running at 75 mL/hr. * Remains NPO. No enteral nutrition yet. Cefepime for infection. Amiodarone and Heparin drips running. * Will start Novolog q4 for time being. PLAN FOR INPATIENT GLYCEMIC CONTROL: * Basal insulin * Lantus 35 units SC daily * Bolus insulin * NovoLog per scale ACHS * Goal Range: Low 110 mg/dL - High 140 mg/dL * Correction Factor: 15 mg/dL/unit (breakfast), 30 mg/dL/unit (lunch/dinner/ HS) * Nutritional / Prandial insulin per carb ratio of 1 unit per 4 grams (breakfast), 8 grams (lunch/dinner/HS) CHO consumed
--- NOTE | 2023-08-04 07:39 | Hospitalist Progress Note ---
Date of Service August 04, 2023 Assessment & Plan (1) DKA (diabetic ketoacidosis): (2) High anion gap metabolic acidosis: (3) Metabolic encephalopathy: (4) Paroxysmal atrial fibrillation: (5) CESAR (acute kidney injury): (6) Elevated troponin: (7) Acute electrocardiogram changes: (8) Chronic heart failure with preserved ejection fraction (HFpEF): (9) Severe aortic stenosis: Plan This is a critically ill 77-year-old male who has a significant past medical history of medication noncompliance, T2DM, PAF anticoagulated on Eliquis, chronic HFpEF, moderate to severe aortic stenosis, HTN, HLD and BPH who presents to ED via EMS secondary to altered mental status. Sepsis secondary to Bacteremia, UTI Serratia marescens In the setting of indwelling Yee catheter pt with initial tachycardia, leukocytosis, initial hypotension, lactic acidosis tachycardia improved after fluid administration/IV lopressor for afib blood/urine culture obtained empirically tx with vanco/cefepime in ED CT head/CT a/p obtained lyme screen negative anaplasma, babesia ordered - pt recently dx with anaplasma and started on tx in May, uncertain if he completed tx Urine and Blood culture: Serratia marescens repeat blood culture: Negative continued IV Cefepime - abx course finished ID consulted-recommend oral Bactrim- contraindicated in light of acute kidney injury Recommended Levaquin-contraindicated in light of prolonged QT ID recommends last day of antibiotic August 03, 2023 - antibiotic course finished DKA in the setting of Sepsis Metabolic encephalopathy Resolved transitioned to Glargine + Novolog continue to monitor closely CESAR Likely from prerenal, sepsis baseline cr 0.8 presents with BUN/CR 125/3.28 Creatinine 2.3 (on admission Cr 3.28) Nephrology service consulted and following closely - will provide final recommendations prior to discharge Pt received IVF, IV lasix prn Atrial Fibrillation in RVR In the setting of sepsis has history of a fib initially presented in RVR, converted after IVF and IV metoprolol uncertain if compliant with eliquis required Cardioversion in the ICU converted to sinus rhythm Also required amiodarone drip SR now Continue metoprolol tartrate 25 mg twice daily Eliquis 5 mg twice a day Elevated troponin Acute EKG changes obtained echo per ethanol quality leader, this was discussed with audit tech cycled trops, likely in setting of critical illness EKG 73 NSR PAC, RBBB, LAFB, St t wave changes diffusely likely demand ischemia trop 100, 200, 100s Chronic HFpEF Severe Aortic Stenosis HTN HLD daily weights/strict intake and output recent echo: 04/2023 EF 50-55%, moderate concentric LVH, moderate to severe aor tic stenosis, moderate mitral calcification, RV normal in size and function appears euvolemic at this time BPH with GORDON yee in place [facility] urology follow pt, yee exchanged in ED continue yee DVT ppx: Maryannquis Initially FULL CODE - as per discussion with on admission -> Currently DNR/DNI - changed by television operator after discussing further PCP: Elvie Maria Disposition Pending, Office of ageing involved PT/OT evaluation Admission and Anticipated Discharge Date Admission Date: July 24, 2023 Subjective Follow-up for UTI, bacteremia, CESAR, etc. Laying in bed in NAD. Reports feeling well today. He is laying flat in bed on RA. No fever, chills, chest pain, palpitation, shortness of breath Denies abdominal pain, nausea or vomiting. He is eating well, has good appetite. Nephrology following closely - discussed w/ nephrology today again - ok to discharge - will provide DC recommendations prior to discharge CM and Office of ageing involved. Review of Systems Review of Systems: All systems reviewed & are unremarkable except as noted in Subjective Physical Exam Physical Exam: General- oriented x 3, not in distress, speaks in sentences with no effort or accessory muscle use Eyes- anicteric Neck- no JVD Lungs- clear breath sounds bilaterally, no wheezing Heart- normal rate, regular rhythm; no murmurs Abdomen- normal bowel sounds, nondistended, soft, nontender Extremities- no pretibial edema, no calf tenderness Neuro- alert, oriented x 3; no gross focal neurologic deficits Skin- warm & dry Results & Data Results & Data Vital Signs (Past 12 Hours) Vital Signs Temp Pulse Pulse Resp BP BP Pulse Ox 08/04/23 07:34 36.4 C L 63 14 122/80 96 08/04/23 03:58 36.8 C 60 18 121/70 95 08/03/23 23:00 62 08/03/23 22:59 36.6 C 64 16 125/69 95 O2 Del Method 08/04/23 07:34 Room Air 08/04/23 03:58 Room Air 08/03/23 23:00 08/03/23 22:59 Room Air Laboratory Results 08/04/23 08/04/23 08/03/23 Range/Units 07:19 05:32 20:03 Sodium 135 L (136-145) mmol/L Potassium 4.2 (3.5-5.1) mmol/L Chloride 97 L (98-107) mmol/L Carbon Dioxide 31 (21-32) mmol/L Anion Gap 7 (3-11) BUN 62 H (6-23) mg/dl Creatinine 2.31 H (0.6-1.4) mg/dl Est Cr Clr Drug Dosing 25.5 ml/min Est GFR ( Amer) 30.2 ml/min Est GFR (Non-Af Amer) 26.1 ml/min BUN/Creatinine Ratio 26.8 H (10-20) Glucose 195 H (70-99(Fasting)) mg/dl POC Glucose 248 H 143 H (70-99) mg/dl Calcium 8.7 (8.6-10.3) mg/dl Phosphorus 4.3 (2.5-4.9) mg/dl Magnesium 1.9 (1.7-2.4) mg/dl 08/03/23 08/03/23 Range/Units 16:21 11:20 Sodium (136-145) mmol/L Potassium (3.5-5.1) mmol/L Chloride (98-107) mmol/L Carbon Dioxide (21-32) mmol/L Anion Gap (3-11) BUN (6-23) mg/dl Creatinine (0.6-1.4) mg/dl Est Cr Clr Drug Dosing ml/min Est GFR ( Amer) ml/min Est GFR (Non-Af Amer) ml/min BUN/Creatinine Ratio (10-20) Glucose (70-99(Fasting)) mg/dl POC Glucose 89 186 H (70-99) mg/dl Calcium (8.6-10.3) mg/dl Phosphorus (2.5-4.9) mg/dl Magnesium (1.7-2.4) mg/dl Medications Administered Current Inpatient Medications Acetaminophen (Acetaminophen 325 Mg Tab) 650 mg PO QID PRN PRN Reason: pain/fever Stop: 08/24/23 23:06 Apixaban (Apixaban 5 Mg Tablet) 5 mg PO BID [facility] Stop: 08/25/23 20:59 Last Admin: 08/03/23 21:00 Dose: 5 mg Dextrose (Dextrose 50% 50 Ml Syringe) 25 - 50 ml IV UD PRN; Protocol PRN Reason: Hypoglycemia Protocol Stop: 08/23/23 15:25 Furosemide (Furosemide Inj 20 Mg/2 Ml Vial) 20 mg IV Q8H [facility] Stop: 08/27/23 11:59 Last Admin: 07/29/23 12:12 Dose: 20 mg Furosemide (Furosemide Inj 20 Mg/2 Ml Vial) 10 mg IV TID [facility] Stop: 08/30/23 08:59 Last Admin: 08/03/23 21:01 Dose: 10 mg Glucagon (Glucagon For Inj 1 Mg Vial) 1 mg SQ UD PRN; Protocol PRN Reason: Hypoglycemia Protocol Stop: 08/23/23 15:25 Glucose (Glucose 40% Gel 15 Gm Tube) 15 - 30 gm PO UD PRN; Protocol PRN Reason: Hypoglycemia Protocol Stop: 08/23/23 15:25 Glucose (Glucose 10 Tab/Tube) 4 - 8 tab PO UD PRN; Protocol PRN Reason: Hypoglycemia Treatment Stop: 08/23/23 15:25 Insulin Aspart (Insulin Aspart Per Unit Charge) 0 units SC DAILY@0730 [facility] Stop: 08/29/23 07:29 Last Admin: 08/03/23 08:11 Dose: 19 units Insulin Aspart (Insulin Aspart Per Unit Charge) 0 units SC TID@1130,1630,2100 [facility]; Protocol Stop: 09/03/23 11:29 Insulin Glargine (Lantus Per Unit Charge) 35 units SC DAILY [facility]; Protocol Stop: 09/03/23 08:59 Metoprolol Tartrate (Metoprolol Tartrate 25 Mg Tab) 25 mg PO BID [facility] Stop: 08/24/23 08:59 Last Admin: 08/03/23 21:00 Dose: 25 mg Metoprolol Tartrate (Metoprolol Tartrate 1 Mg/Ml Vial) 5 mg IV Q4 PRN PRN Reason: HR>120 Stop: 08/24/23 11:59 Miscellaneous (Carbohydrates For Hypoglycemia ) 15 - 30 gm PO UD PRN PRN Reason: Hypoglycemia Protocol Stop: 08/23/23 15:25 Last Admin: 08/02/23 16:52 Dose: 15 gm Miscellaneous Information (Pharmacy Glycemic Mgmt Consult) 1 each N/A UD PRN PRN Reason: Consult Stop: 08/23/23 19:41 Pantoprazole Sodium (Pantoprazole 40 Mg Tab) 40 mg PO DAILY [facility] Stop: 08/24/23 08:59 Last Admin: 08/03/23 08:14 Dose: 40 mg Potassium Chloride (Potassium Chloride Crtab 20 Meq Tabcr) 20 meq PO BID [facility] Stop: 08/27/23 11:59 Last Admin: 08/03/23 21:00 Dose: 20 meq Tramadol HCl (Tramadol Hcl 50 Mg Tablet) 25 - 50 mg PO Q4H PRN PRN Reason: Pain Stop: 08/25/23 05:21 Last Admin: 08/02/23 23:22 Dose: 50 mg
[2023-08-04] MEDS: INSULIN ASPART PER UNIT CHARGE SC SCH ×5 (08:20→21:24)
[2023-08-04] MEDS: LANTUS PER UNIT CHARGE SC SCH (08:20)
[2023-08-04] MEDS: METOPROLOL TARTRATE 25 MG TAB PO SCH ×2 (08:21→21:23)
[2023-08-04] MEDS: APIXABAN 5 MG TABLET PO SCH ×2 (08:21→21:23)
[2023-08-04] MEDS: PANTOprazole 40 MG TAB PO SCH (08:21)
[2023-08-04] MEDS: POTASSIUM CHLORIDE CRTAB 20 MEQ TABCR PO SCH (08:22)
[2023-08-04] MEDS: FUROSEMIDE INJ 20 MG/2 ML VIAL IV SCH (08:22)
--- NOTE | 2023-08-04 12:41 | Nephrology Progress Note ---
Date of Service August 04, 2023 Assessment & Plan (1) CESAR (acute kidney injury): Plan: Patient with acute kidney injury due to ischemic ATN in setting of sepsis. Cr eatinine on admission was 3.2 from a normal baseline of 1.0. today cr of 2.3 w/ massive polyuria, suggestive of recovery phase of ATN in setting of diuretics. Electrolytes are stable no indication for dialysis. DKA has resolved; no longer on insulin gtt. hold Lasix today. current weight is below his baseline weight of around 76 kg -Avoid hypotension. Avoid contrast or other nephrotoxins. Standing weight daily -Continue strict intake and outtake and daily standing weight to help eval volu me status >> history of obstructive uropathy and failed or near failed voiding trial prior to admission; so would not remove yee unless urology OK's -From renal standpoint patient is ready for discharge. He will need renal follow-up in 1 to 2 weeks postdischarge. Patient be discharged with Yee and urology follow-up outpatient. We will decide dose of diuretics to be discharged on tomorrow or the day after (2) Bacteremia: Plan: arriaga sensitive Serratia marescens bacteremia w/ presume source >> 07/26 cxs negative at 48 hrs and not further updated today so far. S/p IV antibiotics Admission and Anticipated Discharge Date Admission Date: July 24, 2023 Subjective Seen for acute kidney injury due to ischemic ATN in setting of sepsis. Patient has improved and completed antibiotic course. He is now in post ATN diuresis. He made about 5 L of urine and was net -2.7 L yesterday. Breathing has improved. Leg swelling has subsided. Review of Systems Review of Systems: All other systems were reviewed and negative except as noted in HPI Physical Exam Physical Exam: General exam: Appears comfortable, no acute distress HEENT: Pupils are equal and reactive to light. Extremely hard of hearing Neck: No JVD, neck is supple trachea is midline Respiratory system: Clear breath sounds bilaterally. Gastrointestinal: Abdomen is soft, non distended, non tender, bowel sounds are present CVS: Regular rate and rhythm. No murmurs, rubs or gallops Musculoskeletal: No joint or muscle tenderness Extremities: Non tender, no edema, peripheral pulses are present Neuro: Oriented, no tremors, no focal neurological deficits Skin: No rashes Results & Data Vital Signs (Past 12 Hours) Vital Signs Temp Pulse Resp BP BP Pulse Ox O2 Del Method 08/04/23 10:56 37 C 63 19 114/69 96 Room Air 08/04/23 07:34 36.4 C L 63 14 122/80 96 Room Air 08/04/23 03:58 36.8 C 60 18 121/70 95 Room Air Laboratory Results 08/04/23 05:32 08/04/23 05:32 Phosphorus 4.3
[2023-08-05 06:25] LABS: Hemoglobin 10.7 g/dl (14.0-18.0); Mean Corpuscular Hemoglobin 28.4 pg (25.0-34.0); Mean Corpuscular Hgb Conc 32.4 g/dL (32.0-36.0); Mean Corpuscular Volume 87.5 fL (80.0-100.0); Mean Platelet Volume 10.1 fL (9.4-12.4); Platelet Count 400 K/uL (130-400); RDW Coefficient of Variation 13.7 % (11.5-14.5); Red Blood Count 3.77 M/uL (4.70-6.10); White Blood Count 11.48 K/ul (4.8-10.8)
[2023-08-05 06:36] LABS: BUN Creatinine Ratio 27.4 (10-20); Calcium 8.4 mg/dl (8.6-10.3); Creatinine Clr Calc Pharmacy 24.9 ml/min; Est GFR (African American) 29.3 ml/min; Est GFR (Non-African American) 25.3 ml/min; Magnesium 1.9 mg/dl (1.7-2.4); Phosphorus 3.8 mg/dl (2.5-4.9); Potassium 4.2 mmol/L (3.5-5.1)
[2023-08-05] MEDS: INSULIN ASPART PER UNIT CHARGE SC SCH ×5 (08:21→21:05)
[2023-08-05] MEDS: LANTUS PER UNIT CHARGE SC SCH (08:22)
[2023-08-05] MEDS: APIXABAN 5 MG TABLET PO SCH ×2 (08:25→21:05)
[2023-08-05] MEDS: METOPROLOL TARTRATE 25 MG TAB PO SCH ×2 (08:25→21:05)
[2023-08-05] MEDS: PANTOprazole 40 MG TAB PO SCH (10:13)
--- NOTE | 2023-08-05 10:52 | Nephrology Progress Note ---
Date of Service August 05, 2023 Assessment & Plan Admission and Anticipated Discharge Date Admission Date: July 24, 2023 Subjective Assessment & Plan (1) CESAR (acute kidney injury): Plan: Patient with acute kidney injury due to ischemic ATN in setting of sepsis. Creatinine on admission was 3.2 from a normal baseline of 1.0. massive polyuria, suggestive of recovery phase of ATN in setting of diuretics. Electrolytes are stable no indication for dialysis. Avoid hypotension. Avoid contrast or other nephrotoxins. Standing weight daily history of obstructive uropathy and failed or near failed voiding trial prior to admission; so would not remove yee unless urology OK's From renal standpoint patient is ready for discharge. He will need renal follow -up in 1 to 2 weeks postdischarge. Patient to be discharged with Yee and urology follow-up outpatient. We will decide dose of diuretics to be discharged on tomorrow or the day after (2) Bacteremia: Plan: arriaga sensitive Serratia marescens bacteremia w/ presume source >> 07/26 cxs negative at 48 hrs and not further updated today so far. S/p IV antibiotics Subjective Seen for acute kidney injury due to ischemic ATN in setting of sepsis. He is now in post ATN diuresis phase.Uo 3500 ml yesterday so it is slowing down Breathing has improved. Leg swelling has subsided. Review of Systems Review of Systems: All other systems were reviewed and negative except as noted in HPI Physical Exam Physical Exam: General exam: Appears comfortable, no acute distress HEENT: Pupils are equal and reactive to light. Extremely hard of hearing Neck: No JVD, neck is supple trachea is midline Respiratory system: Clear breath sounds bilaterally. Gastrointestinal: Abdomen is soft, non distended, non tender, bowel sounds are present CVS: Regular rate and rhythm. No murmurs, rubs or gallops Musculoskeletal: No joint or muscle tenderness Extremities: Non tender, no edema, peripheral pulses are present Neuro: Oriented, no tremors, no focal neurological deficits Skin: No rashes Results & Data Vital Signs (Past 12 Hours) Vital Signs Temp Pulse Pulse Resp BP Pulse Ox O2 Del Method 08/05/23 07:07 36.5 C 60 16 124/62 96 Room Air 08/05/23 03:48 36.3 C L 61 16 119/66 97 Room Air 08/04/23 23:49 67 08/04/23 23:22 36.7 C 74 14 127/65 97 Room Air
--- NOTE | 2023-08-05 14:17 | Urology Consultation ---
Date of Consultation August 05, 2023 Assessment & Plan (1) Indwelling Hanna catheter present: (2) BPH (benign prostatic hyperplasia): (3) Catheter-associated urinary tract infection: Plan 77yo/M with multiple medical issues admitted with UTI, bacteremia, CESAR, DKA. Urology asked to evaluate patient due to complicated UTI and question of voiding trial prior to discharge. - Afebrile and hemodynamically stable. - Labs reviewedWBC 11.48, hemoglobin 10.7, creatinine 2.37. - Urine and blood cultures grew serratia marescens. He completed antibiotic course. - Patient has been managing urinary retention issues with a Hanna catheter which was replaced in the ED on 07/24/2023. - Recommend maintaining Hanna catheter for now. We can arrange a follow-up and possible voiding trial as an outpatient. - Would recommend resuming maximum medical therapy for BPH with tamsulosin and finasteride if no contraindications. - Urology will sign-off. Please contact us with any further questions, concerns, or changes in patient status. History of Present Illness Attending Physician: Bernardo Elizondo MD History of Present Illness 77-year-old male who has a significant past medical history of medication noncompliance, T2DM, PAF anticoagulated on Eliquis, chronic HFpEF, moderate to severe aortic stenosis, HTN, HLD and BPH who was admitted on 07/24/2023 for metabolic encephalopathy, CESAR, and DKA. Urine and blood cultures grew serratia marescens. He completed antibiotic course. Patient has been managing urinary retention with a Hanna catheter which was replaced in the ED on 07/24/2023. Urology asked to evaluate patient due to complicated UTI and question of voiding trial prior to discharge. Patient is known to the urology service, follows with Dr. Leong. He was seen in May 2023 for follow-up of urinary retention. He underwent office cystoscopy showing significantly enlarged lateral lobes of the prostate with obstructive signs. Severe trabeculation throughout the bladder. Large diverticulum on the posterior wall. At that time, plan was to maintain the Hanna catheter with monthly catheter changes with plans to reevaluate in 6 months. Patient was initiated on dual therapy for BPH with tamsulosin and finasteride. Patient examined at bedside today. Awake, resting bed on arrival. No acute distress. Extremely hard of hearing. Hanna intact, draining clear yellow urine. Allergies Allergy/AdvReac Type Severity Reaction Status Date / Time lisinopril Allergy Severe Swelling Verified 05/26/23 14:21 of Face/Lips/Tongue Home Medications Medication Instructions Recorded Confirmed Type atorvastatin 40 mg tablet 40 mg PO QAM 11/08/21 07/24/23 History apixaban 5 mg tablet (Eliquis) 5 mg PO BID #60 tabs 11/11/21 07/24/23 Rx insulin aspart U-100 100 unit/mL 5 unit subcut TIDM 05/16/22 07/24/23 History (3 mL) subcutaneous pen (Novolog FlexPen U-100 Insulin aspart) metformin 500 mg tablet,extended 1,000 mg PO QAM 05/16/22 07/24/23 History release 24 hr metoprolol tartrate 25 mg tablet 25 mg PO BID 05/16/22 07/24/23 History furosemide 40 mg tablet 40 mg PO QPM 11/20/22 07/24/23 History furosemide 40 mg tablet 80 mg PO QAM 11/20/22 07/24/23 History finasteride 5 mg tablet 5 mg PO DAILY #30 tabs 05/20/23 07/24/23 Rx tamsulosin 0.4 mg capsule 0.4 mg PO DAILY #30 caps 05/20/23 07/24/23 Rx insulin degludec 100 20 unit subcut HS 06/17/23 07/24/23 History unit-liraglutide 3.6 mg/mL(3 mL) subcutaneous pen (Xultophy 100/3.6) Patient History Medical History Abnormal urinalysis Acute hyperglycemia Acute hypokalemia Atrial fibrillation with rapid ventricular response Bilateral edema of lower extremity BPH (benign prostatic hyperplasia) Cellulitis D-dimer, elevated Diabetes mellitus, type II DM type 2 (diabetes mellitus, type 2) DVT prophylaxis Dyslipidemia Dyspnea Edema of both legs Elevated brain natriuretic peptide (BNP) level Hearing loss Heart failure with preserved ejection fraction HTN (hypertension) Hypertension Hypokalemia Leukocytosis Moderate aortic stenosis Paroxysmal atrial fibrillation Paroxysmal atrial fibrillation Premature atrial complexes Puncture wound of foot, right Right foot infection Volume overload Surgical History H/O shoulder surgery History of ear surgery age 19, mastoid S/P foot surgery, left Family History Brother Diabetes Social History Smoking Status: Former smoker Tobacco Type: Cigarettes Second Hand Exposure: No; Do You Dip or Chew Tobacco: No; Hx Alcohol Use: No Hx Substance Use: No Preferred Language: Zambian Communication Ability: HOOPA Communication Ability Comment: pt very hard of hearing Senior Publications Specialist Required: No Beliefs That Will Affect Care: None marital status: Current Living Situation: Alone Current Living Situation Comment: lives in a building that has no running water How many Children do You have: 3 Feels Safe at Home: Hesitant to Answer Assistive Devices: Cane Review of Systems 2 Review of Systems: All systems reviewed & are unremarkable except as noted in HPI & below Physical Exam Constitutional: no acute distress ENMT: Ears: + hearing impairment Respiratory: no respiratory distress and no labored breathing Musculoskeletal: Head/Neck/Chest: normocephalic Skin: No visible rashes or lesions to exposed skin areas Neurologic: moves all extremities and awake Psychiatric: Orientation: alert and cooperative Genitourinary: Hanna catheter intact, draining clear yellow urine Results & Data Vital Signs (Past 12 Hours) Vital Signs Temp Pulse Resp BP Pulse Ox O2 Del Method 08/05/23 07:07 36.5 C 60 16 124/62 96 Room Air 08/05/23 03:48 36.3 C L 61 16 119/66 97 Room Air PG Care Time/CCT Total # of Minutes Spent Total Time Spent with Patient: Total time spent is greater than 50% in coordination of care (as documented) at patient's floor/unit and/or counseling patient: Coding Level of Care Code 41465 INT INP/OBS CARE 2/55MIN Diagnoses Indwelling Hanna catheter present Z97.8 BPH (benign prostatic hyperplasia) N40.0 Catheter-associated urinary tract infection T83.511A; N39.0
--- NOTE | 2023-08-05 15:27 | Hospitalist Progress Note ---
Date of Service August 05, 2023 Assessment & Plan (1) DKA (diabetic ketoacidosis): (2) High anion gap metabolic acidosis: (3) Metabolic encephalopathy: (4) Paroxysmal atrial fibrillation: (5) CESAR (acute kidney injury): (6) Elevated troponin: (7) Acute electrocardiogram changes: (8) Chronic heart failure with preserved ejection fraction (HFpEF): (9) Severe aortic stenosis: Plan Patient is Critically ill 77-year-old male who has a significant past medical history of medication noncompliance, T2DM, PAF anticoagulated on Eliquis, chronic HFpEF, moderate to severe aortic stenosis, HTN, HLD and BPH who presents to ED via EMS secondary to altered mental status. Sepsis secondary to Bacteremia, Complicated UTI In the setting of indwelling Hanna catheter High anion gap metabolic acidosis H/O BPH/obstructive uropathy --CT ABD:Wall thickening of the urinary bladder with indwelling Hanna catheter. Correlate for UTI. Hepatic steatosis. Sludge in the gallbladder. No hydronephrosis or nephrolithiasis. Mild fullness of the bilateral renal collecting systems. Diverticulosis, without acute diverticulitis. No small bowel obstruction. No free intraperitoneal air . -- Blood and urine culture grew Serratia marcescens -- Repeat blood cultures negative --Hanna catheter was exchanged while in ED per record --Completed IV cefepime course --Received IV fluids --Appreciate ID input --Appreciate urology input Plan to continue Hanna catheter as recommended by urology. Restart Flomax, finasteride HHS--POA in the setting of Sepsis Metabolic encephalopathy --CT Head:No acute intracranial hemorrhage, midline shift, or mass effect. -- HbA1c 10.7 Mental status back to baseline Continue insulin per protocol Monitor blood glucose levels CESAR/ATN Likely from prerenal, sepsis Leg Edema --Venous Doppler:No evidence of deep venous thrombus within the bilateral lower extremities although exam technically compromised, as above. 3.6 x 0.7 x 2.4 cm right popliteal cyst. Baseline Cr 0.8 Cr 2.3 today Appreciate nephrology input IV diuretics as needed Atrial Fibrillation in RVR In the setting of sepsis H/O A fib Required cardioversion in ICU as per record Currently in sinus IV Amiodarone discontinued Restarted metoprolol On Eliquis for anticoagulation Elevated troponin Likely demand ischemia ECHO no regional wall motion abnormality Chronic HFpEF Severe Aortic Stenosis HTN HLD Daily weights/strict intake and output recent echo: 04/2023 EF 50-55%, moderate concentric LVH, moderate to severe aortic stenosis, moderate mitral calcification, RV normal in size and function Plan to resume diuretics as able Monitor volume status DVT Px: Eliquis CODE STATUS DNI DNR Disposition Pending, Office of ageing involved PT/OT evaluation Case management to help with discharge planning Admission and Anticipated Discharge Date Admission Date: July 24, 2023 Subjective Patient is seen and examined at bedside Poor historian secondary to significant hearing impairment Offers no new complaints this morning Lying in bed comfortably during my encounter Discussed with nephrology today Urinating well, leg swelling improving Saturating well on room air Review of Systems Review of Systems: All systems reviewed & are unremarkable except as noted in Subjective Physical Exam Physical Exam: Physical Exam: Vitals signs as noted above General Appearance:Moderately built and nourished, no apparent distress Head: normocephalic, Atraumatic Eyes: normal inspection, EOMI Neck: supple, Trachea midline Respiratory/Chest: Normal breath sounds, CTA, No accessory muscle use Cardiovascular: S1, S2, + murmur Abdomen/GI:Soft, Non tender, Bowel sounds present Extremities/Musculoskeletal:normal inspection, 1+ B/L LE edema + Hanna Neurologic/Psych:AAO, grossly no focal neurological deficits, +Hearing impairment Skin: normal color, warm Results & Data Results & Data Vital Signs (Past 12 Hours) Vital Signs Temp Pulse Resp BP Pulse Ox O2 Del Method 08/05/23 07:07 36.5 C 60 16 124/62 96 Room Air 08/05/23 03:48 36.3 C L 61 16 119/66 97 Room Air Laboratory Results Short CBC 08/05/23 Range/Units 05:37 WBC 11.48 H (4.8-10.8) K/ul Hgb 10.7 L (14.0-18.0) g/dl Hct 33.0 L (42.0-52.0) % Plt Count 400 (130-400) K/uL BMP 08/05/23 05:37 Sodium 135 L Potassium 4.2 Chloride 97 L Carbon Dioxide 31 BUN 65 H Creatinine 2.37 H Glucose 139 H Calcium 8.4 L
[2023-08-06 06:49] LABS: Hematocrit (blood only) 33.1 % (42.0-52.0); Hemoglobin 11.1 g/dl (14.0-18.0); Mean Corpuscular Hemoglobin 28.6 pg (25.0-34.0); Mean Corpuscular Hgb Conc 33.5 g/dL (32.0-36.0); Mean Corpuscular Volume 85.3 fL (80.0-100.0); Mean Platelet Volume 10.2 fL (9.4-12.4); Platelet Count 353 K/uL (130-400); RDW Coefficient of Variation 13.7 % (11.5-14.5); RDW Standard Deviation 42.3 fL (36.4-46.3); Red Blood Count 3.88 M/uL (4.70-6.10); White Blood Count 10.36 K/ul (4.8-10.8)
[2023-08-06 07:21] LABS: Calcium 8.5 mg/dl (8.6-10.3); Creatinine Clr Calc Pharmacy 31.5 ml/min; Est GFR (Non-African American) 33.7 ml/min; Magnesium 1.9 mg/dl (1.7-2.4); Potassium 4.1 mmol/L (3.5-5.1)
[2023-08-06] MEDS: FINASTERIDE 5 MG TAB PO SCH (08:11)
[2023-08-06] MEDS: TAMSULOSIN HCL 0.4 MG CAP PO SCH (08:11)
[2023-08-06] MEDS: INSULIN ASPART PER UNIT CHARGE SC SCH ×4 (08:13→21:00)
[2023-08-06] MEDS: PANTOprazole 40 MG TAB PO SCH (08:15)
[2023-08-06] MEDS: METOPROLOL TARTRATE 25 MG TAB PO SCH ×3 (08:15→21:05)
[2023-08-06] MEDS: LANTUS PER UNIT CHARGE SC SCH (08:15)
[2023-08-06] MEDS: APIXABAN 5 MG TABLET PO SCH ×3 (08:15→21:05)
--- NOTE | 2023-08-06 10:24 | Pharmacy Report ---
Pharmacy Glycemic Short Note 2 - Date of Service August 06, 2023 - Glycemic Short BSG Results (Last 24 hours): 08/05/23 08/05/23 08/05/23 11:21 12:54 16:07 Glucose POC Glucose 74 130 H 228 H 08/05/23 08/06/23 08/06/23 20:35 05:58 07:31 Glucose 90 POC Glucose 228 H 103 H OUTPATIENT ANTIDIABETIC REGIMEN: * Xultophy 20 units SC HS * Novolog 5 units SC AC * HbA1c: 10.7% (04/29/23) ASSESSMENT: 08/06: * SCr 1.87 this morning, down from 2.37 * Fasting BSG 90 mg/dL on labs, 103 mg/dL on POC BSG. Will reduce lantus to 32 units today (35 yesterday) * Novolog loosened yesterday with BSG 74 mg/dL at lunchtime; trended up rest of day; will tighten back to previous carb ratio * Loosened breakfast for this morning given low at lunch yesterday- monitor 08/04: * Stressors stable - ordered T2DM diet * AM fasting BSG above goal range for many days (with the exception of 08/02, but BSG trended up overnight that night). Will increase Lantus * Dinnertime BSG below goal yesterday. Will loosen Novolog in the latter part of the day, particularly at lunch, to help prevent hypoglycemia. 08/03: * BSGs yesterday [phone] mg/dL. Received 30 units of basal and 44 units of bolus yesterday. * Breakfast insulin given ~0900 which may have contributed to high BSG at lunch and subsequent low with dinner. Will loosen CR/CF with lunch today, however as patient was also below goal at dinner on 08/01.- monitor * Fasting 190 mg/dL this morning- monitor; consider increase in basal if trend continues (125 mg/dL yesterday). 07/31: * BSGs elevated the last 24h: 774-059-136-229mg/dL. Received 23 units of basal a nd 42 units of bolus insulin yesterday. * Further titrate basal, 30 units. Novolog carb ratio tightened at breakfast and lunch. Continue with looser parameters at dinner and HS. 07/30: * BSGs 811-06-126-252mg/dL the last 24h. Received 20 units of basal and 42 units of bolus insulin yesterday. * Other stressors stable. * Titrate basal given elevated fasting to 23 units. Novolog further tightened at breakfast. Will loosen lunch, dinner, HS parameters given tendency to go low at night (continue max 15 units) 07/29: * BSGs 55-80-692-283mg/dl the last 24h. Received no basal and 38 units of bolus insulin yesterday. * Stressors stable. * Given low BSGs yesterday at dinner, Lantus was held. Resumed this AM at 20 units as fasting was 191mg/dL. Novolog loosened back to 20/6 today and again BSG is high at lunch. Will use a tighter carb ratio tomorrow at breakfast with looser ratio at all other times (max 15 units at lunch, dinner and HS). 07/28: * BSGs 252-279-406-229mg/dL the last 24h. Received 15 units of basal and 25 units of bolus insulin yesterday. * Tolerating diet, continues on cefepime. * Increase basal to 20 units given elevated fasting. Tighten novolog for improved prandial coverage and improved PO intake. 07/27: * BSGs [phone]/dL the last 24h. Received 12 units of basal and 11 units of bolus insulin yesterday. * Diet reinitiated and continues on antibiotics. * Increase basal to 15 units at HS given slightly elevated fasting. Novolog parameters tightened with advancement of diet. 07/26: * Selvin received 59 units of insulin yesterday, 40 units basal + 19 units bolus. BSGs were: [phone] mg/dL. * Fasting BSG was below goal at 84 mg/dL this AM. Will reduce basal significantly given NPO and dextrose discontinued. Will loosen Novolog as well while NPO. 07/25: * 77 yo M admitted on 07/24/23 secondary to HHS/CESAR/Afib/Resp failure. Pharmacy has been consulted to assist with inpatient glycemic management. Patient is a Type 2 diabetic as an outpatient. Please refer to outpatient regimen and most recent HbA1c above. * BSG was 768 mg/dL upon arrival yesterday. Started on an insulin drip. Received ~ 62 units via drip over a 12 hour period. * Will give a dose of basal insulin this morning in hopes of transitioning. Anesthesia Attending okay with transitioning today. * RN shut insulin drip off right after Lantus administration without overlap due to compatibility issues. Discontinued dextrose and potassium containing fluids. Anesthesia Attending would like 1/2 NS running at 75 mL/hr. * Remains NPO. No enteral nutrition yet. Cefepime for infection. Amiodarone and Heparin drips running. * Will start Novolog q4 for time being. PLAN FOR INPATIENT GLYCEMIC CONTROL: * Basal insulin * Lantus 32 units SC daily * Bolus insulin * NovoLog per scale ACHS * Goal Range: Low 110 mg/dL - High 140 mg/dL * Correction Factor: 25 mg/dL/unit (breakfast), 30 mg/dL/unit (lunch/dinner/ HS) * Nutritional / Prandial insulin per carb ratio of 1 unit per 6 grams (breakfast), 8 grams (lunch/dinner/HS) CHO consumed
--- NOTE | 2023-08-06 10:33 | Nephrology Progress Note ---
Date of Service August 06, 2023 Assessment & Plan Admission and Anticipated Discharge Date Admission Date: July 24, 2023 Subjective Assessment & Plan (1) CESAR (acute kidney injury): Plan: Patient with acute kidney injury due to ischemic ATN in setting of sepsis. Creatinine on admission was 3.2 from a normal baseline of 1.0. massive polyuria, suggestive of recovery phase of ATN in setting of diuretics. Electrolytes are stable no indication for dialysis. Avoid hypotension. Avoid contrast or other nephrotoxins. Standing weight daily history of obstructive uropathy and failed or near failed voiding trial prior to admission; so would not remove yee --urology said same yesterday. From renal standpoint patient is ready for discharge. He will need renal follow-up in 1 to 2 weeks postdischarge. Patient to be discharged with Yee and urology plus Nephrology follow-up outpatient. No need of diuretics given massive urine output last 5 days (2) Bacteremia: Plan: arriaga sensitive Serratia marescens bacteremia w/ presume source >> 9 cxs negative at 48 hrs and not further updated today so far. S/p IV antibiotics Subjective Seen for acute kidney injury due to ischemic ATN in setting of sepsis. He is now in post ATN diuresis phase.Uo 4800 ml yesterday Breathing has improved. Leg swelling has subsided. Review of Systems Review of Systems: All other systems were reviewed and negative except as noted in HPI Physical Exam Physical Exam: General exam: Appears comfortable, no acute distress HEENT: Pupils are equal and reactive to light. Extremely hard of hearing Neck: No JVD, neck is supple trachea is midline Respiratory system: Clear breath sounds bilaterally. Gastrointestinal: Abdomen is soft, non distended, non tender, bowel sounds are present CVS: Regular rate and rhythm. No murmurs, rubs or gallops Musculoskeletal: No joint or muscle tenderness Extremities: Non tender, no edema, peripheral pulses are present Neuro: Oriented, no tremors, no focal neurological deficits Skin: No rashes Results & Data Vital Signs (Past 12 Hours) Vital Signs Temp Pulse Pulse Resp BP Pulse Ox O2 Del Method 08/06/23 08:00 36.5 C 66 18 139/62 96 Room Air 08/06/23 03:24 36.3 C L 65 16 122/68 95 Room Air 08/05/23 23:00 70 08/05/23 22:54 36.6 C 61 18 148/74 H 95 Room Air
[2023-08-06] MEDS: CARBOHYDRATES FOR HYPOGLYCEMIA PO PRN (16:41)
--- NOTE | 2023-08-06 17:02 | Hospitalist Progress Note ---
Date of Service August 06, 2023 Assessment & Plan (1) DKA (diabetic ketoacidosis): (2) High anion gap metabolic acidosis: (3) Metabolic encephalopathy: (4) Paroxysmal atrial fibrillation: (5) CESAR (acute kidney injury): (6) Elevated troponin: (7) Acute electrocardiogram changes: (8) Chronic heart failure with preserved ejection fraction (HFpEF): (9) Severe aortic stenosis: Plan Patient is Critically ill 77-year-old male who has a significant past medical history of medication noncompliance, T2DM, PAF anticoagulated on Eliquis, chronic HFpEF, moderate to severe aortic stenosis, HTN, HLD and BPH who presents to ED via EMS secondary to altered mental status. Sepsis secondary to Bacteremia, Complicated UTI In the setting of indwelling Hanna catheter High anion gap metabolic acidosis H/O BPH/obstructive uropathy --CT ABD:Wall thickening of the urinary bladder with indwelling Hanna catheter. Correlate for UTI. Hepatic steatosis. Sludge in the gallbladder. No hydronephrosis or nephrolithiasis. Mild fullness of the bilateral renal collecting systems. Diverticulosis, without acute diverticulitis. No small bowel obstruction. No free intraperitoneal air . -- Blood and urine culture grew Serratia marcescens -- Repeat blood cultures negative --Hanna catheter was exchanged while in ED per record --Completed IV cefepime course --Received IV fluids --Appreciate ID input --Appreciate urology input Plan to continue Hanna catheter as recommended by urology. Restarted Flomax, finasteride Leukocytosis resolved Waiting for placement HHS--POA in the setting of Sepsis Metabolic encephalopathy --CT Head:No acute intracranial hemorrhage, midline shift, or mass effect. -- HbA1c 10.7 Mental status back to baseline CESAR/ATN Likely from prerenal, sepsis Leg Edema Chronic obstructive uropathy --Venous Doppler:No evidence of deep venous thrombus within the bilateral lower extremities although exam technically compromised, as above. 3.6 x 0.7 x 2.4 cm right popliteal cyst. Baseline Cr 0.8 Cr 1.87 today Appreciate nephrology, Urology input IV diuretics as needed Continue Hanna catheter Needs follow-up with urology, nephrology upon discharge Atrial Fibrillation in RVR In the setting of sepsis H/O A fib Required cardioversion in ICU as per record Currently in sinus IV Amiodarone discontinued Restarted metoprolol On Eliquis for anticoagulation Elevated troponin Likely demand ischemia ECHO no regional wall motion abnormality Chronic HFpEF Severe Aortic Stenosis HTN HLD Daily weights/strict intake and output recent echo: 04/2023 EF 50-55%, moderate concentric LVH, moderate to severe aortic stenosis, moderate mitral calcification, RV normal in size and function Plan to resume diuretics as able Monitor volume status DVT Px: Eliquis CODE STATUS DNI DNR Disposition Pending, Office of ageing involved PT/OT evaluation Case management to help with discharge planning Admission and Anticipated Discharge Date Admission Date: July 24, 2023 Subjective Patient is seen and examined at bedside Poor historian secondary to significant hearing impairment No new complaints Waiting for placement Renal function improving Review of Systems Review of Systems: All systems reviewed & are unremarkable except as noted in Subjective Physical Exam Physical Exam: Physical Exam: Vitals signs as noted above General Appearance:Moderately built and nourished, no apparent distress Head: normocephalic, Atraumatic Eyes: normal inspection, EOMI Neck: supple, Trachea midline Respiratory/Chest: Normal breath sounds, CTA, No accessory muscle use Cardiovascular: S1, S2, + murmur Abdomen/GI:Soft, Non tender, Bowel sounds present Extremities/Musculoskeletal:normal inspection, 1+ B/L LE edema + Hanna Neurologic/Psych:AAO, grossly no focal neurological deficits, +Hearing impairment Skin: normal color, warm Results & Data Results & Data Vital Signs (Past 12 Hours) Vital Signs Temp Pulse Resp BP Pulse Ox O2 Del Method 08/06/23 11:30 37.0 C 75 18 128/75 98 Room Air 08/06/23 08:00 Room Air 08/06/23 08:00 36.5 C 66 18 139/62 96 Room Air Laboratory Results Short CBC 08/06/23 Range/Units 05:58 WBC 10.36 (4.8-10.8) K/ul Hgb 11.1 L (14.0-18.0) g/dl Hct 33.1 L (42.0-52.0) % Plt Count 353 (130-400) K/uL BMP 08/06/23 05:58 Sodium 137 Potassium 4.1 Chloride 101 Carbon Dioxide 31 BUN 58 H Creatinine 1.87 H D Glucose 90 Calcium 8.5 L
[2023-08-07] MEDS: PANTOprazole 40 MG TAB PO SCH (08:30)
[2023-08-07] MEDS: METOPROLOL TARTRATE 25 MG TAB PO SCH ×2 (08:30→21:19)
[2023-08-07] MEDS: APIXABAN 5 MG TABLET PO SCH ×2 (08:30→21:19)
[2023-08-07] MEDS: TAMSULOSIN HCL 0.4 MG CAP PO SCH (08:30)
[2023-08-07] MEDS: FINASTERIDE 5 MG TAB PO SCH (08:30)
[2023-08-07] MEDS: LANTUS PER UNIT CHARGE SC SCH (08:37)
[2023-08-07] MEDS: INSULIN ASPART PER UNIT CHARGE SC SCH ×4 (08:38→21:55)
--- NOTE | 2023-08-07 09:30 | Nephrology Progress Note ---
Date of Service August 07, 2023 Assessment & Plan Admission and Anticipated Discharge Date Admission Date: July 24, 2023 Subjective Assessment & Plan (1) CESAR (acute kidney injury): Plan: Patient with acute kidney injury due to ischemic ATN in setting of sepsis. Creatinine on admission was 3.2 from a normal baseline of 1.0. massive polyuria, suggestive of recovery phase of ATN in setting of diuretics. Electrolytes are stable no indication for dialysis. Avoid hypotension. Avoid contrast or other nephrotoxins. Standing weight daily history of obstructive uropathy and failed or near failed voiding trial prior to admission; so would not remove yee --urology said same yesterday. From renal standpoint patient is ready for discharge. He will need renal follow-up in 1 to 2 weeks postdischarge. Patient to be discharged with Yee and urology plus Nephrology follow-up outpatient. No need of diuretics given massive urine output last 7 days Will sign off . Call, if new issues (2) Bacteremia: Plan: arriaga sensitive Serratia marescens bacteremia w/ presume source >> 924 cxs negative at 48 hrs and not further updated today so far. S/p IV antibiotics Subjective Seen for acute kidney injury due to ischemic ATN in setting of sepsis. He is now in post ATN diuresis phase.Uo 2900 ml yesterday Breathing has improved. Leg swelling has subsided. Review of Systems Review of Systems: All other systems were reviewed and negative except as noted in HPI Physical Exam Physical Exam: General exam: Appears comfortable, no acute distress HEENT: Pupils are equal and reactive to light. Extremely hard of hearing Neck: No JVD, neck is supple trachea is midline Respiratory system: Clear breath sounds bilaterally. Gastrointestinal: Abdomen is soft, non distended, non tender, bowel sounds are present CVS: Regular rate and rhythm. No murmurs, rubs or gallops Musculoskeletal: No joint or muscle tenderness Extremities: Non tender, no edema, peripheral pulses are present Neuro: Oriented, no tremors, no focal neurological deficits Skin: No rashes Results & Data Vital Signs (Past 12 Hours) Vital Signs Temp Pulse Resp BP Pulse Ox O2 Del Method 08/07/23 06:00 36.7 C 65 16 130/75 96 Room Air
[2023-08-07 09:31] LABS: BUN Creatinine Ratio 29.7 (10-20); Calcium 8.4 mg/dl (8.6-10.3); Creatinine Clr Calc Pharmacy 30.2 ml/min; Est GFR (African American) 37.1 ml/min; Potassium 5.1 mmol/L (3.5-5.1)
--- NOTE | 2023-08-07 14:21 | Pharmacy Report ---
Pharmacy Glycemic Short Note 2 - Date of Service August 07, 2023 - Glycemic Short BSG Results (Last 24 hours): 08/06/23 08/06/23 08/06/23 16:39 16:41 16:58 Glucose POC Glucose 55 L* 54 L* 66 L* 08/06/23 08/06/23 08/07/23 17:14 20:40 07:27 Glucose POC Glucose 130 H 216 H 137 H 08/07/23 08/07/23 08:50 11:48 Glucose 195 H POC Glucose 123 H OUTPATIENT ANTIDIABETIC REGIMEN: * Xultophy 20 units SC HS * Novolog 5 units SC AC * HbA1c: 10.7% (04/29/23) ASSESSMENT: 08/08: * Selvin received 59 units of insulin yesterday of which 32 were basal * Slight reduction (5%) in basal insulin based on yesterday's fasting BSG, will continue this dose since fasting BSG was in goal range today. * Lunchtime BSG elevated yesterday- tightened breakfast Novolog parameters to values in between 08/05 (which caused lunchtime low) and 08/06 (which led to hyperglycemia. * Hypoglycemia at dinnertime yesterday- likely due to overcorrection of lunchtime hyperglycemia- loosened lunch, dinner, and bedtime Novolog correction factor * No additional stressor noted at this time. 08/06: * SCr 1.87 this morning, down from 2.37 * Fasting BSG 90 mg/dL on labs, 103 mg/dL on POC BSG. Will reduce lantus to 32 units today (35 yesterday) * Novolog loosened yesterday with BSG 74 mg/dL at lunchtime; trended up rest of day; will tighten back to previous carb ratio * Loosened breakfast for this morning given low at lunch yesterday- monitor 08/04: * Stressors stable - ordered T2DM diet * AM fasting BSG above goal range for many days (with the exception of 08/02, but BSG trended up overnight that night). Will increase Lantus * Dinnertime BSG below goal yesterday. Will loosen Novolog in the latter part of the day, particularly at lunch, to help prevent hypoglycemia. 08/03: * BSGs yesterday [phone] mg/dL. Received 30 units of basal and 44 units of bolus yesterday. * Breakfast insulin given ~0900 which may have contributed to high BSG at lunch and subsequent low with dinner. Will loosen CR/CF with lunch today, however as patient was also below goal at dinner on 08/01.- monitor * Fasting 190 mg/dL this morning- monitor; consider increase in basal if trend continues (125 mg/dL yesterday). 07/31: * BSGs elevated the last 24h: [phone]/dL. Received 23 units of basal and 42 units of bolus insulin yesterday. * Further titrate basal, 30 units. Novolog carb ratio tightened at breakfast and lunch. Continue with looser parameters at dinner and HS. 07/30: * BSGs 257-02-179-252mg/dL the last 24h. Received 20 units of basal and 42 units of bolus insulin yesterday. * Other stressors stable. * Titrate basal given elevated fasting to 23 units. Novolog further tightened at breakfast. Will loosen lunch, dinner, HS parameters given tendency to go low at night (continue max 15 units) 07/29: * BSGs 66-31-024-283mg/dl the last 24h. Received no basal and 38 units of bolus insulin yesterday. * Stressors stable. * Given low BSGs yesterday at dinner, Lantus was held. Resumed this AM at 20 units as fasting was 191mg/dL. Novolog loosened back to 20/6 today and again BSG is high at lunch. Will use a tighter carb ratio tomorrow at breakfast with looser ratio at all other times (max 15 units at lunch, dinner and HS). 07/28: * BSGs [phone]/dL the last 24h. Received 15 units of basal and 25 units of bolus insulin yesterday. * Tolerating diet, continues on cefepime. * Increase basal to 20 units given elevated fasting. Tighten novolog for improved prandial coverage and improved PO intake. 07/27: * BSGs [phone]/dL the last 24h. Received 12 units of basal and 11 units of bolus insulin yesterday. * Diet reinitiated and continues on antibiotics. * Increase basal to 15 units at HS given slightly elevated fasting. Novolog parameters tightened with advancement of diet. 07/26: * Selvin received 59 units of insulin yesterday, 40 units basal + 19 units bolus. BSGs were: 128-296-621-302-200-238 mg/dL. * Fasting BSG was below goal at 84 mg/dL this AM. Will reduce basal significantly given NPO and dextrose discontinued. Will loosen Novolog as well while NPO. 07/25: * 77 yo M admitted on 07/24/23 secondary to HHS/CESAR/Afib/Resp failure. Pharmacy has been consulted to assist with inpatient glycemic management. Patient is a Type 2 diabetic as an outpatient. Please refer to outpatient regimen and most recent HbA1c above. * BSG was 768 mg/dL upon arrival yesterday. Started on an insulin drip. Received ~ 62 units via drip over a 12 hour period. * Will give a dose of basal insulin this morning in hopes of transitioning. Office Manager Receptionist okay with transitioning today. * RN shut insulin drip off right after Lantus administration without overlap due to compatibility issues. Discontinued dextrose and potassium containing fluids. Office Manager Receptionist would like 1/2 NS running at 75 mL/hr. * Remains NPO. No enteral nutrition yet. Cefepime for infection. Amiodarone and Heparin drips running. * Will start Novolog q4 for time being. PLAN FOR INPATIENT GLYCEMIC CONTROL: * Basal insulin * Lantus 32 units SC daily * Bolus insulin * NovoLog per scale ACHS * Goal Range: Low 110 mg/dL - High 140 mg/dL * Correction Factor: 20 mg/dL/unit (breakfast), 40 mg/dL/unit (lunch/dinner/ HS) * Nutritional / Prandial insulin per carb ratio of 1 unit per 5 grams (breakfast), 9 grams (lunch/dinner/HS) CHO consumed
--- NOTE | 2023-08-07 16:49 | Hospitalist Progress Note ---
Date of Service August 07, 2023 Assessment & Plan (1) DKA (diabetic ketoacidosis): (2) High anion gap metabolic acidosis: (3) Metabolic encephalopathy: (4) Paroxysmal atrial fibrillation: (5) CESAR (acute kidney injury): (6) Elevated troponin: (7) Acute electrocardiogram changes: (8) Chronic heart failure with preserved ejection fraction (HFpEF): (9) Severe aortic stenosis: Plan Patient is Critically ill 77-year-old male who has a significant past medical history of medication noncompliance, T2DM, PAF anticoagulated on Eliquis, chronic HFpEF, moderate to severe aortic stenosis, HTN, HLD and BPH who presents to ED via EMS secondary to altered mental status. Sepsis secondary to Bacteremia, Complicated UTI In the setting of indwelling Hanna catheter High anion gap metabolic acidosis H/O BPH/obstructive uropathy --CT ABD:Wall thickening of the urinary bladder with indwelling Hanna catheter. Correlate for UTI. Hepatic steatosis. Sludge in the gallbladder. No hydronephrosis or nephrolithiasis. Mild fullness of the bilateral renal collecting systems. Diverticulosis, without acute diverticulitis. No small bowel obstruction. No free intraperitoneal air . -- Blood and urine culture grew Serratia marcescens -- Repeat blood cultures negative --Hanna catheter was exchanged while in ED per record --Completed IV cefepime course on 08/03 --Received IV fluids --Appreciate ID input --Appreciate urology input Plan to continue Hanna catheter as recommended by urology Restarted Flomax, finasteride Leukocytosis resolved Waiting for placement [facility]--POA in the setting of Sepsis Metabolic encephalopathy --CT Head:No acute intracranial hemorrhage, midline shift, or mass effect. -- HbA1c 10.7 Mental status back to baseline CESAR/ATN Likely from prerenal, sepsis Leg Edema Chronic obstructive uropathy --Venous Doppler:No evidence of deep venous thrombus within the bilateral lower extremities although exam technically compromised, as above. 3.6 x 0.7 x 2.4 cm right popliteal cyst. Baseline Cr 0.8 Cr 1.87 today Appreciate nephrology, Urology input IV diuretics as needed Continue Hanna catheter Needs follow-up with urology, nephrology upon discharge Atrial Fibrillation in RVR In the setting of sepsis H/O A fib Required cardioversion in ICU as per record Currently in sinus IV Amiodarone discontinued Restarted metoprolol On Eliquis for anticoagulation Elevated troponin Likely demand ischemia ECHO no regional wall motion abnormality Chronic HFpEF Severe Aortic Stenosis HTN HLD Daily weights/strict intake and output recent echo: 04/2023 EF 50-55%, moderate concentric LVH, moderate to severe aortic stenosis, moderate mitral calcification, RV normal in size and function Plan to resume diuretics as able Monitor volume status DVT Px: Eliquis CODE STATUS DNI DNR Disposition Pending, Office of ageing involved PT/OT evaluation Case management to help with discharge planning Admission and Anticipated Discharge Date Admission Date: July 24, 2023 Supervising Physician Co-Signing Physician Notes Patient is seen and examined at bedside. Clinically no significant change from yesterday. Patient offers no new complaints. Waiting for rehab placement. Renal function fairly stable. Noted rising potassium 5.1 today. Physical Exam: Vitals signs as noted above General Appearance:Moderately built and nourished, no apparent distress Head: normocephalic, Atraumatic Eyes: normal inspection, EOMI Neck: supple, Trachea midline Respiratory/Chest: Normal breath sounds, CTA, No accessory muscle use Cardiovascular: S1, S2, + murmur Abdomen/GI:Soft, Non tender, Bowel sounds present Extremities/Musculoskeletal:normal inspection, 1+ B/L LE edema + Hanna Neurologic/Psych:AAO, grossly no focal neurological deficits, +Hearing impairment Skin: normal color, warm Sepsis secondary to Bacteremia, Complicated UTI In the setting of indwelling Hanna catheter High anion gap metabolic acidosis H/O BPH/obstructive uropathy HHS Continue current management Plan to discharged once placement available Continue to monitor renal function I personally reviewed the record. Patient is interviewed and examined at bedside. Patient's care is coordinated with Mana Ramos PA-C. Please refer to the documentation above for details of patient's presentation and for discussion of other issues. Subjective Seen and examined in 378-1. Poor historian due to significant hearing impairment. Denies any new complaints or issues overnight. Comfortable, awaiting placement. No F/C, chest pain, abdominal pain. Review of Systems Review of Systems: Limited 2/2 above, see HPI for pertinent ROS Physical Exam Physical Exam: Gen: WD/WN, NAD, sitting up in bed watching TV, A&Ox3 HEENT: Normocephalic, atraumatic, conjunctivae moist, sclerae anicteric, mucous membranes moist, extremely hard of hearing Lung: Clear to Auscultation bilaterally, no wheezes/rales/rhonchi Heart: Regular rate, regular rhythm, + systolic murmur, rubs, or gallops Abdomen: Soft, NT, ND +BS x 4 Extremities: no edema Skin: Warm, no rash Results & Data Results & Data Vital Signs (Past 12 Hours) Vital Signs Temp Pulse Resp BP Pulse Ox O2 Del Method 08/07/23 16:39 36.5 C 61 18 116/74 96 Room Air 08/07/23 06:00 36.7 C 65 16 130/75 96 Room Air Laboratory Results [facility] 08/07/23 08:50 Sodium 133 L Potassium 5.1 D Chloride 97 L Carbon Dioxide 30 BUN 58 H Creatinine 1.95 H Glucose 195 H Calcium 8.4 L Diagnostic Findings Chest X-Ray 07/24/23 13:18 XR chest 1V portable HISTORY: Sepsis COMPARISON: Chest 04/29/2023. FINDINGS: No pneumothorax. No pleural effusions. The cardiac silhouette remains mildly enlarged. No evidence for pulmonary edema. No new focal lung consolidat ions to suggest a pneumonia. No acute fractures identified. IMPRESSION: No significant change compared to the prior study. No acute process. ACT 112: Negative or not required by law. Electronically signed by: Del Blackburn M.D. 07/24/2023 1:43 PM Abdomen/Pelvis CT 07/24/23 15:15 Exam(s): CT ABDOMEN + PELVIS Without Contrast EXAM: CT Abdomen and Pelvis Without Intravenous Contrast CLINICAL HISTORY: Reason for exam: sepsis, ?UTI. TECHNIQUE: Axial computed tomography images of the abdomen and pelvis without intravenous contrast. CTDI is 26.62 mGy and DLP is 1218.87 mGy-cm. Automated exposure control was utilized for the study. A dose lowering technique was utilized adhering to the principles of ALARA. COMPARISON: No relevant prior studies available. FINDINGS: Lung bases: Unremarkable. No mass. No consolidation. Mediastinum: Small hiatal hernia. ABDOMEN: Liver: Hepatic steatosis. Gallbladder and bile ducts: Sludge in the gallbladder. No calcified stones. No ductal dilation. Pancreas: Atrophy of the pancreas. No ductal dilation. Spleen: Unremarkable. No splenomegaly. Adrenals: Unremarkable. No mass. Kidneys and ureters: No hydronephrosis or nephrolithiasis. Mild fullness of the bilateral renal collecting systems. Stomach and bowel: Diverticulosis, without acute diverticulitis. No small bowel obstruction. No free intraperitoneal air . PELVIS: Appendix: No findings to suggest acute appendicitis. Bladder: Wall thickening of the urinary bladder with indwelling Hanna catheter. Correlate for UTI. No stones. Reproductive: Unremarkable as visualized. ABDOMEN and PELVIS: Intraperitoneal space: Unremarkable. No free air. No significant fluid collection. Bones/joints: Degenerative changes of the spine. No acute fracture. No dislocation. Soft tissues: Unremarkable. Vasculature: Atherosclerotic changes of the aorta. No abdominal aortic aneurysm. Lymph nodes: Unremarkable. No enlarged lymph nodes. IMPRESSION: 1. Wall thickening of the urinary bladder with indwelling Hanna catheter. Correlate for UTI. 2. Hepatic steatosis. 3. Sludge in the gallbladder. 4. No hydronephrosis or nephrolithiasis. Mild fullness of the bilateral renal collecting systems. 5. Diverticulosis, without acute diverticulitis. No small bowel obstruction. No free intraperitoneal air . Electronically signed by: Shawn Trotter MD 07/24/23 19:[address] 07/24/23 15:15 Exam(s): CT HEAD Without Contrast EXAM: CT Head Without Intravenous Contrast CLINICAL HISTORY: Reason for exam: ams. TECHNIQUE: Axial computed tomography images of the head/brain without intravenous contrast. CTDI is 37.78 mGy and DLP is 546.36 mGy-cm. Automated exposure control was utilized for the study. A dose lowering technique was utilized adhering to the principles of ALARA. COMPARISON: No relevant prior studies available. FINDINGS: No acute intracranial hemorrhage. No midline shift or mass effect. The territorial franco-white matter differentiation is maintained throughout. Age-related cerebral volume loss. Periventricular and subcortical white matter hypoattenuation, consistent with chronic microangiopathy. The visualized orbits appear grossly unremarkable. The calvarium is intact. The visualized paranasal sinuses and mastoid air cells are grossly clear. IMPRESSION: No acute intracranial hemorrhage, midline shift, or mass effect. Electronically signed by: Shawn Trotter MD 07/24/23 19:48 PM Venous Doppler Study 07/26/23 00:00 BILATERAL LOWER EXTREMITY VENOUS DOPPLER CLINICAL HISTORY: leg pain COMPARISON STUDY: Right lower extremity venous Doppler ultrasound May 16, 2022. Bilateral lower extremity venous Doppler ultrasound November 08, 2021. TECHNIQUE: Sonography of the deep venous system of the bilateral lower extre mities was performed. Compression and augmentation were evaluated. FINDINGS: Evaluation of the calf vessels was suboptimal due to edema. Left popliteal vein was not well-visualized due to difficulty positioning. The bilateral common femoral, superficial femoral and popliteal veins were compressible. Augmentation was normal. Flow was shown within the deep calf vessels. Note is made of a 3.6 x 0.7 x 2.4 cm right popliteal cyst. IMPRESSION: 1. No evidence of deep venous thrombus within the bilateral lower extremities although exam technically compromised, as above. 2. 3.6 x 0.7 x 2.4 cm right popliteal cyst. ACT 112: Negative or not required by law. Electronically signed by: Marco Mcpherson M.D. 07/26/2023 7:32 AM Chest X-Ray 07/31/23 08:00 XR chest 1V portable CLINICAL HISTORY: HF pt gaining wt > check plm vasc congestion TECHNIQUE: Single frontal radiograph of the chest was obtained. Comparison: Comparison is made to chest radiograph 07/24/2023 FINDINGS: No lines and tubes are seen. Cardiomegaly is noted. The lungs are clear. No evidence of pleural effusion or pneumothorax. IMPRESSION: Cardiomegaly without significant pulmonary vascular congestion. ACT 112: Negative or not required by law. Electronically signed by: Anderson Serra M.D. 07/31/2023 8:40 AM
[2023-08-08 07:06] LABS: Hematocrit (blood only) 32.1 % (42.0-52.0); Hemoglobin 10.5 g/dl (14.0-18.0); Mean Corpuscular Hemoglobin 28.5 pg (25.0-34.0); Mean Corpuscular Hgb Conc 32.7 g/dL (32.0-36.0); Mean Platelet Volume 10.3 fL (9.4-12.4); Platelet Count 347 K/uL (130-400); RDW Coefficient of Variation 13.5 % (11.5-14.5); RDW Standard Deviation 42.5 fL (36.4-46.3); Red Blood Count 3.69 M/uL (4.70-6.10); White Blood Count 9.21 K/ul (4.8-10.8)
[2023-08-08 07:30] LABS: BUN Creatinine Ratio 29.5 (10-20); Calcium 8.3 mg/dl (8.6-10.3); Creatinine Clr Calc Pharmacy 30.5 ml/min; Est GFR (African American) 37.6 ml/min; Est GFR (Non-African American) 32.4 ml/min; Potassium 4.2 mmol/L (3.5-5.1)
[2023-08-08] MEDS: METOPROLOL TARTRATE 25 MG TAB PO SCH ×2 (07:39→20:32)
[2023-08-08] MEDS: APIXABAN 5 MG TABLET PO SCH ×2 (08:41→20:33)
[2023-08-08] MEDS: TAMSULOSIN HCL 0.4 MG CAP PO SCH (08:41)
[2023-08-08] MEDS: PANTOprazole 40 MG TAB PO SCH (08:41)
[2023-08-08] MEDS: FINASTERIDE 5 MG TAB PO SCH (08:41)
[2023-08-08] MEDS: INSULIN ASPART PER UNIT CHARGE SC SCH ×4 (08:43→21:51)
[2023-08-08] MEDS: LANTUS PER UNIT CHARGE SC SCH (08:44)
--- NOTE | 2023-08-08 17:27 | Hospitalist Progress Note ---
Date of Service August 08, 2023 Assessment & Plan (1) DKA (diabetic ketoacidosis): (2) High anion gap metabolic acidosis: (3) Metabolic encephalopathy: (4) Paroxysmal atrial fibrillation: (5) CESAR (acute kidney injury): (6) Elevated troponin: (7) Acute electrocardiogram changes: (8) Chronic heart failure with preserved ejection fraction (HFpEF): (9) Severe aortic stenosis: Plan Patient is Critically ill 77-year-old male who has a significant past medical history of medication noncompliance, T2DM, PAF anticoagulated on Eliquis, chronic HFpEF, moderate to severe aortic stenosis, HTN, HLD and BPH who presents to ED via EMS secondary to altered mental status. Sepsis secondary to Bacteremia, Complicated UTI In the setting of indwelling Hanna catheter High anion gap metabolic acidosis H/O BPH/obstructive uropathy --CT ABD:Wall thickening of the urinary bladder with indwelling Hanna catheter. Correlate for UTI. Hepatic steatosis. Sludge in the gallbladder. No hydronephrosis or nephrolithiasis. Mild fullness of the bilateral renal collecting systems. Diverticulosis, without acute diverticulitis. No small bowel obstruction. No free intraperitoneal air . -- Blood and urine culture grew Serratia marcescens -- Repeat blood cultures negative --Hanna catheter was exchanged while in ED per record --Completed IV cefepime course on 08/03 --Received IV fluids --Appreciate ID input --Appreciate urology input Plan to continue Hanna catheter as recommended by urology Restarted Flomax, finasteride Leukocytosis resolved Waiting for placement Case management to help with discharge planning [facility]--POA in the setting of Sepsis Metabolic encephalopathy --CT Head:No acute intracranial hemorrhage, midline shift, or mass effect. -- HbA1c 10.7 Mental status back to baseline CESAR/ATN Likely from prerenal, sepsis Leg Edema Chronic obstructive uropathy --Venous Doppler:No evidence of deep venous thrombus within the bilateral lower extremities although exam technically compromised, as above. 3.6 x 0.7 x 2.4 cm right popliteal cyst. Baseline Cr 0.8 Cr 1.87 today Appreciate nephrology, Urology input IV diuretics as needed Continue Hanna catheter Needs follow-up with urology, nephrology upon discharge Cr 1.93 today Atrial Fibrillation in RVR In the setting of sepsis H/O A fib Required cardioversion in ICU as per record Currently in sinus IV Amiodarone discontinued Restarted metoprolol On Eliquis for anticoagulation DM II Last HbA1c 10.7 Hold p.o. medications Continue insulin per protocol We will adjust insulin to minimize hypoglycemic episodes Appreciate glycemic pharmacist help Elevated troponin Likely demand ischemia ECHO no regional wall motion abnormality Chronic HFpEF Severe Aortic Stenosis HTN HLD Daily weights/strict intake and output recent echo: 04/2023 EF 50-55%, moderate concentric LVH, moderate to severe aortic stenosis, moderate mitral calcification, RV normal in size and function Plan to resume diuretics as able Monitor volume status DVT Px: Eliquis CODE STATUS DNI DNR Disposition Pending, Office of ageing involved PT/OT evaluation Case management to help with discharge planning Admission and Anticipated Discharge Date Admission Date: July 24, 2023 Subjective Patient is seen and examined at bedside Poor historian secondary to significant hearing impairment States feeling hypoglycemic this morning Otherwise feels well Waiting for placement Renal function stable Review of Systems Review of Systems: All systems reviewed & are unremarkable except as noted in Subjective Physical Exam Physical Exam: Physical Exam: Vitals signs as noted above General Appearance:Moderately built and nourished, no apparent distress Head: normocephalic, Atraumatic Eyes: normal inspection, EOMI Neck: supple, Trachea midline Respiratory/Chest: Normal breath sounds, CTA, No accessory muscle use Cardiovascular: S1, S2, + murmur Abdomen/GI:Soft, Non tender, Bowel sounds present Extremities/Musculoskeletal:normal inspection, 1+ B/L LE edema + Hanna Neurologic/Psych:AAO, grossly no focal neurological deficits, +Hearing impairment Skin: normal color, warm Results & Data Results & Data Vital Signs (Past 12 Hours) Vital Signs Temp Pulse Resp BP BP Pulse Ox O2 Del Method 08/08/23 14:47 36.5 C 62 18 119/71 92 Room Air 08/08/23 07:30 Room Air 08/08/23 07:38 36.6 C 56 L 18 154/83 H 96 Room Air Laboratory Results Short CBC 08/08/23 Range/Units 06:11 WBC 9.21 (4.8-10.8) K/ul Hgb 10.5 L (14.0-18.0) g/dl Hct 32.1 L (42.0-52.0) % Plt Count 347 (130-400) K/uL BMP 08/08/23 06:11 Sodium 134 L Potassium 4.2 Chloride 98 Carbon Dioxide 29 BUN 57 H Creatinine 1.93 H Glucose 119 H Calcium 8.3 L
[2023-08-09 08:05] LABS: BUN Creatinine Ratio 29.8 (10-20); Calcium 8.6 mg/dl (8.6-10.3); Creatinine Clr Calc Pharmacy 33.1 ml/min; Est GFR (African American) 41.4 ml/min; Est GFR (Non-African American) 35.7 ml/min
[2023-08-09] MEDS: APIXABAN 5 MG TABLET PO SCH ×2 (08:05→20:04)
[2023-08-09] MEDS: METOPROLOL TARTRATE 25 MG TAB PO SCH ×2 (08:06→20:04)
[2023-08-09] MEDS: PANTOprazole 40 MG TAB PO SCH (08:06)
[2023-08-09] MEDS: TAMSULOSIN HCL 0.4 MG CAP PO SCH (08:06)
[2023-08-09] MEDS: FINASTERIDE 5 MG TAB PO SCH (08:06)
[2023-08-09] MEDS: INSULIN ASPART PER UNIT CHARGE SC SCH ×4 (08:12→20:57)
[2023-08-09] MEDS ORDERED: LANTUS PER UNIT CHARGE SC SCH (09:00)
--- NOTE | 2023-08-09 16:28 | Hospitalist Progress Note ---
Date of Service August 09, 2023 Assessment & Plan (1) DKA (diabetic ketoacidosis): (2) High anion gap metabolic acidosis: (3) Metabolic encephalopathy: (4) Paroxysmal atrial fibrillation: (5) CESAR (acute kidney injury): (6) Elevated troponin: (7) Acute electrocardiogram changes: (8) Chronic heart failure with preserved ejection fraction (HFpEF): (9) Severe aortic stenosis: Plan Patient is Critically ill 77-year-old male who has a significant past medical history of medication noncompliance, T2DM, PAF anticoagulated on Eliquis, chronic HFpEF, moderate to severe aortic stenosis, HTN, HLD and BPH who presents to ED via EMS secondary to altered mental status. Sepsis secondary to Bacteremia, Complicated UTI In the setting of indwelling Hanna catheter High anion gap metabolic acidosis H/O BPH/obstructive uropathy --CT ABD:Wall thickening of the urinary bladder with indwelling Hanna catheter. Correlate for UTI. Hepatic steatosis. Sludge in the gallbladder. No hydronephrosis or nephrolithiasis. Mild fullness of the bilateral renal collecting systems. Diverticulosis, without acute diverticulitis. No small bowel obstruction. No free intraperitoneal air . -- Blood and urine culture grew Serratia marcescens -- Repeat blood cultures negative --Hanna catheter was exchanged while in ED per record --Completed IV cefepime course on 08/03 --Received IV fluids --Appreciate ID input --Appreciate urology input Plan to continue Hanna catheter as recommended by urology Restarted Flomax, finasteride Leukocytosis resolved Waiting for placement Plan to discharge to rehab facility when accepted [facility]--POA in the setting of Sepsis Metabolic encephalopathy --CT Head:No acute intracranial hemorrhage, midline shift, or mass effect. -- HbA1c 10.7 Mental status back to baseline CESAR/ATN Likely from prerenal, sepsis Leg Edema Chronic obstructive uropathy --Venous Doppler:No evidence of deep venous thrombus within the bilateral lower extremities although exam technically compromised, as above. 3.6 x 0.7 x 2.4 cm right popliteal cyst. Baseline Cr 0.8 Cr 1.87 today Appreciate nephrology, Urology input IV diuretics as needed Continue Hanna catheter Needs follow-up with urology, nephrology upon discharge Cr 1.78 today Atrial Fibrillation in RVR In the setting of sepsis H/O A fib Required cardioversion in ICU as per record Currently in sinus IV Amiodarone discontinued Restarted metoprolol On Eliquis for anticoagulation DM II Last HbA1c 10.7 Hold p.o. medications Continue insulin per protocol We will adjust insulin to minimize hypoglycemic episodes Appreciate glycemic pharmacist help Elevated troponin Likely demand ischemia ECHO no regional wall motion abnormality Chronic HFpEF Severe Aortic Stenosis HTN HLD Daily weights/strict intake and output recent echo: 04/2023 EF 50-55%, moderate concentric LVH, moderate to severe aortic stenosis, moderate mitral calcification, RV normal in size and function Plan to resume diuretics as able Monitor volume status DVT Px: Eliquis CODE STATUS DNI DNR Disposition Pending, Office of ageing involved PT/OT evaluation Case management to help with discharge planning Admission and Anticipated Discharge Date Admission Date: July 24, 2023 Subjective Patient is seen and examined at bedside Poor historian secondary to significant hearing impairment No new complaints No recurrence of hypoglycemia Eager to get discharged Waiting for placement Denies any chest pain, dyspnea, dizziness, nausea, vomiting, abdominal pain Renal function improving Review of Systems Review of Systems: All systems reviewed & are unremarkable except as noted in Subjective Physical Exam Physical Exam: Physical Exam: Vitals signs as noted above General Appearance:Moderately built and nourished, no apparent distress Head: normocephalic, Atraumatic Eyes: normal inspection, EOMI Neck: supple, Trachea midline Respiratory/Chest: Normal breath sounds, CTA, No accessory muscle use Cardiovascular: S1, S2, + murmur Abdomen/GI:Soft, Non tender, Bowel sounds present Extremities/Musculoskeletal:normal inspection, 1+ B/L LE edema + Hanna Neurologic/Psych:AAO, grossly no focal neurological deficits, +Hearing impairment Skin: normal color, warm Results & Data Results & Data Vital Signs (Past 12 Hours) Vital Signs Temp Pulse Resp BP BP Pulse Ox O2 Del Method 08/09/23 15:00 36.4 C L 59 L 18 121/72 98 Room Air 08/09/23 07:31 36.4 C L 60 18 131/70 98 Room Air Laboratory Results [facility] 08/09/23 06:33 Sodium 136 Potassium 4.0 Chloride 101 Carbon Dioxide 28 BUN 53 H Creatinine 1.78 H Glucose 117 H Calcium 8.6
[2023-08-10] MEDS: APIXABAN 5 MG TABLET PO SCH ×2 (08:30→20:32)
[2023-08-10] MEDS: PANTOprazole 40 MG TAB PO SCH (08:32)
[2023-08-10] MEDS: TAMSULOSIN HCL 0.4 MG CAP PO SCH (08:32)
[2023-08-10] MEDS: METOPROLOL TARTRATE 25 MG TAB PO SCH ×2 (08:33→20:33)
[2023-08-10] MEDS: INSULIN ASPART PER UNIT CHARGE SC SCH ×4 (08:40→20:48)
[2023-08-10] MEDS: LANTUS PER UNIT CHARGE SC SCH (08:41)
[2023-08-10] MEDS: FINASTERIDE 5 MG TAB PO SCH (09:40)
--- NOTE | 2023-08-10 11:55 | Pharmacy Report ---
Pharmacy Glycemic Short Note 2 - Date of Service August 10, 2023 - Glycemic Short BSG Results (Last 24 hours): 08/09/23 08/09/23 08/09/23 11:55 16:52 16:54 POC Glucose 79 60 L* 76 08/09/23 08/10/23 08/10/23 20:20 07:40 11:40 POC Glucose 173 H 103 H 152 H OUTPATIENT ANTIDIABETIC REGIMEN: * Xultophy 20 units SC HS * Novolog 5 units SC AC * HbA1c: 10.7% (04/29/23) ASSESSMENT: 08/10: * Patient received 47 units of insulin yesterday, 30 units basal + 17 units bolus. BSGs were: 167-87-15-173 mg/dL. * Given borderline low blood sugars yesterday, plan to reduce insulin regimen further today. * Novolog was loosened significantly yesterday so will continue with this to see how postprandials respond. * Lantus will be reduced by ~15% today given fasting BSG this AM of 103 mg/dL. 08/08: * Selvin received 59 units of insulin yesterday of which 32 were basal * Slight reduction (5%) in basal insulin based on yesterday's fasting BSG, will continue this dose since fasting BSG was in goal range today. * Lunchtime BSG elevated yesterday- tightened breakfast Novolog parameters to values in between 08/05 (which caused lunchtime low) and 08/06 (which led to hyperglycemia. * Hypoglycemia at dinnertime yesterday- likely due to overcorrection of lunchtime hyperglycemia- loosened lunch, dinner, and bedtime Novolog correction factor * No additional stressor noted at this time. 08/06: * SCr 1.87 this morning, down from 2.37 * Fasting BSG 90 mg/dL on labs, 103 mg/dL on POC BSG. Will reduce lantus to 32 units today (35 yesterday) * Novolog loosened yesterday with BSG 74 mg/dL at lunchtime; trended up rest of day; will tighten back to previous carb ratio * Loosened breakfast for this morning given low at lunch yesterday- monitor 08/04: * Stressors stable - ordered T2DM diet * AM fasting BSG above goal range for many days (with the exception of 08/02, but BSG trended up overnight that night). Will increase Lantus * Dinnertime BSG below goal yesterday. Will loosen Novolog in the latter part of the day, particularly at lunch, to help prevent hypoglycemia. 08/03: * BSGs yesterday 235-338-15-258 mg/dL. Received 30 units of basal and 44 units of bolus yesterday. * Breakfast insulin given ~0900 which may have contributed to high BSG at lunch and subsequent low with dinner. Will loosen CR/CF with lunch today, however as patient was also below goal at dinner on 08/01.- monitor * Fasting 190 mg/dL this morning- monitor; consider increase in basal if trend continues (125 mg/dL yesterday). 07/31: * BSGs elevated the last 24h: 407-503-417-229mg/dL. Received 23 units of basal and 42 units of bolus insulin yesterday. * Further titrate basal, 30 units. Novolog carb ratio tightened at breakfast and lunch. Continue with looser parameters at dinner and HS. 07/30: * BSGs 840-17-591-252mg/dL the last 24h. Received 20 units of basal and 42 units of bolus insulin yesterday. * Other stressors stable. * Titrate basal given elevated fasting to 23 units. Novolog further tightened at breakfast. Will loosen lunch, dinner, HS parameters given tendency to go low at night (continue max 15 units) 07/29: * BSGs 58-55-233-283mg/dl the last 24h. Received no basal and 38 units of bolus insulin yesterday. * Stressors stable. * Given low BSGs yesterday at dinner, Lantus was held. Resumed this AM at 20 units as fasting was 191mg/dL. Novolog loosened back to 20/6 today and again BSG is high at lunch. Will use a tighter carb ratio tomorrow at breakfast with looser ratio at all other times (max 15 units at lunch, dinner and HS). 07/28: * BSGs [phone]/dL the last 24h. Received 15 units of basal and 25 units of bolus insulin yesterday. * Tolerating diet, continues on cefepime. * Increase basal to 20 units given elevated fasting. Tighten novolog for improved prandial coverage and improved PO intake. 07/27: * BSGs [phone]/dL the last 24h. Received 12 units of basal and 11 units of bolus insulin yesterday. * Diet reinitiated and continues on antibiotics. * Increase basal to 15 units at HS given slightly elevated fasting. Novolog parameters tightened with advancement of diet. 07/26: * Selvin received 59 units of insulin yesterday, 40 units basal + 19 units bolus. BSGs were: [phone] mg/dL. * Fasting BSG was below goal at 84 mg/dL this AM. Will reduce basal significantly given NPO and dextrose discontinued. Will loosen Novolog as well while NPO. 07/25: * 77 yo M admitted on 07/24/23 secondary to HHS/CESAR/Afib/Resp failure. Pharmacy has been consulted to assist with inpatient glycemic management. Patient is a Type 2 diabetic as an outpatient. Please refer to outpatient regimen and most recent HbA1c above. * BSG was 768 mg/dL upon arrival yesterday. Started on an insulin drip. Received ~ 62 units via drip over a 12 hour period. * Will give a dose of basal insulin this morning in hopes of transitioning. 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 * RN shut insulin drip off right after Lantus administration without overlap due to compatibility issues. Discontinued dextrose and potassium containing fluids. Chemical Processing Equipment Repairer would like 1/2 NS running at 75 mL/hr. * Remains NPO. No enteral nutrition yet. Cefepime for infection. Amiodarone and Heparin drips running. * Will start Novolog q4 for time being. PLAN FOR INPATIENT GLYCEMIC CONTROL: * Basal insulin * Lantus 26 units SC daily * Bolus insulin * NovoLog per scale ACHS * Goal Range: Low 110 mg/dL - High 140 mg/dL * Correction Factor: 40 mg/dL/unit * Nutritional / Prandial insulin per carb ratio of 1 unit per 9 grams CHO consumed
--- NOTE | 2023-08-10 14:14 | Hospitalist Progress Note ---
Date of Service August 10, 2023 Assessment & Plan (1) DKA (diabetic ketoacidosis): (2) High anion gap metabolic acidosis: (3) Metabolic encephalopathy: (4) Paroxysmal atrial fibrillation: (5) CESAR (acute kidney injury): (6) Elevated troponin: (7) Acute electrocardiogram changes: (8) Chronic heart failure with preserved ejection fraction (HFpEF): (9) Severe aortic stenosis: Plan Patient is Critically ill 77-year-old male who has a significant past medical history of medication noncompliance, T2DM, PAF anticoagulated on Eliquis, chronic HFpEF, moderate to severe aortic stenosis, HTN, HLD and BPH who presents to ED via EMS secondary to altered mental status. Sepsis secondary to Bacteremia, Complicated UTI In the setting of indwelling Hanna catheter High anion gap metabolic acidosis H/O BPH/obstructive uropathy --CT ABD:Wall thickening of the urinary bladder with indwelling Hanna catheter. Correlate for UTI. Hepatic steatosis. Sludge in the gallbladder. No hydronephrosis or nephrolithiasis. Mild fullness of the bilateral renal collecting systems. Diverticulosis, without acute diverticulitis. No small bowel obstruction. No free intraperitoneal air . -- Blood and urine culture grew Serratia marcescens -- Repeat blood cultures negative --Hanna catheter was exchanged while in ED per record --Completed IV cefepime course on 08/03 --Received IV fluids --Appreciate ID input --Appreciate urology input Plan to continue Hanna catheter as recommended by urology Restarted Flomax, finasteride Leukocytosis resolved Waiting for placement Plan to discharge to rehab facility when accepted [facility]--POA in the setting of Sepsis Metabolic encephalopathy --CT Head:No acute intracranial hemorrhage, midline shift, or mass effect. -- HbA1c 10.7 Mental status back to baseline CESAR/ATN Likely from prerenal, sepsis Leg Edema Chronic obstructive uropathy --Venous Doppler:No evidence of deep venous thrombus within the bilateral lower extremities although exam technically compromised, as above. 3.6 x 0.7 x 2.4 cm right popliteal cyst. Baseline Cr 0.8 Cr 1.87 today Appreciate nephrology, Urology input IV diuretics as needed Continue Hanna catheter Needs follow-up with urology, nephrology upon discharge Cr 1.78 today Atrial Fibrillation in RVR In the setting of sepsis H/O A fib Required cardioversion in ICU as per record Currently in sinus IV Amiodarone discontinued Restarted metoprolol On Eliquis for anticoagulation DM II Last HbA1c 10.7 Hold p.o. medications Continue insulin per protocol We will adjust insulin to minimize hypoglycemic episodes Appreciate glycemic pharmacist help Elevated troponin Likely demand ischemia ECHO no regional wall motion abnormality Chronic HFpEF Severe Aortic Stenosis HTN HLD Daily weights/strict intake and output recent echo: 04/2023 EF 50-55%, moderate concentric LVH, moderate to severe aortic stenosis, moderate mitral calcification, RV normal in size and function Plan to resume diuretics as able Monitor volume status DVT Px: Eliquis CODE STATUS DNI DNR Disposition Pending, Office of ageing involved PT/OT evaluation Case management to help with discharge planning Admission and Anticipated Discharge Date Admission Date: July 24, 2023 Supervising Physician Co-Signing Physician Notes Patient is seen and examined at bedside. States feeling well today No new complaints. Waiting for placement Discussed with urology today Physical Exam: Vitals signs as noted above General Appearance:Moderately built and nourished, no apparent distress Head: normocephalic, Atraumatic Eyes: normal inspection, EOMI Neck: supple, Trachea midline Respiratory/Chest: Normal breath sounds, CTA, No accessory muscle use Cardiovascular: S1, S2, + murmur Abdomen/GI:Soft, Non tender, Bowel sounds present Extremities/Musculoskeletal:normal inspection, 1+ B/L LE edema + Hanna Neurologic/Psych:AAO, grossly no focal neurological deficits, +Hearing impairment Skin: normal color, warm Sepsis secondary to Bacteremia, Complicated UTI In the setting of indwelling Hanna catheter High anion gap metabolic acidosis H/O BPH/obstructive uropathy HHS Continue Hanna catheter as recommended by urology with monthly exchanges. Plan to discharged once placement available Cr stable I personally reviewed the record. Patient is interviewed and examined at bedside. Patient's care is coordinated with Marga Le PA-C. Please refer to the documentation above for details of patient's presentation and for discussion of other issues. Subjective Pt was seen and examined in room 378-1. Follow up multiple medical issues, now waiting placement. Denies f/c/s, chest pain, sob, n/v/d. He is very [employer] [employer] and therefore we communicate via writing. He has a hearty appetite and is always hungry. Review of Systems Review of Systems: All systems reviewed & are unremarkable except as noted in HPI & below Physical Exam Physical Exam: Gen: WD/WN, NAD, A&O x2 HEENT: +very hard of hearing, Normocephalic, atraumatic, conjunctivae moist, sclerae anicteric, mucous membranes moist. Lung: Clear to Auscultation bilaterally, no wheezes/rales/rhonchi Heart: Regular rate, regular rhythm, +murmur, rubs, or gallops Abdomen: Soft, NT, ND +BS x 4 Extremities: trace b/l edema Skin: Warm, no rash, negative turgor. Results & Data Results & Data Vital Signs (Past 12 Hours) Vital Signs Temp Pulse Resp BP Pulse Ox O2 Del Method 08/10/23 07:45 Room Air 08/10/23 08:33 64 120/63 08/10/23 08:01 36.6 C 58 L 20 116/67 98 Room Air Medications Administered Current Inpatient Medications Acetaminophen (Acetaminophen 325 Mg Tab) 650 mg PO QID PRN PRN Reason: pain/fever Stop: 08/24/23 23:06 Apixaban (Apixaban 5 Mg Tablet) 5 mg PO BID [facility] Stop: 08/25/23 20:59 Last Admin: 08/10/23 08:30 Dose: 5 mg Dextrose (Dextrose 50% 50 Ml Syringe) 25 - 50 ml IV UD PRN; Protocol PRN Reason: Hypoglycemia Protocol Stop: 08/23/23 15:25 Finasteride (Finasteride 5 Mg Tab) 5 mg PO DAILY [facility] Stop: 09/05/23 08:59 Last Admin: 08/10/23 09:40 Dose: 5 mg Furosemide (Furosemide Inj 20 Mg/2 Ml Vial) 20 mg IV Q8H [facility] Stop: 08/27/23 11:59 Last Admin: 07/29/23 12:12 Dose: 20 mg Glucagon (Glucagon For Inj 1 Mg Vial) 1 mg SQ UD PRN; Protocol PRN Reason: Hypoglycemia Protocol Stop: 08/23/23 15:25 Glucose (Glucose 40% Gel 15 Gm Tube) 15 - 30 gm PO UD PRN; Protocol PRN Reason: Hypoglycemia Protocol Stop: 08/23/23 15:25 Glucose (Glucose 10 Tab/Tube) 4 - 8 tab PO UD PRN; Protocol PRN Reason: Hypoglycemia Treatment Stop: 08/23/23 15:25 Insulin Aspart (Insulin Aspart Per Unit Charge) 0 units SC ACHS [facility]; Protocol Stop: 09/03/23 11:29 Last Admin: 08/10/23 12:40 Dose: 9 units Insulin Glargine (Lantus Per Unit Charge) 26 units SC DAILY [facility]; Protocol Stop: 09/03/23 08:59 Last Admin: 08/10/23 08:41 Dose: 26 units Metoprolol Tartrate (Metoprolol Tartrate 25 Mg Tab) 25 mg PO BID [facility] Stop: 08/24/23 08:59 Last Admin: 08/10/23 08:33 Dose: 25 mg Metoprolol Tartrate (Metoprolol Tartrate 1 Mg/Ml Vial) 5 mg IV Q4 PRN PRN Reason: HR>120 Stop: 08/24/23 11:59 Miscellaneous (Carbohydrates For Hypoglycemia ) 15 - 30 gm PO UD PRN PRN Reason: Hypoglycemia Protocol Stop: 08/23/23 15:25 Last Admin: 08/06/23 16:41 Dose: 15 gm Miscellaneous Information (Pharmacy Glycemic Mgmt Consult) 1 each N/A UD PRN PRN Reason: Consult Stop: 08/23/23 19:41 Pantoprazole Sodium (Pantoprazole 40 Mg Tab) 40 mg PO DAILY [facility] Stop: 08/24/23 08:59 Last Admin: 08/10/23 08:32 Dose: 40 mg Tamsulosin HCl (Tamsulosin Hcl 0.4 Mg Cap) 0.4 mg PO DAILY [facility] Stop: 09/05/23 08:59 Last Admin: 08/10/23 08:32 Dose: 0.4 mg Tramadol HCl (Tramadol Hcl 50 Mg Tablet) 25 - 50 mg PO Q4H PRN PRN Reason: Pain Stop: 08/25/23 05:21 Last Admin: 08/02/23 23:22 Dose: 50 mg
[2023-08-10] MEDS: CARBOHYDRATES FOR HYPOGLYCEMIA PO PRN (20:31)
[2023-08-11 07:56] LABS: Hematocrit (blood only) 32.7 % (42.0-52.0); Hemoglobin 10.8 g/dl (14.0-18.0); Mean Corpuscular Hemoglobin 28.8 pg (25.0-34.0); Mean Corpuscular Volume 87.2 fL (80.0-100.0); Platelet Count 311 K/uL (130-400); RDW Coefficient of Variation 13.3 % (11.5-14.5); Red Blood Count 3.75 M/uL (4.70-6.10); White Blood Count 8.63 K/ul (4.8-10.8)
[2023-08-11 08:13] LABS: BUN Creatinine Ratio 28.9 (10-20); Calcium 8.6 mg/dl (8.6-10.3); Creatinine Clr Calc Pharmacy 32.7 ml/min; Est GFR (African American) 40.9 ml/min; Est GFR (Non-African American) 35.3 ml/min; Potassium 4.4 mmol/L (3.5-5.1)
[2023-08-11] MEDS: INSULIN ASPART PER UNIT CHARGE SC SCH ×4 (08:43→20:48)
[2023-08-11] MEDS: LANTUS PER UNIT CHARGE SC SCH (08:43)
[2023-08-11] MEDS: METOPROLOL TARTRATE 25 MG TAB PO SCH ×2 (08:45→20:53)
[2023-08-11] MEDS: TAMSULOSIN HCL 0.4 MG CAP PO SCH (08:45)
[2023-08-11] MEDS: FINASTERIDE 5 MG TAB PO SCH (08:45)
[2023-08-11] MEDS: APIXABAN 5 MG TABLET PO SCH ×2 (08:45→20:53)
[2023-08-11] MEDS: PANTOprazole 40 MG TAB PO SCH (08:45)
--- NOTE | 2023-08-11 11:56 | Hospitalist Progress Note ---
Date of Service August 11, 2023 Assessment & Plan (1) DKA (diabetic ketoacidosis): (2) High anion gap metabolic acidosis: (3) Metabolic encephalopathy: (4) Paroxysmal atrial fibrillation: (5) CESAR (acute kidney injury): (6) Elevated troponin: (7) Acute electrocardiogram changes: (8) Chronic heart failure with preserved ejection fraction (HFpEF): (9) Severe aortic stenosis: Plan Patient is Critically ill 77-year-old male who has a significant past medical history of medication noncompliance, T2DM, PAF anticoagulated on Eliquis, chronic HFpEF, moderate to severe aortic stenosis, HTN, HLD and BPH who presents to ED via EMS secondary to altered mental status. Sepsis secondary to Bacteremia, Complicated UTI In the setting of indwelling Yee catheter High anion gap metabolic acidosis H/O BPH/obstructive uropathy --CT ABD:Wall thickening of the urinary bladder with indwelling Yee catheter. Correlate for UTI. Hepatic steatosis. Sludge in the gallbladder. No hydronephrosis or nephrolithiasis. Mild fullness of the bilateral renal collecting systems. Diverticulosis, without acute diverticulitis. No small bowel obstruction. No free intraperitoneal air . -- Blood and urine culture grew Serratia marcescens -- Repeat blood cultures negative --Yee catheter was exchanged while in ED per record --Completed IV cefepime course on 08/03 --Received IV fluids --Appreciate ID input --Appreciate urology input Plan to continue Yee catheter as recommended by urology with monthly changes, last changed 07/24 Restarted Flomax, finasteride Leukocytosis resolved Waiting for placement Plan to discharge to rehab facility when accepted [facility]--POA in the setting of Sepsis Metabolic encephalopathy --CT Head:No acute intracranial hemorrhage, midline shift, or mass effect. -- HbA1c 10.7 Mental status back to baseline CESAR/ATN Likely from prerenal, sepsis Leg Edema Chronic obstructive uropathy --Venous Doppler:No evidence of deep venous thrombus within the bilateral lower extremities although exam technically compromised, as above. 3.6 x 0.7 x 2.4 cm right popliteal cyst. Baseline Cr 0.8 Cr 1.87 today Appreciate nephrology, Urology input IV diuretics as needed Continue Yee catheter Needs follow-up with urology, nephrology upon discharge Cr 1.8 today Atrial Fibrillation in RVR In the setting of sepsis H/O A fib Required cardioversion in ICU as per record Currently in sinus IV Amiodarone discontinued Restarted metoprolol On Eliquis for anticoagulation DM II Last HbA1c 10.7 Hold p.o. medications Continue insulin per protocol Glycemic pharmacist on board, ok with liberal control to prevent lows, they are working on decreasing insulin Appreciate glycemic pharmacist help Elevated troponin Likely demand ischemia ECHO no regional wall motion abnormality Chronic HFpEF Severe Aortic Stenosis HTN HLD Daily weights/strict intake and output recent echo: 04/2023 EF 50-55%, moderate concentric LVH, moderate to severe aortic stenosis, moderate mitral calcification, RV normal in size and function Plan to resume diuretics as able Monitor volume status DVT Px: Eliquis CODE STATUS DNI DNR Disposition Pending, Office of ageing involved PT/OT evaluation Case management to help with discharge planning Pt was seen and examined in collaboration with Dr. Elizondo, please see addendum Admission and Anticipated Discharge Date Admission Date: July 24, 2023 Supervising Physician Co-Signing Physician Notes Patient is seen and examined at bedside. offers no new complaints. Waiting for placement. Physical Exam: Vitals signs as noted above General Appearance:Moderately built and nourished, no apparent distress Head: normocephalic, Atraumatic Eyes: normal inspection, EOMI Neck: supple, Trachea midline Respiratory/Chest: Normal breath sounds, CTA, No accessory muscle use Cardiovascular: S1, S2, + murmur Abdomen/GI:Soft, Non tender, Bowel sounds present Extremities/Musculoskeletal:normal inspection, 1+ B/L LE edema + Yee Neurologic/Psych:AAO, grossly no focal neurological deficits, +Hearing impair ment Skin: normal color, warm Sepsis secondary to Bacteremia, Complicated UTI In the setting of indwelling Yee catheter High anion gap metabolic acidosis H/O BPH/obstructive uropathy HHS Continue Yee catheter as recommended by urology with monthly exchanges. Medically stable for discharge. Plan to discharged once placement available Cr stable Case management to help with discharge planning I personally reviewed the record. Patient is interviewed and examined at bedside. Patient's care is coordinated with Marga Le PA-C. Please refer to the documentation above for details of patient's presentation and for discussion of other issues. Subjective Pt was seen and examined in room 378-1. Follow up multiple medical issues, now waiting placement. Offers no acute concerns today. Denies f/c/s, chest pain, sob, n/v/d. Asking when he is going to get out of here. Discussed with patient regarding disposition. We are hopeful to get him to [facility]. He states [place] a property with a generator and if it gets cold at night he has a tree stand with a propane heater he can get to. He feels he could care for himself in this setting even with a yee cath. If he just had somewhere to go at night when its cold. we communicate via written text as he is very hard of hearing. Review of Systems Review of Systems: All systems reviewed & are unremarkable except as noted in HPI & below Physical Exam Physical Exam: Gen: WD/WN, NAD, A&O x4 HEENT: +very hard of hearing, Normocephalic, atraumatic, conjunctivae moist, sclerae anicteric, mucous membranes moist. Lung: Clear to Auscultation bilaterally, no wheezes/rales/rhonchi Heart: Regular rate, regular rhythm, +murmur, rubs, or gallops Abdomen: Soft, NT, ND +BS x 4 Extremities: trace b/l edema Skin: Warm, no rash, negative turgor. Results & Data Results & Data Vital Signs (Past 12 Hours) Vital Signs Temp Pulse Resp BP Pulse Ox O2 Del Method 08/11/23 07:47 Room Air 08/11/23 07:34 36.7 C 61 18 131/77 96 Room Air Laboratory Results Short CBC 08/11/23 Range/Units 07:23 WBC 8.63 (4.8-10.8) K/ul Hgb 10.8 L (14.0-18.0) g/dl Hct 32.7 L (42.0-52.0) % Plt Count 311 (130-400) K/uL BMP 08/11/23 07:23 Sodium 135 L Potassium 4.4 Chloride 101 Carbon Dioxide 29 BUN 52 H Creatinine 1.80 H Glucose 158 H Calcium 8.6 Medications Administered Current Inpatient Medications Acetaminophen (Acetaminophen 325 Mg Tab) 650 mg PO QID PRN PRN Reason: pain/fever Stop: 08/24/23 23:06 Apixaban (Apixaban 5 Mg Tablet) 5 mg PO BID [facility] Stop: 08/25/23 20:59 Last Admin: 08/11/23 08:45 Dose: 5 mg Dextrose (Dextrose 50% 50 Ml Syringe) 25 - 50 ml IV UD PRN; Protocol PRN Reason: Hypoglycemia Protocol Stop: 08/23/23 15:25 Finasteride (Finasteride 5 Mg Tab) 5 mg PO DAILY [facility] Stop: 09/05/23 08:59 Last Admin: 08/11/23 08:45 Dose: 5 mg Furosemide (Furosemide Inj 20 Mg/2 Ml Vial) 20 mg IV Q8H [facility] Stop: 08/27/23 11:59 Last Admin: 07/29/23 12:12 Dose: 20 mg Glucagon (Glucagon For Inj 1 Mg Vial) 1 mg SQ UD PRN; Protocol PRN Reason: Hypoglycemia Protocol Stop: 08/23/23 15:25 Glucose (Glucose 40% Gel 15 Gm Tube) 15 - 30 gm PO UD PRN; Protocol PRN Reason: Hypoglycemia Protocol Stop: 08/23/23 15:25 Glucose (Glucose 10 Tab/Tube) 4 - 8 tab PO UD PRN; Protocol PRN Reason: Hypoglycemia Treatment Stop: 08/23/23 15:25 Insulin Aspart (Insulin Aspart Per Unit Charge) 0 units SC ACHS [facility]; Protocol Stop: 09/03/23 11:29 Last Admin: 08/11/23 08:43 Dose: 7 units Insulin Glargine (Lantus Per Unit Charge) 26 units SC DAILY [facility]; Protocol Stop: 09/03/23 08:59 Last Admin: 08/11/23 08:43 Dose: 26 units Metoprolol Tartrate (Metoprolol Tartrate 25 Mg Tab) 25 mg PO BID [facility] Stop: 08/24/23 08:59 Last Admin: 08/11/23 08:45 Dose: 25 mg Metoprolol Tartrate (Metoprolol Tartrate 1 Mg/Ml Vial) 5 mg IV Q4 PRN PRN Reason: HR>120 Stop: 08/24/23 11:59 Miscellaneous (Carbohydrates For Hypoglycemia ) 15 - 30 gm PO UD PRN PRN Reason: Hypoglycemia Protocol Stop: 08/23/23 15:25 Last Admin: 08/10/23 20:31 Dose: 15 gm Miscellaneous Information (Pharmacy Glycemic Mgmt Consult) 1 each N/A UD PRN PRN Reason: Consult Stop: 08/23/23 19:41 Pantoprazole Sodium (Pantoprazole 40 Mg Tab) 40 mg PO DAILY [facility] Stop: 08/24/23 08:59 Last Admin: 08/11/23 08:45 Dose: 40 mg Tamsulosin HCl (Tamsulosin Hcl 0.4 Mg Cap) 0.4 mg PO DAILY [facility] Stop: 09/05/23 08:59 Last Admin: 08/11/23 08:45 Dose: 0.4 mg Tramadol HCl (Tramadol Hcl 50 Mg Tablet) 25 - 50 mg PO Q4H PRN PRN Reason: Pain Stop: 08/25/23 05:21 Last Admin: 08/02/23 23:22 Dose: 50 mg
--- NOTE | 2023-08-11 13:53 | Pharmacy Report ---
Pharmacy Glycemic Short Note 2 - Date of Service August 11, 2023 - Glycemic Short BSG Results (Last 24 hours): 08/10/23 08/10/23 08/10/23 16:42 20:26 20:27 Glucose POC Glucose 140 H 59 L* 60 L* 08/10/23 08/11/23 08/11/23 20:47 07:23 07:32 Glucose 158 H POC Glucose 76 164 H 08/11/23 11:45 Glucose POC Glucose 129 H OUTPATIENT ANTIDIABETIC REGIMEN: * Xultophy 20 units SC HS * Novolog 5 units SC AC * HbA1c: 10.7% (04/29/23) ASSESSMENT: 08/11: * Selvin received 45 units of insulin yesterday, 26 units basal + 19 units bolus. BSGs were 553-991-052-59 mg/dL. * Patient had a hypoglycemic event at bedtime last night. Thankfully, he was asymptomatic. Bolus insulin was held at this time. Patient received 15 g of carbs in the form of orange juice. * Fasting BSG was 164 mg/dL this morning. Believe this is related to treatment of hypoglycemia before bed. I did loosen carb ratio this morning. Lunchtime BSG trended down to 129 mg/dL. Will further loosen carb ratio and loosen correction factor to prevent any further instances of hypoglycemia. No changes to basal. 08/10: * Patient received 47 units of insulin yesterday, 30 units basal + 17 units bolus. BSGs were: 497-84-27-173 mg/dL. * Given borderline low blood sugars yesterday, plan to reduce insulin regimen further today. * Novolog was loosened significantly yesterday so will continue with this to see how postprandials respond. * Lantus will be reduced by ~15% today given fasting BSG this AM of 103 mg/dL. 08/08: * Selvin received 59 units of insulin yesterday of which 32 were basal * Slight reduction (5%) in basal insulin based on yesterday's fasting BSG, will continue this dose since fasting BSG was in goal range today. * Lunchtime BSG elevated yesterday- tightened breakfast Novolog parameters to values in between 10/4 (which caused lunchtime low) and 10/5 (which led to hyperglycemia. * Hypoglycemia at dinnertime yesterday- likely due to overcorrection of lunchtime hyperglycemia- loosened lunch, dinner, and bedtime Novolog correction factor * No additional stressor noted at this time. 08/06: * SCr 1.87 this morning, down from 2.37 * Fasting BSG 90 mg/dL on labs, 103 mg/dL on POC BSG. Will reduce lantus to 32 units today (35 yesterday) * Novolog loosened yesterday with BSG 74 mg/dL at lunchtime; trended up rest of day; will tighten back to previous carb ratio * Loosened breakfast for this morning given low at lunch yesterday- monitor 08/04: * Stressors stable - ordered T2DM diet * AM fasting BSG above goal range for many days (with the exception of 08/02, but BSG trended up overnight that night). Will increase Lantus * Dinnertime BSG below goal yesterday. Will loosen Novolog in the latter part of the day, particularly at lunch, to help prevent hypoglycemia. 08/03: * BSGs yesterday [phone] mg/dL. Received 30 units of basal and 44 units of bolus yesterday. * Breakfast insulin given ~0900 which may have contributed to high BSG at lunch and subsequent low with dinner. Will loosen CR/CF with lunch today, however as patient was also below goal at dinner on 08/01.- monitor * Fasting 190 mg/dL this morning- monitor; consider increase in basal if trend continues (125 mg/dL yesterday). 07/31: * BSGs elevated the last 24h: 056-900-133-229mg/dL. Received 23 units of basal and 42 units of bolus insulin yesterday. * Further titrate basal, 30 units. Novolog carb ratio tightened at breakfast and lunch. Continue with looser parameters at dinner and HS. 07/30: * BSGs 332-81-485-252mg/dL the last 24h. Received 20 units of basal and 42 units of bolus insulin yesterday. * Other stressors stable. * Titrate basal given elevated fasting to 23 units. Novolog further tightened at breakfast. Will loosen lunch, dinner, HS parameters given tendency to go low at night (continue max 15 units) 07/29: * BSGs 25-25-873-283mg/dl the last 24h. Received no basal and 38 units of bolus insulin yesterday. * Stressors stable. * Given low BSGs yesterday at dinner, Lantus was held. Resumed this AM at 20 units as fasting was 191mg/dL. Novolog loosened back to 21/04 today and again BSG is high at lunch. Will use a tighter carb ratio tomorrow at breakfast with looser ratio at all other times (max 15 units at lunch, dinner and HS). 07/28: * BSGs [phone]/dL the last 24h. Received 15 units of basal and 25 units of bolus insulin yesterday. * Tolerating diet, continues on cefepime. * Increase basal to 20 units given elevated fasting. Tighten novolog for improved prandial coverage and improved PO intake. 07/27: * BSGs [phone]/dL the last 24h. Received 12 units of basal and 11 units of bolus insulin yesterday. * Diet reinitiated and continues on antibiotics. * Increase basal to 15 units at HS given slightly elevated fasting. Novolog parameters tightened with advancement of diet. 07/26: * Selvin received 59 units of insulin yesterday, 40 units basal + 19 units bolus. BSGs were: 137-727-999-302-200-238 mg/dL. * Fasting BSG was below goal at 84 mg/dL this AM. Will reduce basal significantly given NPO and dextrose discontinued. Will loosen Novolog as well while NPO. 07/25: * 77 yo M admitted on 07/24/23 secondary to HHS/CESAR/Afib/Resp failure. Pharmacy has been consulted to assist with inpatient glycemic management. Patient is a Type 2 diabetic as an outpatient. Please refer to outpatient regimen and most recent HbA1c above. * BSG was 768 mg/dL upon arrival yesterday. Started on an insulin drip. Received ~ 62 units via drip over a 12 hour period. * Will give a dose of basal insulin this morning in hopes of transitioning. Bioinformatics Software Engineer okay with transitioning today. * RN shut insulin drip off right after Lantus administration without overlap due to compatibility issues. Discontinued dextrose and potassium containing fluids. Bioinformatics Software Engineer would like 1/2 NS running at 75 mL/hr. * Remains NPO. No enteral nutrition yet. Cefepime for infection. Amiodarone and Heparin drips running. * Will start Novolog q4 for time being. PLAN FOR INPATIENT GLYCEMIC CONTROL: * Basal insulin * Lantus 26 units SC daily * Bolus insulin * NovoLog per scale ACHS * Goal Range: Low 110 mg/dL - High 140 mg/dL * Correction Factor: 45 mg/dL/unit * Nutritional / Prandial insulin per carb ratio of 1 unit per 15 grams CHO consumed
[2023-08-11] MEDS: CARBOHYDRATES FOR HYPOGLYCEMIA PO PRN (16:50)
[2023-08-12] MEDS: METOPROLOL TARTRATE 25 MG TAB PO SCH ×2 (08:02→21:40)
[2023-08-12] MEDS: APIXABAN 5 MG TABLET PO SCH ×2 (08:02→21:40)
[2023-08-12] MEDS: PANTOprazole 40 MG TAB PO SCH (08:02)
[2023-08-12] MEDS: FINASTERIDE 5 MG TAB PO SCH (08:02)
[2023-08-12] MEDS: LANTUS PER UNIT CHARGE SC SCH (08:32)
[2023-08-12] MEDS: INSULIN ASPART PER UNIT CHARGE SC SCH ×4 (08:33→21:39)
[2023-08-12] MEDS: TAMSULOSIN HCL 0.4 MG CAP PO SCH (09:36)
--- NOTE | 2023-08-12 12:56 | Pharmacy Report ---
Pharmacy Glycemic Short Note 2 - Date of Service August 12, 2023 - Glycemic Short BSG Results (Last 24 hours): 08/11/23 08/11/23 08/11/23 16:46 16:48 17:07 POC Glucose 68 L* 71 92 08/11/23 08/12/23 08/12/23 20:31 07:41 11:35 POC Glucose 176 H 120 H 130 H OUTPATIENT ANTIDIABETIC REGIMEN: * Xultophy 20 units SC HS * Novolog 5 units SC AC * HbA1c: 10.7% (04/29/23) ASSESSMENT: 08/12: * Patient received 38 units of insulin yesterday, 26 units basal + 12 units bolus. BSGs were 787-258-23-176 mg/dL. * Patient had a hypoglycemic event at dinner last night. Second day in a row with hypoglycemia. Fortunately, patient was asymptomatic but did require 15 g of carbs in the form of orange juice to correct BSG to 92 mg/dL. * Have significantly loosened Novolog parameters since Thursday. Will remove carb coverage with lunch meal in hopes of prevent any further hypoglycemia. * Fasting BSG 120 mg/dL this AM. No change to basal. 08/11: * Selvin received 45 units of insulin yesterday, 26 units basal + 19 units bolus. BSGs were 399-603-187-59 mg/dL. * Patient had a hypoglycemic event at bedtime last night. Thankfully, he was asymptomatic. Bolus insulin was held at this time. Patient received 15 g of carbs in the form of orange juice. * Fasting BSG was 164 mg/dL this morning. Believe this is related to treatment of hypoglycemia before bed. I did loosen carb ratio this morning. Lunchtime BSG trended down to 129 mg/dL. Will further loosen carb ratio and loosen correction factor to prevent any further instances of hypoglycemia. No changes to basal. 08/10: * Patient received 47 units of insulin yesterday, 30 units basal + 17 units bolus. BSGs were: 008-07-91-173 mg/dL. * Given borderline low blood sugars yesterday, plan to reduce insulin regimen further today. * Novolog was loosened significantly yesterday so will continue with this to see how postprandials respond. * Lantus will be reduced by ~15% today given fasting BSG this AM of 103 mg/dL. 08/08: * Selvin received 59 units of insulin yesterday of which 32 were basal * Slight reduction (5%) in basal insulin based on yesterday's fasting BSG, will continue this dose since fasting BSG was in goal range today. * Lunchtime BSG elevated yesterday- tightened breakfast Novolog parameters to values in between 08/05 (which caused lunchtime low) and 08/06 (which led to hyperglycemia. * Hypoglycemia at dinnertime yesterday- likely due to overcorrection of lunchtime hyperglycemia- loosened lunch, dinner, and bedtime Novolog correction factor * No additional stressor noted at this time. 08/06: * SCr 1.87 this morning, down from 2.37 * Fasting BSG 90 mg/dL on labs, 103 mg/dL on POC BSG. Will reduce lantus to 32 units today (35 yesterday) * Novolog loosened yesterday with BSG 74 mg/dL at lunchtime; trended up rest of day; will tighten back to previous carb ratio * Loosened breakfast for this morning given low at lunch yesterday- monitor 08/04: * Stressors stable - ordered T2DM diet * AM fasting BSG above goal range for many days (with the exception of 08/02, but BSG trended up overnight that night). Will increase Lantus * Dinnertime BSG below goal yesterday. Will loosen Novolog in the latter part of the day, particularly at lunch, to help prevent hypoglycemia. 08/03: * BSGs yesterday 532-107-16-258 mg/dL. Received 30 units of basal and 44 units of bolus yesterday. * Breakfast insulin given ~0900 which may have contributed to high BSG at lunch and subsequent low with dinner. Will loosen CR/CF with lunch today, however as patient was also below goal at dinner on 08/01.- monitor * Fasting 190 mg/dL this morning- monitor; consider increase in basal if trend continues (125 mg/dL yesterday). 07/31: * BSGs elevated the last 24h: 421-779-798-229mg/dL. Received 23 units of basal and 42 units of bolus insulin yesterday. * Further titrate basal, 30 units. Novolog carb ratio tightened at breakfast and lunch. Continue with looser parameters at dinner and HS. 07/30: * BSGs 441-57-521-252mg/dL the last 24h. Received 20 units of basal and 42 units of bolus insulin yesterday. * Other stressors stable. * Titrate basal given elevated fasting to 23 units. Novolog further tightened at breakfast. Will loosen lunch, dinner, HS parameters given tendency to go low at night (continue max 15 units) 07/29: * BSGs 54-48-515-283mg/dl the last 24h. Received no basal and 38 units of bolus insulin yesterday. * Stressors stable. * Given low BSGs yesterday at dinner, Lantus was held. Resumed this AM at 20 units as fasting was 191mg/dL. Novolog loosened back to 20/6 today and again BSG is high at lunch. Will use a tighter carb ratio tomorrow at breakfast with looser ratio at all other times (max 15 units at lunch, dinner and HS). 07/28: * BSGs [phone]/dL the last 24h. Received 15 units of basal and 25 units of bolus insulin yesterday. * Tolerating diet, continues on cefepime. * Increase basal to 20 units given elevated fasting. Tighten novolog for improved prandial coverage and improved PO intake. 07/27: * BSGs 876-156-097-173mg/dL the last 24h. Received 12 units of basal and 11 units of bolus insulin yesterday. * Diet reinitiated and continues on antibiotics. * Increase basal to 15 units at HS given slightly elevated fasting. Novolog mckenzie hayward tightened with advancement of diet. 07/26: * Selvin received 59 units of insulin yesterday, 40 units basal + 19 units bolus. BSGs were: 170-682-054-302-200-238 mg/dL. * Fasting BSG was below goal at 84 mg/dL this AM. Will reduce basal significantly given NPO and dextrose discontinued. Will loosen Novolog as well while NPO. 07/25: * 77 yo M admitted on 07/24/23 secondary to HHS/CESAR/Afib/Resp failure. Pharmacy has been consulted to assist with inpatient glycemic management. Patient is a Type 2 diabetic as an outpatient. Please refer to outpatient regimen and most recent HbA1c above. * BSG was 768 mg/dL upon arrival yesterday. Started on an insulin drip. Received ~ 62 units via drip over a 12 hour period. * Will give a dose of basal insulin this morning in hopes of transitioning. Heater Helper okay with transitioning today. * RN shut insulin drip off right after Lantus administration without overlap due to compatibility issues. Discontinued dextrose and potassium containing fluids. Heater Helper would like 1/2 NS running at 75 mL/hr. * Remains NPO. No enteral nutrition yet. Cefepime for infection. Amiodarone and Heparin drips running. * Will start Novolog q4 for time being. PLAN FOR INPATIENT GLYCEMIC CONTROL: * Basal insulin * Lantus 26 units SC daily * Bolus insulin * NovoLog per scale ACHS * Goal Range: Low 110 mg/dL - High 140 mg/dL * Breakfast, Dinner, Bedtime: Correction Factor: 45 mg/dL/unit; Nutritional / Prandial insulin per carb ratio of 1 unit per 15 grams CHO consumed * Lunchtime: Correction Factor: 45 mg/dL/unit; No carb coverage
[2023-08-12] MEDS ORDERED: ALBUTEROL HFA 8 GM INHALER INH PRN (13:37)
--- NOTE | 2023-08-12 13:42 | Hospitalist Progress Note ---
Date of Service August 12, 2023 Assessment & Plan (1) DKA (diabetic ketoacidosis): (2) High anion gap metabolic acidosis: (3) Metabolic encephalopathy: (4) Paroxysmal atrial fibrillation: (5) CESAR (acute kidney injury): (6) Elevated troponin: (7) Acute electrocardiogram changes: (8) Chronic heart failure with preserved ejection fraction (HFpEF): (9) Severe aortic stenosis: Plan Patient is Critically ill 77-year-old male who has a significant past medical history of medication noncompliance, T2DM, PAF anticoagulated on Eliquis, chronic HFpEF, moderate to severe aortic stenosis, HTN, HLD and BPH who presents to ED via EMS secondary to altered mental status. Sepsis secondary to Bacteremia, Complicated UTI In the setting of indwelling Hanna catheter High anion gap metabolic acidosis H/O BPH/obstructive uropathy --CT ABD:Wall thickening of the urinary bladder with indwelling Hanna catheter. Correlate for UTI. Hepatic steatosis. Sludge in the gallbladder. No hydronephrosis or nephrolithiasis. Mild fullness of the bilateral renal collecting systems. Diverticulosis, without acute diverticulitis. No small bowel obstruction. No free intraperitoneal air . -- Blood and urine culture grew Serratia marcescens -- Repeat blood cultures negative --Hanna catheter was exchanged while in ED per record --Completed IV cefepime course on 08/03 --Received IV fluids --Appreciate ID input --Appreciate urology input Plan to continue Hanna catheter as recommended by urology with monthly changes, last changed 07/24 Restarted Flomax, finasteride Leukocytosis resolved Waiting for placement Plan to discharge to rehab facility when accepted HHS--POA in the setting of Sepsis Metabolic encephalopathy --CT Head:No acute intracranial hemorrhage, midline shift, or mass effect. -- HbA1c 10.7 Mental status back to baseline CESAR/ATN Likely from prerenal, sepsis Leg Edema Chronic obstructive uropathy --Venous Doppler:No evidence of deep venous thrombus within the bilateral lower extremities although exam technically compromised, as above. 3.6 x 0.7 x 2.4 cm right popliteal cyst. Baseline Cr 0.8 Cr 1.87 today Appreciate nephrology, Urology input IV diuretics as needed Continue Hanna catheter Needs follow-up with urology, nephrology upon discharge Cr 1.8 today Atrial Fibrillation in RVR In the setting of sepsis H/O A fib Required cardioversion in ICU as per record Currently in sinus IV Amiodarone discontinued Restarted metoprolol On Eliquis for anticoagulation DM II Last HbA1c 10.7 Hold p.o. medications Continue insulin per protocol Glycemic pharmacist on board, ok with liberal control to prevent lows, they are working on decreasing insulin Appreciate glycemic pharmacist help Elevated troponin Likely demand ischemia ECHO no regional wall motion abnormality Chronic HFpEF Severe Aortic Stenosis HTN HLD Daily weights/strict intake and output recent echo: 04/2023 EF 50-55%, moderate concentric LVH, moderate to severe aortic stenosis, moderate mitral calcification, RV normal in size and function Plan to resume diuretics as able Monitor volume status Asthma pt reports he has a hx of this, but not documented in record prn albuterol incentive spirometry DVT Px: Eliquis CODE STATUS DNI DNR Disposition Pending, Office of ageing involved PT/OT evaluation Case management to help with discharge planning Pt was seen and examined in collaboration with Dr. Elizondo, please see addendum Admission and Anticipated Discharge Date Admission Date: July 24, 2023 Supervising Physician Co-Signing Physician Notes Patient is seen and examined at bedside. Waiting for placement. Clinically no significant change from yesterday. Physical Exam: Vitals signs as noted above General Appearance:Moderately built and nourished, no apparent distress Head: normocephalic, Atraumatic Eyes: normal inspection, EOMI Neck: supple, Trachea midline Respiratory/Chest: Normal breath sounds, CTA, No accessory muscle use Cardiovascular: S1, S2, + murmur Abdomen/GI:Soft, Non tender, Bowel sounds present Extremities/Musculoskeletal:normal inspection, 1+ B/L LE edema + Hanna Neurologic/Psych:AAO, grossly no focal neurological deficits, +Hearing impairment Skin: normal color, warm Sepsis secondary to Bacteremia, Complicated UTI In the setting of indwelling Hanna catheter High anion gap metabolic acidosis H/O BPH/obstructive uropathy HHS Continue Hanna catheter as recommended by urology with monthly exchanges. Medically stable for discharge. Plan to discharged once placement available Cr stable Case management to help with discharge planning Agree with trial of albuterol as needed I personally reviewed the record. Patient is interviewed and examined at bedside. Patient's care is coordinated with Marga Le PA-C. Please refer to the documentation above for details of patient's presentation and for discussion of other issues. Subjective Pt was seen and examined in room 378-1. Follow up multiple medical issues, now waiting placement. Offers no acute concerns today. Denies f/c/s, chest pain, sob, n/v/d. Asking when he is going to get out of here. He asks if I have ever heard of, "asthma." States he has it and have been more sob lately and mild cough. Denies wheezing. Denies taking an inhaler in the past. Denies f/c/s, chest pain, sob, n/v/d. we communicate via written text as he is very hard of hearing. Review of Systems Review of Systems: All systems reviewed & are unremarkable except as noted in HPI & below Physical Exam Physical Exam: Gen: WD/WN, NAD, A&O x4 HEENT: +very hard of hearing, Normocephalic, atraumatic, conjunctivae moist, sclerae anicteric, mucous membranes moist. Lung: Clear to Auscultation bilaterally, no wheezes/rales/rhonchi Heart: Regular rate, regular rhythm, +murmur, rubs, or gallops Abdomen: Soft, NT, ND +BS x 4 Extremities: trace b/l edema Skin: Warm, no rash, negative turgor. Results & Data Results & Data Vital Signs (Past 12 Hours) Vital Signs Temp Pulse Resp BP Pulse Ox O2 Del Method 08/12/23 07:19 36.9 C 61 16 105/60 97 Room Air Medications Administered Current Inpatient Medications Acetaminophen (Acetaminophen 325 Mg Tab) 650 mg PO QID PRN PRN Reason: pain/fever Stop: 08/24/23 23:06 Albuterol (Albuterol Hfa 8 Gm Inhaler) 2 puffs INH QID PRN PRN Reason: sob/wheezing Stop: 09/11/23 16:59 Apixaban (Apixaban 5 Mg Tablet) 5 mg PO BID [facility] Stop: 08/25/23 20:59 Last Admin: 08/12/23 08:02 Dose: 5 mg Dextrose (Dextrose 50% 50 Ml Syringe) 25 - 50 ml IV UD PRN; Protocol PRN Reason: Hypoglycemia Protocol Stop: 08/23/23 15:25 Finasteride (Finasteride 5 Mg Tab) 5 mg PO DAILY [facility] Stop: 09/05/23 08:59 Last Admin: 08/12/23 08:02 Dose: 5 mg Furosemide (Furosemide Inj 20 Mg/2 Ml Vial) 20 mg IV Q8H [facility] Stop: 08/27/23 11:59 Last Admin: 07/29/23 12:12 Dose: 20 mg Glucagon (Glucagon For Inj 1 Mg Vial) 1 mg SQ UD PRN; Protocol PRN Reason: Hypoglycemia Protocol Stop: 08/23/23 15:25 Glucose (Glucose 40% Gel 15 Gm Tube) 15 - 30 gm PO UD PRN; Protocol PRN Reason: Hypoglycemia Protocol Stop: 08/23/23 15:25 Glucose (Glucose 10 Tab/Tube) 4 - 8 tab PO UD PRN; Protocol PRN Reason: Hypoglycemia Treatment Stop: 08/23/23 15:25 Insulin Aspart (Insulin Aspart Per Unit Charge) 0 units SC TID@0730,1630,2100 [facility]; Protocol Stop: 09/08/23 16:29 Last Admin: 08/12/23 08:33 Dose: 3 units Insulin Aspart (Insulin Aspart Per Unit Charge) 0 units SC DAILY@1130 [facility]; Protocol Stop: 09/11/23 11:29 Last Admin: 08/12/23 12:28 Dose: Not Given Insulin Glargine (Lantus Per Unit Charge) 26 units SC DAILY [facility]; Protocol Stop: 09/03/23 08:59 Last Admin: 08/12/23 08:32 Dose: 26 units Metoprolol Tartrate (Metoprolol Tartrate 25 Mg Tab) 25 mg PO BID [facility] Stop: 08/24/23 08:59 Last Admin: 08/12/23 08:02 Dose: 25 mg Metoprolol Tartrate (Metoprolol Tartrate 1 Mg/Ml Vial) 5 mg IV Q4 PRN PRN Reason: HR>120 Stop: 08/24/23 11:59 Miscellaneous (Carbohydrates For Hypoglycemia ) 15 - 30 gm PO UD PRN PRN Reason: Hypoglycemia Protocol Stop: 08/23/23 15:25 Last Admin: 08/11/23 16:50 Dose: 15 gm Miscellaneous Information (Pharmacy Glycemic Mgmt Consult) 1 each N/A UD PRN PRN Reason: Consult Stop: 08/23/23 19:41 Pantoprazole Sodium (Pantoprazole 40 Mg Tab) 40 mg PO DAILY [facility] Stop: 08/24/23 08:59 Last Admin: 08/12/23 08:02 Dose: 40 mg Tamsulosin HCl (Tamsulosin Hcl 0.4 Mg Cap) 0.4 mg PO DAILY [facility] Stop: 09/05/23 08:59 Last Admin: 08/12/23 09:36 Dose: 0.4 mg Tramadol HCl (Tramadol Hcl 50 Mg Tablet) 25 - 50 mg PO Q4H PRN PRN Reason: Pain Stop: 08/25/23 05:21 Last Admin: 08/02/23 23:22 Dose: 50 mg
[2023-08-13] MEDS: INSULIN ASPART PER UNIT CHARGE SC SCH ×4 (09:00→20:13)
[2023-08-13] MEDS: LANTUS PER UNIT CHARGE SC SCH (09:01)
[2023-08-13] MEDS: APIXABAN 5 MG TABLET PO SCH ×2 (09:06→20:21)
[2023-08-13] MEDS: TAMSULOSIN HCL 0.4 MG CAP PO SCH (09:06)
[2023-08-13] MEDS: PANTOprazole 40 MG TAB PO SCH (09:06)
[2023-08-13] MEDS: METOPROLOL TARTRATE 25 MG TAB PO SCH ×2 (09:06→20:21)
[2023-08-13] MEDS: FINASTERIDE 5 MG TAB PO SCH (10:09)
--- NOTE | 2023-08-13 16:40 | Hospitalist Progress Note ---
Date of Service August 13, 2023 Assessment & Plan (1) DKA (diabetic ketoacidosis): (2) High anion gap metabolic acidosis: (3) Metabolic encephalopathy: (4) Paroxysmal atrial fibrillation: (5) CESAR (acute kidney injury): (6) Elevated troponin: (7) Acute electrocardiogram changes: (8) Chronic heart failure with preserved ejection fraction (HFpEF): (9) Severe aortic stenosis: Plan Patient is Critically ill 77-year-old male who has a significant past medical history of medication noncompliance, T2DM, PAF anticoagulated on Eliquis, chronic HFpEF, moderate to severe aortic stenosis, HTN, HLD and BPH who presents to ED via EMS secondary to altered mental status. Sepsis secondary to Bacteremia, Complicated UTI In the setting of indwelling Hanna catheter High anion gap metabolic acidosis H/O BPH/obstructive uropathy --CT ABD:Wall thickening of the urinary bladder with indwelling Hanna catheter. Correlate for UTI. Hepatic steatosis. Sludge in the gallbladder. No hydronephrosis or nephrolithiasis. Mild fullness of the bilateral renal collecting systems. Diverticulosis, without acute diverticulitis. No small bowel obstruction. No free intraperitoneal air . -- Blood and urine culture grew Serratia marcescens -- Repeat blood cultures negative --Hanna catheter was exchanged while in ED per record --Completed IV cefepime course on 08/03 --Received IV fluids --Appreciate ID input --Appreciate urology input Plan to continue Hanna catheter as recommended by urology with monthly changes, last changed 07/24 Restarted Flomax, finasteride Leukocytosis resolved Waiting for placement.. To be determined as patient has social issues and patie nt not interested in PCF [facility]--POA in the setting of Sepsis Metabolic encephalopathy --CT Head:No acute intracranial hemorrhage, midline shift, or mass effect. -- HbA1c 10.7 Mental status back to baseline CESAR/ATN Likely from prerenal, sepsis Leg Edema Chronic obstructive uropathy --Venous Doppler:No evidence of deep venous thrombus within the bilateral lower extremities although exam technically compromised, as above. 3.6 x 0.7 x 2.4 cm right popliteal cyst. Baseline Cr 0.8 Cr 1.87 today Appreciate nephrology, Urology input IV diuretics as needed Continue Hanna catheter Needs follow-up with urology, nephrology upon discharge Cr 1.8 Recheck BMP tomorrow Atrial Fibrillation in RVR In the setting of sepsis H/O A fib Required cardioversion in ICU as per record Currently in sinus IV Amiodarone discontinued Restarted metoprolol On Eliquis for anticoagulation DM II Last HbA1c 10.7 Hold p.o. medications Continue insulin per protocol Glycemic pharmacist on board, ok with liberal control to prevent lows, they are working on decreasing insulin Appreciate glycemic pharmacist help Elevated troponin Likely demand ischemia ECHO no regional wall motion abnormality Chronic HFpEF Severe Aortic Stenosis HTN HLD Daily weights/strict intake and output recent echo: 04/2023 EF 50-55%, moderate concentric LVH, moderate to severe aorti c stenosis, moderate mitral calcification, RV normal in size and function Plan to resume diuretics as able Monitor volume status Asthma pt reports he has a hx of this, but not documented in record prn albuterol incentive spirometry DVT Px: Eliquis CODE STATUS DNI DNR Disposition Office of ageing involved Social Issues: Currently patient is homeless. Patient has poor judgment and clinically complex resulting in current hospitalization Patient has high risk to deteriorate without supervision/follow-up/and continuing current care Plan to discuss with patient's family/patient--to assess risks and complications if his co-morbidities are left untreated Will discuss with patient's family once family meeting arranged. Admission and Anticipated Discharge Date Admission Date: July 24, 2023 Subjective Patient is seen and examined at bedside Poor historian secondary to significant hearing impairment States feeling well Waiting for placement Denies any chest pain, dyspnea, dizziness, nausea, vomiting, abdominal pain Review of Systems Review of Systems: All systems reviewed & are unremarkable except as noted in Subjective Physical Exam Physical Exam: Physical Exam: Vitals signs as noted above General Appearance:Moderately built and nourished, no apparent distress Head: normocephalic, Atraumatic Eyes: normal inspection, EOMI Neck: supple, Trachea midline Respiratory/Chest: Normal breath sounds, CTA, No accessory muscle use Cardiovascular: S1, S2, + murmur Abdomen/GI:Soft, Non tender, Bowel sounds present Extremities/Musculoskeletal:normal inspection, 1+ B/L LE edema + Hanna Neurologic/Psych:AAO, grossly no focal neurological deficits, +Hearing impairment Skin: normal color, warm Results & Data Results & Data Vital Signs (Past 12 Hours) Vital Signs Temp Pulse Resp BP Pulse Ox O2 Del Method 08/13/23 15:07 36.4 C L 64 15 136/73 94 Room Air
[2023-08-14 07:45] LABS: Hematocrit (blood only) 32.3 % (42.0-52.0); Hemoglobin 10.7 g/dl (14.0-18.0); Mean Corpuscular Hemoglobin 28.6 pg (25.0-34.0); Mean Corpuscular Hgb Conc 33.1 g/dL (32.0-36.0); Mean Corpuscular Volume 86.4 fL (80.0-100.0); Mean Platelet Volume 10.2 fL (9.4-12.4); Platelet Count 286 K/uL (130-400); RDW Coefficient of Variation 13.5 % (11.5-14.5); RDW Standard Deviation 42.1 fL (36.4-46.3); Red Blood Count 3.74 M/uL (4.70-6.10); White Blood Count 15.85 K/ul (4.8-10.8)
[2023-08-14] MEDS: APIXABAN 5 MG TABLET PO SCH ×2 (07:50→20:54)
[2023-08-14] MEDS: PANTOprazole 40 MG TAB PO SCH (07:50)
[2023-08-14] MEDS: TAMSULOSIN HCL 0.4 MG CAP PO SCH (07:50)
[2023-08-14] MEDS: METOPROLOL TARTRATE 25 MG TAB PO SCH ×2 (07:50→20:54)
[2023-08-14] MEDS: FINASTERIDE 5 MG TAB PO SCH (07:50)
[2023-08-14 08:00] LABS: BUN Creatinine Ratio 28.2 (10-20); Calcium 8.8 mg/dl (8.6-10.3); Creatinine Clr Calc Pharmacy 33.3 ml/min; Est GFR (African American) 41.7 ml/min
[2023-08-14] MEDS: LANTUS PER UNIT CHARGE SC SCH (09:20)
[2023-08-14] MEDS: INSULIN ASPART PER UNIT CHARGE SC SCH ×5 (09:20→21:07)
--- NOTE | 2023-08-14 12:07 | Pharmacy Report ---
Pharmacy Glycemic Short Note 2 - Date of Service August 14, 2023 - Glycemic Short BSG Results (Last 24 hours): 08/13/23 08/13/23 08/13/23 12:01 16:34 20:00 Glucose POC Glucose 85 109 H 142 H 08/14/23 08/14/23 08/14/23 06:56 07:50 11:26 Glucose 124 H POC Glucose 112 H 240 H OUTPATIENT ANTIDIABETIC REGIMEN: * Xultophy 20 units SC HS * Novolog 5 units SC AC * HbA1c: 10.7% (04/29/23) ASSESSMENT: 08/14: * Selvin received 33 units of insulin yesterday of which 22 were basal * Fasting BSG within goal range, continue basal regimen * Lunchtime BSG elevated, added carbohydrate coverage again with lunch * No additional stressor noted at this time. 08/12: * Patient received 38 units of insulin yesterday, 26 units basal + 12 units bolus. BSGs were 833-273-48-176 mg/dL. * Patient had a hypoglycemic event at dinner last night. Second day in a row with hypoglycemia. Fortunately, patient was asymptomatic but did require 15 g of carbs in the form of orange juice to correct BSG to 92 mg/dL. * Have significantly loosened Novolog parameters since Thursday. Will remove carb coverage with lunch meal in hopes of prevent any further hypoglycemia. * Fasting BSG 120 mg/dL this AM. No change to basal. 08/11: * Selvin received 45 units of insulin yesterday, 26 units basal + 19 units bolus. BSGs were 084-297-148-59 mg/dL. * Patient had a hypoglycemic event at bedtime last night. Thankfully, he was asymptomatic. Bolus insulin was held at this time. Patient received 15 g of carbs in the form of orange juice. * Fasting BSG was 164 mg/dL this morning. Believe this is related to treatment of hypoglycemia before bed. I did loosen carb ratio this morning. Lunchtime BSG trended down to 129 mg/dL. Will further loosen carb ratio and loosen correction factor to prevent any further instances of hypoglycemia. No changes to basal. 08/10: * Patient received 47 units of insulin yesterday, 30 units basal + 17 units bolus. BSGs were: 701-30-67-173 mg/dL. * Given borderline low blood sugars yesterday, plan to reduce insulin regimen further today. * Novolog was loosened significantly yesterday so will continue with this to see how postprandials respond. * Lantus will be reduced by ~15% today given fasting BSG this AM of 103 mg/dL. 08/08: * Selvin received 59 units of insulin yesterday of which 32 were basal * Slight reduction (5%) in basal insulin based on yesterday's fasting BSG, will continue this dose since fasting BSG was in goal range today. * Lunchtime BSG elevated yesterday- tightened breakfast Novolog parameters to values in between 08/05 (which caused lunchtime low) and 08/06 (which led to hyperglycemia. * Hypoglycemia at dinnertime yesterday- likely due to overcorrection of lunchtime hyperglycemia- loosened lunch, dinner, and bedtime Novolog correction factor * No additional stressor noted at this time. 08/06: * SCr 1.87 this morning, down from 2.37 * Fasting BSG 90 mg/dL on labs, 103 mg/dL on POC BSG. Will reduce lantus to 32 units today (35 yesterday) * Novolog loosened yesterday with BSG 74 mg/dL at lunchtime; trended up rest of day; will tighten back to previous carb ratio * Loosened breakfast for this morning given low at lunch yesterday- monitor 08/04: * Stressors stable - ordered T2DM diet * AM fasting BSG above goal range for many days (with the exception of 08/02, but BSG trended up overnight that night). Will increase Lantus * Dinnertime BSG below goal yesterday. Will loosen Novolog in the latter part of the day, particularly at lunch, to help prevent hypoglycemia. 08/03: * BSGs yesterday 816-127-39-258 mg/dL. Received 30 units of basal and 44 units of bolus yesterday. * Breakfast insulin given ~0900 which may have contributed to high BSG at lunch and subsequent low with dinner. Will loosen CR/CF with lunch today, however as patient was also below goal at dinner on 08/01.- monitor * Fasting 190 mg/dL this morning- monitor; consider increase in basal if trend continues (125 mg/dL yesterday). 07/31: * BSGs elevated the last 24h: 190-052-090-229mg/dL. Received 23 units of basal and 42 units of bolus insulin yesterday. * Further titrate basal, 30 units. Novolog carb ratio tightened at breakfast and lunch. Continue with looser parameters at dinner and HS. 07/30: * BSGs 403-25-350-252mg/dL the last 24h. Received 20 units of basal and 42 units of bolus insulin yesterday. * Other stressors stable. * Titrate basal given elevated fasting to 23 units. Novolog further tightened at breakfast. Will loosen lunch, dinner, HS parameters given tendency to go low at night (continue max 15 units) 07/29: * BSGs 95-35-073-283mg/dl the last 24h. Received no basal and 38 units of bolus insulin yesterday. * Stressors stable. * Given low BSGs yesterday at dinner, Lantus was held. Resumed this AM at 20 units as fasting was 191mg/dL. Novolog loosened back to 20/6 today and again BSG is high at lunch. Will use a tighter carb ratio tomorrow at breakfast with looser ratio at all other times (max 15 units at lunch, dinner and HS). 07/28: * BSGs 332-737-251-229mg/dL the last 24h. Received 15 units of basal and 25 units of bolus insulin yesterday. * Tolerating diet, continues on cefepime. * Increase basal to 20 units given elevated fasting. Tighten novolog for improved prandial coverage and improved PO intake. 07/27: * BSGs 589-266-499-173mg/dL the last 24h. Received 12 units of basal and 11 units of bolus insulin yesterday. * Diet reinitiated and continues on antibiotics. * Increase basal to 15 units at HS given slightly elevated fasting. Novolog parameters tightened with advancement of diet. 07/26: * Selvin received 59 units of insulin yesterday, 40 units basal + 19 units bolus. BSGs were: 664-438-908-302-200-238 mg/dL. * Fasting BSG was below goal at 84 mg/dL this AM. Will reduce basal significantly given NPO and dextrose discontinued. Will loosen Novolog as well while NPO. 07/25: * 77 yo M admitted on 07/24/23 secondary to HHS/CESAR/Afib/Resp failure. Pharmacy has been consulted to assist with inpatient glycemic management. Patient is a Type 2 diabetic as an outpatient. Please refer to outpatient regimen and most recent HbA1c above. * BSG was 768 mg/dL upon arrival yesterday. Started on an insulin drip. Received ~ 62 units via drip over a 12 hour period. * Will give a dose of basal insulin this morning in hopes of transitioning. Coil Cleaner okay with transitioning today. * RN shut insulin drip off right after Lantus administration without overlap due to compatibility issues. Discontinued dextrose and potassium containing fluids. Coil Cleaner would like 1/2 NS running at 75 mL/hr. * Remains NPO. No enteral nutrition yet. Cefepime for infection. Amiodarone and Heparin drips running. * Will start Novolog q4 for time being. PLAN FOR INPATIENT GLYCEMIC CONTROL: * Basal insulin * Lantus 22 units SC daily * Bolus insulin * NovoLog per scale ACHS * Goal Range: Low 110 mg/dL - High 140 mg/dL * Correction Factor: 40 mg/dL/unit * Nutritional / Prandial insulin per carb ratio of 1 unit per 9 grams CHO consumed
--- NOTE | 2023-08-14 19:31 | Hospitalist Progress Note ---
Date of Service August 14, 2023 Assessment & Plan (1) DKA (diabetic ketoacidosis): (2) High anion gap metabolic acidosis: (3) Metabolic encephalopathy: (4) Paroxysmal atrial fibrillation: (5) CESAR (acute kidney injury): (6) Elevated troponin: (7) Acute electrocardiogram changes: (8) Chronic heart failure with preserved ejection fraction (HFpEF): (9) Severe aortic stenosis: Plan Patient is Critically ill 77-year-old male who has a significant past medical history of medication noncompliance, T2DM, PAF anticoagulated on Eliquis, chronic HFpEF, moderate to severe aortic stenosis, HTN, HLD and BPH who presents to ED via EMS secondary to altered mental status. Sepsis secondary to Serratia bacteremia with UTI related to indwelling Hanna catheter-resolved with IV antibiotics completed 08/03 High anion gap metabolic acidosis-resolved H/O BPH/obstructive uropathy --CT ABD:Wall thickening of the urinary bladder with indwelling Hanna catheter. Correlate for UTI. Hepatic steatosis. Sludge in the gallbladder. No hydronephrosis or nephrolithiasis. Mild fullness of the bilateral renal collecting systems. Diverticulosis, without acute diverticulitis. No small bowel obstruction. No free intraperitoneal air . -- Blood and urine culture grew Serratia marcescens -- Repeat blood cultures negative --Hanna catheter was exchanged while in ED per record --Completed IV cefepime course on 08/03 -- Seen by ID and urology. Recommendations noted. --Plan to continue Hanna catheter as recommended by urology with monthly changes, last changed 07/24 --Continue Flomax, finasteride Patient has new leukocytosis today. Repeat lactate and Pro-Oswaldo is negative which is reassuring. Repeat blood culture is pending. No fever. Will monitor off of antibiotics for now. Consider if spikes a fever [facility]--POA in the setting of Sepsis Metabolic encephalopathy --CT Head:No acute intracranial hemorrhage, midline shift, or mass effect. -- HbA1c 10.7 Mental status back to baseline CESAR/ATN- Likely from prerenal, sepsis. Creatinine was 3.2 on 07/24 which is improved and now plateaued at 1.7 which might be new baseline. Will monitor renal function, avoid nephrotoxic's. Will need follow-up with nephrology upon discharge Atrial Fibrillation in RVR In the setting of sepsis Required cardioversion in ICU as per record Required IV Amiodarone which has since been discontinued - Currently in sinus -On metoprolol and Eliquis DM II Last HbA1c 10.7 Hold p.o. medications Continue insulin per protocol-glycemic pharmacist manage Chronic HFpEF Severe Aortic Stenosis Daily weights/strict intake and output recent echo: 04/2023 EF 50-55%, moderate concentric LVH, moderate to severe aortic stenosis, moderate mitral calcification, RV normal in size and function Plan to resume diuretics as able Monitor volume status which is currently stable DVT Px:Eliquis CODE STATUS- DNI DNR Disposition-pending infection work-up with new leukocytosis. Plan is for discharge with his daughter once medically stable. Admission and Anticipated Discharge Date Admission Date: July 24, 2023 Subjective Patient was seen and examined at bedside. He is very hard of hearing. He denies any new issues. No fever, chest pain, shortness of breath, nausea or vomiting Review of Systems Review of Systems: All systems reviewed & are unremarkable except as noted in Subjective Physical Exam Physical Exam: General: Lying comfortably in bed, not in distress, on room air HEENT: ARNOLDO, MMM Chest: Clear present bilaterally CVS: Regular rate and rhythm, normal heart sounds, + murmur Abdomen: Soft, non tender, not distended, normal bowel sounds Neuro: Awake, alert, very hard of hearing Extremities: No cyanosis, clubbing, trace leg edema. Some old scabs : Hanna with clear urine Results & Data Results & Data Vital Signs (Past 12 Hours) Vital Signs Temp Pulse Resp BP Pulse Ox O2 Del Method 08/14/23 14:46 36.5 C 63 17 94/52 L 97 Room Air 08/14/23 07:39 37.1 C 73 16 104/61 94 Room Air Laboratory Results Short CBC 08/14/23 Range/Units 06:56 WBC 15.85 H (4.8-10.8) K/ul Hgb 10.7 L (14.0-18.0) g/dl Hct 32.3 L (42.0-52.0) % Plt Count 286 (130-400) K/uL BMP 08/14/23 06:56 Sodium 134 L Potassium 4.0 Chloride 100 Carbon Dioxide 28 BUN 50 H Creatinine 1.77 H Glucose 124 H Calcium 8.8
[2023-08-15] MEDS: METOPROLOL TARTRATE 25 MG TAB PO SCH ×2 (07:44→20:49)
[2023-08-15] MEDS: TAMSULOSIN HCL 0.4 MG CAP PO SCH (07:44)
[2023-08-15] MEDS: APIXABAN 5 MG TABLET PO SCH ×2 (07:44→20:49)
[2023-08-15] MEDS: FINASTERIDE 5 MG TAB PO SCH (07:44)
[2023-08-15] MEDS: PANTOprazole 40 MG TAB PO SCH (07:44)
[2023-08-15 08:00] LABS: Hematocrit (blood only) 32.7 % (42.0-52.0); Hemoglobin 10.8 g/dl (14.0-18.0); Mean Corpuscular Hemoglobin 28.9 pg (25.0-34.0); Mean Corpuscular Volume 87.4 fL (80.0-100.0); Mean Platelet Volume 10.4 fL (9.4-12.4); Platelet Count 280 K/uL (130-400); RDW Coefficient of Variation 13.6 % (11.5-14.5); RDW Standard Deviation 43.9 fL (36.4-46.3); Red Blood Count 3.74 M/uL (4.70-6.10); White Blood Count 12.32 K/ul (4.8-10.8)
[2023-08-15 08:25] LABS: BUN Creatinine Ratio 29.3 (10-20); Calcium 9.1 mg/dl (8.6-10.3); Creatinine Clr Calc Pharmacy 35.9 ml/min; Est GFR (African American) 45.7 ml/min; Est GFR (Non-African American) 39.5 ml/min; Potassium 4.2 mmol/L (3.5-5.1)
[2023-08-15] MEDS: LANTUS PER UNIT CHARGE SC SCH (08:35)
[2023-08-15] MEDS: INSULIN ASPART PER UNIT CHARGE SC SCH ×5 (08:35→21:34)
--- NOTE | 2023-08-15 13:52 | Hospitalist Progress Note ---
Date of Service August 15, 2023 Assessment & Plan (1) DKA (diabetic ketoacidosis): (2) High anion gap metabolic acidosis: (3) Metabolic encephalopathy: (4) Paroxysmal atrial fibrillation: (5) CESAR (acute kidney injury): (6) Elevated troponin: (7) Acute electrocardiogram changes: (8) Chronic heart failure with preserved ejection fraction (HFpEF): (9) Severe aortic stenosis: Plan Patient is Critically ill 77-year-old male who has a significant past medical history of medication noncompliance, T2DM, PAF anticoagulated on Eliquis, chronic HFpEF, moderate to severe aortic stenosis, HTN, HLD and BPH who presents to ED via EMS secondary to altered mental status. Sepsis secondary to Serratia bacteremia with UTI related to indwelling Hanna catheter-resolved with IV antibiotics completed 08/03 High anion gap metabolic acidosis-resolved H/O BPH/obstructive uropathy --CT ABD:Wall thickening of the urinary bladder with indwelling Hanna catheter. Correlate for UTI. Hepatic steatosis. Sludge in the gallbladder. No hydronephrosis or nephrolithiasis. Mild fullness of the bilateral renal collecting systems. Diverticulosis, without acute diverticulitis. No small bowel obstruction. No free intraperitoneal air . -- Blood and urine culture grew Serratia marcescens -- Repeat blood cultures negative --Hanna catheter was exchanged while in ED per record --Completed IV cefepime course on 08/03 -- Seen by ID and urology. Recommendations noted. --Plan to continue Hanna catheter as recommended by urology with monthly changes, last changed 07/24 --Continue Flomax, finasteride Patient has new leukocytosis yesterday which is improved today. Infectious work-up negative so far. Repeat lactate and Pro-Oswaldo is negative which is reassuring. Chest x-ray negative. Repeat blood culture is pending. No fever. Will monitor off of antibiotics for now. Consider if spikes a fever [facility]--POA in the setting of Sepsis Metabolic encephalopathy --CT Head:No acute intracranial hemorrhage, midline shift, or mass effect. -- HbA1c 10.7 Mental status back to baseline CESAR/ATN- Likely from prerenal, sepsis. Creatinine was 3.2 on 07/24 which is improved and now plateaued at 1.7 which might be new baseline. Will monitor renal function, avoid nephrotoxic's. Will need follow-up with nephrology upon discharge Atrial Fibrillation in RVR In the setting of sepsis Required cardioversion in ICU as per record Required IV Amiodarone which has since been discontinued - Currently in sinus -On metoprolol and Eliquis DM II Last HbA1c 10.7 Hold p.o. medications Continue insulin per protocol-glycemic pharmacist manage Chronic HFpEF Severe Aortic Stenosis Daily weights/strict intake and output recent echo: 04/2023 EF 50-55%, moderate concentric LVH, moderate to severe aortic stenosis, moderate mitral calcification, RV normal in size and function Plan to resume diuretics as able Monitor volume status which is currently stable DVT Px:Eliquis CODE STATUS- DNI DNR Disposition-pending infection work-up with new leukocytosis. Plan is for discharge with his daughter once medically stable. Admission and Anticipated Discharge Date Admission Date: July 24, 2023 Subjective Patient was seen and examined at bedside. He is very hard of hearing and communicated with writing. He denies any issues. He feels fine. No fever, chills, chest pain or shortness of breath no nausea vomiting Review of Systems Review of Systems: All systems reviewed & are unremarkable except as noted in Subjective Physical Exam Physical Exam: General: Lying comfortably in bed, not in distress, on room air HEENT: ARNOLDO, MMM Chest: Clear present bilaterally CVS: Regular rate and rhythm, normal heart sounds, + murmur Abdomen: Soft, non tender, not distended, normal bowel sounds Neuro: Awake, alert, very hard of hearing Extremities: No cyanosis, clubbing, trace leg edema. Some old scabs : Hanna with clear urine Results & Data Results & Data Vital Signs (Past 12 Hours) Vital Signs Temp Pulse Resp BP Pulse Ox O2 Del Method 08/15/23 07:26 36.9 C 69 20 117/63 96 Room Air Laboratory Results Short CBC 08/15/23 Range/Units 07:05 WBC 12.32 H (4.8-10.8) K/ul Hgb 10.8 L (14.0-18.0) g/dl Hct 32.7 L (42.0-52.0) % Plt Count 280 (130-400) K/uL BMP 08/15/23 07:05 Sodium 134 L Potassium 4.2 Chloride 99 Carbon Dioxide 30 BUN 48 H Creatinine 1.64 H Glucose 99 Calcium 9.1 Medications Administered Current Inpatient Medications Acetaminophen (Acetaminophen 325 Mg Tab) 650 mg PO QID PRN PRN Reason: pain/fever Stop: 08/24/23 23:06 Albuterol (Albuterol Hfa 8 Gm Inhaler) 2 puffs INH QID PRN PRN Reason: sob/wheezing Stop: 09/11/23 16:59 Apixaban (Apixaban 5 Mg Tablet) 5 mg PO BID [facility] Stop: 08/25/23 20:59 Last Admin: 08/15/23 07:44 Dose: 5 mg Dextrose (Dextrose 50% 50 Ml Syringe) 25 - 50 ml IV UD PRN; Protocol PRN Reason: Hypoglycemia Protocol Stop: 08/23/23 15:25 Finasteride (Finasteride 5 Mg Tab) 5 mg PO DAILY [facility] Stop: 09/05/23 08:59 Last Admin: 08/15/23 07:44 Dose: 5 mg Furosemide (Furosemide Inj 20 Mg/2 Ml Vial) 20 mg IV Q8H [facility] Stop: 08/27/23 11:59 Last Admin: 07/29/23 12:12 Dose: 20 mg Glucagon (Glucagon For Inj 1 Mg Vial) 1 mg SQ UD PRN; Protocol PRN Reason: Hypoglycemia Protocol Stop: 08/23/23 15:25 Glucose (Glucose 40% Gel 15 Gm Tube) 15 - 30 gm PO UD PRN; Protocol PRN Reason: Hypoglycemia Protocol Stop: 08/23/23 15:25 Glucose (Glucose 10 Tab/Tube) 4 - 8 tab PO UD PRN; Protocol PRN Reason: Hypoglycemia Treatment Stop: 08/23/23 15:25 Insulin Aspart (Insulin Aspart Per Unit Charge) 0 units SC ACHS [facility] Stop: 09/13/23 11:59 Last Admin: 08/15/23 12:28 Dose: 221 units Insulin Glargine (Lantus Per Unit Charge) 22 units SC DAILY [facility]; Protocol Stop: 09/03/23 08:59 Last Admin: 08/15/23 08:35 Dose: 22 units Metoprolol Tartrate (Metoprolol Tartrate 25 Mg Tab) 25 mg PO BID [facility] Stop: 08/24/23 08:59 Last Admin: 08/15/23 07:44 Dose: 25 mg Metoprolol Tartrate (Metoprolol Tartrate 1 Mg/Ml Vial) 5 mg IV Q4 PRN PRN Reason: HR>120 Stop: 08/24/23 11:59 Miscellaneous (Carbohydrates For Hypoglycemia ) 15 - 30 gm PO UD PRN PRN Reason: Hypoglycemia Protocol Stop: 08/23/23 15:25 Last Admin: 08/11/23 16:50 Dose: 15 gm Miscellaneous Information (Pharmacy Glycemic Mgmt Consult) 1 each N/A UD PRN PRN Reason: Consult Stop: 08/23/23 19:41 Pantoprazole Sodium (Pantoprazole 40 Mg Tab) 40 mg PO DAILY [facility] Stop: 08/24/23 08:59 Last Admin: 08/15/23 07:44 Dose: 40 mg Tamsulosin HCl (Tamsulosin Hcl 0.4 Mg Cap) 0.4 mg PO DAILY [facility] Stop: 09/05/23 08:59 Last Admin: 08/15/23 07:44 Dose: 0.4 mg Tramadol HCl (Tramadol Hcl 50 Mg Tablet) 25 - 50 mg PO Q4H PRN PRN Reason: Pain Stop: 08/25/23 05:21 Last Admin: 08/02/23 23:22 Dose: 50 mg
[2023-08-15] MEDS: CARBOHYDRATES FOR HYPOGLYCEMIA PO PRN ×2 (16:43→17:02)
[2023-08-16 07:47] LABS: Hematocrit (blood only) 30.9 % (42.0-52.0); Hemoglobin 10.2 g/dl (14.0-18.0); Mean Corpuscular Hemoglobin 28.3 pg (25.0-34.0); Mean Corpuscular Volume 85.8 fL (80.0-100.0); Mean Platelet Volume 10.4 fL (9.4-12.4); Platelet Count 258 K/uL (130-400); RDW Coefficient of Variation 13.4 % (11.5-14.5); RDW Standard Deviation 41.8 fL (36.4-46.3); White Blood Count 8.55 K/ul (4.8-10.8)
[2023-08-16] MEDS: PANTOprazole 40 MG TAB PO SCH (08:31)
[2023-08-16] MEDS: FINASTERIDE 5 MG TAB PO SCH (08:31)
[2023-08-16] MEDS: APIXABAN 5 MG TABLET PO SCH ×2 (08:31→20:33)
[2023-08-16] MEDS: METOPROLOL TARTRATE 25 MG TAB PO SCH ×2 (08:31→20:33)
[2023-08-16] MEDS: TAMSULOSIN HCL 0.4 MG CAP PO SCH (08:31)
[2023-08-16] MEDS: LANTUS PER UNIT CHARGE SC SCH (08:44)
[2023-08-16] MEDS: INSULIN ASPART PER UNIT CHARGE SC SCH ×4 (08:44→20:56)
--- NOTE | 2023-08-16 11:38 | Hospitalist Progress Note ---
Date of Service August 16, 2023 Assessment & Plan (1) DKA (diabetic ketoacidosis): (2) High anion gap metabolic acidosis: (3) Metabolic encephalopathy: (4) Paroxysmal atrial fibrillation: (5) CESAR (acute kidney injury): (6) Elevated troponin: (7) Acute electrocardiogram changes: (8) Chronic heart failure with preserved ejection fraction (HFpEF): (9) Severe aortic stenosis: Plan Patient is Critically ill 77-year-old male who has a significant past medical history of medication noncompliance, T2DM, PAF anticoagulated on Eliquis, chronic HFpEF, moderate to severe aortic stenosis, HTN, HLD and BPH who presents to ED via EMS secondary to altered mental status. Sepsis secondary to Serratia bacteremia with UTI related to indwelling Hanna catheter-resolved with IV antibiotics completed 08/03 High anion gap metabolic acidosis-resolved H/O BPH/obstructive uropathy --CT ABD:Wall thickening of the urinary bladder with indwelling Hanna catheter. Correlate for UTI. Hepatic steatosis. Sludge in the gallbladder. No hydronephrosis or nephrolithiasis. Mild fullness of the bilateral renal collecting systems. Diverticulosis, without acute diverticulitis. No small bowel obstruction. No free intraperitoneal air . -- Blood and urine culture grew Serratia marcescens -- Repeat blood cultures negative --Hanna catheter was exchanged while in ED per record --Completed IV cefepime course on 08/03 -- Seen by ID and urology. Recommendations noted. --Plan to continue Hanna catheter as recommended by urology with monthly changes, last changed 07/24 --Continue Flomax, finasteride Leukocytosis has resolved spontaneously. Infectious work-up has been negative. [facility]--POA in the setting of Sepsis Metabolic encephalopathy --CT Head:No acute intracranial hemorrhage, midline shift, or mass effect. -- HbA1c 10.7 Mental status back to baseline CESAR/ATN- Likely from prerenal, sepsis. Creatinine was 3.2 on 07/24 which is improved and now plateaued at 1.7 which might be new baseline. Will monitor renal function, avoid nephrotoxic's. Will need follow-up with nephrology upon discharge Atrial Fibrillation in RVR In the setting of sepsis Required cardioversion in ICU as per record Required IV Amiodarone which has since been discontinued - Currently in sinus -On metoprolol and Eliquis DM II Last HbA1c 10.7 Hold p.o. medications Continue insulin per protocol-glycemic pharmacist manage Chronic HFpEF Severe Aortic Stenosis Daily weights/strict intake and output recent echo: 04/2023 EF 50-55%, moderate concentric LVH, moderate to severe aortic stenosis, moderate mitral calcification, RV normal in size and function Plan to resume diuretics as able Monitor volume status which is currently stable DVT Px:Eliquis CODE STATUS- DNI DNR Disposition-logistic issues limiting discharge. Patient states he will think about going to personal-detention. Change Hanna prior to discharge. Admission and Anticipated Discharge Date Admission Date: July 24, 2023 Subjective Patient was seen and examined at bedside. He is very hard of hearing and was communicated by writing on paper. He feels fine. He feels ready to go but does not want to go to personal detention.He said he will think about going to personal-detention. Review of Systems Review of Systems: All systems reviewed & are unremarkable except as noted in Subjective Physical Exam Physical Exam: General: Lying comfortably in bed, not in distress, on room air HEENT: [place], MMM Chest: Clear present bilaterally CVS: Regular rate and rhythm, normal heart sounds, + murmur Abdomen: Soft, non tender, not distended, normal bowel sounds Neuro: Awake, alert, very hard of hearing Extremities: No cyanosis, clubbing, trace leg edema. Some old scabs : Hanna with clear urine Results & Data Results & Data Vital Signs (Past 12 Hours) Vital Signs Temp Pulse Resp BP Pulse Ox O2 Del Method 08/16/23 08:00 36.6 C 67 18 131/71 95 Room Air Laboratory Results Short CBC 08/16/23 Range/Units 07:04 WBC 8.55 (4.8-10.8) K/ul Hgb 10.2 L (14.0-18.0) g/dl Hct 30.9 L (42.0-52.0) % Plt Count 258 (130-400) K/uL Medications Administered Current Inpatient Medications Acetaminophen (Acetaminophen 325 Mg Tab) 650 mg PO QID PRN PRN Reason: pain/fever Stop: 08/24/23 23:06 Albuterol (Albuterol Hfa 8 Gm Inhaler) 2 puffs INH QID PRN PRN Reason: sob/wheezing Stop: 09/11/23 16:59 Apixaban (Apixaban 5 Mg Tablet) 5 mg PO BID [facility] Stop: 08/25/23 20:59 Last Admin: 08/16/23 08:31 Dose: 5 mg Dextrose (Dextrose 50% 50 Ml Syringe) 25 - 50 ml IV UD PRN; Protocol PRN Reason: Hypoglycemia Protocol Stop: 08/23/23 15:25 Finasteride (Finasteride 5 Mg Tab) 5 mg PO DAILY [facility] Stop: 09/05/23 08:59 Last Admin: 08/16/23 08:31 Dose: 5 mg Furosemide (Furosemide Inj 20 Mg/2 Ml Vial) 20 mg IV Q8H [facility] Stop: 08/27/23 11:59 Last Admin: 07/29/23 12:12 Dose: 20 mg Glucagon (Glucagon For Inj 1 Mg Vial) 1 mg SQ UD PRN; Protocol PRN Reason: Hypoglycemia Protocol Stop: 08/23/23 15:25 Glucose (Glucose 40% Gel 15 Gm Tube) 15 - 30 gm PO UD PRN; Protocol PRN Reason: Hypoglycemia Protocol Stop: 08/23/23 15:25 Glucose (Glucose 10 Tab/Tube) 4 - 8 tab PO UD PRN; Protocol PRN Reason: Hypoglycemia Treatment Stop: 08/23/23 15:25 Insulin Aspart (Insulin Aspart Per Unit Charge) 0 units SC 1130,1630,2100 [facility] Stop: 09/15/23 11:29 Insulin Aspart (Insulin Aspart Per Unit Charge) 0 units SC DAILY@0730 [facility] Stop: 09/16/23 07:29 Insulin Glargine (Lantus Per Unit Charge) 22 units SC DAILY [facility]; Protocol Stop: 09/03/23 08:59 Last Admin: 08/16/23 08:44 Dose: 22 units Metoprolol Tartrate (Metoprolol Tartrate 25 Mg Tab) 25 mg PO BID [facility] Stop: 08/24/23 08:59 Last Admin: 08/16/23 08:31 Dose: 25 mg Metoprolol Tartrate (Metoprolol Tartrate 1 Mg/Ml Vial) 5 mg IV Q4 PRN PRN Reason: HR>120 Stop: 08/24/23 11:59 Miscellaneous (Carbohydrates For Hypoglycemia ) 15 - 30 gm PO UD PRN PRN Reason: Hypoglycemia Protocol Stop: 08/23/23 15:25 Last Admin: 08/15/23 17:02 Dose: 15 gm Miscellaneous Information (Pharmacy Glycemic Mgmt Consult) 1 each N/A UD PRN PRN Reason: Consult Stop: 08/23/23 19:41 Pantoprazole Sodium (Pantoprazole 40 Mg Tab) 40 mg PO DAILY [facility] Stop: 08/24/23 08:59 Last Admin: 08/16/23 08:31 Dose: 40 mg Tamsulosin HCl (Tamsulosin Hcl 0.4 Mg Cap) 0.4 mg PO DAILY [facility] Stop: 09/05/23 08:59 Last Admin: 08/16/23 08:31 Dose: 0.4 mg Tramadol HCl (Tramadol Hcl 50 Mg Tablet) 25 - 50 mg PO Q4H PRN PRN Reason: Pain Stop: 08/25/23 05:21 Last Admin: 08/02/23 23:22 Dose: 50 mg
--- NOTE | 2023-08-16 14:55 | Pharmacy Report ---
Pharmacy Glycemic Short Note 2 - Date of Service August 16, 2023 - Glycemic Short BSG Results (Last 24 hours): 08/15/23 08/15/23 08/15/23 16:37 16:38 16:59 POC Glucose 62 L* 66 L* 68 L* 08/15/23 08/15/23 08/16/23 17:25 20:41 08:32 POC Glucose 117 H 112 H 144 H 08/16/23 12:06 POC Glucose 79 OUTPATIENT ANTIDIABETIC REGIMEN: * Xultophy 20 units SC HS * Novolog 5 units SC AC * HbA1c: 10.7% (04/29/23) ASSESSMENT: 08/16: * Patient received total 46 units of insulin yesterday; 22 units basal and 24 units bolus. * BSGs yesterday were 098-191-52-112 mg/dl. Patient was hypoglycemic at dinner time most likely due to the 12 units of insulin he received at lunch. * Novolog parameters for lunch, dinner and HS were loosened to prevent hypoglycemia. * Fasting BSG = 144 mg/dl today. Basal insulin continued the same. 08/14: * Selvin received 33 units of insulin yesterday of which 22 were basal * Fasting BSG within goal range, continue basal regimen * Lunchtime BSG elevated, added carbohydrate coverage again with lunch * No additional stressor noted at this time. 08/12: * Patient received 38 units of insulin yesterday, 26 units basal + 12 units bolus. BSGs were 826-779-81-176 mg/dL. * Patient had a hypoglycemic event at dinner last night. Second day in a row with hypoglycemia. Fortunately, patient was asymptomatic but did require 15 g of carbs in the form of orange juice to correct BSG to 92 mg/dL. * Have significantly loosened Novolog parameters since Thursday. Will remove carb coverage with lunch meal in hopes of prevent any further hypoglycemia. * Fasting BSG 120 mg/dL this AM. No change to basal. 08/11: * Selvin received 45 units of insulin yesterday, 26 units basal + 19 units bolus. BSGs were 246-800-366-59 mg/dL. * Patient had a hypoglycemic event at bedtime last night. Thankfully, he was asymptomatic. Bolus insulin was held at this time. Patient received 15 g of carbs in the form of orange juice. * Fasting BSG was 164 mg/dL this morning. Believe this is related to treatment of hypoglycemia before bed. I did loosen carb ratio this morning. Lunchtime BSG trended down to 129 mg/dL. Will further loosen carb ratio and loosen correction factor to prevent any further instances of hypoglycemia. No changes to basal. 08/10: * Patient received 47 units of insulin yesterday, 30 units basal + 17 units bolus. BSGs were: 316-05-52-173 mg/dL. * Given borderline low blood sugars yesterday, plan to reduce insulin regimen further today. * Novolog was loosened significantly yesterday so will continue with this to see how postprandials respond. * Lantus will be reduced by ~15% today given fasting BSG this AM of 103 mg/dL. 08/08: * Selvin received 59 units of insulin yesterday of which 32 were basal * Slight reduction (5%) in basal insulin based on yesterday's fasting BSG, will continue this dose since fasting BSG was in goal range today. * Lunchtime BSG elevated yesterday- tightened breakfast Novolog parameters to values in between 08/05 (which caused lunchtime low) and 08/06 (which led to hyperglycemia. * Hypoglycemia at dinnertime yesterday- likely due to overcorrection of lunchtime hyperglycemia- loosened lunch, dinner, and bedtime Novolog correction factor * No additional stressor noted at this time. 08/06: * SCr 1.87 this morning, down from 2.37 * Fasting BSG 90 mg/dL on labs, 103 mg/dL on POC BSG. Will reduce lantus to 32 units today (35 yesterday) * Novolog loosened yesterday with BSG 74 mg/dL at lunchtime; trended up rest of day; will tighten back to previous carb ratio * Loosened breakfast for this morning given low at lunch yesterday- monitor 08/04: * Stressors stable - ordered T2DM diet * AM fasting BSG above goal range for many days (with the exception of 08/02, but BSG trended up overnight that night). Will increase Lantus * Dinnertime BSG below goal yesterday. Will loosen Novolog in the latter part of the day, particularly at lunch, to help prevent hypoglycemia. 08/03: * BSGs yesterday 704-664-49-258 mg/dL. Received 30 units of basal and 44 units of bolus yesterday. * Breakfast insulin given ~0900 which may have contributed to high BSG at lunch and subsequent low with dinner. Will loosen CR/CF with lunch today, however as patient was also below goal at dinner on 08/01.- monitor * Fasting 190 mg/dL this morning- monitor; consider increase in basal if trend continues (125 mg/dL yesterday). 07/31: * BSGs elevated the last 24h: 724-735-989-229mg/dL. Received 23 units of basal and 42 units of bolus insulin yesterday. * Further titrate basal, 30 units. Novolog carb ratio tightened at breakfast and lunch. Continue with looser parameters at dinner and HS. 07/30: * BSGs 012-91-702-252mg/dL the last 24h. Received 20 units of basal and 42 units of bolus insulin yesterday. * Other stressors stable. * Titrate basal given elevated fasting to 23 units. Novolog further tightened at breakfast. Will loosen lunch, dinner, HS parameters given tendency to go low at night (continue max 15 units) 07/29: * BSGs [phone]/dl the last 24h. Received no basal and 38 units of bolus insulin yesterday. * Stressors stable. * Given low BSGs yesterday at dinner, Lantus was held. Resumed this AM at 20 units as fasting was 191mg/dL. Novolog loosened back to 20/6 today and again BSG is high at lunch. Will use a tighter carb ratio tomorrow at breakfast with looser ratio at all other times (max 15 units at lunch, dinner and HS). 07/28: * BSGs 450-423-189-229mg/dL the last 24h. Received 15 units of basal and 25 units of bolus insulin yesterday. * Tolerating diet, continues on cefepime. * Increase basal to 20 units given elevated fasting. Tighten novolog for improved prandial coverage and improved PO intake. 07/27: * BSGs [phone]/dL the last 24h. Received 12 units of basal and 11 units of bolus insulin yesterday. * Diet reinitiated and continues on antibiotics. * Increase basal to 15 units at HS given slightly elevated fasting. Novolog parameters tightened with advancement of diet. 07/26: * Selvin received 59 units of insulin yesterday, 40 units basal + 19 units bolus. BSGs were: 628-379-644-302-200-238 mg/dL. * Fasting BSG was below goal at 84 mg/dL this AM. Will reduce basal significantly given NPO and dextrose discontinued. Will loosen Novolog as well while NPO. 07/25: * 77 yo M admitted on 07/24/23 secondary to HHS/CESAR/Afib/Resp failure. Pharmacy has been consulted to assist with inpatient glycemic management. Patient is a Type 2 diabetic as an outpatient. Please refer to outpatient regimen and most recent HbA1c above. * BSG was 768 mg/dL upon arrival yesterday. Started on an insulin drip. Received ~ 62 units via drip over a 12 hour period. * Will give a dose of basal insulin this morning in hopes of transitioning. Sql Application Developer okay with transitioning today. * RN shut insulin drip off right after Lantus administration without overlap due to compatibility issues. Discontinued dextrose and potassium containing fluids. Sql Application Developer would like 1/2 NS running at 75 mL/hr. * Remains NPO. No enteral nutrition yet. Cefepime for infection. Amiodarone and Heparin drips running. * Will start Novolog q4 for time being. PLAN FOR INPATIENT GLYCEMIC CONTROL: * Basal insulin * Lantus 22 units SC daily * Bolus insulin * NovoLog per scale ACHS * Goal Range: Low 110 mg/dL - High 140 mg/dL * Correction Factor: 40 mg/dL/unit for breakfast; 45 mg/dl/unit for lunch, dinner and Hs * Nutritional / Prandial insulin per carb ratio of 1 unit per 9 grams CHO consumed for breakfast; 1:15 ratio for lunch, dinner and HS
[2023-08-16] MEDS: traMADol HCL 50 MG TABLET PO PRN (21:41)
[2023-08-17 07:25] LABS: Hemoglobin 10.6 g/dl (14.0-18.0); Mean Corpuscular Hemoglobin 28.3 pg (25.0-34.0); Mean Corpuscular Hgb Conc 33.1 g/dL (32.0-36.0); Mean Corpuscular Volume 85.3 fL (80.0-100.0); Mean Platelet Volume 10.3 fL (9.4-12.4); Platelet Count 264 K/uL (130-400); RDW Coefficient of Variation 13.5 % (11.5-14.5); RDW Standard Deviation 42.2 fL (36.4-46.3); Red Blood Count 3.75 M/uL (4.70-6.10); White Blood Count 9.62 K/ul (4.8-10.8)
[2023-08-17 07:29] LABS: BUN Creatinine Ratio 32.3 (10-20); Calcium 8.8 mg/dl (8.6-10.3); Creatinine Clr Calc Pharmacy 35.3 ml/min; Est GFR (African American) 44.7 ml/min; Est GFR (Non-African American) 38.6 ml/min
[2023-08-17] MEDS: TAMSULOSIN HCL 0.4 MG CAP PO SCH (08:38)
[2023-08-17] MEDS: APIXABAN 5 MG TABLET PO SCH ×2 (08:38→21:33)
[2023-08-17] MEDS: FINASTERIDE 5 MG TAB PO SCH (08:38)
[2023-08-17] MEDS: PANTOprazole 40 MG TAB PO SCH (08:38)
[2023-08-17] MEDS: METOPROLOL TARTRATE 25 MG TAB PO SCH ×2 (08:38→21:34)
[2023-08-17] MEDS: LANTUS PER UNIT CHARGE SC SCH (08:42)
[2023-08-17] MEDS: INSULIN ASPART PER UNIT CHARGE SC SCH ×4 (08:43→21:33)
--- NOTE | 2023-08-17 09:48 | Hospitalist Progress Note ---
Date of Service August 17, 2023 Assessment & Plan (1) DKA (diabetic ketoacidosis): (2) High anion gap metabolic acidosis: (3) Metabolic encephalopathy: (4) Paroxysmal atrial fibrillation: (5) CESAR (acute kidney injury): (6) Elevated troponin: (7) Acute electrocardiogram changes: (8) Chronic heart failure with preserved ejection fraction (HFpEF): (9) Severe aortic stenosis: Plan Patient is a 77-year-old male who has a significant past medical history of medication noncompliance, T2DM, PAF anticoagulated on Eliquis, chronic HFpEF, moderate to severe aortic stenosis, HTN, HLD and BPH who presented to ED via EMS secondary to altered mental status. Complex social situation for discharge. Sepsis secondary to Serratia bacteremia with UTI related to indwelling Hanna catheter-resolved with IV antibiotics completed 08/03 High anion gap metabolic acidosis-resolved H/O BPH/obstructive uropathy --CT ABD:Wall thickening of the urinary bladder with indwelling Hanna catheter. Correlate for UTI. Hepatic steatosis. Sludge in the gallbladder. No hydronephrosis or nephrolithiasis. Mild fullness of the bilateral renal collecting systems. Diverticulosis, without acute diverticulitis. No small bowel obstruction. No free intraperitoneal air . -- Blood and urine culture grew Serratia marcescens -- Repeat blood cultures negative --Hanna catheter was exchanged while in ED per record --Completed IV cefepime course on 08/03 -- Seen by ID and urology. Recommendations noted. --Plan to continue Hanna catheter as recommended by urology with monthly changes, last changed 08/17 --Continue Flomax, finasteride Leukocytosis has resolved spontaneously. Infectious work-up has been negative. [facility]--POA in the setting of Sepsis Metabolic encephalopathy --CT Head:No acute intracranial hemorrhage, midline shift, or mass effect. -- HbA1c 10.7 Mental status back to baseline CESAR/ATN- Likely from prerenal, sepsis. Creatinine was 3.2 on 07/24 which is improved and now plateaued at 1.7 which might be new baseline. Will monitor renal function, avoid nephrotoxic meds. Will need follow-up with nephrology upon discharge Atrial Fibrillation in RVR In the setting of sepsis Required cardioversion in ICU as per record Required IV Amiodarone which has since been discontinued - Currently in sinus -On metoprolol and Eliquis DM II Last HbA1c 10.7 Hold p.o. medications Continue insulin per protocol-glycemic pharmacist manage Chronic HFpEF Severe Aortic Stenosis Daily weights/strict intake and output recent echo: 04/2023 EF 50-55%, moderate concentric LVH, moderate to severe aortic stenosis, moderate mitral calcification, RV normal in size and function Plan to resume diuretics as able Monitor volume status which is currently stable DVT Px:Eliquis CODE STATUS- DNI DNR Disposition-logistic issues limiting discharge. Hanna changed on 08/18, declining to take him on 08/18, stated dispo plans fell through. Admission and Anticipated Discharge Date Admission Date: July 24, 2023 Subjective Pt seen, difficulty hearing, difficult to communicate. Was stable for discharge and was contacted by this provider. asking if pt has a place to go, asking if he can go to a penitentiary. notes that her plans to take him over the weekend fell through and not able to take him. Review of Systems Review of Systems: All systems reviewed & are unremarkable except as noted in Subjective Physical Exam Physical Exam: General: Alert, oriented Skin: No noted rashes or bruises Psych: Appropriate mood and affect Neuro: extreme difficulty hearing HEENT: [place]/AT Chest: Nontender to palpation. CV: RRR, murmur appreciated Resp: Breath sounds clear bilaterally, no increased effort of breathing. Abdomen: Soft, nontender Results & Data Results & Data Vital Signs (Past 12 Hours) Vital Signs Temp Pulse Resp BP Pulse Ox O2 Del Method 08/17/23 07:45 Room Air 08/17/23 06:56 36.6 C 64 16 119/76 95 Room Air
--- NOTE | 2023-08-17 14:24 | Pharmacy Report ---
Pharmacy Glycemic Short Note 2 - Date of Service August 17, 2023 - Glycemic Short BSG Results (Last 24 hours): 08/16/23 08/16/23 08/17/23 17:09 20:45 06:29 Glucose 137 H POC Glucose 141 H 126 H 08/17/23 08/17/23 07:35 11:44 Glucose POC Glucose 118 H 184 H OUTPATIENT ANTIDIABETIC REGIMEN: * Xultophy 20 units SC HS * Novolog 5 units SC AC * HbA1c: 10.7% (04/29/23) ASSESSMENT: 08/17: * Patient received total 36 units of insulin yesterday; 22 units of basal and 14 units of correctional/prandial * BSGs yesterday [phone] mg/dL; continue current parameters, lunch 184 mg/dL today * Fasting 118 mg/dL- continue current basal 08/16: * Patient received total 46 units of insulin yesterday; 22 units basal and 24 units bolus. * BSGs yesterday were [phone] mg/dl. Patient was hypoglycemic at dinner time most likely due to the 12 units of insulin he received at lunch. * Novolog parameters for lunch, dinner and HS were loosened to prevent hypoglycemia. * Fasting BSG = 144 mg/dl today. Basal insulin continued the same. 08/14: * Selvin received 33 units of insulin yesterday of which 22 were basal * Fasting BSG within goal range, continue basal regimen * Lunchtime BSG elevated, added carbohydrate coverage again with lunch * No additional stressor noted at this time. 08/12: * Patient received 38 units of insulin yesterday, 26 units basal + 12 units bolus. BSGs were [phone] mg/dL. * Patient had a hypoglycemic event at dinner last night. Second day in a row with hypoglycemia. Fortunately, patient was asymptomatic but did require 15 g of carbs in the form of orange juice to correct BSG to 92 mg/dL. * Have significantly loosened Novolog parameters since Thursday. Will remove carb coverage with lunch meal in hopes of prevent any further hypoglycemia. * Fasting BSG 120 mg/dL this AM. No change to basal. 08/11: * Selvin received 45 units of insulin yesterday, 26 units basal + 19 units bolus. BSGs were [phone] mg/dL. * Patient had a hypoglycemic event at bedtime last night. Thankfully, he was asymptomatic. Bolus insulin was held at this time. Patient received 15 g of carbs in the form of orange juice. * Fasting BSG was 164 mg/dL this morning. Believe this is related to treatment of hypoglycemia before bed. I did loosen carb ratio this morning. Lunchtime BSG trended down to 129 mg/dL. Will further loosen carb ratio and loosen correction factor to prevent any further instances of hypoglycemia. No changes to basal. 08/10: * Patient received 47 units of insulin yesterday, 30 units basal + 17 units bolus. BSGs were: [phone] mg/dL. * Given borderline low blood sugars yesterday, plan to reduce insulin regimen further today. * Novolog was loosened significantly yesterday so will continue with this to see how postprandials respond. * Lantus will be reduced by ~15% today given fasting BSG this AM of 103 mg/dL. 08/08: * Selvin received 59 units of insulin yesterday of which 32 were basal * Slight reduction (5%) in basal insulin based on yesterday's fasting BSG, will continue this dose since fasting BSG was in goal range today. * Lunchtime BSG elevated yesterday- tightened breakfast Novolog parameters to values in between 08/05 (which caused lunchtime low) and 08/06 (which led to hyperglycemia. * Hypoglycemia at dinnertime yesterday- likely due to overcorrection of lunchtime hyperglycemia- loosened lunch, dinner, and bedtime Novolog correct ion factor * No additional stressor noted at this time. 08/06: * SCr 1.87 this morning, down from 2.37 * Fasting BSG 90 mg/dL on labs, 103 mg/dL on POC BSG. Will reduce lantus to 32 units today (35 yesterday) * Novolog loosened yesterday with BSG 74 mg/dL at lunchtime; trended up rest of day; will tighten back to previous carb ratio * Loosened breakfast for this morning given low at lunch yesterday- monitor 08/04: * Stressors stable - ordered T2DM diet * AM fasting BSG above goal range for many days (with the exception of 08/02, but BSG trended up overnight that night). Will increase Lantus * Dinnertime BSG below goal yesterday. Will loosen Novolog in the latter part of the day, particularly at lunch, to help prevent hypoglycemia. 08/03: * BSGs yesterday [phone] mg/dL. Received 30 units of basal and 44 units of bolus yesterday. * Breakfast insulin given ~0900 which may have contributed to high BSG at lunch and subsequent low with dinner. Will loosen CR/CF with lunch today, however as patient was also below goal at dinner on 08/01.- monitor * Fasting 190 mg/dL this morning- monitor; consider increase in basal if trend continues (125 mg/dL yesterday). 07/31: * BSGs elevated the last 24h: [phone]/dL. Received 23 units of basal and 42 units of bolus insulin yesterday. * Further titrate basal, 30 units. Novolog carb ratio tightened at breakfast and lunch. Continue with looser parameters at dinner and HS. 07/30: * BSGs [phone]/dL the last 24h. Received 20 units of basal and 42 units of bolus insulin yesterday. * Other stressors stable. * Titrate basal given elevated fasting to 23 units. Novolog further tightened at breakfast. Will loosen lunch, dinner, HS parameters given tendency to go low at night (continue max 15 units) 07/29: * BSGs [phone]/dl the last 24h. Received no basal and 38 units of bolus insulin yesterday. * Stressors stable. * Given low BSGs yesterday at dinner, Lantus was held. Resumed this AM at 20 units as fasting was 191mg/dL. Novolog loosened back to 20/6 today and again BSG is high at lunch. Will use a tighter carb ratio tomorrow at breakfast with looser ratio at all other times (max 15 units at lunch, dinner and HS). 07/28: * BSGs [phone]/dL the last 24h. Received 15 units of basal and 25 units of bolus insulin yesterday. * Tolerating diet, continues on cefepime. * Increase basal to 20 units given elevated fasting. Tighten novolog for improved prandial coverage and improved PO intake. 07/27: * BSGs [phone]/dL the last 24h. Received 12 units of basal and 11 units of bolus insulin yesterday. * Diet reinitiated and continues on antibiotics. * Increase basal to 15 units at HS given slightly elevated fasting. Novolog parameters tightened with advancement of diet. 07/26: * Selvin received 59 units of insulin yesterday, 40 units basal + 19 units bolus. BSGs were: [phone] mg/dL. * Fasting BSG was below goal at 84 mg/dL this AM. Will reduce basal significantly given NPO and dextrose discontinued. Will loosen Novolog as well while NPO. 07/25: * 77 yo M admitted on 07/24/23 secondary to HHS/CESAR/Afib/Resp failure. Pharmacy has been consulted to assist with inpatient glycemic management. Patient is a Type 2 diabetic as an outpatient. Please refer to outpatient regimen and most recent HbA1c above. * BSG was 768 mg/dL upon arrival yesterday. Started on an insulin drip. Received ~ 62 units via drip over a 12 hour period. * Will give a dose of basal insulin this morning in hopes of transitioning. Shipping Order Clerk okay with transitioning today. * RN shut insulin drip off right after Lantus administration without overlap due to compatibility issues. Discontinued dextrose and potassium containing fluids. Shipping Order Clerk would like 1/2 NS running at 75 mL/hr. * Remains NPO. No enteral nutrition yet. Cefepime for infection. Amiodarone and Heparin drips running. * Will start Novolog q4 for time being. PLAN FOR INPATIENT GLYCEMIC CONTROL: * Basal insulin * Lantus 22 units SC daily * Bolus insulin * NovoLog per scale ACHS * Goal Range: Low 110 mg/dL - High 140 mg/dL * Correction Factor: 40 mg/dL/unit for breakfast; 45 mg/dl/unit for lunch, dinner and Hs * Nutritional / Prandial insulin per carb ratio of 1 unit per 9 grams CHO consumed for breakfast; 1:15 ratio for lunch, dinner and HS
[2023-08-18] MEDS: traMADol HCL 50 MG TABLET PO PRN ×2 (00:28→11:05)
[2023-08-18 07:37] LABS: Basophils # (auto) 0.05 K/uL (0.00-0.20); Basophils % (auto) 0.5 %; Eosinophils # (auto) 0.29 K/uL (0.00-0.50); Eosinophils % (auto) 3.1 %; Hematocrit (blood only) 31.7 % (42.0-52.0); Hemoglobin 10.7 g/dl (14.0-18.0); Immature Granulocytes # (auto) 0.03 K/uL (0.01-0.20); Immature Granulocytes % (auto) 0.3 %; Lymphocytes # (auto) 2.66 K/uL (1.20-3.40); Lymphocytes % (auto) 28.4 %; Mean Corpuscular Hemoglobin 28.7 pg (25.0-34.0); Mean Corpuscular Hgb Conc 33.8 g/dL (32.0-36.0); Mean Platelet Volume 10.1 fL (9.4-12.4); Monocytes # (auto) 1.17 K/uL (0.11-0.59); Monocytes % (auto) 12.5 %; Neutrophils # (auto) 5.15 K/uL (1.40-6.50); Neutrophils % (auto) 55.2 %; Platelet Count 279 K/uL (130-400); RDW Coefficient of Variation 13.5 % (11.5-14.5); Red Blood Count 3.73 M/uL (4.70-6.10); White Blood Count 9.35 K/ul (4.8-10.8)
[2023-08-18 08:07] LABS: BUN Creatinine Ratio 30.5 (10-20); Calcium 8.9 mg/dl (8.6-10.3); Creatinine Clr Calc Pharmacy 33.9 ml/min; Est GFR (African American) 42.6 ml/min; Est GFR (Non-African American) 36.7 ml/min; Potassium 3.8 mmol/L (3.5-5.1)
[2023-08-18] MEDS: METOPROLOL TARTRATE 25 MG TAB PO SCH (08:46)
[2023-08-18] MEDS: FINASTERIDE 5 MG TAB PO SCH (08:46)
[2023-08-18] MEDS: APIXABAN 5 MG TABLET PO SCH (08:46)
[2023-08-18] MEDS: TAMSULOSIN HCL 0.4 MG CAP PO SCH (08:47)
[2023-08-18] MEDS: PANTOprazole 40 MG TAB PO SCH (08:47)
[2023-08-18] MEDS: LANTUS PER UNIT CHARGE SC SCH (08:55)
[2023-08-18] MEDS: INSULIN ASPART PER UNIT CHARGE SC SCH ×2 (08:55→13:54)
--- NOTE | 2023-08-18 12:35 | Discharge Summary ---
Discharge Summary Date of Service August 18, 2023 Notes For Next Care Provider Patient hospitalized for DKA/HHS, metabolic encephalopathy, bacteremia secondary to Serratia marcescens UTI in setting of indwelling Yee catheter. Patient with very poor social situation. Prior to hospitalization was living on a piece of property in a tent. Presented in severe sepsis with metabolic encephalopathy. He is being discharged to a hotel while figures out further arrangements. He will likely need outpatient case management involvement. He was treated with IV antibiotics and bacteremia has since cleared. He continues to have a Yee catheter in place with last exchange on 08/17/2023. He will need monthly urology follow-up for exchanged. This is due to obstructive uropathy. During hospitalization he did develop CESAR with initial creatinine above 3. Creatinine at discharge has been around 1.7. This may be new baseline, but he will need close nephrology follow-up. In regards to his T2DM he has poor control likely due to noncompliance. His A1c was 10.7. He initially required insulin drip and has been since titrated back to basal bolus dosing. We are increasing Lantus to 25 units at bedtime. His metformin has been discontinued secondary to renal function. Currently patient remains off Lasix as he has remained euvolemic and creatinine remains at baseline. He will need to be reevaluated if Lasix needs restarted. Medication Changes From Visit STOP TAKING: Lasix Metformin New Medications: Pantoprazole 40mg daily for stomach protection Changed Medications: Increase Lantus to 25 units at bedtime Continue taking all other medications Admission HPI Per Admitting Provider This is a 77-year-old male who has a significant past medical history of medication noncompliance, T2DM, PAF anticoagulated on Eliquis, chronic HFpEF, moderate to severe aortic stenosis, HTN, HLD and BPH who presents to ED via EMS secondary to altered mental status. Patient's is at bedside and helps elicit history although still very limited. Patient was last seen by her on 07/20 when she took him to urology appointment due to concern for possible Yee catheter not functioning. At that time his Yee catheter was functioning appropriately but he underwent Yee exchange at that time. She then dropped him back off to his, "tent." Patient and do not live together. lives with their daughter in an apartment and due to occupancy limit of 2 he is unable to stay there. She states that he currently lives in [place] on a piece of their property in a tent. There is a house there but does not have electricity or running water so therefore he stays in a tent. She is unsure if he has been compliant with his medications. Nobody heard from him since Thursday when his son went to check on him today he was confused and altered. EMS was then summoned. Of significance patient was recently hospitalized on 04/29-05/05. At that time he presented with weakness and blood sugars in the 400s along with urinary retention. Yee catheter was placed at that time. He was seen and evaluated by urology and found to have chronic bladder outlet obstruction and recommended continue Yee catheter placement and started on Flomax. He was also empirically treated for UTI although this cultures came back negative. His hospital course at that time was complicated with A-fib with RVR. He was also noted to have anaplasmosis and started on doxycycline. History is unable to be obtained from patient secondary to underlying confusion as well as a severe hearing impairment. Upon arrival EMS noted patient to have elevated heart rates into the 170s 180s. Adenosine was tried x2 without improvement. He received a 500 bolus of IV fluid with mild improvement in heart rates into the 150s. When patient arrived at ED he received further IV fluid as well as Lopressor 5 mg IV x1 which resulted in a spontaneous conversion back to normal sinus rhythm with normotension. He was found to have severe hyperglycemia, HHS, hyponatremia, concern for sepsis, elevated troponin with significant EKG changes, CESAR, lactic acidosis. In ED received 2 L of IV fluid, empirically was treated with IV cefepime and vancomycin and initiated on insulin bolus and drip. Admission Exam Per Admitting Provider on exam he is hard of hearing and just has general weakness. He is nonverbal and does not follow instructions. Mucous membranes are dry, pupils are round and equal bilaterally. Skin is warm and dry. Cardiac exam reveals S1-S2 without murmur with a regular rate and rhythm. Lungs are clear to auscultation throughout. Abdomen is soft there is tenderness in the right upper quadrant. Extremities are warm and well-perfused. He is confused limiting and neur omuscular exam but there does not appear to be any overt focal deficit outside of the confusion. Principal Dx & Hospital Course #1 = Principal Diagnosis (1) DKA (diabetic ketoacidosis): (2) High anion gap metabolic acidosis: (3) Metabolic encephalopathy: (4) Paroxysmal atrial fibrillation: (5) CESAR (acute kidney injury): (6) Elevated troponin: (7) Acute electrocardiogram changes: (8) Chronic heart failure with preserved ejection fraction (HFpEF): (9) Severe aortic stenosis: Plan Patient is a 77-year-old male who has a significant past medical history of medication noncompliance, T2DM, PAF anticoagulated on Eliquis, chronic HFpEF, moderate to severe aortic stenosis, HTN, HLD and BPH who presented to ED via EMS secondary to altered mental status. Complex social situation for discharge. Sepsis secondary to Serratia bacteremia with UTI related to indwelling Yee catheter-resolved with IV antibiotics completed 08/03 High anion gap metabolic acidosis-resolved H/O BPH/obstructive uropathy --CT ABD:Wall thickening of the urinary bladder with indwelling Yee catheter. Correlate for UTI. Hepatic steatosis. Sludge in the gallbladder. No hydronephrosis or nephrolithiasis. Mild fullness of the bilateral renal reyes ecting systems. Diverticulosis, without acute diverticulitis. No small bowel obstruction. No free intraperitoneal air . -- Blood and urine culture grew Serratia marcescens -- Repeat blood cultures negative --Yee catheter was exchanged while in ED per record --Completed IV cefepime course on 08/03 -- Seen by ID and urology. Recommendations noted. --Plan to continue Yee catheter as recommended by urology with monthly changes, last changed 08/17 --discussed with urology prior to d/c who will arrange for further outpt urology follow up --Continue Flomax, finasteride HHS--POA in the setting of Sepsis Metabolic encephalopathy --CT Head:No acute intracranial hemorrhage, midline shift, or mass effect. -- HbA1c 10.7 Mental status back to baseline CESAR/ATN- Likely from prerenal, sepsis. Creatinine was 3.2 on 07/24 which is improved and now plateaued at 1.7 which might be new baseline. Will monitor renal function, avoid nephrotoxic meds. Will need follow-up with nephrology upon discharge Atrial Fibrillation in RVR In the setting of sepsis Required cardioversion in ICU as per record Required IV Amiodarone which has since been discontinued - Currently in sinus -On metoprolol and Eliquis DM II Last HbA1c 10.7 Hold p.o. medications D/C Metformin due to renal function Increase lantus to 25 units at HS; continue novolog pt educated on diabetes management and following of blood sugar, states he has supplies at home Chronic HFpEF Severe Aortic Stenosis Daily weights/strict intake and output recent echo: 04/2023 EF 50-55%, moderate concentric LVH, moderate to severe aortic stenosis, moderate mitral calcification, RV normal in size and function Monitor volume status which is currently stable will continue to hold diuretics, to be re assessed by PCP. DVT Px:Eliquis CODE STATUS- DNI DNR Disposition-logistic issues limiting discharge. Jacques changed on 08/17, picking up patient today and taking to a hotel for a few days until further social arrangements made. Discharge Exam Gen: WD/WN, NAD, A&O x4 HEENT: +very hard of hearing, Normocephalic, atraumatic, conjunctivae moist, sclerae anicteric, mucous membranes moist. Lung: Clear to Auscultation bilaterally, no wheezes/rales/rhonchi Heart: Regular rate, regular rhythm, +murmur, rubs, or gallops Abdomen: Soft, NT, ND +BS x 4 Extremities: no b/l edema Skin: Warm, no rash, negative turgor. Updated Medication List Medication Instructions Recorded Confirmed Type apixaban 5 mg tablet (Eliquis) 5 mg PO BID #60 tabs 08/18/23 Rx atorvastatin 40 mg tablet 40 mg PO QAM #30 tabs 08/18/23 Rx finasteride 5 mg tablet 5 mg PO DAILY #30 tabs 08/18/23 Rx insulin aspart U-100 100 unit/mL 5 unit (0.05 mL) subcut TIDM #15 mL 08/18/23 Rx (3 mL) subcutaneous pen (Novolog FlexPen U-100 Insulin aspart) insulin glargine 100 unit/mL (3 25 unit (0.25 mL) subcut HS #15 mL 08/18/23 Rx mL) subcutaneous pen (Lantus Solostar U-100 Insulin) metoprolol tartrate 25 mg tablet 25 mg PO BID #60 tabs 08/18/23 Rx pantoprazole 40 mg tablet,delayed 40 mg PO DAILY #30 tabs 08/18/23 Rx release tamsulosin 0.4 mg capsule 0.4 mg PO DAILY #30 caps 08/18/23 Rx Hospital Stay Data Consultations 07/24/23 15:43 ED Decision to Admit Stat 07/24/23 16:10 Consult Gate Watch Routine 07/24/23 19:42 Consult Nephrology Routine 07/26/23 15:35 Consult Infectious Diseases Routine 08/05/23 11:58 Consult Urology Routine Diagnostic Imagining Performed Chest X-Ray 07/24/23 13:18 XR chest 1V portable HISTORY: Sepsis COMPARISON: Chest 04/29/2023. FINDINGS: No pneumothorax. No pleural effusions. The cardiac silhouette remains mildly enlarged. No evidence for pulmonary edema. No new focal lung consolidations to suggest a pneumonia. No acute fractures identified. IMPRESSION: No significant change compared to the prior study. No acute process. ACT 112: Negative or not required by law. Electronically signed by: Del Blackburn M.D. 07/24/2023 1:43 PM Abdomen/Pelvis CT 07/24/23 15:15 Exam(s): CT ABDOMEN + PELVIS Without Contrast EXAM: CT Abdomen and Pelvis Without Intravenous Contrast CLINICAL HISTORY: Reason for exam: sepsis, ?UTI. TECHNIQUE: Axial computed tomography images of the abdomen and pelvis without intravenous contrast. CTDI is 26.62 mGy and DLP is 1218.87 mGy-cm. Automated exposure control was utilized for the study. A dose lowering technique was utilized adhering to the principles of ALARA. COMPARISON: No relevant prior studies available. FINDINGS: Lung bases: Unremarkable. No mass. No consolidation. Mediastinum: Small hiatal hernia. ABDOMEN: Liver: Hepatic steatosis. Gallbladder and bile ducts: Sludge in the gallbladder. No calcified stones. No ductal dilation. Pancreas: Atrophy of the pancreas. No ductal dilation. Spleen: Unremarkable. No splenomegaly. Adrenals: Unremarkable. No mass. Kidneys and ureters: No hydronephrosis or nephrolithiasis. Mild fullness of the bilateral renal collecting systems. Stomach and bowel: Diverticulosis, without acute diverticulitis. No small bowel obstruction. No free intraperitoneal air . PELVIS: Appendix: No findings to suggest acute appendicitis. Bladder: Wall thickening of the urinary bladder with indwelling Yee catheter. Correlate for UTI. No stones. Reproductive: Unremarkable as visualized. ABDOMEN and PELVIS: Intraperitoneal space: Unremarkable. No free air. No significant fluid collection. Bones/joints: Degenerative changes of the spine. No acute fracture. No dislocation. Soft tissues: Unremarkable. Vasculature: Atherosclerotic changes of the aorta. No abdominal aortic aneurysm. Lymph nodes: Unremarkable. No enlarged lymph nodes. IMPRESSION: 1. Wall thickening of the urinary bladder with indwelling Yee catheter. Correlate for UTI. 2. Hepatic steatosis. 3. Sludge in the gallbladder. 4. No hydronephrosis or nephrolithiasis. Mild fullness of the bilateral renal collecting systems. 5. Diverticulosis, without acute diverticulitis. No small bowel obstruction. No free intraperitoneal air . Electronically signed by: Shawn Trotter MD 07/24/23 19:[address] 07/24/23 15:15 Exam(s): CT HEAD Without Contrast EXAM: CT Head Without Intravenous Contrast CLINICAL HISTORY: Reason for exam: ams. TECHNIQUE: Axial computed tomography images of the head/brain without intravenous contrast. CTDI is 37.78 mGy and DLP is 546.36 mGy-cm. Automated exposure control was utilized for the study. A dose lowering technique was utilized adhering to the principles of ALARA. COMPARISON: No relevant prior studies available. FINDINGS: No acute intracranial hemorrhage. No midline shift or mass effect. The territorial franco-white matter differentiation is maintained throughout. Age-related cerebral volume loss. Periventricular and subcortical white matter hypoattenuation, consistent with chronic microangiopathy. The visualized orbits appear grossly unremarkable. The calvarium is intact. The visualized paranasal sinuses and mastoid air cells are grossly clear. IMPRESSION: No acute intracranial hemorrhage, midline shift, or mass effect. Electronically signed by: Shawn Trotter MD 07/24/23 19:48 PM Venous Doppler Study 07/26/23 00:00 BILATERAL LOWER EXTREMITY VENOUS DOPPLER CLINICAL HISTORY: leg pain COMPARISON STUDY: Right lower extremity venous Doppler ultrasound May 16, 2022. Bilateral lower extremity venous Doppler ultrasound November 08, 2021. TECHNIQUE: Sonography of the deep venous system of the bilateral lower extremities was performed. Compression and augmentation were evaluated. FINDINGS: Evaluation of the calf vessels was suboptimal due to edema. Left popliteal vein was not well-visualized due to difficulty positioning. The bilateral common femoral, superficial femoral and popliteal veins were compressible. Augmentation was normal. Flow was shown within the deep calf vessels. Note is made of a 3.6 x 0.7 x 2.4 cm right popliteal cyst. IMPRESSION: 1. No evidence of deep venous thrombus within the bilateral lower extremities although exam technically compromised, as above. 2. 3.6 x 0.7 x 2.4 cm right popliteal cyst. ACT 112: Negative or not required by law. Electronically signed by: Marco Mcpherson M.D. 07/26/2023 7:32 AM Chest X-Ray 07/31/23 08:00 XR chest 1V portable CLINICAL HISTORY: HF pt gaining wt > check plm vasc congestion TECHNIQUE: Single frontal radiograph of the chest was obtained. Comparison: Comparison is made to chest radiograph 07/24/2023 FINDINGS: No lines and tubes are seen. Cardiomegaly is noted. The lungs are clear. No evidence of pleural effusion or pneumothorax. IMPRESSION: Cardiomegaly without significant pulmonary vascular congestion. ACT 112: Negative or not required by law. Electronically signed by: Anderson Serra M.D. 07/31/2023 8:40 AM Pending Results Patient Have Any Pending Studies at Discharge: No Discharge Instructions Given to Patient (Per Discharging Provider) MEDICATION CHANGES: STOP TAKING: Lasix Metformin New Medications: Pantoprazole 40mg daily for stomach protection Changed Medications: Increase Lantus to 25 units at bedtime Continue taking all other medications PENDING TEST RESULTS: none RECOMMENDATIONS FOR FOLLOW-UP: Please take your insulin as prescribed. If you run out or can not afford your medications please contact your primary care provider right away. Please follow up with Primary Care Provider and nephrology and urology as scheduled. Your yee catheter was exchanged on 08/17/23. You will need to have it exchanged every month to prevent infection. This will be done in the urology clinic. They will call you to set up an appointment. If you do not hear from them please call their office @ [phone]. Your lasix has been discontinued. Please follow up with your Primary Care Provider if you should resume taking this medication. Your metformin has been stopped due to elevated kidney function. Recommend repeat lab work, specifically your kidney function and electrolytes at your follow up appointment with primary care provider. Please check blood sugar before all meals and at bedtime. If you are skipping a meal please do not take your novolog. Keep a log of your blood sugar and take this with you to your Primary Care Provider appointment. It is crucial that you have better control of your blood sugar as your last A1C was 10.7. OTHER INSTRUCTIONS: Seek medical attention if you have: * temperature above 101 * chest pain or trouble breathing * abdominal pain, nausea, vomiting * diarrhea, dark stools or bloody stools * any unanswered questions or concerns Call 911 if symptoms are severe. Please take good care of yourself. It has been a pleasure taking care of you. Please take care of yourself. If you have any questions regarding your recent hospitalization please contact [facility] and request anita Hospitalist @ [phone]. Marga Le PA-C Total Time Total Time Spent Total Time Spent (In Minutes): 60 minutes Supervising Physician Co-Signing Physician Notes Pt seen and examined by myself, Katherine Khanna MD on the day of service. Care was coordinated with Marga Le PA-C. 78yo gentleman admitted with resolved sepsis and AMS. Also uncontrolled diabetes. Very complex living situation, was difficult to get him discharged as pt previously living in a tent. Will require social assistance after discharge, discharged to care of his who stated he would be placed in a hotel. PCP follow up for diabetes. Otherwise as above.
== END 2023-08-18 15:13 | disposition home or self-care (01) | DRG 698 ==
LOC: ED 12:49 → SUATTDRO 16:03 → 1E 16:03 → 2E 07-25 19:25 → 3N 08-06 18:01
DX: I48.0 Paroxysmal atrial fibrillation; N32.0 Bladder-neck obstruction; Z58.6 Inadequate drinking-water supply; R46.89 Other symptoms and signs involving appearance and behavior; R65.20 Severe sepsis without septic shock; H91.93 Unspecified hearing loss, bilateral; N17.0 Acute kidney failure with tubular necrosis; N40.1 Benign prostatic hyperplasia with lower urinary tract symptoms; E11.10 Type 2 diabetes mellitus with ketoacidosis without coma; E87.4 Mixed disorder of acid-base balance; Y92.833 Campsite as the place of occurrence of the external cause; Z79.84 Long term (current) use of oral hypoglycemic drugs; Z79.01 Long term (current) use of anticoagulants; R94.31 Abnormal electrocardiogram [ECG] [EKG]; T83.511A Infection and inflammatory reaction due to indwelling urethral catheter, initial encounter; E86.0 Dehydration; N39.0 Urinary tract infection, site not specified; Z58.89 Other problems related to physical environment; Z87.891 Personal history of nicotine dependence; Z66 Do not resuscitate; I11.0 Hypertensive heart disease with heart failure; I35.0 Nonrheumatic aortic (valve) stenosis; G93.41 Metabolic encephalopathy; Z59.01 Sheltered homelessness; I50.32 Chronic diastolic (congestive) heart failure; E87.1 Hypo-osmolality and hyponatremia; I48.92 Unspecified atrial flutter; A41.53 Sepsis due to Serratia; J96.01 Acute respiratory failure with hypoxia; Z79.4 Long term (current) use of insulin; I24.89 Other forms of acute ischemic heart disease; Y80.2 Prosthetic and other implants, materials and accessory physical medicine devices associated with adverse incidents; Z91.148 Patient's other noncompliance with medication regimen for other reason

== ENCOUNTER 2024-04-07 10:54 | Inpatient (IN) ==
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
[2024-04-07] MEDS: SODIUM CHLORIDE 0.9% 1,000 ML IV ONE (12:10)
[2024-04-07] MEDS: cefTRIAXone SODIUM 2,000 MG/50 ML BAG IV STA (12:17)
[2024-04-07 12:29] LABS: Basophils # (auto) 0.07 K/uL (0.00-0.20); Basophils % (auto) 0.5 %; Eosinophils % (auto) 1.4 %; Hemoglobin 13.4 g/dl (14.0-18.0); Immature Granulocytes # (auto) 0.04 K/uL (0.01-0.20); Immature Granulocytes % (auto) 0.3 %; Mean Corpuscular Hemoglobin 28.6 pg (25.0-34.0); Mean Corpuscular Hgb Conc 33.5 g/dL (32.0-36.0); Mean Corpuscular Volume 85.3 fL (80.0-100.0); Mean Platelet Volume 10.6 fL (9.4-12.4); Monocytes # (auto) 0.87 K/uL (0.11-0.59); Neutrophils # (auto) 11.49 K/uL (1.40-6.50); Neutrophils % (auto) 78.8 %; Platelet Count 320 K/uL (130-400); RDW Standard Deviation 36.9 fL (36.4-46.3); Red Blood Count 4.69 M/uL (4.70-6.10); White Blood Count 14.57 K/ul (4.8-10.8)
[2024-04-07 13:04] LABS: Albumin Globulin Ratio 0.8 (0.9-2); Albumin Level 3.4 gm/dl (3.4-5.0); BUN Creatinine Ratio 18.5 (10-20); Bilirubin,Total 0.6 mg/dl (0.2-1.0); Calcium 8.7 mg/dl (8.6-10.3); Creatinine Clr Calc Pharmacy 36.1 ml/min; Est GFR (African American) 44.4 ml/min; Est GFR (Non-African American) 38.3 ml/min; Globulin 4.3 gm/dl (2.5-4.0); Potassium 4.7 mmol/L (3.5-5.1); Total Protein 7.7 gm/dl (6.0-8.3)
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
--- NOTE | 2024-04-07 13:30 | CT Scan Report ---
SINUS CT CT DOSE: 567.55 mGy.cm HISTORY: maggots in left ear TECHNIQUE: Multiaxial CT images of the paranasal sinuses were performed and reformatted in the amezcua l plane without the use of contrast. A dose lowering technique was utilized adhering to the principl es of RUSTAM. COMPARISON: Head CT 07/24/2023. FINDINGS: The frontal sinuses, ethmoid air cells, sphenoid sinuses, and bilateral maxillary antra are clear. The right mastoid air cells are clear. The bilateral ostiomeatal units are patent. Mild left nasal septal deviation with a left-sided nasal spur. No significant abnormality within the brain. The orbits are unremarkable. Postoperative changes consistent with a prior left canal wall down mastoide ctomy. There is thickening and a small amount of debris again noted at the mastoidectomy defect. This is similar to the prior study. There is also partial opacification of the left middle ear cavity, un changed. There is occlusion of the left external auditory canal due to the soft tissue thickening. Th ere are few punctate calcifications adjacent to the left ear, unchanged. No loculated fluid collectio ns to suggest an abscess. No radiopaque foreign bodies. IMPRESSION: 1. Postoperative changes consistent with a prior left canal wall down mastoidectomy. There is thicken ing and a small amount of debris again noted at the mastoidectomy defect. This is similar to the prio r study. 2. There is occlusion of the left external auditory canal due to the soft tissue thickening. 3. No loculated fluid collections to suggest an abscess. 4. No radiopaque foreign bodies. ACT 112: Negative or not required by law. Electronically signed by: Del Blackburn M.D. 04/07/2024 1:28 PM
[2024-04-07] MEDS: NovoLIN-R INSULIN PER UNIT CHARGE IV STA (13:41)
--- NOTE | 2024-04-07 13:50 | Anesthesiology Consultation ---
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 History Surgery Operation Date: 04/07/24 07:55 Proposed Procedures p Exam Under Anesthesia, Ear Cleaning - Francisco Javier Almodovar MD Height/Weight Height: 5 ft 6 in Weight: 80.4 kg Allergies Allergy/AdvReac Type Severity Reaction Status Date / Time lisinopril Allergy Severe Swelling Verified 01/04/24 14:16 of Face/Lips/Tongue Medications Home Medications Medication Instructions Recorded Confirmed Last Taken apixaban 5 mg tablet (Eliquis) 5 mg PO BID #60 tabs 08/18/23 04/07/24 Unknown atorvastatin 40 mg tablet 40 mg PO QAM #30 tabs 08/18/23 04/07/24 Unknown finasteride 5 mg tablet 5 mg PO DAILY #30 tabs 08/18/23 04/07/24 Unknown insulin aspart U-100 100 unit/mL 5 unit (0.05 mL) subcut TIDM #15 mL 08/18/23 04/07/24 Unknown (3 mL) subcutaneous pen (Novolog FlexPen U-100 Insulin aspart) metoprolol tartrate 25 mg tablet 25 mg PO BID #60 tabs 08/18/23 04/07/24 Unknown pantoprazole 40 mg tablet,delayed 40 mg PO DAILY #30 tabs 08/18/23 04/07/24 Unknown release tamsulosin 0.4 mg capsule 0.4 mg PO DAILY #30 caps 08/18/23 04/07/24 Unknown insulin glargine 100 unit/mL (3 22 unit subcut HS 04/07/24 04/07/24 Unknown mL) subcutaneous pen (Lantus Solostar U-100 Insulin) Past Medical History Medical History Catheter-associated urinary tract infection Gram-negative bacteremia Acute electrocardiogram changes Elevated troponin CESAR (acute kidney injury) Metabolic encephalopathy High anion gap metabolic acidosis DKA (diabetic ketoacidosis) Admitted to intensive care unit Acute hypokalemia Acute hyperglycemia Puncture wound of foot, right Right foot infection Bacteremia D-dimer, elevated Heart failure with preserved ejection fraction Hypokalemia HTN (hypertension) Moderate aortic stenosis Premature atrial complexes Paroxysmal atrial fibrillation Abnormal urinalysis DVT prophylaxis Volume overload Cellulitis DM type 2 (diabetes mellitus, type 2) Leukocytosis Bilateral edema of lower extremity Elevated brain natriuretic peptide (BNP) level Atrial fibrillation with rapid ventricular response Dyspnea Past Family History Family History Brother Diabetes Past Surgical History Surgical History History of ear surgery age 19, mastoid H/O shoulder surgery S/P foot surgery, left Social History Smoking Status: Former smoker tobacco type: smokeless tobacco Do You Dip or Chew Tobacco: No Hx Alcohol Use: No Alcohol type: beer alcohol intake frequency: a few times a week Hx Substance Use: No substance use type: does not use Physical Exam Vital Signs Last Vital Signs Temp 98.1 F 04/07/24 11:12 Pulse 78 04/07/24 11:12 Resp 20 04/07/24 11:12 BP 126/68 04/07/24 11:12 Pulse Ox 99 04/07/24 12:24 O2 Del Method Room Air 04/07/24 12:24 Testing Laboratory Results 04/07/24 12:00 04/07/24 12:00 Electrocardiogram Date: 07/28/23 Sinus bradycardia, rate 56 bpm Incomplete right bundle branch block Left anterior fascicular block Possible Septal infarct , age undetermined ST & T wave abnormality, consider inferior ischemia ST & T wave abnormality, consider anterolateral ischemia Prolonged QT Abnormal ECG When compared with ECG of 26-JUL-2023 06:24, QT has shortened Chest X-Ray Date: 07/24/23 IMPRESSION: Cardiomegaly without significant pulmonary vascular congestion. Echocardiogram Date: 07/24/23 Mild LVH No regional wall motion abnormalities noted EF 55% RV is normal in size and function LA is mildly dilated Mild TR Mild pulm HTN. PASP is estimated 45 mm Hg Diastolic dysfunction, grad 2 AV is severely calcified Mod to borderline severe is present
[2024-04-07 14:53] LABS: Appearance Urine Clear (Clear); Bacteria Urine Automated None Seen (None Seen); Bilirubin Urine Negative (Negative); Blood Urine Trace (Negative); Color Urine Yellow; Epithelial Cell Urine Auto 0-2 /hpf (0-2); Glucose Urine UA 3+ (Negative); Ketones Urine Negative (Negative); Leukocyte Esterase Urine 1+ (Negative); Nitrite Urine Negative (Negative); Protein Urine Trace (Negative); RBC Urine Automated 0-2 /hpf (0-2); Specific Gravity Urine 1.024 (1.000-1.030); Urobilinogen Urine Negative (Negative); WBC Urine Automated >50 /hpf (0-5); pH Urine 7.5 (4.5-7.5)
[2024-04-07] MEDS ORDERED: ONDANSETRON INJ 2 MG/ML 2 ML VIAL IV PRN ×2 (15:09→17:38)
[2024-04-07] MEDS ORDERED: ATROPINE SULFATE 0.1 MG/ML 10ML SYR IV PRN (15:09)
[2024-04-07] MEDS ORDERED: fentaNYL citrate PF 100 MCG/2 ML VIAL IV PRN (15:09)
[2024-04-07] MEDS ORDERED: PROMETHAZINE HCL 6.25 MG in SODIUM CHLORIDE 0.9% 50 ML IV PRN (15:09)
[2024-04-07] MEDS ORDERED: ePHEDrine sulfate 50 MG/ML AMP IV PRN (15:09)
[2024-04-07] MEDS: DAPTOmycin 275 MG in SYRINGE 0 ML IV SCH (15:11)
[2024-04-07] MEDS: OFLOXACIN 0.3% 75 DROPS/5 ML BTL ONE (15:11)
[2024-04-07] MEDS: LACTATED RINGER'S 1,000 ML IV SCH (15:57)
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
[2024-04-07] MEDS ORDERED: KETAMINE HCL 10MG/ML SYR ONE (17:07)
[2024-04-07] MEDS: CIPRO 0.3%/DEXAMETHASONE 0.1% OTIC SUSP 7.5ML ONE (17:14)
[2024-04-07] MEDS ORDERED: PROPOFOL IV EMULSION 10 MG/ML 20 ML VIAL IV ONE (17:17)
[2024-04-07] MEDS ORDERED: LIDOCAINE 2% 2 ML VIAL/AMP(20MG/ML) INFIL ONE (17:17)
--- NOTE | 2024-04-07 17:20 | Post Operative Brief Note ---
PG Immediate Post Op with CF Date of Surgery April 07, 2024 Pre & Post Diagnosis Operation Date: 04/07/24 07:55 <No data on this case meets the specified criteria> I identified the patient and participated in the time-out.: Yes Procedure Examination left ear under general anesthesia Operation Date: 04/07/24 07:55 <No data on this case meets the specified criteria> Surgeon Francisco Javier Almodovar MD Cashier Checker none Estimated Blood Loss 0 Findings Consistent with Post-Op Diagnosis Areas of edema and necrosis. TM intact Specimens Specimen Description: A. Left ear foreign body Complications none
--- NOTE | 2024-04-07 17:24 | Operative Report ---
PG Post Operative Report Pre & Post Diagnosis Operation Date: 04/07/24 07:55 <No data on this case meets the specified criteria> I identified the patient and participated in the time-out.: Yes Procedure examination left ear under general anesthesia Operation Date: 04/07/24 07:55 <No data on this case meets the specified criteria> Surgeon Francisco Javier Almodovar MD Grocery Department Manager none Estimated Blood Loss 0 Findings Consistent with Post-Op Diagnosis EDema and necrosis of external auditory canal. Tympanic membrane intact Specimens one foreign body appeared to be maggot Anesthesia Type General Complications none Indications infection left ear Description of Procedure A speculum placed in the left ear. Fluid suctioned. The above findings seen. Flushed copiously with H202 Ciprodex drops placed in the ear and a romero wick I attest to the content of the Intraoperative Record and any orders documented therein. Any exceptions are noted below.
[2024-04-07] MEDS ORDERED: GLUCOSE 10 TAB/TUBE PO PRN (17:38)
[2024-04-07] MEDS ORDERED: GLUCAGON FOR INJ 1 MG VIAL SQ PRN (17:38)
[2024-04-07] MEDS ORDERED: MAGNESIUM HYDROXIDE SUSP 30 ML UDC PO PRN (17:38)
[2024-04-07] MEDS ORDERED: CARBOHYDRATES FOR HYPOGLYCEMIA PO PRN (17:38)
[2024-04-07] MEDS ORDERED: DEXTROSE 50% 50 ML SYRINGE IV PRN (17:38)
[2024-04-07] MEDS ORDERED: ALUMINUM/MAGNESIUM SUSP 30 ML UDC PO PRN (17:38)
[2024-04-07] MEDS ORDERED: ACETAMINOPHEN 325 MG TAB PO PRN (17:38)
[2024-04-07] MEDS ORDERED: GLUCOSE 40% GEL 15 GM TUBE PO PRN (17:38)
--- NOTE | 2024-04-07 18:00 | Anesthesiology Progress Note ---
Date of Service April 07, 2024 Anesthesia Post Procedure Vital Signs Vital Signs: Temp Pulse Pulse Pulse Resp BP BP 04/07/24 17:55 74 18 109/75 04/07/24 17:45 36.0 C L 70 18 130/72 04/07/24 15:44 37.4 C 78 20 125/59 L 04/07/24 15:27 78 14 04/07/24 15:18 85 17 04/07/24 15:00 78 18 04/07/24 15:00 130/76 04/07/24 14:36 17 04/07/24 14:00 83 24 04/07/24 14:00 124/76 04/07/24 13:54 77 17 04/07/24 12:54 84 24 04/07/24 12:45 86 23 04/07/24 12:33 88 19 04/07/24 12:24 04/07/24 11:12 36.7 C 78 20 126/68 Pulse Ox O2 Del Method 04/07/24 17:55 98 Room Air 04/07/24 17:45 97 Room Air 04/07/24 15:44 96 Room Air 04/07/24 15:27 04/07/24 15:18 04/07/24 15:00 04/07/24 15:00 04/07/24 14:36 04/07/24 14:00 04/07/24 14:00 04/07/24 13:54 04/07/24 12:54 04/07/24 12:45 04/07/24 12:33 91 04/07/24 12:24 99 Room Air 04/07/24 11:12 97 Room Air Transfer of Care Handoff Completed per policy Notes Mental Status: alert / awake / arousable and participated in evaluation Patient Amnestic to Procedure: Yes Nausea / Vomiting: adequately controlled Pain: adequately controlled Airway Patency, RR, SpO2: stable & adequate BP & HR: stable & adequate Hydration State: stable & adequate Anesthetic Complications: no major complications apparent and Pt Satisfied with anesthetic care
[2024-04-07] MEDS: INSULIN ASPART PER UNIT CHARGE SC SCH (19:36)
[2024-04-07] MEDS: CEFEPIME 2,000 MG in SYRINGE 0 ML IV SCH (20:22)
[2024-04-07] MEDS: APIXABAN 5 MG TABLET PO SCH (20:22)
[2024-04-07] MEDS: METOPROLOL TARTRATE 25 MG TAB PO SCH (20:24)
[2024-04-07] MEDS: MICONAZOLE NITRATE POWDER 85 GM EXT SCH (20:25)
[2024-04-07] MEDS: METOPROLOL TARTRATE 1 MG/ML VIAL IV STA (20:52)
[2024-04-07] MEDS: LANTUS PER UNIT CHARGE SC SCH (22:05)
--- NOTE | 2024-04-08 01:02 | Ultrasound Report ---
Exam(s): US VENOUS BILATERAL LOWER EXTREMITIES EXAM: US Duplex Bilateral Lower Extremities Veins CLINICAL HISTORY: Reason for exam: edema. TECHNIQUE: Real-time duplex ultrasound scan of the bilateral lower extremity veins integrating B-mode two-dimensional vascular structure, Doppler spectral analysis, color flow Doppler imaging and compression. COMPARISON: 07/26/2023. FINDINGS: Right deep veins: Unremarkable. No DVT in the right common femoral, femoral, proximal deep femoral or popliteal veins. The veins demonstrate normal color flow, are normally compressible, with normal phasic flow and/or augmentation response. Right superficial veins: Unremarkable. No thrombus in the visualized right great saphenous vein. Left deep veins: Unremarkable. No DVT in the left common femoral, femoral, proximal deep femoral or popliteal veins. The veins demonstrate normal color flow, are normally compressible, with normal phasic flow and/or augmentation response. Left superficial veins: Unremarkable. No thrombus in the visualized left great saphenous vein. Soft tissues: Calf edema. No popliteal cyst. IMPRESSION: No evidence of deep venous thrombosis above the knees. Electronically signed by: Clemente Taylor M.D. 04/08/24 01:01 AM
--- NOTE | 2024-04-08 01:54 | Ultrasound Report ---
Exam(s): US ARTERIAL BILATERAL LOWER EXTREMITIES EXAM: US Duplex Bilateral Lower Extremities Arteries CLINICAL HISTORY: Reason for exam: lower ext wounds. TECHNIQUE: Real-time duplex ultrasound scan of the bilateral lower extremity arteries integrating B-mode two-dimensional vascular structure, Doppler spectral analysis and color flow Doppler imaging. COMPARISON: No relevant prior studies available. FINDINGS: RIGHT: Diffuse plaque. Triphasic flow above the knee. Monophasic flow below the knee involving the trifurcation vessels. Common femoral artery: 85.1 Superficial femoral artery: Proximal: 107 Mid: 104 Distal: 94 Popliteal artery: 104.3 Right calf/foot arteries: DIRECTOR OF CATEGORY MANAGEMENT Proximal: 141 DIRECTOR OF CATEGORY MANAGEMENT Distal: 117 JOSAFAT: 76 DPA: 93 (not visualized distally) LEFT: Diffuse plaque. Triphasic flow above the knee. Monophasic flow below the knee involving the trifurcation vessels. Common femoral artery: 109 Superficial femoral artery: Proximal: 161 Mid: 126 Distal: 123 Popliteal artery: 105 Right calf/foot arteries: DIRECTOR OF CATEGORY MANAGEMENT Proximal: 131 DIRECTOR OF CATEGORY MANAGEMENT Distal: 195 JOSAFAT: 92 DPA: 85 Soft tissues: Unremarkable. IMPRESSION: Bilateral extensive plaque with bilateral trifurcation disease. Elevated flow velocities in the left trifurcation vessels below the knee consistent with more severe stenosis. Electronically signed by: Clemente Taylor M.D. 04/08/24 01:53 AM
[2024-04-08 05:40] LABS: Basophils # (auto) 0.07 K/uL (0.00-0.20); Basophils % (auto) 0.6 %; Eosinophils # (auto) 0.27 K/uL (0.00-0.50); Eosinophils % (auto) 2.4 %; Hematocrit (blood only) 34.6 % (42.0-52.0); Hemoglobin 11.8 g/dl (14.0-18.0); Immature Granulocytes # (auto) 0.03 K/uL (0.01-0.20); Immature Granulocytes % (auto) 0.3 %; Lymphocytes # (auto) 2.77 K/uL (1.20-3.40); Lymphocytes % (auto) 24.7 %; Mean Corpuscular Hemoglobin 28.9 pg (25.0-34.0); Mean Corpuscular Hgb Conc 34.1 g/dL (32.0-36.0); Mean Corpuscular Volume 84.8 fL (80.0-100.0); Mean Platelet Volume 10.3 fL (9.4-12.4); Monocytes # (auto) 0.93 K/uL (0.11-0.59); Monocytes % (auto) 8.3 %; Neutrophils # (auto) 7.14 K/uL (1.40-6.50); Neutrophils % (auto) 63.7 %; Platelet Count 270 K/uL (130-400); RDW Coefficient of Variation 12.1 % (11.5-14.5); RDW Standard Deviation 36.8 fL (36.4-46.3); Red Blood Count 4.08 M/uL (4.70-6.10); White Blood Count 11.21 K/ul (4.8-10.8)
[2024-04-08 05:54] LABS: Albumin Globulin Ratio 0.7 (0.9-2); Albumin Level 2.7 gm/dl (3.4-5.0); Bilirubin,Total 0.4 mg/dl (0.2-1.0); Creatinine Clr Calc Pharmacy 37.2 ml/min; Est GFR (African American) 46.1 ml/min; Est GFR (Non-African American) 39.8 ml/min; Globulin 3.8 gm/dl (2.5-4.0); Magnesium 1.9 mg/dl (1.7-2.4); Potassium 4.1 mmol/L (3.5-5.1); Total Protein 6.5 gm/dl (6.0-8.3)
--- NOTE | 2024-04-08 07:40 | History & Physical Bridge Note ---
Date of Service April 08, 2024 History & Physical Bridge Note I have examined the patient, reviewed the History & Physical and in the interval since the performance of the History & Physical I have noted the following changes of clinical significance: Patient is doing well this morning. I will be leaving this morning so if there are any problems the hospitalist can contact the office.
--- OUTSIDE RECORDS SUMMARY | 2024-04-08 07:53 | External Medical Summary | Summary of Care ---
Author Name Unknown Organization [facility] Address [address] [address] Phone [phone] Care Team Providers Care Art Tracer Name Role Phone Yariel Mariavor Sophy Primary Care Provider Reason for Visit * Reason Comments Dosage Adjustment In Person (Anticoag Cl inic) Diabetes Follow-Up Encounter Details Date Type Department Care Team (Late st Contact Info) Description 03/11/2024 3:00 PM EDT Office Visit Pharm[facility], [facility] [address] [facility] [address] [place] [address] [facility] [address] [id number] Type 2 diabetes mellitus with hemoglobin A1c goal of less than 8.0% ([facility])* Allergies Active Allergy Reactions Criticality Noted Date Comments Lisinopril Edema face/lips/tongue High 04/05/2018 documented as of this encounter (statuses as of 03/11/2024) Medications Medication Sig Dispensed Refills Start Date [...] 11 12/27/2021 Active FreeStyle Rose Marie 2 [place] Device Test blood sugars four times daily 1 Each 0 12/27/2021 Active Insulin Aspart 100 UNIT/ML Injection Solution 5 Units. Pt takes 5 to 6 units before meals 0 05/16/2022 Active Gentamicin Sulfate 0.1 % External OintmentIndications:Se condary impetiginization Apply to wounds on hands twice daily 15 g 1 01/28/2023 Active Silver sulfADIAZINE 1 % External Cream (Silvadene) Apply to wounds on hands 100 g 1 04/01/2023 Active Pen Oriska 32G X 4 MM Use as directed. Use to inject insulin up to 4 times daily. 30 Each 0 05/06/2023 Active Atorvastatin Calcium 40 MG Oral Tablet (Lipitor)Indications:D yslipidemia TAKE ONE TABLET BY MOUTH EVERY DAY 90 Tablet 1 08/23/2023 4 Active Pantoprazole Sodium 40 MG Oral Tablet Delayed Release (Protonix)Indications: Gastroesophageal reflux disease without esophagitis Take 1 Tablet by mouth in the morning. 90 Tablet 3 08/24/2023 Active Ammonium Lactate 12 % External Cream Apply to both feet once daily. 280 g 5 09/30/2023 Active Xultophy 100-3.6 UNIT-MG/ML Subcutaneous Solution Pen-injector (Insulin Degludec-Liraglutide) Inject 15 Units under the skin at bedtime. 15 mL 5 11/05/2023 Active Tamsulosin HCl 0.4 MG Oral Capsule (Flomax)Indications:BP H with obstruction/lower urinary tract symptoms TAKE ONE CAPSULE BY MOUTH EVERY MORNING 100 Capsule 2 12/29/2023 5 Active FreeStyle Rose Marie 2 [place] DeviceIndications:Type 2 diabetes mellitus with hemoglobin A1c goal of less than 8.0% (HCC),Type 2 diabetes mellitus with polyneuropathy (HCC),Diabetic ulcer of toe of right foot associated with type 2 diabetes mellitus, with fat layer exposed (HCC) Test blood sugar 4 times daily 1 Each 5 01/07/2024 Active FreeStyle Rose Marie 2 SensorIndications:Type 2 diabetes mellitus with hemoglobin A1c goal of less than 8.0% (HCC),Type 2 diabetes mellitus with polyneuropathy (HCC),Diabetic ulcer of toe of right foot associated with type 2 diabetes mellitus, with fat layer exposed (HCC) Use as directed. Test blood sugar 4 times daily 1 Each 5 01/07/2024 Active Apixaban 5 MG Oral Tablet (Eliquis)Indications:P AF (paroxysmal atrial fibrillation) ([facility]) Take 1 Tablet by mouth in the morning and 1 Tablet before bedtime. 180 Tablet 3 01/29/2024 Active Finasteride 5 MG Oral Tablet (Proscar) Take 1 Tablet by mouth in the morning. 0 Active Pen Oriska 32G X 4 MMIndications:Type 2 diabetes mellitus with hemoglobin A1c goal of less than 8.0% ([facility]) Use as directed. Use to inject insulin up to 4 times daily. 400 Each 3 02/08/2024 Active Metoprolol Tartrate 25 MG Oral Tablet (Lopressor)Indications :Chronic atrial fibrillation ([facility]) TAKE ONE TABLET BY MOUTH TWICE A DAY -- IN THE MORNING AND BEFORE BEDTIME 180 Tablet 1 02/20/2024 Active documented as of this encounter (statuses as of 03/11/2024) Active Problems Problem Noted Date Diagnosed Date Chronic kidney disease, stage 3b 02/08/2024 Chronic kidney disease, stage 3a 09/14/2023 Overview: Per CKD protocol Encounter for long-term (current) insulin use Medical home patient encounter 05/07/2023 Hypertensive heart disease w ith chronic diastolic congestive heart failure 01/20/2023 Chronic heart failure with preserved ejection fr action 01/06/2023 Nonrheumatic aortic valve stenosis 11/21/2022 Cellulitis of toe of left foot 06/05/2022 Last Assessment & Plan: Wound culture taken Start keflex 500 mg QID x 7 days Wound care clinic tomorrow Unsteady gait when walking 05/27/2022 Last Assessment & Plan: PT/OT eval ordered/faxed Overweight (BMI 25.0-29.9) 05/22/2022 Hoarding behavior 03/20/2022 Paroxysmal atrial fibrillation 03/20/2022 Last Assessment & Plan: Rate controlled Continue metoprolol and eliquis Moderate aortic stenosis 03/20/2022 Diabetic ulcer of toe of rig ht foot associated with type 2 diabetes mellitus, with fat layer exposed 01/09/2022 Atherosclerosis of [place] 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 angina pectoris 01/09/2022 BPH with obstruction/lower urinary tract symptom s 03/13/2020 Multilevel degenerative disc disease 03/13/2020 Tympanic membrane perforation, right 12/05/2019 Type 2 diabetes mellitus with polyneuropathy 09/2019 Last Assessment & Plan: HgbA1C 7.8 on [...] Per Lipid Taxonomy. Type 2 diabetes mellitus wit h hemoglobin A1c goal of less than 8.0% [...] as of this encounter (statuses as of 03/11/2024) Resolved Problems Problem Noted Date Diagnosed Date Resolved Date Heart failure 06/05/2022 01/20/2023 Puncture wound of right foot 05/26/2022 01/20/2023 Overview: With associated cellulitis. Inpt treatment 05/16-05/18 Last Assessment & Plan: Healing well Going to wound care Blistering of skin 04/25/2022 2 Last Assessment & Plan: Pt denies burning [...] 04/15/2022 05/22/2022 Wound of right leg 03/20/2022 2 Mixed obsessional thoughts and acts 11/21/2019 01/09/2022 Need for prophylactic vaccin ation and inoculation against influenza 10/21/2018 02/09/2020 Overview: Acute. DM type 2 nursing care encounter 10/21/2018 03/13/2020 Neurogenic ulcer of foot 05/19/2017 HTN, GOAL BELOW 140/80 06/21/201202/06 Overview: Per HTN Protocol #27. OBESITY, BMI 30-34 (SEE ACTUAL BMI) 01/24/2010 03/13/2020 Overview: Per Obesity Taxonomy HTN, GOAL BELOW 130/80 11/28/200906/24 Overview: Per HTN Taxonomy. DM type 2, not at goal 04/05/200908/16 Overview: Modified per Diabetes protocol #14. Dyslipidemia, goal LDL below 160 04/05/2009 10/15/2009 Overview: Per Lipid Taxonomy. Obesity, BMI not known 04/04/200901/24 Overview: Per Obesity Taxonomy ADVANCE DIRECTIVE INFORMATION 07/15/2006 02/09/2020 Overview: Pt took booklet. Historical. AC SEROUS OTITIS MEDIA 07/15/200610/21 HTN, goal below 140/90 12/26/200411/28 Overview: Per HTN Taxonomy. 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 Chronic mastoiditis 03/13/20 Allergic rhinitis 10/21/2018 Dysfunction of eustachian tube 10/21/2018 documented as of this encounter (statuses as of 03/11/2024) Immunizations Name Administration Dates Next Due COVID-19 [...] Formulation 08/10/2021,08/03/2020,08/22/2019,10/21,09/10/2017,09/16/2016,2013 ,08/03/2012,07/23/2011,09/10/2010,12/04,08/06/2009,11/01/2008 Seasonal Influenza, PF, 6 M & above, IM , (FluLaval or Fluzone) 08/03/2020,10/21/2018,09/10/2017 Seasonal Influenza, Quadriva lent Hd (Fluzone Hd) 07/13/2023,08/05/2022,08/10/2021 Seasonal Influenza, Quadriva lent, No Preserve, IM [...] last noted alcohol intake was 1 ounces. PHQ-2 Answer Date Recorded PHQ Adult Total Score 2 02/18/2023 Hunger Vital Sign Answer Date Recorded Within the past 12 months, y ou worried that your food would run out before you got the money to buy more. Never true 02/01/20 24 Within the past 12 months, t he food you bought just didn't last and you didn't have money to get more. Never true 02/01/2024 Sex and Gender Information Value Date Recorded Sex Assigned at Male 11/21/2019 11:44 AM EST Gender Identity Male 11/21/2019 11:44 AM EST Sexual Orientation Straight 11/21/2019 11 :44 AM EST Job Start Date Occupation Industry Not on file Not on file Not on file documented as of this encounter Progress Notes * Samina Blunt, [facility] - 03/11/2024 3:01 PM EDT Medication Therapy Disease Management [facility] - Diabetes Management Progress Note Selvin Sebastian, identified by name and date of , is a 78 year old male being seen for diabetes management/education. Patient presents for return diabetic visit. DIABETES: Current diabetic medications: Xultophy 22 units at HS Medication Injection Site: Abdomen Lifestyle: Diet: unchanged Glucose Review/SMBG: Readings per patient memory/recall: Patient is currently testing 0 times a day Hypoglycemia: Does your blood sugar go below 70 mg/dL? No Hyperglycemia symptoms present: none Recent Labs Units 02/08/24 1617 05/19/23 1525 01/27/23 1101 HEMOGLOBIN A1C - [facility] % 10.5* 9.4* 9.2* Recent Labs Units 02/08/24 1617 10/23/23 1527 08/26/23 0936 ESTIMATED GLOMERULAR FILTRATION RATE - [facility] mL/min 42* 29* 33* CREATININE - [facility] mg/dL 1.7* 2.2* 2.0* HYPERTENSION: Patient on ACEi/ARB: no, not indicated BP Readings from Last 3 Encounters: 02/11/24 126/72 02/08/24 136/78 01/29/24 114/66 Blood pressure at goal: yes HYPERLIPIDEMIA: Patient is taking moderate or high intensity statin: yes HEALTH MAINTENANCE REVIEW: Health Maintenance Due Topic Date Due COVID-19 Vaccine () 07/03/2023 Diabetic Eye Exam 09/01/2023 Albumin/Creatinine Ratio 01/28/2024 Depression Screening 02/19/2024 ASSESSMENT & PLAN: BG Readings - Blood sugars uncontrolled. A1c has increased and Bg values are not available. Medications - Reviewed current regimen, patient is adherent to regimen. Will continue, patient's will figure out about CGM. Diet, Exercise, Lifestyle - No significant lifestyle changes since last visit. Discussed with patient. Patient is agreeable to CGM Patient aware to contact clinic if any hypoglycemia before next visit. MEDICATION CHANGES: no change Diabetic Medications: Xultophy 22 units at HEALTH MAINTENANCE INTERVENTIONS: Labs: Up to Date Immunizations: Up to Date Foot Exam: Up to Date Eye Exam: Up to Date Annual Wellness Visit: N/A FOLLOW UP: Return to clinic in 12 weeks 06/10/2024 Samina Blunt [facility] Clinical Pharmacist - Brilliandeer Looper Medication Therapy Management [facility] 03/11/2024, 3:01 PM documented in this encounter Plan of Treatment Upcoming Encounters Date Type Department Care Team (Late st Contact Info) Description 04/11/2024 2:00 PM EDT Office Visit Podiatry [facility] [address] [place] [address] Kylie Burroughs DPM [address] [place] [address] [place] [address] 05/20/2024 5:00 PM EDT Office Visit Nephrology, [facility] [address] [place] [address] Jacek Calderón MD [address] [place] [address] 06/10/2024 3:00 PM EDT Office Visit Pharmacy, [facility] [address] [place] [address] [facility] [address] [place] [address] 07/27/2024 3:00 PM EDT Office Visit Cardiology, [facility] [address] [place] [address] Shelley Russell PA-C [address] [place] [address] 10/25/2024 1:20 PM EST Office Visit Family Practice [facility] [address] [place] [address] James Maria DO [address] [place] [address] Scheduled Procedures Name Priority Associated Diagnoses Date/Ti me COLONOSCOPY FLEXIBLE PROXIMA L DIAGNOSTIC Recall Encounter for screening colonoscopy Health Maintenance Due Date Last Done Comments COVID-19 Vaccine ( season) 2023 11/17/2022, 02/25/2022, 03/24/2021, Additional history exists Diabetic Eye Exam 09/01/2023 09/01/2022, , 12/15/2019, Additional history exists Albumin/Creatinine Ratio 01/28/2024 023, 06/05/2022, 03/13/2020, Additional history exists Depression Screening 02/19/2024 02/18/2023 GFR 08/09/2024 02/08/2024, 10/03, 08/26/2023, Additional history exists HbA1c 08/09/2024 02/08/2024, 05/02, 01/27/2023, Additional history exists CKD PHOS USE SMARTSET 93431 08/26/2024 08/26/2023 CKD HGB USE SMARTSET 67203 10/23/202410/23, 08/26/2023, 08/26/2023, Additional history exists Diabetic Foot Exam 02/07/2025 02/08/2024, 1 , 02/28/2021, Additional history exists DTaP,Tdap,and Td Vaccines (3 - Td or Tdap) 02/03/2033 02/03/2023, 10/21/2011, 11/09/2003 Pneumococcal Vaccine: 65+ Years Completed 12/24/2015, 07/23/2011 Zoster Vaccines Completed 03/13/2020, 11/03, 08/03/2012 Influenza Vaccine (FLU shot) Completed 09/2023, 08/05/2022, 08/10/2021, Additional history exists GARDASIL-HPV IMMUNIZATION SERIES Aged [...] goal of less than 8.0% ([facility])- Primary documented in this encounter Advance Directives Healthcare Agents on File Name Relationship Healthcare Agent Relationshi p Communication Farhana Sebastian Spouse Health Care Agent Care Teams Art Tracer Relationship Specialty Start Date End Date James Maria DO [address] [place] [address] PCP - General Family Medicine 06/07/18 documented as of this encounter
--- OUTSIDE RECORDS SUMMARY | 2024-04-08 07:53 | External Medical Summary | Summary of Care ---
Author Name Unknown Organization [facility] Address [address] [place] [address] Phone [phone] Care Team Providers Care Reel Operator Name Role Phone Mejia Maria DO Primary Care Provider Reason for Visit * Reason Comments Medication Refill Encounter Details Date Type Department Care Team (Late st Contact Info) Description 03/11/2024 Refill Family Practice [facility] [address] [place] [address] Mejia Maria DO [address] [place] [address] Dyslipidemia Allergies Active Allergy Reactions Criticality Noted Date Comments Lisinopril Edema face/lips/tongue High 04/05/2018 documented as of this encounter (statuses as of 03/14/2024) Medications Medication Sig Dispensed Refills Start Date [...] 11 12/27/2021 Active FreeStyle Rose Marie 2 [place] Device Test blood sugars four times daily [...] hands 100 g 1 04/01/2023 Active Pen [place] 32G X 4 MM Use as directed. Use to inject insulin up to 4 times daily. 30 Each 0 05/06/2023 Active Pantoprazole Sodium 40 MG Oral Tablet Delayed Release (Protonix)Indications :Gastroesophageal reflux disease without esophagitis Take 1 Tablet [...] MOUTH EVERY MORNING 100 Capsule 2 12/29/2023 Active FreeStyle Rose Marie 2 [place] DeviceIndications:Typ e 2 diabetes mellitus with hemoglobin A1c goal of less than 8.0% ([facility]),Type 2 diabetes mellitus with polyneuropathy ([facility]),Diabetic ulcer of toe of right foot associated with type 2 diabetes mellitus, with fat layer exposed ([facility]) Test blood sugar 4 times daily 1 Each 5 01/07/2024 Active FreeStyle Rose Marie 2 SensorIndications:Typ e 2 diabetes mellitus with hemoglobin A1c goal of less than 8.0% ([facility]),Type 2 diabetes mellitus with polyneuropathy (HCC),Diabetic ulcer of toe of right foot associated with type 2 diabetes mellitus, with fat layer exposed ([facility]) Use as directed. Test blood sugar 4 times daily 1 Each 5 01/07/2024 Active Apixaban 5 MG Oral Tablet (Eliquis)Indications: PAF (paroxysmal atrial fibrillation) ([facility]) Take 1 Tablet by mouth in the morning and 1 Tablet before bedtime. 180 Tablet 3 01/29/2024 Active Finasteride 5 MG Oral Tablet (Proscar) Take 1 Tablet by mouth in the morning. 0 Active Pen [place] 32G X 4 MMIndications:Type 2 diabetes mellitus with hemoglobin A1c goal of less than 8.0% ([facility]) Use as directed. Use to inject insulin up to 4 times daily. 400 Each 3 02/08/2024 Active Metoprolol Tartrate 25 MG Oral Tablet (Lopressor)Indication s:Chronic atrial fibrillation (HCC) TAKE ONE TABLET BY MOUTH TWICE A DAY -- IN THE MORNING AND BEFORE BEDTIME 180 Tablet 1 02/20/2024 5 Active Atorvastatin Calcium 40 MG Oral Tablet (Lipitor)Indications: Dyslipidemia TAKE ONE TABLET BY MOUTH EVERY DAY 90 Tablet 1 03/14/2024 5 Active Atorvastatin Calcium 40 MG Oral Tablet (Lipitor)Indications: Dyslipidemia TAKE ONE TABLET BY MOUTH EVERY DAY 90 Tablet 1 08/23/2023 4 Discontinu ed(Refill) documented as of this encounter (statuses as of 03/14/2024) Active Problems Problem Noted Date Diagnosed Date [...] with fat layer exposed 01/09/2022 Atherosclerosis of [place] co 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 angina pectoris 01/09/2022 [...] as of this encounter (statuses as of 03/14/2024) Resolved Problems Problem Noted Date Diagnosed Date Resolved Date Heart failure 06/05/2022 01/20/2023 Puncture wound of right foot 05/26/2022 01/20/2023 Overview: With associated cellulitis. Inpt treatment 05/16-05/18 Last Assessment & Plan: Healing well Going to wound care Blistering of skin 04/25/2022 Last Assessment & [...] as of this encounter (statuses as of 03/14/2024) Immunizations Name Administration Dates Next Due COVID-19 [...] Telephone Encounter - Mejia Maria DO - 03/14/2024 7:58 AM EDT Signed Prescriptions: Disp Refills Atorvastatin Calcium 40 MG Oral Tablet (Li*90 Tab*1 Sig: TAKE ONE TABLET BY MOUTH EVERY DAYAuthorizing Provider: MEJIA MARIA * Telephone Encounter - Mejia Maria DO - 03/14/2024 7:58 AM EDT Signed Prescriptions: Disp Refills Atorvastatin Calcium 40 MG Oral Tablet (Li*90 Tab*1 Sig: TAKE ONE TABLET BY MOUTH EVERY DAY Authorizing Provider: MEJIA MARIA * Telephone Encounter - Chanell Chaney LPN - 03/11/2024 4:58 PM EDT Pending Prescriptions: Disp Refills Atorvastatin Calcium 40 MG Oral Tablet (L*90 Tab*1 Sig: TAKE ONE TABLET BY MOUTH EVERY DAY Last Visit: 02/08/2024 (in office), Visit date not found (telemedicine) Next Visit: 10/25/2024 Last date the medication was ordered: 08/23/2023 Patient Active Problem List Diagnosis Code Mixed conductive and sensorineural hearing loss of right ear with restricted hearing of left ear H90.A31 Type 2 diabetes mellitus with hemoglobin A1c goal of less than 8.0% ([facility]) E11.9 Dyslipidemia E78.5 HTN, goal below 130/80 I10 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, bilateral M21.961, M21.962 Type 2 diabetes mellitus with polyneuropathy ([facility]) E11.42 Tympanic membrane perforation, 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, 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, with fat layer exposed ([facility]) E11.621, L97.512 Atherosclerosis of [place] co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 angina pectoris I25.10 Hoarding behavior F42.3 Paroxysmal atrial fibrillation ([facility]) I48.0 Moderate aortic stenosis I35.0 Overweight (BMI 25.0-29.9) E66.3 Unsteady gait when walking R26.81 Cellulitis of toe of left foot L03.032 Nonrheumatic aortic valve stenosis I35.0 Chronic heart failure with preserved ejection fraction ([facility]) I50.32 Hypertensive heart disease with chronic diastolic congestive heart failure ([facility]) I11.0, I50.32 Medical home patient encounter Z00.8 Encounter for long-term (current) insulin use ([facility]) Z79.4 Chronic kidney disease, stage 3a ([facility]) N18.31 Chronic kidney disease, stage 3b ([facility]) N18.32 Labs: Lab Results Component Value Date/Time CREATININE - [facility] 1.7 (H) 02/08/2024 04:17 PM CREATININE - [facility] 1.1 06/01/2020 03:18 PM CREATININE, RANDOM URINE - [facility] 33 01/27/2023 11:20 AM CREATININE, RANDOM URINE - [facility] 113 03/13/2020 01:44 PM CREATININE-OUTSIDE LAB 1.07 03/07/2023 07:26 PM Lab Results Component Value Date/Time POTASSIUM - [facility] 4.7 02/08/2024 04:17 PM POTASSIUM - [facility] 4.5 06/01/2020 03:18 PM POTASSIUM-OUTSIDE LAB 4.6 03/07/2023 07:26 PM Lab Results Component Value Date/Time TSH - [facility] 3.20 10/23/2023 03:27 PM TSH - [facility] 2.18 11/01/2008 10:02 AM TSH - OUTSIDE LAB 2.020 11/08/2021 12:00 AM Lab Results Component Value Date/Time LDL CHOLESTEROL (CALCULATED) - [facility] 56 05/19/2023 03:25 PM LDL CHOLESTEROL (CALCULATED) - [facility] 56 09/01/2022 02:42 PM LDL CHOLESTEROL (CALCULATED) - [facility] 85 06/04/2016 01:48 PM LDL CHOLESTEROL (CALCULATED) - [facility] 110 02/13/2015 09:41 AM LDL CHOLESTEROL (DIRECT MEASURE) - [facility] 53 01/11/2018 11:20 AM LDL CHOLESTEROL (DIRECT MEASURE) - [facility] 54 09/10/2017 11:28 AM Lab Results Component Value Date/Time ALT - [facility] 16 02/08/2024 04:17 PM ALT - [facility] 8 (L) 01/11/2018 11:20 AM Hemoglobin AIC Results: Lab Results Component Value Date/Time HEMOGLOBIN A1C - [facility] 10.5 (H) 02/08/2024 04:17 PM HEMOGLOBIN A1C - [facility] 9.4 (H) 05/19/2023 03:25 PM HEMOGLOBIN A1C - [facility] 9.2 (H) 01/27/2023 11:01 AM HEMOGLOBIN A1C - [facility] 7.4 (H) 03/13/2020 09:26 AM HEMOGLOBIN A1C - [facility] 11.5 (H) 11/16/2019 08:37 AM HEMOGLOBIN A1C - [facility] 14.3 (H) 12/13/2018 03:03 PM documented in this encounter Plan of Treatment Upcoming Encounters Date Type Department Care Team (Late st Contact Info) Description 04/11/2024 2:00 PM EDT Office Visit Podiatry [facility] [address] [facility] [place] [address] Kylie Burroughs DPM [address] [place] [address] 05/20/2024 5:00 PM EDT Office [address], [address] [address] Jacek Calderón MD [address] [place] [address] 06/10/2024 3:00 PM EDT Office Visit Pharmacy, [facility] [address] [place] [address] [facility] [address] [place] [address] 07/27/2024 3:00 PM EDT Office Visit Cardiology, [facility] [address] [place] [address] Shelley Russell PA-C [address] [place] [address] 10/25/2024 1:20 PM EST Office Visit Family Practice [facility] [address] [place] [address] Mejia Maria DO [address] [place] [address] Scheduled Procedures Name Priority Associated Diagnoses Date/Ti [...] Additional history exists CKD PHOS USE SMARTSET 19874 08/26/2024 08/26/2023 CKD HGB USE SMARTSET 07242 10/23/202410/23, 08/26/2023, 08/26/2023, Additional history exists Diabetic [...] Agents on File Name Relationship Healthcare Agent [facility] p Communication Farhana Sebastian Spouse Health Care Agent Care Teams Reel Operator Relationship Specialty Start Date End Date Mejia Maria DO [address] [place] [address] PCP - General Family Medicine 06/07/18 documented as of this encounter
--- OUTSIDE RECORDS SUMMARY | 2024-04-08 07:53 | External Medical Summary | Summary of Care ---
Author Name Unknown Organization [facility] Address [address] [facility] [address] Phone [phone] Care Team Providers Care Aircraft Assembler Name Role Phone Mejia Maria DO Primary Care Provider Reason for Visit * Reason Comments Medication Refill Encounter Details Date Type Department Care Team (Late st Contact Info) Description 03/11/2024 Refill Family Practice [facility] [address] [place] [id number] Mejia Maria DO [address] [place] [id number] Allergies Active Allergy Reactions Criticality Noted Date [...] 0.3 MLIndications:Type 2 diabetes mellitus with polyneuropathy ([facility]),Type 2 diabetes mellitus with hemoglobin A1c goal of less than 8.0% ([facility]) Use up to 4 x a day for insulin dosing E11.9 3 Each 1 09/05/2021 Active FreeStyle Rose Marie 2 Sensor Test blood sugars four times daily 2 Each 11 12/27/2021 Active FreeStyle Rose Marie 2 Durand Device Test blood sugars four times daily [...] hands 100 g 1 04/01/2023 Active Pen [place] 32G X 4 MM Use as directed. [...] 2 12/29/2023 Active FreeStyle Rose Marie 2 Durand DeviceIndications:Typ e 2 diabetes mellitus with hemoglobin A1c goal of less than 8.0% ([facility]),Type 2 diabetes mellitus with polyneuropathy ([facility]),Diabetic ulcer of toe of right foot associated with type 2 diabetes mellitus, with fat layer exposed ([facility]) Test blood sugar 4 times daily 1 Each 5 01/07/2024 Active FreeStyle Rose Marie 2 SensorIndications:Typ e 2 diabetes mellitus with hemoglobin A1c goal of less than 8.0% ([facility]),Type 2 diabetes mellitus with polyneuropathy ([facility]),Diabetic ulcer of toe of right foot associated with type 2 diabetes mellitus, with fat layer exposed ([facility]) Use as directed. Test blood sugar 4 times daily 1 Each 5 01/07/2024 Active Apixaban 5 MG Oral Tablet (Eliquis)Indications: PAF (paroxysmal atrial fibrillation) ([facility]) Take 1 Tablet by mouth in the morning and 1 Tablet before bedtime. 180 Tablet 3 01/29/2024 Active Finasteride 5 MG Oral Tablet (Proscar) Take 1 Tablet by mouth in the morning. 0 Active Pen [place] 32G X 4 MMIndications:Type 2 diabetes mellitus with hemoglobin A1c goal of less than 8.0% ([facility]) Use as directed. Use to inject insulin up to 4 times daily. 400 Each 3 02/08/2024 Active Metoprolol Tartrate 25 MG Oral Tablet (Lopressor)Indication s:Chronic atrial fibrillation ([facility]) TAKE ONE TABLET BY MOUTH TWICE A DAY -- IN THE MORNING AND BEFORE BEDTIME 180 Tablet 1 02/20/2024 5 Active FreeStyle Rose Marie 2 Durand Device Test blood sugar 4 times daily 1 Each 5 03/14/2024 Active FreeStyle Rose Marie 2 Sensor Use as directed. Test blood sugar 4 times daily 1 Each 5 03/14/2024 Active Atorvastatin Calcium 40 MG Oral Tablet [...] with fat layer exposed 01/09/2022 Atherosclerosis of [place] co 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 angina pectoris 01/09/2022 [...] Encounter - Mejia Maria DO - 03/14/2024 7:59 AM EDT Signed Prescriptions: Disp Refills FreeStyle Rose Marie 2 [place] Device 1 Each 5 Sig: Test blood sugar 4 times daily Authorizing Provider: MEJIA MARIA FreeStyle Rose Marie 2 Sensor 1 Each 5 Sig: Use as directed. Test blood sugar 4 times daily Authorizing Provider: MEJIA MARIA * Telephone Encounter - Mejia Maria DO - 03/14/2024 7:58 AM EDT Signed Prescriptions: Disp Refills FreeStyle Rose Marie 2 [place] Device 1 Each 5 Sig: Test blood sugar 4times dailyAuthorizing Provider: MEJIA MARIA FreeStyle Rose Marie 2 Sensor 1 Each 5 Sig: Use as directed. Test blood sugar 4 times dailyAuthorizing Provider: MEJIA MARIA documented in this encounter Plan of Treatment Upcoming Encounters Date Type Department Care Team (Late st Contact Info) Description 04/11/2024 2:00 PM EDT Office Visit Podiatry [address] [place] [address] Kylie Burroughs, DPM [address] [facility] [place], [place] [address] 05/20/2024 5:00 PM EDT Office Visit Nephrology, [facility] [address] [place] [address] Jacek Calderón MD [facility] [place] [address] 06/10/2024 3:00 PM EDT Office Visit Pharmacy, [facility] [address] [place] [address] [address] [facility] [address] [place] [phone] 07/27/2024 3:00 PM EDT Office Visit Cardiology, [facility] [address] [place] [address] Shelley Russell PA-C [address] [place] [id number] 10/25/2024 1:20 PM EST Office Visit Family Practice [facility] [address] [place] [address] Mejia Maria DO [address] [place] [address] Scheduled Procedures Name Priority Associated Diagnoses Date/Ti me COLONOSCOPY FLEXIBLE PROXIMA L DIAGNOSTIC Recall Encounter for screening colonoscopy Health Maintenance Due Date Last Done Comments COVID-19 Vaccine ( season) 2023 11/17/2022, 02/25/2022, 03/24/2021, Additional history exists Diabetic Eye Exam 09/01/2023 09/01/2022, , 12/15/2019, Additional history exists Albumin/Creatinine Ratio 01/28/20242 023, 06/05/2022, 03/13/2020, Additional history exists Depression Screening 02/19/2024 02/18/2023 GFR 08/09/2024 02/08/2024, 10/03, 08/26/2023, Additional history exists HbA1c 08/09/2024 02/08/2024, 05/02, 01/27/2023, Additional history exists CKD PHOS USE SMARTSET 16974 08/26/2024 08/26/2023 CKD HGB USE SMARTSET 66467 10/23/202410/23, 08/26/2023, 08/26/2023, Additional history exists Diabetic [...] Sebastian Spouse Health Care Agent Care Teams Aircraft Assembler Relationship Specialty Start Date End Date Mejia Maria DO [address] [place] [address] PCP - General Family Medicine 06/07/18 documented as of this encounter
[2024-04-08] MEDS: FINASTERIDE 5 MG TAB PO SCH (08:46)
[2024-04-08] MEDS: TAMSULOSIN HCL 0.4 MG CAP PO SCH (08:46)
[2024-04-08] MEDS: PANTOprazole 40 MG TAB PO SCH (08:46)
[2024-04-08] MEDS: ATORVASTATIN 40 MG TAB PO SCH (08:46)
--- NOTE | 2024-04-08 10:45 | Hospitalist Progress Note ---
Date of Service April 08, 2024 Assessment & Plan (1) Bilateral lower leg cellulitis: (2) Open wound of both lower extremities: (3) Wound myiasis: (4) Otitis externa: (5) Heart failure with preserved ejection fraction: (6) Moderate aortic stenosis: (7) DM type 2 (diabetes mellitus, type 2): (8) Paroxysmal atrial fibrillation: (9) Chronic indwelling Yee catheter: (10) Diabetic peripheral neuropathy: Plan: This is a 77-year-old male who has a significant past medical history of medication noncompliance, T2DM, PAF anticoagulated on Eliquis, chronic HFpEF, moderate to severe aortic stenosis, HTN, HLD and BPH who presents to ED / "worms coming out of my left ear and pain." Bilateral lower extremity cellulitis Open wounds of both lower extremities in setting of diabetic peripheral neuropathy and venous stasis Wound myiasis Bilateral lower extremity edema IV daptomycin and cefepime Q8H started on 04/07. Switch to keflex PO x 10-14d per ID. MRSA swab neg, will dc daptomycin Arterial Doppler 04/07 shows severe stenosis-- vascular consultation for revascularization with wounds Venous doppler 04/07 neg for dvt Consult podiatry due to the multiple wounds on feet/heel, their team notes would like vascular consult prior to surgical debridement if warranted, wound care consulted - appreciate recs Otitis Externa, left Maggot infestation of L ear ENT on board IV cefepime covering for pseudomonas deescalated to keflex on 04/08 CT sinus reveals soft tissue swelling, No abscess S/p OR washout on 04/07 by ENT - appreciate recs Chronic Diastolic CHF Moderate to Severe Aortic Stenosis bilateral lower extremity cellulitis - Echo repeated 04/07: EF 60-65 % with left atrium mildly dilated, aortiv valve severely calcified, borderline severe to aortic stenosis is present, compared to previous study in 07/24/23 the severity of aortic stenosis has progressed. - swelling in setting of multiple wounds/cellulitis vs decompensated HF - Cards consult cancelled per attending after discussing with Cardiology team - well known to their team. Aortic stenosis is not new. Patient to follow up with Cardiology. - HR noted to drop to 40s afternoon 04/08, consider reduction of metoprolol per attending Lactic acidosis - Resolved - Suspect this is due to underlying infection with elevated white count--does not meet sepsis criteria repeat lactic improved T2DM, uncontrolled with hyperglycemia and neuropathy pt noncompliant with meds a1c outpt in February 09.5 lantus/novolg per protocol received IV regular insulin in ED Hyponatremia, pseudo in setting of hyperglycemia - Improved to 132, monitor PAF chronic stable continue eliquis, metoprolol CKD-3 cr stable, baseline ~ 1.7 avoid nephrotoxic agents BPH chronic indwelling yee yee was removed and reinserted in ED due to it sticking to leg he has wound in area of previous leg attachment [place] [facility] obtain UA Pt states yee has been chronic for several months and is exchanged routinely - last exchanged 04/07 in ER Medication noncompliance per pt hasn't been taking insulin as she keeps in at her appt and pt hasn't asked for it suspect he hasn't been compliant with other meds as well Dispo: pt with difficult social situation. He and his are . lives with daughter in [place]. Up until 1 month ago pt was staying with Sister, but since then had gone to down to his property where there is no running water and he has been sleeping in a van and alternating in a tree house with propane heater. Office of ageing needs involved. DVT ppx: Eliquis FULL CODE Lines: PIV 1 FEN/GI: HH/DM diet PCP: James Maria A total of 50 minutes was spent coordinating, documenting, and providing care for this patient excluding time spent in the performance of separately billed services. This included personally viewing all current laboratories and imaging studies, medication reconciliation, outpatient chart review, and discussion with specialists. Admission and Anticipated Discharge Date Admission Date: April 07, 2024 Supervising Physician Co-Signing Physician Notes Patient seen and examined Significant hearing deficit Communicated with patient by writing out questions. Has chronic hearing deficits Reports left ear pain a few days ago Denies any pain/symptoms at this time Exam notable for multiple wounds with scabs in legs, edema, +murmur ENT removed maggot from left ear yesterday Cultures negative so far Deescalate abx to keflex per ID Arterial dopplers noted PAD. Vasc consulted Podiatry eval noted CM working to get more info on living situation/discharge planning Patient reviewed with Advanced Practitioner Agree with Advanced Practitioner's evaluation, findings and plans and take full responsibility Subjective Pt seen and examined - reports feeling well overall. Denies acute complaints. He is so hard of hearing that we communicated through use of pad and paper. He has been living in a tree stand 32 ft [place] air [place] property, his van, and occasionally stays at his brother or sisters house. He notes primarily has been using heat via propane heater in the tree stand, and has fresh drinking water in bottles. He does not have running water, but instead uses wet wipes to clean himself, and states there is a [place] nearby that he occasionally gets in. We discussed using a basin with clean water and soap for cleanliness in the future, and he agrees. Pt states he has been drinking 2- 3 16 oz beers sometimes 3-4 times per week. He notes "its cheaper to by beer than water". Although denies hx of dependence or withdrawal. Denies fever, chills, sweats. Pt notes that he does not normally wear long pants in the [place], and occasionally steps out of his slip on shoes outside, and doesn't even realize it due to severe neuropathy. We discussed getting a pair of sneakers that tie on. He plans to have sister help get him a pair before he is discharged. Pt also notes that chronic yee has been in place for several months, leaks occasionally at the bag level and gets his shoes wet, so this is why doesn't currently have sneakers. He wants to keep the yee catheter because prior to this was getting up multiple times in the night due to urinary frequency. He finds the catheter convenient. Physical Exam Physical Exam: General: awake, alert, no apparent distress, very hard of hearing Head: Normocephalic, atraumatic ENT: PERRL, EOMI, no pharyngeal exudate, mucous membranes moist Chest: Clear to auscultation, on room air, no adventitious breath sounds Cardiac: Regular rate and rhythm, + loud systolic ejection murmur, grade III/, no JVD, normal peripheral pulses, good capillary refill Abdominal: NABS x 4 quadrants, soft, nondistended, nontender to palpation, no rebound or guarding Extremities: Multiple bandaged lower extremity wounds on legs and feet bilaterally, no peripheral edema or erythema, calfs nontender to palpation Psych: Normal mood and affect Neuro: AAO x 3, strength intact bilaterally and rated 5/5, no motor deficits, speech is clear, no peripheral sensory deficits Results & Data Results & Data Vital Signs (Past 12 Hours) Vital Signs Temp Pulse Pulse Resp BP Pulse Ox O2 Del Method 04/08/24 09:39 66 04/08/24 08:49 Room Air 04/08/24 07:33 36.8 C 68 18 147/99 H 97 Room Air 04/08/24 03:02 36.5 C 65 18 118/68 95 Room Air 04/07/24 23:14 37.0 C 63 18 131/68 96 Room Air Laboratory Results 04/07/24 14:20 Urine Culture - Pending Urine,Straight Cath 04/07/24 12:21 Aerobic Blood Culture - Pending Blood Anaerobic Blood Culture - Pending 04/07/24 12:00 Aerobic Blood Culture - Pending Blood Anaerobic Blood Culture - Pending 04/08/24 04/08/24 04/08/24 08:04 08:04 05:20 WBC 11.21 H RBC 4.08 L Hgb 11.8 L Hct 34.6 L MCV 84.8 MCH 28.9 MCHC 34.1 RDW Std Deviation 36.8 RDW Coeff of Scott 12.1 Plt Count 270 MPV 10.3 Immature Gran % (Auto) 0.3 Neut % (Auto) 63.7 Lymph % (Auto) 24.7 [place] % (Auto) 8.3 Eos % (Auto) 2.4 Baso % (Auto) 0.6 Neut # (Auto) 7.14 H Lymph # (Auto) 2.77 [place] # (Auto) 0.93 H Eos # (Auto) 0.27 Baso # (Auto) 0.07 Immature Gran # (Auto) 0.03 Sodium 132 L Potassium 4.1 Chloride 100 Carbon Dioxide 28 Anion Gap 4 BUN 31 H Creatinine 1.63 H Est Cr Clr Drug Dosing 37.2 Est GFR ( Amer) 46.1 Est GFR (Non-Af Amer) 39.8 BUN/Creatinine Ratio 19.0 Glucose 200 H POC Glucose 225 H 225 H Lactate Calcium 8.0 L Magnesium 1.9 Total Bilirubin 0.4 AST 9 L ALT 7 Alkaline Phosphatase 88 Total Protein 6.5 Albumin 2.7 L Globulin 3.8 Albumin/Globulin Ratio 0.7 L Procalcitonin Urine Color Urine Appearance Urine pH Ur Specific [place] Urine Protein Urine Glucose (UA) Urine Ketones Urine Blood Urine Nitrite Urine Bilirubin Urine Urobilinogen Ur Leukocyte Esterase Urine WBC (Auto) Urine RBC (Auto) U Hyaline Cast (Auto) U Epithel Cells (Auto) Urine Bacteria (Auto) Nasal Screen MRSA (PCR) 04/08/24 04/07/24 04/07/24 00:09 22:00 21:59 WBC RBC Hgb Hct MCV MCH MCHC RDW Std Deviation RDW Coeff of Scott Plt Count MPV Immature Gran % (Auto) Neut % (Auto) Lymph % (Auto) [place] % (Auto) Eos % (Auto) Baso % (Auto) Neut # (Auto) Lymph # (Auto) [place] # (Auto) Eos # (Auto) Baso # (Auto) Immature Gran # (Auto) Sodium Potassium Chloride Carbon Dioxide Anion Gap BUN Creatinine Est Cr Clr Drug Dosing Est GFR ( Amer) Est GFR (Non-Af Amer) BUN/Creatinine Ratio Glucose POC Glucose 249 H 380 H* 395 H* Lactate Calcium Magnesium Total Bilirubin AST ALT Alkaline Phosphatase Total Protein Albumin Globulin Albumin/Globulin Ratio Procalcitonin Urine Color Urine Appearance Urine pH Ur Specific [place] Urine Protein Urine Glucose (UA) Urine Ketones Urine Blood Urine Nitrite Urine Bilirubin Urine Urobilinogen Ur Leukocyte Esterase Urine WBC (Auto) Urine RBC (Auto) U Hyaline Cast (Auto) U Epithel Cells (Auto) Urine Bacteria (Auto) Nasal Screen MRSA (PCR) 04/07/24 04/07/24 04/07/24 20:39 19:24 17:48 WBC RBC Hgb Hct MCV MCH MCHC RDW Std Deviation RDW Coeff of Scott Plt Count MPV Immature Gran % (Auto) Neut % (Auto) Lymph % (Auto) [place] % (Auto) Eos % (Auto) Baso % (Auto) Neut # (Auto) Lymph # (Auto) [place] # (Auto) Eos # (Auto) Baso # (Auto) Immature Gran # (Auto) Sodium Potassium Chloride Carbon Dioxide Anion Gap BUN Creatinine Est Cr Clr Drug Dosing Est GFR ( Amer) Est GFR (Non-Af Amer) BUN/Creatinine Ratio Glucose POC Glucose 292 H 272 H Lactate Calcium Magnesium 1.9 Total Bilirubin AST ALT Alkaline Phosphatase Total Protein Albumin Globulin Albumin/Globulin Ratio Procalcitonin Urine Color Urine Appearance Urine pH Ur Specific [place] Urine Protein Urine Glucose (UA) Urine Ketones Urine Blood Urine Nitrite Urine Bilirubin Urine Urobilinogen Ur Leukocyte Esterase Urine WBC (Auto) Urine RBC (Auto) U Hyaline Cast (Auto) U Epithel Cells (Auto) Urine Bacteria (Auto) Nasal Screen MRSA (PCR) 04/07/24 04/07/24 04/07/24 14:28 14:20 14:04 WBC RBC Hgb Hct MCV MCH MCHC RDW Std Deviation RDW Coeff of Scott Plt Count MPV Immature Gran % (Auto) Neut % (Auto) Lymph % (Auto) [place] % (Auto) Eos % (Auto) Baso % (Auto) Neut # (Auto) Lymph # (Auto) [place] # (Auto) Eos # (Auto) Baso # (Auto) Immature Gran # (Auto) Sodium Potassium Chloride Carbon Dioxide Anion Gap BUN Creatinine Est Cr Clr Drug Dosing Est GFR ( Amer) Est GFR (Non-Af Amer) BUN/Creatinine Ratio Glucose POC Glucose 330 H* Lactate 1.9 Calcium Magnesium Total Bilirubin AST ALT Alkaline Phosphatase Total Protein Albumin Globulin Albumin/Globulin Ratio Procalcitonin Urine Color Yellow Urine Appearance Clear Urine pH 7.5 Ur Specific [place] 1.024 Urine Protein Trace H Urine Glucose (UA) 3+ H Urine Ketones Negative Urine Blood Trace H Urine Nitrite Negative Urine Bilirubin Negative Urine Urobilinogen Negative Ur Leukocyte Esterase 1+ H Urine WBC (Auto) >50 H Urine RBC (Auto) 0-2 U Hyaline Cast (Auto) 3-5 H U Epithel Cells (Auto) 0-2 Urine Bacteria (Auto) None Seen Nasal Screen MRSA (PCR) Negative 04/07/24 04/07/24 12:21 12:00 WBC 14.57 H RBC 4.69 L Hgb 13.4 L Hct 40.0 L MCV 85.3 MCH 28.6 MCHC 33.5 RDW Std Deviation 36.9 RDW Coeff of Scott 12.0 Plt Count 320 MPV 10.6 Immature Gran % (Auto) 0.3 Neut % (Auto) 78.8 Lymph % (Auto) 13.0 [place] % (Auto) 6.0 Eos % (Auto) 1.4 Baso % (Auto) 0.5 Neut # (Auto) 11.49 H Lymph # (Auto) 1.90 [place] # (Auto) 0.87 H Eos # (Auto) 0.20 Baso # (Auto) 0.07 Immature Gran # (Auto) 0.04 Sodium 128 L Potassium 4.7 Chloride 92 L Carbon Dioxide 29 Anion Gap 7 BUN 31 H Creatinine 1.68 H Est Cr Clr Drug Dosing 36.1 Est GFR ( Amer) 44.4 Est GFR (Non-Af Amer) 38.3 BUN/Creatinine Ratio 18.5 Glucose 534 H* POC Glucose Lactate 2.6 H* Calcium 8.7 Magnesium Cancelled Total Bilirubin 0.6 AST 11 L ALT 9 Alkaline Phosphatase 136 H Total Protein 7.7 Albumin 3.4 Globulin 4.3 H Albumin/Globulin Ratio 0.8 L Procalcitonin 0.08 Urine Color Urine Appearance Urine pH Ur Specific [place] Urine Protein Urine Glucose (UA) Urine Ketones Urine Blood Urine Nitrite Urine Bilirubin Urine Urobilinogen Ur Leukocyte Esterase Urine WBC (Auto) Urine RBC (Auto) U Hyaline Cast (Auto) U Epithel Cells (Auto) Urine Bacteria (Auto) Nasal Screen MRSA (PCR)
--- NOTE | 2024-04-08 11:46 | Infectious Disease Consult ---
Date of Service April 08, 2024 Telehealth Information I performed this visit using a real-time telehealth connection between my location and the patients location ([facility]). After connecting through interactive tele-video, patient was identified by name and date of and/or wristband check.Patient (or authorized healthcare account executive sales representative) was informed that this was a telemedicine visit and it was being conducted confidentially over secure lines. My office door was closed and no one else was present in the room with me.Patient (or authorized healthcare account executive sales representative) provided consent to proceed with the visit, expressed an understanding of privacy and security of the telemedicine visit, and gave permission to have a hospital account executive sales representative in the room in order to assist with the visit and to conduct portions of the visit, as needed. I informed the patient (or authorized healthcare account executive sales representative) that I reviewed their record and presented the opportunity for them to ask any questions regarding the visit today. The patient agreed to participate. Assessment & Plan (1) Charcot's joint of right foot: Plan: wound care to follow (2) Ulcer of left foot, limited to breakdown of skin: Plan: wound care to follow (3) Otitis externa of left ear: Plan: Maggots have been removed (4) Cellulitis: Plan: Recommend keflex for 10-14 days (5) Open wound of both lower extremities: Plan: Wound care to follow (6) Wound myiasis: (7) Bilateral lower leg cellulitis: Plan Patient who p/w maggots in his left ear found to have cellulitis and ulcers to both feet .He has been evaluated by podiatry and they have recommend VS evaluation .I would recommend discontinuing cefepime and treating him with keflex for 10-14 days .Thank you for allowing us to participate in the care of this patient ID will sign off History of Present Illness History of Present Illness 77-year-old male PMHx of medication noncompliance, T2DM, PAF anticoagulated on Eliquis, chronic HFpEF, moderate to severe aortic stenosis, HTN, HLD and BPH who presents to ED 2/2 "worms coming out of my left ear and pain." He had some maggots removed in the ER and then was taken to the OR for surgical removal .He was started on cefepime and daptomycin and when his MRSA PCR was negative the daptomycin was discontinued and he is currently on cefepime for "pseudomonal coverage" for his left ear and cellulitis of his lower extremities Allergies Allergy/AdvReac Type Severity Reaction Status Date / Time lisinopril Allergy Severe Swelling Verified 04/07/24 15:49 of Face/Lips/Tongue Home Medications Medication Instructions Recorded Confirmed Type apixaban 5 mg tablet (Eliquis) 5 mg PO BID #60 tabs 08/18/23 04/07/24 Rx atorvastatin 40 mg tablet 40 mg PO QAM #30 tabs 08/18/23 04/07/24 Rx finasteride 5 mg tablet 5 mg PO DAILY #30 tabs 08/18/23 04/07/24 Rx insulin aspart U-100 100 unit/mL 5 unit (0.05 mL) subcut TIDM #15 mL 08/18/23 04/07/24 Rx (3 mL) subcutaneous pen (Novolog FlexPen U-100 Insulin aspart) metoprolol tartrate 25 mg tablet 25 mg PO BID #60 tabs 08/18/23 04/07/24 Rx pantoprazole 40 mg tablet,delayed 40 mg PO DAILY #30 tabs 08/18/23 04/07/24 Rx release tamsulosin 0.4 mg capsule 0.4 mg PO DAILY #30 caps 08/18/23 04/07/24 Rx insulin glargine 100 unit/mL (3 22 unit subcut HS 04/07/24 04/07/24 History mL) subcutaneous pen (Lantus Solostar U-100 Insulin) Patient History Medical History (Updated 04/08/24 @ 12:19 by John Buitrago DPM) Maggot infestation Catheter-associated urinary tract infection Gram-negative bacteremia Acute electrocardiogram changes Elevated troponin CESAR (acute kidney injury) Metabolic encephalopathy High anion gap metabolic acidosis DKA (diabetic ketoacidosis) Admitted to intensive care unit Acute hypokalemia Acute hyperglycemia Puncture wound of foot, right Right foot infection Bacteremia D-dimer, elevated Heart failure with preserved ejection fraction Hypokalemia HTN (hypertension) Moderate aortic stenosis Premature atrial complexes Paroxysmal atrial fibrillation Abnormal urinalysis DVT prophylaxis Volume overload Cellulitis DM type 2 (diabetes mellitus, type 2) Leukocytosis Bilateral edema of lower extremity Elevated brain natriuretic peptide (BNP) level Atrial fibrillation with rapid ventricular response Dyspnea Surgical History History of ear surgery age 19, mastoid H/O shoulder surgery S/P foot surgery, left Family History Brother Diabetes Social History Smoking Status: Former smoker Tobacco Type: Cigarettes Second Hand Exposure: No; Do You Dip or Chew Tobacco: No; Hx Alcohol Use: Yes Alcohol type: beer Hx Substance Use: No Preferred Language: Spanish Communication Ability: Impaired Communication Ability Comment: VERY [place]. does well with writing things out to him [employer] Lieutenant Required: No Beliefs That Will Affect Care: None marital status: Current Living Situation: Alone and Homeless Current Living Situation Comment: living in van most of time, sometime with daughter How many Children do You have: 3 Feels Safe at Home: Yes Assistive Devices: Cane, Denture - Upper, Denture - Lower and Glasses Review of Systems Hard of hearing Physical Exam Patient awake alert responds to simple questions and commands .He is in no respiratory distress Results & Data Vital Signs (Past 12 Hours) Vital Signs Temp Pulse Pulse Resp BP Pulse Ox O2 Del Method 04/08/24 11:26 37.0 C 48 L 18 136/80 96 Room Air 04/08/24 09:39 66 04/08/24 08:49 Room Air 04/08/24 07:33 36.8 C 68 18 147/99 H 97 Room Air 04/08/24 03:02 36.5 C 65 18 118/68 95 Room Air Laboratory Results WBC [id number] (4) Cellulitis Site of cellulitis: unspecified site Qualified Code(s): L03.90 - Cellulitis, unspecified
--- NOTE | 2024-04-08 12:21 | Podiatry Consultation ---
Date of Consultation April 08, 2024 Assessment & Plan (1) Bilateral lower leg cellulitis: (2) Ulcer of left foot, limited to breakdown of skin: (3) Open wound of left heel: Encounter type: initial encounter Qualified Code(s): S91.302A - Unspecified open wound, left foot, initial encounter (4) Diabetic ulcer of right foot associated with diabetes mellitus due to underlying condition: Diabetic foot ulcer location: heel Non-pressure ulcer stage: limited to breakdown of skin Qualified Code(s): E08.621 - Diabetes mellitus due to underlying condition with foot ulcer; L97.411 - Non-pressure chronic ulcer of right heel and midfoot limited to breakdown of skin (5) Charcot's joint of right foot: Plan Patient seen at bedside. He is hard of hearing but I communicated utilizing a text jackie on the computer. I did discuss that he could benefit from surgical intervention or surgical debridement, however, with his significant arterial disease on Doppler exam, he would benefit from a vascular consult prior to any surgical intervention. The wounds do appear superficial and may heal with wound care alone. Wound care consult could be considered as well. Further, he will benefit from IV and/or oral antibiotics for this lower extremity cellulitis. None of these wounds probe deeply and do not require urgent surgical debridement. We will continue to follow him for now. Would recommend Aquacel dressing to the left heel and likely Santyl ointment to the right foot, though if wound care is consulted would defer to them as well. Will continue to follow on our end. He is likely to make his biggest improvement with the use of antibiotics. History of Present Illness Reason for Consultation: B/L lower extremity cellulitis Attending Physician: Ave Rjoas MD History of Present Illness Patient seen at bedside. He is hard of hearing and difficult to converse with, though I was able to communicate with him through typing on the computer screen. He states he has no problems with his feet and believes he had surgery on them in the last couple of days. He has not a great historian though on chart review he seems to have presented with worsening hygiene and signs of infection. Specifically, he had a maggot infestation in his ear that was debrided in the operating room. He denies any systemic signs of infection at this time. He also denies any recent trauma or injury to the feet. Allergies Allergy/AdvReac Type Severity Reaction Status Date / Time lisinopril Allergy Severe Swelling Verified 04/07/24 15:49 of Face/Lips/Tongue Home Medications Medication Instructions Recorded Confirmed Type apixaban 5 mg tablet (Eliquis) 5 mg PO BID #60 tabs 08/18/23 04/07/24 Rx atorvastatin 40 mg tablet 40 mg PO QAM #30 tabs 08/18/23 04/07/24 Rx finasteride 5 mg tablet 5 mg PO DAILY #30 tabs 08/18/23 04/07/24 Rx insulin aspart U-100 100 unit/mL 5 unit (0.05 mL) subcut TIDM #15 mL 08/18/23 04/07/24 Rx (3 mL) subcutaneous pen (Novolog FlexPen U-100 Insulin aspart) metoprolol tartrate 25 mg tablet 25 mg PO BID #60 tabs 08/18/23 04/07/24 Rx pantoprazole 40 mg tablet,delayed 40 mg PO DAILY #30 tabs 08/18/23 04/07/24 Rx release tamsulosin 0.4 mg capsule 0.4 mg PO DAILY #30 caps 08/18/23 04/07/24 Rx insulin glargine 100 unit/mL (3 22 unit subcut HS 04/07/24 04/07/24 History mL) subcutaneous pen (Lantus Solostar U-100 Insulin) Patient History Medical History Maggot infestation Catheter-associated urinary tract infection Gram-negative bacteremia Acute electrocardiogram changes Elevated troponin CESAR (acute kidney injury) Metabolic encephalopathy High anion gap metabolic acidosis DKA (diabetic ketoacidosis) Admitted to intensive care unit Acute hypokalemia Acute hyperglycemia Puncture wound of foot, right Right foot infection Bacteremia D-dimer, elevated Heart failure with preserved ejection fraction Hypokalemia HTN (hypertension) Moderate aortic stenosis Premature atrial complexes Paroxysmal atrial fibrillation Abnormal urinalysis DVT prophylaxis Volume overload Cellulitis DM type 2 (diabetes mellitus, type 2) Leukocytosis Bilateral edema of lower extremity Elevated brain natriuretic peptide (BNP) level Atrial fibrillation with rapid ventricular response Dyspnea Surgical History History of ear surgery age 19, mastoid H/O shoulder surgery S/P foot surgery, left Family History Brother Diabetes Social History Smoking Status: Former smoker Tobacco Type: Cigarettes Second Hand Exposure: No; Do You Dip or Chew Tobacco: No; Hx Alcohol Use: Yes Alcohol type: beer Hx Substance Use: No Preferred Language: French Communication Ability: Impaired Communication Ability Comment: VERY [place]. does well with writing things out to him Foxing Painter Required: No Beliefs That Will Affect Care: None marital status: Current Living Situation: Alone and Homeless Current Living Situation Comment: living in van most of time, sometime with daughter How many Children do You have: 3 Feels Safe at Home: Yes Assistive Devices: Cane, Denture - Upper, Denture - Lower and Glasses Review of Systems Review of Systems: All systems reviewed & are unremarkable except as noted in HPI & below Constitutional: + weakness; no fever, no chills and no f atigue Eyes: no problem reported Ear, Nose, Mouth, Throat: no problem reported Respiratory: no problem reported Cardiovascular: + edema; no problem reported Gastrointestinal: no nausea, no vomiting and no problem reported Musculoskeletal: no problem reported Integumentary: + skin ulcer, + wounds and + erythema Neurologic: + loss of sensation, + numbness and + pa resthesia; no generalized weakness Psychiatric: no problem reported Physical Exam Physical Exam: Lower extremity focused exam: DP/PT pulses nonpalpable, possibly secondary to edema. There is calor noted to the bilateral foot. Ulcerations are noted to the right plantar mid foot and left plantar heel. These ulcers appear superficial with local erythema appreciated. No ascending cellulitis aside from a more diffuse erythema to the lower extremity noted overall. No pain is noted on palpation of the bilateral foot. No purulent drainage is appreciated. The wound beds are fibrotic. The right plantar ulceration is smaller, measuring 1 x 2 cm and again superficial. The left plantar heel ulceration is larger and more diffuse, however, also not deeper than the dermis at this time. The ulcer measures 4 x 3 cm in total. Constitutional: WD/WN, vitals as above + ill appearing, + obese and + disheveled Eyes: PERRL, conjunctivae normal, anicteric sclerae ENMT: external ear and nose normal, oropharynx normal Mouth: + poor dentition Neck: trachea midline, no thyromegaly normal visual inspection Respiratory: normal respiratory effort; no respiratory distress Cardiovascular: Rate/Rhythm: regular rate and regular rhythm Chest (Breasts): Chest: normal inspection of chest Gastrointestinal (Abdomen): Inspection/Auscultation: abdomen normal to inspection Percussion/Palpation: + abdomen tender and abdomen soft Musculoskeletal: no cyanosis or clubbing, extremities motor strength 5/5 Head/Neck/Chest: normocephalic and head atraumatic Extremities: extremities normal to inspection Skin: + ulcer, + skin atrophy, + erythema and + nails dystrophic Neurologic: awake; + abnormal sensation to monofilament and no focal motor deficits Psychiatric: A+Ox3, euthymic affect Results & Data Vital Signs (Past 12 Hours) Vital Signs Temp Pulse Pulse Resp BP Pulse Ox O2 Del Method 04/08/24 11:26 37.0 C 48 L 18 136/80 96 Room Air 04/08/24 09:39 66 04/08/24 08:49 Room Air 04/08/24 07:33 36.8 C 68 18 147/99 H 97 Room Air 04/08/24 03:02 36.5 C 65 18 118/68 95 Room Air
[2024-04-08] MEDS ORDERED: DAPTOmycin 275 MG in SYRINGE 0 ML IV SCH (13:45)
[2024-04-08] MEDS: cephALEXin 500 MG CAP PO SCH (18:25)
[2024-04-09 07:00] LABS: Hematocrit (blood only) 36.1 % (42.0-52.0); Hemoglobin 11.9 g/dl (14.0-18.0); Mean Corpuscular Hemoglobin 28.3 pg (25.0-34.0); Mean Platelet Volume 10.5 fL (9.4-12.4); Platelet Count 268 K/uL (130-400); RDW Coefficient of Variation 11.9 % (11.5-14.5); RDW Standard Deviation 36.9 fL (36.4-46.3); White Blood Count 9.82 K/ul (4.8-10.8)
[2024-04-09 07:18] LABS: BUN Creatinine Ratio 18.3 (10-20); Calcium 8.3 mg/dl (8.6-10.3); Creatinine Clr Calc Pharmacy 37.5 ml/min; Est GFR (African American) 45.7 ml/min; Est GFR (Non-African American) 39.5 ml/min; Potassium 3.9 mmol/L (3.5-5.1)
--- NOTE | 2024-04-09 08:18 | Ears,Nose,Throat Progress Note ---
Date of Service April 09, 2024 Assessment & Plan (1) Otitis externa of left ear: Plan 78yM with L OE s/p OR debridement 04/07/24. Improving on antibiotics, no evidence of granulation. Wick removed today. -Continue oral antibiotics x 10 days total -Ciprofloxacin 0.3% ear drops - 5 drops BID x14 days -OK for d/c from ENT standpoint -F/u 1-2 weeks - [phone] Admission and Anticipated Discharge Date Admission Date: April 07, 2024 Subjective ZORAIDA o/n. Denies otalgia Physical Exam Physical Exam: L otowick removed. Mild canal erythema/debris, no granulation or necrosis. No obvious exposed bone. TM appears intact No external ear cellulitis Normal facial movement Results & Data Vital Signs (Past 12 Hours) Vital Signs Temp Pulse Pulse Resp BP Pulse Ox O2 Del Method 04/09/24 07:53 65 04/09/24 07:53 Room Air 04/09/24 07:42 36.6 C 69 18 131/74 98 Room Air 04/09/24 04:02 36.6 C 65 20 122/68 98 Room Air 04/09/24 00:53 71 04/09/24 00:46 Room Air 04/09/24 00:34 36.8 C 60 20 128/67 97 Room Air PG Care Time/CCT Total # of Minutes Spent Total Time Spent with Patient: Total time spent is greater than 50% in coordination of care (as documented) at patient's floor/unit and/or counseling patient: Coding Level of Care Code 08784 SUB INP/OBS CARE 2/35MIN Diagnoses Otitis externa of left ear H60.92
--- NOTE | 2024-04-09 09:49 | Hospitalist Progress Note ---
Date of Service April 09, 2024 Assessment & Plan (1) Bilateral lower leg cellulitis: (2) Open wound of both lower extremities: (3) Wound myiasis: (4) Otitis externa: (5) Heart failure with preserved ejection fraction: (6) Moderate aortic stenosis: (7) DM type 2 (diabetes mellitus, type 2): (8) Paroxysmal atrial fibrillation: (9) Chronic indwelling Yee catheter: (10) Diabetic peripheral neuropathy: Plan: 77-year-old male who has a significant past medical history of medication noncompliance, T2DM, PAF anticoagulated on Eliquis, chronic HFpEF, moderate to severe aortic stenosis, HTN, HLD and BPH who presents to ED 2/2 "worms coming out of my left ear and pain." Bilateral lower extremity cellulitis Open wounds of both lower extremities in setting of diabetic peripheral neuropathy and venous stasis Wound myiasis Was initially on IV daptomycin and cefepime Q8H started on 04/07. MRSA swab neg Antibiotics now switched to keflex PO x 10-14d per ID. Venous doppler 04/07 neg for dvt Arterial Doppler 04/07 shows severe stenosis Awaiting vasc surgery eval Podiatry evaluation noted. Vasc surg eval also recommended Otitis Externa, left Maggot infestation of L ear CT sinus reveals soft tissue swelling, No abscess S/p OR washout on 04/07 by ENT Currently on po keflex ENT eval/recs noted. ENT recommends Cipro otic 5 drops in Left ear BID x 14 days and to follow up in 1-2 weeks outpatient ([phone]) Chronic Diastolic CHF Moderate to Severe Aortic Stenosis Bilateral lower extremity cellulitis Echo repeated 04/07: EF 60-65 % with left atrium mildly dilated, aortic valve severely calcified, borderline severe to aortic stenosis is present, compared to previous study in 07/24/23 the severity of aortic stenosis has progressed. Aortic stenosis is not new. Patient to follow up with Cardiology. Lactic acidosis Resolved Likely due to underlying infection with elevated white count- T2DM, uncontrolled with hyperglycemia and neuropathy Noncompliant with meds Hba1c outpt in February 09.5 lantus/novolg per protocol Provided DM education DM educator consult Glycemic pharm Hyponatremia, pseudo in setting of hyperglycemia Improved PAF Chronic stable Continue eliquis HR noted to drop to 40s afternoon 04/08, Metoprolol was held HR normal today. Resume metoprolol tartarate at lower dose of 12.5mg bid and monitor with holding parameters CKD-3 Cr stable, baseline ~ 1.7 Avoid nephrotoxic agents BPH Chronic indwelling yee Yee was removed and reinserted in ED due to it sticking to leg He has wound in area of previous leg attachment Follows [facility] urology Pt states yee has been chronic for several months and is exchanged routinely Last exchanged 04/07 in ER Medication noncompliance Per pt hasn't been taking insulin as she keeps in at her appt and pt hasn't asked for it Dispo: pt with difficult social situation. He and his are . lives with daughter in [place]. Up until 1 month ago pt was staying with Sister, but since then had gone to down to his property where there is no running water and he has been sleeping in a van and alternating in a tree house with propane heater. CM working on safe dc plans DVT ppx: Eliquis FULL CODE Lines: PIV 1 FEN/GI: HH/DM diet PCP: James Maria I spent a total of 50 minutes coordinating, documenting and providing care for this patient excluding time spent in performance of separately billed services Admission and Anticipated Discharge Date Admission Date: April 07, 2024 Subjective Patient seen and examined Communicated by writing out due to hearing deficits. Reports left ear pain is much improved Has chronic paresthesiae in feet No fever, chills, nausea, vomiting Denied cough, chest pain, SOB Denied dysuria, freq,urgency Physical Exam Constitutional: + well hydrated; no acute distress Eyes: PERRL, conjunctivae normal, anicteric sclerae ENMT: +Significant hearing deficits Respiratory: normal respiratory effort, lungs clear to auscultation Cardiovascular: S1 S2, systolic murmur Gastrointestinal (Abdomen): normal bowel sounds, soft, nontender, no hepatosplenomegaly Musculoskeletal: Multiple wounds in both feet. No pedal edema Neurologic: PERRL, EOMI, accommodation nl, no face palsy, no dysarthria Results & Data Results & Data Vital Signs (Past 12 Hours) Vital Signs Temp Pulse Pulse Resp BP Pulse Ox O2 Del Method 04/09/24 07:53 65 04/09/24 07:53 Room Air 04/09/24 07:42 36.6 C 69 18 131/74 98 Room Air 04/09/24 04:02 36.6 C 65 20 122/68 98 Room Air 04/09/24 00:53 71 04/09/24 00:46 Room Air 04/09/24 00:34 36.8 C 60 20 128/67 97 Room Air Laboratory Results Abnormal lab results 04/08/24 04/08/24 04/08/24 Range/Units 11:53 16:36 20:43 RBC (4.70-6.10) M/uL Hgb (14.0-18.0) g/dl Hct (42.0-52.0) % Sodium (136-145) mmol/L BUN (6-23) mg/dl Creatinine (0.6-1.4) mg/dl Glucose (70-99(Fasting)) mg/dl POC Glucose 256 H 188 H 231 H (70-99) mg/dl Calcium (8.6-10.3) mg/dl 04/09/24 04/09/24 04/09/24 Range/Units 06:26 08:11 08:12 RBC 4.20 L (4.70-6.10) M/uL Hgb 11.9 L (14.0-18.0) g/dl Hct 36.1 L (42.0-52.0) % Sodium 134 L (136-145) mmol/L BUN 30 H (6-23) mg/dl Creatinine 1.64 H (0.6-1.4) mg/dl Glucose 213 H (70-99(Fasting)) mg/dl POC Glucose 349 H* 264 H (70-99) mg/dl Calcium 8.3 L (8.6-10.3) mg/dl 04/09/24 04/09/24 Range/Units 08:13 08:30 RBC (4.70-6.10) M/uL Hgb (14.0-18.0) g/dl Hct (42.0-52.0) % Sodium (136-145) mmol/L BUN (6-23) mg/dl Creatinine (0.6-1.4) mg/dl Glucose 195 H (70-99(Fasting)) mg/dl POC Glucose 456 H* (70-99) mg/dl Calcium (8.6-10.3) mg/dl
[2024-04-09] MEDS ORDERED: PHARMACY GLYCEMIC MGMT CONSULT PRN (10:10)
[2024-04-09] MEDS: METOPROLOL TARTRATE 25 MG TAB PO SCH (10:59)
[2024-04-09] MEDS: CIPRO 0.2%/HYDROCORTISONE 1% OTIC SUSP 10 ML BTL OTL SCH (10:59)
[2024-04-09] MEDS: LANTUS PER UNIT CHARGE SC ONE (12:48)
--- NOTE | 2024-04-09 13:21 | Pharmacy Report ---
Pharmacy Glycemic Short Note 2 - Date of Service April 09, 2024 - Glycemic Short BSG Results (Last 24 hours): 04/08/24 04/08/24 04/09/24 16:36 20:43 06:26 Glucose 213 H POC Glucose 188 H 231 H 04/09/24 04/09/24 04/09/24 08:11 08:12 08:13 Glucose POC Glucose 349 H* 264 H 456 H* 04/09/24 04/09/24 08:30 11:41 Glucose 195 H POC Glucose 255 H OUTPATIENT ANTIDIABETIC REGIMEN: * Glargine 22 units SC qHS * Aspart 5 units TID with meals * A1c of 10.5% in January - per H&P ASSESSMENT: * Selvin is a 78 yo T2DM admitted with b/l lower extremity cellulitis. He is known to the glycemic service. * Persistent hyperglycemia despite receiving home dose of basal insulin and 5-6 units of aspart with meals. He received a total of 41 units of SC insulin yesterday. Of note, patient is non compliant with outpatient medications. * Will give an additional 5 units of basal insulin with lunch (~23% dose increase) and tighten aspart parameters. PLAN FOR INPATIENT GLYCEMIC CONTROL: * Basal insulin * Lantus 5 units SC with lunch * Lantus 17 -22 units SC qHS (22 units for BSG 160 mg/dL or more) * Bolus insulin * NovoLog per scale ACHS or Q6hrs while NPO * Goal Range: Low 110 mg/dL - High 140 mg/dL * Correction Factor: 40 mg/dL/unit * Nutritional / Prandial insulin per carb ratio of 1 unit per 9 grams CHO consumed
[2024-04-09] MEDS: LANTUS PER UNIT CHARGE SC SCH (21:26)
[2024-04-10] MEDS: INSULIN ASPART PER UNIT CHARGE SC SCH ×2 (00:19→17:45)
[2024-04-10 06:28] LABS: Hemoglobin 12.3 g/dl (14.0-18.0); Mean Corpuscular Hemoglobin 28.4 pg (25.0-34.0); Mean Corpuscular Hgb Conc 33.2 g/dL (32.0-36.0); Mean Corpuscular Volume 85.5 fL (80.0-100.0); Mean Platelet Volume 10.7 fL (9.4-12.4); Platelet Count 270 K/uL (130-400); RDW Coefficient of Variation 11.8 % (11.5-14.5); RDW Standard Deviation 36.7 fL (36.4-46.3); Red Blood Count 4.33 M/uL (4.70-6.10); White Blood Count 11.62 K/ul (4.8-10.8)
[2024-04-10 06:37] LABS: BUN Creatinine Ratio 17.5 (10-20); Calcium 8.4 mg/dl (8.6-10.3); Est GFR (African American) 41.7 ml/min; Potassium 3.9 mmol/L (3.5-5.1)
--- NOTE | 2024-04-10 10:47 | Hospitalist Progress Note ---
Date of Service April 10, 2024 Assessment & Plan (1) Bilateral lower leg cellulitis: (2) Open wound of both lower extremities: (3) Wound myiasis: (4) Otitis externa: (5) Heart failure with preserved ejection fraction: (6) Moderate aortic stenosis: (7) DM type 2 (diabetes mellitus, type 2): (8) Paroxysmal atrial fibrillation: (9) Chronic indwelling Yee catheter: (10) Diabetic peripheral neuropathy: Plan: 77-year-old male who has a significant past medical history of medication noncompliance, T2DM, PAF anticoagulated on Eliquis, chronic HFpEF, moderate to severe aortic stenosis, HTN, HLD and BPH who presents to ED 2/2 "worms coming out of my left ear and pain." Bilateral lower extremity cellulitis Open wounds of both lower extremities in setting of diabetic peripheral neuropathy and venous stasis Wound myiasis Was initially on IV daptomycin and cefepime Q8H started on 04/07. MRSA swab neg Antibiotics now switched to keflex PO x 10-14d per ID. Venous doppler 04/07 neg for dvt Arterial Doppler 04/07 shows severe stenosis Awaiting vasc surgery eval Podiatry evaluation noted. Vasc surg eval also recommended Otitis Externa, left Maggot infestation of L ear CT sinus reveals soft tissue swelling, No abscess S/p OR washout on 04/07 by ENT Currently on po keflex ENT eval/recs noted. ENT recommends Cipro otic 5 drops in Left ear BID x 14 days and to follow up in 1-2 weeks outpatient ([phone]) Chronic Diastolic CHF Moderate to Severe Aortic Stenosis Bilateral lower extremity cellulitis Echo repeated 04/07: EF 60-65 % with left atrium mildly dilated, aortic valve severely calcified, borderline severe to aortic stenosis is present, compared to previous study in 07/24/23 the severity of aortic stenosis has progressed. Aortic stenosis is not new. Patient to follow up with Cardiology. Lactic acidosis Resolved Likely due to underlying infection with elevated white count- T2DM, uncontrolled with hyperglycemia and neuropathy Noncompliant with meds Hba1c outpt in February 09.5 lantus/novolg per protocol DM educator consult Glycemic pharm Hyponatremia, pseudo in setting of hyperglycemia Improved PAF Chronic stable Continue eliquis HR noted to drop to 40s afternoon 04/08, Metoprolol was held HR normal today. Resume metoprolol tartarate at lower dose of 12.5mg bid and monitor with holding parameters CKD-3 Cr stable, baseline ~ 1.7 Avoid nephrotoxic agents BPH Chronic indwelling yee Yee was removed and reinserted in ED due to it sticking to leg He has wound in area of previous leg attachment [place] [facility] [place] Pt states yee has been chronic for several months and is exchanged routinely Last exchanged 04/07 in ER Medication noncompliance Per pt hasn't been taking insulin as she keeps in at her appt and pt hasn't asked for it Dispo: pt with difficult social situation. He and his are . lives with daughter in [place]. Up until 1 month ago pt was staying with Sister, but since then had gone to down to his property where there is no running water and he has been sleeping in a van and alternating in a tree house with propane heater. CM working on safe dc plans DVT ppx: Eliquis FULL CODE Lines: PIV 1 FEN/GI: HH/DM diet PCP: James Maria I spent a total of 40 minutes coordinating, documenting and providing care for this patient excluding time spent in performance of separately billed services Admission and Anticipated Discharge Date Admission Date: April 07, 2024 Subjective Patient seen and examined Communicated by writing out due to hearing deficits. Left ear pain is improved Has chronic paresthesiae in feet No fever, chills, nausea, vomiting Denied cough, chest pain, SOB Physical Exam Constitutional: + well hydrated; no acute distress Eyes: PERRL, conjunctivae normal, anicteric sclerae ENMT: +Hearing deficit Respiratory: normal respiratory effort, lungs clear to auscultation Cardiovascular: S1 S2, +murmur Gastrointestinal (Abdomen): normal bowel sounds, soft, nontender, no hepatosplenomegaly Musculoskeletal: Multiple wounds in both feet. No pedal edema Neurologic: PERRL, EOMI, accommodation nl, no face palsy, no dysarthria Results & Data Results & Data Vital Signs (Past 12 Hours) Vital Signs Temp Pulse Pulse Resp BP Pulse Ox O2 Del Method 04/10/24 07:46 Room Air 04/10/24 07:45 36.8 C 68 16 126/68 93 Room Air 04/10/24 07:11 64 04/10/24 04:52 67 06/09/24 00:07 78 Laboratory Results Abnormal lab results 04/09/24 04/09/24 04/10/24 Range/Units 16:33 20:55 00:03 WBC (4.8-10.8) K/ul RBC (4.70-6.10) M/uL Hgb (14.0-18.0) g/dl Hct (42.0-52.0) % Sodium (136-145) mmol/L BUN (6-23) mg/dl Creatinine (0.6-1.4) mg/dl POC Glucose 264 H 249 H 163 H (70-99) mg/dl Calcium (8.6-10.3) mg/dl 04/10/24 04/10/24 04/10/24 Range/Units 05:22 08:00 11:58 WBC 11.62 H (4.8-10.8) K/ul RBC 4.33 L (4.70-6.10) M/uL Hgb 12.3 L (14.0-18.0) g/dl Hct 37.0 L (42.0-52.0) % Sodium 135 L (136-145) mmol/L BUN 31 H (6-23) mg/dl Creatinine 1.77 H (0.6-1.4) mg/dl POC Glucose 138 H 204 H (70-99) mg/dl Calcium 8.4 L (8.6-10.3) mg/dl
[2024-04-10] MEDS: POLYETHYLENE (MIRALAX) 17 GM PACK PO PRN (17:51)
[2024-04-11 06:57] LABS: Hematocrit (blood only) 35.8 % (42.0-52.0); Hemoglobin 11.9 g/dl (14.0-18.0); Mean Corpuscular Hemoglobin 28.7 pg (25.0-34.0); Mean Corpuscular Hgb Conc 33.2 g/dL (32.0-36.0); Mean Corpuscular Volume 86.5 fL (80.0-100.0); Mean Platelet Volume 10.5 fL (9.4-12.4); Platelet Count 274 K/uL (130-400); RDW Coefficient of Variation 11.9 % (11.5-14.5); RDW Standard Deviation 37.8 fL (36.4-46.3); Red Blood Count 4.14 M/uL (4.70-6.10); White Blood Count 10.04 K/ul (4.8-10.8)
[2024-04-11 07:21] LABS: BUN Creatinine Ratio 17.2 (10-20); Calcium 8.5 mg/dl (8.6-10.3); Potassium 4.1 mmol/L (3.5-5.1)
[2024-04-11 07:34] VITALS: RESP 16
--- NOTE | 2024-04-11 07:57 | Hospitalist Progress Note ---
Date of Service April 11, 2024 Assessment & Plan (1) Bilateral lower leg cellulitis: (2) Open wound of both lower extremities: (3) Wound myiasis: (4) Otitis externa: (5) Heart failure with preserved ejection fraction: (6) Moderate aortic stenosis: (7) DM type 2 (diabetes mellitus, type 2): (8) Paroxysmal atrial fibrillation: (9) Chronic indwelling Yee catheter: (10) Diabetic peripheral neuropathy: Plan: 77-year-old male who has a significant past medical history of medication noncompliance, T2DM, PAF anticoagulated on Eliquis, chronic HFpEF, moderate to severe aortic stenosis, HTN, HLD and BPH who presents to ED 2/2 "worms coming out of my left ear and pain." Bilateral lower extremity cellulitis Open wounds of both lower extremities in setting of diabetic peripheral neuropathy and venous stasis Wound myiasis Was initially on IV daptomycin and cefepime Q8H started on 04/07. MRSA swab neg Antibiotics now switched to keflex PO x 10-14d per ID. Venous doppler 04/07 neg for dvt Arterial Doppler 04/07 shows severe stenosis Awaiting vasc surgery eval Podiatry evaluation noted. Vasc surg eval also recommended Otitis Externa, left Maggot infestation of L ear CT sinus reveals soft tissue swelling, No abscess S/p OR washout on 04/07 by ENT Currently on po keflex ENT eval/recs noted. ENT recommends Cipro otic 5 drops in Left ear BID x 14 days and to follow up in 1-2 weeks outpatient ([phone]) Chronic Diastolic CHF Moderate to Severe Aortic Stenosis Bilateral lower extremity cellulitis Echo repeated 04/07: EF 60-65 % with left atrium mildly dilated, aortic valve severely calcified, borderline severe to aortic stenosis is present, compared to previous study in 07/24/23 the severity of aortic stenosis has progressed. Aortic stenosis is not new. Patient to follow up with Cardiology. Lactic acidosis Resolved Likely due to underlying infection with elevated white count- T2DM, uncontrolled with hyperglycemia and neuropathy Noncompliant with meds Hba1c outpt in February 09.5 lantus/novolg per protocol DM educator consult Glycemic pharm Hyponatremia, pseudo in setting of hyperglycemia Improved PAF Chronic stable Continue eliquis HR noted to drop to 40s afternoon 04/08, Metoprolol was held HR normal today. Resume metoprolol tartarate at lower dose of 12.5mg bid and monitor with holding parameters CKD-3 Cr stable, baseline ~ 1.7 Avoid nephrotoxic agents BPH Chronic indwelling yee Yee was removed and reinserted in ED due to it sticking to leg He has wound in area of previous leg attachment [place] [facility] [place] Pt states yee has been chronic for several months and is exchanged routinely Last exchanged 04/07 in ER Medication noncompliance Per pt hasn't been taking insulin as she keeps in at her appt and pt hasn't asked for it Dispo: pt with difficult social situation. He and his are . lives with daughter in [place]. Up until 1 month ago pt was staying with Sister, but since then had gone to down to his property where there is no running water and he has been sleeping in a van and alternating in a tree house with propane heater. CM working on safe dc plans DVT ppx: Eliquis FULL CODE Lines: PIV 1 FEN/GI: HH/DM diet PCP: James Maria I spent a total of 40 minutes coordinating, documenting and providing care for this patient excluding time spent in performance of separately billed services Admission and Anticipated Discharge Date Admission Date: April 07, 2024 Results & Data Results & Data Vital Signs (Past 12 Hours) Vital Signs Temp Pulse Pulse Resp BP Pulse Ox O2 Del Method 04/11/24 07:40 67 04/11/24 07:34 36.8 C 54 L 16 146/77 H 95 Room Air 04/11/24 04:03 36.8 C 66 20 109/65 94 Room Air 04/10/24 23:38 36.9 C 65 20 124/65 92 Room Air 04/10/24 22:23 69 04/10/24 20:50 Room Air Laboratory Results Short CBC 04/11/24 Range/Units 06:18 WBC 10.04 (4.8-10.8) K/ul Hgb 11.9 L (14.0-18.0) g/dl Hct 35.8 L (42.0-52.0) % Plt Count 274 (130-400) K/uL BMP 04/11/24 06:18 Sodium 136 Potassium 4.1 Chloride 101 Carbon Dioxide 29 BUN 41 H Creatinine 2.39 H D Glucose 103 H Calcium 8.5 L
[2024-04-11] MEDS: INSULIN ASPART PER UNIT CHARGE SC SCH (08:36)
--- NOTE | 2024-04-11 09:24 | Consultation ---
Date of Consultation April 11, 2024 Assessment & Plan (1) PAD (peripheral artery disease): this gentlemen does have pad of both lower extremities but his waveforms are biphasic and does have palpable pulses in both feet with normal cap refill. No intervention is needed for this at present. Wounds should heal with local care. Thank you very much for letting us participate in the care of this patient. History of Present Illness Reason for Consultation: Pad with leg wounds Attending Physician: Ave Rojas MD History of Present Illness This is a 78yo male who has severe difficulty with hearing. He has developed bilateral lower extremity superficial wounds. I could not get a history if he claudicates. He does not have rest pain. Allergies Allergy/AdvReac Type Severity Reaction Status Date / Time lisinopril Allergy Severe Swelling Verified 04/07/24 15:49 of Face/Lips/Tongue Home Medications Medication Instructions Recorded Confirmed Type apixaban 5 mg tablet (Eliquis) 5 mg PO BID #60 tabs 08/18/23 04/07/24 Rx atorvastatin 40 mg tablet 40 mg PO QAM #30 tabs 08/18/23 04/07/24 Rx finasteride 5 mg tablet 5 mg PO DAILY #30 tabs 08/18/23 04/07/24 Rx insulin aspart U-100 100 unit/mL 5 unit (0.05 mL) subcut TIDM #15 mL 08/18/23 04/07/24 Rx (3 mL) subcutaneous pen (Novolog FlexPen U-100 Insulin aspart) metoprolol tartrate 25 mg tablet 25 mg PO BID #60 tabs 08/18/23 04/07/24 Rx pantoprazole 40 mg tablet,delayed 40 mg PO DAILY #30 tabs 08/18/23 04/07/24 Rx release tamsulosin 0.4 mg capsule 0.4 mg PO DAILY #30 caps 08/18/23 04/07/24 Rx insulin glargine 100 unit/mL (3 22 unit subcut HS 04/07/24 04/07/24 History mL) subcutaneous pen (Lantus Solostar U-100 Insulin) Patient History Medical History Maggot infestation Catheter-associated urinary tract infection Gram-negative bacteremia Acute electrocardiogram changes Elevated troponin CESAR (acute kidney injury) Metabolic encephalopathy High anion gap metabolic acidosis DKA (diabetic ketoacidosis) Admitted to intensive care unit Acute hypokalemia Acute hyperglycemia Puncture wound of foot, right Right foot infection Bacteremia D-dimer, elevated Heart failure with preserved ejection fraction Hypokalemia HTN (hypertension) Moderate aortic stenosis Premature atrial complexes Paroxysmal atrial fibrillation Abnormal urinalysis DVT prophylaxis Volume overload Cellulitis DM type 2 (diabetes mellitus, type 2) Leukocytosis Bilateral edema of lower extremity Elevated brain natriuretic peptide (BNP) level Atrial fibrillation with rapid ventricular response Dyspnea Surgical History History of ear surgery age 19, mastoid H/O shoulder surgery S/P foot surgery, left Family History Brother Diabetes Social History Smoking Status: Former smoker Tobacco Type: Cigarettes Second Hand Exposure: No; Do You Dip or Chew Tobacco: No; Hx Alcohol Use: Yes Alcohol type: beer Hx Substance Use: No Preferred Language: Afghan Communication Ability: Impaired Communication Ability Comment: VERY ANGOON. does well with writing things out to him Senior Scheduler Required: No Beliefs That Will Affect Care: None marital status: Current Living Situation: Alone and Homeless Current Living Situation Comment: living in van most of time, sometime with daughter How many Children do You have: 3 Feels Safe at Home: Yes Assistive Devices: Glasses Review of Systems Review of Systems: Other (could not obtain due to hearing deficits) Physical Exam Constitutional: WD/WN, vitals as above Respiratory: normal respiratory effort; no respiratory distress Cardiovascular: Rate/Rhythm: regular rate and regular rhythm Vessels: femoral pulses present, posterior tibial pulses present (+2 of left, +1 on right), dorsalis pedis pulses present (+2 of left, +1 on right) and radial pulses present Extremities: normal capillary refill and + edema Gastrointestinal (Abdomen): Inspection/Auscultation: abdomen normal to inspection Skin: + wound (superficial appearing wounds of both lower extremities) Psychiatric: Orientation: alert Results & Data Vital Signs (Past 12 Hours) Vital Signs Temp Pulse Pulse Resp BP Pulse Ox O2 Del Method 04/11/24 07:40 67 04/11/24 07:34 36.8 C 54 L 16 146/77 H 95 Room Air 04/11/24 04:03 36.8 C 66 20 109/65 94 Room Air 04/10/24 23:38 36.9 C 65 20 124/65 92 Room Air 04/10/24 22:23 69 Diagnostic Findings arterial noninvasives have biphasic waveforms below the knees and triphasic waveforms above the knees. Pedal waveforms have brisk upstroke and is not widened.
[2024-04-11 12:05] VITALS: BP 141/77; PULSE 64; TEMP 98.1; O2SAT 98
--- NOTE | 2024-04-11 12:23 | Discharge Summary ---
Date of Service April 11, 2024 Admission HPI Per Admitting Provider This is a 77-year-old male who has a significant past medical history of medication noncompliance, T2DM, PAF anticoagulated on Eliquis, chronic HFpEF, moderate to severe aortic stenosis, HTN, HLD and BPH who presents to ED 2/2 "worms coming out of my left ear and pain." He states that he lives, "anywhere he can." Sometimes at his daughters or a van. He has neuropathy in his feet. He has wounds and swelling to his feet. He felt chilled recently, but denies any f,s, lightheaded, dizziness, chest pain, sob, n/v or abdominal pain. He had diarrhea a could days ago but that resolved. He states he has been taking his me dications, but has not taking his insulin in at least 2 days. He otherwise has been taking his medication, but he isn't sure what the names are. In ED pt was found to have multiple wounds to his lower extremities with maggots attached, maggots between toes and maggots to his left ear. He did not meet sepsis criteria. ENT was notified who came to evaluate the patient and he is going to be going to the OR for debridement. He was significantly hyperglycemic with bsg over 500s. Admission Exam Per Admitting Provider GENERAL APPEARANCE: AxOx2-3? disheveled male, no acute distress. HEENT: left auditory external canal with diffuse erythema, foul odor, and difficult to visual TM given swelling NECK: Supple without lymphadenopathy. No stiffness or restricted ROM. HEART: irregular irregular, JESSICA++ LUNGS: CTAB, moving air well. No crackles or wheezes are heard. ABDOMEN: Soft, nontender, nondistended with good bowel sounds heard. BACK: No CVAT, no obvious deformity. EXTREMITIES: Without cyanosis, clubbing, 2+ pitting edema bilateral lower extremities to mid calf NEUROLOGICAL: Grossly nonfocal. Alert and oriented, moving all 4 extremities. CN not formally tested but appear grossly intact.; no sensation to fine touch in BLE, limited to pressure, no proprioception Skin: skin maceration in groin; large horizontal wound, 6 in under popliteal fossa without signs of superimposed infection, scattered wounds on bilateral anterior shins, left great hallux with skin splitting on dorsum, multiple wounds on digits, skin sloughing of left heel, right foot with area of white opacification on medial arch--noted flattening of arch, scattered wounds on digits of right foot Principal Diagnosis Cellulitis Left Ear myiasis Discharge Exam Neuro: AAOx4, PERRLA, no aphagia, memory changes, CNII-XII grossly intact HEENT: head normocephalic, moist mucus membranes CV: S1/S2, (-) M/G/R, (-) edema, cap refill < 3 seconds Resp: Lungs CTA in all wilson. On RA GI: Abdomen S/NT/ND, Ax4 bowel sounds, (-) CVA tenderness Musculoskeletal:scattered wounds on bilateral anterior shins. Skin continues to slough on left heel. Scattered wounds on R foot digits Skin: (-) rashes , (-) erythema. Psych: euthymic mood Discharge Data Allergies Allergy/AdvReac Type Severity Reaction Status Date / Time lisinopril Allergy Severe Swelling Verified 04/07/24 15:49 of Face/Lips/Tongue Consultations 04/07/24 11:52 Consult Otolaryngology (Head and Neck) Stat 04/07/24 13:16 ED Decision to Admit Stat 04/07/24 13:42 Consult Podiatry Routine 04/07/24 17:40 Consult Infectious Diseases Routine 04/08/24 12:17 Consult Vascular Surgery Routine Procedures Performed Operation Date: 04/07/24 07:55 Actual Procedures p Exam Under Anesthesia, Left Ear Cleaning(Left) - Francisco Javier Almodovar MD Ordered Studies 04/07/24 11:43 CT sinus wo con Stat 04/07/24 13:45 US arterial duplex LE BI Stat US venous doppler LE BI Stat Hospital Course (1) Bilateral lower leg cellulitis: (2) Open wound of both lower extremities: (3) Wound myiasis: (4) Otitis externa: (5) Heart failure with preserved ejection fraction: (6) Moderate aortic stenosis: (7) DM type 2 (diabetes mellitus, type 2): (8) Paroxysmal atrial fibrillation: (9) Chronic indwelling Yee catheter: (10) Diabetic peripheral neuropathy: Plan Bilateral lower extremity cellulitis Open wounds of both lower extremities in setting of diabetic peripheral neuropathy and venous stasis Wound myiasis: Initially was on IV daptomycin and cefepime since 6 6 and was switched to Keflex to complete a 10 to 14-day course per infectious disease. Keflex was reduced to renal dosing 04/11 due to elevated creatinine 2.39. abx completion date anticipated 04/18 Vascular evaluated this morning and noted positive palpable pulses and did not feel any intervention was warranted at this time. Podiatry evaluation as outpatient recommended. MRSA swab was negative inpatient Venous doppler 04/07 neg for dvt Arterial Doppler 04/07 shows severe stenosis Otitis Externa, left Maggot infestation of L ear CT sinus reveals soft tissue swelling, No abscess ENT provided washout on 04/07 in the Operating Room ENT recommendation continue Cipro otic 5 drops in left ear twice daily x 14 days with end date 04/22/2024 with additional follow-up in 1 to 2 weeks as an outpatient. ([phone]) Chronic Diastolic CHF Moderate to Severe Aortic Stenosis Bilateral lower extremity cellulitis Echo repeated 04/07: EF 60-65 % with left atrium mildly dilated, aortic valve severely calcified, borderline severe to aortic stenosis is present, compared to previous study in 07/24/23 the severity of aortic stenosis has progressed. Aortic stenosis is not new. Patient to follow up with Cardiology as outpatient Lactic acidosis Resolved Likely due to underlying infection with elevated white count- T2DM, uncontrolled with hyperglycemia and neuropathy Noncompliant with meds Hba1c outpt in February 09.5 Continue home insulin Provided diabetes education PAF Chronic stable Continue eliquis HR noted to drop to 40s afternoon 04/08, Metoprolol was held Metoprolol tartarate resumed at lower dose of 12.5mg bid HR has been normal CKD-3 Cr stable, baseline ~ 1.7 Continue to avoid nephrotoxic agents BPH Chronic indwelling yee Follows [facility] [place]; last appointment in January Pt states yee has been chronic for several months and is exchanged routinely for his BPH Last exchanged 04/07 in ER Medication noncompliance: Per pt hasn't been taking insulin as she keeps in at her appt and pt hasn't asked for it. Confirmed with patient's that patient does have numerous bottles of insulin and confirmed expiration date 2024 at her house. Dispo: pt with difficult social situation. He and his are . lives with daughter in [place]. Up until 1 month ago pt was staying with Sister in [place], but since then had gone to down to his property where there is no running water and he has been sleeping in a van and alternating in a tree house with propane heater. No water or electric in his home. Total Time Total Time Spent Total Time Spent (In Minutes): Total time spent preparing the discharge 52 minutes ensuring assessing the patient, discussing discharge instructions and coordinating with case management for discharge plan. Discharge Plan Discharge Items Patient Disposition: Home - Self-Care Reason For Visit: Ear pain Discharge Diagnosis: Cellulitis Left ear pain; maggots in the left ear Condition on Discharge: Good Goals: Proceed with PCP follow up to maintain receiving appropriate care for your condition. Take your medications as prescribed. Follow up with your Primary Care provider and Hospice Executive Director Activity: Resume your previous activity Non-emergency contact: Primary Care Provider Call non-emergency contact if: you have any medication questions, your temperature is above 101 and your wound pain has increased Follow-up/Referrals: [facility] [Other] - 04/18/24 8:00 am Len Garland MD [Physician] - 04/19/24 10:00 am James Maria DO [Primary Care Provider] - (Date & Time 04/18/2024 11:00 AM Provider James Maria DO Department Family [facility] ) Diet: Carb Consistent or DM2 Diet Texture: Easy to Chew Addtl Attending Provider Instructions: You were admitted to the hospital on 04/07/24 with cellulitis and maggots that were discovered in your left ear. You were taken to the operating room on 04/07 and your ear was washed out. You will need to continue antibiotic pills and ear drops when you leave the hospital. It is important that you continue to take your home medications including your insulin for treatment of your diabetes and your Eliquis and Metoprolol for treatment of your atrial fibrillation. You have a yee catheter that should continue to be managed by Urology. A new yee catheter was placed in the Emergency Room on 04/07/24. You will continue taking your scheduled routine medications in addition to the following new medications: 1. Keflex 500 mg by mouth twice per day until completed 2. Ear Drops: Cipro otic 5 drops in left ear twice daily x 14 days with end date 04/22/2024 with additional follow-up in 1 to 2 weeks as an outpatient. It is important to follow up with your appointments: 1. Wound Clinic 04/18/24 @ 0800 2. Primary Care Provider: James Maria PA-C on 04/18/24 @ 1100. your primary care provider which has been arranged for you on We strongly advise that you reconsider staying with a friend or family member for additional support including a space with running water and power that can avoid complications with your medical conditions. Pending Studies at Discharge: No Stand-Alone Forms: My [facility], Smoking Cessation Medications and DC Order Prescriptions: New cephalexin 500 mg Capsule 500 mg PO BIDM 4 Days Qty: 8 0RF Cipro HC 0.2-1 % Drops,Suspension 5 drp OTL BID Qty: 10 0RF Continued pantoprazole 40 mg Tablet,Delayed Release (Dr/Ec) 40 mg PO DAILY Qty: 30 0RF atorvastatin 40 mg tablet 40 mg PO QAM Qty: 30 0RF tamsulosin 0.4 mg capsule 0.4 mg PO DAILY Qty: 30 11RF finasteride 5 mg tablet 5 mg PO DAILY Qty: 30 11RF Eliquis 5 mg tablet 5 mg PO BID Qty: 60 0RF insulin aspart U-100 [Novolog FlexPen U-100 Insulin] 100 unit/mL (3 mL) Insulin Pen 5 unit SUBCUT TIDM Qty: 15 0RF insulin glargine [Lantus Solostar U-100 Insulin] 100 unit/mL (3 mL) insulin pen 22 unit SUBCUT HS Changed metoprolol tartrate 25 mg tablet 12.5 mg PO BID Qty: 60 0RF Discharge Orders: Discharge Order (Routine); Ordered 04/11/24 Ordered By: Lorraine Montiel/Other Patient Handouts: Diabetes: Caring for Your Body, Diabetes: Living Your Life, Diabetes: Meal Planning, Diabetes Support, Diabetes and PAD Admission Data Admit Date/Time: 04/07/24 12:59 Attending Provider: Ave Rojas I. Admit Provider: Nelli Sanches Primary Care Provider: James Maria Other Providers: John Buitrago; Francisco Javier Almodovar; Nelli Sanches; Rebel Pacheco; Alethea Jennings; Wilian Ramos I.; Roland Coleman II; Gerri Thacker; Abdullahi Bains; Stanford Whitfield; Shefali Conde; Roger Nguyen Other Interventions: Discharge Summary Assessment (RN) Last Done: 04/11/24 15:36 Supervising Physician Co-Signing Physician Notes Patient seen and examined Agree with findings and plans as detailed by Advanced Practitioner and take full responsibility
[2024-04-11] MEDS ORDERED: cephALEXin 500 MG CAP PO SCH (17:00)
== END 2024-04-11 16:07 | disposition home or self-care (01) | DRG 607 ==
LOC: ED 10:54 → OR 16:00 → 2N 16:01 → SUATTDRO 16:01 → OR 16:53

== ENCOUNTER 2024-04-15 07:22 | Inpatient (IN) ==
--- NOTE | 2024-04-15 07:51 | Emergency Department Note ---
History of Present Illness General Chief complaint: Catheter Replacement Stated complaint: CATH LEAK Time Seen by Provider: 04/15/24 07:31 History of Present Illness Maximum Pain Intensity: 5 This is a 78-year-old male that presents to the emergency department via private vehicle accompanied by with complaints of "catheter malfunction". The patient states that around 0430 this morning the catheter pulled out of the penis he believes secondary to tension from the velasco on the right leg. He notes penile pain since that time. He reached out to his as he has been unable to urinate since that time. at bedside provides the rest of the history. She notes that he does not live with her, rather is essentially "homeless". She notes that he lives in his car. He does not have access to clean water to shower. notes that the patient did nut picker the antibiotic from the pharmacy yesterday that he was recently prescribed. Patient denies any fevers. Home Medications Medication Instructions Recorded Confirmed Type apixaban 5 mg tablet (Eliquis) 5 mg PO BID #60 tabs 08/18/23 04/07/24 Rx atorvastatin 40 mg tablet 40 mg PO QAM #30 tabs 08/18/23 04/07/24 Rx finasteride 5 mg tablet 5 mg PO DAILY #30 tabs 08/18/23 04/07/24 Rx insulin aspart U-100 100 unit/mL 5 unit (0.05 mL) subcut TIDM #15 mL 08/18/23 04/07/24 Rx (3 mL) subcutaneous pen (Novolog FlexPen U-100 Insulin aspart) pantoprazole 40 mg tablet,delayed 40 mg PO DAILY #30 tabs 08/18/23 04/07/24 Rx release tamsulosin 0.4 mg capsule 0.4 mg PO DAILY #30 caps 08/18/23 04/07/24 Rx insulin glargine 100 unit/mL (3 22 unit subcut HS 04/07/24 04/07/24 History mL) subcutaneous pen (Lantus Solostar U-100 Insulin) ciprofloxacin 0.2 %-hydrocortisone 5 drp OTL BID #10 mL 04/11/24 Rx 1 % ear drops,suspension (Cipro HC) metoprolol tartrate 25 mg tablet 12.5 mg (1/2 x 25 mg) PO BID #60 04/11/24 04/07/24 Rx tabs cephalexin 500 mg capsule 500 mg PO BID 5 days #10 caps 04/13/24 Rx ciprofloxacin HCl 0.2 % ear drops 5 drp otic (ear) BID 7 days #14 ea 04/13/24 Rx in a dropperette Allergies Allergy/AdvReac Type Severity Reaction Status Date / Time lisinopril Allergy Severe Swelling Verified 04/07/24 15:49 of Face/Lips/Tongue Past Med/Surg History Problem List (Updated 04/15/24 @ 10:19 by Rito Bush PA-C) Malfunction of Hanna catheter (Acute) Hyperglycemia (Acute) Hyponatremia (Acute) Visit for wound care (Acute) Wound of foot (Acute) PAD (peripheral artery disease) Charcot's joint of right foot Ulcer of left foot, limited to breakdown of skin Otitis externa of left ear Elevated lactic acid level (Acute) Acute hyperglycemia (Acute) Acute hyponatremia (Acute) Leukocytosis (Acute) Cellulitis (Acute) Diabetic peripheral neuropathy Chronic indwelling Hanna catheter Open wound of both lower extremities Wound myiasis Bilateral lower leg cellulitis Otitis externa Ambulatory dysfunction Indwelling Hanna catheter present Severe aortic stenosis Chronic heart failure with preserved ejection fraction (HFpEF) Encounter for mastoidectomy cavity debridement Ear drum perforation Mixed hearing loss Hydronephrosis, bilateral Open wound of left heel Severe hearing loss Aortic stenosis Urinary retention Tick bite of neck Burn of ankle, right, second degree (Acute) Open wound of abdomen (Acute) Blister of finger (Acute) Open wounds of multiple fingers (Acute) Lymphedema (Acute) Homeless (Acute) Traumatic open wound of right lower leg (Acute) BPH (benign prostatic hyperplasia) Edema of both legs Hypertension Paroxysmal atrial fibrillation Diabetes mellitus, type II (Chronic) DVT prophylaxis Hearing loss Dyslipidemia Cellulitis of right anterior lower leg (Acute) Hypophosphatemia Angioedema Medical History Maggot infestation Catheter-associated urinary tract infection Gram-negative bacteremia Acute electrocardiogram changes Elevated troponin CESAR (acute kidney injury) Metabolic encephalopathy High anion gap metabolic acidosis DKA (diabetic ketoacidosis) Admitted to intensive care unit Acute hypokalemia Acute hyperglycemia Puncture wound of foot, right Right foot infection Bacteremia D-dimer, elevated Heart failure with preserved ejection fraction Hypokalemia HTN (hypertension) Moderate aortic stenosis Premature atrial complexes Paroxysmal atrial fibrillation Abnormal urinalysis DVT prophylaxis Volume overload Cellulitis DM type 2 (diabetes mellitus, type 2) Leukocytosis Bilateral edema of lower extremity Elevated brain natriuretic peptide (BNP) level Atrial fibrillation with rapid ventricular response Dyspnea Surgical History History of ear surgery age 19, mastoid H/O shoulder surgery S/P foot surgery, left Family History Brother Diabetes Social History Smoking Status: Former smoker Tobacco Type: Cigarettes Second Hand Exposure: No; Do You Dip or Chew Tobacco: No; Hx Alcohol Use: Yes Alcohol type: beer Hx Substance Use: No Preferred Language: Maori Communication Ability: Impaired Communication Ability Comment: VERY [place]. does well with writing things out to him [employer] Scre[employer]maker Required: No Beliefs That Will Affect Care: None marital status: Current Living Situation: Alone and Homeless Current Living Situation Comment: living in van most of time, sometime with daughter How many Children do You have: 3 Feels Safe at Home: Yes Assistive Devices: Glasses Review of Systems A total of 10 systems reviewed and were otherwise negative Physical Exam Vital Signs Vital Signs - 24 hr 04/15/24 07:25 04/15/24 08:41 Temperature 36.5 C Temperature Source Temporal Artery Scan Pulse Rate 93 H 54 L Respiratory Rate 16 Respiratory Effort / Characteristics Non-Labored Spontaneous Respiratory Depth Normal Blood Pressure 107/63 Blood Pressure Mean 77 Pulse Oximetry 98 Oxygen Delivery Method Room Air Sepsis Recent Fever Within 48 Hours No Sepsis New/Unexplained Change in Mental Status No Sepsis Action Taken by Nursing No Action Required VITAL SIGNS - Vital signs and nursing notes were reviewed. Stable and afebrile. GENERAL - 78-year-old male appearing his stated age who is in no acute distress. Extremely hard of hearing, mainly is able to hear only from the right ear otherwise communicates well with provider and answers questions appropriately. SKIN -multiple erythematous regions to the bilateral lower extremity, right greater than left. There are Tegaderm dressings noted to the bilateral lower extremities that are rolled with a darkish hue. Foul-smelling wounds to the lower extremities. Bilateral feet are soaked as are the socks that are on the bilateral feet. The feet are macerated with various wounds. There is a large amount of stool noted overlying the proximal thighs and genital region. Hanna catheter attached to the right leg with the bulb deflated. HEAD - NC/AT. EYES - PERRL with EOMI bilaterally. Sclera anicteric. EARS - No deformities of external structures noted on gross examination bilaterally.Tympanic membranes pearly franco without retraction or bulging. No fluid or purulent material visualized behind the TM. Handle of malleus, umbo, cone of light, pars tensa/flaccid all easily visualized. NOSE - Midline and without cyanosis. No epistaxis or purulent drainage noted. MOUTH/OROPHARYNX - Without perioral cyanosis. NECK - Neck with FROM. No nuchal rigidity. LUNGS - CTA CARDIAC - RRR EXTREMITIES - No clubbing or peripheral cyanosis. +5/5 strength noted in UE/LE bilaterally. NEUROLOGIC - Cranial nerves II through XII grossly intact. PSYCH - A&O, pleasant on exam. Course Administered Medications Discontinued Medications Cefepime HCl (Maxipime) 2,000 mg in 20 mls @ 5 mls/min IV NOW STA; Protocol Stop: 04/15/24 09:22 Last Admin: 04/15/24 10:23 Dose: 5 mls/min Documented By: ROMULO Sodium Chloride (Nss) 500 mls @ 125 mls/hr IV .Q4H DARIN Stop: 05/15/24 09:29 Last Admin: 04/15/24 10:23 Dose: 125 mls/hr Documented By: ROMULO Medical Decision Making Laboratory Data 04/15/24 08:35 04/15/24 08:35 Lab Results 04/15/24 04/15/24 Range/Units 07:50 08:35 WBC 11.83 H (4.8-10.8) K/ul RBC 4.14 L (4.70-6.10) M/uL Hgb 11.6 L (14.0-18.0) g/dl Hct 35.7 L (42.0-52.0) % MCV 86.2 (80.0-100.0) fL MCH 28.0 (25.0-34.0) pg MCHC 32.5 (32.0-36.0) g/dL RDW Std Deviation 38.4 (36.4-46.3) fL RDW Coeff of Scott 12.1 (11.5-14.5) % Plt Count 307 (130-400) K/uL MPV 10.9 (9.4-12.4) fL Immature Gran % (Auto) 0.3 % Neut % (Auto) 70.8 % Lymph % (Auto) 20.0 % [place] % (Auto) 6.5 % Eos % (Auto) 1.9 % Baso % (Auto) 0.5 % Neut # (Auto) 8.37 H (1.40-6.50) K/uL Lymph # (Auto) 2.37 (1.20-3.40) K/uL [place] # (Auto) 0.77 H (0.11-0.59) K/uL Eos # (Auto) 0.22 (0.00-0.50) K/uL Baso # (Auto) 0.06 (0.00-0.20) K/uL Immature Gran # (Auto) 0.04 (0.01-0.20) K/uL Sodium 133 L (136-145) mmol/L Potassium 4.6 (3.5-5.1) mmol/L Chloride 98 (98-107) mmol/L Carbon Dioxide 29 (21-32) mmol/L Anion Gap 6 (3-11) BUN 30 H (6-23) mg/dl Creatinine 1.51 H (0.6-1.4) mg/dl Est Cr Clr Drug Dosing Not Reportable Est GFR ( Amer) 50.5 ml/min Est GFR (Non-Af Amer) 43.6 ml/min BUN/Creatinine Ratio 19.9 (10-20) Glucose 318 H* (70-99(Fasting)) mg/dl Calcium 8.9 (8.6-10.3) mg/dl Total Bilirubin 0.8 (0.2-1.0) mg/dl AST 13 (13-39) U/L ALT 9 (7-52) U/L Alkaline Phosphatase 106 H (34-104) U/L Total Protein 8.1 (6.0-8.3) gm/dl Albumin 3.5 (3.4-5.0) gm/dl Globulin 4.6 H (2.5-4.0) gm/dl Albumin/Globulin Ratio 0.8 L (0.9-2) Procalcitonin 0.05 (0-0.5) ng/ml Urine Color Yellow Urine Appearance Clear (Clear) Urine pH 6.0 (4.5-7.5) Ur Specific [place] 1.018 (1.000-1.030) Urine Protein 1+ H (Negative) Urine Glucose (UA) 3+ H (Negative) Urine Ketones Negative (Negative) Urine Blood 3+ H (Negative) Urine Nitrite Negative (Negative) Urine Bilirubin Negative (Negative) Urine Urobilinogen Negative (Negative) Ur Leukocyte Esterase Negative (Negative) Urine WBC (Auto) 0-5 (0-5) /hpf Urine RBC (Auto) >20 H (0-2) /hpf U Hyaline Cast (Auto) 3-5 H (0-2) /lpf U Epithel Cells (Auto) 0-2 (0-2) /hpf Urine Bacteria (Auto) None Seen (None Seen) MDM Narrative Patient was seen and evaluated as above in room D05 then moved to room C03. Review was performed of nursing notes and vital signs. I did review pertinent previous visits and patient history. After obtaining a thorough history and physical examination the above work up was performed. Patient presents to us today for assessment of malfunctioning Hanna catheter as it appears to have been removed prior to coming in today. No signs of penile trauma presently. No blood from the urethra seen on exam. He is here today with . He is hard of hearing. Patient does have several wounds to the lower extremities that are in various stages of healing. Bedside bladder scan was performed showing just over 150 mL. Patient notes he cannot urinate. Hanna catheter at this time is felt to be needed and will be replaced. Once this was replaced, yellow urine began draining. Urine was not grossly bloody. No issues with Hanna catheter placement. I am concerned about the patient's lower extremity wounds. Multiple of the dressings to the lower extremities are slightly lifted and are with contamination. Wounds are foul-smelling. The feet are with wet socks and macerated. I do believe inpatient management is warranted. 8:10am: I recommend admission noting the patient's wounds, appearance of cellulitic change to the extremities. Patient with capacity declined the recommendation to stay in the hospital. 8:20 AM: I spoke to the wound care team. They will come to manage the wounds. 9:15 AM: Upon repeat assessment patient now notes he is willing to stay in the hospital. He did ask for a meal tray which I did order. 10:03 AM: I spoke to the hospitalist. Plan at this time is to proceed with admission. Labs reveal leukocytosis 11.83. Minor anemia noted with hemoglobin of 11.6. Mild hyponatremia 133. Downtrending CESAR with creatinine 1.51. Hyperglycemia 318. Procalcitonin 0.05. Urinalysis reveals 3+ glucose, 3+ blood but no bacteria. I did order IV antibiotics as well as IV fluids to hydrate the dehydrated appearing patient. GCS: 15 In the evaluation and treatment of this patient the following differential diagnoses were entertained: Cellulitis, sepsis, necrotizing fasciitis, medication noncompliance, hyperglycemia, among others. Impression & Plan Cellulitis, Leukocytosis, Hyponatremia, Hyperglycemia, Malfunction of Hanna catheter Discharge Plan Visit Data Chief Complaint: Catheter Replacement Stated Complaint: CATH LEAK ED Provider: Abdullahi Mai ED Midlevel Provider: Rito Bush Discharge Problem: Cellulitis, Leukocytosis, Hyponatremia, Hyperglycemia, Malfunction of Hanna catheter Patient Disposition: Admitted As Inpatient Condition: Good Forms Stand Alone Forms: My [facility] Prescriptions Prescriptions: No Action pantoprazole 40 mg Tablet,Delayed Release (Dr/Ec) 40 mg PO DAILY Qty: 30 0RF atorvastatin 40 mg tablet 40 mg PO QAM Qty: 30 0RF tamsulosin 0.4 mg capsule 0.4 mg PO DAILY Qty: 30 11RF finasteride 5 mg tablet 5 mg PO DAILY Qty: 30 11RF Eliquis 5 mg tablet 5 mg PO BID Qty: 60 0RF insulin aspart U-100 [Novolog FlexPen U-100 Insulin] 100 unit/mL (3 mL) Insulin Pen 5 unit SUBCUT TIDM Qty: 15 0RF insulin glargine [Lantus Solostar U-100 Insulin] 100 unit/mL (3 mL) insulin pen 22 unit SUBCUT HS Cipro HC 0.2-1 % Drops,Suspension 5 drp OTL BID Qty: 10 0RF metoprolol tartrate 25 mg tablet 12.5 mg PO BID Qty: 60 0RF ciprofloxacin HCl 0.2 % dropperette 5 drp otic (ear) BID 7 Days Qty: 14 0RF cephalexin 500 mg capsule 500 mg PO BID 5 Days Qty: 10 0RF Referrals Referrals: James Maria DO [Primary Care Provider] -
[2024-04-15 08:05] LABS: Appearance Urine Clear (Clear); Bacteria Urine Automated None Seen (None Seen); Bilirubin Urine Negative (Negative); Blood Urine 3+ (Negative); Color Urine Yellow; Epithelial Cell Urine Auto 0-2 /hpf (0-2); Glucose Urine UA 3+ (Negative); Ketones Urine Negative (Negative); Leukocyte Esterase Urine Negative (Negative); Nitrite Urine Negative (Negative); Protein Urine 1+ (Negative); RBC Urine Automated >20 /hpf (0-2); Specific Gravity Urine 1.018 (1.000-1.030); Urobilinogen Urine Negative (Negative); WBC Urine Automated 0-5 /hpf (0-5)
[2024-04-15 09:04] LABS: Basophils # (auto) 0.06 K/uL (0.00-0.20); Basophils % (auto) 0.5 %; Eosinophils # (auto) 0.22 K/uL (0.00-0.50); Eosinophils % (auto) 1.9 %; Hematocrit (blood only) 35.7 % (42.0-52.0); Hemoglobin 11.6 g/dl (14.0-18.0); Immature Granulocytes # (auto) 0.04 K/uL (0.01-0.20); Immature Granulocytes % (auto) 0.3 %; Lymphocytes # (auto) 2.37 K/uL (1.20-3.40); Mean Corpuscular Hgb Conc 32.5 g/dL (32.0-36.0); Mean Corpuscular Volume 86.2 fL (80.0-100.0); Mean Platelet Volume 10.9 fL (9.4-12.4); Monocytes # (auto) 0.77 K/uL (0.11-0.59); Monocytes % (auto) 6.5 %; Neutrophils # (auto) 8.37 K/uL (1.40-6.50); Neutrophils % (auto) 70.8 %; Platelet Count 307 K/uL (130-400); RDW Coefficient of Variation 12.1 % (11.5-14.5); RDW Standard Deviation 38.4 fL (36.4-46.3); Red Blood Count 4.14 M/uL (4.70-6.10); White Blood Count 11.83 K/ul (4.8-10.8)
[2024-04-15 09:25] LABS: Alanine Aminotransferase 9 U/L (7-52); Albumin Globulin Ratio 0.8 (0.9-2); Albumin Level 3.5 gm/dl (3.4-5.0); Alkaline Phosphatase 106 U/L (34-104); Anion Gap 6 (3-11); Aspartate Aminotransferase 13 U/L (13-39); BUN Creatinine Ratio 19.9 (10-20); Bilirubin,Total 0.8 mg/dl (0.2-1.0); Blood Urea Nitrogen 30 mg/dl (6-23); Calcium 8.9 mg/dl (8.6-10.3); Carbon Dioxide 29 mmol/L (21-32); Chloride 98 mmol/L (98-107); Est GFR (African American) 50.5 ml/min; Est GFR (Non-African American) 43.6 ml/min; Globulin 4.6 gm/dl (2.5-4.0); Glucose 318 mg/dl (70-99(Fasting)); Potassium 4.6 mmol/L (3.5-5.1); Sodium 133 mmol/L (136-145); Total Protein 8.1 gm/dl (6.0-8.3)
[2024-04-15] MEDS ORDERED: DEXTROSE 50% 50 ML SYRINGE IV PRN (10:22)
[2024-04-15] MEDS ORDERED: ONDANSETRON INJ 2 MG/ML 2 ML VIAL IV PRN (10:22)
[2024-04-15] MEDS ORDERED: POLYETHYLENE (MIRALAX) 17 GM PACK PO PRN (10:22)
[2024-04-15] MEDS ORDERED: ACETAMINOPHEN 325 MG TAB PO PRN (10:22)
[2024-04-15] MEDS ORDERED: GLUCOSE 40% GEL 15 GM TUBE PO PRN (10:22)
[2024-04-15] MEDS ORDERED: PHARMACY GLYCEMIC MGMT CONSULT PRN (10:22)
[2024-04-15] MEDS ORDERED: GLUCAGON FOR INJ 1 MG VIAL SQ PRN (10:22)
[2024-04-15] MEDS ORDERED: GLUCOSE 10 TAB/TUBE PO PRN (10:22)
[2024-04-15] MEDS: CEFEPIME 2,000 MG/20 ML VIAL IV STA (10:23)
[2024-04-15] MEDS: SODIUM CHLORIDE 0.9% 500 ML IV SCH (10:23)
--- NOTE | 2024-04-15 10:51 | History & Physical Report ---
Date of Service April 15, 2024 Assessment & Plan (1) Malfunction of Yee catheter: Plan Malfunction of yee: pulled out yee in am, couldn't urinate, presented to ED. yee placed, draining clear yellow urine. pt reports abd pain improving significantly. Bilateral lower extremity cellulitis Open wounds of both lower extremities in setting of diabetic peripheral neuropathy and venous stasis Left great toe tip ulcer Left heel unstageable ulcer Patient noncompliant, recently discharged on Cephalexin, did not sisal picker his antibiotic until last evening. At presentation the bilateral lower extremity wounds appears infected. WBC elevated, not septic at presentation. Patient started on cefepime in the ED, continue. Add probiotic. Wound care consult. Vascular follow-up as an outpatient. Arterial Doppler 04/07 showed severe stenosis, vascular evaluated in the last admission and did not feel any intervention was warranted. MRI LLE Patient is homeless/unable to care for self/CM consult for DC planning. Follow-up admitting wound and blood culture. Recent history of Otitis Externa, left Maggot infestation of L ear last admission CT sinus reveals soft tissue swelling, No abscess ENT provided washout on 04/07 in the Operating Room ENT recommendation continue Cipro otic 5 drops in left ear twice daily x 14 days with end date 04/22/2024 with additional follow-up in 1 to 2 weeks as an outpatient. ([phone]) Chronic Diastolic CHF Moderate to Severe Aortic Stenosis Echo repeated 04/07: EF 60-65 % with left atrium mildly dilated, aortic valve severely calcified, borderline severe to aortic stenosis is present, compared to previous study in 07/24/23 the severity of aortic stenosis has progressed. Aortic stenosis is not new. Patient to follow up with Cardiology as outpatient T2DM, uncontrolled with hyperglycemia and neuropathy Noncompliant with meds Hba1c outpt in February 09.5 glycemic consult PAF Chronic stable Continue eliquis and metoprolol CKD-3 Cr stable, baseline ~ 1.7 Continue to avoid nephrotoxic agents BPH Chronic indwelling yee [place] [facility] [place]; last appointment in January Pt states yee has been chronic for several months and is exchanged routinely for his BPH Last exchanged 04/15 in ER Medication noncompliance: major part of his problem. know issue. portends poor prognosis for his overall health. pt/ot, cm. hep sc full code History of Present Illness Chief Complaint: pulled out Yee catheter, cannot urinate, lower abdominal pain. Primary Care Provider: James Maria DO 77-year-old male with PMH of MEDICATION noncompliance, T2DM, PAF anticoagulated on Eliquis, chronic HFpEF, moderate to severe aortic stenosis, HTN, HLD, BPH who is homeless and lives in a van presented to the ED after he pulled out his Yee catheter secondary to tension from the velasco on the right leg. His right leg was contaminated with urine spill at presentation. He could not urinate and started developing lower abdominal pain and hence presented to the ED. In the ED the catheter was replaced and drained clear yellow urine. In the ED was noted his infected lower extremity wounds. Chronic LLE heel ulcer was also noted. Patient is noncompliant and has not picked of his antibiotic until last evening since discharge. He missed his antibiotic, also he was unkempt at presentation and major contamination of wounds were noted. Patient denies fever/chills/sore throat/cough/chest pain. Patient reports improving abdominal pain after catheter placement. Patient is very hard of hearing and difficult to get history from. Patient was recently discharged, his medications were reviewed from the discharge summary. Patient denied any medication changes since last discharge. Patient reports full code. Plan of care updated to the patient, he is willing to stay in the hospital to sort things out. Allergies Allergy/AdvReac Type Severity Reaction Status Date / Time lisinopril Allergy Severe Swelling Verified 04/07/24 15:49 of Face/Lips/Tongue Home Medications Medication Instructions Recorded Confirmed Type apixaban 5 mg tablet (Eliquis) 5 mg PO BID #60 tabs 08/18/23 04/07/24 Rx atorvastatin 40 mg tablet 40 mg PO QAM #30 tabs 08/18/23 04/07/24 Rx finasteride 5 mg tablet 5 mg PO DAILY #30 tabs 08/18/23 04/07/24 Rx insulin aspart U-100 100 unit/mL 5 unit (0.05 mL) subcut TIDM #15 mL 08/18/23 04/07/24 Rx (3 mL) subcutaneous pen (Novolog FlexPen U-100 Insulin aspart) pantoprazole 40 mg tablet,delayed 40 mg PO DAILY #30 tabs 08/18/23 04/07/24 Rx release tamsulosin 0.4 mg capsule 0.4 mg PO DAILY #30 caps 08/18/23 04/07/24 Rx insulin glargine 100 unit/mL (3 22 unit subcut HS 04/07/24 04/07/24 History mL) subcutaneous pen (Lantus Solostar U-100 Insulin) ciprofloxacin 0.2 %-hydrocortisone 5 drp OTL BID #10 mL 04/11/24 Rx 1 % ear drops,suspension (Cipro HC) metoprolol tartrate 25 mg tablet 12.5 mg (1/2 x 25 mg) PO BID #60 04/11/24 04/07/24 Rx tabs cephalexin 500 mg capsule 500 mg PO BID 5 days #10 caps 04/13/24 Rx ciprofloxacin HCl 0.2 % ear drops 5 drp otic (ear) BID 7 days #14 ea 04/13/24 Rx in a dropperette Past Med/Surg History Problem List (Updated 04/15/24 @ 10:19 by Rito Bush PA-C) Malfunction of Yee catheter (Acute) Hyperglycemia (Acute) Hyponatremia (Acute) Visit for wound care (Acute) Wound of foot (Acute) PAD (peripheral artery disease) Charcot's joint of right foot Ulcer of left foot, limited to breakdown of skin Otitis externa of left ear Elevated lactic acid level (Acute) Acute hyperglycemia (Acute) Acute hyponatremia (Acute) Leukocytosis (Acute) Cellulitis (Acute) Diabetic peripheral neuropathy Chronic indwelling Yee catheter Open wound of both lower extremities Wound myiasis Bilateral lower leg cellulitis Otitis externa Ambulatory dysfunction Indwelling Yee catheter present Severe aortic stenosis Chronic heart failure with preserved ejection fraction (HFpEF) Encounter for mastoidectomy cavity debridement Ear drum perforation Mixed hearing loss Hydronephrosis, bilateral Open wound of left heel Severe hearing loss Aortic stenosis Urinary retention Tick bite of neck Burn of ankle, right, second degree (Acute) Open wound of abdomen (Acute) Blister of finger (Acute) Open wounds of multiple fingers (Acute) Lymphedema (Acute) Homeless (Acute) Traumatic open wound of right lower leg (Acute) BPH (benign prostatic hyperplasia) Edema of both legs Hypertension Paroxysmal atrial fibrillation Diabetes mellitus, type II (Chronic) DVT prophylaxis Hearing loss Dyslipidemia Cellulitis of right anterior lower leg (Acute) Hypophosphatemia Angioedema Medical History Maggot infestation Catheter-associated urinary tract infection Gram-negative bacteremia Acute electrocardiogram changes Elevated troponin CESAR (acute kidney injury) Metabolic encephalopathy High anion gap metabolic acidosis DKA (diabetic ketoacidosis) Admitted to intensive care unit Acute hypokalemia Acute hyperglycemia Puncture wound of foot, right Right foot infection Bacteremia D-dimer, elevated Heart failure with preserved ejection fraction Hypokalemia HTN (hypertension) Moderate aortic stenosis Premature atrial complexes Paroxysmal atrial fibrillation Abnormal urinalysis DVT prophylaxis Volume overload Cellulitis DM type 2 (diabetes mellitus, type 2) Leukocytosis Bilateral edema of lower extremity Elevated brain natriuretic peptide (BNP) level Atrial fibrillation with rapid ventricular response Dyspnea Surgical History History of ear surgery age 19, mastoid H/O shoulder surgery S/P foot surgery, left Family History Brother Diabetes Social History Smoking Status: Former smoker Tobacco Type: Cigarettes Second Hand Exposure: No; Do You Dip or Chew Tobacco: No; Hx Alcohol Use: Yes Alcohol type: beer Hx Substance Use: No Preferred Language: Ukrainian Communication Ability: Impaired Communication Ability Comment: VERY [place]. does well with writing things out to him [employer] Required: No Beliefs That Will Affect Care: None marital status: Current Living Situation: Alone and Homeless Current Living Situation Comment: living in [place] most of time, sometime with daughter How many Children do You have: 3 Feels Safe at Home: Yes Assistive Devices: Glasses Review of Systems Review of Systems: Negative otherwise mentioned in HPI. Physical Exam Physical Exam: GENERAL APPEARANCE: AxOx3 disheveled male, no acute distress. RA NECK: Supple without lymphadenopathy. No stiffness or restricted ROM. HEART: irregular irregular, JESSICA++ LUNGS: CTAB, moving air well. No crackles or wheezes are heard. ABDOMEN: Soft, nontender, nondistended with good bowel sounds heard. BACK: No CVAT, no obvious deformity. EXTREMITIES: Without cyanosis, clubbing, 2+ pitting edema bilateral lower extremities to mid calf NEUROLOGICAL: Grossly nonfocal. Alert and oriented, moving all 4 extremities. CN not formally tested but appear grossly intact.; no sensation to fine touch in BLE, limited to pressure, no proprioception Skin: large horizontal eschar, under left popliteal fossa without signs of superimposed infection, scattered wounds on bilateral anterior shins appears infectious w/ erythema/swelling. No pus noted, left great hallux with tip ulcer/non infective. Lt heel /w unstageable ulcer. Results & Data Results & Data Vital Signs (Past 12 Hours) Vital Signs Temp Pulse Resp BP Pulse Ox O2 Del Method 04/15/24 08:41 54 L 04/15/24 07:25 36.5 C 93 H 16 107/63 98 Room Air Code Status & VTE Plan VTE Prophylaxis Plan VTE Prophylaxis will be ordered: Yes
--- NOTE | 2024-04-15 12:25 | Pharmacy Report ---
Pharmacy Glycemic Short Note 2 - Date of Service April 15, 2024 - Glycemic Short BSG Results (Last 24 hours): 04/15/24 04/15/24 08:35 11:51 Glucose 318 H* POC Glucose 261 H OUTPATIENT ANTIDIABETIC REGIMEN: * Lantus 22 units SC HS * Novolog 5 units TIDM ASSESSMENT: * 78 y/o M admitted today for yee malfunction and bilateral lower extremity cellulitis. He was recently admitted for same cellulitis but did not continue with prescribed antibiotics. He has a history of non-compliance with meds. * On admission to ED this morning, BSG was 318 mg/dl. Most likely he did not take his basal insulin yesterday. * Pre-lunch BSG decreased to 216 mg/dl. Partial dose of basal insulin 8 units ordered this AM today based on stress of 1 and trying to get back to full basal dose for HS to mimic home schedule. 18 units basal ordered for tonight based off of data from previous admissions. Re-assess dosing tomorrow. * Novolog parameters ordered also based off data from recent admission. PLAN FOR INPATIENT GLYCEMIC CONTROL: * Hold outpatient oral diabetes medications * Basal insulin * Lantus 8 units SQ today AM then 18 units at HS. Re-assess dosing tomorrow. * Bolus insulin * NovoLog per scale ACHS or Q6hrs while NPO. Added 00,04 checks * Goal Range: Low 110 mg/dL - High 140 mg/dL * Correction Factor: 40 mg/dL/unit * Nutritional / Prandial insulin per carb ratio of 1 unit per 9 grams CHO consumed
[2024-04-15] MEDS: GADOBUTROL 65ML VIAL IV ONE (14:20)
[2024-04-15] MEDS: LANTUS PER UNIT CHARGE SQ SCH (14:45)
[2024-04-15] MEDS: INSULIN ASPART PER UNIT CHARGE SC SCH (14:45)
[2024-04-15] MEDS: Patient's HEIGHT &/or WEIGHT Needed SCH (14:46)
--- NOTE | 2024-04-15 15:53 | Magnetic Resonance Report ---
MR ankle LT wo/w con HISTORY: 78 years-old Male left heel ulcer, r/o OM Patient presents with heel ulcer and possible ost eomyelitis. COMPARISON: None. TECHNIQUE: Multiplanar multisequence MRI of the left ankle was obtained with and without IV contrast. FINDINGS: Motion degraded exam. There is moderate circumferential subcutaneous edema and skin thickening of the lower leg and ankle. No drainable fluid collections. There is diffuse atrophy of the musculature. Ch ronic long segment split tear of the malleolar and inframalleolar segments of the peroneus brevis. Pe roneus brevis and longus tendinosis. Trace tibialis posterior tenosynovitis. Intact Lisfranc ligament . Thickening of the medial cord plantar fascia compatible with chronic plantar fasciitis. There is en hancement of the subcutaneous and cutaneous tissues medially. Moderate-sized calcaneal enthesophytes. There is mild to moderate multifocal osteoarthritis. Chronic- appearing 8 mm medial talar dome osteochondral defect. There is no acute fracture, dislocation, osseo us erosion or destructive bone lesion. There is a high-grade chondromalacia noted throughout the midf oot and hindfoot with underlying subchondral cystic change and edema. IMPRESSION: 1. No MRI evidence of acute osteomyelitis. 2. Skin thickening with subcutaneous edema may represent cellulitis, venous stasis or lymphedema. No drainable fluid collections. 3. Chronic denervation changes. 4. Mild to moderate osteoarthritis. ACT 112: Negative or not required by law. The above report was generated using voice recognition software. It may contain grammatical, syntax o r spelling errors. Dictated: 04/15/2024 3:07 PM Transcribed: 04/15/2024 3:22 PM Annette [phone] Lakshmi [id number] Electronically signed by: Fabio Simmons M.D. 04/15/2024 3:51 PM
[2024-04-15] MEDS: CIPROFLOXACIN 0.2% OT SCH (17:12)
[2024-04-15] MEDS: LANTUS PER UNIT CHARGE SC SCH (20:33)
[2024-04-15] MEDS: CIPRO 0.2%/HYDROCORTISONE 1% OTIC SUSP 10 ML BTL OTL SCH (20:33)
[2024-04-15] MEDS: APIXABAN 5 MG TABLET PO SCH (20:34)
[2024-04-15] MEDS: METOPROLOL TARTRATE 25 MG TAB PO SCH (20:34)
[2024-04-15] MEDS: CEFEPIME 2,000 MG in SYRINGE 0 ML IV SCH (21:18)
[2024-04-16] MEDS: INSULIN ASPART PER UNIT CHARGE SC SCH (00:16)
[2024-04-16 07:10] LABS: Hematocrit (blood only) 32.8 % (42.0-52.0); Hemoglobin 10.9 g/dl (14.0-18.0); Mean Corpuscular Hemoglobin 28.5 pg (25.0-34.0); Mean Corpuscular Hgb Conc 33.2 g/dL (32.0-36.0); Mean Corpuscular Volume 85.6 fL (80.0-100.0); Mean Platelet Volume 10.7 fL (9.4-12.4); Platelet Count 274 K/uL (130-400); RDW Coefficient of Variation 12.2 % (11.5-14.5); RDW Standard Deviation 37.8 fL (36.4-46.3); Red Blood Count 3.83 M/uL (4.70-6.10); White Blood Count 9.91 K/ul (4.8-10.8)
[2024-04-16 07:33] LABS: BUN Creatinine Ratio 17.7 (10-20); Calcium 8.2 mg/dl (8.6-10.3); Creatinine Clr Calc Pharmacy 38.4 ml/min; Est GFR (African American) 47.8 ml/min; Est GFR (Non-African American) 41.3 ml/min; Magnesium 2.1 mg/dl (1.7-2.4); Phosphorus 3.3 mg/dl (2.5-4.9)
[2024-04-16 07:42] LABS: Estimated Average Glucose 355 mg/dl
[2024-04-16] MEDS: PANTOprazole 40 MG TAB PO SCH (08:30)
[2024-04-16] MEDS: TAMSULOSIN HCL 0.4 MG CAP PO SCH (08:30)
[2024-04-16] MEDS: FINASTERIDE 5 MG TAB PO SCH (08:30)
[2024-04-16] MEDS: ATORVASTATIN 40 MG TAB PO SCH (08:30)
[2024-04-16] MEDS: LANTUS PER UNIT CHARGE SC SCH (08:41)
[2024-04-16] MEDS: DOXYCYCLINE HYCLATE 100 MG CAP PO SCH (08:42)
[2024-04-16] MEDS ORDERED: SODIUM CHLORIDE 0.9% 1,000 ML IV SCH (09:30)
--- NOTE | 2024-04-16 13:13 | Hospitalist Progress Note ---
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 -- Blood culture pending --Wound culture pending Continue IV cefepime Added doxycycline Podiatry consulted Continue wound care PAD --Arterial Doppler 04/07 showed severe stenosis, vascular evaluated in the last admission and did not feel any intervention was warranted. MRI LLE Patient is homeless/unable to care for self/CM consult for DC planning. --Continue Lipitor Add aspirin 81 mg daily Patient was evaluated by vascular surgery on 04/11/2024 and recommended no intervention at the time. Will recommend to follow-up with vascular surgery as outpatient Recent H/O Left Otitis Externa, Maggot infestation of L ear Last admission CT sinus reveals soft tissue swelling, No abscess ENT provided washout on 04/07 in the Operating Room ENT recommendation continue Cipro otic 5 drops in left ear twice daily x 14 days with end date 04/22/2024 with additional follow-up in 1 to 2 weeks as an outpatient. ([phone]) Given noncompliance, will continue Cipro drops to complete the course Chronic Diastolic CHF Moderate to Severe Aortic Stenosis --Echo repeated 04/07: EF 60-65 % with left atrium mildly dilated, aortic valve severely calcified, borderline severe to aortic stenosis is present, compared to previous study in 07/24/23 the severity of aortic stenosis has progressed. Continue metoprolol Not on diuretics at home Monitor volume status closely T2DM, uncontrolled with hyperglycemia and neuropathy Noncompliant with meds HbA1c 14.0 Continue insulin per protocol Monitor BGs PAF Chronic stable Continue Eliquis and metoprolol CKD III Cr stable, baseline ~ 1.7 Avoid nephrotoxic agents Monitor renal function DVT Px Eliquis CODE STATUS Full Code Admission and Anticipated Discharge Date Admission Date: April 15, 2024 Subjective Patient is seen and examined at bedside Poor historian secondary to significant hearing impairment Denies any leg pain Also denies any chest pain, dyspnea, dizziness, nausea, abdominal pain No other complaints Review of Systems Review of Systems: All systems reviewed & are unremarkable except as noted in Subjective Physical Exam Physical Exam: Physical Exam: Vitals signs as noted above General Appearance:Moderately built and nourished, no apparent distress, chronic ill appearing Head: normocephalic, Atraumatic Eyes: normal inspection, EOMI Neck: supple, Trachea midline Respiratory/Chest: Normal breath sounds, CTA, No accessory muscle use Cardiovascular: S1, S2, + murmur Abdomen/GI:Soft, Non tender, Bowel sounds present Extremities/Musculoskeletal:normal inspection, B/L multiple LE wounds,+ edema Neurologic/Psych:AAOX3, grossly no focal neurological deficits, +Decreased hearing Skin: normal color, warm Results & Data Results & Data Vital Signs (Past 12 Hours) Vital Signs Temp Pulse Resp BP Pulse Ox O2 Del Method 04/16/24 07:43 36.5 C 57 L 18 130/78 97 Room Air Laboratory Results Short CBC 04/16/24 Range/Units 06:27 WBC 9.91 (4.8-10.8) K/ul Hgb 10.9 L (14.0-18.0) g/dl Hct 32.8 L (42.0-52.0) % Plt Count 274 (130-400) K/uL BMP 04/16/24 06:27 Sodium 134 L Potassium 4.0 Chloride 100 Carbon Dioxide 29 BUN 28 H Creatinine 1.58 H Glucose 157 H Calcium 8.2 L
--- NOTE | 2024-04-16 21:38 | Podiatry Consultation ---
Date of Consultation April 16, 2024 Assessment & Plan (1) Bilateral lower leg cellulitis: (2) Ulcer of left foot, limited to breakdown of skin: (3) Open wound of left heel: Encounter type: initial encounter Qualified Code(s): S91.302A - Unspecified open wound, left foot, initial encounter (4) Diabetic ulcer of right foot associated with diabetes mellitus due to underlying condition: Diabetic foot ulcer location: heel Non-pressure ulcer stage: limited to breakdown of skin Qualified Code(s): E08.621 - Diabetes mellitus due to underlying condition with foot ulcer; L97.411 - Non-pressure chronic ulcer of right heel and midfoot limited to breakdown of skin (5) Charcot's joint of right foot: Plan Patient seen at bedside. He is hard of hearing but I communicated utilizing a text jackie on the computer. The heel wound was sharply debrided of fibrous slough with a 15 blade at bedside. Wound bed was noted to be granular after debridement. Without any deeper extension or suspicion of deep infection, no surgical intervention is planned. He needs prison wound care and could benefit from following with [facility] Wound Care outpatient. They may consider continued Aquacel Ag versus wound vac. Given his lack of compliance and difficulty with his social situation, he unfortunately may lose this limb if he continues this track. He has severe PAD overall which would not benefit from vascular intervention per vascular medicine. Will continue to follow every few days. Wound care by nursing consult placed; will defer to them for prison wound improvement. Continue IV antibiotics while inpatient for cellulitis associated with these wounds. History of Present Illness Reason for Consultation: B/L lower extremity cellulitis Attending Physician: Bernardo Elizondo MD History of Present Illness Patient seen at bedside. He is hard of hearing and difficult to converse with, though I was able to communicate with him through typing on the computer screen. Has been readmitted because of yee concerns; now also has continued heel ulcer and cellulitis of lower extremities. He has not been taking antibiotics, despite recently coming to the ED and being discharged with an oral antibiotic prescription. Denies performing any care for the foot ulcerations since discharge home. Denies any systemic signs of infection now. Eating dinner, awake, and oriented tonight. Allergies Allergy/AdvReac Type Severity Reaction Status Date / Time lisinopril Allergy Severe Swelling Verified 04/07/24 15:49 of Face/Lips/Tongue Home Medications Medication Instructions Recorded Confirmed Type apixaban 5 mg tablet (Eliquis) 5 mg PO BID #60 tabs 08/18/23 04/07/24 Rx atorvastatin 40 mg tablet 40 mg PO QAM #30 tabs 08/18/23 04/07/24 Rx finasteride 5 mg tablet 5 mg PO DAILY #30 tabs 08/18/23 04/07/24 Rx insulin aspart U-100 100 unit/mL 5 unit (0.05 mL) subcut TIDM #15 mL 08/18/23 04/07/24 Rx (3 mL) subcutaneous pen (Novolog FlexPen U-100 Insulin aspart) pantoprazole 40 mg tablet,delayed 40 mg PO DAILY #30 tabs 08/18/23 04/07/24 Rx release tamsulosin 0.4 mg capsule 0.4 mg PO DAILY #30 caps 08/18/23 04/07/24 Rx insulin glargine 100 unit/mL (3 22 unit subcut HS 04/07/24 04/07/24 History mL) subcutaneous pen (Lantus Solostar U-100 Insulin) ciprofloxacin 0.2 %-hydrocortisone 5 drp OTL BID #10 mL 04/11/24 Rx 1 % ear drops,suspension (Cipro HC) metoprolol tartrate 25 mg tablet 12.5 mg (1/2 x 25 mg) PO BID #60 04/11/24 04/07/24 Rx tabs cephalexin 500 mg capsule 500 mg PO BID 5 days #10 caps 04/13/24 Rx ciprofloxacin HCl 0.2 % ear drops 5 drp otic (ear) BID 7 days #14 ea 04/13/24 Rx in a dropperette Patient History Medical History Maggot infestation Catheter-associated urinary tract infection Gram-negative bacteremia Acute electrocardiogram changes Elevated troponin CESAR (acute kidney injury) Metabolic encephalopathy High anion gap metabolic acidosis DKA (diabetic ketoacidosis) Admitted to intensive care unit Acute hypokalemia Acute hyperglycemia Puncture wound of foot, right Right foot infection Bacteremia D-dimer, elevated Heart failure with preserved ejection fraction Hypokalemia HTN (hypertension) Moderate aortic stenosis Premature atrial complexes Paroxysmal atrial fibrillation Abnormal urinalysis DVT prophylaxis Volume overload Cellulitis DM type 2 (diabetes mellitus, type 2) Leukocytosis Bilateral edema of lower extremity Elevated brain natriuretic peptide (BNP) level Atrial fibrillation with rapid ventricular response Dyspnea Surgical History History of ear surgery age 19, mastoid H/O shoulder surgery S/P foot surgery, left Family History Brother Diabetes Social History Smoking Status: Former smoker Tobacco Type: Cigarettes Smoking End Date: 1979; Second Hand Exposure: No; Do You Dip or Chew Tobacco: No; Tobacco Cessation Education Requested by Patient: No Hx Alcohol Use: Yes Alcohol type: beer Hx Substance Use: No Preferred Language: [place] Communication Ability: Impaired Communication Ability Comment: [employer] Required: No Beliefs That Will Affect Care: None marital status: Current Living Situation: Alone and Homeless Current Living Situation Comment: Living in his care per report How many Children do You have: 3 Other Information That Helps Us Care for You: No Feels Safe at Home: Yes Safety Concerns: Feels Safe At This Time Assistive Devices: Cane, Denture - Upper, Denture - Lower and Glasses Review of Systems Review of Systems: All systems reviewed & are unremarkable except as noted in HPI & below Constitutional: + weakness; no fever, no chills and no f atigue Eyes: no problem reported Ear, Nose, Mouth, Throat: no problem reported Respiratory: no problem reported Cardiovascular: + edema; no problem reported Gastrointestinal: no nausea, no vomiting and no problem reported Musculoskeletal: no problem reported Integumentary: + skin ulcer, + wounds and + erythema Neurologic: + loss of sensation, + numbness and + pa resthesia; no generalized weakness Psychiatric: no problem reported Physical Exam Physical Exam: Lower extremity focused exam: DP/PT pulses nonpalpable, possibly secondary to e kiya. There is calor noted to the bilateral foot. Ulcerations are noted to the right plantar mid foot and left plantar heel. These ulcers appear superficial with local erythema appreciated. No ascending cellulitis aside from a more diffuse erythema to the lower extremity noted overall. No pain is noted on palpation of the bilateral foot. No purulent drainage is appreciated. The wound beds are fibrotic. The right plantar ulceration is smaller, measuring 1 x 2 cm and again superficial. The left plantar heel ulceration is larger and more diffuse, however, also not deeper than the dermis at this time. The ulcer measures 4 x 3 cm in total. The ulceration is fibrotic upon evaluation, but sharply debrided to healthy granular base. Constitutional: WD/WN, vitals as above + ill appearing, + obese and + disheveled Eyes: PERRL, conjunctivae normal, anicteric sclerae ENMT: external ear and nose normal, oropharynx normal Mouth: + poor dentition Neck: trachea midline, no thyromegaly normal visual inspection Respiratory: normal respiratory effort; no respiratory distress Cardiovascular: Rate/Rhythm: regular rate and regular rhythm Chest (Breasts): Chest: normal inspection of chest Gastrointestinal (Abdomen): Inspection/Auscultation: abdomen normal to inspection Percussion/Palpation: + abdomen tender and abdomen soft Musculoskeletal: no cyanosis or clubbing, extremities motor strength 5/5 Head/Neck/Chest: normocephalic and head atraumatic Extremities: extremities normal to inspection Skin: + ulcer, + skin atrophy, + erythema and + nails dystrophic Neurologic: awake; + abnormal sensation to monofilament and no focal motor deficits Psychiatric: A+Ox3, euthymic affect Results & Data Vital Signs (Past 12 Hours) Vital Signs Temp Pulse Resp BP Pulse Ox O2 Del Method 04/16/24 20:25 61 138/72 04/16/24 13:51 36.2 C L 63 18 137/74 94 Room Air
[2024-04-17 06:51] LABS: Hematocrit (blood only) 34.4 % (42.0-52.0); Hemoglobin 11.5 g/dl (14.0-18.0); Mean Corpuscular Hemoglobin 28.6 pg (25.0-34.0); Mean Corpuscular Hgb Conc 33.4 g/dL (32.0-36.0); Mean Corpuscular Volume 85.6 fL (80.0-100.0); Mean Platelet Volume 10.6 fL (9.4-12.4); Platelet Count 283 K/uL (130-400); RDW Standard Deviation 37.4 fL (36.4-46.3); Red Blood Count 4.02 M/uL (4.70-6.10); White Blood Count 11.13 K/ul (4.8-10.8)
[2024-04-17 07:13] LABS: BUN Creatinine Ratio 22.3 (10-20); Calcium 8.5 mg/dl (8.6-10.3); Creatinine Clr Calc Pharmacy 33.9 ml/min; Est GFR (African American) 41.1 ml/min; Est GFR (Non-African American) 35.5 ml/min; Potassium 3.9 mmol/L (3.5-5.1)
[2024-04-17] MEDS: ASPIRIN 81 MG ECTAB PO SCH (08:19)
--- NOTE | 2024-04-17 14:56 | Hospitalist Progress Note ---
Date of Service April 17, 2024 Assessment & Plan (1) Malfunction of Yee catheter: Plan BPH Chronic indwelling Yee Malfunction of yee:: Exchanged on 04/15/24 Follows [facility] [place] u[place] Pt states yee has been chronic for several months and is exchanged routinely Continue tamsulosin, finasteride Continue Yee catheter Bilateral lower extremity cellulitis Open wounds of both lower extremities in setting of diabetic peripheral neuropathy/uncontrolled diabetes/venous stasis Left great toe tip ulcer Left heel unstageable ulcer Patient noncompliant, recently discharged on Cephalexin, 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 --Debridement of left foot ulcer by Dr. Buitrago on 04/17/2024 -- Blood culture: Negative to date --Wound culture: Staph species Continue IV cefepime, doxycycline Appreciate podiatry input Continue wound care Darco shoe, weightbearing as tolerated per podiatry Needs long-term wound care management, wound care clinic follow-up on discharge Continued Aquacel Ag Vs wound vac per podiatry Wound care nurse consulted Explained in detail to the patient/family that if remains noncompliant, patient will risk losing his lower extremity PAD --Arterial Doppler 04/07 showed severe stenosis, vascular evaluated in the last admission and did not feel any intervention was warranted. MRI LLE Patient is homeless/unable to care for self/ consult for DC planning. --Continue Lipitor Add aspirin 81 mg daily Patient was evaluated by vascular surgery on 04/11/2024 and recommended no intervention at the time. Needs follow-up with vascular surgery as outpatient Recent H/O Left Otitis Externa, Maggot infestation of L ear Last admission CT sinus reveals soft tissue swelling, No abscess ENT provided washout on 04/07 in the Operating Room ENT recommendation continue Cipro otic 5 drops in left ear twice daily x 14 days with end date 04/22/2024 with additional follow-up in 1 to 2 weeks as an outpatient. ([phone]) Given noncompliance, will continue Cipro drops to complete the course Chronic Diastolic CHF Moderate to Severe Aortic Stenosis --Echo repeated 04/07: EF 60-65 % with left atrium mildly dilated, aortic valve severely calcified, borderline severe to aortic stenosis is present, compared to previous study in 07/24/23 the severity of aortic stenosis has progressed. Continue metoprolol Not on diuretics at home Monitor volume status closely T2DM, uncontrolled with hyperglycemia and neuropathy Noncompliant with meds HbA1c 14.0 Continue insulin per protocol Monitor BGs PAF Chronic stable Continue Eliquis and metoprolol CKD III Cr stable, baseline ~ 1.7 Avoid nephrotoxic agents Monitor renal function DVT Px Eliquis CODE STATUS Full Code Admission and Anticipated Discharge Date Admission Date: April 15, 2024 Subjective Patient is seen and examined at bedside Poor historian secondary to significant hearing impairment Discussed with patient's at bedside Patient had debridement of left foot ulcer today Denies any leg pain, chest pain, dyspnea, dizziness, nausea, abdominal pain Review of Systems Review of Systems: All systems reviewed & are unremarkable except as noted in Subjective Physical Exam Physical Exam: Physical Exam: Vitals signs as noted above General Appearance:Moderately built and nourished, no apparent distress, chronic ill appearing Head: normocephalic, Atraumatic Eyes: normal inspection, EOMI Neck: supple, Trachea midline Respiratory/Chest: Normal breath sounds, CTA, No accessory muscle use Cardiovascular: S1, S2, + murmur Abdomen/GI:Soft, Non tender, Bowel sounds present Extremities/Musculoskeletal:normal inspection, B/L multiple LE wounds,+ edema Neurologic/Psych:AAOX3, grossly no focal neurological deficits, +Decreased hearing Skin: normal color, warm Results & Data Results & Data Vital Signs (Past 12 Hours) Vital Signs Temp Pulse Resp BP BP Pulse Ox O2 Del Method 04/17/24 14:26 37.1 C 57 L 18 116/61 95 Room Air 04/17/24 07:32 36.8 C 82 16 158/91 H 97 Room Air Laboratory Results Short CBC 04/17/24 Range/Units 05:53 WBC 11.13 H (4.8-10.8) K/ul Hgb 11.5 L (14.0-18.0) g/dl Hct 34.4 L (42.0-52.0) % Plt Count 283 (130-400) K/uL BMP 04/17/24 05:53 Sodium 135 L Potassium 3.9 Chloride 102 Carbon Dioxide 28 BUN 40 H Creatinine 1.79 H Glucose 171 H Calcium 8.5 L
[2024-04-17] MEDS: CARBOHYDRATES FOR HYPOGLYCEMIA PO PRN (16:22)
[2024-04-18 06:22] LABS: Hematocrit (blood only) 35.2 % (42.0-52.0); Hemoglobin 11.5 g/dl (14.0-18.0); Mean Corpuscular Hemoglobin 28.3 pg (25.0-34.0); Mean Corpuscular Hgb Conc 32.7 g/dL (32.0-36.0); Mean Corpuscular Volume 86.5 fL (80.0-100.0); Mean Platelet Volume 10.7 fL (9.4-12.4); Platelet Count 286 K/uL (130-400); RDW Coefficient of Variation 11.9 % (11.5-14.5); RDW Standard Deviation 37.4 fL (36.4-46.3); Red Blood Count 4.07 M/uL (4.70-6.10); White Blood Count 12.03 K/ul (4.8-10.8)
[2024-04-18 06:31] LABS: BUN Creatinine Ratio 18.6 (10-20); Calcium 8.6 mg/dl (8.6-10.3); Creatinine Clr Calc Pharmacy 35.3 ml/min; Est GFR (African American) 43.2 ml/min; Est GFR (Non-African American) 37.3 ml/min
--- NOTE | 2024-04-18 09:38 | Ultrasound Report ---
US venous doppler LE BI CLINICAL HISTORY: left calf tenderness, swelling TECHNIQUE: Bilateral lower extremity real-time compression venous ultrasound with Color Doppler imagi ng. Utilizing real-time ultrasonic imaging multiple real time high-resolution ultrasonic images with compression and noncompression maneuvers of the deep venous system in addition to color doppler imagi ng were performed from the common femoral vein through the proximal calf veins. COMPARISON: None available at the time of this dictation. FINDINGS/IMPRESSION: Currently there is normal compressibility of the deep venous system from the common femoral vein thro ugh the proximal calf veins. Evaluation of the calf veins was limited due to overlying bandaging. ACT 112: Negative or not required by law. Electronically signed by: Anderson Serra M.D. 04/18/2024 9:37 AM
--- NOTE | 2024-04-18 09:51 | Pharmacy Report ---
Pharmacy Glycemic Short Note 2 - Date of Service April 18, 2024 - Glycemic Short BSG Results (Last 24 hours): 04/17/24 04/17/24 04/17/24 11:32 16:19 16:20 Glucose POC Glucose 164 H 52 L* 58 L* 04/17/24 04/17/24 04/17/24 16:41 16:42 16:58 Glucose POC Glucose 64 L* 64 L* 86 04/17/24 04/18/24 04/18/24 20:12 05:39 07:35 Glucose 153 H POC Glucose 168 H 146 H OUTPATIENT ANTIDIABETIC REGIMEN: * Lantus 22 units SC HS * Novolog 5 units TIDM ASSESSMENT: 04/18 * Patient received total of 36 units of insulin yesterday, of which 26 units were basal insulin * Fasting BSG 146 mg/dL - BSGs trending downward yesterday, will scale back slightly on basal today and loosen CR 04/15 * 78 y/o M admitted today for yee malfunction and bilateral lower extremity cellulitis. He was recently admitted for same cellulitis but did not continue with prescribed antibiotics. He has a history of non-compliance with meds. * On admission to ED this morning, BSG was 318 mg/dl. Most likely he did not take his basal insulin yesterday. * Pre-lunch BSG decreased to 216 mg/dl. Partial dose of basal insulin 8 units ordered this AM today based on stress of 1 and trying to get back to full basal dose for HS to mimic home schedule. 18 units basal ordered for tonight based off of data from previous admissions. Re-assess dosing tomorrow. * Novolog parameters ordered also based off data from recent admission. PLAN FOR INPATIENT GLYCEMIC CONTROL: * Hold outpatient oral diabetes medications * Basal insulin * Lantus 22 units * Bolus insulin * NovoLog per scale ACHS or Q6hrs while NPO. * Goal Range: Low 110 mg/dL - High 140 mg/dL * Correction Factor: 40 mg/dL/unit * Nutritional / Prandial insulin per carb ratio of 1 unit per 15 grams CHO consumed
[2024-04-18] MEDS: LANTUS PER UNIT CHARGE SC SCH ×2 (09:54→17:25)
--- NOTE | 2024-04-18 16:34 | Hospitalist Progress Note ---
Date of Service April 18, 2024 Assessment & Plan (1) Malfunction of Yee catheter: Plan BPH Chronic indwelling Yee Malfunction of yee:: Exchanged on 04/15/24 Follows [facility] [place] Pt states yee has been chronic for several months and is exchanged routinely Continue tamsulosin, finasteride Continue Yee catheter Bilateral lower extremity cellulitis Open wounds of both lower extremities in setting of diabetic peripheral neuropathy/uncontrolled diabetes/venous stasis Left great toe tip ulcer Left heel unstageable ulcer Patient noncompliant, recently discharged on Cephalexin, did not pickle cutter until 1 day prior to this admission --Venous Doppler:No evidence of deep venous thrombosis above the knees. --Debridement of left foot ulcer by Dr. Buitrago on 04/17/2024 -- Blood culture: Negative to date --Wound culture: Preliminary culture growing MSSA Continue IV cefepime, doxycycline>>> transition to cefazolin Appreciate podiatry input Continue wound care Darco shoe, weightbearing as tolerated per podiatry Needs long-term wound care management, wound care clinic follow-up on discharge Continued Aquacel Ag Vs wound vac per podiatry Wound care nurse consulted Explained in detail to the patient/family that if remains noncompliant, patient will risk losing his lower extremity Transition to oral antibiotics as able PAD --Arterial Doppler 04/07 showed severe stenosis, vascular evaluated in the last admission and did not feel any intervention was warranted. MRI LLE Patient is homeless/unable to care for self/ consult for DC planning. --Continue Lipitor Add aspirin 81 mg daily Patient was evaluated by vascular surgery on 04/11/2024 and recommended no intervention at the time. Needs follow-up with vascular surgery as outpatient Recent H/O Left Otitis Externa, Maggot infestation of L ear Last admission CT sinus reveals soft tissue swelling, No abscess ENT provided washout on 04/07 in the Operating Room ENT recommendation continue Cipro otic 5 drops in left ear twice daily x 14 days with end date 04/22/2024 with additional follow-up in 1 to 2 weeks as an outpatient. ([phone]) Given noncompliance, will continue Cipro drops to complete the course Chronic Diastolic CHF Moderate to Severe Aortic Stenosis --Echo repeated 04/07: EF 60-65 % with left atrium mildly dilated, aortic valve severely calcified, borderline severe to aortic stenosis is present, compared to previous study in 07/24/23 the severity of aortic stenosis has progressed. Continue metoprolol Not on diuretics at home Monitor volume status closely T2DM, uncontrolled with hyperglycemia and neuropathy Noncompliant with meds HbA1c 14.0 Continue insulin per protocol Monitor BGs PAF Chronic stable Continue Eliquis and metoprolol CKD III Cr stable, baseline ~ 1.7 Avoid nephrotoxic agents Monitor renal function DVT Px Eliquis CODE STATUS Full Code Disposition PT OT prior to discharge Admission and Anticipated Discharge Date Admission Date: April 15, 2024 Subjective Patient is seen and examined at bedside Poor historian secondary to significant hearing impairment States having some heel discomfort at site of debridement today Otherwise no new complaints Wound culture growing Staph aureus Denies any leg pain, chest pain, dyspnea, dizziness, nausea, abdominal pain Review of Systems Review of Systems: All systems reviewed & are unremarkable except as noted in Subjective Physical Exam Physical Exam: Physical Exam: Vitals signs as noted above General Appearance:Moderately built and nourished, no apparent distress, chronic ill appearing Head: normocephalic, Atraumatic Eyes: normal inspection, EOMI Neck: supple, Trachea midline Respiratory/Chest: Normal breath sounds, CTA, No accessory muscle use Cardiovascular: S1, S2, + murmur Abdomen/GI:Soft, Non tender, Bowel sounds present Extremities/Musculoskeletal:normal inspection, B/L multiple LE wounds,+ edema Neurologic/Psych:AAOX3, grossly no focal neurological deficits, +Decreased hearing Skin: normal color, warm Results & Data Results & Data Vital Signs (Past 12 Hours) Vital Signs Temp Pulse Resp BP Pulse Ox O2 Del Method 04/18/24 14:41 36.5 C 57 L 18 115/68 96 Room Air 04/18/24 07:23 36.8 C 69 18 157/83 H 94 Room Air Laboratory Results Short CBC 04/18/24 Range/Units 05:39 WBC 12.03 H (4.8-10.8) K/ul Hgb 11.5 L (14.0-18.0) g/dl Hct 35.2 L (42.0-52.0) % Plt Count 286 (130-400) K/uL BMP 04/18/24 05:39 Sodium 136 Potassium 4.0 Chloride 103 Carbon Dioxide 28 BUN 32 H Creatinine 1.72 H Glucose 153 H Calcium 8.6
[2024-04-18] MEDS: ceFAZolin 2000MG 2,000 MG/15 ML SYR IV SCH (22:15)
--- NOTE | 2024-04-18 22:44 | Podiatry Progress Note ---
Date of Service April 18, 2024 Assessment & Plan (1) Bilateral lower leg cellulitis: (2) Ulcer of left foot, limited to breakdown of skin: (3) Open wound of left heel: (4) Diabetic ulcer of right foot associated with diabetes mellitus due to underlying condition: (5) Charcot's joint of right foot: Plan Patient seen at bedside. He is hard of hearing but I communicated utilizing a text jackie on the computer. - No further surgical intervention is planned at this time. - He should still benefit from continued dressing with care and consideration of advanced healing modalities, once he is discharged. - Discussed with him that he does require oral for the lower extremity cellulitis overall, and that without his compliance, he has had a risk of losing the lower extremities. - This would be multifactorial given his peripheral arterial disease and ulceration and infection history. - Patient verbalized understanding, however, is as been noncompliant with treatment so far which may be suggestive of future concerns as well. - We will sign off on this patient for now, but do not hesitate to reconsult us with any new changes or concerns. Admission and Anticipated Discharge Date Admission Date: April 15, 2024 Subjective patient seen at bedside. No new complaints. Has a good appetite and is actively eating lunch at the time of exam. Denies any new foot and ankle concerns and is overall doing very well on this hospitalization. Review of Systems Constitutional: + weakness; no fever, no chills and no f atigue Eyes: no problem reported Ear, Nose, Mouth, Throat: no problem reported Respiratory: no problem reported Cardiovascular: + edema; no problem reported Gastrointestinal: no nausea, no vomiting and no problem reported Musculoskeletal: no problem reported Integumentary: + skin ulcer, + wounds and + erythema Neurologic: + loss of sensation, + numbness and + pa resthesia; no generalized weakness Psychiatric: no problem reported Physical Exam Physical Exam: Lower extremity focused exam: DP/PT pulses nonpalpable, possibly secondary to edema. There is calor noted to the bilateral foot. Ulcerations are noted to the right plantar mid foot and left plantar heel. These ulcers appear superficial with local erythema appreciated. No ascending cellulitis aside from a more diffuse erythema to the lower extremity noted overall. No pain is noted on palpation of the bilateral foot. No purulent drainage is appreciated. The wound beds are fibrotic. The right plantar ulceration is smaller, measuring 1 x 2 cm and again superficial. The left plantar heel ulceration is larger and more diffuse, however, also not deeper than the dermis at this time. The ulcer measures 4 x 3 cm in total. The ulceration is fibrotic upon evaluation, but sharply debrided to healthy granular base. Constitutional: WD/WN, vitals as above + ill appearing, + obese and + disheveled Eyes: PERRL, conjunctivae normal, anicteric sclerae ENMT: external ear and nose normal, oropharynx normal Mouth: + poor dentition Neck: trachea midline, no thyromegaly normal visual inspection Respiratory: normal respiratory effort; no respiratory distress Cardiovascular: Rate/Rhythm: regular rate and regular rhythm Chest (Breasts): Chest: normal inspection of chest Gastrointestinal (Abdomen): Inspection/Auscultation: abdomen normal to inspection Percussion/Palpation: + abdomen tender and abdomen soft Musculoskeletal: no cyanosis or clubbing, extremities motor strength 5/5 Head/Neck/Chest: normocephalic and head atraumatic Extremities: extremities normal to inspection Skin: + ulcer, + skin atrophy, + erythema and + nails dystrophic Neurologic: awake; + abnormal sensation to monofilament and no focal motor deficits Psychiatric: A+Ox3, euthymic affect Results & Data Results & Data Vital Signs (Past 12 Hours) Vital Signs Temp Pulse Resp BP Pulse Ox O2 Del Method 04/18/24 20:10 37.0 C 60 16 165/93 H 95 Room Air 04/18/24 14:41 36.5 C 57 L 18 115/68 96 Room Air (3) Open wound of left heel Encounter type: initial encounter Qualified Code(s): S91.302A - Unspecified open wound, left foot, initial encounter (4) Diabetic ulcer of right foot associated with diabetes mellitus due to underlying condition Diabetic foot ulcer location: heel Non-pressure ulcer stage: limited to breakdown of skin Qualified Code(s): E08.621 - Diabetes mellitus due to underlying condition with foot ulcer; L97.411 - Non-pressure chronic ulcer of right heel and midfoot limited to breakdown of skin
[2024-04-19 06:53] LABS: Hematocrit (blood only) 35.7 % (42.0-52.0); Hemoglobin 11.8 g/dl (14.0-18.0); Mean Corpuscular Hemoglobin 28.4 pg (25.0-34.0); Mean Corpuscular Hgb Conc 33.1 g/dL (32.0-36.0); Mean Platelet Volume 10.5 fL (9.4-12.4); Platelet Count 278 K/uL (130-400); RDW Coefficient of Variation 12.2 % (11.5-14.5); RDW Standard Deviation 38.5 fL (36.4-46.3); Red Blood Count 4.15 M/uL (4.70-6.10); White Blood Count 11.76 K/ul (4.8-10.8)
[2024-04-19 07:06] LABS: BUN Creatinine Ratio 17.3 (10-20); Calcium 8.7 mg/dl (8.6-10.3); Creatinine Clr Calc Pharmacy 30.1 ml/min; Est GFR (African American) 35.6 ml/min; Est GFR (Non-African American) 30.7 ml/min
[2024-04-19] MEDS: INSULIN ASPART PER UNIT CHARGE SC SCH ×2 (09:15→12:39)
--- NOTE | 2024-04-19 09:29 | Pharmacy Report ---
Pharmacy Glycemic Short Note 2 - Date of Service April 19, 2024 - Glycemic Short BSG Results (Last 24 hours): 04/18/24 04/18/24 04/18/24 11:43 16:23 20:44 Glucose POC Glucose 130 H 224 H 240 H 04/19/24 04/19/24 05:46 07:32 Glucose 99 POC Glucose 107 H OUTPATIENT ANTIDIABETIC REGIMEN: * Lantus 22 units SC HS * Novolog 5 units TIDM ASSESSMENT: 04/19 * Selvin received 26 units of insulin yesterday * Lantus 20 units + novolog 16 units * Fasting BSG of 107 mg/dL is at goal. * Post prandial BSG elevation noted yesterday evening following multiple reductions in insulin dosing after hypoglycemia on 04/17. In the past patient has required tighter carb coverage at breakfast and looser coverage throughout the day. Will trial this. 04/18 * Patient received total of 36 units of insulin yesterday, of which 26 units were basal insulin * Fasting BSG 146 mg/dL - BSGs trending downward yesterday, will scale back slightly on basal today and loosen CR 04/15 * 78 y/o M admitted today for yee malfunction and bilateral lower extremity cellulitis. He was recently admitted for same cellulitis but did not continue with prescribed antibiotics. He has a history of non-compliance with meds. * On admission to ED this morning, BSG was 318 mg/dl. Most likely he did not take his basal insulin yesterday. * Pre-lunch BSG decreased to 216 mg/dl. Partial dose of basal insulin 8 units ordered this AM today based on stress of 1 and trying to get back to full basal dose for HS to mimic home schedule. 18 units basal ordered for tonight based off of data from previous admissions. Re-assess dosing tomorrow. * Novolog parameters ordered also based off data from recent admission. PLAN FOR INPATIENT GLYCEMIC CONTROL: * Basal insulin * Lantus 20 units SC qPM * Bolus insulin * NovoLog per scale ACHS or Q6hrs while NPO. * Goal Range: Low 110 mg/dL - High 140 mg/dL Breakfast * Correction Factor: 40 mg/dL/unit * Nutritional / Prandial insulin per carb ratio of 1 unit per 9 grams CHO consumed Lunch/dinner/HS * Correction Factor: 40 mg/dL/unit * Nutritional / Prandial insulin per carb ratio of 1 unit per 12 grams CHO consumed
[2024-04-19] MEDS: LACTATED RINGER'S 1,000 ML IV ONE (10:59)
[2024-04-19] MEDS: ADVANCED PROBIOTIC 625 MG CAPSULE PO SCH (13:11)
--- NOTE | 2024-04-19 15:28 | Hospitalist Progress Note ---
Date of Service April 19, 2024 Assessment & Plan (1) Malfunction of Yee catheter: Plan BPH Chronic indwelling Yee Malfunction of yee:: Exchanged on 04/15/[address] [facility] [place] Pt states yee has been chronic for several months and is exchanged routinely Continue tamsulosin, finasteride Continue Yee catheter Bilateral lower extremity cellulitis Open wounds of both lower extremities in setting of diabetic peripheral neuropathy/uncontrolled diabetes/venous stasis Left great toe tip ulcer Left heel unstageable ulcer Patient noncompliant, recently discharged on Cephalexin, did not picket labor union until 1 day prior to this admission --Venous Doppler:No evidence of deep venous thrombosis above the knees. --Debridement of left foot ulcer by Dr. Buitrago on 04/17/2024 -- Blood culture: Negative to date --Wound culture: Preliminary culture growing MSSA Continue IV cefepime, doxycycline>>> transition to cefazolin Appreciate podiatry input Darco shoe, weightbearing as tolerated per podiatry Needs long-term wound care management, wound care clinic follow-up on discharge Continued Aquacel Ag Vs wound vac per podiatry Explained in detail to the patient/family that if remains noncompliant, patient will risk losing his lower extremity Transition to oral antibiotics as able Continue wound care Adjust antibiotics based on final cultures Diarrhea Likely due to antibiotics Check stool for C. difficile Monitor volume status IV fluids as needed 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 III Cr stable, baseline ~ 1.7 Cr:2.0 today Likely due to diarrhea Avoid nephrotoxic agents Monitor renal function Gentle IV fluids today PAD --Arterial Doppler 04/07 showed severe stenosis, vascular evaluated in the last admission and did not feel any intervention was warranted. MRI LLE Patient is homeless/unable to care for self/ consult for DC planning. --Continue Lipitor Add aspirin 81 mg daily Patient was evaluated by vascular surgery on 04/11/2024 and recommended no intervention at the time. Needs follow-up with vascular surgery as outpatient Recent H/O Left Otitis Externa, Maggot infestation of L ear Last admission CT sinus reveals soft tissue swelling, No abscess ENT provided washout on 04/07 in the Operating Room ENT recommendation continue Cipro otic 5 drops in left ear twice daily x 14 days with end date 04/22/2024 with additional follow-up in 1 to 2 weeks as an outpatient. ([phone]) Given noncompliance, will continue Cipro drops to complete the course Chronic Diastolic CHF Moderate to Severe Aortic Stenosis --Echo repeated 04/07: EF 60-65 % with left atrium mildly dilated, aortic valve severely calcified, borderline severe to aortic stenosis is present, compared to previous study in 07/24/23 the severity of aortic stenosis has progressed. Continue metoprolol Not on diuretics at home Monitor volume status closely T2DM, uncontrolled with hyperglycemia and neuropathy Noncompliant with meds HbA1c 14.0 Continue insulin per protocol Monitor BGs PAF Chronic stable Continue Eliquis and metoprolol DVT Px Eliquis CODE STATUS Full Code Disposition PT OT prior to discharge Admission and Anticipated Discharge Date Admission Date: April 15, 2024 Subjective Patient is seen and examined at bedside Poor historian secondary to significant hearing impairment Denies any significant leg pain Reports having multiple episodes of diarrhea today Denies any chest pain, dyspnea, dizziness, nausea, abdominal pain Review of Systems Review of Systems: All systems reviewed & are unremarkable except as noted in Subjective Physical Exam Physical Exam: Physical Exam: Vitals signs as noted above General Appearance:Moderately built and nourished, no apparent distress, chronic ill appearing Head: normocephalic, Atraumatic Eyes: normal inspection, EOMI Neck: supple, Trachea midline Respiratory/Chest: Normal breath sounds, CTA, No accessory muscle use Cardiovascular: S1, S2, + murmur Abdomen/GI:Soft, Non tender, Bowel sounds present Extremities/Musculoskeletal:normal inspection, B/L multiple LE wounds,+ edema Neurologic/Psych:AAOX3, grossly no focal neurological deficits, +Decreased hearing Skin: normal color, warm Results & Data Results & Data Vital Signs (Past 12 Hours) Vital Signs Temp Pulse Resp BP Pulse Ox O2 Del Method 04/19/24 08:29 37.1 C 56 L 16 145/82 H 95 Room Air Laboratory Results Short CBC 04/19/24 Range/Units 05:46 WBC 11.76 H (4.8-10.8) K/ul Hgb 11.8 L (14.0-18.0) g/dl Hct 35.7 L (42.0-52.0) % Plt Count 278 (130-400) K/uL BMP 04/19/24 05:46 Sodium 136 Potassium 4.0 Chloride 101 Carbon Dioxide 31 BUN 35 H Creatinine 2.02 H D Glucose 99 Calcium 8.7
[2024-04-20 06:47] LABS: Hematocrit (blood only) 34.4 % (42.0-52.0); Hemoglobin 11.4 g/dl (14.0-18.0); Mean Corpuscular Hemoglobin 28.6 pg (25.0-34.0); Mean Corpuscular Hgb Conc 33.1 g/dL (32.0-36.0); Mean Corpuscular Volume 86.2 fL (80.0-100.0); Mean Platelet Volume 10.3 fL (9.4-12.4); Platelet Count 280 K/uL (130-400); RDW Coefficient of Variation 12.2 % (11.5-14.5); RDW Standard Deviation 38.3 fL (36.4-46.3); Red Blood Count 3.99 M/uL (4.70-6.10); White Blood Count 10.33 K/ul (4.8-10.8)
[2024-04-20 06:58] LABS: BUN Creatinine Ratio 18.1 (10-20); Calcium 8.7 mg/dl (8.6-10.3); Creatinine Clr Calc Pharmacy 26.2 ml/min; Est GFR (African American) 30.1 ml/min; Est GFR (Non-African American) 25.9 ml/min; Potassium 3.9 mmol/L (3.5-5.1)
[2024-04-20] MEDS ORDERED: LOPERAMIDE HCL 2 MG CAP PO PRN (09:45)
[2024-04-20] MEDS ORDERED: ALUMINUM/MAGNESIUM/SIMETH (MAALOX MAX) 30 ML UDC PO PRN (09:45)
[2024-04-20] MEDS: ALUMINUM/MAGNESIUM SUSP 30 ML UDC PO PRN (10:09)
[2024-04-20] MEDS: LACTATED RINGER'S 500 ML IV ONE (10:10)
[2024-04-20 11:39] LABS: Appearance Urine Clear (Clear); Bacteria Urine Automated None Seen (None Seen); Bilirubin Urine Negative (Negative); Blood Urine Trace (Negative); Color Urine Yellow; Epithelial Cell Urine Auto 0-2 /hpf (0-2); Glucose Urine UA 2+ (Negative); Ketones Urine Negative (Negative); Leukocyte Esterase Urine Negative (Negative); Nitrite Urine Negative (Negative); Protein Urine 1+ (Negative); RBC Urine Automated 0-2 /hpf (0-2); Specific Gravity Urine 1.012 (1.000-1.030); Urobilinogen Urine Negative (Negative); WBC Urine Automated 0-5 /hpf (0-5)
[2024-04-20 11:53] LABS: Total Protein Urine Random 38.7 mg/dl (0-11.9); Urine Potassium 24.6 mmol/L
--- NOTE | 2024-04-20 19:29 | Hospitalist Progress Note ---
Date of Service April 20, 2024 Assessment & Plan (1) Malfunction of Eye catheter: Plan Mr. Sebastian is 77-year-old male with PMH of medication noncompliance, T2DM, PAF anticoagulated on Eliquis, chronic HFpEF, moderate to severe aortic stenosis, HTN, HLD, BPH who is admitted due to issues with chronic indwelling yee and BLE cellulitis. #BPH #Chronic indwelling Yee Malfunction of yee:: Exchanged on 04/15/[address] [facility] [place] Pt states yee has been chronic for several months and is exchanged routinely Continue tamsulosin, finasteride Continue Yee catheter #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 III Cr stable, baseline ~ 1.7 Cr:2.0 -->2.32 Likely due to diarrhea Avoid nephrotoxic agents Monitor renal function Gentle IV fluids today again Repeat BMP, if uptrending nephrology consult #Bilateral lower extremity cellulitis #Open wounds of both lower extremities in setting of diabetic peripheral neuropathy/uncontrolled diabetes/venous stasis #Left great toe tip ulcer #Left heel unstageable ulcer Patient noncompliant, recently discharged on Cephalexin, did not brain picker until 1 day prior to this admission --Venous Doppler:No evidence of deep venous thrombosis above the knees. --Debridement of left foot ulcer by Dr. Buitrago on 04/17/2024 -- Blood culture: Negative to date --Wound culture: Preliminary culture growing MSSA Continue cefazolin Appreciate podiatry input Darco shoe, weightbearing as tolerated per podiatry Needs long-term wound care management, wound care clinic follow-up on discharge Continued Aquacel Ag Vs wound vac per podiatry Explained in detail to the patient/family that if remains noncompliant, patient will risk losing his lower extremity Transition to oral antibiotics as able Continue wound care Adjust antibiotics based on final cultures #Diarrhea Likely due to antibiotics, negative c diff Monitor volume status IV fluids as needed #PAD --Arterial Doppler 04/07 showed severe stenosis, vascular evaluated in the last admission and did not feel any intervention was warranted. MRI LLE Patient is homeless/unable to care for self/ consult for DC planning. --Continue Lipitor Add aspirin 81 mg daily Patient was evaluated by vascular surgery on 04/11/2024 and recommended no intervention at the time. Needs follow-up with vascular surgery as outpatient #Recent H/O Left Otitis Externa, Maggot infestation of L ear Last admission CT sinus reveals soft tissue swelling, No abscess ENT provided washout on 04/07 in the Operating Room ENT recommendation continue Cipro otic 5 drops in left ear twice daily x 14 days with end date 04/22/2024 with additional follow-up in 1 to 2 weeks as an outpatient. ([phone]) Given noncompliance, will continue Cipro drops to complete the course #Chronic Diastolic CHF Moderate to Severe Aortic Stenosis --Echo repeated 04/07: EF 60-65 % with left atrium mildly dilated, aortic valve severely calcified, borderline severe to aortic stenosis is present, compared to previous study in 07/24/23 the severity of aortic stenosis has progressed. Continue metoprolol Not on diuretics at home Monitor volume status closely #T2DM, uncontrolled with hyperglycemia and neuropathy Noncompliant with meds HbA1c 14.0 Continue insulin per protocol Monitor BGs #PAF Chronic stable Continue Eliquis and metoprolol DVT Px Eliquis CODE STATUS Full Code Disposition PT OT Admission and Anticipated Discharge Date Admission Date: April 15, 2024 Subjective NAEO Physical Exam Constitutional: WD/WN, vitals as above Respiratory: normal respiratory effort, lungs clear to auscultation Results & Data Results & Data Vital Signs (Past 12 Hours) Vital Signs Temp Pulse Resp BP Pulse Ox O2 Del Method 04/20/24 15:49 36.7 C 61 16 158/80 H 96 Room Air 04/20/24 07:28 36.3 C L 58 L 16 155/83 H 97 Room Air Laboratory Results Short CBC 04/20/24 Range/Units 05:49 WBC 10.33 (4.8-10.8) K/ul Hgb 11.4 L (14.0-18.0) g/dl Hct 34.4 L (42.0-52.0) % Plt Count 280 (130-400) K/uL BMP 04/20/24 05:49 Sodium 135 L Potassium 3.9 Chloride 100 Carbon Dioxide 29 BUN 42 H Creatinine 2.32 H D Glucose 167 H Calcium 8.7 Urine 04/20/24 Range/Units 11:10 Urine Color Yellow Urine Appearance Clear (Clear) Urine pH 6.0 (4.5-7.5) Ur Specific Faison 1.012 (1.000-1.030) Urine Protein 1+ H (Negative) Urine Glucose (UA) 2+ H (Negative) Medications Administered Home Medications Medication Instructions Recorded Confirmed Last Taken apixaban 5 mg tablet (Eliquis) 5 mg PO BID #60 tabs 08/18/23 04/07/24 Unknown atorvastatin 40 mg tablet 40 mg PO QAM #30 tabs 08/18/23 04/07/24 Unknown finasteride 5 mg tablet 5 mg PO DAILY #30 tabs 08/18/23 04/07/24 Unknown insulin aspart U-100 100 unit/mL 5 unit (0.05 mL) subcut TIDM #15 mL 08/18/23 04/07/24 Unknown (3 mL) subcutaneous pen (Novolog FlexPen U-100 Insulin aspart) pantoprazole 40 mg tablet,delayed 40 mg PO DAILY #30 tabs 08/18/23 04/07/24 Unknown release tamsulosin 0.4 mg capsule 0.4 mg PO DAILY #30 caps 08/18/23 04/07/24 Unknown insulin glargine 100 unit/mL (3 22 unit subcut HS 04/07/24 04/07/24 Unknown mL) subcutaneous pen (Lantus Solostar U-100 Insulin) ciprofloxacin 0.2 %-hydrocortisone 5 drp OTL BID #10 mL 04/11/24 Unknown 1 % ear drops,suspension (Cipro HC) metoprolol tartrate 25 mg tablet 12.5 mg (1/2 x 25 mg) PO BID #60 04/11/24 04/07/24 Unknown tabs cephalexin 500 mg capsule 500 mg PO BID 5 days #10 caps 04/13/24 Unknown ciprofloxacin HCl 0.2 % ear drops 5 drp otic (ear) BID 7 days #14 ea 04/13/24 Unknown in a dropperette Active Medications Generic Name Dose Route Start Last Admin Trade Name Freq PRN Reason Stop Dose Admin Al Hydrox/Mg Hydrox/Simethicone 15 ml 04/15/24 10:22 04/20/24 16:37 Aluminum/Magnesium Susp 30 Ml Udc PO 05/15/24 10:21 15 ml Q4H PRN Administration Dyspepsia, gas Apixaban 5 mg 04/15/24 21:00 04/20/24 09:27 Apixaban 5 Mg Tablet PO 05/15/24 20:59 5 mg BID DARIN Administration Aspirin 81 mg 04/17/24 09:00 04/20/24 09:28 Aspirin 81 Mg Ectab PO 05/17/24 08:59 81 mg QAM DARIN Administration Atorvastatin Calcium 40 mg 04/16/24 09:00 04/20/24 09:28 Atorvastatin 40 Mg Tab PO 05/16/24 08:59 40 mg QAM DARIN Administration Ciprofloxacin/Hydrocortisone 3 drops 04/15/24 21:00 04/20/24 09:27 Cipro 0.2%/Hydrocortisone 1% Otic Susp 10 Ml Btl OTL 05/15/24 20:59 3 drops BID DARIN Administration Finasteride 5 mg 04/16/24 09:00 04/20/24 09:28 Finasteride 5 Mg Tab PO 05/16/24 08:59 5 mg DAILY DARIN Administration Cefazolin Sodium 2,000 mg in 15 mls @ 3.75 mls/min 04/18/24 21:00 04/20/24 09:27 Ancef 2000mg IV 04/25/24 20:59 3.75 mls/min Q12 DARIN Administration Insulin Aspart 0 units 04/19/24 07:30 04/20/24 09:27 Insulin Aspart Per Unit Charge FL 05/19/24 07:29 7 units DAILY@0730 DARIN Administration Insulin Aspart 0 units 04/19/24 11:30 04/20/24 17:46 Insulin Aspart Per Unit Charge SC 05/19/24 11:29 7 units 1130,1630,2130 DARIN Administration Lactobacillus Acidophilus 1,250 mg 04/19/24 12:00 04/20/24 09:27 Advanced Probiotic 625 Mg Capsule PO 05/19/24 11:59 1,250 mg DAILY DARIN Administration Metoprolol Tartrate 12.5 mg 04/15/24 21:00 04/20/24 09:28 Metoprolol Tartrate 25 Mg Tab PO 05/15/24 20:59 12.5 mg BID DARIN Administration Miscellaneous 15 - 30 gm 04/15/24 10:22 04/17/24 16:22 Carbohydrates For Hypoglycemia PO 05/15/24 10:21 30 gm UD PRN Administration Hypoglycemia Protocol Pantoprazole Sodium 40 mg 04/16/24 09:00 04/20/24 09:28 Pantoprazole 40 Mg Tab PO 05/16/24 08:59 40 mg DAILY DARIN Administration Tamsulosin HCl 0.4 mg 04/16/24 09:00 04/20/24 09:28 Tamsulosin Hcl 0.4 Mg Cap PO 05/16/24 08:59 0.4 mg DAILY DARIN Administration
[2024-04-20] MEDS: LANTUS PER UNIT CHARGE SC SCH (21:01)
[2024-04-21 06:46] LABS: Hematocrit (blood only) 34.5 % (42.0-52.0); Hemoglobin 11.4 g/dl (14.0-18.0); Mean Corpuscular Hemoglobin 28.2 pg (25.0-34.0); Mean Corpuscular Volume 85.4 fL (80.0-100.0); Mean Platelet Volume 10.7 fL (9.4-12.4); Platelet Count 282 K/uL (130-400); RDW Coefficient of Variation 12.1 % (11.5-14.5); RDW Standard Deviation 38.1 fL (36.4-46.3); Red Blood Count 4.04 M/uL (4.70-6.10); White Blood Count 10.53 K/ul (4.8-10.8)
[2024-04-21 07:09] LABS: BUN Creatinine Ratio 24.6 (10-20); Calcium 8.8 mg/dl (8.6-10.3); Creatinine Clr Calc Pharmacy 30.6 ml/min; Est GFR (African American) 36.2 ml/min; Est GFR (Non-African American) 31.2 ml/min; Magnesium 2.1 mg/dl (1.7-2.4); Phosphorus 3.1 mg/dl (2.5-4.9)
--- NOTE | 2024-04-21 09:45 | Pharmacy Report ---
Pharmacy Glycemic Short Note 2 - Date of Service April 21, 2024 - Glycemic Short BSG Results (Last 24 hours): 04/20/24 04/20/24 04/20/24 12:47 16:31 20:37 Glucose POC Glucose 194 H 189 H 129 H 04/21/24 04/21/24 05:42 07:48 Glucose 154 H POC Glucose 153 H OUTPATIENT ANTIDIABETIC REGIMEN: * Lantus 22 units SC HS * Novolog 5 units TIDM * Non-adherence noted * HbA1c 14% on 04/16/24 ASSESSMENT: 04/20 * Stressors stable. Possible discharge today per discussion w Dr. Sanches * AM fasting BSG above goal, but only slightly and trending down. Lantus was increased to home dose yesterday - no change for now * Post prandial BSG's >180 mg/dL x2 yesterday. Will very slightly tighten Novolog with lunch, dinner, and HS. 04/19 * Selvin received 26 units of insulin yesterday * Lantus 20 units + novolog 16 units * Fasting BSG of 107 mg/dL is at goal. * Post prandial BSG elevation noted yesterday evening following multiple reductions in insulin dosing after hypoglycemia on 04/17. In the past patient has required tighter carb coverage at breakfast and looser coverage throughout the day. Will trial this. 04/18 * Patient received total of 36 units of insulin yesterday, of which 26 units were basal insulin * Fasting BSG 146 mg/dL - BSGs trending downward yesterday, will scale back slightly on basal today and loosen CR 04/15 * 78 y/o M admitted today for yee malfunction and bilateral lower extremity cellulitis. He was recently admitted for same cellulitis but did not continue with prescribed antibiotics. He has a history of non-compliance with meds. * On admission to ED this morning, BSG was 318 mg/dl. Most likely he did not take his basal insulin yesterday. * Pre-lunch BSG decreased to 216 mg/dl. Partial dose of basal insulin 8 units ordered this AM today based on stress of 1 and trying to get back to full basal dose for HS to mimic home schedule. 18 units basal ordered for tonight based off of data from previous admissions. Re-assess dosing tomorrow. * Novolog parameters ordered also based off data from recent admission. PLAN FOR INPATIENT GLYCEMIC CONTROL: * Basal insulin * Lantus 22 units SC qPM * Bolus insulin * NovoLog per scale ACHS or Q6hrs while NPO. * Goal Range: Low 110 mg/dL - High 140 mg/dL Breakfast * Correction Factor: 40 mg/dL/unit * Nutritional / Prandial insulin per carb ratio of 1 unit per 9 grams CHO consumed Lunch/dinner/HS * Correction Factor: 40 mg/dL/unit * Nutritional / Prandial insulin per carb ratio of 1 unit per 11 grams CHO consumed
[2024-04-21 16:35] VITALS: TEMP 97.5
--- NOTE | 2024-04-21 17:51 | Hospitalist Progress Note ---
Date of Service April 21, 2024 Assessment & Plan (1) Malfunction of Yee catheter: Plan Mr. Sebastian is 77-year-old male with PMH of medication noncompliance, T2DM, PAF anticoagulated on Eliquis, chronic HFpEF, moderate to severe aortic stenosis, HTN, HLD, BPH who is admitted due to issues with chronic indwelling yee and BLE cellulitis. #BPH #Chronic indwelling Yee Malfunction of yee:: Exchanged on 04/15/24 Follows [facility] [place] Pt states yee has been chronic for several months and is exchanged routinely Continue tamsulosin, finasteride Continue Yee catheter #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 III Cr stable, baseline ~ 1.7 Cr:2.0 -->2.32-->> 1.99 Likely due to diarrhea Avoid nephrotoxic agents Monitor renal function Gentle IV fluids today again Repeat BMP #Bilateral lower extremity cellulitis #Open wounds of both lower extremities in setting of diabetic peripheral neuropathy/uncontrolled diabetes/venous stasis #Left great toe tip ulcer #Left heel unstageable ulcer Patient noncompliant, recently discharged on Cephalexin, did not picker until 1 day prior to this admission --Venous Doppler:No evidence of deep venous thrombosis above the knees. --Debridement of left foot ulcer by Dr. Buitrago on 04/17/2024 -- Blood culture: Negative to date --Wound culture: Preliminary culture growing MSSA Continue cefazolin Appreciate podiatry input Darco shoe, weightbearing as tolerated per podiatry Needs long-term wound care management, wound care clinic follow-up on discharge Continued Aquacel Ag Vs wound vac per podiatry Explained in detail to the patient/family that if remains noncompliant, patient will risk losing his lower extremity Transition to oral antibiotics as able Continue wound care Adjust antibiotics based on final cultures Plan to administer IV dalbavarcin upon dishcagre #Diarrhea *improved Likely due to antibiotics, negative c diff Monitor volume status IV fluids as needed #PAD --Arterial Doppler 04/07 showed severe stenosis, vascular evaluated in the last admission and did not feel any intervention was warranted. MRI LLE Patient is homeless/unable to care for self/CM consult for DC planning. --Continue Lipitor Add aspirin 81 mg daily Patient was evaluated by vascular surgery on 04/11/2024 and recommended no intervention at the time. Needs follow-up with vascular surgery as outpatient #Recent H/O Left Otitis Externa, Maggot infestation of L ear Last admission CT sinus reveals soft tissue swelling, No abscess ENT provided washout on 04/07 in the Operating Room ENT recommendation continue Cipro otic 5 drops in left ear twice daily x 14 days with end date 04/22/2024 with additional follow-up in 1 to 2 weeks as an outpatient. ([phone]) Given noncompliance, will continue Cipro drops to complete the course #Chronic Diastolic CHF Moderate to Severe Aortic Stenosis --Echo repeated 04/07: EF 60-65 % with left atrium mildly dilated, aortic valve severely calcified, borderline severe to aortic stenosis is present, compared to previous study in 07/24/23 the severity of aortic stenosis has progressed. Continue metoprolol Not on diuretics at home Monitor volume status closely #T2DM, uncontrolled with hyperglycemia and neuropathy Noncompliant with meds HbA1c 14.0 Continue insulin per protocol Monitor BGs #PAF Chronic stable Continue Eliquis and metoprolol DVT Px Eliquis CODE STATUS Full Code Disposition home, refuses rehab Admission and Anticipated Discharge Date Admission Date: April 15, 2024 Subjective NAEO, denies any new symptoms Agrees for discharge in am with plans to go to [facility] for IV dalbavarcin Physical Exam Constitutional: WD/WN, vitals as above Respiratory: normal respiratory effort, lungs clear to auscultation Cardiovascular: RRR, no murmur, no edema Results & Data Results & Data Vital Signs (Past 12 Hours) Vital Signs Temp Pulse Resp BP Pulse Ox O2 Del Method 04/21/24 16:31 36.4 C L 66 16 158/78 H 98 Room Air 04/21/24 08:04 36.6 C 60 16 159/83 H 96 Room Air Laboratory Results Short CBC 04/21/24 Range/Units 05:42 WBC 10.53 (4.8-10.8) K/ul Hgb 11.4 L (14.0-18.0) g/dl Hct 34.5 L (42.0-52.0) % Plt Count 282 (130-400) K/uL BMP 04/21/24 05:42 Sodium 135 L Potassium 4.0 Chloride 100 Carbon Dioxide 29 BUN 49 H Creatinine 1.99 H D Glucose 154 H Calcium 8.8
[2024-04-21 20:11] VITALS: RESP 18; O2SAT 97
[2024-04-22 07:48] VITALS: PULSE 60
[2024-04-22 08:18] LABS: Hematocrit (blood only) 38.5 % (42.0-52.0); Hemoglobin 12.7 g/dl (14.0-18.0); Mean Corpuscular Hemoglobin 28.5 pg (25.0-34.0); Mean Corpuscular Volume 86.3 fL (80.0-100.0); Mean Platelet Volume 10.1 fL (9.4-12.4); Platelet Count 290 K/uL (130-400); RDW Coefficient of Variation 12.1 % (11.5-14.5); RDW Standard Deviation 38.5 fL (36.4-46.3); Red Blood Count 4.46 M/uL (4.70-6.10); White Blood Count 10.33 K/ul (4.8-10.8)
[2024-04-22 08:33] LABS: BUN Creatinine Ratio 27.1 (10-20); Calcium 9.1 mg/dl (8.6-10.3); Creatinine Clr Calc Pharmacy 36.7 ml/min; Est GFR (African American) 45.1 ml/min; Est GFR (Non-African American) 38.9 ml/min
[2024-04-22] MEDS: INSULIN ASPART PER UNIT CHARGE SC SCH (12:44)
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
[2024-04-22 14:50] VITALS: BP 158/80
== END 2024-04-22 17:43 | disposition home or self-care (01) | DRG 699 ==
LOC: ED 07:22 → 3N 10:22 → SUATTDRO 10:22 → 3N 12:22
DX: I50.32 Chronic diastolic (congestive) heart failure; E11.22 Type 2 diabetes mellitus with diabetic chronic kidney disease; N40.1 Benign prostatic hyperplasia with lower urinary tract symptoms; K52.1 Toxic gastroenteritis and colitis; L03.116 Cellulitis of left lower limb; L97.521 Non-pressure chronic ulcer of other part of left foot limited to breakdown of skin; T36.95XA Adverse effect of unspecified systemic antibiotic, initial encounter; E11.51 Type 2 diabetes mellitus with diabetic peripheral angiopathy without gangrene; I35.0 Nonrheumatic aortic (valve) stenosis; L03.115 Cellulitis of right lower limb; Y92.009 Unspecified place in unspecified non-institutional (private) residence as the place of occurrence of the external cause; Y81.2 Prosthetic and other implants, materials and accessory general- and plastic-surgery devices associated with adverse incidents; D72.829 Elevated white blood cell count, unspecified; T83.021A Displacement of indwelling urethral catheter, initial encounter; I87.2 Venous insufficiency (chronic) (peripheral); Z91.148 Patient's other noncompliance with medication regimen for other reason; Z59.02 Unsheltered homelessness; I48.0 Paroxysmal atrial fibrillation; E11.618 Type 2 diabetes mellitus with other diabetic arthropathy; E11.65 Type 2 diabetes mellitus with hyperglycemia; H91.90 Unspecified hearing loss, unspecified ear; Y92.239 Unspecified place in hospital as the place of occurrence of the external cause; Z79.4 Long term (current) use of insulin; Z88.8 Allergy status to other drugs, medicaments and biological substances; Z87.891 Personal history of nicotine dependence; N17.9 Acute kidney failure, unspecified; E87.1 Hypo-osmolality and hyponatremia; Z79.01 Long term (current) use of anticoagulants; E11.621 Type 2 diabetes mellitus with foot ulcer; R33.9 Retention of urine, unspecified; L97.428 Non-pressure chronic ulcer of left heel and midfoot with other specified severity; N18.30 Chronic kidney disease, stage 3 unspecified

== ENCOUNTER 2024-05-11 21:17 | Inpatient (IN) ==
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
[2024-05-11 23:19] LABS: Basophils # (auto) 0.06 K/uL (0.00-0.20); Basophils % (auto) 0.5 %; Eosinophils # (auto) 0.31 K/uL (0.00-0.50); Eosinophils % (auto) 2.5 %; Hemoglobin 12.1 g/dl (14.0-18.0); Immature Granulocytes # (auto) 0.04 K/uL (0.01-0.20); Immature Granulocytes % (auto) 0.3 %; Lymphocytes # (auto) 2.64 K/uL (1.20-3.40); Lymphocytes % (auto) 21.2 %; Mean Corpuscular Hemoglobin 28.5 pg (25.0-34.0); Mean Corpuscular Hgb Conc 32.7 g/dL (32.0-36.0); Mean Corpuscular Volume 87.3 fL (80.0-100.0); Mean Platelet Volume 9.9 fL (9.4-12.4); Monocytes # (auto) 0.81 K/uL (0.11-0.59); Monocytes % (auto) 6.5 %; Neutrophils # (auto) 8.62 K/uL (1.40-6.50); Platelet Count 282 K/uL (130-400); RDW Standard Deviation 40.7 fL (36.4-46.3); Red Blood Count 4.24 M/uL (4.70-6.10); White Blood Count 12.48 K/ul (4.8-10.8)
[2024-05-11 23:51] LABS: Alanine Aminotransferase 16 U/L (7-52); Albumin Globulin Ratio 0.8 (0.9-2); Albumin Level 3.5 gm/dl (3.4-5.0); Alkaline Phosphatase 135 U/L (34-104); Anion Gap 7 (3-11); Aspartate Aminotransferase 26 U/L (13-39); BUN Creatinine Ratio 16.8 (10-20); Bilirubin,Total 0.6 mg/dl (0.2-1.0); Blood Urea Nitrogen 23 mg/dl (6-23); Carbon Dioxide 25 mmol/L (21-32); Chloride 101 mmol/L (98-107); Est GFR (African American) 56.9 ml/min; Est GFR (Non-African American) 49.1 ml/min; Globulin 4.2 gm/dl (2.5-4.0); Glucose 311 mg/dl (70-99(Fasting)); Potassium 4.4 mmol/L (3.5-5.1); Sodium 133 mmol/L (136-145); Total Protein 7.7 gm/dl (6.0-8.3)
[2024-05-11] MEDS: ACETAMINOPHEN 1,000 MG/100 ML VIAL IV STA (23:56)
[2024-05-12 00:48] LABS: Appearance Urine Clear (Clear); Bacteria Urine Automated None Seen (None Seen); Bilirubin Urine Negative (Negative); Blood Urine 2+ (Negative); Color Urine Yellow; Epithelial Cell Urine Auto 0-2 /hpf (0-2); Glucose Urine UA 3+ (Negative); Ketones Urine Negative (Negative); Leukocyte Esterase Urine 2+ (Negative); Nitrite Urine Negative (Negative); Protein Urine 1+ (Negative); RBC Urine Automated >20 /hpf (0-2); Specific Gravity Urine 1.021 (1.000-1.030); Urobilinogen Urine Negative (Negative); WBC Urine Automated >50 /hpf (0-5); pH Urine 6.5 (4.5-7.5)
[2024-05-12 00:51] LABS: C Reactive Protein 1.55 mg/dl (0-0.5)
--- NOTE | 2024-05-12 01:40 | CT Scan Report ---
Exam(s): CT L SPINE EXAM: CT Lumbar Spine Without Intravenous Contrast CLINICAL HISTORY: Reason for exam: Trauma. TECHNIQUE: Axial computed tomography images of the lumbar spine without intravenous contrast. CTDI is 35 mGy and DLP is 1098 mGy-cm. Automated exposure control was utilized for the study. A dose lowering technique was utilized adhering to the principles of ALARA. COMPARISON: No relevant prior studies available. FINDINGS: The vertebral body heights are maintained. The lumbar lordosis is preserved. There is no spondylolisthesis. The posterior elements are maintained, without evidence of acute fracture. The pedicles are intact. Multilevel lumbar spondylosis and degenerative disc disease. IMPRESSION: No acute fracture or subluxation of the lumbar spine. Note, there is a fracture involving the infra endplate of T12 on the concomitant CT abdomen pelvis. Electronically signed by: Shawn Trotter MD 05/12/24 01:39 AM
--- NOTE | 2024-05-12 01:41 | CT Scan Report ---
Exam(s): CT HEAD Without Contrast EXAM: CT Head Without Intravenous Contrast CLINICAL HISTORY: Reason for exam: Trauma. TECHNIQUE: Axial computed tomography images of the head/brain without intravenous contrast. CTDI is 35 mGy and DLP is 1098 mGy-cm. Automated exposure control was utilized for the study. A dose lowering technique was utilized adhering to the principles of ALARA. COMPARISON: No relevant prior studies available. FINDINGS: No acute intracranial hemorrhage. No midline shift or mass effect. The territorial franco-white matter differentiation is maintained throughout. Age-related cerebral volume loss. Periventricular and subcortical white matter hypoattenuation, consistent with chronic microangiopathy. The visualized orbits appear grossly unremarkable. The calvarium is intact. The visualized paranasal sinuses and mastoid air cells are grossly clear. IMPRESSION: No acute intracranial hemorrhage, midline shift, or mass effect. Electronically signed by: Shawn Trotter MD 05/12/24 01:40 AM
--- NOTE | 2024-05-12 01:43 | CT Scan Report ---
Exam(s): CT CHEST Without Contrast EXAM: CT Chest Without Intravenous Contrast CLINICAL HISTORY: Reason for exam: lower posterior rib pain, fall. TECHNIQUE: Axial computed tomography images of the chest without intravenous contrast. CTDI is 35 mGy and DLP is 1098 mGy-cm. Automated exposure control was utilized for the study. A dose lowering technique was utilized adhering to the principles of ALARA. COMPARISON: No relevant prior studies available. FINDINGS: Lungs: Unremarkable. No mass. No consolidation. Pleural space: Unremarkable. No pneumothorax. No significant effusion. Heart: Cardiomegaly. No significant pericardial effusion. No significant coronary artery calcifications. Mediastinum: Small hiatal hernia. Bones/joints: Acute fracture involving the inferior endplate of T12. Degenerative changes of the spine. No dislocation. Soft tissues: Unremarkable. Vasculature: Atherosclerotic changes of the aorta. No thoracic aortic aneurysm. Lymph nodes: Unremarkable. No enlarged lymph nodes. IMPRESSION: Acute fracture involving the inferior endplate of T12. Electronically signed by: Shawn Trotter MD 05/12/24 01:43 AM
--- NOTE | 2024-05-12 01:45 | CT Scan Report ---
Exam(s): CT ABDOMEN + PELVIS Without Contrast EXAM: CT Abdomen and Pelvis Without Intravenous Contrast CLINICAL HISTORY: Reason for exam: Traum, fall. TECHNIQUE: Axial computed tomography images of the abdomen and pelvis without intravenous contrast. CTDI is 35 mGy and DLP is 1098 mGy-cm. Automated exposure control was utilized for the study. A dose lowering technique was utilized adhering to the principles of ALARA. COMPARISON: No relevant prior studies available. FINDINGS: Lung bases: Unremarkable. No mass. No consolidation. ABDOMEN: Liver: Unremarkable. Gallbladder and bile ducts: Unremarkable. No calcified stones. No ductal dilation. Pancreas: Unremarkable. No ductal dilation. Spleen: Unremarkable. No splenomegaly. Adrenals: Unremarkable. No mass. Kidneys and ureters: Unremarkable. No obstructing stones. No hydronephrosis. Stomach and bowel: Diverticulosis, without acute diverticulitis. No small bowel obstruction. No free intraperitoneal air. PELVIS: Appendix: No findings to suggest acute appendicitis. Bladder: Hanna catheter terminates in a decompressed urinary bladder which demonstrate mild wall thickening. Correlate for UTI. No stones. Reproductive: Unremarkable as visualized. ABDOMEN and PELVIS: Intraperitoneal space: Unremarkable. No free air. No significant fluid collection. Bones/joints: Nondisplaced fracture involving the infra and plate of T12. Degenerative changes of the spine. No dislocation. Soft tissues: Moderate fat-containing RIGHT inguinal hernia. Vasculature: Atherosclerotic changes of the aorta. No abdominal aortic aneurysm. Lymph nodes: Unremarkable. No enlarged lymph nodes. IMPRESSION: 1. Hanna catheter terminates in a decompressed urinary bladder which demonstrate mild wall thickening. Correlate for UTI. 2. Nondisplaced fracture involving the infra and plate of T12. 3. Diverticulosis, without acute diverticulitis. No small bowel obstruction. No free intraperitoneal air. Electronically signed by: Shawn Trotter MD 05/12/24 01:44 AM
[2024-05-12] MEDS: cefTRIAXone SODIUM 2,000 MG/50 ML BAG IV STA (02:00)
--- NOTE | 2024-05-12 02:00 | Emergency Department Note ---
Impression & Plan Fall, Hyperglycemia, Diabetic ulcer of left heel, Acute UTI (urinary tract infection), Closed T12 fracture, Leukocytosis ED Provider Note NAME: KATHARINE VANN AGE: 78 SEX: Male INFORMANT: Patient ED PROVIDER(S): Sarbjit Au MD CHIEF COMPLAINT: Back pain PLAN: Disposition: Admitted Outpatient prescription management: none Referral: None MEDICAL DECISION MAKING: Patient was evaluated. He had some mild discomfort in the flank area. He is very hard of hearing. He was describing chills. Blood work revealed a leukocytosis. Urinary catheter was present and had puslike urine. Urinalysis concerning for infection. Patient has a significant left heel ulcer. X-ray imaging did not reveal obvious osteo or subcutaneous gas. Patient's inflammatory markers are elevated. Patient was initially ordered Rocephin however this was not administered and changed to meropenem based upon prior culture results where the patient grew out a Pseudomonas, Staph aureus, and Serratia. Patient was hydrated. Hyperglycemia was treated with IV insulin. CT imaging of the chest, abdomen and pelvis, and lumbar spine performed. Head CT also performed. Patient was found to have cystitis as well as an endplate fracture of T12. Given the fact that the endplate fracture is over a week old emergent spine evaluation tonight was deferred. Pain management was done with IV acetaminophen. Patient and updated on findings. Further management in the hospital will be necessary. Consultation was placed with Dr. Gerald Hagan, [facility] hospitalist service. Case discussed and diagnostics were reviewed. He will evaluate the patient for further management Care/management discussed with: cultural centre manager Level of care consideration(s): After review of the information above and other included data, I feel the patient requires escalation of care to admission. Triage Nursing notes: reviewed and agree them. Vital Signs: reviewed and remarkable for hypertension Additional History obtained from: Patient's . Patient's states the patient prefers to live in his car down by the [place] and Chronic Medical/Social Conditions affecting care: Diabetes Prior/ Outside/ External records reviewed: Prior culture records reviewed. Patient has had a Serratia Proteus UTI. He had a Pseudomonas from the left heel. Patient also had a Staph aureus that was pansensitive from the leg. Differential Diagnosis: Contusion, fracture, infection, dehydration, metabolic abnormality, hypo/hyperglycemia, electrolyte disturbance, anemia, hypoxia, cardiac sources, intracerebral event, toxicologic, neurologic, as well as other pathologies. Diagnostics, independently interpreted by me: ECG: Twelve-lead ECG reveals a normal sinus rhythm at 66 bpm. Right bundle branch block and anterior fascicular block. When compared to prior ECG the anterolateral T wave inversions have resolved. Cardiac Monitoring: Cardiac monitoring ordered by me: The patient was placed on continuous cardiac monitoring and observed. It revealed a normal sinus rhythm at 63 beats per minute without ectopy or evidence of dysrhythmia. Medical decision rules: none Imaging studies: Extremity of the left heel is negative for obvious bony destruction consistent with osteomyelitis. Chest x-ray. Findings: A chest x-ray was performed and revealed no pneumothorax, effusion, infiltrate, pulmonary edema, free air under the diaphragm, or wide mediastinum. Impression: No acute disease. CT imaging of the chest is negative for pneumonia or pneumothorax. No obvious rib fracture. There is an endplate fracture of T12. Head CT: A noncontrast CT scan of the head was performed and was negative for tumor, fracture, intracranial hemorrhage, or other acute pathology. I refer you to the EMR for further details. HPI: 78 year old Male arrives for evaluation of back pain after fall. Patient reportedly fell a week ago after losing his balance. He has been complaining of flank and back pain. Patient also feels chilled. Patient has a chronic indwelling Hanna catheter. He also has been dealing with a left heel ulcer. Patient is diabetic. Pain is reported as a 2/10 pain is worse with movement. Pt denies LOC, fever, headache, visual changes, neck pain, chest pain, breathing difficulties, nausea, vomiting, abdominal pain, extremity pain, weakness, active bleeding, or other complaints. PAST MEDICAL HISTORY: See Below, diabetes PAST SURGICAL HISTORY: See Below, SOCIAL HISTORY: See Below, but does not live with his . Patient lives in his car down with a [place]. HOME MEDICATIONS: See Below ALLERGIES: See Below VITALS: See Below PHYSICAL EXAMINATION: GENERAL: Awake, alert, mildly uncomfortable. Very hard of hearing.-appearing, in no distress HENT: Normocephalic, atraumatic. Oropharynx unremarkable. EYES: Normal conjunctiva. Sclera non-icteric. NECK: Inspection normal. Non-tender. Supple. No nuchal rigidity. FROM. No masses. RESPIRATORY: Clear to auscultation. No wheezes. No rales. Normal respiratory effort. CARDIAC: Normal rate. Normal rhythm. No murmurs. No rubs. Extremities warm and well perfused. Pulses equal. No JVD. GI: Soft, non-distended. No tenderness to palpation. No rebound or guarding. No masses. MUSCULOSKELETAL: Atraumatic. Chest examination reveals no tenderness. The back is symmetrical on inspection without obvious abnormality. There is left CVA tenderness to palpation. Upper lumbar midline tenderness without step-off no joint edema. LOWER EXTREMITIES: Calves are equal size bilaterally and non-tender. 1-2+ edema. Large left diabetic heel ulceration. Mild surrounding erythema. Mild purulent discharge present. NEURO: Normal sensorium. No sensory or motor deficits noted. SKIN: No rash or jaundice noted. PROCEDURES: none CRITICAL CARE: none OBSERVATION NOTE: none Past Med/Surg History Problem List (Updated 05/12/24 @ 01:59 by Sarbjit Au MD) Leukocytosis (Acute) Closed T12 fracture (Acute) Acute UTI (urinary tract infection) (Acute) Diabetic ulcer of left heel (Acute) Hyperglycemia (Acute) Fall (Acute) Pressure ulcer of left leg, stage 3 (Acute) Venous ulcer of right leg (Acute) Diabetic ulcer of left heel (Acute) Malfunction of Hanna catheter (Acute) Hyperglycemia (Acute) Hyponatremia (Acute) PAD (peripheral artery disease) Charcot's joint of right foot (Acute) Otitis externa of left ear Cellulitis (Acute) Diabetic peripheral neuropathy Chronic indwelling Hanna catheter Open wound of both lower extremities Wound myiasis Bilateral lower leg cellulitis Otitis externa Ambulatory dysfunction Indwelling Hanna catheter present Severe aortic stenosis Chronic heart failure with preserved ejection fraction (HFpEF) Encounter for mastoidectomy cavity debridement Ear drum perforation Mixed hearing loss Hydronephrosis, bilateral Open wound of left heel Severe hearing loss Aortic stenosis Urinary retention Tick bite of neck Burn of ankle, right, second degree (Acute) Open wound of abdomen (Acute) Blister of finger (Acute) Open wounds of multiple fingers (Acute) Lymphedema (Chronic) Homeless (Acute) Traumatic open wound of right lower leg (Acute) BPH (benign prostatic hyperplasia) Edema of both legs Hypertension Paroxysmal atrial fibrillation Diabetes mellitus, type II (Chronic) DVT prophylaxis Hearing loss Dyslipidemia Cellulitis of right anterior lower leg (Acute) Hypophosphatemia Angioedema Medical History Maggot infestation Catheter-associated urinary tract infection Gram-negative bacteremia Acute electrocardiogram changes Elevated troponin CESAR (acute kidney injury) Metabolic encephalopathy High anion gap metabolic acidosis DKA (diabetic ketoacidosis) Admitted to intensive care unit Acute hypokalemia Acute hyperglycemia Puncture wound of foot, right Right foot infection Bacteremia D-dimer, elevated Heart failure with preserved ejection fraction Hypokalemia HTN (hypertension) Moderate aortic stenosis Premature atrial complexes Paroxysmal atrial fibrillation Abnormal urinalysis DVT prophylaxis Volume overload Cellulitis DM type 2 (diabetes mellitus, type 2) Leukocytosis Bilateral edema of lower extremity Elevated brain natriuretic peptide (BNP) level Atrial fibrillation with rapid ventricular response Dyspnea Surgical History History of ear surgery age 19, mastoid H/O shoulder surgery S/P foot surgery, left Family History Brother Diabetes Social History Smoking Status: Former smoker Tobacco Type: Cigarettes Second Hand Exposure: No; Do You Dip or Chew Tobacco: No; Hx Alcohol Use: Yes Alcohol type: beer Alcohol Intake Frequency: 2-3 x/Week Hx Substance Use: No Preferred Language: [place] Communication Ability: Impaired Communication Ability Comment: Deaf Visual Impairment: Limited Hearing Ability: Use of Hearing Aid Land Leases And Rentals Manager Required: No Beliefs That Will Affect Care: None marital status: Current Living Situation: Alone and Homeless Current Living Situation Comment: Living in his care per report current occupational status: retired How many Children do You have: 3 Feels Safe at Home: Yes during the past year weight has: remained stable Dental Care, Regularly: No Physical Activity Frequency: Does not Exercise Assistive Devices: Cane, Denture - Upper, Denture - Lower, Glasses and Walker Allergies Allergies Allergy/AdvReac Type Severity Reaction Status Date / Time lisinopril Allergy Severe Swelling Verified 05/03/24 13:13 of Face/Lips/Tongue Home Meds Home Medications Medication Instructions Recorded Confirmed insulin glargine 100 unit/mL (3 22 unit subcut HS 04/07/24 05/11/24 mL) subcutaneous pen (Lantus Solostar U-100 Insulin) Previous Rx's Medication Instructions Recorded apixaban 5 mg tablet (Eliquis) 5 mg PO BID #60 tabs 08/18/23 atorvastatin 40 mg tablet 40 mg PO QAM #30 tabs 08/18/23 finasteride 5 mg tablet 5 mg PO DAILY #30 tabs 08/18/23 insulin aspart U-100 100 unit/mL 5 unit (0.05 mL) subcut TIDM #15 mL 08/18/23 (3 mL) subcutaneous pen (Novolog FlexPen U-100 Insulin aspart) pantoprazole 40 mg tablet,delayed 40 mg PO DAILY #30 tabs 08/18/23 release tamsulosin 0.4 mg capsule 0.4 mg PO DAILY #30 caps 08/18/23 metoprolol tartrate 25 mg tablet 12.5 mg (1/2 x 25 mg) PO BID #60 04/11/24 tabs aspirin 81 mg tablet,delayed 81 mg PO QAM #30 tabs 04/22/24 release acetic acid 0.25 % irrigation 1 irrig irrigation DAILY 14 days 05/06/24 solution #1,000 mL gentamicin 0.1 % topical ointment 1 applic topical DAILY 14 days #30 05/06/24 grams Results & Data (ED) Vital Signs Vital Signs - 24 hr 05/11/24 21:28 05/11/24 22:32 05/12/24 01:36 Temperature 36.2 C L Temperature Source Temporal Artery Scan Pulse Rate 65 64 Pulse Rate [Apical] 63 Pulse Rhythm Respiratory Rate 18 16 Respiratory Effort / Characteristics Non-Labored Spontaneous Respiratory Depth Normal Blood Pressure 136/62 Blood Pressure [Right Arm] 180/102 H Blood Pressure Mean 86 Blood Pressure Mean [Right Arm] 128 Pulse Oximetry 95 98 Oxygen Delivery Method Room Air Sepsis Recent Fever Within 48 Hours No Sepsis New/Unexplained Change in Mental Status No Sepsis Action Taken by Nursing No Action Required 05/12/24 01:41 Temperature Temperature Source Pulse Rate 63 Pulse Rate [Apical] Pulse Rhythm Regular Respiratory Rate 18 Respiratory Effort / Characteristics Respiratory Depth Blood Pressure Blood Pressure [Right Arm] Blood Pressure Mean Blood Pressure Mean [Right Arm] Pulse Oximetry 97 Oxygen Delivery Method Room Air Sepsis Recent Fever Within 48 Hours Sepsis New/Unexplained Change in Mental Status Sepsis Action Taken by Nursing Laboratory Data 05/11/24 23:07 05/11/24 23:07 Lab Results 05/11/24 05/11/2405/12/24 Range/Units 23:07 Unknown 00:00 WBC 12.48 H (4.8-10.8) K/ul RBC 4.24 L (4.70-6.10) M/uL Hgb 12.1 L (14.0-18.0) g/dl Hct 37.0 L (42.0-52.0) % MCV 87.3 (80.0-100.0) fL MCH 28.5 (25.0-34.0) pg MCHC 32.7 (32.0-36.0) g/dL RDW Std Deviation 40.7 (36.4-46.3) fL RDW Coeff of Scott 13.0 (11.5-14.5) % Plt Count 282 (130-400) K/uL MPV 9.9 (9.4-12.4) fL Immature Gran % (Auto) 0.3 % Neut % (Auto) 69.0 % Lymph % (Auto) 21.2 % Saline % (Auto) 6.5 % Eos % (Auto) 2.5 % Baso % (Auto) 0.5 % Neut # (Auto) 8.62 H (1.40-6.50) K/uL Lymph # (Auto) 2.64 (1.20-3.40) K/uL Saline # (Auto) 0.81 H (0.11-0.59) K/uL Eos # (Auto) 0.31 (0.00-0.50) K/uL Baso # (Auto) 0.06 (0.00-0.20) K/uL Immature Gran # (Auto) 0.04 (0.01-0.20) K/uL ESR 59 H (0-20) mm/hr Sodium 133 L (136-145) mmol/L Potassium 4.4 (3.5-5.1) mmol/L Chloride 101 (98-107) mmol/L Carbon Dioxide 25 (21-32) mmol/L Anion Gap 7 (3-11) BUN 23 (6-23) mg/dl Creatinine 1.37 (0.6-1.4) mg/dl Est Cr Clr Drug Dosing Not Reportable Est GFR ( Amer) 56.9 ml/min Est GFR (Non-Af Amer) 49.1 ml/min BUN/Creatinine Ratio 16.8 (10-20) Glucose 311 H* (70-99(Fasting)) mg/dl Lactate (0.4-2.0) mmol/L Calcium 9.0 (8.6-10.3) mg/dl Total Bilirubin 0.6 (0.2-1.0) mg/dl AST 26 (13-39) U/L ALT 16 (7-52) U/L Alkaline Phosphatase 135 H (34-104) U/L C-Reactive Protein 1.55 H (0-0.5) mg/dl Total Protein 7.7 (6.0-8.3) gm/dl Albumin 3.5 (3.4-5.0) gm/dl Globulin 4.2 H (2.5-4.0) gm/dl Albumin/Globulin Ratio 0.8 L (0.9-2) Procalcitonin 0.32 (0-0.5) ng/ml Urine Color Yellow Urine Appearance Clear (Clear) Urine pH 6.5 (4.5-7.5) Ur Specific Ceres 1.021 (1.000-1.030) Urine Protein 1+ H (Negative) Urine Glucose (UA) 3+ H (Negative) Urine Ketones Negative (Negative) Urine Blood 2+ H (Negative) Urine Nitrite Negative (Negative) Urine Bilirubin Negative (Negative) Urine Urobilinogen Negative (Negative) Ur Leukocyte Esterase 2+ H (Negative) Urine WBC (Auto) >50 H (0-5) /hpf Urine RBC (Auto) >20 H (0-2) /hpf U Hyaline Cast (Auto) 6-10 H (0-2) /lpf U Epithel Cells (Auto) 0-2 (0-2) /hpf Urine Bacteria (Auto) None Seen (None Seen) Urine Yeast Present A (None Prsent) 05/12/24 Range/Units 01:07 WBC (4.8-10.8) K/ul RBC (4.70-6.10) M/uL Hgb (14.0-18.0) g/dl Hct (42.0-52.0) % MCV (80.0-100.0) fL MCH (25.0-34.0) pg MCHC (32.0-36.0) g/dL RDW Std Deviation (36.4-46.3) fL RDW Coeff of Scott (11.5-14.5) % Plt Count (130-400) K/uL MPV (9.4-12.4) fL Immature Gran % (Auto) % Neut % (Auto) % Lymph % (Auto) % Saline % (Auto) % Eos % (Auto) % Baso % (Auto) % Neut # (Auto) (1.40-6.50) K/uL Lymph # (Auto) (1.20-3.40) K/uL Saline # (Auto) (0.11-0.59) K/uL Eos # (Auto) (0.00-0.50) K/uL Baso # (Auto) (0.00-0.20) K/uL Immature Gran # (Auto) (0.01-0.20) K/uL ESR (0-20) mm/hr Sodium (136-145) mmol/L Potassium (3.5-5.1) mmol/L Chloride (98-107) mmol/L Carbon Dioxide (21-32) mmol/L Anion Gap (3-11) BUN (6-23) mg/dl Creatinine (0.6-1.4) mg/dl Est Cr Clr Drug Dosing Est GFR ( Amer) ml/min Est GFR (Non-Af Amer) ml/min BUN/Creatinine Ratio (10-20) Glucose (70-99(Fasting)) mg/dl Lactate 1.2 (0.4-2.0) mmol/L Calcium (8.6-10.3) mg/dl Total Bilirubin (0.2-1.0) mg/dl AST (13-39) U/L ALT (7-52) U/L Alkaline Phosphatase (34-104) U/L C-Reactive Protein (0-0.5) mg/dl Total Protein (6.0-8.3) gm/dl Albumin (3.4-5.0) gm/dl Globulin (2.5-4.0) gm/dl Albumin/Globulin Ratio (0.9-2) Procalcitonin (0-0.5) ng/ml Urine Color Urine Appearance (Clear) Urine pH (4.5-7.5) Ur Specific [place] (1.000-1.030) Urine Protein (Negative) Urine Glucose (UA) (Negative) Urine Ketones (Negative) Urine Blood (Negative) Urine Nitrite (Negative) Urine Bilirubin (Negative) Urine Urobilinogen (Negative) Ur Leukocyte Esterase (Negative) Urine WBC (Auto) (0-5) /hpf Urine RBC (Auto) (0-2) /hpf U Hyaline Cast (Auto) (0-2) /lpf U Epithel Cells (Auto) (0-2) /hpf Urine Bacteria (Auto) (None Seen) Urine Yeast (None Prsent) Administered Medications Discontinued Medications Acetaminophen (Ofirmev) 1,000 mg in 100 mls @ 400 mls/hr IV NOW STA Stop: 05/11/24 23:38 Last Infusion: 05/12/24 00:43 Dose: Infused Documented By: [facility] Admin: 05/11/24 23:56 Dose: 400 mls/hr Documented By: [facility] Imaging Data Radiologist's Impression: Chest CT 05/11/24 23:25 Exam(s): CT CHEST Without Contrast EXAM: CT Chest Without Intravenous Contrast CLINICAL HISTORY: Reason for exam: lower posterior rib pain, fall. TECHNIQUE: Axial computed tomography images of the chest without intravenous contrast. CTDI is 35 mGy and DLP is 1098 mGy-cm. Automated exposure control was utilized for the study. A dose lowering technique was utilized adhering to the principles of ALARA. COMPARISON: No relevant prior studies available. FINDINGS: Lungs: Unremarkable. No mass. No consolidation. Pleural space: Unremarkable. No pneumothorax. No significant effusion. Heart: Cardiomegaly. No significant pericardial effusion. No significant coronary artery calcifications. Mediastinum: Small hiatal hernia. Bones/joints: Acute fracture involving the inferior endplate of T12. Degenerative changes of the spine. No dislocation. Soft tissues: Unremarkable. Vasculature: Atherosclerotic changes of the aorta. No thoracic aortic aneurysm. Lymph nodes: Unremarkable. No enlarged lymph nodes. IMPRESSION: Acute fracture involving the inferior endplate of T12. Electronically signed by: Shawn Trotter MD 05/12/24 01:43 AM Abdomen/Pelvis CT 05/11/24 23:27 Exam(s): CT ABDOMEN + PELVIS Without Contrast EXAM: CT Abdomen and Pelvis Without Intravenous Contrast CLINICAL HISTORY: Reason for exam: Traum, fall. TECHNIQUE: Axial computed tomography images of the abdomen and pelvis without intravenous contrast. CTDI is 35 mGy and DLP is 1098 mGy-cm. Automated exposure control was utilized for the study. A dose lowering technique was utilized adhering to the principles of ALARA. COMPARISON: No relevant prior studies available. FINDINGS: Lung bases: Unremarkable. No mass. No consolidation. ABDOMEN: Liver: Unremarkable. Gallbladder and bile ducts: Unremarkable. No calcified stones. No ductal dilation. Pancreas: Unremarkable. No ductal dilation. Spleen: Unremarkable. No splenomegaly. Adrenals: Unremarkable. No mass. Kidneys and ureters: Unremarkable. No obstructing stones. No hydronephrosis. Stomach and bowel: Diverticulosis, without acute diverticulitis. No small bowel obstruction. No free intraperitoneal air. PELVIS: Appendix: No findings to suggest acute appendicitis. Bladder: Hanna catheter terminates in a decompressed urinary bladder which demonstrate mild wall thickening. Correlate for UTI. No stones. Reproductive: Unremarkable as visualized. ABDOMEN and PELVIS: Intraperitoneal space: Unremarkable. No free air. No significant fluid collection. Bones/joints: Nondisplaced fracture involving the infra and plate of T12. Degenerative changes of the spine. No dislocation. Soft tissues: Moderate fat-containing RIGHT inguinal hernia. Vasculature: Atherosclerotic changes of the aorta. No abdominal aortic aneurysm. Lymph nodes: Unremarkable. No enlarged lymph nodes. IMPRESSION: 1. Hanna catheter terminates in a decompressed urinary bladder which demonstrate mild wall thickening. Correlate for UTI. 2. Nondisplaced fracture involving the infra and plate of T12. 3. Diverticulosis, without acute diverticulitis. No small bowel obstruction. No free intraperitoneal air. Electronically signed by: Shawn Trotter MD 05/12/24 01:[address] 05/11/24 23:27 Exam(s): CT HEAD Without Contrast EXAM: CT Head Without Intravenous Contrast CLINICAL HISTORY: Reason for exam: Trauma. TECHNIQUE: Axial computed tomography images of the head/brain without intravenous contrast. CTDI is 35 mGy and DLP is 1098 mGy-cm. Automated exposure control was utilized for the study. A dose lowering technique was utilized adhering to the principles of ALARA. COMPARISON: No relevant prior studies available. FINDINGS: No acute intracranial hemorrhage. No midline shift or mass effect. The territorial franco-white matter differentiation is maintained throughout. Age-related cerebral volume loss. Periventricular and subcortical white matter hypoattenuation, consistent with chronic microangiopathy. The visualized orbits appear grossly unremarkable. The calvarium is intact. The visualized paranasal sinuses and mastoid air cells are grossly clear. IMPRESSION: No acute intracranial hemorrhage, midline shift, or mass effect. Electronically signed by: Shawn Trotter MD 05/12/24 01:[address] 05/11/24 23:27 Exam(s): CT L SPINE EXAM: CT Lumbar Spine Without Intravenous Contrast CLINICAL HISTORY: Reason for exam: Trauma. TECHNIQUE: Axial computed tomography images of the lumbar spine without intravenous contrast. CTDI is 35 mGy and DLP is 1098 mGy-cm. Automated exposure control was utilized for the study. A dose lowering technique was utilized adhering to the principles of ALARA. COMPARISON: No relevant prior studies available. FINDINGS: The vertebral body heights are maintained. The lumbar lordosis is preserved. There is no spondylolisthesis. The posterior elements are maintained, without evidence of acute fracture. The pedicles are intact. Multilevel lumbar spondylosis and degenerative disc disease. IMPRESSION: No acute fracture or subluxation of the lumbar spine. Note, there is a fracture involving the infra endplate of T12 on the concomitant CT abdomen pelvis. Electronically signed by: Shawn Trotter MD 05/12/24 01:39 AM Discharge Plan Visit Data Chief Complaint: Back Injury/Pain Stated Complaint: SPINE/BACK PAIN, FELL ED Provider: Sarbjit Au Discharge Problem: Fall, Hyperglycemia, Diabetic ulcer of left heel, Acute UTI (urinary tract infection), Closed T12 fracture, Leukocytosis Forms Stand Alone Forms: [facility] Prescriptions Prescriptions: No Action gentamicin 0.1 % ointment 1 applic topical DAILY 14 Days Qty: 30 0RF Rx Instructions: Apply to left heel daily with dressing changes. acetic acid 0.25 % solution 1 irrig irrigation DAILY 14 Days Qty: 1000 0RF Rx Instructions: Soak gauze with acetic acid and apply to wound of left heel daily for 15-20 minutes. pantoprazole 40 mg Tablet,Delayed Release (Dr/Ec) 40 mg PO DAILY Qty: 30 0RF atorvastatin 40 mg tablet 40 mg PO QAM Qty: 30 0RF tamsulosin 0.4 mg capsule 0.4 mg PO DAILY Qty: 30 11RF finasteride 5 mg tablet 5 mg PO DAILY Qty: 30 11RF Eliquis 5 mg tablet 5 mg PO BID Qty: 60 0RF insulin aspart U-100 [Novolog FlexPen U-100 Insulin] 100 unit/mL (3 mL) Insulin Pen 5 unit SUBCUT TIDM Qty: 15 0RF insulin glargine [Lantus Solostar U-100 Insulin] 100 unit/mL (3 mL) insulin pen 22 unit SUBCUT HS metoprolol tartrate 25 mg tablet 12.5 mg PO BID Qty: 60 0RF aspirin 81 mg Tablet,Delayed Release (Dr/Ec) 81 mg PO QAM Qty: 30 0RF Referrals Referrals: James Maria DO [Primary Care Provider] -
[2024-05-12] MEDS: MEROPENEM 500 MG in SYRINGE 0 ML IV STA (02:17)
[2024-05-12] MEDS: NovoLIN-R INSULIN PER UNIT CHARGE IV STA (02:17)
[2024-05-12] MEDS: SODIUM CHLORIDE 0.9% 1,000 ML IV SCH (02:17)
[2024-05-12] MEDS: SODIUM CHLORIDE 0.9% 500 ML IV ONE (02:17)
--- NOTE | 2024-05-12 02:56 | History & Physical Report ---
Date of Service May 12, 2024 Assessment & Plan (1) Asymptomatic hypertensive urgency: Plan: Secondary to thoracic spine fracture Complicated UTI secondary to obstructive uropathy, bladder outlet obstruction/history of BPH, indwelling Hanna catheter no sepsis for now Recurrent DM foot infection left, chronic left heel ulcer secondary to puncture injury, rule out abscess/osteomyelitis, no sepsis for now, underlying PAD hyperglycemia secondary to medication noncompliance, DM2 insulin requiring suboptimal control as of recent hemoglobin A1c of 14 last month chronic diastolic heart failure (EF 60-65%, TTE 2023), patient to the dry side A-fib on Eliquis severe hyperlipidemia, on statin Rx chronic anemia, hemoglobin at baseline severe hearing loss hoarding behavior as per records/hx of obsessional thoughts/acts as per records functional disability past tobacco abuse. Medical telemetry Analgesia, Lidoderm patch trial Home Lopressor 1 dose now Orthopedic spine consult Re: Thoracic spine fracture CS, Meropenem for complicated UTI given microbiologic history (Cefepime intermediate resistance organism organism), Doxycycline and Meropenem for diabetic foot infection CT left foot May need MRI to definitely rule out osteomyelitis if CT negative Hold Eliquis until patient seen by orthopedic spine and CT left foot results known Basal bolus insulin, ISS BG goal 1 10-1 40, carb count coverage PT OT eval DVT prophylaxis. TEDs for now while Eliquis on hold, SCDs contraindicated with history PAD DNR as per patient's prior wishes. Plan of care discussed with patient's former . Patient may need temporary placement given multiple comorbidities requiring chronic medical care/monitoring. Patient current homelessness detrimental to patient's health. Patient requesting updates providers. Farhana Merrittsafia, contact #[phone]. Text document was generated using [employer] voice recognition software. It may contain grammatical or spelling errors. Kindly contact undersigned for clarification of any documentation item in Normal. History obtained from patient, family, and records. History from patient secondary to severe hearing impairment. Medical history significant for chronic diastolic heart failure (EF 60%, TTE 2022), A-fib on Eliquis, moderate , hypertension, hyperlipidemia, BPH, chronic anemia (baseline hemoglobin of 11), severe hearing loss, history chronic LE venous ulcers, hoarding behavior as per records/hx of obsessional thoughts/acts as per records, past tobacco abuse Medical History as above Surgical History : Mastoidectomy, shoulder surgery, foot surgery Family History : DM, lung cancer Personal/Social history : Past tobacco abuse, occasional EtOH intake, retired from [employer] employment History of Present Illness Chief Complaint: Back pain Primary Care Provider: James Maria DO History obtained from patient, family, and records. History from patient secondary to severe hearing impairment. Medical history significant for chronic diastolic heart failure (EF 60-65%, TTE 2023), A-fib on Eliquis, severe , PAD, hypertension, hyperlipidemia, recurrent UTIs secondary to chronic indwelling Hanna catheter, BPH, DM2 insulin requiring, chronic anemia (baseline hemoglobin of 11-12), severe hearing loss, history chronic LE venous ulcers, chronic right heel wound secondary to puncture injury, hoarding behavior as per records/hx of obsessional thoughts/acts as per records, past tobacco abuse. Recent confinement last month Hanna catheter malfunction and MSSA left foot ulcer status post debridement/antibiotic Rx. Patient discharged from hospital. Has been homeless for some time now. Former and daughter unable to accommodate patient at apartment which only allows for 2 people. Patient resides in a van/storage shed and has limited access to [employer] r/food/medication. PCP had serious concerns about patient's living situation on follow-up visit 2 days ago. Patient noted mid back pain after falling and losing balance last week. No head trauma, no chest pain, no SOB, no LOC. Patient with chills. Leg and foot wounds okay as per patient. Patient consulted ER for evaluation. Purulent urine in Hanna catheter. Purulent drainage from chronic left heel wound. Highest SBP of 180s documented at the ER. Meropenem administered at the ER. Medical History as above Surgical History : Mastoidectomy, shoulder surgery, foot surgery Family History : DM, lung cancer Personal/Social history : Past tobacco abuse, occasional EtOH intake, retired from [employer] employment Allergies Allergy/AdvReac Type Severity Reaction Status Date / Time lisinopril Allergy Severe Swelling Verified 05/03/24 13:13 of Face/Lips/Tongue Home Medications Medication Instructions Recorded Confirmed Type apixaban 5 mg tablet (Eliquis) 5 mg PO BID #60 tabs 08/18/23 05/11/24 Rx atorvastatin 40 mg tablet 40 mg PO QAM #30 tabs 08/18/23 05/11/24 Rx finasteride 5 mg tablet 5 mg PO DAILY #30 tabs 08/18/23 05/11/24 Rx insulin aspart U-100 100 unit/mL 5 unit (0.05 mL) subcut TIDM #15 mL 08/18/23 05/11/24 Rx (3 mL) subcutaneous pen (Novolog FlexPen U-100 Insulin aspart) pantoprazole 40 mg tablet,delayed 40 mg PO DAILY #30 tabs 08/18/23 05/11/24 Rx release tamsulosin 0.4 mg capsule 0.4 mg PO DAILY #30 caps 08/18/23 05/11/24 Rx insulin glargine 100 unit/mL (3 22 unit subcut HS 04/07/24 05/11/24 History mL) subcutaneous pen (Lantus Solostar U-100 Insulin) metoprolol tartrate 25 mg tablet 12.5 mg (1/2 x 25 mg) PO BID #60 04/11/24 05/11/24 Rx tabs aspirin 81 mg tablet,delayed 81 mg PO QAM #30 tabs 04/22/24 05/11/24 Rx release acetic acid 0.25 % irrigation 1 irrig irrigation DAILY 14 days 05/06/24 05/11/24 Rx solution #1,000 mL gentamicin 0.1 % topical ointment 1 applic topical DAILY 14 days #30 05/06/24 05/11/24 Rx grams Past Med/Surg History Problem List (Updated 05/12/24 @ 10:03 by Gerald Hagan MD) Asymptomatic hypertensive urgency Leukocytosis (Acute) Closed T12 fracture (Acute) Acute UTI (urinary tract infection) (Acute) Diabetic ulcer of left heel (Acute) Hyperglycemia (Acute) Fall (Acute) Pressure ulcer of left leg, stage 3 (Acute) Venous ulcer of right leg (Acute) Diabetic ulcer of left heel (Acute) Malfunction of Hanna catheter (Acute) Hyperglycemia (Acute) Hyponatremia (Acute) PAD (peripheral artery disease) Charcot's joint of right foot (Acute) Otitis externa of left ear Cellulitis (Acute) Diabetic peripheral neuropathy Chronic indwelling Hanna catheter Open wound of both lower extremities Wound myiasis Bilateral lower leg cellulitis Otitis externa Ambulatory dysfunction Indwelling Hanna catheter present Severe aortic stenosis Chronic heart failure with preserved ejection fraction (HFpEF) Encounter for mastoidectomy cavity debridement Ear drum perforation Mixed hearing loss Hydronephrosis, bilateral Open wound of left heel Severe hearing loss Aortic stenosis Urinary retention Tick bite of neck Burn of ankle, right, second degree (Acute) Open wound of abdomen (Acute) Blister of finger (Acute) Open wounds of multiple fingers (Acute) Lymphedema (Chronic) Homeless (Acute) Traumatic open wound of right lower leg (Acute) BPH (benign prostatic hyperplasia) Edema of both legs Hypertension Paroxysmal atrial fibrillation Diabetes mellitus, type II (Chronic) DVT prophylaxis Hearing loss Dyslipidemia Cellulitis of right anterior lower leg (Acute) Hypophosphatemia Angioedema Medical History Maggot infestation Catheter-associated urinary tract infection Gram-negative bacteremia Acute electrocardiogram changes Elevated troponin CESAR (acute kidney injury) Metabolic encephalopathy High anion gap metabolic acidosis DKA (diabetic ketoacidosis) Admitted to intensive care unit Acute hypokalemia Acute hyperglycemia Puncture wound of foot, right Right foot infection Bacteremia D-dimer, elevated Heart failure with preserved ejection fraction Hypokalemia HTN (hypertension) Moderate aortic stenosis Premature atrial complexes Paroxysmal atrial fibrillation Abnormal urinalysis DVT prophylaxis Volume overload Cellulitis DM type 2 (diabetes mellitus, type 2) Leukocytosis Bilateral edema of lower extremity Elevated brain natriuretic peptide (BNP) level Atrial fibrillation with rapid ventricular response Dyspnea Surgical History History of ear surgery age 19, mastoid H/O shoulder surgery S/P foot surgery, left Family History Brother Diabetes Social History Smoking Status: Former smoker Tobacco Type: Cigarettes Second Hand Exposure: No; Do You Dip or Chew Tobacco: No; Hx Alcohol Use: Yes Alcohol type: beer Alcohol Intake Frequency: 2-3 x/Week Hx Substance Use: No Preferred Language: Yoruba Communication Ability: Impaired Communication Ability Comment: Deaf Visual Impairment: Limited Hearing Ability: Use of Hearing Aid Moto Mix Operator Required: No Beliefs That Will Affect Care: None marital status: Current Living Situation: Alone and Homeless Current Living Situation Comment: Living in his car current occupational status: retired How many Children do You have: 3 Feels Safe at Home: Yes Safety Concerns: Feels Safe At This Time during the past year weight has: remained stable Dental Care, Regularly: No Physical Activity Frequency: Does not Exercise Assistive Devices: Cane, Denture - Upper, Denture - Lower and Glasses Review of Systems Review of Systems: Could not be reliably obtained secondary to marked hearing impairment Physical Exam Physical Exam: GENERAL: comfortable, hard of hearing, no respiratory distress SKIN: Pallor, warm HEENT: pale palpebral conjunctivae, no ptosis, dry buccal mucosa NECK : Supple, no tenderness CHEST : CTA, no tenderness HEART : RRR, systolic murmur BACK : Mid back tenderness ABDOMEN: Some distention, minimal hypogastric tenderness EXTREMITIES : Dressing over left heel wound, no LE tenderness, no other conspicuous deformities noted NEUROLOGIC : Coherent, no facial asymmetry, marked hearing impairment, gait and stance not assessed Results & Data Results & Data Vital Signs (Past 12 Hours) Vital Signs Temp Pulse Pulse Resp BP BP Pulse Ox 05/12/24 02:29 62 05/12/24 01:41 63 18 97 05/12/24 01:36 63 16 180/102 H 98 05/11/24 22:32 64 05/11/24 21:28 36.2 C L 65 18 136/62 95 O2 Del Method 05/12/24 02:29 05/12/24 01:41 Room Air 05/12/24 01:36 05/11/24 22:32 05/11/24 21:28 Room Air Laboratory Results Laboratory Results WBC 12.48 K/ul (4.8-10.8) H 05/11/24 23:07 RBC 4.24 M/uL (4.70-6.10) L 05/11/24 23:07 Hgb 12.1 g/dl (14.0-18.0) L 05/11/24 23:07 Hct 37.0 % (42.0-52.0) L 05/11/24 23:07 MCV 87.3 fL (80.0-100.0) 05/11/24 23:07 MCH 28.5 pg (25.0-34.0) 05/11/24 23:07 MCHC 32.7 g/dL (32.0-36.0) 05/11/24 23:07 RDW Std Deviation 40.7 fL (36.4-46.3) 05/11/24 23:07 RDW Coeff of Scott 13.0 % (11.5-14.5) 05/11/24 23:07 Plt Count 282 K/uL (130-400) 05/11/24 23:07 MPV 9.9 fL (9.4-12.4) 05/11/24 23:07 Immature Gran % (Auto) 0.3 % 05/11/24 23:07 Neut % (Auto) 69.0 % 05/11/24 23:07 Lymph % (Auto) 21.2 % 05/11/24 23:07 [place] % (Auto) 6.5 % 05/11/24 23:07 Eos % (Auto) 2.5 % 05/11/24 23:07 Baso % (Auto) 0.5 % 05/11/24 23:07 Neut # (Auto) 8.62 K/uL (1.40-6.50) H 05/11/24 23:07 Lymph # (Auto) 2.64 K/uL (1.20-3.40) 05/11/24 23:07 [place] # (Auto) 0.81 K/uL (0.11-0.59) H 05/11/24 23:07 Eos # (Auto) 0.31 K/uL (0.00-0.50) 05/11/24 23:07 Baso # (Auto) 0.06 K/uL (0.00-0.20) 05/11/24 23:07 Immature Gran # (Auto) 0.04 K/uL (0.01-0.20) 05/11/24 23:07 ESR 59 mm/hr (0-20) H 05/11/24 Unknown Sodium 133 mmol/L (136-145) L 05/11/24 23:07 Potassium 4.4 mmol/L (3.5-5.1) 05/11/24 23:07 Chloride 101 mmol/L (98-107) 05/11/24 23:07 Carbon Dioxide 25 mmol/L (21-32) 05/11/24 23:07 Anion Gap 7 (3-11) 05/11/24 23:07 BUN 23 mg/dl (6-23) 05/11/24 23:07 Creatinine 1.37 mg/dl (0.6-1.4) 05/11/24 23:07 Est Cr Clr Drug Dosing Not Reportable 05/11/24 23:07 Est GFR ( Amer) 56.9 ml/min 05/11/24 23:07 Est GFR (Non-Af Amer) 49.1 ml/min 05/11/24 23:07 BUN/Creatinine Ratio 16.8 (10-20) 05/11/24 23:07 Glucose 311 mg/dl (70-99(Fasting)) H* 05/11/24 23:07 Lactate 1.2 mmol/L (0.4-2.0) 05/12/24 01:07 Calcium 9.0 mg/dl (8.6-10.3) 05/11/24 23:07 Total Bilirubin 0.6 mg/dl (0.2-1.0) 05/11/24 23:07 AST 26 U/L (13-39) 05/11/24 23:07 ALT 16 U/L (7-52) 05/11/24 23:07 Alkaline Phosphatase 135 U/L (34-104) H 05/11/24 23:07 C-Reactive Protein 1.55 mg/dl (0-0.5) H 05/11/24 23:07 Total Protein 7.7 gm/dl (6.0-8.3) 05/11/24 23:07 Albumin 3.5 gm/dl (3.4-5.0) 05/11/24 23:07 Globulin 4.2 gm/dl (2.5-4.0) H 05/11/24 23:07 Albumin/Globulin Ratio 0.8 (0.9-2) L 05/11/24 23:07 Procalcitonin 0.32 ng/ml (0-0.5) 05/11/24 Unknown Urine Color Yellow 05/12/24 00:00 Urine Appearance Clear (Clear) 05/12/24 00:00 Urine pH 6.5 (4.5-7.5) 05/12/24 00:00 Ur Specific [place] 1.021 (1.000-1.030) 05/12/24 00:00 Urine Protein 1+ (Negative) H 05/12/24 00:00 Urine Glucose (UA) 3+ (Negative) H 05/12/24 00:00 Urine Ketones Negative (Negative) 05/12/24 00:00 Urine Blood 2+ (Negative) H 05/12/24 00:00 Urine Nitrite Negative (Negative) 05/12/24 00:00 Urine Bilirubin Negative (Negative) 05/12/24 00:00 Urine Urobilinogen Negative (Negative) 05/12/24 00:00 Ur Leukocyte Esterase 2+ (Negative) H 05/12/24 00:00 Urine WBC (Auto) >50 /hpf (0-5) H 05/12/24 00:00 Urine RBC (Auto) >20 /hpf (0-2) H 05/12/24 00:00 U Hyaline Cast (Auto) 6-10 /lpf (0-2) H 05/12/24 00:00 U Epithel Cells (Auto) 0-2 /hpf (0-2) 05/12/24 00:00 Urine Bacteria (Auto) None Seen (None Seen) 05/12/24 00:00 Urine Yeast Present (None Prsent) A 05/12/24 00:[address] 05/11/24 23:25 Exam(s): CT CHEST Without Contrast EXAM: CT Chest Without Intravenous Contrast CLINICAL HISTORY: Reason for exam: lower posterior rib pain, fall. TECHNIQUE: Axial computed tomography images of the chest without intravenous contrast. CTDI is 35 mGy and DLP is 1098 mGy-cm. Automated exposure control was utilized for the study. A dose lowering technique was utilized adhering to the principles of ALARA. COMPARISON: No relevant prior studies available. FINDINGS: Lungs: Unremarkable. No mass. No consolidation. Pleural space: Unremarkable. No pneumothorax. No significant effusion. Heart: Cardiomegaly. No significant pericardial effusion. No significant coronary artery calcifications. Mediastinum: Small hiatal hernia. Bones/joints: Acute fracture involving the inferior endplate of T12. Degenerative changes of the spine. No dislocation. Soft tissues: Unremarkable. Vasculature: Atherosclerotic changes of the aorta. No thoracic aortic aneurysm. Lymph nodes: Unremarkable. No enlarged lymph nodes. IMPRESSION: Acute fracture involving the inferior endplate of T12. Electronically signed by: Shawn Trotter MD 05/12/24 01:43 AM Abdomen/Pelvis CT 05/11/24 23:27 Exam(s): CT ABDOMEN + PELVIS Without Contrast EXAM: CT Abdomen and Pelvis Without Intravenous Contrast CLINICAL HISTORY: Reason for exam: Traum, fall. TECHNIQUE: Axial computed tomography images of the abdomen and pelvis without intravenous contrast. CTDI is 35 mGy and DLP is 1098 mGy-cm. Automated exposure control was utilized for the study. A dose lowering technique was utilized adhering to the principles of ALARA. COMPARISON: No relevant prior studies available. FINDINGS: Lung bases: Unremarkable. No mass. No consolidation. ABDOMEN: Liver: Unremarkable. Gallbladder and bile ducts: Unremarkable. No calcified stones. No ductal dilation. Pancreas: Unremarkable. No ductal dilation. Spleen: Unremarkable. No splenomegaly. Adrenals: Unremarkable. No mass. Kidneys and ureters: Unremarkable. No obstructing stones. No hydronephrosis. Stomach and bowel: Diverticulosis, without acute diverticulitis. No small bowel obstruction. No free intraperitoneal air. PELVIS: Appendix: No findings to suggest acute appendicitis. Bladder: Hanna catheter terminates in a decompressed urinary bladder which demonstrate mild wall thickening. Correlate for UTI. No stones. Reproductive: Unremarkable as visualized. ABDOMEN and PELVIS: Intraperitoneal space: Unremarkable. No free air. No significant fluid collection. Bones/joints: Nondisplaced fracture involving the infra and plate of T12. Degenerative changes of the spine. No dislocation. Soft tissues: Moderate fat-containing RIGHT inguinal hernia. Vasculature: Atherosclerotic changes of the aorta. No abdominal aortic aneurysm. Lymph nodes: Unremarkable. No enlarged lymph nodes. IMPRESSION: 1. Hanna catheter terminates in a decompressed urinary bladder which demonstrate mild wall thickening. Correlate for UTI. 2. Nondisplaced fracture involving the infra and plate of T12. 3. Diverticulosis, without acute diverticulitis. No small bowel obstruction. No free intraperitoneal air. Electronically signed by: Shawn Trotter MD 05/12/24 01:[address] 05/11/24 23:27 Exam(s): CT HEAD Without Contrast EXAM: CT Head Without Intravenous Contrast CLINICAL HISTORY: Reason for exam: Trauma. TECHNIQUE: Axial computed tomography images of the head/brain without intravenous contrast. CTDI is 35 mGy and DLP is 1098 mGy-cm. Automated exposure control was utilized for the study. A dose lowering technique was utilized adhering to the principles of ALARA. COMPARISON: No relevant prior studies available. FINDINGS: No acute intracranial hemorrhage. No midline shift or mass effect. The territorial franco-white matter differentiation is maintained throughout. Age-related cerebral volume loss. Periventricular and subcortical white matter hypoattenuation, consistent with chronic microangiopathy. The visualized orbits appear grossly unremarkable. The calvarium is intact. The visualized paranasal sinuses and mastoid air cells are grossly clear. IMPRESSION: No acute intracranial hemorrhage, midline shift, or mass effect. Electronically signed by: Shawn Trotter MD 05/12/24 01:[address] 05/11/24 23:27 Exam(s): CT L SPINE EXAM: CT Lumbar Spine Without Intravenous Contrast CLINICAL HISTORY: Reason for exam: Trauma. TECHNIQUE: Axial computed tomography images of the lumbar spine without intravenous contrast. CTDI is 35 mGy and DLP is 1098 mGy-cm. Automated exposure control was utilized for the study. A dose lowering technique was utilized adhering to the principles of ALARA. COMPARISON: No relevant prior studies available. FINDINGS: The vertebral body heights are maintained. The lumbar lordosis is preserved. There is no spondylolisthesis. The posterior elements are maintained, without evidence of acute fracture. The pedicles are intact. Multilevel lumbar spondylosis and degenerative disc disease. IMPRESSION: No acute fracture or subluxation of the lumbar spine. Note, there is a fracture involving the infra endplate of T12 on the concomitant CT abdomen pelvis. Electronically signed by: Shawn Trotter MD 05/12/24 01:39 AM Diagnostic Findings EKG as per my interpretation : Rate 65, NSR, LAD, LAFB, RBBB, LVH, septal infarct, T wave flattening inferior leads
[2024-05-12] MEDS ORDERED: GLUCAGON FOR INJ 1 MG VIAL SQ PRN (03:00)
[2024-05-12] MEDS ORDERED: CARBOHYDRATES FOR HYPOGLYCEMIA PO PRN (03:00)
[2024-05-12] MEDS ORDERED: DEXTROSE 50% 50 ML SYRINGE IV PRN (03:00)
[2024-05-12] MEDS ORDERED: GLUCOSE 10 TAB/TUBE PO PRN (03:00)
[2024-05-12] MEDS ORDERED: GLUCOSE 40% GEL 15 GM TUBE PO PRN (03:00)
[2024-05-12] MEDS ORDERED: ACETAMINOPHEN 325 MG TAB PO PRN (03:06)
[2024-05-12] MEDS ORDERED: PROMETHAZINE HCL 6.25 MG in SODIUM CHLORIDE 0.9% 50 ML IV PRN (03:06)
[2024-05-12] MEDS: METOPROLOL TARTRATE 25 MG TAB PO STA (03:16)
[2024-05-12] MEDS: LIDOCAINE 5% 1 PATCH TD STA (03:17)
[2024-05-12] MEDS: DOXYCYCLINE HYCLATE 100 MG in DEXTROSE 5% MINI-B 100 ML IV STA (03:18)
[2024-05-12] MEDS: INSULIN ASPART PER UNIT CHARGE SC SCH ×2 (03:28→14:03)
[2024-05-12] MEDS: LANTUS PER UNIT CHARGE SQ SCH ×2 (03:28→21:37)
[2024-05-12] MEDS: oxyCODONE HCL IR 5 MG TAB (IMMEDIATE RELEASE) PO PRN (04:18)
[2024-05-12] MEDS: Patient's HEIGHT &/or WEIGHT Needed STA (05:05)
--- NOTE | 2024-05-12 05:21 | CT Scan Report ---
Exam(s): CT LEFT FOOT Without Contrast EXAM: CT Left Lower Extremity Without Intravenous Contrast, Foot CLINICAL HISTORY: Reason for exam: worsening L heel wound drainage. TECHNIQUE: Axial computed tomography images of the left foot without intravenous contrast. CTDI is 24.91 mGy and DLP is 465.61 mGy-cm. Automated exposure control was utilized for the study. A dose lowering technique was utilized adhering to the principles of ALARA. COMPARISON: No relevant prior studies available. FINDINGS: Bones/joints: 2 screws in the first metatarsal head, presumably from hallux valgus correction. Orthopedic screws in the second through fourth proximal phalanges, presumably hammertoe correction surgery. No fracture or dislocation. No osseous erosive abnormality to suggest osteomyelitis. Soft tissues: Induration of the fat planes demonstrated which may represent cellulitis or chronic venous stasis. Small left heel ulceration with skin thickening present. No soft tissue abscess. IMPRESSION: 1. Small left heel ulceration with skin thickening present. No soft tissue abscess. 2. No osseous erosive abnormality to suggest osteomyelitis. 3. Induration of the fat planes demonstrated which may represent cellulitis or chronic venous stasis. Electronically signed by: Lui Johnson MD 05/12/24 05:20 AM
[2024-05-12 07:06] LABS: Basophils # (auto) 0.05 K/uL (0.00-0.20); Basophils % (auto) 0.5 %; Eosinophils # (auto) 0.34 K/uL (0.00-0.50); Eosinophils % (auto) 3.4 %; Hematocrit (blood only) 33.4 % (42.0-52.0); Hemoglobin 10.9 g/dl (14.0-18.0); Immature Granulocytes # (auto) 0.04 K/uL (0.01-0.20); Immature Granulocytes % (auto) 0.4 %; Lymphocytes # (auto) 2.57 K/uL (1.20-3.40); Lymphocytes % (auto) 25.4 %; Mean Corpuscular Hemoglobin 28.5 pg (25.0-34.0); Mean Corpuscular Hgb Conc 32.6 g/dL (32.0-36.0); Mean Corpuscular Volume 87.2 fL (80.0-100.0); Mean Platelet Volume 10.1 fL (9.4-12.4); Monocytes % (auto) 7.9 %; Neutrophils # (auto) 6.32 K/uL (1.40-6.50); Neutrophils % (auto) 62.4 %; Platelet Count 278 K/uL (130-400); RDW Coefficient of Variation 12.8 % (11.5-14.5); RDW Standard Deviation 40.2 fL (36.4-46.3); Red Blood Count 3.83 M/uL (4.70-6.10); White Blood Count 10.12 K/ul (4.8-10.8)
--- NOTE | 2024-05-12 07:23 | XRay Report ---
XR chest 1V portable HISTORY: 78 years-old Male fall acute chest trauma status post fall COMPARISON: 07/31/2023 TECHNIQUE: AP view of the chest FINDINGS: Cardiac silhouette is enlarged. Mild upper thoracic levoscoliosis. No pneumothorax, pleural effusion or pulmonary edema. No airspace consolidation typical for pneumonia. IMPRESSION: Cardiomegaly without acute process. ACT 112: Negative or not required by law. The above report was generated using voice recognition software. It may contain grammatical, syntax o r spelling errors. Electronically signed by: Fabio Simmons M.D. 05/12/2024 7:22 AM
--- NOTE | 2024-05-12 07:24 | XRay Report ---
LEFT CALCANEUS 2 VIEWS CLINICAL HISTORY: Diabetic heel ulcer. FINDINGS: AP and lateral views of the left calcaneus are correlated with radiograph of left foot date d 06/05/2022. The skeletal structures are osteopenic. There is no radiographic evidence of calcaneal fr acture. No bony erosion or periostitis is seen. There are large dorsal and plantar heel spurs. An os trigonum is incidentally noted. There is degenerative spurring along the dorsal aspect of the talus. Pes planus is observed. Soft tissue edema is noted in the heel. No soft tissue gas or radiodense fore ign body is identified. IMPRESSION: 1. Soft tissue edema with no acute bony abnormality identified. 2. Large heel spurs. Electronically signed by: Chris Earl M.D. 05/12/2024 7:22 AM
[2024-05-12 07:36] LABS: BUN Creatinine Ratio 17.7 (10-20); Calcium 8.2 mg/dl (8.6-10.3); Creatinine Clr Calc Pharmacy 47.5 ml/min; Est GFR (African American) 64.1 ml/min; Est GFR (Non-African American) 55.3 ml/min; Potassium 3.8 mmol/L (3.5-5.1)
[2024-05-12] MEDS: ATORVASTATIN 40 MG TAB PO SCH (08:05)
[2024-05-12] MEDS: FINASTERIDE 5 MG TAB PO SCH (08:05)
[2024-05-12] MEDS: ASPIRIN 81 MG ECTAB PO SCH (08:05)
[2024-05-12] MEDS: METOPROLOL TARTRATE 25 MG TAB PO SCH (08:06)
[2024-05-12] MEDS: PANTOprazole 40 MG TAB PO SCH (08:06)
[2024-05-12] MEDS: TAMSULOSIN HCL 0.4 MG CAP PO SCH (08:06)
[2024-05-12] MEDS: ADVANCED PROBIOTIC 625 MG CAPSULE PO SCH (10:45)
[2024-05-12] MEDS: MEROPENEM 500 MG in SYRINGE 0 ML IV SCH (11:17)
--- NOTE | 2024-05-12 13:47 | Electrocardiogram Report ---
Test Reason : Blood Pressure : / mmHG Vent. Rate : 066 BPM Atrial Rate : 066 BPM P-R Int : 166 ms QRS Dur : 118 ms QT Int : 440 ms P-R-T Axes : 057 -55 074 degrees QTc Int : 461 ms Normal sinus rhythm Right bundle branch block Left anterior fascicular block Bifascicular block Minimal voltage criteria for LVH, may be normal variant Abnormal ECG When compared with ECG of 28-JUL-2023 12:45, T wave inversion no longer evident in Inferior leads T wave inversion no longer evident in Anterolateral leads Confirmed by Arron Jennings ([id number]) on 05/12/2024 1:46:53 PM Referred By: REFERRED SELF Confirmed By:Tito Jennings
--- NOTE | 2024-05-12 16:09 | CT Scan Report ---
CT thoracic spine wo con HISTORY: 78 years-old Male assess T12 fracture acute midback pain status post trauma COMPARISON: CT lumbar spine of same day, CT abdomen and pelvis 07/24/2023 TECHNIQUE: Multiple axial CT images of the thoracic spine were obtained without the use of IV contras t. A dose lowering technique was used consistent with the principals of RUSTAM. FINDINGS: There is an acute T12 compression deformity with approximately 50% vertebral body height loss. No sig nificant retropulsion. Additionally, there is an acute fracture involving the anterior and superior e ndplates of L1 demonstrating approximately 30% vertebral body height loss without retropulsion. Mild upper thoracic levoscoliosis. Mild superior endplate compression at T3 without retropulsion is likely chronic. No additional acute fracture or subluxation. Mild cortical buckling of the medial right 12t h rib. No acute displaced rib fractures identified. Trace pleural effusions. Cardiomegaly. Bilateral perinephric stranding. No pneumothorax. IMPRESSION: 1. Acute T12 and L1 compression deformities without significant retropulsion or central canal stenosi s. 2. Trace pleural effusions. ACT 112: Negative or not required by law. The above report was generated using voice recognition software. It may contain grammatical, syntax o r spelling errors. Electronically signed by: Fabio Simmons M.D. 05/12/2024 4:07 PM
--- NOTE | 2024-05-12 16:13 | Hospitalist Progress Note ---
Date of Service May 12, 2024 Assessment & Plan (1) Asymptomatic hypertensive urgency: Plan: Hypertensive urgency Likely situational secondary to pain Continue metoprolol Not on Lantus Blood pressure better today Monitor BP Thoracic spine fracture --Thoracic Spine CT: Acute T12 and L1 compression deformities without significant retropulsion or central canal stenosis. Pain control Fall precautions Orthopedics consulted PT OT as able Complicated UTI/CAUTI--POA Secondary to Chronic bladder outlet obstruction/BPH Indwelling Hanna catheter Blood culture pending Urine culture pending Continue IV meropenem Recurrent DM foot infection left Left lower extremity stage III pressure ulcer--POA Underlying PAD --Foot CT:Small left heel ulceration with skin thickening present. No soft tissue abscess. No osseous erosive abnormality to suggest osteomyelitis. Induration of the fat planes demonstrated which may represent cellulitis or chronic venous stasis. Wound culture, blood cultures pending Continue meropenem, doxycycline for now Wound care consulted Will obtain MRI to rule out osteomyelitis Hyperglycemia Uncontrolled DM II Last HbA1c 14 Medication noncompliance Continue insulin while hospitalized Monitor BGs Chronic diastolic heart failure Last EF 60-65%, TTE 2023 A-fib severe Continue home medications Monitor volume status Eliquis on hold pending Ortho eval PAD Hyperlipidemia Continue Aspirin, statin CKD III Baseline creatinine ~ 1.7 Monitor renal function Severe hearing loss hoarding behavior as per records/hx of obsessional thoughts/acts as per records Functional disability Past tobacco abuse. DVT Px: TEDs for now Resume Eliquis as able CODE STATUS DNR/DNI Admission and Anticipated Discharge Date Admission Date: May 12, 2024 Subjective Patient is seen and examined at bedside Poor historian secondary to significant hearing impairment Admits to have back pain especially with movement Denies any dysuria, hematuria, chest pain, dyspnea Also states having foot pain intermittently No other complaints Review of Systems Review of Systems: All systems reviewed & are unremarkable except as noted in Subjective Physical Exam Physical Exam: Physical Exam: Vitals signs as noted above General Appearance:Moderately built and nourished, no apparent distress, chronic ill appearing Head: normocephalic, Atraumatic Eyes: normal inspection, EOMI Neck: supple, Trachea midline Respiratory/Chest: Normal breath sounds, CTA, No accessory muscle use Cardiovascular: S1, S2, + murmur Abdomen/GI:Soft, Non tender, Bowel sounds present Extremities/Musculoskeletal:normal inspection, B/L LE edema, +Mild erythema, Left Heel wound Neurologic/Psych:AAOX3, grossly no focal neurological deficits, +hearing impairment Skin: normal color, warm Results & Data Results & Data Vital Signs (Past 12 Hours) Vital Signs Temp Pulse Pulse Pulse Resp BP Pulse Ox 05/12/24 15:01 66 05/12/24 14:33 37.0 C 62 18 126/61 94 05/12/24 11:20 65 16 129/69 95 05/12/24 08:00 52 L 17 135/73 95 05/12/24 07:10 52 L 05/12/24 06:16 56 L 16 149/73 H 98 05/12/24 04:40 56 L 18 160/75 H 97 O2 Del Method 05/12/24 15:01 05/12/24 14:33 Room Air 05/12/24 11:20 Room Air 05/12/24 08:00 Room Air 05/12/24 07:10 05/12/24 06:16 Room Air 05/12/24 04:40 Room Air Laboratory Results Short CBC 05/11/24 05/12/24 Range/Units 23:07 06:33 WBC 12.48 H 10.12 (4.8-10.8) K/ul Hgb 12.1 L 10.9 L (14.0-18.0) g/dl Hct 37.0 L 33.4 L (42.0-52.0) % Plt Count 282 278 (130-400) K/uL BMP 05/11/24 05/12/24 23:07 06:33 Sodium 133 L 136 Potassium 4.4 3.8 Chloride 101 104 Carbon Dioxide 25 27 BUN 23 22 Creatinine 1.37 1.24 Glucose 311 H* 144 H Calcium 9.0 8.2 L Liver Function 05/11/24 Range/Units 23:07 Total Bilirubin 0.6 (0.2-1.0) mg/dl AST 26 (13-39) U/L ALT 16 (7-52) U/L Alkaline Phosphatase 135 H (34-104) U/L Albumin 3.5 (3.4-5.0) gm/dl Urine 05/12/24 Range/Units 00:00 Urine Color Yellow Urine Appearance Clear (Clear) Urine pH 6.5 (4.5-7.5) Ur Specific Ledbetter 1.021 (1.000-1.030) Urine Protein 1+ H (Negative) Urine Glucose (UA) 3+ H (Negative)
--- OUTSIDE RECORDS SUMMARY | 2024-05-12 19:07 | External Medical Summary | Summary of Care ---
Author Name Unknown Organization [facility] Address [address] [place] [place] [address] Phone [phone] Care Team Providers Care Recycling Technician Name Role Phone Yariel Mariavor Sophy Primary Care Provider Encounter Details Date Type Department Care Team (Late st Contact Info) Description 02/08/[address] [facility] [address] [facility] [place] [id number] Celina Lau LPN Allergies Active Allergy Reactions Criticality Noted Date Comments Lisinopril Edema face/lips/tongue High 04/05/2018 documented as of this encounter (statuses as of 05/09/2024) Medications Medication Sig Dispensed Refills Start Date End Date Status ONETOUCH ULTRA BLUE STRP USE TO CHECK GLUCOSE 4 TIMES DAILY 100 Strip 11/13/2016 Active ONETOUCH DELICA LANCETS 33G MISC USE ONE TO CHECK GLUCOSE 4 TIMES DAILY 100 Each 11/13/2016 Active Sildenafil Citrate (VIAGRA) 50 MG [...] 11 12/27/2021 Active FreeStyle Rose Marie 2 [place] Device Test blood sugars four times daily 1 Each 12/27/2021 Active Insulin Aspart 100 UNIT/ML Injection Solution 5 Units. Pt takes 5 to 6 units before meals 05/16/2022 Active Gentamicin Sulfate 0.1 % External OintmentIndications:Se condary impetiginization Apply to wounds on hands twice daily 15 g 1 01/28/2023 Active Silver sulfADIAZINE 1 % External Cream (Silvadene) Apply to wounds on hands 100 g 1 04/01/2023 Active Pen [place] 32G X 4 MM Use as directed. Use to inject insulin up to 4 times daily. 30 Each 05/06/2023 Active Pantoprazole Sodium 40 MG Oral [...] 2 12/29/2023 Active FreeStyle Rose Marie 2 [place] DeviceIndications:Type 2 diabetes mellitus with hemoglobin A1c goal of less than 8.0% (HCC),Type 2 diabetes mellitus with polyneuropathy (HCC),Diabetic ulcer of toe of right foot associated with type 2 diabetes mellitus, with fat layer exposed (HCC) Test blood sugar 4 times daily 1 Each 5 01/07/2024 Active FreeStyle Rose Amrie 2 SensorIndications:Type 2 diabetes mellitus with hemoglobin A1c goal of less than 8.0% (HCC),Type 2 diabetes mellitus with polyneuropathy (HCC),Diabetic ulcer of toe of right foot associated with type 2 diabetes mellitus, with fat layer exposed ([facility]) Use as directed. Test blood sugar 4 times daily 1 Each 5 01/07/2024 Active Apixaban 5 MG Oral Tablet (Eliquis)Indications:P AF (paroxysmal atrial fibrillation) ([facility]) Take 1 Tablet by mouth in the morning and 1 Tablet before bedtime. 180 Tablet 3 01/29/2024 Active Finasteride 5 MG Oral Tablet (Proscar) Take 1 Tablet by mouth in the morning. Active Pen [place] 32G X 4 MMIndications:Type 2 diabetes mellitus with hemoglobin A1c goal of less than 8.0% ([facility]) Use as directed. Use to inject insulin up to 4 times daily. 400 Each 3 02/08/2024 Active documented as of this encounter (statuses as of 05/09/2024) Active Problems Problem Noted Date Diagnosed Date Type 2 diabetes mellitus wit h stage 3b chronic kidney disease, with long-term current use of insulin 05/03/2024 Hypertensive heart and kidne y disease with chronic diastolic congestive heart failure and stage 3b chronic kidney disease 05/03/2024 Chronic kidney disease, stage 3b 04/11/2024 Overview: Per CKD protocol Encounter for long-term [...] with fat layer exposed 01/09/2022 Atherosclerosis of [place] co 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 angina pectoris 01/09/2022 [...] as of this encounter (statuses as of 05/09/2024) Resolved Problems Problem Noted Date Diagnosed Date Resolved Date Chronic kidney disease, stage 3b 02/08/2024 03/16/2024 Chronic kidney disease, stage 3a 09/14/2023 03/16/2024 Overview: Per CKD protocol Heart failure 06/05/2022 01/20/2023 Puncture wound of [...] as of this encounter (statuses as of 05/09/2024) Immunizations Name Administration Dates Next Due COVID-19 [...] 08/22/2019 TDAP (age 10 and older)(Boostrix) 02/03/2023 TDAP, Age 7 and older, IM (Adacel) 10/21/2011 Varicella Zoster Vaccine (Adult) 08/03/2012 Zoster [...] money to get more. Never true 02/01/2024 Childcare Answer Date Recorded Do you feel overwhelmed with taking care of a child, family member or friend? No 02/01/2024 Does your family need help f inding childcare? (Household - for ages 0-17 years) Not on file 02/01/2024 Clothing Answer Date Recorded Have you been unable to get clothing when it was really needed? No 02/01/2024 Is your family able to get c lothes or diapers when needed? (Household - for ages 0-17 years) Not on file 02/01/2024 Personal Safety Answer Date Recorded Do you feel unsafe or have concerns for your saf ety? No 02/01/2024 Do you have concerns for you r family's safety? (Household - for ages 0-17 years) Not on file 02/01/2024 Utilities Answer Date Recorded Do you have trouble paying y our heating, water, or electric bill? No 02/01/2024 Is your family able to pay t he heat, water, or electric bill? (Household - for ages 0-17 years) Not on file 02/01/2024 Does your family have access to good internet? (Household - for ages 0-17 years) Not on file 02/01/2024 Employment Status Answer Date Recorded Are you unemployed or without regular income? No 02/01/2024 Does the household have a re gular source of income? (Household - for ages 0-17 years) Not on file 02/01/2024 Social Connections Answer Date Recorded How often do you feel lonely or isolated from th ose around you? Never 02/01/2024 Financial Resource Strain Answer Date R ecorded Do you have any trouble payi ng for your medications, or do you think you might in the future? No 02/01/2024 Does your family have troubl e paying for medicine? (Household - for ages 0-17 years) Not on file 02/01/2024 Transportation Needs Answer Date Record ed READ ONLY Do you have troubl e getting a ride to medical visits or work? Never True 02/01/2024 Does your family have a hard time getting a ride to doctors visits? (Household - for ages 0-17 years) Not on file 02/01/2024 Has lack of transportation k ept you from medical appointments, meetings, work, or from getting things needed for daily living? Check all that apply. (Adult - for ages 18 years and over) Not on file 02/01/2024 Do you (or your family) have trouble finding or paying for a ride (transportation)? (Household - for ages 0-17 years) Not on file 02/01/2024 Housing Stability Answer Date Recorded Do you currently live in a s helter or have no steady place to sleep at night? No 02/01/2024 READ ONLY Do you think you a re at risk of becoming homeless? No 02/01/2024 Does your family worry about paying for your home or becoming homeless? (Household - for ages 0-17 years) Not on file 0 02/01/2024 Are you homeless or worried that you might be in the future? (Adult - for ages 18 years and over) Not on file Are you (or your family) eli eless or worried that you might be in the future? (Household - for ages 0-17 years) Not on file Food Insecurity Answer Date Recorded Do you need food for this week? No 02/01/2024 Are you able to get enough f ood for your family? (Household - for ages 0-17 years) Not on file 02/01/2024 Does your family need food t his week? (Household - for ages 0-17 years) Not on file 02/01/2024 Do you always have enough fo od for your family? (Household - for ages 0-17 years) Not on file 02/01/2024 Sex and Gender Information Value Date Recorded Sex Assigned at Male 11/21/2019 11:44 AM EST Gender Identity Male 11/21/2019 11:44 AM EST Sexual Orientation Straight 11/21/2019 11 :44 AM EST Job Start Date Occupation Industry Not on file Not on file Not on file documented as of this encounter Miscellaneous Notes * Telephone Encounter - Celina Lau LPN - 02/08/2024 4:37 PM EDT Received call from lab upstairs. Pt was seen this afternoon by Dr. Maria and had just had lab draw and near when another pt noted hewas losing his balance. Pt's states this happens on occasion. Pt states she drives pt. Lab requesting BP check. Pt states he is feeling fine at present, but "wants to go home and eat dinner". Pt was able to converse appropriately and had no signs of distress. BP checked with Dinamap L arm: 180/76, Pulse 56. Rechecked BP 2-3 min later with Dinamap BP 170/70, Pulse 56. Advised for pt to have pt to return and have BP rechecked within the next 3-5 days. verbalizes understanding. Contacted pt's to see how pt is doing as they got home now--Farhana states pt is doing fine and will stop in for BP check on 02/11/24 at [facility] appt. documented in this encounter Plan of Treatment Upcoming Encounters Date Type Department Care Team (Late st Contact Info) Description 05/10/2024 2:20 PM EDT Office Visit Family [facility] [address] [place] [address] James Maria, [address] [place] [address] 05/20/2024 5:00 PM EDT Office Visit Nephrology, [facility] [address] [place] [address] Jacek Calderón MD [address] [facility] [address] [place] [address] 06/10/2024 3:00 PM EDT Office Visit Pharmacy, [facility] [address] [address] [facility] [address] [place] [address] 07/27/2024 3:00 PM EDT Office Visit Cardiology, [facility] [address] [place] [address] Shelley Russell PA-C [address] [place] [address] 10/25/2024 1:20 PM EST Office Visit [facility] [address] [place] [address] James Maria, [address] [place] [address] Scheduled Procedures Name Priority Associated Diagnoses Date/Ti me COLONOSCOPY FLEXIBLE PROXIMA L DIAGNOSTIC Recall Encounter for screening colonoscopy Health Maintenance Due Date Last Done Comments COVID-19 Vaccine ( season) 2023 11/17/2022, 02/25/2022, 03/24/2021, Additional history exists Diabetic Eye Exam 09/01/2023 09/01/2022, , 12/15/2019, Additional history exists Albumin/Creatinine Ratio 01/28/2024 023, 06/05/2022, 03/13/2020, Additional history exists Depression Screening 02/19/2024 02/18/2023 Influenza Vaccine (FLU shot) (#1) 2024 07/13/2023, 08/05/2022, 08/10/2021, Additional history exists GFR 08/09/2024 02/08/2024, 10/03, 08/26/2023, Additional history exists HbA1c 08/09/2024 02/08/2024, 05/02, 01/27/2023, Additional history exists CKD PHOS USE SMARTSET 22176 08/26/2024 08/26/2023 CKD HGB USE SMARTSET 66798 10/23/202410/23, 08/26/2023, 08/26/2023, Additional history exists Diabetic Foot Exam 02/07/2025 02/08/2024, 1 , 02/28/2021, Additional history exists DTaP,Tdap,and Td Vaccines (3 - Td or Tdap) 02/03/2033 02/03/2023, 10/21/2011, 11/09/2003 Pneumococcal Vaccine: 65+ Years Completed 12/24/2015, 07/23/2011 Zoster Vaccines Completed 03/13/2020, 11/03, 08/03/2012 HPV (Gardasil) Vaccine Aged Out No lo nger eligible based on patient's age to complete this topic Hepatitis B Vaccine Aged Out No longe r eligible based on patient's age to complete this topic MENINGOCOCCAL (MENACTRA/MENVEO) Aged Out No longer eligible based on patient's age to complete this topic documented as of this encounter Medical Devices Not on filedocumented as of this encounter Advance Directives Healthcare Agents on File Name Relationship Healthcare Agent Relationshi p Communication Farhana Sebastian Spouse Health Care Agent Care Teams Recycling Technician Relationship Specialty Start Date End Date James Maria DO [address] [place] [address] PCP - General Family Medicine 06/07/18 documented as of this encounter
--- OUTSIDE RECORDS SUMMARY | 2024-05-12 19:07 | External Medical Summary | Summary of Care ---
Author Name Unknown Organization [facility] Address [address] [place] [place] [address] Phone [phone] Care Team Providers Care Smoking Pipe Liner Name Role Phone James Maria DO Primary Care Provider Reason for Visit * Reason Onset Date Comments Status Check 04/27/2024 FYI 04/27/2024 Encounter Details Date Type Department Care Team (Late st Contact Info) Description 04/27/2024 Telephone Family Practice [facility] [address] [place] [address] James Maria DO [address] [place] [address] Status Check; Allergies Active Allergy Reactions Criticality Noted Date Comments Lisinopril Edema face/lips/tongue High 04/05/2018 documented as of this encounter (statuses as of 05/04/2024) Medications Medication Sig Dispensed Refills Start Date [...] 11 12/27/2021 Active FreeStyle Rose Marie 2 [place] Device Test blood sugars four times daily [...] hands 100 g 1 04/01/2023 Active Pen [place] 32G X 4 MM Use as directed. [...] 2 12/29/2023 Active FreeStyle Rose Marie 2 [place] DeviceIndications:Type 2 diabetes mellitus with hemoglobin A1c [...] Oral Tablet (Eliquis)Indications:P AF (paroxysmal atrial fibrillation) (HCC) Take 1 Tablet by mouth in the morning and 1 Tablet before bedtime. 180 Tablet 3 01/29/2024 Active Finasteride 5 MG Oral Tablet (Proscar) Take 1 Tablet by mouth in the morning. Active [place] 32G X 4 MMIndications:Type 2 diabetes mellitus [...] BEFORE BEDTIME 180 Tablet 1 02/20/2024 Active Atorvastatin Calcium 40 MG Oral Tablet (Lipitor)Indications:D yslipidemia TAKE ONE TABLET BY MOUTH EVERY DAY 90 Tablet 1 03/14/2024 Active FreeStyle Rose Marie 2 [place] Device Test blood sugar 4 times daily 1 Each 03/14/2024 Active FreeStyle Rose Marie 2 Sensor Use as directed. Test blood sugar 4 times daily 1 Each 03/14/2024 Active documented as of this encounter (statuses as of 05/04/2024) Active Problems Problem Noted Date Diagnosed Date [...] with fat layer exposed 01/09/2022 Atherosclerosis of [place] co 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 angina pectoris 01/09/2022 [...] as of this encounter (statuses as of 05/04/2024) Resolved Problems Problem Noted Date Diagnosed Date [...] as of this encounter (statuses as of 05/04/2024) Immunizations Name Administration Dates Next Due COVID-19 [...] encounter Miscellaneous Notes * Telephone Encounter - Kitty Laboy LPN - 05/04/2024 9:30 AM EDT Noted. Have been in contact with [facility]. See [facility] note dated 05/03 for update * Telephone Encounter - Celina Lau LPN - 04/28/2024 4:28 PM EDT (FYI)Contacted , Farhana who states she did contact pt yesterday and spoke with him at [place] area behind their old house. states is health is "pretty good" to her knowledge at this time. Pt would like to have pt live with her and daughter, but is only coded for 2 people to live there. Farhana states she will product picker pt tomorrow for haircut. Advised Farhana to contact our office if any changes. Farhana declines that our office should contact police at this time as she states she does not feel ptis in any imminent danger. states pt has appt on 05/03/2024 with Care Coordination. Advised to reach out to our office with any changes in information. * Telephone Encounter - Celina Lau LPN - 04/27/2024 2:06 PM EDT Attempted to contact pt's , Farhana, to check pt status. Left detailed message for Farhana to return call for update. Pt did not show for Hosp F/u 04/26/[address] Maria. See 04/26/2024 Pt Outreach TE. Did contact [facility] to receive update on any information on pt. Per documentation from [facility] D[facility] notes, [facility] was contacted due to pt wounds, living status and social needs. Spoke with Gabriela at [facility], they were not able to do a visit as they are "aware of only a vicinity of area where pt is located and not a permanent housing address". Also, stated that meal assistance cannot be provided as there is not cooking or refrigerator needs for pt at present. Gabriela states pt's , Farhana was given information on Housing transitions for pt on 04/25/24. No further actions can be taken for pt at this time per [facility]. Per Case Management, a [facility] worker will be making an attempt for pt visitation tomorrow at pt's location. Will follow up after 04/27/24 visit with [facility]. documented in this encounter Plan of Treatment Upcoming Encounters Date Type Department Care Team (Late st Contact Info) Description 05/10/2024 2:20 PM EDT Office Visit [facility] [address] [place] [address] James Maria DO [address] [place] [address] 05/20/2024 5:00 PM EDT Office Visit Nephrology, [facility] [address] [place] [address] Jacek Calderón MD [address] [place] [address] 06/10/2024 3:00 PM EDT Office Visit Pharmacy, [facility] [address] [place] [address] [facility] [address] [place] [address] 07/27/2024 3:00 PM EDT Office Visit Cardiology, [facility] [address] [place] [address] Shelley Russell PA-C [address] [place] [address] 10/25/2024 1:20 PM EST Office Visit [facility] [address] [place] [address] James Maria, DO [address] [place] [address] Scheduled Procedures Name Priority Associated Diagnoses Date/Ti [...] Additional history exists CKD PHOS USE SMARTSET 59800 08/26/2024 08/26/2023 CKD HGB USE SMARTSET 33657 10/23/202410/23, 08/26/2023, 08/26/2023, Additional history exists Diabetic [...] Agents on File Name Relationship Healthcare Agent [facility] p Communication Farhana Sebastian Spouse Health Care Agent Care Teams Smoking Pipe Liner Relationship Specialty Start Date End Date James Maria DO [address] [place] [address] PCP - General Family Medicine 06/07/18 documented as of this encounter
--- OUTSIDE RECORDS SUMMARY | 2024-05-12 19:07 | External Medical Summary | Summary of Care ---
Author Name Unknown Organization [facility] Address [address] [place] [address] Phone [phone] Care Team Providers Care Cleaning And Washing Equipment Operator Name Role Phone James Maria Primary Care Provider Encounter Details Date Type Department Care Team (Late st Contact Info) Description 05/03/2024 2:30 PM EDT Home Visit Care Coordination and Integration [address], [place] [phone] Shani Herrera, Community Health Retail Marketing Executive [address], [place] [phone] Allergies Active Allergy Reactions Criticality Noted Date Comments Lisinopril Edema face/lips/tongue High 04/05/2018 documented as of this encounter (statuses as of 05/03/2024) Medications Medication Sig Dispensed Refills Start Date [...] MLIndications:Type 2 diabetes mellitus with polyneuropathy ([facility]),Type 2 diabetes mellitus with hemoglobin A1c goal of less than 8.0% ([facility]) Use up to 4 x a day for insulin dosing E11.9 3 Each 1 09/05/2021 Active FreeStyle Rose Marie 2 Sensor Test blood sugars four times daily 2 Each 11 12/27/2021 Active FreeStyle Rose Marie 2 [place] Device Test blood sugars four times daily [...] hands 100 g 1 04/01/2023 Active Pen [place] 32G X 4 MM Use as directed. [...] 2 12/29/2023 Active FreeStyle Rose Marie 2 [place] DeviceIndications:Type 2 diabetes mellitus with hemoglobin A1c goal of less than 8.0% ([facility]),Type 2 diabetes mellitus with polyneuropathy ([facility]),Diabetic ulcer of toe of right foot associated with type 2 diabetes mellitus, with fat layer exposed ([facility]) Test blood sugar 4 times daily 1 [...] by mouth in the morning. Active Pen [place] 32G X 4 MMIndications:Type 2 diabetes mellitus [...] DAY 90 Tablet 1 03/14/2024 5 Active FreeStyle Rose Marie 2 [place] Device Test blood sugar 4 times daily 1 Each 5 03/14/2024 Active FreeStyle Rose Marie 2 Sensor Use as directed. Test blood sugar 4 times daily 1 Each 03/14/2024 Active documented as of this encounter (statuses as of 05/03/2024) Active Problems Problem Noted Date Diagnosed Date [...] with fat layer exposed 01/09/2022 Atherosclerosis of [place] co 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 angina pectoris 01/09/2022 [...] as of this encounter (statuses as of 05/03/2024) Resolved Problems Problem Noted Date Diagnosed Date [...] 04/15/2022 05/22/2022 Wound of right leg 03/20/2022 Mixed obsessional thoughts and acts 11/21/2019 01/09/2022 [...] as of this encounter (statuses as of 05/03/2024) Immunizations Name Administration Dates Next Due COVID-19 [...] 02/01/2024 Does the household have a re lar source of income? (Household - for ages [...] of this encounter Progress Notes * Shani Herrera, Community Health Retail Marketing Executive - 05/03/2024 3:04 PM EDT Telemedicine visit: No Community Health Retail Marketing Executive (ARABELLA) documentation: CHW went to completed cold visit for the second time and went to address [address] and did not locate patient. CHW then called [facility] Storage unit in [place] and spoke to support services manager, support services manager reported that he had just spoken to Selvin a few days ago about his van that was broken down there and that he needed to get it out of there. Green Marketer saw Selvin then and he was moving stuff around and took the van. Green Marketer reported that Selvin said he was doing better. Shani Herrera- Community Health Worker 1 Support Services/[facility] [employer] [facility] [email or web address] documented in this encounter Plan of Treatment Upcoming Encounters Date Type Department Care Team (Late st Contact Info) Description 05/10/2024 2:20 PM EDT Office Visit Family Practice [facility] [address] [address] James Maria DO [address] [place] [address] 05/20/2024 5:00 PM EDT Office Visit Nephrology, [facility] [address] [place] [address] Jacek Calderón MD 200 [facility] [place] [address] 06/10/2024 3:00 PM EDT Office Visit Pharmacy, [facility] [address] [address] [facility] [address] [address] 07/27/2024 3:00 PM EDT Office Visit Cardiology, [facility] [address] [address] Shelley Russell PA-C [address] [place] [address] 10/25/2024 1:20 PM EST Office Visit Family [facility] [address] [place] [address] James Maria, [address] [place] [address] Scheduled Procedures Name Priority Associated Diagnoses Date/Ti [...] 08/26/2023, Additional history exists HbA1c 08/09/2024 02/08/2024, 0706/2023, 01/27/2023, Additional history exists CKD PHOS USE SMARTSET 54233 08/26/2024 08/26/2023 CKD HGB USE SMARTSET 38828 10/23/202410/23, 08/26/2023, 08/26/2023, Additional history exists Diabetic [...] Sebastian Spouse Health Care Agent Care Teams Cleaning And Washing Equipment Operator Relationship Specialty Start Date End Date James Maria DO [address] [place] [address] PCP - General Family Medicine 06/07/18 documented as of this encounter
--- OUTSIDE RECORDS SUMMARY | 2024-05-12 19:07 | External Medical Summary | Summary of Care ---
Author Name Unknown Organization [facility] Address [address] [place] [address] Phone [phone] Care Team Providers Care Painter And Paperhanger Apprentice Name Role Phone James Maria Primary Care Provider Encounter Details Date Type Department Care Team (Late st Contact Info) Description 05/03/2024 2:30 PM EDT Home Visit Care Coordination and Integration [address] [place], [place] [phone] Shani Herrera, Community Health Farmworker Machine [address], [place] [phone] Allergies Active Allergy Reactions Criticality Noted Date [...] 11 12/27/2021 Active FreeStyle Rose Marie 2 [place] Device Test blood sugars four times [...] hands 100 g 1 04/01/2023 Active Pen [place] 32G X 4 MM Use as directed. [...] 2 12/29/2023 Active FreeStyle Rose Marie 2 [place] DeviceIndications:Type 2 diabetes mellitus with hemoglobin A1c goal of less than 8.0% ([facility]),Type 2 diabetes mellitus with polyneuropathy ([facility]),Diabetic ulcer of toe of right foot associated with type 2 diabetes mellitus, with fat layer exposed ([facility]) Test blood sugar 4 times daily [...] by mouth in the morning. Active Pen [place] 32G X 4 MMIndications:Type 2 diabetes mellitus [...] 03/14/2024 5 Active FreeStyle Rose Marie 2 [place] Device Test blood sugar 4 times daily [...] with fat layer exposed 01/09/2022 Atherosclerosis of [place] co 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 angina pectoris 01/09/2022 [...] Progress Notes * Shani Herrera, Community Health Farmworker Machine - 05/03/2024 3:04 PM EDT Telemedicine visit: No Community Health Farmworker Machine (ARABELLA) documentation: CHW went to completed cold visit for the second time and went to address [address] and did not locate patient. CHW then called [facility] Storage unit in [place] and spoke to home care attendant, home care attendant reported that he had just spoken to Selvin a few days ago about his van that was broken down there and that he needed to get it out of there. Stitcher Operator saw Selvin then and he was moving stuff around and took the van. Stitcher Operator reported that Selvin said he was doing better. Shani Herrera- Community Health Worker 1 Support Services/[facility] [employer] [facility] [employer] documented in this encounter Plan of Treatment Upcoming Encounters Date Type Department Care Team (Late st Contact Info) Description 05/10/2024 2:20 PM EDT Office Visit Family Practice [facility] [address] [address] James Maria DO [address] [place] [address] 05/20/2024 5:00 PM EDT Office Visit Nephrology, [facility] [address] [place] [address] Jacek Calderón MD 200 [facility] [place] [address] 06/10/2024 3:00 PM EDT Office Visit Pharmacy, [facility] [address] [address] [facility] [address] [address] 07/27/2024 3:00 PM EDT Office Visit Cardiology, [facility] [address] [address] Shelley Russell PA-C [address] [place] [address] 10/25/2024 1:20 PM EST Office Visit Family [facility] [address] [place] [address] James Maria, [address] [place] [address] Scheduled Procedures Name Priority Associated Diagnoses Date/Ti [...] Additional history exists CKD PHOS USE SMARTSET 14851 08/26/2024 08/26/2023 CKD HGB USE SMARTSET 29369 10/23/202410/23, 08/26/2023, 08/26/2023, Additional history exists Diabetic [...] Sebastian Spouse Health Care Agent Care Teams Painter And Paperhanger Apprentice Relationship Specialty Start Date End Date James Maria DO [address] [place] [address] PCP - General Family Medicine 06/07/18 documented as of this encounter
--- OUTSIDE RECORDS SUMMARY | 2024-05-12 19:07 | External Medical Summary | Summary of Care ---
Author Name Unknown Organization [facility] Address [address] [place] [address] Phone [phone] Care Team Providers Care Customer Field Representative Name Role Phone James Maria Primary Care Provider Encounter Details Date Type Department Care Team (Late st Contact Info) Description 05/03/2024 2:30 PM EDT Home Visit Care Coordination and Integration [address] [place], [place] [phone] Shani Herrera, Community Health Medical Radiation Tech [address] [place], [place] [phone] Allergies Active Allergy Reactions Criticality Noted Date [...] 11 12/27/2021 Active FreeStyle Rose Marie 2 [place] Device Test blood sugars four times daily [...] hands 100 g 1 04/01/2023 Active Pen [place] 32G X 4 MM Use as directed. [...] 2 12/29/2023 Active FreeStyle Rose Marie 2 [place] DeviceIndications:Type 2 diabetes mellitus with hemoglobin A1c goal of less than 8.0% ([facility]),Type 2 diabetes mellitus with polyneuropathy ([facility]),Diabetic ulcer of toe of right foot associated with type 2 diabetes mellitus, with fat layer exposed ([facility]) Test blood sugar 4 times [...] by mouth in the morning. Active Pen [place] 32G X 4 MMIndications:Type 2 diabetes mellitus [...] 03/14/2024 5 Active FreeStyle Rose Marie 2 [place] Device Test blood sugar 4 times daily [...] layer exposed 01/09/2022 Atherosclerosis of [place] co 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 angina pectoris 01/09/2022 [...] Progress Notes * Shani Herrera, Community Health Medical Radiation Tech - 05/03/2024 3:04 PM EDT Telemedicine visit: No Community Health Medical Radiation Tech (ARABELLA) documentation: CHW went to completed cold visit for the second time and went to address [address] and did not locate patient. CHW then called [facility] Storage unit in [place] and spoke to line haul owner operator, line haul owner operator reported that he had just spoken to Selvin a few days ago about his van that was broken down there and that he needed to get it out of there. Stationary Engineer Apprentice saw Selvin then and he was moving stuff around and took the van. Stationary Engineer Apprentice reported that Selvin said he was doing better. Shani Herrera- Community Health Worker 1 Support Services/[facility] [email or web address] documented in this encounter Plan of Treatment Upcoming Encounters Date Type Department Care Team (Late st Contact Info) Description 05/10/2024 2:20 PM EDT Office Visit Family Practice [facility] [address] [address] James Maria DO [address] [place] [address] 05/20/2024 5:00 PM EDT Office Visit Nephrology, [facility] [address] [place] [address] Jacek Calderón MD 200 [facility] [place] [address] 06/10/2024 3:00 PM EDT Office Visit Pharmacy, [facility] [address] [address] [facility] [address] [address] 07/27/2024 3:00 PM EDT Office Visit Cardiology, [facility] [address] [address] Shelley Russell PA-C [address] [place] [address] 10/25/2024 1:20 PM EST Office Visit Family [facility] [address] [place] [address] James Maria, [address] [place] [address] Scheduled Procedures Name Priority Associated Diagnoses Date/Ti [...] Additional history exists CKD PHOS USE SMARTSET 59689 08/26/2024 08/26/2023 CKD HGB USE SMARTSET 92411 10/23/202410/23, 08/26/2023, 08/26/2023, Additional history exists Diabetic [...] Spouse Health Care Agent Care Teams Customer Field Representative Relationship Specialty Start Date End Date James Maria DO [address] [place] [address] PCP - General Family Medicine 06/07/18 documented as of this encounter
--- OUTSIDE RECORDS SUMMARY | 2024-05-12 19:07 | External Medical Summary | Summary of Care ---
Author Name Unknown Organization [facility] Address [address] [place] [address] Phone [phone] Care Team Providers Care Commercial Lines Account Assistant Name Role Phone James Maria Primary Care Provider Encounter Details Date Type Department Care Team (Late st Contact Info) Description 05/03/2024 2:30 PM EDT Home Visit Care Coordination and Integration [address], [place] [phone] Shani Herrera, Community Health Securities Broker [address], [place] [phone] Allergies Active Allergy Reactions Criticality Noted Date Comments Lisinopril Edema face/lips/tongue High 04/05/2018 documented as of this encounter (statuses as of 05/06/2024) Medications Medication Sig Dispensed Refills Start Date [...] 11 12/27/2021 Active FreeStyle Rose Marie 2 [place] Device Test blood sugars four times daily [...] hands 100 g 1 04/01/2023 Active Pen [place] 32G X 4 MM Use as directed. [...] 2 12/29/2023 Active FreeStyle Rose Marie 2 [place] DeviceIndications:Type 2 diabetes mellitus with hemoglobin A1c [...] by mouth in the morning. Active Pen [place] 32G X 4 MMIndications:Type 2 diabetes mellitus [...] 03/14/2024 5 Active FreeStyle Rose Marie 2 [place] Device Test blood sugar 4 times daily 1 Each 5 03/14/2024 Active FreeStyle Rose Marie 2 Sensor Use as directed. Test blood sugar 4 times daily 1 Each 03/14/2024 Active documented as of this encounter (statuses as of 05/06/2024) Active Problems Problem Noted Date Diagnosed Date [...] with fat layer exposed 01/09/2022 Atherosclerosis of [place] co 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 angina pectoris 01/09/2022 [...] as of this encounter (statuses as of 05/06/2024) Resolved Problems Problem Noted Date Diagnosed Date [...] as of this encounter (statuses as of 05/06/2024) Immunizations Name Administration Dates Next Due COVID-19 [...] Progress Notes * Shani Herrera, Community Health Securities Broker - 05/03/2024 3:04 PM EDT Telemedicine visit: No Community Health Securities Broker (ARABELLA) documentation: CHW went to completed cold visit for the second time and went to address [address] and did not locate patient. CHW then called [facility] Storage unit in [place] and spoke to steam power plant operator, steam power plant operator reported that he had just spoken to Selvin a few days ago about his van that was broken down there and that he needed to get it out of there. Plane Runner saw Selvin then and he was moving stuff around and took the van. Plane Runner reported that Selvin said he was doing better. Shani Herrera- Community Health Worker 1 Support Services/[facility] Plan [email or web address] documented in this encounter Plan of Treatment Upcoming Encounters Date Type Department Care Team (Late st Contact Info) Description 05/10/2024 2:20 PM EDT Office Visit Family Practice [facility] [address] [address] James Maria DO [address] [place] [address] 05/20/2024 5:00 PM EDT Office Visit Nephrology, [facility] [address] [place] [address] Jacek Calderón MD 200 [facility] [place] [address] 06/10/2024 3:00 PM EDT Office Visit Pharmacy, [facility] [address] [address] [facility] [address] [address] 07/27/2024 3:00 PM EDT Office Visit Cardiology, [facility] [address] [address] Shelley Russell PA-C [address] [place] [address] 10/25/2024 1:20 PM EST Office Visit Family [facility] [address] [place] [address] James Maria, [address] [place] [address] Scheduled Procedures Name Priority Associated Diagnoses Date/Ti [...] Additional history exists CKD PHOS USE SMARTSET 93417 08/26/2024 08/26/2023 CKD HGB USE SMARTSET 03440 10/23/202410/23, 08/26/2023, 08/26/2023, Additional history exists Diabetic [...] Sebastian Spouse Health Care Agent Care Teams Commercial Lines Account Assistant Relationship Specialty Start Date End Date James Maria DO [address] [place] [address] PCP - General Family Medicine 06/07/18 documented as of this encounter
--- OUTSIDE RECORDS SUMMARY | 2024-05-12 19:07 | External Medical Summary | Summary of Care ---
Author Name Unknown Organization [facility] Address [address] [place] [address] Phone [phone] Care Team Providers Care Barrel Reamer Name Role Phone James Maria DO Primary Care Provider Reason for Referral * Social Care (Within 3 days (urgent)) - Authorized Specialty Diagnoses / Procedures Referred By Collin leigh Referred To Contact Fans Clerk Diagnoses Hospital discharge follow-up Type 2 diabetes mellitus with stage 3b chronic kidney disease, with long-term current use of insulin (HCC) James Maria DO [address] [place] [address] Referral ID Status Reason Start Date Expiration Date Visits Requested Visits Authorized [id number] Authorized Specialty Services Required 05/10/[phone] Question Answer Referral Priority Within 3 days (urgent) Where should this appointment be scheduled? [facility] Role Clinical Trials Manager Clinical Trials Manager Referral Reason Frail Elderly, High Utilizer/Patient Comments Is patient being transitioned from [facility] to Complex Case Management? No Reason for Visit * Reason Onset Date Comments Return Visit Pt here for Hosp F/u. Wound Clinic at [facility] for L heel wound, last appt approx 10 days ago. Pt to see again on 05/20/24. Hospital Follow-Up 05/10/2024 Encounter Details Date Type Department Care Team (Latest Contact Info) Description 05/10/2024 2:20 PM EDT Office Visit Family [facility] [address] [place] [address] James Maria, DO [address] [place] [address] Hospital discharge follow-up*; Type 2 diabetes mellitus with stage 3b chronic kidney disease, with long-term current use of insulin (HCC); Diabetic ulcer of toe of right foot associated with type 2 diabetes mellitus, with fat layer exposed (HCC); Type 2 diabetes mellitus with polyneuropathy (HCC); Chronic heart failure with preserved ejection fraction (HCC); Paroxysmal atrial fibrillation (HCC); Hypertensive heart disease with chronic diastolic congestive heart failure (HCC); Hypertensive heart and kidney disease with chronic diastolic congestive heart failure and stage 3b chronic kidney disease (HCC); HTN, goal below 130/80; Chronic kidney disease, stage 3b (HCC); Encounter for long-term (current) insulin use (HCC); Type 2 diabetes mellitus with hemoglobin A1c goal of less than 8.0% (HCC); Gastroesophageal reflux disease without esophagitis; Lack of adequate food and safe drinking water Allergies Active Allergy Reactions Criticality Noted Date Comments Lisinopril Edema face/lips/tongue High 04/05/2018 documented as of this encounter (statuses as of 05/10/2024) Medications Medication Sig Dispensed Refills Start Date End Date Status ONETOUCH ULTRA BLUE STRP USE TO CHECK GLUCOSE 4 TIMES DAILY 100 Strip 11/13/19 17 Active ONETOUCH DELICA LANCETS 33G MISC USE ONE TO CHECK GLUCOSE 4 TIMES DAILY 100 Each 11/13/19 17 Active Sildenafil Citrate (VIAGRA) 50 [...] hemoglobin A1c goal of less than 8.0% ([facility]) Use up to 4 x a day for insulin dosing E11.9 3 Each 1 09/05/20 21 Active Insulin Aspart 100 UNIT/ML Injection Solution 5 Units. Pt takes 5 to 6 units before meals 05/16/20 22 Active Gentamicin Sulfate 0.1 % External OintmentIndications :Secondary impetiginization Apply to wounds on hands twice daily 15 g 1 01/29/20 23 Active Silver sulfADIAZINE 1 % External Cream (Silvadene) Apply to wounds on hands 100 g 1 04/01/20 23 Active Pen [place] 32G X 4 MM Use as directed. Use to inject insulin up to 4 times daily. 30 Each 05/06/20 23 Active Ammonium Lactate 12 % External Cream Apply to both feet once daily. 280 g 09/30/20 23 Active Xultophy 100-3.6 UNIT-MG/ML Subcutaneous Solution Pen-injector (Insulin Degludec-Liraglutid e) Inject 15 Units under the skin at bedtime. 15 mL 5 11/05/19 24 Active Tamsulosin HCl 0.4 MG Oral Capsule (Flomax)Indications :BPH with obstruction/lower urinary tract symptoms TAKE ONE CAPSULE BY MOUTH EVERY MORNING 100 Capsule 2 12/29/19 24 025 Active Apixaban 5 MG Oral Tablet (Eliquis)Indication s:PAF (paroxysmal atrial fibrillation) ([facility]) Take 1 Tablet by mouth in the morning and 1 Tablet before bedtime. 180 Tablet 3 01/29/20 24 Active Finasteride 5 MG Oral Tablet (Proscar) Take 1 Tablet by mouth in the morning. Active Pen [place] 32G X 4 MMIndications:Type 2 diabetes mellitus with hemoglobin A1c goal of less than 8.0% ([facility]) Use as directed. Use to inject insulin up to 4 times daily. 400 Each 3 02/08/20 24 Active Metoprolol Tartrate 25 MG Oral Tablet (Lopressor)Indicati ons:Chronic atrial fibrillation (HCC) TAKE ONE TABLET BY MOUTH TWICE A DAY -- IN THE MORNING AND BEFORE BEDTIME 180 Tablet 1 02/20/20 24 025 Active Atorvastatin Calcium 40 MG Oral Tablet (Lipitor)Indication s:Dyslipidemia TAKE ONE TABLET BY MOUTH EVERY DAY 90 Tablet 1 03/14/20 24 025 Active OneTouch Verio w/Device KitIndications:Type 2 diabetes mellitus with stage 3b chronic kidney disease, with long-term current use of insulin (HCC) Use up to 4 times a day E11.9 1 Kit 05/10/20 24 Active OneTouch Verio In Vitro Strip (Glucose Blood)Indications:T ype 2 diabetes mellitus with stage 3b chronic kidney disease, with long-term current use of insulin (HCC) Use up to 4 times a day E11.9 300 Strip 3 05/10/20 24 Active Pantoprazole Sodium 40 MG Oral Tablet Delayed Release (Protonix)Indicatio ns:Gastroesophageal reflux disease without esophagitis Take 1 Tablet by mouth in the morning. 90 Tablet 3 05/10/20 24 Active FreeStyle Rose Marie 2 Sensor Test blood sugars four times daily 2 Each 11 12/27/19 22 024 Discontinued FreeStyle Rose Marie 2 [place] Device Test blood sugars four times daily 1 Each 12/27/19 22 024 Discontinued Pantoprazole Sodium 40 MG Oral Tablet Delayed Release (Protonix)Indicatio ns:Gastroesophageal reflux disease without esophagitis Take 1 Tablet by mouth in the morning. 90 Tablet 3 08/24/20 23 024 Discontinued(Re fill) FreeStyle Rose Marie 2 [place] DeviceIndications:T ype 2 diabetes mellitus with hemoglobin A1c goal of less than 8.0% (HCC),Type 2 diabetes mellitus with polyneuropathy (HCC),Diabetic ulcer of toe of right foot associated with type 2 diabetes mellitus, with fat layer exposed (HCC) Test blood sugar 4 times daily 1 Each 5 01/07/20 24 024 Discontinued FreeStyle Rose Marie 2 SensorIndications:T ype 2 diabetes mellitus with hemoglobin A1c goal of less than 8.0% (HCC),Type 2 diabetes mellitus with polyneuropathy (HCC),Diabetic ulcer of toe of right foot associated with type 2 diabetes mellitus, with fat layer exposed (HCC) Use as directed. Test blood sugar 4 times daily 1 Each 01/07/20 24 024 Discontinued FreeStyle Rose Marie 2 [place] Device Test blood sugar 4 times daily 1 Each 03/14/20 24 024 Discontinued FreeStyle Rose Marie 2 Sensor Use as directed. Test blood sugar 4 times daily 1 Each 03/14/20 24 024 Discontinued OneTouch UltraSoft LancetsIndications: Type 2 diabetes mellitus with stage 3b chronic kidney disease, with long-term current use of insulin (HCC) Use as directed 4 times a day as needed for Hypoglycemia (low sugar) or Hyperglycemia (high sugar). Use up to four times a day as directed 300 Each 5 05/10/20 24 024 Discontinued(Me dication/Dose Changed) documented as of this encounter (statuses as of 05/10/2024) Active Problems Problem Noted Date Diagnosed Date Lack of adequate food and safe drinking water Type 2 diabetes mellitus wit h stage [...] fat layer exposed 01/09/2022 Atherosclerosis of craig co 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 angina pectoris 01/09/2022 [...] as of this encounter (statuses as of 05/10/2024) Resolved Problems Problem Noted Date Diagnosed Date [...] as of this encounter (statuses as of 05/10/2024) Immunizations Name Administration Dates Next Due COVID-19 [...] Sign Reading Time Taken Comments Blood Pressure 108/64 05/10/2024 2:00 PM EDT Pulse 55 05/10/2024 2:00 PM EDT Temperature 36.1 C (97 F) 05/10/2024 2:00 PM EDT Respiratory Rate 16 05/10/2024 2:00 PM EDT Oxygen Saturation 95% 05/10/2024 2:00 PM EDT Inhaled Oxygen Concentration - - Weight 80.4 kg (177 lb 3 oz) 05/10/2024 2:00 PM EDT Height - - Body Mass Index 31.01 08/26/2023 9:02 AM EDT documented in this encounter Patient Instructions * Patient Instructions* James Maria DO - 05/10/2024 2:04 PM EDT Coping with Your Diagnosis of a Chronic Health Condition If you have a chronic health condition, you have a problem that may not go away over time. Heart disease, asthma, arthritis, and diabetes are just a few of the chronic conditions that exist. Right now, these conditions have no known cure. But you can take an active role in managing your health. Coping with Your Diagnosis If you've just learned about your health condition, you may be angry, depressed, or afraid. Or you might feel relieved just to know what's wrong. Even if you've known about your health problem for a while, adjusting to it can be hard. But learning about your condition can help you cope. Look for books at your local library. If you have access to a computer, check the Internet. Or contact a group that focuses on your specific problem. Accepting Change Change is hard for most people. Yet right now you may be facing many changes. What you eat or the way you work may change. Your moods, and even your symptoms, might vary from day to day. Although it isn't easy, learning to accept change can help you feel more in control. Taking Control Feeling you have control can make living with your condition easier. Discuss treatment options withyour health care provider. The more you know, the more active you can be in your care. Moving Forward You may wonder whether you will be able to do the things you've always done. That depends on your age, the condition you have, and your goals. To make the most of each day, try to build caring relationships, be active, and eat right. Also, do your best to keep a sense of humor. [facility], [address] [place] [address], [place] [address]. All rights reserved. This information is not intended as a substitute for professional medical care. Always follow your healthcare professional's instructions. Taking an Active Role in Your Medicines Take the time to learn about your medicine. For instance, why are you taking it? What does it do? Work with your doctor or other health care providers to get the answers you need. Talk to your pharmacist about how to take each medicine, and ask for a fact sheet on each one. Ask Questions About Your Medicine What is the name of the medicine? Why do I need to take it? When should I take it? How should I take it: with water? with food? on an empty stomach? How much do I take? What do I do if I miss a dose? What side effects could it cause and which ones should I call the doctor about? Are there any foods or medicines I should avoid while taking this medicine? Keeping track of your medications? Name of medicine: Taken for: Dose: Time(s) to take it: Take an Active Role Fill all your prescriptions at the same pharmacy. This keeps your medicine history in one place. Talk to the pharmacist. Make sure you understand how to take each medicine. Ask for a fact sheet about each one. Tell your doctor and pharmacist about all the prescription and [id number] medicines you take.This includes vitamins and herbal remedies. Tell your doctor and pharmacist if you have any medical conditions or allergies to any medicine or food, or if you are or . Keep a list of all your medicines. Use the sample to the right as a guide for the type of information needed. [id number] [facility], [address] [place] [address], [place] [address]. All rights reserved. This information is not intended as a substitute for professional medical care. Always follow your healthcare professional's instructions. documented in this encounter Progress Notes * James Maria DO - 05/10/2024 2:04 PM EDT SUBJECTIVE: Selvin Sebastian is a 78 year old male. Chief Complaint Patient presents with Return Visit Pt here for Hosp F/u. Wound Clinic at [facility] for L heel wound, last appt approx 10 days ago.Pt to see again on 05/20/24. Hospital Follow-Up Recent Admission: Patient was recently admitted to [facility] on the 15 of April. The date of discharge was the 22 of April. Discharge report received and reviewed. HPI: patient has been living in a van or in a storage shed, has limited access to water/food/medication, but has been taking care of his wounds when he goes home. Communication remains difficultb/c of his lack of hearing, and it remains unclear why he does not stabilize his living situation with his . It seems there is some relational rift there, and he continues to desire living alone. 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 Hoarding behavior Paroxysmal atrial fibrillation (HCC) Moderate aortic stenosis Overweight (BMI 25.0-29.9) Unsteady gait when walking Cellulitis of toe of left foot Nonrheumatic aortic valve stenosis Chronic heart failure with preserved ejection fraction (HCC) Hypertensive heart disease with chronic diastolic congestive heart failure ([facility]) Medical home patient encounter Encounter for long-term (current) insulin use (HCC) Chronic kidney disease, stage 3b (HCC) Type 2 diabetes mellitus with stage 3b chronic kidney disease, 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 280 g 5 Xultophy 100-3.6 UNIT-MG/ML Subcutaneous Solution Pen-injector (Insulin Degludec-Liraglutide) Inject 15 Units under the skin at bedtime. 15 mL 5 Tamsulosin HCl 0.4 MG Oral Capsule (Flomax) TAKE ONE CAPSULE BY MOUTH EVERY MORNING 100 Capsule 2 Apixaban 5 MG Oral Tablet (Eliquis) Take 1 Tablet by mouth in the morning and 1 Tablet before bedtime. 180 Tablet 3 Finasteride 5 MG Oral Tablet (Proscar) Take 1 Tablet by mouth in the morning. Metoprolol Tartrate 25 MG Oral Tablet (Lopressor) TAKE ONE TABLET BY MOUTH TWICE A DAY -- IN THE MORNING AND BEFORE BEDTIME 180 Tablet 1 Atorvastatin Calcium 40 MG Oral Tablet (Lipitor) TAKE ONE TABLET BY MOUTH EVERY DAY 90 Tablet 1 [employer] Verio w/Device Kit Use up to 4 times a day E11.9 1 Kit 0 [employer]*Touch Verio In Vitro Strip (Glucose Blood) Use up to 4 times a day E11.9 300 Strip 3 Pantoprazole Sodium 40 MG Oral Tablet Delayed Release (Protonix) Take 1 Tablet by mouth in the morning. 90 Tablet 3 Pen [place] 32G X 4 MM Use as directed. Use to inject insulin up to 4 times daily. 30 Each 0 Pen [place] 32G X 4 MM Use as directed. Use to inject insulin up to 4 times daily. 400 Each 3 No current facility-administered medications for this visit. Current and discharge medications have been reconciled. Review of patient's allergies indicates: Allergen Reactions Lisinopril Edema face/lips/tongue OBJECTIVE: BP 108/64 | Pulse 55 | Temp 36.1 C (97 F) | Resp 16 | Wt 80.4 kg (177 lb 3 oz) | SpO2 95% | BMI31.01 kg/m | BSA 1.9 m Review Of Systems: Skin: negative Eyes: negative Ears/Nose/Throat: negative Respiratory: negative Cardiovascular: negative Gastrointestinal: negative Genitourinary: negative Musculoskeletal: Complains of pain in, back Neurologic: negative Psychiatric: negative Hematologic/Lymphatic/Immunologic: negative Endocrine: negative PHYSICAL EXAM: General: alert, healthy, and no distress Neck: supple, no adenopathy, no bruits, thyroid normal size, non-tender, without nodularity Heart: regular rate & rhythm, no murmur, and no gallops Lungs: chest symmetric with normal AP diameter, no chest deformities noted, no chest wall tenderness, lungs clear to auscultation Abdomen: abdomen soft, non-tender, normal bowel sounds, and no masses or organomegaly Back: back symmetric, no curvature, no costovertebral angle tenderness, Some limitation of flexion,Tender paralumbar muscles bilaterally Extremities: less than 2 second capillary refill, no joint deformities, effusion, or inflammation Skin: skin color, texture, turgor are normal, no rashes or significant lesions ASSESSMENT: Hospital discharge follow-up (Primary) - DISCH MED RECON CUR MED LIS - POPULATION HEALTH REFERRAL OP Type 2 diabetes mellitus with stage 3b chronic kidney disease, with long-term current use of insulin (HCC) - [employer]*Touch Verio w/Device Kit; Use up to 4 times a day E11.9 - OneTouch Verio In Vitro Strip (Glucose Blood); Use up to 4 times a day E11.9 - POPULATION HEALTH REFERRAL OP Diabetic ulcer of toe of right foot associated with type 2 diabetes mellitus, with fat layer exposed ([facility]) A1C uncontrolled Patient not reliably doing insulin at home Needs to improve his use of insulin and the most recent hold up seems to be lack of consistent living situation along with not having a working glucometer which we will refill today Type 2 diabetes mellitus with polyneuropathy (HCC) See above Chronic heart failure with preserved ejection fraction (HCC) Stable currently Paroxysmal atrial fibrillation (HCC) stable Hypertensive heart disease with chronic diastolic congestive heart failure (HCC) Stable currently Hypertensive heart and kidney disease with chronic diastolic congestive heart failure and stage 3b chronic kidney disease (HCC) Stable currently HTN, goal below 130/80 controlled Chronic kidney disease, stage 3b (HCC) Stable labs prior to f/u Encounter for long-term (current) insulin use (HCC) Type 2 diabetes mellitus with hemoglobin A1c goal of less than 8.0% ([facility])\\ as above Gastroesophageal reflux disease without esophagitis - Pantoprazole Sodium 40 MG Oral Tablet Delayed Release (Protonix); Take 1 Tablet by mouth in the morning. Lack of adequate food and safe drinking water Encouraged him to seek out the available solid long-term/living situation that he has available to him I spent a total of 40-54 minutes (exact time 41 mins) minutes on the date of service in preparation, delivery, and documentation of the care provided to Selvin Sebastian excluding any time spent in performance of separately billed services. James Maria DO documented in this encounter Plan of Treatment Upcoming Encounters Date Type Department Care Team (Late st Contact Info) Description 05/20/2024 5:00 PM EDT Office Visit Nephrology, [facility] [address] [place] [address] Jacek Calderón MD [address] [place], [place] [address] 06/10/2024 3:00 PM EDT Office Visit Pharmacy, [facility] [address] [place] [address] [facility] [address] [place] [address] 07/27/2024 3:00 PM EDT Office Visit Cardiology, [facility] [address] [place] [address] Shelley Russell PA-C [address] [place] [address] 10/25/2024 1:20 PM EST Office Visit Family Practice [facility] [address] [place] [address] James Maria DO [address] [place] [address] Scheduled Procedures Name Priority Associated Diagnoses Date/Ti me COLONOSCOPY FLEXIBLE PROXIMA L DIAGNOSTIC Recall Encounter for screening colonoscopy Scheduled Referrals Name Type Priority Associated Diagnoses Orde r Schedule POPULATION HEALTH REFERRAL OP Referral Within 3 days (urgent) Hospital discharge follow-up Type 2 diabetes mellitus with stage 3b chronic kidney disease, with long-term current use of insulin (HCC) Ordered: 05/10/2024 Health Maintenance Due Date Last Done Comments COVID-19 Vaccine ( season) 2023 11/17/2022, 02/25/2022, 03/24/2021, Additional history exists Diabetic Eye Exam 09/01/2023 09/01/2022, , 12/15/2019, Additional history exists Albumin/Creatinine Ratio 01/28/202401/27/2 023, 06/05/2022, 03/13/2020, Additional history exists Depression Screening 02/19/2024 02/18/2023 Influenza Vaccine (FLU shot) (#1) 2024 07/13/2023, 08/05/2022, 08/10/2021, Additional history exists GFR 08/09/2024 02/08/2024, 10/03, 08/26/2023, Additional history exists HbA1c 08/09/2024 02/08/2024, 05/02, 01/27/2023, Additional history exists CKD PHOS USE SMARTSET 28550 08/26/2024 08/26/2023 CKD HGB USE SMARTSET 27639 10/23/202410/23, 08/26/2023, 08/26/2023, Additional history exists Diabetic [...] Hospital discharge follow-up- Primary Other follow-up examination Type 2 diabetes mellitus with stage 3b chronic kidney disease, with long-term current use of insulin (HCC) Diabetic ulcer of toe of right foot associated with type 2 diabetes mellitus, with fat layer exposed (HCC) Type 2 diabetes mellitus with polyneuropathy (HCC) Type II or unspecified type diabetes mellitus with neurological manifestations, not stated as uncontrolled Chronic heart failure with preserved ejection fraction (HCC) Paroxysmal atrial fibrillation (HCC) Atrial fibrillation Hypertensive heart disease with chronic diastolic congestive heart failure (HCC) Hypertensive heart and kidney disease with chronic diastolic congestive heart failure and stage 3b chronic kidney disease (HCC) HTN, goal below 130/80 Unspecified essential hypertension Chronic kidney disease, stage 3b (HCC) Encounter for long-term (current) insulin use (HCC) Encounter for long-term (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 Type 2 diabetes mellitus with hemoglobin A1c goal of less than 8.0% (HCC) Gastroesophageal reflux disease without esophagitis Esophageal reflux Lack of adequate food and safe drinking water Effects of hunger documented in this encounter Advance Directives Healthcare Agents on File Name Relationship Healthcare Agent [facility] Communication Farhana Sebastian Spouse Health Care Agent Care Teams Barrel Reamer Relationship Specialty Start Date End Date James Maria DO [address] [place] [address] PCP - General Family Medicine 06/07/18 documented as of this encounter
--- OUTSIDE RECORDS SUMMARY | 2024-05-12 19:08 | External Medical Summary | Summary of Care ---
Author Name Unknown Organization [facility] Address [address] [place] [place] [address] Phone [phone] Care Team Providers Care Surveillance Manager Name Role Phone Yariel Mariavor Sophy Primary Care Provider Encounter Details Date Type Department Care Team (Late st Contact Info) Description 04/18/2024 Population Health External Data Unspecified Department Allergies Active Allergy Reactions Criticality Noted Date Comments Lisinopril Edema face/lips/tongue High 04/05/2018 documented as of this encounter (statuses as of 04/18/2024) Medications Medication Sig Dispensed Refills Start Date [...] 11 12/27/2021 Active FreeStyle Rose Marie 2 [place] Device Test blood sugars four times daily [...] hands 100 g 1 04/01/2023 Active Pen [place] 32G X 4 MM Use as directed. [...] 2 12/29/2023 Active FreeStyle Rose Marie 2 [place] DeviceIndications:Type 2 diabetes mellitus with hemoglobin A1c goal of less than 8.0% ([facility]),Type 2 diabetes mellitus with polyneuropathy (HCC),Diabetic ulcer of toe of right foot associated with type 2 diabetes mellitus, with fat layer exposed ([facility]) Test blood sugar 4 times daily 1 [...] by mouth in the morning. Active Pen [place] 32G X 4 MMIndications:Type 2 diabetes [...] 1 03/14/2024 Active FreeStyle Rose Marie 2 [place] Device Test blood sugar 4 times daily 1 Each 5 03/14/2024 Active FreeStyle Rose Marie 2 Sensor Use as directed. 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 01/09/2022 [...] as of this encounter (statuses as of 04/18/2024) Resolved Problems Problem Noted Date Diagnosed Date [...] as of this encounter (statuses as of 04/18/2024) Immunizations Name Administration Dates Next Due COVID-19 mRNA, LNP-s, No Pre serve, 2-Dose Series (Moderna) 03/24/2021,02/22/2021 COVID-19, LNP-s, No Preserve , Ministerio-sucrose, Ages 12+ (Pfizer) 02/25/2022 Covid-19, Mrna, Lnp-s, Pf, B ivalent, 30 Mcg, IM, 12 yrs and above ([email or web address]) 11/17/2022 Pneumococcal Conjugate Vacc, 13 Valent (Prevnar) [...] Care Team (Late st Contact Info) Description 04/18/2024 11:00 AM EDT Office Visit [facility] [address] [place] [address] James Maria, [address] [address] 05/20/2024 5:00 PM EDT Office Visit Nephrology, [facility] [address] [place] [address] Jacek Calderón MD [address] [place] [address] 06/10/2024 3:00 PM EDT Office Visit Pharmacy, [facility] [address] [address] [facility] [address] [place] [address] 07/27/2024 3:00 PM EDT Office Visit Cardiology, [facility] [address] [place] [address] Shelley Russell PA-C [address] [place] [address] 10/25/2024 1:20 PM EST Office Visit [facility] [address] [address] James Maria, [address] [place] [address] Scheduled Procedures Name Priority Associated Diagnoses Date/Ti [...] 08/09/2024 02/08/2024, 05/02, 01/27/2023, Additional history exists Diabetic Foot Exam 02/07/2025 [...] Sebastian Spouse Health Care Agent Care Teams Surveillance Manager Relationship Specialty Start Date End Date James Maria DO [address] [address] PCP - General Family Medicine 06/07/18 documented as of this encounter
--- OUTSIDE RECORDS SUMMARY | 2024-05-12 19:08 | External Medical Summary | Summary of Care ---
Author Name Unknown Organization [facility] Address [address] [place] [address] Phone [phone] Care Team Providers Care Options Advisor Name Role Phone James Maria Primary Care Provider Encounter Details Date Type Department Care Team (Late st Contact Info) Description 05/03/2024 2:30 PM EDT Home Visit [facility] [address] [place], [place] [phone] Shani Herrera, [facility] Cut Tobacco Bulker [address], [place] [phone] Allergies Active Allergy Reactions Criticality Noted Date [...] MLIndications:Type 2 diabetes mellitus with polyneuropathy ([facility]),Type 2 diabetes mellitus with hemoglobin A1c goal of less than 8.0% ([facility]) Use up to 4 x a day for insulin dosing E11.9 3 Each 1 09/05/2021 Active FreeStyle Rose Marie 2 Sensor Test blood sugars four times daily 2 Each 11 12/27/2021 Active FreeStyle Rose Marie 2 [place] Device Test blood sugars four times daily [...] hands 100 g 1 04/01/2023 Active Pen [place] 32G X 4 MM Use as directed. [...] 2 12/29/2023 Active FreeStyle Rose Marie 2 [place] DeviceIndications:Type 2 diabetes mellitus with hemoglobin A1c goal of less than 8.0% ([facility]),Type 2 diabetes mellitus with polyneuropathy ([facility]),Diabetic ulcer of toe of right foot associated with type 2 diabetes mellitus, with fat layer exposed ([facility]) Test blood sugar 4 times daily 1 [...] by mouth in the morning. Active Pen [place] 32G X 4 MMIndications:Type 2 diabetes mellitus [...] 03/14/2024 5 Active FreeStyle Rose Marie 2 [place] Device Test blood sugar 4 times daily [...] fat layer exposed 01/09/2022 Atherosclerosis of [place] co 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 angina pectoris 01/09/2022 [...] Progress Notes * Shani Herrera, Community [facility] Cut Tobacco Bulker - 05/03/2024 3:04 PM EDT Telemedicine visit: No [facility] Cut Tobacco Bulker (ARABELLA) documentation: CHW went to completed cold visit for the second time and went to address [address] and did not locate patient. CHW then called [facility] unit in [place] and spoke to intermodal owner operator truck driver, intermodal owner operator truck driver reported that he had just spoken to [employer] a few days ago about his van that was broken down there and that he needed to get it out of there. Diesel Pile Driver Operator saw [employer] then and he was moving stuff around and took the van. Diesel Pile Driver Operator reported that Selvin said he was doing better. Shani Herrera- Community Health Worker 1 Support Services/[facility] [employer] Health Plan [email or web address] documented in this encounter Plan of Treatment Upcoming Encounters Date Type Department Care Team (Late st Contact Info) Description 05/10/2024 2:20 PM EDT Office Visit Family Practice [facility] [address] [address] James Maria DO [address] [place] [address] 05/20/2024 5:00 PM EDT Office Visit Nephrology, [facility] [address] [place] [address] Jacek Calderón MD [address] [facility] [place] [address] 06/10/2024 3:00 PM EDT Office Visit Pharmacy, [facility] [address] [address] [facility] [address] [address] 07/27/2024 3:00 PM EDT Office Visit Cardiology, [facility] [address] [address] Shelley Russell PA-C [address] [place] [address] 10/25/2024 1:20 PM EST [facility] Visit [facility] [address] [place] [address] James Maria, [address] [place] [address] Scheduled Procedures Name Priority Associated Diagnoses Date/Ti [...] Additional history exists CKD PHOS USE SMARTSET 67210 08/26/2024 08/26/2023 CKD HGB USE SMARTSET 25554 10/23/202410/23, 08/26/2023, 08/26/2023, Additional history exists Diabetic [...] Sebastian Spouse Health Care Agent Care Teams Options Advisor Relationship Specialty Start Date End Date James Maria DO [address] [place] [address] PCP - General Family Medicine 06/07/18 documented as of this encounter
--- OUTSIDE RECORDS SUMMARY | 2024-05-12 20:19 | External Medical Summary | Summary of Care ---
Author Name Unknown Organization [facility] Address [address] [place] [address] Phone [phone] Care Team Providers Care Manager Education Name Role Phone James Maria DO Primary Care Provider Reason for Visit * Reason Onset Date Comments medication change 05/10/2024 Encounter Details Date Type Department Care Team (Late st Contact Info) Description 05/10/2024 Telephone Family Practice [facility] system [address] [place] [phone] James Maria DO [address] [place] [phone] medication change Allergies Active Allergy Reactions Criticality Noted Date Comments Lisinopril Edema face/lips/tongue High 04/05/2018 documented as of this encounter (statuses as of 05/11/2024) Medications Medication Sig Dispensed Refills Start Date End Date Status ONETOUCH ULTRA BLUE STRP USE TO CHECK GLUCOSE 4 TIMES DAILY 100 Strip 11/13/19 17 Active Sildenafil Citrate (VIAGRA) 50 [...] Apply to wounds on hands 100 g 04/01/20 23 Active Pen [place] 32G X 4 MM Use as directed. Use to inject insulin up to 4 times daily. 30 Each 05/06/20 23 Active Ammonium Lactate 12 % External Cream Apply to both feet once daily. 280 g 5 09/30/20 23 Active Xultophy 100-3.6 UNIT-MG/ML Subcutaneous Solution Pen-injector (Insulin Degludec-Liraglutid e) Inject 15 Units under the skin at bedtime. 15 mL 5 11/05/19 24 Active Tamsulosin HCl 0.4 MG Oral Capsule (Flomax)Indications :BPH with obstruction/lower urinary tract symptoms TAKE ONE CAPSULE BY MOUTH EVERY MORNING 100 Capsule 2 12/29/19 24 025 Active Apixaban 5 MG Oral Tablet (Eliquis)Indication s:PAF (paroxysmal atrial fibrillation) (HCC) Take 1 Tablet by mouth in the morning and 1 Tablet before bedtime. 180 Tablet 3 01/29/20 24 Active Finasteride 5 MG Oral Tablet (Proscar) Take 1 Tablet by mouth in the morning. Active Pen [place] 32G X 4 MMIndications:Type 2 diabetes mellitus with hemoglobin A1c goal of less than 8.0% ([facility]) Use as directed. Use to [...] morning. 90 Tablet 3 05/10/20 24 Active OneTouch Delica Lancets 33G Use as directed 4 times a day as needed for Hypoglycemia (low sugar) or Hyperglycemia (high sugar). 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 Adrianaould like delica lancet order, not the ultrasoft Order pending documented in this encounter Plan of Treatment Upcoming Encounters Date Type Department Care Team (Late st Contact Info) Description 05/20/2024 5:00 PM EDT Office Visit Nephrology, [facility] [address] [place] [address] Jacek Calderón MD [address] [place] [address] 06/10/2024 3:00 PM EDT Office Visit Pharmacy, Health system [address] [place] [address] [facility] [address] [place] [address] 07/27/2024 3:00 PM EDT Office Visit Cardiology, Health system [address] [place] [address] Shelley Russell PA-C [address] [place] [address] 10/25/2024 1:20 PM EST Office Visit Family Practice [facility] system [address] [place] [address] James Maria DO [address] [place] [address] Scheduled Procedures Name Priority Associated Diagnoses Date/Ti me COLONOSCOPY FLEXIBLE PROXIMA L DIAGNOSTIC Recall Encounter for screening colonoscopy Health Maintenance Due Date Last Done Comments COVID-19 Vaccine (2022- season) 2023 11/17/2022, 02/25/2022, 03/24/2021, Additional history exists Diabetic Eye Exam 09/01/2023 09/01/2022, , 12/15/2019, Additional history exists Albumin/Creatinine Ratio 01/28/2024 023, 06/05/2022, 03/13/2020, Additional history exists Depression Screening 02/19/2024 02/18/2023 Influenza Vaccine (FLU shot) (#1) 2024 07/13/2023, 08/05/2022, 08/10/2021, Additional history exists GFR 08/09/2024 02/08/2024, 10/03, 08/26/2023, Additional history exists HbA1c 08/09/2024 02/08/2024, 05/02, 01/27/2023, Additional history exists CKD PHOS USE SMARTSET 52956 08/26/2024 08/26/2023 CKD HGB USE SMARTSET 11759 10/23/202410/23, 08/26/2023, 08/26/2023, Additional history exists Diabetic [...] File Name Relationship Healthcare Agent [facility] Communication Farhana Sebastian Spouse Health Care Agent Care Teams Manager Education Relationship Specialty Start Date End Date James Maria DO [address] [address] PCP - General Family Medicine 06/07/18 documented as of this encounter
[2024-05-12] MEDS: HEPARIN SOD 5,000 UNIT/0.5 ML VIAL SQ SCH (21:37)
[2024-05-12] MEDS: DOXYCYCLINE HYCLATE 100 MG CAP PO SCH (21:50)
[2024-05-13] MEDS: MoRPHine SULFATE 4 MG/ML 1 ML CARP\\VIAL IV PRN (01:59)
[2024-05-13 08:51] LABS: Hematocrit (blood only) 35.6 % (42.0-52.0); Hemoglobin 11.5 g/dl (14.0-18.0); Mean Corpuscular Hemoglobin 28.3 pg (25.0-34.0); Mean Corpuscular Hgb Conc 32.3 g/dL (32.0-36.0); Mean Corpuscular Volume 87.7 fL (80.0-100.0); Mean Platelet Volume 9.9 fL (9.4-12.4); Platelet Count 295 K/uL (130-400); RDW Standard Deviation 41.1 fL (36.4-46.3); Red Blood Count 4.06 M/uL (4.70-6.10); White Blood Count 10.14 K/ul (4.8-10.8)
[2024-05-13 09:01] LABS: BUN Creatinine Ratio 19.7 (10-20); Calcium 8.2 mg/dl (8.6-10.3); Creatinine Clr Calc Pharmacy 44.4 ml/min; Est GFR (African American) 56.9 ml/min; Est GFR (Non-African American) 49.1 ml/min; Potassium 4.2 mmol/L (3.5-5.1)
[2024-05-13] MEDS: LIDOCAINE 5% 1 PATCH TD SCH (09:37)
[2024-05-13] MEDS: INSULIN ASPART PER UNIT CHARGE SC SCH (09:37)
--- NOTE | 2024-05-13 10:16 | Orthopedic Consultation ---
Date of Consultation May 13, 2024 Assessment & Plan (1) Closed T12 fracture: Patient has what they are calling acute T12 and L1 compression deformities. There is no significant kyphosis over the segments or gross instability. There is minimal if any retropulsion of the canal. We have ordered a TLSO that he is to wear when he is up and walking. He may be up and walk with physical therapy. Continue with pain control measures. The patient should not lift anything heavier than 5 to 7 pounds. He can follow-up with either his primary care physician versus our office approximately 2 to 4 weeks from discharge History of Present Illness Attending Physician: Bernardo Elizondo MD History of Present Illness Patient is a 78-year-old male presented to the emergency room on 05/12/2024. He was noted to have a hypertensive emergency had complaints of pain. CT scan was performed of his thoracic spine revealing T12 and L1 compression fractures. We are asked to see the patient for these fractures he was seen bedside in room 262. He was asleep upon entering the room. Cannot communicate either due to his inability to hear versus his unwillingness to cooperate. I was not able to get any meaningful history from him. Allergies Allergy/AdvReac Type Severity Reaction Status Date / Time lisinopril Allergy Severe Swelling Verified 05/03/24 13:13 of Face/Lips/Tongue Home Medications Medication Instructions Recorded Confirmed Type apixaban 5 mg tablet (Eliquis) 5 mg PO BID #60 tabs 08/18/23 05/11/24 Rx atorvastatin 40 mg tablet 40 mg PO QAM #30 tabs 08/18/23 05/11/24 Rx finasteride 5 mg tablet 5 mg PO DAILY #30 tabs 08/18/23 05/11/24 Rx insulin aspart U-100 100 unit/mL 5 unit (0.05 mL) subcut TIDM #15 mL 08/18/23 05/11/24 Rx (3 mL) subcutaneous pen (Novolog FlexPen U-100 Insulin aspart) pantoprazole 40 mg tablet,delayed 40 mg PO DAILY #30 tabs 08/18/23 05/11/24 Rx release tamsulosin 0.4 mg capsule 0.4 mg PO DAILY #30 caps 08/18/23 05/11/24 Rx insulin glargine 100 unit/mL (3 22 unit subcut HS 04/07/24 05/11/24 History mL) subcutaneous pen (Lantus Solostar U-100 Insulin) metoprolol tartrate 25 mg tablet 12.5 mg (1/2 x 25 mg) PO BID #60 04/11/24 05/11/24 Rx tabs aspirin 81 mg tablet,delayed 81 mg PO QAM #30 tabs 04/22/24 05/11/24 Rx release acetic acid 0.25 % irrigation 1 irrig irrigation DAILY 14 days 05/06/24 05/11/24 Rx solution #1,000 mL gentamicin 0.1 % topical ointment 1 applic topical DAILY 14 days #30 05/06/24 05/11/24 Rx grams Patient History Medical History Maggot infestation Catheter-associated urinary tract infection Gram-negative bacteremia Acute electrocardiogram changes Elevated troponin CESAR (acute kidney injury) Metabolic encephalopathy High anion gap metabolic acidosis DKA (diabetic ketoacidosis) Admitted to intensive care unit Acute hypokalemia Acute hyperglycemia Puncture wound of foot, right Right foot infection Bacteremia D-dimer, elevated Heart failure with preserved ejection fraction Hypokalemia HTN (hypertension) Moderate aortic stenosis Premature atrial complexes Paroxysmal atrial fibrillation Abnormal urinalysis DVT prophylaxis Volume overload Cellulitis DM type 2 (diabetes mellitus, type 2) Leukocytosis Bilateral edema of lower extremity Elevated brain natriuretic peptide (BNP) level Atrial fibrillation with rapid ventricular response Dyspnea Surgical History History of ear surgery age 19, mastoid H/O shoulder surgery S/P foot surgery, left Family History Brother Diabetes Social History Smoking Status: Former smoker Tobacco Type: Cigarettes Second Hand Exposure: No; Do You Dip or Chew Tobacco: No; Hx Alcohol Use: Yes Alcohol type: beer Alcohol Intake Frequency: 2-3 x/Week Hx Substance Use: No Preferred Language: Lithuanian Communication Ability: Impaired Communication Ability Comment: Deaf Visual Impairment: Limited Hearing Ability: Use of Hearing Aid Sterile Preparation Technician Required: No Beliefs That Will Affect Care: None marital status: Current Living Situation: Alone and Homeless Current Living Situation Comment: Living in his car current occupational status: retired How many Children do You have: 3 Feels Safe at Home: Yes Safety Concerns: Feels Safe At This Time during the past year weight has: remained stable Dental Care, Regularly: No Physical Activity Frequency: Does not Exercise Assistive Devices: Cane, Denture - Upper, Denture - Lower and Glasses Physical Exam Physical Exam: On exam he is arousable. He will not answer questions. There is no reaction to palpation or percussion over his thoracolumbar spine. He is able to move with both legs to gravity. He is able to sit on the side of the bed without difficulties. His visual wilson are grossly intact. Cardiovascular exam reveals no gross abnormalities Results & Data Vital Signs (Past 12 Hours) Vital Signs Temp Pulse Pulse Resp BP Pulse Ox O2 Del Method 05/13/24 07:28 66 05/13/24 07:27 36.6 C 51 L 18 156/84 H 99 Room Air 05/13/24 03:40 05/13/24 02:37 36.7 C 61 18 144/84 H 95 Room Air 05/13/24 01:34 Room Air 05/12/24 22:12 36.7 C 69 18 146/81 H 96 Room Air O2 Del Method 05/13/24 07:28 05/13/24 07:27 05/13/24 03:40 Room Air 05/13/24 02:37 05/13/24 01:34 05/12/24 22:[address] scan of the thoracic spine was reviewed. This reveals multilevel spondylosis with ankylosing at several levels. At T12 there is a 50% compression deformity with no retropulsion into the canal. L1 has a 30% compression deformity with no significant retropulsion of the canal.
--- NOTE | 2024-05-13 17:24 | Hospitalist Progress Note ---
Date of Service May 13, 2024 Assessment & Plan (1) Asymptomatic hypertensive urgency: Plan: Hypertensive urgency Likely situational secondary to pain Continue metoprolol Not on Lantus Monitor BP Thoracic spine fracture --Thoracic Spine CT: Acute T12 and L1 compression deformities without significant retropulsion or central canal stenosis. Pain control Fall precautions PT OT as able Appreciate orthopedics input TLSO brace with activity No lifting heavy weights greater than 5 to 7 pounds Continue PT OT Needs follow-up with orthopedics as outpatient Complicated UTI/CAUTI--POA Secondary to Chronic bladder outlet obstruction/BPH Indwelling Hanna catheter Blood culture negative to date Urine culture not contributory Continue IV meropenem Recurrent DM foot infection left Left lower extremity stage III pressure ulcer--POA Underlying PAD --Foot CT:Small left heel ulceration with skin thickening present. No soft tissue abscess. No osseous erosive abnormality to suggest osteomyelitis. Induration of the fat planes demonstrated which may represent cellulitis or chronic venous stasis. Wound culture, blood cultures pending Continue meropenem, doxycycline for now Wound care consulted Foot MRI pending Hyperglycemia Uncontrolled DM II Last HbA1c 14 Medication noncompliance Continue insulin while hospitalized Monitor BGs Chronic diastolic heart failure Last EF 60-65%, TTE 2023 A-fib severe Continue home medications Monitor volume status resume Eliquis PAD Hyperlipidemia Continue Aspirin, statin CKD III Baseline creatinine ~ 1.7 Monitor renal function Severe hearing loss hoarding behavior as per records/hx of obsessional thoughts/acts as per records Functional disability Past tobacco abuse. DVT Px: Eliquis CODE STATUS DNR/DNI Admission and Anticipated Discharge Date Admission Date: May 12, 2024 Subjective Patient is seen and examined at bedside Poor historian secondary to significant hearing impairment Back pain slowly improving No new complaints Denies any dysuria, hematuria, chest pain, dyspnea Ankle MRI pending Review of Systems Review of Systems: All systems reviewed & are unremarkable except as noted in Subjective Physical Exam Physical Exam: Physical Exam: Vitals signs as noted above General Appearance:Moderately built and nourished, no apparent distress, chronic ill appearing Head: normocephalic, Atraumatic Eyes: normal inspection, EOMI Neck: supple, Trachea midline Respiratory/Chest: Normal breath sounds, CTA, No accessory muscle use Cardiovascular: S1, S2, + murmur Abdomen/GI:Soft, Non tender, Bowel sounds present Extremities/Musculoskeletal:normal inspection, B/L LE edema, +Mild erythema, Left Heel wound Neurologic/Psych:AAOX3, grossly no focal neurological deficits, +hearing impairment Skin: normal color, warm Results & Data Results & Data Vital Signs (Past 12 Hours) Vital Signs Temp Pulse Pulse Resp BP Pulse Ox O2 Del Method 05/13/24 15:38 36.7 C 52 L 18 149/86 H 96 Room Air 05/13/24 15:17 66 05/13/24 11:27 36.7 C 61 18 149/69 H 94 Room Air 05/13/24 07:28 66 05/13/24 07:27 36.6 C 51 L 18 156/84 H 99 Room Air Laboratory Results Short CBC 05/13/24 Range/Units 08:01 WBC 10.14 (4.8-10.8) K/ul Hgb 11.5 L (14.0-18.0) g/dl Hct 35.6 L (42.0-52.0) % Plt Count 295 (130-400) K/uL BMP 05/13/24 08:01 Sodium 136 Potassium 4.2 Chloride 101 Carbon Dioxide 28 BUN 27 H Creatinine 1.37 Glucose 122 H Calcium 8.2 L
[2024-05-13] MEDS: METOPROLOL TARTRATE 25 MG TAB PO SCH (20:39)
[2024-05-13] MEDS: APIXABAN 5 MG TABLET PO SCH (20:39)
[2024-05-13] MEDS: MAGNESIUM SULFATE / D5W 1 GM/100 ML BAG IV ONE (20:40)
--- NOTE | 2024-05-14 00:32 | Magnetic Resonance Report ---
Exam(s): MRI LEFT ANKLE Without Contrast EXAM: MR Left Lower Extremity Without Intravenous Contrast, Ankle CLINICAL HISTORY: Reason for exam: Left heel Ulcer, R/O Osteomyelitis. TECHNIQUE: CT 05/12/2024 COMPARISON: No relevant prior studies available. FINDINGS: Ulcer along the skin surface of the heel which appears confined to the dermal layer and superficial soft tissues. There is no underlying drainage tract or fluid collection. No soft tissue gas. No marrow signal changes. No fracture. No joint effusion. Scattered degenerative changes most pronounced within the mid foot. Beaking of the talus. Intramuscular edema most frequently related to diabetic neuropathy. Thickening of the plantar fascia up to 6 mm consistent with plantar fasciitis. Infiltration of the fat within the sinus tarsi the. Likely split tear within the peroneus brevis tendon. Tendinosis within the distal aspect of the posterior tibial tendon. Fluid within the sheath at the myotendinous junction of the flexor pollicis longus. Normal appearance of the Achilles tendon. No acute ligamentous abnormality. IMPRESSION: 1. No evidence of osteomyelitis. 2. Ulcer on the heel appears confined to the skin surface. No fluid collection or drainage tract. 3. Additional chronic findings as above. Electronically signed by: Bob Aragon MD 05/14/24 00:31 AM
[2024-05-14] MEDS: DOCUSATE SODIUM/SENNA 50/8.6MG TAB PO STA ×2 (06:11→22:17)
[2024-05-14] MEDS: POLYETHYLENE (MIRALAX) 17 GM PACK PO STA (06:11)
[2024-05-14 08:15] LABS: Calcium 8.5 mg/dl (8.6-10.3); Creatinine Clr Calc Pharmacy 39.3 ml/min; Est GFR (Non-African American) 42.3 ml/min; Magnesium 2.1 mg/dl (1.7-2.4); Potassium 4.2 mmol/L (3.5-5.1)
--- NOTE | 2024-05-14 15:51 | Hospitalist Progress Note ---
Date of Service May 14, 2024 Assessment & Plan (1) Asymptomatic hypertensive urgency: Plan: Hypertensive urgency Likely situational secondary to pain Continue metoprolol Also on tamsulosin BP better Thoracic spine fracture --Thoracic Spine CT: Acute T12 and L1 compression deformities without significant retropulsion or central canal stenosis. Pain control Fall precautions PT OT as able Appreciate orthopedics input TLSO brace with activity No lifting heavy weights greater than 5 to 7 pounds Continue PT OT Needs follow-up with orthopedics as outpatient To discharge facility once accepted to rehab Complicated UTI/CAUTI--POA Secondary to Chronic bladder outlet obstruction/BPH Indwelling Hanna catheter Blood culture negative to date Urine culture not contributory Continue IV meropenem Day #3 Recurrent DM foot infection left Left lower extremity stage III pressure ulcer--POA Underlying PAD --Foot CT:Small left heel ulceration with skin thickening present. No soft tissue abscess. No osseous erosive abnormality to suggest osteomyelitis. Induration of the fat planes demonstrated which may represent cellulitis or chronic venous stasis. --Ankle MRI:No evidence of osteomyelitis. Ulcer on the heel appears confined to the skin surface. No fluid collection or drainage tract. -Blood culture negative Wound culture grew pansensitive Pseudomonas Continue meropenem, doxycycline for now Wound care consulted Plan to transition to p.o. antibiotics on discharge Will likely need prolonged antibiotic course Hyperglycemia Uncontrolled DM II Last HbA1c 14 Medication noncompliance Continue insulin while hospitalized Monitor BGs Chronic diastolic heart failure Last EF 60-65%, TTE 2023 A-fib severe Continue home medications Monitor volume status On Eliquis for anticoagulation PAD Hyperlipidemia Continue Aspirin, statin CKD III Baseline creatinine ~ 1.7 Monitor renal function Severe hearing loss hoarding behavior as per records/hx of obsessional thoughts/acts as per records Functional disability Past tobacco abuse. DVT Px: Eliquis CODE STATUS DNR/DNI Disposition Rehab when accepted Admission and Anticipated Discharge Date Admission Date: May 12, 2024 Subjective Patient is seen and examined at bedside Poor historian secondary to significant hearing impairment Ambulating with PT this morning No new complaints Back pain is controlled Review of Systems Review of Systems: All systems reviewed & are unremarkable except as noted in Subjective Physical Exam Physical Exam: Physical Exam: Vitals signs as noted above General Appearance:Moderately built and nourished, no apparent distress, chronic ill appearing Head: normocephalic, Atraumatic Eyes: normal inspection, EOMI Neck: supple, Trachea midline Respiratory/Chest: Normal breath sounds, CTA, No accessory muscle use Cardiovascular: S1, S2, + murmur Abdomen/GI:Soft, Non tender, Bowel sounds present Extremities/Musculoskeletal:normal inspection, B/L LE edema, +Mild erythema, Left Heel wound Neurologic/Psych:AAOX3, grossly no focal neurological deficits, +hearing impairment Skin: normal color, warm Results & Data Results & Data Vital Signs (Past 12 Hours) Vital Signs Temp Pulse Pulse Resp BP Pulse Ox O2 Del Method 05/14/24 15:18 64 05/14/24 14:56 36.5 C 63 18 118/71 97 Room Air 05/14/24 11:09 36.5 C 67 18 101/56 L 94 Room Air 05/14/24 07:35 76 05/14/24 07:12 36.5 C 63 18 118/75 94 Room Air Laboratory Results [facility] 05/14/24 07:01 Sodium 133 L Potassium 4.2 Chloride 98 Carbon Dioxide 29 BUN 31 H Creatinine 1.55 H Glucose 167 H Calcium 8.5 L
[2024-05-14] MEDS: POLYETHYLENE (MIRALAX) 17 GM PACK PO PRN (18:30)
[2024-05-14] MEDS: LACTULOSE SYRUP 30 GM/45 ML UDP PO STA (22:17)
[2024-05-15 05:30] LABS: Hemoglobin 11.3 g/dl (14.0-18.0); Mean Corpuscular Hemoglobin 28.5 pg (25.0-34.0); Mean Corpuscular Hgb Conc 32.3 g/dL (32.0-36.0); Mean Corpuscular Volume 88.2 fL (80.0-100.0); Mean Platelet Volume 9.9 fL (9.4-12.4); Platelet Count 316 K/uL (130-400); RDW Coefficient of Variation 13.1 % (11.5-14.5); RDW Standard Deviation 41.9 fL (36.4-46.3); Red Blood Count 3.97 M/uL (4.70-6.10); White Blood Count 8.59 K/ul (4.8-10.8)
[2024-05-15 05:44] LABS: Calcium 8.9 mg/dl (8.6-10.3); Creatinine Clr Calc Pharmacy 40.6 ml/min; Potassium 4.6 mmol/L (3.5-5.1)
[2024-05-15] MEDS: DOCUSATE SODIUM/SENNA 50/8.6MG TAB PO SCH (08:40)
[2024-05-15] MEDS ORDERED: DOCUSATE SODIUM/SENNA 50/8.6MG TAB PO SCH (09:00)
[2024-05-15] MEDS ORDERED: MoRPHine SULFATE 2 MG/ML CARP IV PRN (09:37)
--- NOTE | 2024-05-15 15:18 | Hospitalist Progress Note ---
Date of Service May 15, 2024 Assessment & Plan (1) Asymptomatic hypertensive urgency: Plan: Hypertensive urgency Likely situational secondary to pain Continue metoprolol Also on tamsulosin Blood pressure stable Monitor Thoracic spine fracture --Thoracic Spine CT: Acute T12 and L1 compression deformities without significant retropulsion or central canal stenosis. Pain control Fall precautions PT OT as able Appreciate orthopedics input TLSO brace with activity No lifting heavy weights greater than 5 to 7 pounds Continue PT OT Needs follow-up with orthopedics as outpatient Waiting for rehab placement Case management to help with discharge planning Complicated UTI/CAUTI--POA Secondary to Chronic bladder outlet obstruction/BPH Indwelling Hanna catheter Blood culture negative to date Urine culture not contributory Continue IV meropenem Day #4 Recurrent DM foot infection left Left lower extremity stage III pressure ulcer--POA Underlying PAD --Foot CT:Small left heel ulceration with skin thickening present. No soft tissue abscess. No osseous erosive abnormality to suggest osteomyelitis. Induration of the fat planes demonstrated which may represent cellulitis or chronic venous stasis. --Ankle MRI:No evidence of osteomyelitis. Ulcer on the heel appears confined to the skin surface. No fluid collection or drainage tract. -Blood culture negative Wound culture grew pansensitive Pseudomonas Continue meropenem, doxycycline for now Wound care consulted Plan to transition to p.o. antibiotics on discharge Will likely need prolonged antibiotic course Hyperglycemia Uncontrolled DM II Last HbA1c 14 Medication noncompliance Continue insulin while hospitalized Monitor BGs Chronic diastolic heart failure Last EF 60-65%, TTE 2023 A-fib severe Continue home medications Monitor volume status On Eliquis for anticoagulation PAD Hyperlipidemia Continue Aspirin, statin CKD III Baseline creatinine ~ 1.7 Monitor renal function Severe hearing loss hoarding behavior as per records/hx of obsessional thoughts/acts as per records Functional disability Past tobacco abuse. DVT Px: Eliquis CODE STATUS DNR/DNI Disposition Rehab when accepted Admission and Anticipated Discharge Date Admission Date: May 12, 2024 Subjective Patient is seen and examined at bedside Poor historian secondary to significant hearing impairment Back pain is controlled No new complaints today Waiting for rehab placement Review of Systems Review of Systems: All systems reviewed & are unremarkable except as noted in Subjective Physical Exam Physical Exam: Physical Exam: Vitals signs as noted above General Appearance:Moderately built and nourished, no apparent distress, chronic ill appearing Head: normocephalic, Atraumatic Eyes: normal inspection, EOMI Neck: supple, Trachea midline Respiratory/Chest: Normal breath sounds, CTA, No accessory muscle use Cardiovascular: S1, S2, + murmur Abdomen/GI:Soft, Non tender, Bowel sounds present Extremities/Musculoskeletal:normal inspection, B/L LE edema, +Mild erythema, Left Heel wound Neurologic/Psych:AAOX3, grossly no focal neurological deficits, +hearing impairment Skin: normal color, warm Results & Data Results & Data Vital Signs (Past 12 Hours) Vital Signs Temp Pulse Pulse Resp BP Pulse Ox O2 Del Method 05/15/24 14:49 64 05/15/24 11:20 36.3 C L 63 16 113/70 94 Room Air 05/15/24 07:46 36.7 C 68 16 102/66 96 Room Air 05/15/24 07:36 61 05/15/24 04:00 05/15/24 03:32 36.5 C 64 18 120/72 97 Room Air O2 Del Method 05/15/24 14:49 05/15/24 11:20 05/15/24 07:46 05/15/24 07:36 05/15/24 04:00 Room Air 05/15/24 03:32 Laboratory Results Short CBC 05/15/24 Range/Units 04:16 WBC 8.59 (4.8-10.8) K/ul Hgb 11.3 L (14.0-18.0) g/dl Hct 35.0 L (42.0-52.0) % Plt Count 316 (130-400) K/uL BMP 05/15/24 04:16 Sodium 134 L Potassium 4.6 Chloride 99 Carbon Dioxide 29 BUN 36 H Creatinine 1.50 H Glucose 115 H Calcium 8.9
--- NOTE | 2024-05-16 14:03 | Hospitalist Progress Note ---
Date of Service May 16, 2024 Assessment & Plan (1) Asymptomatic hypertensive urgency: Plan: Hypertensive urgency Likely situational secondary to pain Continue metoprolol Also on tamsulosin Blood pressure stable Monitor Thoracic spine fracture --Thoracic Spine CT: Acute T12 and L1 compression deformities without significant retropulsion or central canal stenosis. Pain control Fall precautions PT OT as able Appreciate orthopedics input TLSO brace with activity No lifting heavy weights greater than 5 to 7 pounds Continue PT OT Needs follow-up with orthopedics as outpatient Plan to discharge to rehab facility when accepted Complicated UTI/CAUTI--POA Secondary to Chronic bladder outlet obstruction/BPH Indwelling Hanna catheter Blood culture negative to date Urine culture not contributory Continue IV meropenem Day #5 Recurrent DM foot infection left Left lower extremity stage III pressure ulcer--POA Underlying PAD --Foot CT:Small left heel ulceration with skin thickening present. No soft tissue abscess. No osseous erosive abnormality to suggest osteomyelitis. Induration of the fat planes demonstrated which may represent cellulitis or chronic venous stasis. --Ankle MRI:No evidence of osteomyelitis. Ulcer on the heel appears confined to the skin surface. No fluid collection or drainage tract. -Blood culture negative Wound culture grew pansensitive Pseudomonas Continue meropenem, doxycycline for now Wound care consulted Plan to transition to p.o. antibiotics on discharge Will likely need prolonged antibiotic course Will need follow-up with wound clinic/podiatry on discharge Likely discharge in 1 to 2 days to rehab facility Hyperglycemia Uncontrolled DM II Last HbA1c 14 Medication noncompliance Continue insulin while hospitalized Monitor BGs Chronic diastolic heart failure Last EF 60-65%, TTE 2023 A-fib severe Continue home medications Monitor volume status On Eliquis for anticoagulation PAD Hyperlipidemia Continue Aspirin, statin CKD III Baseline creatinine ~ 1.7 Monitor renal function Severe hearing loss hoarding behavior as per records/hx of obsessional thoughts/acts as per records Functional disability Past tobacco abuse. DVT Px: Eliquis CODE STATUS DNR/DNI Disposition Rehab Admission and Anticipated Discharge Date Admission Date: May 12, 2024 Subjective Patient is seen and examined at bedside Poor historian secondary to significant hearing impairment Had physical therapy evaluation earlier today Back pain seems to be controlled Denies any significant leg pain Denies any chest pain, dyspnea, nausea, vomiting, abdominal pain Waiting for rehab placement Review of Systems Review of Systems: All systems reviewed & are unremarkable except as noted in Subjective Physical Exam Physical Exam: Physical Exam: Vitals signs as noted above General Appearance:Moderately built and nourished, no apparent distress, chronic ill appearing Head: normocephalic, Atraumatic Eyes: normal inspection, EOMI Neck: supple, Trachea midline Respiratory/Chest: Normal breath sounds, CTA, No accessory muscle use Cardiovascular: S1, S2, + murmur Abdomen/GI:Soft, Non tender, Bowel sounds present Extremities/Musculoskeletal:normal inspection, B/L LE edema, +Mild erythema, Left Heel wound Neurologic/Psych:AAOX3, grossly no focal neurological deficits, +hearing impairment Skin: normal color, warm Results & Data Results & Data Vital Signs (Past 12 Hours) Vital Signs Temp Pulse Pulse Resp BP Pulse Ox O2 Del Method 05/16/24 11:18 36.5 C 54 L 16 123/70 96 Room Air 05/16/24 10:24 58 L 05/16/24 07:21 36.6 C 59 L 16 128/69 95 Room Air 05/16/24 03:34 37 C 64 18 122/69 96 Room Air 05/16/24 03:01 O2 Del Method 05/16/24 11:18 05/16/24 10:24 05/16/24 07:21 05/16/24 03:34 05/16/24 03:01 Room Air
[2024-05-17 04:32] LABS: Calcium 8.7 mg/dl (8.6-10.3); Creatinine Clr Calc Pharmacy 40.7 ml/min; Est GFR (African American) 51.8 ml/min; Est GFR (Non-African American) 44.7 ml/min; Potassium 4.1 mmol/L (3.5-5.1)
--- NOTE | 2024-05-17 09:42 | Hospitalist Progress Note ---
Date of Service May 17, 2024 Assessment & Plan (1) Closed T12 fracture: (2) Asymptomatic hypertensive urgency: Plan: Hypertensive urgency Likely situational secondary to pain Continue metoprolol Also on tamsulosin Blood pressure stable on current medications Monitor Thoracic spine fracture --Thoracic Spine CT: Acute T12 and L1 compression deformities without significant retropulsion or central canal stenosis. Pain control Fall precautions PT OT as able Appreciate orthopedics input TLSO brace with activity No lifting heavy weights greater than 5 to 7 pounds Continue PT OT Needs follow-up with orthopedics as outpatient Plan to discharge to rehab facility today Complicated UTI/CAUTI--POA Secondary to Chronic bladder outlet obstruction/BPH Indwelling Hanna catheter Blood culture negative to date Urine culture not contributory Continue IV meropenem >> transition to p.o. antibiotics on discharge Recurrent DM foot infection left Left lower extremity stage III pressure ulcer--POA Underlying PAD --Foot CT:Small left heel ulceration with skin thickening present. No soft tissue abscess. No osseous erosive abnormality to suggest osteomyelitis. Induration of the fat planes demonstrated which may represent cellulitis or chronic venous stasis. --Ankle MRI:No evidence of osteomyelitis. Ulcer on the heel appears confined to the skin surface. No fluid collection or drainage tract. -Blood culture negative Wound culture grew pansensitive Pseudomonas Continue meropenem, doxycycline for now Wound care consulted Plan to transition to p.o. antibiotics on discharge Will likely need prolonged antibiotic course Advised to follow-up with wound clinic/podiatry on discharge Hyperglycemia Uncontrolled DM II Last HbA1c 14 Medication noncompliance Continue insulin while hospitalized Monitor BGs Chronic diastolic heart failure Last EF 60-65%, TTE 2023 A-fib severe Continue home medications Monitor volume status On Eliquis for anticoagulation PAD Hyperlipidemia Continue Aspirin, statin CKD III Baseline creatinine ~ 1.7 Monitor renal function Severe hearing loss hoarding behavior as per records/hx of obsessional thoughts/acts as per records Functional disability Past tobacco abuse. DVT Px: Eliquis CODE STATUS DNR/DNI Disposition Rehab Admission and Anticipated Discharge Date Admission Date: May 12, 2024 Subjective Patient is seen and examined at bedside Poor historian secondary to significant hearing impairment States having back pain today No new complaints Denies any chest pain, dyspnea, nausea, vomiting, abdominal pain Plan to be discharged to rehab facility today Review of Systems Review of Systems: All systems reviewed & are unremarkable except as noted in Subjective Physical Exam Physical Exam: Physical Exam: Vitals signs as noted above General Appearance:Moderately built and nourished, no apparent distress, chronic ill appearing Head: normocephalic, Atraumatic Eyes: normal inspection, EOMI Neck: supple, Trachea midline Respiratory/Chest: Normal breath sounds, CTA, No accessory muscle use Cardiovascular: S1, S2, + murmur Abdomen/GI:Soft, Non tender, Bowel sounds present Extremities/Musculoskeletal:normal inspection, B/L LE edema, +Mild erythema, Left Heel wound Neurologic/Psych:AAOX3, grossly no focal neurological deficits, +hearing impairment Skin: normal color, warm Results & Data Results & Data Vital Signs (Past 12 Hours) Vital Signs Temp Pulse Pulse Resp BP Pulse Ox O2 Del Method 05/17/24 08:09 36.7 C 67 16 137/73 95 Room Air 05/17/24 04:00 05/17/24 01:57 36.5 C 59 L 18 125/67 96 Room Air 05/16/24 23:59 Room Air 05/16/24 22:49 36.5 C 65 16 112/69 95 Room Air 05/16/24 22:00 64 O2 Del Method 05/17/24 08:09 05/17/24 04:00 Room Air 05/17/24 01:57 05/16/24 23:59 05/16/24 22:49 05/16/24 22:00
--- NOTE | 2024-05-17 10:02 | Discharge Summary ---
Date of Service May 17, 2024 Admission HPI Per Admitting Provider History obtained from patient, family, and records. History from patient secondary to severe hearing impairment. Medical history significant for chronic diastolic heart failure (EF 60-65%, TTE 2023), A-fib on Eliquis, severe , PAD, hypertension, hyperlipidemia, recurrent UTIs secondary to chronic indwelling Hanna catheter, BPH, DM2 insulin requiring, chronic anemia (baseline hemoglobin of 11-12), severe hearing loss, history chronic LE venous ulcers, chronic right heel wound secondary to puncture injury, hoarding behavior as per records/hx of obsessional thoughts/acts as per records, past tobacco abuse. Recent confinement last month Hanna catheter malfunction and MSSA left foot ulcer status post debridement/antibiotic Rx. Patient discharged from hospital. Has been homeless for some time now. Former and daughter unable to accommodate patient at apartment which only allows for 2 people. Patient resides in a van/storage shed and has limited access to water/food/medication. PCP had serious concerns about patient's living situation on follow-up visit 2 days ago. Patient noted mid back pain after falling and losing balance last week. No head trauma, no chest pain, no SOB, no LOC. Patient with chills. Leg and foot wounds okay as per patient. Patient consulted ER for evaluation. Purulent urine in Hanna catheter. Purulent drainage from chronic left heel wound. Highest SBP of 180s documented at the ER. Meropenem administered at the ER. 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 Admission Exam Per Admitting Provider GENERAL: comfortable, hard of hearing, no respiratory distress SKIN: Pallor, warm HEENT: pale palpebral conjunctivae, no ptosis, dry buccal mucosa NECK : Supple, no tenderness CHEST : CTA, no tenderness HEART : RRR, systolic murmur BACK : Mid back tenderness ABDOMEN: Some distention, minimal hypogastric tenderness EXTREMITIES : Dressing over left heel wound, no LE tenderness, no other conspicuous deformities noted NEUROLOGIC : Coherent, no facial asymmetry, marked hearing impairment, gait and stance not assessed Principal Diagnosis Thoracic spine fracture Complicated UTI/CAUTI Hypertensive urgency Recurrent left diabetic foot infection Uncontrolled diabetes mellitus Discharge Data Allergies Allergy/AdvReac Type Severity Reaction Status Date / Time lisinopril Allergy Severe Swelling Verified 05/03/24 13:13 of Face/Lips/Tongue Consultations 05/12/24 02:59 Consult Orthopedic Spine Surgery Routine Procedures Performed Laboratory Results WBC 8.59 K/ul (4.8-10.8) 05/15/24 04:16 RBC 3.97 M/uL (4.70-6.10) L 05/15/24 04:16 Hgb 11.3 g/dl (14.0-18.0) L 05/15/24 04:16 Hct 35.0 % (42.0-52.0) L 05/15/24 04:16 MCV 88.2 fL (80.0-100.0) 05/15/24 04:16 MCH 28.5 pg (25.0-34.0) 05/15/24 04:16 MCHC 32.3 g/dL (32.0-36.0) 05/15/24 04:16 RDW Std Deviation 41.9 fL (36.4-46.3) 05/15/24 04:16 RDW Coeff of Scott 13.1 % (11.5-14.5) 05/15/24 04:16 Plt Count 316 K/uL (130-400) 05/15/24 04:16 MPV 9.9 fL (9.4-12.4) 05/15/24 04:16 Immature Gran % (Auto) 0.4 % 05/12/24 06:33 Neut % (Auto) 62.4 % 05/12/24 06:33 Lymph % (Auto) 25.4 % 05/12/24 06:33 [place] % (Auto) 7.9 % 05/12/24 06:33 Eos % (Auto) 3.4 % 05/12/24 06:33 Baso % (Auto) 0.5 % 05/12/24 06:33 Neut # (Auto) 6.32 K/uL (1.40-6.50) 05/12/24 06:33 Lymph # (Auto) 2.57 K/uL (1.20-3.40) 05/12/24 06:33 [place] # (Auto) 0.80 K/uL (0.11-0.59) H 05/12/24 06:33 Eos # (Auto) 0.34 K/uL (0.00-0.50) 05/12/24 06:33 Baso # (Auto) 0.05 K/uL (0.00-0.20) 05/12/24 06:33 Immature Gran # (Auto) 0.04 K/uL (0.01-0.20) 05/12/24 06:33 ESR 59 mm/hr (0-20) H 05/11/24 Unknown Sodium 133 mmol/L (136-145) L 05/17/24 03:58 Potassium 4.1 mmol/L (3.5-5.1) 05/17/24 03:58 Chloride 101 mmol/L (98-107) 05/17/24 03:58 Carbon Dioxide 28 mmol/L (21-32) 05/17/24 03:58 Anion Gap 4 (3-11) 05/17/24 03:58 BUN 37 mg/dl (6-23) H 05/17/24 03:58 Creatinine 1.48 mg/dl (0.6-1.4) H 05/17/24 03:58 Est Cr Clr Drug Dosing 40.7 ml/min 05/17/24 03:58 Est GFR ( Amer) 51.8 ml/min 05/17/24 03:58 Est GFR (Non-Af Amer) 44.7 ml/min 05/17/24 03:58 BUN/Creatinine Ratio 25.0 (10-20) H 05/17/24 03:58 Glucose 91 mg/dl (70-99(Fasting)) 05/17/24 03:58 POC Glucose 107 mg/dl (70-99) H 05/17/24 07:55 Lactate 1.2 mmol/L (0.4-2.0) 05/12/24 01:07 Calcium 8.7 mg/dl (8.6-10.3) 05/17/24 03:58 Magnesium 2.1 mg/dl (1.7-2.4) 05/14/24 07:01 Total Bilirubin 0.6 mg/dl (0.2-1.0) 05/11/24 23:07 AST 26 U/L (13-39) 05/11/24 23:07 ALT 16 U/L (7-52) 05/11/24 23:07 Alkaline Phosphatase 135 U/L (34-104) H 05/11/24 23:07 C-Reactive Protein 1.55 mg/dl (0-0.5) H 05/11/24 23:07 Total Protein 7.7 gm/dl (6.0-8.3) 05/11/24 23:07 Albumin 3.5 gm/dl (3.4-5.0) 05/11/24 23:07 Globulin 4.2 gm/dl (2.5-4.0) H 05/11/24 23:07 Albumin/Globulin Ratio 0.8 (0.9-2) L 05/11/24 23:07 Procalcitonin 0.32 ng/ml (0-0.5) 05/11/24 Unknown Urine Color Yellow 05/12/24 00:00 Urine Appearance Clear (Clear) 05/12/24 00:00 Urine pH 6.5 (4.5-7.5) 05/12/24 00:00 Ur Specific [place] 1.021 (1.000-1.030) 05/12/24 00:00 Urine Protein 1+ (Negative) H 05/12/24 00:00 Urine Glucose (UA) 3+ (Negative) H 05/12/24 00:00 Urine Ketones Negative (Negative) 05/12/24 00:00 Urine Blood 2+ (Negative) H 05/12/24 00:00 Urine Nitrite Negative (Negative) 05/12/24 00:00 Urine Bilirubin Negative (Negative) 05/12/24 00:00 Urine Urobilinogen Negative (Negative) 05/12/24 00:00 Ur Leukocyte Esterase 2+ (Negative) H 05/12/24 00:00 Urine WBC (Auto) >50 /hpf (0-5) H 05/12/24 00:00 Urine RBC (Auto) >20 /hpf (0-2) H 05/12/24 00:00 U Hyaline Cast (Auto) 6-10 /lpf (0-2) H 05/12/24 00:00 U Epithel Cells (Auto) 0-2 /hpf (0-2) 05/12/24 00:00 Urine Bacteria (Auto) None Seen (None Seen) 05/12/24 00:00 Urine Yeast Present (None Prsent) A 05/12/24 00:[address] 05/11/24 23:25 Exam(s): CT CHEST Without Contrast EXAM: CT Chest Without Intravenous Contrast CLINICAL HISTORY: Reason for exam: lower posterior rib pain, fall. TECHNIQUE: Axial computed tomography images of the chest without intravenous contrast. CTDI is 35 mGy and DLP is 1098 mGy-cm. Automated exposure control was utilized for the study. A dose lowering technique was utilized adhering to the principles of ALARA. COMPARISON: No relevant prior studies available. FINDINGS: Lungs: Unremarkable. No mass. No consolidation. Pleural space: Unremarkable. No pneumothorax. No significant effusion. Heart: Cardiomegaly. No significant pericardial effusion. No significant coronary artery calcifications. Mediastinum: Small hiatal hernia. Bones/joints: Acute fracture involving the inferior endplate of T12. Degenerative changes of the spine. No dislocation. Soft tissues: Unremarkable. Vasculature: Atherosclerotic changes of the aorta. No thoracic aortic aneurysm. Lymph nodes: Unremarkable. No enlarged lymph nodes. IMPRESSION: Acute fracture involving the inferior endplate of T12. Electronically signed by: Shawn Trotter MD 05/12/24 01:43 AM Abdomen/Pelvis CT 05/11/24 23:27 Exam(s): CT ABDOMEN + PELVIS Without Contrast EXAM: CT Abdomen and Pelvis Without Intravenous Contrast CLINICAL HISTORY: Reason for exam: Traum, fall. TECHNIQUE: Axial computed tomography images of the abdomen and pelvis without intravenous contrast. CTDI is 35 mGy and DLP is 1098 mGy-cm. Automated exposure control was utilized for the study. A dose lowering technique was utilized adhering to the principles of ALARA. COMPARISON: No relevant prior studies available. FINDINGS: Lung bases: Unremarkable. No mass. No consolidation. ABDOMEN: Liver: Unremarkable. Gallbladder and bile ducts: Unremarkable. No calcified stones. No ductal dilation. Pancreas: Unremarkable. No ductal dilation. Spleen: Unremarkable. No splenomegaly. Adrenals: Unremarkable. No mass. Kidneys and ureters: Unremarkable. No obstructing stones. No hydronephrosis. Stomach and bowel: Diverticulosis, without acute diverticulitis. No small bowel obstruction. No free intraperitoneal air. PELVIS: Appendix: No findings to suggest acute appendicitis. Bladder: Hanna catheter terminates in a decompressed urinary bladder which demonstrate mild wall thickening. Correlate for UTI. No stones. Reproductive: Unremarkable as visualized. ABDOMEN and PELVIS: Intraperitoneal space: Unremarkable. No free air. No significant fluid collection. Bones/joints: Nondisplaced fracture involving the infra and plate of T12. Degenerative changes of the spine. No dislocation. Soft tissues: Moderate fat-containing RIGHT inguinal hernia. Vasculature: Atherosclerotic changes of the aorta. No abdominal aortic aneurysm. Lymph nodes: Unremarkable. No enlarged lymph nodes. IMPRESSION: 1. Hanna catheter terminates in a decompressed urinary bladder which demonstrate mild wall thickening. Correlate for UTI. 2. Nondisplaced fracture involving the infra and plate of T12. 3. Diverticulosis, without acute diverticulitis. No small bowel obstruction. No free intraperitoneal air. Electronically signed by: Shawn Trotter MD 05/12/24 01:[address] 05/11/24 23:27 Exam(s): CT HEAD Without Contrast EXAM: CT Head Without Intravenous Contrast CLINICAL HISTORY: Reason for exam: Trauma. TECHNIQUE: Axial computed tomography images of the head/brain without intravenous contrast. CTDI is 35 mGy and DLP is 1098 mGy-cm. Automated exposure control was utilized for the study. A dose lowering technique was utilized adhering to the principles of ALARA. COMPARISON: No relevant prior studies available. FINDINGS: No acute intracranial hemorrhage. No midline shift or mass effect. The territorial franco-white matter differentiation is maintained throughout. Age-related cerebral volume loss. Periventricular and subcortical white matter hypoattenuation, consistent with chronic microangiopathy. The visualized orbits appear grossly unremarkable. The calvarium is intact. The visualized paranasal sinuses and mastoid air cells are grossly clear. IMPRESSION: No acute intracranial hemorrhage, midline shift, or mass effect. Electronically signed by: Shawn Trotter MD 05/12/24 01:[address] 05/11/24 23:27 Exam(s): CT L SPINE EXAM: CT Lumbar Spine Without Intravenous Contrast CLINICAL HISTORY: Reason for exam: Trauma. TECHNIQUE: Axial computed tomography images of the lumbar spine without intravenous contrast. CTDI is 35 mGy and DLP is 1098 mGy-cm. Automated exposure control was utilized for the study. A dose lowering technique was utilized adhering to the principles of ALARA. COMPARISON: No relevant prior studies available. FINDINGS: The vertebral body heights are maintained. The lumbar lordosis is preserved. There is no spondylolisthesis. The posterior elements are maintained, without evidence of acute fracture. The pedicles are intact. Multilevel lumbar spondylosis and degenerative disc disease. IMPRESSION: No acute fracture or subluxation of the lumbar spine. Note, there is a fracture involving the infra endplate of T12 on the concomitant CT abdomen pelvis. Electronically signed by: Shawn Trotter MD 05/12/24 01:39 AM Calcaneus X-Ray 05/11/24 23:52 LEFT CALCANEUS 2 VIEWS CLINICAL HISTORY: Diabetic heel ulcer. FINDINGS: AP and lateral views of the left calcaneus are correlated with radiograph of left foot dated 06/05/2022. The skeletal structures are osteopenic. There is no radiographic evidence of calcaneal fracture. No bony erosion or periostitis is seen. There are large dorsal and plantar heel spurs. An os trigonum is incidentally noted. There is degenerative spurring along the dorsal aspect of the talus. Pes planus is observed. Soft tissue edema is noted in the heel. No soft tissue gas or radiodense foreign body is identified. IMPRESSION: 1. Soft tissue edema with no acute bony abnormality identified. 2. Large heel spurs. Electronically signed by: Chris Earl M.D. 05/12/2024 7:22 AM Chest X-Ray 05/11/24 23:52 XR chest 1V portable HISTORY: 78 years-old Male fall acute chest trauma status post fall COMPARISON: 07/31/2023 TECHNIQUE: AP view of the chest FINDINGS: Cardiac silhouette is enlarged. Mild upper thoracic levoscoliosis. No pneumothor ax, pleural effusion or pulmonary edema. No airspace consolidation typical for pneumonia. IMPRESSION: Cardiomegaly without acute process. ACT 112: Negative or not required by law. The above report was generated using voice recognition software. It may contain grammatical, syntax or spelling errors. Electronically signed by: Fabio Simmons M.D. 05/12/2024 7:[address] 05/12/24 02:55 Exam(s): CT LEFT FOOT Without Contrast EXAM: CT Left Lower Extremity Without Intravenous Contrast, Foot CLINICAL HISTORY: Reason for exam: worsening L heel wound drainage. TECHNIQUE: Axial computed tomography images of the left foot without intravenous contrast. CTDI is 24.91 mGy and DLP is 465.61 mGy-cm. Automated exposure control was utilized for the study. A dose lowering technique was utilized adhering to the principles of ALARA. COMPARISON: No relevant prior studies available. FINDINGS: Bones/joints: 2 screws in the first metatarsal head, presumably from hallux valgus correction. Orthopedic screws in the second through fourth proximal phalanges, presumably hammertoe correction surgery. No fracture or dislocation. No osseous erosive abnormality to suggest osteomyelitis. Soft tissues: Induration of the fat planes demonstrated which may represent cellulitis or chronic venous stasis. Small left heel ulceration with skin thickening present. No soft tissue abscess. IMPRESSION: 1. Small left heel ulceration with skin thickening present. No soft tissue abscess. 2. No osseous erosive abnormality to suggest osteomyelitis. 3. Induration of the fat planes demonstrated which may represent cellulitis or chronic venous stasis. Electronically signed by: Lui Johnson MD 05/12/24 05:[address] 05/12/24 14:03 CT thoracic spine wo con HISTORY: 78 years-old Male assess T12 fracture acute midback pain status post trauma COMPARISON: CT lumbar spine of same day, CT abdomen and pelvis 07/24/2023 TECHNIQUE: Multiple axial CT images of the thoracic spine were obtained without the use of IV contrast. A dose lowering technique was used consistent with the principals of ALARA. FINDINGS: There is an acute T12 compression deformity with approximately 50% vertebral body height loss. No significant retropulsion. Additionally, there is an acute fracture involving the anterior and superior endplates of L1 demonstrating approximately 30% vertebral body height loss without retropulsion. Mild upper thoracic levoscoliosis. Mild superior endplate compression at T3 without retropulsion is likely chronic. No additional acute fracture or subluxation. Mild cortical buckling of the medial right 12th rib. No acute displaced rib fractures identified. Trace pleural effusions. Cardiomegaly. Bilateral perinephric stranding. No pneumothorax. IMPRESSION: 1. Acute T12 and L1 compression deformities without significant retropulsion or central canal stenosis. 2. Trace pleural effusions. ACT 112: Negative or not required by law. The above report was generated using voice recognition software. It may contain grammatical, syntax or spelling errors. Electronically signed by: Fabio Simmons M.D. 05/12/2024 4:07 PM Ankle MRI 05/13/24 00:12 Exam(s): MRI LEFT ANKLE Without Contrast EXAM: MR Left Lower Extremity Without Intravenous Contrast, Ankle CLINICAL HISTORY: Reason for exam: Left heel Ulcer, R/O Osteomyelitis. TECHNIQUE: CT 05/12/2024 COMPARISON: No relevant prior studies available. FINDINGS: Ulcer along the skin surface of the heel which appears confined to the dermal layer and superficial soft tissues. There is no underlying drainage tract or fluid collection. No soft tissue gas. No marrow signal changes. No fracture. No joint effusion. Scattered degenerative changes most pronounced within the mid foot. Beaking of the talus. Intramuscular edema most frequently related to diabetic neuropathy. Thickening of the plantar fascia up to 6 mm consistent with plantar fasciitis. Infiltration of the fat within the sinus tarsi the. Likely split tear within the peroneus brevis tendon. Tendinosis within the distal aspect of the posterior tibial tendon. Fluid within the sheath at the myotendinous junction of the flexor pollicis longus. Normal appearance of the Achilles tendon. No acute ligamentous abnormality. IMPRESSION: 1. No evidence of osteomyelitis. 2. Ulcer on the heel appears confined to the skin surface. No fluid collection or drainage tract. 3. Additional chronic findings as above. Electronically signed by: Bob Aragon MD 05/14/24 00:31 AM Ordered Studies 05/11/24 23:25 CT chest diagnostic wo con Stat 05/11/24 23:27 CT abd pelvis wo con Stat CT head/brain wo con Stat CT lumbar spine wo con Stat 05/12/24 02:55 CT foot LT wo con Stat 05/12/24 14:03 CT thoracic spine wo con Routine 05/13/24 00:12 MR ankle LT wo con Routine Hospital Course (1) Asymptomatic hypertensive urgency: Hypertensive urgency Likely situational secondary to pain Continue metoprolol Also on tamsulosin Blood pressure stable on current medications Monitor Thoracic spine fracture --Thoracic Spine CT: Acute T12 and L1 compression deformities without significant retropulsion or central canal stenosis. Pain control Fall precautions PT OT as able Appreciate orthopedics input TLSO brace with activity No lifting heavy weights greater than 5 to 7 pounds Continue PT OT Needs follow-up with orthopedics as outpatient Plan to discharge to rehab facility today Complicated UTI/CAUTI--POA Secondary to Chronic bladder outlet obstruction/BPH Indwelling Hanna catheter Blood culture negative to date Urine culture not contributory Continue IV meropenem >> transition to p.o. antibiotics on discharge Recurrent DM foot infection left Left lower extremity stage III pressure ulcer--POA Underlying PAD --Foot CT:Small left heel ulceration with skin thickening present. No soft tissue abscess. No osseous erosive abnormality to suggest osteomyelitis. Induration of the fat planes demonstrated which may represent cellulitis or chronic venous stasis. --Ankle MRI:No evidence of osteomyelitis. Ulcer on the heel appears confined to the skin surface. No fluid collection or drainage tract. -Blood culture negative Wound culture grew pansensitive Pseudomonas Continue meropenem, doxycycline for now Wound care consulted Plan to transition to p.o. antibiotics on discharge Will likely need prolonged antibiotic course Advised to follow-up with wound clinic/podiatry on discharge Hyperglycemia Uncontrolled DM II Last HbA1c 14 Medication noncompliance Continue insulin while hospitalized Monitor BGs Chronic diastolic heart failure Last EF 60-65%, TTE 2023 A-fib severe Continue home medications Monitor volume status On Eliquis for anticoagulation PAD Hyperlipidemia Continue Aspirin, statin CKD III Baseline creatinine ~ 1.7 Monitor renal function Severe hearing loss hoarding behavior as per records/hx of obsessional thoughts/acts as per records Functional disability Past tobacco abuse. DVT Px: Eliquis CODE STATUS DNR/DNI Disposition Rehab Total Time Total Time Spent Total Time Spent (In Minutes): 56 minutes Discharge Plan Discharge Items Patient Disposition: Transfer Half-Way Fac Reason For Visit: COMP UTI, HTN URG Discharge Diagnosis: Thoracic spine fracture Complicated UTI/CAUTI Hypertensive urgency Recurrent left diabetic foot infection Uncontrolled diabetes mellitus Activity: Per Instructions section Exercise/Sports: Gradually increase as tolerated Non-emergency contact: Primary Care Provider and Specialist Call non-emergency contact if: you have any medication questions, your symptoms worsen, your pain is concerning for you, you have a fever, your wound has increased redness, your wound has increased drainage and your wound pain has increased Follow-up/Referrals: James Maria DO [Primary Care Provider] - Diet: Carb Consistent or DM2 and Heart Healthy Addtl Attending Provider Instructions: Follow-up with your primary care physician Dr. James Maria in 1 week upon discharge from rehab facility Follow-up with your public health professor/wound clinic in 1 week Follow-up with your orthopedic surgeon Dr. Rutledge in 2 to 4 weeks -- Continue wound care of the left foot wound infection at rehab facility --Complete the antibiotic course (ciprofloxacin, doxycycline )as prescribed. Seek immediate medical attention if your symptoms reoccur or worsen Please take all medications as instructed on discharge list below. Please call if you have any questions or problems. You can reach a [facility] hospitalist on duty at [facility] 24 hours a day by calling [phone] Pending Studies at Discharge: No Stand-Alone Forms: My [facility] Skilled Items Patient informed of condition?: Yes DNR: Yes Discharge Level of Care: Skilled Communicable Disease: No Discharge Prognosis: Stable Lines: None Urinary Catheter: Yes Medications and DC Order Prescriptions: New doxycycline hyclate 100 mg Capsule 100 mg PO BID Qty: 10 0RF oxycodone 5 mg Tablet 5 mg PO QID PRN (Reason: pain) Qty: 10 0RF metoprolol tartrate 25 mg Tablet 25 mg PO BID Qty: 60 0RF Advanced Probiotic 625 mg (10 billion cell) Capsule 1 cap PO DAILY Qty: 10 0RF polyethylene glycol 3350 [Miralax] 17 gram Powder In Packet 17 g PO DAILY PRN (Reason: constipation) Qty: 14 0RF sennosides-docusate sodium [Senokot-S] 8.6-50 mg Tablet 1 tab PO BID PRN (Reason: constipation) Qty: 30 0RF ciprofloxacin HCl 500 mg tablet 500 mg PO BID Qty: 10 0RF Continued gentamicin 0.1 % ointment 1 applic topical DAILY 14 Days Qty: 30 0RF Rx Instructions: Apply to left heel daily with dressing changes. acetic acid 0.25 % solution 1 irrig irrigation DAILY 14 Days Qty: 1000 0RF Rx Instructions: Soak gauze with acetic acid and apply to wound of left heel daily for 15-20 minutes. pantoprazole 40 mg Tablet,Delayed Release (Dr/Ec) 40 mg PO DAILY Qty: 30 0RF atorvastatin 40 mg tablet 40 mg PO QAM Qty: 30 0RF tamsulosin 0.4 mg capsule 0.4 mg PO DAILY Qty: 30 11RF finasteride 5 mg tablet 5 mg PO DAILY Qty: 30 11RF Eliquis 5 mg tablet 5 mg PO BID Qty: 60 0RF insulin aspart U-100 [Novolog FlexPen U-100 Insulin] 100 unit/mL (3 mL) Insulin Pen 5 unit SUBCUT TIDM Qty: 15 0RF insulin glargine [Lantus Solostar U-100 Insulin] 100 unit/mL (3 mL) insulin pen 22 unit SUBCUT HS aspirin 81 mg Tablet,Delayed Release (Dr/Ec) 81 mg PO QAM Qty: 30 0RF Discontinued metoprolol tartrate 25 mg tablet 12.5 mg PO BID Qty: 60 0RF Discharge Orders: Discharge Order (Routine); Ordered 05/17/24 Ordered By: Bernardo Elizondo Admission Data Admit Date/Time: 05/12/24 02:57 Attending Provider: Bernarod Elizondo Admit Provider: Gerald Hagan Primary Care Provider: James Maria Other Providers: Kelechi Rutledge; [facility]; [place]; [facility], Other Interventions: Discharge Summary Assessment (RN) Last Done: 05/17/24 10:03
== END 2024-05-17 10:50 | DRG 698 ==
LOC: ED 21:17 → EDINP 05-12 02:57 → 2W 05-12 03:57

== ENCOUNTER 2024-09-06 11:42 | Inpatient (IN) ==
--- NOTE | 2024-09-06 12:19 | Emergency Department Note ---
Impression & Plan Closed compression fracture of thoracic vertebra ADMIT ED Provider Note HPI: History obtained from patient. The patient is a 79-year-old gentleman who presents the emergency department with a chief complaint of upper back pain after a fall several weeks ago. Patient has history of hypertension, type 2 diabetes, peripheral neuropathy, paroxysmal atrial fibrillation currently on Eliquis, he also has a history of partial homelessness. Patient reportedly is living in a van outside of his 's apartment complex according to his who is at the bedside. She states he is having some difficulty taking care of himself. Patient was complaining of pain in his upper back over the past 2 weeks that seem to be worsening today and therefore his brought him to the ER by private vehicle to be assessed. also states that the patient recently was "supposed to be placed in a facility". On arrival here to the ED the patient is hemodynamically stable, he otherwise appears to be in no acute distress. ROS: - Per HPI Differential Diagnosis: Acute coronary syndrome, rib fractures, pneumothorax, hemothorax, compression fractures of the thoracic spine, amongst other potential pathologies. *Outpatient medications and allergy history reviewed. 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 His lab work shows a leukocytosis of 12.59, hemoglobin is stable at 12.5, platelet count is normal, CMP shows a mild hyponatremia 130, creatinine is at baseline at 1.6, glucose is markedly elevated at 491 without any anion gap elevation. Serum sodium bicarbonate level is 29, urinalysis shows possible UTI, discussed with the admitting team and will defer further management to the hospitalist service at this time. Will send for culture. CT imaging of the thoracic spine was obtained and shows a compression fracture at T6 that appears acute, there are other subacute appearing fractures noted without any retropulsion. I suspect this is the source of the patient's pain. Given the patient's homelessness, ambulatory dysfunction, comorbidities, and pain, I do feel he should be placed to an inpatient facility. He was also given IV insulin here for hyperglycemia, I did discuss the patient's presentation with case management. They state he will require admission prior to placement. Case was therefore discussed with the on-call admitting provider for the [facility] hospitalist service, Juana Toussaint NP, and the patient was placed for admission in stable condition to the service of Dr. Qureshi. Consultants/Discussions held with other healthcare providers: -Hospitalist, Dr. Qureshi Disposition discussion held by myself with: -Patient and Diagnosis: 1. Back pain, acute 2. T6 compression fracture, acute 3. Hyperglycemia without DKA, acute 4. Hyponatremia, acute on chronic Disposition: Admission Abdullahi Mai DO Emergency Medicine Past Med/Surg History Problem List (Updated 09/06/24 @ 16:33 by Abdullahi Mai DO) Closed compression fracture of thoracic vertebra (Acute) Lymphedema (Chronic) Fall (Acute) Open wound of finger (Acute) Diabetic peripheral neuropathy associated with type 2 diabetes mellitus HTN (hypertension) Diabetic ulcer of right foot (Acute) Charcot foot due to diabetes mellitus Closed T12 fracture (Acute) Diabetic ulcer of left heel (Acute) Hyponatremia (Acute) Otitis externa of left ear Chronic indwelling Hanna catheter Otitis externa Ambulatory dysfunction Severe aortic stenosis Chronic heart failure with preserved ejection fraction (HFpEF) Ear drum perforation Hydronephrosis, bilateral Severe hearing loss Open wound of abdomen (Acute) Homeless (Acute) BPH (benign prostatic hyperplasia) Edema of both legs Hypertension Paroxysmal atrial fibrillation Diabetes mellitus, type II (Chronic) Dyslipidemia Medical History (Updated 09/06/24 @ 16:33 by Abdullahi Mai DO) Asymptomatic hypertensive urgency Bilateral lower leg cellulitis Blister of finger Maggot infestation Catheter-associated urinary tract infection CESAR (acute kidney injury) Surgical History History of ear surgery age 19, mastoid H/O shoulder surgery S/P foot surgery, left Family History Brother Diabetes Social History Smoking Status: Former smoker Tobacco Type: Cigarettes Second Hand Exposure: No; Do You Dip or Chew Tobacco: No; Hx Alcohol Use: Yes Alcohol type: beer Alcohol Intake Frequency: 2-3 x/Week Hx Substance Use: No Preferred Language: Armenian Communication Ability: Effective Communication Ability Comment: Deaf Visual Impairment: Limited Hearing Ability: Use of Hearing Aid Cost Engineer Required: No Beliefs That Will Affect Care: None marital status: Current Living Situation: Alone and Homeless Current Living Situation Comment: Living in his car current occupational status: retired How many Children do You have: 3 Feels Safe at Home: Yes during the past year weight has: remained stable Dental Care, Regularly: No Physical Activity Frequency: Does not Exercise Assistive Devices: Cane and Walker Allergies Allergies Allergy/AdvReac Type Severity Reaction Status Date / Time lisinopril Allergy Severe Swelling Verified 08/29/24 10:16 of Face/Lips/Tongue Home Meds Home Medications Medication Instructions Recorded Confirmed insulin glargine 100 unit/mL (3 22 unit subcut HS 04/07/24 09/06/24 mL) subcutaneous pen (Lantus Solostar U-100 Insulin) furosemide 20 mg tablet 20 mg PO QAM 09/06/24 09/06/24 Previous Rx's Medication Instructions Recorded apixaban 5 mg tablet (Eliquis) 5 mg PO BID #60 tabs 08/18/23 atorvastatin 40 mg tablet 40 mg PO QAM #30 tabs 08/18/23 finasteride 5 mg tablet 5 mg PO DAILY #30 tabs 08/18/23 insulin aspart U-100 100 unit/mL 5 unit (0.05 mL) subcut TIDM #15 mL 08/18/23 (3 mL) subcutaneous pen (Novolog FlexPen U-100 Insulin aspart) pantoprazole 40 mg tablet,delayed 40 mg PO DAILY #30 tabs 08/18/23 release tamsulosin 0.4 mg capsule 0.4 mg PO DAILY #30 caps 08/18/23 aspirin 81 mg tablet,delayed 81 mg PO QAM #30 tabs 04/22/24 release L.acidop,casei,lactis,rham-B.lact,anthony 1 cap PO DAILY #10 caps 05/17/24 625 mg (10 billion cell) capsule (Advanced Probiotic) metoprolol tartrate 25 mg tablet 25 mg PO BID #60 tabs 05/17/24 oxycodone 5 mg tablet 5 mg PO QID PRN pain #10 tabs 05/17/24 polyethylene glycol 3350 17 gram 17 g PO DAILY PRN constipation #14 05/17/24 oral powder packet (Miralax) ea sennosides 8.6 mg-docusate sodium 1 tab PO BID PRN constipation #30 05/17/24 50 mg tablet (Senokot-S) tabs Results & Data (ED) Vital Signs Vital Signs - 24 hr 09/06/24 11:47 09/06/24 12:08 09/06/24 12:09 Temperature 36.7 C Temperature Source Temporal Artery Scan Pulse Rate 84 86 Pulse Rate [Apical] Pulse Rhythm Regular Irregular Pulse Rhythm [Apical] Pulse Strength Normal Pulse Strength [Apical] Respiratory Rate 20 16 Respiratory Effort / Characteristics Respiratory Depth Respiratory Pattern Blood Pressure 122/71 Blood Pressure [Left Arm] Blood Pressure Mean 88 Blood Pressure Mean [Left Arm] Blood Pressure Position Sitting Blood Pressure Position [Left Arm] Pulse Oximetry 95 97 95 Oxygen Delivery Method Room Air Room Air Room Air Sepsis Recent Fever Within 48 Hours No Sepsis New/Unexplained Change in Mental Status N/A Sepsis Action Taken by Nursing No Action Required 09/06/24 12:37 09/06/24 14:00 09/06/24 15:50 Temperature Temperature Source Pulse Rate 83 Pulse Rate [Apical] 79 77 Pulse Rhythm Pulse Rhythm [Apical] Regular Pulse Strength Pulse Strength [Apical] Normal Respiratory Rate 16 16 Respiratory Effort / Characteristics Non-Labored Spontaneous Respiratory Depth Normal Respiratory Pattern Regular Blood Pressure Blood Pressure [Left Arm] 140/75 136/74 Blood Pressure Mean Blood Pressure Mean [Left Arm] 96 94 Blood Pressure Position Blood Pressure Position [Left Arm] Lying Pulse Oximetry 90 95 Oxygen Delivery Method Room Air Sepsis Recent Fever Within 48 Hours Sepsis New/Unexplained Change in Mental Status Sepsis Action Taken by Nursing Laboratory Data 09/06/24 12:25 09/06/24 12:25 Lab Results 09/06/24 09/06/24 Range/Units 12:25 12:46 WBC 12.59 H (4.8-10.8) K/ul RBC 4.45 L (4.70-6.10) M/uL Hgb 12.5 L (14.0-18.0) g/dl Hct 38.1 L (42.0-52.0) % MCV 85.6 (80.0-100.0) fL MCH 28.1 (25.0-34.0) pg MCHC 32.8 (32.0-36.0) g/dL RDW Std Deviation 40.6 (36.4-46.3) fL RDW Coeff of Scott 13.0 (11.5-14.5) % Plt Count 309 (130-400) K/uL MPV 10.6 (9.4-12.4) fL Immature Gran % (Auto) 0.4 % Neut % (Auto) 76.5 % Lymph % (Auto) 13.4 % Atlantic % (Auto) 8.7 % Eos % (Auto) 0.7 % Baso % (Auto) 0.3 % Neut # (Auto) 9.62 H (1.40-6.50) K/uL Lymph # (Auto) 1.69 (1.20-3.40) K/uL Atlantic # (Auto) 1.10 H (0.11-0.59) K/uL Eos # (Auto) 0.09 (0.00-0.50) K/uL Baso # (Auto) 0.04 (0.00-0.20) K/uL Immature Gran # (Auto) 0.05 (0.01-0.20) K/uL Sodium 130 L (136-145) mmol/L Potassium 4.7 (3.5-5.1) mmol/L Chloride 92 L (98-107) mmol/L Carbon Dioxide 29 (21-32) mmol/L Anion Gap 9 (3-11) BUN 25 H (6-23) mg/dl Creatinine 1.60 H (0.6-1.4) mg/dl Est Cr Clr Drug Dosing 37.8 ml/min eGFR 43.56 BUN/Creatinine Ratio 15.6 (10-20) Glucose 491 H* (70-99(Fasting)) mg/dl Calcium 9.0 (8.6-10.3) mg/dl Total Bilirubin 1.0 (0.2-1.0) mg/dl AST 11 L (13-39) U/L ALT 5 L (7-52) U/L Alkaline Phosphatase 137 H (34-104) U/L Troponin I High Sens 13.5 (0-20) pg/ml Total Protein 8.0 (6.0-8.3) gm/dl Albumin 3.4 (3.4-5.0) gm/dl Globulin 4.6 H (2.5-4.0) gm/dl Albumin/Globulin Ratio 0.7 L (0.9-2) Lipase 63 (11-82) U/L Urine Color Yellow Urine Appearance Turbid A (Clear) Urine pH 7.0 (4.5-7.5) Ur Specific Mcroberts 1.024 (1.000-1.030) Urine Protein 1+ H (Negative) Urine Glucose (UA) 3+ H (Negative) Urine Ketones Negative (Negative) Urine Blood 1+ H (Negative) Urine Nitrite Positive A (Negative) Urine Bilirubin Negative (Negative) Urine Urobilinogen Negative (Negative) Ur Leukocyte Esterase 2+ H (Negative) Urine WBC (Auto) >50 H (0-5) /hpf Urine RBC (Auto) 11-20 H (0-2) /hpf U Hyaline Cast (Auto) 0-2 (0-2) /lpf U Epithel Cells (Auto) 0-2 (0-2) /hpf Urine Bacteria (Auto) 4+ H (None Seen) Urine Yeast Present A (None Prsent) Administered Medications Discontinued Medications Insulin Human Regular (Novolin-R Insulin Per Unit Charge) 5 units IV NOW STA Stop: 09/06/24 14:04 Last Admin: 09/06/24 14:15 Dose: 5 units Documented By: SNS Co-signed By: MILAGRO Morphine Sulfate (Morphine Sulfate 4 Mg/Ml 1 Ml Carp\\Vial) 4 mg IV NOW STA Stop: 09/06/24 12:17 Last Admin: 11/05/24 12:24 Dose: 4 mg Documented By: EDMOND Ondansetron HCl (Ondansetron Inj 2 Mg/Ml 2 Ml Vial) 4 mg IV NOW STA Stop: 09/06/24 12:17 Last Admin: 09/06/24 12:24 Dose: 4 mg Documented By: EDMOND Imaging Data Radiologist's Impression: Chest X-Ray 09/06/24 12:03 XR chest 1V portable HISTORY: 79 years-old Male Chest pain, nonspecific COMPARISON: 05/12/2024 TECHNIQUE: AP view the chest FINDINGS: Cardiac silhouette is mildly enlarged. No pneumothorax, pleural effusion or overt pulmonary edema. Mild left basilar airspace opacities are new from prior. Bones appear grossly intact. IMPRESSION: 1. Mild cardiomegaly without pulmonary edema. 2. Mild left basilar opacities favor atelectasis. ACT 112: Negative or not required by law. The above report was generated using voice recognition software. It may contain grammatical, syntax or spelling errors. Electronically signed by: Fabio Simmons M.D. 09/06/2024 2:[address] 09/06/24 12:16 CT thoracic spine wo con HISTORY: 79 years-old Male upper back pain s/p fall 2 week ago acute mid back pain status post fall COMPARISON: 05/12/2024 TECHNIQUE: Multiple axial CT images of the thoracic spine were obtained without IV contrast. A dose lowering technique was used consistent with the principals of ALARA. FINDINGS: Subacute T12 compression deformity demonstrates progressive vertebral body height loss, now of approximately 50% with 3 mm retropulsion. Subacute L1 compression deformity also demonstrates progressive vertebral body height loss, now of greater than 50%. There is a mild acute-appearing T6 compression deformity with approximately 30% vertebral body height loss and no retropulsion. Unchanged mild superior endplate compression at T3. Mild upper thoracic levoscoliosis. No additional acute fracture or subluxation. No acute displaced rib fractures identified. Cardiomegaly. Bilateral perinephric stranding. Small hiatal hernia. No pneumothorax. IMPRESSION: 1. Mild acute T6 compression deformity without retropulsion. 2. Subacute T12 and L1 compression deformities demonstrate progressively worsened vertebral body height loss compared to the 05/12/2024 study. ACT 112: Negative or not required by law. The above report was generated using voice recognition software. It may contain grammatical, syntax or spelling errors. Electronically signed by: Fabio Simmons M.D. 09/06/2024 1:43 PM Discharge Plan Visit Data Chief Complaint: Chest Pain Stated Complaint: CHEST PAIN, BACK PAIN ED Provider: Abdullahi Mai Discharge Problem: Closed compression fracture of thoracic vertebra Forms Stand Alone Forms: [facility] Prescriptions Prescriptions: No Action pantoprazole 40 mg Tablet,Delayed Release (Dr/Ec) 40 mg PO DAILY Qty: 30 0RF atorvastatin 40 mg tablet 40 mg PO QAM Qty: 30 0RF tamsulosin 0.4 mg capsule 0.4 mg PO DAILY Qty: 30 11RF finasteride 5 mg tablet 5 mg PO DAILY Qty: 30 11RF Eliquis 5 mg tablet 5 mg PO BID Qty: 60 0RF insulin aspart U-100 [Novolog FlexPen U-100 Insulin] 100 unit/mL (3 mL) Insulin Pen 5 unit SUBCUT TIDM Qty: 15 0RF insulin glargine [Lantus Solostar U-100 Insulin] 100 unit/mL (3 mL) insulin pen 22 unit SUBCUT HS aspirin 81 mg Tablet,Delayed Release (Dr/Ec) 81 mg PO QAM Qty: 30 0RF oxycodone 5 mg Tablet 5 mg PO QID PRN (Reason: pain) Qty: 10 0RF metoprolol tartrate 25 mg Tablet 25 mg PO BID Qty: 60 0RF Advanced Probiotic 625 mg (10 billion cell) Capsule 1 cap PO DAILY Qty: 10 0RF polyethylene glycol 3350 [Miralax] 17 gram Powder In Packet 17 g PO DAILY PRN (Reason: constipation) Qty: 14 0RF sennosides-docusate sodium [Senokot-S] 8.6-50 mg Tablet 1 tab PO BID PRN (Reason: constipation) Qty: 30 0RF furosemide 20 mg tablet 20 mg PO QAM Referrals Referrals: James Maria DO [Primary Care Provider] - Discharge Problem: Closed compression fracture of thoracic vertebra Qualifiers: Encounter type: initial encounter Qualified Code(s): S22.000A - Wedge compression fracture of unspecified thoracic vertebra, initial encounter for closed fracture
[2024-09-06] MEDS: ONDANSETRON INJ 2 MG/ML 2 ML VIAL IV STA (12:24)
[2024-09-06] MEDS: MoRPHine SULFATE 4 MG/ML 1 ML CARP\\VIAL IV STA (12:24)
[2024-09-06 13:10] LABS: Albumin Globulin Ratio 0.7 (0.9-2); Albumin Level 3.4 gm/dl (3.4-5.0); BUN Creatinine Ratio 15.6 (10-20); Creatinine Clr Calc Pharmacy 37.8 ml/min; Globulin 4.6 gm/dl (2.5-4.0); Potassium 4.7 mmol/L (3.5-5.1)
[2024-09-06 13:13] LABS: Basophils # (auto) 0.04 K/uL (0.00-0.20); Basophils % (auto) 0.3 %; Eosinophils # (auto) 0.09 K/uL (0.00-0.50); Eosinophils % (auto) 0.7 %; Hematocrit (blood only) 38.1 % (42.0-52.0); Hemoglobin 12.5 g/dl (14.0-18.0); Immature Granulocytes # (auto) 0.05 K/uL (0.01-0.20); Immature Granulocytes % (auto) 0.4 %; Lymphocytes # (auto) 1.69 K/uL (1.20-3.40); Lymphocytes % (auto) 13.4 %; Mean Corpuscular Hemoglobin 28.1 pg (25.0-34.0); Mean Corpuscular Hgb Conc 32.8 g/dL (32.0-36.0); Mean Corpuscular Volume 85.6 fL (80.0-100.0); Mean Platelet Volume 10.6 fL (9.4-12.4); Monocytes % (auto) 8.7 %; Neutrophils # (auto) 9.62 K/uL (1.40-6.50); Neutrophils % (auto) 76.5 %; Platelet Count 309 K/uL (130-400); RDW Standard Deviation 40.6 fL (36.4-46.3); Red Blood Count 4.45 M/uL (4.70-6.10); White Blood Count 12.59 K/ul (4.8-10.8)
[2024-09-06 13:14] LABS: Troponin I High Sensitivity 13.5 pg/ml (0-20)
--- NOTE | 2024-09-06 13:44 | CT Scan Report ---
CT thoracic spine wo con HISTORY: 79 years-old Male upper back pain s/p fall 2 week ago acute mid back pain status post fall COMPARISON: 05/12/2024 TECHNIQUE: Multiple axial CT images of the thoracic spine were obtained without IV contrast. A dose l owering technique was used consistent with the principals of RUSTAM. FINDINGS: Subacute T12 compression deformity demonstrates progressive vertebral body height loss, now of approx imately 50% with 3 mm retropulsion. Subacute L1 compression deformity also demonstrates progressive v ertebral body height loss, now of greater than 50%. There is a mild acute-appearing T6 compression de formity with approximately 30% vertebral body height loss and no retropulsion. Unchanged mild superio r endplate compression at T3. Mild upper thoracic levoscoliosis. No additional acute fracture or subluxation. No acute displaced ri b fractures identified. Cardiomegaly. Bilateral perinephric stranding. Small hiatal hernia. No pneum othorax. IMPRESSION: 1. Mild acute T6 compression deformity without retropulsion. 2. Subacute T12 and L1 compression deformities demonstrate progressively worsened vertebral body heig ht loss compared to the 05/12/2024 study. ACT 112: Negative or not required by law. The above report was generated using voice recognition software. It may contain grammatical, syntax o r spelling errors. Electronically signed by: Fabio Simmons M.D. 09/06/2024 1:43 PM
--- NOTE | 2024-09-06 14:12 | XRay Report ---
XR chest 1V portable HISTORY: 79 years-old Male Chest pain, nonspecific COMPARISON: 05/12/2024 TECHNIQUE: AP view the chest FINDINGS: Cardiac silhouette is mildly enlarged. No pneumothorax, pleural effusion or overt pulmonary edema. Mi ld left basilar airspace opacities are new from prior. Bones appear grossly intact. IMPRESSION: 1. Mild cardiomegaly without pulmonary edema. 2. Mild left basilar opacities favor atelectasis. ACT 112: Negative or not required by law. The above report was generated using voice recognition software. It may contain grammatical, syntax o r spelling errors. Electronically signed by: Fabio Simmons M.D. 09/06/2024 2:11 PM
[2024-09-06] MEDS: NovoLIN-R INSULIN PER UNIT CHARGE IV STA (14:15)
--- NOTE | 2024-09-06 14:27 | Electrocardiogram Report ---
Test Reason : Blood Pressure : */* mmHG Vent. Rate : 85 BPM Atrial Rate : 85 BPM P-R Int : 150 ms QRS Dur : 114 ms QT Int : 402 ms P-R-T Axes : 44 -52 68 degrees QTcB Int : 478 ms Sinus rhythm with frequent Premature atrial complexes Incomplete right bundle branch block Left anterior fascicular block Left ventricular hypertrophy ( R in aVL ) Abnormal ECG When compared with ECG of 12-May-2024 00:39, Questionable change in initial forces of Septal leads T wave inversion now evident in Anterior leads Confirmed by Hill Echevarria ([id number]) on 09/06/2024 2:26:44 PM Referred By: REFERRED SELF Confirmed By: Hill Echevarria
[2024-09-06 15:24] LABS: Appearance Urine Turbid (Clear); Bacteria Urine Automated 4+ (None Seen); Bilirubin Urine Negative (Negative); Blood Urine 1+ (Negative); Cast Urine Automated 0-2 /lpf (0-2); Color Urine Yellow; Epithelial Cell Urine Auto 0-2 /hpf (0-2); Glucose Urine UA 3+ (Negative); Ketones Urine Negative (Negative); Leukocyte Esterase Urine 2+ (Negative); Nitrite Urine Positive (Negative); Protein Urine 1+ (Negative); Specific Gravity Urine 1.024 (1.000-1.030); Urobilinogen Urine Negative (Negative); WBC Urine Automated >50 /hpf (0-5)
[2024-09-06] MEDS ORDERED: DOCUSATE SODIUM/SENNA 50/8.6MG TAB PO PRN (16:21)
[2024-09-06] MEDS ORDERED: POLYETHYLENE (MIRALAX) 17 GM PACK PO PRN (16:21)
[2024-09-06] MEDS ORDERED: PHARMACY GLYCEMIC MGMT CONSULT PRN (16:38)
[2024-09-06] MEDS ORDERED: GLUCOSE 40% GEL 15 GM TUBE PO PRN (16:38)
[2024-09-06] MEDS ORDERED: DEXTROSE 50% 50 ML SYRINGE IV PRN (16:38)
[2024-09-06] MEDS ORDERED: GLUCAGON FOR INJ 1 MG VIAL SQ PRN (16:38)
[2024-09-06] MEDS ORDERED: CARBOHYDRATES FOR HYPOGLYCEMIA PO PRN (16:38)
[2024-09-06] MEDS ORDERED: GLUCOSE 10 TAB/TUBE PO PRN (16:38)
--- NOTE | 2024-09-06 16:55 | History & Physical Report ---
Date of Service September 06, 2024 Assessment & Plan (1) Closed compression fracture of thoracic vertebra: (2) Lymphedema: (3) Fall: (4) HTN (hypertension): (5) Diabetic ulcer of right foot: (6) Charcot foot due to diabetes mellitus: (7) Chronic indwelling Hanna catheter: (8) Severe aortic stenosis: (9) Chronic heart failure with preserved ejection fraction (HFpEF): (10) Homeless: (11) BPH (benign prostatic hyperplasia): (12) Paroxysmal atrial fibrillation: (13) Diabetes mellitus, type II: Plan Assessment and plan: Mechanical fall Mild acute T6 compression deformity Subacute T12 and L1 compression Fell 1 week ago, subacute fractures noted in imaging of 05/21/2024 Mild acute T6 fracture with pain noted, new, consult orthospine for recommendations Pain control with home oxycodone dosing, PT/OT L rib pain: Chest x-ray negative, check L rib x-ray Bilateral foot diabetic wounds: Follows with wound care outpatient, check bilateral foot x-rays Consider MRI if osteo suspected, wound cultures ordered Continue IV Dapto/Zosyn, blood cultures pending Hx bilateral lower extremity lymphedema: Right leg more swollen than left leg, patient has not been taking his Eliquis Check bilateral lower extremity ultrasound rule out DVT, continue Lasix Hx AF/CAD/HTN/HLD: Continue metoprolol/Eliquis/aspirin/statin Hx DM -uncontrolled: Last known A1c 14, patient denies taking insulin over the past week Sugar 491 on arrival, IV fluids ordered, SSI/4 times daily BGM Can add long-acting Lantus as needed, glycemic pharmacy consult Hx chronic Hanna catheter, BPH: Continue tamsulosin/finasteride History of recurrent UTIs, pansensitive Pseudomonas which IV Zosyn will cover A total of 60 minutes was spent on chart review/facilitating plan of care/discussion with consultants/reviewing diagnostic data Full code DVT prophylaxis: Eliquis Admission and Anticipated Discharge Date Admission Date: September 06, 2024 History of Present Illness Chief Complaint: Back pain Primary Care Provider: James Maria DO The patient is a 79-year-old male with a past medical history of bilateral lower extremity lymphedema, DM 2, uncontrolled, HTN, chronic bilateral diabetic foot ulcers, right Charcot right foot, severe aortic stenosis, CHFEF 60-65%, A-fib on Eliquis, PAD, HLD, chronic indwelling Hanna catheter, BPH, recurrent UTIs, chronic anemia, severe hearing loss who presents to the ED on 09/06/2024 with complaints of upper back pain. Patient reports falling 7 days ago and having some back pain. He denies any shortness of breath but does report some left rib pain. He also reports his wounds on his foot worsening and inability to walk over the past week. He is currently homeless and lives in a van outside of his 's apartment. Per EMR, patient has some hoarding tendencies. Patient reports losing his medications he has been unable to take them for the past 4 days. On arrival to the ED labs remarkable for WBC 12, hemoglobin 12.5, sodium 130, chloride 92, BUN 25, creatinine 1.6, glucose 491, UA grossly positive the patient does have a chronic Hanna catheter Chest x-ray showed mild cardiomegaly without pulmonary edema, mild left basilar opacities Thoracic spine CT showed acute T6 compression deformity without retropulsion Subacute T12 and L1 compression deformities, progressively worsened vertebral body height loss The patient will be admitted for pain control and infectious workup for bilateral foot wounds Allergies Allergy/AdvReac Type Severity Reaction Status Date / Time lisinopril Allergy Severe Swelling Verified 08/29/24 10:16 of Face/Lips/Tongue Home Medications Medication Instructions Recorded Confirmed Type apixaban 5 mg tablet (Eliquis) 5 mg PO BID #60 tabs 08/18/23 09/06/24 Rx atorvastatin 40 mg tablet 40 mg PO QAM #30 tabs 08/18/23 09/06/24 Rx finasteride 5 mg tablet 5 mg PO DAILY #30 tabs 08/18/23 09/06/24 Rx insulin aspart U-100 100 unit/mL 5 unit (0.05 mL) subcut TIDM #15 mL 08/18/23 09/06/24 Rx (3 mL) subcutaneous pen (Novolog FlexPen U-100 Insulin aspart) pantoprazole 40 mg tablet,delayed 40 mg PO DAILY #30 tabs 08/18/23 09/06/24 Rx release tamsulosin 0.4 mg capsule 0.4 mg PO DAILY #30 caps 08/18/23 09/06/24 Rx insulin glargine 100 unit/mL (3 22 unit subcut HS 04/07/24 09/06/24 History mL) subcutaneous pen (Lantus Solostar U-100 Insulin) aspirin 81 mg tablet,delayed 81 mg PO QAM #30 tabs 04/22/24 09/06/24 Rx release L.acidop,casei,lactis,rham-B.lact,anthony 1 cap PO DAILY #10 caps 05/17/24 09/06/24 Rx 625 mg (10 billion cell) capsule (Advanced Probiotic) metoprolol tartrate 25 mg tablet 25 mg PO BID #60 tabs 05/17/24 09/06/24 Rx oxycodone 5 mg tablet 5 mg PO QID PRN pain #10 tabs 05/17/24 09/06/24 Rx polyethylene glycol 3350 17 gram 17 g PO DAILY PRN constipation #14 05/17/24 09/06/24 Rx oral powder packet (Miralax) ea sennosides 8.6 mg-docusate sodium 1 tab PO BID PRN constipation #30 05/17/24 09/06/24 Rx 50 mg tablet (Senokot-S) tabs furosemide 20 mg tablet 20 mg PO QAM 09/06/24 09/06/24 History Past Med/Surg History Problem List (Updated 09/06/24 @ 16:33 by Abdullahi Mai DO) Closed compression fracture of thoracic vertebra (Acute) Lymphedema (Chronic) Fall (Acute) Open wound of finger (Acute) Diabetic peripheral neuropathy associated with type 2 diabetes mellitus HTN (hypertension) Diabetic ulcer of right foot (Acute) Charcot foot due to diabetes mellitus Closed T12 fracture (Acute) Diabetic ulcer of left heel (Acute) Hyponatremia (Acute) Otitis externa of left ear Chronic indwelling Hanna catheter Otitis externa Ambulatory dysfunction Severe aortic stenosis Chronic heart failure with preserved ejection fraction (HFpEF) Ear drum perforation Hydronephrosis, bilateral Severe hearing loss Open wound of abdomen (Acute) Homeless (Acute) BPH (benign prostatic hyperplasia) Edema of both legs Hypertension Paroxysmal atrial fibrillation Diabetes mellitus, type II (Chronic) Dyslipidemia Medical History (Updated 09/06/24 @ 16:33 by Abdullahi Mai DO) Asymptomatic hypertensive urgency Bilateral lower leg cellulitis Blister of finger Maggot infestation Catheter-associated urinary tract infection CESAR (acute kidney injury) Surgical History History of ear surgery age 19, mastoid H/O shoulder surgery S/P foot surgery, left Family History Brother Diabetes Social History Smoking Status: Former smoker Tobacco Type: Cigarettes Second Hand Exposure: No; Do You Dip or Chew Tobacco: No; Hx Alcohol Use: Yes Alcohol type: beer Alcohol Intake Frequency: 2-3 x/Week Hx Substance Use: No Preferred Language: [place] Communication Ability: Effective Communication Ability Comment: Deaf Visual Impairment: Limited Hearing Ability: Use of Hearing Aid Formula Maker Required: No Beliefs That Will Affect Care: None marital status: Current Living Situation: Alone and Homeless Current Living Situation Comment: Living in his car current occupational status: retired How many Children do You have: 3 Feels Safe at Home: Yes during the past year weight has: remained stable Dental Care, Regularly: No Physical Activity Frequency: Does not Exercise Assistive Devices: Cane and Walker Review of Systems Review of Systems: All systems reviewed & are unremarkable except as noted in HPI & below Physical Exam Constitutional: WD/WN, vitals as above + ill appearing and + morbidly obese; + not well nourished Eyes: PERRL, conjunctivae normal, anicteric sclerae ENMT: external ear and nose normal, oropharynx normal (Severely hard of hearing) Neck: trachea midline, no thyromegaly Respiratory: normal respiratory effort, lungs clear to auscultation Cardiovascular: Rate/Rhythm: regular rate Heart Sounds: + murmur Gastrointestinal (Abdomen): normal bowel sounds, soft, nontender, no hepatosplenomegaly (Left rib pain) Musculoskeletal: no cyanosis or clubbing, extremities motor strength 5/5 (Generalized weakness) Skin: no rashes, warm and dry (Bilateral foot wounds) Neurologic: PERRL, EOMI, accommodation nl, no face palsy, no dysarthria Psychiatric: A+Ox3, euthymic affect Genitourinary: no testicular masses, no penis abnormality (Chronic Hanna catheter) Lymphatic: no cervical or axillary lymphadenopathy Results & Data Results & Data Vital Signs (Past 12 Hours) Vital Signs Temp Pulse Pulse Resp BP BP Pulse Ox 09/06/24 15:50 77 16 136/74 95 09/06/24 14:00 79 16 140/75 90 09/06/24 12:37 83 09/06/24 12:09 95 09/06/24 12:08 86 16 97 09/06/24 11:47 36.7 C 84 20 122/71 95 O2 Del Method 09/06/24 15:50 09/06/24 14:00 Room Air 09/06/24 12:37 09/06/24 12:09 Room Air 09/06/24 12:08 Room Air 09/06/24 11:47 Room Air Laboratory Results Laboratory Results WBC 12.59 K/ul (4.8-10.8) H 09/06/24 12:25 RBC 4.45 M/uL (4.70-6.10) L 09/06/24 12:25 Hgb 12.5 g/dl (14.0-18.0) L 09/06/24 12:25 Hct 38.1 % (42.0-52.0) L 09/06/24 12:25 MCV 85.6 fL (80.0-100.0) 09/06/24 12:25 MCH 28.1 pg (25.0-34.0) 09/06/24 12:25 MCHC 32.8 g/dL (32.0-36.0) 09/06/24 12:25 RDW Std Deviation 40.6 fL (36.4-46.3) 09/06/24 12:25 RDW Coeff of Scott 13.0 % (11.5-14.5) 09/06/24 12:25 Plt Count 309 K/uL (130-400) 09/06/24 12:25 MPV 10.6 fL (9.4-12.4) 09/06/24 12:25 Immature Gran % (Auto) 0.4 % 09/06/24 12:25 Neut % (Auto) 76.5 % 09/06/24 12:25 Lymph % (Auto) 13.4 % 09/06/24 12:25 Yell % (Auto) 8.7 % 09/06/24 12:25 Eos % (Auto) 0.7 % 09/06/24 12:25 Baso % (Auto) 0.3 % 09/06/24 12:25 Neut # (Auto) 9.62 K/uL (1.40-6.50) H 09/06/24 12:25 Lymph # (Auto) 1.69 K/uL (1.20-3.40) 09/06/24 12:25 Yell # (Auto) 1.10 K/uL (0.11-0.59) H 09/06/24 12:25 Eos # (Auto) 0.09 K/uL (0.00-0.50) 09/06/24 12:25 Baso # (Auto) 0.04 K/uL (0.00-0.20) 09/06/24 12:25 Immature Gran # (Auto) 0.05 K/uL (0.01-0.20) 09/06/24 12:25 Sodium 130 mmol/L (136-145) L 09/06/24 12:25 Potassium 4.7 mmol/L (3.5-5.1) 09/06/24 12:25 Chloride 92 mmol/L (98-107) L 09/06/24 12:25 Carbon Dioxide 29 mmol/L (21-32) 09/06/24 12:25 Anion Gap 9 (3-11) 09/06/24 12:25 BUN 25 mg/dl (6-23) H 09/06/24 12:25 Creatinine 1.60 mg/dl (0.6-1.4) H 09/06/24 12:25 Est Cr Clr Drug Dosing 37.8 ml/min 09/06/24 12:25 eGFR 43.56 09/06/24 12:25 BUN/Creatinine Ratio 15.6 (10-20) 09/06/24 12:25 Glucose 491 mg/dl (70-99(Fasting)) H* 09/06/24 12:25 Calcium 9.0 mg/dl (8.6-10.3) 09/06/24 12:25 Total Bilirubin 1.0 mg/dl (0.2-1.0) 09/06/24 12:25 AST 11 U/L (13-39) L 09/06/24 12:25 ALT 5 U/L (7-52) L 09/06/24 12:25 Alkaline Phosphatase 137 U/L (34-104) H 09/06/24 12:25 Troponin I High Sens 13.5 pg/ml (0-20) 09/06/24 12:25 Total Protein 8.0 gm/dl (6.0-8.3) 09/06/24 12:25 Albumin 3.4 gm/dl (3.4-5.0) 09/06/24 12:25 Globulin 4.6 gm/dl (2.5-4.0) H 09/06/24 12:25 Albumin/Globulin Ratio 0.7 (0.9-2) L 09/06/24 12:25 Lipase 63 U/L (11-82) 09/06/24 12:25 Urine Color Yellow 09/06/24 12:46 Urine Appearance Turbid (Clear) A 09/06/24 12:46 Urine pH 7.0 (4.5-7.5) 09/06/24 12:46 Ur Specific [place] 1.024 (1.000-1.030) 09/06/24 12:46 Urine Protein 1+ (Negative) H 09/06/24 12:46 Urine Glucose (UA) 3+ (Negative) H 09/06/24 12:46 Urine Ketones Negative (Negative) 09/06/24 12:46 Urine Blood 1+ (Negative) H 09/06/24 12:46 Urine Nitrite Positive (Negative) A 09/06/24 12:46 Urine Bilirubin Negative (Negative) 09/06/24 12:46 Urine Urobilinogen Negative (Negative) 09/06/24 12:46 Ur Leukocyte Esterase 2+ (Negative) H 09/06/24 12:46 Urine WBC (Auto) >50 /hpf (0-5) H 09/06/24 12:46 Urine RBC (Auto) 11-20 /hpf (0-2) H 09/06/24 12:46 U Hyaline Cast (Auto) 0-2 /lpf (0-2) 09/06/24 12:46 U Epithel Cells (Auto) 0-2 /hpf (0-2) 09/06/24 12:46 Urine Bacteria (Auto) 4+ (None Seen) H 09/06/24 12:46 Urine Yeast Present (None Prsent) A 09/06/24 12:46 Impressions Chest X-Ray 09/06/24 12:03 XR chest 1V portable HISTORY: 79 years-old Male Chest pain, nonspecific COMPARISON: 05/12/2024 TECHNIQUE: AP view the chest FINDINGS: Cardiac silhouette is mildly enlarged. No pneumothorax, pleural effusion or overt pulmonary edema. Mild left basilar airspace opacities are new from prior. Bones appear grossly intact. IMPRESSION: 1. Mild cardiomegaly without pulmonary edema. 2. Mild left basilar opacities favor atelectasis. ACT 112: Negative or not required by law. The above report was generated using voice recognition software. It may contain grammatical, syntax or spelling errors. Electronically signed by: Fabio Simmons M.D. 09/06/2024 2:[address] 09/06/24 12:16 CT thoracic spine wo con HISTORY: 79 years-old Male upper back pain s/p fall 2 week ago acute mid back pain status post fall COMPARISON: 05/12/2024 TECHNIQUE: Multiple axial CT images of the thoracic spine were obtained without IV contrast. A dose lowering technique was used consistent with the principals of RUSTAM. FINDINGS: Subacute T12 compression deformity demonstrates progressive vertebral body height loss, now of approximately 50% with 3 mm retropulsion. Subacute L1 compression deformity also demonstrates progressive vertebral body height loss, now of greater than 50%. There is a mild acute-appearing T6 compression deformity with approximately 30% vertebral body height loss and no retropulsion. Unchanged mild superior endplate compression at T3. Mild upper thoracic levoscoliosis. No additional acute fracture or subluxation. No acute displaced rib fractures identified. Cardiomegaly. Bilateral perinephric stranding. Small hiatal hernia. No pneumothorax. IMPRESSION: 1. Mild acute T6 compression deformity without retropulsion. 2. Subacute T12 and L1 compression deformities demonstrate progressively worsened vertebral body height loss compared to the 05/12/2024 study. ACT 112: Negative or not required by law. The above report was generated using voice recognition software. It may contain grammatical, syntax or spelling errors. Electronically signed by: Fabio Simmons M.D. 09/06/2024 1:43 PM (1) Closed compression fracture of thoracic vertebra Encounter type: initial encounter Qualified Code(s): S22.000A - Wedge compression fracture of unspecified thoracic vertebra, initial encounter for closed fracture (3) Fall Encounter type: initial encounter Qualified Code(s): W19.XXXA - Unspecified fall, initial encounter (5) Diabetic ulcer of right foot Diabetic foot ulcer location: midfoot Diabetes mellitus type: type 2 Non- pressure ulcer stage: with fat layer exposed Qualified Code(s): E11.621 - Type 2 diabetes mellitus with foot ulcer; L97.412 - Non-pressure chronic ulcer of right heel and midfoot with fat layer exposed (13) Diabetes mellitus, type II Diabetes mellitus correction insulin use: with intermediate manager use Diabetes mellitus complication status: with skin complications Diabetes mellitus complication detail: with foot ulcer Qualified Code(s): E11.621 - Type 2 diabetes mellitus with foot ulcer; L97.509 - Non-pressure chronic ulcer of other part of unspecified foot with unspecified severity; Z79.4 - ad terminal 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
--- NOTE | 2024-09-06 16:58 | Communication Note ---
Date of Service: September 06, 2024 Attending Addendum: Case reviewed with the advanced practitioner. I have personally performed a history and physical examination on the patient. I have reviewed the advanced practitioner's documentation on the date of service referenced in note, and I agree with, and take responsibility for the plan of care. please refer to her notes for full details patient seen and examined, records reviewed by myself as well on exam, patient seen resting in bed, comfortable, not in distress States back pain is okay if he is not moving Denies active foot pain No shortness of breath, chest pain, palpitations, nausea no other symptoms VS noted and reviewed oriented x3, not in distress, speaks in sentences with no effort nor accessory muscle use normal rate, regular rhythm,Positive grade 4 out of 6 holosystolic murmur clear breath sounds bilaterally non distended, soft, nontender Grade 2 lower extremity edema, bilateral Positive open large heel ulcer, right foot, with purulent drainage (+) hearing loss, otherwise no gross focal neuro deficits all labs, imaging noted and reviewed ASSESSMENT AND PLAN> T6 acute compression fracture Status post mechanical fall Pain control with Tylenol, usual as needed oxycodone Orthospine consult PT OT evaluation Infected chronic right ulcer wound Uncontrolled diabetes type 2 Start with foot x-ray to rule out osteomyelitis Blood culture ordered IV daptomycin plus Zosyn Podiatry consult A1c tomorrow Pharmacy glycemic consult, visual educator Bilateral lower extremity edema Chronic heart failure with preserved ejection fraction Borderline severe to severe aortic stenosis, based on echocardiogram 04/25 Has missed diuretics and other medications for the past 4 days Usually takes Lasix 20 mg p.o. daily Will give IV Lasix 20 mg 1 dose today, then resume usual 20 mg p.o. tomorrow other diagnoses and plan of care as per advanced practitioner's notes Delano Qureshi MD
[2024-09-06] MEDS: DAPTOmycin 400 MG in SYRINGE 0 ML IV SCH (17:46)
[2024-09-06] MEDS: PIPERACILLIN/TAZOBACTAM 4.5 GM/100 ML BAG IV ONE (17:46)
[2024-09-06] MEDS: LACTATED RINGER'S 1,000 ML IV SCH (17:50)
[2024-09-06] MEDS: INSULIN ASPART PER UNIT CHARGE SC SCH (18:23)
[2024-09-06] MEDS: LACTOBACILLUS ACIDOPHILUS 1 GM PACK PO SCH (18:25)
[2024-09-06] MEDS: LANTUS PER UNIT CHARGE SC SCH (18:27)
[2024-09-06] MEDS: METOPROLOL TARTRATE 25 MG TAB PO SCH (20:13)
[2024-09-06] MEDS: APIXABAN 5 MG TABLET PO SCH (20:13)
[2024-09-06] MEDS ORDERED: Nursing to Pharmacy Communication SCH (21:30)
[2024-09-06] MEDS: INSULIN HUMAN REGULAR PER UNIT 5 UNITS in SYRINGE 4.95 ML IV ONE (22:17)
[2024-09-06] MEDS: oxyCODONE HCL IR 5 MG TAB (IMMEDIATE RELEASE) PO PRN (22:21)
[2024-09-06] MEDS: PIPERACILLIN/TAZOBACTAM 4.5 GM/100 ML BAG IV SCH (23:11)
--- OUTSIDE RECORDS SUMMARY | 2024-09-06 23:35 | External Medical Summary | Summary of Care ---
Author Name Unknown Organization [facility] Address [address] [place] [address] Phone [phone] Care Team Providers Care Inlayer Silver Name Role Phone James Maria DO Primary Care Provider Reason for Visit * Reason Onset Date Comments Advice 08/30/2024 Encounter Details Date Type Department Care Team (Late st Contact Info) Description 08/30/2024 Telephone Family Practice [facility] [address] [place] [phone] James Maria DO [address] [place] [address] Advice Allergies Active Allergy Reactions Criticality Noted Date Comments Lisinopril Edema face/lips/tongue High 04/05/2018 documented as of this encounter (statuses as of 08/30/2024) Medications Medication Sig Dispensed Refills Start Date End Date Status ONETOUCH ULTRA BLUE STRP USE TO CHECK GLUCOSE 4 TIMES DAILY 100 Strip 7 Active Additional Information Patient not taking.Informant: Spouse, Reported on 07/27/2024 Sildenafil Citrate (VIAGRA) 50 MG TabletIndications:Imp otence of organic origin Take 1 Tab by mouth as needed for Erectile Dysfunction. 5 Tab 6 7 Active Glucose Blood (ONETOUCH VERIO) STRP Use up to 4 times a day E11.9 300 Strip 3 7 Active Additional Information Patient not taking.Informant: Spouse, Reported on 07/27/2024 Fluorouracil 5 % External Cream (Efudex) Apply to Scalp, ears, and temples twice a day for three weeks. 40 g 1 1 Active Insulin Syringe-Needle U-100 30G X 5/16" 0.3 MLIndications:Type 2 diabetes mellitus with polyneuropathy ([facility]),Type 2 diabetes mellitus with hemoglobin A1c goal of less than 8.0% ([facility]) Use up to 4 x a day for insulin dosing E11.9 3 Each 1 1 Active Insulin Aspart 100 UNIT/ML Injection Solution 5 Units. Pt takes 5 to 6 units before meals 2 Active Gentamicin Sulfate 0.1 % External OintmentIndications:S econdary impetiginization Apply to wounds on hands twice daily 15 g 1 3 Active Silver sulfADIAZINE 1 % External Cream (Silvadene) Apply to wounds on hands 100 g 1 3 Active Pen [place] 32G X 4 MM Use as directed. Use to inject insulin up to 4 times daily. 30 Each 3 Active Additional Information Patient not taking.Reported on 07/27/2024 Ammonium Lactate 12 % External Cream Apply to both feet once daily. 280 g 5 3 Active Xultophy 100-3.6 UNIT-MG/ML Subcutaneous Solution Pen-injector (Insulin Degludec-Liraglutide) Inject 15 Units under the skin at bedtime. 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 180 Tablet 3 4 Active Finasteride 5 MG Oral Tablet (Proscar) Take 1 Tablet by mouth in the morning. Active Pen [place] 32G X 4 MMIndications:Type 2 diabetes mellitus with hemoglobin A1c goal of less than 8.0% ([facility]) Use as directed. Use to inject insulin up to 4 times daily. 400 Each 3 4 Active Additional Information Patient not taking.Reported on 07/27/2024 Metoprolol Tartrate 25 MG Oral Tablet (Lopressor)Indication s:Chronic atrial fibrillation (HCC) TAKE ONE TABLET BY MOUTH TWICE A DAY -- IN THE MORNING AND BEFORE BEDTIME 180 Tablet 1 4 02/20/20 25 Active Atorvastatin Calcium 40 MG Oral Tablet (Lipitor)Indications: Dyslipidemia TAKE ONE TABLET BY MOUTH EVERY DAY 90 Tablet 1 4 03/14/20 25 Active OneTouch Verio w/Device KitIndications:Type 2 diabetes mellitus with stage 3b chronic kidney disease, with long-term current use of insulin (HCC) Use up to 4 times a day E11.9 1 Kit 4 Active Additional Information Patient not taking.Reported on 07/27/2024 OneTouch Verio In Vitro Strip (Glucose Blood)Indications:Typ e 2 diabetes mellitus with stage 3b chronic kidney disease, with long-term current use of insulin (HCC) Use up to 4 times a day E11.9 300 Strip 3 4 Active Additional Information Patient not taking.Reported on 07/27/2024 Pantoprazole Sodium 40 MG Oral Tablet Delayed Release (Protonix)Indications :Gastroesophageal reflux disease without esophagitis Take 1 Tablet by mouth in the morning. 90 Tablet 3 4 Active OneTouch Delica Lancets 33G Use as directed 4 times a day as needed for Hypoglycemia (low sugar) or Hyperglycemia (high sugar). 300 Each 5 4 Active DIURETIC TITRATION PLANIndications:Chron ic heart failure with preserved ejection fraction (HCC),Need for case management follow-up If no improvement on day 3, contact heart failure managing provider. 1 Each 4 Active Furosemide 20 MG Oral Tablet (Lasix)Indications:Ed papi Take 1 Tablet by mouth in the morning. 30 Tablet 5 4 Active documented as of this encounter (statuses as of 08/30/2024) Active Problems Problem Noted Date Diagnosed Date Localized edema 08/22/2024 Lack of adequate food and safe drinking [...] insulin use Medical home patient encounter 05/07/2023 Chronic heart failure with preserved ejection fr action 01/06/2023 Cellulitis of toe of left foot 06/05/2022 Last Assessment & Plan: Wound culture taken Start keflex 500 mg QID x 7 days Wound care clinic tomorrow Unsteady gait when walking 05/27/2022 Last Assessment & Plan: PT/OT eval ordered/faxed Overweight (BMI 25.0-29.9) 05/22/2022 Hoarding behavior 03/20/2022 Paroxysmal atrial fibrillation 03/20/2022 Last Assessment & Plan: Rate controlled Continue metoprolol and eliquis Nonrheumatic aortic valve stenosis 03/20/2022 Diabetic ulcer of toe of rig ht foot associated with type 2 diabetes mellitus, with fat layer exposed 01/09/2022 Atherosclerosis of enterprise co 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 angina pectoris 01/09/2022 [...] as of this encounter (statuses as of 08/30/2024) Resolved Problems Problem Noted Date Diagnosed Date Resolved Date Chronic kidney disease, stage 3b 02/08/2024 03/16/2024 Chronic kidney disease, stage 3a 09/14/2023 03/16/2024 Overview: Per CKD protocol Hypertensive heart disease w ith chronic diastolic congestive heart failure 01/20/202306/09 Overview: More specified on pl Heart failure 06/05/2022 01/20/2023 Puncture wound of [...] as of this encounter (statuses as of 08/30/2024) Immunizations Name Administration Dates Next Due COVID-19 mRNA, LNP-s, No Pre serve, 2-Dose Series (Moderna) 03/24/2021,02/22/2021 COVID-19, LNP-s, No Preserve , Ministerio-sucrose, Ages 12+ (Pfizer) 02/25/2022 Covid-19, Mrna, Lnp-s, Pf, B ivalent, 30 Mcg, IM, 12 yrs and above (Pfizer) 11/17/2022 Pneumococcal Conjugate Vacc, 13 Valent (Prevnar) 12/24/2015 Pneumococcal Polysaccharide PPV23 (Pneumovax) 07/23/2011 Seasonal Influenza Vac., MDV , IM, 0.5 mL (Fluzone) 08/15/2014,2013,08/03/2012,07/23,09/10/2010,12/25/2009,08/06/2009 ,11/01/2008 Seasonal Influenza Virus Vac cine, Unspecified Formulation 08/10/2021,08/03/2020,08/22/2019,10/21,09/10/2017,09/16/2016,2013 ,08/03/2012,07/23/2011,09/10/2010,12/04,08/06/2009,11/01/2008 Seasonal Influenza, High Dos e, Trivalent, PF, IM (Fluzone HD) 07/27/2024 Seasonal Influenza, PF, 6 M & above, IM , (FluLaval or Fluzone) 08/03/2020,10/21/2018,09/10/2017 Seasonal Influenza, Quadriva lent Hd (Fluzone Hd) 07/13/2023,08/05/2022,08/10/2021 Seasonal Influenza, Quadriva lent, No Preserve, IM 09/16/2016,11/22/2015 Seasonal Influenza, Trivalen t, Adjuvanted, 65+ YRS, PF, (Fluad) 08/22/2019 TDAP (age 10 and older)(Boostrix) 02/03/2023 [...] the money to buy more. Never true 06/10/20 24 Within the past 12 months, t he food you bought just didn't last and you didn't have money to get more. Never true 06/10/2024 Childcare Answer Date Recorded Do you feel overwhelmed with taking care of a child, family member or friend? No 06/10/2024 Does your family need help f inding childcare? (Household - for ages 0-17 years) Not on file 06/10/2024 Clothing Answer Date Recorded Have you been unable to get clothing when it was really needed? No 06/10/2024 Is your family able to get c lothes or diapers when needed? (Household - for ages 0-17 years) Not on file 06/10/2024 Personal Safety Answer Date Recorded Do you feel unsafe or have concerns for your saf ety? No 06/10/2024 Do you have concerns for you r family's safety? (Household - for ages 0-17 years) Not on file 06/10/2024 Utilities Answer Date Recorded Do you have trouble paying y our heating, water, or electric bill? No 06/10/2024 Is your family able to pay t he heat, water, or electric bill? (Household - for ages 0-17 years) Not on file 06/10/2024 Does your family have access to good internet? (Household - for ages 0-17 years) Not on file 06/10/2024 Employment Status Answer Date Recorded Are you unemployed or without regular income? No 06/10/2024 Does the household have a re gular source of income? (Household - for ages 0-17 years) Not on file 06/10/2024 Social Connections Answer Date Recorded How often do you feel lonely or isolated from th ose around you? Never 06/10/2024 Financial Resource Strain Answer Date R ecorded Do you have any trouble payi ng for your medications, or do you think you might in the future? No 06/10/2024 Does your family have troubl e paying for medicine? (Household - for ages 0-17 years) Not on file 06/10/2024 Transportation Needs Answer Date Record ed READ ONLY Do you have troubl e getting a ride to medical visits or work? Never True 06/10/2024 Does your family have a hard time getting a ride to doctors visits? (Household - for ages 0-17 years) Not on file 06/10/2024 Has lack of transportation k ept you from medical appointments, meetings, work, or from getting things needed for daily living? Check all that apply. No 06/10/2024 Do you (or your family) have trouble finding or paying for a ride (transportation)? (Household - for ages 0-17 years) Not on file 06/10/2024 Housing Stability Answer Date Recorded Do you currently live in a s helter or have no steady place to sleep at night? Yes 06/10/2024 READ ONLY Do you think you a re at risk of becoming homeless? No 06/10/2024 Does your family worry about paying for your home or becoming homeless? (Household - for ages 0-17 years) Not on file 0 06/10/2024 Are you homeless or worried that you might be in the future? Yes 06/10/2024 Are you (or your family) eli eless or worried that you might be in the future? (Household - for ages 0-17 years) Not on file Food Insecurity Answer Date Recorded Do you need food for this week? No 06/10/2024 Are you able to get enough f ood for your family? (Household - for ages 0-17 years) Not on file 06/10/2024 Does your family need food t his week? (Household - for ages 0-17 years) Not on file 06/10/2024 Do you always have enough fo od for your family? (Household - for ages 0-17 years) Not on file 06/10/2024 Sex and Gender Information Value Date Recorded Sex Assigned at Male 11/21/2019 11:44 AM EST Gender Identity Male 11/21/2019 11:44 AM EST Sexual Orientation Straight 11/21/2019 11 :44 AM EST Job Start Date Occupation Industry Not on file Not on file Not on file documented as of this encounter Miscellaneous Notes * Telephone Encounter - Gualberto White OSA - 08/30/2024 3:41 PM EDT Vania from [facility] [place] called in stating patient is finally willing to go to [facility] for further treatment. Patient is currently homeless. Needs a soon appointment with Dr. Maria or anyone in the office to start the process of getting patient help with pain management. Nothing available. If any questions, please call back Vania. [phone]. documented in this encounter Plan of Treatment Upcoming Encounters Date Type Department Care Team (Late st Contact Info) Description 09/22/2024 6:10 PM EST Pharmacy Pharmacy, [facility] [address] [place] [address] [facility] [address] [place] [address] 10/05/2024 11:40 AM EST Office Visit Podiatry [facility] [address] [place] [address] Kylie Burroughs, [address] [place] [address] 10/25/2024 1:20 PM EST Office Visit Family Practice [facility] [address] [place] [address] James Maria DO [address] [place] [address] 11/21/2024 2:30 PM EST Cardiac Studies Cardiac Studies, [facility] [address] [place] [address] 11/25/2024 9:30 AM EST Office Visit Audiology, [place] [address] [place] [address] Mary Merritt Au.D. [address] [place] [address] 11/25/2024 10:00 AM EST Office Visit Otolaryngology/Head & Neck/Facial Plastic Surgery [address] [place] [address] Jose Antonio Su MD [address] [place] [address] 11/30/2024 9:30 AM EST Office Visit Cardiology, [facility] [address] [place] [address] Shelley Russell PA-C [address] [place] [address] 02/27/2025 8:30 AM EDT Office Visit Dermatology [facility] [address] [facility] [place] [address] Luis F Mendez MD [address] [facility] [place] [address] Scheduled Procedures Name Priority Associated Diagnoses Date/Ti me COLONOSCOPY FLEXIBLE PROXIMA L DIAGNOSTIC Recall Encounter for screening colonoscopy Health Maintenance Due Date Last Done Comments Diabetic Eye Exam 09/01/2023 09/01/2022, , 12/15/2019, Additional history exists Albumin/Creatinine Ratio 01/28/2024 023, 06/05/2022, 03/13/2020, Additional history exists Adult Wellness Visit 02/19/2024 02/18/2023 COVID-19 Vaccine ( season) 2024 11/17/2022, 02/25/2022, 02/25/2022, Additional history exists HbA1c 08/09/2024 02/08/2024, 07/06/2023, 01/27/2023, Additional history exists CKD PHOS USE SMARTSET 11787 08/26/2024 08/26/2023 GFR 01/24/2025 07/27/2024, 04/0 06/2024, 10/23/2023, Additional history exists Diabetic Foot Exam 02/07/2025 02/08/2024, 1 , 02/28/2021, Additional history exists Depression Screening 06/10/2025 06/10/2024 CKD HGB USE SMARTSET 74218 07/27/202507/27, 10/23/2023, 08/26/2023, Additional history exists DTap/Tdap Vaccines (3 - Td or Tdap) 02/03/2033 02/03/2023, 10/21/2011, 11/09/2003 Pneumococcal Vaccine: 65+ Years Completed 12/24/2015, 07/23/2011 Zoster Vaccines Completed 03/13/2020, 11/03, 08/03/2012 Influenza Vaccine (FLU shot) Completed , 07/13/2023, 08/05/2022, Additional history exists HPV (Gardasil) Vaccine Aged Out No lo [...] Sebastian Spouse Health Care Agent Care Teams Inlayer Silver Relationship Specialty Start Date End Date James Maria DO [address] [place] [address] PCP - General Family Medicine 06/07/18 documented as of this encounter
--- OUTSIDE RECORDS SUMMARY | 2024-09-06 23:35 | External Medical Summary | Summary of Care ---
Author Name Unknown Organization [facility] Address [address] [place] [address] Phone [phone] Care Team Providers Care Friction Welding Machine Operator Name Role Phone Rylan Mariar Sophy Primary Care Provider Reason for Visit * Reason Comments Appointment Encounter Details Date Type Department Care Team (Late st Contact Info) Description 08/25/2024 6:10 PM EDT Pharmacy Pharmacy, [facility] [address] [place] [address] [facility] [address] [place] [address] Type 2 diabetes mellitus with hemoglobin A1c goal of less than 8.0% ([facility])* Allergies Active Allergy Reactions Criticality Noted Date Comments Lisinopril Edema face/lips/tongue High 04/05/2018 documented as of this encounter (statuses as of 08/25/2024) Medications Medication Sig Dispensed Refills Start Date [...] 0.3 MLIndications:Type 2 diabetes mellitus with polyneuropathy ([facility]),Type 2 diabetes mellitus with hemoglobin A1c [...] hands 100 g 1 3 Active Pen [place] 32G X 4 MM Use as directed. [...] Oral Tablet (Eliquis)Indications: PAF (paroxysmal atrial fibrillation) ([facility]) Take 1 Tablet by mouth in the morning and 1 Tablet before bedtime. 180 Tablet 3 4 Active Finasteride 5 MG Oral Tablet (Proscar) Take 1 Tablet by mouth in the morning. Active Pen [place] 32G X 4 MMIndications:Type 2 diabetes mellitus with hemoglobin A1c goal of less than 8.0% ([facility]) Use as directed. Use to inject [...] the morning. 90 Tablet 3 4 Active Lender SentinelTouch Delica Lancets 33G Use as directed 4 [...] as of this encounter (statuses as of 08/25/2024) Active Problems Problem Noted Date Diagnosed Date [...] fat layer exposed 01/09/2022 Atherosclerosis of [place] co 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 angina pectoris 01/09/2022 [...] as of this encounter (statuses as of 08/25/2024) Resolved Problems Problem Noted Date Diagnosed Date [...] media 02/09/2020 Overview: Acute. Chronic mastoiditis 03/13/20 20 Allergic rhinitis 10/21/2018 Dysfunction of eustachian tube 10/21/2018 documented as of this encounter (statuses as of 08/25/2024) Immunizations Name Administration Dates Next Due COVID-19 [...] as of this encounter Progress Notes * Roxanne Maria CPhT - 08/25/2024 8:12 AM EDT Patient Phone Numbers Left message with patient's spouse to schedule [facility] appointment for diabetes management. Patient unable to schedule at time of call. Xanodyneer message sent --no Clinic will follow up again in 4 week(s). [Attempt # 2] Thank you, Roxanne Maria CPhT [facility] 08/25/2024,8:13 AM documented in this encounter Plan of Treatment Upcoming Encounters Date Type Department Care Team (Late st Contact Info) Description 09/22/2024 6:10 PM EST Pharmacy Pharmacy, [facility] [address] [place] [address] [facility] [address] [place] [address] 10/05/2024 11:40 AM EST Office Visit Podiatry [facility] [address] [place] [address] Kylie Burroughs DPM [address] [place] [address] [place] [address] 10/25/2024 1:20 PM EST Office Visit Family Practice [facility] [address] [place] [address] James Maria DO [address] [place] [address] 11/21/2024 2:30 PM EST Cardiac Studies Cardiac Studies, [facility] [address] [place] [address] 11/25/2024 9:30 AM EST Office Visit Audiology, [place] [address] [place] [address] Mary Merritt Au.D. [address] [place] [address] 11/25/2024 10:00 AM EST Office Visit Otolaryngology/Head & Neck/Facial Plastic Surgery [address] [place] [address] Jose Antonio Su MD [address] [place] [address] 11/30/2024 9:30 AM EST Office Visit Cardiology, [facility] [address] [place] [address] Shelley Russell PA-C [address] [place] [address] 02/27/2025 8:30 AM EDT Office Visit Dermatology [facility] [address] [facility] [place] [address] Luis F Mendez MD [address] [facility] [place] [address] Scheduled Procedures Name Priority Associated Diagnoses Date/Ti me COLONOSCOPY FLEXIBLE PROXIMA L DIAGNOSTIC Recall Encounter for screening colonoscopy Health Maintenance Due Date Last Done Comments Diabetic Eye Exam 09/01/2023 09/01/2022, , 12/15/2019, Additional history exists Albumin/Creatinine Ratio 01/28/2024 023, 06/05/2022, 03/13/2020, Additional history exists Adult Wellness Visit 02/19/2024 02/18/2023 COVID-19 Vaccine ( season) 2024 11/17/2022, 02/25/2022, 02/25/2022, Additional history exists HbA1c 08/09/2024 02/08/2024, 05/02, 01/27/2023, Additional history exists CKD PHOS USE SMARTSET 51433 08/26/2024 08/26/2023 GFR 01/24/2025 07/27/2024, 04/0 06/2024, 10/23/2023, Additional history exists Diabetic Foot Exam 02/07/2025 02/08/2024, 1 , 02/28/2021, Additional history exists Depression Screening 06/10/2025 06/10/2024 CKD HGB USE SMARTSET 33220 07/27/202507/27, 10/23/2023, 08/26/2023, Additional history exists DTap/Tdap [...] Agents on File Name Relationship Healthcare Agent [facility] jj Communication Farhana Merrittsafia Spouse Health Care Agent Care Teams Friction Welding Machine Operator Relationship Specialty Start Date End Date James Maria DO [address] [place] [address] PCP - General Family Medicine 06/07/18 documented as of this encounter
--- OUTSIDE RECORDS SUMMARY | 2024-09-06 23:35 | External Medical Summary | Summary of Care ---
Author Name Unknown Organization [facility] Address [address] [place] [address] Phone [phone] Care Team Providers Care Global Human Resources Director Name Role Phone James Maria DO Primary Care Provider Reason for Visit * Reason Onset Date Comments Advice 08/30/2024 Encounter Details Date Type Department Care Team (Late st Contact Info) Description 08/30/[address] [facility] [address] [place] [phone] James Maria DO [address] [place] [phone] Advice Allergies Active Allergy Reactions Criticality Noted Date Comments Lisinopril Edema face/lips/tongue High 04/05/2018 documented as of this encounter (statuses as of 08/31/2024) Medications Medication Sig Dispensed Refills Start Date [...] 0.3 MLIndications:Type 2 diabetes mellitus with polyneuropathy ([facility]),Type 2 diabetes mellitus with hemoglobin A1c goal [...] hands 100 g 1 3 Active Pen Charlo 32G X 4 MM Use as directed. [...] Oral Tablet (Eliquis)Indications: PAF (paroxysmal atrial fibrillation) ([facility]) Take 1 Tablet by mouth in the morning and 1 Tablet before bedtime. 180 Tablet 3 4 Active Finasteride 5 MG Oral Tablet (Proscar) Take 1 Tablet by mouth in the morning. Active Pen Charlo 32G X 4 MMIndications:Type 2 diabetes mellitus with hemoglobin A1c goal of less than 8.0% ([facility]) Use as directed. Use to inject insulin [...] as of this encounter (statuses as of 08/31/2024) Active Problems Problem Noted Date Diagnosed Date [...] layer exposed 01/09/2022 Atherosclerosis of [place] co 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 angina pectoris 01/09/2022 [...] as of this encounter (statuses as of 08/31/2024) Resolved Problems Problem Noted Date Diagnosed Date [...] as of this encounter (statuses as of 08/31/2024) Immunizations Name Administration Dates Next Due COVID-19 [...] t, Adjuvanted, 65+ YRS, PF, (Fluad) 08/22/2019 TD - Tetanus/Diptheria (ADULT) 11/09/2003 TDAP (age 10 and older)(Boostrix) 02/03/2023 TDAP, [...] Telephone Encounter - James Maria DO - 08/31/2024 12:20 PM EDT Historically this patient hasn't needed Pain control/pain meds - Please schedule into 40 min AP spot to discuss next avail * Telephone Encounter - Gualberto White OSA - 08/30/2024 3:41 PM EDT Vania from [facility] called in stating patient is finally willing to go to [facility] for further treatment. Patient is currently homeless. Needs a soon appointment with Dr. Maria or anyone in the office to start the process of getting patient help with pain management. Nothing available. If any questions, please call back Vania. [phone]. documented in this encounter Plan of Treatment Upcoming Encounters Date Type Department Care Team (Late st Contact Info) Description 09/22/2024 6:10 PM EST Pharmacy Pharmacy, [facility] [address] [facility] [place] [address] [facility] [address] [place] [address] 10/05/2024 11:40 AM EST Office Visit Podiatry [facility] [address] [facility] [place] [address] Kylie Burroughs DPM [address] [place] [address] [place] [address] 10/25/2024 1:20 PM EST Office Visit Family Practice [facility] 132 [facility] [place] [address] James Maria DO [facility] [place] [address] 11/21/2024 2:30 PM EST Cardiac Studies Cardiac Studies, [facility] 132 [facility] [place] [address] 11/25/2024 9:30 AM EST Office Visit Audiology, [place] [address] [place] [address] Mary Merritt Au.D. [address] [place] [address] 11/25/2024 10:00 AM EST Office Visit Otolaryngology/Head & Neck/Facial Plastic Surgery [address] [place] [address] Jose Antonio Su MD [address] [place] [address] 11/30/2024 9:30 AM EST Office Visit [facility], [facility] [address] Shelley Russell PA-C 132 [facility] [place] [address] 02/27/2025 8:30 AM EDT Office Visit Dermatology [facility] [place] [address] [place] [address] Luis F Mendez MD [address] [place] [phone] Scheduled Procedures Name Priority Associated Diagnoses Date/Ti [...] Additional history exists CKD PHOS USE SMARTSET 19865 08/26/2024 08/26/2023 GFR 01/24/2025 07/27/2024, 04/06/2024, 10/23/2023, Additional history exists Diabetic Foot Exam 02/07/2025 02/08/2024, 1 , 02/28/2021, Additional history exists Depression Screening 06/10/2025 06/10/2024 CKD HGB USE SMARTSET 05035 07/27/202507/27, 10/23/2023, 08/26/2023, Additional history exists DTap/Tdap [...] Agents on File Name Relationship Healthcare Agent [facility] Communication Farhanadiego Sebastian Spouse Health Care Agent Care Teams Global Human Resources Director Relationship Specialty Start Date End Date James Maria DO [address] [place] [address] PCP - General Family Medicine 06/07/18 documented as of this encounter
--- OUTSIDE RECORDS SUMMARY | 2024-09-06 23:35 | External Medical Summary | Summary of Care ---
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 Name Role Phone James Maria DO Primary Care Provider Reason for Visit * Reason Onset Date Comments Advice 08/30/2024 Encounter Details Date Type Department Care Team (Late st Contact Info) Description 08/30/2024 Telephone Family Practice [facility] [address] [place] [phone] Jmaes Maria DO [address] [place] [address] Advice Allergies Active Allergy Reactions Criticality Noted Date Comments Lisinopril Edema face/lips/tongue High 04/05/2018 documented as of this encounter (statuses as of 09/02/2024) Medications Medication Sig Dispensed Refills Start Date [...] 2 diabetes mellitus with polyneuropathy ([facility]),Type 2 diabetes mellitus with hemoglobin [...] hands 100 g 1 3 Active Pen [place] 32G X 4 MM Use as directed. [...] Oral Tablet (Eliquis)Indications: PAF (paroxysmal atrial fibrillation) ([facility]) Take 1 Tablet by mouth in the morning and 1 Tablet before bedtime. 180 Tablet 3 4 Active Finasteride 5 MG Oral Tablet (Proscar) Take 1 Tablet by mouth in the morning. Active Pen [place] 32G X 4 MMIndications:Type 2 diabetes mellitus with hemoglobin A1c goal of less than 8.0% ([facility]) Use as directed. Use to [...] as of this encounter (statuses as of 09/02/2024) Active Problems Problem Noted Date Diagnosed Date [...] layer exposed 01/09/2022 Atherosclerosis of [place] co 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 angina pectoris 01/09/2022 [...] as of this encounter (statuses as of 09/02/2024) Resolved Problems Problem Noted Date Diagnosed Date [...] as of this encounter (statuses as of 09/02/2024) Immunizations Name Administration Dates Next Due COVID-19 [...] Telephone Encounter - Celeste Maria OSA - 09/02/2024 8:12 AM EDT Left message for pt to call back and schedule appt with any provider * Telephone Encounter - Flavia Bernard OSA - 08/31/2024 12:25 PM EDT Left message for pt to call back and schedule appt with any provider * Telephone Encounter - James Maria DO - 08/31/2024 12:20 PM EDT Historically this patient hasn't needed Pain control/pain meds - Please schedule into 40 min AP spot to discuss next avail * Telephone Encounter - Gualberto White OSA - 08/30/2024 3:41 PM EDT Vania from [facility] called in stating patient is finally willing to go to [facility] for further treatment. Patient is currently homeless. Needs a soon appointment with Dr. Maria or anyone in the office to start the process of getting patient help with pain management. Nothing available. If any questions, please call back Vania. [phone]. documented in this encounter Plan of Treatment Upcoming Encounters Date Type Department Care Team (Late st Contact Info) Description 09/22/2024 6:10 PM EST Pharmacy Pharmacy, [facility] 132 [facility] [place] [address] [facility] [facility] 132 [facility] [place] [address] 10/05/2024 11:40 AM EST Office Visit Podiatry [facility] [address] [facility] [place] [address] Kylie Burroughs, [address] [place] [address] 10/25/2024 1:20 PM EST Office Visit Family Practice [facility] [address] [facility] [place] [address] James Maria DO 132 [facility] [place] [address] 11/21/2024 2:30 PM EST Cardiac Studies Cardiac Studies, [facility] [address] 11/25/2024 9:30 AM EST Office Visit Audiology, [place] [address] [place] [address] Mary Merritt Au.D. [address] [place] [address] 11/25/2024 10:00 AM EST Office Visit Otolaryngology/Head & Neck/Facial Plastic Surgery [address] [place] [address] Jose Antonio Su MD [address] [place] [address] 11/30/2024 9:30 AM EST Office Visit Cardiology, [facility] 132 [facility] [place] [address] Shelley Russell PA-C [address] [place] [address] 02/27/2025 8:30 AM EDT Office Visit Dermatology [employer] [address] [place] [address] Luis F Mendez MD 200 [facility] [place] [address] Scheduled Procedures Name Priority Associated Diagnoses Date/Ti me COLONOSCOPY FLEXIBLE PROXIMA L DIAGNOSTIC Recall Encounter for screening colonoscopy Health Maintenance Due Date Last Done Comments Diabetic Eye Exam 09/01/2023 09/01/2022, , 12/15/2019, Additional history exists Albumin/Creatinine Ratio 01/28/2024 023, 06/05/2022, 03/13/2020, Additional history exists Adult Wellness Visit 02/19/2024 02/18/2023 COVID-19 Vaccine ( season) 2024 11/17/2022, 02/25/2022, 02/25/2022, Additional history exists HbA1c 08/09/2024 02/08/2024, 0706/2023, 01/27/2023, Additional history exists CKD PHOS USE SMARTSET 17325 08/26/2024 08/26/2023 GFR 01/24/2025 07/27/2024, 04/0 06/2024, 10/23/2023, Additional history exists Diabetic Foot Exam 02/07/2025 02/08/2024, 1 , 02/28/2021, Additional history exists Depression Screening 06/10/2025 06/10/2024 CKD HGB USE SMARTSET 91515 07/27/202507/27, 10/23/2023, 08/26/2023, Additional history exists DTap/Tdap [...] Healthcare Agent [facility] p Communication aFrhana Sebastian Spouse Health Care Agent Care Teams Nuclear Power Plant Engineer Relationship Specialty Start Date End Date James Maria DO [address] [place] [address] PCP - General Family Medicine 06/07/18 documented as of this encounter
--- OUTSIDE RECORDS SUMMARY | 2024-09-06 23:35 | External Medical Summary | Summary of Care ---
Author Name Unknown Organization [facility] Address [address] [place] [address] Phone [phone] Care Team Providers Care Legal Consultant Name Role Phone Yariel Mariavor Sophy Primary Care Provider Reason for Referral * Precert (Diagnostic Medical) (Within 10 days (routine)) - Authorized Specialty Diagnoses / Procedures Referred By Contac t Referred To Contact Cardiac Studies Diagnoses Paroxysmal atrial fibrillation (HCC) Localized edema Nonrheumatic aortic valve stenosis Procedures ECHO, COMPLETE (2D), TRANS-THORACIC Shelley Russell PA-C [address] [place] [address] Referral ID Status Reason Start Date Expiration Date V isits Requested Visits Authorized [id number] Authorized Precert 10/26/2024 999 999 Reason for Visit * Reason Onset Date Comments Follow Up Medication Administration 07/27/2024 Flu an d/or Pneumo Inj Encounter Details Date Type Department Care Team (Late st Contact Info) Description 07/27/2024 3:00 PM EDT Office Visit Cardiology, [facility] [address] [place] [address] Shelley Russell PA-C [address] [place] [address] Paroxysmal atrial fibrillation (HCC)*; Localized edema; Nonrheumatic aortic valve stenosis; Need for prophylactic vaccination and inoculation against influenza Allergies Active Allergy Reactions Criticality Noted Date Comments Lisinopril Edema face/lips/tongue High 04/05/2018 documented as of this encounter (statuses as of 08/22/2024) Medications Medication Sig Dispensed Refills Start Date End Date Status ONETOUCH ULTRA BLUE STRP USE TO CHECK GLUCOSE 4 TIMES DAILY 100 Strip 11/13/19 17 Active Additional Information Patient not taking.Informant: Spouse, Reported on 07/27/2024 Sildenafil Citrate (VIAGRA) 50 MG TabletIndications:Im potence of organic origin Take 1 Tab by mouth as needed for Erectile Dysfunction. 5 Tab 6 08/24/20 17 Active Glucose Blood (ONETOUCH VERIO) STRP Use up to 4 times a day E11.9 300 Strip 3 08/24/20 17 Active Additional Information Patient not taking.Informant: Spouse, [...] 100 g 1 04/01/20 23 Active Pen [place] 32G X 4 MM Use as directed. Use to inject insulin up to 4 times daily. 30 Each 05/06/20 23 Active Additional Information Patient not taking.Reported on 07/27/2024 Ammonium Lactate 12 % External Cream Apply to both feet once daily. 280 g 5 09/30/20 23 Active Xultophy 100-3.6 UNIT-MG/ML Subcutaneous Solution Pen-injector (Insulin Degludec-Liraglutide ) Inject 15 Units under the skin at bedtime. 15 mL 5 11/05/19 24 Active Tamsulosin HCl 0.4 MG Oral Capsule (Flomax)Indications: BPH with obstruction/lower urinary tract symptoms TAKE ONE CAPSULE BY MOUTH EVERY MORNING 100 Capsule 2 12/29/19 24 025 Active Apixaban 5 MG Oral Tablet (Eliquis)Indications :PAF (paroxysmal atrial fibrillation) (HCC) Take 1 Tablet by mouth in the morning and 1 Tablet before bedtime. 180 Tablet 3 01/29/20 24 Active Finasteride 5 MG Oral Tablet (Proscar) Take 1 Tablet by mouth in the morning. Active Pen [place] 32G X 4 MMIndications:Type 2 diabetes mellitus with hemoglobin A1c goal of less than 8.0% (HCC) Use as directed. Use to inject insulin up to 4 times daily. 400 Each 3 02/08/20 Active Additional Information Patient not taking.Reported on 07/27/2024 Metoprolol Tartrate 25 MG Oral Tablet (Lopressor)Indicatio [...] times a day E11.9 1 Kit 05/10/20 Active Additional Information Patient not taking.Reported on 07/27/2024 OneTouch Verio In Vitro Strip (Glucose Blood)Indications:Ty pe 2 diabetes mellitus with stage 3b chronic kidney disease, with long-term current use of insulin (HCC) Use up to 4 times a day E11.9 300 Strip 3 05/10/20 Active Additional Information Patient not taking.Reported on 07/27/2024 Pantoprazole Sodium 40 MG Oral Tablet Delayed Release (Protonix)Indication s:Gastroesophageal reflux disease without esophagitis Take 1 Tablet by mouth in the morning. 90 Tablet 3 05/10/20 24 Active OneTouch Delica Lancets 33G Use as directed 4 times a day as needed for Hypoglycemia (low sugar) or Hyperglycemia (high sugar). 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 1 Each 07/14/20 24 Active Clindamycin HCl 300 MG Oral Capsule Take 1 Capsule by mouth in the morning and 1 Capsule at noon and 1 Capsule before bedtime. 21 Capsule 06/29/20 24 024 Discontinued documented as of this encounter (statuses as of 08/22/2024) Active Problems Problem Noted Date Diagnosed Date [...] with fat layer exposed 01/09/2022 Atherosclerosis of [place] co 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 angina pectoris 01/09/2022 [...] as of this encounter (statuses as of 08/22/2024) Resolved Problems Problem Noted Date Diagnosed Date [...] as of this encounter (statuses as of 08/22/2024) Immunizations Name Administration Dates Next Due COVID-19 [...] 06/10/2024 Does the household have a re lar [...] Sign Reading Time Taken Comments Blood Pressure 118/76 07/27/2024 2:54 PM EDT Pulse 58 07/27/2024 2:54 PM EDT Temperature - - Respiratory Rate - - Oxygen Saturation 96% 07/27/2024 2:54 PM EDT Inhaled Oxygen Concentration - - Weight 83.5 kg (184 lb) 07/27/2024 2:54 PM EDT Height - - Body Mass Index 32.2 08/26/2023 9:02 AM EDT documented in this encounter Progress Notes * Milana Ghotra CMA - 07/27/2024 3:41 PM EDT PRE - ADMINISTRATION DOCUMENTATION Are you experiencing any cold symptoms or fever? No Have you had Guillain-[place] Syndrome (an illness that causes paralysis) within the last 6 weeks? No Have you had the flu shot in the past? YES Have you ever had a reaction to the flu shot? No Milana Ghotra CMA, 07/27/2024 3:41 PM Immunization Administration Documentation Time Out Procedure Performed: Yes Patient Identified (Ask Name/Date of ): Yes Does the patient have a fever greater than 101 degrees today? No Patient allergic to latex? No VFC Stock: No Immunization(s) verified: Yes, Immunization Name: Flu, VIS Sheet(s) given: Yes Verified Side and Site: Yes Verified Shot(s) with Parent(s)/Patient: Yes * Shelley Russell PA-C - 07/27/2024 3:10 PM EDT Cardiology F/U: HPI: Patient is a 79 year old male here today for routine cardiology f/u. Last clinic evaluation approx 1.5 years ago with the undersigned. Cardiac Problems: Paroxysmal atrial fibrillation [id number] VASc 4 (age, HTN, DM II), urgent DCCV 07/2023 while admitted to ICU Moderate aortic stenosis Very hard of hearing Chronic diastolic CHF DM II HTN HLD Recently patient saw PCP and noted increased swelling. He was to start low dose lasix but never did. He presents today with his . Patient is extremely hard of hearing Ongoing edema noted. They aregoing to wound center as well. No chest pain, shortness of breath, palpitations, dizziness, syncope or near syncope. No fever, chills, cough, hematochezia, melena, or hemoptysis. Review of Systems: See HPI for pertinent positives. All others negative, other than those noted in HPI. 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 Hoarding behavior Paroxysmal atrial fibrillation (HCC) Moderate aortic stenosis Overweight (BMI 25.0-29.9) Unsteady gait when walking Cellulitis of toe of left foot Chronic heart failure with preserved ejection fraction ([facility]) Medical home patient encounter Encounter for long-term (current) insulin use (HCC) Chronic kidney disease, stage 3b (HCC) Type 2 diabetes mellitus with stage 3b chronic kidney disease, 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 5 Tab 6 Fluorouracil 5 % External Cream (Efudex) Apply [...] on hands twice daily 15 g 1 Silver sulfADIAZINE 1 % External Cream (Silvadene) Apply to wounds on hands 100 g 1 Xultophy 100-3.6 UNIT-MG/ML Subcutaneous Solution Pen-injector (Insulin [...] BY MOUTH EVERY DAY 90 Tablet 1 Pantoprazole Sodium 40 MG Oral Tablet Delayed Release (Protonix) Take 1 Tablet by mouth in the morning. 90 Tablet 3 OneTouch Delica Lancets 33G Use as directed 4 times a day as needed for Hypoglycemia (low sugar) orHyperglycemia (high sugar). 300 Each 5 ONETOUCH ULTRA BLUE STRP USE TO CHECK GLUCOSE 4 TIMES DAILY (Patient not taking: Reported on 07/27/2024) 100 Strip 0 Glucose Blood (ONETOUCH VERIO) STRP Use up to 4 times a day E11.9 (Patient not taking: Reported on 07/27/2024) 300 Strip 3 Ajitona-Izrpfc-Uofck Pertussis 5-2.5-18.5 LF-MCG/0.5 Suspension Prefilled Syringe (Boostrix) Administer 0.5ml intramuscularly as directed (Patient not taking: Reported on 07/27/2024) 0.5 mL 0 Pen [place] 32G X 4 MM Use as directed. Use to inject insulin up to 4 times daily. (Patient not taking: Reported on 07/27/2024) 30 Each 0 Ammonium Lactate 12 % External Cream Apply to both feet once daily. 280 g 5 Pen [place] 32G X 4 MM Use as directed. Use to inject insulin up to 4 times daily. (Patient not taking: Reported on 07/27/2024) 400 Each 3 OneTouch Verio w/Device Kit Use up to 4 times a day E11.9 (Patient not taking: Reported on 07/27/2024) 1 Kit 0 OneTouch Verio In Vitro Strip (Glucose Blood) Use up to 4 times a day E11.9 (Patient not taking: Reported on 07/27/2024) 300 Strip 3 DIURETIC TITRATION PLAN If no improvement on day 3, contact heart failure managing provider. 1 Each0 No current facility-administered medications for this visit. Objective BP 118/76 | Pulse 58 | Wt 83.5 kg (184 lb) | SpO2 96% | BMI 32.20 kg/m | BSA 1.93 m Wt Readings from Last 3 Encounters: 07/27/24 83.5 kg (184 lb) 06/10/24 83.5 kg (184 lb) 05/10/24 80.4 kg (177 lb 3 oz) General: NAD. A+Ox3. HEENT: Normocephalic. Atraumatic. PERRL. EOMI. Conjunctiva and sclera clear. NECK: No carotid bruits. No JVD. Carotid upstrokes are brisk. Heart: RRR. S1 and S2 noted without murmur, rubs, gallops. PMI non displaced. Lungs: Clear to auscultation and percussion. No wheezes, rhonchi, rales. Abdomen: Normal bowel sounds. Soft. Nontender. No masses or organomegaly. No abdominal bruits. Extremities: 2+ B/L edema. Legs wrapped but seeping through wraps B/L. No clubbing or cyanosis. Pulses: radial=2/4, posterior tibial=2/4, dorsalis pedis = 2/4. NEURO: No focal deficits. PSYCH: Normal. Cardiac studies/labs: EKG performed today and reviewed personally: NSR with sinus arrhythmia RBBB LAFB 07/26/23 at [facility] SB 59 bpm QTc 562 ms 07/25/23 at [facility] NSR 65 bpm QTc 538 ms 07/24/23 at [facility] NSR 73 bpm QTc 515 ms 07/24/23 at [facility] A Fib RVR 166 bpm QTc 501 ms 11/17/22 NSR 69 bpm QTc 477 ms Echocardiograms 11/03/23 The examination is adequate to evaluate the referral indication. The LV wall thickness is mildly increased (concentric). The left ventricular wall motion is normal. The qualitative LV ejection fraction is 55-59% (normal). The left atrium is mildly enlarged (35-41 ml/m^2). The left ventricular diastolic function is moderately abnormal (grade II). Moderate aortic valve stenosis is present. Peak CW velocity=3.5 m/s, Mean gradient 29 mm Hg, DI=0.35, GAB=1.1-1.2 cm2. Mild tricuspid regurgitation is present. The estimated pulmonary artery systolic pressure is 40 mm Hg (mildly elevated). Compared to the report of the previous study dated 12/30/2022, there has been a subtle increase in the gradient across the aortic valve, however moderate aortic stenosis is still present. 07/24/23 at [facility] Technically difficult study Sinus rhythm with rates in the 70's during the study Mild concentric LVH No regional wall Motion abnormalities EF 55% RV normal in size and function LA mildly dilated Mild pulmonary hypertension present PA SP estimated to be 45 mm Hg Grade 2 diastolic dysfunction The aortic valve is severely calcified Moderate to borderline severe aortic stenosis present peak gradient 43.9 mmHg with V2 max 330.4 cm/sec 12/30/22 The examination is adequate to evaluate the [...] report of the prior study performed at [facility] on 11/09/2021, the aortic valve velocities have progressed. Impression 79 year old male HTN Chronic diastolic CHF Paroxysmal atrial fibrillation [id number] VASc 4 (age, HTN, DM II, CHF) Moderate aortic stenosis Very hard of hearing DM II HLD Edema likely venous insufficiency Plan: Start lasix 20 mg daily as previously recommended Patient and agreeable. Update echo at 1 year interval given moderate Continue with wound clinic -continue Apixaban and metoprolol and atorvastatin -repeat labs in about 2 weeks after initiation of diuretic Low sodium diet The patient is to continue all current medications as listed above. No changes were made at today'svisit. Patient is being evaluated in the cardiology office for ongoing care/risk management for ; HTN; PAF; edema. I spent a total of 30 minutes on the date of service in preparation, delivery, and documentation ofthe care provided to Selvin Sebastian excluding any time spent in the performance of separately billed services. The patient agrees to the above plan and will call with additional questions or concerns. ER with all emergencies advised. Follow-up: Return in about 3 months (around 10/26/2024). | Check-out note: Blood work today Schedule echo in Nov 2024 Follow up after echo Shelley Russell PA-C Department of Cardiology Text in this note was generated using an ambient documentation service. I discussed the use of a device to record and summarize our discussion today. All persons present during the encounter consented to its use. This chart was completed in part utilizing [employer] Speech Voice Recognition Software. Grammatical errors, random [...] documented in this encounter Procedure Notes * Cleve Mathis MD - 07/27/2024 3:06 PM EDTAssociated Order(s): EKG REASON FOR STUDY: routine;routine CONCLUSIONS: Sinus rhythm with marked sinus arrhythmia Right bundle branch block Left anterior fascicular block Bifascicular block Left ventricular hypertrophy Cannot rule out Anteroseptal infarct , age undetermined Abnormal ECG When compared with ECG of 17-Nov-2022 12:54, Minimal criteria for Anteroseptal infarct are now Present ST elevation now present in Anterior leads Nonspecific T wave abnormality no longer evident in Anterior leads Ventricular Rate: 67 Atrial Rate: 67 ID Interval: 164 QRS Duration: 126 QT/QTc: 470/496 ms P-R-T Abernathy: 44 : -48 : 29 degrees documented in this encounter Nursing Notes * Milana Ghotra CMA - 07/27/2024 2:52 PM EDT Examination Room: 1 Name: Selvin Sebastian Date of : (1945) Reason for Visit: 1 yr Interim Hospitalization(s): none Problems/Concerns: denied Chest Pain/SOB: denied chest pain, but does have SOB all the time [employer] is a way you can talk to [...] Description 08/25/2024 6:10 PM EDT Pharmacy Pharmacy, [facility] [address] [place] [address] [facility] [address] [facility] [place] [address] 10/05/2024 11:40 AM EST Office Visit [facility] [address] Kylie Burroughs, M [address] [facility] [place] [address] 10/25/2024 1:20 PM EST Office Visit [facility] [address] James Maria DO [address] [place] [address] 11/21/2024 2:30 PM EST Cardiac Studies Cardiac Studies, [facility] [address] [place] [address] 11/25/2024 9:30 AM EST Office Visit Audiology, [place] [address] [place] [address] Mary Merritt Au.D. [address] [place] [address] 11/25/2024 10:00 AM EST Office Visit Otolaryngology/Head & Neck/Facial Plastic Surgery [address] [place] [address] Jose Antonio Su MD [address], [place] [id number] 11/30/2024 9:30 AM EST Office Visit Cardiology, [facility] [address] [place] [address] Shelley Russell PA-C [address] [place] [address] 02/27/2025 8:30 AM EDT Office Visit Dermatology [place] [place] [address] [facility] [place] [address] Luis F Mendez MD [address] [facility] [place] [address] Scheduled Orders Name Type Priority Associated Diagnoses Orde r Schedule ECHO, COMPLETE (2D), TRANS-THORACIC Echocardiology Routine Paroxysmal atrial fibrillation (HCC) Localized edema Nonrheumatic aortic valve stenosis Expected: 10/26/2024 (Approximate), Expires: 07/27/2025 Scheduled Procedures Name Priority Associated Diagnoses Date/Ti me COLONOSCOPY FLEXIBLE PROXIMA L DIAGNOSTIC Recall Encounter for screening colonoscopy Health Maintenance Due Date Last Done Comments Diabetic Eye Exam 09/01/2023 09/01/2022, , 12/15/2019, Additional history exists Albumin/Creatinine Ratio 01/28/202401/27/2 023, 06/05/2022, 03/13/2020, Additional history exists Adult Wellness Visit 02/19/2024 02/18/2023 COVID-19 Vaccine ( season) 2024 11/17/2022, 02/25/2022, 02/25/2022, Additional history exists HbA1c 08/09/2024 02/08/2024, 0706/2023, 01/27/2023, Additional history exists CKD PHOS USE SMARTSET 75187 08/26/2024 08/26/2023 GFR 01/24/2025 07/27/2024, 04/0 06/2024, 10/23/2023, Additional history exists Diabetic Foot Exam 02/07/2025 02/08/2024, 1 , 02/28/2021, Additional history exists Depression Screening 06/10/2025 06/10/2024 CKD HGB USE SMARTSET 67118 07/27/202507/27, 10/23/2023, 08/26/2023, Additional history exists DTap/Tdap [...] Procedure Name Priority Date/Time Associated Diagnosis Comments ID ECG ROUTINE ECG W/LEAST 12 LDS W/I&R Routine 07/27/2024 3:06 PM EDT Paroxysmal atrial fibrillation (HCC) documented in this encounter Results * (ABNORMAL) CBC (07/27/2024 4:00 PM EDT) WBC 10.32 4.00 - 10.80 K/uL 07/27/2024 10:58 PM EDT LABORATORY [facility] RBC 3.70 4.50 - 5.25 M/uL 07/27/2024 10:58 PM EDT LABORATORY [facility] HGB 10.5(L) 14.0 - 16.8 g/dL 07/27/2024 10:58 PM EDT LABORATORY [facility] HCT 33.4(L) 40.0 - 48.4 % 07/27/2024 10:58 PM EDT LABORATORY [facility] MCV 90.3 82.0 - 99.5 fL 07/27/2024 10:58 PM EDT LAB[facility]AT[facility] MCH 28.4 27.0 - 34.0 pg 07/27/2024 10:58 PM EDT LAB[facility]ATORY [facility] MCHC 31.4 32.0 - 36.0 g/dL 07/27/2024 10:58 PM EDT LAB[facility]ATORY [facility] RDW 13.4 11.5 - 15.5 % 07/27/2024 10:58 PM EDT LABORATORY [facility] PLT 283 140 - 400 K/uL 07/27/2024 10:58 PM EDT LABORATORY [facility] MPV 10.7 6.6 - 11.1 fL 07/27/2024 10:58 PM EDT LABORATORY [facility] nRBCs 0 <=0 /100 WBCs 07/27/2024 10:58 PM EDT LABORATORY [facility] Blood Venous blood specimen / Unknown Venipuncture / Unknown 07/27/2024 4:00 PM EDT 07/27/2024 4:00 PM EDT Shelley Russell PA-C LAB BLOOD ALISA LEE Performing Organization Address [facility] Co de Phone Number LABORATORY [address] [address] * (ABNORMAL) BNP, NT-PRO (07/27/2024 4:00 PM EDT) BNP, NT-Pro 917(H) <300 pg/mL 07/28/2024 1:24 AM EDT LABORATORY [facility] Blood Venous blood specimen / Unknown Venipuncture / Unknown 07/27/2024 4:00 PM EDT 07/27/2024 4:00 PM EDT Narrative LABORATORY [facility] - 07/28/2024 1:24 AM EDT Exclude Heart Failure: <300 pg/mL Diagnose Heart Failure: Age <50 yr: >450 pg/mL 50-75 yr: >900 pg/mL >75 yr: >1800 pg/mL GFR is 30-59 mL/min: >1200 pg/mL or Age-adjusted values GFR <30 mL/min: do not use, not reliable Prognostic threshold: 1000 pg/mL Shelley Russell PA-C LAB BLOOD [place] LEE Performing Organization Address [facility] Co de Phone Number LABORATORY [address] [address] * (ABNORMAL) BASIC METABOLIC PANEL (07/27/2024 4:00 PM EDT) BUN 21(H) 6 - 20 mg/dL 07/28/2024 1:44 AM EDT LABORATORY GM CREATININE 1.7(H) 0.6 - 1.2 mg/dL 07/28/2024 1:44 AM EDT LABORATORY GM EGFR 42(L) >=60 mL/min 07/28/2024 1:44 AM EDT LABORATORY C Comment:eGFR is calculated b ased on the CKD-EPI 2020 equation. SODIUM 134(L) 135 - 146 mmol/L 07/28/2024 1:44 AM EDT LABORATORY [facility] POTASSIUM 4.5 3.5 - 5.1 mmol/L 07/28/2024 1:44 AM EDT LABORATORY [facility] CHLORIDE 98 98 - 107 mmol/L 07/28/2024 1:44 AM EDT LABORATORY C CO2 26 22 - 32 mmol/L 07/28/2024 1:44 AM EDT LABORATORY C ANION GAP 10 7 - 15 mmol/L 07/28/2024 1:44 AM EDT LABORATORY [facility] GLUCOSE 344(H) 70 - 120 mg/dL 07/28/2024 1:44 AM EDT LABORATORY C CALCIUM 8.7 8.4 - 10.2 mg/dL 07/28/2024 1:44 AM EDT LABORATORY [facility] Blood Venous blood specimen / Unknown Venipuncture / Unknown 07/27/2024 4:00 PM EDT 07/27/2024 4:00 PM EDT Shelley Russell PA-C LAB BLOOD [place] [facility] Organization Address City/State/[facility] Co de Phone Number LABORATORY [facility] [address] [place] [address] * EKG (07/27/2024 3:06 PM EDT) 07/27/2024 3:06 PM EDT Narrative Procedure Note Cleve Mathis MD - 07/27/2024 3:06 PM EDT REASON FOR STUDY: routine;routine CONCLUSIONS: Sinus rhythm with marked sinus arrhythmia Right bundle branch block Left anterior fascicular block Bifascicular block Left ventricular hypertrophy Cannot rule out Anteroseptal infarct , age undetermined Abnormal ECG When compared with ECG of 17-Nov-2022 12:54, Minimal criteria for Anteroseptal infarct are now Present ST elevation now present in Anterior leads Nonspecific T wave abnormality no longer evident in Anterior leads Ventricular Rate: 67 Atrial Rate: 67 ID Interval: 164 QRS Duration: 126 QT/QTc: 470/496 ms P-R-T Abernathy: 44 : -48 : 29 degrees Shelley Russell PA-C EKG [employer] CARDIOLOGY documented in this encounter Visit Diagnoses Diagnosis Paroxysmal atrial fibrillation (HCC)- Primary Atrial fibrillation Localized edema Edema Nonrheumatic aortic valve stenosis Aortic valve disorders Need for prophylactic vaccination and inoculation against influenza documented in this encounter Advance Directives Healthcare Agents on File Name Relationship Healthcare Agent [facility] Communication Farhana Sebastian Spouse Health Care Agent Care Teams Legal Consultant Relationship Specialty Start Date End Date James Maria DO [address] [place] [address] PCP - General Family Medicine 06/07/18 documented as of this encounter
--- OUTSIDE RECORDS SUMMARY | 2024-09-06 23:35 | External Medical Summary | Summary of Care ---
Author Name Unknown Organization [facility] Address [address] [place] [address] Phone [phone] Care Team Providers Care Data Manager Name Role Phone James Maria DO Primary Care Provider Reason for Visit * Reason Onset Date Comments Advice 08/30/2024 Encounter Details Date Type Department Care Team (Late st Contact Info) Description 08/30/2024 Telephone Family Practice [facility] [address] [place] [phone] James Maria DO [address] [place] [address] Advice Allergies Active Allergy Reactions Criticality Noted Date Comments Lisinopril Edema face/lips/tongue High 04/05/2018 documented as of this encounter (statuses as of 09/05/2024) Medications Medication Sig Dispensed Refills Start Date [...] 2 diabetes mellitus with polyneuropathy ([facility]),Type 2 diabetes mellitus with hemoglobin A1c goal of less than 8.0% ([facility]) Use up to 4 x a [...] hands 100 g 1 3 Active Pen [place] 32G X 4 MM Use as directed. [...] Oral Tablet (Eliquis)Indications: PAF (paroxysmal atrial fibrillation) ([facility]) Take 1 Tablet by mouth in the morning and 1 Tablet before bedtime. 180 Tablet 3 4 Active Finasteride 5 MG Oral Tablet (Proscar) Take 1 Tablet by mouth in the morning. Active Pen [place] 32G X 4 MMIndications:Type 2 diabetes mellitus [...] as of this encounter (statuses as of 09/05/2024) Active Problems Problem Noted Date Diagnosed Date [...] with fat layer exposed 01/09/2022 Atherosclerosis of [place] co 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 angina pectoris 01/09/2022 [...] as of this encounter (statuses as of 09/05/2024) Resolved Problems Problem Noted Date Diagnosed Date [...] as of this encounter (statuses as of 09/05/2024) Immunizations Name Administration Dates Next Due COVID-19 [...] Telephone Encounter - Beverly Storey LPN - 09/05/2024 1:30 PM EST Patient's EC Farhana is aware and verbalized understanding. Pt is homeless. Has not had bandages changed since Thursday. Is incontinent of BM. Pt has not got out of his car since Thursday. Wants to get [facility] to [facility] as possible. Is asking if the pt should go to the ER? No acute appointments available. Next return in not until 09/22. Called PCP office, spoke with Margaret and is agreeable with the pt going to the ER for wound care and to also schedule next available 40 minute appt in [facility]. Farhana aware and agreeable, appt was scheduled 09/07/24 and will cancel is pt is placed to SNF via ER. RENEI. * Telephone Encounter - Celeste Maria OSA [...] - 08/30/2024 3:41 PM EDT Vania from [facility] called in stating patient is finally willing to go to [facility] for further treatment. Patient is currently homeless. Needs a soon appointment with Dr. Maria or anyone in the office to start the process of getting patient help with pain management. Nothing available. If any questions, please call back Vania. [phone]. documented in this encounter Plan of Treatment Upcoming Encounters Date Type Department Care Team (Late st Contact Info) Description 09/07/2024 10:20 AM EST Office Visit [facility] [place] [address] Benjamin Lennon CRNP [address] [place] [phone] 09/22/2024 6:10 PM EST Pharmacy Pharmacy, [facility] 132 [facility] [place] [address] [facility] [place] 132 [facility] [place] [address] 10/05/2024 11:40 AM EST Office Visit Podiatry [facility] 132 [facility] [place] [address] Kylie Burroughs, N[address] [place] [address] 10/25/2024 1:20 PM EST Office Visit [facility] [place] [address] James Maria DO [facility] [place] [place] [address] 11/21/2024 2:30 PM EST Cardiac Studies Cardiac Studies, [facility] [address] [place] [address] 11/25/2024 9:30 AM EST [facility] [address] [place] [address] Mary Merritt Au.D. [address] [place] [address] 11/25/2024 10:00 AM EST Office Visit Otolaryngology/Head & Neck/Facial Plastic Surgery [address] [place] [address] Jose Antonio Su MD [address] [place] [address] 11/30/2024 9:30 AM EST Office Visit Cardiology, [facility] [place] [address] Shelley Russell PA-C 132 [facility] [place] [address] 02/27/2025 8:30 AM EDT Office Visit Dermatology [facility] 200 [facility] [place], [place] [address] Luis F Mendez MD [address] [facility] [place] [address] Scheduled Procedures Name Priority Associated Diagnoses Date/Ti [...] Additional history exists CKD PHOS USE SMARTSET 18821 08/26/2024 08/26/2023 GFR 01/24/2025 07/27/2024, 04/0 06/2024, 10/23/2023, Additional history exists Diabetic Foot Exam 02/07/2025 02/08/2024, 1 , 02/28/2021, Additional history exists Depression Screening 06/10/2025 06/10/2024 CKD HGB USE SMARTSET 57696 07/27/202507/27, 10/23/2023, 08/26/2023, Additional history exists DTap/Tdap [...] File Name Relationship Healthcare [facility] Farhana Sebastian Spouse Health Care Agent Care Teams Data Manager Relationship Specialty Start Date End Date James Maria DO [address] [place] [address] PCP - General Family Medicine 06/07/18 documented as of this encounter
--- OUTSIDE RECORDS SUMMARY | 2024-09-06 23:35 | External Medical Summary | Summary of Care ---
Author Name Unknown Organization [facility] Address [address] [place] [address] Phone [phone] Care Team Providers Care Correctional Supply Supervisor Name Role Phone James Maria DO Primary Care Provider Reason for Visit * Reason Onset Date Comments Advice 08/30/2024 Encounter Details Date Type Department Care Team (Late st Contact Info) Description 08/30/2024 Telephone Family Practice [facility] [address] [place] [phone] James Maria DO [address] [place] [phone] Advice Allergies Active Allergy Reactions Criticality Noted [...] MLIndications:Type 2 diabetes mellitus with polyneuropathy ([facility]),Type 2 diabetes mellitus with hemoglobin A1c goal of less than 8.0% ([facility]) Use up to 4 x [...] hands 100 g 1 3 Active Pen [place] 32G X 4 MM Use as directed. [...] Tablet (Eliquis)Indications: PAF (paroxysmal atrial fibrillation) ([facility]) Take 1 Tablet by mouth in the morning and 1 Tablet before bedtime. 180 Tablet 3 4 Active Finasteride 5 MG Oral Tablet (Proscar) Take 1 Tablet by mouth in the morning. Active Pen [place] 32G X 4 MMIndications:Type 2 diabetes mellitus with hemoglobin A1c goal of less than 8.0% ([facility]) Use as directed. Use to inject [...] with fat layer exposed 01/09/2022 Atherosclerosis of [place] co 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 angina pectoris 01/09/2022 [...] encounter Miscellaneous Notes * Telephone Encounter - Flavia Bernard OSA [...] - 08/30/2024 3:41 PM EDT Vania from [facility] called in stating patient is finally willing to go to [facility] for further treatment. Patient is currently homeless. Needs a soon appointment with Dr. Maria or anyone in the office to start the process of getting patient help with pain management. Nothing available. If any questions, please call back Vania. [phone]. documented in this encounter Plan of Treatment Upcoming Encounters Date Type Department Care Team (Late st Contact Info) Description 09/22/2024 6:10 PM EST Pharmacy Pharmacy, [facility] 132 [facility] [place] [address] [facility] [address] [place] [address] 10/05/2024 11:40 AM EST Office Visit Podiatry [facility] 132 [place] [address] Kylie Burroughs, DPMarg[address] [place] [address] 10/25/2024 1:20 PM EST Office Visit Family Practice [facility] [address] [place] [address] James Maria DO 132 [place] [address] 11/21/2024 2:30 PM EST Cardiac Studies Cardiac Studies, [facility] [address] [place] [address] 11/25/2024 9:30 AM EST Office Visit Audiology, [place] [address] [place] [address] Mary Merritt Au.D. [address] [place] [address] 11/25/2024 10:00 AM EST Office Visit Otolaryngology/Head & Neck/Facial Plastic Surgery [address] [place] [address] Jose Antonio Su MD [address] [place] [address] 11/30/2024 9:30 AM EST Office Visit Cardiology, [facility] [address] [place] [address] Shelley Russell PA-C 132 [place] [address] 02/27/2025 8:30 AM EDT Office Visit Dermatology [facility] [address] [place] [address] Luis F Mendez MD [address] [place] [phone] Scheduled Procedures Name Priority Associated Diagnoses Date/Ti [...] Additional history exists CKD PHOS USE SMARTSET 85500 08/26/2024 08/26/2023 GFR 01/24/2025 07/27/2024, 04/0 06/2024, 10/23/2023, Additional history exists Diabetic Foot Exam 02/07/2025 02/08/2024, 1 , 02/28/2021, Additional history exists Depression Screening 06/10/2025 06/10/2024 CKD HGB USE SMARTSET 18059 07/27/202507/27, 10/23/2023, 08/26/2023, Additional history exists DTap/Tdap [...] Sebastian Spouse Health Care Agent Care Teams Correctional Supply Supervisor Relationship Specialty Start Date End Date James Maria DO [address] [place] [address] PCP - General Family Medicine 06/07/18 documented as of this encounter
--- OUTSIDE RECORDS SUMMARY | 2024-09-06 23:35 | External Medical Summary | Continuity of Care Document ---
Author Name Unknown [facility] [address] [place] [address] [place] [phone] Care Team Providers Care Transit Bus Operator Name Role Phone James Maria Primary Care Physician [phone] Encounter [facility] [id number] Date(s): 08/25/24 - 08/25/24 [facility] [address] [place] [address] [facility] [address] [place] [address] [phone] Encounter Diagnosis Charcot joint of right foot(Discharge Diagnosis) - 08/25/24 Discharge Disposition: Home or Self Care Attending Physician: GLORIA Wan, Jonathan Abdalla Referring Physician: DO Maria Trevor S Allergies, Adverse Reactions, Alerts Substance Criticality Severity Reaction Reaction Severity Status hydrochlorothiazide-triamter en e swelling Active Medications atorvastatin 40 mg oral tablet Start: 05/19/22 1:36:00 PM EDT Start Date: 05/19/22 Status: Ordered Eliquis 5 mg oral tablet Start: 05/19/22 1:35:00 PM EDT, 1 tab, PO, bid Start Date: 05/19/22 Status: Ordered furosemide 40 mg oral tablet Start: 05/19/22 1:34:00 PM EDT Start Date: 05/19/22 Status: Ordered metFORMIN 500 mg oral tablet Start: 05/19/22 1:34:00 PM EDT, 1 tab, PO, bid Start Date: 05/19/22 Status: Ordered metoprolol tartrate Start: 05/19/22 1:36:00 PM EDT Start Date: 05/19/22 Status: Ordered metroNIDAZOLE Start: 05/19/22 1:36:00 PM EDT Start Date: 05/19/22 Status: Ordered tamsulosin 0.4 mg oral capsule Start: 05/19/22 1:34:00 PM EDT Start Date: 05/19/22 Status: Ordered Mental Status 08/25/24 Barriers to Learning one year Other: Mandatory Health Literacy Documentation Yes Health Literacy Communication Barriers N ever Primary Language [place] Problem List Condition Confirmation Course Effective Dates Status Health St atus Informant Diabetic foot ulcer Confirmed Active Puncture wound of foot, right Confirmed Active Diagnosis Diagnosis Type Effective Dates Health Status Cl inical Service Informant Foot pain, left 08/25/24 Non-Specified Charcot joint of right foot Discharge Diagnosis 08/25/24 Non-Specified Results Radiology Reports * Exam Date Time Procedure Performing Provider Status 08/25/24 9:56 AM XR Foot Complete 3+ Views Right Annabella Gold; Final Notes: (XR Foot Complete 3+ Views Right) Reason For Exam: right foot pain XR Foot Complete 3+ Views Right EXAMINATION: XR Foot Complete 3+ Views Left, XR Foot Complete 3+ Views Right CLINICAL HISTORY: M79.672: Pain in left foot; M79.672: Pain in left foot; left foot COMPARISON: None FINDINGS: AP, oblique and lateral views of the right foot. Radiographs show talocalcaneal dislocation with osseous fragmentation and the soft tissue swelling. Healed fractures are noticed in the right 3rd to 5th metatarsal necks. Healed fracture of the proximal phalanx of the hallux is noticed. Mild degenerative changes are noticed in the hallux MTP joint. There is diffuse osseous demineralization. AP, oblique and lateral views of the left foot. There is a severe hallux valgus with lateralizationof the hallux sesamoids. 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 Two screws areplaced in the left first metatarsal. Postsurgical changes related to the arthrodesis of the second,third and fourth PIP joint stabilized with intramedullary fusion devices. Arthrodeses of the secondand third PIP joints appear to be healed. Status post resection arthroplasty in the fourth and fifth PIP joints. No hardware complication. There is varus deformity of the second to fourth toes through the MTP joints. Mild osteoarthritis of the left ankle is noticed with anterior tibial osteophyte. There is talar beaking, indicating abnormal subtalar motion. Mild degenerative changes of the subtalar joint are noticed. Os trigonum is present. IMPRESSION: 1. Right talocalcaneal dislocation with osseous fragmentation, indicating Charcot arthropathy. 2. Healed fractures in the proximal phalanx of the right hallux, right third through fifth metatarsal necks. 3. Severe hallux valgus in the left foot varus deformity of the 2nd-4th toes. 4. Postsurgical changes as described above. 5. Left talar beaking, indicating abnormal subtalar motion. Workstation ID: [id number] Final Dictated by:MD Jenkins Joong Mo Dictated DT/TM:08/25/2024 10:58 Signed by:MD Jenkins Joong Mo Signed (Electronic Signature):08/25/2024 10:57 * Exam Date Time Procedure Performing Provider Status 08/25/24 9:11 AM XR Foot Complete 3+ Views Left Irma Ruiz; Final Notes: (XR Foot Complete 3+ Views Left) Reason For Exam: left foot XR Foot Complete 3+ Views Left EXAMINATION: XR Foot Complete 3+ Views Left, XR Foot Complete 3+ Views Right CLINICAL HISTORY: M79.672: Pain in left foot; M79.672: Pain in left foot; left foot COMPARISON: None FINDINGS: AP, oblique and lateral views of the right foot. Radiographs show talocalcaneal dislocation with osseous fragmentation and the soft tissue swelling. Healed fractures are noticed in the right 3rd to 5th metatarsal necks. Healed fracture of the proximal phalanx of the hallux is noticed. Mild degenerative changes are noticed in the hallux MTP joint. There is diffuse osseous demineralization. AP, oblique and lateral views of the left foot. There is a severe hallux valgus with lateralizationof the hallux sesamoids. 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 Two screws areplaced in the left first metatarsal. Postsurgical changes related to the arthrodesis of the second,third and fourth PIP joint stabilized with intramedullary fusion devices. Arthrodeses of the secondand third PIP joints appear to be healed. Status post resection arthroplasty in the fourth and fifth PIP joints. No hardware complication. There is varus deformity of the second to fourth toes through the MTP joints. Mild osteoarthritis of the left ankle is noticed with anterior tibial osteophyte. There is talar beaking, indicating abnormal subtalar motion. Mild degenerative changes of the subtalar joint are noticed. Os trigonum is present. IMPRESSION: 1. Right talocalcaneal dislocation with osseous fragmentation, indicating Charcot arthropathy. 2. Healed fractures in the proximal phalanx of the right hallux, right third through fifth metatarsal necks. 3. Severe hallux valgus in the left foot varus deformity of the 2nd-4th toes. 4. Postsurgical changes as described above. 5. Left talar beaking, indicating abnormal subtalar motion. Workstation ID: [id number] Final Dictated by:MD Jenkins Joong Mo Dictated DT/TM:08/25/2024 10:58 Signed by:MD Jenkins Joong Mo Signed (Electronic Signature):08/25/2024 10:57 Social History Social History Type Response Smoking Status Never smoked cigaret live Sex Male Sex Representation Male (finding) Patient Care team information Care Team Personnel Name: DO Maria Trevor S Position: Referring DIRECT Member Role: Primary Care Provider [address] [address] Name: Alejandro Lee Position: HIS Supervisor_P Member Role: HIS Lifetime Care Team Related Persons Name: JONATHAN VANN
[2024-09-07] MEDS: INSULIN ASPART PER UNIT CHARGE SC SCH (00:30)
[2024-09-07 06:12] LABS: Basophils # (auto) 0.04 K/uL (0.00-0.20); Basophils % (auto) 0.3 %; Eosinophils # (auto) 0.24 K/uL (0.00-0.50); Hematocrit (blood only) 31.7 % (42.0-52.0); Hemoglobin 10.5 g/dl (14.0-18.0); Immature Granulocytes # (auto) 0.05 K/uL (0.01-0.20); Immature Granulocytes % (auto) 0.4 %; Lymphocytes # (auto) 2.47 K/uL (1.20-3.40); Lymphocytes % (auto) 20.6 %; Mean Corpuscular Hemoglobin 28.5 pg (25.0-34.0); Mean Corpuscular Hgb Conc 33.1 g/dL (32.0-36.0); Mean Corpuscular Volume 86.1 fL (80.0-100.0); Mean Platelet Volume 10.2 fL (9.4-12.4); Monocytes # (auto) 1.06 K/uL (0.11-0.59); Monocytes % (auto) 8.8 %; Neutrophils # (auto) 8.12 K/uL (1.40-6.50); Neutrophils % (auto) 67.9 %; Platelet Count 297 K/uL (130-400); RDW Coefficient of Variation 13.1 % (11.5-14.5); RDW Standard Deviation 41.1 fL (36.4-46.3); Red Blood Count 3.68 M/uL (4.70-6.10); White Blood Count 11.98 K/ul (4.8-10.8)
[2024-09-07 06:32] LABS: Albumin Globulin Ratio 0.7 (0.9-2); Albumin Level 2.8 gm/dl (3.4-5.0); BUN Creatinine Ratio 13.5 (10-20); Bilirubin,Total 0.7 mg/dl (0.2-1.0); Calcium 8.5 mg/dl (8.6-10.3); Globulin 3.9 gm/dl (2.5-4.0); Potassium 3.9 mmol/L (3.5-5.1); Total Protein 6.7 gm/dl (6.0-8.3)
[2024-09-07 07:30] LABS: Estimated Average Glucose 326 mg/dl
[2024-09-07] MEDS: ASPIRIN 81 MG ECTAB PO SCH (08:30)
[2024-09-07] MEDS: FINASTERIDE 5 MG TAB PO SCH (08:30)
[2024-09-07] MEDS: PANTOprazole 40 MG TAB PO SCH (08:30)
[2024-09-07] MEDS: TAMSULOSIN HCL 0.4 MG CAP PO SCH (08:30)
--- NOTE | 2024-09-07 08:39 | Hospitalist Progress Note ---
Date of Service September 07, 2024 Assessment & Plan (1) Fall: (2) Closed compression fracture of thoracic vertebra: (3) Diabetic foot ulcers: (4) Catheter-associated urinary tract infection: Plan Selvin Sebastian is a 79y/o M with PMHx significant for uncontrolled DM type II, CKD stage III, diabetic polyneuropathy, chronic bilateral diabetic foot ulcers, paroxysmal atrial fibrillation [on Eliquis], chronic heart failure with preserved ejection fraction [EF = 55-59%, TTE 11/2023], HTN, dyslipidemia, coronary artery atherosclerosis, PAD, nonrheumatic aortic valve stenosis, BPH with obstruction/lower urinary tract symptoms [chronic indwelling Hanna catheter], recurrent UTIs, chronic anemia, bilateral foot deformity, Charcot's joint of right foot, right tympanic membrane perforation, multilevel degenerative disc disease, severe hearing loss of both ears, hoarding behavior, unsteady gait and bilateral lower extremity lymphedema who presented to the ED on 09/06/2024 with complaints of upper back pain after sustaining a fall. He was found to have an acute T6 compression deformity on admitting imaging. T6 Compression Fracture S/P Fall: CT Thoracic Spine --> "Mild acute T6 compression deformity without retropulsion." CT also incidentally noted subacute T12 and L1 compression deformities. CXR w/ mild left basilar opacities favoring atelectasis. Encourage incentive spirometry. Pain control w/ home oxycodone dosing. PT/OT evals pending. Ortho spine evaluated the patient today --> "He does not want to entertain surgery at this point in time. Ambulate ad harinder. No lifting over 5 pounds. Continue with current pain control. He should have a TLSO brace from his May consultation regarding his T12 and L1 compression fractures. This might be very uncomfortable though given his new T6 fracture. Therefore does not have to wear. " Left Rib Pain: Patient was c/o left rib pain per admitting providers. XR of L ribs w/o any acute fractures. Incentive spirometry onboard. Bilateral Diabetic Foot Wounds: Patient follows w/ [facility] as an outpatient per chart review. Evidence of ulcerative wounds on his R plantar midfoot region and L plantar heel region. L Foot XR --> 3.6cm ulcer of the plantar heel pad, mild diffuse soft tissue swelling. R Foot XR --> Notable Charcot neuropathy, dislocation of Chopart's joint, extensive ankle/foot soft tissue swelling. Podiatry onboard. Orders for MRI of the left ankle and right foot pending. Patient refused to go to MRI today, will try again tomorrow. Currently on day #2 of IV daptomycin + Zosyn. Wound cultures pending. Blood cultures pending. Wound care already onboard as well. Patient may benefit from sharp debridement of his left heel ulceration however there is no indication for surgery and this can be done at bedside. Acute CAUTI, H/O Recurrent UTIs Chronic Indwelling Hanna Catheter 2/ BPH: History of recurrent UTIs --> has grown Proteus mirabilis, Serratia marcescens in the past; UA appears infected this admission. Appears his Hanna catheter was last exchanged on 08/19/2024 per chart review. Continue Flomax/Proscar. Order placed to exchange his Hanna catheter today. Urine culture pending. Continue IV daptomycin/Zosyn for now as per above. Chronic HFpEF, Aortic Valve Stenosis Bilateral Lower Extremity Lymphedema: Echo from 04/2024 --> LVEF = 60-65%, mild concentric LVH, mildly dilated LA, severely calcified AV/borderline severe to severe AV stenosis. Per admitting providers, patient has missed his Lasix and other medications for 4 days prior to presentation. Patient w/ 2+ BLE edema at time of admission. S/p 20mg IV Lasix yesterday. BLE venous doppler negative for DVT. Resume usual 20mg po Lasix dosing today. Paroxysmal AFib/CAD/HTN/HLD: Continue Eliquis, metoprolol tartrate and ASA. Hold Lipitor while on daptomycin. CPK 25 today. Uncontrolled DM Type II: Hgb A1c was previously 10.5% on 02/08/2024. Per admitting providers, patient with recent insulin noncompliance x 1 week. BSG was 491 on presentation. S/p IVF + insulin in the ED. Basal/bolus regimen while inpatient. BSG improving. Hgb A1c 13% this admission. Glycemic pharmacy onboard. health educator consulted. 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 Code Status: FULL CODE PCP: James Maria DO Disposition: Admitted in PCU/Telemetry Patient is currently homeless. Per admitting provider, patient is living in a van outside of his 's apartment. Per the patient's most recent [facility] visit on 08/29/2024 --> "He has been offered multiple resources to assist with finding housing, but has declined any. Multiple referrals to the office of aging have been made as well. Patient is able to make his own medical decisions. " Farhana Sebastian, patient's , can be reached at the following phone #: [phone]. Patient would significantly benefit from placement. His was agreeable for referrals to be placed to [facility] and [facility]. Case management is follow ing closely. Patient seen in collaboration with Dr. Calzada. Please see addendum. I spent a total of 50 minutes coordinating, documenting, and providing care for this patient excluding time spent in the performance of separately billed services. This included personally reviewing all current laboratories and imaging studies, medical reconciliation, outpatient chart review and discussion with specialists. This chart was completed in part utilizing Speech Voice Recognition Software. Grammatical errors, random word insertions, pronoun errors, and incomplete sentences are an occasional consequence of this system due to software limitations, ambient noise, and hardware issues. Any formal questions or concerns about the content, text, or information contained within the body of this dictation should be directly addressed to the provider for clarification. Admission and Anticipated Discharge Date Admission Date: September 06, 2024 Supervising Physician Co-Signing Physician Notes Patient seen and examined independently. Patient does not want to undergo MRI as he reports significant lower back pain on transfer. Plan to attempt MRI tomorrow Follow-up wound and urine culture I have reviewed the advanced practitioner's documentation, and I agree with, and take responsibility for the plan of care I spent a total of 20 minutes coordinating, documenting, and providing care for this patient excluding time spent in the performance of separately billed services. All of the aforementioned completed while collaborating with the assigned advanced practitioner for a full treatment plan Subjective Saw patient before he went down to x-ray this morning. He is extremely hard of hearing and uses a communication board. He was not very conversive this morning however he did endorse persistent pain in his back and feet. Denies any SOB/chest pain. Review of Systems Review of Systems: At least ten systems reviewed and negative, except as noted in the subjective section. Physical Exam Physical Exam: General: Ill-appearing, obese, extremely hard of hearing, NAD, sitting up in bed, not very conversive however is A+Ox3. HEENT: Normocephalic, atraumatic. Conjunctivae normal, anicteric sclerae. External ear and nose normal, oropharynx normal. Respiratory: Normal respiratory effort, lungs clear to auscultation, no wheeze, rales, rhonchi. No accessory muscle use. Cardiovascular: Regular rate, irregular rhythm, systolic murmur, 2+ BLE edema/lymphedema. Vessels: No JVD. Abdomen/GI: Normal bowel sounds, soft, nontender to palpation of all quadrants. : Hanna catheter intact and draining clear, yellow urine without issue. No evidence of hematuria. Extremities/Musculoskeletal: No cyanosis or clubbing, extremities motor strength intact, moves all extremities. Neurologic: No focal deficits, CN's II-XI not formally tested but appear grossly intact bilaterally. Skin: Ulcerations noted on the R plantar midfoot region and the L heel region w/ surrounding erythema. Bandages reapplied on both areas. Results & Data Results & Data Vital Signs (Past 12 Hours) Vital Signs Temp Pulse Pulse Resp BP Pulse Ox O2 Del Method 09/07/24 08:03 Room Air 09/07/24 07:52 72 09/07/24 04:14 36.9 C 68 20 111/68 94 Room Air 09/07/24 00:17 36.6 C 16 105/56 L 92 Room Air 09/06/24 21:49 68 Laboratory Results Short CBC 09/06/24 09/07/24 Range/Units 12:25 05:33 WBC 12.59 H 11.98 H (4.8-10.8) K/ul Hgb 12.5 L 10.5 L (14.0-18.0) g/dl Hct 38.1 L 31.7 L (42.0-52.0) % Plt Count 309 297 (130-400) K/uL BMP 09/06/24 09/07/24 12:25 05:33 Sodium 130 L 132 L Potassium 4.7 3.9 Chloride 92 L 96 L Carbon Dioxide 29 30 BUN 25 H 24 H Creatinine 1.60 H 1.78 H Glucose 491 H* 110 H Calcium 9.0 8.5 L Liver Function 09/06/24 09/07/24 Range/Units 12:25 05:33 Total Bilirubin 1.0 0.7 (0.2-1.0) mg/dl AST 11 L 8 L (13-39) U/L ALT 5 L 3 L (7-52) U/L Alkaline Phosphatase 137 H 100 (34-104) U/L Albumin 3.4 2.8 L (3.4-5.0) gm/dl Urine 09/06/24 Range/Units 12:46 Urine Color Yellow Urine Appearance Turbid A (Clear) Urine pH 7.0 (4.5-7.5) Ur Specific [place] 1.024 (1.000-1.030) Urine Protein 1+ H (Negative) Urine Glucose (UA) 3+ H (Negative) Diagnostic Findings Venous Doppler Study 09/07/24 00:00 BILATERAL LOWER EXTREMITY VENOUS DOPPLER HISTORY: Acute pain and swelling of the lower legs b/l leg swelling, off eliquis x 4 days COMPARISON STUDY: 04/18/2024 FINDINGS: There is normal compressibility, flow, and augmentation within the bi lateral lower extremity deep venous systems. IMPRESSION: No DVT within the right or left lower extremity. ACT 112: Negative or not required by law. Electronically signed by: Fabio Simmons M.D. 09/07/2024 9:05 AM Foot X-Ray 09/07/24 08:00 XR foot LT min 3V routine HISTORY: 79 years-old Male l foot wound chronic left foot pain with bilateral hind foot wounds. COMPARISON: Ankle MRI 05/13/2024, CT left foot 05/12/2024 TECHNIQUE: 2 views of the left foot FINDINGS: Mild hallux valgus with first metatarsal bunion formation. Postoperative changes of the first through fourth digits redemonstrated. [place] medial angulation with chronic-appearing subluxation of the second through fifth metatarsophalangeal joints. Cortical thickening of the first metatarsal appears chronic. These findings are similar to the prior CT examination. [place]k-sk-gyoczryw multifocal osteoarthritis with pes planus. Moderate sized calcaneal enthesophyte. Os trigonum. Mild diffuse soft tissue swelling. No acute fracture, dislocation or osseous erosion. 3.6 cm ulcer noted along the heel pad with associated soft tissue swelling. This has increased in size from prior. IMPRESSION: 1. Ulcer of the plantar heel pad. No radiographic evidence of acute osteomyelitis at this time 2. Chronic findings as above. ACT 112: Negative or not required by law. The above report was generated using voice recognition software. It may contain grammatical, syntax or spelling errors. Electronically signed by: Fabio Simmons M.D. 09/07/2024 11:10 AM Foot X-Ray 09/07/24 08:00 XR foot RT min 3V routine CLINICAL HISTORY: r foot wound COMPARISON: Right foot radiographs May 16, 2022. Right calcaneus radiographs April 29, 2023. FINDINGS: Right foot and ankle soft tissue swelling is present. There are old fractures of the right third and fourth metatarsals. Lucency and subchondral irregularity of the distal aspect of the right first proximal phalanx is probably chronic. Tarsometatarsal joint alignment is anatomic. However, there is dislocation at Chopart's joint with lateral dislocation of the navicular with respect to the talus. Midfoot and hindfoot collapse on lateral projection is noted with periostitis of the distal right tibia and fibular as well as multiple bone fragments. A bandage of the medial right hindfoot is noted. This overlies the distal talus. There is subtle lucency within the adjacent portion of the distal talus with bone fragments. No definite acute fractures are identified. IMPRESSION: 1. Right hindfoot/ankle collapse with pes planus deformity and bony erosion involving the distal right tibia, talus and fibula with associated fragmentation and sclerosis within the hindfoot. The findings represent Charcot neuropathy, likely similar to radiographs of July 11, 2024. Bony erosion/periostitis of the right ankle and hindfoot could be related to neuropathic arthropathy or venous stasis. However, osteomyelitis could appear similar. 2. Dislocation of Chopart's joint with lateral dislocation of the navicular with respect to the talus. Probable medial hind foot wound. Lucency within the adjacent portion of the talus could be artifactual or related to neuropathic arthropathy. However, osteomyelitis cannot be excluded. 3. Old, healed fractures of the right third and fourth metatarsals. No acute fractures. 4. Extensive right ankle and foot soft tissue swelling. ACT 112: Negative or not required by law. Electronically signed by: Marco Mcpherson M.D. 09/07/2024 11:34 AM Ribs X-Ray 09/07/24 08:00 XR ribs LT min 2V HISTORY: 79 years-old Male rib pain acute left-sided rib pain status post injury COMPARISON: Chest radiograph 09/06/2024, and chest CT 05/12/2024 TECHNIQUE: 5 views of the left ribs FINDINGS: Cardiomegaly with mild left basilar atelectasis. Degenerative changes of the shoulders and spine. Mild levoscoliosis of the upper thoracic spine. Mild cortical thickening involves several anterior ribs suggestive of chronic fracture deformities. No acute displaced rib fracture identified. IMPRESSION: 1. No acute displaced rib fracture identified. 2. There are a few healed chronic anterolateral rib fractures. ACT 112: Negative or not required by law. The above report was generated using voice recognition software. It may contain grammatical, syntax or spelling errors. Electronically signed by: Fabio Simmons M.D. 09/07/2024 11:14 AM (1) Fall Encounter type: initial encounter Qualified Code(s): W19.XXXA - Unspecified fall, initial encounter (2) Closed compression fracture of thoracic vertebra Encounter type: initial encounter Qualified Code(s): S22.000A - Wedge compression fracture of unspecified thoracic vertebra, initial encounter for closed fracture (3) Diabetic foot ulcers Diabetes mellitus type: type 2 Diabetic foot ulcer location: unspecified part of foot Laterality: unspecified laterality Non-pressure ulcer stage: unspecified non-pressure ulcer stage Qualified Code(s): E11.621 - Type 2 diabetes mellitus with foot ulcer; L97.509 - Non-pressure chronic ulcer of other part of unspecified foot with unspecified severity (4) Catheter-associated urinary tract infection Encounter type: sequela Indwelling urinary catheter type: indwelling urethral catheter Qualified Code(s): T83.511S - Infection and inflammatory reaction due to indwelling urethral catheter, sequela; N39.0 - Urinary tract infection, site not specified
[2024-09-07] MEDS ORDERED: FUROSEMIDE 20 MG TAB PO SCH (09:00)
--- NOTE | 2024-09-07 09:07 | Ultrasound Report ---
BILATERAL LOWER EXTREMITY VENOUS DOPPLER HISTORY: Acute pain and swelling of the lower legs b/l leg swelling, off eliquis x 4 days COMPARISON STUDY: 04/18/2024 FINDINGS: There is normal compressibility, flow, and augmentation within the bilateral lower extremit y deep venous systems. IMPRESSION: No DVT within the right or left lower extremity. ACT 112: Negative or not required by law. Electronically signed by: Fabio Simmons M.D. 09/07/2024 9:05 AM
--- NOTE | 2024-09-07 09:23 | Podiatry Consultation ---
Date of Consultation September 07, 2024 Assessment & Plan (1) Diabetic peripheral neuropathy associated with type 2 diabetes mellitus: (2) Diabetic ulcer of right foot: Diabetic foot ulcer location: midfoot Diabetes mellitus type: type 2 Non-pressure ulcer stage: with fat layer exposed Qualified Code(s): E11.621 - Type 2 diabetes mellitus with foot ulcer; L97.412 - Non-pressure ch ronic ulcer of right heel and midfoot with fat layer exposed (3) Charcot foot due to diabetes mellitus: (4) Diabetic ulcer of left heel: Diabetes mellitus type: type 2 Non-pressure ulcer stage: with fat layer exposed Qualified Code(s): E11.621 - Type 2 diabetes mellitus with foot ulcer; L97.422 - Non-pressure chronic ulcer of left heel and midfoot with fat layer exposed Plan patient was examined and evaluated. Plain film imaging has been ordered already and orders for MRI were placed. This will help rule out any underlying infection and assess the level of Charcot deformity as well. He will likely still benefit from wound care more than anything and has been under the care of the [facility] wound care center. the left heel ulceration may benefit from sharp debridement though he can potentially benefit from this at bedside as well if there is no other indication for surgery. Right now they do not appear acutely infected and there is no pressing concern, surgically speaking. We will continue to monitor and will follow up after the MRI is performed. Continue with wound care now and a wound care nursing consult was placed, as well. History of Present Illness Reason for Consultation: Bilateral foot ulcerations Attending Physician: Casey Calzada MD History of Present Illness patient seen at bedside. He has failed to heal these ulcerations of both feet over the last several months and has not followed up in our office on a regular basis. He denies any significant pain to the foot and has been admitted for a another recent fall and back pain. On admission, he was noted to have these continued ulcerations to both feet. He denies any specific concerns regarding them but denies any continued aggressive wound care as well. He has been ambulating though minimally because of his continued back pain. He denies any acute changes to the foot, including any acute infectious symptoms. Allergies Allergy/AdvReac Type Severity Reaction Status Date / Time lisinopril Allergy Severe Swelling Verified 08/29/24 10:16 of Face/Lips/Tongue Home Medications Medication Instructions Recorded Confirmed Type apixaban 5 mg tablet (Eliquis) 5 mg PO BID #60 tabs 08/18/23 09/06/24 Rx atorvastatin 40 mg tablet 40 mg PO QAM #30 tabs 08/18/23 09/06/24 Rx finasteride 5 mg tablet 5 mg PO DAILY #30 tabs 08/18/23 09/06/24 Rx insulin aspart U-100 100 unit/mL 5 unit (0.05 mL) subcut TIDM #15 mL 08/18/23 09/06/24 Rx (3 mL) subcutaneous pen (Novolog FlexPen U-100 Insulin aspart) pantoprazole 40 mg tablet,delayed 40 mg PO DAILY #30 tabs 08/18/23 09/06/24 Rx release tamsulosin 0.4 mg capsule 0.4 mg PO DAILY #30 caps 08/18/23 09/06/24 Rx insulin glargine 100 unit/mL (3 22 unit subcut HS 04/07/24 09/06/24 History mL) subcutaneous pen (Lantus Solostar U-100 Insulin) aspirin 81 mg tablet,delayed 81 mg PO QAM #30 tabs 04/22/24 09/06/24 Rx release L.acidop,casei,lactis,rham-B.lact,anthony 1 cap PO DAILY #10 caps 05/17/24 09/06/24 Rx 625 mg (10 billion cell) capsule (Advanced Probiotic) metoprolol tartrate 25 mg tablet 25 mg PO BID #60 tabs 05/17/24 09/06/24 Rx oxycodone 5 mg tablet 5 mg PO QID PRN pain #10 tabs 05/17/24 09/06/24 Rx polyethylene glycol 3350 17 gram 17 g PO DAILY PRN constipation #14 05/17/24 09/06/24 Rx oral powder packet (Miralax) ea sennosides 8.6 mg-docusate sodium 1 tab PO BID PRN constipation #30 05/17/24 09/06/24 Rx 50 mg tablet (Senokot-S) tabs furosemide 20 mg tablet 20 mg PO QAM 09/06/24 09/06/24 History Patient History Medical History Asymptomatic hypertensive urgency Bilateral lower leg cellulitis Blister of finger Maggot infestation Catheter-associated urinary tract infection CESAR (acute kidney injury) Surgical History History of ear surgery age 19, mastoid H/O shoulder surgery S/P foot surgery, left Family History Brother Diabetes Social History Smoking Status: Unknown if ever smoked Tobacco Type: Cigarettes Second Hand Exposure: No; Do You Dip or Chew Tobacco: No; Preferred Language: Jamaican Communication Ability: Effective Communication Ability Comment: Hearing Loss. Visual Impairment: Limited Hearing Ability: Use of Hearing Aid Falsework Builder Required: No Beliefs That Will Affect Care: None marital status: Current Living Situation: Homeless Current Living Situation Comment: Patient lives in car. current occupational status: retired How many Children do You have: 3 Feels Safe at Home: Yes during the past year weight has: remained stable Dental Care, Regularly: No Physical Activity Frequency: Does not Exercise Assistive Devices: Cane and Walker Review of Systems Review of Systems: All systems reviewed & are unremarkable except as noted in HPI & below Constitutional: + weakness; no fever, no chills and no f atigue Eyes: no problem reported Ear, Nose, Mouth, Throat: + hearing loss; no problem reported Respiratory: no problem reported Cardiovascular: + edema; no problem reported Gastrointestinal: no nausea, no vomiting and no problem reported Musculoskeletal: + back pain and + loss of height; no pro blem reported Integumentary: + non-healing lesions, + skin ulcer, + w ounds and + erythema Neurologic: + loss of sensation, + numbness and + pa resthesia; no generalized weakness Psychiatric: no problem reported Physical Exam Physical Exam: Lower extremity focused exam: DP/PT pulses nonpalpable, possibly secondary to edema. There is calor noted to the bilateral foot. Ulcerations are noted to the right plantar mid foot and left plantar heel. These ulcers appear superficial with local erythema appreciated. No ascending cellulitis aside from a more diffuse erythema to the lower extremity noted overall. No pain is noted on palpation of the bilateral foot. No purulent drainage is appreciated. The wound beds are fibrotic. The right plantar ulceration is a large planter midfoot ulceration, underlying chronic Charcot deformity of the foot, measuring 9x4 cm and again superficial with a 100% granular base. The left plantar heel ulceration is consistent with chronic pressure, and deeper than on prior admission. The ulcer measures 4 x 3 x 1 cm in total. The ulceration is 80% fibrotic and 20% granular. Constitutional: WD/WN, vitals as above + ill appearing and + obese Eyes: PERRL, conjunctivae normal, anicteric sclerae ENMT: external ear and nose normal, oropharynx normal Mouth: + poor dentition Neck: trachea midline, no thyromegaly normal visual inspection Respiratory: normal respiratory effort; no respiratory distress Cardiovascular: Rate/Rhythm: regular rate and regular rhythm Chest (Breasts): Chest: normal inspection of chest Gastrointestinal (Abdomen): Inspection/Auscultation: abdomen normal to inspection Percussion/Palpation: + abdomen tender and abdomen soft Musculoskeletal: no cyanosis or clubbing, extremities motor strength 5/5 Head/Neck/Chest: normocephalic and head atraumatic Extremities: extremities normal to inspection Skin: + ulcer, + skin atrophy, + erythema and + nails dystrophic Neurologic: awake; no focal motor deficits Psychiatric: A+Ox3, euthymic affect Results & Data Vital Signs (Past 12 Hours) Vital Signs Temp Pulse Pulse Resp BP Pulse Ox O2 Del Method 09/07/24 08:39 36.6 C 63 18 134/76 91 Room Air 09/07/24 08:03 Room Air 09/07/24 07:52 72 09/07/24 04:14 36.9 C 68 20 111/68 94 Room Air 09/07/24 00:17 36.6 C 16 105/56 L 92 Room Air 09/06/24 21:49 68
--- NOTE | 2024-09-07 11:02 | Consultation ---
Date of Consultation September 07, 2024 Assessment & Plan (1) Closed compression fracture of thoracic vertebra: Dr. Ruteldge has reviewed imaging and treatment plan. I have given the patient 2 options including surgical versus conservative treatment plan. He does not want to entertain surgery at this point in time. Ambulate ad harinder. No lifting over 5 pounds. Continue with current pain control. He should have a TLSO brace from his May consultation regarding his T12 and L1 compression fractures. This might be very uncomfortable though given his new T6 fracture. Therefore does not have to wear. We will sign off. Please do not hesitate to contact us with any further questions. History of Present Illness Reason for Consultation: Thoracic compression fractures Attending Physician: Casey Calzada MD History of Present Illness This is a 79-year-old gentleman that we are seeing consultation regarding thoracic compression fractures. Patient is very hard of hearing. Most communication is done via writing on a white board. He was also seen in consultation this summer regarding T12 and L1 compression fractures which were treated nonoperatively. Currently he states he has pain from head to toe. Also reports back pain. Per chart review he has had multiple falls. He is currently homeless living in his van outside of his 's apartment complex. Has multiple medical comorbidities. Allergies Allergy/AdvReac Type Severity Reaction Status Date / Time lisinopril Allergy Severe Swelling Verified 08/29/24 10:16 of Face/Lips/Tongue Home Medications Medication Instructions Recorded Confirmed Type apixaban 5 mg tablet (Eliquis) 5 mg PO BID #60 tabs 08/18/23 09/06/24 Rx atorvastatin 40 mg tablet 40 mg PO QAM #30 tabs 08/18/23 09/06/24 Rx finasteride 5 mg tablet 5 mg PO DAILY #30 tabs 08/18/23 09/06/24 Rx insulin aspart U-100 100 unit/mL 5 unit (0.05 mL) subcut TIDM #15 mL 08/18/23 09/06/24 Rx (3 mL) subcutaneous pen (Novolog FlexPen U-100 Insulin aspart) pantoprazole 40 mg tablet,delayed 40 mg PO DAILY #30 tabs 08/18/23 09/06/24 Rx release tamsulosin 0.4 mg capsule 0.4 mg PO DAILY #30 caps 08/18/23 09/06/24 Rx insulin glargine 100 unit/mL (3 22 unit subcut HS 04/07/24 09/06/24 History mL) subcutaneous pen (Lantus Solostar U-100 Insulin) aspirin 81 mg tablet,delayed 81 mg PO QAM #30 tabs 04/22/24 09/06/24 Rx release L.acidop,casei,lactis,rham-B.lact,anthony 1 cap PO DAILY #10 caps 05/17/24 09/06/24 Rx 625 mg (10 billion cell) capsule (Advanced Probiotic) metoprolol tartrate 25 mg tablet 25 mg PO BID #60 tabs 05/17/24 09/06/24 Rx oxycodone 5 mg tablet 5 mg PO QID PRN pain #10 tabs 05/17/24 09/06/24 Rx polyethylene glycol 3350 17 gram 17 g PO DAILY PRN constipation #14 05/17/24 09/06/24 Rx oral powder packet (Miralax) ea sennosides 8.6 mg-docusate sodium 1 tab PO BID PRN constipation #30 05/17/24 09/06/24 Rx 50 mg tablet (Senokot-S) tabs furosemide 20 mg tablet 20 mg PO QAM 09/06/24 09/06/24 History Patient History Medical History Asymptomatic hypertensive urgency Bilateral lower leg cellulitis Blister of finger Maggot infestation Catheter-associated urinary tract infection CESAR (acute kidney injury) Surgical History History of ear surgery age 19, mastoid H/O shoulder surgery S/P foot surgery, left Family History Brother Diabetes Social History Smoking Status: Unknown if ever smoked Tobacco Type: Cigarettes Second Hand Exposure: No; Do You Dip or Chew Tobacco: No; Preferred Language: Bengali Communication Ability: Effective Communication Ability Comment: Hearing Loss. Visual Impairment: Limited Hearing Ability: Use of Hearing Aid Fire Hydrant Mechanic Required: No Beliefs That Will Affect Care: None marital status: Current Living Situation: Homeless Current Living Situation Comment: Patient lives in car. current occupational status: retired How many Children do You have: 3 Feels Safe at Home: Yes during the past year weight has: remained stable Dental Care, Regularly: No Physical Activity Frequency: Does not Exercise Assistive Devices: Cane and Walker Review of Systems Review of Systems: All systems reviewed & are unremarkable except as noted in HPI & below Physical Exam Physical Exam: He was sleeping when I entered the room but easily arousable Alert and oriented x 3 Cooperative with exam Has some tenderness over the midline upper and thoracolumbar region to palpation. Results & Data Vital Signs (Past 12 Hours) Vital Signs Temp Pulse Pulse Resp BP Pulse Ox O2 Del Method 09/07/24 08:39 36.6 C 63 18 134/76 91 Room Air 09/07/24 08:03 Room Air 09/07/24 07:52 72 09/07/24 04:14 36.9 C 68 20 111/68 94 Room Air 09/07/24 00:17 36.6 C 16 105/56 L 92 Room Air Diagnostic Findings [place], [place] [phone] CT Scan Report Patient: KATHARINE VANN Admit Date: 09/06/24 MR#: [id number] Address1: [address] [place] [address] Acct ID:[id number] Address2: Date: 1945 [facility] Zip: [place] [address] Age: 79 Location: ED Sex: M Room/Bed: Att Phy: Diagnosis: CHEST PAIN, BACK PAIN Natalie Phy: James Maria DO Service Date: 09/06/24 Fam Phy: Interpreting Phy: Fabio SimmonsAdmit Phy: Ordering Phy: Abdullahi Mai DO cc: ~ CT thoracic spine wo con HISTORY: 79 years-old Male upper back pain s/p fall 2 week ago acute mid back pain status post fall COMPARISON: 05/12/2024 TECHNIQUE: Multiple axial CT images of the thoracic spine were obtained without IV contrast. A dose lowering technique was used consistent with the principals of RUSTAM. FINDINGS: Subacute T12 compression deformity demonstrates progressive vertebral body height loss, now of approximately 50% with 3 mm retropulsion. Subacute L1 compression deformity also demonstrates progressive vertebral body height loss, now of greater than 50%. There is a mild acute-appearing T6 compression deformity with approximately 30% vertebral body height loss and no retropulsion. Unchanged mild superior endplate compression at T3. Mild upper thoracic levoscoliosis. No additional acute fracture or subluxation. No acute displaced rib fractures identified. Cardiomegaly. Bilateral perinephric stranding. Small hiatal hernia. No pneumothorax. IMPRESSION: 1. Mild acute T6 compression deformity without retropulsion. 2. Subacute T12 and L1 compression deformities demonstrate progressively worsened vertebral body height loss compared to the 05/12/2024 study. ACT 112: Negative or not required by law. The above report was generated using voice recognition software. It may contain grammatical, syntax or spelling errors. Electronically signed by: Fabio Simmons M.D. 09/06/2024 1:43 PM Dictated: 09/06/24 1333 Transcribed: 09/06/24 1333 (1) Closed compression fracture of thoracic vertebra Encounter type: initial encounter Qualified Code(s): S22.000A - Wedge compression fracture of unspecified thoracic vertebra, initial encounter for closed fracture
--- NOTE | 2024-09-07 11:12 | XRay Report ---
XR foot LT min 3V routine HISTORY: 79 years-old Male l foot wound chronic left foot pain with bilateral hind foot wounds. COMPARISON: Ankle MRI 05/13/2024, CT left foot 05/12/2024 TECHNIQUE: 2 views of the left foot FINDINGS: Mild hallux valgus with first metatarsal bunion formation. Postoperative changes of the first through fourth digits redemonstrated. Bullock medial angulation with chronic-appearing subluxation of the secon d through fifth metatarsophalangeal joints. Cortical thickening of the first metatarsal appears chron ic. These findings are similar to the prior CT examination. Waea-ry-obtecgkx multifocal osteoarthriti s with pes planus. Moderate sized calcaneal enthesophyte. Os trigonum. Mild diffuse soft tissue swell ing. No acute fracture, dislocation or osseous erosion. 3.6 cm ulcer noted along the heel pad with as sociated soft tissue swelling. This has increased in size from prior. IMPRESSION: 1. Ulcer of the plantar heel pad. No radiographic evidence of acute osteomyelitis at this time 2. Chronic findings as above. ACT 112: Negative or not required by law. The above report was generated using voice recognition software. It may contain grammatical, syntax o r spelling errors. Electronically signed by: Fabio Simmons M.D. 09/07/2024 11:10 AM
--- NOTE | 2024-09-07 11:16 | XRay Report ---
XR ribs LT min 2V HISTORY: 79 years-old Male rib pain acute left-sided rib pain status post injury COMPARISON: Chest radiograph 09/06/2024, and chest CT 05/12/2024 TECHNIQUE: 5 views of the left ribs FINDINGS: Cardiomegaly with mild left basilar atelectasis. Degenerative changes of the shoulders and spine. Mil d levoscoliosis of the upper thoracic spine. Mild cortical thickening involves several anterior ribs suggestive of chronic fracture deformities. No acute displaced rib fracture identified. IMPRESSION: 1. No acute displaced rib fracture identified. 2. There are a few healed chronic anterolateral rib fractures. ACT 112: Negative or not required by law. The above report was generated using voice recognition software. It may contain grammatical, syntax o r spelling errors. Electronically signed by: Fabio Simmons M.D. 09/07/2024 11:14 AM
--- NOTE | 2024-09-07 11:35 | XRay Report ---
XR foot RT min 3V routine CLINICAL HISTORY: r foot wound COMPARISON: Right foot radiographs May 16, 2022. Right calcaneus radiographs April 29, 2023. FINDINGS: Right foot and ankle soft tissue swelling is present. There are old fractures of the right third and fourth metatarsals. Lucency and subchondral irregularity of the distal aspect of the right first proximal phalanx is probably chronic. Tarsometatarsal joint alignment is anatomic. However, th ere is dislocation at Chopart's joint with lateral dislocation of the navicular with respect to the t alus. Midfoot and hindfoot collapse on lateral projection is noted with periostitis of the distal rig ht tibia and fibular as well as multiple bone fragments. A bandage of the medial right hindfoot is no slade. This overlies the distal talus. There is subtle lucency within the adjacent portion of the dista l talus with bone fragments. No definite acute fractures are identified. IMPRESSION: 1. Right hindfoot/ankle collapse with pes planus deformity and bony erosion involving the distal righ t tibia, talus and fibula with associated fragmentation and sclerosis within the hindfoot. The findin gs represent Charcot neuropathy, likely similar to radiographs of July 11, 2024. Bony erosion/per iostitis of the right ankle and hindfoot could be related to neuropathic arthropathy or venous stasis . However, osteomyelitis could appear similar. 2. Dislocation of Chopart's joint with lateral dislocation of the navicular with respect to the talus . Probable medial hind foot wound. Lucency within the adjacent portion of the talus could be artifact ual or related to neuropathic arthropathy. However, osteomyelitis cannot be excluded. 3. Old, healed fractures of the right third and fourth metatarsals. No acute fractures. 4. Extensive right ankle and foot soft tissue swelling. ACT 112: Negative or not required by law. Electronically signed by: Marco Mcpherson M.D. 09/07/2024 11:34 AM
[2024-09-08 06:29] LABS: Hematocrit (blood only) 30.3 % (42.0-52.0); Mean Corpuscular Hemoglobin 27.9 pg (25.0-34.0); Mean Corpuscular Volume 84.4 fL (80.0-100.0); Mean Platelet Volume 10.4 fL (9.4-12.4); Platelet Count 298 K/uL (130-400); RDW Coefficient of Variation 12.9 % (11.5-14.5); RDW Standard Deviation 40.2 fL (36.4-46.3); Red Blood Count 3.59 M/uL (4.70-6.10); White Blood Count 10.73 K/ul (4.8-10.8)
[2024-09-08 06:49] LABS: Calcium 8.3 mg/dl (8.6-10.3); Creatinine Clr Calc Pharmacy 34.1 ml/min; Magnesium 2.2 mg/dl (1.7-2.4); Phosphorus 4.1 mg/dl (2.5-4.9); Potassium 3.7 mmol/L (3.5-5.1)
--- NOTE | 2024-09-08 13:21 | Pharmacy Report ---
Pharmacy Glycemic Short Note 2 - Date of Service September 08, 2024 - Glycemic Short BSG Results (Last 24 hours): 09/07/24 09/07/24 09/08/24 16:57 20:35 05:50 Glucose 84 POC Glucose 120 H 192 H 09/08/24 09/08/24 07:16 11:33 Glucose POC Glucose 88 228 H OUTPATIENT ANTIDIABETIC REGIMEN: * Lantus 22 units SQ qHS * Novolog 5 units SQ TID with meals * HbA1c: 13% (09/07/24) ASSESSMENT: * Mr Sebastian is a 79yo diabetic M, admitted with vertebral fracture, DM foot infection. * Pt received 37 units of insulin yesterday (22 units of basal insulin, 15 units of bolus). * Novolog parameters adjusted today, based on BSG trend yesterday, in an attempt to better meet patient's needs. May require further adjustment. Tighter glycemic control is warranted to facilitate wound/infection healing. * Lantus dose will be reduced slightly this evening d/t fasting BSG below goal. * Pharmacy will continue to follow and adjust regimen as indicated. PLAN FOR INPATIENT GLYCEMIC CONTROL: * Basal insulin * Lantus 20 units SQ qHS * Bolus insulin * NovoLog per scale ACHS or Q6hrs while NPO * Goal Range: Low 90 mg/dL - High 140 mg/dL * Correction Factor: 45 mg/dL/unit * Nutritional / Prandial insulin per carb ratio of 1 unit per 10 grams CHO consumed
[2024-09-08] MEDS: MoRPHine SULFATE 4 MG/ML 1 ML CARP\\VIAL IV ONE (15:34)
[2024-09-08] MEDS: ALPRAZolam 0.25 MG TABLET PO ONE (15:35)
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
[2024-09-08] MEDS ORDERED: LANTUS PER UNIT CHARGE SC SCH (21:00)
[2024-09-08] MEDS: LANTUS PER UNIT CHARGE SC SCH (21:18)
[2024-09-09] MEDS: INSULIN ASPART PER UNIT CHARGE SC ONE (02:15)
[2024-09-09 04:36] LABS: Hematocrit (blood only) 31.5 % (42.0-52.0); Hemoglobin 10.1 g/dl (14.0-18.0); Mean Corpuscular Hemoglobin 27.7 pg (25.0-34.0); Mean Corpuscular Hgb Conc 32.1 g/dL (32.0-36.0); Mean Corpuscular Volume 86.3 fL (80.0-100.0); Mean Platelet Volume 10.1 fL (9.4-12.4); Platelet Count 294 K/uL (130-400); RDW Standard Deviation 40.9 fL (36.4-46.3); Red Blood Count 3.65 M/uL (4.70-6.10); White Blood Count 9.61 K/ul (4.8-10.8)
[2024-09-09 04:40] LABS: BUN Creatinine Ratio 14.3 (10-20); Calcium 8.3 mg/dl (8.6-10.3); Creatinine Clr Calc Pharmacy 33.1 ml/min; Magnesium 2.2 mg/dl (1.7-2.4); Phosphorus 3.9 mg/dl (2.5-4.9)
--- NOTE | 2024-09-09 09:21 | Hospitalist Progress Note ---
Date of Service September 09, 2024 Assessment & Plan (1) Fall: (2) Closed compression fracture of thoracic vertebra: (3) Diabetic foot ulcers: (4) Catheter-associated urinary tract infection: Plan Selvin Sebastian is a 79y/o M with PMHx significant for uncontrolled DM type II, CKD stage III [baseline Cr ~1.4-2.0], diabetic polyneuropathy, chronic bilateral diabetic foot ulcers, paroxysmal atrial fibrillation [on Eliquis], chronic heart failure with preserved ejection fraction [EF = 55-59%, TTE 11/2023], HTN, dyslipidemia, coronary artery atherosclerosis, PAD, nonrheumatic aortic valve stenosis, BPH with obstruction/lower urinary tract symptoms [chronic indwelling Hanna catheter], recurrent UTIs, chronic anemia, bilateral foot deformity, Charcot's joint of right foot, right tympanic membrane perforation, multilevel degenerative disc disease, severe hearing loss of both ears, hoarding behavior, unsteady gait and bilateral lower extremity lymphedema who presented to the ED on 09/06/2024 with complaints of upper back pain after sustaining a fall. He was found to have an acute T6 compression deformity on admitting imaging. T6 Compression Fracture S/P Fall: CT Thoracic Spine --> "Mild acute T6 compression deformity without retropulsion." CT also incidentally noted subacute T12 and L1 compression deformities. CXR w/ mild left basilar opacities favoring atelectasis. Encourage incentive spirometry. Pain control w/ home oxycodone dosing. Ortho spine consulted --> "He does not want to entertain surgery at this point in time. Ambulate ad harinder. No lifting over 5 pounds. Continue with current pain control. He should have a TLSO brace from his May consultation regarding his T12 and L1 compression fractures. This might be very uncomfortable though given his new T6 fracture. Therefore does not have to wear." PT/OT recommending rehab placement. Referrals were made to [facility] and [facility]. Patient agreeable with placement at [facility] per discussion with case management. Left Rib Pain: Patient was c/o left rib pain per admitting providers. XR of L ribs w/o any acute fractures. Incentive spirometry onboard. Bilateral Diabetic Foot Wounds: Patient follows w/ [facility] as an outpatient per chart review. Evidence of ulcerative wounds on his R plantar midfoot region and L plantar heel region. L Foot XR --> 3.6cm ulcer of the plantar heel pad, mild diffuse soft tissue swelling. R Foot XR --> Notable Charcot neuropathy, dislocation of Chopart's joint, extensive ankle/foot soft tissue swelling. Podiatry onboard. Patient still adamantly refusing to go down to MRI. Per discussion with Dr. John Buitrago via TT on 09/08/2024 --> "His wounds are healthy enough that they shouldn't keep him inpatient. If he's refusing MRI and fighting with nurses and he doesn't want surgery for his back, he can be treated outpatient for the feet for sure." L Foot WC--> Preliminarily growing Proteus mirabilis and Staphylococcus aureus. R Foot WC --> Preliminarily growing Pseudomonas aeruginosa and Staphylococcus aureus. Has been on IV daptomycin + Zosyn. Blood cultures NGTD. Wound care already. Transitioning him to IV Zosyn + oral doxycycline. Plan to continue antibiotics for a total of 5 to 7 days. Acute CAUTI, H/O Recurrent UTIs Chronic Indwelling Hanna Catheter 2/ BPH: History of recurrent UTIs --> has grown Proteus mirabilis, Serratia marcescens in the past; UA appears infected this admission. Appears his Hanna catheter was last exchanged on 08/19/2024 per chart review therefore it was exchanged on 09/07. Continue Flomax/Proscar. Preliminary repeat urine culture unremarkable. Continue oral doxycycline/IV Zosyn for now as per above. Chronic HFpEF, Aortic Valve Stenosis Bilateral Lower Extremity Lymphedema: Echo from 04/2024 --> LVEF = 60-65%, mild concentric LVH, mildly dilated LA, severely calcified AV/borderline severe to severe AV stenosis. Per admitting providers, patient has missed his Lasix and other medications for 4 days prior to presentation. Patient w/ 2+ BLE edema at time of admission. S/p 20mg IV Lasix on 09/06/2024. BLE venous doppler negative for DVT. Continue home po Lasix 20mg daily. Paroxysmal AFib/CAD/HTN/HLD: Continue Eliquis, metoprolol tartrate and ASA. Can resume Lipitor tomorrow AM. Uncontrolled DM Type II: Hgb A1c was previously 10.5% on 02/08/2024. Per admitting providers, patient with recent insulin noncompliance x 1 week. BSG was 491 on presentation. S/p IVF + insulin in the ED. Basal/bolus regimen while inpatient. BSG improving. Hgb A1c 13% this admission. Glycemic pharmacy, asthma educator onboard. DVT Prophylaxis: On Eliquis DIAMOND MOUNTER - continue. Code Status: FULL CODE PCP: James Maria, Disposition: Level of care downgraded to Med/Surg today - Working on getting the patient rehab placement at this time, case management onboard. Patient is currently homeless. Per admitting provider, patient is living in a van outside of his 's apartment. Farhana Sebastian, patient's , can be reached at the following phone #: [phone]. Could not get ahold of Farhana again today - left her a voicemail. Patient seen in collaboration with Dr. Calzada. Please see addendum. I spent a total of 45 minutes coordinating, documenting, and providing care for this patient excluding time spent in the performance of separately billed services. This included personally reviewing all current laboratories and imaging studies, medical reconciliation, outpatient chart review and discussion with specialists. This chart was completed in part utilizing Speech Voice Recognition Software. Grammatical errors, random word insertions, pronoun errors, and incomplete sentences are an occasional consequence of this system due to software limitations, ambient noise, and hardware issues. Any formal questions or concerns about the content, text, or information contained within the body of this dictation should be directly addressed to the provider for clarification. Admission and Anticipated Discharge Date Admission Date: September 06, 2024 Supervising Physician Co-Signing Physician Notes Patient seen and examined independently. Culture growing Pseudomonas and Staph aureus;Plan to continue antibiotics for total of 5 to 7 days. Case management on board for placement I have reviewed the advanced practitioner's documentation, and I agree with, and take responsibility for the plan of care I spent a total of 20 minutes coordinating, documenting, and providing care for this patient excluding time spent in the performance of separately billed services. All of the aforementioned completed while collaborating with the assigned advanced practitioner for a full treatment plan Subjective Patient was still combative with nursing staff this morning. He was throwing condiments and his food tray on the floor. He reports that his back is still very painful but he is again not interested in surgery at this point. He is also still not interested in further imaging of his feet. Review of Systems Review of Systems: At least ten systems reviewed and negative, except as noted in the subjective section. Physical Exam Physical Exam: General: Ill-appearing, obese, extremely hard of hearing, NAD, laying down in bed, have to communicate with writing pad, A+Ox3. HEENT: Normocephalic, atraumatic. Conjunctivae normal, anicteric sclerae. External ear and nose normal, oropharynx normal. Respiratory: Normal respiratory effort, lungs clear to auscultation, no wheeze, rales, rhonchi. No accessory muscle use. Cardiovascular: Regular rate, irregular rhythm, systolic murmur, 2+ BLE edema/lymphedema. Vessels: No JVD. Abdomen/GI: Normal bowel sounds, soft, nontender to palpation of all quadrants. : Hanna catheter intact and draining clear, yellow urine without issue. No evidence of hematuria. Extremities/Musculoskeletal: No cyanosis or clubbing, extremities motor strength intact, moves all extremities. Neurologic: No focal deficits, CN's II-XI not formally tested but appear grossly intact bilaterally. Skin: Ulcerations on the R plantar midfoot region and the L heel region with surrounding erythema, no evidence of ascending cellulitis. Results & Data Results & Data Vital Signs (Past 12 Hours) Vital Signs Temp Pulse Pulse Resp BP Pulse Ox O2 Del Method 09/09/24 08:41 36.4 C L 65 17 131/75 93 Room Air 09/09/24 03:37 36.5 C 61 17 144/70 H 92 Room Air 09/09/24 01:23 76 09/08/24 22:41 37.2 C 69 18 125/74 94 Room Air Laboratory Results Short CBC 09/09/24 Range/Units 03:54 WBC 9.61 (4.8-10.8) K/ul Hgb 10.1 L (14.0-18.0) g/dl Hct 31.5 L (42.0-52.0) % Plt Count 294 (130-400) K/uL BMP 09/09/24 03:54 Sodium 135 L Potassium 4.0 Chloride 98 Carbon Dioxide 29 BUN 26 H Creatinine 1.82 H Glucose 126 H Calcium 8.3 L (1) Fall Encounter type: initial encounter Qualified Code(s): W19.XXXA - Unspecified fall, initial encounter (2) Closed compression fracture of thoracic vertebra Encounter type: initial encounter Qualified Code(s): S22.000A - Wedge compression fracture of unspecified thoracic vertebra, initial encounter for closed fracture (3) Diabetic foot ulcers Diabetes mellitus type: type 2 Diabetic foot ulcer location: unspecified part of foot Laterality: unspecified laterality Non-pressure ulcer stage: unspecified non-pressure ulcer stage Qualified Code(s): E11.621 - Type 2 diabetes mellitus with foot ulcer; L97.509 - Non-pressure chronic ulcer of other part of unspecified foot with unspecified severity (4) Catheter-associated urinary tract infection Encounter type: sequela Indwelling urinary catheter type: indwelling urethral catheter Qualified Code(s): T83.511S - Infection and inflammatory reaction due to indwelling urethral catheter, sequela; N39.0 - Urinary tract infection, site not specified
--- NOTE | 2024-09-09 13:57 | Electrocardiogram Report ---
Test Reason : Blood Pressure : */* mmHG Vent. Rate : 65 BPM Atrial Rate : 65 BPM P-R Int : 164 ms QRS Dur : 120 ms QT Int : 454 ms P-R-T Axes : -29 -49 1 degrees QTcB Int : 472 ms Normal sinus rhythm Right bundle branch block Left anterior fascicular block Bifascicular block Voltage criteria for left ventricular hypertrophy Abnormal ECG When compared with ECG of 06-Sep-2024 11:55, Minimal criteria for Septal infarct are no longer Present T wave inversion no longer evident in Anterior leads Confirmed by Hill Echevarria ([id number]) on 09/09/2024 1:56:34 PM Referred By: REFERRED SELF Confirmed By: Hill Echevarria
--- NOTE | 2024-09-09 15:52 | Podiatry Progress Note ---
Date of Service September 08, 2024 Assessment & Plan (1) Diabetic peripheral neuropathy associated with type 2 diabetes mellitus: (2) Diabetic ulcer of right foot: (3) Charcot foot due to diabetes mellitus: (4) Diabetic ulcer of left heel: Plan patient was examined and evaluated. - plain film imaging of the right reveals extensive neuro-arthropathic damage, including complete subluxation of the rear foot and likely Charcot of the distal tibia and fibula as well. - Would benefit from a reconstruction of this prior to ambulating, though his current vascular state and social state would make this very difficult to heal. - Should be fit for a custom [place] boot once discharged and should only began relating in a surgical boot and, again, minimally. - Ordered an MRI to reveal/evaluate any underlying osteomyelitis to the left foot or the right ankle changes. - We will follow. Admission and Anticipated Discharge Date Admission Date: September 06, 2024 Subjective Patient seen at bedside. Utilize writing to community with the patient as he is hard of hearing. No new concerns regarding the feet. Review of Systems Constitutional: + weakness; no fever, no chills and no f atigue Eyes: no problem reported Ear, Nose, Mouth, Throat: + hearing loss; no problem reported Respiratory: no problem reported Cardiovascular: + edema; no problem reported Gastrointestinal: no nausea, no vomiting and no problem reported Musculoskeletal: + back pain and + loss of height; no pro blem reported Integumentary: + non-healing lesions, + skin ulcer, + w ounds and + erythema Neurologic: + loss of sensation, + numbness and + pa resthesia; no generalized weakness Psychiatric: no problem reported Physical Exam Physical Exam: Lower extremity focused exam: DP/PT pulses nonpalpable, possibly secondary to edema. There is calor noted to the bilateral foot. Ulcerations are noted to the right plantar mid foot and left plantar heel. These ulcers appear superficial with local erythema appreciated. No ascending cellulitis aside from a more diffuse erythema to the lower extremity noted overall. No pain is noted on palpation of the bilateral foot. No purulent drainage is appreciated. The wound beds are fibrotic. The right plantar ulceration is a large planter midfoot ulceration, underlying chronic Charcot deformity of the foot, measuring 9x4 cm and again superficial with a 100% granular base. The left plantar heel ulceration is consistent with chronic pressure, and deeper than on prior admission. The ulcer measures 4 x 3 x 1 cm in total. The ulceration is 80% fibrotic and 20% granular. Constitutional: WD/WN, vitals as above + ill appearing and + obese Eyes: PERRL, conjunctivae normal, anicteric sclerae ENMT: external ear and nose normal, oropharynx normal Mouth: + poor dentition Neck: trachea midline, no thyromegaly normal visual inspection Respiratory: normal respiratory effort; no respiratory distress Cardiovascular: Rate/Rhythm: regular rate and regular rhythm Chest (Breasts): Chest: normal inspection of chest Gastrointestinal (Abdomen): Inspection/Auscultation: abdomen normal to inspection Percussion/Palpation: + abdomen tender and abdomen soft Musculoskeletal: no cyanosis or clubbing, extremities motor strength 5/5 Head/Neck/Chest: normocephalic and head atraumatic Extremities: extremities normal to inspection Skin: + ulcer, + skin atrophy, + erythema and + nails dystrophic Neurologic: awake; no focal motor deficits Psychiatric: A+Ox3, euthymic affect Results & Data Results & Data Vital Signs (Past 12 Hours) Vital Signs Temp Pulse Resp BP Pulse Ox O2 Del Method 09/08/24 15:42 37.2 C 66 18 119/66 94 Room Air 09/08/24 11:34 37.0 C 63 18 136/64 94 Room Air 09/08/24 07:11 36.8 C 58 L 18 116/64 94 Room Air (2) Diabetic ulcer of right foot Diabetic foot ulcer location: midfoot Diabetes mellitus type: type 2 Non- pressure ulcer stage: with fat layer exposed Qualified Code(s): E11.621 - Type 2 diabetes mellitus with foot ulcer; L97.412 - Non-pressure chronic ulcer of right heel and midfoot with fat layer exposed (4) Diabetic ulcer of left heel Diabetes mellitus type: type 2 Non-pressure ulcer stage: with fat layer exposed Qualified Code(s): E11.621 - Type 2 diabetes mellitus with foot ulcer; L97.422 - Non-pressure chronic ulcer of left heel and midfoot with fat layer exposed
--- NOTE | 2024-09-09 15:56 | Podiatry Progress Note ---
Date of Service September 09, 2024 Assessment & Plan (1) Diabetic peripheral neuropathy associated with type 2 diabetes mellitus: (2) Diabetic ulcer of right foot: (3) Charcot foot due to diabetes mellitus: (4) Diabetic ulcer of left heel: Plan patient was examined and evaluated. - Plain film imaging reviewed. Has refused all MR imaging. - plain film imaging is consistent with his clinical dislocation of his right rear foot joints. - Limb salvage will require some sort of reconstructive procedure, likely a pantalar arthrodesis with rigid internal fixation. - This can be assessed and treated outpatient, as can his continued wound care. - Once he is medically stable, he can be discharged from the hospital for further treatment outpatient. - With him refusing our treatment, I will sign off for now. Please reconsult as necessary. He should continue with wound care by nursing on this admission. Admission and Anticipated Discharge Date Admission Date: September 06, 2024 Subjective Patient seen at bedside. has refused MRI imaging since yesterday, adamantly. He states he is not interested in imaging and not interested in surgery for his foot and ankle. Further, states that he is fighting with his and would like to prevent her from any further access to his treatment plans. Nursing states he has been increasingly combative as well, fighting with them about continued treatment plans. Review of Systems Constitutional: + weakness; no fever, no chills and no f atigue Eyes: no problem reported Ear, Nose, Mouth, Throat: + hearing loss; no problem reported Respiratory: no problem reported Cardiovascular: + edema; no problem reported Gastrointestinal: no nausea, no vomiting and no problem reported Musculoskeletal: + back pain and + loss of height; no pro blem reported Integumentary: + non-healing lesions, + skin ulcer, + w ounds and + erythema Neurologic: + loss of sensation, + numbness and + pa resthesia; no generalized weakness Psychiatric: no problem reported Physical Exam Physical Exam: Lower extremity focused exam: DP/PT pulses nonpalpable, possibly secondary to edema. There is calor noted to the bilateral foot. Ulcerations are noted to the right plantar mid foot and left plantar heel. These ulcers appear superficial with local erythema appreciated. No ascending cellulitis aside from a more diffuse erythema to the lower extremity noted overall. No pain is noted on palpation of the bilateral foot. No purulent drainage is appreciated. The wound beds are fibrotic. The right plantar ulceration is a large planter midfoot ulceration, underlying chronic Charcot deformity of the foot, measuring 9x4 cm and again superficial with a 100% granular base. The left plantar heel ulceration is consistent with chronic pressure, and deeper than on prior admission. The ulcer measures 4 x 3 x 1 cm in total. The ulceration is 80% fibrotic and 20% granular. Constitutional: WD/WN, vitals as above + ill appearing and + obese Eyes: PERRL, conjunctivae normal, anicteric sclerae ENMT: external ear and nose normal, oropharynx normal Mouth: + poor dentition Neck: trachea midline, no thyromegaly normal visual inspection Respiratory: normal respiratory effort; no respiratory distress Cardiovascular: Rate/Rhythm: regular rate and regular rhythm Chest (Breasts): Chest: normal inspection of chest Gastrointestinal (Abdomen): Inspection/Auscultation: abdomen normal to inspection Percussion/Palpation: + abdomen tender and abdomen soft Musculoskeletal: no cyanosis or clubbing, extremities motor strength 5/5 Head/Neck/Chest: normocephalic and head atraumatic Extremities: extremities normal to inspection Skin: + ulcer, + skin atrophy, + erythema and + nails dystrophic Neurologic: awake; no focal motor deficits Psychiatric: A+Ox3, euthymic affect Results & Data Results & Data Vital Signs (Past 12 Hours) Vital Signs Temp Pulse Resp BP Pulse Ox O2 Del Method 09/09/24 12:58 37.1 C 65 18 134/73 96 Room Air 09/09/24 11:06 36.8 C 64 17 153/88 H 94 Room Air 09/09/24 08:41 36.4 C L 65 17 131/75 93 Room Air (2) Diabetic ulcer of right foot Diabetic foot ulcer location: midfoot Diabetes mellitus type: type 2 Non- pressure ulcer stage: with fat layer exposed Qualified Code(s): E11.621 - Type 2 diabetes mellitus with foot ulcer; L97.412 - Non-pressure chronic ulcer of right heel and midfoot with fat layer exposed (4) Diabetic ulcer of left heel Diabetes mellitus type: type 2 Non-pressure ulcer stage: with fat layer expos ed Qualified Code(s): E11.621 - Type 2 diabetes mellitus with foot ulcer; L97.422 - Non-pressure chronic ulcer of left heel and midfoot with fat layer exposed
[2024-09-09] MEDS: DOXYCYCLINE HYCLATE 100 MG CAP PO SCH (21:49)
[2024-09-10 06:52] LABS: Hematocrit (blood only) 31.1 % (42.0-52.0); Hemoglobin 10.2 g/dl (14.0-18.0); Mean Corpuscular Hemoglobin 28.5 pg (25.0-34.0); Mean Corpuscular Hgb Conc 32.8 g/dL (32.0-36.0); Mean Corpuscular Volume 86.9 fL (80.0-100.0); Mean Platelet Volume 9.8 fL (9.4-12.4); Platelet Count 293 K/uL (130-400); RDW Coefficient of Variation 12.7 % (11.5-14.5); RDW Standard Deviation 40.6 fL (36.4-46.3); Red Blood Count 3.58 M/uL (4.70-6.10); White Blood Count 8.42 K/ul (4.8-10.8)
[2024-09-10 07:16] LABS: BUN Creatinine Ratio 15.2 (10-20); Calcium 8.5 mg/dl (8.6-10.3); Creatinine Clr Calc Pharmacy 35.4 ml/min; Magnesium 2.2 mg/dl (1.7-2.4); Phosphorus 3.8 mg/dl (2.5-4.9)
[2024-09-10] MEDS: ATORVASTATIN 40 MG TAB PO SCH (08:06)
[2024-09-10] MEDS: DAPTOmycin 250 MG in SYRINGE 0 ML IV SCH (09:01)
[2024-09-10] MEDS: ACETAMINOPHEN 325 MG TAB PO PRN (09:46)
--- NOTE | 2024-09-10 13:33 | Hospitalist Progress Note ---
Date of Service September 10, 2024 Assessment & Plan (1) Fall: (2) Closed compression fracture of thoracic vertebra: (3) Diabetic foot ulcers: (4) Catheter-associated urinary tract infection: Plan Selvin Sebastian is a 79y/o M with PMHx significant for uncontrolled DM type II, CKD stage III [baseline Cr ~1.4-2.0], diabetic polyneuropathy, chronic bilateral diabetic foot ulcers, paroxysmal atrial fibrillation [on Eliquis], chronic heart failure with preserved ejection fraction [EF = 55-59%, TTE 11/2023], HTN, dyslipidemia, coronary artery atherosclerosis, PAD, nonrheumatic aortic valve stenosis, BPH with obstruction/lower urinary tract symptoms [chronic indwelling Hanna catheter], recurrent UTIs, chronic anemia, bilateral foot deformity, Charcot's joint of right foot, right tympanic membrane perforation, multilevel degenerative disc disease, severe hearing loss of both ears, hoarding behavior, unsteady gait and bilateral lower extremity lymphedema who presented to the ED on 09/06/2024 with complaints of upper back pain after sustaining a fall. He was found to have an acute T6 compression deformity on admitting imaging. T6 Compression Fracture S/P Fall: CT Thoracic Spine --> "Mild acute T6 compression deformity without retropulsion." CT also incidentally noted subacute T12 and L1 compression deformities. CXR w/ mild left basilar opacities favoring atelectasis. Encourage incentive spirometry. Pain control w/ home oxycodone dosing. Ortho spine consulted --> "He does not want to entertain surgery at this point in time. Ambulate ad harinder. No lifting over 5 pounds. Continue with current pain control. He should have a TLSO brace from his May consultation regarding his T12 and L1 compression fractures. This might be very uncomfortable though given his new T6 fracture. Therefore does not have to wear." PT/OT recommending rehab placement. Referrals made to [facility]; anticipate transition on Wednesday 09/12 Left Rib Pain: Patient was c/o left rib pain per admitting providers. XR of L ribs w/o any acute fractures. Incentive spirometry ordered. Bilateral Diabetic Foot Wounds: Patient follows w/ [facility] as an outpatient Evidence of ulcerative wounds on his R plantar midfoot region and L plantar heel region. L Foot XR --> 3.6cm ulcer of the plantar heel pad, mild diffuse soft tissue swelling. R Foot XR --> Notable Charcot neuropathy, dislocation of Chopart's joint, extensive ankle/foot soft tissue swelling. Podiatry onboard. Patient still adamantly refusing to go down to MRI. Per discussion with Dr. John Buitrago via TT on 09/08/2024 --> "His wounds are healthy enough that they shouldn't keep him inpatient. If he's refusing MRI and fighting with nurses and he doesn't want surgery for his back, he can be treated outpatient for the feet for sure." L Foot WC--> Preliminarily growing Proteus mirabilis and Staphylococcus aureus. R Foot WC --> Preliminarily growing Pseudomonas aeruginosa and Staphylococcus aureus. Has been on IV doxycycline + Zosyn; based on culture results will started on Dapto on 09/10 Acute CAUTI, H/O Recurrent UTIs Chronic Indwelling Hanna Catheter 12/04 BPH: History of recurrent UTIs --> has grown Proteus mirabilis, Serratia marcescens in the past; UA appears infected this admission. Appears his Hanna catheter was last exchanged on 08/19/2024 per chart review therefore it was exchanged on 09/07. Continue Flomax/Proscar. Preliminary repeat urine culture unremarkable. Chronic HFpEF, Aortic Valve Stenosis Bilateral Lower Extremity Lymphedema: Echo from 04/2024 --> LVEF = 60-65%, mild concentric LVH, mildly dilated LA, severely calcified AV/borderline severe to severe AV stenosis. Per admitting providers, patient has missed his Lasix and other medications for 4 days prior to presentation. Patient w/ 2+ BLE edema at time of admission. S/p 20mg IV Lasix on 09/06/2024. BLE venous doppler negative for DVT. Continue home po Lasix 20mg daily. Paroxysmal AFib/CAD/HTN/HLD: Continue Eliquis, metoprolol tartrate and ASA. Can resume Lipitor tomorrow AM. Uncontrolled DM Type II: Hgb A1c was previously 10.5% on 02/08/2024. Per admitting providers, patient with recent insulin noncompliance x 1 week. BSG was 491 on presentation. S/p IVF + insulin in the ED. Basal/bolus regimen while inpatient. BSG improving. Hgb A1c 13% this admission. Glycemic pharmacy, clinical trial educator onboard. 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 Code Status: FULL CODE PCP: aJmes Maria DO Disposition: Level of care downgraded to Med/Surg today - Working on getting the patient rehab placement at this time, case management onboard; will remain inpatient through weekend. Patient is currently homeless. Per admitting provider, patient is living in a van outside of his 's apartment. Farhana Sebastian, patient's , can be reached at the following phone #: [phone]. Could not get ahold of Farhana again today - left her a voicemail. I spent a total of 45 minutes coordinating, documenting, and providing care for this patient excluding time spent in the performance of separately billed services. This included personally reviewing all current laboratories and imaging studies, medical reconciliation, outpatient chart review and discussion with specialists. This chart was completed in part utilizing Speech Voice Recognition Software. Grammatical errors, random word insertions, pronoun errors, and incomplete sentences are an occasional consequence of this system due to software limitations, ambient noise, and hardware issues. Any formal questions or concerns about the content, text, or information contained within the body of this dictation should be directly addressed to the provider for clarification. Admission and Anticipated Discharge Date Admission Date: September 06, 2024 Supervising Physician Co-Signing Physician Notes Chart reviewed; discussed with the provider. Continue on IV Zosyn for Pseudomonas and IV daptomycin for Staph aureus infection; plan to treat for 5 to 7 days Awaiting placement. I have reviewed the advanced practitioner's documentation, and I agree with, and take responsibility for the plan of care Subjective Pt lying in his hospital bed in no apparent distress. Pt is quite [place] and this frustrates him. Pt denies Arboleda, dizziness, SOB, chest pain, palpitations, N/V/D. No signs of aggression noted. Please see A/P for further details. Review of Systems Review of Systems: Neuro: (-) Falls, trauma, slurred speech HEENT: (-) ARBOLEDA, dizziness, dysphagia, visual or auditory changes CV: (-) CP, palpitations, swelling Resp: (-) SOB GI: (-) appetite changes, N/V/D, bowel changes : (-) urinary changes Skin: (-) rashes Psych: (-) anxiety, depression Physical Exam Physical Exam: Neuro: AAOx4, PERRLA, no aphagia, memory changes, CNII-XII grossly intact HEENT: head normocephalic, moist mucus membranes CV: S1/S2, (-) M/G/R, (-) edema, cap refill < 3 seconds Resp: Lungs CTA in all wilson. On RA GI: Abdomen S/NT/ND, Ax4 bowel sounds, (-) CVA tenderness Musculoskeletal: 5/5 B/L UE strength, 5/5 B/L LE strength. No gait disturbance Skin: (-) rashes , (-) erythema. Psych: euthymic mood Results & Data Results & Data Vital Signs (Past 12 Hours) Vital Signs Temp Pulse Resp BP Pulse Ox O2 Del Method 09/10/24 10:33 Room Air 09/10/24 07:04 36.7 C 60 18 134/72 96 Room Air Laboratory Results Short CBC 09/10/24 Range/Units 06:22 WBC 8.42 (4.8-10.8) K/ul Hgb 10.2 L (14.0-18.0) g/dl Hct 31.1 L (42.0-52.0) % Plt Count 293 (130-400) K/uL BMP 09/10/24 06:22 Sodium 136 Potassium 4.0 Chloride 99 Carbon Dioxide 31 BUN 26 H Creatinine 1.71 H Glucose 187 H Calcium 8.5 L (1) Fall Encounter type: initial encounter Qualified Code(s): W19.XXXA - Unspecified fall, initial encounter (2) Closed compression fracture of thoracic vertebra Encounter type: initial encounter Qualified Code(s): S22.000A - Wedge compression fracture of unspecified thoracic vertebra, initial encounter for closed fracture (3) Diabetic foot ulcers Diabetes mellitus type: type 2 Diabetic foot ulcer location: unspecified part of foot Laterality: unspecified laterality Non-pressure ulcer stage: unspecified non-pressure ulcer stage Qualified Code(s): E11.621 - Type 2 diabetes mellitus with foot ulcer; L97.509 - Non-pressure chronic ulcer of other part of unspecified foot with unspecified severity (4) Catheter-associated urinary tract infection Encounter type: sequela Indwelling urinary catheter type: indwelling urethral catheter Qualified Code(s): T83.511S - Infection and inflammatory reaction due to indwelling urethral catheter, sequela; N39.0 - Urinary tract infection, site not specified
--- NOTE | 2024-09-10 14:20 | Pharmacy Report ---
Pharmacy Glycemic Short Note 2 - Date of Service September 10, 2024 - Glycemic Short BSG Results (Last 24 hours): 09/09/24 09/09/24 09/09/24 17:13 20:45 20:47 Glucose POC Glucose 224 H 346 H* 362 H* 09/10/24 09/10/24 09/10/24 06:22 07:47 11:35 Glucose 187 H POC Glucose 165 H 211 H OUTPATIENT ANTIDIABETIC REGIMEN: * Lantus 22 units SQ qHS * Novolog 5 units SQ TID with meals * HbA1c: 13% (09/07/24) ASSESSMENT: 09/10 * Patient received total of 26 units of insulin yesterday, of which 15 units were basal insulin * Fasting BSG 187 mg/dL - trending upward, will titrate up to 17 units tonight * BSGs elevated yesterday evening, however patient wasn't in unit for lunch check and no insulin given and then insulin was refused for dinner check 09/08 * Mr Sebastian is a 79yo diabetic M, admitted with vertebral fracture, DM foot infection. * Pt received 37 units of insulin yesterday (22 units of basal insulin, 15 units of bolus). * Novolog parameters adjusted today, based on BSG trend yesterday, in an attempt to better meet patient's needs. May require further adjustment. Tighter glycemic control is warranted to facilitate wound/infection healing. * Lantus dose will be reduced slightly this evening d/t fasting BSG below goal. * Pharmacy will continue to follow and adjust regimen as indicated. PLAN FOR INPATIENT GLYCEMIC CONTROL: * Basal insulin * Lantus 17 units SQ qHS * Bolus insulin * NovoLog per scale ACHS or Q6hrs while NPO * Goal Range: Low 100 mg/dL - High 140 mg/dL * Correction Factor: 40 mg/dL/unit * Nutritional / Prandial insulin per carb ratio of 1 unit per 9 grams CHO consumed
[2024-09-10] MEDS: LANTUS PER UNIT CHARGE SC SCH (20:54)
[2024-09-11 06:34] LABS: Hematocrit (blood only) 29.3 % (42.0-52.0); Hemoglobin 9.5 g/dl (14.0-18.0); Mean Corpuscular Hemoglobin 28.3 pg (25.0-34.0); Mean Corpuscular Hgb Conc 32.4 g/dL (32.0-36.0); Mean Corpuscular Volume 87.2 fL (80.0-100.0); Mean Platelet Volume 9.9 fL (9.4-12.4); Platelet Count 313 K/uL (130-400); RDW Coefficient of Variation 12.7 % (11.5-14.5); RDW Standard Deviation 40.9 fL (36.4-46.3); Red Blood Count 3.36 M/uL (4.70-6.10); White Blood Count 9.37 K/ul (4.8-10.8)
[2024-09-11 07:02] LABS: BUN Creatinine Ratio 17.8 (10-20); Calcium 8.4 mg/dl (8.6-10.3); Creatinine Clr Calc Pharmacy 41.4 ml/min
--- NOTE | 2024-09-11 11:15 | Hospitalist Progress Note ---
Date of Service September 11, 2024 Assessment & Plan (1) Fall: (2) Closed compression fracture of thoracic vertebra: (3) Diabetic foot ulcers: (4) Catheter-associated urinary tract infection: Plan Selvin Sebastian is a 79y/o M with PMHx significant for uncontrolled DM type II, CK D stage III [baseline Cr ~1.4-2.0], diabetic polyneuropathy, chronic bilateral diabetic foot ulcers, paroxysmal atrial fibrillation [on Eliquis], chronic heart failure with preserved ejection fraction [EF = 55-59%, TTE 11/2023], HTN, dyslipidemia, coronary artery atherosclerosis, PAD, nonrheumatic aortic valve stenosis, BPH with obstruction/lower urinary tract symptoms [chronic indwelling Yee catheter], recurrent UTIs, chronic anemia, bilateral foot deformity, Charcot's joint of right foot, right tympanic membrane perforation, multilevel degenerative disc disease, severe hearing loss of both ears, hoarding behavior, unsteady gait and bilateral lower extremity lymphedema who presented to the ED on 09/06/2024 with complaints of upper back pain after sustaining a fall. He was found to have an acute T6 compression deformity on admitting imaging. Bilateral Diabetic Foot Wounds: Patient follows w/ [facility] as an outpatient Evidence of ulcerative wounds on his R plantar midfoot region and L plantar heel region. L Foot XR --> 3.6cm ulcer of the plantar heel pad, mild diffuse soft tissue swelling. R Foot XR --> Notable Charcot neuropathy, dislocation of Chopart's joint, extensive ankle/foot soft tissue swelling. Podiatry onboard. Patient still adamantly refusing to go down to MRI. Per discussion with Dr. John Buitrago via TT on 09/08/2024 --> "His wounds are healthy enough that they shouldn't keep him inpatient. If he's refusing MRI and fighting with nurses and he doesn't want surgery for his back, he can be treated outpatient for the feet for sure." L Foot WC--> Preliminarily growing Proteus mirabilis and Staphylococcus aureus. R Foot WC --> Preliminarily growing Pseudomonas aeruginosa and Staphylococcus a ureus. Doxycycline discontinued and Daptomycin started on 09/10--> Continue DApto + Zosyn for full coverage T6 Compression Fracture S/P Fall: CT Thoracic Spine --> "Mild acute T6 compression deformity without retropulsion." CT also incidentally noted subacute T12 and L1 compression deformities. CXR w/ mild left basilar opacities favoring atelectasis. Encourage incentive spirometry. Pain control w/ home oxycodone dosing. Ortho spine consulted --> "He does not want to entertain surgery at this point in time. Ambulate ad harinder. No lifting over 5 pounds. Continue with current pain control. He should have a TLSO brace from his May consultation regarding his T12 and L1 compression fractures. This might be very uncomfortable though given his new T6 fracture. Therefore does not have to wear." PT/OT recommending rehab placement. Anticipate transition to [facility] on Wednesday 09/12 pending bed availability Left Rib Pain: Patient was c/o left rib pain per admitting providers. XR of L ribs w/o any acute fractures. Incentive spirometry ordered. Acute CAUTI, H/O Recurrent UTIs Chronic Indwelling Yee Catheter 2/2 BPH: History of recurrent UTIs --> has grown Proteus mirabilis, Serratia marcescens in the past; UA appears infected this admission. Last yee catheter exchange was on 09/07 Continue Flomax/Proscar. Repeat urine culture unremarkable. Chronic HFpEF, Aortic Valve Stenosis Bilateral Lower Extremity Lymphedema: Echo from 04/2024 --> LVEF = 60-65%, mild concentric LVH, mildly dilated LA, severely calcified AV/borderline severe to severe AV stenosis. Per admitting providers, patient has missed his Lasix and other medications for 4 days prior to presentation. Patient w/ 2+ BLE edema at time of admission. S/p 20mg IV Lasix on 09/06/2024. BLE venous doppler negative for DVT. Continue home po Lasix 20mg daily. Paroxysmal AFib/CAD/HTN/HLD: Continue Eliquis, metoprolol tartrate and ASA. Restarted Lipitor. Uncontrolled DM Type II: Hgb A1c was previously 10.5% on 02/08/2024. Per admitting providers, patient with recent insulin noncompliance x 1 week. BSG was 491 on presentation. S/p IVF + insulin in the ED. Basal/bolus regimen while inpatient. BSG improving. Hgb A1c 13% this admission. Glycemic pharmacy, staff educator onboard. 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 Code Status: FULL CODE PCP: James Maria DO Disposition: Level of care downgraded to Med/Surg today - Anticipate transition to [facility] on Wednesday 09/12 pending bed availability Patient is currently homeless. Per admitting provider, patient is living in a van outside of his 's apartment. Farhana Sebastian, patient's , can be reached at the following phone #: [phone]. Difficult time getting in touch with patients , Farhana. Have left her a VM. I spent a total of 46 minutes coordinating, documenting, and providing care for this patient excluding time spent in the performance of separately billed services. This included personally reviewing all current laboratories and imaging studies, medical reconciliation, outpatient chart review and discussion with specialists. This chart was completed in part utilizing Speech Voice Recognition Software. Grammatical errors, random word insertions, pronoun errors, and incomplete sentences are an occasional consequence of this system due to software limitations, ambient noise, and hardware issues. Any formal questions or concerns about the content, text, or information contained within the body of t his dictation should be directly addressed to the provider for clarification. Admission and Anticipated Discharge Date Admission Date: September 06, 2024 Supervising Physician Co-Signing Physician Notes Chart reviewed; discussed with above provider. Patient's vitals look stable; creatinine improving along with patient's blood glucose. He is medically stable; plan to discharge to rehab when placement is available I have reviewed the advanced practitioner's documentation, and I agree with, and take responsibility for the plan of care Subjective Pt lying in his hospital bed in no apparent distress. He was resting when I encountered him. Pt is quite [place] and this frustrates him, but he was quite pleasant today and in no apparent distress. It works well if you write to him on a pad with pen in large letters; I commented on the [employer] game and even got him to smile and say "WE ARE" Pt denies Arboleda, dizziness, SOB, chest pain, palpitations, N/V/D. Please see A/P for further details. Review of Systems Review of Systems: Neuro: (-) Falls, trauma, slurred speech HEENT: (-) ARBOLEDA, dizziness, dysphagia, visual or auditory changes CV: (-) CP, palpitations, swelling Resp: (-) SOB GI: (-) appetite changes, N/V/D, bowel changes : (-) urinary changes Skin: (-) rashes Psych: (-) anxiety, depression Physical Exam Physical Exam: Neuro: AAOx4, PERRLA, no aphagia, memory changes, CNII-XII grossly intact HEENT: head normocephalic, moist mucus membranes CV: S1/S2, (-) M/G/R, (-) edema, cap refill < 3 seconds Resp: Lungs CTA in all wilson. On RA GI: Abdomen S/NT/ND, Ax4 bowel sounds, (-) CVA tenderness Musculoskeletal: 5/5 B/L UE strength, 5/5 B/L LE strength. No gait disturbance Skin: (-) rashes , (+) wound dressing bilateral feet C/D/I. I did not visualize the wound beds. Psych: euthymic mood Results & Data Results & Data Vital Signs (Past 12 Hours) Vital Signs Temp Pulse Resp BP Pulse Ox O2 Del Method 09/11/24 07:07 36.7 C 60 18 130/76 96 Room Air Laboratory Results Short CBC 09/11/24 Range/Units 05:45 WBC 9.37 (4.8-10.8) K/ul Hgb 9.5 L (14.0-18.0) g/dl Hct 29.3 L (42.0-52.0) % Plt Count 313 (130-400) K/uL BMP 09/11/24 05:45 Sodium 134 L Potassium 4.0 Chloride 97 L Carbon Dioxide 29 BUN 26 H Creatinine 1.46 H Glucose 134 H Calcium 8.4 L (1) Fall Encounter type: initial encounter Qualified Code(s): W19.XXXA - Unspecified fall, initial encounter (2) Closed compression fracture of thoracic vertebra Encounter type: initial encounter Qualified Code(s): S22.000A - Wedge compression fracture of unspecified thoracic vertebra, initial encounter for closed fracture (3) Diabetic foot ulcers Diabetes mellitus type: type 2 Diabetic foot ulcer location: unspecified part of foot Laterality: unspecified laterality Non-pressure ulcer stage: unspeci fied non-pressure ulcer stage Qualified Code(s): E11.621 - Type 2 diabetes mellitus with foot ulcer; L97.509 - Non-pressure chronic ulcer of other part of unspecified foot with unspecified severity (4) Catheter-associated urinary tract infection Encounter type: sequela Indwelling urinary catheter type: indwelling urethral catheter Qualified Code(s): T83.511S - Infection and inflammatory reaction due to indwelling urethral catheter, sequela; N39.0 - Urinary tract infection, site not specified
--- NOTE | 2024-09-11 11:45 | Pharmacy Report ---
Pharmacy Glycemic Short Note 2 - Date of Service September 11, 2024 - Glycemic Short BSG Results (Last 24 hours): 09/10/24 09/10/24 09/11/24 16:41 20:46 05:45 Glucose 134 H POC Glucose 212 H 176 H 09/11/24 09/11/24 07:36 11:35 Glucose POC Glucose 117 H 105 H OUTPATIENT ANTIDIABETIC REGIMEN: * Lantus 22 units SQ qHS * Novolog 5 units SQ TID with meals * HbA1c: 13% (09/07/24) ASSESSMENT: 09/11 * Patient received total of 40 units of insulin yesterday, of which 17 units were basal * Fasting BSG improved, 134 mg/dL - will continue same basal dose * Lunch BSG trending down slightly, will loosen CR - previous data shows patient's BSGs trends down throughout the day 09/10 * Patient received total of 26 units of insulin yesterday, of which 15 units were basal insulin * Fasting BSG 187 mg/dL - trending upward, will titrate up to 17 units tonight * BSGs elevated yesterday evening, however patient wasn't in unit for lunch check and no insulin given and then insulin was refused for dinner check 09/08 * Mr Sebastian is a 79yo diabetic M, admitted with vertebral fracture, DM foot infection. * Pt received 37 units of insulin yesterday (22 units of basal insulin, 15 units of bolus). * Novolog parameters adjusted today, based on BSG trend yesterday, in an attempt to better meet patient's needs. May require further adjustment. Tighter glycemic control is warranted to facilitate wound/infection healing. * Lantus dose will be reduced slightly this evening d/t fasting BSG below goal. * Pharmacy will continue to follow and adjust regimen as indicated. PLAN FOR INPATIENT GLYCEMIC CONTROL: * Basal insulin * Lantus 17 units SQ qHS * Bolus insulin * NovoLog per scale ACHS or Q6hrs while NPO * Goal Range: Low 100 mg/dL - High 140 mg/dL * Correction Factor: 40 mg/dL/unit * Nutritional / Prandial insulin per carb ratio of 1 unit per 11 grams CHO consumed
[2024-09-12 07:18] LABS: Hematocrit (blood only) 28.9 % (42.0-52.0); Hemoglobin 9.5 g/dl (14.0-18.0); Mean Corpuscular Hemoglobin 27.8 pg (25.0-34.0); Mean Corpuscular Hgb Conc 32.9 g/dL (32.0-36.0); Mean Corpuscular Volume 84.5 fL (80.0-100.0); Mean Platelet Volume 9.7 fL (9.4-12.4); Platelet Count 333 K/uL (130-400); RDW Coefficient of Variation 12.8 % (11.5-14.5); RDW Standard Deviation 39.6 fL (36.4-46.3); Red Blood Count 3.42 M/uL (4.70-6.10); White Blood Count 8.83 K/ul (4.8-10.8)
[2024-09-12 07:33] LABS: BUN Creatinine Ratio 16.6 (10-20); Calcium 8.5 mg/dl (8.6-10.3); Creatinine Clr Calc Pharmacy 40.1 ml/min; Potassium 3.9 mmol/L (3.5-5.1)
--- NOTE | 2024-09-12 16:46 | Hospitalist Progress Note ---
Date of Service September 12, 2024 Assessment & Plan (1) Fall: (2) Closed compression fracture of thoracic vertebra: (3) Diabetic foot ulcers: (4) Catheter-associated urinary tract infection: Plan Selvin Sebastian is a 79y/o M with PMHx significant for uncontrolled DM type II, CK D stage III [baseline Cr ~1.4-2.0], diabetic polyneuropathy, chronic bilateral diabetic foot ulcers, paroxysmal atrial fibrillation [on Eliquis], chronic heart failure with preserved ejection fraction [EF = 55-59%, TTE 11/2023], HTN, dyslipidemia, coronary artery atherosclerosis, PAD, nonrheumatic aortic valve stenosis, BPH with obstruction/lower urinary tract symptoms [chronic indwelling Hanna catheter], recurrent UTIs, chronic anemia, bilateral foot deformity, Charcot's joint of right foot, right tympanic membrane perforation, multilevel degenerative disc disease, severe hearing loss of both ears, hoarding behavior, unsteady gait and bilateral lower extremity lymphedema who presented to the ED on 09/06/2024 with complaints of upper back pain after sustaining a fall. He was found to have an acute T6 compression deformity on admitting imaging. Bilateral Diabetic Foot Wounds: Patient follows w/ [facility] as an outpatient per chart review. Evidence of ulcerative wounds on his R plantar midfoot region and L plantar heel region. L Foot XR --> 3.6cm ulcer of the plantar heel pad, mild diffuse soft tissue swelling. R Foot XR --> Notable Charcot neuropathy, dislocation of Chopart's joint, extensive ankle/foot soft tissue swelling. Podiatry onboard. Patient still adamantly refusing to go down to MRI. Per discussion with Dr. John Buitrago via TT on 09/08/2024 --> "His wounds are healthy enough that they shouldn't keep him inpatient. If he's refusing MRI and fighting with nurses and he doesn't want surgery for his back, he can be treated outpatient for the feet for sure." L Foot WC--> Preliminarily growing Proteus mirabilis and Staphylococcus aureus. R Foot WC --> Preliminarily growing Pseudomonas aeruginosa and Staphylococcus aureus. Blood cultures NGTD. Wound care already onboard. Continue IV daptomycin + Zosyn for full coverage (on day #7 on ABX therapy). T6 Compression Fracture S/P Fall: CT Thoracic Spine --> "Mild acute T6 compression deformity without retropulsion." CT also incidentally noted subacute T12 and L1 compression deformities. CXR w/ mild left basilar opacities favoring atelectasis. Encourage incentive spirometry. Pain control w/ home oxycodone dosing. Ortho spine consulted --> "He does not want to entertain surgery at this point in time. Ambulate ad harinder. No lifting over 5 pounds. Continue with current pain control. He should have a TLSO brace from his May consultation regarding his T12 and L1 compression fractures. This might be very uncomfortable though given his new T6 fracture. Therefore does not have to wear." PT/OT recommending rehab placement. Referrals were made to [facility] and [facility]. [facility] will not have a bed. Patient agreeable with placement at [facility] per discussion with case management. Currently awaiting placement. Left Rib Pain: Patient was c/o left rib pain per admitting providers. XR of L ribs w/o any acute fractures. Incentive spirometry ordered. Acute CAUTI, H/O Recurrent UTIs Chronic Indwelling Hanna Catheter 2/ BPH: History of recurrent UTIs --> has grown Proteus mirabilis, Serratia marcescens in the last; UA appears infected this admission. Appears his Hanna catheter was last exchanged on 08/19/2024 per chart review therefore it was exchanged on 09/07. Continue Flomax/Proscar. Repeat urine culture unremarkable. Chronic HFpEF, Aortic Valve Stenosis Bilateral Lower Extremity Lymphedema: Echo from 04/2024 --> LVEF = 60-65%, mild concentric LVH, mildly dilated LA, severely calcified AV/borderline severe to severe AV stenosis. Per admitting providers, patient has missed his Lasix and other medications for 4 days prior to presentation. Patient w/ 2+ BLE edema at time of admission. S/p 20mg IV Lasix on 09/06/2024. BLE venous doppler negative for DVT. Continue home po Lasix 20mg daily. Paroxysmal AFib/CAD/HTN/HLD: Continue Eliquis, metoprolol tartrate and ASA. Hold Lipitor while on IV daptomycin. Uncontrolled DM Type II: Hgb A1c was previously 10.5% on 02/08/2024. Per admitting providers, patient with recent insulin noncompliance x 1 week. BSG was 491 on presentation. S/p IVF + insulin in the ED. Basal/bolus regimen while inpatient. BSG improving. Hgb A1c 13% this admission. Glycemic pharmacy, mri special procedures technologist onboard. 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 Code Status: FULL CODE PCP: James Maria DO Disposition: Admitted in Med/Surg - Anticipate discharge to [facility] in the next 1-2 days pending bed availability/acceptance. Patient is currently homeless. Per admitting provider, patient is living in a van outside of his 's apartment. Farhana Sebastian, patient's , can be contacted at the following phone #: [phone]. Difficult time getting in touch with patient's , have left multiple voicemail messages. Patient seen in collaboration with Dr. Calzada. Please see addendum. I spent a total of 40 minutes coordinating, documenting, and providing care for this patient excluding time spent in the performance of separately billed services. This included personally reviewing all current laboratories and imaging studies, medical reconciliation, outpatient chart review and discussion with specialists. This chart was completed in part utilizing Speech Voice Recognition Software. Grammatical errors, random word insertions, pronoun errors, and incomplete sentences are an occasional consequence of this system due to software limitations, ambient noise, and hardware issues. Any formal questions or concerns about the content, text, or information contained within the body of this dictation should be directly addressed to the provider for clarification. Admission and Anticipated Discharge Date Admission Date: September 06, 2024 Supervising Physician Co-Signing Physician Notes Late entry; patient seen on Patient seen and examined at bedside. Comfortable; not in distress. Denies fever, chills, chest pain, shortness of breath, abdominal pain or urinary symptoms. No significant overnight events Awaiting placement I have reviewed the advanced practitioner's documentation, and I agree with, and take responsibility for the plan of care I spent a total of 20 minutes coordinating, documenting, and providing care for this patient excluding time spent in the performance of separately billed services. All of the aforementioned completed while collaborating with the assigned advanced practitioner for a full treatment plan Subjective Patient seen and examined at bedside. Communicated with the patient via whiteboard as he is extremely hard of hearing. Still having some back pain this morning. Both of his feet are covered with bandaging. Patient has been cooperative per nursing staff. Filled out his lunch order with him this morning. He is so far agreeable with placement. Review of Systems Review of Systems: At least ten systems reviewed and negative, except as noted in the subjective section. Physical Exam Physical Exam: General: Ill-appearing, obese, extremely hard of hearing, NAD, laying down in bed, have to communicate with writing pad, A+Ox3. HEENT: Normocephalic, atraumatic. Conjunctivae normal, anicteric sclerae. External ear and nose normal, oropharynx normal. Respiratory: Normal respiratory effort, lungs clear to auscultation, no wheeze, rales, rhonchi. No accessory muscle use. Cardiovascular: Regular rate, irregular rhythm, systolic murmur, BLE edema/lymphedema. Vessels: No JVD. Abdomen/GI: Normal bowel sounds, soft, nontender to palpation of all quadrants. : Hanna catheter intact and draining clear, yellow urine without issue. No evidence of hematuria. Extremities/Musculoskeletal: No cyanosis or clubbing, extremities motor strength intact, moves all extremities. Neurologic: No focal deficits, CN's II-XI not formally tested but appear grossly intact bilaterally. Skin: Dry/intact wound dressings in place over both feet, personally did not directly visualize his wounds. Results & Data Results & Data Vital Signs (Past 12 Hours) Vital Signs Temp Pulse Pulse Resp BP BP Pulse Ox 09/12/24 15:37 36.9 C 60 18 132/69 98 09/12/24 11:30 37.1 C 63 16 122/84 95 09/12/24 08:06 09/12/24 07:11 36.9 C 70 18 128/73 96 O2 Del Method 09/12/24 15:37 Room Air 09/12/24 11:30 Room Air 09/12/24 08:06 Room Air 09/12/24 07:11 Room Air Laboratory Results Short CBC 09/12/24 Range/Units 06:44 WBC 8.83 (4.8-10.8) K/ul Hgb 9.5 L (14.0-18.0) g/dl Hct 28.9 L (42.0-52.0) % Plt Count 333 (130-400) K/uL BMP 09/12/24 06:44 Sodium 136 Potassium 3.9 Chloride 99 Carbon Dioxide 31 BUN 25 H Creatinine 1.51 H Glucose 137 H Calcium 8.5 L (1) Fall Encounter type: initial encounter Qualified Code(s): W19.XXXA - Unspecified fall, initial encounter (2) Closed compression fracture of thoracic vertebra Encounter type: initial encounter Qualified Code(s): S22.000A - Wedge compression fracture of unspecified thoracic vertebra, initial encounter for closed fracture (3) Diabetic foot ulcers Diabetes mellitus type: type 2 Diabetic foot ulcer location: unspecified part of foot Laterality: unspecified laterality Non-pressure ulcer stage: unspecified non-pressure ulcer stage Qualified Code(s): E11.621 - Type 2 diabetes mellitus with foot ulcer; L97.509 - Non-pressure chronic ulcer of other part of unspecified foot with unspecified severity (4) Catheter-associated urinary tract infection Encounter type: sequela Indwelling urinary catheter type: indwelling urethral catheter Qualified Code(s): T83.511S - Infection and inflammatory reaction due to indwelling urethral catheter, sequela; N39.0 - Urinary tract infection, site not specified
[2024-09-13 07:31] LABS: Hematocrit (blood only) 32.5 % (42.0-52.0); Hemoglobin 10.5 g/dl (14.0-18.0); Mean Corpuscular Hemoglobin 27.9 pg (25.0-34.0); Mean Corpuscular Hgb Conc 32.3 g/dL (32.0-36.0); Mean Corpuscular Volume 86.4 fL (80.0-100.0); Mean Platelet Volume 9.5 fL (9.4-12.4); Platelet Count 371 K/uL (130-400); RDW Coefficient of Variation 12.8 % (11.5-14.5); RDW Standard Deviation 40.6 fL (36.4-46.3); Red Blood Count 3.76 M/uL (4.70-6.10); White Blood Count 9.25 K/ul (4.8-10.8)
[2024-09-13 07:35] LABS: BUN Creatinine Ratio 16.3 (10-20); Calcium 8.8 mg/dl (8.6-10.3); Creatinine Clr Calc Pharmacy 35.2 ml/min; Magnesium 1.9 mg/dl (1.7-2.4); Phosphorus 3.9 mg/dl (2.5-4.9); Potassium 3.9 mmol/L (3.5-5.1)
--- NOTE | 2024-09-13 11:35 | Hospitalist Progress Note ---
Date of Service September 13, 2024 Assessment & Plan (1) Fall: (2) Closed compression fracture of thoracic vertebra: (3) Diabetic foot ulcers: (4) Catheter-associated urinary tract infection: Plan Selvin Sebastian is a 79y/o M with PMHx significant for uncontrolled DM type II, CK D stage III [baseline Cr ~1.4-2.0], diabetic polyneuropathy, chronic bilateral diabetic foot ulcers, paroxysmal atrial fibrillation [on Eliquis], chronic heart failure with preserved ejection fraction [EF = 55-59%, TTE 11/2023], HTN, dyslipidemia, coronary artery atherosclerosis, PAD, nonrheumatic aortic valve stenosis, BPH with obstruction/lower urinary tract symptoms [chronic indwelling Hanna catheter], recurrent UTIs, chronic anemia, bilateral foot deformity, Charcot's joint of right foot, right tympanic membrane perforation, multilevel degenerative disc disease, severe hearing loss of both ears, hoarding behavior, unsteady gait and bilateral lower extremity lymphedema who presented to the ED on 09/06/2024 with complaints of upper back pain after sustaining a fall. He was found to have an acute T6 compression deformity on admitting imaging. Bilateral Diabetic Foot Wounds: Patient follows w/ [facility] as an outpatient per chart review. Evidence of ulcerative wounds on his R plantar midfoot region and L plantar heel region. L Foot XR --> 3.6cm ulcer of the plantar heel pad, mild diffuse soft tissue swelling. R Foot XR --> Notable Charcot neuropathy, dislocation of Chopart's joint, extensive ankle/foot soft tissue swelling. Podiatry was consulted. Patient still adamantly refusing to go down to MRI. Per discussion with Dr. John Buitrago via TT on 09/08/2024 --> "His wounds are healthy enough that they shouldn't keep him inpatient. If he's refusing MRI and fighting with nurses and he doesn't want surgery for his back, he can be treated outpatient for the feet for sure." Wound care was onboard. L Foot WC--> Preliminarily growing Proteus mirabilis and Staphylococcus aureus. R Foot WC --> Preliminarily growing Pseudomonas aeruginosa and Staphylococcus aureus. Blood cultures NGTD. Now stopping IV ABX today; he completed at full 7-day course of IV daptomycin + Zosyn. T6 Compression Fracture S/P Fall: CT Thoracic Spine --> "Mild acute T6 compression deformity without retropulsion." CT also incidentally noted subacute T12 and L1 compression deformities. CXR w/ mild left basilar opacities favoring atelectasis. Encourage incentive spirometry. Pain control w/ home oxycodone dosing. Ortho spine consulted --> "He does not want to entertain surgery at this point in time. Ambulate ad harinder. No lifting over 5 pounds. Continue with current pain control. He should have a TLSO brace from his May consultation regarding his T12 and L1 compression fractures. This might be very uncomfortable though given his new T6 fracture. Therefore does not have to wear." PT/OT recommending rehab placement. Patient is currently awaiting placement. Acute CAUTI - RESOLVED Chronic Indwelling Hanna Catheter 2/ BPH: History of recurrent UTIs --> has grown Proteus mirabilis, Serratia marcescens in the last; UA appears infected this admission. Appears his Hanna catheter was last exchanged on 08/19/2024 per chart review therefore it was exchanged on 09/07. Continue Flomax/Proscar. Repeat urine culture unremarkable. ABX stopped today as per above. Chronic HFpEF, Aortic Valve Stenosis Bilateral Lower Extremity Lymphedema: Echo from 04/2024 --> LVEF = 60-65%, mild concentric LVH, mildly dilated LA, severely calcified AV/borderline severe to severe AV stenosis. Per admitting providers, patient has missed his Lasix and other medications for 4 days prior to presentation. Patient w/ 2+ BLE edema at time of admission. S/p 20mg IV Lasix on 09/06/2024. BLE venous doppler negative for DVT. Continue home po Lasix 20mg daily. Paroxysmal AFib/CAD/HTN/HLD: Continue Eliquis, metoprolol tartrate and ASA. Can resume Lipitor now that IV daptomycin is done. Uncontrolled DM Type II: Hgb A1c was previously 10.5% on 02/08/2024. Per admitting providers, patient with recent insulin noncompliance x 1 week. BSG was 491 on presentation. S/p IVF + insulin in the ED. Basal/bolus regimen while inpatient. BSG improving. Hgb A1c 13% this admission. Glycemic pharmacy, certified adaptive physical educator onboard. DVT Prophylaxis: On Eliquis LEAD FORMER - continue. Code Status: FULL CODE PCP: James Maria, Disposition: Anticipate discharge to [facility] [place] in 1-2 days, waiting to hear back from CM regarding acceptance. Patient inquired about long-term placement. Patient is currently homeless. Per admitting provider, patient is living in a van outside of his 's apartment. Farhana Sebastian, patient's , can be contacted at the following phone #: [phone]. Difficult time getting in touch with patient's , have left multiple voicemail messages. Patient seen in collaboration with Dr. Calzada. Please see addendum. I spent a total of 35 minutes coordinating, documenting, and providing care for this patient excluding time spent in the performance of separately billed services. This included personally reviewing all current laboratories and imaging studies, medical reconciliation, outpatient chart review and discussion with specialists. This chart was completed in part utilizing Speech Voice Recognition Software. Grammatical errors, random word insertions, pronoun errors, and incomplete sentences are an occasional consequence of this system due to software limitations, ambient noise, and hardware issues. Any formal questions or concerns about the content, text, or information contained within the body of this dictation should be directly addressed to the provider for clarification. Admission and Anticipated Discharge Date Admission Date: September 06, 2024 Supervising Physician Co-Signing Physician Notes Patient seen and examined independently. Discussed with her provider Patient seen and examined at bedside. He is comfortable; not in distress He participated well with PT OT Completed antibiotic course Awaiting placement Continue wound care while inpatient. I have reviewed the advanced practitioner's documentation, and I agree with, and take responsibility for the plan of care I spent a total of 20 minutes coordinating, documenting, and providing care for this patient excluding time spent in the performance of separately billed services. All of the aforementioned completed while collaborating with the assigned advanced practitioner for a full treatment plan Subjective Patient seen and examined at bedside. Communicated with the patient via whiteboard as he is extremely hard of hearing. Still having some mild back pain this morning. He continues to be cooperative with nursing staff. He is agreeable with placement still - waiting to hear from regarding [facility] [place]. Review of Systems Review of Systems: At least ten systems reviewed and negative, except as noted in the subjective section. Physical Exam Physical Exam: General: Ill-appearing, obese, extremely hard of hearing, NAD, laying down in bed, have to communicate with writing pad, A+Ox3. HEENT: Normocephalic, atraumatic. Conjunctivae normal, anicteric sclerae. External ear and nose normal, oropharynx normal. Respiratory: Normal respiratory effort, lungs clear to auscultation, no wheeze, rales, rhonchi. No accessory muscle use. Cardiovascular: Regular rate, regular rhythm, 2+ BLE edema/lymphedema. Vessels: No JVD. Abdomen/GI: Normal bowel sounds, soft, nontender to palpation of all quadrants. : Hanna catheter intact and draining clear, yellow urine without issue. No evidence of hematuria. Extremities/Musculoskeletal: No cyanosis or clubbing, extremities motor strength intact, moves all extremities. Neurologic: No focal deficits, CN's II-XI not formally tested but appear grossly intact bilaterally. Skin: Dry/intact wound dressings in place over both feet, personally did not directly visualize his wounds. Results & Data Results & Data Vital Signs (Past 12 Hours) Vital Signs Temp Pulse Resp BP Pulse Ox O2 Del Method 09/13/24 07:35 36.7 C 63 16 170/81 H 95 Room Air Laboratory Results Short CBC 09/13/24 Range/Units 06:46 WBC 9.25 (4.8-10.8) K/ul Hgb 10.5 L (14.0-18.0) g/dl Hct 32.5 L (42.0-52.0) % Plt Count 371 (130-400) K/uL BMP 09/13/24 06:46 Sodium 136 Potassium 3.9 Chloride 100 Carbon Dioxide 29 BUN 28 H Creatinine 1.72 H Glucose 128 H Calcium 8.8 (1) Fall Encounter type: initial encounter Qualified Code(s): W19.XXXA - Unspecified fall, initial encounter (2) Closed compression fracture of thoracic vertebra Encounter type: initial encounter Qualified Code(s): S22.000A - Wedge compression fracture of unspecified thoracic vertebra, initial encounter for closed fracture (3) Diabetic foot ulcers Diabetes mellitus type: type 2 Diabetic foot ulcer location: unspecified part of foot Laterality: unspecified laterality Non-pressure ulcer stage: unspecified non-pressure ulcer stage Qualified Code(s): E11.621 - Type 2 diabetes mellitus with foot ulcer; L97.509 - Non-pressure chronic ulcer of other part of unspecified foot with unspecified severity (4) Catheter-associated urinary tract infection Encounter type: sequela Indwelling urinary catheter type: indwelling urethral catheter Qualified Code(s): T83.511S - Infection and inflammatory reaction due to indwelling urethral catheter, sequela; N39.0 - Urinary tract infection, site not specified
--- NOTE | 2024-09-13 11:47 | Pharmacy Report ---
Pharmacy Glycemic Short Note 2 - Date of Service September 13, 2024 - Glycemic Short BSG Results (Last 24 hours): 09/12/24 09/12/24 09/13/24 16:40 20:37 06:46 Glucose 128 H POC Glucose 186 H 203 H 09/13/24 09/13/24 07:41 11:28 Glucose POC Glucose 133 H 213 H OUTPATIENT ANTIDIABETIC REGIMEN: * Lantus 22 units SQ qHS * Novolog 5 units SQ TID with meals * HbA1c: 13% (09/07/24) ASSESSMENT: 09/13: * BSGs [phone]/dL the last 24h. Received 17 units of basal and 9 units of bolus insulin yesterday. * Diet ordered- decreased PO the last 2 days. * Novolog carb ratio tightened slightly to 10gm/unit. No change to basal. 09/11 * Patient received total of 40 units of insulin yesterday, of which 17 units were basal * Fasting BSG improved, 134 mg/dL - will continue same basal dose * Lunch BSG trending down slightly, will loosen CR - previous data shows patient's BSGs trends down throughout the day 09/10 * Patient received total of 26 units of insulin yesterday, of which 15 units were basal insulin * Fasting BSG 187 mg/dL - trending upward, will titrate up to 17 units tonight * BSGs elevated yesterday evening, however patient wasn't in unit for lunch check and no insulin given and then insulin was refused for dinner check 09/08 * Mr Sebastian is a 79yo diabetic M, admitted with vertebral fracture, DM foot infection. * Pt received 37 units of insulin yesterday (22 units of basal insulin, 15 units of bolus). * Novolog parameters adjusted today, based on BSG trend yesterday, in an attempt to better meet patient's needs. May require further adjustment. Tighter glycemic control is warranted to facilitate wound/infection healing. * Lantus dose will be reduced slightly this evening d/t fasting BSG below goal. * Pharmacy will continue to follow and adjust regimen as indicated. PLAN FOR INPATIENT GLYCEMIC CONTROL: * Basal insulin * Lantus 17 units SQ qHS * Bolus insulin * NovoLog per scale ACHS or Q6hrs while NPO * Goal Range: Low 100 mg/dL - High 140 mg/dL * Correction Factor: 40 mg/dL/unit * Nutritional / Prandial insulin per carb ratio of 1 unit per 10 grams CHO consumed
--- NOTE | 2024-09-14 08:32 | Hospitalist Progress Note ---
Date of Service September 14, 2024 Assessment & Plan (1) Fall: (2) Closed compression fracture of thoracic vertebra: (3) Diabetic foot ulcers: (4) Catheter-associated urinary tract infection: Plan Selvin Sebastian is a 79y/o M with PMHx significant for uncontrolled DM type II, CK D stage III [baseline Cr ~1.4-2.0], diabetic polyneuropathy, chronic bilateral diabetic foot ulcers, paroxysmal atrial fibrillation [on Eliquis], chronic heart failure with preserved ejection fraction [EF = 55-59%, TTE 11/2023], HTN, dyslipidemia, coronary artery atherosclerosis, PAD, nonrheumatic aortic valve stenosis, BPH with obstruction/lower urinary tract symptoms [chronic indwelling Hanna catheter], recurrent UTIs, chronic anemia, bilateral foot deformity, Charcot's joint of right foot, right tympanic membrane perforation, multilevel degenerative disc disease, severe hearing loss of both ears, hoarding behavior, unsteady gait and bilateral lower extremity lymphedema who presented to the ED on 09/06/2024 with complaints of upper back pain after sustaining a fall. He was found to have an acute T6 compression deformity on admitting imaging. Bilateral Diabetic Foot Wounds: Patient follows w/ [facility] as an outpatient per chart review. Evidence of ulcerative wounds on his R plantar midfoot region and L plantar heel region. L Foot XR --> 3.6cm ulcer of the plantar heel pad, mild diffuse soft tissue swelling. R Foot XR --> Notable Charcot neuropathy, dislocation of Chopart's joint, extensive ankle/foot soft tissue swelling. Podiatry was consulted. Patient still adamantly refusing to go down to MRI. Per discussion with Dr. John Buitrago via TT on 09/08/2024 --> "His wounds are healthy enough that they shouldn't keep him inpatient. If he's refusing MRI and fighting with nurses and he doesn't want surgery for his back, he can be treated outpatient for the feet for sure." Wound care was onboard. L Foot WC--> Preliminarily growing Proteus mirabilis and Staphylococcus aureus. R Foot WC --> Preliminarily growing Pseudomonas aeruginosa and Staphylococcus aureus. Blood cultures NGTD. Now stopping IV ABX today; he completed at full 7-day course of IV daptomycin + Zosyn. T6 Compression Fracture S/P Fall: CT Thoracic Spine --> "Mild acute T6 compression deformity without retropulsion." CT also incidentally noted subacute T12 and L1 compression deformities. CXR w/ mild left basilar opacities favoring atelectasis. Encourage incentive spirometry. Pain control w/ home oxycodone dosing. Ortho spine consulted --> "He does not want to entertain surgery at this point in time. Ambulate ad harinder. No lifting over 5 pounds. Continue with current pain control. He should have a TLSO brace from his May consultation regarding his T12 and L1 compression fractures. This might be very uncomfortable though given his new T6 fracture. Therefore does not have to wear." PT/OT recommending rehab placement. Patient is currently awaiting placement. Acute CAUTI - RESOLVED Chronic Indwelling Hanna Catheter 2/ BPH: History of recurrent UTIs --> has grown Proteus mirabilis, Serratia marcescens in the last; UA appears infected this admission. Appears his Hanna catheter was last exchanged on 08/19/2024 per chart review therefore it was exchanged on 09/07. Continue Flomax/Proscar. Repeat urine culture unremarkable. ABX stopped today as per above. Chronic HFpEF, Aortic Valve Stenosis Bilateral Lower Extremity Lymphedema: Echo from 04/2024 --> LVEF = 60-65%, mild concentric LVH, mildly dilated LA, severely calcified AV/borderline severe to severe AV stenosis. Per admitting providers, patient has missed his Lasix and other medications for 4 days prior to presentation. Patient w/ 2+ BLE edema at time of admission. S/p 20mg IV Lasix on 09/06/2024. BLE venous doppler negative for DVT. Continue home po Lasix 20mg daily. Paroxysmal AFib/CAD/HTN/HLD: Continue Eliquis, metoprolol tartrate and ASA. Can resume Lipitor now that IV daptomycin is done. Uncontrolled DM Type II: Hgb A1c was previously 10.5% on 02/08/2024. Per admitting providers, patient with recent insulin noncompliance x 1 week. BSG was 491 on presentation. S/p IVF + insulin in the ED. Basal/bolus regimen while inpatient. BSG improving. Hgb A1c 13% this admission. Glycemic pharmacy, perinatal educator onboard. DVT Prophylaxis: On Eliquis [employer] - continue. Code Status: FULL CODE PCP: James Maria, Disposition: Anticipate discharge to [facility] in 1-2 days, waiting to hear back from CM regarding acceptance. Patient inquired about long-term placement. Patient is currently homeless. Per admitting provider, patient is living in a van outside of his 's apartment. Farhana Sebastian, patient's , can be contacted at the following phone #: [phone]. Difficult time getting in touch with patient's , have left multiple voicemail messages. Patient seen in collaboration with Dr. Calzada. Please see addendum. I spent a total of 35 minutes coordinating, documenting, and providing care for this patient excluding time spent in the performance of separately billed services. This included personally reviewing all current laboratories and imaging studies, medical reconciliation, outpatient chart review and discussion with specialists. This chart was completed in part utilizing Speech Voice Recognition Software. Grammatical errors, random word insertions, pronoun errors, and incomplete sentences are an occasional consequence of this system due to software limitations, ambient noise, and hardware issues. Any formal questions or concerns about the content, text, or information contained within the body of this dictation should be directly addressed to the provider for clarification. Admission and Anticipated Discharge Date Admission Date: September 06, 2024 Review of Systems Review of Systems: At least ten systems reviewed and negative, except as noted in the subjective section. Results & Data Results & Data Vital Signs (Past 12 Hours) Vital Signs Temp Pulse Pulse Resp BP Pulse Ox O2 Del Method 09/14/24 07:45 36.8 C 73 18 136/80 96 Room Air 09/13/24 20:45 36.7 C 64 16 145/74 H 96 Room Air (1) Fall Encounter type: initial encounter Qualified Code(s): W19.XXXA - Unspecified fall, initial encounter (2) Closed compression fracture of thoracic vertebra Encounter type: initial encounter Qualified Code(s): S22.000A - Wedge compression fracture of unspecified thoracic vertebra, initial encounter for closed fracture (3) Diabetic foot ulcers Diabetic foot ulcer location: unspecified part of foot Diabetes mellitus type: type 2 Laterality: unspecified laterality Non-pressure ulcer stage: unspecified non-pressure ulcer stage Qualified Code(s): E11.621 - Type 2 diabetes mellitus with foot ulcer; L97.509 - Non-pressure chronic ulcer of other part of unspecified foot with unspecified severity (4) Catheter-associated urinary tract infection Indwelling urinary catheter type: indwelling urethral catheter Encounter type: sequela Qualified Code(s): T83.511S - Infection and inflammatory reaction due to indwelling urethral catheter, sequela; N39.0 - Urinary tract infection, site not specified
[2024-09-14 12:00] VITALS: BP 128/76; PULSE 65; RESP 15; TEMP 97.7; O2SAT 94
--- NOTE | 2024-09-14 16:05 | Discharge Summary ---
Discharge Summary Date of Service September 14, 2024 Principal Dx & Hospital Course #1 = Principal Diagnosis (1) Fall: (2) Closed compression fracture of thoracic vertebra: (3) Diabetic foot ulcers: (4) Catheter-associated urinary tract infection: Antoni Sebastian is a 79y/o M with PMHx significant for uncontrolled DM type II, CKD stage III [baseline Cr ~1.4-2.0], diabetic polyneuropathy, chronic bilateral diabetic foot ulcers, paroxysmal atrial fibrillation [on Eliquis], chronic heart failure with preserved ejection fraction [EF = 55-59%, TTE 11/2023], HTN, dyslipidemia, coronary artery atherosclerosis, PAD, nonrheumatic aortic valve stenosis, BPH with obstruction/lower urinary tract symptoms [chronic indwelling Hanna catheter], recurrent UTIs, chronic anemia, bilateral foot deformity, Charcot's joint of right foot, right tympanic membrane perforation, multilevel degenerative disc disease, severe hearing loss of both ears, hoarding behavior, unsteady gait and bilateral lower extremity lymphedema who presented to the ED on 09/06/2024 with complaints of upper back pain after sustaining a fall. He was found to have an acute T6 compression deformity on admitting imaging. Bilateral Diabetic Foot Wounds: Patient follows w/ [facility] as an outpatient per chart review. Evidence of ulcerative wounds on his R plantar midfoot region and L plantar heel region. L Foot XR --> 3.6cm ulcer of the plantar heel pad, mild diffuse soft tissue swelling. R Foot XR --> Notable Charcot neuropathy, dislocation of Chopart's joint, extensive ankle/foot soft tissue swelling. Podiatry was consulted. Patient still adamantly refusing to go down to MRI. Per discussion with Dr. John Buitrago via TT on 09/08/2024 --> "His wounds are healthy enough that they shouldn't keep him inpatient. If he's refusing MRI and fighting with nurses and he doesn't want surgery for his back, he can be treated outpatient for the feet for sure." Wound care was onboard. L Foot WC--> Preliminarily growing Proteus mirabilis and Staphylococcus aureus. R Foot WC --> Preliminarily growing Pseudomonas aeruginosa and Staphylococcus aureus. Blood cultures NGTD. He completed at full 7-day course of IV daptomycin + Zosyn. T6 Compression Fracture S/P Fall: CT Thoracic Spine --> "Mild acute T6 compression deformity without retropulsion." CT also incidentally noted subacute T12 and L1 compression deformities. CXR w/ mild left basilar opacities favoring atelectasis. Encourage incentive spirometry. Pain control w/ home oxycodone dosing. Ortho spine consulted --> "He does not want to entertain surgery at this point in time. Ambulate ad harinder. No lifting over 5 pounds. Continue with current pain control. He should have a TLSO brace from his May consultation regarding his T12 and L1 compression fractures. This might be very uncomfortable though given his new T6 fracture. Therefore does not have to wear." PT/OT recommending rehab placement --> Patient being discharged to [facility]. Acute CAUTI - RESOLVED Chronic Indwelling Hanna Catheter 2/ BPH: History of recurrent UTIs --> has grown Proteus mirabilis, Serratia marcescens in the last; UA appears infected this admission. Appears his Hanna catheter was last exchanged on 08/19/2024 per chart review therefore it was exchanged on 09/07. Continue Flomax/Proscar. Repeat preliminary urine culture unremarkable, final result still pending. Chronic HFpEF, Aortic Valve Stenosis Bilateral Lower Extremity Lymphedema: Echo from 04/2024 --> LVEF = 60-65%, mild concentric LVH, mildly dilated LA, severely calcified AV/borderline severe to severe AV stenosis. Per admitting providers, patient has missed his Lasix and other medications for 4 days prior to presentation. Patient w/ 2+ BLE edema at time of admission. S/p 20mg IV Lasix on 09/06/2024. BLE venous doppler negative for DVT. Can continue home po Lasix 20mg daily. Paroxysmal AFib/CAD/HTN/HLD: Continue Eliquis, metoprolol tartrate, ASA and Lipitor. Uncontrolled DM Type II: Hgb A1c 13% this admission. Can resume home diabetic medications at time of discharge. Disposition: Patient is being discharged to [facility] for long-term placement. Patient seen in collaboration with Dr. Elizondo. Please see addendum. I spent a total of 55 minutes coordinating, documenting, and providing care for this patient excluding time spent in the performance of separately billed services. This included personally reviewing all current laboratories and imaging studies, medical reconciliation, outpatient chart review and discussion with specialists. This chart was completed in part utilizing Speech Voice Recognition Software. Grammatical errors, random word insertions, pronoun errors, and incomplete sentences are an occasional consequence of this system due to software limitations, ambient noise, and hardware issues. Any formal questions or concerns about the content, text, or information contained within the body of this dictation should be directly addressed to the provider for clarification. Notes For Next Care Provider Medication Changes From Visit No medication changes were made this admission. Admission HPI Per Admitting Provider The patient is a 79-year-old male with a past medical history of bilateral lower extremity lymphedema, DM 2, uncontrolled, HTN, chronic bilateral diabetic foot ulcers, right Charcot right foot, severe aortic stenosis, CHFEF 60-65%, A-fib on Eliquis, PAD, HLD, chronic indwelling Hanna catheter, BPH, recurrent UTIs, chronic anemia, severe hearing loss who presents to the ED on 09/06/2024 with complaints of upper back pain. Patient reports falling 7 days ago and having some back pain. He denies any shortness of breath but does report some left rib pain. He also reports his wounds on his foot worsening and inability to walk o joe the past week. He is currently homeless and lives in a van outside of his 's apartment. Per EMR, patient has some hoarding tendencies. Patient reports losing his medications he has been unable to take them for the past 4 days. On arrival to the ED labs remarkable for WBC 12, hemoglobin 12.5, sodium 130, chloride 92, BUN 25, creatinine 1.6, glucose 491, UA grossly positive the patient does have a chronic Hanna catheter Chest x-ray showed mild cardiomegaly without pulmonary edema, mild left basilar opacities Thoracic spine CT showed acute T6 compression deformity without retropulsion Subacute T12 and L1 compression deformities, progressively worsened vertebral body height loss The patient will be admitted for pain control and infectious workup for bilateral foot wounds Admission Exam Per Admitting Provider Constitutional: WD/WN, vitals as above + ill appearing and + morbidly obese; + not well nourished Eyes: PERRL, conjunctivae normal, anicteric sclerae ENMT: external ear and nose normal, oropharynx normal (Severely hard of hearing) Neck: trachea midline, no thyromegaly Respiratory: normal respiratory effort, lungs clear to auscultation Cardiovascular: Rate/Rhythm: regular rate Heart Sounds: + murmur Gastrointestinal (Abdomen): normal bowel sounds, soft, nontender, no hepatosplenomegaly (Left rib pain) Musculoskeletal: no cyanosis or clubbing, extremities motor strength 5/5 (Generalized weakness) Skin: no rashes, warm and dry (Bilateral foot wounds) Neurologic: PERRL, EOMI, accommodation nl, no face palsy, no dysarthria Psychiatric: A+Ox3, euthymic affect Genitourinary: no testicular masses, no penis abnormality (Chronic Hanna catheter) Lymphatic: no cervical or axillary lymphadenopathy Discharge Exam General: Ill-appearing, obese, extremely hard of hearing, NAD, laying down in bed, have to communicate with writing pad, A+Ox3. HEENT: Normocephalic, atraumatic. Conjunctivae normal, anicteric sclerae. External ear and nose normal, oropharynx normal. Respiratory: Normal respiratory effort, lungs clear to auscultation, no wheeze, rales, rhonchi. No accessory muscle use. Cardiovascular: Regular rate, regular rhythm, 2+ BLE edema/lymphedema. Vessels: No JVD. Abdomen/GI: Normal bowel sounds, soft, nontender to palpation of all quadrants. : Hanna catheter intact and draining clear, yellow urine without issue. No evidence of hematuria. Extremities/Musculoskeletal: No cyanosis or clubbing, extremities motor strength intact, moves all extremities. Neurologic: No focal deficits, CN's II-XI not formally tested but appear grossly intact bilaterally. Skin: Dry/intact wound dressings in place over both feet, personally did not directly visualize his wounds. Updated Medication List Medication Instructions Recorded Confirmed Type apixaban 5 mg tablet (Eliquis) 5 mg PO BID #60 tabs 08/18/23 09/06/24 Rx atorvastatin 40 mg tablet 40 mg PO QAM #30 tabs 08/18/23 09/06/24 Rx finasteride 5 mg tablet 5 mg PO DAILY #30 tabs 08/18/23 09/06/24 Rx insulin aspart U-100 100 unit/mL 5 unit (0.05 mL) subcut TIDM #15 mL 08/18/23 09/06/24 Rx (3 mL) subcutaneous pen (Novolog FlexPen U-100 Insulin aspart) pantoprazole 40 mg tablet,delayed 40 mg PO DAILY #30 tabs 08/18/23 09/06/24 Rx release tamsulosin 0.4 mg capsule 0.4 mg PO DAILY #30 caps 08/18/23 09/06/24 Rx insulin glargine 100 unit/mL (3 22 unit subcut HS 04/07/24 09/06/24 History mL) subcutaneous pen (Lantus Solostar U-100 Insulin) aspirin 81 mg tablet,delayed 81 mg PO QAM #30 tabs 04/22/24 09/06/24 Rx release L.acidop,casei,lactis,rham-B.lact,anthony 1 cap PO DAILY #10 caps 05/17/24 09/06/24 Rx 625 mg (10 billion cell) capsule (Advanced Probiotic) metoprolol tartrate 25 mg tablet 25 mg PO BID #60 tabs 05/17/24 09/06/24 Rx oxycodone 5 mg tablet 5 mg PO QID PRN pain #10 tabs 05/17/24 09/06/24 Rx polyethylene glycol 3350 17 gram 17 g PO DAILY PRN constipation #14 05/17/24 09/06/24 Rx oral powder packet (Miralax) ea sennosides 8.6 mg-docusate sodium 1 tab PO BID PRN constipation #30 05/17/24 09/06/24 Rx 50 mg tablet (Senokot-S) tabs furosemide 20 mg tablet 20 mg PO QAM 09/06/24 09/06/24 History Hospital Stay Data Consultations 09/06/24 14:40 ED Decision to Admit Stat 09/06/24 16:38 Consult Orthopedic Spine Surgery Routine Consult Podiatry Routine Diagnostic Imagining Performed 09/06/24 12:16 CT thoracic spine wo con Stat 09/07/24 US venous doppler LE BI Routine Pending Results Patient Have Any Pending Studies at Discharge: Yes Discharge Instructions Given to Patient (Per Discharging Provider) Follow-up with your primary care physician Dr. James Maria in 1 week upon discharge from rehab facility Follow-up with your waxer tender Dr.Andrew Buitrago for possible lower extremity reconstructive procedure as outpatient Follow-up with wound clinic as recommended Follow-up with your orthopedic spine surgeon as needed -- Continue TLSO brace as recommended by your orthopedics surgeon. No lifting over 5 pounds. -- Your final urine culture is pending at the time of discharge. Follow-up with your physician for results. --Continue wound care at rehab facility Seek immediate medical attention if your symptoms reoccur or worsen Please take all medications as instructed on discharge list below. Please call if you have any questions or problems. You can reach a [facility] hospitalist on duty at [facility] 24 hours a day by calling [phone] Total Time Total Time Spent Total Time Spent (In Minutes): 55 Supervising Physician Co-Signing Physician Notes Patient is seen on day of discharge. Offers no new complaints today. Patient to be discharged to rehab facility today. Reports mild back pain but otherwise no complaints. Patient completed treatment for CAR-T. Continue brace to help with T6 fracture. Needs follow-up with podiatry for management of foot wounds. I personally interviewed and examined at bedside. Patient's care is coordinated with Gilma Wood PA-C. I have reviewed the advanced practitioner's documentation, and I agree with plan of care. Please refer to the documentation above for details of patient's presentation and for discussion of other issues. I spent a total [id number] coordinating, documenting, and providing care for this patient excluding time spent in the performance of separately billed services.
[2024-09-14] MEDS ORDERED: LANTUS PER UNIT CHARGE SC SCH (21:00)
== END 2024-09-14 16:44 | DRG 552 ==
LOC: ED 11:42 → SUATTDRO 14:53 → 4W 14:53 → 3W 09-09 07:57

== ENCOUNTER 2025-03-15 10:42 | Inpatient (IN) ==
[2025-03-15] MEDS ORDERED: SODIUM CHLORIDE 0.9% 100 ML IV PRN ×2 (11:16→12:11)
--- NOTE | 2025-03-15 11:18 | Emergency Department Note ---
Impression & Plan Symptomatic anemia, Weakness ED Provider Note NAME: KATHARINE VANN AGE: 79 SEX: M : 1945 ARRIVES VIA: Ambulance INFORMANT: Patient ED PROVIDER(S): Norberto Cervantes DO CHIEF COMPLAINT: Weakness HPI: Patient is a 79-year-old male who presents the ER from assisted for weakness, confusion, and a low hemoglobin. Patient denies any headache or change in vision. No chest pain or shortness of breath. No nausea, vomiting, or diarrhea. No dysuria, urgency, or frequency. No other exacerbating or remitting factors. ADDITIONAL HISTORY OBTAINED: Per HPI Chronic Medical/Social Conditions Affecting Care: Per HPI PAST MEDICAL HISTORY:See Below PAST SURGICAL HISTORY:See Below FAMILY HISTORY:See Below SOCIAL HISTORY:See Below HOME MEDICATIONS:See Below ALLERGIES:See Below VITALS:See Below PHYSICAL EXAMINATION: GENERAL: Sitting up in bed, alert, chronically ill-appearing, disheveled EYE EXAM: normal conjunctiva. PERRL and EOM's grossly intact. OROPHARYNX:mucous membranes are moist NECK: supple, no nuchal rigidity, no adenopathy, non-tender LUNGS: Clear to auscultation. Normal chest wall mechanics HEART: no murmurs, S1 normal and S2 normal ABDOMEN: abdomen soft, non-tender, normo-active bowel sounds, no masses, no rebound or guarding. BACK: Back is symmetrical on inspection and there is no deformity, no midline tenderness, no CVA tenderness. SKIN: no rashes and no bruising UPPER EXTREMITIES: upper extremities are grossly normal. 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 Skin is clean dry and intact. NEURO EXAM: Normal sensorium, cranial nerves II-XII grossly intact, normal speech, no gross weakness of arms, no gross weakness of legs. MEDICAL DECISION MAKING: Patient is a 79-year-old male who presents to the ER for the below stated complaint. IV was established and blood work was obtained. Patient is on Eliquis. Hemoglobin trended down from 8 to 6. Labs show no significant leukocytosis. Mild anemia at 6.3. INR 1.1. BMP with a creatinine of 2.4 with a baseline which appears to be around 1.7. LFTs and bilirubin were unremarkable. Patient was typed and crossed and ordered 2 units of PRBCs while in the ER. Rectal was heme-negative. Performed by myself at bedside. Patient was updated bedside discussed case with the hospitalist for further evaluation management treatment. Consults/Care Managements Discussions: Per MDM Triage Nursing notes reviewed. Limited review of prior medical records performed Vital Signs: reviewed and remarkable for no significant abnormalities Differential diagnosis: Infection, dehydration, metabolic abnormality, hypo/hyperglycemia, electrolyte disturbance, anemia, hypoxia, cardiac sources, intracerebral event, toxicologic, neurologic, as well as other pathologies. ER treatment provided: See below Diagnostics interpreted by me include EKG and cardiac monitoring as listed below: -Cardiac Monitoring: An order was placed for continuous cardiac monitoring. The monitor shows a rate of 60 with A-fib rhythm. -ECG: none -Laboratory studies:Interpreted by me as stated above in MDM and shown below. Imaging studies: Xrays: As interpreted by me:none CTs show: none Procedures:none Critical Care: I have personally spent 35 minutes of critical care time in the direct management of this patient. This includes bedside care, interpretation of diagnostic studies, and testing, discussion with consultants, patient, and family members, and other required patient management activities. This 35 minutes is in excess of all separately billable procedures. Past Med/Surg History Problem List (Updated 03/15/25 @ 14:41 by Norberto Cervantes DO) Weakness (Acute) Symptomatic anemia (Acute) Catheter-associated urinary tract infection Diabetic foot ulcers Closed compression fracture of thoracic vertebra (Acute) Lymphedema (Chronic) Fall (Acute) Open wound of finger (Acute) Diabetic peripheral neuropathy associated with type 2 diabetes mellitus HTN (hypertension) Diabetic ulcer of right foot (Acute) Charcot foot due to diabetes mellitus Closed T12 fracture (Acute) Diabetic ulcer of left heel (Acute) Hyponatremia (Acute) Otitis externa of left ear Chronic indwelling Hanna catheter Otitis externa Ambulatory dysfunction Severe aortic stenosis Chronic heart failure with preserved ejection fraction (HFpEF) Ear drum perforation Hydronephrosis, bilateral Severe hearing loss Open wound of abdomen (Acute) Homeless (Acute) BPH (benign prostatic hyperplasia) Edema of both legs Hypertension Paroxysmal atrial fibrillation Diabetes mellitus, type II (Chronic) Dyslipidemia Medical History Asymptomatic hypertensive urgency Bilateral lower leg cellulitis Blister of finger Maggot infestation Catheter-associated urinary tract infection CESAR (acute kidney injury) Surgical History History of ear surgery age 19, mastoid H/O shoulder surgery S/P foot surgery, left Family History Brother Diabetes Social History Smoking Status: Former smoker Tobacco Type: Cigarettes Second Hand Exposure: No; Do You Dip or Chew Tobacco: No; Preferred Language: Armenian Communication Ability: Impaired Communication Ability Comment: Hearing Loss. Visual Impairment: Limited Hearing Ability: Use of Hearing Aid Prepress Proofer Required: No Beliefs That Will Affect Care: None marital status: Current Living Situation: Homeless Current Living Situation Comment: Patient lives in car. current occupational status: retired How many Children do You have: 3 Feels Safe at Home: Yes during the past year weight has: remained stable Dental Care, Regularly: No Physical Activity Frequency: Does not Exercise Assistive Devices: Cane and Walker Allergies Allergies Allergy/AdvReac Type Severity Reaction Status Date / Time lisinopril Allergy Severe Swelling Verified 03/15/25 12:33 of Face/Lips/Tongue hydrochlorothiazide Allergy Unknown Unknown - Unverified 03/15/25 12:33 On file w/ [facility] Home Meds Home Medications Medication Instructions Recorded Confirmed insulin glargine 100 unit/mL (3 5 unit subcut HS 04/07/24 03/15/25 mL) subcutaneous pen (Lantus Solostar U-100 Insulin) furosemide 20 mg tablet 20 mg PO QAM 09/06/24 03/15/25 Saccharomyces boulardii 250 mg 250 mg PO AMHS 03/15/25 03/15/25 capsule (Florastor) acetaminophen 325 mg tablet 650 mg PO Q6H PRN Fever greater 03/15/25 03/15/25 (Tylenol) than 100/Pain amitriptyline 10 mg tablet 30 mg PO HS 03/15/25 03/15/25 atorvastatin 40 mg tablet 40 mg PO HS 03/15/25 03/15/25 bisacodyl 10 mg rectal suppository 10 mg NM DAILY PRN Constipation 03/15/25 03/15/25 (Dulcolax (bisacodyl)) docusate sodium 100 mg tablet 100 mg PO [facility] 03/15/25 03/15/25 doxycycline monohydrate 100 mg 100 mg PO BID 03/15/25 03/15/25 tablet finasteride 5 mg tablet 5 mg PO QAM 03/15/25 03/15/25 glucagon 1 mg solution for 1 mg IM DIRECTED PRN 03/15/25 03/15/25 injection (Glucagon Emergency Kit) Hypoglycemia insulin lispro 100 unit/mL 1 sliding scale dose subcut 03/15/25 03/15/25 subcutaneous solution (Humalog USEASDIRECTD U-100 Insulin) insulin lispro 100 unit/mL 2 unit subcut TIDWMEAL 03/15/25 03/15/25 subcutaneous solution (Humalog U-100 Insulin) magnesium hydroxide 400 mg/5 mL 2,400 mg PO DAILY PRN Constipation 03/15/25 03/15/25 oral suspension (Milk of Magnesia) metoprolol tartrate 25 mg tablet 25 mg PO AMHS 03/15/25 03/15/25 oxycodone 5 mg tablet 5 mg PO Q6H PRN Pain 03/15/25 03/15/25 pantoprazole 40 mg tablet,delayed 40 mg PO QAM 03/15/25 03/15/25 release pregabalin 75 mg capsule 75 mg PO [facility]HS 03/15/25 03/15/25 sennosides 8.6 mg-docusate sodium 1 tab PO AMHS constipation 03/15/25 03/15/25 50 mg tablet (Senokot-S) sodium phosphates 19 gram-7 118 ml NM DAILY PRN Constipation 03/15/25 03/15/25 gram/118 mL enema (Fleet Enema) tamsulosin 0.4 mg capsule 0.4 mg PO HS 03/15/25 03/15/25 Previous Rx's Medication Instructions Recorded apixaban 5 mg tablet (Eliquis) 5 mg PO BID #60 tabs 08/18/23 aspirin 81 mg tablet,delayed 81 mg PO QAM #30 tabs 04/22/24 release polyethylene glycol 3350 17 gram 17 g PO DAILY PRN constipation #14 05/17/24 oral powder packet (Miralax) ea Results & Data (ED) Vital Signs Vital Signs - 24 hr 03/15/25 10:42 03/15/25 10:52 03/15/25 11:03 Temperature 36.8 C Temperature Source Oral Pulse Rate 65 67 67 Pulse Rate [Right Brachial] Pulse Rhythm Regular Pulse Rhythm [Right Brachial] Pulse Strength [Right Brachial] Respiratory Rate 14 14 Respiratory Effort / Characteristics Non-Labored Respiratory Depth Normal Respiratory Pattern Regular Blood Pressure 111/68 Blood Pressure [Right Arm] Blood Pressure Mean 82 Blood Pressure Mean [Right Arm] Blood Pressure Position [Right Arm] Pulse Oximetry 95 95 Oxygen Delivery Method Room Air Room Air Sepsis Recent Fever Within 48 Hours No Sepsis New/Unexplained Change in Mental Status N/A Sepsis Action Taken by Nursing No Action Required 03/15/25 11:09 Temperature Temperature Source Pulse Rate Pulse Rate [Right Brachial] 63 Pulse Rhythm Pulse Rhythm [Right Brachial] Regular Pulse Strength [Right Brachial] Normal Respiratory Rate 18 Respiratory Effort / Characteristics Non-Labored Respiratory Depth Normal Respiratory Pattern Regular Blood Pressure Blood Pressure [Right Arm] 110/47 L Blood Pressure Mean Blood Pressure Mean [Right Arm] 68 Blood Pressure Position [Right Arm] Lying Pulse Oximetry 92 Oxygen Delivery Method Room Air Sepsis Recent Fever Within 48 Hours Sepsis New/Unexplained Change in Mental Status Sepsis Action Taken by Nursing Laboratory Data 03/15/25 11:31 03/15/25 11:31 Lab Results 03/15/25 03/15/25 03/15/25 Range/Units 11:30 11:31 12:42 WBC 8.57 (4.8-10.8) K/ul RBC 2.29 L (4.70-6.10) M/uL Hgb 6.3 L* (14.0-18.0) g/dl Hct 19.9 L* (42.0-52.0) % MCV 86.9 (80.0-100.0) fL MCH 27.5 (25.0-34.0) pg MCHC 31.7 L (32.0-36.0) g/dL RDW Std Deviation 51.3 H (36.4-46.3) fL RDW Coeff of Scott 16.0 H (11.5-14.5) % Plt Count 335 (130-400) K/uL MPV 9.1 L (9.4-12.4) fL Immature Gran % (Auto) 0.4 % Neut % (Auto) 60.6 % Lymph % (Auto) 23.3 % Geary % (Auto) 11.7 % Eos % (Auto) 3.6 % Baso % (Auto) 0.4 % Neut # (Auto) 5.20 (1.40-6.50) K/uL Lymph # (Auto) 2.00 (1.20-3.40) K/uL Geary # (Auto) 1.00 H (0.11-0.59) K/uL Eos # (Auto) 0.31 (0.00-0.50) K/uL Baso # (Auto) 0.03 (0.00-0.20) K/uL Immature Gran # (Auto) 0.03 (0.01-0.20) K/uL Polychromasia 1+ PT 13.6 H (9.0-12.0) Seconds INR 1.3 H (0.9-1.1) Sodium 136 (136-145) mmol/L Potassium 3.9 (3.5-5.1) mmol/L Chloride 100 (98-107) mmol/L Carbon Dioxide 32 (21-32) mmol/L Anion Gap 4 (3-11) BUN 39 H (6-23) mg/dl Creatinine 2.40 H (0.6-1.4) mg/dl Est Cr Clr Drug Dosing 24.4 ml/min eGFR 26.78 BUN/Creatinine Ratio 16.3 (10-20) Glucose 178 H (70-99(Fasting)) mg/dl Calcium 8.1 L (8.6-10.3) mg/dl Total Bilirubin 0.4 (0.2-1.0) mg/dl AST 14 (13-39) U/L ALT 7 (7-52) U/L Alkaline Phosphatase 48 (34-104) U/L Total Protein 6.9 (6.0-8.3) gm/dl Albumin 2.4 L (3.4-5.0) gm/dl Globulin 4.5 H (2.5-4.0) gm/dl Albumin/Globulin Ratio 0.5 L (0.9-2) Lipase 7 L (11-82) U/L Blood Type O Positive Blood Type Recheck O Positive Antibody Screen NEGATIVE Crossmatch See Detail Discharge Plan Visit Data Chief Complaint: Weakness Stated Complaint: LETHARGIC, WEAKNESS ED Provider: Norberto Cervantes Discharge Problem: Symptomatic anemia, Weakness Condition: Fair Forms Stand Alone Forms: [facility] Prescriptions Prescriptions: No Action Eliquis 5 mg tablet 5 mg PO BID Qty: 60 0RF insulin glargine [Lantus Solostar U-100 Insulin] 100 unit/mL (3 mL) insulin pen 5 unit SUBCUT HS aspirin 81 mg Tablet,Delayed Release (Dr/Ec) 81 mg PO QAM Qty: 30 0RF polyethylene glycol 3350 [Miralax] 17 gram Powder In Packet 17 g PO DAILY PRN (Reason: constipation) Qty: 14 0RF furosemide 20 mg tablet 20 mg PO QAM acetaminophen [Tylenol] 325 mg Tablet 650 mg PO Q6H MDD 3g/24hrs PRN (Reason: Fever greater than 100/Pain) doxycycline monohydrate 100 mg Tablet 100 mg PO BID Rx Instructions: Start Date 03/13/25 magnesium hydroxide [Milk of Magnesia] 400 mg/5 mL Suspension 2,400 mg PO DAILY PRN (Reason: Constipation) Rx Instructions: Give 30ml by mouth as needed for constipation after no BM for three days, administer MPM on 7-3 shift amitriptyline 10 mg Tablet 30 mg PO HS bisacodyl [Dulcolax (bisacodyl)] 10 mg Suppository 10 mg NM DAILY PRN (Reason: Constipation) Rx Instructions: Insert 1 unit rectally as needed for constipation, give suppository on day 3; - shift if no BM after MOM Fleet Enema 19-7 gram/118 mL Enema 118 ml NM DAILY PRN (Reason: Constipation) Rx Instructions: Insert 1 unit rectally as needed for constipation if no BM after dulcolax administer fleets on 7-3 shift; day 4 insulin lispro [Humalog U-100 Insulin] 100 unit/mL Solution 2 unit subcut TIDWMEAL insulin lispro [Humalog U-100 Insulin] 100 unit/mL Solution 1 sliding scale dose SUBCUT USEASDIRECTD Rx Instructions: Subcutaneously before meals and at bedtime for DM. 350-400 = 8units; 401-450 = 12units; 451-500 = 16units; 501-550 = 18units. Recheck in 1 hour, report result to MD/EXCHANGE TELLER. BSG<90, BSG>551 Glucagon Emergency Kit (human) 1 mg Recon Soln 1 mg IM DIRECTED PRN (Reason: Hypoglycemia) docusate sodium 100 mg Tablet 100 mg PO AMHS Saccharomyces boulardii [Florastor] 250 mg Capsule 250 mg PO AMHS Rx Instructions: Start Date 03/10/25 x5 weeks pregabalin 75 mg Capsule 75 mg PO [facility] atorvastatin 40 mg tablet 40 mg PO HS sennosides-docusate sodium [Senokot-S] 8.6-50 mg tablet 1 tab PO AMHS pantoprazole 40 mg tablet,delayed release (DR/EC) 40 mg PO QAM finasteride 5 mg tablet 5 mg PO QAM oxycodone 5 mg tablet 5 mg PO Q6H PRN (Reason: Pain) metoprolol tartrate 25 mg tablet 25 mg PO AMHS tamsulosin 0.4 mg capsule 0.4 mg PO HS Referrals Referrals: [facility] [Primary Care Provider] -
[2025-03-15 11:54] LABS: Hematocrit (blood only) 19.9 % (42.0-52.0); Hemoglobin 6.3 g/dl (14.0-18.0); Mean Corpuscular Hemoglobin 27.5 pg (25.0-34.0); Mean Corpuscular Hgb Conc 31.7 g/dL (32.0-36.0); Mean Corpuscular Volume 86.9 fL (80.0-100.0); Mean Platelet Volume 9.1 fL (9.4-12.4); Platelet Count 335 K/uL (130-400); RDW Standard Deviation 51.3 fL (36.4-46.3); Red Blood Count 2.29 M/uL (4.70-6.10); White Blood Count 8.57 K/ul (4.8-10.8)
[2025-03-15 12:11] LABS: Alanine Aminotransferase 7 U/L (7-52); Albumin Globulin Ratio 0.5 (0.9-2); Albumin Level 2.4 gm/dl (3.4-5.0); Alkaline Phosphatase 48 U/L (34-104); Anion Gap 4 (3-11); Aspartate Aminotransferase 14 U/L (13-39); BUN Creatinine Ratio 16.3 (10-20); Basophils # (auto) 0.03 K/uL (0.00-0.20); Basophils % (auto) 0.4 %; Bilirubin,Total 0.4 mg/dl (0.2-1.0); Blood Urea Nitrogen 39 mg/dl (6-23); Calcium 8.1 mg/dl (8.6-10.3); Carbon Dioxide 32 mmol/L (21-32); Chloride 100 mmol/L (98-107); Creatinine Clr Calc Pharmacy 24.4 ml/min; Eosinophils # (auto) 0.31 K/uL (0.00-0.50); Eosinophils % (auto) 3.6 %; Globulin 4.5 gm/dl (2.5-4.0); Glucose 178 mg/dl (70-99(Fasting)); Immature Granulocytes # (auto) 0.03 K/uL (0.01-0.20); Immature Granulocytes % (auto) 0.4 %; Lipase 7 U/L (11-82); Lymphocytes % (auto) 23.3 %; Monocytes % (auto) 11.7 %; Neutrophils % (auto) 60.6 %; Polychromasia 1+; Potassium 3.9 mmol/L (3.5-5.1); Sodium 136 mmol/L (136-145); Total Protein 6.9 gm/dl (6.0-8.3)
--- NOTE | 2025-03-15 12:59 | History & Physical Report ---
Date of Service March 15, 2025 Assessment & Plan (1) Symptomatic anemia: (2) S/P BKA (below knee amputation) unilateral: (3) Acute kidney injury superimposed on CKD: (4) HTN (hypertension): (5) Severe aortic stenosis: (6) Diabetes mellitus, type II: (7) Paroxysmal atrial fibrillation: Plan Mr. Sebastian is a 79 year old gentleman with past medical history remarkable for atrial fibrillation with RVR on eliquis, uncontrolled diabetes, prior T12/L1 compression fractures, ambulatory dysfunction, osteomyelitis s/p right BKA, severe hearing loss, chronic HFpEF, moderate to severe aortic stenosis, HTN, HLD, BPH presented to [facility] ED due to abnormal outpatient labs for acute anemia, as well as generalized weakness. Patient is s/p BKA on 03/02 #Acute on chronic anemia, suspect blood loss 2/2 post op/ multifactorial Reportedly 1 UPRBC postop on 03/04, suspect slow losses 2/2 post op recovery of not baseline 8-11, just noted to be 7 in 01/2025 preoperatively, suspect lab error or some discrepancy for reported hgb of 13 preoperatively iron <10, TIBC 185, Ferritin low suspicion for GIB however, given poor historian and risk factors (eliquis/asa) will start PPI BID, hemoccult stools and keep on clears for now Follow up anemia labs Repeat HH at 2100 s/p 1 UPRBC in ED hold eliquis, continue asa for now, scds transfuse < 7 hgb #s/p BKA of RLE 2/2 nonhealing ulcer #MRSA infection Outpatient records note BKA RLE on 03/02 wound culture with MRSA, discharged on clindamycin then switched to doxycycline Continue doxycycline Consult Ortho ([place] follow up 03/24) however, would prefer opinion of wound healing and any other recommendations Wound care consult #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 III Cr stable, baseline ~ 1.7 Cr. 2.4 likely prerenal 2/2 anemia anemia labs ordered Repeat BMP and consider further eval if uptrending Urine clear on exam, recent CESAR post op of 2.98 #BPH #Chronic indwelling Yee Malfunction of yee:: Exchanged on 04/15/24 Follows [facility] urology Pt states yee has been chronic for several months and is exchanged routinely Continue tamsulosin, finasteride exchanged yee cath 03/15 UA obtained in ED, however, asymptomatic can follow up but no indications to treat empirically #chronic back pain #Prior compression fractures K padprn continue analgesia prn PT/OT #Chronic Diastolic CHF #Moderate to Severe Aortic Stenosis appears euvolemic, trace edema of LLE --Echo 04/2024: EF 60-65 % with left atrium mildly dilated, aortic valve severely calcified, borderline severe to aortic stenosis is present, compared to previous study in 07/24/23 the severity of aortic stenosis has progressed. Continue metoprolol continue lasix 20mg tomorrow am Monitor volume status closely #T2DM, uncontrolled with hyperglycemia and neuropathy A1C ordered continue glargine 5 U and SSI while admitted #PAF Chronic stable hold Eliquis continue metoprolol #PAD continue asa #Severe hearing loss #H/O Left Otitis Externa, Maggot infestation of L ear right hear is best ear for hearing difficulties no concerns with ears/pain this admission DVT Px hold Eliquis, SCDS DNR/DNI PCP Dr. James Maria admit PCU/tele Admission and Anticipated Discharge Date Admission Date: Time spent evaluating patient, direct bedside care, chart review, placing orders, interpretation of diagnostic studies, discussion with consultants, patient, and family members, as well as other required patient management activities is 75 minutes. History of Present Illness Chief Complaint: Blood loss anemia, weakness Primary Care Provider: [facility] Mr. Sebastian is a 79 year old gentleman with past medical history remarkable for atrial fibrillation with RVR on eliquis, uncontrolled diabetes, prior T12/L1 compression fractures, ambulatory dysfunction, osteomyelitis s/p right BKA, severe hearing loss, chronic HFpEF, moderate to severe aortic stenosis, HTN, HLD, BPH presented to [facility] ED due to abnormal outpatient labs for acute anemia, as well as generalized weakness. Patient is a poor historian, mostly iso illness and severe hearing loss. He states that he feels weak and he doesn't remember any bleeding, but also states he "cant look at [his] leg" so he doesn't know if its been oozing alot He denies fevers, chills, diarrhea, abdominal pain or suprapubic pain. He states he just is tired and his back hurts as always. He does not report hematochezia, melena or other hematemesis. He does report feeling a bit nauseated, but denies vomiting. Patient recently [place] on 03/02-03/09 [place] [facility] and underwent a right BKA for osteomyelitis iso nonhealing wound. Patient required pressor support post operatively 2/2 severe . Patient was resumed on his full dose eliquis on discharge 03/10. Patient with complicated postoperative course with post-op pain control requiring ON CALL, as well as post-op anemia requiring 1 UPRBC for a hgb drop from reportedly from 13 to 7.1 (baseline in record review is 9-11, however in 01/2025 noted to be 7s preoperatively). He also experienced an CESAR to 2.98. Patient was with MRSA infection and discharged on clindamycin q8 then transitioned to doxycycline on 03/13 to be continued until staple removal (anticipated 03/24) Patient has notable socioeconomic disparities, including homelessness as he lives in a van. Previously was discharged to [facility] in 2023 during last confinement. In the ED, vitals were notable for BP of 110-120s, HR of 60s, and O2 sat of low-mid 90s on room air . No imaging obtained ED interventions: 1 UPRBC Patient to be admitted to PCU for further evaluation and management of suspected acute blood loss anemia 2/2 post op Allergies Allergy/AdvReac Type Severity Reaction Status Date / Time lisinopril Allergy Severe Swelling Verified 03/15/25 12:33 of Face/Lips/Tongue hydrochlorothiazide Allergy Unknown Unknown - Unverified 03/15/25 12:33 On file w/ [facility] Home Medications Medication Instructions Recorded Confirmed Type apixaban 5 mg tablet (Eliquis) 5 mg PO BID #60 tabs 08/18/23 03/15/25 Rx insulin glargine 100 unit/mL (3 5 unit subcut HS 04/07/24 03/15/25 History mL) subcutaneous pen (Lantus Solostar U-100 Insulin) aspirin 81 mg tablet,delayed 81 mg PO QAM #30 tabs 04/22/24 03/15/25 Rx release polyethylene glycol 3350 17 gram 17 g PO DAILY PRN constipation #14 05/17/24 03/15/25 Rx oral powder packet (Miralax) ea furosemide 20 mg tablet 20 mg PO QAM 09/06/24 03/15/25 History Saccharomyces boulardii 250 mg 250 mg PO AMHS 03/15/25 03/15/25 History capsule (Florastor) acetaminophen 325 mg tablet 650 mg PO Q6H PRN Fever greater 03/15/25 03/15/25 History (Tylenol) than 100/Pain amitriptyline 10 mg tablet 30 mg PO HS 03/15/25 03/15/25 History atorvastatin 40 mg tablet 40 mg PO HS 03/15/25 03/15/25 History bisacodyl 10 mg rectal suppository 10 mg WV DAILY PRN Constipation 03/15/25 03/15/25 History (Dulcolax (bisacodyl)) docusate sodium 100 mg tablet 100 mg PO AMHS 03/15/25 03/15/25 History doxycycline monohydrate 100 mg 100 mg PO BID 03/15/25 03/15/25 History tablet finasteride 5 mg tablet 5 mg PO QAM 03/15/25 03/15/25 History glucagon 1 mg solution for 1 mg IM DIRECTED PRN 03/15/25 03/15/25 History injection (Glucagon Emergency Kit) Hypoglycemia insulin lispro 100 unit/mL 1 sliding scale dose subcut 03/15/25 03/15/25 History subcutaneous solution (Humalog USEASDIRECTD U-100 Insulin) insulin lispro 100 unit/mL 2 unit subcut TIDWMEAL 03/15/25 03/15/25 History subcutaneous solution (Humalog U-100 Insulin) magnesium hydroxide 400 mg/5 mL 2,400 mg PO DAILY PRN Constipation 03/15/25 03/15/25 History oral suspension (Milk of Magnesia) metoprolol tartrate 25 mg tablet 25 mg PO AMHS 03/15/25 03/15/25 History oxycodone 5 mg tablet 5 mg PO Q6H PRN Pain 03/15/25 03/15/25 History pantoprazole 40 mg tablet,delayed 40 mg PO QAM 03/15/25 03/15/25 History release pregabalin 75 mg capsule 75 mg PO AMHS 03/15/25 03/15/25 History sennosides 8.6 mg-docusate sodium 1 tab PO AMHS constipation 03/15/25 03/15/25 History 50 mg tablet (Senokot-S) sodium phosphates 19 gram-7 118 ml WV DAILY PRN Constipation 03/15/25 03/15/25 History gram/118 mL enema (Fleet Enema) tamsulosin 0.4 mg capsule 0.4 mg PO HS 03/15/25 03/15/25 History Past Med/Surg History Problem List (Updated 03/15/25 @ 15:15 by Nelli Sanches MD) Acute kidney injury superimposed on CKD S/P BKA (below knee amputation) unilateral Weakness (Acute) Symptomatic anemia (Acute) Catheter-associated urinary tract infection Diabetic foot ulcers Closed compression fracture of thoracic vertebra (Acute) Lymphedema (Chronic) Fall (Acute) Open wound of finger (Acute) Diabetic peripheral neuropathy associated with type 2 diabetes mellitus HTN (hypertension) Diabetic ulcer of right foot (Acute) Charcot foot due to diabetes mellitus Closed T12 fracture (Acute) Diabetic ulcer of left heel (Acute) Hyponatremia (Acute) Otitis externa of left ear Chronic indwelling Yee catheter Otitis externa Ambulatory dysfunction Severe aortic stenosis Chronic heart failure with preserved ejection fraction (HFpEF) Ear drum perforation Hydronephrosis, bilateral Severe hearing loss Open wound of abdomen (Acute) Homeless (Acute) BPH (benign prostatic hyperplasia) Edema of both legs Hypertension Paroxysmal atrial fibrillation Diabetes mellitus, type II (Chronic) Dyslipidemia Medical History Asymptomatic hypertensive urgency Bilateral lower leg cellulitis Blister of finger Maggot infestation Catheter-associated urinary tract infection CESAR (acute kidney injury) Surgical History History of ear surgery age 19, mastoid H/O shoulder surgery S/P foot surgery, left Family History Brother Diabetes Social History Smoking Status: Former smoker Tobacco Type: Cigarettes Second Hand Exposure: No; Do You Dip or Chew Tobacco: No; Preferred Language: Moldovan Communication Ability: Impaired Communication Ability Comment: Hearing Loss. Visual Impairment: Limited Hearing Ability: Use of Hearing Aid Sheet Sorter Required: No Beliefs That Will Affect Care: None marital status: Current Living Situation: Homeless Current Living Situation Comment: Patient lives in car. current occupational status: retired How many Children do You have: 3 Feels Safe at Home: Yes during the past year weight has: remained stable Dental Care, Regularly: No Physical Activity Frequency: Does not Exercise Assistive Devices: Cane and Walker Review of Systems Review of Systems: Constitutional: (-) fever/chills, (-) recent loss of weight, (-) appetite changes, (-) night sweats. Head: (-) headache, (-) dizziness. Eye: (-) blurring of vision, (-) double vision, (-) redness. Ear: (-) hearing loss, (-) discharge, (-) vertigo Nose: (-) discharge, (-) bleeding, (-) congestion, (-) post nasal drip. Throat: (-) sore throat, (-) hoarseness of voice, (-) odynophagia. Cardiovascular: (-) chest pain, (-) palpitations, (-) syncope, (-) orthopnea, (- ) PND, (-) leg swelling. Respiratory: (-) shortness of breath, (-) cough, (-) wheezing, (-) hemoptysis. Neuro: (-) weakness in extremities, (-) numbness, (-) tingling, (-) tremor. Gastrointestinal: (-) belly pain, (-) belly distension, (-) nausea, (-) vomiting, (-) diarrhea, (-) constipation Genitourinary: (-) hematuria, (-) dysuria, (-) polyuria, (-) hesitancy, (-) frequency, (-) urinary incontinence. Musculoskeletal: (-) myalgia, (-) arthralgia. Skin: (-) rashes. Endocrine: (-) heat/cold intolerance. Psychiatry: (-) depression, (-) hallucination. Physical Exam Physical Exam: GENERAL APPEARANCE: AxOx2-3, chronically ill, no acute distress. HEENT: NC, AT. MMM. EOMI, clear conjunctiva, oropharynx clear. NECK: Supple without lymphadenopathy. No stiffness or restricted ROM. HEART: RRR, JESSICA+ LUNGS: CTAB, moving air well. No crackles or wheezes are heard. ABDOMEN: Soft, nontender, nondistended with good bowel sounds heard. BACK: No CVAT, no obvious deformity. EXTREMITIES: non-pitting edema LLE, R stump with misa and ecchymosis around incision sites NEUROLOGICAL: Grossly nonfocal. Alert and oriented, moving all 4 extremities. CN not formally tested but appear grossly intact. Observed to ambulate with normal gait. Skin: Warm and dry without any rash. Results & Data Results & Data Vital Signs (Past 12 Hours) Vital Signs Temp Pulse Pulse Resp BP BP Pulse Ox 03/15/25 11:09 63 18 110/47 L 92 03/15/25 11:03 67 03/15/25 10:52 67 14 95 03/15/25 10:42 36.8 C 65 14 111/68 95 O2 Del Method 03/15/25 11:09 Room Air 03/15/25 11:03 03/15/25 10:52 Room Air 03/15/25 10:42 Room Air Laboratory Results Short CBC 03/15/25 Range/Units 11:31 WBC 8.57 (4.8-10.8) K/ul Hgb 6.3 L* (14.0-18.0) g/dl Hct 19.9 L* (42.0-52.0) % Plt Count 335 (130-400) K/uL BMP 03/15/25 11:31 Sodium 136 Potassium 3.9 Chloride 100 Carbon Dioxide 32 BUN 39 H Creatinine 2.40 H Glucose 178 H Calcium 8.1 L Liver Function 03/15/25 Range/Units 11:31 Total Bilirubin 0.4 (0.2-1.0) mg/dl AST 14 (13-39) U/L ALT 7 (7-52) U/L Alkaline Phosphatase 48 (34-104) U/L Albumin 2.4 L (3.4-5.0) gm/dl Medications Administered Home Medications Medication Instructions Recorded Confirmed Last Taken apixaban 5 mg tablet (Eliquis) 5 mg PO BID #60 tabs 08/18/23 03/15/25 03/15/25 insulin glargine 100 unit/mL (3 5 unit subcut HS 04/07/24 03/15/25 03/14/25 mL) subcutaneous pen (Lantus Solostar U-100 Insulin) aspirin 81 mg tablet,delayed 81 mg PO QAM #30 tabs 04/22/24 03/15/25 03/15/25 release polyethylene glycol 3350 17 gram 17 g PO DAILY PRN constipation #14 05/17/24 03/15/25 Unknown oral powder packet (Miralax) ea furosemide 20 mg tablet 20 mg PO QAM 09/06/24 03/15/25 03/15/25 Saccharomyces boulardii 250 mg 250 mg PO AMHS 03/15/25 03/15/25 03/15/25 capsule (Florastor) acetaminophen 325 mg tablet 650 mg PO Q6H PRN Fever greater 03/15/25 03/15/25 Unknown (Tylenol) than 100/Pain amitriptyline 10 mg tablet 30 mg PO HS 03/15/25 03/15/25 03/14/25 atorvastatin 40 mg tablet 40 mg PO HS 03/15/25 03/15/25 03/14/25 bisacodyl 10 mg rectal suppository 10 mg WV DAILY PRN Constipation 03/15/25 03/15/25 Unknown (Dulcolax (bisacodyl)) docusate sodium 100 mg tablet 100 mg PO AMHS 03/15/25 03/15/25 03/15/25 doxycycline monohydrate 100 mg 100 mg PO BID 03/15/25 03/15/25 03/15/25 tablet finasteride 5 mg tablet 5 mg PO QAM 03/15/25 03/15/25 03/15/25 glucagon 1 mg solution for 1 mg IM DIRECTED PRN 03/15/25 03/15/25 Unknown injection (Glucagon Emergency Kit) Hypoglycemia insulin lispro 100 unit/mL 1 sliding scale dose subcut 03/15/25 03/15/25 03/15/25 subcutaneous solution (Humalog USEASDIRECTD U-100 Insulin) insulin lispro 100 unit/mL 2 unit subcut TIDWMEAL 03/15/25 03/15/25 03/15/25 subcutaneous solution (Humalog U-100 Insulin) magnesium hydroxide 400 mg/5 mL 2,400 mg PO DAILY PRN Constipation 03/15/25 03/15/25 Unknown oral suspension (Milk of Magnesia) metoprolol tartrate 25 mg tablet 25 mg PO AMHS 03/15/25 03/15/25 03/15/25 oxycodone 5 mg tablet 5 mg PO Q6H PRN Pain 03/15/25 03/15/25 Unknown pantoprazole 40 mg tablet,delayed 40 mg PO QAM 03/15/25 03/15/25 03/15/25 release pregabalin 75 mg capsule 75 mg PO AMHS 03/15/25 03/15/25 03/15/25 sennosides 8.6 mg-docusate sodium 1 tab PO AMHS constipation 03/15/25 03/15/25 03/15/25 50 mg tablet (Senokot-S) sodium phosphates 19 gram-7 118 ml WV DAILY PRN Constipation 03/15/25 03/15/25 Unknown gram/118 mL enema (Fleet Enema) tamsulosin 0.4 mg capsule 0.4 mg PO HS 03/15/25 03/15/25 03/14/25 (6) Diabetes mellitus, type II Diabetes mellitus longterm insulin use: with longterm use Diabetes mellitus complication status: with skin complications Diabetes mellitus complication detail: with foot ulcer Qualified Code(s): E11.621 - Type 2 diabetes mellitus with foot ulcer; L97.509 - Non-pressure chronic ulcer of other part of unspecified foot with unspecified severity; Z79.4 - [facility] (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
[2025-03-15 14:32] LABS: INR 1.3 (0.9-1.1); Prothrombin Time 13.6 Seconds (9.0-12.0)
[2025-03-15 14:44] LABS: Iron < 10 mcg/dl (35-175); Total Iron Binding Cap Calc 185 mcg/dl (250-450); Transferrin 132 mg/dl (200-360)
[2025-03-15 14:46] LABS: Immature Retic Fraction 10.2 % (2.3-15.9); Reticulated Hemoglobin 25.4 pg (28.2-36.6); Reticulocyte % 1.68 % (0.50-2.00)
[2025-03-15 15:04] LABS: Ferritin 235.7 ng/ml (8-388)
[2025-03-15 15:29] LABS: Folate (Folic Acid),Ser orPlas 8.54 ng/ml (>5.38)
[2025-03-15] MEDS ORDERED: GLUCOSE 10 TAB/TUBE PO PRN (18:22)
[2025-03-15] MEDS ORDERED: ACETAMINOPHEN 325 MG TAB PO PRN (18:22)
[2025-03-15] MEDS ORDERED: GLUCOSE 40% GEL 15 GM TUBE PO PRN (18:22)
[2025-03-15] MEDS ORDERED: DEXTROSE 50% 50 ML SYRINGE IV PRN (18:22)
[2025-03-15] MEDS ORDERED: GLUCAGON FOR INJ 1 MG VIAL SQ PRN (18:22)
[2025-03-15] MEDS ORDERED: bisacodyL 10 MG SUPP PR PRN (18:22)
[2025-03-15 18:36] LABS: Appearance Urine Cloudy (Clear); Bacteria Urine Automated None Seen (None Seen); Bilirubin Urine Negative (Negative); Blood Urine 3+ (Negative); Color Urine Yellow; Epithelial Cell Urine Auto 0-2 /hpf (0-2); Glucose Urine UA Trace (Negative); Granular Casts Urine Present /lpf (None Prsent); Ketones Urine Negative (Negative); Leukocyte Esterase Urine 3+ (Negative); Nitrite Urine Negative (Negative); Protein Urine 1+ (Negative); RBC Urine Automated >20 /hpf (0-2); Urobilinogen Urine Negative (Negative); WBC Urine Automated >50 /hpf (0-5)
[2025-03-15] MEDS: INSULIN ASPART PER UNIT CHARGE SC SCH (19:54)
[2025-03-15] MEDS: TAMSULOSIN HCL 0.4 MG CAP PO SCH (19:55)
[2025-03-15] MEDS: AMITRIPTYLINE HCL 10 MG TAB PO SCH (19:55)
[2025-03-15] MEDS: METOPROLOL TARTRATE 25 MG TAB PO SCH (19:56)
[2025-03-15] MEDS: ATORVASTATIN 40 MG TAB PO SCH (19:56)
[2025-03-15] MEDS: DOXYCYCLINE HYCLATE 100 MG CAP PO SCH (19:56)
[2025-03-15] MEDS: SACCHAROMYCES BOULARDII 250 MG CAP PO SCH (19:56)
[2025-03-15] MEDS: DOCUSATE SODIUM/SENNA 50/8.6MG TAB PO SCH (20:03)
[2025-03-15] MEDS: PREGABALIN 75 MG CAP PO SCH (20:03)
[2025-03-15] MEDS: DOCUSATE SODIUM 100 MG CAP PO SCH (20:03)
[2025-03-15] MEDS: PANTOprazole 40 MG/10 ML SYR IV SCH (22:10)
[2025-03-15] MEDS: LANTUS PER UNIT CHARGE SC SCH (22:11)
[2025-03-16] MEDS: oxyCODONE HCL IR 5 MG TAB (IMMEDIATE RELEASE) PO PRN (00:33)
[2025-03-16 01:25] LABS: Hemoglobin 8.8 g/dl (14.0-18.0)
[2025-03-16] MEDS: FINASTERIDE 5 MG TAB PO SCH (08:33)
[2025-03-16] MEDS: FUROSEMIDE 20 MG TAB PO SCH (08:34)
[2025-03-16] MEDS: ASPIRIN 81 MG ECTAB PO SCH (08:34)
[2025-03-16 09:24] LABS: Estimated Average Glucose 131 mg/dl; Hemoglobin A1C 6.2 % (4.5-5.6)
[2025-03-16 09:50] LABS: BUN Creatinine Ratio 15.3 (10-20); Blood Urea Nitrogen 36 mg/dl (6-23); Carbon Dioxide 26 mmol/L (21-32); Chloride 100 mmol/L (98-107); Glucose 125 mg/dl (70-99(Fasting))
[2025-03-16 10:06] LABS: Hematocrit (blood only) 23.7 % (42.0-52.0); Hemoglobin 7.9 g/dl (14.0-18.0); Mean Corpuscular Hemoglobin 28.7 pg (25.0-34.0); Mean Corpuscular Hgb Conc 33.3 g/dL (32.0-36.0); Mean Corpuscular Volume 86.2 fL (80.0-100.0); Platelet Count 361 K/uL (130-400); RDW Coefficient of Variation 15.5 % (11.5-14.5); RDW Standard Deviation 48.7 fL (36.4-46.3); Red Blood Count 2.75 M/uL (4.70-6.10)
--- NOTE | 2025-03-16 10:42 | Orthopedic Consultation ---
Date of Consultation March 16, 2025 Assessment & Plan (1) S/P BKA (below knee amputation) unilateral: The patient surgical incision looks good. Given his diabetes, I would leave his lisa in a bit longer. He is currently 14 days post surgery, and it would not hurt to leave these in until 18 to 20 days given his diabetes. There is no sign of wound infection at this point. Continue to protect the area. If he is still admitted on Thursday or Thursday, we can take them out in the hospital. If he is discharged, he may either have them removed at our office or at the orthopedic office in [place]. We will continue to monitor while he is admitted. Continue DVT prophylaxis per the Hospitalist service. Continue antibiotic coverage per the Hospitalist service as well. PT and OT have already been ordered, though he reportedly does not/can not participate. Supervising Physician Co-Signing Physician Notes I saw and examined the patient, formulated the plan, and performed the substantive portion of the visit. Agree with the above note. He will follow-up with Dr. Delacruz's office in [place] for routine postoperative care. History of Present Illness Reason for Consultation: Evaluation of right BKA Attending Physician: Carlos Bains DO History of Present Illness This 79-year-old male with a history of insulin-dependent diabetes, hypertension, GERD, elevated cholesterol, acute kidney injury, lymphedema, CHF, severe aortic stenosis, atrial fibrillation, BPH, homelessness, and severe hearing loss, is seen today in his room. He is unable to provide any history. The patient is currently sleeping and does not arouse to verbal or physical stimuli. He is apparently very hard of hearing and has an auxiliary hearing device present. Despite use of this, he does not wake up. Review of his medical records reveals that he had a below-knee amputation done 03/[address] Delacruz at [facility]. Cultures are reportedly positive for MRSA. We have been asked to provide an opinion on his surgical wound status. Allergies Allergy/AdvReac Type Severity Reaction Status Date / Time lisinopril Allergy Severe Swelling Verified 03/15/25 12:33 of Face/Lips/Tongue hydrochlorothiazide Allergy Unknown Unknown - Unverified 03/15/25 12:33 On file w/ [facility] Home Medications Medication Instructions Recorded Confirmed Type apixaban 5 mg tablet (Eliquis) 5 mg PO BID #60 tabs 08/18/23 03/15/25 Rx insulin glargine 100 unit/mL (3 5 unit subcut HS 04/07/24 03/15/25 History mL) subcutaneous pen (Lantus Solostar U-100 Insulin) aspirin 81 mg tablet,delayed 81 mg PO QAM #30 tabs 04/22/24 03/15/25 Rx release polyethylene glycol 3350 17 gram 17 g PO DAILY PRN constipation #14 05/17/24 03/15/25 Rx oral powder packet (Miralax) ea furosemide 20 mg tablet 20 mg PO QAM 09/06/24 03/15/25 History Saccharomyces boulardii 250 mg 250 mg PO AMHS 03/15/25 03/15/25 History capsule (Florastor) acetaminophen 325 mg tablet 650 mg PO Q6H PRN Fever greater 03/15/25 03/15/25 History (Tylenol) than 100/Pain amitriptyline 10 mg tablet 30 mg PO HS 03/15/25 03/15/25 History atorvastatin 40 mg tablet 40 mg PO HS 03/15/25 03/15/25 History bisacodyl 10 mg rectal suppository 10 mg MT DAILY PRN Constipation 03/15/25 03/15/25 History (Dulcolax (bisacodyl)) docusate sodium 100 mg tablet 100 mg PO AMHS 03/15/25 03/15/25 History doxycycline monohydrate 100 mg 100 mg PO BID 03/15/25 03/15/25 History tablet finasteride 5 mg tablet 5 mg PO QAM 03/15/25 03/15/25 History glucagon 1 mg solution for 1 mg IM DIRECTED PRN 03/15/25 03/15/25 History injection (Glucagon Emergency Kit) Hypoglycemia insulin lispro 100 unit/mL 1 sliding scale dose subcut 03/15/25 03/15/25 History subcutaneous solution (Humalog USEASDIRECTD U-100 Insulin) insulin lispro 100 unit/mL 2 unit subcut TIDWMEAL 03/15/25 03/15/25 History subcutaneous solution (Humalog U-100 Insulin) magnesium hydroxide 400 mg/5 mL 2,400 mg PO DAILY PRN Constipation 03/15/25 03/15/25 History oral suspension (Milk of Magnesia) metoprolol tartrate 25 mg tablet 25 mg PO AMHS 03/15/25 03/15/25 History oxycodone 5 mg tablet 5 mg PO Q6H PRN Pain 03/15/25 03/15/25 History pantoprazole 40 mg tablet,delayed 40 mg PO QAM 03/15/25 03/15/25 History release pregabalin 75 mg capsule 75 mg PO AMHS 03/15/25 03/15/25 History sennosides 8.6 mg-docusate sodium 1 tab PO AMHS constipation 03/15/25 03/15/25 History 50 mg tablet (Senokot-S) sodium phosphates 19 gram-7 118 ml MT DAILY PRN Constipation 03/15/25 03/15/25 History gram/118 mL enema (Fleet Enema) tamsulosin 0.4 mg capsule 0.4 mg PO HS 03/15/25 03/15/25 History Patient History Medical History Asymptomatic hypertensive urgency Bilateral lower leg cellulitis Blister of finger Maggot infestation CESAR (acute kidney injury) Surgical History History of ear surgery age 19, mastoid H/O shoulder surgery S/P foot surgery, left Family History Brother Diabetes Social History Smoking Status: Former smoker Tobacco Type: Cigarettes Smoking End Date: quit early ; Second Hand Exposure: No; Do You Dip or Chew Tobacco: No; Tobacco Cessation Education Requested by Patient: No Hx Alcohol Use: Yes Alcohol type: beer Alcohol Intake Frequency: 2-3 x/Week Hx Substance Use: No Preferred Language: South African Communication Ability: Effective Communication Ability Comment: Hearing Loss. Visual Impairment: Limited Hearing Ability: Use of Hearing Aid Manager Play Required: No Beliefs That Will Affect Care: None marital status: Current Living Situation: [facility] Current Living Situation Comment: c care current occupational status: retired How many Children do You have: 3 Other Information That Helps Us Care for You: No Feels Safe at Home: Yes Safety Concerns: Feels Safe At This Time during the past year weight has: remained stable Dental Care, Regularly: No Physical Activity Frequency: Does not Exercise Assistive Devices: Denture - Upper, Denture - Lower, Glasses and Other Assistive Devices Comment: super ear hearing assistive device Review of Systems Review of Systems: All systems reviewed & are unremarkable except as noted in HPI & below Physical Exam Physical Exam: General: Well-developed, elderly white male, in no apparent distress. Currently sleeping. Does not wake to verbal or physical stimuli. Skin: Warm and dry with good turgor. No rashes. He has a healing surgical incision present on the right lower leg from previous BKA. Lisa are in plac e. Wound edges are well-approximated. No significant erythema. No ecchymosis. No appreciable edema. There is a small area of scab present on the lateral corner of the wound closure. No active bleeding or drainage. The area is nonfluctuant. Stump appears to be healing well. No areas of excessive warmth. He does not exhibit any signs of pain with palpation of the stump. The skin is warm and the flap appears viable. There is capillary refill to the skin. Musculoskeletal: The patient is unable to cooperate with today's exam. Knee flexion and extension is unable to be assessed. Neurologic: Gross sensation is unable to be assessed secondary to current patient condition. Results & Data Vital Signs (Past 12 Hours) Vital Signs Temp Pulse Pulse Resp BP Pulse Ox O2 Del Method 03/16/25 10:02 Nasal Cannula 03/16/25 08:22 37.2 C 88 18 110/61 96 Room Air 03/16/25 07:24 81 03/16/25 03:04 37.9 C H 73 20 128/58 L 96 Nasal Cannula 03/15/25 23:02 36.4 C L 56 L 18 144/74 H 99 Nasal Cannula O2 Flow Rate 03/16/25 10:02 2 03/16/25 08:22 03/16/25 07:24 03/16/25 03:04 2 03/15/25 23:02 2 Laboratory Results CBC obtained this morning shows a white count of 13.30. H&H of 7.9 and 23.7. Platelets 361,000. INR 1.3 with PT 13.6. BUN of 36 with creatinine 2.35. Electrolytes hemolyzed. Glucose this morning was 125. Hemoglobin A1c is 6.2. LFTs from yesterday are unremarkable.
[2025-03-16 11:28] LABS: Magnesium 1.6 mg/dl (1.7-2.4); Phosphorus 4.1 mg/dl (2.5-4.9); Potassium 3.8 mmol/L (3.5-5.1)
--- NOTE | 2025-03-16 11:55 | Hospitalist Progress Note ---
Date of Service March 16, 2025 Assessment & Plan (1) Symptomatic anemia: Plan: Suspect multifactorial, iron deficiency, blood loss from BKA, chronic disease, chronic renal failure (2) S/P BKA (below knee amputation) unilateral: (3) Acute kidney injury superimposed on CKD: (4) HTN (hypertension): (5) Severe aortic stenosis: (6) Diabetes mellitus, type II: (7) Paroxysmal atrial fibrillation: (8) Hypomagnesemia: Plan Patient presented from [facility] with symptomatic anemia. Tolerated transfusion PRBCs x 1 unit. Hemoglobin has improved, no evidence of active blood loss. Continue to monitor hemoglobin daily Iron studies consistent with significant deficiency, IV iron x 1 today Continue to hold anticoagulation Replace magnesium Communication with case management, patient not a bed hold at [facility] will need to reapply for authorization Continue to monitor glucose with insulin coverage Reviewed orthopedics evaluation consultation, overall feels as though incision and stump looks appropriate at this stage postoperatively. Recommending continuing to maintain misa for an additional several days. No additional concerns for infection. Voicemail left at 's phone number Admission and Anticipated Discharge Date Admission Date: March 15, 2025 Subjective Patient tolerated blood transfusion, no significant complaints at this time. Physical Exam Physical Exam: Constitutional: Alert, weak HEENT: Mucous membranes moist. Lungs: decreased breath sounds, few crackles CV: S1-S2, regular Abdomen: Soft, nontender, nondistended Extremities: Status postRight BKA, incision is clean, some mild redness at the stump, suspect may be due to edema Neuro: Generally weak Psych: Flat affect Results & Data Results & Data Vital Signs (Past 12 Hours) Vital Signs Temp Pulse Pulse Resp BP Pulse Ox O2 Del Method 03/16/25 11:38 36.8 C 63 18 142/66 H 93 Room Air 03/16/25 10:02 Nasal Cannula 03/16/25 08:22 37.2 C 88 18 110/61 96 Room Air 03/16/25 07:24 81 03/16/25 03:04 37.9 C H 73 20 128/58 L 96 Nasal Cannula O2 Flow Rate 03/16/25 11:38 03/16/25 10:02 2 03/16/25 08:22 03/16/25 07:24 03/16/25 03:04 2 (6) Diabetes mellitus, type II Diabetes mellitus alf insulin 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
[2025-03-16] MEDS: SODIUM FERRIC GLUCONATE 125 MG in SODIUM CHLORIDE 0.9% 100 ML IV SCH (13:02)
[2025-03-16] MEDS: MAGNESIUM SULFATE / D5W 1 GM/100 ML BAG IV SCH (13:07)
[2025-03-16] MEDS: PANTOprazole 40 MG TAB PO SCH (20:29)
[2025-03-17 07:24] LABS: Hematocrit (blood only) 23.3 % (42.0-52.0); Hemoglobin 7.4 g/dl (14.0-18.0); Mean Corpuscular Hgb Conc 31.8 g/dL (32.0-36.0); Mean Corpuscular Volume 88.3 fL (80.0-100.0); Mean Platelet Volume 9.3 fL (9.4-12.4); Platelet Count 350 K/uL (130-400); RDW Coefficient of Variation 15.4 % (11.5-14.5); RDW Standard Deviation 49.8 fL (36.4-46.3); Red Blood Count 2.64 M/uL (4.70-6.10); White Blood Count 11.63 K/ul (4.8-10.8)
[2025-03-17 07:38] LABS: BUN Creatinine Ratio 14.6 (10-20); Calcium 8.2 mg/dl (8.6-10.3); Creatinine Clr Calc Pharmacy 20.2 ml/min; Magnesium 2.3 mg/dl (1.7-2.4); Potassium 3.8 mmol/L (3.5-5.1)
[2025-03-17] MEDS: POLYETHYLENE (MIRALAX) 17 GM PACK PO PRN (08:43)
--- NOTE | 2025-03-17 10:17 | Orthopedic Progress Note ---
Date of Service March 17, 2025 Assessment & Plan (1) S/P BKA (below knee amputation) unilateral: Plan: The patient surgical incision looks good. Given his diabetes, I would leave his misa in a bit longer. He is currently 15 days post surgery, and it would not hurt to leave these in until 18 to 20 days given his diabetes. There is no sign of wound infection at this point. Continue to protect the area. If he is still admitted on Thursday or Thursday, we can take them out in the hospital. If he is discharged, he may either have them removed at our office or at the orthopedic office in [place]. Continue DVT prophylaxis per the Hospitalist service. Continue antibiotic coverage per the Hospitalist service as well. PT and OT have already been ordered, though he reportedly does not/can not participate. Admission and Anticipated Discharge Date Admission Date: March 15, 2025 Subjective 79-year-old male seen today for follow-up of a right below the knee amputation performed by Dr. Delacruz in [place] on March 02. Patient was admitted to the [facility] due to being colonized with MRSA after his cultures obtained during the procedure. Patient is very pleasant this morning. He is very hard of hearing. He states that he does not have any pain in the stump. He states that he does have an appointment scheduled with the orthopedic group in [place] but is not sure when it is. Currently he denies chest pain, shortness of breath, fever, chills, sweats or phantom pain. Review of Systems Review of Systems: All systems reviewed & are unremarkable except as noted in Subjective Physical Exam Physical Exam: Right lower extremity: Surgical incision site is closed completely with misa left in place. There is some mild edema and erythema but no warmth or ecchymosis. There is no active drainage. Wound appears to be healing very well. Patient is able to flex the knee to near 90 degrees and lift the stump without difficulty. He is able to detect light sensation to touch around the surgical incision site. Results & Data Vital Signs (Past 12 Hours) Vital Signs Temp Pulse Resp BP Pulse Ox O2 Del Method O2 Flow Rate 03/17/25 08:35 Nasal Cannula 2 03/17/25 07:50 36.6 C 67 16 124/76 100 Nasal Cannula 2 Diagnostic Findings Laboratory Results WBC 11.63 K/ul (4.8-10.8) H 03/17/25 06:55 RBC 2.64 M/uL (4.70-6.10) L 03/17/25 06:55 Hgb 7.4 g/dl (14.0-18.0) L 03/17/25 06:55 Hct 23.3 % (42.0-52.0) L 03/17/25 06:55 MCV 88.3 fL (80.0-100.0) 03/17/25 06:55 MCH 28.0 pg (25.0-34.0) 03/17/25 06:55 MCHC 31.8 g/dL (32.0-36.0) L 03/17/25 06:55 RDW Std Deviation 49.8 fL (36.4-46.3) H 03/17/25 06:55 RDW Coeff of Scott 15.4 % (11.5-14.5) H 03/17/25 06:55 Plt Count 350 K/uL (130-400) 03/17/25 06:55 MPV 9.3 fL (9.4-12.4) L 03/17/25 06:55 Immature Gran % (Auto) 0.4 % 03/15/25 11:31 Neut % (Auto) 60.6 % 03/15/25 11:31 Lymph % (Auto) 23.3 % 03/15/25 11:31 [place] % (Auto) 11.7 % 03/15/25 11:31 Eos % (Auto) 3.6 % 03/15/25 11:31 Baso % (Auto) 0.4 % 03/15/25 11:31 Reticulocyte % (Auto) 1.68 % (0.50-2.00) 03/15/25 11:31 Neut # (Auto) 5.20 K/uL (1.40-6.50) 03/15/25 11:31 Lymph # (Auto) 2.00 K/uL (1.20-3.40) 03/15/25 11:31 [place] # (Auto) 1.00 K/uL (0.11-0.59) H 03/15/25 11:31 Eos # (Auto) 0.31 K/uL (0.00-0.50) 03/15/25 11:31 Baso # (Auto) 0.03 K/uL (0.00-0.20) 03/15/25 11:31 Reticulocyte # 0.040 10^6/uL (0.020-0.100) 03/15/25 11:31 Immature Gran # (Auto) 0.03 K/uL (0.01-0.20) 03/15/25 11:31 Polychromasia 1+ 03/15/25 11:31 Immature Retic Fraction 10.2 % (2.3-15.9) 03/15/25 11:31 Retic Hgb Content 25.4 pg (28.2-36.6) L 03/15/25 11:31 PT 13.6 Seconds (9.0-12.0) H 03/15/25 11:31 INR 1.3 (0.9-1.1) H 03/15/25 11:31 Sodium 136 mmol/L (136-145) 03/17/25 06:55 Potassium 3.8 mmol/L (3.5-5.1) 03/17/25 06:55 Chloride 99 mmol/L (98-107) 03/17/25 06:55 Carbon Dioxide 31 mmol/L (21-32) 03/17/25 06:55 Anion Gap 6 (3-11) 03/17/25 06:55 BUN 39 mg/dl (6-23) H 03/17/25 06:55 Creatinine 2.67 mg/dl (0.6-1.4) H D 03/17/25 06:55 Est Cr Clr Drug Dosing 20.2 ml/min 03/17/25 06:55 eGFR 23.56 03/17/25 06:55 BUN/Creatinine Ratio 14.6 (10-20) 03/17/25 06:55 Glucose 132 mg/dl (70-99(Fasting)) H 03/17/25 06:55 POC Glucose 139 mg/dl (70-99) H 03/17/25 06:55 Estimat Average Glucose 131 mg/dl 03/16/25 09:00 Hemoglobin A1c 6.2 % (4.5-5.6) H 03/16/25 09:00 Calcium 8.2 mg/dl (8.6-10.3) L 03/17/25 06:55 Phosphorus 4.1 mg/dl (2.5-4.9) 03/16/25 10:46 Magnesium 2.3 mg/dl (1.7-2.4) 03/17/25 06:55 Iron < 10 mcg/dl (35-175) L 03/15/25 11:31 TIBC 185 mcg/dl (250-450) L 03/15/25 11:31 Transferrin 132 mg/dl (200-360) L 03/15/25 11:31 Transferrin % Sat TNP 03/15/25 11:31 Ferritin 235.7 ng/ml (8-388) 03/15/25 11:31 Total Bilirubin 0.4 mg/dl (0.2-1.0) 03/15/25 11:31 AST 14 U/L (13-39) 03/15/25 11:31 ALT 7 U/L (7-52) 03/15/25 11:31 Alkaline Phosphatase 48 U/L (34-104) 03/15/25 11:31 Total Protein 6.9 gm/dl (6.0-8.3) 03/15/25 11:31 Albumin 2.4 gm/dl (3.4-5.0) L 03/15/25 11:31 Globulin 4.5 gm/dl (2.5-4.0) H 03/15/25 11:31 Albumin/Globulin Ratio 0.5 (0.9-2) L 03/15/25 11:31 Lipase 7 U/L (11-82) L 03/15/25 11:31 Vitamin B12 210 pg/ml (180-914) 03/15/25 11:31 Folate 8.54 ng/ml (>5.38) 03/15/25 11:31 Urine Color Yellow 03/15/25 16:59 Urine Appearance Cloudy (Clear) A 03/15/25 16:59 Urine pH 6.0 (4.5-7.5) 03/15/25 16:59 Ur Specific [place] 1.010 (1.000-1.030) 03/15/25 16:59 Urine Protein 1+ (Negative) H 03/15/25 16:59 Urine Glucose (UA) Trace (Negative) H 03/15/25 16:59 Urine Ketones Negative (Negative) 03/15/25 16:59 Urine Blood 3+ (Negative) H 03/15/25 16:59 Urine Nitrite Negative (Negative) 03/15/25 16:59 Urine Bilirubin Negative (Negative) 03/15/25 16:59 Urine Urobilinogen Negative (Negative) 03/15/25 16:59 Ur Leukocyte Esterase 3+ (Negative) H 03/15/25 16:59 Urine WBC (Auto) >50 /hpf (0-5) H 03/15/25 16:59 Urine RBC (Auto) >20 /hpf (0-2) H 03/15/25 16:59 U Hyaline Cast (Auto) 3-5 /lpf (0-2) H 03/15/25 16:59 U Epithel Cells (Auto) 0-2 /hpf (0-2) 03/15/25 16:59 Urine Bacteria (Auto) None Seen (None Seen) 03/15/25 16:59 Granular Casts Present /lpf (None Prsent) A 03/15/25 16:59 Urine Yeast Present (None Prsent) A 03/15/25 16:59 Urine Comment 03/15/25 16:59 Nasal Screen MRSA (PCR) Negative (Negative) 03/16/25 00:30 Blood Type O Positive 03/15/25 11:30 Blood Type Recheck O Positive 03/15/25 12:42 Antibody Screen NEGATIVE 03/15/25 11:30 Crossmatch See Detail 03/15/25 11:30
--- NOTE | 2025-03-17 11:17 | Hospitalist Progress Note ---
Date of Service March 17, 2025 Assessment & Plan (1) Symptomatic anemia: Plan: Suspect multifactorial, iron deficiency, blood loss from BKA, chronic disease, chronic renal failure (2) S/P BKA (below knee amputation) unilateral: (3) Acute kidney injury superimposed on CKD: (4) HTN (hypertension): (5) Severe aortic stenosis: (6) Diabetes mellitus, type II: (7) Paroxysmal atrial fibrillation: (8) Hypomagnesemia: Plan Patient presented with symptomatic anemia, multifactorial. Received 1 unit PRBCs and IV iron yesterday. Continue to monitor hemoglobin trended slightly down today, may just be equilibrating. No evidence of acute or active bleeding Creatinine continues to increase, suspicious for possible volume overload. Patient has not had chest x-ray. With patient's subjective symptoms of shortnes s of breath will check chest x-ray. Patient may need additional Lasix. Versus additional volume resuscitation for his acute on chronic renal failure. If hemoglobin continues to decrease may benefit from additional PRBCs Continue to hold anticoagulation, However will start heparin for VTE prophylaxis Case management [facility] Phone calls to both patient and and son, no answer Admission and Anticipated Discharge Date Admission Date: March 15, 2025 Subjective Patient does not offer any specific complaints. Nursing reports that the patient "feels better on oxygen" but his O2 sat has been in the 90s. Physical Exam Physical Exam: Constitutional: Alert, drowsy but able to be awakened HEENT: Mucous membranes moist. Lungs: Decreased breath sounds, few crackles at bases CV: S1-S2, regular Abdomen: Soft, nontender, nondistended Extremities: Right BKA, some edema surrounding the stump, no edema in left lower extremity Neuro: No focal deficits, generalized weakness Psych: Cooperative, normal mood Results & Data Results & Data Vital Signs (Past 12 Hours) Vital Signs Temp Pulse Resp BP Pulse Ox O2 Del Method O2 Flow Rate 03/17/25 08:35 Nasal Cannula 2 03/17/25 07:50 36.6 C 67 16 124/76 100 Nasal Cannula 2 Diagnostic Findings Reviewed imaging, laboratory and diagnostic studies. Pertinent findings as below. 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
--- NOTE | 2025-03-17 11:37 | XRay Report ---
XR chest 1V portable CLINICAL HISTORY: sob COMPARISON STUDY: 09/06/2024 FINDINGS: Stable mild cardiomegaly without pulmonary vascular congestion. There is interval patchy op acity at the right lung base. No pleural effusion or pneumothorax. IMPRESSION: Right lung base pneumonia. ACT 112: Negative or not required by law. Electronically signed by: Del Ghosh M.D. 03/17/2025 11:36 AM
[2025-03-17] MEDS: FUROSEMIDE 40 MG/4 ML VIAL IV ONE (15:04)
[2025-03-17] MEDS: POTASSIUM CHLORIDE CRTAB 20 MEQ TABCR PO STA (15:05)
[2025-03-17 16:09] LABS: Hematocrit (blood only) 22.8 % (42.0-52.0); Hemoglobin 7.4 g/dl (14.0-18.0)
[2025-03-18 07:05] LABS: Hemoglobin 7.5 g/dl (14.0-18.0); Mean Corpuscular Hemoglobin 28.2 pg (25.0-34.0); Mean Corpuscular Hgb Conc 32.6 g/dL (32.0-36.0); Mean Corpuscular Volume 86.5 fL (80.0-100.0); Mean Platelet Volume 9.5 fL (9.4-12.4); Platelet Count 381 K/uL (130-400); RDW Coefficient of Variation 15.3 % (11.5-14.5); RDW Standard Deviation 48.6 fL (36.4-46.3); Red Blood Count 2.66 M/uL (4.70-6.10); White Blood Count 9.03 K/ul (4.8-10.8)
[2025-03-18 07:30] LABS: Calcium 8.4 mg/dl (8.6-10.3); Creatinine Clr Calc Pharmacy 17.7 ml/min; Potassium 3.8 mmol/L (3.5-5.1)
[2025-03-18] MEDS: SODIUM CHLORIDE 0.9% 1,000 ML IV SCH (09:13)
--- NOTE | 2025-03-18 11:51 | Hospitalist Progress Note ---
Date of Service March 18, 2025 Assessment & Plan (1) Symptomatic anemia: Plan: Suspect multifactorial, iron deficiency, blood loss from BKA, chronic disease, chronic renal failure (2) S/P BKA (below knee amputation) unilateral: (3) Acute kidney injury superimposed on CKD: (4) HTN (hypertension): (5) Severe aortic stenosis: (6) Diabetes mellitus, type II: (7) Paroxysmal atrial fibrillation: (8) Hypomagnesemia: Plan Patient's hemoglobin has been remaining stable, continue to monitor Patient's renal dysfunction increasing, despite concern of possible volume overload he did respond well to diuresis, however creatinine increased. Suspect possibly now ATN due to his severe anemia prior to admission. Will start gentle IV hydration and continue to monitor renal function Case management continue to pursue placement options Continue to monitor glucose with insulin coverage Voicemail left for patient's , Farhana. Admission and Anticipated Discharge Date Admission Date: March 15, 2025 Subjective Patient more talkative and interactive this morning. Denies any pain. Reports he is eating well. Physical Exam Physical Exam: Constitutional: Alert, nontoxic HEENT: Mucous membranes moist. Lungs: Clear to auscultation, decreased, no wheezes rales or rhonchi CV: S1-S2, regular Abdomen: Soft, nontender, nondistended Extremities: No significant edema, status post BKA Neuro: No focal deficits, globally weak, hard of hearing Psych: Cooperative, normal mood Results & Data Results & Data Vital Signs (Past 12 Hours) Vital Signs Temp Pulse Resp BP Pulse Ox O2 Del Method 03/18/25 08:00 36.6 C 91 H 16 149/73 H 92 Room Air Diagnostic Findings Reviewed imaging, laboratory and diagnostic studies. Pertinent findings as below. 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
[2025-03-18] MEDS: CARBOHYDRATES FOR HYPOGLYCEMIA PO PRN (20:20)
[2025-03-19] MEDS: LANTUS PER UNIT CHARGE SC SCH (08:18)
[2025-03-19 11:57] LABS: Hematocrit (blood only) 24.3 % (42.0-52.0); Hemoglobin 7.8 g/dl (14.0-18.0); Mean Corpuscular Hemoglobin 28.1 pg (25.0-34.0); Mean Corpuscular Hgb Conc 32.1 g/dL (32.0-36.0); Mean Corpuscular Volume 87.4 fL (80.0-100.0); Mean Platelet Volume 9.1 fL (9.4-12.4); Platelet Count 378 K/uL (130-400); RDW Coefficient of Variation 15.2 % (11.5-14.5); RDW Standard Deviation 49.2 fL (36.4-46.3); Red Blood Count 2.78 M/uL (4.70-6.10); White Blood Count 8.87 K/ul (4.8-10.8)
[2025-03-19 12:18] LABS: Calcium 8.5 mg/dl (8.6-10.3); Creatinine Clr Calc Pharmacy 17.7 ml/min; Potassium 3.9 mmol/L (3.5-5.1)
--- NOTE | 2025-03-19 12:28 | Hospitalist Progress Note ---
Date of Service March 19, 2025 Assessment & Plan (1) Symptomatic anemia: Plan: Suspect multifactorial, iron deficiency, blood loss from BKA, chronic disease, chronic renal failure (2) S/P BKA (below knee amputation) unilateral: (3) Acute kidney injury superimposed on CKD: (4) HTN (hypertension): (5) Severe aortic stenosis: (6) Diabetes mellitus, type II: (7) Paroxysmal atrial fibrillation: (8) Hypomagnesemia: Plan Patient initially presented with acute anemia, multifactorial, is remained stable and hemoglobin is starting to improve after transfusion of 1 unit of PRBCs. Creatinine has stabilized with some gentle hydration, suspect component of ATN with due to his severe anemia. Will continue some IV fluids through today and recheck labs tomorrow Continue therapies Continue other medications Case management pursuing placement. Able to contact patient's and give her an update Admission and Anticipated Discharge Date Admission Date: March 15, 2025 Subjective Patient seen this morning, sitting up eating his breakfast. States he is feeling pretty good. No chest pain or shortness of breath. Physical Exam Physical Exam: Constitutional: Alert interactive, nontoxic HEENT: Mucous membranes moist. Lungs: Decreased breath sounds, few crackles at bases CV: S1-S2, regular Abdomen: Soft, nontender, nondistended Extremities: No significant edema, right BKA Neuro: No focal deficits, he is extremely hard of hearing, generally weak Psych: Cooperative, normal mood Results & Data Results & Data Vital Signs (Past 12 Hours) Vital Signs Temp Pulse Resp BP Pulse Ox O2 Del Method 03/19/25 07:52 36.4 C L 66 16 137/81 94 Room Air Diagnostic Findings Reviewed imaging, laboratory and diagnostic studies. Pertinent findings as below. 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
[2025-03-20 08:53] LABS: BUN Creatinine Ratio 14.6 (10-20); Calcium 8.5 mg/dl (8.6-10.3); Creatinine Clr Calc Pharmacy 17.2 ml/min
--- NOTE | 2025-03-20 11:30 | Discharge Summary ---
Discharge Summary Date of Service March 20, 2025 Principal Dx & Hospital Course #1 = Principal Diagnosis (1) Symptomatic anemia: Suspect multifactorial, iron deficiency, blood loss from BKA, chronic disease, chronic renal failure (2) Acute kidney injury (CESAR) with acute tubular necrosis (ATN): (3) S/P BKA (below knee amputation) unilateral: (4) Acute kidney injury superimposed on CKD: (5) HTN (hypertension): (6) Severe aortic stenosis: (7) Diabetes mellitus, type II: (8) Paroxysmal atrial fibrillation: (9) Hypomagnesemia: resolved Plan Patient is a 79-year-old gentleman who recently underwent BKA at [facility] and was at [facility] for ongoing rehabilitation. Presented to the emergency room at [facility] with outpatient labs that showed significant a nemia and generalized weakness. Patient also had evidence of acute on chronic renal failure. Patient was admitted to the hospital. His anticoagulation antiplatelets were held. He was transfused 1 unit of packed red blood cells. Additional blood testing revealed iron deficiency anemia. 6 suspected that his anemia was multifactorial due to some initial blood loss from his surgery, chronic renal failure, iron deficiency. He was given a dose of IV iron as well. His hemoglobin stabilized after transfusion and there was no evidence of blood loss. Patient's renal dysfunction continued to somewhat progress. This is most likely multifactorial ATN due to hypoperfusion from his anemia, recent surgery, and patient did have significant hypotension requiring pressors when he was at [facility]. Overall seems to have relatively stabilized. Anticipate his renal function will improve over the coming weeks. As far as his weakness he significantly improved after transfusion. Patient was evaluated by orthopedics while here there was no evidence of infection and his stump when he completed the course of his doxycycline while here in the hospital. On the day of discharge his vital signs are stable. His creatinine can be continued to be followed as an outpatient. He can resume his Eliquis, would continue to hold antiplatelet therapy at this time. His Protonix was increased to 2 times daily. He can continue his care and rehabilitation at [facility]. Notes For Next Care Provider Recommend checking H&H in approximately 7 to 10 days Recommend checking BMP in 7 to 10 days Continue therapies Medication Changes From Visit Aspirin on hold Can resume Eliquis Protonix twice daily Admission HPI Per Admitting Provider Mr. Sebastian is a 79 year old gentleman with past medical history remarkable for atrial fibrillation with RVR on eliquis, uncontrolled diabetes, prior T12/L1 compression fractures, ambulatory dysfunction, osteomyelitis s/p right BKA, severe hearing loss, chronic HFpEF, moderate to severe aortic stenosis, HTN, HLD, BPH presented to [facility] ED due to abnormal outpatient labs for acute anemia, as well as generalized weakness. Patient is a poor historian, mostly iso illness and severe hearing loss. He states that he feels weak and he doesn't remember any bleeding, but also states he "cant look at [his] leg" so he doesn't know if its been oozing alot He denies fevers, chills, diarrhea, abdominal pain or suprapubic pain. He states he just is tired and his back hurts as always. He does not report hematochezia, melena or other hematemesis. He does report feeling a bit nauseated, but denies vomiting. Patient recently [place] 03/02-03/09 [place] [facility] [place] underwent a right BKA for osteomyelitis iso nonhealing wound. Patient required pressor support post operatively 2/2 severe . Patient was resumed on his full dose eliquis on discharge 03/10. Patient with complicated postoperative course with post-op pain control requiring SURVEY STATISTICIAN, as well as post-op anemia requiring 1 UPRBC for a hgb drop from reportedly from 13 to 7.1 (baseline in record review is 9-11, however in 01/2025 noted to be 7s preoperatively). He also experienced an CESAR to 2.98. Patient was with MRSA infection and discharged on clindamycin q8 then transitioned to doxycycline on 03/13 to be continued until staple removal (anticipated 03/24) Patient has notable socioeconomic disparities, including homelessness as he lives in a van. [facility]. In the ED, vitals were notable for BP of 110-120s, HR of 60s, and O2 sat of low-mid 90s on room air . No imaging obtained ED interventions: 1 UPRBC Patient to be admitted to PCU for further evaluation and management of suspected acute blood loss anemia 2/2 post op Admission Exam Per Admitting Provider See H&P Discharge Exam Constitutional: Alert, nontoxic HEENT: Mucous membranes moist. Lungs: Decreased breath sounds CV: S1-S2, regular Abdomen: Soft, nontender, nondistended Extremities: No significant edema, right BKA stump no evidence of infection, no erythema, incision clean and dry Neuro: No focal deficits, significantly hard of hearing Psych: Cooperative, normal mood Updated Medication List Medication Instructions Recorded Confirmed Type apixaban 5 mg tablet (Eliquis) 5 mg PO BID #60 tabs 08/18/23 03/15/25 Rx insulin glargine 100 unit/mL (3 5 unit subcut HS 04/07/24 03/15/25 History mL) subcutaneous pen (Lantus Solostar U-100 Insulin) aspirin 81 mg tablet,delayed 81 mg PO QAM #30 tabs 04/22/24 03/15/25 Rx release polyethylene glycol 3350 17 gram 17 g PO DAILY PRN constipation #14 05/17/24 03/15/25 Rx oral powder packet (Miralax) ea furosemide 20 mg tablet 20 mg PO QAM 09/06/24 03/15/25 History Saccharomyces boulardii 250 mg 250 mg PO AMHS 03/15/25 03/15/25 History capsule (Florastor) acetaminophen 325 mg tablet 650 mg PO Q6H PRN Fever greater 03/15/25 03/15/25 History (Tylenol) than 100/Pain amitriptyline 10 mg tablet 30 mg PO HS 03/15/25 03/15/25 History atorvastatin 40 mg tablet 40 mg PO HS 03/15/25 03/15/25 History bisacodyl 10 mg rectal suppository [address] DAILY PRN Constipation 03/15/25 03/15/25 History (Dulcolax (bisacodyl)) docusate sodium 100 mg tablet 100 mg PO AMHS 03/15/25 03/15/25 History doxycycline monohydrate 100 mg 100 mg PO BID 03/15/25 03/15/25 History tablet finasteride 5 mg tablet 5 mg PO QAM 03/15/25 03/15/25 History glucagon 1 mg solution for 1 mg IM DIRECTED PRN 03/15/25 03/15/25 History injection (Glucagon Emergency Kit) Hypoglycemia insulin lispro 100 unit/mL 1 sliding scale dose subcut 03/15/25 03/15/25 History subcutaneous solution (Humalog USEASDIRECTD U-100 Insulin) insulin lispro 100 unit/mL 2 unit subcut TIDWMEAL 03/15/25 03/15/25 History subcutaneous solution (Humalog U-100 Insulin) magnesium hydroxide 400 mg/5 mL 2,400 mg PO DAILY PRN Constipation 03/15/25 03/15/25 History oral suspension (Milk of Magnesia) metoprolol tartrate 25 mg tablet 25 mg PO AMHS 03/15/25 03/15/25 History oxycodone 5 mg tablet 5 mg PO Q6H PRN Pain 03/15/25 03/15/25 History pregabalin 75 mg capsule 75 mg PO AMHS 03/15/25 03/15/25 History sennosides 8.6 mg-docusate sodium 1 tab PO AMHS constipation 03/15/25 03/15/25 History 50 mg tablet (Senokot-S) sodium phosphates 19 gram-[address] DAILY PRN Constipation 03/15/25 03/15/25 History gram/118 mL enema (Fleet Enema) tamsulosin 0.4 mg capsule 0.4 mg PO HS 03/15/25 03/15/25 History pantoprazole 40 mg tablet,delayed 40 mg PO BID #60 tabs 03/20/25 Rx release Hospital Stay Data Consultations 03/15/25 12:33 ED Decision to Admit Stat 03/15/25 15:06 Consult Orthopedic Surgery Routine Diagnostic Imagining Performed Reviewed imaging, laboratory and diagnostic studies. Pertinent findings as below. Hemoglobin 7.8 Electrolytes stable Creatinine 3.1 Pending Results Patient Have Any Pending Studies at Discharge: No Discharge Instructions Given to Patient (Per Discharging Provider) Continue with therapies Follow-up with your postoperative care as previously arranged Check BMP/renal function in 7 to 10 days Check hemoglobin in 7 to 10 days Total Time Total Time Spent Total Time Spent (In Minutes): 45
--- NOTE | 2025-03-20 11:32 | Hospitalist Progress Note ---
Date of Service March 20, 2025 Assessment & Plan (1) Symptomatic anemia: Plan: Suspect multifactorial, iron deficiency, blood loss from BKA, chronic disease, chronic renal failure (2) Acute kidney injury (CESAR) with acute tubular necrosis (ATN): (3) S/P BKA (below knee amputation) unilateral: (4) Acute kidney injury superimposed on CKD: (5) HTN (hypertension): (6) Severe aortic stenosis: (7) Diabetes mellitus, type II: (8) Paroxysmal atrial fibrillation: (9) Hypomagnesemia: Plan: resolved Plan Initial plan was for discharge today and monitoring of renal function and hemoglobin at [facility], unable to get transportation arranged today Plan for transportation tomorrow Restart Eliquis today Check renal function and hemoglobin again in a.m. Communication with orthopedic team, asking to evaluate if misa can be removed prior to going to [place] care tomorrow Continue to monitor glucose with insulin coverage Admission and Anticipated Discharge Date Admission Date: March 15, 2025 Subjective No acute issues overnight, patient states a little tired today but no pain. Ate a good breakfast. Physical Exam Physical Exam: Constitutional: Asleep, easily awakened HEENT: Mucous membranes moist. Lungs: Decreased breath sounds CV: S1-S2, regular, systolic murmur Abdomen: Soft, nontender, nondistended Extremities: No significant edema, BKA stump no significant edema or erythema, incision clean and dry Neuro: No focal deficits, hard of hearing Psych: Cooperative, normal mood Results & Data Results & Data Vital Signs (Past 12 Hours) Vital Signs Temp Pulse Resp BP Pulse Ox O2 Del Method O2 Flow Rate 03/20/25 07:55 36.3 C L 66 20 156/82 H 100 Nasal Cannula 2 Diagnostic Findings Creatinine 3.15 (7) Diabetes mellitus, type II Diabetes mellitus residential insulin use: with intermodal customer service use Diabetes mellitus complication status: with skin complications Diabetes mellitus complication detail: with foot ulcer Qualified Code(s): E11.621 - Type 2 diabetes mellitus with foot ulcer; L97.509 - Non-pressure chronic ulcer of other part of unspecified foot with unspecified severity; Z79.4 - jail (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
[2025-03-20 20:07] VITALS: RESP 16
[2025-03-20] MEDS: APIXABAN 5 MG TABLET PO SCH (20:08)
[2025-03-21 07:25] LABS: Hematocrit (blood only) 25.4 % (42.0-52.0); Hemoglobin 8.2 g/dl (14.0-18.0); Mean Corpuscular Hemoglobin 28.2 pg (25.0-34.0); Mean Corpuscular Hgb Conc 32.3 g/dL (32.0-36.0); Mean Corpuscular Volume 87.3 fL (80.0-100.0); Mean Platelet Volume 9.1 fL (9.4-12.4); Platelet Count 365 K/uL (130-400); RDW Standard Deviation 48.4 fL (36.4-46.3); Red Blood Count 2.91 M/uL (4.70-6.10); White Blood Count 9.04 K/ul (4.8-10.8)
[2025-03-21 07:50] LABS: BUN Creatinine Ratio 13.9 (10-20); Calcium 8.6 mg/dl (8.6-10.3); Creatinine Clr Calc Pharmacy 16.3 ml/min; Potassium 3.8 mmol/L (3.5-5.1)
[2025-03-21 07:53] VITALS: BP 160/73; PULSE 84; TEMP 98.1; O2SAT 93
--- NOTE | 2025-03-21 09:29 | Hospitalist Progress Note ---
Date of Service March 21, 2025 Assessment & Plan (1) Symptomatic anemia: Plan: Suspect multifactorial, iron deficiency, blood loss from BKA, chronic disease, chronic renal failure Denies any significant symptoms at rest Hemoglobin remains stable at 8.2 Will continue with the current medications (2) Acute kidney injury (CESAR) with acute tubular necrosis (ATN): Plan: Kidney function has remained stable with creatinine at 3.32 He was advised to drink more fluid (3) S/P BKA (below knee amputation) unilateral: Plan: Appreciate Ortho input and recommendation Misa will be removed as per Ortho recommendation (4) Acute kidney injury superimposed on CKD: (5) HTN (hypertension): (6) Severe aortic stenosis: Plan: Denies any cardiac symptoms (7) Diabetes mellitus, type II: (8) Paroxysmal atrial fibrillation: Plan: Rate is controlled and has been on Eliquis (9) Hypomagnesemia: Plan: Resolved Plan Note from the prior hospitalist: Initial plan was for discharge today and monitoring of renal function and hemoglobin at [facility], unable to get transportation arranged today Plan for transportation tomorrow Restart Eliquis today Check renal function and hemoglobin again in a.m. Communication with orthopedic team, asking to evaluate if misa can be removed prior to going [place] [facility] tomorrow Continue to monitor glucose with insulin coverage Admission and Anticipated Discharge Date Admission Date: March 15, 2025 Subjective 03/21/2025 The patient was seen and examined in medical floor He has been feeling much better denies any significant symptoms He will be going to [facility] this morning Review of Systems Review of Systems: All systems reviewed and are unremarkable except as noted below Physical Exam Physical Exam: Lying in bed without any acute distress Constitutional: well developed, well nourished and + ill appearing Eyes: PERRL, conjunctivae normal, anicteric sclerae ENMT: external ear and nose normal, oropharynx normal Neck: trachea midline, no thyromegaly Respiratory: no respiratory distress Auscultation: lungs clear to auscultation bilaterally Cardiovascular: Rate/Rhythm: regular rate and regular rhythm; not tachycardic Heart Sounds: normal S1, normal S2 and + murmur Extremities: no edema right BKA and the misa are in situ without any evidence of infection Gastrointestinal (Abdomen): Inspection/Auscultation: normal bowel sounds; abdomen not distended Percussion/Palpation: abdomen soft; abdomen nontender Musculoskeletal: Still complains of occasional phantom pain involving the amputated right big toe and right foot Neurologic: normal touch/pain/proprioception and moves all extremities Has right BKA Lymphatic: no cervical or axillary lymphadenopathy Results & Data Results & Data Vital Signs (Past 12 Hours) Vital Signs Temp Pulse Resp BP Pulse Ox O2 Del Method 03/21/25 08:19 Room Air 03/21/25 07:52 36.7 C 84 16 160/73 H 93 Room Air Laboratory Results Short CBC 03/21/25 Range/Units 07:00 WBC 9.04 (4.8-10.8) K/ul Hgb 8.2 L (14.0-18.0) g/dl Hct 25.4 L (42.0-52.0) % Plt Count 365 (130-400) K/uL BMP 03/21/25 07:00 Sodium 140 Potassium 3.8 Chloride 103 Carbon Dioxide 30 BUN 46 H Creatinine 3.32 H Glucose 118 H Calcium 8.6 Medications Administered Current Inpatient Medications Acetaminophen (Acetaminophen 325 Mg Tab) 650 mg PO Q6H PRN PRN Reason: Fever greater than 100/Pain Stop: 04/14/25 18:21 Amitriptyline HCl (Amitriptyline Hcl 10 Mg Tab) 30 mg PO HS DARIN Stop: 04/14/25 20:59 Last Admin: 03/20/25 20:08 Dose: 30 mg Apixaban (Apixaban 5 Mg Tablet) 5 mg PO BID DARIN Stop: 04/19/25 20:59 Last Admin: 03/21/25 07:53 Dose: 5 mg Aspirin (Aspirin 81 Mg Ectab) 81 mg PO QAM DARIN Stop: 04/15/25 08:59 Last Admin: 03/21/25 07:53 Dose: 81 mg Atorvastatin Calcium (Atorvastatin 40 Mg Tab) 40 mg PO HS DARIN Stop: 04/14/25 20:59 Last Admin: 03/20/25 20:08 Dose: 40 mg Bisacodyl (Bisacodyl 10 Mg Supp) 10 mg [place] DAILY PRN PRN Reason: Constipation Stop: 04/14/25 18:21 Dextrose (Dextrose 50% 50 Ml Syringe) 25 - 50 ml IV UD PRN; Protocol PRN Reason: Hypoglycemia Protocol Stop: 04/14/25 18:21 Docusate Sodium (Docusate Sodium 100 Mg Cap) 100 mg PO BID DARIN Stop: 04/14/25 20:59 Last Admin: 03/21/25 07:53 Dose: 100 mg Finasteride (Finasteride 5 Mg Tab) 5 mg PO QAM DARIN Stop: 04/15/25 08:59 Last Admin: 03/21/25 07:53 Dose: 5 mg Glucagon (Glucagon For Inj 1 Mg Vial) 1 mg SQ UD PRN; Protocol PRN Reason: Hypoglycemia Protocol Stop: 04/14/25 18:21 Glucose (Glucose 40% Gel 15 Gm Tube) 15 - 30 gm PO UD PRN; Protocol PRN Reason: Hypoglycemia Protocol Stop: 04/14/25 18:21 Glucose (Glucose 10 Tab/Tube) 4 - 8 tab PO UD PRN; Protocol PRN Reason: Hypoglycemia Protocol Stop: 04/14/25 18:21 Insulin Aspart (Insulin Aspart Per Unit Charge) 0 units SC ACHS DARIN Stop: 04/14/25 18:21 Last Admin: 03/21/25 08:32 Dose: 5 units Insulin Glargine (Lantus Per Unit Charge) 5 units SC DAILY DARIN Stop: 04/18/25 08:59 Last Admin: 03/21/25 08:32 Dose: 5 units Metoprolol Tartrate (Metoprolol Tartrate 25 Mg Tab) 25 mg PO BID DARIN Stop: 04/14/25 20:59 Last Admin: 03/21/25 07:52 Dose: 25 mg Miscellaneous (Carbohydrates For Hypoglycemia ) 15 - 30 gm PO UD PRN PRN Reason: Hypoglycemia Protocol Stop: 04/14/25 18:21 Last Admin: 03/18/25 20:45 Dose: 15 gm Oxycodone HCl (Oxycodone Hcl Ir 5 Mg Tab (Immediate Release)) 5 mg PO Q6H PRN PRN Reason: Pain Stop: 03/29/25 18:21 Last Admin: 03/16/25 00:33 Dose: 5 mg Pantoprazole Sodium (Pantoprazole 40 Mg Tab) 40 mg PO BID DARIN Stop: 04/15/25 20:59 Last Admin: 03/21/25 07:52 Dose: 40 mg Polyethylene Glycol (Polyethylene (Miralax) 17 Gm Pack) 17 gm PO DAILY PRN PRN Reason: constipation Stop: 04/14/25 18:21 Last Admin: 03/17/25 08:43 Dose: 17 gm Pregabalin (Pregabalin 75 Mg Cap) 75 mg PO BID [facility] Stop: 04/14/25 20:59 Last Admin: 03/21/25 07:52 Dose: 75 mg Saccharomyces Boulardii (Saccharomyces Boulardii 250 Mg Cap) 250 mg PO AMHS DARIN Stop: 04/14/25 20:59 Last Admin: 03/21/25 07:53 Dose: 250 mg Senna/Docusate Sodium (Docusate Sodium/Senna 50/8.6mg Tab) 1 tab PO BID DARIN Stop: 04/14/25 20:59 Last Admin: 03/21/25 07:29 Dose: Not Given Tamsulosin HCl (Tamsulosin Hcl 0.4 Mg Cap) 0.4 mg PO HS [facility] Stop: 04/14/25 20:59 Last Admin: 03/20/25 20:07 Dose: 0.4 mg (7) Diabetes mellitus, type II Diabetes mellitus retirement insulin use: with retirement use Diabetes mellitus complication status: with skin complications Diabetes mellitus complication detail: with foot ulcer Qualified Code(s): E11.621 - Type 2 diabetes mellitus with foot ulcer; L97.509 - Non-pressure chronic ulcer of other part of unspecified foot with unspecified severity; Z79.4 - snf (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
--- NOTE | 2025-03-22 07:16 | Discharge Summary ---
Date of Service March 22, 2025 Admission HPI Per Admitting Provider Mr. Sebastian is a 79 year old gentleman with past medical history remarkable for atrial fibrillation with RVR on eliquis, uncontrolled diabetes, prior T12/L1 compression fractures, ambulatory dysfunction, osteomyelitis s/p right BKA, severe hearing loss, chronic HFpEF, moderate to severe aortic stenosis, HTN, HLD, BPH presented to [facility] ED due to abnormal outpatient labs for acute anemia, as well as generalized weakness. Patient is a poor historian, mostly iso illness and severe hearing loss. He states that he feels weak and he doesn't remember any bleeding, but also states he "cant look at [his] leg" so he doesn't know if its been oozing alot He denies fevers, chills, diarrhea, abdominal pain or suprapubic pain. He states he just is tired and his back hurts as always. He does not report hematochezia, melena or other hematemesis. He does report feeling a bit nauseated, but denies vomiting. Patient recently admitted on 03/02-03/09 to [facility] and underwent a right BKA for osteomyelitis iso nonhealing wound. Patient required pressor support post operatively 2/2 severe . Patient was resumed on his full dose eliquis on discharge 03/10. Patient with complicated postoperative course with post-op pain control requiring CREDIT OFFICE MANAGER, as well as post-op anemia requiring 1 UPRBC for a hgb drop from reportedly from 13 to 7.1 (baseline in record review is 9-11, however in 01/2025 noted to be 7s preoperatively). He also experienced an CESAR to 2.98. Patient was with MRSA infection and discharged on clindamycin q8 then transitioned to doxycycline on 03/13 to be continued until staple removal (anticipated 03/24) Patient has notable socioeconomic disparities, including homelessness as he lives in a van. Previously was discharged to [facility] in 2023 during last confinement. In the ED, vitals were notable for BP of 110-120s, HR of 60s, and O2 sat of low-mid 90s on room air . No imaging obtained ED interventions: 1 UPRBC Patient to be admitted to PCU for further evaluation and management of suspected acute blood loss anemia 2/2 post op Admission Exam Per Admitting Provider Physical Exam: GENERAL APPEARANCE: AxOx2-3, chronically ill, no acute distress. HEENT: NC, AT. MMM. EOMI, clear conjunctiva, oropharynx clear. NECK: Supple without lymphadenopathy. No stiffness or restricted ROM. HEART: RRR, JESSICA+ LUNGS: CTAB, moving air well. No crackles or wheezes are heard. ABDOMEN: Soft, nontender, nondistended with good bowel sounds heard. BACK: No CVAT, no obvious deformity. EXTREMITIES: non-pitting edema LLE, R stump with misa and ecchymosis around incision sites NEUROLOGICAL: Grossly nonfocal. Alert and oriented, moving all 4 extremities. CN not formally tested but appear grossly intact. Observed to ambulate with normal gait. Skin: Warm and dry without any rash. Principal Diagnosis 1) Symptomatic anemia: Plan: Suspect multifactorial, iron deficiency, blood loss from BKA, chronic disease, chronic renal failure (2) S/P BKA (below knee amputation) unilateral: (3) Acute kidney injury superimposed on CKD: (4) HTN (hypertension): (5) Severe aortic stenosis: (6) Diabetes mellitus, type II: (7) Paroxysmal atrial fibrillation: (8) Hypomagnesemia: Discharge Exam Lying in bed without any acute distress Constitutional well developed, well nourished and + ill appearing Eyes PERRL, conjunctivae normal, anicteric sclerae ENMT external ear and nose normal, oropharynx normal Neck trachea midline, no thyromegaly Respiratory no respiratory distress Auscultation: lungs clear to auscultation bilaterally Cardiovascular Rate/Rhythm: regular rate and regular rhythm; not tachycardic Heart Sounds: normal S1, normal S2 and + murmur Extremities: no edema Gastrointestinal (Abdomen) Inspection/Auscultation: normal bowel sounds; abdomen not distended Percussion/Palpation: abdomen soft; abdomen nontender Neurologic normal touch/pain/proprioception and moves all extremities Lymphatic no cervical or axillary lymphadenopathy Discharge Data Allergies Allergy/AdvReac Type Severity Reaction Status Date / Time lisinopril Allergy Severe Swelling Verified 03/15/25 12:33 of Face/Lips/Tongue hydrochlorothiazide Allergy Unknown Unknown - Unverified 03/15/25 12:33 On file w/ [facility] Consultations 03/15/25 12:33 ED Decision to Admit Stat 03/15/25 15:06 Consult Orthopedic Surgery Routine Hospital Course (1) Symptomatic anemia: Suspect multifactorial, iron deficiency, blood loss from BKA, chronic disease, chronic renal failure Denies any significant symptoms at rest Hemoglobin remains stable at 8.2 Will continue with the current medications (2) Acute kidney injury (CESAR) with acute tubular necrosis (ATN): Kidney function has remained stable with creatinine at 3.32 He was advised to drink more fluid (3) S/P BKA (below knee amputation) unilateral: Appreciate Ortho input and recommendation Skytop will be removed as per Ortho recommendation (4) Acute kidney injury superimposed on CKD: (5) HTN (hypertension): (6) Severe aortic stenosis: Denies any cardiac symptoms (7) Diabetes mellitus, type II: (8) Paroxysmal atrial fibrillation: Rate is controlled and has been on Eliquis (9) Hypomagnesemia: Resolved Plan Note from the prior hospitalist: Initial plan was for discharge today and monitoring of renal function and hemoglobin at [facility], unable to get transportation arranged today Plan for transportation tomorrow Restart Eliquis today Check renal function and hemoglobin again in a.m. Communication with orthopedic team, asking to evaluate if misa can be removed prior to going to [place] care tomorrow Continue to monitor glucose with insulin coverage Total Time Total Time Spent Total Time Spent (In Minutes): 35 minutes Discharge Plan Discharge Items Patient Disposition: Transfer Assisted Fac Reason For Visit: BLOOD LOSS ANEMIA Discharge Diagnosis: 1) Symptomatic anemia: Plan: Suspect multifactorial, iron deficiency, blood loss from BKA, chronic disease, chronic renal failure (2) S/P BKA (below knee amputation) unilateral: (3) Acute kidney injury superimposed on CKD: (4) HTN (hypertension): (5) Severe aortic stenosis: (6) Diabetes mellitus, type II: (7) Paroxysmal atrial fibrillation: (8) Hypomagnesemia: Condition on Discharge: Fair Activity: As commented below Activity Comment: Activity as tolerated Non-emergency contact: Primary Care Provider Call non-emergency contact if: your symptoms worsen Follow-up/Referrals: [facility] [Primary Care Provider] - Diet: Carb Consistent or DM2 Addtl Attending Provider Instructions: Continue with therapies Follow-up with your postoperative care as previously arranged Check BMP/renal function in 7 to 10 days Check hemoglobin in 7 to 10 days Pending Studies at Discharge: No Stand-Alone Forms: My [facility] Skilled Items Patient informed of condition?: Yes DNR: Yes Discharge Level of Care: Skilled Communicable Disease: No Discharge Prognosis: Stable Lines: None Urinary Catheter: No Medications and DC Order Prescriptions: Continued Eliquis 5 mg tablet 5 mg PO BID Qty: 60 0RF insulin glargine [Lantus Solostar U-100 Insulin] 100 unit/mL (3 mL) insulin pen 5 unit SUBCUT HS polyethylene glycol 3350 [Miralax] 17 gram Powder In Packet 17 g PO DAILY PRN (Reason: constipation) Qty: 14 0RF acetaminophen [Tylenol] 325 mg Tablet 650 mg PO Q6H MDD 3g/24hrs PRN (Reason: Fever greater than 100/Pain) magnesium hydroxide [Milk of Magnesia] 400 mg/5 mL Suspension 2,400 mg PO DAILY PRN (Reason: Constipation) Rx Instructions: Give 30ml by mouth as needed for constipation after no BM for three days, administer MPM on 7-3 shift amitriptyline 10 mg Tablet 30 mg PO HS bisacodyl [Dulcolax (bisacodyl)] 10 mg Suppository 10 mg OH DAILY PRN (Reason: Constipation) Rx Instructions: Insert 1 unit rectally as needed for constipation, give suppository on day 3; 3-11 shift if no BM after MOM Fleet Enema 19-7 gram/118 mL Enema 118 ml OH DAILY PRN (Reason: Constipation) Rx Instructions: Insert 1 unit rectally as needed for constipation if no BM after dulcolax administer fleets on 7-3 shift; day 4 insulin lispro [Humalog U-100 Insulin] 100 unit/mL Solution 2 unit subcut TIDWMEAL insulin lispro [Humalog U-100 Insulin] 100 unit/mL Solution 1 sliding scale dose SUBCUT USEASDIRECTD Rx Instructions: Subcutaneously before meals and at bedtime for DM. 350-400 = 8units; 401-450 = 12units; 451-500 = 16units; 501-550 = 18units. Recheck in 1 hour, report result to MD/CONSUMER AFFAIRS DIRECTOR. BSG<90, BSG>551 Glucagon Emergency Kit (human) 1 mg Recon Soln 1 mg IM DIRECTED PRN (Reason: Hypoglycemia) docusate sodium 100 mg Tablet 100 mg PO AMHS Saccharomyces boulardii [Florastor] 250 mg Capsule 250 mg PO AMHS Rx Instructions: Start Date 03/10/25 x5 weeks pregabalin 75 mg Capsule 75 mg PO AMHS atorvastatin 40 mg tablet 40 mg PO HS sennosides-docusate sodium [Senokot-S] 8.6-50 mg tablet 1 tab PO AMHS finasteride 5 mg tablet 5 mg PO QAM oxycodone 5 mg tablet 5 mg PO Q6H PRN (Reason: Pain) metoprolol tartrate 25 mg tablet 25 mg PO AMHS tamsulosin 0.4 mg capsule 0.4 mg PO HS Changed pantoprazole 40 mg tablet,delayed release (DR/EC) 40 mg PO BID Qty: 60 0RF Discontinued aspirin 81 mg Tablet,Delayed Release (Dr/Ec) 81 mg PO QAM Qty: 30 0RF furosemide 20 mg tablet 20 mg PO QAM doxycycline monohydrate 100 mg Tablet 100 mg PO BID Rx Instructions: Start Date 03/13/25 Discharge Orders: Discharge Order (Routine); Ordered 03/21/25 Ordered By: Aftab Mackay Admission Data Admit Date/Time: 03/15/25 14:16 Attending Provider: Aftab Mackay Admit Provider: Nelli Sanches Primary Care Provider: Jesus Bustamante Other Providers: Jesus Bustamante; Nelli Sanches; Jeremiah Kumar; Carlos Bains Other Interventions: Discharge Summary Assessment (RN) Last Done: 03/21/25 09:41
== END 2025-03-21 11:41 | DRG 811 ==
LOC: ED 10:42 → SUATTDRO 14:16 → 2S 14:16 → 3W 03-16 14:39

== ENCOUNTER 2025-04-21 11:29 | Inpatient (IN) ==
--- NOTE | 2025-04-21 11:48 | Emergency Department Note ---
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 where he resides. Patient evidently was noted this morning to be hypoxic at around 80% on room air and had a congestion and audible crackles. Received a DuoNeb nebulizer there and sent here for further evaluation given lack of improvement. Patient states he feels a little short of breath and weak but denies chest pain head pain or abdominal pain to me. No syncope or falls reported. Patient has been on a prednisone taper by report. EMS noted to the patient to be tachycardic but had difficulty getting IV access around. Placed on nonrebreather satting around 100% upon arrival. PAST MEDICAL HISTORY: As noted above MEDICATIONS: Reviewed medication list from facility SOCIAL HISTORY: Resides at [facility], denies currently smoking PHYSICAL EXAM: GENERAL: alert and oriented on stretcher nonrebreather in place as well as headphone hearing assist device Head: normocephalic and atraumatic EYES: No injection, discharge or icterus. EOMI. NECK: Trachea midline. ENT: Mucous membranes pink and moist. LUNGS: Airway patent. No retractions. Breath sounds diffuse crackles in the lower lung wilson slight wheeze HEART: Tachycardic irregular irregular rate and rhythm. No chest wall tenderness ABDOMEN: Soft and non-tender, without guarding or rebound. SKIN: Acyanotic, warm, dry, without rashes EXTREMITIES: Without swelling, tenderness or deformity of the left lower leg in the right lower leg with healed BKA on the right NEUROLOGICAL: No focal deficits. No aphasia. No facial droop or slurred speech. EK bpm atrial fibrillation rapid ventricular sponsor right bundle branch block left intrafascicular block. Some anterior T wave versions without clear acute ST segment elevation and a QTc of 523. CONTINUOUS CARDIAC MONITORING: was ordered and showed a heart rate of 110s-150s bpm in atrial fibrillation Patient's laboratory studies and imaging reviewed. Differential includes Reactive airway disease, pneumonia, pneumothorax, COPD, CHF, infections, cardiac ischemia, pulmonary embolism, musculoskeletal, gastrointestinal, as well as other pathologies. IMPRESSION/MEDICAL DECISION MAKING: Patient with no significant hypoxia. Afebrile here but tachypneic. Rapid A- fib. Given small additional DuoNeb and will place on BiPAP for respiratory effort. Do question if there is some component of fluid overload with this as well. Given IV metoprolol. Cultures lactate were ordered as well as respiratory viral panel and basic labs. VBG sent. Does not seem significantly altered hard of hearing but able to understand using his amplified hearing device. Records from facility indicate the patient has history of COPD as well and has been on a prednisone taper received 20 mg this morning orally. Is on Eliquis & lower suspicion for PE. Blood work here with leukocytosis of 19 with a stable to slightly improved hemoglobin at 9.5. Lactate elevated 1.6. Given concern for infection Hanna will be changed for sample but empirically given Zosyn and vancomycin given recent hospitalization and history of MRSA/Pseudomonas/Serratia in the past. X- ray with findings concerning for CHF but given what appears to be UTI covered with antibiotics in any event in case there is an occult pneumonia. Given some IV Lasix here. Mild acidosis 7.25 and a CO2 of 64 and has been started on BiPAP. Chronic CKD noted. Mild hypokalemia and hypocalcemia. Troponin elevated 192 but no reported chest pain. Likely demand in the setting of a low BNP and heart failure. Procalcitonin 0.22. Hospitalist contacted for third admission here. Heart rate is gradually improving after dose of metoprolol. Florid UTI on UA and cover with antibiotics broadly. Likely more CHF driving think a negative respiratory viral panel. May have some component of sepsis but appears fluid overloaded on the x-ray and will not provide additional fluids given his use of BiPAP currently to help with his fluid overload respiratory striction. DIAGNOSIS: Acute hypoxic respiratory failure, acute CHF/pulmonary edema, acute UTI, sepsis, rapid A-fib DISPOSITION: Hospitalist will evaluate Patient was agreeable with this plan. Critical Care I have personally spent 42 minutes of critical care time in the direct management of this patient. This includes bedside care, interpretation of diagnostic studies, and testing, discussion with consultants, patient, and other required patient management activities. These 42 minutes is in excess of all separately billable procedures. Past Med/Surg History Problem List (Updated 04/21/25 @ 16:01 by BARTOLO Rizvi) Aortic stenosis Atrial fibrillation with rapid ventricular response (Acute) Acute CHF (Acute) Acute UTI (Acute) Acute respiratory failure with hypoxia (Acute) Acute kidney injury (CESAR) with acute tubular necrosis (ATN) Acute kidney injury superimposed on CKD S/P BKA (below knee amputation) unilateral Weakness (Acute) Symptomatic anemia (Acute) Catheter-associated urinary tract infection Diabetic foot ulcers Closed compression fracture of thoracic vertebra (Acute) Lymphedema (Chronic) Fall (Acute) Open wound of finger (Acute) Diabetic peripheral neuropathy associated with type 2 diabetes mellitus HTN (hypertension) Diabetic ulcer of right foot (Acute) Charcot foot due to diabetes mellitus Closed T12 fracture (Acute) Diabetic ulcer of left heel (Acute) Hyponatremia (Acute) Otitis externa of left ear Chronic indwelling Hanna catheter Otitis externa Ambulatory dysfunction Severe aortic stenosis Chronic heart failure with preserved ejection fraction (HFpEF) Ear drum perforation Hydronephrosis, bilateral Severe hearing loss Open wound of abdomen (Acute) Homeless (Acute) BPH (benign prostatic hyperplasia) Edema of both legs Hypertension Paroxysmal atrial fibrillation Diabetes mellitus, type II (Chronic) Dyslipidemia Medical History Asymptomatic hypertensive urgency Bilateral lower leg cellulitis Blister of finger Maggot infestation CESAR (acute kidney injury) Surgical History History of ear surgery age 19, mastoid H/O shoulder surgery S/P foot surgery, left Family History Brother Diabetes Social History Smoking Status: Never smoker Tobacco Type: Cigarettes Second Hand Exposure: No; Do You Dip or Chew Tobacco: No; Hx Alcohol Use: Yes Alcohol type: beer Alcohol Intake Frequency: 2-3 x/Week Hx Substance Use: No Preferred Language: Setswana Communication Ability: Effective Communication Ability Comment: Hearing Loss. Visual Impairment: Limited Hearing Ability: Use of Hearing Aid Road [employer] Required: No Beliefs That Will Affect Care: None marital status: Current Living Situation: [facility] Current Living Situation Comment: c care current occupational status: retired How many Children do You have: 3 Feels Safe at Home: Yes during the past year weight has: remained stable Dental Care, Regularly: No Physical Activity Frequency: Does not Exercise Assistive Devices: Denture - Upper, Denture - Lower, Glasses and Other Allergies Allergies Allergy/AdvReac Type Severity Reaction Status Date / Time lisinopril Allergy Severe Swelling Verified 03/15/25 12:33 of Face/Lips/Tongue hydrochlorothiazide Allergy Unknown Unknown - Unverified 03/15/25 12:33 On file w/ [facility] Home Meds Home Medications Medication Instructions Recorded Confirmed insulin glargine 100 unit/mL (3 5 unit subcut HS 04/07/24 03/15/25 mL) subcutaneous pen (Lantus Solostar U-100 Insulin) Saccharomyces boulardii 250 mg 250 mg PO AMHS 03/15/25 03/15/25 capsule (Florastor) acetaminophen 325 mg tablet 650 mg PO Q6H PRN Fever greater 03/15/25 03/15/25 (Tylenol) than 100/Pain amitriptyline 10 mg tablet 30 mg PO HS 03/15/25 03/15/25 atorvastatin 40 mg tablet 40 mg PO HS 03/15/25 03/15/25 bisacodyl 10 mg rectal suppository 10 mg ID DAILY PRN Constipation 03/15/25 03/15/25 (Dulcolax (bisacodyl)) docusate sodium 100 mg tablet 100 mg PO AMHS 03/15/25 03/15/25 finasteride 5 mg tablet 5 mg PO QAM 03/15/25 03/15/25 glucagon 1 mg solution for 1 mg IM DIRECTED PRN 03/15/25 03/15/25 injection (Glucagon Emergency Kit) Hypoglycemia insulin lispro 100 unit/mL 1 sliding scale dose subcut 03/15/25 03/15/25 subcutaneous solution (Humalog USEASDIRECTD U-100 Insulin) insulin lispro 100 unit/mL 2 unit subcut TIDWMEAL 03/15/25 03/15/25 subcutaneous solution (Humalog U-100 Insulin) magnesium hydroxide 400 mg/5 mL 2,400 mg PO DAILY PRN Constipation 03/15/25 03/15/25 oral suspension (Milk of Magnesia) metoprolol tartrate 25 mg tablet 25 mg PO AMHS 03/15/25 03/15/25 oxycodone 5 mg tablet 5 mg PO Q6H PRN Pain 03/15/25 03/15/25 pregabalin 75 mg capsule 75 mg PO AMHS 03/15/25 03/15/25 sennosides 8.6 mg-docusate sodium 1 tab PO AMHS constipation 03/15/25 03/15/25 50 mg tablet (Senokot-S) sodium phosphates 19 gram-7 118 ml ID DAILY PRN Constipation 03/15/25 03/15/25 gram/118 mL enema (Fleet Enema) tamsulosin 0.4 mg capsule 0.4 mg PO HS 03/15/25 03/15/25 Previous Rx's Medication Instructions Recorded apixaban 5 mg tablet (Eliquis) 5 mg PO BID #60 tabs 08/18/23 polyethylene glycol 3350 17 gram 17 g PO DAILY PRN constipation #14 05/17/24 oral powder packet (Miralax) ea pantoprazole 40 mg tablet,delayed 40 mg PO BID #60 tabs 03/20/25 release Results & Data (ED) Vital Signs Vital Signs - 24 hr 04/21/25 11:30 04/21/25 11:30 04/21/25 11:30 Temperature 36.9 C Temperature Source Oral Pulse Rate 153 H Pulse Rate [Apical] Pulse Rate from SpO2 Sensor Respiratory Rate 28 H Respiratory Effort / Characteristics Labored Grunting Labored Respiratory Depth Respiratory Pattern Regular Blood Pressure 120/60 Blood Pressure Mean 80 Blood Pressure Position Lying Pulse Oximetry 85 L 95 Oxygen Delivery Method Room Air Non-rebreather Oxygen Flow Rate 15 Fraction of Inspired Oxygen Sepsis Recent Fever Within 48 Hours No Sepsis New/Unexplained Change in Mental Status N/A Sepsis Action Taken by Nursing No Action Required 04/21/25 11:42 04/21/25 11:54 04/21/25 11:57 Temperature Temperature Source Pulse Rate 138 H 128 H Pulse Rate [Apical] Pulse Rate from SpO2 Sensor 137 H 108 H Respiratory Rate 20 19 Respiratory Effort / Characteristics Respiratory Depth Respiratory Pattern Blood Pressure Blood Pressure Mean Blood Pressure Position Pulse Oximetry 100 97 Oxygen Delivery Method BiPAP BiPAP Oxygen Flow Rate Fraction of Inspired Oxygen Sepsis Recent Fever Within 48 Hours Sepsis New/Unexplained Change in Mental Status Sepsis Action Taken by Nursing 04/21/25 11:59 04/21/25 12:00 04/21/25 12:01 Temperature Temperature Source Pulse Rate 120 H 146 H Pulse Rate [Apical] 120 H Pulse Rate from SpO2 Sensor 113 H Respiratory Rate 18 19 18 Respiratory Effort / Characteristics Non-Labored Spontaneous Non-Labored Spontaneous Respiratory Depth Normal Respiratory Pattern Regular Blood Pressure Blood Pressure Mean Blood Pressure Position Pulse Oximetry 99 99 99 Oxygen Delivery Method BiPAP BiPAP Oxygen Flow Rate Fraction of Inspired Oxygen 35 35 Sepsis Recent Fever Within 48 Hours Sepsis New/Unexplained Change in Mental Status Sepsis Action Taken by Nursing 04/21/25 12:01 04/21/25 12:02 04/21/25 12:05 Temperature Temperature Source Pulse Rate 140 H Pulse Rate [Apical] Pulse Rate from SpO2 Sensor Respiratory Rate Respiratory Effort / Characteristics Respiratory Depth Respiratory Pattern Blood Pressure 84/62 L 101/78 101/78 Blood Pressure Mean 68 92 Blood Pressure Position Pulse Oximetry Oxygen Delivery Method Oxygen Flow Rate Fraction of Inspired Oxygen Sepsis Recent Fever Within 48 Hours Sepsis New/Unexplained Change in Mental Status Sepsis Action Taken by Nursing 04/21/25 12:06 04/21/25 12:06 04/21/25 12:06 Temperature Temperature Source Pulse Rate 132 H Pulse Rate [Apical] Pulse Rate from SpO2 Sensor Respiratory Rate Respiratory Effort / Characteristics Respiratory Depth Respiratory Pattern Blood Pressure 100/66 100/66 Blood Pressure Mean 85 85 Blood Pressure Position Pulse Oximetry Oxygen Delivery Method Oxygen Flow Rate Fraction of Inspired Oxygen Sepsis Recent Fever Within 48 Hours Sepsis New/Unexplained Change in Mental Status Sepsis Action Taken by Nursing 04/21/25 12:06 04/21/25 12:09 04/21/25 12:10 Temperature Temperature Source Pulse Rate 134 H 144 H Pulse Rate [Apical] Pulse Rate from SpO2 Sensor 93 H 121 H Respiratory Rate 18 20 Respiratory Effort / Characteristics Respiratory Depth Respiratory Pattern Blood Pressure 107/75 Blood Pressure Mean 81 Blood Pressure Position Pulse Oximetry 97 96 Oxygen Delivery Method BiPAP BiPAP Oxygen Flow Rate Fraction of Inspired Oxygen Sepsis Recent Fever Within 48 Hours Sepsis New/Unexplained Change in Mental Status Sepsis Action Taken by Nursing 04/21/25 12:15 04/21/25 12:20 04/21/25 12:24 Temperature Temperature Source Pulse Rate 131 H Pulse Rate [Apical] Pulse Rate from SpO2 Sensor 88 Respiratory Rate 22 Respiratory Effort / Characteristics Respiratory Depth Respiratory Pattern Blood Pressure 111/79 99/73 L Blood Pressure Mean 87 88 Blood Pressure Position Pulse Oximetry 96 Oxygen Delivery Method BiPAP Oxygen Flow Rate Fraction of Inspired Oxygen Sepsis Recent Fever Within 48 Hours Sepsis New/Unexplained Change in Mental Status Sepsis Action Taken by Nursing 04/21/25 12:27 04/21/25 12:39 04/21/25 12:40 Temperature Temperature Source Pulse Rate 125 H 133 H Pulse Rate [Apical] Pulse Rate from SpO2 Sensor Respiratory Rate Respiratory Effort / Characteristics Respiratory Depth Respiratory Pattern Blood Pressure 111/69 111/69 Blood Pressure Mean 81 Blood Pressure Position Pulse Oximetry 97 Oxygen Delivery Method BiPAP Oxygen Flow Rate Fraction of Inspired Oxygen Sepsis Recent Fever Within 48 Hours Sepsis New/Unexplained Change in Mental Status Sepsis Action Taken by Nursing 04/21/25 12:45 04/21/25 12:45 04/21/25 12:50 Temperature Temperature Source Pulse Rate 127 H Pulse Rate [Apical] Pulse Rate from SpO2 Sensor 95 H Respiratory Rate 18 Respiratory Effort / Characteristics Respiratory Depth Respiratory Pattern Blood Pressure 102/68 110/69 Blood Pressure Mean 94 91 Blood Pressure Position Pulse Oximetry 98 Oxygen Delivery Method BiPAP Oxygen Flow Rate Fraction of Inspired Oxygen Sepsis Recent Fever Within 48 Hours Sepsis New/Unexplained Change in Mental Status Sepsis Action Taken by Nursing 04/21/25 12:51 04/21/25 13:00 04/21/25 13:11 Temperature Temperature Source Pulse Rate 144 H 116 H Pulse Rate [Apical] Pulse Rate from SpO2 Sensor 117 H Respiratory Rate 23 Respiratory Effort / Characteristics Respiratory Depth Respiratory Pattern Blood Pressure 110/69 110/69 Blood Pressure Mean 83 Blood Pressure Position Pulse Oximetry 97 Oxygen Delivery Method Oxygen Flow Rate Fraction of Inspired Oxygen Sepsis Recent Fever Within 48 Hours Sepsis New/Unexplained Change in Mental Status Sepsis Action Taken by Nursing 04/21/25 13:15 04/21/25 13:26 04/21/25 13:45 Temperature Temperature Source Pulse Rate 126 H 106 H Pulse Rate [Apical] Pulse Rate from SpO2 Sensor 106 H Respiratory Rate 22 Respiratory Effort / Characteristics Respiratory Depth Respiratory Pattern Blood Pressure 120/85 120/85 Blood Pressure Mean 92 Blood Pressure Position Pulse Oximetry 90 Oxygen Delivery Method Oxygen Flow Rate Fraction of Inspired Oxygen Sepsis Recent Fever Within 48 Hours Sepsis New/Unexplained Change in Mental Status Sepsis Action Taken by Nursing 04/21/25 13:48 04/21/25 14:00 04/21/25 14:00 Temperature Temperature Source Pulse Rate 115 H 114 H Pulse Rate [Apical] Pulse Rate from SpO2 Sensor 124 H Respiratory Rate 24 21 Respiratory Effort / Characteristics Respiratory Depth Respiratory Pattern Blood Pressure 129/90 Blood Pressure Mean 94 Blood Pressure Position Pulse Oximetry 96 Oxygen Delivery Method Oxygen Flow Rate Fraction of Inspired Oxygen Sepsis Recent Fever Within 48 Hours Sepsis New/Unexplained Change in Mental Status Sepsis Action Taken by Nursing 04/21/25 14:09 04/21/25 14:15 04/21/25 14:42 Temperature Temperature Source Pulse Rate 132 H 130 H Pulse Rate [Apical] Pulse Rate from SpO2 Sensor Respiratory Rate 21 23 Respiratory Effort / Characteristics Respiratory Depth Respiratory Pattern Blood Pressure 99/64 L Blood Pressure Mean 92 Blood Pressure Position Pulse Oximetry Oxygen Delivery Method Oxygen Flow Rate Fraction of Inspired Oxygen Sepsis Recent Fever Within 48 Hours Sepsis New/Unexplained Change in Mental Status Sepsis Action Taken by Nursing 04/21/25 14:45 Temperature Temperature Source Pulse Rate Pulse Rate [Apical] Pulse Rate from SpO2 Sensor Respiratory Rate Respiratory Effort / Characteristics Respiratory Depth Respiratory Pattern Blood Pressure 114/89 Blood Pressure Mean 94 Blood Pressure Position Pulse Oximetry Oxygen Delivery Method Oxygen Flow Rate Fraction of Inspired Oxygen Sepsis Recent Fever Within 48 Hours Sepsis New/Unexplained Change in Mental Status Sepsis Action Taken by Nursing Laboratory Data 04/21/25 11:43 04/21/25 11:43 Lab Results 04/21/25 04/21/25 04/21/25 Range/Units 11:43 12:07 13:38 WBC 19.00 H (4.8-10.8) K/ul RBC 3.31 L (4.70-6.10) M/uL Hgb 9.5 L (14.0-18.0) g/dl Hct 29.9 L (42.0-52.0) % MCV 90.3 (80.0-100.0) fL MCH 28.7 (25.0-34.0) pg MCHC 31.8 L (32.0-36.0) g/dL RDW Std Deviation 52.4 H (36.4-46.3) fL RDW Coeff of Scott 15.8 H (11.5-14.5) % Plt Count 283 (130-400) K/uL MPV 10.7 (9.4-12.4) fL Immature Gran % (Auto) 0.6 % Neut % (Auto) 82.1 % Lymph % (Auto) 11.1 % [place] % (Auto) 4.9 % Eos % (Auto) 1.2 % Baso % (Auto) 0.1 % Neut # (Auto) 15.61 H (1.40-6.50) K/uL Lymph # (Auto) 2.10 (1.20-3.40) K/uL [place] # (Auto) 0.93 H (0.11-0.59) K/uL Eos # (Auto) 0.23 (0.00-0.50) K/uL Baso # (Auto) 0.02 (0.00-0.20) K/uL Immature Gran # (Auto) 0.11 (0.01-0.20) K/uL PT 11.4 (9.0-12.0) Seconds INR 1.1 (0.9-1.1) APTT 25 (21-31) Seconds PTT Ratio 0.9 VBG pH 7.25 L (7.36-7.41) VBG pCO2 64 H (38-50) mmHg VBG pO2 31 mmHg VBG HCO3 28 mmol/L VBG O2 Saturation < 60.0 % VBG Base Excess -0.6 mEq/L Sodium 142 (136-145) mmol/L Potassium 3.3 L (3.5-5.1) mmol/L Chloride 106 (98-107) mmol/L Carbon Dioxide 29 (21-32) mmol/L Anion Gap 7 (3-11) BUN 70 H (6-23) mg/dl Creatinine 2.79 H (0.6-1.4) mg/dl Est Cr Clr Drug Dosing 22.6 ml/min eGFR 22.35 BUN/Creatinine Ratio 25.1 H (10-20) Glucose 151 H (70-99(Fasting)) mg/dl Lactate 1.6 (0.4-2.0) mmol/L Calcium 8.2 L (8.6-10.3) mg/dl Magnesium 1.7 (1.7-2.4) mg/dl Total Bilirubin 0.4 (0.2-1.0) mg/dl AST 16 (13-39) U/L ALT 23 (7-52) U/L Alkaline Phosphatase 80 (34-104) U/L Troponin I High Sens 192.7 H* 185.5 H* (0-20) pg/ml B-Natriuretic Peptide 687 H (0-100) pg/ml Total Protein 6.9 (6.0-8.3) gm/dl Albumin 3.1 L (3.4-5.0) gm/dl Globulin 3.8 (2.5-4.0) gm/dl Albumin/Globulin Ratio 0.8 L (0.9-2) Procalcitonin 0.22 (0-0.5) ng/ml Adenovirus (PCR) Not Detected (NotDetected) B. pertussis DNA (PCR) Not Detected (NotDetected) B.parapertussis DNA PCR Not Detected (NotDetected) C. pneumoniae DNA (PCR) Not Detected (NotDetected) Coronavirus OC43 (PCR) Not Detected (NotDetected) Coronavirus HKU1 (PCR) Not Detected (NotDetected) Coronavirus 229E (PCR) Not Detected (NotDetected) SARS-CoV-2 (PCR) Not Detected (NotDetected) Coronavirus NL63 (PCR) Not Detected (NotDetected) Human Metapneumovir PCR Not Detected (NotDetected) Influenza Type A (PCR) Not Detected (NotDetected) Influenza Type B (PCR) Not Detected (NotDetected) M. pneumoniae (PCR) Not Detected (NotDetected) Parainfluenza 1 (PCR) Not Detected (NotDetected) Parainfluenza 2 (PCR) Not Detected (NotDetected) Parainfluenza 3 (PCR) Not Detected (NotDetected) Parainfluenza 4 (PCR) Not Detected (NotDetected) RSV (PCR) Not Detected (NotDetected) Entero/Rhino (PCR) Not Detected (NotDetected) Administered Medications Diltiazem HCl 125 mg/ Dextrose 125 mls @ 10 mls/hr IV .[id number] FORMERLY [facility], 1928–1983; Protocol Stop: 05/21/25 14:59 Last Titration: 04/21/25 16:27 Dose: 10 mg/hr, 10 mls/hr Documented By: LEANDER Co-signed By: ADEN Admin: 04/21/25 15:15 Dose: 5 mg/hr, 5 mls/hr Documented By: MWSid Co-signed By: SHB Discontinued Medications Albuterol (Albut/Ipratrop 3mg/0.5mg Neb 3 Ml Vial) 3 ml INH NOW STA Stop: 04/21/25 11:42 Last Admin: 04/21/25 11:56 Dose: 3 ml Documented By: KADIE Furosemide (Furosemide Inj 20 Mg/2 Ml Vial) 20 mg IV ONE ONE Stop: 04/21/25 13:05 Last Admin: 04/21/25 13:15 Dose: 20 mg Documented By: MELODY Piperacillin Sod/Tazobactam Sod (Zosyn) 4.5 gm in 100 mls @ 200 mls/hr IV NOW ONE; Protocol Stop: 04/21/25 12:32 Last Infusion: 04/21/25 13:00 Dose: Infused Documented By: Admin: 04/21/25 12:19 Dose: 200 mls/hr Documented By: ENA Vancomycin HCl 1,750 mg/ (Sodium Chloride) 535 mls @ 200 mls/hr IV NOW ONE Stop: 04/21/25 14:43 Last Admin: 04/21/25 12:57 Dose: 200 mls/hr Documented By: ENA Methylprednisolone (Methylprednisolone 125 Mg/2 Ml Vial) 60 mg IV NOW STA Stop: 04/21/25 11:57 Last Admin: 04/21/25 12:18 Dose: 60 mg Documented By: ENA Metoprolol Tartrate (Metoprolol Tartrate 1 Mg/Ml Vial) 5 mg IV NOW STA Stop: 04/21/25 11:43 Last Admin: 04/21/25 12:05 Dose: 5 mg Documented By: ENA Metoprolol Tartrate (Metoprolol Tartrate 1 Mg/Ml Vial) 5 mg IV NOW STA Stop: 04/21/25 13:08 Last Admin: 04/21/25 13:11 Dose: 5 mg Documented By: MELODY Imaging Data Radiologist's Impression: Chest X-Ray 04/21/25 11:41 XR chest 1V portable CLINICAL HISTORY: Dyspnea COMPARISON STUDY: 03/17/2025 FINDINGS: There is stable cardiomegaly with increased pulmonary vascular congestion. There is increased pulmonary interstitial prominence. There is mild stranding opacity in the lung bases. No pleural effusion or pneumothorax. IMPRESSION: 1. CHF. 2. Atelectasis versus early pneumonia in the lung bases. ACT 112: Negative or not required by law. Electronically signed by: Del Ghosh M.D. 04/21/2025 1:00 PM Discharge Plan Visit Data Chief Complaint: Shortness of Breath/Dyspnea Stated Complaint: HYPOXIA, CARDIAC ASSESSMENT ED Provider: Jacqueline,John T Discharge Problem: Acute respiratory failure with hypoxia, Acute UTI, Acute CHF, Atrial fibrillation with rapid ventricular response Patient Disposition: Admitted As Inpatient Condition: Serious Discharge Instructions Interventions: ED Discharge Assessment Last Done: 04/21/25 15:45
[2025-04-21] MEDS: ALBUT/IPRATROP 3MG/0.5MG NEB 3 ML VIAL INH STA (11:56)
[2025-04-21 12:00] LABS: Basophils # (auto) 0.02 K/uL (0.00-0.20); Basophils % (auto) 0.1 %; Eosinophils # (auto) 0.23 K/uL (0.00-0.50); Eosinophils % (auto) 1.2 %; Hematocrit (blood only) 29.9 % (42.0-52.0); Hemoglobin 9.5 g/dl (14.0-18.0); Immature Granulocytes # (auto) 0.11 K/uL (0.01-0.20); Immature Granulocytes % (auto) 0.6 %; Lymphocytes % (auto) 11.1 %; Mean Corpuscular Hemoglobin 28.7 pg (25.0-34.0); Mean Corpuscular Hgb Conc 31.8 g/dL (32.0-36.0); Mean Corpuscular Volume 90.3 fL (80.0-100.0); Mean Platelet Volume 10.7 fL (9.4-12.4); Monocytes # (auto) 0.93 K/uL (0.11-0.59); Monocytes % (auto) 4.9 %; Neutrophils # (auto) 15.61 K/uL (1.40-6.50); Neutrophils % (auto) 82.1 %; Platelet Count 283 K/uL (130-400); RDW Coefficient of Variation 15.8 % (11.5-14.5); RDW Standard Deviation 52.4 fL (36.4-46.3); Red Blood Count 3.31 M/uL (4.70-6.10)
[2025-04-21] MEDS ORDERED: VANCOMYCIN CONSULT ACTIVE PRN (12:03)
[2025-04-21] MEDS: METOPROLOL TARTRATE 1 MG/ML VIAL IV STA ×2 (12:05→13:11)
[2025-04-21] MEDS: methylPREDNISolone 125 MG/2 ML VIAL IV STA (12:18)
[2025-04-21] MEDS: PIPERACILLIN/TAZOBACTAM 4.5 GM/100 ML BAG IV ONE (12:19)
[2025-04-21 12:20] LABS: Base Excess VBG -0.6 mEq/L; HCO3 VBG 28 mmol/L; Oxygen Saturation VBG < 60.0 %; PCO2 VBG 64 mmHg (38-50); PO2 VBG 31 mmHg; pH VBG 7.25 (7.36-7.41)
[2025-04-21 12:21] LABS: Albumin Globulin Ratio 0.8 (0.9-2); Albumin Level 3.1 gm/dl (3.4-5.0); BUN Creatinine Ratio 25.1 (10-20); Bilirubin,Total 0.4 mg/dl (0.2-1.0); Calcium 8.2 mg/dl (8.6-10.3); Creatinine Clr Calc Pharmacy 22.6 ml/min; Globulin 3.8 gm/dl (2.5-4.0); Magnesium 1.7 mg/dl (1.7-2.4); Potassium 3.3 mmol/L (3.5-5.1); Total Protein 6.9 gm/dl (6.0-8.3)
[2025-04-21 12:33] LABS: INR 1.1 (0.9-1.1); Partial Thromboplastin Ratio 0.9; Partial Thromboplastin Time 25 Seconds (21-31); Prothrombin Time 11.4 Seconds (9.0-12.0)
[2025-04-21 12:42] LABS: Troponin I High Sensitivity 192.7 pg/ml (0-20)
[2025-04-21] MEDS: VANCOMYCIN HCL 1,750 MG in SODIUM CHLORIDE 0.9% 500 ML IV ONE (12:57)
--- NOTE | 2025-04-21 13:02 | XRay Report ---
XR chest 1V portable CLINICAL HISTORY: Dyspnea COMPARISON STUDY: 03/17/2025 FINDINGS: There is stable cardiomegaly with increased pulmonary vascular congestion. There is increas ed pulmonary interstitial prominence. There is mild stranding opacity in the lung bases. No pleural e ffusion or pneumothorax. IMPRESSION: 1. CHF. 2. Atelectasis versus early pneumonia in the lung bases. ACT 112: Negative or not required by law. Electronically signed by: Del Ghosh M.D. 04/21/2025 1:00 PM
[2025-04-21 13:13] LABS: Appearance Urine Turbid (Clear); Bacteria Urine Automated 4+ (None Seen); Bilirubin Urine Negative (Negative); Blood Urine 3+ (Negative); Color Urine Yellow; Epithelial Cell Urine Auto 0-2 /hpf (0-2); Glucose Urine UA Trace (Negative); Ketones Urine Negative (Negative); Leukocyte Esterase Urine 3+ (Negative); Nitrite Urine Negative (Negative); Protein Urine 2+ (Negative); Specific Gravity Urine 1.017 (1.000-1.030); Urobilinogen Urine Negative (Negative); WBC Urine Automated >50 /hpf (0-5); pH Urine >= 9.0 (4.5-7.5)
[2025-04-21] MEDS: FUROSEMIDE INJ 20 MG/2 ML VIAL IV ONE (13:15)
[2025-04-21 13:33] LABS: Cast Urine Automated 0-2 /lpf (0-2)
[2025-04-21 13:33] LABS: Adenovirus PCR Not Detected (NotDetected); Bordetella parapertussis PCR Not Detected (NotDetected); Bordetella pertussis PCR Not Detected (NotDetected); Chlamydia pneumoniae PCR Not Detected (NotDetected); Coronavirus 229E PCR Not Detected (NotDetected); Coronavirus CoV-2 (COVID19)PCR Not Detected (NotDetected); Coronavirus HKU1 PCR Not Detected (NotDetected); Coronavirus NL63 PCR Not Detected (NotDetected); Coronavirus OC43PCR Not Detected (NotDetected); Human Metapneumovirus PCR Not Detected (NotDetected); Influenza A PCR Not Detected (NotDetected); Influenza B PCR Not Detected (NotDetected); Mycoplasma pneumoniae PCR Not Detected (NotDetected); Parainfluenza Virus 1 PCR Not Detected (NotDetected); Parainfluenza Virus 2 PCR Not Detected (NotDetected); Parainfluenza Virus 3 PCR Not Detected (NotDetected); Parainfluenza Virus 4 PCR Not Detected (NotDetected); Respiratory Syncytial VirusPCR Not Detected (NotDetected); Rhinovirus/Enterovirus PCR Not Detected (NotDetected)
[2025-04-21 13:34] LABS: Mucus Urine Present (None Prsent)
--- NOTE | 2025-04-21 13:40 | Electrocardiogram Report ---
Test Reason : Blood Pressure : */* mmHG Vent. Rate : 141 BPM Atrial Rate : * BPM P-R Int : * ms QRS Dur : 124 ms QT Int : 342 ms P-R-T Axes : * -60 121 degrees QTcB Int : 523 ms Atrial fibrillation with rapid ventricular response Right bundle branch block Left anterior fascicular block Bifascicular block Minimal voltage criteria for LVH, may be normal variant ( R in aVL ) Septal infarct , age undetermined T wave abnormality, consider lateral ischemia Abnormal ECG When compared with ECG of 09-Sep-2024 12:27, Significant changes have occurred Confirmed by Hill Echevarria ([id number]) on 04/21/2025 1:39:53 PM Referred By: Confirmed By: Hill Echevarria
[2025-04-21] MEDS ORDERED: ACETAMINOPHEN 325 MG TAB PO PRN (13:46)
[2025-04-21] MEDS ORDERED: bisacodyL 10 MG SUPP PR PRN (13:46)
[2025-04-21] MEDS ORDERED: MAGNESIUM HYDROXIDE SUSP 30 ML UDC PO PRN (13:46)
[2025-04-21] MEDS ORDERED: SOD PHOSPHATE/SOD BIPHOSPHATE ENEMA 132 ML BTL PR PRN (13:46)
[2025-04-21] MEDS ORDERED: oxyCODONE HCL IR 5 MG TAB (IMMEDIATE RELEASE) PO PRN (13:46)
[2025-04-21] MEDS ORDERED: POLYETHYLENE (MIRALAX) 17 GM PACK PO PRN (13:46)
[2025-04-21] MEDS ORDERED: PHARMACY GLYCEMIC MGMT CONSULT PRN (13:49)
--- NOTE | 2025-04-21 15:11 | History & Physical Report ---
Date of Service April 21, 2025 Assessment & Plan (1) Acute CHF: Plan: -hypoxic on admission, placed on Bipap -CXR showing Pulmonary edema with possible PNA at lung bases -lasix 20mg IV BID -echo -cardiology consulted -on zosyn for UTI, PNA coverage -duonebs prn (2) Acute UTI: Plan: -chronic indwelling Hanna -on zosyn due to recent hospitalization and h/o of MRSA/Pseudomonas/Serratia -f/u urine C&S (3) Atrial fibrillation with rapid ventricular response: Plan: -HR in 130s -elevated troponin 192 likely rate related -metoprolol given in ER HR still elevated -cardizem drip started -eliquis -metoprolol 25 mg po daily (4) Acute kidney injury superimposed on CKD: Plan: cr. 2.7, previous 2.2 requiring lasix diuresis for CHF Chronic Hanna with UTI Nephrology consulted (5) Diabetes mellitus, type II: Plan: -RISS -lantus (6) BPH (benign prostatic hyperplasia): Plan: -tamsulonsin History of Present Illness Chief Complaint: hypoxia, congestion, crackles Primary Care Provider: [facility] Pt is a 79 y/o male with pmh of Afib on eliquis, CHF, aortic stenosis, DM, chronic indwelling Hanna, RLE BKA who present from center care after being found to be hypoxic this am with crackles in his lungs. In the ER he complained of SOB, no chest pain. Pt was on a prednisone taper prior to admission. He was placed on Bipap and sats improved to 100%. His labs showed WBC 19k, and cr 2.7 up from 2.2. His CXR showed pulmonary vascular congestion and possible PNA at bases. His UA + for UTI. Pt was noted to be in Afib with RVR at 130bpm. Pt was given metoprolol 5mg IV and HR still elevated. Cardizem drip started. Pt was noted to have troponin 192. He was placed on zosyn/vancomycin for treatment of UTI and possible PNA. He was also started on lasix 20mg IV for possible CHF. Allergies Allergy/AdvReac Type Severity Reaction Status Date / Time lisinopril Allergy Severe Swelling Verified 03/15/25 12:33 of Face/Lips/Tongue hydrochlorothiazide Allergy Unknown Unknown - Unverified 03/15/25 12:33 On file w/ [facility] Home Medications Medication Instructions Recorded Confirmed Type apixaban 5 mg tablet (Eliquis) 5 mg PO BID #60 tabs 08/18/23 03/15/25 Rx insulin glargine 100 unit/mL (3 5 unit subcut HS 04/07/24 03/15/25 History mL) subcutaneous pen (Lantus Solostar U-100 Insulin) polyethylene glycol 3350 17 gram 17 g PO DAILY PRN constipation #14 05/17/24 03/15/25 Rx oral powder packet (Miralax) ea Saccharomyces boulardii 250 mg 250 mg PO AMHS 03/15/25 03/15/25 History capsule (Florastor) acetaminophen 325 mg tablet 650 mg PO Q6H PRN Fever greater 03/15/25 03/15/25 History (Tylenol) than 100/Pain amitriptyline 10 mg tablet 30 mg PO HS 03/15/25 03/15/25 History atorvastatin 40 mg tablet 40 mg PO HS 03/15/25 03/15/25 History bisacodyl 10 mg rectal suppository 10 mg KS DAILY PRN Constipation 03/15/25 03/15/25 History (Dulcolax (bisacodyl)) docusate sodium 100 mg tablet 100 mg PO AMHS 03/15/25 03/15/25 History finasteride 5 mg tablet 5 mg PO QAM 03/15/25 03/15/25 History glucagon 1 mg solution for 1 mg IM DIRECTED PRN 03/15/25 03/15/25 History injection (Glucagon Emergency Kit) Hypoglycemia insulin lispro 100 unit/mL 1 sliding scale dose subcut 03/15/25 03/15/25 History subcutaneous solution (Humalog USEASDIRECTD U-100 Insulin) insulin lispro 100 unit/mL 2 unit subcut TIDWMEAL 03/15/25 03/15/25 History subcutaneous solution (Humalog U-100 Insulin) magnesium hydroxide 400 mg/5 mL 2,400 mg PO DAILY PRN Constipation 03/15/25 03/15/25 History oral suspension (Milk of Magnesia) metoprolol tartrate 25 mg tablet 25 mg PO AMHS 03/15/25 03/15/25 History oxycodone 5 mg tablet 5 mg PO Q6H PRN Pain 03/15/25 03/15/25 History pregabalin 75 mg capsule 75 mg PO AMHS 03/15/25 03/15/25 History sennosides 8.6 mg-docusate sodium 1 tab PO AMHS constipation 03/15/25 03/15/25 History 50 mg tablet (Senokot-S) sodium phosphates 19 gram-7 118 ml KS DAILY PRN Constipation 03/15/25 03/15/25 History gram/118 mL enema (Fleet Enema) tamsulosin 0.4 mg capsule 0.4 mg PO HS 03/15/25 03/15/25 History pantoprazole 40 mg tablet,delayed 40 mg PO BID #60 tabs 03/20/25 Rx release Past Med/Surg History Problem List (Updated 04/21/25 @ 13:46 by John Phillips M.D.) Atrial fibrillation with rapid ventricular response (Acute) Acute CHF (Acute) Acute UTI (Acute) Acute respiratory failure with hypoxia (Acute) Acute kidney injury (CESAR) with acute tubular necrosis (ATN) Acute kidney injury superimposed on CKD S/P BKA (below knee amputation) unilateral Weakness (Acute) Symptomatic anemia (Acute) Catheter-associated urinary tract infection Diabetic foot ulcers Closed compression fracture of thoracic vertebra (Acute) Lymphedema (Chronic) Fall (Acute) Open wound of finger (Acute) Diabetic peripheral neuropathy associated with type 2 diabetes mellitus HTN (hypertension) Diabetic ulcer of right foot (Acute) Charcot foot due to diabetes mellitus Closed T12 fracture (Acute) Diabetic ulcer of left heel (Acute) Hyponatremia (Acute) Otitis externa of left ear Chronic indwelling Hanna catheter Otitis externa Ambulatory dysfunction Severe aortic stenosis Chronic heart failure with preserved ejection fraction (HFpEF) Ear drum perforation Hydronephrosis, bilateral Severe hearing loss Open wound of abdomen (Acute) Homeless (Acute) BPH (benign prostatic hyperplasia) Edema of both legs Hypertension Paroxysmal atrial fibrillation Diabetes mellitus, type II (Chronic) Dyslipidemia Medical History Asymptomatic hypertensive urgency Bilateral lower leg cellulitis Blister of finger Maggot infestation CESAR (acute kidney injury) Surgical History History of ear surgery age 19, mastoid H/O shoulder surgery S/P foot surgery, left Family History Brother Diabetes Social History Smoking Status: Never smoker Tobacco Type: Cigarettes Second Hand Exposure: No; Do You Dip or Chew Tobacco: No; Hx Alcohol Use: Yes Alcohol type: beer Alcohol Intake Frequency: 2-3 x/Week Hx Substance Use: No Preferred Language: Pakistani Communication Ability: Effective Communication Ability Comment: Hearing Loss. Visual Impairment: Limited Hearing Ability: Use of Hearing Aid Meat Products Demonstrator Required: No Beliefs That Will Affect Care: None marital status: Current Living Situation: Assisted Current Living Situation Comment: c care current occupational status: retired How many Children do You have: 3 Feels Safe at Home: Yes during the past year weight has: remained stable Dental Care, Regularly: No Physical Activity Frequency: Does not Exercise Assistive Devices: Denture - Upper, Denture - Lower, Glasses and Other Review of Systems Review of Systems: CONST: Negative for fever, body aches and chills. HENT: Negative for neck pain/stiffness, headache, congestion, sore throat, swelling. EYES: Negative for discharge/pain or vision changes. RESP: Negative for cough/hemoptysis and shortness of breath. CV: Negative chest pain, difficulty breathing, palpitations. ABD: Negative pain, nausea, vomiting. : Negative increase frequency, dysuria, blood in urine or stool. MUSC: Negative for muscle aches, edema. SKIN: Negative rash, lesions/sores. NEURO: Negative headache, dizziness, weakness. Physical Exam Physical Exam: GENERAL APPEARANCE mild distress EYES lids/conjunctiva normal. EARS/NOSE/THROAT Mucous membranes moist, nares normal, lips/teeth normal uvula midline without oral pharyngeal erythema, exudate or swelling TMs normal bilaterally. No lymphangitis/lymphedema. HEAD/NECK Bipap in place, no facial trauma, neck is supple. RESPIRATORY B/L ronchi CARDIAC Regular rate and rhythm, no edema. ABDOMINAL Soft, ND/NT. No evidence of fluid wave. No pulsatile masses on exam, rebound tenderness, Gracia sign or pain over Mcburney's point. MUSCLES/EXTREMITIES No abnormal range of motion, no swelling. Right leg BKA SKIN Warm, pink and dry. No rashes, dermatoses, petechiae or lesions. NEUROLOGICAL Speech is clear and appropriate. Normal level of consciousness. Gait and coordination are normal. 5/5 strength in all extremities. PSYCH Normal mood and affect. Judgement/competence is appropriate Results & Data Results & Data Vital Signs (Past 12 Hours) Vital Signs Temp Pulse Pulse Resp BP Pulse Ox O2 Del Method 04/21/25 14:48 116 H 19 95 BiPAP 04/21/25 14:45 114/89 04/21/25 14:42 130 H 23 04/21/25 14:15 99/64 L 04/21/25 14:09 132 H 21 04/21/25 14:00 114 H 21 04/21/25 14:00 129/90 04/21/25 13:48 115 H 24 96 04/21/25 13:45 120/85 04/21/25 13:26 106 H 120/85 04/21/25 13:15 126 H 22 90 04/21/25 13:11 116 H 110/69 04/21/25 13:00 110/69 04/21/25 12:51 144 H 23 97 04/21/25 12:50 110/69 04/21/25 12:45 102/68 04/21/25 12:45 127 H 18 98 BiPAP 04/21/25 12:40 111/69 04/21/25 12:39 133 H 111/69 04/21/25 12:27 125 H 97 BiPAP 04/21/25 12:24 131 H 22 96 BiPAP 04/21/25 12:20 99/73 L 04/21/25 12:15 111/79 04/21/25 12:10 107/75 04/21/25 12:09 144 H 20 96 BiPAP 04/21/25 12:06 134 H 18 97 BiPAP 04/21/25 12:06 100/66 04/21/25 12:06 100/66 04/21/25 12:06 132 H 04/21/25 12:05 140 H 101/78 04/21/25 12:02 101/78 04/21/25 12:01 84/62 L 04/21/25 12:01 120 H 18 99 BiPAP 04/21/25 12:00 146 H 19 99 BiPAP 04/21/25 11:59 120 H 18 99 04/21/25 11:57 97 BiPAP 04/21/25 11:54 128 H 19 100 BiPAP 04/21/25 11:42 138 H 20 04/21/25 11:30 95 Non-rebreather 04/21/25 11:30 36.9 C 153 H 28 H 120/60 85 L Room Air O2 Flow Rate FiO2 04/21/25 14:48 04/21/25 14:45 04/21/25 14:42 04/21/25 14:15 04/21/25 14:09 04/21/25 14:00 04/21/25 14:00 04/21/25 13:48 04/21/25 13:45 04/21/25 13:26 04/21/25 13:15 04/21/25 13:11 04/21/25 13:00 04/21/25 12:51 04/21/25 12:50 04/21/25 12:45 04/21/25 12:45 04/21/25 12:40 04/21/25 12:39 04/21/25 12:27 04/21/25 12:24 04/21/25 12:20 04/21/25 12:15 04/21/25 12:10 04/21/25 12:09 04/21/25 12:06 04/21/25 12:06 04/21/25 12:06 04/21/25 12:06 04/21/25 12:05 04/21/25 12:02 04/21/25 12:01 04/21/25 12:01 35 04/21/25 12:00 04/21/25 11:59 35 04/21/25 11:57 04/21/25 11:54 04/21/25 11:42 04/21/25 11:30 15 04/21/25 11:30 PG Care Time/CCT Total # of Minutes Spent Total Time Spent with Patient: Total time spent is greater than 50% in coordination of care (as documented) at patient's floor/unit and/or counseling patient: Coding Level of Care Code 39552 INT INP/OBS CARE 3/75MIN Diagnoses Acute CHF I50.9 Acute UTI N39.0 Atrial fibrillation with rapid ventricular response I48.91 Acute kidney injury superimposed on CKD N17.9; N18.9 Type 2 diabetes mellitus with foot ulcer, with long-term current use of insulin E11.621; L97.509; Z79.4 Diabetes mellitus terminal manager insulin use: with terminal manager use Diabetes mellitus complication status: with skin complications Diabetes mellitus complication detail: with foot ulcer BPH (benign prostatic hyperplasia) N40.0 (5) Diabetes mellitus, type II Diabetes mellitus jail insulin use: with terminal manager use Diabetes mellitus complication status: with skin complications Diabetes mellitus complication detail: with foot ulcer Qualified Code(s): E11.621 - Type 2 diabetes mellitus with foot ulcer; L97.509 - Non-pressure chronic ulcer of other part of unspecified foot with unspecified severity; Z79.4 - supervisor intermediates (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
[2025-04-21] MEDS: dilTIAZem HCL 125 MG in DEXTROSE 5% 100 ML IV SCH (15:15)
--- NOTE | 2025-04-21 15:30 | Cardiology Consultation ---
Date of Consultation April 21, 2025 Assessment & Plan (1) Atrial fibrillation with rapid ventricular response: (2) Acute heart failure with preserved ejection fraction: (3) Aortic stenosis: (4) Acute kidney injury superimposed on CKD: (5) Acute UTI: Plan Assessment: 79 year old medically complex male currently residing at [facility] s/p right [facility] admitted for acute respiratory failure, CHF, and A-fib with RVR. labs, urine and imaging suggestive of likely acute infectious process both UTI and possible pneumonia. patient with modest volume overload and A-fib with RVR. Cardiology consulted for further assessment and recommendations. Plan: 1. A-fib with RVR -Known history of P. A-fib. Event likely precipitated by acute hypoxic respiratory failure and acute infectious process. -Most recent echocardiogram 04/07/24 shows LVEF 60-65%, moderate-borderline severe and mild concentric LVH. Ok to continue cardizem gtt at this time. Will obtain repeat echo to reasses. -Continue Metoprolol Tartrate 25mg PO BID, monitor closely on telemetry. -Patient is chronically anticoagulated on Eliquis, Continue 5mg PO BID 2. Acute respiratory failure with hypoxia / Acute CHF (HFpEF) -Patient was hypoxic on arrival. Responding well to duonebs, IV lasix and application of Bipap -Hypoxia is multifactorial in the setting of acute on chronic HF as well as concern for pneumonia -Continued IV antibiotics and nebulizer treatment per primary team -Received a one time dose of lasix 20mg IV. Will likely need a higher dose but will approach cautiously in the setting of 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. Will await examination by Dr. Alegria -Obtain echo -Strict I&O, daily weights, as well as close monitoring of renal function and serum Electrolytes. Supplementation as appropriate for a Goal serum K > 4.0 and Serum Mag > 2.0. -Troponin elevation likely in response to demand ischemia due to hypoxia. Will await echo to assess for any change in EF or WMA 4. 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: -Significant volume overload, will need cautiously diuresed with close monitoring of renal function. 5. Acute UTI -As per management of primary team. precipitating factor for his Acute A-fib Event 6. Aortic Stenosis: -Most recent echo 11/21/24 LVEF 55-59%, severely calcified aortic valve, moderate Aortic stenosis. [id number] 373.5cm/sec. Patient is currently establish with [facility] Valvular clinic (last seen by Dr. Lion 01/02/25). Plan at that time, was to ensure that any issues were resolved with his right leg. He was recommended to have an echo at 6 months with valve clinic follow up. Case has been discussed with Dr. Alegria. Further recommendations regarding plan of care as per his assessment. I spent a total of 40 minutes on the date of service in preparation, delivery, documentation of the care provided to the patient excluding any time spent in the performance of separately billed services. BARTOLO Rizvi [facility] Cardiology [facility] Supervising Physician Co-Signing Physician Notes Attending attestation: Case reviewed with the advanced practitioner. I have personally performed a history and physical examination on the patient. I have reviewed the advanced practitioner's documentation on the date of service referenced in note, and I agree with, and take responsibility for the plan of care. Subjective: Patient acutely ill in appearance. Comfortable on BiPAP in the emergency department during my assessment. Exam: Cardiovascular: Irregular rhythm, 2/6 systolic murmur heard best at right sternal border, bilateral lower extremity edema Skin: Right BKA procedure site clean dry and intact with well-healing incision : Hanna catheter in place draining clear yellow urine Data: EKG reveals atrial fibrillation with rapid ventricular response, bifascicular block noted with resultant T wave inversions. Per review of previous EKG tracings, atrial fibrillation has replaced sinus rhythm. The bifascicular block pattern has been intermittent with similar T wave changes observed on previous tracings. Summary transthoracic echocardiogram performed today 04/21/2025: The study is technically difficult and technically limited. Obtaining acoustic windows was limited due to the patient's acute illness and difficulty laying on his left side. Atrial fibrillation with rapid ventricular response, ventricular rate in the 120s present during the echocardiogram study. The qualitative left ventricular ejection fraction= 55%. The left atrium is moderately dilated. The aortic valve is severely calcified. Aortic valve imaging suggest severe aortic stenosis not confirmed by Doppler examination. The Doppler exam may have underestimated the degree of stenosis. There is no significant aortic regurgitation. There is mild mitral regurgitation. The pulmonary artery systolic pressure is estimated at 38 mmHg (mildly elevated). Compared to the outpatient study performed on 11/21/2024, the velocities across the aortic valve Or higher on that study. Impression/ Plan: -Problem list as noted above * Continue Eliquis 5 mg twice daily for stroke prophylaxis * Received 20 mg IV furosemide in the emergency department, instantly ordered for 20 mg IV twice daily, anticipate he will have a larger diuretic requirement. * Agree with plans for antibiotics, presumed urinary tract infection source with chronic indwelling Hanna catheter. Discussed minimizing IV fluid input with antibiotics with the admitting physician, and we are in the process of considering alternative regimen to vancomycin and Zosyn. * With regards to rate control, change oral metoprolol tartrate to 25 mg twice daily. * Continue low-dose diltiazem for now * Potassium supplementation, 20 mill equivalents x 1 ordered which can be administered when he has a break from his BiPAP mask. I spent a total of 20 minutes coordinating, documenting, and providing care for this patient excluding time spent in the performance of separately billed services or time spent by another provider. Cyrus Alegria DO History of Present Illness Reason for Consultation: CHF, afib with RVR Requesting Physician: KEIRA Hospitalist Attending Physician: Rafael Pop MD History of Present Illness HPI: patient is a 79 year old male with PMHx as noted below that presented to the ER from [facility] with acute concerns of hypoxia and crackles in his lungs. Patient received O2 supplementation and multiple duonebs in route to the ER. Patient was placed on Bipap with improved oxygen saturations. He received a one time dose of Furosemide 20mg IV at 1304 Elevated WBC 19.0 Serum K 3.3 Serum Mag 1.7 Cr. 2.7 High sensitivity troponin 192.7/185.5 Chest xay: IMPRESSION: 1. CHF. 2. Atelectasis versus early pneumonia in the lung bases. EKG on admission shows A-fib with RVR rate 141bpm. right BBB, LAFB/bifasicular block. QTc 523ms. T wave abnormality in lateral leads. UA +, culture pending Patient was started on IV vanco and Zozyn per primary team patient was given IV metoprolol 5mg IVP and started on a cardizem gtt at 15:15 Cardiac Problems: Paroxysmal atrial fibrillation [id number] VASc 4 (age, HTN, DM II), urgent DCCV 07/2023 while admitted to ICU. On Eliquis Moderate aortic stenosis follows with Dr. Lion in valve clinic Very hard of hearing Chronic HFpEF DM II HTN HLD Chronic indwelling catheter Recent Right lower extremity B[place] [facility] [place] Echocardiogram pending Upon seeing patient he is resting in bed, but awakens to verbal stimuli. He is very hard of hearing, but has a amplifier set on and can hear well with it. He denies any chest pain or pressure. Denies palpitations. patient does endorse shortness of breath, but states the Bipap is helping, he's just "very thirsty". Review of Telemetry shows A-fib with RVR, rates 120-140s Allergies Allergy/AdvReac Type Severity Reaction Status Date / Time lisinopril Allergy Severe Swelling Verified 03/15/25 12:33 of Face/Lips/Tongue hydrochlorothiazide Allergy Unknown Unknown - Unverified 03/15/25 12:33 On file w/ [facility] Home Medications Medication Instructions Recorded Confirmed Type apixaban 5 mg tablet (Eliquis) 5 mg PO BID #60 tabs 08/18/23 03/15/25 Rx insulin glargine 100 unit/mL (3 5 unit subcut HS 04/07/24 03/15/25 History mL) subcutaneous pen (Lantus Solostar U-100 Insulin) polyethylene glycol 3350 17 gram 17 g PO DAILY PRN constipation #14 05/17/24 03/15/25 Rx oral powder packet (Miralax) ea Saccharomyces boulardii 250 mg 250 mg PO AMHS 03/15/25 03/15/25 History capsule (Florastor) acetaminophen 325 mg tablet 650 mg PO Q6H PRN Fever greater 03/15/25 03/15/25 History (Tylenol) than 100/Pain amitriptyline 10 mg tablet 30 mg PO HS 03/15/25 03/15/25 History atorvastatin 40 mg tablet 40 mg PO HS 03/15/25 03/15/25 History bisacodyl 10 mg rectal suppository 10 mg [place] DAILY PRN Constipation 03/15/25 03/15/25 History (Dulcolax (bisacodyl)) docusate sodium 100 mg tablet 100 mg PO AMHS 03/15/25 03/15/25 History finasteride 5 mg tablet 5 mg PO QAM 03/15/25 03/15/25 History glucagon 1 mg solution for 1 mg IM DIRECTED PRN 03/15/25 03/15/25 History injection (Glucagon Emergency Kit) Hypoglycemia insulin lispro 100 unit/mL 1 sliding scale dose subcut 03/15/25 03/15/25 History subcutaneous solution (Humalog USEASDIRECTD U-100 Insulin) insulin lispro 100 unit/mL 2 unit subcut TIDWMEAL 03/15/25 03/15/25 History subcutaneous solution (Humalog U-100 Insulin) magnesium hydroxide 400 mg/5 mL 2,400 mg PO DAILY PRN Constipation 03/15/25 03/15/25 History oral suspension (Milk of Magnesia) metoprolol tartrate 25 mg tablet 25 mg PO AMHS 03/15/25 03/15/25 History oxycodone 5 mg tablet 5 mg PO Q6H PRN Pain 03/15/25 03/15/25 History pregabalin 75 mg capsule 75 mg PO AMHS 03/15/25 03/15/25 History sennosides 8.6 mg-docusate sodium 1 tab PO AMHS constipation 03/15/25 03/15/25 History 50 mg tablet (Senokot-S) sodium phosphates 19 gram-7 118 ml [place] DAILY PRN Constipation 03/15/25 03/15/25 History gram/118 mL enema (Fleet Enema) tamsulosin 0.4 mg capsule 0.4 mg PO HS 03/15/25 03/15/25 History pantoprazole 40 mg tablet,delayed 40 mg PO BID #60 tabs 03/20/25 Rx release Patient History Medical History Asymptomatic hypertensive urgency Bilateral lower leg cellulitis Blister of finger Maggot infestation CESAR (acute kidney injury) Surgical History History of ear surgery age 19, mastoid H/O shoulder surgery S/P foot surgery, left Family History Brother Diabetes Social History Smoking Status: Never smoker Tobacco Type: Cigarettes Second Hand Exposure: No; Do You Dip or Chew Tobacco: No; Hx Alcohol Use: Yes Alcohol type: beer Alcohol Intake Frequency: 2-3 x/Week Hx Substance Use: No Preferred Language: Romansh Communication Ability: Effective Communication Ability Comment: Hearing Loss. Visual Impairment: Limited Hearing Ability: Use of Hearing Aid Automation Test Engineer Required: No Beliefs That Will Affect Care: None marital status: Current Living Situation: Longterm Current Living Situation Comment: c care current occupational status: retired How many Children do You have: 3 Feels Safe at Home: Yes during the past year weight has: remained stable Dental Care, Regularly: No Physical Activity Frequency: Does not Exercise Assistive Devices: Denture - Upper, Denture - Lower, Glasses and Other Review of Systems Review of Systems: All systems reviewed & are unremarkable except as noted in HPI & below hard of hearing, but does well with Amplifier Physical Exam Physical Exam: Temp Pulse Resp BP Pulse Ox O2 Del Method O2 Flow Rate 37.9 C H 127 H 20 135/98 99 BiPAP 15 04/21/25 16:00 04/21/25 16:00 04/21/25 16:00 04/21/25 16:00 04/21/25 16:00 04/21/25 16:00 04/21/25 11:30 FiO2 35 04/21/25 12:01 Constitutional: well developed, + acute distress, + ill appearing, + frail appearing and + edematous ENMT: Ears: + hearing impairment (does well with amplifier) Neck: normal visual inspection and trachea midline Respiratory: + labored breathing; no respiratory dist ress and no cough Auscultation: + diminished lung sounds (throughout) and + crackles (bilateral bases ); no rales, no rhonchi and no wheezes Cardiovascular: Rate/Rhythm: + tachycardic and + irregularly irregular Heart Sounds: normal S1 and normal S2 Vessels: dorsalis pedis pulses present (left foot only. Right leg amputation); no JVD Extremities: + edema (+2 ble) Skin: no rashes, warm and dry (PALE) Psychiatric: Orientation: alert and oriented x 3 Results & Data Laboratory Results Cardiac Enzymes 04/21/25 04/21/25 Range/Units 11:43 13:38 AST 16 (13-39) U/L Troponin I High Sens 192.7 H* 185.5 H* (0-20) pg/ml B-Natriuretic Peptide 687 H (0-100) pg/ml Coagulation 04/21/25 Range/Units 11:43 PT 11.4 (9.0-12.0) Seconds APTT 25 (21-31) Seconds B-Natriuretic Peptide 687 H (0-100) pg/ml CBC 04/21/25 Range/Units 11:43 WBC 19.00 H (4.8-10.8) K/ul RBC 3.31 L (4.70-6.10) M/uL Hgb 9.5 L (14.0-18.0) g/dl Hct 29.9 L (42.0-52.0) % Plt Count 283 (130-400) K/uL Neut # (Auto) 15.61 H (1.40-6.50) K/uL Lymph # (Auto) 2.10 (1.20-3.40) K/uL Lee # (Auto) 0.93 H (0.11-0.59) K/uL Eos # (Auto) 0.23 (0.00-0.50) K/uL Baso # (Auto) 0.02 (0.00-0.20) K/uL Comprehensive Metabolic Panel 04/21/25 Range/Units 11:43 Sodium 142 (136-145) mmol/L Potassium 3.3 L (3.5-5.1) mmol/L Chloride 106 (98-107) mmol/L Carbon Dioxide 29 (21-32) mmol/L BUN 70 H (6-23) mg/dl Creatinine 2.79 H (0.6-1.4) mg/dl Glucose 151 H (70-99(Fasting)) mg/dl Calcium 8.2 L (8.6-10.3) mg/dl AST 16 (13-39) U/L ALT 23 (7-52) U/L Alkaline Phosphatase 80 (34-104) U/L Total Protein 6.9 (6.0-8.3) gm/dl Albumin 3.1 L (3.4-5.0) gm/dl Intake and Output 04/21/25 04/21/25 04/21/25 06:59 14:59 22:59 Intake Total 100 / 100 Balance 100 / 100 Intake: IV 100 / 100 Piperacillin/Tazobactam 4.5 gm 100 / 100 In 100 ml @ 200 mls/hr IV NOW ONE Rx#:[id number] Other: Weight 87.3 kg Weight Measurement Method Built in [facility] Patient Weight 04/22/25 06:59 Weight 87.3 kg Diagnostic Findings Cardiac Enzymes 04/21/25 04/21/25 Range/Units 11:43 13:38 AST 16 (13-39) U/L Troponin I High Sens 192.7 H* 185.5 H* (0-20) pg/ml B-Natriuretic Peptide 687 H (0-100) pg/ml Coagulation 04/21/25 Range/Units 11:43 PT 11.4 (9.0-12.0) Seconds APTT 25 (21-31) Seconds B-Natriuretic Peptide 687 H (0-100) pg/ml CBC 04/21/25 Range/Units 11:43 WBC 19.00 H (4.8-10.8) K/ul RBC 3.31 L (4.70-6.10) M/uL Hgb 9.5 L (14.0-18.0) g/dl Hct 29.9 L (42.0-52.0) % Plt Count 283 (130-400) K/uL Neut # (Auto) 15.61 H (1.40-6.50) K/uL Lymph # (Auto) 2.10 (1.20-3.40) K/uL Lee # (Auto) 0.93 H (0.11-0.59) K/uL Eos # (Auto) 0.23 (0.00-0.50) K/uL Baso # (Auto) 0.02 (0.00-0.20) K/uL Comprehensive Metabolic Panel 04/21/25 Range/Units 11:43 Sodium 142 (136-145) mmol/L Potassium 3.3 L (3.5-5.1) mmol/L Chloride 106 (98-107) mmol/L Carbon Dioxide 29 (21-32) mmol/L BUN 70 H (6-23) mg/dl Creatinine 2.79 H (0.6-1.4) mg/dl Glucose 151 H (70-99(Fasting)) mg/dl Calcium 8.2 L (8.6-10.3) mg/dl AST 16 (13-39) U/L ALT 23 (7-52) U/L Alkaline Phosphatase 80 (34-104) U/L Total Protein 6.9 (6.0-8.3) gm/dl Albumin 3.1 L (3.4-5.0) gm/dl
[2025-04-21] MEDS ORDERED: GLUCOSE 40% GEL 15 GM TUBE PO PRN (16:30)
[2025-04-21] MEDS ORDERED: DEXTROSE 50% 50 ML SYRINGE IV PRN (16:30)
[2025-04-21] MEDS ORDERED: GLUCAGON FOR INJ 1 MG VIAL SQ PRN (16:30)
[2025-04-21] MEDS ORDERED: GLUCOSE 10 TAB/TUBE PO PRN (16:30)
[2025-04-21] MEDS: STAT IV Infusion **Titration per Protocol STA (16:53)
[2025-04-21] MEDS ORDERED: PIPERACILLIN/TAZOBACTAM 4.5 GM/100 ML BAG IV SCH (18:00)
[2025-04-21] MEDS: INSULIN ASPART PER UNIT CHARGE SC SCH (18:01)
[2025-04-21] MEDS: POTASSIUM CHLORIDE CRTAB 20 MEQ TABCR PO STA (18:01)
[2025-04-21] MEDS: cefTRIAXone SODIUM 2,000 MG/50 ML BAG IV SCH (18:02)
[2025-04-21] MEDS: FUROSEMIDE INJ 20 MG/2 ML VIAL IV SCH (18:02)
[2025-04-21] MEDS ORDERED: Nursing to Pharmacy Communication SCH (19:15)
[2025-04-21] MEDS ORDERED: METOPROLOL TARTRATE 25 MG TAB PO SCH (21:00)
[2025-04-21] MEDS ORDERED: DOCUSATE SODIUM/SENNA 50/8.6MG TAB PO SCH (21:00)
[2025-04-21] MEDS ORDERED: SACCHAROMYCES BOULARDII 250 MG CAP PO SCH (21:00)
[2025-04-21] MEDS ORDERED: LANTUS PER UNIT CHARGE SC SCH (21:00)
[2025-04-21] MEDS ORDERED: NON-FORMULARY MEDICATION (Insulin Glargine [Lantus Solostar U-100 Insulin] 100 unit/mL (3 SQ SCH (21:00)
[2025-04-21] MEDS ORDERED: APIXABAN 5 MG TABLET PO SCH (21:00)
[2025-04-21] MEDS: LANTUS PER UNIT CHARGE SC SCH (21:58)
[2025-04-21] MEDS: AMITRIPTYLINE HCL 10 MG TAB PO SCH (22:00)
[2025-04-21] MEDS: PREGABALIN 75 MG CAP PO SCH (22:00)
[2025-04-21] MEDS: APIXABAN 5 MG TABLET PO SCH (22:00)
[2025-04-21] MEDS: ATORVASTATIN 40 MG TAB PO SCH (22:00)
[2025-04-21] MEDS: DOCUSATE SODIUM 100 MG CAP PO SCH (22:00)
[2025-04-21] MEDS: TAMSULOSIN HCL 0.4 MG CAP PO SCH (22:00)
[2025-04-21] MEDS: METOPROLOL TARTRATE 25 MG TAB PO SCH (22:01)
[2025-04-21] MEDS: PANTOprazole 40 MG TAB PO SCH (22:01)
[2025-04-22] MEDS: INSULIN ASPART PER UNIT CHARGE SC ONE (02:52)
[2025-04-22 04:43] LABS: A calco-baum cmplx NotReported Not Detected (NotDetected); Bact fragilis Not Reported Not Detected (NotDetected); Blood Culture Id Panel See PCR Comment (NotDetected); C auris Not Reported Not Detected (NotDetected); CTX-M Resistant Gene Not Detected (NotDetected); Calbicans Not Reported Not Detected (NotDetected); Candida glabrata Not Reported Not Detected (NotDetected); Candida krusei Not Reported Not Detected (NotDetected); Cneoformans/gatti Not Reported Not Detected (NotDetected); Cparapsilosis Not Reported Not Detected (NotDetected); Ctropicalis Not Reported Not Detected (NotDetected); E cloacae compx Not Reported Not Detected (NotDetected); Efaecalis Not Reported Not Detected (NotDetected); Efaecium Not Reported Not Detected (NotDetected); Enterobacterales Not Reported DETECTED (NotDetected); Escherichia coli Not Reported Not Detected (NotDetected); H influenzae Not Reported Not Detected (NotDetected); IMP Resistant Gene Not Detected (NotDetected); K aerogenes Not Reported Not Detected (NotDetected); KPC Resistant Gene Not Detected (NotDetected); Koxytoca Not Reported Not Detected (NotDetected); Kpneumoniae grp Not Reported Not Detected (NotDetected); Lmonocyt Not Reported Not Detected (NotDetected); N meningitidis Not Reported Not Detected (NotDetected); NDM Resistant Gene Not Detected (NotDetected); OXA 48 Like Resistant Gene Not Detected (NotDetected); P aeruginosa Not Reported Not Detected (NotDetected); Proteus spp Not Reported DETECTED (NotDetected); Salmonella spp Not Reported Not Detected (NotDetected); Staph lugdunensis Not Reported Not Detected (NotDetected); Staph spp. Not Reported Not Detected (NotDetected); Staphaureus Not Reported Not Detected (NotDetected); Staphepi Not Reported Not Detected (NotDetected); Stenmaltophilia Not Reported Not Detected (NotDetected); Strep agal(GrpB) Not Reported Not Detected (NotDetected); Strep pneum Not Reported Not Detected (NotDetected); Strep pyog (GrpA) Not Reported Not Detected (NotDetected); Strep spp Not Reported Not Detected (NotDetected); VIM Resistant Gene Not Detected (NotDetected)
[2025-04-22 05:11] LABS: Enterobacterales DETECTED (NotDetected); Proteus species DETECTED (NotDetected)
[2025-04-22] MEDS: FINASTERIDE 5 MG TAB PO SCH (08:13)
[2025-04-22 08:21] LABS: Hemoglobin 9.2 g/dl (14.0-18.0); Mean Corpuscular Hgb Conc 31.7 g/dL (32.0-36.0); Mean Corpuscular Volume 88.4 fL (80.0-100.0); Mean Platelet Volume 10.7 fL (9.4-12.4); Platelet Count 263 K/uL (130-400); RDW Coefficient of Variation 15.8 % (11.5-14.5); RDW Standard Deviation 50.4 fL (36.4-46.3); Red Blood Count 3.28 M/uL (4.70-6.10); White Blood Count 20.31 K/ul (4.8-10.8)
[2025-04-22 08:38] LABS: Potassium 4.2 mmol/L (3.5-5.1)
[2025-04-22] MEDS ORDERED: AZITHROMYCIN 250 MG TAB PO SCH (09:00)
--- NOTE | 2025-04-22 09:12 | Cardiology Progress Note ---
Date of Service April 22, 2025 Assessment & Plan (1) Atrial fibrillation with rapid ventricular response: (2) Acute heart failure with preserved ejection fraction: (3) Aortic stenosis: Plan: -suspected severe (4) Acute kidney injury superimposed on CKD: (5) Acute UTI: Plan Assessment: 79 year old medically complex male currently residing at [facility] s/p right A admitted for acute respiratory failure, CHF, and A-fib with RVR. labs, urinalysis, cultures and imaging suggestive of likely acute infectious process both UTI and possible pneumonia. patient with modest volume overload and A-fib with RVR. Cardiology consulted for further assessment and recommendations. Urine culture = Proteus mirabilis 1/2 blood cultures from 04/21/25: with gram negative bacilli blood PCR + for Enterobacterales and Proteus Plan: 1. atrial fibrillation with RVR -Continue Eliquis -Wean diltiazem -increase metoprolol tartrate to 25 mg QID. 2. Acute respiratory failure with hypoxia / Acute CHF (HFpEF) -mild / relatively flat troponin elevation, likely due to myocardial strain / tachycardia. -Repeat EKG -Continue furosemide 20 mg IV BID , creatinine pending. 4. 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: -Significant volume overload, will need cautiously diuresed with close monitoring of renal function. -Results of BMP pending 5. Acute UTI -Continue ceftriaxone IV 6. Aortic Stenosis: -suspected severe base on appearance of valve. Valvular gradients likely underestimate degree of stenosis. -Pt to establish with valve clinic. Need to resolve infectious issues prior to consideration of TAVR. Rebecca Alegria DO Admission and Anticipated Discharge Date Admission Date: April 21, 2025 Subjective Patient seen in cardiology follow up. Denies subjective shortness of breath or palpitations. Feeling improved. No longer on BiPap and pulse oximetry =100% on 3L/m NC this am. Telemetry reveals atrial fibrillation with ventricular rates in the range of 80- 100 bpm. Review of Systems Review of Systems: All systems reviewed & are unremarkable except as noted in HPI & below Physical Exam Constitutional: + ill appearing, + frail appearing and + edematous; no acute distress Neck: trachea midline, no thyromegaly Respiratory: Auscultation: + diminished lung sounds (mildly decreased breath sounds in the bases bilaterally ) Cardiovascular: Rate/Rhythm: + irregularly irregular Heart Sounds: + murmur (2/6 SM heard best at RSB ) Vessels: no JVD Extremities: + edema (1+ bilateral LE edema ) Gastrointestinal (Abdomen): normal bowel sounds, soft, nontender, no hepatosplenomegaly Musculoskeletal: s/p right below the knee amputation, site clean , dry and intact Genitourinary: Hanna catheter in place draining clear , yellow urine Results & Data Vital Signs (Past 12 Hours) Vital Signs Temp Pulse Pulse Resp BP Pulse Ox O2 Del Method 04/22/25 07:47 36.3 C L 85 29 H 116/89 100 Nasal Cannula 04/22/25 02:56 37.0 C 85 16 130/85 98 Room Air 04/21/25 23:43 104 H 17 100 04/21/25 23:14 36.8 C 78 17 140/68 95 Nasal Cannula 04/21/25 22:41 105 H 04/21/25 22:27 Nasal Cannula O2 Flow Rate FiO2 04/22/25 07:47 3 04/22/25 02:56 04/21/25 23:43 30 04/21/25 23:14 04/21/25 22:41 04/21/25 22:27 4 Laboratory Results Cardiac Enzymes 04/21/25 04/21/25 Range/Units 11:43 13:38 AST 16 (13-39) U/L Troponin I High Sens 192.7 H* 185.5 H* (0-20) pg/ml B-Natriuretic Peptide 687 H (0-100) pg/ml Coagulation 04/21/25 Range/Units 11:43 PT 11.4 (9.0-12.0) Seconds APTT 25 (21-31) Seconds B-Natriuretic Peptide 687 H (0-100) pg/ml CBC 04/21/25 04/22/25 Range/Units 11:43 07:59 WBC 19.00 H 20.31 H (4.8-10.8) K/ul RBC 3.31 L 3.28 L (4.70-6.10) M/uL Hgb 9.5 L 9.2 L (14.0-18.0) g/dl Hct 29.9 L 29.0 L (42.0-52.0) % Plt Count 283 263 (130-400) K/uL Neut # (Auto) 15.61 H (1.40-6.50) K/uL Lymph # (Auto) 2.10 (1.20-3.40) K/uL [place] # (Auto) 0.93 H (0.11-0.59) K/uL Eos # (Auto) 0.23 (0.00-0.50) K/uL Baso # (Auto) 0.02 (0.00-0.20) K/uL Comprehensive Metabolic Panel 04/21/25 04/22/25 Range/Units 11:43 07:59 Sodium 142 (136-145) mmol/L Potassium 3.3 L 4.2 D (3.5-5.1) mmol/L Chloride 106 (98-107) mmol/L Carbon Dioxide 29 (21-32) mmol/L BUN 70 H (6-23) mg/dl Creatinine 2.79 H (0.6-1.4) mg/dl Glucose 151 H (70-99(Fasting)) mg/dl Calcium 8.2 L (8.6-10.3) mg/dl AST 16 (13-39) U/L ALT 23 (7-52) U/L Alkaline Phosphatase 80 (34-104) U/L Total Protein 6.9 (6.0-8.3) gm/dl Albumin 3.1 L (3.4-5.0) gm/dl Diagnostic Findings Urine culture = Proteus mirabilis 1/2 blood cultures from 04/21/25: with gram negative bacilli blood PCR + for Enterobacterales and Proteus
--- NOTE | 2025-04-22 09:22 | Hospitalist Progress Note ---
Date of Service April 22, 2025 Assessment & Plan (1) Acute CHF: Plan: -CXR showing Pulmonary edema with possible PNA at lung bases -lasix 20mg IV BID -echo shows EF 55% -cardiology consult appreciated -on rocephin for UTI, PNA coverage -duonebs prn (2) Acute UTI: Plan: -chronic indwelling Hanna -rocephin -f/u urine C&S (3) Atrial fibrillation with rapid ventricular response: Plan: -HR in 130s -elevated troponin 192 likely rate related -metoprolol given in ER HR still elevated -cardizem drip started -eliquis -metoprolol 25 mg po daily (4) Acute kidney injury superimposed on CKD: Plan: cr. 2.7, previous 2.2 requiring lasix diuresis for CHF Chronic Hanna with UTI Nephrology consulted (5) Diabetes mellitus, type II: Plan: -RISS -lantus (6) BPH (benign prostatic hyperplasia): Plan: -tamsulonsin Admission and Anticipated Discharge Date Admission Date: April 21, 2025 Subjective No events overnight. Pt breathing well on RA. Review of Systems Review of Systems: CONST: Negative for fever, body aches and chills. HENT: Negative for neck pain/stiffness, headache, congestion, sore throat, swelling. EYES: Negative for discharge/pain or vision changes. RESP: Negative for cough/hemoptysis and shortness of breath. CV: Negative chest pain, difficulty breathing, palpitations. ABD: Negative pain, nausea, vomiting. : Negative increase frequency, dysuria, blood in urine or stool. MUSC: Negative for muscle aches, edema. SKIN: Negative rash, lesions/sores. NEURO: Negative headache, dizziness, weakness. Physical Exam Physical Exam: GENERAL APPEARANCE mild distress EYES lids/conjunctiva normal. EARS/NOSE/THROAT Mucous membranes moist, nares normal, lips/teeth normal uvula midline without oral pharyngeal erythema, exudate or swelling TMs normal bilaterally. No lymphangitis/lymphedema. HEAD/NECK Bipap in place, no facial trauma, neck is supple. RESPIRATORY B/L ronchi CARDIAC Regular rate and rhythm, no edema. ABDOMINAL Soft, ND/NT. No evidence of fluid wave. No pulsatile masses on exam, rebound tenderness, Gracia sign or pain over Mcburney's point. MUSCLES/EXTREMITIES No abnormal range of motion, no swelling. Right leg BKA SKIN Warm, pink and dry. No rashes, dermatoses, petechiae or lesions. NEUROLOGICAL Speech is clear and appropriate. Normal level of consciousness. Gait and coordination are normal. 5/5 strength in all extremities. PSYCH Normal mood and affect. Judgement/competence is appropriate Results & Data Results & Data Vital Signs (Past 12 Hours) Vital Signs Temp Pulse Pulse Resp BP Pulse Ox O2 Del Method 04/22/25 07:47 36.3 C L 85 29 H 116/89 100 Nasal Cannula 04/22/25 02:56 37.0 C 85 16 130/85 98 Room Air 04/21/25 23:43 104 H 17 100 04/21/25 23:14 36.8 C 78 17 140/68 95 Nasal Cannula 04/21/25 22:41 105 H 04/21/25 22:27 Nasal Cannula O2 Flow Rate FiO2 04/22/25 07:47 3 04/22/25 02:56 04/21/25 23:43 30 04/21/25 23:14 04/21/25 22:41 04/21/25 22:27 4 PG Care Time/CCT Total # of Minutes Spent Total Time Spent with Patient: Total time spent is greater than 50% in coordination of care (as documented) at patient's floor/unit and/or counseling patient: Coding Level of Care Code 62933 SUB INP/OBS CARE 2/35MIN Diagnoses Acute CHF I50.9 Acute UTI N39.0 Atrial fibrillation with rapid ventricular response I48.91 Acute kidney injury superimposed on CKD N17.9; N18.9 Type 2 diabetes mellitus with foot ulcer, with long-term current use of insulin E11.621; L97.509; Z79.4 Diabetes mellitus terminal superintendent insulin use: with terminal superintendent use Diabetes mellitus complication status: with skin complications Diabetes mellitus complication detail: with foot ulcer BPH (benign prostatic hyperplasia) N40.0 (5) Diabetes mellitus, type II Diabetes mellitus terminal superintendent insulin use: with terminal superintendent use Diabetes mellitus complication status: with skin complications Diabetes mellitus complication detail: with foot ulcer Qualified Code(s): E11.621 - Type 2 diabetes mellitus with foot ulcer; L97.509 - Non-pressure chronic ulcer of other part of unspecified foot with unspecified severity; Z79.4 - nursing home (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
[2025-04-22 09:30] LABS: BUN Creatinine Ratio 24.2 (10-20); Calcium 8.2 mg/dl (8.6-10.3); Creatinine Clr Calc Pharmacy 21.6 ml/min
--- NOTE | 2025-04-22 10:21 | Communication Note ---
Date of Service: April 22, 2025 Repeat EKG 04/22/25 reviewed and interpreted independently: AF at 87 bpm, bifascicular block, LVH. Compared to the tracing from 04/21/25, the ventricular rate has improved. The T wave inversions in the anterior leads have resolved. Rebecca Alegria DO
[2025-04-22] MEDS: ALBUT/IPRATROP 3MG/0.5MG NEB 3 ML VIAL NEB PRN (11:21)
--- NOTE | 2025-04-22 12:28 | Nephrology Consultation ---
Date of Consultation April 22, 2025 Assessment & Plan (1) Acute kidney injury superimposed on CKD: Current creat of 2.9 is slightly higher than few days ago when it was 2.2 but still within the range for last 2 months. May not improve that much. No need for further workup He does need Diuresis. 20 mg iv bid may not be enough given CKD4. Can have bigger dose. Recommend 40 iv bid at least and also some post discharge (2) Acute heart failure with preserved ejection fraction: reviewed cardiology note and in agreement. Given his extensive CKD 4, cardiac issues he would benefit with some Diuretics daily even after discharge (3) Acute respiratory failure with hypoxia: Related with Acute CHF and Pneumonia. reviewed CXR independently and does have CHF Plan Case complexity high. reviewed H and P and Dc Summary multiple recent admissions. reviewed Cards note and in agreement with plan. total time spent 82 mins History of Present Illness Reason for Consultation: 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 4 Attending Physician: Rafael Pop MD History of Present Illness 79/M with progressive worsenign CKD. back had creat of 1.7 but lately running in the low to mid 2's. he has Afib on eliquis, CHF, aortic stenosis, DM 2, chronic indwelling Hanna, RLE BKA who presented from center care after being found to be hypoxic. Was having SOB but no chest pain. Pt was on a prednisone taper prior to admission. He was placed on Bipap and sats improved to 100%. His labs showed WBC 19k, and cr 2.7 up from 2.2. CXR showed pulmonary vascular congestion and possible PNA at bases. His UA + for UTI. Pt was noted to be in Afib with RVR at 130bpm. Pt was given metoprolol 5mg IV and HR still elevated. Cardizem drip started. Pt was noted to have troponin 192. He was placed on zosyn/vancomycin for treatment of UTI and possible PNA. He was also started on lasix 20mg IV for possible CHF. does not appear he was on Any diuretics pre admission. 2 Admission in the month of March--first for BKA and then second for severe anemia with hgb of 6.2. Poor socio-econimoc status and poor baseline health. Since mar, 2025 creat has been in the range of 2.2 to 3.3. came in with creat of 2.8 and today creat 2.93. few days ago had 2.2 ROS--see HPI. tonia historian. 12 Systems reviewed and negative Physical Exam Constitutional: + ill + frail no acute distress at rest Neck: Supple. No JVD Respiratory: diminished lung sounds , b/l basal crackles Cardiovascular: + irregularly irregular Heart Sounds: + Systolic murmur ,1+ bilateral LE edema ) Gastrointestinal (Abdomen): Soft, nontender Musculoskeletal: s/p right below the knee amputation Genitourinary: Hanna catheter in place draining clear , yellow urine Allergies Allergy/AdvReac Type Severity Reaction Status Date / Time lisinopril Allergy Severe Swelling Verified 03/15/25 12:33 of Face/Lips/Tongue hydrochlorothiazide Allergy Unknown Unknown - Unverified 03/15/25 12:33 On file w/ [facility] Home Medications Medication Instructions Recorded Confirmed Type apixaban 5 mg tablet (Eliquis) 5 mg PO BID #60 tabs 08/18/23 03/15/25 Rx insulin glargine 100 unit/mL (3 5 unit subcut HS 04/07/24 03/15/25 History mL) subcutaneous pen (Lantus Solostar U-100 Insulin) polyethylene glycol 3350 17 gram 17 g PO DAILY PRN constipation #14 05/17/24 03/15/25 Rx oral powder packet (Miralax) ea Saccharomyces boulardii 250 mg 250 mg PO AMHS 03/15/25 03/15/25 History capsule (Florastor) acetaminophen 325 mg tablet 650 mg PO Q6H PRN Fever greater 03/15/25 03/15/25 History (Tylenol) than 100/Pain amitriptyline 10 mg tablet 30 mg PO HS 03/15/25 03/15/25 History atorvastatin 40 mg tablet 40 mg PO HS 03/15/25 03/15/25 History bisacodyl 10 mg rectal suppository 10 mg [place] DAILY PRN Constipation 03/15/25 03/15/25 History (Dulcolax (bisacodyl)) docusate sodium 100 mg tablet 100 mg PO AMHS 03/15/25 03/15/25 History finasteride 5 mg tablet 5 mg PO QAM 03/15/25 03/15/25 History glucagon 1 mg solution for 1 mg IM DIRECTED PRN 03/15/25 03/15/25 History injection (Glucagon Emergency Kit) Hypoglycemia insulin lispro 100 unit/mL 1 sliding scale dose subcut 03/15/25 03/15/25 History subcutaneous solution (Humalog USEASDIRECTD U-100 Insulin) insulin lispro 100 unit/mL 2 unit subcut TIDWMEAL 03/15/25 03/15/25 History subcutaneous solution (Humalog U-100 Insulin) magnesium hydroxide 400 mg/5 mL 2,400 mg PO DAILY PRN Constipation 03/15/25 03/15/25 History oral suspension (Milk of Magnesia) metoprolol tartrate 25 mg tablet 25 mg PO AMHS 03/15/25 03/15/25 History oxycodone 5 mg tablet 5 mg PO Q6H PRN Pain 03/15/25 03/15/25 History pregabalin 75 mg capsule 75 mg PO AMHS 03/15/25 03/15/25 History sennosides 8.6 mg-docusate sodium 1 tab PO AMHS constipation 03/15/25 03/15/25 History 50 mg tablet (Senokot-S) sodium phosphates 19 gram-7 118 ml [place] DAILY PRN Constipation 03/15/25 03/15/25 History gram/118 mL enema (Fleet Enema) tamsulosin 0.4 mg capsule 0.4 mg PO HS 03/15/25 03/15/25 History pantoprazole 40 mg tablet,delayed 40 mg PO BID #60 tabs 03/20/25 Rx release Patient History Medical History Asymptomatic hypertensive urgency Bilateral lower leg cellulitis Blister of finger Maggot infestation CESAR (acute kidney injury) Surgical History History of ear surgery age 19, mastoid H/O shoulder surgery S/P foot surgery, left Family History Brother Diabetes Social History Smoking Status: Former smoker Tobacco Type: Cigarettes Second Hand Exposure: No; Do You Dip or Chew Tobacco: No; Hx Alcohol Use: No Hx Substance Use: No Preferred Language: Uzbek Communication Ability: Impaired Communication Ability Comment: Hearing Loss. Visual Impairment: Limited Hearing Ability: Use of Hearing Aid Lumber Marker Required: No Beliefs That Will Affect Care: None marital status: Current Living Situation: Personal Care Facility Current Living Situation Comment: [facility] current occupational status: retired How many Children do You have: 3 Feels Safe at Home: Yes during the past year weight has: remained stable Dental Care, Regularly: No Physical Activity Frequency: Does not Exercise Assistive Devices: Wheelchair Results & Data Vital Signs (Past 12 Hours) Vital Signs Temp Pulse Resp BP Pulse Ox O2 Del Method O2 Flow Rate 04/22/25 11:21 109 H 18 96 Room Air 04/22/25 11:02 36.7 C 109 H 15 128/73 96 Room Air 04/22/25 10:30 15 96 Room Air 0 04/22/25 10:00 99 Room Air 1 04/22/25 09:00 Room Air 0 04/22/25 07:47 36.3 C L 85 29 H 116/89 100 Nasal Cannula 3 04/22/25 02:56 37.0 C 85 16 130/85 98 Room Air Laboratory Results CBC, renal panel, Urine tests
[2025-04-22] MEDS: INSULIN HUMAN REGULAR PER UNIT 5 UNITS in SYRINGE 4.95 ML IV ONE (12:38)
[2025-04-22] MEDS: METOPROLOL TARTRATE 25 MG TAB PO SCH (12:46)
--- NOTE | 2025-04-22 14:25 | Pharmacy Report ---
Pharmacy Glycemic Short Note 2 - Date of Service April 22, 2025 - Glycemic Short BSG Results (Last 24 hours): 04/21/25 04/21/25 04/22/25 16:33 20:24 02:44 Glucose POC Glucose 77 284 H 362 H* 04/22/25 04/22/25 04/22/25 07:06 07:59 11:10 Glucose 278 H POC Glucose 307 H* 347 H* OUTPATIENT ANTIDIABETIC REGIMEN: * Lantus 5 units HS, Lispro 2 units TIDM + SSI * A1c 6.2% 03/16/25 ASSESSMENT: * patient admitted with Afib with RVR, CHF exacerbation * Parameters initially loose for BSGs borderline low, however trended upward. Patient did receive 1x dose of methylprednisolone yesterday * Novolog parameters initiated close to weight stress of 1. * 5 unit IV dose given with lunch for persistently elevated BSG. carb ratio tightened. will monitor PLAN FOR INPATIENT GLYCEMIC CONTROL: * Hold outpatient oral diabetes medications * Basal insulin * Lantus 0/8 units HS * Bolus insulin * NovoLog per scale ACHS or Q6hrs while NPO * Goal Range: Low 110 mg/dL - High 150 mg/dL * Correction Factor: 40 mg/dL/unit * Nutritional / Prandial insulin per carb ratio of 1 unit per 10 grams CHO consumed
[2025-04-22] MEDS: FUROSEMIDE INJ 20 MG/2 ML VIAL IV SCH (17:04)
[2025-04-22] MEDS ORDERED: Nursing to Pharmacy Communication SCH (22:15)
[2025-04-23 06:23] LABS: Hematocrit (blood only) 27.2 % (42.0-52.0); Hemoglobin 8.7 g/dl (14.0-18.0); Mean Corpuscular Hemoglobin 28.5 pg (25.0-34.0); Mean Corpuscular Volume 89.2 fL (80.0-100.0); Mean Platelet Volume 11.1 fL (9.4-12.4); Platelet Count 238 K/uL (130-400); RDW Standard Deviation 52.1 fL (36.4-46.3); Red Blood Count 3.05 M/uL (4.70-6.10); White Blood Count 17.55 K/ul (4.8-10.8)
[2025-04-23] MEDS ORDERED: Nursing to Pharmacy Communication SCH (06:45)
[2025-04-23 06:46] LABS: BUN Creatinine Ratio 26.4 (10-20); Calcium 7.9 mg/dl (8.6-10.3); Creatinine Clr Calc Pharmacy 22.3 ml/min; Potassium 3.6 mmol/L (3.5-5.1)
[2025-04-23] MEDS: LANTUS PER UNIT CHARGE SC SCH (08:25)
--- NOTE | 2025-04-23 10:01 | Hospitalist Progress Note ---
Date of Service April 23, 2025 Assessment & Plan (1) Acute CHF: Plan: -CXR showing Pulmonary edema with possible PNA at lung bases -lasix 40mg IV BID -echo shows EF 55% -cardiology consult appreciated -on rocephin for UTI, PNA coverage -duonebs prn (2) Acute UTI: Plan: -chronic indwelling Hanna -rocephin -f/u urine C&S (3) Atrial fibrillation with rapid ventricular response: Plan: -HR in 130s -elevated troponin 192 likely rate related -metoprolol given in ER HR still elevated -cardizem drip started -eliquis -metoprolol increased to 25 mg po QID (4) Acute kidney injury superimposed on CKD: Plan: cr. 2.8, previous 2.2 requiring lasix diuresis for CHF Chronic Hanna with UTI Nephrology consulted (5) Diabetes mellitus, type II: Plan: -RISS -lantus (6) BPH (benign prostatic hyperplasia): Plan: -tamsulonsin Admission and Anticipated Discharge Date Admission Date: April 21, 2025 Subjective No events overnight. Pt breathing well on RA. Review of Systems Review of Systems: CONST: Negative for fever, body aches and chills. HENT: Negative for neck pain/stiffness, headache, congestion, sore throat, swelling. EYES: Negative for discharge/pain or vision changes. RESP: Negative for cough/hemoptysis and shortness of breath. CV: Negative chest pain, difficulty breathing, palpitations. ABD: Negative pain, nausea, vomiting. : Negative increase frequency, dysuria, blood in urine or stool. MUSC: Negative for muscle aches, edema. SKIN: Negative rash, lesions/sores. NEURO: Negative headache, dizziness, weakness. Physical Exam Physical Exam: GENERAL APPEARANCE mild distress EYES lids/conjunctiva normal. EARS/NOSE/THROAT Mucous membranes moist, nares normal, lips/teeth normal uvula midline without oral pharyngeal erythema, exudate or swelling TMs normal bilaterally. No lymphangitis/lymphedema. HEAD/NECK Bipap in place, no facial trauma, neck is supple. RESPIRATORY B/L ronchi CARDIAC Regular rate and rhythm, no edema. ABDOMINAL Soft, ND/NT. No evidence of fluid wave. No pulsatile masses on exam, rebound tenderness, Gracia sign or pain over Mcburney's point. MUSCLES/EXTREMITIES No abnormal range of motion, no swelling. Right leg BKA SKIN Warm, pink and dry. No rashes, dermatoses, petechiae or lesions. NEUROLOGICAL Speech is clear and appropriate. Normal level of consciousness. Gait and coordination are normal. 5/5 strength in all extremities. PSYCH Normal mood and affect. Judgement/competence is appropriate Results & Data Results & Data Vital Signs (Past 12 Hours) Vital Signs Temp Pulse Pulse Resp BP Pulse Ox O2 Del Method 04/23/25 07:53 36.5 C 69 18 127/67 92 Room Air 04/23/25 03:31 36.8 C 67 17 141/55 H 91 Room Air 04/23/25 00:37 88 04/22/25 23:27 132 H 20 96 04/22/25 23:23 36.9 C 117 H 19 118/72 97 BiPAP 04/22/25 22:30 BiPAP 04/22/25 22:00 131 H FiO2 04/23/25 07:53 04/23/25 03:31 04/23/25 00:37 04/22/25 23:27 21 04/22/25 23:23 04/22/25 22:30 04/22/25 22:00 PG Care Time/CCT Total # of Minutes Spent Total Time Spent with Patient: Total time spent is greater than 50% in coordination of care (as documented) at patient's floor/unit and/or counseling patient: Coding Level of Care Code 65586 SUB INP/OBS CARE 2/35MIN Diagnoses Acute CHF I50.9 Acute UTI N39.0 Atrial fibrillation with rapid ventricular response I48.91 Acute kidney injury superimposed on CKD N17.9; N18.9 Type 2 diabetes mellitus with foot ulcer, with long-term current use of insulin E11.621; L97.509; Z79.4 Diabetes mellitus terminal carman insulin use: with detention use Diabetes mellitus complication status: with skin complications Diabetes mellitus complication detail: with foot ulcer BPH (benign prostatic hyperplasia) N40.0 (5) Diabetes mellitus, type II Diabetes mellitus detention insulin use: with terminal carman use Diabetes mellitus complication status: with skin complications Diabetes mellitus complication detail: with foot ulcer Qualified Code(s): E11.621 - Type 2 diabetes mellitus with foot ulcer; L97.509 - Non-pressure chronic ulcer of other part of unspecified foot with unspecified severity; Z79.4 - group home (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
--- NOTE | 2025-04-23 12:06 | Cardiology Progress Note ---
Date of Service April 23, 2025 Assessment & Plan (1) Atrial fibrillation with rapid ventricular response: (2) Acute heart failure with preserved ejection fraction: (3) Aortic stenosis: Plan: -suspected severe (4) Acute kidney injury superimposed on CKD: (5) Acute UTI: Plan 04/22/[address] Alegria Assessment: 79 year old medically complex male currently residing at [facility] s/p right BKA admitted for acute respiratory failure, CHF, and A-fib with RVR. labs, urinalysis, cultures and imaging suggestive of likely acute infectious process both UTI and possible pneumonia. patient with modest volume overload and A-fib with RVR. Cardiology consulted for further assessment and recommendations. Urine culture = Proteus mirabilis 1/2 blood cultures from 04/21/25: with gram negative bacilli blood PCR + for Enterobacterales and Proteus Plan: 1. atrial fibrillation with RVR -Continue Eliquis -Wean diltiazem -increase metoprolol tartrate to 25 mg QID. 2. Acute respiratory failure with hypoxia / Acute CHF (HFpEF) -mild / relatively flat troponin elevation, likely due to myocardial strain / tachycardia. -Repeat EKG -Continue furosemide 20 mg IV BID , creatinine pending. 4. 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: -Significant volume overload, will need cautiously diuresed with close monitoring of renal function. -Results of BMP pending 5. Acute UTI -Continue ceftriaxone IV 6. Aortic Stenosis: -suspected severe base on appearance of valve. Valvular gradients likely underestimate degree of stenosis. -Pt to establish with valve clinic. Need to resolve infectious issues prior to consideration of TAVR. 04/23/25: Afib: Patient spontaneously converted overnight to NSR with PAC -stop IV diltiazem -continue oral metoprolol 25 QID for now, likely transition to BID dosing prior to discharge for compliance reasons -continue Eliquis 5 mg BID. Given his CKD - eventually he will require lower dose eliquis 2.5 mg BID when he is 80. -repeat ekg this morning Chronic respiratory failure/HFpEF -Furosemide was increased to 40 mg BID yesterday. -good urine output yesterday and today -renal function stable with creatine of 2.8 -supplement potassium 20 meq today - Potassium 3.6 -continue diuresis today -volume status improving UTI -continue antibiotics for + urine culture and + blood culture on 04/21 Severe - will need valve clinic evaluation once his infections improve. Case discussed with Dr. Alegria. I spent a total of 35 minutes on the date of service in preparation, delivery, and documentation of the care provided to this patient, excluding any time spent in the performance of separately billed services. Shelley Russell PA-C Department of Cardiology, [facility] This chart was completed in part utilizing Speech Voice Recognition Software. Grammatical errors, random word insertions, pronoun errors, and incomplete sentences are an occasional consequence of this system due to software limitations, ambient noise, and hardware issues. Any formal questions or concern s about the content, text, or information contained within the body of this dictation should be directly addressed to the provider for clarification. Admission and Anticipated Discharge Date Admission Date: April 21, 2025 Supervising Physician Co-Signing Physician Notes Attending attestation: Case reviewed with the advanced practitioner. I have personally performed a history and physical examination on the patient. I have reviewed the advanced practitioner's documentation on the date of service referenced in note, and I agree with, and take responsibility for the plan of care. Patient now in sinus rhythm having converted from atrial fibrillation on 04/23/2025 at 1:32 AM. Frequent premature atrial contractions noted. * Continue furosemide 40 mg IV twice daily, Rocephin. I spent a total of 20 minutes coordinating, documenting, and providing care for this patient excluding time spent in the performance of separately billed services or time spent by another provider. Cyrus Alegria, DO Subjective Patient resting in bed. Feeling "good". Reports SOB has improved. No chest pain. converted to NSR overnight. Good urine outputs overnight also noted. Review of Systems Review of Systems: All systems reviewed & are unremarkable except as noted in HPI & below Physical Exam Physical Exam: Vital Signs Temp Pulse Pulse Resp BP Pulse Ox O2 Del Method 04/23/25 10:29 36.7 C 75 18 124/74 96 Room Air 04/23/25 07:53 36.5 C 69 18 127/67 92 Room Air 04/23/25 03:31 36.8 C 67 17 141/55 H 91 Room Air 04/23/25 00:37 88 04/22/25 23:27 132 H 20 96 04/22/25 23:23 36.9 C 117 H 19 118/72 97 BiPAP 04/22/25 22:30 BiPAP 04/22/25 22:00 131 H 04/22/25 20:04 36.8 C 69 18 118/66 96 Room Air 04/22/25 16:37 36.6 C 85 18 115/73 97 Room Air 04/22/25 14:00 83 Constitutional: well developed, + ill appearing, + frail appearing and + edematous; no acute distress ENMT: Ears: + hearing impairment (does well with amplifier) Neck: trachea midline, no thyromegaly normal visual inspection and trachea midline Respiratory: no respiratory distress, no labored breathing and no cough Auscultation: + diminished lung sounds (mildly decreased breath sounds in the bases bilaterally ) and + crackles (bilateral bases ); no rales, no rhonchi and no wheezes Cardiovascular: Rate/Rhythm: regular rate (with ectopy) Heart Sounds: normal S1, normal S2 and + murmur (2/6 SM heard best at RSB ) Vessels: dorsalis pedis pulses present (left foot only. Right leg amputation); no JVD Extremities: + edema (1+ bilateral LE edema ) Gastrointestinal (Abdomen): normal bowel sounds, soft, nontender, no hepatosplenomegaly Skin: no rashes, warm and dry (PALE) Psychiatric: Orientation: alert and oriented x 3 Results & Data Vital Signs (Past 12 Hours) Vital Signs Temp Pulse Resp BP Pulse Ox O2 Del Method 04/23/25 10:29 36.7 C 75 18 124/74 96 Room Air 04/23/25 07:53 36.5 C 69 18 127/67 92 Room Air 04/23/25 03:31 36.8 C 67 17 141/55 H 91 Room Air 04/23/25 00:37 88 Laboratory Results CBC 04/23/25 Range/Units 05:43 WBC 17.55 H (4.8-10.8) K/ul RBC 3.05 L (4.70-6.10) M/uL Hgb 8.7 L (14.0-18.0) g/dl Hct 27.2 L (42.0-52.0) % Plt Count 238 (130-400) K/uL Comprehensive Metabolic Panel 04/23/25 Range/Units 05:43 Sodium 142 (136-145) mmol/L Potassium 3.6 (3.5-5.1) mmol/L Chloride 104 (98-107) mmol/L Carbon Dioxide 29 (21-32) mmol/L BUN 75 H (6-23) mg/dl Creatinine 2.84 H (0.6-1.4) mg/dl Glucose 186 H (70-99(Fasting)) mg/dl Calcium 7.9 L (8.6-10.3) mg/dl Intake and Output 04/22/25 04/23/25 04/23/25 22:59 06:59 14:59 Intake Total 111.500 / 1077.000 83.667 / 1077.000 142.25 / 142.25 Output Total 550 / 3000 1150 / 3000 Balance -438.500 / -1923.000 -1066.333 / -1923.000 141.25 / 141.25 Intake: IV 111.500 / 257.000 83.667 / 257.000 17.25 / 17.25 cefTRIAXone SODIUM 2,000 mg In 50 / 50 50 ml @ 100 mls/hr IV Q24H [facility] Rx#:[id number] dilTIAZem HCL 125 mg In 61.500 / 207.000 83.667 / 207.000 17.25 / 17.25 Dextrose 5% 100 ml @ 5 MG/HR 5 mls/hr IV .Q24H [facility] Rx#: [id number] Oral 125 / 125 Output: Urine Amount (Catheter) 550 / 3000 1150 / 3000 Hanna/Indwelling 550 / 3000 1150 / 3000 # Bowel Movements Other: Weight 87.8 kg Weight Measurement Method Built in [facility] Diagnostic Findings Telemetry reviewed: Overnight around 1:30 AM, patient converted from afib to NSR. Currently NSR with frequent PACs and short runs of probable atrial tach l asting 3-5 beats. Medications Administered Current Inpatient Medications Acetaminophen (Acetaminophen 325 Mg Tab) 650 mg PO Q6H PRN PRN Reason: Fever greater than 100/Pain Stop: 05/21/25 13:45 Albuterol (Albut/Ipratrop 3mg/0.5mg Neb 3 Ml Vial) 3 ml NEB Q6R PRN; Protocol PRN Reason: Shortness Of Breath Stop: 05/21/25 13:52 Last Admin: 04/22/25 11:21 Dose: 3 ml Amitriptyline HCl (Amitriptyline Hcl 10 Mg Tab) 30 mg PO HS DARIN Stop: 05/21/25 20:59 Last Admin: 04/22/25 22:02 Dose: 30 mg Apixaban (Apixaban 5 Mg Tablet) 5 mg PO BID [facility] Stop: 05/21/25 20:59 Last Admin: 04/23/25 08:19 Dose: 5 mg Atorvastatin Calcium (Atorvastatin 40 Mg Tab) 40 mg PO HS [facility] Stop: 05/21/25 20:59 Last Admin: 04/22/25 22:01 Dose: 40 mg Azithromycin (Azithromycin 250 Mg Tab) 500 mg PO QAM [facility] Stop: 04/27/25 08:59 Dextrose (Dextrose 50% 50 Ml Syringe) 25 - 50 ml IV UD PRN; Protocol PRN Reason: Hypoglycemia Protocol Stop: 05/21/25 16:29 Docusate Sodium (Docusate Sodium 100 Mg Cap) 100 mg PO AMHS [facility] Stop: 05/21/25 20:59 Last Admin: 04/23/25 08:21 Dose: Not Given Finasteride (Finasteride 5 Mg Tab) 5 mg PO QAM [facility] Stop: 05/22/25 08:59 Last Admin: 04/23/25 08:20 Dose: 5 mg Furosemide (Furosemide Inj 20 Mg/2 Ml Vial) 40 mg IV BID17 [facility] Stop: 05/22/25 16:59 Last Admin: 04/23/25 08:21 Dose: 40 mg Glucagon (Glucagon For Inj 1 Mg Vial) 1 mg SQ UD PRN; Protocol PRN Reason: Hypoglycemia Protocol Stop: 05/21/25 16:29 Glucose (Glucose 40% Gel 15 Gm Tube) 15 - 30 gm PO UD PRN; Protocol PRN Reason: Hypoglycemia Protocol Stop: 05/21/25 16:29 Glucose (Glucose 10 Tab/Tube) 4 - 8 tab PO UD PRN; Protocol PRN Reason: Hypoglycemia Protocol Stop: 05/21/25 16:29 Ceftriaxone Sodium (Rocephin) 2,000 mg in 50 mls @ 100 mls/hr IV Q24H [facility]; Protocol Stop: 04/26/25 17:59 Last Infusion: 04/22/25 18:02 Dose: Infused Insulin Aspart (Insulin Aspart Per Unit Charge) 0 units SC ACHS [facility] Stop: 05/21/25 16:29 Last Admin: 04/23/25 08:22 Dose: 8 units Insulin Glargine (Lantus Per Unit Charge) 8 units SC QA [facility] Stop: 05/23/25 08:59 Last Admin: 04/23/25 08:25 Dose: 8 units Metoprolol Tartrate (Metoprolol Tartrate 25 Mg Tab) 25 mg PO QID [facility] Stop: 05/22/25 12:59 Last Admin: 04/23/25 08:18 Dose: 25 mg Miscellaneous (Carbohydrates For Hypoglycemia ) 15 - 30 gm PO UD PRN PRN Reason: Hypoglycemia Treatment Stop: 05/21/25 16:29 Miscellaneous Information (Pharmacy Glycemic Mgmt Consult) 1 each N/A UD PRN; Protocol PRN Reason: Consult Stop: 05/21/25 13:48 Oxycodone HCl (Oxycodone Hcl Ir 5 Mg Tab (Immediate Release)) 5 mg PO Q6H PRN PRN Reason: Pain not relieved by tylenol Stop: 05/05/25 13:45 Pantoprazole Sodium (Pantoprazole 40 Mg Tab) 40 mg PO BID [facility] Stop: 05/21/25 20:59 Last Admin: 04/23/25 08:19 Dose: 40 mg Pregabalin (Pregabalin 75 Mg Cap) 75 mg PO AMHS [facility] Stop: 05/21/25 20:59 Last Admin: 04/23/25 08:17 Dose: 75 mg Sodium Biphosphate/Sodium Phosphate (Sod Phosphate/Sod Biphosphate Enema 132 Ml Btl) 118 ml ND DAILY PRN PRN Reason: Constipation Stop: 05/21/25 13:45 Tamsulosin HCl (Tamsulosin Hcl 0.4 Mg Cap) 0.4 mg PO HS [facility] Stop: 05/21/25 20:59 Last Admin: 04/22/25 23:07 Dose: 0.4 mg
[2025-04-23] MEDS: POTASSIUM CHLORIDE CRTAB 20 MEQ TABCR PO ONE (13:01)
--- NOTE | 2025-04-23 14:20 | Nephrology Progress Note ---
Date of Service April 23, 2025 Assessment & Plan Admission and Anticipated Discharge Date Admission Date: April 21, 2025 Subjective Assessment & Plan (1) Acute kidney injury superimposed on CKD: Current creat of 2.7 is slightly higher than few days ago when it was 2.2 but still within the range for last 2 months. back in had creat of 1.7 but lately running in the low to mid 2's. May not improve that much. No need for further workup as current creat similar for last 2 months Continue 40 iv bid at least and also some oral diuretics post discharge (2) Acute heart failure with preserved ejection fraction: reviewed cardiology note and in agreement. Now Urine culture = Proteus mirabilis and 1/2 blood cultures from 04/21/25: with gram negative bacilli blood PCR + for Enterobacteria and Proteus. cards feel he has severe Aortic stenosis and needs TAVR after infection issue resolved. Given his extensive CKD 4, cardiac issues he would benefit with some Diuretics daily even after discharge (3) Acute respiratory failure with hypoxia: Related with Acute CHF and Pneumonia. reviewed CXR independently and does have CHF S--No new issues. Blood C/s did come +ve. made about 3000 ml urine. ROS--see HPI. poor historian. 12 Systems reviewed and negative Physical Exam Constitutional: + ill + frail no acute distress at rest Neck: Supple. No JVD Respiratory: diminished lung sounds , b/l basal crackles Cardiovascular: + irregularly irregular Heart Sounds: + Systolic murmur ,1+ bilateral LE edema ) Gastrointestinal (Abdomen): Soft, nontender Musculoskeletal: s/p right below the knee amputation Genitourinary: Hanna catheter in place draining clear , yellow urine Results & Data Vital Signs (Past 12 Hours) Vital Signs Temp Pulse Resp BP Pulse Ox O2 Del Method 04/23/25 10:29 36.7 C 75 18 124/74 96 Room Air 04/23/25 07:53 36.5 C 69 18 127/67 92 Room Air 04/23/25 07:35 Room Air 04/23/25 03:31 36.8 C 67 17 141/55 H 91 Room Air
[2025-04-23] MEDS ORDERED: LANTUS PER UNIT CHARGE SC SCH (21:00)
[2025-04-24 06:33] LABS: Hematocrit (blood only) 26.7 % (42.0-52.0); Hemoglobin 8.8 g/dl (14.0-18.0); Mean Corpuscular Hemoglobin 28.9 pg (25.0-34.0); Mean Corpuscular Volume 87.5 fL (80.0-100.0); Mean Platelet Volume 11.1 fL (9.4-12.4); Platelet Count 240 K/uL (130-400); RDW Coefficient of Variation 15.6 % (11.5-14.5); RDW Standard Deviation 50.1 fL (36.4-46.3); Red Blood Count 3.05 M/uL (4.70-6.10); White Blood Count 14.38 K/ul (4.8-10.8)
[2025-04-24 06:57] LABS: BUN Creatinine Ratio 23.9 (10-20); Calcium 8.3 mg/dl (8.6-10.3); Creatinine Clr Calc Pharmacy 21.9 ml/min; Potassium 3.4 mmol/L (3.5-5.1)
--- NOTE | 2025-04-24 08:16 | Nephrology Progress Note ---
Date of Service April 24, 2025 Assessment & Plan (1) Acute kidney injury superimposed on CKD: Plan: Current creat of 2.9 is slightly higher than few days ago when it was 2.2 but still within the range for last 2 months (CKD4) and plateaud last 72 hrs.. May not improve that much. No need for further workup continue Diuresis >> 7.8L negative on the admission >cont 40 lasix IV bid -will need lasix after d/c -has 2 x 10 mEq IV K running >> added 20 mEq bid po as well starting this am -daily bmp Care coordinated w/ Dr Donn larose rneal u/s, med changes, continued diuresis via TText; we are in agreement. (2) Pyelonephritis: Plan: -suggest renal u/s given + blood/urine cxs would not expect this even in setting chronic yee noted >> on rocephin -WBC down to 14K today, a good sign (3) Acute heart failure with preserved ejection fraction: Plan: reviewed cardiology note and in agreement. w/c bound at baseline so standing wts not feasible Given his extensive CKD 4, cardiac issues he would benefit with some Diuretics daily even after discharge (4) Acute respiratory failure with hypoxia: Plan: Related with Acute CHF and Pneumonia. reviewed CXR independently and does have CHF Admission and Anticipated Discharge Date Admission Date: April 21, 2025 Subjective no interval events. denies new pain or sob. eating well Review of Systems 2 Review of Systems: All systems reviewed & are unremarkable except as noted in Subjective Physical Exam 2 Constitutional: well developed and well nourished Eyes: EOM intact bilaterally ENMT: Mouth: + muffled voice and + dry oral mucous membranes Respiratory: normal respiratory effort Auscultation: + diminished lung sounds Cardiovascular: Rate/Rhythm: regular rate and regular rhythm Heart Sounds: + murmur Extremities: no edema R BKA Gastrointestinal (Abdomen): Inspection/Auscultation: normal bowel sounds P ercussion/Palpation: abdomen soft; abdomen nontender Musculoskeletal: Extremities: strength 5/5 throughout Skin: no rashes, warm and dry Neurologic: griffith, fluent speech, no tremor Results & Data Vital Signs (Past 12 Hours) Vital Signs Temp Pulse Pulse Resp BP Pulse Ox O2 Del Method 04/24/25 07:45 73 18 135/70 98 Oxymask 04/24/25 07:38 69 04/24/25 03:24 36.5 C 67 16 136/69 95 Room Air 04/24/25 02:33 74 19 98 04/23/25 23:41 36.9 C 60 17 138/75 96 BiPAP 04/23/25 23:06 75 19 100 04/23/25 23:04 79 04/23/25 21:00 Room Air 04/23/25 20:14 36.7 C 68 17 135/73 94 Room Air O2 Flow Rate FiO2 04/24/25 07:45 3 04/24/25 07:38 04/24/25 03:24 04/24/25 02:33 35 04/23/25 23:41 04/23/25 23:06 35 04/23/25 23:04 04/23/25 21:00 04/23/25 20:14 Laboratory Results 04/24/25 06:19 04/24/25 06:19 Diagnostic Findings renal u/s 07/2024 symmetric kidneys w/o obstruction or stone
--- NOTE | 2025-04-24 08:28 | Cardiology Progress Note ---
Date of Service April 24, 2025 Assessment & Plan (1) Atrial fibrillation with rapid ventricular response: (2) Acute heart failure with preserved ejection fraction: (3) Acute kidney injury superimposed on CKD: (4) Acute UTI: (5) Aortic stenosis: Plan Assessment: 79 year old male with complex medical history including CKD and s/p right BKA; admitted for acute respiratory failure, CHF, and A-fib with RVR. Cardiology was consulted for further assessment and recommendations. Afib: -Patient with no acute cardiac complaints. -Telemetry reviewed: Patient remains in sinus rhythm with PACs, HR 70s. (Spontaneously converted overnight 04/22 to 04/23/25). -Continue metoprolol tartrate 25 mg PO QID. -Continue Eliquis 5 mg BID. -H/o CKD; Cr 2.9 today. Age 80 in Aug 2025. Consider dose reduction of Eliquis from 5 mg BID to 2.5 mg BID at that time. Chronic respiratory failure, HFpEF: -Continue diuresis with Furosemide at 40 mg BID. -Monitor kidney function. Currently stable with Cr 2.9 today, 2.8 04/23/25. -K 3.4 today. Continue to supplement as needed. Currently on 20 mEq BID PO per nephrology. -Volume status is improving. 5.4 L urine output in last 24 hrs. UTI: -Chronic indwelling catheter -positive urine culture and blood culture on 04/21/25 (Enterobacterales, Proteus). Continue antibiotics. Severe aortic stenosis: -Recommend outpatient evaluation. Case discussed with slope hoist operator Dr. Oreilly. Further recommendations pending his evaluation and assessment I spent a total of 35 minutes on the date of service in preparation, delivery, and documentation of the care provided to this patient, excluding any time spent in the performance of separately billed services. Annabel Benitez, PAJoanneC Department of Cardiology, [facility] This chart was completed in part utilizing Speech Voice Recognition Software. Grammatical errors, random word insertions, pronoun errors, and incomplete sentences are an occasional consequence of this system due to software limitations, ambient noise, and hardware issues. Any formal questions or concerns about the content, text, or information contained within the body of this dictation should be directly addressed to the provider for clarification. Admission and Anticipated Discharge Date Admission Date: April 21, 2025 Supervising Physician Co-Signing Physician Notes I have personally performed a history and physical examination on the patient. I have reviewed the advance practitioner's documentation, and I agree with, and take responsibility for the plan of care. 79-year-old patient seen and examined at bedside. Admitted with urosepsis, heart failure with preserved ejection fraction and possible severe aortic valve stenosis. Fluid balance -4.7 L with clinical improvement. Continue IV diuresis in collaboration with nephrology. Monitor fluid balance, daily weight, GFR, and electrolytes. Outpatient cardiology evaluation regarding aortic valve stenosis. Cardiology will continue to follow during hospitalization. I spent a total of 25 minutes on the date of service in preparation, delivery, and documentation of the care provided to this patient, excluding any time spent in the performance of separately billed services. Carlos Oreilly DO [facility] Subjective Patient seen and examined today for follow-up. He offers no acute cardiac complaints. Resting comfortably in bed on 2L O2 via nasal cannula. States he is chronically slightly SOB but does not require O2 at home. States he is doing well, denies chest pain, palpitations, headache, dizziness, blurry vision, abdominal pain, or any other issues. Labs, diagnostics, vitals, and documentation reviewed. Telemetry reviewed: Sinus rhythm with PACs, HR 70s Review of Systems Review of Systems: All systems reviewed & are unremarkable except as noted in HPI & below Poor historian. Physical Exam Constitutional: well developed; no acute distress Severely hard of hearing. Uses amplification device. Eyes: PERRL, conjunctivae normal, anicteric sclerae Neck: normal visual inspection and trachea midline Respiratory: normal respiratory effort, lungs clear to auscultation Cardiovascular: Rate/Rhythm: + irregularly irregular Heart Sounds: + murmur (Severe noted) Extremities: no edema Musculoskeletal: Extremities: + amputation noted (R BKA. Scar with bandage noted. ) Skin: no rashes, warm and dry Psychiatric: A+Ox3, euthymic affect Results & Data Vital Signs (Past 12 Hours) Vital Signs Temp Pulse Pulse Resp BP Pulse Ox O2 Del Method 04/24/25 08:11 36.4 C L 04/24/25 07:45 73 18 135/70 98 Oxymask 04/24/25 07:38 69 04/24/25 03:24 36.5 C 67 16 136/69 95 Room Air 04/24/25 02:33 74 19 98 04/23/25 23:41 36.9 C 60 17 138/75 96 BiPAP 04/23/25 23:06 75 19 100 04/23/25 23:04 79 04/23/25 21:00 Room Air O2 Flow Rate FiO2 04/24/25 08:11 04/24/25 07:45 3 04/24/25 07:38 04/24/25 03:24 04/24/25 02:33 35 04/23/25 23:41 04/23/25 23:06 35 04/23/25 23:04 04/23/25 21:00 Laboratory Results CBC 04/24/25 Range/Units 06:19 WBC 14.38 H (4.8-10.8) K/ul RBC 3.05 L (4.70-6.10) M/uL Hgb 8.8 L (14.0-18.0) g/dl Hct 26.7 L (42.0-52.0) % Plt Count 240 (130-400) K/uL Comprehensive Metabolic Panel 04/24/25 Range/Units 06:19 Sodium 141 (136-145) mmol/L Potassium 3.4 L (3.5-5.1) mmol/L Chloride 100 (98-107) mmol/L Carbon Dioxide 32 (21-32) mmol/L BUN 69 H (6-23) mg/dl Creatinine 2.89 H (0.6-1.4) mg/dl Glucose 90 (70-99(Fasting)) mg/dl Calcium 8.3 L (8.6-10.3) mg/dl Intake and Output 04/23/25 04/24/25 04/24/25 22:59 06:59 14:59 Intake Total 50 / 832.25 Output Total 2450 / 5401 1450 / 5401 Balance -2400 / -4568.75 -1450 / -4568.75 Intake: IV 50 / 67.25 cefTRIAXone SODIUM 2,000 mg In 50 / 50 50 ml @ 100 mls/hr IV Q24H [facility] Rx#:[id number] Output: Urine Amount (Catheter) 2450 / 5400 1450 / 5400 Hanna/Indwelling 2450 / 5400 1450 / 5400 Other: Weight 87.5 kg Weight Measurement Method Built in Bedscale Medications Administered Current Inpatient Medications Acetaminophen (Acetaminophen 325 Mg Tab) 650 mg PO Q6H PRN PRN Reason: Fever greater than 100/Pain Stop: 05/21/25 13:45 Albuterol (Albut/Ipratrop 3mg/0.5mg Neb 3 Ml Vial) 3 ml NEB Q6R PRN; Protocol PRN Reason: Shortness Of Breath Stop: 05/21/25 13:52 Last Admin: 04/22/25 11:21 Dose: 3 ml Amitriptyline HCl (Amitriptyline Hcl 10 Mg Tab) 30 mg PO HS [facility] Stop: 05/21/25 20:59 Last Admin: 04/23/25 21:03 Dose: 30 mg Apixaban (Apixaban 5 Mg Tablet) 5 mg PO BID [facility] Stop: 05/21/25 20:59 Last Admin: 04/23/25 21:02 Dose: 5 mg Atorvastatin Calcium (Atorvastatin 40 Mg Tab) 40 mg PO HS [facility] Stop: 05/21/25 20:59 Last Admin: 04/23/25 21:03 Dose: 40 mg Azithromycin (Azithromycin 250 Mg Tab) 500 mg PO QAM [facility] Stop: 04/27/25 08:59 Dextrose (Dextrose 50% 50 Ml Syringe) 25 - 50 ml IV UD PRN; Protocol PRN Reason: Hypoglycemia Protocol Stop: 05/21/25 16:29 Docusate Sodium (Docusate Sodium 100 Mg Cap) 100 mg PO AMHS [facility] Stop: 05/21/25 20:59 Last Admin: 04/23/25 21:02 Dose: 100 mg Finasteride (Finasteride 5 Mg Tab) 5 mg PO QAM [facility] Stop: 05/22/25 08:59 Last Admin: 04/23/25 08:20 Dose: 5 mg Furosemide (Furosemide Inj 20 Mg/2 Ml Vial) 40 mg IV BID17 [facility] Stop: 05/22/25 16:59 Last Admin: 04/23/25 17:49 Dose: 40 mg Glucagon (Glucagon For Inj 1 Mg Vial) 1 mg SQ UD PRN; Protocol PRN Reason: Hypoglycemia Protocol Stop: 05/21/25 16:29 Glucose (Glucose 40% Gel 15 Gm Tube) 15 - 30 gm PO UD PRN; Protocol PRN Reason: Hypoglycemia Protocol Stop: 05/21/25 16:29 Glucose (Glucose 10 Tab/Tube) 4 - 8 tab PO UD PRN; Protocol PRN Reason: Hypoglycemia Protocol Stop: 05/21/25 16:29 Ceftriaxone Sodium (Rocephin) 2,000 mg in 50 mls @ 100 mls/hr IV Q24H [facility]; Protocol Stop: 04/26/25 17:59 Last Infusion: 04/23/25 18:21 Dose: Infused Potassium Chloride (K Forrest / Wtr) 10 meq in 100 mls @ 100 mls/hr IV Q1H [facility] Stop: 04/24/25 09:44 Insulin Aspart (Insulin Aspart Per Unit Charge) 0 units SC ACHS [facility] Stop: 05/21/25 16:29 Last Admin: 04/23/25 21:03 Dose: 1 units Insulin Glargine (Lantus Per Unit Charge) 8 units SC QAM [facility] Stop: 05/23/25 08:59 Last Admin: 04/23/25 08:25 Dose: 8 units Metoprolol Tartrate (Metoprolol Tartrate 25 Mg Tab) 25 mg PO QID [facility] Stop: 05/22/25 12:59 Last Admin: 04/23/25 21:02 Dose: 25 mg Miscellaneous (Carbohydrates For Hypoglycemia ) 15 - 30 gm PO UD PRN PRN Reason: Hypoglycemia Treatment Stop: 05/21/25 16:29 Miscellaneous Information (Pharmacy Glycemic Mgmt Consult) 1 each N/A UD PRN; Protocol PRN Reason: Consult Stop: 05/21/25 13:48 Oxycodone HCl (Oxycodone Hcl Ir 5 Mg Tab (Immediate Release)) 5 mg PO Q6H PRN PRN Reason: Pain not relieved by tylenol Stop: 05/05/25 13:45 Pantoprazole Sodium (Pantoprazole 40 Mg Tab) 40 mg PO BID [facility] Stop: 05/21/25 20:59 Last Admin: 04/23/25 21:02 Dose: 40 mg Potassium Chloride (Potassium Chloride Crtab 20 Meq Tabcr) 20 meq PO BID [facility] Stop: 05/24/25 08:59 Pregabalin (Pregabalin 75 Mg Cap) 75 mg PO AMHS [facility] Stop: 05/21/25 20:59 Last Admin: 04/23/25 21:02 Dose: 75 mg Sodium Biphosphate/Sodium Phosphate (Sod Phosphate/Sod Biphosphate Enema 132 Ml Btl) [address] DAILY PRN PRN Reason: Constipation Stop: 05/21/25 13:45 Tamsulosin HCl (Tamsulosin Hcl 0.4 Mg Cap) 0.4 mg PO HS [facility] Stop: 05/21/25 20:59 Last Admin: 04/23/25 21:02 Dose: 0.4 mg
[2025-04-24] MEDS: POTASSIUM CHLORIDE CRTAB 20 MEQ TABCR PO SCH (08:56)
[2025-04-24] MEDS: POTASSIUM CHLORIDE / WTR 10 MEQ/100 ML PLCT IV SCH (08:56)
--- NOTE | 2025-04-24 09:22 | Hospitalist Progress Note ---
Date of Service April 24, 2025 Assessment & Plan (1) Acute CHF: Plan: -CXR showing Pulmonary edema with possible PNA at lung bases -lasix 40mg IV BID -echo shows EF 55% -cardiology consult appreciated -on rocephin for UTI, PNA coverage -duonebs prn (2) Acute UTI: Plan: -chronic indwelling Hanna -rocephin -f/u urine C&S (3) Atrial fibrillation with rapid ventricular response: Plan: -HR now controlled -elevated troponin 192 likely rate related -metoprolol given in ER HR still elevated -cardizem drip started -eliquis -metoprolol increased to 25 mg po QID (4) Acute kidney injury superimposed on CKD: Plan: cr. 2.8, previous 2.2 requiring lasix diuresis for CHF Chronic Hanna with UTI Nephrology consulted (5) Diabetes mellitus, type II: Plan: -RISS -lantus (6) BPH (benign prostatic hyperplasia): Plan: -tamsulonsin Admission and Anticipated Discharge Date Admission Date: April 21, 2025 Subjective No events overnight. Pt resting comfortably in bed. Review of Systems Review of Systems: CONST: Negative for fever, body aches and chills. HENT: Negative for neck pain/stiffness, headache, congestion, sore throat, swelling. EYES: Negative for discharge/pain or vision changes. RESP: Negative for cough/hemoptysis and shortness of breath. CV: Negative chest pain, difficulty breathing, palpitations. ABD: Negative pain, nausea, vomiting. : Negative increase frequency, dysuria, blood in urine or stool. MUSC: Negative for muscle aches, edema. SKIN: Negative rash, lesions/sores. NEURO: Negative headache, dizziness, weakness. Physical Exam Physical Exam: GENERAL APPEARANCE mild distress EYES lids/conjunctiva normal. EARS/NOSE/THROAT Mucous membranes moist, nares normal, lips/teeth normal uvula midline without oral pharyngeal erythema, exudate or swelling TMs normal bilaterally. No lymphangitis/lymphedema. HEAD/NECK Bipap in place, no facial trauma, neck is supple. RESPIRATORY B/L ronchi CARDIAC Regular rate and rhythm, no edema. ABDOMINAL Soft, ND/NT. No evidence of fluid wave. No pulsatile masses on exam, rebound tenderness, Gracia sign or pain over Mcburney's point. MUSCLES/EXTREMITIES No abnormal range of motion, no swelling. Right leg BKA SKIN Warm, pink and dry. No rashes, dermatoses, petechiae or lesions. NEUROLOGICAL Speech is clear and appropriate. Normal level of consciousness. Gait and coordination are normal. 5/5 strength in all extremities. PSYCH Normal mood and affect. Judgement/competence is appropriate Results & Data Results & Data Vital Signs (Past 12 Hours) Vital Signs Temp Pulse Pulse Resp BP Pulse Ox O2 Del Method 04/24/25 08:11 36.4 C L 04/24/25 07:45 73 18 135/70 98 Oxymask 04/24/25 07:38 69 04/24/25 03:24 36.5 C 67 16 136/69 95 Room Air 04/24/25 02:33 74 19 98 04/23/25 23:41 36.9 C 60 17 138/75 96 BiPAP 04/23/25 23:06 75 19 100 04/23/25 23:04 79 O2 Flow Rate FiO2 04/24/25 08:11 04/24/25 07:45 3 04/24/25 07:38 04/24/25 03:24 04/24/25 02:33 35 04/23/25 23:41 04/23/25 23:06 35 04/23/25 23:04 PG Care Time/CCT Total # of Minutes Spent Total Time Spent with Patient: Total time spent is greater than 50% in coordination of care (as documented) at patient's floor/unit and/or counseling patient: Coding Level of Care Code 72835 SUB INP/OBS CARE 2/35MIN Diagnoses Acute CHF I50.9 Acute UTI N39.0 Atrial fibrillation with rapid ventricular response I48.91 Acute kidney injury superimposed on CKD N17.9; N18.9 Type 2 diabetes mellitus with foot ulcer, with long-term current use of insulin E11.621; L97.509; Z79.4 Diabetes mellitus custodial insulin use: with terminal block assembler use Diabetes mellitus complication status: with skin complications Diabetes mellitus complication detail: with foot ulcer BPH (benign prostatic hyperplasia) N40.0 (5) Diabetes mellitus, type II Diabetes mellitus terminal block assembler insulin use: with custodial use Diabetes mellitus complication status: with skin complications Diabetes mellitus complication detail: with foot ulcer Qualified Code(s): E11.621 - Type 2 diabetes mellitus with foot ulcer; L97.509 - Non-pressure chronic ulcer of other part of unspecified foot with unspecified severity; Z79.4 - FPC (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
--- NOTE | 2025-04-25 02:53 | Ultrasound Report ---
EXAM: US renal/blad retro comp CLINICAL HISTORY: CESAR TECHNIQUE: A renal ultrasound was performed using grayscale imaging. COMPARISON: Comparison is made with 07/22/2024 US FINDINGS: Right Kidney: The right kidney measures 9.0 x 4.1 x 4.7 cm. No cyst, hydronephrosis, calculi, or masses were identified. Renal parenchymal echogenicity is normal. Cortical thickness: Within normal. Renal pelvis within normal. Normal color Doppler vascularity Left Kidney: The left kidney measures 10.3 x 4.2 x 5.1 cm. Limited views. No cyst, hydronephrosis, calculi, or masses were identified. Renal parenchymal echogenicity is normal. Cortical thickness: Within normal. Renal pelvis within normal. Normal color Doppler vascularity Urinary bladder: The urinary bladder is partially collapsed. A Hanna balloon within the bladder is noted. Bladder wall thickening is present. No ureteral jets are seen at the time of exam. IMPRESSION: 1. No hydronephrosis. No renal calculi identified. 2. Partially collapsed bladder containing a Hanna's catheter. Bladder wall thickening, similar to prior US. Electronically signed by Zafar Giang 04-25-2025 02:52 AM
[2025-04-25 06:07] LABS: Hematocrit (blood only) 27.9 % (42.0-52.0); Mean Corpuscular Hgb Conc 32.3 g/dL (32.0-36.0); Mean Corpuscular Volume 86.9 fL (80.0-100.0); Mean Platelet Volume 11.2 fL (9.4-12.4); Platelet Count 260 K/uL (130-400); RDW Coefficient of Variation 15.4 % (11.5-14.5); RDW Standard Deviation 48.9 fL (36.4-46.3); Red Blood Count 3.21 M/uL (4.70-6.10)
[2025-04-25 06:25] LABS: Calcium 8.5 mg/dl (8.6-10.3); Potassium 3.5 mmol/L (3.5-5.1)
[2025-04-25 06:30] LABS: BUN Creatinine Ratio 20.4 (10-20); Creatinine Clr Calc Pharmacy 16.3 ml/min
--- NOTE | 2025-04-25 07:54 | Nephrology Progress Note ---
Date of Service April 25, 2025 Assessment & Plan (1) Acute kidney injury superimposed on CKD: Plan: Current creat of 3.4 abruptly bumped up from mid-high 2's range where creat has been for last 2 months (CKD4) and after plateau'd x 72 hrs. renal u/s 04/24 unremarkable/unchanged from prior No need for further workup continue Diuresis >> 9L negative on the admission >>on RA at time of my eval >>>>held lasix for today -will need lasix after d/c >>>>gave extra 40 meQ po K today in addition to standing 20 mEq bid dose started yesterday -daily bmp >>>will also recheck bmp this afternoon to ensure PM K dose needed >>>ordered CXR today which shows improved HF but still moderate congestion Care coordinated w/ Dr Pop re med changes, f/u lab, CXR findings via TText; we are in agreement. (2) Pyelonephritis: Plan: -+ blood/urine cxs would not expect this even in setting chronic yee noted >> on rocephin. renal u/s unremarkable/ no pyelo/abscess/new structural concern -WBC further improved to 12K today, a good sign (3) Acute heart failure with preserved ejection fraction: Plan: reviewed cardiology note and in agreement. w/c bound at baseline so standing wts not feasible Given his extensive CKD 4, cardiac issues he would benefit with some Diuretics daily even after discharge (4) Acute respiratory failure with hypoxia: Plan: Related with Acute CHF and Pneumonia. reviewed CXR independently and does have CHF Admission and Anticipated Discharge Date Admission Date: April 21, 2025 Subjective seen on mid AM rounds; no c/o; no decreased po intake or f/c or edema or sob or rash. tired, resting a lot Review of Systems 2 Review of Systems: All systems reviewed & are unremarkable except as noted in Subjective Physical Exam 2 Constitutional: well developed and well nourished Eyes: EOM intact bilaterally ENMT: Mouth: + muffled voice and + dry oral mucous membranes Respiratory: normal respiratory effort Auscultation: + diminished lung sounds Cardiovascular: Rate/Rhythm: regular rate and regular rhythm Heart Sounds: + murmur Extremities: no edema Gastrointestinal (Abdomen): Inspection/Auscultation: normal bowel sounds P ercussion/Palpation: abdomen soft; abdomen nontender Musculoskeletal: Extremities: strength 5/5 throughout Skin: no rashes, warm and dry Results & Data Vital Signs (Past 12 Hours) Vital Signs Temp Pulse Pulse Resp BP BP Pulse Ox 04/25/25 07:27 36.5 C 61 20 123/78 98 04/25/25 03:18 36.8 C 76 16 117/68 91 04/24/25 23:38 74 04/24/25 23:06 36.5 C 75 18 123/65 92 O2 Del Method O2 Flow Rate 04/25/25 07:27 Nasal Cannula 2 04/25/25 03:18 Room Air 04/24/25 23:38 04/24/25 23:06 Room Air Laboratory Results 04/25/25 05:26 04/25/25 05:26
[2025-04-25] MEDS: POTASSIUM CHLORIDE CRTAB 20 MEQ TABCR PO ONE (08:27)
--- NOTE | 2025-04-25 08:39 | XRay Report ---
XR chest 1V portable CLINICAL HISTORY: f/u HF COMPARISON STUDY: 04/21/2025 FINDINGS: Stable mild cardiomegaly with moderate vascular congestion. There is mild reticular opacity at the left lung base, improved. No other consolidation or pleural effusion. No pneumothorax. IMPRESSION: 1. Mild CHF, improved. 2. Mild residual opacity left lung base, improved. ACT 112: Negative or not required by law. Electronically signed by: Del Ghosh M.D. 04/25/2025 8:38 AM
--- NOTE | 2025-04-25 10:17 | Hospitalist Progress Note ---
Date of Service April 25, 2025 Assessment & Plan (1) Acute CHF: Plan: -CXR showing Pulmonary edema with possible PNA at lung bases -lasix 40mg IV BID -echo shows EF 55% -cardiology consult appreciated -on rocephin for UTI, PNA coverage -duonebs prn (2) Acute UTI: Plan: -chronic indwelling Hanna -rocephin -f/u urine C&S -blood cultures + for proteus (3) Atrial fibrillation with rapid ventricular response: Plan: -HR now controlled -elevated troponin 192 likely rate related -metoprolol given in ER HR still elevated -cardizem drip started -eliquis -metoprolol increased to 25 mg po QID (4) Acute kidney injury superimposed on CKD: Plan: cr. 3.4, previous 2.2 requiring lasix diuresis for CHF Chronic Hanna with UTI Nephrology consulted renal US shows no hydronephrosis (5) Diabetes mellitus, type II: Plan: -RISS -lantus (6) BPH (benign prostatic hyperplasia): Plan: -tamsulonsin Admission and Anticipated Discharge Date Admission Date: April 21, 2025 Subjective No events overnight. Pt resting comfortably in bed. Review of Systems Review of Systems: CONST: Negative for fever, body aches and chills. HENT: Negative for neck pain/stiffness, headache, congestion, sore throat, swelling. EYES: Negative for discharge/pain or vision changes. RESP: Negative for cough/hemoptysis and shortness of breath. CV: Negative chest pain, difficulty breathing, palpitations. ABD: Negative pain, nausea, vomiting. : Negative increase frequency, dysuria, blood in urine or stool. MUSC: Negative for muscle aches, edema. SKIN: Negative rash, lesions/sores. NEURO: Negative headache, dizziness, weakness. Physical Exam Physical Exam: GENERAL APPEARANCE mild distress EYES lids/conjunctiva normal. EARS/NOSE/THROAT Mucous membranes moist, nares normal, lips/teeth normal uvula midline without oral pharyngeal erythema, exudate or swelling TMs normal bilaterally. No lymphangitis/lymphedema. HEAD/NECK Bipap in place, no facial trauma, neck is supple. RESPIRATORY B/L ronchi CARDIAC Regular rate and rhythm, no edema. ABDOMINAL Soft, ND/NT. No evidence of fluid wave. No pulsatile masses on exam, rebound tenderness, Gracia sign or pain over Mcburney's point. MUSCLES/EXTREMITIES No abnormal range of motion, no swelling. Right leg BKA SKIN Warm, pink and dry. No rashes, dermatoses, petechiae or lesions. NEUROLOGICAL Speech is clear and appropriate. Normal level of consciousness. Gait and coordination are normal. 5/5 strength in all extremities. PSYCH Normal mood and affect. Judgement/competence is appropriate Results & Data Results & Data Vital Signs (Past 12 Hours) Vital Signs Temp Pulse Pulse Resp BP BP Pulse Ox 04/25/25 08:32 04/25/25 07:27 36.5 C 61 20 123/78 98 04/25/25 05:47 67 04/25/25 03:18 36.8 C 76 16 117/68 91 04/24/25 23:38 74 04/24/25 23:06 36.5 C 75 18 123/65 92 O2 Del Method O2 Flow Rate 04/25/25 08:32 Room Air 93 04/25/25 07:27 Nasal Cannula 2 04/25/25 05:47 04/25/25 03:18 Room Air 04/24/25 23:38 04/24/25 23:06 Room Air PG Care Time/CCT Total # of Minutes Spent Total Time Spent with Patient: Total time spent is greater than 50% in coordination of care (as documented) at patient's floor/unit and/or counseling patient: Coding Level of Care Code 49488 SUB INP/OBS CARE 2/35MIN Diagnoses Acute CHF I50.9 Acute UTI N39.0 Atrial fibrillation with rapid ventricular response I48.91 Acute kidney injury superimposed on CKD N17.9; N18.9 Type 2 diabetes mellitus with foot ulcer, with long-term current use of insulin E11.621; L97.509; Z79.4 Diabetes mellitus alf insulin use: with manager long term care use Diabetes mellitus complication status: with skin complications Diabetes mellitus complication detail: with foot ulcer BPH (benign prostatic hyperplasia) N40.0 (5) Diabetes mellitus, type II Diabetes mellitus alf insulin use: with alf use Diabetes mellitus complication status: with skin complications Diabetes mellitus complication detail: with foot ulcer Qualified Code(s): E11.621 - Type 2 diabetes mellitus with foot ulcer; L97.509 - Non-pressure chronic ulcer of other part of unspecified foot with unspecified severity; Z79.4 - care home (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
--- NOTE | 2025-04-25 11:22 | Cardiology Progress Note ---
Date of Service April 25, 2025 Assessment & Plan (1) Atrial fibrillation with rapid ventricular response: (2) Acute heart failure with preserved ejection fraction: (3) Acute kidney injury superimposed on CKD: (4) Acute UTI: (5) Aortic stenosis: Plan 04/25/25 Assessment: 79 year old male with complex medical history including CKD and s/p right BKA; admitted for acute respiratory failure, CHF, and A-fib with RVR. Afib: -Patient with no acute cardiac complaints. -Telemetry reviewed: Patient remains in sinus rhythm with PACs, HR 70s. (Spontaneously converted overnight 04/22 to 04/23/25). -Transition to metoprolol succinate 50 mg BID today -Continue Eliquis 5 mg BID. -H/o CKD; Cr 3.4 today. Age 80 in Aug 2025. Consider dose reduction of Eliquis from 5 mg BID to 2.5 mg BID at that time. Chronic respiratory failure, HFpEF: -worsening creatinine noted today at 3.4. Diuretics held. -nephrology following -Negative 9 Liters output since admission. UTI: -Chronic indwelling catheter -positive urine culture and blood culture on 04/21/25 (Enterobacterales, Proteus). Continue antibiotics. Severe aortic stenosis: -Recommend outpatient evaluation. F/U with Valve clinic Case discussed with Dr. Oreilly I spent a total of 30 minutes on the date of service in preparation, delivery, and documentation of the care provided to this patient, excluding any time spent in the performance of separately billed services. Shelley Russell PA-C Department of Cardiology, [facility] This chart was completed in part utilizing Speech Voice Recognition Software. Grammatical errors, random word insertions, pronoun errors, and incomplete sentences are an occasional consequence of this system due to software limitations, ambient noise, and hardware issues. Any formal questions or concerns about the content, text, or information contained within the body of this dictation should be directly addressed to the provider for clarification. Admission and Anticipated Discharge Date Admission Date: April 21, 2025 Supervising Physician Co-Signing Physician Notes I have personally performed a history and physical examination on the patient. I have reviewed the advance practitioner's documentation, and I agree with, and take responsibility for the plan of care. 79-year-old patient seen and examined at bedside. Admitted with urosepsis, heart failure with preserved ejection fraction and possible severe aortic valve stenosis. Fluid balance negative 9L since admission, -1.3 L overnight. Creatinine trending upward. Diuretic therapy placed on hold today. Monitor fluid balance, daily weight, GFR, and electrolytes. Will need oral diuretic therapy at discharge. Outpatient cardiology evaluation regarding aortic valve stenosis. I spent a total of 25 minutes on the date of service in preparation, delivery, and documentation of the care provided to this patient, excluding any time spent in the performance of separately billed services. Carlos Oreilly DO, [facility] Subjective Patient sleeping soundly. No events overnight. Creatinine higher this morning. D iuertics on hold. Review of systems not performed. Review of Systems Review of Systems: Other (unobtained due to sleeping and hard of hearing) Physical Exam Physical Exam: Vital Signs Temp Pulse Pulse Resp BP Pulse Ox O2 Del Method 04/23/25 10:29 36.7 C 75 18 124/74 96 Room Air 04/23/25 07:53 36.5 C 69 18 127/67 92 Room Air 04/23/25 03:31 36.8 C 67 17 141/55 H 91 Room Air 04/23/25 00:37 88 04/22/25 23:27 132 H 20 96 04/22/25 23:23 36.9 C 117 H 19 118/72 97 BiPAP 04/22/25 22:30 BiPAP 04/22/25 22:00 131 H 04/22/25 20:04 36.8 C 69 18 118/66 96 Room Air 04/22/25 16:37 36.6 C 85 18 115/73 97 Room Air 04/22/25 14:00 83 Constitutional: well developed, + ill appearing, + frail appearing and + edematous; no acute distress Neck: trachea midline, no thyromegaly normal visual inspection and trachea midline Respiratory: no respiratory distress, no labored breathing and no cough Auscultation: + diminished lung sounds (mildly decreased breath sounds in the bases bilaterally ) and + crackles (bilateral bases ); no rales, no rhonchi and no wheezes Cardiovascular: Rate/Rhythm: regular rate (with ectopy) Heart Sounds: normal S1, normal S2 and + murmur (2/6 SM heard best at RSB ) Vessels: dorsalis pedis pulses present (left foot only. Right leg amputation); no JVD Extremities: + edema (1+ bilateral LE edema ) Gastrointestinal (Abdomen): normal bowel sounds, soft, nontender, no hepatosplenomegaly Skin: no rashes, warm and dry (PALE) Results & Data Vital Signs (Past 12 Hours) Vital Signs Temp Pulse Pulse Resp BP BP Pulse Ox 04/25/25 08:32 04/25/25 07:27 36.5 C 61 20 123/78 98 04/25/25 05:47 67 04/25/25 03:18 36.8 C 76 16 117/68 91 04/24/25 23:38 74 O2 Del Method O2 Flow Rate 04/25/25 08:32 Room Air 93 04/25/25 07:27 Nasal Cannula 2 04/25/25 05:47 04/25/25 03:18 Room Air 04/24/25 23:38 Laboratory Results CBC 04/25/25 Range/Units 05:26 WBC 12.10 H (4.8-10.8) K/ul RBC 3.21 L (4.70-6.10) M/uL Hgb 9.0 L (14.0-18.0) g/dl Hct 27.9 L (42.0-52.0) % Plt Count 260 (130-400) K/uL Comprehensive Metabolic Panel 04/25/25 Range/Units 05:26 Sodium 140 (136-145) mmol/L Potassium 3.5 (3.5-5.1) mmol/L Chloride 97 L (98-107) mmol/L Carbon Dioxide 33 H (21-32) mmol/L BUN 70 H (6-23) mg/dl Creatinine 3.43 H D (0.6-1.4) mg/dl Glucose 181 H (70-99(Fasting)) mg/dl Calcium 8.5 L (8.6-10.3) mg/dl Intake and Output 04/24/25 04/25/25 04/25/25 22:59 06:59 14:59 Intake Total 50 / 1310 100 / 1310 Output Total 1004 / 2504 500 / 2504 Balance -954 / -1194 -400 / -1194 Intake: IV 50 / 250 cefTRIAXone SODIUM 2,000 mg In 50 / 50 50 ml @ 100 mls/hr IV Q24H [facility] Rx#:[id number] Oral 100 / 1060 Output: Urine Amount (Catheter) 1000 / 2500 500 / 2500 Hanna/Indwelling 1000 / 2500 500 / 2500 # Bowel Movements 4 / 4 Other: Weight 77.4 kg Weight Measurement Method Built in [facility] Diagnostic Findings Telemetry reviewed: AFib in the 70's; frequent PAC's. runs of atrial tach Medications Administered Current Inpatient Medications Acetaminophen (Acetaminophen 325 Mg Tab) 650 mg PO Q6H PRN PRN Reason: Fever greater than 100/Pain Stop: 05/21/25 13:45 Albuterol (Albut/Ipratrop 3mg/0.5mg Neb 3 Ml Vial) 3 ml NEB Q6R PRN; Protocol PRN Reason: Shortness Of Breath Stop: 05/21/25 13:52 Last Admin: 04/22/25 11:21 Dose: 3 ml Amitriptyline HCl (Amitriptyline Hcl 10 Mg Tab) 30 mg PO HS DARIN Stop: 05/21/25 20:59 Last Admin: 04/24/25 20:23 Dose: 30 mg Apixaban (Apixaban 5 Mg Tablet) 5 mg PO BID DARIN Stop: 05/21/25 20:59 Last Admin: 04/25/25 08:17 Dose: 5 mg Atorvastatin Calcium (Atorvastatin 40 Mg Tab) 40 mg PO HS DARIN Stop: 05/21/25 20:59 Last Admin: 04/24/25 20:24 Dose: 40 mg Azithromycin (Azithromycin 250 Mg Tab) 500 mg PO QAM DARIN Stop: 04/27/25 08:59 Dextrose (Dextrose 50% 50 Ml Syringe) 25 - 50 ml IV UD PRN; Protocol PRN Reason: Hypoglycemia Protocol Stop: 05/21/25 16:29 Docusate Sodium (Docusate Sodium 100 Mg Cap) 100 mg PO AMHS DARIN Stop: 05/21/25 20:59 Last Admin: 04/25/25 08:28 Dose: 100 mg Finasteride (Finasteride 5 Mg Tab) 5 mg PO QAM DARIN Stop: 05/22/25 08:59 Last Admin: 04/25/25 08:16 Dose: 5 mg Furosemide (Furosemide Inj 20 Mg/2 Ml Vial) 40 mg IV BID17 DARIN Stop: 05/22/25 16:59 Last Admin: 04/24/25 17:37 Dose: 40 mg Glucagon (Glucagon For Inj 1 Mg Vial) 1 mg SQ UD PRN; Protocol PRN Reason: Hypoglycemia Protocol Stop: 05/21/25 16:29 Glucose (Glucose 40% Gel 15 Gm Tube) 15 - 30 gm PO UD PRN; Protocol PRN Reason: Hypoglycemia Protocol Stop: 05/21/25 16:29 Glucose (Glucose 10 Tab/Tube) 4 - 8 tab PO UD PRN; Protocol PRN Reason: Hypoglycemia Protocol Stop: 05/21/25 16:29 Ceftriaxone Sodium (Rocephin) 2,000 mg in 50 mls @ 100 mls/hr IV Q24H DARIN; Protocol Stop: 04/26/25 17:59 Last Infusion: 04/24/25 20:19 Dose: Infused Insulin Aspart (Insulin Aspart Per Unit Charge) 0 units SC ACHS [facility] Stop: 05/21/25 16:29 Last Admin: 04/25/25 08:18 Dose: 7 units Insulin Glargine (Lantus Per Unit Charge) 8 units SC QAM [facility] Stop: 05/23/25 08:59 Last Admin: 04/25/25 08:18 Dose: 8 units Metoprolol Tartrate (Metoprolol Tartrate 25 Mg Tab) 25 mg PO QID [facility] Stop: 05/22/25 12:59 Last Admin: 04/25/25 08:17 Dose: 25 mg Miscellaneous (Carbohydrates For Hypoglycemia ) 15 - 30 gm PO UD PRN PRN Reason: Hypoglycemia Treatment Stop: 05/21/25 16:29 Miscellaneous Information (Pharmacy Glycemic Mgmt Consult) 1 each N/A UD PRN; Protocol PRN Reason: Consult Stop: 05/21/25 13:48 Oxycodone HCl (Oxycodone Hcl Ir 5 Mg Tab (Immediate Release)) 5 mg PO Q6H PRN PRN Reason: Pain not relieved by tylenol Stop: 05/05/25 13:45 Pantoprazole Sodium (Pantoprazole 40 Mg Tab) 40 mg PO BID [facility] Stop: 05/21/25 20:59 Last Admin: 04/25/25 08:17 Dose: 40 mg Potassium Chloride (Potassium Chloride Crtab 20 Meq Tabcr) 20 meq PO BID [facility] Stop: 05/24/25 08:59 Last Admin: 04/25/25 08:28 Dose: 20 meq Pregabalin (Pregabalin 75 Mg Cap) 75 mg PO AMHS [facility] Stop: 05/21/25 20:59 Last Admin: 04/25/25 08:28 Dose: 75 mg Sodium Biphosphate/Sodium Phosphate (Sod Phosphate/Sod Biphosphate Enema 132 Ml Btl) 118 ml MS DAILY PRN PRN Reason: Constipation Stop: 05/21/25 13:45 Tamsulosin HCl (Tamsulosin Hcl 0.4 Mg Cap) 0.4 mg PO HS [facility] Stop: 05/21/25 20:59 Last Admin: 04/24/25 20:24 Dose: 0.4 mg
--- NOTE | 2025-04-25 12:11 | Pharmacy Report ---
Pharmacy Glycemic Short Note 2 - Date of Service April 25, 2025 - Glycemic Short BSG Results (Last 24 hours): 04/24/25 04/24/25 04/25/25 15:58 20:30 05:26 Glucose 181 H POC Glucose 167 H 156 H 04/25/25 04/25/25 07:25 11:36 Glucose POC Glucose 189 H 145 H OUTPATIENT ANTIDIABETIC REGIMEN: * Lantus 5 units HS, Lispro 2 units TIDM + SSI * A1c 6.2% 03/16/25 ASSESSMENT: 04/25 * BSGs 84-13-324-156 mg/dL yesterday with 8 units of lantus and 14 units of bolus insulin * Fasting somewhat elevated this morning-189 mg/dL, but given previous will continue with 8 units today, SCr is trending upward with lasix use * Novolog was loosened with dinner yesterday as AM/lunch BSG < 100 mg/dL (to 1 unit/15 grams CHO), tightened again slightly this morning to 1 unit per 12 units of CHO as dinner/HS were >150 mg/dL yesterday * Continues with T2DM diet. 04/22 * patient admitted with Afib with RVR, CHF exacerbation * Parameters initially loose for BSGs borderline low, however trended upward. Patient did receive 1x dose of methylprednisolone yesterday * Novolog parameters initiated close to weight stress of 1. * 5 unit IV dose given with lunch for persistently elevated BSG. carb ratio tightened. will monitor PLAN FOR INPATIENT GLYCEMIC CONTROL: * Hold outpatient oral diabetes medications * Basal insulin * Lantus 8 units qAM * Bolus insulin * NovoLog per scale ACHS or Q6hrs while NPO * Goal Range: Low 110 mg/dL - High 150 mg/dL * Correction Factor: 35 mg/dL/unit * Nutritional / Prandial insulin per carb ratio of 1 unit per 12 grams CHO consumed
--- NOTE | 2025-04-25 13:43 | Electrocardiogram Report ---
Test Reason : Blood Pressure : */* mmHG Vent. Rate : 87 BPM Atrial Rate : * BPM P-R Int : * ms QRS Dur : 130 ms QT Int : 374 ms P-R-T Axes : * -48 154 degrees QTcB Int : 450 ms Atrial fibrillation Right bundle branch block Left anterior fascicular block Bifascicular block Minimal voltage criteria for LVH, may be normal variant ( R in aVL ) Possible Anteroseptal infarct (cited on or before 21-Apr-2025) T wave abnormality, consider lateral ischemia Abnormal ECG When compared with ECG of 21-Apr-2025 11:40, Vent. rate has decreased by 54 bpm Confirmed by Chema Landa ([id number]) on 04/25/2025 1:43:11 PM Referred By: [facility] Confirmed By: Chema Landa
[2025-04-25 16:25] LABS: BUN Creatinine Ratio 22.7 (10-20); Calcium 8.6 mg/dl (8.6-10.3); Creatinine Clr Calc Pharmacy 17.2 ml/min; Potassium 4.3 mmol/L (3.5-5.1)
--- NOTE | 2025-04-25 16:31 | Electrocardiogram Report ---
Test Reason : Blood Pressure : */* mmHG Vent. Rate : 80 BPM Atrial Rate : * BPM P-R Int : * ms QRS Dur : 126 ms QT Int : 390 ms P-R-T Axes : * -30 158 degrees QTcB Int : 449 ms Sinus rhythm Premature atrial complexes Left axis deviation Right bundle branch block Minimal voltage criteria for LVH, may be normal variant ( R in aVL ) Septal infarct (cited on or before 21-Apr-2025) Abnormal ECG When compared with ECG of 22-Apr-2025 10:07, (unconfirmed) Sinus rhythm has replaced Atrial fibrillation Confirmed by Chema Landa ([id number]) on 04/25/2025 4:30:48 PM Referred By: [facility] Confirmed By: Chema Landa
--- NOTE | 2025-04-25 17:00 | Electrocardiogram Report ---
Test Reason : Blood Pressure : */* mmHG Vent. Rate : 73 BPM Atrial Rate : 73 BPM P-R Int : 156 ms QRS Dur : 122 ms QT Int : 452 ms P-R-T Axes : 31 -64 179 degrees QTcB Int : 497 ms Sinus rhythm with marked sinus arrhythmia Premature atrial complexes Right bundle branch block Left anterior fascicular block Bifascicular block Minimal voltage criteria for LVH, may be normal variant ( R in aVL ) Abnormal ECG When compared with ECG of 23-Apr-2025 13:43, (unconfirmed) No significant change Confirmed by Chema Landa ([id number]) on 04/25/2025 4:59:41 PM Referred By: [facility] [place] Confirmed By: Chema Landa
[2025-04-26 06:16] LABS: Hematocrit (blood only) 27.1 % (42.0-52.0); Hemoglobin 8.6 g/dl (14.0-18.0); Mean Corpuscular Hemoglobin 28.2 pg (25.0-34.0); Mean Corpuscular Hgb Conc 31.7 g/dL (32.0-36.0); Mean Corpuscular Volume 88.9 fL (80.0-100.0); Mean Platelet Volume 10.9 fL (9.4-12.4); Platelet Count 233 K/uL (130-400); RDW Coefficient of Variation 15.5 % (11.5-14.5); RDW Standard Deviation 50.4 fL (36.4-46.3); Red Blood Count 3.05 M/uL (4.70-6.10); White Blood Count 11.34 K/ul (4.8-10.8)
[2025-04-26 06:36] LABS: BUN Creatinine Ratio 20.5 (10-20); Calcium 8.3 mg/dl (8.6-10.3); Creatinine Clr Calc Pharmacy 16.2 ml/min
--- NOTE | 2025-04-26 07:42 | Nephrology Progress Note ---
Date of Service April 26, 2025 Assessment & Plan (1) Acute kidney injury superimposed on CKD: Plan: Current creat of 3.4 x 48 hrs after abruptly bumped up 04/25 from mid-high 2's range where creat has been for last 2 months (CKD4) and after plateau'd x 72 hrs. renal u/s 04/24 unremarkable/unchanged from prior No need for further workup continue Diuresis when feasible >> remains 9L negative on the admission (net even past 24hrs w/o diuretic meds) -remains on RA >>>>cont to hold lasix for today -will need lasix after d/c >for now continue standing 20 mEq bid dose K -daily bmp >04/25 CXR shows improved HF but still moderate congestion (2) Pyelonephritis: Plan: -+ blood/urine cxs would not expect this even in setting chronic yee noted >> on rocephin. renal u/s unremarkable/ no pyelo/abscess/new structural concern -WBC further improved to 11K today, a good sign (3) Acute heart failure with preserved ejection fraction: Plan: reviewed cardiology note and in agreement. w/c bound at baseline so standing wts not feasible Given his extensive CKD 4, cardiac issues he would benefit with some Diuretics daily even after discharge Admission and Anticipated Discharge Date Admission Date: April 21, 2025 Subjective diuretics remain on hold d/t worse creatinine. not adherent w/ cpap; no interval acute clinical events. denies sob worsening, no n/v, no edema bothering him. Review of Systems 2 Review of Systems: All systems reviewed & are unremarkable except as noted in Subjective Physical Exam 2 Constitutional: well developed and well nourished Eyes: EOM intact bilaterally ENMT: Mouth: + muffled voice and + dry oral mucous membranes Respiratory: normal respiratory effort Auscultation: + diminished lung sounds Cardiovascular: Rate/Rhythm: regular rate and regular rhythm Heart Sounds: + murmur Extremities: no edema Gastrointestinal (Abdomen): Inspection/Auscultation: normal bowel sounds P ercussion/Palpation: abdomen soft; abdomen nontender Musculoskeletal: Extremities: strength 5/5 throughout Skin: no rashes, warm and dry Results & Data Vital Signs (Past 12 Hours) Vital Signs Temp Pulse Pulse Resp BP Pulse Ox O2 Del Method 04/26/25 03:20 36.6 C 70 18 130/68 92 Room Air 04/26/25 00:28 68 17 99 04/25/25 23:26 36.6 C 68 16 129/61 97 Room Air 04/25/25 20:00 Nasal Cannula 04/25/25 19:54 36.5 C 70 18 126/71 96 Room Air O2 Flow Rate FiO2 04/26/25 03:20 04/26/25 00:28 35 04/25/25 23:26 04/25/25 20:00 2 04/25/25 19:54 Laboratory Results 04/26/25 05:50 04/26/25 05:50
--- NOTE | 2025-04-26 08:28 | Cardiology Progress Note ---
Date of Service April 26, 2025 Assessment & Plan (1) Atrial fibrillation with rapid ventricular response: (2) Acute heart failure with preserved ejection fraction: (3) Acute kidney injury superimposed on CKD: (4) Acute UTI: (5) Aortic stenosis: Plan Assessment: 79 year old male with complex medical history including CKD and s/p right BKA; admitted with urosepsis, HFpEF, A-fib with RVR, and possible severe aortic valve stenosis. Cardiology services requested for assessment and recommendations. Afib: -Patient with no acute cardiac complaints. -Telemetry reviewed: Patient remains in sinus rhythm with PACs, HR 70s. (Spontaneously converted overnight 04/22 to 04/23/25). -EKG 04/25/25: SR with marked sinus arrhythmia. HR 73 bpm, QTc 497 ms. PACs, RBB, LAFB, bifascicular block. -Change Metoprolol tartrate 25 mg QID to Metoprolol succinate 50 mg BID. -Continue Eliquis 2.5 mg BID. Chronic respiratory failure, HFpEF: -Creatinine upward trend noted, today at 3.46. Diuretics held as of 04/25/25. Continue to hold. -Nephrology following. -Fluid balance negative 9 liters since admission; 1.3 L in the last 24 hrs. -Monitor fluid balance, daily weight, GFR, electrolytes. Replete electrolytes as indicated. UTI: -Chronic indwelling catheter -Positive urine culture and blood culture on 04/21/25 (Enterobacterales, Proteus). Continue antibiotics. Severe aortic stenosis: -Recommend outpatient evaluation. Follow up with valve clinic Case discussed with mortgage protection sales Dr. Oreilly. Further recommendations pending his evaluation and assessment. I spent a total of 35 minutes on the date of service in preparation, delivery, and documentation of the care provided to this patient, excluding any time spent in the performance of separately billed services. Annabel Benitez, PAJoanneC Department of Cardiology, [facility] This chart was completed in part utilizing Speech Voice Recognition Software. Grammatical errors, random word insertions, pronoun errors, and incomplete sentences are an occasional consequence of this system due to software limitations, ambient noise, and hardware issues. Any formal questions or concerns about the content, text, or information contained within the body of this dictation should be directly addressed to the provider for clarification. Admission and Anticipated Discharge Date Admission Date: April 21, 2025 Supervising Physician Co-Signing Physician Notes I have personally performed a history and physical examination on the patient. I have reviewed the advance practitioner's documentation, and I agree with, and take responsibility for the plan of care. 79-year-old patient seen and examined at bedside. Admitted with urosepsis, heart failure with preserved ejection fraction, paroxysmal atrial fibrillation, and possible severe aortic valve stenosis. Sinus rhythm with PACs on telemetry. Fluid balance negative 8.7L since admission, however, positive 280mL over night. Creatinine unchanged today at 3.46. Recommendations: * Continue to hold diuretic therapy. * Monitor fluid balance, daily weight, GFR, and electrolytes. Will need oral diuretic therapy at discharge. * Transition metoprolol to tartrate to succinate formulation 50 mg twice daily. * Apixaban reduced to 2.5 mg twice daily by internal medicine. * Continue atorvastatin as ordered. * Outpatient cardiology evaluation regarding aortic valve stenosis. I spent a total of 25 minutes on the date of service in preparation, delivery, and documentation of the care provided to this patient, excluding any time spent in the performance of separately billed services. Carlos Oreilly DO, [facility] Subjective Patient seen and examined today for follow-up. He is resting in bed, breathing comfortably on room air. Offers no acute cardiac complaints. Denies chest pain, palpitations. States he is somewhat short of breath at baseline but no longer requires O2 via nasal cannula. States he still has plenty of urine output even while Lasix is on hold. Labs, diagnostics, vitals, and documentation reviewed. Telemetry reviewed: Sinus rhythm with PACs, rate 70s. No acute events overnight. Review of Systems Review of Systems: All systems reviewed & are unremarkable except as noted in HPI & below Physical Exam Physical Exam: Patient hard of hearing. Constitutional: well developed; no acute distress Eyes: PERRL, conjunctivae normal, anicteric sclerae Neck: normal visual inspection Respiratory: normal respiratory effort, lungs clear to auscultation Cardiovascular: Rate/Rhythm: regular rhythm Heart Sounds: + murmur (Severe noted) Vessels: no JVD Extremities: no edema Musculoskeletal: Extremities: + amputation noted (R BKA. Scar with tegaderm noted.) Skin: no rashes, warm and dry Psychiatric: A+Ox3, euthymic affect Results & Data Vital Signs (Past 12 Hours) Vital Signs Temp Pulse Pulse Resp BP Pulse Ox O2 Del Method 04/26/25 08:12 36.5 C 66 20 132/71 93 Room Air 04/26/25 03:20 36.6 C 70 18 130/68 92 Room Air 04/26/25 00:28 68 17 99 04/25/25 23:26 36.6 C 68 16 129/61 97 Room Air FiO2 04/26/25 08:12 04/26/25 03:20 04/26/25 00:28 35 04/25/25 23:26 Laboratory Results CBC 04/26/25 Range/Units 05:50 WBC 11.34 H (4.8-10.8) K/ul RBC 3.05 L (4.70-6.10) M/uL Hgb 8.6 L (14.0-18.0) g/dl Hct 27.1 L (42.0-52.0) % Plt Count 233 (130-400) K/uL Comprehensive Metabolic Panel 04/25/25 04/26/25 Range/Units 15:41 05:50 Sodium 139 141 (136-145) mmol/L Potassium 4.3 D 4.0 (3.5-5.1) mmol/L Chloride 98 101 (98-107) mmol/L Carbon Dioxide 34 H 34 H (21-32) mmol/L BUN 74 H 71 H (6-23) mg/dl Creatinine 3.26 H 3.46 H (0.6-1.4) mg/dl Glucose 99 138 H (70-99(Fasting)) mg/dl Calcium 8.6 8.3 L (8.6-10.3) mg/dl Intake and Output 04/25/25 04/26/25 04/26/25 22:59 06:59 14:59 Intake Total 1110 / 1260 150 / 1260 320 / 320 Output Total 700 / 1300 600 / 1300 Balance 410 / -40 -450 / -40 320 / 320 Intake: IV 50 / 50 [id number] SODIUM 2,000 mg In 50 / 50 50 ml @ 100 mls/hr IV Q24H [facility] Rx#:[id number] Oral 1060 / 1210 150 / 1210 320 / 320 Output: Urine Amount (Catheter) 700 / 1300 600 / 1300 Hanna/Indwelling 700 / 1300 600 / 1300 Other: Weight 78.1 kg Weight Measurement Method Built in [facility] Diagnostic Findings EKG 04/25/25: SR with marked sinus arrhythmia. HR 73 bpm, QTc 497 ms. PACs, RBB, LAFB, bifascicular block. Medications Administered Current Inpatient Medications Acetaminophen (Acetaminophen 325 Mg Tab) 650 mg PO Q6H PRN PRN Reason: Fever greater than 100/Pain Stop: 05/21/25 13:45 Albuterol (Albut/Ipratrop 3mg/0.5mg Neb 3 Ml Vial) 3 ml NEB Q6R PRN; Protocol PRN Reason: Shortness Of Breath Stop: 05/21/25 13:52 Last Admin: 04/22/25 11:21 Dose: 3 ml Amitriptyline HCl (Amitriptyline Hcl 10 Mg Tab) 30 mg PO HS DARIN Stop: 05/21/25 20:59 Last Admin: 04/25/25 21:29 Dose: 30 mg Apixaban (Apixaban 2.5 Mg Tab) 2.5 mg PO BID DARIN Stop: 05/26/25 08:59 Last Admin: 04/26/25 09:04 Dose: 2.5 mg Atorvastatin Calcium (Atorvastatin 40 Mg Tab) 40 mg PO HS DARIN Stop: 05/21/25 20:59 Last Admin: 04/25/25 21:28 Dose: 40 mg Azithromycin (Azithromycin 250 Mg Tab) 500 mg PO QAM DARIN Stop: 04/27/25 08:59 Dextrose (Dextrose 50% 50 Ml Syringe) 25 - 50 ml IV UD PRN; Protocol PRN Reason: Hypoglycemia Protocol Stop: 05/21/25 16:29 Docusate Sodium (Docusate Sodium 100 Mg Cap) 100 mg PO AMHS DARIN Stop: 05/21/25 20:59 Last Admin: 04/26/25 09:13 Dose: 100 mg Finasteride (Finasteride 5 Mg Tab) 5 mg PO QAM DARIN Stop: 05/22/25 08:59 Last Admin: 04/26/25 09:04 Dose: 5 mg Furosemide (Furosemide Inj 20 Mg/2 Ml Vial) 40 mg IV [id number] DARIN Stop: 05/22/25 16:59 Last Admin: 04/24/25 17:37 Dose: 40 mg Glucagon (Glucagon For Inj 1 Mg Vial) 1 mg SQ UD PRN; Protocol PRN Reason: Hypoglycemia Protocol Stop: 05/21/25 16:29 Glucose (Glucose 40% Gel 15 Gm Tube) 15 - 30 gm PO UD PRN; Protocol PRN Reason: Hypoglycemia Protocol Stop: 05/21/25 16:29 Glucose (Glucose 10 Tab/Tube) 4 - 8 tab PO UD PRN; Protocol PRN Reason: Hypoglycemia Protocol Stop: 05/21/25 16:29 Ceftriaxone Sodium (Rocephin) 2,000 mg in 50 mls @ 100 mls/hr IV Q24H DARIN; Protocol Stop: 04/26/25 17:59 Last Infusion: 04/25/25 18:51 Dose: Infused Insulin Aspart (Insulin Aspart Per Unit Charge) 0 units SC ACHS [facility] Stop: 05/21/25 16:29 Last Admin: 04/26/25 09:05 Dose: 4 units Insulin Glargine (Lantus Per Unit Charge) 8 units SC TODAY@1130 ONE Stop: 04/26/25 11:31 Metoprolol Tartrate (Metoprolol Tartrate 25 Mg Tab) 25 mg PO QID [facility] Stop: 05/22/25 12:59 Last Admin: 04/26/25 09:04 Dose: 25 mg Miscellaneous (Carbohydrates For Hypoglycemia ) 15 - 30 gm PO UD PRN PRN Reason: Hypoglycemia Treatment Stop: 05/21/25 16:29 Miscellaneous Information (Pharmacy Glycemic Mgmt Consult) 1 each N/A UD PRN; Protocol PRN Reason: Consult Stop: 05/21/25 13:48 Oxycodone HCl (Oxycodone Hcl Ir 5 Mg Tab (Immediate Release)) 5 mg PO Q6H PRN PRN Reason: Pain not relieved by tylenol Stop: 05/05/25 13:45 Pantoprazole Sodium (Pantoprazole 40 Mg Tab) 40 mg PO BID [facility] Stop: 05/21/25 20:59 Last Admin: 04/26/25 09:04 Dose: 40 mg Potassium Chloride (Potassium Chloride Crtab 20 Meq Tabcr) 20 meq PO BID [facility] Stop: 05/24/25 08:59 Last Admin: 04/26/25 09:13 Dose: 20 meq Pregabalin (Pregabalin 75 Mg Cap) 75 mg PO AMHS [facility] Stop: 05/21/25 20:59 Last Admin: 04/26/25 09:13 Dose: 75 mg Sodium Biphosphate/Sodium Phosphate (Sod Phosphate/Sod Biphosphate Enema 132 Ml Btl) 118 ml VA DAILY PRN PRN Reason: Constipation Stop: 05/21/25 13:45 Tamsulosin HCl (Tamsulosin Hcl 0.4 Mg Cap) 0.4 mg PO HS DARIN Stop: 05/21/25 20:59 Last Admin: 04/25/25 21:28 Dose: 0.4 mg (5) Aortic stenosis Cardiac valve disease etiology: etiology unspecified Qualified Code(s): I35.0 - Nonrheumatic aortic (valve) stenosis
[2025-04-26] MEDS: APIXABAN 2.5 MG TAB PO SCH (09:04)
--- NOTE | 2025-04-26 10:18 | Hospitalist Progress Note ---
Date of Service April 26, 2025 Assessment & Plan (1) Acute CHF: Plan: -CXR showing Pulmonary edema with possible PNA at lung bases -lasix 40mg IV BID -echo shows EF 55% -cardiology consult appreciated -on rocephin for UTI, PNA coverage -duonebs prn -lasix currently on hold 2nd to CESAR -CXR showing improvement (2) Acute UTI: Plan: -chronic indwelling Hanna -rocephin -f/u urine C&S -blood cultures + for proteus (3) Atrial fibrillation with rapid ventricular response: Plan: -HR now controlled -elevated troponin 192 likely rate related -metoprolol given in ER HR still elevated -cardizem drip started -eliquis -metoprolol increased to 25 mg po QID (4) Acute kidney injury superimposed on CKD: Plan: cr. 3.4, previous 2.2 requiring lasix diuresis for CHF Chronic Hanna with UTI Nephrology consulted renal US shows no hydronephrosis (5) Diabetes mellitus, type II: Plan: -RISS -lantus (6) BPH (benign prostatic hyperplasia): Plan: -tamsulonsin Admission and Anticipated Discharge Date Admission Date: April 21, 2025 Subjective No events overnight, pt resting comfortably in bed. Review of Systems Review of Systems: CONST: Negative for fever, body aches and chills. HENT: Negative for neck pain/stiffness, headache, congestion, sore throat, swelling. EYES: Negative for discharge/pain or vision changes. RESP: Negative for cough/hemoptysis and shortness of breath. CV: Negative chest pain, difficulty breathing, palpitations. ABD: Negative pain, nausea, vomiting. : Negative increase frequency, dysuria, blood in urine or stool. MUSC: Negative for muscle aches, edema. SKIN: Negative rash, lesions/sores. NEURO: Negative headache, dizziness, weakness. Physical Exam Physical Exam: GENERAL APPEARANCE mild distress EYES lids/conjunctiva normal. EARS/NOSE/THROAT Mucous membranes moist, nares normal, lips/teeth normal uvula midline without oral pharyngeal erythema, exudate or swelling TMs normal bilaterally. No lymphangitis/lymphedema. HEAD/NECK Bipap in place, no facial trauma, neck is supple. RESPIRATORY B/L ronchi CARDIAC Regular rate and rhythm, no edema. ABDOMINAL Soft, ND/NT. No evidence of fluid wave. No pulsatile masses on exam, rebound tenderness, Gracia sign or pain over Mcburney's point. MUSCLES/EXTREMITIES No abnormal range of motion, no swelling. Right leg BKA SKIN Warm, pink and dry. No rashes, dermatoses, petechiae or lesions. NEUROLOGICAL Speech is clear and appropriate. Normal level of consciousness. Gait and coordination are normal. 5/5 strength in all extremities. PSYCH Normal mood and affect. Judgement/competence is appropriate Results & Data Results & Data Vital Signs (Past 12 Hours) Vital Signs Temp Pulse Pulse Resp BP Pulse Ox O2 Del Method 04/26/25 08:12 36.5 C 66 20 132/71 93 Room Air 04/26/25 03:20 36.6 C 70 18 130/68 92 Room Air 04/26/25 00:28 68 17 99 04/25/25 23:26 36.6 C 68 16 129/61 97 Room Air FiO2 04/26/25 08:12 04/26/25 03:20 04/26/25 00:28 35 04/25/25 23:26 PG Care Time/CCT Total # of Minutes Spent Total Time Spent with Patient: Total time spent is greater than 50% in coordination of care (as documented) at patient's floor/unit and/or counseling patient: Coding Level of Care Code 95439 SUB INP/OBS CARE 2/35MIN Diagnoses Acute CHF I50.9 Acute UTI N39.0 Atrial fibrillation with rapid ventricular response I48.91 Acute kidney injury superimposed on CKD N17.9; N18.9 Type 2 diabetes mellitus with foot ulcer, with long-term current use of insulin E11.621; L97.509; Z79.4 Diabetes mellitus rodent exterminator insulin use: with alf use Diabetes mellitus complication status: with skin complications Diabetes mellitus complication detail: with foot ulcer BPH (benign prostatic hyperplasia) N40.0 (5) Diabetes mellitus, type II Diabetes mellitus rodent exterminator insulin use: with rodent exterminator use Diabetes mellitus complication status: with skin complications Diabetes mellitus complication detail: with foot ulcer Qualified Code(s): E11.621 - Type 2 diabetes mellitus with foot ulcer; L97.509 - Non-pressure chronic ulcer of other part of unspecified foot with unspecified severity; Z79.4 - USP (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
[2025-04-26] MEDS: METOPROLOL SUCC 25MG EXT REL TAB PO STA (12:36)
[2025-04-26] MEDS: LANTUS PER UNIT CHARGE SC ONE (12:37)
[2025-04-26] MEDS: CARBOHYDRATES FOR HYPOGLYCEMIA PO PRN (16:14)
[2025-04-26] MEDS: METOPROLOL SUCC 50MG EXT REL TAB PO SCH (22:27)
[2025-04-27 07:14] LABS: Hematocrit (blood only) 27.1 % (42.0-52.0); Hemoglobin 8.7 g/dl (14.0-18.0); Mean Corpuscular Hemoglobin 28.4 pg (25.0-34.0); Mean Corpuscular Hgb Conc 32.1 g/dL (32.0-36.0); Mean Corpuscular Volume 88.6 fL (80.0-100.0); Mean Platelet Volume 10.9 fL (9.4-12.4); Platelet Count 239 K/uL (130-400); RDW Coefficient of Variation 15.1 % (11.5-14.5); RDW Standard Deviation 48.7 fL (36.4-46.3); Red Blood Count 3.06 M/uL (4.70-6.10); White Blood Count 10.08 K/ul (4.8-10.8)
[2025-04-27 07:39] LABS: BUN Creatinine Ratio 20.4 (10-20); Calcium 8.5 mg/dl (8.6-10.3); Creatinine Clr Calc Pharmacy 17.8 ml/min; Potassium 4.2 mmol/L (3.5-5.1)
--- NOTE | 2025-04-27 08:27 | Cardiology Progress Note ---
Date of Service April 27, 2025 Assessment & Plan (1) Atrial fibrillation with rapid ventricular response: (2) Acute heart failure with preserved ejection fraction: (3) Acute kidney injury superimposed on CKD: (4) Acute UTI: (5) Aortic stenosis: Plan Assessment: 79 year old male with complex medical history including CKD and s/p right BKA; admitted with urosepsis, HFpEF, A-fib with RVR, and possible severe aortic valve stenosis. Cardiology services requested for assessment and recommendations. Afib: -Patient with no acute cardiac complaints. -Telemetry reviewed: Patient remains in sinus rhythm with PACs, HR 60s. No acute events overnight. (Spontaneously converted overnight 04/22 to 04/23/25). -Continue Metoprolol succinate 50 mg BID. -Continue Eliquis 2.5 mg BID. Chronic respiratory failure, HFpEF: -Creatinine improving since diuretics held on 04/25/25. Cr 3.14 today (3.46 on 04/26/25). Continue to hold. Consider resuming Lasix PO 20 mg daily at discharge. -Nephrology following. -Fluid balance negative 9.4 liters since admission; 0.4 L in the last 24 hrs. -Monitor fluid balance, daily weight, GFR, electrolytes. -Replete electrolytes as indicated. UTI: -Chronic indwelling catheter -Positive urine culture and blood culture on 04/21/25 (Enterobacterales, Proteus). Antibiotics per primary team. Severe aortic stenosis: -Recommend outpatient evaluation. Follow up with valve clinic HLD: -Continue Atorvastatin 40 mg daily. Case discussed with administrative assistant office manager Dr. Oreilly. Further recommendations pending his evaluation and assessment. I spent a total of 35 minutes on the date of service in preparation, delivery, a nd documentation of the care provided to this patient, excluding any time spent in the performance of separately billed services. Annabel Benitez, PAJoanneC Department of Cardiology, [facility] This chart was completed in part utilizing Speech Voice Recognition Software. Grammatical errors, random word insertions, pronoun errors, and incomplete sentences are an occasional consequence of this system due to software limitations, ambient noise, and hardware issues. Any formal questions or concerns about the content, text, or information contained within the body of this dictation should be directly addressed to the provider for clarification. Admission and Anticipated Discharge Date Admission Date: April 21, 2025 Supervising Physician Co-Signing Physician Notes I have personally performed a history and physical examination on the patient. I have reviewed the advance practitioner's documentation, and I agree with, and take responsibility for the plan of care. 79-year-old patient seen and examined at bedside. Admitted with urosepsis, h eart failure with preserved ejection fraction, paroxysmal atrial fibrillation, and possible severe aortic valve stenosis. Sinus rhythm 60-70 bpm with PACs on telemetry. Fluid balance negative 8.7L since admission. Creatinine trending down to 3.14. Recommendations: * Restart oral Lasix at discharge. * Continue metoprolol [id number] mg twice daily. * Apixaban reduced to 2.5 mg twice daily by internal medicine. * Continue atorvastatin as ordered. * Outpatient cardiology evaluation regarding aortic valve stenosis. I spent a total of 25 minutes on the date of service in preparation, delivery, and documentation of the care provided to this patient, excluding any time spent in the performance of separately billed services. Carlos Oreilly DO, [facility] Subjective Patient seen and examined today for follow-up. He is resting comfortably in bed. Offers no acute cardiac complaints. Denies chest pain, palpitations. States he is short of breath at baseline but no longer requires O2 via nasal cannula. Labs, diagnostics, vitals, and documentation reviewed. Telemetry reviewed: Patient remains in sinus rhythm with PACs, HR 60s. No acute events overnight. Review of Systems Review of Systems: All systems reviewed & are unremarkable except as noted in HPI & below Physical Exam Physical Exam: Patient hard of hearing. Constitutional: well developed; no acute distress Eyes: PERRL, conjunctivae normal, anicteric sclerae Neck: normal visual inspection and trachea midline Respiratory: normal respiratory effort, lungs clear to auscultation Cardiovascular: Rate/Rhythm: regular rhythm Heart Sounds: + murmur (Severe noted) Vessels: no JVD Extremities: no edema Musculoskeletal: Extremities: + amputation noted (R BKA) Skin: no rashes, warm and dry Psychiatric: A+Ox3, euthymic affect Results & Data Vital Signs (Past 12 Hours) Vital Signs Temp Pulse Pulse Resp BP Pulse Ox O2 Del Method 04/27/25 03:16 62 17 98 04/27/25 00:28 36.6 C 65 21 157/89 H 96 Room Air 04/26/25 23:20 64 FiO2 04/27/25 03:16 35 04/27/25 00:28 04/26/25 23:20 Laboratory Results CBC 04/27/25 Range/Units 06:42 WBC 10.08 (4.8-10.8) K/ul RBC 3.06 L (4.70-6.10) M/uL Hgb 8.7 L (14.0-18.0) g/dl Hct 27.1 L (42.0-52.0) % Plt Count 239 (130-400) K/uL Comprehensive Metabolic Panel 04/27/25 Range/Units 06:42 Sodium 141 (136-145) mmol/L Potassium 4.2 (3.5-5.1) mmol/L Chloride 102 (98-107) mmol/L Carbon Dioxide 33 H (21-32) mmol/L BUN 64 H (6-23) mg/dl Creatinine 3.14 H D (0.6-1.4) mg/dl Glucose 163 H (70-99(Fasting)) mg/dl Calcium 8.5 L (8.6-10.3) mg/dl Intake and Output 04/26/25 04/27/25 04/27/25 22:59 06:59 14:59 Intake Total 120 / 910 Output Total 700 / 1301 Balance -580 / -391 Intake: Oral 120 / 910 Output: Urine Amount (Catheter) 700 / 1300 Hanna/Indwelling 700 / 1300 Other: Weight 78.3 kg Weight Measurement Method Built in [facility] Medications Administered Current Inpatient Medications Acetaminophen (Acetaminophen 325 Mg Tab) 650 mg PO Q6H PRN PRN Reason: Fever greater than 100/Pain Stop: 05/21/25 13:45 Albuterol (Albut/Ipratrop 3mg/0.5mg Neb 3 Ml Vial) 3 ml NEB Q6R PRN; Protocol PRN Reason: Shortness Of Breath Stop: 05/21/25 13:52 Last Admin: 04/22/25 11:21 Dose: 3 ml Amitriptyline HCl (Amitriptyline Hcl 10 Mg Tab) 30 mg PO HS DARIN Stop: 05/21/25 20:59 Last Admin: 04/26/25 22:35 Dose: 30 mg Apixaban (Apixaban 2.5 Mg Tab) 2.5 mg PO BID DARIN Stop: 05/26/25 08:59 Last Admin: 04/26/25 22:27 Dose: 2.5 mg Atorvastatin Calcium (Atorvastatin 40 Mg Tab) 40 mg PO HS [facility] Stop: 05/21/25 20:59 Last Admin: 04/26/25 22:26 Dose: 40 mg Azithromycin (Azithromycin 250 Mg Tab) 500 mg PO QAM DARIN Stop: 04/27/25 08:59 Dextrose (Dextrose 50% 50 Ml Syringe) 25 - 50 ml IV UD PRN; Protocol PRN Reason: Hypoglycemia Protocol Stop: 05/21/25 16:29 Docusate Sodium (Docusate Sodium 100 Mg Cap) 100 mg PO AMHS DARIN Stop: 05/21/25 20:59 Last Admin: 04/26/25 22:26 Dose: 100 mg Finasteride (Finasteride 5 Mg Tab) 5 mg PO QAM DARIN Stop: 05/22/25 08:59 Last Admin: 04/26/25 09:04 Dose: 5 mg Furosemide (Furosemide Inj 20 Mg/2 Ml Vial) 40 mg IV [id number] DARIN Stop: 05/22/25 16:59 Last Admin: 04/24/25 17:37 Dose: 40 mg Glucagon (Glucagon For Inj 1 Mg Vial) 1 mg SQ UD PRN; Protocol PRN Reason: Hypoglycemia Protocol Stop: 05/21/25 16:29 Glucose (Glucose 40% Gel 15 Gm Tube) 15 - 30 gm PO UD PRN; Protocol PRN Reason: Hypoglycemia Protocol Stop: 05/21/25 16:29 Glucose (Glucose 10 Tab/Tube) 4 - 8 tab PO UD PRN; Protocol PRN Reason: Hypoglycemia Protocol Stop: 05/21/25 16:29 Ceftriaxone Sodium (Rocephin) 2,000 mg in 50 mls @ 100 mls/hr IV DAILY DARIN Stop: 05/06/25 07:59 Insulin Aspart (Insulin Aspart Per Unit Charge) 0 units SC DAILY@0730 [facility] Stop: 05/27/25 07:29 Insulin Aspart (Insulin Aspart Per Unit Charge) 0 units SC TID@1130,1630,2100 [facility] Stop: 05/27/25 11:29 Insulin Glargine (Lantus Per Unit Charge) 8 units SC TODAY@1630 ONE Stop: 04/27/25 16:31 Metoprolol Succinate (Metoprolol Succ 50mg Ext Rel Tab) 50 mg PO BID DARIN Stop: 05/26/25 20:59 Last Admin: 04/26/25 22:27 Dose: 50 mg Miscellaneous (Carbohydrates For Hypoglycemia ) 15 - 30 gm PO UD PRN PRN Reason: Hypoglycemia Treatment Stop: 05/21/25 16:29 Last Admin: 04/26/25 16:34 Dose: 15 gm Miscellaneous Information (Pharmacy Glycemic Mgmt Consult) 1 each N/A UD PRN; Protocol PRN Reason: Consult Stop: 05/21/25 13:48 Oxycodone HCl (Oxycodone Hcl Ir 5 Mg Tab (Immediate Release)) 5 mg PO Q6H PRN PRN Reason: Pain not relieved by tylenol Stop: 05/05/25 13:45 Pantoprazole Sodium (Pantoprazole 40 Mg Tab) 40 mg PO BID DARIN Stop: 05/21/25 20:59 Last Admin: 04/26/25 22:26 Dose: 40 mg Potassium Chloride (Potassium Chloride Crtab 20 Meq Tabcr) 20 meq PO BID DARIN Stop: 05/24/25 08:59 Last Admin: 04/26/25 22:26 Dose: 20 meq Pregabalin (Pregabalin 75 Mg Cap) 75 mg PO AMHS DARIN Stop: 05/21/25 20:59 Last Admin: 04/26/25 22:26 Dose: 75 mg Sodium Biphosphate/Sodium Phosphate (Sod Phosphate/Sod Biphosphate Enema 132 Ml Btl) 118 ml HI DAILY PRN PRN Reason: Constipation Stop: 05/21/25 13:45 Tamsulosin HCl (Tamsulosin Hcl 0.4 Mg Cap) 0.4 mg PO HS DARIN Stop: 05/21/25 20:59 Last Admin: 04/26/25 22:26 Dose: 0.4 mg (5) Aortic stenosis Cardiac valve disease etiology: etiology unspecified Qualified Code(s): I35.0 - Nonrheumatic aortic (valve) stenosis
[2025-04-27] MEDS: INSULIN ASPART PER UNIT CHARGE SC SCH ×2 (08:32→12:14)
[2025-04-27 08:33] VITALS: BP 130/74; PULSE 67; RESP 19; TEMP 97.5; O2SAT 95
[2025-04-27] MEDS: cefTRIAXone SODIUM 2,000 MG/50 ML BAG IV SCH (08:33)
--- NOTE | 2025-04-27 10:21 | Pharmacy Report ---
Pharmacy Glycemic Short Note 2 - Date of Service April 27, 2025 - Glycemic Short BSG Results (Last 24 hours): 04/26/25 04/26/25 04/26/25 11:11 16:08 16:10 Glucose POC Glucose 207 H 61 L* 59 L* 04/26/25 04/26/25 04/26/25 16:30 16:32 16:54 Glucose POC Glucose 58 L* 67 L* 72 04/26/25 04/27/25 04/27/25 21:32 06:42 07:25 Glucose 163 H POC Glucose 139 H 156 H OUTPATIENT ANTIDIABETIC REGIMEN: * Lantus 5 units HS, Lispro 2 units TIDM + SSI * A1c 6.2% 03/16/25 ASSESSMENT: 04/27 * Stressors stable * AM fasting BSG slightly above goal, but this may be due to gradually pollack sitioning Lantus back to HS schedule (home routine). Dose is already greater than home dose. Will not adjust for now. * Lunch BSG significantly elevated, but dinner BSG with hypoglycemia to 61 mg/dL yesterday. Possible stacking since breakfast Novolog was adminsitered about 2 hours prior to obtaining lunch BSG. However, to prevent further episodes, will loosen parameters at lunch, dinner, and HS. Will however tighten breakfast parameters to avoid hyperglycemia at lunch 04/25 * BSGs 97-68-146-156 mg/dL yesterday with 8 units of lantus and 14 units of bolus insulin * Fasting somewhat elevated this morning-189 mg/dL, but given previous will continue with 8 units today, SCr is trending upward with lasix use * Novolog was loosened with dinner yesterday as AM/lunch BSG < 100 mg/dL (to 1 unit/15 grams CHO), tightened again slightly this morning to 1 unit per 12 units of CHO as dinner/HS were >150 mg/dL yesterday * Continues with T2DM diet. 04/22 * patient admitted with Afib with RVR, CHF exacerbation * Parameters initially loose for BSGs borderline low, however trended upward. Patient did receive 1x dose of methylprednisolone yesterday * Novolog parameters initiated close to weight stress of 1. * 5 unit IV dose given with lunch for persistently elevated BSG. carb ratio tightened. will monitor PLAN FOR INPATIENT GLYCEMIC CONTROL: * Hold outpatient oral diabetes medications * Basal insulin * Lantus 8 units today @ 1630 then HS ongoing * Bolus insulin * NovoLog per scale ACHS or Q6hrs while NPO * Goal Range: Low 110 mg/dL - High 150 mg/dL * Correction Factor: 35 mg/dL/unit with breakfast. 40 mg/dL/unit with lunch, dinner, HS * CHO ratio: 11 g CHO/unit with breakfast. 14 g CHO/unit with lunch, dinner, HS
--- NOTE | 2025-04-27 10:32 | Hospitalist Progress Note ---
Date of Service April 27, 2025 Assessment & Plan (1) Acute CHF: Plan: -CXR showing Pulmonary edema with possible PNA at lung bases -lasix 40mg IV BID -echo shows EF 55% -cardiology consult appreciated -on rocephin for UTI, PNA coverage -duonebs prn -lasix currently on hold 2nd to CESAR -CXR showing improvement -pt 02 sats 95% on room air -plan to d/c in next 24hrs (2) Acute UTI: Plan: -chronic indwelling Hanna -rocephin -f/u urine C&S -blood cultures + for proteus (3) Atrial fibrillation with rapid ventricular response: Plan: -HR now controlled -elevated troponin 192 likely rate related -metoprolol given in ER HR still elevated -cardizem drip started -eliquis -metoprolol increased to 25 mg po QID (4) Acute kidney injury superimposed on CKD: Plan: cr improving to 3.1, previous 3.4, baseine 2.2 requiring lasix diuresis for CHF Chronic Hanna with UTI Nephrology consulted renal US shows no hydronephrosis (5) Diabetes mellitus, type II: Plan: -RISS -lantus (6) BPH (benign prostatic hyperplasia): Plan: -tamsulonsin Admission and Anticipated Discharge Date Admission Date: April 21, 2025 Subjective No events overnight. Pt resting comfortably in bed. Review of Systems Review of Systems: CONST: Negative for fever, body aches and chills. HENT: Negative for neck pain/stiffness, headache, congestion, sore throat, swelling. EYES: Negative for discharge/pain or vision changes. RESP: Negative for cough/hemoptysis and shortness of breath. CV: Negative chest pain, difficulty breathing, palpitations. ABD: Negative pain, nausea, vomiting. : Negative increase frequency, dysuria, blood in urine or stool. MUSC: Negative for muscle aches, edema. SKIN: Negative rash, lesions/sores. NEURO: Negative headache, dizziness, weakness. Physical Exam Physical Exam: GENERAL APPEARANCE mild distress EYES lids/conjunctiva normal. EARS/NOSE/THROAT Mucous membranes moist, nares normal, lips/teeth normal uvula midline without oral pharyngeal erythema, exudate or swelling TMs normal bilaterally. No lymphangitis/lymphedema. HEAD/NECK Bipap in place, no facial trauma, neck is supple. RESPIRATORY B/L ronchi CARDIAC Regular rate and rhythm, no edema. ABDOMINAL Soft, ND/NT. No evidence of fluid wave. No pulsatile masses on exam, rebound tenderness, Gracia sign or pain over Mcburney's point. MUSCLES/EXTREMITIES No abnormal range of motion, no swelling. Right leg BKA SKIN Warm, pink and dry. No rashes, dermatoses, petechiae or lesions. NEUROLOGICAL Speech is clear and appropriate. Normal level of consciousness. Gait and coordination are normal. 5/5 strength in all extremities. PSYCH Normal mood and affect. Judgement/competence is appropriate Results & Data Results & Data Vital Signs (Past 12 Hours) Vital Signs Temp Pulse Pulse Resp BP Pulse Ox O2 Del Method 04/27/25 08:32 36.4 C L 67 19 130/74 95 Room Air 04/27/25 03:16 62 17 98 04/27/25 00:28 36.6 C 65 21 157/89 H 96 Room Air 04/26/25 23:20 64 FiO2 04/27/25 08:32 04/27/25 03:16 35 04/27/25 00:28 04/26/25 23:20 PG Care Time/CCT Total # of Minutes Spent Total Time Spent with Patient: Total time spent is greater than 50% in coordination of care (as documented) at patient's floor/unit and/or counseling patient: Coding Level of Care Code 48221 SUB INP/OBS CARE 2/35MIN Diagnoses Acute CHF I50.9 Acute UTI N39.0 Atrial fibrillation with rapid ventricular response I48.91 Acute kidney injury superimposed on CKD N17.9; N18.9 Type 2 diabetes mellitus with foot ulcer, with long-term current use of insulin E11.621; L97.509; Z79.4 Diabetes mellitus meterman insulin use: with mcfp use Diabetes mellitus complication status: with skin complications Diabetes mellitus complication detail: with foot ulcer BPH (benign prostatic hyperplasia) N40.0 (5) Diabetes mellitus, type II Diabetes mellitus mcfp insulin use: with meterman use Diabetes mellitus complication status: with skin complications Diabetes mellitus complication detail: with foot ulcer Qualified Code(s): E11.621 - Type 2 diabetes mellitus with foot ulcer; L97.509 - Non-pressure chronic ulcer of other part of unspecified foot with unspecified severity; Z79.4 - [facility] (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
--- NOTE | 2025-04-27 11:18 | Discharge Summary ---
Discharge Summary Date of Service April 27, 2025 Principal Dx & Hospital Course #1 = Principal Diagnosis (1) Acute CHF: -CXR showing Pulmonary edema with possible PNA at lung bases -lasix 40mg IV BID -echo shows EF 55% -cardiology consult appreciated -on rocephin for UTI, PNA coverage -duonebs prn -lasix currently on hold 2nd to CESAR -CXR showing improvement -pt 02 sats 95% on room air -plan to d/c in next 24hrs (2) Acute UTI: -chronic indwelling Hanna -rocephin -f/u urine C&S -blood cultures + for proteus (3) Atrial fibrillation with rapid ventricular response: -HR now controlled -elevated troponin 192 likely rate related -metoprolol given in ER HR still elevated -cardizem drip started -eliquis -metoprolol increased to 25 mg po QID (4) Acute kidney injury superimposed on CKD: cr improving to 3.1, previous 3.4, baseine 2.2 requiring lasix diuresis for CHF Chronic Hanna with UTI Nephrology consulted renal US shows no hydronephrosis (5) Diabetes mellitus, type II: -RISS -lantus (6) BPH (benign prostatic hyperplasia): -tamsulonsin Admission HPI Per Admitting Provider Pt is a 79 y/o male with pmh of Afib on eliquis, CHF, aortic stenosis, DM, chronic indwelling Hanna, RLE BKA who present from center care after being found to be hypoxic this am with crackles in his lungs. In the ER he complained of SOB, no chest pain. Pt was on a prednisone taper prior to admission. He was placed on Bipap and sats improved to 100%. His labs showed WBC 19k, and cr 2.7 up from 2.2. His CXR showed pulmonary vascular congestion and possible PNA at bases. His UA + for UTI. Pt was noted to be in Afib with RVR at 130bpm. Pt was given metoprolol 5mg IV and HR still elevated. Cardizem drip started. Pt was noted to have troponin 192. He was placed on zosyn/vancomycin for treatment of UTI and possible PNA. He was also started on lasix 20mg IV for possible CHF. Discharge Exam GENERAL APPEARANCE mild distress EYES lids/conjunctiva normal. EARS/NOSE/THROAT Mucous membranes moist, nares normal, lips/teeth normal uvula midline without oral pharyngeal erythema, exudate or swelling TMs normal bilaterally. No lymphangitis/lymphedema. HEAD/NECK Bipap in place, no facial trauma, neck is supple. RESPIRATORY B/L ronchi CARDIAC Regular rate and rhythm, no edema. ABDOMINAL Soft, ND/NT. No evidence of fluid wave. No pulsatile masses on exam, rebound tenderness, Gracia sign or pain over Mcburney's point. MUSCLES/EXTREMITIES No abnormal range of motion, no swelling. Right leg BKA SKIN Warm, pink and dry. No rashes, dermatoses, petechiae or lesions. NEUROLOGICAL Speech is clear and appropriate. Normal level of consciousness. Gait and coordination are normal. 5/5 strength in all extremities. PSYCH Normal mood and affect. Judgement/competence is appropriate Discharge Plan Discharge Items Patient Disposition: Transfer [facility] Fac Reason For Visit: CHF,AFIB WITH RVR, UTI Discharge Diagnosis: CHF, Afib with RVR, UTI Condition on Discharge: Serious Activity: Resume your previous activity Non-emergency contact: Primary Care Provider Call non-emergency contact if: you have any medication questions Follow-up/Referrals: [facility] [Primary Care Provider] - Diet: Regular Addtl Attending Provider Instructions: Follow up with PMD in 1 week Pending Studies at Discharge: No Stand-Alone Forms: My [facility] Skilled Items Patient informed of condition?: No DNR: No Discharge Level of Care: Skilled Communicable Disease: No Discharge Prognosis: Stable Lines: None Urinary Catheter: No Medications and DC Order Prescriptions: New metoprolol succinate 50 mg Tablet Extended Release 24 Hr 50 mg PO BID Qty: 60 0RF Eliquis 2.5 mg Tablet 2.5 mg PO BID Qty: 60 0RF Continued insulin glargine [Lantus Solostar U-100 Insulin] 100 unit/mL (3 mL) insulin pen 5 unit SUBCUT HS polyethylene glycol 3350 [Miralax] 17 gram Powder In Packet 17 g PO DAILY PRN (Reason: constipation) Qty: 14 0RF acetaminophen [Tylenol] 325 mg Tablet 650 mg PO Q6H MDD 3g/24hrs PRN (Reason: Fever greater than 100/Pain) magnesium hydroxide [Milk of Magnesia] 400 mg/5 mL Suspension 2,400 mg PO DAILY PRN (Reason: Constipation) Rx Instructions: Give 30ml by mouth as needed for constipation after no BM for three days, administer MPM on 7-3 shift amitriptyline 10 mg Tablet 30 mg PO HS bisacodyl [Dulcolax (bisacodyl)] 10 mg Suppository 10 mg AZ DAILY PRN (Reason: Constipation) Rx Instructions: Insert 1 unit rectally as needed for constipation, give suppository on day 3; 3-11 shift if no BM after MOM Fleet Enema 19-7 gram/118 mL Enema 118 ml AZ DAILY PRN (Reason: Constipation) Rx Instructions: Insert 1 unit rectally as needed for constipation if no BM after dulcolax administer fleets on 7-3 shift; day 4 insulin lispro [Humalog U-100 Insulin] 100 unit/mL Solution 2 unit subcut TIDWMEAL insulin lispro [Humalog U-100 Insulin] 100 unit/mL Solution 1 sliding scale dose SUBCUT USEASDIRECTD Rx Instructions: Subcutaneously before meals and at bedtime for DM. 350-400 = 8units; 401-450 = 12units; 451-500 = 16units; 501-550 = 18units. Recheck in 1 hour, report result to MD/PRODUCT LEAD. BSG<90, BSG>551 Glucagon Emergency Kit (human) 1 mg Recon Soln 1 mg IM DIRECTED PRN (Reason: Hypoglycemia) docusate sodium 100 mg Tablet 100 mg PO AMHS Saccharomyces boulardii [Florastor] 250 mg Capsule 250 mg PO AMHS Rx Instructions: Start Date 03/10/25 x5 weeks pregabalin 75 mg Capsule 75 mg PO AMHS atorvastatin 40 mg tablet 40 mg PO HS sennosides-docusate sodium [Senokot-S] 8.6-50 mg tablet 1 tab PO AMHS finasteride 5 mg tablet 5 mg PO QAM oxycodone 5 mg tablet 5 mg PO Q6H PRN (Reason: Pain) tamsulosin 0.4 mg capsule 0.4 mg PO HS pantoprazole 40 mg tablet,delayed release (DR/EC) 40 mg PO BID Qty: 60 0RF Discontinued Eliquis 5 mg tablet 5 mg PO BID Qty: 60 0RF metoprolol tartrate 25 mg tablet 25 mg PO AMHS Discharge Orders: Discharge Order (Routine); Ordered 04/27/25 Ordered By: Rafael Pop Admission Data Admit Date/Time: 04/21/25 14:47 Attending Provider: Rafael Pop Admit Provider: Del Lane Primary Care Provider: [facility] Other Providers: Rafael Pop; Cyrus Alegria; Irma Kendall; Jacek Calderón; Justina Garrett; Daphney Eric; Gerri Mcdonough; [facility] Hospital Stay Data Consultations 04/21/25 13:44 ED Decision to Admit Stat 04/21/25 15:17 Consult Cardiology Stat 04/21/25 16:40 Consult Nephrology Routine Diagnostic Imagining Performed 04/25/25 US renal/blad retro comp Routine Pending Results Patient Have Any Pending Studies at Discharge: No Discharge Instructions Given to Patient (Per Discharging Provider) Follow up with PMD in 1 week Total Time Total Time Spent Total Time Spent (In Minutes): 50 Coding Level of Care Code 06407 INP/OBS DISCH >30 MIN Diagnoses Acute CHF I50.9 Acute UTI N39.0 Atrial fibrillation with rapid ventricular response I48.91 Acute kidney injury superimposed on CKD N17.9; N18.9 Type 2 diabetes mellitus with foot ulcer, with long-term current use of insulin E11.621; L97.509; Z79.4 Diabetes mellitus penitentiary insulin use: with penitentiary use Diabetes mellitus complication status: with skin complications Diabetes mellitus complication detail: with foot ulcer BPH (benign prostatic hyperplasia) N40.0
[2025-04-27] MEDS ORDERED: LANTUS PER UNIT CHARGE SC ONE (16:30)
--- NOTE | 2025-04-27 17:46 | Communication Note ---
Date of Service: April 27, 2025 Pt left before I could evaluate him today Will have [facility] d/c systems requirements planner f/u: -needs lasix 60 mg po bid and potassium chloride 10 mEq bid in addition to meds on med rec -pls have facility check BMP weekly -if concerns at facility about bmp, pls refer pt for OP neph f/u; else follow w/ cardiology and facility providers
[2025-04-28] MEDS ORDERED: LANTUS PER UNIT CHARGE SC SCH (21:00)
== END 2025-04-27 14:23 | DRG 291 ==
LOC: SUATTDRO → ED 11:29 → 2E 14:47

== ENCOUNTER 2025-07-03 11:57 | Inpatient (IN) ==
--- NOTE | 2025-07-03 12:15 | Emergency Department Note ---
Impression & Plan Septic shock, Acute and chronic respiratory failure with hypoxia ED Provider Note NAME: KATHARINE VANN AGE: 79 SEX: M : 1945 ARRIVES VIA: Ambulance INFORMANT: Patient, ED PROVIDER(S): Leonides Gann MD CHIEF COMPLAINT: Catheter displacement MEDICAL DECISION MAKING: Patient presents with above with associated hematuria patient did have a low- grade temp at 37 5 so sepsis protocols initiated. Review of most recent urine and blood culture showed Proteus sensitive to Rocephin. Patient given an empiric dose of IV cefepime. Patient given IV fluids 250 in light of the patient's CHF history. Patient's initial blood work relatively unremarkable with a normal white count hemoglobin 12.9 with normal platelet count kidney function more or less at the patient's baseline with creatinine 1.2. Pro-Oswaldo not elevated troponin negative. Patient's lactate of 8. Given reassessed the patient no significant abdominal pain on exam. I did roll the patient patient does have maybe stage I redness to the sacrum but no evidence of any infection to the groin or back. Patient did have a repeat lactate ordered and a CT abdomen pelvis was also ordered to evaluate the abdomen. Repeat lactate of 7. Patient CT abdomen pelvis shows cystitis. Mild to right and mild-moderate left hydroureteronephrosis possibly related to reflux but no evidence of any obstructing stone. Initially the patient was attempted to have a three-way catheter placed. We did receive a call from nursing stating the patient seemed less responsive. They were concerned that the patient may have aspirated as they noted some vomitus to the right side of his face and pillow. Patient's sats were difficult to obtain clinically the patient did not appear well so the patient was placed on high flow nasal cannula discussion with respiratory the patient did have his oropharynx and nasopharynx suctioned. Patient was ordered 500 bolus at the bedside. I did discuss the patient with the on-call hospital service Dr. August who did come down and evaluate the patient. I did perform a bedside ultrasound. The patient's IVC appeared to be fairly flat. Patient did not have evidence of obvious pericardial effusion and no significant B-lines/edema noted. Patient is DNR. I did attempt to make phone calls to the patient's Farhana as well as the patient's son Ceferino. I was unable to reach them but voicemail messages were left asking for a callback. Given the patient's DNR status I did not think that that the patient should be intubated. Patient did show mild improvement in alertness after initial 500 cc of fluid. The patient's VBG showed only mild acidosis at 7.29 with a pCO2 in the 50s. Additional 1 L of IV fluids ordered as the patient was hypotensive. Given the patient's retention I did speak with the on-call urologist after difficulty placing a three-way 20 [place]er catheter. He recommended an 18 or 20 Hong Konger coud catheter. This was placed the patient did have drainage of urine. The patient did not show improvement in his blood pressure during second liter of IVF so Levophed was ordered. The patient did have improvement in blood pressure on the Levophed and was reaching goal MAPs of 65. Assistant Teaching Professor recommended phenylephrine drip instead of Levophed after the inpatient service discussed the patient's case with the lead informatica developer. Phenylephrine drip was ordered. Prior to transfer to the ICU the patient's blood pressure was low when transitioning to the phenylephrine. Critical Care: I have personally spent 95 minutes of critical care time in direct management of this patient. This includes bedside care, interpretation of diagnostic studies, and testing, discussion with consultants, patient, and family members, and other require inpatient management activities. This 95 minutes is in excess of all separately billable procedures. Discussion w/ other healthcare providers: Dr. Kelly inpatient medicine service Prior /Outside records reviewed: I reviewed a discharge summary from 08/27/[address] Veliz. Patient was seen for CHF UTI 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 type 2 diabetes. I did review the patient's most recent blood and urine cultures which showed sensitivities of Proteus to Rocephin. Differential diagnosis: Dehydration, UTI, pneumonia, metabolic derangment, electrolyte abnormalities, hypovolemia, anemia, cellulitis among others were considered. Diagnostics, as interpreted by me: ECG: None Cardiac monitoring: An order was placed for continuous cardiac monitoring. The monitor shows a rate of 67 with sinus rhythm. Patient was placed on pulse oximetry Medical decision rules: None Imaging studies: I informally interpreted the patient's chest x-ray does not show obvious pneumonia with formal report to follow. HPI: Patient presents from care facility due to concern for displacement of Hanna catheter with associated hematuria. Nursing did note the patient had a low-grade temp 37 5. Patient denies any head or neck pain very hard of hearing. No abdominal pain. Bladder scan performed by nursing shows 600 cc. PAST MEDICAL HISTORY: See Below PAST SURGICAL HISTORY: See Below SOCIAL HISTORY: See Below HOME MEDICATIONS: See Below ALLERGIES: See Below VITALS: See Below PHYSICAL EXAMINATION: GENERAL: Mildly ill but nontoxic in appearance. Wearing glasses. Hard of hearing. EYE EXAM: Normal conjunctiva. PERRL, no anisocoria and EOM's grossly intact w/o pain. OROPHARYNX: Moist mucus membranes, grossly normal dentition. NECK: Trachea midline, no stridor. LUNGS: Clear to auscultation. Normal chest wall mechanics. HEART: NSR, no MRG. ABDOMEN: Abdomen soft, non-tender, no masses, no rebound or guarding. BACK: No CVA TTP. SKIN: Exophytic growth to the right side of the face. Nontender. UPPER EXTREMITIES: Upper extremities are grossly normal. LOWER EXTREMITIES: Right BKA noted. No significant swelling bilaterally. NEURO EXAM: Awake and alert, follows commands, no obvious facial asymmetry, moves all 4 extremities. Past Med/Surg History Problem List (Updated 07/03/25 @ 19:26 by Leonides Gann MD) Acute and chronic respiratory failure with hypoxia (Acute) Septic shock (Acute) Hypotension UTI (urinary tract infection) due to urinary indwelling catheter (Chronic) Chronic retention of urine (Chronic) BPH w urinary obs/LUTS (Chronic) Acute heart failure with preserved ejection fraction Aortic stenosis Atrial fibrillation with rapid ventricular response (Acute) Acute CHF (Acute) Acute UTI (Acute) Acute respiratory failure with hypoxia (Acute) Acute kidney injury (CESAR) with acute tubular necrosis (ATN) Acute kidney injury superimposed on CKD S/P BKA (below knee amputation) unilateral Weakness (Acute) Symptomatic anemia (Acute) Catheter-associated urinary tract infection Diabetic foot ulcers Closed compression fracture of thoracic vertebra (Acute) Lymphedema (Chronic) Fall (Acute) Open wound of finger (Acute) Diabetic peripheral neuropathy associated with type 2 diabetes mellitus HTN (hypertension) Diabetic ulcer of right foot (Acute) Charcot foot due to diabetes mellitus Closed T12 fracture (Acute) Diabetic ulcer of left heel (Acute) Hyponatremia (Acute) Otitis externa of left ear Chronic indwelling Hanna catheter (Chronic) Otitis externa Ambulatory dysfunction Severe aortic stenosis Chronic heart failure with preserved ejection fraction (HFpEF) Ear drum perforation Severe hearing loss Open wound of abdomen (Acute) Homeless (Acute) Edema of both legs Hypertension Paroxysmal atrial fibrillation Diabetes mellitus, type II (Chronic) Dyslipidemia Medical History Pyelonephritis Hydronephrosis, bilateral Asymptomatic hypertensive urgency Bilateral lower leg cellulitis Blister of finger Maggot infestation CESAR (acute kidney injury) Surgical History History of ear surgery age 19, mastoid H/O shoulder surgery S/P foot surgery, left Family History Brother Diabetes Social History Smoking Status: Former smoker Tobacco Type: Cigarettes Second Hand Exposure: No; Do You Dip or Chew Tobacco: No; Hx Alcohol Use: No Hx Substance Use: No Preferred Language: Czech Communication Ability: Impaired Communication Ability Comment: Hearing Loss. Visual Impairment: Limited Hearing Ability: Use of Hearing Aid Care Worker Required: No Beliefs That Will Affect Care: None marital status: Current Living Situation: Personal Care Facility Current Living Situation Comment: [facility] current occupational status: retired How many Children do You have: 3 Other Information That Helps Us Care for You: No Feels Safe at Home: Yes Safety Concerns: Feels Safe At This Time during the past year weight has: remained stable Dental Care, Regularly: No Physical Activity Frequency: Does not Exercise Assistive Devices: Wheelchair Allergies Allergies Allergy/AdvReac Type Severity Reaction Status Date / Time lisinopril Allergy Severe Swelling Verified 06/21/25 13:07 of Face/Lips/Tongue hydrochlorothiazide Allergy Unknown Unknown - Unverified 06/21/25 13:07 On file w/ [facility] Home Meds Home Medications Medication Instructions Recorded Confirmed insulin glargine 100 unit/mL (3 5 unit subcut HS 04/07/24 06/21/25 mL) subcutaneous pen (Lantus Solostar U-100 Insulin) Saccharomyces boulardii 250 mg 250 mg PO AMHS 03/15/25 06/21/25 capsule (Florastor) acetaminophen 325 mg tablet 650 mg PO Q6H PRN Fever greater 03/15/25 06/21/25 (Tylenol) than 100/Pain amitriptyline 10 mg tablet 30 mg PO HS 03/15/25 06/21/25 atorvastatin 40 mg tablet 40 mg PO HS 03/15/25 06/21/25 bisacodyl 10 mg rectal suppository 10 mg MT DAILY PRN Constipation 03/15/25 06/21/25 (Dulcolax (bisacodyl)) docusate sodium 100 mg tablet 100 mg PO AMHS 03/15/25 06/21/25 finasteride 5 mg tablet 5 mg PO QAM 03/15/25 06/21/25 glucagon 1 mg solution for 1 mg IM DIRECTED PRN 03/15/25 06/21/25 injection (Glucagon Emergency Kit) Hypoglycemia insulin lispro 100 unit/mL 1 sliding scale dose subcut 03/15/25 06/21/25 subcutaneous solution (Humalog USEASDIRECTD U-100 Insulin) insulin lispro 100 unit/mL 2 unit subcut TIDWMEAL 03/15/25 06/21/25 subcutaneous solution (Humalog U-100 Insulin) magnesium hydroxide 400 mg/5 mL 2,400 mg PO DAILY PRN Constipation 03/15/25 06/21/25 oral suspension (Milk of Magnesia) oxycodone 5 mg tablet 5 mg PO Q6H PRN Pain 03/15/25 06/21/25 pregabalin 75 mg capsule 75 mg PO AMHS 03/15/25 06/21/25 sennosides 8.6 mg-docusate sodium 1 tab PO AMHS constipation 03/15/25 06/21/25 50 mg tablet (Senokot-S) sodium phosphates 19 gram-7 118 ml MT DAILY PRN Constipation 03/15/25 06/21/25 gram/118 mL enema (Fleet Enema) tamsulosin 0.4 mg capsule 0.4 mg PO HS 03/15/25 06/21/25 Previous Rx's Medication Instructions Recorded polyethylene glycol 3350 17 gram 17 g PO DAILY PRN constipation #14 05/17/24 oral powder packet (Miralax) ea pantoprazole 40 mg tablet,delayed 40 mg PO BID #60 tabs 03/20/25 release apixaban 2.5 mg tablet (Eliquis) 2.5 mg PO BID #60 tabs 04/27/25 furosemide 20 mg tablet (Lasix) 20 mg PO DAILY #30 tabs 04/27/25 metoprolol succinate 50 mg 50 mg PO BID #60 tabs 04/27/25 tablet,extended release 24 hr Results & Data (ED) Vital Signs Vital Signs - 24 hr 07/03/25 12:00 07/03/25 12:06 07/03/25 12:58 Temperature 37.5 C Temperature Source Oral Pulse Rate 67 65 Pulse Rate [Apical] Pulse Strength Normal Pulse Strength [Apical] Respiratory Rate 22 Respiratory Effort / Characteristics Non-Labored Respiratory Depth Normal Respiratory Pattern Regular Blood Pressure 113/77 Blood Pressure [Left Arm] Blood Pressure Mean 89 Blood Pressure Mean [Left Arm] Blood Pressure Position [Left Arm] Pulse Oximetry 93 93 Oxygen Delivery Method Nasal Cannula Nasal Cannula Oxygen Flow Rate 2 3 Fraction of Inspired Oxygen Sepsis Recent Fever Within 48 Hours No Sepsis New/Unexplained Change in Mental Status No Sepsis Action Taken by Nursing No Action Required Oxygen Flow Rate - Titration Pulse Oximetry Post Tiitration 07/03/25 12:58 07/03/25 13:04 07/03/25 14:11 Temperature Temperature Source Pulse Rate 70 Pulse Rate [Apical] 73 79 Pulse Strength Pulse Strength [Apical] Normal Normal Respiratory Rate 24 24 74 H Respiratory Effort / Characteristics Non-Labored Spontaneous Non-Labored Spontaneous Respiratory Depth Normal Normal Respiratory Pattern Regular Regular Blood Pressure 108/75 Blood Pressure [Left Arm] 113/77 118/81 Blood Pressure Mean 76 Blood Pressure Mean [Left Arm] 89 93 Blood Pressure Position [Left Arm] Pulse Oximetry 93 96 95 Oxygen Delivery Method Nasal Cannula Nasal Cannula Nasal Cannula Oxygen Flow Rate 3 5 3 Fraction of Inspired Oxygen Sepsis Recent Fever Within 48 Hours Sepsis New/Unexplained Change in Mental Status Sepsis Action Taken by Nursing Oxygen Flow Rate - Titration Pulse Oximetry Post Tiitration 07/03/25 14:30 07/03/25 14:41 07/03/25 14:45 Temperature Temperature Source Pulse Rate 78 Pulse Rate [Apical] Pulse Strength Pulse Strength [Apical] Respiratory Rate 22 Respiratory Effort / Characteristics Respiratory Depth Respiratory Pattern Blood Pressure 131/91 Blood Pressure [Left Arm] 74/45 L Blood Pressure Mean 108 Blood Pressure Mean [Left Arm] 54 Blood Pressure Position [Left Arm] Pulse Oximetry 89 L 94 Oxygen Delivery Method Nasal Cannula Oxymask Oxymask Oxygen Flow Rate 5 10 Fraction of Inspired Oxygen Sepsis Recent Fever Within 48 Hours Sepsis New/Unexplained Change in Mental Status Sepsis Action Taken by Nursing Oxygen Flow Rate - Titration 10 Pulse Oximetry Post Tiitration 94 07/03/25 14:53 07/03/25 15:44 07/03/25 16:13 Temperature Temperature Source Pulse Rate 78 Pulse Rate [Apical] 80 78 Pulse Strength Pulse Strength [Apical] Respiratory Rate 20 18 20 Respiratory Effort / Characteristics Spontaneous Spontaneous Moaning Respiratory Depth Respiratory Pattern Blood Pressure 160/96 H Blood Pressure [Left Arm] Blood Pressure Mean 118 Blood Pressure Mean [Left Arm] Blood Pressure Position [Left Arm] Pulse Oximetry 96 97 100 Oxygen Delivery Method High Flow Nasal Cannula High Flow Nasal Cannula High Flow Nasal Cannula Oxygen Flow Rate 40 40 Fraction of Inspired Oxygen 80 80 Sepsis Recent Fever Within 48 Hours Sepsis New/Unexplained Change in Mental Status Sepsis Action Taken by Nursing Oxygen Flow Rate - Titration Pulse Oximetry Post Tiitration 07/03/25 16:21 07/03/25 16:34 07/03/25 16:39 Temperature Temperature Source Pulse Rate 73 77 85 Pulse Rate [Apical] Pulse Strength Pulse Strength [Apical] Respiratory Rate 20 22 Respiratory Effort / Characteristics Respiratory Depth Respiratory Pattern Blood Pressure 62/38 L 76/44 L Blood Pressure [Left Arm] Blood Pressure Mean 43 51 Blood Pressure Mean [Left Arm] Blood Pressure Position [Left Arm] Pulse Oximetry 97 98 Oxygen Delivery Method High Flow Nasal Cannula High Flow Nasal Cannula Oxygen Flow Rate Fraction of Inspired Oxygen Sepsis Recent Fever Within 48 Hours Sepsis New/Unexplained Change in Mental Status Sepsis Action Taken by Nursing Oxygen Flow Rate - Titration Pulse Oximetry Post Tiitration 07/03/25 16:39 07/03/25 16:57 07/03/25 17:20 Temperature Temperature Source Pulse Rate 76 Pulse Rate [Apical] 84 Pulse Strength Pulse Strength [Apical] Respiratory Rate 20 22 Respiratory Effort / Characteristics Respiratory Depth Respiratory Pattern Blood Pressure 76/44 L 102/46 L Blood Pressure [Left Arm] 93/61 L Blood Pressure Mean 51 49 Blood Pressure Mean [Left Arm] 71 Blood Pressure Position [Left Arm] Lying Pulse Oximetry 100 100 100 Oxygen Delivery Method High Flow Nasal Cannula High Flow Nasal Cannula High Flow Nasal Cannula Oxygen Flow Rate Fraction of Inspired Oxygen Sepsis Recent Fever Within 48 Hours Sepsis New/Unexplained Change in Mental Status Sepsis Action Taken by Nursing Oxygen Flow Rate - Titration Pulse Oximetry Post Tiitration Home Medications Current Medication List: was personally reviewed by me Laboratory Data Attestation: I reviewed the patient's lab results. 07/03/25 16:50 07/03/25 16:50 Lab Results 07/03/25 07/03/25 07/03/25 Range/Units 12:25 13:28 14:19 WBC 5.64 (4.8-10.8) K/ul RBC 4.53 L (4.70-6.10) M/uL Hgb 12.9 L (14.0-18.0) g/dl Hct 40.3 L (42.0-52.0) % MCV 89.0 (80.0-100.0) fL MCH 28.5 (25.0-34.0) pg MCHC 32.0 (32.0-36.0) g/dL RDW Std Deviation 41.8 (36.4-46.3) fL RDW Coeff of Scott 12.9 (11.5-14.5) % Plt Count 275 (130-400) K/uL MPV 10.4 (9.4-12.4) fL Immature Gran % (Auto) 0.2 % Neut % (Auto) 85.1 % Lymph % (Auto) 13.5 % Russell % (Auto) 0.5 % Eos % (Auto) 0.2 % Baso % (Auto) 0.5 % Neut # (Auto) 4.80 (1.40-6.50) K/uL Lymph # (Auto) 0.76 L (1.20-3.40) K/uL Russell # (Auto) 0.03 L (0.11-0.59) K/uL Eos # (Auto) 0.01 (0.00-0.50) K/uL Baso # (Auto) 0.03 (0.00-0.20) K/uL Immature Gran # (Auto) 0.01 (0.01-0.20) K/uL VBG pH (7.36-7.41) VBG pCO2 (38-50) mmHg VBG pO2 mmHg VBG HCO3 mmol/L VBG O2 Saturation % VBG Base Excess mEq/L Sodium 142 (136-145) mmol/L Potassium 5.5 H (3.5-5.1) mmol/L Chloride 100 (98-107) mmol/L Carbon Dioxide 29 (21-32) mmol/L Anion Gap 13 H (3-11) BUN 65 H (6-23) mg/dl Creatinine 4.20 H (0.6-1.4) mg/dl Est Cr Clr Drug Dosing 13.2 ml/min eGFR 13.68 BUN/Creatinine Ratio 15.5 (10-20) Glucose 241 H (70-99(Fasting)) mg/dl Lactate 8.0 H* 7.0 H* 5.6 H* (0.4-2.0) mmol/L Calcium 10.1 (8.6-10.3) mg/dl Magnesium 2.4 (1.7-2.4) mg/dl Total Bilirubin 0.7 (0.2-1.0) mg/dl Direct Bilirubin 0.1 (0-0.2) mg/dl AST 15 (13-39) U/L ALT 12 (7-52) U/L Alkaline Phosphatase 76 (34-104) U/L Troponin I High Sens 10.5 (0-20) pg/ml Total Protein 8.7 H (6.0-8.3) gm/dl Albumin 3.8 (3.4-5.0) gm/dl Globulin (2.5-4.0) gm/dl Albumin/Globulin Ratio (0.9-2) Procalcitonin 0.26 (0-0.5) ng/ml Urine Color Urine Appearance (Clear) Urine pH (4.5-7.5) Ur Specific Maybeury (1.000-1.030) Urine Protein (Negative) Urine Glucose (UA) (Negative) Urine Ketones (Negative) Urine Blood (Negative) Urine Nitrite (Negative) Urine Bilirubin (Negative) Urine Urobilinogen (Negative) Ur Leukocyte Esterase (Negative) Urine WBC (Auto) (0-5) /hpf Urine RBC (Auto) (0-2) /hpf U Hyaline Cast (Auto) (0-2) /lpf U Epithel Cells (Auto) (0-2) /hpf Urine Bacteria (Auto) (None Seen) Triple Phos Crystals (None Prsent) Urine Mucus (None Prsent) Urine Comment 07/03/25 07/03/25 07/03/25 Range/Units 15:14 16:00 16:50 WBC 23.81 H D (4.8-10.8) K/ul RBC 3.55 L (4.70-6.10) M/uL Hgb 10.2 L (14.0-18.0) g/dl Hct 31.4 L (42.0-52.0) % MCV 88.5 (80.0-100.0) fL MCH 28.7 (25.0-34.0) pg MCHC 32.5 (32.0-36.0) g/dL RDW Std Deviation 42.2 (36.4-46.3) fL RDW Coeff of Scott 13.1 (11.5-14.5) % Plt Count 239 (130-400) K/uL MPV 10.6 (9.4-12.4) fL Immature Gran % (Auto) 1.0 % Neut % (Auto) 95.5 % Lymph % (Auto) 2.6 % Russell % (Auto) 0.6 % Eos % (Auto) 0.0 % Baso % (Auto) 0.3 % Neut # (Auto) 22.74 H (1.40-6.50) K/uL Lymph # (Auto) 0.62 L (1.20-3.40) K/uL Russell # (Auto) 0.15 (0.11-0.59) K/uL Eos # (Auto) 0.01 (0.00-0.50) K/uL Baso # (Auto) 0.06 (0.00-0.20) K/uL Immature Gran # (Auto) 0.23 H (0.01-0.20) K/uL VBG pH 7.29 L 7.30 L (7.36-7.41) VBG pCO2 57 H 56 H (38-50) mmHg VBG pO2 22 31 mmHg VBG HCO3 27 28 mmol/L VBG O2 Saturation < 60.0 < 60.0 % VBG Base Excess 0 0.5 mEq/L Sodium 141 (136-145) mmol/L Potassium 4.7 (3.5-5.1) mmol/L Chloride 103 (98-107) mmol/L Carbon Dioxide 24 (21-32) mmol/L Anion Gap 14 H (3-11) BUN 71 H (6-23) mg/dl Creatinine 4.35 H (0.6-1.4) mg/dl Est Cr Clr Drug Dosing 12.7 ml/min eGFR 13.12 BUN/Creatinine Ratio 16.3 (10-20) Glucose 162 H (70-99(Fasting)) mg/dl Lactate 5.9 H* (0.4-2.0) mmol/L Calcium 8.7 (8.6-10.3) mg/dl Magnesium (1.7-2.4) mg/dl Total Bilirubin 0.6 (0.2-1.0) mg/dl Direct Bilirubin (0-0.2) mg/dl AST 13 (13-39) U/L ALT 8 (7-52) U/L Alkaline Phosphatase 61 (34-104) U/L Troponin I High Sens (0-20) pg/ml Total Protein 6.7 D (6.0-8.3) gm/dl Albumin 2.8 L (3.4-5.0) gm/dl Globulin 3.9 (2.5-4.0) gm/dl Albumin/Globulin Ratio 0.7 L (0.9-2) Procalcitonin (0-0.5) ng/ml Urine Color Red Urine Appearance Turbid A (Clear) Urine pH >= 9.0 H (4.5-7.5) Ur Specific Maybeury 1.011 (1.000-1.030) Urine Protein 3+ H (Negative) Urine Glucose (UA) Negative (Negative) Urine Ketones Negative (Negative) Urine Blood 3+ H (Negative) Urine Nitrite Positive A (Negative) Urine Bilirubin Negative (Negative) Urine Urobilinogen Negative (Negative) Ur Leukocyte Esterase 3+ H (Negative) Urine WBC (Auto) >50 H (0-5) /hpf Urine RBC (Auto) >20 H (0-2) /hpf U Hyaline Cast (Auto) 6-10 H (0-2) /lpf U Epithel Cells (Auto) 0-2 (0-2) /hpf Urine Bacteria (Auto) 4+ H (None Seen) Triple Phos Crystals Present A (None Prsent) Urine Mucus Present A (None Prsent) Urine Comment Administered Medications Phenylephrine HCl (Phenylephrine/Nss) 25 mg in 250 mls @ 140.4 mls/hr IV .Q1H47M [facility]; Protocol Stop: 08/02/25 17:29 Last Titration: 07/03/25 18:56 Dose: 3 mcg/kg/min, 140.4 mls/hr Documented By: GPF Co-signed By: TLM Titration: 07/03/25 18:51 Dose: 2.5 mcg/kg/min, 117 mls/hr Documented By: GPF Co-signed By: KJL Titration: 07/03/25 18:14 Dose: 1.8 mcg/kg/min, 84.2 mls/hr Documented By: QGV Co-signed By: CAP Titration: 07/03/25 18:01 Dose: 0.9 mcg/kg/min, 42.1 mls/hr Documented By: QGV Co-signed By: CAP Titration: 07/03/25 17:44 Dose: 0.7 mcg/kg/min, 32.8 mls/hr Documented By: QGV Co-signed By: CAP Admin: 07/03/25 17:32 Dose: 0.5 mcg/kg/min, 23.4 mls/hr Documented By: QGV Co-signed By: CAP Discontinued Medications Cefepime HCl (Maxipime 2000mg) 2,000 mg in 20 mls @ 5 mls/min IV NOW STA; Protocol Stop: 07/03/25 12:22 Last Admin: 07/03/25 12:49 Dose: 5 mls/min Documented By: GGG Sodium Chloride (Nss) 500 mls @ 999 mls/hr IV .Q31M ONE Stop: 07/03/25 13:17 Last Infusion: 07/03/25 13:25 Dose: Infused Documented By: Admin: 07/03/25 12:50 Dose: 999 mls/hr Documented By: GGG Sodium Chloride (Nss) 500 mls @ 999 mls/hr IV .Q31M ONE Stop: 07/03/25 15:29 Last Infusion: 07/03/25 18:52 Dose: Infused Documented By: Admin: 07/03/25 17:06 Dose: 999 mls/hr Documented By: QGV Lactated Ringer's (Lr) 500 mls @ 999 mls/hr IV .Q31M ONE Stop: 07/03/25 15:45 Last Infusion: 07/03/25 16:45 Dose: Infused Documented By: Admin: 07/03/25 15:56 Dose: 999 mls/hr Documented By: QGV Lactated Ringer's (Lr) 1,000 mls @ 999 mls/hr IV .Q1H1M ONE Stop: 07/03/25 17:36 Last Infusion: 07/03/25 18:03 Dose: Infused Documented By: Admin: 07/03/25 18:03 Dose: 999 mls/hr Documented By: QGV Piperacillin Sod/Tazobactam Sod (Zosyn) 4.5 gm in 100 mls @ 200 mls/hr IV NOW ONE; Protocol Stop: 07/03/25 17:16 Last Infusion: 07/03/25 18:51 Dose: Infused Documented By: Admin: 07/03/25 17:43 Dose: 200 mls/hr Documented By: QGV Norepinephrine Bitartrate (Levophed/D5w) 4 mg in 250 mls @ 14.625 mls/hr IV .Q17H6M [facility]; Protocol Stop: 08/02/25 16:59 Last Titration: 07/03/25 18:51 Dose: Infused Documented By: GPF Co-signed By: SHUKRI Titration: 07/03/25 17:29 Dose: 0.07 mcg/kg/min, 20.5 mls/hr Documented By: QGV Co-signed By: TIFFANY Admin: 07/03/25 17:07 Dose: 0.05 mcg/kg/min, 14.6 mls/hr Documented By: QGV Co-signed By: TIFFANY Noonan (Stat Iv Infusion Titration Per Protocol) 1 each N/A NOW STA Stop: 07/03/25 16:56 Last Admin: 07/03/25 17:44 Dose: 1 each Documented By: QGV Miscellaneous (Stat Iv Infusion Titration Per Protocol) 1 each N/A NOW STA Stop: 07/03/25 17:26 Last Admin: 07/03/25 17:44 Dose: 1 each Documented By: QGV Ondansetron HCl (Ondansetron Inj 2 Mg/Ml 2 Ml Vial) 4 mg IV NOW STA Stop: 07/03/25 14:33 Last Admin: 07/03/25 15:04 Dose: 4 mg Documented By: GGG Imaging Data Radiologist's Impression: Chest X-Ray 07/03/25 12:20 EXAM: Radiograph of the Chest 1 View INDICATION: Sepsis TECHNIQUE: Frontal view of the chest. COMPARISON: 04/25/2025 FINDINGS: Lungs and pleural spaces: No consolidation or pulmonary edema. No pleural effusion or pneumothorax. Heart: Stable large cardiac shadow. Mediastinum: Normal contour. Bones/joints: No fracture, erosion or dislocation. Soft tissues: No abnormality noted. No radiopaque foreign body noted. Upper abdomen: No abnormality noted. IMPRESSION: No acute cardiopulmonary disease. ACT 112: N/A Electronically signed by Omar Maria G 07-03-2025 13:13 PM Abdomen/Pelvis CT 07/03/25 13:19 EXAM: CT Abdomen and Pelvis Without Intravenous Contrast INDICATION: Urinary retention. TECHNIQUE: Axial computed tomography images of the abdomen and pelvis without intravenous contrast. Sagittal and coronal reformatted images were created and reviewed. This CT exam was performed using one or more of the following dose reduction techniques: automated exposure control, adjustment of the mA and/or kV according to patient size, and/or use of iterative reconstruction technique. COMPARISON: 08/12/2024 FINDINGS: Limitations: None. Lung bases: Atelectasis and/or scarring noted in the lung bases. Pleural space: No visualized pleural effusion or pneumothorax. Heart: No abnormality noted. Mediastinum: No abnormality noted. ABDOMEN: Liver: Lack of intravenous contrast limits detection of some masses. No abnormality noted. Gallbladder and bile ducts: Distended gallbladder. Pancreas: No pancreatic mass, calcification, inflammation or ductal dilation noted. Spleen: No significant abnormality noted. Adrenals: No significant abnormality noted. Kidneys and ureters: Mild right and mild to moderate left hydroureteronephrosis relatively sparing the distal right ureter. No stones. Mild symmetrical perinephric scarring noted. Stomach and bowel: Moderate amounts of formed stool in the rectum and sigmoid. No obstruction. PELVIS: Appendix: No findings to suggest acute appendicitis. Bladder: The urinary bladder is thickened and contains air and a small amount of blood. There is slight irregularity of wall thickening along the right lateral wall. Reproductive: No abnormalities noted. ABDOMEN and PELVIS: Intraperitoneal space: No free air. No significant fluid collection. Bones/joints: No acute changes. Soft tissues: There are bilateral fat-containing inguinal hernias. Vasculature: Atherosclerotic calcification of the aorta and branches. No aneurysm. Lymph nodes: No pathologically enlarged lymph nodes. IMPRESSION: 1. Cystitis with blood clots and slight irregularity of the right lateral wall. Neoplasm not completely excluded. 2. There is mild right and mild to moderate left hydroureteronephrosis possibly related to reflux. No obstructing stone noted. 3. Moderate amounts of formed stool in the rectosigmoid colon without obstruction. ACT 112: N/A Electronically signed by Maria G Nelson 07-03-2025 2:25 PM Chest X-Ray 07/03/25 14:32 Chest radiograph, one view History: Possible aspiration Comparison: Same-day Findings: Single AP view of the chest performed. Thin area of bandlike atelectasis in the mid left lung. No focal consolidation or pleural effusion. No pneumothorax. The cardiomediastinal silhouette is within normal limits. Normal pulmonary vascularity. No evidence for lymphadenopathy. No visualized bony or soft tissue abnormality. Impression: Normal chest radiograph Electronically signed by Arron Maria 07-03-2025 4:16 PM Discharge Plan Visit Data Chief Complaint: Catheter Replacement ED Provider: Leonides aGnn Discharge Problem: Septic shock, Acute and chronic respiratory failure with hypoxia Patient Disposition: Admitted As Inpatient Condition: Critical Discharge Instructions Interventions: ED Discharge Assessment Last Done: 07/03/25 17:57
[2025-07-03 12:42] LABS: Hematocrit (blood only) 40.3 % (42.0-52.0); Hemoglobin 12.9 g/dl (14.0-18.0); Immature Granulocytes # (auto) 0.01 K/uL (0.01-0.20); Immature Granulocytes % (auto) 0.2 %; Mean Corpuscular Hemoglobin 28.5 pg (25.0-34.0); Mean Corpuscular Volume 89.0 fL (80.0-100.0); Platelet Count 275 K/uL (130-400); RDW Standard Deviation 41.8 fL (36.4-46.3); Red Blood Count 4.53 M/uL (4.70-6.10); White Blood Count 5.64 K/ul (4.8-10.8)
[2025-07-03] MEDS: CEFEPIME 2000MG 2,000 MG/20 ML SYR IV STA (12:49)
[2025-07-03] MEDS: SODIUM CHLORIDE 0.9% 500 ML IV ONE ×2 (12:50→17:06)
[2025-07-03 12:59] LABS: Alanine Aminotransferase 12.0 U/L (7-52); Alkaline Phosphatase 76.0 U/L (34-104); Anion Gap 13.0 (3-11); Bilirubin,Total 0.7 mg/dl (0.2-1.0); Blood Urea Nitrogen 65.0 mg/dl (6-23); Calcium 10.1 mg/dl (8.6-10.3); Carbon Dioxide 29.0 mmol/L (21-32); Chloride 100.0 mmol/L (98-107); Creatinine Clr Calc Pharmacy 13.2 ml/min; Glucose 241.0 mg/dl (70-99(Fasting)); Magnesium 2.4 mg/dl (1.7-2.4); Potassium 5.5 mmol/L (3.5-5.1); Sodium 142.0 mmol/L (136-145); Total Protein 8.7 gm/dl (6.0-8.3)
--- NOTE | 2025-07-03 13:13 | XRay Report ---
EXAM: Radiograph of the Chest 1 View INDICATION: Sepsis TECHNIQUE: Frontal view of the chest. COMPARISON: 04/25/2025 FINDINGS: Lungs and pleural spaces: No consolidation or pulmonary edema. No pleural effusion or pneumothorax. Heart: Stable large cardiac shadow. Mediastinum: Normal contour. Bones/joints: No fracture, erosion or dislocation. Soft tissues: No abnormality noted. No radiopaque foreign body noted. Upper abdomen: No abnormality noted. IMPRESSION: No acute cardiopulmonary disease. ACT 112: N/A Electronically signed by Maria G Nelson 07-03-2025 13:13 PM
--- NOTE | 2025-07-03 14:25 | CT Scan Report ---
EXAM: CT Abdomen and Pelvis Without Intravenous Contrast INDICATION: Urinary retention. TECHNIQUE: Axial computed tomography images of the abdomen and pelvis without intravenous contrast. Sagittal and coronal reformatted images were created and reviewed. This CT exam was performed using one or more of the following dose reduction techniques: automated exposure control, adjustment of the mA and/or kV according to patient size, and/or use of iterative reconstruction technique. COMPARISON: 08/12/2024 FINDINGS: Limitations: None. Lung bases: Atelectasis and/or scarring noted in the lung bases. Pleural space: No visualized pleural effusion or pneumothorax. Heart: No abnormality noted. Mediastinum: No abnormality noted. ABDOMEN: Liver: Lack of intravenous contrast limits detection of some masses. No abnormality noted. Gallbladder and bile ducts: Distended gallbladder. Pancreas: No pancreatic mass, calcification, inflammation or ductal dilation noted. Spleen: No significant abnormality noted. Adrenals: No significant abnormality noted. Kidneys and ureters: Mild right and mild to moderate left hydroureteronephrosis relatively sparing the distal right ureter. No stones. Mild symmetrical perinephric scarring noted. Stomach and bowel: Moderate amounts of formed stool in the rectum and sigmoid. No obstruction. PELVIS: Appendix: No findings to suggest acute appendicitis. Bladder: The urinary bladder is thickened and contains air and a small amount of blood. There is slight irregularity of wall thickening along the right lateral wall. Reproductive: No abnormalities noted. ABDOMEN and PELVIS: Intraperitoneal space: No free air. No significant fluid collection. Bones/joints: No acute changes. Soft tissues: There are bilateral fat-containing inguinal hernias. Vasculature: Atherosclerotic calcification of the aorta and branches. No aneurysm. Lymph nodes: No pathologically enlarged lymph nodes. IMPRESSION: 1. Cystitis with blood clots and slight irregularity of the right lateral wall. Neoplasm not completely excluded. 2. There is mild right and mild to moderate left hydroureteronephrosis possibly related to reflux. No obstructing stone noted. 3. Moderate amounts of formed stool in the rectosigmoid colon without obstruction. ACT 112: N/A Electronically signed by Maria G Nelson 07-03-2025 2:25 PM
[2025-07-03] MEDS: ONDANSETRON INJ 2 MG/ML 2 ML VIAL IV STA (15:04)
--- NOTE | 2025-07-03 15:13 | History & Physical Report ---
Date of Service July 03, 2025 Assessment & Plan (1) Acute respiratory failure with hypoxia: (2) Acute kidney injury superimposed on CKD: (3) Paroxysmal atrial fibrillation: (4) Diabetes mellitus, type II: (5) Severe aortic stenosis: (6) Chronic indwelling Yee catheter: (7) Hypotension: Plan Pt is a 79 yo male with a past medical hx of severe aortic stenosis, HFpEF EF 55%, afib on chronic eliquis, DM on insulin, chronic indwelling yee due to chronic obstruction due to BPH, RLE BKA who presents from [facility] today for accidental yee removal with sudden acute respiratory failure in the ED with progressive hypotension refractory to IVF boluses requiring pressor support and ICU level of care. #AHRF - unclear etiology as initially in the ED pt was on small amount of NC oxygen but aspiration certainly possible especially given quick progression - CXR from before and after event seem similar - bedside US done by ED provider and seems to be volume depleted - blood cultures drawn - lactate very elevated 8 -> 7 .> 5.6 -> 5.9 s/p 1.5 L of fluid - treat empirically broad coverage zosyn + vanc, MRSA nares pending #Hypotension - progressive throughout time in the ED, BPs initially permissible but progressed to 60-70/30-40s - pt does notably have severe aortic stenosis so was trialed on IV fluid boluses [id number] with no meaningful improvement in blood pressures and thus transitioned to pressor support - suspect secondary to sepsis, possible urinary source #Aortic stenosis, severe #HFpEF - noted on echo in April 2025 - will redo echo - cardiology consulted #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 - baseline appears to be around Cr 3.0 the last few months - on admission Cr is 4.35 - IVF 1.5L given with caution given severe , pressor support to maintain adequate MAP - nephrology consulted #Hyperkalemia - initially K of 5.5, improved to 4.7 on repeat labs - suspect most likely related to volume contraction given pt's abnormally normal hemoglobin on admission also #Yee catheter, chronic #Hydronephrosis - pt initially here for replacement of yee, follows with urology outpatient and just had appt 2 weeks ago - yee was able to be replaced by ED staff with drainage of large amount of blood tinged urine and some clots - CT abd/pelvis did show mild to moderate hydronephrosis - urology consulted #Anemia, chronic - hemoglobin appears to be around 8.0-9.0 the last few months - no obvious source of bleeding aside from small amount of blood in the urine at time of admission - initially 12.9 -> 10.2, suspect this drop on admission is from volume contraction more than acute blood loss #DMT2 - will do SSI only to start - am HA1c #Afib - rate controlled - holding metoprolol given hypotension and inability to safely po - hold eliquis in the setting of CESAR, heparin instead On admission holding most PO meds as pt too altered to safely take them at this time. Diet: NPO given AMS, will hold off on pills for now VTE: heparin, holding home eliquis in the setting of CESAR and AMS History of Present Illness Chief Complaint: AHRF, yee placement Primary Care Provider: Isai Garcia III, Pt is a 79 yo male with a past medical hx of severe aortic stenosis, HFpEF EF 55%, afib on chronic eliquis, DM on insulin, chronic indwelling yee due to chronic obstruction due to BPH, RLE BKA who presents from [facility] today for accidental yee removal with sudden acute respiratory failure in the ED. Pt seen at the bedside for admission. He appears quite ill with increased resp effort and at the time did not respond meaningfully to voice or touch, did groan to sternal rub. Paperwork from facility notes DNR/DNI status. IVF bolus 500mL given with little improvement for a short time. There was notable difficulty with getting a BP for this pt but when BP was able to be gotten by automatic cuff it was 70/40s initially. Manual palpation BP was 80s. BP then shortly after by automatic cuff read 160/130s. Pt did appear to perk up with another 500 mL bolus of fluids, did start to mumble some words. Yee catheter placed which drained substantial amount of bloody urine with some clots. Reassessed later in the afternoon and once again ill appearing and no longer responding meaningfully to verbal or tactile stimuli with BPs again 60-70/30-40s during 3 readings with one reading taken in the R arm and 2 in the left with consistency across the arms and pressure maintained low with the completion of a third bolus of IV fluid 500 mL. Discussed case with attending and ED provider and pt was started on pressor support by the ED provider. Information Technology Manager was contacted for admit to the ICU. ED provider attempted to get ahold of 2 of the family members in the chart with no success. Allergies Allergy/AdvReac Type Severity Reaction Status Date / Time lisinopril Allergy Severe Swelling Verified 06/21/25 13:07 of Face/Lips/Tongue hydrochlorothiazide Allergy Unknown Unknown - Unverified 06/21/25 13:07 On file w/ [facility] Home Medications Medication Instructions Recorded Confirmed Type insulin glargine 100 unit/mL (3 5 unit subcut HS 04/07/24 06/21/25 History mL) subcutaneous pen (Lantus Solostar U-100 Insulin) polyethylene glycol 3350 17 gram 17 g PO DAILY PRN constipation #14 05/17/24 06/21/25 Rx oral powder packet (Miralax) ea Saccharomyces boulardii 250 mg 250 mg PO AMHS 03/15/25 06/21/25 History capsule (Florastor) acetaminophen 325 mg tablet 650 mg PO Q6H PRN Fever greater 03/15/25 06/21/25 History (Tylenol) than 100/Pain amitriptyline 10 mg tablet 30 mg PO HS 03/15/25 06/21/25 History atorvastatin 40 mg tablet 40 mg PO HS 03/15/25 06/21/25 History bisacodyl 10 mg rectal suppository 10 mg HI DAILY PRN Constipation 03/15/25 06/21/25 History (Dulcolax (bisacodyl)) docusate sodium 100 mg tablet 100 mg PO AMHS 03/15/25 06/21/25 History finasteride 5 mg tablet 5 mg PO QAM 03/15/25 06/21/25 History glucagon 1 mg solution for 1 mg IM DIRECTED PRN 03/15/25 06/21/25 History injection (Glucagon Emergency Kit) Hypoglycemia insulin lispro 100 unit/mL 1 sliding scale dose subcut 03/15/25 06/21/25 History subcutaneous solution (Humalog USEASDIRECTD U-100 Insulin) insulin lispro 100 unit/mL 2 unit subcut TIDWMEAL 03/15/25 06/21/25 History subcutaneous solution (Humalog U-100 Insulin) magnesium hydroxide 400 mg/5 mL 2,400 mg PO DAILY PRN Constipation 03/15/25 06/21/25 History oral suspension (Milk of Magnesia) oxycodone 5 mg tablet 5 mg PO Q6H PRN Pain 03/15/25 06/21/25 History pregabalin 75 mg capsule 75 mg PO AMHS 03/15/25 06/21/25 History sennosides 8.6 mg-docusate sodium 1 tab PO AMHS constipation 03/15/25 06/21/25 History 50 mg tablet (Senokot-S) sodium phosphates 19 gram-7 118 ml HI DAILY PRN Constipation 03/15/25 06/21/25 History gram/118 mL enema (Fleet Enema) tamsulosin 0.4 mg capsule 0.4 mg PO HS 03/15/25 06/21/25 History pantoprazole 40 mg tablet,delayed 40 mg PO BID #60 tabs 03/20/25 06/21/25 Rx release apixaban 2.5 mg tablet (Eliquis) 2.5 mg PO BID #60 tabs 04/27/25 06/21/25 Rx furosemide 20 mg tablet (Lasix) 20 mg PO DAILY #30 tabs 04/27/25 06/21/25 Rx metoprolol succinate 50 mg 50 mg PO BID #60 tabs 04/27/25 06/21/25 Rx tablet,extended release 24 hr Past Med/Surg History Problem List (Updated 07/03/25 @ 18:08 by Carolyn Cam DO) Hypotension UTI (urinary tract infection) due to urinary indwelling catheter (Chronic) Chronic retention of urine (Chronic) BPH w urinary obs/LUTS (Chronic) Acute heart failure with preserved ejection fraction Aortic stenosis Atrial fibrillation with rapid ventricular response (Acute) Acute CHF (Acute) Acute UTI (Acute) Acute respiratory failure with hypoxia (Acute) Acute kidney injury (CESAR) with acute tubular necrosis (ATN) Acute kidney injury superimposed on CKD S/P BKA (below knee amputation) unilateral Weakness (Acute) Symptomatic anemia (Acute) Catheter-associated urinary tract infection Diabetic foot ulcers Closed compression fracture of thoracic vertebra (Acute) Lymphedema (Chronic) Fall (Acute) Open wound of finger (Acute) Diabetic peripheral neuropathy associated with type 2 diabetes mellitus HTN (hypertension) Diabetic ulcer of right foot (Acute) Charcot foot due to diabetes mellitus Closed T12 fracture (Acute) Diabetic ulcer of left heel (Acute) Hyponatremia (Acute) Otitis externa of left ear Chronic indwelling Yee catheter (Chronic) Otitis externa Ambulatory dysfunction Severe aortic stenosis Chronic heart failure with preserved ejection fraction (HFpEF) Ear drum perforation Severe hearing loss Open wound of abdomen (Acute) Homeless (Acute) Edema of both legs Hypertension Paroxysmal atrial fibrillation Diabetes mellitus, type II (Chronic) Dyslipidemia Medical History (Updated 07/03/25 @ 18:08 by Carolyn Cam DO) Pyelonephritis Hydronephrosis, bilateral Asymptomatic hypertensive urgency Bilateral lower leg cellulitis Blister of finger Maggot infestation CESAR (acute kidney injury) Surgical History (Updated 04/29/25 @ 00:08 by Deepa Denise) History of ear surgery age 19, mastoid H/O shoulder surgery S/P foot surgery, left Family History Brother Diabetes Social History Smoking Status: Former smoker Tobacco Type: Cigarettes Second Hand Exposure: No; Do You Dip or Chew Tobacco: No; Hx Alcohol Use: No Hx Substance Use: No Preferred Language: Arabic Communication Ability: Impaired Communication Ability Comment: Hearing Loss. Visual Impairment: Limited Hearing Ability: Use of Hearing Aid Analyst Business Analysis Required: No Beliefs That Will Affect Care: None marital status: Current Living Situation: Personal Care Facility Current Living Situation Comment: [facility] current occupational status: retired How many Children do You have: 3 Feels Safe at Home: Yes during the past year weight has: remained stable Dental Care, Regularly: No Physical Activity Frequency: Does not Exercise Assistive Devices: Wheelchair Review of Systems Review of Systems: Unable to obtain due to AMS Physical Exam Physical Exam: General: Acutely ill appearing, respiratory distress HEENT: Normocephalic, dry oral mucosa, Cardio: Regular rate and rhythm, +murmur Resp: Breath sounds very coarse of the upper airway limiting accurate auscultation of lower airway GI: Soft and nontender, nondistended, bowel sounds active Skin: Pale, cool Results & Data Results & Data Vital Signs (Past 12 Hours) Vital Signs Temp Pulse Pulse Resp BP BP Pulse Ox 07/03/25 14:45 74/45 L 07/03/25 14:41 78 22 131/91 94 07/03/25 14:30 89 L 07/03/25 14:11 79 74 H 118/81 95 07/03/25 13:04 70 24 108/75 96 07/03/25 12:58 73 24 113/77 93 07/03/25 12:58 93 07/03/25 12:06 65 07/03/25 12:00 37.5 C 67 22 113/77 93 O2 Del Method O2 Flow Rate 07/03/25 14:45 07/03/25 14:41 Oxymask 10 07/03/25 14:30 Nasal Cannula, Oxymask 5 07/03/25 14:11 Nasal Cannula 3 07/03/25 13:04 Nasal Cannula 5 07/03/25 12:58 Nasal Cannula 3 07/03/25 12:58 Nasal Cannula 3 07/03/25 12:06 07/03/25 12:00 Nasal Cannula 2 Supervising Physician Co-Signing Physician Notes ATTESTATION I also saw the patient and confirmed diaz portions of the history and exam. I agree with the impression and plan in the resident documentation, and as summarized below. 79-year-old male with history of CHF and critical initially presented to the emergency department in transfer from nursing facility after his Yee catheter became dislodged. However, while in the emergency department, he acutely became hypoxic and hypotensive. Initial lab work was fairly unremarkable except for an elevated lactate level. He was given 3 successive 500 cc fluid boluses, and nursing after several attempts was able to reinsert Yee catheter with prompt evacuation of about 600 cc of bloody urine with clots. For short period of time thereafter, his hemodynamics seem to improve - there was a automated blood pressure showing systolic around 160, although this was short-lived and subsequent repeat blood pressures were in the 60s70s systolic. His respiratory status improved with high flow oxygen maintaining pulse oximetry readings at or close to 100%. His heart rate has been fairly stable, sinus in the mid 80s. Per paperwork transferred from the facility, he is a DO NOT RESUSCITATE. The emergency department physician has tried unsuccessfully to reach both the primary and secondary contacts. I personally discussed the case with the Emergency department physician and critical anesthesiologist and critical care IMPRESSION & PLAN Acute respiratory failure with hypoxia Hypotension Question Sepsis, likely urinary source Severe aortic stenosis 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 Overall thought is that he is hypovolemic based on exam plan bedside ultrasound. I suspect there is element hemoconcentration on his presenting labs as well. His critical complicates fluid management, but seems to be handling initial 1.5 L. Interestingly, no compensatory tachycardia on low-dose Toprol. No clear source, but urosepsis leading thought given his history. Admit to ICU Appreciate critical care consultation Pressure support adjusted to target MAP BiPAP if pulmonary status worsens Echocardiogram Broad-spectrum antibiotics pending cultures Consults to cardiology, nephrology Additional per resident documentation Resident Activity Tracking Resident Involvement: Resident Care Provided Care Provided: Adult Hospital Medicine (4) Diabetes mellitus, type II Diabetes mellitus complication detail: with foot ulcer Diabetes mellitus complication status: with skin complications Diabetes mellitus custodial insulin use: with custodial use Qualified Code(s): E11.621 - Type 2 diabetes mellitus with foot ulcer; L97.509 - Non-pressure chronic ulcer of other part of unspecified foot with unspecified severity; Z79.4 - ocean transportation intermediary (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
[2025-07-03 15:22] LABS: Base Excess VBG 0 mEq/L; HCO3 VBG 27 mmol/L; Oxygen Saturation VBG < 60.0 %; PCO2 VBG 57 mmHg (38-50); PO2 VBG 22 mmHg; pH VBG 7.29 (7.36-7.41)
[2025-07-03] MEDS: LACTATED RINGER'S 500 ML IV ONE (15:56)
--- NOTE | 2025-07-03 16:16 | XRay Report ---
Chest radiograph, one view History: Possible aspiration Comparison: Same-day Findings: Single AP view of the chest performed. Thin area of bandlike atelectasis in the mid left lung. No focal consolidation or pleural effusion. No pneumothorax. The cardiomediastinal silhouette is within normal limits. Normal pulmonary vascularity. No evidence for lymphadenopathy. No visualized bony or soft tissue abnormality. Impression: Normal chest radiograph Electronically signed by Arron Maria 07-03-2025 4:16 PM
[2025-07-03 16:53] LABS: Appearance Urine Turbid (Clear); Bacteria Urine Automated 4+ (None Seen); Epithelial Cell Urine Auto 0-2 /hpf (0-2); Glucose Urine UA Negative (Negative); RBC Urine Automated >20 /hpf (0-2); WBC Urine Automated >50 /hpf (0-5)
[2025-07-03 16:59] LABS: Base Excess VBG 0.5 mEq/L; HCO3 VBG 28 mmol/L; Oxygen Saturation VBG < 60.0 %; PCO2 VBG 56 mmHg (38-50); PO2 VBG 31 mmHg; pH VBG 7.30 (7.36-7.41)
[2025-07-03] MEDS: NOREPINEPHRINE/D5W 4 MG/250 ML PLCT IV SCH (17:07)
[2025-07-03 17:13] LABS: Hematocrit (blood only) 31.4 % (42.0-52.0); Hemoglobin 10.2 g/dl (14.0-18.0); Mean Corpuscular Hemoglobin 28.7 pg (25.0-34.0); Mean Corpuscular Volume 88.5 fL (80.0-100.0); Platelet Count 239 K/uL (130-400); RDW Standard Deviation 42.2 fL (36.4-46.3); Red Blood Count 3.55 M/uL (4.70-6.10); White Blood Count 23.81 K/ul (4.8-10.8)
[2025-07-03 17:30] LABS: Alanine Aminotransferase 8.0 U/L (7-52); Albumin Globulin Ratio 0.7 (0.9-2); Alkaline Phosphatase 61.0 U/L (34-104); Anion Gap 14.0 (3-11); Bilirubin,Total 0.6 mg/dl (0.2-1.0); Blood Urea Nitrogen 71.0 mg/dl (6-23); Calcium 8.7 mg/dl (8.6-10.3); Carbon Dioxide 24.0 mmol/L (21-32); Chloride 103.0 mmol/L (98-107); Creatinine Clr Calc Pharmacy 12.7 ml/min; Globulin 3.9 gm/dl (2.5-4.0); Glucose 162.0 mg/dl (70-99(Fasting)); Potassium 4.7 mmol/L (3.5-5.1); Sodium 141.0 mmol/L (136-145); Total Protein 6.7 gm/dl (6.0-8.3)
[2025-07-03] MEDS: PHENYLEPHRINE/NSS 25 MG/250 ML BAG IV SCH (17:32)
[2025-07-03 17:36] LABS: Immature Granulocytes # (auto) 0.23 K/uL (0.01-0.20); Immature Granulocytes % (auto) 1.0 %
[2025-07-03] MEDS: PIPERACILLIN/TAZOBACTAM 4.5 GM/100 ML BAG IV ONE (17:43)
[2025-07-03] MEDS: STAT IV Infusion **Titration per Protocol STA ×2 (17:44)
[2025-07-03] MEDS: LACTATED RINGER'S 1,000 ML IV ONE (18:03)
[2025-07-03] MEDS ORDERED: GLUCOSE 40% GEL 15 GM TUBE PO PRN (18:49)
[2025-07-03] MEDS ORDERED: GLUCAGON FOR INJ 1 MG VIAL SQ PRN (18:49)
[2025-07-03] MEDS ORDERED: DEXTROSE 50% 50 ML SYRINGE IV PRN (18:49)
[2025-07-03] MEDS ORDERED: CARBOHYDRATES FOR HYPOGLYCEMIA PO PRN (18:49)
[2025-07-03] MEDS ORDERED: GLUCOSE 10 TAB/TUBE PO PRN (18:49)
[2025-07-03] MEDS ORDERED: STAT IV Infusion **Titration per Protocol STA (18:59)
[2025-07-03] MEDS: VASOPRESSIN 20 UNITS in SODIUM CHLORIDE 0.9% 100 ML IV SCH (19:10)
--- NOTE | 2025-07-03 20:00 | Critical Care Consultation ---
Date of Consultation July 03, 2025 Assessment & Plan (1) Shock: (2) Acute kidney injury superimposed on CKD: (3) Diabetes mellitus, type II: (4) Severe aortic stenosis: (5) Chronic retention of urine: Plan Reason Critically Ill: 79 YOM presents to ICU following rapid onset of shock and hypoxia, no requiring vasopressor support. Concern for distributive and/or cardiogenic shock. Neuro - Encephalopathy acute [facility] ICU: ANDREW - Metabolic encephalopathy likely secondary to hypoperfusion at this time he is too hemodynamically unstable to obtain head CT- if we are able to stabilize could consider for evaluation for acute process - Continue with supportive care Cardiac - Shock distributive vs. cardiogenic or combination of both, Severe Aortic Stenosis, Afib with RVR - Patient with acute decline while getting worked up in ER- initially without response to vasopressors- With the rapidity of this decline it is difficult to say at this time if he is septic causing his failure or worsening of his sever aortic stenosis that has now possibly progressed. This carries combination of shock increases patient mortality with already severe . - on arrival to the ICU he was with BPs 70s/40s with escalation of his ASTRID required, second vasopressor initiated in form of vasopressin, and started on 500ml fluid challenge over 1 hour - Admitting service spoke with cardiology telephone installer- Dr. Starr- he will be in to evaluate the patient and STAT ECHO being obtained- appreciate assistance- He does currently not favor inotropic or possible mechanical support at this time. - Previous ECHO was with preseverd EF- and was also performed with HR in 120s afib- as above pend current ECHO as he is rate controlled and appears in NSR. - Bedside POCUS obtained- possibly reduced function no pericardial effusion- as above await STAT ECHO - IJ's are collapsing with inspiration and IVC collapsable- fluid challenge as above and then initiate LR at 115ml/hour - ASTRID for hemodynamic support with goal of avoiding exacerbating tachycardia or afib with RVR - If AFIB returns pending EF would consider esmolol or amiodarone for rate control - goal will be to optimize HR, optimize preload, and maintain afterload - BNP not significantly elevated - Lactate currently downtrending - Distributive shock - continue abx, as above volume challenge, follow UO and end organ perfusion labs, bedside POCUS for eval of volume status as needed - Will rule out other possible causes - obstructive- no Pericardial effusion noted on POCUS, Obtain lower extremity duplex eval for DVT for poss. PE- unlikely as he is on Eliquis and has responded well to oxygen therapy - Unsure of last dose administration of his Eliquis- will hold this for now and if unable to restart in am- consider heparin infusion during acute illness while in ICU and with elevated AIRCRAFT PILOT. Respiratory - Acute hypoxic respiratory failure - Reported at same time as hypotension - so likely secondary to hypoperfusion- as above he has responded well to oxygen therapy and will attempt to titrate down - he is without milagro pulmonary edema as well as no opacification to suggest pna or an aspiration event - Gap 14 likely secondary to increased renal function GI - Constipation - acute on chronic issue- consider suppository RENAL/LYTES - 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 - At this time likely pre-renal as above difficult to assess whether secondary to volume and or cardiogenic in nature - support with IVF and optimization of MAPS - Further management pending clinical course - Chronic Yee with BPH obstruction - trend bladder scans with UO eval for possible clotting of Yee with hematuria - CT scan questionable area with possible concern for a bladder mass- follows with urology- consider consultation once stable ENDO - DMII - ICU hyperglycemic protocol - TSH mildly elevated - Random cortisol >60 HEME - chronic anemia - trend - transfuse for active bleeding, symptomatic, or HGB <8.0 ID - Septic shock possibly secondary to urine - continue abx - Await blood and urine cx - supportive care as above - follow perfusion status as above - WBC initially 5 on presentation following replacement of Yee and stress- WBC increased, PCT negative, no obstructing stone noted on CT scan and no other acute abdominal process noted. LINES/IV ACCESS - PIV, Michelle, CVL, Yee Continue use of these lines DVT PROPHYLAXIS - SCDS, anticoagulation on hold, restart some form of chemoprophylaxis/stroke reduction in am DISPO: ICU while requiring vasopressor support I have personally spent 65 minutes of critical care time in the direct management of this patient. This is a life/limb threatening event. This includes time spent evaluating patient, direct bedside care, chart review, placing orders, interpretation of diagnostic studies, discussion with consultants, patient, and family members, as well as other required patient management activities. This time is exclusive of all separately billable procedures, and teaching time and separate from and in addition to any other critical care service time. Thank you for allowing us to participate in the care of this patient. Please refer to my attending physician's documentation for any further recommendations. Supervising Physician Co-Signing Physician Notes Patient seen and examined. EMR reviewed. Discussed with critical care RHONDA as well as bedside nurse. Agree with assessment plan as noted. For additional details please refer to my progress note from 07/04/2025 History of Present Illness Reason for Consultation: shock unspefiied Requesting Physician: Anton August DO Attending Physician: Anton August DO History of Present Illness 79 YOM with medical history of: Afib with RVR, Chronic anticoagulation with reduced dose Eliquis, HfpEF, Severe Aortic Stenosis, 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, BPH with chronic Yee secondary to hydroureter obstructive pathology, GERD. 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 Patient presents to the ER today for catheter displacement as well as concern for patient seeming "less responsive". Patient appeared to be doing well on arrival and prior to replacing his yee, he became hypoxic as well as hypotensive. He was initiated on sepsis pathway with blood cultures, UA, and volume resuscitation with 500 ml aliquots. His blood pressure did not change much with volume challenge and he was initiated on LEVOphed. He had CXR completed twice with no acute opacities, as well as CT abd/pelvis completed. Patient had repeat labs performed as well as ABG, without hypoxia and mild hypercarbia, which appears at his baseline from previous hospitalizations. His urine appers to be infective still. With the rapidity of this decline it is difficult to say at this time if he is septic causing his failure or worsening of his sever aortic stenosis that has now possibly progressed. I have spoke with the admitting service and asked for cardiology discussion in regards to further evaluation if he continues to not respond well, to include possible evaluation for mechanical or inotropic support. Family has not been able to be reached. Patient will require arterial line and likely central line for multiple vasoactive medications CODE: DNR/DNI Allergies Allergy/AdvReac Type Severity Reaction Status Date / Time lisinopril Allergy Severe Swelling Verified 06/21/25 13:07 of Face/Lips/Tongue hydrochlorothiazide Allergy Unknown Unknown - Unverified 06/21/25 13:07 On file w/ [facility] Home Medications Medication Instructions Recorded Confirmed Type insulin glargine 100 unit/mL (3 5 unit subcut HS 04/07/24 06/21/25 History mL) subcutaneous pen (Lantus Solostar U-100 Insulin) polyethylene glycol 3350 17 gram 17 g PO DAILY PRN constipation #14 05/17/24 06/21/25 Rx oral powder packet (Miralax) ea Saccharomyces boulardii 250 mg 250 mg PO AMHS 03/15/25 06/21/25 History capsule (Florastor) acetaminophen 325 mg tablet 650 mg PO Q6H PRN Fever greater 03/15/25 06/21/25 History (Tylenol) than 100/Pain amitriptyline 10 mg tablet 30 mg PO HS 03/15/25 06/21/25 History atorvastatin 40 mg tablet 40 mg PO HS 03/15/25 06/21/25 History bisacodyl 10 mg rectal suppository 10 mg KS DAILY PRN Constipation 03/15/25 06/21/25 History (Dulcolax (bisacodyl)) docusate sodium 100 mg tablet 100 mg PO AMHS 03/15/25 06/21/25 History finasteride 5 mg tablet 5 mg PO QAM 03/15/25 06/21/25 History glucagon 1 mg solution for 1 mg IM DIRECTED PRN 03/15/25 06/21/25 History injection (Glucagon Emergency Kit) Hypoglycemia insulin lispro 100 unit/mL 1 sliding scale dose subcut 03/15/25 06/21/25 History subcutaneous solution (Humalog USEASDIRECTD U-100 Insulin) insulin lispro 100 unit/mL 2 unit subcut TIDWMEAL 03/15/25 06/21/25 History subcutaneous solution (Humalog U-100 Insulin) magnesium hydroxide 400 mg/5 mL 2,400 mg PO DAILY PRN Constipation 03/15/25 06/21/25 History oral suspension (Milk of Magnesia) oxycodone 5 mg tablet 5 mg PO Q6H PRN Pain 03/15/25 06/21/25 History pregabalin 75 mg capsule 75 mg PO AMHS 03/15/25 06/21/25 History sennosides 8.6 mg-docusate sodium 1 tab PO AMHS constipation 03/15/25 06/21/25 History 50 mg tablet (Senokot-S) sodium phosphates 19 gram-7 118 ml KS DAILY PRN Constipation 03/15/25 06/21/25 History gram/118 mL enema (Fleet Enema) tamsulosin 0.4 mg capsule 0.4 mg PO HS 03/15/25 06/21/25 History pantoprazole 40 mg tablet,delayed 40 mg PO BID #60 tabs 03/20/25 06/21/25 Rx release apixaban 2.5 mg tablet (Eliquis) 2.5 mg PO BID #60 tabs 04/27/25 06/21/25 Rx furosemide 20 mg tablet (Lasix) 20 mg PO DAILY #30 tabs 04/27/25 06/21/25 Rx metoprolol succinate 50 mg 50 mg PO BID #60 tabs 04/27/25 06/21/25 Rx tablet,extended release 24 hr Patient History Medical History Pyelonephritis Hydronephrosis, bilateral Asymptomatic hypertensive urgency Bilateral lower leg cellulitis Blister of finger Maggot infestation CESAR (acute kidney injury) Surgical History History of ear surgery age 19, mastoid H/O shoulder surgery S/P foot surgery, left Family History Brother Diabetes Social History Smoking Status: Former smoker Tobacco Type: Cigarettes Second Hand Exposure: No; Do You Dip or Chew Tobacco: No; Hx Alcohol Use: No Hx Substance Use: No Preferred Language: Indonesian Communication Ability: Impaired Communication Ability Comment: Hearing Loss. Visual Impairment: Limited Hearing Ability: Use of Hearing Aid Cat Driver Required: No Beliefs That Will Affect Care: None marital status: Current Living Situation: Personal Care Facility Current Living Situation Comment: [facility] current occupational status: retired How many Children do You have: 3 Other Information That Helps Us Care for You: No Feels Safe at Home: Yes Safety Concerns: Feels Safe At This Time during the past year weight has: remained stable Dental Care, Regularly: No Physical Activity Frequency: Does not Exercise Assistive Devices: Wheelchair Review of Systems Review of Systems: unable to be performed secondary to encephalopathy Physical Exam Physical Exam: PHYSICAL EXAM: General: awake, encephalopathic Head: Normocephalic, atraumatic ENT: PERRLA, mucous membranes dry Neuro: AAO x 1, garbled speech, moves upper extremities, but does not follow commands Chest: equal rise and fall of the chest, mild accessory muscle use, expiratory wheeze Cardiac: Regular rate and rhythm, telemetry reviewed- NSR with PAC, skin cool and clammy, pulses 2+, no edema, Grade III systolic high pitched murumur RSB GI: NABS x 4 quadrants, soft, nontender to palpation, no rebound, guarding or tenderness : Yee to gravity draining red tinged urine Results & Data Results & Data Vital Signs (Past 12 Hours) Vital Signs Temp Pulse Pulse Resp BP BP Pulse Ox 07/03/25 19:42 70 18 100 07/03/25 19:12 77 15 100 07/03/25 19:11 79/48 L 07/03/25 19:09 76 14 100 07/03/25 19:00 77 15 07/03/25 19:00 76/32 L 07/03/25 18:51 54/37 L 07/03/25 18:48 76 20 100 07/03/25 18:46 63/39 L 07/03/25 18:45 74 18 100 07/03/25 18:43 78 20 97 07/03/25 18:42 77 14 98 07/03/25 18:41 07/03/25 18:41 37.1 C 83 24 99 07/03/25 18:41 07/03/25 18:36 96 07/03/25 17:20 84 22 93/61 L 100 07/03/25 16:57 76 20 102/46 L 100 07/03/25 16:39 76/44 L 100 07/03/25 16:39 85 22 76/44 L 98 07/03/25 16:34 77 20 62/38 L 97 07/03/25 16:21 73 07/03/25 16:13 78 20 100 07/03/25 15:44 78 18 160/96 H 97 07/03/25 14:53 80 20 96 07/03/25 14:45 74/45 L 07/03/25 14:41 78 22 131/91 94 07/03/25 14:30 89 L 07/03/25 14:11 79 74 H 118/81 95 07/03/25 13:04 70 24 108/75 96 07/03/25 12:58 73 24 113/77 93 07/03/25 12:58 93 07/03/25 12:06 65 07/03/25 12:00 37.5 C 67 22 113/77 93 O2 Del Method O2 Del Method O2 Flow Rate FiO2 07/03/25 19:42 High Flow Nasal Cannula 40 70 07/03/25 19:12 07/03/25 19:11 07/03/25 19:09 07/03/25 19:00 07/03/25 19:00 07/03/25 18:51 07/03/25 18:48 07/03/25 18:46 07/03/25 18:45 07/03/25 18:43 High Flow Nasal Cannula 40 70 07/03/25 18:42 07/03/25 18:41 High Flow Nasal Cannula 40 70 07/03/25 18:41 High Flow Nasal Cannula 07/03/25 18:41 High Flow Nasal Cannula 07/03/25 18:36 07/03/25 17:20 High Flow Nasal Cannula 07/03/25 16:57 High Flow Nasal Cannula 07/03/25 16:39 High Flow Nasal Cannula 07/03/25 16:39 High Flow Nasal Cannula 07/03/25 16:34 High Flow Nasal Cannula 07/03/25 16:21 07/03/25 16:13 High Flow Nasal Cannula 40 80 07/03/25 15:44 High Flow Nasal Cannula 07/03/25 14:53 High Flow Nasal Cannula 40 80 07/03/25 14:45 07/03/25 14:41 Oxymask 10 07/03/25 14:30 Nasal Cannula, Oxymask 5 07/03/25 14:11 Nasal Cannula 3 07/03/25 13:04 Nasal Cannula 5 07/03/25 12:58 Nasal Cannula 3 07/03/25 12:58 Nasal Cannula 3 07/03/25 12:06 07/03/25 12:00 Nasal Cannula 2 Laboratory Results Abnormal lab results 07/03/25 07/03/25 07/03/25 Range/Units 12:25 13:28 14:19 WBC (4.8-10.8) K/ul RBC 4.53 L (4.70-6.10) M/uL Hgb 12.9 L (14.0-18.0) g/dl Hct 40.3 L (42.0-52.0) % Neut # (Auto) (1.40-6.50) K/uL Lymph # (Auto) 0.76 L (1.20-3.40) K/uL Woodson # (Auto) 0.03 L (0.11-0.59) K/uL Immature Gran # (Auto) (0.01-0.20) K/uL PT (9.0-12.0) Seconds INR (0.9-1.1) VBG pH (7.36-7.41) VBG pCO2 (38-50) mmHg Potassium 5.5 H (3.5-5.1) mmol/L Anion Gap 13 H (3-11) BUN 65 H (6-23) mg/dl Creatinine 4.20 H (0.6-1.4) mg/dl Glucose 241 H (70-99(Fasting)) mg/dl Lactate 8.0 H* 7.0 H* 5.6 H* (0.4-2.0) mmol/L B-Natriuretic Peptide (0-100) pg/ml Total Protein 8.7 H (6.0-8.3) gm/dl Albumin (3.4-5.0) gm/dl Albumin/Globulin Ratio (0.9-2) TSH (0.300-4.500) uIu/ml Urine Appearance (Clear) Urine pH (4.5-7.5) Urine Protein (Negative) Urine Blood (Negative) Urine Nitrite (Negative) Ur Leukocyte Esterase (Negative) Urine WBC (Auto) (0-5) /hpf Urine RBC (Auto) (0-2) /hpf U Hyaline Cast (Auto) (0-2) /lpf Urine Bacteria (Auto) (None Seen) Triple Phos Crystals (None Prsent) Urine Mucus (None Prsent) 07/03/25 07/03/25 07/03/25 Range/Units 15:14 16:00 16:50 WBC 23.81 H D (4.8-10.8) K/ul RBC 3.55 L (4.70-6.10) M/uL Hgb 10.2 L (14.0-18.0) g/dl Hct 31.4 L (42.0-52.0) % Neut # (Auto) 22.74 H (1.40-6.50) K/uL Lymph # (Auto) 0.62 L (1.20-3.40) K/uL Woodson # (Auto) (0.11-0.59) K/uL Immature Gran # (Auto) 0.23 H (0.01-0.20) K/uL PT (9.0-12.0) Seconds INR (0.9-1.1) VBG pH 7.29 L 7.30 L (7.36-7.41) VBG pCO2 57 H 56 H (38-50) mmHg Potassium (3.5-5.1) mmol/L Anion Gap 14 H (3-11) BUN 71 H (6-23) mg/dl Creatinine 4.35 H (0.6-1.4) mg/dl Glucose 162 H (70-99(Fasting)) mg/dl Lactate 5.9 H* (0.4-2.0) mmol/L B-Natriuretic Peptide (0-100) pg/ml Total Protein (6.0-8.3) gm/dl Albumin 2.8 L (3.4-5.0) gm/dl Albumin/Globulin Ratio 0.7 L (0.9-2) TSH (0.300-4.500) uIu/ml Urine Appearance Turbid A (Clear) Urine pH >= 9.0 H (4.5-7.5) Urine Protein 3+ H (Negative) Urine Blood 3+ H (Negative) Urine Nitrite Positive A (Negative) Ur Leukocyte Esterase 3+ H (Negative) Urine WBC (Auto) >50 H (0-5) /hpf Urine RBC (Auto) >20 H (0-2) /hpf U Hyaline Cast (Auto) 6-10 H (0-2) /lpf Urine Bacteria (Auto) 4+ H (None Seen) Triple Phos Crystals Present A (None Prsent) Urine Mucus Present A (None Prsent) 07/03/25 Range/Units 19:15 WBC (4.8-10.8) K/ul RBC (4.70-6.10) M/uL Hgb (14.0-18.0) g/dl Hct (42.0-52.0) % Neut # (Auto) (1.40-6.50) K/uL Lymph # (Auto) (1.20-3.40) K/uL Woodson # (Auto) (0.11-0.59) K/uL Immature Gran # (Auto) (0.01-0.20) K/uL PT 13.2 H (9.0-12.0) Seconds INR 1.2 H (0.9-1.1) VBG pH (7.36-7.41) VBG pCO2 (38-50) mmHg Potassium (3.5-5.1) mmol/L Anion Gap (3-11) BUN (6-23) mg/dl Creatinine (0.6-1.4) mg/dl Glucose (70-99(Fasting)) mg/dl Lactate 2.8 H* (0.4-2.0) mmol/L B-Natriuretic Peptide 224 H (0-100) pg/ml Total Protein (6.0-8.3) gm/dl Albumin (3.4-5.0) gm/dl Albumin/Globulin Ratio (0.9-2) TSH 6.035 H (0.300-4.500) uIu/ml Urine Appearance (Clear) Urine pH (4.5-7.5) Urine Protein (Negative) Urine Blood (Negative) Urine Nitrite (Negative) Ur Leukocyte Esterase (Negative) Urine WBC (Auto) (0-5) /hpf Urine RBC (Auto) (0-2) /hpf U Hyaline Cast (Auto) (0-2) /lpf Urine Bacteria (Auto) (None Seen) Triple Phos Crystals (None Prsent) Urine Mucus (None Prsent) Diagnostic Findings Chest X-Ray 07/03/25 12:20 EXAM: Radiograph of the Chest 1 View INDICATION: Sepsis TECHNIQUE: Frontal view of the chest. COMPARISON: 04/25/2025 FINDINGS: Lungs and pleural spaces: No consolidation or pulmonary edema. No pleural effusion or pneumothorax. Heart: Stable large cardiac shadow. Mediastinum: Normal contour. Bones/joints: No fracture, erosion or dislocation. Soft tissues: No abnormality noted. No radiopaque foreign body noted. Upper abdomen: No abnormality noted. IMPRESSION: No acute cardiopulmonary disease. ACT 112: N/A Electronically signed by Maria G Nelson 07-03-2025 13:13 PM Abdomen/Pelvis CT 07/03/25 13:19 EXAM: CT Abdomen and Pelvis Without Intravenous Contrast INDICATION: Urinary retention. TECHNIQUE: Axial computed tomography images of the abdomen and pelvis without intravenous contrast. Sagittal and coronal reformatted images were created and reviewed. This CT exam was performed using one or more of the following dose reduction techniques: automated exposure control, adjustment of the mA and/or kV according to patient size, and/or use of iterative reconstruction technique. COMPARISON: 08/12/2024 FINDINGS: Limitations: None. Lung bases: Atelectasis and/or scarring noted in the lung bases. Pleural space: No visualized pleural effusion or pneumothorax. Heart: No abnormality noted. Mediastinum: No abnormality noted. ABDOMEN: Liver: Lack of intravenous contrast limits detection of some masses. No abnormality noted. Gallbladder and bile ducts: Distended gallbladder. Pancreas: No pancreatic mass, calcification, inflammation or ductal dilation noted. Spleen: No significant abnormality noted. Adrenals: No significant abnormality noted. Kidneys and ureters: Mild right and mild to moderate left hydroureteronephrosis relatively sparing the distal right ureter. No stones. Mild symmetrical perinephric scarring noted. Stomach and bowel: Moderate amounts of formed stool in the rectum and sigmoid. No obstruction. PELVIS: Appendix: No findings to suggest acute appendicitis. Bladder: The urinary bladder is thickened and contains air and a small amount of blood. There is slight irregularity of wall thickening along the right lateral wall. Reproductive: No abnormalities noted. ABDOMEN and PELVIS: Intraperitoneal space: No free air. No significant fluid collection. Bones/joints: No acute changes. Soft tissues: There are bilateral fat-containing inguinal hernias. Vasculature: Atherosclerotic calcification of the aorta and branches. No aneurysm. Lymph nodes: No pathologically enlarged lymph nodes. IMPRESSION: 1. Cystitis with blood clots and slight irregularity of the right lateral wall. Neoplasm not completely excluded. 2. There is mild right and mild to moderate left hydroureteronephrosis possibly related to reflux. No obstructing stone noted. 3. Moderate amounts of formed stool in the rectosigmoid colon without obstruction. ACT 112: N/A Electronically signed by Maria G Nelson 07-03-2025 2:25 PM Chest X-Ray 07/03/25 14:32 Chest radiograph, one view History: Possible aspiration Comparison: Same-day Findings: Single AP view of the chest performed. Thin area of bandlike atelectasis in the mid left lung. No focal consolidation or pleural effusion. No pneumothorax. The cardiomediastinal silhouette is within normal limits. Normal pulmonary vascularity. No evidence for lymphadenopathy. No visualized bony or soft tissue abnormality. Impression: Normal chest radiograph Electronically signed by Arron Maria 07-03-2025 4:16 PM Medications Administered Home Medications insulin glargine 100 unit/mL (3 mL) subcutaneous pen (Lantus Solostar U-100 Insulin) 5 unit subcut HS 04/07/24 [History Confirmed 06/21/25] polyethylene glycol 3350 17 gram oral powder packet (Miralax) 17 g PO DAILY PRN constipation #14 ea 05/17/24 [Rx Confirmed 06/21/25] Saccharomyces boulardii 250 mg capsule (Florastor) 250 mg PO AMHS 03/15/25 [History Confirmed 06/21/25] acetaminophen 325 mg tablet (Tylenol) 650 mg PO Q6H PRN Fever greater than 100/Pain 03/15/25 [History Confirmed 06/21/25] amitriptyline 10 mg tablet 30 mg PO HS 03/15/25 [History Confirmed 06/21/25] atorvastatin 40 mg tablet 40 mg PO HS 03/15/25 [History Confirmed 06/21/25] bisacodyl 10 mg rectal suppository (Dulcolax (bisacodyl)) 10 mg KS DAILY PRN Constipation 03/15/25 [History Confirmed 06/21/25] docusate sodium 100 mg tablet 100 mg PO AMHS 03/15/25 [History Confirmed 06/21/25] finasteride 5 mg tablet 5 mg PO QAM 03/15/25 [History Confirmed 06/21/25] glucagon 1 mg solution for injection (Glucagon Emergency Kit) 1 mg IM DIRECTED PRN Hypoglycemia 03/15/25 [History Confirmed 06/21/25] insulin lispro 100 unit/mL subcutaneous solution (Humalog U-100 Insulin) 1 sliding scale dose subcut USEASDIRECTD 03/15/25 [History Confirmed 06/21/25] insulin lispro 100 unit/mL subcutaneous solution (Humalog U-100 Insulin) 2 unit subcut TIDWMEAL 03/15/25 [History Confirmed 06/21/25] magnesium hydroxide 400 mg/5 mL oral suspension (Milk of Magnesia) 2,400 mg PO DAILY PRN Constipation 03/15/25 [History Confirmed 06/21/25] oxycodone 5 mg tablet 5 mg PO Q6H PRN Pain 03/15/25 [History Confirmed 06/21/25] pregabalin 75 mg capsule 75 mg PO AMHS 03/15/25 [History Confirmed 06/21/25] sennosides 8.6 mg-docusate sodium 50 mg tablet (Senokot-S) 1 tab PO AMHS constipation 03/15/25 [History Confirmed 06/21/25] sodium phosphates 19 gram-7 gram/118 mL enema (Fleet Enema) 118 ml KS DAILY PRN Constipation 03/15/25 [History Confirmed 06/21/25] tamsulosin 0.4 mg capsule 0.4 mg PO HS 03/15/25 [History Confirmed 06/21/25] pantoprazole 40 mg tablet,delayed release 40 mg PO BID #60 tabs 03/20/25 [Rx Confirmed 06/21/25] apixaban 2.5 mg tablet (Eliquis) 2.5 mg PO BID #60 tabs 04/27/25 [Rx Confirmed 06/21/25] furosemide 20 mg tablet (Lasix) 20 mg PO DAILY #30 tabs 04/27/25 [Rx Confirmed 06/21/25] metoprolol succinate 50 mg tablet,extended release 24 hr 50 mg PO BID #60 tabs 04/27/25 [Rx Confirmed 06/21/25] Active Medications Dextrose (Dextrose 50% 50 Ml Syringe) 25 - 50 ml IV UD PRN; Protocol PRN Reason: Hypoglycemia Protocol Stop: 08/02/25 18:48 Glucagon (Glucagon For Inj 1 Mg Vial) 1 mg SQ UD PRN; Protocol PRN Reason: Hypoglycemia Protocol Stop: 08/02/25 18:48 Glucose (Glucose 40% Gel 15 Gm Tube) 15 - 30 gm PO UD PRN; Protocol PRN Reason: Hypoglycemia Protocol Stop: 08/02/25 18:48 Glucose (Glucose 10 Tab/Tube) 4 - 8 tab PO UD PRN; Protocol PRN Reason: Hypoglycemia Protocol Stop: 08/02/25 18:48 Heparin Sodium (Porcine) (Heparin Sod 5,000 Unit/0.5 Ml Vial) 5,000 units SQ Q12 [facility]IN Stop: 08/02/25 20:59 Daptomycin 500 mg/ Syringe 10 mls @ 5.5 mls/min IV Q24H [facility]; Protocol Stop: 07/05/25 18:59 Phenylephrine HCl (Phenylephrine/Nss) 25 mg in 250 mls @ 140.4 mls/hr IV .Q1H47M [facility]; Protocol Stop: 08/02/25 17:29 Last Admin: 07/03/25 20:11 Dose: 3 mcg/kg/min, 140.4 mls/hr Vasopressin 20 units/ Sodium (Chloride) 101 mls @ 12.12 mls/hr IV .Q8H20M [facility] Stop: 08/02/25 18:59 Last Admin: 07/03/25 19:10 Dose: 0.04 unit/min, 12.1 mls/hr Lactated Ringer's (Lr) 1,000 mls @ 115 mls/hr IV .Q8H42M [facility] Stop: 07/06/25 20:29 Insulin Aspart (Insulin Aspart Per Unit Charge) 0 units SC [facility] Stop: 08/02/25 20:59 Miscellaneous (Icu Protocol For Hyperglycemia) 1 each N/A [facility] Stop: 07/05/25 20:59 Miscellaneous (Carbohydrates For Hypoglycemia ) 15 - 30 gm PO UD PRN PRN Reason: Hypoglycemia Protocol Stop: 08/02/25 18:48 ECG Additional Comments: Normal sinus rhythmwith sinus arrhythmia Pulmonary disease pattern Right bundle branch block Left anterior fascicular block Bifascicular block Minimal voltage criteria for LVH, may be normal variant(R in aVL) Septal infarct, age undetermined Abnormal ECG When compared with ECG 09:51, T wave inversion less evident inInferior leads Nonspecific T wave abnormality no longer evident inLateral leads Coding Level of Care Code 14215 CRITICAL CARE 1ST 30-74M Diagnoses Shock R57.9 Acute kidney injury superimposed on CKD N17.9; N18.9 Type 2 diabetes mellitus with foot ulcer, with long-term current use of insulin E11.621; L97.509; Z79.4 Diabetes mellitus complication detail: with foot ulcer Diabetes mellitus complication status: with skin complications Diabetes mellitus long-term insulin use: with long-term use Severe aortic stenosis I35.0 Chronic retention of urine R33.9 (3) Diabetes mellitus, type II Diabetes mellitus complication detail: with foot ulcer Diabetes mellitus complication status: with skin complications Diabetes mellitus long filler cigar roller machine insulin use: with long filler cigar roller machine use Qualified Code(s): E11.621 - Type 2 diabetes mellitus with foot ulcer; L97.509 - Non-pressure chronic ulcer of other part of unspecified foot with unspecified severity; Z79.4 - long term care phlebotomist (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
--- NOTE | 2025-07-03 20:00 | Procedure Note ---
Procedure Note Date of Service July 03, 2025 ARTERIAL LINE PROCEDURE NOTE: Procedure: Arterial Line Placement Proceduralist: Gianni MCFARLAND ([facility]-) Attending: Dr. HENDERSON Indication: Monitoring on Pressors Anesthesia: [x]Lidocaine 1% Emergent Consent was implied as unable to reach family and patient with rapidly increasing need for further vasopressors and need for accurate and timely monitoring. A time-out was completed verifying correct patient, procedure, site, positioning, and implant(s) or special equipment if applicable. Allens test was performed to ensure adequate perfusion. Patients LEFT wrist was prepped and draped in the usual sterile fashion. Ultrasound guidance was used to aid needle placement. A 20g Arrow arterial line was introduced into the LEFT RADIAL artery x1 attempt, brisk flash of blood was noted, the wire was advanced without resistance, the catheter was threaded also without resistence, and the needle was removed with appropriate blood return. Pressure tubing was then attached noting a good arterial waveform. The line was then sutured in place and dressed with sterile tegaderm. The patient tolerated the procedure well. Blood Loss: Minimal Complications: None immediate [facility] Procedure Codes (Charges) Tubes, Drains, and Vasc Access Procedure 1: Tubes, Drains, and Vasc Access: [id number] Arterial Cath/Cannulation Sampling/Monitoring/Transfusion Coding CPT Codes Tubes, Drains, and Vasc Access - Tubes, Drains, and Vasc Access: [id number] Arterial Cath/Cannulation Sampling/Monitoring/Transfusion ([id number]) Additional Codes Date of Service ([facility].SURGERY)
--- NOTE | 2025-07-03 20:00 | Procedure Note ---
Procedure Note Date of Service July 03, 2025 FEMORAL VEIN CENTRAL LINE PROCEDURE NOTE: Procedure: RIGHT FEMORAL VEIN CENTRAL LINE Proceduralist: Gianni MCFARLAND ([facility]-) Attending: ] Indication: Central Drug Administration, Poor Venous Access, Multiple Lab Draws Necessary, etc. Anesthesia: [x]Lidocaine 1% Emergent Consent was implied as there was no family immediately available and not able to be reached by phone, patient was with rapidly increasing need of vasoactive medications and now requiring multiple medications. A time-out was completed verifying correct patient, procedure, site, positioning, and implants(s) or special equipment if applicable. Patients bilateral neck was initially scouted for evaluation of IJ's, these were compressible with pressure and with inspiration, patient also moving arms up towards neck. With his current inability to follow commands and risk of interference as well as inability to likely tolerate head down position, the femoral vein was chosen. After identifying appropriate targeted on the RIGHT side the RIGHT groin was cleansed and draped in the typical sterile fashion using Chloraprep. The The FEMORAL Vein and FEMORAL Artery were identified using ultrasound. The superficial tissue was anesthetized using 5mL of 1% lidocaine without epinephrine under direct visualization with the ultrasound. After adequate anesthetization was achieved, the FEMORAL vein was cannulated under direct ultrasound guidance using an introducer needle on a syringe. Good venous blood return was maintained prior to removal of syringe from introducer needle x1 atempt. Using Seldinger Technique, a guide wire was advanced through the introducer needle without resistance. The introducer needle was removed and ultrasound images were obtained of the guide wire within the FEMORAL Vein. A small incision was made in penetrating fashion at the guide wire insertion site utilizing an 11 blade scalpel. The dilator was advanced to the vessel without resistance. The dilator was exchanged for the triple lumen catheter which was advanced into the vessel without resistance. The guide wire was removed intact from the catheter without issue. Claves were placed on each catheter tip with confirmation of good blood flow from each lumen. Each port was easily flushed with sterile saline. The catheter was placed at 20 cm and sutured in place. BioPatch was applied to the catheter and a sterile Tegaderm dressing was applied over the catheter with careful attention to sterility. Patient tolerated procedure well. No immediate complications were met. Line ready for immediate use. Images obtained are NOT saved for permanent record as this was emergent/urgent Artery AND Vein visualized: YES Compressible Vein: YES Guidewire or Short Catheter seen in vein prior to dilation: YES [facility] [place] Procedure Codes (Charges) Tubes, Drains, and Vasc Access Procedure 2: Tubes, Drains, and Vasc Access: [id number] Insertion Of Non-tunneled Catheter Age 5 Yrs> Coding CPT Codes Tubes, Drains, and Vasc Access - Tubes, Drains, and Vasc Access: [id number] Insertion Of Non-tunneled Catheter Age 5 Yrs> ([id number]) Additional Codes Date of Service ([facility].SURGERY)
[2025-07-03 20:06] LABS: INR 1.2 (0.9-1.1); Partial Thromboplastin Time 30 Seconds (21-31); Prothrombin Time 13.2 Seconds (9.0-12.0)
[2025-07-03 20:16] LABS: Thyroid Stimulating Hormone 6.035 uIu/ml (0.300-4.500)
--- NOTE | 2025-07-03 20:21 | Communication Note ---
Date of Service: July 03, 2025 After transfer to ICU, I discussed this case with sales solutions associate night import export manager provider. Also updated night time attending. I called on-call case management assistant who states the pt would not be a good candidate for surgical intervention like TAVR at his current condition and ordered echo to be done as STAT. Ordered head CT to look for stroke/acute pathology given acute mental status decline. Doppler US b/l ordered as well. Overall prognosis for this patient remains quite poor at this time.
--- NOTE | 2025-07-03 20:52 | Cardiology Consultation ---
Date of Consultation July 03, 2025 Assessment & Plan (1) Acute respiratory failure with hypoxia: (2) Acute kidney injury superimposed on CKD: (3) Paroxysmal atrial fibrillation: (4) Diabetes mellitus, type II: (5) Severe aortic stenosis: (6) Chronic indwelling Hanna catheter: (7) Hypotension: Plan 79 Y M admitted to the ICU through the ER where he was transferred from nursing facility after his Hanna catheter became dislodged. Patient reportedly had decreased responsiveness with suspected aspiration of vomitus at the nursing facility. In the emergency department, patient apparently became hypoxic and hypotensive. Initial lab work was remarkable for an elevated lactate level. He was given 3 successive 500 cc fluid boluses, and nursing after several attempts was able to reinsert Hanna catheter with prompt evacuation of about 600 cc of bloody urine with clots. Patient was also started on pressors with improvement of BP. Patient is on high flow oxygen, is lethargic and non-communicative. Information is obtained from the chart. Patient has h/o severe , CKD, HFpEF EF 55%, PAF on Eliquis, DM, chronic indwelling Hanna due to chronic obstruction due to BPH, RLE BKA. Patient was on diuretics at the nursing facility. Cardiology consulted for TAVR Septic / Hypovolemic shock AMS TME 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 Acute respiratory failure Hyperkalemia - defer to primary team ?Aspiration pneumonia ?Urosepsis Hydronephrosis Severe - patient is currently not a candidate for TAVR PAF - currently in sinus rhythm DM Chronic indwelling Hanna BPH RLE BKA Chronic HFpEF - patient is not in acute CHF at this time and is hypovolemic IVF as per sepsis protocol pressors keeping MAP > 65mmHg ABX as per primary team correct and f/u electrolytes f/u renal function DC diuretics anticoagulation - IV heparin for now DC Eliquis DC all anti-HTN meds strict I&Os STAT ECHO done - as above Supervising Physician Co-Signing Physician Notes ATTESTATION I also saw the patient and confirmed diaz portions of the history and exam. I agree with the impression and plan in the resident documentation, and as summarized below. 79-year-old male with history of CHF and critical init vicki presented to the emergency department in transfer from nursing facility after his Hanna catheter became dislodged. However, while in the emergency department, he acutely became hypoxic and hypotensive. Initial lab work was fairly unremarkable except for an elevated lactate level. He was given 3 successive 500 cc fluid boluses, and nursing after several attempts was able to reinsert Hanna catheter with prompt evacuation of about 600 cc of bloody urine with clots. For short period of time thereafter, his hemodynamics seem to improve - there was a automated blood pressure showing systolic around 160, although this was short-lived and subsequent repeat blood pressures were in the 60s70s systolic. His respiratory status improved with high flow oxygen maintaining pulse oximetry readings at or close to 100%. His heart rate has been fairly stable, sinus in the mid 80s. Per paperwork transferred from the facility, he is a DO NOT RESUSCITATE. The emergency department physician has tried unsuccessfully to reach both the primary and secondary contacts. I personally discussed the case with the Emergency department physician and critical lpn care manager IMPRESSION & PLAN Acute respiratory failure with hypoxia Hypotension Question Sepsis, likely urinary source Severe aortic stenosis 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 Overall thought is that he is hypovolemic based on exam plan bedside ultrasound. I suspect there is element hemoconcentration on his presenting labs as well. His critical complicates fluid management, but seems to be handling initial 1.5 L. Interestingly, no compensatory tachycardia on low-dose Toprol. No clear source, but urosepsis leading thought given his history. Admit to ICU Appreciate critical care consultation Pressure support adjusted to target MAP BiPAP if pulmonary status worsens Echocardiogram Broad-spectrum antibiotics pending cultures Consults to cardiology, nephrology Additional per resident documentation History of Present Illness Reason for Consultation: TAVR for Attending Physician: Anton August DO History of Present Illness 79 Y M admitted to the ICU through the ER where he was transferred from nursing facility after his Hanna catheter became dislodged. Patient reportedly had decreased responsiveness with suspected aspiration of vomitus at the nursing facility. In the emergency department, patient apparently became hypoxic and hypotensive. Initial lab work was remarkable for an elevated lactate level. He was given 3 successive 500 cc fluid boluses, and nursing after several attempts was able to reinsert Hanna catheter with prompt evacuation of about 600 cc of bloody urine with clots. Patient was also started on pressors with improvement of BP. Patient is on high flow oxygen, is lethargic and non-communicative. Information is obtained from the chart. Patient has a h/o severe aortic stenosis, CKD, HFpEF EF 55%, PAF on Eliquis, DM, chronic indwelling Hanna due to chronic obstruction due to BPH, RLE BKA Allergies Allergy/AdvReac Type Severity Reaction Status Date / Time lisinopril Allergy Severe Swelling Verified 06/21/25 13:07 of Face/Lips/Tongue hydrochlorothiazide Allergy Unknown Unknown - Unverified 06/21/25 13:07 On file w/ [facility] Home Medications Medication Instructions Recorded Confirmed Type insulin glargine 100 unit/mL (3 5 unit subcut HS 04/07/24 06/21/25 History mL) subcutaneous pen (Lantus Solostar U-100 Insulin) polyethylene glycol 3350 17 gram 17 g PO DAILY PRN constipation #14 05/17/24 06/21/25 Rx oral powder packet (Miralax) ea Saccharomyces boulardii 250 mg 250 mg PO AMHS 03/15/25 06/21/25 History capsule (Florastor) acetaminophen 325 mg tablet 650 mg PO Q6H PRN Fever greater 03/15/25 06/21/25 History (Tylenol) than 100/Pain amitriptyline 10 mg tablet 30 mg PO HS 03/15/25 06/21/25 History atorvastatin 40 mg tablet 40 mg PO HS 03/15/25 06/21/25 History bisacodyl 10 mg rectal suppository 10 mg WA DAILY PRN Constipation 03/15/25 06/21/25 History (Dulcolax (bisacodyl)) docusate sodium 100 mg tablet 100 mg PO AMHS 03/15/25 06/21/25 History finasteride 5 mg tablet 5 mg PO QAM 03/15/25 06/21/25 History glucagon 1 mg solution for 1 mg IM DIRECTED PRN 03/15/25 06/21/25 History injection (Glucagon Emergency Kit) Hypoglycemia insulin lispro 100 unit/mL 1 sliding scale dose subcut 03/15/25 06/21/25 History subcutaneous solution (Humalog USEASDIRECTD U-100 Insulin) insulin lispro 100 unit/mL 2 unit subcut TIDWMEAL 03/15/25 06/21/25 History subcutaneous solution (Humalog U-100 Insulin) magnesium hydroxide 400 mg/5 mL 2,400 mg PO DAILY PRN Constipation 03/15/25 06/21/25 History oral suspension (Milk of Magnesia) oxycodone 5 mg tablet 5 mg PO Q6H PRN Pain 03/15/25 06/21/25 History pregabalin 75 mg capsule 75 mg PO AMHS 03/15/25 06/21/25 History sennosides 8.6 mg-docusate sodium 1 tab PO AMHS constipation 03/15/25 06/21/25 History 50 mg tablet (Senokot-S) sodium phosphates 19 gram-7 118 ml WA DAILY PRN Constipation 03/15/25 06/21/25 History gram/118 mL enema (Fleet Enema) tamsulosin 0.4 mg capsule 0.4 mg PO HS 03/15/25 06/21/25 History pantoprazole 40 mg tablet,delayed 40 mg PO BID #60 tabs 03/20/25 06/21/25 Rx release apixaban 2.5 mg tablet (Eliquis) 2.5 mg PO BID #60 tabs 04/27/25 06/21/25 Rx furosemide 20 mg tablet (Lasix) 20 mg PO DAILY #30 tabs 04/27/25 06/21/25 Rx metoprolol succinate 50 mg 50 mg PO BID #60 tabs 04/27/25 06/21/25 Rx tablet,extended release 24 hr Patient History Medical History Pyelonephritis Hydronephrosis, bilateral Asymptomatic hypertensive urgency Bilateral lower leg cellulitis Blister of finger Maggot infestation CESAR (acute kidney injury) Surgical History History of ear surgery age 19, mastoid H/O shoulder surgery S/P foot surgery, left Family History Brother Diabetes Social History Smoking Status: Former smoker Tobacco Type: Cigarettes Second Hand Exposure: No; Do You Dip or Chew Tobacco: No; Hx Alcohol Use: No Hx Substance Use: No Preferred Language: Brazilian Communication Ability: Impaired Communication Ability Comment: Hearing Loss. Visual Impairment: Limited Hearing Ability: Use of Hearing Aid Java Lead Required: No Beliefs That Will Affect Care: None marital status: Current Living Situation: Personal Care Facility Current Living Situation Comment: [facility] current occupational status: retired How many Children do You have: 3 Other Information That Helps Us Care for You: No Feels Safe at Home: Yes Safety Concerns: Feels Safe At This Time during the past year weight has: remained stable Dental Care, Regularly: No Physical Activity Frequency: Does not Exercise Assistive Devices: Wheelchair Review of Systems Review of Systems: Unable to obtain due to AMS Physical Exam Physical Exam: General: Acutely ill appearing, respiratory distress, lethargic, noncommunicative HEENT: Normocephalic, dry oral mucosa, Cardio: Regular rate and rhythm, +4/6 JESSICA Resp: BLBS, no rales, no wheezing GI: Soft and nontender, nondistended, BS+ Skin: Pale, cool EXT: R BKA Results & Data Vital Signs (Past 12 Hours) Vital Signs Temp Pulse Pulse Resp BP BP Pulse Ox 07/03/25 19:42 70 18 07/03/25 19:12 77 15 07/03/25 19:11 79/48 L 07/03/25 19:09 76 14 07/03/25 19:00 77 15 100 07/03/25 19:00 76/32 L 07/03/25 18:51 54/37 L 07/03/25 18:48 76 20 07/03/25 18:46 63/39 L 07/03/25 18:45 74 18 07/03/25 18:43 78 20 97 07/03/25 18:42 77 14 98 07/03/25 18:41 07/03/25 18:41 37.1 C 83 24 99 07/03/25 18:41 07/03/25 18:36 96 07/03/25 17:20 84 22 93/61 L 100 07/03/25 16:57 76 20 102/46 L 100 07/03/25 16:39 76/44 L 100 07/03/25 16:39 85 22 76/44 L 98 07/03/25 16:34 77 20 62/38 L 97 07/03/25 16:21 73 07/03/25 16:13 78 20 100 07/03/25 15:44 78 18 160/96 H 97 07/03/25 14:53 80 20 96 07/03/25 14:45 74/45 L 07/03/25 14:41 78 22 131/91 94 07/03/25 14:30 89 L 07/03/25 14:11 79 74 H 118/81 95 07/03/25 13:04 70 24 108/75 96 07/03/25 12:58 73 24 113/77 93 07/03/25 12:58 93 07/03/25 12:06 65 07/03/25 12:00 37.5 C 67 22 113/77 93 O2 Del Method O2 Del Method O2 Flow Rate FiO2 07/03/25 19:42 High Flow Nasal Cannula 40 70 07/03/25 19:12 07/03/25 19:11 07/03/25 19:09 07/03/25 19:00 07/03/25 19:00 07/03/25 18:51 07/03/25 18:48 07/03/25 18:46 07/03/25 18:45 07/03/25 18:43 High Flow Nasal Cannula 40 70 07/03/25 18:42 07/03/25 18:41 High Flow Nasal Cannula 40 70 07/03/25 18:41 High Flow Nasal Cannula 07/03/25 18:41 High Flow Nasal Cannula 07/03/25 18:36 07/03/25 17:20 High Flow Nasal Cannula 07/03/25 16:57 High Flow Nasal Cannula 07/03/25 16:39 High Flow Nasal Cannula 07/03/25 16:39 High Flow Nasal Cannula 07/03/25 16:34 High Flow Nasal Cannula 07/03/25 16:21 07/03/25 16:13 High Flow Nasal Cannula 40 80 07/03/25 15:44 High Flow Nasal Cannula 07/03/25 14:53 High Flow Nasal Cannula 40 80 07/03/25 14:45 07/03/25 14:41 Oxymask 10 07/03/25 14:30 Nasal Cannula, Oxymask 5 07/03/25 14:11 Nasal Cannula 3 07/03/25 13:04 Nasal Cannula 5 07/03/25 12:58 Nasal Cannula 3 07/03/25 12:58 Nasal Cannula 3 07/03/25 12:06 07/03/25 12:00 Nasal Cannula 2 Laboratory Results Cardiac Enzymes 07/03/25 07/03/25 07/03/25 Range/Units 12:25 16:50 19:15 AST 15 13 (13-39) U/L Troponin I High Sens 10.5 16.7 D (0-20) pg/ml B-Natriuretic Peptide 224 H (0-100) pg/ml Coagulation 07/03/25 Range/Units 19:15 PT 13.2 H (9.0-12.0) Seconds APTT 30 (21-31) Seconds B-Natriuretic Peptide 224 H (0-100) pg/ml CBC 07/03/25 07/03/25 Range/Units : 16:50 WBC 5.64 23.81 H D (4.8-10.8) K/ul RBC 4.53 L 3.55 L (4.70-6.10) M/uL Hgb 12.9 L 10.2 L (14.0-18.0) g/dl Hct 40.3 L 31.4 L (42.0-52.0) % Plt Count 275 239 (130-400) K/uL Neut # (Auto) 4.80 22.74 H (1.40-6.50) K/uL Lymph # (Auto) 0.76 L 0.62 L (1.20-3.40) K/uL Screven # (Auto) 0.03 L 0.15 (0.11-0.59) K/uL Eos # (Auto) 0.01 0.01 (0.00-0.50) K/uL Baso # (Auto) 0.03 0.06 (0.00-0.20) K/uL Comprehensive Metabolic Panel 07/03/25 07/03/25 Range/Units : 16:50 Sodium 142 141 (136-145) mmol/L Potassium 5.5 H 4.7 (3.5-5.1) mmol/L Chloride 100 103 (98-107) mmol/L Carbon Dioxide 29 24 (21-32) mmol/L BUN 65 H 71 H (6-23) mg/dl Creatinine 4.20 H 4.35 H (0.6-1.4) mg/dl Glucose 241 H 162 H (70-99(Fasting)) mg/dl Calcium 10.1 8.7 (8.6-10.3) mg/dl Direct Bilirubin 0.1 (0-0.2) mg/dl AST 15 13 (13-39) U/L ALT 12 8 (7-52) U/L Alkaline Phosphatase 76 61 (34-104) U/L Total Protein 8.7 H 6.7 D (6.0-8.3) gm/dl Albumin 3.8 2.8 L (3.4-5.0) gm/dl Intake and Output 07/03/25 07/03/25 07/03/25 06:59 14:59 22:59 Intake Total 500 / 2383.370 1883.370 / 2383.370 Output Total 150 / 702 552 / 702 Balance 350 / 2562.901 7619.370 / 1681.370 Intake: IV 500 / 2383.370 1883.370 / 2383.370 Lactated Ringer's 1,000 ml @ 1000 / 1000 999 mls/hr IV .Q1H1M ONE Rx#: [id number] Norepinephrine/D5w 4 mg In 250 33.370 / 33.370 ml @ 0.05 MCG/KG/MIN 14.625 mls /hr IV .Q17H6M DARIN Rx#:[id number] Phenylephrine/Nss 25 mg In 250 250.000 / 250.000 ml @ 0.5 MCG/KG/MIN 23.4 mls/hr IV .[id number] [facility] Rx#:[id number] Piperacillin/Tazobactam 4.5 gm 100 / 100 In 100 ml @ 200 mls/hr IV NOW ONE Rx#:[id number] Sodium Chloride 0.9% 500 ml @ 500 / 1000 500 / 1000 999 mls/hr IV .Q31M ONE Rx#: [id number] Oral 0 / 0 Output: Urine 150 / 150 Urine Amount (Catheter) 550 / 550 Coude 550 / 550 # Bowel Movements 2 / 2 Other: Weight 78 kg 77.9 kg Weight Measurement Method Built in [facility] Built in [facility] Patient Weight 07/04/25 06:59 Weight 77.9 kg Diagnostic Findings Laboratory Results WBC 23.81 K/ul (4.8-10.8) H D 07/03/25 16:50 RBC 3.55 M/uL (4.70-6.10) L 07/03/25 16:50 Hgb 10.2 g/dl (14.0-18.0) L 07/03/25 16:50 Hct 31.4 % (42.0-52.0) L 07/03/25 16:50 MCV 88.5 fL (80.0-100.0) 07/03/25 16:50 MCH 28.7 pg (25.0-34.0) 07/03/25 16:50 MCHC 32.5 g/dL (32.0-36.0) 07/03/25 16:50 RDW Std Deviation 42.2 fL (36.4-46.3) 07/03/25 16:50 RDW Coeff of Scott 13.1 % (11.5-14.5) 07/03/25 16:50 Plt Count 239 K/uL (130-400) 07/03/25 16:50 MPV 10.6 fL (9.4-12.4) 07/03/25 16:50 Immature Gran % (Auto) 1.0 % 07/03/25 16:50 Neut % (Auto) 95.5 % 07/03/25 16:50 Lymph % (Auto) 2.6 % 07/03/25 16:50 Screven % (Auto) 0.6 % 07/03/25 16:50 Eos % (Auto) 0.0 % 07/03/25 16:50 Baso % (Auto) 0.3 % 07/03/25 16:50 Neut # (Auto) 22.74 K/uL (1.40-6.50) H 07/03/25 16:50 Lymph # (Auto) 0.62 K/uL (1.20-3.40) L 07/03/25 16:50 Screven # (Auto) 0.15 K/uL (0.11-0.59) 07/03/25 16:50 Eos # (Auto) 0.01 K/uL (0.00-0.50) 07/03/25 16:50 Baso # (Auto) 0.06 K/uL (0.00-0.20) 07/03/25 16:50 Immature Gran # (Auto) 0.23 K/uL (0.01-0.20) H 07/03/25 16:50 PT 13.2 Seconds (9.0-12.0) H 07/03/25 19:15 INR 1.2 (0.9-1.1) H 07/03/25 19:15 APTT 30 Seconds (21-31) 07/03/25 19:15 PTT Ratio 1.1 07/03/25 19:15 VBG pH 7.30 (7.36-7.41) L 07/03/25 16:50 VBG pCO2 56 mmHg (38-50) H 07/03/25 16:50 VBG pO2 31 mmHg 07/03/25 16:50 VBG HCO3 28 mmol/L 07/03/25 16:50 VBG O2 Saturation < 60.0 % 07/03/25 16:50 VBG Base Excess 0.5 mEq/L 07/03/25 16:50 Sodium 141 mmol/L (136-145) 07/03/25 16:50 Potassium 4.7 mmol/L (3.5-5.1) 07/03/25 16:50 Chloride 103 mmol/L (98-107) 07/03/25 16:50 Carbon Dioxide 24 mmol/L (21-32) 07/03/25 16:50 Anion Gap 14 (3-11) H 07/03/25 16:50 BUN 71 mg/dl (6-23) H 07/03/25 16:50 Creatinine 4.35 mg/dl (0.6-1.4) H 07/03/25 16:50 Est Cr Clr Drug Dosing 12.7 ml/min 07/03/25 16:50 eGFR 13.12 07/03/25 16:50 BUN/Creatinine Ratio 16.3 (10-20) 07/03/25 16:50 Glucose 162 mg/dl (70-99(Fasting)) H 07/03/25 16:50 Lactate 2.8 mmol/L (0.4-2.0) H* 07/03/25 19:15 Calcium 8.7 mg/dl (8.6-10.3) 07/03/25 16:50 Magnesium 2.4 mg/dl (1.7-2.4) 07/03/25 12:25 Total Bilirubin 0.6 mg/dl (0.2-1.0) 07/03/25 16:50 Direct Bilirubin 0.1 mg/dl (0-0.2) 07/03/25 12:25 AST 13 U/L (13-39) 07/03/25 16:50 ALT 8 U/L (7-52) 07/03/25 16:50 Alkaline Phosphatase 61 U/L (34-104) 07/03/25 16:50 Troponin I High Sens 16.7 pg/ml (0-20) D 07/03/25 19:15 B-Natriuretic Peptide 224 pg/ml (0-100) H 07/03/25 19:15 Total Protein 6.7 gm/dl (6.0-8.3) D 07/03/25 16:50 Albumin 2.8 gm/dl (3.4-5.0) L 07/03/25 16:50 Globulin 3.9 gm/dl (2.5-4.0) 07/03/25 16:50 Albumin/Globulin Ratio 0.7 (0.9-2) L 07/03/25 16:50 Procalcitonin 0.26 ng/ml (0-0.5) 07/03/25 12:25 TSH 6.035 uIu/ml (0.300-4.500) H 07/03/25 19:15 Random Cortisol > 60.00 mcg/dl 07/03/25 19:15 Urine Color Red 07/03/25 16:00 Urine Appearance Turbid (Clear) A 07/03/25 16:00 Urine pH >= 9.0 (4.5-7.5) H 07/03/25 16:00 Ur Specific Violet 1.011 (1.000-1.030) 07/03/25 16:00 Urine Protein 3+ (Negative) H 07/03/25 16:00 Urine Glucose (UA) Negative (Negative) 07/03/25 16:00 Urine Ketones Negative (Negative) 07/03/25 16:00 Urine Blood 3+ (Negative) H 07/03/25 16:00 Urine Nitrite Positive (Negative) A 07/03/25 16:00 Urine Bilirubin Negative (Negative) 07/03/25 16:00 Urine Urobilinogen Negative (Negative) 07/03/25 16:00 Ur Leukocyte Esterase 3+ (Negative) H 07/03/25 16:00 Urine WBC (Auto) >50 /hpf (0-5) H 07/03/25 16:00 Urine RBC (Auto) >20 /hpf (0-2) H 07/03/25 16:00 U Hyaline Cast (Auto) 6-10 /lpf (0-2) H 07/03/25 16:00 U Epithel Cells (Auto) 0-2 /hpf (0-2) 07/03/25 16:00 Urine Bacteria (Auto) 4+ (None Seen) H 07/03/25 16:00 Triple Phos Crystals Present (None Prsent) A 07/03/25 16:00 Urine Mucus Present (None Prsent) A 07/03/25 16:00 Urine Comment 07/03/25 16:00 Nasal Screen MRSA (PCR) Negative (Negative) 07/03/25 18:45 Impressions Abdomen/Pelvis CT 07/03/25 13:19 EXAM: CT Abdomen and Pelvis Without Intravenous Contrast INDICATION: Urinary retention. TECHNIQUE: Axial computed tomography images of the abdomen and pelvis without intravenous contrast. Sagittal and coronal reformatted images were created and reviewed. This CT exam was performed using one or more of the following dose reduction techniques: automated exposure control, adjustment of the mA and/or kV according to patient size, and/or use of iterative reconstruction technique. COMPARISON: 08/12/2024 FINDINGS: Limitations: None. Lung bases: Atelectasis and/or scarring noted in the lung bases. Pleural space: No visualized pleural effusion or pneumothorax. Heart: No abnormality noted. Mediastinum: No abnormality noted. ABDOMEN: Liver: Lack of intravenous contrast limits detection of some masses. No abnormality noted. Gallbladder and bile ducts: Distended gallbladder. Pancreas: No pancreatic mass, calcification, inflammation or ductal dilation noted. Spleen: No significant abnormality noted. Adrenals: No significant abnormality noted. Kidneys and ureters: Mild right and mild to moderate left hydroureteronephrosis relatively sparing the distal right ureter. No stones. Mild symmetrical perinephric scarring noted. Stomach and bowel: Moderate amounts of formed stool in the rectum and sigmoid. No obstruction. PELVIS: Appendix: No findings to suggest acute appendicitis. Bladder: The urinary bladder is thickened and contains air and a small amount of blood. There is slight irregularity of wall thickening along the right lateral wall. Reproductive: No abnormalities noted. ABDOMEN and PELVIS: Intraperitoneal space: No free air. No significant fluid collection. Bones/joints: No acute changes. Soft tissues: There are bilateral fat-containing inguinal hernias. Vasculature: Atherosclerotic calcification of the aorta and branches. No aneurysm. Lymph nodes: No pathologically enlarged lymph nodes. IMPRESSION: 1. Cystitis with blood clots and slight irregularity of the right lateral wall. Neoplasm not completely excluded. 2. There is mild right and mild to moderate left hydroureteronephrosis possibly related to reflux. No obstructing stone noted. 3. Moderate amounts of formed stool in the rectosigmoid colon without obstruction. ACT 112: N/A Electronically signed by Maria G Nelson 07-03-2025 2:25 PM Chest X-Ray 07/03/25 14:32 Chest radiograph, one view History: Possible aspiration Comparison: Same-day Findings: Single AP view of the chest performed. Thin area of bandlike atelectasis in the mid left lung. No focal consolidation or pleural effusion. No pneumothorax. The cardiomediastinal silhouette is within normal limits. Normal pulmonary vascularity. No evidence for lymphadenopathy. No visualized bony or soft tissue abnormality. Impression: Normal chest radiograph Electronically signed by Arron Maria 07-03-2025 4:16 PM 07/03/25 ECHOCARDIOGRAM Interpretation Summary The study was technically difficult. There were technical limitations due to patient'spoor positioning Left ventricular systolic function is normal. Left Ventricular Ejection Fraction = 50-55%. Grade I diastolic dysfunction, (abnormal relaxation pattern). Moderate to severe valvular aortic stenosis. There is mild mitral regurgitation. There is mild tricuspid regurgitation. Medications Administered Home Medications Medication Instructions Recorded Confirmed Last Taken insulin glargine 100 unit/mL (3 5 unit subcut HS 04/07/24 06/21/25 03/14/25 mL) subcutaneous pen (Lantus Solostar U-100 Insulin) polyethylene glycol 3350 17 gram 17 g PO DAILY PRN constipation #14 05/17/24 06/21/25 Unknown oral powder packet (Miralax) ea Saccharomyces boulardii 250 mg 250 mg PO AMHS 03/15/25 06/21/25 03/15/25 capsule (Florastor) acetaminophen 325 mg tablet 650 mg PO Q6H PRN Fever greater 03/15/25 06/21/25 Unknown (Tylenol) than 100/Pain amitriptyline 10 mg tablet 30 mg PO HS 03/15/25 06/21/25 03/14/25 atorvastatin 40 mg tablet 40 mg PO HS 03/15/25 06/21/25 03/14/25 bisacodyl 10 mg rectal suppository 10 mg WA DAILY PRN Constipation 03/15/25 06/21/25 Unknown (Dulcolax (bisacodyl)) docusate sodium 100 mg tablet 100 mg PO AMHS 03/15/25 06/21/25 03/15/25 finasteride 5 mg tablet 5 mg PO QAM 03/15/25 06/21/25 03/15/25 glucagon 1 mg solution for 1 mg IM DIRECTED PRN 03/15/25 06/21/25 Unknown injection (Glucagon Emergency Kit) Hypoglycemia insulin lispro 100 unit/mL 1 sliding scale dose subcut 03/15/25 06/21/25 0 03/15/25 subcutaneous solution (Humalog USEASDIRECTD U-100 Insulin) insulin lispro 100 unit/mL 2 unit subcut TIDWMEAL 03/15/25 06/21/25 03/15/25 subcutaneous solution (Humalog U-100 Insulin) magnesium hydroxide 400 mg/5 mL 2,400 mg PO DAILY PRN Constipation 03/15/25 06/21/25 Unknown oral suspension (Milk of Magnesia) oxycodone 5 mg tablet 5 mg PO Q6H PRN Pain 03/15/25 06/21/25 Unknown pregabalin 75 mg capsule 75 mg PO AMHS 03/15/25 06/21/25 03/15/25 sennosides 8.6 mg-docusate sodium 1 tab PO AMHS constipation 03/15/25 06/21/25 03/15/25 50 mg tablet (Senokot-S) sodium phosphates 19 gram-7 118 ml WA DAILY PRN Constipation 03/15/25 06/21/25 Unknown gram/118 mL enema (Fleet Enema) tamsulosin 0.4 mg capsule 0.4 mg PO HS 03/15/25 06/21/25 03/14/25 pantoprazole 40 mg tablet,delayed 40 mg PO BID #60 tabs 03/20/25 06/21/25 Unknown release apixaban 2.5 mg tablet (Eliquis) 2.5 mg PO BID #60 tabs 04/27/25 06/21/25 Unknown furosemide 20 mg tablet (Lasix) 20 mg PO DAILY #30 tabs 04/27/25 06/21/25 Unknown metoprolol succinate 50 mg 50 mg PO BID #60 tabs 04/27/25 06/21/25 Unknown tablet,extended release 24 hr Active Medications Generic Name Dose Route Start Last Admin Trade Name Tai PRN Reason Stop Dose Admin Phenylephrine HCl 25 mg in 250 mls @ 140.4 mls/hr 07/03/25 17:30 07/03/25 20:11 Phenylephrine/Nss IV 08/02/25 17:29 3 mcg/kg/min .Q1H47M DARIN 140.4 mls/hr Administration Protocol 3 MCG/KG/MIN Vasopressin 20 units/ Sodium 101 mls @ 12.12 mls/hr 07/03/25 19:00 07/03/25 19:10 Chloride IV 08/02/25 18:59 0.04 unit/min .Q8H20M DARIN 12.1 mls/hr Administration 0.04 UNIT/MIN PG Care Time/CCT Total # of Minutes Spent Total Time Spent with Patient: Total time spent is greater than 50% in coordination of care (as documented) at patient's floor/unit and/or counseling patient: Coding Level of Care Code 21843 IN/OBS CONSULT LVL 5,80M Diagnoses Acute respiratory failure with hypoxia J96.01 Acute kidney injury superimposed on CKD N17.9; N18.9 Paroxysmal atrial fibrillation I48.0 Type 2 diabetes mellitus with foot ulcer, with long-term current use of insulin E11.621; L97.509; Z79.4 Diabetes mellitus [facility] insulin use: with [facility] use Diabetes mellitus complication status: with skin complications Diabetes mellitus complication detail: with foot ulcer Severe aortic stenosis I35.0 Chronic indwelling Hanna catheter Z97.8 Hypotension I95.9 (4) Diabetes mellitus, type II Diabetes mellitus rn long term care insulin use: with [facility] use Diabetes mellitus complication status: with skin complications Diabetes mellitus complication detail: with foot ulcer Qualified Code(s): E11.621 - Type 2 diabetes mellitus with foot ulcer; L97.509 - Non-pressure chronic ulcer of other part of unspecified foot with unspecified severity; Z79.4 - detention (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
[2025-07-03] MEDS: DAPTOmycin 500 MG in SYRINGE 0 ML IV SCH (21:15)
[2025-07-03] MEDS: LACTATED RINGER'S 1,000 ML IV SCH (21:27)
--- NOTE | 2025-07-03 21:32 | XCELERA ---
[id number] \\[id number]___[id number]
[2025-07-03] MEDS: INSULIN ASPART PER UNIT CHARGE SC SCH (21:35)
--- NOTE | 2025-07-03 21:44 | Ultrasound Report ---
Exam(s): US VENOUS BILATERAL LOWER EXTREMITIES EXAM: US Duplex Bilateral Lower Extremities Veins CLINICAL HISTORY: eval for DVTs. Right BKA reported. TECHNIQUE: Real-time duplex ultrasound scan of the bilateral lower extremity veins integrating B-mode two-dimensional vascular structure, Doppler spectral analysis, color flow Doppler imaging and compression. COMPARISON: No relevant prior studies available. FINDINGS: Right deep veins: No DVT in the right common femoral, femoral, proximal deep femoral or popliteal veins. The veins demonstrate normal color flow, are normally compressible, with normal phasic flow and/or augmentation response. Right superficial veins: Unremarkable. No thrombus in the saphenofemoral junction. Left deep veins: No DVT in the left common femoral, femoral, proximal deep femoral or popliteal veins. The veins demonstrate normal color flow, are normally compressible, with normal phasic flow and/or augmentation response. The interrogated calf veins are patent. Left superficial veins: Unremarkable. No thrombus in the saphenofemoral junction. Soft tissues: No acute findings. No popliteal cyst. IMPRESSION: No evidence for deep vein thrombosis involving the bilateral lower extremities. Electronically signed by: Arnoldo Staples MD 07/03/25 21:43 PM
--- NOTE | 2025-07-03 22:11 | CT Scan Report ---
Exam(s): CT HEAD Without Contrast EXAM: CT Head Without Intravenous Contrast CLINICAL HISTORY: AMS. TECHNIQUE: Axial computed tomography images of the head/brain without intravenous contrast. CTDI is 37.78 mGy and DLP is 625.8 mGy-cm. Automated exposure control was utilized for the study. A dose lowering technique was utilized adhering to the principles of ALARA. COMPARISON: CT head without contrast 05/12/2024 FINDINGS: Limitations: There is motion artifact, which degrades image quality on multiple image slices. Brain: There are a few areas of decreased attenuation in the deep cerebral white matter consistent with mild small vessel ischemic/degenerative changes. The cerebral and cerebellar sulci are mildly prominent consistent with mild brain atrophy. No intracranial hemorrhage. No significant mass effect. No cortical infarct or appreciable alteration from the prior examination. Ventricles: Unremarkable. No ventriculomegaly. Bones/joints: Unremarkable. No acute fracture. Soft tissues: Unremarkable. Vasculature: Atherosclerotic disease. Sinuses: Unremarkable as visualized. No acute sinusitis. Mastoid air cells: Unremarkable as visualized. No mastoid effusion. IMPRESSION: No acute intracranial process or significant alteration from the prior examination. Electronically signed by: Arnoldo Staples MD 07/03/25 22:10 PM
[2025-07-03] MEDS: HEPARIN SOD 5,000 UNIT/0.5 ML VIAL SQ SCH (22:53)
[2025-07-03] MEDS: LACTATED RINGER'S 2,000 ML IV ONE (23:13)
[2025-07-04] MEDS: INSULIN ASPART PER UNIT CHARGE SC SCH (00:23)
[2025-07-04] MEDS: MAX Conc; 100mg in 250mL (Std Protocol) *PHA PREP IV SCH (00:58)
[2025-07-04 02:44] LABS: A calco-baum cmplx NotReported Not Detected (NotDetected); Bact fragilis Not Reported Not Detected (NotDetected); Blood Culture Id Panel See PCR Comment (NotDetected); C auris Not Reported Not Detected (NotDetected); CTX-M Resistant Gene Not Detected (NotDetected); Calbicans Not Reported Not Detected (NotDetected); Candida glabrata Not Reported Not Detected (NotDetected); Candida krusei Not Reported Not Detected (NotDetected); Cneoformans/gatti Not Reported Not Detected (NotDetected); Cparapsilosis Not Reported Not Detected (NotDetected); Ctropicalis Not Reported Not Detected (NotDetected); E cloacae compx Not Reported Not Detected (NotDetected); Efaecalis Not Reported Not Detected (NotDetected); Efaecium Not Reported Not Detected (NotDetected); Enterobacterales DETECTED (NotDetected); Enterobacterales Not Reported DETECTED (NotDetected); Escherichia coli Not Reported Not Detected (NotDetected); H influenzae Not Reported Not Detected (NotDetected); IMP Resistant Gene Not Detected (NotDetected); K aerogenes Not Reported Not Detected (NotDetected); KPC Resistant Gene Not Detected (NotDetected); Koxytoca Not Reported Not Detected (NotDetected); Kpneumoniae grp Not Reported Not Detected (NotDetected); Lmonocyt Not Reported Not Detected (NotDetected); N meningitidis Not Reported Not Detected (NotDetected); NDM Resistant Gene Not Detected (NotDetected); OXA 48 Like Resistant Gene Not Detected (NotDetected); P aeruginosa Not Reported Not Detected (NotDetected); Proteus spp Not Reported DETECTED (NotDetected); Salmonella spp Not Reported Not Detected (NotDetected); Staph lugdunensis Not Reported Not Detected (NotDetected); Staph spp. Not Reported Not Detected (NotDetected); Staphaureus Not Reported Not Detected (NotDetected); Staphepi Not Reported Not Detected (NotDetected); Stenmaltophilia Not Reported Not Detected (NotDetected); Strep agal(GrpB) Not Reported Not Detected (NotDetected); Strep pneum Not Reported Not Detected (NotDetected); Strep pyog (GrpA) Not Reported Not Detected (NotDetected); Strep spp Not Reported Not Detected (NotDetected); VIM Resistant Gene Not Detected (NotDetected)
[2025-07-04 02:49] LABS: Proteus species DETECTED (NotDetected)
[2025-07-04] MEDS: MEROPENEM 500 MG in SYRINGE 0 ML IV SCH (03:17)
[2025-07-04] MEDS: Concentrate Phenylephrine IV Infusion ONE (03:33)
[2025-07-04 04:20] LABS: Amphetamines+Metham, Urine Neg (Neg); MDMA (Ecstacy), Urine Neg (Neg); Marijuana, Urine Neg (Neg)
[2025-07-04 04:37] LABS: Alanine Aminotransferase 8.0 U/L (7-52); Albumin Globulin Ratio 0.8 (0.9-2); Alkaline Phosphatase 58.0 U/L (34-104); Anion Gap 11.0 (3-11); Bilirubin,Total 0.5 mg/dl (0.2-1.0); Blood Urea Nitrogen 64.0 mg/dl (6-23); Calcium 8.1 mg/dl (8.6-10.3); Carbon Dioxide 23.0 mmol/L (21-32); Chloride 106.0 mmol/L (98-107); Creatinine Clr Calc Pharmacy 13.7 ml/min; Globulin 3.3 gm/dl (2.5-4.0); Glucose 224.0 mg/dl (70-99(Fasting)); Magnesium 1.8 mg/dl (1.7-2.4); Potassium 4.2 mmol/L (3.5-5.1); Sodium 140.0 mmol/L (136-145); Total Protein 6.1 gm/dl (6.0-8.3)
[2025-07-04 04:47] LABS: INR 1.3 (0.9-1.1); Partial Thromboplastin Time 38 Seconds (21-31); Prothrombin Time 13.4 Seconds (9.0-12.0)
[2025-07-04 05:11] LABS: Hematocrit (blood only) 27.6 % (42.0-52.0); Hemoglobin 9.1 g/dl (14.0-18.0); Mean Corpuscular Hemoglobin 29.3 pg (25.0-34.0); Mean Corpuscular Volume 88.7 fL (80.0-100.0); Platelet Count 219 K/uL (130-400); RDW Standard Deviation 43.7 fL (36.4-46.3); Red Blood Count 3.11 M/uL (4.70-6.10); White Blood Count 53.00 K/ul (4.8-10.8)
[2025-07-04 05:41] LABS: Immature Granulocytes # (auto) 3.10 K/uL (0.01-0.20); Immature Granulocytes % (auto) 5.8 %; Polychromasia 1+
[2025-07-04 07:21] LABS: A calco-baum cmplx NotReported Not Detected (NotDetected); Bact fragilis Not Reported Not Detected (NotDetected); Blood Culture Id Panel See PCR Comment (NotDetected); C auris Not Reported Not Detected (NotDetected); Calbicans Not Reported Not Detected (NotDetected); Candida glabrata Not Reported Not Detected (NotDetected); Candida krusei Not Reported Not Detected (NotDetected); Cneoformans/gatti Not Reported Not Detected (NotDetected); Cparapsilosis Not Reported Not Detected (NotDetected); Ctropicalis Not Reported Not Detected (NotDetected); E cloacae compx Not Reported Not Detected (NotDetected); Efaecalis Not Reported DETECTED (NotDetected); Efaecium Not Reported Not Detected (NotDetected); Enterobacterales Not Reported Not Detected (NotDetected); Escherichia coli Not Reported Not Detected (NotDetected); H influenzae Not Reported Not Detected (NotDetected); K aerogenes Not Reported Not Detected (NotDetected); Koxytoca Not Reported Not Detected (NotDetected); Kpneumoniae grp Not Reported Not Detected (NotDetected); Lmonocyt Not Reported Not Detected (NotDetected); N meningitidis Not Reported Not Detected (NotDetected); P aeruginosa Not Reported Not Detected (NotDetected); Proteus spp Not Reported Not Detected (NotDetected); Salmonella spp Not Reported Not Detected (NotDetected); Staph lugdunensis Not Reported Not Detected (NotDetected); Staph spp. Not Reported Not Detected (NotDetected); Staphaureus Not Reported Not Detected (NotDetected); Staphepi Not Reported Not Detected (NotDetected); Stenmaltophilia Not Reported Not Detected (NotDetected); Strep agal(GrpB) Not Reported Not Detected (NotDetected); Strep pneum Not Reported Not Detected (NotDetected); Strep pyog (GrpA) Not Reported Not Detected (NotDetected); Strep spp Not Reported Not Detected (NotDetected); VanAB Resistant Gene VRE Not Detected (NotDetected)
--- NOTE | 2025-07-04 07:25 | Hospitalist Progress Note ---
Date of Service July 04, 2025 Assessment & Plan (1) Acute respiratory failure with hypoxia: (2) Acute kidney injury superimposed on CKD: (3) Paroxysmal atrial fibrillation: (4) Diabetes mellitus, type II: (5) Severe aortic stenosis: (6) Chronic indwelling Yee catheter: (7) Hypotension: Plan Pt is a 79 yo male with a past medical hx of severe aortic stenosis, HFpEF EF 55%, afib on chronic eliquis, DM on insulin, chronic indwelling yee due to chronic obstruction due to BPH, RLE BKA who presents from [facility] today for accidental yee removal with sudden acute respiratory failure in the ED with progressive hypotension refractory to IVF boluses requiring pressor support and ICU level of care. #AHRF - unclear etiology as initially in the ED pt was on small amount of NC oxygen but aspiration certainly possible especially given quick progression - CXR from before and after event seem similar - bedside US done by ED provider and seems to be volume depleted - blood cultures drawn; growing gram negative bacilli - lactate very elevated on admission 8 -> 7 .> 5.6 -> 5.9 s/p 1.5 L of fluid on admission, improved further with pressor support and some more IV fluid hydration - initially empirically broad coverage zosyn + vanc (cefepime dose in the ED), changed to meropenem+dapto, MRSA nares negative #Hypotension - progressive throughout time in the ED, BPs initially permissible but progressed to 60-70/30-40s - pt does notably have severe aortic stenosis so was trialed on IV fluid boluses [id number] on admission with no meaningful improvement in blood pressures and thus transitioned to pressor support - suspect secondary to sepsis, possible urinary source - continuing to need pressor support today #Aortic stenosis, severe #HFpEF - noted on echo in April 2025 - stat echo done on day of admission; EF 50-55% with grade I diastolic dysfunct ion, mod-severe aortic stenosis - cardiology consulted #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 - baseline appears to be around Cr 3.0 the last few months - on admission Cr is 4.35 - IVF 1.5L given with caution given severe , pressor support to maintain adequate MAP - nephrology consulted #Hyperkalemia - initially K of 5.5 prior to admission, improved on repeat labs - suspect most likely related to volume contraction given pt's abnormally normal hemoglobin on admission also #Yee catheter, chronic #Hydronephrosis - pt initially here for replacement of yee, follows with urology outpatient and just had appt 2 weeks ago - yee was able to be replaced by ED staff with drainage of large amount of blood tinged urine and some clots - CT abd/pelvis did show mild to moderate hydronephrosis - urology consulted #Anemia, chronic - hemoglobin appears to be around 8.0-9.0 the last few months - no obvious source of bleeding aside from small amount of blood in the urine at time of admission - initially 12.9 -> 10.2 on day of admission pre and post fluids, suspect this drop on admission is from volume contraction more than acute blood loss #DMT2 - will do SSI only to start #Afib - rate controlled - holding metoprolol given hypotension and inability to safely po - hold eliquis in the setting of CESAR, heparin instead VTE: heparin, holding home eliquis in the setting of CESAR Admission and Anticipated Discharge Date Admission Date: July 03, 2025 Supervising Physician Co-Signing Physician Notes ATTESTATION I also saw the patient and confirmed diaz portions of the history and exam. I agree with the impression and plan in the resident documentation, and as summarized below. Subtle improvement this afternoon. Awake and alert but hearing precludes meaningful conversation. Vasopressin is now off and lynette being weaned as pressure allows. Upon exam, appears comfortable. Rate of breathing is normal. Maintaining HRs in the 70s (sinus). Blood cultures (+) Urine culture (+), sensitivities pending IMPRESSION & PLAN Acute respiratory failure with hypoxia Gram negative sepsis Gram negative Bacteremia Severe aortic stenosis 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 Subtle improvement but still critical given sepsis in the setting of severe Appreciate critical care consultation Wean pressors as able BiPAP if pulmonary status worsens Broad-spectrum antibiotics pending sensitivities Hold beta arnel for now; HR has remained surprisingly stable despite physiologic stress and holding beta blockers Additional per resident documentation Subjective Pt seen at bedside. He does look at me when I walked up to him and mumble but was difficult to understand. He overall appears more alert and awake today without respiratory distress but still not able to have meaningful conversation with him at this time. Review of Systems Review of Systems: Unable to obtain due to AMS Physical Exam Physical Exam: General: Ill appearing but more awake and alert than yesterday although difficult to understand HEENT: Normocephalic, wet oral mucosa, Cardio: Regular rate and rhythm, +murmur Resp: Breath sounds anteriorly clear to auscultation GI: Soft and nontender, nondistended, bowel sounds active Skin: Pale, cool Results & Data Results & Data Vital Signs (Past 12 Hours) Vital Signs Temp Pulse Pulse Resp BP Pulse Ox O2 Del Method 07/04/25 06:00 37.2 C 78 14 116/74 100 Oxymask 07/04/25 06:00 78 14 100 Oxymask 07/04/25 05:45 79 14 100 Oxymask 07/04/25 05:30 125/70 07/04/25 05:27 79 13 100 Oxymask 07/04/25 05:24 79 13 100 Oxymask 07/04/25 05:03 79 13 100 Oxymask 07/04/25 05:00 123/74 07/04/25 04:54 79 14 100 Oxymask 07/04/25 04:48 78 14 100 Oxymask 07/04/25 04:30 123/77 07/04/25 04:30 79 13 100 Oxymask 07/04/25 04:18 79 12 99 Oxymask 07/04/25 04:00 132/79 07/04/25 04:00 79 114/63 07/04/25 03:51 78 13 100 Oxymask 07/04/25 03:48 79 13 100 Oxymask 07/04/25 03:42 78 13 100 Oxymask 07/04/25 03:30 122/74 07/04/25 03:12 78 13 100 Oxymask 07/04/25 03:00 79 13 100 Oxymask 07/04/25 02:48 80 16 100 Oxymask 07/04/25 02:31 80 16 107/68 99 Oxymask 07/04/25 02:01 81 14 142/71 H 99 Oxymask 07/04/25 01:31 80 15 96/65 L 99 Oxymask 07/04/25 01:31 80 16 96/65 L 99 Oxymask 07/04/25 01:21 74 14 84/60 L 100 Oxymask 07/04/25 01:00 79 12 100 Oxymask 07/04/25 01:00 72 14 124/60 99 Oxymask 07/04/25 01:00 124/60 07/04/25 00:45 79 12 100 Oxymask 07/04/25 00:42 79 13 100 Oxymask 07/04/25 00:30 120/69 07/04/25 00:30 78 15 120/69 99 Oxymask 07/04/25 00:09 80 14 100 Oxymask 07/04/25 00:00 80 12 100 Oxymask 07/04/25 00:00 119/64 07/04/25 00:00 79 116/62 07/04/25 00:00 79 07/03/25 23:51 80 13 100 Oxymask 07/03/25 23:42 80 15 100 Oxymask 07/03/25 23:30 107/60 07/03/25 23:30 81 12 100 Oxymask 07/03/25 23:21 81 12 100 Oxymask 07/03/25 23:18 81 12 100 Oxymask 07/03/25 23:18 102/52 L 07/03/25 23:15 80 13 100 Oxymask 07/03/25 23:09 80 13 100 Oxymask 07/03/25 23:03 14 100 Oxymask 07/03/25 23:00 106/59 L 07/03/25 22:45 82 16 99 Oxymask 07/03/25 22:30 84 16 105/69 99 Oxymask 07/03/25 22:17 105/65 07/03/25 22:12 84 18 100 High Flow Nasal Cannula 07/03/25 22:06 86 17 97 High Flow Nasal Cannula 07/03/25 21:15 83 14 100 07/03/25 21:03 82 13 100 High Flow Nasal Cannula 07/03/25 21:00 High Flow Nasal Cannula 07/03/25 20:51 83 14 100 High Flow Nasal Cannula 07/03/25 20:36 83 17 100 High Flow Nasal Cannula 07/03/25 20:27 84 17 100 High Flow Nasal Cannula 07/03/25 20:03 83 14 100 High Flow Nasal Cannula 07/03/25 19:51 111/62 07/03/25 19:42 86 15 96 High Flow Nasal Cannula 07/03/25 19:42 70 18 100 High Flow Nasal Cannula 07/03/25 19:36 86 22 100 High Flow Nasal Cannula O2 Flow Rate FiO2 07/04/25 06:00 6 07/04/25 06:00 6 07/04/25 05:45 6 07/04/25 05:30 07/04/25 05:27 6 07/04/25 05:24 6 07/04/25 05:03 6 07/04/25 05:00 07/04/25 04:54 6 07/04/25 04:48 6 07/04/25 04:30 07/04/25 04:30 6 07/04/25 04:18 6 07/04/25 04:00 07/04/25 04:00 07/04/25 03:51 6 07/04/25 03:48 6 07/04/25 03:42 6 07/04/25 03:30 07/04/25 03:12 6 07/04/25 03:00 6 07/04/25 02:48 6 07/04/25 02:31 6 07/04/25 02:01 6 07/04/25 01:31 6 07/04/25 01:31 6 07/04/25 01:21 6 07/04/25 01:00 6 07/04/25 01:00 6 07/04/25 01:00 07/04/25 00:45 6 07/04/25 00:42 6 07/04/25 00:30 07/04/25 00:30 6 07/04/25 00:09 6 07/04/25 00:00 6 07/04/25 00:00 07/04/25 00:00 07/04/25 00:00 07/03/25 23:51 6 07/03/25 23:42 6 07/03/25 23:30 07/03/25 23:30 6 07/03/25 23:21 6 07/03/25 23:18 6 07/03/25 23:18 07/03/25 23:15 6 07/03/25 23:09 6 07/03/25 23:03 6 07/03/25 23:00 07/03/25 22:45 6 07/03/25 22:30 6 07/03/25 22:17 07/03/25 22:12 40 07/03/25 22:06 40 07/03/25 21:15 07/03/25 21:03 40 07/03/25 21:00 40 70 07/03/25 20:51 40 07/03/25 20:36 40 07/03/25 20:27 40 07/03/25 20:03 40 07/03/25 19:51 07/03/25 19:42 40 07/03/25 19:42 40 70 07/03/25 19:36 40 Resident Activity Tracking Resident Involvement: Resident Care Provided Care Provided: Adult Hospital Medicine (4) Diabetes mellitus, type II Diabetes mellitus complication detail: with foot ulcer Diabetes mellitus complication status: with skin complications Diabetes mellitus alf insulin use: with adjunct faculty for medical terminology use Qualified Code(s): E11.621 - Type 2 diabetes mellitus with foot ulcer; L97.509 - Non-pressure chronic ulcer of other part of unspecified foot with unspecified severity; Z79.4 - snf (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
--- NOTE | 2025-07-04 07:43 | Critical Care Progress Note ---
Date of Service July 04, 2025 Assessment & Plan (1) Shock: (2) Acute kidney injury superimposed on CKD: (3) Diabetes mellitus, type II: (4) Severe aortic stenosis: (5) Chronic retention of urine: Plan Reason Critically Ill: 79 YOM presents to ICU following rapid onset of shock and hypoxia, now requiring vasopressor support. Suspect severe sepsis with septic shock in the setting of severe aortic stenosis and chronic kidney disease 24-hour events: Patient mated to the ICU. Cardiology consultation and echocardiogram performed. Central line and arterial lines placed. Initiated on Mahad-Synephrine and then vasopressin added for refractory shock. Blood cultures positive with PCR positive for Proteus and Enterococcus faecalis. Antibiotics adjusted this morning. Large bowel movement last evening Recommendations Neuro - Encephalopathy acute. Unclear baseline. Patient currently awake but not following commands. Unclear baseline. Continue to follow at this point in time. Cardiac - Shock distributive vs. cardiogenic or combination of both, Severe Aortic Stenosis, Afib with RVR. Appears rate controlled currently. Still on 2 vasopressors (Mahad-Synephrine and vasopressin). May benefit from additional volume support. Encouraging that lactate is downtrending. NICOM not possible given patient's amputated lower extremity status. Try and keep slightly volume up given his aortic stenosis. 5 L positive since presentation. Holding Eliquis currently Respiratory - Acute hypoxic respiratory failure. Continue oxygen. Try to wean as tolerated. Mental status precludes use of incentive spirometry or pulmonary reexpansion techniques. GI - Constipation. Resolved. Keep n.p.o. pending improvement in hemodynamics. Stress ulcer prophylaxis. RENAL/LYTES - 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. Await nephrology consultation. Poor candidate for renal replacement therapy. Recheck blood gas this morning. Electrolytes stable - Chronic Hanna with BPH obstruction. Abnormal findings on CT of the abdomen. Await urology consultation. Mild hydro. ENDO - glycemic control per protocol. HEME - chronic anemia. No evidence of acute blood loss. Significant leukemoid reaction likely secondary to stress response and infection. Continue to trend. Eliquis on hold ID -bacteremia. Mixed PCR data showing both Proteus and Enterococcus faecalis. Change antibiotics to Unasyn which should cover both. Anticipate 7 days antimicrobial therapy. Repeat blood cultures in 24 to 48 hours to ensure clearance. If fails to improve, ID consultation may be entertained LINES/IV ACCESS - PIV, Swink, CVL, Hanna Continue use of these lines DVT PROPHYLAXIS - SCDS, subcu heparin DISPO: ICU while requiring vasopressor support I have personally spent 46 minutes of critical care time in the direct management of this patient. This is a life/limb threatening event. This includes time spent evaluating patient, direct bedside care, chart review, placing orders, interpretation of diagnostic studies, discussion with consultants, patient, and family members, as well as other required patient management activities. This time is exclusive of all separately billable procedures, and teaching time and separate from and in addition to any other critical care service time. Overall prognosis is severely guarded given the patient's poor condition at baseline. Consultation with palliative care and establishing goals of therapy would be highly appropriate. Agree with DNR/DNI status Thank you for allowing us to participate in the care of this patient. Admission and Anticipated Discharge Date Admission Date: July 03, 2025 Subjective Patient seen and examined. EMR reviewed. Review of Systems Review of Systems: Unobtainable due to reduced consciousness Physical Exam Constitutional: + ill appearing, + obese and + lethargic ; no acute distress Neck: trachea midline, no thyromegaly Respiratory: normal respiratory effort, lungs clear to auscultation Cardiovascular: Rate/Rhythm: regular rate; not tachycardic Heart Sounds: normal S1, normal S2 and + murmur Extremities: + edema Gastrointestinal (Abdomen): normal bowel sounds, soft, nontender, no hepatosplenomegaly Status post right below the knee amputation. Skin: no rashes, warm and dry Neurologic: Obtunded. Unable to follow commands Lymphatic: no cervical lymphadenopathy Results & Data Results & Data Vital Signs (Past 12 Hours) Vital Signs Temp Pulse Resp BP Pulse Ox O2 Del Method O2 Flow Rate 07/04/25 06:00 37.2 C 78 14 116/74 100 Oxymask 6 07/04/25 06:00 78 14 100 Oxymask 6 07/04/25 05:45 79 14 100 Oxymask 6 07/04/25 05:30 125/70 07/04/25 05:27 79 13 100 Oxymask 6 07/04/25 05:24 79 13 100 Oxymask 6 07/04/25 05:03 79 13 100 Oxymask 6 07/04/25 05:00 123/74 07/04/25 04:54 79 14 100 Oxymask 6 07/04/25 04:48 78 14 100 Oxymask 6 07/04/25 04:30 123/77 07/04/25 04:30 79 13 100 Oxymask 6 07/04/25 04:18 79 12 99 Oxymask 6 07/04/25 04:00 132/79 07/04/25 04:00 79 114/63 07/04/25 03:51 78 13 100 Oxymask 6 07/04/25 03:48 79 13 100 Oxymask 6 07/04/25 03:42 78 13 100 Oxymask 6 07/04/25 03:30 122/74 07/04/25 03:12 78 13 100 Oxymask 6 07/04/25 03:00 79 13 100 Oxymask 6 07/04/25 02:48 80 16 100 Oxymask 6 07/04/25 02:31 80 16 107/68 99 Oxymask 6 07/04/25 02:01 81 14 142/71 H 99 Oxymask 6 07/04/25 01:31 80 15 96/65 L 99 Oxymask 6 07/04/25 01:31 80 16 96/65 L 99 Oxymask 6 07/04/25 01:21 74 14 84/60 L 100 Oxymask 6 07/04/25 01:00 79 12 100 Oxymask 6 07/04/25 01:00 72 14 124/60 99 Oxymask 6 07/04/25 01:00 124/60 07/04/25 00:45 79 12 100 Oxymask 6 07/04/25 00:42 79 13 100 Oxymask 6 07/04/25 00:30 120/69 07/04/25 00:30 78 15 120/69 99 Oxymask 6 07/04/25 00:09 80 14 100 Oxymask 6 07/04/25 00:00 80 12 100 Oxymask 6 07/04/25 00:00 119/64 07/04/25 00:00 79 116/62 07/04/25 00:00 79 07/03/25 23:51 80 13 100 Oxymask 6 07/03/25 23:42 80 15 100 Oxymask 6 07/03/25 23:30 107/60 07/03/25 23:30 81 12 100 Oxymask 6 07/03/25 23:21 81 12 100 Oxymask 6 07/03/25 23:18 81 12 100 Oxymask 6 07/03/25 23:18 102/52 L 07/03/25 23:15 80 13 100 Oxymask 6 07/03/25 23:09 80 13 100 Oxymask 6 07/03/25 23:03 14 100 Oxymask 6 07/03/25 23:00 106/59 L 07/03/25 22:45 82 16 99 Oxymask 6 07/03/25 22:30 84 16 105/69 99 Oxymask 6 07/03/25 22:17 105/65 07/03/25 22:12 84 18 100 High Flow Nasal Cannula 40 07/03/25 22:06 86 17 97 High Flow Nasal Cannula 40 07/03/25 21:15 83 14 100 07/03/25 21:03 82 13 100 High Flow Nasal Cannula 40 07/03/25 21:00 High Flow Nasal Cannula 40 07/03/25 20:51 83 14 100 High Flow Nasal Cannula 40 07/03/25 20:36 83 17 100 High Flow Nasal Cannula 40 07/03/25 20:27 84 17 100 High Flow Nasal Cannula 40 07/03/25 20:03 83 14 100 High Flow Nasal Cannula 40 07/03/25 19:51 111/62 FiO2 07/04/25 06:00 07/04/25 06:00 07/04/25 05:45 07/04/25 05:30 07/04/25 05:27 07/04/25 05:24 07/04/25 05:03 07/04/25 05:00 07/04/25 04:54 07/04/25 04:48 07/04/25 04:30 07/04/25 04:30 07/04/25 04:18 07/04/25 04:00 07/04/25 04:00 07/04/25 03:51 07/04/25 03:48 07/04/25 03:42 07/04/25 03:30 07/04/25 03:12 07/04/25 03:00 07/04/25 02:48 07/04/25 02:31 07/04/25 02:01 07/04/25 01:31 07/04/25 01:31 07/04/25 01:21 07/04/25 01:00 07/04/25 01:00 07/04/25 01:00 07/04/25 00:45 07/04/25 00:42 07/04/25 00:30 07/04/25 00:30 07/04/25 00:09 07/04/25 00:00 07/04/25 00:00 07/04/25 00:00 07/04/25 00:00 07/03/25 23:51 07/03/25 23:42 07/03/25 23:30 07/03/25 23:30 07/03/25 23:21 07/03/25 23:18 07/03/25 23:18 07/03/25 23:15 07/03/25 23:09 07/03/25 23:03 07/03/25 23:00 07/03/25 22:45 07/03/25 22:30 07/03/25 22:17 07/03/25 22:12 07/03/25 22:06 07/03/25 21:15 07/03/25 21:03 07/03/25 21:00 70 07/03/25 20:51 07/03/25 20:36 07/03/25 20:27 07/03/25 20:03 07/03/25 19:51 Critical Care Results & Data Vital Signs (Past 12 Hours) Vital Signs Temp Pulse Resp BP Pulse Ox O2 Del Method O2 Flow Rate 07/04/25 06:00 37.2 C 78 14 116/74 100 Oxymask 6 07/04/25 06:00 78 14 100 Oxymask 6 07/04/25 05:45 79 14 100 Oxymask 6 07/04/25 05:30 125/70 07/04/25 05:27 79 13 100 Oxymask 6 07/04/25 05:24 79 13 100 Oxymask 6 07/04/25 05:03 79 13 100 Oxymask 6 07/04/25 05:00 123/74 07/04/25 04:54 79 14 100 Oxymask 6 07/04/25 04:48 78 14 100 Oxymask 6 07/04/25 04:30 123/77 07/04/25 04:30 79 13 100 Oxymask 6 07/04/25 04:18 79 12 99 Oxymask 6 07/04/25 04:00 132/79 07/04/25 04:00 79 114/63 07/04/25 03:51 78 13 100 Oxymask 6 07/04/25 03:48 79 13 100 Oxymask 6 07/04/25 03:42 78 13 100 Oxymask 6 07/04/25 03:30 122/74 07/04/25 03:12 78 13 100 Oxymask 6 07/04/25 03:00 79 13 100 Oxymask 6 07/04/25 02:48 80 16 100 Oxymask 6 07/04/25 02:31 80 16 107/68 99 Oxymask 6 07/04/25 02:01 81 14 142/71 H 99 Oxymask 6 07/04/25 01:31 80 15 96/65 L 99 Oxymask 6 07/04/25 01:31 80 16 96/65 L 99 Oxymask 6 07/04/25 01:21 74 14 84/60 L 100 Oxymask 6 07/04/25 01:00 79 12 100 Oxymask 6 07/04/25 01:00 72 14 124/60 99 Oxymask 6 07/04/25 01:00 124/60 07/04/25 00:45 79 12 100 Oxymask 6 07/04/25 00:42 79 13 100 Oxymask 6 07/04/25 00:30 120/69 07/04/25 00:30 78 15 120/69 99 Oxymask 6 07/04/25 00:09 80 14 100 Oxymask 6 07/04/25 00:00 80 12 100 Oxymask 6 07/04/25 00:00 119/64 07/04/25 00:00 79 116/62 07/04/25 00:00 79 07/03/25 23:51 80 13 100 Oxymask 6 07/03/25 23:42 80 15 100 Oxymask 6 07/03/25 23:30 107/60 07/03/25 23:30 81 12 100 Oxymask 6 07/03/25 23:21 81 12 100 Oxymask 6 07/03/25 23:18 81 12 100 Oxymask 6 07/03/25 23:18 102/52 L 07/03/25 23:15 80 13 100 Oxymask 6 07/03/25 23:09 80 13 100 Oxymask 6 07/03/25 23:03 14 100 Oxymask 6 07/03/25 23:00 106/59 L 07/03/25 22:45 82 16 99 Oxymask 6 07/03/25 22:30 84 16 105/69 99 Oxymask 6 07/03/25 22:17 105/65 07/03/25 22:12 84 18 100 High Flow Nasal Cannula 40 07/03/25 22:06 86 17 97 High Flow Nasal Cannula 40 07/03/25 21:15 83 14 100 07/03/25 21:03 82 13 100 High Flow Nasal Cannula 40 07/03/25 21:00 High Flow Nasal Cannula 40 07/03/25 20:51 83 14 100 High Flow Nasal Cannula 40 07/03/25 20:36 83 17 100 High Flow Nasal Cannula 40 07/03/25 20:27 84 17 100 High Flow Nasal Cannula 40 07/03/25 20:03 83 14 100 High Flow Nasal Cannula 40 07/03/25 19:51 111/62 FiO2 07/04/25 06:00 07/04/25 06:00 07/04/25 05:45 07/04/25 05:30 07/04/25 05:27 07/04/25 05:24 07/04/25 05:03 07/04/25 05:00 07/04/25 04:54 07/04/25 04:48 07/04/25 04:30 07/04/25 04:30 07/04/25 04:18 07/04/25 04:00 07/04/25 04:00 07/04/25 03:51 07/04/25 03:48 07/04/25 03:42 07/04/25 03:30 07/04/25 03:12 07/04/25 03:00 07/04/25 02:48 07/04/25 02:31 07/04/25 02:01 07/04/25 01:31 07/04/25 01:31 07/04/25 01:21 07/04/25 01:00 07/04/25 01:00 07/04/25 01:00 07/04/25 00:45 07/04/25 00:42 07/04/25 00:30 07/04/25 00:30 07/04/25 00:09 07/04/25 00:00 07/04/25 00:00 07/04/25 00:00 07/04/25 00:00 07/03/25 23:51 07/03/25 23:42 07/03/25 23:30 07/03/25 23:30 07/03/25 23:21 07/03/25 23:18 07/03/25 23:18 07/03/25 23:15 07/03/25 23:09 07/03/25 23:03 07/03/25 23:00 07/03/25 22:45 07/03/25 22:30 07/03/25 22:17 07/03/25 22:12 07/03/25 22:06 07/03/25 21:15 07/03/25 21:03 07/03/25 21:00 70 07/03/25 20:51 07/03/25 20:36 07/03/25 20:27 07/03/25 20:03 07/03/25 19:51 Lab & Micro Results (Past 24 Hours) RBC 3.11 M/uL (4.70-6.10) L 07/04/25 WBC 53.00 K/ul (4.8-10.8) H* 07/04/25 Hgb 9.1 g/dl (14.0-18.0) L 07/04/25 Hct 27.6 % (42.0-52.0) L 07/04/25 MCV 88.7 fL (80.0-100.0) 07/04/25 MCH 29.3 pg (25.0-34.0) 07/04/25 MCHC 33.0 g/dL (32.0-36.0) 07/04/25 RDW Standard Deviation 43.7 fL (36.4-46.3) 07/04/25 RDW Coefficient of Variation 13.5 % (11.5-14.5) 07/04/25 Plt Count 219 K/uL (130-400) 07/04/25 MPV 11.0 fL (9.4-12.4) 07/04/25 Neutrophils (%) (Auto) 88.1 % 07/04/25 Lymphocytes (%) (Auto) 2.4 % 07/04/25 Monocytes # (Auto) 1.73 K/uL (0.11-0.59) H 07/04/25 Eosinophils # (Auto) 0.05 K/uL (0.00-0.50) 07/04/25 Immature Granulocyte % (Auto) 5.8 % 07/04/25 Neutrophils # (Auto) 46.69 K/uL (1.40-6.50) H 07/04/25 Lymphocytes # (Auto) 1.26 K/uL (1.20-3.40) 07/04/25 Monocytes # (Auto) 1.73 K/uL (0.11-0.59) H 07/04/25 Eosinophils # (Auto) 0.05 K/uL (0.00-0.50) 07/04/25 Basophils # (Auto) 0.17 K/uL (0.00-0.20) 07/04/25 Immature Granulocyte # (Auto) 3.10 K/uL (0.01-0.20) H 07/04 Polychromasia 1+ 07/04/25 Echinocytes 2+ 07/04/25 Na 140 mmol/L (136-145) 07/04/25 K 4.2 mmol/L (3.5-5.1) 07/04/25 Cl 106 mmol/L (98-107) 07/04/25 CO2 23 mmol/L (21-32) 07/04/25 Anion Gap 11 (3-11) 07/04/25 BUN 64 mg/dl (6-23) H 07/04/25 Creatinine 4.05 mg/dl (0.6-1.4) H 07/04/25 BUN/Creatinine Ratio 15.8 (10-20) 07/04/25 Glu 224 mg/dl (70-99(Fasting)) H 07/04/25 Ca 8.1 mg/dl (8.6-10.3) L 07/04/25 Phosphorus Level 4.0 mg/dl (2.5-4.9) 07/04/25 Total Bilirubin 0.5 mg/dl (0.2-1.0) 07/04/25 Direct Bilirubin 0.1 mg/dl (0-0.2) 07/03/25 AST 18 U/L (13-39) 07/04/25 ALT 8 U/L (7-52) 07/04/25 Alkaline Phosphatase 58 U/L (34-104) 07/04/25 TP 6.1 gm/dl (6.0-8.3) 07/04/25 Albumin 2.8 gm/dl (3.4-5.0) L 07/04/25 Globulin 3.3 gm/dl (2.5-4.0) 07/04/25 Albumin/Globulin Ratio 0.8 (0.9-2) L 07/04/25 Mg 1.8 mg/dl (1.7-2.4) 07/04/25 04:02 Calcium Level 8.1 mg/dl (8.6-10.3) L 07/04/25 04:02 Prothromb Time International Ratio 1.3 (0.9-1.1) H 07/04/25 04 :02 Venous Blood pH 7.30 (7.36-7.41) L 07/03/25 16:50 Venous Blood Partial Pressure CO2 56 mmHg (38-50) H 07/03/25 16 :50 Venous Blood Partial Pressure O2 31 mmHg 07/03/25 16:50 Venous Blood HCO3 28 mmol/L 07/03/25 16:50 Venous Blood Base Excess 0.5 mEq/L 07/03/25 16:50 Venous Blood Oxygen Saturation < 60.0 % 07/03/25 16:50 Microbiology 07/03/25 12:25 Aerobic Blood Culture - Preliminary Blood Gram negative bacilli Anaerobic Blood Culture - Preliminary Gram negative bacilli Blood culture PCR positive for Proteus as well as Enterococcus faecalis Diagnostic Findings (Past 24 Hours) Chest X-Ray 07/03/25 12:20 EXAM: Radiograph of the Chest 1 View INDICATION: Sepsis TECHNIQUE: Frontal view of the chest. COMPARISON: 04/25/2025 FINDINGS: Lungs and pleural spaces: No consolidation or pulmonary edema. No pleural effusion or pneumothorax. Heart: Stable large cardiac shadow. Mediastinum: Normal contour. Bones/joints: No fracture, erosion or dislocation. Soft tissues: No abnormality noted. No radiopaque foreign body noted. Upper abdomen: No abnormality noted. IMPRESSION: No acute cardiopulmonary disease. ACT 112: N/A Electronically signed by Maria G Nelson 07-03-2025 13:13 PM Abdomen/Pelvis CT 07/03/25 13:19 EXAM: CT Abdomen and Pelvis Without Intravenous Contrast INDICATION: Urinary retention. TECHNIQUE: Axial computed tomography images of the abdomen and pelvis without intravenous contrast. Sagittal and coronal reformatted images were created and reviewed. This CT exam was performed using one or more of the following dose reduction techniques: automated exposure control, adjustment of the mA and/or kV according to patient size, and/or use of iterative reconstruction technique. COMPARISON: 08/12/2024 FINDINGS: Limitations: None. Lung bases: Atelectasis and/or scarring noted in the lung bases. Pleural space: No visualized pleural effusion or pneumothorax. Heart: No abnormality noted. Mediastinum: No abnormality noted. ABDOMEN: Liver: Lack of intravenous contrast limits detection of some masses. No abnormality noted. Gallbladder and bile ducts: Distended gallbladder. Pancreas: No pancreatic mass, calcification, inflammation or ductal dilation noted. Spleen: No significant abnormality noted. Adrenals: No significant abnormality noted. Kidneys and ureters: Mild right and mild to moderate left hydroureteronephrosis relatively sparing the distal right ureter. No stones. Mild symmetrical perinephric scarring noted. Stomach and bowel: Moderate amounts of formed stool in the rectum and sigmoid. No obstruction. PELVIS: Appendix: No findings to suggest acute appendicitis. Bladder: The urinary bladder is thickened and contains air and a small amount of blood. There is slight irregularity of wall thickening along the right lateral wall. Reproductive: No abnormalities noted. ABDOMEN and PELVIS: Intraperitoneal space: No free air. No significant fluid collection. Bones/joints: No acute changes. Soft tissues: There are bilateral fat-containing inguinal hernias. Vasculature: Atherosclerotic calcification of the aorta and branches. No aneurysm. Lymph nodes: No pathologically enlarged lymph nodes. IMPRESSION: 1. Cystitis with blood clots and slight irregularity of the right lateral wall. Neoplasm not completely excluded. 2. There is mild right and mild to moderate left hydroureteronephrosis possibly related to reflux. No obstructing stone noted. 3. Moderate amounts of formed stool in the rectosigmoid colon without obstruction. ACT 112: N/A Electronically signed by Maria G Nelson 07-03-2025 2:25 PM Chest X-Ray 07/03/25 14:32 Chest radiograph, one view History: Possible aspiration Comparison: Same-day Findings: Single AP view of the chest performed. Thin area of bandlike atelectasis in the mid left lung. No focal consolidation or pleural effusion. No pneumothorax. The cardiomediastinal silhouette is within normal limits. Normal pulmonary vascularity. No evidence for lymphadenopathy. No visualized bony or soft tissue abnormality. Impression: Normal chest radiograph Electronically signed by Arron Maria 07-03-2025 4:16 PM Venous Doppler Study 07/03/25 19:15 Exam(s): US VENOUS BILATERAL LOWER EXTREMITIES EXAM: US Duplex Bilateral Lower Extremities Veins CLINICAL HISTORY: eval for DVTs. Right BKA reported. TECHNIQUE: Real-time duplex ultrasound scan of the bilateral lower extremity veins integrating B-mode two-dimensional vascular structure, Doppler spectral analysis, color flow Doppler imaging and compression. COMPARISON: No relevant prior studies available. FINDINGS: Right deep veins: No DVT in the right common femoral, femoral, proximal deep femoral or popliteal veins. The veins demonstrate normal color flow, are normally compressible, with normal phasic flow and/or augmentation response. Right superficial veins: Unremarkable. No thrombus in the saphenofemoral junction. Left deep veins: No DVT in the left common femoral, femoral, proximal deep femoral or popliteal veins. The veins demonstrate normal color flow, are normally compressible, with normal phasic flow and/or augmentation response. The interrogated calf veins are patent. Left superficial veins: Unremarkable. No thrombus in the saphenofemoral junction. Soft tissues: No acute findings. No popliteal cyst. IMPRESSION: No evidence for deep vein thrombosis involving the bilateral lower extremities. Electronically signed by: Arnoldo Staples MD 07/03/25 21:[address] 07/03/25 19:16 Exam(s): CT HEAD Without Contrast EXAM: CT Head Without Intravenous Contrast CLINICAL HISTORY: AMS. TECHNIQUE: Axial computed tomography images of the head/brain without intravenous contrast. CTDI is 37.78 mGy and DLP is 625.8 mGy-cm. Automated exposure control was utilized for the study. A dose lowering technique was utilized adhering to the principles of ALARA. COMPARISON: CT head without contrast 05/12/2024 FINDINGS: Limitations: There is motion artifact, which degrades image quality on multiple image slices. Brain: There are a few areas of decreased attenuation in the deep cerebral white matter consistent with mild small vessel ischemic/degenerative changes. The cerebral and cerebellar sulci are mildly prominent consistent with mild brain atrophy. No intracranial hemorrhage. No significant mass effect. No cortical infarct or appreciable alteration from the prior examination. Ventricles: Unremarkable. No ventriculomegaly. Bones/joints: Unremarkable. No acute fracture. Soft tissues: Unremarkable. Vasculature: Atherosclerotic disease. Sinuses: Unremarkable as visualized. No acute sinusitis. Mastoid air cells: Unremarkable as visualized. No mastoid effusion. IMPRESSION: No acute intracranial process or significant alteration from the prior examination. Electronically signed by: Arnoldo Staples MD 07/03/25 22:10 PM I & O Totals 24 Hours 07/03/25 07/04/25 07/05/25 06:59 06:59 06:59 Intake Total 5635.940 / 6291.440 711.977 / 711.977 Output Total 1159 / 1159 Balance 4476.940 / 5132.440 711.977 / 711.977 Cumulative 07/03/25 11:47 thru 07/04/25 07:03 Intake Total 6347.917 Output Total 1159 Balance 5188.917 RT Ventilator Mngmt (Last Documented) Ventilator Ordered Settings Respiratory Rate 14 07/04/25 06:00 Fraction of Inspired Oxygen 70 07/03/25 21:00 Ventilator - PT Measurements Respiratory Rate 14 Coding Level of Care Code 19492 CRITICAL CARE 1ST 30-74M Diagnoses Shock R57.9 Acute kidney injury superimposed on CKD N17.9; N18.9 Type 2 diabetes mellitus with foot ulcer, with long-term current use of insulin E11.621; L97.509; Z79.4 Diabetes mellitus rat exterminator insulin use: with rat exterminator use Diabetes mellitus complication status: with skin complications Diabetes mellitus complication detail: with foot ulcer Severe aortic stenosis I35.0 Chronic retention of urine R33.9 (3) Diabetes mellitus, type II Diabetes mellitus rat exterminator insulin use: with rat exterminator use Diabetes mellitus complication status: with skin complications Diabetes mellitus complication detail: with foot ulcer Qualified Code(s): E11.621 - Type 2 diabetes mellitus with foot ulcer; L97.509 - 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
[2025-07-04 07:44] LABS: Enterococcus faecalis DETECTED (NotDetected)
[2025-07-04 08:40] LABS: iSTAT Art Bld Gas Base Excess -4.0 meg/L (-9-1.8); iSTAT Art Bld Gas pCO2 Correct 40 mmHg (35-46); iSTAT Art Bld Gas pH Corrected 7.346 (7.35-7.45); iSTAT Arterial Blood Gas pO2 C 135
[2025-07-04] MEDS: AMPICILLIN/SULBACTAM SOD 3,000 MG/100 ML BAG IV SCH (08:42)
--- NOTE | 2025-07-04 08:42 | Nephrology Consultation ---
Date of Consultation July 04, 2025 Assessment & Plan (1) Acute kidney injury superimposed on CKD: stage 1 nonoliguric CESAR on rapidly progressive and advanced CKD in pt w/ chronic yee, new hydronephrosis. creatinine 4.2 on presentation; most recent creatinine baseline about 3-3.3 since mid May -f/u urology plans > no emergent procedure; ? if hydro relates to blocked/dislodged yee -no indication for emergent dialysis -daily bmp -cont nephrotoxin avoidance (2) UTI (urinary tract infection) due to urinary indwelling catheter: recurrent proteus pyelopnehpritis > and now w/ GNR in 2/4 bottles (Proteus species on biofire) and another set of cxs w/ GPC >> E faecalis on biofire had a dose of meropenem at 0300; had a dose of zosyn currently on unasyn which covers both (sensis 91%) and adjusted for renla function (3) Septic shock: from bacteremia +/- aspiration weaned down to 1 pressor now; continue pressor support and LR as tolerated (4) Bacteremia: has P mirabilis in urine; ? if in blood (blood cxs still reported as GNR) History of Present Illness Reason for Consultation: 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 Requesting Physician: Dr Cam Attending Physician: Anton August DO History of Present Illness 79 y/o M whom I'm asked to see for 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 was admitted yesterday evening for septic shock after presenting with acute hypoxic respiratory failure and hypotension refractory to fluid resuscitation. Referred to ED w/ concern for aspirated emesis and after yee dislodged. 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 Also w/ frequent admissions recently: -March 2025 BKA -March 2025 acute anemia hgb 6.2 -April 2025 acute heart failure, 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; P mirabilis pyelonephritis/bacteremia; d/c creatinine 3.1 Hypoxic and hypotensive in ED despite 3 x 1/2 L fluid boluses and started on pressors. Admission blood cultures w/ GNR and one w/ GPC; urine cx w/ Proteus. Admitted to ICU and started on 2 pressors >> this am weaned down to phenylphrine 1.8 mcg/kg/min. Also on LR at 115 ml/hr >> currently 57 L + on admission and > 1L UOP. Creatinine after April down trended to about 3 but last week began to uptrend again to 3.3 and was 4.2 on presentation; 4.1 today. Some gross hematuria w/ clots. WBC were 23K on admission, up to 53K today. Lactate 8 on presentation> 3.6 today Allergies Allergy/AdvReac Type Severity Reaction Status Date / Time lisinopril Allergy Severe Swelling Verified 06/21/25 13:07 of Face/Lips/Tongue hydrochlorothiazide Allergy Unknown Unknown - Unverified 06/21/25 13:07 On file w/ [facility] Home Medications Medication Instructions Recorded Confirmed Type insulin glargine 100 unit/mL (3 5 unit subcut HS 04/07/24 06/21/25 History mL) subcutaneous pen (Lantus Solostar U-100 Insulin) polyethylene glycol 3350 17 gram 17 g PO DAILY PRN constipation #14 05/17/24 06/21/25 Rx oral powder packet (Miralax) ea Saccharomyces boulardii 250 mg 250 mg PO AMHS 03/15/25 06/21/25 History capsule (Florastor) acetaminophen 325 mg tablet 650 mg PO Q6H PRN Fever greater 03/15/25 06/21/25 History (Tylenol) than 100/Pain amitriptyline 10 mg tablet 30 mg PO HS 03/15/25 06/21/25 History atorvastatin 40 mg tablet 40 mg PO HS 03/15/25 06/21/25 History bisacodyl 10 mg rectal suppository 10 mg MI DAILY PRN Constipation 03/15/25 06/21/25 History (Dulcolax (bisacodyl)) docusate sodium 100 mg tablet 100 mg PO AMHS 03/15/25 06/21/25 History finasteride 5 mg tablet 5 mg PO QAM 03/15/25 06/21/25 History glucagon 1 mg solution for 1 mg IM DIRECTED PRN 03/15/25 06/21/25 History injection (Glucagon Emergency Kit) Hypoglycemia insulin lispro 100 unit/mL 1 sliding scale dose subcut 03/15/25 06/21/25 History subcutaneous solution (Humalog USEASDIRECTD U-100 Insulin) insulin lispro 100 unit/mL 2 unit subcut TIDWMEAL 03/15/25 06/21/25 History subcutaneous solution (Humalog U-100 Insulin) magnesium hydroxide 400 mg/5 mL 2,400 mg PO DAILY PRN Constipation 03/15/25 06/21/25 History oral suspension (Milk of Magnesia) oxycodone 5 mg tablet 5 mg PO Q6H PRN Pain 03/15/25 06/21/25 History pregabalin 75 mg capsule 75 mg PO AMHS 03/15/25 06/21/25 History sennosides 8.6 mg-docusate sodium 1 tab PO AMHS constipation 03/15/25 06/21/25 History 50 mg tablet (Senokot-S) sodium phosphates 19 gram-7 118 ml MI DAILY PRN Constipation 03/15/25 06/21/25 History gram/118 mL enema (Fleet Enema) tamsulosin 0.4 mg capsule 0.4 mg PO HS 03/15/25 06/21/25 History pantoprazole 40 mg tablet,delayed 40 mg PO BID #60 tabs 03/20/25 06/21/25 Rx release apixaban 2.5 mg tablet (Eliquis) 2.5 mg PO BID #60 tabs 04/27/25 06/21/25 Rx furosemide 20 mg tablet (Lasix) 20 mg PO DAILY #30 tabs 04/27/25 06/21/25 Rx metoprolol succinate 50 mg 50 mg PO BID #60 tabs 04/27/25 06/21/25 Rx tablet,extended release 24 hr Patient History Medical History Pyelonephritis Hydronephrosis, bilateral Asymptomatic hypertensive urgency Bilateral lower leg cellulitis Blister of finger Maggot infestation CESAR (acute kidney injury) Surgical History History of ear surgery age 19, mastoid H/O shoulder surgery S/P foot surgery, left Family History Brother Diabetes Social History Smoking Status: Former smoker Tobacco Type: Cigarettes Second Hand Exposure: No; Do You Dip or Chew Tobacco: No; Hx Alcohol Use: No Hx Substance Use: No Preferred Language: Maltese Communication Ability: Impaired Communication Ability Comment: Hearing Loss. 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 Beliefs That Will Affect Care: None marital status: Current Living Situation: Personal Care Facility Current Living Situation Comment: [facility] current occupational status: retired How many Children do You have: 3 Other Information That Helps Us Care for You: No Feels Safe at Home: Yes Safety Concerns: Feels Safe At This Time during the past year weight has: remained stable Dental Care, Regularly: No Physical Activity Frequency: Does not Exercise Assistive Devices: Wheelchair Review of Systems 2 Review of Systems: Unobtainable due to reduced consciousness (pt not interactive, not answering questions) Physical Exam 2 Constitutional: well developed, well nourished, + altered mental status (opens eyes; not interactive) and + frail appearing; no acute distress Eyes: EOM intact bilaterally ENMT: Mouth: + dry oral mucous membranes Respiratory: normal respiratory effort Auscultation: + diminished lung sounds Cardiovascular: Rate/Rhythm: regular rate and regular rhythm Extremities: n o edema Gastrointestinal (Abdomen): Inspection/Auscultation: normal bowel sounds P ercussion/Palpation: abdomen soft; abdomen nontender Musculoskeletal: Extremities: 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) Skin: no rashes, warm and dry Neurologic: griffith, does not speak/diminished MS, no tremor Results & Data Vital Signs (Past 12 Hours) Vital Signs Temp Pulse Resp BP Pulse Ox O2 Del Method O2 Flow Rate 07/04/25 06:00 37.2 C 78 14 116/74 100 Oxymask 6 07/04/25 06:00 78 14 100 Oxymask 6 07/04/25 05:45 79 14 100 Oxymask 6 07/04/25 05:30 125/70 07/04/25 05:27 79 13 100 Oxymask 6 07/04/25 05:24 79 13 100 Oxymask 6 07/04/25 05:03 79 13 100 Oxymask 6 07/04/25 05:00 123/74 07/04/25 04:54 79 14 100 Oxymask 6 07/04/25 04:48 78 14 100 Oxymask 6 07/04/25 04:30 123/77 0902/25 04:30 79 13 100 Oxymask 6 07/04/25 04:18 79 12 99 Oxymask 6 07/04/25 04:00 132/79 07/04/25 04:00 79 114/63 07/04/25 03:51 78 13 100 Oxymask 6 07/04/25 03:48 79 13 100 Oxymask 6 07/04/25 03:42 78 13 100 Oxymask 6 07/04/25 03:30 122/74 07/04/25 03:12 78 13 100 Oxymask 6 07/04/25 03:00 79 13 100 Oxymask 6 07/04/25 02:48 80 16 100 Oxymask 6 07/04/25 02:31 80 16 107/68 99 Oxymask 6 07/04/25 02:01 81 14 142/71 H 99 Oxymask 6 07/04/25 01:31 80 15 96/65 L 99 Oxymask 6 07/04/25 01:31 80 16 96/65 L 99 Oxymask 6 07/04/25 01:21 74 14 84/60 L 100 Oxymask 6 07/04/25 01:00 79 12 100 Oxymask 6 07/04/25 01:00 72 14 124/60 99 Oxymask 6 07/04/25 01:00 124/60 07/04/25 00:45 79 12 100 Oxymask 6 07/04/25 00:42 79 13 100 Oxymask 6 07/04/25 00:30 120/69 07/04/25 00:30 78 15 120/69 99 Oxymask 6 07/04/25 00:09 80 14 100 Oxymask 6 07/04/25 00:00 80 12 100 Oxymask 6 07/04/25 00:00 119/64 07/04/25 00:00 79 116/62 07/04/25 00:00 79 07/03/25 23:51 80 13 100 Oxymask 6 07/03/25 23:42 80 15 100 Oxymask 6 07/03/25 23:30 107/60 07/03/25 23:30 81 12 100 Oxymask 6 07/03/25 23:21 81 12 100 Oxymask 6 07/03/25 23:18 81 12 100 Oxymask 6 07/03/25 23:18 102/52 L 07/03/25 23:15 80 13 100 Oxymask 6 07/03/25 23:09 80 13 100 Oxymask 6 07/03/25 23:03 14 100 Oxymask 6 07/03/25 23:00 106/59 L 07/03/25 22:45 82 16 99 Oxymask 6 07/03/25 22:30 84 16 105/69 99 Oxymask 6 07/03/25 22:17 105/65 07/03/25 22:12 84 18 100 High Flow Nasal Cannula 40 07/03/25 22:06 86 17 97 High Flow Nasal Cannula 40 07/03/25 21:15 83 14 100 07/03/25 21:03 82 13 100 High Flow Nasal Cannula 40 07/03/25 21:00 High Flow Nasal Cannula 40 07/03/25 20:51 83 14 100 High Flow Nasal Cannula 40 07/03/25 20:36 83 17 100 High Flow Nasal Cannula 40 07/03/25 20:27 84 17 100 High Flow Nasal Cannula 40 FiO2 07/04/25 06:00 07/04/25 06:00 07/04/25 05:45 07/04/25 05:30 07/04/25 05:27 07/04/25 05:24 07/04/25 05:03 07/04/25 05:00 07/04/25 04:54 07/04/25 04:48 07/04/25 04:30 07/04/25 04:30 07/04/25 04:18 07/04/25 04:00 07/04/25 04:00 07/04/25 03:51 07/04/25 03:48 07/04/25 03:42 07/04/25 03:30 07/04/25 03:12 07/04/25 03:00 07/04/25 02:48 07/04/25 02:31 07/04/25 02:01 07/04/25 01:31 07/04/25 01:31 07/04/25 01:21 07/04/25 01:00 07/04/25 01:00 07/04/25 01:00 07/04/25 00:45 07/04/25 00:42 07/04/25 00:30 07/04/25 00:30 07/04/25 00:09 07/04/25 00:00 07/04/25 00:00 07/04/25 00:00 07/04/25 00:00 07/03/25 23:51 07/03/25 23:42 07/03/25 23:30 07/03/25 23:30 07/03/25 23:21 07/03/25 23:18 07/03/25 23:18 07/03/25 23:15 07/03/25 23:09 07/03/25 23:03 07/03/25 23:00 07/03/25 22:45 07/03/25 22:30 07/03/25 22:17 07/03/25 22:12 07/03/25 22:06 07/03/25 21:15 07/03/25 21:03 07/03/25 21:00 70 07/03/25 20:51 07/03/25 20:36 07/03/25 20:27 Laboratory Results 07/04/25 04:02 07/04/25 04:[address] a/p 1. Cystitis with blood clots and slight irregularity of the right lateral wall. Neoplasm not completely excluded. 2. There is mild right and mild to moderate left hydroureteronephrosis possibly related to reflux. No obstructing stone noted. 3. Moderate amounts of formed stool in the rectosigmoid colon without obstruction. head CT no acute IC process CXR no acute process TTE 07/03 EF 50%; mod - severe (2) UTI (urinary tract infection) due to urinary indwelling catheter Indwelling urinary catheter type: indwelling urethral catheter Encounter type: subsequent encounter Qualified Code(s): T83.511D - Infection and inflammatory reaction due to indwelling urethral catheter, subsequent encounter; N39.0 - Urinary tract infection, site not specified
--- NOTE | 2025-07-04 08:45 | XRay Report ---
EXAM: XR chest 1V portable CLINICAL HISTORY: eval lung wilson for edema/effusion/opacity TECHNIQUE: An X-ray image of the chest is obtained in AP projection. COMPARISON: CXR dated 07/03/2025. FINDINGS: Pulmonary Parenchyma: Unchanged subtle haziness in bilateral lower zones, possiblity of pulmonary infiltrates cannot be ruled out. Unchanged thin atelectatic bands at the lower zone bilaterally. No pulmonary nodules are identified. No evidence of pleural effusion or pleural thickening. Heart and Mediastinum: Heart size and shape are normal. No mediastinal widening or masses. No hilar or mediastinal lymphadenopathy. Bony Thorax: Bony thorax appears intact without fractures or deformities. Spondylotic changes and mild dextroconvex scoliosis in thoracic spine. Soft Tissues: Soft tissues overlying the chest wall are unremarkable. IMPRESSION: 1. Unchanged subtle haziness in bilateral lower zones, possiblity of pulmonary infiltrates cannot be ruled out. 2. Unchanged thin atelectatic bands at the lower zone bilaterally. 3. No significant interval changes. 4. Clinical correlation is suggested. Electronically signed by Zafar Giang 07-04-2025 08:44 AM
[2025-07-04] MEDS: ALBUMIN 25% 25 GM/100 ML VIAL IV SCH (09:00)
[2025-07-04] MEDS: CALCIUM CHLORIDE 10% 1,000 MG in DEXTROSE 5% 50 ML IV STA (09:10)
[2025-07-04] MEDS: SODIUM BICARB 8.4% INJ 50 MEQ/50 ML SYR IV STA (09:21)
--- NOTE | 2025-07-04 10:43 | Electrocardiogram Report ---
Test Reason : Blood Pressure : */* mmHG Vent. Rate : 68 BPM Atrial Rate : 68 BPM P-R Int : 202 ms QRS Dur : 120 ms QT Int : 446 ms P-R-T Axes : 109 -60 29 degrees QTcB Int : 474 ms Normal sinus rhythm with sinus arrhythmia Right bundle branch block Left anterior fascicular block Bifascicular block Minimal voltage criteria for LVH, may be normal variant Abnormal ECG When compared with ECG of 25-Apr-2025 09:51, T wave inversion less evident in Inferior leads Nonspecific T wave abnormality no longer evident in Lateral leads Confirmed by Arron Jennings ([id number] on 07/04/2025 10:42:59 AM Referred By: [facility] Confirmed By: Arron Jennings
--- NOTE | 2025-07-04 11:07 | Cardiology Progress Note ---
Date of Service July 04, 2025 Assessment & Plan (1) Acute respiratory failure with hypoxia: (2) Acute kidney injury superimposed on CKD: (3) Paroxysmal atrial fibrillation: (4) Diabetes mellitus, type II: (5) Severe aortic stenosis: (6) Chronic indwelling Yee catheter: (7) Hypotension: (8) Septic shock: (9) Bacteremia: Plan 79 Y M admitted to the ICU through the ER where he was transferred from nursing facility after his Yee catheter became dislodged. Patient reportedly had decreased responsiveness with suspected aspiration of vomitus at the nursing facility. In the emergency department, patient apparently became hypoxic and hypotensive. Initial lab work was remarkable for an elevated lactate level. He was given 3 successive 500 cc fluid boluses, and nursing after several attempts was able to reinsert Yee catheter with prompt evacuation of about 600 cc of bloody urine with clots. Patient was also started on pressors with improvement of BP. Patient has h/o severe for which he follows with the valve clinic, however TAVR has been delayed due to issues with sepsis and acute infections. 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 HFpEF EF 55%, PAF on Eliquis, DM, chronic indwelling Yee due to chronic obstruction due to BPH, RLE BKA. Acute bacteremia/sepsis - -+ blood cultures - Enterococcus faecalis and proteus species -Continue antibiotics/pressors -WBC is 53, lactate remains elevated -CESAR -echo was technically difficult: LVEF normal at 50-55%; Moderate/severe ; Not a candidate for LUCI at this time given acute respiratory status. Possible aspiration pneumonia -patient is DNR/DNI -requiring high flow O2 continue antibiocis Hematuria with chronic yee which became dislodged as an outpatient and re- inserted -Urine culture pending -continue broad spectrum antibiotics -Given gross hematuria - eliquis on hold. CESAR secondary to sepsis - nephrology following Chronic HFpEF with severe -appeared hypovolemic on arrival. Treated with IV fluids -Monitor fluid and respiratory status with IV fluids and severe -diuretics currently on hold -follows with valve clinic as an outpatient but has not been a candidate for TAVR due to repeat infections. 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 retirement prognosis is poor. Consider palliative care consult to discuss goals of care. Case discussed with Dr. Oreilly I spent a total of 45 minutes on the date of service in preparation, delivery, and documentation of the care provided to this patient, excluding any time spent in the performance of separately billed services. Shelley Russell PA-C Department of Cardiology, [facility] This chart was completed in part utilizing Speech Voice Recognition Software. Grammatical errors, random word insertions, pronoun errors, and incomplete sentences are an occasional consequence of this system due to software limitations, ambient noise, and hardware issues. Any formal questions or concerns about the content, text, or information contained within the body of this dictation should be directly addressed to the provider for clarification. Admission and Anticipated Discharge Date Admission Date: July 03, 2025 Supervising Physician Co-Signing Physician Notes I have personally performed a history and physical examination on the patient. I have reviewed the advance practitioner's documentation, and I agree with, and take responsibility for the plan of care. 79-year-old male with severe sepsis and moderate to severe aortic valve stenosis per echocardiogram. Patient is a poor historian. Denies chest pain or shortness of breath. Recommend restart beta-arnel therapy as blood pressure allows. Antibiotics as internal medicine/critical care team. Wean Mahad- Synephrine as tolerated. History of paroxysmal atrial fibrillation, however, currently sinus rhythm in the 70s and 80s. Eliquis on hold due to gross hematuria. I spent a total of 30 minutes on the date of service in preparation, delivery, and documentation of the care provided to this patient, excluding any time spent in the performance of separately billed services. Carlos Oreilly DO, [facility] Subjective Patient more awake/alert this morning compared to notes yesterday. Patient is known to be extremely hard of hearing and communication has always been difficult. Review of systems unable to be performed. Resting comfortably. Remains on pressors. Review of Systems Review of Systems: Unobtainable due to cognitive status Physical Exam Constitutional: + obese and + lethargic; no acute distre ss Neck: trachea midline, no thyromegaly Respiratory: normal respiratory effort, lungs clear to auscultation Cardiovascular: Rate/Rhythm: regular rate; not tachycardic Heart Sounds: normal S1, normal S2 and + murmur Extremities: + edema (Right AKA ) Gastrointestinal (Abdomen): normal bowel sounds, soft, nontender, no hepatosplenomegaly Status post right below the knee amputation. Skin: no rashes, warm and dry Neurologic: Obtunded. Unable to follow commands Results & Data Vital Signs (Past 12 Hours) Vital Signs Temp Pulse Resp BP Pulse Ox O2 Del Method O2 Flow Rate 07/04/25 08:25 Oxymask 4 07/04/25 06:00 37.2 C 78 14 116/74 100 Oxymask 6 07/04/25 06:00 78 14 100 Oxymask 6 07/04/25 05:45 79 14 100 Oxymask 6 07/04/25 05:30 125/70 07/04/25 05:27 79 13 100 Oxymask 6 07/04/25 05:24 79 13 100 Oxymask 6 07/04/25 05:03 79 13 100 Oxymask 6 07/04/25 05:00 123/74 07/04/25 04:54 79 14 100 Oxymask 6 07/04/25 04:48 78 14 100 Oxymask 6 07/04/25 04:30 123/77 07/04/25 04:30 79 13 100 Oxymask 6 07/04/25 04:18 79 12 99 Oxymask 6 07/04/25 04:00 132/79 07/04/25 04:00 79 114/63 07/04/25 03:51 78 13 100 Oxymask 6 07/04/25 03:48 79 13 100 Oxymask 6 07/04/25 03:42 78 13 100 Oxymask 6 07/04/25 03:30 122/74 07/04/25 03:12 78 13 100 Oxymask 6 07/04/25 03:00 79 13 100 Oxymask 6 07/04/25 02:48 80 16 100 Oxymask 6 07/04/25 02:31 80 16 107/68 99 Oxymask 6 07/04/25 02:01 81 14 142/71 H 99 Oxymask 6 07/04/25 01:31 80 15 96/65 L 99 Oxymask 6 07/04/25 01:31 80 16 96/65 L 99 Oxymask 6 07/04/25 01:21 74 14 84/60 L 100 Oxymask 6 07/04/25 01:00 79 12 100 Oxymask 6 07/04/25 01:00 72 14 124/60 99 Oxymask 6 07/04/25 01:00 124/60 07/04/25 00:45 79 12 100 Oxymask 6 07/04/25 00:42 79 13 100 Oxymask 6 07/04/25 00:30 120/69 07/04/25 00:30 78 15 120/69 99 Oxymask 6 07/04/25 00:09 80 14 100 Oxymask 6 07/04/25 00:00 80 12 100 Oxymask 6 07/04/25 00:00 119/64 07/04/25 00:00 79 116/62 07/04/25 00:00 79 07/03/25 23:51 80 13 100 Oxymask 6 07/03/25 23:42 80 15 100 Oxymask 6 07/03/25 23:30 107/60 07/03/25 23:30 81 12 100 Oxymask 6 07/03/25 23:21 81 12 100 Oxymask 6 07/03/25 23:18 81 12 100 Oxymask 6 07/03/25 23:18 102/52 L 07/03/25 23:15 80 13 100 Oxymask 6 07/03/25 23:09 80 13 100 Oxymask 6 07/03/25 23:03 14 100 Oxymask 6 Laboratory Results Cardiac Enzymes 07/03/25 07/03/25 07/03/25 Range/Units 12:25 16:50 19:15 AST 15 13 (13-39) U/L Troponin I High Sens 10.5 16.7 D (0-20) pg/ml B-Natriuretic Peptide 224 H (0-100) pg/ml 07/04/25 Range/Units 04:02 AST 18 (13-39) U/L Troponin I High Sens (0-20) pg/ml B-Natriuretic Peptide (0-100) pg/ml Coagulation 07/03/25 07/04/25 Range/Units 19:15 04:02 PT 13.2 H 13.4 H (9.0-12.0) Seconds APTT 30 38 H (21-31) Seconds B-Natriuretic Peptide 224 H (0-100) pg/ml CBC 07/03/25 07/03/25 07/04/25 Range/Units 12: 16:50 04:02 WBC 5.64 23.81 H D 53.00 H* D (4.8-10.8) K/ul RBC 4.53 L 3.55 L 3.11 L (4.70-6.10) M/uL Hgb 12.9 L 10.2 L 9.1 L (14.0-18.0) g/dl Hct 40.3 L 31.4 L 27.6 L (42.0-52.0) % Plt Count 275 239 219 (130-400) K/uL Neut # (Auto) 4.80 22.74 H 46.69 H (1.40-6.50) K/uL Lymph # (Auto) 0.76 L 0.62 L 1.26 (1.20-3.40) K/uL [place] # (Auto) 0.03 L 0.15 1.73 H (0.11-0.59) K/uL Eos # (Auto) 0.01 0.01 0.05 (0.00-0.50) K/uL Baso # (Auto) 0.03 0.06 0.17 (0.00-0.20) K/uL Comprehensive Metabolic Panel 07/03/25 07/03/25 07/04/25 Range/Units : 16:50 04:02 Sodium 142 141 140 (136-145) mmol/L Potassium 5.5 H 4.7 4.2 (3.5-5.1) mmol/L Chloride 100 103 106 (98-107) mmol/L Carbon Dioxide 29 24 23 (21-32) mmol/L BUN 65 H 71 H 64 H (6-23) mg/dl Creatinine 4.20 H 4.35 H 4.05 H D (0.6-1.4) mg/dl Glucose 241 H 162 H 224 H (70-99(Fasting)) mg/dl Calcium 10.1 8.7 8.1 L (8.6-10.3) mg/dl Direct Bilirubin 0.1 (0-0.2) mg/dl AST 15 13 18 (13-39) U/L ALT 12 8 8 (7-52) U/L Alkaline Phosphatase 76 61 58 (34-104) U/L Total Protein 8.7 H 6.7 D 6.1 (6.0-8.3) gm/dl Albumin 3.8 2.8 L 2.8 L (3.4-5.0) gm/dl Intake and Output 07/03/25 07/04/25 07/04/25 22:59 06:59 14:59 Intake Total 2133.370 / 6291.440 3002.570 / 6291.440 1075.000 / 1075.000 Output Total 757 / 1159 252 / 1159 Balance 1376.370 / 5132.440 2750.570 / 5132.440 1075.000 / 1075.000 Intake: IV 2133.370 / 6291.440 3002.570 / 6291.440 1075.000 / 1075.000 Albumin 25% 25 gm In 100 ml @ 77.5 / 77.5 50 mls/hr IV Q2H [facility] Rx#: [id number] Ampicillin/Sulbactam Sod 3,000 100 / 100 mg In 100 ml @ 200 mls/hr IV Q24H [facility] Rx#:[id number] Calcium Chloride 10% 1,000 mg 60 / 60 In Dextrose 5% 50 ml @ 240 mls/ hr IV NOW ST[facility] Rx#:[id number] Lactated Ringer's 1,000 ml @ 1000 / 3852.917 2197.417 / 3852.917 655.5 / 655.5 115 mls/hr IV .Q8H42M [facility] Rx#: [id number] Norepinephrine/D5w 4 mg In 250 33.370 / 33.370 ml @ 0.05 MCG/KG/MIN 14.625 mls /hr IV .Q17H6M [facility] Rx#:[id number] Phenylephrine/Nss 100 mg In 250 228.810 / 228.810 91.855 / 91.855 ml @ 2.8 MCG/KG/MIN 32.718 mls /hr IV .Q7H39M [facility] Rx#:[id number] Phenylephrine/Nss 25 mg In 250 500.000 / 987.005 487.005 / 987.005 ml @ 4 MCG/KG/MIN 187.2 mls/hr IV .Q1H21M [facility] Rx#:[id number] Piperacillin/Tazobactam 4.5 gm 100 / 100 In 100 ml @ 200 mls/hr IV NOW ONE Rx#:[id number] Sodium Chloride 0.9% 500 ml @ 500 / 500 999 mls/hr IV .Q31M [facility] Rx#: [id number] Vasopressin 20 units In Sodium 89.338 / 89.338 90.145 / 90.145 Chloride 0.9% 100 ml @ 0.04 UNIT/MIN 12.12 mls/hr IV . Q8H20M [facility] Rx#:[id number] Oral 0 / 0 Output: Urine Amount (Catheter) 755 / 1005 250 / 1005 Coude 755 / 1005 250 / 1005 # Bowel Movements 2 / 4 Other: Other Intake Source NPO NPO Weight 77.9 kg 83.4 kg Weight Measurement Method Built in Bedscale Built in Bedscale Diagnostic Findings Telemetry reviewed: NSR wiht HR in the s Enterobacterales (PCR) DETECTED (NotDetected) A 07/03/25 12:25 Enterococc faecalis PCR DETECTED (NotDetected) A 07/03/25 13:27 Proteus species (PCR) DETECTED (NotDetected) A 07/03/25 12:25 Chest X-Ray 07/04/25 06:00 FINDINGS: Pulmonary Parenchyma: Unchanged subtle haziness in bilateral lower zones, possiblity of pulmonary infiltrates cannot be ruled out. Unchanged thin atelectatic bands at the lower zone bilaterally. No pulmonary nodules are identified. No evidence of pleural effusion or pleural thickening. Heart and Mediastinum: Heart size and shape are normal. No mediastinal widening or masses. No hilar or mediastinal lymphadenopathy. Bony Thorax: Bony thorax appears intact without fractures or deformities. Spondylotic changes and mild dextroconvex scoliosis in thoracic spine. Soft Tissues: Soft tissues overlying the chest wall are unremarkable. IMPRESSION: 1. Unchanged subtle haziness in bilateral lower zones, possiblity of pulmonary infiltrates cannot be ruled out. 2. Unchanged thin atelectatic bands at the lower zone bilaterally. 3. No significant interval changes. 4. Clinical correlation is suggested. Electronically signed by Zafar Giang 07-04-2025 08:44 AM Medications Administered Current Inpatient Medications Dextrose (Dextrose 50% 50 Ml Syringe) 25 - 50 ml IV UD PRN; Protocol PRN Reason: Hypoglycemia Protocol Stop: 08/02/25 18:48 Glucagon (Glucagon For Inj 1 Mg Vial) 1 mg SQ UD PRN; Protocol PRN Reason: Hypoglycemia Protocol Stop: 08/02/25 18:48 Glucose (Glucose 40% Gel 15 Gm Tube) 15 - 30 gm PO UD PRN; Protocol PRN Reason: Hypoglycemia Protocol Stop: 08/02/25 18:48 Glucose (Glucose 10 Tab/Tube) 4 - 8 tab PO UD PRN; Protocol PRN Reason: Hypoglycemia Protocol Stop: 08/02/25 18:48 Heparin Sodium (Porcine) (Heparin Sod 5,000 Unit/0.5 Ml Vial) 5,000 units SQ Q12 [facility] Stop: 08/02/25 20:59 Last Admin: 07/04/25 07:59 Dose: 5,000 units Vasopressin 20 units/ Sodium (Chloride) 101 mls @ 0 mls/hr IV .Q0M [facility] Stop: 08/02/25 18:59 Last Infusion: 07/04/25 10:00 Dose: 0 unit/min, 0 mls/hr Lactated Ringer's (Lr) 1,000 mls @ 115 mls/hr IV .Q8H42M [facility] Stop: 07/06/25 20:29 Last Admin: 07/04/25 07:00 Dose: 115 mls/hr Phenylephrine HCl (Phenylephrine/Nss) 100 mg in 250 mls @ 18.696 mls/hr IV .[id number] [facility]; Protocol Stop: 08/02/25 23:45 Last Infusion: 07/04/25 10:31 Dose: 1.6 mcg/kg/min, 18.7 mls/hr Ampicillin Sodium/Sulbactam Sodium (Unasyn) 3,000 mg in 100 mls @ 200 mls/hr IV Q24H [facility] Stop: 07/11/25 08:59 Last Infusion: 07/04/25 09:29 Dose: Infused Albumin Human (Albumin 25%) 25 gm in 100 mls @ 50 mls/hr IV Q2H [facility] Stop: 07/04/25 12:29 Last Admin: 07/04/25 10:33 Dose: 50 mls/hr Insulin Aspart (Insulin Aspart Per Unit Charge) 0 units SC Q6 [facility] Stop: 08/03/25 00:29 Last Admin: 07/04/25 06:35 Dose: 2 units Miscellaneous (Carbohydrates For Hypoglycemia ) 15 - 30 gm PO UD PRN PRN Reason: Hypoglycemia Protocol Stop: 08/02/25 18:48 PG Care Time/CCT Total # of Minutes Spent Total Time Spent with Patient: Total time spent is greater than 50% in coordination of care (as documented) at patient's floor/unit and/or counseling patient: 45 minutes Coding Level of Care Code 69506 SUB INP/OBS CARE 3/50MIN Diagnoses Acute respiratory failure with hypoxia J96.01 Acute kidney injury superimposed on CKD N17.9; N18.9 Paroxysmal atrial fibrillation I48.0 Type 2 diabetes mellitus with foot ulcer, with long-term current use of insulin E11.621; L97.509; Z79.4 Diabetes mellitus complication detail: with foot ulcer Diabetes mellitus complication status: with skin complications Diabetes mellitus detention insulin use: with longitudinal float operator use Severe aortic stenosis I35.0 Chronic indwelling Yee catheter Z97.8 Hypotension I95.9 Septic shock A41.9; R65.21 Bacteremia R78.81 (4) Diabetes mellitus, type II Diabetes mellitus complication detail: with foot ulcer Diabetes mellitus complication status: with skin complications Diabetes mellitus longitudinal float operator insulin use: with longitudinal float operator use Qualified Code(s): E11.621 - Type 2 diabetes mellitus with foot ulcer; L97.509 - Non-pressure chronic ulcer of other part of unspecified foot with unspecified severity; Z79.4 - mail carrier (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
--- NOTE | 2025-07-04 13:39 | Urology Consultation ---
Date of Consultation July 04, 2025 Assessment & Plan (1) Chronic retention of urine: (2) BPH w urinary obs/LUTS: (3) Acute UTI: Plan 79yo male admitted to ICU with acute respiratory failure, 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, complicated UTI. Remains in ICU on vasopressors. Afebrile. Labs today-WBCs up to 53, hemoglobin 9.1, creatinine 4.05 Urine culture pending Blood cultures preliminary gram-negative bacilli/gram-positive cocci Yee catheter intact and draining cloudy yellow urine with sediment CT abdomen pelvis showed mild right and mild to moderate left hydronephrosis without obstructing stone, possibly related to retention/reflux No acute intervention warranted Continue antibiotic therapy and tailor per culture sensitivities Maintain Yee catheter, okay to hand irrigate as needed for clots/obstruction Continue management per primary team/ICU Urology will follow, please call with any questions/concerns History of Present Illness Attending Physician: Anton August, DO History of Present Illness 79-year-old male who presented to the ED on 07/03/2025 for accidental yee removal with sudden acute respiratory failure. In the ED he was noted to be hypoxic and hypotensive and refractory to IVF boluses requiring pressor support and ICU admission. Yee catheter was able to be replaced by ED staff with drainage of a large amount of blood-tinged urine and clots per notes. CT abdomen pelvis was notable for mild right and mild to moderate left hydronephrosis, no obstructing stones, and cystitis with blood clot and slightly irregularity of the right lateral wall. Patient is known to the urology service, follows with Dr. Leong. History of BPH with urinary obstruction requiring chronic indwelling Yee catheter. Patient was seen at bedside today in the ICU. Awake and resting in bed. Yee intact and draining cloudy yellow urine with sediment. Allergies Allergy/AdvReac Type Severity Reaction Status Date / Time lisinopril Allergy Severe Swelling Verified 06/21/25 13:07 of Face/Lips/Tongue hydrochlorothiazide Allergy Unknown Unknown - Unverified 06/21/25 13:07 On file w/ [facility] Home Medications Medication Instructions Recorded Confirmed Type insulin glargine 100 unit/mL (3 5 unit subcut HS 04/07/24 06/21/25 History mL) subcutaneous pen (Lantus Solostar U-100 Insulin) polyethylene glycol 3350 17 gram 17 g PO DAILY PRN constipation #14 05/17/24 06/21/25 Rx oral powder packet (Miralax) ea Saccharomyces boulardii 250 mg 250 mg PO AMHS 03/15/25 06/21/25 History capsule (Florastor) acetaminophen 325 mg tablet 650 mg PO Q6H PRN Fever greater 03/15/25 06/21/25 History (Tylenol) than 100/Pain amitriptyline 10 mg tablet 30 mg PO HS 03/15/25 06/21/25 History atorvastatin 40 mg tablet 40 mg PO HS 03/15/25 06/21/25 History bisacodyl 10 mg rectal suppository 10 mg IA DAILY PRN Constipation 03/15/25 06/21/25 History (Dulcolax (bisacodyl)) docusate sodium 100 mg tablet 100 mg PO AMHS 03/15/25 06/21/25 History finasteride 5 mg tablet 5 mg PO QAM 03/15/25 06/21/25 History glucagon 1 mg solution for 1 mg IM DIRECTED PRN 03/15/25 06/21/25 History injection (Glucagon Emergency Kit) Hypoglycemia insulin lispro 100 unit/mL 1 sliding scale dose subcut 03/15/25 06/21/25 History subcutaneous solution (Humalog USEASDIRECTD U-100 Insulin) insulin lispro 100 unit/mL 2 unit subcut TIDWMEAL 03/15/25 06/21/25 History subcutaneous solution (Humalog U-100 Insulin) magnesium hydroxide 400 mg/5 mL 2,400 mg PO DAILY PRN Constipation 03/15/25 06/21/25 History oral suspension (Milk of Magnesia) oxycodone 5 mg tablet 5 mg PO Q6H PRN Pain 03/15/25 06/21/25 History pregabalin 75 mg capsule 75 mg PO AMHS 03/15/25 06/21/25 History sennosides 8.6 mg-docusate sodium 1 tab PO AMHS constipation 03/15/25 06/21/25 History 50 mg tablet (Senokot-S) sodium phosphates 19 gram-7 118 ml IA DAILY PRN Constipation 03/15/25 06/21/25 History gram/118 mL enema (Fleet Enema) tamsulosin 0.4 mg capsule 0.4 mg PO HS 03/15/25 06/21/25 History pantoprazole 40 mg tablet,delayed 40 mg PO BID #60 tabs 03/20/25 06/21/25 Rx release apixaban 2.5 mg tablet (Eliquis) 2.5 mg PO BID #60 tabs 04/27/25 06/21/25 Rx furosemide 20 mg tablet (Lasix) 20 mg PO DAILY #30 tabs 04/27/25 06/21/25 Rx metoprolol succinate 50 mg 50 mg PO BID #60 tabs 04/27/25 06/21/25 Rx tablet,extended release 24 hr Patient History Medical History Pyelonephritis Hydronephrosis, bilateral Asymptomatic hypertensive urgency Bilateral lower leg cellulitis Blister of finger Maggot infestation CESAR (acute kidney injury) Surgical History History of ear surgery age 19, mastoid H/O shoulder surgery S/P foot surgery, left Family History Brother Diabetes Social History Smoking Status: Former smoker Tobacco Type: Cigarettes Second Hand Exposure: No; Do You Dip or Chew Tobacco: No; Hx Alcohol Use: No Hx Substance Use: No Preferred Language: [place] Communication Ability: Impaired Communication Ability Comment: Hearing Loss. 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 current occupational status: retired How many Children do You have: 3 Other Information That Helps Us Care for You: No Feels Safe at Home: Yes Safety Concerns: Feels Safe At This Time during the past year weight has: remained stable Dental Care, Regularly: No Physical Activity Frequency: Does not Exercise Assistive Devices: Wheelchair Review of Systems Review of Systems: Unobtainable due to cognitive status Physical Exam Constitutional: + ill appearing; no acute distress Respiratory: no respiratory distress and no labored breathing Skin: No visible rashes or lesions to exposed skin areas Neurologic: awake Psychiatric: Orientation: alert (opens eyes, does not answer questions) Genitourinary: Yee intact Results & Data Vital Signs (Past 12 Hours) Vital Signs Temp Pulse Resp BP Pulse Ox O2 Del Method O2 Del Method 07/04/25 12:20 High Flow Nasal Cannula 07/04/25 12:18 77 17 99 Oxymask 07/04/25 12:03 77 20 98 07/04/25 12:00 95/54 L 07/04/25 12:00 95/54 L 07/04/25 11:54 77 19 97 07/04/25 11:45 77 18 97 07/04/25 11:31 91/50 L 07/04/25 11:31 91/50 L 07/04/25 11:24 79 19 97 07/04/25 11:21 80 20 97 07/04/25 11:00 79 19 97 07/04/25 11:00 84/54 L 07/04/25 11:00 84/54 L 07/04/25 11:00 84/54 L 07/04/25 10:45 81 19 95 07/04/25 10:39 82 18 96 07/04/25 10:18 85 24 96 07/04/25 10:00 83 23 91 07/04/25 09:48 82 17 07/04/25 09:33 82 21 92 07/04/25 09:30 119/72 07/04/25 09:21 78 18 96 Oxymask 07/04/25 09:18 78 20 98 07/04/25 09:01 114/71 07/04/25 09:00 78 18 100 07/04/25 08:31 118/63 07/04/25 08:31 118/63 07/04/25 08:31 118/63 07/04/25 08:31 118/63 07/04/25 08:30 78 18 100 07/04/25 08:25 Oxymask 07/04/25 08:15 78 20 96 07/04/25 08:00 78 18 98 07/04/25 07:48 78 17 100 07/04/25 07:36 79 24 100 07/04/25 07:32 124/64 07/04/25 07:32 124/64 07/04/25 07:27 81 18 99 07/04/25 07:24 81 21 99 07/04/25 07:06 83 35 H 100 Oxymask 07/04/25 06:00 37.2 C 78 14 116/74 100 Oxymask 07/04/25 06:00 78 14 100 Oxymask 07/04/25 05:45 79 14 100 Oxymask 07/04/25 05:30 125/70 07/04/25 05:27 79 13 100 Oxymask 07/04/25 05:24 79 13 100 Oxymask 07/04/25 05:03 79 13 100 Oxymask 07/04/25 05:00 123/74 07/04/25 04:54 79 14 100 Oxymask 07/04/25 04:48 78 14 100 Oxymask 07/04/25 04:30 123/77 07/04/25 04:30 79 13 100 Oxymask 07/04/25 04:18 79 12 99 Oxymask 07/04/25 04:00 132/79 07/04/25 04:00 79 114/63 07/04/25 03:51 78 13 100 Oxymask 07/04/25 03:48 79 13 100 Oxymask 07/04/25 03:42 78 13 100 Oxymask 07/04/25 03:30 122/74 07/04/25 03:12 78 13 100 Oxymask 07/04/25 03:00 79 13 100 Oxymask 07/04/25 02:48 80 16 100 Oxymask 07/04/25 02:31 80 16 107/68 99 Oxymask 07/04/25 02:01 81 14 142/71 H 99 Oxymask 07/04/25 01:31 80 15 96/65 L 99 Oxymask 07/04/25 01:31 80 16 96/65 L 99 Oxymask 07/04/25 01:21 74 14 84/60 L 100 Oxymask 07/04/25 01:00 79 12 100 Oxymask 07/04/25 01:00 72 14 124/60 99 Oxymask 07/04/25 01:00 124/60 07/04/25 00:45 79 12 100 Oxymask 07/04/25 00:42 79 13 100 Oxymask O2 Flow Rate O2 Flow Rate 07/04/25 12:20 4 07/04/25 12:18 2 07/04/25 12:03 07/04/25 12:00 07/04/25 12:00 07/04/25 11:54 07/04/25 11:45 07/04/25 11:31 07/04/25 11:31 07/04/25 11:24 07/04/25 11:21 07/04/25 11:00 07/04/25 11:00 07/04/25 11:00 07/04/25 11:00 07/04/25 10:45 07/04/25 10:39 07/04/25 10:18 07/04/25 10:00 07/04/25 09:48 07/04/25 09:33 07/04/25 09:30 07/04/25 09:21 4 07/04/25 09:18 07/04/25 09:01 07/04/25 09:00 07/04/25 08:31 07/04/25 08:31 07/04/25 08:31 07/04/25 08:31 07/04/25 08:30 07/04/25 08:25 4 07/04/25 08:15 07/04/25 08:00 07/04/25 07:48 07/04/25 07:36 07/04/25 07:32 07/04/25 07:32 07/04/25 07:27 07/04/25 07:24 07/04/25 07:06 6 07/04/25 06:00 6 07/04/25 06:00 6 07/04/25 05:45 6 07/04/25 05:30 07/04/25 05:27 6 07/04/25 05:24 6 07/04/25 05:03 6 07/04/25 05:00 07/04/25 04:54 6 07/04/25 04:48 6 07/04/25 04:30 07/04/25 04:30 6 07/04/25 04:18 6 07/04/25 04:00 07/04/25 04:00 07/04/25 03:51 6 07/04/25 03:48 6 07/04/25 03:42 6 07/04/25 03:30 07/04/25 03:12 6 07/04/25 03:00 6 07/04/25 02:48 6 07/04/25 02:31 6 07/04/25 02:01 6 07/04/25 01:31 6 07/04/25 01:31 6 07/04/25 01:21 6 07/04/25 01:00 6 07/04/25 01:00 6 07/04/25 01:00 07/04/25 00:45 6 07/04/25 00:42 6 PG Care Time/CCT Total # of Minutes Spent Total Time Spent with Patient: Total time spent is greater than 50% in coordination of care (as documented) at patient's floor/unit and/or counseling patient: Coding Level of Care Code 78087 INT INP/OBS CARE 2/55MIN Diagnoses Chronic retention of urine R33.9 BPH w urinary obs/LUTS N40.1; N13.8 Acute UTI N39.0
[2025-07-05] MEDS: D5W AND LACTATED RINGERS 1,000 ML IV SCH (00:36)
[2025-07-05 04:39] LABS: Hematocrit (blood only) 23.4 % (42.0-52.0); Hemoglobin 7.5 g/dl (14.0-18.0); Mean Corpuscular Hemoglobin 28.4 pg (25.0-34.0); Mean Corpuscular Volume 88.6 fL (80.0-100.0); Platelet Count 152 K/uL (130-400); RDW Standard Deviation 44.6 fL (36.4-46.3); Red Blood Count 2.64 M/uL (4.70-6.10); White Blood Count 27.65 K/ul (4.8-10.8)
[2025-07-05 04:56] LABS: Alanine Aminotransferase 11.0 U/L (7-52); Albumin Globulin Ratio 0.9 (0.9-2); Alkaline Phosphatase 55.0 U/L (34-104); Anion Gap 11.0 (3-11); Bilirubin,Total 0.5 mg/dl (0.2-1.0); Blood Urea Nitrogen 68.0 mg/dl (6-23); Calcium 8.6 mg/dl (8.6-10.3); Carbon Dioxide 26.0 mmol/L (21-32); Chloride 107.0 mmol/L (98-107); Creatinine Clr Calc Pharmacy 13.6 ml/min; Globulin 3.4 gm/dl (2.5-4.0); Glucose 120.0 mg/dl (70-99(Fasting)); Magnesium 1.8 mg/dl (1.7-2.4); Potassium 4.0 mmol/L (3.5-5.1); Sodium 144.0 mmol/L (136-145); Total Protein 6.3 gm/dl (6.0-8.3)
[2025-07-05 05:10] LABS: Dohle Bodies 1+; Immature Granulocytes # (auto) 1.80 K/uL (0.01-0.20); Immature Granulocytes % (auto) 6.5 %
--- NOTE | 2025-07-05 06:58 | Hospitalist Progress Note ---
Date of Service July 05, 2025 Assessment & Plan (1) Acute respiratory failure with hypoxia: (2) Acute kidney injury superimposed on CKD: (3) Paroxysmal atrial fibrillation: (4) Diabetes mellitus, type II: (5) Severe aortic stenosis: (6) Chronic indwelling Yee catheter: (7) Hypotension: Plan Pt is a 79 yo male with a past medical hx of severe aortic stenosis, HFpEF EF 55%, afib on chronic eliquis, DM on insulin, chronic indwelling yee due to chronic obstruction due to BPH, RLE BKA who presents from [facility] today for accidental yee removal with sudden acute respiratory failure in the ED with progressive hypotension refractory to IVF boluses requiring pressor support and ICU level of care. #AHRF - unclear etiology as initially in the ED pt was on small amount of NC oxygen but aspiration certainly possible especially given quick progression - CXR from before and after event seem similar - bedside US done by ED provider and seems to be volume depleted - blood cultures drawn; growing gram negative bacilli - lactate very elevated on admission 8 -> 7 .> 5.6 -> 5.9 s/p 1.5 L of fluid on admission, improved further with pressor support and some more IV fluid hydration - initially empirically broad coverage zosyn + vanc (cefepime dose in the ED), changed to meropenem+dapto and then to ampicillin, MRSA nares negative - improved, now on oxymask oxygen and breathing much more comfortably - will continue CXR daily in the morning the next 2 days and continue to wean oxygen as tolerated #Hypotension - progressive throughout time in the ED, BPs initially permissible but progressed to 60-70/30-40s - pt does notably have severe aortic stenosis so was trialed on IV fluid boluses [id number] on admission with no meaningful improvement in blood pressures and thus transitioned to pressor support - suspect secondary to sepsis, possible urinary source - discontinued off pressors the morning of 07/05 #Afib - pt went into RVR rates in the 150s the morning of 07/05 with pressures as low as 60/30s - somewhat expected given illness and he has been off his home metoprolol due to concerns of being able to safely po - seen by cardio, given lopressor dose by ICU, IVF bolus by me, and then started on amio by cards with rate improvement #Aortic stenosis, severe #HFpEF - noted on echo in April 2025 - stat echo done on day of admission; EF 50-55% with grade I diastolic dysfunction, mod-severe aortic stenosis - cardiology consulted #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 - baseline appears to be around Cr 3.0 the last few months - on admission Cr is 4.35 which has improved some - IVF given cautiously in the setting of severe , pressor support to maintain adequate MAP for some time - nephrology consulted #Yee catheter, chronic #Hydronephrosis - pt initially here for replacement of yee, follows with urology outpatient and just had appt 2 weeks ago - yee was able to be replaced by ED staff with drainage of large amount of blood tinged urine and some clots - CT abd/pelvis did show mild to moderate hydronephrosis - urology consulted #Anemia, chronic - hemoglobin appears to be around 8.0-9.0 the last few months - no obvious source of bleeding aside from small amount of blood in the urine at time of admission - initially 12.9 -> 10.2 on day of admission pre and post fluids, suspect this drop on admission is from volume contraction more than acute blood loss - will transfuse if hemoglobin <7 or symptomatic #DMT2 - will do SSI only to start VTE: heparin, holding home eliquis in the setting of CESAR Diet: will do speech eval prior to starting a diet Dispo: came from facility, ultimate goal would be to get him back to facility Conversation today with discussed overall prognosis for him past this hospital stay is not great as he has significant comorbidities that make his current treatment and likely ongoing treatment difficult. seemed to struggle a bit with this information and states she did not know he was so sick and had not really talked about advanced directives or wishes/wants at end of life with him and not receptive at this time to further conversations on this topic, noting she has family that would want to see him but there is some discourse in the family right now making things complicated. If his clinical statues were to worsen, would touch base with her again about his level of care desires. Pt is alert and seems relatively oriented but he is just about impossible to understand a good portion of the time and still seems to zone out at times although is much improved compared to on admission. I encouraged the that any family wishing to see the pt should do so sooner rather than later given his overall clinical status at this point quite poor and if he were to really decompensate it is difficult to believe he would survive without CPR and/or vent support which are stated in writing with signature to be not what he would want. Admission and Anticipated Discharge Date Admission Date: July 03, 2025 Supervising Physician Co-Signing Physician Notes ATTESTATION I also saw the patient and confirmed diaz portions of the history and exam. I agree with the impression and plan in the resident documentation, and as summarized below. Awake and oriented; profoundly TABLE MOUNTAIN limits meaningful conversation. He seems to understand me and answers/responds appropriately. Went in Afib this AM with RVR. Pressures dropped but responded to 500 cc bolus. Was given one dose Lopressor and now on amiodarone. IMPRESSION & PLAN Acute respiratory failure with hypoxia Afib with RVR Gram negative sepsis Mixed (positive/negative) bacteremia Aortic stenosis 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 Overall improved. A-fib not surprising in the setting of acute illness with beta blockers on hold. Respiratory status improved. Mentation at baseline. Appreciate critical care and cardiology consultations Amiodarone GTT Unasyn Repeat blood cultures to document clearance Additional per resident documentation Subjective Pt seen at bedside this morning. He is able to talk at times but is very hard of hearing even with headset hearing aid on. He denies pain anywhere and states that he is hungry. He does know that he is in the hospital and the time of day. Hard to having meaningful conversation with him at length given his hearing difficulty and still at times seems drowsy. Review of Systems Review of Systems: Per HPI. Physical Exam Physical Exam: General: Mostly alert, no acute distress but moderately ill appearing haley HEENT: Normocephalic, wet oral mucosa, Cardio: Regular rate and rhythm, +murmur Resp: Breath sounds anteriorly clear to auscultation GI: Soft and nontender, nondistended, bowel sounds active Skin: Pale, cool Results & Data Results & Data Vital Signs (Past 12 Hours) Vital Signs Pulse Resp BP Pulse Ox O2 Del Method O2 Del Method O2 Flow Rate 07/05/25 05:06 77 20 94 07/05/25 05:00 110/54 L 07/05/25 04:42 78 19 97 07/05/25 04:30 78 19 97 07/05/25 04:00 80 19 97 07/05/25 03:00 82 18 98 07/05/25 02:30 77 17 97 07/05/25 02:03 78 16 96 07/05/25 02:00 114/60 07/05/25 01:51 79 16 95 07/05/25 01:30 118/57 L 07/05/25 01:21 81 17 97 07/05/25 01:18 79 20 98 07/05/25 00:54 80 19 95 07/05/25 00:30 108/56 L 07/05/25 00:21 78 16 95 07/05/25 00:09 81 17 95 07/05/25 00:00 78 07/04/25 23:30 78 14 98 07/04/25 23:30 114/75 07/04/25 23:00 78 17 97 07/04/25 22:30 105/58 L 07/04/25 22:18 78 16 97 07/04/25 22:03 76 22 96 07/04/25 22:00 107/53 L 07/04/25 21:48 78 20 97 07/04/25 21:30 107/63 07/04/25 21:12 76 18 96 07/04/25 20:54 78 18 97 07/04/25 20:30 104/52 L 07/04/25 20:21 77 10 L 97 07/04/25 20:01 106/57 L 07/04/25 19:48 76 17 97 07/04/25 19:35 Oxymask 07/04/25 19:31 98/58 L 07/04/25 19:27 75 15 97 07/04/25 19:22 Oxymask 2 07/04/25 19:03 78 20 96 07/04/25 19:00 107/51 L O2 Flow Rate 07/05/25 05:06 07/05/25 05:00 07/05/25 04:42 07/05/25 04:30 07/05/25 04:00 07/05/25 03:00 07/05/25 02:30 07/05/25 02:03 07/05/25 02:00 07/05/25 01:51 07/05/25 01:30 07/05/25 01:21 07/05/25 01:18 07/05/25 00:54 07/05/25 00:30 07/05/25 00:21 07/05/25 00:09 07/05/25 00:00 07/04/25 23:30 07/04/25 23:30 07/04/25 23:00 07/04/25 22:30 07/04/25 22:18 07/04/25 22:03 07/04/25 22:00 07/04/25 21:48 07/04/25 21:30 07/04/25 21:12 07/04/25 20:54 07/04/25 20:30 07/04/25 20:21 07/04/25 20:01 07/04/25 19:48 07/04/25 19:35 2 07/04/25 19:31 07/04/25 19:27 07/04/25 19:22 07/04/25 19:03 07/04/25 19:00 Resident Activity Tracking Resident Involvement: Resident Care Provided Care Provided: Adult Hospital Medicine (4) Diabetes mellitus, type II Diabetes mellitus complication detail: with foot ulcer Diabetes mellitus complication status: with skin complications Diabetes mellitus shelter insulin use: with 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
--- NOTE | 2025-07-05 08:44 | Critical Care Progress Note ---
Date of Service July 05, 2025 Assessment & Plan (1) Shock: (2) Acute kidney injury superimposed on CKD: (3) Diabetes mellitus, type II: (4) Severe aortic stenosis: (5) Chronic retention of urine: Plan Reason Critically Ill: 79 YOM presents to ICU following rapid onset of shock and hypoxia, now requiring vasopressor support. Suspect severe sepsis with septic shock in the setting of severe aortic stenosis and chronic kidney disease 24-hour events: Hemodynamics improved. Pressors off. Sensorium clearing. Recommendations Neuro - Encephalopathy resolved. Unclear how functional he is at baseline, out of bed to chair as tolerated Cardiac - Shock distributive vs. cardiogenic or combination of both. Improved now hemodynamically stable. Holding antihypertensives. As per cardiology. History of paroxysmal A-fib. Currently holding Eliquis and metoprolol. Respiratory - Acute hypoxic respiratory failure. Weaning oxygen. Will try incentive spirometry GI - Constipation. Resolved. Advance diet as tolerated. Stress ulcer prophylaxis. RENAL/LYTES - 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. Reviewed nephrology consultation. Poor candidate for renal replacement therapy. Electrolytes stable. Acid-base status acceptable and volume status acceptable. Management per nephrology - Chronic Hanna with BPH obstruction. Abnormal findings on CT of the abdomen. Mild hydro. Urology notes reviewed. No plans for intervention. Keep Hanna in place ENDO - glycemic control per protocol. HEME - chronic anemia. Decreased hemoglobin this morning however no signs of acute blood loss. Would transfuse for hemoglobin less than 7. Leukemoid reaction significantly better today ID -bacteremia. Mixed PCR data showing both Proteus and Enterococcus faecalis. Change antibiotics to Unasyn which should cover both. Anticipate 7 days antimicrobial therapy. Repeat blood cultures to ensure clearance LINES/IV ACCESS - PIV, [place], CVL, Hanna Continue use of these lines DVT PROPHYLAXIS - SCDS, subcu heparin DISPO: Okay to transfer to the floor. Critical care will sign off. Feel free to contact us with questions or concerns Admission and Anticipated Discharge Date Admission Date: July 03, 2025 Subjective Patient seen and examined. EMR reviewed. Discussed with bedside critical care nurse in a multidisciplinary rounds. The patient is doing better. His encephalopathy is cleared. He is been hemodynamically stable off pressors. He offers no complaints this morning Review of Systems Review of Systems: All systems reviewed & are unremarkable except as noted in Subjective Physical Exam Constitutional: + ill appearing, + obese and + lethargic ; no acute distress Neck: trachea midline, no thyromegaly Respiratory: normal respiratory effort, lungs clear to auscultation Cardiovascular: Rate/Rhythm: regular rate; not tachycardic Heart Sounds: normal S1, normal S2 and + murmur Extremities: + edema Gastrointestinal (Abdomen): normal bowel sounds, soft, nontender, no hepatosplenomegaly Skin: no rashes, warm and dry Lymphatic: no cervical lymphadenopathy Results & Data Results & Data Vital Signs (Past 12 Hours) Vital Signs Pulse Resp BP Pulse Ox O2 Flow Rate 07/05/25 07:00 76 18 91/49 L 94 2 07/05/25 05:06 77 20 94 07/05/25 05:00 110/54 L 07/05/25 04:42 78 19 97 07/05/25 04:30 78 19 97 07/05/25 04:00 80 19 97 07/05/25 03:00 82 18 98 07/05/25 02:30 77 17 97 07/05/25 02:03 78 16 96 07/05/25 02:00 114/60 07/05/25 01:51 79 16 95 07/05/25 01:30 118/57 L 07/05/25 01:21 81 17 97 07/05/25 01:18 79 20 98 07/05/25 00:54 80 19 95 07/05/25 00:30 108/56 L 07/05/25 00:21 78 16 95 07/05/25 00:09 81 17 95 07/05/25 00:00 78 07/04/25 23:30 78 14 98 07/04/25 23:30 114/75 07/04/25 23:00 78 17 97 07/04/25 22:30 105/58 L 07/04/25 22:18 78 16 97 07/04/25 22:03 76 22 96 07/04/25 22:00 107/53 L 07/04/25 21:48 78 20 97 07/04/25 21:30 107/63 07/04/25 21:12 76 18 96 07/04/25 20:54 78 18 97 Critical Care Results & Data Vital Signs (Past 12 Hours) Vital Signs Pulse Resp BP Pulse Ox O2 Flow Rate 07/05/25 07:00 76 18 91/49 L 94 2 07/05/25 05:06 77 20 94 07/05/25 05:00 110/54 L 07/05/25 04:42 78 19 97 07/05/25 04:30 78 19 97 07/05/25 04:00 80 19 97 07/05/25 03:00 82 18 98 07/05/25 02:30 77 17 97 07/05/25 02:03 78 16 96 07/05/25 02:00 114/60 07/05/25 01:51 79 16 95 07/05/25 01:30 118/57 L 07/05/25 01:21 81 17 97 07/05/25 01:18 79 20 98 07/05/25 00:54 80 19 95 07/05/25 00:30 108/56 L 07/05/25 00:21 78 16 95 07/05/25 00:09 81 17 95 07/05/25 00:00 78 07/04/25 23:30 78 14 98 07/04/25 23:30 114/75 07/04/25 23:00 78 17 97 07/04/25 22:30 105/58 L 07/04/25 22:18 78 16 97 07/04/25 22:03 76 22 96 07/04/25 22:00 107/53 L 07/04/25 21:48 78 20 97 07/04/25 21:30 107/63 07/04/25 21:12 76 18 96 07/04/25 20:54 78 18 97 Lab & Micro Results (Past 24 Hours) RBC 2.64 M/uL (4.70-6.10) L 07/05/25 WBC 27.65 K/ul (4.8-10.8) H 07/05/25 Hgb 7.1 g/dl (14.0-18.0) L 07/05/25 Hct 23.4 % (42.0-52.0) L 07/05/25 MCV 88.6 fL (80.0-100.0) 07/05/25 MCH 28.4 pg (25.0-34.0) 07/05/25 MCHC 32.1 g/dL (32.0-36.0) 07/05/25 RDW Standard Deviation 44.6 fL (36.4-46.3) 07/05/25 RDW Coefficient of Variation 13.8 % (11.5-14.5) 07/05/25 Plt Count 152 K/uL (130-400) 07/05/25 MPV 11.0 fL (9.4-12.4) 07/05/25 Neutrophils (%) (Auto) 80.6 % 07/05/25 Lymphocytes (%) (Auto) 6.6 % 07/05/25 Monocytes # (Auto) 1.40 K/uL (0.11-0.59) H 07/05/25 Eosinophils # (Auto) 0.23 K/uL (0.00-0.50) 07/05/25 Immature Granulocyte % (Auto) 6.5 % 07/05/25 Neutrophils # (Auto) 22.28 K/uL (1.40-6.50) H 07/05/25 Lymphocytes # (Auto) 1.83 K/uL (1.20-3.40) 07/05/25 Monocytes # (Auto) 1.40 K/uL (0.11-0.59) H 07/05/25 Eosinophils # (Auto) 0.23 K/uL (0.00-0.50) 07/05/25 Basophils # (Auto) 0.11 K/uL (0.00-0.20) 07/05/25 Immature Granulocyte # (Auto) 1.80 K/uL (0.01-0.20) H 07/05 Dohle Bodies 1+ 07/05/25 Na 144 mmol/L (136-145) 07/05/25 K 4.0 mmol/L (3.5-5.1) 07/05/25 Cl 107 mmol/L (98-107) 07/05/25 CO2 26 mmol/L (21-32) 07/05/25 Anion Gap 11 (3-11) 07/05/25 BUN 68 mg/dl (6-23) H 07/05/25 Creatinine 4.21 mg/dl (0.6-1.4) H 07/05/25 BUN/Creatinine Ratio 16.2 (10-20) 07/05/25 Glu 120 mg/dl (70-99(Fasting)) H 07/05/25 Ca 8.6 mg/dl (8.6-10.3) 07/05/25 Phosphorus Level 3.7 mg/dl (2.5-4.9) 07/05/25 Total Bilirubin 0.5 mg/dl (0.2-1.0) 07/05/25 AST 27 U/L (13-39) 07/05/25 ALT 11 U/L (7-52) 07/05/25 Alkaline Phosphatase 55 U/L (34-104) 07/05/25 TP 6.3 gm/dl (6.0-8.3) 07/05/25 Albumin 2.9 gm/dl (3.4-5.0) L 07/05/25 Globulin 3.4 gm/dl (2.5-4.0) 07/05/25 Albumin/Globulin Ratio 0.9 (0.9-2) 07/05/25 Mg 1.8 mg/dl (1.7-2.4) 07/05/25 04:18 Calcium Level 8.6 mg/dl (8.6-10.3) 07/05/25 04:18 Microbiology 07/03/25 13:27 Aerobic Blood Culture - Preliminary Blood Enterococcus faecalis Anaerobic Blood Culture - Final 07/03/25 12:25 Aerobic Blood Culture - Preliminary Blood Proteus mirabilis Anaerobic Blood Culture - Preliminary Proteus mirabilis 07/03/25 16:00 Urine Culture - Preliminary Urine,Straight Cath Proteus mirabilis I & O Totals 24 Hours 07/04/25 07/05/25 07/06/25 06:59 06:59 06:59 Intake Total 5635.940 / 6291.440 3463.731 / 3463.731 0 / 0 Output Total 1159 / 1159 1211 / 1211 Balance 4476.940 / 5132.440 2252.731 / 2252.731 0 / 0 Cumulative 07/03/25 11:47 thru 07/05/25 07:13 Intake Total 9099.671 Output Total 2370 Balance 6729.671 RT Ventilator Mngmt (Last Documented) Ventilator Ordered Settings Respiratory Rate 18 07/05/25 07:00 Fraction of Inspired Oxygen 70 07/03/25 21:00 Ventilator - PT Measurements Respiratory Rate 18 Coding Level of Care Code 16252 SUB INP/OBS CARE 2/35MIN Diagnoses Shock R57.9 Acute kidney injury superimposed on CKD N17.9; N18.9 Type 2 diabetes mellitus with foot ulcer, with long-term current use of insulin E11.621; L97.509; Z79.4 Diabetes mellitus halfway insulin use: with halfway use Diabetes mellitus complication status: with skin complications Diabetes mellitus complication detail: with foot ulcer Severe aortic stenosis I35.0 Chronic retention of urine R33.9 (3) Diabetes mellitus, type II Diabetes mellitus exterminator helper insulin use: with exterminator helper use Diabetes mellitus complication status: with skin complications Diabetes mellitus complication detail: with foot ulcer Qualified Code(s): E11.621 - Type 2 diabetes mellitus with foot ulcer; L97.509 - Non-pressure chronic ulcer of other part of unspecified foot with unspecified severity; Z79.4 - snf (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
[2025-07-05] MEDS ORDERED: Nursing to Pharmacy Communication SCH (10:00)
--- NOTE | 2025-07-05 10:03 | Hospitalist Consultation ---
Date of Consultation July 05, 2025 Assessment & Plan (1) Shock: (2) Bacteremia: (3) UTI (urinary tract infection) due to urinary indwelling catheter: History of Present Illness Attending Physician: Anton August DO Allergies Allergy/AdvReac Type Severity Reaction Status Date / Time lisinopril Allergy Severe Swelling Verified 06/21/25 13:07 of Face/Lips/Tongue hydrochlorothiazide Allergy Unknown Unknown - Unverified 06/21/25 13:07 On file w/ [facility] Home Medications Medication Instructions Recorded Confirmed Type insulin glargine 100 unit/mL (3 5 unit subcut HS 04/07/24 06/21/25 History mL) subcutaneous pen (Lantus Solostar U-100 Insulin) polyethylene glycol 3350 17 gram 17 g PO DAILY PRN constipation #14 05/17/24 06/21/25 Rx oral powder packet (Miralax) ea Saccharomyces boulardii 250 mg 250 mg PO AMHS 03/15/25 06/21/25 History capsule (Florastor) acetaminophen 325 mg tablet 650 mg PO Q6H PRN Fever greater 03/15/25 06/21/25 History (Tylenol) than 100/Pain amitriptyline 10 mg tablet 30 mg PO HS 03/15/25 06/21/25 History atorvastatin 40 mg tablet 40 mg PO HS 03/15/25 06/21/25 History bisacodyl 10 mg rectal suppository 10 mg LA DAILY PRN Constipation 03/15/25 06/21/25 History (Dulcolax (bisacodyl)) docusate sodium 100 mg tablet 100 mg PO AMHS 03/15/25 06/21/25 History finasteride 5 mg tablet 5 mg PO QAM 03/15/25 06/21/25 History glucagon 1 mg solution for 1 mg IM DIRECTED PRN 03/15/25 06/21/25 History injection (Glucagon Emergency Kit) Hypoglycemia insulin lispro 100 unit/mL 1 sliding scale dose subcut 03/15/25 06/21/25 History subcutaneous solution (Humalog USEASDIRECTD U-100 Insulin) insulin lispro 100 unit/mL 2 unit subcut TIDWMEAL 03/15/25 06/21/25 History subcutaneous solution (Humalog U-100 Insulin) magnesium hydroxide 400 mg/5 mL 2,400 mg PO DAILY PRN Constipation 03/15/25 06/21/25 History oral suspension (Milk of Magnesia) oxycodone 5 mg tablet 5 mg PO Q6H PRN Pain 03/15/25 06/21/25 History pregabalin 75 mg capsule 75 mg PO AMHS 03/15/25 06/21/25 History sennosides 8.6 mg-docusate sodium 1 tab PO AMHS constipation 03/15/25 06/21/25 History 50 mg tablet (Senokot-S) sodium phosphates 19 gram-7 118 ml LA DAILY PRN Constipation 03/15/25 06/21/25 History gram/118 mL enema (Fleet Enema) tamsulosin 0.4 mg capsule 0.4 mg PO HS 03/15/25 06/21/25 History pantoprazole 40 mg tablet,delayed 40 mg PO BID #60 tabs 03/20/25 06/21/25 Rx release apixaban 2.5 mg tablet (Eliquis) 2.5 mg PO BID #60 tabs 04/27/25 06/21/25 Rx furosemide 20 mg tablet (Lasix) 20 mg PO DAILY #30 tabs 04/27/25 06/21/25 Rx metoprolol succinate 50 mg 50 mg PO BID #60 tabs 04/27/25 06/21/25 Rx tablet,extended release 24 hr Patient History Medical History Pyelonephritis Hydronephrosis, bilateral Asymptomatic hypertensive urgency Bilateral lower leg cellulitis Blister of finger Maggot infestation CESAR (acute kidney injury) Surgical History History of ear surgery age 19, mastoid H/O shoulder surgery S/P foot surgery, left Family History Brother Diabetes Social History Smoking Status: Former smoker Tobacco Type: Cigarettes Second Hand Exposure: No; Do You Dip or Chew Tobacco: No; Hx Alcohol Use: No Hx Substance Use: No Preferred Language: Nigerien Communication Ability: Impaired Communication Ability Comment: Hearing Loss. Visual Impairment: Limited Hearing Ability: Use of Hearing Aid Furrier Apprentice Required: No Beliefs That Will Affect Care: None marital status: Current Living Situation: Personal Care Facility Current Living Situation Comment: [facility] current occupational status: retired How many Children do You have: 3 Other Information That Helps Us Care for You: No Feels Safe at Home: Yes Safety Concerns: Feels Safe At This Time during the past year weight has: remained stable Dental Care, Regularly: No Physical Activity Frequency: Does not Exercise Assistive Devices: Wheelchair Results & Data Results & Data Vital Signs (Past 12 Hours) Vital Signs Pulse Resp BP Pulse Ox O2 Flow Rate 07/05/25 09:00 106/53 L 07/05/25 09:00 75 15 96 07/05/25 08:30 73 15 96 07/05/25 08:30 102/52 L 07/05/25 08:00 92/51 L 07/05/25 08:00 92/51 L 07/05/25 08:00 73 15 96 07/05/25 07:41 95/49 L 07/05/25 07:33 74 16 96 07/05/25 07:30 96/48 L 07/05/25 07:30 74 16 95 07/05/25 07:00 74 07/05/25 07:00 76 18 91/49 L 94 2 07/05/25 05:06 77 20 94 07/05/25 05:00 110/54 L 07/05/25 04:42 78 19 97 07/05/25 04:30 78 19 97 07/05/25 04:00 80 19 97 07/05/25 03:00 82 18 98 07/05/25 02:30 77 17 97 07/05/25 02:03 78 16 96 07/05/25 02:00 114/60 07/05/25 01:51 79 16 95 07/05/25 01:30 118/57 L 07/05/25 01:21 81 17 97 07/05/25 01:18 79 20 98 07/05/25 00:54 80 19 95 07/05/25 00:30 108/56 L 07/05/25 00:21 78 16 95 07/05/25 00:09 81 17 95 07/05/25 00:00 78 07/04/25 23:30 78 14 98 07/04/25 23:30 114/75 07/04/25 23:00 78 17 97 07/04/25 22:30 105/58 L 07/04/25 22:18 78 16 97 07/04/25 22:03 76 22 96 07/04/25 22:00 107/53 L Laboratory Results 07/05/25 09:28 Aerobic Blood Culture - Pending Blood Anaerobic Blood Culture - Pending 07/05/25 09:28 Aerobic Blood Culture - Pending Blood Anaerobic Blood Culture - Pending 07/03/25 13:27 Aerobic Blood Culture - Preliminary Blood Enterococcus faecalis Anaerobic Blood Culture - Final 07/03/25 12:25 Aerobic Blood Culture - Preliminary Blood Proteus mirabilis Anaerobic Blood Culture - Preliminary Proteus mirabilis 07/03/25 16:00 Urine Culture - Preliminary Urine,Straight Cath Proteus mirabilis 07/05/25 07/05/25 07/04/25 07:27 04:18 12:04 WBC 27.65 H RBC 2.64 L Hgb 7.1 L 7.5 L Hct 23.4 L MCV 88.6 MCH 28.4 MCHC 32.1 RDW Std Deviation 44.6 RDW Coeff of Scott 13.8 Plt Count 152 MPV 11.0 Immature Gran % (Auto) 6.5 Neut % (Auto) 80.6 Lymph % (Auto) 6.6 [place] % (Auto) 5.1 Eos % (Auto) 0.8 Baso % (Auto) 0.4 Neut # (Auto) 22.28 H Lymph # (Auto) 1.83 [place] # (Auto) 1.40 H Eos # (Auto) 0.23 Baso # (Auto) 0.11 Immature Gran # (Auto) 1.80 H Dohle Bodies 1+ Sodium 144 Potassium 4.0 Chloride 107 Carbon Dioxide 26 Anion Gap 11 BUN 68 H Creatinine 4.21 H Est Cr Clr Drug Dosing 13.6 eGFR 13.64 BUN/Creatinine Ratio 16.2 Glucose 120 H POC Glucose (other) 76 Calcium 8.6 Phosphorus 3.7 Magnesium 1.8 Total Bilirubin 0.5 AST 27 ALT 11 Alkaline Phosphatase 55 Total Protein 6.3 Albumin 2.9 L Globulin 3.4 Albumin/Globulin Ratio 0.9 Blood Type O Positive Antibody Screen NEGATIVE 07/04/25 07/04/25 11:48 05:50 WBC RBC Hgb Hct MCV MCH MCHC RDW Std Deviation RDW Coeff of Scott Plt Count MPV Immature Gran % (Auto) Neut % (Auto) Lymph % (Auto) [place] % (Auto) Eos % (Auto) Baso % (Auto) Neut # (Auto) Lymph # (Auto) [place] # (Auto) Eos # (Auto) Baso # (Auto) Immature Gran # (Auto) Dohle Bodies Sodium Potassium Chloride Carbon Dioxide Anion Gap BUN Creatinine Est Cr Clr Drug Dosing eGFR BUN/Creatinine Ratio Glucose POC Glucose (other) 175 H 89 Calcium Phosphorus Magnesium Total Bilirubin AST ALT Alkaline Phosphatase Total Protein Albumin Globulin Albumin/Globulin Ratio Blood Type Antibody Screen Medications Administered Home Medications Medication Instructions Recorded Confirmed Last Taken insulin glargine 100 unit/mL (3 5 unit subcut HS 04/07/24 06/21/25 03/14/25 mL) subcutaneous pen (Lantus Solostar U-100 Insulin) polyethylene glycol 3350 17 gram 17 g PO DAILY PRN constipation #14 05/17/24 06/21/25 Unknown oral powder packet (Miralax) ea Saccharomyces boulardii 250 mg 250 mg PO AMHS 03/15/25 06/21/25 03/15/25 capsule (Florastor) acetaminophen 325 mg tablet 650 mg PO Q6H PRN Fever greater 03/15/25 06/21/25 Unknown (Tylenol) than 100/Pain amitriptyline 10 mg tablet 30 mg PO HS 03/15/25 06/21/25 03/14/25 atorvastatin 40 mg tablet 40 mg PO HS 03/15/25 06/21/25 03/14/25 bisacodyl 10 mg rectal suppository 10 mg LA DAILY PRN Constipation 03/15/25 06/21/25 Unknown (Dulcolax (bisacodyl)) docusate sodium 100 mg tablet 100 mg PO AMHS 03/15/25 06/21/25 03/15/25 finasteride 5 mg tablet 5 mg PO QAM 03/15/25 06/21/25 03/15/25 glucagon 1 mg solution for 1 mg IM DIRECTED PRN 03/15/25 06/21/25 Unknown injection (Glucagon Emergency Kit) Hypoglycemia insulin lispro 100 unit/mL 1 sliding scale dose subcut 03/15/25 06/21/25 03/15/25 subcutaneous solution (Humalog USEASDIRECTD U-100 Insulin) insulin lispro 100 unit/mL 2 unit subcut TIDWMEAL 03/15/25 06/21/25 03/15/25 subcutaneous solution (Humalog U-100 Insulin) magnesium hydroxide 400 mg/5 mL 2,400 mg PO DAILY PRN Constipation 03/15/25 06/21/25 Unknown oral suspension (Milk of Magnesia) oxycodone 5 mg tablet 5 mg PO Q6H PRN Pain 03/15/25 06/21/25 Unknown pregabalin 75 mg capsule 75 mg PO AMHS 03/15/25 06/21/25 03/15/25 sennosides 8.6 mg-docusate sodium 1 tab PO AMHS constipation 03/15/25 06/21/25 03/15/25 50 mg tablet (Senokot-S) sodium phosphates 19 gram-7 118 ml LA DAILY PRN Constipation 03/15/25 06/21/25 Unknown gram/118 mL enema (Fleet Enema) tamsulosin 0.4 mg capsule 0.4 mg PO HS 03/15/25 06/21/25 03/14/25 pantoprazole 40 mg tablet,delayed 40 mg PO BID #60 tabs 03/20/25 06/21/25 Unknown release apixaban 2.5 mg tablet (Eliquis) 2.5 mg PO BID #60 tabs 04/27/25 06/21/25 Unknown furosemide 20 mg tablet (Lasix) 20 mg PO DAILY #30 tabs 04/27/25 06/21/25 Unknown metoprolol succinate 50 mg 50 mg PO BID #60 tabs 04/27/25 06/21/25 Unknown tablet,extended release 24 hr Active Medications Generic Name Dose Route Start Last Admin Trade Name Tai PRN Reason Stop Dose Admin Heparin Sodium (Porcine) 5,000 units 07/03/25 21:00 07/05/25 08:53 Heparin Sod 5,000 Unit/0.5 Ml Vial SQ 08/02/25 20:59 5,000 units Q12 DARIN Administration Ampicillin Sodium/Sulbactam Sodium 3,000 mg in 100 mls @ 200 mls/hr 07/04/25 09:00 07/05/25 09:25 Unasyn IV 07/11/25 08:59 Infused Q24H DARIN Infusion Dextrose/Lactated Ringer's 1,000 mls @ 40 mls/hr 07/05/25 00:30 07/05/25 09:06 D5w And Lactated Ringers IV 07/08/25 00:29 40 mls/hr .Q24H DARIN Infusion PG Care Time/CCT Total # of Minutes Spent Total Time Spent with Patient: Total time spent is greater than 50% in coordination of care (as documented) at patient's floor/unit and/or counseling patient: Coding Diagnoses Shock R57.9 Bacteremia R78.81 Urinary tract infection associated with indwelling urethral catheter, subsequent encounter T83.511D; N39.0 Indwelling urinary catheter type: indwelling urethral catheter Encounter type: subsequent encounter (3) UTI (urinary tract infection) due to urinary indwelling catheter Indwelling urinary catheter type: indwelling urethral catheter Encounter type: subsequent encounter Qualified Code(s): T83.511D - Infection and inflammatory reaction due to indwelling urethral catheter, subsequent encounter; N39.0 - Urinary tract infection, site not specified
[2025-07-05] MEDS: SODIUM CHLORIDE 0.9% 500 ML IV ONE (10:25)
[2025-07-05] MEDS: METOPROLOL TARTRATE 1 MG/ML VIAL IV PRN (10:34)
[2025-07-05] MEDS ORDERED: AMIODARONE IV BOLUS & DRIP IV STA (11:06)
[2025-07-05] MEDS ORDERED: 0.2 MICRON FILTER SET 1 EACH IV STA (11:06)
[2025-07-05] MEDS ORDERED: STAT IV Infusion **Titration per Protocol STA (11:06)
[2025-07-05] MEDS: AMIODARONE / D5W 150 MG/100 ML BAG IV STA (11:18)
[2025-07-05] MEDS: AMIODARONE / D5W 360 MG/200 ML BAG IV ONE (11:41)
[2025-07-05] MEDS: INSULIN ASPART PER UNIT CHARGE SC SCH (12:49)
--- NOTE | 2025-07-05 14:24 | Urology Progress Note ---
Date of Service July 05, 2025 Assessment & Plan (1) Bacteremia: (2) UTI (urinary tract infection) due to urinary indwelling catheter: (3) Chronic retention of urine: (4) BPH w urinary obs/LUTS: (5) Acute kidney injury superimposed on CKD: Plan Remains in ICU. Afebrile. Now off pressors. Labs today-WBCs down from 53 -27 today, hemoglobin 7.1, creatinine 4.21 Urine culture preliminary proteus Blood cultures preliminary proteus/enterococcus; repeat pending Hanna catheter intact and draining cloudy yellow urine CT abdomen pelvis showed mild right and mild to moderate left hydronephrosis without obstructing stone, possibly related to retention/reflux Continue antibiotic therapy and tailor per culture sensitivities Continue to trend labs Maintain Hanna catheter, okay to hand irrigate as needed for clots/obstruction Continue management per primary team/ICU Urology will follow, please call with any questions/concerns Plan/case reviewed with Dr. Leong. Admission and Anticipated Discharge Date Admission Date: July 03, 2025 Subjective Patient seen at bedside this morning. Awake and resting in bed on arrival. No acute distress. Hanna draining clear yellow urine. Catheter was flushed overnight with removal of debris per nursing. Review of Systems Constitutional: as per Subjective / HPI Genitourinary: + as per Subjective / HPI Physical Exam Constitutional: + ill appearing; no acute distress Respiratory: no respiratory distress and no labored breathing Skin: No visible rashes or lesions to exposed skin areas Neurologic: awake Psychiatric: Orientation: alert, oriented to person and cooperative Genitourinary: Hanna intact Results & Data Vital Signs (Past 12 Hours) Vital Signs Temp Pulse Resp BP Pulse Ox O2 Del Method O2 Del Method 07/05/25 13:31 93/61 L 07/05/25 13:30 107 H 18 92 07/05/25 13:15 101/58 L 07/05/25 13:11 110 H 18 92 07/05/25 13:05 125 H 20 90 07/05/25 13:00 83/55 L 07/05/25 12:53 124 H 15 97 07/05/25 12:45 87/56 L 07/05/25 12:37 Oxymask 07/05/25 12:30 95/63 L 07/05/25 12:29 111 H 22 94 07/05/25 12:16 98/65 L 07/05/25 12:11 118 H 22 97 07/05/25 12:05 101 H 13 98 07/05/25 12:00 99/62 L 07/05/25 11:58 36.6 C 07/05/25 11:36 76/52 L 07/05/25 11:18 82/55 L 07/05/25 11:16 67/51 L 07/05/25 11:15 131 H 12 96 07/05/25 11:00 93/78 L 07/05/25 11:00 127 H 93/78 L 07/05/25 10:46 86/53 L 07/05/25 10:45 136 H 27 H 96 07/05/25 10:43 81/65 L 07/05/25 10:42 137 H 19 97 07/05/25 10:34 151 H 125/60 07/05/25 10:31 125/60 07/05/25 10:30 131 H 26 H 96 07/05/25 10:15 90/52 L 07/05/25 10:11 77/56 L 07/05/25 10:06 153 H 16 96 07/05/25 10:03 146 H 15 96 07/05/25 10:00 97/57 L 07/05/25 09:55 89/65 L 07/05/25 09:53 82/53 L 07/05/25 09:51 78 13 07/05/25 09:30 98/51 L 07/05/25 09:23 75 14 95 07/05/25 09:00 106/53 L 07/05/25 09:00 106/53 L 07/05/25 09:00 75 15 96 07/05/25 08:30 73 15 96 07/05/25 08:30 102/52 L 07/05/25 08:00 92/51 L 07/05/25 08:00 92/51 L 07/05/25 08:00 73 15 96 07/05/25 07:45 Oxymask 07/05/25 07:41 95/49 L 07/05/25 07:35 36.8 C 07/05/25 07:33 74 16 96 07/05/25 07:30 96/48 L 07/05/25 07:30 74 16 95 07/05/25 07:00 74 07/05/25 07:00 76 18 91/49 L 94 07/05/25 05:06 77 20 94 07/05/25 05:00 110/54 L 07/05/25 04:42 78 19 97 07/05/25 04:30 78 19 97 07/05/25 04:00 80 19 97 07/05/25 03:00 82 18 98 07/05/25 02:30 77 17 97 O2 Flow Rate O2 Flow Rate 07/05/25 13:31 07/05/25 13:30 07/05/25 13:15 07/05/25 13:11 07/05/25 13:05 07/05/25 13:00 07/05/25 12:53 07/05/25 12:45 07/05/25 12:37 2 07/05/25 12:30 07/05/25 12:29 07/05/25 12:16 07/05/25 12:11 07/05/25 12:05 07/05/25 12:00 07/05/25 11:58 07/05/25 11:36 07/05/25 11:18 07/05/25 11:16 07/05/25 11:15 07/05/25 11:00 07/05/25 11:00 07/05/25 10:46 07/05/25 10:45 07/05/25 10:43 07/05/25 10:42 07/05/25 10:34 07/05/25 10:31 07/05/25 10:30 07/05/25 10:15 07/05/25 10:11 07/05/25 10:06 07/05/25 10:03 07/05/25 10:00 07/05/25 09:55 07/05/25 09:53 07/05/25 09:51 07/05/25 09:30 07/05/25 09:23 07/05/25 09:00 07/05/25 09:00 07/05/25 09:00 07/05/25 08:30 07/05/25 08:30 07/05/25 08:00 07/05/25 08:00 07/05/25 08:00 07/05/25 07:45 2 07/05/25 07:41 07/05/25 07:35 07/05/25 07:33 07/05/25 07:30 07/05/25 07:30 07/05/25 07:00 07/05/25 07:00 2 07/05/25 05:06 07/05/25 05:00 07/05/25 04:42 07/05/25 04:30 07/05/25 04:00 07/05/25 03:00 07/05/25 02:30 PG Care Time/CCT Total # of Minutes Spent Total Time Spent with Patient: Total time spent is greater than 50% in coordination of care (as documented) at patient's floor/unit and/or counseling patient: Coding Level of Care Code 79008 SUB INP/OBS CARE MIN Diagnoses Bacteremia R78.81 Urinary tract infection associated with indwelling urethral catheter, subsequent encounter T83.511D; N39.0 Encounter type: subsequent encounter Indwelling urinary catheter type: indwelling urethral catheter Chronic retention of urine R33.9 BPH w urinary obs/LUTS N40.1; N13.8 Acute kidney injury superimposed on CKD N17.9; N18.9 (2) UTI (urinary tract infection) due to urinary indwelling catheter Encounter type: subsequent encounter Indwelling urinary catheter type: indwelling urethral catheter Qualified Code(s): T83.511D - Infection and inflammatory reaction due to indwelling urethral catheter, subsequent encounter; N39.0 - Urinary tract infection, site not specified
--- NOTE | 2025-07-05 15:15 | Nephrology Progress Note ---
Date of Service July 05, 2025 Assessment & Plan (1) Acute kidney injury superimposed on CKD: Plan: Plateaued stage 1 nonoliguric CESAR on rapidly progressive and advanced CKD in pt w/ chronic yee, new hydronephrosis. creatinine 4.2 on presentation; most recent creatinine baseline about 3-3.3 since mid May -f/u urology plans > no emergent procedure; ? if hydro relates to blocked/dislodged yee -no indication for emergent dialysis -daily bmp -cont nephrotoxin avoidance (2) Bacteremia: Plan: has P mirabilis in urine; has 2Proteus species plus enterococcus in blood recurrent bacteremia (had proteus bacteremia April as well) consider inf dzs consult (3) UTI (urinary tract infection) due to urinary indwelling catheter: Plan: recurrent proteus pyelopnephritis and another blood culture with E faecalis had a dose of meropenem at 0300; had a dose of zosyn currently on unasyn which covers both (sensis 91%) and adjusted for renal function (4) Septic shock: Plan: from bacteremia +/- aspiration off presors now Admission and Anticipated Discharge Date Admission Date: July 03, 2025 Subjective off pressors and made floor status; urology for conservative mgt family at bedside on evaluation today. Patient is extremely hard of hearing; per RN he is A&O x 3; went into A-fib this morning and currently on amio drip but has converted to sinus rhythm Review of Systems 2 Review of Systems: All systems reviewed & are unremarkable except as noted in Subjective Physical Exam 2 Constitutional: well developed, well nourished and + frail appearing; no acute distress Eyes: EOM intact bilaterally ENMT: Mouth: + dry oral mucous membranes Respiratory: normal respiratory effort Auscultation: + diminished lung sounds Cardiovascular: Rate/Rhythm: regular rate and regular rhythm Extremities: n o edema Gastrointestinal (Abdomen): Inspection/Auscultation: normal bowel sounds P ercussion/Palpation: abdomen soft; abdomen nontender Musculoskeletal: Extremities: 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) Skin: no rashes, warm and dry Results & Data Vital Signs (Past 12 Hours) Vital Signs Temp Pulse Resp BP Pulse Ox O2 Del Method O2 Del Method 07/05/25 13:31 93/61 L 07/05/25 13:30 107 H 18 92 07/05/25 13:15 101/58 L 07/05/25 13:11 110 H 18 92 07/05/25 13:05 125 H 20 90 07/05/25 13:00 83/55 L 07/05/25 12:53 124 H 15 97 07/05/25 12:45 87/56 L 07/05/25 12:37 Oxymask 07/05/25 12:30 95/63 L 07/05/25 12:29 111 H 22 94 07/05/25 12:16 98/65 L 07/05/25 12:11 118 H 22 97 07/05/25 12:05 101 H 13 98 07/05/25 12:00 99/62 L 07/05/25 11:58 36.6 C 07/05/25 11:36 76/52 L 07/05/25 11:18 82/55 L 07/05/25 11:16 67/51 L 07/05/25 11:15 131 H 12 96 07/05/25 11:00 93/78 L 07/05/25 11:00 127 H 93/78 L 07/05/25 10:46 86/53 L 07/05/25 10:45 136 H 27 H 96 07/05/25 10:43 81/65 L 07/05/25 10:42 137 H 19 97 07/05/25 10:34 151 H 125/60 07/05/25 10:31 125/60 07/05/25 10:30 131 H 26 H 96 07/05/25 10:15 90/52 L 07/05/25 10:11 77/56 L 07/05/25 10:06 153 H 16 96 07/05/25 10:03 146 H 15 96 07/05/25 10:00 97/57 L 07/05/25 09:55 89/65 L 07/05/25 09:53 82/53 L 07/05/25 09:51 78 13 07/05/25 09:30 98/51 L 07/05/25 09:23 75 14 95 07/05/25 09:00 106/53 L 07/05/25 09:00 106/53 L 07/05/25 09:00 75 15 96 07/05/25 08:30 73 15 96 07/05/25 08:30 102/52 L 07/05/25 08:00 92/51 L 07/05/25 08:00 92/51 L 07/05/25 08:00 73 15 96 07/05/25 07:45 Oxymask 07/05/25 07:41 95/49 L 07/05/25 07:35 36.8 C 07/05/25 07:33 74 16 96 07/05/25 07:30 96/48 L 07/05/25 07:30 74 16 95 07/05/25 07:00 74 07/05/25 07:00 76 18 91/49 L 94 07/05/25 05:06 77 20 94 07/05/25 05:00 110/54 L 07/05/25 04:42 78 19 97 07/05/25 04:30 78 19 97 07/05/25 04:00 80 19 97 O2 Flow Rate O2 Flow Rate 07/05/25 13:31 07/05/25 13:30 07/05/25 13:15 07/05/25 13:11 07/05/25 13:05 07/05/25 13:00 07/05/25 12:53 07/05/25 12:45 07/05/25 12:37 2 07/05/25 12:30 07/05/25 12:29 07/05/25 12:16 07/05/25 12:11 07/05/25 12:05 07/05/25 12:00 07/05/25 11:58 07/05/25 11:36 07/05/25 11:18 07/05/25 11:16 07/05/25 11:15 07/05/25 11:00 07/05/25 11:00 07/05/25 10:46 07/05/25 10:45 07/05/25 10:43 07/05/25 10:42 07/05/25 10:34 07/05/25 10:31 07/05/25 10:30 07/05/25 10:15 07/05/25 10:11 07/05/25 10:06 07/05/25 10:03 07/05/25 10:00 07/05/25 09:55 07/05/25 09:53 07/05/25 09:51 07/05/25 09:30 07/05/25 09:23 07/05/25 09:00 07/05/25 09:00 07/05/25 09:00 07/05/25 08:30 07/05/25 08:30 07/05/25 08:00 07/05/25 08:00 07/05/25 08:00 07/05/25 07:45 2 07/05/25 07:41 07/05/25 07:35 07/05/25 07:33 07/05/25 07:30 07/05/25 07:30 07/05/25 07:00 07/05/25 07:00 2 07/05/25 05:06 07/05/25 05:00 07/05/25 04:42 07/05/25 04:30 07/05/25 04:00 Laboratory Results 07/05/25 07:27 07/05/25 04:18 (3) UTI (urinary tract infection) due to urinary indwelling catheter Encounter type: subsequent encounter Indwelling urinary catheter type: i ndwelling urethral catheter Qualified Code(s): T83.511D - Infection and inflammatory reaction due to indwelling urethral catheter, subsequent encounter; N39.0 - Urinary tract infection, site not specified
--- NOTE | 2025-07-05 15:20 | Cardiology Progress Note ---
Date of Service July 05, 2025 Assessment & Plan (1) Atrial fibrillation with rapid ventricular response: (2) Septic shock: (3) Bacteremia: (4) Hypotension: (5) Aortic stenosis: (6) Acute kidney injury superimposed on CKD: Plan 79-year-old male developed paroxysmal atrial fibrillation with rapid ventricular response this a.m. Likely consequence of underlying sepsis and beta-arnel withdrawal. Remains borderline hypotensive. Recommend initiation of IV amiodarone. Resume beta-arnel as blood pressure allows. Outpatient Eliquis held on admission due to hematuria. Hemoglobin continues to trend downward to 7.1 today. No obvious source of ongoing bleeding. Continue to monitor H&H. Transfuse to maintain hemoglobin greater than 7.0. Restart anticoagulation with IV heparin or Eliquis if hemoglobin stabilizes and there are no signs/symptoms of ongoing blood loss. Admission and Anticipated Discharge Date Admission Date: July 03, 2025 Subjective 79-year-old male seen examined at the bedside. Converted to atrial fibrillation with rapid ventricular response this morning. Notes elevated heart rate. Blood pressure remains borderline hypotensive. Patient has not received beta-arnel therapy since admission. Denies chest pain or shortness of breath. Hearing impaired. Poor historian. Review of Systems Review of Systems: Unobtainable due to cognitive status Physical Exam Constitutional: + ill appearing; no acute distress Respiratory: no retractions and does not use accessory muscles Auscultation: no crackles, no rales, no rhonchi and no wheezes Cardiovascular: Rate/Rhythm: + tachycardic and + irregularly irregular Heart Sounds: normal S1, normal S2 and + murmur (3/6 late peaking systolic ejection murmur) Vessels: radial pulses present; no JVD Extremities: no edema Gastrointestinal (Abdomen): Inspection/Auscultation: abdomen normal to inspection; abdomen not distended Percussion/Palpation: abdomen soft; abdomen nontender, no guarding and abdomen not rigid Neurologic: CN's II-XI intact bilaterally and moves all extremities Results & Data Vital Signs (Past 12 Hours) Vital Signs Temp Pulse Resp BP Pulse Ox O2 Del Method O2 Del Method 07/05/25 13:31 93/61 L 07/05/25 13:30 107 H 18 92 07/05/25 13:15 101/58 L 07/05/25 13:11 110 H 18 92 07/05/25 13:05 125 H 20 90 07/05/25 13:00 83/55 L 07/05/25 12:53 124 H 15 97 07/05/25 12:45 87/56 L 07/05/25 12:37 Oxymask 07/05/25 12:30 95/63 L 07/05/25 12:29 111 H 22 94 07/05/25 12:16 98/65 L 07/05/25 12:11 118 H 22 97 07/05/25 12:05 101 H 13 98 07/05/25 12:00 99/62 L 07/05/25 11:58 36.6 C 07/05/25 11:36 76/52 L 07/05/25 11:18 82/55 L 07/05/25 11:16 67/51 L 07/05/25 11:15 131 H 12 96 07/05/25 11:00 93/78 L 07/05/25 11:00 127 H 93/78 L 07/05/25 10:46 86/53 L 07/05/25 10:45 136 H 27 H 96 07/05/25 10:43 81/65 L 07/05/25 10:42 137 H 19 97 07/05/25 10:34 151 H 125/60 07/05/25 10:31 125/60 07/05/25 10:30 131 H 26 H 96 07/05/25 10:15 90/52 L 07/05/25 10:11 77/56 L 07/05/25 10:06 153 H 16 96 07/05/25 10:03 146 H 15 96 07/05/25 10:00 97/57 L 07/05/25 09:55 89/65 L 07/05/25 09:53 82/53 L 07/05/25 09:51 78 13 07/05/25 09:30 98/51 L 07/05/25 09:23 75 14 95 07/05/25 09:00 106/53 L 07/05/25 09:00 106/53 L 07/05/25 09:00 75 15 96 07/05/25 08:30 73 15 96 07/05/25 08:30 102/52 L 07/05/25 08:00 92/51 L 07/05/25 08:00 92/51 L 07/05/25 08:00 73 15 96 07/05/25 07:45 Oxymask 07/05/25 07:41 95/49 L 07/05/25 07:35 36.8 C 07/05/25 07:33 74 16 96 07/05/25 07:30 96/48 L 07/05/25 07:30 74 16 95 07/05/25 07:00 74 07/05/25 07:00 76 18 91/49 L 94 07/05/25 05:06 77 20 94 07/05/25 05:00 110/54 L 07/05/25 04:42 78 19 97 07/05/25 04:30 78 19 97 07/05/25 04:00 80 19 97 O2 Flow Rate O2 Flow Rate 07/05/25 13:31 07/05/25 13:30 07/05/25 13:15 07/05/25 13:11 07/05/25 13:05 07/05/25 13:00 07/05/25 12:53 07/05/25 12:45 07/05/25 12:37 2 07/05/25 12:30 07/05/25 12:29 07/05/25 12:16 07/05/25 12:11 07/05/25 12:05 07/05/25 12:00 07/05/25 11:58 07/05/25 11:36 07/05/25 11:18 07/05/25 11:16 07/05/25 11:15 07/05/25 11:00 07/05/25 11:00 07/05/25 10:46 07/05/25 10:45 07/05/25 10:43 07/05/25 10:42 07/05/25 10:34 07/05/25 10:31 07/05/25 10:30 07/05/25 10:15 07/05/25 10:11 07/05/25 10:06 07/05/25 10:03 07/05/25 10:00 07/05/25 09:55 07/05/25 09:53 07/05/25 09:51 07/05/25 09:30 07/05/25 09:23 07/05/25 09:00 07/05/25 09:00 07/05/25 09:00 07/05/25 08:30 07/05/25 08:30 07/05/25 08:00 07/05/25 08:00 07/05/25 08:00 07/05/25 07:45 2 07/05/25 07:41 07/05/25 07:35 07/05/25 07:33 07/05/25 07:30 07/05/25 07:30 07/05/25 07:00 07/05/25 07:00 2 07/05/25 05:06 07/05/25 05:00 07/05/25 04:42 07/05/25 04:30 07/05/25 04:00 Laboratory Results Cardiac Enzymes 07/05/25 Range/Units 04:18 AST 27 (13-39) U/L CBC 07/05/25 07/05/25 Range/Units 04:18 07:27 WBC 27.65 H (4.8-10.8) K/ul RBC 2.64 L (4.70-6.10) M/uL Hgb 7.5 L 7.1 L (14.0-18.0) g/dl Hct 23.4 L (42.0-52.0) % Plt Count 152 (130-400) K/uL Neut # (Auto) 22.28 H (1.40-6.50) K/uL Lymph # (Auto) 1.83 (1.20-3.40) K/uL [place] # (Auto) 1.40 H (0.11-0.59) K/uL Eos # (Auto) 0.23 (0.00-0.50) K/uL Baso # (Auto) 0.11 (0.00-0.20) K/uL Comprehensive Metabolic Panel 07/05/25 Range/Units 04:18 Sodium 144 (136-145) mmol/L Potassium 4.0 (3.5-5.1) mmol/L Chloride 107 (98-107) mmol/L Carbon Dioxide 26 (21-32) mmol/L BUN 68 H (6-23) mg/dl Creatinine 4.21 H (0.6-1.4) mg/dl Glucose 120 H (70-99(Fasting)) mg/dl Calcium 8.6 (8.6-10.3) mg/dl AST 27 (13-39) U/L ALT 11 (7-52) U/L Alkaline Phosphatase 55 (34-104) U/L Total Protein 6.3 (6.0-8.3) gm/dl Albumin 2.9 L (3.4-5.0) gm/dl Intake and Output 07/05/25 07/05/25 07/05/25 06:59 14:59 22:59 Intake Total 1172.253 / 3463.731 1677.500 / 1677.500 Output Total 620 / 1211 440 / 440 Balance 552.253 / 2252.731 1237.500 / 1237.500 Intake: IV 1172.253 / 3463.731 1677.500 / 1677.500 Amiodarone / D5w 150 mg In 100 100 / 100 ml @ 600 mls/hr IV NOW STA Rx#: [id number] Ampicillin/Sulbactam Sod 3,000 100 / 100 mg In 100 ml @ 200 mls/hr IV Q24H [facility] Rx#:[id number] D5w and Lactated Ringers 1,000 977.500 / 977.500 ml @ 40 mls/hr IV .Q24H [facility] Rx# :[id number] Lactated Ringer's 1,000 ml @ 1000 / 2613.833 115 mls/hr IV .Q8H42M [facility] Rx#: [id number] Phenylephrine/Nss 100 mg In 250 172.253 / 422.253 0 / 0 ml @ 0 MCG/KG/MIN IV .Q0M [facility] Rx#:[id number] Sodium Chloride 0.9% 500 ml @ 500 / 500 999 mls/hr IV .Q31M [facility] Rx#: [id number] Output: Urine Amount (Catheter) 619 / 1209 440 / 440 Coude 619 / 1209 440 / 440 # Bowel Movements 1 / 2 Other: CBI Fluid - Amount Instilled 60 Weight 84.6 kg Weight Measurement Method Built in [facility] PG Care Time/CCT Total # of Minutes Spent Total Time Spent with Patient: Total time spent is greater than 50% in coordination of care (as documented) at patient's floor/unit and/or counseling patient: Coding Level of Care Code 52832 SUB INP/OBS CARE 3/50MIN Diagnoses Atrial fibrillation with rapid ventricular response I48.91 Septic shock A41.9; R65.21 Bacteremia R78.81 Hypotension I95.9 Aortic valve stenosis, etiology of cardiac valve disease unspecified I35.0 Cardiac valve disease etiology: etiology unspecified Acute kidney injury superimposed on CKD N17.9; N18.9 (5) Aortic stenosis Cardiac valve disease etiology: etiology unspecified Qualified Code(s): I35.0 - Nonrheumatic aortic (valve) stenosis
[2025-07-05 15:45] LABS: Hematocrit (blood only) 25.9 % (42.0-52.0); Hemoglobin 8.2 g/dl (14.0-18.0); Mean Corpuscular Hemoglobin 28.5 pg (25.0-34.0); Mean Corpuscular Volume 89.9 fL (80.0-100.0); Platelet Count 143 K/uL (130-400); RDW Standard Deviation 45.4 fL (36.4-46.3); Red Blood Count 2.88 M/uL (4.70-6.10); White Blood Count 21.30 K/ul (4.8-10.8)
[2025-07-05 16:08] LABS: Immature Granulocytes # (auto) 1.84 K/uL (0.01-0.20); Immature Granulocytes % (auto) 8.6 %
--- NOTE | 2025-07-05 16:23 | Electrocardiogram Report ---
Test Reason : Blood Pressure : */* mmHG Vent. Rate : 139 BPM Atrial Rate : * BPM P-R Int : * ms QRS Dur : 120 ms QT Int : 302 ms P-R-T Axes : * -51 126 degrees QTcB Int : 459 ms Atrial fibrillation with rapid ventricular response Right bundle branch block Left anterior fascicular block Bifascicular block Minimal voltage criteria for LVH, may be normal variant T wave abnormality, consider lateral ischemia Abnormal ECG When compared with ECG of 03-Jul-2025 12:33, Atrial fibrillation has replaced Sinus rhythm Vent. rate has increased by [address] now depressed in Anterior leads T wave inversion now evident in Lateral leads Confirmed by Arron Jennings ([id number] on 07/05/2025 4:23:28 PM Referred By: [facility] Confirmed By: Arron Jennings
[2025-07-05] MEDS: AMIODARONE / D5W 360 MG/200 ML BAG IV SCH (16:53)
[2025-07-05] MEDS ORDERED: SODIUM CHLORIDE 0.9% 100 ML IV PRN (17:22)
[2025-07-06 06:10] LABS: Hematocrit (blood only) 25.7 % (42.0-52.0); Hemoglobin 8.2 g/dl (14.0-18.0); Mean Corpuscular Hemoglobin 28.7 pg (25.0-34.0); Mean Corpuscular Volume 89.9 fL (80.0-100.0); Platelet Count 138 K/uL (130-400); RDW Standard Deviation 45.3 fL (36.4-46.3); Red Blood Count 2.86 M/uL (4.70-6.10); White Blood Count 17.37 K/ul (4.8-10.8)
[2025-07-06 06:33] LABS: Alanine Aminotransferase 15.0 U/L (7-52); Albumin Globulin Ratio 0.9 (0.9-2); Alkaline Phosphatase 63.0 U/L (34-104); Anion Gap 9.0 (3-11); Bilirubin,Total 0.4 mg/dl (0.2-1.0); Blood Urea Nitrogen 64.0 mg/dl (6-23); Calcium 8.7 mg/dl (8.6-10.3); Carbon Dioxide 28.0 mmol/L (21-32); Chloride 109.0 mmol/L (98-107); Creatinine Clr Calc Pharmacy 14.3 ml/min; Globulin 3.2 gm/dl (2.5-4.0); Glucose 160.0 mg/dl (70-99(Fasting)); Magnesium 2.0 mg/dl (1.7-2.4); Potassium 4.0 mmol/L (3.5-5.1); Sodium 146.0 mmol/L (136-145); Total Protein 6.0 gm/dl (6.0-8.3)
--- NOTE | 2025-07-06 07:26 | Hospitalist Progress Note ---
Date of Service July 06, 2025 Assessment & Plan (1) Acute respiratory failure with hypoxia: (2) Acute kidney injury superimposed on CKD: (3) Paroxysmal atrial fibrillation: (4) Diabetes mellitus, type II: (5) Severe aortic stenosis: (6) Chronic indwelling Yee catheter: (7) Hypotension: (8) Sepsis: (9) Bacteremia: Plan Pt is a 79 yo male with a past medical hx of severe aortic stenosis, HFpEF EF 55%, afib on chronic eliquis, DM on insulin, chronic indwelling yee due to chronic obstruction due to BPH, RLE BKA who presents from [facility] today for accidental yee removal with sudden acute respiratory failure in the ED with progressive hypotension refractory to IVF boluses requiring pressor support and ICU level of care. #AHRF/Sepsis/Bacteremia - Unclear etiology as initially in the ED pt was on small amount of NC oxygen but aspiration certainly possible especially given quick progression - CXR from before and after event seem similar - bedside US done by ED provider and seems to be volume depleted - blood cultures drawn; growing Enterococcus and Proteus Mirabilis, most recent Bcx negative for 24 hours - lactate very elevated on admission 8 -> 7 -> 5.6 -> 5.9 s/p 1.5 L of fluid on admission, improved further with pressor support and some more IV fluid hydration - initially empirically broad coverage zosyn + vanc (cefepime dose in the ED), changed to meropenem+dapto and then to ampicillin, MRSA nares negative - improved, oxygen titrated down to 1L and now patient is on RA and breathing much more comfortably - Continue Ampicillin coverage for 14 days for Enterococcus bacteremia, Bcx from 07/05 remains negative at 24 hours so 14 day abx course likely will continue from 07/05-07/19 unless Bcx show new growth. - CBC/BMP QAM #Hypotension - progressive throughout time in the ED, BPs initially permissible but progressed to 60-70/30-40s - pt does notably have severe aortic stenosis so was trialed on IV fluid boluses [id number] on admission with no meaningful improvement in blood pressures and thus transitioned to pressor support - suspect secondary to sepsis, possible urinary source - discontinued off pressors the morning of 07/05 - Improved, continue to monitor #Afib - pt went into RVR rates in the 150s the morning of 07/05 with pressures as low as 60/30s - somewhat expected given illness and he has been off his home metoprolol due to concerns of being able to safely po - seen by cardio, given lopressor dose by ICU, IVF bolus, and then started on amio by cards with rate improvement - Start Eliquis 2.5mg BID 07/06, Hgb has stabilized from at approximately 8.2. QAM CBC #Dysphagia - Speech therapy consulted - Speech bedside evaluation failed with concerns for aspiration, and Flouro video swallow study revealed moderate oral dysphagia - Current recommendations: Remove NPO, Minced and moist diet, thin liquids, lidded cups, no straws #Aortic stenosis, severe #HFpEF - noted on echo in April 2025 - stat echo done on day of admission; EF 50-55% with grade I diastolic dysfunction, mod-severe aortic stenosis - cardiology consulted, recs appreciated #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 - baseline appears to be around Cr 3.0 the last few months - on admission Cr is 4.35 which has improved some - IVF given cautiously in the setting of severe , pressor support to maintain adequate MAP for some time - nephrology consulted, recs appreciated #Yee catheter, chronic #Hydronephrosis - pt initially here for replacement of yee, follows with urology outpatient and just had appt 2 weeks ago - yee was able to be replaced by ED staff with drainage of large amount of blood tinged urine and some clots - CT abd/pelvis did show mild to moderate hydronephrosis - urology consulted #Anemia, chronic - hemoglobin appears to be around 8.0-9.0 the last few months - no obvious source of bleeding aside from small amount of blood in the urine at time of admission - initially 12.9 -> 10.2 on day of admission pre and post fluids, suspect this drop on admission is from volume contraction more than acute blood loss - will transfuse if hemoglobin <7 or symptomatic #DMT2- will do SSI only to start Chronic problems: GERD - 40mg Protonix QAM, typically takes 40mg BID, will start daily HLD - Atorvastatin 40mg QAM BPH: Finasteride VTE: heparin, holding home eliquis in the setting of CESAR Diet: will do speech eval prior to starting a diet Dispo: came from facility, ultimate goal would be to get him back to facility Admission and Anticipated Discharge Date Admission Date: July 03, 2025 Supervising Physician Co-Signing Physician Notes ATTESTATION I also saw the patient and confirmed diaz portions of the history and exam. I agree with the impression and plan in the resident documentation, and as summarized below. Now on 2nd floor. He is semi-reclined in bed, talking with sister and family friend. Conversation is much easier with amplification device. He is alert and oriented. Speech is clear. He is hungry. EXAM 135/79, 71, 18, 96% NC Alert and oriented. CV regular (now in sinus) Lungs generally clear. Decreased in bases although probably positional and related to effort. DATA WBC continues to trend down (17.3) HgB stable at 8.2 BUN 64, Cr 4.02 Na 146 Micro Repeat blood cultures drawn 07/05/2025 no growth at 24 hours Blood cultures upon admission proteus in one bottle and enterococcus in one bottle Urine culture upon admission proteus and providencia IMPRESSION & PLAN Acute respiratory failure with hypoxia, resolved Afib with RVR, now in NSR Gram negative sepsis Mixed (positive/negative) bacteremia Aortic stenosis 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 Overall improved. He looks really well this morning all considered. Unfortunately, failed initial swallowing study, so will remain NPO at the moment pending additional recommendations. Resume metoprolol succinate 25mg BID (home dose 50 mg BID, will increase tomorrow as parameters allow) Resume apixaban tomorrow as long as HgB is stable NPO pending additional speech evaluation Continue current antibiotics pending repeat cultures Additional per resident documentation Subjective Patient seen resting this AM. Patient went into a-fib yesterday and was placed on an amio drip prior to converting back to sinus rhythm. Patient is very hard of hearing and uses headphones with a microphone device. Patient remains afebrile and hemodynamically stable. Physical Exam Physical Exam: General: patient resting comfortably, NAD, non-toxic in appearance, answers questions appropriately. Skin: warm, dry, intact HEENT: NC/AT, anicteric sclera, conjunctiva without injection, moist mucus membranes. Heart: +S1/S2, regular, crescendo/decrescendo systolic murmur auscultated best at second intercostal space Lungs: equal air entry bilaterally, no rales/rhonchi/wheezes Abd: +BS, soft, NT/ND Ext: warm, no clubbing/cyanosis or edema Neuro: nonfocal, speech intact, no facial droop, moving all extremities. Results & Data Results & Data Vital Signs (Past 12 Hours) Vital Signs Temp Pulse Pulse Resp BP Pulse Ox O2 Del Method 07/06/25 07:11 36.8 C 71 18 134/73 97 Nasal Cannula 07/06/25 03:42 36.5 C 128 H 18 109/69 96 Nasal Cannula 07/05/25 22:57 36.7 C 117 H 16 111/65 97 Nasal Cannula 07/05/25 21:48 137 H 07/05/25 20:00 Nasal Cannula 07/05/25 19:41 36.6 C 65 18 132/59 L 98 Nasal Cannula O2 Flow Rate 07/06/25 07:11 1 07/06/25 03:42 1.0 07/05/25 22:57 1.0 07/05/25 21:48 07/05/25 20:00 2 07/05/25 19:41 1.0 Resident Activity Tracking Resident Involvement: Resident Care Provided Care Provided: Adult Hospital Medicine (4) Diabetes mellitus, type II Diabetes mellitus complication detail: with foot ulcer Diabetes mellitus complication status: with skin complications Diabetes mellitus prison insulin use: with terminal operations manager use Qualified Code(s): E11.621 - Type 2 diabetes mellitus with foot ulcer; L97.509 - Non-pressure chronic ulcer of other part of unspecified foot with unspecified severity; Z79.4 - FDC (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
[2025-07-06 07:27] LABS: ALC (manual) 3.13 K/uL (1.2-3.4); ANC (manual) 13.72 K/uL (1.4-6.5); Dohle Bodies 1+
--- NOTE | 2025-07-06 08:24 | XRay Report ---
EXAM: XR chest 1V portable CLINICAL HISTORY: Acute hypoxemic respiratory failure TECHNIQUE: An X-ray image of the chest was obtained in the AP projection. COMPARISON: 07/04/2025X-ray. FINDINGS: Pulmonary Parenchyma: There is minimal interval progression of haziness in the left lower zone. The subtle haziness in the right lower zone is unchanged. A few thin bilateral atelectatic bands are seen. There is no evidence of pleural effusion or pleural thickening. Heart and Mediastinum: The heart size and shape are normal. There is no mediastinal widening or mass. There is no hilar or mediastinal lymphadenopathy. Bony Thorax: The bony thorax appears intact without fractures or deformities. Degenerative changes are seen involving the thoracic spine, and there is bilaterally reduced glenohumeral joint space. Soft Tissues: The soft tissues overlying the chest wall are unremarkable. IMPRESSION: 1. Minimal interval progression of haziness in the left lower zone and unchanged subtle haziness in the right lower zone. 2. A few thin bilateral atelectatic bands are seen, unchanged. Clinical correlation is advised. Electronically signed by Zafar Giang 07-06-2025 08:24 AM
[2025-07-06] MEDS ORDERED: Nursing to Pharmacy Communication SCH ×2 (08:45→18:30)
[2025-07-06] MEDS: INSULIN ASPART PER UNIT CHARGE SC SCH ×2 (12:02→21:11)
--- NOTE | 2025-07-06 12:41 | Urology Progress Note ---
Date of Service July 06, 2025 Assessment & Plan (1) Bacteremia: (2) UTI (urinary tract infection) due to urinary indwelling catheter: (3) Chronic retention of urine: (4) BPH w urinary obs/LUTS: (5) Acute kidney injury superimposed on CKD: Plan 79yo male admitted with acute respiratory failure, sepsis/bacteremia, CESAR - Urology was consulted for Hanna replacement and hematuria. Patient afebrile and hemodynamically stable. Labs today-WBCs downtrending to 17.37, hemoglobin 8.2, creatinine 4.21- 4.02 today. Urine culture preliminary proteus. Blood cultures preliminary proteus/enterococcus; repeat pending. Continues on Unasyn. CT abdomen pelvis on admit showed mild right and mild to moderate left hydronephrosis without obstructing stone, possibly related to cath obstruction/retention. On exam today, the patient reported feelings of needing to void/urgency. He appeared to have minimal drainage from the catheter at this time. Due to his symptoms, I hand irrigated the catheter. The catheter flushed without difficulty. There were no clots or sediment/debris. Upon completion, the catheter did immediately drain approximately 300 mL of clear yellow urine. Patient reported relief in symptoms. Patient tolerated the procedure well. Continue antibiotic therapy and tailor per culture sensitivities. Continue to trend labs. Maintain Hanna catheter, okay to hand irrigate as needed for clots/obstruction. Continue management per primary team. Urology will follow, please call with any questions/concerns Plan/case reviewed with Dr. Leong. Admission and Anticipated Discharge Date Admission Date: July 03, 2025 Subjective Patient seen at bedside this morning. He is awake and resting in bed on arrival. No acute distress. Hard of hearing. Denies any pain at present. Hanna draining clear yellow urine. He does report some feelings of urinary urgency. Review of Systems Constitutional: as per Subjective / HPI Genitourinary: + as per Subjective / HPI Physical Exam Constitutional: no acute distress ENMT: Ears: + hearing impairment Respiratory: no respiratory distress and no labored breathing Neurologic: awake Psychiatric: Orientation: alert, oriented to person and cooperative Genitourinary: Hanna draining clear yellow urine Results & Data Vital Signs (Past 12 Hours) Vital Signs Temp Pulse Resp BP Pulse Ox Pulse Ox O2 Del Method 07/06/25 12:00 96 07/06/25 11:22 36.3 C L 71 18 135/79 98 Nasal Cannula 07/06/25 08:30 Nasal Cannula 07/06/25 07:11 36.8 C 71 18 134/73 97 Nasal Cannula 07/06/25 03:42 36.5 C 128 H 18 109/69 96 Nasal Cannula O2 Del Method O2 Flow Rate O2 Flow Rate 07/06/25 12:00 Nasal Cannula 1 07/06/25 11:22 1 07/06/25 08:30 1 07/06/25 07:11 1 07/06/25 03:42 1.0 PG Care Time/CCT Total # of Minutes Spent Total Time Spent with Patient: Total time spent is greater than 50% in coordination of care (as documented) at patient's floor/unit and/or counseling patient: Coding Level of Care Code 80646 SUB INP/OBS CARE 2/35MIN Diagnoses Bacteremia R78.81 Urinary tract infection associated with indwelling urethral catheter, subsequent encounter T83.511D; N39.0 Encounter type: subsequent encounter Indwelling urinary catheter type: indwelling urethral catheter Chronic retention of urine R33.9 BPH w urinary obs/LUTS N40.1; N13.8 Acute kidney injury superimposed on CKD N17.9; N18.9 (2) UTI (urinary tract infection) due to urinary indwelling catheter Encounter type: subsequent encounter Indwelling urinary catheter type: indwelling urethral catheter Qualified Code(s): T83.511D - Infection and inflammatory reaction due to indwelling urethral catheter, subsequent encounter; N39.0 - Urinary tract infection, site not specified
[2025-07-06] MEDS: METOPROLOL SUCC 25MG EXT REL TAB PO SCH (15:28)
--- NOTE | 2025-07-06 15:44 | Fluoroscopy Report ---
MODIFIED BARIUM SWALLOW CLINICAL HISTORY: Assess for aspiration COMPARISON STUDY: None FLUOROSCOPY TIME: 1.3 minutes. Ka,r: 11.7 mGy TECHNIQUE: A modified barium swallow was performed in conjunction with Speech Pathology. The patient ingested varying consistencies of barium containing material. Video fluoroscopy was performed. FINDINGS: When swallowing thin liquid barium via a teaspoon there was no aspiration. There was premature leaka ge. When performing sequential swallows of thin liquid barium via cup there was silent aspiration. When swallowing nectar thick liquid via teaspoon there was no aspiration. [place] thick liquid via cup there was no aspiration. When swallowing pudding via teaspoon there is no aspiration. Attempted swallow a cracker coated with pudding, the patient was unable to chew the cracker finding w hich may be secondary to patient's edematous state. The patient did swallow a pudding. There is no as piration. There is mild disordered esophageal motility IMPRESSION: 1. Silent aspiration when performing sequential swallows of thin liquids via cup. ACT 112: Negative or not required by law. Electronically signed by: Ruben Strange M.D. 07/06/2025 3:42 PM
--- NOTE | 2025-07-06 16:58 | Cardiology Progress Note ---
Date of Service July 06, 2025 Assessment & Plan (1) Atrial fibrillation with rapid ventricular response: (2) Septic shock: (3) Bacteremia: (4) Hypotension: (5) Aortic stenosis: (6) Acute kidney injury superimposed on CKD: Plan 79-year-old male developed paroxysmal atrial fibrillation with rapid ventricular response 07/05/2025. Likely consequence of underlying sepsis and beta-arnel withdrawal. IV amiodarone initiated yesterday with subsequent conversion to sinus rhythm this morning. Blood pressure improving. Outpatient Eliquis held on admission due to hematuria. Hemoglobin trending upward today. No obvious source of ongoing bleeding. Continue to monitor H&H. Transfuse to maintain hemoglobin greater than 7.0. Restart metoprolol 25 mg twice daily (outpatient dose 50 mg twice daily. Agree with resumption of reduced dose apixaban. Continue telemetry monitoring. Continue IV amiodarone. Carlos Oreilly DO, [facility] Admission and Anticipated Discharge Date Admission Date: July 03, 2025 Subjective 79-year-old patient seen and examined the bedside. Hard of hearing. Poor historian. Converted to sinus rhythm this morning. Tolerating IV amiodarone. Blood pressure improving. Review of Systems Review of Systems: Unobtainable due to cognitive status Physical Exam Constitutional: + ill appearing; no acute distress Respiratory: no retractions and does not use accessory muscles Auscultation: no crackles, no rales, no rhonchi and no wheezes Cardiovascular: Rate/Rhythm: regular rate and regular rhythm Heart Sounds: normal S1, normal S2 and + murmur (3/6 late peaking systolic ejection murmur) Vessels: radial pulses present; no JVD Extremities: no edema Gastrointestinal (Abdomen): Inspection/Auscultation: abdomen normal to inspection; abdomen not distended Percussion/Palpation: abdomen soft; abdomen nontender, no guarding and abdomen not rigid Neurologic: CN's II-XI intact bilaterally and moves all extremities Results & Data Vital Signs (Past 12 Hours) Vital Signs Temp Pulse Resp BP Pulse Ox Pulse Ox O2 Del Method 07/06/25 15:49 36.3 C L 68 18 128/74 96 Nasal Cannula 07/06/25 14:16 36.5 C 56 L 18 158/61 H 95 Room Air 07/06/25 12:00 96 07/06/25 11:22 36.3 C L 71 18 135/79 98 Nasal Cannula 07/06/25 08:30 Nasal Cannula 07/06/25 07:11 36.8 C 71 18 134/73 97 Nasal Cannula O2 Del Method O2 Flow Rate O2 Flow Rate 07/06/25 15:49 1 07/06/25 14:16 07/06/25 12:00 Nasal Cannula 1 07/06/25 11:22 1 07/06/25 08:30 1 07/06/25 07:11 1 Laboratory Results Cardiac Enzymes 07/06/25 Range/Units 05:29 AST 27 (13-39) U/L CBC 07/06/25 Range/Units 05:29 WBC 17.37 H (4.8-10.8) K/ul RBC 2.86 L (4.70-6.10) M/uL Hgb 8.2 L (14.0-18.0) g/dl Hct 25.7 L (42.0-52.0) % Plt Count 138 (130-400) K/uL Comprehensive Metabolic Panel 07/06/25 Range/Units 05:29 Sodium 146 H (136-145) mmol/L Potassium 4.0 (3.5-5.1) mmol/L Chloride 109 H (98-107) mmol/L Carbon Dioxide 28 (21-32) mmol/L BUN 64 H (6-23) mg/dl Creatinine 4.02 H (0.6-1.4) mg/dl Glucose 160 H (70-99(Fasting)) mg/dl Calcium 8.7 (8.6-10.3) mg/dl AST 27 (13-39) U/L ALT 15 (7-52) U/L Alkaline Phosphatase 63 (34-104) U/L Total Protein 6.0 (6.0-8.3) gm/dl Albumin 2.8 L (3.4-5.0) gm/dl Intake and Output 07/06/25 07/06/25 07/06/25 06:59 14:59 22:59 Intake Total 197.338 / 2047.998 1066 / 1066 Output Total 200 / 920 700 / 1040 340 / 1040 Balance -2.662 / 1127.998 366 / 26 -340 / 26 Intake: IV 197.338 / 2047.998 1066 / 1066 Amiodarone / D5w 360 mg In 200 197.338 / 197.338 ml @ 0.5 MG/MIN 16.667 mls/hr IV .Q12H [facility]IN Rx#:[id number] Ampicillin/Sulbactam Sod 3,000 100 / 100 mg In 100 ml @ 200 mls/hr IV Q24H [facility]IN Rx#:[id number] D5w and Lactated Ringers 1,000 966 / 966 ml @ 40 mls/hr IV .Q24H [facility]IN Rx# :[id number] Output: Urine Amount (Catheter) 200 / 920 700 / 1040 340 / 1040 Coude 200 / 920 700 / 1040 340 / 1040 Other: Other Intake Source NPO Weight 86 kg 86 kg Weight Measurement Method Built in [facility] Patient Weight 07/07/25 06:59 Weight 86 kg PG Care Time/CCT Total # of Minutes Spent Total Time Spent with Patient: Total time spent is greater than 50% in coordination of care (as documented) at patient's floor/unit and/or counseling patient: Coding Level of Care Code 24196 SUB INP/OBS CARE 3/50MIN Diagnoses Atrial fibrillation with rapid ventricular response I48.91 Septic shock A41.9; R65.21 Bacteremia R78.81 Hypotension I95.9 Aortic valve stenosis, etiology of cardiac valve disease unspecified I35.0 Cardiac valve disease etiology: etiology unspecified Acute kidney injury superimposed on CKD N17.9; N18.9 (5) Aortic stenosis Cardiac valve disease etiology: etiology unspecified Qualified Code(s): I35.0 - Nonrheumatic aortic (valve) stenosis
--- NOTE | 2025-07-06 17:17 | Nephrology Progress Note ---
Date of Service July 06, 2025 Assessment & Plan (1) Acute kidney injury superimposed on CKD: Plan: Plateaued stage 1 nonoliguric CESAR on rapidly progressive and advanced CKD in pt w/ chronic yee, new hydronephrosis. creatinine 4.2 on presentation; remains plateaud at 4 today; most recent creatinine baseline about 3-3.3 since mid May Extended discussion with patient and his about what dialysis is and how it is done and alternative to dialysis such as hospice: If need arises patient wishes to do dialysis; is present for this discussion and supports her 's decision -? if hydro relates to blocked/dislodged yee; no emergent urologic procedures planned -no indication for emergent dialysis though do need to review goals of care >mild hypernatremia and mild hyperchloremia emerging and will modify IV fluids to half-normal saline at very slow rate 50 mL hourly; low threshold to stop these if respiratory status worsens -daily bmp -cont nephrotoxin avoidance (2) Bacteremia: Plan: has P mirabilis in urine; has 2 Proteus species plus enterococcus in blood; f/u cxs pending and NGTD at 24 hr recurrent bacteremia (had proteus bacteremia April as well) consider inf dzs consult (3) UTI (urinary tract infection) due to urinary indwelling catheter: Plan: recurrent proteus pyelopnephritis and another blood culture with E faecalis had a dose of meropenem at 0300; had a dose of zosyn currently on unasyn which covers both (sensis 91%) and adjusted for renal function (4) Septic shock: Plan: from bacteremia +/- aspiration off pressors now Admission and Anticipated Discharge Date Admission Date: July 03, 2025 Subjective Seen on late afternoon rounds with at bedside. Extended conversation about goals of care. Denies shortness of breath nausea worsening edema sinus congestion Review of Systems 2 Review of Systems: All systems reviewed & are unremarkable except as noted in Subjective Physical Exam 2 Constitutional: well developed, well nourished and + frail appearing; no acute distress Eyes: EOM intact bilaterally ENMT: Ears: + hearing impairment Mouth: + dry oral mucous membranes Respiratory: + prolonged expiratory phase Ausculta tion: + diminished lung sounds, + rales, + wheezes and + abnormal I/E ratio Cardiovascular: Rate/Rhythm: regular rate and regular rhythm Extremities: + edema (1+) Gastrointestinal (Abdomen): Inspection/Auscultation: normal bowel sounds P ercussion/Palpation: abdomen soft; abdomen nontender Musculoskeletal: Extremities: 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) Skin: no rashes, warm and dry Results & Data Vital Signs (Past 12 Hours) Vital Signs Temp Pulse Resp BP Pulse Ox Pulse Ox O2 Del Method 07/06/25 15:49 36.3 C L 68 18 128/74 96 Nasal Cannula 07/06/25 14:16 36.5 C 56 L 18 158/61 H 95 Room Air 07/06/25 12:00 96 07/06/25 11:22 36.3 C L 71 18 135/79 98 Nasal Cannula 07/06/25 08:30 Nasal Cannula 07/06/25 07:11 36.8 C 71 18 134/73 97 Nasal Cannula O2 Del Method O2 Flow Rate O2 Flow Rate 07/06/25 15:49 1 07/06/25 14:16 07/06/25 12:00 Nasal Cannula 1 07/06/25 11:22 1 07/06/25 08:30 1 07/06/25 07:11 1 Laboratory Results 07/06/25 05:29 07/06/25 05:29 (3) UTI (urinary tract infection) due to urinary indwelling catheter Encounter type: subsequent encounter Indwelling urinary catheter type: i ndwelling urethral catheter Qualified Code(s): T83.511D - Infection and inflammatory reaction due to indwelling urethral catheter, subsequent encounter; N39.0 - Urinary tract infection, site not specified
[2025-07-06] MEDS: SODIUM CHLORIDE 0.45 % 1,000 ML IV SCH (18:14)
[2025-07-06] MEDS: APIXABAN 2.5 MG TAB PO SCH (21:12)
[2025-07-07 06:50] LABS: Hematocrit (blood only) 26.2 % (42.0-52.0); Hemoglobin 8.2 g/dl (14.0-18.0); Immature Granulocytes # (auto) 0.04 K/uL (0.01-0.20); Immature Granulocytes % (auto) 0.3 %; Mean Corpuscular Hemoglobin 28.2 pg (25.0-34.0); Mean Corpuscular Volume 90.0 fL (80.0-100.0); Platelet Count 138 K/uL (130-400); RDW Standard Deviation 45.1 fL (36.4-46.3); Red Blood Count 2.91 M/uL (4.70-6.10); White Blood Count 13.14 K/ul (4.8-10.8)
[2025-07-07 07:07] LABS: Alanine Aminotransferase 16.0 U/L (7-52); Albumin Globulin Ratio 0.9 (0.9-2); Alkaline Phosphatase 70.0 U/L (34-104); Anion Gap 8.0 (3-11); Bilirubin,Total 0.5 mg/dl (0.2-1.0); Blood Urea Nitrogen 54.0 mg/dl (6-23); Calcium 8.6 mg/dl (8.6-10.3); Carbon Dioxide 28.0 mmol/L (21-32); Chloride 106.0 mmol/L (98-107); Creatinine Clr Calc Pharmacy 15.7 ml/min; Globulin 3.3 gm/dl (2.5-4.0); Glucose 108.0 mg/dl (70-99(Fasting)); Potassium 3.6 mmol/L (3.5-5.1); Sodium 142.0 mmol/L (136-145); Total Protein 6.2 gm/dl (6.0-8.3)
--- NOTE | 2025-07-07 08:01 | XRay Report ---
EXAM: XR chest 1V portable CLINICAL HISTORY: Acute Hypoxemic Respiratory Failure. TECHNIQUE: An X-ray image of the chest is obtained in AP projection. COMPARISON: 07/06/2025. FINDINGS: Pulmonary Parenchyma: Interval stable, haziness seen in the left lower zone. Interval increase in haziness seen in the right lower zone. Few bilateral small atelectatic bands seen traversing the both lower zones. No evidence of pleural effusion or pleural thickening. Heart and Mediastinum: Heart size and shape are normal. No mediastinal widening or masses. No hilar or mediastinal lymphadenopathy. Bony Thorax: Bony thorax appears intact without fractures or deformities. Degenerative changes seen involving the thoracic spine and reduced glenohumeral joint spaces. Soft Tissues: Soft tissues overlying the chest wall are unremarkable. IMPRESSION: 1. Interval increase in haziness seen in the right lower zone. could be due to infectious process or pulmonary edema, clinical correlation needed 2. Interval stable, haziness seen in the left lower zone. Electronically signed by Zafar Giang 07-07-2025 08:00 AM
--- NOTE | 2025-07-07 08:10 | Hospitalist Progress Note ---
Date of Service July 07, 2025 Assessment & Plan (1) Acute respiratory failure with hypoxia: (2) Acute kidney injury superimposed on CKD: (3) Paroxysmal atrial fibrillation: (4) Diabetes mellitus, type II: (5) Severe aortic stenosis: (6) Chronic indwelling Yee catheter: (7) Hypotension: (8) Sepsis: (9) Bacteremia: Plan Pt is a 79 yo male with a past medical hx of severe aortic stenosis, HFpEF EF 55%, afib on chronic eliquis, DM on insulin, chronic indwelling yee due to chronic obstruction due to BPH, RLE BKA who presents from [facility] today for accidental yee removal with sudden acute respiratory failure in the ED with progressive hypotension refractory to IVF boluses requiring pressor support and ICU level of care. #AHRF/Sepsis/Bacteremia - Unclear etiology as initially in the ED pt was on small amount of NC oxygen but aspiration certainly possible especially given quick progression - CXR from before and after event seem similar - bedside US done by ED provider and seems to be volume depleted - blood cultures drawn; growing Enterococcus and Proteus Mirabilis, most recent Bcx negative for 24 hours - lactate very elevated on admission 8 -> 7 -> 5.6 -> 5.9 s/p 1.5 L of fluid on admission, improved further with pressor support and some more IV fluid hydration - initially empirically broad coverage zosyn + vanc (cefepime dose in the ED), changed to meropenem+dapto and then to ampicillin, MRSA nares negative - improved, oxygen titrated down to 1L and now patient is on RA and breathing much more comfortably - Continue Ampicillin coverage for 14 days for Enterococcus bacteremia, Bcx from 07/05 remains negative at 48 hours so 14 day abx course likely will continue from 07/05-07/19 unless Bcx show new growth. Can consider Augmentin therapy after 7-10 days of Ampicillin coverage after discussion with pharmacy/ID - CBC/BMP QAM #Hypotension - progressive throughout time in the ED, BPs initially permissible but progressed to 60-70/30-40s - pt does notably have severe aortic stenosis so was trialed on IV fluid boluses [id number] on admission with no meaningful improvement in blood pressures and thus transitioned to pressor support - suspect secondary to sepsis, possible urinary source - discontinued off pressors the morning of 07/05 - Improved, continue to monitor #Afib - pt went into RVR rates in the 150s the morning of 07/05 with pressures as low as 60/30s - somewhat expected given illness and he has been off his home metoprolol due to concerns of being able to safely po - seen by cardio, given lopressor dose by ICU, IVF bolus, and then started on amio drip by cards with rate improvement - Start Eliquis 2.5mg BID 07/06, Hgb has stabilized at 8.2. Restart metoprolol 25mg BID, continue PO amio 200mg per cards - QAM CBC #Dysphagia - Speech therapy consulted - Speech bedside evaluation failed with concerns for aspiration, and Flouro video swallow study revealed moderate oral dysphagia - Current recommendations: Remove NPO, Minced and moist diet, thin liquids, lidded cups, no straws #Aortic stenosis, severe #HFpEF - noted on echo in April 2025 - stat echo done on day of admission; EF 50-55% with grade I diastolic dysfunction, mod-severe aortic stenosis - cardiology consulted, recs appreciated #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 - baseline appears to be around Cr 3.0 the last few months - on admission Cr is 4.35 which has improved some - IVF given cautiously in the setting of severe , pressor support to maintain adequate MAP for some time - nephrology consulted, recs appreciated #Yee catheter, chronic #Hydronephrosis - pt initially here for replacement of yee, follows with urology outpatient and just had appt 2 weeks ago - yee was able to be replaced by ED staff with drainage of large amount of blood tinged urine and some clots - CT abd/pelvis did show mild to moderate hydronephrosis - urology consulted #Anemia, chronic - hemoglobin appears to be around 8.0-9.0 the last few months - no obvious source of bleeding aside from small amount of blood in the urine at time of admission - initially 12.9 -> 10.2 on day of admission pre and post fluids, suspect this drop on admission is from volume contraction more than acute blood loss - Currently 8.2 - will transfuse if hemoglobin <7 or symptomatic #DMT2- will do SSI only to start Chronic problems: GERD - 40mg Protonix QAM, typically takes 40mg BID, will start daily HLD - Atorvastatin 40mg QAM BPH: Finasteride PT/OT ordered VTE: heparin, holding home eliquis in the setting of CESAR Diet: will do speech eval prior to starting a diet Dispo: came from facility, ultimate goal would be to get him back to facility Admission and Anticipated Discharge Date Admission Date: July 03, 2025 Supervising Physician Co-Signing Physician Notes I personally examined the patient and verified diaz points of history and exam, discussed case, and agree with decision making and plan documented by Dr. Cyr. Hemoglobin stable on apixaban. CESAR improving. Continuing Unasyn at present. Patient currently in NSR on p.o. amiodarone. COLD PRESS LOADER evaluated with consistency recommendations. Patient has been at [facility] when ready for discharge. Subjective Selvin Sebastian is seen eating breakfast comfortably this AM. Patient is Ax03 and denies chest pain, palpitations, cough, wheeze, and abdominal pain. Patient does endorse some bladder pressure and ongoing SOB but is currently satting 97 on 1L O2 via NC. Patient reports that his birthday is in a month and that he would like a t-bone steak. Patient is afebrile and hemodynamically stable. Physical Exam Physical Exam: General: patient resting comfortably, NAD, non-toxic in appearance, answers questions appropriately. Skin: warm, dry, intact HEENT: NC/AT, anicteric sclera, conjunctiva without injection, moist mucus membranes. Heart: +S1/S2, regular, crescendo/decrescendo systolic murmur auscultated best at second intercostal space Lungs: equal air entry bilaterally, no rales/rhonchi/wheezes Abd: +BS, soft, NT/ND Ext: warm, no clubbing/cyanosis or edema Neuro: nonfocal, speech intact, no facial droop, moving all extremities. Results & Data Results & Data Vital Signs (Past 12 Hours) Vital Signs Temp Pulse Pulse Resp BP Pulse Ox O2 Del Method 07/07/25 03:31 36.9 C 66 18 155/76 H 97 Nasal Cannula 07/06/25 23:14 36.8 C 65 16 118/69 99 Nasal Cannula 07/06/25 21:48 64 O2 Flow Rate 07/07/25 03:31 07/06/25 23:14 1 07/06/25 21:48 Resident Activity Tracking Resident Involvement: Resident Care Provided Care Provided: Adult Hospital Medicine (4) Diabetes mellitus, type II Diabetes mellitus complication detail: with foot ulcer Diabetes mellitus complication status: with skin complications Diabetes mellitus senior living insulin use: with manager long term care use Qualified Code(s): E11.621 - Type 2 diabetes mellitus with foot ulcer; L97.509 - Non-pressure chronic ulcer of other part of unspecified foot with unspecified severity; Z79.4 - [facility]FP (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
[2025-07-07] MEDS: ATORVASTATIN 40 MG TAB PO SCH (10:21)
[2025-07-07] MEDS: FINASTERIDE 5 MG TAB PO SCH (10:21)
--- NOTE | 2025-07-07 12:22 | Cardiology Progress Note ---
Date of Service July 07, 2025 Assessment & Plan (1) Paroxysmal atrial fibrillation: (2) Aortic stenosis: (3) Bacteremia: (4) Acute kidney injury superimposed on CKD: Plan 79-year-old male developed paroxysmal atrial fibrillation with rapid ventricular response 07/05/2025. Likely consequence of underlying sepsis and beta-arnel withdrawal. IV amiodarone initiated 07/05/25. Oral beta-arnel and Eliquis restarted. Patient remains in sinus rhythm overnight. Discontinue IV amiodarone. Transition to oral amiodarone 200 mg daily. No obvious source of ongoing bleeding. Continue to monitor H&H. Transfuse to maintain hemoglobin greater than 7.0. Continue telemetry monitoring. Currently patient is not a candidate for valvular intervention due to recurrent infections and decubitus ulcer. Outpatient cardiology follow-up. No further inpatient cardiac testing recommended at this time. Cardiology will sign off. Please call with additional concerns/questions. Carlos Oreilly DO, [facility] Admission and Anticipated Discharge Date Admission Date: July 03, 2025 Subjective 79-year-old male seen examined at bedside. Evaluated with wound nurse at bedside. Sacral decubitus ulcer noted. Patient denies chest pain or shortness of breath. Jorge in sinus rhythm on telemetry. Blood pressure improved. No recurrent atrial fibrillation. Review of Systems Review of Systems: All systems reviewed & are unremarkable except as noted in Subjective Physical Exam Constitutional: + ill appearing; no acute distress Respiratory: no retractions and does not use accessory muscles Auscultation: no crackles, no rales, no rhonchi and no wheezes Cardiovascular: Rate/Rhythm: regular rate and regular rhythm Heart Sounds: normal S1, normal S2 and + murmur (3/6 late peaking systolic ejection murmur) Vessels: radial pulses present; no JVD Extremities: no edema Gastrointestinal (Abdomen): Inspection/Auscultation: abdomen normal to inspection; abdomen not distended Percussion/Palpation: abdomen soft; abdomen nontender, no guarding and abdomen not rigid Skin: Sacral decubitus ulcer Neurologic: CN's II-XI intact bilaterally and moves all extremities Results & Data Vital Signs (Past 12 Hours) Vital Signs Temp Pulse Pulse Resp BP Pulse Ox O2 Del Method 07/07/25 11:56 36.8 C 87 20 150/85 H 97 Nasal Cannula 07/07/25 11:14 59 L 07/07/25 08:00 Nasal Cannula 07/07/25 03:31 36.9 C 66 18 155/76 H 97 Nasal Cannula O2 Flow Rate 07/07/25 11:56 07/07/25 11:14 07/07/25 08:00 1 07/07/25 03:31 Laboratory Results Cardiac Enzymes 07/07/25 Range/Units 06:07 AST 23 (13-39) U/L CBC 07/07/25 Range/Units 06:07 WBC 13.14 H (4.8-10.8) K/ul RBC 2.91 L (4.70-6.10) M/uL Hgb 8.2 L (14.0-18.0) g/dl Hct 26.2 L (42.0-52.0) % Plt Count 138 (130-400) K/uL Neut # (Auto) 10.15 H (1.40-6.50) K/uL Lymph # (Auto) 1.63 (1.20-3.40) K/uL [place] # (Auto) 0.74 H (0.11-0.59) K/uL Eos # (Auto) 0.52 H (0.00-0.50) K/uL Baso # (Auto) 0.06 (0.00-0.20) K/uL Comprehensive Metabolic Panel 07/07/25 Range/Units 06:07 Sodium 142 (136-145) mmol/L Potassium 3.6 (3.5-5.1) mmol/L Chloride 106 (98-107) mmol/L Carbon Dioxide 28 (21-32) mmol/L BUN 54 H (6-23) mg/dl Creatinine 3.73 H (0.6-1.4) mg/dl Glucose 108 H (70-99(Fasting)) mg/dl Calcium 8.6 (8.6-10.3) mg/dl AST 23 (13-39) U/L ALT 16 (7-52) U/L Alkaline Phosphatase 70 (34-104) U/L Total Protein 6.2 (6.0-8.3) gm/dl Albumin 2.9 L (3.4-5.0) gm/dl Intake and Output 07/06/25 07/07/25 07/07/25 22:59 06:59 14:59 Intake Total 536.667 / 1877.667 275 / 1877.667 100 / 100 Output Total 340 / 1790 750 / 1790 980 / 980 Balance 196.667 / 87.667 -475 / 87.667 -880 / -880 Intake: IV 526.667 / 1792.667 200 / 1792.667 100 / 100 Amiodarone / D5w 360 mg In 200 200 / 400 200 / 400 ml @ 0.5 MG/MIN 16.667 mls/hr IV .Q12H DARIN Rx#:[id number] Ampicillin/Sulbactam Sod 3,000 100 / 100 mg In 100 ml @ 200 mls/hr IV Q24H DARIN Rx#:[id number] D5w and Lactated Ringers 1,000 326.667 / 1292.667 ml @ 40 mls/hr IV .Q24H [facility]ARIN Rx# :[id number] Oral 75 / 85 Output: Urine Amount (Catheter) 340 / 1790 750 / 1790 980 / 980 Coude 340 / 1790 750 / 1790 980 / 980 Other: Weight 87.1 kg Weight Measurement Method Built in [facility] PG Care Time/CCT Total # of Minutes Spent Total Time Spent with Patient: Total time spent is greater than 50% in coordination of care (as documented) at patient's floor/unit and/or counseling patient: Coding Level of Care Code 40587 SUB INP/OBS CARE 3/50MIN Diagnoses Paroxysmal atrial fibrillation I48.0 Aortic valve stenosis, etiology of cardiac valve disease unspecified I35.0 Cardiac valve disease etiology: etiology unspecified Bacteremia R78.81 Acute kidney injury superimposed on CKD N17.9; N18.9 (2) Aortic stenosis Cardiac valve disease etiology: etiology unspecified Qualified Code(s): I35.0 - Nonrheumatic aortic (valve) stenosis
[2025-07-07] MEDS: AMIODARONE 200 MG TAB PO SCH (13:05)
--- NOTE | 2025-07-07 14:44 | Urology Progress Note ---
Date of Service July 07, 2025 Assessment & Plan (1) Bacteremia: (2) UTI (urinary tract infection) due to urinary indwelling catheter: (3) Chronic retention of urine: (4) BPH w urinary obs/LUTS: (5) Acute kidney injury superimposed on CKD: Plan 79yo male admitted with acute respiratory failure, sepsis/bacteremia, CESAR - Urology was consulted for Hanna replacement and hematuria. Patient afebrile and hemodynamically stable. Labs today-WBCs downtrending to 13.14, hemoglobin 8.2, creatinine 4.21- 4.02 - 3.73 today. Urine culture grew proteus. Blood cultures preliminary proteus/enterococcus; repeat prelim no growth x 48hours Continues on Unasyn. Hanna intact and draining clear yellow urine. CT abdomen pelvis on admit showed mild right and mild to moderate left hydronephrosis without obstructing stone, possibly related to cath obstruction/retention. Continue antibiotic therapy and tailor per culture sensitivities. Continue to trend labs. Maintain Hanna catheter, okay to hand irrigate as needed for clots/obstruction. Continue management per primary team. Will arrange outpatient follow-up with our service. Urology will sign off. Please call with any further questions, concerns, or changes in patient status. Admission and Anticipated Discharge Date Admission Date: July 03, 2025 Subjective Patient seen at bedside this morning. He is awake and resting in bed on arrival. No acute distress. Hard of hearing. Denies any pain at present. Hanna draining clear yellow urine. Review of Systems Constitutional: as per Subjective / HPI Genitourinary: + as per Subjective / HPI Physical Exam Constitutional: no acute distress ENMT: Ears: + hearing impairment Respiratory: no respiratory distress and no labored breathing Neurologic: awake Psychiatric: Orientation: alert, oriented to person and cooperative Genitourinary: Hanna draining clear yellow urine Results & Data Vital Signs (Past 12 Hours) Vital Signs Temp Pulse Pulse Resp BP Pulse Ox O2 Del Method 07/07/25 11:56 36.8 C 87 20 150/85 H 97 Nasal Cannula 07/07/25 11:14 59 L 07/07/25 08:00 Nasal Cannula 07/07/25 03:31 36.9 C 66 18 155/76 H 97 Nasal Cannula O2 Flow Rate 07/07/25 11:56 07/07/25 11:14 07/07/25 08:00 1 07/07/25 03:31 PG Care Time/CCT Total # of Minutes Spent Total Time Spent with Patient: Total time spent is greater than 50% in coordination of care (as documented) at patient's floor/unit and/or counseling patient: Coding Level of Care Code 94808 SUB INP/OBS CARE 2/35MIN Diagnoses Bacteremia R78.81 Urinary tract infection associated with indwelling urethral catheter, subsequent encounter T83.511D; N39.0 Indwelling urinary catheter type: indwelling urethral catheter Encounter type: subsequent encounter Chronic retention of urine R33.9 BPH w urinary obs/LUTS N40.1; N13.8 Acute kidney injury superimposed on CKD N17.9; N18.9 (2) UTI (urinary tract infection) due to urinary indwelling catheter Indwelling urinary catheter type: indwelling urethral catheter Encounter type: subsequent encounter Qualified Code(s): T83.511D - Infection and inflammatory reaction due to indwelling urethral catheter, subsequent encounter; N39.0 - Urinary tract infection, site not specified
--- NOTE | 2025-07-07 17:07 | Nephrology Progress Note ---
Date of Service July 07, 2025 Assessment & Plan (1) Acute kidney injury superimposed on CKD: Plan: somewhat improved stage 1 nonoliguric CESAR on rapidly progressive and advanced CKD in pt w/ chronic yee, new hydronephrosis. creatinine 4.2 on presentation; improved to 3.7 today; most recent creatinine baseline about 3-3.3 since mid May Extended discussion with patient and his on 07/06 about what dialysis is and how it is done and alternative to dialysis such as hospice: If need arises patient wishes to do dialysis; is present for this discussion and supports her 's decision -? if hydro relates to blocked/dislodged yee; no emergent urologic procedures planned -no indication for emergent dialysis >mild hypernatremia and mild hyperchloremia improved with modified IV fluids. However chest x-ray today notable for increasing volume overload and will stop IV fluids and give 20 mg IV Lasix x 1 along w/ K -daily bmp -cont nephrotoxin avoidance Care reviewed via [place] text with Dr Moore regarding change to IV fluids and one-time Lasix dose along with potassium. We are in agreement. (2) Bacteremia: Plan: has P mirabilis in urine; has 2 Proteus species plus enterococcus in blood; f/u cxs pending and NGTD at 48 hr recurrent bacteremia (had proteus bacteremia April as well) consider inf dzs consult (3) UTI (urinary tract infection) due to urinary indwelling catheter: Plan: recurrent proteus pyelopnephritis and another blood culture with E faecalis had a dose of meropenem at 0300; had a dose of zosyn currently on unasyn which covers both (sensis 91%) and adjusted for renal function (4) Septic shock: Plan: from bacteremia +/- aspiration off pressors now Admission and Anticipated Discharge Date Admission Date: July 03, 2025 Subjective seen on late afternoon rounds. No acute interval clinical events. Denies shortness of breath. Denies uncontrolled pain. Review of Systems 2 Review of Systems: All systems reviewed & are unremarkable except as noted in Subjective Physical Exam 2 Constitutional: well developed, well nourished, + altered mental status (opens eyes; not interactive), + frail appearing and cooperative ( Makes a few jokes); no acute distress Eyes: EOM intact bilaterally ENMT: Ears: + hearing impairment Mouth: + dry oral mucous membranes Respiratory: normal respiratory effort and + prolonged expiratory phase A uscultation: + diminished lung sounds, + rales, + wheezes and + abnormal I/E ratio Cardiovascular: Rate/Rhythm: regular rate and regular rhythm Heart Sounds: + murmur Extremities: + edema (1+) Gastrointestinal (Abdomen): Inspection/Auscultation: normal bowel sounds P ercussion/Palpation: abdomen soft; abdomen nontender Musculoskeletal: Extremities: 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) Skin: no rashes, warm and dry Results & Data Vital Signs (Past 12 Hours) Vital Signs Temp Pulse Pulse Resp BP Pulse Ox O2 Del Method 07/07/25 15:46 36.7 C 64 22 158/85 H 100 Nasal Cannula 07/07/25 11:56 36.8 C 87 20 150/85 H 97 Nasal Cannula 07/07/25 11:14 59 L 07/07/25 08:00 Nasal Cannula O2 Flow Rate 07/07/25 15:46 07/07/25 11:56 07/07/25 11:14 07/07/25 08:00 1 Laboratory Results 07/07/25 06:07 07/07/25 06:07 (3) UTI (urinary tract infection) due to urinary indwelling catheter Encounter type: subsequent encounter Indwelling urinary catheter type: i ndwelling urethral catheter Qualified Code(s): T83.511D - Infection and inflammatory reaction due to indwelling urethral catheter, subsequent encounter; N39.0 - Urinary tract infection, site not specified
[2025-07-07] MEDS: FUROSEMIDE INJ 20 MG/2 ML VIAL IV ONE (17:42)
[2025-07-07] MEDS: AMPICILLIN/SULBACTAM SOD 3,000 MG/100 ML BAG IV SCH (19:30)
[2025-07-07] MEDS: POTASSIUM CHLORIDE 20 MEQ/15 ML UDC PO STA (19:30)
[2025-07-08 07:01] LABS: Hematocrit (blood only) 27.5 % (42.0-52.0); Hemoglobin 8.7 g/dl (14.0-18.0); Immature Granulocytes # (auto) 0.03 K/uL (0.01-0.20); Immature Granulocytes % (auto) 0.3 %; Mean Corpuscular Hemoglobin 28.0 pg (25.0-34.0); Mean Corpuscular Volume 88.4 fL (80.0-100.0); Platelet Count 145 K/uL (130-400); RDW Standard Deviation 44.3 fL (36.4-46.3); Red Blood Count 3.11 M/uL (4.70-6.10); White Blood Count 10.18 K/ul (4.8-10.8)
[2025-07-08 07:28] LABS: Alanine Aminotransferase 12.0 U/L (7-52); Albumin Globulin Ratio 0.8 (0.9-2); Alkaline Phosphatase 67.0 U/L (34-104); Anion Gap 8.0 (3-11); Bilirubin,Total 0.5 mg/dl (0.2-1.0); Blood Urea Nitrogen 46.0 mg/dl (6-23); Calcium 8.8 mg/dl (8.6-10.3); Carbon Dioxide 30.0 mmol/L (21-32); Chloride 106.0 mmol/L (98-107); Creatinine Clr Calc Pharmacy 17.2 ml/min; Globulin 3.7 gm/dl (2.5-4.0); Glucose 132.0 mg/dl (70-99(Fasting)); Potassium 3.8 mmol/L (3.5-5.1); Sodium 144.0 mmol/L (136-145); Total Protein 6.6 gm/dl (6.0-8.3)
--- NOTE | 2025-07-08 08:11 | Hospitalist Progress Note ---
Date of Service July 08, 2025 Assessment & Plan (1) Acute respiratory failure with hypoxia: (2) Acute kidney injury superimposed on CKD: (3) Paroxysmal atrial fibrillation: (4) Diabetes mellitus, type II: (5) Severe aortic stenosis: (6) Chronic indwelling Yee catheter: (7) Hypotension: (8) Sepsis: (9) Bacteremia: Plan Pt is a 79 yo male with a past medical hx of severe aortic stenosis, HFpEF EF 55%, afib on chronic eliquis, DM on insulin, chronic indwelling yee due to chronic obstruction due to BPH, RLE BKA who presents from [facility] today for accidental yee removal with sudden acute respiratory failure in the ED with progressive hypotension refractory to IVF boluses requiring pressor support and ICU level of care. #AHRF/Sepsis/Bacteremia - Unclear etiology as initially in the ED pt was on small amount of NC oxygen but aspiration certainly possible especially given quick progression - CXR from before and after event seem similar - bedside US done by ED provider and seems to be volume depleted - blood cultures drawn; growing Enterococcus and Proteus Mirabilis, most recent Bcx negative for 24 hours - lactate very elevated on admission 8 -> 7 -> 5.6 -> 5.9 s/p 1.5 L of fluid on admission, improved further with pressor support and some more IV fluid hydration - initially empirically broad coverage zosyn + vanc (cefepime dose in the ED), changed to meropenem+dapto and then to ampicillin, MRSA nares negative - improved, oxygen titrated down to 1L and now patient is on RA and breathing much more comfortably - Continue Ampicillin coverage for 14 days for Enterococcus bacteremia, Bcx from 07/05 remains negative at 48 hours so 14 day abx course likely will continue from 07/05-07/19 unless Bcx show new growth. Can consider Augmentin step down therapy upon d/c back to [facility]. Continue Ampicillin coverage 3g Q12H while inpatient. - CBC/BMP QAM #Hypotension - progressive throughout time in the ED, BPs initially permissible but progressed to 60-70/30-40s - pt does notably have severe aortic stenosis so was trialed on IV fluid boluses [id number] on admission with no meaningful improvement in blood pressures and thus transitioned to pressor support - suspect secondary to sepsis, possible urinary source - discontinued off pressors the morning of 07/05 - Improved, continue to monitor #Afib - pt went into RVR rates in the 150s the morning of 07/05 with pressures as low as 60/30s - somewhat expected given illness and he has been off his home metoprolol due to concerns of being able to safely po - seen by cardio, given lopressor dose by ICU, IVF bolus, and then started on amio drip by cards with rate improvement - Restart Eliquis 2.5mg BID 07/06, Hgb has stabilized at 8.7. -K-g-g-t-a-r-t- -n-h-v-i-v-x-o-l-o-l- -2-5-m-g- -B-I-D-,- -i-x-m-t-i-n-u-e- -P-O- -a-m-i-o- -2-0-0-m-g- -p-e-r- -c-a-r-d-s- - Upon d/c to [facility] continue amiodarone 200mg, metoprolol home dosage of 50mg BID, and Eliquis 2.5mg BID - QAM CBC #Dysphagia - -W-d-r-e-c-h- -e-e-g-r-a-p-y- -w-m-f-e-w-u-t-e-d- - Speech bedside evaluation failed with concerns for aspiration, and Flouro vi justin swallow study revealed moderate oral dysphagia - Current recommendations: Remove NPO, Minced and moist diet, thin liquids, lidded cups, no straws #Aortic stenosis, severe #HFpEF - -n-o-t-e-d- -o-n- -e-c-h-o- -i-n- -J-u-n-e- -2-0-2-5- - -s-t-a-t- -e-c-h-o- -d-o-n-e- -o-n- -d-a-y- -o-f- -h-b-n-r-s-u-i-o-n-;- EF 50- 55% with grade I diastolic dysfunction, mod-severe aortic stenosis - cardiology consulted, recs appreciated #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 - baseline appears to be around Cr 3.0 the last few months - on admission Cr is 4.35 which has improved some - IVF given cautiously in the setting of severe , pressor support to maintain adequate MAP for some time - nephrology consulted, recs appreciated #Yee catheter, chronic #Hydronephrosis - pt initially here for replacement of yee, follows with urology outpatient and just had appt 2 weeks ago - yee was able to be replaced by ED staff with drainage of large amount of blood tinged urine and some clots - CT abd/pelvis did show mild to moderate hydronephrosis - urology consulted #Anemia, chronic - hemoglobin appears to be around 8.0-9.0 the last few months - no obvious source of bleeding aside from small amount of blood in the urine at time of admission - initially 12.9 -> 10.2 on day of admission pre and post fluids, suspect this drop on admission is from volume contraction more than acute blood loss - Currently -8-.-2- - will transfuse if hemoglobin <7 or symptomatic #DMT2- will do SSI only to start Chronic problems: GERD - 40mg Protonix QAM, typically takes 40mg BID, will start daily HLD - Atorvastatin 40mg QAM BPH: Finasteride PT/OT ordered VTE: -m-e-r-a-r-i-n-,- -h-x-l-d-i-n-g- -h-o-m-e- -h-c-r-q-u-i-s- -i-n- -t-h-e- -r-z-r-t-i-n-g- -o-f- -A-K-I- Diet: -w-i-l-l- -d-o- -r-z-m-e-c-h- -e-v-a-l- -p-r-i-o-r- -t-o- -v-j-w-r-t-i-n-g- -a- -d-i-e-t- Dispo: came from facility, ultimate goal would be to get him back to facility Admission and Anticipated Discharge Date Admission Date: July 03, 2025 Supervising Physician Co-Signing Physician Notes I personally examined the patient and verified diaz points of history and exam, discussed case, and agree with decision making and plan documented by Dr. Cyr. Short run of A-fib overnight. Increase metoprolol succinate to home dose of 50 mg twice daily. Hemoglobin stable at 8.7. Cr 3.39 today. Patient has bed at [facility]. Subjective Patient seen resting comfortably this AM. Patient remains afebrile and hemodynamically stable. Short time frame of a-fib overnight seen on telemetry, patient is currently on medical management and a-fib resolved now. Physical Exam Physical Exam: General: patient resting comfortably, NAD, non-toxic in appearance, answers questions appropriately. Skin: warm, dry, intact HEENT: NC/AT, anicteric sclera, conjunctiva without injection, moist mucus membranes. Greyish black hardened 1-2 cm keratinous projection of skin on R. cheek Heart: +S1/S2, regular, crescendo/decrescendo systolic murmur auscultated best at second intercostal space Lungs: equal air entry bilaterally, no rales/rhonchi/wheezes Abd: +BS, soft, NT/ND Ext: warm, no clubbing/cyanosis or edema Neuro: nonfocal, speech intact, no facial droop, moving all extremities. Results & Data Results & Data Vital Signs (Past 12 Hours) Vital Signs Temp Pulse Pulse Resp BP BP Pulse Ox 07/08/25 07:22 36.7 C 63 18 155/82 H 97 07/08/25 04:29 37.0 C 58 L 18 153/65 H 98 07/08/25 00:08 37.0 C 62 18 147/76 H 98 07/07/25 20:45 63 07/07/25 20:15 36.5 C 97 H 18 138/89 97 O2 Del Method O2 Flow Rate 07/08/25 07:22 Nasal Cannula 1 07/08/25 04:29 Nasal Cannula 1 07/08/25 00:08 Nasal Cannula 1 07/07/25 20:45 07/07/25 20:15 Room Air Resident Activity Tracking Resident Involvement: Resident Care Provided Care Provided: Adult Hospital Medicine (4) Diabetes mellitus, type II Diabetes mellitus complication detail: with foot ulcer Diabetes mellitus complication status: with skin complications Diabetes mellitus snf insulin use: with snf use Qualified Code(s): E11.621 - Type 2 diabetes mellitus with foot ulcer; L97.509 - Non-pressure chronic ulcer of other part of unspecified foot with unspecified severity; Z79.4 - [facility] (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
--- NOTE | 2025-07-08 15:21 | Nephrology Progress Note ---
Date of Service July 08, 2025 Assessment & Plan (1) Acute kidney injury superimposed on CKD: Plan: somewhat improved stage 1 nonoliguric CESAR on rapidly progressive and advanced CKD in pt w/ chronic yee, new hydronephrosis. creatinine 4.2 on presentation; improved to 3.4 today; most recent creatinine baseline about 3-3.3 since mid May -daily bmp -cont nephrotoxin avoidance - Monitor and replete k as needed (2) Bacteremia: Plan: has P mirabilis in urine; has 2 Proteus species plus enterococcus in blood; f/u cxs pending and NGTD at 48 hr recurrent bacteremia (had proteus bacteremia April as well) Antibiotics renally dosed (3) UTI (urinary tract infection) due to urinary indwelling catheter: Plan: recurrent proteus pyelopnephritis and another blood culture with E faecalis had a dose of meropenem at 0300; had a dose of zosyn currently on unasyn which covers both (sensis 91%) and adjusted for renal function Admission and Anticipated Discharge Date Admission Date: July 03, 2025 Subjective Seen for 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. He is making more urine. Cr down trending. Has mild SOB. at bedside. Review of Systems 2 Review of Systems: All other systems were reviewed and negative except as noted in HPI Physical Exam 2 Physical Exam: General exam: Appears comfortable, no acute distress HEENT: Pupils are equal and reactive to light. Hard or hearing Neck: No JVD, neck is supple trachea is midline Respiratory system: Clear breath sounds bilaterally. Gastrointestinal: Abdomen is soft, non distended, non tender, bowel sounds are present CVS: Regular rate and rhythm. No murmurs, rubs or gallops Musculoskeletal: No joint or muscle tenderness Extremities: Non tender, no edema, peripheral pulses are present Neuro: Oriented, no tremors, no focal neurological deficits Skin: No rashes Results & Data Vital Signs (Past 12 Hours) Vital Signs Temp Pulse Resp BP BP Pulse Ox O2 Del Method 07/08/25 11:42 36.5 C 63 20 153/85 H 97 Nasal Cannula 07/08/25 07:22 36.7 C 63 18 155/82 H 97 Nasal Cannula 07/08/25 04:29 37.0 C 58 L 18 153/65 H 98 Nasal Cannula O2 Flow Rate 07/08/25 11:42 1 07/08/25 07:22 1 07/08/25 04:29 1 Laboratory Results 07/08/25 06:16 07/08/25 06:16 WBC 10.18 RBC 3.11 L MCV 88.4 MCH 28.0 MCHC 31.6 L RDW Std Deviation 44.3 RDW Coeff of Scott 13.7 Plt Count 145 MPV 11.3 Albumin 2.9 L (3) UTI (urinary tract infection) due to urinary indwelling catheter Indwelling urinary catheter type: indwelling urethral catheter Encounter type: subsequent encounter Qualified Code(s): T83.511D - Infection and inflammatory reaction due to indwelling urethral catheter, subsequent encounter; N39.0 - Urinary tract infection, site not specified
[2025-07-08] MEDS: METOPROLOL SUCC 50MG EXT REL TAB PO SCH (21:06)
[2025-07-09 08:23] LABS: Hematocrit (blood only) 27.8 % (42.0-52.0); Hemoglobin 8.9 g/dl (14.0-18.0); Immature Granulocytes # (auto) 0.06 K/uL (0.01-0.20); Immature Granulocytes % (auto) 0.7 %; Mean Corpuscular Hemoglobin 28.0 pg (25.0-34.0); Mean Corpuscular Volume 87.4 fL (80.0-100.0); Platelet Count 141 K/uL (130-400); RDW Standard Deviation 43.0 fL (36.4-46.3); Red Blood Count 3.18 M/uL (4.70-6.10); White Blood Count 8.85 K/ul (4.8-10.8)
[2025-07-09 08:37] LABS: Anion Gap 7.0 (3-11); Blood Urea Nitrogen 38.0 mg/dl (6-23); Calcium 8.5 mg/dl (8.6-10.3); Carbon Dioxide 31.0 mmol/L (21-32); Chloride 105.0 mmol/L (98-107); Creatinine Clr Calc Pharmacy 18.6 ml/min; Glucose 133.0 mg/dl (70-99(Fasting)); Potassium 3.5 mmol/L (3.5-5.1); Sodium 143.0 mmol/L (136-145)
--- NOTE | 2025-07-09 11:43 | Hospitalist Progress Note ---
Date of Service July 09, 2025 Assessment & Plan (1) Acute respiratory failure with hypoxia: (2) Acute kidney injury superimposed on CKD: (3) Paroxysmal atrial fibrillation: (4) Diabetes mellitus, type II: (5) Severe aortic stenosis: (6) Chronic indwelling Yee catheter: (7) Hypotension: (8) Sepsis: (9) Bacteremia: Plan Pt is a 79 yo male with a past medical hx of severe aortic stenosis, HFpEF EF 55%, afib on chronic eliquis, DM on insulin, chronic indwelling yee due to chronic obstruction due to BPH, RLE BKA who presents from [facility] today for accidental yee removal with sudden acute respiratory failure in the ED with progressive hypotension refractory to IVF boluses requiring pressor support and ICU level of care. #AHRF/Sepsis/Bacteremia - blood cultures drawn; growing Enterococcus and Proteus Mirabilis, most recent Bcx negative for 24 hours - lactate very elevated on admission 8, improved with fluid resuscitation and pressor support - initially empirically broad coverage zosyn + vanc (cefepime dose in the ED), changed to meropenem+dapto and now on ampicillin tx - AHRF resolved, Pt on 1L via NC - Continue Ampicillin coverage for gram negative bacteremia, Bcx from 07/05 remains negative at 48 hours so 14 day abx course likely will continue from 07/05- 07/19 unless Bcx show new growth. Can consider Augmentin step down therapy upon d/c back to [facility]. Continue Ampicillin coverage 3g Q12H while inpatient. - CBC/BMP QAM #Hypotension - progressive throughout time in the ED, BPs initially permissible but progressed to 60-70/30-40s - Resolved with IV fluid boluses and pressor support #Afib - pt went into RVR rates in the 150s the morning of 07/05 with pressures as low as 60/30s - somewhat expected given illness and he has been off his home metoprolol due to concerns of being able to safely po - seen by cardio, given lopressor dose by ICU, IVF bolus, and then started on amio drip by cards with rate improvement - Restart Eliquis 2.5mg BID 07/06, Hgb has stabilized at 8.7. Restart metoprolol 50mg BID, continue PO amio 200mg per cards - Upon d/c to [facility] continue amiodarone 200mg, metoprolol home dosage of 50mg BID, and Eliquis 2.5mg BID - QAM CBC #Dysphagia - Speech therapy consulted - Speech bedside evaluation failed with concerns for aspiration, and Flouro video swallow study revealed moderate oral dysphagia - Current recommendations: Minced and moist diet, thin liquids, lidded cups, no straws #Aortic stenosis, severe #HFpEF - noted on echo in April 2025 - stat echo done on day of admission; EF 50-55% with grade I diastolic dysfunction, mod-severe aortic stenosis - cardiology consulted: patient is not valve replacement candidate due to recurrent infections and renal dysfunction #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 - baseline appears to be around Cr 3.0 the last few months - on admission Cr is 4.35 which has improved some - IVF given cautiously in the setting of severe , pressor support to maintain adequate MAP for some time - nephrology consulted, recs appreciated #Yee catheter, chronic #Hydronephrosis - pt initially here for replacement of yee, follows with urology outpatient and just had appt 2 weeks ago - yee was able to be replaced by ED staff with drainage of large amount of blood tinged urine and some clots - CT abd/pelvis did show mild to moderate hydronephrosis - urology consulted #Anemia, chronic - hemoglobin appears to be around 8.0-9.0 the last few months - no obvious source of bleeding aside from small amount of blood in the urine at time of admission - initially 12.9 -> 10.2 on day of admission pre and post fluids, suspect this drop on admission is from volume contraction more than acute blood loss - Currently 8.2 - will transfuse if hemoglobin <7 or symptomatic #DMT2- will do SSI only to start Chronic problems: GERD - 40mg Protonix QAM, typically takes 40mg BID, will start daily HLD - Atorvastatin 40mg QAM BPH: Finasteride PT/OT ordered VTE: heparin, holding home eliquis in the setting of CESAR Diet: will do speech eval prior to starting a diet Dispo: came from facility, ultimate goal would be to get him back to facility Admission and Anticipated Discharge Date Admission Date: July 03, 2025 Supervising Physician Co-Signing Physician Notes I personally examined the patient and verified diaz points of history and exam, discussed case, and agree with decision making and plan documented by Dr. Cyr. Patient visiting with sister today and feeling much better. Hemoglobin stable at 8.9. Cr 2.88 today. Patient has bed at [facility]. Subjective Patient is seen resting comfortably this AM without acute concerns or complaints. Patient is seen alongside his sister. Patient remains afebrile and hemodynamically stable. Physical Exam Physical Exam: General: patient resting comfortably, NAD, non-toxic in appearance, answers questions appropriately. Skin: warm, dry, intact HEENT: NC/AT, anicteric sclera, conjunctiva without injection, moist mucus membranes. Greyish black hardened 1-2 cm keratinous projection of skin on R. cheek Heart: +S1/S2, regular, crescendo/decrescendo systolic murmur auscultated best at second intercostal space Lungs: equal air entry bilaterally, no rales/rhonchi/wheezes Abd: +BS, soft, NT/ND Ext: warm, no clubbing/cyanosis or edema Neuro: nonfocal, speech intact, no facial droop, moving all extremities. Results & Data Results & Data Vital Signs (Past 12 Hours) Vital Signs Temp Pulse Resp BP BP Pulse Ox O2 Del Method 07/09/25 11:19 36.2 C L 67 16 159/100 H 99 Nasal Cannula 07/09/25 07:50 36.3 C L 67 18 171/84 H 97 Nasal Cannula 07/09/25 03:59 36.4 C L 66 18 155/86 H 96 Nasal Cannula 07/08/25 23:55 36.4 C L 65 18 163/83 H 97 Nasal Cannula O2 Flow Rate 07/09/25 11:19 07/09/25 07:50 07/09/25 03:59 1 07/08/25 23:55 1 Resident Activity Tracking Resident Involvement: Resident Care Provided Care Provided: Adult Hospital Medicine (4) Diabetes mellitus, type II Diabetes mellitus complication detail: with foot ulcer Diabetes mellitus complication status: with skin complications Diabetes mellitus ad terminal makeup operator insulin use: with ad terminal makeup operator use Qualified Code(s): E11.621 - Type 2 diabetes mellitus with foot ulcer; L97.509 - Non-pressure chronic ulcer of other part of unspecified foot with unspecified severity; Z79.4 - 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
--- NOTE | 2025-07-09 13:16 | Nephrology Progress Note ---
Date of Service July 09, 2025 Assessment & Plan (1) Acute kidney injury superimposed on CKD: Plan: somewhat improved stage 1 nonoliguric CESAR on rapidly progressive and advanced CKD in pt w/ chronic yee, new hydronephrosis. creatinine 4.2 on presentation; improved to 2.9 today; most recent creatinine baseline about 3-3.3 since mid May -daily bmp -cont nephrotoxin avoidance - Monitor and replete k as needed (2) Bacteremia: Plan: has P mirabilis in urine; has 2 Proteus species plus enterococcus in blood; f/u cxs pending and NGTD at 48 hr recurrent bacteremia (had proteus bacteremia April as well) Antibiotics renally dosed (3) UTI (urinary tract infection) due to urinary indwelling catheter: Plan: recurrent proteus pyelopnephritis and another blood culture with E faecalis had a dose of meropenem at 0300; had a dose of zosyn currently on unasyn which covers both (sensis 91%) and adjusted for renal function Admission and Anticipated Discharge Date Admission Date: July 03, 2025 Subjective Seen for 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. no new complaints. at bedside. he is making more urine Review of Systems 2 Review of Systems: All other systems were reviewed and negative except as noted in HPI Physical Exam 2 Physical Exam: General exam: Appears comfortable, no acute distress HEENT: Pupils are equal and reactive to light. Hard or hearing Neck: No JVD, neck is supple trachea is midline Respiratory system: Clear breath sounds bilaterally. Gastrointestinal: Abdomen is soft, non distended, non tender, bowel sounds are present CVS: Regular rate and rhythm. No murmurs, rubs or gallops Musculoskeletal: No joint or muscle tenderness Extremities: Non tender, no edema, peripheral pulses are present Neuro: Oriented, no tremors, no focal neurological deficits Skin: No rashes Results & Data Vital Signs (Past 12 Hours) Vital Signs Temp Pulse Resp BP BP Pulse Ox O2 Del Method 07/09/25 11:19 36.2 C L 67 16 159/100 H 99 Nasal Cannula 07/09/25 07:50 36.3 C L 67 18 171/84 H 97 Nasal Cannula 07/09/25 03:59 36.4 C L 66 18 155/86 H 96 Nasal Cannula O2 Flow Rate 07/09/25 11:19 07/09/25 07:50 07/09/25 03:59 1 Laboratory Results 07/09/25 08:09 07/09/25 08:09 WBC 8.85 RBC 3.18 L MCV 87.4 MCH 28.0 MCHC 32.0 RDW Std Deviation 43.0 RDW Coeff of Scott 13.4 Plt Count 141 MPV 10.9 (3) UTI (urinary tract infection) due to urinary indwelling catheter Indwelling urinary catheter type: indwelling urethral catheter Encounter type: subsequent encounter Qualified Code(s): T83.511D - Infection and inflammatory reaction due to indwelling urethral catheter, subsequent encounter; N39.0 - Urinary tract infection, site not specified
[2025-07-10 08:34] VITALS: RESP 16
--- NOTE | 2025-07-10 09:44 | Hospitalist Progress Note ---
Date of Service July 10, 2025 Assessment & Plan (1) Acute respiratory failure with hypoxia: (2) Acute kidney injury superimposed on CKD: (3) Paroxysmal atrial fibrillation: (4) Diabetes mellitus, type II: (5) Severe aortic stenosis: (6) Chronic indwelling Yee catheter: (7) Hypotension: (8) Sepsis: (9) Bacteremia: Plan Pt is a 79 yo male with a past medical hx of severe aortic stenosis, HFpEF EF 55%, afib on chronic eliquis, DM on insulin, chronic indwelling yee due to chronic obstruction due to BPH, RLE BKA who presents from [facility] today for accidental yee removal with sudden acute respiratory failure in the ED with progressive hypotension refractory to IVF boluses requiring pressor support and ICU level of care. #AHRF/Sepsis/Bacteremia - blood cultures drawn; growing Enterococcus and Proteus Mirabilis, most recent Bcx negative for 24 hours - lactate very elevated on admission 8, improved with fluid resuscitation and pressor support - initially empirically broad coverage zosyn + vanc (cefepime dose in the ED), changed to meropenem+dapto and now on ampicillin tx - AHRF resolved, Pt on 1L via NC - Continue Ampicillin coverage for gram negative bacteremia, Bcx from 07/05 remains negative at 48 hours so 14 day abx course likely will continue from 07/05- 07/19 unless Bcx show new growth. Can consider Augmentin step down therapy upon d/c back to [facility]. Continue Ampicillin coverage 3g Q12H while inpatient. - CBC/BMP QAM #Hypotension - progressive throughout time in the ED, BPs initially permissible but progressed to 60-70/30-40s - Resolved with IV fluid boluses and pressor support #Afib - pt went into RVR rates in the 150s the morning of 07/05 with pressures as low as 60/30s - somewhat expected given illness and he has been off his home metoprolol due to concerns of being able to safely po - seen by cardio, given lopressor dose by ICU, IVF bolus, and then started on amio drip by cards with rate improvement - Restart Eliquis 2.5mg BID 07/06, Hgb has stabilized at 8.7. Restart metoprolol 50mg BID, continue PO amio 200mg per cards - Upon d/c to [facility] continue amiodarone 200mg, metoprolol home dosage of 50mg BID, and Eliquis 2.5mg BID - QAM CBC #Dysphagia - Speech therapy consulted - Speech bedside evaluation failed with concerns for aspiration, and Flouro video swallow study revealed moderate oral dysphagia - Current recommendations: Minced and moist diet, thin liquids, lidded cups, no straws #Aortic stenosis, severe #HFpEF - noted on echo in April 2025 - stat echo done on day of admission; EF 50-55% with grade I diastolic dysfunction, mod-severe aortic stenosis - cardiology consulted: patient is not valve replacement candidate due to recurrent infections and renal dysfunction #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 - baseline appears to be around Cr 3.0 the last few months - on admission Cr is 4.35 which has improved some - IVF given cautiously in the setting of severe , pressor support to maintain adequate MAP for some time - nephrology consulted, recs appreciated #Yee catheter, chronic #Hydronephrosis - pt initially here for replacement of yee, follows with urology outpatient and just had appt 2 weeks ago - yee was able to be replaced by ED staff with drainage of large amount of blood tinged urine and some clots - CT abd/pelvis did show mild to moderate hydronephrosis - urology consulted #Anemia, chronic - hemoglobin appears to be around 8.0-9.0 the last few months - no obvious source of bleeding aside from small amount of blood in the urine at time of admission - initially 12.9 -> 10.2 on day of admission pre and post fluids, suspect this drop on admission is from volume contraction more than acute blood loss - Currently 8.2 - will transfuse if hemoglobin <7 or symptomatic #DMT2- will do SSI only to start Chronic problems: GERD - 40mg Protonix QAM, typically takes 40mg BID, will start daily HLD - Atorvastatin 40mg QAM BPH: Finasteride PT/OT ordered VTE: heparin, holding home eliquis in the setting of CESAR Diet: will do speech eval prior to starting a diet Dispo: came from facility, ultimate goal would be to get him back to facility Admission and Anticipated Discharge Date Admission Date: July 03, 2025 Physical Exam Physical Exam: General: patient resting comfortably, NAD, non-toxic in appearance, answers questions appropriately. Skin: warm, dry, intact HEENT: NC/AT, anicteric sclera, conjunctiva without injection, moist mucus membranes. Greyish black hardened 1-2 cm keratinous projection of skin on R. cheek Heart: +S1/S2, regular, crescendo/decrescendo systolic murmur auscultated best at second intercostal space Lungs: equal air entry bilaterally, no rales/rhonchi/wheezes Abd: +BS, soft, NT/ND Ext: warm, no clubbing/cyanosis or edema Neuro: nonfocal, speech intact, no facial droop, moving all extremities. Results & Data Results & Data Vital Signs (Past 12 Hours) Vital Signs Temp Pulse Pulse Resp BP BP Pulse Ox 07/10/25 08:33 36.4 C L 64 16 146/79 H 96 07/10/25 03:32 36.7 C 64 18 160/76 H 98 07/09/25 23:11 36.7 C 57 L 18 136/79 98 07/09/25 23:04 54 L O2 Del Method O2 Flow Rate 07/10/25 08:33 Nasal Cannula 1 07/10/25 03:32 Nasal Cannula 1.0 07/09/25 23:11 Nasal Cannula 1.0 07/09/25 23:04 (4) Diabetes mellitus, type II Diabetes mellitus detention insulin use: with licensed marriage and family therapist use Diabetes mellitus complication status: with skin complications Diabetes mellitus complication detail: with foot ulcer Qualified Code(s): E11.621 - Type 2 diabetes mellitus with foot ulcer; L97.509 - Non-pressure chronic ulcer of other part of unspecified foot with unspecified severity; Z79.4 - longterm (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
[2025-07-10 11:03] LABS: Hematocrit (blood only) 27.4 % (42.0-52.0); Hemoglobin 9.1 g/dl (14.0-18.0); Immature Granulocytes # (auto) 0.05 K/uL (0.01-0.20); Immature Granulocytes % (auto) 0.6 %; Mean Corpuscular Hemoglobin 28.8 pg (25.0-34.0); Mean Corpuscular Volume 86.7 fL (80.0-100.0); Platelet Count 178 K/uL (130-400); RDW Standard Deviation 41.7 fL (36.4-46.3); Red Blood Count 3.16 M/uL (4.70-6.10); White Blood Count 8.48 K/ul (4.8-10.8)
[2025-07-10 11:20] LABS: Anion Gap 5.0 (3-11); Blood Urea Nitrogen 31.0 mg/dl (6-23); Calcium 8.4 mg/dl (8.6-10.3); Carbon Dioxide 33.0 mmol/L (21-32); Chloride 103.0 mmol/L (98-107); Creatinine Clr Calc Pharmacy 20.8 ml/min; Glucose 163.0 mg/dl (70-99(Fasting)); Potassium 3.3 mmol/L (3.5-5.1); Sodium 141.0 mmol/L (136-145)
--- NOTE | 2025-07-10 11:35 | Discharge Summary ---
Date of Service July 10, 2025 Admission HPI Per Admitting Provider Pt is a 79 yo male with a past medical hx of severe aortic stenosis, HFpEF EF 55%, afib on chronic eliquis, DM on insulin, chronic indwelling yee due to chronic obstruction due to BPH, RLE BKA who presents from [facility] today for accidental yee removal with sudden acute respiratory failure in the ED. Pt seen at the bedside for admission. He appears quite ill with increased resp effort and at the time did not respond meaningfully to voice or touch, did groan to sternal rub. Paperwork from facility notes DNR/DNI status. IVF bolus 500mL given with little improvement for a short time. There was notable difficulty with getting a BP for this pt but when BP was able to be gotten by automatic cuff it was 70/40s initially. Manual palpation BP was 80s. BP then shortly after by automatic cuff read 160/130s. Pt did appear to perk up with another 500 mL bolus of fluids, did start to mumble some words. Yee catheter placed which drained substantial amount of bloody urine with some clots. Reassessed later in the afternoon and once again ill appearing and no longer responding meaningfully to verbal or tactile stimuli with BPs again 60-70/30-40s during 3 readings with one reading taken in the R arm and 2 in the left with consistency across the arms and pressure maintained low with the completion of a third bolus of IV fluid 500 mL. Discussed case with attending and ED provider and pt was started on pressor support by the ED provider. Phosphoric Acid Operator was contacted for admit to the ICU. ED provider attempted to get ahold of 2 of the family members in the chart with no success. Admission Exam Per Admitting Provider General: Acutely ill appearing, respiratory distress HEENT: Normocephalic, dry oral mucosa, Cardio: Regular rate and rhythm, +murmur Resp: Breath sounds very coarse of the upper airway limiting accurate auscultation of lower airway GI: Soft and nontender, nondistended, bowel sounds active Skin: Pale, cool Principal Diagnosis Sepsis/UTI/AHRF Discharge Exam General: patient resting comfortably, NAD, non-toxic in appearance, answers questions appropriately. Skin: warm, dry, intact HEENT: NC/AT, anicteric sclera, conjunctiva without injection, moist mucus membranes. Heart: +S1/S2, regular, no m/r/g Lungs: equal air entry bilaterally, no rales/rhonchi/wheezes Abd: +BS, soft, NT/ND Ext: warm, no clubbing/cyanosis or edema Neuro: nonfocal, speech intact, no facial droop, moving all extremities. Discharge Data Allergies Allergy/AdvReac Type Severity Reaction Status Date / Time lisinopril Allergy Severe Swelling Verified 06/21/25 13:07 of Face/Lips/Tongue hydrochlorothiazide Allergy Unknown Unknown - Unverified 06/21/25 13:07 On file w/ [facility] Re[facility] Consultations 07/03/25 14:32 ED Decision to Admit Stat 07/03/25 18:49 Consult Cardiology Routine Consult Phosphoric Acid Operator Routine Consult Nephrology Routine Consult Urology Routine Ordered Studies 07/03/25 13:19 CT abd pelvis wo con Stat 07/03/25 19:15 US venous doppler LE BI Stat 07/03/25 19:[address] [CT head/brain wo con] Stat 07/06/25 13:45 FL video swallow Routine Hospital Course (1) Acute respiratory failure with hypoxia: (2) Acute kidney injury superimposed on CKD: (3) Paroxysmal atrial fibrillation: (4) Diabetes mellitus, type II: (5) Severe aortic stenosis: (6) Chronic indwelling Yee catheter: (7) Hypotension: (8) Sepsis: (9) Bacteremia: Plan Pt is a 79 yo male with a past medical hx of severe aortic stenosis, HFpEF EF 55%, afib on chronic eliquis, DM on insulin, chronic indwelling yee due to chronic obstruction due to BPH, RLE BKA who presents from [facility] 07/03 for accidental yee removal requiring replacement with sudden acute respiratory failure in the ED with progressive hypotension refractory to IVF boluses requiring pressor support and ICU level of care for approximately 48 hours. Patient's status quickly improved and was able to be transferred to medical floors as status quickly improved after treatment with high flow oxygen, pres sors, fluids, and IV abx. #AHRF/Sepsis/Bacteremia - blood cultures drawn; growing Enterococcus and Proteus Mirabilis, most recent Bcx negative for 24 hours - lactate very elevated on admission 8, improved with fluid resuscitation and pressor support - Initially empirically broad coverage zosyn + vanc (cefepime dose in the ED), changed to meropenem+dapto and now on ampicillin tx - AHRF resolved, Pt on 1L via NC - Continue Ampicillin coverage for bacteremia, Bcx from 07/05 remains negative after 5 days of growth, 7 days of Ampicillin 3g Q12H treatment completed - Continue Augmentin 875mg BID for the next 3 weeks, with one dose given tonight. Prescription sent to [facility] pharmacy - Please repeat blood cultures in 1 month from d/c once off abx for approximately 1 week to re-evaluate bactermia #Hypotension - progressive throughout time in the ED, BPs initially permissible but progressed to 60-70/30-40s - Resolved with IV fluid boluses and pressor support #Afib - pt went into RVR rates in the 150s the morning of 07/05 with pressures as low as 60/30s - somewhat expected given illness and he has been off his home metoprolol due to concerns of being able to safely po - seen by cardio, given lopressor dose by ICU, IVF bolus, and then started on amio drip by cards with rate improvement - Restart Eliquis 2.5mg BID 07/06, Hgb has stabilized at 8.7. Restart metoprolol 50mg BID, continue PO amio 200mg per cards - Upon d/c to [facility] continue amiodarone 200mg, metoprolol home dosage of 50mg BID, and Eliquis 2.5mg BID #Dysphagia - Speech therapy consulted - Speech bedside evaluation failed with concerns for aspiration, and Flouro video swallow study revealed moderate oral dysphagia - Current recommendations: Minced and moist diet, thin liquids, lidded cups, no straws #Aortic stenosis, severe #HFpEF - noted on echo in April 2025 - stat echo done on day of admission; EF 50-55% with grade I diastolic dysfunction, mod-severe aortic stenosis - cardiology consulted: patient is not valve replacement candidate due to recurrent infections and renal dysfunction #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 - Baseline appears to be around Cr 3.0 the last few months - on admission Cr is 4.35 which has improved to 2.69 - IVF given cautiously in the setting of severe , pressor support to maintain adequate MAP for some time #Yee catheter, chronic #Hydronephrosis - pt initially here for replacement of yee, follows with urology outpatient and just had appt 2 weeks ago - yee was able to be replaced by ED staff with drainage of large amount of blood tinged urine and some clots - CT abd/pelvis did show mild to moderate hydronephrosis - urology consulted #Anemia, chronic - hemoglobin appears to be around 8.0-9.0 the last few months - no obvious source of bleeding aside from small amount of blood in the urine at time of admission - initially 12.9 -> 10.2 on day of admission pre and post fluids, suspect this drop on admission is from volume contraction more than acute blood loss - Currently 8.2 - will transfuse if hemoglobin <7 or symptomatic #DMT2- will do SSI only to start Chronic problems: GERD - 40mg Protonix QAM, typically takes 40mg BID, will start daily HLD - Atorvastatin 40mg QAM BPH: Finasteride Total Time Total Time Spent Total Time Spent (In Minutes): less than 30 Discharge Plan Discharge Items Patient Disposition: Home - Self-Care Reason For Visit: AHRF, SHOCK, CATHETER REPLACEMENT Discharge Diagnosis: Sepsis/UTI/AHRF Condition on Discharge: Critical Activity: Per Instructions section Non-emergency contact: Primary Care Provider Call non-emergency contact if: your symptoms worsen and your pain is not controlled Follow-up/Referrals: Isai Garcia III, MD [Primary Care Provider] - Diet: Low Sodium (2gm) Addtl Attending Provider Instructions: You were admitted to the hospital for a UTI complicated by sepsis, difficulty breathing and very low blood pressures requiring IV blood pressure raising medications and fluids. Thankfully, you quickly turned around in about 48 hours of fluids, IV medication and IV antibiotics, but there was a period of time that you were very sick. Your blood cultures did show growth of two separate bugs and one of these bugs was also found in your urine. These bugs were looked at under a microscope and it was determined that the Ampicillin Sulbactam antibiotic that you are currently on works very well for your specific infection. You have been on this antibiotic for 7 days thus far, and once you are discharged we will put you on the oral equivalent of this medication for the next 3 weeks. This new medication is called Augmentin, and you will take this medication twice daily for the next 21 days with one dose given tonight. After you have finished this antibiotic course, we recommend that you get blood cultures in 1 month after discharge. This will be important to complete because we want to see that after your antibiotic therapy has been complete for about a week and you are off antibiotics, does your blood still remain clear of infection. This test will t ell us if you need more antibiotics or if your infection has cleared for good. You have been stable with some shortness of breath, but this has been much improved compared to when you were on 40L of oxygen. Today you have been mostly off oxygen completely, but have sometimes required 1-2L when feeling short of breath. However it is reassuring that your oxygen sats have remained well above 90% which is your goal oxygen level. While in the hospital your heart went into a condition called A-fib that you do have a history of. In order to control the rhythm of your heart a new medication called amiodarone has been prescribed. Please take this medication once per day until your next PCP evaluation. I do not expect this to be a permanent medication, but do want you to continue this for at least a month. I expect that your rhythm changes have resolved at this point, and that these changes occurred because you were very sick, but we still would like some protection of your heart rhythm for the time being. Your birthday is coming up, and you have said that you want a t-bone steak. We have discussed to please eat this steak slowly and in small bites as speech therapy did evaluate you and wanted you to avoid choking on tougher dryer foods and have recommended a minced and moist diet. They also want you to use lidded cups, avoid straws and chugging fluids. I do want wish you a early happy birthday! All the details of your medication changes discussed above can be found bolded below. A discharge summary will be sent to your primary care physician to ensure continuity of care. Please bring this discharge summary with you to your next office appointment so that your provider can review it at that time. Follow-up appointments: Make a follow-up appointment with your PCP within the next week. It is very important that you follow up with them shortly after discharge from the hospital. Medications: Your medication list has been reviewed and reconciled upon discharge to ensure accuracy and continuity of care. An updated list of all your medications is included with your hospital discharge paperwork. Please review this list closely, and make note of any changes. We sent a new medication called Augmentin to your pharmacy. Take Augmentin 875mg one tablet twice daily for the next 21 days and one dose tonight. This will comprise of 43 pills total. Please take this medication with food as it can cause some stomach upset. We sent a new medication called Amiodarone to your pharmacy. Take Amiodarone 200mg one tablet daily. This will likely not be a permanent medication as discussed above, please discuss continuation of this medication after completing your prescription with your PCP. Take your medications as instructed; do not skip a dose of your medicines. Make sure all of your doctors know every medicine you are taking (including erxr-wwe-rdcqkjc medicines, vitamins, and supplements). Call your primary care provider before taking any new medicines (including gbrp-zmz-djlfmoq medicines, vitamins, and supplements), because some of these may interact with your current medications, or may make your symptoms worse. Tell your primary care provider if you cannot afford your medications. CONTACT YOUR PRIMARY CARE PROVIDER if you experience any of the following: Difficulty following your treatment plan, or difficulty taking medications CALL 911 OR GO TO THE EMERGENCY DEPARTMENT if you experience any of the following: Sudden, severe abdominal pain or nausea/vomiting Severe chest pain, or chest pain that radiates (moves) to your jaw or arm Sudden, severe shortness of breath or difficulty breathing Thank you for allowing us to participate in your care. Pending Studies at Discharge: No Stand-Alone Forms: [facility], Pain - Opioid Pain Management, Work/School Release, Smoking Cessation Medications and DC Order Prescriptions: New amoxicillin-pot clavulanate 875-125 mg tablet 1 tab PO Q12H Qty: 43 0RF amiodarone 200 mg tablet 200 mg PO DAILY Qty: 30 0RF Continued insulin glargine [Lantus Solostar U-100 Insulin] 100 unit/mL (3 mL) insulin pen 5 unit SUBCUT HS metoprolol succinate 50 mg Tablet Extended Release 24 Hr 50 mg PO BID Qty: 60 0RF Eliquis 2.5 mg Tablet 2.5 mg PO BID Qty: 60 0RF furosemide [Lasix] 20 mg tablet 20 mg PO DAILY Qty: 30 0RF polyethylene glycol 3350 [Miralax] 17 gram Powder In Packet 17 g PO DAILY PRN (Reason: constipation) Qty: 14 0RF acetaminophen [Tylenol] 325 mg Tablet 650 mg PO Q6H MDD 3g/24hrs PRN (Reason: Fever greater than 100/Pain) magnesium hydroxide [Milk of Magnesia] 400 mg/5 mL Suspension 2,400 mg PO DAILY PRN (Reason: Constipation) Rx Instructions: Give 30ml by mouth as needed for constipation after no BM for three days, administer MPM on 7-3 shift amitriptyline 10 mg Tablet 30 mg PO HS bisacodyl [Dulcolax (bisacodyl)] 10 mg Suppository 10 mg SC DAILY PRN (Reason: Constipation) Rx Instructions: Insert 1 unit rectally as needed for constipation, give suppository on day 3; 3-11 shift if no BM after MOM Fleet Enema 19-7 gram/118 mL Enema 118 ml SC DAILY PRN (Reason: Constipation) Rx Instructions: Insert 1 unit rectally as needed for constipation if no BM after dulcolax administer fleets on 7-3 shift; day 4 insulin lispro [Humalog U-100 Insulin] 100 unit/mL Solution 2 unit subcut TIDWMEAL insulin lispro [Humalog U-100 Insulin] 100 unit/mL Solution 1 sliding scale dose SUBCUT USEASDIRECTD Rx Instructions: Subcutaneously before meals and at bedtime for DM. 350-400 = 8units; 401-450 = 12units; 451-500 = 16units; 501-550 = 18units. Recheck in 1 hour, report result to MD/OIL RAG WASHER. BSG<90, BSG>551 Glucagon Emergency Kit (human) 1 mg Recon Soln 1 mg IM DIRECTED PRN (Reason: Hypoglycemia) docusate sodium 100 mg Tablet 100 mg PO AMHS Saccharomyces boulardii [Florastor] 250 mg Capsule 250 mg PO AMHS Rx Instructions: Start Date 03/10/25 x5 weeks pregabalin 75 mg Capsule 75 mg PO AMHS atorvastatin 40 mg tablet 40 mg PO HS sennosides-docusate sodium [Senokot-S] 8.6-50 mg tablet 1 tab PO AMHS finasteride 5 mg tablet 5 mg PO QAM oxycodone 5 mg tablet 5 mg PO Q6H PRN (Reason: Pain) tamsulosin 0.4 mg capsule 0.4 mg PO HS pantoprazole 40 mg tablet,delayed release (DR/EC) 40 mg PO BID Qty: 60 0RF Discharge Orders: Discharge Order (Routine); Ordered 07/10/25 Ordered By: Oziel Cyr Admission Data Admit Date/Time: 07/03/25 17:36 Attending Provider: Norberto Mcmullen Admit Provider: Carolyn Cam Primary Care Provider: Isai Garcia III Other Providers: Anton August; Kelechi Donahue; Daphney Eric; Joni Leong. Supervising Physician Co-Signing Physician Notes I personally examined the patient and verified all diaz points of history and exam, discussed case, and agree with decision making with Dr Cyr feeling good overall and would very much like to leave. Hopes to make it back in time for 2 PM bingo. Vitals noted, in general he is awake and alert pleasant no distress. HEENT normocephalic atraumatic mucous membranes moist. Breathing unlabored no accessory muscle use good effort. Skin without rashes pallor or icterus. Neuro without focal deficits. Severe sepsis/septic shock present on admissionboth Proteus UTI/bacteremia and Enterococcus bacteremiaI suspect the Proteus was the cause of the severe sepsis, septic shock; at the same time, have to pay deference to the risk of endocarditis with Enterococcusrepeat cultures cleared quickly, and there is no vegetation on transthoracic echo. Case was discussed with infectious disease team at pharmacy rounds last weekthey suggested IV Unasyn while inpatient followed by Augmentin as an outpatientwe will follow through with this. Given the enterococcal bacteremia, will treat for 4 weeks of total antibiotics, and repeat blood cultures a week after cessation of therapy. Overall safe/stable for home, although I did discuss with him we may not be able to get him back to the facility and time for bingo. He expressed understanding. Resident Activity Tracking Resident Involvement: Resident Care Provided Care Provided: Adult Hospital Medicine
--- NOTE | 2025-07-10 12:03 | Nephrology Progress Note ---
Date of Service July 10, 2025 Assessment & Plan Admission and Anticipated Discharge Date Admission Date: July 03, 2025 Subjective Assessment & Plan (1) Acute kidney injury superimposed on CKD: Plan: somewhat improved stage 1 nonoliguric CESAR on rapidly progressive and advanced CKD in pt w/ chronic yee, new hydronephrosis. creatinine 4.2 on presentation; improved to 2.69 today; most recent creatinine baseline about 3-3.3 since mid May daily bmp cont nephrotoxin avoidance Monitor and replete k as needed nephro f/u within 2 weeks (2) Bacteremia: Plan: has P mirabilis in urine; has 2 Proteus species plus enterococcus in blood; f/u cxs pending and NGTD at 48 hr recurrent bacteremia (had proteus bacteremia April as well) Antibiotics renally dosed (3) UTI (urinary tract infection) due to urinary indwelling catheter: Plan: recurrent proteus pyelopnephritis and another blood culture with E faecalis had a dose of meropenem at 0300; had a dose of zosyn currently on unasyn which covers both and adjusted for renal function Subjective Seen for 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. no new complaints. he is making more urine Review of Systems Review of Systems: All other systems were reviewed and negative except as noted in HPI Physical Exam Physical Exam: General exam: Appears comfortable, no acute distress HEENT: Pupils are equal and reactive to light. Hard or hearing Neck: No JVD, neck is supple trachea is midline Respiratory system: Clear breath sounds bilaterally. Gastrointestinal: Abdomen is soft, non distended, non tender, bowel sounds are present CVS: Regular rate and rhythm. No murmurs, rubs or gallops Musculoskeletal: No joint or muscle tenderness Extremities: Non tender, no edema, peripheral pulses are present Neuro: Oriented, no tremors, no focal neurological deficits Skin: No rashes Results & Data Vital Signs (Past 12 Hours) Vital Signs Temp Pulse Resp BP Pulse Ox O2 Del Method O2 Flow Rate 07/10/25 11:58 Room Air 07/10/25 08:33 36.4 C L 64 16 146/79 H 96 Nasal Cannula 1 07/10/25 03:32 36.7 C 64 18 160/76 H 98 Nasal Cannula 1.0
[2025-07-10 12:07] VITALS: TEMP 97.9
--- NOTE | 2025-07-10 12:33 | Billing Data ---
Date of Service July 10, 2025 Coding Level of Care Code 37684 IN/OBS DISCH 30 MIN/LESS
[2025-07-10 12:59] VITALS: BP 136/79; PULSE 58; O2SAT 93
--- NOTE | 2025-07-11 12:22 | Coding Query ---
CODING QUERY To promote full compliance with coding requirements relating to patient care, provider participation is requested in all cases of programmer uncertainty. Please assist us with the question(s) below: Coding Question(s): Pt admitted with UTI & Sepsis. 07/09 Nephrology PN & 07/07 Uro notes mention UTI caused by indwelling urethral catheter. Please check below the phrase that applies. Thank you! Checo Haney [employer] [facility] Physician's Response(s): ____x The etiology of the UTI & Sepsis was the indwelling uinary catheter POA The UTI & Sepsis was NOT caused by an indwelling urinary catheter . ____x Other: / please document: while the sepsis / UTI was almost certainly due to CAUTI from indwelling cath POA, he also had enterococcal bacteremia that could have also been cause of sepsis Principal Diagnosis: "that condition established after study, to be chiefly responsible for occasioning the admission of the patient to the hospital for care." Co-Existing Principal Diagnosis: "when two or more diagnoses equally meet the criteria for principal diagnosis as determined by the circumstances of admission, diagnostic work up, and/or therapy provided, and the Alphabetic Index, Tabular List, or another coding guideline does not provide sequencing direction, any one of the diagnoses may be sequenced first." "When the physician has documented what appears to be a current diagnosis in the body of the record, but has not included the diagnosis in the final diagnostic statement, the physician should be asked whether the diagnosis should be added." (Source Coding [facility] 2 QTR90. p3-4) JEFF
== END 2025-07-10 14:12 | DRG 698 ==
LOC: ED 11:57 → SUATTDRO 17:36 → 1E 17:36 → 2S 07-05 19:06

== ENCOUNTER 2025-08-08 16:46 | Inpatient (IN) ==
[2025-08-08] MEDS: SODIUM CHLORIDE 0.9% 500 ML IV ONE (17:02)
--- NOTE | 2025-08-08 17:03 | Emergency Department Note ---
Impression & Plan Urinary tract infection, Complicated urinary tract infection, Acute alteration in mental status, Pneumonia, Anemia, CESAR (acute kidney injury) ED Provider Note NAME: KATHARINE VANN AGE: 80 SEX: M : 1945 ARRIVES VIA: Ambulance INFORMANT: Patient, EMS ED PROVIDER(S): Hill Delacruz DO CHIEF COMPLAINT: Altered mental status HPI: The patient is an 80-year-old male who presented to the emergency department for an evaluation of altered mental status. The patient presented from a longterm. History was severely limited as the patient is not able to answer questions at this time. I am unsure if this is baseline for him. He does have a history of sepsis and there was concerns that the patient may be infected. He is also been more confused than usual. ROS: See above HPI for pertinent positives & negatives. A total of 10 systems reviewed and were otherwise negative. PAST MEDICAL HISTORY: See Below PAST SURGICAL HISTORY: See Below FAMILY HISTORY: See Below SOCIAL HISTORY: See Below HOME MEDICATIONS: See Below ALLERGIES: See Below VITALS: See Below PHYSICAL EXAMINATION: GENERAL: The patient is awake to loud verbal commands. He follows commands intermittently. EYES: The conjunctivae are clear. The pupils are round and reactive. EARS, NOSE, MOUTH AND THROAT: The nose is without any evidence of any deformity. Mucous membranes are Dry. NECK: The neck is nontender and supple. RESPIRATORY: Normal respiratory effort is noted there is no evidence of wheezing rhonchi or rales CARDIOVASCULAR: Regular rate and rhythm noted there no murmurs rubs or gallops normal S1 normal S2. GASTROINTESTINAL: The abdomen is soft. Abdomen is nontender. MUSCULOSKELETAL/EXTREMITIES: Right lower extremity amputation was noted. SKIN: Skin is warm and dry. Pedal edema was noted. NEUROLOGIC: Patient is awake to loud verbal commands. The patient does not answer questions. I am not able to assess orientation at this time. MEDICAL DECISION MAKING: The patient is an 80-year-old male who presented to the emergency department by ambulance for an evaluation of altered mental status. The patient has a history of indwelling Hanna catheter as well as urinary tract infection. I discussed the patient's laboratory and radiographic studies with him. He was treated with IV fluids and IV antibiotics in conjunction with the patient's previous urine culture. I discussed patient condition with the on-call [facility] hospitalist. He has agreed to evaluate the patient in the emergency department for further management and disposition. The patient initially had poor urine output but this improved after IV hydration. Triage Nursing notes reviewed. Prior medical records reviewed Vital Signs: reviewed and remarkable for bradycardia Differential diagnosis: Infection, hypoglycemia, electrolyte abnormalities, overdose, toxicologic, cardiac sources, intracerebral event, neurologic, trauma, as well as other pathologies. ER treatment provided: See below Diagnostics interpreted by me: ECG: EKG was obtained in the emergency department. My interpretation is sinus rhythm at 60 bpm. First-degree AV block is noted. Right bundle branch block pattern was also noted with LVH. This was compared to a tracing from July 05, 2025. Sinus rhythm has replaced atrial fibrillation otherwise no changes were noted. Cardiac Monitoring: An order was placed for continuous cardiac monitoring. The monitor shows a rate of 55 bpm with sinus bradycardia. Laboratory studies: As stated above and show below. Imaging studies: See below. Radiographic imaging was reviewed by myself Consultation(s): I discussed this case with Dr. Patterson who is on-call for the [facility] hospitalist group. After evaluation by the hospitalist a CT of the abdomen and pelvis was ordered. The radiology read is still pending but the Hanna was noted to be in the prostate. I asked our nurse to replace the Hanna. Past Med/Surg History Problem List (Updated 08/08/25 @ 22:01 by Gerald Hagan MD) Encephalopathy CESAR (acute kidney injury) (Acute) Anemia (Acute) Pneumonia (Acute) Acute alteration in mental status (Acute) Complicated urinary tract infection (Acute) Urinary tract infection (Acute) Sepsis Bacteremia Shock Acute and chronic respiratory failure with hypoxia (Acute) Septic shock (Acute) Hypotension UTI (urinary tract infection) due to urinary indwelling catheter (Chronic) Chronic retention of urine (Chronic) BPH w urinary obs/LUTS (Chronic) Acute heart failure with preserved ejection fraction Aortic stenosis Atrial fibrillation with rapid ventricular response (Acute) Acute CHF (Acute) Acute UTI (Acute) Acute respiratory failure with hypoxia (Acute) Acute kidney injury (CESAR) with acute tubular necrosis (ATN) Acute kidney injury superimposed on CKD S/P BKA (below knee amputation) unilateral Weakness (Acute) Symptomatic anemia (Acute) Catheter-associated urinary tract infection Diabetic foot ulcers Closed compression fracture of thoracic vertebra (Acute) Lymphedema (Chronic) Fall (Acute) Open wound of finger (Acute) Diabetic peripheral neuropathy associated with type 2 diabetes mellitus HTN (hypertension) Diabetic ulcer of right foot (Acute) Charcot foot due to diabetes mellitus Closed T12 fracture (Acute) Diabetic ulcer of left heel (Acute) Hyponatremia (Acute) Otitis externa of left ear Chronic indwelling Hanna catheter (Chronic) Otitis externa Ambulatory dysfunction Severe aortic stenosis Chronic heart failure with preserved ejection fraction (HFpEF) Ear drum perforation Severe hearing loss Open wound of abdomen (Acute) Homeless (Acute) Edema of both legs Hypertension Paroxysmal atrial fibrillation Diabetes mellitus, type II (Chronic) Dyslipidemia Medical History Pyelonephritis Hydronephrosis, bilateral Asymptomatic hypertensive urgency Bilateral lower leg cellulitis Blister of finger Maggot infestation CESAR (acute kidney injury) Surgical History History of ear surgery age 19, mastoid H/O shoulder surgery S/P foot surgery, left Family History Brother Diabetes Social History Smoking Status: Unknown if ever smoked Tobacco Type: Cigarettes Second Hand Exposure: No; Do You Dip or Chew Tobacco: No; Hx Alcohol Use: No Hx Substance Use: No Preferred Language: Amharic Communication Ability: Impaired Communication Ability Comment: Hearing Loss. Visual Impairment: Limited Hearing Ability: Use of Hearing Aid Career Development Specialist Required: No Beliefs That Will Affect Care: None marital status: Current Living Situation: Personal Care Facility Current Living Situation Comment: [facility] current occupational status: retired How many Children do You have: 3 Feels Safe at Home: Yes during the past year weight has: remained stable Dental Care, Regularly: No Physical Activity Frequency: Does not Exercise Assistive Devices: Wheelchair Allergies Allergies Allergy/AdvReac Type Severity Reaction Status Date / Time lisinopril Allergy Severe Swelling Verified 06/21/25 13:07 of Face/Lips/Tongue hydrochlorothiazide Allergy Unknown Unknown - Unverified 06/21/25 13:07 On file w/ [facility] Home Meds Home Medications Medication Instructions Recorded Confirmed insulin glargine 100 unit/mL (3 5 unit subcut HS 04/07/24 08/08/25 mL) subcutaneous pen (Lantus Solostar U-100 Insulin) acetaminophen 325 mg tablet 650 mg PO Q6H PRN Fever greater 03/15/25 08/08/25 (Tylenol) than 100/Pain amitriptyline 10 mg tablet 30 mg PO HS 03/15/25 08/08/25 atorvastatin 40 mg tablet 40 mg PO HS 03/15/25 08/08/25 docusate sodium 100 mg tablet 100 mg PO AMHS 03/15/25 08/08/25 finasteride 5 mg tablet 5 mg PO QAM 03/15/25 08/08/25 glucagon 1 mg solution for 1 mg IM DIRECTED PRN 03/15/25 08/08/25 injection (Glucagon Emergency Kit) Hypoglycemia insulin lispro 100 unit/mL 1 sliding scale dose subcut 03/15/25 08/08/25 subcutaneous solution (Humalog USEASDIRECTD U-100 Insulin) insulin lispro 100 unit/mL 2 unit subcut TIDM 03/15/25 08/08/25 subcutaneous solution (Humalog U-100 Insulin) pregabalin 75 mg capsule 75 mg PO AMHS 03/15/25 08/08/25 sennosides 8.6 mg-docusate sodium 1 tab PO AMHS constipation 03/15/25 08/08/25 50 mg tablet (Senokot-S) tamsulosin 0.4 mg capsule 0.4 mg PO HS 03/15/25 08/08/25 amiodarone 200 mg tablet 200 mg PO QAM 08/08/25 08/08/25 apixaban 2.5 mg tablet (Eliquis) 2.5 mg PO AMHS 08/08/25 08/08/25 furosemide 20 mg tablet (Lasix) 20 mg PO QAM 08/08/25 08/08/25 ipratropium 0.5 mg-albuterol 3 mg 3 ml inhalation Q4 PRN Shortness 08/08/25 08/08/25 (2.5 mg base)/3 mL nebulization Of Breath Or Wheezing soln metoprolol succinate 50 mg 50 mg PO AMHS 08/08/25 08/08/25 tablet,extended release 24 hr Previous Rx's Medication Instructions Recorded pantoprazole 40 mg tablet,delayed 40 mg PO BID #60 tabs 03/20/25 release Results & Data (ED) Vital Signs Vital Signs - 24 hr 08/08/25 16:56 08/08/25 16:56 08/08/25 16:56 Temperature 36.7 C Temperature Source Oral Pulse Rate 58 L 58 L Pulse Rate [Apical] 61 Pulse Rate from SpO2 Sensor Pulse Rhythm Regular Regular Pulse Rhythm [Apical] Regular Pulse Strength Normal Pulse Strength [Apical] Normal Respiratory Rate 13 13 21 Respiratory Effort / Characteristics Non-Labored Spontaneous Non-Labored Spontaneous Respiratory Depth Normal Normal Respiratory Pattern Regular Regular Blood Pressure 119/80 Blood Pressure [Right Arm] 119/80 Blood Pressure Mean 93 Blood Pressure Mean [Right Arm] 93 Blood Pressure Position Lying Blood Pressure Position [Right Arm] Lying Pulse Oximetry 100 100 96 Oxygen Delivery Method Nasal Cannula Nasal Cannula Nasal Cannula Oxygen Flow Rate 4 4 4 Sepsis Recent Fever Within 48 Hours No Sepsis New/Unexplained Change in Mental Status Yes Sepsis Action Taken by Nursing No Action Required 08/08/25 17:00 08/08/25 17:26 08/08/25 17:41 Temperature Temperature Source Pulse Rate Pulse Rate [Apical] 57 L 58 L Pulse Rate from SpO2 Sensor Pulse Rhythm Pulse Rhythm [Apical] Regular Regular Pulse Strength Pulse Strength [Apical] Normal Normal Respiratory Rate 14 22 Respiratory Effort / Characteristics Non-Labored Spontaneous Non-Labored Spontaneous Respiratory Depth Normal Normal Respiratory Pattern Regular Regular Blood Pressure Blood Pressure [Right Arm] 132/70 131/68 Blood Pressure Mean Blood Pressure Mean [Right Arm] 90 89 Blood Pressure Position Blood Pressure Position [Right Arm] Lying Lying Pulse Oximetry 100 100 100 Oxygen Delivery Method Nasal Cannula Nasal Cannula Nasal Cannula Oxygen Flow Rate 4 4 4 Sepsis Recent Fever Within 48 Hours Sepsis New/Unexplained Change in Mental Status Sepsis Action Taken by Nursing 08/08/25 17:48 08/08/25 18:15 08/08/25 18:30 Temperature Temperature Source Pulse Rate 57 L Pulse Rate [Apical] 56 L 56 L Pulse Rate from SpO2 Sensor Pulse Rhythm Pulse Rhythm [Apical] Regular Regular Pulse Strength Pulse Strength [Apical] Normal Normal Respiratory Rate 12 13 Respiratory Effort / Characteristics Non-Labored Spontaneous Non-Labored Spontaneous Respiratory Depth Normal Normal Respiratory Pattern Regular Regular Blood Pressure Blood Pressure [Right Arm] 118/62 114/61 Blood Pressure Mean Blood Pressure Mean [Right Arm] 80 78 Blood Pressure Position Blood Pressure Position [Right Arm] Lying Lying Pulse Oximetry 100 100 Oxygen Delivery Method Nasal Cannula Nasal Cannula Oxygen Flow Rate 4 4 Sepsis Recent Fever Within 48 Hours Sepsis New/Unexplained Change in Mental Status Sepsis Action Taken by Nursing 08/08/25 19:00 08/08/25 19:09 08/08/25 19:15 Temperature Temperature Source Pulse Rate 52 L 52 L Pulse Rate [Apical] 55 L Pulse Rate from SpO2 Sensor 52 L 52 L Pulse Rhythm Pulse Rhythm [Apical] Pulse Strength Pulse Strength [Apical] Respiratory Rate 15 13 12 Respiratory Effort / Characteristics Respiratory Depth Normal Respiratory Pattern Blood Pressure 107/59 L 100/51 L Blood Pressure [Right Arm] 104/57 L Blood Pressure Mean 75 67 Blood Pressure Mean [Right Arm] 72 Blood Pressure Position Blood Pressure Position [Right Arm] Pulse Oximetry 100 100 98 Oxygen Delivery Method Nasal Cannula Nasal Cannula Nasal Cannula Oxygen Flow Rate 3 3 3 Sepsis Recent Fever Within 48 Hours Sepsis New/Unexplained Change in Mental Status Sepsis Action Taken by Nursing 08/08/25 19:39 08/08/25 19:45 08/08/25 20:00 Temperature Temperature Source Pulse Rate 52 L 54 L Pulse Rate [Apical] 55 L Pulse Rate from SpO2 Sensor 52 L 52 L Pulse Rhythm Pulse Rhythm [Apical] Pulse Strength Pulse Strength [Apical] Respiratory Rate 12 20 14 Respiratory Effort / Characteristics Respiratory Depth Normal Respiratory Pattern Blood Pressure 112/60 Blood Pressure [Right Arm] 126/50 L Blood Pressure Mean 77 Blood Pressure Mean [Right Arm] 75 Blood Pressure Position Blood Pressure Position [Right Arm] Pulse Oximetry 100 99 100 Oxygen Delivery Method Nasal Cannula Nasal Cannula Nasal Cannula Oxygen Flow Rate 3 3 3 Sepsis Recent Fever Within 48 Hours Sepsis New/Unexplained Change in Mental Status Sepsis Action Taken by Nursing 08/08/25 20:00 08/08/25 22:07 Temperature Temperature Source Pulse Rate 55 L 49 L Pulse Rate [Apical] Pulse Rate from SpO2 Sensor 55 L Pulse Rhythm Pulse Rhythm [Apical] Pulse Strength Pulse Strength [Apical] Respiratory Rate 12 Respiratory Effort / Characteristics Respiratory Depth Respiratory Pattern Blood Pressure 126/50 L Blood Pressure [Right Arm] Blood Pressure Mean 75 Blood Pressure Mean [Right Arm] Blood Pressure Position Blood Pressure Position [Right Arm] Pulse Oximetry 100 Oxygen Delivery Method Nasal Cannula Oxygen Flow Rate 3 Sepsis Recent Fever Within 48 Hours Sepsis New/Unexplained Change in Mental Status Sepsis Action Taken by Detention Medications Current Medication List: was personally reviewed by me Laboratory Data Attestation: I reviewed the patient's lab results. 08/08/25 17:14 08/08/25 17:14 Lab Results 08/08/25 08/08/25 08/08/25 Range/Units 17:14 17:33 20:00 WBC 18.93 H (4.8-10.8) K/ul RBC 3.06 L (4.70-6.10) M/uL Hgb 8.6 L (14.0-18.0) g/dl Hct 27.2 L (42.0-52.0) % MCV 88.9 (80.0-100.0) fL MCH 28.1 (25.0-34.0) pg MCHC 31.6 L (32.0-36.0) g/dL RDW Std Deviation 45.9 (36.4-46.3) fL RDW Coeff of Scott 14.2 (11.5-14.5) % Plt Count 191 (130-400) K/uL MPV 10.7 (9.4-12.4) fL Immature Gran % (Auto) 0.4 % Neut % (Auto) 81.2 % Lymph % (Auto) 11.1 % Villalba % (Auto) 6.6 % Eos % (Auto) 0.4 % Baso % (Auto) 0.3 % Neut # (Auto) 15.35 H (1.40-6.50) K/uL Lymph # (Auto) 2.11 (1.20-3.40) K/uL Villalba # (Auto) 1.25 H (0.11-0.59) K/uL Eos # (Auto) 0.08 (0.00-0.50) K/uL Baso # (Auto) 0.06 (0.00-0.20) K/uL Immature Gran # (Auto) 0.08 (0.01-0.20) K/uL PT 12.3 H (9.0-12.0) Seconds INR 1.2 H (0.9-1.1) APTT 31 (21-31) Seconds PTT Ratio 1.1 VBG pH 7.36 (7.36-7.41) VBG pCO2 56 H (38-50) mmHg VBG pO2 40 mmHg VBG HCO3 32 mmol/L VBG O2 Saturation 69.6 % VBG Base Excess 4.6 mEq/L Sodium 139 (136-145) mmol/L Potassium 4.3 (3.5-5.1) mmol/L Chloride 100 (98-107) mmol/L Carbon Dioxide 31 (21-32) mmol/L Anion Gap 8 (3-11) BUN 49 H (6-23) mg/dl Creatinine 3.21 H (0.6-1.4) mg/dl Est Cr Clr Drug Dosing Not Reportable eGFR 18.77 BUN/Creatinine Ratio 15.3 (10-20) Glucose 199 H (70-99(Fasting)) mg/dl Lactate 1.1 (0.4-2.0) mmol/L Calcium 8.9 (8.6-10.3) mg/dl Magnesium 2.3 (1.7-2.4) mg/dl Total Bilirubin 0.6 (0.2-1.0) mg/dl Direct Bilirubin 0.2 (0-0.2) mg/dl AST 11 L (13-39) U/L ALT 5 L (7-52) U/L Alkaline Phosphatase 55 (34-104) U/L Troponin I High Sens 15.7 (0-20) pg/ml Total Protein 7.3 (6.0-8.3) gm/dl Albumin 3.4 (3.4-5.0) gm/dl Procalcitonin 0.39 (0-0.5) ng/ml Urine Color Yellow Urine Appearance Turbid A (Clear) Urine pH 6.5 (4.5-7.5) Ur Specific [place] 1.010 (1.000-1.030) Urine Protein 1+ H (Negative) Urine Glucose (UA) Trace H (Negative) Urine Ketones Negative (Negative) Urine Blood 3+ H (Negative) Urine Nitrite Negative (Negative) Urine Bilirubin Negative (Negative) Urine Urobilinogen Negative (Negative) Ur Leukocyte Esterase 3+ H (Negative) Urine WBC (Auto) >50 H (0-5) /hpf Urine RBC (Auto) >20 H (0-2) /hpf U Hyaline Cast (Auto) 11-20 H (0-2) /lpf U Epithel Cells (Auto) 0-2 (0-2) /hpf Urine Bacteria (Auto) 3+ H (None Seen) Urine Yeast Present A (None Prsent) Urine Comment SARS-CoV-2 (PCR) NEGATIVE (Negative) Influenza Type A (PCR) Negative (Neg) Influenza Type B (PCR) Negative (Neg) RSV (RT-PCR) Negative (Neg) Administered Medications Discontinued Medications Sodium Chloride (Nss) 500 mls @ 999 mls/hr IV .Q31M ONE Stop: 08/08/25 17:26 Last Infusion: 08/08/25 18:17 Dose: Infused Documented By: Admin: 08/08/25 17:02 Dose: 999 mls/hr Documented By: CAESAR Piperacillin Sod/Tazobactam Sod (Zosyn) 4.5 gm in 100 mls @ 200 mls/hr IV NOW ONE; Protocol Stop: 08/08/25 18:11 Last Infusion: 08/08/25 18:51 Dose: Infused Documented By: Admin: 08/08/25 18:13 Dose: 200 mls/hr Documented By: GAYLA Sodium Chloride (Nss) 1,000 mls @ 999 mls/hr IV .Q1H1M ONE Stop: 08/08/25 19:57 Last Infusion: 08/08/25 20:50 Dose: Infused Documented By: Admin: 08/08/25 19:46 Dose: 999 mls/hr Documented By: EMMANUEL Imaging Data Attestation: I personally reviewed and interpreted this imaging study as follows: My Impression: CT of the brain was obtained in the emergency department. My interpretation is no intracranial hemorrhage or mass effect, final report below. Radiologist's Impression: Chest X-Ray 08/08/25 16:56 EXAM: X-ray chest one-view portable CLINICAL HISTORY: Sepsis PRIORS: 07/07/2025 TECHNIQUE: Semierect portable AP FINDINGS: The chest is well-expanded. Mild diffuse interstitial changes noted possibly more pronounced in the right upper lobe. No confluent opacification. Heart size is enlarged, unchanged no pneumothorax. Trachea is patent. Osseous structures demonstrate no acute abnormality. No radiopaque foreign body. IMPRESSION: Interstitial prominence, unchanged with possible mild heterogeneous opacification in the right upper lobe, appearing in the interval which could suggest pneumonia in the setting of sepsis. ACT 112: Positive. There are findings on this examination that require communication between the performing entity and the patient following Patient Test Result Information Act ([place] ACT 112) guidelines. Electronically signed by Yamile Mullins 08-08-2025 5:[address] 08/08/25 16:56 Technique: Axial computed tomography images were obtained of the brain without intravenous contrast. Findings: There is diffuse cerebral atrophy, within expected limits for the patient's age. Areas of decreased attenuation are seen within the periventricular white matter, likely representing chronic small vessel ischemic disease. There is no definite sign of acute or old infarction. No intracranial hemorrhage is evident. No definite mass lesion is seen on this noncontrast examination. There is no midline shift or other form of herniation. No hydrocephalus is seen. No fracture is identified. The orbits and the visualized paranasal sinuses appear unremarkable. The mastoid air cells appear clear. Impression: 1. Cerebral atrophy and chronic small vessel ischemic disease 2. Otherwise unremarkable noncontrast CT of the brain Electronically signed by Omid Funez 08-08-2025 6:12 PM Discharge Plan Visit Data Chief Complaint: Altered Mental Status Stated Complaint: AMS ED Provider: Hill Delacruz Discharge Problem: Urinary tract infection, Complicated urinary tract infection, Acute alteration in mental status, Pneumonia, Anemia, CESAR (acute kidney injury) Patient Disposition: Being Evaluated by Hospitalist Condition: Fair Forms Stand Alone Forms: [facility] Prescriptions Prescriptions: No Action insulin glargine [Lantus Solostar U-100 Insulin] 100 unit/mL (3 mL) insulin pen 5 unit SUBCUT HS amiodarone 200 mg tablet 200 mg PO QAM Eliquis 2.5 mg tablet 2.5 mg PO AMHS metoprolol succinate 50 mg tablet extended release 24 hr 50 mg PO AMHS furosemide [Lasix] 20 mg tablet 20 mg PO QAM ipratropium-albuterol 0.5 mg-3 mg(2.5 mg base)/3 mL Solution For Nebulization 3 ml INHALATION Q4 PRN (Reason: Shortness Of Breath Or Wheezing) acetaminophen [Tylenol] 325 mg Tablet 650 mg PO Q6H MDD 3g/24hrs PRN (Reason: Fever greater than 100/Pain) amitriptyline 10 mg Tablet 30 mg PO HS insulin lispro [Humalog U-100 Insulin] 100 unit/mL Solution 2 unit subcut TIDM insulin lispro [Humalog U-100 Insulin] 100 unit/mL Solution 1 sliding scale dose SUBCUT USEASDIRECTD Rx Instructions: Subcutaneously before meals and at bedtime for DM. 350-400 = 8units; 401-450 = 12units; 451-500 = 16units; 501-550 = 18units. Recheck in 1 hour, report result to MD/PLASMA CUTTING MACHINE OPERATOR. BSG<90, BSG>551 Glucagon Emergency Kit (human) 1 mg Recon Soln 1 mg IM DIRECTED PRN (Reason: Hypoglycemia) docusate sodium 100 mg Tablet 100 mg PO AMHS pregabalin 75 mg Capsule 75 mg PO AMHS atorvastatin 40 mg tablet 40 mg PO HS sennosides-docusate sodium [Senokot-S] 8.6-50 mg tablet 1 tab PO AMHS finasteride 5 mg tablet 5 mg PO QAM tamsulosin 0.4 mg capsule 0.4 mg PO HS pantoprazole 40 mg tablet,delayed release (DR/EC) 40 mg PO BID Qty: 60 0RF Referrals Referrals: Isai Garcia III, MD [Primary Care Provider] -
[2025-08-08 17:38] LABS: Hematocrit (blood only) 27.2 % (42.0-52.0); Hemoglobin 8.6 g/dl (14.0-18.0); Immature Granulocytes # (auto) 0.08 K/uL (0.01-0.20); Immature Granulocytes % (auto) 0.4 %; Mean Corpuscular Hemoglobin 28.1 pg (25.0-34.0); Mean Corpuscular Volume 88.9 fL (80.0-100.0); Platelet Count 191 K/uL (130-400); RDW Standard Deviation 45.9 fL (36.4-46.3); Red Blood Count 3.06 M/uL (4.70-6.10); White Blood Count 18.93 K/ul (4.8-10.8)
--- NOTE | 2025-08-08 17:50 | XRay Report ---
EXAM: X-ray chest one-view portable CLINICAL HISTORY: Sepsis PRIORS: 07/07/2025 TECHNIQUE: Semierect portable AP FINDINGS: The chest is well-expanded. Mild diffuse interstitial changes noted possibly more pronounced in the right upper lobe. No confluent opacification. Heart size is enlarged, unchanged no pneumothorax. Trachea is patent. Osseous structures demonstrate no acute abnormality. No radiopaque foreign body. IMPRESSION: Interstitial prominence, unchanged with possible mild heterogeneous opacification in the right upper lobe, appearing in the interval which could suggest pneumonia in the setting of sepsis. ACT 112: Positive. There are findings on this examination that require communication between the performing entity and the patient following Patient Test Result Information Act ([place] ACT 112) guidelines. Electronically signed by Yamile Mullins 08-08-2025 5:49 PM
[2025-08-08 17:55] LABS: Alanine Aminotransferase 5 U/L (7-52); Albumin Level 3.4 gm/dl (3.4-5.0); Alkaline Phosphatase 55 U/L (34-104); Anion Gap 8 (3-11); Bilirubin,Total 0.6 mg/dl (0.2-1.0); Blood Urea Nitrogen 49 mg/dl (6-23); Calcium 8.9 mg/dl (8.6-10.3); Carbon Dioxide 31 mmol/L (21-32); Chloride 100 mmol/L (98-107); Glucose 199 mg/dl (70-99(Fasting)); Magnesium 2.3 mg/dl (1.7-2.4); Potassium 4.3 mmol/L (3.5-5.1); Sodium 139 mmol/L (136-145); Total Protein 7.3 gm/dl (6.0-8.3)
[2025-08-08 18:03] LABS: Base Excess VBG 4.6 mEq/L; HCO3 VBG 32 mmol/L; Oxygen Saturation VBG 69.6 %; PCO2 VBG 56 mmHg (38-50); PO2 VBG 40 mmHg; pH VBG 7.36 (7.36-7.41)
[2025-08-08 18:06] LABS: INR 1.2 (0.9-1.1); Partial Thromboplastin Time 31 Seconds (21-31); Prothrombin Time 12.3 Seconds (9.0-12.0)
--- NOTE | 2025-08-08 18:12 | CT Scan Report ---
Technique: Axial computed tomography images were obtained of the brain without intravenous contrast. Findings: There is diffuse cerebral atrophy, within expected limits for the patient's age. Areas of decreased attenuation are seen within the periventricular white matter, likely representing chronic small vessel ischemic disease. There is no definite sign of acute or old infarction. No intracranial hemorrhage is evident. No definite mass lesion is seen on this noncontrast examination. There is no midline shift or other form of herniation. No hydrocephalus is seen. No fracture is identified. The orbits and the visualized paranasal sinuses appear unremarkable. The mastoid air cells appear clear. Impression: 1. Cerebral atrophy and chronic small vessel ischemic disease 2. Otherwise unremarkable noncontrast CT of the brain Electronically signed by Omid Funez 08-08-2025 6:12 PM
[2025-08-08] MEDS: PIPERACILLIN/TAZOBACTAM 4.5 GM/100 ML BAG IV ONE (18:13)
[2025-08-08 18:30] LABS: Influenza A virus by PCR Negative (Neg); Influenza B virus by PCR Negative (Neg); SARS CoV2 RNA(COVID-19) Ceph NEGATIVE (Negative)
[2025-08-08] MEDS: SODIUM CHLORIDE 0.9% 1,000 ML IV ONE (19:46)
[2025-08-08 20:20] LABS: Appearance Urine Turbid (Clear); Bacteria Urine Automated 3+ (None Seen); Epithelial Cell Urine Auto 0-2 /hpf (0-2); Glucose Urine UA Trace (Negative); RBC Urine Automated >20 /hpf (0-2); WBC Urine Automated >50 /hpf (0-5)
--- NOTE | 2025-08-08 20:36 | History & Physical Report ---
Date of Service August 08, 2025 Assessment & Plan (1) Encephalopathy: Plan: Assessment and plan below following discussion of case with ED provider and reviewing patient history/pertinent normal/abnormal diagnostic test results. Encephalopathy Multifactorial Sepsis, possible sources (HCAP, history of aspiration risk; recurrent complicated UTI secondary to chronic indwelling Hanna catheter, BPH, hydronephrosis) Neuropsychotropic medications contributory Patient mentating better after initial intervention at the ER. chronic diastolic heart failure (EF 50-55%, TTE 2024), patient on the dry side Chronic respiratory failure on home O2 as per records A-fib on Eliquis, patient NSR on the bradycardic side, decrease maintenance beta-arnel and amiodarone doses for now. DC amiodarone if with persistent bradycardia. valvular heart disease (severe , mild MR/TR) PAD hypertension, stable hyperlipidemia, on statin Rx DM2 insulin requiring, well-controlled as of recent hemoglobin A1c of 6.2 last March 2025 CRI, creatinine at baseline chronic anemia, hemoglobin at baseline severe hearing loss, assisted hearing device/headphone useful for patient communication history of right BKA history of MRSA past tobacco abuse Admit to medical telemetry CS, Zosyn Aspiration precautions, Hold for sedation/confusion parameters for patient neuropsychotropic medications Follow H&H, transfuse PRBC to maintain hemoglobin of at least 8, hold Eliquis until H&H stable Basal bolus insulin, ISS BG goal 1 10-1 40, carb count coverage DVT prophylaxis. SCDs while Eliquis on hold DNR as per patient's prior wishes. Patient requesting updates providers. Farhana Sebastian, contact #[phone]. Text document was generated using [employer] voice recognition software. It may contain grammatical or spelling errors. Kindly contact undersigned for clarification of any documentation item in question. History of Present Illness Chief Complaint: Hematuria, confusion as per records I do not know as per patient Primary Care Provider: Dr. James Maria History obtained from patient, family, and records. Limited history from patient secondary to severe hearing impairment. Medical history significant for chronic diastolic heart failure (EF 50-55%, TTE 2024), A-fib on Eliquis, valvular heart disease (severe , mild MR/TR), PAD, hypertension, hyperlipidemia, chronic respiratory failure on home O2, history of aspiration risk, recurrent UTIs secondary to chronic indwelling Hanna catheter, BPH, hydronephrosis, DM2 insulin requiring, CRI (baseline creatinine 3), chronic anemia (baseline hemoglobin of 8-9), severe hearing loss, history chronic LE venous ulcers, history of right BKA secondary to osteomyelitis, hoarding behavior as per records/hx of obsessional thoughts/acts as per records, history of MRSA, past tobacco abuse. Recent confinement last month for sepsis secondary to UTI (Proteus/procidentia/Enterococcus). Patient discharged back to [facility] for rehab. Patient with cough symptoms for about a week. Not sure about aspiration. Denies chest pain, SOB. Patient noted to have blood clots from Hanna catheter drainage today. Patient more confused than usual. Patient complaining of achy abdominal pain. No headache, no emesis. SBP 70s, transient hypoxemia in the 80s. Patient brought to ER for evaluation, Zosyn administered at the ER. Patient currently more awake and comfortable. Medical History as above Surgical History : Mastoidectomy, shoulder surgery, foot surgery, right BKA Family History : DM, lung cancer Personal/Social history : Past tobacco abuse, occasional EtOH intake, retired from [employer] employment Allergies Allergy/AdvReac Type Severity Reaction Status Date / Time lisinopril Allergy Severe Swelling Verified 06/21/25 13:07 of Face/Lips/Tongue hydrochlorothiazide Allergy Unknown Unknown - Unverified 06/21/25 13:07 On file w/ [facility] Home Medications Medication Instructions Recorded Confirmed Type insulin glargine 100 unit/mL (3 5 unit subcut HS 04/07/24 08/08/25 History mL) subcutaneous pen (Lantus Solostar U-100 Insulin) acetaminophen 325 mg tablet 650 mg PO Q6H PRN Fever greater 03/15/25 08/08/25 History (Tylenol) than 100/Pain amitriptyline 10 mg tablet 30 mg PO HS 03/15/25 08/08/25 History atorvastatin 40 mg tablet 40 mg PO HS 03/15/25 08/08/25 History docusate sodium 100 mg tablet 100 mg PO AMHS 03/15/25 08/08/25 History finasteride 5 mg tablet 5 mg PO QAM 03/15/25 08/08/25 History glucagon 1 mg solution for 1 mg IM DIRECTED PRN 03/15/25 08/08/25 History injection (Glucagon Emergency Kit) Hypoglycemia insulin lispro 100 unit/mL 1 sliding scale dose subcut 03/15/25 08/08/25 History subcutaneous solution (Humalog USEASDIRECTD U-100 Insulin) insulin lispro 100 unit/mL 2 unit subcut TIDM 03/15/25 08/08/25 History subcutaneous solution (Humalog U-100 Insulin) pregabalin 75 mg capsule 75 mg PO AMHS 03/15/25 08/08/25 History sennosides 8.6 mg-docusate sodium 1 tab PO AMHS constipation 03/15/25 08/08/25 History 50 mg tablet (Senokot-S) tamsulosin 0.4 mg capsule 0.4 mg PO HS 03/15/25 08/08/25 History pantoprazole 40 mg tablet,delayed 40 mg PO BID #60 tabs 03/20/25 08/08/25 Rx release amiodarone 200 mg tablet 200 mg PO QAM 08/08/25 08/08/25 History apixaban 2.5 mg tablet (Eliquis) 2.5 mg PO AMHS 08/08/25 08/08/25 History furosemide 20 mg tablet (Lasix) 20 mg PO QAM 08/08/25 08/08/25 History ipratropium 0.5 mg-albuterol 3 mg 3 ml inhalation Q4 PRN Shortness 08/08/25 08/08/25 History (2.5 mg base)/3 mL nebulization Of Breath Or Wheezing soln metoprolol succinate 50 mg 50 mg PO AMHS 08/08/25 08/08/25 History tablet,extended release 24 hr Past Med/Surg History Problem List (Updated 08/09/25 @ 00:52 by Background Daemon) Encephalopathy CESAR (acute kidney injury) (Acute) Anemia (Acute) Pneumonia (Acute) Acute alteration in mental status (Acute) Complicated urinary tract infection (Acute) Urinary tract infection (Acute) Sepsis Bacteremia Shock Acute and chronic respiratory failure with hypoxia (Acute) Septic shock (Acute) Hypotension UTI (urinary tract infection) due to urinary indwelling catheter (Chronic) Chronic retention of urine (Chronic) BPH w urinary obs/LUTS (Chronic) Acute heart failure with preserved ejection fraction Aortic stenosis Atrial fibrillation with rapid ventricular response (Acute) Acute CHF (Acute) Acute UTI (Acute) Acute respiratory failure with hypoxia (Acute) Acute kidney injury (CESAR) with acute tubular necrosis (ATN) Acute kidney injury superimposed on CKD S/P BKA (below knee amputation) unilateral Weakness (Acute) Symptomatic anemia (Acute) Catheter-associated urinary tract infection Diabetic foot ulcers Closed compression fracture of thoracic vertebra (Acute) Lymphedema (Chronic) Fall (Acute) Open wound of finger (Acute) Diabetic peripheral neuropathy associated with type 2 diabetes mellitus HTN (hypertension) Diabetic ulcer of right foot (Acute) Charcot foot due to diabetes mellitus Closed T12 fracture (Acute) Diabetic ulcer of left heel (Acute) Hyponatremia (Acute) Otitis externa of left ear Chronic indwelling Hanna catheter (Chronic) Otitis externa Ambulatory dysfunction Severe aortic stenosis Chronic heart failure with preserved ejection fraction (HFpEF) Ear drum perforation Severe hearing loss Open wound of abdomen (Acute) Homeless (Acute) Edema of both legs Hypertension Paroxysmal atrial fibrillation Diabetes mellitus, type II (Chronic) Dyslipidemia Medical History Pyelonephritis Hydronephrosis, bilateral Asymptomatic hypertensive urgency Bilateral lower leg cellulitis Blister of finger Maggot infestation CESAR (acute kidney injury) Surgical History History of ear surgery age 19, mastoid H/O shoulder surgery S/P foot surgery, left Family History Brother Diabetes Social History Smoking Status: Unknown if ever smoked Tobacco Type: Cigarettes Second Hand Exposure: No; Do You Dip or Chew Tobacco: No; Hx Alcohol Use: No Hx Substance Use: No Preferred Language: Hungarian Communication Ability: Impaired Communication Ability Comment: Hearing Loss. Visual Impairment: Limited Hearing Ability: Use of Hearing Aid [employer] Business [employer]st Required: No Beliefs That Will Affect Care: None marital status: Current Living Situation: Personal Care Facility Current Living Situation Comment: [facility] current occupational status: retired How many Children do You have: 3 Feels Safe at Home: Yes during the past year weight has: remained stable Dental Care, Regularly: No Physical Activity Frequency: Does not Exercise Assistive Devices: Wheelchair Review of Systems Review of Systems: Could not be reliably obtained secondary to impairment Physical Exam Physical Exam: GENERAL: Oriented to place, hard of hearing, no respiratory distress SKIN: Pallor, warm HEENT: pale palpebral conjunctivae, no ptosis, dry buccal mucosa, nasal cannula in place NECK : Supple, no tenderness CHEST : Decreased breath sounds, no tenderness HEART : Bradycardic, systolic murmur ABDOMEN: Some distention, minimal hypogastric tenderness EXTREMITIES : Right BKA stump, no other conspicuous deformities noted NEUROLOGIC : Coherent, no facial asymmetry, marked hearing impairment, gait and stance not assessed Results & Data Results & Data Vital Signs (Past 12 Hours) Vital Signs Temp Pulse Pulse Resp BP BP Pulse Ox 08/08/25 20:00 55 L 12 126/50 L 100 08/08/25 20:00 55 L 14 126/50 L 100 08/08/25 19:45 54 L 20 112/60 99 08/08/25 19:39 52 L 12 100 08/08/25 19:15 52 L 12 100/51 L 98 08/08/25 19:09 52 L 13 107/59 L 100 08/08/25 19:00 55 L 15 104/57 L 100 08/08/25 18:30 56 L 13 114/61 100 08/08/25 18:15 56 L 12 118/62 100 08/08/25 17:48 57 L 08/08/25 17:41 58 L 22 131/68 100 08/08/25 17:26 57 L 14 132/70 100 08/08/25 17:00 100 08/08/25 16:56 61 21 119/80 96 08/08/25 16:56 58 L 13 100 08/08/25 16:56 36.7 C 58 L 13 119/80 100 O2 Del Method O2 Flow Rate 08/08/25 20:00 Nasal Cannula 3 08/08/25 20:00 Nasal Cannula 3 08/08/25 19:45 Nasal Cannula 3 08/08/25 19:39 Nasal Cannula 3 08/08/25 19:15 Nasal Cannula 3 08/08/25 19:09 Nasal Cannula 3 08/08/25 19:00 Nasal Cannula 3 08/08/25 18:30 Nasal Cannula 4 08/08/25 18:15 Nasal Cannula 4 08/08/25 17:48 08/08/25 17:41 Nasal Cannula 4 08/08/25 17:26 Nasal Cannula 4 08/08/25 17:00 Nasal Cannula 4 08/08/25 16:56 Nasal Cannula 4 08/08/25 16:56 Nasal Cannula 4 08/08/25 16:56 Nasal Cannula 4 Laboratory Results Laboratory Results WBC 18.93 K/ul (4.8-10.8) H 08/08/25 17:14 RBC 3.06 M/uL (4.70-6.10) L 08/08/25 17:14 Hgb 8.6 g/dl (14.0-18.0) L 08/08/25 17:14 Hct 27.2 % (42.0-52.0) L 08/08/25 17:14 MCV 88.9 fL (80.0-100.0) 08/08/25 17:14 MCH 28.1 pg (25.0-34.0) 08/08/25 17:14 MCHC 31.6 g/dL (32.0-36.0) L 08/08/25 17:14 RDW Std Deviation 45.9 fL (36.4-46.3) 08/08/25 17:14 RDW Coeff of Scott 14.2 % (11.5-14.5) 08/08/25 17:14 Plt Count 191 K/uL (130-400) 08/08/25 17:14 MPV 10.7 fL (9.4-12.4) 08/08/25 17:14 Immature Gran % (Auto) 0.4 % 08/08/25 17:14 Neut % (Auto) 81.2 % 08/08/25 17:14 Lymph % (Auto) 11.1 % 08/08/25 17:14 [place] % (Auto) 6.6 % 08/08/25 17:14 Eos % (Auto) 0.4 % 08/08/25 17:14 Baso % (Auto) 0.3 % 08/08/25 17:14 Neut # (Auto) 15.35 K/uL (1.40-6.50) H 08/08/25 17:14 Lymph # (Auto) 2.11 K/uL (1.20-3.40) 08/08/25 17:14 [place] # (Auto) 1.25 K/uL (0.11-0.59) H 08/08/25 17:14 Eos # (Auto) 0.08 K/uL (0.00-0.50) 08/08/25 17:14 Baso # (Auto) 0.06 K/uL (0.00-0.20) 08/08/25 17:14 Immature Gran # (Auto) 0.08 K/uL (0.01-0.20) 08/08/25 17:14 PT 12.3 Seconds (9.0-12.0) H 08/08/25 17:14 INR 1.2 (0.9-1.1) H 08/08/25 17:14 APTT 31 Seconds (21-31) 08/08/25 17:14 PTT Ratio 1.1 08/08/25 17:14 VBG pH 7.36 (7.36-7.41) 08/08/25 17:33 VBG pCO2 56 mmHg (38-50) H 08/08/25 17:33 VBG pO2 40 mmHg 08/08/25 17:33 VBG HCO3 32 mmol/L 08/08/25 17:33 VBG O2 Saturation 69.6 % 08/08/25 17:33 VBG Base Excess 4.6 mEq/L 08/08/25 17:33 Sodium 139 mmol/L (136-145) 08/08/25 17:14 Potassium 4.3 mmol/L (3.5-5.1) 08/08/25 17:14 Chloride 100 mmol/L (98-107) 08/08/25 17:14 Carbon Dioxide 31 mmol/L (21-32) 08/08/25 17:14 Anion Gap 8 (3-11) 08/08/25 17:14 BUN 49 mg/dl (6-23) H 08/08/25 17:14 Creatinine 3.21 mg/dl (0.6-1.4) H 08/08/25 17:14 Est Cr Clr Drug Dosing Not Reportable 08/08/25 17:14 eGFR 18.77 08/08/25 17:14 BUN/Creatinine Ratio 15.3 (10-20) 08/08/25 17:14 Glucose 199 mg/dl (70-99(Fasting)) H 08/08/25 17:14 Lactate 1.1 mmol/L (0.4-2.0) 08/08/25 17:14 Calcium 8.9 mg/dl (8.6-10.3) 08/08/25 17:14 Magnesium 2.3 mg/dl (1.7-2.4) 08/08/25 17:14 Total Bilirubin 0.6 mg/dl (0.2-1.0) 08/08/25 17:14 Direct Bilirubin 0.2 mg/dl (0-0.2) 08/08/25 17:14 AST 11 U/L (13-39) L 08/08/25 17:14 ALT 5 U/L (7-52) L 08/08/25 17:14 Alkaline Phosphatase 55 U/L (34-104) 08/08/25 17:14 Troponin I High Sens 15.7 pg/ml (0-20) 08/08/25 17:14 Total Protein 7.3 gm/dl (6.0-8.3) 08/08/25 17:14 Albumin 3.4 gm/dl (3.4-5.0) 08/08/25 17:14 Procalcitonin 0.39 ng/ml (0-0.5) 08/08/25 17:14 Urine Color Yellow 08/08/25 20:00 Urine Appearance Turbid (Clear) A 08/08/25 20:00 Urine pH 6.5 (4.5-7.5) 08/08/25 20:00 Ur Specific [place] 1.010 (1.000-1.030) 08/08/25 20:00 Urine Protein 1+ (Negative) H 08/08/25 20:00 Urine Glucose (UA) Trace (Negative) H 08/08/25 20:00 Urine Ketones Negative (Negative) 08/08/25 20:00 Urine Blood 3+ (Negative) H 08/08/25 20:00 Urine Nitrite Negative (Negative) 08/08/25 20:00 Urine Bilirubin Negative (Negative) 08/08/25 20:00 Urine Urobilinogen Negative (Negative) 08/08/25 20:00 Ur Leukocyte Esterase 3+ (Negative) H 08/08/25 20:00 Urine WBC (Auto) >50 /hpf (0-5) H 08/08/25 20:00 Urine RBC (Auto) >20 /hpf (0-2) H 08/08/25 20:00 U Hyaline Cast (Auto) 11-20 /lpf (0-2) H 08/08/25 20:00 U Epithel Cells (Auto) 0-2 /hpf (0-2) 08/08/25 20:00 Urine Bacteria (Auto) 3+ (None Seen) H 08/08/25 20:00 Urine Yeast Present (None Prsent) A 08/08/25 20:00 Urine Comment 08/08/25 20:00 SARS-CoV-2 (PCR) NEGATIVE (Negative) 08/08/25 17:14 Influenza Type A (PCR) Negative (Neg) 08/08/25 17:14 Influenza Type B (PCR) Negative (Neg) 08/08/25 17:14 RSV (RT-PCR) Negative (Neg) 08/08/25 17:14 Impressions Chest X-Ray 08/08/25 16:56 EXAM: X-ray chest one-view portable CLINICAL HISTORY: Sepsis PRIORS: 07/07/2025 TECHNIQUE: Semierect portable AP FINDINGS: The chest is well-expanded. Mild diffuse interstitial changes noted possibly more pronounced in the right upper lobe. No confluent opacification. Heart size is enlarged, unchanged no pneumothorax. Trachea is patent. Osseous structures demonstrate no acute abnormality. No radiopaque foreign body. IMPRESSION: Interstitial prominence, unchanged with possible mild heterogeneous opacification in the right upper lobe, appearing in the interval which could suggest pneumonia in the setting of sepsis. ACT 112: Positive. There are findings on this examination that require communication between the performing entity and the patient following Patient Test Result Information Act ([place] ACT 112) guidelines. Electronically signed by Yamile Mullins 08-08-2025 5:[address] 08/08/25 16:56 Technique: Axial computed tomography images were obtained of the brain without intravenous contrast. Findings: There is diffuse cerebral atrophy, within expected limits for the patient's age. Areas of decreased attenuation are seen within the periventricular white matter, likely representing chronic small vessel ischemic disease. There is no definite sign of acute or old infarction. No intracranial hemorrhage is evident. No definite mass lesion is seen on this noncontrast examination. There is no midline shift or other form of herniation. No hydrocephalus is seen. No fracture is identified. The orbits and the visualized paranasal sinuses appear unremarkable. The mastoid air cells appear clear. Impression: 1. Cerebral atrophy and chronic small vessel ischemic disease 2. Otherwise unremarkable noncontrast CT of the brain Electronically signed by Omid Funez 08-08-2025 6:[address] chest: There are mild bibasilar areas of infiltrate and/or atelectasis. There is a compression fracture noted of the T6 vertebral body. This was not present on previous exam CT abdomen pelvis: Limited exam. There is thickening of the urinary bladder wall. There are surrounding inflammatory changes. Findings may be related to cystitis. See discussion above Diagnostic Findings EKG as per my interpretation :Rate 60, NSR, LAD, LAFB, 1 AVB, LVH, no ischemia
[2025-08-08] MEDS ORDERED: PROMETHAZINE 6.25 MG/50.25 ML BAG IV PRN (20:47)
[2025-08-08] MEDS ORDERED: ACETAMINOPHEN 325 MG TAB PO PRN (20:47)
[2025-08-08] MEDS ORDERED: GLUCOSE 40% GEL 15 GM TUBE PO PRN (21:00)
[2025-08-08] MEDS ORDERED: GLUCAGON FOR INJ 1 MG VIAL SQ PRN (21:00)
[2025-08-08] MEDS ORDERED: DEXTROSE 50% 50 ML SYRINGE IV PRN (21:00)
[2025-08-08] MEDS ORDERED: GLUCOSE 10 TAB/TUBE PO PRN (21:00)
[2025-08-08] MEDS ORDERED: CARBOHYDRATES FOR HYPOGLYCEMIA PO PRN (21:00)
[2025-08-08 22:21] LABS: Hematocrit (blood only) 23.9 % (42.0-52.0); Hemoglobin 7.5 g/dl (14.0-18.0)
--- NOTE | 2025-08-08 22:58 | CT Scan Report ---
Exam(s): CT CHEST Without Contrast EXAM: CT Chest Without Intravenous Contrast CLINICAL HISTORY: Reason for exam: cough. TECHNIQUE: Axial computed tomography images of the chest without intravenous contrast. CTDI is 22.88 mGy and DLP is 1400.27 mGy-cm. Automated exposure control was utilized for the study. A dose lowering technique was utilized adhering to the principles of ALARA. COMPARISON: 05/12/2024. FINDINGS: Motion artifact degrades image quality somewhat limiting the study. Lungs: There are mild bibasilar areas of infiltrate and/or atelectasis.. Pleural space: No significant effusion. No pneumothorax. Heart: The heart contains coronary artery calcifications.. Bones/joints: There are degenerative changes in the spine. Again noted is a compression fracture of the T12 vertebral body. There is a compression fracture noted of the T6 vertebral body. Soft tissues: Unremarkable. Vasculature: There are atherosclerotic changes.. No thoracic aortic aneurysm. Lymph nodes: There are small mediastinal lymph nodes.. IMPRESSION: There are mild bibasilar areas of infiltrate and/or atelectasis. There is a compression fracture noted of the T6 vertebral body. This was not present on previous exam Electronically signed by: Ed Keita MD 08/08/25 22:56 PM
--- NOTE | 2025-08-08 23:07 | CT Scan Report ---
Exam(s): CT ABDOMEN + PELVIS Without Contrast EXAM: CT Abdomen and Pelvis Without Intravenous Contrast CLINICAL HISTORY: Reason for exam: hematuria, pain. TECHNIQUE: Axial computed tomography images of the abdomen and pelvis without intravenous contrast. CTDI is 22.88 mGy and DLP is 1400.27 mGy-cm. Automated exposure control was utilized for the study. A dose lowering technique was utilized adhering to the principles of ALARA. COMPARISON: 07/03/2025. FINDINGS: Exam is limited due to lack of contrast. It is further limited due to artifact. ABDOMEN: Liver: The liver is enlarged. Gallbladder and bile ducts: No calcified stones. No ductal dilation. Pancreas: The visualized portions of the pancreas, on this noncontrast study, are grossly unremarkable.. Spleen: No splenomegaly. Adrenals: No mass. Kidneys and ureters: No obstructing stones. No hydronephrosis. Stomach and bowel: The stomach is decompressed. There is air and stool noted in the colon. There is a large amount of stool in the rectum. There are diverticula present on the colon. No significant inflammatory changes are seen. PELVIS: Appendix: Unremarkable CT scan appearance noted the appendix.. Bladder: There is a Hanna catheter noted within the urinary bladder. There is thickening of the urinary bladder wall. There are inflammatory changes surrounding the bladder.. Reproductive: Unremarkable as visualized. ABDOMEN and PELVIS: Intraperitoneal space: No free air. No significant fluid collection. Bones/joints: There are degenerative changes in the spine. Again noted, there are compression fractures noted at T12 and L1.. Soft tissues: There are bilateral inguinal hernias containing fat. There is an umbilical heart containing fat.. Vasculature: There are atherosclerotic changes. No abdominal aortic aneurysm. Lymph nodes: No enlarged lymph nodes. IMPRESSION: Limited exam. There is thickening of the urinary bladder wall. There are surrounding inflammatory changes. Findings may be related to cystitis. See discussion above Electronically signed by: Ed Keita MD 08/08/25 23:06 PM
[2025-08-08] MEDS ORDERED: SODIUM CHLORIDE 0.9% 100 ML IV PRN (23:25)
[2025-08-09] MEDS: DOCUSATE SODIUM 100 MG CAP PO SCH (00:17)
[2025-08-09] MEDS: DOCUSATE SODIUM/SENNA 50/8.6MG TAB PO SCH (00:17)
[2025-08-09 00:51] LABS: Base Excess VBG 4.4 mEq/L; HCO3 VBG 31 mmol/L; Oxygen Saturation VBG 93.5 %; PCO2 VBG 52 mmHg (38-50); PO2 VBG 65 mmHg; pH VBG 7.38 (7.36-7.41)
[2025-08-09] MEDS ORDERED: GLUCOSE 40% GEL 15 GM TUBE PO PRN (00:57)
[2025-08-09] MEDS ORDERED: GLUCAGON FOR INJ 1 MG VIAL SQ PRN (00:57)
[2025-08-09] MEDS ORDERED: CARBOHYDRATES FOR HYPOGLYCEMIA PO PRN (00:57)
[2025-08-09] MEDS ORDERED: GLUCOSE 10 TAB/TUBE PO PRN (00:57)
[2025-08-09] MEDS ORDERED: DEXTROSE 50% 50 ML SYRINGE IV PRN (00:57)
[2025-08-09] MEDS: AMITRIPTYLINE HCL 10 MG TAB PO SCH (01:45)
[2025-08-09] MEDS: ATORVASTATIN 40 MG TAB PO SCH (01:45)
[2025-08-09] MEDS: TAMSULOSIN HCL 0.4 MG CAP PO SCH (01:45)
[2025-08-09] MEDS: METOPROLOL SUCC 25MG EXT REL TAB PO SCH (01:46)
[2025-08-09] MEDS: PREGABALIN 75 MG CAP PO SCH (01:58)
[2025-08-09] MEDS: INSULIN ASPART PER UNIT CHARGE SC SCH (02:09)
[2025-08-09] MEDS: PIPERACILLIN/TAZOBACTAM 4.5 GM/100 ML BAG IV SCH (06:20)
[2025-08-09] MEDS: FINASTERIDE 5 MG TAB PO SCH (07:49)
[2025-08-09] MEDS: AMIODARONE 200 MG TAB PO SCH (07:54)
--- NOTE | 2025-08-09 07:56 | Hospitalist Progress Note ---
Date of Service August 09, 2025 Assessment & Plan (1) Encephalopathy: Plan: Per admitting provider w/ addendum Encephalopathy Multifactorial Sepsis, possible sources (HCAP, history of aspiration risk; recurrent complicated UTI secondary to chronic indwelling Hanna catheter, BPH, hydronephrosis) Neuropsychotropic medications contributory Patient mentating better after initial intervention at the ER. Admitted to medical telemetry Follow blood cultx, urine cultx Recently hospitalized for UTI, bacteremia, hx of Hanna Currently on Zosyn, will cont. Aspiration precautions, Hold for sedation/confusion parameters for patient neuropsychotropic medications 08/09 Pt is awake, able to say that he is in the hospital, very hard of hearing. Not able to provide much history. Chronic conditions: chronic diastolic heart failure (EF 50-55%, TTE 2024), patient on the dry side Chronic respiratory failure on home O2 as per records A-fib on Eliquis, patient NSR on the bradycardic side, decrease maintenance beta-arnel and amiodarone doses for now. DC amiodarone if with persistent bradycardia. valvular heart disease (severe , mild MR/TR) PAD hypertension, stable hyperlipidemia, on statin Rx DM2 insulin requiring, well-controlled as of recent hemoglobin A1c of 6.2 last March 2025. Basal bolus insulin, ISS BG goal 110-140, carb count coverage CRI, creatinine at baseline chronic anemia, hemoglobin at baseline. Follow H&H, transfuse PRBC to maintain hemoglobin of at least 8, Hgb 7.9 this AM. resume Eliquis, cont. to monitor H&H severe hearing loss, assisted hearing device/headphone useful for patient communication history of right BKA history of MRSA past tobacco abuse DVT prophylaxis. SCDs , resume Eliquis DNR as per patient's prior wishes. Patient' - Ms. Farhana Sebastian, contact #[phone]. Admission and Anticipated Discharge Date Admission Date: August 08, 2025 Subjective Pt seen in follow up, hospitalized last month w/ UTI and bacteremia, hx of Hanna Now presents w/AMS, sepsis. Blood cultx, Ucultx pending, started on zosyn yesterday on admission Currently sitting up in bed in NAD He is awake, appears weak, able to say that he is in the hospital. Per RN he was able to answer orientation questions to her earlier. Pt is very hard of hearing. Not able to provide much of any history. Denies any chest pain, shortness of breath, or abd. pain. Review of Systems Review of Systems: All systems reviewed & are unremarkable except as noted in Subjective Physical Exam Physical Exam: GENERAL: Oriented to place, hard of hearing, no respiratory distress HEENT: NC/AT. nasal cannula in place NECK : Supple CHEST : Decreased breath sounds, no tenderness HEART : Bradycardic, systolic murmur ABDOMEN: Some distention, soft, nontender EXTREMITIES : Right BKA stump NEUROLOGIC : Awake, no facial asymmetry, marked hearing impairment, only able to answer some questions appropriately, moves extremities SKIN: Pallor, warm Results & Data Results & Data Vital Signs (Past 12 Hours) Vital Signs Temp Pulse Pulse Pulse Resp BP BP 08/09/25 07:02 44 L 18 106/51 L 08/09/25 07:00 45 L 08/09/25 04:14 36.4 C L 48 L 18 122/58 L 08/09/25 03:38 36.3 C L 46 L 18 112/64 08/09/25 02:38 36.5 C 49 L 18 123/57 L 08/09/25 02:08 36.5 C 51 L 20 125/57 L 08/09/25 01:53 36.4 C L 51 L 18 151/53 H 08/09/25 01:37 36.7 C 47 L 20 114/60 08/09/25 01:00 50 L 08/09/25 01:00 08/09/25 01:00 36.6 C 51 L 20 08/09/25 00:13 50 L 14 119/84 08/08/25 23:30 50 L 15 126/63 08/08/25 23:01 49 L 14 126/56 L 08/08/25 22:07 49 L 08/08/25 22:00 49 L 16 110/55 L 08/08/25 21:00 52 L 14 129/61 08/08/25 20:06 55 L 12 130/69 08/08/25 20:00 55 L 12 126/50 L 08/08/25 20:00 55 L 14 BP Pulse Ox O2 Del Method O2 Flow Rate 08/09/25 07:02 96 Nasal Cannula 2 08/09/25 07:00 08/09/25 04:14 08/09/25 03:38 100 08/09/25 02:38 99 08/09/25 02:08 100 08/09/25 01:53 96 08/09/25 01:37 99 08/09/25 01:00 08/09/25 01:00 Nasal Cannula 2 08/09/25 01:00 120/66 98 Nasal Cannula 2 08/09/25 00:13 99 Nasal Cannula 2 08/08/25 23:30 100 Nasal Cannula 3 08/08/25 23:01 100 Nasal Cannula 3 08/08/25 22:07 08/08/25 22:00 100 Nasal Cannula 3 08/08/25 21:00 100 Nasal Cannula 3 08/08/25 20:06 100 Nasal Cannula 3 08/08/25 20:00 100 Nasal Cannula 3 08/08/25 20:00 126/50 L 100 Nasal Cannula 3 Laboratory Results 08/09/25 08/09/25 08/09/25 Range/Units 07:52 02:00 00:17 WBC (4.8-10.8) K/ul RBC (4.70-6.10) M/uL Hgb (14.0-18.0) g/dl Hct (42.0-52.0) % MCV (80.0-100.0) fL MCH (25.0-34.0) pg MCHC (32.0-36.0) g/dL RDW Std Deviation (36.4-46.3) fL RDW Coeff of Scott (11.5-14.5) % Plt Count (130-400) K/uL MPV (9.4-12.4) fL Immature Gran % (Auto) % Neut % (Auto) % Lymph % (Auto) % [place] % (Auto) % Eos % (Auto) % Baso % (Auto) % Neut # (Auto) (1.40-6.50) K/uL Lymph # (Auto) (1.20-3.40) K/uL Milam # (Auto) (0.11-0.59) K/uL Eos # (Auto) (0.00-0.50) K/uL Baso # (Auto) (0.00-0.20) K/uL Immature Gran # (Auto) (0.01-0.20) K/uL PT (9.0-12.0) Seconds INR (0.9-1.1) APTT (21-31) Seconds PTT Ratio VBG pH 7.38 (7.36-7.41) VBG pCO2 52 H (38-50) mmHg VBG pO2 65 mmHg VBG HCO3 31 mmol/L VBG O2 Saturation 93.5 % VBG Base Excess 4.4 mEq/L Sodium (136-145) mmol/L Potassium (3.5-5.1) mmol/L Chloride (98-107) mmol/L Carbon Dioxide (21-32) mmol/L Anion Gap (3-11) BUN (6-23) mg/dl Creatinine (0.6-1.4) mg/dl Est Cr Clr Drug Dosing eGFR BUN/Creatinine Ratio (10-20) Glucose (70-99(Fasting)) mg/dl POC Glucose 113 H 168 H (70-99) mg/dl Lactate (0.4-2.0) mmol/L Calcium (8.6-10.3) mg/dl Magnesium (1.7-2.4) mg/dl Total Bilirubin (0.2-1.0) mg/dl Direct Bilirubin (0-0.2) mg/dl AST (13-39) U/L ALT (7-52) U/L Alkaline Phosphatase (34-104) U/L Troponin I High Sens (0-20) pg/ml Total Protein (6.0-8.3) gm/dl Albumin (3.4-5.0) gm/dl Procalcitonin (0-0.5) ng/ml Urine Color Urine Appearance (Clear) Urine pH (4.5-7.5) Ur Specific [place] (1.000-1.030) Urine Protein (Negative) Urine Glucose (UA) (Negative) Urine Ketones (Negative) Urine Blood (Negative) Urine Nitrite (Negative) Urine Bilirubin (Negative) Urine Urobilinogen (Negative) Ur Leukocyte Esterase (Negative) Urine WBC (Auto) (0-5) /hpf Urine RBC (Auto) (0-2) /hpf U Hyaline Cast (Auto) (0-2) /lpf U Epithel Cells (Auto) (0-2) /hpf Urine Bacteria (Auto) (None Seen) Urine Yeast (None Prsent) Urine Comment Nasal Screen MRSA (PCR) (Negative) SARS-CoV-2 (PCR) (Negative) Influenza Type A (PCR) (Neg) Influenza Type B (PCR) (Neg) RSV (RT-PCR) (Neg) Blood Type Antibody Screen Crossmatch 08/08/25 08/08/25 08/08/25 Range/Units 21:34 20:38 20:00 WBC (4.8-10.8) K/ul RBC (4.70-6.10) M/uL Hgb 7.5 L (14.0-18.0) g/dl Hct 23.9 L (42.0-52.0) % MCV (80.0-100.0) fL MCH (25.0-34.0) pg MCHC (32.0-36.0) g/dL RDW Std Deviation (36.4-46.3) fL RDW Coeff of Scott (11.5-14.5) % Plt Count (130-400) K/uL MPV (9.4-12.4) fL Immature Gran % (Auto) % Neut % (Auto) % Lymph % (Auto) % [place] % (Auto) % Eos % (Auto) % Baso % (Auto) % Neut # (Auto) (1.40-6.50) K/uL Lymph # (Auto) (1.20-3.40) K/uL Milam # (Auto) (0.11-0.59) K/uL Eos # (Auto) (0.00-0.50) K/uL Baso # (Auto) (0.00-0.20) K/uL Immature Gran # (Auto) (0.01-0.20) K/uL PT (9.0-12.0) Seconds INR (0.9-1.1) APTT (21-31) Seconds PTT Ratio VBG pH (7.36-7.41) VBG pCO2 (38-50) mmHg VBG pO2 mmHg VBG HCO3 mmol/L VBG O2 Saturation % VBG Base Excess mEq/L Sodium (136-145) mmol/L Potassium (3.5-5.1) mmol/L Chloride (98-107) mmol/L Carbon Dioxide (21-32) mmol/L Anion Gap (3-11) BUN (6-23) mg/dl Creatinine (0.6-1.4) mg/dl Est Cr Clr Drug Dosing eGFR BUN/Creatinine Ratio (10-20) Glucose (70-99(Fasting)) mg/dl POC Glucose (70-99) mg/dl Lactate (0.4-2.0) mmol/L Calcium (8.6-10.3) mg/dl Magnesium (1.7-2.4) mg/dl Total Bilirubin (0.2-1.0) mg/dl Direct Bilirubin (0-0.2) mg/dl AST (13-39) U/L ALT (7-52) U/L Alkaline Phosphatase (34-104) U/L Troponin I High Sens (0-20) pg/ml Total Protein (6.0-8.3) gm/dl Albumin (3.4-5.0) gm/dl Procalcitonin (0-0.5) ng/ml Urine Color Yellow Urine Appearance Turbid A (Clear) Urine pH 6.5 (4.5-7.5) Ur Specific [place] 1.010 (1.000-1.030) Urine Protein 1+ H (Negative) Urine Glucose (UA) Trace H (Negative) Urine Ketones Negative (Negative) Urine Blood 3+ H (Negative) Urine Nitrite Negative (Negative) Urine Bilirubin Negative (Negative) Urine Urobilinogen Negative (Negative) Ur Leukocyte Esterase 3+ H (Negative) Urine WBC (Auto) >50 H (0-5) /hpf Urine RBC (Auto) >20 H (0-2) /hpf U Hyaline Cast (Auto) 11-20 H (0-2) /lpf U Epithel Cells (Auto) 0-2 (0-2) /hpf Urine Bacteria (Auto) 3+ H (None Seen) Urine Yeast Present A (None Prsent) Urine Comment Nasal Screen MRSA (PCR) Negative (Negative) SARS-CoV-2 (PCR) (Negative) Influenza Type A (PCR) (Neg) Influenza Type B (PCR) (Neg) RSV (RT-PCR) (Neg) Blood Type O Positive Antibody Screen NEGATIVE Crossmatch See Detail 08/08/25 08/08/25 Range/Units 17:33 17:14 WBC 18.93 H (4.8-10.8) K/ul RBC 3.06 L (4.70-6.10) M/uL Hgb 8.6 L (14.0-18.0) g/dl Hct 27.2 L (42.0-52.0) % MCV 88.9 (80.0-100.0) fL MCH 28.1 (25.0-34.0) pg MCHC 31.6 L (32.0-36.0) g/dL RDW Std Deviation 45.9 (36.4-46.3) fL RDW Coeff of Scott 14.2 (11.5-14.5) % Plt Count 191 (130-400) K/uL MPV 10.7 (9.4-12.4) fL Immature Gran % (Auto) 0.4 % Neut % (Auto) 81.2 % Lymph % (Auto) 11.1 % Milam % (Auto) 6.6 % Eos % (Auto) 0.4 % Baso % (Auto) 0.3 % Neut # (Auto) 15.35 H (1.40-6.50) K/uL Lymph # (Auto) 2.11 (1.20-3.40) K/uL [place]am # (Auto) 1.25 H (0.11-0.59) K/uL Eos # (Auto) 0.08 (0.00-0.50) K/uL Baso # (Auto) 0.06 (0.00-0.20) K/uL Immature Gran # (Auto) 0.08 (0.01-0.20) K/uL PT 12.3 H (9.0-12.0) Seconds INR 1.2 H (0.9-1.1) APTT 31 (21-31) Seconds PTT Ratio 1.1 VBG pH 7.36 (7.36-7.41) VBG pCO2 56 H (38-50) mmHg VBG pO2 40 mmHg VBG HCO3 32 mmol/L VBG O2 Saturation 69.6 % VBG Base Excess 4.6 mEq/L Sodium 139 (136-145) mmol/L Potassium 4.3 (3.5-5.1) mmol/L Chloride 100 (98-107) mmol/L Carbon Dioxide 31 (21-32) mmol/L Anion Gap 8 (3-11) BUN 49 H (6-23) mg/dl Creatinine 3.21 H (0.6-1.4) mg/dl Est Cr Clr Drug Dosing Not Reportable eGFR 18.77 BUN/Creatinine Ratio 15.3 (10-20) Glucose 199 H (70-99(Fasting)) mg/dl POC Glucose (70-99) mg/dl Lactate 1.1 (0.4-2.0) mmol/L Calcium 8.9 (8.6-10.3) mg/dl Magnesium 2.3 (1.7-2.4) mg/dl Total Bilirubin 0.6 (0.2-1.0) mg/dl Direct Bilirubin 0.2 (0-0.2) mg/dl AST 11 L (13-39) U/L ALT 5 L (7-52) U/L Alkaline Phosphatase 55 (34-104) U/L Troponin I High Sens 15.7 (0-20) pg/ml Total Protein 7.3 (6.0-8.3) gm/dl Albumin 3.4 (3.4-5.0) gm/dl Procalcitonin 0.39 (0-0.5) ng/ml Urine Color Urine Appearance (Clear) Urine pH (4.5-7.5) Ur Specific [place] (1.000-1.030) Urine Protein (Negative) Urine Glucose (UA) (Negative) Urine Ketones (Negative) Urine Blood (Negative) Urine Nitrite (Negative) Urine Bilirubin (Negative) Urine Urobilinogen (Negative) Ur Leukocyte Esterase (Negative) Urine WBC (Auto) (0-5) /hpf Urine RBC (Auto) (0-2) /hpf U Hyaline Cast (Auto) (0-2) /lpf U Epithel Cells (Auto) (0-2) /hpf Urine Bacteria (Auto) (None Seen) Urine Yeast (None Prsent) Urine Comment Nasal Screen MRSA (PCR) (Negative) SARS-CoV-2 (PCR) NEGATIVE (Negative) Influenza Type A (PCR) Negative (Neg) Influenza Type B (PCR) Negative (Neg) RSV (RT-PCR) Negative (Neg) Blood Type Antibody Screen Crossmatch Medications Administered Current Inpatient Medications Acetaminophen (Acetaminophen 325 Mg Tab) 650 mg PO QID PRN PRN Reason: pain/fever Stop: 09/07/25 20:46 Amiodarone HCl (Amiodarone 200 Mg Tab) 100 mg PO QAM [facility] Stop: 09/08/25 08:59 Last Admin: 08/09/25 07:54 Dose: Not Given Amitriptyline HCl (Amitriptyline Hcl 10 Mg Tab) 30 mg PO HS [facility] Stop: 09/07/25 20:59 Last Admin: 08/09/25 01:45 Dose: 30 mg Atorvastatin Calcium (Atorvastatin 40 Mg Tab) 40 mg PO HS [facility] Stop: 09/07/25 20:59 Last Admin: 08/09/25 01:45 Dose: 40 mg Dextrose (Dextrose 50% 50 Ml Syringe) 25 - 50 ml IV UD PRN; Protocol PRN Reason: Hypoglycemia Protocol Stop: 09/07/25 20:59 Dextrose (Dextrose 50% 50 Ml Syringe) 25 - 50 ml IV UD PRN; Protocol PRN Reason: Hypoglycemia Protocol Stop: 09/08/25 00:56 Docusate Sodium (Docusate Sodium 100 Mg Cap) 100 mg PO AMHS [facility] Stop: 09/07/25 20:59 Last Admin: 08/09/25 07:51 Dose: 100 mg Finasteride (Finasteride 5 Mg Tab) 5 mg PO QAM [facility] Stop: 09/08/25 08:59 Last Admin: 08/09/25 07:49 Dose: 5 mg Glucagon (Glucagon For Inj 1 Mg Vial) 1 mg SQ UD PRN; Protocol PRN Reason: Hypoglycemia Protocol Stop: 09/07/25 20:59 Glucagon (Glucagon For Inj 1 Mg Vial) 1 mg SQ UD PRN; Protocol PRN Reason: Hypoglycemia Protocol Stop: 09/08/25 00:56 Glucose (Glucose 40% Gel 15 Gm Tube) 15 - 30 gm PO UD PRN; Protocol PRN Reason: Hypoglycemia Protocol Stop: 09/07/25 20:59 Glucose (Glucose 10 Tab/Tube) 4 - 8 tab PO UD PRN; Protocol PRN Reason: Hypoglycemia Protocol Stop: 09/07/25 20:59 Glucose (Glucose 40% Gel 15 Gm Tube) 15 - 30 gm PO UD PRN; Protocol PRN Reason: Hypoglycemia Protocol Stop: 09/08/25 00:56 Glucose (Glucose 10 Tab/Tube) 4 - 8 tab PO UD PRN; Protocol PRN Reason: Hypoglycemia Protocol Stop: 09/08/25 00:56 Promethazine HCl (Phenergan) 6.25 mg in 50.25 mls @ 201 mls/hr IV Q6H PRN PRN Reason: Nausea And Vomiting Stop: 09/07/25 20:46 Piperacillin Sod/Tazobactam Sod (Zosyn) 4.5 gm in 100 mls @ 25 mls/hr IV Q12H [facility]; Protocol Stop: 08/16/25 06:29 Last Admin: 08/09/25 06:20 Dose: 25 mls/hr Insulin Aspart (Insulin Aspart Per Unit Charge) 0 units SC ACHS [facility] Stop: 09/08/25 00:56 Last Admin: 08/09/25 02:09 Dose: 2 units Insulin Glargine (Lantus Per Unit Charge) 5 units SC DAILY [facility] Stop: 09/08/25 08:59 Metoprolol Succinate (Metoprolol Succ 25mg Ext Rel Tab) 25 mg PO BID [facility] Stop: 09/07/25 20:59 Last Admin: 08/09/25 07:49 Dose: Not Given Miscellaneous (Carbohydrates For Hypoglycemia ) 15 - 30 gm PO UD PRN PRN Reason: Hypoglycemia Treatment Stop: 09/07/25 20:59 Miscellaneous (Carbohydrates For Hypoglycemia ) 15 - 30 gm PO UD PRN PRN Reason: Hypoglycemia Protocol Stop: 09/08/25 00:56 Oxycodone HCl (Oxycodone Hcl Ir 5 Mg Tab (Immediate Release)) 5 mg PO Q4H PRN PRN Reason: Pain Stop: 08/22/25 20:46 Pantoprazole Sodium (Pantoprazole 40 Mg Tab) 40 mg PO BID [facility] Stop: 09/07/25 20:59 Last Admin: 08/09/25 07:49 Dose: 40 mg Pregabalin (Pregabalin 75 Mg Cap) 75 mg PO AMHS [facility] Stop: 09/07/25 20:59 Last Admin: 08/09/25 07:48 Dose: 75 mg Senna/Docusate Sodium (Docusate Sodium/Senna 50/8.6mg Tab) 1 tab PO AMHS [facility] Stop: 09/07/25 20:59 Last Admin: 08/09/25 07:51 Dose: 1 tab Tamsulosin HCl (Tamsulosin Hcl 0.4 Mg Cap) 0.4 mg PO HS [facility] Stop: 09/07/25 20:59 Last Admin: 08/09/25 01:45 Dose: 0.4 mg
[2025-08-09] MEDS ORDERED: PHA DELIRIUM CONSULT PRN (08:04)
[2025-08-09 08:16] LABS: Hematocrit (blood only) 24.5 % (42.0-52.0); Hemoglobin 7.9 g/dl (14.0-18.0); Immature Granulocytes # (auto) 0.04 K/uL (0.01-0.20); Immature Granulocytes % (auto) 0.3 %; Mean Corpuscular Hemoglobin 28.7 pg (25.0-34.0); Mean Corpuscular Volume 89.1 fL (80.0-100.0); Platelet Count 151 K/uL (130-400); RDW Standard Deviation 45.7 fL (36.4-46.3); Red Blood Count 2.75 M/uL (4.70-6.10); White Blood Count 12.14 K/ul (4.8-10.8)
[2025-08-09 08:31] LABS: Anion Gap 7.0 (3-11); Blood Urea Nitrogen 47.0 mg/dl (6-23); Calcium 8.5 mg/dl (8.6-10.3); Carbon Dioxide 30.0 mmol/L (21-32); Chloride 104.0 mmol/L (98-107); Creatinine Clr Calc Pharmacy 19.2 ml/min; Glucose 101.0 mg/dl (70-99(Fasting)); Potassium 3.9 mmol/L (3.5-5.1); Sodium 141.0 mmol/L (136-145)
[2025-08-09 08:40] LABS: Magnesium 2.1 mg/dl (1.7-2.4)
[2025-08-09 08:43] LABS: Polychromasia 1+
--- NOTE | 2025-08-09 09:22 | Electrocardiogram Report ---
Test Reason : Blood Pressure : */* mmHG Vent. Rate : 60 BPM Atrial Rate : 60 BPM P-R Int : 220 ms QRS Dur : 134 ms QT Int : 476 ms P-R-T Axes : 85 -61 60 degrees QTcB Int : 476 ms Sinus rhythm with 1st degree A-V block Right bundle branch block Left anterior fascicular block Bifascicular block Minimal voltage criteria for LVH, may be normal variant ( R in aVL ) Abnormal ECG When compared with ECG of 05-Jul-2025 10:11, Significant changes have occurred Confirmed by Hill Echevarria ([id number] on 08/09/2025 9:22:22 AM Referred By: REFERRED SELF Confirmed By: Hill Echevarria
[2025-08-09] MEDS: LANTUS PER UNIT CHARGE SC SCH (09:45)
[2025-08-09] MEDS: POLYETHYLENE (MIRALAX) 17 GM PACK PO SCH (09:50)
[2025-08-09] MEDS: APIXABAN 2.5 MG TAB PO SCH (20:06)
[2025-08-10 07:26] LABS: Hematocrit (blood only) 26.9 % (42.0-52.0); Hemoglobin 8.5 g/dl (14.0-18.0); Mean Corpuscular Hemoglobin 28.1 pg (25.0-34.0); Mean Corpuscular Volume 89.1 fL (80.0-100.0); Platelet Count 169 K/uL (130-400); RDW Standard Deviation 45.6 fL (36.4-46.3); Red Blood Count 3.02 M/uL (4.70-6.10); White Blood Count 8.85 K/ul (4.8-10.8)
[2025-08-10 07:56] LABS: Anion Gap 6.0 (3-11); Blood Urea Nitrogen 46.0 mg/dl (6-23); Calcium 8.7 mg/dl (8.6-10.3); Carbon Dioxide 31.0 mmol/L (21-32); Chloride 104.0 mmol/L (98-107); Creatinine Clr Calc Pharmacy 19.3 ml/min; Glucose 121.0 mg/dl (70-99(Fasting)); Magnesium 2.1 mg/dl (1.7-2.4); Potassium 4.0 mmol/L (3.5-5.1); Sodium 141.0 mmol/L (136-145)
--- NOTE | 2025-08-10 08:12 | Hospitalist Progress Note ---
Date of Service August 10, 2025 Assessment & Plan (1) Encephalopathy: Plan: Per admitting provider w/ addendum Encephalopathy Multifactorial Sepsis, possible sources (HCAP, history of aspiration risk; recurrent complicated UTI secondary to chronic indwelling Hanna catheter, BPH, hydronephrosis) Neuropsychotropic medications contributory Patient mentating better after initial intervention at the ER. Admitted to medical telemetry Follow blood cultx, urine cultx Ucultx posit for Gram negat. bacilli Recently hospitalized for UTI, bacteremia, hx of Hanna Currently on Zosyn, will cont. Aspiration precautions, Hold for sedation/confusion parameters for patient neuropsychotropic medications 10 Pt is awake, able to say that he is in the hospital, very hard of hearing. Not able to provide much history. 08/10 WBC 18k on admission now down to 8k - normalized Pt awake and communicates better when things written down, as he is very hard of hearing. Chronic conditions: chronic diastolic heart failure (EF 50-55%, TTE 2024), patient on the dry side Chronic respiratory failure on home O2 as per records A-fib on Eliquis, patient NSR on the bradycardic side, decreased maintenance beta-arnel and amiodarone doses for now. DC amiodarone if with persistent bradycardia. valvular heart disease (severe , mild MR/TR) PAD hypertension, stable hyperlipidemia, on statin Rx DM2 insulin requiring, well-controlled as of recent hemoglobin A1c of 6.2 last March 2025. Basal bolus insulin, ISS BG goal 110-140, carb count coverage CRI, creatinine at baseline chronic anemia, hemoglobin at baseline. Follow H&H, transfuse PRBC to maintain hemoglobin of at least 8, Hgb 7.9 yesterday, 8.5 this AM. cont. Eliquis, cont. to monitor H&H severe hearing loss, assisted hearing device/headphone useful for patient communication history of right BKA history of MRSA past tobacco abuse DVT prophylaxis. SCDs , Eliquis DNR as per patient's prior wishes. Patient' - Ms. Farhana Sebastian, contact #[phone]. Admission and Anticipated Discharge Date Admission Date: August 08, 2025 Subjective Pt seen in follow up, hospitalized last month w/ UTI and bacteremia, hx of Hanna Now presents w/AMS, sepsis. Blood cultx, Ucultx pending, started on zosyn on admission Currently sitting up in bed in NAD He is awake, appears weak, able to say that he is in the hospital. Pt is very hard of hearing. Wrote on paper and he was able to answer fairly appropriately. Denies any chest pain, shortness of breath, or abd. pain. Ucultx posit. for gram negat.bacilli Review of Systems Review of Systems: All systems reviewed & are unremarkable except as noted in Subjective Physical Exam Physical Exam: GENERAL: WD/WN elderly frail M in NAD, awake,hard of hearing, no respiratory distress HEENT: NC/AT. nasal cannula in place NECK : Supple CHEST : Decreased breath sounds, no tenderness HEART : Bradycardic, systolic murmur ABDOMEN: Some distention, soft, nontender EXTREMITIES : Right BKA stump NEUROLOGIC : Awake, no facial asymmetry, marked hearing impairment, only able to answer some questions appropriately, moves extremities SKIN: Pallor, warm Results & Data Results & Data Vital Signs (Past 12 Hours) Vital Signs Temp Pulse Pulse Resp BP Pulse Ox Pulse Ox 08/10/25 07:46 36.4 C L 57 L 18 136/69 94 08/10/25 03:16 36.4 C L 59 L 18 143/80 H 93 08/10/25 00:57 98 08/09/25 23:56 36.6 C 52 L 18 132/62 98 08/09/25 22:37 51 L 08/09/25 21:28 O2 Del Method O2 Del Method O2 Flow Rate O2 Flow Rate 08/10/25 07:46 Nasal Cannula 2 08/10/25 03:16 Nasal Cannula 2 08/10/25 00:57 Nasal Cannula 2 08/09/25 23:56 Nasal Cannula 2 08/09/25 22:37 08/09/25 21:28 Nasal Cannula 2 Laboratory Results 08/10/25 08/10/25 08/09/25 Range/Units 08:01 06:58 20:09 WBC 8.85 (4.8-10.8) K/ul RBC 3.02 L (4.70-6.10) M/uL Hgb 8.5 L (14.0-18.0) g/dl Hct 26.9 L (42.0-52.0) % MCV 89.1 (80.0-100.0) fL MCH 28.1 (25.0-34.0) pg MCHC 31.6 L (32.0-36.0) g/dL RDW Std Deviation 45.6 (36.4-46.3) fL RDW Coeff of Scott 14.0 (11.5-14.5) % Plt Count 169 (130-400) K/uL MPV 10.4 (9.4-12.4) fL Immature Gran % (Auto) % Neut % (Auto) % Lymph % (Auto) % Bowman % (Auto) % Eos % (Auto) % Baso % (Auto) % Neut # (Auto) (1.40-6.50) K/uL Lymph # (Auto) (1.20-3.40) K/uL Bowman # (Auto) (0.11-0.59) K/uL Eos # (Auto) (0.00-0.50) K/uL Baso # (Auto) (0.00-0.20) K/uL Immature Gran # (Auto) (0.01-0.20) K/uL Polychromasia Sodium 141 (136-145) mmol/L Potassium 4.0 (3.5-5.1) mmol/L Chloride 104 (98-107) mmol/L Carbon Dioxide 31 (21-32) mmol/L Anion Gap 6 (3-11) BUN 46 H (6-23) mg/dl Creatinine 3.06 H (0.6-1.4) mg/dl Est Cr Clr Drug Dosing 19.3 ml/min eGFR 19.88 BUN/Creatinine Ratio 15.0 (10-20) Glucose 121 H (70-99(Fasting)) mg/dl POC Glucose 133 H 137 H (70-99) mg/dl Calcium 8.7 (8.6-10.3) mg/dl Phosphorus 4.5 (2.5-4.9) mg/dl Magnesium 2.1 (1.7-2.4) mg/dl Crossmatch 08/09/25 08/09/25 08/09/25 Range/Units 16:50 12:01 07:28 WBC 12.14 H (4.8-10.8) K/ul RBC 2.75 L (4.70-6.10) M/uL Hgb 7.9 L (14.0-18.0) g/dl Hct 24.5 L (42.0-52.0) % MCV 89.1 (80.0-100.0) fL MCH 28.7 (25.0-34.0) pg MCHC 32.2 (32.0-36.0) g/dL RDW Std Deviation 45.7 (36.4-46.3) fL RDW Coeff of Scott 14.1 (11.5-14.5) % Plt Count 151 (130-400) K/uL MPV 10.8 (9.4-12.4) fL Immature Gran % (Auto) 0.3 % Neut % (Auto) 64.2 % Lymph % (Auto) 19.9 % Bowman % (Auto) 10.9 % Eos % (Auto) 4.3 % Baso % (Auto) 0.4 % Neut # (Auto) 7.79 H (1.40-6.50) K/uL Lymph # (Auto) 2.42 (1.20-3.40) K/uL Bowman # (Auto) 1.32 H (0.11-0.59) K/uL Eos # (Auto) 0.52 H (0.00-0.50) K/uL Baso # (Auto) 0.05 (0.00-0.20) K/uL Immature Gran # (Auto) 0.04 (0.01-0.20) K/uL Polychromasia 1+ Sodium 141 (136-145) mmol/L Potassium 3.9 (3.5-5.1) mmol/L Chloride 104 (98-107) mmol/L Carbon Dioxide 30 (21-32) mmol/L Anion Gap 7 (3-11) BUN 47 H (6-23) mg/dl Creatinine 3.07 H (0.6-1.4) mg/dl Est Cr Clr Drug Dosing 19.2 ml/min eGFR 19.80 BUN/Creatinine Ratio 15.3 (10-20) Glucose 101 H (70-99(Fasting)) mg/dl POC Glucose 131 H 111 H (70-99) mg/dl Calcium 8.5 L (8.6-10.3) mg/dl Phosphorus 4.2 (2.5-4.9) mg/dl Magnesium 2.1 (1.7-2.4) mg/dl Crossmatch 08/08/25 Range/Units 21:34 WBC (4.8-10.8) K/ul RBC (4.70-6.10) M/uL Hgb (14.0-18.0) g/dl Hct (42.0-52.0) % MCV (80.0-100.0) fL MCH (25.0-34.0) pg MCHC (32.0-36.0) g/dL RDW Std Deviation (36.4-46.3) fL RDW Coeff of Scott (11.5-14.5) % Plt Count (130-400) K/uL MPV (9.4-12.4) fL Immature Gran % (Auto) % Neut % (Auto) % Lymph % (Auto) % Bowman % (Auto) % Eos % (Auto) % Baso % (Auto) % Neut # (Auto) (1.40-6.50) K/uL Lymph # (Auto) (1.20-3.40) K/uL Bowman # (Auto) (0.11-0.59) K/uL Eos # (Auto) (0.00-0.50) K/uL Baso # (Auto) (0.00-0.20) K/uL Immature Gran # (Auto) (0.01-0.20) K/uL Polychromasia Sodium (136-145) mmol/L Potassium (3.5-5.1) mmol/L Chloride (98-107) mmol/L Carbon Dioxide (21-32) mmol/L Anion Gap (3-11) BUN (6-23) mg/dl Creatinine (0.6-1.4) mg/dl Est Cr Clr Drug Dosing ml/min eGFR BUN/Creatinine Ratio (10-20) Glucose (70-99(Fasting)) mg/dl POC Glucose (70-99) mg/dl Calcium (8.6-10.3) mg/dl Phosphorus (2.5-4.9) mg/dl Magnesium (1.7-2.4) mg/dl Crossmatch See Detail Medications Administered Current Inpatient Medications Acetaminophen (Acetaminophen 325 Mg Tab) 650 mg PO QID PRN PRN Reason: pain/fever Stop: 09/07/25 20:46 Amiodarone HCl (Amiodarone 200 Mg Tab) 100 mg PO QAM [facility] Stop: 09/08/25 08:59 Last Admin: 08/09/25 07:54 Dose: Not Given Amitriptyline HCl (Amitriptyline Hcl 10 Mg Tab) 30 mg PO [facility] Stop: 09/07/25 20:59 Last Admin: 08/09/25 20:06 Dose: 30 mg Apixaban (Apixaban 2.5 Mg Tab) 2.5 mg PO [facility] Stop: 09/08/25 20:59 Last Admin: 08/09/25 20:06 Dose: 2.5 mg Atorvastatin Calcium (Atorvastatin 40 Mg Tab) 40 mg PO [facility] Stop: 09/07/25 20:59 Last Admin: 08/09/25 20:07 Dose: 40 mg Dextrose (Dextrose 50% 50 Ml Syringe) 25 - 50 ml IV UD PRN; Protocol PRN Reason: Hypoglycemia Protocol Stop: 09/07/25 20:59 Docusate Sodium (Docusate Sodium 100 Mg Cap) 100 mg PO [facility] Stop: 09/07/25 20:59 Last Admin: 08/09/25 20:05 Dose: 100 mg Finasteride (Finasteride 5 Mg Tab) 5 mg PO QAM [facility] Stop: 09/08/25 08:59 Last Admin: 08/09/25 07:49 Dose: 5 mg Glucagon (Glucagon For Inj 1 Mg Vial) 1 mg SQ UD PRN; Protocol PRN Reason: Hypoglycemia Protocol Stop: 09/07/25 20:59 Glucose (Glucose 40% Gel 15 Gm Tube) 15 - 30 gm PO UD PRN; Protocol PRN Reason: Hypoglycemia Protocol Stop: 09/07/25 20:59 Glucose (Glucose 10 Tab/Tube) 4 - 8 tab PO UD PRN; Protocol PRN Reason: Hypoglycemia Protocol Stop: 09/07/25 20:59 Promethazine HCl (Phenergan) 6.25 mg in 50.25 mls @ 201 mls/hr IV Q6H PRN PRN Reason: Nausea And Vomiting Stop: 09/07/25 20:46 Piperacillin Sod/Tazobactam Sod (Zosyn) 4.5 gm in 100 mls @ 25 mls/hr IV Q12H [facility]; Protocol Stop: 08/16/25 06:29 Last Admin: 08/10/25 06:12 Dose: 25 mls/hr Insulin Aspart (Insulin Aspart Per Unit Charge) 0 units SC ACHS [facility] Stop: 09/08/25 00:56 Last Admin: 08/09/25 20:59 Dose: Not Given Insulin Glargine (Lantus Per Unit Charge) 5 units SC DAILY [facility] Stop: 09/08/25 08:59 Last Admin: 08/09/25 09:45 Dose: 5 units Metoprolol Succinate (Metoprolol Succ 25mg Ext Rel Tab) 25 mg PO BID [facility] Stop: 09/07/25 20:59 Last Admin: 08/09/25 20:07 Dose: Not Given Miscellaneous (Carbohydrates For Hypoglycemia ) 15 - 30 gm PO UD PRN PRN Reason: Hypoglycemia Treatment Stop: 09/07/25 20:59 Oxycodone HCl (Oxycodone Hcl Ir 5 Mg Tab (Immediate Release)) 5 mg PO Q4H PRN PRN Reason: Pain Stop: 08/22/25 20:46 Pantoprazole Sodium (Pantoprazole 40 Mg Tab) 40 mg PO BID [facility] Stop: 09/07/25 20:59 Last Admin: 08/09/25 20:07 Dose: 40 mg Polyethylene Glycol (Polyethylene (Miralax) 17 Gm Pack) 17 gm PO DAILY [facility] Stop: 09/08/25 09:44 Last Admin: 08/09/25 09:50 Dose: 17 gm Pregabalin (Pregabalin 75 Mg Cap) 75 mg PO [facility] Stop: 09/07/25 20:59 Last Admin: 08/09/25 20:05 Dose: 75 mg Senna/Docusate Sodium (Docusate Sodium/Senna 50/8.6mg Tab) 1 tab PO [facility] Stop: 09/07/25 20:59 Last Admin: 08/09/25 20:05 Dose: 1 tab Tamsulosin HCl (Tamsulosin Hcl 0.4 Mg Cap) 0.4 mg PO HS [facility] Stop: 09/07/25 20:59 Last Admin: 08/09/25 20:07 Dose: 0.4 mg
[2025-08-10] MEDS ORDERED: PHA DELIRIUM CONSULT PRN (17:06)
[2025-08-11 05:46] LABS: A calco-baum cmplx NotReported Not Detected (NotDetected); Bact fragilis Not Reported Not Detected (NotDetected); Blood Culture Id Panel See PCR Comment (NotDetected); C auris Not Reported Not Detected (NotDetected); Calbicans Not Reported Not Detected (NotDetected); Candida glabrata Not Reported DETECTED (NotDetected); Candida krusei Not Reported Not Detected (NotDetected); Cneoformans/gatti Not Reported Not Detected (NotDetected); Cparapsilosis Not Reported Not Detected (NotDetected); Ctropicalis Not Reported Not Detected (NotDetected); E cloacae compx Not Reported Not Detected (NotDetected); Efaecalis Not Reported Not Detected (NotDetected); Efaecium Not Reported Not Detected (NotDetected); Enterobacterales Not Reported Not Detected (NotDetected); Escherichia coli Not Reported Not Detected (NotDetected); H influenzae Not Reported Not Detected (NotDetected); K aerogenes Not Reported Not Detected (NotDetected); Koxytoca Not Reported Not Detected (NotDetected); Kpneumoniae grp Not Reported Not Detected (NotDetected); Lmonocyt Not Reported Not Detected (NotDetected); N meningitidis Not Reported Not Detected (NotDetected); P aeruginosa Not Reported Not Detected (NotDetected); Proteus spp Not Reported Not Detected (NotDetected); Salmonella spp Not Reported Not Detected (NotDetected); Staph lugdunensis Not Reported Not Detected (NotDetected); Staph spp. Not Reported Not Detected (NotDetected); Staphaureus Not Reported Not Detected (NotDetected); Staphepi Not Reported Not Detected (NotDetected); Stenmaltophilia Not Reported Not Detected (NotDetected); Strep agal(GrpB) Not Reported Not Detected (NotDetected); Strep pneum Not Reported Not Detected (NotDetected); Strep pyog (GrpA) Not Reported Not Detected (NotDetected); Strep spp Not Reported Not Detected (NotDetected)
[2025-08-11 05:55] LABS: Candida glabrata DETECTED (NotDetected)
[2025-08-11] MEDS: CASPOFUNGIN 70 MG in SODIUM CHLORIDE 0.9% 250 ML IV ONE (06:48)
[2025-08-11 07:28] LABS: Hematocrit (blood only) 28.4 % (42.0-52.0); Hemoglobin 8.8 g/dl (14.0-18.0); Mean Corpuscular Hemoglobin 27.8 pg (25.0-34.0); Mean Corpuscular Volume 89.9 fL (80.0-100.0); Platelet Count 178 K/uL (130-400); RDW Standard Deviation 45.1 fL (36.4-46.3); Red Blood Count 3.16 M/uL (4.70-6.10); White Blood Count 10.18 K/ul (4.8-10.8)
[2025-08-11 07:47] LABS: Anion Gap 7.0 (3-11); Blood Urea Nitrogen 45.0 mg/dl (6-23); Calcium 8.7 mg/dl (8.6-10.3); Carbon Dioxide 31.0 mmol/L (21-32); Chloride 103.0 mmol/L (98-107); Creatinine Clr Calc Pharmacy 19.8 ml/min; Glucose 111.0 mg/dl (70-99(Fasting)); Magnesium 2.0 mg/dl (1.7-2.4); Potassium 4.3 mmol/L (3.5-5.1); Sodium 141.0 mmol/L (136-145)
--- NOTE | 2025-08-11 09:27 | Hospitalist Progress Note ---
Date of Service August 11, 2025 Assessment & Plan (1) Encephalopathy: Plan: Per admitting provider w/ addendum Encephalopathy Complicated UTI 2/2 Hanna catheter Multifactorial Sepsis, possible sources (HCAP, history of aspiration risk; recurrent complicated UTI secondary to chronic indwelling Hanna catheter, BPH, hydronephrosis) Neuropsychotropic medications contributory Patient mentating better after initial intervention at the ER. Admitted to medical telemetry Follow blood cultx, urine cultx Ucultx posit for Gram negat. bacilli - Pseudomonas Blood culture positive for yeast - C. glabrata and caspofungin was started overnight. ID consult placed as well. Recently hospitalized for UTI, bacteremia, hx of Hanna Currently on Zosyn, will cont. Aspiration precautions, Hold for sedation/confusion parameters for patient neuropsychotropic medications 10 Pt is awake, able to say that he is in the hospital, very hard of hearing. Not able to provide much history. 08/10 WBC 18k on admission now down to 8k - normalized Pt awake and communicates better when things written down, as he is very hard of hearing. 08/11 WBC 10K. Started caspofungin overnight, in addition to zosyn, as above. Pt awake, able to answer some questions appropriately Chronic conditions: chronic diastolic heart failure (EF 50-55%, TTE 2024), patient on the dry side Chronic respiratory failure on home O2 as per records A-fib on Eliquis, patient NSR on the bradycardic side, decreased maintenance beta-arnel and amiodarone doses for now. DC amiodarone if with persistent bradycardia. valvular heart disease (severe , mild MR/TR) PAD hypertension, stable hyperlipidemia, on statin Rx DM2 insulin requiring, well-controlled as of recent hemoglobin A1c of 6.2 last March 2025. Basal bolus insulin, ISS BG goal 110-140, carb count coverage CRI, creatinine at baseline chronic anemia, hemoglobin at baseline. Follow H&H, transfuse PRBC to maintain hemoglobin of at least 8, Hgb 7.9 yesterday, 8.5 this AM. cont. Eliquis, cont. to monitor H&H severe hearing loss, assisted hearing device/headphone useful for patient commu nication history of right BKA history of MRSA past tobacco abuse DVT prophylaxis. SCDs , Eliquis DNR as per patient's prior wishes. Patient' - Ms. Farhana Sebastian, contact #[phone]. Admission and Anticipated Discharge Date Admission Date: August 08, 2025 Subjective Pt seen in follow up, hospitalized last month w/ UTI and bacteremia, hx of Hanna Now admitted again as presents w/AMS, sepsis. Blood cultx - now growing yeast - C. glabrata, Ucultx posit. for Pseudomonas On admission was started on zosyn, which was continued Currently sitting up in bed in NAD He is awake, appears weak, able to say that he is in the hospital. Pt is very hard of hearing. Wrote on paper and he was able to answer some questions fairly appropriately. Denies any chest pain, shortness of breath, or abd. pain. Discussed w/ RN at the bedside - will try to print out simple questions for pt to read easily and re-orient frequently Overnight blood cultx positive for yeast - C. glabrata and caspofungin was started overnight. ID consult placed as well. Tried to update family, left several messages on their phone. Review of Systems Review of Systems: All systems reviewed & are unremarkable except as noted in Subjective Physical Exam Physical Exam: GENERAL: WD/WN elderly frail M in NAD, awake,hard of hearing, no respiratory distress HEENT: NC/AT. nasal cannula in place NECK : Supple CHEST : Decreased breath sounds, no tenderness HEART : Bradycardic, systolic murmur ABDOMEN: Some distention, soft, nontender EXTREMITIES : Right BKA stump NEUROLOGIC : Awake, no facial asymmetry, marked hearing impairment, only able to answer some questions appropriately, moves extremities SKIN: Pallor, warm Results & Data Results & Data Vital Signs (Past 12 Hours) Vital Signs Temp Pulse Pulse Resp BP Pulse Ox O2 Del Method 08/11/25 08:13 36.6 C 61 20 155/83 H 97 Room Air 08/11/25 03:42 36.7 C 65 18 164/78 H 97 Nasal Cannula 08/11/25 00:16 36.6 C 62 18 120/69 97 Nasal Cannula 08/10/25 21:44 55 L O2 Flow Rate 08/11/25 08:13 08/11/25 03:42 2 08/11/25 00:16 2 08/10/25 21:44 Laboratory Results 08/11/25 08/11/25 08/10/25 Range/Units 08:01 07:08 20:15 WBC 10.18 (4.8-10.8) K/ul RBC 3.16 L (4.70-6.10) M/uL Hgb 8.8 L (14.0-18.0) g/dl Hct 28.4 L (42.0-52.0) % MCV 89.9 (80.0-100.0) fL MCH 27.8 (25.0-34.0) pg MCHC 31.0 L (32.0-36.0) g/dL RDW Std Deviation 45.1 (36.4-46.3) fL RDW Coeff of Scott 13.5 (11.5-14.5) % Plt Count 178 (130-400) K/uL MPV 10.4 (9.4-12.4) fL Sodium 141 (136-145) mmol/L Potassium 4.3 (3.5-5.1) mmol/L Chloride 103 (98-107) mmol/L Carbon Dioxide 31 (21-32) mmol/L Anion Gap 7 (3-11) BUN 45 H (6-23) mg/dl Creatinine 2.98 H (0.6-1.4) mg/dl Est Cr Clr Drug Dosing 19.8 ml/min eGFR 20.52 BUN/Creatinine Ratio 15.1 (10-20) Glucose 111 H (70-99(Fasting)) mg/dl POC Glucose 122 H 71 (70-99) mg/dl Calcium 8.7 (8.6-10.3) mg/dl Phosphorus 4.2 (2.5-4.9) mg/dl Magnesium 2.0 (1.7-2.4) mg/dl C. glabrata (PCR) (NotDetected) Bld Cult ID Panel PCR (NotDetected) 08/10/25 08/10/25 08/08/25 Range/Units 17:10 11:47 17:14 WBC (4.8-10.8) K/ul RBC (4.70-6.10) M/uL Hgb (14.0-18.0) g/dl Hct (42.0-52.0) % MCV (80.0-100.0) fL MCH (25.0-34.0) pg MCHC (32.0-36.0) g/dL RDW Std Deviation (36.4-46.3) fL RDW Coeff of Scott (11.5-14.5) % Plt Count (130-400) K/uL MPV (9.4-12.4) fL Sodium (136-145) mmol/L Potassium (3.5-5.1) mmol/L Chloride (98-107) mmol/L Carbon Dioxide (21-32) mmol/L Anion Gap (3-11) BUN (6-23) mg/dl Creatinine (0.6-1.4) mg/dl Est Cr Clr Drug Dosing ml/min eGFR BUN/Creatinine Ratio (10-20) Glucose (70-99(Fasting)) mg/dl POC Glucose 100 H 167 H (70-99) mg/dl Calcium (8.6-10.3) mg/dl Phosphorus (2.5-4.9) mg/dl Magnesium (1.7-2.4) mg/dl C. glabrata (PCR) DETECTED A (NotDetected) Bld Cult ID Panel PCR See PCR Comment (NotDetected) Medications Administered Current Inpatient Medications Acetaminophen (Acetaminophen 325 Mg Tab) 650 mg PO QID PRN PRN Reason: pain/fever Stop: 09/07/25 20:46 Amiodarone HCl (Amiodarone 200 Mg Tab) 100 mg PO [facility] Stop: 09/08/25 08:59 Last Admin: 08/10/25 09:51 Dose: 100 mg Amitriptyline HCl (Amitriptyline Hcl 10 Mg Tab) 30 mg PO [facility] Stop: 09/07/25 20:59 Last Admin: 08/10/25 20:25 Dose: Not Given Apixaban (Apixaban 2.5 Mg Tab) 2.5 mg PO [facility] Stop: 09/08/25 20:59 Last Admin: 08/10/25 20:35 Dose: 2.5 mg Atorvastatin Calcium (Atorvastatin 40 Mg Tab) 40 mg PO [facility] Stop: 09/07/25 20:59 Last Admin: 08/10/25 20:35 Dose: 40 mg Dextrose (Dextrose 50% 50 Ml Syringe) 25 - 50 ml IV UD PRN; Protocol PRN Reason: Hypoglycemia Protocol Stop: 09/07/25 20:59 Docusate Sodium (Docusate Sodium 100 Mg Cap) 100 mg PO [facility] Stop: 09/07/25 20:59 Last Admin: 08/10/25 20:35 Dose: 100 mg Finasteride (Finasteride 5 Mg Tab) 5 mg PO QAM [facility] Stop: 09/08/25 08:59 Last Admin: 08/10/25 09:53 Dose: 5 mg Glucagon (Glucagon For Inj 1 Mg Vial) 1 mg SQ UD PRN; Protocol PRN Reason: Hypoglycemia Protocol Stop: 09/07/25 20:59 Glucose (Glucose 40% Gel 15 Gm Tube) 15 - 30 gm PO UD PRN; Protocol PRN Reason: Hypoglycemia Protocol Stop: 09/07/25 20:59 Glucose (Glucose 10 Tab/Tube) 4 - 8 tab PO UD PRN; Protocol PRN Reason: Hypoglycemia Protocol Stop: 09/07/25 20:59 Promethazine HCl (Phenergan) 6.25 mg in 50.25 mls @ 201 mls/hr IV Q6H PRN PRN Reason: Nausea And Vomiting Stop: 09/07/25 20:46 Piperacillin Sod/Tazobactam Sod (Zosyn) 4.5 gm in 100 mls @ 25 mls/hr IV Q12H [facility]; Protocol Stop: 08/16/25 06:29 Last Admin: 08/11/25 06:27 Dose: 25 mls/hr Caspofungin 50 mg/ Sodium (Chloride) 260 mls @ 250 mls/hr IV Q24H [facility]; Protocol Stop: 08/22/25 05:59 Insulin Aspart (Insulin Aspart Per Unit Charge) 0 units SC ACHS [facility] Stop: 09/08/25 00:56 Last Admin: 08/10/25 20:25 Dose: Not Given Insulin Glargine (Lantus Per Unit Charge) 5 units SC DAILY [facility] Stop: 09/08/25 08:59 Last Admin: 08/10/25 09:50 Dose: 5 units Metoprolol Succinate (Metoprolol Succ 25mg Ext Rel Tab) 25 mg PO BID [facility] Stop: 09/07/25 20:59 Last Admin: 08/10/25 20:35 Dose: Not Given Miscellaneous (Carbohydrates For Hypoglycemia ) 15 - 30 gm PO UD PRN PRN Reason: Hypoglycemia Treatment Stop: 09/07/25 20:59 Miscellaneous (Pha Delirium Consult) 1 ea N/A PRN PRN PRN Reason: Consult Stop: 09/09/25 17:05 Oxycodone HCl (Oxycodone Hcl Ir 5 Mg Tab (Immediate Release)) 5 mg PO Q4H PRN PRN Reason: Pain Stop: 08/22/25 20:46 Pantoprazole Sodium (Pantoprazole 40 Mg Tab) 40 mg PO BID [facility] Stop: 09/07/25 20:59 Last Admin: 08/10/25 20:35 Dose: 40 mg Polyethylene Glycol (Polyethylene (Miralax) 17 Gm Pack) 17 gm PO DAILY [facility] Stop: 09/08/25 09:44 Last Admin: 08/10/25 09:53 Dose: 17 gm Pregabalin (Pregabalin 75 Mg Cap) 75 mg PO [facility] Stop: 09/07/25 20:59 Last Admin: 08/10/25 20:35 Dose: 75 mg Senna/Docusate Sodium (Docusate Sodium/Senna 50/8.6mg Tab) 1 tab PO [facility] Stop: 09/07/25 20:59 Last Admin: 08/10/25 20:35 Dose: 1 tab Tamsulosin HCl (Tamsulosin Hcl 0.4 Mg Cap) 0.4 mg PO HS [facility] Stop: 09/07/25 20:59 Last Admin: 08/10/25 20:35 Dose: 0.4 mg
[2025-08-11] MEDS: FUROSEMIDE INJ 20 MG/2 ML VIAL IV ONE (11:18)
[2025-08-11] MEDS: ALBUT/IPRATROP 3MG/0.5MG NEB 3 ML VIAL NEB PRN (11:36)
--- NOTE | 2025-08-11 13:37 | Infectious Disease Consult ---
Date of Service August 11, 2025 Telehealth Information I performed this visit using a real-time telehealth connection between my location and the patients location ([facility]). After connecting through interactive tele-video, patient was identified by name and date of and/or wristband check.Patient (or authorized healthcare event representative) was informed that this was a telemedicine visit and it was being conducted confidentially over secure lines. My office door was closed and no one else was present in the room with me.Patient (or authorized healthcare event representative) provided consent to proceed with the visit, expressed an understanding of privacy and security of the telemedicine visit, and gave permission to have a hospital event representative in the room in order to assist with the visit and to conduct portions of the visit, as needed. I informed the patient (or authorized healthcare event representative) that I reviewed their record and presented the opportunity for them to ask any questions regarding the visit today. The patient agreed to participate. Assessment & Plan (1) Encephalopathy: (2) CESAR (acute kidney injury): (3) Acute alteration in mental status: (4) Complicated urinary tract infection: (5) Urinary tract infection: (6) Sepsis: (7) Fungemia: Plan Assessment: Pt is an 80 yo M with PMHx of chronic diastolic heart failure (EF 50-55%, TTE 2024), A-fib on Eliquis, valvular heart disease (severe , mild MR/TR), PAD, hypertension, hyperlipidemia, chronic respiratory failure on home O2, history of aspiration risk, recurrent UTIs secondary to chronic indwelling Hanna catheter, BPH, hydronephrosis, DM2 insulin requiring, CRI (baseline creatinine 3), chronic anemia (baseline hemoglobin of 8-9), severe hearing loss, history chronic LE venous ulcers, history of right BKA secondary to osteomyelitis, hoarding behavior as per records/hx of obsessional thoughts/acts as per records, history of MRSA, past tobacco abuse who presented to [facility] on 08/08/2025 with transient hypoxemia and AMS. At [facility], pt was started on Zosyn administered. Infectious Diseases work up (+) Yeast in blood 1/4 bottles and Urine culture (+) PsA. Plan: - Recommend switching Zosyn IV to Cipro 500 mg PO daily to complete 7 days of total antibiotic treatment for UTI. - Recommend continuing Caspofungin IV for now, recommend repeat fungal blood cultures every other day only if the most recent fungal blood cultures return positive. - Recommend TTE to r/o endovascular seeding. - Recommend Ophtho consultation to r/o endophthalmitis - we will not actively monitor patient, if additional recommendations are necessary, please contact to ID physician beauty sales consultant for teledoc services via tiger text or call. Thank you. History of Present Illness History of Present Illness Reason for Consult: yeast in blood, recent bacreremia, + UTI, Hanna History obtained from patient, family, and records. Limited history from patient secondary to severe hearing impairment. Pt is an 80 yo M with PMHx of chronic diastolic heart failure (EF 50-55%, TTE 2024), A-fib on Eliquis, valvular heart disease (severe , mild MR/TR), PAD, hypertension, hyperlipidemia, chronic respiratory failure on home O2, history of aspiration risk, recurrent UTIs secondary to chronic indwelling Hanna catheter, BPH, hydronephrosis, DM2 insulin requiring, CRI (baseline creatinine 3), chronic anemia (baseline hemoglobin of 8-9), severe hearing loss, history chronic LE venous ulcers, history of right BKA secondary to osteomyelitis, hoarding behavior as per records/hx of obsessional thoughts/acts as per records, history of MRSA, past tobacco abuse who presented to [facility] on 08/08/2025 with transient hypoxemia and AMS. At [facility], pt was started on Zosyn administered. Infectious Diseases work up (+) Yeast in blood 1/4 bottles and Urine culture (+) PsA. ID consulted for evaluation and management. Allergies Allergy/AdvReac Type Severity Reaction Status Date / Time lisinopril Allergy Severe Swelling Verified 06/21/25 13:07 of Face/Lips/Tongue hydrochlorothiazide Allergy Unknown Unknown - Unverified 06/21/25 13:07 On file w/ [facility] Home Medications Medication Instructions Recorded Confirmed Type insulin glargine 100 unit/mL (3 5 unit subcut HS 04/07/24 08/08/25 History mL) subcutaneous pen (Lantus Solostar U-100 Insulin) acetaminophen 325 mg tablet 650 mg PO Q6H PRN Fever greater 03/15/25 08/08/25 History (Tylenol) than 100/Pain amitriptyline 10 mg tablet 30 mg PO HS 03/15/25 08/08/25 History atorvastatin 40 mg tablet 40 mg PO HS 03/15/25 08/08/25 History docusate sodium 100 mg tablet 100 mg PO AMHS 03/15/25 08/08/25 History finasteride 5 mg tablet 5 mg PO QAM 03/15/25 08/08/25 History glucagon 1 mg solution for 1 mg IM DIRECTED PRN 03/15/25 08/08/25 History injection (Glucagon Emergency Kit) Hypoglycemia insulin lispro 100 unit/mL 1 sliding scale dose subcut 03/15/25 08/08/25 History subcutaneous solution (Humalog USEASDIRECTD U-100 Insulin) insulin lispro 100 unit/mL 2 unit subcut TIDM 03/15/25 08/08/25 History subcutaneous solution (Humalog U-100 Insulin) pregabalin 75 mg capsule 75 mg PO AMHS 03/15/25 08/08/25 History sennosides 8.6 mg-docusate sodium 1 tab PO AMHS constipation 03/15/25 08/08/25 History 50 mg tablet (Senokot-S) tamsulosin 0.4 mg capsule 0.4 mg PO HS 03/15/25 08/08/25 History pantoprazole 40 mg tablet,delayed 40 mg PO BID #60 tabs 03/20/25 08/08/25 Rx release amiodarone 200 mg tablet 200 mg PO QAM 08/08/25 08/08/25 History apixaban 2.5 mg tablet (Eliquis) 2.5 mg PO AMHS 08/08/25 08/08/25 History furosemide 20 mg tablet (Lasix) 20 mg PO QAM 08/08/25 08/08/25 History ipratropium 0.5 mg-albuterol 3 mg 3 ml inhalation Q4 PRN Shortness 08/08/25 08/08/25 History (2.5 mg base)/3 mL nebulization Of Breath Or Wheezing soln metoprolol succinate 50 mg 50 mg PO AMHS 08/08/25 08/08/25 History tablet,extended release 24 hr Patient History Medical History Pyelonephritis Hydronephrosis, bilateral Asymptomatic hypertensive urgency Bilateral lower leg cellulitis Blister of finger Maggot infestation CESAR (acute kidney injury) Surgical History History of ear surgery age 19, mastoid H/O shoulder surgery S/P foot surgery, left Family History Brother Diabetes Social History Smoking Status: Former smoker Tobacco Type: Cigarettes Second Hand Exposure: No; Do You Dip or Chew Tobacco: No; Hx Alcohol Use: No Hx Substance Use: No Preferred Language: Irish Communication Ability: Impaired Communication Ability Comment: Hearing Loss. Visual Impairment: Limited Hearing Ability: Use of Hearing Aid Director Of Cardiology Required: No Beliefs That Will Affect Care: None marital status: Current Living Situation: Personal Care Facility Current Living Situation Comment: [facility] current occupational status: retired How many Children do You have: 3 Other Information That Helps Us Care for You: No Feels Safe at Home: Yes Safety Concerns: Feels Safe At This Time during the past year weight has: remained stable Dental Care, Regularly: No Physical Activity Frequency: Does not Exercise Assistive Devices: Oxygen - Continuous Review of Systems could not obtain ROS due to AMS Physical Exam NA Results & Data Vital Signs (Past 12 Hours) Vital Signs Temp Pulse Pulse Resp BP Pulse Ox O2 Del Method 08/11/25 12:03 Nasal Cannula 08/11/25 11:37 59 L 20 91 Nasal Cannula 08/11/25 11:23 36.8 C 58 L 20 138/76 90 Nasal Cannula 08/11/25 08:13 36.6 C 61 20 155/83 H 97 Room Air 08/11/25 08:00 60 08/11/25 03:42 36.7 C 65 18 164/78 H 97 Nasal Cannula O2 Flow Rate 08/11/25 12:03 2 08/11/25 11:37 2 08/11/25 11:23 2 08/11/25 08:13 08/11/25 08:00 08/11/25 03:42 2 Laboratory Results Blood culture on 08/08/2025 Blood Culture Aerobic Preliminary 08/10/25-1800 No growth in Aerobic bottle after 48 hours. Blood Culture Anaerobic Preliminary 08/11/25-724 Organism 1 Yeast Sens Sensitivities Dependent on Further Identification Blood Culture PCR Panel If viewing in EMR, results available under LAB Serology tab. Blood culture on 08/11/2025 pending Urine culture on 08/08/2025 Urine Culture Final 08/11/25-0910 Organism 1 Pseudomonas aeruginosa [place] Count >100,000 CFU/ml Sens Sensitivities to Follow P [facility] --- --------- Amikacin S <=16 Aztreonam S <=4 Cefepime S <=2 Ceftazidime S 4 Ciprofloxacin S <=0.25 Levofloxacin S <=0.5 Meropenem S <=1 Tobramycin S <=2 Pip/Tazo S <=8 S = SENSITIVE I = INTERMEDIATE R = RESISTANT 08/11/25 09:45 Fungal Smear - Final Blood Fungal Culture - Pending 08/08/25 20:00 Urine Culture - Final Urine,Clean Catch Pseudomonas aeruginosa 08/08/25 17:14 Aerobic Blood Culture - Preliminary Blood No growth in Aerobic bottle after 48 hours. Anaerobic Blood Culture - Preliminary Yeast 08/08/25 17:33 Aerobic Blood Culture - Preliminary Blood No growth in Aerobic bottle after 48 hours. Anaerobic Blood Culture - Preliminary No growth in Anaerobic bottle after 48 hours. 08/11/25 08/11/25 08/11/25 16:59 12:07 08:01 WBC RBC Hgb Hct MCV MCH MCHC RDW Std Deviation RDW Coeff of Scott Plt Count MPV Sodium Potassium Chloride Carbon Dioxide Anion Gap BUN Creatinine Est Cr Clr Drug Dosing eGFR BUN/Creatinine Ratio Glucose POC Glucose 109 H 208 H 122 H Calcium Phosphorus Magnesium C. glabrata (PCR) Bld Cult ID Panel PCR 08/11/25 08/10/25 08/08/25 07:08 20:15 17:14 WBC 10.18 RBC 3.16 L Hgb 8.8 L Hct 28.4 L MCV 89.9 MCH 27.8 MCHC 31.0 L RDW Std Deviation 45.1 RDW Coeff of Scott 13.5 Plt Count 178 MPV 10.4 Sodium 141 Potassium 4.3 Chloride 103 Carbon Dioxide 31 Anion Gap 7 BUN 45 H Creatinine 2.98 H Est Cr Clr Drug Dosing 19.8 eGFR 20.52 BUN/Creatinine Ratio 15.1 Glucose 111 H POC Glucose 71 Calcium 8.7 Phosphorus 4.2 Magnesium 2.0 C. glabrata (PCR) DETECTED A Bld Cult ID Panel PCR See PCR Comment Diagnostic Findings CT chest on 08/08/2025 IMPRESSION: There are mild bibasilar areas of infiltrate and/or atelectasis. There is a compression fracture noted of the T6 vertebral body. This was not present on previous exam CT abd/pelvis on 08/08/2025 IMPRESSION: Limited exam. There is thickening of the urinary bladder wall. There are surrounding inflammatory changes. Findings may be related to cystitis. EKG Test Reason : Blood Pressure : */* mmHG Vent. Rate : 60 BPM Atrial Rate : 60 BPM P-R Int : 220 ms QRS Dur : 134 ms QT Int : 476 ms P-R-T Axes : 85 -61 60 degrees QTcB Int : 476 ms Medications Administered Home Medications Medication Instructions Recorded Confirmed Last Taken insulin glargine 100 unit/mL (3 5 unit subcut HS 04/07/24 08/08/25 03/14/25 mL) subcutaneous pen (Lantus Solostar U-100 Insulin) acetaminophen 325 mg tablet 650 mg PO Q6H PRN Fever greater 03/15/25 08/08/25 Unknown (Tylenol) than 100/Pain amitriptyline 10 mg tablet 30 mg PO HS 03/15/25 08/08/25 03/14/25 atorvastatin 40 mg tablet 40 mg PO HS 03/15/25 08/08/25 03/14/25 docusate sodium 100 mg tablet 100 mg PO [facility] 03/15/25 08/08/25 03/15/25 finasteride 5 mg tablet 5 mg PO QAM 03/15/25 08/08/25 03/15/25 glucagon 1 mg solution for 1 mg IM DIRECTED PRN 03/15/25 08/08/25 Unknown injection (Glucagon Emergency Kit) Hypoglycemia insulin lispro 100 unit/mL 1 sliding scale dose subcut 03/15/25 08/08/25 03/15/25 subcutaneous solution (Humalog USEASDIRECTD U-100 Insulin) insulin lispro 100 unit/mL 2 unit subcut TIDM 03/15/25 08/08/25 03/15/25 subcutaneous solution (Humalog U-100 Insulin) pregabalin 75 mg capsule 75 mg PO AMHS 03/15/25 08/08/25 03/15/25 sennosides 8.6 mg-docusate sodium 1 tab PO AMHS constipation 03/15/25 08/08/25 03/15/25 50 mg tablet (Senokot-S) tamsulosin 0.4 mg capsule 0.4 mg PO HS 03/15/25 08/08/25 03/14/25 pantoprazole 40 mg tablet,delayed 40 mg PO BID #60 tabs 03/20/25 08/08/25 Unknown release amiodarone 200 mg tablet 200 mg PO QAM 08/08/25 08/08/25 Unknown apixaban 2.5 mg tablet (Eliquis) 2.5 mg PO AMHS 08/08/25 08/08/25 Unknown furosemide 20 mg tablet (Lasix) 20 mg PO QAM 08/08/25 08/08/25 Unknown ipratropium 0.5 mg-albuterol 3 mg 3 ml inhalation Q4 PRN Shortness 08/08/25 08/08/25 Unknown (2.5 mg base)/3 mL nebulization Of Breath Or Wheezing soln metoprolol succinate 50 mg 50 mg PO AMHS 08/08/25 08/08/25 Unknown tablet,extended release 24 hr Active Medications Generic Name Dose Route Start Last Admin Trade Name Freq PRN Reason Stop Dose Admin Albuterol 3 ml 08/11/25 10:33 08/11/25 11:36 Albut/Ipratrop 3mg/0.5mg Neb 3 Ml Vial NEB 09/10/25 10:32 3 ml Q6R PRN Administration wheezing, shortness of breath Protocol Amiodarone HCl 100 mg 08/09/25 09:00 08/11/25 10:05 Amiodarone 200 Mg Tab PO 09/08/25 08:59 Not Given QAM DARIN Amitriptyline HCl 30 mg 08/08/25 21:00 08/10/25 20:25 Amitriptyline Hcl 10 Mg Tab PO 09/07/25 20:59 Not Given HS DARIN Apixaban 2.5 mg 08/09/25 21:00 08/11/25 09:59 Apixaban 2.5 Mg Tab PO 09/08/25 20:59 2.5 mg AMHS DARIN Administration Atorvastatin Calcium 40 mg 08/08/25 21:00 08/10/25 20:35 Atorvastatin 40 Mg Tab PO 09/07/25 20:59 40 mg HS DARIN Administration Docusate Sodium 100 mg 08/08/25 21:00 08/11/25 10:06 Docusate Sodium 100 Mg Cap PO 09/07/25 20:59 100 mg AMHS DARIN Administration Finasteride 5 mg 08/09/25 09:00 08/11/25 09:56 Finasteride 5 Mg Tab PO 09/08/25 08:59 5 mg QAM DARIN Administration Piperacillin Sod/Tazobactam Sod 4.5 gm in 100 mls @ 25 mls/hr 08/09/25 06:30 08/11/25 11:28 Zosyn IV 08/16/25 06:29 Infused Q12H DARIN Infusion Protocol Insulin Aspart 0 units 08/09/25 00:57 08/11/25 14:08 Insulin Aspart Per Unit Charge SC 09/08/25 00:56 7 units ACHS DARIN Administration Insulin Glargine 5 units 08/09/25 09:00 08/11/25 10:07 Lantus Per Unit Charge SC 09/08/25 08:59 5 units DAILY DARIN Administration Metoprolol Succinate 25 mg 08/08/25 21:00 08/11/25 11:20 Metoprolol Succ 25mg Ext Rel Tab PO 09/07/25 20:59 25 mg BID DARIN Administration Pantoprazole Sodium 40 mg 08/08/25 21:00 08/11/25 09:58 Pantoprazole 40 Mg Tab PO 09/07/25 20:59 40 mg BID DARIN Administration Polyethylene Glycol 17 gm 08/09/25 09:45 08/11/25 10:06 Polyethylene (Miralax) 17 Gm Pack PO 09/08/25 09:44 17 gm DAILY DARIN Administration Pregabalin 75 mg 08/08/25 21:00 08/11/25 10:07 Pregabalin 75 Mg Cap PO 09/07/25 20:59 75 mg AMHS DARIN Administration Senna/Docusate Sodium 1 tab 08/08/25 21:00 08/11/25 10:06 Docusate Sodium/Senna 50/8.6mg Tab PO 09/07/25 20:59 1 tab AMHS DARIN Administration Tamsulosin HCl 0.4 mg 08/08/25 21:00 08/10/25 20:35 Tamsulosin Hcl 0.4 Mg Cap PO 09/07/25 20:59 0.4 mg HS DARIN Administration
[2025-08-12] MEDS: CASPOFUNGIN 50 MG in SODIUM CHLORIDE 0.9% 250 ML IV SCH (06:19)
[2025-08-12 07:12] LABS: Hematocrit (blood only) 28.1 % (42.0-52.0); Hemoglobin 9.3 g/dl (14.0-18.0); Mean Corpuscular Hemoglobin 29.2 pg (25.0-34.0); Mean Corpuscular Volume 88.1 fL (80.0-100.0); Platelet Count 193 K/uL (130-400); RDW Standard Deviation 43.8 fL (36.4-46.3); Red Blood Count 3.19 M/uL (4.70-6.10); White Blood Count 9.51 K/ul (4.8-10.8)
--- NOTE | 2025-08-12 07:27 | Hospitalist Progress Note ---
Date of Service August 12, 2025 Assessment & Plan (1) Encephalopathy: Plan: Encephalopathy Complicated UTI 2/2 Hanna catheter Fungemia Encephalopathy, secondary to Sepsis, infection Neuropsychotropic medications may be contributory Patient mentating better after initial intervention at the ER. Admitted to medical telemetry Follow blood cultx, urine cultx Ucultx posit for Pseudomonas Blood culture positive for yeast - C. glabrata and caspofungin was started overnight. ID consulted and discussed with At [facility], pt was started on Zosyn administered. Infectious Diseases work up (+) Yeast in blood 1/4 bottles and Urine culture (+) PsA. Plan: - Recommend switching Zosyn IV to Cipro 500 mg PO daily to complete 7 days of total antibiotic treatment for UTI. --> changed to PO cipro - Recommend continuing Caspofungin IV for now, recommend repeat fungal blood cultures every other day only if the most recent fungal blood cultures return positive. - Recommend TTE to r/o endovascular seeding --> ech ordered - Recommend Ophtho consultation to r/o endophthalmitis - discussed w/ Dr. AGUILAR - ok as outpt Recently hospitalized for UTI, bacteremia, hx of Hanna On Zosyn --> now switched to PO cipro Aspiration precautions, Hold for sedation/confusion parameters for patient neuropsychotropic medications 10/ Pt is awake, able to say that he is in the hospital, very hard of hearing. Not able to provide much history. 08/10 WBC 18k on admission now down to 8k - normalized Pt awake and communicates better when things written down, as he is very hard of hearing. 10 WBC 10K. Started caspofungin overnight, in addition to zosyn, as above. Pt awake, able to answer some questions appropriately 08/12 WBC 9.5K, pt afebrile. Awake, alert, communicates with at the bedside and me, answers appropriately. Chronic conditions: chronic diastolic heart failure (EF 50-55%, TTE 2024), patient on the dry side Chronic respiratory failure on home O2 as per records A-fib on Eliquis, patient NSR on the bradycardic side, decreased maintenance beta-arnel and amiodarone doses for now. DC amiodarone if with persistent bradycardia. Amio stopped. valvular heart disease (severe , mild MR/TR) PAD hypertension, stable hyperlipidemia, on statin Rx DM2 insulin requiring, well-controlled as of recent hemoglobin A1c of 6.2 last March 2025. Basal bolus insulin, ISS BG goal 110-140, carb count coverage CRI, creatinine at baseline chronic anemia, hemoglobin at baseline. Follow H&H, transfuse PRBC to maintain hemoglobin of at least 8, Hgb 7.9 yesterday, 8.5 this AM. cont. Eliquis, cont. to monitor H&H severe hearing loss, assisted hearing device/headphone useful for patient communication history of right BKA history of MRSA past tobacco abuse DVT prophylaxis. SCDs , Eliquis DNR as per patient's prior wishes. Patient' - Ms. Farhana Sebastian, contact #[phone]. Admission and Anticipated Discharge Date Admission Date: August 08, 2025 Subjective Pt seen in follow up, hospitalized last month w/ UTI and bacteremia, hx of Hanna Now admitted again as presents w/AMS, sepsis. Blood cultx - now growing yeast - C. glabrata, Ucultx posit. for Pseudomonas On admission was started on zosyn, which was continued -> now switched to PO cipro Currently sitting up in bed in NAD He is awake, appears weak, able to say that he is in the hospital. Pt is very hard of hearing. Denies any chest pain, shortness of breath, or abd. pain. Pt's is present at the bedside. Pt is answering appropriately. She is helping feeding him. Updated pt's about infections that we are treating. He has an appointment w/ dermatology on Thursday - updated that her that he will not be able to make it. Review of Systems Review of Systems: All systems reviewed & are unremarkable except as noted in Subjective Physical Exam Physical Exam: GENERAL: WD/WN elderly frail M in NAD, awake,hard of hearing, no respiratory distress HEENT: NC/AT. nasal cannula in place NECK : Supple CHEST : Decreased breath sounds, no tenderness HEART : Bradycardic, systolic murmur ABDOMEN: Some distention, soft, nontender EXTREMITIES : Right BKA stump NEUROLOGIC : Awake, no facial asymmetry, marked hearing impairment, able to answer some simple questions appropriately, moves extremities SKIN: Pallor, warm Results & Data Results & Data Vital Signs (Past 12 Hours) Vital Signs Temp Pulse Pulse Resp BP Pulse Ox O2 Del Method 08/12/25 03:17 36.9 C 59 L 18 165/75 H 94 Nasal Cannula 08/11/25 23:00 36.9 C 57 L 18 139/72 97 Nasal Cannula 08/11/25 22:31 Nasal Cannula 08/11/25 22:19 57 L 08/11/25 20:16 36.2 C L 57 L 18 148/78 H 98 Nasal Cannula O2 Flow Rate 08/12/25 03:17 2 08/11/25 23:00 2 08/11/25 22:31 2 08/11/25 22:19 08/11/25 20:16 2 Laboratory Results 08/12/25 08/11/25 08/11/25 Range/Units 06:12 21:04 16:59 WBC 9.51 (4.8-10.8) K/ul RBC 3.19 L (4.70-6.10) M/uL Hgb 9.3 L (14.0-18.0) g/dl Hct 28.1 L (42.0-52.0) % MCV 88.1 (80.0-100.0) fL MCH 29.2 (25.0-34.0) pg MCHC 33.1 (32.0-36.0) g/dL RDW Std Deviation 43.8 (36.4-46.3) fL RDW Coeff of Scott 13.4 (11.5-14.5) % Plt Count 193 (130-400) K/uL MPV 10.5 (9.4-12.4) fL Sodium Pending (136-145) mmol/L Potassium Pending (3.5-5.1) mmol/L Chloride Pending (98-107) mmol/L Carbon Dioxide Pending (21-32) mmol/L Anion Gap Pending (3-11) BUN Pending (6-23) mg/dl Creatinine Pending (0.6-1.4) mg/dl Est Cr Clr Drug Dosing Pending ml/min eGFR Pending BUN/Creatinine Ratio Pending (10-20) Glucose Pending (70-99(Fasting)) mg/dl POC Glucose 80 109 H (70-99) mg/dl Calcium Pending (8.6-10.3) mg/dl Phosphorus Pending (2.5-4.9) mg/dl Magnesium Pending (1.7-2.4) mg/dl 10/10/25 10/10/25 10/10/25 Range/Units 12:07 08:01 07:08 WBC 10.18 (4.8-10.8) K/ul RBC 3.16 L (4.70-6.10) M/uL Hgb 8.8 L (14.0-18.0) g/dl Hct 28.4 L (42.0-52.0) % MCV 89.9 (80.0-100.0) fL MCH 27.8 (25.0-34.0) pg MCHC 31.0 L (32.0-36.0) g/dL RDW Std Deviation 45.1 (36.4-46.3) fL RDW Coeff of Scott 13.5 (11.5-14.5) % Plt Count 178 (130-400) K/uL MPV 10.4 (9.4-12.4) fL Sodium 141 (136-145) mmol/L Potassium 4.3 (3.5-5.1) mmol/L Chloride 103 (98-107) mmol/L Carbon Dioxide 31 (21-32) mmol/L Anion Gap 7 (3-11) BUN 45 H (6-23) mg/dl Creatinine 2.98 H (0.6-1.4) mg/dl Est Cr Clr Drug Dosing 19.8 ml/min eGFR 20.52 BUN/Creatinine Ratio 15.1 (10-20) Glucose 111 H (70-99(Fasting)) mg/dl POC Glucose 208 H 122 H (70-99) mg/dl Calcium 8.7 (8.6-10.3) mg/dl Phosphorus 4.2 (2.5-4.9) mg/dl Magnesium 2.0 (1.7-2.4) mg/dl Medications Administered Current Inpatient Medications Acetaminophen (Acetaminophen 325 Mg Tab) 650 mg PO QID PRN PRN Reason: pain/fever Stop: 09/07/25 20:46 Albuterol (Albut/Ipratrop 3mg/0.5mg Neb 3 Ml Vial) 3 ml NEB Q6R PRN; Protocol PRN Reason: wheezing, shortness of breath Stop: 09/10/25 10:32 Last Admin: 08/11/25 11:36 Dose: 3 ml Amiodarone HCl ([facility] 200 Mg Tab) [facility]: 09/08/25 08:59 Last Admin: 08/11/25 10:05 Dose: Not Given Amitriptyline HCl (Amitriptyline Hcl 10 Mg Tab) 30 mg PO [facility] Stop: 09/07/25 20:59 Last Admin: 08/11/25 22:16 Dose: 30 mg Apixaban (Apixaban 2.5 Mg Tab) 2.5 mg PO [facility] Stop: 09/08/25 20:59 Last Admin: 08/11/25 22:16 Dose: 2.5 mg Atorvastatin Calcium (Atorvastatin 40 Mg Tab) 40 mg PO [facility] Stop: 09/07/25 20:59 Last Admin: 08/11/25 22:16 Dose: 40 mg Ciprofloxacin (Ciprofloxacin 500 Mg Tab) 500 mg PO DAILY [facility]; Protocol Stop: 08/22/25 08:59 Dextrose (Dextrose 50% 50 Ml Syringe) 25 - 50 ml IV UD PRN; Protocol PRN Reason: Hypoglycemia Protocol Stop: 09/07/25 20:59 Docusate Sodium (Docusate Sodium 100 Mg Cap) 100 mg PO [facility] Stop: 09/07/25 20:59 Last Admin: 08/11/25 22:17 Dose: 100 mg Finasteride (Finasteride 5 Mg Tab) 5 mg PO [facility] Stop: 09/08/25 08:59 Last Admin: 08/11/25 09:56 Dose: 5 mg Glucagon (Glucagon For Inj 1 Mg Vial) 1 mg SQ UD PRN; Protocol PRN Reason: Hypoglycemia Protocol Stop: 09/07/25 20:59 Glucose (Glucose 40% Gel 15 Gm Tube) 15 - 30 gm PO UD PRN; Protocol PRN Reason: Hypoglycemia Protocol Stop: 09/07/25 20:59 Glucose (Glucose 10 Tab/Tube) 4 - 8 tab PO UD PRN; Protocol PRN Reason: Hypoglycemia Protocol Stop: 09/07/25 20:59 Promethazine HCl (Phenergan) 6.25 mg in 50.25 mls @ 201 mls/hr IV Q6H PRN PRN Reason: Nausea And Vomiting Stop: 09/07/25 20:46 Caspofungin 50 mg/ Sodium (Chloride) 260 mls @ 250 mls/hr IV Q24H [facility]; Protocol Stop: 08/22/25 05:59 Last Admin: 08/12/25 06:19 Dose: 250 mls/hr Insulin Aspart (Insulin Aspart Per Unit Charge) 0 units SC ACHS [facility] Stop: 09/08/25 00:56 Last Admin: 08/11/25 21:08 Dose: Not Given Insulin Glargine (Lantus Per Unit Charge) 5 units SC DAILY [facility] Stop: 09/08/25 08:59 Last Admin: 08/11/25 10:07 Dose: 5 units Metoprolol Succinate (Metoprolol Succ 25mg Ext Rel Tab) 25 mg PO BID [facility] Stop: 09/07/25 20:59 Last Admin: 08/11/25 22:16 Dose: 25 mg Miscellaneous (Carbohydrates For Hypoglycemia ) 15 - 30 gm PO UD PRN PRN Reason: Hypoglycemia Treatment Stop: 09/07/25 20:59 Oxycodone HCl (Oxycodone Hcl Ir 5 Mg Tab (Immediate Release)) 5 mg PO Q4H PRN PRN Reason: Pain Stop: 08/22/25 20:46 Pantoprazole Sodium (Pantoprazole 40 Mg Tab) 40 mg PO BID [facility] Stop: 09/07/25 20:59 Last Admin: 08/11/25 22:17 Dose: 40 mg Polyethylene Glycol (Polyethylene (Miralax) 17 Gm Pack) 17 gm PO DAILY [facility] Stop: 09/08/25 09:44 Last Admin: 08/11/25 10:06 Dose: 17 gm Pregabalin (Pregabalin 75 Mg Cap) 75 mg PO [facility] Stop: 09/07/25 20:59 Last Admin: 08/11/25 22:16 Dose: 75 mg Senna/Docusate Sodium (Docusate Sodium/Senna 50/8.6mg Tab) 1 tab PO [facility] Stop: 09/07/25 20:59 Last Admin: 08/11/25 22:16 Dose: 1 tab Tamsulosin HCl (Tamsulosin Hcl 0.4 Mg Cap) 0.4 mg PO HS [facility] Stop: 09/07/25 20:59 Last Admin: 08/11/25 22:17 Dose: 0.4 mg
[2025-08-12 07:32] LABS: Anion Gap 7.0 (3-11); Blood Urea Nitrogen 47.0 mg/dl (6-23); Calcium 8.9 mg/dl (8.6-10.3); Carbon Dioxide 33.0 mmol/L (21-32); Chloride 100.0 mmol/L (98-107); Creatinine Clr Calc Pharmacy 19.0 ml/min; Glucose 110.0 mg/dl (70-99(Fasting)); Magnesium 1.9 mg/dl (1.7-2.4); Potassium 4.4 mmol/L (3.5-5.1); Sodium 140.0 mmol/L (136-145)
[2025-08-12] MEDS: CIPROFLOXACIN 500 MG TAB PO SCH (11:03)
--- NOTE | 2025-08-12 13:00 | XCELERA ---
[id number]
[2025-08-13 07:51] LABS: Hematocrit (blood only) 28.9 % (42.0-52.0); Hemoglobin 8.8 g/dl (14.0-18.0); Mean Corpuscular Hemoglobin 27.6 pg (25.0-34.0); Mean Corpuscular Volume 90.6 fL (80.0-100.0); Platelet Count 202 K/uL (130-400); RDW Standard Deviation 44.7 fL (36.4-46.3); Red Blood Count 3.19 M/uL (4.70-6.10); White Blood Count 9.69 K/ul (4.8-10.8)
--- NOTE | 2025-08-13 08:00 | Hospitalist Progress Note ---
Date of Service August 13, 2025 Assessment & Plan (1) Encephalopathy: Plan: Encephalopathy Complicated UTI 2/2 Hanna catheter Fungemia Encephalopathy, secondary to Sepsis, infection Neuropsychotropic medications may be contributory Patient mentating better after initial intervention at the ER. Admitted to medical telemetry Follow blood cultx, urine cultx Ucultx posit for Pseudomonas Blood culture positive for yeast - C. glabrata and caspofungin was started overnight. ID consulted and discussed with At [facility], pt was started on Zosyn administered. Infectious Diseases work up (+) Yeast in blood 1/4 bottles and Urine culture (+) PsA. Plan: - Recommend switching Zosyn IV to Cipro 500 mg PO daily to complete 7 days of total antibiotic treatment for UTI. --> changed to PO cipro - Recommend continuing Caspofungin IV for now, recommend repeat fungal blood cultures every other day only if the most recent fungal blood cultures return positive. - Recommend TTE to r/o endovascular seeding --> echo ordered - Recommend Ophtho consultation to r/o endophthalmitis - discussed w/ Dr. AGUILAR - ok as outpt Recently hospitalized for UTI, bacteremia, hx of Hanna On Zosyn --> now switched to PO cipro Aspiration precautions, Hold for sedation/confusion parameters for patient neuropsychotropic medications 08/09 Pt is awake, able to say that he is in the hospital, very hard of hearing. Not able to provide much history. 08/10 WBC 18k on admission now down to 8k - normalized Pt awake and communicates better when things written down, as he is very hard of hearing. 08/11 WBC 10K. Started caspofungin overnight, in addition to zosyn, as above. Pt awake, able to answer some questions appropriately 08/12 - 08/13 WBC 9.5K, pt afebrile. Awake, alert, communicates with at the bedside and me, answers appropriately. Chronic conditions: chronic diastolic heart failure (EF 50-55%, TTE 2024), patient on the dry side Chronic respiratory failure on home O2 as per records A-fib on Eliquis, patient NSR on the bradycardic side, decreased maintenance beta-arnel and amiodarone doses for now. DC amiodarone if with persistent bradycardia. Amio stopped. valvular heart disease (severe , mild MR/TR) PAD hypertension, stable hyperlipidemia, on statin Rx DM2 insulin requiring, well-controlled as of recent hemoglobin A1c of 6.2 last March 2025. Basal bolus insulin, ISS BG goal 110-140, carb count coverage CRI, creatinine at baseline chronic anemia, hemoglobin at baseline. Follow H&H, transfuse PRBC to maintain hemoglobin of at least 8, Hgb 7.9 yesterday, 8.5 this AM. cont. Eliquis, cont. to monitor H&H severe hearing loss, assisted hearing device/headphone useful for patient communication history of right BKA history of MRSA past tobacco abuse DVT prophylaxis. SCDs , Eliquis DNR as per patient's prior wishes. Patient' - Ms. Farhana Sebastian, contact #[phone]. Admission and Anticipated Discharge Date Admission Date: August 08, 2025 Subjective Pt seen in follow up, hospitalized last month w/ UTI and bacteremia, hx of Hanna Now admitted again as presents w/AMS, sepsis. Blood cultx - growing yeast - C. glabrata, Ucultx posit. for Pseudomonas On admission was started on zosyn -> now switched to PO cipro Currently sitting up in bed in NAD He is awake, appears weak, able to say that he is in the hospital. Pt is very hard of hearing. Pt's is present at the bedside. Pt is answering appropriately. She says she helped feed him breakfast. Updated pt's about infections that we are treating. He has an appointment w/ dermatology on Thursday - updated that her that he will not be able to make it. Review of Systems Review of Systems: All systems reviewed & are unremarkable except as noted in Subjective Physical Exam Physical Exam: GENERAL: WD/WN elderly frail M in NAD, awake,hard of hearing, no respiratory distress HEENT: NC/AT. nasal cannula in place NECK : Supple CHEST : Decreased breath sounds, no tenderness HEART : rrr, systolic murmur ABDOMEN: Some distention, soft, nontender EXTREMITIES : Right BKA stump NEUROLOGIC : Awake, no facial asymmetry, marked hearing impairment, able to answer some simple questions appropriately, moves extremities SKIN: Pallor, warm Results & Data Results & Data Vital Signs (Past 12 Hours) Vital Signs Temp Pulse Pulse Resp BP Pulse Ox O2 Del Method 08/13/25 02:03 37.1 C 65 18 162/81 H 96 Nasal Cannula 08/12/25 23:06 37.2 C 60 18 138/71 97 Nasal Cannula 08/12/25 22:54 59 L 08/12/25 22:28 Nasal Cannula 08/12/25 20:14 37 C 58 L 18 155/52 H 95 Nasal Cannula O2 Flow Rate 08/13/25 02:03 2 08/12/25 23:06 2 08/12/25 22:54 08/12/25 22:28 2 08/12/25 20:14 2 Laboratory Results 08/13/25 08/13/25 08/12/25 Range/Units 07:49 07:12 20:17 WBC 9.69 (4.8-10.8) K/ul RBC 3.19 L (4.70-6.10) M/uL Hgb 8.8 L (14.0-18.0) g/dl Hct 28.9 L (42.0-52.0) % MCV 90.6 (80.0-100.0) fL MCH 27.6 (25.0-34.0) pg MCHC 30.4 L (32.0-36.0) g/dL RDW Std Deviation 44.7 (36.4-46.3) fL RDW Coeff of Scott 13.6 (11.5-14.5) % Plt Count 202 (130-400) K/uL MPV 10.4 (9.4-12.4) fL Sodium Pending Potassium Pending Chloride Pending Carbon Dioxide Pending Anion Gap Pending BUN Pending Creatinine Pending Est Cr Clr Drug Dosing Pending eGFR Pending BUN/Creatinine Ratio Pending Glucose Pending POC Glucose 129 H 79 (70-99) mg/dl Calcium Pending Phosphorus Pending Magnesium Pending 08/12/25 08/12/25 08/12/25 Range/Units 16:56 11:47 08:18 WBC (4.8-10.8) K/ul RBC (4.70-6.10) M/uL Hgb (14.0-18.0) g/dl Hct (42.0-52.0) % MCV (80.0-100.0) fL MCH (25.0-34.0) pg MCHC (32.0-36.0) g/dL RDW Std Deviation (36.4-46.3) fL RDW Coeff of Scott (11.5-14.5) % Plt Count (130-400) K/uL MPV (9.4-12.4) fL Sodium Potassium Chloride Carbon Dioxide Anion Gap BUN Creatinine Est Cr Clr Drug Dosing eGFR BUN/Creatinine Ratio Glucose POC Glucose 97 182 H 121 H (70-99) mg/dl Calcium Phosphorus Magnesium Medications Administered Current Inpatient Medications Acetaminophen (Acetaminophen 325 Mg Tab) 650 mg PO QID PRN PRN Reason: pain/fever Stop: 09/07/25 20:46 Albuterol (Albut/Ipratrop 3mg/0.5mg Neb 3 Ml Vial) 3 ml NEB Q6R PRN; Protocol PRN Reason: wheezing, shortness of breath Stop: 09/10/25 10:32 Last Admin: 08/11/25 11:36 Dose: 3 ml [facility]iodarone HCl ([facility] 200 Mg Tab) [facility] Stop: 09/08/25 08:59 Last Admin: 08/11/25 10:05 Dose: Not Given Amitriptyline HCl (Amitriptyline Hcl 10 Mg Tab) 30 mg PO [facility] Stop: 09/07/25 20:59 Last Admin: 08/12/25 08:33 Dose: 30 mg Apixaban (Apixaban 2.5 Mg Tab) 2.5 mg PO [facility] Stop: 09/08/25 20:59 Last Admin: 08/12/25 22:00 Dose: 2.5 mg Atorvastatin Calcium (Atorvastatin 40 Mg Tab) 40 mg PO [facility] Stop: 09/07/25 20:59 Last Admin: 08/12/25 22:00 Dose: 40 mg Ciprofloxacin (Ciprofloxacin 500 Mg Tab) 500 mg PO DAILY [facility]; Protocol Stop: 08/22/25 08:59 Last Admin: 08/12/25 11:03 Dose: 500 mg Dextrose (Dextrose 50% 50 Ml Syringe) 25 - 50 ml IV UD PRN; Protocol PRN Reason: Hypoglycemia Protocol Stop: 09/07/25 20:59 Docusate Sodium (Docusate Sodium 100 Mg Cap) 100 mg PO [facility] Stop: 09/07/25 20:59 Last Admin: 08/12/25 22:00 Dose: 100 mg Finasteride (Finasteride 5 Mg Tab) 5 mg PO [facility] Stop: 09/08/25 08:59 Last Admin: 08/12/25 08:33 Dose: 5 mg Glucagon (Glucagon For Inj 1 Mg Vial) 1 mg SQ UD PRN; Protocol PRN Reason: Hypoglycemia Protocol Stop: 09/07/25 20:59 Glucose (Glucose 40% Gel 15 Gm Tube) 15 - 30 gm PO UD PRN; Protocol PRN Reason: Hypoglycemia Protocol Stop: 09/07/25 20:59 Glucose (Glucose 10 Tab/Tube) 4 - 8 tab PO UD PRN; Protocol PRN Reason: Hypoglycemia Protocol Stop: 09/07/25 20:59 Promethazine HCl (Phenergan) 6.25 mg in 50.25 mls @ 201 mls/hr IV Q6H PRN PRN Reason: Nausea And Vomiting Stop: 09/07/25 20:46 Caspofungin 50 mg/ Sodium (Chloride) 260 mls @ 250 mls/hr IV Q24H [facility]; Protocol Stop: 08/22/25 05:59 Last Infusion: 08/13/25 07:57 Dose: Infused Insulin Aspart (Insulin Aspart Per Unit Charge) 0 units SC ACHS [facility] Stop: 09/08/25 00:56 Last Admin: 08/12/25 22:01 Dose: Not Given Insulin Glargine (Lantus Per Unit Charge) 5 units SC DAILY [facility] Stop: 09/08/25 08:59 Last Admin: 08/12/25 09:22 Dose: 5 units Metoprolol Succinate (Metoprolol Succ 25mg Ext Rel Tab) 25 mg PO BID [facility] Stop: 09/07/25 20:59 Last Admin: 08/12/25 22:01 Dose: Not Given Miscellaneous (Carbohydrates For Hypoglycemia ) 15 - 30 gm PO UD PRN PRN Reason: Hypoglycemia Treatment Stop: 09/07/25 20:59 Oxycodone HCl (Oxycodone Hcl Ir 5 Mg Tab (Immediate Release)) 5 mg PO Q4H PRN PRN Reason: Pain Stop: 08/22/25 20:46 Pantoprazole Sodium (Pantoprazole 40 Mg Tab) 40 mg PO BID [facility] Stop: 09/07/25 20:59 Last Admin: 08/12/25 22:02 Dose: 40 mg Polyethylene Glycol (Polyethylene (Miralax) 17 Gm Pack) 17 gm PO DAILY [facility] Stop: 09/08/25 09:44 Last Admin: 08/12/25 08:37 Dose: 17 gm Pregabalin (Pregabalin 75 Mg Cap) 75 mg PO [facility] Stop: 09/07/25 20:59 Last Admin: 08/12/25 22:02 Dose: 75 mg Senna/Docusate Sodium (Docusate Sodium/Senna 50/8.6mg Tab) 1 tab PO [facility] Stop: 09/07/25 20:59 Last Admin: 08/12/25 22:01 Dose: 1 tab Tamsulosin HCl (Tamsulosin Hcl 0.4 Mg Cap) 0.4 mg PO [facility] Stop: 09/07/25 20:59 Last Admin: 08/12/25 22:02 Dose: 0.4 mg
[2025-08-13 08:23] LABS: Anion Gap 6.0 (3-11); Blood Urea Nitrogen 53.0 mg/dl (6-23); Calcium 9.0 mg/dl (8.6-10.3); Carbon Dioxide 34.0 mmol/L (21-32); Chloride 101.0 mmol/L (98-107); Creatinine Clr Calc Pharmacy 19.0 ml/min; Glucose 117.0 mg/dl (70-99(Fasting)); Magnesium 1.9 mg/dl (1.7-2.4); Potassium 4.1 mmol/L (3.5-5.1); Sodium 141.0 mmol/L (136-145)
[2025-08-13] MEDS: FUROSEMIDE INJ 20 MG/2 ML VIAL IV ONE (09:42)
[2025-08-13] MEDS: MAGNESIUM OXIDE 400 MG TAB PO SCH (10:15)
[2025-08-13] MEDS: guaiFENesin 600 MG TABCR PO SCH (10:15)
[2025-08-14 07:17] LABS: Hematocrit (blood only) 31.3 % (42.0-52.0); Hemoglobin 9.6 g/dl (14.0-18.0); Mean Corpuscular Hemoglobin 27.6 pg (25.0-34.0); Mean Corpuscular Volume 89.9 fL (80.0-100.0); Platelet Count 202 K/uL (130-400); RDW Standard Deviation 44.9 fL (36.4-46.3); Red Blood Count 3.48 M/uL (4.70-6.10); White Blood Count 8.74 K/ul (4.8-10.8)
[2025-08-14 07:37] LABS: Anion Gap 7.0 (3-11); Blood Urea Nitrogen 56.0 mg/dl (6-23); Calcium 9.2 mg/dl (8.6-10.3); Carbon Dioxide 35.0 mmol/L (21-32); Chloride 99.0 mmol/L (98-107); Creatinine Clr Calc Pharmacy 18.1 ml/min; Glucose 139.0 mg/dl (70-99(Fasting)); Magnesium 2.1 mg/dl (1.7-2.4); Potassium 4.2 mmol/L (3.5-5.1); Sodium 141.0 mmol/L (136-145)
--- NOTE | 2025-08-14 15:12 | Hospitalist Progress Note ---
Date of Service August 14, 2025 Assessment & Plan (1) Encephalopathy: Plan: Encephalopathy Complicated UTI 2/2 Hanna catheter Fungemia Encephalopathy, secondary to Sepsis, infection Neuropsychotropic medications may be contributory Patient mentating better after initial intervention at the ER. Admitted to medical telemetry Follow blood cultx, urine cultx Ucultx posit for Pseudomonas Blood culture positive for yeast - C. glabrata and caspofungin was started overnight. ID consulted and discussed with At [facility], pt was started on Zosyn administered. Infectious Diseases work up (+) Yeast in blood 1/4 bottles and Urine culture (+) PsA. Plan: - Recommend switching Zosyn IV to Cipro 500 mg PO daily to complete 7 days of total antibiotic treatment for UTI. --> changed to PO cipro - Recommend continuing Caspofungin IV for now, recommend repeat fungal blood cultures every other day only if the most recent fungal blood cultures return positive. - Recommend TTE to r/o endovascular seeding --> echo obtained - "Can not exclude vegetation on aortic valve" - Recommend Ophtho consultation to r/o endophthalmitis - discussed w/ Dr. AGUILAR - ok as outpt Recently hospitalized for UTI, bacteremia, hx of Hanna On Zosyn --> now switched to PO cipro Aspiration precautions, Hold for sedation/confusion parameters for patient neuropsychotropic medications 08/09 Pt is awake, able to say that he is in the hospital, very hard of hearing. Not able to provide much history. 08/10 WBC 18k on admission now down to 8k - normalized Pt awake and communicates better when things written down, as he is very hard of hearing. 08/11 WBC 10K. Started caspofungin overnight, in addition to zosyn, as above. Pt awake, able to answer some questions appropriately 08/12 - 08/13 WBC 9.5K, pt afebrile. Awake, alert, communicates with at the bedside and me, answers appropriately. 08/14 Blood cultx - Ratna glabrata -> called lab to send for sensitivities. Repeat fungal cultx from 08/11 so far negat. Chronic conditions: chronic diastolic heart failure (EF 50-55%, TTE 2024), patient on the dry side Chronic respiratory failure on home O2 as per records A-fib on Eliquis, patient NSR on the bradycardic side, decreased maintenance beta-arnel and amiodarone doses for now. DC amiodarone if with persistent bradycardia. Amio stopped. valvular heart disease (severe , mild MR/TR) PAD hypertension, stable hyperlipidemia, on statin Rx DM2 insulin requiring, well-controlled as of recent hemoglobin A1c of 6.2 last March 2025. Basal bolus insulin, ISS BG goal 110-140, carb count coverage CRI, creatinine at baseline chronic anemia, hemoglobin at baseline. Follow H&H, transfuse PRBC to maintain hemoglobin of at least 8, Hgb 7.9 yesterday, 8.5 this AM. cont. Eliquis, cont. to monitor H&H severe hearing loss, assisted hearing device/headphone useful for patient communication history of right BKA history of MRSA past tobacco abuse DVT prophylaxis. SCDs , Eliquis DNR as per patient's prior wishes. Patient' - Ms. Farhana Sebastian, contact #[phone]. Admission and Anticipated Discharge Date Admission Date: August 08, 2025 Subjective Pt seen in follow up, hospitalized last month w/ UTI and bacteremia, hx of Hanna Now admitted again as presents w/AMS, sepsis. Blood cultx - growing yeast - C. glabrata, Ucultx posit. for Pseudomonas On admission was started on zosyn -> now switched to PO cipro Currently sitting up in bed in NAD He is awake, appears weak, able to answer some questions. Pt is very hard of hearing. Called lab - blood cultx posit. for Ratna glabrata - asked lab to sent for sen sitivities Review of Systems Review of Systems: All systems reviewed & are unremarkable except as noted in Subjective Physical Exam Physical Exam: GENERAL: WD/WN elderly frail M in NAD, awake,hard of hearing, no respiratory distress HEENT: NC/AT. nasal cannula in place NECK : Supple CHEST : Decreased breath sounds, no tenderness HEART : rrr, systolic murmur ABDOMEN: Some distention, soft, nontender EXTREMITIES : Right BKA stump NEUROLOGIC : Awake, no facial asymmetry, marked hearing impairment, able to answer some simple questions appropriately, moves extremities SKIN: Pallor, warm Results & Data Results & Data Vital Signs (Past 12 Hours) Vital Signs Temp Pulse Pulse Resp BP Pulse Ox O2 Del Method 08/14/25 14:52 55 L 08/14/25 11:30 36.3 C L 56 L 18 133/80 96 Nasal Cannula 08/14/25 08:00 Nasal Cannula 08/14/25 07:36 57 L 08/14/25 07:35 36.3 C L 56 L 18 150/78 H 96 Nasal Cannula O2 Flow Rate 08/14/25 14:52 08/14/25 11:30 2 08/14/25 08:00 2 08/14/25 07:36 08/14/25 07:35 2 Laboratory Results 08/14/25 08/14/25 08/14/25 Range/Units 11:47 07:54 07:02 WBC 8.74 (4.8-10.8) K/ul RBC 3.48 L (4.70-6.10) M/uL Hgb 9.6 L (14.0-18.0) g/dl Hct 31.3 L (42.0-52.0) % MCV 89.9 (80.0-100.0) fL MCH 27.6 (25.0-34.0) pg MCHC 30.7 L (32.0-36.0) g/dL RDW Std Deviation 44.9 (36.4-46.3) fL RDW Coeff of Scott 13.6 (11.5-14.5) % Plt Count 202 (130-400) K/uL MPV 9.9 (9.4-12.4) fL Sodium 141 (136-145) mmol/L Potassium 4.2 (3.5-5.1) mmol/L Chloride 99 (98-107) mmol/L Carbon Dioxide 35 H (21-32) mmol/L Anion Gap 7 (3-11) BUN 56 H (6-23) mg/dl Creatinine 3.20 H (0.6-1.4) mg/dl Est Cr Clr Drug Dosing 18.1 ml/min eGFR 18.84 BUN/Creatinine Ratio 17.5 (10-20) Glucose 139 H (70-99(Fasting)) mg/dl POC Glucose 128 H 148 H (70-99) mg/dl Calcium 9.2 (8.6-10.3) mg/dl Phosphorus 4.2 (2.5-4.9) mg/dl Magnesium 2.1 (1.7-2.4) mg/dl Misc Micro Test 08/13/25 08/13/25 08/08/25 Range/Units 20:19 16:47 17:14 WBC (4.8-10.8) K/ul RBC (4.70-6.10) M/uL Hgb (14.0-18.0) g/dl Hct (42.0-52.0) % MCV (80.0-100.0) fL MCH (25.0-34.0) pg MCHC (32.0-36.0) g/dL RDW Std Deviation (36.4-46.3) fL RDW Coeff of Scott (11.5-14.5) % Plt Count (130-400) K/uL MPV (9.4-12.4) fL Sodium (136-145) mmol/L Potassium (3.5-5.1) mmol/L Chloride (98-107) mmol/L Carbon Dioxide (21-32) mmol/L Anion Gap (3-11) BUN (6-23) mg/dl Creatinine (0.6-1.4) mg/dl Est Cr Clr Drug Dosing ml/min eGFR BUN/Creatinine Ratio (10-20) Glucose (70-99(Fasting)) mg/dl POC Glucose 128 H 101 H (70-99) mg/dl Calcium (8.6-10.3) mg/dl Phosphorus (2.5-4.9) mg/dl Magnesium (1.7-2.4) mg/dl Misc Micro Test Pending Medications Administered Current Inpatient Medications Acetaminophen (Acetaminophen 325 Mg Tab) 650 mg PO QID PRN PRN Reason: pain/fever Stop: 09/07/25 20:46 Albuterol (Albut/Ipratrop 3mg/0.5mg Neb 3 Ml Vial) 3 ml NEB Q6R PRN; Protocol PRN Reason: wheezing, shortness of breath Stop: 09/10/25 10:32 Last Admin: 08/11/25 11:36 Dose: 3 ml Amiodarone HCl (Amiodarone 200 Mg Tab) 100 mg PO QAM [facility] Stop: 09/08/25 08:59 Last Admin: 08/11/25 10:05 Dose: Not Given Amitriptyline HCl (Amitriptyline Hcl 10 Mg Tab) 30 mg PO HS [facility] Stop: 09/07/25 20:59 Last Admin: 08/13/25 20:16 Dose: 30 mg Apixaban (Apixaban 2.5 Mg Tab) 2.5 mg PO [facility] Stop: 09/08/25 20:59 Last Admin: 08/14/25 08:33 Dose: 2.5 mg Atorvastatin Calcium (Atorvastatin 40 Mg Tab) 40 mg PO HS [facility] Stop: 09/07/25 20:59 Last Admin: 08/13/25 20:16 Dose: 40 mg Ciprofloxacin (Ciprofloxacin 500 Mg Tab) 500 mg PO DAILY [facility]; Protocol Stop: 08/22/25 08:59 Last Admin: 08/14/25 08:32 Dose: 500 mg Dextrose (Dextrose 50% 50 Ml Syringe) 25 - 50 ml IV UD PRN; Protocol PRN Reason: Hypoglycemia Protocol Stop: 09/07/25 20:59 Docusate Sodium (Docusate Sodium 100 Mg Cap) 100 mg PO [facility] Stop: 09/07/25 20:59 Last Admin: 08/14/25 08:34 Dose: 100 mg Finasteride (Finasteride 5 Mg Tab) 5 mg PO QAM [facility] Stop: 09/08/25 08:59 Last Admin: 08/14/25 08:32 Dose: 5 mg Glucagon (Glucagon For Inj 1 Mg Vial) 1 mg SQ UD PRN; Protocol PRN Reason: Hypoglycemia Protocol Stop: 09/07/25 20:59 Glucose (Glucose 40% Gel 15 Gm Tube) 15 - 30 gm PO UD PRN; Protocol PRN Reason: Hypoglycemia Protocol Stop: 09/07/25 20:59 Glucose (Glucose 10 Tab/Tube) 4 - 8 tab PO UD PRN; Protocol PRN Reason: Hypoglycemia Protocol Stop: 09/07/25 20:59 Guaifenesin (Guaifenesin 600 Mg Tabcr) 600 mg PO Q12 [facility] Stop: 09/12/25 09:19 Last Admin: 08/14/25 08:34 Dose: 600 mg Promethazine HCl (Phenergan) 6.25 mg in 50.25 mls @ 201 mls/hr IV Q6H PRN PRN Reason: Nausea And Vomiting Stop: 09/07/25 20:46 Caspofungin 50 mg/ Sodium (Chloride) 260 mls @ 250 mls/hr IV Q24H [facility]; Protocol Stop: 08/22/25 05:59 Last Infusion: 08/14/25 07:22 Dose: Infused Caspofungin 50 mg/ Sodium (Chloride) 260 mls @ 250 mls/hr IV TODAY@0600 ONE; Protocol Stop: 08/15/25 07:02 Insulin Aspart (Insulin Aspart Per Unit Charge) 0 units SC ACHS [facility] Stop: 09/08/25 00:56 Last Admin: 08/14/25 12:53 Dose: 4 units Insulin Glargine (Lantus Per Unit Charge) 5 units SC DAILY [facility] Stop: 09/08/25 08:59 Last Admin: 08/14/25 08:45 Dose: 5 units Magnesium Oxide (Magnesium Oxide 400 Mg Tab) 400 mg PO QAM [facility] Stop: 09/12/25 09:29 Last Admin: 08/14/25 08:34 Dose: 400 mg Metoprolol Succinate (Metoprolol Succ 25mg Ext Rel Tab) 25 mg PO BID [facility] Stop: 09/07/25 20:59 Last Admin: 08/14/25 08:32 Dose: 25 mg Miscellaneous (Carbohydrates For Hypoglycemia ) 15 - 30 gm PO UD PRN PRN Reason: Hypoglycemia Treatment Stop: 09/07/25 20:59 Oxycodone HCl (Oxycodone Hcl Ir 5 Mg Tab (Immediate Release)) 5 mg PO Q4H PRN PRN Reason: Pain Stop: 08/22/25 20:46 Pantoprazole Sodium (Pantoprazole 40 Mg Tab) 40 mg PO BID [facility] Stop: 09/07/25 20:59 Last Admin: 08/14/25 08:33 Dose: 40 mg Polyethylene Glycol (Polyethylene (Miralax) 17 Gm Pack) 17 gm PO DAILY [facility] Stop: 09/08/25 09:44 Last Admin: 08/14/25 08:34 Dose: 17 gm Pregabalin (Pregabalin 75 Mg Cap) 75 mg PO [facility] Stop: 09/07/25 20:59 Last Admin: 08/14/25 08:34 Dose: 75 mg Senna/Docusate Sodium (Docusate Sodium/Senna 50/8.6mg Tab) 1 tab PO [facility] Stop: 09/07/25 20:59 Last Admin: 08/14/25 11:35 Dose: Not Given Tamsulosin HCl (Tamsulosin Hcl 0.4 Mg Cap) 0.4 mg PO HS [facility] Stop: 09/07/25 20:59 Last Admin: 08/13/25 20:16 Dose: 0.4 mg
[2025-08-15] MEDS ORDERED: PHA DELIRIUM CONSULT PRN ×2 (00:02→21:26)
[2025-08-15 03:42] LABS: Base Excess VBG 8.2 mEq/L; HCO3 VBG 36 mmol/L; Oxygen Saturation VBG 88.4 %; PCO2 VBG 60 mmHg (38-50); PO2 VBG 55 mmHg; pH VBG 7.38 (7.36-7.41)
[2025-08-15 03:48] LABS: Hematocrit (blood only) 30.6 % (42.0-52.0); Hemoglobin 9.6 g/dl (14.0-18.0); Mean Corpuscular Hemoglobin 28.2 pg (25.0-34.0); Mean Corpuscular Volume 90.0 fL (80.0-100.0); Platelet Count 216 K/uL (130-400); RDW Standard Deviation 44.5 fL (36.4-46.3); Red Blood Count 3.40 M/uL (4.70-6.10); White Blood Count 9.96 K/ul (4.8-10.8)
[2025-08-15 04:04] LABS: Anion Gap 6.0 (3-11); Blood Urea Nitrogen 65.0 mg/dl (6-23); Calcium 9.4 mg/dl (8.6-10.3); Carbon Dioxide 34.0 mmol/L (21-32); Chloride 101.0 mmol/L (98-107); Creatinine Clr Calc Pharmacy 17.5 ml/min; Glucose 128.0 mg/dl (70-99(Fasting)); Magnesium 2.0 mg/dl (1.7-2.4); Potassium 4.0 mmol/L (3.5-5.1); Sodium 141.0 mmol/L (136-145)
[2025-08-15] MEDS: CASPOFUNGIN 50 MG in SODIUM CHLORIDE 0.9% 250 ML IV ONE (05:13)
[2025-08-15] MEDS ORDERED: CASPOFUNGIN 50 MG in SODIUM CHLORIDE 0.9% 250 ML IV ONE (06:00)
--- NOTE | 2025-08-15 14:07 | Hospitalist Progress Note ---
Date of Service August 15, 2025 Assessment & Plan (1) Encephalopathy: Plan: Encephalopathy Complicated UTI 2/2 Hanna catheter Fungemia Encephalopathy, secondary to Sepsis, infection Neuropsychotropic medications may be contributory Patient mentating better after initial intervention at the ER. Admitted to medical telemetry Follow blood cultx, urine cultx Ucultx posit for Pseudomonas Blood culture positive for yeast - C. glabrata and caspofungin was started overnight. ID consulted and discussed with At [facility], pt was started on Zosyn administered. Infectious Diseases work up (+) Yeast in blood 1/4 bottles and Urine culture (+) PsA. Plan: - Recommend switching Zosyn IV to Cipro 500 mg PO daily to complete 7 days of total antibiotic treatment for UTI. --> changed to PO cipro - Recommend continuing Caspofungin IV for now, recommend repeat fungal blood cultures every other day only if the most recent fungal blood cultures return positive. - Recommend TTE to r/o endovascular seeding --> echo obtained - "Can not exclude vegetation on aortic valve" - Recommend Ophtho consultation to r/o endophthalmitis - discussed w/ Dr. AGUILAR - ok as outpt Recently hospitalized for UTI, bacteremia, hx of Hanna On Zosyn --> now switched to PO cipro Aspiration precautions, Hold for sedation/confusion parameters for patient neuropsychotropic medications 08/09 Pt is awake, able to say that he is in the hospital, very hard of hearing. Not able to provide much history. 08/10 WBC 18k on admission now down to 8k - normalized Pt awake and communicates better when things written down, as he is very hard of hearing. 08/11 WBC 10K. Started caspofungin overnight, in addition to zosyn, as above. Pt awake, able to answer some questions appropriately 08/12 - 08/13 WBC 9.5K, pt afebrile. Awake, alert, communicates with at the bedside and me, answers appropriately. 08/14 Blood cultx - Ratna glabrata -> called lab to send for sensitivities. Repeat fungal cultx from 08/11 so far negat. 08/15 Discussed w/ ID - recommend LUCI. Will discuss w/ cardiology Chronic conditions: chronic diastolic heart failure (EF 50-55%, TTE 2024), patient on the dry side Chronic respiratory failure on home O2 as per records A-fib on Eliquis, patient NSR on the bradycardic side, decreased maintenance beta-arnel and amiodarone doses for now. DC amiodarone if with persistent bradycardia. Amio stopped. valvular heart disease (severe , mild MR/TR) PAD hypertension, stable hyperlipidemia, on statin Rx DM2 insulin requiring, well-controlled as of recent hemoglobin A1c of 6.2 last March 2025. Basal bolus insulin, ISS BG goal 110-140, carb count coverage CRI, creatinine at baseline chronic anemia, hemoglobin at baseline. Follow H&H, transfuse PRBC to maintain hemoglobin of at least 8, Hgb 7.9 yesterday, 8.5 this AM. cont. Eliquis, cont. to monitor H&H severe hearing loss, assisted hearing device/headphone useful for patient communication history of right BKA history of MRSA past tobacco abuse DVT prophylaxis. SCDs , Eliquis DNR as per patient's prior wishes. Patient' - Ms. Farhana Sebastian, contact #[phone]. Admission and Anticipated Discharge Date Admission Date: August 08, 2025 Subjective Pt seen in follow up, hospitalized last month w/ UTI and bacteremia, hx of Hanna Now admitted again as presents w/AMS, sepsis. Blood cultx - growing yeast - C. glabrata, Ucultx posit. for Pseudomonas On admission was started on zosyn -> now switched to PO cipro Currently sitting up in bed in NAD He is awake, appears weak, able to answer some questions. Pt is very hard of hearing. Blood cultx posit. for Ratna glabrata - asked lab to sent for sensitivities Discussed w/ ID - recommend to obtain LUCI Review of Systems Review of Systems: All systems reviewed & are unremarkable except as noted in Subjective Physical Exam Physical Exam: GENERAL: WD/WN elderly frail M in NAD, awake,hard of hearing, no respiratory distress HEENT: NC/AT. nasal cannula in place NECK : Supple CHEST : Decreased breath sounds, no tenderness HEART : rrr, systolic murmur ABDOMEN: Some distention, soft, nontender EXTREMITIES : Right BKA stump NEUROLOGIC : Awake, no facial asymmetry, marked hearing impairment, able to answer some simple questions appropriately, moves extremities SKIN: Pallor, warm Results & Data Results & Data Vital Signs (Past 12 Hours) Vital Signs Temp Pulse Pulse Resp BP Pulse Ox O2 Del Method 08/15/25 11:09 36.5 C 59 L 16 111/67 96 Nasal Cannula 08/15/25 10:37 62 18 95 Nasal Cannula 08/15/25 07:37 55 L 08/15/25 07:33 36.5 C 59 L 18 119/76 96 Nasal Cannula 08/15/25 03:30 36.5 C 61 18 148/81 H 98 Nasal Cannula O2 Flow Rate 08/15/25 11:09 2 08/15/25 10:37 2 08/15/25 07:37 08/15/25 07:33 2 08/15/25 03:30 2 Laboratory Results 08/15/25 08/15/25 08/15/25 Range/Units 11:38 08:10 03:32 WBC 9.96 (4.8-10.8) K/ul RBC 3.40 L (4.70-6.10) M/uL Hgb 9.6 L (14.0-18.0) g/dl Hct 30.6 L (42.0-52.0) % MCV 90.0 (80.0-100.0) fL MCH 28.2 (25.0-34.0) pg MCHC 31.4 L (32.0-36.0) g/dL RDW Std Deviation 44.5 (36.4-46.3) fL RDW Coeff of Scott 13.7 (11.5-14.5) % Plt Count 216 (130-400) K/uL MPV 9.9 (9.4-12.4) fL VBG pH 7.38 (7.36-7.41) VBG pCO2 60 H (38-50) mmHg VBG pO2 55 mmHg VBG HCO3 36 mmol/L VBG O2 Saturation 88.4 % VBG Base Excess 8.2 mEq/L Sodium 141 (136-145) mmol/L Potassium 4.0 (3.5-5.1) mmol/L Chloride 101 (98-107) mmol/L Carbon Dioxide 34 H (21-32) mmol/L Anion Gap 6 (3-11) BUN 65 H (6-23) mg/dl Creatinine 3.30 H (0.6-1.4) mg/dl Est Cr Clr Drug Dosing 17.5 ml/min eGFR 18.16 BUN/Creatinine Ratio 19.7 (10-20) Glucose 128 H (70-99(Fasting)) mg/dl POC Glucose 287 H 132 H (70-99) mg/dl Calcium 9.4 (8.6-10.3) mg/dl Phosphorus 4.6 (2.5-4.9) mg/dl Magnesium 2.0 (1.7-2.4) mg/dl 08/14/25 08/14/25 Range/Units 19:56 16:45 WBC (4.8-10.8) K/ul RBC (4.70-6.10) M/uL Hgb (14.0-18.0) g/dl Hct (42.0-52.0) % MCV (80.0-100.0) fL MCH (25.0-34.0) pg MCHC (32.0-36.0) g/dL RDW Std Deviation (36.4-46.3) fL RDW Coeff of Scott (11.5-14.5) % Plt Count (130-400) K/uL MPV (9.4-12.4) fL VBG pH (7.36-7.41) VBG pCO2 (38-50) mmHg VBG pO2 mmHg VBG HCO3 mmol/L VBG O2 Saturation % VBG Base Excess mEq/L Sodium (136-145) mmol/L Potassium (3.5-5.1) mmol/L Chloride (98-107) mmol/L Carbon Dioxide (21-32) mmol/L Anion Gap (3-11) BUN (6-23) mg/dl Creatinine (0.6-1.4) mg/dl Est Cr Clr Drug Dosing ml/min eGFR BUN/Creatinine Ratio (10-20) Glucose (70-99(Fasting)) mg/dl POC Glucose 122 H 89 (70-99) mg/dl Calcium (8.6-10.3) mg/dl Phosphorus (2.5-4.9) mg/dl Magnesium (1.7-2.4) mg/dl Medications Administered Current Inpatient Medications Acetaminophen (Acetaminophen 325 Mg Tab) 650 mg PO QID PRN PRN Reason: pain/fever Stop: 09/07/25 20:46 Albuterol (Albut/Ipratrop 3mg/0.5mg Neb 3 Ml Vial) 3 ml NEB Q6R PRN; Protocol PRN Reason: wheezing, shortness of breath Stop: 09/10/25 10:32 Last Admin: 08/15/25 10:37 Dose: 3 ml Amiodarone HCl (Am[facility]arone 200 Mg Tab) [facility]: 09/08/25 08:59 Last Admin: 08/11/25 10:05 Dose: Not Given Amitriptyline HCl (Amitriptyline Hcl 10 Mg Tab) 30 mg PO [facility] Stop: 09/07/25 20:59 Last Admin: 08/14/25 20:26 Dose: 30 mg Apixaban (Apixaban 2.5 Mg Tab) 2.5 mg PO [facility] Stop: 09/08/25 20:59 Last Admin: 08/15/25 09:13 Dose: 2.5 mg Atorvastatin Calcium (Atorvastatin 40 Mg Tab) 40 mg PO [facility] Stop: 09/07/25 20:59 Last Admin: 08/14/25 20:26 Dose: 40 mg Ciprofloxacin (Ciprofloxacin 500 Mg Tab) 500 mg PO DAILY [facility]; Protocol Stop: 08/22/25 08:59 Last Admin: 08/15/25 09:11 Dose: 500 mg Dextrose (Dextrose 50% 50 Ml Syringe) 25 - 50 ml IV UD PRN; Protocol PRN Reason: Hypoglycemia Protocol Stop: 09/07/25 20:59 Docusate Sodium (Docusate Sodium 100 Mg Cap) 100 mg PO [facility] Stop: 09/07/25 20:59 Last Admin: 08/15/25 09:13 Dose: 100 mg Finasteride (Finasteride 5 Mg Tab) [facility] Stop: 09/08/25 08:59 Last Admin: 08/15/25 09:14 Dose: 5 mg Glucagon (Glucagon For Inj 1 Mg Vial) 1 mg SQ UD PRN; Protocol PRN Reason: Hypoglycemia Protocol Stop: 09/07/25 20:59 Glucose (Glucose 40% Gel 15 Gm Tube) 15 - 30 gm PO UD PRN; Protocol PRN Reason: Hypoglycemia Protocol Stop: 09/07/25 20:59 Glucose (Glucose 10 Tab/Tube) 4 - 8 tab PO UD PRN; Protocol PRN Reason: Hypoglycemia Protocol Stop: 09/07/25 20:59 Guaifenesin (Guaifenesin 600 Mg Tabcr) 600 mg PO Q12 [facility] Stop: 09/12/25 09:19 Last Admin: 08/15/25 09:12 Dose: 600 mg Promethazine HCl (Phenergan) 6.25 mg in 50.25 mls @ 201 mls/hr IV Q6H PRN PRN Reason: Nausea And Vomiting Stop: 09/07/25 20:46 Caspofungin 50 mg/ Sodium (Chloride) 260 mls @ 250 mls/hr IV Q24H [facility]; Protocol Stop: 08/22/25 05:59 Last Infusion: 08/14/25 07:22 Dose: Infused Insulin Aspart (Insulin Aspart Per Unit Charge) 0 units SC ACHS [facility] Stop: 09/08/25 00:56 Last Admin: 08/15/25 13:22 Dose: 10 units Insulin Glargine (Lantus Per Unit Charge) 5 units SC DAILY [facility] Stop: 09/08/25 08:59 Last Admin: 08/15/25 09:17 Dose: 5 units Magnesium Oxide (Magnesium Oxide 400 Mg Tab) 400 mg PO QAM [facility] Stop: 09/12/25 09:29 Last Admin: 08/15/25 09:12 Dose: 400 mg Metoprolol Succinate (Metoprolol Succ 25mg Ext Rel Tab) 25 mg PO BID [facility] Stop: 09/07/25 20:59 Last Admin: 08/15/25 09:13 Dose: Not Given Miscellaneous (Carbohydrates For Hypoglycemia ) 15 - 30 gm PO UD PRN PRN Reason: Hypoglycemia Treatment Stop: 09/07/25 20:59 Oxycodone HCl (Oxycodone Hcl Ir 5 Mg Tab (Immediate Release)) 5 mg PO Q4H PRN PRN Reason: Pain Stop: 08/22/25 20:46 Pantoprazole Sodium (Pantoprazole 40 Mg Tab) 40 mg PO BID [facility] Stop: 09/07/25 20:59 Last Admin: 08/15/25 09:12 Dose: 40 mg Polyethylene Glycol (Polyethylene (Miralax) 17 Gm Pack) 17 gm PO DAILY [facility] Stop: 09/08/25 09:44 Last Admin: 08/15/25 09:13 Dose: 17 gm Pregabalin (Pregabalin 75 Mg Cap) 75 mg PO [facility] Stop: 09/07/25 20:59 Last Admin: 08/15/25 09:00 Dose: Not Given Senna/Docusate Sodium (Docusate Sodium/Senna 50/8.6mg Tab) 1 tab PO [facility] Stop: 09/07/25 20:59 Last Admin: 08/15/25 09:13 Dose: 1 tab Tamsulosin HCl (Tamsulosin Hcl 0.4 Mg Cap) 0.4 mg PO HS [facility] Stop: 09/07/25 20:59 Last Admin: 08/14/25 20:26 Dose: 0.4 mg
--- NOTE | 2025-08-15 17:32 | Communication Note ---
Date of Service: August 15, 2025 Patient was seen and examined. Patient referred for evaluation for possible transesophageal echocardiogram. Indications: Ratna bacteremia Previous echocardiograms reviewed including 08/12/2025, 07/03/2025, 04/21/2025, 11/21/2024. All studies have demonstrated a thickened and calcified aortic valve with borderline severe aortic stenosis, mild aortic insufficiency., Mild mitral and tricuspid insufficiency. Most recent study of 08/12/2025 compared to prior studies without significant change or visualized vegetation on transthoracic study. Patient with multiple morbidities and not felt to be surgical candidate for valvular replacement High risk for transesophageal echocardiography due to encephalopathy and difficulties with communication. Do not expect additional information to be gained from transesophageal echocardiography
[2025-08-16 07:24] LABS: Hematocrit (blood only) 28.4 % (42.0-52.0); Hemoglobin 8.9 g/dl (14.0-18.0); Mean Corpuscular Hemoglobin 28.1 pg (25.0-34.0); Mean Corpuscular Volume 89.6 fL (80.0-100.0); Platelet Count 260 K/uL (130-400); RDW Standard Deviation 44.6 fL (36.4-46.3); Red Blood Count 3.17 M/uL (4.70-6.10); White Blood Count 11.26 K/ul (4.8-10.8)
[2025-08-16 07:52] LABS: Anion Gap 5.0 (3-11); Blood Urea Nitrogen 65.0 mg/dl (6-23); Calcium 9.4 mg/dl (8.6-10.3); Carbon Dioxide 35.0 mmol/L (21-32); Chloride 100.0 mmol/L (98-107); Creatinine Clr Calc Pharmacy 19.3 ml/min; Glucose 112.0 mg/dl (70-99(Fasting)); Magnesium 2.3 mg/dl (1.7-2.4); Potassium 4.0 mmol/L (3.5-5.1); Sodium 140.0 mmol/L (136-145)
--- NOTE | 2025-08-16 10:54 | Hospitalist Progress Note ---
Date of Service August 16, 2025 Assessment & Plan (1) Encephalopathy: Plan: chronic diastolic heart failure (EF 50-55%, TTE 2024), A-fib on Eliquis, valvular heart disease (severe , mild MR/TR), PAD, hypertension, hyperlipidemia, chronic respiratory failure on home O2, history of aspiration risk, recurrent UTIs secondary to chronic indwelling Hanna catheter, BPH, hydronephrosis, DM2 insulin requiring, CRI (baseline creatinine 3), chronic anemia (baseline hemoglobin of 8-9), severe hearing loss, history chronic LE venous ulcers, history of right BKA secondary to osteomyelitis, hoarding behavior as per records/hx of obsessional thoughts/acts as per records, history of MRSA, past tobacco abuse. #Ratna glabrata fungemia -ID evaluated -Repeat fungal cx NGTD -Cardio consulted, no plans for LUCI -Unclear source Plan -Continue caspofungin through 08/25 per ID -OP Ophtho eval -Will need SNF. possibly back to [facility] in the next day or two #UTI -Psuedomonas UTI -Completed abx #Sinus oscar -Amio was already DC -DC toprol BID to daily #Metabolic encephalopathy -Due to infection -Resolved #Chronic Hanna Chronic conditions: chronic diastolic heart failure (EF 50-55%, TTE 2024) Chronic respiratory failure on home O2 as per records pA-fib on Eliquis, Amio stopped. and toprol decreased to daily valvular heart disease (severe , mild MR/TR) PAD hypertension, stable hyperlipidemia, on statin Rx DM2 insulin requiring, well-controlled as of recent hemoglobin A1c of 6.2 last March 2025. Basal bolus insulin, ISS BG goal 110-140, carb count coverage CKD4- at baseline. avoid nephrotoxic agents if possible chronic anemia, hemoglobin at baseline. No s/s acute blood loss history of right BKA history of MRSA past tobacco abuse DVT prophylaxis. SCDs , Eliquis DNR as per patient's prior wishes. Patient' - Ms. Farhana Sebastian, contact #[phone]. I spent a total of 55 minutes coordinating, documenting, and providing care for this patient excluding time spent in the performance of separately billed services. This included personally reviewing all current laboratories and imaging studies, medical reconciliation, outpatient chart review and discussion with specialists Admission and Anticipated Discharge Date Admission Date: August 08, 2025 Subjective Seen and examined at bedside. Feeling well and has no specific complaints. d/w at bedside as well and answered all questions Physical Exam Physical Exam: Vitals and labs reviewed General: elderly and chronically ill appearing in NAD HEENT: EOMI, PERRLA Neck: Supple Cardiac: RRR no rubs gallops or murmurs Lungs: CTA no rhonchi wheezing or rales Abd: S NT ND BS positive : Hanna MSK: Full ROM. No obvious deformities Ext: No Edema cyanosis Skin: Warm, Dry Neuro: extremely hard of hearing No focal deficits. Psych: Normal Mood Results & Data Results & Data Vital Signs (Past 12 Hours) Vital Signs Temp Pulse Pulse Resp BP Pulse Ox O2 Del Method 08/16/25 10:14 Nasal Cannula 08/16/25 07:45 53 L 08/16/25 07:12 35.8 C L 53 L 20 124/75 100 Nasal Cannula 08/16/25 03:27 36.6 C 63 18 133/75 97 Nasal Cannula 08/16/25 01:44 65 O2 Flow Rate 08/16/25 10:14 2 08/16/25 07:45 08/16/25 07:12 2 08/16/25 03:27 2 08/16/25 01:44 Laboratory Results Abnormal lab results 08/15/25 08/15/25 08/15/25 Range/Units 11:38 17:20 20:06 WBC (4.8-10.8) K/ul RBC (4.70-6.10) M/uL Hgb (14.0-18.0) g/dl Hct (42.0-52.0) % MCHC (32.0-36.0) g/dL Carbon Dioxide (21-32) mmol/L BUN (6-23) mg/dl Creatinine (0.6-1.4) mg/dl BUN/Creatinine Ratio (10-20) Glucose (70-99(Fasting)) mg/dl POC Glucose 287 H 106 H 125 H (70-99) mg/dl 08/16/25 08/16/25 Range/Units 06:11 08:05 WBC 11.26 H (4.8-10.8) K/ul RBC 3.17 L (4.70-6.10) M/uL Hgb 8.9 L (14.0-18.0) g/dl Hct 28.4 L (42.0-52.0) % MCHC 31.3 L (32.0-36.0) g/dL Carbon Dioxide 35 H (21-32) mmol/L BUN 65 H (6-23) mg/dl Creatinine 2.99 H D (0.6-1.4) mg/dl BUN/Creatinine Ratio 21.7 H (10-20) Glucose 112 H (70-99(Fasting)) mg/dl POC Glucose 121 H (70-99) mg/dl
[2025-08-16] MEDS ORDERED: PHA DELIRIUM CONSULT PRN (22:26)
[2025-08-17 08:30] VITALS: BP 166/84; RESP 20; TEMP 96.6; O2SAT 97
[2025-08-17] MEDS: METOPROLOL SUCC 25MG EXT REL TAB PO SCH (09:58)
--- NOTE | 2025-08-17 10:27 | Discharge Summary ---
Discharge Summary Date of Service August 17, 2025 Principal Dx & Hospital Course #1 = Principal Diagnosis (1) Encephalopathy: chronic diastolic heart failure (EF 50-55%, TTE 2024), A-fib on Eliquis, valvular heart disease (severe , mild MR/TR), PAD, hypertension, hyperlipidemia, chronic respiratory failure on home O2, history of aspiration risk, recurrent UTIs secondary to chronic indwelling Hanna catheter, BPH, hydronephrosis, DM2 insulin requiring, CRI (baseline creatinine 3), chronic anemia (baseline hemoglobin of 8-9), severe hearing loss, history chronic LE venous ulcers, history of right BKA secondary to osteomyelitis, hoarding behavior as per records/hx of obsessional thoughts/acts as per records, history of MRSA, past tobacco abuse who presents with metabolic encephalopathy. He was diagnosed with psuedomonas UTI and started on zosyn. He completed abx regimen. Blood cultures also grew Ratna glabrata. ID was consulted. He was started on caspofungin. Repeat cultures NGTD. ID recommended 2 weeks of caspofungin. Source unclear. ID also recommended OP ophtho evaluation in the next few weeks. He clinically improved. Encephalopathy resolved. He was bradycardic during his hospitalization. His amiodarone was DC and his toprol dose decreased to daily. Bradycardia resolved. D/w who agrees with DC back to SNF today. vitals and labs are stable for DC to SNF. #Ratna glabrata fungemia -ID evaluated -Repeat fungal cx NGTD -Cardio consulted, no plans for LUCI -Unclear source Plan -Continue caspofungin through 08/25 per ID -OP Ophtho eval #UTI -Psuedomonas UTI -Completed abx #Sinus oscar -Amio was already DC -DC toprol BID to daily #Metabolic encephalopathy -Due to infection -Resolved #Chronic Hanna Chronic conditions: chronic diastolic heart failure (EF 50-55%, TTE 2024) Chronic respiratory failure on home O2 as per records pA-fib on Eliquis, Amio stopped. and toprol decreased to daily valvular heart disease (severe , mild MR/TR) PAD hypertension, stable hyperlipidemia, on statin Rx DM2 insulin requiring, well-controlled as of recent hemoglobin A1c of 6.2 last March 2025. Basal bolus insulin, ISS BG goal 110-140, carb count coverage CKD4- at baseline. avoid nephrotoxic agents if possible chronic anemia, hemoglobin at baseline. No s/s acute blood loss history of right BKA history of MRSA past tobacco abuse DVT prophylaxis. SCDs , Eliquis DNR as per patient's prior wishes. Patient' - Ms. Farhana Sebastian, contact #[phone]. I spent a total of 54 minutes coordinating, documenting, and providing care for this patient excluding time spent in the performance of separately billed services. This included personally reviewing all current laboratories and imaging studies, medical reconciliation, outpatient chart review and discussion with specialists Notes For Next Care Provider Medication Changes From Visit amio dc toprol decreased to daily Caspofungin as above Admission HPI Per Admitting Provider History obtained from patient, family, and records. Limited history from patient secondary to severe hearing impairment. Medical history significant for chronic diastolic heart failure (EF 50-55%, TTE 2024), A-fib on Eliquis, valvular heart disease (severe , mild MR/TR), PAD, hypertension, hyperlipidemia, chronic respiratory failure on home O2, history of aspiration risk, recurrent UTIs secondary to chronic indwelling Hanna catheter, BPH, hydronephrosis, DM2 insulin requiring, CRI (baseline creatinine 3), chronic anemia (baseline hemoglobin of 8-9), severe hearing loss, history chronic LE venous ulcers, history of right BKA secondary to osteomyelitis, hoarding behavior as per records/hx of obsessional thoughts/acts as per records, history of MRSA, past tobacco abuse. Recent confinement last month for sepsis secondary to UTI (Proteus/procidentia/Enterococcus). Patient discharged back to [facility] for rehab. Patient with cough symptoms for about a week. Not sure about aspiration. Denies chest pain, SOB. Patient noted to have blood clots from Hanna catheter drainage today. Patient more confused than usual. Patient complaining of achy abdominal pain. No headache, no emesis. SBP 70s, transient hypoxemia in the 80s. Patient brought to ER for evaluation, Zosyn administered at the ER. Patient currently more awake and comfortable. Medical History as above Surgical History : Mastoidectomy, shoulder surgery, foot surgery, right BKA Family History : DM, lung cancer Personal/Social history : Past tobacco abuse, occasional EtOH intake, retired from [employer] employment Discharge Exam Vitals and labs reviewed General: elderly and chronically ill appearing in NAD HEENT: EOMI, PERRLA Neck: Supple Cardiac: RRR no rubs gallops or murmurs Lungs: CTA no rhonchi wheezing or rales Abd: S NT ND BS positive : Hanna MSK: Full ROM. No obvious deformities Ext: No Edema cyanosis Skin: Warm, Dry Neuro: extremely hard of hearing No focal deficits. Psych: Normal Mood Updated Medication List Medication Instructions Recorded Confirmed Type insulin glargine 100 unit/mL (3 5 unit subcut HS 04/07/24 08/08/25 History mL) subcutaneous pen (Lantus Solostar U-100 Insulin) acetaminophen 325 mg tablet 650 mg PO Q6H PRN Fever greater 03/15/25 08/08/25 History (Tylenol) than 100/Pain amitriptyline 10 mg tablet 30 mg PO HS 03/15/25 08/08/25 History atorvastatin 40 mg tablet 40 mg PO HS 03/15/25 08/08/25 History docusate sodium 100 mg tablet 100 mg PO [facility] 03/15/25 08/08/25 History finasteride 5 mg tablet 5 mg PO QAM 03/15/25 08/08/25 History glucagon 1 mg solution for 1 mg IM DIRECTED PRN 03/15/25 08/08/25 History injection (Glucagon Emergency Kit) Hypoglycemia insulin lispro 100 unit/mL 1 sliding scale dose subcut 03/15/25 08/08/25 History subcutaneous solution (Humalog USEASDIRECTD U-100 Insulin) insulin lispro 100 unit/mL 2 unit subcut TIDM 03/15/25 08/08/25 History subcutaneous solution (Humalog U-100 Insulin) pregabalin 75 mg capsule 75 mg PO [facility] 03/15/25 08/08/25 History sennosides 8.6 mg-docusate sodium 1 tab PO [facility] constipation 03/15/25 08/08/25 History 50 mg tablet (Senokot-S) tamsulosin 0.4 mg capsule 0.4 mg PO HS 03/15/25 08/08/25 History pantoprazole 40 mg tablet,delayed 40 mg PO BID #60 tabs 03/20/25 08/08/25 Rx release amiodarone 200 mg tablet 200 mg PO QAM 08/08/25 08/08/25 History apixaban 2.5 mg tablet (Eliquis) 2.5 mg PO [facility] 08/08/25 08/08/25 History furosemide 20 mg tablet (Lasix) 20 mg PO QAM 08/08/25 08/08/25 History ipratropium 0.5 mg-albuterol 3 mg 3 ml inhalation Q4 PRN Shortness 08/08/25 08/08/25 History (2.5 mg base)/3 mL nebulization Of Breath Or Wheezing soln metoprolol succinate 50 mg 50 mg PO [facility] 08/08/25 08/08/25 History tablet,extended release 24 hr metoprolol succinate 25 mg 25 mg PO DAILY 30 days #30 tabs 08/17/25 Rx tablet,extended release 24 hr Hospital Stay Data Consultations 08/08/25 19:26 ED Decision to Admit Stat 08/11/25 07:28 Consult Infectious Diseases Routine Diagnostic Imagining Performed 08/08/25 16:56 CT head/brain wo con Stat 08/08/25 20:35 CT Abd and Pelvis [CT abd pelvis wo con] Stat CT chest diagnostic wo con Stat Pending Results Patient Have Any Pending Studies at Discharge: No Discharge Instructions Given to Patient (Per Discharging Provider) Continue caspofungin through 08/25 per infectious disease. Please see ophthalmology in the next few weeks for an eye exam due to fungemia. Total Time Total Time Spent Total Time Spent (In Minutes): 54
[2025-08-17 12:33] VITALS: PULSE 64
--- NOTE | 2025-08-23 05:20 | Coding Query ---
CODING QUERY To promote full compliance with coding requirements relating to patient care, provider participation is requested in all cases of labor relations consultant uncertainty. Please assist us with the question(s) below: In the record, it states that the patient has an UTI. Please clarify below the cause of the UTI if applicable. Thank you. (x ) The chronic yee was the cause of the UTI. ( ) Other urinary cath/device was the cause of the UTI. ( ) UTI, unspecified cause. ( ) Self-catheterization was the cause of the UTI. ( ) Other (Specify): Principal Diagnosis: "that condition established after study, to be chiefly responsible for occasioning the admission of the patient to the hospital for care." Co-Existing Principal Diagnosis: "when two or more diagnoses equally meet the criteria for principal diagnosis as determined by the circumstances of admission, diagnostic work up, and/or therapy provided, and the Alphabetic Index, Tabular List, or another coding guideline does not provide sequencing direction, any one of the diagnoses may be sequenced first." "When the physician has documented what appears to be a current diagnosis in the body of the record, but has not included the diagnosis in the final diagnostic statement, the physician should be asked whether the diagnosis should be added." (Source Coding [facility] 2 QTR90. p3-4) JEFF
== END 2025-08-17 13:48 | DRG 698 ==
LOC: ED 16:46 → SUATTDRO 20:37 → 2N 20:37

== ENCOUNTER 2025-09-29 09:36 | Inpatient (IN) ==
--- NOTE | 2025-09-29 09:58 | Emergency Department Note ---
Impression & Plan Catheter-associated urinary tract infection, Acute kidney injury superimposed on CKD, Severe hearing loss ED Provider Note Provider: John Phillips MD CHIEF COMPLAINT: Right lower quadrant pain, mild hypoxia HISTORY OF PRESENT ILLNESS: Patient is a 80-year-old gentleman extensive complex past medical history including diastolic heart failure, A-fib on Eliquis, valvular heart disease, PAD, hypertension, chronic 1/2 L oxygen usage, recurrent aspiration and UTIs with a chronic indwelling Hanna, diabetes, and severe hearing loss as well as prior right BKA for infection presenting here today via ambulance from [facility] where he resides. Patient evidently was complaining of some right lower quadrant pain today. They also noted his oxygen was 89% on his 1/2 L and increased him to 2 L. No fevers or nausea or vomiting reported per EMS from the facility. Patient himself not a great historian. Supposedly he is quite hard of hearing but he seems like it is difficult to get him to answer any questions even with raised voices at him. Does awaken however at times and seemingly follows some commands at times. Does not appear confused or hallucinating responding to external stimuli. No falls reported. Records with him indicate the patient did have a urine culture several days ago that did not grow. PAST MEDICAL HISTORY: As noted above MEDICATIONS: Reviewed medications from his facility. SOCIAL HISTORY: Resides at [facility] PHYSICAL EXAM: GENERAL: alert to loud verbal stimuli occasionally but not a great historian in no acute distress on stretcher Head: normocephalic and atraumatic EYES: No injection, discharge or icterus. PERRL, EOMI. NECK: Trachea midline. Supple. ENT: Mucous membranes pink and moist. LUNGS: Airway patent. No retractions. Breath sounds clear with good air entry bilaterally. HEART: Regular rate and rhythm. No chest wall tenderness ABDOMEN: Soft and non-tender, without guarding or rebound. No masses obvious appreciated. Chronic right Hanna in place with leaking urine. SKIN: Acyanotic, warm, dry, without rashes EXTREMITIES: Without swelling, tenderness or deformity with a right BKA well- healed stump in place. NEUROLOGICAL: Moves and withdraws in all 4 extremities. Seemingly quite hard of hearing but will occasionally answer questions. No aphasia. No facial droop or slurred speech. EK beats per minute. Normal sinus rhythm. Right bundle branch left fascicular block is noted. No clear acute ST segment elevation with some anterior T wave inversions noted. QTc 500. CONTINUOUS CARDIAC MONITORING: was ordered and showed a heart rate of 70s to 80s bpm in normal sinus rhythm Patient's laboratory studies and imaging reviewed. Differential includes Renal colic, UTI, appendicitis, diverticulitis, mesenteric ischemia, aortic pathology, infections, inflammatory bowel disease, PUD, biliary pathology, as well as other pathologies. IMPRESSION/MEDICAL DECISION MAKING: Patient quite hard of hearing hard to get good history from him. Does not seem like he is that drowsy however and seems to be moving everything. No trauma reported or fevers. May have slightly increased ox requirement and this right lower quadrant pain reported. Does not seem prickly tender on exam. History of recurrent UTIs in the past has chronic Hanna. It was changed upon arrival here by nursing staff. Sample was sent to the lab of the urine. Blood work and cultures and lactate are sent. Reviewed prior microbiology. Will complete a CT scan of the head, chest, abdomen pelvis without contrast given his renal dysfunction given that he is not able to give me a good history (and I cannot conclusively say this is just his hearing), CT of the chest given the slight increased oxygen requirement, and a CT abdomen pelvis given his reported pain in the lower right quadrant. Blood work with borderline leukocytosis of 11 today. Stable to slightly improved hemoglobin of 10.9. No severe electrolyte abnormalities. Chronic CKD noted with a creatinine 3 to somewhat higher than baseline at 2.6. Given gentle IV fluid bolus. Troponin 23 just above prior baseline in the mid teens. Doubt ACS. Procalcitonin 0.33 and urine appears concerning for infection. In review of prior microbiology cover with a dose of cefepime. Discussed with hospitalist for admission. CT head and chest without acute abnormalities such as bleed or evidence of obvious stroke. Atelectasis the lungs but no pneumonia. CT of the abdomen pelvis shows inflammation of the bladder as well as some continued hydronephrosis and inflammation towards the left kidney but no mass or stone reported by radiology. Patient does not appear an extremis. Again covered with antibiotics and given his complex history and some CESAR will bring in for further care here. DIAGNOSIS: Complicated UTI, abdominal pain, weakness, 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 DISPOSITION: Hospitalist will evaluate Past Med/Surg History Problem List (Updated 09/29/25 @ 14:46 by John Phillips M.D.) Acute kidney injury superimposed on CKD (Acute) Elevated troponin Acute metabolic encephalopathy Other obstructive and reflux uropathy (Chronic) Fungemia CESAR (acute kidney injury) (Acute) Anemia (Acute) Pneumonia (Acute) Acute alteration in mental status (Acute) Sepsis Shock Acute and chronic respiratory failure with hypoxia (Acute) Septic shock (Acute) Hypotension Chronic retention of urine (Chronic) BPH w urinary obs/LUTS (Chronic) Acute heart failure with preserved ejection fraction Aortic stenosis Atrial fibrillation with rapid ventricular response (Acute) Acute CHF (Acute) Acute respiratory failure with hypoxia (Acute) Acute kidney injury (CESAR) with acute tubular necrosis (ATN) Acute kidney injury superimposed on CKD S/P BKA (below knee amputation) unilateral Weakness (Acute) Symptomatic anemia (Acute) Catheter-associated urinary tract infection (Chronic) Diabetic foot ulcers Closed compression fracture of thoracic vertebra (Acute) Lymphedema (Chronic) Fall (Acute) Open wound of finger (Acute) Diabetic peripheral neuropathy associated with type 2 diabetes mellitus HTN (hypertension) Diabetic ulcer of right foot (Acute) Charcot foot due to diabetes mellitus Closed T12 fracture (Acute) Diabetic ulcer of left heel (Acute) Hyponatremia (Acute) Otitis externa of left ear Chronic indwelling Hanna catheter (Chronic) Otitis externa Ambulatory dysfunction Severe aortic stenosis Chronic heart failure with preserved ejection fraction (HFpEF) Ear drum perforation Severe hearing loss (Acute) Open wound of abdomen (Acute) Homeless (Acute) Edema of both legs Hypertension Paroxysmal atrial fibrillation Diabetes mellitus, type II (Chronic) Dyslipidemia Medical History Encephalopathy Pyelonephritis Hydronephrosis, bilateral Asymptomatic hypertensive urgency Bilateral lower leg cellulitis Blister of finger Maggot infestation CESAR (acute kidney injury) Surgical History History of ear surgery age 19, mastoid H/O shoulder surgery S/P foot surgery, left Family History Brother Diabetes Social History Smoking Status: Unknown if ever smoked Tobacco Type: Cigarettes Second Hand Exposure: No; Do You Dip or Chew Tobacco: No; Hx Alcohol Use: No Hx Substance Use: No Preferred Language: Lao Communication Ability: Impaired Communication Ability Comment: Hearing Loss. Visual Impairment: Limited Hearing Ability: Use of Hearing Aid [employer] Manager Required: No Beliefs That Will Affect Care: None marital status: Current Living Situation: Personal Care Facility Current Living Situation Comment: [facility] current occupational status: retired How many Children do You have: 3 Feels Safe at Home: Yes during the past year weight has: remained stable Dental Care, Regularly: No Physical Activity Frequency: Does not Exercise Assistive Devices: Oxygen - Continuous Allergies Allergies Allergy/AdvReac Type Severity Reaction Status Date / Time lisinopril Allergy Severe Swelling Verified 08/30/25 13:16 of Face/Lips/Tongue hydrochlorothiazide Allergy Unknown Unknown - Unverified 08/30/25 13:16 On file w/ [facility] Home Meds Home Medications Medication Instructions Recorded Confirmed insulin glargine 100 unit/mL (3 5 unit subcut HS 04/07/24 09/29/25 mL) subcutaneous pen (Lantus Solostar U-100 Insulin) amitriptyline 10 mg tablet 30 mg PO HS 03/15/25 09/29/25 atorvastatin 40 mg tablet 40 mg PO HS 03/15/25 09/29/25 docusate sodium 100 mg tablet 100 mg PO AMHS 03/15/25 09/29/25 finasteride 5 mg tablet 5 mg PO QAM 03/15/25 09/29/25 glucagon 1 mg solution for 1 mg IM DIRECTED PRN 03/15/25 09/29/25 injection (Glucagon Emergency Kit) Hypoglycemia pregabalin 75 mg capsule 75 mg PO AMHS 03/15/25 09/29/25 sennosides 8.6 mg-docusate sodium 1 tab PO AMHS constipation 03/15/25 09/29/25 50 mg tablet (Senokot-S) tamsulosin 0.4 mg capsule 0.4 mg PO HS 03/15/25 09/29/25 furosemide 20 mg tablet (Lasix) 20 mg PO QAM 08/08/25 09/29/25 ipratropium 0.5 mg-albuterol 3 mg 3 ml inhalation Q4 PRN Shortness 08/08/25 09/29/25 (2.5 mg base)/3 mL nebulization Of Breath Or Wheezing soln apixaban 2.5 mg tablet (Eliquis) 2.5 mg PO BID 09/29/25 09/29/25 bisacodyl 10 mg rectal suppository 10 mg OR DAILY PRN Constipation 09/29/25 09/29/25 (Dulcolax (bisacodyl)) insulin aspart U-100 100 unit/mL See Rx Instructions .Route .COMPLEX 09/29/25 09/29/25 subcutaneous solution levothyroxine 75 mcg tablet 75 mcg PO DAILYBB 09/29/25 09/29/25 magnesium hydroxide 400 mg/5 mL 30 ml PO DAILY PRN Constipation 09/29/25 09/29/25 oral suspension (Milk of Magnesia) menthol 0.44 %-zinc oxide 20 % 1 ea topical BID 09/29/25 09/29/25 topical ointment sodium phosphates 19 gram-7 118 ml OR DAILY PRN Constipation 09/29/25 09/29/25 gram/118 mL enema (Fleet Enema) Previous Rx's Medication Instructions Recorded pantoprazole 40 mg tablet,delayed 40 mg PO BID #60 tabs 03/20/25 release Results & Data (ED) Vital Signs Vital Signs - 24 hr 09/29/25 09:50 09/29/25 09:55 09/29/25 10:01 Temperature 37.1 C Temperature Source Oral Pulse Rate 85 Pulse Rate [Right Finger] 90 Respiratory Rate 20 Respiratory Effort / Characteristics Respiratory Depth Respiratory Pattern Regular Blood Pressure [Right Arm] 134/95 Blood Pressure Mean [Right Arm] 108 Pulse Oximetry 93 Oxygen Delivery Method Nasal Cannula Oxygen Flow Rate 2 Sepsis Recent Fever Within 48 Hours No Sepsis New/Unexplained Change in Mental Status No Sepsis Action Taken by Nursing No Action Required 09/29/25 10:55 09/29/25 12:42 09/29/25 14:09 Temperature Temperature Source Pulse Rate 74 Pulse Rate [Right Finger] 82 78 Respiratory Rate 18 20 Respiratory Effort / Characteristics Non-Labored Spontaneous Non-Labored Spontaneous Respiratory Depth Normal Normal Respiratory Pattern Regular Regular Blood Pressure [Right Arm] 115/78 109/65 Blood Pressure Mean [Right Arm] 90 79 Pulse Oximetry 99 96 Oxygen Delivery Method Nasal Cannula Nasal Cannula Oxygen Flow Rate 2 2 Sepsis Recent Fever Within 48 Hours Sepsis New/Unexplained Change in Mental Status Sepsis Action Taken by Nursing Laboratory Data 09/29/25 09:58 09/29/25 09:58 Lab Results 09/29/25 09/29/25 09/29/25 Range/Units 09:58 11:53 13:42 WBC 11.02 H (4.8-10.8) K/ul RBC 3.68 L (4.70-6.10) M/uL Hgb 10.9 L (14.0-18.0) g/dL Hct 31.9 L (42.0-52.0) % MCV 86.7 (80.0-100.0) fL MCH 29.6 (25.0-34.0) pg MCHC 34.2 (32.0-36.0) g/dL RDW Std Deviation 42.0 (36.4-46.3) fL RDW Coeff of Scott 13.3 (11.5-14.5) % Plt Count 244 (130-400) K/uL MPV 10.6 (9.4-12.4) fL Immature Gran % (Auto) 0.2 % Neut % (Auto) 75.7 % Lymph % (Auto) 13.9 % Barber % (Auto) 8.9 % Eos % (Auto) 0.9 % Baso % (Auto) 0.4 % Neut # (Auto) 8.35 H (1.40-6.50) K/uL Lymph # (Auto) 1.53 (1.20-3.40) K/uL Barber # (Auto) 0.98 H (0.11-0.59) K/uL Eos # (Auto) 0.10 (0.00-0.50) K/uL Baso # (Auto) 0.04 (0.00-0.20) K/uL Immature Gran # (Auto) 0.02 (0.01-0.20) K/uL PT 12.8 H (9.0-12.0) Seconds INR 1.2 H (0.9-1.1) Sodium 138 (136-145) mmol/L Potassium 3.7 (3.5-5.1) mmol/L Chloride 98 (98-107) mmol/L Carbon Dioxide 29 (21-32) mmol/L Anion Gap 11 (3-11) BUN 64 H (6-23) mg/dl Creatinine 3.20 H (0.6-1.4) mg/dl Est Cr Clr Drug Dosing 17.9 ml/min eGFR 18.84 BUN/Creatinine Ratio 20.0 (10-20) Glucose 200 H (70-99(Fasting)) mg/dl POC Glucose 206 H (70-99) mg/dl Lactate 1.1 (0.4-2.0) mmol/L Calcium 8.7 (8.6-10.3) mg/dl Magnesium 2.0 (1.7-2.4) mg/dl Total Bilirubin 0.7 (0.2-1.0) mg/dl AST 12 L (13-39) U/L ALT 10 (7-52) U/L Alkaline Phosphatase 71 (34-104) U/L Troponin I High Sens 23.3 H 24.4 H (0-20) pg/ml Total Protein 7.8 (6.0-8.3) gm/dl Albumin 3.5 (3.4-5.0) gm/dl Globulin 4.3 H (2.5-4.0) gm/dl Albumin/Globulin Ratio 0.8 L (0.9-2) Procalcitonin 0.33 (0-0.5) ng/ml TSH 3.658 (0.300-4.500) uIu/ml Urine Color Yellow Urine Appearance Turbid A (Clear) Urine pH >= 9.0 H (4.5-7.5) Ur Specific [place] 1.013 (1.000-1.030) Urine Protein 3+ H (Negative) Urine Glucose (UA) Negative (Negative) Urine Ketones Negative (Negative) Urine Blood 3+ H (Negative) Urine Nitrite Positive A (Negative) Urine Bilirubin Negative (Negative) Urine Urobilinogen Negative (Negative) Ur Leukocyte Esterase 3+ H (Negative) Urine WBC (Auto) >50 H (0-5) /hpf Urine RBC (Auto) >20 H (0-2) /hpf U Hyaline Cast (Auto) 0-2 (0-2) /lpf U Epithel Cells (Auto) 0-2 (0-2) /hpf Urine Bacteria (Auto) 4+ H (None Seen) Urine Mucus Present A (None Prsent) Urine Comment Adenovirus (PCR) (NotDetected) B. pertussis DNA (PCR) (NotDetected) B.parapertussis DNA PCR (NotDetected) C. pneumoniae DNA (PCR) (NotDetected) Coronavirus OC43 (PCR) (NotDetected) Coronavirus HKU1 (PCR) (NotDetected) Coronavirus 229E (PCR) (NotDetected) SARS-CoV-2 (PCR) (NotDetected) Coronavirus NL63 (PCR) (NotDetected) Human Metapneumovir PCR (NotDetected) Influenza Type A (PCR) (NotDetected) Influenza Type B (PCR) (NotDetected) M. pneumoniae (PCR) (NotDetected) Parainfluenza 1 (PCR) (NotDetected) Parainfluenza 2 (PCR) (NotDetected) Parainfluenza 3 (PCR) (NotDetected) Parainfluenza 4 (PCR) (NotDetected) RSV (PCR) (NotDetected) Entero/Rhino (PCR) (NotDetected) 09/29/25 Range/Units Unknown WBC (4.8-10.8) K/ul RBC (4.70-6.10) M/uL Hgb (14.0-18.0) g/dL Hct (42.0-52.0) % MCV (80.0-100.0) fL MCH (25.0-34.0) pg MCHC (32.0-36.0) g/dL RDW Std Deviation (36.4-46.3) fL RDW Coeff of Scott (11.5-14.5) % Plt Count (130-400) K/uL MPV (9.4-12.4) fL Immature Gran % (Auto) % Neut % (Auto) % Lymph % (Auto) % Barber % (Auto) % Eos % (Auto) % Baso % (Auto) % Neut # (Auto) (1.40-6.50) K/uL Lymph # (Auto) (1.20-3.40) K/uL Barber # (Auto) (0.11-0.59) K/uL Eos # (Auto) (0.00-0.50) K/uL Baso # (Auto) (0.00-0.20) K/uL Immature Gran # (Auto) (0.01-0.20) K/uL PT (9.0-12.0) Seconds INR (0.9-1.1) Sodium (136-145) mmol/L Potassium (3.5-5.1) mmol/L Chloride (98-107) mmol/L Carbon Dioxide (21-32) mmol/L Anion Gap (3-11) BUN (6-23) mg/dl Creatinine (0.6-1.4) mg/dl Est Cr Clr Drug Dosing ml/min eGFR BUN/Creatinine Ratio (10-20) Glucose (70-99(Fasting)) mg/dl POC Glucose (70-99) mg/dl Lactate (0.4-2.0) mmol/L Calcium (8.6-10.3) mg/dl Magnesium (1.7-2.4) mg/dl Total Bilirubin (0.2-1.0) mg/dl AST (13-39) U/L ALT (7-52) U/L Alkaline Phosphatase (34-104) U/L Troponin I High Sens (0-20) pg/ml Total Protein (6.0-8.3) gm/dl Albumin (3.4-5.0) gm/dl Globulin (2.5-4.0) gm/dl Albumin/Globulin Ratio (0.9-2) Procalcitonin (0-0.5) ng/ml TSH (0.300-4.500) uIu/ml Urine Color Urine Appearance (Clear) Urine pH (4.5-7.5) Ur Specific [place] (1.000-1.030) Urine Protein (Negative) Urine Glucose (UA) (Negative) Urine Ketones (Negative) Urine Blood (Negative) Urine Nitrite (Negative) Urine Bilirubin (Negative) Urine Urobilinogen (Negative) Ur Leukocyte Esterase (Negative) Urine WBC (Auto) (0-5) /hpf Urine RBC (Auto) (0-2) /hpf U Hyaline Cast (Auto) (0-2) /lpf U Epithel Cells (Auto) (0-2) /hpf Urine Bacteria (Auto) (None Seen) Urine Mucus (None Prsent) Urine Comment Adenovirus (PCR) Not Detected (NotDetected) B. pertussis DNA (PCR) Not Detected (NotDetected) B.parapertussis DNA PCR Not Detected (NotDetected) C. pneumoniae DNA (PCR) Not Detected (NotDetected) Coronavirus OC43 (PCR) Not Detected (NotDetected) Coronavirus HKU1 (PCR) Not Detected (NotDetected) Coronavirus 229E (PCR) Not Detected (NotDetected) SARS-CoV-2 (PCR) Not Detected (NotDetected) Coronavirus NL63 (PCR) Not Detected (NotDetected) Human Metapneumovir PCR Not Detected (NotDetected) Influenza Type A (PCR) Not Detected (NotDetected) Influenza Type B (PCR) Not Detected (NotDetected) M. pneumoniae (PCR) Not Detected (NotDetected) Parainfluenza 1 (PCR) Not Detected (NotDetected) Parainfluenza 2 (PCR) Not Detected (NotDetected) Parainfluenza 3 (PCR) Not Detected (NotDetected) Parainfluenza 4 (PCR) Not Detected (NotDetected) RSV (PCR) Not Detected (NotDetected) Entero/Rhino (PCR) Not Detected (NotDetected) Administered Medications Sodium Chloride (Nss) 1,000 mls @ 50 mls/hr IV .Q20H [facility] Stop: 09/30/25 08:59 Last Admin: 09/29/25 13:46 Dose: 50 mls/hr Documented By: BOBBY Discontinued Medications Cefepime HCl (Maxipime 2000mg) 1,000 mg in 10 mls @ 5 mls/min IV NOW STA; Protocol Stop: 09/29/25 10:58 Last Admin: 09/29/25 12:03 Dose: 5 mls/min Documented By: BOBBY Cefepime HCl (Maxipime 2000mg) 1,000 mg in 10 mls @ 5 mls/min IV Q24H [facility]; Protocol Stop: 10/09/25 12:14 Last Admin: 09/29/25 13:44 Dose: Not Given Documented By: BOBBY Imaging Data Radiologist's Impression: Abdomen/Pelvis CT 09/29/25 09:55 CT SCAN OF THE ABDOMEN AND PELVIS WITHOUT IV CONTRAST CLINICAL HISTORY: Lethargy. Right lower quadrant abdominal pain. COMPARISON STUDY: Abdominal CT dated 08/08/2025. TECHNIQUE: CT scan of the abdomen and pelvis is performed from the lung bases to the proximal femora. Images are reviewed in the axial, sagittal, and coronal planes. IV contrast was not administered for this examination. Note that the examination was performed in suboptimal fashion without oral and IV contrast. A dose lowering technique was utilized adhering to the principles of ALARA. There is streak artifact from the arms which could not be elevated above the abdomen as well as motion artifact. FINDINGS: Lung bases: The heart is enlarged and without pericardial effusion. The coronary arteries an mitral annulus are densely calcified. There is bibasilar scarring/atelectasis. A 4 mm left lower lobe pulmonary nodule on image #20 is unchanged. No airspace consolidation typical for pneumonia or pleural effusion is identified. There is a small hiatal hernia. Liver: The unenhanced liver is normal in size, contour, and attenuation. There is no intrahepatic biliary ductal dilatation. Gallbladder: Layering gallstones are suspected. There is no CT evidence of acute cholecystitis. Spleen: Normal in size and attenuation. Pancreas: The unenhanced pancreas is moderately atrophic and grossly unremarkable. Adrenal glands: Unremarkable. Kidneys: The unenhanced kidneys are normal in size. There is moderate left hydroureteronephrosis with left-sided perinephric and periureteric stranding/fluid. This has worsened as compared to the 08/08/2025 examination. There is fullness of the right ureter. No right-sided hydronephrosis is seen. No renal calculi are identified and there is no ureteral stone. There is no evidence of contour deforming renal mass lesion. Abdominal vasculature: There is moderate to advanced atherosclerotic calcification and mild ectasia of the abdominal aorta. Bowel: There is rectosigmoid fecal retention and [id number] constipation. No bowel obstruction is seen. Metallic foreign bodies are noted within the lumen of the right colon as well as the sigmoid. The appendix is well-visualized and normal. Peritoneum: There is no intraperitoneal free air or abdominal ascites. There are fat-containing umbilical and supraumbilical hernias. Lymphadenopathy: None. Pelvic viscera: The bladder is partially decompressed around a Hanna catheter. A large 3.1 cm calcification versus hyperdense debris is seen within the bladder lumen and there is intraluminal gas. The bladder wall is markedly thickened with surrounding inflammation. The prostate gland is mildly enlarged and heterogeneous. There is a large fat-containing right inguinal hernia. Skeletal structures: The skeletal structures are osteopenic. No lytic or blastic lesions are seen. Chronic compression deformities of T12 and L1 are similar to previous. There is corresponding hyperkyphosis at this level. There is also minimal chronic superior endplate compression deformity of T10. Moderate lumbosacral spondylosis is observed. There are chronic/healed bilateral rib fractures. Postsurgical changes noted in the proximal shaft of the right femur. IMPRESSION: 1. Suboptimal examination without oral and IV contrast. There is also significant streak and motion artifact. 2. The bladder is partially decompressed around a Hanna catheter and is markedly thick walled with surrounding inflammation. There is a large calcification versus hyperdense debris within the bladder lumen as well as intraluminal gas. Correlate with clinical findings and urinalysis for evidence of cystitis. 3. There is moderate left hydroureteronephrosis with associated left-sided perinephric and periureteric stranding/fluid. This has increased from the 08/08/2025 examination. No obstructing stone or lesion is clearly seen. Follow up with urology is recommended. 4. There is a large fat-containing right inguinal hernia. 5. Cardiomegaly noting coronary artery atherosclerosis. 6. Additional findings as above. ACT 112: Negative or not required by law. Electronically signed by: Chris Earl M.D. 09/29/2025 11:[address] 09/29/25 09:55 CT chest diagnostic wo con CT DOSE: 2887.1 mGy.cm CLINICAL HISTORY: lethargy, RLQ pain, mild hypoxia. TECHNIQUE: Multiaxial CT images of the chest were performed without contrast. A dose lowering technique was utilized adhering to the principles of ALARA. COMPARISON STUDY: 08/08/2025 FINDINGS: There are trace airway secretions. There is motion artifact due to difficulty breath holding. There is mildly progressive mild atelectasis in the lung bases. No lobar consolidation or pleural effusion. No pneumothorax. There are a few stable small pulmonary nodules measuring up to 5 mm at the left lower lobe. No enlarged adenopathy seen. No pericardial effusion. There are diffuse coronary artery calcifications. There is stable height loss at a few thoracic vertebral bodies. No acute osseous findings seen. IMPRESSION: 1. Mildly progressive mild atelectasis in the lung bases. 2. No other acute findings seen. ACT 112: Negative or not required by law. Electronically signed by: Del Ghosh M.D. 09/29/2025 11:[address] 09/29/25 09:56 CT SCAN OF THE BRAIN WITHOUT IV CONTRAST CLINICAL HISTORY: Lethargy. COMPARISON STUDY: CT of the brain dated 08/08/2025. TECHNIQUE: Unenhanced CT scan of the brain is performed from the vertex to the skull base. Images are reviewed in the axial, sagittal, coronal planes. A dose lowering technique was utilized adhering to the principles of ALARA. The examination is degraded by motion artifact. FINDINGS: Brain parenchyma: There is age-related involutional change noting moderate to advanced confluent subcortical and periventricular microangiopathic disease. There is no hemorrhage, mass effect, or evidence of acute territorial ischemia by CT criteria. Naidu-white matter differentiation is preserved. No extra-axial fluid collection is seen. Ventricles, sulci, cisterns: Prominent secondary to involutional change. Intracranial vasculature: There is atherosclerotic calcification of the cavernous carotid and vertebral arteries. Calvarium: Unremarkable. Sinuses and mastoids: There is trace mucosal thickening within the maxillary antra. Fluid is seen within the sphenoid sinuses, and there is also trace mucosal thickening within the right frontal sinus and the ethmoid sinuses. There is evidence of previous left mastoid surgery1. Bilateral mastoid effusions are observed. Orbits: The bony orbits are grossly intact. IMPRESSION: There is no hemorrhage, mass effect, or evidence of acute territorial ischemia by CT criteria. ACT 112: Negative or not required by law. Electronically signed by: Chris Earl M.D. 09/29/2025 11:02 AM Discharge Plan Visit Data Chief Complaint: Abdominal Pain Stated Complaint: AB PAIN ED Provider: John Phillips Discharge Problem: Catheter-associated urinary tract infection, Acute kidney injury superimposed on CKD, Severe hearing loss Patient Disposition: Admitted As Inpatient Condition: Fair Discharge Instructions Interventions: ED Discharge Assessment Last Done: 09/29/25 14:36 Forms Stand Alone Forms: [employer] Prescriptions Prescriptions: No Action insulin glargine [Lantus Solostar U-100 Insulin] 100 unit/mL (3 mL) insulin pen 5 unit SUBCUT HS furosemide [Lasix] 20 mg tablet 20 mg PO QAM ipratropium-albuterol 0.5 mg-3 mg(2.5 mg base)/3 mL Solution For Nebulization 3 ml INHALATION Q4 PRN (Reason: Shortness Of Breath Or Wheezing) amitriptyline 10 mg Tablet 30 mg PO HS Glucagon Emergency Kit (human) 1 mg Recon Soln 1 mg IM DIRECTED PRN (Reason: Hypoglycemia) docusate sodium 100 mg Tablet 100 mg PO [facility] pregabalin 75 mg Capsule 75 mg PO [facility] atorvastatin 40 mg tablet 40 mg PO HS sennosides-docusate sodium [Senokot-S] 8.6-50 mg tablet 1 tab PO [facility] finasteride 5 mg tablet 5 mg PO QAM tamsulosin 0.4 mg capsule 0.4 mg PO HS pantoprazole 40 mg tablet,delayed release (DR/EC) 40 mg PO BID Qty: 60 0RF levothyroxine 75 mcg tablet 75 mcg PO DAILYBB magnesium hydroxide [Milk of Magnesia] 400 mg/5 mL Suspension 30 ml PO DAILY PRN (Reason: Constipation) bisacodyl [Dulcolax (bisacodyl)] 10 mg Suppository 10 mg OR DAILY PRN (Reason: Constipation) Fleet Enema 19-7 gram/118 mL Enema 118 ml OR DAILY PRN (Reason: Constipation) menthol-zinc oxide 0.44-20 % Ointment 1 ea TOPICAL BID Rx Instructions: Applied to buttocks insulin aspart U-100 100 unit/mL solution See Rx Instructions .ROUTE .COMPLEX Rx Instructions: Subcutaneously before meals and at bedtime for DM. 350-400 = 8units; 401-450 = 12units; 451-500 = 16units; 501-550 = 18units. 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 BSG<90, BSG>551 Eliquis 2.5 mg tablet 2.5 mg PO BID Referrals Referrals: James Maria DO [Outside Practitioners] -
[2025-09-29 10:19] LABS: Hematocrit (blood only) 31.9 % (42.0-52.0); Hemoglobin 10.9 g/dL (14.0-18.0); Immature Granulocytes # (auto) 0.02 K/uL (0.01-0.20); Immature Granulocytes % (auto) 0.2 %; Mean Corpuscular Hemoglobin 29.6 pg (25.0-34.0); Mean Corpuscular Volume 86.7 fL (80.0-100.0); Platelet Count 244 K/uL (130-400); RDW Standard Deviation 42.0 fL (36.4-46.3); Red Blood Count 3.68 M/uL (4.70-6.10); White Blood Count 11.02 K/ul (4.8-10.8)
[2025-09-29 10:34] LABS: Appearance Urine Turbid (Clear); Bacteria Urine Automated 4+ (None Seen); Epithelial Cell Urine Auto 0-2 /hpf (0-2); Glucose Urine UA Negative (Negative); RBC Urine Automated >20 /hpf (0-2); WBC Urine Automated >50 /hpf (0-5)
[2025-09-29 10:41] LABS: Alanine Aminotransferase 10.0 U/L (7-52); Albumin Globulin Ratio 0.8 (0.9-2); Albumin Level 3.5 gm/dl (3.4-5.0); Alkaline Phosphatase 71.0 U/L (34-104); Anion Gap 11.0 (3-11); Bilirubin,Total 0.7 mg/dl (0.2-1.0); Blood Urea Nitrogen 64.0 mg/dl (6-23); Calcium 8.7 mg/dl (8.6-10.3); Carbon Dioxide 29.0 mmol/L (21-32); Chloride 98.0 mmol/L (98-107); Creatinine Clr Calc Pharmacy 17.9 ml/min; Globulin 4.3 gm/dl (2.5-4.0); Glucose 200.0 mg/dl (70-99(Fasting)); Magnesium 2.0 mg/dl (1.7-2.4); Potassium 3.7 mmol/L (3.5-5.1); Sodium 138.0 mmol/L (136-145); Total Protein 7.8 gm/dl (6.0-8.3)
[2025-09-29 10:47] LABS: Cast Urine Automated 0-2 /lpf (0-2)
[2025-09-29 10:48] LABS: INR 1.2 (0.9-1.1); Prothrombin Time 12.8 Seconds (9.0-12.0)
[2025-09-29 10:56] LABS: Thyroid Stimulating Hormone 3.658 uIu/ml (0.300-4.500)
--- NOTE | 2025-09-29 11:04 | CT Scan Report ---
CT SCAN OF THE BRAIN WITHOUT IV CONTRAST CLINICAL HISTORY: Lethargy. COMPARISON STUDY: CT of the brain dated 08/08/2025. TECHNIQUE: Unenhanced CT scan of the brain is performed from the vertex to the skull base. Images are reviewed in the axial, sagittal, coronal planes. A dose lowering technique was utilized adhering to the principles of ALARA. The examination is degraded by motion artifact. FINDINGS: Brain parenchyma: There is age-related involutional change noting moderate to advanced confluent subc ortical and periventricular microangiopathic disease. There is no hemorrhage, mass effect, or evidenc e of acute territorial ischemia by CT criteria. Naidu-white matter differentiation is preserved. No ex tra-axial fluid collection is seen. Ventricles, sulci, cisterns: Prominent secondary to involutional change. Intracranial vasculature: There is atherosclerotic calcification of the cavernous carotid and vertebr al arteries. Calvarium: Unremarkable. Sinuses and mastoids: There is trace mucosal thickening within the maxillary antra. Fluid is seen wit hin the sphenoid sinuses, and there is also trace mucosal thickening within the right frontal sinus a nd the ethmoid sinuses. There is evidence of previous left mastoid surgery1. Bilateral mastoid effusi ons are observed. Orbits: The bony orbits are grossly intact. IMPRESSION: There is no hemorrhage, mass effect, or evidence of acute territorial ischemia by CT bandar al. ACT 112: Negative or not required by law. Electronically signed by: Chris Earl M.D. 09/29/2025 11:02 AM
--- NOTE | 2025-09-29 11:04 | CT Scan Report ---
CT chest diagnostic wo con CT DOSE: 2887.1 mGy.cm CLINICAL HISTORY: lethargy, RLQ pain, mild hypoxia. TECHNIQUE: Multiaxial CT images of the chest were performed without contrast. A dose lowering techni que was utilized adhering to the principles of ALARA. COMPARISON STUDY: 08/08/2025 FINDINGS: There are trace airway secretions. There is motion artifact due to difficulty breath holdin g. There is mildly progressive mild atelectasis in the lung bases. No lobar consolidation or pleural effusion. No pneumothorax. There are a few stable small pulmonary nodules measuring up to 5 mm at the left lower lobe. No enlarged adenopathy seen. No pericardial effusion. There are diffuse coronary ar atiya calcifications. There is stable height loss at a few thoracic vertebral bodies. No acute osseous findings seen. IMPRESSION: 1. Mildly progressive mild atelectasis in the lung bases. 2. No other acute findings seen. ACT 112: Negative or not required by law. Electronically signed by: Del Ghosh M.D. 09/29/2025 11:02 AM
--- NOTE | 2025-09-29 11:19 | CT Scan Report ---
CT SCAN OF THE ABDOMEN AND PELVIS WITHOUT IV CONTRAST CLINICAL HISTORY: Lethargy. Right lower quadrant abdominal pain. COMPARISON STUDY: Abdominal CT dated 08/08/2025. TECHNIQUE: CT scan of the abdomen and pelvis is performed from the lung bases to the proximal femora. Images are reviewed in the axial, sagittal, and coronal planes. IV contrast was not administered for this examination. Note that the examination was performed in suboptimal fashion without oral and IV contrast. A dose lowering technique was utilized adhering to the principles of ALARA. There is streak artifact from the arms which could not be elevated above the abdomen as well as motion artifact. FINDINGS: Lung bases: The heart is enlarged and without pericardial effusion. The coronary arteries an mitral a nnulus are densely calcified. There is bibasilar scarring/atelectasis. A 4 mm left lower lobe pulmona ry nodule on image #20 is unchanged. No airspace consolidation typical for pneumonia or pleural effus ion is identified. There is a small hiatal hernia. Liver: The unenhanced liver is normal in size, contour, and attenuation. There is no intrahepatic brennan iary ductal dilatation. Gallbladder: Layering gallstones are suspected. There is no CT evidence of acute cholecystitis. Spleen: Normal in size and attenuation. Pancreas: The unenhanced pancreas is moderately atrophic and grossly unremarkable. Adrenal glands: Unremarkable. Kidneys: The unenhanced kidneys are normal in size. There is moderate left hydroureteronephrosis with left-sided perinephric and periureteric stranding/fluid. This has worsened as compared to the 025 examination. There is fullness of the right ureter. No right-sided hydronephrosis is seen. No bull al calculi are identified and there is no ureteral stone. There is no evidence of contour deforming r enal mass lesion. Abdominal vasculature: There is moderate to advanced atherosclerotic calcification and mild ectasia o f the abdominal aorta. Bowel: There is rectosigmoid fecal retention and nexv-ot-krrbowwa constipation. No bowel obstruction is seen. Metallic foreign bodies are noted within the lumen of the right colon as well as the sigmoid . The appendix is well-visualized and normal. Peritoneum: There is no intraperitoneal free air or abdominal ascites. There are fat-containing umbil ical and supraumbilical hernias. Lymphadenopathy: None. Pelvic viscera: The bladder is partially decompressed around a Hanna catheter. A large 3.1 cm calcifi cation versus hyperdense debris is seen within the bladder lumen and there is intraluminal gas. The b ladder wall is markedly thickened with surrounding inflammation. The prostate gland is mildly enlarge d and heterogeneous. There is a large fat-containing right inguinal hernia. Skeletal structures: The skeletal structures are osteopenic. No lytic or blastic lesions are seen. Chronic compression deformities of T12 and L1 are similar to previous. There is corresponding hyperky phosis at this level. There is also minimal chronic superior endplate compression deformity of T10. M oderate lumbosacral spondylosis is observed. There are chronic/healed bilateral rib fractures. Postsu rgical changes noted in the proximal shaft of the right femur. IMPRESSION: 1. Suboptimal examination without oral and IV contrast. There is also significant streak and motion a rtifact. 2. The bladder is partially decompressed around a Hanna catheter and is markedly thick walled with ryan rrounding inflammation. There is a large calcification versus hyperdense debris within the bladder christine men as well as intraluminal gas. Correlate with clinical findings and urinalysis for evidence of cyst itis. 3. There is moderate left hydroureteronephrosis with associated left-sided perinephric and periureter ic stranding/fluid. This has increased from the 08/08/2025 examination. No obstructing stone or lesion is clearly seen. Follow up with urology is recommended. 4. There is a large fat-containing right inguinal hernia. 5. Cardiomegaly noting coronary artery atherosclerosis. 6. Additional findings as above. ACT 112: Negative or not required by law. Electronically signed by: Chris Earl M.D. 09/29/2025 11:17 AM
[2025-09-29 11:31] LABS: Chlamydia pneumoniae PCR Not Detected (NotDetected); Coronavirus 229E PCR Not Detected (NotDetected); Coronavirus CoV-2 (COVID19)PCR Not Detected (NotDetected); Coronavirus HKU1 PCR Not Detected (NotDetected); Coronavirus NL63 PCR Not Detected (NotDetected); Coronavirus OC43PCR Not Detected (NotDetected); Human Metapneumovirus PCR Not Detected (NotDetected); Parainfluenza Virus 1 PCR Not Detected (NotDetected); Parainfluenza Virus 2 PCR Not Detected (NotDetected); Parainfluenza Virus 3 PCR Not Detected (NotDetected); Parainfluenza Virus 4 PCR Not Detected (NotDetected); Respiratory Syncytial VirusPCR Not Detected (NotDetected); Rhinovirus/Enterovirus PCR Not Detected (NotDetected)
--- NOTE | 2025-09-29 11:54 | History & Physical Report ---
Date of Service September 29, 2025 Assessment & Plan (1) Acute metabolic encephalopathy: (2) Catheter-associated urinary tract infection: (3) Chronic indwelling Hanna catheter: (4) Elevated troponin: Plan Patient is an 80-year-old male with past medical history significant for insulin-dependent DM type II with polyneuropathy, history of diabetic ulcer of the toe of the right foot and osteomyelitis s/p right BKA, chronic renal insufficiency, HLD, paroxysmal A-fib anticoagulated on Eliquis, HTN, chronic HFpEF, chronic Hanna catheter placement secondary to BPH with chronic outlet obstruction and bilateral hydronephrosis, history of recurrent catheter associated UTIs, severe hearing loss, PAD, chronic respiratory failure on home O2, chronic anemia, history of MRSA, past tobacco abuse and severe aortic stenosis who presented to the ED from [facility] due to c/o RLQ abdominal pain/pressure and urinary urgency. Acute metabolic encephalopathy Unable to elicit any meaningful history from patient. Extremely somnolent, difficult to arouse but does open eyes with sternal rub. Extremely hard of hearing. Not following commands or answering direct questioning. Per staff at [facility], patient is A&Ox1-2 at baseline, able to follow basic commands and answer direct questioning. Head CT performed in ED grossly unremarkable. Mentation likely 2/2 below. Continue to closely monitor and reorient patient as able. Full liquid diet for now until mentation level improves, aspiration precautions. Patient is extremely [place]. May benefit from written directions/questioning. Neurochecks Q6H for now. Catheter associated UTI, possible L-sided pyelonephritis Chronic Hanna catheter placement 2/2 BPH with chronic outlet obstruction and bilateral hydronephrosis Mild leukocytosis, UA with evidence of infection. CTAP with bladder wall inflammation c/w cystitis, possible L-sided pyelonephritis, moderate L hydroureteronephrosis (increased from prior imaging). No obstructing stone or lesion clearly seen on CTAP. Appreciate urology consult for further evaluation of worsening L hydroureteronephrosis. S/p dose of IV cefepime in ED based on prior urine culture results. Continue IV cefepime for now pending blood and urine cultures. Hanna catheter exchanged in ED. Continue Proscar, Flomax. Elevated troponin Follow trend, likely 2/2 demand ischemia ISO above and CRI. EKG appears grossly unchanged compared to prior. Continue telemetry monitoring. Chronic HFpEF Hold Lasix for now, appears somewhat dry on exam. Some trace LLE edema. Gentle IVF x 1 bag, reassess volume status in AM. Chronic respiratory failure on home O2 On baseline 2L NC. Chronic renal insufficiency Cr appears stable compared to prior, Cr trending around 2.8-3.3 over course of the past several months per chart review. Continue to monitor and avoid nephrotoxic agents as able. Mildly progressive atelectasis in the lung bases seen on chest CT ISP ordered as patient tolerates. Insulin-dependent DMII Hemoglobin A1c 6.8% as of August 2025. Basal/bolus regimen while inpatient, follow BSG checks ACHS. Appreciate glycemic pharmacy consult for assistance with insulin management. Diabetic polyneuropathy Continue Lyrica. Hypothyroidism TSH WNL, continue current levothyroxine dosing. History of mood disorder Continue amitriptyline. Other chronic medical conditions: HLD - Continue statin therapy. GERD - Continue PPI BID. Chronic anemia - H/H stable when compared to prior, continue to monitor. DVT Prophylaxis: SCDs/TEDs, Eliquis Code Status: DNR/DNI - Confirmed with paperwork provided by [facility]. PCP: James Maria DO Disposition: Admit to med/telemetry Patient seen in collaboration with Dr. Elizondo. Please see addendum. I spent a total of 78 minutes coordinating, documenting, and providing care for this patient excluding time spent in the performance of separately billed services or time spent by another provider/QHP. This included personally reviewing all current laboratories and imaging studies, medical reconciliation, outpatient chart review and discussion with specialists. This chart was completed in part utilizing Speech Voice Recognition Software. Grammatical errors, random word insertions, pronoun errors, and incomplete sentences are an occasional consequence of this system due to software limitations, ambient noise, and hardware issues. Any formal questions or concerns about the content, text, or information contained within the body of this dictation should be directly addressed to the provider for clarification. History of Present Illness Chief Complaint: RLQ abdominal pain and pressure, urinary urgency Primary Care Provider: [facility] Patient is an 80-year-old male with past medical history significant for insulin-dependent DM type II with polyneuropathy, history of diabetic ulcer of the toe of the right foot and osteomyelitis s/p right BKA, chronic renal insufficiency, HLD, paroxysmal A-fib anticoagulated on Eliquis, HTN, chronic H FpEF, chronic Hanna catheter placement secondary to BPH with chronic outlet obstruction and bilateral hydronephrosis, history of recurrent catheter associated UTIs, severe hearing loss, PAD, chronic respiratory failure on home O2, chronic anemia, history of MRSA, past tobacco abuse and severe aortic stenosis who presented to the ED from [facility] due to c/o RLQ abdominal pain/pressure and urinary urgency. Unable to elicit any meaningful history from patient. Extremely somnolent, difficult to arouse but does open eyes with sternal rub. Extremely hard of hearing. Not following commands or answering direct questioning. Patient is a long-term care resident at [facility]. Did speak with one of the RNs from [facility] over the phone, Pablo, at [phone]. States patient is alert and oriented x 1-2 at baseline, able to answer direct questioning and follow basic commands. Reports that patient was complaining of right lower quadrant abdominal pain and pressure this morning. States catheter was functioning without issue. No reported fevers. No reported hematuria. Appetite grossly unchanged. Moving bowels okay. Mostly wheelchair-bound. Allergies Allergy/AdvReac Type Severity Reaction Status Date / Time lisinopril Allergy Severe Swelling Verified 08/30/25 13:16 of Face/Lips/Tongue hydrochlorothiazide Allergy Unknown Unknown - Unverified 08/30/25 13:16 On file w/ [facility] Home Medications Medication Instructions Recorded Confirmed Type insulin glargine 100 unit/mL (3 5 unit subcut HS 04/07/24 09/29/25 History mL) subcutaneous pen (Lantus Solostar U-100 Insulin) amitriptyline 10 mg tablet 30 mg PO HS 03/15/25 09/29/25 History atorvastatin 40 mg tablet 40 mg PO HS 03/15/25 09/29/25 History docusate sodium 100 mg tablet 100 mg PO [facility] 03/15/25 09/29/25 History finasteride 5 mg tablet 5 mg PO QAM 03/15/25 09/29/25 History glucagon 1 mg solution for 1 mg IM DIRECTED PRN 03/15/25 09/29/25 History injection (Glucagon Emergency Kit) Hypoglycemia pregabalin 75 mg capsule 75 mg PO [facility] 03/15/25 09/29/25 History sennosides 8.6 mg-docusate sodium 1 tab PO [facility] constipation 03/15/25 09/29/25 History 50 mg tablet (Senokot-S) tamsulosin 0.4 mg capsule 0.4 mg PO HS 03/15/25 09/29/25 History pantoprazole 40 mg tablet,delayed 40 mg PO BID #60 tabs 03/20/25 09/29/25 Rx release furosemide 20 mg tablet (Lasix) 20 mg PO QAM 08/08/25 09/29/25 History ipratropium 0.5 mg-albuterol 3 mg 3 ml inhalation Q4 PRN Shortness 08/08/25 09/29/25 History (2.5 mg base)/3 mL nebulization Of Breath Or Wheezing soln apixaban 2.5 mg tablet (Eliquis) 2.5 mg PO BID 09/29/25 09/29/25 History bisacodyl 10 mg rectal suppository 10 mg MO DAILY PRN Constipation 09/29/25 09/29/25 History (Dulcolax (bisacodyl)) insulin aspart U-100 100 unit/mL See Rx Instructions .Route .COMPLEX 09/29/25 09/29/25 History subcutaneous solution levothyroxine 75 mcg tablet 75 mcg PO DAILYBB 09/29/25 09/29/25 History magnesium hydroxide 400 mg/5 mL 30 ml PO DAILY PRN Constipation 09/29/25 09/29/25 History oral suspension (Milk of Magnesia) menthol 0.44 %-zinc oxide 20 % 1 ea topical BID 09/29/25 09/29/25 History topical ointment sodium phosphates 19 gram-7 118 ml MO DAILY PRN Constipation 09/29/25 09/29/25 History gram/118 mL enema (Fleet Enema) Past Med/Surg History Problem List (Updated 09/29/25 @ 14:46 by John Phillips M.D.) Acute kidney injury superimposed on CKD (Acute) Elevated troponin Acute metabolic encephalopathy Other obstructive and reflux uropathy (Chronic) Fungemia CESAR (acute kidney injury) (Acute) Anemia (Acute) Pneumonia (Acute) Acute alteration in mental status (Acute) Sepsis Shock Acute and chronic respiratory failure with hypoxia (Acute) Septic shock (Acute) Hypotension Chronic retention of urine (Chronic) BPH w urinary obs/LUTS (Chronic) Acute heart failure with preserved ejection fraction Aortic stenosis Atrial fibrillation with rapid ventricular response (Acute) Acute CHF (Acute) Acute respiratory failure with hypoxia (Acute) Acute kidney injury (CESAR) with acute tubular necrosis (ATN) Acute kidney injury superimposed on CKD S/P BKA (below knee amputation) unilateral Weakness (Acute) Symptomatic anemia (Acute) Catheter-associated urinary tract infection (Chronic) Diabetic foot ulcers Closed compression fracture of thoracic vertebra (Acute) Lymphedema (Chronic) Fall (Acute) Open wound of finger (Acute) Diabetic peripheral neuropathy associated with type 2 diabetes mellitus HTN (hypertension) Diabetic ulcer of right foot (Acute) Charcot foot due to diabetes mellitus Closed T12 fracture (Acute) Diabetic ulcer of left heel (Acute) Hyponatremia (Acute) Otitis externa of left ear Chronic indwelling Hanna catheter (Chronic) Otitis externa Ambulatory dysfunction Severe aortic stenosis Chronic heart failure with preserved ejection fraction (HFpEF) Ear drum perforation Severe hearing loss (Acute) Open wound of abdomen (Acute) Homeless (Acute) Edema of both legs Hypertension Paroxysmal atrial fibrillation Diabetes mellitus, type II (Chronic) Dyslipidemia Medical History Encephalopathy Pyelonephritis Hydronephrosis, bilateral Asymptomatic hypertensive urgency Bilateral lower leg cellulitis Blister of finger Maggot infestation CESAR (acute kidney injury) Surgical History History of ear surgery age 19, mastoid H/O shoulder surgery S/P foot surgery, left Family History Brother Diabetes Social History Smoking Status: Unknown if ever smoked Tobacco Type: Cigarettes Second Hand Exposure: No; Do You Dip or Chew Tobacco: No; Hx Alcohol Use: No Hx Substance Use: No Preferred Language: Vincentian Communication Ability: Impaired Communication Ability Comment: Hearing Loss. Visual Impairment: Limited Hearing Ability: Use of Hearing Aid Painter Drum Required: No Beliefs That Will Affect Care: None marital status: Current Living Situation: Personal Care Facility Current Living Situation Comment: [facility] current occupational status: retired How many Children do You have: 3 Feels Safe at Home: Yes during the past year weight has: remained stable Dental Care, Regularly: No Physical Activity Frequency: Does not Exercise Assistive Devices: Oxygen - Continuous Review of Systems Review of Systems: Unobtainable 2/2 altered mentation level. Physical Exam Physical Exam: General/Neuro: Elderly M. Laying down in bed. Extremely [place]. Difficult to arouse. Opens eyes but not answering direct questions or following commands. HEENT: Skin growth seen on right cheek, possible seborrheic keratosis, with dried blood seen inferior to the growth. Oropharynx somewhat dry. Respiratory: Decreased breath sounds bilaterally, unable to follow inspiratory commands. On baseline 2L NC. Cardiovascular: RRR. + systolic mumur. Trace LLE edema. Abdomen/GI: Normal bowel sounds, soft, nontender to palpation in all quadrants. Extremities/Musculoskeletal: + R BKA status. Not able to following extremity testing commands. Results & Data Results & Data Vital Signs (Past 12 Hours) Vital Signs Temp Pulse Pulse Resp BP Pulse Ox O2 Del Method 09/29/25 10:55 82 18 115/78 99 Nasal Cannula 09/29/25 10:01 85 09/29/25 09:50 37.1 C 90 20 134/95 93 Nasal Cannula O2 Flow Rate 09/29/25 10:55 2 09/29/25 10:01 09/29/25 09:50 2 Laboratory Results Short CBC 09/29/25 Range/Units 09:58 WBC 11.02 H (4.8-10.8) K/ul Hgb 10.9 L (14.0-18.0) g/dL Hct 31.9 L (42.0-52.0) % Plt Count 244 (130-400) K/uL BMP 09/29/25 09:58 Sodium 138 Potassium 3.7 Chloride 98 Carbon Dioxide 29 BUN 64 H Creatinine 3.20 H Glucose 200 H Calcium 8.7 Liver Function 09/29/25 Range/Units 09:58 Total Bilirubin 0.7 (0.2-1.0) mg/dl AST 12 L (13-39) U/L ALT 10 (7-52) U/L Alkaline Phosphatase 71 (34-104) U/L Albumin 3.5 (3.4-5.0) gm/dl Urine 09/29/25 Range/Units 09:58 Urine Color Yellow Urine Appearance Turbid A (Clear) Urine pH >= 9.0 H (4.5-7.5) Ur Specific [place] 1.013 (1.000-1.030) Urine Protein 3+ H (Negative) Urine Glucose (UA) Negative (Negative) Diagnostic Findings Abdomen/Pelvis CT 09/29/25 09:55 CT SCAN OF THE ABDOMEN AND PELVIS WITHOUT IV CONTRAST CLINICAL HISTORY: Lethargy. Right lower quadrant abdominal pain. COMPARISON STUDY: Abdominal CT dated 08/08/2025. TECHNIQUE: CT scan of the abdomen and pelvis is performed from the lung bases to the proximal femora. Images are reviewed in the axial, sagittal, and coronal planes. IV contrast was not administered for this examination. Note that the examination was performed in suboptimal fashion without oral and IV contrast. A dose lowering technique was utilized adhering to the principles of ALARA. There is streak artifact from the arms which could not be elevated above the abdomen as well as motion artifact. FINDINGS: Lung bases: The heart is enlarged and without pericardial effusion. The coronary arteries an mitral annulus are densely calcified. There is bibasilar scarring/atelectasis. A 4 mm left lower lobe pulmonary nodule on image #20 is unchanged. No airspace consolidation typical for pneumonia or pleural effusion is identified. There is a small hiatal hernia. Liver: The unenhanced liver is normal in size, contour, and attenuation. There is no intrahepatic biliary ductal dilatation. Gallbladder: Layering gallstones are suspected. There is no CT evidence of acute cholecystitis. Spleen: Normal in size and attenuation. Pancreas: The unenhanced pancreas is moderately atrophic and grossly unremarkable. Adrenal glands: Unremarkable. Kidneys: The unenhanced kidneys are normal in size. There is moderate left hydroureteronephrosis with left-sided perinephric and periureteric stranding/fluid. This has worsened as compared to the 08/08/2025 examination. There is fullness of the right ureter. No right-sided hydronephrosis is seen. No renal calculi are identified and there is no ureteral stone. There is no evidence of contour deforming renal mass lesion. Abdominal vasculature: There is moderate to advanced atherosclerotic calcification and mild ectasia of the abdominal aorta. Bowel: There is rectosigmoid fecal retention and [id number] constipation. No bowel obstruction is seen. Metallic foreign bodies are noted within the lumen of the right colon as well as the sigmoid. The appendix is well-visualized and normal. Peritoneum: There is no intraperitoneal free air or abdominal ascites. There are fat-containing umbilical and supraumbilical hernias. Lymphadenopathy: None. Pelvic viscera: The bladder is partially decompressed around a Hanna catheter. A large 3.1 cm calcification versus hyperdense debris is seen within the bladder lumen and there is intraluminal gas. The bladder wall is markedly thickened with surrounding inflammation. The prostate gland is mildly enlarged and heterogeneous. There is a large fat-containing right inguinal hernia. Skeletal structures: The skeletal structures are osteopenic. No lytic or blastic lesions are seen. Chronic compression deformities of T12 and L1 are similar to previous. There is corresponding hyperkyphosis at this level. There is also minimal chronic superior endplate compression deformity of T10. Moderate lumbosacral spondylosis is observed. There are chronic/healed bilateral rib fractures. Postsurgical changes noted in the proximal shaft of the right femur. IMPRESSION: 1. Suboptimal examination without oral and IV contrast. There is also significant streak and motion artifact. 2. The bladder is partially decompressed around a Hanna catheter and is markedly thick walled with surrounding inflammation. There is a large calcification versus hyperdense debris within the bladder lumen as well as intraluminal gas. Correlate with clinical findings and urinalysis for evidence of cystitis. 3. There is moderate left hydroureteronephrosis with associated left-sided perinephric and periureteric stranding/fluid. This has increased from the 08/08/2025 examination. No obstructing stone or lesion is clearly seen. Follow up with urology is recommended. 4. There is a large fat-containing right inguinal hernia. 5. Cardiomegaly noting coronary artery atherosclerosis. 6. Additional findings as above. ACT 112: Negative or not required by law. Electronically signed by: Chris Earl M.D. 09/29/2025 11:[address] 09/29/25 09:55 CT chest diagnostic wo con CT DOSE: 2887.1 mGy.cm CLINICAL HISTORY: lethargy, RLQ pain, mild hypoxia. TECHNIQUE: Multiaxial CT images of the chest were performed without contrast. A dose lowering technique was utilized adhering to the principles of ALARA. COMPARISON STUDY: 08/08/2025 FINDINGS: There are trace airway secretions. There is motion artifact due to difficulty breath holding. There is mildly progressive mild atelectasis in the lung bases. No lobar consolidation or pleural effusion. No pneumothorax. There are a few stable small pulmonary nodules measuring up to 5 mm at the left lower lobe. No enlarged adenopathy seen. No pericardial effusion. There are diffuse coronary artery calcifications. There is stable height loss at a few thoracic vertebral bodies. No acute osseous findings seen. IMPRESSION: 1. Mildly progressive mild atelectasis in the lung bases. 2. No other acute findings seen. ACT 112: Negative or not required by law. Electronically signed by: Del Ghosh M.D. 09/29/2025 11:[address] 09/29/25 09:56 CT SCAN OF THE BRAIN WITHOUT IV CONTRAST CLINICAL HISTORY: Lethargy. COMPARISON STUDY: CT of the brain dated 08/08/2025. TECHNIQUE: Unenhanced CT scan of the brain is performed from the vertex to the skull base. Images are reviewed in the axial, sagittal, coronal planes. A dose lowering technique was utilized adhering to the principles of ALARA. The examination is degraded by motion artifact. FINDINGS: Brain parenchyma: There is age-related involutional change noting moderate to advanced confluent subcortical and periventricular microangiopathic disease. There is no hemorrhage, mass effect, or evidence of acute territorial ischemia by CT criteria. Naidu-white matter differentiation is preserved. No extra-axial fluid collection is seen. Ventricles, sulci, cisterns: Prominent secondary to involutional change. Intracranial vasculature: There is atherosclerotic calcification of the cavernous carotid and vertebral arteries. Calvarium: Unremarkable. Sinuses and mastoids: There is trace mucosal thickening within the maxillary antra. Fluid is seen within the sphenoid sinuses, and there is also trace mucosal thickening within the right frontal sinus and the ethmoid sinuses. There is evidence of previous left mastoid surgery1. Bilateral mastoid effusions are observed. Orbits: The bony orbits are grossly intact. IMPRESSION: There is no hemorrhage, mass effect, or evidence of acute territorial ischemia by CT criteria. ACT 112: Negative or not required by law. Electronically signed by: Chris Earl M.D. 09/29/2025 11:02 AM Medications Administered Discontinued Medications Cefepime HCl (Maxipime 2000mg) 1,000 mg in 10 mls @ 5 mls/min IV NOW STA; Protocol Stop: 09/29/25 10:58 Last Admin: 09/29/25 12:03 Dose: 5 mls/min Documented By: BOBBY Supervising Physician Co-Signing Physician Notes Patient is an 80-year-old male with multiple comorbidities, diastolic heart failure, A-fib on Eliquis, severe aortic stenosis, diabetes mellitus, CKD stage IV, significant hearing loss, chronic Hanna due to BPH, obstructive uropathy, recurrent UTIs, right BKA and other medical problems presents from SNF with history of right lower quadrant abdominal discomfort and increased urinary urgency per ED staff. Patient is lethargic, drowsy and has significant hearing loss and was not able to provide any history. Most of the history is obtained from old records, ED physician and also from staff at SNF. Hanna catheter was functioning well and was exchanged while in ED. No known fever, chills, hematuria. Please review HPI for complete details of presentation. Blood work suggestive leukocytosis 11k, chronic anemia with hemoglobin 10.9, creatinine 3.2 (baseline 3 per record), glucose elevated 200, mild chronic troponin elevation 23.3, 24.4. Normal TSH, procalcitonin level. Urinalysis showed positive nitrate, 3+ blood,>50 wbc, 4+ bacteria. CT head showed no acute process. CT chest showed mild atelectasis but otherwise no acute process. CT abdomen showed large calcification Vs hyperdense debris's within the bladder lumen as well as intraluminal gas. Also showed moderate left hydronephrosis with associated left sided perinephric and periureteral Brech stranding/fluid. Blood, urine cultures pending. EKG showed normal sinus rhythm, right bundle branch block, left anterior fascicular block, QTc 500. Nonspecific septal T wave changes. On exam patient is lethargic, normocephalic atraumatic, R facial seborrheic keratosis, EOMI, normal breath sounds, clear to auscultation, S1-S2,+ murmur, abdomen soft, nontender, alert, awake, does not follow commands, unable to perform complete neurological exam, right BKA, left trace lower extremity edema, significant he aring loss. Patient is admitted for management of complicated UTI with obstructive uropathy, possible pyelonephritis, acute metabolic encephalopathy secondary to infection. Chronic troponin elevation in setting of CKD. Patient recently completed IV caspofungin treatment for Ratna UTI. Agree with starting on IV cefepime given history of Pseudomonas. Hanna catheter exchanged in ED. Blood, urine culture obtained. Bladder scan as needed. Continue finasteride, Flomax. Urology consulted. Neurochecks. Aspiration precautions, liquid diet for now. PT OT as able. Gentle IV fluids. Hold Lasix for now. Monitor renal function. If remains lethargic, consider MRI brain. Incentive spirometry for atelectasis. I personally interviewed and examined the patient at bedside. I have reviewed the advanced practitioner's documentation on the date of service referred in note and agree with plan. Patient's care is coordinated with Gilma Wood PA-C. Please refer to the documentation above for details of patient's presentation and for discussion of other issues. I spent a total [id number] coordinating, documenting, and providing care for this patient excluding time spent in the performance of separately billed services or time spent by another provider/QHP. (2) Catheter-associated urinary tract infection Encounter type: sequela Indwelling urinary catheter type: indwelling urethral catheter Qualified Code(s): T83.511S - Infection and inflammatory reaction due to indwelling urethral catheter, sequela; N39.0 - Urinary tract infection, site not specified
[2025-09-29] MEDS: CEFEPIME 1000MG 1,000 MG/10 ML SYR IV STA (12:03)
[2025-09-29] MEDS ORDERED: GLUCOSE 40% GEL 15 GM TUBE PO PRN (12:08)
[2025-09-29] MEDS ORDERED: CARBOHYDRATES FOR HYPOGLYCEMIA PO PRN (12:08)
[2025-09-29] MEDS ORDERED: PHARMACY GLYCEMIC MGMT CONSULT PRN (12:08)
[2025-09-29] MEDS ORDERED: GLUCOSE 10 TAB/TUBE PO PRN (12:08)
[2025-09-29] MEDS ORDERED: DEXTROSE 50% 50 ML SYRINGE IV PRN (12:08)
[2025-09-29] MEDS ORDERED: GLUCAGON FOR INJ 1 MG VIAL SQ PRN (12:08)
[2025-09-29] MEDS: CEFEPIME 1000MG 1,000 MG/10 ML SYR IV SCH (13:44)
[2025-09-29] MEDS: SODIUM CHLORIDE 0.9% 1,000 ML IV SCH (13:46)
[2025-09-29] MEDS ORDERED: ACETAMINOPHEN 325 MG TAB PO PRN (15:00)
[2025-09-29] MEDS ORDERED: MAGNESIUM HYDROXIDE SUSP 30 ML UDC PO PRN (15:00)
[2025-09-29] MEDS ORDERED: PROMETHAZINE 6.25 MG/50.25 ML BAG IV PRN (15:00)
--- NOTE | 2025-09-29 16:38 | Electrocardiogram Report ---
Test Reason : Blood Pressure : */* mmHG Vent. Rate : 83 BPM Atrial Rate : 83 BPM P-R Int : 170 ms QRS Dur : 132 ms QT Int : 426 ms P-R-T Axes : 0 -61 91 degrees QTcB Int : 500 ms Normal sinus rhythm Right bundle branch block Left anterior fascicular block Bifascicular block Left ventricular hypertrophy with repolarization abnormality Abnormal ECG When compared with ECG of 08-Aug-2025 16:52, MA interval has decreased Confirmed by Arron Jennings ([id number]) on 09/29/2025 4:38:27 PM Referred By: Confirmed By: Arron Jennings
--- NOTE | 2025-09-29 17:31 | Urology Consultation ---
Date of Consultation September 29, 2025 Assessment & Plan (1) BPH w urinary obs/LUTS: (2) Chronic retention of urine: Plan 80-year-old male who is currently admitted due to right lower quadrant abdominal pain and urinary urgency. He is known to the urologic service as he follows with Dr. Leong as he has chronic Hanna catheter bound. He has a known history of bilateral hydronephrosis. CT scan performed here showed Bilateral hydronephrosis with a reported increase in the left side. Bladder is distended with fluid and shows a Hanna catheter in the prostatic urethra however this was not called on imaging. They did call possible calcification in the bladder. I spoke with the nurse and they stated that catheter was exchanged in the ED but I cannot tell if this was done before or after the CT scan so I asked the patient if I could reposition it and he agreed Balloon was deflated and the catheter was hubbed to the bladder and the balloon was inflated and seated appropriately in the bladder Regarding his hydronephrosis, this is largely stable and he is asymptomatic and his kidney function is stable so no acute intervention necessary Maintain Hanna catheter Defer remainder of treatment to primary team Patient has follow-up already scheduled with urology and will keep that appointment Urology to sign off History of Present Illness Attending Physician: Bernardo Elizondo MD History of Present Illness 80-year-old male who is currently admitted due to right lower quadrant abdominal pain and urinary urgency. He is known to the urologic service as he follows with Dr. Leong as he has chronic Hanna catheter bound. He has a known history of bilateral hydronephrosis. CT scan performed here showed Bilateral hydronephrosis with a reported increase in the left side. Bladder is distended with fluid and shows a Hanna catheter in the prostatic urethra however this was not called on imaging. They did call possible calcification in the bladder. Labs show a leukocytosis of 11.02, creatinine of 3.20 which is roughly around his recent baseline. Urinalysis was grossly positive which is expected as he is colonized. Difficult to get a history from the patient as he is hard of hearing. Allergies Allergy/AdvReac Type Severity Reaction Status Date / Time lisinopril Allergy Severe Swelling Verified 08/30/25 13:16 of Face/Lips/Tongue hydrochlorothiazide Allergy Unknown Unknown - Unverified 08/30/25 13:16 On file w/ [facility] Home Medications Medication Instructions Recorded Confirmed Type insulin glargine 100 unit/mL (3 5 unit subcut HS 04/07/24 09/29/25 History mL) subcutaneous pen (Lantus Solostar U-100 Insulin) amitriptyline 10 mg tablet 30 mg PO HS 03/15/25 09/29/25 History atorvastatin 40 mg tablet 40 mg PO HS 03/15/25 09/29/25 History docusate sodium 100 mg tablet 100 mg PO AMHS 03/15/25 09/29/25 History finasteride 5 mg tablet 5 mg PO QAM 03/15/25 09/29/25 History glucagon 1 mg solution for 1 mg IM DIRECTED PRN 03/15/25 09/29/25 History injection (Glucagon Emergency Kit) Hypoglycemia pregabalin 75 mg capsule 75 mg PO AMHS 03/15/25 09/29/25 History sennosides 8.6 mg-docusate sodium 1 tab PO AMHS constipation 03/15/25 09/29/25 History 50 mg tablet (Senokot-S) tamsulosin 0.4 mg capsule 0.4 mg PO HS 03/15/25 09/29/25 History pantoprazole 40 mg tablet,delayed 40 mg PO BID #60 tabs 03/20/25 09/29/25 Rx release furosemide 20 mg tablet (Lasix) 20 mg PO QAM 08/08/25 09/29/25 History ipratropium 0.5 mg-albuterol 3 mg 3 ml inhalation Q4 PRN Shortness 08/08/25 09/29/25 History (2.5 mg base)/3 mL nebulization Of Breath Or Wheezing soln apixaban 2.5 mg tablet (Eliquis) 2.5 mg PO BID 09/29/25 09/29/25 History bisacodyl 10 mg rectal suppository 10 mg MI DAILY PRN Constipation 09/29/25 09/29/25 History (Dulcolax (bisacodyl)) insulin aspart U-100 100 unit/mL See Rx Instructions .Route .COMPLEX 09/29/25 09/29/25 History subcutaneous solution levothyroxine 75 mcg tablet 75 mcg PO DAILYBB 09/29/25 09/29/25 History magnesium hydroxide 400 mg/5 mL 30 ml PO DAILY PRN Constipation 09/29/25 09/29/25 History oral suspension (Milk of Magnesia) menthol 0.44 %-zinc oxide 20 % 1 ea topical BID 09/29/25 09/29/25 History topical ointment sodium phosphates 19 gram-7 118 ml MI DAILY PRN Constipation 09/29/25 09/29/25 History gram/118 mL enema (Fleet Enema) Patient History Medical History Encephalopathy Pyelonephritis Hydronephrosis, bilateral Asymptomatic hypertensive urgency Bilateral lower leg cellulitis Blister of finger Maggot infestation CESAR (acute kidney injury) Surgical History History of ear surgery age 19, mastoid H/O shoulder surgery S/P foot surgery, left Family History Brother Diabetes Social History Smoking Status: Former smoker Tobacco Type: Cigarettes Second Hand Exposure: No; Do You Dip or Chew Tobacco: No; Tobacco Cessation Education Requested by Patient: No Hx Alcohol Use: No Hx Substance Use: No Preferred Language: Azerbaijani Communication Ability: Effective Communication Ability Comment: Hearing Loss. Visual Impairment: Limited Hearing Ability: Use of Hearing Aid Final Finisher Required: No Beliefs That Will Affect Care: None marital status: Current Living Situation: Snf Current Living Situation Comment: [facility] current occupational status: retired How many Children do You have: 3 Other Information That Helps Us Care for You: No Feels Safe at Home: Yes Safety Concerns: Feels Safe At This Time during the past year weight has: remained stable Dental Care, Regularly: No Physical Activity Frequency: Does not Exercise Assistive Devices: Oxygen - Continuous Physical Exam Physical Exam: General: Alert and oriented, no acute distress HEENT: Normocephalic, mucous membranes moist Pulmonary: Nonlabored respirations Abdomen: Nondistended : Hanna draining arabella urine Extremities: Moves all 4 spontaneously Neuro: No gross deficits Skin: Warm, dry, no rashes noted Results & Data Vital Signs (Past 12 Hours) Vital Signs Temp Pulse Pulse Resp BP Pulse Ox O2 Del Method 09/29/25 16:37 Nasal Cannula 09/29/25 15:57 36.5 C 70 18 102/68 98 Nasal Cannula 09/29/25 15:00 71 09/29/25 14:09 74 09/29/25 12:42 78 20 109/65 96 Nasal Cannula 09/29/25 10:55 82 18 115/78 99 Nasal Cannula 09/29/25 10:01 85 09/29/25 09:50 37.1 C 90 20 134/95 93 Nasal Cannula O2 Flow Rate 09/29/25 16:37 2 09/29/25 15:57 2 09/29/25 15:00 09/29/25 14:09 09/29/25 12:42 2 09/29/25 10:55 2 09/29/25 10:01 09/29/25 09:50 2 PG Care Time/CCT Total # of Minutes Spent Total Time Spent with Patient: Total time spent is greater than 50% in coordination of care (as documented) at patient's floor/unit and/or counseling patient: Coding Level of Care Code 03591 INT INP/OBS CARE 2/55MIN Diagnoses BPH w urinary obs/LUTS N40.1; N13.8 Chronic retention of urine R33.9
[2025-09-29] MEDS: INSULIN ASPART PER UNIT CHARGE SC SCH (18:00)
[2025-09-29] MEDS: ATORVASTATIN 40 MG TAB PO SCH (20:16)
[2025-09-29] MEDS: PREGABALIN 75 MG CAP PO SCH (20:16)
[2025-09-29] MEDS: TAMSULOSIN HCL 0.4 MG CAP PO SCH (20:16)
[2025-09-29] MEDS: AMITRIPTYLINE HCL 10 MG TAB PO SCH (20:16)
[2025-09-29] MEDS: APIXABAN 2.5 MG TAB PO SCH (20:16)
[2025-09-29] MEDS: DOCUSATE SODIUM/SENNA 50/8.6MG TAB PO SCH (20:17)
[2025-09-29] MEDS: LANTUS PER UNIT CHARGE SQ SCH (20:17)
[2025-09-29] MEDS ORDERED: LANTUS PER UNIT CHARGE SQ SCH ×2 (21:00)
[2025-09-30 06:17] LABS: Hematocrit (blood only) 29.4 % (42.0-52.0); Hemoglobin 9.9 g/dL (14.0-18.0); Mean Corpuscular Hemoglobin 29.5 pg (25.0-34.0); Mean Corpuscular Volume 87.5 fL (80.0-100.0); Platelet Count 213 K/uL (130-400); RDW Standard Deviation 43.0 fL (36.4-46.3); Red Blood Count 3.36 M/uL (4.70-6.10); White Blood Count 10.41 K/ul (4.8-10.8)
[2025-09-30] MEDS: LEVOTHYROXINE SODIUM 75 MCG TABLET PO SCH (06:27)
[2025-09-30 06:33] LABS: Anion Gap 10.0 (3-11); Blood Urea Nitrogen 61.0 mg/dl (6-23); Calcium 8.5 mg/dl (8.6-10.3); Carbon Dioxide 28.0 mmol/L (21-32); Chloride 103.0 mmol/L (98-107); Creatinine Clr Calc Pharmacy 18.9 ml/min; Glucose 90.0 mg/dl (70-99(Fasting)); Magnesium 2.1 mg/dl (1.7-2.4); Potassium 3.5 mmol/L (3.5-5.1); Sodium 141.0 mmol/L (136-145)
[2025-09-30] MEDS: FINASTERIDE 5 MG TAB PO SCH (09:24)
[2025-09-30] MEDS: POLYETHYLENE (MIRALAX) 17 GM PACK PO PRN (09:24)
[2025-09-30] MEDS: CEFEPIME 1000MG 1,000 MG/10 ML SYR IV SCH (09:28)
--- NOTE | 2025-09-30 10:05 | Hospitalist Progress Note ---
Date of Service September 30, 2025 Assessment & Plan (1) Acute metabolic encephalopathy: (2) Catheter-associated urinary tract infection: (3) Chronic indwelling Hanna catheter: (4) Elevated troponin: Plan 80 yo M w/ PMH of insulin-dependent DM type II with polyneuropathy, diabetic ulcer of the toe of the right foot and osteomyelitis s/p right BKA, chronic renal insufficiency, HLD, paroxysmal A-fib anticoagulated on Eliquis, HTN, chronic HFpEF, chronic Hanna catheter placement secondary to BPH with chronic outlet obstruction and bilateral hydronephrosis, history of recurrent catheter associated UTIs, severe hearing loss, PAD, chronic respiratory failure on home O2, chronic anemia, history of MRSA, past tobacco abuse and severe aortic stenosis who presented to the ED from [facility] due to c/o RLQ abdominal pain/pressure and urinary urgency and noted to have UTI. CAUTI, possible L-sided pyelonephritis Acute metabolic encephalopathy: likely 2/2 above. Chronic Hanna catheter placement 2/2 BPH with chronic outlet obstruction and bilateral hydronephrosis Pt brought in d/t changes in baseline mentation and c/o RLQ pain. At presentation: extremely somnolent, difficult to arouse but does open eyes with sternal rub. At baseline: extremely YOCHA DEHE, AOx1-2, able to follow basic commands and answer direct questioning. Admitting CT head: no acute finding. Admitting CTAP: findings s/o cystitis, moderate left hydroureteronephrosis with associated left-sided perinephric and periureteric stranding/fluid. No obstructing stone or lesion is clearly seen. Continue to closely monitor and reorient patient as able. Adv diet as elisa, aspiration precautions. c/w cefepime 09/29, f/u bl and U cx. Uro evaled, hydronephrosis is stable, f/u w/ uro as OP. Hanna catheter exchanged in ED. Continue Proscar, Flomax. Elevated troponin: likely demand, flat trend. EKG appears grossly unchanged compared to prior. Continue telemetry monitoring. Chronic HFpEF: once appetite improve, resume home lasix. Monitor volume status, currently exams euvolemic. Chronic respiratory failure on home O2: On baseline 2L NC. Chronic renal insufficiency: Cr appears stable compared to prior, Cr trending around 2.8-3.3 over course of the past several months per chart review. Continue to monitor and avoid nephrotoxic agents as able. Mildly progressive atelectasis in the lung bases seen on chest CT: ISP ordered as patient tolerates. Insulin-dependent DMII Hemoglobin A1c 6.8% as of August 2025. Basal/bolus regimen while inpatient, follow BSG checks ACHS. Appreciate glycemic pharmacy consult for assistance with insulin management. Diabetic polyneuropathy: Continue Lyrica. Hypothyroidism: TSH WNL, continue current levothyroxine dosing. History of mood disorder: Continue amitriptyline. Other chronic medical conditions: HLD - Continue statin therapy. GERD - Continue PPI BID. Chronic anemia - H/H stable when compared to prior, continue to monitor. DVT Prophylaxis: Eliquis Code Status: DNR/DNI PCP: James Maria DO Disposition: c/w med/telemetry Admission and Anticipated Discharge Date Admission Date: September 29, 2025 Subjective Patient was seen and examined at bedside. Patient was lying in bed, on room air, NAD. Patient is very hard of hearing, denies pain. ROS not able in detail. Patient stated that he wants to eat, patient was sat up for his breakfast. Physical Exam Physical Exam: General/Neuro: Elderly M. Laying down in bed. Extremely YOCHA DEHE. awake and alert. On RA. HEENT: Skin growth seen on right cheek, possible seborrheic keratosis, with dried blood seen inferior to the growth. Oropharynx moist. Respiratory: Decreased breath sounds bilaterally, unable to follow inspiratory commands. Cardiovascular: RRR. + systolic mumur. -ve edema. Abdomen/GI: Normal bowel sounds, soft, nontender to palpation in all quadrants. Extremities/Musculoskeletal: + R BKA status. Not able to following extremity testing commands. Results & Data Results & Data Vital Signs (Past 12 Hours) Vital Signs Temp Pulse Pulse Resp BP BP Pulse Ox 09/30/25 08:14 76 09/30/25 07:41 36.9 C 73 16 109/65 100 09/30/25 02:59 36.6 C 75 16 145/76 H 99 09/29/25 22:34 36.3 C L 73 16 116/67 98 09/29/25 22:05 74 O2 Del Method O2 Flow Rate 09/30/25 08:14 09/30/25 07:41 Room Air 09/30/25 02:59 Nasal Cannula 2 09/29/25 22:34 Room Air 09/29/25 22:05
--- NOTE | 2025-09-30 13:06 | Pharmacy Report ---
Pharmacy Glycemic Short Note 2 - Date of Service September 30, 2025 - Glycemic Short BSG Results (Last 24 hours): 09/29/25 09/29/25 09/29/25 13:42 17:12 19:55 Glucose POC Glucose 206 H 168 H 222 H 09/30/25 09/30/25 09/30/25 05:42 08:29 12:04 Glucose 90 POC Glucose 130 H 233 H OUTPATIENT ANTIDIABETIC REGIMEN: * Insulin glargine 5 units SC HS * Insulin aspart SSI HbA1c: 6.8% (08/28/25) ASSESSMENT: * FA is an 80 year old male who presented to ED with right lower quadrant abdominal pain and urinary urgency (chronic yee catheter) * Will utilize recent inpatient glycemic data to guide initial insulin dosing * Receiving cefepime for CAUTI * T2DM diet ordered PLAN FOR INPATIENT GLYCEMIC CONTROL: * Basal insulin * Lantus 5-8 units SQ HS (see EHR for details) * Bolus insulin * NovoLog per scale ACHS or Q6hrs while NPO * Goal Range: Low 110 mg/dL - High 160 mg/dL * Correction Factor: 30 mg/dL/unit * Nutritional / Prandial insulin per carb ratio of 1 unit per 10 grams CHO consumed
[2025-09-30 23:19] VITALS: RESP 16
[2025-10-01 06:06] LABS: Hematocrit (blood only) 29.9 % (42.0-52.0); Hemoglobin 10.0 g/dL (14.0-18.0); Mean Corpuscular Hemoglobin 29.0 pg (25.0-34.0); Mean Corpuscular Volume 86.7 fL (80.0-100.0); Platelet Count 231 K/uL (130-400); RDW Standard Deviation 41.8 fL (36.4-46.3); Red Blood Count 3.45 M/uL (4.70-6.10); White Blood Count 8.36 K/ul (4.8-10.8)
[2025-10-01 06:27] LABS: Anion Gap 9.0 (3-11); Blood Urea Nitrogen 54.0 mg/dl (6-23); Calcium 8.8 mg/dl (8.6-10.3); Carbon Dioxide 29.0 mmol/L (21-32); Chloride 103.0 mmol/L (98-107); Creatinine Clr Calc Pharmacy 19.9 ml/min; Glucose 103.0 mg/dl (70-99(Fasting)); Magnesium 2.1 mg/dl (1.7-2.4); Potassium 3.3 mmol/L (3.5-5.1); Sodium 141.0 mmol/L (136-145)
[2025-10-01] MEDS: POTASSIUM CHLORIDE CRTAB 20 MEQ TABCR PO STA (08:03)
[2025-10-01 11:37] VITALS: TEMP 98.1; O2SAT 100
[2025-10-01 13:24] VITALS: BP 109/66
--- NOTE | 2025-10-01 13:38 | Discharge Summary ---
Date of Service October 01, 2025 Admission HPI Per Admitting Provider Patient is an 80-year-old male with past medical history significant for insulin-dependent DM type II with polyneuropathy, history of diabetic ulcer of the toe of the right foot and osteomyelitis s/p right BKA, chronic renal insufficiency, HLD, paroxysmal A-fib anticoagulated on Eliquis, HTN, chronic HFpEF, chronic Hanna catheter placement secondary to BPH with chronic outlet obstruction and bilateral hydronephrosis, history of recurrent catheter associated UTIs, severe hearing loss, PAD, chronic respiratory failure on home O2, chronic anemia, history of MRSA, past tobacco abuse and severe aortic stenosis who presented to the ED from [facility] due to c/o RLQ abdominal pain/pressure and urinary urgency. Unable to elicit any meaningful history from patient. Extremely somnolent, difficult to arouse but does open eyes with sternal rub. Extremely hard of hearing. Not following commands or answering direct questioning. Patient is a long-term care resident at [facility]. Did speak with one of the RNs from [facility] over the phone, Pablo, at [phone]. States patient is alert and oriented x 1-2 at baseline, able to answer direct questioning and follow basic commands. Reports that patient was complaining of right lower quadrant abdominal pain and pressure this morning. States catheter was functioning without issue. No reported fevers. No reported hematuria. Appetite grossly unchanged. Moving bowels okay. Mostly wheelchair-bound. Admission Exam Per Admitting Provider General/Neuro: Elderly M. Laying down in bed. Extremely [place]. Difficult to arouse. Opens eyes but not answering direct questions or following commands. HEENT: Skin growth seen on right cheek, possible seborrheic keratosis, with dried blood seen inferior to the growth. Oropharynx somewhat dry. Respiratory: Decreased breath sounds bilaterally, unable to follow inspiratory commands. On baseline 2L NC. Cardiovascular: RRR. + systolic mumur. Trace LLE edema. Abdomen/GI: Normal bowel sounds, soft, nontender to palpation in all quadrants. Extremities/Musculoskeletal: + R BKA status. Not able to following extremity testing commands. Principal Diagnosis CAUTI, possible L-sided pyelonephritis Acute metabolic encephalopathy: likely 2/2 above. resolved. Chronic Hanna catheter placement 2/2 BPH with chronic outlet obstruction and bilateral hydronephrosis Discharge Exam General/Neuro: Elderly M. Laying down in bed. Extremely [place]. awake and alert. On RA. HEENT: Skin growth seen on right cheek, possible seborrheic keratosis, with dried blood seen inferior to the growth. Oropharynx moist. Respiratory: Decreased breath sounds bilaterally, unable to follow inspiratory commands. Cardiovascular: RRR. + systolic mumur. -ve edema. Abdomen/GI: Normal bowel sounds, soft, nontender to palpation in all quadrants. Extremities/Musculoskeletal: + R BKA status. Not able to following extremity testing commands. Discharge Data Allergies Allergy/AdvReac Type Severity Reaction Status Date / Time lisinopril Allergy Severe Swelling Verified 08/30/25 13:16 of Face/Lips/Tongue hydrochlorothiazide Allergy Unknown Unknown - Unverified 08/30/25 13:16 On file w/ [facility] Consultations 09/29/25 11:52 ED Decision to Admit Stat 09/29/25 13:24 Consult Urology Routine Ordered Studies 09/29/25 09:55 CT abd pelvis wo con Stat CT chest diagnostic wo con Stat 09/29/25 09:56 CT head/brain wo con Stat Hospital Course (1) Acute metabolic encephalopathy: (2) Catheter-associated urinary tract infection: (3) Chronic indwelling Hanna catheter: (4) Elevated troponin: Plan 80 yo M w/ PMH of insulin-dependent DM type II with polyneuropathy, diabetic ulcer of the toe of the right foot and osteomyelitis s/p right BKA, chronic renal insufficiency, HLD, paroxysmal A-fib anticoagulated on Eliquis, HTN, chronic HFpEF, chronic Hanna catheter placement secondary to BPH with chronic outlet obstruction and bilateral hydronephrosis, history of recurrent catheter associated UTIs, severe hearing loss, PAD, chronic respiratory failure on home O2, chronic anemia, history of MRSA, past tobacco abuse and severe aortic stenosis who presented to the ED from [facility] due to c/o RLQ abdominal pain/pressure and urinary urgency and noted to have UTI. CAUTI, possible L-sided pyelonephritis Acute metabolic encephalopathy: likely 2/2 above. Chronic Hanna catheter placement 2/2 BPH with chronic outlet obstruction and bilateral hydronephrosis Pt brought in d/t changes in baseline mentation and c/o RLQ pain. At presentation: extremely somnolent, difficult to arouse but does open eyes with sternal rub. At baseline: extremely [place], AOx1-2, able to follow basic commands and answer direct questioning. Admitting CT head: no acute finding. Admitting CTAP: findings s/o cystitis, moderate left hydroureteronephrosis with associated left-sided perinephric and periureteric stranding/fluid. No obstructing stone or lesion is clearly seen. Mentation improved, urine culture with Proteus mirabilis sensitive to cephalosporins. Continue with p.o. cefdinir upon discharge to complete the course. Patient has been tolerating diet well and no new issues per RN. Urology has evaluated, hydronephrosis deemed stable and recommended follow-up with urology as an outpatient. Hanna catheter was exchanged in the ED, continue with home Proscar and Flomax. Elevated troponin: likely demand, flat trend. EKG appears grossly unchanged compared to prior. pt w/ no chest pain. Chronic HFpEF: c/w home lasix. Monitor volume status, currently exams euvolemic. Chronic respiratory failure on home O2: On baseline 2L NC. Chronic renal insufficiency: Cr appears stable compared to prior, Cr trending around 2.8-3.3 over course of the past several months per chart review. Continue to monitor and avoid nephrotoxic agents as able. Mildly progressive atelectasis in the lung bases seen on chest CT: ISP ordered as patient tolerates. Insulin-dependent DMII Hemoglobin A1c 6.8% as of August 2025. Basal/bolus regimen while inpatient, follow BSG checks ACHS. Appreciate glycemic pharmacy consult for assistance with insulin management. Diabetic polyneuropathy: Continue Lyrica. Hypothyroidism: TSH WNL, continue current levothyroxine dosing. History of mood disorder: Continue amitriptyline. Other chronic medical conditions: HLD - Continue statin therapy. GERD - Continue PPI BID. Chronic anemia - H/H stable when compared to prior, continue to monitor. DVT Prophylaxis: Eliquis Code Status: DNR/DNI PCP: James Maria DO Patient is being discharged to SNF with following instructions at the point of discharge: Follow-up with your primary care physician within a week time and likely you will need labs CBC/CMP/magnesium/phosphorus. You were diagnosed with urinary tract infection, you will be discharged on antibiotic to complete the course. Follow-up with urology as prior. Take your medications as prescribed. Please make sure that you are able to get your medications today by calling your pharmacy before you leave the hospital so that your treatment continuity is not broken. Home Health Attestation I certify that this patient is under my care and that I, or a physicians staffing assistant working with me, had a face to-face encounter that meets the home health [id number] encounter requirements with this patient. The encounter with the patient was in whole, or in part, for the following medical condition, which is the primary reason for home health care (list medical condition): I certify that, based on my findings, the following services are medically necessary home health services: My clinical findings support the need for the above services because: Further, I certify that my clinical findings support that this patient is homebound (i.e. absences from home require considerable and taxing effort and are for medical reasons or congregation services or infrequently or of short duration when for other reasons) because: Certification for Home Health Services: Based on the above findings, I certify that this patient is confined to the home and needs intermittent fpc care, physical therapy and/or speech therapy or continues to need occupational therapy. The patient is under my care, and I have initiated the establishment of the plan of care. This patient will be followed by a physician who will periodically review the plan of care. Total Time Total Time Spent Total Time Spent (In Minutes): 45 Discharge Plan Discharge Items Patient Disposition: Transfer Shelter Fac Reason For Visit: UTI Discharge Diagnosis: CAUTI, possible L-sided pyelonephritis Acute metabolic encephalopathy: likely 2/2 above. resolved. Chronic Hanna catheter placement 2/2 BPH with chronic outlet obstruction and bilateral hydronephrosis Condition on Discharge: Fair Activity: Resume your previous activity Non-emergency contact: Primary Care Provider Call non-emergency contact if: you have any medication questions and your symptoms worsen Follow-up/Referrals: [facility] [Primary Care Provider] - Diet: Carb Consistent or DM2 Diet Texture: Mechanical soft (ground) Addtl Attending Provider Instructions: Follow-up with your primary care physician within a week time and likely you will need labs CBC/CMP/magnesium/phosphorus. You were diagnosed with urinary tract infection, you will be discharged on antibiotic to complete the course. Follow-up with urology as prior. Take your medications as prescribed. Please make sure that you are able to get your medications today by calling your pharmacy before you leave the hospital so that your treatment continuity is not broken. Pending Studies at Discharge: Yes Stand-Alone Forms: My [facility] Skilled Items Patient informed of condition?: Yes DNR: Yes Discharge Level of Care: Skilled Communicable Disease: No Discharge Prognosis: Stable Lines: None Urinary Catheter: Yes Medications and DC Order Prescriptions: New cefdinir 300 mg capsule 300 mg PO DAILY 6 Days Qty: 6 0RF Continued insulin glargine [Lantus Solostar U-100 Insulin] 100 unit/mL (3 mL) insulin pen 5 unit SUBCUT HS furosemide [Lasix] 20 mg tablet 20 mg PO QAM ipratropium-albuterol 0.5 mg-3 mg(2.5 mg base)/3 mL Solution For Nebulization 3 ml INHALATION Q4 PRN (Reason: Shortness Of Breath Or Wheezing) amitriptyline 10 mg Tablet 30 mg PO HS Glucagon Emergency Kit (human) 1 mg Recon Soln 1 mg IM DIRECTED PRN (Reason: Hypoglycemia) docusate sodium 100 mg Tablet 100 mg PO AMHS pregabalin 75 mg Capsule 75 mg PO AMHS atorvastatin 40 mg tablet 40 mg PO HS sennosides-docusate sodium [Senokot-S] 8.6-50 mg tablet 1 tab PO AMHS finasteride 5 mg tablet 5 mg PO QAM tamsulosin 0.4 mg capsule 0.4 mg PO HS pantoprazole 40 mg tablet,delayed release (DR/EC) 40 mg PO BID Qty: 60 0RF levothyroxine 75 mcg tablet 75 mcg PO DAILYBB magnesium hydroxide [Milk of Magnesia] 400 mg/5 mL Suspension 30 ml PO DAILY PRN (Reason: Constipation) bisacodyl [Dulcolax (bisacodyl)] 10 mg Suppository 10 mg [place] DAILY PRN (Reason: Constipation) Fleet Enema 19-7 gram/118 mL Enema 118 ml [place] DAILY PRN (Reason: Constipation) menthol-zinc oxide 0.44-20 % Ointment 1 ea TOPICAL BID Rx Instructions: Applied to buttocks insulin aspart U-100 100 unit/mL solution See Rx Instructions .ROUTE .COMPLEX Rx Instructions: Subcutaneously before meals and at bedtime for DM. 350-400 = 8units; 401-450 = 12units; 451-500 = 16units; 501-550 = 18units. Recheck in 1 hour, report result to MD/COMMUNITY SERVICE DIRECTOR. BSG<90, BSG>551 Eliquis 2.5 mg tablet 2.5 mg PO BID Discharge Orders: Discharge Order (Routine); Ordered 10/01/25 Ordered By: Juarez Rodriges Admission Data Admit Date/Time: 09/29/25 12:01 Attending Provider: Juarez Rodriges Admit Provider: Bernardo Elizondo Primary Care Provider: [facility] Other Providers: Bernardo Elizondo Other Interventions: Discharge Summary Assessment (RN) Last Done: 10/01/25 13:22
[2025-10-01 14:01] VITALS: PULSE 74
[2025-10-01] MEDS ORDERED: LANTUS PER UNIT CHARGE SQ SCH (21:00)
[2025-10-02] MEDS ORDERED: FUROSEMIDE 20 MG TAB PO SCH (09:00)
== END 2025-10-01 14:59 | DRG 698 ==
LOC: ED 09:36 → 2N 12:01 → SUATTDRO 12:01 → 2N 14:36

== ENCOUNTER 2025-10-04 13:56 | Inpatient (IN) ==
[2025-10-04 14:34] LABS: Hematocrit (blood only) 33.7 % (42.0-52.0); Hemoglobin 10.9 g/dL (14.0-18.0); Immature Granulocytes # (auto) 0.06 K/uL (0.01-0.20); Immature Granulocytes % (auto) 0.4 %; Mean Corpuscular Hemoglobin 28.8 pg (25.0-34.0); Mean Corpuscular Volume 89.2 fL (80.0-100.0); Platelet Count 282 K/uL (130-400); RDW Standard Deviation 42.9 fL (36.4-46.3); Red Blood Count 3.78 M/uL (4.70-6.10); White Blood Count 13.99 K/ul (4.8-10.8)
--- NOTE | 2025-10-04 14:35 | Emergency Department Note ---
Impression & Plan Acute alteration in mental status, Acute UTI (urinary tract infection) ED Provider Note NAME: KATHARINE VANN AGE: 80 SEX: M ARRIVES VIA: Ambulance INFORMANT: [Patient][, ] ED PROVIDER(S): Ruben Sommer MD CHIEF COMPLAINT: General weakness, UTI PLAN: Disposition:Hospitalized Condition: Fair MEDICAL DECISION MAKING: Patient presents emergency department with altered mental status, concern for worsening UTI. Patient was recently admitted to the hospital and had a UTI sensitive to cephalosporins, was discharged on cefdinir. Patient typically is Oriented x 1 or 2 and can answer questions, he is more groggy and sleepy at this point and does not talk. Suspect he requires continued IV antibiotics, did repeat his CT scans not show any worsening of the infection, resolved hydronephrosis. No other obvious acute source seen of infection. There was evidence of abnormality in the bladder, calculus versus debris, patient's Hanna catheter was most recently changed during his last hospitalization. We will initiate further IV antibiotics and IV fluids and continue to monitor. Suspect he is failing outpatient oral antibiotics whether from lack of ability to take p.o. or worsening infection is unclear. Triage Nursing notes reviewed and agree them. [Additional history obtained from] [] [Prior medical records reviewed] [] Vital Signs: reviewed and remarkable for [no significant abnormalities] Differential diagnosis: Sepsis, UTI, dehydration, weakness ER treatment provided: IV fluids, IV antibiotics Diagnostics interpreted by me: ECG: [none] Cardiac Monitoring: Sinus rhythm with a rate of 88, no significant ectopy Laboratory studies: [See below] UTI, Hanna catheter in place however, slightly elevated white blood cell count, worsened from previous hospitalization Imaging studies: [See below]Improved hydronephrosis, continued cystitis Consultation(s): [none] HPI: 80/M arrives for evaluation of General weakness, altered mental status. Patient is currently being treated for a urinary tract infection, he is coming from the shelter. He is altered and generally not feeling well. Patient is unable to provide any history of present illness. Patient currently has a Hanna catheter in place. ROS: See above HPI for pertinent positives & negatives. A total of [10] systems reviewed and were otherwise negative. PAST MEDICAL HISTORY:[See Below] PAST SURGICAL HISTORY:[See Below] FAMILY HISTORY:[See Below] SOCIAL HISTORY:[See Below] HOME MEDICATIONS:[See Below] ALLERGIES:[See Below] VITALS:[See Below] PHYSICAL EXAMINATION: Gen: Patient generally ill-appearing, keeps his eyes closed, does respond to tactile stimuli Eyes: PERRL, no redness or injection, EOMI Neck: Supple, normal ROM CV: S1, S2, No murmurs, no lower extremity edema Pulm: CTA bilaterally, no increased work of breathing, no wheezing GI: Abd soft, nontender, normal bowel sounds, no distension : No CVA tenderness, no suprapubic abdominal tenderness or distension Neuro: No acute focal neuro deficits, normal strength and sensation Skin: No rashes, wounds, or erythema. ED COURSE: Times/Reassessments: 2:38 PM: Reviewed previous hospitalization, at that time he was found to have a urinary tract infection, signs of cystitis along with some left-sided hydro nephrosis, concerning for possible pyelonephritis or urinary tract infection or kidney stone that had passed. Was seen by urology and no interventions performed, was given antibiotics and discharged on oral antibiotics. Patient's mental status seems about what it was at that time as well. 4:30 PM: Attempted to call patient's and son who are listed as the primary point of contact, no answer, messages left. Per shelter report, patient not at his baseline mental status, we will start antibiotics and continue fluids here. Do not see any indication for urgent surgical or urological procedures at this point. There is evidence of a bladder calculus versus debris in the bladder but this seems partially unchanged from previous visit and was seen by urology during most recent hospitalization.Patient unable to participate much in history of present illness. 5:00 PM: Patient discussed with the hospitalist who are aware of the patient and they will evaluate and likely plan for hospitalization and continue fluids and antibiotics. He was noted to have a slight bump in his troponin which would likely need to be trended. Patient unable to provide any history so no indication for chest pain. Patient without any ST segment abnormality seen on EKG Ruben Sommer MD Past Med/Surg History Problem List (Updated 10/04/25 @ 17:03 by Ruben Sommer MD) Acute UTI (urinary tract infection) (Acute) Acute alteration in mental status (Acute) Acute kidney injury superimposed on CKD (Acute) Elevated troponin Acute metabolic encephalopathy Other obstructive and reflux uropathy (Chronic) Fungemia CESAR (acute kidney injury) (Acute) Anemia (Acute) Pneumonia (Acute) Acute alteration in mental status (Acute) Sepsis Shock Acute and chronic respiratory failure with hypoxia (Acute) Septic shock (Acute) Hypotension Chronic retention of urine (Chronic) BPH w urinary obs/LUTS (Chronic) Acute heart failure with preserved ejection fraction Aortic stenosis Atrial fibrillation with rapid ventricular response (Acute) Acute CHF (Acute) Acute respiratory failure with hypoxia (Acute) Acute kidney injury (CESAR) with acute tubular necrosis (ATN) Acute kidney injury superimposed on CKD S/P BKA (below knee amputation) unilateral Weakness (Acute) Symptomatic anemia (Acute) Catheter-associated urinary tract infection (Chronic) Diabetic foot ulcers Closed compression fracture of thoracic vertebra (Acute) Lymphedema (Chronic) Fall (Acute) Open wound of finger (Acute) Diabetic peripheral neuropathy associated with type 2 diabetes mellitus HTN (hypertension) Diabetic ulcer of right foot (Acute) Charcot foot due to diabetes mellitus Closed T12 fracture (Acute) Diabetic ulcer of left heel (Acute) Hyponatremia (Acute) Otitis externa of left ear Chronic indwelling Hanna catheter (Chronic) Otitis externa Ambulatory dysfunction Severe aortic stenosis Chronic heart failure with preserved ejection fraction (HFpEF) Ear drum perforation Severe hearing loss (Acute) Open wound of abdomen (Acute) Homeless (Acute) Edema of both legs Hypertension Paroxysmal atrial fibrillation Diabetes mellitus, type II (Chronic) Dyslipidemia Medical History Encephalopathy Pyelonephritis Hydronephrosis, bilateral Asymptomatic hypertensive urgency Bilateral lower leg cellulitis Blister of finger Maggot infestation CESAR (acute kidney injury) Surgical History History of ear surgery age 19, mastoid H/O shoulder surgery S/P foot surgery, left Family History Brother Diabetes Social History Smoking Status: Unknown if ever smoked Tobacco Type: Cigarettes Second Hand Exposure: No; Do You Dip or Chew Tobacco: No; Hx Alcohol Use: No Hx Substance Use: No Preferred Language: Monegasque Communication Ability: Unable Communication Ability Comment: Hearing Loss. Visual Impairment: Limited Hearing Ability: Use of Hearing Aid Bulb Inspector Required: No Beliefs That Will Affect Care: None marital status: Current Living Situation: [facility]Way Current Living Situation Comment: [facility] current occupational status: retired How many Children do You have: 3 Feels Safe at Home: Yes during the past year weight has: remained stable Dental Care, Regularly: No Physical Activity Frequency: Does not Exercise Assistive Devices: Wheelchair Allergies Allergies Allergy/AdvReac Type Severity Reaction Status Date / Time lisinopril Allergy Severe Swelling Verified 10/04/25 16:20 of Face/Lips/Tongue hydrochlorothiazide Allergy Unknown Unknown - Verified 10/04/25 16:20 On file w/ [facility] Home Meds Home Medications Medication Instructions Recorded Confirmed insulin glargine 100 unit/mL (3 5 unit subcut HS 04/07/24 10/04/25 mL) subcutaneous pen (Lantus Solostar U-100 Insulin) amitriptyline 10 mg tablet 30 mg PO HS 03/15/25 10/04/25 atorvastatin 40 mg tablet 40 mg PO HS 03/15/25 10/04/25 docusate sodium 100 mg tablet 100 mg PO BID 03/15/25 10/04/25 finasteride 5 mg tablet 5 mg PO QAM 03/15/25 10/04/25 glucagon 1 mg solution for 1 mg IM DIRECTED PRN 03/15/25 10/04/25 injection (Glucagon Emergency Kit) Hypoglycemia pregabalin 75 mg capsule 75 mg PO BID 03/15/25 10/04/25 sennosides 8.6 mg-docusate sodium 1 tab PO BID 03/15/25 10/04/25 50 mg tablet (Senokot-S) tamsulosin 0.4 mg capsule 0.4 mg PO HS 03/15/25 10/04/25 furosemide 20 mg tablet (Lasix) 20 mg PO QAM 08/08/25 10/04/25 ipratropium 0.5 mg-albuterol 3 mg 3 ml inhalation Q4 PRN Shortness 08/08/25 10/04/25 (2.5 mg base)/3 mL nebulization Of Breath Or Wheezing soln apixaban 2.5 mg tablet (Eliquis) 2.5 mg PO BID 09/29/25 10/04/25 bisacodyl 10 mg rectal suppository 10 mg TN DAILY PRN Constipation 09/29/25 10/04/25 (Dulcolax (bisacodyl)) insulin aspart U-100 100 unit/mL See Rx Instructions .Route .COMPLEX 09/29/25 10/04/25 subcutaneous solution levothyroxine 75 mcg tablet 75 mcg PO HS 09/29/25 10/04/25 magnesium hydroxide 400 mg/5 mL 30 ml PO DAILY PRN Constipation 09/29/25 10/04/25 oral suspension (Milk of Magnesia) menthol 0.44 %-zinc oxide 20 % 1 ea topical TID 09/29/25 10/04/25 topical ointment sodium phosphates 19 gram-7 118 ml TN DAILY PRN Constipation 09/29/25 10/04/25 gram/118 mL enema (Fleet Enema) acetaminophen 325 mg tablet 650 mg PO Q6H PRN TEMP >100/PAIN 10/04/25 10/04/25 (Tylenol) insulin aspart U-100 100 unit/mL 2 unit subcut TIDM 10/04/25 10/04/25 subcutaneous solution (Novolog U-100 Insulin aspart) metoprolol tartrate 25 mg tablet 12.5 mg PO BID 10/04/25 10/04/25 Previous Rx's Medication Instructions Recorded pantoprazole 40 mg tablet,delayed 40 mg PO BID #60 tabs 03/20/25 release cefdinir 300 mg capsule 300 mg PO DAILY 6 days #6 caps 10/01/25 Results & Data (ED) Vital Signs Vital Signs - 24 hr 10/04/25 13:47 10/04/25 14:18 10/04/25 14:23 Temperature 37.1 C Temperature Source Oral Pulse Rate 96 H 94 H 92 H Pulse Rate [Apical] Pulse Rhythm Regular Regular Pulse Rhythm [Apical] Pulse Strength Normal Pulse Strength [Apical] Respiratory Rate 21 18 Respiratory Effort / Characteristics Non-Labored Spontaneous Respiratory Depth Normal Respiratory Pattern Regular Blood Pressure 97/55 L Blood Pressure [Left Arm] Blood Pressure Mean 69 Blood Pressure Mean [Left Arm] Pulse Oximetry 97 97 Oxygen Delivery Method Nasal Cannula Nasal Cannula Oxygen Flow Rate 3 3 Sepsis New/Unexplained Change in Mental Status No Sepsis Action Taken by Nursing Physician Notified 10/04/25 14:23 10/04/25 15:15 10/04/25 17:00 Temperature Temperature Source Pulse Rate Pulse Rate [Apical] 93 H 93 H 87 Pulse Rhythm Pulse Rhythm [Apical] Regular Pulse Strength Pulse Strength [Apical] Normal Respiratory Rate 18 20 18 Respiratory Effort / Characteristics Non-Labored Respiratory Depth Normal Respiratory Pattern Blood Pressure Blood Pressure [Left Arm] 96/62 L 113/76 105/66 Blood Pressure Mean Blood Pressure Mean [Left Arm] 73 88 79 Pulse Oximetry 100 96 96 Oxygen Delivery Method Nasal Cannula Nasal Cannula Nasal Cannula Oxygen Flow Rate 3 3 2 Sepsis New/Unexplained Change in Mental Status Sepsis Action Taken by [facility] Medications Current Medication List: was personally reviewed by va Laboratory Data Attestation: I reviewed the patient's lab results. Mildly elevated white blood cell count, elevated creatinine, near baseline, evidence of urinary tract infection 10/04/25 14:15 10/04/25 14:15 Lab Results 10/04/25 10/04/25 10/04/25 Range/Units 14:15 14:23 15:31 WBC 13.99 H (4.8-10.8) K/ul RBC 3.78 L (4.70-6.10) M/uL Hgb 10.9 L (14.0-18.0) g/dL POC Hgb 11.2 L (14.0-18.0) g/dl Hct 33.7 L (42.0-52.0) % POC Hct 33 L (42-52) % MCV 89.2 (80.0-100.0) fL MCH 28.8 (25.0-34.0) pg MCHC 32.3 (32.0-36.0) g/dL RDW Std Deviation 42.9 (36.4-46.3) fL RDW Coeff of Scott 13.2 (11.5-14.5) % Plt Count 282 (130-400) K/uL MPV 9.9 (9.4-12.4) fL Immature Gran % (Auto) 0.4 % Neut % (Auto) 86.8 % Lymph % (Auto) 6.6 % [place] % (Auto) 5.6 % Eos % (Auto) 0.2 % Baso % (Auto) 0.4 % Neut # (Auto) 12.14 H (1.40-6.50) K/uL Lymph # (Auto) 0.93 L (1.20-3.40) K/uL [place] # (Auto) 0.78 H (0.11-0.59) K/uL Eos # (Auto) 0.03 (0.00-0.50) K/uL Baso # (Auto) 0.05 (0.00-0.20) K/uL Immature Gran # (Auto) 0.06 (0.01-0.20) K/uL VBG pH 7.29 L (7.36-7.41) VBG pCO2 61 H (38-50) mmHg VBG pO2 25 mmHg VBG HCO3 29 mmol/L VBG O2 Saturation < 60.0 % VBG Base Excess 1.2 mEq/L POC Sodium 144 (135-144) mmol/L Sodium 142 (136-145) mmol/L POC Potassium 3.5 (3.3-5.0) mmol/L Potassium 3.5 (3.5-5.1) mmol/L POC Chloride 101 (101-112) mmol/L Chloride 101 (98-107) mmol/L Carbon Dioxide 31 (21-32) mmol/L POC Total CO2 30 (24-31) mmol/L Anion Gap 10 (3-11) POC Anion Gap 17.0 (16-25) mmol/L POC BUN 48 H (7-18) mg/dl BUN 53 H (6-23) mg/dl Creatinine 3.01 H (0.6-1.4) mg/dl POC Creatinine 3.3 H (0.6-1.3) mg/dl Est Cr Clr Drug Dosing 19.0 ml/min eGFR 20.28 BUN/Creatinine Ratio 17.6 (10-20) Glucose 172 H (70-99(Fasting)) mg/dl POC Glucose (other) 162 H (70-99) mg/dl Lactate 2.0 (0.4-2.0) mmol/L Calcium 9.0 (8.6-10.3) mg/dl POC Ioniz Calcium Tho 1.16 (1.12-1.32) mmol/l Magnesium 2.0 (1.7-2.4) mg/dl Total Bilirubin 0.4 (0.2-1.0) mg/dl Direct Bilirubin 0.1 (0-0.2) mg/dl AST 15 (13-39) U/L ALT 11 (7-52) U/L Alkaline Phosphatase 66 (34-104) U/L Troponin I High Sens 47.7 H (0-20) pg/ml Total Protein 7.9 (6.0-8.3) gm/dl Albumin 3.4 (3.4-5.0) gm/dl Procalcitonin 0.25 (0-0.5) ng/ml Urine Color Yellow Urine Appearance Turbid A (Clear) Urine pH 5.0 (4.5-7.5) Ur Specific [place] 1.019 (1.000-1.030) Urine Protein 2+ H (Negative) Urine Glucose (UA) Negative (Negative) Urine Ketones Trace H (Negative) Urine Blood 2+ H (Negative) Urine Nitrite Negative (Negative) Urine Bilirubin Negative (Negative) Urine Urobilinogen Negative (Negative) Ur Leukocyte Esterase 3+ H (Negative) Urine WBC (Auto) >50 H (0-5) /hpf Urine RBC (Auto) 6-10 H (0-2) /hpf U Hyaline Cast (Auto) >20 H (0-2) /lpf U Epithel Cells (Auto) 3-5 H (0-2) /hpf Urine Bacteria (Auto) 2+ H (None Seen) Amorphous Sediment Present A (None Prsent) Urine Comment 10/04/25 Range/Units 15:59 WBC (4.8-10.8) K/ul RBC (4.70-6.10) M/uL Hgb (14.0-18.0) g/dL POC Hgb (14.0-18.0) g/dl Hct (42.0-52.0) % POC Hct (42-52) % MCV (80.0-100.0) fL MCH (25.0-34.0) pg MCHC (32.0-36.0) g/dL RDW Std Deviation (36.4-46.3) fL RDW Coeff of Scott (11.5-14.5) % Plt Count (130-400) K/uL MPV (9.4-12.4) fL Immature Gran % (Auto) % Neut % (Auto) % Lymph % (Auto) % [place] % (Auto) % Eos % (Auto) % Baso % (Auto) % Neut # (Auto) (1.40-6.50) K/uL Lymph # (Auto) (1.20-3.40) K/uL [place] # (Auto) (0.11-0.59) K/uL Eos # (Auto) (0.00-0.50) K/uL Baso # (Auto) (0.00-0.20) K/uL Immature Gran # (Auto) (0.01-0.20) K/uL VBG pH (7.36-7.41) VBG pCO2 (38-50) mmHg VBG pO2 mmHg VBG HCO3 mmol/L VBG O2 Saturation % VBG Base Excess mEq/L POC Sodium (135-144) mmol/L Sodium (136-145) mmol/L POC Potassium (3.3-5.0) mmol/L Potassium (3.5-5.1) mmol/L POC Chloride (101-112) mmol/L Chloride (98-107) mmol/L Carbon Dioxide (21-32) mmol/L POC Total CO2 (24-31) mmol/L Anion Gap (3-11) POC Anion Gap (16-25) mmol/L POC BUN (7-18) mg/dl BUN (6-23) mg/dl Creatinine (0.6-1.4) mg/dl POC Creatinine (0.6-1.3) mg/dl Est Cr Clr Drug Dosing ml/min eGFR BUN/Creatinine Ratio (10-20) Glucose (70-99(Fasting)) mg/dl POC Glucose (other) (70-99) mg/dl Lactate (0.4-2.0) mmol/L Calcium (8.6-10.3) mg/dl POC Ioniz Calcium Tho (1.12-1.32) mmol/l Magnesium (1.7-2.4) mg/dl Total Bilirubin (0.2-1.0) mg/dl Direct Bilirubin (0-0.2) mg/dl AST (13-39) U/L ALT (7-52) U/L Alkaline Phosphatase (34-104) U/L Troponin I High Sens 83.2 H* D (0-20) pg/ml Total Protein (6.0-8.3) gm/dl Albumin (3.4-5.0) gm/dl Procalcitonin (0-0.5) ng/ml Urine Color Urine Appearance (Clear) Urine pH (4.5-7.5) Ur Specific [place] (1.000-1.030) Urine Protein (Negative) Urine Glucose (UA) (Negative) Urine Ketones (Negative) Urine Blood (Negative) Urine Nitrite (Negative) Urine Bilirubin (Negative) Urine Urobilinogen (Negative) Ur Leukocyte Esterase (Negative) Urine WBC (Auto) (0-5) /hpf Urine RBC (Auto) (0-2) /hpf U Hyaline Cast (Auto) (0-2) /lpf U Epithel Cells (Auto) (0-2) /hpf Urine Bacteria (Auto) (None Seen) Amorphous Sediment (None Prsent) Urine Comment Administered Medications Discontinued Medications Sodium Chloride (Nss) 1,000 mls @ 999 mls/hr IV .Q1H1M DARIN Stop: 10/04/25 15:30 Last Infusion: 10/04/25 15:45 Dose: Infused Documented By: [id number] Admin: 10/04/25 14:50 Dose: 999 mls/hr Documented By: TDM Ceftriaxone Sodium (Rocephin) 1,000 mg in 50 mls @ 100 mls/hr IV NOW STA Stop: 10/04/25 15:59 Last Infusion: 10/04/25 16:03 Dose: Infused Documented By: [id number] Admin: 10/04/25 15:41 Dose: 100 mls/hr Documented By: [id number] Imaging Data Attestation: I personally reviewed and interpreted this imaging study as follows: My Impression: No acute infectious process, CT abdomen pelvis shows debris versus calculus, cystitis, resolved hydronephrosis Radiologist's Impression: Chest X-Ray 10/04/25 14:23 XR chest 1V portable HISTORY: 80 years-old Male Sepsis acute sepsis COMPARISON: Chest CT 09/29/2025 TECHNIQUE: AP view of the chest FINDINGS: Cardiac silhouette is upper limits of normal in size. Unchanged linear subsegmental areas of left lung predominant atelectasis/scarring. No pneumothorax, pleural effusion or overt pulmonary edema. The bones appear grossly intact. IMPRESSION: No acute process. ACT 112: Negative or not required by law. The above report was generated using voice recognition software. It may contain grammatical, syntax or spelling errors. Electronically signed by: Fabio Simmons M.D. 10/04/2025 3:09 PM Abdomen/Pelvis CT 10/04/25 15:[address] WITHOUT CONTRAST CT DOSE: 1610.66 mGy.cm HISTORY: Acute sepsis with urinary tract infection sepsis, uti, worsening, recent pyelonephritis TECHNIQUE: Multiaxial CT images of the abdomen and pelvis were performed without contrast. A dose lowering technique was utilized adhering to the principles of ALARA. COMPARISON STUDY: 09/29/2025 FINDINGS: Cardiomegaly with coronary artery calcifications. Trace pleural effusions with subsegmental bibasilar opacities favoring atelectasis. A mild pneumonitis could appear similarly. Respiratory motion artifact limits the study. No pneumatosis or pneumoperitoneum. The unenhanced spleen, atrophic pancreas and adrenal glands are unchanged and within normal limits. Gallbladder and liver are unremarkable. Mild nonspecific bilateral perinephric stranding. Resolution of the previously described left-sided hydronephrosis. No perinephric fluid collections to suggest abscess. Decompressed bladder with Hanna catheter in place. 3 cm hyperdense focus within the bladder lumen is again noted along with intraluminal air and debris. A portion of the urinary bladder partially extends into the moderate sized fat filled right inguinal hernia. Atherosclerosis of the aorta. No lymphadenopathy. Tiny hiatal hernia. Moderate colonic fecal retention with mild circumferential wall thickening of the rectum. Colonic diverticulosis without acute diverticulitis. Normal appendix. Chronic compression deformities of T12 and L1 are similar to previous. There is corresponding hyperkyphosis at this level. There is also minimal chronic superior endplate compression deformity of T10. No acute fracture. IMPRESSION: 1. Abnormal appearance of the urinary bladder with 3 cm intraluminal hyperdense debris versus calculus again noted. Correlate with urinalysis. A portion of the bladder partially extends into the fat filled right inguinal hernia. 2. Resolution of the previously noted left-sided hydronephrosis. 3. Constipation with findings suggestive of mild stercoral proctitis. 4. Trace pleural effusions with mild bibasilar opacities which may represents atelectasis versus pneumonitis. ACT 112: Negative or not required by law. The above report was generated using voice recognition software. It may contain grammatical, syntax or spelling errors. Electronically signed by: Fabio Simmons M.D. 10/04/2025 4:07 PM Discharge Plan Visit Data Chief Complaint: Infection Stated Complaint: infection ED Provider: Ruben Sommer Discharge Problem: Acute alteration in mental status, Acute UTI (urinary tract infection) Patient Disposition: Being Evaluated by Hospitalist Condition: Serious Forms Stand Alone Forms: [facility] Prescriptions Prescriptions: No Action insulin glargine [Lantus Solostar U-100 Insulin] 100 unit/mL (3 mL) insulin pen 5 unit SUBCUT HS furosemide [Lasix] 20 mg tablet 20 mg PO QAM ipratropium-albuterol 0.5 mg-3 mg(2.5 mg base)/3 mL Solution For Nebulization 3 ml INHALATION Q4 PRN (Reason: Shortness Of Breath Or Wheezing) acetaminophen [Tylenol] 325 mg Tablet 650 mg PO Q6H MDD 3 GRAMS APAP/24 HOURS PRN (Reason: TEMP >100/PAIN) insulin aspart U-100 [Novolog U-100 Insulin aspart] 100 unit/mL Solution 2 unit SUBCUT TIDM metoprolol tartrate 25 mg Tablet 12.5 mg PO BID Rx Instructions: STARTING 10/03/25 WITH PM DOSE. HOLD FOR HR < 60 amitriptyline 10 mg Tablet 30 mg PO HS Glucagon Emergency Kit (human) 1 mg Recon Soln 1 mg IM DIRECTED PRN (Reason: Hypoglycemia) docusate sodium 100 mg Tablet 100 mg PO BID pregabalin 75 mg Capsule 75 mg PO BID atorvastatin 40 mg tablet 40 mg PO HS sennosides-docusate sodium [Senokot-S] 8.6-50 mg tablet 1 tab PO BID finasteride 5 mg tablet 5 mg PO QAM tamsulosin 0.4 mg capsule 0.4 mg PO HS pantoprazole 40 mg tablet,delayed release (DR/EC) 40 mg PO BID Qty: 60 0RF levothyroxine 75 mcg tablet 75 mcg PO HS magnesium hydroxide [Milk of Magnesia] 400 mg/5 mL Suspension 30 ml PO DAILY PRN (Reason: Constipation) bisacodyl [Dulcolax (bisacodyl)] 10 mg Suppository 10 mg TN DAILY PRN (Reason: Constipation) Fleet Enema 19-7 gram/118 mL Enema 118 ml TN DAILY PRN (Reason: Constipation) menthol-zinc oxide 0.44-20 % Ointment 1 ea TOPICAL TID Rx Instructions: Applied to buttocks insulin aspart U-100 100 unit/mL solution See Rx Instructions .ROUTE .COMPLEX Rx Instructions: Subcutaneously before meals and at bedtime for DM. 350-400 = 8units; 401-450 = 12units; 451-500 = 16units; 501-550 = 18units. Recheck in 1 hour, report result to MD/INNER DIAMETER GRINDER TOOL. BSG<90, BSG>551 Eliquis 2.5 mg tablet 2.5 mg PO BID cefdinir 300 mg capsule 300 mg PO DAILY 6 Days Qty: 6 0RF Rx Instructions: STARTED 10/02/25, ENDS 10/07/25 Referrals Referrals: [facility] [Primary Care Provider] -
[2025-10-04 14:45] LABS: Appearance Urine Turbid (Clear); Bacteria Urine Automated 2+ (None Seen); Cast Urine Automated >20 /lpf (0-2); Glucose Urine UA Negative (Negative); WBC Urine Automated >50 /hpf (0-5)
[2025-10-04] MEDS: SODIUM CHLORIDE 0.9% 1,000 ML IV SCH ×2 (14:50→19:40)
[2025-10-04 14:54] LABS: Alanine Aminotransferase 11.0 U/L (7-52); Albumin Level 3.4 gm/dl (3.4-5.0); Alkaline Phosphatase 66.0 U/L (34-104); Anion Gap 10.0 (3-11); Bilirubin,Total 0.4 mg/dl (0.2-1.0); Blood Urea Nitrogen 53.0 mg/dl (6-23); Calcium 9.0 mg/dl (8.6-10.3); Carbon Dioxide 31.0 mmol/L (21-32); Chloride 101.0 mmol/L (98-107); Creatinine Clr Calc Pharmacy 19.0 ml/min; Glucose 172.0 mg/dl (70-99(Fasting)); Magnesium 2.0 mg/dl (1.7-2.4); Potassium 3.5 mmol/L (3.5-5.1); Sodium 142.0 mmol/L (136-145); Total Protein 7.9 gm/dl (6.0-8.3)
--- NOTE | 2025-10-04 15:11 | XRay Report ---
XR chest 1V portable HISTORY: 80 years-old Male Sepsis acute sepsis COMPARISON: Chest CT 09/29/2025 TECHNIQUE: AP view of the chest FINDINGS: Cardiac silhouette is upper limits of normal in size. Unchanged linear subsegmental areas of left rocky g predominant atelectasis/scarring. No pneumothorax, pleural effusion or overt pulmonary edema. The b ones appear grossly intact. IMPRESSION: No acute process. ACT 112: Negative or not required by law. The above report was generated using voice recognition software. It may contain grammatical, syntax o r spelling errors. Electronically signed by: Fabio Simmons M.D. 10/04/2025 3:09 PM
[2025-10-04 15:40] LABS: Base Excess VBG 1.2 mEq/L; HCO3 VBG 29 mmol/L; Oxygen Saturation VBG < 60.0 %; PCO2 VBG 61 mmHg (38-50); PO2 VBG 25 mmHg; pH VBG 7.29 (7.36-7.41)
[2025-10-04] MEDS: cefTRIAXone SODIUM 1,000 MG/50 ML BAG IV STA (15:41)
--- NOTE | 2025-10-04 16:09 | CT Scan Report ---
ABDOMEN AND PELVIS CT WITHOUT CONTRAST CT DOSE: 1610.66 mGy.cm HISTORY: Acute sepsis with urinary tract infection sepsis, uti, worsening, recent pyelonephritis TECHNIQUE: Multiaxial CT images of the abdomen and pelvis were performed without contrast. A dose lo wering technique was utilized adhering to the principles of ALARA. COMPARISON STUDY: 09/29/2025 FINDINGS: Cardiomegaly with coronary artery calcifications. Trace pleural effusions with subsegmental bibasilar opacities favoring atelectasis. A mild pneumonitis could appear similarly. Respiratory mot ion artifact limits the study. No pneumatosis or pneumoperitoneum. The unenhanced spleen, atrophic pancreas and adrenal glands are u nchanged and within normal limits. Gallbladder and liver are unremarkable. Mild nonspecific bilateral perinephric stranding. Resolution of the previously described left-sided hydronephrosis. No perineph anoop fluid collections to suggest abscess. Decompressed bladder with Hanna catheter in place. 3 cm hyp erdense focus within the bladder lumen is again noted along with intraluminal air and debris. A porti on of the urinary bladder partially extends into the moderate sized fat filled right inguinal hernia. Atherosclerosis of the aorta. No lymphadenopathy. Tiny hiatal hernia. Moderate colonic fecal retentio n with mild circumferential wall thickening of the rectum. Colonic diverticulosis without acute diver ticulitis. Normal appendix. Chronic compression deformities of T12 and L1 are similar to previous. Th ere is corresponding hyperkyphosis at this level. There is also minimal chronic superior endplate com pression deformity of T10. No acute fracture. IMPRESSION: 1. Abnormal appearance of the urinary bladder with 3 cm intraluminal hyperdense debris versus calculu s again noted. Correlate with urinalysis. A portion of the bladder partially extends into the fat dewayne led right inguinal hernia. 2. Resolution of the previously noted left-sided hydronephrosis. 3. Constipation with findings suggestive of mild stercoral proctitis. 4. Trace pleural effusions with mild bibasilar opacities which may represents atelectasis versus pneu monitis. ACT 112: Negative or not required by law. The above report was generated using voice recognition software. It may contain grammatical, syntax o r spelling errors. Electronically signed by: Fabio Simmons M.D. 10/04/2025 4:07 PM
--- NOTE | 2025-10-04 16:58 | History & Physical Report ---
Date of Service October 04, 2025 Assessment & Plan (1) Metabolic encephalopathy: (2) Sepsis: Plan Patient is an 80-year-old male with past medical history significant for insulin-dependent DM type II with polyneuropathy, history of diabetic ulcer of the toe of the right foot and osteomyelitis s/p right BKA, CKD-4, HLD, paroxysmal A-fib anticoagulated on Eliquis, HTN, chronic HFpEF, chronic Yee catheter placement secondary to BPH with chronic outlet obstruction and bilate ral hydronephrosis, history of recurrent catheter associated UTIs, severe hearing loss, PAD, chronic respiratory failure on home O2, chronic anemia, history of MRSA, & past tobacco abuse who presented to the ED from [facility] due to worsened AMS, hypoxia and episode of vomiting. #Sepsis #Witnessed aspirating event #Possible Aspiration pneumonia #Metabolic encephalopathy pt appears toxic on exam, sepsis picture with leukocytosis, initial hypotension, tachycardia RN at [facility] reports pt choking on milk and then he vomited. He then became short of breath and was coughing. No reported fever. Chronically on 2L but did become more hypoxic in low 80s with increased O2 requirement. In Ed was able to be weaned to normal O2 requirement of 2L Ddx of encephalopathy felt likely 2/2 possible asp pna as well as constipation blood and urine cultures obtain cover empirically with IV zoysn and vanco obtain CT Chest to eval for aspiration pneumonitis --CT abd/pelvis:. Abnormal appearance of the urinary bladder with 3 cm intraluminal hyperdense debris versus calculus again noted. Correlate with urinalysis. A portion of the bladder partially extends into the fat filled right inguinal hernia. procal 0.25, lactic 2.0, BNP ordered Urine appears dirty; however chronic yee, will await culture obtain respiratory viral panel Pt received 1L of IVF in ED, pt with evidence of increased edema to upper extremities and BP stable, will hold on further fluid for now and give 1 dose of IV lasix. #CA-UTI POA #Chronic yee 2/2 BPH with chronic outlet obs CT w/ resolution of hydronephrosis, chronic bladder findings pt follows with urology recent hospital stay with proteus UTI, will be covered with pip/tazo #Probable Acute/Chronic HFpEF pt with know diastolic dys pt with increased swelling to upper extremities, pleural effusion will give one time dose of lasix and monitor in setting of infection #Constipation/Proctitis bowel regimen #CKD-4 baseline cr 2.8-3.3 renal fxn around baseline #Elevated troponin suspect demand ischemia, will trend trops recent echo in august LVEF 50-55%, mild aortic regurg #Chronic resp failure on 2L of O2 at baseline #T2DM insulin dependent last a1c 6.8 continue lantus/novolog per protocol DVT Prophylaxis: Eliquis Code Status: DNR/DNI - Confirmed with paperwork provided by [facility]. PCP: Isai Garcia, [facility] - pt is a permanent resident at [facility] Disposition: Admit to PCU Patient seen in collaboration with Dr. Sanches. Please see addendum. I spent a total of 61 minutes coordinating, documenting, and providing care for this patient excluding time spent in the performance of separately billed services or time spent by another provider/QHP. This included personally reviewing all current laboratories and imaging studies, medical reconciliation, outpatient chart review and discussion with specialists. History of Present Illness Chief Complaint: altered mental status and episode of hypoxia Primary Care Provider: [facility] Patient is an 80-year-old male with past medical history significant for insulin-dependent DM type II with polyneuropathy, history of diabetic ulcer of the toe of the right foot and osteomyelitis s/p right BKA, CKD-4, HLD, paroxysmal A-fib anticoagulated on Eliquis, HTN, chronic HFpEF, chronic Yee catheter placement secondary to BPH with chronic outlet obstruction and bilateral hydronephrosis, history of recurrent catheter associated UTIs, severe hearing loss, PAD, chronic respiratory failure on home O2, chronic anemia, history of MRSA, & past tobacco abuse who presented to the ED from [facility] due to worsened AMS, hypoxia and episode of vomiting. History is unobtainable from patient secondary to underlying cognition. History obtained from ED provider along with staff at [facility]. Of significance patient was recently hospitalized 09/29 to 10/01 secondary to altered mental status, catheter associated UTI secondary to Proteus mirabilis and elevated troponin. His urinary catheter was exchanged during this hospital stay. He was also seen and evaluated by urology due to concern for left hydronephrosis which was felt to be chronic in nature. He transition to oral cefdinir and was discharged back to facility on 10/01. [facility] reports that they feel he may have been discharged too early. Staff noted today that he started choking on milk. He then became increasingly more lethargic, short of breath and oxygen saturations were in the 80s. In ED patient was lethargic but arousable. He was alert to himself only. ED nurse reports being able to wean patient back to his normal 2 L of oxygen. He did receive a nebulizer treatment in the ED. ROS unobtainable from patient. Allergies Allergy/AdvReac Type Severity Reaction Status Date / Time lisinopril Allergy Severe Swelling Verified 10/04/25 16:20 of Face/Lips/Tongue hydrochlorothiazide Allergy Unknown Unknown - Verified 10/04/25 16:20 On file w/ [facility] Home Medications Medication Instructions Recorded Confirmed Type insulin glargine 100 unit/mL (3 5 unit subcut HS 04/07/24 10/04/25 History mL) subcutaneous pen (Lantus Solostar U-100 Insulin) amitriptyline 10 mg tablet 30 mg PO HS 03/15/25 10/04/25 History atorvastatin 40 mg tablet 40 mg PO HS 03/15/25 10/04/25 History docusate sodium 100 mg tablet 100 mg PO BID 03/15/25 10/04/25 History finasteride 5 mg tablet 5 mg PO QAM 03/15/25 10/04/25 History glucagon 1 mg solution for 1 mg IM DIRECTED PRN 03/15/25 10/04/25 History injection (Glucagon Emergency Kit) Hypoglycemia pregabalin 75 mg capsule 75 mg PO BID 03/15/25 10/04/25 History sennosides 8.6 mg-docusate sodium 1 tab PO BID 03/15/25 10/04/25 History 50 mg tablet (Senokot-S) tamsulosin 0.4 mg capsule 0.4 mg PO HS 03/15/25 10/04/25 History pantoprazole 40 mg tablet,delayed 40 mg PO BID #60 tabs 03/20/25 10/04/25 Rx release furosemide 20 mg tablet (Lasix) 20 mg PO QAM 08/08/25 10/04/25 History ipratropium 0.5 mg-albuterol 3 mg 3 ml inhalation Q4 PRN Shortness 08/08/25 10/04/25 History (2.5 mg base)/3 mL nebulization Of Breath Or Wheezing soln apixaban 2.5 mg tablet (Eliquis) 2.5 mg PO BID 09/29/25 10/04/25 History bisacodyl 10 mg rectal suppository 10 mg KY DAILY PRN Constipation 09/29/25 10/04/25 History (Dulcolax (bisacodyl)) insulin aspart U-100 100 unit/mL See Rx Instructions .Route .COMPLEX 09/29/25 10/04/25 History subcutaneous solution levothyroxine 75 mcg tablet 75 mcg PO HS 09/29/25 10/04/25 History magnesium hydroxide 400 mg/5 mL 30 ml PO DAILY PRN Constipation 09/29/25 10/04/25 History oral suspension (Milk of Magnesia) menthol 0.44 %-zinc oxide 20 % 1 ea topical TID 09/29/25 10/04/25 History topical ointment sodium phosphates 19 gram-7 118 ml KY DAILY PRN Constipation 09/29/25 10/04/25 History gram/118 mL enema (Fleet Enema) cefdinir 300 mg capsule 300 mg PO DAILY 6 days #6 caps 10/01/25 10/04/25 Rx acetaminophen 325 mg tablet 650 mg PO Q6H PRN TEMP >100/PAIN 10/04/25 10/04/25 History (Tylenol) insulin aspart U-100 100 unit/mL 2 unit subcut TIDM 10/04/25 10/04/25 History subcutaneous solution (Novolog U-100 Insulin aspart) metoprolol tartrate 25 mg tablet 12.5 mg PO BID 10/04/25 10/04/25 History Past Med/Surg History Problem List (Updated 10/04/25 @ 18:01 by Marga Le PA-C) Metabolic encephalopathy Acute UTI (urinary tract infection) (Acute) Acute alteration in mental status (Acute) Acute kidney injury superimposed on CKD (Acute) Elevated troponin Acute metabolic encephalopathy Other obstructive and reflux uropathy (Chronic) Fungemia CESAR (acute kidney injury) (Acute) Anemia (Acute) Pneumonia (Acute) Acute alteration in mental status (Acute) Sepsis Shock Acute and chronic respiratory failure with hypoxia (Acute) Septic shock (Acute) Hypotension Chronic retention of urine (Chronic) BPH w urinary obs/LUTS (Chronic) Acute heart failure with preserved ejection fraction Aortic stenosis Atrial fibrillation with rapid ventricular response (Acute) Acute CHF (Acute) Acute respiratory failure with hypoxia (Acute) Acute kidney injury (CESAR) with acute tubular necrosis (ATN) Acute kidney injury superimposed on CKD S/P BKA (below knee amputation) unilateral Weakness (Acute) Symptomatic anemia (Acute) Catheter-associated urinary tract infection (Chronic) Diabetic foot ulcers Closed compression fracture of thoracic vertebra (Acute) Lymphedema (Chronic) Fall (Acute) Open wound of finger (Acute) Diabetic peripheral neuropathy associated with type 2 diabetes mellitus HTN (hypertension) Diabetic ulcer of right foot (Acute) Charcot foot due to diabetes mellitus Closed T12 fracture (Acute) Diabetic ulcer of left heel (Acute) Hyponatremia (Acute) Otitis externa of left ear Chronic indwelling Yee catheter (Chronic) Otitis externa Ambulatory dysfunction Severe aortic stenosis Chronic heart failure with preserved ejection fraction (HFpEF) Ear drum perforation Severe hearing loss (Acute) Open wound of abdomen (Acute) Homeless (Acute) Edema of both legs Hypertension Paroxysmal atrial fibrillation Diabetes mellitus, type II (Chronic) Dyslipidemia Medical History Encephalopathy Pyelonephritis Hydronephrosis, bilateral Asymptomatic hypertensive urgency Bilateral lower leg cellulitis Blister of finger Maggot infestation CESAR (acute kidney injury) Surgical History History of ear surgery age 19, mastoid H/O shoulder surgery S/P foot surgery, left Family History Brother Diabetes Social History Smoking Status: Unknown if ever smoked Tobacco Type: Cigarettes Second Hand Exposure: No; Do You Dip or Chew Tobacco: No; Hx Alcohol Use: No Hx Substance Use: No Preferred Language: Croatian Communication Ability: Unable Communication Ability Comment: Hearing Loss. Visual Impairment: Limited Hearing Ability: Use of Hearing Aid Licensed Insurance Agent Required: No Beliefs That Will Affect Care: None marital status: Current Living Situation: Detention Current Living Situation Comment: [facility] current occupational status: retired How many Children do You have: 3 Feels Safe at Home: Yes during the past year weight has: remained stable Dental Care, Regularly: No Physical Activity Frequency: Does not Exercise Assistive Devices: Wheelchair Review of Systems Review of Systems: All systems reviewed & are unremarkable except as noted in HPI & below Physical Exam Physical Exam: Constitutional: Elderly, M, lying in bed, toxic appearing, vitals as above, NAD,arouses to verbal stimuli but confused Head: Normocephalic, Atraumatic Eyes: conjunctivae normal, anicteric sclerae ENMT: external ear and nose normal, oropharynx normal +horn to right cheek Neck: trachea midline, no thyromegaly normal visual inspection Respiratory: diminished bs throughout, poor insp effort due to cognition, otherwise clear, no W/R/R, normal inspection, no accessory muscle use Cardiovascular: RRR, +1/6SEM, b/l upper extremity edema Chest: normal inspection of chest Abdomen: S, NT, ND, +BS x 4 Musculoskeletal: no cyanosis or clubbing, +R BKA Skin: no rashes, warm and dry normal turgor Neurologic: no face palsy, no dysarthria CN's II-XI intact bilaterally and moves all extremities Results & Data Results & Data Vital Signs (Past 12 Hours) Vital Signs Temp Pulse Pulse Resp BP BP Pulse Ox 10/04/25 15:15 93 H 20 113/76 96 10/04/25 14:23 93 H 18 96/62 L 100 10/04/25 14:23 92 H 18 97 10/04/25 14:18 94 H 10/04/25 13:47 37.1 C 96 H 21 97/55 L 97 O2 Del Method O2 Flow Rate 10/04/25 15:15 Nasal Cannula 3 10/04/25 14:23 Nasal Cannula 3 10/04/25 14:23 Nasal Cannula 3 10/04/25 14:18 10/04/25 13:47 Nasal Cannula 3 Laboratory Results I have independently reviewed and interpreted patient's admitting labs including CBC, CMP, vbg, mag and troponin. Diagnostic Findings Chest X-Ray 10/04/25 14:23 XR chest 1V portable HISTORY: 80 years-old Male Sepsis acute sepsis COMPARISON: Chest CT 09/29/2025 TECHNIQUE: AP view of the chest FINDINGS: Cardiac silhouette is upper limits of normal in size. Unchanged linear subsegmental areas of left lung predominant atelectasis/scarring. No pneumothorax, pleural effusion or overt pulmonary edema. The bones appear grossly intact. IMPRESSION: No acute process. ACT 112: Negative or not required by law. The above report was generated using voice recognition software. It may contain grammatical, syntax or spelling errors. Electronically signed by: Fabio Simmons M.D. 10/04/2025 3:09 PM Abdomen/Pelvis CT 10/04/25 15:[address] WITHOUT CONTRAST CT DOSE: 1610.66 mGy.cm HISTORY: Acute sepsis with urinary tract infection sepsis, uti, worsening, recent pyelonephritis TECHNIQUE: Multiaxial CT images of the abdomen and pelvis were performed without contrast. A dose lowering technique was utilized adhering to the principles of ALARA. COMPARISON STUDY: 09/29/2025 FINDINGS: Cardiomegaly with coronary artery calcifications. Trace pleural effusions with subsegmental bibasilar opacities favoring atelectasis. A mild pneumonitis could appear similarly. Respiratory motion artifact limits the study. No pneumatosis or pneumoperitoneum. The unenhanced spleen, atrophic pancreas and adrenal glands are unchanged and within normal limits. Gallbladder and liver are unremarkable. Mild nonspecific bilateral perinephric stranding. Resolution of the previously described left-sided hydronephrosis. No perinephric fluid collections to suggest abscess. Decompressed bladder with Yee catheter in place. 3 cm hyperdense focus within the bladder lumen is again noted along with intraluminal air and debris. A portion of the urinary bladder partially extends into the moderate sized fat filled right inguinal hernia. Atherosclerosis of the aorta. No lymphadenopathy. Tiny hiatal hernia. Moderate colonic fecal retention with mild circumferential wall thickening of the rectum. Colonic diverticulosis without acute diverticulitis. Normal appendix. Chronic compression deformities of T12 and L1 are similar to previous. There is corresponding hyperkyphosis at this level. There is also minimal chronic superior endplate compression deformity of T10. No acute fracture. IMPRESSION: 1. Abnormal appearance of the urinary bladder with 3 cm intraluminal hyperdense debris versus calculus again noted. Correlate with urinalysis. A portion of the bladder partially extends into the fat filled right inguinal hernia. 2. Resolution of the previously noted left-sided hydronephrosis. 3. Constipation with findings suggestive of mild stercoral proctitis. 4. Trace pleural effusions with mild bibasilar opacities which may represents atelectasis versus pneumonitis. ACT 112: Negative or not required by law. The above report was generated using voice recognition software. It may contain grammatical, syntax or spelling errors. Electronically signed by: Fabio Simmons M.D. 10/04/2025 4:07 PM Medications Administered Medication List Discontinued Medications Sodium Chloride (Nss) 1,000 mls @ 999 mls/hr IV .Q1H1M DARIN Stop: 10/04/25 15:30 Last Infusion: 10/04/25 15:45 Dose: Infused Documented By: [id number] Admin: 10/04/25 14:50 Dose: 999 mls/hr Documented By: TDM Ceftriaxone Sodium (Rocephin) 1,000 mg in 50 mls @ 100 mls/hr IV NOW STA Stop: 10/04/25 15:59 Last Infusion: 10/04/25 16:03 Dose: Infused Documented By: [id number] Admin: 10/04/25 15:41 Dose: 100 mls/hr Documented By: [id number] ECG Additional Comments: I have independently reviewed and interpreted patient's admitting EKG which revealed: 94 nsr, bifasicular block, no st or t wave changes Code Status & VTE Plan Code Status DNR/DNI Supervising Physician Co-Signing Physician Notes I have seen and discussed the case with the collaborating advanced practitioner. I agree with the above H&P. I have reviewed and confirmed the patients medical history, the findings on physical examination, and the patients diagnosis and treatment plan with Rey CASTRO and agree with the information documented. evaluated at bedside. Patient awake and oriented to self, but very confused. Did not answer any questions nor was redirectable. No clear localizing symptoms. Exam revealed awake, confused elderly man. mouth breathing, but not in respiratory distress. Upper extremities edematous. RRR, JESSICA +, poor breath sounds 2.2 effort. stump on right with no edema, LLE with no swelling noted. CT abd/pelvis with pneumonitis? pleural effusions new from imaging in September, also constipation with stercoral proctitis #Acute metabolic encephalopathy #acute on chronic hypoxic resp failure doubt UTI as recently treated, possible pneumonia/pneumonitis from aspiration biofire negative follow up infectious work up, possible low liklihood of pneumonia, but risk factors for HAP at this time suspect encephalopathy potentially volume related and 2/2 proctitis noted bowel regimen, started with suppository for now hold on fluids, gentle diuersis with lasix x 1 and replace lytes empiric abx coverage until above infectious work up results rest of plan as above I spent a total of 20 minutes coordinating, documenting, and providing care for this patient excluding time spent in the performance of separately billed services. All of the aforementioned completed outside of collaborating with the assigned advanced practitioner for a full treatment plan. I have reviewed the advanced practitioner's documentation, and I agree with, and take responsibility for the plan of care
[2025-10-04] MEDS ORDERED: VANCOMYCIN CONSULT ACTIVE PRN (17:49)
[2025-10-04 18:06] LABS: Chlamydia pneumoniae PCR Not Detected (NotDetected); Coronavirus 229E PCR Not Detected (NotDetected); Coronavirus CoV-2 (COVID19)PCR Not Detected (NotDetected); Coronavirus HKU1 PCR Not Detected (NotDetected); Coronavirus NL63 PCR Not Detected (NotDetected); Coronavirus OC43PCR Not Detected (NotDetected); Human Metapneumovirus PCR Not Detected (NotDetected); Parainfluenza Virus 1 PCR Not Detected (NotDetected); Parainfluenza Virus 2 PCR Not Detected (NotDetected); Parainfluenza Virus 3 PCR Not Detected (NotDetected); Parainfluenza Virus 4 PCR Not Detected (NotDetected); Respiratory Syncytial VirusPCR Not Detected (NotDetected); Rhinovirus/Enterovirus PCR Not Detected (NotDetected)
[2025-10-04] MEDS: VANCOMYCIN HCL 1,750 MG in SODIUM CHLORIDE 0.9% 500 ML IV STA (18:15)
[2025-10-04] MEDS: PIPERACILLIN/TAZOBACTAM 4.5 GM/100 ML BAG IV STA (18:22)
--- NOTE | 2025-10-04 18:54 | CT Scan Report ---
CT chest without contrast History: Hypoxia Comparison: 09/29/2025 Technique: Helical CT imaging of the chest performed without IV contrast Dose reduction techniques were achieved by using automatic exposure control and/or adjustment of mA and/or kV according to patient size and/or use of iterative reconstruction technique. Findings: Multifocal tiny centrilobular and shaggy appearing nodules. Bibasilar subsegmental atelectasis. No pleural effusion. No pneumothorax. Heart size is normal. The thoracic aorta is normal in size. The pulmonary artery is normal in size. No significant pericardial effusion. No suspicious lymphadenopathy in the chest. Diffuse bronchial thickening, appears moderate or severe in the mid and lower lungs. Calcifications of the coronary arteries are heavy. Calcified aortic valve and mitral annulus. Limited visualized upper abdomen. No acute bony abnormalities. Chronic deformities of the spine similar to prior. Impression: Findings of bronchitis and multifocal infectious bronchiolitis. Electronically signed by Arron Maria 10-04-2025 6:54 PM
[2025-10-04] MEDS: FUROSEMIDE INJ 20 MG/2 ML VIAL IV ONE (18:55)
[2025-10-04] MEDS: POTASSIUM CHLORIDE / WTR 10 MEQ/100 ML PLCT IV SCH (19:42)
[2025-10-04] MEDS ORDERED: MAGNESIUM HYDROXIDE SUSP 30 ML UDC PO PRN (20:43)
[2025-10-04] MEDS ORDERED: ACETAMINOPHEN 325 MG TAB PO PRN (20:43)
[2025-10-04] MEDS ORDERED: GLUCOSE 10 TAB/TUBE PO PRN (20:43)
[2025-10-04] MEDS ORDERED: GLUCOSE 40% GEL 15 GM TUBE PO PRN (20:43)
[2025-10-04] MEDS ORDERED: ALUMINUM/MAGNESIUM SUSP 30 ML UDC PO PRN (20:43)
[2025-10-04] MEDS ORDERED: CARBOHYDRATES FOR HYPOGLYCEMIA PO PRN (20:43)
[2025-10-04] MEDS ORDERED: GLUCAGON FOR INJ 1 MG VIAL SQ PRN (20:43)
[2025-10-04] MEDS ORDERED: DEXTROSE 50% 50 ML SYRINGE IV PRN (20:43)
[2025-10-04] MEDS ORDERED: ONDANSETRON INJ 2 MG/ML 2 ML VIAL IV PRN (20:43)
--- NOTE | 2025-10-04 21:33 | Communication Note ---
Date of Service: October 04, 2025 RN
[2025-10-04] MEDS: AMITRIPTYLINE HCL 10 MG TAB PO SCH (21:34)
[2025-10-04] MEDS: DOCUSATE SODIUM 100 MG CAP PO SCH (21:35)
[2025-10-04] MEDS: LANTUS PER UNIT CHARGE SQ SCH (21:35)
[2025-10-04] MEDS: ATORVASTATIN 40 MG TAB PO SCH (21:35)
[2025-10-04] MEDS: APIXABAN 2.5 MG TAB PO SCH (21:35)
[2025-10-04] MEDS: TAMSULOSIN HCL 0.4 MG CAP PO SCH (21:36)
[2025-10-04] MEDS: PREGABALIN 75 MG CAP PO SCH (21:36)
[2025-10-04] MEDS: METOPROLOL TARTRATE 25 MG TAB PO SCH (21:36)
[2025-10-04] MEDS: LEVOTHYROXINE SODIUM 75 MCG TABLET PO SCH (21:37)
[2025-10-04] MEDS: INSULIN ASPART PER UNIT CHARGE SC SCH (21:39)
[2025-10-04] MEDS ORDERED: SOD PHOSPHATE/SOD BIPHOSPHATE ENEMA 132 ML BTL PR PRN (22:14)
[2025-10-05] MEDS ORDERED: Nursing to Pharmacy Communication SCH ×2 (00:30→17:00)
[2025-10-05] MEDS: ALBUT/IPRATROP 3MG/0.5MG NEB 3 ML VIAL NEB SCH (00:44)
[2025-10-05] MEDS: PIPERACILLIN/TAZOBACTAM 4.5 GM/100 ML BAG IV SCH (01:56)
[2025-10-05 04:56] LABS: Hematocrit (blood only) 26.4 % (42.0-52.0); Hemoglobin 8.7 g/dL (14.0-18.0); Immature Granulocytes # (auto) 0.07 K/uL (0.01-0.20); Immature Granulocytes % (auto) 0.5 %; Mean Corpuscular Hemoglobin 29.4 pg (25.0-34.0); Mean Corpuscular Volume 89.2 fL (80.0-100.0); Platelet Count 252 K/uL (130-400); RDW Standard Deviation 43.7 fL (36.4-46.3); Red Blood Count 2.96 M/uL (4.70-6.10); White Blood Count 15.37 K/ul (4.8-10.8)
[2025-10-05 05:27] LABS: Alanine Aminotransferase 7.0 U/L (7-52); Albumin Globulin Ratio 0.6 (0.9-2); Albumin Level 2.6 gm/dl (3.4-5.0); Alkaline Phosphatase 54.0 U/L (34-104); Anion Gap 11.0 (3-11); Bilirubin,Total 0.5 mg/dl (0.2-1.0); Blood Urea Nitrogen 51.0 mg/dl (6-23); Calcium 8.2 mg/dl (8.6-10.3); Carbon Dioxide 27.0 mmol/L (21-32); Chloride 100.0 mmol/L (98-107); Creatinine Clr Calc Pharmacy 19.2 ml/min; Globulin 4.3 gm/dl (2.5-4.0); Glucose 303.0 mg/dl (70-99(Fasting)); Magnesium 1.9 mg/dl (1.7-2.4); Potassium 3.5 mmol/L (3.5-5.1); Sodium 138.0 mmol/L (136-145); Total Protein 6.9 gm/dl (6.0-8.3)
[2025-10-05] MEDS: INSULIN ASPART PER UNIT CHARGE SC SCH ×2 (07:05→17:18)
[2025-10-05] MEDS ORDERED: VANCOMYCIN CONSULT ACTIVE PRN (07:56)
[2025-10-05] MEDS: FINASTERIDE 5 MG TAB PO SCH (08:48)
[2025-10-05] MEDS ORDERED: SOD PHOSPHATE/SOD BIPHOSPHATE ENEMA 132 ML BTL PR SCH (09:00)
[2025-10-05] MEDS: VANCOMYCIN HCL / NSS 1,000 MG/270 ML BAG IV ONE (10:07)
--- NOTE | 2025-10-05 12:42 | Electrocardiogram Report ---
Test Reason : Blood Pressure : */* mmHG Vent. Rate : 94 BPM Atrial Rate : 94 BPM P-R Int : 186 ms QRS Dur : 128 ms QT Int : 398 ms P-R-T Axes : 66 -63 75 degrees QTcB Int : 497 ms Normal sinus rhythm Right bundle branch block Left anterior fascicular block Bifascicular block Minimal voltage criteria for LVH, may be normal variant ( R in aVL ) Septal infarct (cited on or before 29-Sep-2025) Abnormal ECG When compared with ECG of 29-Sep-2025 10:07, Questionable change in initial forces of Septal leads Confirmed by Hill Echevarria ([id number]) on 10/05/2025 12:41:53 PM Referred By: [facility] [place] Confirmed By: Hill Echevarria
--- NOTE | 2025-10-05 13:21 | Pharmacy Report ---
Pharmacy PK ABX Note - Date of Service October 05, 2025 - Assessment and Plan Assessment 80 year old M receiving empiric vancomycin, piperacillin/tazobactam, and doxycycline for treatment of sepsis presumed secondary to HAP/aspiration pneumonia. Pertinent microbiologic data includes: Positive MRSA Nasal Swab, blood cultures x 2 pending, urine culture no growth. Recently hospitalized x 2 (08/08-08/17 and 09/29-10/01), received cefepime/cefdinir during last admission/at discharge. Day # 2 of antimicrobial therapy. Plan Vancomycin * Loading dose: 1750 mg IV x 1 * Obtained vanco level prior to ongoing dosing given poor renal function * Level resulted as 12.8 mcg/mL * Maintenance dose: 1000 mg IV x 1 * Random level ordered for: 10/06/25 * Will hopefully be able to determine reasonable maintenance dose following lab result on 10/06. Pharmacy will continue to follow and will adjust dose/frequency as necessary. Thank you. Pharmacy has transitioned to AUC monitoring for vancomycin. AUC/DIAMANTE is the preferred PK/PD target and is associated with decreased risk of nephrotoxicity compared to traditional trough targets.
--- NOTE | 2025-10-05 14:35 | Hospitalist Progress Note ---
Date of Service October 05, 2025 Assessment & Plan (1) Metabolic encephalopathy: (2) Sepsis: Plan Patient is an 80-year-old male with past medical history significant for insulin-dependent DM type II with polyneuropathy, history of diabetic ulcer of the toe of the right foot and osteomyelitis s/p right BKA, CKD-4, HLD, paroxysmal A-fib anticoagulated on Eliquis, HTN, chronic HFpEF, chronic Yee catheter placement secondary to BPH with chronic outlet obstruction and bilater al hydronephrosis, history of recurrent catheter associated UTIs, severe hearing loss, PAD, chronic respiratory failure on home O2, chronic anemia, history of MRSA, & past tobacco abuse who presented to the ED from [facility] due to worsened AMS, hypoxia and episode of vomiting. #Sepsis #Acute on Chronic Hypoxic Respiratory Failure #Aspiration Pneumonia #R/o HAP #Metabolic Encephalopathy -pt improved today hemodynamically but mentation unchanged -RN at [facility] reports pt choking on milk and then he vomited. He then became short of breath and was coughing. No reported fever. Chronically on 2L but did become more hypoxic in low 80s with increased O2 requirement. -positive MRSA nasal screen -metabolic encephalopathy likely in setting of sepsis Plan: -start thiamine, folic acid, check B12, TSH -f/u culture results -continue vancomycin, zosyn, doxy pending culture results -start LR at 80cc/hr given no PO intake and encephalopathy -start IS and flutter valve -decrease dose of lyrica, stop amytriptyline (risk outweighs benefit given age) -avoid anticholinergic medications #Chronic yee 2/2 BPH with chronic outlet obs -f/u with urology outpatient #Constipation/Proctitis bowel regimen #CKD-4 -baseline cr 2.8-3.3 -renal fxn around baseline #Elevated troponin -suspect demand ischemia, resolving #T2DM insulin dependent -continue lantus/novolog per protocol I spent a total of 55 minutes in direct patient care, including [id number] time with the patient and/or family, reviewing medical records, ordering and reviewing diagnostic tests, and coordinating care with other healthcare providers. This time includes: history taking, physical examination, medical decision making, counseling, ECG interpretation, imaging interpretation, lab interpretation, orders, and education, excluding time spent in the performance of separately billed services. Admission and Anticipated Discharge Date Admission Date: October 04, 2025 Subjective Patient seen and examined at bedside. Patient minimally interactive but arousable and states he is comfortable. Review of Systems Review of Systems: -unable to ask full ROS due to mental st atus Physical Exam Physical Exam: Gen: A&O 1 NAD HEENT: NCAT, EOMI, not icteric. External ears normal. No rhinorrhea. Moist mucous membranes. Neck: Supple, full range of motion, no observable masses, No meningeal sign. Lungs: No Respiratory distress. CV: RRR, no edema. Abdomen: Soft, nondistended, No rebound tenderness. MSK: No joint swelling, no redness. Skin: scattered ecchymoses Neuro: Normal Gait, Grossly intact. Psych: confused Results & Data Results & Data Vital Signs (Past 12 Hours) Vital Signs Temp Pulse Resp BP Pulse Ox O2 Del Method O2 Flow Rate 10/05/25 12:22 84 16 97 Nasal Cannula 4 10/05/25 11:18 36.8 C 70 20 104/66 100 Nasal Cannula 3 10/05/25 07:27 Nasal Cannula 4 10/05/25 07:24 76 16 96 Nasal Cannula 4 10/05/25 07:17 36.8 C 79 20 130/69 100 Nasal Cannula 3 10/05/25 03:30 36.8 C 76 18 108/70 99 Nasal Cannula 3.5 Laboratory Results -personally reviewed, WBC uptrending, creatinine 2.94 at baseline, trop downtrending, positive MRSA nasal screen Medications Administered Albuterol (Albut/Ipratrop 3mg/0.5mg Neb 3 Ml Vial) 3 ml NEB Q6R DARIN; Protocol Stop: 11/04/25 00:59 Last Admin: 10/05/25 12:22 Dose: 3 ml Documented By: Admin: 10/05/25 07:20 Dose: 3 ml Documented By: Admin: 10/05/25 00:44 Dose: 3 ml Documented By: DANIAL Apixaban (Apixaban 2.5 Mg Tab) 2.5 mg PO BID [facility] Stop: 11/03/25 20:59 Last Admin: 10/05/25 13:47 Dose: 2.5 mg Documented By: Admin: 10/04/25 21:35 Dose: Not Given Documented By: TWILA Atorvastatin Calcium (Atorvastatin 40 Mg Tab) 40 mg PO HS [facility] Stop: 11/03/25 20:59 Last Admin: 10/04/25 21:35 Dose: Not Given Documented By: TWILA Finasteride (Finasteride 5 Mg Tab) 5 mg PO QAM [facility] Stop: 11/04/25 08:59 Last Admin: 10/05/25 08:48 Dose: Not Given Documented By: FAISAL Piperacillin Sod/Tazobactam Sod (Zosyn) 4.5 gm in 100 mls @ 25 mls/hr IV Q12H [facility]; Protocol Stop: 10/12/25 01:59 Last Admin: 10/05/25 13:52 Dose: 25 mls/hr Documented By: Infusion: 10/05/25 06:09 Dose: Infused Documented By: Admin: 10/05/25 01:56 Dose: 25 mls/hr Documented By: TWILA Doxycycline Hyclate (Vibramycin) 100 mg in 100 mls @ 50 mls/hr IV Q12H [facility] Stop: 10/10/25 07:29 Last Infusion: 10/05/25 11:19 Dose: Infused Documented By: Admin: 10/05/25 08:46 Dose: 50 mls/hr Documented By: FAISAL Insulin Aspart (Insulin Aspart Per Unit Charge) 0 units SC Q6 [facility] Stop: 11/04/25 05:59 Last Admin: 10/05/25 11:54 Dose: Not Given Documented By: Admin: 10/05/25 07:05 Dose: Not Given Documented By: FAISAL Insulin Glargine (Lantus Per Unit Charge) 0 units SQ [facility]; Protocol Stop: 11/03/25 20:59 Last Admin: 10/04/25 21:35 Dose: Not Given Documented By: TWILA Levothyroxine Sodium (Levothyroxine Sodium 75 Mcg Tablet) 75 mcg PO [facility] Stop: 11/03/25 20:59 Last Admin: 10/04/25 21:37 Dose: Not Given Documented By: TWILA Metoprolol Tartrate (Metoprolol Tartrate 25 Mg Tab) 12.5 mg PO BID [facility] Stop: 11/03/25 20:59 Last Admin: 10/05/25 13:48 Dose: 12.5 mg Documented By: Admin: 10/04/25 21:36 Dose: Not Given Documented By: TWILA Pantoprazole Sodium (Pantoprazole 40 Mg Tab) 40 mg PO BID [facility] Stop: 11/03/25 20:59 Last Admin: 10/05/25 08:48 Dose: Not Given Documented By: Admin: 10/04/25 21:36 Dose: Not Given Documented By: TWILA Tamsulosin HCl (Tamsulosin Hcl 0.4 Mg Cap) 0.4 mg PO HS [facility] Stop: 11/03/25 20:59 Last Admin: 10/04/25 21:36 Dose: Not Given Documented By: TWILA
[2025-10-05] MEDS: FOLIC ACID 1 MG TAB PO SCH (16:25)
[2025-10-05] MEDS: THIAMINE HCL 100 MG TAB PO SCH (16:26)
[2025-10-05] MEDS: LACTATED RINGER'S 1,000 ML IV SCH (16:27)
[2025-10-05] MEDS: DOCUSATE SODIUM/SENNA 50/8.6MG TAB PO SCH (16:32)
[2025-10-05] MEDS: PREGABALIN 25 MG CAP PO SCH (21:47)
[2025-10-06 02:00] LABS: A calco-baum cmplx NotReported Not Detected (NotDetected); Bact fragilis Not Reported Not Detected (NotDetected); Blood Culture Id Panel See PCR Comment (NotDetected); C auris Not Reported Not Detected (NotDetected); Calbicans Not Reported Not Detected (NotDetected); Candida glabrata Not Reported Not Detected (NotDetected); Candida krusei Not Reported Not Detected (NotDetected); Cneoformans/gatti Not Reported Not Detected (NotDetected); Cparapsilosis Not Reported Not Detected (NotDetected); Ctropicalis Not Reported Not Detected (NotDetected); E cloacae compx Not Reported Not Detected (NotDetected); Efaecalis Not Reported Not Detected (NotDetected); Efaecium Not Reported Not Detected (NotDetected); Enterobacterales Not Reported Not Detected (NotDetected); Escherichia coli Not Reported Not Detected (NotDetected); H influenzae Not Reported Not Detected (NotDetected); K aerogenes Not Reported Not Detected (NotDetected); Koxytoca Not Reported Not Detected (NotDetected); Kpneumoniae grp Not Reported Not Detected (NotDetected); Lmonocyt Not Reported Not Detected (NotDetected); N meningitidis Not Reported Not Detected (NotDetected); P aeruginosa Not Reported Not Detected (NotDetected); Proteus spp Not Reported Not Detected (NotDetected); Salmonella spp Not Reported Not Detected (NotDetected); Staph lugdunensis Not Reported Not Detected (NotDetected); Staph spp. Not Reported DETECTED (NotDetected); Staphaureus Not Reported Not Detected (NotDetected); Staphepi Not Reported DETECTED (NotDetected); Staphylococcus spp. DETECTED (NotDetected); Stenmaltophilia Not Reported Not Detected (NotDetected); Strep agal(GrpB) Not Reported Not Detected (NotDetected); Strep pneum Not Reported Not Detected (NotDetected); Strep pyog (GrpA) Not Reported Not Detected (NotDetected); Strep spp Not Reported Not Detected (NotDetected); mecAC Resistant Gene DETECTED (NotDetected)
[2025-10-06 02:16] LABS: Staphylococcus epidermidis DETECTED (NotDetected)
[2025-10-06 06:10] LABS: Hematocrit (blood only) 24.9 % (42.0-52.0); Hemoglobin 8.1 g/dL (14.0-18.0); Mean Corpuscular Hemoglobin 29.2 pg (25.0-34.0); Mean Corpuscular Volume 89.9 fL (80.0-100.0); Platelet Count 249 K/uL (130-400); RDW Standard Deviation 42.8 fL (36.4-46.3); Red Blood Count 2.77 M/uL (4.70-6.10); White Blood Count 12.09 K/ul (4.8-10.8)
[2025-10-06 06:28] LABS: Anion Gap 8.0 (3-11); Blood Urea Nitrogen 48.0 mg/dl (6-23); Calcium 8.4 mg/dl (8.6-10.3); Carbon Dioxide 29.0 mmol/L (21-32); Chloride 102.0 mmol/L (98-107); Creatinine Clr Calc Pharmacy 20.4 ml/min; Glucose 174.0 mg/dl (70-99(Fasting)); Magnesium 1.9 mg/dl (1.7-2.4); Potassium 3.7 mmol/L (3.5-5.1); Sodium 139.0 mmol/L (136-145)
[2025-10-06 07:15] VITALS: RESP 18; O2SAT 99
[2025-10-06 07:59] VITALS: BP 107/61; TEMP 97.9
--- NOTE | 2025-10-06 08:20 | Pharmacy Report ---
Pharmacy PK ABX Note - Date of Service October 06, 2025 - Assessment and Plan Assessment 80 year old M receiving empiric vancomycin, piperacillin/tazobactam, and doxycycline for treatment of sepsis presumed secondary to HAP/aspiration pneumonia. Pertinent microbiologic data includes: Positive MRSA Nasal Swab, blood cultures x 2 (1 of 2 growing MRSE, which represents possible contamination), urine culture no growth. Recently hospitalized x 2 (08/08-08/17 and 09/29-10/01), received cefepime/cefdinir during last admission/at discharge. Day # 3 of antimicrobial therapy. Plan Vancomycin * 1 g IV x 1 given 10/05 @1007 * Random level obtained 10/06/25 resulted as 17 mcg/mL. * Change to 750 mg IV every 24 hours * Predicted AUC at steady state: 593 mg/L.hr * Will repeat level in the next 48-72 hours if therapy is continued and/or change in patient clinical status Pharmacy will continue to follow and will adjust dose/frequency as necessary. Thank you. Pharmacy has transitioned to AUC monitoring for vancomycin. AUC/DIAMANTE is the preferred PK/PD target and is associated with decreased risk of nephrotoxicity compared to traditional trough targets.
[2025-10-06] MEDS: VANCOMYCIN 750 MG in SODIUM CHLORIDE 0.9% 250 ML IV SCH (08:24)
[2025-10-06 12:38] VITALS: PULSE 70
--- NOTE | 2025-10-06 13:47 | Discharge Summary ---
Discharge Summary Date of Service October 06, 2025 Principal Dx & Hospital Course #1 = Principal Diagnosis (1) Metabolic encephalopathy: (2) Sepsis: Plan Patient is an 80-year-old male with past medical history significant for ins ulin-dependent DM type II with polyneuropathy, history of diabetic ulcer of the toe of the right foot and osteomyelitis s/p right BKA, CKD-4, HLD, paroxysmal A- fib anticoagulated on Eliquis, HTN, chronic HFpEF, chronic Yee catheter placement secondary to BPH with chronic outlet obstruction and bilateral hydronephrosis, history of recurrent catheter associated UTIs, severe hearing loss, PAD, chronic respiratory failure on home O2, chronic anemia, history of MRSA, & past tobacco abuse who presented to the ED from [facility] due to worsened AMS, hypoxia and episode of vomiting. #Sepsis #Acute on Chronic Hypoxic Respiratory Failure #Aspiration Pneumonia #R/o HAP #Metabolic Encephalopathy -pt improved today hemodynamically but mentation unchanged -RN at [facility] reports pt choking on milk and then he vomited. He then became short of breath and was coughing. No reported fever. Chronically on 2L but did become more hypoxic in low 80s with increased O2 requirement. -positive MRSA nasal screen -metabolic encephalopathy likely in setting of sepsis Plan: -start thiamine, folic acid, check B12, TSH -f/u culture results -continue vancomycin, zosyn, doxy pending culture results -start LR at 80cc/hr given no PO intake and encephalopathy -start IS and flutter valve -decrease dose of lyrica, stop amytriptyline (risk outweighs benefit given age) -avoid anticholinergic medications #Chronic yee 2/2 BPH with chronic outlet obs -f/u with urology outpatient #Constipation/Proctitis bowel regimen #CKD-4 -baseline cr 2.8-3.3 -renal fxn around baseline #Elevated troponin -suspect demand ischemia, resolving #T2DM insulin dependent -continue lantus/novolog per protocol I spent a total of 55 minutes in direct patient care, including [id number]-sidd time with the patient and/or family, reviewing medical records, ordering and reviewing diagnostic tests, and coordinating care with other healthcare providers. This time includes: history taking, physical examination, medical decision making, counseling, ECG interpretation, imaging interpretation, lab interpretation, orders, and education, excluding time spent in the performance of separately billed services. Notes For Next Care Provider 80-year-old male with past medical history significant for insulin-dependent DM type II with polyneuropathy, history of diabetic ulcer of the toe of the right foot and osteomyelitis s/p right BKA, CKD-4, HLD, paroxysmal A-fib anticoagulated on Eliquis, HTN, chronic HFpEF, chronic Yee catheter placement secondary to BPH with chronic outlet obstruction and bilateral hydronephrosis, history of recurrent catheter associated UTIs, severe hearing loss, PAD, chronic respiratory failure on home O2, chronic anemia, history of MRSA, & past tobacco abuse who presented to the ED from [facility] due to worsened AMS, hypoxia and episode of vomiting. Found to have aspiration pneumonia with sepsis, admitted to medicine. On medicine, speech consulted, recommended palliative care discussion given chronic aspiration. Discussed goals with , including liklihood of prognosis on scale of months given chronic aspiration. understands this. Deescalated meds to reduce polypharmacy, in particular stopped amitriptyline. Treated with abx and fluids with improvement. On 10/06/2025 patient medically stable for discharge back to [facility]. To do: [ ] f/u with speech [ ] consideration of hospice transition Medication Changes From Visit -see below Admission HPI Per Admitting Provider Patient is an 80-year-old male with past medical history significant for insulin-dependent DM type II with polyneuropathy, history of diabetic ulcer of the toe of the right foot and osteomyelitis s/p right BKA, CKD-4, HLD, paroxysmal A-fib anticoagulated on Eliquis, HTN, chronic HFpEF, chronic Yee catheter placement secondary to BPH with chronic outlet obstruction and bilateral hydronephrosis, history of recurrent catheter associated UTIs, severe hearing loss, PAD, chronic respiratory failure on home O2, chronic anemia, history of MRSA, & past tobacco abuse who presented to the ED from [facility] due to worsened AMS, hypoxia and episode of vomiting. History is unobtainable from patient secondary to underlying cognition. History obtained from ED provider along with staff at [facility]. Of significance patient was recently hospitalized 09/29 to 10/01 secondary to altered mental status, catheter associated UTI secondary to Proteus mirabilis and elevated troponin. His urinary catheter was exchanged during this hospital stay. He was also seen and evaluated by urology due to concern for left hydronephrosis which was felt to be chronic in nature. He transition to oral cefdinir and was discharged back to facility on 10/01. [facility] reports that they feel he may have been discharged too early. Staff noted today that he started choking on milk. He then became increasingly more lethargic, short of breath and oxygen saturations were in the 80s. In ED patient was lethargic but arousable. He was alert to himself only. ED nurse reports being able to wean patient back to his normal 2 L of oxygen. He did receive a nebulizer treatment in the ED. ROS unobtainable from patient. Discharge Exam Gen: A&O 3 NAD HEENT: NCAT, EOMI, not icteric. External ears normal. No rhinorrhea. Moist mucous membranes. Neck: Supple, full range of motion, no observable masses, No meningeal sign. Lungs: No Respiratory distress. CV: RRR, no edema. Abdomen: Soft, nondistended, No rebound tenderness. MSK: No joint swelling, no redness. Skin: scattered ecchymoses Neuro: Normal Gait, Grossly intact. Psych: much less confused today Updated Medication List Medication Instructions Recorded Confirmed Type insulin glargine 100 unit/mL (3 5 unit subcut HS 04/07/24 10/04/25 History mL) subcutaneous pen (Lantus Solostar U-100 Insulin) atorvastatin 40 mg tablet 40 mg PO HS 03/15/25 10/04/25 History finasteride 5 mg tablet 5 mg PO QAM 03/15/25 10/04/25 History glucagon 1 mg solution for 1 mg IM DIRECTED PRN 03/15/25 10/04/25 History injection (Glucagon Emergency Kit) Hypoglycemia sennosides 8.6 mg-docusate sodium 1 tab PO BID 03/15/25 10/04/25 History 50 mg tablet (Senokot-S) tamsulosin 0.4 mg capsule 0.4 mg PO HS 03/15/25 10/04/25 History pantoprazole 40 mg tablet,delayed 40 mg PO BID #60 tabs 03/20/25 10/04/25 Rx release furosemide 20 mg tablet (Lasix) 20 mg PO QAM 08/08/25 10/04/25 History ipratropium 0.5 mg-albuterol 3 mg 3 ml inhalation Q4 PRN Shortness 08/08/25 10/04/25 History (2.5 mg base)/3 mL nebulization Of Breath Or Wheezing soln apixaban 2.5 mg tablet (Eliquis) 2.5 mg PO BID 09/29/25 10/04/25 History bisacodyl 10 mg rectal suppository 10 mg MN DAILY PRN Constipation 09/29/25 10/04/25 History (Dulcolax (bisacodyl)) insulin aspart U-100 100 unit/mL See Rx Instructions .Route .COMPLEX 09/29/25 10/04/25 History subcutaneous solution levothyroxine 75 mcg tablet 75 mcg PO HS 09/29/25 10/04/25 History menthol 0.44 %-zinc oxide 20 % 1 ea topical TID 09/29/25 10/04/25 History topical ointment sodium phosphates 19 gram-7 118 ml MN DAILY PRN Constipation 09/29/25 10/04/25 History gram/118 mL enema (Fleet Enema) acetaminophen 325 mg tablet 650 mg PO Q6H PRN TEMP >100/PAIN 10/04/25 10/04/25 History (Tylenol) insulin aspart U-100 100 unit/mL 2 unit subcut TIDM 10/04/25 10/04/25 History subcutaneous solution (Novolog U-100 Insulin aspart) metoprolol tartrate 25 mg tablet 12.5 mg PO BID 10/04/25 10/04/25 History doxycycline hyclate 100 mg capsule 100 mg PO BID 5 days #10 caps 10/06/25 Rx pregabalin 25 mg capsule 25 mg PO BID 7 days #14 caps 10/06/25 Rx Hospital Stay Data Consultations 10/04/25 16:54 ED Decision to Admit Stat Diagnostic Imagining Performed 10/04/25 15:02 CT abd pelvis wo con Stat 10/04/25 17:26 CT chest diagnostic wo con Stat Pending Results Patient Have Any Pending Studies at Discharge: No Discharge Instructions Given to Patient (Per Discharging Provider) Diagnosis: aspiration pnuemonia, HAP, sepsis, dehydration Incidental Findings: urinary bladder debris, proctitis Follow Ups: PCP, speech therapy 1. Please follow up with speech therapy, PCP. 2. Please follow these aspiration precautions: nectar thick liquids, minced and moist diet, mouth care 2x daily. 3. Please take medication list as prescribed, reduced some medications this admission. 4. Wound care for wounds. Total Time Total Time Spent Total Time Spent (In Minutes): I spent a total of 35 minutes in direct patient care, including [id number] time with the patient and/or family, reviewing medical records, ordering and reviewing diagnostic tests, and coordinating care with other healthcare provide rs. This time includes: history taking, physical examination, medical decision making, counseling, ECG interpretation, imaging interpretation, lab interpretation, orders, and education, excluding time spent in the performance of separately billed services.
== END 2025-10-06 13:33 | DRG 871 ==
LOC: ED 13:56 → SUATTDRO 17:34 → 2S 17:34